=== PATIENT | male | born 1935 | race Caucasian/White ===

== ENCOUNTER → 2017-11-01 08:18 | Outpatient (CLI) | payer MEDICARE, SELFPAY ==
[2017-11-01 12:03] LABS: Absolute Lymphocyte Count 1.66 X10^3/ul (0.83-4.51); Absolute Neutrophil Count 2.8 X10^3/uL (2.0-7.7); Basophil# 0.02 X10^3/uL; Basophil% 0.4 % (0-1); Eosinophil# 0.24 X10^3/uL; Eosinophils% 4.5 % (0-5); Hematocrit 40.2 % (40-54); Hemoglobin 12.5 g/dl (13.0-16.5); Lymphocyte # 1.66 X10^3/ul (4.0); Lymphocyte % 31.1 % (19-41); Mean Corp Hgb Conc 31.1 g/gl (32-36); Mean Corpuscular Hgb 30.3 pg (27.0-32.0); Mean Corpuscular Volume 97.6 fL (80-94); Mean Platelet Vol. 11.2 fl (6.2-12.0); Monocyte% 11.2 % (0-10); Neutrophil # 2.82 X10^3/uL (2.7-7.7); Neutrophil % 52.8 % (47-70); POSITIVE COUNT NO; POSITIVE DIFFERENTIAL NO; POSITIVE MORPHOLOGY NO; Platelet Count 136 K/mm3 (150-450); RBC Distribution Width CV 14.9 % (11.6-14.6); RBC Distribution Width SD 53.1 fl (35.1-43.9); Red Blood Count 4.12 M/mm3 (4.6-6.2); White Blood Count 5.3 K/mm3 (4.4-11.0)
[2017-11-01 12:19] LABS: ALB/GLOB Ratio 0.7 RATIO (0.9-2.4); AST(SGOT) 31 U/L (15-37); Alanine Aminotransfer ALT/SGPT 31 U/L (16-61); Albumin, Serum 3.2 g/dL (3.2-5.0); Alkaline Phosphatase 87 U/L (45-117); Anion Gap 5 (5-15); BUN 14 mg/dL (7-18); BUN/Creat Ratio 17.1 RATIO (10-20); Calcium,Total 8.9 mg/dL (8.5-10.1); Chloride 104 mmol/L (98-107); Cholesterol 137 mg/dL (200); Creatinine, Serum 0.82 mg/dL (0.70-1.30); EST Glomerular Filtration Rate 96 mL/min (>60); Est Glom Filt Rate - Afr Amer 116 mL/min (>60); Globulin 4.6 g/dL (2.2-4.2); Glucose 109 mg/dL (74-106); High Density Lipoprotein 54 mg/dL; Protein, Total 7.8 g/dL (6.4-8.2); Rheumatoid Factor < 10.0 IU/mL (<15); Sodium Level 141 mmol/L (136-145); T4 Free Direct 1.14 ng/dL (0.76-1.46); Thyroid Stim Hormone (TSH) 2.28 uIU/mL (0.358-3.74); Triglycerides 107 mg/dL; Very Low Density Lipoprotein 21 mg/dL (5-40)
[2017-11-03 09:54] LABS: CCP IgG Antibodies 70 units (0-19)
== END ==
PROVIDERS: Family Provider Family Medicine; PCP Family Medicine; Visit Provider Family Medicine
DX: I10 Essential (primary) hypertension (principal); K74.3 Primary biliary cirrhosis; E78.5 Hyperlipidemia, unspecified; M06.4 Inflammatory polyarthropathy
CPT/HCPCS: 36415; 80053; 80061; 84439; 84443; 85025; 86200; 86431

== ENCOUNTER → 2017-11-16 14:04 | Outpatient (CLI) | payer MEDICARE, SELFPAY ==
--- NOTE | 2017-11-16 14:13 | RAD_ITS ---
STUDY: X-RAY - RIGHT HAND REASON FOR EXAM: Male, 82 years old. SOME PAIN IN HANDS. HX OF RA. TECHNIQUE: 3 view(s) of the hand. COMPARISON: None. FINDINGS: Normal radiocarpal articulation. Normal distal radioulnar joint. Normal visualized carpal bones. Normal carpal articulations Normal carpometacarpal articulation of the thumb. Normal second through fifth carpometacarpal joints. Normal metacarpi. Normal metacarpophalangeal joint of the thumb. Normal interphalangeal joint of the thumb. Normal proximal and distal phalanges of the thumb. Normal metacarpophalangeal joints of the second through fifth fingers. There is diffuse articular joint space narrowing of the proximal and distal interphalangeal joints of the second through fifth fingers, but without erosive changes or periarticular soft tissue swelling. Normal phalanges of the second through fifth fingers. The soft tissue structures are unremarkable. RAD/Hand Min 3 Views IMPRESSION: There is diffuse articular joint space narrowing of the proximal and distal interphalangeal joints of the second through fifth fingers, but without erosive changes or periarticular soft tissue swelling. Electronically Signed: Josh Vaughn MD at 17:32 EST , Service support ,
--- NOTE | 2017-11-16 14:13 | RAD_ITS ---
STUDY: X-RAY - LEFT HAND REASON FOR EXAM: Male, 82 years old. Pain in joints of both hands. Hx of RA. TECHNIQUE: 3 view(s) of the hand. COMPARISON: None. FINDINGS: Normal radiocarpal articulation. Normal distal radioulnar joint. Normal visualized carpal bones. Normal carpal articulations Normal carpometacarpal articulation of the thumb. Normal second through fifth carpometacarpal joints. Normal metacarpi. There is degenerative arthrosis of the metacarpophalangeal (MCP) joints. Normal interphalangeal joint of the thumb. Normal proximal and distal phalanges of the thumb. Normal metacarpophalangeal joints of the second through fifth fingers. There is diffuse articular joint space narrowing of the proximal and distal interphalangeal joints of the second through fifth fingers, but without erosive changes or periarticular soft tissue swelling. Normal phalanges of the second through fifth fingers. The soft tissue structures are unremarkable. RAD/Hand Min 3 Views IMPRESSION: Degenerative joint disease of the hand, as described above. Electronically Signed: Josh Vaughn MD at 17:32 EST , Service support ,
--- NOTE | 2017-11-16 14:17 | RAD_ITS ---
STUDY: X-RAY - PELVIS REASON FOR EXAM: Male, 82 years old. SOME PAIN IN HIPS. HX OF RA. TECHNIQUE: One view of the pelvis was obtained. COMPARISON: None. FINDINGS: There is a non-specific bowel gas pattern. Normal visualized soft tissue structures. Normal bilateral iliac wings, sacroiliac joints and visualized sacrum. Normal visualized bilateral superior and inferior pubic rami. Normal pubic symphysis. Normal ischial tuberosities. Normal visualized right femoral head. There is osteoarthritic spur formation of the right acetabular rim. There is mild articular joint space narrowing of the right hip. Normal visualized left femoral head. There is osteoarthritic spur formation of the left acetabular rim. There is mild articular joint space narrowing of the left hip. RAD/Pelvis 1 or 2 Views IMPRESSION: Degenerative findings of the hips. Electronically Signed: Josh Vaughn MD at 17:26 EST , Service support ,
--- NOTE | 2017-11-16 14:19 | RAD_ITS ---
STUDY: X-RAY CHEST REASON FOR EXAM: Male, 82 years old. SOME PAIN IN HIPS. HX OF RA. TECHNIQUE: Frontal and lateral view of the chest. COMPARISON: None. FINDINGS: The lungs are clear and expanded. There is no demonstrated pleural abnormality. Normal size heart. Normal mediastinum and tiara. Normal visualized pulmonary arteries. Normal visualized aortic arch and descending thoracic aorta. There are diffuse degenerative changes of the visualized thoracic spine. Normal visualized ribs, clavicles, and shoulders. There is no demonstrated abnormality of the visualized soft tissue structures of the upper abdomen. RAD/Chest PA and Lateral IMPRESSION: There are no acute findings in the chest. Electronically Signed: Josh Vaughn MD at 17:26 EST , Service support ,
[2017-11-16 15:54] LABS: Absolute Lymphocyte Count 2.04 X10^3/ul (0.83-4.51); Absolute Neutrophil Count 3.6 X10^3/uL (2.0-7.7); Basophil# 0.03 X10^3/uL; Basophil% 0.4 % (0-1); Eosinophil# 0.33 X10^3/uL; Eosinophils% 4.9 % (0-5); Hematocrit 40.5 % (40-54); Hemoglobin 12.8 g/dl (13.0-16.5); Lymphocyte # 2.04 X10^3/ul (4.0); Lymphocyte % 30.5 % (19-41); Mean Corp Hgb Conc 31.6 g/gl (32-36); Mean Corpuscular Hgb 30.7 pg (27.0-32.0); Mean Corpuscular Volume 97.1 fL (80-94); Mean Platelet Vol. 11.3 fl (6.2-12.0); Monocyte# 0.68 X10^3/uL; Monocyte% 10.2 % (0-10); Neutrophil # 3.59 X10^3/uL (2.7-7.7); Neutrophil % 53.9 % (47-70); Platelet Count 158 K/mm3 (150-450); RBC Distribution Width SD 53.4 fl (35.1-43.9); Red Blood Count 4.17 M/mm3 (4.6-6.2); White Blood Count 6.7 K/mm3 (4.4-11.0)
[2017-11-16 15:58] LABS: POSITIVE COUNT NO; POSITIVE DIFFERENTIAL NO; POSITIVE MORPHOLOGY NO
[2017-11-16 16:15] LABS: ALB/GLOB Ratio 0.8 RATIO (0.9-2.4); AST(SGOT) 30 U/L (15-37); Alanine Aminotransfer ALT/SGPT 28 U/L (16-61); Albumin, Serum 3.7 g/dL (3.2-5.0); Alkaline Phosphatase 98 U/L (45-117); Anion Gap 5 (5-15); BUN 15 mg/dL (7-18); BUN/Creat Ratio 18.6 RATIO (10-20); CRP < 2.90 mg/L (0.0-3.0); Chloride 101 mmol/L (98-107); Creatinine, Serum 0.81 mg/dL (0.70-1.30); EST Glomerular Filtration Rate 98 mL/min (>60); Erythrocyte Sedimentation Rate 17 mm/hr (0-20); Est Glom Filt Rate - Afr Amer 118 mL/min (>60); Globulin 4.5 g/dL (2.2-4.2); Glucose 87 mg/dL (74-106); Potassium 4.3 mmol/L (3.5-5.1); Protein, Total 8.2 g/dL (6.4-8.2); Sodium Level 137 mmol/L (136-145)
[2017-11-24 14:08] LABS: QNTFERON TB Ag Minus Nil Value < 0 IU/mL (.); QNTFERON TB Ag Value 0.07 IU/mL (.); QNTFERON TB Mitogen Value > 10.00 IU/mL (.); QNTFERON TB Nil Value 0.19 IU/mL (.)
[2017-11-24 14:13] LABS: HEPATITIS B SURFACE AG Negative (Negative); HLA B27 Negative (.); Hep B Surface Antibodies Reactive (.); Hep C Antibodies <0.1 s/co ratio (0.0-0.9); QNTIFERON TB Gold Negative (Negative)
== END ==
PROVIDERS: Family Provider Family Medicine; PCP Family Medicine; Visit Provider Internal Medicine Rheumatology
DX: L40.59 Other psoriatic arthropathy (principal); L40.8 Other psoriasis; K21.9 Gastro-esophageal reflux disease without esophagitis; H40.9 Unspecified glaucoma; K74.3 Primary biliary cirrhosis; I25.10 Atherosclerotic heart disease of native coronary artery without angina pectoris; E78.5 Hyperlipidemia, unspecified; N40.1 Benign prostatic hyperplasia with lower urinary tract symptoms
CPT/HCPCS: 36415; 71046; 72170; 73130; 80053; 81374; 85025; 85652; 86140; 86480; 86706; 86803; 87340

== ENCOUNTER → 2018-02-06 13:19 | Outpatient (CLI) | payer MEDICARE, SELFPAY ==
[2018-02-06 14:25] LABS: ALB/GLOB Ratio 0.8 RATIO (0.9-2.4); AST(SGOT) 25 U/L (15-37); Alanine Aminotransfer ALT/SGPT 21 U/L (16-61); Albumin, Serum 3.3 g/dL (3.2-5.0); Alkaline Phosphatase 92 U/L (45-117); Anion Gap 6 (5-15); BUN 15 mg/dL (7-18); BUN/Creat Ratio 17.1 RATIO (10-20); Calcium,Total 9.2 mg/dL (8.5-10.1); Chloride 103 mmol/L (98-107); Creatinine, Serum 0.88 mg/dL (0.70-1.30); EST Glomerular Filtration Rate 89 mL/min (>60); Est Glom Filt Rate - Afr Amer 108 mL/min (>60); Globulin 4.2 g/dL (2.2-4.2); Glucose 102 mg/dL (74-106); Potassium 4.2 mmol/L (3.5-5.1); Protein, Total 7.5 g/dL (6.4-8.2); Sodium Level 141 mmol/L (136-145)
== END ==
PROVIDERS: Family Provider Family Medicine; PCP Family Medicine; Visit Provider Internal Medicine Rheumatology
DX: L40.59 Other psoriatic arthropathy (principal); L40.9 Psoriasis, unspecified; L40.8 Other psoriasis; K21.9 Gastro-esophageal reflux disease without esophagitis; H40.9 Unspecified glaucoma; K74.3 Primary biliary cirrhosis; I25.10 Atherosclerotic heart disease of native coronary artery without angina pectoris; E78.5 Hyperlipidemia, unspecified; N40.1 Benign prostatic hyperplasia with lower urinary tract symptoms
CPT/HCPCS: 36415; 80053

== ENCOUNTER → 2018-07-21 14:48 | Outpatient (CLI) | payer MEDICARE, SELFPAY ==
[2018-07-21 16:15] LABS: Absolute Lymphocyte Count 2.14 X10^3/ul (0.83-4.51); Absolute Neutrophil Count 2.9 X10^3/uL (2.0-7.7); Basophil# 0.01 X10^3/uL; Basophil% 0.2 % (0-1); Eosinophil# 0.24 X10^3/uL; Eosinophils% 4.1 % (0-5); Hematocrit 40.5 % (40-54); Hemoglobin 12.8 g/dl (13.0-16.5); Lymphocyte # 2.14 X10^3/ul (4.0); Lymphocyte % 36.2 % (19-41); Mean Corp Hgb Conc 31.6 g/gl (32-36); Mean Corpuscular Hgb 31.8 pg (27.0-32.0); Mean Corpuscular Volume 100.5 fL (80-94); Mean Platelet Vol. 11.3 fl (6.2-12.0); Monocyte# 0.65 X10^3/uL; Neutrophil # 2.87 X10^3/uL (2.7-7.7); Neutrophil % 48.5 % (47-70); Platelet Count 117 K/mm3 (150-450); RBC Distribution Width CV 14.7 % (11.6-14.6); RBC Distribution Width SD 52.9 fl (35.1-43.9); Red Blood Count 4.03 M/mm3 (4.6-6.2); White Blood Count 5.9 K/mm3 (4.4-11.0)
[2018-07-21 16:17] LABS: POSITIVE COUNT NO; POSITIVE DIFFERENTIAL NO; POSITIVE MORPHOLOGY NO
[2018-07-21 16:38] LABS: ALB/GLOB Ratio 0.8 RATIO (0.9-2.4); AST(SGOT) 27 U/L (15-37); Alanine Aminotransfer ALT/SGPT 30 U/L (16-61); Albumin, Serum 3.3 g/dL (3.2-5.0); Alkaline Phosphatase 85 U/L (45-117); Anion Gap 6 (5-15); BUN 15 mg/dL (7-18); BUN/Creat Ratio 16.2 RATIO (10-20); Calcium,Total 8.8 mg/dL (8.5-10.1); Chloride 104 mmol/L (98-107); Creatinine, Serum 0.93 mg/dL (0.70-1.30); EST Glomerular Filtration Rate 83 mL/min (>60); Est Glom Filt Rate - Afr Amer 101 mL/min (>60); Globulin 4.3 g/dL (2.2-4.2); Glucose 77 mg/dL (74-106); Potassium 4.4 mmol/L (3.5-5.1); Protein, Total 7.6 g/dL (6.4-8.2); Sodium Level 142 mmol/L (136-145); Thyroid Stim Hormone (TSH) 1.69 uIU/mL (0.358-3.74)
== END ==
PROVIDERS: Family Provider Family Medicine; PCP Family Medicine; Visit Provider Family Medicine
DX: K74.3 Primary biliary cirrhosis (principal); I10 Essential (primary) hypertension; E78.5 Hyperlipidemia, unspecified
CPT/HCPCS: 36415; 80053; 84443; 85025

== ENCOUNTER → 2019-04-16 11:00 | Outpatient (CLI) | payer MEDICARE, SELFPAY ==
[2019-04-16 12:26] LABS: Absolute Lymphocyte Count 1.83 X10^3/uL (0.83-4.51); Basophil# 0.03 X10^3/uL; Basophil% 0.5 % (0-1); Eosinophil# 0.25 X10^3/uL; Eosinophils% 4.3 % (0-5); Hematocrit 41.7 % (40-54); Hemoglobin 13.6 g/dL (13.0-16.5); Lymphocyte # 1.83 X10^3/ul (4.0); Lymphocyte % 31.6 % (19-41); Mean Corp Hgb Conc 32.6 g/dL (32-36); Mean Corpuscular Hgb 31.9 pg (27.0-32.0); Mean Corpuscular Volume 97.7 fL (80-94); Mean Platelet Vol. 10.9 fl (6.2-12.0); Monocyte# 0.66 X10^3/uL; Monocyte% 11.4 % (0-10); NRBC Flagged by Analyzer 0 % (0-5); Neutrophil # 3.01 X10^3/uL (2.7-7.7); Platelet Count 135 K/mm3 (150-450); RBC Distribution Width CV 13.9 % (11.6-14.6); Red Blood Count 4.27 M/mm3 (4.6-6.2); White Blood Count 5.8 K/mm3 (4.4-11.0)
[2019-04-16 12:54] LABS: ALB/GLOB Ratio 0.8 RATIO (0.9-2.4); AST(SGOT) 29 U/L (15-37); Alanine Aminotransfer ALT/SGPT 25 U/L (16-61); Albumin, Serum 3.4 g/dL (3.2-5.0); Alkaline Phosphatase 89 U/L (45-117); Anion Gap 9 (5-15); BUN 16 mg/dL (7-18); BUN/Creat Ratio 20.3 RATIO (10-20); Calcium,Total 9.1 mg/dL (8.5-10.1); Chloride 104 mmol/L (98-107); Creatinine, Serum 0.79 mg/dL (0.70-1.30); EST Glomerular Filtration Rate 100 mL/min (>60); Est Glom Filt Rate - Afr Amer 121 mL/min (>60); Globulin 4.3 g/dL (2.2-4.2); Glucose 88 mg/dL (74-106); Potassium 4.1 mmol/L (3.5-5.1); Protein, Total 7.7 g/dL (6.4-8.2); Sodium Level 142 mmol/L (136-145)
[2019-04-16 12:55] LABS: Erythrocyte Sedimentation Rate 55 mm/hr (0-20)
== END ==
PROVIDERS: Family Provider Family Medicine; PCP Family Medicine; Visit Provider Family Medicine
DX: E78.5 Hyperlipidemia, unspecified (principal); M06.9 Rheumatoid arthritis, unspecified; D69.6 Thrombocytopenia, unspecified; K74.3 Primary biliary cirrhosis
CPT/HCPCS: 36415; 80053; 84439; 84443; 85025; 85652

== ENCOUNTER 2019-06-02 16:11 | Inpatient (IN) | payer MEDICARE, SELFPAY ==
[2019-06-02] VITALS (9 sets, daily range): BP systolic 127–170; BP diastolic 60–77; PULSE 44–62; RESP 14–16; TEMP 36.5–36.6; O2SAT 95–99; BMI 33.0; BMI 32.0
--- NOTE | 2019-06-02 16:26 | EKG12_ITS ---
Test Reason : CP Blood Pressure : / mmHG Vent. Rate : 045 BPM Atrial Rate : 045 BPM P-R Int : 202 ms QRS Dur : 084 ms QT Int : 458 ms P-R-T Axes : 050 009 071 degrees QTc Int : 396 ms Sinus bradycardia Otherwise normal ECG Confirmed by VICTOR MANUEL FREDERICK, GORDON ([id number]), publications editor DENISE MONTESINOS ([id number]) on 06/05/2019 11:50:38 AM Referred By: CHI Confirmed By:GUILLERMO RUSH MD
--- NOTE | 2019-06-02 16:30 | RAD_ITS ---
STUDY: X-RAY CHEST REASON FOR EXAM: Male, 84 years old. Chest pain TECHNIQUE: Single AP portable view of the chest. COMPARISON: Prior study of November 16, 2017 FINDINGS: night monitor leads are present. The lungs are clear and expanded. There is no demonstrated pleural abnormality. Normal size heart. Normal mediastinum and tiara. Normal visualized pulmonary arteries. There are calcified plaques of the aortic arch. Normal visualized thoracic spine. Normal visualized ribs, clavicles, and shoulders. There is no demonstrated abnormality of the visualized soft tissue structures of the upper abdomen. RAD/Chest 1 View (Portable) IMPRESSION: Calcified plaques of the aortic arch. No acute cardiopulmonary disease process is seen. Electronically Signed: Rahul Bailey MD at 17:05 EDT , Service support ,
[2019-06-02 16:48] LABS: Absolute Lymphocyte Count 2.37 X10^3/uL (0.83-4.51); Absolute Neutrophil Count 2.9 X10^3/uL (2.0-7.7); Basophil# 0.03 X10^3/uL; Basophil% 0.5 % (0-1); Eosinophils% 4.8 % (0-5); Hematocrit 41.7 % (40-54); Hemoglobin 13.2 g/dL (13.0-16.5); Lymphocyte # 2.37 X10^3/ul (4.0); Lymphocyte % 37.7 % (19-41); Mean Corp Hgb Conc 31.7 g/dL (32-36); Mean Corpuscular Hgb 31.7 pg (27.0-32.0); Monocyte# 0.64 X10^3/uL; Monocyte% 10.2 % (0-10); NRBC Flagged by Analyzer 0 % (0-5); Neutrophil # 2.93 X10^3/uL (2.7-7.7); Neutrophil % 46.6 % (47-70); Platelet Count 135 K/mm3 (150-450); RBC Distribution Width CV 13.8 % (11.6-14.6); RBC Distribution Width SD 50.4 fl (35.1-43.9); Red Blood Count 4.17 M/mm3 (4.6-6.2); White Blood Count 6.3 K/mm3 (4.4-11.0)
[2019-06-02] MEDS: Aspirin 81 MG TAB.CHEW 324 MG PO (16:51)
[2019-06-02 17:05] LABS: Anion Gap 0 (5-15); BUN 16 mg/dL (7-18); BUN/Creat Ratio 18.9 RATIO (10-20); Calcium,Total 9.2 mg/dL (8.5-10.1); Chloride 105 mmol/L (98-107); Creatinine, Serum 0.85 mg/dL (0.70-1.30); EST Glomerular Filtration Rate 92 mL/min (>60); Est Glom Filt Rate - Afr Amer 112 mL/min (>60); Estimated Creatinine Clearance 73.54 ml/min; Glucose 88 mg/dL (74-106); Potassium 4.2 mmol/L (3.5-5.1); Sodium Level 139 mmol/L (136-145)
--- NOTE | 2019-06-02 17:19 | ED.DCSUM_ITS ---
- ER Visit Summary Date of Service: 06/02/19 Chief Complaint: Dyspnea History of Present Illness: The patient is a 84 M history of CAD with [address] in 2009 and one earlier this year. No history of CAD and hypertension. Patient states that since he is had exertional dyspnea and nausea. No chest pain. States he is on a treadmill on accelerated heart rate and dyspneic also diaphoresis. He denies any fever or chills. No hemoptysis. No leg swelling. Physical Examination: Older male no acute distress vital signs stable afebrile. Heart rate 49 and next around his baseline. HEENT exam unremarkable. Neck nontender no JVD. Lungs clear to auscultation bilaterally. Heart regular rhythm rate about 50 no murmur. Chest were nontender. Abdomen soft nontender. Normal bowel sounds no peritoneal signs. Moving all 4 extremities. Calves nontender without edema or cords. Equal symmetrical radial pulses. Neurologically is awake and alert with no focal motor deficits. Test Results: Chest x-ray portable one view shows no acute abnormality read both by myself the radiologist. EKG sinus bradycardia rate of 45 with no acute signs of SD or ischemia. CBC unremarkable white count of 6 and hemoglobin 13. Chemistries unremarkable normal creatinine and gap. Troponin is slightly abnormal at 0.135. Emergency Department Course and Treatment: Patient treated with p.o. aspirin. On repeat exam at 1717 p.m. he is unchanged. Remains pain-free. He and I and his discussed all this test results and plan for admission. Treatment Plan: Hospitalist on page for admission. Disposition: Admission Impression: Acute exertional dyspnea Abnormal troponin History of CAD with 3 cardiac stents This note was generated with [employer] dictation software. It may contain incorrect words, spelling, and punctuation that were not noted in review of the chart prior to signing ED Disposition - Plan for ED Patient: Referrals: Manuel Logan MD [Primary Care Provider] -
--- NOTE | 2019-06-02 17:46 | NURSING ---
89 WAN EXERTIONAL DYSPNEA, ABN TROP, CAD
--- NOTE | 2019-06-02 17:59 | PCM.HP.STD ---
Problem List (1) Anginal equivalent Status: Acute (2) Nonrheumatic aortic valve stenosis Status: Chronic (3) Essential hypertension Status: Chronic (4) Atherosclerosis of coronary artery of [place] heart without angina pectoris Status: Chronic Comment: 2.75 x 15 mm Promus to mid LAD, 3.0 x 12 mm Promus to proximal LAD 08/14/10; 2.5 x 8 mm Xience Alpine FIDEL to mid LAD 11/15/16 (5) Presence of stent in coronary artery Status: Chronic Comment: 2.75 x 15 mm Promus to mid LAD, 3.0 x 12 mm Promus to proximal LAD 08/14/10; 2.5 x 8 mm Xience [place]pine FIDEL to mid LAD 11/15/16 (6) Primary biliary cirrhosis Status: Chronic (7) Cholelithiasis without obstruction Status: Chronic (8) Hyperlipidemia Status: Chronic History of Present Illness Date of Admission: 06/02/19 Chief Complaint: Dyspnea on exertion The patient is a 84 year old M with history of coronary artery disease status post 3 stent, last one in 2016 came to ED with dyspnea on exertion since . He had similar presentation of dyspnea on exertion during previous episodes of [place] where he required stenting. Last , patient was on treadmill and felt dyspnea and nausea and diaphoresis. Since then he gets shortness of breath on exertion and climbing stairs. Denies any chest pressure chest pain but he never had during previous [place] episodes. In ED, EKG was done and reported a sinus bradycardia at 45 bpm. NE interval 202 ms. Previous EKG in October 2016 reported a sinus bradycardia with sinus arrhythmia at [address]-T changes suggestive of ischemia. First troponin is elevated 0.135. [] Past Medical History Past Medical History (Chronic Problems): Chronic Problems (Last Updated 05/25/19 @ 09:58 by Gini Estrada) Nonrheumatic aortic valve stenosis (Chronic) Essential hypertension (Chronic) Atherosclerosis of coronary artery of [place] heart without angina pectoris (Chronic) 2.75 x 15 mm Promus to mid LAD, 3.0 x 12 mm Promus to proximal LAD 08/14/10; 2.5 x 8 mm Xience Alpine FIDEL to mid LAD 11/15/16 Presence of stent in coronary artery (Chronic) 2.75 x 15 mm Promus to mid LAD, 3.0 x 12 mm Promus to proximal LAD 08/14/10; 2.5 x 8 mm Xience Alpine FIDEL to mid LAD 11/15/16 Primary biliary cirrhosis (Chronic) Cholelithiasis without obstruction (Chronic) Hyperlipidemia (Chronic) Medical History: Medical History (Last Updated 05/25/19 @ 09:58 by Gini Estrada) Nonrheumatic aortic valve stenosis (Chronic) I35.0 Essential hypertension (Chronic) I10 Atherosclerosis of coronary artery of [place] heart without angina pectoris (Chronic) I25.10 2.75 x 15 mm Promus to mid LAD, 3.0 x 12 mm Promus to proximal LAD 08/14/10; 2.5 x 8 mm Xience Alpine FIDEL to mid LAD 11/15/16 Primary biliary cirrhosis (Chronic) K74.3 Cholelithiasis without obstruction (Chronic) K80.20 Hyperlipidemia (Chronic) E78.5 Asthma J45.909 BPH (benign prostatic hyperplasia) N40.0 Bradycardia R00.1 Glaucoma H40.9 Osteoarthritis M19.90 Psoriasis L40.9 Thrombocytopenia D69.6 Allergies Penicillins Allergy (Verified 06/02/19 16:21) Rash Home Medications: Ambulatory Orders Medication Instructions Recorded Aspirin E.C. [Ecotrin] 81 mg PO DAILY@0800 12/06/16 Ezetimibe [Zetia] 10 mg PO DAILY 12/06/16 Ursodiol [Huey] 500 mg PO BID 12/06/16 albuterol sulfate HFA 90 2 puff INHALATION Q4H PRN g 05/25/19 mcg/actuation aerosol inhaler atorvastatin 20 mg tablet 20 mg PO QHS 05/25/19 baclofen 10 mg tablet 10 mg PO TID PRN 05/25/19 finasteride 5 mg tablet 5 mg PO DAILY 05/25/19 lisinopril 2.5 mg tablet 2.5 mg PO DAILY tab 05/25/19 multivitamin tablet 1 tab PO DAILY 05/25/19 nitroglycerin 0.4 mg sublingual 0.4 mg SUBLINGUAL Q5-15M PRN 05/25/19 tablet Brimonidine Tartrate [Alphagan P] 1 drp EACH EYE DAILY PRN 06/02/19 Cetirizine HCl [Zyrtec] 10 mg PO 06/02/19 Clopidogrel Bisulfate [Clopidogrel] 1 tab PO DAILY 06/02/19 Magnesium Hydroxide [Milk of 500 mg PO QHS 06/02/19 Magnesia] Netarsudil Mesylate [Rhopressa] 1 drp EACH EYE DAILY PRN 06/02/19 Travoprost 0.004% [Travatan-Z 1 drp EACH EYE DAILY 06/02/19 0.004% Eye Drop] Surgical History: Surgical History (Last Updated 05/25/19 @ 09:58 by Gini Estrada) Presence of stent in coronary artery (Chronic) Z95.5 2.75 x 15 mm Promus to mid LAD, 3.0 x 12 mm Promus to proximal LAD 08/14/10; 2.5 x 8 mm Xience Alpine FIDEL to mid LAD 11/15/16 History of appendectomy Z90.49 History of cataract extraction Z98.49 History of partial colectomy Z90.49 Surgical History: appendectomy, colectomy - 12 section of colon removed. , tonsillectomy - as infant/child, - - calcification of kidney and gall stones. Smoking Status: Never smoker - *Family History Paternal Family History: Family History (Last Updated 05/25/19 @ 09:42 by Gini Etsrada) Father Hypertension Grandmother Hypertension Review of Systems Constitutional: Denies: Chills, Fever, Weight Change HEENT: Denies: Head Aches, Sinus Congestion, Sinus Drainage Cardiovascular: Reports: Light Headedness. Denies: Chest Pain, Chest Pressure, Chest Tightness, Palpitations Respiratory: Reports: Shortness of breath upon exertion. Denies: Cough, Shortness of breath at rest, Sputum production Gastrointestinal: Denies: Abdominal Pain, Nausea, Vomiting Genitourinary: Denies: Dysuria Musculoskeletal: Denies: Joint Pain, Joint Tenderness Skin: Denies: Rash, Wounds Neurological: Denies: Numbness, Tingling, Focal weakness Psychiatric: Denies: Anxiety, Depression, Homicidal Ideations, Suicidal Ideations Hematologic/ Lymphatic: Denies: Easy Bruising, Easy Bleeding VTE Information - Inpt Only VTE Present on Admission: No VTE Mechan Device Prophylaxis: None VTE Pharm Prophylaxis ordered?: Yes Patient Problems: Active and Suspected Problems (Last Updated 05/25/19 @ 09:58 by Gini Estrada) Anginal equivalent (Acute) - Physical Exam General: Alert, Oriented x3, Cooperative HEENT: Atraumatic, PERRLA, EOMI, Normocephalic Neck: Supple, No JVD, Negative Carotid Bruits Lungs: Clear to auscultation, Normal air movement, No rhonchi, No wheeze, No rales Cardiovascular: Regular rate, Regular Rhythm, Normal S1, Normal S2, No murmurs Abdomen: Bowel Sounds Present, Soft, Non Tender, Non-Distended Extremities: Capillary Refill Less than 3 Seconds, Edema - Subtle 1+ ankle edema. Skin: No rashes, No breakdown Musculoskeletal: No Tenderness to Palpation of Joints or Extremities, Arthritic Changes Neurological: Cranial nerves II-XII grossly intact, Deep Tendon Reflexes 2+/4 and Symmetrical, Neuro grossly intact, Motor Exam 5/5 strength throughout Psych/Mental Status: Normal Affect, Appropriate Vital Signs Temp Pulse Resp BP Pulse Ox 97.7 F L 48 L 16 155/75 H 98 06/02/19 16:13 06/02/19 17:36 06/02/19 17:36 06/02/19 17:36 06/02/19 17:36 Oxygen Delivery Method Room Air Weight: 244 lb 0.827 oz Body Mass Index (BMI) 33.0 Laboratory Tests Past 24 Hrs 06/02/19 06/02/19 16:20 16:20 WBC 6.3 RBC 4.17 L Hgb 13.2 Hct 41.7 MCV 100.0 H MCH 31.7 MCHC 31.7 L RDW Std Deviation 50.4 H RDW Coeff of Angelia 13.8 Plt Count 135 L MPV 11.0 Immature Gran % (Auto) 0.200 Neut % (Auto) 46.6 L Lymph % (Auto) 37.7 [place] % (Auto) 10.2 H Eos % (Auto) 4.8 Baso % (Auto) 0.5 Absolute Neuts (auto) 2.9 Absolute Lymphs (auto) 2.37 Nucleated RBC % 0 Sodium 139 Potassium 4.2 Chloride 105 Carbon Dioxide 34.0 H Anion Gap 0 L BUN 16 Creatinine 0.85 Estim Creat Clear Calc 73.54 Est GFR (MDRD) Af Amer 112 Est GFR (MDRD) Non-Af 92 BUN/Creatinine Ratio 18.9 Glucose 88 Calcium 9.2 Troponin I 0.135 H Assessment/Plan All Active Problems (Last Updated 05/25/19 @ 09:58 by Gini Estrada) Anginal equivalent (Acute) The patient is a 84 year old M with history of coronary artery disease status post 3 stent, last one in 2016 came to ED with dyspnea on exertion since . He had similar presentation of dyspnea on exertion during previous episodes of [place] where he required stenting. Last , patient was on treadmill and felt dyspnea and nausea and diaphoresis. Since then he gets shortness of breath on exertion and climbing stairs. Denies any chest pressure chest pain but he never had during previous [place] episodes. In ED, EKG was done and reported a sinus bradycardia at 45 bpm. NE interval 202 ms. Previous EKG in October 2016 reported a sinus bradycardia with sinus arrhythmia at [address]-T changes suggestive of ischemia. First troponin is elevated 0.135. 1. Angina equivalent; most probably non-STEMI with history of coronary artery status post stents: In view of previous history of similar episodes, it seems patient has non-STEMI. Cycle cardiac enzymes. Patient's data support specialist Dr. [place] who did PCI in [facility]. We will consult him. Continue aspirin and Plavix. Started on Lovenox 1 mg/kg body weight twice daily. Patient has a history of coronary artery disease status post 3 stents, 2 stents in 2009 and 2016. Patient heart rate in 40s therefore does not qualify for beta-marilee. On lisinopril. Echo is ordered. 2. Valvular heart disease with mild MR, mild aortic stenosis mild to moderate AI with chronic heart failure with preserved EF: Patient had echo in July 2017 reported as EF 55% with segmental wall dysfunction. Left atrium mildly enlarged. Right atrium mildly enlarged. Normal RV size and systolic function. Mild MR. 1-2+ TR, RVSP is 28 mmHg. Mild aortic stenosis with mild to moderate AI. 3. Hypertension and dyslipidemia. Blood pressure is elevated, 160/60mmHg. Increase lisinopril to 5 mg daily. 4. Primary biliary cirrhosis with cholelithiasis, chronic without obstruction: Patient does not have abdominal pain. On Huey 500 mg twice daily DVT prophylaxis: On Lovenox therapeutic dose. Laboratory Results 06/02/19 16:20: WBC 6.3, RBC 4.17 L, Hgb 13.2, Hct 41.7, MCV 100.0 H, MCH 31.7, MCHC 31.7 L, RDW Std Deviation 50.4 H, RDW Coeff of Angelia 13.8, Plt Count 135 L, MPV 11.0, Immature Gran % (Auto) 0.200, Neut % (Auto) 46.6 L, Lymph % (Auto) 37.7, [place] % (Auto) 10.2 H, Eos % (Auto) 4.8, Baso % (Auto) 0.5, Absolute Neuts (auto) 2.9, Absolute Lymphs (auto) 2.37, Nucleated RBC % 0 06/02/19 16:20: Sodium 139, Potassium 4.2, Chloride 105, Carbon Dioxide 34.0 H, Anion Gap 0 L, BUN 16, Creatinine 0.85, Estim Creat Clear Calc 73.54, Est GFR (MDRD) Af Amer 112, Est GFR (MDRD) Non-Af 92, BUN/Creatinine Ratio 18.9, Glucose 88, Calcium 9.2, Troponin I 0.135 H Clinical Impression(s) from Imaging Studies Chest X-Ray 06/02/19 16:30 IMPRESSION: Calcified plaques of the aortic arch. No acute cardiopulmonary disease process is seen. Code Visit Inpatient E&M: 49160 Init Hosp L3
--- NOTE | 2019-06-02 18:21 | EKG12_ITS ---
Test Reason : DYSRHYTHMIA Blood Pressure : / mmHG Vent. Rate : 045 BPM Atrial Rate : 045 BPM P-R Int : 204 ms QRS Dur : 080 ms QT Int : 460 ms P-R-T Axes : 056 -08 057 degrees QTc Int : 397 ms Sinus bradycardia Otherwise normal ECG When compared with ECG of 02-JUN-2019 16:10, MANUAL COMPARISON REQUIRED, DATA IS UNCONFIRMED Confirmed by NATALIA FREDERICK, JOE ([id number]), script editor DENISE MONTESINOS ([id number]) on 06/05/2019 12:23:22 PM Referred By: WAN Confirmed By:JOE FISHER MD
[2019-06-02] MEDS: Clopidogrel Bisulfate 300 MG Tablet PO (18:32)
[2019-06-02 18:38] LABS: Magnesium 2.2 mg/dL (1.6-2.6)
[2019-06-02 18:41] LABS: AST(SGOT) 25 U/L (15-37); Alanine Aminotransfer ALT/SGPT 23 U/L (16-61); Albumin, Serum 3.3 g/dL (3.2-5.0); Alkaline Phosphatase 86 U/L (45-117); Bilirubin, Direct 0.14 mg/dL (0.00-0.30); Globulin 4.4 g/dL (2.2-4.2); Protein, Total 7.7 g/dL (6.4-8.2)
[2019-06-02] MEDS: 0.9% Normal Saline 1,000 ML 75 ML IV (18:53)
[2019-06-02] MEDS: Enoxaparin 100 MG/ML Syringe SC (18:54)
[2019-06-02 19:16] LABS: BNP,B-Type NATRIURETIC PEPTIDE 90.6 pg/mL (0-100)
[2019-06-02] MEDS: BRIMONIDINE TARTRATE 5 ML DROPS 1 ML OP (21:36)
[2019-06-02] MEDS: Atorvastatin Calcium 20 MG Tablet PO (21:37)
[2019-06-02] MEDS: Lisinopril 5 MG Tablet PO (21:37)
[2019-06-03] VITALS (9 sets, daily range): BP systolic 115–143; BP diastolic 60–88; PULSE 40–53; RESP 16–18; TEMP 36.4–36.7; O2SAT 96–98
--- NOTE | 2019-06-03 05:55 | ECHOD_ITS ---
Version 2 Reason For Study: NSTEMI Procedure This was a 2D Doppler, Color Flow transthoracic echocardiogram. Exam performed portable in patient room. Left Ventricle Normal size and thickness. The estimated ejection fraction is 60 %. Normal diastology for age. No regional wall motion abnormalities noted. Right Ventricle Normal RV size. Normal systolic function. Atria The left atrium is mildly enlarged. The right atrium is mildly enlarged. No doppler evidence for ASD. Mitral Valve There is mild mitral annular calcification. There is no mitral valve stenosis. Mild (1+) mitral valve insufficiency. Tricuspid Valve There is no tricuspid stenosis. Mild tricuspid valve insufficiency. Pulmonary artery systolic pressure is 30 mmHg. Aortic Valve Moderate diffuse aortic valve thickening. Mild aortic stenosis. Mild-Moderate (1-2+) aortic valve insufficiency. Pulmonic Valve There is no pulmonic valvular stenosis. No pulmonic valve insufficiency. Great Vessels Normal aortic root. Pericardium/Pleural No pericardial effusion. MMode/2D Measurements & Calculations LVIDd: 4.5 cm IVSd: 1.1 cm LVOT diam: 2.2 cm LVIDs: 2.6 cm LVPWd: 1.2 cm LVOT area: 3.9 cm2 FS: 42.1 % LAV(MOD-bp): 76.6 ml LVAd ap4: 28.2 cm2 SV(MOD-sp4): 47.9 ml LAV(MOD-bp) Indexed: 33.6 ml/m2 EDV(MOD-sp4): 83.9 ml LAV(MOD-sp2): 88.1 ml EDV(sp4-el): 85.0 ml LAV(MOD-sp4): 64.3 ml LVAs ap4: 15.7 cm2 ESV(MOD-sp4): 35.9 ml ESV(sp4-el): 32.7 ml EF(MOD-sp4): 57.2 % EF(sp4-el): 61.5 % SV(sp4-el): 52.3 ml Aortic Valve Planimetry: 1.6 cm2 LA A4 area: 23.7 cm2 RA A4 area: 18.8 cm2 Time Measurements MV dec time: 0.35 sec Doppler Measurements & Calculations MV E max frantz: 73.8 cm/sec Lat Peak E' Frantz: 8.8 cm/sec Med Peak E' Frantz: 5.5 cm/sec MV A max frantz: 87.8 cm/sec E/E' lat: 8.4 E/E' med: 13.4 MV E/A: 0.84 MV V2 max: 86.3 cm/sec MV P1/2t max frantz: 70.7 cm/sec Ao V2 max: 257.9 cm/sec MV max P.0 mmHg MV P1/2t: 127.7 msec Ao max P.6 mmHg MV V2 mean: 42.5 cm/sec Ao V2 mean: 164.3 cm/sec MV mean P.85 mmHg MV dec slope: 162.3 cm/sec2 Ao mean P.4 mmHg MV V2 VTI: 34.7 cm MVA(P1/2t): 1.7 cm2 Ao V2 VTI: 59.3 cm MVA(VTI): 3.3 cm2 SHRUTHI(I,D): 1.9 cm2 SHRUTHI(V,D): 1.5 cm2 AI max frantz: 378.3 cm/sec LV V1 max: 102.4 cm/sec SV(LVOT): 113.1 ml AI max P.3 mmHg LV V1 max P.2 mmHg LV V1 mean P.4 mmHg AI dec slope: 130.5 cm/sec2 LV V1 mean: 73.4 cm/sec AI P1/2t: 849.3 msec LV V1 VTI: 29.0 cm PA V2 max: 85.7 cm/sec TR max frantz: 251.9 cm/sec TR max P.4 mmHg Interpretation Summary The estimated ejection fraction is 60 %. The left atrium is mildly enlarged. The right atrium is mildly enlarged. Mild (1+) mitral valve insufficiency. Mild aortic stenosis. Mild-Moderate (1-2+) aortic valve insufficiency. Normal diastology for age. Ordering Physician: Jeffrey Berkowitz Referring Physician: Manuel Logan Performed By: Roberto Cadena RCS
[2019-06-03 07:01] LABS: Cholesterol 114 mg/dL (200); High Density Lipoprotein 43 mg/dL; Thyroid Stim Hormone (TSH) 2.49 uIU/mL (0.358-3.74); Triglycerides 131 mg/dL; Very Low Density Lipoprotein 26 mg/dL (5-40)
[2019-06-03] MEDS: BRIMONIDINE TARTRATE 5 ML DROPS 1 ML OP ×2 (09:35→21:06)
[2019-06-03] MEDS: Multivitamins,Therapeutic Tablet 1 TABLET PO ×2 (09:36→18:17)
[2019-06-03] MEDS: Clopidogrel Bisulfate 75 MG Tablet PO (09:36)
[2019-06-03] MEDS: Ezetimibe 10 MG Tablet PO (09:36)
[2019-06-03] MEDS: Finasteride 5 MG Tablet PO (09:36)
[2019-06-03] MEDS: Ursodiol 250 MG Tablet 500 MG PO ×2 (09:36→18:17)
[2019-06-03] MEDS: Aspirin E.C. 81 MG Tablet PO (09:36)
[2019-06-03] MEDS: Enoxaparin 100 MG/ML Syringe SC ×2 (09:36→21:06)
--- NOTE | 2019-06-03 11:48 | PN_ITS ---
Patient Problems: Active and Suspected Problems (Last Updated 05/25/19 @ 09:58 by Gini Estrada) Anginal equivalent (Acute) Subjective: Patient seen and examined. he was admitted with a complaint of shortness of breath with exertion, which had been going on for ~ 2 days prior to admission. He described it as similar to the SOB he got when he got is CT. He had associated naueas and diaphoresis. EKG done on admission showed sinus bradycardia with HR of 45bpm. Initial troponin is 0.135. He is being managed for NSTEMI Patient has no complaints this morning. SOB hasnt recurred, because he has not been moving around much. Review of systems is otherwise negative. Labs and vitals reviewed. Hew has remained bradycardic, with HR going as low as 40. Vitals/I&O's: Vital Signs Temp Pulse Resp BP Pulse Ox 98.1 F 53 L 17 115/62 96 06/03/19 09:27 06/03/19 09:27 06/03/19 09:27 06/03/19 09:27 06/03/19 09:27 Oxygen Delivery Method Room Air Weight: 235 lb 14.314 oz Body Mass Index (BMI) 32.0 Intake and Output for Last 24 Hours 06/01/19 06/02/19 06/03/19 23:59 23:59 23:59 Intake Total 577.5 / 577.5 822.5 / 822.5 Output Total 450 / 450 600 / 600 Balance 127.5 / 127.5 222.5 / 222.5 General: Alert, Oriented x3, Cooperative, No apparent distress HEENT: Atraumatic, PERRLA, EOMI, Normocephalic Oral: No Gingival or Mucosal Lesions/ Ulcerations Neck: Supple Lungs: Clear to auscultation, Normal air movement, No rhonchi, No wheeze, No rales Cardiovascular: Normal S1, Normal S2, No murmurs, Bradycardic Abdomen: Bowel Sounds Present, Soft, Non Tender, Non-Distended, No Hepato- splenomegaly Extremities: No clubbing, No cyanosis, No edema, Capillary Refill Less than 3 Seconds Skin: No rashes, No breakdown Musculoskeletal: No Tenderness to Palpation of Joints or Extremities Lymphatic: No Cervical, Supraclavicular, or Inguinal Adenopathy Neurological: Cranial nerves II-XII grossly intact, Neuro grossly intact, Motor Exam 5/5 strength throughout Psych/Mental Status: Normal Affect, Appropriate, Alert and oriented to time, place, person, mood and affect Laboratory Results 06/02/19 16:20: WBC 6.3, RBC 4.17 L, Hgb 13.2, Hct 41.7, MCV 100.0 H, MCH 31.7, MCHC 31.7 L, RDW Std Deviation 50.4 H, RDW Coeff of Angelia 13.8, Plt Count 135 L, MPV 11.0, Immature Gran % (Auto) 0.200, Neut % (Auto) 46.6 L, Lymph % (Auto) 37.7, [place] % (Auto) 10.2 H, Eos % (Auto) 4.8, Baso % (Auto) 0.5, Absolute Neuts (auto) 2.9, Absolute Lymphs (auto) 2.37, Nucleated RBC % 0 06/02/19 16:20: Sodium 139, Potassium 4.2, Chloride 105, Carbon Dioxide 34.0 H, Anion Gap 0 L, BUN 16, Creatinine 0.85, Estim Creat Clear Calc 73.54, Est GFR (MDRD) Af Amer 112, Est GFR (MDRD) Non-Af 92, BUN/Creatinine Ratio 18.9, Glucose 88, Calcium 9.2, Troponin I 0.135 H 06/02/19 16:20: Total Bilirubin 0.40, Direct Bilirubin 0.14, AST 25, ALT 23, Alkaline Phosphatase 86, Total Protein 7.7, Albumin 3.3, Globulin 4.4 H 06/02/19 16:20: B-Natriuretic Peptide 90.6 06/02/19 16:20: Magnesium 2.2 06/02/19 19:30: Troponin I 0.139 H 06/02/19 22:12: Troponin I 0.132 H 06/03/19 05:25: Triglycerides 131, Cholesterol 114, LDL Cholesterol 45, VLDL Cholesterol 26, HDL Cholesterol 43, TSH 2.49 Diagnostic Data Chest X-Ray 06/02/19 16:30 IMPRESSION: Calcified plaques of the aortic arch. No acute cardiopulmonary disease process is seen. Electronically Signed: Rahul Bailey MD at 17:05 EDT , Service support , Current Medications Acetaminophen (Tylenol) 650 mg PO Q6H PRN PRN PRN Reason: Mild pain 1-3/Temp > 100.7 F Albuterol Sulfate (Ventolin Aerosols) 2.5 mg INHALATION Q2H PRN PRN PRN Reason: SOB/Wheezing Aspirin (Ecotrin) 81 mg PO DAILY@0800 [facility] Last Admin: 06/03/19 09:36 Dose: 81 mg Documented by: Atorvastatin Calcium (Lipitor) 20 mg PO QHS [facility] Last Admin: 06/02/19 21:37 Dose: 20 mg Documented by: Brimonidine Tartrate (Alphagan P) 1 ml OP BID [facility] Last Admin: 06/03/19 09:35 Dose: 1 ml Documented by: Clopidogrel Bisulfate (Plavix) 75 mg PO DAILY [facility] Last Admin: 06/03/19 09:36 Dose: 75 mg Documented by: Dextrose (D50w Syringe) 0 gm IV X1 PRN; Protocol PRN Reason: Hypoglycemia Ezetimibe (Zetia) 10 mg PO DAILY [facility] Last Admin: 06/03/19 09:36 Dose: 10 mg Documented by: Enoxaparin Sodium (Lovenox) 100 mg SC Q12 [facility] Last Admin: 06/03/19 09:36 Dose: 100 mg Documented by: Finasteride (Proscar) 5 mg PO DAILY [facility] Last Admin: 06/03/19 09:36 Dose: 5 mg Documented by: Glucagon () 1 mg IM .X1 PRN PRN Reason: Hypoglycemia Lisinopril (Zestril) 5 mg PO QHS [facility] Last Admin: 06/02/19 21:37 Dose: 5 mg Documented by: Loratadine (Claritin) 10 mg PO DAILY PRN PRN Magnesium Oxide (Magnesium Oxide) 500 mg PO QHS [facility] Last Admin: 06/02/19 21:35 Dose: Not Given Documented by: Melatonin (Melatonin) 3 mg PO QHS PRN PRN PRN Reason: INSOMNIA Morphine Sulfate () 2 mg IV Q3H PRN PRN PRN Reason: Severe Pain (7-10/10) Multivitamins (Multivitamin) 1 tablet PO BIDCM [facility] Last Admin: 06/03/19 09:36 Dose: 1 tablet Documented by: Nitroglycerin (Nitrostat) 0.4 mg SUBLINGUAL Q5M PRN PRN Reason: CARDIAC/CHEST PAIN Ondansetron HCl (Zofran) 4 mg IV Q8H PRN PRN PRN Reason: NAUSEA/VOMITING Oxycodone HCl (Oxyir) 5 mg PO Q4H PRN PRN PRN Reason: Moderate Pain (4-6/10) Senna/Docusate Sodium (Senokot-S, Alexandra-Colace) 2 tablet PO BID PRN PRN PRN Reason: Constipation Sodium Chloride () 10 - 40 ml IV UD PRN PRN Reason: SALINE FLUSH Travoprost (Travatan-Z 0.004% Eye Drop) 1 drop EACH EYE QHS [facility] Last Admin: 06/02/19 21:36 Dose: 1 drop Documented by: [facility] Last Admin: 06/03/19 09:36 Dose: 500 mg Documented by: Medical Necessity - Tobacco Use Smoking Status: Never smoker Assessment/Plan All Active Problems (Last Updated 05/25/19 @ 09:58 by Gini Estrada) Anginal equivalent (Acute) 1. NSTEMI * Initial troponin was 0.135. Troponin subsequently peaked at 0.139 and came down to 0.132. * EKG shows sinus bradycardia which does not appear to be new. * N.p.o. aspirin and Plavix and therapeutic Lovenox. * No beta-marilee given on account of heart rate in the 40s. * 2D echo ordered and is pending. Cardiology consulted. Await recs. * 2. CAD total of 3 stents put on with the last one being in 2017. On aspirin, Plavix, lisinopril and statin. Not on beta-marilee on account of bradycardia. 3. HFpEF: * not in exacerbation * no record of 2D echo in EMR; stress test done in 08/05 showed EF of ~ 64% * BNP was only 90.6 * will monitor * 4. Hypertension: on lisinopril 5. 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 DVT prophylaxis: on therapeutic lovenox Code Visit Inpatient E&M: 56351 [facility] Hosp L3
[2019-06-03] MEDS: Senna/Docusate Sodium 1 Tablet 2 TABLET PO (15:45)
--- NOTE | 2019-06-03 17:13 | CON.PCM_ITS ---
Problem List (1) Anginal equivalent Status: Acute Reason for Consult Date of Consultation: 06/03/19 History of Present Illness: The patient is a 84 year old M with history of coronary artery disease status post 3 stent, last one in 2016 came to ED with dyspnea on exertion since . He had similar presentation of dyspnea on exertion during previous episodes of SD where he required stenting. Last , patient was on treadmill and felt dyspnea and nausea and diaphoresis. Since then he gets shortness of breath on exertion and climbing stairs. Denies any chest pressure chest pain but he never had during previous SD episodes. In ED, EKG was done and reported a sinus bradycardia at 45 bpm. OR interval 202 ms. Previous EKG in October 2016 reported a sinus bradycardia with sinus arrhythmia at [address]-T changes suggestive of ischemia. Troponin is mildly elevated. Review of systems: All systems reviewed. All else is negative except that in the HPI Past Medical History Allergies/Adverse Reactions: Allergies Penicillins Allergy (Verified 06/02/19 16:21) Rash Home Medications: Ambulatory Orders Medication Instructions Recorded Aspirin E.C. [Ecotrin] 81 mg PO DAILY@0800 12/06/16 Ezetimibe [Zetia] 10 mg PO DAILY 12/06/16 Ursodiol [Huey] 500 mg PO BIDCM 12/06/16 albuterol sulfate HFA 90 2 puff INHALATION Q4H PRN g 05/25/19 mcg/actuation aerosol inhaler atorvastatin 20 mg tablet 20 mg PO QHS 05/25/19 baclofen 10 mg tablet 10 mg PO TID PRN 05/25/19 finasteride 5 mg tablet 5 mg PO DAILY 05/25/19 lisinopril 2.5 mg tablet 2.5 mg PO QHS tab 05/25/19 multivitamin tablet 1 tab PO BIDCM 05/25/19 nitroglycerin 0.4 mg sublingual 0.4 mg SUBLINGUAL Q5-15M PRN 05/25/19 tablet Brimonidine Tartrate [Alphagan P] 1 drp EACH EYE BID 06/02/19 Cetirizine HCl [Zyrtec] 10 mg PO DAILY 06/02/19 Clopidogrel Bisulfate [Clopidogrel] 1 tab PO DAILY 06/02/19 Magnesium Hydroxide [Milk of 500 mg PO QHS 06/02/19 Magnesia] Netarsudil Mesylate [Rhopressa] 1 drp EACH EYE DAILY PRN 06/02/19 Travoprost 0.004% [Travatan-Z 1 drp EACH EYE QHS 06/02/19 0.004% Eye Drop] Past Medical History (Chronic Problems): Chronic Problems (Last Updated 05/25/19 @ 09:58 by Gini Estrada) Nonrheumatic aortic valve stenosis (Chronic) Essential hypertension (Chronic) Atherosclerosis of coronary artery of [place] heart without angina pectoris (Chronic) 2.75 x 15 mm Promus to mid LAD, 3.0 x 12 mm Promus to proximal LAD 08/14/10; 2.5 x 8 mm Xience Alpine FIDEL to mid LAD 11/15/16 Presence of stent in coronary artery (Chronic) 2.75 x 15 mm Promus to mid LAD, 3.0 x 12 mm Promus to proximal LAD 08/14/10; 2.5 x 8 mm Xience Alpine FIDEL to mid LAD 11/15/16 Primary biliary cirrhosis (Chronic) Cholelithiasis without obstruction (Chronic) Hyperlipidemia (Chronic) Surgical History: appendectomy, colectomy - 12 section of colon removed. , tonsillectomy - as /child, - - calcification of kidney and gall stones. - *Family History Paternal Family History: Family History (Last Updated 05/25/19 @ 09:42 by Gini Estrada) Father Hypertension Grandmother Hypertension Smoking Status: Never smoker Objective: Vital Signs Temp Pulse Resp BP Pulse Ox 97.5 F L 43 L 16 130/60 H 98 06/03/19 15:27 06/03/19 16:05 06/03/19 15:27 06/03/19 15:27 06/03/19 15:27 Oxygen Delivery Method Room Air Weight: 235 lb 14.314 oz Body Mass Index (BMI) 32.0 Intake and Output for Last 24 Hours 06/01/19 06/02/19 06/03/19 23:59 23:59 23:59 Intake Total 577.5 / 577.5 1302.5 / 1302.5 Output Total 450 / 450 600 / 600 Balance 127.5 / 127.5 702.5 / 702.5 General: Awake, Alert, Oriented x 3 HEENT: Atraumatic Oral: Moist Mucosa Neck: Supple Lungs: Clear to auscultation Cardiovascular: Regular Rhythm Abdomen: Soft Extremities: No edema Skin: No Rashes Psych/Mental Status: Appropriate 06/02/19 16:20: Total Bilirubin 0.40, Direct Bilirubin 0.14 06/02/19 16:20: B-Natriuretic Peptide 90.6 06/02/19 16:20: Magnesium 2.2 06/02/19 19:30: Troponin I 0.139 H 06/02/19 22:12: Troponin I 0.132 H 06/03/19 05:25: Triglycerides 131, Cholesterol 114, LDL Cholesterol 45, VLDL Cholesterol 26, HDL Cholesterol 43 Rhythm: EKG: ECHO: Stress Test: Cardiac Cath: PCI: CT Surgery: Holter monitor: EPS: PPM: CXR: Chest CT Scan: Assessment/Plan 1. Shortness of breath: Symptoms are similar to what patient felt prior to prior PCIs. His cardiac enzymes have gone up a little bit. Treatment options discussed with the patient in detail. We will proceed with coronary angiography. Risks and benefits discussed with patient and his . Agree with dual antiplatelet therapy and heparinization at this time. Patient's presentation would be consistent with a non-STEMI.
[2019-06-03] MEDS: Atorvastatin Calcium 20 MG Tablet PO (21:06)
[2019-06-03] MEDS: Lisinopril 5 MG Tablet PO (21:06)
[2019-06-04] VITALS (14 sets, daily range): BP systolic 113–144; BP diastolic 46–65; PULSE 43–62; RESP 16–18; TEMP 36.4–36.6; O2SAT 96–100
--- NOTE | 2019-06-04 05:00 | EKG12_ITS ---
Test Reason : AM EKG Blood Pressure : / mmHG Vent. Rate : 046 BPM Atrial Rate : 046 BPM P-R Int : 214 ms QRS Dur : 080 ms QT Int : 482 ms P-R-T Axes : 068 -07 058 degrees QTc Int : 421 ms Sinus bradycardia with 1st degree A-V block Otherwise normal ECG When compared with ECG of 02-JUN-2019 18:39, MANUAL COMPARISON REQUIRED, DATA IS UNCONFIRMED Confirmed by NATALIA FREDERICK, JOE ([id number]), photography editor DENISE MONTESINOS ([id number]) on 06/05/2019 12:14:32 PM Referred By: PHIL Confirmed By:JOE FISHER MD
[2019-06-04] MEDS: Clopidogrel Bisulfate 75 MG Tablet PO (05:06)
[2019-06-04] MEDS: Aspirin E.C. 81 MG Tablet PO (05:07)
[2019-06-04 05:33] LABS: International Normalized Ratio 1.1; Prothrombin Time (Protime)PT. 13.8 SECONDS (11.7-14.9)
[2019-06-04 05:36] LABS: Anion Gap 5 (5-15); BUN 16 mg/dL (7-18); BUN/Creat Ratio 19.6 RATIO (10-20); Calcium,Total 9.1 mg/dL (8.5-10.1); Chloride 105 mmol/L (98-107); Creatinine, Serum 0.82 mg/dL (0.70-1.30); EST Glomerular Filtration Rate 96 mL/min (>60); Est Glom Filt Rate - Afr Amer 116 mL/min (>60); Estimated Creatinine Clearance 76.23 ml/min; Glucose 94 mg/dL (74-106); Sodium Level 142 mmol/L (136-145)
[2019-06-04 06:07] LABS: Absolute Lymphocyte Count 2.12 X10^3/uL (0.83-4.51); Basophil# 0.03 X10^3/uL; Basophil% 0.5 % (0-1); Eosinophil# 0.24 X10^3/uL; Eosinophils% 3.9 % (0-5); Hematocrit 39.2 % (40-54); Hemoglobin 12.8 g/dL (13.0-16.5); Lymphocyte # 2.12 X10^3/ul (4.0); Lymphocyte % 34.5 % (19-41); Mean Corp Hgb Conc 32.7 g/dL (32-36); Mean Corpuscular Hgb 31.8 pg (27.0-32.0); Mean Corpuscular Volume 97.5 fL (80-94); Mean Platelet Vol. 10.2 fl (6.2-12.0); Monocyte# 0.76 X10^3/uL; Monocyte% 12.4 % (0-10); NRBC Flagged by Analyzer 0 % (0-5); Neutrophil # 2.97 X10^3/uL (2.7-7.7); Neutrophil % 48.4 % (47-70); Platelet Count 125 K/mm3 (150-450); RBC Distribution Width CV 13.5 % (11.6-14.6); Red Blood Count 4.02 M/mm3 (4.6-6.2); White Blood Count 6.1 K/mm3 (4.4-11.0)
[2019-06-04] MEDS: 0.9% NaCl Peripheral Flush Adult/Peds IV (06:46)
--- NOTE | 2019-06-04 09:47 | CASEMGMT ---
According to the [facility] website, the following are in-network tertiary facilities: [facility], [place], [facility], and [facility]. Joseph MUNIZ CM
[2019-06-04] MEDS: Multivitamins,Therapeutic Tablet 1 TABLET PO (10:24)
[2019-06-04] MEDS: Finasteride 5 MG Tablet PO (10:25)
[2019-06-04] MEDS: Ezetimibe 10 MG Tablet PO (10:25)
[2019-06-04] MEDS: Ursodiol 250 MG Tablet 500 MG PO (10:25)
[2019-06-04] MEDS: BRIMONIDINE TARTRATE 5 ML DROPS 1 ML OP (10:27)
[2019-06-04] MEDS: 0.9% Normal Saline 1,000 ML 60 ML IV (10:32)
--- NOTE | 2019-06-04 12:11 | PCM.PN.CARD ---
Subjectve: No significant overnight events. Objective: Vital Signs Temp Pulse Resp BP Pulse Ox 97.9 F 46 L 16 127/62 H 99 06/04/19 11:45 06/04/19 11:45 06/04/19 11:45 06/04/19 11:45 06/04/19 11:45 Oxygen Delivery Method Room Air Weight: 235 lb 14.314 oz Body Mass Index (BMI) 32.0 Intake and Output for Last 24 Hours 06/02/19 06/03/19 06/04/19 23:59 23:59 23:59 Intake Total 577.5 / 577.5 2182.5 / 2182.5 100 / 100 Output Total 450 / 450 1500 / 1500 650 / 650 Balance 127.5 / 127.5 682.5 / 682.5 -550 / -550 General: Awake, Alert, Oriented x 3 HEENT: Atraumatic Oral: Moist Mucosa Neck: Supple Lungs: Clear to auscultation Cardiovascular: Normal S1, Normal S2 Abdomen: Soft Extremities: No edema Skin: No Rashes Psych/Mental Status: Appropriate 06/04/19 05:05: WBC 6.1, RBC 4.02 L, Hgb 12.8 L, Hct 39.2 L, MCV 97.5 H, MCH 31.8, MCHC 32.7, Plt Count 125 L, MPV 10.2, Immature Gran % (Auto) 0.300, Neut % (Auto) 48.4, Lymph % (Auto) 34.5, [place] % (Auto) 12.4 H, Eos % (Auto) 3.9, Baso % (Auto) 0.5, Absolute Neuts (auto) 3.0, Nucleated RBC % 0 06/04/19 05:05: Sodium 142, Potassium 4.0, Chloride 105, Carbon Dioxide 32.0, Anion Gap 5, BUN 16, Creatinine 0.82, Est GFR (MDRD) Af Amer 116, Est GFR (MDRD) Non-Af 96, BUN/Creatinine Ratio 19.6, Glucose 94, Calcium 9.1 06/04/19 05:05: PT 13.8, INR 1.1 Rhythm: EKG: ECHO: Stress Test: Cardiac Cath: PCI: CT Surgery: Holter monitor: EPS: PPM: CXR: Chest CT Scan: Medical Necessity - Tobacco Use Smoking Status: Never smoker Assessment/Plan 1. Shortness of breath: Coronary angiography was unremarkable. Left heart cath showed normal EDP and LVEF was within normal limits. No significant aortic stenosis or mitral regurgitation either. 2D echo is pending. His heart rate has been low for a long time. It will be reasonable to check his heart rate with ambulation to see if it goes up to see if there is chronotropic incompetence. If his heart rate goes up and his 2D echo is unremarkable, then he can be discharged home. If he continues to have shortness of breath on exertion then we may have to consider pulmonary work-up as an outpatient.
--- NOTE | 2019-06-04 13:52 | DCINST_ITS ---
- Discharge Diagnoses Current Active Problems: Current Active and Chronic Problems (Last Updated 05/25/19 @ 09:58 by Gini Estrada) Anginal equivalent (Acute) You will use the following diet at home:: Cardiac Your food should be the consistency of: Regular Your liquids should be the consistency of: Regular/Thin Discharge Activity: Return to Normal Activity, No Restrictions Call your doctor if you observe: Fever of 101 or Higher, Shortness of breath, Dizziness, Fainting spells, Swelling in the ankles, Chest pain, Increased palpitations (irregular heartbeat) Allergies/Adverse Reactions: Allergies Penicillins Allergy (Verified 06/02/19 16:21) Rash Medications to take at Discharge Aspirin E.C. [Ecotrin] 81 mg PO DAILY@0800 12/06/16 Ezetimibe [Zetia] 10 mg PO DAILY 12/06/16 Ursodiol [Huey] 500 mg PO BIDCM 12/06/16 albuterol sulfate HFA 90 mcg/actuation aerosol inhaler 2 puff INHALATION Q4H PRN g 05/25/19 atorvastatin 20 mg tablet 20 mg PO QHS 05/25/19 baclofen 10 mg tablet 10 mg PO TID PRN 05/25/19 finasteride 5 mg tablet 5 mg PO DAILY 05/25/19 lisinopril 2.5 mg tablet 2.5 mg PO QHS tab 05/25/19 multivitamin tablet 1 tab PO BIDCM 05/25/19 nitroglycerin 0.4 mg sublingual tablet 0.4 mg SUBLINGUAL Q5-15M PRN 05/25/19 Brimonidine Tartrate [Alphagan P] 1 drp EACH EYE BID 06/02/19 Cetirizine HCl [Zyrtec] 10 mg PO DAILY 06/02/19 Clopidogrel Bisulfate [Clopidogrel] 1 tab PO DAILY 06/02/19 Magnesium Hydroxide [Milk of Magnesia] 500 mg PO QHS 06/02/19 Netarsudil Mesylate [Rhopressa] 1 drp EACH EYE DAILY PRN 06/02/19 Travoprost 0.004% [Travatan-Z 0.004% Eye Drop] 1 drp EACH EYE QHS 06/02/19 Primary Care Physician: Manuel Logan MD [Primary Care Provider] - Please follow up with your Primary Care Physician in: 3-5 days Test Results: Test results from this visit will be discussed in further detail at your follow- up appointment, if applicable.
--- NOTE | 2019-06-04 14:09 | PCM.DC.SUM ---
Discharge Date and Diagnosis - Problem List Patient Problems: Active and Suspected Problems (Last Updated 05/25/19 @ 09:58 by Gini No) Anginal equivalent (Acute) Date of Admission: 06/02/19 Date of Discharge: 06/04/19 - Primary Discharge Diagnosis Active and Suspected Problems (Last Updated 05/25/19 @ 09:58 by Gini Nolt) Anginal equivalent (Acute) - Secondary Discharge Diagnosis Chronic Problems (Last Updated 05/25/19 @ 09:58 by Gini No) Nonrheumatic aortic valve stenosis (Chronic) Essential hypertension (Chronic) Atherosclerosis of coronary artery of [place] heart without angina pectoris (Chronic) 2.75 x 15 mm Promus to mid LAD, 3.0 x 12 mm Promus to proximal LAD 08/14/10; 2.5 x 8 mm Xience Alpine FIDEL to mid LAD 11/15/16 Presence of stent in coronary artery (Chronic) 2.75 x 15 mm Promus to mid LAD, 3.0 x 12 mm Promus to proximal LAD 08/14/10; 2.5 x 8 mm Xience Alpine FIDEL to mid LAD 11/15/16 Primary biliary cirrhosis (Chronic) Cholelithiasis without obstruction (Chronic) Hyperlipidemia (Chronic) Hospital Course and Treatment Imaging Results: CXR: IMPRESSION: Calcified plaques of the aortic arch. No acute cardiopulmonary disease process is seen. Echo: Interpretation Summary The estimated ejection fraction is 60 %. The left atrium is mildly enlarged. The right atrium is mildly enlarged. Mild (1+) mitral valve insufficiency. Mild aortic stenosis. Mild-Moderate (1-2+) aortic valve insufficiency. Normal diastology for age. Cardiac Cath: No significant stenosis and no need for stenting. Preserved EF. Consults: Cardiology Operations: None Procedures: 2-D Echocardiogram, Cardiac catheterization Summary of Care Provided: Per HPI: The patient is a 84 year old M with history of coronary artery disease status post 3 stent, last one in 2017 came to ED with dyspnea on exertion since . He had similar presentation of dyspnea on exertion during previous episodes of MA where he required stenting. Last , patient was on treadmill and felt dyspnea and nausea and diaphoresis. Since then he gets shortness of breath on exertion and climbing stairs. Denies any chest pressure chest pain but he never had during previous MA episodes. In ED, EKG was done and reported a sinus bradycardia at 45 bpm. GA interval 202 ms. Previous EKG in October 2016 reported a sinus bradycardia with sinus arrhythmia at [address]-T changes suggestive of ischemia. First troponin is elevated 0.135. Hospital Course: 1. NSTEMI/CAD status post 3 stents/diastolic CHF not currently in exacerbation/HTN/HLD-84 year old M presented with shortness of breath which is however present with his previous MIs necessitating stents in 2017. Initial troponin on admission was 0.135 which peaked 0.139. He underwent a cardiac cath today which was negative for any obstruction and no intervention was necessary. Echocardiogram which was unremarkable per cardiology. Because he has been having a slow heart rate cardiology 1 to be sure that he could respond with activity and therefore they had nursing staff walked the patient in the unit today. His heart rate did climb and therefore cardiology felt that he was safe for discharge home. He denies any significant shortness of breath at this time and no chest pain. I discussed with him the risks and benefits of going home and he would like to go home today. Will send him home with no changes to his medications and he will need to follow-up as an outpatient with his primary care physician as well as cardiology. 2. His other medical diagnoses were evaluated and his home medications were continued where appropriate Patient Problems: Active and Suspected Problems (Last Updated 05/25/19 @ 09:58 by Gini Estrada) Anginal equivalent (Acute) - Physical Exam General: Alert, Oriented x3, Cooperative, No apparent distress HEENT: Atraumatic, PERRLA, EOMI, Normocephalic Oral: Moist Mucosa Neck: Supple, No JVD Lungs: Clear to auscultation, Normal air movement, No rhonchi, No wheeze, No rales Cardiovascular: Regular rate, Regular Rhythm, Normal S1, Normal S2, No murmurs Abdomen: Soft, Non Tender, Non-Distended, No Hepato-splenomegaly Extremities: No edema, Capillary Refill Less than 3 Seconds Skin: No rashes, No breakdown Neurological: Neuro grossly intact, Sensory exam intact to light touch and pain Psych/Mental Status: Normal Affect, Appropriate Vital Signs Temp Pulse Resp BP Pulse Ox 97.8 F 45 L 16 113/46 L 98 06/04/19 13:07 06/04/19 13:07 06/04/19 13:07 06/04/19 13:07 06/04/19 13:07 Oxygen Delivery Method Room Air Weight: 235 lb 14.314 oz Body Mass Index (BMI) 32.0 Intake and Output for Last 24 Hours 06/02/19 06/03/19 06/04/19 23:59 23:59 23:59 Intake Total 577.5 / 577.5 2182.5 / 2182.5 100 / 100 Output Total 450 / 450 1500 / 1500 650 / 650 Balance 127.5 / 127.5 682.5 / 682.5 -550 / -550 Laboratory Tests Past 24 Hrs 06/04/19 06/04/19 06/04/19 05:05 05:05 05:05 WBC 6.1 RBC 4.02 L Hgb 12.8 L Hct 39.2 L MCV 97.5 H MCH 31.8 MCHC 32.7 RDW Std Deviation 49.0 H RDW Coeff of Angelia 13.5 Plt Count 125 L MPV 10.2 Immature Gran % (Auto) 0.300 Neut % (Auto) 48.4 Lymph % (Auto) 34.5 [place] % (Auto) 12.4 H Eos % (Auto) 3.9 Baso % (Auto) 0.5 Absolute Neuts (auto) 3.0 Absolute Lymphs (auto) 2.12 Nucleated RBC % 0 PT 13.8 INR 1.1 Sodium 142 Potassium 4.0 Chloride 105 Carbon Dioxide 32.0 Anion Gap 5 BUN 16 Creatinine 0.82 Estim Creat Clear Calc 76.23 Est GFR (MDRD) Af Amer 116 Est GFR (MDRD) Non-Af 96 BUN/Creatinine Ratio 19.6 Glucose 94 Calcium 9.1 Discharge Activity: Return to Normal Activity, No Restrictions Call your doctor if you observe: Fever of 101 or Higher, Shortness of breath, Dizziness, Fainting spells, Swelling in the ankles, Chest pain, Increased palpitations (irregular heartbeat) Home Medications: Medications to take at Discharge Aspirin E.C. [Ecotrin] 81 mg PO DAILY@0800 12/06/16 Ezetimibe [Zetia] 10 mg PO DAILY 12/06/16 Ursodiol [Huey] 500 mg PO BIDCM 12/06/16 albuterol sulfate HFA 90 mcg/actuation aerosol inhaler 2 puff INHALATION Q4H PRN g 05/25/19 atorvastatin 20 mg tablet 20 mg PO QHS 05/25/19 baclofen 10 mg tablet 10 mg PO TID PRN 05/25/19 finasteride 5 mg tablet 5 mg PO DAILY 05/25/19 lisinopril 2.5 mg tablet 2.5 mg PO QHS tab 05/25/19 multivitamin tablet 1 tab PO BIDCM 05/25/19 nitroglycerin 0.4 mg sublingual tablet 0.4 mg SUBLINGUAL Q5-15M PRN 05/25/19 Brimonidine Tartrate [Alphagan P] 1 drp EACH EYE BID 06/02/19 Cetirizine HCl [Zyrtec] 10 mg PO DAILY 06/02/19 Clopidogrel Bisulfate [Clopidogrel] 1 tab PO DAILY 06/02/19 Magnesium Hydroxide [Milk of Magnesia] 500 mg PO QHS 06/02/19 Netarsudil Mesylate [Rhopressa] 1 drp EACH EYE DAILY PRN 06/02/19 Travoprost 0.004% [Travatan-Z 0.004% Eye Drop] 1 drp EACH EYE QHS 06/02/19 Primary Care Physician: Manuel Logan MD [Primary Care Provider] - Please follow up with your Primary Care Physician in: 3-5 days Please Follow Up With: Manuel Logan MD Disposition: Home Minutes spent on discharge:: 35 Patient Condition:: Stable Medical Necessity - Tobacco Use Smoking Status: Never smoker Meaningful Use Info Meaningful Use Diagnoses (Choose all that apply): None applicable Code Visit Inpatient E&M: 04994 Disch Hosp
--- NOTE | 2019-06-04 14:24 | CASEMGMT ---
Case Management Progress Note: Unable to complete Initial Assessment as patient is currently being Discharged at this time. Per primary nurse no concerns or issues with discharge. Leigha Vega RNCM
--- NOTE | 2019-06-04 14:25 | CASEMGMT ---
Patient has a Healthcare LW and Healthcare POA in his e-chart. Documents were printed and placed in his chart. Malka NOONAN
--- NOTE | 2019-06-05 15:17 | CASEMGMT ---
CRISTY DIALLO Discharge F/U Phone Call LACE: Magdalena Strata: 3 Discharge date: 06/04/19 Call date: 06/05/19 Call time: [id number] Duration: 3 minutes Admission dx: NSTEMI Pt states has been doing 'really well' since discharge and states 'had a good nights sleep.' Pt states even took a small walk today. Pt states no questions regarding discharge instructions or medications at this time. Pt does state concerns with the fact that 'his doctor' didn't see him in the hospital and that 'some other doctor' saw him. Pt states 'I can foresee a lot of problems with that.' Pt states no further questions/concerns/needs at this time. SStaten CRISTY DIALLO
--- NOTE | 2019-06-14 09:58 | CL.D_ITS ---
Patient Name: ARNULFO RUST Study Date: 06/04/2019 Performing: Tristan Montana MD Ht: 72 inches 183 cm : 1935 Wt: 236.2 lbs 107 kg Age: 84 Gender: male BSA: 2.29 PROCEDURE(S) PERFORMED BL38-UUL/COR/LV CLINICAL PROFILE AND INDICATIONS Indications: ACS <= 24 hrs Heart Failure: None Stress/Imaging Stress/Image Study Performed: No CAD Presentations: Non-STEMI. Symptom onset Date/Time: 06/01/19 Time Not Available CONCLUSIONS No significant obstructive stenoses. Patent prior stents. Preserved EF. No significant or MR RECOMMENDATIONS DESCRIPTION OF PROCEDURE The patient arrived to the procedure lab. The risks and benefits of the procedure as well as a full d escription of our services here and current unavailability of surgical backup were fully explained to the patient and/or their significant other prior to the catheterization. The Timeout was completed, verifying the correct patient and procedure. The patient's procedural site was prepped and draped in the usual fashion. Local anesthetic was given subcutaneously to right radial region with Lidocaine 2% . Using a modified Seldinger technique, arterial access was obtained via the right radial artery, a 6 Fr sheath was inserted. Left Coronary Artery selective angiography was performed in multiple views u sing a 5 Fr. JL3.5 catheter. Left Ventriculography was performed in ABDULLAHI projection using a 5 Fr. JR 4 . LV to AO pullback pressures were then recorded. Right Coronary Artery selective angiography was the n performed in multiple views using a 5 Fr. JR 4 catheter.The arterial sheath was pulled and a TR Band was applied for hemostasis CORONARY ANGIOGRAPHY DOMINANCE: Right Dominant LEFT HEART ASSESSMENT Left Ventricular Ejection Fraction: by LV Gram 65 % Normal LV wall motion LEFT MAIN: Mild luminal irregularities LEFT ANTERIOR DESCENDING ARTERY: Mild luminal irregularities PROX LAD: Previously placed stent is patent MID LAD: Previously placed stent is patent DIAGONAL 1: Ostial - 60 % Stenosis. This is a small vessel that is jailed by the stent in the pLAD CIRCUMFLEX ARTERY: Mild luminal irregularities RIGHT CORONARY ARTERY: Mild luminal irregularities VALVE FINDINGS: No Aortic Valve Stenosis No Mitral Insufficency COMPLICATIONS No Complications PROCEDURE MEDICATIONS Fentanyl 50 mcg IV Versed 1 mg IV Oxygen: 2 L/min via nasal cannula Heparin given IA 06/04/2019 09:40:26 Verapamil 2.5mg, Ntg 100mcgs, 3000 units of Heparin given IA 06/04/2019 09:40:26 SUMMARY OF HEMODYNAMIC DATA Time AIR REST ECG 09:20:35 AO 108/50 (72) SA 09:42:53 LV 124/-1, 11 09:51:41 LV 125/-5, 13 09:51:50 LV 131/-2, 14 09:52:44 LVp 123/4, 15 09:52:56 AOp 118/54 (83) 09:53:01 Signed By Tristan Montana MD On 06/04/2019 10:23:48 AM Tristan Montana MD
== END 2019-06-04 15:13 | disposition home or self-care (01) | DRG 287 ==
LOC: ED 16:34 → PCU 17:53
PROVIDERS: Specialist; Student in an Organized Health Care Education/Training Program; Admitting Provider Internal Medicine; Emergency Provider Emergency Medicine; Family Provider Family Medicine; PCP Family Medicine; Visit Provider Family Medicine
DX: I25.118 Atherosclerotic heart disease of native coronary artery with other forms of angina pectoris (principal); I50.32 Chronic diastolic (congestive) heart failure; I11.0 Hypertensive heart disease with heart failure; I35.0 Nonrheumatic aortic (valve) stenosis; I25.2 Old myocardial infarction; K74.3 Primary biliary cirrhosis; E78.5 Hyperlipidemia, unspecified; K80.20 Calculus of gallbladder without cholecystitis without obstruction; Z95.5 Presence of coronary angioplasty implant and graft; Z79.82 Long term (current) use of aspirin; Z79.02 Long term (current) use of antithrombotics/antiplatelets; Z79.899 Other long term (current) drug therapy
CPT/HCPCS: 36415; 71045; 80048; 80061; 80076; 83735; 83880; 84443; 84484; 85025; 85610; 93005; 93306; 93458; 99152; 99153; 99285; J7030; Q9957; A4216; C1769; C1894; Q9967

== ENCOUNTER → 2019-10-10 15:27 | Outpatient (CLI) | payer MEDICARE, SELFPAY ==
[2019-08-29 14:10] VITALS: BMI 32.4
[2019-10-10 17:10] LABS: Absolute Lymphocyte Count 2.14 X10^3/uL (0.83-4.51); Absolute Neutrophil Count 3.5 X10^3/uL (2.0-7.7); Basophil# 0.03 X10^3/uL; Basophil% 0.4 % (0-1); Eosinophils% 4.4 % (0-5); Hematocrit 40.4 % (40-54); Hemoglobin 12.9 g/dL (13.0-16.5); Lymphocyte # 2.14 X10^3/ul (4.0); Lymphocyte % 31.5 % (19-41); Mean Corp Hgb Conc 31.9 g/dL (32-36); Mean Corpuscular Hgb 31.6 pg (27.0-32.0); Mean Platelet Vol. 11.5 fl (6.2-12.0); Monocyte# 0.77 X10^3/uL; Monocyte% 11.3 % (0-10); NRBC Flagged by Analyzer 0 % (0-5); Neutrophil # 3.54 X10^3/uL (2.7-7.7); Neutrophil % 52.3 % (47-70); Platelet Count 130 K/mm3 (150-450); RBC Distribution Width CV 13.9 % (11.6-14.6); RBC Distribution Width SD 50.6 fl (35.1-43.9); Red Blood Count 4.08 M/mm3 (4.6-6.2); White Blood Count 6.8 K/mm3 (4.4-11.0)
[2019-10-10 17:25] LABS: ALB/GLOB Ratio 0.7 RATIO (0.9-2.4); AST(SGOT) 26 U/L (15-37); Alanine Aminotransfer ALT/SGPT 29 U/L (16-61); Albumin, Serum 3.2 g/dL (3.2-5.0); Alkaline Phosphatase 84 U/L (45-117); Anion Gap 1 (5-15); BUN 18 mg/dL (7-18); BUN/Creat Ratio 20.1 RATIO (10-20); Calcium,Total 9.1 mg/dL (8.5-10.1); Chloride 105 mmol/L (98-107); Creatinine, Serum 0.89 mg/dL (0.70-1.30); EST Glomerular Filtration Rate 86 mL/min (>60); Est Glom Filt Rate - Afr Amer 105 mL/min (>60); Globulin 4.4 g/dL (2.2-4.2); Glucose 101 mg/dL (74-106); Potassium 4.1 mmol/L (3.5-5.1); Protein, Total 7.6 g/dL (6.4-8.2); Sodium Level 140 mmol/L (136-145); T4 Free Direct 0.89 ng/dL (0.76-1.46); Thyroid Stim Hormone (TSH) 1.81 uIU/mL (0.358-3.74)
== END ==
PROVIDERS: PCP Family Medicine; Visit Provider Family Medicine
DX: I10 Essential (primary) hypertension (principal); D69.6 Thrombocytopenia, unspecified; K74.3 Primary biliary cirrhosis
CPT/HCPCS: 36415; 80053; 84439; 84443; 85025

== ENCOUNTER → 2019-10-15 10:21 | Outpatient (CLI) | payer MEDICARE, SELFPAY ==
[2019-08-29 14:10] VITALS: BMI 32.4
--- NOTE | 2019-10-15 10:25 | RAD_ITS ---
STUDY: X-RAY - RIGHT FOOT CLINICAL: Male, 84 years old. Arch pain for several months, getting worse TECHNIQUE: 3 view(s) of the foot. COMPARISON: None. FINDINGS: There is a small plantar aspect calcaneal spur. There are mild degenerative changes of the talonavicular joint. Normal metatarsi. Normal metatarsophalangeal joint of the great toe. Normal tibial and fibular sesamoid bones. Normal interphalangeal joint of the great toe. Normal phalanges of the great toe. Normal second through fifth metatarsophalangeal joints. Normal interphalangeal joints and phalanges of the lesser toes. The soft tissue structures are unremarkable. RAD/Foot min 3 Views IMPRESSION: Small plantar aspect calcaneal spur. Mild degenerative changes of the talonavicular joint. Electronically Signed: Rahul Bailey MD at 22:12 EST , Service support ,
== END ==
PROVIDERS: PCP Family Medicine; Referring Provider Family Medicine; Visit Provider Family Medicine
DX: M79.671 Pain in right foot (principal)
CPT/HCPCS: 73630

== ENCOUNTER → 2019-11-28 10:26 | Outpatient (CLI) | payer MEDICARE, SELFPAY ==
[2019-08-29 14:10] VITALS: BMI 32.4
--- NOTE | 2019-11-28 10:31 | RAD_ITS ---
STUDY: X-RAY - LEFT ANKLE REASON FOR EXAM: Male, 84 years old. FALL X 2 DAYS. PT WAS SENT TO ORTHO DR FROM RADIOLOGY TECHNIQUE: 3 view(s) of the ankle. COMPARISON: None. FINDINGS: Acute nondisplaced oblique fracture the distal left fibula the level tibial plafond with surrounding soft tissue swelling. Normal medial and lateral malleoli. Normal tibiotalar articulation and ankle mortise. Normal visualized talus and calcaneus. The visualized subtalar, talonavicular, calcaneocuboid and tarsal articulations are normal. RAD/Ankle min 3 Views IMPRESSION: Acute nondisplaced oblique fracture of the distal left fibula the level of the tibial plafond with surrounding soft tissue swelling. Electronically Signed: Jag Haque MD at 14:44 EDT Tel , Service support ,
== END ==
PROVIDERS: PCP Family Medicine; Referring Provider Family Medicine; Visit Provider Family Medicine
DX: M25.572 Pain in left ankle and joints of left foot (principal)
CPT/HCPCS: 73610

== ENCOUNTER → 2020-01-08 11:18 | Outpatient (CLI) | payer MEDICARE, SELFPAY ==
[2019-12-24 08:42] VITALS: BMI 32.4
--- NOTE | 2020-01-08 11:19 | RAD_ITS ---
STUDY: X-RAY - LEFT ANKLE REASON FOR EXAM: Male, 84 years old. Left ankle pain/fx TECHNIQUE: 3 view(s) of the ankle. COMPARISON: Comparison is made with prior examination dated November 28, 2019. FINDINGS: Healing fracture of the distal left fibula. The alignment is maintained. Normal tibiotalar articulation and ankle mortise. Normal visualized talus and calcaneus. The visualized subtalar, talonavicular, calcaneocuboid and tarsal articulations are normal. Mild degree of soft tissue swelling. RAD/Ankle min 3 Views IMPRESSION: Healing oblique fracture of the distal fibula. The alignment is maintained. Mild overlying soft tissue swelling. Electronically Signed: Charbel Aguayo, at 15:16 EDT , Service support ,
== END ==
PROVIDERS: PCP Family Medicine; Referring Provider Orthopaedic Surgery; Visit Provider Orthopaedic Surgery
DX: S82.839A Other fracture of upper and lower end of unspecified fibula, initial encounter for closed fracture (principal)
CPT/HCPCS: 73610

== ENCOUNTER → 2020-04-28 11:45 | Outpatient (CLI) | payer MEDICARE, SELFPAY ==
[2020-01-28 13:40] VITALS: BMI 32.4
[2020-04-28 14:50] LABS: Absolute Lymphocyte Count 1.94 X10^3/uL (0.83-4.51); Absolute Neutrophil Count 3.1 X10^3/uL (2.0-7.7); Basophil# 0.03 X10^3/uL; Basophil% 0.5 % (0-1); Eosinophil# 0.24 X10^3/uL; Hematocrit 41.3 % (40-54); Lymphocyte # 1.94 X10^3/ul (4.0); Lymphocyte % 32.2 % (19-41); Mean Corp Hgb Conc 31.5 g/dL (32-36); Mean Corpuscular Hgb 31.4 pg (27.0-32.0); Mean Corpuscular Volume 99.8 fL (80-94); Mean Platelet Vol. 10.9 fl (6.2-12.0); Monocyte% 11.6 % (0-10); NRBC Flagged by Analyzer 0 % (0-5); Neutrophil # 3.11 X10^3/uL (2.7-7.7); Neutrophil % 51.5 % (47-70); Platelet Count 154 K/mm3 (150-450); RBC Distribution Width CV 14.1 % (11.6-14.6); RBC Distribution Width SD 51.6 fl (35.1-43.9); Red Blood Count 4.14 M/mm3 (4.6-6.2)
[2020-04-28 15:14] LABS: ALB/GLOB Ratio 0.7 RATIO (0.9-2.4); AST(SGOT) 27 U/L (15-37); Alanine Aminotransfer ALT/SGPT 27 U/L (16-61); Albumin, Serum 3.4 g/dL (3.2-5.0); Alkaline Phosphatase 91 U/L (45-117); Anion Gap 6 (5-15); BUN 14 mg/dL (7-18); BUN/Creat Ratio 16.8 RATIO (10-20); Chloride 101 mmol/L (98-107); Creatinine, Serum 0.83 mg/dL (0.70-1.30); EST Glomerular Filtration Rate 94 mL/min (>60); Est Glom Filt Rate - Afr Amer 114 mL/min (>60); Ferritin 73 ng/mL (26-388); Globulin 4.7 g/dL (2.2-4.2); Glucose 96 mg/dL (74-106); Iron 89 ug/dL (65-175); Potassium 4.2 mmol/L (3.5-5.1); Protein, Total 8.1 g/dL (6.4-8.2); Sodium Level 139 mmol/L (136-145)
== END ==
PROVIDERS: PCP Family Medicine; Visit Provider Family Medicine
DX: D69.6 Thrombocytopenia, unspecified (principal); K74.3 Primary biliary cirrhosis; E78.5 Hyperlipidemia, unspecified
CPT/HCPCS: 36415; 80053; 82728; 83540; 85025

== ENCOUNTER 2020-06-06 17:28 | Inpatient (IN) | payer MEDICARE, SELFPAY ==
[2020-01-28 13:40] VITALS: BMI 32.4
[2020-06-06 17:40] VITALS: BP 150/76; PULSE 63; RESP 18; TEMP 36; O2SAT 99; BMI 32.5
--- NOTE | 2020-06-06 18:31 | RAD_ITS ---
STUDY: X-RAY - LEFT WRIST REASON FOR EXAM: Male, 85 years old. FALL, LEFT WRIST PAIN TECHNIQUE: 3 view(s) of the wrist were obtained. COMPARISON: None. FINDINGS: Significant demineralization of the bony structures. A mildly displaced fractures present on the dorsal surface of the triquetrum. No additional visualized acute fractures. Moderate soft tissue swelling is present. Normal radiocarpal articulation. Normal distal radioulnar articulation. Normal carpal bones. Normal carpal articulations. Normal carpometacarpal articulation of the thumb. Normal second through fifth carpometacarpal articulations. RAD/Wrist min 3 Views IMPRESSION: Acute displaced chip fracture on the dorsal surface of the triquetrum Electronically Signed: Luis Paul MD at 19:05 EDT , Service support ,
--- NOTE | 2020-06-06 18:32 | RAD_ITS ---
STUDY: X-RAY - RIGHT WRIST REASON FOR EXAM: Male, 85 years old. FALL, RIGHT WRIST PAIN TECHNIQUE: 3 view(s) of the wrist were obtained. COMPARISON: None. FINDINGS: Small slightly displaced vertical fracture through the posterior/dorsal aspect of the right triquetral bone is seen on the lateral view. Mild to moderate overlying soft tissue swelling is present. No additional acute fractures are present. The bony structures are demineralized. Normal visualized distal radius and ulna. Normal radiocarpal articulation. Normal distal radioulnar articulation. Normal carpal articulations. RAD/Wrist min 3 Views IMPRESSION: 1. Small slightly displaced vertical fracture through the posterior/dorsal aspect of the right triquetral bone is seen on the lateral view. Electronically Signed: Luis Paul MD at 19:37 EDT , Service support ,
--- NOTE | 2020-06-06 18:40 | RAD_ITS ---
STUDY: X-RAY - LEFT KNEE REASON FOR EXAM: Male, 85 years old. FALL, LEFT KNEE PAIN TECHNIQUE: 4 view(s) of the knee. COMPARISON: None. FINDINGS: An acute nondisplaced vertical fracture is present in the lateral patellar facet near the midline. There is demineralization of the visualized distal femur. There is demineralization of the tibia and fibula. Normal proximal tibiofibular articulation. There is mild degenerative arthrosis of the medial femorotibial compartment. Normal lateral femorotibial compartment. There is moderate degenerative arthrosis of the patellofemoral articulation. There is a large volume joint effusion. Mild soft tissue swelling is present. RAD/Knee 3 Views IMPRESSION: 1. Acute nondisplaced fracture of the lateral patellar facet and large joint effusion. Electronically Signed: Luis Paul MD at 19:03 EDT , Service support ,
--- NOTE | 2020-06-06 19:18 | CT_ITS ---
HISTORY: FELL THIS AM NOW HAVING BALANCE ISSUES, NOSE ABRASIONS TECHNIQUE: Helically acquired images were obtained of the facial bones without intravenous contrast. A radiation dose optimization technique was used for this scan. COMPARISON: None FINDINGS: # of images incl. paperwork: [phone] Small amounts of fluid within the left maxillary sinus and a few ethmoid air cells. Mastoid air cells are free of disease.. Mastoid air cells are free of disease. There is an abrupt angulation within the left side of the nasal bone. This may represent an acute fracture. Orbits and globes are normal. Visualized portions of the upper cervical spine are normal. Soft tissue swelling is present possibly over the nasal bridge. CT/Sinus/Facial Bone IMPRESSION: Possible left-sided nasal bone acute fracture. Individualized dose optimization techniques were used for this CT. at 2029 Reported and signed by: Emmanuel Mitchell MD Electronically Signed: Emmanuel Mitchell MD at 20:28 EDT Tel , Service support ,
--- NOTE | 2020-06-06 19:18 | CT_ITS ---
HISTORY: FELL THIS AM NOW HAVING BALANCE ISSUES, NOSE ABRASIONS Technique:CT Head or Brain W/O Contrast Injection Number of Images including paperwork:258 Comparison: None available. Findings: CT images of the head were obtained without contrast. Periventricular deep and subcortical white matter disease is present. Several ethmoid air cells are opacified. A tiny amount of fluid is present within the inferior aspect of the left maxillary sinus and the left sphenoid sinus.. The brain is atrophic. Calcific ASCVD involves intracranial arteries. No acute intracranial edema or hemorrhage. No acute abnormality of orbits. Middle ear cavities and mastoid air cells are well aerated. Skull is normal. CT/Brain/Head without Contrast IMPRESSION: No acute intracranial abnormality. Chronic changes as above. ASPECT 10. Individualized dose optimization techniques were used for this CT. at 2027 Reported and signed by: Emmanuel Mitchell MD Electronically Signed: Emmanuel Mitchell MD at 20:26 EDT Tel , Service support ,
--- NOTE | 2020-06-06 19:19 | CT_ITS ---
HISTORY: FELL THIS AM NOW HAVING BALANCE ISSUES, NOSE ABRASIONS TECHNIQUE: Helically acquired images were obtained of the cervical spine without contrast. 2D reformatted images were reviewed. A radiation dose optimization technique was used for this scan. COMPARISON: None FINDINGS: # of images incl. paperwork: [phone] Vertebral body height is fairly well-preserved. Some arthritis is present at the anterior arch of C1 odontoid articulation with sclerosis and osteophytes Degenerative malalignment is present. Disc degenerative malalignment is due to degenerative disc disease. Degenerative disc disease is greatest at theC5-C6 and C6-C7 levels. This disease is manifested by loss of disc height, endplate sclerosis, and anterior and posterior enthesophytes. Facets are well aligned with arthropathy. Calcific plaque within bilateral carotid bulbs Prevertebral and paraspinal soft tissues are normal. No bones are fractured. Visualized portions of the mastoid air cells are free of disease. CT/Spine Cervical without Contras IMPRESSION: Multilevel degenerative disc disease without acute fracture or traumatic subluxation. Individualized dose optimization techniques were used for this CT. at 2034 Reported and signed by: Emmanuel Mitchell MD Electronically Signed: Emmanuel Mitchell MD at 20:33 EDT Tel , Service support ,
[2020-06-06] MEDS: Diphth,Pertuss(Acell),Tet Vac 0.5 ML Vial IM (19:51)
[2020-06-06 20:32] LABS: Absolute Lymphocyte Count 1.69 X10^3/uL (0.83-4.51); Absolute Neutrophil Count 5.7 X10^3/uL (2.0-7.7); Basophil# 0.02 X10^3/uL; Basophil% 0.2 % (0-1); Eosinophil# 0.11 X10^3/uL; Eosinophils% 1.3 % (0-5); Hematocrit 40.3 % (40-54); Hemoglobin 12.9 g/dL (13.0-16.5); Lymphocyte # 1.69 X10^3/ul (4.0); Mean Corpuscular Hgb 31.2 pg (27.0-32.0); Mean Corpuscular Volume 97.6 fL (80-94); Mean Platelet Vol. 10.4 fl (6.2-12.0); Monocyte# 0.94 X10^3/uL; Monocyte% 11.1 % (0-10); NRBC Flagged by Analyzer 0 % (0-5); Neutrophil # 5.68 X10^3/uL (2.7-7.7); Neutrophil % 67.2 % (47-70); Platelet Count 148 K/mm3 (150-450); RBC Distribution Width CV 13.7 % (11.6-14.6); RBC Distribution Width SD 49.2 fl (35.1-43.9); Red Blood Count 4.13 M/mm3 (4.6-6.2); White Blood Count 8.5 K/mm3 (4.4-11.0)
[2020-06-06 20:55] LABS: Anion Gap 6 (5-15); BUN 16 mg/dL (7-18); Calcium,Total 9.2 mg/dL (8.5-10.1); Chloride 103 mmol/L (98-107); Creatinine, Serum 0.84 mg/dL (0.70-1.30); EST Glomerular Filtration Rate 92 mL/min (>60); Est Glom Filt Rate - Afr Amer 112 mL/min (>60); Estimated Creatinine Clearance 73.13 ml/min; Glucose 97 mg/dL (74-106); Potassium 4.3 mmol/L (3.5-5.1); Sodium Level 138 mmol/L (136-145)
--- NOTE | 2020-06-06 21:10 | PCM.HP.STD ---
Problem List (1) Fall Status: Acute (2) Multiple fractures Status: Acute (3) Nonrheumatic aortic valve stenosis Status: Chronic (4) Essential hypertension Status: Chronic (5) Atherosclerosis of coronary artery of [place] heart without angina pectoris Status: Chronic Qualifiers: Coronary Disease-Associated Artery/Lesion type: [place] artery Qualified Code(s): I25.10 - Atherosclerotic heart disease of [place] coronary artery without angina pectoris Comment: 2.75 x 15 mm Promus to mid LAD, 3.0 x 12 mm Promus to proximal LAD 08/14/10; 2.5 x 8 mm Xience Alpine FIDEL to mid LAD 11/15/16 (6) Presence of stent in coronary artery Status: Chronic Comment: 2.75 x 15 mm Promus to mid LAD, 3.0 x 12 mm Promus to proximal LAD 08/14/10; 2.5 x 8 mm Xience Alpine FIDEL to mid LAD 11/15/16 (7) Primary biliary cirrhosis Status: Chronic (8) 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 At baseline patient has balance issues. She uses a cane to walk. He thinks that he had a mechanical fall. He landed on his face with his fall. He sustained injury at his face. He had bilateral wrist pain. Also he sustained injury on his left knee. X-ray showed bilateral wrist fractures. Knee x-ray showed a fracture of left patella facet and large joint effusion. Emergency department doctor reported discussing the case with orthopedic surgeon who recommended left knee immobilizer and weightbearing as tolerated. Also splint to bilateral wrist was recommended. Past Medical History Past Medical History (Chronic Problems): Chronic Problems (Last Reviewed 06/07/20 @ 04:[address] Jeff Giron MD) Nonrheumatic aortic valve stenosis (Chronic) Essential hypertension (Chronic) Atherosclerosis of coronary artery of [place] heart without angina pectoris (Chronic) 2.75 x 15 mm Promus to mid LAD, 3.0 x 12 mm Promus to proximal LAD 08/14/10; 2.5 x 8 mm Xience Alpine FIDEL to mid LAD 11/15/16 Presence of stent in coronary artery (Chronic) 2.75 x 15 mm Promus to mid LAD, 3.0 x 12 mm Promus to proximal LAD 08/14/10; 2.5 x 8 mm Xience Alpine FIDEL to mid LAD 11/15/16 Primary biliary cirrhosis (Chronic) Cholelithiasis without obstruction (Chronic) Hyperlipidemia (Chronic) Medical History: Medical History (Last Reviewed 06/07/20 @ 04:[address] Jeff Giron MD) Nonrheumatic aortic valve stenosis (Chronic) I35.0 Essential hypertension (Chronic) I10 Atherosclerosis of coronary artery of [place] heart without angina pectoris (Chronic) I25.10 2.75 x 15 mm Promus to mid LAD, 3.0 x 12 mm Promus to proximal LAD 08/14/10; 2.5 x 8 mm Xience Alpine FIDEL to mid LAD 11/15/16 Primary biliary cirrhosis (Chronic) K74.3 Cholelithiasis without obstruction (Chronic) K80.20 Hyperlipidemia (Chronic) E78.5 Asthma J45.909 BPH (benign prostatic hyperplasia) N40.0 Bradycardia R00.1 Glaucoma H40.9 Osteoarthritis M19.90 Psoriasis L40.9 Thrombocytopenia D69.6 Allergies metoprolol [From Lopressor] Allergy (Intermediate, Verified 06/06/20 17:42) Shortness of breath Penicillins Allergy (Verified 06/06/20 17:42) Rash Home Medications: Ambulatory Orders Medication Instructions Recorded Aspirin E.C. [Ecotrin] 81 mg PO DAILY@0800 12/06/16 Ursodiol [Huey] 500 mg PO BIDCM 12/06/16 albuterol sulfate 90 mcg/actuation 2 puff INHALATION Q4H PRN g 05/25/19 aerosol inhaler baclofen 10 mg tablet 10 mg PO TID PRN 05/25/19 finasteride 5 mg tablet 5 mg PO DAILY 05/25/19 multivitamin 1 tab PO BIDCM 05/25/19 nitroglycerin 0.4 mg sublingual 0.4 mg SUBLINGUAL Q5-15M PRN 05/25/19 tablet Brimonidine Tartrate [Alphagan P] 1 drp EACH EYE BID 06/02/19 Travoprost 0.004% [Travatan-Z 1 drp EACH EYE QHS 06/02/19 0.004% Eye Drop] magnesium oxide 500 mg tablet 1,500 mg PO QHS tab 06/27/19 cetirizine 10 mg capsule 10 mg PO DAILY PRN 08/29/19 ezetimibe 10 mg tablet 10 mg PO DAILY #90 tab 09/03/19 atorvastatin 20 mg tablet 20 mg PO QHS #90 tab 10/23/19 clopidogrel 75 mg tablet 75 mg PO DAILY #90 tab 10/23/19 lisinopril 2.5 mg tablet 2.5 mg PO QHS #90 tab 11/06/19 clobetasol 0.05 % scalp solution 1 applic TOPICAL DAILY PRN 01/28/20 Netarsudil Mesylate [Rhopressa] 1 drp OP DAILY 06/06/20 Surgical History: Surgical History (Last Reviewed 06/07/20 @ 04:[address] Jeff Giron MD) Presence of stent in coronary artery (Chronic) Z95.5 2.75 x 15 mm Promus to mid LAD, 3.0 x 12 mm Promus to proximal LAD 08/14/10; 2.5 x 8 mm Xience Alpine FIDEL to mid LAD 11/15/16 History of appendectomy Z90.49 History of cataract extraction Z98.49 History of partial colectomy Onset Date: ~2003 Z90.49 Surgical History: appendectomy, colectomy - 12 section of colon removed. , tonsillectomy - as infant/child, - - calcification of kidney and gall stones. Smoking Status: Never smoker - *Family History Maternal Family History: Family History (Last Reviewed 06/07/20 @ 04:[address] Jeff Giron MD) Father Hypertension Grandmother Hypertension Review of Systems Constitutional: Denies: Chills, Fever, Weight Change HEENT: Denies: Head Aches, Sinus Congestion, Sinus Drainage Cardiovascular: Denies: Chest Pain, Palpitations Respiratory: Denies: Cough, Shortness of breath at rest, Sputum production Gastrointestinal: Denies: Abdominal Pain, Nausea, Vomiting Genitourinary: Denies: Dysuria Musculoskeletal: Reports: Joint Pain - Bilateral wrists, Joint Tenderness - Bilateral wrist Skin: Reports: - - Abrasions to face.. Denies: Rash, Wounds Neurological: Denies: Numbness, Tingling, Focal weakness Psychiatric: Denies: Anxiety, Depression, Homicidal Ideations, Suicidal Ideations Hematologic/ Lymphatic: Denies: Easy Bruising, Easy Bleeding VTE Information - Inpt Only VTE Present on Admission: No VTE Mechan Device Prophylaxis: SCD's VTE Pharm Prophylaxis ordered?: No Patient Problems: Active and Suspected Problems (Last Reviewed 06/07/20 @ 04:[address] Jeff Giron MD) Fall (Acute) Multiple fractures (Acute) - Physical Exam Vitals/I&O's: Vital Signs Temp Pulse Resp BP Pulse Ox 96.8 F L 63 18 150/76 H 99 06/06/20 17:40 06/06/20 17:40 06/06/20 17:40 06/06/20 17:40 06/06/20 17:40 Oxygen Delivery Method Room Air Weight: 108.862 kg Body Mass Index (BMI) 32.5 General: Alert, Oriented x3, Cooperative HEENT: PERRLA, EOMI, Normocephalic, - - abrasions to nasal bridge and philtrum Neck: Supple, No JVD, Negative Carotid Bruits Lungs: Rhonchi, Wheezes Cardiovascular: Regular rate, Regular Rhythm, Normal S1, Normal S2, No murmurs Abdomen: Bowel Sounds Present, Soft, Non Tender Extremities: Capillary Refill Less than 3 Seconds, Edema - Left knee; bilateral wrists., Tenderness - Bilateral wrists Skin: - - Ecchymosis to left knee and abrasions to face. Musculoskeletal: Tenderness - Bilateral wrists Neurological: Cranial nerves II-XII grossly intact Psych/Mental Status: Normal Affect, Appropriate Laboratory Results 06/06/20 20:15: WBC 8.5, RBC 4.13 L, Hgb 12.9 L, Hct 40.3, MCV 97.6 H, MCH 31.2, MCHC 32.0, RDW Std Deviation 49.2 H, RDW Coeff of Angelia 13.7, Plt Count 148 L, MPV 10.4, Immature Gran % (Auto) 0.200, Neut % (Auto) 67.2, Lymph % (Auto) 20.0, [place] % (Auto) 11.1 H, Eos % (Auto) 1.3, Baso % (Auto) 0.2, Absolute Neuts (auto) 5.7, Absolute Lymphs (auto) 1.69, Nucleated RBC % 0 06/06/20 20:15: Sodium 138, Potassium 4.3, Chloride 103, Carbon Dioxide 29.0, Anion Gap 6, BUN 16, Creatinine 0.84, Estim Creat Clear Calc 73.13, Est GFR (MDRD) Af Amer 112, Est GFR (MDRD) Non-Af 92, BUN/Creatinine Ratio 19.0, Glucose 97, Calcium 9.2 Assessment/Plan All Active Problems (Last Reviewed 06/07/20 @ 04:[address] Jeff Giron MD) Fall (Acute) Multiple fractures (Acute) The patient is a 85 year old M with a significant history of asthma; hyperlipidemia; primary biliary cirrhosis who presents emergency department with a fall; and found to have bilateral wrist fracture; left patella fracture and fracture of nasal bone. Fall/acute nondisplaced fracture of left patella facet and large joint effusion; left-sided nasal bone acute fracture/bilateral triquetral wrist fracture. PT and OT to work with patient for balance training and strengthening. Patient to have bilateral wrist splint and left knees splint at emergency department PRN oxycodone for pain. Bowel protocol and antiemetics in place. Received diphtheria/tetanus/Acellular Pertussis immunization at the emergency department. Hold aspirin and Plavix for now. Check vitamin D and vitamin B12 level. Weightbearing as tolerated on left lower extremity per orthopedic recommendations. CAD status post stent: Of note patient had his first stent in 2009; and in 2016 he had 2 more stents. Dual antiplatelet therapy held secondary to acute fractures. Consider resuming when appropriate. DVT prophylaxis SCD. OBSV E&M: 62081 Initial observation care L3
[2020-06-06] MEDS: fentaNYL 100 MCG/2 ML Ampul 50 MCG IV (21:58)
--- NOTE | 2020-06-06 21:58 | ED.DCSUM_ITS ---
- ER Visit Summary Date of Service: 06/06/20 Chief Complaint: Fall History of Present Illness: The patient is a 85 M presenting after fall. Patient had a mechanical fall earlier today while walking. He states he tripped on his cane. He fell onto his left knee and both wrists. He hit his face. He denies loss of consciousness. He is on Plavix. He does have balance issues chronically. He tried to use a walker at home and was unable to do this secondary to his wrist pain. Denies other complaints. Physical Examination: Vitals are stable. Patient is afebrile. Alert no acute distress. HEENT exam abrasion to nose and under nose. No septal hematoma. Midface is stable. Neck is nontender Lungs are clear and equal bilaterally. Heart is regular rate and rhythm. Abdomen is soft nontender nondistended. Extremities bilateral diffuse wrist tenderness with painful range of motion. Normal pulses. Left anterior knee tenderness with effusion. Extensor mechanism intact. Normal distal pulses. Skin is warm and dry. No focal neurologic deficit. Remainder of exam is unremarkable. Emergency Department Course and Treatment: Left x-ray shows acute displaced chip fracture on the dorsal surface of the triquetrum. Right wrist x-ray shows small slightly displaced vertical fracture through the posterior/dorsal aspect of the right triquetral bone is seen on the lateral view. Left knee x-ray shows acute nondisplaced fracture of the lateral patellar facet and large joint effusion. CT head shows no acute intracranial abnormality. CT C-spine shows multilevel degenerative disc disease without acute fracture or traumatic subluxation. CT facial bones shows possible left-sided nasal bone acute fracture. CBC, chemistries unremarkable. Patient was given fentanyl IV for pain. Discussed with . She recommends bilateral Velcro wrist splint, knee immobilizer, weightbearing as tolerated. Patient may follow-up as an outpatient with orthopedics. There is concern for patient's ability to go home because he is unable to ambulate. Discussed with the hospitalist for observation. Disposition: Observation Impression: Status post mechanical fall, bilateral triquetrum fracture, left patella fracture, left sided nasal bone fracture This note was generated with [employer] dictation software. It may contain incorrect words, spelling, and punctuation that were not noted in review of the chart prior to signing ED Disposition - Plan for ED Patient: Referrals: Manuel Logan MD [Primary Care Provider] -
[2020-06-06 22:01] VITALS: BP 156/66; PULSE 61; RESP 16; TEMP 36.9; O2SAT 99
[2020-06-06 23:07] VITALS: BP 147/59; PULSE 58; RESP 18; TEMP 36.4; O2SAT 99
[2020-06-06 23:08] VITALS: BMI 31.6
[2020-06-06 23:12] VITALS: BMI 31.7
[2020-06-06] MEDS: Acetaminophen 325 MG Tablet 650 MG PO (23:48)
[2020-06-07] VITALS (7 sets, daily range): BP systolic 81–154; BP diastolic 43–72; PULSE 43–61; RESP 16–20; TEMP 36.3–36.9; O2SAT 95–100
[2020-06-07] MEDS: 0.9% Saline Lock 10 ML Syringe IV ×2 (00:09→20:42)
[2020-06-07] MEDS: oxyCODONE 5 MG Tablet PO (04:00)
--- NOTE | 2020-06-07 05:37 | PCM.PN.BLA ---
Progress Note Nurse reports systolic blood pressure in both arms of 87 and diastolic blood pressure in both arms in the 40s. Checked with machine and confirmed manually. Will give 1000 mL's normal saline bolus in 2 hours. CBC is pending. Of note echocardiogram on 06/04/2019 showed ejection fraction of 60% and normal diastolic function for age. Also a cardiac cath on 06/14/2019 showed only mild irregularity of vessels and a small vessel jailed by the stent at the [facility]. STROKE Vital Signs/Narrative: Vital Signs Temp Pulse Resp BP BP Pulse Ox 06/07/20 05:13 97.3 F L 44 L 18 81/47 L 81/43 L 95
[2020-06-07] MEDS: 0.9% Normal Saline 1,000 ML 500 ML IV (05:46)
[2020-06-07] MEDS: Ondansetron 4 MG/2 ML Vial IV (05:46)
[2020-06-07 07:14] LABS: Absolute Lymphocyte Count 1.02 X10^3/uL (0.83-4.51); Absolute Neutrophil Count 4.3 X10^3/uL (2.0-7.7); Basophil# 0.01 X10^3/uL; Basophil% 0.2 % (0-1); Eosinophil# 0.06 X10^3/uL; Hematocrit 35.9 % (40-54); Hemoglobin 11.7 g/dL (13.0-16.5); Lymphocyte # 1.02 X10^3/ul (4.0); Lymphocyte % 16.2 % (19-41); Mean Corp Hgb Conc 32.6 g/dL (32-36); Mean Corpuscular Hgb 31.5 pg (27.0-32.0); Mean Corpuscular Volume 96.5 fL (80-94); Mean Platelet Vol. 10.6 fl (6.2-12.0); Monocyte# 0.87 X10^3/uL; Monocyte% 13.8 % (0-10); NRBC Flagged by Analyzer 0 % (0-5); Neutrophil # 4.31 X10^3/uL (2.7-7.7); Neutrophil % 68.3 % (47-70); Platelet Count 133 K/mm3 (150-450); RBC Distribution Width CV 13.6 % (11.6-14.6); RBC Distribution Width SD 48.7 fl (35.1-43.9); Red Blood Count 3.72 M/mm3 (4.6-6.2); White Blood Count 6.3 K/mm3 (4.4-11.0)
[2020-06-07] MEDS: Acetaminophen 325 MG Tablet 650 MG PO ×3 (07:23→20:29)
[2020-06-07 07:37] LABS: Anion Gap 5 (5-15); BUN 14 mg/dL (7-18); BUN/Creat Ratio 20.1 RATIO (10-20); Calcium,Total 8.7 mg/dL (8.5-10.1); Chloride 101 mmol/L (98-107); EST Glomerular Filtration Rate 115 mL/min (>60); Est Glom Filt Rate - Afr Amer 139 mL/min (>60); Estimated Creatinine Clearance 61.43 ml/min; Glucose 101 mg/dL (74-106); Potassium 3.8 mmol/L (3.5-5.1); Sodium Level 135 mmol/L (136-145)
--- NOTE | 2020-06-07 08:13 | CASEMGMT ---
LW/POA forms both in summary tab of echart, pt's Marlene is listed as medical POA. HODA Olivares
[2020-06-07] MEDS: Ursodiol 250 MG Tablet 500 MG PO ×2 (08:50→16:16)
[2020-06-07] MEDS: BRIMONIDINE 0.15% 5 ML Bottle 1 DRP EACH EYE ×2 (08:50→20:31)
[2020-06-07] MEDS: Multivitamins,Therapeutic Tablet 1 TABLET PO ×2 (08:50→16:16)
[2020-06-07] MEDS: Finasteride 5 MG Tablet PO (08:52)
[2020-06-07] MEDS: Ezetimibe 10 MG Tablet PO (08:53)
--- NOTE | 2020-06-07 11:08 | CASEMGMT ---
RN CM Note: Introduced role of CM to patient and . Updated that status was changed from Observation to Inpatient status. Patient was concerned that hospital stay would not be paid. Explained that billing will be sent to insurance and would be paid according to his policy. No further questions. Patient mentioned going to [facility] or Inpatient Rehab. Updated that PT/OT evaluations would be done and social work lecturer would be in to speak with patient re: discharge needs. Madhu GUO updated. Aneta WISEN RN ACM
[2020-06-07] MEDS: oxyCODONE 5 MG Tablet 10 MG PO (11:10)
--- NOTE | 2020-06-07 12:45 | PCM.PN.HOSP ---
<Zana Bo - Last Filed: 06/07/20 12:45> Patient Problems: Active and Suspected Problems (Last Reviewed 06/07/20 @ 04:[address] Jeff Giron MD) Fall (Acute) Multiple fractures (Acute) Reason for Visit: fall and multiple fractures Subjective: Pain well controlled. no LH/dizziness. No active bleeding. No numbness or tingling in the affected extremities. Balance has been poor since prior right ankle fx repair. Vitals/I&O's: Vital Signs Temp Pulse Resp BP Pulse Ox 98.1 F 61 16 100/50 L 97 06/07/20 08:37 06/07/20 08:41 06/07/20 08:37 06/07/20 08:37 06/07/20 08:37 Oxygen Delivery Method Room Air Weight: 233 lb 7.512 oz Body Mass Index (BMI) 31.6 Intake and Output for Last 24 Hours 06/05/20 06/06/20 06/07/20 23:59 23:59 23:59 Intake Total 1500 / 1500 Output Total 600 / 600 Balance 900 / 900 General: Alert, Oriented x3, Cooperative HEENT: Atraumatic, PERRLA, EOMI, Normocephalic, - - dried blood BL nares. bruising around nose Neck: Supple, No JVD, Negative Carotid Bruits Lungs: Clear to auscultation, Normal air movement Cardiovascular: Regular rate, No murmurs Abdomen: Bowel Sounds Present, Soft, Non Tender Extremities: No edema, Capillary Refill Less than 3 Seconds Skin: No rashes, No breakdown Musculoskeletal: No Tenderness to Palpation of Joints or Extremities, - - BL hand swelling/bruising. ROM intact. Splints in place BL wrists. Knee immobilizer in place. Neurological: Cranial nerves II-XII grossly intact Psych/Mental Status: Normal Affect, Appropriate, Alert and oriented to time, place, person, mood and affect Laboratory Results 06/06/20 20:15: WBC 8.5, RBC 4.13 L, Hgb 12.9 L, Hct 40.3, MCV 97.6 H, MCH 31.2, MCHC 32.0, RDW Std Deviation 49.2 H, RDW Coeff of Angelia 13.7, Plt Count 148 L, MPV 10.4, Immature Gran % (Auto) 0.200, Neut % (Auto) 67.2, Lymph % (Auto) 20.0, [place] % (Auto) 11.1 H, Eos % (Auto) 1.3, Baso % (Auto) 0.2, Absolute Neuts (auto) 5.7, Absolute Lymphs (auto) 1.69, Nucleated RBC % 0 06/06/20 20:15: Sodium 138, Potassium 4.3, Chloride 103, Carbon Dioxide 29.0, Anion Gap 6, BUN 16, Creatinine 0.84, Estim Creat Clear Calc 73.13, Est GFR (MDRD) Af Amer 112, Est GFR (MDRD) Non-Af 92, BUN/Creatinine Ratio 19.0, Glucose 97, Calcium 9.2 06/07/20 06:40: Vitamin B12 Pending, Vitamin D 25-Hydroxy Pending 06/07/20 06:40: WBC 6.3, RBC 3.72 L, Hgb 11.7 L, Hct 35.9 L, MCV 96.5 H, MCH 31.5, MCHC 32.6, RDW Std Deviation 48.7 H, RDW Coeff of Angelia 13.6, Plt Count 133 L, MPV 10.6, Immature Gran % (Auto) 0.500, Neut % (Auto) 68.3, Lymph % (Auto) 16.2 L, [place] % (Auto) 13.8 H, Eos % (Auto) 1.0, Baso % (Auto) 0.2, Absolute Neuts (auto) 4.3, Absolute Lymphs (auto) 1.02, Nucleated RBC % 0 06/07/20 06:40: Sodium 135 L, Potassium 3.8, Chloride 101, Carbon Dioxide 29.0, Anion Gap 5, BUN 14, Creatinine 0.70, Estim Creat Clear Calc 61.43, Est GFR (MDRD) Af Amer 139, Est GFR (MDRD) Non-Af 115, BUN/Creatinine Ratio 20.1 H, Glucose 101, Calcium 8.7 Current Medications Acetaminophen (Tylenol) 650 mg PO Q6H PRN PRN PRN Reason: Pain Score 1-10/Temp > 100.7 F Last Admin: 06/07/20 07:23 Dose: 650 mg Documented by: Albuterol Sulfate (Ventolin Aerosols) 2.5 mg INHALATION Q2H PRN PRN PRN Reason: SOB/WHEEZING Atorvastatin Calcium (Lipitor) 20 mg PO QHS [facility] Baclofen (Lioresal) 10 mg PO TID PRN PRN PRN Reason: muscle spasms Brimonidine Tartrate (Alphagan P 0.15%) 1 drop EACH EYE BID [facility] Last Admin: 06/07/20 08:50 Dose: 1 drop Documented by: Ezetimibe (Zetia) 10 mg PO DAILY [facility] Last Admin: 06/07/20 08:53 Dose: 10 mg Documented by: Finasteride (Proscar) 5 mg PO DAILY [facility] Last Admin: 06/07/20 08:52 Dose: 5 mg Documented by: Latanoprost (Xalatan Opthalmic) 1 drop EACH EYE QHS [facility] Loratadine (Claritin) 10 mg PO DAILY PRN PRN PRN Reason: allergies Magnesium Chloride (Mag64) 320 mg PO QHS [facility]) [facility] Last Admin: 06/07/20 08:50 Dose: 1 tablet Documented by: Ondansetron HCl (Zofran) 4 mg IV Q8H PRN PRN PRN Reason: NAUSEA/VOMITING Last Admin: 06/07/20 05:46 Dose: 4 mg Documented by: Oxycodone HCl (Oxyir) 5 mg PO Q6H PRN PRN PRN Reason: Pain Score 4-5/10 Last Admin: 06/07/20 04:00 Dose: 5 mg Documented by: Oxycodone HCl (Oxyir) 10 mg PO Q6H PRN PRN PRN Reason: Pain Score 6-10/10 Last Admin: 06/07/20 11:10 Dose: 10 mg Documented by: Senna/Docusate Sodium (Senokot-S, Alexandra-Colace) 2 tablet PO BID PRN PRN PRN Reason: Constipation Sodium Chloride () 10 - 40 ml IV UD PRN PRN Reason: SALINE FLUSH Last Admin: 06/07/20 00:09 Dose: 10 ml Documented by: [facility]odiol (Huey) [facility] Last Admin: 06/07/20 08:50 Dose: 500 mg Documented by: Medical Necessity - Tobacco Use Smoking Status: Never smoker Assessment/Plan All Active Problems (Last Reviewed 06/07/20 @ 04:[address] Jeff Giron MD) Fall (Acute) Multiple fractures (Acute) 1. Fall, mechanical - multiple fractures - patella, BL wrists, nasal. continue current care. follow up o/p with ortho - Previously had left ankle surgery with Dr. Locke. VitD and b12 pending. PTOT evals. 2. CAD - prior stents. plavix held for nose bleed. plan to resume tomorrow. 3. HTN - low this AM, improved with IVF bolus. will trend. Hold baclofen 4. HLD - statin 5. Chronic back pain 2/2 DDD - hold baclofen with low bp. pt states he rarely uses this. DVT ppx: SCDs DC planning: PTOT evals. This patient was seen by Zana Bo PA-C under the supervision of Dr. Laguna <Miguelito Laguna F - Last Filed: 06/07/20 15:55> Vitals/I&O's: Vital Signs Temp Pulse Resp BP Pulse Ox 97.8 F 51 L 18 130/64 H 100 06/07/20 13:37 06/07/20 13:37 06/07/20 13:37 06/07/20 13:37 06/07/20 13:37 Oxygen Delivery Method Room Air Weight: 233 lb 7.512 oz Body Mass Index (BMI) 31.6 Intake and Output for Last 24 Hours 06/05/20 06/06/20 06/07/20 23:59 23:59 23:59 Intake Total 1500 / 1500 Output Total 600 / 600 Balance 900 / 900 Laboratory Results 06/06/20 20:15: WBC 8.5, RBC 4.13 L, Hgb 12.9 L, Hct 40.3, MCV 97.6 H, MCH 31.2, MCHC 32.0, RDW Std Deviation 49.2 H, RDW Coeff of Angelia 13.7, Plt Count 148 L, MPV 10.4, Immature Gran % (Auto) 0.200, Neut % (Auto) 67.2, Lymph % (Auto) 20.0, [place] % (Auto) 11.1 H, Eos % (Auto) 1.3, Baso % (Auto) 0.2, Absolute Neuts (auto) 5.7, Absolute Lymphs (auto) 1.69, Nucleated RBC % 0 06/06/20 20:15: Sodium 138, Potassium 4.3, Chloride 103, Carbon Dioxide 29.0, Anion Gap 6, BUN 16, Creatinine 0.84, Estim Creat Clear Calc 73.13, Est GFR (MDRD) Af Amer 112, Est GFR (MDRD) Non-Af 92, BUN/Creatinine Ratio 19.0, Glucose 97, Calcium 9.2 06/07/20 06:40: Vitamin B12 Pending, Vitamin D 25-Hydroxy Pending 06/07/20 06:40: WBC 6.3, RBC 3.72 L, Hgb 11.7 L, Hct 35.9 L, MCV 96.5 H, MCH 31.5, MCHC 32.6, RDW Std Deviation 48.7 H, RDW Coeff of Angelia 13.6, Plt Count 133 L, MPV 10.6, Immature Gran % (Auto) 0.500, Neut % (Auto) 68.3, Lymph % (Auto) 16.2 L, [place] % (Auto) 13.8 H, Eos % (Auto) 1.0, Baso % (Auto) 0.2, Absolute Neuts (auto) 4.3, Absolute Lymphs (auto) 1.02, Nucleated RBC % 0 06/07/20 06:40: Sodium 135 L, Potassium 3.8, Chloride 101, Carbon Dioxide 29.0, Anion Gap 5, BUN 14, Creatinine 0.70, Estim Creat Clear Calc 61.43, Est GFR (MDRD) Af Amer 139, Est GFR (MDRD) Non-Af 115, BUN/Creatinine Ratio 20.1 H, Glucose 101, Calcium 8.7 Current Medications Acetaminophen (Tylenol) 650 mg PO Q6H PRN PRN PRN Reason: Pain Score 1-10/Temp > 100.7 F Last Admin: 06/07/20 13:34 Dose: 650 mg Documented by: Albuterol Sulfate (Ventolin Aerosols) 2.5 mg INHALATION Q2H PRN PRN PRN Reason: SOB/WHEEZING Atorvastatin Calcium (Lipitor) 20 mg PO QHS [facility] Brimonidine Tartrate (Alphagan P 0.15%) 1 drop EACH EYE BID [facility] Last Admin: 06/07/20 08:50 Dose: 1 drop Documented by: Ezetimibe (Zetia) 10 mg PO DAILY [facility] Last Admin: 06/07/20 08:53 Dose: 10 mg Documented by: Finasteride (Proscar) 5 mg PO DAILY [facility] Last Admin: 06/07/20 08:52 Dose: 5 mg Documented by: Latanoprost (Xalatan Opthalmic) 1 drop EACH EYE QHS [facility] Loratadine (Claritin) 10 mg PO DAILY PRN PRN PRN Reason: allergies Magnesium Chloride (Mag64) 320 mg PO QHS [facility] Multivitamins ([facility]itamin) [facility] Last Admin: 06/07/20 08:50 Dose: 1 tablet Documented by: Ondansetron HCl (Zofran) 4 mg IV Q8H PRN PRN PRN Reason: NAUSEA/VOMITING Last Admin: 06/07/20 05:46 Dose: 4 mg Documented by: Oxycodone HCl (Oxyir) 5 mg PO Q6H PRN PRN PRN Reason: Pain Score 4-5/10 Last Admin: 06/07/20 04:00 Dose: 5 mg Documented by: Oxycodone HCl (Oxyir) 10 mg PO Q6H PRN PRN PRN Reason: Pain Score 6-10/10 Last Admin: 06/07/20 11:10 Dose: 10 mg Documented by: Senna/Docusate Sodium (Senokot-S, Alexandra-Colace) 2 tablet PO BID PRN PRN PRN Reason: Constipation Sodium Chloride () 10 - 40 ml IV UD PRN PRN Reason: SALINE FLUSH Last Admin: 06/07/20 00:09 Dose: 10 ml Documented by: Ursodiol (Huey) [facility] Last Admin: 06/07/20 08:50 Dose: 500 mg Documented by: STROKE Vital Signs/Narrative: Vital Signs Temp Pulse Resp BP Pulse Ox 06/07/20 13:37 97.8 F 51 L 18 130/64 H 100 Addendum: Dr. Laguna I personally examined the patient and reviewed the chart. I agree with the above. 85-year-old male presenting to the hospital after a mechanical fall. It sounds like he was walking with his cane when he tripped and fell forward onto his knees. He looks like his hands were extended out to break his fall and he has bilateral triquetral fractures as well as a patellar fracture all of which are nondisplaced. This was discussed with orthopedic surgery who felt that these were nonoperative. He is currently in a knee brace as well as bilateral wrist braces. Because of this he will need to have placement in nursing home facility for rehab. He denies any lightheadedness or dizziness or any arrhythmia that caused the fall. Inpatient E&M: 52727 Subs Hosp L2
--- NOTE | 2020-06-07 13:37 | CASEMGMT ---
SW met w/pt and in room in regard to prior level of care, discharge plan. PCP: Dr. Manuel Logan Specialists: [facility] Insurance: [employer] Pharmacy: [facility] in [place] LNOK: Pt lives with in one story home Prior level of care: Pt independent with most ADL's, does use a cane and states has balance issues. Pt's drives, cooks, cleans. Pt organizes his own medication. DME: Pt broke his ankle in November and has wheelchair, rollator, raise toilet seat, shower seat, cane HHC: Pt had [facility] after his ankle surgery. He has also utilized [facility]. Plan: SW reviewed options w/pt and and provided list of nursing homes with star ratings that take pt's insurance, as well as inpt rehab. Pt would like to go to inpt rehab or TCU. Pt states if insurance will not cover rehab he may even consider private paying. BRANT explained will make referrals and BRANT will follow up on Tuesday. BRANT spoke w/Jane in rehab and let her know pt would like to go to rehab, we can look at precert Tuesday. BRANT asked Jane to follow up w/BRANT on Tuesday. BRANT left Vane in TCU a message and let her know we are looking at rehab for this pt, if insurance won't cover, possibly TCU, and to follow up Tuesday. Plan: Rehab vs TCU pending precert and bed availability. HODA Olivares
[2020-06-07] MEDS: Atorvastatin Calcium 20 MG Tablet PO (20:30)
[2020-06-07] MEDS: Senna/Docusate Sodium 1 Tablet 2 TABLET PO (20:30)
[2020-06-07] MEDS: Latanoprost 0.005% 1 Bottle 1 DRP EACH EYE (20:31)
[2020-06-08] VITALS (7 sets, daily range): BP systolic 121–150; BP diastolic 64–75; PULSE 54–70; RESP 16–20; TEMP 36.6–37.1; O2SAT 95–99
[2020-06-08] MEDS: Acetaminophen 325 MG Tablet 650 MG PO ×3 (02:41→23:22)
[2020-06-08] MEDS: Albuterol 2.5 MG/3 ML VIAL.NEB. INHALATION (03:11)
[2020-06-08 04:53] LABS: Hematocrit 36.9 % (40-54); Mean Corp Hgb Conc 32.5 g/dL (32-36); Mean Corpuscular Hgb 31.5 pg (27.0-32.0); Mean Corpuscular Volume 96.9 fL (80-94); Mean Platelet Vol. 10.6 fl (6.2-12.0); Platelet Count 125 K/mm3 (150-450); RBC Distribution Width CV 13.9 % (11.6-14.6); RBC Distribution Width SD 49.4 fl (35.1-43.9); Red Blood Count 3.81 M/mm3 (4.6-6.2); White Blood Count 7.6 K/mm3 (4.4-11.0)
[2020-06-08] MEDS: Ursodiol 250 MG Tablet 500 MG PO ×2 (08:08→16:36)
[2020-06-08] MEDS: Multivitamins,Therapeutic Tablet 1 TABLET PO ×2 (08:08→16:36)
[2020-06-08] MEDS: BRIMONIDINE 0.15% 5 ML Bottle 1 DRP EACH EYE ×2 (09:25→20:44)
[2020-06-08] MEDS: Finasteride 5 MG Tablet PO (09:26)
[2020-06-08] MEDS: Ezetimibe 10 MG Tablet PO (09:27)
--- NOTE | 2020-06-08 10:48 | PCM.PN.HOSP ---
<Zana Bo - Last Filed: 06/08/20 10:48> Patient Problems: Active and Suspected Problems (Last Reviewed 06/07/20 @ 04:[address] Jeff Giron MD) Fall (Acute) Multiple fractures (Acute) Reason for Visit: fall, fractures Subjective: Pain and swelling improved BL wrists. tolerating weight bearing on knee. No further bleeding since admission. Vitals/I&O's: Vital Signs Temp Pulse Resp BP Pulse Ox 97.9 F 58 L 16 139/71 H 96 06/08/20 07:56 06/08/20 07:56 06/08/20 07:56 06/08/20 07:56 06/08/20 07:56 Oxygen Delivery Method Room Air Weight: 233 lb 7.512 oz Body Mass Index (BMI) 31.6 Intake and Output for Last 24 Hours 06/06/20 06/07/20 06/08/20 23:59 23:59 23:59 Intake Total 1500 / 2300 800 / 800 Output Total 1450 / 2350 900 / 900 Balance 50 / -50 -100 / -100 General: Alert, Oriented x3, Cooperative HEENT: Atraumatic, PERRLA, EOMI, Normocephalic Neck: Supple, No JVD, Negative Carotid Bruits Lungs: Clear to auscultation, Normal air movement Cardiovascular: Regular rate, No murmurs Abdomen: Bowel Sounds Present, Soft, Non Tender Extremities: No edema, Capillary Refill Less than 3 Seconds Skin: No rashes, No breakdown Musculoskeletal: No Tenderness to Palpation of Joints or Extremities Neurological: Cranial nerves II-XII grossly intact Psych/Mental Status: Normal Affect, Appropriate, Alert and oriented to time, place, person, mood and affect Laboratory Results 06/08/20 04:10: WBC 7.6, RBC 3.81 L, Hgb 12.0 L, Hct 36.9 L, MCV 96.9 H, MCH 31.5, MCHC 32.5, RDW Std Deviation 49.4 H, RDW Coeff of Angelia 13.9, Plt Count 125 L, MPV 10.6 Current Medications Acetaminophen (Tylenol) 650 mg PO Q6H PRN PRN PRN Reason: Pain Score 1-10/Temp > 100.7 F Last Admin: 06/08/20 09:30 Dose: 650 mg Documented by: Albuterol Sulfate (Ventolin Aerosols) 2.5 mg INHALATION Q2H PRN PRN PRN Reason: SOB/WHEEZING Last Admin: 06/08/20 03:11 Dose: 2.5 mg Documented by: Atorvastatin Calcium (Lipitor) 20 mg PO QHS [facility] Last Admin: 06/07/20 20:30 Dose: 20 mg Documented by: Brimonidine Tartrate (Alphagan P 0.15%) 1 drop EACH EYE BID [facility] Last Admin: 06/08/20 09:25 Dose: 1 drop Documented by: Ezetimibe (Zetia) 10 mg PO DAILY [facility] Last Admin: 06/08/20 09:27 Dose: 10 mg Documented by: Finasteride (Proscar) 5 mg PO DAILY [facility] Last Admin: 06/08/20 09:26 Dose: 5 mg Documented by: Latanoprost (Xalatan Opthalmic) 1 drop EACH EYE QHS [facility] Last Admin: 06/07/20 20:31 Dose: 1 drop Documented by: Lisinopril (Zestril) 2.5 mg PO DAILY [facility] Loratadine (Claritin) 10 mg PO DAILY PRN PRN PRN Reason: allergies Magn[facility] (Mag[facility]) [facility] Last Admin: 06/07/20 21:00 Dose: Not Given Documented by: Multivit[facility]itamin) [address] [facility] Last Admin: 06/08/20 08:08 Dose: 1 tablet Documented by: Ondansetron HCl (Zofran) 4 mg IV Q8H PRN PRN PRN Reason: NAUSEA/VOMITING Last Admin: 06/07/20 05:46 Dose: 4 mg Documented by: Oxycodone HCl (Oxyir) 5 mg PO Q6H PRN PRN PRN Reason: Pain Score 4-5/10 Last Admin: 06/07/20 04:00 Dose: 5 mg Documented by: Oxycodone HCl (Oxyir) 10 mg PO Q6H PRN PRN PRN Reason: Pain Score 6-10/10 Last Admin: 06/07/20 11:10 Dose: 10 mg Documented by: Senna/Docusate Sodium (Senokot-S, Alexandra-Colace) 2 tablet PO BID PRN PRN PRN Reason: Constipation Last Admin: 06/07/20 20:30 Dose: 2 tablet Documented by: Sodium Chloride () 10 - 40 ml IV UD PRN PRN Reason: SALINE FLUSH Last Admin: 06/07/20 20:42 Dose: 10 ml Documented by: Ursodiol (Huey) 500 mg PO BIDCM [facility] Last Admin: 06/08/20 08:08 Dose: 500 mg Documented by: STROKE Vital Signs/Narrative: Vital Signs Temp Pulse Resp BP Pulse Ox 06/08/20 07:56 97.9 F 58 L 16 139/71 H 96 Medical Necessity - Tobacco Use Smoking Status: Never smoker Assessment/Plan All Active Problems (Last Reviewed 06/07/20 @ 04:[address] Jeff Giron MD) Fall (Acute) Multiple fractures (Acute) 1. Fall, mechanical - multiple fractures - patella, BL wrists, nasal. continue current care. follow up o/p with ortho - Previously had left ankle surgery with Dr. Locke. VitD and b12 pending. PTOT evals. Doing well with improved pain and tolerance of weight bearing. 2. CAD - prior stents. plavix held for nose bleed. plan to resume tomorrow. 3. HTN - no further hypotension, resume lisinopril today. 4. HLD - statin 5. Chronic back pain 2/2 DDD - hold baclofen with low bp. pt states he rarely uses this. 6. Thrombocytopenia - will hold plavix 1 more day and trend platelets. DVT ppx: SCDs DC planning: Inpatient rehab possibly tomorrow. This patient was seen by Zana Bo PA-C under the supervision of Dr. Laguna <Miguelito Laguna F - Last Filed: 06/08/20 13:15> Vitals/I&O's: Vital Signs Temp Pulse Resp BP Pulse Ox 97.9 F 58 L 16 139/71 H 96 06/08/20 07:56 06/08/20 07:56 06/08/20 07:56 06/08/20 07:56 06/08/20 07:56 Oxygen Delivery Method Room Air Weight: 233 lb 7.512 oz Body Mass Index (BMI) 31.6 Intake and Output for Last 24 Hours 06/06/20 06/07/20 06/08/20 23:59 23:59 23:59 Intake Total 1500 / 2300 800 / 800 Output Total 1450 / 2350 900 / 900 Balance 50 / -50 -100 / -100 Laboratory Results 06/08/20 04:10: WBC 7.6, RBC 3.81 L, Hgb 12.0 L, Hct 36.9 L, MCV 96.9 H, MCH 31.5, MCHC 32.5, RDW Std Deviation 49.4 H, RDW Coeff of Angelia 13.9, Plt Count 125 L, MPV 10.6 Current Medications Acetaminophen (Tylenol) 650 mg PO Q6H PRN PRN PRN Reason: Pain Score 1-10/Temp > 100.7 F Last Admin: 06/08/20 09:30 Dose: 650 mg Documented by: Albuterol Sulfate (Ventolin Aerosols) 2.5 mg INHALATION Q2H PRN PRN PRN Reason: SOB/WHEEZING Last Admin: 06/08/20 03:11 Dose: 2.5 mg Documented by: Atorvastatin Calcium (Lipitor) 20 mg PO QHS [facility] Last Admin: 06/07/20 20:30 Dose: 20 mg Documented by: Brimonidine Tartrate (Alphagan P 0.15%) 1 drop EACH EYE BID [facility] Last Admin: 06/08/20 09:25 Dose: 1 drop Documented by: Ezetimibe (Zetia) 10 mg PO DAILY [facility] Last Admin: 06/08/20 09:27 Dose: 10 mg Documented by: Finasteride (Proscar) 5 mg PO DAILY [facility] Last Admin: 06/08/20 09:26 Dose: 5 mg Documented by: Latanoprost (Xalatan Opthalmic) 1 drop EACH EYE QHS [facility] Last Admin: 06/07/20 20:31 Dose: 1 drop Documented by: Lisinopril (Zestril) 2.5 mg PO DAILY@2200 [facility] Loratadine (Claritin) 10 mg PO DAILY PRN PRN PRN Reason: allergies Magnesium Chloride (Mag64) [facility] Last Admin: 06/07/20 21:00 Dose: Not Given Documented by: Multivitamins ([facility]ivitamin) [address] [facility] Last Admin: 06/08/20 08:08 Dose: 1 tablet Documented by: Ondansetron HCl (Zofran) 4 mg IV Q8H PRN PRN PRN Reason: NAUSEA/VOMITING Last Admin: 06/07/20 05:46 Dose: 4 mg Documented by: Oxycodone HCl (Oxyir) 5 mg PO Q6H PRN PRN PRN Reason: Pain Score 4-5/10 Last Admin: 06/07/20 04:00 Dose: 5 mg Documented by: Oxycodone HCl (Oxyir) 10 mg PO Q6H PRN PRN PRN Reason: Pain Score 6-10/10 Last Admin: 06/07/20 11:10 Dose: 10 mg Documented by: Senna/Docusate Sodium (Senokot-S, Alexandra-Colace) 2 tablet PO BID PRN PRN PRN Reason: Constipation Last Admin: 06/07/20 20:30 Dose: 2 tablet Documented by: Sodium Chloride () 10 - 40 ml IV UD PRN PRN Reason: SALINE FLUSH Last Admin: 06/07/20 20:42 Dose: 10 ml Documented by: Ursodiol (Huey) 500 mg PO BIDCM [facility] Last Admin: 06/08/20 08:08 Dose: 500 mg Documented by: Addendum: Dr. Laguna I personally examined the patient and reviewed the chart. I agree with the above. 85-year-old male presenting to the hospital after a mechanical fall. It sounds like he was walking with his cane when he tripped and fell forward onto his knees. He looks like his hands were extended out to break his fall and he has bilateral triquetral fractures as well as a patellar fracture all of which are nondisplaced. This was discussed with orthopedic surgery who felt that these were nonoperative. He is currently in a knee brace as well as bilateral wrist braces. Because of this he will need to have placement in detention facility for [facility]hab. He denies any lightheadedness or dizziness or any arrhythmia that caused the fall. 06/08/2020: Doing well today, knee pain and left wrist pain are better. He still has little bit of swelling on the right hand basis that even the pain is better today. His bleeding has stopped therefore can plan to restart his antiplatelet medication prior to discharge. He does have thrombocytopenia which does appear to be chronic, will continue to monitor. Inpatient E&M: 75802 Subs Hosp L2
[2020-06-08] MEDS: 0.9% Saline Lock 10 ML Syringe IV (20:44)
[2020-06-08] MEDS: Latanoprost 0.005% 1 Bottle 1 DRP EACH EYE (20:45)
[2020-06-08] MEDS: Atorvastatin Calcium 20 MG Tablet PO (20:45)
[2020-06-08] MEDS: Lisinopril 2.5 MG Tablet PO (20:45)
[2020-06-09 05:15] VITALS: BP 136/75; PULSE 57; RESP 18; TEMP 36.1; O2SAT 98
[2020-06-09 05:52] LABS: Absolute Lymphocyte Count 2.09 X10^3/uL (0.83-4.51); Absolute Neutrophil Count 3.8 X10^3/uL (2.0-7.7); Basophil# 0.03 X10^3/uL; Basophil% 0.4 % (0-1); Eosinophil# 0.29 X10^3/uL; Hematocrit 37.2 % (40-54); Hemoglobin 11.9 g/dL (13.0-16.5); Lymphocyte # 2.09 X10^3/ul (4.0); Mean Corpuscular Hgb 31.4 pg (27.0-32.0); Mean Corpuscular Volume 98.2 fL (80-94); Mean Platelet Vol. 10.9 fl (6.2-12.0); Monocyte% 13.9 % (0-10); NRBC Flagged by Analyzer 0 % (0-5); Neutrophil # 3.78 X10^3/uL (2.7-7.7); Neutrophil % 52.4 % (47-70); Platelet Count 128 K/mm3 (150-450); RBC Distribution Width CV 13.9 % (11.6-14.6); RBC Distribution Width SD 50.6 fl (35.1-43.9); Red Blood Count 3.79 M/mm3 (4.6-6.2); White Blood Count 7.2 K/mm3 (4.4-11.0)
[2020-06-09 08:04] LABS: Vitamin B12 476 pg/mL (211-911); Vitamin D,25 Hydroxy 51.3 ng/mL
--- NOTE | 2020-06-09 09:19 | CASEMGMT ---
Social Work Note Pt is interested in [facility]. SW spoke with Tesha in [facility]. Tesha will submit for pre-cert. Plan: [facility] pending pre-cert Delaney Chambers AIRLINE STEWARDESS, SOFTWARE APPLICATIONS ENGINEER
[2020-06-09 11:12] VITALS: BP 142/66; PULSE 62; RESP 18; TEMP 36.7; O2SAT 100
[2020-06-09] MEDS: Ursodiol 250 MG Tablet 500 MG PO ×2 (11:14→15:52)
[2020-06-09] MEDS: Multivitamins,Therapeutic Tablet 1 TABLET PO ×2 (11:14→15:52)
[2020-06-09] MEDS: Ezetimibe 10 MG Tablet PO (11:15)
[2020-06-09] MEDS: BRIMONIDINE 0.15% 5 ML Bottle 1 DRP EACH EYE (11:15)
[2020-06-09] MEDS: Finasteride 5 MG Tablet PO (11:16)
[2020-06-09] MEDS: Clopidogrel Bisulfate 75 MG Tablet PO (11:18)
--- NOTE | 2020-06-09 11:51 | CASEMGMT ---
Addendum entered by Delaney Chambers 06/09/20 14:08: SW received message from Tesha in [facility] stating pre-cert is still pending. Original Note: Social Work Note SW in to speak with pt and pt's Marlene present in room. SW updated pt and Marlene that plan is [facility] pending pre-cert. SW explained pre-cert process. Pt and Marlene state understanding. Plan: [facility] pending pre-cert Delaney Chambers TRAVEL MONEY ADVISOR, SUPERVISOR CELL OPERATION
--- NOTE | 2020-06-09 12:09 | CASEMGMT ---
CRISTY CM in to review JAMES form with patient. JAMES form explained to patient and patient voiced understanding. Patient signed JAMES form. Original form filed in chart and copy provided to patient. Patient voiced no further questions or concerns at this time.
--- NOTE | 2020-06-09 12:42 | PCM.PN.HOSP ---
<Zana Bo - Last Filed: 06/09/20 12:42> Patient Problems: Active and Suspected Problems (Last Reviewed 06/07/20 @ 04:[address] Jeff Giron MD) Fall (Acute) Multiple fractures (Acute) Reason for Visit: Fall, fractures Subjective: Swelling and pain continues to improve. pt ambulating. no fever/chills. No bleeding. No cough/sob. No nausea/vomiting/diarrhea. Vitals/I&O's: Vital Signs Temp Pulse Resp BP Pulse Ox 98.0 F 62 18 142/66 H 100 06/09/20 11:12 06/09/20 11:12 06/09/20 11:12 06/09/20 11:12 06/09/20 11:12 Oxygen Delivery Method Room Air Weight: 233 lb 7.512 oz Body Mass Index (BMI) 31.6 Intake and Output for Last 24 Hours 06/07/20 06/08/20 06/09/20 23:59 23:59 23:59 Intake Total 1500 / 2300 1850 / 1850 1100 / 1100 Output Total 1450 / 2350 1125 / 1125 400 / 400 Balance 50 / -50 725 / 725 700 / 700 General: Alert, Oriented x3, Cooperative HEENT: Atraumatic, PERRLA, EOMI, Normocephalic Neck: Supple, No JVD, Negative Carotid Bruits Lungs: Clear to auscultation, Normal air movement Cardiovascular: Regular rate, No murmurs Abdomen: Bowel Sounds Present, Soft, Non Tender Extremities: No edema, Capillary Refill Less than 3 Seconds Skin: No rashes, No breakdown Musculoskeletal: No Tenderness to Palpation of Joints or Extremities Neurological: Cranial nerves II-XII grossly intact Psych/Mental Status: Normal Affect, Appropriate, Alert and oriented to time, place, person, mood and affect Laboratory Results 06/07/20 06:40: Vitamin B12 476, Vitamin D 25-Hydroxy 51.3 06/09/20 05:32: WBC 7.2, RBC 3.79 L, Hgb 11.9 L, Hct 37.2 L, MCV 98.2 H, MCH 31.4, MCHC 32.0, RDW Std Deviation 50.6 H, RDW Coeff of Angelia 13.9, Plt Count 128 L, MPV 10.9, Immature Gran % (Auto) 0.300, Neut % (Auto) 52.4, Lymph % (Auto) 29.0, Coos % (Auto) 13.9 H, Eos % (Auto) 4.0, Baso % (Auto) 0.4, Absolute Neuts (auto) 3.8, Absolute Lymphs (auto) 2.09, Nucleated RBC % 0 Current Medications Acetaminophen (Tylenol) 650 mg PO Q6H PRN PRN PRN Reason: Pain Score 1-10/Temp > 100.7 F Last Admin: 06/08/20 23:22 Dose: 650 mg Documented by: Albuterol Sulfate (Ventolin Aerosols) 2.5 mg INHALATION Q2H PRN PRN PRN Reason: SOB/WHEEZING Last Admin: 06/08/20 03:11 Dose: 2.5 mg Documented by: Atorvastatin Calcium (Lipitor) 20 mg PO QHS [facility] Last Admin: 06/08/20 20:45 Dose: 20 mg Documented by: Brimonidine Tartrate (Alphagan P 0.15%) 1 drop EACH EYE BID [facility] Last Admin: 06/09/20 11:15 Dose: 1 drop Documented by: Clopidogrel Bisulfate (Plavix) 75 mg PO DAILY [facility] Last Admin: 06/09/20 11:18 Dose: 75 mg Documented by: Ezetimibe (Zetia) 10 mg PO DAILY [facility] Last Admin: 06/09/20 11:15 Dose: 10 mg Documented by: Finasteride (Proscar) 5 mg PO DAILY [facility] Last Admin: 06/09/20 11:16 Dose: 5 mg Documented by: Latanoprost (Xalatan Opthalmic) 1 drop EACH EYE QHS [facility] Last Admin: 06/08/20 20:45 Dose: 1 drop Documented by: Lisinopril (Zestril) 2.5 mg PO DAILY@2200 [facility] Last Admin: 06/08/20 20:45 Dose: 2.5 mg Documented by: Loratadine (Claritin) 10 mg PO DAILY PRN PRN PRN Reason: allergies Magnesium Chloride (Mag64) 320 mg PO QHS [facility] Last Admin: 06/08/20 19:42 Dose: Not Given Documented by: Multivitamins (Multivitamin) 1 tablet [facility] Last Admin: 06/09/20 11:14 Dose: 1 tablet Documented by: Ondansetron HCl (Zofran) 4 mg IV Q8H PRN PRN PRN Reason: NAUSEA/VOMITING Last Admin: 06/07/20 05:46 Dose: 4 mg Documented by: Oxycodone HCl (Oxyir) 5 mg PO Q6H PRN PRN PRN Reason: Pain Score 4-5/10 Last Admin: 06/07/20 04:00 Dose: 5 mg Documented by: Oxycodone HCl (Oxyir) 10 mg PO Q6H PRN PRN PRN Reason: Pain Score 6-10/10 Last Admin: 06/07/20 11:10 Dose: 10 mg Documented by: Senna/Docusate Sodium (Senokot-S, Alexandra-Colace) 2 tablet PO BID PRN PRN PRN Reason: Constipation Last Admin: 06/07/20 20:30 Dose: 2 tablet Documented by: Sodium Chloride () 10 - 40 ml IV UD PRN PRN Reason: SALINE FLUSH Last Admin: 06/08/20 20:44 Dose: 10 ml Documented by: Ursodiol (Huey) 500 mg PO BIDCM JOSE Last Admin: 06/09/20 11:14 Dose: 500 mg Documented by: STROKE Vital Signs/Narrative: Vital Signs Temp Pulse Resp BP Pulse Ox 06/09/20 11:12 98.0 F 62 18 142/66 H 100 Medical Necessity - Tobacco Use Smoking Status: Never smoker Assessment/Plan All Active Problems (Last Reviewed 06/07/20 @ 04:[address] Jeff Giron MD) Fall (Acute) Multiple fractures (Acute) 1. Fall, mechanical - multiple fractures - patella, BL wrists, nasal. continue current care. follow up o/p with ortho - Previously had left ankle surgery with Dr. Locke. VitD and b12 pending. PTOT evals. Doing well with improved pain and tolerance of weight bearing. SNF vs Acute Rehab 2. CAD - prior stents. plavix resumed. 3. HTN - no further hypotension, resume lisinopril today. 4. HLD - statin 5. Chronic back pain 2/2 DDD - stable 6. Thrombocytopenia - stable DVT ppx: SCDs DC planning: waiting for pre cert This patient was seen by Zana Bo PA-C under the supervision of Jeffrey Foley - Last Filed: 06/09/20 13:58> Reason for Visit: Multiple fracture after fall Subjective: Patient has bruising and swelling in both wrist. Left knee on immobilizer. Pain is well controlled. Patient fell on his face at home. He usually walks on a walker at home. Objective: Physical exam General: Alert, Oriented x3, Cooperative HEENT: PERRLA, EOMI, Normocephalic. Patient has bruise on the nose. Oral: No Gingival or Mucosal Lesions/ Ulcerations Neck: Supple, No JVD, Negative Carotid Bruits Lungs: Air entry diminished in bilateral lung bases. No crepitation/rhonchi Cardiovascular: Regular rate, Regular Rhythm, Normal S1, Normal S2, No murmurs Abdomen: Bowel Sounds Present, Soft, Non Tender, Non-Distended : No renal angle tenderness. No suprapubic tenderness. Extremities: No edema, Capillary Refill Less than 3 Seconds Skin: No rashes, No breakdown Musculoskeletal: Left knee immobilizer. Both restarted on the splint. Gait instability. Neurological: Cranial nerves II-XII grossly intact, Deep Tendon Reflexes 2+/4 and Symmetrical, Neuro grossly intact Psych/Mental Status: Normal Affect, Appropriate. Vitals/I&O's: Vital Signs Temp Pulse Resp BP Pulse Ox 98.0 F 62 18 142/66 H 100 06/09/20 11:12 06/09/20 11:12 06/09/20 11:12 06/09/20 11:12 06/09/20 11:12 Oxygen Delivery Method Room Air Weight: 233 lb 7.512 oz Body Mass Index (BMI) 31.6 Intake and Output for Last 24 Hours 06/07/20 06/08/20 06/09/20 23:59 23:59 23:59 Intake Total 1500 / 2300 1850 / 1850 1100 / 1100 Output Total 1450 / 2350 1125 / 1125 400 / 400 Balance 50 / -50 725 / 725 700 / 700 Laboratory Results 06/07/20 06:40: Vitamin B12 476, Vitamin D 25-Hydroxy 51.3 06/09/20 05:32: WBC 7.2, RBC 3.79 L, Hgb 11.9 L, Hct 37.2 L, MCV 98.2 H, MCH 31.4, MCHC 32.0, RDW Std Deviation 50.6 H, RDW Coeff of Angelia 13.9, Plt Count 128 L, MPV 10.9, Immature Gran % (Auto) 0.300, Neut % (Auto) 52.4, Lymph % (Auto) 29.0, Coos % (Auto) 13.9 H, Eos % (Auto) 4.0, Baso % (Auto) 0.4, Absolute Neuts (auto) 3.8, Absolute Lymphs (auto) 2.09, Nucleated RBC % 0 Current Medications Acetaminophen (Tylenol) 650 mg PO Q6H PRN PRN PRN Reason: Pain Score 1-10/Temp > 100.7 F Last Admin: 06/08/20 23:22 Dose: 650 mg Documented by: Albuterol Sulfate (Ventolin Aerosols) 2.5 mg INHALATION Q2H PRN PRN PRN Reason: SOB/WHEEZING Last Admin: 06/08/20 03:11 Dose: 2.5 mg Documented by: Atorvastatin Calcium (Lipitor) 20 mg PO QHS [facility] Last Admin: 06/08/20 20:45 Dose: 20 mg Documented by: Brimonidine Tartrate (Alphagan P 0.15%) 1 drop EACH EYE BID [facility] Last Admin: 06/09/20 11:15 Dose: 1 drop Documented by: Clopidogrel Bisulfate (Plavix) 75 mg PO DAILY [facility] Last Admin: 06/09/20 11:18 Dose: 75 mg Documented by: Ezetimibe (Zetia) 10 mg PO DAILY [facility] Last Admin: 06/09/20 11:15 Dose: 10 mg Documented by: Finasteride (Proscar) 5 mg PO DAILY [facility] Last Admin: 06/09/20 11:16 Dose: 5 mg Documented by: Latanoprost (Xalatan Opthalmic) 1 drop EACH EYE QHS [facility] Last Admin: 06/08/20 20:45 Dose: 1 drop Documented by: Lisinopril (Zestril) 2.5 mg PO DAILY@2200 [facility] Last Admin: 06/08/20 20:45 Dose: 2.5 mg Documented by: Loratadine (Claritin) 10 mg PO DAILY PRN PRN PRN Reason: allergies Magnesium Chloride (Mag64) 320 mg PO QHS [facility] Last Admin: 06/08/20 19:42 Dose: Not Given Documented by: Multivitamins (Multivitamin) 1 tablet [facility] Last Admin: 06/09/20 11:14 Dose: 1 tablet Documented by: Ondansetron HCl (Zofran) 4 mg IV Q8H PRN PRN PRN Reason: NAUSEA/VOMITING Last Admin: 06/07/20 05:46 Dose: 4 mg Documented by: Oxycodone HCl (Oxyir) 5 mg PO Q6H PRN PRN PRN Reason: Pain Score 4-5/10 Last Admin: 06/07/20 04:00 Dose: 5 mg Documented by: Oxycodone HCl (Oxyir) 10 mg PO Q6H PRN PRN PRN Reason: Pain Score 6-10/10 Last Admin: 06/07/20 11:10 Dose: 10 mg Documented by: Senna/Docusate Sodium (Senokot-S, Alexandra-Colace) 2 tablet PO BID PRN PRN PRN Reason: Constipation Last Admin: 06/07/20 20:30 Dose: 2 tablet Documented by: Sodium Chloride () 10 - 40 ml IV UD PRN PRN Reason: SALINE FLUSH Last Admin: 06/08/20 20:44 Dose: 10 ml Documented by: Ursodiol (Huey) 500 mg [facility] Last Admin: 06/09/20 11:14 Dose: 500 mg Documented by: STROKE Vital Signs/Narrative: Vital Signs Temp Pulse Resp BP Pulse Ox 06/09/20 11:12 98.0 F 62 18 142/66 H 100 Assessment/Plan This patient was seen in conjunction with Zana LUEVANO. I have independently interviewed and examined the patient and reviewed pertinent history, examination findings, laboratory and plan of management. I have reviewed the note and agree with the documented findings with the few additional points. In brief, patient is admitted for mechanical fall with multiple fractures most likely pathological, clinically osteoporosis in nature. He has fracture of patella, bilateral wrists, nasal bone and currently left knee is on immobilizer. Bilateral wrist splint. Patient is following with orthopedics. Patient had left ankle surgery Dr. Carrero. Vitamin D 51. B12 176. Calcium 8.7. Serum phosphorus ordered. On calcium carbonate supplement dose. 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 Other comorbidities as mentioned above including coronary artery status post stents, hypertension, dyslipidemia and chronic back pain. Patient also has history of chronic primary biliary cholangitis with thrombocytopenia, platelet count 1 28,000 and stable. I have discussed my assessment with Zana LUEVANO and orders have been reviewed. Inpatient E&M: 21326 Subs Hosp L2
--- NOTE | 2020-06-09 14:52 | CASEMGMT ---
Social Work Note BRANT received call from [facility] in [facility] stating pt has been approved and can admit today. SW updated physician. SW in to speak with pt. SW updated pt on approval for [facility] and discharge to [facility] today. Pt states understanding. SW offered to call pt's Marlene to update, pt states Marlene is at an appointment with pt's step daughter and she should not be disturbed. Pt states he will update his . Plan: [facility] today Delaney Chambers SPEECH COACH, APPRENTICE
--- NOTE | 2020-06-09 15:15 | DCINST_ITS ---
- Discharge Diagnoses Current Active Problems: Current Active and Chronic Problems (Last Reviewed 06/07/20 @ 04:[address] Jeff Giron MD) Fall (Acute) Multiple fractures (Acute) You will use the following diet at home:: Cardiac Your food should be the consistency of: Regular Your liquids should be the consistency of: Regular/Thin Discharge Activity: Return to Normal Activity Allergies/Adverse Reactions: Allergies metoprolol [From Lopressor] Allergy (Intermediate, Verified 06/06/20 17:42) Shortness of breath Penicillins Allergy (Verified 06/06/20 17:42) Rash Medications to take at Discharge Aspirin E.C. [Ecotrin] 81 mg PO DAILY@0800 12/06/16 Ursodiol [Huey] 500 mg PO BIDCM 12/06/16 albuterol sulfate 90 mcg/actuation aerosol inhaler 2 puff INHALATION Q4H PRN g 05/25/19 finasteride 5 mg tablet 5 mg PO DAILY 05/25/19 multivitamin 1 tab PO BIDCM 05/25/19 nitroglycerin 0.4 mg sublingual tablet 0.4 mg SUBLINGUAL Q5-15M PRN 05/25/19 Brimonidine Tartrate [Alphagan P] 1 drp EACH EYE BID 06/02/19 Travoprost 0.004% [Travatan-Z 0.004% Eye Drop] 1 drp EACH EYE QHS 06/02/19 magnesium oxide 500 mg tablet 1,500 mg PO QHS tab 06/27/19 cetirizine 10 mg capsule 10 mg PO DAILY PRN 08/29/19 ezetimibe 10 mg tablet 10 mg PO DAILY #90 tab 09/03/19 atorvastatin 20 mg tablet 20 mg PO QHS #90 tab 10/23/19 clopidogrel 75 mg tablet 75 mg PO DAILY #90 tab 10/23/19 lisinopril 2.5 mg tablet 2.5 mg PO QHS #90 tab 11/06/19 Netarsudil Mesylate [Rhopressa] 1 drp OP DAILY 06/06/20 Acetaminophen [Tylenol Tablet] 650 mg PO Q6H PRN PRN tab 06/09/20 Calcium Carb/Vitamin D [Os-Steve 500MG + D] 1 tab PO BIDCM tab 06/09/20 Oxycodone [Oxyir] 5 mg PO Q6H PRN PRN 3 Days #12 tab 06/09/20 Senna/Docusate Sodium [Senokot-S] 2 tab PO BID PRN PRN tab 06/09/20 Primary Care Physician: Manuel Logan MD [Primary Care Provider] - Please follow up with your Primary Care Physician in: 2 weeks Test Results: Test results from this visit will be discussed in further detail at your follow- up appointment, if applicable. Please Follow Up With: Jeff Carrero DO When: 2 weeks Proposed Discharge Date: 06/09/20
--- NOTE | 2020-06-09 15:16 | PCM.DC.SUM ---
<Zana Bo - Last Filed: 06/09/20 15:16> Discharge Date and Diagnosis - Problem List Patient Problems: Active and Suspected Problems (Last Reviewed 06/07/20 @ 04:[address] Jeff Giron MD) Fall (Acute) Multiple fractures (Acute) Date of Admission: 06/06/20 Date of Discharge: 06/09/20 - Primary Discharge Diagnosis Acute Problems: Active Problems (Last Reviewed 06/07/20 @ 04:[address] Jeff Giron MD) Mechanical fall with fractures to the nose, left patella, BL wrists Mild thrombocytopenia CAD prior stent - Secondary Discharge Diagnosis Chronic Problems: Chronic Problems (Last Reviewed 06/07/20 @ 04:[address] Jeff Giron MD) Nonrheumatic aortic valve stenosis (Chronic) Essential hypertension (Chronic) Atherosclerosis of coronary artery of [place] heart without angina pectoris (Chronic) 2.75 x 15 mm Promus to mid LAD, 3.0 x 12 mm Promus to proximal LAD 08/14/10; 2.5 x 8 mm Xience Alpine FIDEL to mid LAD 11/15/16 Presence of stent in coronary artery (Chronic) 2.75 x 15 mm Promus to mid LAD, 3.0 x 12 mm Promus to proximal LAD 08/14/10; 2.5 x 8 mm Xience Alpine FIDEL to mid LAD 11/15/16 Primary biliary cirrhosis (Chronic) Cholelithiasis without obstruction (Chronic) Hyperlipidemia (Chronic) Hospital Course and Treatment Imaging Results: IMAGING: RAD/Wrist min 3 Views IMPRESSION: Acute displaced chip fracture on the dorsal surface of the triquetrum RAD/Wrist min 3 Views IMPRESSION: 1. Small slightly displaced vertical fracture through the posterior/dorsal aspect of the right triquetral bone is seen on the lateral view. RAD/Knee 3 Views IMPRESSION: 1. Acute nondisplaced fracture of the lateral patellar facet and large joint effusion. CT/Brain/Head without Contrast IMPRESSION: No acute intracranial abnormality. Chronic changes as above. ASPECT 10. Individualized dose optimization techniques were used for this CT. CT/Sinus/Facial Bone IMPRESSION: Possible left-sided nasal bone acute fracture. Individualized dose optimization techniques were used for this CT. CT/Spine Cervical without Contras IMPRESSION: Multilevel degenerative disc disease without acute fracture or traumatic subluxation. Individualized dose optimization techniques were used for this CT. Operations: None Procedures: None Summary of Care Provided: Hospital Course: The patient is a 85 year old M with pmhx as above who presented to the ER with a fall and multiple injuries. He was found to have fractures of the nose, left patella, and BL wrists. The patient had poor balance at home since undergoing a left ankle surgery. His orthopedic surgeon is Dr. Moreau. Ortho was contacted by the ER who recommended splinting the wrists and left knee immobilizer with weightbearing as tolerated. Nasal bleeding was controlled. The patient was admitted to the med surg unit. Aspirin and Plavix were held due to bleeding and mildly low platelets. Platelets stabilized and he was restarted on aspirin and plavix. He had transient low BP the first night, IV fluids were bolused, and his home baclofen was stopped and lisinopril was temporarily held. Later, lisinopril was resumed with no hypotension. Vit b12 and VIt D levels were normal. Pain and swelling was well controlled during this stay. He does require ongoing therapy and was accepted at the rehab unit. He was discharged there in stable condition. He should follow up with ortho in 2 weeks, and have routine follow up with his PCP in 2 weeks. This patient was seen by Zana Bo PA-C under the supervision of Dr. Berkowitz. [] Patient Problems: Active and Suspected Problems (Last Reviewed 06/07/20 @ 04:[address] Jeff Giron MD) Fall (Acute) Multiple fractures (Acute) - Physical Exam Vitals/I&O's: Vital Signs Temp Pulse Resp BP Pulse Ox 98.0 F 62 18 142/66 H 100 06/09/20 11:12 06/09/20 11:12 06/09/20 11:12 06/09/20 11:12 06/09/20 11:12 Oxygen Delivery Method Room Air Weight: 233 lb 7.512 oz Body Mass Index (BMI) 31.6 Intake and Output for Last 24 Hours 06/07/20 06/08/20 06/09/20 23:59 23:59 23:59 Intake Total 1500 / 2300 1850 / 1850 1100 / 1100 Output Total 1450 / 2350 1125 / 1125 400 / 400 Balance 50 / -50 725 / 725 700 / 700 General: Alert, Oriented x3, Cooperative HEENT: Atraumatic, PERRLA, EOMI, Normocephalic, - - nose without active bleeding Neck: Supple, No JVD, Negative Carotid Bruits Lungs: Clear to auscultation, Normal air movement Cardiovascular: Regular rate, No murmurs Abdomen: Bowel Sounds Present, Soft, Non Tender Extremities: No edema, Capillary Refill Less than 3 Seconds Skin: No rashes, No breakdown Musculoskeletal: No Tenderness to Palpation of Joints or Extremities, - - BL UE wrist and hand swelling is present however significantly improved. PMS intact. BL wrist splints in place. Left knee immobilizer in place Neurological: Cranial nerves II-XII grossly intact Psych/Mental Status: Normal Affect, Appropriate, Alert and oriented to time, place, person, mood and affect Laboratory Results 06/07/20 06:40: Vitamin B12 476, Vitamin D 25-Hydroxy 51.3 06/09/20 05:32: WBC 7.2, RBC 3.79 L, Hgb 11.9 L, Hct 37.2 L, MCV 98.2 H, MCH 31.4, MCHC 32.0, RDW Std Deviation 50.6 H, RDW Coeff of Angelia 13.9, Plt Count 128 L, MPV 10.9, Immature Gran % (Auto) 0.300, Neut % (Auto) 52.4, Lymph % (Auto) 29.0, [place] % (Auto) 13.9 H, Eos % (Auto) 4.0, Baso % (Auto) 0.4, Absolute Neuts (auto) 3.8, Absolute Lymphs (auto) 2.09, Nucleated RBC % 0 06/09/20 05:32: Phosphorus Pending Current Medications Acetaminophen (Tylenol) 650 mg PO Q6H PRN PRN PRN Reason: Pain Score 1-10/Temp > 100.7 F Last Admin: 06/08/20 23:22 Dose: 650 mg Documented by: Albuterol Sulfate (Ventolin Aerosols) 2.5 mg INHALATION Q2H PRN PRN PRN Reason: SOB/WHEEZING Last Admin: 06/08/20 03:11 Dose: 2.5 mg Documented by: Atorvastatin Calcium (Lipitor) 20 mg PO QHS [facility] Last Admin: 06/08/20 20:45 Dose: 20 mg Documented by: Brimonidine Tartrate (Alphagan P 0.15%) 1 drop EACH EYE BID [facility] Last Admin: 06/09/20 11:15 Dose: 1 drop Documented by: Calcium/Vitamin D (Os-Steve 500mg + D) [facility] Clopidogrel Bisulfate (Plavix) 75 mg PO DAILY [facility] Last Admin: 06/09/20 11:18 Dose: 75 mg Documented by: Ezetimibe (Zetia) 10 mg PO DAILY [facility] Last Admin: 06/09/20 11:15 Dose: 10 mg Documented by: Finasteride (Proscar) 5 mg PO DAILY [facility] Last Admin: 06/09/20 11:16 Dose: 5 mg Documented by: Latanoprost (Xalatan Opthalmic) 1 drop EACH EYE QHS [facility] Last Admin: 06/08/20 20:45 Dose: 1 drop Documented by: Lisinopril (Zestril) 2.5 mg PO DAILY@2200 [facility] Last Admin: 06/08/20 20:45 Dose: 2.5 mg Documented by: Loratadine (Claritin) 10 mg PO DAILY PRN PRN PRN Reason: allergies Magnesium Chloride (Mag64) 320 mg PO QHS [facility] Last Admin: 06/08/20 19:42 Dose: Not Given Documented by: Multivitamins (Multivitamin) 1 [facility] Last Admin: 06/09/20 11:14 Dose: 1 tablet Documented by: Ondansetron HCl (Zofran) 4 mg IV Q8H PRN PRN PRN Reason: NAUSEA/VOMITING Last Admin: 06/07/20 05:46 Dose: 4 mg Documented by: Oxycodone HCl (Oxyir) 5 mg PO Q6H PRN PRN PRN Reason: Pain Score 4-5/10 Last Admin: 06/07/20 04:00 Dose: 5 mg Documented by: Oxycodone HCl (Oxyir) 10 mg PO Q6H PRN PRN PRN Reason: Pain Score 6-10/10 Last Admin: 06/07/20 11:10 Dose: 10 mg Documented by: Senna/Docusate Sodium (Senokot-S, Alexandra-Colace) 2 tablet PO BID PRN PRN PRN Reason: Constipation Last Admin: 06/07/20 20:30 Dose: 2 tablet Documented by: Sodium Chloride () 10 - 40 ml IV UD PRN PRN Reason: SALINE FLUSH Last Admin: 06/08/20 20:44 Dose: 10 ml Documented by: Ursodiol (Huey) 500 mg PO BIDCM [facility] Last Admin: 06/09/20 11:14 Dose: 500 mg Documented by: Discharge Diet: Low fat/ Low Cholesterol, 2000 mg Sodium Diet Discharge Activity: Return to Normal Activity Home Medications: Medications to take at Discharge Aspirin E.C. [Ecotrin] 81 mg PO DAILY@0800 12/06/16 Ursodiol [Huey] 500 mg PO BIDCM 12/06/16 albuterol sulfate 90 mcg/actuation aerosol inhaler 2 puff INHALATION Q4H PRN g 05/25/19 finasteride 5 mg tablet 5 mg PO DAILY 05/25/19 multivitamin 1 tab PO BIDCM 05/25/19 nitroglycerin 0.4 mg sublingual tablet 0.4 mg SUBLINGUAL Q5-15M PRN 05/25/19 Brimonidine Tartrate [Alphagan P] 1 drp EACH EYE BID 06/02/19 Travoprost 0.004% [Travatan-Z 0.004% Eye Drop] 1 drp EACH EYE QHS 06/02/19 magnesium oxide 500 mg tablet 1,500 mg PO QHS tab 06/27/19 cetirizine 10 mg capsule 10 mg PO DAILY PRN 08/29/19 ezetimibe 10 mg tablet 10 mg PO DAILY #90 tab 09/03/19 atorvastatin 20 mg tablet 20 mg PO QHS #90 tab 10/23/19 clopidogrel 75 mg tablet 75 mg PO DAILY #90 tab 10/23/19 lisinopril 2.5 mg tablet 2.5 mg PO QHS #90 tab 11/06/19 Netarsudil Mesylate [Rhopressa] 1 drp OP DAILY 06/06/20 Acetaminophen [Tylenol Tablet] 650 mg PO Q6H PRN PRN tab 06/09/20 Calcium Carb/Vitamin D [Os-Steve 500MG + D] 1 tab PO BIDCM tab 06/09/20 Oxycodone [Oxyir] 5 mg PO Q6H PRN PRN 3 Days #12 tab 06/09/20 Senna/Docusate Sodium [Senokot-S] 2 tab PO BID PRN PRN tab 06/09/20 Primary Care Physician: Manuel Logan MD [Primary Care Provider] - Please follow up with your Primary Care Physician in: 2 weeks Please Follow Up With: Jeff Carrero DO When: 2 weeks Disposition: Inpt Rehab Unit/Facility Minutes spent on discharge:: 35 Patient Condition:: Stable Medical Necessity - Tobacco Use Smoking Status: Never smoker Meaningful Use Info Meaningful Use Diagnoses (Choose all that apply): None applicable <Jeffrey Berkowitz - Last Filed: 06/09/20 15:46> Discharge Date and Diagnosis - Primary Discharge Diagnosis Acute Problems: Active Problems (Last Reviewed 06/07/20 @ 04:[address] Jeff Giron MD) Fall (Acute) Multiple fractures (Acute) - Secondary Discharge Diagnosis Chronic Problems: Chronic Problems (Last Reviewed 06/07/20 @ 04:[address] Jeff Giron MD) Nonrheumatic aortic valve stenosis (Chronic) Essential hypertension (Chronic) Atherosclerosis of coronary artery of [place] heart without angina pectoris (Chronic) 2.75 x 15 mm Promus to mid LAD, 3.0 x 12 mm Promus to proximal LAD 08/14/10; 2.5 x 8 mm Xience Alpine FIDEL to mid LAD 11/15/16 Presence of stent in coronary artery (Chronic) 2.75 x 15 mm Promus to mid LAD, 3.0 x 12 mm Promus to proximal LAD 08/14/10; 2.5 x 8 mm Xience Alpine FIDEL to mid LAD 11/15/16 Primary biliary cirrhosis (Chronic) Cholelithiasis without obstruction (Chronic) Hyperlipidemia (Chronic) Hospital Course and Treatment Summary of Care Provided: This patient was seen in conjunction with Zana LUEVANO. I have independently interviewed and examined the patient and reviewed pertinent history, examination findings, laboratory and plan of management. I have reviewed the note and agree with the documented findings with the few additional points. In brief, patient is admitted for mechanical fall with multiple fractures most likely pathological, clinically osteoporosis in nature. He has fracture of patella, bilateral wrists, nasal bone and currently left knee is on immobilizer. Bilateral wrist splint. Patient is following with orthopedics. Patient had left ankle surgery Dr. Carrero. Vitamin D 51. B12 176. Calcium 8.7. Serum phosphorus is pending. On calcium carbonate supplement dose. 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 Patient will need discussion to consider bisphosphonate. Estimated creatinine clearance 61 mils per minute. Other comorbidities as mentioned above including coronary artery status post stents, hypertension, dyslipidemia and chronic back pain. Patient also has history of chronic primary biliary cholangitis with thrombocytopenia, platelet count 128,000 and stable. I have discussed my assessment with Zana LUEVANO and orders have been reviewed. [] Objective: Patient was seen and examined. Physical exam finding on the progress note. - Physical Exam Vitals/I&O's: Vital Signs Temp Pulse Resp BP Pulse Ox 98.0 F 62 18 142/66 H 100 06/09/20 11:12 06/09/20 11:12 06/09/20 11:12 06/09/20 11:12 06/09/20 11:12 Oxygen Delivery Method Room Air Weight: 233 lb 7.512 oz Body Mass Index (BMI) 31.6 Intake and Output for Last 24 Hours 06/07/20 06/08/20 06/09/20 23:59 23:59 23:59 Intake Total 1500 / 2300 1850 / 1850 1100 / 1100 Output Total 1450 / 2350 1125 / 1125 400 / 400 Balance 50 / -50 725 / 725 700 / 700 Laboratory Results 06/07/20 06:40: Vitamin B12 476, Vitamin D 25-Hydroxy 51.3 06/09/20 05:32: WBC 7.2, RBC 3.79 L, Hgb 11.9 L, Hct 37.2 L, MCV 98.2 H, MCH 31.4, MCHC 32.0, RDW Std Deviation 50.6 H, RDW Coeff of Angelia 13.9, Plt Count 128 L, MPV 10.9, Immature Gran % (Auto) 0.300, Neut % (Auto) 52.4, Lymph % (Auto) 29.0, [place] % (Auto) 13.9 H, Eos % (Auto) 4.0, Baso % (Auto) 0.4, Absolute Neuts (auto) 3.8, Absolute Lymphs (auto) 2.09, Nucleated RBC % 0 06/09/20 05:32: Phosphorus Pending Current Medications Acetaminophen (Tylenol) 650 mg PO Q6H PRN PRN PRN Reason: Pain Score 1-10/Temp > 100.7 F Last Admin: 06/08/20 23:22 Dose: 650 mg Documented by: Albuterol Sulfate (Ventolin Aerosols) 2.5 mg INHALATION Q2H PRN PRN PRN Reason: SOB/WHEEZING Last Admin: 06/08/20 03:11 Dose: 2.5 mg Documented by: Atorvastatin Calcium (Lipitor) 20 mg PO QHS [facility] Last Admin: 06/08/20 20:45 Dose: 20 mg Documented by: Brimonidine Tartrate (Alphagan P 0.15%) 1 drop EACH EYE BID [facility] Last Admin: 06/09/20 11:15 Dose: 1 drop Documented by: Calcium/Vitamin D (Os-Steve 500mg + D) [facility] Clopidogrel Bisulfate (Plavix) 75 mg PO DAILY [facility] Last Admin: 06/09/20 11:18 Dose: 75 mg Documented by: Ezetimibe (Zetia) 10 mg PO DAILY [facility] Last Admin: 06/09/20 11:15 Dose: 10 mg Documented by: Finasteride (Proscar) 5 mg PO DAILY [facility] Last Admin: 06/09/20 11:16 Dose: 5 mg Documented by: Latanoprost (Xalatan Opthalmic) 1 drop EACH EYE QHS [facility] Last Admin: 06/08/20 20:45 Dose: 1 drop Documented by: Lisinopril (Zestril) 2.5 mg PO DAILY@2200 [facility] Last Admin: 06/08/20 20:45 Dose: 2.5 mg Documented by: Loratadine (Claritin) 10 mg PO DAILY PRN PRN PRN Reason: allergies Magnesium Chloride (Mag64) 320 mg PO QHS [facility] Last Admin: 06/08/20 19:42 Dose: Not Given Documented by: Multivitamins (Multivitamin) 1 tablet [facility] Last Admin: 06/09/20 11:14 Dose: 1 tablet Documented by: Ondansetron HCl (Zofran) 4 mg IV Q8H PRN PRN PRN Reason: NAUSEA/VOMITING Last Admin: 06/07/20 05:46 Dose: 4 mg Documented by: Oxycodone HCl (Oxyir) 5 mg PO Q6H PRN PRN PRN Reason: Pain Score 4-5/10 Last Admin: 06/07/20 04:00 Dose: 5 mg Documented by: Oxycodone HCl (Oxyir) 10 mg PO Q6H PRN PRN PRN Reason: Pain Score 6-10/10 Last Admin: 06/07/20 11:10 Dose: 10 mg Documented by: Senna/Docusate Sodium (Senokot-S, Alexandra-Colace) 2 tablet PO BID PRN PRN PRN Reason: Constipation Last Admin: 06/07/20 20:30 Dose: 2 tablet Documented by: Sodium Chloride () 10 - 40 ml IV UD PRN PRN Reason: SALINE FLUSH Last Admin: 06/08/20 20:44 Dose: 10 ml Documented by: Ursodiol (Huey) 500 mg [facility] Last Admin: 06/09/20 11:14 Dose: 500 mg Documented by: Inpatient E&M: [id number] [facility]
[2020-06-09 15:47] VITALS: BP 154/78; PULSE 52; RESP 18; TEMP 36.5; O2SAT 98
[2020-06-09 15:49] LABS: Phosphorus 3.1 mg/dL (2.5-4.9)
[2020-06-09] MEDS: Acetaminophen 325 MG Tablet 650 MG PO (15:50)
[2020-06-09] MEDS: Calcium Carb/Vitamin D 1 TABLET Tablet PO (15:51)
== END 2020-06-09 17:34 | DRG 563 ==
LOC: ED 19:42 → MS3 22:10
PROVIDERS: Physician Assistant; Admitting Provider Hospitalist; Emergency Provider Emergency Medicine; PCP Family Medicine; Visit Provider Internal Medicine
DX: S82.002A Unspecified fracture of left patella, initial encounter for closed fracture (principal); S02.2XXA Fracture of nasal bones, initial encounter for closed fracture; S00.91XA Abrasion of unspecified part of head, initial encounter; S62.112A Displaced fracture of triquetrum [cuneiform] bone, left wrist, initial encounter for closed fracture; S62.111A Displaced fracture of triquetrum [cuneiform] bone, right wrist, initial encounter for closed fracture; W01.0XXA Fall on same level from slipping, tripping and stumbling without subsequent striking against object, initial encounter; Y93.01 Activity, walking, marching and hiking; Y92.9 Unspecified place or not applicable; Z23 Encounter for immunization; I10 Essential (primary) hypertension; I25.10 Atherosclerotic heart disease of native coronary artery without angina pectoris; E78.5 Hyperlipidemia, unspecified; K74.3 Primary biliary cirrhosis; J45.909 Unspecified asthma, uncomplicated; N40.0 Benign prostatic hyperplasia without lower urinary tract symptoms; M19.90 Unspecified osteoarthritis, unspecified site; H40.9 Unspecified glaucoma; L40.9 Psoriasis, unspecified; D69.6 Thrombocytopenia, unspecified; G89.29 Other chronic pain
CPT/HCPCS: 36415; 70450; 70486; 72125; 73110; 73562; 80048; 82306; 82607; 84100; 85025; 85027; 90471; 90715; 94640; 97116; 97162; 97165; 97530; 97535; 99285; J7030; A4216; J2405

== ENCOUNTER 2020-06-09 18:30 | Inpatient (IN) | payer MEDICARE, SELFPAY ==
[2020-06-09 18:50] VITALS: BP 119/68; PULSE 63; RESP 18; TEMP 36.8; O2SAT 97; BMI 32.5; BMI 32.6
[2020-06-09] MEDS: BRIMONIDINE 0.15% 5 ML Bottle 1 DRP EACH EYE (20:40)
[2020-06-09] MEDS: Magnesium Chloride 64 MG Delay Rel.Tablet 320 MG PO (20:41)
[2020-06-09] MEDS: Latanoprost 0.005% 1 Bottle 1 DRP EACH EYE (20:41)
[2020-06-09] MEDS: Atorvastatin Calcium 20 MG Tablet PO (20:41)
[2020-06-09] MEDS: Lisinopril 2.5 MG Tablet PO (20:42)
[2020-06-09] MEDS: Acetaminophen 325 MG Tablet 650 MG PO (20:47)
[2020-06-09 20:59] VITALS: BP 127/65; PULSE 63; RESP 18; TEMP 36.6; O2SAT 96
[2020-06-10 05:40] VITALS: RESP 16; O2SAT 96
[2020-06-10 07:13] VITALS: O2SAT 93
[2020-06-10] MEDS: oxyCODONE 5 MG Tablet PO ×3 (07:44→21:09)
[2020-06-10] MEDS: Multivitamins,Therapeutic Tablet 1 TABLET PO ×2 (07:47→17:03)
[2020-06-10] MEDS: Aspirin E.C. 81 MG Tablet PO (07:47)
[2020-06-10] MEDS: Calcium Carb/Vitamin D 1 TABLET Tablet PO ×2 (07:47→17:03)
[2020-06-10] MEDS: Ursodiol 250 MG Tablet 500 MG PO ×2 (07:48→17:03)
[2020-06-10] MEDS: Finasteride 5 MG Tablet PO (07:49)
[2020-06-10] MEDS: Clopidogrel Bisulfate 75 MG Tablet PO (07:49)
[2020-06-10] MEDS: Ezetimibe 10 MG Tablet PO (07:50)
[2020-06-10] MEDS: BRIMONIDINE 0.15% 5 ML Bottle 1 DRP EACH EYE ×2 (07:50→20:58)
--- NOTE | 2020-06-10 09:28 | HP.PCM_ITS ---
Problem List (1) Thrombocytopenia Status: Chronic Comment: Since 2011 (2) Hyponatremia Status: Acute (3) Macrocytic anemia Status: Chronic (4) Degenerative disc disease, cervical Status: Chronic Comment: Worst at C5-6 and C6-7. (5) Fall Status: Acute Qualifiers: Encounter type: subsequent encounter Qualified Code(s): W19.XXXD - Unspecified fall, subsequent encounter (6) Multiple fractures Status: Acute Comment: Bilateral wrists, left patella and nasal bone (7) Nonrheumatic aortic valve stenosis Status: Chronic (8) Essential hypertension Status: Chronic (9) Atherosclerosis of coronary artery of [place] heart without angina pectoris Status: Chronic Qualifiers: Coronary Disease-Associated Artery/Lesion type: [place] artery Qualified Code(s): I25.10 - Atherosclerotic heart disease of [place] coronary artery without angina pectoris Comment: 2.75 x 15 mm Promus to mid LAD, 3.0 x 12 mm Promus to proximal LAD 08/14/10; 2.5 x 8 mm Xience Alpine FIDEL to mid LAD 11/15/16 (10) Presence of stent in coronary artery Status: Chronic Comment: 2.75 x 15 mm Promus to mid LAD, 3.0 x 12 mm Promus to proximal LAD 08/14/10; 2.5 x 8 mm Xience Alpine FIDEL to mid LAD 11/15/16 (11) Primary biliary cirrhosis Status: Chronic (12) Cholelithiasis without obstruction Status: Chronic (13) Hyperlipidemia Status: Chronic Qualifiers: Hyperlipidemia type: unspecified Qualified Code(s): E78.5 - Hyperlipidemia, unspecified (14) Physical debility Status: Acute Comment: Due to recent fall with multiple fractures including nasal bone, left patella and bilateral wrist fractures. (15) Psoriasis Status: Chronic (16) Glaucoma Status: Chronic History of Present Illness Date of Admission: 06/09/20 Chief Complaint: Debility secondary to recent fall resulting in multiple fractures including the nose, left patella and bilateral wrists. The patient is a 85 year old M with a past medical history of hyperli pidemia, hypertension, primary biliary cirrhosis with recent alkaline phosphatase within normal limits, glaucoma, coronary artery disease, PTCA with drug-eluting stent to the mid LAD and proximal LAD, mild biatrial enlargement, cholelithiasis and nonrheumatic aortic valve stenosis (but cath in May showed no AV stenosis) who presented to the emergency department at [facility] on 06/06/2020 after a fall. He has chronic problems with maintaining balance. The fall resulted in fracture of the nasal bone, bilateral wrists, left patellar facet fx and a large Left knee effusion. He was admitted to the hospital for observation and was seen by PT and OT. Recommendation for transfer to acute inpt rehab was made. He was admitted to the rehab floor at [facility] on 06/09/20 for 3 hours of therapy daily to restore at or near his prior level of function. Past Medical History Past Medical History (Chronic Problems): Chronic Problems (Last Reviewed 06/07/20 @ 04:[address] Jeff Giron MD) Thrombocytopenia (Chronic) Since 2011 Macrocytic anemia (Chronic) Degenerative disc disease, cervical (Chronic) Worst at C5-6 and C6-7. Psoriasis (Chronic) Glaucoma (Chronic) Nonrheumatic aortic valve stenosis (Chronic) Essential hypertension (Chronic) Atherosclerosis of coronary artery of [place] heart without angina pectoris (Chronic) 2.75 x 15 mm Promus to mid LAD, 3.0 x 12 mm Promus to proximal LAD 08/14/10; 2.5 x 8 mm Xience Alpine FIDEL to mid LAD 11/15/16 Presence of stent in coronary artery (Chronic) 2.75 x 15 mm Promus to mid LAD, 3.0 x 12 mm Promus to proximal LAD 08/14/10; 2.5 x 8 mm Xience Alpine FIDEL to mid LAD 11/15/16 Primary biliary cirrhosis (Chronic) Cholelithiasis without obstruction (Chronic) Hyperlipidemia (Chronic) Medical History: Medical History (Last Reviewed 06/11/20 @ 15:[address] Keira Ponce DO) Nonrheumatic aortic valve stenosis (Chronic) I35.0 Essential hypertension (Chronic) I10 Atherosclerosis of coronary artery of [place] heart without angina pectoris (Chronic) I25.10 2.75 x 15 mm Promus to mid LAD, 3.0 x 12 mm Promus to proximal LAD 08/14/10; 2.5 x 8 mm Xience Alpine FIDEL to mid LAD 11/15/16 Primary biliary cirrhosis (Chronic) K74.3 Cholelithiasis without obstruction (Chronic) K80.20 Hyperlipidemia (Chronic) E78.5 Asthma J45.909 BPH (benign prostatic hyperplasia) N40.0 Bradycardia R00.1 Glaucoma H40.9 Osteoarthritis M19.90 Psoriasis L40.9 Thrombocytopenia D69.6 Allergies metoprolol [From Lopressor] Allergy (Intermediate, Verified 06/06/20 17:42) Shortness of breath Penicillins Allergy (Verified 06/06/20 17:42) Rash Home Medications: Ambulatory Orders Medication Instructions Recorded Aspirin E.C. [Ecotrin] 81 mg PO DAILY@0800 12/06/16 Ursodiol [Huey] 500 mg PO BIDCM 12/06/16 albuterol sulfate 90 mcg/actuation 2 puff INHALATION Q4H PRN g 05/25/19 aerosol inhaler finasteride 5 mg tablet 5 mg PO DAILY 05/25/19 multivitamin 1 tab PO BIDCM 05/25/19 nitroglycerin 0.4 mg sublingual 0.4 mg SUBLINGUAL Q5-15M PRN 05/25/19 tablet Brimonidine Tartrate [Alphagan P] 1 drp EACH EYE BID 06/02/19 Travoprost 0.004% [Travatan-Z 1 drp EACH EYE QHS 06/02/19 0.004% Eye Drop] magnesium oxide 500 mg tablet 1,500 mg PO QHS tab 06/27/19 cetirizine 10 mg capsule 10 mg PO DAILY PRN 08/29/19 ezetimibe 10 mg tablet 10 mg PO DAILY #90 tab 09/03/19 atorvastatin 20 mg tablet 20 mg PO QHS #90 tab 10/23/19 clopidogrel 75 mg tablet 75 mg PO DAILY #90 tab 10/23/19 lisinopril 2.5 mg tablet 2.5 mg PO QHS #90 tab 11/06/19 Netarsudil Mesylate [Rhopressa] 1 drp OP DAILY 06/06/20 Acetaminophen [Tylenol Tablet] 650 mg PO Q6H PRN PRN tab 06/09/20 Calcium Carb/Vitamin D [Os-Steve 1 tab PO BIDCM 06/09/20 500MG + D] Oxycodone [Oxyir] 5 mg PO Q6H PRN PRN 3 Days #12 tab 06/09/20 Senna/Docusate Sodium [Senokot-S] 2 tab PO BID PRN PRN tab 06/09/20 Surgical History: Surgical History (Last Reviewed 06/11/20 @ 15:[address] Keira Ponce DO) Presence of stent in coronary artery (Chronic) Z95.5 2.75 x 15 mm Promus to mid LAD, 3.0 x 12 mm Promus to proximal LAD 08/14/10; 2.5 x 8 mm Xience Alpine FIDEL to mid LAD 11/15/16 History of appendectomy Z90.49 History of cataract extraction Z98.49 History of partial colectomy Onset Date: ~2003 Z90.49 Surgical History: appendectomy, colectomy - 12 section of colon removed. , tonsillectomy - as /child, - - calcification of kidney and gall stones. Psychiatric History: No pertinent psych hx Lives: Spouse/ Significant Other Smoking Status: Never smoker Tobacco Use: Non-smoker Alcohol: Rare Drugs: None - *Family History Maternal Family History: Family History (Last Reviewed 06/07/20 @ 04:[address] Jeff Giron MD) Father Hypertension Grandmother Hypertension History Items: No pertinent history Review of Systems Constitutional: Denies: Anorexia, Chills, Fever, Weight Change Eyes: Denies: Vision Change HEENT: Denies: Difficulty Hearing, Difficulty Swallowing, Head Aches, Nasal Congestion, Sinus Congestion, Sinus Drainage, Sore Throat Cardiovascular: Reports: Light Headedness - usually when he is getting out of bed in the AM, Syncope - he is unsure if he passed out the day he fell. He was outside and went face first and traumatized himself.....I suspect he may have had syncope but, he broke both wrists so may be he did not pass out and he was trying to break his fall. Denies: Chest Pain, Chest Pressure, Chest Tightness, Edema, Orthopnea, Palpitations Respiratory: Denies: Cough, Shortness of Breath, Shortness of breath at rest, Shortness of breath upon exertion, Sputum production, Wheezing Gastrointestinal: Denies: Abdominal Pain, Constipation, Diarrhea, Nausea, Vomiting Genitourinary: Denies: Dysuria, Incontinence Musculoskeletal: Reports: Back Pain - off and on - he has a herniated disc that occasionally acts up, Joint Pain - R knee, left knee and both wrists Skin: Reports: Wounds - multiple abrasions of the face and bruising of both kness. Denies: Jaundice, Lesions, Rash Neurological: Denies: Focal weakness, Numbness, Tingling, Tremor, Seizures Psychiatric: Denies: Anxiety, Depression, Homicidal Ideations, Suicidal Ideations Hematologic/ Lymphatic: Denies: Easy Bruising, Easy Bleeding, Hx of blood clot VTE Information - Inpt Only VTE Present on Admission: No VTE Mechan Device Prophylaxis: Knee High ALANNA Hose VTE Pharm Prophylaxis ordered?: Yes Patient Problems: Active and Suspected Problems (Last Reviewed 06/07/20 @ 04:[address] Jeff Giron MD) Hyponatremia (Acute) Physical debility (Acute) Due to recent fall with multiple fractures including nasal bone, left patella and bilateral wrist fractures. - Physical Exam Vitals/I&O's: Vital Signs Temp Pulse Resp BP Pulse Ox 97.9 F 63 16 127/65 H 93 06/09/20 20:59 06/09/20 20:59 06/10/20 05:40 06/09/20 20:59 06/10/20 07:13 Oxygen Delivery Method Room Air Weight: 240 lb 4.862 oz Body Mass Index (BMI) 32.5 Intake and Output for Last 24 Hours 06/08/20 06/09/20 06/10/20 23:59 23:59 23:59 Intake Total 480 / 480 Output Total 650 / 650 Balance -170 / -170 General: Alert, Oriented x3, Cooperative, No apparent distress, Well developed, Well nourished HEENT: PERRLA, EOMI, Normocephalic, - - He has multiple abrasions over his nose and face secondary to recent fall Oral: No Gingival or Mucosal Lesions/ Ulcerations, Dry Mucosa Neck: Supple, No JVD, No Nodes, Trachea Midline Lungs: Clear to auscultation, No rhonchi, No wheeze, No rales Cardiovascular: Regular rate, Regular Rhythm, Normal S1, Normal S2, No murmurs, No Ectopic Activity, No rub noted, No Gallop Abdomen: Bowel Sounds Present, Soft, Non Tender, Non-Distended Extremities: No clubbing, No cyanosis, No Calf Tenderness, Edema - Left knee greater than right knee, Tenderness - Both knees are painful and so are both wrists. Skin: No rashes, No breakdown Musculoskeletal: No Muscle Wasting, Arthritic Changes Neurological: Cranial nerves II-XII grossly intact, Neuro grossly intact Psych/Mental Status: Normal Affect, Appropriate Current Medications Acetaminophen (Tylenol) 650 mg PO Q6H PRN PRN PRN Reason: Pain Score 1-10/Temp > 100.7 F Last Admin: 06/09/20 20:47 Dose: 650 mg Documented by: Albuterol Sulfate (Proventil Hfa) 2 puff IH Q4H PRN PRN PRN Reason: Asthma Aspirin (Ecotrin) 81 mg PO DAILY@0800 [facility] Last Admin: 06/10/20 07:47 Dose: 81 mg Documented by: Atorvastatin Calcium (Lipitor) 20 mg PO QHS [facility] Last Admin: 06/09/20 20:41 Dose: 20 mg Documented by: Bisacodyl (Dulcolax) 10 mg RECTAL .PRN X 1 PRN PRN Reason: Constipation Brimonidine Tartrate (Alphagan P 0.15%) 1 drop EACH EYE BID [facility] Last Admin: 06/10/20 07:50 Dose: 1 drop Documented by: Calcium/Vitamin D (Os-Steve 500mg + D) [facility] Last Admin: 06/10/20 07:47 Dose: 1 tablet Documented by: Clopidogrel Bisulfate (Plavix) 75 mg PO DAILY [facility] Last Admin: 06/10/20 07:49 Dose: 75 mg Documented by: Ezetimibe (Zetia) 10 mg PO DAILY [facility] Last Admin: 06/10/20 07:50 Dose: 10 mg Documented by: Finasteride (Proscar) 5 mg PO DAILY [facility] Last Admin: 06/10/20 07:49 Dose: 5 mg Documented by: Latanoprost (Xalatan Opthalmic) 1 drop EACH EYE QHS [facility] Last Admin: 06/09/20 20:41 Dose: 1 drop Documented by: Lisinopril (Zestril) 2.5 mg PO QHS [facility] Last Admin: 06/09/20 20:42 Dose: 2.5 mg Documented by: Loratadine (Claritin) 10 mg PO DAILY PRN PRN PRN Reason: ALLERGIES Magnesium Chloride (Mag64) 320 mg PO QHS [facility] Last Admin: 06/09/20 20:41 Dose: 320 mg Documented by: Magnesium Hydroxide (Milk Of Magnesia) 30 ml PO .PRN X 1 PRN PRN Reason: Constipation Multivitamins (Multivitamin) [facility] Last Admin: 06/10/20 07:47 Dose: 1 tablet Documented by: Nitroglycerin (Nitrostat) 0.4 mg SUBLINGUAL Q5M PRN PRN Reason: CARDIAC/CHEST PAIN Oxycodone HCl (Oxyir) 5 mg PO Q6H PRN PRN PRN Reason: Pain Score 6-10/10 Last Admin: 06/10/20 07:44 Dose: 5 mg Documented by: Senna/Docusate Sodium (Senokot-S, Alexandra-Colace) 2 tablet PO BID PRN PRN PRN Reason: Constipation Ursodiol (Huey) [facility] Last Admin: 06/10/20 07:48 Dose: 500 mg Documented by: Assessment/Plan All Active Problems (Last Reviewed 06/07/20 @ 04:[address] Jeff Giron MD) Fall (Acute) Multiple fractures (Acute) Hyponatremia (Acute) Physical debility (Acute) Impressions 1. Debility secondary to a recent fall causing bilateral wrist fractures, left patellar fracture and a fracture of the left nasal bone 2. Questionable history of aortic valve stenosis. Echocardiogram on 06/03/2019 was read as mild aortic stenosis however a cardiac catheterization in May 2019 showed no aortic stenosis. He does have mild biatrial enlargement. 3. Hypertension 4. Anemia dating back to 2012 5. Coronary artery disease with history of PTCA to the proximal LAD in July 2010 and to the mid LAD in October 2016 6. Primary biliary cirrhosis 7. Cholelithiasis 8. Hyperlipidemia 9. Obesity 10. psoriatic and/or rheumatoid arthritis - he is not sure. He follows with Dr. Akbar 11. Frequent thrombocytopenia of unknown etiology PLAN PT for gait stability OT for ADL's Analgesics as needed Bowel protocol Fall precautions Assess for Anxiety/Depression GI prophylaxis -he has no history of peptic ulcer disease and has no nausea, vomiting, epigastric pain. No GI prophylaxis at this time DVT prophylaxis-he is ambulatory. ALANNA hylton for now - can not r/o a hemorrhagic effusion of the Left knee Follow up with orthopedics following DC from IP Rehab AM lab including CMP, CBC, Mag and Phos orthostatic VS in the AM Inpatient E&M: 21005 Init Hosp L2
--- NOTE | 2020-06-10 09:29 | REHABEVAL_ITS ---
Admission Information Primary Diagnosis:: Debility secondary to a recent mechanical fall resulting in multiple fractures including the nose, left patella and bilateral wrists. Status Changes from Prescreening?: No changes Identified Actual Problem List:: Falls, Pain, ALteration in Cmfrt, Mobility Impaired, Alteration-Leisure Activ. Potential Problem List:: DVT, Bleeding, Infection, UTI, Aspiration, Falls, Skin Integrity, Depression Risk of Complications DVT: ALANNA Hose Bleeding: Monitor Lab Values, Nursing to Teach Precautions for anti-coagulation therapy., Wound, if applicable, to be assessed every shift., Stroke patients assessed for lethargy or change in status. Infection: Clinical Staff to Monitor for S/S of infection:, S/S of infection include fever, redness, warmth, etc. Urinary Tract Infection: Monitor for frequency, burning, discomfort, or incontinence., Nursing will obtain urine sample for urinalysis and C&S when ordered. Aspiration: Clinical staff will monitor for coughing, drooling, congestion., Speech will evaluate swallowing and dsyphasia., Nursing will monitor patient swallowing during meals. Falls: Patient will be evaluated for Fall Precautions, Patient will be placed on Fall Precautions as indicated per protocol. Skin Breakdown: Nursing will assess skin daily using assessment tool., Nursing will place on Skin Breakdown Precautions as indicated. Pain: Clinical staff will assess patient's pain level per protocol., Medications will be given, if needed, and the pain level reassessed., Other methods: Massage, distraction, decrease stimulus, etc. used PRN. Plan of Care Patient requires physician specializing in physical medicine and rehab oversight to provide close medical supervision of rehab issues including: Pain Management, Sleep Problems, Bowel and Bladder, Medical and co-morbidity Management, DVT prophylaxis, Rehabilitation Leadership, Coordination of treatment team Patient needs Physical Therapy: For a minimum of 1 hour, At least 5 out of 7 da ys Patient needs Physical Therapy to improve:: Mobility, Mobility, Mobility, Strengthening, Transfers, Stretching, ROM, Endurance, Stairs, Gait, Balance Patient needs Occupational Therapy: For a minimum of 1 hour, At least 5 out of 7 days Patient needs Occupational Therapy to improve ADL's incl.: Eating, Grooming, Bathing, Dressing, Toileting, Toilet transfers, Community Reintegration, Higher functioning activities, Household tasks, Adaptive Equipment, Splinting, Other activities as determined Patient requires 24/7 Rehabilitation Nursing for: Pain Issues, Identifying and preventing risk factors, Monitoring and reporting current medical conditions, Assisting with ambulation, transfer, and all ADL's, Teaching patients about disease process and medications, Family teaching, Providing safe environment, Bowel and Bladder Issues, Skin integrity, Medication Management Patient needs Recruiter Manager/ Case Management for: Discharge Planning, Arranging Home Equipment or Services, Family Interventions Patient needs Dietary and Nutrition Services for: Adequate Nutrition, Nutritional Supplements, Nutritional Education Goals Patient will remain: free from falls, or injury at time of discharge. Patient will perform bed mobility at: MOD I level of assist. Patient will complete transfers from bed to chair at: MOD I level of assist. Patient will ambulate: 100 feet, with MOD I assist, with LRD Patient will complete upper body dressing at: MOD I level of assist. Patient will complete lower body dressing at: MOD I level of assist. Patient will complete toileting at: MOD I level of assist. Patient will perform bathing at: MOD I level of assist. Patient will complete grooming at: MOD I level of assist. Patient will complete home management skills at: MOD I level of assist. Patient will achieve: 12 stairs, at MOD I assist Patient will have pain level of: of 3 or less Patient's skin will: remain intact, free from infection. Patient will receive: adequate nutrition. Discharge Planning Pt Prognosis for Sig. Practical Improv. w/in Reasonable Time: Good Estimated Length of stay (days): 10 Anticipated D/C Destination: Home with Outpt Therapy Was Preadmission Assessment Accurate?: Yes
[2020-06-10 10:00] VITALS: BP 113/59; PULSE 67; RESP 18; TEMP 36.6; O2SAT 94
--- NOTE | 2020-06-10 11:50 | CASEMGMT ---
Social Work Met with patient for initial assessment. Explained insurance information at length. Explained insurance update process, that they can provide one day notice and each time an update is submitted, it is a 50/50 chance to get approval or DC date issued. Explained IDT advocates for pt for continued stay if required and SW assists pt and with discharge plans. Explained discharge planning begins upon admission. Pt explained he hopes we tell the insurance he has two broken wrists and a broken femur. Explained the insurance receives all of his clinical information so they are provided with his dx list and levels of assistance. Explained the insurance requires the pt to continue making significant progress and meeting RU level of need to continue with approval. Thus, the pt and insurance may have different views on when the pt should be discharged. Pt inquired about appeal rights. Explained appeal rights. The pt may file an immediate appeal at the time of the DC date, the pt contacts the insurance company to explain the need for continued stay, and the insurance does not have a time frame on when they need to provide their determination. Explained the pt would be liable to pay out of pocket the daily rate until the determination is made, if that exceeds the LCD, and if the pt does not win the appeal. If the pt wins the appeal, the insurance covers the cost. Pt understood. Pt inquired about having an trial attorney file an appeal and get involved with insurance continuing to cover the stay. Reiterated the pt completes the initial appeal, but he has a right to seek trial attorney assistance if needed. Explained Team day/time/process. Pt inquired about having an advocate present because the hospital pays salary, even though he knows SW is supposed to be his advocate, but he wants to make sure we (RU staff) is not a bureaucracy and are fair to him. Validated pt's concerns, but assured pt, even though [facility] does pay salary, SW is held to ethics, a licensure, and the role to be pt's advocate and ensure he is receiving fair care. Explained all of RU staff collaborate as a Team and work to provide good, fair care to the pt. Encouraged pt to notify SW if he feels that is not happening for SW to assist. Pt replied, I appreciate that, and you promising me you will advocate and provide fair care to me. SW explained there was no promise, because SW does not make 'promises', but reiterated, SW's role and ethical standards. Pt retracted promise but appreciated explanation and support. Will continue to follow. Dorcas Velazquez, LITHOGRAPHIC PROOFER APPRENTICE [facility]
[2020-06-10] MEDS: Acetaminophen 325 MG Tablet 650 MG PO (12:04)
[2020-06-10] MEDS: Magnesium Chloride 64 MG Delay Rel.Tablet 320 MG PO (20:59)
[2020-06-10] MEDS: Lisinopril 2.5 MG Tablet PO (20:59)
[2020-06-10] MEDS: Latanoprost 0.005% 1 Bottle 1 DRP EACH EYE (20:59)
[2020-06-10] MEDS: Atorvastatin Calcium 20 MG Tablet PO (20:59)
[2020-06-10] MEDS: Senna/Docusate Sodium 1 Tablet 2 TABLET PO (21:01)
[2020-06-10 22:00] VITALS: BP 117/63; PULSE 55; RESP 16; TEMP 36.9; O2SAT 98
[2020-06-11] MEDS: Acetaminophen 325 MG Tablet 650 MG PO ×3 (02:03→20:14)
[2020-06-11 05:07] VITALS: BP 136/63; BP 141/70; BP 92/52; PULSE 59; PULSE 62; PULSE 73
[2020-06-11 05:44] LABS: Absolute Lymphocyte Count 2.49 X10^3/uL (0.83-4.51); Absolute Neutrophil Count 4.5 X10^3/uL (2.0-7.7); Basophil# 0.04 X10^3/uL; Basophil% 0.5 % (0-1); Eosinophil# 0.25 X10^3/uL; Eosinophils% 3.1 % (0-5); Hemoglobin 12.4 g/dL (13.0-16.5); Lymphocyte # 2.49 X10^3/ul (4.0); Lymphocyte % 30.6 % (19-41); Mean Corp Hgb Conc 32.6 g/dL (32-36); Mean Platelet Vol. 10.1 fl (6.2-12.0); NRBC Flagged by Analyzer 0 % (0-5); Neutrophil # 4.45 X10^3/uL (2.7-7.7); Neutrophil % 54.6 % (47-70); Platelet Count 165 K/mm3 (150-450); RBC Distribution Width CV 13.6 % (11.6-14.6); RBC Distribution Width SD 48.1 fl (35.1-43.9); White Blood Count 8.2 K/mm3 (4.4-11.0)
[2020-06-11 06:09] LABS: ALB/GLOB Ratio 0.6 RATIO (0.9-2.4); AST(SGOT) 28 U/L (15-37); Alanine Aminotransfer ALT/SGPT 26 U/L (16-61); Albumin, Serum 2.9 g/dL (3.2-5.0); Alkaline Phosphatase 87 U/L (45-117); Anion Gap 4 (5-15); BUN 17 mg/dL (7-18); BUN/Creat Ratio 22.2 RATIO (10-20); Calcium,Total 9.7 mg/dL (8.5-10.1); Chloride 103 mmol/L (98-107); Creatinine, Serum 0.77 mg/dL (0.70-1.30); EST Glomerular Filtration Rate 103 mL/min (>60); Est Glom Filt Rate - Afr Amer 125 mL/min (>60); Estimated Creatinine Clearance 61.43 ml/min; Globulin 4.7 g/dL (2.2-4.2); Glucose 100 mg/dL (74-106); Magnesium 2.1 mg/dL (1.6-2.6); Phosphorus 4.2 mg/dL (2.5-4.9); Potassium 4.1 mmol/L (3.5-5.1); Protein, Total 7.6 g/dL (6.4-8.2); Sodium Level 136 mmol/L (136-145)
[2020-06-11] MEDS: oxyCODONE 5 MG Tablet PO ×2 (08:27→15:59)
[2020-06-11] MEDS: Ursodiol 250 MG Tablet 500 MG PO ×2 (08:28→17:33)
[2020-06-11] MEDS: Clopidogrel Bisulfate 75 MG Tablet PO (08:28)
[2020-06-11] MEDS: Aspirin E.C. 81 MG Tablet PO (08:28)
[2020-06-11] MEDS: Calcium Carb/Vitamin D 1 TABLET Tablet PO ×2 (08:28→17:33)
[2020-06-11] MEDS: Multivitamins,Therapeutic Tablet 1 TABLET PO ×2 (08:28→17:33)
[2020-06-11] MEDS: Ezetimibe 10 MG Tablet PO (08:29)
[2020-06-11] MEDS: Finasteride 5 MG Tablet PO (08:29)
[2020-06-11] MEDS: BRIMONIDINE 0.15% 5 ML Bottle 1 DRP EACH EYE ×2 (08:30→20:06)
[2020-06-11 09:52] VITALS: BP 125/65; PULSE 54; RESP 16; TEMP 36.4; O2SAT 94
--- NOTE | 2020-06-11 14:13 | PCM.PN.BLA ---
Progress Note Afebrile Orthostatic vital signs were positive for orthostatic hypotension today. The pulse rate went from 59-73 when going from lying to standing and the blood pressure was 136/63 lying and 92/52 standing. He is maintaining appropriate oxygen saturation on room air. Good oral intake Lab today shows a hemoglobin of 12.4 with a high MCV at 95 and an elevated RDW standard deviation. Platelets are within normal limits. White blood cell count is normal. Sodium is 136 and the potassium is 4.1. BUN is 17 with a creatinine of 0.77 and a BUN/creatinine ratio of 22.2. LFTs are within normal limits. Albumin is low at 2.9. Globulin is high at 4.7. Anion gap is low at 4. Calcium corrected for hypoalbuminemia is 10.8 which is high. TSH was normal in September 2019. B12 was normal on 06/07/2020 and so was the folate. Looking back at old lab the hemoglobin has been low more often than not since May 2013. His biggest complaint today is pain in the right knee. He tells me that he had Synvisc approximately 20 years ago and this helped a lot. He has not had this in approximately 18 years. He also tells me that he has had cortisone injection in the past and that really did not help. The R patella is ballotable. There is no erythema of the right knee. The right knee is not warm to touch. He has pain with attempts to flex the knee joint. There is fullness in the right popliteal fossa. There is some bruising over the R knee. I did not appreciate any crepitus. Impressions 1. Debility secondary to recent fall resulting in fracture of the left nasal bone, bilateral wrists and left patella. Unclear why he fell. 2. Orthostatic hypotension which may be the etiology of his fall 3. Right knee pain 4. Hypercalcemia 5. Chronic anemia since 2012 with increased calcium and demineralized bone on plain Xrays of the wrists - on no calcium or vitamin D supplements - etiology? 6. thrombocytopenia - chronic but normal today? serum and urine protein electrophoresis PTH needs a DEXA post [place] to assess for bone loss Xrays of the R knee to r/o fracture Hold Lisinopril and recheck orthostatic VS in the AM He would like a referral to a adult education professional at [place]. He has been diagnosed with psoriatic arthritis and RA by Dr. Akbar - not on any meds Inpatient E&M: 42187 Subs Hosp L2
--- NOTE | 2020-06-11 15:05 | RAD_ITS ---
STUDY: X-RAY - RIGHT KNEE REASON FOR EXAM: Male, 85 years old. right knee pain after fall TECHNIQUE: 3 view(s) of the knee. COMPARISON: None. FINDINGS: Small crescentic focus of calcium at the proximal and lateral aspect of the medial femoral condyle is likely related to capsular calcification or perhaps calcification of the adjacent ligament. Normal visualized distal femur. Normal visualized proximal tibia and fibula. Normal proximal tibiofibular articulation. There is no demonstrated fracture. Normal medial femorotibial compartment. Normal lateral femorotibial compartment. Normal patellofemoral articulation. There is a soft tissue prominence in the suprapatellar region suggesting a small volume joint effusion. There are atherosclerotic calcifications. RAD/Knee 3 Views IMPRESSION: 1. Small joint effusion. Capsular or ligamentous calcification adjacent to the medial femoral condyle. Electronically Signed: Luis Paul MD at 16:59 EDT , Service support ,
[2020-06-11 15:35] LABS: Immature Platelet Fraction 8.5 % (1.0-7.9); Platelet Count 151 K/mm3 (150-450); RET-HE 33.1 pg (30-35); Reticulocyte Count 1.45 % (0.5-1.5)
[2020-06-11 15:39] LABS: Uric Acid 3.6 mg/dL (3.5-7.2)
[2020-06-11] MEDS: Arthritis Pain Compound 60 CLICK TUBE TOPICAL (19:55)
[2020-06-11 20:00] VITALS: BP 115/59; PULSE 58; RESP 16; TEMP 36.4; O2SAT 95
[2020-06-11] MEDS: Atorvastatin Calcium 20 MG Tablet PO (20:14)
[2020-06-11] MEDS: Magnesium Chloride 64 MG Delay Rel.Tablet 320 MG PO (20:14)
[2020-06-11] MEDS: Senna/Docusate Sodium 1 Tablet 2 TABLET PO (20:15)
[2020-06-11] MEDS: Latanoprost 0.005% 1 Bottle 1 DRP EACH EYE (20:21)
[2020-06-12] MEDS: oxyCODONE 5 MG Tablet PO ×2 (01:08→07:36)
--- NOTE | 2020-06-12 04:48 | NURSING ---
Reviewed and agree with THREADING MACHINE OPERATOR documentation and charting
[2020-06-12] MEDS: Enoxaparin 40 MG/0.4 ML Syringe SC (05:55)
[2020-06-12 06:34] VITALS: O2SAT 95
[2020-06-12] MEDS: BRIMONIDINE 0.15% 5 ML Bottle 1 DRP EACH EYE ×2 (07:37→20:09)
[2020-06-12] MEDS: Aspirin E.C. 81 MG Tablet PO (07:44)
[2020-06-12] MEDS: Multivitamins,Therapeutic Tablet 1 TABLET PO ×2 (07:44→16:45)
[2020-06-12] MEDS: Calcium Carb/Vitamin D 1 TABLET Tablet PO (07:44)
[2020-06-12] MEDS: Ursodiol 250 MG Tablet 500 MG PO ×2 (07:50→16:45)
[2020-06-12] MEDS: Finasteride 5 MG Tablet PO (07:51)
[2020-06-12] MEDS: Clopidogrel Bisulfate 75 MG Tablet PO (07:51)
[2020-06-12] MEDS: Ezetimibe 10 MG Tablet PO (07:52)
[2020-06-12 08:31] LABS: PTHIN 36.5 pg/mL (18.4-80.1)
[2020-06-12 09:31] VITALS: BP 116/60; PULSE 54; RESP 18; TEMP 37; O2SAT 96
--- NOTE | 2020-06-12 11:02 | CASEMGMT ---
Social Work IDT met with patient and for Team meeting. Discussed patient's progress in therapy. Pt is mid-max for sit to stands, ambulating 200ft with FWW at CGA, backing up 3 steps. Pt is wearing left knee immobilizer, and right knee tends to buckle. Pt is max for bathing, min for UE dressing, tot al for LE dressing, max for toileting tasks, CGA for toilet tx. Encouraging fluids and doing orthostatic PS, physician is adjusting meds. Pt is getting knee injection today on right side to assist with pain relief. Explained [employer] insurance with NRD 06/16, approved 06/18 and pt must continue to make progress. The goal is for pt to return home with at [facility]. Will ReTeam next week. Will continue to follow. SARAN Moreau BRACELET AND BROOCH MAKER
[2020-06-12] MEDS: Triamcinolone Acetonide 40 MG/ML Vial IM (15:12)
--- NOTE | 2020-06-12 15:22 | PCM.PN.BLA ---
Progress Note Hehas been afebrile since admission. XRAY of the right knee did not show any significant OA......he does have some calcification of the medial capsule vs the medial collateral ligament. Has decreased ROM with pain with flexion. There is no erythema and no increased warmth to touch. there is mild bruising over the patella and he likely fell on the R knee as well as the left. The right knee was cleansed with chlorhexidine and allowed to dry. The skin was locally infiltrated with 1% lidocaine. Using sterile technique 40 mg of Kenalog and 3 cc of lidocaine was injected into the right knee with no complication anterior inferior approach while he was in a seated with his legs dangling at 90 degrees. Al tolerated the procedure well. Upon re-examining the R knee he was better able to flex the knee with no knee pain. Inpatient E&M: 80131 Subs Hosp L1 Procedures: Other Procedure - See Report - R knee injection with Steroid and Lidocaine
[2020-06-12 19:24] VITALS: BP 119/60; PULSE 68; RESP 16; TEMP 36.9; O2SAT 95
[2020-06-12] MEDS: Magnesium Hydroxide 30 ML UDC PO (19:40)
[2020-06-12] MEDS: Magnesium Chloride 64 MG Delay Rel.Tablet 320 MG PO (20:11)
[2020-06-12] MEDS: Atorvastatin Calcium 20 MG Tablet PO (20:12)
[2020-06-12] MEDS: Latanoprost 0.005% 1 Bottle 1 DRP EACH EYE (20:13)
[2020-06-12 22:00] VITALS: PULSE 71; RESP 17
[2020-06-13 05:44] VITALS: BP 120/66; BP 128/65; BP 131/75; PULSE 58; PULSE 66
[2020-06-13] MEDS: Multivitamins,Therapeutic Tablet 1 TABLET PO ×2 (08:57→17:47)
[2020-06-13] MEDS: Ezetimibe 10 MG Tablet PO (08:57)
[2020-06-13] MEDS: Clopidogrel Bisulfate 75 MG Tablet PO (08:57)
[2020-06-13] MEDS: BRIMONIDINE 0.15% 5 ML Bottle 1 DRP EACH EYE ×2 (08:58→21:04)
[2020-06-13] MEDS: Aspirin E.C. 81 MG Tablet PO (08:59)
[2020-06-13] MEDS: Finasteride 5 MG Tablet PO (08:59)
[2020-06-13] MEDS: Ursodiol 250 MG Tablet 500 MG PO ×2 (09:00→17:47)
[2020-06-13 09:16] VITALS: BP 128/65; PULSE 58; RESP 16; TEMP 36.8; O2SAT 93
[2020-06-13 19:53] VITALS: BP 120/65; PULSE 51; RESP 16; TEMP 36.4; O2SAT 97
[2020-06-13] MEDS: Latanoprost 0.005% 1 Bottle 1 DRP EACH EYE (21:02)
[2020-06-13] MEDS: Atorvastatin Calcium 20 MG Tablet PO (21:03)
[2020-06-13] MEDS: Magnesium Chloride 64 MG Delay Rel.Tablet 320 MG PO (21:03)
[2020-06-13] MEDS: Arthritis Pain Compound 60 CLICK TUBE TOPICAL (21:03)
[2020-06-14 05:14] VITALS: BP 103/61; BP 125/71; BP 130/78; PULSE 55; PULSE 56; PULSE 66
[2020-06-14] MEDS: BRIMONIDINE 0.15% 5 ML Bottle 1 DRP EACH EYE ×2 (07:52→20:57)
[2020-06-14] MEDS: Ursodiol 250 MG Tablet 500 MG PO ×2 (07:53→16:16)
[2020-06-14] MEDS: Aspirin E.C. 81 MG Tablet PO (07:54)
[2020-06-14] MEDS: Ezetimibe 10 MG Tablet PO (07:54)
[2020-06-14] MEDS: Multivitamins,Therapeutic Tablet 1 TABLET PO ×2 (07:55→16:16)
[2020-06-14] MEDS: Clopidogrel Bisulfate 75 MG Tablet PO (07:55)
[2020-06-14] MEDS: Finasteride 5 MG Tablet PO (07:56)
[2020-06-14 10:00] VITALS: BP 128/73; PULSE 53; RESP 16; TEMP 36.7; O2SAT 96
[2020-06-14 19:30] VITALS: BP 112/56; PULSE 50; RESP 18; TEMP 36.5; O2SAT 96
[2020-06-14] MEDS: Latanoprost 0.005% 1 Bottle 1 DRP EACH EYE (20:53)
[2020-06-14] MEDS: Atorvastatin Calcium 20 MG Tablet PO (20:56)
[2020-06-14] MEDS: Magnesium Chloride 64 MG Delay Rel.Tablet 320 MG PO (20:56)
[2020-06-14 22:00] VITALS: PULSE 56; RESP 16
[2020-06-15] MEDS: Senna/Docusate Sodium 1 Tablet 2 TABLET PO (05:48)
[2020-06-15] MEDS: BRIMONIDINE 0.15% 5 ML Bottle 1 DRP EACH EYE ×2 (08:09→21:15)
[2020-06-15] MEDS: Clopidogrel Bisulfate 75 MG Tablet PO (08:10)
[2020-06-15] MEDS: Ezetimibe 10 MG Tablet PO (08:10)
[2020-06-15] MEDS: Multivitamins,Therapeutic Tablet 1 TABLET PO ×2 (08:10→15:48)
[2020-06-15] MEDS: Ursodiol 250 MG Tablet 500 MG PO ×2 (08:10→15:48)
[2020-06-15] MEDS: Finasteride 5 MG Tablet PO (08:11)
[2020-06-15] MEDS: Aspirin E.C. 81 MG Tablet PO (08:11)
[2020-06-15 10:00] VITALS: BP 145/76; PULSE 56; RESP 16; TEMP 36.6; O2SAT 97
--- NOTE | 2020-06-15 11:06 | PCA ---
this manager inspection took pt for a walk then he did the new step and he's a arm exercises and returned to his room
--- NOTE | 2020-06-15 17:34 | NURSING ---
Mod assist x1 for patient to get from seated to standing position. Once up, he is a SBA. Patient needs mod assist for pulling pants up and down. Total assist for charlse care and after toileting needs.
[2020-06-15 18:55] VITALS: BP 132/66; PULSE 61; RESP 18; TEMP 36.4; O2SAT 96
[2020-06-15] MEDS: Latanoprost 0.005% 1 Bottle 1 DRP EACH EYE (21:17)
[2020-06-15] MEDS: Atorvastatin Calcium 20 MG Tablet PO (21:18)
[2020-06-15] MEDS: Magnesium Chloride 64 MG Delay Rel.Tablet 320 MG PO (21:18)
[2020-06-15 22:00] VITALS: RESP 16
[2020-06-16] MEDS: Aspirin E.C. 81 MG Tablet PO (07:57)
[2020-06-16] MEDS: Multivitamins,Therapeutic Tablet 1 TABLET PO ×2 (07:57→16:03)
[2020-06-16] MEDS: Ursodiol 250 MG Tablet 500 MG PO ×2 (07:57→16:03)
[2020-06-16] MEDS: Finasteride 5 MG Tablet PO (07:58)
[2020-06-16] MEDS: Clopidogrel Bisulfate 75 MG Tablet PO (07:58)
[2020-06-16] MEDS: Ezetimibe 10 MG Tablet PO (07:58)
[2020-06-16] MEDS: BRIMONIDINE 0.15% 5 ML Bottle 1 DRP EACH EYE ×2 (07:58→21:26)
[2020-06-16 08:33] VITALS: BP 139/67; PULSE 60; RESP 17; TEMP 36.8; O2SAT 95
--- NOTE | 2020-06-16 10:53 | PCM.PN.BLA ---
Progress Note Afebrile VSS Maintaining appropriate oxygen saturation on RA Oral intake is good Discussed with nursing - no problems that need addressed Reviewed the PT/OT notes - still requiring max assist with toileting but min assist with toilet transfer. Medication list reviewed. SPE and UPE are negative for an M spike Denies any pain in the R knee. Some pain in the left knee with ambulation - has been refusing the arthritic cream at times because he tells me the knee does not hurt. Using an AE for assistance in LB dressing and donning and doffing socks and shoes at S level. Has difficulty with the left foot due to the brace. Still needing assistance with hygiene post BM. Has stood for 9 min with no LOB and no UE support. Alert and oriented X3, NAD, sitting in the recliner at the bedside Lungs - CTA HRRR abd - soft and NT good ROM of the R knee with no complaint of pain some swelling of the Left knee.....no significant ankle edema Intact sensation in the fingers........has stiffness in the wrists Impressions 1. Debility due to a fall/Syncope? BL wrist fractures and Left patellar fx 2. R knee pain - no significant OA on XRAY. Much better after a steroid injection 3. orthostatic hypotension - etiology of the fall? OR is the fall due to multisensory deficit? 4. thrombocytopenia - resolved 5. Anemia - etiology? no M spike. Check a hemoccult stool Continue therapy Encouraged him to use the arthritic cream TID so he is not uncomfortable with therapy Recheck orthostatic in the AM STROKE Vital Signs/Narrative: Vital Signs Temp Pulse Resp BP Pulse Ox 06/16/20 08:33 98.2 F 60 17 139/67 H 95 Inpatient E&M: 16540 Subs Hosp L2
[2020-06-16 16:08] LABS: PROEL- A/G Ratio 0.7 (0.7-1.7); PROEL- Albumin 3.1 g/dL (2.9-4.4); PROEL- Alpha-1 Globulin 0.4 g/dL (0.0-0.4); PROEL- Gamma Globulin 1.8 g/dL (0.4-1.8); PROEL- Globulin, Total 4.2 g/dL (2.2-3.9); PROEL- TOTAL PROTEIN 7.3 g/dL (6.0-8.5); PROELU- Albumin, Urine 32.2 % (.); PROELU- Alpha-2-Globulin,Ur 18.5 % (.); PROELU- Beta Globulin, Ur 28.1 % (.); PROELU- Gamma Globulin, Ur 17.3 % (.); Total Protein, Ur 15.3 mg/dL (Not Estab.)
[2020-06-16 19:24] VITALS: BP 123/70; PULSE 59; RESP 16; TEMP 37; O2SAT 97
[2020-06-16] MEDS: Senna/Docusate Sodium 1 Tablet 2 TABLET PO (21:26)
[2020-06-16] MEDS: Arthritis Pain Compound 60 CLICK TUBE TOPICAL (21:27)
[2020-06-16] MEDS: Magnesium Chloride 64 MG Delay Rel.Tablet 320 MG PO (21:28)
[2020-06-16] MEDS: Atorvastatin Calcium 20 MG Tablet PO (21:28)
[2020-06-16] MEDS: Latanoprost 0.005% 1 Bottle 1 DRP EACH EYE (21:28)
[2020-06-16 22:00] VITALS: RESP 17
[2020-06-17] MEDS: Senna/Docusate Sodium 1 Tablet 2 TABLET PO (04:37)
--- NOTE | 2020-06-17 04:45 | PCA ---
this QUAHOGGER collected stool sample on patient at 04:34 a.m. Tube system down so brew house supervisor Mali came at 5:15 to transport to lab
[2020-06-17 06:30] VITALS: BP 116/70; BP 122/67; BP 123/70; PULSE 51; PULSE 57; PULSE 73
[2020-06-17] MEDS: BRIMONIDINE 0.15% 5 ML Bottle 1 DRP EACH EYE ×2 (08:20→20:59)
[2020-06-17] MEDS: Finasteride 5 MG Tablet PO (08:21)
[2020-06-17] MEDS: Clopidogrel Bisulfate 75 MG Tablet PO (08:21)
[2020-06-17] MEDS: Ursodiol 250 MG Tablet 500 MG PO ×2 (08:21→17:26)
[2020-06-17] MEDS: Ezetimibe 10 MG Tablet PO (08:21)
[2020-06-17] MEDS: Arthritis Pain Compound 60 CLICK TUBE TOPICAL (08:21)
[2020-06-17] MEDS: Aspirin E.C. 81 MG Tablet PO (08:21)
[2020-06-17] MEDS: Multivitamins,Therapeutic Tablet 1 TABLET PO ×2 (08:21→17:26)
[2020-06-17 08:50] VITALS: BP 122/67; PULSE 57; RESP 16; TEMP 36.6; O2SAT 97
[2020-06-17 10:33] VITALS: BP 116/70; BP 122/67; BP 123/70; PULSE 51; PULSE 57; PULSE 73
--- NOTE | 2020-06-17 14:20 | PN_ITS ---
Progress Note Orthostatic vital signs are negative today and the patient denies lightheadedness. He denies any pain at the current time. Vital signs are stable. Denies abdominal pain. He does tell me that he had 12 inches of his colon removed in the past secondary to a dysplastic polyp. His last colonoscopy was 4 years ago and there were no polyps at that time. Hemoccult stool sent yesterday was positive. Ferritin was recently 73 in April. TSH was normal in September or 2019 Alert, oriented x3, sitting in the recliner at the bedside. Pleasant, a ppropriate, appears in no acute distress. Mucous membranes are moist Lungs - CTA HRRR no edema of the R knee today and he denies pain....has not had Oxycodone since 06/12/20 No calf pain on the left.....He was on the NuStep today Impressions 1. debility due to recent fall resulting in BL wrist fractures and fx of the left patella 2. bradycardia - normal TSH in September. Not on a beta marilee. Alphagan P can cause bradycardia but in < 1% of patients. 3. Orthostatic hypotension - resolved with discontinuation of Lisinopril 4. Heme + stool 5. hx of colon CA/dysplastic polyp Check the HR after exertion and the BP...if it does not increase then get a EKG. Orthostatics in the AM Check iron studies and a folate level. B12 was normal in April. STROKE Vital Signs/Narrative: Vital Signs Pulse Pulse Pulse BP BP BP 06/17/20 10:33 57 L 51 L 73 122/67 H 123/70 H 116/70
[2020-06-17] MEDS: Atorvastatin Calcium 20 MG Tablet PO (20:59)
[2020-06-17] MEDS: Magnesium Chloride 64 MG Delay Rel.Tablet 320 MG PO (20:59)
[2020-06-17 21:00] VITALS: BP 122/65; PULSE 51; RESP 16; RESP 18; TEMP 36.8; O2SAT 96
[2020-06-17] MEDS: Latanoprost 0.005% 1 Bottle 1 DRP EACH EYE (21:04)
--- NOTE | 2020-06-18 01:28 | NURSING ---
reviewed and agree with charting
[2020-06-18] MEDS: Loratadine 10 MG Tablet PO (05:06)
[2020-06-18 07:30] VITALS: BP 134/73; PULSE 50; RESP 16; TEMP 37; O2SAT 95
[2020-06-18] MEDS: Ezetimibe 10 MG Tablet PO (08:25)
[2020-06-18] MEDS: Ursodiol 250 MG Tablet 500 MG PO ×2 (08:25→18:00)
[2020-06-18] MEDS: Aspirin E.C. 81 MG Tablet PO (08:25)
[2020-06-18] MEDS: Clopidogrel Bisulfate 75 MG Tablet PO (08:25)
[2020-06-18] MEDS: Multivitamins,Therapeutic Tablet 1 TABLET PO ×2 (08:25→18:00)
[2020-06-18] MEDS: Finasteride 5 MG Tablet PO (08:25)
[2020-06-18] MEDS: BRIMONIDINE 0.15% 5 ML Bottle 1 DRP EACH EYE ×2 (08:25→19:51)
[2020-06-18] MEDS: Arthritis Pain Compound 60 CLICK TUBE TOPICAL ×2 (08:26→19:50)
[2020-06-18] MEDS: Acetaminophen 325 MG Tablet 650 MG PO ×2 (08:26→19:51)
[2020-06-18 08:54] VITALS: PULSE 50
[2020-06-18 11:17] LABS: Iron 29 ug/dL (65-175); Iron Binding Capacity,Total 272 ug/dL (250-450); PERCENT IRON SATURATION 10.7 % (15.0-55.0)
[2020-06-18 12:50] VITALS: BP 140/72; PULSE 68
[2020-06-18 19:45] VITALS: BP 103/53; PULSE 56; RESP 18; TEMP 36.7; O2SAT 97
[2020-06-18] MEDS: Magnesium Chloride 64 MG Delay Rel.Tablet 320 MG PO (19:51)
[2020-06-18] MEDS: Atorvastatin Calcium 20 MG Tablet PO (19:51)
[2020-06-18] MEDS: Latanoprost 0.005% 1 Bottle 1 DRP EACH EYE (19:52)
[2020-06-18] MEDS: Senna/Docusate Sodium 1 Tablet 2 TABLET PO (19:58)
--- NOTE | 2020-06-19 00:54 | NURSING ---
pt noted to have nasal congestion and deepening of voice and intermittent dry hacking type cough . pt asking to use ventolin MDI x's 2 this hs. pt reports that his throat is scratchy but denied it being sore. pt has been afebrile . rn made aware. pt took prn claritin yesterday am. pt reports that his asthma is acting up
[2020-06-19] MEDS: Acetaminophen 325 MG Tablet 650 MG PO ×2 (06:01→21:44)
[2020-06-19] MEDS: Loratadine 10 MG Tablet PO (06:01)
[2020-06-19] MEDS: BRIMONIDINE 0.15% 5 ML Bottle 1 DRP EACH EYE ×2 (07:47→21:36)
[2020-06-19] MEDS: Aspirin E.C. 81 MG Tablet PO (07:48)
[2020-06-19] MEDS: Arthritis Pain Compound 60 CLICK TUBE TOPICAL ×2 (07:48→21:38)
[2020-06-19] MEDS: Ursodiol 250 MG Tablet 500 MG PO ×2 (07:48→17:11)
[2020-06-19] MEDS: Multivitamins,Therapeutic Tablet 1 TABLET PO ×2 (07:48→17:11)
[2020-06-19] MEDS: Ezetimibe 10 MG Tablet PO (07:49)
[2020-06-19] MEDS: Clopidogrel Bisulfate 75 MG Tablet PO (07:49)
[2020-06-19] MEDS: Finasteride 5 MG Tablet PO (07:49)
[2020-06-19 08:43] VITALS: BP 145/75; PULSE 57; RESP 18; TEMP 36.8; O2SAT 97
--- NOTE | 2020-06-19 13:03 | CASEMGMT ---
Social Work IDT met with patient and for Team meeting. Discussed patient's progress in therapy. Pt is min-CGA for transfers from lower surfaces, but SBA for higher surfaces. Pt is ambulating 250 ft on multiple surfaces with FWW at SBA, completing steps backwards at CGA, min for shower tx, mod for bathing, set up for UE dressing, mod for LE dressing. can assist with LE care at home. Pt and IDT requesting at another week to continue to improve and have a safe DC to home. PT would like [facility] then transition to OP therapy. Explained [employer] NRD 06/23 and continued stay is not guaranteed. Will continue to follow. Dorcas Velazquez, PHYSICIAN GYNECOLOGIST PRISON CLASSIFICATION COUNSELOR
--- NOTE | 2020-06-19 14:12 | PCM.PN.BLA ---
Progress Note Anival was seen on team rounds today. His was present for rounds and her questions were answered. Afebrile Vital signs stable Maintaining appropriate oxygen saturation on room air Good oral intake No problems reported by nursing Reviewed PT/OT notes Lab was personally reviewed. The iron studies are consistent with iron deficiency. Ferritin is 73 with an low serum iron at 29 and a low iron saturation at 10.7. Folate is normal. L denies pain in his right knee today. He has not had any narcotics since 06/12/2020. He is taking as needed Tylenol for pain control. Alert, oriented x3, sitting in the recliner at the bedside, no apparent distress Lungs-clear to auscultation Heart-regular rate and rhythm Abdomen-soft, nontender, nondistended Some edema of the left knee but no left ankle edema and the edema in the right knee has decreased since the steroid injection. Impressions 1. Debility secondary to fall/syncope?. 2. Left patella fracture and bilateral wrist fractures. No surgical intervention required 3. Orthostatic hypotension-much improved with discontinuation of lisinopril. Anival denies lightheadedness now. 4. Right knee strain secondary to fall-pain markedly improved after a Kenalog injection 5. Anemia-secondary to iron deficiency 6. Hemoccult positive stool in a patient with a history of dysplastic or malignant polyp. He is status post partial colectomy. He says tht the last time he saw his hollow core door frame assembler he was told he would no longer need colonoscopies but, He now has heme + stools and iron deficiency anemia and I feel he should have endoscopy. Supplement iron He has no nausea and no epigastric pain. No need for a PPI or H2 marilee at this time. recheck the HGB in 1 week. Inpatient E&M: 91261 Subs Hosp L2
[2020-06-19 16:08] LABS: Folate, RBC (Hct) Test 42.7 % (37.5-51.0)
[2020-06-19 17:40] LABS: Folates, RBC Test 1042 ng/mL (>498)
[2020-06-19] MEDS: Magnesium Chloride 64 MG Delay Rel.Tablet 320 MG PO (21:37)
[2020-06-19] MEDS: Senna/Docusate Sodium 1 Tablet 2 TABLET PO (21:37)
[2020-06-19] MEDS: Atorvastatin Calcium 20 MG Tablet PO (21:37)
[2020-06-19] MEDS: Latanoprost 0.005% 1 Bottle 1 DRP EACH EYE (21:38)
[2020-06-19 22:00] VITALS: BP 129/68; PULSE 67; RESP 18; TEMP 36.6; O2SAT 97
[2020-06-20] MEDS: Acetaminophen 325 MG Tablet 650 MG PO ×3 (06:55→21:46)
[2020-06-20 07:37] VITALS: BP 147/50; PULSE 65; RESP 18; TEMP 36.4; O2SAT 95
[2020-06-20] MEDS: BRIMONIDINE 0.15% 5 ML Bottle 1 DRP EACH EYE ×2 (07:42→21:44)
[2020-06-20] MEDS: Ursodiol 250 MG Tablet 500 MG PO ×2 (07:43→17:21)
[2020-06-20] MEDS: Finasteride 5 MG Tablet PO (07:43)
[2020-06-20] MEDS: Multivitamins,Therapeutic Tablet 1 TABLET PO ×2 (07:44→17:21)
[2020-06-20] MEDS: Clopidogrel Bisulfate 75 MG Tablet PO (07:44)
[2020-06-20] MEDS: Ezetimibe 10 MG Tablet PO (07:45)
[2020-06-20] MEDS: Aspirin E.C. 81 MG Tablet PO (07:46)
[2020-06-20] MEDS: Arthritis Pain Compound 60 CLICK TUBE TOPICAL ×2 (07:50→21:45)
[2020-06-20] MEDS: Magnesium Chloride 64 MG Delay Rel.Tablet 320 MG PO (21:45)
[2020-06-20] MEDS: Atorvastatin Calcium 20 MG Tablet PO (21:45)
[2020-06-20] MEDS: Latanoprost 0.005% 1 Bottle 1 DRP EACH EYE (21:46)
[2020-06-20] MEDS: Senna/Docusate Sodium 1 Tablet 2 TABLET PO (21:47)
[2020-06-20 22:00] VITALS: BP 127/72; PULSE 55; RESP 17; TEMP 36.8; O2SAT 98
[2020-06-21] MEDS: Acetaminophen 325 MG Tablet 650 MG PO ×3 (05:25→22:34)
[2020-06-21] MEDS: Loratadine 10 MG Tablet PO (07:41)
[2020-06-21] MEDS: Aspirin E.C. 81 MG Tablet PO (07:41)
[2020-06-21] MEDS: Multivitamins,Therapeutic Tablet 1 TABLET PO ×2 (07:42→16:19)
[2020-06-21] MEDS: Ursodiol 250 MG Tablet 500 MG PO ×2 (07:42→16:18)
[2020-06-21] MEDS: Arthritis Pain Compound 60 CLICK TUBE TOPICAL ×2 (07:42→20:42)
[2020-06-21] MEDS: Clopidogrel Bisulfate 75 MG Tablet PO (07:43)
[2020-06-21] MEDS: Finasteride 5 MG Tablet PO (07:43)
[2020-06-21] MEDS: BRIMONIDINE 0.15% 5 ML Bottle 1 DRP EACH EYE ×2 (07:43→20:41)
[2020-06-21] MEDS: Ezetimibe 10 MG Tablet PO (07:44)
[2020-06-21 09:01] VITALS: BP 121/80; PULSE 60; RESP 18; TEMP 36.8; O2SAT 97
[2020-06-21 19:35] VITALS: BP 135/66; PULSE 50; RESP 17; TEMP 36.9; O2SAT 97
[2020-06-21] MEDS: Atorvastatin Calcium 20 MG Tablet PO (20:42)
[2020-06-21] MEDS: Magnesium Chloride 64 MG Delay Rel.Tablet 320 MG PO (20:42)
[2020-06-21] MEDS: Latanoprost 0.005% 1 Bottle 1 DRP EACH EYE (20:43)
[2020-06-21] MEDS: Senna/Docusate Sodium 1 Tablet 2 TABLET PO (20:43)
[2020-06-22] MEDS: Loratadine 10 MG Tablet PO ×2 (05:33→09:56)
[2020-06-22] MEDS: Acetaminophen 325 MG Tablet 650 MG PO ×3 (05:33→21:51)
[2020-06-22] MEDS: Multivitamins,Therapeutic Tablet 1 TABLET PO ×2 (09:52→16:01)
[2020-06-22] MEDS: Ezetimibe 10 MG Tablet PO (09:53)
[2020-06-22] MEDS: Finasteride 5 MG Tablet PO (09:53)
[2020-06-22] MEDS: Aspirin E.C. 81 MG Tablet PO (09:53)
[2020-06-22] MEDS: Clopidogrel Bisulfate 75 MG Tablet PO (09:53)
[2020-06-22] MEDS: Ursodiol 250 MG Tablet 500 MG PO ×2 (09:56→16:01)
[2020-06-22] MEDS: Arthritis Pain Compound 60 CLICK TUBE TOPICAL ×2 (09:58→21:50)
[2020-06-22] MEDS: BRIMONIDINE 0.15% 5 ML Bottle 1 DRP EACH EYE ×2 (09:59→21:49)
[2020-06-22 10:00] VITALS: BP 119/68; PULSE 68; RESP 18; TEMP 36.4; O2SAT 95
--- NOTE | 2020-06-22 10:44 | NURSING ---
Pt ambulated to room and rode NuStep x15 minutes, pt ambulated hallways x1 lap with FWW standby assist. tolerated well.
--- NOTE | 2020-06-22 21:50 | NURSING ---
pt given education and demonstration on the use of a spacer with inhaler use. pt taught that at times all the medication does not enter the lungs and the spacer holds medication until it is all inhaled unlike when puff is administered straight into the mouth. pt does return demonstration and performs task alone with admin of inhaler at . pt states that he felt as though he got more of the medicine in his lungs with the use of the spacer. pt states and shows proper knowledge and demonstration of spacer use. will continue education of spacer as needed.
[2020-06-22] MEDS: Magnesium Chloride 64 MG Delay Rel.Tablet 320 MG PO (21:51)
[2020-06-22] MEDS: Latanoprost 0.005% 1 Bottle 1 DRP EACH EYE (21:51)
[2020-06-22] MEDS: Senna/Docusate Sodium 1 Tablet 2 TABLET PO (21:51)
[2020-06-22] MEDS: Atorvastatin Calcium 20 MG Tablet PO (21:51)
[2020-06-22 22:00] VITALS: BP 131/66; PULSE 53; RESP 18; TEMP 36.6; O2SAT 96
[2020-06-23] MEDS: Acetaminophen 325 MG Tablet 650 MG PO ×2 (05:42→22:05)
[2020-06-23] MEDS: Loratadine 10 MG Tablet PO (05:43)
[2020-06-23 07:00] VITALS: BP 139/73; PULSE 53; RESP 17; TEMP 36.4; O2SAT 96
[2020-06-23] MEDS: Ezetimibe 10 MG Tablet PO (08:02)
[2020-06-23] MEDS: Finasteride 5 MG Tablet PO (08:02)
[2020-06-23] MEDS: Multivitamins,Therapeutic Tablet 1 TABLET PO ×2 (08:02→17:53)
[2020-06-23] MEDS: Ursodiol 250 MG Tablet 500 MG PO ×2 (08:02→17:53)
[2020-06-23] MEDS: Aspirin E.C. 81 MG Tablet PO (08:02)
[2020-06-23] MEDS: Arthritis Pain Compound 60 CLICK TUBE TOPICAL ×2 (08:02→22:04)
[2020-06-23] MEDS: Clopidogrel Bisulfate 75 MG Tablet PO (08:02)
[2020-06-23] MEDS: BRIMONIDINE 0.15% 5 ML Bottle 1 DRP EACH EYE ×2 (08:03→22:03)
[2020-06-23] MEDS: Senna/Docusate Sodium 1 Tablet 2 TABLET PO (08:08)
--- NOTE | 2020-06-23 19:23 | PCM.PN.BLA ---
Progress Note Afebrile VSS Maintaining appropriate oxygen saturation on RA Oral intake is good Discussed with nursing - no problems that need addressed Reviewed the PT/OT/ST notes Medication list reviewed. Al states that he is doing well. His pain is adequately controlled with Tylenol and the arthritis compounded cream twice daily. He denies nausea/vomiting/epigastric pain/diarrhea. He has no history of peptic ulcer disease. He denies lightheadedness. Alert, Appropriate Mucous membranes are moist Lungs-clear to auscultation Heart-regular rate and rhythm, no gallop Abdomen-soft, nontender, nondistended, normal bowel sounds present No ankle edema No rashes and no skin breakdown No calf pain Impressions 1. iron deficiency anemia with heme + stool. Iron supplementation ordered. I also ordered a H2 marilee since he is on both ASA and Plavix. I am still concerned about recurrent colon CA.....he is going to get in contact with the corporate compliance officer that was seeing him while he had the colon resection and ask if he feels he needs endoscopy. 2. BL wrist fractures and fracture of the left patella 3. Thrombocytopenia-resolved 4. Hypomagnesemia CBC, BMP and magnesium in the a.m. Supplement iron and recheck the iron studies in 6 weeks. Ferritin is WNL but, Al has at least 2 autoimmune diseases that cause inflammation and ferritin is an acute phase reactant that increases with inflammation. The iron saturation is only 10% and this is low. Serum iron is also low Inpatient E&M: 11070 Subs Hosp L2
[2020-06-23 19:52] VITALS: BP 113/59; PULSE 64; RESP 18; TEMP 36.6; O2SAT 97
[2020-06-23] MEDS: Magnesium Chloride 64 MG Delay Rel.Tablet 320 MG PO (22:04)
[2020-06-23] MEDS: Atorvastatin Calcium 20 MG Tablet PO (22:04)
[2020-06-23] MEDS: Latanoprost 0.005% 1 Bottle 1 DRP EACH EYE (22:05)
[2020-06-24] MEDS: Acetaminophen 325 MG Tablet 650 MG PO (05:14)
[2020-06-24] MEDS: Loratadine 10 MG Tablet PO (05:15)
[2020-06-24] MEDS: Aspirin E.C. 81 MG Tablet PO (08:42)
[2020-06-24] MEDS: Ursodiol 250 MG Tablet 500 MG PO ×2 (08:43→18:01)
[2020-06-24] MEDS: Multivitamins,Therapeutic Tablet 1 TABLET PO ×2 (08:43→18:01)
[2020-06-24] MEDS: Arthritis Pain Compound 60 CLICK TUBE TOPICAL ×2 (08:45→22:14)
[2020-06-24] MEDS: BRIMONIDINE 0.15% 5 ML Bottle 1 DRP EACH EYE ×2 (08:46→22:15)
[2020-06-24] MEDS: Clopidogrel Bisulfate 75 MG Tablet PO (08:46)
[2020-06-24] MEDS: Ezetimibe 10 MG Tablet PO (08:47)
[2020-06-24] MEDS: Finasteride 5 MG Tablet PO (08:47)
[2020-06-24 09:06] VITALS: BP 116/68; PULSE 50; RESP 18; TEMP 36.3; O2SAT 99
[2020-06-24] MEDS: Sodium Ferric Gluconat 250 MG in 0.9% Normal Saline 250 ML 135 MG IV (11:41)
[2020-06-24] MEDS: 0.9% Saline Lock 10 ML Syringe IV (11:50)
[2020-06-24] MEDS: Ferrous Sulfate 325 MG Tablet PO (11:51)
[2020-06-24 21:05] VITALS: BP 111/68; PULSE 49; RESP 18; TEMP 36.3; O2SAT 98
[2020-06-24] MEDS: Magnesium Chloride 64 MG Delay Rel.Tablet 320 MG PO (22:13)
[2020-06-24] MEDS: Latanoprost 0.005% 1 Bottle 1 DRP EACH EYE (22:14)
[2020-06-24] MEDS: Atorvastatin Calcium 20 MG Tablet PO (22:14)
[2020-06-25] MEDS: Acetaminophen 325 MG Tablet 650 MG PO (05:05)
--- NOTE | 2020-06-25 05:08 | NURSING ---
Tylenol prn provided for neck pain of 2/10 to premedicate for therapy, per pt request.
[2020-06-25 05:40] LABS: Mean Corp Hgb Conc 31.6 g/dL (32-36); Mean Corpuscular Hgb 31.2 pg (27.0-32.0); Mean Corpuscular Volume 98.7 fL (80-94); Mean Platelet Vol. 9.5 fl (6.2-12.0); Platelet Count 195 K/mm3 (150-450); RBC Distribution Width CV 13.6 % (11.6-14.6); RBC Distribution Width SD 49.8 fl (35.1-43.9); Red Blood Count 3.85 M/mm3 (4.6-6.2); White Blood Count 6.4 K/mm3 (4.4-11.0)
[2020-06-25 05:49] LABS: International Normalized Ratio 1.1; Prothrombin Time (Protime)PT. 13.2 SECONDS (11.7-14.9)
[2020-06-25 05:53] LABS: Anion Gap 2 (5-15); BUN 16 mg/dL (7-18); BUN/Creat Ratio 22.7 RATIO (10-20); Calcium,Total 8.8 mg/dL (8.5-10.1); Chloride 102 mmol/L (98-107); Creatinine, Serum 0.71 mg/dL (0.70-1.30); EST Glomerular Filtration Rate 113 mL/min (>60); Est Glom Filt Rate - Afr Amer 137 mL/min (>60); Estimated Creatinine Clearance 61.43 ml/min; Glucose 98 mg/dL (74-106); Magnesium 2.3 mg/dL (1.6-2.6); Potassium 4.2 mmol/L (3.5-5.1); Sodium Level 135 mmol/L (136-145)
[2020-06-25] MEDS: Arthritis Pain Compound 60 CLICK TUBE TOPICAL ×2 (08:07→20:52)
[2020-06-25] MEDS: Multivitamins,Therapeutic Tablet 1 TABLET PO ×2 (08:08→18:46)
[2020-06-25] MEDS: Aspirin E.C. 81 MG Tablet PO (08:08)
[2020-06-25] MEDS: Ursodiol 250 MG Tablet 500 MG PO ×2 (08:08→18:46)
[2020-06-25] MEDS: BRIMONIDINE 0.15% 5 ML Bottle 1 DRP EACH EYE ×2 (08:08→20:48)
[2020-06-25] MEDS: Famotidine 20 MG Tablet 40 MG PO (08:09)
[2020-06-25] MEDS: Ezetimibe 10 MG Tablet PO (08:09)
[2020-06-25] MEDS: Clopidogrel Bisulfate 75 MG Tablet PO (08:09)
[2020-06-25] MEDS: Finasteride 5 MG Tablet PO (08:09)
[2020-06-25 09:23] VITALS: BP 112/60; PULSE 52; RESP 18; TEMP 36.5; O2SAT 98
[2020-06-25 09:51] VITALS: O2SAT 98
--- NOTE | 2020-06-25 10:35 | PCM.PN.BLA ---
Progress Note Afebrile Heart rate has ranged from 49-64 over the past 3 days. TSH and T4 were both within normal limits in September 2019. It may be the medication for glaucoma that is causing bradycardia. He is asymptomatic and the HR does increase with exertion so it is not currently a problem. Maintaining appropriate oxygen saturation on room air Excellent oral intake No problems per nursing Patient was approved for another week in acute rehab. All lab was personally reviewed. Hemoglobin is 12 today and the WBC and platelet counts are within normal limits. PT is normal. Sodium is mildly decreased at 135 and potassium is 4.2. BUN is 16 with a creatinine of 0.71 which is stable. Magnesium is normal at 2.3 Tolerated 200 mg of iron sucrose intravenously yesterday with no side effect. Pain is well controlled. He is improving in therapy and he would like to go home on Tuesday. Alert, pleasant, appropriate Lungs-clear to auscultation with good air exchange Heart-regular with bradycardia, no gallop Abdomen-soft, nontender, nondistended, bowel sounds heard No significant ankle edema No calf tenderness No rashes and no skin breakdown Impressions 1. Physical debility secondary to recent left patella fracture and bilateral wrist fractures due to a fall, possibly secondary to orthostatic hypotension 2. Orthostatic hypotension-resolved with discontinuation of lisinopril 3. Glaucoma-I suspect it is 1 of his eye drops that is causing the bradycardia 4. Sinus bradycardia 5. 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 BPH-no urine retention on Proscar 5 mg daily Al talk to his route delivery service driver who would like us to send him copies of labs and a discharge summary. Al has already scheduled an appointment to be seen. STROKE Vital Signs/Narrative: Vital Signs Temp Pulse Resp BP Pulse Ox 06/25/20 09:51 98 06/25/20 09:23 97.7 F L 52 L 18 112/60 98 Inpatient E&M: 59359 Subs Hosp L2
[2020-06-25] MEDS: Sodium Ferric Gluconat 250 MG in 0.9% Normal Saline 250 ML 135 MG IV (11:07)
[2020-06-25] MEDS: Ferrous Sulfate 325 MG Tablet PO (11:13)
[2020-06-25] MEDS: Senna/Docusate Sodium 1 Tablet 2 TABLET PO (20:48)
[2020-06-25] MEDS: Magnesium Chloride 64 MG Delay Rel.Tablet 320 MG PO (20:48)
[2020-06-25] MEDS: INHALER, ASSIST DEVICES 1 EACH SPACER INHALATION (20:49)
[2020-06-25] MEDS: Latanoprost 0.005% 1 Bottle 1 DRP EACH EYE (20:49)
[2020-06-25] MEDS: Atorvastatin Calcium 20 MG Tablet PO (20:49)
[2020-06-25 20:56] VITALS: BP 109/68; PULSE 60; RESP 16; TEMP 36.6; O2SAT 96
[2020-06-26] MEDS: BRIMONIDINE 0.15% 5 ML Bottle 1 DRP EACH EYE ×2 (08:35→21:37)
[2020-06-26] MEDS: Multivitamins,Therapeutic Tablet 1 TABLET PO ×2 (08:35→16:24)
[2020-06-26] MEDS: Ursodiol 250 MG Tablet 500 MG PO ×2 (08:35→16:24)
[2020-06-26] MEDS: Aspirin E.C. 81 MG Tablet PO (08:35)
[2020-06-26] MEDS: Finasteride 5 MG Tablet PO (08:36)
[2020-06-26] MEDS: Famotidine 20 MG Tablet 40 MG PO (08:36)
[2020-06-26] MEDS: Ezetimibe 10 MG Tablet PO (08:36)
[2020-06-26] MEDS: Clopidogrel Bisulfate 75 MG Tablet PO (08:36)
[2020-06-26] MEDS: Arthritis Pain Compound 60 CLICK TUBE TOPICAL ×2 (08:36→21:37)
[2020-06-26 09:36] VITALS: BP 126/65; PULSE 53; RESP 16; TEMP 35.9; O2SAT 98
--- NOTE | 2020-06-26 11:56 | PCM.PN.BLA ---
Progress Note Anival was seen on team rounds today and his Marlene was present for rounds. Afebrile VSS Maintaining appropriate oxygen saturation on RA Oral intake is good Discussed with nursing - no problems that need addressed Reviewed the PT/OT notes -he is doing well and after discussion with the therapists we will feel he is ready for discharge. He would like to be discharged on Tuesday so that he can attend a birthday democrat. He feels good about going home and feels he is ready. Medication list reviewed. Denies nausea, vomiting, epigastric pain, diarrhea, constipation, chest pain, shortness of breath, pruritus. Alert, no apparent distress Mucous membranes are moist with no mucosal lesions Lungs-clear to auscultation Heart-mild bradycardia with a normal rhythm. No murmurs, no gallop, no rub. Abdomen-soft, nondistended, nontender to palpation, normal bowel sounds No peripheral edema No calf tenderness No rashes, abrasions are healing on his knees Impressions 1. Debility secondary to a recent fall resulting in bilateral wrist fractures, left patella fracture and fracture of the left nasal bone 2. Orthostatic hypotension-resolved with discontinuation of lisinopril 3. Right knee pain secondary to a fall. X-ray negative for fracture. Resolved with an injection of Kenalog. 4. Chronic anemia 5. Iron deficiency 6. Psoriasis Continue therapy Plan discharge for 06/29/2020 We will follow-up with Dr. Carrero, Dr. Manuel Logan and continue iron supplement and vitamin C Pain is controlled with arthritis pain cream and Acetaminophen. STROKE Vital Signs/Narrative: Vital Signs Temp Pulse Resp BP Pulse Ox 06/26/20 09:36 96.7 F L 53 L 16 126/65 H 98 Inpatient E&M: 48347 Subs Hosp L2
[2020-06-26] MEDS: Ferrous Sulfate 325 MG Tablet PO (12:14)
--- NOTE | 2020-06-26 13:56 | CASEMGMT ---
Social Work IDT met with patient and for Team meeting. Discussed patient's progress in therapy. Pt is SBA for transfers, ambulating 300ft FWW SBA, practice mechanics of steps at CGA, supervised for UE dressing, needs help with brace, mod for bathing, min for LE dressing, mod for toileting. is able to assist at home. Pt requesting to DC 06/29 - IDT agreeable. PT requesting [facility]. Referral made for PT/OT/SN. No DME needs. Plan: DC home with 06/29 with [facility] PT/OT/SN Dorcas Velazquez, MARBLE POLISHER HAND SCORER HELPER
--- NOTE | 2020-06-26 14:23 | NURSING ---
iv discontinued at this time. IV iron completed and pt states positional discomfort of iv. iv post site intact. no s/sx of infection noted. pt tolerated well.
[2020-06-26 21:31] VITALS: BP 119/67; PULSE 56; RESP 18; TEMP 37.2; O2SAT 97
[2020-06-26] MEDS: INHALER, ASSIST DEVICES 1 EACH SPACER INHALATION (21:36)
[2020-06-26] MEDS: Latanoprost 0.005% 1 Bottle 1 DRP EACH EYE (21:36)
[2020-06-26] MEDS: Atorvastatin Calcium 20 MG Tablet PO (21:37)
[2020-06-26] MEDS: Magnesium Chloride 64 MG Delay Rel.Tablet 320 MG PO (21:38)
[2020-06-27] MEDS: INHALER, ASSIST DEVICES 1 EACH SPACER INHALATION ×2 (05:05→21:00)
[2020-06-27] MEDS: BRIMONIDINE 0.15% 5 ML Bottle 1 DRP EACH EYE ×2 (08:12→21:00)
[2020-06-27] MEDS: Ursodiol 250 MG Tablet 500 MG PO ×2 (08:12→17:35)
[2020-06-27] MEDS: Aspirin E.C. 81 MG Tablet PO (08:12)
[2020-06-27] MEDS: Multivitamins,Therapeutic Tablet 1 TABLET PO ×2 (08:12→17:35)
[2020-06-27] MEDS: Ezetimibe 10 MG Tablet PO (08:13)
[2020-06-27] MEDS: Arthritis Pain Compound 60 CLICK TUBE TOPICAL ×2 (08:13→20:59)
[2020-06-27] MEDS: Famotidine 20 MG Tablet 40 MG PO (08:13)
[2020-06-27] MEDS: Finasteride 5 MG Tablet PO (08:13)
[2020-06-27] MEDS: Clopidogrel Bisulfate 75 MG Tablet PO (08:13)
[2020-06-27 09:35] VITALS: BP 129/73; PULSE 54; RESP 18; TEMP 36.4; O2SAT 95
[2020-06-27] MEDS: Ascorbic Acid 500 MG Tablet PO (11:30)
[2020-06-27] MEDS: Ferrous Sulfate 325 MG Tablet PO (11:30)
[2020-06-27 19:05] VITALS: BP 124/66; PULSE 56; RESP 16; TEMP 37.2; O2SAT 97
[2020-06-27] MEDS: Magnesium Chloride 64 MG Delay Rel.Tablet 320 MG PO (21:00)
[2020-06-27] MEDS: Latanoprost 0.005% 1 Bottle 1 DRP EACH EYE (21:01)
[2020-06-27] MEDS: Atorvastatin Calcium 20 MG Tablet PO (21:01)
[2020-06-28 07:14] VITALS: BP 124/73; PULSE 50; RESP 16; TEMP 36.4; O2SAT 95
[2020-06-28] MEDS: Arthritis Pain Compound 60 CLICK TUBE TOPICAL ×2 (07:54→20:12)
[2020-06-28] MEDS: Ursodiol 250 MG Tablet 500 MG PO ×2 (07:55→17:06)
[2020-06-28] MEDS: Clopidogrel Bisulfate 75 MG Tablet PO (07:55)
[2020-06-28] MEDS: Multivitamins,Therapeutic Tablet 1 TABLET PO ×2 (07:55→17:05)
[2020-06-28] MEDS: Aspirin E.C. 81 MG Tablet PO (07:55)
[2020-06-28] MEDS: Famotidine 20 MG Tablet 40 MG PO (07:55)
[2020-06-28] MEDS: BRIMONIDINE 0.15% 5 ML Bottle 1 DRP EACH EYE ×2 (07:56→20:09)
[2020-06-28] MEDS: Ezetimibe 10 MG Tablet PO (07:56)
[2020-06-28] MEDS: Finasteride 5 MG Tablet PO (07:56)
[2020-06-28] MEDS: Ascorbic Acid 500 MG Tablet PO (11:02)
[2020-06-28] MEDS: Ferrous Sulfate 325 MG Tablet PO (11:03)
[2020-06-28 19:57] VITALS: BP 131/63; PULSE 60; RESP 16; TEMP 36.6; O2SAT 96
[2020-06-28] MEDS: Latanoprost 0.005% 1 Bottle 1 DRP EACH EYE (20:09)
[2020-06-28] MEDS: Atorvastatin Calcium 20 MG Tablet PO (20:10)
[2020-06-28] MEDS: Magnesium Chloride 64 MG Delay Rel.Tablet 320 MG PO (20:10)
[2020-06-29] MEDS: BRIMONIDINE 0.15% 5 ML Bottle 1 DRP EACH EYE (08:38)
[2020-06-29] MEDS: Multivitamins,Therapeutic Tablet 1 TABLET PO (08:41)
[2020-06-29] MEDS: Ursodiol 250 MG Tablet 500 MG PO (08:41)
[2020-06-29] MEDS: Aspirin E.C. 81 MG Tablet PO (08:41)
[2020-06-29] MEDS: Finasteride 5 MG Tablet PO (08:42)
[2020-06-29] MEDS: Clopidogrel Bisulfate 75 MG Tablet PO (08:42)
[2020-06-29 08:43] VITALS: BP 126/82; PULSE 60; RESP 18; TEMP 36.4; O2SAT 97
[2020-06-29] MEDS: Famotidine 20 MG Tablet 40 MG PO (08:43)
[2020-06-29] MEDS: Ezetimibe 10 MG Tablet PO (08:43)
[2020-06-29] MEDS: Acetaminophen 325 MG Tablet 650 MG PO (08:48)
[2020-06-29] MEDS: Arthritis Pain Compound 60 CLICK TUBE TOPICAL (08:58)
--- NOTE | 2020-06-29 11:58 | PCM.DC ---
- Discharge Diagnoses Current Active Problems: Current Active and Chronic Problems (Last Reviewed 06/11/20 @ 15:[address] Keira Ponce, DO) Thrombocytopenia (Chronic) Since 2012 Hyponatremia (Acute) Macrocytic anemia (Chronic) Degenerative disc disease, cervical (Chronic) Worst at C5-6 and C6-7. Physical debility (Acute) Due to recent fall with multiple fractures including nasal bone, left patella and bilateral wrist fractures. Psoriasis (Chronic) Glaucoma (Chronic) You will use the following diet at home:: Cardiac - Low-fat, low-salt Your food should be the consistency of: Regular Your liquids should be the consistency of: Regular/Thin Discharge Activity: May Not Shower - Use a shower chair, Use Walker Weight Bearing Status: Full weight bearing Keep extremity elevated above heart level: Left Leg Call your doctor if you observe: Fever of 101 or Higher, Inability to urinate, Inability to have a bowel movement, Shortness of breath, Dizziness, Fainting spells, Swelling in the ankles, Chest pain, Calf discomfort, Uncontrolled pain Instructions: Bone Density Study, What Is Osteoporosis?, ED Anemia Iron Deficiency Additional Instructions: 1. The lightheadedness and falls may be due to a drop in your BP when you go from lying down to sitting and then 2 standing. This is called orthostatic hypotension and it has resolved with the discontinuation of the Lisinopril. You BP is good without the Lisinopril. 2. I think you should have a bone density study in the near future if you have not already had one. This estimates the density of the bone and helps determine if you have bone loss and if you need to be on more than a vitamin D supplement to build the bone back up. The calcium and the vitamin D in the hospital were both normal BUT, we are heading into winter and you need sunlight to provide you with the vitamin D necessary to absorb calcium from the GI tract into your blood stream so it can be used to build bone. You should take about 1,000mg a day. 3. You are iron deficient and we gave yopu 600 mg of IV iron in the hospital and you are going home on an iron supplement and Vitamin C.......iron needs acid to be absorbed from the GI tract and you are on a medication to suppress acid in the stomache because you have blood in the stool and it may be due to chronic irritation of the lining of the stomach from the Aspirin and the Plavix.......this is not uncommon. The Vitamin C helps the iron be absorbed from the GI tract into the blood so it can be used to make new red blood cells. 4. Your heart reate is a little slow and this is due to one of the eye drops you take for glaucoma. It increases with exercise appropriately. 5. It has been a pleasure getting to know you and Marlene. Good luck to you going forward. If you have any questions after you leave the rehab unit please do not hesitate to call me at [phone] (office) or [phone] (cell). Allergies/Adverse Reactions: Allergies metoprolol [From Lopressor] Allergy (Intermediate, Verified 06/06/20 17:42) Shortness of breath Penicillins Allergy (Verified 06/06/20 17:42) Rash Medications to take at Discharge Aspirin E.C. [Ecotrin] 81 mg PO DAILY@0800 12/06/16 Ursodiol [Huey] 500 mg PO BIDCM 12/06/16 albuterol sulfate 90 mcg/actuation aerosol inhaler 2 puff INHALATION Q4H PRN g 05/25/19 finasteride 5 mg tablet 5 mg PO DAILY 05/25/19 multivitamin 1 tab PO BIDCM 05/25/19 nitroglycerin 0.4 mg sublingual tablet 0.4 mg SUBLINGUAL Q5-15M PRN 05/25/19 Brimonidine Tartrate [Alphagan P] 1 drp EACH EYE BID 06/02/19 Travoprost 0.004% [Travatan-Z 0.004% Eye Drop] 1 drp EACH EYE QHS 06/02/19 magnesium oxide 500 mg tablet 1,500 mg PO QHS tab 06/27/19 cetirizine 10 mg capsule 10 mg PO DAILY PRN 08/29/19 ezetimibe 10 mg tablet 10 mg PO DAILY #90 tab 09/03/19 atorvastatin 20 mg tablet 20 mg PO QHS #90 tab 10/23/19 clopidogrel 75 mg tablet 75 mg PO DAILY #90 tab 10/23/19 Netarsudil Mesylate [Rhopressa] 1 drp OP DAILY 06/06/20 Acetaminophen [Tylenol Tablet] 650 mg PO Q6H PRN PRN tab 06/09/20 Calcium Carb/Vitamin D [Os-Steve 500MG + D] 1 tab PO BIDCM 06/09/20 Senna/Docusate Sodium [Senokot-S] 2 tab PO BID PRN PRN tab 06/09/20 Arthritis Pain Compound 0 click TOPICAL BID #60 gm 06/29/20 Ascorbic Acid [Vitamin C] 500 mg PO DAILY@1200 tablet 06/29/20 Famotidine [Pepcid] 40 mg PO DAILY #30 tab 06/29/20 Ferrous Sulfate 325 mg PO DAILY@1200 #90 tab 06/29/20 The following prescriptions were given: Arthritis Pain Compound 0 click TOPICAL BID #60 gm Prescription Printed Ferrous Sulfate 325 mg PO DAILY@1200 #90 tab [facility]: [facility] Famotidine [Pepcid] 40 mg PO DAILY #30 tab [facility]: [facility] Primary Care Physician: Manuel Logan MD [Primary Care Provider] - Test Results: Test results from this visit will be discussed in further detail at your follow-up appointment, if applicable. Please Follow Up With: Dr Ivory When: Tuesday Please Follow Up With: Manuel Logan MD When: 2 weeks Please Follow Up With: Dr. Grant When: has appt Proposed Discharge Date: 06/29/20
[2020-06-29] MEDS: Ascorbic Acid 500 MG Tablet PO (12:17)
[2020-06-29] MEDS: Ferrous Sulfate 325 MG Tablet PO (12:17)
--- NOTE | 2020-06-29 12:21 | PCM.DC.SUM ---
Discharge Date and Diagnosis - Problem List Patient Problems: Active and Suspected Problems (Last Reviewed 06/11/20 @ 15:[address] Keira Ponce DO) Heme + stool (Acute) Orthostatic hypotension (Acute) Iron deficiency anemia (Acute) Hyponatremia (Acute) Physical debility (Acute) Due to recent fall with multiple fractures including nasal bone, left patella and bilateral wrist fractures. Date of Admission: 06/09/20 Date of Discharge: 06/29/20 - Primary Discharge Diagnosis Acute Problems: Active Problems (Last Reviewed 06/11/20 @ 15:[address] Keira Ponce DO) Physical debility (Acute) Due to recent fall with multiple fractures including nasal bone, left patella and bilateral wrist fractures. Orthostatic hypotension (Acute) - resolved with the discontinuation of Lisinopril Heme + stool (Acute) Iron deficiency anemia (Acute) Hyponatremia (Acute) - mild - Secondary Discharge Diagnosis Chronic Problems: Chronic Problems (Last Reviewed 06/11/20 @ 15:[address] Keira Ponce DO) History of colon polyps (Chronic) History of colon resection (Chronic) for dysplastic polyp? Sinus bradycardia (Chronic) -due to eye drops for glaucoma Thrombocytopenia (Chronic) - intermittent Since 2011 Degenerative disc disease, cervical (Chronic) Worst at C5-6 and C6-7. Psoriasis (Chronic) Glaucoma (Chronic) Nonrheumatic aortic valve stenosis (Chronic) Essential hypertension (Chronic) Atherosclerosis of coronary artery of [place] heart without angina pectoris (Chronic) 2.75 x 15 mm Promus to mid LAD, 3.0 x 12 mm Promus to proximal LAD 08/14/10; 2.5 x 8 mm Xience Alpine FIDEL to mid LAD 11/15/16 Presence of stent in coronary artery (Chronic) 2.75 x 15 mm Promus to mid LAD, 3.0 x 12 mm Promus to proximal LAD 08/14/10; 2.5 x 8 mm Xience Alpine FIDEL to mid LAD 11/15/16 Primary biliary cirrhosis (Chronic) Cholelithiasis without obstruction (Chronic) Hyperlipidemia (Chronic) Hospital Course and Treatment Imaging Results: Clinical Impression(s) from Imaging Studies Knee X-Ray 06/11/20 15:05 IMPRESSION: 1. Small joint effusion. Capsular or ligamentous calcification adjacent to the medial femoral condyle. Electronically Signed: Luis Paul MD at 16:59 EDT , Service support , Laboratory Last Values WBC 6.4 K/mm3 (4.4-11.0) 06/25/20 05:30 RBC 3.85 M/mm3 (4.6-6.2) L 06/25/20 05:30 Hgb 12.0 g/dL (13.0-16.5) L 06/25/20 05:30 Hct 38.0 % (40-54) L 06/25/20 05:30 MCV 98.7 fL (80-94) H 06/25/20 05:30 MCH 31.2 pg (27.0-32.0) 06/25/20 05:30 MCHC 31.6 g/dL (32-36) L 06/25/20 05:30 RDW Std Deviation 49.8 fl (35.1-43.9) H 06/25/20 05:30 RDW Coeff of Angelia 13.6 % (11.6-14.6) 06/25/20 05:30 Plt Count 195 K/mm3 (150-450) 06/25/20 05:30 MPV 9.5 fl (6.2-12.0) 06/25/20 05:30 Immature Gran % (Auto) 0.200 % (0.0-0.9) 06/11/20 05:33 Neut % (Auto) 54.6 % (47-70) 06/11/20 05:33 Lymph % (Auto) 30.6 % (19-41) 06/11/20 05:33 [place] % (Auto) 11.0 % (0-10) H 06/11/20 05:33 Eos % (Auto) 3.1 % (0-5) 06/11/20 05:33 Baso % (Auto) 0.5 % (0-1) 06/11/20 05:33 Absolute Neuts (auto) 4.5 X10^3/uL (2.0-7.7) 06/11/20 05:33 Absolute Lymphs (auto) 2.49 X10^3/uL (0.83-4.51) 06/11/20 05:33 Nucleated RBC % 0 % (0-5) 06/11/20 05:33 Immature Plt Fraction 8.5 % (1.0-7.9) H 06/11/20 05:33 Retic Count 1.45 % (0.5-1.5) 06/11/20 05:33 Immature Retic Fraction 10.30 % (3.00-15.90) 06/11/20 05:33 Retic Hgb Equivalent 33.1 pg (30-35) 06/11/20 05:33 PT 13.2 SECONDS (11.7-14.9) 06/25/20 05:30 INR 1.1 06/25/20 05:30 Sodium 135 mmol/L (136-145) L 06/25/20 05:30 Potassium 4.2 mmol/L (3.5-5.1) 06/25/20 05:30 Chloride 102 mmol/L (98-107) 06/25/20 05:30 Carbon Dioxide 31.0 mmol/L (21.0-32.0) 06/25/20 05:30 Anion Gap 2 (5-15) L 06/25/20 05:30 BUN 16 mg/dL (7-18) 06/25/20 05:30 Creatinine 0.71 mg/dL (0.70-1.30) 06/25/20 05:30 Estim Creat Clear Calc 61.43 ml/min 06/25/20 05:30 Est GFR (MDRD) Af Amer 137 mL/min (>60) 06/25/20 05:30 Est GFR (MDRD) Non-Af 113 mL/min (>60) 06/25/20 05:30 BUN/Creatinine Ratio 22.7 RATIO (-20) H 06/25/20 05:30 Glucose 98 mg/dL (74-106) 06/25/20 05:30 Uric Acid 3.6 mg/dL (3.5-7.2) 06/11/20 05:33 Calcium 8.8 mg/dL (8.5-10.1) 06/25/20 05:30 Phosphorus 4.2 mg/dL (2.5-4.9) 06/11/20 05:33 Magnesium 2.3 mg/dL (1.6-2.6) 06/25/20 05:30 Iron 29 ug/dL (65-175) L 06/18/20 10:35 TIBC 272 ug/dL (250-450) 06/18/20 10:35 Iron Saturation 10.7 % (15.0-55.0) L 06/18/20 10:35 Total Bilirubin 0.80 mg/dL (0.20-1.00) 06/11/20 05:33 AST 28 U/L (15-37) 06/11/20 05:33 ALT 26 U/L (16-61) 06/11/20 05:33 Alkaline Phosphatase 87 U/L (45-117) 06/11/20 05:33 Total Protein 7.6 g/dL (6.4-8.2) 06/11/20 05:33 Total Protein (PEP) 7.3 g/dL (6.0-8.5) 06/12/20 10:24 Albumin 2.9 g/dL (3.2-5.0) L 06/11/20 05:33 Albumin (PEP) 3.1 g/dL (2.9-4.4) 06/12/20 10:24 Globulin 4.7 g/dL (2.2-4.2) H 06/11/20 05:33 Globulin (PEP) 4.2 g/dL (2.2-3.9) H 06/12/20 10:24 Albumin/Globulin Ratio 0.6 RATIO (0.9-2.4) L 06/11/20 05:33 Albumin/Globulin (PEP) 0.7 (0.7-1.7) 06/12/20 10:24 Sfugr-6-Emkzenrju 0.4 g/dL (0.0-0.4) 06/12/20 10:24 Xtmwh-7-Mtmoduesh 1.0 g/dL (0.4-1.0) 06/12/20 10:24 Beta Globulins 1.0 g/dL (0.7-1.3) 06/12/20 10:24 Gamma Globulins 1.8 g/dL (0.4-1.8) 06/12/20 10:24 M-Venu g/dL 06/12/20 10:24 PEP Note Comment (.) 06/12/20 10:24 PEP Interpretation Comment (.) 06/12/20 10:24 RBC Folate Hemolysate 445.0 ng/mL (Not Estab.) 06/18/20 10:35 RBC Folate 1042 ng/mL (>498) 06/18/20 10:35 Hematocrit 42.7 % (37.5-51.0) 06/18/20 10:35 PTH Intact 36.5 pg/mL (18.4-80.1) 06/11/20 05:33 Urine Total Protein 15.3 mg/dL (Not Estab.) 06/12/20 10:24 Urine Albumin 32.2 % (.) 06/12/20 10:24 U Mcajt-0-Czdnthgf 4.0 % (.) 06/12/20 10:24 U Zvgpq-2-Wwdqplrw 18.5 % (.) 06/12/20 10:24 U Beta Globulin 28.1 % (.) 06/12/20 10:24 U Gamma Globulin 17.3 % (.) 06/12/20 10:24 U PEP M-Venu % 06/12/20 10:24 Microbiology 06/17/20 04:34 Stool Stool Occult Blood (HANNA) - Final Occult Blood Positive none Operations: None Procedures: - - R knee joint injection on 06/12/20 with 40 mg of Kenalog and 1% Lidocaine Summary of Care Provided: Anival Carey is an 85 year old M with a past medical history of hyperlipidemia, hypertension, primary biliary cirrhosis with recent alkaline phosphatase within normal limits, glaucoma, coronary artery disease, PTCA with drug-eluting stent to the mid LAD and proximal LAD, mild biatrial enlargement, cholelithiasis and nonrheumatic aortic valve stenosis (but cath in May showed no AV stenosis) who presented to the emergency department at [facility] on 06/06/2020 after a fall. He has chronic problems with maintaining balance and feels lightheaded at times. The fall resulted in fracture of the nasal bone, bilateral wrists, left patellar facet fx and a large Left knee effusion. He was admitted to the hospital for observation and was seen by PT and OT. Recommendation for transfer to acute inpt rehab was made. He was admitted to the rehab floor at [facility] on 06/09/20 for 3 hours of therapy daily to restore at or near his prior level of function. Shortly after admission to the inpt unit he developed R knee pain with swelling of the suprapatellar bursa. There was no erythema or increased warmth to touch. There was a small abrasion and some bruising due to the recent fall. Xray of the R showed a small joint effusion and capsular or ligamentous calcification adjacent to the medial femoral condyle. On 06/12/20 I injected the R knee with 40 mg of Kenalog and 1% Lidocaine. The right knee pain resolved and did not recur for the duration of his stay in rehab. Review of labs over the past few years showed a persistent low grade anemia since May. MCV is always mildly increased. B12 was within normal limits at 476 and the RBC folate was 1042. TSH was normal within the past year and so was the free T4. Serum protein electrophoresis did not show an M spike. Serum iron was low at 29 and the TIBC was 272. Iron saturation was low at 10.7% and the ferritin was 73 ( I think this is actually increased due to the acute inflammation due to fractures and R knee pain and inflammation). Hemoccult stool was positive. He has a hx of a partial colon resection because of dysplastic polyp? He had a colonoscopy 3 years prior to presenting to the rehab unit and it was unremarkable. He is chronically on ASA and Plavix and may have GI blood loss due to gastric irritation. He was started on an H2 marilee. He denied Nausea and epigastric pain. He received a total of 600 mg of Iron while in the rehab unit and he was discharged on 500 mg Vitamin C and 325 mg of Ferrous sulfate daily. He is going to follow up with Dr. Grant (gastroenterology) post [place]. The HGB remained stable while in rehab. He was bradycardic for much of his stay in rehab and this is likely due to the eyedrops he takes for Glaucoma. The HR does increase appropriately with exercise. Initially he was feeling lightheaded at times with standing and ambulation. Orthostatic VS's were + for orthostatic hypotension and Lisinopril was discontinued. Orthostatic hypotension resolve on follow up orthostatic VS's. He had no more complaints of lightheadedness and the BP remained WNL. He did very well in therapy and prior to discharge he ambulated 330 feet on various surfaces with a wheeled walker. He had good debra and fair posture's of balance. He was able to a send/descend 2 steps at contact-guard assist so that he can enter his house. He needed minimal assistance with bathing and lower body dressing. He required moderate assistance with toileting....primarily for posterior hygiene. Pain was well controlled with as needed acetaminophen and arthritis compounded cream twice daily to painful areas. Anival was discharged home on 06/29/2020 in stable condition. Vital signs at the time of discharge were heart rate 60, blood pressure 126/82, respiratory rate 18 and he was 97% saturated on room air. He will follow-up with Dr. Carrero, Dr. Grant and Dr. Logan. He will have therapy with [facility] post [place]. Alert, oriented x3, pleasant, sitting in the recliner at the bedside in no apparent distress Mucous membranes are moist. No mucosal lesions. Lungs-clear to auscultation with good air exchange Heart-regular rhythm with heart rate of 60 bpm. No gallop and no rub. No murmurs. Abdomen-soft, nontender, nondistended, bowel sounds present, no guarding with palpation No calf tenderness, no ankle edema. No rashes, abrasion on the right knee is healing. No focal neurologic deficits Normal affect, good mood, pleasant This note was generated with Nov[employer] dictation software. It may contain incorrect words, spelling, and punctuation that were not noted in checking the note before signing. [] Patient Problems: Active and Suspected Problems (Last Reviewed 06/11/20 @ 15:[address] Keira Ponce, DO) Heme + stool (Acute) Orthostatic hypotension (Acute) Iron deficiency anemia (Acute) Hyponatremia (Acute) Physical debility (Acute) Due to recent fall with multiple fractures including nasal bone, left patella and bilateral wrist fractures. - Physical Exam Vitals/I&O's: Vital Signs Temp Pulse Resp BP Pulse Ox 97.6 F L 60 18 126/82 H 97 06/29/20 08:43 06/29/20 08:43 06/29/20 08:43 06/29/20 08:43 06/29/20 08:43 Oxygen Flow Rate (L/min) 96 Oxygen Delivery Method Room Air Weight: 229 lb 11.547 oz Body Mass Index (BMI) 32.5 Orthostatic Vital Signs Start: 06/11/20 05:07 Freq: Status: Active Protocol: Activity Type Activity Date Activity User E-Sign Co-Sign Detail Recorded Client Recorded Date Recorded By Document 06/17/20 10:33 [id number] 06/17/20 10:34 06/17/20 10:33 Orthostatic Vitals Lying -Blood Pressure (90/60-120/80 mm Hg) 122/67 H -Extremity Use Right Arm -Pulse Rate (60-100 beats/min) 57 L Sitting -Blood Pressure (90/60-120/80 mm Hg) 123/70 H -Extremity Use Right Arm -Pulse Rate (60-100 beats/min) 51 L Standing -Blood Pressure (90/60-120/80 mm Hg) 116/70 -Extremity Use Right Arm -Pulse Rate (60-100 beats/min) 73 Intake and Output for Last 24 Hours 06/27/20 06/28/20 06/29/20 23:59 23:59 23:59 Intake Total 1600 / 1600 1440 / 1440 Output Total 1150 / 1150 750 / 750 750 / 750 Balance 450 / 450 690 / 690 -750 / -750 Current Medications Acetaminophen (Tylenol) 650 mg PO Q6H PRN PRN PRN Reason: Pain Score 1-10/Temp > 100.7 F Last Admin: 06/29/20 08:48 Dose: 650 mg Documented by: Albuterol Sulfate (Proventil Hfa) 2 puff IH Q4H PRN PRN PRN Reason: Asthma Last Admin: 06/29/20 05:24 Dose: 2 puff Documented by: Ascorbic Acid (Vitamin C) 500 mg PO DAILY@1200 [facility] Last Admin: 06/29/20 12:17 Dose: 500 mg Documented by: Aspirin (Ecotrin) 81 mg PO DAILY@0800 [facility] Last Admin: 06/29/20 08:41 Dose: 81 mg Documented by: Atorvastatin Calcium (Lipitor) 20 mg PO QHS [facility] Last Admin: 06/28/20 20:10 Dose: 20 mg Documented by: Bisacodyl (Dulcolax) 10 mg RECTAL .PRN X 1 PRN PRN Reason: Constipation Brimonidine Tartrate (Alphagan P 0.15%) 1 drop EACH EYE BID [facility] Last Admin: 06/29/20 08:38 Dose: 1 drop Documented by: Clopidogrel Bisulfate (Plavix) 75 mg PO DAILY [facility] Last Admin: 06/29/20 08:42 Dose: 75 mg Documented by: Compound Med (Arthritis Pain Compound) 0 click TOPICAL BID [facility]; Protocol Last Admin: 06/29/20 08:58 Dose: 2 click Documented by: Ezetimibe (Zetia) 10 mg PO DAILY [facility] Last Admin: 06/29/20 08:43 Dose: 10 mg Documented by: Famotidine (Pepcid) 40 mg PO DAILY [facility] Last Admin: 06/29/20 08:43 Dose: 40 mg Documented by: Ferrous Sulfate (Ferrous Sulfate) 325 mg PO DAILY@1200 [facility] Last Admin: 06/29/20 12:17 Dose: 325 mg Documented by: Finasteride (Proscar) 5 mg PO DAILY [facility] Last Admin: 06/29/20 08:42 Dose: 5 mg Documented by: Latanoprost (Xalatan Opthalmic) 1 drop EACH EYE QHS [facility] Last Admin: 06/28/20 20:09 Dose: 1 drop Documented by: Loratadine (Claritin) 10 mg PO DAILY PRN PRN PRN Reason: ALLERGIES Last Admin: 06/24/20 05:15 Dose: 10 mg Documented by: Magnesium Chloride (Mag64) 320 mg PO QHS [facility] Last Admin: 06/28/20 20:10 Dose: 320 mg Documented by: Magnesium Hydroxide (Milk Of Magnesia) 30 ml PO .PRN X 1 PRN PRN Reason: Constipation Last Admin: 06/12/20 19:40 Dose: 30 ml Documented by: Miscellaneous Information (Pocket Chamber) 1 each INHALATION Q4H PRN PRN PRN Reason: ASTHMA Last Admin: 06/27/20 21:00 Dose: 1 each Documented by: [facility]it[facility] ([facility]itamin) [facility] Last Admin: 06/29/20 08:41 Dose: 1 tablet Documented by: Nitroglycerin (Nitrostat) 0.4 mg SUBLINGUAL Q5M PRN PRN Reason: CARDIAC/CHEST PAIN Oxycodone HCl (Oxyir) 5 mg PO Q6H PRN PRN PRN Reason: Pain Score 6-10/10 Last Admin: 06/12/20 07:36 Dose: 5 mg Documented by: Senna/Docusate Sodium (Senokot-S, Alexandra-Colace) 2 tablet PO BID PRN PRN PRN Reason: Constipation Last Admin: 06/25/20 20:48 Dose: 2 tablet Documented by: Sodium Chloride () 10 - 40 ml IV UD PRN PRN Reason: SALINE FLUSH Last Admin: 06/24/20 11:50 Dose: 10 ml Documented by: Ursodiol (Huey) [facility] Last Admin: 06/29/20 08:41 Dose: 500 mg Documented by: Discharge Activity: May Not Shower - Use a shower chair, Use Walker Weight Bearing Status: Full weight bearing Keep extremity elevated above heart level: Left Leg Call your doctor if you observe: Fever of 101 or Higher, Inability to urinate, Inability to have a bowel movement, Shortness of breath, Dizziness, Fainting spells, Swelling in the ankles, Chest pain, Calf discomfort, Uncontrolled pain Home Medications: Medications to take at Discharge Aspirin E.C. [Ecotrin] 81 mg PO DAILY@0800 12/06/16 Ursodiol [Huey] 500 mg PO BIDCM 12/06/16 albuterol sulfate 90 mcg/actuation aerosol inhaler 2 puff INHALATION Q4H PRN g 05/25/19 finasteride 5 mg tablet 5 mg PO DAILY 05/25/19 multivitamin 1 tab PO BIDCM 05/25/19 nitroglycerin 0.4 mg sublingual tablet 0.4 mg SUBLINGUAL Q5-15M PRN 05/25/19 Brimonidine Tartrate [Alphagan P] 1 drp EACH EYE BID 06/02/19 Travoprost 0.004% [Travatan-Z 0.004% Eye Drop] 1 drp EACH EYE QHS 06/02/19 magnesium oxide 500 mg tablet 1,500 mg PO QHS tab 06/27/19 cetirizine 10 mg capsule 10 mg PO DAILY PRN 08/29/19 ezetimibe 10 mg tablet 10 mg PO DAILY #90 tab 09/03/19 atorvastatin 20 mg tablet 20 mg PO QHS #90 tab 10/23/19 clopidogrel 75 mg tablet 75 mg PO DAILY #90 tab 10/23/19 Netarsudil Mesylate [Rhopressa] 1 drp OP DAILY 06/06/20 Acetaminophen [Tylenol Tablet] 650 mg PO Q6H PRN PRN tab 06/09/20 Calcium Carb/Vitamin D [Os-Steve 500MG + D] 1 tab PO BIDCM 06/09/20 Senna/Docusate Sodium [Senokot-S] 2 tab PO BID PRN PRN tab 06/09/20 Arthritis Pain Compound 0 click TOPICAL BID #60 gm 06/29/20 Ascorbic Acid [Vitamin C] 500 mg PO DAILY@1200 tab 06/29/20 Famotidine [Pepcid] 40 mg PO DAILY #30 tab 06/29/20 Ferrous Sulfate 325 mg PO DAILY@1200 #90 tab 06/29/20 Following Prescriptions Were Given to Patient: Arthritis Pain Compound 0 click TOPICAL BID #60 gm Prescription Printed Ferrous Sulfate 325 mg PO DAILY@1200 #90 tab Transmission Status: Received by [facility] Famotidine [Pepcid] 40 mg PO DAILY #30 tab Transmission Status: Received by [facility] Primary Care Physician: Manuel Logan MD [Primary Care Provider] - Please Follow Up With: Dr Ivory When: Tuesday Please Follow Up With: Manuel Logan MD When: 2 weeks Please Follow Up With: Dr. Grant When: has appt Patient Instructions: Bone Density Study, What Is Osteoporosis?, ED Anemia Iron Deficiency Disposition: Home with Home Health - [facility] Minutes spent on discharge:: 35 Patient Condition:: Good Medical Necessity - Tobacco Use Smoking Status: Never smoker Tobacco Use: Non-smoker Meaningful Use Info Meaningful Use Diagnoses (Choose all that apply): None applicable Inpatient E&M: 95209 Disch Hosp
[2020-06-29 13:20] VITALS: BP 126/82; PULSE 60; RESP 18; TEMP 36.4; O2SAT 97
--- NOTE | 2020-06-29 13:20 | NURSING ---
Discharge to home. Patient requested for this nurse to cancel his Dr. Ayers appt staff made due to he already has a GI
== END 2020-06-29 13:20 | disposition home health service (06) | DRG 561 ==
PROVIDERS: Admitting Provider Internal Medicine; PCP Family Medicine; Visit Provider Internal Medicine
DX: S02.2XXD Fracture of nasal bones, subsequent encounter for fracture with routine healing (principal); S82.002D Unspecified fracture of left patella, subsequent encounter for closed fracture with routine healing; S62.102D Fracture of unspecified carpal bone, left wrist, subsequent encounter for fracture with routine healing; S62.101D Fracture of unspecified carpal bone, right wrist, subsequent encounter for fracture with routine healing; S86.911D Strain of unspecified muscle(s) and tendon(s) at lower leg level, right leg, subsequent encounter; W19.XXXD Unspecified fall, subsequent encounter; M50.322 Other cervical disc degeneration at C5-C6 level; M50.323 Other cervical disc degeneration at C6-C7 level; I10 Essential (primary) hypertension; I25.10 Atherosclerotic heart disease of native coronary artery without angina pectoris; E78.5 Hyperlipidemia, unspecified; K74.3 Primary biliary cirrhosis; Z95.5 Presence of coronary angioplasty implant and graft; H40.9 Unspecified glaucoma; J45.909 Unspecified asthma, uncomplicated; N40.0 Benign prostatic hyperplasia without lower urinary tract symptoms; M19.90 Unspecified osteoarthritis, unspecified site; M06.9 Rheumatoid arthritis, unspecified; E66.9 Obesity, unspecified; Z68.31 Body mass index [BMI] 31.0-31.9, adult; D69.6 Thrombocytopenia, unspecified; L40.50 Arthropathic psoriasis, unspecified; I95.1 Orthostatic hypotension; D50.9 Iron deficiency anemia, unspecified
CPT/HCPCS: 36415; 73562; 80048; 80053; 82274; 82747; 83540; 83550; 83735; 83970; 84100; 84165; 84166; 84550; 85014; 85025; 85027; 85045; 85610; 97110; 97116; 97162; 97166; 97530; 97535; 97802; 99251; J7050; A4216; G0463; J2916

== ENCOUNTER → 2020-10-29 15:25 | Outpatient (CLI) | payer MEDICARE, SELFPAY ==
[2020-08-06 14:32] VITALS: BMI 31.6
[2020-10-29 16:08] LABS: Absolute Lymphocyte Count 2.04 X10^3/uL (0.83-4.51); Absolute Neutrophil Count 3.2 X10^3/uL (2.0-7.7); Basophil# 0.03 X10^3/uL; Basophil% 0.5 % (0-1); Eosinophil# 0.22 X10^3/uL; Eosinophils% 3.5 % (0-5); Hematocrit 42.3 % (40-54); Hemoglobin 13.4 g/dL (13.0-16.5); Lymphocyte # 2.04 X10^3/ul (4.0); Lymphocyte % 32.5 % (19-41); Mean Corp Hgb Conc 31.7 g/dL (32-36); Mean Corpuscular Hgb 31.3 pg (27.0-32.0); Mean Corpuscular Volume 98.8 fL (80-94); Mean Platelet Vol. 10.8 fl (6.2-12.0); Monocyte# 0.73 X10^3/uL; Monocyte% 11.6 % (0-10); NRBC Flagged by Analyzer 0 % (0-5); Neutrophil # 3.24 X10^3/uL (2.7-7.7); Neutrophil % 51.6 % (47-70); Platelet Count 138 K/mm3 (150-450); RBC Distribution Width CV 13.5 % (11.6-14.6); RBC Distribution Width SD 49.5 fl (35.1-43.9); Red Blood Count 4.28 M/mm3 (4.6-6.2); White Blood Count 6.3 K/mm3 (4.4-11.0)
[2020-10-29 16:46] LABS: ALB/GLOB Ratio 0.7 RATIO (0.9-2.4); AST(SGOT) 28 U/L (15-37); Alanine Aminotransfer ALT/SGPT 27 U/L (16-61); Albumin, Serum 3.3 g/dL (3.2-5.0); Alkaline Phosphatase 106 U/L (45-117); Anion Gap 1 (5-15); BUN 18 mg/dL (7-18); BUN/Creat Ratio 23.1 RATIO (10-20); Calcium,Total 9.5 mg/dL (8.5-10.1); Chloride 102 mmol/L (98-107); Creatinine, Serum 0.78 mg/dL (0.70-1.30); EST Glomerular Filtration Rate 101 mL/min (>60); Est Glom Filt Rate - Afr Amer 122 mL/min (>60); Globulin 4.6 g/dL (2.2-4.2); Glucose 89 mg/dL (74-106); Potassium 4.4 mmol/L (3.5-5.1); Protein, Total 7.9 g/dL (6.4-8.2); Sodium Level 139 mmol/L (136-145)
[2020-10-29 17:19] LABS: Vitamin B12 730 pg/mL (211-911)
== END ==
PROVIDERS: PCP Internal Medicine; Referring Provider Internal Medicine; Visit Provider Internal Medicine
DX: D64.9 Anemia, unspecified (principal); I10 Essential (primary) hypertension; E53.8 Deficiency of other specified B group vitamins
CPT/HCPCS: 36415; 80053; 82607; 85025

== ENCOUNTER → 2020-11-14 15:08 | Outpatient (CLI) | payer MEDICARE, SELFPAY ==
[2020-08-06 14:32] VITALS: BMI 31.6
[2020-11-14 17:28] LABS: Cholesterol 139 mg/dL (200); High Density Lipoprotein 55 mg/dL; T4 Free Direct 1.04 ng/dL (0.76-1.46); Thyroid Stim Hormone (TSH) 1.33 uIU/mL (0.358-3.74); Triglycerides 96 mg/dL; Very Low Density Lipoprotein 19 mg/dL (5-40)
== END ==
PROVIDERS: PCP Internal Medicine; Referring Provider Internal Medicine; Visit Provider Internal Medicine
DX: E78.5 Hyperlipidemia, unspecified (principal); R25.1 Tremor, unspecified
CPT/HCPCS: 36415; 80061; 84439; 84443

== ENCOUNTER → 2020-11-19 10:34 | Outpatient (CLI) | payer MEDICARE, SELFPAY ==
[2020-11-19 09:24] VITALS: BMI 32.0
== END ==
PROVIDERS: PCP Internal Medicine; Referring Provider Physician Assistant Medical; Visit Provider Physician Assistant Medical
DX: I10 Essential (primary) hypertension (principal); I35.0 Nonrheumatic aortic (valve) stenosis; E78.5 Hyperlipidemia, unspecified; R00.1 Bradycardia, unspecified
CPT/HCPCS: 93225; 93226

== ENCOUNTER → 2021-02-12 15:45 | Outpatient (CLI) | payer MEDICARE, SELFPAY ==
[2021-02-12 15:22] VITALS: BMI 32.0
[2021-02-12 16:37] LABS: Absolute Lymphocyte Count 2.04 X10^3/uL (0.83-4.51); Absolute Neutrophil Count 2.9 X10^3/uL (2.0-7.7); Basophil# 0.02 X10^3/uL; Basophil% 0.3 % (0-1); Eosinophil# 0.28 X10^3/uL; Eosinophils% 4.7 % (0-5); Hematocrit 40.2 % (40-54); Hemoglobin 12.7 g/dL (13.0-16.5); Lymphocyte # 2.04 X10^3/ul (0.83-4.51); Lymphocyte % 34.3 % (19-41); Mean Corp Hgb Conc 31.6 g/dL (32-36); Mean Corpuscular Hgb 31.4 pg (27.0-32.0); Mean Corpuscular Volume 99.5 fL (80-94); Mean Platelet Vol. 11.1 fl (6.2-12.0); Monocyte# 0.71 X10^3/uL; Monocyte% 11.9 % (0-10); NRBC Flagged by Analyzer 0 % (0-5); Neutrophil # 2.89 X10^3/uL (2.7-7.7); Neutrophil % 48.6 % (47-70); Platelet Count 130 K/mm3 (150-450); RBC Distribution Width CV 13.9 % (11.6-14.6); RBC Distribution Width SD 51.3 fl (35.1-43.9); Red Blood Count 4.04 M/mm3 (4.6-6.2)
[2021-02-12 17:29] LABS: ALB/GLOB Ratio 0.8 RATIO (0.9-2.4); AST(SGOT) 32 U/L (15-37); Alanine Aminotransfer ALT/SGPT 25 U/L (16-61); Albumin, Serum 3.3 g/dL (3.2-5.0); Alkaline Phosphatase 95 U/L (45-117); Anion Gap 2 (5-15); BUN 15 mg/dL (7-18); BUN/Creat Ratio 18.8 RATIO (10-20); Calcium,Total 9.2 mg/dL (8.5-10.1); Chloride 102 mmol/L (98-107); EST Glomerular Filtration Rate 98 mL/min (>60); Est Glom Filt Rate - Afr Amer 119 mL/min (>60); Globulin 4.4 g/dL (2.2-4.2); Glucose 107 mg/dL (74-106); Potassium 3.8 mmol/L (3.5-5.1); Protein, Total 7.7 g/dL (6.4-8.2); Sodium Level 139 mmol/L (136-145)
== END ==
PROVIDERS: PCP Internal Medicine; Visit Provider Internal Medicine
DX: E78.5 Hyperlipidemia, unspecified (principal); I10 Essential (primary) hypertension
CPT/HCPCS: 36415; 80053; 85025

== ENCOUNTER 2021-04-13 15:30 | Outpatient (RCR) | payer MEDICARE, SELFPAY ==
[2020-11-19 09:24] VITALS: BMI 32.0
--- NOTE | 2020-12-31 13:56 | HP.PTEVAL ---
Patient's Visit Information ARNULFO RUST is a 85 year old M referred to Physical Therapy by Dr. Julia Arceo DO with a diagnosis of Balance and Gait Disturbance. Date of Evaluation: 12/31/20 Physical Therapist: Ila Ross DPT - Visit Plan Frequency: 3x /Week Duration: 3 Weeks Plan: Balance Assessment. Focus on LE and core strength/stabilization, proprioception, ambulation with a cane and functional mobility. - Subjective Was coming to [facility] 3x a week which stopped in Oct due to COVID- in November broke his December fell and then did therapy at home. Was using his cane and back to all of his normal stuff the summer. June he was walking in [facility] and he fell facefirst for no reason. Busted both left knee, both wrist and his face. Then had therapy in the 4th floor for 3 weeks at the hospital then he went home. He had 2-3 weeks in home therapy- Oct was doing his own thing faithfully then his back started to bother him with a ruptured disc- was down for 2-3 weeks and stopped exercising. MD sent for testing- [facility]- has had a heart monitor and they have cleared him for therapy. He struggles with depth perception. Single story home- with 2 steps to enter- with a railing and a cane. Is using a walker in the house- attempted the cane but did not feel confident. Does have some dizziness with movement. Lives with - but does not drive. Fully I with all ADL's- has bars in the bathroom. No falls since the big one in June. Has arthritis which bothers him intermittently. Has had injections in both knees. Goals: feeling safe with his cane. PMHx/Meds: no change since saw Cardioloist- in notes - Objective Posture: FH, RS- can correct but does not maintain. Gait: antalgic- FWW- step through gait pattern, slow debra. Stairs: asc/desc 8 non reip with 1 HR asc and 2 HR desc. ROM: WFL. Strength: Core: fair, Left: Hip: 4/5 throughout, Knee: 4+/5, Ankle: 4+/5 Right: Hip: 4+/5, Knee: 5/5, Ankle: 5/5. Flex: HS: severe, Gastroc: severe. Balance: Eyes closed 30 sec: SBA for safety, Tandem stance: requires UE to obtain position- 3 sec then LOB, SLS: 3 sec then LOB. Special Tests: TU.37, 10 sit to financial solutions advisor 30 seconds - Balance Scores Functional Gait Assessment Score: 11 % Disability: 63.3400 - Goals Goal 1:: Patient will be I with HEP and progression Goal Time Frame: 4-6 Weeks Goal 2:: Patient will ambulate >300 feet with a normalized gait pattern with LRD Goal Time Frame: 4-6 Weeks Goal 3:: Patient will asc/desc 8 recip with 1 HR. Goal Time Frame: 4-6 Weeks Goal 4:: Patient will improve his FGA by 2 points Goal Time Frame: 4-6 Weeks Goal 5:: Patient will demo 5/5 in LE where deficit Goal Time Frame: 4-6 Weeks - Rehabilitation Potential Physical Therapy Diagnosis: Patient presents with hypomobility-he has decreased strength, flex, propioception and muscular endurance leading to abnormal gait and increased ability to perform ADL's. Rehabilitation Potential: Good - Anticipated Interventions Patient/Client Instruction: Educate patient on: Benefits of Fitness Program Therapeutic Exercise to Include: Strength training, Endurance training, Balance training, Coordination, Agility training, Body mechanics, Postural training, Flexibilty training, Gait and locomotor training, Neuromotor development, Dynamic Lumbar Stabilization, Scapular Strength/Stabilization For the Purpose of:: To improve muscle performance and motor function Functional Training to Include: ADL Training, Gait training Thank you for the opportunity to evaluate your patient. For Medicare and Medicare HMO plans, please review the plan of care and approve it. It will need to be FAXED BACK to us at [phone] for Medicare purposes. For Medicare only, by signing this I certify the plan of care. Please let me know if there are questions or concerns regarding this plan of care. Physician Signature: Date:
--- NOTE | 2021-01-07 14:36 | HP.PTCOM_ITS ---
PT Communication Note 01/07/[address] Julia Arceo, DO , Thank you for the referral of Jessee to [facility] for balance assessment. I have enclosed a copy of the results for your review. In summation, he scored low on the visual portion of the Sensory Organization test consistent with glaucoma. He scored low on the posterior musculature in the motor control Test. he scored low on the forward weight shifting excursiona dn control in the Limits of stability test. With these results in mind I plan to see add to his original plan of care for barakat weight hsifting exercises to [facility] with his functional balance. please do not hesitate to call if there are questions about his garcia of care. Sincerely, Antonio Ahmadi, PADMAT, OCS, CSCS Contact Information
--- NOTE | 2021-01-26 14:41 | HP.PTREVAL ---
Dr. Julia Arceo, DO, It has been my pleasure to treat ARNULFO RUST over the last 11 visits for Balance and Gait Disturbance. Please see the progress note below for an update on the physical therapy plan of care! Subjective: Patient reports that he is now not using a cane in the house- only the cane for stairs. Still using a walker outside on uneven surfaces- store was able to use a cane. No falls since the big one- he sometimes feels that he leans when he is shaving but that is getting better. He feels that his strength is also improving- easier to get out of the chair. Objective/Function: Posture: FH, RS- can correct but does not maintain. Gait: slightly antlagic- no AD- good debra Stairs: asc/desc 8 recip with 1 HR ROM: WFL. Strength: Core: fair, Left: Hip: 4+/5 throughout, Knee: 5/5, Ankle: 4+/5 Right: Hip: 5/5, Knee: 5/5, Ankle: 5/5. Flex: HS: severe, Gastroc: severe. Balance: Esee FGA Special Tests: TU.10, 12 sit to industrial designer 30 seconds Plan Plan: 01/26/2021: Propioception, Uneven Surfaces, confidence with gait and balance- Gym program. FW weight shifting exercises. Focus on LE and core strength/stabilization, proprioception, ambulation with a cane and functional mobility. Goals Goal 1:: Patient will be I with HEP and progression Goal Time Frame: 4-6 Weeks Goal Progress: Progressing Goal 2:: Patient will ambulate >300 feet with a normalized gait pattern with LRD Goal Time Frame: 4-6 Weeks Goal Progress: Progressing Goal 3:: Patient will asc/desc 8 recip with 1 HR. Goal Time Frame: 4-6 Weeks Goal Progress: Progressing Goal 4:: Patient will improve his FGA by 2 points Goal Time Frame: 4-6 Weeks Goal Progress: Progressing Goal 5:: Patient will demo 5/5 in LE where deficit Goal Time Frame: 4-6 Weeks Goal Progress: Progressing Anticipated Interventions Patient/Client Instruction: Educate patient on: Benefits of Fitness Program Therapeutic Exercise to Include: Strength training, Endurance training, Balance training, Coordination, Agility training, Body mechanics, Postural training, Flexibilty training, Gait and locomotor training, Neuromotor development, Dynamic Lumbar Stabilization, Scapular Strength/Stabilization For the Purpose of:: To improve muscle performance and motor function Functional Training to Include: ADL Training, Gait training Please do not hesitate to contact me at [phone] by phone or if you have questions or concerns regarding this new plan of care! Sincerely, PADMA CookT
--- NOTE | 2021-03-02 14:32 | HP.PTREVAL ---
Dr. Julia Arceo, DO, It has been my pleasure to treat ARNULFO RUST over the last 21 visits for Balance and Gait Disturbance. Please see the progress note below for an update on the physical therapy plan of care! Subjective: Patient reports that he does not feel stable on uneven surfaces. 2 major falls in 2019 and in June- he feels that he is unstable. He feels that getting out of the chair has improved and he is able to do more endurance based exercises. He is able to do more side to side activities but still struggles to go backwards. Objective/Function: Posture: FH, RS- can correct but does not maintain. Gait: slightly antlagic- no AD- good debra Stairs: asc/desc 8 recip with 1 HR ROM: WFL. Strength: Core: fair, Left: Hip: 4+/5 throughout, Knee: 5/5, Ankle: 4+/5 Right: Hip: 5/5, Knee: 5/5, Ankle: 5/5. Flex: HS: severe, Gastroc: severe. Balance: See FGA Special Tests: TU.79, 13 sit to continuous pickling line pickler 30 seconds with UE and no foam- 10 sit to stands in 30 seconds no UE A and no foam. Plan Plan: 03/02/2021: 60 min next session to focus on pt comfort level with all exercises independently. Then down to 3x a week for 3 weeks for balance only- Ideas: outside on the grass, obstacle course. Goals Goal 1:: Patient will be I with HEP and progression Goal Time Frame: 4-6 Weeks Goal Progress: Progressing Goal 2:: Patient will ambulate >300 feet with a normalized gait pattern with LRD Goal Time Frame: 4-6 Weeks Goal Progress: Progressing Goal 3:: Patient will asc/desc 8 recip with 1 HR. Goal Time Frame: 4-6 Weeks Goal Progress: Progressing Goal 4:: Patient will improve his FGA by 2 points Goal Time Frame: 4-6 Weeks Goal Progress: Progressing Goal 5:: Patient will demo 5/5 in LE where deficit Goal Time Frame: 4-6 Weeks Goal Progress: Progressing Anticipated Interventions Patient/Client Instruction: Educate patient on: Benefits of Fitness Program Therapeutic Exercise to Include: Strength training, Endurance training, Balance training, Coordination, Agility training, Body mechanics, Postural training, Flexibilty training, Gait and locomotor training, Neuromotor development, Dynamic Lumbar Stabilization, Scapular Strength/Stabilization For the Purpose of:: To improve muscle performance and motor function Functional Training to Include: ADL Training, Gait training Please do not hesitate to contact me at [phone] by phone or if you have questions or concerns regarding this new plan of care! Sincerely, PADMA CookT
--- NOTE | 2021-04-13 16:00 | HP.PTDCSUM ---
It has been my pleasure to treat ARNULFO RUST referred by Dr. Julia Arceo DO, with the diagnosis of Balance and Gait Disturbance for a total of 32 visit(s). Discharge Date: Please see the following information for a summary of their discharge status. Subjective: He reports that he is disappointed in his balance- he knows that some of its vision. Just cane when in community and no AD at home- uses a cane out in the yard. % Improvement: 40 Objective/Function: See balance testing Goal 1:: Patient will be I with HEP and progression Goal Progress: Goal Met Goal 2:: Patient will ambulate >300 feet with a normalized gait pattern with LRD Goal Progress: Goal Met Goal 3:: Patient will asc/desc 8 recip with 1 HR. Goal Progress: Goal Met Goal 4:: Patient will improve his FGA by 2 points Goal Progress: Goal Met Goal 5:: Patient will demo 5/5 in LE where deficit Goal Progress: Progressing Plan: 04/13/2021: Discharge to home exercise program through [facility]. If there are questions or concerns regarding this patient's physical therapy, please feel free to call me at [phone]. Thank you for the referral of this patient. Sincerely, Ila Ross, PADMAT Balance/Gait/Functional tests - Balance/Special Test Scores Functional Gait Assessment Score: 26 % Disability: 13.3400
== END 2021-04-13 19:00 | disposition home or self-care (01) ==
LOC: PT 15:30
PROVIDERS: PCP Internal Medicine; Referring Provider Psychiatry & Neurology Clinical Neurophysiology; Visit Provider Psychiatry & Neurology Clinical Neurophysiology
DX: R26.9 Unspecified abnormalities of gait and mobility (principal)
CPT/HCPCS: 97110; 97116; 97162; 97164; 97750

== ENCOUNTER → 2021-05-14 15:36 | Outpatient (CLI) | payer MEDICARE, SELFPAY ==
[2021-05-14 17:02] LABS: Absolute Lymphocyte Count 2.62 X10^3/uL (0.83-4.51); Absolute Neutrophil Count 3.3 X10^3/uL (2.0-7.7); Basophil# 0.03 X10^3/uL; Basophil% 0.4 % (0-1); Eosinophil# 0.25 X10^3/uL; Eosinophils% 3.5 % (0-5); Hematocrit 42.4 % (40-54); Hemoglobin 13.4 g/dL (13.0-16.5); Lymphocyte # 2.62 X10^3/ul (0.83-4.51); Lymphocyte % 37.1 % (19-41); Mean Corp Hgb Conc 31.6 g/dL (32-36); Mean Corpuscular Hgb 31.5 pg (27.0-32.0); Mean Corpuscular Volume 99.8 fL (80-94); Monocyte# 0.86 X10^3/uL; Monocyte% 12.2 % (0-10); NRBC Flagged by Analyzer 0 % (0-5); Neutrophil # 3.29 X10^3/uL (2.7-7.7); Neutrophil % 46.5 % (47-70); Platelet Count 144 K/mm3 (150-450); RBC Distribution Width CV 13.7 % (11.6-14.6); RBC Distribution Width SD 49.9 fl (35.1-43.9); Red Blood Count 4.25 M/mm3 (4.6-6.2); White Blood Count 7.1 K/mm3 (4.4-11.0)
[2021-05-14 17:12] LABS: ALB/GLOB Ratio 0.8 RATIO (0.9-2.4); AST(SGOT) 37 U/L (15-37); Alanine Aminotransfer ALT/SGPT 35 U/L (16-61); Albumin, Serum 3.5 g/dL (3.2-5.0); Alkaline Phosphatase 87 U/L (45-117); Anion Gap 3 (5-15); BUN 13 mg/dL (7-18); BUN/Creat Ratio 17.5 RATIO (10-20); Calcium,Total 9.5 mg/dL (8.5-10.1); Chloride 101 mmol/L (98-107); Creatinine, Serum 0.74 mg/dL (0.70-1.30); EST Glomerular Filtration Rate 107 mL/min (>60); Est Glom Filt Rate - Afr Amer 129 mL/min (>60); Globulin 4.5 g/dL (2.2-4.2); Glucose 106 mg/dL (74-106); Potassium 4.3 mmol/L (3.5-5.1); Sodium Level 138 mmol/L (136-145)
== END ==
PROVIDERS: PCP Internal Medicine; Referring Provider Internal Medicine; Visit Provider Internal Medicine
DX: E78.5 Hyperlipidemia, unspecified (principal); I10 Essential (primary) hypertension
CPT/HCPCS: 36415; 80053; 85025

== ENCOUNTER 2021-07-23 09:07 | Inpatient (IN) | payer MEDICARE, SELFPAY ==
[2021-07-23] VITALS (13 sets, daily range): BP systolic 115–165; BP diastolic 64–80; PULSE 47–68; RESP 12–20; TEMP 36.4–36.6; O2SAT 95–99; BMI 33.1; BMI 31.7
--- NOTE | 2021-07-23 09:29 | EKG12_ITS ---
Test Reason : CHEST PAIN Blood Pressure : / mmHG Vent. Rate : 045 BPM Atrial Rate : 045 BPM P-R Int : 202 ms QRS Dur : 082 ms QT Int : 472 ms P-R-T Axes : 096 -18 078 degrees QTc Int : 408 ms Sinus bradycardia with Premature supraventricular complexes Otherwise normal ECG Confirmed by VICTOR MANUEL FREDERICK, GORDON ([id number]), tape editor AN KWON ([id number]) on 07/27/2021 10:13:12 A M Referred By: ZBIGNIEW Confirmed By:GUILLERMO RUSH MD
--- NOTE | 2021-07-23 09:31 | EDS_ITS ---
HPI History of Present Illness Chief Complaint: Chest Pain Onset/Context/Timing Onset: Weeks (1) Timing: Intermittent Quality: Positive for - (Dyspnea. No chest discomfort.) Current Severity: Gone Maximum Severity: Moderate Worsened By: Exertion Relieved By: NTG Associated Symptoms: Positive for Nausea (This a.m.) and Cough; Negative for Vomiting, Diaphoresis, Fever, Lightheadedness and Palpitations Narrative Narrative: Patient presenting with dyspnea that has been present for the past week, waxes and wanes, more with exertion, worse this morning. Has been wheezing off and on the entire time and has a history of asthma. He has had a minor cough and that last week as well. He has had no chest discomfort. He is concerned that this could be cardiac because he had stents placed in 2009 and again in 2017, and with both of these episodes he had no chest discomfort and dyspnea only. He has been vaccinated against Covid and denies any fevers or chills lately or contact with anyone that he knows of with COVID-19. He denies any leg pain or swelling. He denies any arm or jaw or neck or back discomfort with this this morning. He got up and was breathing worse so he did a albuterol treatment that did not help, then he took a nitroglycerin which did help and now he feels back to normal and relatively well. He had some diarrhea recently but he has diarrhea chronically off-and-on due to taking laxatives. He states it is no different. He took his medications this morning including aspirin. Patient states his normal resting heart rate is in the 40s. He thought his apple watch detected A. fib a day or 2 ago, however when he checked again his heart rate was below 50 and the watch cannot detect rhythm when the rate is that slow. [facility] Medical History Anginal equivalent Asthma Atherosclerosis of coronary artery of [place] heart without angina pectoris BPH (benign prostatic hyperplasia) Bradycardia Cholelithiasis without obstruction Closed vertical fracture of left patella Degenerative disc disease, cervical Essential hypertension Fall Fracture of triquetrum of left wrist Fracture of triquetrum of right wrist Glaucoma Glaucoma Heme + stool History of colon polyps History of pneumonia History of skin cancer Hyperlipidemia Hypertension Hyponatremia Iron deficiency anemia Liver disease Memory impairment Multiple fractures Nonrheumatic aortic valve stenosis Orthostatic hypotension Osteoarthritis Physical debility Primary biliary cirrhosis Psoriasis Psoriasis Rheumatoid arthritis Right foot pain Seasonal allergies Sinus bradycardia Thrombocytopenia Thrombocytopenia Home Medications aspirin 81 mg PO DAILY@0800 12/06/16 [History Last Taken 06/06/20] albuterol sulfate 90 mcg/actuation aerosol inhaler 2 puff INHALATION Q4H PRN g 05/25/19 [History Last Taken 06/06/20] brimonidine 1 drp EACH EYE BID 06/02/19 [History Last Taken 06/06/20] travoprost 1 drp EACH EYE QHS 06/02/19 [History Last Taken 06/06/20] acetaminophen 650 mg PO Q6H PRN PRN tab 06/09/20 [Rx Last Taken Unknown] baclofen 10 mg tablet 10 mg PO TID PRN 07/24/20 [History Last Taken Unknown] multivitamin 1 cap PO DAILY 07/24/20 [History Last Taken Unknown] magnesium oxide 500 mg tablet 1,500 mg PO QHS tab 08/05/20 [History Last Taken Unknown] famotidine 20 mg tablet 20 mg PO DAILY #90 tab 08/06/20 [Rx Last Taken Unknown] ezetimibe 10 mg tablet 10 mg PO DAILY #90 tab 09/29/20 [Rx Last Taken Unknown] cetirizine 10 mg capsule 10 mg PO DAILY 11/19/20 [History Last Taken Unknown] cholecalciferol (vitamin D3) 50 mcg (2,000 unit) tablet 50 mcg PO DAILY 11/19/20 [History Last Taken Unknown] cyanocobalamin (vitamin B-12) 1,000 mcg capsule 1,000 mcg PO DAILY 11/19/20 [History Last Taken Unknown] finasteride 5 mg tablet 5 mg PO DAILY tab 11/19/20 [History Last Taken Unknown] ursodiol 250 mg tablet 500 mg PO BIDCM 11/19/20 [History Last Taken Unknown] Arthritis Compound TOPICAL PRN 02/03/21 [History Last Taken Unknown] methylcellulose (with sugar) oral powder 1 tbsp PO DAILY PRN 02/03/21 [History Last Taken Unknown] netarsudil 0.02 % eye drops 1 drp OPHTHALMIC (EYE) DAILY 02/03/21 [History Last Taken Unknown] nitroglycerin 0.4 mg sublingual tablet 0.4 mg SUBLINGUAL Q5-15M PRN #25 tab 02/24/21 [Rx Last Taken Unknown] clobetasol 0.05 % topical cream 1 applic TOPICAL DAILY PRN #60 g 05/14/21 [Rx Last Taken Unknown] atorvastatin 20 mg tablet 20 mg PO QHS #90 tab 07/21/21 [Rx Last Taken Unknown] ferrous sulfate 325 mg PO QODAY 07/23/21 [History Last Taken Unknown] Allergy/AdvReac Type Severity Reaction Status Date / Time metoprolol [From Lopressor] Allergy Intermediate Shortness Verified 07/23/21 09:08 of breath Penicillins Allergy Rash Verified 07/23/21 09:08 Family History Father Hypertension Grandmother Hypertension Other Alcoholism Liver disease Surgical History History of appendectomy History of cataract extraction History of colon resection History of partial colectomy (~2003) Presence of stent in coronary artery Social History Smoking Status: Never smoker alcohol intake: current alcohol intake frequency: holidays/special occasions only substance use type: does not use caffeine: No what type of physical activity do you participate in: weight training ROS ROS ED Constitutional Constitutional ED: Denies body ache(s), chills or fever(s) Eyes Eyes: Denies change in vision or diplopia ENT ENT ED: Denies loss taste/smell, rhinorrhea or sore throat Cardiovascular Cardiovascular: Denies chest pain or palpitations Respiratory/Chest Respiratory/Chest: Reports cough and dyspnea Gastrointestinal Gastrointestinal: Reports diarrhea and nausea; Denies abdominal pain or vomiting Genitourinary Genitourinary ED: Denies dysuria or hematuria Musculoskeletal Musculoskeletal: Denies back pain or neck pain Integumentary Denies abscess or rash Neurologic Neurologic: Denies headache(s), paresthesias or weakness Psychiatric Psychiatric: Denies anxiety or suicidal thoughts EXAM Physical Exam Const Vital Signs: 07/23/21 09:08 07/23/21 09:11 07/23/21 09:41 Temperature 97.6 F L Temperature Source Oral Pulse Rate 49 L Respiratory Rate 16 Respiratory Effort Normal Non-Labored Respiratory Pattern Normal Blood Pressure 165/64 H Blood Pressure Mean 97 Pulse Ox 99 97 Oxygen Delivery Method Room Air Room Air 07/23/21 10:28 07/23/21 10:33 07/23/21 10:41 Temperature Temperature Source Pulse Rate 48 L 52 L 54 L Respiratory Rate 20 H 18 Respiratory Effort Respiratory Pattern Blood Pressure 158/75 H 155/68 H Blood Pressure Mean 102 Pulse Ox 96 Oxygen Delivery Method Room Air 07/23/21 11:07 Temperature Temperature Source Pulse Rate 47 L Respiratory Rate 13 Respiratory Effort Respiratory Pattern Blood Pressure 134/80 H Blood Pressure Mean 98 Pulse Ox 98 Oxygen Delivery Method Room Air Positive well nourished and well developed General Appearance ED: well developed and NAD HEENT Reports moist mucous membranes normocephalic and atraumatic Eyes PERRL and EOMs intact bilaterally Neck full ROM and supple Resp normal respiratory effort and clear to auscultation bilaterally Effort and Inspection: able to speak in complete sentences Cardio regular rate, regular rhythm and no JVD Rate: bradycardia Heart Sounds: murmur systolic III/ crescendo other (R 2nd ICS) GI non-tender and non-distended Auscultation: normoactive bowel sounds Palpation: soft Back/Spine no CVA tenderness General Back: other FROM Extremity normal to inspection and no calf tenderness General Extremety ED: Negative for edema, pulses abnormal or tenderness General Extremity: Negative for edema or pulses abnormal Neuro oriented x3, CN's II-XII intact bilaterally and no sensory deficits noted Sensorium / Orientation: awake and alert Motor Exam: strength 5/5 throughout Skin no rashes or lesions noted and no wounds Heart Score History: Slightly/Non-Suspicious ECG: Normal Age: >/= 65 years Risk Factors: >/= 3 Risk Factors or History of CAD Troponin: >1 - <3 Normal Limit Score: 5 MDM MDM MDM Narrative Medical decision making narrative: Patient is feeling better without symptoms currently, his work-up shows an elevated troponin in context of normal renal function and a normal bradycardic EKG. Discussed with cardiology and gave him some extra aspirin as well as nitroglycerin paste on his chest. They agreed with admission requested heparin, and states the plan is to cath either later today or early tomorrow. Discussed with hospitalist. Lab Data Attestation: I reviewed the patient's lab results. Labs: Laboratory Results - last 24 hr 07/23/21 07/23/21 09:38 09:38 WBC 6.0 RBC 4.07 L Hgb 12.8 L Hct 39.7 L MCV 97.5 H MCH 31.4 MCHC 32.2 RDW Std Deviation 50.1 H RDW Coeff of Angelia 13.9 Plt Count 126 L MPV 10.6 Immature Gran % (Auto) 0.200 Neut % (Auto) 56.4 Lymph % (Auto) 28.4 [place] % (Auto) 11.0 H Eos % (Auto) 3.3 Baso % (Auto) 0.7 Absolute Neuts (auto) 3.4 Absolute Lymphs (auto) 1.70 Nucleated RBC % 0 Sodium 140 Potassium 4.2 Chloride 102 Carbon Dioxide 33.0 H Anion Gap 5 BUN 14 Creatinine 0.76 Estim Creat Clear Calc 60.36 Est GFR (MDRD) Af Amer 126 Est GFR (MDRD) Non-Af 104 BUN/Creatinine Ratio 18.5 Glucose 105 Calcium 9.4 Troponin I High Sens 340 H* Radiography Diagnostic Testing: Clinical Impression(s) from Imaging Studies Chest X-Ray 07/23/21 10:15 IMPRESSION: Mild increased linear markings at the lung bases suggestive of linear atelectasis and/or scarring. Electronically Signed: Charbel Aguayo MD at 10:37 EDT , Service support , Rhythm Strip Rhythm Strip: Sinus bradycardia Rate: 51 Ectopy: PAC(s) EKG Initial EKG: Attestation: I personally reviewed and interpreted this EKG as follows: Interpretation: No Acute Injury Pattern and Sinus Bradycardia Comments: PAC otherwise normal EKG Prior EKG tracings: available for review Prior: Unchanged Discharge Plan Dx/Rx/DC Orders Clinical Impression: Unstable angina, Nonrheumatic aortic valve stenosis, CAD (coronary artery disease) Disposition Disposition: Acute Care Hospital [facility]
[2021-07-23 09:51] LABS: Absolute Neutrophil Count 3.4 X10^3/uL (2.0-7.7); Basophil# 0.04 X10^3/uL; Basophil% 0.7 % (0-1); Eosinophils% 3.3 % (0-5); Hematocrit 39.7 % (40-54); Hemoglobin 12.8 g/dL (13.0-16.5); Lymphocyte % 28.4 % (19-41); Mean Corp Hgb Conc 32.2 g/dL (32-36); Mean Corpuscular Hgb 31.4 pg (27.0-32.0); Mean Corpuscular Volume 97.5 fL (80-94); Mean Platelet Vol. 10.6 fl (6.2-12.0); Monocyte# 0.66 X10^3/uL; NRBC Flagged by Analyzer 0 % (0-5); Neutrophil # 3.37 X10^3/uL (2.7-7.7); Neutrophil % 56.4 % (47-70); Platelet Count 126 K/mm3 (150-450); RBC Distribution Width CV 13.9 % (11.6-14.6); RBC Distribution Width SD 50.1 fl (35.1-43.9); Red Blood Count 4.07 M/mm3 (4.6-6.2)
[2021-07-23 10:13] LABS: Anion Gap 5 (5-15); BUN 14 mg/dL (7-18); BUN/Creat Ratio 18.5 RATIO (10-20); Calcium,Total 9.4 mg/dL (8.5-10.1); Chloride 102 mmol/L (98-107); Creatinine, Serum 0.76 mg/dL (0.70-1.30); EST Glomerular Filtration Rate 104 mL/min (>60); Est Glom Filt Rate - Afr Amer 126 mL/min (>60); Estimated Creatinine Clearance 60.36 ml/min; Glucose 105 mg/dL (74-106); Potassium 4.2 mmol/L (3.5-5.1); Sodium Level 140 mmol/L (136-145); Troponin-I HS 340 pg/mL (3.0-78.0)
--- NOTE | 2021-07-23 10:15 | RAD_ITS ---
STUDY: X-RAY CHEST REASON FOR EXAM: Male, 86 years old. Dyspnea TECHNIQUE: PA and lateral views of the chest. COMPARISON: Comparison is made with prior examination dated 06/02/2019. FINDINGS: EKG electrodes are seen. Minimal increased markings at the lung bases suggestive of mild basilar atelectasis and/or linear scarring. There is no demonstrated pleural abnormality. Normal size heart. Normal mediastinum and tiara. Normal visualized pulmonary arteries. There is atherosclerotic calcification of the aortic arch with tortuosity. Normal visualized thoracic spine. Normal visualized ribs, clavicles, and shoulders. There is no demonstrated abnormality of the visualized soft tissue structures of the upper abdomen. RAD/Chest PA and Lateral IMPRESSION: Mild increased linear markings at the lung bases suggestive of linear atelectasis and/or scarring. Electronically Signed: Charbel Aguayo MD at 10:37 EDT , Service support ,
[2021-07-23] MEDS: Nitroglycerin Oint 1 INCH PACKET 0.5 INCH TD (10:41)
[2021-07-23] MEDS: Aspirin 81 MG TAB.CHEW 162 MG PO (10:44)
--- NOTE | 2021-07-23 11:12 | NURSING ---
DR BLAS FOR DR PEÑA
--- NOTE | 2021-07-23 11:15 | NURSING ---
PCU WAN UNSTABLE ANGINA
--- NOTE | 2021-07-23 11:36 | CASEMGMT ---
According to the [facility] website, the following are in-network tertiary facilities: [facility], [place], [facility], [facility], [facility], and . Joseph MUNIZ CM
--- NOTE | 2021-07-23 12:15 | PCM.HP.STD ---
HPI - General General Date of Admission: 07/23/21 HPI Narrative ARNULFO RUST, is a 86 M with history of coronary artery disease status post stents, nonrheumatic aortic valve stenosis came to ED for shortness of breath. Patient has shortness of breath on and off more with exertion for last 1 week. Patient has history of asthma and thought may be from asthma. As it did not get better he came to ER. In ED, twelve-lead EKG shows sinus bradycardia with PACs, ventricular rate 45 bpm. QTc 400 ms. He has chronic sinus bradycardia with previous EKG in May 2019 also showed bradycardia. Patient follows Dr. Correia last seen in the office in January 2021. Patient last stent was in 2016 and first 2 stents in 2009. Denies chest pain or discomfort or tightness. He denies dizziness or palpitation or passing out. First troponin is elevated. Patient is started on baby aspirin, heparin drip with bolus and ER physician talked to senior grants officer. He is admitted in PCU. [facility] Medical History Anginal equivalent Asthma Atherosclerosis of coronary artery of [place] heart without angina pectoris BPH (benign prostatic hyperplasia) Bradycardia Cholelithiasis without obstruction Closed vertical fracture of left patella Degenerative disc disease, cervical Essential hypertension Fall Fracture of triquetrum of left wrist Fracture of triquetrum of right wrist Glaucoma Glaucoma Heme + stool History of colon polyps History of pneumonia History of skin cancer Hyperlipidemia Hypertension Hyponatremia Iron deficiency anemia Liver disease Memory impairment Multiple fractures Nonrheumatic aortic valve stenosis Orthostatic hypotension Osteoarthritis Physical debility Primary biliary cirrhosis Psoriasis Psoriasis Rheumatoid arthritis Right foot pain Seasonal allergies Sinus bradycardia Thrombocytopenia Thrombocytopenia Home Medications aspirin 81 mg PO DAILY@0800 12/06/16 [History Last Taken 06/06/20] albuterol sulfate 90 mcg/actuation aerosol inhaler 2 puff INHALATION Q4H PRN g 05/25/19 [History Last Taken 06/06/20] brimonidine 1 drp EACH EYE BID 06/02/19 [History Last Taken 06/06/20] travoprost 1 drp EACH EYE QHS 06/02/19 [History Last Taken 06/06/20] acetaminophen 650 mg PO Q6H PRN PRN tab 06/09/20 [Rx Last Taken Unknown] baclofen 10 mg tablet 10 mg PO TID PRN 07/24/20 [History Last Taken Unknown] multivitamin 1 cap PO DAILY 07/24/20 [History Last Taken Unknown] magnesium oxide 500 mg tablet 1,500 mg PO QHS tab 08/05/20 [History Last Taken Unknown] famotidine 20 mg tablet 20 mg PO DAILY #90 tab 08/06/20 [Rx Last Taken Unknown] ezetimibe 10 mg tablet 10 mg PO DAILY #90 tab 09/29/20 [Rx Last Taken Unknown] cetirizine 10 mg capsule 10 mg PO DAILY 11/19/20 [History Last Taken Unknown] cholecalciferol (vitamin D3) 50 mcg (2,000 unit) tablet 50 mcg PO DAILY 11/19/20 [History Last Taken Unknown] cyanocobalamin (vitamin B-12) 1,000 mcg capsule 1,000 mcg PO DAILY 11/19/20 [History Last Taken Unknown] finasteride 5 mg tablet 5 mg PO DAILY tab 11/19/20 [History Last Taken Unknown] ursodiol 250 mg tablet 500 mg PO BIDCM 11/19/20 [History Last Taken Unknown] Arthritis Compound TOPICAL PRN 02/03/21 [History Last Taken Unknown] methylcellulose (with sugar) oral powder 1 tbsp PO DAILY PRN 02/03/21 [History Last Taken Unknown] netarsudil 0.02 % eye drops 1 drp OPHTHALMIC (EYE) DAILY 02/03/21 [History Last Taken Unknown] nitroglycerin 0.4 mg sublingual tablet 0.4 mg SUBLINGUAL Q5-15M PRN #25 tab 02/24/21 [Rx Last Taken Unknown] clobetasol 0.05 % topical cream 1 applic TOPICAL DAILY PRN #60 g 05/14/21 [Rx Last Taken Unknown] atorvastatin 20 mg tablet 20 mg PO QHS #90 tab 07/21/21 [Rx Last Taken Unknown] ferrous sulfate 325 mg PO QODAY 07/23/21 [History Last Taken Unknown] Allergy/AdvReac Type Severity Reaction Status Date / Time metoprolol [From Lopressor] Allergy Intermediate Shortness Verified 07/23/21 09:08 of breath Penicillins Allergy Rash Verified 07/23/21 09:08 Family History Father Hypertension Grandmother Hypertension Other Alcoholism Liver disease Surgical History History of appendectomy History of cataract extraction History of colon resection History of partial colectomy (~2003) Presence of stent in coronary artery Social History Smoking Status: Never smoker alcohol intake: current alcohol intake frequency: holidays/special occasions only substance use type: does not use caffeine: No what type of physical activity do you participate in: weight training ROS ROS Narrative Constitutional: Reports fatigue and weakness, arthritis. Had fall in the past. HEENT: Reports systems reviewed and no addt'l complaints, except as documented Respiratory/Chest: As described in HPI. Gastrointestinal: Primary biliary cholangitis. On [place]. Denies coffee ground emesis, hematemesis or vomiting Genitourinary: Denies burning urination or new urinary tract symptoms Musculoskeletal: Reports joint pain and limited range of motion Neurologic: Denies seizure-like activity skin: No ulcer. No rash Endocrinology: Reports systems reviewed and no addt'l complaints, except as documented Hematologic/Lymphatic: Reports systems reviewed and no addt'l complaints, except as documented Rest 12 ROS are negative except as mentioned in HPI Vital Signs Vital Signs Vital Signs: 07/23/21 09:08 07/23/21 09:11 07/23/21 09:41 Temperature 97.6 F L Temperature Source Oral Pulse Rate 49 L Respiratory Rate 16 Respiratory Effort Normal Non-Labored Respiratory Pattern Normal Blood Pressure 165/64 H Blood Pressure Mean 97 Pulse Ox 99 97 Oxygen Delivery Method Room Air Room Air 07/23/21 10:28 07/23/21 10:33 07/23/21 10:41 Temperature Temperature Source Pulse Rate 48 L 52 L 54 L Respiratory Rate 20 H 18 Respiratory Effort Respiratory Pattern Blood Pressure 158/75 H 155/68 H Blood Pressure Mean 102 Pulse Ox 96 Oxygen Delivery Method Room Air 07/23/21 11:07 07/23/21 11:46 Temperature 97.9 F Temperature Source Temporal Pulse Rate 47 L 49 L Respiratory Rate 13 12 Respiratory Effort Respiratory Pattern Blood Pressure 134/80 H 142/75 H Blood Pressure Mean 98 97 Pulse Ox 98 97 Oxygen Delivery Method Room Air Room Air Weight Weight: 244 lb 4.355 oz Body Mass Index (BMI) 33.1 Physical Exam Narrative General: Alert, Oriented x3, Cooperative HEENT: Atraumatic, PERRLA, EOMI, Normocephalic Oral: No Gingival or Mucosal Lesions/ Ulcerations Neck: Supple, No JVD, Negative Carotid Bruits Lungs: Air entry diminished in bilateral lung bases. No crepitation/rhonchi Cardiovascular: sinus bradycardia normal S1, Normal S2, faint grade 2/6 right second ICS ejection systolic murmur. Abdomen: Bowel Sounds Present, Soft, Non Tender, Non-Distended : No renal angle tenderness. No suprapubic tenderness. Extremities: No edema, Capillary Refill Less than 3 Seconds Skin: No rashes, No breakdown Musculoskeletal: No Tenderness to Palpation of Joints or Extremities Neurological: Cranial nerves II-XII grossly intact, DTR 2+/4 and Symmetrical, Neuro grossly intact Psych/Mental Status: Normal Affect, Appropriate. Results Lab / Micro Data Result Diagrams: 07/23/21 09:38 07/23/21 09:38 Labs: Laboratory Results - last 24 hr 07/23/21 09:38: WBC 6.0, RBC 4.07 L, Hgb 12.8 L, Hct 39.7 L, MCV 97.5 H, MCH 31.4, MCHC 32.2, RDW Std Deviation 50.1 H, RDW Coeff of Angelia 13.9, Plt Count 126 L, MPV 10.6, Immature Gran % (Auto) 0.200, Neut % (Auto) 56.4, Lymph % (Auto) 28.4, [place] % (Auto) 11.0 H, Eos % (Auto) 3.3, Baso % (Auto) 0.7, Absolute Neuts (auto) 3.4, Absolute Lymphs (auto) 1.70, Nucleated RBC % 0 07/23/21 09:38: Sodium 140, Potassium 4.2, Chloride 102, Carbon Dioxide 33.0 H, Anion Gap 5, BUN 14, Creatinine 0.76, Estim Creat Clear Calc 60.36, Est GFR (MDRD) Af Amer 126, Est GFR (MDRD) Non-Af 104, BUN/Creatinine Ratio 18.5, Glucose 105, Calcium 9.4, Troponin I High Sens 340 H* Micro: Microbiology 07/23/21 09:51 Nasal Secretion SARS-CoV-2 Antigen (Rapid) - Final Rhythm Strip Rhythm Strip: Sinus bradycardia Rate: 51 Ectopy: PAC(s) Radiology Impression Chest X-Ray 07/23/21 10:15 IMPRESSION: Mild increased linear markings at the lung bases suggestive of linear atelectasis and/or scarring. Electronically Signed: Charbel Aguayo MD at 10:37 EDT , Service support , Assessment & Plan Assessment/Plan (1) NSTEMI, initial episode of care: PLAN: 1. Non-STEMI with history of coronary artery status post stents: Patient is being admitted in PCU. Started on baby aspirin and heparin drip. Serial isolated troponin and repeat EKG. Storeroom Supervisor Dr. Montana is been consulted. Patient might need cath probably tomorrow. Patient last creatinine May 2019 shows D1 ostial 60%, proximal, mid LAD previous stent patent. Well findings reported no aortic valve stenosis or mitral insufficiency. Patient has mild thrombocytopenia watch 2. Hypertension: Lisinopril regimen. 4. Dyslipidemia on atorvastatin estimated. 5. Chronic back pain secondary to degenerative disc disease, history of fall: Patient had fall in May 2020 and had multiple fractures including patella, bilateral wrist nasal bone and was admitted here and then transferred to acute rehab. 6. Primary biliary cholangitis with mild thrombocytopenia -on ursodiol. 6. Patient has multiple other comorbidities which include psoriasis/rheumatoid arthritis, BPH, asthma glaucoma: Home medication reconciliation done Living will/advanced directive/end of life care: Patient does have living will or advanced directive. After discussion of benefits/risks procedures involved with full code, DNR CC arrest and DNR CC, the patient opted for DNR-CC Arrest with no intubation Patient does not want artificial life support including intubation, tube feed, ventilator and/chest compression, central venous catheter, vasopressor and DC shock if needed Total time spent in [id number] encounter in discussion of advanced directive 16 minutes. Charges/Coding Visit Charges Inpatient E&M: 51397 Disch Hosp
[2021-07-23] MEDS: Heparin Injection (Vial) 5,000 UNIT/ML VIAL 4000 UNIT IV (12:33)
[2021-07-23] MEDS: HEPARIN/D5w 25,000 UNITS 25,000 UNITS/250 ML IV.SOLN. 8 UNITS IV (12:45)
[2021-07-23 12:46] LABS: Partial Thromboplast Time 29.8 Seconds (24.1-36.2)
[2021-07-23 13:11] LABS: Magnesium 2.4 mg/dL (1.6-2.6)
--- NOTE | 2021-07-23 14:04 | ECHOD_ITS ---
Reason For Study: CAD/ASHD Procedure This was a 2D Doppler, Color Flow transthoracic echocardiogram. Exam performed portable in patient room. Left Ventricle Normal LV size. The estimated ejection fraction is 55 %. Unable to assess diastolic dysfunction. No regional wall motion abnormalities noted. Right Ventricle Normal RV size. Normal systolic function. Atria The left atrium is mildly enlarged. The right atrium is mildly enlarged. No doppler evidence for ASD. Mitral Valve There is no mitral valve stenosis. Trivial mitral valve insufficiency. Tricuspid Valve There is no tricuspid stenosis. Trivial tricuspid valve insufficiency. Pulmonary artery systolic pressure is 40 mmHg. Aortic Valve Moderate diffuse aortic valve thickening. Mild aortic stenosis. Mild (1+) aortic valve insufficiency. Pulmonic Valve There is no pulmonic valvular stenosis. No pulmonic valve insufficiency. Great Vessels Normal aortic root. Pericardium/Pleural No pericardial effusion. MMode/2D Measurements & Calculations LVIDd: 5.1 cm IVSd: 1.0 cm LVOT diam: 2.0 cm LVIDs: 3.5 cm LVPWd: 1.0 cm LVOT area: 3.1 cm2 RVDd: 4.1 cm FS: 30.5 % Ao root diam: 3.6 cm LAV(MOD-bp): 87.6 ml LVAd ap4: 38.5 cm2 LAV(MOD-bp) Indexed: 37.8 ml/m2 LVLd ap4: 8.2 cm LAV(MOD-sp2): 80.4 ml EDV(MOD-sp4): 145.6 ml LAV(MOD-sp4): 80.3 ml EDV(sp4-el): 153.8 ml LVAs ap4: 21.9 cm2 LVLs ap4: 7.1 cm ESV(MOD-sp4): 56.8 ml ESV(sp4-el): 57.7 ml EF(MOD-sp4): 61.0 % EF(sp4-el): 62.5 % SV(MOD-sp4): 88.8 ml SV(sp4-el): 96.2 ml LA A4 area: 24.7 cm2 LA dimension(2D): 4.0 cm RA A4 area: 21.8 cm2 Time Measurements MV dec time: 0.43 sec Doppler Measurements & Calculations MV E max frantz: 65.7 cm/sec Lat Peak E' Frantz: 9.1 cm/sec Med Peak E' Frantz: 5.3 cm/sec MV A max frantz: 84.6 cm/sec E/E' lat: 7.3 E/E' med: 12.3 MV E/A: 0.78 Ao V2 max: 271.6 cm/sec AI max frantz: 405.3 cm/sec LV V1 max: 116.2 cm/sec Ao max P.5 mmHg AI max P.7 mmHg LV V1 max P.4 mmHg Ao V2 mean: 184.6 cm/sec LV V1 mean P.6 mmHg Ao mean P.5 mmHg AI dec slope: 166.3 cm/sec2 LV V1 mean: 73.5 cm/sec Ao V2 VTI: 67.3 cm AI P1/2t: 714.1 msec LV V1 VTI: 29.8 cm SHRUTHI(I,D): 1.4 cm2 SHRUTHI(V,D): 1.3 cm2 SV(LVOT): 93.8 ml PA V2 max: 87.4 cm/sec TR max frantz: 307.7 cm/sec TR max P.9 mmHg ECHO/Echo Complete Interpretation Summary The estimated ejection fraction is 55 %. Unable to assess diastolic dysfunction. The left atrium is mildly enlarged. The right atrium is mildly enlarged. Trivial mitral valve insufficiency. Moderate diffuse aortic valve thickening. Mild aortic stenosis. Mild (1+) aortic valve insufficiency. Ordering Physician: Woody Montana Referring Physician: UMM WARD Performed By: Allyn Martinez RDCS
[2021-07-23 14:35] LABS: Troponin-I HS 365 pg/mL (3.0-78.0)
--- NOTE | 2021-07-23 14:39 | PCM.CONS.C ---
Assessment & Plan Assessment/Plan (1) Shortness of breath: PLAN: Will give 1 dose of Lasix to see if this helps. Agree with cycling cardiac enzymes. If troponin goes up then we will proceed with coronary angiography. If the troponin comes down then we will consider a stress test. It will be reasonable to check a 2D echo as well. Agree with IV heparin at this time. (2) NSTEMI, initial episode of care: PLAN: Agree with IV heparin. If troponin is trending down then we will consider stress testing. If the troponin goes up then we will proceed with coronary angiography. HPI Consult Data Date of Consult: 07/23/21 HPI Narrative HPI Narrative: ARNULFO RUST, is a 86 M who presents with shortness of breath. Patient has history of CAD status post PCI in the past. Prior to PCI in the past, he has had shortness of breath rather than chest pain. He last had a heart cath in 2019 when he had presented with similar symptoms. At that time he did not have any significant stenoses. His stents were widely patent. This time patient's troponin is around 300. He does have orthopnea. Patient does have history of mild aortic stenosis and was supposed to get a 2D echo today as an outpatient. Review of systems: All systems reviewed. All else is negative except that in the HPI. [facility] Medical History Anginal equivalent Asthma Atherosclerosis of coronary artery of [place] heart without angina pectoris BPH (benign prostatic hyperplasia) Bradycardia Cholelithiasis without obstruction Closed vertical fracture of left patella Degenerative disc disease, cervical Essential hypertension Fall Fracture of triquetrum of left wrist Fracture of triquetrum of right wrist Glaucoma Glaucoma Heme + stool History of colon polyps History of pneumonia History of skin cancer Hyperlipidemia Hypertension Hyponatremia Iron deficiency anemia Liver disease Memory impairment Multiple fractures Nonrheumatic aortic valve stenosis Orthostatic hypotension Osteoarthritis Physical debility Primary biliary cirrhosis Psoriasis Psoriasis Rheumatoid arthritis Right foot pain Seasonal allergies Sinus bradycardia Thrombocytopenia Thrombocytopenia Home Medications aspirin 81 mg PO DAILY@0800 12/06/16 [History Last Taken 06/06/20] albuterol sulfate 90 mcg/actuation aerosol inhaler 2 puff INHALATION Q4H PRN g 05/25/19 [History Last Taken 06/06/20] brimonidine 1 drp EACH EYE BID 06/02/19 [History Last Taken 06/06/20] travoprost 1 drp EACH EYE QHS 06/02/19 [History Last Taken 06/06/20] acetaminophen 650 mg PO Q6H PRN PRN tab 06/09/20 [Rx Last Taken Unknown] baclofen 10 mg tablet 10 mg PO TID PRN 07/24/20 [History Last Taken Unknown] multivitamin 1 cap PO DAILY 07/24/20 [History Last Taken Unknown] magnesium oxide 500 mg tablet 1,500 mg PO QHS tab 08/05/20 [History Last Taken Unknown] famotidine 20 mg tablet 20 mg PO DAILY #90 tab 08/06/20 [Rx Last Taken Unknown] ezetimibe 10 mg tablet 10 mg PO DAILY #90 tab 09/29/20 [Rx Last Taken Unknown] cetirizine 10 mg capsule 10 mg PO DAILY 11/19/20 [History Last Taken Unknown] cholecalciferol (vitamin D3) 50 mcg (2,000 unit) tablet 50 mcg PO DAILY 11/19/20 [History Last Taken Unknown] cyanocobalamin (vitamin B-12) 1,000 mcg capsule 1,000 mcg PO DAILY 11/19/20 [History Last Taken Unknown] finasteride 5 mg tablet 5 mg PO DAILY tab 11/19/20 [History Last Taken Unknown] ursodiol 250 mg tablet 500 mg PO BIDCM 11/19/20 [History Last Taken Unknown] Arthritis Compound TOPICAL PRN 02/03/21 [History Last Taken Unknown] methylcellulose (with sugar) oral powder 1 tbsp PO DAILY PRN 02/03/21 [History Last Taken Unknown] netarsudil 0.02 % eye drops 1 drp OPHTHALMIC (EYE) DAILY 02/03/21 [History Last Taken Unknown] nitroglycerin 0.4 mg sublingual tablet 0.4 mg SUBLINGUAL Q5-15M PRN #25 tab 02/24/21 [Rx Last Taken Unknown] clobetasol 0.05 % topical cream 1 applic TOPICAL DAILY PRN #60 g 05/14/21 [Rx Last Taken Unknown] atorvastatin 20 mg tablet 20 mg PO QHS #90 tab 07/21/21 [Rx Last Taken Unknown] ferrous sulfate 325 mg PO QODAY 07/23/21 [History Last Taken Unknown] Allergy/AdvReac Type Severity Reaction Status Date / Time metoprolol [From Lopressor] Allergy Intermediate Shortness Verified 07/23/21 09:08 of breath Penicillins Allergy Rash Verified 07/23/21 09:08 Family History Father Hypertension Grandmother Hypertension Other Alcoholism Liver disease Surgical History History of appendectomy History of cataract extraction History of colon resection History of partial colectomy (~2003) Presence of stent in coronary artery Social History Smoking Status: Never smoker alcohol intake: current alcohol intake frequency: holidays/special occasions only substance use type: does not use caffeine: No what type of physical activity do you participate in: weight training Physical Exam Const alert and oriented x3 Orientation / Consciousness: awake HEENT normocephalic Chest inspection of chest normal Resp Auscultation: crackles bilateral base Cardio regular rate Extremity no pedal edema Skin no rashes or lesions noted Neuro oriented x3 Psych mental status grossly normal Risk Stratification Risk Stratification Applicable: No Charges/Coding Visit Charges Inpatient E&M: 74642 Init Hosp L2 Objective Data Vital Signs: Vital Signs Temp Pulse Resp BP Pulse Ox 97.7 F L 52 L 16 160/73 H 99 07/23/21 14:19 07/23/21 14:19 07/23/21 14:19 07/23/21 14:19 07/23/21 14:19 Oxygen Delivery Method Room Air Weight: 234 lb Body Mass Index (BMI) 31.7 Lab / Micro Data Result Diagrams: 07/23/21 09:38 07/23/21 09:38 Labs: Laboratory Results - last 24 hr 07/23/21 09:38: WBC 6.0, RBC 4.07 L, Hgb 12.8 L, Hct 39.7 L, MCV 97.5 H, MCH 31.4, MCHC 32.2, RDW Std Deviation 50.1 H, RDW Coeff of Angelia 13.9, Plt Count 126 L, MPV 10.6, Immature Gran % (Auto) 0.200, Neut % (Auto) 56.4, Lymph % (Auto) 28.4, [place] % (Auto) 11.0 H, Eos % (Auto) 3.3, Baso % (Auto) 0.7, Absolute Neuts (auto) 3.4, Absolute Lymphs (auto) 1.70, Nucleated RBC % 0 07/23/21 09:38: Sodium 140, Potassium 4.2, Chloride 102, Carbon Dioxide 33.0 H, Anion Gap 5, BUN 14, Creatinine 0.76, Estim Creat Clear Calc 60.36, Est GFR (MDRD) Af Amer 126, Est GFR (MDRD) Non-Af 104, BUN/Creatinine Ratio 18.5, Glucose 105, Calcium 9.4, Troponin I High Sens 340 H* 07/23/21 09:38: Magnesium 2.4 07/23/21 12:20: PT 13.0, INR 1.0, APTT 29.8 07/23/21 13:50: Troponin I High Sens 365 H* Micro: Microbiology 07/23/21 09:51 Nasal Secretion SARS-CoV-2 Antigen (Rapid) - Final Rhythm Strip Rhythm Strip: Sinus bradycardia Rate: 51 Ectopy: PAC(s) Cardiology Labs/Tests 07/23/21 09:38: WBC 6.0, RBC 4.07 L, Hgb 12.8 L, Hct 39.7 L, MCV 97.5 H, MCH 31.4, MCHC 32.2, Plt Count 126 L, MPV 10.6, Immature Gran % (Auto) 0.200, Neut % (Auto) 56.4, Lymph % (Auto) 28.4, [place] % (Auto) 11.0 H, Eos % (Auto) 3.3, Baso % (Auto) 0.7, Absolute Neuts (auto) 3.4, Nucleated RBC % 0 07/23/21 09:38: Sodium 140, Potassium 4.2, Chloride 102, Carbon Dioxide 33.0 H, Anion Gap 5, BUN 14, Creatinine 0.76, Est GFR (MDRD) Af Amer 126, Est GFR (MDRD) Non-Af 104, BUN/Creatinine Ratio 18.5, Glucose 105, Calcium 9.4 07/23/21 09:38: Magnesium 2.4 07/23/21 12:20: PT 13.0, INR 1.0, APTT 29.8 Rhythm: EKG: ECHO: Stress Test: Cardiac Cath: PCI: CT Surgery: Holter monitor: EPS: PPM: CXR: Chest CT Scan: Radiography Diagnostic Testing: Radiology Impression Chest X-Ray 07/23/21 10:15 IMPRESSION: Mild increased linear markings at the lung bases suggestive of linear atelectasis and/or scarring. Electronically Signed: Charbel Aguayo MD at 10:37 EDT , Service support ,
[2021-07-23 16:50] LABS: Troponin-I HS 318 pg/mL (3.0-78.0)
[2021-07-23] MEDS: Furosemide 40 MG/4 ML Vial IV (16:50)
--- NOTE | 2021-07-23 17:02 | PCS.PANDOC ---
PANDEMIC DOCUMENTATION INITIATED: Date: 05/04/2021 Time: 190
[2021-07-23] MEDS: Ursodiol 250 MG Tablet 500 MG PO (17:41)
[2021-07-23 18:53] LABS: Partial Thromboplast Time 58.3 Seconds (24.1-36.2)
[2021-07-23] MEDS: Atorvastatin Calcium 20 MG Tablet PO (21:07)
[2021-07-23] MEDS: BRIMONIDINE TARTRATE 5 ML DROPS 1 ML OPHTHALMIC (21:25)
[2021-07-24] VITALS (7 sets, daily range): BP systolic 121–139; BP diastolic 71–83; PULSE 39–57; RESP 16–17; TEMP 36.6–36.7; O2SAT 94–98
[2021-07-24] MEDS: MELATONIN 3 MG TABLET PO (00:38)
[2021-07-24 00:42] LABS: Partial Thromboplast Time 55.2 Seconds (24.1-36.2)
--- NOTE | 2021-07-24 06:00 | EKG12_ITS ---
Test Reason : AM EKG Blood Pressure : / mmHG Vent. Rate : 049 BPM Atrial Rate : 049 BPM P-R Int : 216 ms QRS Dur : 084 ms QT Int : 498 ms P-R-T Axes : 042 -08 055 degrees QTc Int : 449 ms Sinus bradycardia with 1st degree A-V block with Premature atrial complexes Otherwise normal ECG Confirmed by JOMAR FREDERICK, HALEY ([id number]), manager editorial AN KWON ([id number]) on 07/27/2021 11:15:48 AM Referred By: WAN Confirmed By:HALEY HADLEY MD
[2021-07-24] MEDS: Aspirin E.C. 81 MG Tablet PO (06:01)
[2021-07-24] MEDS: 0.9% Saline Lock 10 ML Syringe IV (06:02)
[2021-07-24 07:01] LABS: Absolute Lymphocyte Count 2.03 X10^3/uL (0.83-4.51); Absolute Neutrophil Count 2.9 X10^3/uL (2.0-7.7); Basophil# 0.03 X10^3/uL; Basophil% 0.5 % (0-1); Eosinophils% 5.1 % (0-5); Hematocrit 39.8 % (40-54); Hemoglobin 13.2 g/dL (13.0-16.5); Lymphocyte # 2.03 X10^3/ul (0.83-4.51); Lymphocyte % 34.2 % (19-41); Mean Corp Hgb Conc 33.2 g/dL (32-36); Mean Corpuscular Hgb 31.7 pg (27.0-32.0); Mean Corpuscular Volume 95.4 fL (80-94); Mean Platelet Vol. 10.9 fl (6.2-12.0); Monocyte# 0.68 X10^3/uL; Monocyte% 11.5 % (0-10); NRBC Flagged by Analyzer 0 % (0-5); Neutrophil # 2.88 X10^3/uL (2.7-7.7); Neutrophil % 48.5 % (47-70); Platelet Count 127 K/mm3 (150-450); RBC Distribution Width SD 49.1 fl (35.1-43.9); Red Blood Count 4.17 M/mm3 (4.6-6.2); White Blood Count 5.9 K/mm3 (4.4-11.0)
[2021-07-24 07:10] LABS: Partial Thromboplast Time 48.7 Seconds (24.1-36.2)
[2021-07-24 07:42] LABS: Anion Gap 7 (5-15); BUN 15 mg/dL (7-18); BUN/Creat Ratio 20.2 RATIO (10-20); Calcium,Total 9.4 mg/dL (8.5-10.1); Chloride 101 mmol/L (98-107); Cholesterol 120 mg/dL (200); Creatinine, Serum 0.74 mg/dL (0.70-1.30); EST Glomerular Filtration Rate 107 mL/min (>60); Est Glom Filt Rate - Afr Amer 129 mL/min (>60); Estimated Creatinine Clearance 60.36 ml/min; Glucose 99 mg/dL (74-106); High Density Lipoprotein 53 mg/dL; Potassium 3.8 mmol/L (3.5-5.1); Sodium Level 137 mmol/L (136-145); Thyroid Stim Hormone (TSH) 1.92 uIU/mL (0.358-3.74); Triglycerides 100 mg/dL; Very Low Density Lipoprotein 20 mg/dL (5-40)
[2021-07-24] MEDS: BRIMONIDINE TARTRATE 5 ML DROPS 1 ML OPHTHALMIC (10:19)
[2021-07-24] MEDS: Famotidine 20 MG Tablet PO (10:19)
[2021-07-24] MEDS: Multivitamins,Therapeutic Tablet 1 TABLET PO (10:19)
[2021-07-24] MEDS: Loratadine 10 MG Tablet PO (10:19)
[2021-07-24] MEDS: Ursodiol 250 MG Tablet 500 MG PO (10:19)
[2021-07-24] MEDS: Ezetimibe 10 MG Tablet PO (10:20)
[2021-07-24] MEDS: Cholecalciferol (VIT D3) 25 MCG TABLET (1,000 UNITS) 50 MCG PO (10:20)
[2021-07-24] MEDS: NETARSUDIL MESYLATE 1 DRP OPHTHALMIC (10:20)
[2021-07-24] MEDS: Finasteride 5 MG Tablet PO (10:20)
[2021-07-24] MEDS: Cyanocobalamin 500 MCG Tablet 1000 MCG PO (10:20)
--- NOTE | 2021-07-24 10:45 | CASEMGMT ---
CRISTY DIALLO assessment: Face to Face with patient for initial transition planning/care coordination assessment. CRISTY DIALLO introduced self and role at [facility], pt voices understanding and consents to assessment. Pt is sitting up in chair in no distress on room air. Pt is A/Ox4 and answers all questions appropriately. Pt's at bedside during assessment. Care providers, pharmacy, and demographics verified. Presentation: Pt c/o chest pressure/SOB since this am Admitting dx: NSTEMI PCP: Shelbi Specialists: Nan cardio; lebron Carrero Preferred Pharmacy: [facility] Insurance: [employer] Prescription Benefit: [employer] Living Will/HPOA: Pt has LW/HPOA and is aware that they are on file at [facility]. Pt's , Marlene Carey, is HPOA. LNOK: Marlene Carey, Living Arrangements: Pt lives with with in 1 story home and states no concerns at home. Pt is independent with ADL's. Transportation: Pt states drives and states no transportation concerns. DME/HHC: Pt has the following DME: cane, BSC, walker x2, grab bars, and tub bench. Pt states no need for any further DME. Pt states has has [facility] HHC and OP in the past. Pt states has also been to TCU in the past. Pt states no concerns with going home at time of discharge. Pt is retired. Pt states does not smoke cigarettes but does occasionally drink ETOH. Pt voices no further concerns/needs. CM to follow for any further discharge planning/needs. Advised pt to ask for CM if any further questions/concerns/needs arise, voices understanding. Pt Goal: Home Plan[place] CRISTY DIALLO
--- NOTE | 2021-07-24 11:09 | PCM.DC ---
Discharge Instructions Diet Discharge Diet: Low fat / Low cholesterol and 2000 mg Sodium Diet Activity Discharge Activity: Return to Normal Activity and May Not Drive Dressing / Incision Call your doctor if you observe: Fever of 101 or Higher, Coldness, Increased Pain, Numbness or Tingling, Change in Color, Inability to urinate, Inability to have a bowel movement, Shortness of breath, Dizziness, Fainting spells, Swelling in the ankles, Chest pain, Prolonged hiccupping, Increased palpitations (irregular heartbeat), Calf discomfort and Uncontrolled pain Follow Up Care Test Results: Test results from this visit will be discussed in further detail at your follow-up appointment, if applicable. Discharge Plan Admission Admit Date/Time: 07/23/21 11:12 Primary Reason for Your Visit: Exertional dyspnea Attending Provider: Jeffrey Berkowitz Primary Care Provider: Addi Mario Consulting Providers: Woody Montana Discharge Orders/Prescriptions Prescriptions: Continued albuterol sulfate [Ventolin HFA] 90 mcg/actuation HFA aerosol inhaler 2 puff INHALATION Q4H PRN (Reason: Asthma) RF: 0 magnesium oxide [Tobin] 500 mg tablet 1,500 mg PO QHS RF: 0 famotidine 20 mg tablet 20 mg PO DAILY Qty: 90 RF: 3 baclofen 10 mg tablet 10 mg PO TID PRN (Reason: Pain) RF: 0 multivitamin capsule 1 cap PO DAILY RF: 0 Citrucel (sucrose) Powder 1 tbsp PO DAILY PRN (Reason: Constipation) RF: 0 Arthritis Compound TOPICAL PRN (Reason: Pain) RF: 0 finasteride 5 mg tablet 5 mg PO DAILY RF: 0 cyanocobalamin (vitamin B-12) 1,000 mcg capsule 1,000 mcg PO DAILY RF: 0 cholecalciferol (vitamin D3) 50 mcg (2,000 unit) tablet 50 mcg PO DAILY RF: 0 clobetasol 0.05 % cream 1 applic TOPICAL DAILY PRN (Reason: rash) Qty: 60 RF: 2 aspirin 81 MG tablet 81 mg PO DAILY@0800 RF: 0 ursodiol 250 mg tablet 500 mg PO BIDCM RF: 0 travoprost 1 DROP bottle 1 drp EACH EYE QHS RF: 0 brimonidine 5 ML drops 1 drp EACH EYE BID RF: 0 cetirizine 10 mg capsule 10 mg PO DAILY RF: 0 acetaminophen 325 MG tablet 650 mg PO Q6H PRN PRN (Reason: Pain Score 1-10/Temp > 100.7 F) RF: 0 netarsudil 0.02 % drops 1 drp ophthalmic (eye) DAILY RF: 0 ferrous sulfate 325 mg (65 mg iron) tablet 325 mg PO QODAY RF: 0 ezetimibe 10 mg tablet 10 mg PO DAILY Qty: 90 RF: 3 nitroglycerin 0.4 mg tablet, sublingual 0.4 mg SUBLINGUAL Q5-15M PRN (Reason: chest pain) Qty: 25 RF: 3 atorvastatin 20 mg tablet 20 mg PO QHS Qty: 90 RF: 3 Referrals / Follow Up: Quentin Beltran DO [STAFF PHYSICIAN] - Within 1 Month (For exertional dyspnea and basilar crepitation possibility of interstitial lung disease, outpatient PFT) Addi Mario MD [Primary Care Provider] - Within 2 Weeks Woody Montana MD [STAFF PHYSICIAN] - Within 1 Month (Coronary artery disease, mild aortic stenosis) Disposition Disposition (needs filled in before D/C Order can be placed): Home, Self Care
--- NOTE | 2021-07-24 13:21 | PCM.DC.SUM ---
Providers Date of Admission: 07/23/21 Primary Care Physician: Dr. Umm Ward MD Consultations 07/23/21 12:36 Consult: Cardiology Routine Consulting Provider: Woody Montana Reason for Consult: NSTEMI EMERGENT Consult: No MD Notified: Yes Date Notified: 07/23/21 Time Notified: 11:37 Method of Notification: Verbal Reason For Visit: NSTEMI Diagnosis Discharge Diagnosis (1) Shortness of breath: Status: Acute Code(s): R06.02 - Shortness of breath (2) NSTEMI, initial episode of care: Status: Acute Code(s): I21.4 - Non-ST elevation (NSTEMI) myocardial infarction Medications at Discharge Home Medications aspirin 81 mg PO DAILY@0800 12/06/16 albuterol sulfate 90 mcg/actuation aerosol inhaler 2 puff INHALATION Q4H PRN g 05/25/19 brimonidine 1 drp EACH EYE BID 06/02/19 travoprost 1 drp EACH EYE QHS 06/02/19 acetaminophen 650 mg PO Q6H PRN PRN tab 06/09/20 baclofen 10 mg tablet 10 mg PO TID PRN 07/24/20 multivitamin 1 cap PO DAILY 07/24/20 magnesium oxide 500 mg tablet 1,500 mg PO QHS tab 08/05/20 famotidine 20 mg tablet 20 mg PO DAILY #90 tab 08/06/20 ezetimibe 10 mg tablet 10 mg PO DAILY #90 tab 09/29/20 cetirizine 10 mg capsule 10 mg PO DAILY 11/19/20 cholecalciferol (vitamin D3) 50 mcg (2,000 unit) tablet 50 mcg PO DAILY 11/19/20 cyanocobalamin (vitamin B-12) 1,000 mcg capsule 1,000 mcg PO DAILY 11/19/20 finasteride 5 mg tablet 5 mg PO DAILY tab 11/19/20 ursodiol 250 mg tablet 500 mg PO BIDCM 11/19/20 Arthritis Compound TOPICAL PRN 02/03/21 methylcellulose (with sugar) oral powder 1 tbsp PO DAILY PRN 02/03/21 netarsudil 0.02 % eye drops 1 drp OPHTHALMIC (EYE) DAILY 02/03/21 nitroglycerin 0.4 mg sublingual tablet 0.4 mg SUBLINGUAL Q5-15M PRN #25 tab 02/24/21 clobetasol 0.05 % topical cream 1 applic TOPICAL DAILY PRN #60 g 05/14/21 atorvastatin 20 mg tablet 20 mg PO QHS #90 tab 07/21/21 ferrous sulfate 325 mg PO QODAY 07/23/21 Hospital Course Summary of Care Provided Hospital Course: This 86-year-old gentleman with history of coronary artery status post stents, aortic valve stenosis and mild AI is being admitted for exertional dyspnea on and off for last 1 week. Patient denies any chest pain/pressure or tightness. Patient admitted in PCU. Serial isolated troponins shows elevation but trending down. Subsequently, cardiac stress and 2D echo was done. 2D echo shows preserved EF with mild aortic stenosis and AI. Stress test did not show any acute stress-induced ischemia. Community Association Manager felt mild basal crepitation and Lasix did not make any difference. He does not have active/acute cardiac reason for exertional dyspnea therefore wanted pulmonary evaluation as an outpatient with PFT. Subsequently, after discussion with freight engineer, referral was made to Dr. Beltran. His home medications continued. His cardiac cath from last time was reviewed by sterile technician did not show any significant arrhythmia and borderline stenosis. Discharge diagnosis: Elevated high-sensitivity troponin but no cardiac cause found. Probably type II UT, demand ischemia He other comorbidities hypertension, dyslipidemia, primary biliary cholangitis, mild thrombocytopenia are well controlled. Discharge medication reconciliation done. Discharge follow-up instructions completed. Discharge process discussed with the patient and all questions were answered to patient's satisfaction. Total time spent, exact 35 minutes on discharge meds reconciliation, examination, coordination of care with nurses and ancillary staff, review of imaging and blood test and discussion with the patient on follow-up instructions Physical Exam Narrative General: Alert, Oriented x3, Cooperative HEENT: Atraumatic, PERRLA, EOMI, Normocephalic Oral: No Gingival or Mucosal Lesions/ Ulcerations Neck: Supple, No JVD, Negative Carotid Bruits Lungs: Air entry diminished in bilateral lung bases. No crepitation/rhonchi Cardiovascular: sinus bradycardia normal S1, Normal S2, faint grade 2/6 right second ICS ejection systolic and diastolic murmur. Abdomen: Bowel Sounds Present, Soft, Non Tender, Non-Distended : No renal angle tenderness. No suprapubic tenderness. Extremities: No edema, Capillary Refill Less than 3 Seconds Skin: No rashes, No breakdown Musculoskeletal: No Tenderness to Palpation of Joints or Extremities Neurological: Cranial nerves II-XII grossly intact, DTR 2+/4 and Symmetrical, Neuro grossly intact Psych/Mental Status: Normal Affect, Appropriate. Weight / BMI Weight Weight: 234 lb Body Mass Index (BMI) 31.7 ABG / Lab / Microbiology Data Result Diagrams: 07/24/21 05:48 07/24/21 05:48 Laboratory: Laboratory Results - last 24 hr 07/23/21 13:50: Troponin I High Sens 365 H* 07/23/21 15:35: Troponin I High Sens 318 H* 07/23/21 18:37: APTT 58.3 H 07/24/21 00:25: APTT 55.2 H 07/24/21 05:48: WBC 5.9, RBC 4.17 L, Hgb 13.2, Hct 39.8 L, MCV 95.4 H, MCH 31.7, MCHC 33.2, RDW Std Deviation 49.1 H, RDW Coeff of Angelia 14.0, Plt Count 127 L, MPV 10.9, Immature Gran % (Auto) 0.200, Neut % (Auto) 48.5, Lymph % (Auto) 34.2, [place] % (Auto) 11.5 H, Eos % (Auto) 5.1 H, Baso % (Auto) 0.5, Absolute Neuts (auto) 2.9, Absolute Lymphs (auto) 2.03, Nucleated RBC % 0 07/24/21 05:48: Sodium 137, Potassium 3.8, Chloride 101, Carbon Dioxide 29.0, Anion Gap 7, BUN 15, Creatinine 0.74, Estim Creat Clear Calc 60.36, Est GFR (MDRD) Af Amer 129, Est GFR (MDRD) Non-Af 107, BUN/Creatinine Ratio 20.2 H, Glucose 99, Calcium 9.4, Triglycerides 100, Cholesterol 120, LDL Cholesterol 47, VLDL Cholesterol 20, HDL Cholesterol 53, TSH 1.92 07/24/21 05:48: APTT 48.7 H Microbiology: Microbiology 07/23/21 09:51 Nasal Secretion SARS-CoV-2 Antigen (Rapid) - Final Radiography Diagnostic Testing: Radiology Impression Echocardiogram 07/23/21 14:04 Interpretation Summary The estimated ejection fraction is 55 %. Unable to assess diastolic dysfunction. The left atrium is mildly enlarged. The right atrium is mildly enlarged. Trivial mitral valve insufficiency. Moderate diffuse aortic valve thickening. Mild aortic stenosis. Mild (1+) aortic valve insufficiency. Ordering Physician: Woody Montana Referring Physician: UMM WARD Performed By: Allyn Martinez RDCS D/C Instructions Discharge Diet: Low fat / Low cholesterol and 2000 mg Sodium Diet Call your doctor if you observe: Fever of 101 or Higher, Coldness, Increased Pain, Numbness or Tingling, Change in Color, Inability to urinate, Inability to have a bowel movement, Shortness of breath, Dizziness, Fainting spells, Swelling in the ankles, Chest pain, Prolonged hiccupping, Increased palpitations (irregular heartbeat), Calf discomfort and Uncontrolled pain Meaningful Use Info Meaningful Use Diagnoses (Choose all that apply): None applicable Discharge Plan Admission Admit Date/Time: 07/23/21 11:12 Primary Reason for Your Visit: Exertional dyspnea Attending Provider: Jeffrey Berkowitz Primary Care Provider: Umm Ward Consulting Providers: Woody Montana Discharge Orders/Prescriptions Prescriptions: Continued albuterol sulfate [Ventolin HFA] 90 mcg/actuation HFA aerosol inhaler 2 puff INHALATION Q4H PRN (Reason: Asthma) RF: 0 magnesium oxide [Tobin] 500 mg tablet 1,500 mg PO QHS RF: 0 famotidine 20 mg tablet 20 mg PO DAILY Qty: 90 RF: 3 baclofen 10 mg tablet 10 mg PO TID PRN (Reason: Pain) RF: 0 multivitamin capsule 1 cap PO DAILY RF: 0 Citrucel (sucrose) Powder 1 tbsp PO DAILY PRN (Reason: Constipation) RF: 0 Arthritis Compound TOPICAL PRN (Reason: Pain) RF: 0 finasteride 5 mg tablet 5 mg PO DAILY RF: 0 cyanocobalamin (vitamin B-12) 1,000 mcg capsule 1,000 mcg PO DAILY RF: 0 cholecalciferol (vitamin D3) 50 mcg (2,000 unit) tablet 50 mcg PO DAILY RF: 0 clobetasol 0.05 % cream 1 applic TOPICAL DAILY PRN (Reason: rash) Qty: 60 RF: 2 aspirin 81 MG tablet 81 mg PO DAILY@0800 RF: 0 ursodiol 250 mg tablet 500 mg PO BIDCM RF: 0 travoprost 1 DROP bottle 1 drp EACH EYE QHS RF: 0 brimonidine 5 ML drops 1 drp EACH EYE BID RF: 0 cetirizine 10 mg capsule 10 mg PO DAILY RF: 0 acetaminophen 325 MG tablet 650 mg PO Q6H PRN PRN (Reason: Pain Score 1-10/Temp > 100.7 F) RF: 0 netarsudil 0.02 % drops 1 drp ophthalmic (eye) DAILY RF: 0 ferrous sulfate 325 mg (65 mg iron) tablet 325 mg PO QODAY RF: 0 ezetimibe 10 mg tablet 10 mg PO DAILY Qty: 90 RF: 3 nitroglycerin 0.4 mg tablet, sublingual 0.4 mg SUBLINGUAL Q5-15M PRN (Reason: chest pain) Qty: 25 RF: 3 atorvastatin 20 mg tablet 20 mg PO QHS Qty: 90 RF: 3 Referrals / Follow Up: Quentin Beltran DO [STAFF PHYSICIAN] - 09/23/21 2:15 pm (For exertional dyspnea and basilar crepitation possibility of interstitial lung disease, outpatient PFT. This is the soonest available apt. ) Umm Ward MD [Primary Care Provider] - Within 2 Weeks Woody Montana MD [STAFF PHYSICIAN] - 08/18/21 1:45 pm (Coronary artery disease, mild aortic stenosis) Disposition Disposition (needs filled in before D/C Order can be placed): Home, Self Care Charges/Coding Visit Charges Inpatient E&M: 00479 Disch Hosp
--- NOTE | 2021-07-24 13:30 | PN.CARD_ITS ---
Subjective Subjective Patient is doing well. He has been walking around the hallways without significant dyspnea. He feels the Lasix really did not make a big difference in his symptoms. Objective Data Vital Signs: Vital Signs Temp Pulse Resp BP Pulse Ox 97.8 F 57 L 16 133/83 H 94 07/24/21 10:52 07/24/21 10:52 07/24/21 10:52 07/24/21 10:52 07/24/21 10:52 Oxygen Delivery Method Room Air Weight: 234 lb Body Mass Index (BMI) 31.7 Intake & Output: Intake and Output for Last 24 Hours 07/22/21 07/23/21 07/24/21 23:59 23:59 23:59 Intake Total 480 / 800 578.27 / 578.27 Output Total 1025 / 1025 Balance 480 / 800 -446.73 / -446.73 Lab / Micro Data Result Diagrams: 07/24/21 05:48 07/24/21 05:48 Labs: Laboratory Results - last 24 hr 07/23/21 13:50: Troponin I High Sens 365 H* 07/23/21 15:35: Troponin I High Sens 318 H* 07/23/21 18:37: APTT 58.3 H 07/24/21 00:25: APTT 55.2 H 07/24/21 05:48: WBC 5.9, RBC 4.17 L, Hgb 13.2, Hct 39.8 L, MCV 95.4 H, MCH 31.7, MCHC 33.2, RDW Std Deviation 49.1 H, RDW Coeff of Angelia 14.0, Plt Count 127 L, MPV 10.9, Immature Gran % (Auto) 0.200, Neut % (Auto) 48.5, Lymph % (Auto) 34.2, [place] % (Auto) 11.5 H, Eos % (Auto) 5.1 H, Baso % (Auto) 0.5, Absolute Neuts (auto) 2.9, Absolute Lymphs (auto) 2.03, Nucleated RBC % 0 07/24/21 05:48: Sodium 137, Potassium 3.8, Chloride 101, Carbon Dioxide 29.0, Anion Gap 7, BUN 15, Creatinine 0.74, Estim Creat Clear Calc 60.36, Est GFR (MDRD) Af Amer 129, Est GFR (MDRD) Non-Af 107, BUN/Creatinine Ratio 20.2 H, Glucose 99, Calcium 9.4, Triglycerides 100, Cholesterol 120, LDL Cholesterol 47, VLDL Cholesterol 20, HDL Cholesterol 53, TSH 1.92 07/24/21 05:48: APTT 48.7 H Micro: Microbiology 07/23/21 09:51 Nasal Secretion SARS-CoV-2 Antigen (Rapid) - Final Rhythm Strip Rhythm Strip: Sinus bradycardia Rate: 51 Ectopy: PAC(s) Cardiology Labs/Tests 07/23/21 18:37: APTT 58.3 H 07/24/21 00:25: APTT 55.2 H 07/24/21 05:48: WBC 5.9, RBC 4.17 L, Hgb 13.2, Hct 39.8 L, MCV 95.4 H, MCH 31.7, MCHC 33.2, Plt Count 127 L, MPV 10.9, Immature Gran % (Auto) 0.200, Neut % (Auto) 48.5, Lymph % (Auto) 34.2, [place] % (Auto) 11.5 H, Eos % (Auto) 5.1 H, Baso % (Auto) 0.5, Absolute Neuts (auto) 2.9, Nucleated RBC % 0 07/24/21 05:48: Sodium 137, Potassium 3.8, Chloride 101, Carbon Dioxide 29.0, Anion Gap 7, BUN 15, Creatinine 0.74, Est GFR (MDRD) Af Amer 129, Est GFR (MDRD) Non-Af 107, BUN/Creatinine Ratio 20.2 H, Glucose 99, Calcium 9.4, Triglycerides 100, Cholesterol 120, LDL Cholesterol 47, VLDL Cholesterol 20, HDL Cholesterol 53 07/24/21 05:48: APTT 48.7 H Rhythm: EKG: ECHO: Stress Test: Cardiac Cath: PCI: CT Surgery: Holter monitor: EPS: PPM: CXR: Chest CT Scan: Radiography Diagnostic Testing: Radiology Impression Echocardiogram 07/23/21 14:04 Interpretation Summary The estimated ejection fraction is 55 %. Unable to assess diastolic dysfunction. The left atrium is mildly enlarged. The right atrium is mildly enlarged. Trivial mitral valve insufficiency. Moderate diffuse aortic valve thickening. Mild aortic stenosis. Mild (1+) aortic valve insufficiency. Ordering Physician: Woody Montana Referring Physician: UMM WARD Performed By: Allyn Martinez RDCS Physical Exam Const alert and oriented x3 Orientation / Consciousness: awake HEENT normocephalic Eyes no scleral icterus Resp Auscultation: crackles bilateral base Cardio regular rate Extremity no pedal edema Skin no rashes or lesions noted Psych mental status grossly normal Assessment & Plan Assessment/Plan (1) Shortness of breath: PLAN: Patient's stress test was unremarkable. 2D echo showed preserved EF and mild aortic stenosis. Shortness of breath does not seem to have a clear cardiac etiology at this time. His angiogram from last time was reviewed and showed no significant or even borderline stenoses. Patient can be discharged from a cardiac standpoint with possible outpatient referral to pulmonary servi chel. He can follow-up with me as an outpatient. Charges/Coding Visit Charges Inpatient E&M: 17887 Subs Hosp L2
--- NOTE | 2021-07-24 13:34 | STRESSREP_ITS ---
Stress Test Report Date: 07/24/2021 Procedure: Pharmacologic stress nuclear imaging study Indications: Shortness of breath Consent: Per the patient Procedure: The patient underwent pharmacologic (Regadenoson) evaluation with a peak heart rate of 86 beats per minute (63%predicted maximal heart rate) and a peak blood pressure of 132/88 mmHg. The baseline ECG demonstrated sinus rhythm with PACs and PVCs. EKG during lexiscan infusion revealed no significant ischemic changes. EKG post infusion revealed no significant ischemic changes [There were no cardiac dysrhythmias pretest, during pharmacologic infusion, or recovery]. [There was no complaint of chest discomfort during pharmacologic infusion or recovery]. The examination was discontinued secondary to completion of protocol. Impression: 1. Lexiscan stress test test is negative for Lexiscan infusion induced EKG changes of ischemia. 2. Lexiscan stress test test is negative for Lexiscan infusion induced chest pain. 3. Results of the nuclear portion of the test is as below Myocardial perfusion imaging study: Technique: The patient was injected with 14.1 millicuries of technetium 99m Cardiolite and subsequently rest SPECT Cardiolite nuclear imaging was obtained in the horizontal long, vertical long, and short axis views. The patient underwent pharmacologic [Regadenoson 0.4mg] evaluation. Please see above for details. The patient was injected with 44.4 millicuries of technetium 99m Cardiolite and subsequently stress SPECT Cardiolite nuclear imaging was obtained in the horizontal long, vertical long, and short axis views. A gated Cardiolite study at peak stress was obtained. Interpretation: Rest and stress SPECT Cardiolite nuclear imaging status post realignment, normalization, and attenuation correction demonstrate overall normal myocardial radioisotope uptake. There is no evidence of significant ischemia or infarction. Gated images reveal no significant regional wall motion abnormalities. The reported LVEF is 65%. Impression: 1. There is no evidence of significant ischemia or infarction. 2. Estimated ejection fraction is 65%. This note was generated with [employer] software. It may contain incorrect words, spelling, and punctuation that were not noted in checking the note before signing.
--- NOTE | 2021-07-24 14:18 | PHA.DC.MR ---
Pharmacy Service has performed discharge medication reconciliation for this patient. The patient's discharge medication list was reviewed for discrepancies and discrepancies were resolved. Home Medications aspirin 81 mg PO DAILY@0800 12/06/16 albuterol sulfate 90 mcg/actuation aerosol inhaler 2 puff INHALATION Q4H PRN g 05/25/19 brimonidine 1 drp EACH EYE BID 06/02/19 travoprost 1 drp EACH EYE QHS 06/02/19 acetaminophen 650 mg PO Q6H PRN PRN tab 06/09/20 baclofen 10 mg tablet 10 mg PO TID PRN 07/24/20 multivitamin 1 cap PO DAILY 07/24/20 magnesium oxide 500 mg tablet 1,500 mg PO QHS tab 08/05/20 famotidine 20 mg tablet 20 mg PO DAILY #90 tab 08/06/20 ezetimibe 10 mg tablet 10 mg PO DAILY #90 tab 09/29/20 cetirizine 10 mg capsule 10 mg PO DAILY 11/19/20 cholecalciferol (vitamin D3) 50 mcg (2,000 unit) tablet 50 mcg PO DAILY 11/19/20 cyanocobalamin (vitamin B-12) 1,000 mcg capsule 1,000 mcg PO DAILY 11/19/20 finasteride 5 mg tablet 5 mg PO DAILY tab 11/19/20 ursodiol 250 mg tablet 500 mg PO BIDCM 11/19/20 Arthritis Compound TOPICAL PRN 02/03/21 methylcellulose (with sugar) oral powder 1 tbsp PO DAILY PRN 02/03/21 netarsudil 0.02 % eye drops 1 drp OPHTHALMIC (EYE) DAILY 02/03/21 nitroglycerin 0.4 mg sublingual tablet 0.4 mg SUBLINGUAL Q5-15M PRN #25 tab 02/24/21 clobetasol 0.05 % topical cream 1 applic TOPICAL DAILY PRN #60 g 05/14/21 atorvastatin 20 mg tablet 20 mg PO QHS #90 tab 07/21/21 ferrous sulfate 325 mg PO QODAY 07/23/21
--- NOTE | 2021-07-24 14:32 | NURSING ---
Read and reviewed SN documentation. Reviewed plan of care with SN
== END 2021-07-24 15:16 | disposition home or self-care (01) | DRG 282 ==
LOC: ED 11:23 → PCU 11:33
PROVIDERS: Specialist; Admitting Provider Internal Medicine; Emergency Provider Emergency Medicine; PCP Internal Medicine; Visit Provider Internal Medicine
DX: I21.A1 Myocardial infarction type 2 (principal); J45.909 Unspecified asthma, uncomplicated; I25.10 Atherosclerotic heart disease of native coronary artery without angina pectoris; N40.0 Benign prostatic hyperplasia without lower urinary tract symptoms; I10 Essential (primary) hypertension; E78.5 Hyperlipidemia, unspecified; D50.9 Iron deficiency anemia, unspecified; M06.9 Rheumatoid arthritis, unspecified; L40.9 Psoriasis, unspecified; D69.6 Thrombocytopenia, unspecified; M50.30 Other cervical disc degeneration, unspecified cervical region; I35.0 Nonrheumatic aortic (valve) stenosis; M19.90 Unspecified osteoarthritis, unspecified site; K74.3 Primary biliary cirrhosis; Z79.899 Other long term (current) drug therapy; Z79.82 Long term (current) use of aspirin
CPT/HCPCS: 36415; 71046; 78452; 80048; 80061; 83735; 84443; 84484; 85025; 85610; 85730; 87426; 93005; 93017; 93306; 99251; 99285; A9500; A4216; G0463; J1940; J2785

== ENCOUNTER → 2021-08-17 12:51 | Outpatient (CLI) | payer MEDICARE, SELFPAY ==
--- NOTE | 2021-08-17 16:47 | PFTCOMP_ITS ---
COMPLETE PULMONARY FUNCTION TEST INTERPRETATION Brief HPI: Patient is an 86 year old male, currently under the care of Dr. Montana, who presents to [facility] for complete pulmonary function tests secondary to diagnosis of dyspnea. Respiratory therapist reports good effort and reproducible results. Interpretation: Forced expiration spirometry shows a mild large airways obstructive ventilatory defect with an FEV1 of 70% predicted. There is a significant bronchodilator response in FVC by strict ATS criteria. Spirograms are of good quality and plateau slowly, indicating slowly emptying areas of the lungs. The respiratory flow volume loop shows decreased expiratory flow rates at all lung volumes consistent with airway obstruction. Lung volumes by body plethysmography show a decreased total lung capacity at 4.44 L, 66% predicted. All other lung volumes are reduced symmetrically. Diffusion capacity by carbon monoxide is normal at 75% predicted. The airway resistance is elevated. No previous pulmonary function tests were available for review. Impression: Partially reversible mild mixed ventilatory defect with relatively preserved diffusion capacity
== END ==
PROVIDERS: PCP Internal Medicine; Referring Provider Specialist; Visit Provider Specialist
DX: R06.02 Shortness of breath (principal)
CPT/HCPCS: 94060; 94726; 94729

== ENCOUNTER 2021-12-03 15:11 | Outpatient (CLI) | payer MEDICARE, SELFPAY ==
[2021-12-03 16:22] LABS: Absolute Lymphocyte Count 2.18 X10^3/uL (0.83-4.51); Absolute Neutrophil Count 5.7 X10^3/uL (2.0-7.7); Basophil# 0.04 X10^3/uL; Basophil% 0.4 % (0-1); Eosinophil# 0.08 X10^3/uL; Eosinophils% 0.9 % (0-5); Hematocrit 44.5 % (40-54); Hemoglobin 14.7 g/dL (13.0-16.5); Lymphocyte # 2.18 X10^3/ul (0.83-4.51); Lymphocyte % 24.2 % (19-41); Mean Corpuscular Hgb 31.8 pg (27.0-32.0); Mean Corpuscular Volume 96.3 fL (80-94); Monocyte% 11.1 % (0-10); NRBC Flagged by Analyzer 0 % (0-5); Neutrophil # 5.67 X10^3/uL (2.7-7.7); Platelet Count 168 K/mm3 (150-450); RBC Distribution Width CV 14.1 % (11.6-14.6); RBC Distribution Width SD 49.6 fl (35.1-43.9); Red Blood Count 4.62 M/mm3 (4.6-6.2)
[2021-12-03 17:05] LABS: Anion Gap 2 (5-15); BUN 21 mg/dL (7-18); BUN/Creat Ratio 21.2 RATIO (10-20); Calcium,Total 9.4 mg/dL (8.5-10.1); Chloride 104 mmol/L (98-107); Creatinine, Serum 0.99 mg/dL (0.70-1.30); EST Glomerular Filtration Rate 76 mL/min (>60); Est Glom Filt Rate - Afr Amer 92 mL/min (>60); Glucose 100 mg/dL (74-106); Magnesium 2.4 mg/dL (1.6-2.6); Potassium 4.6 mmol/L (3.5-5.1); Sodium Level 139 mmol/L (136-145)
== END 2021-12-03 23:59 | disposition home or self-care (01) ==
LOC: LAB 15:12
PROVIDERS: PCP Internal Medicine; Visit Provider Physician Assistant Medical
DX: I48.91 Unspecified atrial fibrillation (principal); E78.5 Hyperlipidemia, unspecified
CPT/HCPCS: 36415; 80048; 83735; 84443; 85025

== ENCOUNTER 2021-12-11 12:26 | Outpatient (CLI) | payer MEDICARE, SELFPAY | END 2021-12-11 23:59 | disposition home or self-care (01) | LOC: PSN 12:26 | PROVIDERS: PCP Internal Medicine; Referring Provider Physician Assistant Medical; Visit Provider Physician Assistant Medical | DX: I48.91 Unspecified atrial fibrillation (principal) | CPT/HCPCS: 93225; 93226 ==

== ENCOUNTER → 2022-08-04 | Outpatient (CLI) | payer MEDICARE, SELFPAY ==
[2022-08-04 16:27] LABS: Absolute Neutrophil Count 3.8 X10^3/uL (2.0-7.7); Basophil# 0.04 X10^3/uL; Basophil% 0.6 % (0-1); Eosinophil# 0.25 X10^3/uL; Eosinophils% 3.6 % (0-5); Hematocrit 40.9 % (40-54); Hemoglobin 12.8 g/dL (13.0-16.5); Lymphocyte % 30.3 % (19-41); Mean Corp Hgb Conc 31.3 g/dL (32-36); Mean Corpuscular Hgb 31.3 pg (27.0-32.0); Mean Platelet Vol. 11.4 fl (6.2-12.0); Monocyte# 0.74 X10^3/uL; Monocyte% 10.7 % (0-10); NRBC Flagged by Analyzer 0 % (0-5); Neutrophil # 3.79 X10^3/uL (2.7-7.7); Neutrophil % 54.5 % (47-70); Platelet Count 135 K/mm3 (150-450); RBC Distribution Width CV 14.2 % (11.6-14.6); RBC Distribution Width SD 52.4 fl (35.1-43.9); Red Blood Count 4.09 M/mm3 (4.6-6.2); White Blood Count 6.9 K/mm3 (4.4-11.0)
[2022-08-04 16:55] LABS: ALB/GLOB Ratio 0.7 RATIO (0.9-2.4); AST(SGOT) 33 U/L (15-37); Alanine Aminotransfer ALT/SGPT 25 U/L (16-61); Albumin, Serum 3.1 g/dL (3.2-5.0); Alkaline Phosphatase 73 U/L (45-117); Anion Gap 3 (5-15); BUN 14 mg/dL (7-18); BUN/Creat Ratio 18.2 RATIO (10-20); Calcium,Total 8.9 mg/dL (8.5-10.1); Chloride 104 mmol/L (98-107); Cholesterol 116 mg/dL (200); Creatinine, Serum 0.77 mg/dL (0.70-1.30); EST Glomerular Filtration Rate 102 mL/min (>60); Est Glom Filt Rate - Afr Amer 123 mL/min (>60); Globulin 4.3 g/dL (2.2-4.2); Glucose 89 mg/dL (74-106); High Density Lipoprotein 50 mg/dL; Potassium 4.5 mmol/L (3.5-5.1); Protein, Total 7.4 g/dL (6.4-8.2); Sodium Level 139 mmol/L (136-145); Triglycerides 106 mg/dL; Very Low Density Lipoprotein 21 mg/dL (5-40)
== END | disposition home or self-care (01) ==
PROVIDERS: PCP Internal Medicine; Visit Provider Internal Medicine
DX: I10 Essential (primary) hypertension (principal)
CPT/HCPCS: 36415; 80053; 80061; 85025

== ENCOUNTER 2022-08-24 06:04 | Emergency (ER) | payer MEDICARE, SELFPAY ==
[2022-08-24 06:05] VITALS: BP 153/79; PULSE 67; RESP 18; TEMP 36; O2SAT 98
[2022-08-24 06:09] VITALS: BP 153/79; PULSE 67; RESP 16; TEMP 36; O2SAT 98; BMI 32.8
--- NOTE | 2022-08-24 06:35 | EX.ED.DYSGE1 ---
HPI History of Present Illness Chief Complaint: GI Bleed Informant: patient and spouse/S.O. Narrative Narrative: Brought in by EMS from home for evaluation. Working at 2 AM he used the restroom he states he spit out noted quarter size clot. Denies any emesis. Denies coughing. Denies dyspnea. He is on aspirin history of coronary disease. He is also on Eliquis for history of paroxysmal atrial fibrillation. Denies any dental or tongue trauma. He has daily bowel movements with assistance of medications. Denies any black or tarry stools. Denies abdominal pain. Denies history of similar. Prior similar symptoms: No PFSH PFSH Medical History Anemia Aortic stenosis Asthma Atherosclerosis of coronary artery of [place] heart without angina pectoris BPH (benign prostatic hyperplasia) Cholelithiasis without obstruction Closed vertical fracture of left patella Degenerative disc disease, cervical Dermatitis Essential hypertension Fracture of triquetrum of left wrist Fracture of triquetrum of right wrist Glaucoma History of colon polyps History of pneumonia History of skin cancer Hyperlipidemia Hyponatremia Iron deficiency anemia Left facial swelling Liver disease Memory impairment Multiple fractures New onset atrial fibrillation Nonrheumatic aortic valve stenosis Orthostatic hypotension Osteoarthritis Primary biliary cirrhosis Psoriasis Rheumatoid arthritis Seasonal allergies Sinus bradycardia Thrombocytopenia Vitamin D deficiency Home Medications aspirin 81 mg tablet,delayed release 81 mg PO DAILY@0800 heart [facility] [place] 12/06/16 [History Last Taken 06/06/20] brimonidine 0.1 % eye drops 1 drp EACH EYE BID glaucoma 06/02/19 [History Last Taken 06/06/20] travoprost 0.004 % eye drops 1 drp EACH EYE QHS glaucoma 06/02/19 [History Last Taken 06/06/20] acetaminophen 325 mg tablet 650 mg PO Q6H PRN PRN Pain Score 1-10/Temp > 100.7 F 06/09/20 [Rx Last Taken Unknown] baclofen 10 mg tablet 10 mg PO TID PRN Pain 07/24/20 [History Last Taken Unknown] multivitamin 1 cap PO DAILY 07/24/20 [History Last Taken Unknown] magnesium oxide 500 mg tablet (Tobin) 1,500 mg PO QHS 08/05/20 [History Last Taken Unknown] cetirizine 10 mg capsule 10 mg PO DAILY allergy 11/19/20 [History Last Taken Unknown] cholecalciferol (vitamin D3) 50 mcg (2,000 unit) tablet 50 mcg PO DAILY 11/19/20 [History Last Taken Unknown] cyanocobalamin (vitamin B-12) 1,000 mcg capsule 1,000 mcg PO DAILY 11/19/20 [History Last Taken Unknown] finasteride 5 mg tablet 5 mg PO DAILY 11/19/20 [History Last Taken Unknown] methylcellulose (with sugar) oral powder (Citrucel (sucrose) oral powder) 1 tbsp PO DAILY PRN Constipation 02/03/21 [History Last Taken Unknown] netarsudil 0.02 % eye drops 1 drp ophthalmic (eye) DAILY glaucoma 02/03/21 [History Last Taken Unknown] clobetasol 0.05 % topical cream 1 applic topical DAILY PRN rash #60 grams 05/14/21 [Rx Last Taken Unknown] albuterol sulfate 90 mcg/actuation aerosol inhaler (Ventolin HFA) 2 puff inhalation Q4H PRN Asthma #8.5 grams 08/06/21 [Rx Last Taken Unknown] ezetimibe 10 mg tablet 10 mg PO DAILY heart health #90 tabs 09/22/21 [Rx Last Taken Unknown] Disability Placard #1 ea 12/01/21 [Rx Last Taken Unknown] apixaban 5 mg tablet (Eliquis) 5 mg PO BID #60 tabs 12/03/21 [Rx Last Taken Unknown] Arthritis Compound 1 click topical DAILY PRN Pain #60 CLICKS 02/08/22 [Rx Last Taken Unknown] ferrous sulfate 325 mg (65 mg iron) tablet 325 mg PO QODAY #90 tabs 06/28/22 [Rx Last Taken Unknown] atorvastatin 20 mg tablet 20 mg PO QHS cholesterol #90 tabs 07/19/22 [Rx Last Taken Unknown] nitroglycerin 0.4 mg sublingual tablet 0.4 mg sublingual Q5-15M PRN chest pain #25 tabs 07/28/22 [Rx Last Taken Unknown] budesonide-formoterol HFA 160 mcg-4.5 mcg/actuation aerosol inhaler (Symbicort) 2 puff inhalation DAILY 08/04/22 [History Last Taken Unknown] famotidine 20 mg tablet 20 mg PO DAILY #90 tabs 08/09/22 [Rx Last Taken Unknown] ursodiol 500 mg tablet 500 mg PO BIDCM liver disease #180 tabs 08/09/22 [Rx Last Taken Unknown] Allergy/AdvReac Type Severity Reaction Status Date / Time metoprolol [From Lopressor] Allergy Intermediate Shortness Verified 08/04/22 14:02 of breath Penicillins Allergy Rash Verified 08/04/22 14:02 Family History Father Hypertension Grandmother Hypertension Other Alcoholism Liver disease Surgical History History of appendectomy History of cataract extraction History of colon resection History of partial colectomy (~2003) Presence of stent in coronary artery Social History Smoking Status: Never smoker alcohol intake: current alcohol intake frequency: holidays/special occasions only substance use type: does not use caffeine: No what type of physical activity do you participate in: weight training ROS ROS ED Constitutional Constitutional ED: Denies chills, fever(s) or sweats Eyes Eyes: Denies change in vision ENT ENT ED: Reports other Details: Blood from mouth. ; Denies dysphagia or sore throat Cardiovascular Cardiovascular: Denies chest pain, leg edema, palpitations or racing heartbeat Respiratory/Chest Respiratory/Chest: Denies cough, dyspnea or dyspnea on exertion Gastrointestinal Gastrointestinal: Denies abdominal pain, diarrhea, nausea or vomiting Genitourinary Genitourinary ED: Denies dysuria, hematuria or urinary frequency Musculoskeletal Musculoskeletal: Denies back pain, extremity pain or neck pain Integumentary Denies rash or wounds Neurologic Neurologic: Denies headache(s), paresthesias or weakness EXAM Physical Exam Const Vital Signs: 08/24/22 06:09 08/24/22 06:05 08/24/22 08:12 Temperature 96.8 F L 96.8 F L Temperature Source Temporal Temporal Pulse Rate 67 67 56 L Respiratory Rate 16 18 16 Blood Pressure 153/79 H 153/79 H 154/70 H Blood Pressure Mean 103 103 Pulse Ox 98 98 97 Oxygen Delivery Method Room Air Room Air Positive well nourished and well developed General Appearance ED: well developed and NAD HEENT Reports moist mucous membranes HEENT Narrative: Examination noted blood clot along the gumline right lower. Clots were removed, noted slight bleeding from the gumline of the right lower molars. There is no tongue laceration. No trauma noted. normocephalic and atraumatic Eyes PERRL, EOMs intact bilaterally and conjunctivae normal General Eye ED: Yes normal appearance of both eyes Neck no lymphadenopathy and supple General: Negative for tenderness Chest Wall Chest: Negative for tenderness Resp normal respiratory effort and normal air movement Effort and Inspection: symmetric chest movement; Negative for respiratory distress Cardio regular rate, regular rhythm and no murmurs Peripheral Pulses: pulses 2+ throughout GI normal to inspection, nondistended, normoactive bowel sounds and non-tender Palpation: Negative for guarding or rebound tenderness present Back/Spine no CVA tenderness and no thoracic nor lumbar tenderness Extremity normal to inspection General Extremety ED: Negative for edema or tenderness General Extremity: Negative for edema Neuro oriented x3 and no sensory deficits noted Sensorium / Orientation: awake and alert Skin no rashes or lesions noted and no wounds MDM MDM MDM Narrative Medical decision making narrative: Patient noted to have right lower outer gingival bleeding. There is no ulcers or tears. Patient on baby aspirin and Eliquis. I did check labs platelets 115, he has had previously low platelets 112 in the past. Coagulation studies were normal. 0708: 3 cc topical TXA placed on the gauze placed topically on his gumline. He is monitored. 0725: TXA gauze removed, there is no current active bleeding. Will monitor. Patient no recurrent bleeding. Patient was due to see Dr. Cool for follow-up being transitioned from Dr. [place]. Last stent was in 2017. I discussed with Dr. Cool agrees can hold aspirin and Eliquis until the weekend before restarting. He will use a soft toothbrush avoiding the right lower area. Discussed return precautions. All questions were answered. Lab Data Labs: Laboratory Results - last 24 hr 08/24/22 08/24/22 08/24/22 06:50 06:50 06:50 WBC 6.0 RBC 4.00 L Hgb 12.5 L Hct 39.1 L MCV 97.8 H MCH 31.3 MCHC 32.0 RDW Std Deviation 51.5 H RDW Coeff of Angelia 14.2 Plt Count 115 L MPV 10.4 Immature Gran % (Auto) 0.200 Neut % (Auto) 54.8 Lymph % (Auto) 27.5 Collier % (Auto) 13.4 H Eos % (Auto) 3.8 Baso % (Auto) 0.3 Absolute Neuts (auto) 3.3 Absolute Lymphs (auto) 1.66 Nucleated RBC % 0 PT 14.0 INR 1.1 APTT 31.1 Sodium 140 Potassium 4.0 Chloride 107 Carbon Dioxide 31.0 Anion Gap 2 L BUN 15 Creatinine 0.70 Estim Creat Clear Calc 59.28 Est GFR (MDRD) Af Amer 137 Est GFR (MDRD) Non-Af 113 BUN/Creatinine Ratio 21.3 H Glucose 103 Calcium 9.2 Discharge Plan Triage Chief Complaint: GI Bleed ED Provider: Rolan Peña Dx/Rx/DC Orders Clinical Impression: Gingival bleeding, Thrombocytopenia, Paroxysmal A-fib, CAD (coronary artery disease) Instructions: Thrombocytopenia Prescriptions: No Action magnesium oxide [Tobin] 500 mg tablet 1,500 mg PO QHS baclofen 10 mg tablet 10 mg PO TID PRN (Reason: Pain) multivitamin capsule 1 cap PO DAILY Citrucel (sucrose) Powder 1 tbsp PO DAILY PRN (Reason: Constipation) finasteride 5 mg tablet 5 mg PO DAILY Label Comments: take 1 tablet by mouth once daily cyanocobalamin (vitamin B-12) 1,000 mcg capsule 1,000 mcg PO DAILY cholecalciferol (vitamin D3) 50 mcg (2,000 unit) tablet 50 mcg PO DAILY clobetasol 0.05 % cream 1 applic TOPICAL DAILY PRN (Reason: rash) Qty: 60 2RF Eliquis 5 mg tablet 5 mg PO BID Qty: 60 11RF budesonide-formoterol [Symbicort] 160-4.5 mcg/actuation HFA aerosol inhaler 2 puff inhalation DAILY Rx Instructions: administer with spacer, rinse mouth after each use aspirin 81 MG tablet 81 mg PO DAILY@0800 travoprost 1 DROP bottle 1 drp EACH EYE QHS brimonidine 5 ML drops 1 drp EACH EYE BID cetirizine 10 mg capsule 10 mg PO DAILY acetaminophen 325 MG tablet 650 mg PO Q6H PRN PRN (Reason: Pain Score 1-10/Temp > 100.7 F) 0RF netarsudil 0.02 % drops 1 drp ophthalmic (eye) DAILY albuterol sulfate [Ventolin HFA] 90 mcg/actuation HFA aerosol inhaler 2 puff INHALATION Q4H PRN (Reason: Asthma) Qty: 8.5 2RF ezetimibe 10 mg tablet 10 mg PO DAILY Qty: 90 3RF (DME) Disability Placard See Rx Instructions .Route .MEDSUPPLY Qty: 1 0RF Rx Instructions: Expires 12/01/2026 Arthritis Compound 1 click TOPICAL DAILY PRN (Reason: Pain) Qty: 60 1RF Rx Instructions: Diclofenac 3%, Lidocaine 3%, Baclofen 2% 1 click=o.25g 1 click topical daily 60 click tube ferrous sulfate 325 mg (65 mg iron) tablet 325 mg PO QODAY Qty: 90 2RF atorvastatin 20 mg tablet 20 mg PO QHS Qty: 90 3RF nitroglycerin 0.4 mg tablet, sublingual 0.4 mg SUBLINGUAL Q5-15M PRN (Reason: chest pain) Qty: 25 3RF ursodiol 500 mg tablet 500 mg PO BIDCM Qty: 180 3RF famotidine 20 mg tablet 20 mg PO DAILY Qty: 90 3RF Primary Care Provider: Addi Mario Referrals: Addi Mario MD [Primary Care Provider] - 3-5 Days Activity Restrictions/Additional Instructions: Right lower gingival bleeding controlled with TXA. Platelets 115. Discussed with cardiology may hold your baby aspirin and Eliquis. soft foods. Soft toothbrush avoid brushing the right lower teeth area at this time. Follow-up with your doctors. Return if any worsening symptoms. Disposition Disposition: Home, Self Care Discharge Date/Time: 08/24/22 08:14
[2022-08-24 07:00] LABS: Absolute Lymphocyte Count 1.66 X10^3/uL (0.83-4.51); Absolute Neutrophil Count 3.3 X10^3/uL (2.0-7.7); Basophil# 0.02 X10^3/uL; Basophil% 0.3 % (0-1); Eosinophil# 0.23 X10^3/uL; Eosinophils% 3.8 % (0-5); Hematocrit 39.1 % (40-54); Hemoglobin 12.5 g/dL (13.0-16.5); Lymphocyte # 1.66 X10^3/ul (0.83-4.51); Lymphocyte % 27.5 % (19-41); Mean Corpuscular Hgb 31.3 pg (27.0-32.0); Mean Corpuscular Volume 97.8 fL (80-94); Mean Platelet Vol. 10.4 fl (6.2-12.0); Monocyte# 0.81 X10^3/uL; Monocyte% 13.4 % (0-10); NRBC Flagged by Analyzer 0 % (0-5); Neutrophil % 54.8 % (47-70); Platelet Count 115 K/mm3 (150-450); RBC Distribution Width CV 14.2 % (11.6-14.6); RBC Distribution Width SD 51.5 fl (35.1-43.9)
[2022-08-24 07:07] LABS: International Normalized Ratio 1.1
[2022-08-24 07:08] LABS: Partial Thromboplast Time 31.1 Seconds (24.1-36.2)
[2022-08-24 07:09] LABS: Anion Gap 2 (5-15); BUN 15 mg/dL (7-18); BUN/Creat Ratio 21.3 RATIO (10-20); Calcium,Total 9.2 mg/dL (8.5-10.1); Chloride 107 mmol/L (98-107); EST Glomerular Filtration Rate 113 mL/min (>60); Est Glom Filt Rate - Afr Amer 137 mL/min (>60); Estimated Creatinine Clearance 59.28 ml/min; Glucose 103 mg/dL (74-106); Sodium Level 140 mmol/L (136-145)
[2022-08-24] MEDS: TRANEXAMIC ACID 1,000 MG/10 ML ML OPERA.SITE (07:10)
--- NOTE | 2022-08-24 07:31 | NURSING ---
dr mcdonald in and packing removed and still area that oozing a bit so repacked and will recheck again in a bit
[2022-08-24 08:12] VITALS: BP 154/70; PULSE 56; RESP 16; O2SAT 97
--- NOTE | 2022-08-24 08:13 | ED.RN ---
no further bleeding. dc instructions given. aware to hold blood thinners till sat and to return if bleeds again. no questions voiced.
== END 2022-08-24 08:14 | disposition home or self-care (01) ==
PROVIDERS: Emergency Provider Emergency Medicine; PCP Internal Medicine; Visit Provider Emergency Medicine
DX: K06.8 Other specified disorders of gingiva and edentulous alveolar ridge (principal); I48.0 Paroxysmal atrial fibrillation; D69.6 Thrombocytopenia, unspecified; I25.10 Atherosclerotic heart disease of native coronary artery without angina pectoris; E78.5 Hyperlipidemia, unspecified; I10 Essential (primary) hypertension; Z79.01 Long term (current) use of anticoagulants
CPT/HCPCS: 80048; 85025; 85610; 85730; 99284; A4216

== ENCOUNTER → 2022-09-04 | Outpatient (CLI) | payer MEDICARE, SELFPAY ==
[2022-09-04 12:42] LABS: Absolute Lymphocyte Count 1.91 X10^3/uL (0.83-4.51); Absolute Neutrophil Count 3.1 X10^3/uL (2.0-7.7); Basophil# 0.03 X10^3/uL; Basophil% 0.5 % (0-1); Eosinophils% 3.3 % (0-5); Hematocrit 40.7 % (40-54); Hemoglobin 12.5 g/dL (13.0-16.5); Lymphocyte # 1.91 X10^3/ul (0.83-4.51); Lymphocyte % 31.9 % (19-41); Mean Corp Hgb Conc 30.7 g/dL (32-36); Mean Corpuscular Hgb 30.6 pg (27.0-32.0); Mean Corpuscular Volume 99.8 fL (80-94); Mean Platelet Vol. 11.1 fl (6.2-12.0); Monocyte# 0.71 X10^3/uL; Monocyte% 11.9 % (0-10); NRBC Flagged by Analyzer 0 % (0-5); Neutrophil # 3.12 X10^3/uL (2.7-7.7); Neutrophil % 52.2 % (47-70); Platelet Count 146 K/mm3 (150-450); RBC Distribution Width CV 14.2 % (11.6-14.6); RBC Distribution Width SD 52.1 fl (35.1-43.9); Red Blood Count 4.08 M/mm3 (4.6-6.2)
== END | disposition home or self-care (01) ==
LOC: LAB 10:46
PROVIDERS: PCP Internal Medicine; Visit Provider Internal Medicine
DX: D64.9 Anemia, unspecified (principal)
CPT/HCPCS: 36415; 82746; 85025

== ENCOUNTER → 2022-09-08 | Outpatient (CLI) | payer MEDICARE, SELFPAY | END | disposition home or self-care (01) | LOC: LABSPEC 14:25 | PROVIDERS: PCP Internal Medicine; Referring Provider Internal Medicine; Visit Provider Internal Medicine | DX: D64.9 Anemia, unspecified (principal) | CPT/HCPCS: 82274 ==

== ENCOUNTER → 2022-10-14 | Outpatient (CLI) | payer MEDICARE, SELFPAY ==
--- NOTE | 2022-10-14 13:41 | ECHOD_ITS ---
Reason For Study: Murmur Procedure This was a 2D Doppler, Color Flow transthoracic echocardiogram. Exam performed in department. Left Ventricle Normal LV size. Left ventricular systolic function is normal. The estimated ejection fraction is 60 %. Stage 2 diastolic dysfunction. No regional wall motion abnormalities noted. Right Ventricle Normal RV size. Normal systolic function. Atria The left atrium is moderately enlarged. The right atrium is mildly enlarged. Mitral Valve Mild diffuse mitral valve thickening. Mild (1+) eccentric mitral valve insufficiency. Tricuspid Valve Normal tricuspid valve. Mild to moderate (1-2+) tricuspid valve insufficiency. Pulmonary artery systolic pressure is 37 mmHg. Aortic Valve Trisinus/trileaflet aortic valve. Moderate focal aortic valve calcification. Peak aortic valve gradient 34 mmHg. Mean aortic valve gradient 19 mmHg. Mild (1+) aortic valve insufficiency. Pulmonic Valve Normal pulmonic valve. Great Vessels Mildly dilated aortic root. Pericardium/Pleural No pericardial effusion. MMode/2D Measurements & Calculations LVIDd: 5.1 cm IVSd: 1.3 cm LVOT diam: 2.0 cm LVIDs: 3.2 cm LVPWd: 1.1 cm LVOT area: 3.3 cm2 RVDd: 3.9 cm FS: 37.5 % Ao root diam: 3.8 cm LAV(MOD-bp): 107.6 ml Aortic Valve Planimetry: 0.90 cm2 LA dimension: 4.6 cm LAV(MOD-bp) Indexed: 47.2 ml/m2 LAV(MOD-sp2): 102.4 ml LAV(MOD-sp4): 96.9 ml LA A4 area: 29.4 cm2 RA A4 area: 22.2 cm2 Time Measurements MV dec time: 0.29 sec Doppler Measurements & Calculations MV E max frantz: 81.4 cm/sec Lat Peak E' Frantz: 7.9 cm/sec Med Peak E' Frantz: 5.1 cm/sec MV A max frantz: 76.1 cm/sec E/E' lat: 10.3 E/E' med: 15.9 MV E/A: 1.1 MV V2 max: 91.9 cm/sec MV P1/2t max frantz: 91.1 cm/sec Ao V2 max: 291.9 cm/sec MV max P.4 mmHg MV P1/2t: 100.0 msec Ao max P.1 mmHg MV V2 mean: 54.9 cm/sec MV dec slope: 266.8 cm/sec2 Ao V2 mean: 203.5 cm/sec MV mean P.4 mmHg Ao mean P.9 mmHg MV V2 VTI: 32.8 cm MVA(P1/2t): 2.2 cm2 Ao V2 VTI: 70.6 cm MVA(VTI): 2.3 cm2 AV (velocity ratio): 0.33 SHRUTHI(I,D): 1.1 cm2 SHRUTHI(V,D): 0.93 cm2 AI max frantz: 384.9 cm/sec LV V1 max: 83.4 cm/sec MR max frantz: 571.3 cm/sec AI max P.3 mmHg LV V1 max P.8 mmHg MR max P.6 mmHg LV V1 mean P.7 mmHg AI dec slope: 167.1 cm/sec2 LV V1 mean: 61.3 cm/sec AI P1/2t: 674.7 msec LV V1 VTI: 23.4 cm SV(LVOT): 76.5 ml PA V2 max: 101.4 cm/sec TR max frantz: 303.5 cm/sec PA V2 mean: 67.6 cm/sec TR max P.9 mmHg ECHO/Echo Complete Interpretation Summary Normal LV size. Left ventricular systolic function is normal. The estimated ejection fraction is 60 %. Stage 2 diastolic dysfunction. Moderate focal aortic valve calcification. Mean aortic valve gradient 19 mmHg. Mild (1+) aortic valve insufficiency. Ordering Physician: John Cool Referring Physician: Addi Mario Performed By: Roberto Cadena RCS
== END | disposition home or self-care (01) ==
LOC: CVS 13:40
PROVIDERS: PCP Internal Medicine; Referring Provider Internal Medicine Cardiovascular Disease; Visit Provider Internal Medicine Cardiovascular Disease
DX: I95.1 Orthostatic hypotension (principal); R01.1 Cardiac murmur, unspecified
CPT/HCPCS: 93306

== ENCOUNTER 2023-01-22 10:04 | Emergency (ER) | payer MEDICARE, SELFPAY ==
[2023-01-22 10:04] VITALS: BP 141/66; PULSE 57; RESP 18; TEMP 36.4; O2SAT 97; BMI 31.6
--- NOTE | 2023-01-22 10:19 | EDS_ITS ---
HPI History of Present Illness Chief Complaint: Upper Extremity Injury Detail of Chief Complaint: Right wrist pain Informant: patient Onset/Context/Timing Onset: Yesterday Current Severity: Mild Maximum Severity: Moderate Narrative Narrative: Patient presents secondary to right wrist pain. He states yesterday he was lifting the ice been out of his freezer to sit on the counter. He had sudden sharp pain along the ulnar aspect of his right wrist. There was no fall or direct trauma. Patient does have history of a right triquetral fracture that did not require surgery. This fracture was approximately 3 years ago. He is left-hand dominant. No paresthesias. [facility] Medical History Advanced directives, counseling/discussion Anemia Anginal equivalent Aortic stenosis Asthma Atherosclerosis of coronary artery of [place] heart without angina pectoris BPH (benign prostatic hyperplasia) Bradycardia Cholelithiasis without obstruction Closed vertical fracture of left patella Degenerative disc disease, cervical Dermatitis Dizziness Essential hypertension Fall Fracture of triquetrum of left wrist Fracture of triquetrum of right wrist Glaucoma History of colon polyps History of pneumonia History of skin cancer Hyperlipidemia Hyponatremia Iron deficiency anemia Left facial swelling Liver disease Memory impairment Multiple fractures New onset atrial fibrillation Nonrheumatic aortic valve stenosis Obesity Orthostatic hypotension Osteoarthritis Physical debility Primary biliary cirrhosis Psoriasis Restrictive airway disease Rheumatoid arthritis Right foot pain Seasonal allergies Sinus bradycardia Thrombocytopenia Vitamin D deficiency Home Medications aspirin 81 mg tablet,delayed release 81 mg PO DAILY@0800 heart [facility] 12/06/16 [History Last Taken 06/06/20] travoprost 0.004 % eye drops 1 drp EACH EYE QHS glaucoma 06/02/19 [History Last Taken 06/06/20] acetaminophen 325 mg tablet 650 mg PO Q6H PRN PRN Pain Score 1-10/Temp > 100.7 F 06/09/20 [Rx Last Taken Unknown] multivitamin 1 cap PO DAILY 07/24/20 [History Last Taken Unknown] magnesium oxide 500 mg tablet (Tobin) 1,500 mg PO QHS 08/05/20 [History Last Taken Unknown] cholecalciferol (vitamin D3) 50 mcg (2,000 unit) tablet 50 mcg PO DAILY 11/19/20 [History Last Taken Unknown] cyanocobalamin (vitamin B-12) 1,000 mcg capsule 1,000 mcg PO DAILY 11/19/20 [History Last Taken Unknown] finasteride 5 mg tablet 5 mg PO DAILY 11/19/20 [History Last Taken Unknown] methylcellulose (with sugar) oral powder (Citrucel (sucrose) oral powder) 1 tbsp PO DAILY PRN Constipation 02/03/21 [History Last Taken Unknown] netarsudil 0.02 % eye drops 1 drp ophthalmic (eye) DAILY glaucoma 02/03/21 [History Last Taken Unknown] clobetasol 0.05 % topical cream 1 applic topical DAILY PRN rash #60 grams 05/14/21 [Rx Last Taken Unknown] albuterol sulfate 90 mcg/actuation aerosol inhaler (Ventolin HFA) 2 puff inhalation Q4H PRN Asthma #8.5 grams 08/06/21 [Rx Last Taken Unknown] Disability Placard #1 ea 12/01/21 [Rx Last Taken Unknown] Arthritis Compound 1 click topical DAILY PRN Pain #60 CLICKS 02/08/22 [Rx Last Taken Unknown] ferrous sulfate 325 mg (65 mg iron) tablet 325 mg PO QODAY #90 tabs 06/28/22 [Rx Last Taken Unknown] atorvastatin 20 mg tablet 20 mg PO QHS cholesterol #90 tabs 07/19/22 [Rx Last Taken Unknown] nitroglycerin 0.4 mg sublingual tablet 0.4 mg sublingual Q5-15M PRN chest pain #25 tabs 07/28/22 [Rx Last Taken Unknown] budesonide-formoterol HFA 160 mcg-4.5 mcg/actuation aerosol inhaler (Symbicort) 2 puff inhalation DAILY 08/04/22 [History Last Taken Unknown] famotidine 20 mg tablet 20 mg PO DAILY #90 tabs 08/09/22 [Rx Last Taken Unknown] ursodiol 500 mg tablet 500 mg PO BIDCM liver disease #180 tabs 08/09/22 [Rx Last Taken Unknown] ezetimibe 10 mg tablet 10 mg PO DAILY heart health #90 tabs 09/15/22 [Rx Last Taken Unknown] cetirizine 10 mg capsule 10 mg PO DAILY PRN allergy 10/05/22 [History Last Taken Unknown] apixaban 5 mg tablet (Eliquis) 5 mg PO BID #60 tabs 12/08/22 [Rx Last Taken Unknown] dorzolamide 2 % eye drops 1 drp ophthalmic (eye) 12/29/22 [History Last Taken Unknown] erythromycin 5 mg/gram (0.5 %) eye ointment gm ophthalmic (eye) 12/29/22 [History Last Taken Unknown] rocklan EACH EYE 12/29/22 [History Last Taken Unknown] Allergy/AdvReac Type Severity Reaction Status Date / Time metoprolol [From Lopressor] Allergy Intermediate Shortness Verified 01/22/23 10:06 of breath Penicillins Allergy Rash Verified 01/22/23 10:06 Family History Father Hypertension Grandmother Hypertension Other Alcoholism Liver disease Surgical History History of appendectomy History of cataract extraction History of colon resection History of partial colectomy (~2003) Presence of stent in coronary artery Social History Smoking Status: Never smoker alcohol intake: current alcohol intake frequency: holidays/special occasions only substance use type: does not use caffeine: No what type of physical activity do you participate in: weight training ROS ROS ED Constitutional Constitutional ED: Denies chills or fever(s) Eyes Eyes: Denies change in vision ENT ENT ED: Denies rhinorrhea or sore throat Cardiovascular Cardiovascular: Denies chest pain Respiratory/Chest Respiratory/Chest: Denies cough or dyspnea Gastrointestinal Gastrointestinal: Denies abdominal pain, nausea or vomiting Musculoskeletal Musculoskeletal: Reports extremity pain; Denies back pain Integumentary Denies Abrasions or rash Neurologic Neurologic: Denies headache(s), paresthesias or weakness Psychiatric Psychiatric: Denies anxiety or depression Allergic/Immunologic Allergic/Immunologic ED: Denies lip swelling or urticaria EXAM Physical Exam Const Vital Signs: 01/22/23 10:04 Temperature 97.6 F L Temperature Source Temporal Pulse Rate 57 L Respiratory Rate 18 Blood Pressure 141/66 H Blood Pressure Mean 91 Pulse Ox 97 Oxygen Delivery Method Room Air Positive well nourished and well developed General Appearance ED: well developed HEENT Reports normocephalic and head/scalp atraumatic Eyes PERRL and EOMs intact bilaterally Neck supple Chest Wall inspection of chest normal and palpation of chest normal Resp normal respiratory effort and clear to auscultation bilaterally Cardio regular rate and regular rhythm GI Palpation: soft Back/Spine no CVA tenderness Extremity Extremity Narrative: Mild edema and tenderness noted along the ulnar aspect of the right wrist. Good cap refill distally with normal sensation and tight hand grasp. No pain at the elbow. Neuro oriented x3 and no sensory deficits noted Sensorium / Orientation: alert Motor Exam: strength 5/5 throughout Psych mental status grossly normal Skin no rashes or lesions noted MDM MDM MDM Narrative Medical decision making narrative: Right wrist x-rays obtained to evaluate for fracture. Treatment and Re-Evaluation Narrative: Right wrist x-rays from interpretation reveal no evidence of fracture. Patient be placed in a cock up wrist splint. He will follow-up orthopedics if not improving. Return instructions given. Discharge Plan Triage Chief Complaint: Upper Extremity Injury ED Provider: Julia Bishop Dx/Rx/DC Orders Clinical Impression: Right wrist sprain Instructions: ED Wrist Sprain Prescriptions: No Action magnesium oxide [Tobin] 500 mg tablet 1,500 mg PO QHS multivitamin capsule 1 cap PO DAILY Citrucel (sucrose) Powder 1 tbsp PO DAILY PRN (Reason: Constipation) finasteride 5 mg tablet 5 mg PO DAILY Label Comments: take 1 tablet by mouth once daily cyanocobalamin (vitamin B-12) 1,000 mcg capsule 1,000 mcg PO DAILY cholecalciferol (vitamin D3) 50 mcg (2,000 unit) tablet 50 mcg PO DAILY clobetasol 0.05 % cream 1 applic TOPICAL DAILY PRN (Reason: rash) Qty: 60 2RF budesonide-formoterol [Symbicort] 160-4.5 mcg/actuation HFA aerosol inhaler 2 puff inhalation DAILY Rx Instructions: administer with spacer, rinse mouth after each use dorzolamide 2 % drops 1 drp ophthalmic (eye) Label Comments: instill 1 drop into both eyes twice a day rocklan EACH EYE erythromycin 5 mg/gram (0.5 %) ointment ophthalmic (eye) aspirin 81 MG tablet 81 mg PO DAILY@0800 travoprost 1 DROP bottle 1 drp EACH EYE QHS cetirizine 10 mg capsule 10 mg PO DAILY PRN (Reason: allergy) acetaminophen 325 MG tablet 650 mg PO Q6H PRN PRN (Reason: Pain Score 1-10/Temp > 100.7 F) 0RF netarsudil 0.02 % drops 1 drp ophthalmic (eye) DAILY albuterol sulfate [Ventolin HFA] 90 mcg/actuation HFA aerosol inhaler 2 puff INHALATION Q4H PRN (Reason: Asthma) Qty: 8.5 2RF (DME) Disability Placard See Rx Instructions .Route .MEDSUPPLY Qty: 1 0RF Rx Instructions: Expires 12/01/2026 Arthritis Compound 1 click TOPICAL DAILY PRN (Reason: Pain) Qty: 60 1RF Rx Instructions: Diclofenac 3%, Lidocaine 3%, Baclofen 2% 1 click=o.25g 1 click topical daily 60 click tube ferrous sulfate 325 mg (65 mg iron) tablet 325 mg PO QODAY Qty: 90 2RF atorvastatin 20 mg tablet 20 mg PO QHS Qty: 90 3RF nitroglycerin 0.4 mg tablet, sublingual 0.4 mg SUBLINGUAL Q5-15M PRN (Reason: chest pain) Qty: 25 3RF ursodiol 500 mg tablet 500 mg PO BIDCM Qty: 180 3RF famotidine 20 mg tablet 20 mg PO DAILY Qty: 90 3RF ezetimibe 10 mg tablet 10 mg PO DAILY Qty: 90 3RF Eliquis 5 mg tablet 5 mg PO BID Qty: 60 11RF Primary Care Provider: Addi Mario Referrals: Addi Mario MD [Primary Care Provider] - Jeff Carrero DO [Med Staff - Active Staff] - 1 Week if not improving Disposition Disposition: Home, Self Care
--- NOTE | 2023-01-22 10:19 | RAD_ITS ---
INDICATION: injury EXAMINATION/TECHNIQUE: X-RAY - RIGHT XR Wrist Min 3 Views 3 VIEWS COMPARISON: July 14, 2020 FINDINGS: SOFT TISSUES: No soft tissue swelling or gas. No radiopaque foreign body. BONES/JOINTS: The bones are diffusely demineralized. No acute fracture or subluxation.. Normal alignment. There are degenerative changes of the radiocarpal and first CMC joint. No sclerotic or destructive changes observed. RAD/Wrist min 3 Views IMPRESSION: Degenerative changes. Electronically Signed: Magdalena Borden MD at 10:41 EDT ,
== END 2023-01-22 10:50 | disposition home or self-care (01) ==
PROVIDERS: Emergency Provider Emergency Medicine; PCP Internal Medicine; Visit Provider Emergency Medicine
DX: S63.91XA Sprain of unspecified part of right wrist and hand, initial encounter (principal); I25.10 Atherosclerotic heart disease of native coronary artery without angina pectoris; Z95.5 Presence of coronary angioplasty implant and graft; X58.XXXA Exposure to other specified factors, initial encounter
CPT/HCPCS: 73110; 99283

== ENCOUNTER 2023-03-12 12:17 | Emergency (ER) | payer MEDICARE, SELFPAY ==
[2023-03-12 12:20] VITALS: BP 169/67; PULSE 56; RESP 19; TEMP 36; O2SAT 98; BMI 31.9
--- NOTE | 2023-03-12 12:33 | EKG12_ITS ---
Test Reason : PALP Blood Pressure : / mmHG Vent. Rate : 054 BPM Atrial Rate : 000 BPM P-R Int : 000 ms QRS Dur : 074 ms QT Int : 456 ms P-R-T Axes : 000 -23 043 degrees QTc Int : 432 ms Normal sinus rhythm Abnormal ECG Confirmed by NATALIA FREDERICK, JOE ([id number]), purchasing expeditor AN KWON ([id number]) on 03/14/2023 12:59:03 PM Referred By: BB Confirmed By:JOE FISHER MD
[2023-03-12 12:47] LABS: Absolute Lymphocyte Count 2.23 X10^3/uL (0.83-4.51); Absolute Neutrophil Count 3.6 X10^3/uL (2.0-7.7); Basophil# 0.04 X10^3/uL; Basophil% 0.6 % (0-1); Eosinophil# 0.22 X10^3/uL; Eosinophils% 3.2 % (0-5); Hematocrit 37.6 % (40-54); Hemoglobin 11.9 g/dL (13.0-16.5); Lymphocyte # 2.23 X10^3/ul (0.83-4.51); Lymphocyte % 32.4 % (19-41); Mean Corp Hgb Conc 31.6 g/dL (32-36); Mean Corpuscular Hgb 30.8 pg (27.0-32.0); Mean Corpuscular Volume 97.4 fL (80-94); Monocyte% 11.6 % (0-10); NRBC Flagged by Analyzer 0 % (0-5); Neutrophil # 3.58 X10^3/uL (2.7-7.7); Neutrophil % 51.9 % (47-70); Platelet Count 141 K/mm3 (150-450); RBC Distribution Width CV 15.1 % (11.6-14.6); RBC Distribution Width SD 54.1 fl (35.1-43.9); Red Blood Count 3.86 M/mm3 (4.6-6.2); White Blood Count 6.9 K/mm3 (4.4-11.0)
[2023-03-12 13:04] LABS: Anion Gap 3 (5-15); BUN 15 mg/dL (7-18); BUN/Creat Ratio 21.5 RATIO (10-20); Calcium,Total 9.6 mg/dL (8.5-10.1); Chloride 104 mmol/L (98-107); EST Glomerular Filtration Rate 114 mL/min (>60); Est Glom Filt Rate - Afr Amer 138 mL/min (>60); Glucose 88 mg/dL (74-106); Potassium 4.1 mmol/L (3.5-5.1); Sodium Level 137 mmol/L (136-145); Troponin-I HS 451 pg/mL (3.0-78.0)
[2023-03-12 13:14] VITALS: BP 125/65; PULSE 52; RESP 18; O2SAT 97
--- NOTE | 2023-03-12 13:27 | EDS_ITS ---
HPI History of Present Illness Chief Complaint: Palpitations Informant: patient Narrative Narrative: Patient states he has a history of paroxysmal atrial fibrillation as well as hypertension, he is on Eliquis. He has been feeling fine lately and today he felt a little nauseated and his Apple Watch told him he was in atrial fibrillation, so he comes right to the emergency department. He denies any chest discomfort, dyspnea, lightheadedness, palpitations. At this time he is asymptomatic. [facility] Medical History Advanced directives, counseling/discussion Anemia Anginal equivalent Aortic stenosis Asthma Atherosclerosis of coronary artery of [place] heart without angina pectoris BPH (benign prostatic hyperplasia) Bradycardia Cholelithiasis without obstruction Closed vertical fracture of left patella Degenerative disc disease, cervical Dermatitis Dizziness Essential hypertension Extensor tenosynovitis of right wrist Fall Fracture of triquetrum of left wrist Fracture of triquetrum of right wrist Glaucoma History of colon polyps History of pneumonia History of skin cancer Hyperlipidemia Hyponatremia Iron deficiency anemia Left facial swelling Liver disease Memory impairment Multiple fractures New onset atrial fibrillation Nonrheumatic aortic valve stenosis Obesity Orthostatic hypotension Osteoarthritis Physical debility Primary biliary cirrhosis Psoriasis Restrictive airway disease Rheumatoid arthritis Right foot pain Seasonal allergies Sinus bradycardia Thrombocytopenia Vitamin D deficiency Home Medications aspirin 81 mg tablet,delayed release 81 mg PO DAILY@0800 heart health 12/06/16 [History Last Taken 06/06/20] travoprost 0.004 % eye drops 1 drp EACH EYE QHS glaucoma 06/02/19 [History Last Taken 06/06/20] acetaminophen 325 mg tablet 650 mg PO Q6H PRN PRN Pain Score 1-10/Temp > 100.7 F 06/09/20 [Rx Last Taken Unknown] multivitamin 1 cap PO DAILY 07/24/20 [History Last Taken Unknown] magnesium oxide 500 mg tablet (Tobin) 1,500 mg PO QHS 08/05/20 [History Last Taken Unknown] cholecalciferol (vitamin D3) 50 mcg (2,000 unit) tablet 50 mcg PO DAILY 11/19/20 [History Last Taken Unknown] cyanocobalamin (vitamin B-12) 1,000 mcg capsule 1,000 mcg PO DAILY 11/19/20 [History Last Taken Unknown] finasteride 5 mg tablet 5 mg PO DAILY 11/19/20 [History Last Taken Unknown] methylcellulose (with sugar) oral powder (Citrucel (sucrose) oral powder) 1 tbsp PO DAILY PRN Constipation 02/03/21 [History Last Taken Unknown] netarsudil 0.02 % eye drops 1 drp ophthalmic (eye) DAILY glaucoma 02/03/21 [History Last Taken Unknown] clobetasol 0.05 % topical cream 1 applic topical DAILY PRN rash #60 grams 05/14/21 [Rx Last Taken Unknown] albuterol sulfate 90 mcg/actuation aerosol inhaler (Ventolin HFA) 2 puff inhalation Q4H PRN Asthma #8.5 grams 08/06/21 [Rx Last Taken Unknown] Disability Placard #1 ea 12/01/21 [Rx Last Taken Unknown] Arthritis Compound 1 click topical DAILY PRN Pain #60 CLICKS 02/08/22 [Rx Last Taken Unknown] ferrous sulfate 325 mg (65 mg iron) tablet 325 mg PO QODAY #90 tabs 06/28/22 [Rx Last Taken Unknown] atorvastatin 20 mg tablet 20 mg PO QHS cholesterol #90 tabs 07/19/22 [Rx Last Taken Unknown] nitroglycerin 0.4 mg sublingual tablet 0.4 mg sublingual Q5-15M PRN chest pain #25 tabs 07/28/22 [Rx Last Taken Unknown] budesonide-formoterol HFA 160 mcg-4.5 mcg/actuation aerosol inhaler (Symbicort) 2 puff inhalation DAILY 08/04/22 [History Last Taken Unknown] famotidine 20 mg tablet 20 mg PO DAILY #90 tabs 08/09/22 [Rx Last Taken Unknown] ursodiol 500 mg tablet 500 mg PO BIDCM liver disease #180 tabs 08/09/22 [Rx Last Taken Unknown] ezetimibe 10 mg tablet 10 mg PO DAILY heart health #90 tabs 09/15/22 [Rx Last Taken Unknown] cetirizine 10 mg capsule 10 mg PO DAILY PRN allergy 10/05/22 [History Last Taken Unknown] apixaban 5 mg tablet (Eliquis) 5 mg PO BID #60 tabs 12/08/22 [Rx Last Taken Unknown] dorzolamide 2 % eye drops 1 drp ophthalmic (eye) 12/29/22 [History Last Taken Unknown] erythromycin 5 mg/gram (0.5 %) eye ointment gm ophthalmic (eye) 12/29/22 [History Last Taken Unknown] rocklan EACH EYE 12/29/22 [History Last Taken Unknown] prednisone 5 mg tablets in a dose pack 5 mg PO DIRECTED right wrist extensor tenosyno #21 tabs 01/24/23 [Rx Last Taken Unknown] Allergy/AdvReac Type Severity Reaction Status Date / Time metoprolol [From Lopressor] Allergy Intermediate Shortness Verified 03/12/23 12:23 of breath Penicillins Allergy Rash Verified 03/12/23 12:23 Family History Father Hypertension Grandmother Hypertension Other Alcoholism Liver disease Surgical History History of appendectomy History of cataract extraction History of colon resection History of partial colectomy (~2003) Presence of stent in coronary artery Social History Smoking Status: Never smoker alcohol intake: current alcohol intake frequency: holidays/special occasions only substance use type: does not use caffeine: No what type of physical activity do you participate in: weight training ROS ROS ED Constitutional Constitutional ED: Denies chills or fever(s) Eyes Eyes: Denies change in vision or diplopia ENT ENT ED: Denies rhinorrhea or sore throat Cardiovascular Cardiovascular: Denies chest pain or palpitations Respiratory/Chest Respiratory/Chest: Denies cough or dyspnea Gastrointestinal Gastrointestinal: Reports nausea; Denies abdominal pain, diarrhea or vomiting Genitourinary Genitourinary ED: Denies dysuria or hematuria Musculoskeletal Musculoskeletal: Denies back pain or neck pain Integumentary Denies abscess or rash Neurologic Neurologic: Denies headache(s), paresthesias or weakness Psychiatric Psychiatric: Denies anxiety or suicidal thoughts EXAM Physical Exam Const Vital Signs: 03/12/23 12:20 03/12/23 12:24 03/12/23 13:14 Temperature 96.8 F L Temperature Source Temporal Pulse Rate 56 L 52 L Respiratory Rate 19 H 18 Respiratory Effort Normal Non-Labored Respiratory Pattern Normal Blood Pressure 169/67 H 125/65 H Blood Pressure Mean 101 85 Pulse Ox 98 97 Oxygen Delivery Method Room Air Room Air 03/12/23 13:57 Temperature Temperature Source Pulse Rate 44 L Respiratory Rate 23 H Respiratory Effort Respiratory Pattern Blood Pressure 121/66 H Blood Pressure Mean 84 Pulse Ox 98 Oxygen Delivery Method Room Air Positive well nourished and well developed General Appearance ED: well developed and NAD HEENT Reports moist mucous membranes normocephalic and atraumatic Eyes PERRL and EOMs intact bilaterally Neck full ROM, supple and no JVD Chest Wall inspection of chest normal and palpation of chest normal Resp normal respiratory effort and clear to auscultation bilaterally Cardio regular rate and regular rhythm Rate: Negative for tachycardic Heart Sounds: murmur systolic II/ crescendo-decrescendo left sternal border GI non-tender and non-distended Auscultation: normoactive bowel sounds Palpation: soft Back/Spine no CVA tenderness General Back: other FROM Extremity normal to inspection General Extremety ED: Negative for edema, pulses abnormal or tenderness General Extremity: Negative for edema or pulses abnormal Neuro oriented x3, CN's II-XII intact bilaterally and no sensory deficits noted Sensorium / Orientation: awake and alert Motor Exam: strength 5/5 throughout Skin no rashes or lesions noted and no wounds MDM MDM MDM Narrative Medical decision making narrative: I reviewed some old records, it seemed that he had an episode of atrial fibrillation that was verified and then after that he had a Holter monitor without any episodes of A-fib, and it does not sound like he is in atrial fibrillation very often. He did not have any chest discomfort or dyspnea, however he is 88 years old and so I sent for a troponin, which is elevated however it seems that he has had old troponin levels that are always abnormal. I am at a very low suspicion after looking at his EKG for acute coronary syndrome; it looks normal with a sinus rhythm. He is asymptomatic. We will repeat troponin in a couple hours. The rest of his tests are unremarkable. Repeat troponin came back at 407, down from 451. This is consistent with the lack of an acute coronary event. The rest of his troponins have been similarly elevated in the past when they were measured. He had a couple of episodes of relative bradycardia in the 40s with which he is asymptomatic. Looking at his list of medications he is on nothing for his blood pressure and no AV [place] blockers. The cardiology clinic notes did not say anything about him being bradycardic, just that his hypertension was not severe. 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 History & Record Review Additional record(s) reviewed:: Prior outpatient record and Prior labs Lab Data Attestation: I reviewed the patient's lab results. Labs: Laboratory Results - last 24 hr 03/12/23 03/12/23 03/12/23 12:04 12:04 14:04 WBC 6.9 RBC 3.86 L Hgb 11.9 L Hct 37.6 L MCV 97.4 H MCH 30.8 MCHC 31.6 L RDW Std Deviation 54.1 H RDW Coeff of Angelia 15.1 H Plt Count 141 L MPV 11.0 Immature Gran % (Auto) 0.300 Neut % (Auto) 51.9 Lymph % (Auto) 32.4 [place] % (Auto) 11.6 H Eos % (Auto) 3.2 Baso % (Auto) 0.6 Absolute Neuts (auto) 3.6 Absolute Lymphs (auto) 2.23 Nucleated RBC % 0 Sodium 137 Potassium 4.1 Chloride 104 Carbon Dioxide 30.0 Anion Gap 3 L BUN 15 Creatinine 0.70 Estim Creat Clear Calc 58.20 Est GFR (MDRD) Af Amer 138 Est GFR (MDRD) Non-Af 114 BUN/Creatinine Ratio 21.5 H Glucose 88 Calcium 9.6 Troponin I High Sens 451 H* 407 H* Rhythm Strip Rhythm Strip: Sinus Rhythm Rate: 55 Ectopy: None EKG Initial EKG: Attestation: I personally reviewed and interpreted this EKG as follows: Interpretation: Sinus Rhythm and No Acute Injury Pattern Prior EKG tracings: available for review Prior: Unchanged Discharge Plan Triage Chief Complaint: Palpitations ED Provider: Javier Ferrera Dx/Rx/DC Orders Clinical Impression: Paroxysmal atrial fibrillation Instructions: AFib Dc Prescriptions: No Action magnesium oxide [Tobin] 500 mg tablet 1,500 mg PO QHS multivitamin capsule 1 cap PO DAILY Citrucel (sucrose) Powder 1 tbsp PO DAILY PRN (Reason: Constipation) finasteride 5 mg tablet 5 mg PO DAILY Label Comments: take 1 tablet by mouth once daily cyanocobalamin (vitamin B-12) 1,000 mcg capsule 1,000 mcg PO DAILY cholecalciferol (vitamin D3) 50 mcg (2,000 unit) tablet 50 mcg PO DAILY clobetasol 0.05 % cream 1 applic TOPICAL DAILY PRN (Reason: rash) Qty: 60 2RF budesonide-formoterol [Symbicort] 160-4.5 mcg/actuation HFA aerosol inhaler 2 puff inhalation DAILY Rx Instructions: administer with spacer, rinse mouth after each use dorzolamide 2 % drops 1 drp ophthalmic (eye) Label Comments: instill 1 drop into both eyes twice a day rocklan EACH EYE erythromycin 5 mg/gram (0.5 %) ointment ophthalmic (eye) prednisone 5 mg tablets,dose pack 5 mg PO DIRECTED MDD per dose instructions Qty: 21 0RF Rx Instructions: see taper instructions aspirin 81 MG tablet 81 mg PO DAILY@0800 travoprost 1 DROP bottle 1 drp EACH EYE QHS cetirizine 10 mg capsule 10 mg PO DAILY PRN (Reason: allergy) acetaminophen 325 MG tablet 650 mg PO Q6H PRN PRN (Reason: Pain Score 1-10/Temp > 100.7 F) 0RF netarsudil 0.02 % drops 1 drp ophthalmic (eye) DAILY albuterol sulfate [Ventolin HFA] 90 mcg/actuation HFA aerosol inhaler 2 puff INHALATION Q4H PRN (Reason: Asthma) Qty: 8.5 2RF (DME) Disability Placard See Rx Instructions .Route .MEDSUPPLY Qty: 1 0RF Rx Instructions: Expires 12/01/2026 Arthritis Compound 1 click TOPICAL DAILY PRN (Reason: Pain) Qty: 60 1RF Rx Instructions: Diclofenac 3%, Lidocaine 3%, Baclofen 2% 1 click=o.25g 1 click topical daily 60 click tube ferrous sulfate 325 mg (65 mg iron) tablet 325 mg PO QODAY Qty: 90 2RF atorvastatin 20 mg tablet 20 mg PO QHS Qty: 90 3RF nitroglycerin 0.4 mg tablet, sublingual 0.4 mg SUBLINGUAL Q5-15M PRN (Reason: chest pain) Qty: 25 3RF ursodiol 500 mg tablet 500 mg PO BIDCM Qty: 180 3RF famotidine 20 mg tablet 20 mg PO DAILY Qty: 90 3RF ezetimibe 10 mg tablet 10 mg PO DAILY Qty: 90 3RF Eliquis 5 mg tablet 5 mg PO BID Qty: 60 11RF Primary Care Provider: Addi Mario Referrals: John Cool MD [Med Staff - Active Staff] - 5-7 Days Addi Mario MD [Primary Care Provider] - Disposition Disposition: Home, Self Care
[2023-03-12 13:57] VITALS: BP 121/66; PULSE 44; RESP 23; O2SAT 98
[2023-03-12 14:29] LABS: Troponin-I HS 407 pg/mL (3.0-78.0)
[2023-03-12 14:56] VITALS: BP 131/82; PULSE 50; RESP 14; O2SAT 99
== END 2023-03-12 14:57 | disposition home or self-care (01) ==
PROVIDERS: Emergency Provider Emergency Medicine; PCP Internal Medicine; Visit Provider Emergency Medicine
DX: I48.0 Paroxysmal atrial fibrillation (principal); I25.10 Atherosclerotic heart disease of native coronary artery without angina pectoris; M50.30 Other cervical disc degeneration, unspecified cervical region; Z79.01 Long term (current) use of anticoagulants
CPT/HCPCS: 80048; 84484; 85025; 93005; 99285; A4216

== ENCOUNTER 2023-03-21 19:53 | Emergency (ER) | payer MEDICARE, SELFPAY ==
[2023-03-21 19:55] VITALS: BP 167/65; PULSE 54; RESP 18; TEMP 36.6; O2SAT 97; BMI 31.6
--- NOTE | 2023-03-21 22:43 | EDS_ITS ---
HPI History of Present Illness Chief Complaint: Nosebleed [facility] Medical History Advanced directives, counseling/discussion Anemia Anginal equivalent Aortic stenosis Asthma Atherosclerosis of coronary artery of [place] heart without angina pectoris BPH (benign prostatic hyperplasia) Bradycardia Cholelithiasis without obstruction Closed vertical fracture of left patella Degenerative disc disease, cervical Dermatitis Dizziness Essential hypertension Extensor tenosynovitis of right wrist Fall Fracture of triquetrum of left wrist Fracture of triquetrum of right wrist Glaucoma History of colon polyps History of pneumonia History of skin cancer Hyperlipidemia Hyponatremia Iron deficiency anemia Left facial swelling Liver disease Memory impairment Multiple fractures New onset atrial fibrillation Nonrheumatic aortic valve stenosis Obesity Orthostatic hypotension Osteoarthritis Physical debility Primary biliary cirrhosis Psoriasis Restrictive airway disease Rheumatoid arthritis Right foot pain Seasonal allergies Sinus bradycardia Thrombocytopenia Vitamin D deficiency Home Medications aspirin 81 mg tablet,delayed release 81 mg PO DAILY@0800 [facility] 12/06/16 [History Last Taken 06/06/20] travoprost 0.004 % eye drops 1 drp EACH EYE QHS glaucoma 06/02/19 [History Last Taken 06/06/20] acetaminophen 325 mg tablet 650 mg (2 x 325 mg) PO Q6H PRN PRN Pain Score 1-10 /Temp > 100.7 F 06/09/20 [Rx Last Taken Unknown] multivitamin 1 cap PO DAILY 07/24/20 [History Last Taken Unknown] magnesium oxide 500 mg tablet (Tobin) 1,500 mg PO QHS 08/05/20 [History Last Taken Unknown] cholecalciferol (vitamin D3) 50 mcg (2,000 unit) tablet 50 mcg PO DAILY 11/19/20 [History Last Taken Unknown] cyanocobalamin (vitamin B-12) 1,000 mcg capsule 1,000 mcg PO DAILY 11/19/20 [His tory Last Taken Unknown] finasteride 5 mg tablet 5 mg PO DAILY 11/19/20 [History Last Taken Unknown] methylcellulose (with sugar) oral powder (Citrucel (sucrose) oral powder) 1 tbsp PO DAILY PRN Constipation 02/03/21 [History Last Taken Unknown] netarsudil 0.02 % eye drops 1 drp ophthalmic (eye) DAILY glaucoma 02/03/21 [History Last Taken Unknown] clobetasol 0.05 % topical cream 1 applic topical DAILY PRN rash #60 grams 05/14/21 [Rx Last Taken Unknown] albuterol sulfate 90 mcg/actuation aerosol inhaler (Ventolin HFA) 2 puff inhalation Q4H PRN Asthma #8.5 grams 08/06/21 [Rx Last Taken Unknown] Disability Placard #1 ea 12/01/21 [Rx Last Taken Unknown] Arthritis Compound 1 click topical DAILY PRN Pain #60 CLICKS 02/08/22 [Rx Last Taken Unknown] ferrous sulfate 325 mg (65 mg iron) tablet 325 mg PO QODAY #90 tabs 06/28/22 [Rx Last Taken Unknown] atorvastatin 20 mg tablet 20 mg PO QHS cholesterol #90 tabs 07/19/22 [Rx Last Taken Unknown] nitroglycerin 0.4 mg sublingual tablet 0.4 mg sublingual Q5-15M PRN chest pain #25 tabs 07/28/22 [Rx Last Taken Unknown] budesonide-formoterol HFA 160 mcg-4.5 mcg/actuation aerosol inhaler (Symbicort) 2 puff inhalation DAILY 08/04/22 [History Last Taken Unknown] famotidine 20 mg tablet 20 mg PO DAILY #90 tabs 08/09/22 [Rx Last Taken Unknown] ursodiol 500 mg tablet 500 mg PO BIDCM liver disease #180 tabs 08/09/22 [Rx Last Taken Unknown] ezetimibe 10 mg tablet 10 mg PO DAILY heart health #90 tabs 09/15/22 [Rx Last Taken Unknown] cetirizine 10 mg capsule 10 mg PO DAILY PRN allergy 10/05/22 [History Last Taken Unknown] apixaban 5 mg tablet (Eliquis) 5 mg PO BID #60 tabs 12/08/22 [Rx Last Taken Unknown] dorzolamide 2 % eye drops 1 drp ophthalmic (eye) 12/29/22 [History Last Taken Unknown] erythromycin 5 mg/gram (0.5 %) eye ointment gm ophthalmic (eye) 12/29/22 [History Last Taken Unknown] rocklan EACH EYE 12/29/22 [History Last Taken Unknown] prednisone 5 mg tablets in a dose pack 5 mg PO DIRECTED right wrist extensor tenosyno #21 tabs 01/24/23 [Rx Last Taken Unknown] Allergy/AdvReac Type Severity Reaction Status Date / Time metoprolol [From Lopressor] Allergy Intermediate Shortness Verified 03/21/23 20: 01 of breath Penicillins Allergy Rash Verified 03/21/23 20:01 Family History Father Hypertension Grandmother Hypertension Other Alcoholism Liver disease Surgical History History of appendectomy History of cataract extraction History of colon resection History of partial colectomy (~2003) Presence of stent in coronary artery Social History Smoking Status: Never smoker alcohol intake: current alcohol intake frequency: holidays/special occasions only substance use type: does not use caffeine: No what type of physical activity do you participate in: weight training EXAM Physical Exam Const Vital Signs: 03/21/23 19:55 Temperature 98 F Temperature Source Temporal Pulse Rate 54 L Respiratory Rate 18 Blood Pressure 167/65 H Blood Pressure Mean 99 Pulse Ox 97 Oxygen Delivery Method Room Air [facility] [place] Narrative Medical decision making narrative: HISTORY OF PRESENT ILLNESS: 88-year-old male here with nosebleeding on Eliquis. States began earlier today then stopped and started again just before arrival. REVIEW OF SYSTEMS: Pertinent positives: Epistaxis Pertinent negatives: Chest pain, shortness of breath, lightheadedness or syncope PHYSICAL EXAM: Nursing triage notes reviewed, Vital signs reviewed Constitutional: please see mdm HENT: MMM, bleeding noted from right nares Eyes: Pupils equal round and reactive to light, Extraocular muscles intact Neck: No stridor, no JVD, full neck ROM Lungs: Clear to auscultation, No wheezing or rales. No increased work of breathing, no conversational dyspnea, no accessory muscle use, no nasal flaring. No respiratory distress noted Heart: Regular rate and rhythm, No murmurs, No rubs and No gallops, 2+ distal pulses (radial, femoral, posterior tibial) in all extremities Skin: No rash or lesions noted, no pallor noted MEDICAL DECISION MAKING: Chief Complaint: Epistaxis MDM Narrative: Patient was hemodynamically stable, afebrile, nontoxic-appearing. Active epistaxis from right nares. Epistaxis algorithm initiated. Initially told patient hold pressure for 10 minutes. After holding pressure extract the patient to blow his nose and applied topical vasoconstrictors. This led to cessation of bleeding. He is hemostatic. Did not require Rhino Rocket or other nasal tamponade. Gave strict return precautions follow-up instructions The patient and/or family, caregivers express understanding. The patient and/or family, caregivers agrees with the plan. Total critical care time today provided was at least 0 minutes. This excludes separately billable procedures. Critical care time (if documented) is secondary to the patient having high probability of clinically significant/life threatening deterioration in the patient's condition which required my urgent intervention. Shared decision making: I will have a discussion with the patient and or visitors regarding risk/benefits of further testing or admission. They will be made aware of of the risk/benefits inherent in this decision they will be given the opportunity to voice understanding. Discharge Plan Triage Chief Complaint: Nosebleed ED Provider: [place] Pepper Dx/Rx/DC Orders Clinical Impression: Epistaxis Instructions: ED Epistaxis (Adult) Prescriptions: No Action magnesium oxide [Tobin] 500 mg tablet 1,500 mg PO QHS multivitamin capsule 1 cap PO DAILY Citrucel (sucrose) Powder 1 tbsp PO DAILY PRN (Reason: Constipation) finasteride 5 mg tablet 5 mg PO DAILY Patient Comments: take 1 tablet by mouth once daily cyanocobalamin (vitamin B-12) 1,000 mcg capsule 1,000 mcg PO DAILY cholecalciferol (vitamin D3) 50 mcg (2,000 unit) tablet 50 mcg PO DAILY clobetasol 0.05 % cream 1 applic TOPICAL DAILY PRN (Reason: rash) Qty: 60 2RF budesonide-formoterol [Symbicort] 160-4.5 mcg/actuation HFA aerosol inhaler 2 puff inhalation DAILY Rx Instructions: administer with spacer, rinse mouth after each use dorzolamide 2 % drops 1 drp ophthalmic (eye) Patient Comments: instill 1 drop into both eyes twice a day rocklan EACH EYE erythromycin 5 mg/gram (0.5 %) ointment ophthalmic (eye) prednisone 5 mg tablets,dose pack 5 mg PO DIRECTED MDD per dose instructions Qty: 21 0RF Rx Instructions: see taper instructions aspirin 81 MG tablet 81 mg PO DAILY@0800 travoprost 1 DROP bottle 1 drp EACH EYE QHS cetirizine 10 mg capsule 10 mg PO DAILY PRN (Reason: allergy) acetaminophen 325 MG tablet 650 mg PO Q6H PRN PRN (Reason: Pain Score 1-10/Temp > 100.7 F) 0RF netarsudil 0.02 % drops 1 drp ophthalmic (eye) DAILY albuterol sulfate [Ventolin HFA] 90 mcg/actuation HFA aerosol inhaler 2 puff INHALATION Q4H PRN (Reason: Asthma) Qty: 8.5 2RF (DME) Disability Placard See Rx Instructions .Route .MEDSUPPLY Qty: 1 0RF Rx Instructions: Expires 12/01/2026 Arthritis Compound 1 click TOPICAL DAILY PRN (Reason: Pain) Qty: 60 1RF Rx Instructions: Diclofenac 3%, Lidocaine 3%, Baclofen 2% 1 click=o.25g 1 click topical daily 60 click tube ferrous sulfate 325 mg (65 mg iron) tablet 325 mg PO QODAY Qty: 90 2RF atorvastatin 20 mg tablet 20 mg PO QHS Qty: 90 3RF nitroglycerin 0.4 mg tablet, sublingual 0.4 mg SUBLINGUAL Q5-15M PRN (Reason: chest pain) Qty: 25 3RF ursodiol 500 mg tablet 500 mg PO BIDCM Qty: 180 3RF famotidine 20 mg tablet 20 mg PO DAILY Qty: 90 3RF ezetimibe 10 mg tablet 10 mg PO DAILY Qty: 90 3RF Eliquis 5 mg tablet 5 mg PO BID Qty: 60 11RF Primary Care Provider: Addi Mario Referrals: Addi Mario MD [Primary Care Provider] - Activity Restrictions/Additional Instructions: Thank you for trusting us with your care today! Please follow the nosebleeding algorithm. If you develop nosebleeding please hold firm pressure at the very tip or soft part of your nose. Please do this for 10 to 15 minutes. If this does not stop bleeding blow your nose vigorously. This will remove any clots or blood that will block medicine from taking effect. At this time apply a generous amount of Afrin to your nose to stop bleeding. If this does not relieve your bleeding please return to the emergency department immediately. Please return to the emergency department if your symptoms change or worsen. Please follow with your primary care physician for further outpatient evaluation and management. Disposition Disposition: Home, Self Care
[2023-03-21] MEDS: Oxymetazoline 0.05% 1 SPRAY SPRAY.BTL NASAL (23:05)
[2023-03-21 23:06] VITALS: RESP 16
[2023-03-21] MEDS: Lidocaine/Epi/Tetracaine 50 ML 1 APPLIC TOPICAL (23:06)
== END 2023-03-21 23:07 | disposition home or self-care (01) ==
PROVIDERS: Emergency Provider Emergency Medicine; PCP Internal Medicine; Visit Provider Emergency Medicine
DX: R04.0 Epistaxis (principal); I25.10 Atherosclerotic heart disease of native coronary artery without angina pectoris; Z79.01 Long term (current) use of anticoagulants
CPT/HCPCS: 99283

== ENCOUNTER → 2023-03-23 | Outpatient (CLI) | payer MEDICARE, SELFPAY ==
[2023-03-23 15:26] LABS: Absolute Lymphocyte Count 1.86 X10^3/uL (0.83-4.51); Absolute Neutrophil Count 3.6 X10^3/uL (2.0-7.7); Basophil# 0.04 X10^3/uL; Basophil% 0.6 % (0-1); Eosinophil# 0.16 X10^3/uL; Eosinophils% 2.5 % (0-5); Hematocrit 37.7 % (40-54); Hemoglobin 11.7 g/dL (13.0-16.5); Lymphocyte # 1.86 X10^3/ul (0.83-4.51); Lymphocyte % 29.1 % (19-41); Mean Corpuscular Hgb 30.6 pg (27.0-32.0); Mean Corpuscular Volume 98.7 fL (80-94); Mean Platelet Vol. 11.5 fl (6.2-12.0); Monocyte# 0.73 X10^3/uL; Monocyte% 11.4 % (0-10); NRBC Flagged by Analyzer 0 % (0-5); Neutrophil # 3.59 X10^3/uL (2.7-7.7); Neutrophil % 56.1 % (47-70); Platelet Count 148 K/mm3 (150-450); RBC Distribution Width SD 54.5 fl (35.1-43.9); Red Blood Count 3.82 M/mm3 (4.6-6.2); White Blood Count 6.4 K/mm3 (4.4-11.0)
[2023-03-23 15:32] LABS: International Normalized Ratio 1.1; Prothrombin Time (Protime)PT. 14.5 SECONDS (11.7-14.9)
[2023-03-23 15:33] LABS: Partial Thromboplast Time 33.5 Seconds (24.1-36.2)
[2023-03-23 15:46] LABS: Vitamin B12 623 pg/mL (211-911)
[2023-03-23 16:26] LABS: AST(SGOT) 31 U/L (15-37); Alanine Aminotransfer ALT/SGPT 21 U/L (16-61); Albumin, Serum 3.1 g/dL (3.2-5.0); Alkaline Phosphatase 85 U/L (45-117); Bilirubin, Direct 0.13 mg/dL (0.00-0.30); Globulin 4.4 g/dL (2.2-4.2); Protein, Total 7.5 g/dL (6.4-8.2)
== END | disposition home or self-care (01) ==
LOC: BIMLAB 13:52
PROVIDERS: PCP Internal Medicine; Referring Provider Internal Medicine; Visit Provider Internal Medicine
DX: D69.6 Thrombocytopenia, unspecified (principal); I10 Essential (primary) hypertension; R04.0 Epistaxis
CPT/HCPCS: 36415; 80076; 82607; 85025; 85610; 85730

== ENCOUNTER 2023-03-25 11:25 | Emergency (ER) | payer MEDICARE, SELFPAY ==
[2023-03-25 11:28] VITALS: BP 172/67; PULSE 62; RESP 16; TEMP 36.8; O2SAT 98; BMI 31.4
--- NOTE | 2023-03-25 12:08 | EDS_ITS ---
HPI History of Present Illness Chief Complaint: Nosebleed Detail of Chief Complaint: Nosebleed Informant: patient and spouse/S.O. Narrative Narrative: Patient presents to the emergency department with complaint of a nosebleed that started around 9 AM. Patient states that it came on spontaneously while he was eating. He states is from the right side of the nose. Patient held pressure but does not seem to stop the bleeding. He is on Eliquis for history of A-fib. Patient was seen in the emergency department 5 days ago for the same complaint and after he had hemostatic agents placed in the nose the bleeding stopped and he did not require any type of tampon. He had been doing relatively well until this morning. [facility] Medical History (Updated 03/25/23 @ 13:[address] Tremayne aMrie DO) Advanced directives, counseling/discussion Anemia Anginal equivalent Aortic stenosis Asthma Atherosclerosis of coronary artery of [place] heart without angina pectoris BPH (benign prostatic hyperplasia) Bradycardia Cholelithiasis without obstruction Closed vertical fracture of left patella Degenerative disc disease, cervical Dermatitis Dizziness Essential hypertension Extensor tenosynovitis of right wrist Fall Fracture of triquetrum of left wrist Fracture of triquetrum of right wrist Glaucoma History of colon polyps History of pneumonia History of skin cancer Hyperlipidemia Hyponatremia Iron deficiency anemia Left facial swelling Liver disease Memory impairment Multiple fractures New onset atrial fibrillation Nonrheumatic aortic valve stenosis Obesity Orthostatic hypotension Osteoarthritis Physical debility Primary biliary cirrhosis Psoriasis Restrictive airway disease Rheumatoid arthritis Right foot pain Seasonal allergies Sinus bradycardia Thrombocytopenia Vitamin D deficiency Home Medications aspirin 81 mg tablet,delayed release 81 mg PO DAILY@0800 heart health 12/06/16 [History Last Taken 06/06/20] travoprost 0.004 % eye drops 1 drp EACH EYE QHS glaucoma 06/02/19 [History Last Taken 06/06/20] acetaminophen 325 mg tablet 650 mg (2 x 325 mg) PO Q6H PRN PRN Pain Score 1- 10/Temp > 100.7 F 06/09/20 [Rx Last Taken Unknown] multivitamin 1 cap PO DAILY 07/24/20 [History Last Taken Unknown] magnesium oxide 500 mg tablet (Tobin) 1,500 mg PO QHS 08/05/20 [History Last Taken Unknown] cholecalciferol (vitamin D3) 50 mcg (2,000 unit) tablet 50 mcg PO DAILY 11/19/20 [History Last Taken Unknown] cyanocobalamin (vitamin B-12) 1,000 mcg capsule 1,000 mcg PO DAILY 11/19/20 [History Last Taken Unknown] finasteride 5 mg tablet 5 mg PO DAILY 11/19/20 [History Last Taken Unknown] methylcellulose (with sugar) oral powder (Citrucel (sucrose) oral powder) 1 tbsp PO DAILY PRN Constipation 02/03/21 [History Last Taken Unknown] netarsudil 0.02 % eye drops 1 drp ophthalmic (eye) DAILY glaucoma 02/03/21 [History Last Taken Unknown] albuterol sulfate 90 mcg/actuation aerosol inhaler (Ventolin HFA) 2 puff inhalation Q4H PRN Asthma #8.5 grams 08/06/21 [Rx Last Taken Unknown] Disability Placard #1 ea 12/01/21 [Rx Last Taken Unknown] Arthritis Compound 1 click topical DAILY PRN Pain #60 CLICKS 02/08/22 [Rx Last Taken Unknown] ferrous sulfate 325 mg (65 mg iron) tablet 325 mg PO QODAY #90 tabs 06/28/22 [Rx Last Taken Unknown] atorvastatin 20 mg tablet 20 mg PO QHS cholesterol #90 tabs 07/19/22 [Rx Last Taken Unknown] nitroglycerin 0.4 mg sublingual tablet 0.4 mg sublingual Q5-15M PRN chest pain #25 tabs 07/28/22 [Rx Last Taken Unknown] budesonide-formoterol HFA 160 mcg-4.5 mcg/actuation aerosol inhaler (Symbicort) 2 puff inhalation DAILY 08/04/22 [History Last Taken Unknown] famotidine 20 mg tablet 20 mg PO DAILY #90 tabs 08/09/22 [Rx Last Taken Unknown] ursodiol 500 mg tablet 500 mg PO BIDCM liver disease #180 tabs 08/09/22 [Rx Last Taken Unknown] ezetimibe 10 mg tablet 10 mg PO DAILY heart health #90 tabs 09/15/22 [Rx Last Taken Unknown] cetirizine 10 mg capsule 10 mg PO DAILY PRN allergy 10/05/22 [History Last Taken Unknown] apixaban 5 mg tablet (Eliquis) 5 mg PO BID #60 tabs 12/08/22 [Rx Last Taken Unknown] dorzolamide 2 % eye drops 1 drp ophthalmic (eye) 12/29/22 [History Last Taken Unknown] erythromycin 5 mg/gram (0.5 %) eye ointment gm ophthalmic (eye) 12/29/22 [History Last Taken Unknown] rocklan EACH EYE 12/29/22 [History Last Taken Unknown] prednisone 5 mg tablets in a dose pack 5 mg PO DIRECTED right wrist extensor tenosyno #21 tabs 01/24/23 [Rx Last Taken Unknown] clobetasol 0.05 % topical cream 1 applic topical DAILY PRN rash #60 grams 03/24/23 [Rx Last Taken Unknown] Allergy/AdvReac Type Severity Reaction Status Date / Time metoprolol [From Lopressor] Allergy Intermediate Shortness Verified 03/24/23 16:33 of breath Penicillins Allergy Rash Verified 03/24/23 16:33 Family History Father Hypertension Grandmother Hypertension Other Alcoholism Liver disease Surgical History History of appendectomy History of cataract extraction History of colon resection History of partial colectomy (~2003) Presence of stent in coronary artery Social History Smoking Status: Never smoker alcohol intake: current alcohol intake frequency: holidays/special occasions only substance use type: does not use caffeine: No what type of physical activity do you participate in: weight training ROS ROS ED Review of Systems ROS Unobtainable: other Constitutional Constitutional ED: Reports lethargy; Denies chills, fever(s), sweats or weight loss Eyes Eyes: Denies blurry vision, change in vision or diplopia ENT ENT ED: Reports other Details: Nosebleed ; Denies rhinorrhea or sore throat Cardiovascular Cardiovascular: Denies chest pain, orthopnea or racing heartbeat Respiratory/Chest Respiratory/Chest: Denies cough, dyspnea, dyspnea on exertion, orthopnea or sputum Gastrointestinal Gastrointestinal: Denies abdominal pain, diarrhea, nausea or vomiting Genitourinary Genitourinary ED: Denies dysuria, hematuria or urinary frequency Musculoskeletal Musculoskeletal: Denies arthralgias, back pain, myalgias or neck pain Integumentary Denies abscess, Abrasions or rash Neurologic Neurologic: Denies headache(s) or weakness Psychiatric Psychiatric: Denies anxiety, depression or suicidal thoughts Endocrine Endocrinology: Denies polydipsia, polyphagia or polyuria Hematologic/Lymphatic Hematologic/Lymphatic: Denies easy bleeding, easy bruising or lymphadenopathy Allergic/Immunologic Allergic/Immunologic ED: Denies mouth swelling, tongue swelling or urticaria EXAM Physical Exam Const Vital Signs: 03/25/23 11:28 03/25/23 13:24 Temperature 98.2 F Temperature Source Oral Pulse Rate 62 Respiratory Rate 16 18 Blood Pressure 172/67 H Blood Pressure Mean 102 Pulse Ox 98 Oxygen Delivery Method Room Air Positive well nourished and well developed General Appearance ED: well developed and NAD HEENT Reports TM's clear and moist mucous membranes HEENT Narrative: Patient presents with a right-sided nosebleed. I did have him blow his nose from the right side a large clot was expressed. I am unable to visualize the source of the bleeding. normocephalic and atraumatic; Negative for trauma or tenderness Tympanic Membrane ED: Yes TM's clear Eyes PERRL and EOMs intact bilaterally General Eye ED: Negative for pale conjunctiva or scleral icterus Neck no lymphadenopathy, supple and no JVD General: Negative for tenderness Chest Wall inspection of chest normal and palpation of chest normal Chest: Negative for tenderness Resp normal respiratory effort and clear to auscultation bilaterally Effort and Inspection: Negative for respiratory distress or pain with movement Auscultation: Negative for rhonchi, wheezes or diminished lung sounds Cardio regular rate, regular rhythm, S1 normal heart sound, S2 normal heart sound and no murmurs Peripheral Pulses: pulses 2+ throughout GI normal to inspection, nondistended, normoactive bowel sounds, soft to palpation, non-tender, non-distended and no masses Back/Spine no CVA tenderness and no thoracic nor lumbar tenderness Extremity normal to inspection General Extremety ED: Negative for edema General Extremity: Negative for edema Neuro oriented x3, CN's II-XII intact bilaterally, no sensory deficits noted and gait normal Sensorium / Orientation: awake, alert, oriented to person, oriented to place and oriented to time Motor Exam: strength 5/5 throughout and strength abnormal Psych mental status grossly normal Skin no rashes or lesions noted and no wounds MDM MDM MDM Narrative Medical decision making narrative: After blowing his nose and expressing clot. I was able to place a cotton ball that was dipped in Minerva solution into the right nasal vault. We will observe him for 20 minutes and then reevaluate. Patient reevaluated after the cottonball was removed from the nose and there was no further bleeding. I am unable to visualize where the source of the bleeding was. Patient was observed in the department and then was ambulated and he had no further bleeding. At this point will refer to ENT for follow-up. Advised to return if constant pressure for 20 minutes does not stop the bleeding should the bleeding resume. Discharge Plan Triage Chief Complaint: Nosebleed ED Provider: Tremayne Marie Dx/Rx/DC Orders Clinical Impression: Epistaxis Instructions: ED Epistaxis (Adult) Prescriptions: No Action magnesium oxide [Tobin] 500 mg tablet 1,500 mg PO QHS multivitamin capsule 1 cap PO DAILY Citrucel (sucrose) Powder 1 tbsp PO DAILY PRN (Reason: Constipation) finasteride 5 mg tablet 5 mg PO DAILY Patient Comments: take 1 tablet by mouth once daily cyanocobalamin (vitamin B-12) 1,000 mcg capsule 1,000 mcg PO DAILY cholecalciferol (vitamin D3) 50 mcg (2,000 unit) tablet 50 mcg PO DAILY budesonide-formoterol [Symbicort] 160-4.5 mcg/actuation HFA aerosol inhaler 2 puff inhalation DAILY Rx Instructions: administer with spacer, rinse mouth after each use dorzolamide 2 % drops 1 drp ophthalmic (eye) Patient Comments: instill 1 drop into both eyes twice a day rocklan EACH EYE erythromycin 5 mg/gram (0.5 %) ointment ophthalmic (eye) prednisone 5 mg tablets,dose pack 5 mg PO DIRECTED MDD per dose instructions Qty: 21 0RF Rx Instructions: see taper instructions clobetasol 0.05 % cream 1 applic TOPICAL DAILY PRN (Reason: rash) Qty: 60 2RF aspirin 81 MG tablet 81 mg PO DAILY@0800 travoprost 1 DROP bottle 1 drp EACH EYE QHS cetirizine 10 mg capsule 10 mg PO DAILY PRN (Reason: allergy) acetaminophen 325 MG tablet 650 mg PO Q6H PRN PRN (Reason: Pain Score 1-10/Temp > 100.7 F) 0RF netarsudil 0.02 % drops 1 drp ophthalmic (eye) DAILY albuterol sulfate [Ventolin HFA] 90 mcg/actuation HFA aerosol inhaler 2 puff INHALATION Q4H PRN (Reason: Asthma) Qty: 8.5 2RF (DME) Disability Placard See Rx Instructions .Route .MEDSUPPLY Qty: 1 0RF Rx Instructions: Expires 12/01/2026 Arthritis Compound 1 click TOPICAL DAILY PRN (Reason: Pain) Qty: 60 1RF Rx Instructions: Diclofenac 3%, Lidocaine 3%, Baclofen 2% 1 click=o.25g 1 click topical daily 60 click tube ferrous sulfate 325 mg (65 mg iron) tablet 325 mg PO QODAY Qty: 90 2RF atorvastatin 20 mg tablet 20 mg PO QHS Qty: 90 3RF nitroglycerin 0.4 mg tablet, sublingual 0.4 mg SUBLINGUAL Q5-15M PRN (Reason: chest pain) Qty: 25 3RF ursodiol 500 mg tablet 500 mg PO BIDCM Qty: 180 3RF famotidine 20 mg tablet 20 mg PO DAILY Qty: 90 3RF ezetimibe 10 mg tablet 10 mg PO DAILY Qty: 90 3RF Eliquis 5 mg tablet 5 mg PO BID Qty: 60 11RF Primary Care Provider: Addi Mario Referrals: Addi Mraio MD [Primary Care Provider] - Arian Rainey MD [Med Staff - Active Staff] - 3-5 Days Disposition Disposition: Home, Self Care Discharge Date/Time: 03/25/23 13:24
[2023-03-25] MEDS: Mixture 30 ML Bottle 5 ML TOPICAL (12:16)
[2023-03-25 13:24] VITALS: RESP 18
== END 2023-03-25 13:24 | disposition home or self-care (01) ==
PROVIDERS: Emergency Provider Emergency Medicine; PCP Internal Medicine; Visit Provider Emergency Medicine
DX: R04.0 Epistaxis (principal); I48.91 Unspecified atrial fibrillation; I25.10 Atherosclerotic heart disease of native coronary artery without angina pectoris; Z79.01 Long term (current) use of anticoagulants
CPT/HCPCS: 30901; 99284

== ENCOUNTER 2023-04-22 20:16 | Emergency (ER) | payer MEDICARE, SELFPAY ==
[2023-04-22 20:18] VITALS: BP 146/90; PULSE 83; RESP 18; TEMP 37; O2SAT 96; BMI 31.5
--- NOTE | 2023-04-22 20:42 | EX.ED.DYSGE1 ---
HPI <BASSEM Soria - Last Filed: 04/22/23 22:01> History of Present Illness Chief Complaint: Cough Narrative Narrative: Patient presenting today with a dry cough, chills, and overall just not feeling well that he has had for the past 2 days. He took a rapid COVID test at home today but is unsure if it was positive or negative as he has a hard time reading the test. He reports a history of asthma. He denies any shortness of breath, chest pain, abdominal pain, nausea, and vomiting. PFSH <BASSEM Soria - Last Filed: 04/22/23 22:01> [facility] Medical History Advanced directives, counseling/discussion Anemia Anginal equivalent Aortic stenosis Asthma Atherosclerosis of coronary artery of [place] heart without angina pectoris BPH (benign prostatic hyperplasia) Bradycardia Cholelithiasis without obstruction Closed vertical fracture of left patella Degenerative disc disease, cervical Dermatitis Dizziness Essential hypertension Extensor tenosynovitis of right wrist Fall Fracture of triquetrum of left wrist Fracture of triquetrum of right wrist Glaucoma History of colon polyps History of pneumonia History of skin cancer Hyperlipidemia Hyponatremia Iron deficiency anemia Left facial swelling Liver disease Memory impairment Multiple fractures New onset atrial fibrillation Nonrheumatic aortic valve stenosis Obesity Orthostatic hypotension Osteoarthritis Physical debility Primary biliary cirrhosis Psoriasis Restrictive airway disease Rheumatoid arthritis Right foot pain Seasonal allergies Sinus bradycardia Thrombocytopenia Vitamin D deficiency Home Medications aspirin 81 mg tablet,delayed release 81 mg PO DAILY@0800 heart health 12/06/16 [History Last Taken 06/06/20] travoprost 0.004 % eye drops 1 drp EACH EYE QHS glaucoma 06/02/19 [History Last Taken 06/06/20] acetaminophen 325 mg tablet 650 mg (2 x 325 mg) PO Q6H PRN PRN Pain Score 1-10/Temp > 100.7 F 06/09/20 [Rx Last Taken Unknown] multivitamin 1 cap PO DAILY 07/24/20 [History Last Taken Unknown] magnesium oxide 500 mg tablet (Tobin) 1,500 mg PO QHS 08/05/20 [History Last Taken Unknown] cholecalciferol (vitamin D3) 50 mcg (2,000 unit) tablet 50 mcg PO DAILY 11/19/20 [History Last Taken Unknown] cyanocobalamin (vitamin B-12) 1,000 mcg capsule 1,000 mcg PO DAILY 11/19/20 [History Last Taken Unknown] finasteride 5 mg tablet 5 mg PO DAILY 11/19/20 [History Last Taken Unknown] methylcellulose (with sugar) oral powder (Citrucel (sucrose) oral powder) 1 tbsp PO DAILY PRN Constipation 02/03/21 [History Last Taken Unknown] netarsudil 0.02 % eye drops 1 drp ophthalmic (eye) DAILY glaucoma 02/03/21 [History Last Taken Unknown] albuterol sulfate 90 mcg/actuation aerosol inhaler (Ventolin HFA) 2 puff inhalation Q4H PRN Asthma #8.5 grams 08/06/21 [Rx Last Taken Unknown] Disability Placard #1 ea 12/01/21 [Rx Last Taken Unknown] Arthritis Compound 1 click topical DAILY PRN Pain #60 CLICKS 02/08/22 [Rx Last Taken Unknown] ferrous sulfate 325 mg (65 mg iron) tablet 325 mg PO QODAY #90 tabs 06/28/22 [Rx Last Taken Unknown] atorvastatin 20 mg tablet 20 mg PO QHS cholesterol #90 tabs 07/19/22 [Rx Last Taken Unknown] nitroglycerin 0.4 mg sublingual tablet 0.4 mg sublingual Q5-15M PRN chest pain #25 tabs 07/28/22 [Rx Last Taken Unknown] budesonide-formoterol HFA 160 mcg-4.5 mcg/actuation aerosol inhaler (Symbicort) 2 puff inhalation DAILY 08/04/22 [History Last Taken Unknown] famotidine 20 mg tablet 20 mg PO DAILY #90 tabs 08/09/22 [Rx Last Taken Unknown] ursodiol 500 mg tablet 500 mg PO BIDCM liver disease #180 tabs 08/09/22 [Rx Last Taken Unknown] ezetimibe 10 mg tablet 10 mg PO DAILY heart health #90 tabs 09/15/22 [Rx Last Taken Unknown] cetirizine 10 mg capsule 10 mg PO DAILY PRN allergy 10/05/22 [History Last Taken Unknown] apixaban 5 mg tablet (Eliquis) 5 mg PO BID #60 tabs 12/08/22 [Rx Last Taken Unknown] dorzolamide 2 % eye drops 1 drp ophthalmic (eye) 12/29/22 [History Last Taken Unknown] erythromycin 5 mg/gram (0.5 %) eye ointment gm ophthalmic (eye) 12/29/22 [History Last Taken Unknown] rocklan EACH EYE 12/29/22 [History Last Taken Unknown] prednisone 5 mg tablets in a dose pack 5 mg PO DIRECTED right wrist extensor tenosyno #21 tabs 01/24/23 [Rx Last Taken Unknown] clobetasol 0.05 % topical cream 1 applic topical DAILY PRN rash #60 grams 03/24/23 [Rx Last Taken Unknown] Allergy/AdvReac Type Severity Reaction Status Date / Time metoprolol [From Lopressor] Allergy Intermediate Shortness Verified 04/22/23 20:21 of breath Penicillins Allergy Rash Verified 04/22/23 20:21 Family History Father Hypertension Grandmother Hypertension Other Alcoholism Liver disease Surgical History History of appendectomy History of cataract extraction History of colon resection History of partial colectomy (~2003) Presence of stent in coronary artery Social History Smoking Status: Never smoker alcohol intake: current alcohol intake frequency: holidays/special occasions only substance use type: does not use caffeine: No what type of physical activity do you participate in: weight training ROS <BASSEM Soria - Last Filed: 04/22/23 22:01> ROS ED Constitutional Constitutional ED: Denies chills or fever(s) Cardiovascular Cardiovascular: Denies chest pain or palpitations Respiratory/Chest Respiratory/Chest: Reports cough; Denies dyspnea, dyspnea on exertion, tachypnea or wheezing Gastrointestinal Gastrointestinal: Denies abdominal pain, nausea or vomiting Genitourinary Genitourinary ED: Denies dysuria, hematuria or urinary urgency Musculoskeletal Musculoskeletal: Denies arthralgias or myalgias Integumentary Denies abscess, Abrasions or rash Neurologic Neurologic: Denies confusion, dizziness or paresthesias EXAM <BASSEM Soria - Last Filed: 04/22/23 22:01> Physical Exam Const Vital Signs: 04/22/23 20:18 04/22/23 20:55 Temperature 98.6 F Temperature Source Temporal Pulse Rate 83 Respiratory Rate 18 Respiratory Effort Non-Labored Blood Pressure 146/90 H Blood Pressure Mean 108 Pulse Ox 96 Oxygen Delivery Method Room Air Positive well nourished, well developed and no apparent distress General Appearance ED: well developed HEENT Reports normocephalic and head/scalp atraumatic Mouth ED: Yes moist mucous membranes normal Eyes PERRL and EOMs intact bilaterally Neck full ROM and supple Chest Wall inspection of chest normal Resp normal respiratory effort and clear to auscultation bilaterally Resp Narrative: Crackles at the lung bases bilaterally. Cardio regular rate and regular rhythm GI soft to palpation, non-tender, non-distended and no masses Back/Spine normal ROM and normal to inspection Extremity normal to inspection and full ROM Neuro oriented x3, CN's II-XII intact bilaterally, moves all extremities, no focal motor deficits and no sensory deficits noted Sensorium / Orientation: awake and alert Psych mental status grossly normal and thought process normal Skin no rashes or lesions noted and no wounds <Dr. Heber Miranda MD - Last Filed: 04/22/23 22:17> Physical Exam Const Vital Signs: 04/22/23 20:18 04/22/23 20:55 Temperature 98.6 F Temperature Source Temporal Pulse Rate 83 Respiratory Rate 18 Respiratory Effort Non-Labored Blood Pressure 146/90 H Blood Pressure Mean 108 Pulse Ox 96 Oxygen Delivery Method Room Air [facility] <BASSEM Soria - Last Filed: 04/22/23 22:01> [facility] Narrative Medical decision making narrative: Patient presenting today due to a dry cough, chills, just not feeling well for the past 2 days. He is well-appearing and in no acute distress, vitals are unremarkable. He does not feel short of breath, he is not experiencing any chest pain. He was sent in by his PCP with concerns that he could have COVID as he took a COVID test earlier but was unable to interpret the result and was not sure if it was positive or not. He has a history of asthma but overall his lungs sound clear aside from slight crackles at the bases. He took a breathing treatment prior to arriving and does not feel that he needs one at this time. Chest x-ray will be obtained to rule out infiltrate and rapid COVID and flu will be obtained. Radiography X-Ray: Read by ED Physician and Read by Radiologist Diagnostic Testing: Clinical Impression(s) from Imaging Studies Chest X-Ray 04/22/23 21:08 IMPRESSION: Mild basilar atelectasis. Electronically Signed: Mehran DO Zechariah at 21:22 EDT , <Dr. Heber Miranda MD - Last Filed: 04/22/23 22:17> [facility] Narrative Medical decision making narrative: Patient presenting today due to a dry cough, chills, just not feeling well for the past 2 days. He is well-appearing and in no acute distress, vitals are unremarkable. He does not feel short of breath, he is not experiencing any chest pain. He was sent in by his PCP with concerns that he could have COVID as he took a COVID test earlier but was unable to interpret the result and was not sure if it was positive or not. He has a history of asthma but overall his lungs sound clear aside from slight crackles at the bases. He took a breathing treatment prior to arriving and does not feel that he needs one at this time. Chest x-ray will be obtained to rule out infiltrate and rapid COVID and flu will be obtained. Patient's COVID was positive. We talked about the option of Paxlovid and the risks and benefits. He prefers not to start at this time and I think that is reasonable. I explained that he does have 5 days from onset of symptoms. If he has further symptoms or gets worse he is welcome to return here or contact his physician about treatment. Radiography Diagnostic Testing: Clinical Impression(s) from Imaging Studies Chest X-Ray 04/22/23 21:08 IMPRESSION: Mild basilar atelectasis. Electronically Signed: Mehrantaylor Apple DO at 21:22 EDT , Treatment and Re-Evaluation :: I have personally performed a face to face assessment of the patient and have reviewed the RADHA Note. I performed a substantive portion of the visit including all aspects of the following. My villalobos findings include: History: Patient presents with cough. He states he coughs intermittently all the time due to asthma. For the last 2 days he has been coughing a little bit more. He had subjective fevers yesterday but none since. He has no productivity. He has wheezed a couple times and used his rescue inhaler. No chest pain. No hemoptysis. No nausea vomiting. No leg pain or swelling. Exam: Patient awake alert. Looks very comfortable in bed. Carries on normal conversation. HEENT is normal. Mucous membranes are moist. No swelling or exudates. Neck shows no JVD or stridor. Lungs actually sound good. There may be a few dry crackles on his first few breaths but they clear after deep breath. No wheezing. No rhonchi. No coughing even when I have him take a deep breath. Heart is regular. He does have a 2 out of 6 to 3 out of 6 systolic murmur but he states this is chronic. His abdomen is benign. He has no notable peripheral edema tenderness or asymmetry. Medical Decision Making: Patient was mostly concerned about COVID. COVID and flu testing is going to be done. We will do chest x-ray also. Discharge Plan Triage Chief Complaint: Cough ED Midlevel Provider: Marisol Crum ED Provider: Heber Miranda Dx/Rx/DC Orders Clinical Impression: COVID-19, History of asthma, Cough Instructions: Coronavirus Disease 2019 (COVID-19): Caring for Yourself or Others Prescriptions: No Action magnesium oxide [Tobin] 500 mg tablet 1,500 mg PO QHS multivitamin capsule 1 cap PO DAILY Citrucel (sucrose) Powder 1 tbsp PO DAILY PRN (Reason: Constipation) finasteride 5 mg tablet 5 mg PO DAILY Patient Comments: take 1 tablet by mouth once daily cyanocobalamin (vitamin B-12) 1,000 mcg capsule 1,000 mcg PO DAILY cholecalciferol (vitamin D3) 50 mcg (2,000 unit) tablet 50 mcg PO DAILY budesonide-formoterol [Symbicort] 160-4.5 mcg/actuation HFA aerosol inhaler 2 puff inhalation DAILY Rx Instructions: administer with spacer, rinse mouth after each use dorzolamide 2 % drops 1 drp ophthalmic (eye) Patient Comments: instill 1 drop into both eyes twice a day crescencio EACH EYE erythromycin 5 mg/gram (0.5 %) ointment ophthalmic (eye) prednisone 5 mg tablets,dose pack 5 mg PO DIRECTED MDD per dose instructions Qty: 21 0RF Rx Instructions: see taper instructions clobetasol 0.05 % cream 1 applic TOPICAL DAILY PRN (Reason: rash) Qty: 60 2RF aspirin 81 MG tablet 81 mg PO DAILY@0800 travoprost 1 DROP bottle 1 drp EACH EYE QHS cetirizine 10 mg capsule 10 mg PO DAILY PRN (Reason: allergy) acetaminophen 325 MG tablet 650 mg PO Q6H PRN PRN (Reason: Pain Score 1-10/Temp > 100.7 F) 0RF netarsudil 0.02 % drops 1 drp ophthalmic (eye) DAILY albuterol sulfate [Ventolin HFA] 90 mcg/actuation HFA aerosol inhaler 2 puff INHALATION Q4H PRN (Reason: Asthma) Qty: 8.5 2RF (DME) Disability Placard See Rx Instructions .Route .MEDSUPPLY Qty: 1 0RF Rx Instructions: Expires 12/01/2026 Arthritis Compound 1 click TOPICAL DAILY PRN (Reason: Pain) Qty: 60 1RF Rx Instructions: Diclofenac 3%, Lidocaine 3%, Baclofen 2% 1 click=o.25g 1 click topical daily 60 click tube ferrous sulfate 325 mg (65 mg iron) tablet 325 mg PO QODAY Qty: 90 2RF atorvastatin 20 mg tablet 20 mg PO QHS Qty: 90 3RF nitroglycerin 0.4 mg tablet, sublingual 0.4 mg SUBLINGUAL Q5-15M PRN (Reason: chest pain) Qty: 25 3RF ursodiol 500 mg tablet 500 mg PO BIDCM Qty: 180 3RF famotidine 20 mg tablet 20 mg PO DAILY Qty: 90 3RF ezetimibe 10 mg tablet 10 mg PO DAILY Qty: 90 3RF Eliquis 5 mg tablet 5 mg PO BID Qty: 60 11RF Primary Care Provider: Addi Mario Referrals: Addi Mario MD [Primary Care Provider] - 1-2 Days if not improving Disposition Disposition: Home, Self Care
--- NOTE | 2023-04-22 21:08 | RAD_ITS ---
INDICATION: cough EXAMINATION/TECHNIQUE: X-RAY - XR Chest 2 Views COMPARISON: FINDINGS: LINES/DEVICES: None. LUNGS: No consolidation, edema or effusion. Mild basilar atelectasis. No pneumothorax. MEDIASTINUM AND CARDIOVASCULAR STRUCTURES: Cardiac silhouette not enlarged. Central airways and mediastinal contour are unremarkable. BONES AND SOFT TISSUES: Unremarkable. RAD/Chest PA and Lateral IMPRESSION: Mild basilar atelectasis. Electronically Signed: Mehran Apple DO at 21:22 EDT Reading Location ID and State: [facility] / [place] Tel [phone], Service support ,
[2023-04-22 22:20] VITALS: BP 145/76; PULSE 83; RESP 14; O2SAT 97
== END 2023-04-22 22:36 | disposition home or self-care (01) ==
PROVIDERS: Emergency Provider Emergency Medicine; PCP Internal Medicine; Visit Provider Emergency Medicine
DX: U07.1 COVID-19 (principal); M06.9 Rheumatoid arthritis, unspecified; I48.91 Unspecified atrial fibrillation; I10 Essential (primary) hypertension; I25.10 Atherosclerotic heart disease of native coronary artery without angina pectoris; E78.5 Hyperlipidemia, unspecified; J45.909 Unspecified asthma, uncomplicated; N40.0 Benign prostatic hyperplasia without lower urinary tract symptoms; Z79.82 Long term (current) use of aspirin; Z79.899 Other long term (current) drug therapy; Z79.01 Long term (current) use of anticoagulants
CPT/HCPCS: 71046; 87428; 99282

== ENCOUNTER → 2023-04-30 | Outpatient (CLI) | payer MEDICARE, SELFPAY ==
--- NOTE | 2023-04-30 11:39 | RAD_ITS ---
STUDY: X-RAY CHEST REASON FOR EXAM: Male, 88 years old. Shortness of breath, cough TECHNIQUE: PA and lateral views of the chest. COMPARISON: 04/22/2023 FINDINGS: The lungs are clear and expanded. There is no demonstrated pleural abnormality. Normal size heart. Normal mediastinum and tiara. Normal visualized pulmonary arteries. Normal visualized aortic arch and descending thoracic aorta. Normal visualized thoracic spine. Normal visualized ribs, clavicles, and shoulders. There is no demonstrated abnormality of the visualized soft tissue structures of the upper abdomen. RAD/Chest PA and Lateral IMPRESSION: Normal x-ray examination of the chest. Electronically Signed: Jag Haque MD at 12:01 EDT ,
== END | disposition home or self-care (01) ==
LOC: RAD 11:36
PROVIDERS: PCP Internal Medicine; Visit Provider Internal Medicine
DX: U07.1 COVID-19 (principal); R05.9 Cough, unspecified
CPT/HCPCS: 71046

== ENCOUNTER 2023-06-23 11:21 | Emergency (ER) | payer MEDICARE, SELFPAY ==
[2023-06-23 11:22] VITALS: BP 164/70; PULSE 63; RESP 14; TEMP 36.8; O2SAT 100; BMI 30.6
--- NOTE | 2023-06-23 11:43 | EDS_ITS ---
HPI History of Present Illness Chief Complaint: Male Pain/Injury [facility] Medical History Advanced directives, counseling/discussion Anemia Anginal equivalent Aortic stenosis Asthma Atherosclerosis of coronary artery of [place] heart without angina pectoris BPH (benign prostatic hyperplasia) Bradycardia Cholelithiasis without obstruction Closed vertical fracture of left patella Degenerative disc disease, cervical Dermatitis Dizziness Essential hypertension Extensor tenosynovitis of right wrist Fall Fracture of triquetrum of left wrist Fracture of triquetrum of right wrist Glaucoma History of colon polyps History of pneumonia History of skin cancer Hyperlipidemia Hyponatremia Iron deficiency anemia Left facial swelling Liver disease Memory impairment Multiple fractures New onset atrial fibrillation Nonrheumatic aortic valve stenosis Obesity Orthostatic hypotension Osteoarthritis Physical debility Primary biliary cirrhosis Psoriasis Restrictive airway disease Rheumatoid arthritis Right foot pain Seasonal allergies Sinus bradycardia Thrombocytopenia Vitamin D deficiency Home Medications aspirin 81 mg tablet,delayed release 81 mg PO DAILY@0800 [facility] health 12/06/16 [History Last Taken 06/06/20] travoprost 0.004 % eye drops 1 drp EACH EYE QHS glaucoma 06/02/19 [History Last Taken 06/06/20] acetaminophen 325 mg tablet 650 mg (2 x 325 mg) PO Q6H PRN PRN Pain Score 1- 10/Temp > 100.7 F 06/09/20 [Rx Last Taken Unknown] multivitamin 1 cap PO DAILY 07/24/20 [History Last Taken Unknown] magnesium oxide 500 mg tablet (Tobin) 1,500 mg PO QHS 08/05/20 [History Last Taken Unknown] cholecalciferol (vitamin D3) 50 mcg (2,000 unit) tablet 50 mcg PO DAILY 11/19/20 [History Last Taken Unknown] cyanocobalamin (vitamin B-12) 1,000 mcg capsule 1,000 mcg PO DAILY 11/19/20 [History Last Taken Unknown] finasteride 5 mg tablet 5 mg PO DAILY 11/19/20 [History Last Taken Unknown] methylcellulose (with sugar) oral powder (Citrucel (sucrose) oral powder) 1 tbsp PO DAILY PRN Constipation 02/03/21 [History Last Taken Unknown] netarsudil 0.02 % eye drops 1 drp ophthalmic (eye) DAILY glaucoma 02/03/21 [History Last Taken Unknown] Disability Placard #1 ea 12/01/21 [Rx Last Taken Unknown] Arthritis Compound 1 click topical DAILY PRN Pain #60 CLICKS 02/08/22 [Rx Last Taken Unknown] ferrous sulfate 325 mg (65 mg iron) tablet 325 mg PO QODAY #90 tabs 06/28/22 [Rx Last Taken Unknown] atorvastatin 20 mg tablet 20 mg PO QHS cholesterol #90 tabs 07/19/22 [Rx Last Taken Unknown] nitroglycerin 0.4 mg sublingual tablet 0.4 mg sublingual Q5-15M PRN chest pain #25 tabs 07/28/22 [Rx Last Taken Unknown] famotidine 20 mg tablet 20 mg PO DAILY #90 tabs 08/09/22 [Rx Last Taken Unknown] ursodiol 500 mg tablet 500 mg PO BIDCM liver disease #180 tabs 08/09/22 [Rx Last Taken Unknown] ezetimibe 10 mg tablet 10 mg PO DAILY heart health #90 tabs 09/15/22 [Rx Last Taken Unknown] cetirizine 10 mg capsule 10 mg PO DAILY PRN allergy 10/05/22 [History Last Taken Unknown] apixaban 5 mg tablet (Eliquis) 5 mg PO BID #60 tabs 12/08/22 [Rx Last Taken Unknown] dorzolamide 2 % eye drops 1 drp ophthalmic (eye) 12/29/22 [History Last Taken Unknown] erythromycin 5 mg/gram (0.5 %) eye ointment gm ophthalmic (eye) 12/29/22 [History Last Taken Unknown] rocklan EACH EYE 12/29/22 [History Last Taken Unknown] prednisone 5 mg tablets in a dose pack 5 mg PO DIRECTED right wrist extensor tenosyno #21 tabs 01/24/23 [Rx Last Taken Unknown] clobetasol 0.05 % topical cream 1 applic topical DAILY PRN rash #60 grams 03/24/23 [Rx Last Taken Unknown] albuterol sulfate 90 mcg/actuation aerosol inhaler (Ventolin HFA) 2 puff inhalation Q4H PRN Asthma #8.5 grams 04/28/23 [Rx Last Taken Unknown] nebulizer and compressor (Portable Nebulizer System) #1 ea 04/30/23 [Rx Last Taken Unknown] budesonide-formoterol HFA 160 mcg-4.5 mcg/actuation aerosol inhaler (Symbicort) 2 puff inhalation DAILY #3 ea 05/02/23 [Rx Last Taken Unknown] albuterol sulfate 2.5 mg/3 mL (0.083 %) solution for nebulization 2.5 mg (3 mL) inhalation Q4H PRN shortness of breath or wheezing #90 ea 06/08/23 [Rx Last Taken Unknown] Allergy/AdvReac Type Severity Reaction Status Date / Time metoprolol [From Lopressor] Allergy Intermediate Shortness Verified 04/28/23 14:08 of breath Penicillins Allergy Rash Verified 04/28/23 14:08 Family History Father Hypertension Grandmother Hypertension Other Alcoholism Liver disease Surgical History History of appendectomy History of cataract extraction History of colon resection History of partial colectomy (~2003) Presence of stent in coronary artery Social History Smoking Status: Never smoker alcohol intake: current alcohol intake frequency: holidays/special occasions only substance use type: does not use caffeine: No what type of physical activity do you participate in: weight training EXAM Physical Exam Const Vital Signs: 06/23/23 11:22 Temperature 98.3 F Temperature Source Temporal Pulse Rate 63 Respiratory Rate 14 Blood Pressure 164/70 H Blood Pressure Mean 101 Pulse Ox 100 Oxygen Delivery Method Room Air MDM MDM MDM Narrative Medical decision making narrative: HISTORY OF PRESENT ILLNESS: 88-year-old male here for hole. States he has bleeding. Denies any pain or injury. He further states he has been wearing adult diapers which chief his groin and scrotal area. States he is use Desitin for barrier cream states this morning his noted bleeding in his adult underwear she looked down and thought she saw a hole in his scrotum. They came to the ED for further evaluation. REVIEW OF SYSTEMS: Pertinent positives: Scrotal pain, bleeding Pertinent negatives: Difficulty urinating PHYSICAL EXAM: Nursing triage notes reviewed, Vital signs reviewed Constitutional: please see mdm Lungs: Clear to auscultation, No wheezing or rales. No increased work of breathing, no conversational dyspnea, no accessory muscle use, no nasal flaring. No respiratory distress noted Heart: Regular rate and rhythm, No murmurs, No rubs and No gallops, 2+ distal pulses (radial, femoral, posterior tibial) in all extremities Abdomen: Soft, there is no tenderness, rigidity, rebound or guarding, no obvious peritoneal signs, no palpable pulsatile abdominal masses, no auscultated abdominal bruit : Irritation and skin abrasion noted to left scrotum. No obvious hole or other laceration or other abnormality requires intervention at this time. Extremities: No edema Skin: Erythema, likely contact dermatitis versus local friction abrasion. No active bleeding noted. MEDICAL DECISION MAKING: Chief Complaint: Scrotal abnormality External records reviewed: Last ED visit in April 2023 for COVID-19 Factors affecting care: Liver disease, primary biliary cirrhosis, hyperlipidemia hypertension, Social determinants of health: elderly History obtained from others: none Consults: none MDM Narrative: Patient was hemodynamically stable, afebrile, nontoxic-appearing. Exam with irritation/scrotal abrasion no obvious hole or laceration. No indication for repair at this time. Recommended the patient keep the area clean stop using barrier cream for 1 to 2 days to ascertain if there is any component of contact dermatitis. If this does not develop he was instructed to begin use barrier cream. Instructed to try to not irritate the area with adult diapers. The patient and/or family, caregivers express understanding. The patient and/or family, caregivers agrees with the plan. Shared decision making: I will have a discussion with the patient and or visitors regarding risk/benefits of further testing or admission. They will be made aware of of the risk/benefits inherent in this decision they will be given the opportunity to voice understanding. Total critical care time today provided was at least 0 minutes. This excludes separately billable procedures. Critical care time (if documented) is secondary to the patient having high probability of clinically significant/life th reatening deterioration in the patient's condition which required my urgent intervention. Impression: 1. Scrotal abrasion 2. History of anticoagulation use Dispo: Discharge Discharge Plan Triage Chief Complaint: Male Pain/Injury ED Provider: [place] Dx/Rx/DC Orders Prescriptions: No Action magnesium oxide [Tobin] 500 mg tablet 1,500 mg PO QHS multivitamin capsule 1 cap PO DAILY Citrucel (sucrose) Powder 1 tbsp PO DAILY PRN (Reason: Constipation) finasteride 5 mg tablet 5 mg PO DAILY Patient Comments: take 1 tablet by mouth once daily cyanocobalamin (vitamin B-12) 1,000 mcg capsule 1,000 mcg PO DAILY cholecalciferol (vitamin D3) 50 mcg (2,000 unit) tablet 50 mcg PO DAILY dorzolamide 2 % drops 1 drp ophthalmic (eye) Patient Comments: instill 1 drop into both eyes twice a day rocklan EACH EYE erythromycin 5 mg/gram (0.5 %) ointment ophthalmic (eye) prednisone 5 mg tablets,dose pack 5 mg PO DIRECTED MDD per dose instructions Qty: 21 0RF Rx Instructions: see taper instructions clobetasol 0.05 % cream 1 applic TOPICAL DAILY PRN (Reason: rash) Qty: 60 2RF albuterol sulfate [Ventolin HFA] 90 mcg/actuation HFA aerosol inhaler 2 puff INHALATION Q4H PRN (Reason: Asthma) Qty: 8.5 2RF aspirin 81 MG tablet 81 mg PO DAILY@0800 travoprost 1 DROP bottle 1 drp EACH EYE QHS cetirizine 10 mg capsule 10 mg PO DAILY PRN (Reason: allergy) acetaminophen 325 MG tablet 650 mg PO Q6H PRN PRN (Reason: Pain Score 1-10/Temp > 100.7 F) 0RF netarsudil 0.02 % drops 1 drp ophthalmic (eye) DAILY (DME) Disability Placard See Rx Instructions .Route .MEDSUPPLY Qty: 1 0RF Rx Instructions: Expires 12/01/2026 Arthritis Compound 1 click TOPICAL DAILY PRN (Reason: Pain) Qty: 60 1RF Rx Instructions: Diclofenac 3%, Lidocaine 3%, Baclofen 2% 1 click=o.25g 1 click topical daily 60 click tube ferrous sulfate 325 mg (65 mg iron) tablet 325 mg PO QODAY Qty: 90 2RF atorvastatin 20 mg tablet 20 mg PO QHS Qty: 90 3RF nitroglycerin 0.4 mg tablet, sublingual 0.4 mg SUBLINGUAL Q5-15M PRN (Reason: chest pain) Qty: 25 3RF ursodiol 500 mg tablet 500 mg PO BIDCM Qty: 180 3RF famotidine 20 mg tablet 20 mg PO DAILY Qty: 90 3RF ezetimibe 10 mg tablet 10 mg PO DAILY Qty: 90 3RF Eliquis 5 mg tablet 5 mg PO BID Qty: 60 11RF (DME) nebulizer and compressor [Portable Nebulizer System] Device See Rx Instructions .Route Qty: 1 0RF Rx Instructions: As directed budesonide-formoterol [Symbicort] 160-4.5 mcg/actuation HFA aerosol inhaler 2 puff inhalation DAILY Qty: 3 3RF Rx Instructions: administer with spacer, rinse mouth after each use albuterol sulfate 2.5 mg /3 mL (0.083 %) solution for nebulization 2.5 mg inhalation Q4H PRN (Reason: shortness of breath or wheezing) Qty: 90 4RF Primary Care Provider: Addi Mario Referrals: Addi Mario MD [Primary Care Provider] -
== END 2023-06-23 12:27 | disposition home or self-care (01) ==
LOC: ED 12:18
PROVIDERS: Emergency Provider Emergency Medicine; PCP Internal Medicine; Visit Provider Emergency Medicine
DX: S30.813A Abrasion of scrotum and testes, initial encounter (principal); K74.3 Primary biliary cirrhosis; I25.10 Atherosclerotic heart disease of native coronary artery without angina pectoris; Z95.5 Presence of coronary angioplasty implant and graft; X58.XXXA Exposure to other specified factors, initial encounter
CPT/HCPCS: 99282

== ENCOUNTER → 2023-08-15 | Outpatient (CLI) | payer MEDICARE, SELFPAY ==
[2023-08-15 16:27] LABS: Absolute Lymphocyte Count 1.89 X10^3/uL (0.83-4.51); Absolute Neutrophil Count 4.6 X10^3/uL (2.0-7.7); Basophil# 0.03 X10^3/uL; Basophil% 0.4 % (0-1); Eosinophil# 0.11 X10^3/uL; Eosinophils% 1.5 % (0-5); Hematocrit 39.1 % (40-54); Hemoglobin 12.1 g/dL (13.0-16.5); Lymphocyte # 1.89 X10^3/ul (0.83-4.51); Lymphocyte % 25.5 % (19-41); Mean Corp Hgb Conc 30.9 g/dL (32-36); Mean Corpuscular Hgb 30.6 pg (27.0-32.0); Mean Corpuscular Volume 98.7 fL (80-94); Monocyte# 0.76 X10^3/uL; Monocyte% 10.3 % (0-10); NRBC Flagged by Analyzer 0 % (0-5); Neutrophil # 4.59 X10^3/uL (2.7-7.7); Platelet Count 158 K/mm3 (150-450); RBC Distribution Width CV 15.8 % (11.6-14.6); RBC Distribution Width SD 57.6 fl (35.1-43.9); Red Blood Count 3.96 M/mm3 (4.6-6.2); White Blood Count 7.4 K/mm3 (4.4-11.0)
[2023-08-15 16:39] LABS: ALB/GLOB Ratio 0.7 RATIO (0.9-2.4); AST(SGOT) 27 U/L (15-37); Alanine Aminotransfer ALT/SGPT 24 U/L (16-61); Alkaline Phosphatase 80 U/L (45-117); Anion Gap 4 (5-15); BUN 13 mg/dL (7-18); BUN/Creat Ratio 15.1 RATIO (10-20); Chloride 104 mmol/L (98-107); Creatinine, Serum 0.86 mg/dL (0.70-1.30); EST Glomerular Filtration Rate 90 mL/min (>60); Est Glom Filt Rate - Afr Amer 108 mL/min (>60); Globulin 4.4 g/dL (2.2-4.2); Glucose 107 mg/dL (74-106); Potassium 4.4 mmol/L (3.5-5.1); Protein, Total 7.4 g/dL (6.4-8.2); Sodium Level 141 mmol/L (136-145)
== END | disposition home or self-care (01) ==
LOC: BIMLAB 15:09
PROVIDERS: PCP Internal Medicine; Visit Provider Internal Medicine
DX: I10 Essential (primary) hypertension (principal)
CPT/HCPCS: 36415; 80053; 85025

== ENCOUNTER → 2023-10-17 | Outpatient (CLI) | payer MEDICARE, SELFPAY ==
--- OUTSIDE RECORDS SUMMARY | 2023-10-17 09:40 | XMS RPT_ITS | CCD ---
Author Name Unknown Address [facility] [address] [place] [address] Organization [facility] Care Team Providers Care Lead Generation Specialist Name Role Phone Nan FREDERICK, Nagapradeep Unavailable Desmond FREDERICK, Ziyad Chang Primary Care Provider PHOEBE TEJEDA Attending Unavailable ZIYAD LOGAN Primary Care Unavailable SHAWN SHEA Attending Unavailable ZIYAD LOGAN Primary Care Unavailable SHAWN SHEA Attending Unavailable ZIYAD LOGAN Primary Care Unavailable Allergies Allergy Classification Reported Allergen(s) Allergy Type Date of Onset Reaction(s) Facility (5 sources) amLODIPine; 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: [AMLODIPINE] Drug Allergy 6 Other: See Comments [facility] (5 sources) atorvastatin; 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: [ATORVASTATIN CALCIUM] Drug Allergy 1 Intolerance [facility] (5 sources) Mold Extract; 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: [MOLD] Drug Allergy 7 [facility] (5 sources) Penicillins; 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: [PENICILLINS] Drug Intolerance 0 Hives [facility] Work Phone: (4 sources) long haired dogs and cats [Other] Propensity to adverse reactions 7 [facility] (1 source) Adrenergic Beta-Antagonist s; 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: [BETA-BLOCKERS (BETA-ADRENERGI C BLOCKING AGTS)] Propensity to adverse reactions to drug (disorder) 0 [facility] (1 source) OTHER; 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: [OTHER] Propensity to adverse reactions (disorder) 7 [facility] Medications Current Medications Medication Drug Class(es) Dates Sig (Normalized) Sig (Original) benoxinate hydrochloride 4 mg/ml / fluorescein sodium 2.5 mg/ml ophthalmic solution (1 source) Diagnostic Dye Start: 07-04-2023 End: 07-05-2023 fluorescein-benoxin ate 0.25-0.4 % 1 Drop (FLURESS) proparacaine hydrochloride 5 mg/ml ophthalmic solution (1 source) Local Anesthetic Start: 07-04-2023 End: 07-05-2023 proparacaine 0.5 % 1 Drop (ALCAINE) Completed/Discontinued Medications Medication Drug Class(es) Dates Sig (Normalized) Sig (Original) [id number] 200 actuat albuterol 0.09 mg/actuat metered dose inhaler (4 sources) beta2-Adrenergic Agonist Start: 11-12-2016 take 2 puff(s) by inhalation every four hours as needed for wheezing albuterol HFA (PROAIR HFA) 90 mcg/actuation inhaler Inhale 2 Puffs as instructed every 4 hours as needed for Wheezing/Shortnes s of Breath. 1 g 3 11/12/2016 Active Problems Active Problems Problem Classification Problem Date Documented Da te Episodic/Chronic Asthma (4 sources) Asthma; 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: [Unspecified asthma, uncomplicated] Onset: 11-21-2006 11-02-2016 Chronic Coronary atherosclerosis and other heart disease (4 sources) Coronary atherosclerosis; 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: [Atherosclerotic heart disease of [place] coronary artery without angina pectoris] Onset: 08-25-2012 11-22-2016 Chronic Deficiency and other anemia (4 sources) Iron deficiency anemia due to blood loss; 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: [Iron deficiency anemia secondary to blood loss (chronic)] Onset: 12-23-2015 12-23-2015 Chronic Disorders of lipid metabolism (4 sources) Mixed hyperlipidemia; 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: [Mixed hyperlipidemia] Onset: 11-21-2006 08-26-2015 Chronic Essential hypertension (4 sources) Essential hypertension; 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: [Essential (primary) hypertension] Onset: 11-21-2006 11-22-2016 Chronic Glaucoma (7 sources) Glaucoma; 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: [Unspecified glaucoma] Onset: 01-28-2010 11-02-2016 Chronic Hyperplasia of prostate (4 sources) Benign prostatic hypertrophy with outflow obstruction; 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: [Benign prostatic hyperplasia with lower urinary tract symptoms] Onset: 11-21-2006 11-02-2016 Chronic Inflammation; infection of eye (except that caused by tuberculosis or sexually transmitteddisease) (2 sources) Squamous blepharitis right eye, upper and lower eyelids; 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: [Squamous blepharitis left eye, upper and lower eyelids] Onset: 09-06-2023 Episodic Osteoarthritis (4 sources) Degenerative joint disease involving multiple joints; 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: [Polyosteoarthritis , unspecified] Onset: 11-21-2006 11-21-2006 Chronic Other eye disorders (1 source) Bilateral eye band keratopathy; 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, bilateral] 06-01-2023 Episodic Other eye disorders (1 source) Conjunctival hemorrhage, left eye; 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: [Subconjunctival hemorrhage of left eye] Onset: 09-06-2023 Episodic Other eye disorders (1 source) Band keratopathy, bilateral; 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, bilateral] Onset: 09-06-2023 Episodic Other gastrointestinal disorders (4 sources) Chronic idiopathic constipation; 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: [Chronic idiopathic constipation] Onset: 11-02-2016 11-02-2016 Chronic Other inflammatory condition of skin (4 sources) Rosacea; 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: [Rosacea, unspecified] Onset: 06-14-2008 08-30-2008 Chronic Other liver diseases (4 sources) Primary biliary cholangitis; 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] Onset: 10-27-2010 11-02-2016 Chronic Retinal detachments; defects; vascular occlusion; and retinopathy (2 sources) Epiretinal membrane of left eye; 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: [Puckering of macula, left eye] Onset: 09-06-2023 06-01-2023 Chronic Past or Other Problems Problem Classification Problem Date Documented Da te Episodic/Chronic Allergic reactions (4 sources) Contact dermatitis; 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: [Unspecified contact dermatitis, unspecified cause] Onset: 06-14-2008 11-02-2016 Episodic Cardiac dysrhythmias (4 sources) Bradycardia; 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: [Bradycardia, unspecified] Onset: 08-25-2012 11-22-2016 Episodic Conditions associated with dizziness or vertigo (4 sources) Dizziness and giddiness; 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: [Dizziness and giddiness] Onset: 06-10-2008 06-10-2008 Episodic Other and unspecified benign neoplasm (4 sources) Dysplasia of colon; 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: [Polyp of colon] Onset: 11-21-2006 11-02-2016 Episodic Other inflammatory condition of skin (4 sources) Seborrheic dermatitis; 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: [Other seborrheic dermatitis] Onset: 06-14-2008 08-30-2008 Episodic Spondylosis; intervertebral disc disorders; other back problems (4 sources) Chronic low back pain; 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: [Lumbago with sciatica, unspecified side] Onset: 12-23-2015 12-23-2015 Episodic Results Test Name Value Interpretation Reference Range Facil ity Encounters Encounter Date Encounter Type Care Provider Facility Start: 09-06-2023 End: 09-07-2023 ambulatory PHOEBE TEJEDA Facility:[facility] Start: 09-02-2023 Telephone encounter Shawn Shea MD Work Phone: Ophthalmology Start: 07-04-2023 End: 07-04-2023 ambulatory SHAWN SHEA Facility:[facility] Start: 07-04-2023 End: 07-04-2023 Patient encounter procedure Shawn Shea MD Work Phone: Ophthalmology Procedures Date Procedure Procedure Detail Performing Clinician Start: 07-04-2023 Visual field xm uni/ bi w/interp extended exam Shawn Shea MD Work Phone: Start: 06-01-2023 Computerized ophthal jacoby imaging optic nerve Shawn Shea MD Work Phone: Plan of Treatment Date Care Activity Detail Author Start: 06-06-2030 Urine microalbumin profile DTaP,Tdap,Td Vaccine (2 - Td or Tdap) [facility] Start: 06-15-2024 End: 11-22-2024 PACHYMETRY OU (BOTH EYES) PACHYMETRY OU (BOTH EYES) OPHT Imaging Routine Primary open angle glaucoma (POAG) of both eyes, severe stage Expected: 06/15/2024, Expires: 11/22/2024 [facility] Work Phone: Immunizations Immunization Date Immunization Notes Care Provider Fa dayty 05-25-2022 influenza virus vacc ine, unspecified formulation Shawn Shea MD Work Phone: [facility] 07-28-2019 zoster vaccine recombinant Tristan Montana MD Work Phone: [facility] 07-13-2016 influenza, high dose seasonal, preservative-free Tristan Montana MD Work Phone: [facility] 06-10-2015 influenza, high dose seasonal, preservative-free Tristan Montana MD Work Phone: [facility] 09-27-2014 pneumococcal conjuga te vaccine, 13 valent Tristan Montana MD Work Phone: [facility] 07-24-2014 influenza, seasonal, injectable Tristan Montana MD Work Phone: [facility] 06-13-2013 influenza virus vacc ine, unspecified formulation Tristan Montana MD Work Phone: [facility] 06-13-2012 influenza virus vacc ine, unspecified formulation Tristan Montana MD Work Phone: [facility] 07-21-2010 zoster vaccine, live Maria Guadalupe Montana MD Work Phone: [facility] 08-23-2007 pneumococcal polysaccharide vaccine, 23 valent Tristan Montana MD Work Phone: [facility] 05-24-2007 tetanus and diphther ia toxoids, adsorbed, preservative free, for adult use (2 Lf of tetanus toxoid and 2 Lf of diphtheria toxoid) Tristan Montana MD Work Phone: [facility] 09-19-2001 pneumococcal polysaccharide vaccine, 23 valent Tristan Montana MD Work Phone: [facility] Payers Date Payer Category Payer Unknown PRIMETIME PRIMET BESSIE HMO POS [id number] 2014-Present [phone] [address] [place] [address] [facility] [employer] [id number] 2014 Unknown [id number] Social History Date Type Detail Facility Start: 11-02-2016 Tobacco smoking stat [facility] Never smoked tobacco [facility] Work Phone: Start: 11-02-2016 Tobacco use and exposure Smokeless tobacco non-user [facility] Work Phone: Start: 11-22-2016 End: 07-04-2023 Alcohol intake Current drinker of alcohol (finding) [facility] Start: 11-02-2016 Alcohol Comment rare [facility] Start: 1935 Sex Assigned At Not on file [facility] Start: 06-01-2023 End: 07-04-2023 History of Social function [facility] Start: 06-01-2023 End: 07-04-2023 Tobacco use panel [facility] National Score (1-100), lower number is lower risk 67 [facility] Clinical Notes 12-23-2015 to 09-06-2023 Telephone Encounter - Xenia Guillen - 09/02/2023 4:45 PM ESTTelephone Encounter - Xenia Guillen - 09/02/2023 2:59 PM ESTTelephone Encounter - Xenia Guillen - 09/02/2023 2:18 PM EST Note Date & Type Note Facility 09-06-2023 Note HNO ID: [id number] Author: Phoebe Tejeda OD Service: ? Author Type: POULTRY EVISCERATOR Type: Progress Notes Filed: 09/06/2023 9:14 AM Note Text: 1. Subconjunctival hemorrhage of left eye Educated pt on self-resolving condition which can be worsening on Eliquis Recommend artificial tears as needed for comfort 2. Squamous blepharitis of upper and lower eyelids of both eyes Recommend warm compresses and lid scrubs daily as well as gel nightly and artificial tears daily 3. Primary open angle glaucoma (POAG) of both eyes, severe stage 4. Epiretinal membrane (ERM) of left eye 5. Band keratopathy, bilateral Continue follow-up with Dr. Shea as scheduled Follow-up with me as needed Phoebe Tejeda, OD September 06, 2023 9:12 AM [facility] 09-02-2023 Miscellaneous Notes Email from Shawn Mcguire Melissa Subconjunctival hemorrhage is benign. It s a bruise in the whites of the eye. If no vision change, it s ok. Can use refresh artificial tears for irritation Called pt and passed on messaged He will keep his appt with Dr. Tejeda Spoke to pt again, explained about appt with Dr. Tejeda. Asked about new symptoms, eye feels a bit irritated, and light sensitivity is only when he was outside in the sunlight not in the house. He was concerned about waiting until Tuesdays, but he did not want to drive to main campus. Explained he could go to [facility] or Emergency Room if he felt he needed to . Pt called back with new symptoms, eye is irritated and sensitive to the light outside. Spoke with Zaida, second floor appt desk found appt in [place] for him on 09-06. Images from the original note were not included. Pt photo Left eye, appears to have blood in in coming from the pupil going down. Has not affected vision. No pain. Had slight headache last night. No other symptoms Fv 11-07-23 Assessment & Plan Shawn Shea MD filed at 07/04/2023 2:28 PM Status: Signed New from [place] Tmax: <22; Pachy: -, - Lasers and Surgeries: OD: CEIOL OS: 11/2022 Selected laser trabeculoplasty (SLT) Selected laser trabeculoplasty (SLT) previous yrs CEIOL Ocular Medication Intol and Non-efficacy: Bradycardia = BB Now on alphagan 2/2, rocklatan 09/19 -HVF 06/2023 OD [place] OS sparing sup arc -OCT 05/2023 OD diffuse thinning, av 53 OS diffuse thinning, av 54 # Primary open angle glaucoma (POAG) severe both eyes - low/mid teens both eyes on 3 agents both eyes - baseline visual field today with severe loss - goal low teens - follow 4 months, intraocular pressure # Pseudophakia both eyes - stable # Epiretinal membrane left eye - per outside records # band K both eyes - stable documented in this encounter [facility] 07-04-2023 Note HNO ID: [id number] Author: Shawn Shea MD Service: ? Author Type: Physician Type: Progress Notes Filed: 07/04/2023 2:28 PM Note Text: New from Tmax: <22; Pachy: -, - Lasers and Surgeries: OD: CEIOL OS: 11/2022 Selected laser trabeculoplasty (SLT) Selected laser trabeculoplasty (SLT) previous yrs CEIOL Ocular Medication Intol and Non-efficacy: Bradycardia = BB Now on alphagan 2/2, rocklatan 1/ -HVF 06/2023 OD [place] OS sparing sup arc -OCT 05/2023 OD diffuse thinning, av 53 OS diffuse thinning, av 54 # Primary open angle glaucoma (POAG) severe both eyes - low/mid teens both eyes on 3 agents both eyes - baseline visual field today with severe loss - goal low teens - follow 4 months, intraocular pressure # Pseudophakia both eyes - stable # Epiretinal membrane left eye - per outside records # band K both eyes - stable I have confirmed and edited as necessary the relevant ophthalmic history, ROS, and the neuro exam findings as obtained by others. I have seen and examined Jessee Oquendodudley. I have discussed the case and the management of this patient's care with the Resident/Fellow, if applicable. I also have reviewed and agree with the assessment and plan as stated above and agree with all of its relevant components. Shawn Shea MD [facility] 07-04-2023 History of Presen t illness Narrative New from Tmax: <22; Pachy: -, - Lasers and Surgeries: OD: CEIOL OS: 11/2022 Selected laser trabeculoplasty (SLT) Selected laser trabeculoplasty (SLT) previous yrs CEIOL Ocular Medication Intol and Non-efficacy: Bradycardia = BB Now on alphagan 2/2, rocklatan 1/1 -HVF 06/2023 OD [place] OS sparing sup arc -OCT 05/2023 OD diffuse thinning, av 53 OS diffuse thinning, av 54 # Primary open angle glaucoma (POAG) severe both eyes - low/mid teens both eyes on 3 agents both eyes - baseline visual field today with severe loss - goal low teens - follow 4 months, intraocular pressure # Pseudophakia both eyes - stable # Epiretinal membrane left eye - per outside records # band K both eyes - stable I have confirmed and edited as necessary the relevant ophthalmic history, ROS, and the neuro exam findings as obtained by others. I have seen and examined Jesseelori Rust. I have discussed the case and the management of this patient's care with the Resident/Fellow, if applicable. I also have reviewed and agree with the assessment and plan as stated above and agree with all of its relevant components. Shawn Shea MD documented in this encounter [facility] 06-01-2023 Note HNO ID: [id number] Author: Shawn Shea MD Service: ? Author Type: Physician Type: Progress Notes Filed: 06/01/2023 2:22 PM Note Text: New from [place] Tmax: <22; Pachy: -, - Lasers and Surgeries: OD: CEIOL OS: 11/2022 Selected laser trabeculoplasty (SLT) Selected laser trabeculoplasty (SLT) previous yrs CEIOL Ocular Medication Intol and Non-efficacy: Bradycardia = BB Now on alphagan 2/2, rocklatan 09/19 -HVF - OD OS -OCT 05/2023 OD diffuse thinning, av 53 OS diffuse thinning, av 54 # Primary open angle glaucoma (POAG) severe both eyes - low/mid teens both eyes on 3 agents both eyes - baseline OCT retinal nerve fiber layer today - follow 1 month, baseline visual field to establish intraocular pressure goal, pachy # Pseudophakia both eyes - stable # Epiretinal membrane left eye - per outside records # band K both eyes - stable I have confirmed and edited as necessary the relevant ophthalmic history, ROS, and the neuro exam findings as obtained by others. I have seen and examined Jessee Elza Azradudley. I have discussed the case and the management of this patient's care with the Resident/Fellow, if applicable. I also have reviewed and agree with the assessment and plan as stated above and agree with all of its relevant components. Shawn Shea MD [facility] 06-01-2023 History of Presen t illness Narrative New from [place] Tmax: <22; Pachy: -, - Lasers and Surgeries: OD: CEIOL OS: 11/2022 Selected laser trabeculoplasty (SLT) Selected laser trabeculoplasty (SLT) previous yrs CEIOL Ocular Medication Intol and Non-efficacy: Bradycardia = BB Now on alphagan 2/2, rocklatan 09/19 -HVF - OD OS -OCT 05/2023 OD diffuse thinning, av 53 OS diffuse thinning, av 54 # Primary open angle glaucoma (POAG) severe both eyes - low/mid teens both eyes on 3 agents both eyes - baseline OCT retinal nerve fiber layer today - follow 1 month, baseline visual field to establish intraocular pressure goal, pachy # Pseudophakia both eyes - stable # Epiretinal membrane left eye - per outside records # band K both eyes - stable I have confirmed and edited as necessary the relevant ophthalmic history, ROS, and the neuro exam findings as obtained by others. I have seen and examined Jessee Rust. I have discussed the case and the management of this patient's care with the Resident/Fellow, if applicable. I also have reviewed and agree with the assessment and plan as stated above and agree with all of its relevant components. Sahwn Shea MD documented in this encounter [facility] documented as of this encounter (statuses as of 07/12/2022) [facility]04-[facility]2016 History of Past illness Narrative* Problem Noted Date Diagnosed Date Resolved Date Gastrointestinal hemorrhage 12/23/2015 11/02/2016 DDD (degenerative disc disease), cervical 06/13/2013 11/02/2016 S/P coronary artery stent placement 01/07/2013 11/02/2016 ASHD (arteriosclerotic heart disease) 08/26/2010 11/02/2016 Plantar fascial fibromatosis 04/11/2009 11/02/2016 Calculus of gallbladder with out mention of cholecystitis or obstruction 12/10/2008 11/02/2016 Calculus of kidney 12/10/2008 7 LIVER NODULE 12/10/2008 11/02/2016 Overview: CT November 2008 Other seborrheic keratosis 10/18/2008 0 11/02/2016 Other atopic dermatitis and related conditions 06/14/2008 11/02/2016 Other chronic dermatitis due to solar radiation 06/14/2008 11/02/2016 Flushing 06/14/2008 11/02/2016 Other and unspecified capillary diseases 06/14/2008 11/02/2016 Seborrheic dermatitis, unspecified 06/14/2008 11/02/2016 HYPERGLYCEMIA 06/07/2008 11/02/2016 Cervicalgia 04/13/2007 11/02/2016 Abnormality of gait 02/21/2007 11/02/19 17 OVERWEIGHT 11/21/2006 11/02/2016 Biliary cirrhosis 11/21/2006 08/26/2010 Overview: Dr. Vo Cough 11/21/2006 12/16/2015 Elevated prostate specific antigen (PSA) 11/21/2006 11/02/2016 Overview: Follows with Dr. Maurice SNORING 11/21/2006 06/22/2016 PULMONARY NODULE 11/21/2006 11/02/2016 Overview: Dr. Denzel Powell, Pulmonary. Personal history of colonic polyps 11/21/2006 11/02/2016 Overview: Colonoscopy 06/11/10 Repeat in 2[address] Dr. Lai Grant MD. Hx rt colon resection for large villous adenoma w/high grade dysplagia. 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 11/02/2016 Calculus of gallbladder with out mention of cholecystitis or obstruction 12/10/2008 11/02/2016 Calculus of kidney 12/10/2008 7 LIVER NODULE 12/10/2008 11/02/2016 Overview: CT November 2008 Other seborrheic keratosis 10/18/2008 0 11/02/2016 Other atopic dermatitis and related conditions 06/14/2008 11/02/2016 Other chronic dermatitis due to solar radiation 06/14/2008 11/02/2016 Flushing 06/14/2008 11/02/2016 Other and unspecified capillary diseases 06/14/2008 11/02/2016 Seborrheic dermatitis, unspecified 06/14/2008 11/02/2016 HYPERGLYCEMIA 06/07/2008 11/02/2016 Cervicalgia 04/13/2007 11/02/2016 Abnormality of gait 02/21/2007 11/02/19 17 OVERWEIGHT 11/21/2006 11/02/2016 Biliary cirrhosis 11/21/2006 08/26/2010 Overview: Dr. Vo Cough 11/21/2006 12/16/2015 Elevated prostate specific antigen (PSA) 11/21/2006 11/02/2016 Overview: Follows with Dr. Maurice SNORING 11/21/2006 06/22/2016 PULMONARY NODULE 11/21/2006 11/02/2016 Overview: Dr. Denzel Powell, Pulmonary. Personal history of colonic polyps 11/21/2006 11/02/2016 Overview: Colonoscopy 06/11/10 Repeat in 2[address] Dr[address] Lai Grant MD. Hx rt colon resection for large villous adenoma w/high grade dysplagia. 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 11/02/2016 Calculus of gallbladder with out mention of cholecystitis or obstruction 12/10/2008 11/02/2016 Calculus of kidney 12/10/2008 7 LIVER NODULE 12/10/2008 11/02/2016 Overview: CT November 2008 Other seborrheic keratosis 10/18/2008 0 11/02/2016 Other atopic dermatitis and related conditions 06/14/2008 11/02/2016 Other chronic dermatitis due to solar radiation 06/14/2008 11/02/2016 Flushing 06/14/2008 11/02/2016 Other and unspecified capillary diseases 06/14/2008 11/02/2016 Seborrheic dermatitis, unspecified 06/14/2008 11/02/2016 HYPERGLYCEMIA 06/07/2008 11/02/2016 Cervicalgia 04/13/2007 11/02/2016 Abnormality of gait 02/21/2007 11/02/19 17 OVERWEIGHT 11/21/2006 11/02/2016 Biliary cirrhosis 11/21/2006 08/26/2010 Overview: Dr. Vo Cough 11/21/2006 12/16/2015 Elevated prostate specific antigen (PSA) 11/21/2006 11/02/2016 Overview: Follows with Dr. Maurice SNORING 11/21/2006 06/22/2016 PULMONARY NODULE 11/21/2006 11/02/2016 Overview: Dr. Denzel Powell, Pulmonary. Personal history of colonic polyps 11/21/2006 11/02/2016 Overview: Colonoscopy 06/11/10 Repeat [place] [address] Lai Grant MD. Hx rt colon resection for large villous adenoma w/high grade dysplagia. Other psoriasis 11/21/2006 11/02/2016 documented as of this encounter (statuses as of 09/03/2023) [facility] Primary open angle glaucoma (POAG) of both eyes, severe stage- Primary Epiretinal membrane (ERM) of left eye Band keratopathy, bilateral [facility] Primary open angle glaucoma (POAG) of both eyes, severe stage documented in this encounter [facility] Advance Directives No Advanced Directives Records FoundDocuments on File Type Date Recorded Patient Foreign Collection Clerk Expl anation Advance Directive(s) 01/15/2016 12:48 PM Summary Purpose Family History No Family History Records Found Additional Source Comments Source Comments (unrecognize d section and content) In the event this informatio n is protected by the Federal Confidentiality of Alcohol and Drug Abuse Patient Records regulations: The Federal rules restrict any use of the information to criminally investigate or prosecute any alcohol or drug abuse patient.[facility] the event this information is protected by the Federal Confidentiality of Alcohol and Drug Abuse Patient Records regulations: The Federal rules restrict any use of the information to criminally investigate or prosecute any alcohol or drug abuse patient.[facility] the event this information is protected by the Federal Confidentiality of Alcohol and Drug Abuse Patient Records regulations: The Federal rules restrict any use of the information to criminally investigate or prosecute any alcohol or drug abuse patient.[facility] the event this information is protected by the Federal Confidentiality of Alcohol and Drug Abuse Patient Records regulations: The Federal rules restrict any use of the information to criminally investigate or prosecute any alcohol or drug abuse patient.[facility] Reason for Visit (unrecogniz ed section and content) Reason Comments New Reason Comments Primary Open Angle Glaucoma Follow Up Care Teams (unrecognized sec tion and content) Lead Generation Specialist Relationship Specialty Start Date End Date Ziyad Logan MD [address] [place], [place] [id number] PCP - General Family Medicine 12/08/18 Tristan Montana MD Specialty Rn Transitional Care Cardiology 07/15/16 Lead Generation Specialist Relationship Specialty Start Date End Date Ziyad Logan MD [address] [place], [place] [id number] PCP - General Family Medicine 12/08/18 Tristan Montana MD Specialty Rn Transitional Care Cardiology 07/15/16 Lead Generation Specialist Relationship Specialty Start Date End Date Ziyad Logan MD [address] [place] [address] PCP - General Family Medicine 12/08/18 Tristan Montana MD Specialty Rn Transitional Care Cardiology 07/15/16 (unrecognized sect ion and content) No Status Records Found INFORMATION SOURCE (unrecogn ized section and content) FOR RECORDS PERTAINING TO PATIENTS WHO ARE OR HAVE BEEN ENROLLED IN A CHEMICAL DEPENDENCY/SUBSTANCEABUSE PROGRAM, SOME INFORMATION MAY BE OMITTED. This clinical summary was aggregated from multiple sources. Caution should be exercised in using it in the provision of clinical care. This summary normalizes information from multiple sources, and as a consequence, information in this document may materially change the coding, format and clinical context of patient data. In addition, data may be omitted in some cases. CLINICAL DECISIONS SHOULD BE BASED ON THE PRIMARY CLINICAL RECORDS. [facility] [employer] [facility]. provides no warranty or guarantee of the accuracy or completeness of information in this document.
== END | disposition home or self-care (01) ==
LOC: PSN 09:05
PROVIDERS: PCP Internal Medicine; Referring Provider Internal Medicine Cardiovascular Disease; Visit Provider Internal Medicine Cardiovascular Disease
DX: R00.1 Bradycardia, unspecified (principal)
CPT/HCPCS: 93225; 93226

== ENCOUNTER 2023-12-02 12:27 | Inpatient (IN) | payer MEDICARE, SELFPAY ==
[2023-12-02] VITALS (7 sets, daily range): BP systolic 98–133; BP diastolic 54–83; PULSE 60–92; RESP 18–26; TEMP 36.2–39.5; O2SAT 92–95; BMI 31.7; BMI 31.2
--- NOTE | 2023-12-02 13:11 | EX.ED.DYSGE1 ---
HPI History of Present Illness Chief Complaint: Flank Pain Informant: patient Onset/Context/Timing Onset: Yesterday Context: Gradual Onset Timing: Continuous Quality: Aching, and tightness Location: Low back and chest Worsened by: Nothing Relieved by: Tylenol, nitroglycerin Narrative Narrative: Patient presents with back pain and chest pain that began yesterday. Patient describes the pain is aching in his low back. Patient describes his chest pain as a tight band around his chest. Patient states he took nitroglycerin which seemed to help with his chest pain. Patient states he also took Tylenol which helped with his back pain. Patient states nothing makes his pain worse. Patient admits to some chills. Patient admits to some cough and shortness of breath. Patient denies any nausea or vomiting. Patient denies any bowel or bladder changes. Patient denies any saddle anesthesia. [facility] Medical History Advanced directives, counseling/discussion Anemia Anginal equivalent Aortic stenosis Asthma Atherosclerosis of coronary artery of [place] heart without angina pectoris BPH (benign prostatic hyperplasia) Bradycardia Cholelithiasis without obstruction Closed vertical fracture of left patella Degenerative disc disease, cervical Dermatitis Dizziness Essential hypertension Extensor tenosynovitis of right wrist Fall Fracture of triquetrum of left wrist Fracture of triquetrum of right wrist Glaucoma History of colon polyps History of pneumonia History of skin cancer Hyperlipidemia Hyponatremia Iron deficiency anemia Left facial swelling Liver disease Memory impairment Multiple fractures New onset atrial fibrillation Nonrheumatic aortic valve stenosis Obesity Orthostatic hypotension Osteoarthritis Paroxysmal atrial fibrillation Physical debility Primary biliary cirrhosis Psoriasis Restrictive airway disease Rheumatoid arthritis Right foot pain Seasonal allergies Sinus bradycardia Thrombocytopenia Vitamin D deficiency Home Medications aspirin 81 mg tablet,delayed release 81 mg PO DAILY@0800 [facility] 12/06/16 [History Last Taken 12/02/23] travoprost 0.004 % eye drops 1 drp EACH EYE QHS glaucoma 06/02/19 [History Last Taken 06/06/20] magnesium oxide (Tobin) 1,500 mg PO QHS 08/05/20 [History Last Taken 12/01/23] cholecalciferol (vitamin D3) 50 mcg (2,000 unit) tablet 50 mcg PO DAILY 11/19/20 [History Last Taken 12/01/23] cyanocobalamin (vitamin B-12) 1,000 mcg capsule 1,000 mcg PO DAILY 11/19/20 [History Last Taken 12/01/23] Disability Placard #1 ea 12/01/21 [Rx Last Taken Unknown] Arthritis Compound 1 click topical DAILY PRN Pain #60 CLICKS 02/08/22 [Rx Last Taken Unknown] cetirizine 10 mg capsule 10 mg PO DAILY PRN allergy 10/05/22 [History Last Taken 12/01/23] apixaban 5 mg tablet (Eliquis) 5 mg PO BID #60 tabs 12/08/22 [Rx Last Taken 12/02/23] albuterol sulfate 90 mcg/actuation aerosol inhaler (Ventolin HFA) 2 puff inhalation Q4H PRN Asthma #8.5 grams 04/28/23 [Rx Last Taken Unknown] nebulizer and compressor (Portable Nebulizer System) #1 ea 04/30/23 [Rx Last Taken Unknown] guaifenesin 1,200 mg tablet, extended release 12 hr 1,200 mg PO Q12H #60 tabs 06/29/23 [Rx Last Taken 12/02/23] atorvastatin 20 mg tablet 20 mg PO QHS cholesterol #90 tabs 07/07/23 [Rx Last Taken 12/01/23] ursodiol 500 mg tablet See Rx Instructions .Route .COMPLEX #180 tabs 08/03/23 [Rx Last Taken 12/02/23] famotidine 20 mg tablet 20 mg PO DAILY #90 tabs 08/10/23 [Rx Last Taken 12/02/23] brimonidine 0.1 % eye drops 1 drp ophthalmic (eye) DAILY 08/15/23 [History Last Taken 12/02/23] budesonide-formoterol HFA 160 mcg-4.5 mcg/actuation aerosol inhaler (Symbicort) 2 puff inhalation BID 08/15/23 [History Last Taken 12/02/23] finasteride 5 mg tablet 5 mg PO DAILY #90 tabs 08/18/23 [Rx Last Taken 12/02/23] ezetimibe 10 mg tablet 10 mg PO DAILY heart health #90 tabs 09/15/23 [Rx Last Taken 12/02/23] nitroglycerin 0.4 mg sublingual tablet 0.4 mg sublingual Q5-15M PRN chest pain #25 tabs 09/15/23 [Rx Last Taken Unknown] ferrous sulfate 325 mg (65 mg iron) tablet 325 mg PO QODAY #90 tabs 11/23/23 [Rx Last Taken 12/01/23] uuxlnldl-zao-iiaoi acid 0.4 mg-lycopene 300 mcg-lutein 250 mcg tablet (Centrum Silver) 1 tab PO DAILY 12/02/23 [History Last Taken 12/01/23] netarsudil 0.02 %-latanoprost 0.005 % eye drops (Rocklatan) 1 drp ophthalmic (eye) QHS 12/02/23 [History Last Taken 12/02/23] Allergy/AdvReac Type Severity Reaction Status Date / Time metoprolol [From Lopressor] Allergy Intermediate Shortness Verified 10/20/23 09:49 of breath Penicillins Allergy Rash Verified 10/20/23 09:49 Family History Father Hypertension Grandmother Hypertension Other Alcoholism Liver disease Surgical History History of appendectomy History of cataract extraction History of colon resection History of partial colectomy (~2003) Presence of stent in coronary artery Social History Smoking Status: Never smoker alcohol intake: current alcohol intake frequency: holidays/special occasions only substance use type: does not use caffeine: No what type of physical activity do you participate in: weight training ROS ROS ED Constitutional Constitutional ED: Reports chills; Denies fever(s) Eyes Eyes: Denies blurry vision or change in vision ENT ENT ED: Denies rhinorrhea or sore throat Cardiovascular Cardiovascular: Reports chest pain; Denies palpitations Respiratory/Chest Respiratory/Chest: Reports cough and dyspnea Gastrointestinal Gastrointestinal: Reports constipation; Denies nausea or vomiting Genitourinary Genitourinary ED: Denies dysuria or hematuria Musculoskeletal Musculoskeletal: Reports back pain; Denies neck pain Integumentary Reports rash; Denies abscess Neurologic Neurologic: Denies headache(s) or weakness Allergic/Immunologic Allergic/Immunologic ED: Denies mouth swelling or urticaria EXAM Physical Exam Const Vital Signs: 12/02/23 12:31 Temperature 97.2 F L Temperature Source Temporal Pulse Rate 60 Respiratory Rate 18 Blood Pressure 133/83 H Blood Pressure Mean 99 Pulse Ox 92 Oxygen Delivery Method Room Air Positive well nourished, well developed and obese General Appearance ED: well developed and NAD Nutritional Appearance: obese HEENT Reports moist mucous membranes Neck supple and no JVD Chest Wall inspection of chest normal and palpation of chest normal Resp normal respiratory effort Auscultation: diminished lung sounds Cardio regular rate and regular rhythm GI non-tender and non-distended Palpation: soft Back/Spine no CVA tenderness Neuro oriented x3, CN's II-XII intact bilaterally and no sensory deficits noted Sensorium / Orientation: alert Motor Exam: strength 5/5 throughout Psych mental status grossly normal MDM MDM MDM Narrative Medical decision making narrative: Differential diagnosis includes cardiac dysrhythmia, cardiac ischemia, pneumonia, pneumothorax, sepsis, viral infection, urinary tract infection, and lumbosacral strain. EKG will be obtained to assess for cardiac dysrhythmia and cardiac ischemia. Chest x-ray will be obtained to assess for pneumonia and pneumothorax. Troponin will be obtained to assess for leukocytosis and anemia. Basic metabolic profile will be obtained to assess for electrolyte abnormality and renal function. PT with INR and PTT will be obtained to assess for coagulopathy. Lactate will be obtained to assess for sepsis. Urinalysis will be obtained to assess for urinary tract infection. COVID-19, influenza, and RSV will be obtained to assess for viral infection. Urine culture will be obtained to assess for urinary tract infection. Blood cultures will be obtained to assess for sepsis. Lab Data Attestation: I reviewed the patient's lab results. Lab results narrative: CBC was reviewed. White blood cell count was normal at 8.9. Hemoglobin was slightly low at 12.3 and hematocrit is 39.3. Platelets were slightly low at 125. These are consistent with prior results. PT with INR and PTT were reviewed. Pro time was slightly elevated at 15.1. INR is 1.2. PTT was normal at 34.4. Basic metabolic profile was reviewed. Sodium was slightly low at 134. Glucose was slightly elevated at 134. Remainder is within normal limits. High-sensitivity troponin was reviewed and was elevated at 912. Serum lactate was reviewed and was slightly elevated at 2.1. Arterial blood gas was reviewed. pH was 7.48, bicarb was 24.6, CO2 was 26, pCO2 was 33.1 and pO2 was 62. Oxygen saturation 93% on room air. COVID-19 PCR was reviewed and was negative. Influenza PCR was reviewed and was negative for influenza A and influenza B. RSV PCR was reviewed and was negative. Urinalysis was reviewed. Leukocyte esterase was 100. There were 10-25 white blood cells and 1+ bacteria. Radiography Chest X-Ray - ED: Left Infiltrate Diagnostic Testing: CT scan of the brain was obtained. There is no acute intracranial abnormality. This was interpreted by the radiologist and was also independently reviewed by myself. Portable chest x-ray was obtained. There is 1 view. On my independent interpretation, there is some vascular congestion with increased markings in the left midlung and left lower lobe. Bony thorax is normal. There is mild cardiomegaly noted. Radiologist also interpreted the x-ray and agrees. EKG Initial EKG: Attestation: I personally reviewed and interpreted this EKG as follows: Interpretation: Atrial Fibrillation (95) Comments: EKG was obtained. On my independent interpretation, it shows atrial fibrillation with a rate of 95. QRS interval was normal at 76. QTc interval was normal at 452 ms. [place] was borderline left axis deviation at -25. There are no acute ST or T wave changes noted. Prior EKG tracings: available for review Prior: Unchanged Management Discussion w/another healthcare provider: Hospitalist and Bass [employer] Winder Treatment and Re-Evaluation :: On reevaluation, patient was acting more confused and was not making sense when he was talking. Patient's temperature was noted to be 103.1. Patient was given Tylenol. Because of this, arterial blood gas was added to assess for hypercarbia. CT scan of the brain was obtained to assess for stroke and intracranial bleeding. Patient was given a dose of Tylenol. Patient was started on heparin. Patient was also started on Rocephin and Zithromax. Case was discussed with the hospitalist. Will admit the patient to PCU. Case was also discussed with Dr. Simmons from cardiology. He had no further recommendations. Critical Care Time Critical Care Time: Yes Critical care time (excluding procedures): 30-74 minutes (36), Including time spent:, Discussing w/Patient &/or Family/Certified Endoscopy Technician, Discussing w/Consultants, Arranging Admission or Transfer and Performing Direct Patient Care at Bedside Discharge Plan Triage Chief Complaint: Flank Pain ED Provider: Antonio James Dx/Rx/DC Orders Clinical Impression: Non-STEMI (non-ST elevated myocardial infarction), Urinary tract infection, Sepsis Prescriptions: No Action magnesium oxide [Tobin] 500 mg tablet 1,500 mg PO QHS cyanocobalamin (vitamin B-12) 1,000 mcg capsule 1,000 mcg PO DAILY cholecalciferol (vitamin D3) 50 mcg (2,000 unit) tablet 50 mcg PO DAILY guaifenesin 1,200 mg tablet extended release 12hr 1,200 mg PO Q12H Qty: 60 6RF budesonide-formoterol [Symbicort] 160-4.5 mcg/actuation HFA aerosol inhaler 2 puff inhalation BID Rx Instructions: administer with spacer, rinse mouth after each use brimonidine 0.1 % drops 1 drp ophthalmic (eye) DAILY Rx Instructions: instill 1 drop into both eyes twice a day albuterol sulfate [Ventolin HFA] 90 mcg/actuation HFA aerosol inhaler 2 puff INHALATION Q4H PRN (Reason: Asthma) Qty: 8.5 2RF aspirin 81 MG tablet 81 mg PO DAILY@0800 travoprost 1 DROP bottle 1 drp EACH EYE QHS cetirizine 10 mg capsule 10 mg PO DAILY PRN (Reason: allergy) Centrum Silver 0.4 mg-300 mcg- 250 mcg tablet 1 tab PO DAILY Rocklatan 0.02-0.005 % drops 1 drp ophthalmic (eye) QHS Rx Instructions: INSTILL 1 DROP INTO EACH EYE AT BEDTIME (DME) Disability Placard See Rx Instructions .Route .MEDSUPPLY Qty: 1 0RF Rx Instructions: Expires 12/01/2026 Arthritis Compound 1 click TOPICAL DAILY PRN (Reason: Pain) Qty: 60 1RF Rx Instructions: Diclofenac 3%, Lidocaine 3%, Baclofen 2% 1 click=o.25g 1 click topical daily 60 click tube Eliquis 5 mg tablet 5 mg PO BID Qty: 60 11RF (DME) nebulizer and compressor [Portable Nebulizer System] Device See Rx Instructions .Route Qty: 1 0RF Rx Instructions: As directed atorvastatin 20 mg tablet 20 mg PO QHS Qty: 90 3RF ursodiol 500 mg tablet See Rx Instructions .ROUTE .COMPLEX Qty: 180 3RF Dose Instruction: take 1 tablet by mouth twice a day with meals FOR LIVER DISEASE Rx Instructions: take 1 tablet by mouth twice a day with meals FOR LIVER DISEASE famotidine 20 mg tablet 20 mg PO DAILY Qty: 90 3RF finasteride 5 mg tablet 5 mg PO DAILY Qty: 90 3RF nitroglycerin 0.4 mg tablet, sublingual 0.4 mg SUBLINGUAL Q5-15M PRN (Reason: chest pain) Qty: 25 3RF ezetimibe 10 mg tablet 10 mg PO DAILY Qty: 90 3RF ferrous sulfate 325 mg (65 mg iron) tablet 325 mg PO QODAY Qty: 90 2RF Primary Care Provider: Addi Mario Referrals: Addi Mario MD [Primary Care Provider] - Disposition Disposition: Acute Care Hospital [facility]
--- NOTE | 2023-12-02 13:25 | RAD_ITS ---
STUDY: X-RAY CHEST REASON FOR EXAM: Male, 88 years old. Chest pain . Right lower back pain. TECHNIQUE: Single AP portable view of the chest. COMPARISON: Comparison is made with prior study April 30, 2023. FINDINGS: EKG electrodes are seen. Mild increased markings in the left midlung and left lower lobe. This is superimposed on mild degree of vascular congestion. There is no demonstrated pleural abnormality. There is mild cardiac enlargement. Normal mediastinum and tiara. Normal visualized pulmonary arteries. There is atherosclerotic calcification of the aortic arch with tortuosity. Normal visualized thoracic spine. Normal visualized ribs, clavicles, and shoulders. There is no demonstrated abnormality of the visualized soft tissue structures of the upper abdomen. RAD/Chest 1 View (Portable) IMPRESSION: Mild degree of vascular congestion with mild increased markings in the left midlung and left lower lobe. Electronically Signed: Charbel Aguayo MD at 14:20 EDT ,
[2023-12-02 13:54] LABS: Absolute Lymphocyte Count 1.02 X10^3/uL (0.83-4.51); Absolute Neutrophil Count 7.4 X10^3/uL (2.0-7.7); Basophil# 0.02 X10^3/uL; Basophil% 0.2 % (0-1); Eosinophil# 0.04 X10^3/uL; Eosinophils% 0.5 % (0-5); Hematocrit 39.3 % (40-54); Hemoglobin 12.3 g/dL (13.0-16.5); Lymphocyte # 1.02 X10^3/ul (0.83-4.51); Lymphocyte % 11.5 % (19-41); Mean Corp Hgb Conc 31.3 g/dL (32-36); Mean Corpuscular Hgb 29.8 pg (27.0-32.0); Mean Corpuscular Volume 95.2 fL (80-94); Mean Platelet Vol. 11.4 fl (6.2-12.0); Monocyte# 0.36 X10^3/uL; Monocyte% 4.1 % (0-10); NRBC Flagged by Analyzer 0 % (0-5); Neutrophil # 7.38 X10^3/uL (2.7-7.7); Neutrophil % 83.1 % (47-70); Platelet Count 125 K/mm3 (150-450); RBC Distribution Width SD 52.5 fl (35.1-43.9); Red Blood Count 4.13 M/mm3 (4.6-6.2); White Blood Count 8.9 K/mm3 (4.4-11.0)
[2023-12-02 14:04] LABS: International Normalized Ratio 1.2; Prothrombin Time (Protime)PT. 15.1 SECONDS (11.7-14.9)
[2023-12-02 14:05] LABS: Partial Thromboplast Time 34.4 Seconds (24.1-36.2)
[2023-12-02 14:17] LABS: Anion Gap 5 (5-15); BUN 15 mg/dL (7-18); BUN/Creat Ratio 14.2 RATIO (10-20); Calcium,Total 9.6 mg/dL (8.5-10.1); Chloride 100 mmol/L (98-107); Creatinine, Serum 1.06 mg/dL (0.70-1.30); EST Glomerular Filtration Rate 70 mL/min (>60); Est Glom Filt Rate - Afr Amer 85 mL/min (>60); Estimated Creatinine Clearance 63.01 ml/min; Glucose 134 mg/dL (74-106); Lactic Acid 2.1 mmol/L (0.4-1.9); Potassium 3.8 mmol/L (3.5-5.1); Sodium Level 134 mmol/L (136-145); Troponin-I HS (w/2H Reflex) 912 pg/mL (3.0-78.0)
[2023-12-02 14:42] LABS: Mucous, Urine 0 SEEN /hpf (<or=2+); Squamous Epithelial Cells - UA 0 SEEN /hpf (0-5)
--- NOTE | 2023-12-02 14:42 | CT_ITS ---
STUDY: CT BRAIN WITHOUT CONTRAST REASON FOR EXAM: Male, 88 years old. Altered mental status RADIATION DOSAGE (If Supplied By Facility): CTDIvol = ( 44.99 ) mGy, DLP = ( 829.85 ) mGycm TECHNIQUE: Transaxial CT imaging of the brain was performed without administration of intravenous contrast material. Individualized dose optimization techniques were used for this CT. COMPARISON: Comparison is made with prior study dated June 06, 2020. FINDINGS: Normal soft tissue structures. Normal calvarium. There is mild cerebral atrophy with widening of the extra-axial spaces and ventricular dilatation. There are areas of decreased attenuation within the white matter tracts of the supratentorial brain, consistent with microvascular disease changes. Normal basal ganglia and thalami. Normal brainstem. Normal cerebellum. There is no intracranial hemorrhage. There are no findings of an acute ischemic infarction. Atherosclerotic calcification of the cavernous portions of the internal carotid arteries bilaterally. Normal visualized paranasal sinuses. CT/Brain/Head without Contrast IMPRESSION: Chronic involutional changes of the brain. Electronically Signed: Charbel Aguayo MD at 15:48 EDT ,
--- NOTE | 2023-12-02 14:43 | ED.RN ---
patient was placed on commode with no issues. A few minutes later pt. called out for help, Herlinda MUNIZ went to help pt. off commode and he was very confused, seeing things that were not there. He was not re-directable and needed 3 people to assist him off the commode. Pt. temp was 103.1 as charted. Pt. continues to be confused and hallucinating. Dr. James notified.
[2023-12-02 14:49] LABS: Color, Urine Yellow (Yellow); Glucose, Dipstick Normal (Normal); Ketone-Dipstick Negative (Negative); Leukocyte Esterase-Dipstick 100 /ul (Negative); Nitrite-Dipstick Negative (Negative); Occult Blood-Urine 50 /ul (Negative); Protein-Dipstick 15 mg/dl (Negative); Urine Bilirubin Dipstick Negative (Negative); Urine Clarity Sl. Cloudy (Clear); Urine Urobilinogen Normal (Normal)
[2023-12-02] MEDS: Acetaminophen 500 MG Tablet 1000 MG PO (14:53)
[2023-12-02 15:03] LABS: Bacteria 1+ /hpf (None Seen); Red Blood Cells-Urine 0-5 SEEN /hpf (0-5)
[2023-12-02 15:04] LABS: White Blood Cells 10-25 SEEN /hpf (0-5)
[2023-12-02 15:08] LABS: Allen Test Positive; Base Excess 1 mmol/L (-2 to +2); Bicarbonate 24.6 mmol/L (22-26); Blood Gas Specimen Type ART; Mode Not entered; O2 Delivery Device Room Air; PO2 62 mmHG (75-100); SITE R Radial; SO2 93 % (95-99); Total Carbon Dioxide 26 mmol/L; pCO2 33.1 mmHg (35-45); pH 7.48 (7.35-7.45)
[2023-12-02 15:42] LABS: Reflex Troponin-HS? (from REC) Y
[2023-12-02] MEDS: HEPARIN/D5w 25,000 UNITS 25,000 UNITS/250 ML IV.SOLN. 10 UNITS CONT INF (15:57)
[2023-12-02] MEDS: Ceftriaxone 2 GM in 0.9% Normal Saline (50mL MB+) 50 ML IV (15:57)
[2023-12-02] MEDS: Heparin Injection (Vial) 5,000 UNIT/ML VIAL 4000 UNIT IV (15:57)
[2023-12-02] MEDS: Azithromycin 500 MG in Dextrose 5%-Water (250mL Bag) 250 ML 250 MG IV (16:35)
[2023-12-02 17:06] LABS: Troponin-I HS 829 pg/mL (3.0-78.0)
--- NOTE | 2023-12-02 17:41 | PCM.HP.STD ---
HPI - General General Date of Admission: 12/02/23 HPI Narrative ARNULFO RUST, is a 88 M who presents to the hospital with right-sided flank pain. He is a bit confused as he thinks it is 1922 but he knows where he is and his age. He was also related to the ED physician or not to myself that he was having back pain as well as chest pain that started yesterday. In the ER he was found to have a troponin of 900 with a nonischemic EKG. Chest x-ray demonstrated the possible infiltrate and UA was consistent with a UTI she was also started on antibiotics as well as a heparin drip. He denies significant shortness of breath but states that he does have a little bit of a cough. Lactic acid on admission was elevated 2.1 though he does not have a leukocytosis but he did spike a temperature to 103.1 so cultures are also currently pending. The ED physician did notify cardiology about his potential non-STEMI. [facility] Medical History (Updated 12/02/23 @ 17:40 by Saumya Presley) Advanced directives, counseling/discussion Anemia Anginal equivalent Aortic stenosis Asthma Atherosclerosis of coronary artery of [place] heart without angina pectoris Atrial fibrillation BPH (benign prostatic hyperplasia) Bradycardia Cholelithiasis without obstruction Closed vertical fracture of left patella Degenerative disc disease, cervical Dermatitis Dizziness Essential hypertension Extensor tenosynovitis of right wrist Fall Fracture of triquetrum of left wrist Fracture of triquetrum of right wrist Glaucoma History of colon polyps History of pneumonia History of skin cancer Hyperlipidemia Hypertension Hyponatremia Iron deficiency anemia Left facial swelling Liver disease Memory impairment Migraines Multiple fractures New onset atrial fibrillation Non-smoker Nonrheumatic aortic valve stenosis Obesity Orthostatic hypotension Osteoarthritis Paroxysmal atrial fibrillation Physical debility Primary biliary cirrhosis Psoriasis Restrictive airway disease Rheumatoid arthritis Rheumatoid arthritis Right foot pain Seasonal allergies Sinus bradycardia Thrombocytopenia Vitamin D deficiency Home Medications aspirin 81 mg tablet,delayed release 81 mg PO DAILY@0800 heart health 12/06/16 [History Last Taken 12/02/23] travoprost 0.004 % eye drops 1 drp EACH EYE QHS glaucoma 06/02/19 [History Last Taken 06/06/20] magnesium oxide (Tobin) 1,500 mg PO QHS 08/05/20 [History Last Taken 12/01/23] cholecalciferol (vitamin D3) 50 mcg (2,000 unit) tablet 50 mcg PO DAILY 11/19/20 [History Last Taken 12/01/23] cyanocobalamin (vitamin B-12) 1,000 mcg capsule 1,000 mcg PO DAILY 11/19/20 [History Last Taken 12/01/23] Disability Placard #1 ea 12/01/21 [Rx Last Taken Unknown] Arthritis Compound 1 click topical DAILY PRN Pain #60 CLICKS 02/08/22 [Rx Last Taken Unknown] cetirizine 10 mg capsule 10 mg PO DAILY PRN allergy 10/05/22 [History Last Taken 12/01/23] apixaban 5 mg tablet (Eliquis) 5 mg PO BID #60 tabs 12/08/22 [Rx Last Taken 12/02/23] albuterol sulfate 90 mcg/actuation aerosol inhaler (Ventolin HFA) 2 puff inhalation Q4H PRN Asthma #8.5 grams 04/28/23 [Rx Last Taken Unknown] nebulizer and compressor (Portable Nebulizer System) #1 ea 04/30/23 [Rx Last Taken Unknown] guaifenesin 1,200 mg tablet, extended release 12 hr 1,200 mg PO Q12H #60 tabs 06/29/23 [Rx Last Taken 12/02/23] atorvastatin 20 mg tablet 20 mg PO QHS cholesterol #90 tabs 07/07/23 [Rx Last Taken 12/01/23] ursodiol 500 mg tablet See Rx Instructions .Route .COMPLEX #180 tabs 08/03/23 [Rx Last Taken 12/02/23] famotidine 20 mg tablet 20 mg PO DAILY #90 tabs 08/10/23 [Rx Last Taken 12/02/23] brimonidine 0.1 % eye drops 1 drp ophthalmic (eye) DAILY 08/15/23 [History Last Taken 12/02/23] budesonide-formoterol HFA 160 mcg-4.5 mcg/actuation aerosol inhaler (Symbicort) 2 puff inhalation BID 08/15/23 [History Last Taken 12/02/23] finasteride 5 mg tablet 5 mg PO DAILY #90 tabs 08/18/23 [Rx Last Taken 12/02/23] ezetimibe 10 mg tablet 10 mg PO DAILY heart health #90 tabs 09/15/23 [Rx Last Taken 12/02/23] nitroglycerin 0.4 mg sublingual tablet 0.4 mg sublingual Q5-15M PRN chest pain #25 tabs 09/15/23 [Rx Last Taken Unknown] ferrous sulfate 325 mg (65 mg iron) tablet 325 mg PO QODAY #90 tabs 11/23/23 [Rx Last Taken 12/01/23] ueerwjwl-pio-jekmd acid 0.4 mg-lycopene 300 mcg-lutein 250 mcg tablet (Centrum Silver) 1 tab PO DAILY 12/02/23 [History Last Taken 12/01/23] netarsudil 0.02 %-latanoprost 0.005 % eye drops (Rocklatan) 1 drp ophthalmic (eye) QHS 12/02/23 [History Last Taken 12/02/23] Allergy/AdvReac Type Severity Reaction Status Date / Time metoprolol [From Lopressor] Allergy Intermediate Shortness Verified 10/20/23 09:49 of breath Penicillins Allergy Rash Verified 10/20/23 09:49 Family History Father Hypertension Grandmother Hypertension Other Alcoholism Liver disease Surgical History (Updated 12/02/23 @ 17:40 by Saumya Presley) History of appendectomy History of cataract extraction History of colon resection History of coronary artery stent placement History of partial colectomy (~2003) Presence of stent in coronary artery Social History Smoking Status: Never smoker alcohol intake: current alcohol intake frequency: holidays/special occasions only substance use type: does not use caffeine: No what type of physical activity do you participate in: weight training ROS Constitutional Constitutional: Denies chills, fatigue, fever(s) or malaise Eyes Eyes: Denies blurry vision ENT HEENT: Denies headache(s) or nasal discharge Cardiovascular Cardiovascular: Reports chest pain; Denies dyspnea on exertion or syncope Respiratory/Chest Respiratory/Chest: Reports cough; Denies shortness of breath at rest or shortness of breath with exertion Gastrointestinal Gastrointestinal: Denies constipation, diarrhea, nausea or vomiting Genitourinary Genitourinary: Reports other Details: Flank pain ; Denies dysuria Neurologic Neurologic: Denies focal weakness, numbness or tremor(s) Psychiatric Psychiatric: Denies anxiety or depression Vital Signs Vital Signs Vital Signs: 12/02/23 12:31 12/02/23 13:37 12/02/23 13:37 Temperature 97.2 F L Temperature Source Temporal Pulse Rate 60 Respiratory Rate 18 Respiratory Effort Short of Breath Respiratory Pattern Tachypnea Blood Pressure 133/83 H Blood Pressure Mean 99 Blood Pressure Source Blood Pressure Position Blood Pressure Location Pulse Ox 92 Oxygen Delivery Method Room Air Room Air 12/02/23 14:29 12/02/23 16:00 12/02/23 16:45 Temperature 103.1 F H 99.1 F Temperature Source Oral Pulse Rate 83 90 Respiratory Rate 22 H 26 H Respiratory Effort Respiratory Pattern Blood Pressure 132/62 H 129/65 H Blood Pressure Mean 85 86 Blood Pressure Source Blood Pressure Position Blood Pressure Location Pulse Ox 95 94 Oxygen Delivery Method Room Air 12/02/23 17:11 Temperature 99.8 F H Temperature Source Oral Pulse Rate 92 Respiratory Rate 18 Respiratory Effort Respiratory Pattern Blood Pressure 115/62 Blood Pressure Mean 79 Blood Pressure Source Monitor Blood Pressure Position Semi-Fowlers Blood Pressure Location Left Arm Pulse Ox 93 Oxygen Delivery Method Room Air Weight Weight: 230 lb 6.129 oz Body Mass Index (BMI) 31.2 Physical Exam Narrative General: Alert, Oriented x2, Cooperative, No apparent distress HEENT: Atraumatic, PERRLA, EOMI, Normocephalic Oral: Moist Mucosa Neck: Supple, No JVD Lungs: Diminished, Normal air movement, No rhonchi, No wheeze, No rales Cardiovascular: Regular rate, Regular Rhythm, Normal S1, Normal S2, murmurs Abdomen: Soft, Non Tender, Non-Distended, No Hepato-splenomegaly Extremities: edema, Capillary Refill Less than 3 Seconds Skin: No rashes, No breakdown Musculoskeletal: No Tenderness to Palpation of Joints or Extremities Neurological: No focal neurological deficits, Motor Exam 5/5 strength throughout, Sensory exam intact to light touch and pain Psych/Mental Status: Normal Affect, Appropriate Results Lab / Micro Data 12/02/23 12:35 12/02/23 12:53 Labs: Laboratory Results - last 24 hr 12/02/23 12:35: WBC 8.9, RBC 4.13 L, Hgb 12.3 L, Hct 39.3 L, MCV 95.2 H, MCH 29.8, MCHC 31.3 L, RDW Std Deviation 52.5 H, RDW Coeff of Angelia 15.0 H, Plt Count 125 L, MPV 11.4, Immature Gran % (Auto) 0.600, Neut % (Auto) 83.1 H, Lymph % (Auto) 11.5 L, Schley % (Auto) 4.1, Eos % (Auto) 0.5, Baso % (Auto) 0.2, Absolute Neuts (auto) 7.4, Absolute Lymphs (auto) 1.02, Nucleated RBC % 0, PT Cancelled, INR Cancelled, APTT Cancelled 12/02/23 12:53: PT 15.1 H, INR 1.2, APTT 34.4, Sodium 134 L, Potassium 3.8, Chloride 100, Carbon Dioxide 29.0, Anion Gap 5, BUN 15, Creatinine 1.06, Estim Creat Clear Calc 63.01, Est GFR (MDRD) Af Amer 85, Est GFR (MDRD) Non-Af 70, BUN/Creatinine Ratio 14.2, Glucose 134 H, Lactic Acid 2.1 H*, Calcium 9.6, Troponin I High Sens 912 H* 12/02/23 14:36: Urine Color Yellow, Urine Clarity Sl. Cloudy, Urine pH 7.0, Ur Specific [place] 1.010, Urine Protein 15 H, Urine Glucose (UA) Normal, Urine Ketones Negative, Urine Occult Blood 50 H, Urine Nitrite Negative, Urine Bilirubin Negative, Urine Urobilinogen Normal, Ur Leukocyte Esterase 100 H, Urine RBC 0-5 SEEN, Urine WBC 10-25 SEEN, Ur Squamous Epith Cells 0 SEEN, Urine Bacteria 1+, Urine Mucus 0 SEEN 12/02/23 16:17: Troponin I High Sens 829 H* Micro: Microbiology 12/02/23 13:30 Mucosa - Nose SARS-CoV-2, Influenza & RSV (PCR) - Final ABG Data ABG results: ABG 12/02/23 15:04 Specimen Type ART Sample Site R Radial pH 7.48 H Bicarbonate Actual 24.6 Total CO2 26 Base Excess 1 O2 Saturation 93 L O2 % 21.0 ABG pCO2 33.1 L ABG pO2 62 L Bj Test Positive O2 Delivery Device Room Air Vent Mode Not entered Imaging Radiology Impression Chest X-Ray 12/02/23 13:25 IMPRESSION: Mild degree of vascular congestion with mild increased markings in the left midlung and left lower lobe. Electronically Signed: Charbel Aguayo MD at 14:20 EDT , Brain CT 12/02/23 14:42 IMPRESSION: Chronic involutional changes of the brain. Electronically Signed: Charbel Aguayo MD at 15:48 EDT , Assessment & Plan Assessment/Plan (1) Non-STEMI (non-ST elevated myocardial infarction): (2) Urinary tract infection: PLAN: Plan 1. Non-STEMI/A-fib/aortic stenosis/CAD status post stent/HLD ? Will hold his Eliquis and transition to heparin drip ? Will consult cardiology ? Initial troponin was over 900 will obtain serial troponins, EKG was nonischemic ? Continue with aspirin and Lipitor and Zetia 2. UTI with possible pneumonia with metabolic encephalopathy ? Not septic ? Urine cultures are pending ? Continue with Rocephin and azithromycin 3. GERD ? Stable ? Continue with his home medications 4. Iron deficiency anemia ? Stable ? Continue with his iron supplement 5. BPH ? Stable ? Continue with his home medications 6. Glaucoma ? Stable ? Continue with his home eyedrops DVT: Heparin drip 75 minutes was spent on direct patient care, including documentation as well as chart review and collaboration with colleagues Charges/Coding Visit Charges Inpatient E&M: 42864 Init Hosp L3
[2023-12-02 17:42] LABS: Reflex Lactate? Y
[2023-12-02 18:42] LABS: Lactic Acid 2.3 mmol/L (0.4-1.9)
[2023-12-02] MEDS: Albuterol 2.5 MG/3 ML VIAL.NEB. INHALATION (20:45)
[2023-12-02] MEDS: Budesonide Respules 0.5 MG/2 ML AMPUL.NEB. INHALATION (20:45)
[2023-12-02] MEDS: Atorvastatin Calcium 20 MG Tablet PO (21:46)
[2023-12-02] MEDS: 0.9% Saline Lock 10 ML Syringe IV (21:46)
[2023-12-02 22:28] LABS: Partial Thromboplast Time 120.2 Seconds (24.1-36.2)
[2023-12-03] VITALS (10 sets, daily range): BP systolic 99–127; BP diastolic 51–70; PULSE 60–79; RESP 16–18; TEMP 36.6–36.8; O2SAT 95–99
[2023-12-03] MEDS: 0.9% Saline Lock 10 ML Syringe IV ×4 (00:03→19:55)
--- NOTE | 2023-12-03 01:41 | NURSING ---
pulled two eyedrops from locked up meds, x1 Brimonidine and x1 Rocklatan made charge nurse aware. Taped med bag and locked up again. Both meds NF, sent to pharmacy to get verified.
[2023-12-03] MEDS: BRIMONIDINE TARTRATE 5 ML DROPS 1 ML OPHTHALMIC ×3 (02:05→21:53)
[2023-12-03] MEDS: NETARSUDIL MESYLAT/LATANOPROST 2.5 ML DROPS 1 ML EACH EYE ×2 (02:07→21:53)
[2023-12-03] MEDS: Piperacil/Tazobactam 3.375 GM in 0.9% Normal Saline (50mL MB+) 50 ML IV ×3 (05:13→21:51)
[2023-12-03 06:33] LABS: Absolute Lymphocyte Count 1.76 X10^3/uL (0.83-4.51); Absolute Neutrophil Count 19.7 X10^3/uL (2.0-7.7); Basophil# 0.09 X10^3/uL; Basophil% 0.4 % (0-1); Eosinophil# 0.18 X10^3/uL; Eosinophils% 0.7 % (0-5); Hematocrit 32.4 % (40-54); Hemoglobin 10.5 g/dL (13.0-16.5); Lymphocyte # 1.76 X10^3/ul (0.83-4.51); Lymphocyte % 7.3 % (19-41); Mean Corp Hgb Conc 32.4 g/dL (32-36); Mean Corpuscular Hgb 30.2 pg (27.0-32.0); Mean Corpuscular Volume 93.1 fL (80-94); Mean Platelet Vol. 11.7 fl (6.2-12.0); Monocyte# 1.79 X10^3/uL; Monocyte% 7.4 % (0-10); NRBC Flagged by Analyzer 0 % (0-5); Neutrophil # 19.69 X10^3/uL (2.7-7.7); Neutrophil % 81.4 % (47-70); POSITIVE COUNT YES; POSITIVE DIFFERENTIAL YES; POSITIVE MORPHOLOGY YES; Platelet Count 86 K/mm3 (150-450); RBC Distribution Width CV 15.4 % (11.6-14.6); RBC Distribution Width SD 52.5 fl (35.1-43.9); Red Blood Count 3.48 M/mm3 (4.6-6.2); White Blood Count 24.2 K/mm3 (4.4-11.0)
[2023-12-03 06:38] LABS: Differential Indicated SCAN CRITERIA MET
[2023-12-03 07:06] LABS: Anion Gap 7 (5-15); BUN 23 mg/dL (7-18); BUN/Creat Ratio 14.8 RATIO (10-20); Calcium,Total 8.5 mg/dL (8.5-10.1); Chloride 100 mmol/L (98-107); Creatinine, Serum 1.55 mg/dL (0.70-1.30); EST Glomerular Filtration Rate 45 mL/min (>60); Est Glom Filt Rate - Afr Amer 55 mL/min (>60); Estimated Creatinine Clearance 42.75 ml/min; Glucose 122 mg/dL (74-106); Sodium Level 133 mmol/L (136-145)
[2023-12-03 07:49] LABS: Differential Comment SCANNED
[2023-12-03] MEDS: Albuterol 2.5 MG/3 ML VIAL.NEB. INHALATION ×2 (08:05→20:09)
[2023-12-03] MEDS: Budesonide Respules 0.5 MG/2 ML AMPUL.NEB. INHALATION ×2 (08:05→20:09)
[2023-12-03] MEDS: Nystatin Powder 15gm Bottle 1 APPLIC TOPICAL ×2 (09:46→21:52)
--- NOTE | 2023-12-03 10:35 | CASEMGMT ---
CRISTY DIALLO Face to Face with patient for initial transition planning/care coordination assessment. RN CM introduced self and role at [facility]. Patient lying in bed, alert and oriented. Patient willing to participate in assessment and is able to answer all questions appropriately. Care providers, pharmacy, and demographics verified. PCP: Shel[facility] Specialists: [facility] Preferred Pharmacy: [facility] Insurance: [employer] Prescription Benefit: yes Living Will/HPOA: yes, Marlene Carey LNOK: , son Living Arrangements: Patient lives with in a single story home with 2 steps and railing to enter the home. Patient states he is independent at home. Transportation: DME/HHC: Patient has shower chair, raised toilet, cane, grab bars, and walker at home. Patient has had [facility] HHC in the past. Patient wishes to discharge home, denies need for home health at this time. Will monitor progress with therapy. Patient states he has no further needs or concerns at this time. CM to follow for discharge planning needs that may arise. Disposition Plan: Patient to discharge home with family support and follow-up plans in place. Will monitor progress with therapy for HHC. Delaney SHER, RN, CM
--- NOTE | 2023-12-03 10:46 | PCM.CONS.C ---
Assessment & Plan Assessment/Plan (1) Non-STEMI (non-ST elevated myocardial infarction): PLAN: Continue aspirin. Patient received about 24 hours of anticoagulation with heparin. DC in view of the drop in platelet count. No beta-blockers in view of borderline blood pressure. Check echocardiogram. Troponin elevation type I versus type II. Ideally coronary angiography would be indicated. However will monitor platelet counts and his kidney function. If these do not resolve or get worse, then will suggest a Lexiscan stress Myoview to assess burden of ischemia first. (2) CAD (coronary artery disease): PLAN: History of stent to the mid LAD. See #1 above. (3) Sepsis: PLAN: Underlying UTI and possible pneumonia. On antibiotics. Follow as per internal medicine. (4) Aortic stenosis: QUALIFIERS: Cardiac valve disease etiology: nonrheumatic Qualified Code(s): I35.0 - Nonrheumatic aortic (valve) stenosis PLAN: Check echocardiogram. (5) Primary biliary cirrhosis: PLAN: As per internal medicine/GI. (6) Hyperlipidemia: QUALIFIERS: Hyperlipidemia type: unspecified Qualified Code(s): E78.5 - Hyperlipidemia, unspecified PLAN: On atorvastatin. (7) Thrombocytopenia: PLAN: Patient has history of chronic thrombocytopenia. Likely secondary to his hepatic disease. However marked drop in platelet count noted from yesterday. Monitor. Consider hematology consult. (8) Paroxysmal atrial fibrillation: PLAN: Sinus rhythm here in the hospital. Was on apixaban at home. (9) Acute kidney injury: PLAN: Creatinine increased from 1.06 yesterday to 1.55 today. Monitor. Consider nephrology consult. HPI Consult Data Date of Consult: 12/03/23 HPI Narrative Reason for Consultation: NSTEMI HPI Narrative: This gentleman has past medical history of significant for coronary artery disease status post stents to his mid LAD. He also has history of mild aortic stenosis, liver disease and hypertension. Patient is a rather poor historian. This morning he has only been complaining of left groin pain. According to him, he came to the hospital because of lower back pain. He complains of chronic shortness of breath with exertion. He thinks that the night before presentation to the hospital, his shortness of breath may have been slightly worse. Denies any chest pains. No orthopnea. No ankle edema. Patient was noted to have UTI and possible pneumonia on investigations in the emergency room. His troponins were also noted to be elevated. FOR[facility]LY [facility] Medical History (Updated 12/03/23 @ 10:[address] Vanessa Simmons MD) Advanced directives, counseling/discussion Anemia Anginal equivalent Aortic stenosis Asthma Atherosclerosis of coronary artery of [place] heart without angina pectoris Atrial fibrillation BPH (benign prostatic hyperplasia) Bradycardia Cholelithiasis without obstruction Closed vertical fracture of left patella Degenerative disc disease, cervical Dermatitis Dizziness Essential hypertension Extensor tenosynovitis of right wrist Fall Fracture of triquetrum of left wrist Fracture of triquetrum of right wrist Glaucoma History of colon polyps History of pneumonia History of skin cancer Hyperlipidemia Hypertension Hyponatremia Iron deficiency anemia Left facial swelling Liver disease Memory impairment Migraines Multiple fractures New onset atrial fibrillation Non-smoker Nonrheumatic aortic valve stenosis Obesity Orthostatic hypotension Osteoarthritis Paroxysmal atrial fibrillation Physical debility Primary biliary cirrhosis Psoriasis Restrictive airway disease Rheumatoid arthritis Rheumatoid arthritis Right foot pain Seasonal allergies Sinus bradycardia Thrombocytopenia Vitamin D deficiency Home Medications aspirin 81 mg tablet,delayed release 81 mg PO DAILY@0800 [facility] 12/06/16 [History Last Taken 12/02/23] travoprost 0.004 % eye drops 1 drp EACH EYE QHS glaucoma 06/02/19 [History Last Taken 06/06/20] magnesium oxide (Tobin) 1,500 mg PO QHS 08/05/20 [History Last Taken 12/01/23] cholecalciferol (vitamin D3) 50 mcg (2,000 unit) tablet 50 mcg PO DAILY 11/19/20 [History Last Taken 12/01/23] cyanocobalamin (vitamin B-12) 1,000 mcg capsule 1,000 mcg PO DAILY 11/19/20 [History Last Taken 12/01/23] Disability Placard #1 ea 12/01/21 [Rx Last Taken Unknown] Arthritis Compound 1 click topical DAILY PRN Pain #60 CLICKS 02/08/22 [Rx Last Taken Unknown] cetirizine 10 mg capsule 10 mg PO DAILY PRN allergy 10/05/22 [History Last Taken 12/01/23] apixaban 5 mg tablet (Eliquis) 5 mg PO BID #60 tabs 12/08/22 [Rx Last Taken 12/02/23] albuterol sulfate 90 mcg/actuation aerosol inhaler (Ventolin HFA) 2 puff inhalation Q4H PRN Asthma #8.5 grams 04/28/23 [Rx Last Taken Unknown] nebulizer and compressor (Portable Nebulizer System) #1 ea 04/30/23 [Rx Last Taken Unknown] guaifenesin 1,200 mg tablet, extended release 12 hr 1,200 mg PO Q12H #60 tabs 06/29/23 [Rx Last Taken 12/02/23] atorvastatin 20 mg tablet 20 mg PO QHS cholesterol #90 tabs 07/07/23 [Rx Last Taken 12/01/23] ursodiol 500 mg tablet See Rx Instructions .Route .COMPLEX #180 tabs 08/03/23 [Rx Last Taken 12/02/23] famotidine 20 mg tablet 20 mg PO DAILY #90 tabs 08/10/23 [Rx Last Taken 12/02/23] brimonidine 0.1 % eye drops 1 drp ophthalmic (eye) DAILY 08/15/23 [History Last Taken 12/02/23] budesonide-formoterol HFA 160 mcg-4.5 mcg/actuation aerosol inhaler (Symbicort) 2 puff inhalation BID 08/15/23 [History Last Taken 12/02/23] finasteride 5 mg tablet 5 mg PO DAILY #90 tabs 08/18/23 [Rx Last Taken 12/02/23] ezetimibe 10 mg tablet 10 mg PO DAILY heart health #90 tabs 09/15/23 [Rx Last Taken 12/02/23] nitroglycerin 0.4 mg sublingual tablet 0.4 mg sublingual Q5-15M PRN chest pain #25 tabs 09/15/23 [Rx Last Taken Unknown] ferrous sulfate 325 mg (65 mg iron) tablet 325 mg PO QODAY #90 tabs 11/23/23 [Rx Last Taken 12/01/23] bgoqinnw-ezj-mrhpu acid 0.4 mg-lycopene 300 mcg-lutein 250 mcg tablet (Centrum Silver) 1 tab PO DAILY 12/02/23 [History Last Taken 12/01/23] netarsudil 0.02 %-latanoprost 0.005 % eye drops (Rocklatan) 1 drp ophthalmic (eye) QHS 12/02/23 [History Last Taken 12/02/23] Allergy/AdvReac Type Severity Reaction Status Date / Time metoprolol [From Lopressor] Allergy Intermediate Shortness Verified 10/20/23 09:49 of breath Penicillins Allergy Rash Verified 10/20/23 09:49 Family History Father Hypertension Grandmother Hypertension Other Alcoholism Liver disease Surgical History (Updated 12/02/23 @ 17:40 by Saumya Presley) History of appendectomy History of cataract extraction History of colon resection History of coronary artery stent placement History of partial colectomy (~2003) Presence of stent in coronary artery Social History Smoking Status: Never smoker alcohol intake: current alcohol intake frequency: holidays/special occasions only substance use type: does not use caffeine: No what type of physical activity do you participate in: weight training Physical Exam Narrative Comfortable. Lying flat in the bed. No apparent distress. Heart sounds 1 and 2 noted. 3/6 systolic murmur at base and 2/6 systolic murmur at apex. Chest clear to auscultation bilaterally. Alert oriented. No ankle edema. Risk Stratification Risk Stratification Applicable: No Objective Data Vital Signs: Vital Signs Temp Pulse Resp BP Pulse Ox O2 Del Method 98.0 F 60 18 103/62 99 Room Air 12/03/23 08:16 12/03/23 08:16 12/03/23 08:16 12/03/23 08:16 12/03/23 08:16 12/03/23 08:23 Oxygen Delivery Method Room Air Weight: 230 lb 6.129 oz Body Mass Index (BMI) 31.2 Intake & Output: Intake and Output for Last 24 Hours 12/01/23 12/02/23 12/03/23 23:59 23:59 23:59 Intake Total 731 / 731 47.02 / 47.02 Output Total 125 / 125 Balance 606 / 606 47.02 / 47.02 Lab / Micro Data 12/03/23 06:15 12/03/23 06:15 Labs: Laboratory Results - last 24 hr 12/02/23 12:35: WBC 8.9, RBC 4.13 L, Hgb 12.3 L, Hct 39.3 L, MCV 95.2 H, MCH 29.8, MCHC 31.3 L, RDW Std Deviation 52.5 H, RDW Coeff of Angelia 15.0 H, Plt Count 125 L, MPV 11.4, Immature Gran % (Auto) 0.600, Neut % (Auto) 83.1 H, Lymph % (Auto) 11.5 L, [place] % (Auto) 4.1, Eos % (Auto) 0.5, Baso % (Auto) 0.2, Absolute Neuts (auto) 7.4, Absolute Lymphs (auto) 1.02, Nucleated RBC % 0, PT Cancelled, INR Cancelled, APTT Cancelled 12/02/23 12:53: PT 15.1 H, INR 1.2, APTT 34.4, Sodium 134 L, Potassium 3.8, Chloride 100, Carbon Dioxide 29.0, Anion Gap 5, BUN 15, Creatinine 1.06, Estim Creat Clear Calc 63.01, Est GFR (MDRD) Af Amer 85, Est GFR (MDRD) Non-Af 70, BUN/Creatinine Ratio 14.2, Glucose 134 H, Lactic Acid 2.1 H*, Calcium 9.6, Troponin I High Sens 912 H* 12/02/23 14:36: Urine Color Yellow, Urine Clarity Sl. Cloudy, Urine pH 7.0, Ur Specific [place] 1.010, Urine Protein 15 H, Urine Glucose (UA) Normal, Urine Ketones Negative, Urine Occult Blood 50 H, Urine Nitrite Negative, Urine Bilirubin Negative, Urine Urobilinogen Normal, Ur Leukocyte Esterase 100 H, Urine RBC 0-5 SEEN, Urine WBC 10-25 SEEN, Ur Squamous Epith Cells 0 SEEN, Urine Bacteria 1+, Urine Mucus 0 SEEN 12/02/23 16:17: Troponin I High Sens 829 H* 12/02/23 18:00: Lactic Acid 2.3 H* 12/02/23 22:03: APTT 120.2 H* 12/03/23 06:15: WBC 24.2 H, RBC 3.48 L, Hgb 10.5 L, Hct 32.4 L, MCV 93.1, MCH 30.2, MCHC 32.4, RDW Std Deviation 52.5 H, RDW Coeff of Angelia 15.4 H, Plt Count 86 L, MPV 11.7, Immature Gran % (Auto) 2.800 H, Neut % (Auto) 81.4 H, Lymph % (Auto) 7.3 L, [place] % (Auto) 7.4, Eos % (Auto) 0.7, Baso % (Auto) 0.4, Absolute Neuts (auto) 19.7 H, Absolute Lymphs (auto) 1.76, Nucleated RBC % 0, Differential Comment SCANNED, Diff Path Review January, APTT 71.0 H, Sodium 133 L, Potassium 4.0, Chloride 100, Carbon Dioxide 26.0, Anion Gap 7, BUN 23 H, Creatinine 1.55 H, Estim Creat Clear Calc 42.75, Est GFR (MDRD) Af Amer 55 L, Est GFR (MDRD) Non-Af 45 L, BUN/Creatinine Ratio 14.8, Glucose 122 H, Calcium 8.5 Micro: Microbiology 12/02/23 13:30 Blood Culture (Wb) - Anticubital Right Blood Culture - Preliminary 12/02/23 13:20 Blood Culture (Wb) - Anticubital Right Blood Culture - Preliminary 12/02/23 13:30 Mucosa - Nose SARS-CoV-2, Influenza & RSV (PCR) - Final ABG Data ABG results: ABG 12/02/23 15:04 Specimen Type ART Sample Site R Radial pH 7.48 H Bicarbonate Actual 24.6 Total CO2 26 Base Excess 1 O2 Saturation 93 L O2 % 21.0 ABG pCO2 33.1 L ABG pO2 62 L Bj Test Positive O2 Delivery Device Room Air Vent Mode Not entered Cardiology Labs/Tests 12/02/23 12:35: WBC 8.9, RBC 4.13 L, Hgb 12.3 L, Hct 39.3 L, MCV 95.2 H, MCH 29.8, MCHC 31.3 L, Plt Count 125 L, MPV 11.4, Immature Gran % (Auto) 0.600, Neut % (Auto) 83.1 H, Lymph % (Auto) 11.5 L, [place] % (Auto) 4.1, Eos % (Auto) 0.5, Baso % (Auto) 0.2, Absolute Neuts (auto) 7.4, Nucleated RBC % 0, PT Cancelled, INR Cancelled, APTT Cancelled 12/02/23 12:53: PT 15.1 H, INR 1.2, APTT 34.4, Sodium 134 L, Potassium 3.8, Chloride 100, Carbon Dioxide 29.0, Anion Gap 5, BUN 15, Creatinine 1.06, Est GFR (MDRD) Af Amer 85, Est GFR (MDRD) Non-Af 70, BUN/Creatinine Ratio 14.2, Glucose 134 H, Lactic Acid 2.1 H*, Calcium 9.6 12/02/23 14:36: Urine Color Yellow, Urine Clarity Sl. Cloudy, Urine pH 7.0, Ur Specific [place] 1.010, Urine Protein 15 H, Urine Glucose (UA) Normal, Urine Ketones Negative, Urine Occult Blood 50 H, Urine Nitrite Negative, Urine Bilirubin Negative, Urine Urobilinogen Normal, Ur Leukocyte Esterase 100 H, Urine RBC 0-5 SEEN, Urine WBC 10-25 SEEN 12/02/23 15:04: pH 7.48 H, Bicarbonate Actual 24.6, Base Excess 1, O2 Saturation 93 L, ABG pCO2 33.1 L, ABG pO2 62 L, Bj Test Positive 12/02/23 18:00: Lactic Acid 2.3 H* 12/02/23 22:03: APTT 120.2 H* 12/03/23 06:15: WBC 24.2 H, RBC 3.48 L, Hgb 10.5 L, Hct 32.4 L, MCV 93.1, MCH 30.2, MCHC 32.4, Plt Count 86 L, MPV 11.7, Immature Gran % (Auto) 2.800 H, Neut % (Auto) 81.4 H, Lymph % (Auto) 7.3 L, [place] % (Auto) 7.4, Eos % (Auto) 0.7, Baso % (Auto) 0.4, Absolute Neuts (auto) 19.7 H, Nucleated RBC % 0, APTT 71.0 H, Sodium 133 L, Potassium 4.0, Chloride 100, Carbon Dioxide 26.0, Anion Gap 7, BUN 23 H, Creatinine 1.55 H, Est GFR (MDRD) Af Amer 55 L, Est GFR (MDRD) Non-Af 45 L, BUN/Creatinine Ratio 14.8, Glucose 122 H, Calcium 8.5 Rhythm: On telemetry, patient is noted to have predominantly sinus rhythm with frequent PVCs. EKG: Undetermined rhythm secondary to baseline artifact. ECHO: Stress Test: Cardiac Cath: PCI: CT Surgery: Holter monitor: EPS: PPM: CXR: Chest CT Scan: Radiography Diagnostic Testing: Radiology Impression Chest X-Ray 12/02/23 13:25 IMPRESSION: Mild degree of vascular congestion with mild increased markings in the left midlung and left lower lobe. Electronically Signed: Charbel Aguayo MD at 14:20 EDT , Brain CT 12/02/23 14:42 IMPRESSION: Chronic involutional changes of the brain. Electronically Signed: Charbel Aguayo MD at 15:48 EDT ,
[2023-12-03] MEDS: Azithromycin 500 MG in Dextrose 5%-Water (250mL Bag) 250 ML 250 MG IV (10:54)
[2023-12-03] MEDS: Aspirin E.C. 81 MG Tablet PO (10:56)
[2023-12-03] MEDS: Ferrous Sulfate 325 MG Tablet PO (10:56)
[2023-12-03] MEDS: Ezetimibe 10 MG Tablet PO (10:57)
[2023-12-03] MEDS: Famotidine 20 MG Tablet PO (10:57)
[2023-12-03] MEDS: Finasteride 5 MG Tablet PO (10:57)
--- NOTE | 2023-12-03 11:01 | ECHOD_ITS ---
Reason For Study: CAD/ASHD Procedure This was a 2D Doppler, Color Flow transthoracic echocardiogram. Exam performed portable in patient room. Left Ventricle Normal LV size. Mild concentric left ventricular hypertrophy. Posterior hypokinesis. Estimated ejection fraction 45%. Stage II diastolic dysfunction. Right Ventricle Normal right ventricle. Atria The left atrium is severely enlarged. The right atrium is moderately enlarged. Mitral Valve Moderate mitral annular calcification. Moderate (2+) posteriorly directed mitral valve insufficiency. Tricuspid Valve Moderate (2+) eccentric tricuspid valve insufficiency. Right ventricular systolic pressure estimated to be 60 mmHg. Aortic Valve Moderate diffuse aortic valve calcification. Mild aortic stenosis. Mild-Moderate (1-2+) aortic valve insufficiency. Pulmonic Valve The pulmonic valve is not well visualized. Great Vessels Mild to moderately dilated aortic root. Pericardium/Pleural No pericardial effusion. MMode/2D Measurements & Calculations LVIDd: 5.4 cm IVSd: 1.4 cm LVOT diam: 1.9 cm LVIDs: 4.6 cm LVPWd: 1.3 cm LVOT area: 2.7 cm2 RVDd: 4.4 cm FS: 14.5 % Ao root diam: 4.0 cm LAV(MOD-bp): 93.9 ml LVAd ap4: 39.1 cm2 LAV(MOD-bp) Indexed: 41.5 ml/m2 LVLd ap4: 9.0 cm LAV(MOD-sp2): 105.3 ml EDV(MOD-sp4): 140.2 ml LAV(MOD-sp4): 78.2 ml EDV(sp4-el): 145.0 ml LVAs ap4: 27.4 cm2 LVLs ap4: 7.6 cm ESV(MOD-sp4): 80.7 ml ESV(sp4-el): 83.7 ml EF(MOD-sp4): 42.4 % EF(sp4-el): 42.3 % SV(MOD-sp4): 59.5 ml SV(sp4-el): 61.2 ml LA A4 area: 25.4 cm2 LA dimension(2D): 4.7 cm RA A4 area: 30.4 cm2 TAPSE: 2.3 cm Time Measurements MV dec time: 0.10 sec Doppler Measurements & Calculations MV E max frantz: 95.8 cm/sec Lat Peak E' Frantz: 9.2 cm/sec Med Peak E' Frantz: 6.6 cm/sec MV A max frantz: 73.2 cm/sec E/E' lat: 10.5 E/E' med: 14.4 MV E/A: 1.3 MV V2 max: 113.9 cm/sec Ao V2 max: 263.5 cm/sec MV max P.2 mmHg MV dec slope: 978.5 cm/sec2 Ao max P.8 mmHg MV V2 mean: 73.3 cm/sec Ao V2 mean: 186.1 cm/sec MV mean P.4 mmHg Ao mean P.0 mmHg MV V2 VTI: 25.7 cm Ao V2 VTI: 55.7 cm PA V2 max: 76.6 cm/sec TR max frantz: 335.1 cm/sec PA V2 mean: 57.3 cm/sec TR max P.9 mmHg ECHO/Echo Complete Interpretation Summary Mild concentric left ventricular hypertrophy. Posterior hypokinesis. Estimated ejection fraction 45%. Stage II diastolic dysf unction. The left atrium is severely enlarged. Moderate mitral annular calcification. Moderate (2+) posteriorly directed mitral valve insufficiency. Moderate (2+) eccentric tricuspid valve insufficiency. Right ventricular systol ic pressure estimated to be 60 mmHg. Moderate diffuse aortic valve calcification. Mild aortic stenosis. Mild-Moderat e (1-2+) aortic valve insufficiency. Mild to moderately dilated aortic root. Ordering Physician: Vanessa Simmons Referring Physician: Addi Mario Performed By: Gale Tarango RCS
[2023-12-03] MEDS: Acetaminophen 325 MG Tablet 650 MG PO (14:49)
--- NOTE | 2023-12-03 15:55 | RAD_ITS ---
EXAM: XR LEFT FEMUR, 2 VIEWS CLINICAL INDICATION: Left groin/upper leg pain TECHNIQUE: Frontal and lateral views of the left femur. COMPARISON: No relevant prior studies available. FINDINGS: BONES/JOINTS: Unremarkable. No acute fracture. No subluxation. Normal alignment. Preservation of the joint space. No sclerotic or destructive changes observed. SOFT TISSUES: Unremarkable. No soft tissue swelling or gas. No radiopaque foreign body. RAD/Femur Min 2 Views IMPRESSION: Negative left femur x-rays. Electronically Signed: Al Platt MD at 16:56 EDT ,
--- NOTE | 2023-12-03 16:23 | PN_ITS ---
Subjective Subjective Patient seen and examined. He complained of pain in his left groin area. He is being managed for nonstemi. HE denied any chest pain, but admit to shortness of breath. Review of systems is otherwise negative. Objective Data Objective Data Vital Signs: Vital Signs Temp Pulse Resp BP Pulse Ox O2 Del Method 98.0 F 79 18 111/51 L 97 Room Air 12/03/23 14:16 12/03/23 14:16 12/03/23 14:16 12/03/23 14:16 12/03/23 14:16 12/03/23 14:50 Oxygen Delivery Method Room Air Weight: 230 lb 6.129 oz Body Mass Index (BMI) 31.2 Intake & Output: Intake and Output for Last 24 Hours 12/01/23 12/02/23 12/03/23 23:59 23:59 23:59 Intake Total 731 / 731 394.58 / 394.58 Output Total 125 / 125 1 / 1 Balance 606 / 606 393.58 / 393.58 Lab / Micro Data 12/03/23 06:15 12/03/23 06:15 Labs: Laboratory Results - last 24 hr 12/02/23 16:17: Troponin I High Sens 829 H* 12/02/23 18:00: Lactic Acid 2.3 H* 12/02/23 22:03: APTT 120.2 H* 12/03/23 06:15: WBC 24.2 H, RBC 3.48 L, Hgb 10.5 L, Hct 32.4 L, MCV 93.1, MCH 30.2, MCHC 32.4, RDW Std Deviation 52.5 H, RDW Coeff of Angelia 15.4 H, Plt Count 86 L, MPV 11.7, Immature Gran % (Auto) 2.800 H, Neut % (Auto) 81.4 H, Lymph % (Auto) 7.3 L, [place] % (Auto) 7.4, Eos % (Auto) 0.7, Baso % (Auto) 0.4, Absolute Neuts (auto) 19.7 H, Absolute Lymphs (auto) 1.76, Nucleated RBC % 0, Differential Comment SCANNED, Diff Path Review January, APTT 71.0 H, Sodium 133 L, Potassium 4.0, Chloride 100, Carbon Dioxide 26.0, Anion Gap 7, BUN 23 H, Creatinine 1.55 H, Estim Creat Clear Calc 42.75, Est GFR (MDRD) Af Amer 55 L, Est GFR (MDRD) Non-Af 45 L, BUN/Creatinine Ratio 14.8, Glucose 122 H, Calcium 8.5 Micro: Microbiology 12/02/23 14:36 Urine, Clean Catch Urine Culture - Preliminary 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 12/02/23 13:30 Blood Culture (Wb) - Anticubital Right Blood Culture - Preliminary 12/02/23 13:20 Blood Culture (Wb) - Anticubital Right Blood Culture - Preliminary 12/02/23 13:30 Mucosa - Nose SARS-CoV-2, Influenza & RSV (PCR) - Final Physical Exam Const alert, oriented x3 and no apparent distress Constitutional Narrative: on BIPAP, frail General Appearance: cooperative HEENT normocephalic, head/scalp atraumatic, moist oral mucous membranes and oropharynx normal Eyes PERRL and EOMs intact bilaterally Neck no lymphadenopathy Lymph Lymphatic: no lymphadenopathy noted and no lymphedema noted Resp Resp Narrative: diminished breath sounds basally, few crackles. on room air. Cardio regular rate, regular rhythm, S1 normal heart sound, S2 normal heart sound and no murmurs GI normal to inspection, nondistended, normoactive bowel sounds, soft to palpation, non-tender and non-distended Extremity normal capillary refill, no clubbing, cyanosis or edema and no calf tenderness Extremity Narrative: mild tenderness in left groin area Neuro CN's II-XII intact bilaterally, no focal motor deficits, no sensory deficits noted and deep tendon reflexes 2+ bilaterally Motor Exam: strength 5/5 throughout and general weakness Psych Appearance: appropriate Assessment & Plan Assessment/Plan (1) Acute kidney injury: (2) Paroxysmal atrial fibrillation: (3) Sepsis: (4) Non-STEMI (non-ST elevated myocardial infarction): PLAN: Plan #Nonstemi * on heparin drip * cardiology consulted * troponins elevated * on aspirin, lipitor and zetia. * wbc is 24.2 * #Acute encephalopathy due to UTI and probable pneumonia * on IV rocephin and azithromycin * get urine cultures * #[place]: Creatinine is 1.55 with a baseline of around 0.7. Will hydrate with IV fluids and trend. 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 #Iron deficiency anemia: on oral iron supplementation #BPH: on flomax #Glaucoma: on eye drops DVT prophylaxis: Currently on heparin drip Charges/Coding Visit Charges Inpatient E&M: 46447 Subs Hosp L3
[2023-12-03] MEDS: Ursodiol 250 MG Tablet 500 MG PO (17:29)
[2023-12-03] MEDS: oxyCODONE 5 MG Tablet PO (19:54)
[2023-12-03] MEDS: Atorvastatin Calcium 20 MG Tablet PO (21:53)
[2023-12-04] VITALS (8 sets, daily range): BP systolic 101–125; BP diastolic 67–80; PULSE 67–89; RESP 16–20; TEMP 36.6; O2SAT 94–95; BMI 31.1
[2023-12-04] MEDS: Acetaminophen 325 MG Tablet 650 MG PO ×3 (02:06→16:12)
[2023-12-04] MEDS: Piperacil/Tazobactam 3.375 GM in 0.9% Normal Saline (50mL MB+) 50 ML IV ×3 (05:21→21:44)
[2023-12-04] MEDS: Albuterol 2.5 MG/3 ML VIAL.NEB. INHALATION ×3 (07:39→19:20)
[2023-12-04] MEDS: Budesonide Respules 0.5 MG/2 ML AMPUL.NEB. INHALATION ×2 (07:39→19:21)
[2023-12-04] MEDS: Aspirin E.C. 81 MG Tablet PO (09:13)
[2023-12-04] MEDS: Ezetimibe 10 MG Tablet PO (09:13)
[2023-12-04] MEDS: Famotidine 20 MG Tablet PO (09:13)
[2023-12-04] MEDS: Ursodiol 250 MG Tablet 500 MG PO ×2 (09:13→16:08)
[2023-12-04] MEDS: Finasteride 5 MG Tablet PO (09:13)
[2023-12-04] MEDS: Nystatin Powder 15gm Bottle 1 APPLIC TOPICAL ×2 (09:14→21:44)
[2023-12-04] MEDS: BRIMONIDINE TARTRATE 5 ML DROPS 1 ML OPHTHALMIC ×2 (09:14→21:44)
[2023-12-04 09:30] LABS: Absolute Lymphocyte Count 1.67 X10^3/uL (0.83-4.51); Basophil# 0.05 X10^3/uL; Basophil% 0.3 % (0-1); Eosinophil# 0.01 X10^3/uL; Eosinophils% 0.1 % (0-5); Hematocrit 32.5 % (40-54); Hemoglobin 10.5 g/dL (13.0-16.5); Lymphocyte # 1.67 X10^3/ul (0.83-4.51); Lymphocyte % 8.8 % (19-41); Mean Corp Hgb Conc 32.3 g/dL (32-36); Mean Corpuscular Hgb 29.9 pg (27.0-32.0); Mean Corpuscular Volume 92.6 fL (80-94); Mean Platelet Vol. 12.2 fl (6.2-12.0); Monocyte% 8.4 % (0-10); NRBC Flagged by Analyzer 0 % (0-5); Neutrophil # 15.03 X10^3/uL (2.7-7.7); Neutrophil % 78.9 % (47-70); POSITIVE COUNT YES; POSITIVE DIFFERENTIAL YES; POSITIVE MORPHOLOGY YES; Platelet Count 78 K/mm3 (150-450); RBC Distribution Width CV 15.3 % (11.6-14.6); RBC Distribution Width SD 52.8 fl (35.1-43.9); Red Blood Count 3.51 M/mm3 (4.6-6.2)
[2023-12-04 09:41] LABS: Anion Gap 6 (5-15); BUN 26 mg/dL (7-18); BUN/Creat Ratio 15.8 RATIO (10-20); Calcium,Total 8.7 mg/dL (8.5-10.1); Chloride 100 mmol/L (98-107); Creatinine, Serum 1.65 mg/dL (0.70-1.30); EST Glomerular Filtration Rate 42 mL/min (>60); Est Glom Filt Rate - Afr Amer 51 mL/min (>60); Estimated Creatinine Clearance 40.11 ml/min; Glucose 120 mg/dL (74-106); Potassium 4.1 mmol/L (3.5-5.1); Sodium Level 131 mmol/L (136-145)
[2023-12-04 09:56] LABS: Differential Indicated SCAN CRITERIA MET
[2023-12-04] MEDS: Azithromycin 500 MG in Dextrose 5%-Water (250mL Bag) 250 ML 250 MG IV (10:17)
--- NOTE | 2023-12-04 12:26 | PCM.PN.CARD ---
Subjective Subjective Feels better. No complaints. Objective Data Vital Signs: Vital Signs Temp Pulse Resp BP Pulse Ox O2 Del Method 97.9 F 76 16 101/68 95 Room Air 12/04/23 09:07 12/04/23 09:07 12/04/23 09:07 12/04/23 09:07 12/04/23 09:07 12/04/23 09:07 Oxygen Delivery Method Room Air Weight: 229 lb 11.547 oz Body Mass Index (BMI) 31.1 Intake & Output: Intake and Output for Last 24 Hours 12/02/23 12/03/23 12/04/23 23:59 23:59 23:59 Intake Total 731 / 731 1185.62 / 1665.62 835 / 835 Output Total 125 / 125 1 / 976 1275 / 1275 Balance 606 / 606 1184.62 / 689.62 -440 / -440 Lab / Micro Data 12/04/23 08:56 12/04/23 08:56 Labs: Laboratory Results - last 24 hr 12/04/23 08:56: WBC 19.0 H, RBC 3.51 L, Hgb 10.5 L, Hct 32.5 L, MCV 92.6, MCH 29.9, MCHC 32.3, RDW Std Deviation 52.8 H, RDW Coeff of Angelia 15.3 H, Plt Count 78 L, MPV 12.2 H, Immature Gran % (Auto) 3.500 H, Neut % (Auto) 78.9 H, Lymph % (Auto) 8.8 L, [place] % (Auto) 8.4, Eos % (Auto) 0.1, Baso % (Auto) 0.3, Absolute Neuts (auto) 15.0 H, Absolute Lymphs (auto) 1.67, Nucleated RBC % 0, Sodium 131 L, Potassium 4.1, Chloride 100, Carbon Dioxide 25.0, Anion Gap 6, BUN 26 H, Creatinine 1.65 H, Estim Creat Clear Calc 40.11, Est GFR (MDRD) Af Amer 51 L, Est GFR (MDRD) Non-Af 42 L, BUN/Creatinine Ratio 15.8, Glucose 120 H, Calcium 8.7 Micro: Microbiology 12/02/23 14:36 Urine, Clean Catch Urine Culture - Final Escherichia coli Cardiology Labs/Tests 12/04/23 08:56: WBC 19.0 H, RBC 3.51 L, Hgb 10.5 L, Hct 32.5 L, MCV 92.6, MCH 29.9, MCHC 32.3, Plt Count 78 L, MPV 12.2 H, Immature Gran % (Auto) 3.500 H, Neut % (Auto) 78.9 H, Lymph % (Auto) 8.8 L, [place] % (Auto) 8.4, Eos % (Auto) 0.1, Baso % (Auto) 0.3, Absolute Neuts (auto) 15.0 H, Nucleated RBC % 0, Sodium 131 L, Potassium 4.1, Chloride 100, Carbon Dioxide 25.0, Anion Gap 6, BUN 26 H, Creatinine 1.65 H, Est GFR (MDRD) Af Amer 51 L, Est GFR (MDRD) Non-Af 42 L, BUN/Creatinine Ratio 15.8, Glucose 120 H, Calcium 8.7 Rhythm: EKG: ECHO: Stress Test: Cardiac Cath: PCI: CT Surgery: Holter monitor: EPS: PPM: CXR: Chest CT Scan: Radiography Diagnostic Testing: Radiology Impression Femur X-Ray 12/03/23 15:55 IMPRESSION: Negative left femur x-rays. Electronically Signed: Al Platt MD at 16:56 EDT , Physical Exam Narrative Comfortable. Lying flat in the bed. No apparent distress. Heart sounds 1 and 2 noted. 3/6 systolic murmur at base and 2/6 systolic murmur at apex. Chest clear to auscultation bilaterally. Alert oriented. No ankle edema. Assessment & Plan Assessment/Plan (1) Non-STEMI (non-ST elevated myocardial infarction): PLAN: Continue aspirin. Patient received about 24 hours of anticoagulation with heparin. DC in view of the drop in platelet count. No beta-blockers in view of borderline blood pressure. Check echocardiogram. Troponin elevation likely type II. Ideally would recommend coronary angiography however will postpone in view of trend of decreasing platelets and increasing creatinine. Recommend nephrology and hematology consult (2) CAD (coronary artery disease): PLAN: History of stent to the mid LAD. See #1 above. (3) Sepsis: PLAN: Underlying UTI and possible pneumonia. On antibiotics. Follow as per internal medicine. (4) Aortic stenosis: QUALIFIERS: Cardiac valve disease etiology: nonrheumatic Qualified Code(s): I35.0 - Nonrheumatic aortic (valve) stenosis PLAN: Check echocardiogram. (5) Primary biliary cirrhosis: PLAN: As per internal medicine/GI. (6) Hyperlipidemia: QUALIFIERS: Hyperlipidemia type: unspecified Qualified Code(s): E78.5 - Hyperlipidemia, unspecified PLAN: On atorvastatin. (7) Thrombocytopenia: PLAN: Patient has history of chronic thrombocytopenia. Likely secondary to his hepatic disease. However marked drop in platelet count noted from yesterday. Monitor. Consider hematology consult. (8) Paroxysmal atrial fibrillation: PLAN: Sinus rhythm here in the hospital. Was on apixaban at home. (9) Acute kidney injury: PLAN: Creatinine increased from 1.06 yesterday to 1.55 today. Monitor. Consider nephrology consult.
--- NOTE | 2023-12-04 12:54 | PN_ITS ---
Subjective Subjective Patient seen and examined. He complains of some pain in his left upper thigh area. He said the pain had improved though he was able to flex his left leg at the hip much better. Cardiology on board. He has remained hemodynamically stable. Objective Data Objective Data Vital Signs: Vital Signs Temp Pulse Resp BP Pulse Ox O2 Del Method 97.9 F 76 16 101/68 95 Room Air 12/04/23 09:07 12/04/23 09:07 12/04/23 09:07 12/04/23 09:07 12/04/23 09:07 12/04/23 09:07 Oxygen Delivery Method Room Air Weight: 229 lb 11.547 oz Body Mass Index (BMI) 31.1 Intake & Output: Intake and Output for Last 24 Hours 12/02/23 12/03/23 12/04/23 23:59 23:59 23:59 Intake Total 731 / 731 1185.62 / 1665.62 835 / 835 Output Total 125 / 125 1 / 976 1275 / 1275 Balance 606 / 606 1184.62 / 689.62 -440 / -440 Lab / Micro Data 12/04/23 08:56 12/04/23 08:56 Labs: Laboratory Results - last 24 hr 12/04/23 08:56: WBC 19.0 H, RBC 3.51 L, Hgb 10.5 L, Hct 32.5 L, MCV 92.6, MCH 29.9, MCHC 32.3, RDW Std Deviation 52.8 H, RDW Coeff of Angelia 15.3 H, Plt Count 78 L, MPV 12.2 H, Immature Gran % (Auto) 3.500 H, Neut % (Auto) 78.9 H, Lymph % (Auto) 8.8 L, [place] % (Auto) 8.4, Eos % (Auto) 0.1, Baso % (Auto) 0.3, Absolute Neuts (auto) 15.0 H, Absolute Lymphs (auto) 1.67, Nucleated RBC % 0, Sodium 131 L, Potassium 4.1, Chloride 100, Carbon Dioxide 25.0, Anion Gap 6, BUN 26 H, Creatinine 1.65 H, Estim Creat Clear Calc 40.11, Est GFR (MDRD) Af Amer 51 L, Est GFR (MDRD) Non-Af 42 L, BUN/Creatinine Ratio 15.8, Glucose 120 H, Calcium 8.7 Micro: Microbiology 12/02/23 14:36 Urine, Clean Catch Urine Culture - Final Escherichia coli 12/02/23 13:30 Blood Culture (Wb) - Anticubital Right Blood Culture - Preliminary 12/02/23 13:20 Blood Culture (Wb) - Anticubital Right Blood Culture - Preliminary 12/02/23 13:30 Mucosa - Nose SARS-CoV-2, Influenza & RSV (PCR) - Final Radiography Diagnostic Testing: Radiology Impression Femur X-Ray 12/03/23 15:55 IMPRESSION: Negative left femur x-rays. Electronically Signed: Al Platt MD at 16:56 EDT , Physical Exam Const alert, oriented x3 and no apparent distress General Appearance: cooperative HEENT normocephalic, head/scalp atraumatic, moist oral mucous membranes and oropharynx normal Eyes PERRL and EOMs intact bilaterally Neck no lymphadenopathy Lymph Lymphatic: no lymphadenopathy noted and no lymphedema noted Resp Resp Narrative: diminished breath sounds basally, few crackles. on room air. Cardio regular rate, regular rhythm, S1 normal heart sound, S2 normal heart sound and no murmurs GI normal to inspection, nondistended, normoactive bowel sounds, soft to palpation, non-tender and non-distended Extremity normal capillary refill, no clubbing, cyanosis or edema and no calf tenderness Extremity Narrative: mild tenderness in left groin area General Extremity: no tenderness to palpation of joints or extremities Skin General Skin Exam: no breakdown Neuro CN's II-XII intact bilaterally, no focal motor deficits, no sensory deficits noted and deep tendon reflexes 2+ bilaterally Motor Exam: strength 5/5 throughout and general weakness Psych Appearance: appropriate Assessment & Plan Assessment/Plan (1) Acute kidney injury: (2) Paroxysmal atrial fibrillation: (3) Sepsis: (4) Non-STEMI (non-ST elevated myocardial infarction): PLAN: Plan #Nonstemi * on heparin drip * cardiology on board. * troponins elevated * on aspirin, lipitor and zetia. * heparin drip discontinued due to thrombocytopenia * #Acute encephalopathy due to UTI and probable pneumonia * on IV rocephin and azithromycin * get urine cultures * wbc is down to 19 from 24 * Urine cultures grew E. coli * #Thrombocytopenia * has chronic thrombocytopenia * wbc is down to 78 from 86; was 125 on admission. * on hepariin drip * platelets have dropped significantly * Heparin drip discontinued. * #FRANKLIN: Creatinine is up to 1.65 from 1.55 yesterday. Has a baseline of 0.7. Will hydrate with IV fluids and trend. If it continues to trend upwards will consult nephrology. 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 Heparin drip discontinued due to thrombocytopenia. Charges/Coding Visit Charges Inpatient E&M: 70146 Subs Hosp L3
[2023-12-04] MEDS: 0.9% Normal Saline (1000mL) 1,000 ML 100 ML IV ×2 (14:11→23:55)
[2023-12-04] MEDS: Atorvastatin Calcium 20 MG Tablet PO (21:44)
[2023-12-04] MEDS: NETARSUDIL MESYLAT/LATANOPROST 2.5 ML DROPS 1 ML EACH EYE (21:45)
[2023-12-05] VITALS (17 sets, daily range): BP systolic 116–144; BP diastolic 56–87; PULSE 65–96; RESP 14–18; TEMP 36.5–36.8; O2SAT 92–99; BMI 31.4
[2023-12-05] MEDS: Acetaminophen 325 MG Tablet 650 MG PO ×2 (04:02→21:50)
[2023-12-05] MEDS: Piperacil/Tazobactam 3.375 GM in 0.9% Normal Saline (50mL MB+) 50 ML IV ×3 (05:09→21:50)
[2023-12-05] MEDS: Budesonide Respules 0.5 MG/2 ML AMPUL.NEB. INHALATION ×2 (07:19→20:41)
[2023-12-05] MEDS: Albuterol 2.5 MG/3 ML VIAL.NEB. INHALATION ×2 (07:21→20:42)
[2023-12-05 08:35] LABS: Absolute Lymphocyte Count 1.89 X10^3/uL (0.83-4.51); Absolute Neutrophil Count 8.9 X10^3/uL (2.0-7.7); Basophil# 0.04 X10^3/uL; Basophil% 0.3 % (0-1); Eosinophils% 0.8 % (0-5); Hematocrit 29.8 % (40-54); Hemoglobin 9.7 g/dL (13.0-16.5); Lymphocyte # 1.89 X10^3/ul (0.83-4.51); Lymphocyte % 15.2 % (19-41); Mean Corp Hgb Conc 32.6 g/dL (32-36); Mean Corpuscular Hgb 30.5 pg (27.0-32.0); Mean Corpuscular Volume 93.7 fL (80-94); Monocyte# 1.44 X10^3/uL; Monocyte% 11.6 % (0-10); NRBC Flagged by Analyzer 0 % (0-5); Neutrophil # 8.88 X10^3/uL (2.7-7.7); Neutrophil % 71.3 % (47-70); POSITIVE COUNT YES; Platelet Count 78 K/mm3 (150-450); RBC Distribution Width CV 15.4 % (11.6-14.6); RBC Distribution Width SD 53.1 fl (35.1-43.9); Red Blood Count 3.18 M/mm3 (4.6-6.2); White Blood Count 12.5 K/mm3 (4.4-11.0)
[2023-12-05 08:51] LABS: Anion Gap 4 (5-15); BUN 28 mg/dL (7-18); BUN/Creat Ratio 18.3 RATIO (10-20); Calcium,Total 8.6 mg/dL (8.5-10.1); Chloride 109 mmol/L (98-107); Creatinine, Serum 1.53 mg/dL (0.70-1.30); EST Glomerular Filtration Rate 46 mL/min (>60); Est Glom Filt Rate - Afr Amer 56 mL/min (>60); Estimated Creatinine Clearance 43.47 ml/min; Glucose 103 mg/dL (74-106); Potassium 3.9 mmol/L (3.5-5.1); Sodium Level 139 mmol/L (136-145)
[2023-12-05] MEDS: Azithromycin 500 MG in Dextrose 5%-Water (250mL Bag) 250 ML 250 MG IV (09:30)
[2023-12-05] MEDS: Ezetimibe 10 MG Tablet PO (09:31)
[2023-12-05] MEDS: Aspirin E.C. 81 MG Tablet PO (09:31)
[2023-12-05] MEDS: Famotidine 20 MG Tablet PO (09:31)
[2023-12-05] MEDS: Ferrous Sulfate 325 MG Tablet PO (09:31)
[2023-12-05] MEDS: Nystatin Powder 15gm Bottle 1 APPLIC TOPICAL ×2 (09:31→21:50)
[2023-12-05] MEDS: Ursodiol 250 MG Tablet 500 MG PO ×2 (09:32→17:18)
[2023-12-05] MEDS: BRIMONIDINE TARTRATE 5 ML DROPS 1 ML OPHTHALMIC ×2 (09:32→21:50)
--- NOTE | 2023-12-05 10:09 | PCM.PN.BLA ---
Progress Note Platelet count stable. Creatinine also stable. Recommend coronary angiography with possible revascularization. Risks benefits and alternatives explained to the patient. He understand these and wishes to proceed.
[2023-12-05] MEDS: Finasteride 5 MG Tablet PO (10:27)
--- NOTE | 2023-12-05 11:59 | CASEMGMT ---
Addendum entered by Malka Kwon 12/05/23 15:06: SW made a referral to [facility]CU and they can take patient. SW will notify patient and his . Malka LIM Original Note: Therapy is recommending shelter facility for patient. SW met with patient and his . Introduced self and role at [facility]. SW asked about discharge plan. Patient said he wants to talk with therapy and the doctor as he needs to know why his leg hurts. Patient said he is not ready to be discharged. SW explained to patient that he may not be ready for discharge, but the discharge planning process still needs discussed. Patient said he has been to rehab here at [facility] and if he has to go somewhere he would prefer to go there. SW asked if he meant TCU and patient's said he wants the Rehab Unit. SW explained in order to get into Rehab there are certain diagnoses one must have to qualify for the Rehab Unit. SW explained he does not have a qualifying diagnosis. SW explained there is also the TCU that does rehab. Patient stated he would want to stay at [facility] for her rehab and TCU would be fine. SW did provide patient with a list of shelter facility providers including quality and resource use data and consistent with patient?s preferred geographic region, medical needs, and insurance network were provided from the [facility] [facility]. Patient also expressed concern with his leg pain and that he cannot go anywhere until the figure out what is wrong with his leg. SW let them know SW will continue to follow along and assist with d/c planning. Malka LIM
--- NOTE | 2023-12-05 12:20 | NURSING ---
@ bedside ,ready for cardiac per DR Simmons
--- NOTE | 2023-12-05 13:19 | PN_ITS ---
Subjective Subjective Patient seen and examined today. He had no active disease. Pain in his left leg had improved markedly. Replaced. Otherwise negative. He has remained hemodynamically stable. His platelets have been dropping so heparin drip was discontinued yesterday. Platelets today are 78. He is status EBUS yesterday and has not declined any further. Objective Data Objective Data Vital Signs: Vital Signs Temp Pulse Resp BP Pulse Ox O2 Del Method 98.1 F 96 18 121/82 H 92 Room Air 12/05/23 12:08 12/05/23 12:08 12/05/23 12:08 12/05/23 12:08 12/05/23 12:08 12/05/23 12:08 Oxygen Delivery Method Room Air Weight: 232 lb 2.348 oz Body Mass Index (BMI) 31.4 Intake & Output: Intake and Output for Last 24 Hours 12/03/23 12/04/23 12/05/23 23:59 23:59 23:59 Intake Total 1185.62 / 1665.62 2858.33 / 2858.33 455 / 455 Output Total 3125 / 3125 1100 / 1100 Balance 1184.62 / 689.62 -266.67 / -266.67 -645 / -645 Lab / Micro Data 12/05/23 08:13 12/05/23 08:13 Labs: Laboratory Results - last 24 hr 12/05/23 08:13: WBC 12.5 H, RBC 3.18 L, Hgb 9.7 L, Hct 29.8 L, MCV 93.7, MCH 30.5, MCHC 32.6, RDW Std Deviation 53.1 H, RDW Coeff of Angelia 15.4 H, Plt Count 78 L, MPV 12.0, Immature Gran % (Auto) 0.800, Neut % (Auto) 71.3 H, Lymph % (Auto) 15.2 L, [place] % (Auto) 11.6 H, Eos % (Auto) 0.8, Baso % (Auto) 0.3, Absolute Neuts (auto) 8.9 H, Absolute Lymphs (auto) 1.89, Nucleated RBC % 0, Sodium 139, Potassium 3.9, Chloride 109 H, Carbon Dioxide 26.0, Anion Gap 4 L, BUN 28 H, Creatinine 1.53 H, Estim Creat Clear Calc 43.47, Est GFR (MDRD) Af Amer 56 L, Est GFR (MDRD) Non-Af 46 L, BUN/Creatinine Ratio 18.3, Glucose 103, Calcium 8.6 Micro: Microbiology 12/02/23 13:30 Blood Culture (Wb) - Anticubital Right Blood Culture - Final 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 12/02/23 13:20 Blood Culture (Wb) - Anticubital Right Blood Culture - Final Escherichia coli 12/02/23 14:36 Urine, Clean Catch Urine Culture - Final Escherichia coli 12/02/23 13:30 Mucosa - Nose SARS-CoV-2, Influenza & RSV (PCR) - Final Physical Exam Const alert, oriented x3 and no apparent distress Constitutional Narrative: General Appearance: cooperative HEENT normocephalic, head/scalp atraumatic, moist oral mucous membranes and oropharynx normal Eyes PERRL and EOMs intact bilaterally Neck no lymphadenopathy Lymph Lymphatic: no lymphadenopathy noted and no lymphedema noted Resp Resp Narrative: diminished breath sounds basally, few crackles. on room air. Cardio regular rate, regular rhythm, S1 normal heart sound, S2 normal heart sound and no murmurs GI normal to inspection, nondistended, normoactive bowel sounds, soft to palpation, non-tender and non-distended Extremity normal capillary refill, no clubbing, cyanosis or edema and no calf tenderness Extremity Narrative: mild tenderness in left groin area General Extremity: no tenderness to palpation of joints or extremities Skin General Skin Exam: no breakdown Neuro CN's II-XII intact bilaterally, no focal motor deficits, no sensory deficits noted and deep tendon reflexes 2+ bilaterally Motor Exam: strength 5/5 throughout and general weakness Psych thought process normal, cooperative and affect normal Appearance: appropriate Assessment & Plan Assessment/Plan (1) Acute kidney injury: (2) Paroxysmal atrial fibrillation: (3) Sepsis: (4) Non-STEMI (non-ST elevated myocardial infarction): PLAN: Plan #Nonstemi * cardiology on board. * troponins elevated * on aspirin, lipitor and zetia. * heparin drip discontinued due to thrombocytopenia * #Acute encephalopathy due to UTI and probable pneumonia * on IV rocephin and azithromycin * get urine cultures * wbc is down to 12.5 today, continues to trend downwards. * Urine cultures grew E. coli * #Thrombocytopenia * has chronic thrombocytopenia * wbc is down to 78 from 86; was 125 on admission. * platelets didnt drop any further overnight and is 78 today. * platelets have dropped significantly * Heparin drip discontinued. * #FRANKLIN: * Creatinine today is 1.53. Trending down slowly. * Baseline creatinine 0.7. Will continue to hydrate gently. 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 Heparin drip discontinued due to thrombocytopenia. Charges/Coding Visit Charges Inpatient E&M: 75750 Subs Hosp L2
[2023-12-05] MEDS: 0.9% Normal Saline (1000mL) 1,000 ML 125 ML IV ×2 (14:48→21:56)
[2023-12-05] MEDS: NETARSUDIL MESYLAT/LATANOPROST 2.5 ML DROPS 1 ML EACH EYE (21:50)
[2023-12-05] MEDS: Atorvastatin Calcium 20 MG Tablet PO (21:50)
[2023-12-06] VITALS (7 sets, daily range): BP systolic 126–140; BP diastolic 68–70; PULSE 60–92; RESP 16–20; TEMP 36.3–37; O2SAT 95–98; BMI 31.4
[2023-12-06] MEDS: Piperacil/Tazobactam 3.375 GM in 0.9% Normal Saline (50mL MB+) 50 ML IV ×3 (05:57→21:59)
[2023-12-06] MEDS: Acetaminophen 325 MG Tablet 650 MG PO (06:00)
[2023-12-06 06:38] LABS: Absolute Lymphocyte Count 1.72 X10^3/uL (0.83-4.51); Absolute Neutrophil Count 7.1 X10^3/uL (2.0-7.7); Basophil# 0.03 X10^3/uL; Basophil% 0.3 % (0-1); Eosinophil# 0.22 X10^3/uL; Eosinophils% 2.1 % (0-5); Hematocrit 30.3 % (40-54); Hemoglobin 9.7 g/dL (13.0-16.5); Lymphocyte # 1.72 X10^3/ul (0.83-4.51); Lymphocyte % 16.5 % (19-41); Mean Corpuscular Hgb 30.1 pg (27.0-32.0); Mean Corpuscular Volume 94.1 fL (80-94); Mean Platelet Vol. 11.5 fl (6.2-12.0); Monocyte% 12.5 % (0-10); NRBC Flagged by Analyzer 0 % (0-5); Neutrophil # 7.07 X10^3/uL (2.7-7.7); POSITIVE COUNT YES; Platelet Count 95 K/mm3 (150-450); RBC Distribution Width CV 15.7 % (11.6-14.6); RBC Distribution Width SD 54.4 fl (35.1-43.9); Red Blood Count 3.22 M/mm3 (4.6-6.2); White Blood Count 10.4 K/mm3 (4.4-11.0)
[2023-12-06 07:03] LABS: Anion Gap 4 (5-15); BUN 25 mg/dL (7-18); BUN/Creat Ratio 17.5 RATIO (10-20); Calcium,Total 8.7 mg/dL (8.5-10.1); Chloride 109 mmol/L (98-107); Creatinine, Serum 1.43 mg/dL (0.70-1.30); EST Glomerular Filtration Rate 50 mL/min (>60); Est Glom Filt Rate - Afr Amer 60 mL/min (>60); Estimated Creatinine Clearance 46.51 ml/min; Glucose 96 mg/dL (74-106); Potassium 4.2 mmol/L (3.5-5.1); Sodium Level 139 mmol/L (136-145)
[2023-12-06] MEDS: Budesonide Respules 0.5 MG/2 ML AMPUL.NEB. INHALATION ×2 (07:05→19:05)
[2023-12-06] MEDS: Albuterol 2.5 MG/3 ML VIAL.NEB. INHALATION ×3 (07:05→19:05)
[2023-12-06] MEDS: Ezetimibe 10 MG Tablet PO (08:54)
[2023-12-06] MEDS: Aspirin E.C. 81 MG Tablet PO (08:54)
[2023-12-06] MEDS: Famotidine 20 MG Tablet PO (08:54)
[2023-12-06] MEDS: Ursodiol 250 MG Tablet 500 MG PO ×2 (08:54→16:23)
[2023-12-06] MEDS: Finasteride 5 MG Tablet PO (08:55)
[2023-12-06] MEDS: BRIMONIDINE TARTRATE 5 ML DROPS 1 ML OPHTHALMIC ×2 (08:55→21:56)
[2023-12-06] MEDS: Nystatin Powder 15gm Bottle 1 APPLIC TOPICAL ×2 (08:55→21:58)
[2023-12-06] MEDS: Furosemide 40 MG Tablet PO (09:00)
--- NOTE | 2023-12-06 09:34 | CASEMGMT ---
BRANT met with patient and he confirmed he would like to go to [facility]. BRANT let patient know that TCU can take him once his insurance approves him. Patient thanked BRANT for letting him know. BRANT asked Meagan to start the pre-cert for patient. Plan: d/c to [facility] pending insurance approval. Malka LIM
[2023-12-06] MEDS: Azithromycin 500 MG in Dextrose 5%-Water (250mL Bag) 250 ML 250 MG IV (09:50)
--- NOTE | 2023-12-06 11:58 | US_ITS ---
PROCEDURE: RENAL ULTRASOUND - COMPLETE REASON FOR EXAM: Male, 88 years old. Possible kidney stone or hydronephrosis TECHNIQUE: Ultrasound evaluation of the bilateral kidneys was performed with real-time ultrasonography and static grayscale imaging. COMPARISON: None. FINDINGS: RIGHT KIDNEY: Normal location of the right kidney which is normal in size. The right kidney measures 12.6 x 6.4 x 7 cm. There is a normal cortex of the right kidney. The renal cortex measures 1.6 cm. There is no right renal mass or cyst. There are no right renal calculi. There is moderate hydronephrosis of the right kidney. DISTAL RIGHT URETER: There is non-visualization of the distal right ureter. There is no demonstrated right ureterovesical junction calculus. There is no demonstrated right ureteral jet. LEFT KIDNEY: Normal location of the left kidney which is normal in size. The left kidney measures 11 x 5.4 x 6.3 cm. There is a normal cortex of the left kidney. The renal cortex measures 1.3 cm. There is no left renal mass or cyst. There are no left renal calculi. There is no left hydronephrosis. DISTAL LEFT URETER: There is non-visualization of the distal left ureter. There is no demonstrated left ureterovesical junction calculus. There is a visualized left ureteral jet. BLADDER: The bladder is not well distended and has a prevoid volume of 66 cc. US/Kidney and Bladder IMPRESSION: Moderate right hydronephrosis. CT scan of the abdomen pelvis might be further value to rule out distal ureteral obstruction or stone. Electronically Signed: Pepito Cantor MD at 15:00 EDT ,
--- NOTE | 2023-12-06 12:13 | PN.CARD_ITS ---
Subjective Subjective Denies any complaints today. Sitting up in chair. Objective Data Vital Signs: Vital Signs Temp Pulse Resp BP Pulse Ox O2 Del Method O2 Flow Rate 97.3 F L 92 18 140/68 H 98 Room Air 3 12/06/23 09:30 12/06/23 09:30 12/06/23 09:30 12/06/23 09:30 12/06/23 09:30 12/06/23 09:30 12/05/23 20:07 Oxygen Flow Rate (L/min) 3 Oxygen Delivery Method Room Air Weight: 232 lb 2.348 oz Body Mass Index (BMI) 31.4 Intake & Output: Intake and Output for Last 24 Hours 12/04/23 12/05/23 12/06/23 23:59 23:59 23:59 Intake Total 2858.33 / 2858.33 2675.84 / 2675.84 100 / 100 Output Total 3125 / 3125 1100 / 1475 925 / 925 Balance -266.67 / -266.67 1575.84 / 1200.84 -825 / -825 Lab / Micro Data 12/06/23 06:05 12/06/23 06:05 Labs: Laboratory Results - last 24 hr 12/06/23 06:05: WBC 10.4, RBC 3.22 L, Hgb 9.7 L, Hct 30.3 L, MCV 94.1 H, MCH 30.1, MCHC 32.0, RDW Std Deviation 54.4 H, RDW Coeff of Angelia 15.7 H, Plt Count 95 L, MPV 11.5, Immature Gran % (Auto) 0.600, Neut % (Auto) 68.0, Lymph % (Auto) 16.5 L, [place] % (Auto) 12.5 H, Eos % (Auto) 2.1, Baso % (Auto) 0.3, Absolute Neuts (auto) 7.1, Absolute Lymphs (auto) 1.72, Nucleated RBC % 0, Sodium 139, Potassium 4.2, Chloride 109 H, Carbon Dioxide 26.0, Anion Gap 4 L, BUN 25 H, Creatinine 1.43 H, Estim Creat Clear Calc 46.51, Est GFR (MDRD) Af Amer 60, Est GFR (MDRD) Non-Af 50 L, BUN/Creatinine Ratio 17.5, Glucose 96, Calcium 8.7 Cardiology Labs/Tests 12/06/23 06:05: WBC 10.4, RBC 3.22 L, Hgb 9.7 L, Hct 30.3 L, MCV 94.1 H, MCH 30.1, MCHC 32.0, Plt Count 95 L, MPV 11.5, Immature Gran % (Auto) 0.600, Neut % (Auto) 68.0, Lymph % (Auto) 16.5 L, [place] % (Auto) 12.5 H, Eos % (Auto) 2.1, Baso % (Auto) 0.3, Absolute Neuts (auto) 7.1, Nucleated RBC % 0, Sodium 139, Potassium 4.2, Chloride 109 H, Carbon Dioxide 26.0, Anion Gap 4 L, BUN 25 H, Creatinine 1.43 H, Est GFR (MDRD) Af Amer 60, Est GFR (MDRD) Non-Af 50 L, BUN/Creatinine Ratio 17.5, Glucose 96, Calcium 8.7 Rhythm: EKG: ECHO: Stress Test: Cardiac Cath: PCI: CT Surgery: Holter monitor: EPS: PPM: CXR: Chest CT Scan: Radiography Diagnostic Testing: Radiology Impression Echocardiogram 12/03/23 11:01 Interpretation Summary Mild concentric left ventricular hypertrophy. Posterior hypokinesis. Estimated ejection fraction 45%. Stage II diastolic dysfunction. The left atrium is severely enlarged. Moderate mitral annular calcification. Moderate (2+) posteriorly directed mitral valve insufficiency. Moderate (2+) eccentric tricuspid valve insufficiency. Right ventricular s ystolic pressure estimated to be 60 mmHg. Moderate diffuse aortic valve calcification. Mild aortic stenosis. Mild-Moderate (1-2+) aortic valve insufficiency. Mild to moderately dilated aortic root. Ordering Physician: Vanessa Simmons Referring Physician: Addi Mario Performed By: Gale Tarango RCS Physical Exam Narrative Comfortable. No apparent distress. Heart sounds 1 and 2 noted. 3/6 systolic murmur at base and 2/6 systolic murmur at apex. Chest clear to auscultation bilaterally. Alert oriented. No ankle edema. Assessment & Plan Assessment/Plan (1) Non-STEMI (non-ST elevated myocardial infarction): PLAN: Status post coronary angiography. No flow-limiting lesions noted. Troponin elevation likely type II. (2) CAD (coronary artery disease): PLAN: History of stent to the mid LAD. See #1 above. (3) Sepsis: PLAN: Underlying UTI and possible pneumonia. On antibiotics. Follow as per internal medicine. (4) Aortic stenosis: QUALIFIERS: Cardiac valve disease etiology: nonrheumatic Qualified Code(s): I35.0 - Nonrheumatic aortic (valve) stenosis PLAN: Mild aortic valve stenosis on echocardiogram. Periodic echo and clinical surveillance. (5) Mitral regurgitation: PLAN: Periodic echo and clinical surveillance. (6) Cardiomyopathy: PLAN: LVEF 45%. Nonischemic. Recommend repeat echo in 2 months. Start low- dose beta-blockers. Angiotensin receptor blockers when creatinine stable. (7) Paroxysmal atrial fibrillation: PLAN: Sinus rhythm here in the hospital. Was on apixaban at home. Resume. (8) Primary biliary cirrhosis: PLAN: As per internal medicine/GI. (9) Hyperlipidemia: QUALIFIERS: Hyperlipidemia type: unspecified Qualified Code(s): E78.5 - Hyperlipidemia, unspecified PLAN: On atorvastatin. (10) Thrombocytopenia: PLAN: Patient has history of chronic thrombocytopenia. Likely secondary to his hepatic disease. Platelet count mildly improved. Up to 95,000 today. (11) Acute kidney injury: PLAN: Monitor. Creatinine mildly improved from yesterday.
--- NOTE | 2023-12-06 12:33 | CASEMGMT ---
Addendum entered by Malka Kwon 12/06/23 14:52: SW also notified patient and his that patient was approved for TCU. Plan: d/c to [facility] under skilled level of care. Malka LIM Original Note: Insurance approved patient to go to [facility]. BRANT notified physician. Malka LIM
[2023-12-06 14:04] LABS: Pathologist Review Reviewed
--- NOTE | 2023-12-06 14:26 | CL.D_ITS ---
Patient Name: ARNULFO URST Study Date: 12/05/2023 Performing: Vanessa Simmons MD Ht: 72 inches 182.88 cm : 1935 Wt: 232.15 lbs 105.3 kg Age: 88 Gender: male BSA: 2.27 PROCEDURE(S) PERFORMED DC02-(55076)[facility] CLINICAL PROFILE AND INDICATIONS Indications: ACS > 24 hrs Heart Failure: None Angina Classification Anginal Classification w/in 2 Weeks: No symptoms CAD Presentations: Non-STEMI. Symptom onset Date/Time: Time Not Available CONCLUSIONS 50% Mid LAD 40% Prox RCA; 50% ostial RPDA RECOMMENDATIONS Medical therapy DESCRIPTION OF PROCEDURE The patient arrived to the procedure lab. The risks and benefits of the procedure as well as a full description of our services here and current unavailability of surgical backup were fully explained to the patient and/or their significant other prior to the catheterization. The Timeout was completed, verifying the correct patient and procedure. The patient's procedural site was prepped and draped in the usual fashion. Local anesthetic was given subcutaneously to right radial region with Lidocaine 2%. Using a modified Seldinger technique, and ultrasound guidance,arterial access was obtained via the right radial artery, a 6Fr sheath was inserted. Left Coronary Artery selective angiography was performed in multiple views using a 5 Fr. 4.0 [place] catheter. Right Coronary Artery selective angiography was then performed in multiple views using a 5 Fr. 4.0 [place] catheter.The arterial sheath was pulled and a TR Band was applied for hemostasis, 12cc of air CORONARY ANGIOGRAPHY DOMINANCE: Right Dominant LEFT MAIN: Angiographically normal LEFT ANTERIOR DESCENDING ARTERY: LAD: Tubular 50% Mid lesion in LAD In-Stent Restenosis 20% Proximal lesion in LAD RIGHT CORONARY ARTERY: RCA: Tubular 40% Proximal lesion in RCA Luminal Irregularities 10% Mid lesion in RCA RT PDA: Tubular 50% Ostial lesion in RT PDA COMPLICATIONS No Complications PROCEDURE MEDICATIONS Versed 1 mg IV Fentanyl 50 mcg IV Versed 1 mg IV Oxygen: 2 L/min via nasal cannula Heparin given IA 12/05/2023 13:59:50 Verapamil 2.5mg, Ntg 200mcgs, 2000 units of Heparin given IA 12/05/2023 13:59:50 SUMMARY OF HEMODYNAMIC DATA Time AIR REST ECG 13:42:22 AO 142/80 (103) SA 14:01:51 Signed By Vanessa Simmons MD On 12/05/2023 14:15:18 Vanessa Simmons MD
--- NOTE | 2023-12-06 15:29 | PN_ITS ---
Subjective Subjective Patient seen and examined. He felt well and had no active complaints. Review of systems otherwise negative. Creatinine is 1.43 and is still not trended downwards. Blood cultures growing E. coli. His white cell count has trended down. He had cardiac cath yesterday which showed mild CAD with recommendation for medical management. Objective Data Objective Data Vital Signs: Vital Signs Temp Pulse Resp BP Pulse Ox O2 Del Method O2 Flow Rate 97.3 F L 78 18 140/68 H 98 Room Air 3 12/06/23 09:30 12/06/23 13:43 12/06/23 13:43 12/06/23 09:30 12/06/23 09:30 12/06/23 09:30 12/05/23 20:07 Oxygen Flow Rate (L/min) 3 Oxygen Delivery Method Room Air Weight: 232 lb 2.348 oz Body Mass Index (BMI) 31.4 Intake & Output: Intake and Output for Last 24 Hours 12/04/23 12/05/23 12/06/23 23:59 23:59 23:59 Intake Total 2858.33 / 2858.33 2675.84 / 2675.84 1155 / 1155 Output Total 3125 / 3125 1100 / 1475 925 / 925 Balance -266.67 / -266.67 1575.84 / 1200.84 230 / 230 Lab / Micro Data 12/06/23 06:05 12/06/23 06:05 Labs: Laboratory Results - last 24 hr 12/03/23 06:15: Diff Path Review Reviewed 12/06/23 06:05: WBC 10.4, RBC 3.22 L, Hgb 9.7 L, Hct 30.3 L, MCV 94.1 H, MCH 30.1, MCHC 32.0, RDW Std Deviation 54.4 H, RDW Coeff of Angelia 15.7 H, Plt Count 95 L, MPV 11.5, Immature Gran % (Auto) 0.600, Neut % (Auto) 68.0, Lymph % (Auto) 16.5 L, [place] % (Auto) 12.5 H, Eos % (Auto) 2.1, Baso % (Auto) 0.3, Absolute Neuts (auto) 7.1, Absolute Lymphs (auto) 1.72, Nucleated RBC % 0, Sodium 139, Potassium 4.2, Chloride 109 H, Carbon Dioxide 26.0, Anion Gap 4 L, BUN 25 H, Creatinine 1.43 H, Estim Creat Clear Calc 46.51, Est GFR (MDRD) Af Amer 60, Est GFR (MDRD) Non-Af 50 L, BUN/Creatinine Ratio 17.5, Glucose 96, Calcium 8.7 Micro: Microbiology 12/02/23 13:30 Blood Culture (Wb) - Anticubital Right Blood Culture - Final GNR lactose carbon printer 12/02/23 13:20 Blood Culture (Wb) - Anticubital Right Blood Culture - Final Escherichia coli 12/02/23 14:36 Urine, Clean Catch Urine Culture - Final Escherichia coli 12/02/23 13:30 Mucosa - Nose SARS-CoV-2, Influenza & RSV (PCR) - Final Radiography Diagnostic Testing: Radiology Impression Renal Ultrasound 12/06/23 11:58 IMPRESSION: Moderate right hydronephrosis. CT scan of the abdomen pelvis might be further value to rule out distal ureteral obstruction or stone. Electronically Signed: Pepito Cantor MD at 15:00 EDT , Physical Exam Const alert, oriented x3, no apparent distress and well nourished Constitutional Narrative: General Appearance: cooperative and well developed HEENT normocephalic, head/scalp atraumatic, moist oral mucous membranes and oropharynx normal Eyes PERRL and EOMs intact bilaterally Neck no lymphadenopathy Lymph Lymphatic: no lymphadenopathy noted and no lymphedema noted Resp Resp Narrative: diminished breath sounds basally, few crackles. on room air. Cardio regular rate, regular rhythm, S1 normal heart sound, S2 normal heart sound and no murmurs GI normal to inspection, nondistended, normoactive bowel sounds, soft to palpation, non-tender and non-distended Extremity normal capillary refill, no clubbing, cyanosis or edema and no calf tenderness General Extremity: no tenderness to palpation of joints or extremities Skin General Skin Exam: no breakdown Neuro CN's II-XII intact bilaterally, no focal motor deficits, no sensory deficits noted and deep tendon reflexes 2+ bilaterally Motor Exam: strength 5/5 throughout and general weakness Psych thought process normal, cooperative and affect normal Appearance: appropriate Assessment & Plan Assessment/Plan (1) Acute kidney injury: (2) Paroxysmal atrial fibrillation: (3) Sepsis: (4) Non-STEMI (non-ST elevated myocardial infarction): PLAN: Plan #Nonstemi * cardiology on board. * troponins elevated * on aspirin, lipitor and zetia. 2D echo showed mild concentric left ventricular hypertrophy with posterior hypokinesis and EF of 45% with stage II diastolic dysfunction and severely enlarged left atrium. 2+ mitral valve and tricuspid valve insufficiency and right ventricular stock pressure of 60 mmHg. Mild aortic stenosis. * heparin drip discontinued due to thrombocytopenia * Had cardiac cath which showed mild cardiac disease with plan for medical management. On aspirin and statin. Also on Eliquis. On carvedilol. * * #Acute encephalopathy due to UTI and probable pneumonia * on IV rocephin and azithromycin * get urine cultures * Urine cultures grew E. coli * Blood culture growing E. coli. Currently on IV ceftriaxone. White cell count trended down to 10. Plan is for a total 10-day course of treatment. * #Thrombocytopenia * has chronic thrombocytopenia * Platelets are trending up in a 95 today. Was 78 yesterday. Will continue monitoring. * #Paroxysmal A-fib: On carvedilol. Has been in sinus rhythm since admission. On Eliquis. #FRANKLIN: * Creatinine today is 21.43. Creatinine is not improving. * In light of E. coli bacteremia, this was discussed with ID. Renal ultrasound obtained. This discussion showed right-sided hydronephrosis * Will get a CT of the abdomen and pelvis without contrast to see if there is a kidney stone that is causing the obstruction. 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 Disposition: For DC to TCU once he is medically stable. Charges/Coding Visit Charges Inpatient E&M: 41181 Subs Hosp L2
--- NOTE | 2023-12-06 15:29 | CT_ITS ---
We are attempting to reach an attending provider to discuss findings. An addendum with communication details will be sent when the communication is complete. STUDY: CT ABDOMEN AND PELVIS WITHOUT CONTRAST REASON FOR EXAM: Male, 88 years old. kidney stone RADIATION DOSAGE (If Supplied By Facility): CTDIvol = ( 20.78 ) mGy, DLP = ( 1189.00 ) mGycm TECHNIQUE: Transaxial images were obtained from the dome of the diaphragm to the symphysis pubis without oral contrast, and without intravenous contrast. Sagittal and coronal images were reconstructed. Individualized dose optimization techniques were used for this CT. COMPARISON: Renal ultrasound from today. Abdominal ultrasound December 26, 2015. FINDINGS: Left lower lobe infiltrate and small effusion. Calcific coronary artery disease and aortic valve disease. Cardiomegaly. 18 mm simple cyst right lobe of the liver. Liver appears somewhat nodular. Gallstones noted. Normal spleen. Normal pancreas. Normal bilateral adrenal glands. Moderate right hydronephrosis due to a 9 mm stone at the ureteral pelvic junction. Increased density within the right renal pelvis. For Normal left kidney. Normal visualized stomach. Multiple air-fluid levels noted in the small bowel. Air-fluid levels noted throughout the colon. Right hemicolectomy. Calcified plaque along the aorta and its branches. Normal inferior vena cava. Normal retroperitoneum. Bladder is decompressed. Bilateral fat-containing inguinal hernias. Increased density measuring 2.7 cm and fullness left iliac muscle. Fat-containing periumbilical hernia. Normal osseous structures. CT/Abdomen/Pelvis without Cont IMPRESSION: Left lower lobe infiltrate and effusions. Cholelithiasis. Moderate right hydronephrosis due to a 9 mm UPJ stone. Ileus. Possible left pelvic sidewall retroperitoneal hematoma. Other incidental findings as above. Electronically Signed: Arian Stokes MD at 19:20 EDT ,
--- NOTE | 2023-12-06 15:45 | CASEMGMT ---
SW let patient know he will not be leaving today. Malka Kwon PATENT PROSECUTION ATTORNEY RAPHAEL
--- NOTE | 2023-12-06 20:06 | PN.HOSP_ITS ---
Hospitalist Note CT A/P w/ left lower lobe infiltrate and effusions, cholelithiasis, moderate right hydronephrosis due to a 9 mm UPJ stone, ileus, possible small left pelvic sidewall retroperitoneal hematoma. Reviewed imaging with radiology and they note that if there is a small hematoma is very small and subtle but cannot absolutely rule it out and they recommended potentially reimaging at a later date. Given these findings will request consultation with urology. Discussed and reviewed these imaging findings with cardiology as patient just had a cardiac catheterization today and they are amenable to holding his aspirin and Eliquis therapy. Patient is already on antibiotic therapy at this time in regards to left lower lobe infiltrate. Patient CBC will be trended and patient may require a future CT imaging to reassess that region again. If hemoglobin drops or any concerns arise low threshold to involve solutions delivery consultant.
[2023-12-06 21:10] LABS: Hemoglobin 9.7 g/dL (13.0-16.5)
--- NOTE | 2023-12-06 21:18 | CON.PCM.UR_ITS ---
Assessment & Plan Assessment/Plan (1) Ureteral calculi: PLAN: Right ureteral calculi. NPO plan for cysto right stent tomorrow. HPI Consult Data Date of Consult: 12/06/23 HPI Narrative Reason for Consultation: Right kidney stone HPI Narrative: ARNULFO RUST, is a 88 M who presents to hospital with heart problems, had cardiac cath done, Ct scan post demonstrates a 9mm Right UPJ stone with obstruction. pt. is o/w stable. [facility] Medical History Advanced directives, counseling/discussion Anemia Anginal equivalent Aortic stenosis Asthma Atherosclerosis of coronary artery of [place] heart without angina pectoris Atrial fibrillation BPH (benign prostatic hyperplasia) Bradycardia Cholelithiasis without obstruction Closed vertical fracture of left patella Degenerative disc disease, cervical Dermatitis Dizziness Essential hypertension Extensor tenosynovitis of right wrist Fall Fracture of triquetrum of left wrist Fracture of triquetrum of right wrist Glaucoma History of colon polyps History of pneumonia History of skin cancer Hyperlipidemia Hypertension Hyponatremia Iron deficiency anemia Left facial swelling Liver disease Memory impairment Migraines Multiple fractures New onset atrial fibrillation Non-smoker Nonrheumatic aortic valve stenosis Obesity Orthostatic hypotension Osteoarthritis Paroxysmal atrial fibrillation Physical debility Primary biliary cirrhosis Psoriasis Restrictive airway disease Rheumatoid arthritis Rheumatoid arthritis Right foot pain Seasonal allergies Sinus bradycardia Thrombocytopenia Vitamin D deficiency Home Medications aspirin 81 mg tablet,delayed release 81 mg PO DAILY@0800 heart health 12/06/16 [History Last Taken 12/02/23] travoprost 0.004 % eye drops 1 drp EACH EYE QHS glaucoma 06/02/19 [History Last Taken 06/06/20] magnesium oxide (Tobin) 1,500 mg PO QHS 08/05/20 [History Last Taken 12/01/23] cholecalciferol (vitamin D3) 50 mcg (2,000 unit) tablet 50 mcg PO DAILY 11/19/20 [History Last Taken 12/01/23] cyanocobalamin (vitamin B-12) 1,000 mcg capsule 1,000 mcg PO DAILY 11/19/20 [History Last Taken 12/01/23] Disability Placard #1 ea 12/01/21 [Rx Last Taken Unknown] Arthritis Compound 1 click topical DAILY PRN Pain #60 CLICKS 02/08/22 [Rx Last Taken Unknown] cetirizine 10 mg capsule 10 mg PO DAILY PRN allergy 10/05/22 [History Last Taken 12/01/23] apixaban 5 mg tablet (Eliquis) 5 mg PO BID #60 tabs 12/08/22 [Rx Last Taken 12/02/23] albuterol sulfate 90 mcg/actuation aerosol inhaler (Ventolin HFA) 2 puff inhalation Q4H PRN Asthma #8.5 grams 04/28/23 [Rx Last Taken Unknown] nebulizer and compressor (Portable Nebulizer System) #1 ea 04/30/23 [Rx Last Taken Unknown] guaifenesin 1,200 mg tablet, extended release 12 hr 1,200 mg PO Q12H #60 tabs 06/29/23 [Rx Last Taken 12/02/23] atorvastatin 20 mg tablet 20 mg PO QHS cholesterol #90 tabs 07/07/23 [Rx Last Taken 12/01/23] ursodiol 500 mg tablet See Rx Instructions .Route .COMPLEX #180 tabs 08/03/23 [Rx Last Taken 12/02/23] famotidine 20 mg tablet 20 mg PO DAILY #90 tabs 08/10/23 [Rx Last Taken 12/02/23] brimonidine 0.1 % eye drops 1 drp ophthalmic (eye) DAILY 08/15/23 [History Last Taken 12/02/23] budesonide-formoterol HFA 160 mcg-4.5 mcg/actuation aerosol inhaler (Symbicort) 2 puff inhalation BID 08/15/23 [History Last Taken 12/02/23] finasteride 5 mg tablet 5 mg PO DAILY #90 tabs 08/18/23 [Rx Last Taken 12/02/23] ezetimibe 10 mg tablet 10 mg PO DAILY heart health #90 tabs 09/15/23 [Rx Last Taken 12/02/23] nitroglycerin 0.4 mg sublingual tablet 0.4 mg sublingual Q5-15M PRN chest pain #25 tabs 09/15/23 [Rx Last Taken Unknown] ferrous sulfate 325 mg (65 mg iron) tablet 325 mg PO QODAY #90 tabs 11/23/23 [Rx Last Taken 12/01/23] ezpaqeri-lga-gomau acid 0.4 mg-lycopene 300 mcg-lutein 250 mcg tablet (Centrum Silver) 1 tab PO DAILY 12/02/23 [History Last Taken 12/01/23] netarsudil 0.02 %-latanoprost 0.005 % eye drops (Rocklatan) 1 drp ophthalmic (eye) QHS 12/02/23 [History Last Taken 12/02/23] Allergy/AdvReac Type Severity Reaction Status Date / Time metoprolol [From Lopressor] Allergy Intermediate Shortness Verified 10/20/23 09:49 of breath Penicillins Allergy Rash Verified 10/20/23 09:49 Family History Father Hypertension Grandmother Hypertension Other Alcoholism Liver disease Surgical History History of appendectomy History of cataract extraction History of colon resection History of coronary artery stent placement History of partial colectomy (~2003) Presence of stent in coronary artery Social History Smoking Status: Never smoker alcohol intake: current alcohol intake frequency: holidays/special occasions only substance use type: does not use caffeine: No what type of physical activity do you participate in: weight training Physical Exam Const alert and oriented x3 General Appearance: cooperative HEENT normocephalic, head/scalp atraumatic, EAC's normal and TM's normal bilaterally Eyes PERRL and EOMs intact bilaterally Pupil: sluggish Neck no lymphadenopathy, supple and no JVD General: trachea midline Lymph Lymphatic: no lymphadenopathy noted, lymphedema and lymphadenopathy Resp normal respiratory effort, normal air movement and clear to auscultation bilaterally Cardio regular rate, regular rhythm and peripheral pulses 2+ throughout GI soft to palpation, non-tender and non-distended Extremity normal capillary refill and no clubbing, cyanosis or edema General Extremity: no tenderness to palpation of joints or extremities Skin no rashes or lesions noted General Skin Exam: turgor normal Lesions: no lesions Rashes: no rashes Neuro CN's II-XII intact bilaterally Speech: speech normal Motor Exam: strength 5/5 throughout; Negative for general weakness Psych thought process normal, cooperative and affect normal Appearance: appropriate Medical Records Data Attestation: I reviewed the patient's medical records Lab / Micro Data 12/06/23 20:38 12/06/23 06:05 Labs: Laboratory Results - last 24 hr 12/03/23 06:15: Diff Path Review Reviewed 12/06/23 06:05: WBC 10.4, RBC 3.22 L, Hgb 9.7 L, Hct 30.3 L, MCV 94.1 H, MCH 30.1, MCHC 32.0, RDW Std Deviation 54.4 H, RDW Coeff of Angelia 15.7 H, Plt Count 95 L, MPV 11.5, Immature Gran % (Auto) 0.600, Neut % (Auto) 68.0, Lymph % (Auto) 16.5 L, [place] % (Auto) 12.5 H, Eos % (Auto) 2.1, Baso % (Auto) 0.3, Absolute N euts (auto) 7.1, Absolute Lymphs (auto) 1.72, Nucleated RBC % 0, Sodium 139, Potassium 4.2, Chloride 109 H, Carbon Dioxide 26.0, Anion Gap 4 L, BUN 25 H, Creatinine 1.43 H, Estim Creat Clear Calc 46.51, Est GFR (MDRD) Af Amer 60, Est GFR (MDRD) Non-Af 50 L, BUN/Creatinine Ratio 17.5, Glucose 96, Calcium 8.7 12/06/23 20:38: Hgb 9.7 L Imaging Radiology Impression Renal Ultrasound 12/06/23 11:58 IMPRESSION: Moderate right hydronephrosis. CT scan of the abdomen pelvis might be further value to rule out distal ureteral obstruction or stone. Electronically Signed: Pepito Cantor MD at 15:00 EDT , Abdomen/Pelvis CT 12/06/23 15:29 IMPRESSION: Left lower lobe infiltrate and effusions. Cholelithiasis. Moderate right hydronephrosis due to a 9 mm UPJ stone. Ileus. Possible left pelvic sidewall retroperitoneal hematoma. Other incidental findings as above. Electronically Signed: Arian Stokes MD at 19:20 EDT , ADDENDUM: 12/06/232008 IMPRESSION: Left lower lobe infiltrate and effusions. Cholelithiasis. Moderate right hydronephrosis due to a 9 mm UPJ stone. Ileus. Possible left pelvic sidewall retroperitoneal hematoma. Other incidental findings as above. N.B. : The above Results were Read Back by Arian Stokes MD to Sally Zelaya MD, and understanding confirmed on 12/06/2023 20:02:30 (ET). Electronically Signed: Arian Stokes MD at 19:20 EDT ,
[2023-12-06] MEDS: Atorvastatin Calcium 20 MG Tablet PO (21:57)
[2023-12-06] MEDS: Carvedilol 3.125 MG TABLET PO (21:57)
[2023-12-06] MEDS: NETARSUDIL MESYLAT/LATANOPROST 2.5 ML DROPS 1 ML EACH EYE (21:58)
[2023-12-07] VITALS (13 sets, daily range): BP systolic 113–143; BP diastolic 58–83; PULSE 60–80; RESP 15–20; TEMP 36.2–36.8; O2SAT 94–100; BMI 31.1
[2023-12-07] MEDS: Acetaminophen 325 MG Tablet 650 MG PO (00:05)
--- NOTE | 2023-12-07 05:55 | EKG12_ITS ---
Test Reason : AM EKG Blood Pressure : / mmHG Vent. Rate : 073 BPM Atrial Rate : 073 BPM P-R Int : 250 ms QRS Dur : 090 ms QT Int : 402 ms P-R-T Axes : 091 -23 066 degrees QTc Int : 442 ms Sinus rhythm with 1st degree A-V block with Premature supraventricular complexes and with occasional Premature ventricular complexes Minimal voltage criteria for LVH, may be normal variant ( R in aVL ) Borderline ECG When compared with ECG of 02-DEC-2023 13:29, Previous ECG has undetermined rhythm, needs review Confirmed by Dash Schmidt ([id number]), online editor AN KWON ([id number]) on 12/08/2023 11:09:41 AM Referred By: LEIF Confirmed By:Dash Schmidt
[2023-12-07] MEDS: Piperacil/Tazobactam 3.375 GM in 0.9% Normal Saline (50mL MB+) 50 ML IV ×2 (06:16→17:23)
[2023-12-07 07:09] LABS: Absolute Lymphocyte Count 1.72 X10^3/uL (0.83-4.51); Absolute Neutrophil Count 5.5 X10^3/uL (2.0-7.7); Basophil# 0.03 X10^3/uL; Basophil% 0.3 % (0-1); Eosinophil# 0.25 X10^3/uL; Eosinophils% 2.7 % (0-5); Hematocrit 29.4 % (40-54); Hemoglobin 9.5 g/dL (13.0-16.5); Lymphocyte # 1.72 X10^3/ul (0.83-4.51); Lymphocyte % 18.8 % (19-41); Mean Corp Hgb Conc 32.3 g/dL (32-36); Mean Corpuscular Hgb 30.3 pg (27.0-32.0); Mean Corpuscular Volume 93.6 fL (80-94); Mean Platelet Vol. 11.5 fl (6.2-12.0); Monocyte# 1.57 X10^3/uL; Monocyte% 17.2 % (0-10); NRBC Flagged by Analyzer 0 % (0-5); Neutrophil # 5.54 X10^3/uL (2.7-7.7); Neutrophil % 60.6 % (47-70); POSITIVE DIFFERENTIAL YES; Platelet Count 116 K/mm3 (150-450); RBC Distribution Width CV 15.3 % (11.6-14.6); RBC Distribution Width SD 52.3 fl (35.1-43.9); Red Blood Count 3.14 M/mm3 (4.6-6.2); White Blood Count 9.2 K/mm3 (4.4-11.0)
[2023-12-07 07:13] LABS: Differential Indicated SCAN CRITERIA MET
[2023-12-07] MEDS: Albuterol 2.5 MG/3 ML VIAL.NEB. INHALATION ×3 (07:20→20:16)
[2023-12-07] MEDS: Budesonide Respules 0.5 MG/2 ML AMPUL.NEB. INHALATION ×2 (07:20→20:17)
[2023-12-07 08:00] LABS: Differential Comment SCANNED
[2023-12-07] MEDS: Carvedilol 3.125 MG TABLET PO ×2 (08:17→12:46)
[2023-12-07] MEDS: Famotidine 20 MG Tablet PO (08:17)
[2023-12-07 08:53] LABS: Anion Gap 7 (5-15); BUN 25 mg/dL (7-18); BUN/Creat Ratio 16.1 RATIO (10-20); Calcium,Total 8.6 mg/dL (8.5-10.1); Chloride 106 mmol/L (98-107); Creatinine, Serum 1.55 mg/dL (0.70-1.30); EST Glomerular Filtration Rate 45 mL/min (>60); Est Glom Filt Rate - Afr Amer 55 mL/min (>60); Estimated Creatinine Clearance 42.74 ml/min; Glucose 89 mg/dL (74-106); Potassium 3.7 mmol/L (3.5-5.1); Sodium Level 138 mmol/L (136-145)
--- NOTE | 2023-12-07 09:38 | CASEMGMT ---
BRANT notified Meagan in TCU that patient will not be coming today, but hopefully tomorrow. Meagan will communicate with insurance. Malka Kwon CRA OFFICER RAPHAEL
[2023-12-07] MEDS: BRIMONIDINE TARTRATE 5 ML DROPS 1 ML OPHTHALMIC ×2 (11:00→23:19)
--- NOTE | 2023-12-07 11:50 | PCM.PN.BLA ---
Progress Note Notified that the patient had a run of nonsustained ventricular tachycardia. Patient asymptomatic. Check electrolytes and magnesium. Increase carvedilol to 6.25 mg twice daily.
--- NOTE | 2023-12-07 12:38 | PN_ITS ---
Subjective Subjective Patient seen and examined. He had no active complaints. He denied any abdominal pain, nausea, vomiting, fever or chills. Review of systems is otherwise negative. CT of the abdomen and pelvis done yesterday o/a of persistently elevated Cr showed a right obstructive kidney stone. Objective Data Objective Data Vital Signs: Vital Signs Temp Pulse Resp BP Pulse Ox O2 Del Method O2 Flow Rate 98.2 F 77 16 134/83 H 99 Room Air 3 12/07/23 08:10 12/07/23 08:10 12/07/23 08:10 12/07/23 08:10 12/07/23 08:10 12/07/23 08:10 12/05/23 20:07 Oxygen Flow Rate (L/min) 3 Oxygen Delivery Method Room Air Weight: 230 lb 2.601 oz Body Mass Index (BMI) 31.1 Intake & Output: Intake and Output for Last 24 Hours 12/05/23 12/06/23 12/07/23 23:59 23:59 23:59 Intake Total 2675.84 / 2675.84 2405 / 2405 100 / 100 Output Total 1100 / 1475 2225 / 2225 850 / 850 Balance 1575.84 / 1200.84 180 / 180 -750 / -750 Lab / Micro Data 12/07/23 05:45 12/07/23 05:45 Labs: Laboratory Results - last 24 hr 12/03/23 06:15: Diff Path Review Reviewed 12/06/23 20:38: Hgb 9.7 L 12/07/23 05:45: WBC 9.2, RBC 3.14 L, Hgb 9.5 L, Hct 29.4 L, MCV 93.6, MCH 30.3, MCHC 32.3, RDW Std Deviation 52.3 H, RDW Coeff of Angelia 15.3 H, Plt Count 116 L, MPV 11.5, Immature Gran % (Auto) 0.400, Neut % (Auto) 60.6, Lymph % (Auto) 18.8 L, [place] % (Auto) 17.2 H, Eos % (Auto) 2.7, Baso % (Auto) 0.3, Absolute Neuts ( auto) 5.5, Absolute Lymphs (auto) 1.72, Nucleated RBC % 0, Differential Comment SCANNED, Sodium 138, Potassium 3.7, Chloride 106, Carbon Dioxide 25.0, Anion Gap 7, BUN 25 H, Creatinine 1.55 H, Estim Creat Clear Calc 42.74, Est GFR (MDRD) Af Amer 55 L, Est GFR (MDRD) Non-Af 45 L, BUN/Creatinine Ratio 16.1, Glucose 89, Calcium 8.6, Magnesium 2.0 Micro: Microbiology 12/02/23 13:30 Blood Culture (Wb) - Anticubital Right Blood Culture - Final GNR lactose sergeant of corrections 12/02/23 13:20 Blood Culture (Wb) - Anticubital Right Blood Culture - Final Escherichia coli 12/02/23 14:36 Urine, Clean Catch Urine Culture - Final Escherichia coli 12/02/23 13:30 Mucosa - Nose SARS-CoV-2, Influenza & RSV (PCR) - Final Radiography Diagnostic Testing: Radiology Impression Renal Ultrasound 12/06/23 11:58 IMPRESSION: Moderate right hydronephrosis. CT scan of the abdomen pelvis might be further value to rule out distal ureteral obstruction or stone. Electronically Signed: Pepito Cantor MD at 15:00 EDT , Abdomen/Pelvis CT 12/06/23 15:29 IMPRESSION: Left lower lobe infiltrate and effusions. Cholelithiasis. Moderate right hydronephrosis due to a 9 mm UPJ stone. Ileus. Possible left pelvic sidewall retroperitoneal hematoma. Other incidental findings as above. Electronically Signed: Arian Stokes MD at 19:20 EDT , ADDENDUM: 12/06/232008 IMPRESSION: Left lower lobe infiltrate and effusions. Cholelithiasis. Moderate right hydronephrosis due to a 9 mm UPJ stone. Ileus. Possible left pelvic sidewall retroperitoneal hematoma. Other incidental findings as above. N.B. : The above Results were Read Back by Arian Stokes MD to Sally Zelaya MD, and understanding confirmed on 12/06/2023 20:02:30 (ET). Electronically Signed: Arian Stokes MD at 19:20 EDT , Physical Exam Const alert, oriented x3, no apparent distress and well nourished Constitutional Narrative: General Appearance: cooperative and well developed HEENT normocephalic, head/scalp atraumatic, moist oral mucous membranes and oropharynx normal Eyes PERRL and EOMs intact bilaterally Neck no lymphadenopathy Lymph Lymphatic: no lymphadenopathy noted and no lymphedema noted Resp Resp Narrative: diminished breath sounds basally, few crackles. on room air. Cardio regular rate, regular rhythm, S1 normal heart sound, S2 normal heart sound and no murmurs GI normal to inspection, nondistended, normoactive bowel sounds, soft to palpation, non-tender and non-distended Extremity normal capillary refill, no clubbing, cyanosis or edema and no calf tenderness Extremity Narrative: mild tenderness in left groin area General Extremity: no tenderness to palpation of joints or extremities Skin General Skin Exam: no breakdown Neuro CN's II-XII intact bilaterally, no focal motor deficits, no sensory deficits noted and deep tendon reflexes 2+ bilaterally Motor Exam: strength 5/5 throughout and general weakness Psych thought process normal, cooperative and affect normal Appearance: appropriate Assessment & Plan Assessment/Plan (1) Acute kidney injury: (2) Paroxysmal atrial fibrillation: (3) Sepsis: (4) Non-STEMI (non-ST elevated myocardial infarction): PLAN: Plan #Non-stemi * cardiology on board. * troponins elevated * on aspirin, lipitor and zetia. 2D echo showed mild concentric left ventricular hypertrophy with posterior hypokinesis and EF of 45% with stage II diastolic dysfunction and severely enlarged left atrium. 2+ mitral valve and tricuspid valve insufficiency and right ventricular stock pressure of 60 mmHg. Mild aortic stenosis. * Had cardiac cath which showed mild cardiac disease with plan for medical management. On aspirin and statin. Also on Eliquis. On carvedilol. * * #Acute encephalopathy due to UTI and probable pneumonia * on IV rocephin and azithromycin * Urine cultures grew E. coli * Blood culture growing E. coli. Currently on IV ceftriaxone. White cell count trended down to 10. Plan is for a total 10-day course of treatment. * #Right obstructive infected kidney stone * Cr remains elevated and is 1.53 today * Renal USG done showed right obstructive kidney stone * CT abdomen and pelvis showed moderate right hydronephrosis due 9mm ureteropelvic junction stone * urology consulted; for cystoscopy and stent insertion today * #Thrombocytopenia * has chronic thrombocytopenia * is improving, up to 116 today. * #Paroxysmal A-fib: On carvedilol. Has been in sinus rhythm since admission. Eliquis on hold due to retroperitoneal hematoma #FRANKLIN: * Creatinine today is 1.55. Creatinine is not improving. * In light of E. coli bacteremia, this was discussed with ID. Renal ultrasound obtained. This discussion showed right-sided hydronephrosis * CT abdomen/pelvis as above * will likely improve once she has cystoscopy. * #Possible left pelvic sidewall retroperitoneal hematoma * eliquis held. Hb is stable. 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 Charges/Coding Visit Charges Inpatient E&M: 47139 Subs Hosp L2
[2023-12-07] MEDS: Lactated Ringers 1,000 ML 15 ML IV (14:50)
--- NOTE | 2023-12-07 16:17 | PCM.OPRPT ---
Report of Operation Date of Procedure: 12/07/23 Pre-Operative Diagnosis: Obstructing right kidney stone with infection Post-Operative Diagnosis: The same Surgery/Procedure Performed:: Cystoscopy right retrograde pyelogram and right stent placement Description of Surgical Findings:: Patient was taken back to the operating room after induction of general anesthesia, the patient was placed in dorsolithotomy position. The urethra and genitals were prepped and draped in usual sterile fashion. Using a 21 [place] rigid cystourethroscope the entire length of the urethra was normal then went into the bladder. Identified the trigone the left and right ureteral orifice. I then cannulated the right ureteral orifice and advanced a wire up into the kidney. I then backloaded a 5 [place] open ended catheter over the wire and injected contrast to delineate the anatomy. After the retrograde was performed I then used fluoroscopic images and guidance to advanced a wire up into the kidney and over the 0.038 glidewire I advanced a 6 [place] by 26 cm double pigtail stent. I then pulled the 0.038 Glidewire off and the stent coiled in the kidney bladder good position. The bladder was then drained. We confirmed the position of the stent by fluoroscopy. Patient anesthetic was reversed and was taken back to the PACU in good condition. Surgeon: Darien Lee Type of Anesthesia: General Drains: stent right Admit VTE Documentation VTE Present on Admission: No VTE Mechan Device Prophylaxis: SCD's VTE Pharm Prophylaxis ordered?: No
[2023-12-07] MEDS: Furosemide 40 MG Tablet PO (17:22)
[2023-12-07] MEDS: Finasteride 5 MG Tablet PO (17:22)
[2023-12-07] MEDS: Ezetimibe 10 MG Tablet PO (17:22)
[2023-12-07] MEDS: Ursodiol 250 MG Tablet 500 MG PO (17:23)
[2023-12-07] MEDS: 0.9% Saline Lock 10 ML Syringe IV ×2 (20:06→23:17)
[2023-12-07] MEDS: Atorvastatin Calcium 20 MG Tablet PO (23:18)
[2023-12-07] MEDS: Nystatin Powder 15gm Bottle 1 APPLIC TOPICAL (23:19)
[2023-12-07] MEDS: NETARSUDIL MESYLAT/LATANOPROST 2.5 ML DROPS 1 ML EACH EYE (23:19)
[2023-12-07] MEDS: Carvedilol 6.25 MG Tablet PO (23:20)
[2023-12-08] MEDS: Piperacil/Tazobactam 3.375 GM in 0.9% Normal Saline (50mL MB+) 50 ML IV ×2 (00:49→06:42)
[2023-12-08 02:28] VITALS: BMI 31.0
[2023-12-08 04:36] VITALS: BP 107/54; PULSE 63; RESP 18; TEMP 36.6; O2SAT 94
[2023-12-08 06:12] LABS: Absolute Lymphocyte Count 1.74 X10^3/uL (0.83-4.51); Absolute Neutrophil Count 5.7 X10^3/uL (2.0-7.7); Basophil# 0.03 X10^3/uL; Basophil% 0.3 % (0-1); Eosinophil# 0.15 X10^3/uL; Eosinophils% 1.7 % (0-5); Hematocrit 29.8 % (40-54); Hemoglobin 9.7 g/dL (13.0-16.5); Lymphocyte # 1.74 X10^3/ul (0.83-4.51); Lymphocyte % 19.1 % (19-41); Mean Corp Hgb Conc 32.6 g/dL (32-36); Mean Corpuscular Hgb 30.4 pg (27.0-32.0); Mean Corpuscular Volume 93.4 fL (80-94); Mean Platelet Vol. 10.4 fl (6.2-12.0); Monocyte# 1.36 X10^3/uL; NRBC Flagged by Analyzer 0 % (0-5); Neutrophil # 5.74 X10^3/uL (2.7-7.7); Neutrophil % 63.1 % (47-70); POSITIVE MORPHOLOGY YES; Platelet Count 134 K/mm3 (150-450); RBC Distribution Width CV 15.2 % (11.6-14.6); RBC Distribution Width SD 52.7 fl (35.1-43.9); Red Blood Count 3.19 M/mm3 (4.6-6.2); White Blood Count 9.1 K/mm3 (4.4-11.0)
[2023-12-08 06:35] LABS: Anion Gap 6 (5-15); BUN 25 mg/dL (7-18); BUN/Creat Ratio 19.2 RATIO (10-20); Calcium,Total 8.7 mg/dL (8.5-10.1); Chloride 104 mmol/L (98-107); EST Glomerular Filtration Rate 56 mL/min (>60); Est Glom Filt Rate - Afr Amer 67 mL/min (>60); Estimated Creatinine Clearance 50.84 ml/min; Glucose 114 mg/dL (74-106); Potassium 3.7 mmol/L (3.5-5.1); Sodium Level 138 mmol/L (136-145)
[2023-12-08 06:36] LABS: Differential Indicated SCAN CRITERIA MET
[2023-12-08 07:22] LABS: Atypical Lymphocyte RARE %
[2023-12-08] MEDS: Albuterol 2.5 MG/3 ML VIAL.NEB. INHALATION (07:40)
[2023-12-08 07:41] VITALS: PULSE 77; RESP 20; O2SAT 97
[2023-12-08] MEDS: Budesonide Respules 0.5 MG/2 ML AMPUL.NEB. INHALATION (07:41)
[2023-12-08 09:30] VITALS: BP 119/80; PULSE 68; RESP 16; TEMP 36.5; O2SAT 96
[2023-12-08] MEDS: BRIMONIDINE TARTRATE 5 ML DROPS 1 ML OPHTHALMIC (09:46)
[2023-12-08] MEDS: Aspirin 81 MG TAB.CHEW PO (09:46)
[2023-12-08] MEDS: Ursodiol 250 MG Tablet 500 MG PO (09:46)
[2023-12-08] MEDS: Furosemide 40 MG Tablet PO (09:47)
[2023-12-08] MEDS: Ezetimibe 10 MG Tablet PO (09:47)
[2023-12-08] MEDS: Nystatin Powder 15gm Bottle 1 APPLIC TOPICAL (09:47)
[2023-12-08] MEDS: Famotidine 20 MG Tablet PO (09:47)
[2023-12-08] MEDS: Carvedilol 6.25 MG Tablet PO (09:47)
--- NOTE | 2023-12-08 10:46 | TREXTCAR_ITS ---
Diet Diet Order/Speech Therapy: 12/07/23 16:19 Diet: Regular - General Is pt able to select menu?: Yes Routine Orders/Code Status Enema Type: Fleetz Enema Frequency: Daily PRN Suppository Type: Dulcolax 10mg Suppository Frequency: Daily PRN O2 Frequency: PRN Keep PO Greater than or Equal to (%): 90 Wound(s) right radial: Wound Type: Puncture Therapies Weight Bearing: Weight bearing as tolerated Physical Therapy: Eval and Treat Occupational Therapy: Eval and Treat Problem/Diagnosis (1) Acute kidney injury: Status: Acute Code(s): N17.9 - Acute kidney failure, unspecified (2) Paroxysmal atrial fibrillation: Status: Acute Code(s): I48.0 - Paroxysmal atrial fibrillation (3) Sepsis: Status: Acute Code(s): A41.9 - Sepsis, unspecified organism (4) Non-STEMI (non-ST elevated myocardial infarction): Status: Acute Code(s): I21.4 - Non-ST elevation (NSTEMI) myocardial infarction Plan #Non-stemi * cardiology on board. * troponins elevated * on aspirin, lipitor and zetia. 2D echo showed mild concentric left ventricular hypertrophy with posterior hypokinesis and EF of 45% with stage II diastolic dysfunction and severely enlarged left atrium. 2+ mitral valve and tricuspid valve insufficiency and right ventricular stock pressure of 60 mmHg. Mild aortic stenosis. * Had cardiac cath which showed mild cardiac disease with plan for medical management. On aspirin and statin. Also on Eliquis. On carvedilol. * * #Acute encephalopathy due to UTI and probable pneumonia * on IV rocephin and azithromycin * Urine cultures grew E. coli * Blood culture growing E. coli. Currently on IV ceftriaxone. White cell count trended down to 10. Plan is for a total 10-day course of treatment. * #Right obstructive infected kidney stone * Cr remains elevated and is 1.53 today * Renal USG done showed right obstructive kidney stone * CT abdomen and pelvis showed moderate right hydronephrosis due 9mm ureteropelvic junction stone * urology consulted; for cystoscopy and stent insertion today * #Thrombocytopenia * has chronic thrombocytopenia * is improving, up to 116 today. * #Paroxysmal A-fib: On carvedilol. Has been in sinus rhythm since admission. Eliquis on hold due to retroperitoneal hematoma #FRANKLIN: * Creatinine today is 1.55. Creatinine is not improving. * In light of E. coli bacteremia, this was discussed with ID. Renal ultrasound obtained. This discussion showed right-sided hydronephrosis * CT abdomen/pelvis as above * will likely improve once she has cystoscopy. * #Possible left pelvic sidewall retroperitoneal hematoma * eliquis held. Hb is stable. 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 Allergies/Procedures Done in Hospital Allergies metoprolol [From Lopressor] Allergy (Intermediate, Verified 10/20/23 09:49) Shortness of breath Penicillins Allergy (Verified 10/20/23 09:49) Rash Procedures: 2-D Echocardiogram and Cardiac catheterization Type of Care/Length of Stay Estimated LOS: Convalescent Care Less Than 30 days Type of Care Needed: Skilled Rehab Potential: Fair Prognosis: Fair Additional Orders/Day of Discharge Day of Discharge: 12/08/23 Dietary and Speech Recommendations Dietitian Recommendations/Changes: Continue cardiac diet as ordered. ONS as needed if PO fails at meals. Discharge Plan Admission Admit Date/Time: 12/02/23 16:40 Primary Reason for Your Visit: nonstemi Attending Provider: Klaudia Gonzales Primary Care Provider: Addi Mario Consulting Providers: Vanessa Simmons; Miguelito Laguna Juan Miguel Instructions Patient Instructions: First Aid: Heart Attacks, Heart Attack Dc Discharge Orders/Prescriptions Prescriptions: New cefdinir 300 mg capsule 300 mg PO BID Qty: 10 0RF Continued magnesium oxide [Tobin] 500 mg tablet 1,500 mg PO QHS cyanocobalamin (vitamin B-12) 1,000 mcg capsule 1,000 mcg PO DAILY cholecalciferol (vitamin D3) 50 mcg (2,000 unit) tablet 50 mcg PO DAILY guaifenesin 1,200 mg tablet extended release 12hr 1,200 mg PO Q12H Qty: 60 6RF budesonide-formoterol [Symbicort] 160-4.5 mcg/actuation HFA aerosol inhaler 2 puff inhalation BID Rx Instructions: administer with spacer, rinse mouth after each use brimonidine 0.1 % drops 1 drp ophthalmic (eye) DAILY Rx Instructions: instill 1 drop into both eyes twice a day albuterol sulfate [Ventolin HFA] 90 mcg/actuation HFA aerosol inhaler 2 puff INHALATION Q4H PRN (Reason: Asthma) Qty: 8.5 2RF aspirin 81 MG tablet 81 mg PO DAILY@0800 travoprost 1 DROP bottle 1 drp EACH EYE QHS cetirizine 10 mg capsule 10 mg PO DAILY PRN (Reason: allergy) Centrum Silver 0.4 mg-300 mcg- 250 mcg tablet 1 tab PO DAILY Rocklatan 0.02-0.005 % drops 1 drp ophthalmic (eye) QHS Rx Instructions: INSTILL 1 DROP INTO EACH EYE AT BEDTIME (DME) Disability Placard See Rx Instructions .Route .MEDSUPPLY Qty: 1 0RF Rx Instructions: Expires 12/01/2026 Arthritis Compound 1 click TOPICAL DAILY PRN (Reason: Pain) Qty: 60 1RF Rx Instructions: Diclofenac 3%, Lidocaine 3%, Baclofen 2% 1 click=o.25g 1 click topical daily 60 click tube (DME) nebulizer and compressor [Portable Nebulizer System] Device See Rx Instructions .Route Qty: 1 0RF Rx Instructions: As directed atorvastatin 20 mg tablet 20 mg PO QHS Qty: 90 3RF ursodiol 500 mg tablet See Rx Instructions .ROUTE .COMPLEX Qty: 180 3RF Dose Instruction: take 1 tablet by mouth twice a day with meals FOR LIVER DISEASE Rx Instructions: take 1 tablet by mouth twice a day with meals FOR LIVER DISEASE famotidine 20 mg tablet 20 mg PO DAILY Qty: 90 3RF finasteride 5 mg tablet 5 mg PO DAILY Qty: 90 3RF nitroglycerin 0.4 mg tablet, sublingual 0.4 mg SUBLINGUAL Q5-15M PRN (Reason: chest pain) Qty: 25 3RF ezetimibe 10 mg tablet 10 mg PO DAILY Qty: 90 3RF ferrous sulfate 325 mg (65 mg iron) tablet 325 mg PO QODAY Qty: 90 2RF Discontinued Eliquis 5 mg tablet 5 mg PO BID Qty: 60 11RF Referrals / Follow Up: Vanessa Simmons MD [Med Staff - Active Staff] - Within 2 Weeks Addi Mario MD [Primary Care Provider] - Within 1 Week Darien Lee MD [Med Staff - Active Staff] - Within 1 Week Disposition Disposition (needs filled in before D/C Order can be placed): [facility]
--- NOTE | 2023-12-08 10:48 | PCM.DC.SUM ---
Providers Date of Admission: 12/02/23 Date of Discharge: 12/08/23 Primary Care Physician: Dr. Addi Mario MD Consultations 12/02/23 17:06 Consult: Cardiology Routine Consulting Provider: Vanessa Simmons Reason for Consult: NSTEMI EMERGENT Consult: No Notified: Yes Date Notified: 12/02/23 Time Notified: 16:45 Method of Notification: ED Physician Initiated 12/06/23 19:59 Consult: Urology Routine Consulting Provider: Darien Lee Reason for Consult: moderate right hydronephrosis due to a 9 mm UPJ stone EMERGENT Consult: No Notified: Yes Date Notified: 12/06/23 Time Notified: 19:59 Method of Notification: Text Reason For Visit: NSTEMI W UTI AND PNEUMONIA Diagnosis Discharge Diagnosis (1) Acute kidney injury: Status: Acute Code(s): N17.9 - Acute kidney failure, unspecified (2) Paroxysmal atrial fibrillation: Status: Acute Code(s): I48.0 - Paroxysmal atrial fibrillation (3) Sepsis: Status: Acute Code(s): A41.9 - Sepsis, unspecified organism (4) Non-STEMI (non-ST elevated myocardial infarction): Status: Acute Code(s): I21.4 - Non-ST elevation (NSTEMI) myocardial infarction Plan #Non-stemi cardiology on board. troponins elevated on aspirin, lipitor and zetia. 2D echo showed mild concentric left ventricular hypertrophy with posterior hypokinesis and EF of 45% with stage II diastolic dysfunction and severely enlarged left atrium. 2+ mitral valve and tricuspid valve insufficiency and right ventricular stock pressure of 60 mmHg. Mild aortic stenosis. Had cardiac cath which showed mild cardiac disease with plan for medical management. On aspirin and statin. Also on Eliquis. On carvedilol. #Acute encephalopathy due to UTI and probable pneumonia on IV rocephin and azithromycin Urine cultures grew E. coli Blood culture growing E. coli. Currently on IV ceftriaxone. White cell count trended down to 10. Plan is for a total 10-day course of treatment. #Right obstructive infected kidney stone Cr remains elevated and is 1.53 today Renal USG done showed right obstructive kidney stone CT abdomen and pelvis showed moderate right hydronephrosis due 9mm ureteropelvic junction stone urology consulted; for cystoscopy and stent insertion today #Thrombocytopenia has chronic thrombocytopenia is improving, up to 116 today. #Paroxysmal A-fib: On carvedilol. Has been in sinus rhythm since admission. Eliquis on hold due to retroperitoneal hematoma #FRANKLIN: Creatinine today is 1.55. Creatinine is not improving. In light of E. coli bacteremia, this was discussed with ID. Renal ultrasound obtained. This discussion showed right-sided hydronephrosis CT abdomen/pelvis as above will likely improve once she has cystoscopy. #Possible left pelvic sidewall retroperitoneal hematoma eliquis held. Hb is stable. 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 Medications at Discharge Home Medications aspirin 81 mg tablet,delayed release 81 mg PO DAILY@0800 heart health 12/06/16 travoprost 0.004 % eye drops 1 drp EACH EYE QHS glaucoma 06/02/19 magnesium oxide (Tobin) 1,500 mg PO QHS Supplement 08/05/20 cholecalciferol (vitamin D3) 50 mcg (2,000 unit) tablet 50 mcg PO DAILY Supplement 11/19/20 cyanocobalamin (vitamin B-12) 1,000 mcg capsule 1,000 mcg PO DAILY Supplement 11/19/20 Disability Placard #1 ea 12/01/21 Arthritis Compound 1 click topical DAILY PRN Pain #60 CLICKS 02/08/22 cetirizine 10 mg capsule 10 mg PO DAILY PRN allergy 10/05/22 albuterol sulfate 90 mcg/actuation aerosol inhaler (Ventolin HFA) 2 puff inhalation Q4H PRN Asthma #8.5 grams 04/28/23 nebulizer and compressor (Portable Nebulizer System) #1 ea 04/30/23 guaifenesin 1,200 mg tablet, extended release 12 hr 1,200 mg PO Q12H Mucus #60 tabs 06/29/23 atorvastatin 20 mg tablet 20 mg PO QHS cholesterol #90 tabs 07/07/23 ursodiol 500 mg tablet See Rx Instructions .Route .COMPLEX Liver #180 tabs 08/03/23 famotidine 20 mg tablet 20 mg PO DAILY GERD #90 tabs 08/10/23 brimonidine 0.1 % eye drops 1 drp ophthalmic (eye) DAILY Eye drops 08/15/23 budesonide-formoterol HFA 160 mcg-4.5 mcg/actuation aerosol inhaler (Symbicort) 2 puff inhalation BID Asthma 08/15/23 finasteride 5 mg tablet 5 mg PO DAILY BPH #90 tabs 08/18/23 ezetimibe 10 mg tablet 10 mg PO DAILY heart health #90 tabs 09/15/23 nitroglycerin 0.4 mg sublingual tablet 0.4 mg sublingual Q5-15M PRN chest pain #25 tabs 09/15/23 ferrous sulfate 325 mg (65 mg iron) tablet 325 mg PO QODAY Supplement #90 tabs 11/23/23 tnxvqpxd-elq-vsofi acid 0.4 mg-lycopene 300 mcg-lutein 250 mcg tablet (Centrum Silver) 1 tab PO DAILY supplement 12/02/23 netarsudil 0.02 %-latanoprost 0.005 % eye drops (Rocklatan) 1 drp ophthalmic (eye) QHS Eye drops 12/02/23 carvedilol 6.25 mg tablet 6.25 mg PO BID BP #60 tabs 12/08/23 cefdinir 300 mg capsule 300 mg PO BID Antibiotic #10 caps 12/08/23 furosemide 40 mg tablet 40 mg PO DAILY Fluid retention #30 tabs 12/08/23 potassium chloride 10 mEq capsule,extended release 10 meq PO DAILY supplement #30 caps 12/08/23 Hospital Course Operations None and - Procedures 2-D Echocardiogram, Cardiac catheterization and - (cystoscopy with right ureteral stent placement) Summary of Care Provided Minutes Spent on Discharge: 45 Hospital Course: Patient is an 88-year-old male with a past medical history as outlined was admitted through the ED on 12/02/2023 with a complaint of right-sided flank pain. He said it started the day before admission. He also had associated chest pain which had also started the day before admission. In the ED troponins were elevated at 900 and he had an EKG which did not show any acute ST changes. Chest x-ray showed possible infiltrate and urinalysis showed evidence of UTI. He was therefore started on heparin drip and started on IV ceftriaxone. He was admitted and managed for non-STEMI as well as UTI. Creatinine was also elevated so he was managed for FRANKLIN. Cardiology was consulted. He was placed on aspirin and Lipitor also. 2D echo done showed EF of 45% with stage II diastolic dysfunction and mild concentric left ventricular hypertrophy with posterior hypokinesis. WBC was elevated and trended downwards. Urine cultures grew E. coli. Hospital course was complicated by thrombocytopenia which trended down some more. Platelets are 125 on admission due to chronic thrombocytopenia. Trended down to a moises 70 to 80s during this admission so heparin drip was discontinued. His creatinine also trended up to a peak of 1.65. He was hydrated with IV fluids. 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 Plan was therefore for anxiety management. Patient's blood cultures came back positive for E. coli. CT of the abdomen and pelvis done showed that he did have a right proximal ureteropelvic stone which was 9 mm in diameter and causing an obstructive hydronephrosis. Urology was therefore consulted and patient had cystoscopy with right ureteral stent placement on 12/07/2023. His creatinine subsequently trended down to normal levels. Of note, patient's hospital course was also complicated by this persistent pain he had in his left groin area. CT of the abdomen and pelvis done also showed a small left retroperitoneal hematoma. His Eliquis was therefore discontinued. Patient was counseled that he was at increased risk of a stroke in light of his A-fib since Eliquis had been discontinued. This was discussed with cardiology. Patient was counseled that he needed to follow-up with his PCP and cardiology within 1 to 2 weeks for decision to be made about resumption of Eliquis. Patient was skilled as needing senior care facility. He was therefore discharged to senior care facility on 12/09/2023. He was discharged in a weeks course of p.o. cefdinir based on the E. coli that was cultured in his urine and blood being pansensitive. He is to follow-up with urology within 1 to 2 weeks for lithotripsy. Patient was seen and examined prior to discharge. He had no active complaints and had an uneventful night. Review of systems otherwise negative. Labs and vitals reviewed. Home medication reviewed and reconciled. Physical Exam Const alert, oriented x3, no apparent distress and well nourished Constitutional Narrative: General Appearance: cooperative, comfortable, well kempt and well developed HEENT normocephalic, head/scalp atraumatic, hearing grossly normal bilaterally, moist oral mucous membranes and oropharynx normal Mouth: oral and palatal mucosa normal Eyes PERRL, EOMs intact bilaterally and conjunctivae normal Neck no lymphadenopathy and supple Lymph Lymphatic: no lymphadenopathy noted and no lymphedema noted Resp Resp Narrative: diminished breath sounds basally, few crackles. on room air. Cardio regular rate, regular rhythm, S1 normal heart sound, S2 normal heart sound and no murmurs GI normal to inspection, nondistended, normoactive bowel sounds, soft to palpation, non-tender and non-distended Extremity normal capillary refill, no clubbing, cyanosis or edema and no calf tenderness Extremity Narrative: mild tenderness in left groin area General Extremity: no tenderness to palpation of joints or extremities Skin no rashes or lesions noted General Skin Exam: no breakdown Neuro oriented x3, CN's II-XII intact bilaterally, moves all extremities, no focal motor deficits, no sensory deficits noted and deep tendon reflexes 2+ bilaterally Sensorium / Orientation: awake and alert Motor Exam: strength 5/5 throughout and general weakness Psych thought process normal, cooperative and affect normal Appearance: appropriate Weight / BMI Weight Weight: 229 lb 0.964 oz Body Mass Index (BMI) 31.0 ABG / Lab / Microbiology Data 12/08/23 06:00 12/08/23 06:00 Laboratory: Laboratory Results - last 24 hr 12/07/23 05:45: Magnesium 2.0 12/08/23 06:00: WBC 9.1, RBC 3.19 L, Hgb 9.7 L, Hct 29.8 L, MCV 93.4, MCH 30.4, MCHC 32.6, RDW Std Deviation 52.7 H, RDW Coeff of Angelia 15.2 H, Plt Count 134 L, MPV 10.4, Immature Gran % (Auto) 0.800, Neut % (Auto) 63.1, Lymph % (Auto) 19.1, [place] % (Auto) 15.0 H, Eos % (Auto) 1.7, Baso % (Auto) 0.3, Absolute Neuts (auto) 5.7, Absolute Lymphs (auto) 1.74, Nucleated RBC % 0, Atypical Lymphocytes RARE, Sodium 138, Potassium 3.7, Chloride 104, Carbon Dioxide 28.0, Anion Gap 6, BUN 25 H, Creatinine 1.30, Estim Creat Clear Calc 50.84, Est GFR (MDRD) Af Amer 67, Est GFR (MDRD) Non-Af 56 L, BUN/Creatinine Ratio 19.2, Glucose 114 H, Calcium 8.7 Microbiology: Microbiology 12/02/23 13:30 Blood Culture (Wb) - Anticubital Right Blood Culture - Final GNR lactose chartered financial analyst 12/02/23 13:20 Blood Culture (Wb) - Anticubital Right Blood Culture - Final Escherichia coli 12/02/23 14:36 Urine, Clean Catch Urine Culture - Final Escherichia coli 12/02/23 13:30 Mucosa - Nose SARS-CoV-2, Influenza & RSV (PCR) - Final D/C Instructions Discharge Diet: Low fat / Low cholesterol Discharge Activity: Return to Normal Activity Weight Bearing Status: Weight bearing as tolerated Call your doctor if you observe: Fever of 101 or Higher, Shortness of breath, Dizziness, Swelling in the ankles and Chest pain Meaningful Use Info Meaningful Use Diagnoses (Choose all that apply): AMI AMI/Post PCI/Angioplasty Aspirin given w/in 24hrs of arrival?: Yes ASA at discharge?: Yes Antiplatelet Therapy at Discharge:: Yes Statins at discharge?: Yes Johnny/ARB at discharge?: Yes Beta Jayden at discharge?: Yes Done w/ Acute [place] measure.: Yes Documented LVEF (%): 45 Discharge Plan Admission Admit Date/Time: 12/02/23 16:40 Primary Reason for Your Visit: nonstemi Attending Provider: Klaudia Gonzales Primary Care Provider: Addi Mario Consulting Providers: Vanessa Simmons; Miguelito Laguna; Darien Lee Instructions Patient Instructions: First Aid: Heart Attacks, Heart Attack Dc Discharge Orders/Prescriptions Prescriptions: New cefdinir 300 mg capsule 300 mg PO BID Qty: 10 0RF furosemide 40 mg Tablet 40 mg PO DAILY Qty: 30 2RF carvedilol 6.25 mg Tablet 6.25 mg PO BID Qty: 60 2RF potassium chloride 10 mEq capsule, extended release 10 meq PO DAILY Qty: 30 2RF Continued magnesium oxide [Tobin] 500 mg tablet 1,500 mg PO QHS cyanocobalamin (vitamin B-12) 1,000 mcg capsule 1,000 mcg PO DAILY cholecalciferol (vitamin D3) 50 mcg (2,000 unit) tablet 50 mcg PO DAILY guaifenesin 1,200 mg tablet extended release 12hr 1,200 mg PO Q12H Qty: 60 6RF budesonide-formoterol [Symbicort] 160-4.5 mcg/actuation HFA aerosol inhaler 2 puff inhalation BID Rx Instructions: administer with spacer, rinse mouth after each use brimonidine 0.1 % drops 1 drp ophthalmic (eye) DAILY Rx Instructions: instill 1 drop into both eyes twice a day albuterol sulfate [Ventolin HFA] 90 mcg/actuation HFA aerosol inhaler 2 puff INHALATION Q4H PRN (Reason: Asthma) Qty: 8.5 2RF aspirin 81 MG tablet 81 mg PO DAILY@0800 travoprost 1 DROP bottle 1 drp EACH EYE QHS cetirizine 10 mg capsule 10 mg PO DAILY PRN (Reason: allergy) Centrum Silver 0.4 mg-300 mcg- 250 mcg tablet 1 tab PO DAILY Rocklatan 0.02-0.005 % drops 1 drp ophthalmic (eye) QHS Rx Instructions: INSTILL 1 DROP INTO EACH EYE AT BEDTIME (DME) Disability Placard See Rx Instructions .Route .MEDSUPPLY Qty: 1 0RF Rx Instructions: Expires 12/01/2026 Arthritis Compound 1 click TOPICAL DAILY PRN (Reason: Pain) Qty: 60 1RF Rx Instructions: Diclofenac 3%, Lidocaine 3%, Baclofen 2% 1 click=o.25g 1 click topical daily 60 click tube (DME) nebulizer and compressor [Portable Nebulizer System] Device See Rx Instructions .Route Qty: 1 0RF Rx Instructions: As directed atorvastatin 20 mg tablet 20 mg PO QHS Qty: 90 3RF ursodiol 500 mg tablet See Rx Instructions .ROUTE .COMPLEX Qty: 180 3RF Dose Instruction: take 1 tablet by mouth twice a day with meals FOR LIVER DISEASE Rx Instructions: take 1 tablet by mouth twice a day with meals FOR LIVER DISEASE famotidine 20 mg tablet 20 mg PO DAILY Qty: 90 3RF finasteride 5 mg tablet 5 mg PO DAILY Qty: 90 3RF nitroglycerin 0.4 mg tablet, sublingual 0.4 mg SUBLINGUAL Q5-15M PRN (Reason: chest pain) Qty: 25 3RF ezetimibe 10 mg tablet 10 mg PO DAILY Qty: 90 3RF ferrous sulfate 325 mg (65 mg iron) tablet 325 mg PO QODAY Qty: 90 2RF Discontinued Eliquis 5 mg tablet 5 mg PO BID Qty: 60 11RF Referrals / Follow Up: Vanessa iSmmons MD [Med Staff - Active Staff] - Within 2 Weeks Addi Mario MD [Primary Care Provider] - Within 1 Week Darien Lee MD [Med Staff - Active Staff] - Within 1 Week Disposition Disposition (needs filled in before D/C Order can be placed): [facility] Charges/Coding Visit Charges Inpatient E&M: 88228 Disch Hosp >30min
[2023-12-08] MEDS: Finasteride 5 MG Tablet PO (11:00)
--- NOTE | 2023-12-08 11:02 | PHA.DC.MR.R ---
Pharmacy [place] Med Reconciliation Pharmacy Service has performed discharge medication reconciliation for this patient upon transfer to TCU The patient's discharge medication list was reviewed for discrepancies and discrepancies were resolved. Medications at Discharge Home Medications aspirin 81 mg tablet,delayed release 81 mg PO DAILY@0800 heart health 12/06/16 travoprost 0.004 % eye drops 1 drp EACH EYE QHS glaucoma 06/02/19 magnesium oxide (Tobin) 1,500 mg PO QHS 08/05/20 cholecalciferol (vitamin D3) 50 mcg (2,000 unit) tablet 50 mcg PO DAILY 11/19/20 cyanocobalamin (vitamin B-12) 1,000 mcg capsule 1,000 mcg PO DAILY 11/19/20 Disability Placard #1 ea 12/01/21 Arthritis Compound 1 click topical DAILY PRN Pain #60 CLICKS 02/08/22 cetirizine 10 mg capsule 10 mg PO DAILY PRN allergy 10/05/22 albuterol sulfate 90 mcg/actuation aerosol inhaler (Ventolin HFA) 2 puff inhalation Q4H PRN Asthma #8.5 grams 04/28/23 nebulizer and compressor (Portable Nebulizer System) #1 ea 04/30/23 guaifenesin 1,200 mg tablet, extended release 12 hr 1,200 mg PO Q12H #60 tabs 06/29/23 atorvastatin 20 mg tablet 20 mg PO QHS cholesterol #90 tabs 07/07/23 ursodiol 500 mg tablet See Rx Instructions .Route .COMPLEX #180 tabs 08/03/23 famotidine 20 mg tablet 20 mg PO DAILY #90 tabs 08/10/23 brimonidine 0.1 % eye drops 1 drp ophthalmic (eye) DAILY 08/15/23 budesonide-formoterol HFA 160 mcg-4.5 mcg/actuation aerosol inhaler (Symbicort) 2 puff inhalation BID 08/15/23 finasteride 5 mg tablet 5 mg PO DAILY #90 tabs 08/18/23 ezetimibe 10 mg tablet 10 mg PO DAILY heart health #90 tabs 09/15/23 nitroglycerin 0.4 mg sublingual tablet 0.4 mg sublingual Q5-15M PRN chest pain #25 tabs 09/15/23 ferrous sulfate 325 mg (65 mg iron) tablet 325 mg PO QODAY #90 tabs 11/23/23 knyngnth-zyz-avqra acid 0.4 mg-lycopene 300 mcg-lutein 250 mcg tablet (Centrum Silver) 1 tab PO DAILY 12/02/23 netarsudil 0.02 %-latanoprost 0.005 % eye drops (Rocklatan) 1 drp ophthalmic (eye) QHS 12/02/23 cefdinir 300 mg capsule 300 mg PO BID #10 caps 12/08/23
--- NOTE | 2023-12-08 11:59 | NURSING ---
1159 Report called to nurse Molina on TCU. Pt will be going to room17.
== END 2023-12-08 12:39 | disposition skilled nursing facility (03) | DRG 264 ==
LOC: ED 16:23 → PCU 17:04
PROVIDERS: Family Medicine; Internal Medicine Cardiovascular Disease; Urology; Admitting Provider Family Medicine; Emergency Provider Emergency Medicine; PCP Internal Medicine; Visit Provider Student in an Organized Health Care Education/Training Program
PROC: 0T768DZ Dilation of Right Ureter with Intraluminal Device, Via Natural or Artificial Opening Endoscopic (ICD-10-PCS; CPT 52332; principal; 2023-12-07 07:50)
DX: I21.4 Non-ST elevation (NSTEMI) myocardial infarction (principal); G93.41 Metabolic encephalopathy; K68.3 Retroperitoneal hematoma; J18.9 Pneumonia, unspecified organism; I42.8 Other cardiomyopathies; I47.20 Ventricular tachycardia, unspecified; N17.9 Acute kidney failure, unspecified; N13.6 Pyonephrosis; D69.6 Thrombocytopenia, unspecified; K74.3 Primary biliary cirrhosis; I48.0 Paroxysmal atrial fibrillation; I10 Essential (primary) hypertension; D50.9 Iron deficiency anemia, unspecified; I08.3 Combined rheumatic disorders of mitral, aortic and tricuspid valves; K21.9 Gastro-esophageal reflux disease without esophagitis; E78.5 Hyperlipidemia, unspecified; I25.10 Atherosclerotic heart disease of native coronary artery without angina pectoris; B96.20 Unspecified Escherichia coli [E. coli] as the cause of diseases classified elsewhere; N40.0 Benign prostatic hyperplasia without lower urinary tract symptoms; Z95.5 Presence of coronary angioplasty implant and graft; Z79.01 Long term (current) use of anticoagulants; Z79.51 Long term (current) use of inhaled steroids; Z79.899 Other long term (current) drug therapy
CPT/HCPCS: 36415; 36600; 70450; 71045; 73552; 74176; 76000; 76770; 80048; 81001; 82803; 83605; 83735; 84484; 85018; 85025; 85610; 85730; 87040; 87077; 87086; 87088; 87186; 87631; 93005; 93306; 93454; 94640; 97163; 97166; 97530; 97535; 99152; 99153; 99285; J7030; J7120; Q9967; A4216; C1769; C1894; C2617; J2405

== ENCOUNTER 2023-12-08 13:05 | Inpatient (IN) | payer MEDICARE, SELFPAY ==
[2023-12-08 14:01] VITALS: BP 105/57; PULSE 60; RESP 16; TEMP 36.1; O2SAT 96
[2023-12-08 14:22] VITALS: BMI 30.1
--- NOTE | 2023-12-08 17:30 | PCM.HP.STD ---
HPI - General General Date of Admission: 12/08/23 Date of Service: 12/08/23 Chief Complaint: Here for rehabilitation. HPI Narrative 12/02/2023 ARNULFO RUST, is a 88 Male who presents to [facility] ED with flank pain. Back pain, chest pain for 2 days, aching low back. Chest pain tight band around chest, NTG helpful. Tylenol helped back pain. Cough, chills, SOB. WBC 8.9, Hemoglobin 12.3, Platelet 125. Troponin 912, Lactate 2.1. covid/flu/rsv negative. UA c/w UTI, Chest X-ray left infiltrate, CT brain negative. Heparin drip, consult Cardiology for NSTEMI. Rocephin IV for UTI. Rocephin/Zithromax for pneumonia. 12/02/2023 Admit to [facility]. Hold Eliquis, continue Heparin drip, consult Cardiology, serial troponins, continue Aspirin, statin for NSTEMI. Rocephin/Zithromax IV for UTI/Pneumonia, urine culture pending. 12/03/2023 Echo mild concentric LVH. EF 45%. Stage 2 diastolic dysfunction. RVSP 60mm HG. 12/03/2023 Left groin pain, IV fluids for FRANKLIN, Creatinine 1.55, Baseline 0.7. 12/04/2023 Left upper thigh pain, but improved. Stop Heparin drip 2/2 low platelets. Urine culture growing E. Coli, continue Rocephin IV. Continue Rocephin/Zithromax IV for pneumonia. Creatinine 1.65, continue IV fluids, consider Nephrology consult. 12/05/2023 WBC improved to 12.5, Platelets 78. Creatinine improved to 1.53. 12/05/2023 Cardiac catheterization showed mild CAD, recommend medical management. NSTEMI 2/2 Type 2 demand ischemia. 12/06/2023 Creatinine 1.43. Blood cultures growing E. Coli, plan Rocephin IV for 10 days. Renal ultrasound shows right hydronephrosis. 12/06/2023 Dr. Lee consulted right UPJ 9mm stone. CT A/P showed LLL infiltrate, cholelithiasis, moderate right hydronephrosis, right 9mm UPJ stone, ileus, left retroperitoneal hematoma. 12/07/2023 No complaints. WBC 10. Rocephin IV for E. Coli UTI. 12/07/2023 Dr. Lee performed cystoscopy right retrograde pyelogram, right stent placement. 12/08/2023 Admit to TCU with debility, here for rehabilitation, strengthening, prior to discharge home with . [facility] Medical History (Updated 12/08/23 @ 17:[address] Arsenio Mcgregor MD) Advanced directives, counseling/discussion Anemia Anginal equivalent Aortic stenosis Asthma Atherosclerosis of coronary artery of [place] heart without angina pectoris Atrial fibrillation BPH (benign prostatic hyperplasia) Bradycardia Cholelithiasis without obstruction Closed vertical fracture of left patella Degenerative disc disease, cervical Dermatitis Dizziness Essential hypertension Extensor tenosynovitis of right wrist Fall Fracture of triquetrum of left wrist Fracture of triquetrum of right wrist Glaucoma History of colon polyps History of pneumonia History of skin cancer Hyperlipidemia Hypertension Hyponatremia Iron deficiency anemia Left facial swelling Liver disease Memory impairment Migraines Multiple fractures New onset atrial fibrillation Non-smoker Nonrheumatic aortic valve stenosis Obesity Orthostatic hypotension Osteoarthritis Paroxysmal atrial fibrillation Physical debility Primary biliary cirrhosis Psoriasis Restrictive airway disease Rheumatoid arthritis Rheumatoid arthritis Right foot pain Seasonal allergies Sinus bradycardia Thrombocytopenia Vitamin D deficiency Home Medications aspirin 81 mg tablet,delayed release 81 mg PO DAILY@0800 [facility] 12/06/16 [History Last Taken 12/02/23] travoprost 0.004 % eye drops 1 drp EACH EYE QHS glaucoma 06/02/19 [History Last Taken 06/06/20] magnesium oxide (Tobin) 1,500 mg PO QHS Supplement 08/05/20 [History Last Taken 12/01/23] cholecalciferol (vitamin D3) 50 mcg (2,000 unit) tablet 50 mcg PO DAILY Supplement 11/19/20 [History Last Taken 12/01/23] cyanocobalamin (vitamin B-12) 1,000 mcg capsule 1,000 mcg PO DAILY Supplement 11/19/20 [History Last Taken 12/01/23] Disability Placard #1 ea 12/01/21 [Rx Last Taken Unknown] Arthritis Compound 1 click topical DAILY PRN Pain #60 CLICKS 02/08/22 [Rx Last Taken Unknown] cetirizine 10 mg capsule 10 mg PO DAILY PRN allergy 10/05/22 [History Last Taken 12/01/23] albuterol sulfate 90 mcg/actuation aerosol inhaler (Ventolin HFA) 2 puff inhalation Q4H PRN Asthma #8.5 grams 04/28/23 [Rx Last Taken Unknown] nebulizer and compressor (Portable Nebulizer System) #1 ea 04/30/23 [Rx Last Taken Unknown] guaifenesin 1,200 mg tablet, extended release 12 hr 1,200 mg PO Q12H Mucus #60 tabs 06/29/23 [Rx Last Taken 12/02/23] atorvastatin 20 mg tablet 20 mg PO QHS cholesterol #90 tabs 07/07/23 [Rx Last Taken 12/01/23] ursodiol 500 mg tablet See Rx Instructions .Route .COMPLEX Liver #180 tabs 08/03/23 [Rx Last Taken 12/02/23] famotidine 20 mg tablet 20 mg PO DAILY GERD #90 tabs 08/10/23 [Rx Last Taken 12/02/23] brimonidine 0.1 % eye drops 1 drp ophthalmic (eye) DAILY Eye drops 08/15/23 [History Last Taken 12/08/23] budesonide-formoterol HFA 160 mcg-4.5 mcg/actuation aerosol inhaler (Symbicort) 2 puff inhalation BID Asthma 08/15/23 [History Last Taken 12/02/23] finasteride 5 mg tablet 5 mg PO DAILY BPH #90 tabs 08/18/23 [Rx Last Taken 12/02/23] ezetimibe 10 mg tablet 10 mg PO DAILY heart health #90 tabs 09/15/23 [Rx Last Taken 12/02/23] nitroglycerin 0.4 mg sublingual tablet 0.4 mg sublingual Q5-15M PRN chest pain #25 tabs 09/15/23 [Rx Last Taken Unknown] ferrous sulfate 325 mg (65 mg iron) tablet 325 mg PO QODAY Supplement #90 tabs 11/23/23 [Rx Last Taken 12/01/23] nzoutrju-pma-pwyvv acid 0.4 mg-lycopene 300 mcg-lutein 250 mcg tablet (Centrum Silver) 1 tab PO DAILY supplement 12/02/23 [History Last Taken 12/01/23] netarsudil 0.02 %-latanoprost 0.005 % eye drops (Rocklatan) 1 drp ophthalmic (eye) QHS Eye drops 12/02/23 [History Last Taken 12/02/23] carvedilol 6.25 mg tablet 6.25 mg PO BID BP #60 tabs 12/08/23 [Rx Last Taken Unknown] cefdinir 300 mg capsule 300 mg PO BID Antibiotic #10 caps 12/08/23 [Rx Last Taken Unknown] furosemide 40 mg tablet 40 mg PO DAILY Fluid retention #30 tabs 12/08/23 [Rx Last Taken Unknown] potassium chloride 10 mEq capsule,extended release 10 meq PO DAILY supplement #30 caps 12/08/23 [Rx Last Taken Unknown] Allergy/AdvReac Type Severity Reaction Status Date / Time metoprolol [From Lopressor] Allergy Intermediate Shortness Verified 10/20/23 09:49 of breath Penicillins Allergy Rash Verified 10/20/23 09:49 Family History Father Hypertension Grandmother Hypertension Other Alcoholism Liver disease Surgical History History of appendectomy History of cataract extraction History of colon resection History of coronary artery stent placement History of partial colectomy (~2003) Presence of stent in coronary artery Social History (Updated 12/08/23 @ 17:[address] Arsenio Mcgregor MD) household members: spouse Smoking Status: Never smoker alcohol intake: current alcohol intake frequency: holidays/special occasions only substance use type: does not use caffeine: No what type of physical activity do you participate in: weight training ROS Constitutional Constitutional: Denies chills, fever(s) or weight gain ENT HEENT: Denies headache(s), nasal congestion or nasal discharge Cardiovascular Cardiovascular: Denies chest pain or palpitations Respiratory/Chest Respiratory/Chest: Denies cough, excessive phlegm production or shortness of breath with exertion Gastrointestinal Gastrointestinal: Denies abdominal pain, nausea or vomiting Genitourinary Genitourinary: Denies dysuria Musculoskeletal Musculoskeletal: Denies joint pain or joint swelling Integumentary Integumentary: Denies rash or wounds Neurologic Neurologic: Denies focal weakness, numbness or tingling Psychiatric Psychiatric: Denies anxiety, auditory hallucinations, depression, homicidal ideation or suicidal ideation Vital Signs Vital Signs Vital Signs: 12/08/23 14:01 12/08/23 15:50 Temperature 96.9 F L Temperature Source Temporal Pulse Rate 60 Pulse Rhythm Irregular Pulse Strength Normal (2+) Respiratory Rate 16 Respiratory Effort Normal Non-Labored Respiratory Depth Normal Respiratory Pattern Normal Blood Pressure 105/57 L Blood Pressure Mean 73 Blood Pressure Source Monitor Blood Pressure Position Sitting Blood Pressure Location Right Arm Pulse Ox 96 Oxygen Delivery Method Room Air Room Air Weight Weight: 100.698 kg Body Mass Index (BMI) 30.1 Physical Exam Const alert General Appearance: cooperative HEENT normocephalic Eyes PERRL and EOMs intact bilaterally Neck supple, no JVD and no carotid bruits Resp normal respiratory effort, normal air movement and clear to auscultation bilaterally Cardio regular rate and regular rhythm GI normal to inspection, nondistended, normoactive bowel sounds, non-tender and non-distended Extremity normal capillary refill General Extremity: Negative for edema Skin no rashes or lesions noted General Skin Exam: no breakdown Psych affect normal Appearance: appropriate Assessment & Plan Assessment/Plan (1) Debility: (2) Non-STEMI (non-ST elevated myocardial infarction): (3) Encephalopathy: (4) Urinary tract infection: (5) Pneumonia: (6) Right ureteral stone: (7) Atrial fibrillation: (8) Glaucoma: (9) Allergic rhinitis: (10) Asthma: QUALIFIERS: Asthma complication type: uncomplicated Asthma persistence: unspecified Asthma severity: unspecified severity Qualified Code(s): J45.909 - Unspecified asthma, uncomplicated (11) Hyperlipidemia: QUALIFIERS: Hyperlipidemia type: unspecified Qualified Code(s): E78.5 - Hyperlipidemia, unspecified (12) GERD (gastroesophageal reflux disease): (13) BPH (benign prostatic hyperplasia): (14) Primary biliary cirrhosis: (15) CAD (coronary artery disease): PLAN: Plan 88 year old male with below past medical history hospitalized for UTI, pneumonia, encephalopathy, complicated by NSTEMI, FRANKLIN, right ureteral stone, s/p right ureteral stent, admitted to TCU with debility, here for rehabilitation, strengthening, prior to discharge home with . Debility - PT/OT. Pain - Tylenol 1000mg q6 prn pain (1-10), Arthritis cream topical daily prn. Bowel - senna/colace 1 tablet bid, Magnesium citrate 300ml po x 1 dose, Dulcolax 10mg pr daily prn. Adult immunization - Administer pneumonia vaccine, covid vaccine, flu vaccine as appropriate. DVT prophylaxis - Monitor. Asthma - Fluticasone/salmeterol 232-14 1 puff bid, Albuterol 2 puffs q4h prn. Coronary artery disease - Carvedilol 6.25mg bidcm, Aspirin 81mg daily, NTG 0.4mg sc q5m prn. Hyperlipidemia - Atorvastatin 20mg qhs. Cold sores lips - Bacitracin ointment topical bid. Glaucoma - Brimonidine 1gtt ou bid, Latanoprost 0.005% 1gtt ou qhs, Rocklatan 1gtt ou qhs. E. Coli UTI - Cefdinir 300mg bid thru 12/13/2023. Vitamin D deficiency - D3 50mcg daily. Vitamin B12 deficiency - B12 1000mcg daily. Hyperlipidemia - Zetia 10mg daily. GERD - Famotidine 20mg daily. Iron deficiency anemia - Ferrous sulfate 325mg every other day. BPH - Finasteride 5mg daily. Edema - Furosemide 40mg daily. Congestion - Mucinex 1200mg bid. Allergic rhinitis - Loratadine 10mg daily prn. Hypomagnesemia - Magnesium chloride 128mg qhs. Nutrition - MVI daily. Hypokalemia - KCL 10meq daily. Primary biliary cirrhosis - Ursodiol 500mg bidcm.
[2023-12-08] MEDS: Magnesium Citrate 300 ML PO (18:11)
[2023-12-08] MEDS: Ursodiol 250 MG Tablet 500 MG PO (18:11)
[2023-12-08 18:15] VITALS: BP 97/62; PULSE 74
[2023-12-08] MEDS: Fluticasone/Salmeterol 232-14 Inhaler 1 PUFF INHALATION (22:19)
[2023-12-08] MEDS: BRIMONIDINE TARTRATE OPHTHALMIC (22:20)
[2023-12-08] MEDS: NETARSUDIL MESYLAT/LATANOPROST 2.5 ML DROPS 1 ML EACH EYE (22:23)
[2023-12-08] MEDS: BACITRACIN 15 GM Tube 1 APPLIC TOPICAL (22:24)
[2023-12-08] MEDS: Cefdinir 300 MG Capsule PO (22:25)
[2023-12-08] MEDS: Magnesium Chloride 64 MG Delay Rel.Tablet 128 MG PO (22:26)
[2023-12-08] MEDS: guaiFENesin 1,200 MG Tablet 1200 MG PO (22:26)
[2023-12-08] MEDS: Atorvastatin Calcium 20 MG Tablet PO (22:27)
[2023-12-09] MEDS: Acetaminophen 500 MG Tablet 1000 MG PO (03:11)
[2023-12-09 05:57] LABS: Absolute Lymphocyte Count 2.49 X10^3/uL (0.83-4.51); Absolute Neutrophil Count 5.9 X10^3/uL (2.0-7.7); Basophil# 0.03 X10^3/uL; Basophil% 0.3 % (0-1); Eosinophil# 0.21 X10^3/uL; Hematocrit 28.5 % (40-54); Hemoglobin 9.2 g/dL (13.0-16.5); Lymphocyte # 2.49 X10^3/ul (0.83-4.51); Mean Corp Hgb Conc 32.3 g/dL (32-36); Mean Corpuscular Hgb 30.4 pg (27.0-32.0); Mean Corpuscular Volume 94.1 fL (80-94); Mean Platelet Vol. 10.1 fl (6.2-12.0); Monocyte# 1.64 X10^3/uL; Monocyte% 15.8 % (0-10); NRBC Flagged by Analyzer 0 % (0-5); Neutrophil # 5.92 X10^3/uL (2.7-7.7); Neutrophil % 57.1 % (47-70); POSITIVE DIFFERENTIAL YES; POSITIVE MORPHOLOGY YES; Platelet Count 158 K/mm3 (150-450); RBC Distribution Width CV 15.4 % (11.6-14.6); RBC Distribution Width SD 53.1 fl (35.1-43.9); Red Blood Count 3.03 M/mm3 (4.6-6.2); White Blood Count 10.4 K/mm3 (4.4-11.0)
[2023-12-09 06:12] LABS: Differential Indicated SCAN CRITERIA MET
[2023-12-09 06:36] LABS: Anion Gap 4 (5-15); BUN 28 mg/dL (7-18); BUN/Creat Ratio 22.4 RATIO (10-20); Calcium,Total 8.8 mg/dL (8.5-10.1); Chloride 103 mmol/L (98-107); Creatinine, Serum 1.25 mg/dL (0.70-1.30); EST Glomerular Filtration Rate 58 mL/min (>60); Est Glom Filt Rate - Afr Amer 70 mL/min (>60); Glucose 112 mg/dL (74-106); Potassium 3.5 mmol/L (3.5-5.1); Sodium Level 138 mmol/L (136-145)
[2023-12-09 06:45] LABS: Differential Comment SCANNED
[2023-12-09 08:00] VITALS: BP 122/60
[2023-12-09] MEDS: Multivitamins,Ther W-Minerals Tablet 1 TABLET PO (09:48)
[2023-12-09] MEDS: Aspirin E.C. 81 MG Tablet PO (09:48)
[2023-12-09] MEDS: Carvedilol 6.25 MG Tablet PO ×2 (09:48→17:12)
[2023-12-09] MEDS: Ursodiol 250 MG Tablet 500 MG PO ×2 (09:49→17:12)
[2023-12-09] MEDS: Fluticasone/Salmeterol 232-14 Inhaler 1 PUFF INHALATION ×2 (09:50→21:36)
[2023-12-09] MEDS: BRIMONIDINE TARTRATE OPHTHALMIC ×2 (09:50→21:37)
[2023-12-09] MEDS: BACITRACIN 15 GM Tube 1 APPLIC TOPICAL ×2 (09:50→21:36)
[2023-12-09] MEDS: Potassium Chloride Oral Tablet 10 MEQ PO (09:51)
[2023-12-09] MEDS: Furosemide 40 MG Tablet PO (09:51)
[2023-12-09] MEDS: guaiFENesin 1,200 MG Tablet 1200 MG PO ×2 (09:52→21:36)
[2023-12-09] MEDS: Cefdinir 300 MG Capsule PO ×2 (09:52→21:35)
[2023-12-09] MEDS: Famotidine 20 MG Tablet PO (09:52)
[2023-12-09] MEDS: Finasteride 5 MG Tablet PO (09:53)
[2023-12-09] MEDS: Senna/Docusate Sodium 1 Tablet PO ×2 (09:53→21:35)
[2023-12-09] MEDS: Tuberculin,Purif.prot.deriv. 50 TU/ML Vial 0.1 ML ID (09:54)
[2023-12-09] MEDS: Cyanocobalamin 500 MCG Tablet 1000 MCG PO (09:55)
[2023-12-09] MEDS: Ezetimibe 10 MG Tablet PO (09:55)
[2023-12-09] MEDS: Cholecalciferol (VIT D3) 25 MCG TABLET (1,000 UNITS) 50 MCG PO (09:55)
--- NOTE | 2023-12-09 11:35 | PCM.PN.DRR ---
TCU RX Drug Regimen Review Subjective/Objective Subjective/Objective: Subjective: 88 YOM admitted to TCU 12/08/23 s/p hospitalization for encephalopathy/UTI/pneumonia. Hospitalization was complicated by NSTEMI. Patient admitted to TCU for strengthening and rehabilitation prior to discharge home where he resides with his . Objective: Allergies metoprolol [From Lopressor] Allergy (Intermediate, Verified 10/20/23 09:49) Shortness of breath Penicillins Allergy (Verified 10/20/23 09:49) Rash Current Medications Generic Name Dose Route Start Last Admin Trade Name Freq PRN Reason Stop Dose Admin Acetaminophen 1,000 mg 12/08/23 18:01 12/09/23 03:11 Acetaminophen 500 Mg Tablet PO 1,000 mg Q6H PRN PRN Administration Pain Score 1-10 Albuterol Sulfate 2 puff 12/08/23 13:57 Albuterol Sulfate 8 Gm Inhaler (60 Puffs) INHALATION Q4H PRN Asthma Aspirin 81 mg 12/09/23 08:00 12/09/23 09:48 Aspirin E.C. 81 Mg Tablet PO 81 mg DAILY@0800 JOSE Administration Atorvastatin Calcium 20 mg 12/08/23 22:00 12/08/23 22:27 Atorvastatin Calcium 20 Mg Tablet PO 20 mg QHS JOSE Administration Bacitracin 1 applic 12/08/23 22:00 12/09/23 09:50 Bacitracin 15 Gm Tube TOPICAL 1 applic BID [facility] Administration Protocol Bisacodyl 10 mg 12/08/23 14:01 Bisacodyl 10 Mg Suppository RC DAILY PRN constipation Brimonidine Tartrate 1 ml 12/08/23 22:00 12/09/23 09:50 Brimonidine Tartrate 15 Ml Drops OPHTHALMIC 1 ml BID JOSE Administration Carvedilol 6.25 mg 12/08/23 17:00 12/09/23 09:48 Carvedilol 6.25 Mg Tablet PO 6.25 mg BIDCM [facility] Administration Protocol Cefdinir 300 mg 12/08/23 22:00 12/09/23 09:52 Cefdinir 300 Mg Capsule PO 12/13/23 10:01 300 mg BID JOSE Administration Cholecalciferol 50 mcg 12/09/23 10:00 12/09/23 09:55 Cholecalciferol (Vit D3) 25 Mcg Tablet (1,000 Units) PO 50 mcg DAILY JOSE Administration Compound Med 1 click 12/08/23 14:05 Arthritis Pain Compound 60 Click Tube TOPICAL DAILY PRN Pain Cyanocobalamin 1,000 mcg 12/09/23 10:00 12/09/23 09:55 Cyanocobalamin 500 Mcg Tablet PO 1,000 mcg DAILY JOSE Administration Ezetimibe 10 mg 12/09/23 10:00 12/09/23 09:55 Ezetimibe 10 Mg Tablet PO 10 mg DAILY JOSE Administration Famotidine 20 mg 12/09/23 10:00 12/09/23 09:52 Famotidine 20 Mg Tablet PO 20 mg DAILY JOSE Administration Ferrous Sulfate 325 mg 12/10/23 10:00 Ferrous Sulfate 325 Mg Tablet PO QODAY [facility] Finasteride 5 mg 12/09/23 10:00 12/09/23 09:53 Finasteride 5 Mg Tablet PO 5 mg DAILY JOSE Administration Furosemide 40 mg 12/09/23 10:00 12/09/23 09:51 Furosemide 40 Mg Tablet PO 40 mg DAILY JOSE Administration Protocol Guaifenesin 1,200 mg 12/08/23 22:00 12/09/23 09:52 Guaifenesin 1,200 Mg Tablet PO 1,200 mg 1000,2200 JOSE Administration Loratadine 10 mg 12/08/23 13:45 Loratadine 10 Mg Tablet PO DAILY PRN allergy Magnesium Chloride 128 mg 12/08/23 22:00 12/08/23 22:26 Magnesium Chloride 64 Mg Delay Rel.Tablet PO 128 mg QHS JOSE Administration Magnesium Citrate 300 ml 12/08/23 18:00 12/08/23 18:11 Magnesium Citrate 300 Ml PO 300 ml X1 JOSE Administration Multivitamins/Minerals 1 tablet 12/09/23 08:00 12/09/23 09:48 Multivitamins,Ther W-Minerals Tablet PO 1 tablet DAILYCM JOSE Administration Nitroglycerin 0.4 mg 12/08/23 14:04 Nitroglycerin (Inpatient Use) 0.4 Mg Tab.Subl SL Q5M PRN CARDIAC/CHEST PAIN Potassium Chloride 10 meq 12/09/23 10:00 12/09/23 09:51 Potassium Chloride Oral Tablet 10 Meq PO 10 meq DAILY JOSE Administration Fluticasone/Salmeterol 1 puff 12/08/23 22:00 12/09/23 09:50 Fluticasone/Salmeterol 232-14 Inhaler INHALATION 1 puff BID JOSE Administration Senna/Docusate Sodium 1 tablet 12/08/23 22:00 12/09/23 09:53 Senna/Docusate Sodium 1 Tablet PO 1 tablet BID JOSE Administration Sodium Chloride 10 - 40 ml 12/08/23 14:07 0.9% Saline Lock 10 Ml Syringe IV UD PRN SALINE FLUSH Tuberculin PPD 0.1 ml 12/16/23 10:00 Tuberculin,Purif.Prot.Deriv. 50 Tu/Ml Vial ID 12/16/23 10:01 X1 ONE Ursodiol 500 mg 12/08/23 17:00 12/09/23 09:49 Ursodiol 250 Mg Tablet PO 500 mg BIDCM JOSE Administration Problem List (Updated 12/08/23 @ 17:[address] Arsenio Mcgregor MD) Primary biliary cirrhosis (Acute) BPH (benign prostatic hyperplasia) (Acute) GERD (gastroesophageal reflux disease) (Acute) Allergic rhinitis (Acute) Atrial fibrillation (Acute) Right ureteral stone (Acute) Pneumonia (Acute) Encephalopathy (Acute) Debility (Acute) Non-STEMI (non-ST elevated myocardial infarction) (Acute) Urinary tract infection (Acute) Glaucoma (Chronic) Asthma (Chronic) Hyperlipidemia (Chronic) Vital Signs Temp Pulse Resp BP Pulse Ox O2 Del Method 96.9 F L 74 16 97/62 96 Room Air 12/08/23 14:01 12/08/23 18:15 12/08/23 14:01 12/08/23 18:15 12/08/23 14:01 12/09/23 10:00 Oxygen Delivery Method Room Air Weight: 100.698 kg Body Mass Index (BMI) 30.1 Sodium 138 mmol/L (136-145) 12/09/23 05:34 Potassium 3.5 mmol/L (3.5-5.1) 12/09/23 05:34 Chloride 103 mmol/L (98-107) 12/09/23 05:34 Carbon Dioxide 31.0 mmol/L (21.0-32.0) 12/09/23 05:34 Anion Gap 4 (5-15) L 12/09/23 05:34 BUN 28 mg/dL (7-18) H 12/09/23 05:34 Creatinine 1.25 mg/dL (0.70-1.30) 12/09/23 05:34 Est GFR (MDRD) Af Amer 70 mL/min (>60) 12/09/23 05:34 Est GFR (MDRD) Non-Af 58 mL/min (>60) L 12/09/23 05:34 BUN/Creatinine Ratio 22.4 RATIO (10-20) H 12/09/23 05:34 Glucose 112 mg/dL (74-106) H 12/09/23 05:34 Assessment/Plan: 1. Pain: Tylenol 1000mg PO Q6h PRN Pain 1-10, Arthritis cream topically Daily PRN. Please continue to monitor for increased/decreased S/S pain, PRN medication usage, local redness/skin irritation with topical cream use. - The patient had used 1 dose of PRN Tylenol since admission for pain rated 1/10. Pain reassessment rated 0/10. Patient's pain appears managed at this time. 2.UTI: Cefdinir 300mg PO BID thru 12/13/23. Please continue to monitor for resolution of infection, microbiology data as clinically indicated, renal function (CrCl 52 mL/min on 12/08). 3. CAD/ HLD/CHF: Aspirin 81mg PO Daily, Lipitor 20mg PO QHS, Coreg 6.25mg PO BID, Zetia 10mg PO Daily, Lasix 40mg PO Daily, KCl 10mEq PO Daily, Nitrostat Q5m PRN. Please continue to monitor BP (last 97/62), pulse (last 74), lipid panel annually or sooner if clinically indicated (last labs WNL, from 07/2022), S/S bleeding/bruising, potassium level (last 3.5 on 12/08), I/O. 4. Asthma: Albuterol inhaler 2 puff Q4h PRN, Airduo 1 puff BID. Please continue to monitor respiratory rate (last 16/min) HR ( last74 BPM), S/S thrush with inhaled corticosteroid use. 5. GERD: Pepcid 20mg PO Daily. Please continue to monitor CrCl (last 52mL/min), S/S GERD flare-ups. may also encourage non-pharmacologic treatments to help minimize GERD exacerbations, as well. 6. Primary Biliary Cirrhosis: Ursodiol 500mg PO BIDCM. Please continue to monitor for heartburn, nausea/vomiting. 7. BPH: Finasteride 5mg PO Daily. Please continue to monitor BP, urinary retention. 8. Allergic Rhinitis/ Congestion: Loratadine 10mg PO Daily PRN, Mucinex 1200mg PO BID. Please continue to monitor PRn medication usage, medication effectiveness. 9. Cold Sore: Bacitracin Ointment topically BID. Please continue to monitor for resolution of infection. 10. Glaucoma: Brimonidine 1gtt OU BID, Netarsudil 1gtt OU QHS. Please continue to monitor for progression of disease, eye irritation/redness, follow-up with ophthalmology as clinically indicated. 11. General Wellness: Vitamin D 50mcg PO Daily, Vitamin B12 1000mcg PO Daily, Ferrous sulfate 325mg PO Q48h, Magnesium Chloride 128mg PO QHS, MVI 1 tab PO Daily. 12. Bowel: Senna/Docusate 1 tab PO BID, Dulcolax 10mg MA Daily PRN, Magnesium Citrate 300mL PO x1. Please continue to monitor for increased/decreased constipation and/or diarrhea. - Patient had a bowel movement today per EMR review. Assessment/Plan for indications treated with psychotropic medications: The patient is not currently being maintained on psychotropic medications at time of TCU medlist review. Medical chart and medication regimen reviewed. The following medication irregularities or issues were identified: 1. Patient has not had a lipid panel done since 07/2022 per [facility] EMR review. If clinically indicated, please consider obtaining a lipid panel if clinically indicated, thank you. Date Date of Note:: 12/09/23
--- NOTE | 2023-12-09 12:13 | CASEMGMT ---
Social Work Met with pt. to complete initial assessment. Introduced self and role. Verified patient contacts. Educated to [facility] insurance with next review date is 12/15/23 and explained continued stay is not guaranteed with each review. Pt stated he remembers how the insurance work as he had a rehab stay before. Patient confirmed code status as full code and expressed that his and family understand his wishes. Pt. stated he recently gave copies of advanced directives to hospital. Patient's goal is to return home with . His only concerns are setting up medications and handling finances. This worker updated ST on these concerns and ST will address. SW will continue to follow for DC planning. SILVINA Clarke
[2023-12-09 14:43] VITALS: BP 101/60; PULSE 62; RESP 18; TEMP 36.4; O2SAT 98
[2023-12-09] MEDS: NETARSUDIL MESYLAT/LATANOPROST 2.5 ML DROPS 1 ML EACH EYE (21:33)
[2023-12-09] MEDS: Atorvastatin Calcium 20 MG Tablet PO (21:35)
[2023-12-09] MEDS: Magnesium Chloride 64 MG Delay Rel.Tablet 128 MG PO (21:35)
[2023-12-10 07:07] LABS: Hematocrit 29.8 % (40-54); Hemoglobin 9.6 g/dL (13.0-16.5)
[2023-12-10] MEDS: Carvedilol 6.25 MG Tablet PO ×2 (09:10→16:25)
[2023-12-10] MEDS: Multivitamins,Ther W-Minerals Tablet 1 TABLET PO (09:11)
[2023-12-10] MEDS: BACITRACIN 15 GM Tube 1 APPLIC TOPICAL ×2 (09:11→21:43)
[2023-12-10] MEDS: BRIMONIDINE TARTRATE OPHTHALMIC ×2 (09:11→21:43)
[2023-12-10] MEDS: Ursodiol 250 MG Tablet 500 MG PO ×2 (09:11→16:25)
[2023-12-10] MEDS: Aspirin E.C. 81 MG Tablet PO (09:11)
[2023-12-10] MEDS: Fluticasone/Salmeterol 232-14 Inhaler 1 PUFF INHALATION ×2 (09:12→21:44)
[2023-12-10] MEDS: Ferrous Sulfate 325 MG Tablet PO (09:12)
[2023-12-10] MEDS: Cefdinir 300 MG Capsule PO ×2 (09:13→21:44)
[2023-12-10] MEDS: Potassium Chloride Oral Tablet 10 MEQ PO (09:13)
[2023-12-10] MEDS: Famotidine 20 MG Tablet PO (09:13)
[2023-12-10] MEDS: Furosemide 40 MG Tablet PO (09:13)
[2023-12-10] MEDS: guaiFENesin 1,200 MG Tablet 1200 MG PO ×2 (09:13→21:45)
[2023-12-10] MEDS: Senna/Docusate Sodium 1 Tablet PO ×2 (09:14→21:46)
[2023-12-10] MEDS: Finasteride 5 MG Tablet PO (09:14)
[2023-12-10] MEDS: Cholecalciferol (VIT D3) 25 MCG TABLET (1,000 UNITS) 50 MCG PO (09:14)
[2023-12-10] MEDS: Ezetimibe 10 MG Tablet PO (09:14)
[2023-12-10] MEDS: Cyanocobalamin 500 MCG Tablet 1000 MCG PO (09:14)
--- NOTE | 2023-12-10 12:21 | NURSING ---
UA and culture ordered d/t pt c/o urinary frequency and burning. dr marrero notified
[2023-12-10 13:32] LABS: Color, Urine Yellow (Yellow); Glucose, Dipstick Normal (Normal); Ketone-Dipstick Negative (Negative); Leukocyte Esterase-Dipstick 500 /ul (Negative); Nitrite-Dipstick Negative (Negative); Occult Blood-Urine 250 /ul (Negative); Protein-Dipstick 30 mg/dl (Negative); Urine Bilirubin Dipstick Negative (Negative); Urine Clarity Sl. Cloudy (Clear); Urine Urobilinogen Normal (Normal)
[2023-12-10 13:41] LABS: Bacteria 1+ /hpf (None Seen); Hyaline Cast 0-5 SEEN /lpf (0-5); Mucous, Urine 1+ /hpf (<or=2+); Red Blood Cells-Urine 25-50 SEEN /hpf (0-5); Squamous Epithelial Cells - UA 0-5 SEEN /hpf (0-5); White Blood Cells 50-100 SEEN /hpf (0-5)
[2023-12-10 14:51] VITALS: BP 102/55; PULSE 70; RESP 25; TEMP 36.4; O2SAT 96
[2023-12-10] MEDS: NETARSUDIL MESYLAT/LATANOPROST 2.5 ML DROPS 1 ML EACH EYE (21:43)
[2023-12-10] MEDS: Atorvastatin Calcium 20 MG Tablet PO (21:45)
[2023-12-10] MEDS: Magnesium Chloride 64 MG Delay Rel.Tablet 128 MG PO (21:46)
[2023-12-10] MEDS: Acetaminophen 500 MG Tablet 1000 MG PO (21:50)
--- NOTE | 2023-12-11 05:58 | NURSING ---
4oz of warmed prune juice w/ one pad of butter given per pt request for c/o constipation.
[2023-12-11 08:02] VITALS: BP 112/56; PULSE 60; RESP 17; TEMP 37; O2SAT 98
[2023-12-11] MEDS: Ursodiol 250 MG Tablet 500 MG PO ×2 (08:05→17:22)
[2023-12-11] MEDS: Aspirin E.C. 81 MG Tablet PO (08:05)
[2023-12-11] MEDS: Carvedilol 6.25 MG Tablet PO ×2 (08:05→17:22)
[2023-12-11] MEDS: Multivitamins,Ther W-Minerals Tablet 1 TABLET PO (08:06)
[2023-12-11] MEDS: guaiFENesin 1,200 MG Tablet 1200 MG PO ×2 (08:07→20:44)
[2023-12-11] MEDS: Cefdinir 300 MG Capsule PO ×2 (08:07→20:43)
[2023-12-11] MEDS: Ezetimibe 10 MG Tablet PO (08:08)
[2023-12-11] MEDS: Cholecalciferol (VIT D3) 25 MCG TABLET (1,000 UNITS) 50 MCG PO (08:08)
[2023-12-11] MEDS: Senna/Docusate Sodium 1 Tablet PO (08:08)
[2023-12-11] MEDS: Cyanocobalamin 500 MCG Tablet 1000 MCG PO (08:08)
[2023-12-11] MEDS: Finasteride 5 MG Tablet PO (08:08)
[2023-12-11] MEDS: Famotidine 20 MG Tablet PO (08:09)
[2023-12-11] MEDS: Furosemide 40 MG Tablet PO (08:09)
[2023-12-11] MEDS: Potassium Chloride Oral Tablet 10 MEQ PO (08:09)
[2023-12-11] MEDS: Fluticasone/Salmeterol 232-14 Inhaler 1 PUFF INHALATION ×2 (08:10→20:37)
[2023-12-11] MEDS: BACITRACIN 15 GM Tube 1 APPLIC TOPICAL ×2 (08:10→20:37)
[2023-12-11] MEDS: BRIMONIDINE TARTRATE OPHTHALMIC ×2 (08:10→20:38)
[2023-12-11] MEDS: NETARSUDIL MESYLAT/LATANOPROST 2.5 ML DROPS 1 ML EACH EYE (20:39)
[2023-12-11] MEDS: Senna/Docusate Sodium 1 Tablet 2 TABLET PO (20:43)
[2023-12-11] MEDS: Magnesium Chloride 64 MG Delay Rel.Tablet 128 MG PO (20:44)
[2023-12-11] MEDS: Atorvastatin Calcium 20 MG Tablet PO (20:44)
[2023-12-12] MEDS: Acetaminophen 500 MG Tablet 1000 MG PO ×2 (01:34→22:36)
[2023-12-12 06:03] VITALS: RESP 16
[2023-12-12 09:43] VITALS: BP 107/57; PULSE 78; RESP 16; TEMP 36.7; O2SAT 96
[2023-12-12] MEDS: Cyanocobalamin 500 MCG Tablet 1000 MCG PO (09:47)
[2023-12-12] MEDS: Senna/Docusate Sodium 1 Tablet 2 TABLET PO (09:47)
[2023-12-12] MEDS: Aspirin E.C. 81 MG Tablet PO (09:48)
[2023-12-12] MEDS: Furosemide 40 MG Tablet PO (09:48)
[2023-12-12] MEDS: Finasteride 5 MG Tablet PO (09:48)
[2023-12-12] MEDS: Cefdinir 300 MG Capsule PO ×2 (09:48→22:38)
[2023-12-12] MEDS: Cholecalciferol (VIT D3) 25 MCG TABLET (1,000 UNITS) 50 MCG PO (09:48)
[2023-12-12] MEDS: Famotidine 20 MG Tablet PO (09:48)
[2023-12-12] MEDS: Carvedilol 6.25 MG Tablet PO ×2 (09:48→17:58)
[2023-12-12] MEDS: Ursodiol 250 MG Tablet 500 MG PO ×2 (09:48→17:58)
[2023-12-12] MEDS: Ferrous Sulfate 325 MG Tablet PO (09:48)
[2023-12-12] MEDS: Multivitamins,Ther W-Minerals Tablet 1 TABLET PO (09:48)
[2023-12-12] MEDS: Fluticasone/Salmeterol 232-14 Inhaler 1 PUFF INHALATION ×2 (09:49→22:35)
[2023-12-12] MEDS: BACITRACIN 15 GM Tube 1 APPLIC TOPICAL ×2 (09:49→22:35)
[2023-12-12] MEDS: BRIMONIDINE TARTRATE OPHTHALMIC ×2 (09:49→22:32)
[2023-12-12] MEDS: Ezetimibe 10 MG Tablet PO (09:49)
[2023-12-12] MEDS: Petrolatum 33% Tube 1 APPLIC TOPICAL ×2 (09:52→22:37)
[2023-12-12] MEDS: Potassium Chloride Oral Tablet 10 MEQ PO (10:43)
--- NOTE | 2023-12-12 11:30 | NURSING ---
Chrome Tanner Note; Activity Asset: Dinorah Hooks prefers to be called' FABIANO. Al is independent in his choice of daily activities. He stated he has glaucoma and its hard for him to read papers so he uses his phone or tablet. He worked for the [employer] for over 30 years. His senior pharmacy technician will visits along with his family and he welcomes visits from out engineering program manager and therapy dog. Staff will remind him of weekly activities and respect his right to say no.
[2023-12-12 17:59] VITALS: BP 115/66; PULSE 62
--- NOTE | 2023-12-12 18:16 | NURSING ---
dr marrero aware of urine cx results, no new orders, below infection level.
--- NOTE | 2023-12-12 18:19 | NURSING ---
pt requesting mucinex be dc'd, states he is not congested and refused. dr marrero updated, med dc'd
[2023-12-12] MEDS: NETARSUDIL MESYLAT/LATANOPROST 2.5 ML DROPS 1 ML EACH EYE (22:36)
[2023-12-12] MEDS: Magnesium Chloride 64 MG Delay Rel.Tablet 128 MG PO (22:36)
[2023-12-12] MEDS: Atorvastatin Calcium 20 MG Tablet PO (22:38)
[2023-12-13 03:23] VITALS: TEMP 36.4
--- NOTE | 2023-12-13 03:24 | NURSING ---
Pt calls requesting Tylenol. Verbalizes concerns w/ pain possibly to the kidney. Pt places his hand just have his rt buttock and that the pain is achy. In no acute distress. Would like his temp checked- 97.5, temporal. Denies any dysuria. Unable to observe the color of his urine d/t visual impairment. Staff denies any hematuria. This nurse informed pt the kidney lies behind the lower ribcage. Pt expresses relief. Next dose of Tylenol is not due for more than an hour. Pt verbalizes understanding. Will continue to monitor.
[2023-12-13] MEDS: Acetaminophen 500 MG Tablet 1000 MG PO ×2 (05:05→21:16)
[2023-12-13 09:17] VITALS: BMI 30.4
[2023-12-13 10:41] VITALS: BP 112/55; PULSE 67; RESP 18; TEMP 36.2; O2SAT 97
[2023-12-13] MEDS: Multivitamins,Ther W-Minerals Tablet 1 TABLET PO (10:43)
[2023-12-13] MEDS: Aspirin E.C. 81 MG Tablet PO (10:43)
[2023-12-13] MEDS: Carvedilol 6.25 MG Tablet PO ×2 (10:43→17:52)
[2023-12-13] MEDS: Ursodiol 250 MG Tablet 500 MG PO ×2 (10:44→17:52)
[2023-12-13] MEDS: Potassium Chloride Oral Tablet 10 MEQ PO (10:44)
[2023-12-13] MEDS: Cefdinir 300 MG Capsule PO (10:44)
[2023-12-13] MEDS: Famotidine 20 MG Tablet PO (10:44)
[2023-12-13] MEDS: Furosemide 40 MG Tablet PO (10:44)
[2023-12-13] MEDS: Cyanocobalamin 500 MCG Tablet 1000 MCG PO (10:45)
[2023-12-13] MEDS: Finasteride 5 MG Tablet PO (10:45)
[2023-12-13] MEDS: Cholecalciferol (VIT D3) 25 MCG TABLET (1,000 UNITS) 50 MCG PO (10:45)
[2023-12-13] MEDS: Senna/Docusate Sodium 1 Tablet 2 TABLET PO (10:45)
[2023-12-13] MEDS: Ezetimibe 10 MG Tablet PO (10:46)
[2023-12-13] MEDS: COVID VAC 23-24(12UP)(ANDU)/PF 50 MCG/0.5 ML SYRINGE IM (10:50)
[2023-12-13] MEDS: BRIMONIDINE TARTRATE OPHTHALMIC ×2 (10:52→21:11)
[2023-12-13] MEDS: Petrolatum 33% Tube 1 APPLIC TOPICAL ×2 (10:52→21:12)
[2023-12-13] MEDS: Fluticasone/Salmeterol 232-14 Inhaler 1 PUFF INHALATION ×2 (10:53→21:09)
--- NOTE | 2023-12-13 16:11 | CASEMGMT ---
Social Work SW met with patient at bedside to complete BIM and PHQ-2 for MDS assessment. Patient complete BIM () and PHQ-2 (0/0). RAPHAEL Galeas
[2023-12-13 17:56] VITALS: BP 114/65; PULSE 61
[2023-12-13] MEDS: NETARSUDIL MESYLAT/LATANOPROST 2.5 ML DROPS 1 ML EACH EYE (21:11)
[2023-12-13] MEDS: Atorvastatin Calcium 20 MG Tablet PO (21:12)
[2023-12-13] MEDS: Magnesium Chloride 64 MG Delay Rel.Tablet 128 MG PO (21:12)
[2023-12-14] MEDS: Acetaminophen 500 MG Tablet 1000 MG PO ×2 (03:57→22:34)
[2023-12-14 04:04] VITALS: RESP 16
[2023-12-14] MEDS: Aspirin E.C. 81 MG Tablet PO (09:22)
[2023-12-14] MEDS: Carvedilol 6.25 MG Tablet PO ×2 (09:22→17:45)
[2023-12-14] MEDS: Potassium Chloride Oral Tablet 10 MEQ PO (09:23)
[2023-12-14] MEDS: Ferrous Sulfate 325 MG Tablet PO (09:23)
[2023-12-14] MEDS: Multivitamins,Ther W-Minerals Tablet 1 TABLET PO (09:23)
[2023-12-14] MEDS: Ursodiol 250 MG Tablet 500 MG PO ×2 (09:23→17:45)
[2023-12-14] MEDS: Cholecalciferol (VIT D3) 25 MCG TABLET (1,000 UNITS) 50 MCG PO (09:24)
[2023-12-14] MEDS: Furosemide 40 MG Tablet PO (09:24)
[2023-12-14] MEDS: Ezetimibe 10 MG Tablet PO (09:24)
[2023-12-14] MEDS: Cyanocobalamin 500 MCG Tablet 1000 MCG PO (09:24)
[2023-12-14] MEDS: Famotidine 20 MG Tablet PO (09:24)
[2023-12-14] MEDS: Finasteride 5 MG Tablet PO (09:24)
[2023-12-14] MEDS: BRIMONIDINE TARTRATE OPHTHALMIC ×2 (09:25→22:34)
[2023-12-14] MEDS: Fluticasone/Salmeterol 232-14 Inhaler 1 PUFF INHALATION ×2 (09:25→22:33)
[2023-12-14] MEDS: Petrolatum 33% Tube 1 APPLIC TOPICAL ×2 (09:32→22:35)
[2023-12-14] MEDS: Senna/Docusate Sodium 1 Tablet 2 TABLET PO (13:57)
[2023-12-14 16:00] VITALS: BP 99/50; PULSE 61; RESP 17; TEMP 37.4; O2SAT 97
[2023-12-14] MEDS: NETARSUDIL MESYLAT/LATANOPROST 2.5 ML DROPS 1 ML EACH EYE (22:34)
[2023-12-14] MEDS: Atorvastatin Calcium 20 MG Tablet PO (22:35)
[2023-12-14] MEDS: Magnesium Chloride 64 MG Delay Rel.Tablet 128 MG PO (22:35)
[2023-12-15] MEDS: Acetaminophen 500 MG Tablet 1000 MG PO ×3 (05:04→23:18)
[2023-12-15 06:32] VITALS: RESP 16
[2023-12-15] MEDS: Carvedilol 6.25 MG Tablet PO ×2 (09:02→18:31)
[2023-12-15] MEDS: Ursodiol 250 MG Tablet 500 MG PO ×2 (09:02→18:31)
[2023-12-15] MEDS: Multivitamins,Ther W-Minerals Tablet 1 TABLET PO (09:02)
[2023-12-15] MEDS: Aspirin E.C. 81 MG Tablet PO (09:02)
[2023-12-15] MEDS: Furosemide 40 MG Tablet PO (09:03)
[2023-12-15] MEDS: Potassium Chloride Oral Tablet 10 MEQ PO (09:03)
[2023-12-15] MEDS: BRIMONIDINE TARTRATE OPHTHALMIC ×2 (09:03→23:15)
[2023-12-15] MEDS: Famotidine 20 MG Tablet PO (09:03)
[2023-12-15] MEDS: Fluticasone/Salmeterol 232-14 Inhaler 1 PUFF INHALATION ×2 (09:03→23:19)
[2023-12-15] MEDS: Cyanocobalamin 500 MCG Tablet 1000 MCG PO (09:04)
[2023-12-15] MEDS: Finasteride 5 MG Tablet PO (09:04)
[2023-12-15] MEDS: Ezetimibe 10 MG Tablet PO (09:04)
[2023-12-15] MEDS: Cholecalciferol (VIT D3) 25 MCG TABLET (1,000 UNITS) 50 MCG PO (09:04)
[2023-12-15 14:54] VITALS: BP 98/49; PULSE 64; RESP 16; TEMP 35.8; O2SAT 97
[2023-12-15] MEDS: Petrolatum 33% Tube 1 APPLIC TOPICAL (23:16)
[2023-12-15] MEDS: NETARSUDIL MESYLAT/LATANOPROST 2.5 ML DROPS 1 ML EACH EYE (23:19)
[2023-12-15] MEDS: Magnesium Chloride 64 MG Delay Rel.Tablet 128 MG PO (23:19)
[2023-12-15] MEDS: Atorvastatin Calcium 20 MG Tablet PO (23:20)
[2023-12-16 05:47] LABS: Absolute Lymphocyte Count 1.97 X10^3/uL (0.83-4.51); Absolute Neutrophil Count 3.2 X10^3/uL (2.0-7.7); Basophil# 0.05 X10^3/uL; Basophil% 0.8 % (0-1); Eosinophil# 0.45 X10^3/uL; Eosinophils% 6.8 % (0-5); Hematocrit 29.2 % (40-54); Hemoglobin 9.2 g/dL (13.0-16.5); Lymphocyte # 1.97 X10^3/ul (0.83-4.51); Lymphocyte % 29.6 % (19-41); Mean Corp Hgb Conc 31.5 g/dL (32-36); Mean Corpuscular Hgb 30.3 pg (27.0-32.0); Mean Corpuscular Volume 96.1 fL (80-94); Mean Platelet Vol. 9.4 fl (6.2-12.0); Monocyte# 0.91 X10^3/uL; Monocyte% 13.7 % (0-10); NRBC Flagged by Analyzer 0 % (0-5); Neutrophil # 3.24 X10^3/uL (2.7-7.7); Neutrophil % 48.6 % (47-70); Platelet Count 240 K/mm3 (150-450); RBC Distribution Width CV 15.6 % (11.6-14.6); RBC Distribution Width SD 54.5 fl (35.1-43.9); Red Blood Count 3.04 M/mm3 (4.6-6.2); White Blood Count 6.7 K/mm3 (4.4-11.0)
[2023-12-16 07:01] LABS: Anion Gap 3 (5-15); BUN 27 mg/dL (7-18); BUN/Creat Ratio 25.7 RATIO (10-20); Calcium,Total 8.5 mg/dL (8.5-10.1); Chloride 105 mmol/L (98-107); Creatinine, Serum 1.05 mg/dL (0.70-1.30); EST Glomerular Filtration Rate 71 mL/min (>60); Est Glom Filt Rate - Afr Amer 86 mL/min (>60); Estimated Creatinine Clearance 62.38 ml/min; Glucose 94 mg/dL (74-106); Potassium 4.1 mmol/L (3.5-5.1); Sodium Level 137 mmol/L (136-145)
--- NOTE | 2023-12-16 08:54 | NURSING ---
Wildland Fire [employer] Specialist Note; MDS for 12/15/2023 Complete
[2023-12-16 10:00] VITALS: RESP 16
[2023-12-16 10:37] VITALS: BP 108/55; PULSE 68; RESP 16; TEMP 36.4; O2SAT 98
[2023-12-16] MEDS: Carvedilol 6.25 MG Tablet PO ×2 (10:39→18:01)
[2023-12-16] MEDS: Multivitamins,Ther W-Minerals Tablet 1 TABLET PO (10:40)
[2023-12-16] MEDS: Ursodiol 250 MG Tablet 500 MG PO ×2 (10:40→18:00)
[2023-12-16] MEDS: Aspirin E.C. 81 MG Tablet PO (10:40)
[2023-12-16] MEDS: BRIMONIDINE TARTRATE OPHTHALMIC ×2 (10:41→21:24)
[2023-12-16] MEDS: Petrolatum 33% Tube 1 APPLIC TOPICAL ×2 (10:41→21:23)
[2023-12-16] MEDS: Famotidine 20 MG Tablet PO (10:42)
[2023-12-16] MEDS: Potassium Chloride Oral Tablet 10 MEQ PO (10:42)
[2023-12-16] MEDS: Ferrous Sulfate 325 MG Tablet PO (10:42)
[2023-12-16] MEDS: Furosemide 40 MG Tablet PO (10:42)
[2023-12-16] MEDS: Finasteride 5 MG Tablet PO (10:42)
[2023-12-16] MEDS: Cyanocobalamin 500 MCG Tablet 1000 MCG PO (10:43)
[2023-12-16] MEDS: Cholecalciferol (VIT D3) 25 MCG TABLET (1,000 UNITS) 50 MCG PO (10:43)
[2023-12-16] MEDS: Fluticasone/Salmeterol 232-14 Inhaler 1 PUFF INHALATION ×2 (10:44→21:23)
[2023-12-16] MEDS: Ezetimibe 10 MG Tablet PO (10:44)
[2023-12-16] MEDS: Senna/Docusate Sodium 1 Tablet 2 TABLET PO (10:44)
[2023-12-16] MEDS: Tuberculin,Purif.prot.deriv. 50 TU/ML Vial 0.1 ML ID (10:49)
[2023-12-16] MEDS: Acetaminophen 500 MG Tablet 1000 MG PO ×2 (10:49→18:00)
[2023-12-16 18:16] VITALS: BP 105/62; PULSE 55
[2023-12-16] MEDS: Magnesium Chloride 64 MG Delay Rel.Tablet 128 MG PO (21:21)
[2023-12-16] MEDS: Arthritis Pain Compound 60 CLICK TUBE TOPICAL (21:21)
[2023-12-16] MEDS: Atorvastatin Calcium 20 MG Tablet PO (21:23)
[2023-12-16] MEDS: NETARSUDIL MESYLAT/LATANOPROST 2.5 ML DROPS 1 ML EACH EYE (21:24)
[2023-12-17] MEDS: Acetaminophen 500 MG Tablet 1000 MG PO ×2 (04:13→17:48)
[2023-12-17] MEDS: BRIMONIDINE TARTRATE OPHTHALMIC ×2 (08:36→21:27)
[2023-12-17] MEDS: Ursodiol 250 MG Tablet 500 MG PO ×2 (08:38→17:48)
[2023-12-17] MEDS: Ezetimibe 10 MG Tablet PO (08:38)
[2023-12-17] MEDS: Senna/Docusate Sodium 1 Tablet 2 TABLET PO (08:38)
[2023-12-17] MEDS: Cyanocobalamin 500 MCG Tablet 1000 MCG PO (08:38)
[2023-12-17] MEDS: Finasteride 5 MG Tablet PO (08:39)
[2023-12-17] MEDS: Potassium Chloride Oral Tablet 10 MEQ PO (08:39)
[2023-12-17] MEDS: Famotidine 20 MG Tablet PO (08:39)
[2023-12-17] MEDS: Cholecalciferol (VIT D3) 25 MCG TABLET (1,000 UNITS) 50 MCG PO (08:39)
[2023-12-17] MEDS: Carvedilol 6.25 MG Tablet PO ×2 (08:39→17:48)
[2023-12-17] MEDS: Aspirin E.C. 81 MG Tablet PO (08:39)
[2023-12-17] MEDS: Furosemide 40 MG Tablet PO (08:39)
[2023-12-17] MEDS: Multivitamins,Ther W-Minerals Tablet 1 TABLET PO (08:39)
[2023-12-17] MEDS: Petrolatum 33% Tube 1 APPLIC TOPICAL ×2 (08:40→21:33)
[2023-12-17] MEDS: Fluticasone/Salmeterol 232-14 Inhaler 1 PUFF INHALATION ×2 (08:40→21:27)
[2023-12-17] MEDS: Arthritis Pain Compound 60 CLICK TUBE TOPICAL ×2 (08:43→21:31)
[2023-12-17 08:45] VITALS: BP 112/55; PULSE 67
[2023-12-17 13:55] VITALS: BP 98/52; PULSE 52; RESP 16; TEMP 36.4; O2SAT 98
[2023-12-17 17:50] VITALS: BP 119/70; PULSE 60
[2023-12-17 21:20] VITALS: PULSE 58; RESP 16; O2SAT 97
[2023-12-17] MEDS: NETARSUDIL MESYLAT/LATANOPROST 2.5 ML DROPS 1 ML EACH EYE (21:25)
[2023-12-17] MEDS: Atorvastatin Calcium 20 MG Tablet PO (21:27)
[2023-12-17] MEDS: Magnesium Chloride 64 MG Delay Rel.Tablet 128 MG PO (21:27)
[2023-12-18] MEDS: Acetaminophen 500 MG Tablet 1000 MG PO ×3 (00:29→17:41)
[2023-12-18 09:24] VITALS: BP 99/50; PULSE 58; RESP 16; TEMP 36.2; O2SAT 96
[2023-12-18] MEDS: BRIMONIDINE TARTRATE OPHTHALMIC ×2 (09:30→21:15)
[2023-12-18] MEDS: Fluticasone/Salmeterol 232-14 Inhaler 1 PUFF INHALATION ×2 (09:30→21:07)
[2023-12-18] MEDS: Aspirin E.C. 81 MG Tablet PO (09:31)
[2023-12-18] MEDS: Furosemide 40 MG Tablet PO (09:31)
[2023-12-18] MEDS: Ezetimibe 10 MG Tablet PO (09:31)
[2023-12-18] MEDS: Cholecalciferol (VIT D3) 25 MCG TABLET (1,000 UNITS) 50 MCG PO (09:31)
[2023-12-18] MEDS: Potassium Chloride Oral Tablet 10 MEQ PO (09:31)
[2023-12-18] MEDS: Famotidine 20 MG Tablet PO (09:31)
[2023-12-18] MEDS: Multivitamins,Ther W-Minerals Tablet 1 TABLET PO (09:31)
[2023-12-18] MEDS: Carvedilol 6.25 MG Tablet PO ×2 (09:31→17:42)
[2023-12-18] MEDS: Ferrous Sulfate 325 MG Tablet PO (09:32)
[2023-12-18] MEDS: Finasteride 5 MG Tablet PO (09:32)
[2023-12-18] MEDS: Petrolatum 33% Tube 1 APPLIC TOPICAL ×2 (09:32→21:12)
[2023-12-18] MEDS: Ursodiol 250 MG Tablet 500 MG PO ×2 (09:32→17:41)
[2023-12-18] MEDS: Senna/Docusate Sodium 1 Tablet 2 TABLET PO (09:32)
[2023-12-18] MEDS: Cyanocobalamin 500 MCG Tablet 1000 MCG PO (09:33)
[2023-12-18 11:16] VITALS: PULSE 59; RESP 16; O2SAT 95
--- NOTE | 2023-12-18 13:35 | NURSING ---
dr mcgregor made aware of de alcholizer reporting pt c/o LT knee pain, This nurse ambulated pt around whole unit in [place] with no c/o pain. no new order, continue to monitor. notify Dr Mcgregor if pt unable to ambulate halls.
[2023-12-18 17:43] VITALS: BP 113/64; PULSE 55
[2023-12-18] MEDS: NETARSUDIL MESYLAT/LATANOPROST 2.5 ML DROPS 1 ML EACH EYE (21:06)
[2023-12-18] MEDS: Atorvastatin Calcium 20 MG Tablet PO (21:07)
[2023-12-18] MEDS: Magnesium Chloride 64 MG Delay Rel.Tablet 128 MG PO (21:07)
[2023-12-19] MEDS: Acetaminophen 500 MG Tablet 1000 MG PO ×3 (00:09→23:44)
[2023-12-19 09:26] VITALS: BP 115/49; PULSE 58; RESP 16; TEMP 36.2; O2SAT 96
[2023-12-19] MEDS: Aspirin E.C. 81 MG Tablet PO (09:27)
[2023-12-19] MEDS: Potassium Chloride Oral Tablet 10 MEQ PO (09:28)
[2023-12-19] MEDS: Carvedilol 6.25 MG Tablet PO ×2 (09:28→17:41)
[2023-12-19] MEDS: Multivitamins,Ther W-Minerals Tablet 1 TABLET PO (09:28)
[2023-12-19] MEDS: Ursodiol 250 MG Tablet 500 MG PO ×2 (09:28→17:41)
[2023-12-19] MEDS: Famotidine 20 MG Tablet PO (09:28)
[2023-12-19] MEDS: Cyanocobalamin 500 MCG Tablet 1000 MCG PO (09:28)
[2023-12-19] MEDS: Furosemide 40 MG Tablet PO (09:28)
[2023-12-19] MEDS: Fluticasone/Salmeterol 232-14 Inhaler 1 PUFF INHALATION ×2 (09:29→21:30)
[2023-12-19] MEDS: Ezetimibe 10 MG Tablet PO (09:29)
[2023-12-19] MEDS: Cholecalciferol (VIT D3) 25 MCG TABLET (1,000 UNITS) 50 MCG PO (09:29)
[2023-12-19] MEDS: Finasteride 5 MG Tablet PO (09:29)
[2023-12-19] MEDS: Petrolatum 33% Tube 1 APPLIC TOPICAL ×2 (09:30→21:31)
[2023-12-19] MEDS: BRIMONIDINE TARTRATE OPHTHALMIC ×2 (09:30→21:30)
--- NOTE | 2023-12-19 10:41 | NURSING ---
Addendum entered by Francheska Bull 12/19/23 11:36: Pt returned to unit from Dr. Jesus segura, orders to keep NPO on Tuesday for procedure. Original Note: pt off unit via WC to Dr Jesus segura at this time, at side
--- NOTE | 2023-12-19 11:49 | NURSING ---
pt returned from appt with orders for NPO after MN 12/21/23 laser procedure to break up stones
[2023-12-19 17:45] VITALS: BP 126/58; PULSE 56
[2023-12-19 21:30] VITALS: RESP 16
[2023-12-19] MEDS: NETARSUDIL MESYLAT/LATANOPROST 2.5 ML DROPS 1 ML EACH EYE (21:30)
[2023-12-19] MEDS: Atorvastatin Calcium 20 MG Tablet PO (21:31)
[2023-12-19] MEDS: Magnesium Chloride 64 MG Delay Rel.Tablet 128 MG PO (21:31)
[2023-12-20] MEDS: Acetaminophen 500 MG Tablet 1000 MG PO ×2 (05:47→18:53)
[2023-12-20] MEDS: Fluticasone/Salmeterol 232-14 Inhaler 1 PUFF INHALATION ×2 (08:43→21:38)
[2023-12-20] MEDS: Finasteride 5 MG Tablet PO (08:43)
[2023-12-20] MEDS: Ezetimibe 10 MG Tablet PO (08:43)
[2023-12-20] MEDS: Cholecalciferol (VIT D3) 25 MCG TABLET (1,000 UNITS) 50 MCG PO (08:43)
[2023-12-20] MEDS: Furosemide 40 MG Tablet PO (08:43)
[2023-12-20] MEDS: Cyanocobalamin 500 MCG Tablet 1000 MCG PO (08:43)
[2023-12-20] MEDS: Ursodiol 250 MG Tablet 500 MG PO ×2 (08:43→17:16)
[2023-12-20] MEDS: Potassium Chloride Oral Tablet 10 MEQ PO (08:44)
[2023-12-20] MEDS: Famotidine 20 MG Tablet PO (08:44)
[2023-12-20] MEDS: Ferrous Sulfate 325 MG Tablet PO (08:44)
[2023-12-20] MEDS: Senna/Docusate Sodium 1 Tablet 2 TABLET PO (08:44)
[2023-12-20] MEDS: Multivitamins,Ther W-Minerals Tablet 1 TABLET PO (08:44)
[2023-12-20] MEDS: Carvedilol 6.25 MG Tablet PO ×2 (08:45→17:16)
[2023-12-20] MEDS: Petrolatum 33% Tube 1 APPLIC TOPICAL ×2 (08:45→21:40)
[2023-12-20] MEDS: BRIMONIDINE TARTRATE OPHTHALMIC ×2 (08:45→21:39)
[2023-12-20 08:53] VITALS: BP 106/57; PULSE 64
--- NOTE | 2023-12-20 11:00 | CASEMGMT ---
Social Work SW met with patient and , Marlene at bedside to provide resources and assess for needs. Patient expressed concerns for returning home with managing medication at home due to glaucoma. SW discussed personal care options. SW provided patient with information for personal care. Patient inquired about [employer] [facility] services. SW informed patient that little information is known about all the services provided by [employer] [facility], but SW will return with further details, if needed. SW discussed patient goals for discharge. Patient informed SW that his goals were to transition to Inpatient Rehab, but if he is unable to go to [facility], he would like home health care. The patient informed SW that he went to [facility] in 2019 and transitioned home with home health post acute. SW discussed potential barrier to transition to [facility]. SW discussed home health care history with the patient. The patient and informed SW that he had [facility] in the past. Patient preference is for [facility] to be arranged, should patient return home with home health care services. Patient is open to recommendations for SN/PT/OT services. Patient has upcoming surgery for 12/21/23. SW to follow for continued care planning. RAPHAEL Galeas
[2023-12-20 12:45] VITALS: BMI 30.3
[2023-12-20 13:26] VITALS: BP 108/56; PULSE 52; RESP 17; TEMP 36.2; O2SAT 96
[2023-12-20 17:17] VITALS: BP 111/56; PULSE 62
[2023-12-20] MEDS: Arthritis Pain Compound 60 CLICK TUBE TOPICAL ×2 (18:54→21:39)
[2023-12-20] MEDS: NETARSUDIL MESYLAT/LATANOPROST 2.5 ML DROPS 1 ML EACH EYE (21:39)
[2023-12-20] MEDS: Atorvastatin Calcium 20 MG Tablet PO (21:40)
[2023-12-20] MEDS: Magnesium Chloride 64 MG Delay Rel.Tablet 128 MG PO (21:40)
[2023-12-20 21:45] VITALS: RESP 16
[2023-12-21] MEDS: Famotidine 20 MG Tablet PO (10:07)
[2023-12-21] MEDS: Carvedilol 6.25 MG Tablet PO ×2 (10:07→16:41)
[2023-12-21] MEDS: Fluticasone/Salmeterol 232-14 Inhaler 1 PUFF INHALATION ×2 (10:07→20:52)
--- NOTE | 2023-12-21 11:34 | MDS.RN ---
Information for the mds was obtained from review of the clinical record, interview of resident, staff, and direct observation of resident's care.
--- NOTE | 2023-12-21 13:45 | NURSING ---
Pt off unit for Ureostocopy
--- NOTE | 2023-12-21 16:34 | NURSING ---
Report called from OR and pt is ready to come back to PCU per report Kidney stone and Stent was removed. No other new orders at this time.
[2023-12-21] MEDS: Ursodiol 250 MG Tablet 500 MG PO (16:41)
[2023-12-21 16:46] VITALS: BP 146/55; PULSE 60; RESP 18; TEMP 36.3; O2SAT 90
--- NOTE | 2023-12-21 16:48 | NURSING ---
Pt Brought back to TCU from OR.
[2023-12-21 20:18] VITALS: PULSE 74; RESP 16; O2SAT 94
[2023-12-21] MEDS: Ciprofloxacin 500 MG Tablet PO (20:52)
[2023-12-21] MEDS: Acetaminophen 500 MG Tablet 1000 MG PO (20:52)
[2023-12-21] MEDS: NETARSUDIL MESYLAT/LATANOPROST 2.5 ML DROPS 1 ML EACH EYE (20:52)
[2023-12-21] MEDS: Atorvastatin Calcium 20 MG Tablet PO (20:53)
[2023-12-21] MEDS: Magnesium Chloride 64 MG Delay Rel.Tablet 128 MG PO (20:53)
[2023-12-21] MEDS: BRIMONIDINE TARTRATE OPHTHALMIC (20:53)
[2023-12-21] MEDS: Petrolatum 33% Tube 1 APPLIC TOPICAL (20:54)
--- NOTE | 2023-12-21 21:05 | NURSING ---
Assisted patient with urinal, voided small amount of urine. Continues to pass blood, no clots noted. States it chandra a little, but tolerable. Will continue to monitor.
[2023-12-22 09:15] VITALS: BP 117/59; PULSE 59; RESP 16; TEMP 36.4; O2SAT 91
[2023-12-22] MEDS: Finasteride 5 MG Tablet PO (09:48)
[2023-12-22] MEDS: Aspirin E.C. 81 MG Tablet PO (09:48)
[2023-12-22] MEDS: Ursodiol 250 MG Tablet 500 MG PO ×2 (09:48→17:30)
[2023-12-22] MEDS: Carvedilol 6.25 MG Tablet PO ×2 (09:48→17:30)
[2023-12-22] MEDS: Cholecalciferol (VIT D3) 25 MCG TABLET (1,000 UNITS) 50 MCG PO (09:48)
[2023-12-22] MEDS: Multivitamins,Ther W-Minerals Tablet 1 TABLET PO (09:49)
[2023-12-22] MEDS: Ferrous Sulfate 325 MG Tablet PO (09:49)
[2023-12-22] MEDS: Ciprofloxacin 500 MG Tablet PO ×2 (09:49→21:03)
[2023-12-22] MEDS: Furosemide 40 MG Tablet PO (09:49)
[2023-12-22] MEDS: Potassium Chloride Oral Tablet 10 MEQ PO (09:49)
[2023-12-22] MEDS: Famotidine 20 MG Tablet PO (09:49)
[2023-12-22] MEDS: Cyanocobalamin 500 MCG Tablet 1000 MCG PO (09:49)
[2023-12-22] MEDS: Ezetimibe 10 MG Tablet PO (09:49)
[2023-12-22] MEDS: BRIMONIDINE TARTRATE OPHTHALMIC ×2 (09:50→21:03)
[2023-12-22] MEDS: Senna/Docusate Sodium 1 Tablet 2 TABLET PO ×2 (09:50→21:03)
[2023-12-22] MEDS: Fluticasone/Salmeterol 232-14 Inhaler 1 PUFF INHALATION ×2 (09:50→21:04)
[2023-12-22] MEDS: Petrolatum 33% Tube 1 APPLIC TOPICAL ×2 (09:51→21:12)
[2023-12-22 10:00] VITALS: O2SAT 91
--- NOTE | 2023-12-22 11:51 | CASEMGMT ---
Social Work SW met with patient at bedside to notify of insurance [employer] continued coverage for skilled services; NRD 12/28. Patient provided verbal understanding for continued stay. Patient informed SW that he wants [facility] services post acute stay. SW will continue to follow to assist with discharge planning. RAPHAEL Galeas
[2023-12-22] MEDS: Arthritis Pain Compound 60 CLICK TUBE TOPICAL (21:02)
[2023-12-22] MEDS: Acetaminophen 500 MG Tablet 1000 MG PO (21:02)
[2023-12-22] MEDS: Magnesium Chloride 64 MG Delay Rel.Tablet 128 MG PO (21:03)
[2023-12-22] MEDS: NETARSUDIL MESYLAT/LATANOPROST 2.5 ML DROPS 1 ML EACH EYE (21:03)
[2023-12-22] MEDS: Atorvastatin Calcium 20 MG Tablet PO (21:03)
[2023-12-23 06:00] LABS: Absolute Neutrophil Count 4.9 X10^3/uL (2.0-7.7); Basophil# 0.04 X10^3/uL; Basophil% 0.5 % (0-1); Eosinophil# 0.16 X10^3/uL; Hematocrit 32.1 % (40-54); Lymphocyte % 18.8 % (19-41); Mean Corp Hgb Conc 31.2 g/dL (32-36); Mean Corpuscular Hgb 29.7 pg (27.0-32.0); Mean Corpuscular Volume 95.3 fL (80-94); Mean Platelet Vol. 9.8 fl (6.2-12.0); Monocyte# 1.34 X10^3/uL; Monocyte% 16.8 % (0-10); NRBC Flagged by Analyzer 0 % (0-5); Neutrophil # 4.92 X10^3/uL (2.7-7.7); Neutrophil % 61.5 % (47-70); Platelet Count 188 K/mm3 (150-450); RBC Distribution Width CV 15.6 % (11.6-14.6); RBC Distribution Width SD 54.6 fl (35.1-43.9); Red Blood Count 3.37 M/mm3 (4.6-6.2)
[2023-12-23 06:42] LABS: Anion Gap 3 (5-15); BUN 29 mg/dL (7-18); BUN/Creat Ratio 26.4 RATIO (10-20); Chloride 103 mmol/L (98-107); EST Glomerular Filtration Rate 67 mL/min (>60); Est Glom Filt Rate - Afr Amer 82 mL/min (>60); Estimated Creatinine Clearance 59.39 ml/min; Glucose 102 mg/dL (74-106); Sodium Level 136 mmol/L (136-145)
[2023-12-23] MEDS: Finasteride 5 MG Tablet PO (09:36)
[2023-12-23] MEDS: Furosemide 40 MG Tablet PO (09:36)
[2023-12-23] MEDS: Potassium Chloride Oral Tablet 10 MEQ PO (09:36)
[2023-12-23] MEDS: Ezetimibe 10 MG Tablet PO (09:36)
[2023-12-23] MEDS: Famotidine 20 MG Tablet PO (09:36)
[2023-12-23] MEDS: Ciprofloxacin 500 MG Tablet PO ×2 (09:37→20:58)
[2023-12-23] MEDS: Carvedilol 6.25 MG Tablet PO (09:37)
[2023-12-23] MEDS: Aspirin E.C. 81 MG Tablet PO (09:37)
[2023-12-23] MEDS: Ursodiol 250 MG Tablet 500 MG PO ×2 (09:37→17:25)
[2023-12-23] MEDS: Cholecalciferol (VIT D3) 25 MCG TABLET (1,000 UNITS) 50 MCG PO (09:37)
[2023-12-23] MEDS: Cyanocobalamin 500 MCG Tablet 1000 MCG PO (09:37)
[2023-12-23] MEDS: Senna/Docusate Sodium 1 Tablet 2 TABLET PO ×2 (09:37→20:57)
[2023-12-23] MEDS: Fluticasone/Salmeterol 232-14 Inhaler 1 PUFF INHALATION ×2 (09:37→20:56)
[2023-12-23] MEDS: Multivitamins,Ther W-Minerals Tablet 1 TABLET PO (09:37)
[2023-12-23] MEDS: BRIMONIDINE TARTRATE OPHTHALMIC ×2 (09:38→20:56)
[2023-12-23] MEDS: Petrolatum 33% Tube 1 APPLIC TOPICAL ×2 (09:43→20:55)
[2023-12-23 16:00] VITALS: BP 96/56; PULSE 69; RESP 16; TEMP 37.3; O2SAT 97
[2023-12-23 16:12] VITALS: TEMP 37.2
[2023-12-23 17:28] VITALS: BP 95/59; PULSE 63
[2023-12-23] MEDS: Bisacodyl 10 MG Suppository RC (18:43)
[2023-12-23 19:35] VITALS: RESP 16
[2023-12-23] MEDS: Acetaminophen 500 MG Tablet 1000 MG PO (20:55)
[2023-12-23] MEDS: NETARSUDIL MESYLAT/LATANOPROST 2.5 ML DROPS 1 ML EACH EYE (20:56)
[2023-12-23] MEDS: Magnesium Chloride 64 MG Delay Rel.Tablet 128 MG PO (20:58)
[2023-12-23] MEDS: Atorvastatin Calcium 20 MG Tablet PO (20:59)
[2023-12-23 21:08] VITALS: BP 107/54; PULSE 60
[2023-12-24 06:59] VITALS: RESP 16
[2023-12-24 10:01] VITALS: BP 114/63; PULSE 64; RESP 17; TEMP 37.1; O2SAT 97
[2023-12-24] MEDS: Carvedilol 6.25 MG Tablet PO (10:04)
[2023-12-24] MEDS: Aspirin E.C. 81 MG Tablet PO (10:05)
[2023-12-24] MEDS: Multivitamins,Ther W-Minerals Tablet 1 TABLET PO (10:05)
[2023-12-24] MEDS: Ursodiol 250 MG Tablet 500 MG PO ×2 (10:05→18:28)
[2023-12-24] MEDS: Menthol/Lanolin/Calamine/Znox 113 GM Tube 1 APPLIC TOPICAL ×2 (10:06→22:51)
[2023-12-24] MEDS: Ciprofloxacin 500 MG Tablet PO ×2 (10:06→22:51)
[2023-12-24] MEDS: BRIMONIDINE TARTRATE OPHTHALMIC ×2 (10:06→22:41)
[2023-12-24] MEDS: Petrolatum 33% Tube 1 APPLIC TOPICAL ×2 (10:07→22:50)
[2023-12-24] MEDS: Fluticasone/Salmeterol 232-14 Inhaler 1 PUFF INHALATION ×2 (10:07→22:42)
[2023-12-24] MEDS: Ferrous Sulfate 325 MG Tablet PO (10:07)
[2023-12-24] MEDS: Finasteride 5 MG Tablet PO (10:08)
[2023-12-24] MEDS: Famotidine 20 MG Tablet PO (10:08)
[2023-12-24] MEDS: Potassium Chloride Oral Tablet 10 MEQ PO (10:08)
[2023-12-24] MEDS: Furosemide 40 MG Tablet PO (10:08)
[2023-12-24] MEDS: Polyethylene Glycol 3350 17 GM PACKET PO (10:08)
[2023-12-24] MEDS: Senna/Docusate Sodium 1 Tablet 2 TABLET PO ×2 (10:09→22:49)
[2023-12-24] MEDS: Cyanocobalamin 500 MCG Tablet 1000 MCG PO (10:09)
[2023-12-24] MEDS: Cholecalciferol (VIT D3) 25 MCG TABLET (1,000 UNITS) 50 MCG PO (10:09)
[2023-12-24] MEDS: Ezetimibe 10 MG Tablet PO (10:10)
--- NOTE | 2023-12-24 10:35 | NURSING ---
Patient's LBM documented as 4/2. Patient given prune juice, suppository, and senna. All ineffective. Patient requesting Magnesium Citrate. Call placed to Dr. Mcgregor. New order obtained for Magnesium Citrate 300mL PO daily PRN.
[2023-12-24] MEDS: Magnesium Citrate 300 ML PO (11:23)
[2023-12-24 18:27] VITALS: BP 99/50; PULSE 75
[2023-12-24] MEDS: NETARSUDIL MESYLAT/LATANOPROST 2.5 ML DROPS EACH EYE (22:41)
[2023-12-24] MEDS: Magnesium Chloride 64 MG Delay Rel.Tablet 128 MG PO (22:49)
[2023-12-24] MEDS: Atorvastatin Calcium 20 MG Tablet PO (22:50)
[2023-12-24] MEDS: Acetaminophen 500 MG Tablet 1000 MG PO (22:50)
[2023-12-24 23:00] VITALS: BP 102/53; BP 119/50; PULSE 59; PULSE 64
--- NOTE | 2023-12-24 23:00 | NURSING ---
Resident is hesitant to take Senna-S this evening after positive results from Mag Citrate. Educated on desired effects of Senna-S as he is concerned that his bowels will move during the night. Informed resident that Senna-S is not meant to act as a harsh stimulant and likely will not pass stool during the night. Strongly encouraged taking Senna-S d/t long-term use of OTC laxatives at home for the past 10 years. He verbalizes understanding and took Senna-S as prescribed.
[2023-12-25 10:18] VITALS: BP 103/57; PULSE 61; RESP 17; TEMP 36.9; O2SAT 97
[2023-12-25] MEDS: Carvedilol 6.25 MG Tablet PO ×2 (10:21→17:34)
[2023-12-25] MEDS: Fluticasone/Salmeterol 232-14 Inhaler 1 PUFF INHALATION ×2 (10:21→23:05)
[2023-12-25] MEDS: Ursodiol 250 MG Tablet 500 MG PO ×2 (10:21→17:34)
[2023-12-25] MEDS: Multivitamins,Ther W-Minerals Tablet 1 TABLET PO (10:21)
[2023-12-25] MEDS: Aspirin E.C. 81 MG Tablet PO (10:21)
[2023-12-25] MEDS: Ciprofloxacin 500 MG Tablet PO ×2 (10:22→23:07)
[2023-12-25] MEDS: Potassium Chloride Oral Tablet 10 MEQ PO (10:22)
[2023-12-25] MEDS: Furosemide 40 MG Tablet PO (10:23)
[2023-12-25] MEDS: Famotidine 20 MG Tablet PO (10:23)
[2023-12-25] MEDS: Petrolatum 33% Tube 1 APPLIC TOPICAL ×2 (10:25→23:07)
[2023-12-25] MEDS: BRIMONIDINE TARTRATE OPHTHALMIC ×2 (10:25→23:05)
[2023-12-25] MEDS: Menthol/Lanolin/Calamine/Znox 113 GM Tube 1 APPLIC TOPICAL ×2 (10:25→23:08)
[2023-12-25] MEDS: Cholecalciferol (VIT D3) 25 MCG TABLET (1,000 UNITS) 50 MCG PO (10:26)
[2023-12-25] MEDS: Cyanocobalamin 500 MCG Tablet 1000 MCG PO (10:26)
[2023-12-25] MEDS: Finasteride 5 MG Tablet PO (10:26)
[2023-12-25] MEDS: Ezetimibe 10 MG Tablet PO (10:27)
[2023-12-25 17:29] VITALS: BP 128/68; PULSE 65
[2023-12-25] MEDS: NETARSUDIL MESYLAT/LATANOPROST 2.5 ML DROPS EACH EYE (23:05)
[2023-12-25] MEDS: Atorvastatin Calcium 20 MG Tablet PO (23:05)
[2023-12-25] MEDS: Acetaminophen 500 MG Tablet 1000 MG PO (23:06)
--- NOTE | 2023-12-25 23:15 | NURSING ---
Resident declines Magnesium and Senna-S tablets this hs. Notes he will resume taking them tomorrow as he reports continuing to pass stool since Mag Citrate was administered on 12/23. He thinks this may be due to the dose of Magnesium tablets and Senna-S the night prior. Educated resident on the desired effects of Senna-S and Magnesium tablets which take the place of the laxative he has been taking at home for the past 10 years. Informed resident the stool he has been passing is likely residual from the dose of Mag Citrate on 12/23. Further education needed. Will continue to monitor.
[2023-12-26] MEDS: Senna/Docusate Sodium 1 Tablet 2 TABLET PO ×2 (10:11→20:48)
[2023-12-26] MEDS: Cyanocobalamin 500 MCG Tablet 1000 MCG PO (10:11)
[2023-12-26] MEDS: Cholecalciferol (VIT D3) 25 MCG TABLET (1,000 UNITS) 50 MCG PO (10:12)
[2023-12-26] MEDS: Famotidine 20 MG Tablet PO (10:12)
[2023-12-26] MEDS: Multivitamins,Ther W-Minerals Tablet 1 TABLET PO (10:12)
[2023-12-26] MEDS: Carvedilol 6.25 MG Tablet PO ×2 (10:12→16:53)
[2023-12-26] MEDS: Potassium Chloride Oral Tablet 10 MEQ PO (10:12)
[2023-12-26] MEDS: Ciprofloxacin 500 MG Tablet PO ×2 (10:12→20:47)
[2023-12-26] MEDS: Aspirin E.C. 81 MG Tablet PO (10:12)
[2023-12-26] MEDS: Ezetimibe 10 MG Tablet PO (10:12)
[2023-12-26] MEDS: Ursodiol 250 MG Tablet 500 MG PO ×2 (10:12→16:53)
[2023-12-26] MEDS: Furosemide 40 MG Tablet PO (10:12)
[2023-12-26] MEDS: Polyethylene Glycol 3350 17 GM PACKET PO (10:13)
[2023-12-26] MEDS: BRIMONIDINE TARTRATE OPHTHALMIC ×2 (10:13→20:47)
[2023-12-26] MEDS: Fluticasone/Salmeterol 232-14 Inhaler 1 PUFF INHALATION ×2 (10:13→20:45)
[2023-12-26] MEDS: Finasteride 5 MG Tablet PO (10:14)
[2023-12-26] MEDS: Ferrous Sulfate 325 MG Tablet PO (10:14)
[2023-12-26] MEDS: Petrolatum 33% Tube 1 APPLIC TOPICAL ×2 (10:18→21:16)
[2023-12-26] MEDS: Menthol/Lanolin/Calamine/Znox 113 GM Tube 1 APPLIC TOPICAL ×2 (10:22→21:20)
[2023-12-26 14:11] VITALS: BP 117/62; PULSE 66; RESP 14; TEMP 36.2; O2SAT 98
[2023-12-26] MEDS: NETARSUDIL MESYLAT/LATANOPROST 2.5 ML DROPS EACH EYE (20:46)
[2023-12-26] MEDS: Atorvastatin Calcium 20 MG Tablet PO (20:47)
[2023-12-26] MEDS: Arthritis Pain Compound 60 CLICK TUBE TOPICAL (20:47)
[2023-12-26] MEDS: Magnesium Chloride 64 MG Delay Rel.Tablet 128 MG PO (20:48)
[2023-12-26] MEDS: Acetaminophen 500 MG Tablet 1000 MG PO (21:13)
[2023-12-27] MEDS: Acetaminophen 500 MG Tablet 1000 MG PO ×2 (06:25→22:26)
[2023-12-27] MEDS: Carvedilol 6.25 MG Tablet PO ×2 (09:53→17:26)
[2023-12-27] MEDS: Ursodiol 250 MG Tablet 500 MG PO ×2 (09:53→17:26)
[2023-12-27] MEDS: Potassium Chloride Oral Tablet 10 MEQ PO (09:54)
[2023-12-27] MEDS: Ciprofloxacin 500 MG Tablet PO ×2 (09:54→22:27)
[2023-12-27] MEDS: Multivitamins,Ther W-Minerals Tablet 1 TABLET PO (09:54)
[2023-12-27] MEDS: Aspirin E.C. 81 MG Tablet PO (09:54)
[2023-12-27] MEDS: Cyanocobalamin 500 MCG Tablet 1000 MCG PO (09:54)
[2023-12-27] MEDS: Senna/Docusate Sodium 1 Tablet 2 TABLET PO ×2 (09:54→22:27)
[2023-12-27] MEDS: Ezetimibe 10 MG Tablet PO (09:54)
[2023-12-27] MEDS: Cholecalciferol (VIT D3) 25 MCG TABLET (1,000 UNITS) 50 MCG PO (09:54)
[2023-12-27] MEDS: Furosemide 40 MG Tablet PO (09:54)
[2023-12-27] MEDS: Famotidine 20 MG Tablet PO (09:54)
[2023-12-27] MEDS: BRIMONIDINE TARTRATE OPHTHALMIC ×2 (09:55→22:28)
[2023-12-27] MEDS: Fluticasone/Salmeterol 232-14 Inhaler 1 PUFF INHALATION ×2 (09:55→22:28)
[2023-12-27] MEDS: Petrolatum 33% Tube 1 APPLIC TOPICAL ×2 (09:55→22:27)
[2023-12-27] MEDS: Polyethylene Glycol 3350 17 GM PACKET PO (09:55)
[2023-12-27] MEDS: Finasteride 5 MG Tablet PO (09:55)
[2023-12-27 10:02] VITALS: BP 127/68; PULSE 66
--- NOTE | 2023-12-27 10:45 | NURSING ---
Pt returned from appt at [facility]. No new orders.
[2023-12-27 13:00] VITALS: BMI 29.7
[2023-12-27] MEDS: Menthol/Lanolin/Calamine/Znox 113 GM Tube 1 APPLIC TOPICAL ×2 (13:13→22:30)
[2023-12-27 16:00] VITALS: BP 125/69; PULSE 66; RESP 12; TEMP 36.1; O2SAT 98
[2023-12-27] MEDS: Magnesium Chloride 64 MG Delay Rel.Tablet 128 MG PO (22:27)
[2023-12-27] MEDS: NETARSUDIL MESYLAT/LATANOPROST 2.5 ML DROPS EACH EYE (22:28)
[2023-12-27] MEDS: Atorvastatin Calcium 20 MG Tablet PO (22:29)
[2023-12-27 22:30] VITALS: RESP 16
[2023-12-28] MEDS: Aspirin E.C. 81 MG Tablet PO (08:03)
[2023-12-28] MEDS: Ciprofloxacin 500 MG Tablet PO ×2 (08:03→22:23)
[2023-12-28] MEDS: Multivitamins,Ther W-Minerals Tablet 1 TABLET PO (08:03)
[2023-12-28] MEDS: Ursodiol 250 MG Tablet 500 MG PO ×2 (08:03→17:02)
[2023-12-28] MEDS: Potassium Chloride Oral Tablet 10 MEQ PO (08:03)
[2023-12-28] MEDS: Ferrous Sulfate 325 MG Tablet PO (08:03)
[2023-12-28] MEDS: Carvedilol 6.25 MG Tablet PO ×2 (08:03→17:02)
[2023-12-28] MEDS: Cyanocobalamin 500 MCG Tablet 1000 MCG PO (08:04)
[2023-12-28] MEDS: Polyethylene Glycol 3350 17 GM PACKET PO (08:04)
[2023-12-28] MEDS: Cholecalciferol (VIT D3) 25 MCG TABLET (1,000 UNITS) 50 MCG PO (08:04)
[2023-12-28] MEDS: Finasteride 5 MG Tablet PO (08:04)
[2023-12-28] MEDS: Furosemide 40 MG Tablet PO (08:04)
[2023-12-28] MEDS: Famotidine 20 MG Tablet PO (08:04)
[2023-12-28] MEDS: Senna/Docusate Sodium 1 Tablet 2 TABLET PO ×2 (08:04→22:23)
[2023-12-28] MEDS: Ezetimibe 10 MG Tablet PO (08:05)
[2023-12-28] MEDS: Fluticasone/Salmeterol 232-14 Inhaler 1 PUFF INHALATION ×2 (08:07→22:21)
[2023-12-28] MEDS: Magnesium Citrate 300 ML PO (08:07)
[2023-12-28] MEDS: Menthol/Lanolin/Calamine/Znox 113 GM Tube 1 APPLIC TOPICAL ×2 (08:17→22:24)
[2023-12-28] MEDS: BRIMONIDINE TARTRATE OPHTHALMIC ×2 (08:18→22:17)
[2023-12-28] MEDS: Petrolatum 33% Tube 1 APPLIC TOPICAL ×2 (08:19→22:23)
[2023-12-28 16:00] VITALS: BP 107/56; PULSE 60; RESP 14; TEMP 36.2; O2SAT 97
[2023-12-28 22:15] VITALS: RESP 16
[2023-12-28] MEDS: NETARSUDIL MESYLAT/LATANOPROST 2.5 ML DROPS EACH EYE (22:18)
[2023-12-28] MEDS: Acetaminophen 500 MG Tablet 1000 MG PO (22:21)
[2023-12-28] MEDS: Atorvastatin Calcium 20 MG Tablet PO (22:22)
[2023-12-28] MEDS: Magnesium Chloride 64 MG Delay Rel.Tablet 128 MG PO (22:22)
[2023-12-29 06:15] VITALS: RESP 16
[2023-12-29 09:32] VITALS: BP 123/58; PULSE 57; RESP 16; TEMP 36; O2SAT 99
[2023-12-29] MEDS: Ursodiol 250 MG Tablet 500 MG PO ×2 (09:33→16:37)
[2023-12-29] MEDS: Ciprofloxacin 500 MG Tablet PO ×2 (09:33→21:16)
[2023-12-29] MEDS: Famotidine 20 MG Tablet PO (09:33)
[2023-12-29] MEDS: Cholecalciferol (VIT D3) 25 MCG TABLET (1,000 UNITS) 50 MCG PO (09:33)
[2023-12-29] MEDS: Senna/Docusate Sodium 1 Tablet 2 TABLET PO ×2 (09:33→21:15)
[2023-12-29] MEDS: Ezetimibe 10 MG Tablet PO (09:33)
[2023-12-29] MEDS: Furosemide 40 MG Tablet PO (09:34)
[2023-12-29] MEDS: Aspirin E.C. 81 MG Tablet PO (09:34)
[2023-12-29] MEDS: Cyanocobalamin 500 MCG Tablet 1000 MCG PO (09:34)
[2023-12-29] MEDS: Multivitamins,Ther W-Minerals Tablet 1 TABLET PO (09:34)
[2023-12-29] MEDS: Finasteride 5 MG Tablet PO (09:34)
[2023-12-29] MEDS: Carvedilol 6.25 MG Tablet PO ×2 (09:34→16:37)
[2023-12-29] MEDS: Potassium Chloride Oral Tablet 10 MEQ PO (09:34)
[2023-12-29] MEDS: BRIMONIDINE TARTRATE OPHTHALMIC ×2 (09:35→21:15)
[2023-12-29] MEDS: Menthol/Lanolin/Calamine/Znox 113 GM Tube 1 APPLIC TOPICAL ×2 (09:35→21:40)
[2023-12-29] MEDS: Petrolatum 33% Tube 1 APPLIC TOPICAL ×2 (09:35→21:28)
[2023-12-29] MEDS: Fluticasone/Salmeterol 232-14 Inhaler 1 PUFF INHALATION ×2 (09:35→21:15)
--- NOTE | 2023-12-29 16:09 | CASEMGMT ---
Social Work SW met with patient and at bedside to notify of insurance coverage. Patient [employer] has extended skilled services; NRD 01/04. SW inquired about patient feelings regarding progress with therapy and potential discharge. Patient informed SW that he is feeling good with therapy. Patient is aware that potential discharge is nearing. Patient anticipates discharge home with [facility] RN/PT/OT services. Patient and are appreciative of quality of care provided at TCU. Patient informed SW that his goal is to be the physically best he can be with therapy. SW discussed potential discharge home with home health pending insurance review of progress. Discharge: Home with [facility] SN/PT/OT RAPHAEL Galeas
[2023-12-29] MEDS: Albuterol Sulfate 8 gm Inhaler (60 puffs) 2 PUFF INHALATION (16:37)
[2023-12-29 16:38] VITALS: BP 102/53; PULSE 52
[2023-12-29] MEDS: NETARSUDIL MESYLAT/LATANOPROST 2.5 ML DROPS EACH EYE (21:15)
[2023-12-29] MEDS: Atorvastatin Calcium 20 MG Tablet PO (21:16)
[2023-12-29] MEDS: Acetaminophen 500 MG Tablet 1000 MG PO (21:21)
[2023-12-29] MEDS: Magnesium Chloride 64 MG Delay Rel.Tablet 128 MG PO (21:21)
[2023-12-30] MEDS: Acetaminophen 500 MG Tablet 1000 MG PO ×2 (03:56→22:57)
[2023-12-30 06:01] LABS: Absolute Lymphocyte Count 2.79 X10^3/uL (0.83-4.51); Absolute Neutrophil Count 3.6 X10^3/uL (2.0-7.7); Basophil# 0.07 X10^3/uL; Basophil% 0.9 % (0-1); Eosinophil# 0.43 X10^3/uL; Eosinophils% 5.4 % (0-5); Hematocrit 31.8 % (40-54); Hemoglobin 9.8 g/dL (13.0-16.5); Lymphocyte # 2.79 X10^3/ul (0.83-4.51); Mean Corp Hgb Conc 30.8 g/dL (32-36); Mean Corpuscular Hgb 29.7 pg (27.0-32.0); Mean Corpuscular Volume 96.4 fL (80-94); Mean Platelet Vol. 9.7 fl (6.2-12.0); Monocyte# 1.08 X10^3/uL; Monocyte% 13.6 % (0-10); NRBC Flagged by Analyzer 0 % (0-5); Neutrophil # 3.55 X10^3/uL (2.7-7.7); Neutrophil % 44.5 % (47-70); Platelet Count 183 K/mm3 (150-450); RBC Distribution Width CV 15.6 % (11.6-14.6); RBC Distribution Width SD 55.5 fl (35.1-43.9)
[2023-12-30 06:28] LABS: Anion Gap 0 (5-15); BUN 24 mg/dL (7-18); Calcium,Total 9.2 mg/dL (8.5-10.1); Chloride 105 mmol/L (98-107); Creatinine, Serum 1.26 mg/dL (0.70-1.30); EST Glomerular Filtration Rate 58 mL/min (>60); Est Glom Filt Rate - Afr Amer 70 mL/min (>60); Estimated Creatinine Clearance 51.48 ml/min; Glucose 103 mg/dL (74-106); Potassium 4.2 mmol/L (3.5-5.1); Sodium Level 138 mmol/L (136-145)
[2023-12-30] MEDS: Aspirin E.C. 81 MG Tablet PO (09:15)
[2023-12-30] MEDS: Ursodiol 250 MG Tablet 500 MG PO ×2 (09:15→17:26)
[2023-12-30] MEDS: Multivitamins,Ther W-Minerals Tablet 1 TABLET PO (09:15)
[2023-12-30] MEDS: BRIMONIDINE TARTRATE OPHTHALMIC ×2 (09:15→23:02)
[2023-12-30] MEDS: Carvedilol 6.25 MG Tablet PO ×2 (09:15→17:26)
[2023-12-30] MEDS: Furosemide 40 MG Tablet PO (09:16)
[2023-12-30] MEDS: Ferrous Sulfate 325 MG Tablet PO (09:16)
[2023-12-30] MEDS: Ciprofloxacin 500 MG Tablet PO ×2 (09:16→23:00)
[2023-12-30] MEDS: Potassium Chloride Oral Tablet 10 MEQ PO (09:16)
[2023-12-30] MEDS: Famotidine 20 MG Tablet PO (09:17)
[2023-12-30] MEDS: Finasteride 5 MG Tablet PO (09:17)
[2023-12-30] MEDS: Senna/Docusate Sodium 1 Tablet 2 TABLET PO ×2 (09:18→23:06)
[2023-12-30] MEDS: Cyanocobalamin 500 MCG Tablet 1000 MCG PO (09:18)
[2023-12-30] MEDS: Cholecalciferol (VIT D3) 25 MCG TABLET (1,000 UNITS) 50 MCG PO (09:18)
[2023-12-30] MEDS: Ezetimibe 10 MG Tablet PO (09:19)
[2023-12-30] MEDS: Fluticasone/Salmeterol 232-14 Inhaler 1 PUFF INHALATION ×2 (09:21→23:01)
[2023-12-30] MEDS: Petrolatum 33% Tube 1 APPLIC TOPICAL ×2 (09:21→23:09)
[2023-12-30] MEDS: Menthol/Lanolin/Calamine/Znox 113 GM Tube 1 APPLIC TOPICAL ×2 (09:23→23:07)
--- NOTE | 2023-12-30 10:13 | CASEMGMT ---
Social Work SW received notification from nursing staff that the patient is requesting to discharge prior to next review date of [employer] insurance 01/04. SW met with patient at bedside to inquire about request to discharge. Patient confirmed with SW that he would like to discharge home with preferred home health care provider, [facility] RN/PT/OT. Patient denied any need for DME at this time. Patient informed SW that he would like to discharge over the weekend. SW discussed date of discharge. Patient would like to discharge 01/01/2024. Patient informed SW that he is changing pharmacies and would like prescriptions sent to pharmacy of choice. SW informed patient to notify RN of his pharmacy choice. Patient will coordinate with his and insurance to obtain new pharmacy. Patient is requesting review of medication at discharge. BRANT notified Physician, Dr. Mcgregor of discharge request. SW provided patient with [employer] Medicare Rights. Patient provided verbal understanding and provide signature for important medicare letter. Patient was provided a copy of [employer] letter. [facility] contacted [facility] and spoke with Music Store Manager, Herlinda who confirmed SOC on 01/02/2024 for home health care services. Discharge: [facility] RN/PT/OT RAPHAEL Galeas
[2023-12-30 11:18] VITALS: BP 104/52; PULSE 54; RESP 16; TEMP 36.2; O2SAT 97
--- NOTE | 2023-12-30 13:45 | DS.PCM_ITS ---
Providers Date of Admission: 12/08/23 Primary Care Physician: Dr. Addi Mario MD Reason For Visit: N STEMI WITH UTI & PNEUMONIA Diagnosis Discharge Diagnosis (1) Debility: Status: Acute Code(s): R53.81 - Other malaise (2) Non-STEMI (non-ST elevated myocardial infarction): Status: Inactive Code(s): I21.4 - Non-ST elevation (NSTEMI) myocardial infarction (3) Encephalopathy: Status: Acute Code(s): G93.40 - Encephalopathy, unspecified (4) Urinary tract infection: Status: Resolved Code(s): N39.0 - Urinary tract infection, site not specified (5) Pneumonia: Status: Acute Code(s): J18.9 - Pneumonia, unspecified organism (6) Right ureteral stone: Status: Acute Code(s): N20.1 - Calculus of ureter (7) Atrial fibrillation: Status: Acute Code(s): I48.91 - Unspecified atrial fibrillation (8) Glaucoma: Status: Chronic Code(s): H40.9 - Unspecified glaucoma (9) Allergic rhinitis: Status: Acute Code(s): J30.9 - Allergic rhinitis, unspecified (10) Asthma: Status: Chronic Code(s): J45.909 - Unspecified asthma, uncomplicated Qualifiers: Asthma severity: unspecified severity Asthma persistence: unspecified Asthma complication type: uncomplicated Qualified Code(s): J45.909 - Unspecified asthma, uncomplicated (11) Hyperlipidemia: Status: Inactive Code(s): E78.5 - Hyperlipidemia, unspecified Qualifiers: Hyperlipidemia type: unspecified Qualified Code(s): E78.5 - Hyperlipidemia, unspecified (12) GERD (gastroesophageal reflux disease): Status: Acute Code(s): K21.9 - Gastro-esophageal reflux disease without esophagitis (13) BPH (benign prostatic hyperplasia): Status: Acute Code(s): N40.0 - Benign prostatic hyperplasia without lower urinary tract symptoms (14) Primary biliary cirrhosis: Status: Acute Code(s): K74.3 - Primary biliary cirrhosis (15) CAD (coronary artery disease): Status: Inactive Code(s): I25.10 - Atherosclerotic heart disease of craig coronary artery without angina pectoris Plan 88 year old male with below past medical history hospitalized for UTI, pneumonia, encephalopathy, complicated by NSTEMI, FRANKLIN, right ureteral stone, s/p right ureteral stent, admitted to TCU with debility, here for rehabilitation, strengthening, prior to discharge home with . * Debility - PT/OT. * Pain - Tylenol 1000mg q6 prn pain (1-10), Arthritis cream topical daily prn. * Bowel - senna/colace 1 tablet bid, Magnesium citrate 300ml po x 1 dose, Dulcolax 10mg pr daily prn. * Adult immunization - Administer pneumonia vaccine, covid vaccine, flu vaccine as appropriate. * DVT prophylaxis - Monitor. * Asthma - Fluticasone/salmeterol 232-14 1 puff bid, Albuterol 2 puffs q4h prn. * Coronary artery disease - Carvedilol 6.25mg bidcm, Aspirin 81mg daily, NTG 0.4mg sc q5m prn. * Hyperlipidemia - Atorvastatin 20mg qhs. * Cold sores lips - Bacitracin ointment topical bid. * Glaucoma - Brimonidine 1gtt ou bid, Latanoprost 0.005% 1gtt ou qhs, Rocklatan 1gtt ou qhs. * E. Coli UTI - Cefdinir 300mg bid thru 12/13/2023. * Vitamin D deficiency - D3 50mcg daily. * Vitamin B12 deficiency - B12 1000mcg daily. * Hyperlipidemia - Zetia 10mg daily. * GERD - Famotidine 20mg daily. * Iron deficiency anemia - Ferrous sulfate 325mg every other day. * BPH - Finasteride 5mg daily. * Edema - Furosemide 40mg daily. * Congestion - Mucinex 1200mg bid. * Allergic rhinitis - Loratadine 10mg daily prn. * Hypomagnesemia - Magnesium chloride 128mg qhs. * Nutrition - MVI daily. * Hypokalemia - KCL 10meq daily. * Primary biliary cirrhosis - Ursodiol 500mg bidcm. Medications at Discharge Home Medications aspirin 81 mg tablet,delayed release 81 mg PO DAILY@0800 [facility] 12/06/16 travoprost 0.004 % eye drops 1 drp EACH EYE QHS glaucoma 06/02/19 magnesium oxide (Tobin) 1,500 mg PO QHS Supplement 08/05/20 cholecalciferol (vitamin D3) 50 mcg (2,000 unit) tablet 50 mcg PO DAILY Supplement 11/19/20 cyanocobalamin (vitamin B-12) 1,000 mcg capsule 1,000 mcg PO DAILY Supplement 11/19/20 Disability Placard #1 ea 12/01/21 Arthritis Compound 1 click topical DAILY PRN Pain #60 CLICKS 02/08/22 albuterol sulfate 90 mcg/actuation aerosol inhaler (Ventolin HFA) 2 puff inhalation Q4H PRN Asthma #8.5 grams 04/28/23 nebulizer and compressor (Portable Nebulizer System) #1 ea 04/30/23 atorvastatin 20 mg tablet 20 mg PO QHS cholesterol #90 tabs 07/07/23 famotidine 20 mg tablet 20 mg PO DAILY GERD #90 tabs 08/10/23 brimonidine 0.1 % eye drops 1 drp ophthalmic (eye) DAILY Eye drops 08/15/23 budesonide-formoterol HFA 160 mcg-4.5 mcg/actuation aerosol inhaler (Symbicort) 2 puff inhalation BID Asthma 08/15/23 finasteride 5 mg tablet 5 mg PO DAILY BPH #90 tabs 08/18/23 ezetimibe 10 mg tablet 10 mg PO DAILY heart health #90 tabs 09/15/23 nitroglycerin 0.4 mg sublingual tablet 0.4 mg sublingual Q5-15M PRN chest pain #25 tabs 09/15/23 ferrous sulfate 325 mg (65 mg iron) tablet 325 mg PO QODAY Supplement #90 tabs 11/23/23 rwvwckrn-fii-tqege acid 0.4 mg-lycopene 300 mcg-lutein 250 mcg tablet (Centrum Silver) 1 tab PO DAILY supplement 12/02/23 netarsudil 0.02 %-latanoprost 0.005 % eye drops (Rocklatan) 1 drp ophthalmic (eye) QHS Eye drops 12/02/23 acetaminophen 500 mg tablet 1,000 mg (2 x 500 mg) PO Q6H PRN PRN Pain Score 1-10 #0 tabs 12/30/23 carvedilol 6.25 mg tablet 6.25 mg PO BIDCM 30 days #60 tabs 12/30/23 furosemide 40 mg tablet 40 mg PO DAILY 30 days #30 tabs 12/30/23 potassium chloride 10 mEq tablet,extended release(part/cryst) 10 meq PO DAILY 30 days #30 tabs 12/30/23 ursodiol 250 mg tablet 500 mg (2 x 250 mg) PO BIDCM #0 tabs 12/30/23 Hospital Course Operations - (See below.) Procedures None Summary of Care Provided Minutes Spent on Discharge: 35 Hospital Course: 88 year old male with below past medical history hospitalized for UTI, pneumonia, encephalopathy, complicated by NSTEMI, FRANKLIN, right ureteral stone, s/p right ureteral stent, admitted to TCU with debility, here for rehabilitation, strengthening, prior to discharge home with . 12/21/2023 Dr. Lee Surgery/Procedure Performed:: Cystoscopy, right ureteroscopy laser lithotripsy of stone and removal of stent Discharge home with 01/01/2024, [facility] PT/OT/RN. Physical Exam Const alert General Appearance: cooperative HEENT normocephalic Eyes PERRL and EOMs intact bilaterally Neck supple, no JVD and no carotid bruits Resp normal respiratory effort, normal air movement and clear to auscultation bilaterally Cardio regular rate and regular rhythm GI normal to inspection, nondistended, normoactive bowel sounds, non-tender and non-distended Extremity normal capillary refill General Extremity: Negative for edema Skin no rashes or lesions noted General Skin Exam: no breakdown Psych affect normal Appearance: appropriate Weight / BMI Weight Weight: 99.836 kg Body Mass Index (BMI) 29.7 ABG / Lab / Microbiology Data 12/30/23 05:39 12/30/23 05:39 Laboratory: Laboratory Results - last 24 hr 12/30/23 05:39: WBC 8.0, RBC 3.30 L, Hgb 9.8 L, Hct 31.8 L, MCV 96.4 H, MCH 29.7, MCHC 30.8 L, RDW Std Deviation 55.5 H, RDW Coeff of Angelia 15.6 H, Plt Count 183, MPV 9.7, Immature Gran % (Auto) 0.600, Neut % (Auto) 44.5 L, Lymph % (Auto) 35.0, [place] % (Auto) 13.6 H, Eos % (Auto) 5.4 H, Baso % (Auto) 0.9, Absolute Neuts (auto) 3.6, Absolute Lymphs (auto) 2.79, Nucleated RBC % 0, Sodium 138, Potassium 4.2, Chloride 105, Carbon Dioxide 33.0 H, Anion Gap 0 L, BUN 24 H, Creatinine 1.26, Estim Creat Clear Calc 51.48, Est GFR (MDRD) Af Amer 70, Est GFR (MDRD) Non-Af 58 L, BUN/Creatinine Ratio 19.0, Glucose 103, Calcium 9.2 Microbiology: Microbiology 12/10/23 13:22 Urine, Midstream Urine Culture - Final Presumptive C albicans Gram negative savannah D/C Instructions Discharge Diet: No restrictions Discharge Activity: Return to Normal Activity, May Shower and Use Walker Weight Bearing Status: Weight bearing as tolerated Call your doctor if you observe: Fever of 101 or Higher, Inability to urinate, Inability to have a bowel movement, Shortness of breath, Dizziness, Fainting spells, Swelling in the ankles, Chest pain and Uncontrolled pain Additional Instructions: Discharge home with 01/01/2024, [facility] PT/OT/RN. Please Follow Up With: Darien Lee MD When: As scheduled. Meaningful Use Info Meaningful Use Diagnoses (Choose all that apply): None applicable Discharge Plan Admission Admit Date/Time: 12/08/23 13:05 Primary Reason for Your Visit: Debility. Attending Provider: Arsenio Mcgregor Chi Primary Care Provider: Addi Mario Instructions Additional Instructions / Restrictions: Discharge home with 01/01/2024, [facility] PT/OT/RN. Discharge Orders/Prescriptions Prescriptions: New furosemide 40 mg Tablet 40 mg PO DAILY 30 Days Qty: 30 0RF carvedilol 6.25 mg Tablet 6.25 mg PO BIDCM 30 Days Qty: 60 0RF acetaminophen 500 mg Tablet 1,000 mg PO Q6H PRN PRN (Reason: Pain Score 1-10) Qty: 0 0RF potassium chloride 10 mEq Tablet,Er Particles/Crystals 10 meq PO DAILY 30 Days Qty: 30 0RF ursodiol 250 mg Tablet 500 mg PO BIDCM Qty: 0 0RF Continued magnesium oxide [Tobin] 500 mg tablet 1,500 mg PO QHS cyanocobalamin (vitamin B-12) 1,000 mcg capsule 1,000 mcg PO DAILY cholecalciferol (vitamin D3) 50 mcg (2,000 unit) tablet 50 mcg PO DAILY budesonide-formoterol [Symbicort] 160-4.5 mcg/actuation HFA aerosol inhaler 2 puff inhalation BID Rx Instructions: administer with spacer, rinse mouth after each use brimonidine 0.1 % drops 1 drp ophthalmic (eye) DAILY Rx Instructions: instill 1 drop into both eyes twice a day albuterol sulfate [Ventolin HFA] 90 mcg/actuation HFA aerosol inhaler 2 puff INHALATION Q4H PRN (Reason: Asthma) Qty: 8.5 2RF aspirin 81 MG tablet 81 mg PO DAILY@0800 travoprost 1 DROP bottle 1 drp EACH EYE QHS Centrum Silver 0.4 mg-300 mcg- 250 mcg tablet 1 tab PO DAILY Rocklatan 0.02-0.005 % drops 1 drp ophthalmic (eye) QHS Rx Instructions: INSTILL 1 DROP INTO EACH EYE AT BEDTIME Arthritis Compound 1 click TOPICAL DAILY PRN (Reason: Pain) Qty: 60 1RF Rx Instructions: Diclofenac 3%, Lidocaine 3%, Baclofen 2% 1 click=o.25g 1 click topical daily 60 click tube atorvastatin 20 mg tablet 20 mg PO QHS Qty: 90 3RF famotidine 20 mg tablet 20 mg PO DAILY Qty: 90 3RF finasteride 5 mg tablet 5 mg PO DAILY Qty: 90 3RF nitroglycerin 0.4 mg tablet, sublingual 0.4 mg SUBLINGUAL Q5-15M PRN (Reason: chest pain) Qty: 25 3RF ezetimibe 10 mg tablet 10 mg PO DAILY Qty: 90 3RF ferrous sulfate 325 mg (65 mg iron) tablet 325 mg PO QODAY Qty: 90 2RF Discontinued guaifenesin 1,200 mg tablet extended release 12hr 1,200 mg PO Q12H Qty: 60 6RF loratadine [Claritin] 10 mg tablet 10 mg PO DAILY furosemide 40 mg Tablet 40 mg PO DAILY Qty: 30 2RF carvedilol 6.25 mg Tablet 6.25 mg PO BID Qty: 60 2RF potassium chloride 10 mEq capsule, extended release 10 meq PO DAILY Qty: 30 2RF ciprofloxacin HCl [Cipro] 500 mg tablet 500 mg PO BID Qty: 10 0RF ursodiol 500 mg tablet See Rx Instructions .ROUTE .COMPLEX Qty: 180 3RF Dose Instruction: take 1 tablet by mouth twice a day with meals FOR LIVER DISEASE Rx Instructions: take 1 tablet by mouth twice a day with meals FOR LIVER DISEASE No Action (DME) Disability Placard See Rx Instructions .Route .MEDSUPPLY Qty: 1 0RF Rx Instructions: Expires 12/01/2026 (DME) nebulizer and compressor [Portable Nebulizer System] Device See Rx Instructions .Route Qty: 1 0RF Rx Instructions: As directed Referrals / Follow Up: Addi Mario MD [Primary Care Provider] - 01/04/24 10:00 am Disposition Disposition (needs filled in before D/C Order can be placed): Home Health Service
--- NOTE | 2023-12-30 14:16 | CASEMGMT ---
Social Work SW met with patient and completed DC MDS interviews. BIMS PHQ2 0/2 Pt stated he feels ready to go home and is looking forward to it. Dannielle CUENCAW
[2023-12-30 22:00] VITALS: PULSE 57; RESP 16; O2SAT 97
[2023-12-30] MEDS: NETARSUDIL MESYLAT/LATANOPROST 2.5 ML DROPS EACH EYE (22:58)
[2023-12-30] MEDS: Magnesium Chloride 64 MG Delay Rel.Tablet 128 MG PO (23:00)
[2023-12-30] MEDS: Atorvastatin Calcium 20 MG Tablet PO (23:01)
[2023-12-31 08:00] VITALS: PULSE 59; RESP 18; O2SAT 96
[2023-12-31] MEDS: BRIMONIDINE TARTRATE OPHTHALMIC ×2 (10:16→20:34)
[2023-12-31] MEDS: Ursodiol 250 MG Tablet 500 MG PO ×2 (10:17→17:01)
[2023-12-31] MEDS: Carvedilol 6.25 MG Tablet PO ×2 (10:18→17:01)
[2023-12-31] MEDS: Aspirin E.C. 81 MG Tablet PO (10:18)
[2023-12-31] MEDS: Multivitamins,Ther W-Minerals Tablet 1 TABLET PO (10:18)
[2023-12-31] MEDS: Ciprofloxacin 500 MG Tablet PO ×2 (10:18→20:37)
[2023-12-31] MEDS: Potassium Chloride Oral Tablet 10 MEQ PO (10:19)
[2023-12-31] MEDS: Furosemide 40 MG Tablet PO (10:19)
[2023-12-31] MEDS: Famotidine 20 MG Tablet PO (10:20)
[2023-12-31] MEDS: Senna/Docusate Sodium 1 Tablet 2 TABLET PO ×2 (10:20→20:35)
[2023-12-31] MEDS: Cyanocobalamin 500 MCG Tablet 1000 MCG PO (10:21)
[2023-12-31] MEDS: Cholecalciferol (VIT D3) 25 MCG TABLET (1,000 UNITS) 50 MCG PO (10:21)
[2023-12-31] MEDS: Ezetimibe 10 MG Tablet PO (10:22)
[2023-12-31] MEDS: Finasteride 5 MG Tablet PO (10:25)
[2023-12-31] MEDS: Menthol/Lanolin/Calamine/Znox 113 GM Tube 1 APPLIC TOPICAL ×2 (10:25→20:35)
[2023-12-31] MEDS: Fluticasone/Salmeterol 232-14 Inhaler 1 PUFF INHALATION ×2 (10:26→20:34)
[2023-12-31] MEDS: Petrolatum 33% Tube 1 APPLIC TOPICAL ×2 (10:27→20:37)
[2023-12-31 15:15] VITALS: BP 105/51; PULSE 55; RESP 18; TEMP 36.1; O2SAT 98
[2023-12-31] MEDS: Acetaminophen 500 MG Tablet 1000 MG PO (20:33)
[2023-12-31] MEDS: Atorvastatin Calcium 20 MG Tablet PO (20:34)
[2023-12-31] MEDS: Magnesium Chloride 64 MG Delay Rel.Tablet 128 MG PO (20:34)
[2023-12-31] MEDS: NETARSUDIL MESYLAT/LATANOPROST 2.5 ML DROPS EACH EYE (20:34)
[2024-01-01] MEDS: Acetaminophen 500 MG Tablet 1000 MG PO (03:15)
[2024-01-01 04:55] VITALS: PULSE 61; RESP 16; O2SAT 98
[2024-01-01 09:53] VITALS: BP 103/52; PULSE 60; RESP 17; TEMP 36.4; O2SAT 98
[2024-01-01] MEDS: Carvedilol 6.25 MG Tablet PO (09:56)
[2024-01-01] MEDS: BRIMONIDINE TARTRATE OPHTHALMIC (09:57)
[2024-01-01] MEDS: Multivitamins,Ther W-Minerals Tablet 1 TABLET PO (09:57)
[2024-01-01] MEDS: Aspirin E.C. 81 MG Tablet PO (09:57)
[2024-01-01] MEDS: Ursodiol 250 MG Tablet 500 MG PO (09:57)
[2024-01-01] MEDS: Menthol/Lanolin/Calamine/Znox 113 GM Tube 1 APPLIC TOPICAL (09:58)
[2024-01-01] MEDS: Fluticasone/Salmeterol 232-14 Inhaler 1 PUFF INHALATION (09:58)
[2024-01-01] MEDS: Petrolatum 33% Tube 1 APPLIC TOPICAL (09:58)
[2024-01-01] MEDS: Potassium Chloride Oral Tablet 10 MEQ PO (09:59)
[2024-01-01] MEDS: Famotidine 20 MG Tablet PO (09:59)
[2024-01-01] MEDS: Furosemide 40 MG Tablet PO (09:59)
[2024-01-01] MEDS: Senna/Docusate Sodium 1 Tablet 2 TABLET PO (10:00)
[2024-01-01] MEDS: Cyanocobalamin 500 MCG Tablet 1000 MCG PO (10:00)
[2024-01-01] MEDS: Finasteride 5 MG Tablet PO (10:00)
[2024-01-01] MEDS: Cholecalciferol (VIT D3) 25 MCG TABLET (1,000 UNITS) 50 MCG PO (10:01)
[2024-01-01] MEDS: Ezetimibe 10 MG Tablet PO (10:01)
[2024-01-01] MEDS: Ferrous Sulfate 325 MG Tablet PO (10:04)
== END 2024-01-01 10:35 | disposition home health service (06) | DRG 193 ==
PROVIDERS: Admitting Provider Family Medicine Geriatric Medicine; PCP Internal Medicine; Visit Provider Family Medicine Geriatric Medicine
DX: J18.9 Pneumonia, unspecified organism (principal); I21.4 Non-ST elevation (NSTEMI) myocardial infarction; G93.40 Encephalopathy, unspecified; N39.0 Urinary tract infection, site not specified; N20.1 Calculus of ureter; K74.3 Primary biliary cirrhosis; I48.0 Paroxysmal atrial fibrillation; M06.9 Rheumatoid arthritis, unspecified; D50.9 Iron deficiency anemia, unspecified; J45.909 Unspecified asthma, uncomplicated; E53.8 Deficiency of other specified B group vitamins; K21.9 Gastro-esophageal reflux disease without esophagitis; I25.10 Atherosclerotic heart disease of native coronary artery without angina pectoris; E78.5 Hyperlipidemia, unspecified; E55.9 Vitamin D deficiency, unspecified; E87.6 Hypokalemia; Z95.5 Presence of coronary angioplasty implant and graft; N40.0 Benign prostatic hyperplasia without lower urinary tract symptoms; H40.9 Unspecified glaucoma; B96.20 Unspecified Escherichia coli [E. coli] as the cause of diseases classified elsewhere; Z79.82 Long term (current) use of aspirin; Z79.899 Other long term (current) drug therapy; Z23 Encounter for immunization
CPT/HCPCS: 36415; 80048; 81001; 85014; 85018; 85025; 87086; 87088; 90480; 92507; 92523; 97110; 97112; 97116; 97129; 97130; 97162; 97166; 97530; 97535; 91322

== ENCOUNTER → 2023-12-21 | Day surgery (SDC) | payer MEDICARE, SELFPAY ==
[2023-12-21 14:26] VITALS: BP 128/69; PULSE 54; RESP 16; TEMP 36.5; O2SAT 98; BMI 31.7
[2023-12-21] MEDS: Lactated Ringers 1,000 ML 15 ML IV (14:45)
[2023-12-21] MEDS: Cefazolin 2 GM in 0.9% Normal Saline (100mL Bag) 100 ML IV (15:00)
--- NOTE | 2023-12-21 15:08 | DCINST_ITS ---
Discharge Instructions Diet Discharge Diet: No restrictions Activity Discharge Activity: Return to Normal Activity and May Not Drive (while taking narcotic pain medications.) Dressing / Incision Call your doctor if you observe: Fever of 101 or Higher Follow Up Care Please Follow Up With: Darien Lee MD When: Call [phone] for an appointment Test Results: Test results from this visit will be discussed in further detail at your follow- up appointment, if applicable. Discharge Plan Admission Primary Reason for Your Visit: laser right stone Attending Provider: Darien Lee Primary Care Provider: Addi Mario Discharge Orders/Prescriptions Prescriptions: New ciprofloxacin HCl [Cipro] 500 mg tablet 500 mg PO BID Qty: 10 0RF Continued magnesium oxide [Tobin] 500 mg tablet 1,500 mg PO QHS cyanocobalamin (vitamin B-12) 1,000 mcg capsule 1,000 mcg PO DAILY cholecalciferol (vitamin D3) 50 mcg (2,000 unit) tablet 50 mcg PO DAILY guaifenesin 1,200 mg tablet extended release 12hr 1,200 mg PO Q12H Qty: 60 6RF budesonide-formoterol [Symbicort] 160-4.5 mcg/actuation HFA aerosol inhaler 2 puff inhalation BID Rx Instructions: administer with spacer, rinse mouth after each use brimonidine 0.1 % drops 1 drp ophthalmic (eye) DAILY Rx Instructions: instill 1 drop into both eyes twice a day albuterol sulfate [Ventolin HFA] 90 mcg/actuation HFA aerosol inhaler 2 puff INHALATION Q4H PRN (Reason: Asthma) Qty: 8.5 2RF aspirin 81 MG tablet 81 mg PO DAILY@0800 travoprost 1 DROP bottle 1 drp EACH EYE QHS cetirizine 10 mg capsule 10 mg PO DAILY PRN (Reason: allergy) Centrum Silver 0.4 mg-300 mcg- 250 mcg tablet 1 tab PO DAILY Rocklatan 0.02-0.005 % drops 1 drp ophthalmic (eye) QHS Rx Instructions: INSTILL 1 DROP INTO EACH EYE AT BEDTIME furosemide 40 mg Tablet 40 mg PO DAILY Qty: 30 2RF carvedilol 6.25 mg Tablet 6.25 mg PO BID Qty: 60 2RF potassium chloride 10 mEq capsule, extended release 10 meq PO DAILY Qty: 30 2RF (DME) Disability Placard See Rx Instructions .Route .MEDSUPPLY Qty: 1 0RF Rx Instructions: Expires 12/01/2026 Arthritis Compound 1 click TOPICAL DAILY PRN (Reason: Pain) Qty: 60 1RF Rx Instructions: Diclofenac 3%, Lidocaine 3%, Baclofen 2% 1 click=o.25g 1 click topical daily 60 click tube (DME) nebulizer and compressor [Portable Nebulizer System] Device See Rx Instructions .Route Qty: 1 0RF Rx Instructions: As directed atorvastatin 20 mg tablet 20 mg PO QHS Qty: 90 3RF ursodiol 500 mg tablet See Rx Instructions .ROUTE .COMPLEX Qty: 180 3RF Dose Instruction: take 1 tablet by mouth twice a day with meals FOR LIVER DISEASE Rx Instructions: take 1 tablet by mouth twice a day with meals FOR LIVER DISEASE famotidine 20 mg tablet 20 mg PO DAILY Qty: 90 3RF finasteride 5 mg tablet 5 mg PO DAILY Qty: 90 3RF nitroglycerin 0.4 mg tablet, sublingual 0.4 mg SUBLINGUAL Q5-15M PRN (Reason: chest pain) Qty: 25 3RF ezetimibe 10 mg tablet 10 mg PO DAILY Qty: 90 3RF ferrous sulfate 325 mg (65 mg iron) tablet 325 mg PO QODAY Qty: 90 2RF Referrals / Follow Up: Addi Mario MD [Primary Care Provider] - Darien Lee MD [Med Staff - Active Staff] - Disposition Disposition (needs filled in before D/C Order can be placed): Home, Self Care
--- NOTE | 2023-12-21 15:08 | PCM.HP.STD ---
HPI - General General Date of Service: 12/21/23 Chief Complaint: Right kidney stone HPI Narrative ARNULFO RUST, is a 88 M who presents for laser of her right kidney stone and removal of stent [facility] Medical History Advanced directives, counseling/discussion Anemia Anginal equivalent Aortic stenosis Asthma Atherosclerosis of coronary artery of [place] heart without angina pectoris Atrial fibrillation BPH (benign prostatic hyperplasia) Bradycardia Cardiomyopathy Cholelithiasis without obstruction Closed vertical fracture of left patella Degenerative disc disease, cervical Dermatitis Dizziness Essential hypertension Extensor tenosynovitis of right wrist Fall Fracture of triquetrum of left wrist Fracture of triquetrum of right wrist Glaucoma History of colon polyps History of pneumonia History of skin cancer Hyperlipidemia Hypertension Hyponatremia Iron deficiency anemia Left facial swelling Liver disease Memory impairment Migraines Mitral regurgitation Multiple fractures New onset atrial fibrillation Non-smoker Non-STEMI (non-ST elevated myocardial infarction) Nonrheumatic aortic valve stenosis Obesity Orthostatic hypotension Osteoarthritis Paroxysmal atrial fibrillation Physical debility Primary biliary cirrhosis Psoriasis Restrictive airway disease Rheumatoid arthritis Rheumatoid arthritis Right foot pain Seasonal allergies Sepsis Sinus bradycardia Thrombocytopenia Ureteral calculi Vitamin D deficiency Home Medications aspirin 81 mg tablet,delayed release 81 mg PO DAILY@0800 heart [facility] 12/06/16 [History Last Taken 12/19/23] travoprost 0.004 % eye drops 1 drp EACH EYE QHS glaucoma 06/02/19 [History Last Taken 06/06/20] magnesium oxide (Tobin) 1,500 mg PO QHS Supplement 08/05/20 [History Last Taken 12/01/23] cholecalciferol (vitamin D3) 50 mcg (2,000 unit) tablet 50 mcg PO DAILY Supplement 11/19/20 [History Last Taken 12/01/23] cyanocobalamin (vitamin B-12) 1,000 mcg capsule 1,000 mcg PO DAILY Supplement 11/19/20 [History Last Taken 12/01/23] Disability Placard #1 ea 12/01/21 [Rx Last Taken Unknown] Arthritis Compound 1 click topical DAILY PRN Pain #60 CLICKS 02/08/22 [Rx Last Taken Unknown] cetirizine 10 mg capsule 10 mg PO DAILY PRN allergy 10/05/22 [History Last Taken 12/01/23] albuterol sulfate 90 mcg/actuation aerosol inhaler (Ventolin HFA) 2 puff inhalation Q4H PRN Asthma #8.5 grams 08/10/23 [Rx Last Taken Unknown] nebulizer and compressor (Portable Nebulizer System) #1 ea 04/30/23 [Rx Last Taken Unknown] guaifenesin 1,200 mg tablet, extended release 12 hr 1,200 mg PO Q12H Mucus #60 tabs 06/29/23 [Rx Last Taken 12/02/23] atorvastatin 20 mg tablet 20 mg PO QHS cholesterol #90 tabs 07/07/23 [Rx Last Taken 12/01/23] ursodiol 500 mg tablet See Rx Instructions .Route .COMPLEX Liver #180 tabs 08/03/23 [Rx Last Taken 12/02/23] famotidine 20 mg tablet 20 mg PO DAILY GERD #90 tabs 08/10/23 [Rx Last Taken 12/02/23] brimonidine 0.1 % eye drops 1 drp ophthalmic (eye) DAILY Eye drops 08/15/23 [History Last Taken 12/08/23] budesonide-formoterol HFA 160 mcg-4.5 mcg/actuation aerosol inhaler (Symbicort) 2 puff inhalation BID Asthma 08/15/23 [History Last Taken 12/02/23] finasteride 5 mg tablet 5 mg PO DAILY BPH #90 tabs 08/18/23 [Rx Last Taken 12/02/23] ezetimibe 10 mg tablet 10 mg PO DAILY heart health #90 tabs 09/15/23 [Rx Last Taken 12/02/23] nitroglycerin 0.4 mg sublingual tablet 0.4 mg sublingual Q5-15M PRN chest pain #25 tabs 09/15/23 [Rx Last Taken Unknown] ferrous sulfate 325 mg (65 mg iron) tablet 325 mg PO QODAY Supplement #90 tabs 11/23/23 [Rx Last Taken 12/01/23] fnqmoxtn-yys-iukeu acid 0.4 mg-lycopene 300 mcg-lutein 250 mcg tablet (Centrum Silver) 1 tab PO DAILY supplement 12/02/23 [History Last Taken 12/01/23] netarsudil 0.02 %-latanoprost 0.005 % eye drops (Rocklatan) 1 drp ophthalmic (eye) QHS Eye drops 12/02/23 [History Last Taken 12/02/23] carvedilol 6.25 mg tablet 6.25 mg PO BID BP #60 tabs 12/08/23 [Rx Last Taken Unknown] furosemide 40 mg tablet 40 mg PO DAILY Fluid retention #30 tabs 12/08/23 [Rx Last Taken Unknown] potassium chloride 10 mEq capsule,extended release 10 meq PO DAILY supplement #30 caps 12/08/23 [Rx Last Taken Unknown] ciprofloxacin HCl 500 mg tablet (Cipro) 500 mg PO BID #10 tabs 12/21/23 [Rx Last Taken Unknown] Allergy/AdvReac Type Severity Reaction Status Date / Time metoprolol [From Lopressor] Allergy Intermediate Shortness Verified 12/21/23 14:25 of breath Penicillins Allergy Rash Verified 12/21/23 14:25 Family History Father Hypertension Grandmother Hypertension Other Alcoholism Liver disease Surgical History History of appendectomy History of cataract extraction History of colon resection History of coronary artery stent placement History of partial colectomy (~2003) Presence of stent in coronary artery Social History (Updated 12/08/23 @ 17:[address] Arsenio Mcgregor MD) household members: spouse Smoking Status: Never smoker alcohol intake: current alcohol intake frequency: holidays/special occasions only substance use type: does not use caffeine: No what type of physical activity do you participate in: weight training Vital Signs Vital Signs Vital Signs: 12/21/23 14:26 12/21/23 14:26 Temperature 97.7 F L Temperature Source Temporal Pulse Rate 54 L Respiratory Rate 16 Respiratory Pattern Normal Blood Pressure 128/69 H Blood Pressure Mean 88 Blood Pressure Source Monitor Blood Pressure Position Semi-Fowlers Blood Pressure Location Left Arm Pulse Ox 98 Oxygen Delivery Method Room Air Weight Weight: 106.141 kg Body Mass Index (BMI) 31.7
--- NOTE | 2023-12-21 15:44 | PCM.OPRPT ---
Report of Operation Date of Procedure: 12/21/23 Pre-Operative Diagnosis: Right ureteral calculi Post-Operative Diagnosis: The same Surgery/Procedure Performed:: Cystoscopy, right ureteroscopy laser lithotripsy of stone and removal of stent Description of Surgical Findings:: Patient takeback to the operating room at a smooth duction of general anesthesia he was placed in dorsolithotomy position within the bladder with a 21 Vietnamese rigid cystourethroscope grabbed the existing stent pulled out the meatus put a wire through the stent up into the right kidney and coiled in the kidney then went over the wire with the flexible ureteroscope was able to get up in the kidney and then I encountered the stone in the lower pole of the right kidney I then performed laser lithotripsy and lasered the stone little tiny pieces using a 270 ?m laser fiber the stone was lasered completely and the small pieces should all pass on their own with time, they worked my way down the ureter there is no obstruction along the course of the ureter remove the cyst flexible cystoscope drain the bladder patient anesthetic was reversed and asked see him back in the office in about 6 weeks for checkup no stent was placed. Surgeon: Darien Lee Type of Anesthesia: General Drains: none Admit VTE Documentation VTE Present on Admission: No VTE Mechan Device Prophylaxis: SCD's VTE Pharm Prophylaxis ordered?: No
[2023-12-21 15:55] VITALS: BP 128/69; BP 144/65; PULSE 63; RESP 16; TEMP 35.9; O2SAT 97
[2023-12-21 16:00] VITALS: BP 128/69; BP 136/84; PULSE 63; RESP 16; O2SAT 95
[2023-12-21 16:05] VITALS: BP 128/69; BP 144/66; PULSE 59; RESP 16; TEMP 36.1; O2SAT 97
[2023-12-21 16:10] VITALS: BP 128/69; BP 148/60; PULSE 62; RESP 16; TEMP 36.1; O2SAT 97
== END | disposition home or self-care (01) ==
PROVIDERS: PCP Internal Medicine; Referring Provider Internal Medicine; Visit Provider Urology
PROC: 0TJ98ZZ Inspection of Ureter, Via Natural or Artificial Opening Endoscopic (ICD-10-PCS; CPT 52352; principal; 2023-12-21 14:55)
DX: N20.2 Calculus of kidney with calculus of ureter (principal); I48.0 Paroxysmal atrial fibrillation; I25.10 Atherosclerotic heart disease of native coronary artery without angina pectoris; I25.2 Old myocardial infarction; J45.909 Unspecified asthma, uncomplicated; N40.0 Benign prostatic hyperplasia without lower urinary tract symptoms; I10 Essential (primary) hypertension; I35.0 Nonrheumatic aortic (valve) stenosis; Z79.51 Long term (current) use of inhaled steroids; Z79.82 Long term (current) use of aspirin; Z79.899 Other long term (current) drug therapy; Z95.5 Presence of coronary angioplasty implant and graft
CPT/HCPCS: 52353; 00910; 76000; J7120; C1769; J2405

== ENCOUNTER → 2024-02-15 | Outpatient (CLI) | payer MEDICARE, SELFPAY ==
[2024-02-15 16:37] LABS: Absolute Lymphocyte Count 2.22 X10^3/uL (0.83-4.51); Absolute Neutrophil Count 4.7 X10^3/uL (2.0-7.7); Basophil# 0.04 X10^3/uL; Basophil% 0.5 % (0-1); Eosinophil# 0.17 X10^3/uL; Eosinophils% 2.1 % (0-5); Hematocrit 37.6 % (40-54); Hemoglobin 11.4 g/dL (13.0-16.5); Lymphocyte # 2.22 X10^3/ul (0.83-4.51); Lymphocyte % 27.3 % (19-41); Mean Corp Hgb Conc 30.3 g/dL (32-36); Mean Corpuscular Hgb 29.7 pg (27.0-32.0); Mean Corpuscular Volume 97.9 fL (80-94); Mean Platelet Vol. 11.5 fl (6.2-12.0); Monocyte# 0.95 X10^3/uL; Monocyte% 11.7 % (0-10); NRBC Flagged by Analyzer 0 % (0-5); Neutrophil # 4.74 X10^3/uL (2.7-7.7); Neutrophil % 58.3 % (47-70); Platelet Count 144 K/mm3 (150-450); RBC Distribution Width CV 16.5 % (11.6-14.6); RBC Distribution Width SD 59.7 fl (35.1-43.9); Red Blood Count 3.84 M/mm3 (4.6-6.2); White Blood Count 8.1 K/mm3 (4.4-11.0)
[2024-02-15 16:50] LABS: ALB/GLOB Ratio 0.6 RATIO (0.9-2.4); AST(SGOT) 32 U/L (15-37); Alanine Aminotransfer ALT/SGPT 27 U/L (16-61); Albumin, Serum 3.1 g/dL (3.2-5.0); Alkaline Phosphatase 80 U/L (45-117); Anion Gap 2 (5-15); BUN 17 mg/dL (7-18); BUN/Creat Ratio 16.2 RATIO (10-20); Calcium,Total 9.4 mg/dL (8.5-10.1); Chloride 104 mmol/L (98-107); Cholesterol 131 mg/dL (200); Creatinine, Serum 1.05 mg/dL (0.70-1.30); EST Glomerular Filtration Rate 71 mL/min (>60); Est Glom Filt Rate - Afr Amer 86 mL/min (>60); Globulin 4.9 g/dL (2.2-4.2); Glucose 100 mg/dL (74-106); High Density Lipoprotein 46 mg/dL; Potassium 4.1 mmol/L (3.5-5.1); Sodium Level 138 mmol/L (136-145); Triglycerides 98 mg/dL; Very Low Density Lipoprotein 20 mg/dL (5-40)
== END | disposition home or self-care (01) ==
LOC: BIMLAB 14:25
PROVIDERS: PCP Internal Medicine; Visit Provider Internal Medicine
DX: I10 Essential (primary) hypertension (principal); E78.5 Hyperlipidemia, unspecified
CPT/HCPCS: 36415; 80053; 80061; 85025

== ENCOUNTER → 2024-02-29 | Outpatient (CLI) | payer MEDICARE, SELFPAY ==
--- NOTE | 2024-02-29 13:56 | ECHOL_ITS ---
Reason For Study: AORTIC STENOSIS Procedure This was a limited 2D transthoracic echocardiogram. Myocardial strain analysis was performed in this exam to aid in the assessment of cardiac function. Exam performed in department. Left Ventricle Normal LV size. Mild concentric left ventricular hypertrophy. Left ventricular systolic function is normal. The left ventricular ejection fraction is 55 %. No regional wall motion abnormalities noted. Right Ventricle Normal RV size. Normal systolic function. Atria The left atrium is mildly enlarged. Normal right atrium. Mitral Valve Mild (1+) mitral valve insufficiency. Tricuspid Valve Normal tricuspid valve. Mild (1+) tricuspid valve insufficiency. Pulmonary artery systolic pressure is 38 mmHg. Aortic Valve Trisinus/trileaflet aortic valve. Moderate focal aortic valve calcification. Peak aortic valve gradient 36 mmHg. Mean aortic valve gradient 19 mmHg. Mild aortic stenosis. Mild (1+) aortic valve insufficiency. Pulmonic Valve Normal pulmonic valve. Great Vessels Calcified aortic root. The pulmonary artery is normal size. Normal inferior vena cava. Pericardium/Pleural No pericardial effusion. MMode/2D Measurements & Calculations LVIDd: 5.3 cm IVSd: 1.2 cm LVOT diam: 2.0 cm LVIDs: 3.2 cm LVPWd: 1.2 cm LVOT area: 3.3 cm2 FS: 40.2 % Ao root diam: 3.7 cm LAV(MOD-bp): 95.7 ml LVAd ap4: 32.8 cm2 LAV(MOD-bp) Indexed: 43.7 ml/m2 LVLd ap4: 8.1 cm LAV(MOD-sp2): 109.1 ml EDV(MOD-sp4): 107.7 ml LAV(MOD-sp4): 77.8 ml EDV(sp4-el): 112.4 ml LVAs ap4: 21.2 cm2 LVLs ap4: 7.1 cm ESV(MOD-sp4): 53.3 ml ESV(sp4-el): 53.9 ml EF(MOD-sp4): 50.5 % EF(sp4-el): 52.0 % LVAd ap2: 31.6 cm2 SV(MOD-sp4): 54.4 ml SV(MOD-sp2): 51.3 ml LVLd ap2: 9.3 cm EDV(MOD-sp2): 92.4 ml EDV(sp2-el): 91.5 ml LVAs ap2: 18.4 cm2 LVLs ap2: 7.6 cm ESV(MOD-sp2): 41.1 ml ESV(sp2-el): 37.9 ml EF(MOD-sp2): 55.5 % SV(sp4-el): 58.4 ml LA dimension(2D): 4.6 cm LA A4 area: 24.7 cm2 RA A4 area: 15.1 cm2 Doppler Measurements & Calculations Ao V2 max: 299.7 cm/sec AI max nick: 339.3 cm/sec LV V1 max: 152.1 cm/sec Ao max P.1 mmHg AI max P.1 mmHg LV V1 max P.2 mmHg Ao V2 mean: 207.1 cm/sec LV V1 mean P.7 mmHg Ao mean P.1 mmHg AI dec slope: 103.7 cm/sec2 LV V1 mean: 113.7 cm/sec Ao V2 VTI: 71.1 cm AI P1/2t: 958.1 msec LV V1 VTI: 37.2 cm AV (velocity ratio): 0.52 SHRUTHI(I,D): 1.7 cm2 SHRUTHI(V,D): 1.7 cm2 SV(LVOT): 122.4 ml TR max nick: 291.9 cm/sec TR max P.1 mmHg ECHO/Echo, Limited Study Interpretation Summary Normal LV size. Left ventricular systolic function is normal. Moderate focal aortic valve calcification. Mild (1+) aortic valve insufficiency. The left ventricular ejection fraction is 55 %. Mean aortic valve gradient 19 mmHg. Mild aortic stenosis. Ordering Physician: Moreno Power Referring Physician: Addi Mario Performed By: Meghann Lynne RDCS and Student
== END | disposition home or self-care (01) ==
LOC: CVS 13:55
PROVIDERS: PCP Internal Medicine; Referring Provider Nurse Practitioner Family; Visit Provider Nurse Practitioner Family
DX: I35.0 Nonrheumatic aortic (valve) stenosis (principal); I50.9 Heart failure, unspecified; I48.0 Paroxysmal atrial fibrillation; I25.10 Atherosclerotic heart disease of native coronary artery without angina pectoris; Z95.5 Presence of coronary angioplasty implant and graft
CPT/HCPCS: 93308

== ENCOUNTER → 2024-04-17 | Outpatient (CLI) | payer MEDICARE, SELFPAY ==
[2024-04-17 15:19] LABS: Hematocrit 35.9 % (40-54); Hemoglobin 11.4 g/dL (13.0-16.5); Mean Corp Hgb Conc 31.8 g/dL (32-36); Mean Corpuscular Volume 97.6 fL (80-94); Mean Platelet Vol. 11.7 fl (6.2-12.0); Platelet Count 138 K/mm3 (150-450); RBC Distribution Width CV 14.4 % (11.6-14.6); RBC Distribution Width SD 51.3 fl (35.1-43.9); Red Blood Count 3.68 M/mm3 (4.6-6.2)
[2024-04-17 15:30] LABS: Anion Gap 3 (5-15); BUN 16 mg/dL (7-18); BUN/Creat Ratio 16.4 RATIO (10-20); Calcium,Total 9.3 mg/dL (8.5-10.1); Chloride 101 mmol/L (98-107); Creatinine, Serum 0.98 mg/dL (0.70-1.30); EST Glomerular Filtration Rate 77 mL/min (>60); Est Glom Filt Rate - Afr Amer 94 mL/min (>60); Glucose 92 mg/dL (74-106); Potassium 3.8 mmol/L (3.5-5.1); Sodium Level 138 mmol/L (136-145)
== END | disposition home or self-care (01) ==
LOC: BIMLAB 11:51
PROVIDERS: PCP Internal Medicine; Visit Provider Internal Medicine Cardiovascular Disease
DX: I48.0 Paroxysmal atrial fibrillation (principal); Z79.01 Long term (current) use of anticoagulants
CPT/HCPCS: 36415; 80048; 85027

== ENCOUNTER → 2024-04-21 | Outpatient (CLI) | payer MEDICARE, SELFPAY ==
[2024-04-21 10:38] LABS: Mucous, Urine 0 SEEN /hpf (<or=2+); Red Blood Cells-Urine 0 SEEN /hpf (0-5); Squamous Epithelial Cells - UA 0 SEEN /hpf (0-5)
[2024-04-21 11:19] LABS: Color, Urine Yellow (Yellow); Glucose, Dipstick Normal (Normal); Ketone-Dipstick Negative (Negative); Leukocyte Esterase-Dipstick 25 /ul (Negative); Nitrite-Dipstick Negative (Negative); Occult Blood-Urine Negative /ul (Negative); Protein-Dipstick Negative (Negative); Urine Bilirubin Dipstick Negative (Negative); Urine Clarity Clear (Clear); Urine Urobilinogen Normal (Normal); Urine pH 6.5 (5.0 - 8.0)
[2024-04-21 11:37] LABS: Bacteria 1+ /hpf (None Seen); White Blood Cells 10-25 SEEN /hpf (0-5)
== END | disposition home or self-care (01) ==
LOC: LAB 10:33
PROVIDERS: PCP Internal Medicine; Referring Provider Physician Assistant Medical; Visit Provider Physician Assistant Medical
DX: D64.9 Anemia, unspecified (principal)
CPT/HCPCS: 81001; 82274

== ENCOUNTER → 2024-04-24 | Outpatient (CLI) | payer MEDICARE, SELFPAY | END | disposition home or self-care (01) | LOC: PSN 12:59 | PROVIDERS: PCP Internal Medicine; Referring Provider Nurse Practitioner Acute Care; Visit Provider Nurse Practitioner Acute Care | DX: R06.02 Shortness of breath (principal) | CPT/HCPCS: 94060; 94726; 94729 ==

== ENCOUNTER → 2024-04-26 | Outpatient (CLI) | payer MEDICARE, SELFPAY ==
[2024-04-26 13:45] VITALS: PULSE 59; PULSE 63; PULSE 69; PULSE 70; PULSE 74; PULSE 81; O2SAT 90; O2SAT 92; O2SAT 93; O2SAT 97; O2SAT 98
--- NOTE | 2024-04-30 06:54 | PCM.PSN.6M ---
PSN 6 Minute Walk Test 6 Minute Walk Test 6 Minute Walk Test: 6 Minute Walk Test PSN:6-Minute Walk Test Start: 04/26/24 14:05 Freq: Status: Active Protocol: [id number].[id number] Document 04/26/24 13:45 EW (Rec: 04/26/24 14:19 EW [id number]) 6 Minute Walk Test Date Performed 04/26/24 Time Performed 13:45 Height 6 ft Weight: 213 lb Weight in Pounds 213.[address]: Ailin Sharma PHARMACY RESIDENT Assistive device used: Walker Pre-test Oxygen Delivery Method Room Air Pulse Ox (%) 98 Pulse Rate (60-100 beats/min) 59 L Dyspnea Darling Scale (0-10) 0 Exertion Darling Scale (6-20) 8 1st minute Oxygen Delivery Method Room Air Pulse Ox (%) 97 Pulse Rate (60-100 beats/min) 63 2nd minute Oxygen Delivery Method Room Air Pulse Ox (%) 92 Pulse Rate (60-100 beats/min) 74 3rd minute Oxygen Delivery Method Room Air Pulse Ox (%) 92 Pulse Rate (60-100 beats/min) 70 4th minute Oxygen Delivery Method Room Air Pulse Ox (%) 90 Pulse Rate (60-100 beats/min) 74 5th minute Oxygen Delivery Method Room Air Pulse Ox (%) 93 Pulse Rate (60-100 beats/min) 74 6th minute Oxygen Delivery Method Room Air Pulse Ox (%) 93 Pulse Rate (60-100 beats/min) 81 Post-test Oxygen Delivery Method Room Air Pulse Ox (%) 97 Pulse Rate (60-100 beats/min) 69 Dyspnea Darling Scale (0-10) 1 Exertion Darling Scale (6-20) 10 Full Laps Walked 16 Partial Lap, Number of Tiles Walked 0 Total Distance Walked (ft) 944 Interpretation Interpretation: The patient ambulated 944 feet over the course of 6 minutes beginning on room air with use of a walker. Pretesting oxygen saturation was noted to be 98% on room air. With ambulation, the moises oxygen saturation was 90%. 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 Recommendations Recommendations: There is no indication for the use of supplemental oxygen at this time. However, close interval follow-up is recommended, given the degree of oxygen desaturation noted during the study.
== END | disposition home or self-care (01) ==
PROVIDERS: PCP Internal Medicine; Referring Provider Nurse Practitioner Acute Care; Visit Provider Nurse Practitioner Acute Care
DX: R06.02 Shortness of breath (principal)
CPT/HCPCS: 94618

== ENCOUNTER → 2024-05-16 | Outpatient (CLI) | payer MEDICARE, SELFPAY ==
[2024-05-16 15:22] LABS: Absolute Lymphocyte Count 2.52 X10^3/uL (0.83-4.51); Absolute Neutrophil Count 3.6 X10^3/uL (2.0-7.7); Basophil# 0.03 X10^3/uL; Basophil% 0.4 % (0-1); Eosinophil# 0.28 X10^3/uL; Eosinophils% 3.8 % (0-5); Hematocrit 36.4 % (40-54); Hemoglobin 11.4 g/dL (13.0-16.5); Lymphocyte # 2.52 X10^3/ul (0.83-4.51); Lymphocyte % 34.2 % (19-41); Mean Corp Hgb Conc 31.3 g/dL (32-36); Mean Corpuscular Hgb 30.7 pg (27.0-32.0); Mean Corpuscular Volume 98.1 fL (80-94); Mean Platelet Vol. 11.6 fl (6.2-12.0); Monocyte% 12.2 % (0-10); NRBC Flagged by Analyzer 0 % (0-5); Neutrophil # 3.61 X10^3/uL (2.7-7.7); Neutrophil % 49.1 % (47-70); Platelet Count 145 K/mm3 (150-450); RBC Distribution Width CV 14.1 % (11.6-14.6); RBC Distribution Width SD 50.7 fl (35.1-43.9); Red Blood Count 3.71 M/mm3 (4.6-6.2); White Blood Count 7.4 K/mm3 (4.4-11.0)
== END | disposition home or self-care (01) ==
LOC: BIMLAB 13:49
PROVIDERS: PCP Internal Medicine; Referring Provider Internal Medicine; Visit Provider Internal Medicine
DX: R19.5 Other fecal abnormalities (principal)
CPT/HCPCS: 36415; 85025

== ENCOUNTER → 2024-08-15 | Outpatient (CLI) | payer MEDICARE, SELFPAY ==
[2024-08-15 16:48] LABS: Absolute Lymphocyte Count 1.84 X10^3/uL (0.83-4.51); Absolute Neutrophil Count 3.2 X10^3/uL (2.0-7.7); Basophil# 0.04 X10^3/uL; Basophil% 0.7 % (0-1); Eosinophil# 0.19 X10^3/uL; Eosinophils% 3.2 % (0-5); Hematocrit 38.7 % (40-54); Hemoglobin 12.5 g/dL (13.0-16.5); Lymphocyte # 1.84 X10^3/ul (0.83-4.51); Lymphocyte % 31.2 % (19-41); Mean Corp Hgb Conc 32.3 g/dL (32-36); Mean Corpuscular Hgb 31.7 pg (27.0-32.0); Mean Corpuscular Volume 98.2 fL (80-94); Mean Platelet Vol. 11.3 fl (6.2-12.0); Monocyte# 0.62 X10^3/uL; Monocyte% 10.5 % (0-10); NRBC Flagged by Analyzer 0 % (0-5); Neutrophil # 3.19 X10^3/uL (2.7-7.7); Neutrophil % 54.1 % (47-70); Platelet Count 129 K/mm3 (150-450); RBC Distribution Width CV 14.6 % (11.6-14.6); RBC Distribution Width SD 53.1 fl (35.1-43.9); Red Blood Count 3.94 M/mm3 (4.6-6.2); White Blood Count 5.9 K/mm3 (4.4-11.0)
[2024-08-15 16:51] LABS: Vitamin B12 992 pg/mL (211-911)
[2024-08-15 16:59] LABS: ALB/GLOB Ratio 0.7 RATIO (0.9-2.4); AST(SGOT) 27 U/L (15-37); Alanine Aminotransfer ALT/SGPT 21 U/L (16-61); Albumin, Serum 3.3 g/dL (3.2-5.0); Alkaline Phosphatase 91 U/L (45-117); Anion Gap 5 (5-15); BUN 16 mg/dL (7-18); BUN/Creat Ratio 15.4 RATIO (10-20); Calcium,Total 9.6 mg/dL (8.5-10.1); Chloride 104 mmol/L (98-107); Creatinine, Serum 1.04 mg/dL (0.70-1.30); EST Glomerular Filtration Rate 72 mL/min (>60); Est Glom Filt Rate - Afr Amer 87 mL/min (>60); Globulin 4.7 g/dL (2.2-4.2); Glucose 108 mg/dL (74-106); Potassium 3.9 mmol/L (3.5-5.1); Sodium Level 140 mmol/L (136-145)
== END | disposition home or self-care (01) ==
LOC: BIMLAB 14:57
PROVIDERS: PCP Internal Medicine; Referring Provider Internal Medicine; Visit Provider Internal Medicine
DX: E78.5 Hyperlipidemia, unspecified (principal); I10 Essential (primary) hypertension
CPT/HCPCS: 36415; 80053; 82607; 85025

== ENCOUNTER → 2024-11-15 | Outpatient (CLI) | payer MEDICARE, SELFPAY ==
[2024-11-15 16:48] LABS: Absolute Lymphocyte Count 2.07 X10^3/uL (0.83-4.51); Absolute Neutrophil Count 4.5 X10^3/uL (2.0-7.7); Basophil# 0.04 X10^3/uL; Basophil% 0.5 % (0-1); Eosinophil# 0.17 X10^3/uL; Eosinophils% 2.2 % (0-5); Hematocrit 38.2 % (40-54); Hemoglobin 12.1 g/dL (13.0-16.5); Lymphocyte # 2.07 X10^3/ul (0.83-4.51); Lymphocyte % 27.1 % (19-41); Mean Corp Hgb Conc 31.7 g/dL (32-36); Mean Corpuscular Hgb 31.5 pg (27.0-32.0); Mean Corpuscular Volume 99.5 fL (80-94); Mean Platelet Vol. 11.3 fl (6.2-12.0); Monocyte# 0.85 X10^3/uL; Monocyte% 11.1 % (0-10); NRBC Flagged by Analyzer 0 % (0-5); Neutrophil # 4.47 X10^3/uL (2.7-7.7); Neutrophil % 58.7 % (47-70); Platelet Count 142 K/mm3 (150-450); RBC Distribution Width CV 14.4 % (11.6-14.6); RBC Distribution Width SD 52.8 fl (35.1-43.9); Red Blood Count 3.84 M/mm3 (4.6-6.2); White Blood Count 7.6 K/mm3 (4.4-11.0)
[2024-11-15 18:46] LABS: Anion Gap 8 (5-15); BUN 17 mg/dL (4-19); BUN/Creat Ratio 19.3 RATIO (10-20); Calcium 9.6 mg/dL (7.6-11.0); Carbon Dioxide 28.4 mmol/L (22.0-29.0); Chloride 102 mmol/L (96-108); Cholesterol 126 mg/dL (<=200); Creatinine, Serum 0.86 mg/dL (0.70-1.20); EST Glomerular Filtration Rate 84 (>60); Ferritin 71 ng/mL (37-417); Glucose 87 mg/dL (70-99); High Density Lipoprotein 52 mg/dL; Low Density Lipoprotein Calc. 55 mg/dL; Potassium 4.4 mmol/L (3.3-5.1); Sodium Level 139 mmol/L (133-145); Triglycerides 91 mg/dL; Very Low Density Lipoprotein 18 mg/dL (5-40)
[2024-11-15 19:46] LABS: Iron 50 ug/dL (65-175)
[2024-11-15 20:11] LABS: Iron Binding Capacity,Total 289 ug/dL (250-450)
== END | disposition home or self-care (01) ==
LOC: BIMLAB 15:37
PROVIDERS: PCP Internal Medicine; Referring Provider Internal Medicine; Visit Provider Internal Medicine
DX: D64.9 Anemia, unspecified (principal); E78.5 Hyperlipidemia, unspecified
CPT/HCPCS: 36415; 80048; 80061; 82728; 83540; 83550; 85025

== ENCOUNTER → 2024-12-27 | Outpatient (CLI) | payer MEDICARE, SELFPAY ==
[2024-12-27 16:11] LABS: Vitamin B12 512 pg/mL (180-914)
[2024-12-29 08:08] LABS: Rubeola IgG Ab > 300.0 AU/mL (Immune >16.4)
== END | disposition home or self-care (01) ==
LOC: BIMLAB 11:49
PROVIDERS: PCP Internal Medicine; Referring Provider Internal Medicine; Visit Provider Internal Medicine
DX: Z01.84 Encounter for antibody response examination (principal); D64.9 Anemia, unspecified
CPT/HCPCS: 82607; 86765

== ENCOUNTER → 2025-01-02 | Outpatient (CLI) | payer MEDICARE, SELFPAY ==
--- NOTE | 2025-01-02 16:17 | SP.MBSS_ITS ---
Modified Barium Swallow Patient Information Study Date: 01/02/25 Study Time: 13:00 Direct Billable Minutes: 73 Total Minutes procedure & reportin Diagnosis: Dysphagia R13.10 Referring Physician: Addi Mario Reason for Referral: Assess swallow function, assess risk for aspiration, and determine recommendations for least restrictive diet textures and dysphagia interventions. Medical History: PMH: Sore throat, Exposure to COVID-19 virus, Swallowing disorder, CHF, RA, HTN, A fib, Sepsis, Non-STEMI, Migraines, Restrictive airway disease, Asthma, Memory impairment, History of pneumonia, Orthostatic hypotension, Physical debility, HLD (See EMR for full PMH). The patient reports swallowing difficulty characterized by feeling as if he can't swallow. This issue began ~2-3 months ago. He reports his swallowing difficulty is very episodic, and it has not occurred for the past 3 weeks once he began taking smaller bites. His PCP referred him for MBSS to further assess swallowing difficulty. Current Diet Ordered: Regular textures / Thin liquids Dentition: Natural Teeth Mental Status: Impaired (Hx of memory impairment, did not impact participation in this exam) Respiratory Status: Oxygenating on Room Air Penetration-Aspiration Scale Penetration-Aspiration Scale: OBJECTIVE ASSESSMENT OF SWALLOW FUNCTION (QUANTITATIVE ? PER TRIAL): PENETRATION / ASPIRATION SCALE (TOLLIVER): 1 = does not enter airway 2 = enters airway/above vocal folds/ejected 3 = enters airway/above vocal folds/not ejected 4 = enters airway/contacts vocal folds/ejected 5 = enters airway/contacts vocal folds/not ejected 6 = enters airway/below vocal folds/ejected 7 = enters airway/below vocal folds/not ejected despite effort 8 = enters airway/below vocal folds/no effort VIDEOFLOROSCOPIC SCALE SCORE (TOLLIVER): Grade I = aspiration of material that has penetrated into the laryngeal vestibule, intact cough reflex Grade II = aspiration < 10 % of the bolus, intact cough reflex Grade III = aspiration of < 10 % of the bolus, reduced cough reflex or aspiration of > 10 % of the bolus, intact cough reflex Grade IV = aspiration of > 10 % of the bolus, reduced cough reflex Penetration-Aspiration Scale Score Thin Liquid via teaspoon: Result: 1= does not enter airway Thin Liquid via teaspoon Trial 2: Result: 1= does not enter airway Thin Liquid via large single sip: cup: Result: 1= does not enter airway [place] Thick Liquid via large single sip: cup: Result: 1= does not enter airway Thin Liquid via sequential sips: cup: Result: 1= does not enter airway Comment: Esophageal screen - Retention in the lower esophagus w/ minimal retrograde flow. Pudding via teaspoon: Result: 1= does not enter airway Comment: Esophageal screen - Retention in the lower esophagus w/ min retrograde flow to the middle esophagus. Thin Liquid via sequential sips:straw: Result: 1= does not enter airway Comment: Esophageal screen - Liquid barium wash mostly cleared barium through the esophagus. Minimal retention of liquid barium in the lower esophagus after the swallow. 1/2 Cookie: Result: 1= does not enter airway Comment: Esophageal screen - Retention in the lower esophagus w/ retrograde flow to the middle esophagus. Thin Liquid via single sip: straw: Result: 1= does not enter airway Comment: Esophageal screen - Liquid wash fully cleared cookie retention. Mild retention of liquid in lower esophagus. Oral Phase Labial Seal: No Labial Escape Tongue Control During Bolus Hold: Escape to lateral buccal cavity/floor of mouth (large sips) Bolus Preparation/Mastication: Timely and efficient chewing and mashing Bolus Transport/Lingual Motion: Delayed initiation of tongue motion Oral Residue: Trace residue lining oral structures Pharyngeal Phase Initiation of Pharyngeal Swallow: Bolus head in pyriforms Soft Palate Elevation: Trace column of contrast/air between soft palate and pharyngeal wall Laryngeal Elevation: Comp. Superior move thyroid cart w/comp. apprx arytenoid cart-epig pet Anterior Hyoid Excursion: Partial anterior movement Epiglottic Movement: Complete inversion Laryngeal Vestibule Closure at Height of Swallow: Complete; no air/contrast in laryngeal vestibule Pharyngeal Stripping Wave: Present - complete Pharyngoesophageal Segment Opening: Parital distension and partial duration; parital obstruction of flow Tongue Base Retraction: Narrow column of contrast between tongue base & post. pharyngeal wall Pharyngeal Residue: Trace residue within or on pharyngeal structures Esophageal Phase Esophageal Clearance: Esophageal retention w/ retrograde flow below pharyngoesophageal seg. Diagnosis/Impression Diagnosis: Mild pharyngoesohageal dysphagia R13.14 Impression: The oral phase is grossly WNL. Mild pharyngeal deficits, including... -Mild delay in swallow onset. -Mildly decreased TB retraction notable w/ certain liquid trials; however, complete pharyngeal stripping wave and only trace pharyngeal residue. -Mildly decreased anterior hyoid excursion; however, complete laryngeal elevation. No laryngeal penetration or aspiration. Mild esophageal deficits, including... -Retention of pudding and cookie in the middle esophagus w/ retrograde flow to the middle esophagus. Liquid wash was effective in clearing esophageal ret ention. -Trace retention of barium in UES. Recommendations Diet: Regular Textures and Thin Liquids Compensatory Strategies: Small Bites, Small Sips, Alternate bites/solids and sips/liquids (Take a sip after each bite), Sitting upright and Remain sitting upright for 30 minutes after PO intake Recommend Repeat Modified Barium Swallow: No Need for Skilled Speech Therapy Services: No Recommended Referrals: GI Consult (consider GI consult due to esophageal retention w/ retrograde flow) Education Completed: 1. Described result of evaluation. Status Active ST Patient: Active Contact Information [facility] Speech Therapy:: Jodee Miller M.A. CCC-EQUIPMENT COORDINATOR? Speech-Language Pathologist?? [facility] [address] [place] [address]? [email or web address]?? [phone]
== END | disposition home or self-care (01) ==
LOC: RAD 12:48
PROVIDERS: PCP Internal Medicine; Referring Provider Internal Medicine; Visit Provider Internal Medicine
DX: R13.10 Dysphagia, unspecified (principal)
CPT/HCPCS: 74230; 92611

== ENCOUNTER → 2025-02-14 | Outpatient (CLI) | payer MEDICARE, SELFPAY ==
[2025-02-14 17:04] LABS: Absolute Neutrophil Count 4.7 X10^3/uL (2.0-7.7); Basophil# 0.04 X10^3/uL; Basophil% 0.5 % (0-1); Eosinophil# 0.21 X10^3/uL; Eosinophils% 2.6 % (0-5); Hematocrit 37.3 % (40-54); Lymphocyte % 28.6 % (19-41); Mean Corp Hgb Conc 32.2 g/dL (32-36); Mean Corpuscular Hgb 31.4 pg (27.0-32.0); Mean Corpuscular Volume 97.6 fL (80-94); Mean Platelet Vol. 11.5 fl (6.2-12.0); Monocyte# 0.78 X10^3/uL; Monocyte% 9.7 % (0-10); NRBC Flagged by Analyzer 0 % (0-5); Neutrophil # 4.69 X10^3/uL (2.7-7.7); Neutrophil % 58.5 % (47-70); Platelet Count 153 K/mm3 (150-450); RBC Distribution Width CV 15.4 % (11.6-14.6); RBC Distribution Width SD 54.5 fl (35.1-43.9); Red Blood Count 3.82 M/mm3 (4.6-6.2)
[2025-02-14 17:15] LABS: AST(SGOT) 28 U/L (<=37); Alanine Aminotransfer ALT/SGPT 17 U/L (<=46); Albumin, Serum 3.9 g/dL (3.4-4.8); Alkaline Phosphatase 88 U/L (40-129); Anion Gap 10 (5-15); BUN 21 mg/dL (4-19); BUN/Creat Ratio 23.1 RATIO (10-20); Calcium,Total 9.8 mg/dL (7.6-11.0); Carbon Dioxide 27.8 mmol/L (21.0-32.0); Chloride 101 mmol/L (98-108); Creatinine, Serum 0.93 mg/dL (0.70-1.20); EST Glomerular Filtration Rate 80 (>60); Glucose 94 mg/dL (70-99); Magnesium 2.1 mg/dL (1.5-2.2); Protein, Total 7.8 g/dL (5.9-8.4); Sodium Level 138 mmol/L (133-145); Total Bilirubin 0.37 mg/dL (0.00-1.30)
[2025-02-15 09:14] LABS: Vitamin B12 425 pg/mL (180-914)
== END | disposition home or self-care (01) ==
LOC: BIMLAB 14:50
PROVIDERS: PCP Internal Medicine; Referring Provider Internal Medicine; Visit Provider Internal Medicine
DX: I48.0 Paroxysmal atrial fibrillation (principal); K21.9 Gastro-esophageal reflux disease without esophagitis
CPT/HCPCS: 36415; 80053; 82607; 83735; 84439; 84443; 85025

== ENCOUNTER → 2025-03-05 | Outpatient (CLI) | payer MEDICARE, SELFPAY | END | disposition home or self-care (01) | LOC: PSN 10:50 | PROVIDERS: PCP Internal Medicine; Referring Provider Nurse Practitioner Gerontology; Visit Provider Nurse Practitioner Gerontology | DX: I48.0 Paroxysmal atrial fibrillation (principal) | CPT/HCPCS: 93225; 93226 ==

== ENCOUNTER → 2025-03-07 | Outpatient (CLI) | payer MEDICARE, SELFPAY ==
[2025-03-07 16:30] LABS: Pro- Brain NATRIURETIC PEPTIDE 3513 pg/mL (<=1800)
[2025-03-07 16:31] LABS: Anion Gap 11 (5-15); BUN 17 mg/dL (4-19); BUN/Creat Ratio 18.4 RATIO (10-20); Calcium,Total 9.3 mg/dL (7.6-11.0); Carbon Dioxide 26.9 mmol/L (21.0-32.0); Chloride 103 mmol/L (98-108); Creatinine, Serum 0.94 mg/dL (0.70-1.20); EST Glomerular Filtration Rate 78 (>60); Glucose 79 mg/dL (70-99); Potassium 4.9 mmol/L (3.3-5.1); Sodium Level 140 mmol/L (133-145)
== END | disposition home or self-care (01) ==
LOC: LAB 13:34
PROVIDERS: PCP Internal Medicine; Referring Provider Nurse Practitioner Gerontology; Visit Provider Nurse Practitioner Gerontology
DX: R06.02 Shortness of breath (principal); R60.0 Localized edema
CPT/HCPCS: 36415; 80048; 83880

== ENCOUNTER 2025-03-10 16:05 | Emergency (ER) | payer MEDICARE, SELFPAY ==
[2025-03-10 16:06] VITALS: BP 128/76; PULSE 62; RESP 16; TEMP 36.2; O2SAT 99
--- NOTE | 2025-03-10 16:22 | EDS_ITS ---
HPI <BASSME Soria - Last Filed: 03/10/25 16:54> History of Present Illness Chief Complaint: Lower Extremity Injury Narrative Narrative: Patient resenting today with pain to his right foot after he was practicing balancing exercises Tuesday. He was standing on 1 foot while moving the opposite foot [id number]. He is not of the exact mechanism of injury but reports that after performing these exercises he started to have pain in the right foot. He is able to ambulate but it is painful. He denies any other injury. [facility] <BASSEM Soria - Last Filed: 03/10/25 16:54> [facility] Medical History Bradycardia Immunity status testing Sore throat Exposure to COVID-19 virus Swallowing disorder Perianal dermatitis CHF (congestive heart failure) Ureteral calculi Cardiomyopathy Mitral regurgitation Rheumatoid arthritis Non-smoker Hypertension Atrial fibrillation Migraines Sepsis Non-STEMI (non-ST elevated myocardial infarction) Paroxysmal atrial fibrillation Extensor tenosynovitis of right wrist Advanced directives, counseling/discussion Anemia Left facial swelling Aortic stenosis New onset atrial fibrillation Vitamin D deficiency Obesity Restrictive airway disease Asthma Dermatitis Memory impairment Right foot pain Dizziness History of skin cancer Liver disease History of pneumonia Rheumatoid arthritis Seasonal allergies Fracture of triquetrum of right wrist Fracture of triquetrum of left wrist Closed vertical fracture of left patella History of colon polyps Orthostatic hypotension Iron deficiency anemia Sinus bradycardia Glaucoma Physical debility Degenerative disc disease, cervical Hyponatremia Thrombocytopenia Multiple fractures Fall Anginal equivalent Nonrheumatic aortic valve stenosis Psoriasis Osteoarthritis BPH (benign prostatic hyperplasia) Essential hypertension Atherosclerosis of coronary artery of [place] 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 Instructions: Nosebleeds. cholecalciferol (vitamin D3) 50 50 mcg PO DAILY Supple ment 11/19/20 12/01/23 History mcg (2,000 unit) tablet Disability Placard #1 ea 12/01/21 Unknown Rx Arthritis Compound 1 click topical DAILY PRN Pa in #60 02/08/22 Unknown Rx CLICKS albuterol sulfate 90 mcg/actuation 2 puff inhalation Q 4H PRN Asthma 04/28/23 Unknown Rx aerosol inhaler (Ventolin HFA) #8.5 grams nebulizer and compressor (Portable #1 ea 04/30/23 Unkn own Rx Nebulizer System) [id number]-[id number] acid 0.4 1 tab PO DAILY supplement 12/02/23 12/01/23 History mg-lycopene 300 mcg-lutein 250 mcg tablet (Centrum Silver) netarsudil 0.02 %-latanoprost 1 drp ophthalmic (eye) Q HS Eye 12/02/23 12/02/23 History 0.005 % eye drops (Rocklatan) drops acetaminophen 500 mg tablet 1,000 mg (2 x 500 mg) PO Q 6H PRN 12/30/23 Unknown Rx PRN Pain Score 1-10 #0 tabs albuterol sulfate 2.5 mg/3 mL 2.5 mg (3 mL) inhalation Q4-6H PRN 01/04/24 Unknown Rx (0.083 %) solution for nebulization shortness of breat h or wheezing #90 mL hydrocortisone 2.5 % topical cream 1 applic NC BID-QID PRN 01/04/24 Unknown Rx with perineal applicator hemorrhoids #30 grams cetirizine 10 mg tablet 10 mg PO DAILY PRN 01/23/24 Unknown History sennosides 8.6 mg-docusate sodium 1 tab-cap PO QHS 03/12 Unknown History 50 mg tablet (Senokot-S) nitroglycerin 0.4 mg sublingual 0.4 mg sublingual Q5-1 5M PRN chest 05/01/24 Unknown Rx tablet pain #25 tabs finasteride 5 mg tablet 5 mg PO DAILY BPH #90 tabs 1 11/07/23 Unknown Rx famotidine 20 mg tablet 20 mg PO DAILY GERD #90 tabs 09/10/24 Unknown Rx atorvastatin 20 mg tablet 20 mg PO QHS cholesterol #90 tabs 10/22/24 Unknown Rx furosemide 20 mg tablet 20 mg PO QDAY #90 tabs 11/15 Unknown Rx potassium chloride 10 mEq 10 meq PO QDAY With Lasix #9 0 tabs 11/15/24 Unknown Rx tablet,extended release(part/cryst) brinzolamide 1 %-brimonidine 0.2 % 1 drp ophthalmic (e ye) 12/14/24 Unknown History eye drops,suspension (Simbrinza) budesonide-formoterol HFA 160 2 puff inhalation BID As thma #1 ea 12/14/24 Unknown Rx mcg-4.5 mcg/actuation aerosol inhaler (Symbicort) ferrous sulfate 325 mg (65 mg 325 mg PO QODAY Suppleme nt #90 tabs 02/05/25 Unknown Rx iron) tablet ursodiol 500 mg tablet 500 mg PO BID #180 tabs 01/18 06/13 Unknown Rx apixaban 5 mg tablet (Eliquis) 5 mg PO BID #60 tabs Unknown Rx Allergy/AdvReac Type Severity Reaction Status Date / Time metoprolol (From Lopressor) Allergy Intermediate Shortness Verified 03/10/25 16:06 of breath bee venom protein (honey Allergy Mild Swelling Verified 03/10/25 16:06 bee) (bee sting) Penicillins Allergy Rash Verified 03/10/25 16:06 Family History Father Hypertension Grandmother Hypertension Other Alcoholism Liver disease Surgical History History of coronary artery stent placement History of colon resection History of cataract extraction Presence of stent in coronary artery History of appendectomy History of partial colectomy (~2003) Social History household members: spouse Smoking Status: Never smoker alcohol intake: current alcohol intake frequency: holidays/special occasions only substance use type: does not use caffeine: No what type of physical activity do you participate in: weight training ROS <BASSEM Soria - Last Filed: 03/10/25 16:54> ROS ED Constitutional Constitutional ED: Denies chills or fever(s) Cardiovascular Cardiovascular: Denies chest pain Respiratory/Chest Respiratory/Chest: Denies dyspnea Gastrointestinal Gastrointestinal: Denies abdominal pain, nausea or vomiting Musculoskeletal Musculoskeletal: Reports arthralgias Integumentary Denies Abrasions Neurologic Neurologic: Denies paresthesias EXAM <BASSEM Soria - Last Filed: 03/10/25 16:54> Physical Exam Const Vital Signs: 03/10/25 16:06 03/10/25 17:13 Temperature 97.2 F L 97.9 F Temperature Source Temporal Pulse Rate 62 63 Respiratory Rate 16 16 Blood Pressure 128/76 H 128/76 H Blood Pressure Mean 93 93 Pulse Ox 99 97 Oxygen Delivery Method Room Air Positive well nourished, well developed and no apparent distress General Appearance ED: well developed HEENT Reports normocephalic and head/scalp atraumatic Mouth ED: Yes moist mucous membranes normal Eyes PERRL and EOMs intact bilaterally Neck full ROM and supple Chest Wall inspection of chest normal Resp normal respiratory effort and clear to auscultation bilaterally Cardio regular rate and regular rhythm GI soft to palpation, non-tender, non-distended and no masses Back/Spine normal ROM and normal to inspection Extremity normal to inspection and full ROM Extremity Narrative: Pain to palpation to the base of the fifth metatarsal, no overlying bruising. There is edema to the right foot in comparison with the left. No pain to the right lateral or medial malleolus, no proximal fibular tenderness. Right DP pulse 2+, good cap refill, sensation intact. Neuro moves all extremities, no focal motor deficits and no sensory deficits noted Sensorium / Orientation: awake and alert Psych mental status grossly normal and thought process normal Skin no rashes or lesions noted and no wounds <Dr. Rolan Peña DO - Last Filed: 03/10/25 17:19> Physical Exam Const Vital Signs: 03/10/25 16:06 03/10/25 17:13 Temperature 97.2 F L 97.9 F Temperature Source Temporal Pulse Rate 62 63 Respiratory Rate 16 16 Blood Pressure 128/76 H 128/76 H Blood Pressure Mean 93 93 Pulse Ox 99 97 Oxygen Delivery Method Room Air [facility] <BASSEM Soria - Last Filed: 03/10/25 16:54> [facility] Narrative Medical decision making narrative: Patient presenting today with right foot pain and swelling that has been ongoing since Tuesday after he was performing 1 leg balancing exercises Tuesday. He has point tenderness to the base of the fifth metatarsal, x-ray of the foot will be obtained to assess for fracture. He is otherwise neurovascularly intact, no signs of infection on exam. I did offer analgesia and he declined. X-ray is negative for fracture, he has diffuse osteopenia and soft tissue swelling. He will be given a postop shoe. Recommended he follow-up with his PCP in 1 week if no improvement of his pain. RICE instructions discussed. He will be discharged home in stable condition. Radiography Diagnostic Testing: Clinical Impression(s) from Imaging Studies Foot X-Ray 03/10/25 16:25 IMPRESSION: Mild diffuse osteopenia. Scattered moderate degenerative changes predominantly about the intertarsal joint spaces. No acute fracture or dislocations. No radiographic foreign body. No acute soft tissue abnormalities. Minimal diffuse soft tissue swelling. Consider dedicated ankle radiograph if there is concern for ankle pathology. Reading Location: [id number] <Dr. Rolan Peña, DO - Last Filed: 03/10/25 17:19> MDM Radiography Diagnostic Testing: Clinical Impression(s) from Imaging Studies Foot X-Ray 03/10/25 16:25 IMPRESSION: Mild diffuse osteopenia. Scattered moderate degenerative changes predominantly about the intertarsal joint spaces. No acute fracture or dislocations. No radiographic foreign body. No acute soft tissue abnormalities. Minimal diffuse soft tissue swelling. Consider dedicated ankle radiograph if there is concern for ankle pathology. Reading Location: [facility] Treatment and Re-Evaluation Narrative: Attending note: I have personally performed a face to face assessment of the patient and have reviewed the RADHA note. I personally made/approved the management plan and take responsibility for the patient management. I performed a substantive portion of the visit including all aspects of the following. My villalobos findings include: Pain right foot after doing balance exercises 2 days ago. He is done this before. No direct falls or injuries. Using Tylenol. No other injuries. Exam tenderness proximal fifth base of right foot. No deformity skin intact. Forced inversion of the foot did not worsen the pain. Three-view x-ray right foot interpreted myself and read by radiology negative for fractures p atient placed in a postop shoe. He will continue Tylenol. He will avoid. His balance exercise at this time until symptoms improved. All questions were answered. Discharge Plan Triage Chief Complaint: Lower Extremity Injury ED Midlevel Provider: Marisol Crum ED Provider: Roaln Peña Dx/Rx/DC Orders Clinical Impression: Right foot pain, Injury of foot, right Instructions: ED RICE Prescriptions: No Action cholecalciferol (vitamin D3) 50 mcg (2,000 unit) tablet 50 mcg PO DAILY albuterol sulfate [Ventolin HFA] 90 mcg/actuation HFA aerosol inhaler 2 puff INHALATION Q4H PRN (Reason: Asthma) Qty: 8.5 2RF cetirizine 10 mg tablet 10 mg PO DAILY PRN sennosides-docusate sodium [Senokot-S] 8.6-50 mg tablet 1 tab-cap PO QHS albuterol sulfate 2.5 mg /3 mL (0.083 %) solution for nebulization 2.5 mg inhalation Q4-6H PRN (Reason: shortness of breath or wheezing) Qty: 90 3RF hydrocortisone 2.5 % cream with perineal applicator 1 applic NC BID-QID PRN (Reason: hemorrhoids) Qty: 30 1RF Simbrinza 1-0.2 % drops,suspension 1 drp ophthalmic (eye) budesonide-formoterol [Symbicort] 160-4.5 mcg/actuation HFA aerosol inhaler 2 puff inhalation BID Qty: 1 11RF Rx Instructions: administer with spacer, rinse mouth after each use furosemide 20 mg tablet 20 mg PO QDAY Qty: 90 3RF potassium chloride 10 mEq tablet,ER particles/crystals 10 meq PO QDAY Qty: 90 3RF ursodiol 500 mg tablet 500 mg PO BID Qty: 180 1RF aspirin 81 MG tablet 81 mg PO DAILY@0800 Centrum Silver 0.4 mg-300 mcg- 250 mcg tablet 1 tab PO DAILY Rocklatan 0.02-0.005 % drops 1 drp ophthalmic (eye) QHS Rx Instructions: INSTILL 1 DROP INTO EACH EYE AT BEDTIME acetaminophen 500 mg Tablet 1,000 mg PO Q6H PRN PRN (Reason: Pain Score 1-10) Qty: 0 0RF (DME) Disability Placard See Rx Instructions .Route .MEDSUPPLY Qty: 1 0RF Rx Instructions: Expires 12/01/2026 Arthritis Compound 1 click TOPICAL DAILY PRN (Reason: Pain) Qty: 60 1RF Rx Instructions: Diclofenac 3%, Lidocaine 3%, Baclofen 2% 1 click=o.25g 1 click topical daily 60 click tube (DME) nebulizer and compressor [Portable Nebulizer System] Device See Rx Instructions .Route Qty: 1 0RF Rx Instructions: As directed nitroglycerin 0.4 mg tablet, sublingual 0.4 mg SUBLINGUAL Q5-15M PRN (Reason: chest pain) Qty: 25 3RF finasteride 5 mg tablet 5 mg PO DAILY Qty: 90 3RF famotidine 20 mg tablet 20 mg PO DAILY Qty: 90 3RF atorvastatin 20 mg tablet 20 mg PO QHS Qty: 90 3RF ferrous sulfate 325 mg (65 mg iron) tablet 325 mg PO QODAY Qty: 90 2RF Eliquis 5 mg tablet 5 mg PO BID Qty: 60 11RF Primary Care Provider: Addi Mario Referrals: Addi Mario MD [Primary Care Provider] - 1 Week Activity Restrictions/Additional Instructions: Follow-up with your PCP in 1 week if no improvement of your pain, ice the area, elevate to help with swelling, return for any other concerns. Take Tylenol as needed for your pain. Print Language: Yoruba Disposition Disposition: Home, Self Care
[2025-03-10 16:23] VITALS: BMI 30.9
--- NOTE | 2025-03-10 16:25 | RAD_ITS ---
PROCEDURE: FOOT MIN 3 VIEWS 03/10/2025 REASON FOR EXAM: PAIN TECHNIQUE: FOOT MIN 3 VIEWS COMPARISON: 10/15/2019 RAD/Foot min 3 Views IMPRESSION: Mild diffuse osteopenia. Scattered moderate degenerative changes predominantly about the intertarsal joint spaces. No acute fracture or dislocations. No radiographic foreign body. No acute sof t tissue abnormalities. Minimal diffuse soft tissue swelling. Consider dedicated ankle radiograph if there is concern for ankle pathology. Reading Location: [id number]
--- OUTSIDE RECORDS SUMMARY | 2025-03-10 16:54 | XMS RPT_ITS | CCD ---
Author Organization [facility] Care Team Providers Care Machine Folder Name Role Phone Dr. Addi Mario Primary Care Provider [phone] Dr. Woody Montana Referring Provider [phone] Dr. Woody Montana Other Provider Dr. Valentín Krause Attending Provider Dr. Addi Mario Referring Provider [phone] Dr. Woody Montana Attending Provider [phone] Dr. Quentin Beltran Attending Provider [phone] Dr. Addi Mario Attending Provider [phone] Zachary WOODARD, HUAN Parisi Attending Provider Dr. Jeff Carrero Attending Provider Dr. John Cool Attending Provider Csa LUEVANO, [place] Ava Daniels Attending Provider Dr. Addi Mario Primary Care Provider [phone] Tristan Montana MD Unavailable Manuel Logan MD Primary Care Provider Dr. Addi Mario Primary Care Provider [phone] Dr. Addi Mario Referring Provider [phone] Dr. Quentin Beltran Attending Provider [phone] Dr. Addi Mario Attending Provider [phone] Dr. Addi Mario Primary Care Provider [phone] Dr. Addi Mario Referring Provider [phone] BASSEM Mireles Attending Provider Unavail le Dr. John Cool Attending Provider Dr. Addi Mario Primary Care Provider [phone] Dr. Addi Mario Referring Provider [phone] Dr. John Cool Attending Provider [phone] Zachary CULINARY INTERNSHIP, CULINARY INTERNSHIP-C Ailin Attending Provider [phone] Dr. Addi Mario Attending Provider [phone] Shelbi, Dr. Fontana Primary Care Provider [phone] Shelbi, Dr. Fontana Referring Provider [phone] MD Manuel Gardner Attending Provider [phone] BASSEM Mederos Attending Provider Dr. Addi Mario Primary Care Provider [phone] Dr. Addi Mario Referring Provider [phone] Dr. Addi Mario Attending Provider [phone] Nan FREDERICK, Nagapradeep Unavailable Manuel Logan MD Primary Care Provider Nan FREDERICK, Nagapradeep Unavailable Dr. Addi Mario Primary Care Provider [phone] Dr. Addi Mario Attending Provider [phone] Dr. Addi Mario Referring Provider [phone] Dr. Dash Schmidt Attending Provider Dr. Antonio James Emergency Provider Dr. Miguelito Laguna Admit Provider Dr. Miguelito Laguna Attending Provider Dr. Miguelito Laguna Other Provider Troy, Dr. Mendez Other Provider Troy, Dr. Mendez Attending Provider Koram, Dr. Klaudia Perry Other Provider Koryael, Dr. Klaudia Perry Attending Provider Jesus, Dr. Darien Akhtar Other Provider Dr. Addi Mario Primary Care Provider Dr. Addi Mario Referring Provider Tono WOODARD, CULINARY INTERNSHIP-Elza Rhodes Attending Provider Desmond FREDERICK, Manuel Chang Primary Care Provider [phone] Shelbi FREDERICK, Dr. Fontana Primary Care Provider Shelbi FREDERICK, Dr. Fontana Referring Provider [phone] Souleymane Curiel Attending Provider Shelbi FREDERICK, Dr. Fontana Attending Provider [phone] Ava Mederos Attending Provider Shelbi FREDERICK, Dr. Fontana Primary Care Provider Shelbi FREDERICK, Dr. Fontana Referring Provider [phone] Shelbi FREDERICK, Dr. Fontana Attending Provider [phone] Ailin Hernandez Attending Provider SHAWN SHEA Attending Unavailable MANUEL LOGAN Primary Care Unavailable MANUEL LOGAN Primary Care Unavailable SHAWN SHEA Attending Unavailable MANUEL LOGAN Primary Care Unavailable SHAWN SHEA Attending Unavailable MANUEL LOGAN Primary Care Unavailable PRIYA SALEH Attending Unavailable MANUEL LOGAN Primary Care Unavailable SHAWN SHEA Attending Unavailable Gretchen Fisher Attending Provider Addi Mario Referring Unavailable Oleghe, Efewongbe Attending Unavailable Oleghe, Efewongbe Primary Care Unavailable Ava Mederos Attending Unavail able Ava Mederos Referring Unavail able Oleghe, Efewongbe Primary Care Unavailable Oleghe, Efewongbe Referring Unavailable Oleghe, Efewongbe Attending Unavailable Oleghe, Efewongbe Primary Care Unavailable Dash Schmidt Attending Unavailable Oleghe, Efewongbe Primary Care Unavailable Oleghe, Efewongbe Attending Unavailable Oleghe, Efewongbe Referring Unavailable Oleghe, Efewongbe Primary Care Unavailable Oleghe, Efewongbe Referring Unavailable Oleghe, Efewongbe Primary Care Unavailable Ava Mederos Attending Unavail able Ailin Sharma NP Attending Unavailable Oleghe, Efewongbe Referring Unavailable Oleghe, Efewongbe Primary Care Unavailable Oleghe, Efewongbe Referring Unavailable Ava Mederos Attending Unavail able Oleghe, Efewongbe Primary Care Unavailable Oleghe, Efewongbe Attending Unavailable Oleghe, Efewongbe Referring Unavailable Oleghe, Efewongbe Primary Care Unavailable Oleghe, Efewongbe Referring Unavailable Oleghe, Efewongbe Attending Unavailable Oleghe, Efewongbe Primary Care Unavailable Zachary CULINARY INTERNSHIPAilin Referring Unavailable Ailin Sharma NP Attending Unavailable Oleghe, Efewongbe Primary Care Unavailable Oleghe, Efewongbe Attending Unavailable Oleghe, Efewongbe Referring Unavailable Oleghe, Efewongbe Primary Care Unavailable Rolan Peña Attending Unavailable Oleghe, Efewongbe Primary Care Unavailable Gretchen Nguyen Attending Unavailable Gretchen Nguyen Referring Unavailable Oleghe, Efewongbe Primary Care Unavailable Oleghe, Efewongbe Attending Unavailable Oleghe, Efewongbe Referring Unavailable Oleghe, Efewongbe Primary Care Unavailable Oleghe, Efewongbe Referring Unavailable Oleghe, Efewongbe Attending Unavailable Oleghe, Efewongbe Primary Care Unavailable Oleghe, Efewongbe Referring Unavailable Gretchen Nguyen Attending Unavailable Oleghe, Efewongbe Primary Care Unavailable Gretchen Nguyen Attending Unavailable Gretchen Nguyen Referring Unavailable Oleghe, Efewongbe Primary Care Unavailable Zachary CULINARY INTERNSHIP, Ailin Referring Unavailable Zachary CULINARY INTERNSHIP, Ailin Attending Unavailable Oleghe, Efewongbe Primary Care Unavailable Oleghe, Efewongbe Referring Unavailable Oleghe, Efewongbe Attending Unavailable Oleghe, Efewongbe Primary Care Unavailable Oleghe, Efewongbe Referring Unavailable Oleghe, Efewongbe Attending Unavailable Oleghe, Efewongbe Primary Care Unavailable Oleghe, Efewongbe Primary Care Unavailable Oleghe, Efewongbe Attending Unavailable Oleghe, Efewongbe Referring Unavailable Oleghe, Efewongbe Referring Unavailable Oleghe, Efewongbe Primary Care Unavailable Zachary CULINARY INTERNSHIP, Ailin Attending Unavailable Souleymane Curiel Attending Unavailable Oleghe, Efewongbe Referring Unavailable Oleghe, Efewongbe Primary Care Unavailable Quentin Beltran Attending Unavailable Quentin Beltran Attending Unavailable Quentin Beltran Attending Unavailable Zachary CULINARY INTERNSHIP, Ailin Referring Unavailable Zachary CULINARY INTERNSHIP, Ailin Consulting Unavailable Oleghe, Efewongbe Primary Care Unavailable Zachary CULINARY INTERNSHIP, Ailin Attending Unavailable Oleghe, Efewongbe Referring Unavailable Oleghe, Efewongbe Primary Care Unavailable Allergies Allergy Classification Reported Allergen(s) Allergy Type Date of Onset Reaction(s) Facility amLODIPine (1 source) amLODIPine Drug Allergy 6 Other: See Comments [facility] HMG-CoA Reductase Inhibitors (statins) (1 source) atorvastatin Drug Allergy 1 Intolerance [facility] Metoprolol (1 source) Metoprolol Drug Allergy 4 Unknown [facility] Mold Extract (1 source) Mold Extract Drug Allergy 7 [facility] Penicillins (antibiotic) (1 source) Penicillins Drug Allergy 0 [facility] Work Phone: (20 sources) Metoprolol; 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: [METOPROLOL] Drug Allergy 2 Unknown [facility] (20 sources) Penicillins; 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: [PENICILLINS] Allergy to substance 0 [facility] Work Phone: (16 sources) amLODIPine; 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: [AMLODIPINE] Drug Allergy 6 Other: See Comments [facility] (16 sources) atorvastatin; 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: [ATORVASTATIN CALCIUM] Drug Allergy 1 Intolerance [facility] (16 sources) Mold Extract; 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: [MOLD] Drug Allergy 7 [facility] (16 sources) long haired dogs and cats [Other] Propensity to adverse reactions 7 [facility] (13 sources) beta-Blocking agent; 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: [BETA-BLOCKERS (BETA-ADRENERGIC BLOCKING AGTS)] Drug Allergy 0 Other: See Comments, Shortness of Breath [facility] (6 sources) bee venom protein (honey bee) Allergy to substance 5 Swelling [facility] (1 source) OTHER; 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: [OTHER] Propensity to adverse reactions (disorder) 7 [facility] (1 source) Metoprolol Drug Allergy 5 [facility] (1 source) bee venom protein (honey bee) Drug allergy (disorder) 5 [facility] Medications Current Medications Medication Drug Class(es) Dates Sig (Normalized) Sig (Original) acetaminophen 500 mg oral tablet (20 sources) Start: 12-30-2023 take 2 tablets by mouth every six hours as needed for pain Acetaminophen 500 mg Tablet Active 1000 mg PO EVERY 6 HOURS NEEDED as needed for Pain Score 1-10 0 December 30, 2023 12:00am Start: 12-30-2023 take 1000 mg by mout h every six hours as needed Acetaminophen Active 1000 MG PO EVERY 6 HOURS NEEDED 0 December 30, 2023 12:00am Start: 06-09-2020 End: 12-02-2023 Acetaminophen 325 MG tablet Discontinued 650 mg PO EVERY 6 HOURS NEEDED as needed for Pain Score 1-10/Temp > 100.7 F June 09, 2020 12:00am December 02, 2023 3:06pm Start: 06-09-2020 End: 12-02-2023 take 650 mg by mouth every six hours as needed Acetaminophen Discontinued 650 MG PO EVERY 6 HOURS NEEDED June 09, 2020 12:00am December 02, 2023 3:06pm Albuterol Sulfate 2.5 mg /3 mL (0.083 %) solution for nebulization (6 sources) Start: 01-04-2024 take 2.5 mg by inhalation every four to six hours as needed for wheezing Albuterol Sulfate 2.5 mg /3 mL (0.083 %) solution for nebulization Active 2.5 mg INHALATION EVERY 4-6 HOURS as needed for shortness of breath or wheezing 90 January 04, 2024 12:00am Arthritis Compound (20 sources) Start: 02-08-2022 Arthritis Comp ound Active 1 NMA TOPICAL DAILY as needed for Pain 60 February 08, 2022 2:15pm Diclofenac 3%, Lidocaine 3%, Baclofen 2% 1 click=o.25g 1 click topical daily 60 click tube Start: 02-08-2022 Arthritis Comp ound Active 1 CLICK TOPICAL DAILY 60 February 08, 2022 2:15pm Diclofenac 3%, Lidocaine 3%, Baclofen 2% 1 click=o.25g 1 click topical daily 60 click tube Start: 02-08-2022 Arthritis Comp ound Active 1 CLICK TOPICAL DAILY 60 February 08, 2022 1:15pm Diclofenac 3%, Lidocaine 3%, Baclofen 2% 1 click=o.25g 1 click topical daily 60 click tube Start: 02-03-2021 End: 02-08-2022 Arthritis Compound Discontin ued TOPICAL as needed for Pain February 03, 2021 2:04pm February 08, 2022 2:16pm Diclofenac 3%, Lidocaine 3%, Baclofen 2% 1 click=o.25g 1 click topical daily 60 click tube Start: 02-03-2021 End: 02-08-2022 Arthritis Compound Discontin ued TOPICAL February 03, 2021 2:04pm February 08, 2022 2:16pm Diclofenac 3%, Lidocaine 3%, Baclofen 2% 1 click=o.25g 1 click topical daily 60 click tube Start: 02-03-2021 End: 02-08-2022 Arthritis Compound Discontin ued TOPICAL February 03, 2021 1:04pm February 08, 2022 1:16pm Diclofenac 3%, Lidocaine 3%, Baclofen 2% 1 click=o.25g 1 click topical daily 60 click tube Start: 02-03-2021 Arthritis Comp ound Active TOPICAL February 03, 2021 2:04pm Diclofenac 3%, Lidocaine 3%, Baclofen 2% 1 click=o.25g 1 click topical daily 60 click tube Start: 08-06-2020 End: 02-03-2021 Arthritis Compound Discontin ued TOPICAL August 06, 2020 5:32pm February 03, 2021 2:04pm Diclofenac 3%, Lidocaine 3%, Baclofen 2% 1 click=o.25g 1 click topical daily 60 click tube Start: 08-06-2020 End: 02-03-2021 Arthritis Compound Discontin ued TOPICAL August 06, 2020 1:00am February 03, 2021 2:04pm Diclofenac 3%, Lidocaine 3%, Baclofen 2% 1 click=o.25g 1 click topical daily 60 click tube Start: 08-06-2020 End: 02-03-2021 Arthritis Compound Discontin ued TOPICAL August 06, 2020 12:00am February 03, 2021 1:04pm Diclofenac 3%, Lidocaine 3%, Baclofen 2% 1 click=o.25g 1 click topical daily 60 click tube aspirin 81 mg delayed release oral tablet (20 sources) Platelet Aggregation Inhibitor, Nonsteroidal Anti-inflammatory Drug Start: 12-06-2016 take 1 tablet by mouth once daily Aspirin 81 MG tablet Active 81 mg PO DAILY@0800 December 06, 2016 12:00am Start: 11-21-2006 ASPIRIN 81 MG TAB Take one(1) tablet daily. 0 11/21/2006 Active Comment on above: Take one(1) tablet d aily. benoxinate hydrochloride 4 mg/ml / fluorescein sodium 3 mg/ml ophthalmic solution (8 sources) Diagnostic Dye Start: 01-14-2025 End: 01-15-2025 fluorescein-benoxi bruce 0.3-0.4 % 1 drop (FLURESS) Start: 11-26-2024 End: 11-27-2024 fluorescein-benoxinate 0.3-0 .4 % 1 Drop (FLURESS) Start: 11-26-2024 End: 11-27-2024 1 Drop, BOTH EYES, DIRECT ED, Starting on Tue11/26/24 at 1330, Until Tue11/27/24 at 0129, Administer for applanation tonometry. In the event of a Fluress shortage, administer 1 drop of Christel-Fluor into both eyes as directed for applanation tonometry., OPHT CLINIC MED ORDERS Start: 07-30-2024 End: 07-31-2024 fluorescein-benoxinate 0.3-0 .4 % 1 Drop (FLURESS) Start: 07-30-2024 End: 07-31-2024 1 Drop, BOTH EYES, DIRECT ED, Starting on Tue07/30/24 at 1330, Until Tue07/31/24 at 0129, Administer for applanation tonometry. In the event of a Fluress shortage, administer Christel-Fluor 1 drop into both eyes as directed for applanation tonometry, OPHT CLINIC MED ORDERS Start: 03-12-2024 End: 03-13-2024 fluorescein-benoxinate 0.3-0 .4 % 1 Drop (FLURESS) Start: 11-07-2023 End: 11-08-2023 fluorescein-benoxinate 0.3-0 .4 % 1 Drop (FLURESS) Start: 07-04-2023 End: 07-05-2023 fluorescein-benoxinate 0.25- 0.4 % 1 Drop (FLURESS) brimonidine tartrate 2 mg/ml / brinzolamide 10 mg/ml ophthalmic suspension (8 sources) Carbonic Anhydrase Inhibitor, alpha-Adrenergic Agonist Start: 12-14-2024 Brinzolamide-Brimonidine (Simbrinza) 1-0.2 % drops,suspension Active 1 NMA OPHTHALMIC December 14, 2024 12:00am Start: 11-26-2024 take 1 drop(s) into the eye(s) twice daily brinzolamide-brimonidine (SIMBRINZA) 1%-0.2 % Ophth Susp Use 1 Drop in both eyes two times a day. 30 mL 5 11/26/2024 Active Budesonide-Formoterol (20 sources) Corticosteroid, beta2-Adrenergic Agonist Start: 12-14-2024 Budesonide-Formoterol (Symbicort) 160-4.5 mcg/actuation HFA aerosol inhaler Active 2 NMA INHALATION TWICE A DAY December 14, 2024 1:44pm administer with spacer, rinse mouth after each use Start: 08-02-2024 End: 12-14-2024 Budesonide-Formoterol (Symbi trish) 160-4.5 mcg/actuation HFA aerosol inhaler Discontinued 2 NMA INHALATION TWICE A DAY August 02, 2024 3:13pm December 14, 2024 1:45pm administer with spacer, rinse mouth after each use Start: 08-02-2024 Budesonide-For moterol (Symbicort) 160-4.5 mcg/actuation HFA aerosol inhaler Active 2 NMA INHALATION TWICE A DAY 1 August 02, 2024 3:13pm administer with spacer, rinse mouth after each use Start: 05-29-2024 End: 08-02-2024 Budesonide-Formoterol (Symbi trish) 160-4.5 mcg/actuation HFA aerosol inhaler Discontinued 2 NMA INHALATION TWICE A DAY 1 May 29, 2024 3:49pm August 02, 2024 3:14pm administer with spacer, rinse mouth after each use Start: 05-29-2024 End: 05-29-2024 Budesonide-Formoterol (Symbi trish) 160-4.5 mcg/actuation HFA aerosol inhaler Discontinued 2 NMA INHALATION TWICE A DAY 1 May 29, 2024 10:31am May 29, 2024 3:49pm administer with spacer, rinse mouth after each use Start: 08-15-2023 End: 05-29-2024 Budesonide-Formoterol (Symbi trish) 160-4.5 mcg/actuation HFA aerosol inhaler Discontinued 2 NMA INHALATION TWICE A DAY August 15, 2023 3:45pm May 29, 2024 10:32am administer with spacer, rinse mouth after each use Start: 08-15-2023 take 1 puff(s) by mo uth twice daily Budesonide-Formoterol (Symbicort) 160-4. 5 mcg/actuation HFA aerosol inhaler Active 2 PUFF INHALATION TWICE A DAY August 15, 2023 3:45pm administer with spacer, rinse mouth after each use Start: 05-02-2023 End: 08-15-2023 Budesonide-Formoterol (Symbi trish) 160-4.5 mcg/actuation HFA aerosol inhaler Discontinued 2 NMA INHALATION DAILY 3 May 02, 2023 5:56pm August 15, 2023 3:47pm administer with spacer, rinse mouth after each use Start: 05-02-2023 End: 08-15-2023 take 1 puff(s) by mouth once daily Budesonide-Formoterol (Symbicort) 160-4. 5 mcg/actuation HFA aerosol inhaler Discontinued 2 PUFF INHALATION DAILY 3 May 02, 2023 5:56pm November 27th, 2023 3:47pm administer with spacer, rinse mouth after each use Start: 05-02-2023 take 1 puff(s) by mo [facility] once daily Budesonide-Formoterol (Symbicort) 160-4. 5 mcg/actuation HFA aerosol inhaler Active 2 PUFF INHALATION DAILY May 02, 2023 5:56pm administer with spacer, rinse mouth after each use Start: 08-04-2022 End: 05-02-2023 Budesonide-Formoterol (Symbi trish) 160-4.5 mcg/actuation HFA aerosol inhaler Discontinued 2 NMA INHALATION DAILY August 04, 2022 3:03pm May 02, 2023 5:56pm administer with spacer, rinse mouth after each use Start: 08-04-2022 End: 05-02-2023 take 1 puff(s) by mouth once daily Budesonide-Formoterol (Symbicort) 160-4. 5 mcg/actuation HFA aerosol inhaler Discontinued 2 PUFF INHALATION DAILY August 04, 2022 3:03pm May 02, 2023 5:56pm administer with spacer, rinse mouth after each use Start: 08-04-2022 take 1 puff(s) by [facility] once daily Budesonide-Formoterol (Symbicort) 160-4. 5 mcg/actuation HFA aerosol inhaler Active 2 PUFF INHALATION DAILY August 04, 2022 3:03pm administer with spacer, rinse mouth after each use Start: 08-04-2022 take 1 puff(s) by [facility] once daily Budesonide-Formoterol (Symbicort) 160-4. 5 mcg/actuation HFA aerosol inhaler Active 2 PUFF INHALATION DAILY August 04, 2022 2:03pm administer with spacer, rinse mouth after each use Start: 03-26-2022 End: 08-04-2022 Budesonide-Formoterol (Symbi trish) 160-4.5 mcg/actuation HFA aerosol inhaler Discontinued 2 NMA INHALATION TWICE A DAY March 26, 2022 8:23am August 04, 2022 3:03pm administer with spacer, rinse mouth after each use Start: 03-26-2022 End: 08-04-2022 take 1 puff(s) by mouth twice daily Budesonide-Formoterol (Symbicort) 160-4. 5 mcg/actuation HFA aerosol inhaler Discontinued 2 PUFF INHALATION TWICE A DAY 1 March 26, 2022 8:23am August 04, 2022 3:03pm administer with spacer, rinse mouth after each use Start: 03-26-2022 End: 08-04-2022 take 1 puff(s) by mouth twice daily Budesonide-Formoterol (Symbicort) 160-4. 5 mcg/actuation HFA aerosol inhaler Discontinued 2 PUFF INHALATION TWICE A DAY 1 March 26, 2022 7:23am August 04, 2022 2:03pm administer with spacer, rinse mouth after each use Start: 11-25-2021 take 1 puff(s) by [facility] twice daily Budesonide-Formoterol (Symbicort) 160-4. 5 mcg/actuation HFA aerosol inhaler Active 2 PUFF INHALATION TWICE A DAY November 25, 2021 9:47am administer with spacer, rinse mouth after each use Start: 11-25-2021 End: 03-26-2022 Budesonide-Formoterol (Symbi trish) 160-4.5 mcg/actuation HFA aerosol inhaler Discontinued 2 NMA INHALATION TWICE A DAY 1 November 25, 2021 1:00am March 26, 2022 8:23am administer with spacer, rinse mouth after each use Start: 11-25-2021 End: 03-26-2022 take 1 puff(s) by mouth twice daily Budesonide-Formoterol (Symbicort) 160-4. 5 mcg/actuation HFA aerosol inhaler Discontinued 2 PUFF INHALATION TWICE A DAY 1 November 25, 2021 1:00am March 26, 2022 8:23am administer with spacer, rinse mouth after each use Start: 11-25-2021 End: 03-26-2022 take 1 puff(s) by mouth twice daily Budesonide-Formoterol (Symbicort) 160-4. 5 mcg/actuation HFA aerosol inhaler Discontinued 2 PUFF INHALATION TWICE A DAY November 25, 2021 12:00am March 26, 2022 7:23am administer with spacer, rinse mouth after each use Start: 11-23-2021 End: 11-25-2021 take 1 puff(s) by mouth twice daily Budesonide-Formoterol (Symbicort) 160-4. 5 mcg/actuation HFA aerosol inhaler Discontinued 2 PUFF INHALATION TWICE A DAY 1 November 23, 2021 5:20pm November 25, 2021 9:47am administer with spacer, rinse mouth after each use Start: 11-23-2021 End: 11-25-2021 Budesonide-Formoterol (Symbi trish) 160-4.5 mcg/actuation HFA aerosol inhaler Discontinued 2 NMA INHALATION TWICE A DAY 1 November 23, 2021 1:00am November 25, 2021 9:47am administer with spacer, rinse mouth after each use Start: 11-23-2021 End: 11-25-2021 take 1 puff(s) by mouth twice daily Budesonide-Formoterol (Symbicort) 160-4. 5 mcg/actuation HFA aerosol inhaler Discontinued 2 PUFF INHALATION TWICE A DAY 1 November 23, 2021 1:00am November 25, 2021 9:47am administer with spacer, rinse mouth after each use Start: 11-23-2021 End: 11-25-2021 take 1 puff(s) by mouth twice daily Budesonide-Formoterol (Symbicort) 160-4. 5 mcg/actuation HFA aerosol inhaler Discontinued 2 PUFF INHALATION TWICE A DAY November 23, 2021 12:00am November 25, 2021 8:47am administer with spacer, rinse mouth after each use take 2 puff(s) by mo ut once daily budesonide-formoterol (SYMBICORT) 160-4. 5 mcg/actuation inhaler inhale 2 puffs by mouth once daily Active take 2 puff(s) by mo uth once daily budesonide-formoterol (SYMBICORT) 160-4. 5 mcg/actuation inhaler inhale 2 puffs by mouth once daily 0 Active Comment on above: inhale 2 puffs by mo uth once daily cholecalciferol 0.05 mg oral tablet (20 sources) Vitamin D Start: 11-20-19 take 1 tablet by mouth once daily Cholecalciferol (Vitamin D3) 50 mcg (2,000 unit) tablet Active 50 ug PO DAILY November 19, 2020 1:00am Disability Placard (20 sources) Start: 12-02-19 Disability Placard Active 0 .Route .MEDSUPPLY December 01, 2021 11:10am Expires 12/01/2026 Start: 12-01-2021 Disability Alirio card Active 0 .Route .MEDSUPPLY December 01, 2021 12:00am Expires 12/01/2026 Start: 12-01-2021 Disability Alirio card Active 0 .Route .MEDSUPPLY November 30, 2021 11:00pm Expires 12/01/2026 docusate sodium 50 mg / sennosides, alf 8.6 mg oral tablet (20 sources) Start: 01-23-2024 Sennosides-Doc usate Sodium (Senokot-S) 8.6-50 mg tablet Active 1 NMA PO AT BEDTIME January 23, 2024 12:00am Start: 06-09-2020 End: 08-05-2020 Sennosides-Docusate Sodium 1 TABLET tablet Discontinued 2 {tbl} PO TWICE DAILY NEEDED as needed for Constipation June 09, 2020 12:00am August 05, 2020 3:27pm Start: 06-09-2020 End: 08-05-2020 take 2 tablets by mouth twice daily as needed Sennosides-Docusate Sodium Discontinued 2 TABLET PO TWICE DAILY NEEDED June 09, 2020 12:00am August 05, 2020 3:27pm furosemide 20 mg oral tablet (20 sources) Loop Diuretic Start: 10-23-2024 End: 11-15-2024 take 1 tablet by mouth once daily Furosemide 20 mg tablet Active 20 mg PO daily November 15, 2024 4:31pm Start: 12-08-2023 End: 10-23-2024 take 1 tablet by mouth once daily Furosemide 40 mg tablet Discontinued 40 mg PO daily August 28, 2024 1:53pm October 23, 2024 3:31pm hydrocortisone 25 mg/ml topical cream (20 sources) Corticosteroid Start: 01-04-2024 Hydrocortisone 2.5 % cream with perineal applicator Active 1 NMA RC 2 to 4 times per day as needed for hemorrhoids January 04, 2024 12:00am Start: 10-16-2013 hydrocortisone 2.5 % cream Apply 1 application to affected area twice daily. 80 g 5 10/16/2013 Active Comment on above: Apply 1 application to affected area twice daily. ibuprofen 200 mg oral tablet (16 sources) Nonsteroidal Anti-inflammatory Drug Start: take 1 tablet by mouth twice daily for pain ibuprofen (MOTRIN) 200 mg tablet Indications: Chronic midline low back pain with sciatica, sciatica laterality unspecified Take 1 tablet by mouth twice daily. For back pain. 11/02/2016 Active Comment on above: Take 1 tablet by paula twice daily. For back pain. latanoprost 0.05 mg/ml / netarsudil 0.2 mg/ml ophthalmic solution (20 sources) Prostaglandin Analog, Rho Kinase Inhibitor Start: Netarsudil-Latanopr ost (Rocklatan) 0.02-0.005 % drops Active 1 NMA OPHTHALMIC AT BEDTIME December 02, 2023 12:00am INSTILL 1 DROP INTO EACH EYE AT BEDTIME Start: 12-02-2023 Netarsudil-Lat anoprost (Rocklatan) 0.02-0.005 % drops Active 1 DRP OPHTHALMIC AT BEDTIME December 02, 2023 12:00am INSTILL 1 DROP INTO EACH EYE AT BEDTIME Start: 11-07-2023 End: 07-30-2024 take 1 drop(s) into the eye(s) once daily at bedtime ROCKLATAN 0.02-0.005 % ophthalmic solution Use 1 Drop in both eyes daily at bedtime. 5 mL 11 07/30/2024 Active Start: 05-24-2023 End: 11-07-2023 take 1 drop(s) into the eye(s) once daily ROCKLATAN 0.02-0.005 % ophthalmic solution instill 1 drop into both eyes once daily 0 05/24/2023 11/07/2023 Discontinued Comment on above: instill 1 drop into both eyes once daily Use 1 Drop in both e yes daily at bedtime. loteprednol etabonate (EYSUVIS) 0.25 % drps (14 sources) loteprednol etab amrit (EYSUVIS) 0.25 % drps Use 1 Drop in eyes as needed. Active loteprednol etab amrit (EYSUVIS) 0.25 % drps Use 1 Drop in eyes as needed. 0 Active Comment on above: Use 1 Drop in eyes a s needed. Methylcellulose (20 sources) Start: 02-03-2021 Methylcellulose (With Sugar) (Citrucel (Sucrose)) powder Active 1 tbsp PO DAILY February 03, 2021 1:56pm Start: 02-03-2021 End: 12-02-2023 Methylcellulose (With Sugar) (Citrucel (Sucrose)) powder Discontinued 1 tbsp PO DAILY as needed for Constipation February 03, 2021 12:00am December 02, 2023 3:07pm Start: 02-03-2021 End: 12-02-2023 Methylcellulose (With Sugar) (Citrucel (Sucrose)) powder Discontinued 1 tbsp PO DAILY February 03, 2021 12:00am December 02, 2023 3:07pm Start: 02-03-2021 Methylcellulos e (With Sugar) (Citrucel (Sucrose)) powder Active 1 tbsp PO DAILY February 03, 2021 12:00am Start: 02-03-2021 Methylcellulos e (With Sugar) (Citrucel (Sucrose)) powder Active 1 tbsp PO DAILY February 02, 2021 11:00pm mometasone furoate 1 mg/ml topical cream (16 sources) Corticosteroid Start: 06-13-2013 mometasone (ELOCON) 0.1 % cream Indications: Other psoriasis APPLY TO AFFECTED AREA(S) PSORIASIS ON ELBOWS AND EARS QDAY TO BID PRN AND THEN TAPER OFF ABLE. AVOID FACE, EYES, EYELIDS, AND DEEP FOLD AREAS. 30 g 1 06/13/2013 Active Comment on above: APPLY TO AFFECTED AR EA(S) PSORIASIS ON ELBOWS AND EARS QDAY TO BID PRN AND THEN TAPER OFF ABLE. AVOID FACE, EYES, EYELIDS, AND DEEP FOLD AREAS. Unmmgjel-Rkv-Si-L ycopen-Lutein (Centrum Silver) 0.4 mg-300 mcg- 250 mcg tablet (10 sources) Start: 12-02-2023 take 1 tablet by mouth once daily Jaeynjco-Hkv-Rt-Ly copen-Lutein (Centrum Silver) 0.4 mg-300 mcg- 250 mcg tablet Active 1 {tbl} PO DAILY December 02, 2023 12:00am Start: 12-02-2023 take 1 tablet by paula th once daily Ervgbuln-Pbt-Sk-Lycopen-Lutein (Centrum Silver) 0.4 mg-300 mcg- 250 mcg tablet Active 1 TABLET PO DAILY December 02, 2023 12:00am Multivitamin preparation (20 sources) Start: 07-24-2020 take 1 capsule by mouth once daily multivitamin Active 1 CAP PO DAILY July 24, 2020 11:48am Start: 07-24-2020 End: 12-02-2023 take 1 capsule by mouth once daily multivitamin Discontinued 1 CAP PO DAILY July 24, 2020 1:00am December 02, 2023 3:08pm Start: 07-24-2020 take 1 capsule by mo [facility] once daily multivitamin Active 1 CAP PO DAILY July 24, 2020 1:00am Start: 07-24-2020 take 1 capsule by mo [facility] once daily multivitamin Active 1 CAP PO DAILY July 24, 2020 12:00am Start: 05-25-2019 End: 07-14-2020 take 1 tablet by mouth twice daily at mealtime Multivitamin Discontinued 1 TABLET PO TWICE DAILY WITH MEALS May 25, 2019 9:39am July 14, 2020 1:19pm Start: 05-25-2019 End: 07-14-2020 take 1 tablet by mouth twice daily at mealtime Multivitamin Discontinued 1 TABLET PO TWICE DAILY WITH MEALS May 25, 2019 12:00am July 14, 2020 1:19pm Start: 05-25-2019 End: 07-14-2020 take 1 tablet by mouth twice daily at mealtime Multivitamin Discontinued 1 TABLET PO TWICE DAILY WITH MEALS May 24, 2019 11:00pm July 14, 2020 12:19pm Nebulizer And Compressor (Portable Nebulizer System) device (20 sources) Start: 04-30-2023 Nebulizer And Compressor (Portable Nebulizer System) device Active 0 .Route 1 April 30, 2023 5:24pm As directed Start: 04-30-2023 End: 04-30-2023 Nebulizer And Compressor (Po rtable Nebulizer System) device Discontinued 0 .Route 1 April 30, 2023 12:00am April 30, 2023 5:24pm As directed pediatric multivitamin plus minerals with iron chewable (FLINTSTONES COMPLETE, IRON,) chewable tablet (16 sources) Start: 12-16-2015 take 1 tablet by mouth twice daily pediatric multivitamin plus minerals with iron chewable (FLINTSTONES COMPLETE, IRON,) chewable tablet Take 1 tablet by mouth twice daily. 12/16/2015 Active Start: 12-16-2015 take 1 tablet by paula twice daily pediatric multivitamin plus minerals with iron chewable (FLINTSTONES COMPLETE, IRON,) chewable tablet Take 1 tablet by mouth twice daily. 0 12/16/2015 Active Comment on above: Take 1 tablet by paula twice daily. phenylephrine hydrochloride 25 mg/ml ophthalmic solution (3 sources) alpha-1 Adrenergic Agonist Start: 11-26-2024 End: 11-27-2024 PHENYLephrine 2.5 % 1 Drop (AK-DILATE, PEPE-SYNEPHRINE) Start: 11-26-2024 End: 11-27-2024 1 Drop, BOTH EYES, DIRECT ED, Starting on Tue11/26/24 at 1330, Until Tue11/27/24 at 0129, Administer for dilation PROTECT FROM LIGHT, OPHT CLINIC MED ORDERS Start: 03-12-2024 End: 03-13-2024 PHENYLephrine 2.5 % 1 Drop ( AK-DILATE, PEPE-SYNEPHRINE) pimecrolimus 10 mg/ml topical cream (16 sources) Calcineurin Inhibitor Immunosuppressant Start: 05-31-2016 pimecrolimus (ELIDEL) 1 % cream Indications: Seborrheic dermatitis, unspecified , Other psoriasis , Other atopic dermatitis and related conditions Apply to affected areas of dermatitis and/or psoriasis rash on eyelids or central face twice daily until clear as tolerated. Taper as able when clear 15 g 1 05/31/2016 Active Comment on above: Apply to affected ar eas of dermatitis and/or psoriasis rash on eyelids or central face twice daily until clear as tolerated. Taper as able when clear proparacaine hydrochloride 5 mg/ml ophthalmic solution (5 sources) Local Anesthetic Start: 01-14-2025 End: 01-15-2025 proparacaine 0.5 % 1 drop (ALCAINE) Start: 07-30-2024 End: 07-31-2024 proparacaine 0.5 % 1 Drop (A LCAINE) Start: 07-30-2024 End: 07-31-2024 1 Drop, BOTH EYES, DIRECT ED, Starting on Tue07/30/24 at 1330, Until Tue07/31/24 at 0129, Administer for pneumo tonometry, tonopen tonometry, or pachymetry. In the event of a proparacaine shortage, administer tetracaine 0.5% ophthalmic drops 1 drop in both eyes as directed for pneumo tonometry, tonopen tonometry, or pachymetry, OPHT CLINIC MED ORDERS Start: 03-12-2024 End: 03-13-2024 proparacaine 0.5 % 1 Drop (A LCAINE) Start: 07-04-2023 End: 07-05-2023 proparacaine 0.5 % 1 Drop (A LCAINE) propylene glycol/peg 400 (SY STANE FREE, PF, OPHTHALMIC) (14 sources) propylene glycol /peg 400 (SYSTANE FREE, PF, OPHTHALMIC) Use 1 Drop in eyes as needed. Active propylene glycol /peg 400 (SYSTANE FREE, PF, OPHTHALMIC) Use 1 Drop in eyes as needed. 0 Active Comment on above: Use 1 Drop in eyes a s needed. tropicamide 10 mg/ml ophthalmic solution (3 sources) Anticholinergic Start: 11-26-2024 End: 11-27-2024 tropicamide 1 % 1 Drop (MYDRIACYL) Start: 11-26-2024 End: 11-27-2024 1 Drop, BOTH EYES, DIRECT ED, Starting on Tue11/26/24 at 1330, Until Tue11/27/24 at 0129, Administer for dilation, OPHT CLINIC MED ORDERS Start: 03-12-2024 End: 03-13-2024 tropicamide 1 % 1 Drop (MYDR IACYL) ursodiol 500 mg oral tablet (20 sources) Bile Acid Start: 12-14-2024 End: 02-14-2025 take 1 tablet by mouth twice daily Ursodiol 500 mg tablet Active 500 mg PO TWICE A DAY 180 February 14, 2025 4:35pm Start: 12-30-2023 End: 12-14-2024 take 1 tablet by mouth twice daily at mealtime Ursodiol 250 mg tablet Discontinued 500 mg PO TWICE DAILY WITH MEALS 360 90 September 14, 2024 1:06pm December 14, 2024 1:36pm Start: 12-30-2023 take 500 mg by mouth twice daily at mealtime Ursodiol Active 500 MG PO TWICE DAILY WITH MEALS 0 December 30, 2023 12:00am Start: 12-01-2021 End: 12-30-2023 take 1 tablet by mouth twice daily at mealtime Ursodiol 500 mg tablet Discontinued 0 .ROUTE .COMPLEX 180 August 03, 2023 4:55pm December 30, 2023 1:51pm take 1 tablet by mouth twice a day with meals FOR LIVER DISEASE Start: 01-27-2017 take 2 tablets [address] [facility] twice daily ursodiol (DANNIELLE) 250 mg tablet Take 2 tablets by mouth twice daily. 120 tablet 2 01/27/2017 Active Start: 12-06-2016 End: 12-01-2021 take 1 tablet by mouth twice daily at mealtime Ursodiol 250 mg tablet Discontinued 500 mg PO TWICE DAILY WITH MEALS August 25, 2021 4:20pm December 01, 2021 11:32am Start: 12-06-2016 End: 12-01-2021 take 500 mg by mouth twice daily at mealtime Ursodiol Discontinued 500 MG PO TWICE DAILY WITH MEALS August 25, 2021 4:20pm December 01, 2021 11:32am Comment on above: Take [address] [facility] twice daily. Completed/Discontinued Medications Medication Drug Class(es) Dates Sig (Normalized) Sig (Original) albuterol 0.83 mg/ml inhalation solution (20 sources) beta2-Adrenergic Agonist Start: 06-08-2023 End: 08-15-2023 take 2.5 mg by inhalation every four hours as needed for wheezing Albuterol Sulfate 2.5 mg /3 mL (0.083 %) solution for nebulization Discontinued 2.5 mg INHALATION Q4H as needed for shortness of breath or wheezing June 08, 2023 10:30am August 15, 2023 3:45pm Start: 04-30-2023 End: 06-08-2023 take 2.5 mg by inhalation every four hours as needed for wheezing Albuterol Sulfate 2.5 mg/0.5 mL solution for nebulization Discontinued 2.5 mg INHALATION Q4H as needed for shortness of breath or wheezing June 06, 2023 10:36pm June 08, 2023 10:31am Start: 08-06-2021 take 1 puff(s) by in halation every four hours Albuterol Sulfate (Ventolin Hfa) 90 mcg/actuation HFA aerosol inhaler Active 2 PUFF INHALATION Q4H 8.5 August 06, 2021 9:09am Start: 05-25-2019 End: 04-28-2023 Albuterol Sulfate (Ventolin Hfa) 90 mcg/actuation HFA aerosol inhaler Discontinued 2 NMA INHALATION Q4H as needed for Asthma 8.5 August 06, 2021 9:09am April 28, 2023 4:30pm Start: 05-25-2019 End: 04-28-2023 take 1 puff(s) by inhalation every four hours Albuterol Sulfate (Ventolin Hfa) 90 mcg/actuation HFA aerosol inhaler Discontinued 2 PUFF INHALATION Q4H 8.5 August 06, 2021 9:09am April 28, 2023 4:30pm Start: 11-12-2016 take 2 puff(s) by in halation every four hours as needed for wheezing albuterol HFA (PROAIR HFA) 90 mcg/actuation inhaler Inhale 2 Puffs as instructed every 4 hours as needed for Wheezing/Shortness of Breath. 1 g 3 11/12/2016 Active Comment on above: Inhale 2 Puffs as in structed every 4 hours as needed for Wheezing/Shortness of Breath. apixaban 5 mg oral tablet (20 sources) Factor Xa Inhibitor Start: 12-04-19 End: 12-08-19 take 1 tablet by mouth twice daily Apixaban (Eliquis) 5 mg tablet Discontinued 5 mg PO TWICE A DAY 60 December 08, 2022 3:29pm December 08, 2023 9:58am Comment on above: Take 1 tablet by paula th two times a day. Arthritis Pain Compound (15 sources) Start: 06-29-20 End: 07-14-20 Arthritis Pain Compound Discontinued 0 CLICK TOPICAL TWICE A DAY 60 June 29, 2020 11:51am July 14, 2020 1:17pm Start: 06-29-2020 End: 07-14-2020 Arthritis Pain Compound Disc ontinued 0 CLICK TOPICAL TWICE A DAY 60 June 29, 2020 12:00am July 14, 2020 1:17pm Start: 06-29-2020 End: 07-14-2020 Arthritis Pain Compound Disc ontinued 0 CLICK TOPICAL TWICE A DAY 60 June 28, 2020 11:00pm July 14, 2020 12:17pm Arthritis Pain Compound 60 CLICK Gm (6 sources) Start: 06-29-2020 End: 07-14-2020 Arthritis Pain Compound 60 CLICK Gm Discontinued 0 NMA TOPICAL TWICE A DAY 60 June 29, 2020 12:00am July 14, 2020 1:17pm Please contact the information source for Protocol details. ascorbic acid 500 mg oral tablet (20 sources) Vitamin C Start: 06-29-2020 End: 08-05-2020 take 1 tablet by mouth once daily Ascorbic Acid (Vitamin C) 500 MG tablet Discontinued 500 mg PO DAILY@1200 June 29, 2020 12:00am August 05, 2020 3:27pm Take this is the Ferrous Sulfate every day to increase iron absortion atorvastatin 20 mg oral tablet (20 sources) HMG-CoA Reductase Inhibitor Start: 05-25-2019 End: 10-22-2024 take 1 tablet by mouth at bedtime Atorvastatin 20 mg tablet Discontinued 20 mg PO AT BEDTIME 90 May 02, 2024 5:20pm October 22, 2024 3:27pm Start: 11-22-2016 End: 05-25-2019 Atorvastatin 40 MG tablet Di scontinued 40 mg PO December 06, 2016 12:00am May 25, 2019 9:34am Comment on above: Take 1 tablet by paula th daily at bedtime. For cholesterol. baclofen 10 mg oral tablet (20 sources) gamma-Aminobutyric Acid-ergic Agonist Start: 7 End: 3 take 1 tablet by mouth three times daily as needed for pain Baclofen 10 mg tablet Discontinued 10 mg PO THREE TIMES A DAY as needed for Pain July 24, 2020 1:00am December 29, 2022 2:14pm Comment on above: Take 1 tablet by paula th three times daily as needed (muscle spasms). brimonidine tartrate 1 mg/ml ophthalmic solution (20 sources) alpha-Adrenergic Agonist Start: 4 End: 5 take 0.1 drop(s) into the eye(s) three times daily brimonidine (ALPHAGAN P) 0.1 % drop Use 1 Drop in both eyes three times a day. 30 mL 07/30/2024 01/14/2025 Discontinued (Course of therapy completed) Start: 08-15-2023 End: 12-14-2024 take 1 drop(s) into the eye(s) twice daily Brimonidine 0.1 % drops Discontinued 1 NMA OPHTHALMIC DAILY August 15, 2023 1:00am December 14, 2024 1:36pm instill 1 drop into both eyes twice a day Start: 08-15-2023 take 1 drop(s) into the eye(s) twice daily Brimonidine Active 1 DRP OPHTHALMIC DAILY August 15, 2023 1:00am instill 1 drop into both eyes twice a day Start: 06-02-2019 End: 12-29-2022 Brimonidine 5 ML drops Disco ntinued 1 NMA EACH EYE TWICE A DAY June 02, 2019 12:00am December 29, 2022 2:14pm Start: 12-06-2016 End: 05-25-2019 Brimonidine 1 DROP bottle Discontinued 1 NMA OPHTHALMIC THREE TIMES A DAY December 06, 2016 12:00am May 25, 2019 9:34am Start: 12-06-2016 End: 05-25-2019 Brimonidine Discontinued 1 D RP OPHTHALMIC THREE TIMES A DAY December 06, 2016 12:00am May 25, 2019 9:34am Start: 10-17-2012 End: 07-30-2024 take 0.1 drop(s) into the eye(s) twice daily brimonidine (ALPHAGAN P) 0.1 % drop Use 1 Drop in both eyes two times a day. 30 mL 11 03/10/2024 07/30/2024 Discontinued Start: 10-17-2012 take 0.1 drop(s) int o the eye(s) twice daily brimonidine (ALPHAGAN P) 0.1 % Drop Use 1 Drop in both eyes twice daily. 0 10/17/2012 Active Comment on above: Use 1 Drop in both e yes twice daily. Use 1 Drop in both e yes two times a day. calcium carbonate 1250 mg / cholecalciferol 200 unt oral tablet (20 sources) Vitamin D Start: 06-09-2020 End: 08-05-2020 Calcium Carbonate-Vitamin D3 1 TABLET tablet Discontinued 1 {tbl} PO TWICE DAILY WITH MEALS June 09, 2020 6:50pm August 05, 2020 3:27pm Start: 06-09-2020 End: 08-05-2020 take 1 tablet by mouth twice daily at mealtime Calcium Carbonate-Vitamin D3 Discontinued 1 TABLET PO TWICE DAILY WITH MEALS June 09, 2020 6:50pm August 05, 2020 3:27pm carvedilol 3.125 mg oral tablet (20 sources) alpha-Adrenergic Jayden, beta-Adrenergic Jayden Start: 04-20-2024 End: 06-14-2024 Carvedilol 3.125 mg tablet Discontinued 3.125 mg PO .COMPLEX 180 April 20, 2024 12:00am June 14, 2024 1:13pm 3.125 mg orally twice daily: this is a dose decrease. 6.25 mg tablets too difficult for pt to cut in half.; must administer with a meal/food Start: 04-19-2024 End: 04-20-2024 take 3.125 mg by mouth twice daily at mealtime Carvedilol 6.25 mg tablet Discontinued 3.125 mg PO TWICE DAILY WITH MEALS 180 April 19, 2024 2:12pm April 20, 2024 9:40am Start: 01-22-2024 take 4 tablets by mo [facility] twice daily at mealtime carvedilol (COREG) 6.25 mg tablet Take 25 mg by mouth two times a day with meals. 01/22/2024 Active Start: 12-08-2023 End: 04-19-2024 take 1 tablet by mouth twice daily at mealtime Carvedilol 6.25 mg tablet Discontinued 6.25 mg PO TWICE DAILY WITH MEALS 180 January 09, 2024 5:03pm January 23, 2024 2:12pm cefdinir 300 mg oral capsule (9 sources) Cephalosporin Antibacterial Start: 12-08-2023 End: 12-20-2023 take 1 capsule by mouth twice daily Cefdinir 300 mg capsule Discontinued 300 mg PO TWICE A DAY December 08, 2023 12:00am December 20, 2023 10:51am cetirizine hydrochloride 10 mg oral capsule (20 sources) Histamine-1 Receptor Antagonist Start: 06-02-2019 End: 12-27-2023 take 1 capsule by mouth once daily as needed Cetirizine 10 mg capsule Discontinued 10 mg PO DAILY as needed for allergy October 05, 2022 2:17pm December 27, 2023 8:58am Start: 01-19-2013 [facility] Cetirizine 10 mg tablet Active 10 mg PO DAILY as needed January 23, 2024 12:00am Comment on above: Take 1 tablet by paula once daily. ciprofloxacin 500 mg oral tablet (8 sources) Quinolone Antimicrobial Start: 12-21-19 End: 12-30-19 take 1 tablet by mouth twice daily Ciprofloxacin Hcl (Cipro) 500 mg tablet Discontinued 500 mg PO TWICE A DAY 10 December 21, 2023 12:00am December 30, 2023 1:51pm Citrulline (20 sources) Start: 08-05-20 End: 02-04-20 Citrulline Discontinued EACH PO August 05, 2020 3:22pm February 03, 2021 2:04pm Start: 08-05-2020 End: 02-03-2021 Citrulline powder Discontinu ed NMA PO August 05, 2020 1:00am February 03, 2021 2:04pm Start: 08-05-2020 End: 02-03-2021 Citrulline Discontinued EACH PO August 05, 2020 1:00am February 03, 2021 2:04pm Start: 08-05-2020 End: 02-03-2021 Citrulline Discontinued EACH PO August 05, 2020 12:00am February 03, 2021 1:04pm clobetasol propionate 0.5 mg/ml topical cream (20 sources) Corticosteroid Start: 03-24-2023 End: 12-02-2023 Clobetasol 0.05 % cream Discontinued 1 NMA TOPICAL DAILY as needed for rash 60 March 24, 2023 5:07pm December 02, 2023 3:07pm Start: 03-24-2023 clobetasol (TE MOVATE) 0.05 % cream apply 1 APPLICATION topically once daily if needed for rash 03/24/2023 Active Start: 05-14-2021 End: 03-24-2023 Clobetasol 0.05 % cream Disc ontinued 1 NMA TOPICAL DAILY as needed for rash 60 May 14, 2021 4:25pm March 24, 2023 5:07pm Start: 07-24-2020 End: 12-02-2023 Clobetasol 0.05 % cream Disc ontinued 1 NMA TOPICAL DAILY as needed July 24, 2020 1:00am May 14, 2021 4:25pm Start: 01-28-2020 End: 06-09-2020 Clobetasol 0.05 % solution D iscontinued 1 NMA TOPICAL DAILY as needed for Dry Skin January 28, 2020 12:00am June 09, 2020 3:13pm Comment on above: apply 1 APPLICATION topically once daily if needed for rash clopidogrel 75 mg oral tablet (20 sources) [id number] Platelet Inhibitor Start: 06-02-2019 End: 10-23-2019 Clopidogrel 75 MG tablet Discontinued 1 {tbl} PO DAILY June 02, 2019 12:00am October 23, 2019 2:49pm Start: 06-02-2019 End: 08-05-2020 take 1 tablet by mouth once daily Clopidogrel 75 mg tablet Discontinued 75 mg PO DAILY October 23, 2019 2:49pm August 05, 2020 3:54pm dorzolamide 20 mg/ml ophthalmic solution (15 sources) Carbonic Anhydrase Inhibitor Start: 12-29-2022 End: 08-15-2023 Dorzolamide 2 % drops Discontinued 1 NMA OPHTHALMIC December 29, 2022 12:00am August 15, 2023 3:46pm Start: 12-29-2022 End: 08-15-2023 Dorzolamide Discontinued 1 D RP OPHTHALMIC December 29, 2022 12:00am August 15, 2023 3:46pm erythromycin 0.005 mg/mg ophthalmic ointment (20 sources) Macrolide, Macrolide Antimicrobial Start: 12-29-2022 End: 12-02-2023 Erythromycin 5 mg/gram (0.5 %) ointment Discontinued NMA OPHTHALMIC December 29, 2022 12:00am December 02, 2023 3:09pm Start: 12-29-2022 End: 12-02-2023 Erythromycin Discontinued G OPHTHALMIC December 29, 2022 12:00am December 02, 2023 3:09pm End: 07-30-2024 apply 5 mg into the eye(s) at bedtime erythromycin (ROMYCIN) 5 mg/gram (0.5 %) ophthalmic ointment apply A SMALL AMOUNT into right eye at bedtime 07/30/2024 Discontinued (Course of therapy completed) Comment on above: apply A SMALL AMOUNT into right eye at bedtime ezetimibe 10 mg oral tablet (20 sources) Dietary Cholesterol Absorption Inhibitor Start: End: take 1 tablet by mouth once daily Ezetimibe 10 mg tablet Discontinued 10 mg PO DAILY September 15, 2023 5:17pm August 15, 2024 5:12pm Comment on above: TAKE ONE TABLET BY M OUTH EVERY DAY famotidine 20 mg oral tablet (20 sources) Histamine-2 Receptor Antagonist Start: 0 End: 4 take 1 tablet by mouth once daily Famotidine 20 mg tablet Discontinued 20 mg PO DAILY August 10, 2023 1:52pm September 10, 2024 1:02pm Start: 06-29-2020 End: 08-06-2020 take 2 tablets by mouth once daily Famotidine 20 MG tablet Discontinued 40 mg PO DAILY June 29, 2020 12:00am August 06, 2020 3:57pm Start: 06-29-2020 End: 08-06-2020 take 40 mg by mouth once daily Famotidine Discontinued 40 MG PO DAILY June 29, 2020 12:00am August 06, 2020 3:57pm Comment on above: Take 1 tablet by paula th once daily. ferrous sulfate 325 mg oral tablet (20 sources) Start: 07-23-2021 End: 02-05-2025 take 1 tablet by mouth every other day Ferrous Sulfate 325 mg (65 mg iron) tablet Discontinued 325 mg PO EVERY OTHER DAY March 12, 2024 12:29pm February 05, 2025 8:44pm Start: 06-29-2020 End: 07-23-2021 take 1 tablet by mouth once daily Ferrous Sulfate 325 mg (65 mg iron) tablet Discontinued 325 mg PO DAILY@1200 May 06, 2021 8:09am July 23, 2021 10:28am ferrous sulfate 325 mg (65 mg iron) tablet Take 1 tablet by mouth every 48 hours. Active Comment on above: Take 1 tablet by paula th every 48 hours. finasteride 5 mg oral tablet (20 sources) 5-alpha Reductase Inhibitor Start: End: take 1 tablet by mouth once daily Finasteride 5 mg tablet Discontinued 5 mg PO DAILY August 18, 2023 5:34pm September 06, 2024 2:47pm Comment on above: Take one(1) tablet d aily. Fluad Quad (65yr up)(PF) 60 mcg (15 mcg x 4)/0.5mL IM syringe (flu vac (2 sources) Start: End: Fluad Quad (65yr up)(PF) 60 mcg (15 mcg x 4)/0.5mL IM syringe (flu vac Discontinued 60 MCG IM ONCE 0.5 June 23, 2021 11:30am June 23, 2021 12:04pm 120 actuat formoterol fumarate 0.005 mg/actuat / mometasone furoate 0.2 mg/actuat metered dose inhaler (20 sources) Corticosteroid, beta2-Adrenergic Agonist Start: 2 End: 2 Mometasone-Formoterol (Dulera) 200-5 mcg/actuation HFA aerosol inhaler Discontinued 2 NMA INHALATION TWICE A DAY September 23, 2021 1:00am November 23, 2021 5:21pm Start: 09-23-2021 End: 11-23-2021 take 1 puff(s) by inhalation twice daily Mometasone-Formoterol (Dulera) 200-5 mcg/actuation HFA aerosol inhaler Discontinued 2 PUFF INHALATION TWICE A DAY September 23, 2021 1:00am November 23, 2021 5:21pm 12 hr guaiFENesin 1200 mg extended release oral tablet (10 sources) Start: 06-29-2023 End: 12-30-2023 take 1 tablet by mouth every twelve hours Guaifenesin 1,200 mg tablet extended release 12hr Discontinued 1200 mg PO Q12H 60 June 29, 2023 12:00am December 30, 2023 1:53pm Start: 06-29-2023 End: 12-30-2023 take 1200 mg by mouth every twelve hours Guaifenesin Discontinued 1200 MG PO Q12H 60 June 29, 2023 12:00am December 30, 2023 1:53pm lisinopril 2.5 mg oral tablet (20 sources) Angiotensin Converting Enzyme Inhibitor Start: 11-22-2016 End: 06-29-2020 take 1 tablet by mouth at bedtime Lisinopril 2.5 mg tablet Discontinued 2.5 mg PO AT BEDTIME 90 November 06, 2019 3:53pm June 29, 2020 11:56am Comment on above: Take 1 tablet by paula once daily. Take 2.5 mg by mouth once daily. loratadine 10 mg oral tablet (8 sources) Start: 12-27-2023 End: 12-30-2023 take 1 tablet by mouth once daily Loratadine (Claritin) 10 mg tablet Discontinued 10 mg PO DAILY December 27, 2023 12:00am December 30, 2023 1:51pm magnesium hydroxide 80 mg/ml oral suspension (20 sources) Start: 06-02-2019 End: 06-27-2019 take 500 mg by mouth at bedtime Magnesium Hydroxide 400 MG/5 ML suspension Discontinued 500 mg PO AT BEDTIME June 02, 2019 12:00am June 27, 2019 1:29pm Start: 12-06-2016 End: 05-25-2019 take 1 mL by mouth once daily as needed for constipation Magnesium Hydroxide 30 ML suspension Discontinued 30 mL PO DAILY NEEDED as needed for Constipation December 06, 2016 12:00am May 25, 2019 9:39am Start: 12-06-2016 End: 05-25-2019 take 1 mL by mouth once daily as needed Magnesium Hydroxide Discontinued 30 ML PO DAILY NEEDED December 06, 2016 12:00am May 25, 2019 9:39am Start: 11-02-2016 Magnesium Hydr oxide ([employer] MILK OF MAGNESIA) 311 mg chew Indications: Chronic idiopathic constipation 2-4 tablets at bedtime for constipation. 0 11/02/2016 Active Comment on above: 2-[address] for constipation. magnesium oxide 500 mg oral tablet (20 sources) Start: 08-05-2020 End: 01-23-2024 Magnesium Oxide (Cornejo) 500 mg tablet Discontinued 1500 mg PO AT BEDTIME August 05, 2020 1:00am January 23, 2024 1:36pm Start: 06-27-2019 End: 07-14-2020 Magnesium Oxide (Cornejo) 5 00 mg tablet Discontinued 1500 mg PO AT BEDTIME June 27, 2019 12:00am July 14, 2020 1:19pm Multivitamin capsule (6 sources) Start: 07-24-2020 End: 12-02-2023 Multivitamin capsule Discontinued 1 NMA PO DAILY July 24, 2020 1:00am December 02, 2023 3:08pm Multivitamin tablet (6 sources) Start: 05-25-2019 End: 07-14-2020 Multivitamin tablet Discontinued 1 {tbl} PO TWICE DAILY WITH MEALS May 25, 2019 12:00am July 14, 2020 1:19pm netarsudil 0.2 mg/ml ophthalmic solution (20 sources) Rho Kinase Inhibitor Start: 06-06-2020 End: 08-15-2023 take 0.02 drop(s) into the eye(s) once daily Netarsudil 0.02 % drops Discontinued 1 NMA OPHTHALMIC DAILY February 03, 2021 2:00pm August 15, 2023 3:46pm Start: 06-02-2019 End: 08-29-2019 take 2.5 mL into the eye(s) once daily as needed Netarsudil 2.5 ML drops Discontinued 1 NMA EACH EYE DAILY NEEDED June 02, 2019 12:00am August 29, 2019 3:16pm Nirmatrelvir-Ritonavir (Paxlovid) 300 mg (150 mg x 2)-100 mg tablets,dose pack (5 sources) Start: 11-30-2024 End: 12-14-2024 Nirmatrelvir-Ritonavir (Paxlovid) 300 mg (150 mg x 2)-100 mg tablets,dose pack Discontinued 0 PO .COMPLEX November 30, 2024 12:00am December 14, 2024 1:38pm take TWO 150 mg tablets of nirmatrelvir with ONE 100 mg tablet of ritonavir twice daily for 5 days PO nitroglycerin 0.4 mg sublingual tablet (20 sources) Nitrate Vasodilator Start: 11-12-2016 End: 05-01-2024 Nitroglycerin 0.4 mg tablet, sublingual Discontinued 0.4 mg SL every 5 to 15 minutes as needed for chest pain September 15, 2023 12:29pm May 01, 2024 2:57pm Comment on above: Dissolve 1 tablet un liv the tongue every 5 minutes as needed for Chest Pain (Max of 3 tabs.). nystatin [id number] unt/ml / triamcinolone acetonide 1 mg/ml topical cream (20 sources) Polyene Antifungal, Corticosteroid Start: 07-30-2021 End: 03-01-2022 Nystatin-Triamcinolone 100,000-0.1 unit/g-% cream Discontinued 1 NMA TOPICAL TWICE A DAY July 30, 2021 1:00am March 01, 2022 2:09pm Start: 07-30-2021 End: 03-01-2022 Nystatin-Triamcinolone Disco ntinued 1 APPLIC TOPICAL TWICE A DAY 60 July 30, 2021 1:00am March 01, 2022 2:09pm omeprazole 20 mg delayed release oral tablet (20 sources) Proton Pump Inhibitor Start: 12-06-2016 End: 05-25-2019 Omeprazole 20 MG tablet,delayed release (DR/EC) Discontinued 20 mg PO December 06, 2016 12:00am May 25, 2019 9:40am Start: 11-22-2016 take 1 capsule by mo [facility] once daily before breakfast omeprazole (PRILOSEC) 20 mg capsule Indications: Atherosclerosis of [place] coronary artery of [place] heart without angina pectoris Take 20 mg by mouth daily before breakfast. 1/2 hr before meal. 30 capsule 11/22/2016 Active Comment on above: Take 1 capsule by mo [facility] daily before breakfast. 1/2 hr before meal. Take 20 mg by mouth daily before breakfast. 1/2 hr before meal. oxyCODONE hydrochloride 5 mg oral tablet (20 sources) Opioid Agonist Start: 0 End: 0 take 1 tablet by mouth every six hours as needed for pain Oxycodone 5 MG tablet Discontinued 5 mg PO EVERY 6 HOURS NEEDED as needed for Pain Score 6-10/10 12 June 29, 2020 June 11, 2020 12:00am June 29, 2020 11:55am Start: 06-29-2020 End: 06-29-2020 take 1 tablet by mouth every six hours as needed for pain Oxycodone 5 MG tablet Discontinued 5 mg PO EVERY 6 HOURS NEEDED as needed for Pain Score 6-10/10 12 June 29, 2020 June 11, 2020 12:00am June 29, 2020 11:55am Start: 06-29-2020 End: 06-29-2020 take 1 tablet by mouth every six hours as needed for pain Oxycodone 5 MG tablet Discontinued 5 mg PO EVERY 6 HOURS NEEDED as needed for Pain Score 6-10/10 12 June 29, 2020 June 11, 2020 12:00am June 29, 2020 11:55am Start: 06-29-2020 End: 06-29-2020 take 1 tablet by mouth every six hours as needed for pain Oxycodone 5 MG tablet Discontinued 5 mg PO EVERY 6 HOURS NEEDED as needed for Pain Score 6-10/10 12 June 29, 2020 June 11, 2020 12:00am June 29, 2020 11:55am Start: 06-29-2020 End: 06-29-2020 take 1 tablet by mouth every six hours as needed for pain Oxycodone 5 MG tablet Discontinued 5 mg PO EVERY 6 HOURS NEEDED as needed for Pain Score 6-10/10 12 June 29, 2020 June 11, 2020 12:00June 29, 2020 11:55am Start: 06-29-2020 End: 06-29-2020 take 1 tablet by mouth every six hours as needed for pain Oxycodone 5 MG tablet Discontinued 5 mg PO EVERY 6 HOURS NEEDED as needed for Pain Score 6-10/10 12 June 29, 2020 June 11, 2020 12:00am June 29, 2020 11:55am Start: 06-29-2020 End: 06-29-2020 take 5 mg by mouth every six hours as needed Oxycodone Discontinued 5 MG PO EVERY 6 HOURS NEEDED 08 21June 29, 2020 June 29, 2020 11:55am Start: 06-29-2020 End: 06-29-2020 take 5 mg by mouth every six hours as needed Oxycodone Discontinued 5 MG PO EVERY 6 HOURS NEEDED 08 21June 29, 2020 June 29, 2020 11:55am Start: 06-29-2020 End: 06-29-2020 take 5 mg by mouth every six hours as needed Oxycodone Discontinued 5 MG PO EVERY 6 HOURS NEEDED 08 21June 29, 2020 June 29, 2020 11:55am Start: 06-29-2020 End: 06-29-2020 take 5 mg by mouth every six hours as needed Oxycodone Discontinued 5 MG PO EVERY 6 HOURS NEEDED 08 21June 29, 2020 June 29, 2020 11:55am Start: 06-29-2020 End: 06-29-2020 take 5 mg by mouth every six hours as needed Oxycodone Discontinued 5 MG PO EVERY 6 HOURS NEEDED 08 21June 29, 2020 June 29, 2020 11:55am Start: 06-29-2020 End: 06-29-2020 take 5 mg by mouth every six hours as needed Oxycodone Discontinued 5 MG PO EVERY 6 HOURS NEEDED 08 21June 29, 2020 June 29, 2020 11:55am Start: 06-29-2020 End: 06-29-2020 take 5 mg by mouth every six hours as needed Oxycodone Discontinued 5 MG PO EVERY 6 HOURS NEEDED 08 21June 29, 2020 June 29, 2020 11:55am Start: 06-29-2020 End: 06-29-2020 take 5 mg by mouth every six hours as needed Oxycodone Discontinued 5 MG PO EVERY 6 HOURS NEEDED 08 21June 29, 2020 June 29, 2020 11:55am Start: 06-29-2020 End: 06-29-2020 take 5 mg by mouth every six hours as needed Oxycodone Discontinued 5 MG PO EVERY 6 HOURS NEEDED 12 June 29, 2020 June 29, 2020 11:55am Start: 06-29-2020 End: 06-29-2020 take 5 mg by mouth every six hours as needed Oxycodone Discontinued 5 MG PO EVERY 6 HOURS NEEDED 08 21June 29, 2020 June 29, 2020 10:55am Start: 06-29-2020 End: 06-29-2020 take 5 mg by mouth every six hours as needed Oxycodone Discontinued 5 MG PO EVERY 6 HOURS NEEDED 08 21June 29, 2020 June 29, 2020 10:55am Start: 06-29-2020 End: 06-29-2020 take 5 mg by mouth every six hours as needed Oxycodone Discontinued 5 MG PO EVERY 6 HOURS NEEDED 08 21June 29, 2020 June 29, 2020 10:55am Start: 06-29-2020 End: 06-29-2020 take 5 mg by mouth every six hours as needed Oxycodone Discontinued 5 MG PO EVERY 6 HOURS NEEDED 08 21June 29, 2020 June 29, 2020 10:55am Start: 06-09-2020 End: 06-29-2020 take 5 mg by mouth every six hours as needed Oxycodone Discontinued 5 MG PO EVERY 6 HOURS NEEDED 08 21June 09, 2020 3:13pm June 29, 2020 11:55am Pediatric Multivitamin No.76 (15 sources) Start: 12-06-2016 End: 05-25-2019 Pediatric Multivitamin No.76 Discontinued December 06, 2016 1:12pm May 25, 2019 9:39am Start: 12-06-2016 End: 05-25-2019 Pediatric Multivitamin No.76 Discontinued December 06, 2016 12:00am May 25, 2019 9:39am Start: 12-06-2016 End: 05-25-2019 Pediatric Multivitamin No.76 Discontinued December 05, 2016 11:00pm May 25, 2019 8:39am Pediatric Multivitamin No.76 1 EACH tablet,chewable (6 sources) Start: 12-06-2016 End: 05-25-2019 Pediatric Multivitamin No.76 1 EACH tablet,chewable Discontinued December 06, 2016 12:00am May 25, 2019 9:39am polymyxin b [id number] unt/ml / trimethoprim 1 mg/ml ophthalmic solution (11 sources) Dihydrofolate Reductase Inhibitor Antibacterial, Polymyxin-class Antibacterial Start: 08-09-2024 End: 08-16-2024 Polymyxin B Sulf-Trimethoprim 10,000 unit- 1 mg/mL drops Discontinued 1 NMA OPHTHALMIC THREE TIMES A DAY 10 August 09, 2024 1:00am August 15, 2024 1:00am August 16, 2024 1:09am while awake; do not exceed 6 doses in 24 hours microencapsulated potassium chloride 10 meq extended release oral tablet (20 sources) Start: 12-30-2023 End: 11-15-2024 take 1 tablet by mouth once daily Potassium Chloride 10 mEq tablet,ER particles/crystals Discontinued 10 meq PO daily August 28, 2024 1:53pm November 15, 2024 4:33pm Start: 12-08-2023 End: 12-30-2023 take 1 capsule by mouth once daily Potassium Chloride 10 mEq capsule, extended release Discontinued 10 meq PO DAILY December 08, 2023 12:00am December 30, 2023 1:53pm predniSONE 10 mg oral tablet (20 sources) Start: 06-29-2023 End: 12-30-2024 Prednisone 10 mg tablet Discontinued 10 mg PO daily 17 09December 18, 2024 12:00am December 29, 2024 12:00am December 30, 2024 12:05am take 4 tabs for three days, then 3 tabs for three days, then 2 tabs for three days, then 1 tab for 3 days Start: 01-24-2023 End: 06-29-2023 Prednisone 5 mg tablets,dose pack Discontinued 5 mg PO As Directed January 24, 2023 12:00am June 29, 2023 1:07pm see taper instructions Comment on above: take 4 tablets by mo [facility] daily for 3 days then 3 daily for 3 days ... (REFER TO PRESCRIPTION NOTES). rocklan (15 sources) Start: 12-29-2022 End: 08-15-2023 rocklan Discontinued EACH EYE December 29, 2022 12:00am August 15, 2023 3:46pm Start: 12-29-2022 rocklan Active EACH EYE December 29, 2022 12:00am ticagrelor 90 mg oral tablet (20 sources) Start: 11-22-2016 End: 05-25-2019 take 1 tablet by mouth twice daily Ticagrelor 90 MG tablet Discontinued 90 mg PO TWICE A DAY December 06, 2016 12:00am May 25, 2019 9:41am Comment on above: Take 1 tablet by paula twice daily. Take 90 mg by mouth two times a day. travoprost 0.04 mg/ml ophthalmic solution (20 sources) Prostaglandin Analog Start: 01-28-2010 End: 01-23-2024 Travoprost 1 DROP bottle Discontinued 1 NMA EACH EYE AT BEDTIME June 02, 2019 12:00am January 23, 2024 1:36pm Comment on above: Use one (1) drop eac h eye one (1) time daily. triamcinolone acetonide 40 mg/ml injectable suspension (2 sources) Corticosteroid Start: 11-30-2021 End: 11-30-2021 Kenalog (triamcinolone acetonide) 40 mg/mL suspension for injection Discontinued 80 MG INTRAARTIC ONCE 2 November 30, 2021 1:43pm November 30, 2021 2:44pm vitamin b12 1 mg oral capsule (20 sources) Vitamin B12 Start: 11-19-2020 End: 08-15-2024 take 1 capsule by mouth once daily Cyanocobalamin (Vitamin B-12) 1,000 mcg capsule Discontinued 1000 ug PO DAILY November 19, 2020 1:00am August 15, 2024 5:12pm Problems Active Problems Problem Classification Problem Date Documented Da te Episodic/Chronic Acute and unspecified renal failure (12 sources) Acute renal failure syndrome; 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: [Acute kidney failure, unspecified] 12-03-2023 Episodic Acute myocardial infarction (20 sources) Myocardial infarction; 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: [Non-ST elevation (NSTEMI) myocardial infarction] 08-01-2021 Chronic Administrative/social admission (19 sources) Patient encounter status; 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: [Other specified counseling] 12-29-2022 Episodic Allergic reactions (20 sources) Inflammatory dermatosis; 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: [Dermatitis, unspecified] Onset: 8 Resolved: 7 11-02-2016 Episodic Asthma (20 sources) Asthma; 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: [Unspecified asthma, uncomplicated] Onset: 7 Chronic Biliary tract disease (20 sources) Cholelithiasis without obstruction; 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: [Calculus of gallbladder without cholecystitis without obstruction] Onset: 9 Resolved: 7 06-02-2019 Episodic Calculus of urinary tract (20 sources) Ureteric stone; 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: [Calculus of ureter] Onset: 9 Resolved: 7 12-06-2023 Episodic Cardiac dysrhythmias (20 sources) Atrial fibrillation; 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: [Unspecified atrial fibrillation] Onset: 5 Chronic Cardiac dysrhythmias (20 sources) Sinus bradycardia; 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: [Bradycardia, unspecified] Onset: 2 Episodic Chronic obstructive pulmonary disease and bronchiectasis (1 source) Chronic obstructive pulmonary disease, unspecified; 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: [Chronic obstructive pulmonary disease, unspecified] Onset: 4 Chronic Coagulation and hemorrhagic disorders (20 sources) Platelet count below reference range; 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: [Thrombocytopenia, unspecified] 08-05-2020 Chronic Conditions associated with dizziness or vertigo (20 sources) Dizziness; 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: [Dizziness and giddiness] Onset: 8 Episodic Congestive heart failure; nonhypertensive (18 sources) Congestive heart failure; 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: [Heart failure, unspecified] 01-23-2024 Chronic Coronary atherosclerosis and other heart disease (20 sources) Coronary atherosclerosis; 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: [Atherosclerotic heart disease of [place] coronary artery without angina pectoris] Onset: 0 Resolved: 7 Chronic Comment on above: 2.75 x 15 mm Promus to mid LAD, 3.0 x 12 mm Promus to proximal LAD 08/14/10; 2.5 x 8 mm Xience Alpine FIDEL to mid LAD 11/15/16The patient's previous angina was a profound dyspnea on exertion. He denies any recurrence of the symptoms and is adamant that it is not consistent with the shortness of breath he is experiencing now which started with his COVID infection. Coronary atherosclerosis and other heart disease (20 sources) Stented coronary artery; 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: [Presence of coronary angioplasty implant and graft] Episodic Comment on above: 2.75 x 15 mm Promus to mid LAD, 3.0 x 12 mm Promus to proximal LAD 08/14/10; 2.5 x 8 mm Xience Alpine FIDEL to mid LAD 11/15/16 Deficiency and other anemia (16 sources) Iron deficiency anemia due to blood loss; 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: [Iron deficiency anemia secondary to blood loss (chronic)] Onset: 6 12-23-2015 Chronic Deficiency and other anemia (20 sources) Iron deficiency anemia; 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: [Iron deficiency anemia, unspecified] 09-27-2022 Episodic Deficiency and other anemia (2 sources) Iron deficiency anemia, unspecified; 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: [Iron deficiency anemia, unspecified] Episodic Deficiency and other anemia (20 sources) Anemia; 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: [Anemia, unspecified] 09-27-2022 Episodic Disorders of lipid metabolism (20 sources) Hyperlipidemia; 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: [Hyperlipidemia, unspecified] Onset: Chronic Disorders of teeth and jaw (18 sources) Bleeding gums; 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: [Other specified disorders of gingiva and edentulous alveolar ridge] 09-01-2022 Episodic E Codes: Fall (20 sources) Fall; 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: [Unspecified fall, initial encounter] 09-27-2022 Episodic Esophageal disorders (12 sources) Gastroesophageal reflux disease; 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: [Gastro-esophageal reflux disease without esophagitis] Onset: 5 12-08-2023 Chronic Essential hypertension (20 sources) Essential hypertension; 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: [Essential (primary) hypertension] Onset: 7 Chronic Fluid and electrolyte disorders (20 sources) Hyponatremia; 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: [Hypo-osmolality and hyponatremia] 09-27-2022 Episodic Fracture of lower limb (20 sources) Closed fracture patella, vertical ; 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: [Displaced longitudinal fracture of left patella, initial encounter for closed fracture] 09-27-2022 Episodic Fracture of upper limb (20 sources) Fracture of triquetral bone of wrist; 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: [Displaced fracture of triquetrum [cuneiform] bone, left wrist, initial encounter for closed fracture] 09-27-2022 Episodic Fracture of upper limb (20 sources) Fracture of triquetral bone of wrist; 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: [Displaced fracture of triquetrum [cuneiform] bone, right wrist, initial encounter for closed fracture] 09-27-2022 Episodic Glaucoma (20 sources) Glaucoma; 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: [Unspecified glaucoma] Onset: 0 11-02-2016 Chronic Heart valve disorders (20 sources) Aortic valve stenosis; 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: [Nonrheumatic aortic (valve) stenosis] 09-27-2022 Chronic Hyperplasia of prostate (20 sources) Benign prostatic hyperplasia; 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: [Benign prostatic hyperplasia without lower urinary tract symptoms] Onset: Chronic Immunizations and screening for infectious disease (10 sources) Contact with or exposure to other viral diseases; 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: [Exposure to COVID-19 virus] 11-30-2024 Episodic Inflammation; infection of eye (except that caused by tuberculosis or sexually transmitteddisease) (9 sources) Blepharitis; 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: [Squamous blepharitis right eye, upper and lower eyelids] 08-14-2024 Episodic Malaise and fatigue (20 sources) Asthenia; 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: [Other malaise] Episodic Nutritional deficiencies (20 sources) Vitamin D deficiency; 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: [Vitamin D deficiency, unspecified] Chronic Osteoarthritis (20 sources) Osteoarthritis; 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: [Unspecified osteoarthritis, unspecified site] Onset: 7 11-21-2006 Chronic Other aftercare (10 sources) 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; 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] 10-20-2023 Episodic Other and unspecified benign neoplasm (20 sources) History of polyp of colon; 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: [Personal history of colonic polyps] Onset: 7 Resolved: 7 09-27-2022 Episodic Other circulatory disease (20 sources) Orthostatic hypotension; 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: [Orthostatic hypotension] 09-27-2022 Episodic Other connective tissue disease (20 sources) Foot pain; 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: [Pain in right foot] 09-27-2022 Episodic Other connective tissue disease (14 sources) Extensor tenosynovitis of wrist; 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: [Other synovitis and tenosynovitis, right forearm] 01-24-2023 Episodic Other connective tissue disease (4 sources) Other synovitis and tenosynovitis, right forearm; 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: [Other tenosynovitis of hand and wrist] 01-24-2023 Episodic Other eye disorders (2 sources) Bilateral eye band keratopathy; 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, bilateral] 06-01-2023 Episodic Other eye disorders (1 source) Bilateral red eyes; 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: [Other specified disorders of eye and adnexa] 08-14-2024 Episodic Other gastrointestinal disorders (16 sources) Chronic idiopathic constipation; 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: [Chronic idiopathic constipation] Onset: 7 11-02-2016 Chronic Other gastrointestinal disorders (20 sources) Occult blood in stools; 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: [Other fecal abnormalities] 12-23-2021 Episodic Other gastrointestinal disorders (12 sources) Dysphagia; 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: [Dysphagia, unspecified] 11-15-2024 Episodic Other gastrointestinal disorders (1 source) Dysphagia, unspecified; 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: [Dysphagia, unspecified] Onset: Episodic Other inflammatory condition of skin (20 sources) Psoriasis; 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: [Psoriasis, unspecified] Onset: 7 Resolved: 7 09-27-2022 Chronic Other inflammatory condition of skin (16 sources) Rosacea; 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: [Rosacea, unspecified] Onset: 8 08-30-2008 Chronic Other inflammatory condition of skin (2 sources) Psoriasis, unspecified; 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: [Other psoriasis] 03-24-2023 Chronic Other injuries and conditions due to external causes (20 sources) Fracture of bone; 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: [Unspecified multiple injuries, initial encounter] 09-27-2022 Episodic Comment on above: Bilateral wrists, le ft patella and nasal bone Other liver diseases (20 sources) Disease of liver; 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: [Liver disease, unspecified] Onset: 9 Resolved: 7 07-24-2020 Chronic Other liver diseases (20 sources) Primary biliary cholangitis; 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] Onset: 1 11-02-2016 Chronic Other lower respiratory disease (20 sources) Dyspnea; 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: [Shortness of breath] 12-23-2021 Episodic Other lower respiratory disease (20 sources) H/O: pneumonia; 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: [Personal history of pneumonia (recurrent)] 08-05-2020 Episodic Other lower respiratory disease (20 sources) Restrictive lung disease; 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: [Other disorders of lung] 09-27-2022 Episodic Other lower respiratory disease (4 sources) Other disorders of lung; 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: [Other diseases of lung, not elsewhere classified] Episodic Other lower respiratory disease (12 sources) H/O: asthma; 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: [Personal history of other diseases of the respiratory system] 04-22-2023 Episodic Other lower respiratory disease (20 sources) Cough; 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: [Cough] Onset: 7 Resolved: 6 04-22-2023 Episodic Other nervous system disorders (8 sources) Disorder of brain; 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: [Encephalopathy, unspecified] 12-08-2023 Chronic Other nervous system disorders (2 sources) Encephalopathy, unspecified; 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: [Encephalopathy, unspecified] 12-08-2023 Chronic Other non-epithelial cancer of skin (20 sources) History of malignant neoplasm of skin; 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: [Personal history of other malignant neoplasm of skin] 09-27-2022 Episodic Other nutritional; endocrine; and metabolic disorders (20 sources) Obesity; 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: [Obesity, unspecified] Onset: 7 Resolved: 7 09-27-2022 Chronic Other nutritional; endocrine; and metabolic disorders (4 sources) Obesity, unspecified; 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: [Obesity, unspecified] Chronic Other skin disorders (19 sources) Facial swelling ; 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: [Localized swelling, mass and lump, head] 09-27-2022 Episodic Other upper respiratory disease (20 sources) Seasonal allergy; 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: [Other seasonal allergic rhinitis] 09-27-2022 Chronic Other upper respiratory disease (8 sources) Allergic rhinitis; 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: [Allergic rhinitis, unspecified] 12-08-2023 Chronic Other upper respiratory disease (2 sources) Allergic rhinitis, unspecified; 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: [Allergic rhinitis, cause unspecified] 12-08-2023 Chronic Other upper respiratory disease (20 sources) Bleeding from nose; 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: [Epistaxis] 03-21-2023 Episodic Other upper respiratory infections (11 sources) Sore throat symptom; 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: [Acute pharyngitis, unspecified] Onset: 5 11-30-2024 Episodic Alexandra-; endo-; and myocarditis; cardiomyopathy (except that caused by tuberculosis or sexually transmitted disease) (10 sources) Cardiomyopathy; 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: [Cardiomyopathy, unspecified] 12-06-2023 Chronic Pneumonia (except that caused by tuberculosis or sexually transmitted disease) (10 sources) Pneumonia; 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: [Pneumonia, unspecified organism] 12-08-2023 Episodic Residual codes; unclassified (20 sources) History of colectomy; 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: [Acquired absence of other specified parts of digestive tract] 09-27-2022 Episodic Residual codes; unclassified (20 sources) Memory impairment; 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: [Other amnesia] 05-14-2021 Episodic Residual codes; unclassified (10 sources) Other amnesia; 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: [Memory loss] Episodic Retinal detachments; defects; vascular occlusion; and retinopathy (2 sources) Epiretinal membrane of left eye; 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: [Puckering of macula, left eye] 06-01-2023 Chronic Rheumatoid arthritis and related disease (20 sources) Rheumatoid arthritis; 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: [Rheumatoid arthritis, unspecified] 09-27-2022 Chronic Septicemia (except in labor) (12 sources) Sepsis; 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: [Sepsis, unspecified organism] 12-02-2023 Episodic Spondylosis; intervertebral disc disorders; other back problems (20 sources) Degeneration of cervical intervertebral disc; 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: [Other cervical disc degeneration, unspecified cervical region] Onset: 3 Resolved: 7 09-27-2022 Chronic Comment on above: Worst at C5-6 and C6 -7. Sprains and strains (15 sources) Sprain of wrist; 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: [Unspecified sprain of right wrist, initial encounter] 01-22-2023 Episodic Unclassified (1 source) Contact with and (suspected) exposure to COVID-19; 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: [Contact with and (suspected) exposure to COVID-19] Onset: Urinary tract infections (16 sources) Urinary tract infectious disease; 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: [Urinary tract infection, site not specified] 12-02-2023 Episodic Viral infection (17 sources) Disease caused by 2019-nCoV; 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: [COVID-19] 04-22-2023 Episodic Comment on above: Continue management per the primary service. The patient reports he still has some shortness of breath but it is nothing like the shortness of breath/dyspnea on exertion he experienced with his cardiac event in 2017. Viral infection (1 source) COVID-19; 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: [COVID-19] Onset: 5 Past or Other Problems Problem Classification Problem Date Documented Da te Episodic/Chronic Allergic reactions (11 sources) Atopic dermatitis; 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: [Other atopic dermatitis] Onset: 8 Resolved: 7 11-02-2016 Chronic Deficiency and other anemia (1 source) Anemia, unspecified; 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: [Anemia, unspecified] Onset: 5 Episodic Gastrointestinal hemorrhage (11 sources) Gastrointestinal hemorrhage; 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: [Gastrointestinal hemorrhage, unspecified] Onset: 6 Resolved: 7 11-02-2016 Episodic Other and unspecified benign neoplasm (16 sources) Dysplasia of colon; 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: [Polyp of colon] Onset: 7 11-02-2016 Episodic Other circulatory disease (11 sources) Disorder of capillaries; 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: [Disease of capillaries, unspecified] Onset: 8 Resolved: 7 11-02-2016 Episodic Other connective tissue disease (11 sources) Plantar fascial fibromatosis; 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: [Plantar fascial fibromatosis] Onset: 9 Resolved: 7 11-02-2016 Episodic Other gastrointestinal disorders (1 source) Other fecal abnormalities; 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: [Other fecal abnormalities] Onset: 4 Episodic Other inflammatory condition of skin (20 sources) Seborrheic dermatitis; 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: [Other seborrheic dermatitis] Onset: 8 Resolved: 7 08-30-2008 Episodic Other liver diseases (11 sources) Biliary cirrhosis; 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: [Biliary cirrhosis, unspecified] Onset: 7 Resolved: 0 08-26-2010 Chronic Other lower respiratory disease (11 sources) Finding of respiration; 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: [Other forms of dyspnea] Onset: 7 Resolved: 6 06-22-2016 Episodic Other lower respiratory disease (2 sources) Shortness of breath; 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: [Shortness of breath] Onset: 4 Episodic Other nervous system disorders (11 sources) Abnormal gait; 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: [Unspecified abnormalities of gait and mobility] Onset: 7 Resolved: 7 11-02-2016 Episodic Other screening for suspected conditions (not mental disorders or infectious disease) (20 sources) Raised prostate specific antigen; 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: [Elevated prostate specific antigen [PSA]] Onset: 7 Resolved: 7 11-02-2016 Episodic Other skin disorders (11 sources) Finding of region of thorax; 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: [Localized swelling, mass and lump, trunk] Onset: 7 Resolved: 7 11-02-2016 Episodic Other skin disorders (11 sources) Seborrheic keratosis; 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: [Other seborrheic keratosis] Onset: 9 Resolved: 7 11-02-2016 Episodic Residual codes; unclassified (11 sources) Flushing; 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: [Flushing] Onset: 8 Resolved: 7 11-02-2016 Episodic Spondylosis; intervertebral disc disorders; other back problems (20 sources) Chronic low back pain; 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: [Lumbago with sciatica, unspecified side] Onset: 7 Resolved: 7 12-23-2015 Episodic Results Test Name Value Interpretation Reference Range Facility Basic Metabolic Profile (BMP )on 03-07-2025 BUN/CRE 18.4 RATIO Normal 10-20 [facility] Comment on above: Performed By: #### L 500.2500, L503.7505 #### [facility] [address] [place], [address] Calcium [Mass/Vol] 9.3 mg/dL Normal 7.6-11.0 [facility] Comment on above: Performed By: #### L 500.2500, L503.7505 #### [facility] [address] [place], [address] Chloride [Moles/Vol] 103 mmol/L Normal 98-108 [facility] Comment on above: Performed By: #### L 500.2500, L503.7505 #### [facility] [address] [place], [address] CO2 [Moles/Vol] 26.9 mmol/L Normal 21.0-32.0 [facility] Comment on above: Performed By: #### L 500.2500, L503.7505 #### [facility] [address] [place], [address] Creatinine [Mass/Vol] 0.94 mg/dL Normal 0.70-1.20 [facility] Comment on above: Performed By: #### L 500.2500, L503.7505 #### [facility] [address] [place], [address] GAP 11 Normal 5-15 [facility] Comment on above: Performed By: #### L 500.2500, L503.7505 #### [facility] [address] [place], [address] GFR/1.73 sq M.predicted among non-blacks MDRD (S/P/Bld) [Vol rate/Area] 78 mL/min/{1.73_m2} Normal >60 [facility] Comment on above: Result Comment: mL/m in/1.73m2 CKD-EPI Creatinine Equation (2020) Performed By: #### L 500.2500, L503.7505 #### [facility] [address] [place], [address] Glucose [Mass/Vol] 79 mg/dL Normal 70-99 [facility] Comment on above: Performed By: #### L 500.2500, L503.7505 #### [facility] [address] [place], [address] Potassium [Moles/Vol] 4.9 mmol/L Normal 3.3-5.1 [facility] Comment on above: Result Comment: Hemo lysis present, Results??could be affected. ?? Performed By: #### L 500.2500, L503.7505 #### [facility] [address] [place], [address] Sodium [Moles/Vol] 140 mmol/L Normal 133-145 [facility] Comment on above: Performed By: #### L 500.2500, L503.7505 #### [facility] [address] [place], [address] Urea nitrogen [Mass/Vol] 17 mg/dL Normal 4-19 [facility] Comment on above: Performed By: #### L 500.2500, L503.7505 #### [facility] [address] [place], [address] L503.7505on 03-07-2025 Natriuretic peptide B (Bld) [Mass/Vol] 3513 pg/mL High <=1800 [facility] Comment on above: Result Comment: Hear t Failure Unlikely: < 300 pg/mL Heart Failure Likely < 50 Years: > 450 pg/mL 50-75 Years: > 900 pg/mL >75 Years: > 1800 pg/mL Performed By: #### L 500.2500, L503.7505 #### [facility] [address] [place], [address] Cardiology Visit Reporton Cardiology Visit Report [facility] [address] [place], [place] [address] OFFICE VISIT Date of Service: 02/19/25 MR#: [id number] Acct: [id number] Name: JESSEE RUST Rep #: [id number] 2 : 1935 Provider: HUAN ramsay Age/Sex: 89/M Location: [facility] Status: Signed HPI HPI History of Present Illness Details: Jessee Rust is an 89-year-old gentleman who presents for follow-up cardiovascular evaluation. He is a gentleman with a history of coronary artery disease with stenting to his LAD in 2009 and 2016, hypertension, hyperlipidemia, aortic stenosis which is mild to moderate, and atrial fibrillation which was diagnosed in November 2021. He also has a history of primary biliary cirrhosis. He had a Holter monitor in November 2021 did not demonstrate any evidence of atrial fibrillation. Stress test in July 2021 demonstrated no evidence of ischemia. 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 He had heart catheterization on 12/06/2023 that showed mid LAD 50% stenosis, proximal RCA 40% stenosis, and ostial RPDA at 50% stenosis. Medical therapy was recommended. Echocardiogram showed an ejection fraction of 45%. During hospitalization he was also treated for encephalopathy due to UTI and probable pneumonia, thrombocytopenia, and acute kidney injury. Repeat echo in 02/2024 demonstrated an improved EF of 55%. He states that he has been in atrial fibrillation for about 2 weeks. He does monitor this with his apple watch. He has been taking Aspirin 81mg daily since November of 2023. From a cardiac standpoint, the patient is doing well. He denies any palpitations, chest pain, pressure or heaviness. He denies SOB, Orthopnea, and PND. He does not have bleeding issues; no blood in urine, stool, or nosebleeds. He does acknowledge a decrease in energy level. He denies myalgias, or claudication. He does not have edema, or sudden weight gain. He denies lightheadedness, dizziness, syncopal or near syncopal episodes, and headaches. Intake Vital Signs 02/14/25 14:27 02/19/25 06:29 Height 6 ft 6 ft Weight: 222 lb BMI 30.1 BP 156/80 H Blood Pressure Location Lt brachial Position Sitting Respiration 18 Pulse 78 Pulse Source Monitor Pulse Oximetry (%) 98 Intake Visit Reasons: Back in a-fib, see clinical notes [employer] Attorney Required: No Is patient in pain?: No Allergies metoprolol (From Lopressor) Allergy (Intermediate, Verified 02/19/25 14:30) Shortness of breath bee venom protein (honey bee) (bee sting) Allergy (Mild, Verified 02/19/25 14:30) Swelling Penicillins Allergy (Verified 02/19/25 14:30) Rash Medications ???Medication ???Instructions ???Recorded ???Confirmed ???Type aspirin 81 mg tablet,delayed 81 mg PO DAILY@0800 heart health 0 12/06/16 02/19/25 History release cholecalciferol (vitamin D3) 50 50 mcg PO DAILY Supplement 1 02/19/25 History mcg (2,000 unit) tablet Disability Placard #1 ea 12/01/21 02/19/25 Rx Arthritis Compound 1 click topical DAILY PRN Pain #60 02/08/22 02/19/25 Rx CLICKS albuterol sulfate 90 mcg/actuation 2 puff inhalation Q4H PRN Asthma 04/28/23 02/19/25 Rx aerosol inhaler (Ventolin HFA) #8.5 grams nebulizer and compressor (Portable #1 ea 04/30/23 02/19/25 Rx Nebulizer System) khyavtim-aof-yczio acid 0.4 1 tab PO DAILY supplement 12/02/23 02/19/25 History mg-lycopene 300 mcg-lutein 250 mcg tablet (Centrum Silver) netarsudil 0.02 %-latanoprost 1 drp ophthalmic (eye) QHS Eye 02/19/25 History 0.005 % eye drops (Rocklatan) drops acetaminophen 500 mg tablet 1,000 mg (2 x 500 mg) PO Q6H PRN 0 12/30/23 02/19/25 Rx PRN Pain Score 1-10 #0 tabs albuterol sulfate 2.5 mg/3 mL 2.5 mg (3 mL) inhalation Q4-6H PRN 01/04/24 02/19/25 Rx (0.083 %) solution for nebulization shortness of breath or wheezing #90 mL hydrocortisone 2.5 % topical cream 1 applic [place] BID-QID PRN 01/04/24 02/19/25 Rx with perineal applicator hemorrhoids #30 grams cetirizine 10 mg tablet 10 mg PO DAILY PRN 01/23/24 History sennosides 8.6 mg-docusate sodium 1 tab-cap PO QHS 01/23/24 5 History 50 mg tablet (Senokot-S) nitroglycerin 0.4 mg sublingual 0.4 mg sublingual Q5-15M PRN chest 05/01/24 02/19/25 Rx tablet pain #25 tabs finasteride 5 mg tablet 5 mg PO DAILY BPH #90 tabs 4 02/19/25 Rx famotidine 20 mg tablet 20 mg PO DAILY GERD #90 tabs 09/1002/19/25 Rx atorvastatin 20 mg tablet 20 mg PO QHS cholesterol #90 tabs 10/22/24 02/19/25 Rx furosemide 20 mg tablet 20 mg PO QDAY #90 tabs 11/15/24 Rx potassium chloride 10 mEq 10 meq PO QDAY With Lasix #90 tabs 11/15/24 02/19/25 Rx tablet,extended release(part/cryst) brinzolamide 1 %-brimonidine 0.2 % (more content not included)... Normal [facility] Vitamin B12on 02-15-2025 Cobalamin (Vitamin B12) [Mass/Vol] 425 pg/mL Normal 180-914 [facility] Comment on above: Performed By: #### L 503.0106 #### [facility] [address] [place], [address] Absolute lymphocyte countOrd ered By: Addi Mario on 02-14-2025 Lymphocytes Auto (Unsp spec) [#/Vol] 2.30 10*3/uL 0.83-4.51 [facility] Absolute neutrophil countOrd ered By: Addi Mario on 02-14-2025 Neutrophils (Bld) [#/Vol] 4.7 10*3/uL 2.0-7.7 [facility] Anion gap in Serum or Plasma Ordered By: Addi Mario on 02-14-2025 Anion gap [Moles/Vol] 10 mmol/L 5-15 [facility] Automated lymphocyte count a s percentage of total leukocytesOrdered By: Addi Mario on 02-14-2025 Lymphocytes/100 WBC Auto (Unsp spec) 28.6 % 19-41 [facility] BUN/creatinine ratioOrdered By: Addi Mario on 02-14-2025 Urea nitrogen/Creatinine [Mass ratio] 23.1 mg/mg High 10-20 [facility] Basophil percentageOrdered B y: Addi Mario on 02-14-2025 Basophils/100 WBC (Bld) 0.5 % 0-1 [facility] Bilirubin, totalOrdered By: Addi Gerubina on 02-14-2025 Bilirubin [Mass/Vol] 0.37 mg/dL 0.00-1.30 [facility] CBC W/Diff, Automatedon 01-18 Absolute Lymph 2.30 X10 3/uL Normal 0.83-4.51 [facility] Comment on above: Performed By: #### L 501.9520, L506.0400, L500.4050, L100.0100, L501.5200 ####[facility] [address] [place], [address] Absolute Neut 4.7 X10 3/uL Normal 2.0-7.7 [facility] Comment on above: Performed By: #### L 501.9520, L506.0400, L500.4050, L100.0100, L501.5200 ####[facility] [address] [place], [address] Basophils/100 WBC (Bld) 0.5 % Normal 0-1 [facility] Comment on above: Performed By: #### L 501.9520, L506.0400, L500.4050, L100.0100, L501.5200 ####[facility] [address] [place], [address] Eosinophils/100 WBC (Bld) 2.6 % Normal 0-5 [facility] Comment on above: Performed By: #### L 501.9520, L506.0400, L500.4050, L100.0100, L501.5200 ####[facility] [address] [place], [address] Erythrocyte distribution width (RBC) [Ratio] 15.4 % High 11.6-14.6 [facility] Comment on above: Performed By: #### L 501.9520, L506.0400, L500.4050, L100.0100, L501.5200 ####[facility] [address] [place], [address] Hematocrit (Bld) [Volume fraction] 37.3 % Low 40-54 [facility] Comment on above: Performed By: #### L 501.9520, L506.0400, L500.4050, L100.0100, L501.5200 ####[facility] [address] [place], [address] Hemoglobin (Bld) [Mass/Vol] 12.0 g/dL Low 13.0-16.5 [facility] Comment on above: Performed By: #### L 501.9520, L506.0400, L500.4050, L100.0100, L501.5200 ####[facility] [address] [place], [address] IG% 0.100 Normal 0.0-0.9 [facility] Comment on above: Result Comment: IG% - Immature Granulocytes (promyelocytes, myelocytes and metamyelocytes) > 1% indicates that a LEFT SHIFT is Present. Performed By: #### L 501.9520, L506.0400, L500.4050, L100.0100, L501.5200 ####[facility] [address] [place], [address] Lymphocytes/100 WBC (Bld) 28.6 % Normal 19-41 [facility] Comment on above: Performed By: #### L 501.9520, L506.0400, L500.4050, L100.0100, L501.5200 ####[facility] [address] [place], [address] MCH (RBC) [Entitic mass] 31.4 pg Normal 27.0-32.0 [facility] Comment on above: Performed By: #### L 501.9520, L506.0400, L500.4050, L100.0100, L501.5200 ####[facility] [address] [place], [address] MCHC (RBC) [Mass/Vol] 32.2 g/dL Normal 32-36 [facility] Comment on above: Performed By: #### L 501.9520, L506.0400, L500.4050, L100.0100, L501.5200 ####[facility] [address] [place], [address] MCV (RBC) [Entitic vol] 97.6 fL High 80-94 [facility] Comment on above: Performed By: #### L 501.9520, L506.0400, L500.4050, L100.0100, L501.5200 ####[facility] [address] [place], [address] Monocytes/100 WBC (Bld) 9.7 % Normal 0-10 [facility] Comment on above: Performed By: #### L 501.9520, L506.0400, L500.4050, L100.0100, L501.5200 ####[facility] [address] [place], [address] Neutrophils/100 WBC (Bld) 58.5 % Normal 47-70 [facility] Comment on above: Performed By: #### L 501.9520, L506.0400, L500.4050, L100.0100, L501.5200 ####[facility] [address] [place], [address] Nucleated RBC (Bld) [#/Vol] 0 10*3/uL Normal 0-5 [facility] Comment on above: Performed By: #### L 501.9520, L506.0400, L500.4050, L100.0100, L501.5200 ####[facility] [address] [place], [address] Platelet mean volume (Bld) [Entitic vol] 11.5 fL Normal 6.2-12.0 [facility] Comment on above: Performed By: #### L 501.9520, L506.0400, L500.4050, L100.0100, L501.5200 ####[facility] [address] [place], [address] Platelets (Bld) [#/Vol] 153 10*3/uL Normal 150-450 [facility] Comment on above: Performed By: #### L 501.9520, L506.0400, L500.4050, L100.0100, L501.5200 ####[facility] [address] [place], [address] RBC (Bld) [#/Vol] 3.82 10*6/uL Low 4.6-6.2 [facility] Comment on above: Performed By: #### L 501.9520, L506.0400, L500.4050, L100.0100, L501.5200 ####[facility] [address] [place], [address] RDW SD 54.5 fl High 35.1-43.9 [facility] Comment on above: Performed By: #### L 501.9520, L506.0400, L500.4050, L100.0100, L501.5200 ####[facility] [address] [place], [address] WBC (Bld) [#/Vol] 8.0 10*3/uL Normal 4.4-11.0 [facility] Comment on above: Performed By: #### L 501.9520, L506.0400, L500.4050, L100.0100, L501.5200 ####[facility] [address] [place], [address] Carbon dioxide, total [Moles /volume] in Central venous bloodOrdered By: Addi Mario on 02-14-2025 CO2 [Moles/Vol] 27.8 mmol/L 21.0-32.0 [facility] Chloride assayOrdered By: Aleah Mario on 02-14-2025 Chloride [Moles/Vol] 101 mmol/L 98-108 [facility] Comprehensive Metabolic Prof ilon 02-14-2025 Albumin [Mass/Vol] 3.9 g/dL Normal 3.4-4.8 [facility] Comment on above: Performed By: #### L 501.9520, L506.0400, L500.4050, L100.0100, L501.5200 ####[facility] [address] [place], [address] Albumin/Globulin [Mass ratio] 1.0 {ratio} Normal 0.9-2.4 [facility] Comment on above: Performed By: #### L 501.9520, L506.0400, L500.4050, L100.0100, L501.5200 ####[facility] [address] [place], [address] ALK PHOS 88 U/L Normal 40-129 [facility] Comment on above: Performed By: #### L 501.9520, L506.0400, L500.4050, L100.0100, L501.5200 ####[facility] [address] [place], [address] ALT [Catalytic activity/Vol] 17 U/L Normal <=46 [facility] Comment on above: Performed By: #### L 501.9520, L506.0400, L500.4050, L100.0100, L501.5200 ####[facility] [address] [place], [address] AST [Catalytic activity/Vol] 28 U/L Normal <=37 [facility] Comment on above: Performed By: #### L 501.9520, L506.0400, L500.4050, L100.0100, L501.5200 ####[facility] [address] [place], [address] Bilirubin [Mass/Vol] 0.37 mg/dL Normal 0.00-1.30 [facility] Comment on above: Performed By: #### L 501.9520, L506.0400, L500.4050, L100.0100, L501.5200 ####[facility] [address] [place], [address] BUN/CRE 23.1 RATIO High 10-20 [facility] Comment on above: Performed By: #### L 501.9520, L506.0400, L500.4050, L100.0100, L501.5200 ####[facility] [address] [place], [address] Calcium [Mass/Vol] 9.8 mg/dL Normal 7.6-11.0 [facility] Comment on above: Performed By: #### L 501.9520, L506.0400, L500.4050, L100.0100, L501.5200 ####[facility] [address] [place], [address] Chloride [Moles/Vol] 101 mmol/L Normal 98-108 [facility] Comment on above: Performed By: #### L 501.9520, L506.0400, L500.4050, L100.0100, L501.5200 ####[facility] [address] [place], [address] CO2 [Moles/Vol] 27.8 mmol/L Normal 21.0-32.0 [facility] Comment on above: Performed By: #### L 501.9520, L506.0400, L500.4050, L100.0100, L501.5200 ####[facility] [address] [place], [address] Creatinine [Mass/Vol] 0.93 mg/dL Normal 0.70-1.20 [facility] Comment on above: Performed By: #### L 501.9520, L506.0400, L500.4050, L100.0100, L501.5200 ####[facility] [address] [place], [address] GAP 10 Normal 5-15 [facility] Comment on above: Performed By: #### L 501.9520, L506.0400, L500.4050, L100.0100, L501.5200 ####[facility] [address] [place], [address] GFR/1.73 sq M.predicted among non-blacks MDRD (S/P/Bld) [Vol rate/Area] 80 mL/min/{1.73_m2} Normal >60 [facility] Comment on above: Result Comment: mL/m in/1.73m2 CKD-EPI Creatinine Equation (2020) Performed By: #### L 501.9520, L506.0400, L500.4050, L100.0100, L501.5200 ####[facility] [address] [place], [address] Globulin (S) [Mass/Vol] 4.0 g/dL Normal 2.2-4.2 [facility] Comment on above: Performed By: #### L 501.9520, L506.0400, L500.4050, L100.0100, L501.5200 ####[facility] [address] [place], [address] Glucose [Mass/Vol] 94 mg/dL Normal 70-99 [facility] Comment on above: Performed By: #### L 501.9520, L506.0400, L500.4050, L100.0100, L501.5200 ####[facility] [address] [place], [address] Potassium [Moles/Vol] 4.0 mmol/L Normal 3.3-5.1 [facility] Comment on above: Performed By: #### L 501.9520, L506.0400, L500.4050, L100.0100, L501.5200 ####[facility] [address] [place], [address] Sodium [Moles/Vol] 138 mmol/L Normal 133-145 [facility] Comment on above: Performed By: #### L 501.9520, L506.0400, L500.4050, L100.0100, L501.5200 ####[facility] [address] [place], [address] T PROT 7.8 g/dL Normal 5.9-8.4 [facility] Comment on above: Performed By: #### L 501.9520, L506.0400, L500.4050, L100.0100, L501.5200 ####[facility] [address] [place], [address] Urea nitrogen [Mass/Vol] 21 mg/dL High 4-19 [facility] Comment on above: Performed By: #### L 501.9520, L506.0400, L500.4050, L100.0100, L501.5200 ####[facility] [address] [place], [address] Eosinophil percentageOrdered By: Addi Mario on 02-14-2025 Eosinophils/100 WBC (Bld) 2.6 % 0-5 [facility] Erythrocyte distribution wid th ratioOrdered By: Addi Mario on 02-14-2025 Erythrocyte distribution width (RBC) [Ratio] 15.4 % High 11.6-14.6 [facility] Erythrocyte distribution wid th standard deviationOrdered By: Arlethrileylilli Mario on 02-14-2025 Erythrocyte distribution width (RBC) [Ratio] 54.5 fl High 35.1-43.9 [facility] Glomerular filtration rate ( GFR) estimation/1.73 sq m using serum, plasma, or whole bOrdered By: Addi Mario on 02-14-2025 GFR/1.73 sq M.predicted among non-blacks MDRD (S/P/Bld) [Vol rate/Area] 80 mL/min/{1.73_m2} >60 [facility] Comment on above: mL/min/1.73m2 CKD-EP I Creatinine Equation (2020) Hematocrit Auto (Bld) [Volum e fraction]Ordered By: Addi Mario on 02-14-2025 Hematocrit (Bld) [Volume fraction] 37.3 % Low 40-54 [facility] Hemoglobin measurementOrdere d By: Addi Mario on 02-14-2025 Hemoglobin (Bld) [Mass/Vol] 12.0 g/dL Low 13.0-16.5 [facility] Immature granulocytes/100 WB C Auto (Bld)Ordered By: Addi Mario on 02-14-2025 Immature granulocytes/100 WBC (Bld) 0.100 % 0.0-0.9 [facility] Comment on above: IG% - Immature Granu locytes (promyelocytes, myelocytes and metamyelocytes) > 1% indicates that a LEFT SHIFT is Present. Internal Medicine Office Vis gayla 02-14-2025 Internal Medicine Office Visit [facility] [place], [place] [address] OFFICE VISIT Date of Service: 02/14/25 MR#: [id number] Acct: [id number] Name: JESSEE RUST Rep #: [id number] : 1935 Provider: Dr. Addi alvarado MD Age/Sex: 89/M Location: [facility] [place] Status: Signed Intake Vital Signs 11/15/24 15:09 12/14/24 08:21 02/14/25 14:27 Height 6 ft 6 ft 6 ft Weight: 219 lb 222 lb BMI 29.7 30.1 BP 147/74 H 124/78 H Blood Pressure Location Rt brachial Lt brachial Position Sitting Sitting Respiration 20 H 16 Pulse 59 L 60 Pulse Source Monitor Monitor Temp 96.7 F L 98 F Temp Source Temporal Pulse Oximetry (%) 98 96 Oxygen Delivery Method room air room air Intake Visit Reasons: 3 M FU Chief Complaint: Follow-up chronic conditions [employer] Attorney Required: No Is patient in pain?: No Allergies metoprolol (From Lopressor) Allergy (Intermediate, Verified 02/14/25 14:10) Shortness of breath bee venom protein (honey bee) (bee sting) Allergy (Mild, Verified 02/14/25 14:10) Swelling Penicillins Allergy (Verified 02/14/25 14:10) Rash Medications ???Medication ???Instructions ???Recorded ???Confirmed ???Type aspirin 81 mg tablet,delayed 81 mg PO DAILY@0800 heart health 0 12/06/16 02/14/25 History release cholecalciferol (vitamin D3) 50 50 mcg PO DAILY Supplement 1 02/14/25 History mcg (2,000 unit) tablet Disability Placard #1 ea 12/01/21 02/14/25 Rx Arthritis Compound 1 click topical DAILY PRN Pain #60 02/08/22 02/14/25 Rx CLICKS albuterol sulfate 90 mcg/actuation 2 puff inhalation Q4H PRN Asthma 04/28/23 02/14/25 Rx aerosol inhaler (Ventolin HFA) #8.5 grams nebulizer and compressor (Portable #1 ea 04/30/23 02/14/25 Rx Nebulizer System) biizatec-ctm-ecgnx acid 0.4 1 tab PO DAILY supplement 12/02/23 02/14/25 History mg-lycopene 300 mcg-lutein 250 mcg tablet (Centrum Silver) netarsudil 0.02 %-latanoprost 1 drp ophthalmic (eye) QHS Eye 02/14/25 History 0.005 % eye drops (Rocklatan) drops acetaminophen 500 mg tablet 1,000 mg (2 x 500 mg) PO Q6H PRN 0 12/30/23 02/14/25 Rx PRN Pain Score 1-10 #0 tabs albuterol sulfate 2.5 mg/3 mL 2.5 mg (3 mL) inhalation Q4-6H PRN 01/04/24 02/14/25 Rx (0.083 %) solution for nebulization shortness of breath or wheezing #90 mL hydrocortisone 2.5 % topical cream 1 applic NJ BID-QID PRN 01/04/24 02/14/25 Rx with perineal applicator hemorrhoids #30 grams cetirizine 10 mg tablet 10 mg PO DAILY PRN 01/23/24 History sennosides 8.6 mg-docusate sodium 1 tab-cap PO QHS 01/23/24 5 History 50 mg tablet (Senokot-S) nitroglycerin 0.4 mg sublingual 0.4 mg sublingual Q5-15M PRN chest 05/01/24 02/14/25 Rx tablet pain #25 tabs finasteride 5 mg tablet 5 mg PO DAILY BPH #90 tabs 4 02/14/25 Rx famotidine 20 mg tablet 20 mg PO DAILY GERD #90 tabs 09/1002/14/25 Rx atorvastatin 20 mg tablet 20 mg PO QHS cholesterol #90 tabs 10/22/24 02/14/25 Rx furosemide 20 mg tablet 20 mg PO QDAY #90 tabs 11/15/24 Rx potassium chloride 10 mEq 10 meq PO QDAY With Lasix #90 tabs 11/15/24 02/14/25 Rx tablet,extended release(part/cryst) brinzolamide 1 %-brimonidine 0.2 % 1 drp ophthalmic (eye) 12/14/24 02/14/25 History eye drops,suspension (Simbrinza) budesonide-formoter ol HFA 160 2 puff inhalation BID Asthma #1 ea 12/14/24 02/14/25 Rx mcg-4.5 mcg/actuation aerosol inhaler (Symbicort) ferrous sulfate 325 mg (65 mg 325 mg PO QODAY Supplement #90 tab s 02/05/25 02/14/25 Rx iron) tablet ursodiol 500 mg tablet 500 mg PO BID #180 tabs 02/14/25 0 02/14/25 Rx Have you fallen in the past year?: No [facility] History Immunity status testing Sore throat Exposure to COVID-19 virus Swallowing disorder Perianal dermatitis CHF (congestive heart failure) Ureteral calculi Cardiomyopathy Mitral regurgitation Rheumatoid arthritis Non-smoker Hypertension Atrial fibrillation Migraines Sepsis Non-STEMI (non-ST elevated myocardial infarction) Paroxysmal atrial fibrillation Extensor tenosynovitis of right wrist Advanced directives, counseling/discussi on Anemia Left facial swelling Aortic stenosis New onset atrial fibrillation Vitamin D deficiency Obesity Restrictive airway disease Asthma Dermatitis Memory impairment Right foot pain Dizziness History of skin cancer Liver disease History of pneumonia Rheumatoid arthritis Seasonal allergies Fracture of triquetrum of right wrist Fracture of triquetrum of left wrist Closed vertical fracture of left patella History of colon polyps Orthostatic hypotension Iron deficiency anemia Sinus bradycardia Glaucoma Physical debility (more content not included)... Normal [facility] Laboratory - Chemistry and C hemistry - challengeOrdered By: Addi Mario on 02-14-2025 AST [Catalytic activity/Vol] 28 U/L <38 [facility] MCV (mean corpuscular volume ) determinationOrdered By: Addi Mario on 02-14-2025 MCV (RBC) [Entitic vol] 97.6 fL High 80-94 [facility] Magnesiumon 02-14-2025 Magnesium [Mass/Vol] 2.1 mg/dL Normal 1.5-2.2 [facility] Comment on above: Performed By: #### L 501.9520, L506.0400, L500.4050, L100.0100, L501.5200 ####[facility] [id number] [place], [place], [id number] Magnesium measurement (mass/ volume)Ordered By: Addi Mario on 02-14-2025 Magnesium (Unsp spec) [Mass/Vol] 2.1 mg/dL 1.5-2.2 [facility] Mean corpuscular hemoglobin (MCH) determinationOrdered By: Addi Mario on 02-14-2025 MCH (RBC) [Entitic mass] 31.4 pg 27.0-32.0 [facility] Mean corpuscular hemoglobin concentration (MCHC) determinationOrdered By: Addi Mario on 02-14-2025 MCHC (RBC) [Mass/Vol] 32.2 g/dL 32-36 [facility] Mean platelet volume determi nationOrdered By: Addi Mario on 02-14-2025 Platelet mean volume (Bld) [Entitic vol] 11.5 fL 6.2-12.0 [facility] Monocyte percentageOrdered B y: Addi Mario on 02-14-2025 Monocytes/100 WBC (Bld) 9.7 % 0-10 [facility] Neutrophil percentageOrdered By: Addi Mario on 02-14-2025 Neutrophils/100 WBC (Bld) 58.5 % 47-70 [facility] Nucleated red blood cell per centageOrdered By: Addi Mario on 02-14-2025 Nucleated RBC/100 WBC (Bld) [Ratio] 0 % 0-5 [facility] Platelet countOrdered By: Aleah Mario on 02-14-2025 Platelets (Bld) [#/Vol] 153 10*3/uL 150-450 [facility] Potassium measurement (mass/ volume)Ordered By: Addi Mario on 02-14-2025 Potassium (Unsp spec) [Mass/Vol] 4.0 mmol/L 3.3-5.1 [facility] RBC Auto (Bld) [#/Vol]Ordere d By: Addi Mario on 02-14-2025 RBC (Bld) [#/Vol] 3.82 10*6/uL Low 4.6-6.2 [facility] Serum creatinine measurement (mass/volume)Ordered By: Addi Mario on 02-14-2025 Creatinine [Mass/Vol] 0.93 mg/dL 0.70-1.20 [facility] Serum globulin measurementOr dered By: Addi Mario on 02-14-2025 Globulin (S) [Mass/Vol] 4.0 g/dL 2.2-4.2 [facility] Serum glucose measurement (m ass/volume)Ordered By: Addi Mario on 02-14-2025 Glucose [Mass/Vol] 94 mg/dL 70-99 [facility] Serum or plasma alanine castellano otransferase (ALT) measurementOrdered By: Addi Mario on 02-14-2025 ALT [Catalytic activity/Vol] 17 U/L <47 [facility] Serum or plasma albumin tay urement (mass/volume)Ordered By: Aleahzackerykajal Joorubina on 02-14-2025 Albumin [Mass/Vol] 3.9 g/dL 3.4-4.8 [facility] Serum or plasma albumin/glob ulin mass ratioOrdered By: Addi Gecarissamaria del carmen on 02-14-2025 Albumin/Globulin [Mass ratio] 1.0 {ratio} 0.9-2.4 [facility] Serum or plasma alkaline lyndsey sphatase measurementOrdered By: josh Gecarissamaria del carmen on 02-14-2025 ALP [Catalytic activity/Vol] 88 U/L 40-129 [facility] Serum or plasma calcium tay urement (mass/volume)Ordered By: Aleahjosh Gerubina on 02-14-2025 Calcium [Mass/Vol] 9.8 mg/dL 7.6-11.0 [facility] Serum or plasma urea nitroge n measurement (mass/volume)Ordered By: Addi Gecarissamaria del carmen on 02-14-2025 Urea nitrogen [Mass/Vol] 21 mg/dL High 4-19 [facility] Sodium levelOrdered By: Arleth rdz Joorubina on 02-14-2025 Sodium [Moles/Vol] 138 mmol/L 133-145 [facility] T4 Free Directon 02-14-2025 T4 FREE DIRECT 1.10 ng/dL Normal 0.76-1.46 [facility] Comment on above: Performed By: #### L 501.9520, L506.0400, L500.4050, L100.0100, L501.5200 ####[facility] [id number] [place], [address] T4 freeOrdered By: Addi Mario on 02-14-2025 Free T4 [Mass/Vol] 1.10 ng/dL 0.76-1.46 [facility] TSH DL <= 0.005 mIU/L QnOrde red By: Addi Mario on 02-14-2025 TSH Qn 2.190 uIU/mL 0.300-4.200 [facility] Thyroid Stim Hormone (TSH)on 02-14-2025 TSH 2.190 uIU/mL Normal 0.300-4.200 [facility] Comment on above: Performed By: #### L 501.9520, L506.0400, L500.4050, L100.0100, L501.5200 ####[facility] [address] [place], [address] Total proteinOrdered By: Sonny latialilli Mario on 02-14-2025 Protein [Mass/Vol] 7.8 g/dL 5.9-8.4 [facility] Vitamin B12 ser/plasOrdered By: Arlethrileylilli Mario on 02-14-2025 Cobalamin (Vitamin B12) [Mass/Vol] 425 pg/mL 180-914 [facility] White blood cell (WBC) count Ordered By: Arlethrileylilli Mario on 02-14-2025 WBC (Bld) [#/Vol] 8.0 10*3/uL 4.4-11.0 [facility] Modified Barium Swallow Stud yon 01-02-2025 Modified Barium Swallow Study [facility] Speech Pathology [address] [place] [address] Modified Barium Swallow Study MR#: [id number] Acct: [id number] Name: JESSEE RUST Rep #: [id number] : 1935 89 From: Jodee Miller M.A. [facility] [employer] OFFICER Modified Barium Swallow Patient Information Study Date: 01/02/25 Study Time: 13:00 Direct Billable Minutes: 73 Total Minutes procedure reportin Diagnosis: Dysphagia R13.10 Referring Physician: Addi Mario Reason for Referral: Assess swallow function, assess risk for aspiration, and determine recommendations for least restrictive diet textures and dysphagia interventions. Medical History: PMH: Sore throat, Exposure to COVID-19 virus, Swallowing disorder, CHF, RA, HTN, A fib, Sepsis, Non- STEMI, Migraines, Restrictive airway disease, Asthma, Memory impairment, History of pneumonia, Orthostatic hypotension, Physical debility, HLD (See EMR for full PMH). The patient reports swallowing difficulty characterized by feeling as if he can't swallow. This issue began 2-3 months ago. He reports his swallowing difficulty is very episodic, and it has not occurred for the past 3 weeks once he began taking smaller bites. His PCP referred him for MBSS to further assess swallowing difficulty. Current Diet Ordered: Regular textures / Thin liquids Dentition: Natural Teeth Mental Status: Impaired (Hx of memory impairment, did not impact participation in this exam) Respiratory Status: Oxygenating on Room Air Penetration-Aspirat ion Scale Penetration-Aspirat ion Scale: OBJECTIVE ASSESSMENT OF SWALLOW FUNCTION (QUANTITATIVE ??? PER TRIAL): PENETRATION / ASPIRATION SCALE (VILLALOBOS): 1 = does not enter airway 2 = enters airway/above vocal folds/ejected 3 = enters airway/above vocal folds/not ejected 4 = enters airway/contacts vocal folds/ejected 5 = enters airway/contacts vocal folds/not ejected 6 = enters airway/below vocal folds/ejected 7 = enters airway/below vocal folds/not ejected despite effort 8 = enters airway/below vocal folds/no effort VIDEOFLOROSCOPIC SCALE SCORE (VILLALOBOS): Grade I = aspiration of material that has penetrated into the laryngeal vestibule, intact cough reflex Grade II = aspiration < 10 % of the bolus, intact cough reflex Grade III = aspiration of < 10 % of the bolus, reduced cough reflex or aspiration of > 10 % of the bolus, intact cough reflex Grade IV = aspiration of > 10 % of the bolus, reduced cough reflex Penetration-Aspirat ion Scale Score Thin Liquid via teaspoon: Result: 1= does not enter airway Thin Liquid via teaspoon Trial 2: Result: 1= does not enter airway Thin Liquid via large single sip: cup: Result: 1= does not enter airway [place] Thick Liquid via large single sip: cup: Result: 1= does not enter airway Thin Liquid via sequential sips: cup: Result: 1= does not enter airway Comment: Esophageal screen - Retention in the lower esophagus w/ minimal retrograde flow. Pudding via teaspoon: Result: 1= does not enter airway Comment: Esophageal screen - Retention in the lower esophagus w/ min retrograde flow to the middle esophagus. Thin Liquid via sequential sips:straw: Result: 1= does not enter airway Comment: Esophageal screen - Liquid barium wash mostly cleared barium through the esophagus. Minimal retention of liquid barium in the lower esophagus after the swallow. 1/2 Cookie: Result: 1= does not enter airway Comment: Esophageal screen - Retention in the lower esophagus w/ retrograde flow to the middle esophagus. Thin Liquid via single sip: straw: Result: 1= does not enter airway Comment: Esophageal screen - Liquid wash fully cleared cookie retention. Mild retention of liquid in lower esophagus. Oral Phase Labial Seal: No Labial Escape Tongue Control During Bolus Hold: Escape to lateral buccal cavity/floor of mouth (large sips) Bolus Preparation/Mastica tion: Timely and efficient chewing and mashing Bolus Transport/Lingual Motion: Delayed initiation of tongue motion Oral Residue: Trace residue lining oral structures Pharyngeal Phase Initiation of Pharyngeal Swallow: Bolus head in pyriforms Soft Palate Elevation: Trace column of contrast/air between soft palate and pharyngeal wall Laryngeal Elevation: Comp. Superior move thyroid cart w/comp. apprx arytenoid cart-epig pet Anterior Hyoid Excursion: Partial anterior movement Epiglottic Movement: Complete inversion Laryngeal Vestibule Closure at Height of Swallow: Complete; no air/contrast in laryngeal vestibule Pharyngeal Stripping Wave: Present - complete Pharyngoesophageal Segment Opening: Parital distension and partial duration; parital obstruction of flow Tongue Base Retraction: Narrow column of contrast between tongue base post. pharyngeal wall Pharyngeal Residue: Trace residue within or on pharyngeal structures Esophageal Phase Esophageal Clearance: Esophageal retention w/ retrograde flow below phary (more content not included)... Normal [facility] Rubeola IgG Abon 12-29-2024 RUBEOLA Ab, IgG > 300.0 Normal Immune >16.4 [facility] Comment on above: Result Comment: Nega tive <13.5 Equivocal 13.5 - 16.4 Positive >16.4 Presence of antibodies to Rubeola is presumptive evidence of immunity except when acute infection is suspected. Performed at: - [facility] [id number] Property Master: Herber Lindquist PhD, Phone: [phone] Performed By: #### L 3102.7844, L503.0106 #### [facility] [address] [place], [address] MeV IgG IA Qn (S)Ordered By: Addi Mario on 12-27-2024 Rubeola (Measles) IgG Antibody > 300.0 AU/mL Immune >16.4 [facility] Comment on above: Negative <13.5 Equiv ocal 13.5 - 16.4 Positive >16.4Presence of antibodies to Rubeola is presumptive evidenceof immunity except when acute infection is suspected.Performed at: [facility] [id number] Director: Herber Lindquist PhD, Phone: [phone] Serum measles virus IgG anti body assay by immunoassay (units/volume)Ordered By: Addi Mario on 12-27-2024 MeV IgG IA Qn (S) > 300.0 AU/mL Immune >16.4 [facility] Comment on above: Negative <13.5 Equiv ocal 13.5 - 16.4 Positive >16.4Presence of antibodies to Rubeola is presumptive evidenceof immunity except when acute infection is suspected.Performed at: [facility] [id number] Director: Herber Lindquist PhD, Phone: [phone] Vitamin B12on 12-27-2024 Cobalamin (Vitamin B12) [Mass/Vol] 512 pg/mL Normal 180-914 [facility] Comment on above: Performed By: #### L 3100.3300, L503.0106 #### [facility] [address] [place], [place], [address] Vitamin B12 ser/plasOrdered By: Addi Mario on 12-27-2024 Cobalamin (Vitamin B12) [Mass/Vol] 512 pg/mL 180-914 [facility] Pulmonary Visit Reporton Pulmonary Visit Report [facility] [address] [place], [place] [address] OFFICE VISIT Date of Service: 12/14/24 MR#: [id number] Acct: [id number] Name: JESSEE RSUT Rep #: [id number] : 1935 Provider: HUAN Sharma Age/Sex: 89/M Location: [facility] [place].PMW Status: Signed Assessment and Plan Assessment and Plan (1) Asthma: Status: Chronic Qualifiers: Asthma severity: unspecified severity Asthma persistence: unspecified Asthma complication type: uncomplicated Qualified Code(s): J45.909 - Unspecified asthma, uncomplicated Plan: Stable, he displays no signs of exacerbation of asthma today. He had some rhonchi that cleared with cough. He does not feel it is necessary for prednisone today however, given that he was just diagnosed with COVID 2 weeks ago, if symptoms do not continue to improve he can contact our office and I would place him on a short course of prednisone. No change in maintenance medications, symptomatically controlled with the use of Symbicort and cetirizine. No additional testing at this time. Contact the office with any signs of new or worsening symptoms. Follow-up in 6 months. (2) CHF (congestive heart failure): Status: Chronic Qualifiers: Heart failure type: systolic Heart failure chronicity: chronic Qualified Code(s): I50.22 - Chronic systolic (congestive) heart failure Plan: Complicates exam, plan, care and prognosis. Medications: Refilled budesonide-formoter ol 160-4.5 mcg/actuation (Symbicort) administer with spacer, rinse mouth after each use 2 puffs inhalation BID 1 ea 11RF Asthma Plan Details Follow Up: 6 Months HPI 6 M FU Chief Complaint: Routine follow-up HPI Comments Details: This patient presents to the office today to discuss test results. He is ambulatory with use of a wheeled walker. He is currently on room air. He has not recently been seen in the ED or urgent care for any respiratory illness. He was diagnosed with COVID 2 weeks ago by his PCP. He was treated with Paxlovid. He was not treated with antibiotics or steroids. He is a lifelong never smoker. He is compliant with Symbicort 2 puffs twice daily. He does report rinsing his mouth out thoroughly after each use. He denies any medication side effect such as sore throat or thrush. He is compliant with cetirizine daily. He uses the antihistamine spring through fall. He has occasionally utilized his nebulizer for cough. He denies any shortness of breath. He reports a moist sounding cough, but denies any sputum production or hemoptysis. He has occasional wheezing and chest tightness but denies any chest pain or palpitations. He has not had any fever, chills or body aches. Intake Vital Signs 06/14/24 08:21 12/14/24 08:21 Height 6 ft 6 ft Weight: 219 lb BMI 29.7 BP 147/74 H Blood Pressure Location Rt brachial Position Sitting Respiration 20 H Pulse 59 L Pulse Source Monitor Temp 96.7 F L Temperature Source Temporal Artery Pulse Oximetry (%) 98 Oxygen Delivery Method room air Intake Visit Reasons: 6 M Trust And Estates Attorney Required: No Accompanied by: Self Allergies metoprolol (From Lopressor) Allergy (Intermediate, Verified 12/14/24 13:31) Shortness of breath bee venom protein (honey bee) (bee sting) Allergy (Mild, Verified 12/14/24 13:31) Swelling Penicillins Allergy (Verified 12/14/24 13:31) Rash Medications ???Medication ???Instructions ???Recorded ???Confirmed ???Type aspirin 81 mg tablet,delayed 81 mg PO DAILY@0800 heart health 0 12/06/16 12/14/24 History release cholecalciferol (vitamin D3) 50 50 mcg PO DAILY Supplement 1 12/14/24 History mcg (2,000 unit) tablet Disability Placard #1 ea 12/01/21 11/15/24 Rx Arthritis Compound 1 click topical DAILY PRN Pain #60 02/08/22 12/14/24 Rx CLICKS albuterol sulfate 90 mcg/actuation 2 puff inhalation Q4H PRN Asthma 04/28/23 12/14/24 Rx aerosol inhaler (Ventolin HFA) #8.5 grams nebulizer and compressor (Portable #1 ea 04/30/23 11/15/24 Rx Nebulizer System) dzkrszwg-eis-ggozl acid 0.4 1 tab PO DAILY supplement 12/02/23 12/14/24 History mg-lycopene 300 mcg-lutein 250 mcg tablet (Centrum Silver) netarsudil 0.02 %-latanoprost 1 drp ophthalmic (eye) QHS Eye 12/14/24 History 0.005 % eye drops (Rocklatan) drops acetaminophen 500 mg tablet 1,000 mg (2 x 500 mg) PO Q6H PRN 0 12/30/23 12/14/24 Rx PRN Pain Score 1-10 #0 tabs albuterol sulfate 2.5 mg/3 mL 2.5 mg (3 mL) inhalation Q4-6H PRN 01/04/24 12/14/24 Rx (0.083 %) solution for nebulization shortness of breath or wheezing #90 mL hydrocortisone 2.5 % topical cream 1 applic NJ BID-QID PRN 01/04/24 12/14/24 Rx with perineal applicator hemorrhoids #30 grams cetirizine 10 mg tablet 10 mg PO DAILY PRN (more content not included)... Normal [facility] No Panel InformationOrdered By: Addi Mario on 11-30-2024 POC SARS CoV-2 Antigen Positive [facility] Office Visit Reporton 2024 Office Visit Report [facility] [address] [place] [address] OFFICE VISIT Date of Service: 11/30/24 MR#: [id number] Acct: [id number] Patient: JESSEE RUST Rep #: [id number] : 1935 Provider: VANNESSA NURSE Age/Sex: 89/M Location: [facility] [place] RUE Status: Signed Intake Vital Signs 11/15/24 15:09 Height 6 ft Weight: 219 lb BMI 29.7 BP 130/60 H Blood Pressure Location Lt brachial Position Sitting Respiration 18 Pulse 60 Pulse Source Monitor Temp 96.8 F L Temp Source Temporal Pulse Oximetry (%) 99 Oxygen Delivery Method room air Intake Visit Reasons: covid test Chief Complaint: covid test Allergies metoprolol (From Lopressor) Allergy (Intermediate, Verified 11/15/24 15:06) Shortness of breath bee venom protein (honey bee) (bee sting) Allergy (Mild, Verified 11/15/24 15:06) Swelling Penicillins Allergy (Verified 11/15/24 15:06) Rash Have you fallen in the past year?: No Results POC SARS AG POC SARS AG Positive Last Edit by Erendira Restrepo LPN on 11/30/24 13:52 Assessment and Plan Assessment and Plan (1) Exposure to COVID-19 virus: Status: Acute (2) Sore throat: Status: Acute Orders: Orders POC Rapid SARS Antigen Today U07.1 - COVID-19 Clinical Quality Measures Falls Risk Screening/Assistive Devices Have you fallen in the past year?: No 11/30/24 1411 Date Addi Mario MD Cosigner Signature: Date (if applicable) CC: Normal [facility] 11-27-2024 CNPN Telephone (OPHTMN) ---- JESSEE RUST ([id number]) 1935 M Date Time Provider Department 11/27/24 ALEXIS GREEN During your visit today, we recorded the following information about you: Alexis Green MD 11/27/2024 9:48 PM Signed Received page that patient had called. Spoke to them on the phone at 9:43 PM. Patient has a history of POAG. JUAN with Dr. Shea 11/26/24 where Brimonidine was switched to simbrinza Patient reports significant burning when he applied the simbrinza for ~ 7 minutes. Discussed burning may improve overtime. Advised to try putting drops in the fridge so they are chilled prior to application and also lubricating eyes 10 minutes prior to applying the drops. Discussed if he cannot tolerate the burning after a few days to call Dr. Shea's office to discuss alternative measures Alexis Green MD Ophthalmology Resident Allergies As of Date: 11/27/2024 Noted Allergy Reaction BETA-BLOCKERS (BETA-ADRENERGIC BL*01/28/2020 14 - Other: See Comments 12 - Shortness of Breath AMLODIPINE 12/16/2015 14 - Other: See Comments Comments: fatigue,lightheaded LIPITOR (ATORVASTATIN CALCIUM) 02/08/2011 5 - Intolerance Comments: pvc, enzyme elevation long haired dogs and cats [Other] 11/21/2006 METOPROLOL 11/07/2023 16 - Unknown MOLD 11/21/2006 PENICILLINS 07/01/1970 4 - Hives Comments: Had hives in the 70's Date Reviewed: 11/26/2024 Reviewed by: Adela Jarquin OA - Fully Assessed Prescriptions as of 11/27/2024 - brinzolamide-brimon idine (SIMBRINZA) 1%-0.2 % Ophth Susp Use 1 Drop in both eyes two times a day. - trimethoprim-polymy skip (POLYTRIM) 10,000 unit- 1 mg/mL ophthalmic solution - brimonidine (ALPHAGAN P) 0.1 % drop Use 1 Drop in both eyes three times a day. - ROCKLATAN 0.02-0.005 % ophthalmic solution Use 1 Drop in both eyes daily at bedtime. - furosemide (LASIX) 40 mg tablet Take 1 tablet by mouth every afternoon. - carvedilol (COREG) 6.25 mg tablet Take 25 mg by mouth two times a day with meals. - potassium chloride ER (KLOR-CON M10) 10 mEq tablet Take 10 mEq by mouth once daily. - predniSONE (DELTASONE) 10 mg tablet take 4 tablets by mouth daily for 3 days then 3 daily for 3 days ... (REFER TO PRESCRIPTION NOTES). - ferrous sulfate 325 mg (65 mg iron) tablet Take 1 tablet by mouth every 48 hours. - famotidine (PEPCID) 20 mg tablet Take 1 tablet by mouth once daily. - apixaban (ELIQUIS) 5 mg tab(s) Take 1 tablet by mouth two times a day. - budesonide-formoter ol (SYMBICORT) 160-4.5 mcg/actuation inhaler inhale 2 puffs by mouth once daily - clobetasol (TEMOVATE) 0.05 % cream apply 1 APPLICATION topically once daily if needed for rash - loteprednol etabonate (EYSUVIS) 0.25 % drps Use 1 Drop in eyes as needed. - propylene glycol/peg 400 (SYSTANE FREE, PF, OPHTHALMIC) Use 1 Drop in eyes as needed. - ursodiol (DANNIELLE) 250 mg tablet Take 2 tablets by mouth twice daily. - ezetimibe (ZETIA) 10 mg tablet TAKE ONE TABLET BY MOUTH EVERY DAY - atorvastatin (LIPITOR) 40 mg tablet Take 1 tablet by mouth daily at bedtime. For cholesterol. - ticagrelor (BRILINTA) 90 mg tablet Take 90 mg by mouth two times a day. - lisinopril 2.5 mg tablet Take 2.5 mg by mouth once daily. - omeprazole (PRILOSEC) 20 mg capsule Take 20 mg by mouth daily before breakfast. 1/2 hr before meal. - nitroglycerin sublingual (NITROQUICK) 0.4 mg SL tablet Dissolve 1 tablet under the tongue every 5 minutes as needed for Chest Pain (Max of 3 tabs.). - albuterol HFA (PROAIR HFA) 90 mcg/actuation inhaler Inhale 2 Puffs as instructed every 4 hours as needed for Wheezing/Shortness of Breath. - baclofen (LIORESAL) 10 mg tablet Take 1 tablet by mouth three times daily as needed (muscle spasms). - ibuprofen (MOTRIN) 200 mg tablet Take 1 tablet by mouth twice daily. For back pain. - Magnesium Hydroxide (CORNEJO MILK OF MAGNESIA) 311 mg chew 2-4 tablets at bedtime for constipation. - pimecrolimus (ELIDEL) 1 % cream Apply to affected areas of dermatitis and/or psoriasis rash on eyelids or central face twice daily until clear as tolerated. Taper as able when clear - pediatric multivitamin plus minerals with iron chewable (FLINTSTONES COMPLETE, IRON,) chewable tablet Take 1 tablet by mouth twice daily. - hydrocortisone 2.5 % cream Apply 1 application to affected area twice daily. - mometasone (ELOCON) 0.1 % cream APPLY TO AFFECTED AREA(S) PSORIASIS ON ELBOWS AND EARS QDAY TO BID PRN AND THEN TAPER OFF ABLE. AVOID FACE, EYES, EYELIDS, AND DEEP FOLD AREAS. - cetirizine (ZYRTEC) 10 mg tablet Take 1 tablet by mouth once daily. - FINASTERIDE 5 MG TAB Take one(1) tablet daily. - ASPIRIN 81 MG TAB Take one(1) tablet daily. Problem List As Of Date 11/27/2024 Noted Resolved Mixed hyperlipidemia [E78.2] 11/21/2006 Essential hypertension [I10] 11/21/2006 OVERWEIGHT [E66.9] (more content not included)... Normal [facility] OCT OPTIC NERVE CIRRUS OU (B OTH EYES)on 11-26-2024 [facility] Radiology Study observation (narrative) [facility] Absolute lymphocyte countOrd ered By: Addi Mario on 11-15-2024 Lymphocytes Auto (Unsp spec) [#/Vol] 2.07 10*3/uL 0.83-4.51 [facility] Absolute neutrophil countOrd ered By: zackeryrileylilli Mario on 11-15-2024 Neutrophils (Bld) [#/Vol] 4.5 10*3/uL 2.0-7.7 [facility] Automated lymphocyte count a s percentage of total leukocytesOrdered By: Addi Maroi on 11-15-2024 Lymphocytes/100 WBC Auto (Unsp spec) 27.1 % - [facility] BUN/creatinine ratioOrdered By: Addi Mario on 11-15-2024 Urea nitrogen/Creatinine [Mass ratio] 19.3 mg/mg - [facility] Basic Metabolic Profile (BMP )on 11-15-2024 Anion gap [Moles/Vol] 8 mmol/L Normal - [facility] Comment on above: Performed By: #### L 503.6550, L503.6150, L500.4100, L503.6075, L100.0100, L500.2500 ####[facility] [address] [place], [address] BUN/CRE 19.3 RATIO Normal - [facility] Comment on above: Performed By: #### L 503.6550, L503.6150, L500.4100, L503.6075, L100.0100, L500.2500 ####[facility] [address] [place], [address] Calcium [Mass/Vol] 9.6 mg/dL Normal 7.6-11.0 [facility] Comment on above: Performed By: #### L 503.6550, L503.6150, L500.4100, L503.6075, L100.0100, L500.2500 ####[facility] [address] [place], [address] Chloride [Moles/Vol] 102 mmol/L Normal 96-108 [facility] Comment on above: Performed By: #### L 503.6550, L503.6150, L500.4100, L503.6075, L100.0100, L500.2500 ####[facility] [address] [place], [address] CO2 [Moles/Vol] 28.4 mmol/L Normal 22.0-29.0 [facility] Comment on above: Performed By: #### L 503.6550, L503.6150, L500.4100, L503.6075, L100.0100, L500.2500 ####[facility] [address] [place], [address] Creatinine [Mass/Vol] 0.86 mg/dL Normal 0.70-1.20 [facility] Comment on above: Performed By: #### L 503.6550, L503.6150, L500.4100, L503.6075, L100.0100, L500.2500 ####[facility] [address] [place], [address] GFR/1.73 sq M.predicted among non-blacks MDRD (S/P/Bld) [Vol rate/Area] 84 mL/min/{1.73_m2} Normal >60 [facility] Comment on above: Result Comment: mL/m in/1.73m2 CKD-EPI Creatinine Equation (2020) Performed By: #### L 503.6550, L503.6150, L500.4100, L503.6075, L100.0100, L500.2500 ####[facility] [address] [place], [address] Glucose [Mass/Vol] 87 mg/dL Normal 70-99 [facility] Comment on above: Performed By: #### L 503.6550, L503.6150, L500.4100, L503.6075, L100.0100, L500.2500 ####[facility] [address] [place], [address] Potassium [Moles/Vol] 4.4 mmol/L Normal 3.3-5.1 [facility] Comment on above: Performed By: #### L 503.6550, L503.6150, L500.4100, L503.6075, L100.0100, L500.2500 ####[facility] [address] [place], [address] Sodium [Moles/Vol] 139 mmol/L Normal 133-145 [facility] Comment on above: Performed By: #### L 503.6550, L503.6150, L500.4100, L503.6075, L100.0100, L500.2500 ####[facility] [address] [place], [address] Urea nitrogen [Mass/Vol] 17 mg/dL Normal 4-19 [facility] Comment on above: Performed By: #### L 503.6550, L503.6150, L500.4100, L503.6075, L100.0100, L500.2500 ####[facility] [address] [place], [address] Basophil percentageOrdered B y: Addi Mario on 11-15-2024 Basophils/100 WBC (Bld) 0.5 % 0-1 [facility] CBC W/Diff, Automatedon 10-21 Absolute Lymph 2.07 X10 3/uL Normal 0.83-4.51 [facility] Comment on above: Performed By: #### L 503.6550, L503.6150, L500.4100, L503.6075, L100.0100, L500.2500 ####[facility] [address] [place], [address] Absolute Neut 4.5 X10 3/uL Normal 2.0-7.7 [facility] Comment on above: Performed By: #### L 503.6550, L503.6150, L500.4100, L503.6075, L100.0100, L500.2500 ####[facility] [address] [place], [address] Basophils/100 WBC (Bld) 0.5 % Normal 0-1 [facility] Comment on above: Performed By: #### L 503.6550, L503.6150, L500.4100, L503.6075, L100.0100, L500.2500 ####[facility] [address] [place], [address] Eosinophils/100 WBC (Bld) 2.2 % Normal 0-5 [facility] Comment on above: Performed By: #### L 503.6550, L503.6150, L500.4100, L503.6075, L100.0100, L500.2500 ####[facility] [address] [place], [address] Erythrocyte distribution width (RBC) [Ratio] 14.4 % Normal 11.6-14.6 [facility] Comment on above: Performed By: #### L 503.6550, L503.6150, L500.4100, L503.6075, L100.0100, L500.2500 ####[facility] [address] [place], [address] Hematocrit (Bld) [Volume fraction] 38.2 % Low 40-54 [facility] Comment on above: Performed By: #### L 503.6550, L503.6150, L500.4100, L503.6075, L100.0100, L500.2500 ####[facility] [address] [place], [address] Hemoglobin (Bld) [Mass/Vol] 12.1 g/dL Low 13.0-16.5 [facility] Comment on above: Performed By: #### L 503.6550, L503.6150, L500.4100, L503.6075, L100.0100, L500.2500 ####[facility] [address] [place], [address] IG% 0.400 Normal 0.0-0.9 [facility] Comment on above: Result Comment: IG% - Immature Granulocytes (promyelocytes, myelocytes and metamyelocytes) > 1% indicates that a LEFT SHIFT is Present. Performed By: #### L 503.6550, L503.6150, L500.4100, L503.6075, L100.0100, L500.2500 ####[facility] [address] [place], [address] Lymphocytes/100 WBC (Bld) 27.1 % Normal 19-41 [facility] Comment on above: Performed By: #### L 503.6550, L503.6150, L500.4100, L503.6075, L100.0100, L500.2500 ####[facility] [address] [place], [address] MCH (RBC) [Entitic mass] 31.5 pg Normal 27.0-32.0 [facility] Comment on above: Performed By: #### L 503.6550, L503.6150, L500.4100, L503.6075, L100.0100, L500.2500 ####[facility] [address] [place], [address] MCHC (RBC) [Mass/Vol] 31.7 g/dL Low 32-36 [facility] Comment on above: Performed By: #### L 503.6550, L503.6150, L500.4100, L503.6075, L100.0100, L500.2500 ####[facility] [address] [place], [address] MCV (RBC) [Entitic vol] 99.5 fL High 80-94 [facility] Comment on above: Performed By: #### L 503.6550, L503.6150, L500.4100, L503.6075, L100.0100, L500.2500 ####[facility] [address] [place], [address] Monocytes/100 WBC (Bld) 11.1 % High 0-10 [facility] Comment on above: Performed By: #### L 503.6550, L503.6150, L500.4100, L503.6075, L100.0100, L500.2500 ####[facility] [address] [place], [address] Neutrophils/100 WBC (Bld) 58.7 % Normal 47-70 [facility] Comment on above: Performed By: #### L 503.6550, L503.6150, L500.4100, L503.6075, L100.0100, L500.2500 ####[facility] [address] [place], [address] Nucleated RBC (Bld) [#/Vol] 0 10*3/uL Normal 0-5 [facility] Comment on above: Performed By: #### L 503.6550, L503.6150, L500.4100, L503.6075, L100.0100, L500.2500 ####[facility] [address] [place], [address] Platelet mean volume (Bld) [Entitic vol] 11.3 fL Normal 6.2-12.0 [facility] Comment on above: Performed By: #### L 503.6550, L503.6150, L500.4100, L503.6075, L100.0100, L500.2500 ####[facility] [address] [place], [address] Platelets (Bld) [#/Vol] 142 10*3/uL Low 150-450 [facility] Comment on above: Performed By: #### L 503.6550, L503.6150, L500.4100, L503.6075, L100.0100, L500.2500 ####[facility] [address] [place], [address] RBC (Bld) [#/Vol] 3.84 10*6/uL Low 4.6-6.2 [facility] Comment on above: Performed By: #### L 503.6550, L503.6150, L500.4100, L503.6075, L100.0100, L500.2500 ####[facility] [address] [place], [address] RDW SD 52.8 fl High 35.1-43.9 [facility] Comment on above: Performed By: #### L 503.6550, L503.6150, L500.4100, L503.6075, L100.0100, L500.2500 ####[facility] [address] [place], [address] WBC (Bld) [#/Vol] 7.6 10*3/uL Normal 4.4-11.0 [facility] Comment on above: Performed By: #### L 503.6550, L503.6150, L500.4100, L503.6075, L100.0100, L500.2500 ####[facility] [address] [place], [address] Calculated total iron bindin g capacityOrdered By: Addi Mario on 11-15-2024 Total Iron Binding Capacity 289 ug/dL 250-450 [facility] Calculated very low density lipoprotein (VLDL) cholesterol measurementOrdered By: Addi Mario on 11-15-2024 Calculated very low density lipoprotein (VLDL) cholesterol measurement 18 mg/dL 5-40 [facility] VLDL Cholesterol 18 mg/dL 5-40 [facility] Carbon dioxide measurementOr dered By: Addi Mario on 11-15-2024 CO2 [Moles/Vol] 28.4 mmol/L 22.0-29.0 [facility] Chloride measurementOrdered By: Addi Mario on 11-15-2024 Chloride [Moles/Vol] 102 mmol/L 96-108 [facility] Eosinophil percentageOrdered By: Addi Mario on 11-15-2024 Eosinophils/100 WBC (Bld) 2.2 % 0-5 [facility] Erythrocyte distribution wid th ratioOrdered By: zackeryrileylilli Mario on 11-15-2024 Erythrocyte distribution width (RBC) [Ratio] 14.4 % 11.6-14.6 [facility] Erythrocyte distribution wid th standard deviationOrdered By: Addi Mario on 11-15-2024 Erythrocyte distribution width (RBC) [Entitic vol] 52.8 fL High 35.1-43.9 [facility] Erythrocyte distribution width (RBC) [Ratio] 52.8 fl High 35.1-43.9 [facility] Ferritinon 11-15-2024 Ferritin [Mass/Vol] 71 ng/mL Normal 37-417 [facility] Comment on above: Performed By: #### L 503.6550, L503.6150, L500.4100, L503.6075, L100.0100, L500.2500 ####[facility] [address] [place], [place], [address] GFR/1.73 sq M.predicted radha g non-blacks MDRD (S/P/Bld) [Vol rate/Area]Ordered By: Addi Mario on 11-15-2024 Estimated GFR (MDRD) Non-Af Amer 84 >60 [facility] Comment on above: mL/min/1.73m2 CKD-EP I Creatinine Equation (2020) Glomerular filtration rate ( GFR) estimation/1.73 sq m using serum, plasma, or whole bOrdered By: Addi Maroi on 11-15-2024 GFR/1.73 sq M.predicted among non-blacks MDRD (S/P/Bld) [Vol rate/Area] 84 mL/min/{1.73_m2} >60 [facility] Comment on above: mL/min/1.73m2 CKD-EP I Creatinine Equation (2020) Hematocrit Auto (Bld) [Volum e fraction]Ordered By: Addi Mario on 11-15-2024 Hematocrit (Bld) [Volume fraction] 38.2 % Low 40-54 [facility] Hemoglobin measurementOrdere d By: Addi Mario on 11-15-2024 Hemoglobin (Bld) [Mass/Vol] 12.1 g/dL Low 13.0-16.5 [facility] Immature granulocytes/100 WB C Auto (Bld)Ordered By: Addi Mario on 11-15-2024 Immature granulocytes/100 WBC (Bld) 0.400 % 0.0-0.9 [facility] Comment on above: IG% - Immature Granu locytes (promyelocytes, myelocytes and metamyelocytes) > 1% indicates that a LEFT SHIFT is Present. Internal Medicine Office Vis gayla 11-15-2024 Internal Medicine Office Visit [facility] [place], [place] [address] OFFICE VISIT Date of Service: 11/15/24 MR#: [id number] Acct: [id number] Name: JESSEE RUST Rep #: [id number] : 1935 Provider: Dr. Addi alvarado MD Age/Sex: 89/M Location: [facility] [place].[facility] Status: Signed Intake Vital Signs 08/15/24 14:31 10/23/24 13:58 11/15/24 15:09 Height 6 ft 6 ft 6 ft Weight: 219 lb BMI 29.7 BP 130/60 H Blood Pressure Location Lt brachial Position Sitting Respiration 18 Pulse 60 Pulse Source Monitor Temp 96.8 F L Temp Source Temporal Pulse Oximetry (%) 99 Oxygen Delivery Method room air Intake Visit Reasons: 3 M FU Chief Complaint: 3 M FU Is patient in pain?: No Allergies metoprolol (From Lopressor) Allergy (Intermediate, Verified 11/15/24 15:06) Shortness of breath bee venom protein (honey bee) (bee sting) Allergy (Mild, Verified 11/15/24 15:06) Swelling Penicillins Allergy (Verified 11/15/24 15:06) Rash Medications ???Medication ???Instructions ???Recorded ???Confirmed ???Type aspirin 81 mg tablet,delayed 81 mg PO DAILY@0800 heart health 0 12/06/16 11/15/24 History release cholecalciferol (vitamin D3) 50 50 mcg PO DAILY Supplement 1 11/15/24 History mcg (2,000 unit) tablet Disability Placard #1 ea 12/01/21 11/15/24 Rx Arthritis Compound 1 click topical DAILY PRN Pain #60 02/08/22 08/15/24 Rx CLICKS albuterol sulfate 90 mcg/actuation 2 puff inhalation Q4H PRN Asthma 04/28/23 08/15/24 Rx aerosol inhaler (Ventolin HFA) #8.5 grams nebulizer and compressor (Portable #1 ea 04/30/23 11/15/24 Rx Nebulizer System) brimonidine 0.1 % eye drops 1 drp ophthalmic (eye) DAILY Eye 1 10/15/22 11/15/24 History drops vmikecdl-irl-yrclu acid 0.4 1 tab PO DAILY supplement 12/02/23 11/15/24 History mg-lycopene 300 mcg-lutein 250 mcg tablet (Centrum Silver) netarsudil 0.02 %-latanoprost 1 drp ophthalmic (eye) QHS Eye 11/15/24 History 0.005 % eye drops (Rocklatan) drops acetaminophen 500 mg tablet 1,000 mg (2 x 500 mg) PO Q6H PRN 0 12/30/23 08/15/24 Rx PRN Pain Score 1-10 #0 tabs albuterol sulfate 2.5 mg/3 mL 2.5 mg (3 mL) inhalation Q4-6H PRN 01/04/24 08/15/24 Rx (0.083 %) solution for nebulization shortness of breath or wheezing #90 mL hydrocortisone 2.5 % topical cream 1 applic [place] BID-QID PRN 01/04/24 11/15/24 Rx with perineal applicator hemorrhoids #30 grams cetirizine 10 mg tablet 10 mg PO DAILY PRN 01/23/24 History sennosides 8.6 mg-docusate sodium 1 tab-cap PO QHS 01/23/24 5 History 50 mg tablet (Senokot-S) ferrous sulfate 325 mg (65 mg 325 mg PO QODAY Supplement #90 tab s 03/12/24 11/15/24 Rx iron) tablet nitroglycerin 0.4 mg sublingual 0.4 mg sublingual Q5-15M PRN chest 05/01/24 11/15/24 Rx tablet pain #25 tabs budesonide-formoter ol HFA 160 2 puff inhalation BID Asthma #1 ea 08/02/24 11/15/24 Rx mcg-4.5 mcg/actuation aerosol inhaler (Symbicort) finasteride 5 mg tablet 5 mg PO DAILY BPH #90 tabs 09/06/ 4 11/15/24 Rx famotidine 20 mg tablet 20 mg PO DAILY GERD #90 tabs 09/1011/15/24 Rx ursodiol 250 mg tablet 500 mg (2 x 250 mg) PO BIDCM 3 11/15/24 Rx months #360 tabs atorvastatin 20 mg tablet 20 mg PO QHS cholesterol #90 tabs 10/22/24 Rx furosemide 20 mg tablet 20 mg PO QDAY #90 tabs 11/15/24 Rx potassium chloride 10 mEq 10 meq PO QDAY With Lasix #90 tabs 11/15/24 11/15/24 Rx tablet,extended release(part/cryst) Have you fallen in the past year?: No Nurse's Note: pt has c/o of issues with swallowing. [facility] Medical History (Updated 11/15/24 @ 15:[address] Addi Mario MD) Swallowing disorder Perianal dermatitis CHF (congestive heart failure) Ureteral calculi Cardiomyopathy Mitral regurgitation Rheumatoid arthritis Non-smoker Hypertension Atrial fibrillation Migraines Sepsis Non-STEMI (non-ST elevated myocardial infarction) Paroxysmal atrial fibrillation Extensor tenosynovitis of right wrist Advanced directives, counseling/discussi on Anemia Left facial swelling Aortic stenosis New onset atrial fibrillation Vitamin D deficiency Obesity Restrictive airway disease Asthma Dermatitis Memory impairment Right foot pain Dizziness History of skin cancer Liver disease History of pneumonia Rheumatoid arthritis Seasonal allergies Fracture of triquetrum of right wrist Fracture of triquetrum of left wrist Closed vertical fracture of left patella History of colon polyps Orthostatic hypotension Iron deficiency anemia Sinus bradycardia Glaucoma Physical debility Degenerative disc disease, cervical Hyponatremia Thrombocytopenia Multiple fractures Fall Anginal equivalent Bradycardia Nonrheumati (more content not included)... Normal [facility] Ironon 11-15-2024 Iron [Mass/Vol] 50 ug/dL Low 65-175 [facility] Comment on above: Performed By: #### L 503.6550, L503.6150, L500.4100, L503.6075, L100.0100, L500.2500 ####[facility] [address] [place], [address] Iron (Unsp spec) [Mass/Mass] Ordered By: Addi Mario on 11-15-2024 Iron [Mass/Vol] 50 ug/dL Low 65-175 [facility] Iron Binding Capacity,Totalo n 11-15-2024 TIBC 289 ug/dL Normal 250-450 [facility] Comment on above: Performed By: #### L 503.6550, L503.6150, L500.4100, L503.6075, L100.0100, L500.2500 ####[facility] [address] [place], [address] Iron measurement (mass/mass) Ordered By: Addi Mario on 11-15-2024 Iron (Unsp spec) [Mass/Mass] 50 ug/dL Low 65-175 [facility] LDL calc ser/plasOrdered By: Addi Mario on 11-15-2024 Cholesterol in LDL [Mass/Vol] 55 mg/dL [facility] Comment on above: Vyhrvimhac=735-898 m g/dL & Higher Bhpw=781 mg/dL or greater LDL Cholesterol, Calculated 55 mg/dL [facility] Comment on above: Eumniploxo=308-522 m g/dL & Higher Wucm=083 mg/dL or greater Lipid Profileon 11-15-2024 CHOL:HDL 2.40 Normal [facility] Comment on above: Performed By: #### L 503.6550, L503.6150, L500.4100, L503.6075, L100.0100, L500.2500 ####[facility] [address] [place], [address] Cholesterol [Mass/Vol] 126 mg/dL Normal <=200 [facility] Comment on above: Result Comment: Chol esterol level, Desirable <200 mg/dL Borderline high cholesterol 200-239 mg/dL High cholesterol >=240 mg/dL Recommendations of the NCEP Adult Treatment Panel for the following risk-cutoff thresholds for the [place] population. Performed By: #### L 503.6550, L503.6150, L500.4100, L503.6075, L100.0100, L500.2500 ####[facility] [address] [place], [address] Cholesterol in HDL [Mass/Vol] 52 mg/dL Normal [facility] Comment on above: Result Comment: Dede onal Cholesterol Education Program (NCEP) guidelines: <40 mg/dL: Low HDL-cholesterol (major risk factor for CHD) >= 60 mg/dL: High HDL-cholesterol (negative risk factor for CHD) HDL-cholesterol is affected by a number of factors, e.g. smoking, exercise, hormones, sex and age. Performed By: #### L 503.6550, L503.6150, L500.4100, L503.6075, L100.0100, L500.2500 ####[facility] [address] [place], [address] Cholesterol in LDL [Mass/Vol] 55 mg/dL Normal [facility] Comment on above: Result Comment: Bord mgqpad=582-341 mg/dL Higher Vkce=486 mg/dL or greater Performed By: #### L 503.6550, L503.6150, L500.4100, L503.6075, L100.0100, L500.2500 ####[facility] [address] [place], [address] Cholesterol in VLDL [Mass/Vol] 18 mg/dL Normal 5-40 [facility] Comment on above: Performed By: #### L 503.6550, L503.6150, L500.4100, L503.6075, L100.0100, L500.2500 ####[facility] [address] [place], [address] Triglyceride [Mass/Vol] 91 mg/dL Normal [facility] Comment on above: Result Comment: The drugs N-Acetylcysteine and Metamizole may falsely depress this assay. Normal range: <150 mg/dL Borderline High: 150-199 mg/dL High: 200-499 mg/dL Very High: >500 mg/dL Performed By: #### L 503.6550, L503.6150, L500.4100, L503.6075, L100.0100, L500.2500 ####[facility] [address] [place], [place], [id number](242) Lymphocytes Auto (Unsp spec) [#/Vol]Ordered By: Addi Mario on 11-15-2024 Lymphocytes (Bld) [#/Vol] 2.07 10*3/uL 0.83-4.5 1 [facility] Lymphocytes/100 WBC Auto (Un sp spec)Ordered By: Addi Mario on 11-15-2024 Lymphocytes/100 WBC (Bld) 27.1 % 19-41 [facility] MCV (mean corpuscular volume ) determinationOrdered By: Addi Mario on 11-15-2024 MCV (RBC) [Entitic vol] 99.5 fL High 80-94 [facility] Mean corpuscular hemoglobin (MCH) determinationOrdered By: Addi Mario on 11-15-2024 MCH (RBC) [Entitic mass] 31.5 pg 27.0-32.0 [facility] Mean corpuscular hemoglobin concentration (MCHC) determinationOrdered By: Addi Mario on 11-15-2024 MCHC (RBC) [Mass/Vol] 31.7 g/dL Low 32-36 [facility] Mean platelet volume determi nationOrdered By: Addi Mario on 11-15-2024 Platelet mean volume (Bld) [Entitic vol] 11.3 fL 6.2-12.0 [facility] Monocyte percentageOrdered B y: Addi Mario on 11-15-2024 Monocytes/100 WBC (Bld) 11.1 % High 0-10 [facility] Neutrophil percentageOrdered By: Addi Mario on 11-15-2024 Neutrophils/100 WBC (Bld) 58.7 % 47-70 [facility] Nucleated red blood cell per centageOrdered By: Addi Mario on 11-15-2024 Nucleated RBC/100 WBC (Bld) [Ratio] 0 % 0-5 [facility] Platelet countOrdered By: Aleah Mario on 11-15-2024 Platelets (Bld) [#/Vol] 142 10*3/uL Low 150-450 [facility] RBC Auto (Bld) [#/Vol]Ordere d By: Addi Mario on 11-15-2024 RBC (Bld) [#/Vol] 3.84 10*6/uL Low 4.6-6.2 [facility] Screening total cholesterol/ high density lipoprotein (HDL) cholesterol ratioOrdered By: Addi Mario on 11-15-2024 Cholesterol.total/Cholest austin in HDL [Mass ratio] 2.40 {ratio} [facility] Serum creatinine measurement (mass/volume)Ordered By: Addi Mario on 11-15-2024 Creatinine [Mass/Vol] 0.86 mg/dL 0.70-1.20 [facility] Serum glucose measurement (m ass/volume)Ordered By: Addi Mario on 11-15-2024 Glucose [Mass/Vol] 87 mg/dL 70-99 [facility] Serum or plasma anion gap de termination (moles/volume)Ordered By: Addi Mario on 11-15-2024 Anion gap [Moles/Vol] 8 mmol/L 5-15 [facility] Serum or plasma calcium tay urement (mass/volume)Ordered By: Addi Mario on 11-15-2024 Calcium [Mass/Vol] 9.6 mg/dL 7.6-11.0 [facility] Serum or plasma cholesterol in HDL measurement (mass/volume)Ordered By: Addi Mario on 11-15-2024 Cholesterol in HDL [Mass/Vol] 52 mg/dL >40 [facility] Comment on above: National Cholesterol Education Program (NCEP) guidelines:<40 mg/dL: Low HDL-cholesterol (major risk factor for CHD)>= 60 mg/dL: High HDL-cholesterol (negative risk factor for CHD)HDL-cholesterol is affected by a number of factors, e.g. smoking, exercise, hormones, sex and age. Serum or plasma cholesterol measurement (mass/volume)Ordered By: Addi Mario on 11-15-2024 Cholesterol [Mass/Vol] 126 mg/dL <201 [facility] Comment on above: Cholesterol level, D esirable <200 mg/dLBorderline high cholesterol 200-239 mg/dLHigh cholesterol >=240 mg/dLRecommendations of the NCEP Adult Treatment Panel for the following risk-cutoff thresholds for the [place] population. Serum or plasma ferritin precious surement (mass/volume)Ordered By: Addi Mario on 11-15-2024 Ferritin [Mass/Vol] 71 ng/mL 37-417 [facility] Serum or plasma potassium me asurementOrdered By: Addi Mario on 11-15-2024 Potassium [Moles/Vol] 4.4 mmol/L 3.3-5.1 [facility] Serum or plasma sodium measu rement (moles/volume)Ordered By: Addi Mario 11-15-2024 Sodium [Moles/Vol] 139 mmol/L 133-145 [facility] Serum or plasma urea nitroge n measurement (mass/volume)Ordered By: Addi Mario 11-15-2024 Urea nitrogen [Mass/Vol] 17 mg/dL 4-19 [facility] Triglycerides measurementOrd ered By: Addi Mario on 11-15-2024 Triglyceride [Mass/Vol] 91 mg/dL <199 [facility] Comment on above: The drugs N-Acetylcy steine and Metamizole may falsely depress this assay. Normal range: <150 mg/dLBorderline High: 150-199 mg/dLHigh: 200-499 mg/dLVery High: >500 mg/dL White blood cell (WBC) count Ordered By: Addi Mario on 11-15-2024 WBC (Bld) [#/Vol] 7.6 10*3/uL 4.4-11.0 [facility] Cardiology Visit Reporton Cardiology Visit Report [facility] [address] [place] [address] OFFICE VISIT Date of Service: 10/23/24 MR#: [id number] Acct: [id number] Name: JESSEE RUST Rep #: [id number] 1 : 1935 Provider: BASSEM Murcia Age/Sex: 89/M Location: [facility] Status: Signed HPI HPI History of Present Illness Details: Jessee Rust is an 89-year-old gentleman who presents for follow-up cardiovascular evaluation. He is a gentleman with a history of coronary artery disease with stenting to his LAD in 2009 and 2016, hypertension, hyperlipidemia, aortic stenosis which is mild to moderate, and atrial fibrillation which was diagnosed in November 2021. He also has a history of primary biliary cirrhosis. He had a Holter monitor in November 2021 did not demonstrate any evidence of atrial fibrillation. Stress test in July 2021 demonstrated no evidence of ischemia. 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 He had heart catheterization on 12/06/2023 that showed mid LAD 50% stenosis, proximal RCA 40% stenosis, and ostial RPDA at 50% stenosis. Medical therapy was recommended. Echocardiogram showed an ejection fraction of 45%. During hospitalization he was also treated for encephalopathy due to UTI and probable pneumonia, thrombocytopenia, and acute kidney injury. Repeat echo in 02/2024 demonstrated an improved EF of 55%. He does not have any swelling and wonders if he can decrease the amount of lasix that he is on. He does not have any chest pain or worsening SOB. He does sometimes have positional dizziness. He is not aware of his AFib but his monitor tells him he has it occasionally. Intake Vital Signs 04/19/24 13:21 08/15/24 14:31 10/23/24 13:58 Height 6 ft 6 ft 6 ft Weight: 218 lb BMI 29.5 BP 140/77 H Blood Pressure Location Lt brachial Position Sitting Respiration 18 Pulse 67 Pulse Source Monitor Pulse Oximetry (%) 99 Intake Visit Reasons: 6 M FU [employer] Attorney Required: No Is patient in pain?: No Allergies metoprolol (From Lopressor) Allergy (Intermediate, Verified 10/23/24 13:58) Shortness of breath bee venom protein (honey bee) (bee sting) Allergy (Mild, Verified 10/23/24 13:58) Swelling Penicillins Allergy (Verified 10/23/24 13:58) Rash Medications ???Medication ???Instructions ???Recorded ???Confirmed ???Type aspirin 81 mg tablet,delayed 81 mg PO DAILY@0800 heart health 0 12/06/16 10/23/24 History release cholecalciferol (vitamin D3) 50 50 mcg PO DAILY Supplement 1 10/23/24 History mcg (2,000 unit) tablet Disability Placard #1 ea 12/01/21 08/15/24 Rx Arthritis Compound 1 click topical DAILY PRN Pain #60 02/08/22 08/15/24 Rx CLICKS albuterol sulfate 90 mcg/actuation 2 puff inhalation Q4H PRN Asthma 04/28/23 08/15/24 Rx aerosol inhaler (Ventolin HFA) #8.5 grams nebulizer and compressor (Portable #1 ea 04/30/23 08/15/24 Rx Nebulizer System) brimonidine 0.1 % eye drops 1 drp ophthalmic (eye) DAILY Eye 1 10/15/22 10/23/24 History drops bzccovfo-sjk-tnkgz acid 0.4 1 tab PO DAILY supplement 12/02/23 10/23/24 History mg-lycopene 300 mcg-lutein 250 mcg tablet (Centrum Silver) netarsudil 0.02 %-latanoprost 1 drp ophthalmic (eye) QHS Eye 10/23/24 History 0.005 % eye drops (Rocklatan) drops acetaminophen 500 mg tablet 1,000 mg (2 x 500 mg) PO Q6H PRN 0 12/30/23 08/15/24 Rx PRN Pain Score 1-10 #0 tabs albuterol sulfate 2.5 mg/3 mL 2.5 mg (3 mL) inhalation Q4-6H PRN 01/04/24 08/15/24 Rx (0.083 %) solution for nebulization shortness of breath or wheezing #90 mL hydrocortisone 2.5 % topical cream 1 applic [place] BID-QID PRN 01/04/24 10/23/24 Rx with perineal applicator hemorrhoids #30 grams cetirizine 10 mg tablet 10 mg PO DAILY PRN 01/23/24 History sennosides 8.6 mg-docusate sodium 1 tab-cap PO QHS 01/23/24 5 History 50 mg tablet (Senokot-S) ferrous sulfate 325 mg (65 mg 325 mg PO QODAY Supplement #90 tab s 03/12/24 10/23/24 Rx iron) tablet nitroglycerin 0.4 mg sublingual 0.4 mg sublingual Q5-15M PRN chest 05/01/24 10/23/24 Rx tablet pain #25 tabs budesonide-formoter ol HFA 160 2 puff inhalation BID Asthma #1 ea 08/02/24 10/23/24 Rx mcg-4.5 mcg/actuation aerosol inhaler (Symbicort) potassium chloride 10 mEq 10 meq PO QDAY With Lasix #90 tabs 08/28/24 10/23/24 Rx tablet,extended release(part/cryst) finasteride 5 mg tablet 5 mg PO DAILY BPH #90 tabs 4 10/23/24 Rx famotidine 20 mg tablet 20 mg PO DAILY GERD #90 tabs 09/1010/23/24 Rx ursodiol 250 mg tablet 500 mg (2 x 250 mg) PO BIDCM 3 10/23/24 Rx months #360 tabs atorvastatin 20 mg tablet 20 mg PO QHS cholesterol #90 tabs 10/22/24 Rx furosemid (more content not included)... Normal [facility] CNPNon 10-03-2024 CNPN Telephone (OPHTMN) ---- EDGARJESSEE Buckner ([id number]) 1935 M Date Time Provider Department 10/03/24 SHAWN SHEA OPHTMN During your visit today, we recorded the following information about you: Leesa Stratton 10/03/2024 2:21 PM Signed patient reporting that he has not been taking his alphagan since 08/12, he was on the med for 2 days and then developed OU conjunctivitis, he took medicine for that but never went back on the alphagan what should he do at this point? [phone] he was offered an appt on 10/08 at [place] but he declined Shawn Shea MD filed at 07/30/2024 2:11 PM Status: Signed New from [place] Tmax: <22; Pachy: -, - Lasers and Surgeries: OD:CEIOL OS:11/2022 Selected laser trabeculoplasty (SLT) Selected laser trabeculoplasty (SLT) previous yrs CEIOL Ocular Medication Intol and Non-efficacy: Bradycardia = BB Now on alphagan 2/2, rocklatan 09/19 Next on alphagan /3, rocklatan 09/19 -HVF 07/2024 false negatives off OD [place], possible worse but only one baseline to compare to OS sparing sup arc, possible worse but only one baseline to compare to -OCT 02/2024 OD diffuse thinning, av 53 OS diffuse thinning, av 54 # Primary open angle glaucoma (POAG) severe both eyes - low/mid teens both eyes on 3 agents both eyes - visual field with possible progression but only one prior to compare to and intraocular pressure is consistently low teens now - goal <= 14 both eyes - make alphagan three times a day both eyes - follow 4 months, dilate, OCT retinal nerve fiber layer - Discussed continuation of drop usage to control chronic glaucoma # Pseudophakia both eyes - stable # [...] stated above and agree with all of it Leesa Stratton 10/03/2024 3:10 PM Signed spoke to pt Shawn Shea MD You; Farhat Herrera MD16 minutes ago (2:52 PM) Restart alphagan three times a day both eyes Allergies As of Date: 10/03/2024 Noted Allergy Reaction BETA-BLOCKERS (BETA-ADRENERGIC BL*01/28/2020 14 - Other: See Comments 12 - Shortness of Breath AMLODIPINE 12/16/2015 14 - Other: See Comments Comments: fatigue,lightheaded LIPITOR (ATORVASTATIN CALCIUM) 02/08/2011 5 - Intolerance Comments: pvc, enzyme elevation long haired dogs and cats [Other] 11/21/2006 METOPROLOL 11/07/2023 16 - Unknown MOLD 11/21/2006 PENICILLINS 07/01/1970 4 - Hives Comments: Had hives in the 70's Date Reviewed: 08/14/2024 Reviewed by: Priya Saleh, OD - Fully Assessed Reason for Visit: follow up from 07/2025 [Other] Prescriptions as of 10/03/2024 - trimethoprim-polymy skip (POLYTRIM) 10,000 unit- 1 mg/mL ophthalmic solution - brimonidine (ALPHAGAN P) 0.1 % drop Use 1 Drop in both eyes three times a day. - ROCKLATAN 0.02-0.005 % ophthalmic solution Use 1 Drop in both eyes daily at bedtime. - furosemide (LASIX) 40 mg tablet Take 1 tablet by mouth every afternoon. - carvedilol (COREG) 6.25 mg tablet Take 25 mg by mouth two times a day with meals. - potassium chloride ER (KLOR-CON M10) 10 mEq tablet Take 10 mEq by mouth once daily. - predniSONE (DELTASONE) 10 mg tablet take 4 tablets by mouth daily for 3 days then 3 daily for 3 days ... (REFER TO PRESCRIPTION NOTES). - ferrous sulfate 325 mg (65 mg iron) tablet Take 1 tablet by mouth every 48 hours. - famotidine (PEPCID) 20 mg tablet Take 1 tablet by mouth once daily. - apixaban (ELIQUIS) 5 mg tab(s) Take 1 tablet by mouth two times a day. - budesonide-formoter ol (SYMBICORT) 160-4.5 mcg/actuation inhaler inhale 2 puffs by mouth once daily - clobetasol (TEMOVATE) 0.05 % cream apply 1 APPLICATION topically once daily if needed for rash - loteprednol etabonate (EYSUVIS) 0.25 % drps Use 1 Drop in eyes as needed. - propylene glycol/peg 400 (SYSTANE FREE, PF, OPHTHALMIC) Use 1 Drop in eyes as needed. - ursodiol (DANNIELLE) 250 mg tablet Take 2 tablets by mouth twice daily. - ezetimibe (ZETIA) 10 mg tablet TAKE ONE TABLET BY MOUTH EVERY DAY - atorvastatin (LIPITOR) 40 mg tablet Take 1 tablet by mouth daily at bedtime. For cholesterol. - ticagrelor (BRILINTA) 90 mg tablet Take 90 mg by mouth two times a day. - lisinopril 2.5 mg tablet Take 2.5 mg by mouth once daily. - omeprazole (PRILOSEC) 20 mg capsule Take 20 mg by mouth daily before breakfast. 1/2 hr before meal. - nitroglycerin sublingual (NITROQUICK) 0.4 mg SL tablet Dissolve 1 tablet under the tongue every 5 minutes as needed for Chest Pain (Max of 3 ta (more content not included)... Normal [facility] Absolute neutrophil countOrd ered By: Addi Mario on 08-15-2024 Neutrophils (Bld) [#/Vol] 3.2 10*3/uL 2.0-7.7 [facility] Albumin to globulin ratioOrd ered By: Addi Mario on 08-15-2024 Albumin/Globulin [Mass ratio] 0.7 {ratio} Low 0.9-2.4 [facility] Basophil percentageOrdered B y: Addi Mario on 08-15-2024 Basophils/100 WBC (Bld) 0.7 % 0-1 [facility] Bilirubin, totalOrdered By: Addi Mario on 08-15-2024 Bilirubin [Mass/Vol] 0.50 mg/dL 0.20-1.00 [facility] Comment on above: For patients on eltr ombopag therapy, use of [place] TBIL is not recommended. Blood urea nitrogen (BUN)/cr eatinine ratioOrdered By: Addi Mario on 08-15-2024 Urea nitrogen/Creatinine [Mass ratio] 15.4 mg/mg 10- [facility] CBC W/Diff, Automatedon 07-21 Absolute Lymph 1.84 X10 3/uL Normal 0.83-4.51 [facility] Comment on above: Performed By: #### L 503.0105, L100.0100, L500.4050 ####[facility] [address] [place], [address] Absolute Neut 3.2 X10 3/uL Normal 2.0-7.7 [facility] Comment on above: Performed By: #### L 503.0105, L100.0100, L500.4050 ####[facility] [address] [place], [address] Basophils/100 WBC (Bld) 0.7 % Normal 0-1 [facility] Comment on above: Performed By: #### L 503.0105, L100.0100, L500.4050 ####[facility] [address] [place], [address] Eosinophils/100 WBC (Bld) 3.2 % Normal 0-5 [facility] Comment on above: Performed By: #### L 503.0105, L100.0100, L500.4050 ####[facility] [address] [place], [address] Erythrocyte distribution width (RBC) [Ratio] 14.6 % Normal 11.6-14.6 [facility] Comment on above: Performed By: #### L 503.0105, L100.0100, L500.4050 ####[facility] [address] [place], [address] Hematocrit (Bld) [Volume fraction] 38.7 % Low 40-54 [facility] Comment on above: Performed By: #### L 503.0105, L100.0100, L500.4050 ####[facility] [address] [place], [address] Hemoglobin (Bld) [Mass/Vol] 12.5 g/dL Low 13.0-16.5 [facility] Comment on above: Performed By: #### L 503.0105, L100.0100, L500.4050 ####[facility] [address] [place], [address] IG% 0.300 Normal 0.0-0.9 [facility] Comment on above: Result Comment: IG% - Immature Granulocytes (promyelocytes, myelocytes and metamyelocytes) > 1% indicates that a LEFT SHIFT is Present. Performed By: #### L 503.0105, L100.0100, L500.4050 ####[facility] [address] [place], [address] Lymphocytes/100 WBC (Bld) 31.2 % Normal 19-41 [facility] Comment on above: Performed By: #### L 503.0105, L100.0100, L500.4050 ####[facility] [address] [place], [address] MCH (RBC) [Entitic mass] 31.7 pg Normal 27.0-32.0 [facility] Comment on above: Performed By: #### L 503.0105, L100.0100, L500.4050 ####[facility] [address] [place], [address] MCHC (RBC) [Mass/Vol] 32.3 g/dL Normal 32-36 [facility] Comment on above: Performed By: #### L 503.0105, L100.0100, L500.4050 ####[facility] [address] [place], [address] MCV (RBC) [Entitic vol] 98.2 fL High 80-94 [facility] Comment on above: Performed By: #### L 503.0105, L100.0100, L500.4050 ####[facility] [address] [place], [address] Monocytes/100 WBC (Bld) 10.5 % High 0-10 [facility] Comment on above: Performed By: #### L 503.0105, L100.0100, L500.4050 ####[facility] [address] [place], [address] Neutrophils/100 WBC (Bld) 54.1 % Normal 47-70 [facility] Comment on above: Performed By: #### L 503.0105, L100.0100, L500.4050 ####[facility] [address] [place], [address] Nucleated RBC (Bld) [#/Vol] 0 10*3/uL Normal 0-5 [facility] Comment on above: Performed By: #### L 503.0105, L100.0100, L500.4050 ####[facility] [address] [place], [address] Platelet mean volume (Bld) [Entitic vol] 11.3 fL Normal 6.2-12.0 [facility] Comment on above: Performed By: #### L 503.0105, L100.0100, L500.4050 ####[facility] [address] [place], [address] Platelets (Bld) [#/Vol] 129 10*3/uL Low 150-450 [facility] Comment on above: Performed By: #### L 503.0105, L100.0100, L500.4050 ####[facility] [address] [place], [address] RBC (Bld) [#/Vol] 3.94 10*6/uL Low 4.6-6.2 [facility] Comment on above: Performed By: #### L 503.0105, L100.0100, L500.4050 ####[facility] [address] [place], [address] RDW SD 53.1 fl High 35.1-43.9 [facility] Comment on above: Performed By: #### L 503.0105, L100.0100, L500.4050 ####[facility] [address] [place], [address] WBC (Bld) [#/Vol] 5.9 10*3/uL Normal 4.4-11.0 [facility] Comment on above: Performed By: #### L 503.0105, L100.0100, L500.4050 ####[facility] [address] [place], [address] Carbon dioxide measurementOr dered By: Addi Mario on 08-15-2024 CO2 [Moles/Vol] 31.0 mmol/L 21.0-32.0 [facility] Chloride measurementOrdered By: Addi Mario on 08-15-2024 Chloride [Moles/Vol] 104 mmol/L 98-107 [facility] Comprehensive Metabolic Prof ilon 08-15-2024 Albumin [Mass/Vol] 3.3 g/dL Normal 3.2-5.0 [facility] Comment on above: Performed By: #### L 503.0105, L100.0100, L500.4050 ####[facility] [address] [place], [address] Albumin/Globulin [Mass ratio] 0.7 {ratio} Low 0.9-2.4 [facility] Comment on above: Performed By: #### L 503.0105, L100.0100, L500.4050 ####[facility] [address] [place], [address] ALK P 91 U/L Normal 45-117 [facility] Comment on above: Performed By: #### L 503.0105, L100.0100, L500.4050 ####[facility] [address] [place], [address] ALT [Catalytic activity/Vol] 21 U/L Normal 16-61 [facility] Comment on above: Performed By: #### L 503.0105, L100.0100, L500.4050 ####[facility] [address] [place], [address] AST [Catalytic activity/Vol] 27 U/L Normal 15-37 [facility] Comment on above: Performed By: #### L 503.0105, L100.0100, L500.4050 ####[facility] [address] [place], [address] Bilirubin [Mass/Vol] 0.50 mg/dL Normal 0.20-1.00 [facility] Comment on above: Result Comment: For patients on eltrombopag therapy, use of [place] TBIL is not recommended. Performed By: #### L 503.0105, L100.0100, L500.4050 ####[facility] [address] [place], [address] BUN/CRE 15.4 RATIO Normal 10-20 [facility] Comment on above: Performed By: #### L 503.0105, L100.0100, L500.4050 ####[facility] [address] [place], [address] CA,Total 9.6 mg/dL Normal 8.5-10.1 [facility] Comment on above: Performed By: #### L 503.0105, L100.0100, L500.4050 ####[facility] [address] [place], [address] Chloride [Moles/Vol] 104 mmol/L Normal 98-107 [facility] Comment on above: Performed By: #### L 503.0105, L100.0100, L500.4050 ####[facility] [address] [place], [address] CO2 [Moles/Vol] 31.0 mmol/L Normal 21.0-32.0 [facility] Comment on above: Performed By: #### L 503.0105, L100.0100, L500.4050 ####[facility] [address] [place], [address] Creatinine [Mass/Vol] 1.04 mg/dL Normal 0.70-1.30 [facility] Comment on above: Result Comment: The validity of the calculated GFR GFRAA in patients over 70 years has not been determined. Clinical correlation is essential. Performed By: #### L 503.0105, L100.0100, L500.4050 ####[facility] [address] [place], [address] EST GFR - AA 87 mL/min Normal >60 [facility] Comment on above: Result Comment: Afri can [place] GFR Calc Performed By: #### L 503.0105, L100.0100, L500.4050 ####[facility] [address] [place], [address] GAP 5 Normal 5-15 [facility] Comment on above: Performed By: #### L 503.0105, L100.0100, L500.4050 ####[facility] [address] [place], [address] GFR/1.73 sq M.predicted among non-blacks MDRD (S/P/Bld) [Vol rate/Area] 72 mL/min/{1.73_m2} Normal >60 [facility] Comment on above: Result Comment: Non- GFR Calc Performed By: #### L 503.0105, L100.0100, L500.4050 ####[facility] [address] [place], [address] Globulin (S) [Mass/Vol] 4.7 g/dL High 2.2-4.2 [facility] Comment on above: Performed By: #### L 503.0105, L100.0100, L500.4050 ####[facility] [address] [place], [address] Glucose [Mass/Vol] 108 mg/dL High 74-106 [facility] Comment on above: Result Comment: Fast ing Glucose result from 100 to 125 mg/dL suggests IMPAIRED HOMEOSTASIS per A.D.A. criteria. Performed By: #### L 503.0105, L100.0100, L500.4050 ####[facility] [address] [place], [address] Potassium [Moles/Vol] 3.9 mmol/L Normal 3.5-5.1 [facility] Comment on above: Performed By: #### L 503.0105, L100.0100, L500.4050 ####[facility] [address] [place], [address] Sodium [Moles/Vol] 140 mmol/L Normal 136-145 [facility] Comment on above: Performed By: #### L 503.0105, L100.0100, L500.4050 ####[facility] [address] [place], [address] T PROT 8.0 g/dL Normal 6.4-8.2 [facility] Comment on above: Performed By: #### L 503.0105, L100.0100, L500.4050 ####[facility] [address] [place], [address] Urea nitrogen [Mass/Vol] 16 mg/dL Normal 7-18 [facility] Comment on above: Performed By: #### L 503.0105, L100.0100, L500.4050 ####[facility] [address] [place], [address] Eosinophil percentageOrdered By: Addi Mario on 08-15-2024 Eosinophils/100 WBC (Bld) 3.2 % 0-5 [facility] Erythrocyte distribution wid th ratioOrdered By: zackeryjimlilli Mario on 08-15-2024 Erythrocyte distribution width (RBC) [Ratio] 14.6 % 11.6-14.6 [facility] Erythrocyte distribution wid th standard deviationOrdered By: Addi Mario on 08-15-2024 Erythrocyte distribution width (RBC) [Entitic vol] 53.1 fL High 35.1-43.9 [facility] Estimated glomerular filtrat ion rate (GFR) AmericanOrdered By: Addi Mario on 08-15-2024 Estimated GFR (MDRD) Amer 87 mL/min >60 [facility] Comment on above: GFR Calc Glomerular filtration rate ( GFR) estimationOrdered By: Addi Mario on 08-15-2024 Estimated GFR (MDRD) Non-Af Amer 72 mL/min >60 [facility] Comment on above: Non- GFR Calc Glucose measurementOrdered B y: Aleahzackeryjimlilli Mario on 08-15-2024 Glucose [Mass/Vol] 108 mg/dL High 74-106 [facility] Comment on above: Fasting Glucose resu lt from 100 to 125 mg/dL suggests IMPAIRED HOMEOSTASIS per A.D.A. criteria. Hematocrit Auto (Bld) [Volum e fraction]Ordered By: Addi Mario on 08-15-2024 Hematocrit (Bld) [Volume fraction] 38.7 % Low 40-54 [facility] Hemoglobin measurementOrdere d By: Addi Mario on 08-15-2024 Hemoglobin (Bld) [Mass/Vol] 12.5 g/dL Low 13.0-16.5 [facility] Immature granulocytes/100 WB C Auto (Bld)Ordered By: Addi Mario on 08-15-2024 Immature granulocytes/100 WBC (Bld) 0.300 % 0.0-0.9 [facility] Comment on above: IG% - Immature Granu locytes (promyelocytes, myelocytes and metamyelocytes) > 1% indicates that a LEFT SHIFT is Present. Internal Medicine Office Vis [place] 08-15-2024 Internal Medicine Office Visit [facility] [address] [place] [address] [place] [address] OFFICE VISIT Date of Service: 08/15/24 MR#: [id number] Acct: [id number] Name: JESSEE RUST Rep #: [id number] : 1935 Provider: Dr. Addi alvarado MD Age/Sex: 89/M Location: [facility] [place] Status: Signed Intake Vital Signs 05/16/24 13:23 08/09/24 13:23 08/15/24 14:31 Height 6 ft 6 ft 6 ft Weight: 219 lb BMI 29.7 BP 120/78 Blood Pressure Location Lt brachial Position Sitting Respiration 14 Pulse 66 Pulse Source Monitor Temp 97.3 F L Temp Source Temporal Pulse Oximetry (%) 98 Oxygen Delivery Method room air Intake Visit Reasons: 3 M FU Chief Complaint: Follow-up chronic conditions [employer] Est[employer] Attorney Required: No Is patient in pain?: No Allergies metoprolol (From Lopressor) Allergy (Intermediate, Verified 08/15/24 14:23) Shortness of breath bee venom protein (honey bee) (bee sting) Allergy (Mild, Verified 08/15/24 14:23) Swelling Penicillins Allergy (Verified 08/15/24 14:23) Rash Medications ???Medication ???Instructions ???Recorded ???Confirmed ???Type aspirin 81 mg tablet,delayed 81 mg PO DAILY@0800 heart health 12/06/16 08/15/24 History release cholecalciferol (vitamin D3) 50 50 mcg PO DAILY Supplement 11/19/20 08/15/24 History mcg (2,000 unit) tablet Disability Placard #1 ea 12/01/21 08/15/24 Rx Arthritis Compound 1 click topical DAILY PRN Pain #60 02/08/22 08/15/24 Rx CLICKS albuterol sulfate 90 mcg/actuation 2 puff inhalation Q4H PRN Asthma 04/28/23 08/15/24 Rx aerosol inhaler (Ventolin HFA) #8.5 grams nebulizer and compressor (Portable #1 ea 04/30/23 08/15/24 Rx Nebulizer System) famotidine 20 mg tablet 20 mg PO DAILY GERD #90 tabs 08/10/23 08/15/24 Rx brimonidine 0.1 % eye drops 1 drp ophthalmic (eye) DAILY Eye 08/15/23 08/15/24 History drops finasteride 5 mg tablet 5 mg PO DAILY BPH #90 tabs 08/18/23 08/15/24 Rx xdvchthm-lcf-kunwj acid 0.4 1 tab PO DAILY supplement 12/02/23 08/15/24 History mg-lycopene 300 mcg-lutein 250 mcg tablet (Centrum Silver) netarsudil 0.02 %-latanoprost 1 drp ophthalmic (eye) QHS Eye 12/02/23 08/15/24 History 0.005 % eye drops (Rocklatan) drops acetaminophen 500 mg tablet 1,000 mg (2 x 500 mg) PO Q6H PRN 12/30/23 08/15/24 Rx PRN Pain Score 1-10 #0 tabs albuterol sulfate 2.5 mg/3 mL 2.5 mg (3 mL) inhalation Q4-6H PRN 01/04/24 08/15/24 Rx (0.083 %) solution for nebulization shortness of breath or wheezing #90 mL hydrocortisone 2.5 % topical cream 1 applic [place] BID-QID PRN 01/04/24 08/15/24 Rx with perineal applicator hemorrhoids #30 grams cetirizine 10 mg tablet 10 mg PO DAILY PRN 01/23/24 08/15/24 History sennosides 8.6 mg-docusate sodium 1 tab-cap PO QHS 01/23/24 08/15/24 History 50 mg tablet (Senokot-S) ferrous sulfate 325 mg (65 mg 325 mg PO QODAY Supplement #90 tabs 03/12/24 08/15/24 Rx iron) tablet ursodiol 250 mg tablet 500 mg (2 x 250 mg) PO BIDCM 3 03/19/24 08/15/24 Rx months #360 tabs nitroglycerin 0.4 mg sublingual 0.4 mg sublingual Q5-15M PRN chest 05/01/24 08/15/24 Rx tablet pain #25 tabs atorvastatin 20 mg tablet 20 mg PO QHS cholesterol #90 tabs 05/02/24 08/15/24 Rx furosemide 40 mg tablet 40 mg PO QDAY edema #90 tabs 05/29/24 08/15/24 Rx potassium chloride 10 mEq 10 meq PO QDAY PRN With Lasix 3 05/29/24 08/15/24 Rx tablet,extended release(part/cryst) months #90 tabs budesonide-formoter ol HFA 160 2 puff inhalation BID Asthma #1 ea 08/02/24 08/15/24 Rx mcg-4.5 mcg/actuation aerosol inhaler (Symbicort) polymyxin B sulfate 10,000 1 drp ophthalmic (eye) TID 7 days 08/09/24 08/15/24 Rx unit-trimethoprim 1 mg/mL eye drops #10 mL Have you fallen in the past year?: No [facility] Medical History Perianal dermatitis CHF (congestive heart failure) Ureteral calculi Cardiomyopathy Mitral regurgitation Rheumatoid arthritis Non-smoker Hypertension Atrial fibrillation Migraines Sepsis Non-STEMI (non-ST elevated myocardial infarction) Paroxysmal atrial fibrillation Extensor tenosynovitis of right wrist Advanced directives, counseling/discussi on Anemia Left facial swelling Aortic stenosis New onset atrial fibrillation Vitamin D deficiency Obesity Restrictive airway disease Asthma Dermatitis Memory impairment Right foot pain Dizziness History of skin cancer Liver disease History of pneumonia Rheumatoid arthritis Seasonal allergies Fracture of triquetrum of right wrist Fracture of triquetrum of left wrist Closed vertical fracture of left patella History of colon polyps Orthostatic hypotension Iron deficiency anemia Sinus bradycardia Glaucoma Physical debility Degenerative disc disease, cervical Hyponatremia Thrombocytope (more content not included)... Normal [facility] Laboratory - Chemistry and C hemistry - challengeOrdered By: Addi Mario on 08-15-2024 AST [Catalytic activity/Vol] 27 U/L 15-37 [facility] Lymphocytes Auto (Unsp spec) [#/Vol]Ordered By: Addi Mario on 08-15-2024 Lymphocytes (Bld) [#/Vol] 1.84 10*3/uL 0.83-4.5 1 [facility] Lymphocytes/100 WBC Auto (Un sp spec)Ordered By: Addi Mario on 08-15-2024 Lymphocytes/100 WBC (Bld) 31.2 % 19-41 [facility] MCV (mean corpuscular volume ) determinationOrdered By: Addi Mario on 08-15-2024 MCV (RBC) [Entitic vol] 98.2 fL High 80-94 [facility] Mean corpuscular hemoglobin (MCH) determinationOrdered By: Addi Mario on 08-15-2024 MCH (RBC) [Entitic mass] 31.7 pg 27.0-32.0 [facility] Mean corpuscular hemoglobin concentration (MCHC) determinationOrdered By: Addi Mario on 08-15-2024 MCHC (RBC) [Mass/Vol] 32.3 g/dL 32-36 [facility] Mean platelet volume determi nationOrdered By: Addi Mario on 08-15-2024 Platelet mean volume (Bld) [Entitic vol] 11.3 fL 6.2-12.0 [facility] Monocyte percentageOrdered B y: Addi Mario on 08-15-2024 Monocytes/100 WBC (Bld) 10.5 % High 0-10 [facility] Neutrophil percentageOrdered By: Addi Amese on 08-15-2024 Neutrophils/100 WBC (Bld) 54.1 % 47-70 [facility] Nucleated red blood cell per centageOrdered By: Addi Mario on 08-15-2024 Nucleated RBC/100 WBC (Bld) [Ratio] 0 % 0-5 [facility] Platelet countOrdered By: Aleah Mario on 08-15-2024 Platelets (Bld) [#/Vol] 129 10*3/uL Low 150-450 [facility] Potassium measurementOrdered By: Addi Mario on 08-15-2024 Potassium [Moles/Vol] 3.9 mmol/L 3.5-5.1 [facility] RBC Auto (Bld) [#/Vol]Ordere d By: Addi Mario on 08-15-2024 RBC (Bld) [#/Vol] 3.94 10*6/uL Low 4.6-6.2 [facility] Serum anion gap measurementO rdered By: Addi Mario on 08-15-2024 Anion gap [Moles/Vol] 5 mmol/L 5-15 [facility] Serum globulin measurementOr dered By: Addi Mario on 08-15-2024 Globulin (S) [Mass/Vol] 4.7 g/dL High 2.2-4.2 [facility] Serum or plasma alanine castellano otransferase (ALT) measurementOrdered By: Addi Mario on 08-15-2024 ALT [Catalytic activity/Vol] 21 U/L 16-61 [facility] Serum or plasma albumin tay urement (mass/volume)Ordered By: Addi Mario on 08-15-2024 Albumin [Mass/Vol] 3.3 g/dL 3.2-5.0 [facility] Serum or plasma alkaline lyndsey sphatase measurementOrdered By: Addi Mario on 08-15-2024 ALP [Catalytic activity/Vol] 91 U/L 45-117 [facility] Serum or plasma calcium tay urement (mass/volume)Ordered By: Addi Mario on 08-15-2024 Calcium [Mass/Vol] 9.6 mg/dL 8.5-10.1 [facility] Serum or plasma creatinine m easurement (mass/volume)Ordered By: Addi Mario on 08-15-2024 Creatinine [Mass/Vol] 1.04 mg/dL 0.70-1.30 [facility] Comment on above: The validity of the calculated GFR & GFRAA in patients over 70 years has not been determined. Clinical correlation is essential. Serum or plasma urea nitroge n measurement (mass/volume)Ordered By: Addi Mario on 08-15-2024 Urea nitrogen [Mass/Vol] 16 mg/dL 7-18 [facility] Sodium levelOrdered By: Arleth Mario on 08-15-2024 Sodium [Moles/Vol] 140 mmol/L 136-145 [facility] Total proteinOrdered By: Sonny Mario on 08-15-2024 Protein [Mass/Vol] 8.0 g/dL 6.4-8.2 [facility] Vitamin B12on 08-15-2024 Cobalamin (Vitamin B12) [Mass/Vol] 992 pg/mL High 211-911 [facility] Comment on above: Performed By: #### L 503.0105, L100.0100, L500.4050 ####[facility] [address] [place], [place], [id number] Vitamin B12 measurementOrder ed By: Addi Mario on 08-15-2024 Cobalamin (Vitamin B12) [Mass/Vol] 992 pg/mL High 211-911 [facility] White blood cell (WBC) count Ordered By: Addi Mario on 08-15-2024 WBC (Bld) [#/Vol] 5.9 10*3/uL 4.4-11.0 [facility] Urgent Care Visit Reporton 1 10-09-2023 Urgent Care Visit Report [facility] [address], [address] [place], [place] [address] OFFICE VISIT Date of Service: 08/09/24 MR#: [id number] Acct: [id number] Name: JESSEE RUST Rep #: [id number] : 1935 Provider: BASSEM Loera Age/Sex: 89/M Location: [facility] [place].[facility] Status: Signed Intake Vital Signs 06/14/24 08:21 08/09/24 13:05 08/09/24 13:23 Height 6 ft 6 ft 6 ft Weight: 217 lb 217 lb BMI 29.4 29.4 BP 144/68 H 134/64 H Blood Pressure Location Lt brachial Rt brachial Position Sitting Sitting Respiration 18 18 Pulse 61 52 L Pulse Source Monitor Monitor Temp 97.6 F L 97.6 F L Temp Source Oral Pulse Oximetry (%) 95 92 Oxygen Delivery Method room air room air Intake Visit Reasons: CONCERN FOR PINKEYE Chief Complaint: Concern for pink eye [employer] Attorney Required: No Accompanied by: Is patient in pain?: No Allergies metoprolol (From Lopressor) Allergy (Intermediate, Verified 08/09/24 13:25) Shortness of breath bee venom protein (honey bee) (bee sting) Allergy (Mild, Verified 08/09/24 13:25) Swelling Penicillins Allergy (Verified 08/09/24 13:25) Rash Medications ???Medication ???Instructions ???Recorded ???Confirmed ???Type aspirin 81 mg tablet,delayed 81 mg PO DAILY@0800 heart health 12/06/16 08/09/24 History release cholecalciferol (vitamin D3) 50 50 mcg PO DAILY Supplement 11/19/20 08/09/24 History mcg (2,000 unit) tablet cyanocobalamin (vitamin B-12) 1,000 mcg PO DAILY Supplement 11/19/20 08/09/24 History 1,000 mcg capsule Disability Placard #1 ea 12/01/21 08/09/24 Rx Arthritis Compound 1 click topical DAILY PRN Pain #60 02/08/22 08/09/24 Rx CLICKS albuterol sulfate 90 mcg/actuation 2 puff inhalation Q4H PRN Asthma 04/28/23 08/09/24 Rx aerosol inhaler (Ventolin HFA) #8.5 grams nebulizer and compressor (Portable #1 ea 04/30/23 08/09/24 Rx Nebulizer System) famotidine 20 mg tablet 20 mg PO DAILY GERD #90 tabs 08/10/23 08/09/24 Rx brimonidine 0.1 % eye drops 1 drp ophthalmic (eye) DAILY Eye 08/15/23 08/09/24 History drops finasteride 5 mg tablet 5 mg PO DAILY BPH #90 tabs 08/18/23 08/09/24 Rx ezetimibe 10 mg tablet 10 mg PO DAILY heart health #90 09/15/23 08/09/24 Rx tabs viphhdmd-pas-wlahm acid 0.4 1 tab PO DAILY supplement 12/02/23 08/09/24 History mg-lycopene 300 mcg-lutein 250 mcg tablet (Centrum Silver) netarsudil 0.02 %-latanoprost 1 drp ophthalmic (eye) QHS Eye 12/02/23 08/09/24 History 0.005 % eye drops (Rocklatan) drops acetaminophen 500 mg tablet 1,000 mg (2 x 500 mg) PO Q6H PRN 12/30/23 08/09/24 Rx PRN Pain Score 1-10 #0 tabs albuterol sulfate 2.5 mg/3 mL 2.5 mg (3 mL) inhalation Q4-6H PRN 01/04/24 08/09/24 Rx (0.083 %) solution for nebulization shortness of breath or wheezing #90 mL hydrocortisone 2.5 % topical cream 1 applic NJ BID-QID PRN 01/04/24 08/09/24 Rx with perineal applicator hemorrhoids #30 grams cetirizine 10 mg tablet 10 mg PO DAILY PRN 01/23/24 08/09/24 History sennosides 8.6 mg-docusate sodium 1 tab-cap PO QHS 01/23/24 08/09/24 History 50 mg tablet (Senokot-S) ferrous sulfate 325 mg (65 mg 325 mg PO QODAY Supplement #90 tabs 03/12/24 08/09/24 Rx iron) tablet ursodiol 250 mg tablet 500 mg (2 x 250 mg) PO BIDCM 3 03/19/24 08/09/24 Rx months #360 tabs nitroglycerin 0.4 mg sublingual 0.4 mg sublingual Q5-15M PRN chest 05/01/24 08/09/24 Rx tablet pain #25 tabs atorvastatin 20 mg tablet 20 mg PO QHS cholesterol #90 tabs 05/02/24 08/09/24 Rx furosemide 40 mg tablet 40 mg PO QDAY edema #90 tabs 05/29/24 08/09/24 Rx potassium chloride 10 mEq 10 meq PO QDAY PRN With Lasix 3 05/29/24 08/09/24 Rx tablet,extended release(part/cryst) months #90 tabs budesonide-formoter ol HFA 160 2 puff inhalation BID Asthma #1 ea 08/02/24 08/09/24 Rx mcg-4.5 mcg/actuation aerosol inhaler (Symbicort) polymyxin B sulfate 10,000 1 drp ophthalmic (eye) TID 7 days 08/09/24 08/09/24 Rx unit-trimethoprim 1 mg/mL eye drops #10 mL Have you fallen in the past year?: No Nurse's Note: Watery,itchy eyes x 3 days along with drainage from eyes. Having to apply warm compresses to alleviate crusting. [facility] Medical History Perianal dermatitis CHF (congestive heart failure) Ureteral calculi Cardiomyopathy Mitral regurgitation Rheumatoid arthritis Non-smoker Hypertension Atrial fibrillation Migraines Sepsis Non-STEMI (non-ST elevated myocardial infarction) Paroxysmal atrial fibrillation Extensor tenosynovitis of right wrist Advanced directives, counseling/discussi on Anemia Left facial swelling Aortic stenosis New onset atrial fibrillation Vitamin D deficiency Obesity Restrictive airway disease Asthma Dermatitis Memory impairment Right foot sahhram (more content not included)... Normal [facility] VISUAL FIELD 24-2 OU (BOTH E YES)on 07-30-2024 [facility] Radiology Study observation (narrative) Erma mace [facility] Pulmonary Visit Reporton Pulmonary Visit Report [facility] Pulmonary Medicine of [address] [place] [address] OFFICE VISIT Date of Service: 06/14/24 MR#: [id number] Acct: [id number] Name: JESSEE RUST Rep #: [id number] 2 : 1935 Provider: HUAN Sharma Age/Sex: 89/M Location: [facility] [place].[facility] Status: Signed Assessment and Plan Assessment and Plan (1) Asthma: Status: Chronic Qualifiers: Asthma complication type: uncomplicated Asthma persistence: unspecified Asthma severity: unspecified severity Qualified Code(s): J45.909 - Unspecified asthma, uncomplicated Plan: Stable, he displays no signs of exacerbation of asthma today. No change in maintenance medications, symptomatically controlled with the use of Symbicort and cetirizine. No additional testing at this time. Contact the office with any signs of new or worsening symptoms. Follow-up in 6 months. Influenza vaccination provided today. (2) CHF (congestive heart failure): Status: Chronic Qualifiers: Heart failure chronicity: chronic Heart failure type: systolic Qualified Code(s): I50.22 - Chronic systolic (congestive) heart failure Plan: Complicates exam, plan, care and prognosis. Orders: Orders Influenza Immunization Today I10 - Essential (primary) hypertension, J44.9 - Chronic obstructive pulmonary disease, unspecified HPI 3 M FU Chief Complaint: Test results HPI Comments Details: This patient presents to the office today to discuss test results. He is ambulatory with use of a wheeled walker. He is currently on room air. He is also accompanied today by his . He has not recently been seen in the ED or urgent care for any respiratory illness. He has not required any antibiotics or steroids for any breathing problems. He is compliant with Symbicort 2 puffs twice daily. He does report rinsing his mouth out thoroughly after each use. He denies any medication side effect such as sore throat or thrush. He is compliant with cetirizine daily. He has occasionally utilized his nebulizer for cough. The patient reports his breathing is doing better, shortness of breath is not as bothersome. He denies any cough, sputum production or hemoptysis. He has occasional wheezing and chest tightness but denies any chest pain or palpitations. He has not had any fever, chills or body aches. Test results personally reviewed with patient: Pulmonary function test completed on April 24, 2024. Impression is mild restrictive ventilatory impairment with symmetric reduction in diffusing capacity. Walking oximetry completed on April 26, 2024. The patient was able to ambulate total of 944 feet over the course of 6 minutes. He did not desaturate and does not currently require any supplemental oxygen. Intake Vital Signs 03/13/24 08:39 05/16/24 13:23 06/14/24 08:21 Height 6 ft 6 ft 6 ft Weight: 216 lb 4 oz 217 lb BMI 29.3 29.4 BP 138/72 H 144/68 H Blood Pressure Location Lt brachial Lt brachial Position Sitting Sitting Respiration 16 18 Pulse 60 61 Pulse Source Monitor Monitor Temp 97.2 F L 97.6 F L Temperature Source Temporal Artery Pulse Oximetry (%) 97 95 Oxygen Delivery Method room air room air Intake Visit Reasons: 3 M FU Chief Complaint: 3m f/u DME Vendor: NA Accompanied by: Self Allergies metoprolol (From Lopressor) Allergy (Intermediate, Verified 06/14/24 13:11) Shortness of breath bee venom protein (honey bee) (bee sting) Allergy (Mild, Verified 06/14/24 13:11) Swelling Penicillins Allergy (Verified 06/14/24 13:11) Rash Medications ???Medication ???Instructions ???Recorded ???Confirmed ???Type aspirin 81 mg tablet,delayed 81 mg PO DAILY@0800 heart health 12/06/16 06/14/24 History release cholecalciferol (vitamin D3) 50 50 mcg PO DAILY Supplement 11/19/20 06/14/24 History mcg (2,000 unit) tablet cyanocobalamin (vitamin B-12) 1,000 mcg PO DAILY Supplement 11/19/20 06/14/24 History 1,000 mcg capsule Disability Placard #1 ea 12/01/21 06/14/24 Rx Arthritis Compound 1 click topical DAILY PRN Pain #60 02/08/22 06/14/24 Rx CLICKS albuterol sulfate 90 mcg/actuation 2 puff inhalation Q4H PRN Asthma 04/28/23 06/14/24 Rx aerosol inhaler (Ventolin HFA) #8.5 grams nebulizer and compressor (Portable #1 ea 04/30/23 06/14/24 Rx Nebulizer System) famotidine 20 mg tablet 20 mg PO DAILY GERD #90 tabs 08/10/23 06/14/24 Rx brimonidine 0.1 % eye drops 1 drp ophthalmic (eye) DAILY Eye 08/15/23 06/14/24 History drops finasteride 5 mg tablet 5 mg PO DAILY BPH #90 tabs 08/18/23 06/14/24 Rx ezetimibe 10 mg tablet 10 mg PO DAILY heart health #90 09/15/23 06/14/24 Rx tabs aogyykov-qbg-yzggt acid 0.4 1 tab PO DAILY supplement 12/02/23 06/14/24 History mg-lycopene 300 mcg-lutein 250 mcg tablet (Centrum Silver) netarsudil 0.02 %-la (more content not included)... Normal [facility] CBC W/Diff, Automatedon 08- Absolute Lymph 2.52 X10 3/uL Normal 0.83-4.51 [facility] Comment on above: Performed By: #### L 100.0100 ####[facility] [address] [place], [address] Absolute Neut 3.6 X10 3/uL Normal 2.0-7.7 [facility] Comment on above: Performed By: #### L 100.0100 ####[facility] [address] [place], [address] Basophils/100 WBC (Bld) 0.4 % Normal 0-1 [facility] Comment on above: Performed By: #### L 100.0100 ####[facility] [address] [place], [address] Eosinophils/100 WBC (Bld) 3.8 % Normal 0-5 [facility] Comment on above: Performed By: #### L 100.0100 ####[facility] [address] [place], [address] Erythrocyte distribution width (RBC) [Ratio] 14.1 % Normal 11.6-14.6 [facility] Comment on above: Performed By: #### L 100.0100 ####[facility] [address] [place], [address] Hematocrit (Bld) [Volume fraction] 36.4 % Low 40-54 [facility] Comment on above: Performed By: #### L 100.0100 ####[facility] [address] [place], [address] Hemoglobin (Bld) [Mass/Vol] 11.4 g/dL Low 13.0-16.5 [facility] Comment on above: Performed By: #### L 100.0100 ####[facility] [address] [place], [address] IG% 0.300 Normal 0.0-0.9 [facility] Comment on above: Result Comment: IG% - Immature Granulocytes (promyelocytes, myelocytes and metamyelocytes) > 1% indicates that a LEFT SHIFT is Present. Performed By: #### L 100.0100 ####[facility] [address] [place], [address] Lymphocytes/100 WBC (Bld) 34.2 % Normal 19-41 [facility] Comment on above: Performed By: #### L 100.0100 ####[facility] [address] [place], [address] MCH (RBC) [Entitic mass] 30.7 pg Normal 27.0-32.0 [facility] Comment on above: Performed By: #### L 100.0100 ####[facility] [address] [place], [address] MCHC (RBC) [Mass/Vol] 31.3 g/dL Low 32-36 [facility] Comment on above: Performed By: #### L 100.0100 ####[facility] [address] [place], [address] MCV (RBC) [Entitic vol] 98.1 fL High 80-94 [facility] Comment on above: Performed By: #### L 100.0100 ####[facility] [address] [place], [address] Monocytes/100 WBC (Bld) 12.2 % High 0-10 [facility] Comment on above: Performed By: #### L 100.0100 ####[facility] [address] [place], [address] Neutrophils/100 WBC (Bld) 49.1 % Normal 47-70 [facility] Comment on above: Performed By: #### L 100.0100 ####[facility] [address] [place], [address] Nucleated RBC (Bld) [#/Vol] 0 10*3/uL Normal 0-5 [facility] Comment on above: Performed By: #### L 100.0100 ####[facility] [address] [place], [address] Platelet mean volume (Bld) [Entitic vol] 11.6 fL Normal 6.2-12.0 [facility] Comment on above: Performed By: #### L 100.0100 ####[facility] [address] [place], [address] Platelets (Bld) [#/Vol] 145 10*3/uL Low 150-450 [facility] Comment on above: Performed By: #### L 100.0100 ####[facility] [address] [place], [address] RBC (Bld) [#/Vol] 3.71 10*6/uL Low 4.6-6.2 [facility] Comment on above: Performed By: #### L 100.0100 ####[facility] [address] [place], [address] RDW SD 50.7 fl High 35.1-43.9 [facility] Comment on above: Performed By: #### L 100.0100 ####[facility] [address] [place], [address] WBC (Bld) [#/Vol] 7.4 10*3/uL Normal 4.4-11.0 [facility] Comment on above: Performed By: #### L 100.0100 ####[facility] [address] [place], [address] Internal Medicine Office Vis gayla 05-16-2024 Internal Medicine Office Visit [facility] [place] [address] OFFICE VISIT Date of Service: 05/16/24 MR#: [id number] Acct: [id number] Name: EDGARJESSEE Buckner CLAIR Rep #: [id number] 1 : 1935 Provider: Dr. Addi alvarado MD Age/Sex: 89/M Location: [facility] [place].[facility] Status: Signed Intake Vital Signs 02/15/24 14:03 04/26/24 13:45 05/16/24 13:23 Height 6 ft 6 ft 6 ft Weight: 216 lb 4 oz BMI 29.3 BP 138/72 H Blood Pressure Location Lt brachial Position Sitting Respiration 16 Pulse 60 Pulse Source Monitor Temp 97.2 F L Temp Source Temporal Pulse Oximetry (%) 97 Oxygen Delivery Method room air Intake Visit Reasons: 3 m fu Chief Complaint: 3m f/u [employer] Attorney Required: No Accompanied by: Is patient in pain?: No Allergies metoprolol (From Lopressor) Allergy (Intermediate, Verified 05/16/24 13:19) Shortness of breath Penicillins Allergy (Verified 05/16/24 13:19) Rash Medications ???Medication ???Instructions ???Recorded ???Confirmed ???Type aspirin 81 mg tablet,delayed 81 mg PO DAILY@0800 heart health 12/06/16 05/16/24 History release cholecalciferol (vitamin D3) 50 50 mcg PO DAILY Supplement 11/19/20 05/16/24 History mcg (2,000 unit) tablet cyanocobalamin (vitamin B-12) 1,000 mcg PO DAILY Supplement 11/19/20 05/16/24 History 1,000 mcg capsule Disability Placard #1 ea 12/01/21 05/16/24 Rx Arthritis Compound 1 click topical DAILY PRN Pain #60 02/08/22 05/16/24 Rx CLICKS albuterol sulfate 90 mcg/actuation 2 puff inhalation Q4H PRN Asthma 04/28/23 05/16/24 Rx aerosol inhaler (Ventolin HFA) #8.5 grams nebulizer and compressor (Portable #1 ea 04/30/23 05/16/24 Rx Nebulizer System) famotidine 20 mg tablet 20 mg PO DAILY GERD #90 tabs 08/10/23 05/16/24 Rx brimonidine 0.1 % eye drops 1 drp ophthalmic (eye) DAILY Eye 08/15/23 05/16/24 History drops budesonide-formoter ol HFA 160 2 puff inhalation BID Asthma 08/15/23 05/16/24 History mcg-4.5 mcg/actuation aerosol inhaler (Symbicort) finasteride 5 mg tablet 5 mg PO DAILY BPH #90 tabs 08/18/23 05/16/24 Rx ezetimibe 10 mg tablet 10 mg PO DAILY heart health #90 09/15/23 05/16/24 Rx tabs txzfdnqh-rez-teeou acid 0.4 1 tab PO DAILY supplement 12/02/23 05/16/24 History mg-lycopene 300 mcg-lutein 250 mcg tablet (Centrum Silver) netarsudil 0.02 %-latanoprost 1 drp ophthalmic (eye) QHS Eye 12/02/23 05/16/24 History 0.005 % eye drops (Rocklatan) drops acetaminophen 500 mg tablet 1,000 mg (2 x 500 mg) PO Q6H PRN 12/30/23 05/16/24 Rx PRN Pain Score 1-10 #0 tabs albuterol sulfate 2.5 mg/3 mL 2.5 mg (3 mL) inhalation Q4-6H PRN 01/04/24 05/16/24 Rx (0.083 %) solution for nebulization shortness of breath or wheezing #90 mL hydrocortisone 2.5 % topical cream 1 applic NJ BID-QID PRN 01/04/24 05/16/24 Rx with perineal applicator hemorrhoids #30 grams cetirizine 10 mg tablet 10 mg PO DAILY PRN 01/23/24 05/16/24 History sennosides 8.6 mg-docusate sodium 1 tab-cap PO QHS 01/23/24 05/16/24 History 50 mg tablet (Senokot-S) furosemide 40 mg tablet 40 mg PO QDAY edema #90 tabs 02/15/24 05/16/24 Rx potassium chloride 10 mEq 10 meq PO QDAY PRN With Lasix 3 02/15/24 05/16/24 Rx tablet,extended release(part/cryst) months #90 tabs ferrous sulfate 325 mg (65 mg 325 mg PO QODAY Supplement #90 tabs 03/12/24 05/16/24 Rx iron) tablet ursodiol 250 mg tablet 500 mg (2 x 250 mg) PO BIDCM 3 03/19/24 05/16/24 Rx months #360 tabs carvedilol 3.125 mg tablet 3.125 mg PO .COMPLEX #180 tabs 04/20/24 05/16/24 Rx nitroglycerin 0.4 mg sublingual 0.4 mg sublingual Q5-15M PRN chest 05/01/24 05/16/24 Rx tablet pain #25 tabs atorvastatin 20 mg tablet 20 mg PO QHS cholesterol #90 tabs 05/02/24 05/16/24 Rx Have you fallen in the past year?: No PFSH Medical History Perianal dermatitis CHF (congestive heart failure) Ureteral calculi Cardiomyopathy Mitral regurgitation Rheumatoid arthritis Non-smoker Hypertension Atrial fibrillation Migraines Sepsis Non-STEMI (non-ST elevated myocardial infarction) Paroxysmal atrial fibrillation Extensor tenosynovitis of right wrist Advanced directives, counseling/discussi on Anemia Left facial swelling Aortic stenosis New onset atrial fibrillation Vitamin D deficiency Obesity Restrictive airway disease Asthma Dermatitis Memory impairment Right foot pain Dizziness History of skin cancer Liver disease History of pneumonia Rheumatoid arthritis Seasonal allergies Fracture of triquetrum of right wrist Fracture of triquetrum of left wrist Closed vertical fracture of left patella History of colon polyps Orthostatic hypotension Iron deficiency anemia Sinus bradycardia Glaucoma Physical debility Degenerative di (more content not included)... Normal [facility] 05-15-2024 [facility] Telephone ([facility]) ---- JESSEE RUST ([id number]) 1935 M Date Time Provider Department 05/15/24 SHAWN SHEA OPHN During your visit today, we recorded the following information about you: Joe Andrey Mikaela 05/15/2024 10:15 AM Signed He's calling as about 4:45 this morning everything he was seeing was green, like a green filter in his vision. He did go back to sleep and his vision returned to normal, but he was told to let you know if anything changed. His vision is a slight bit blurry this morning. Shawn Shea MD filed at 03/12/2024 2:50 PM Status: Signed New from [place] Tmax: <22; Pachy: -, - Lasers and Surgeries: OD:CEIOL OS:11/2022 Selected laser trabeculoplasty (SLT) Selected laser trabeculoplasty (SLT) previous yrs CEIOL Ocular Medication Intol and Non-efficacy: Bradycardia = BB Now on alphagan 2/2, rocklatan 09/19 -HVF 06/2023 OD [place] OS sparing sup arc -OCT 02/2024 OD diffuse thinning, av 53 OS diffuse thinning, av 54 # Primary open angle glaucoma (POAG) severe both eyes - low/mid teens both eyes on 3 agents both eyes - OCT retinal nerve fiber layer stable - goal <= 14 both eyes - follow 6 months, visual field # Pseudophakia both eyes - stable # Epiretinal membrane left eye - per outside records # band K both eyes - stable Allergies As of Date: 05/15/2024 Noted Allergy Reaction BETA-BLOCKERS (BETA-ADRENERGIC BL*01/28/2020 14 - Other: See Comments 12 - Shortness of Breath AMLODIPINE 12/16/2015 14 - Other: See Comments Comments: fatigue,lightheaded LIPITOR (ATORVASTATIN CALCIUM) 02/08/2011 5 - Intolerance Comments: pvc, enzyme elevation long haired dogs and cats [Other] 11/21/2006 METOPROLOL 11/07/2023 16 - Unknown MOLD 11/21/2006 PENICILLINS 07/01/1970 4 - Hives Comments: Had hives in the 70's Date Reviewed: 03/12/2024 Reviewed by: Jacquie Keller, OA - Fully Assessed Reason for Visit: Follow Up [171] Prescriptions as of 05/15/2024 - furosemide (LASIX) 40 mg tablet Take 1 tablet by mouth every afternoon. - carvedilol (COREG) 6.25 mg tablet Take 25 mg by mouth two times a day with meals. - potassium chloride ER (KLOR-CON M10) 10 mEq tablet Take 10 mEq by mouth once daily. - brimonidine (ALPHAGAN P) 0.1 % drop Use 1 Drop in both eyes two times a day. - ROCKLATAN 0.02-0.005 % ophthalmic solution Use 1 Drop in both eyes daily at bedtime. - predniSONE (DELTASONE) 10 mg tablet take 4 tablets by mouth daily for 3 days then 3 daily for 3 days ... (REFER TO PRESCRIPTION NOTES). - ferrous sulfate 325 mg (65 mg iron) tablet Take 1 tablet by mouth every 48 hours. - famotidine (PEPCID) 20 mg tablet Take 1 tablet by mouth once daily. - erythromycin (ROMYCIN) 5 mg/gram (0.5 %) ophthalmic ointment apply A SMALL AMOUNT into right eye at bedtime - apixaban (ELIQUIS) 5 mg tab(s) Take 1 tablet by mouth two times a day. - budesonide-formoter ol (SYMBICORT) 160-4.5 mcg/actuation inhaler inhale 2 puffs by mouth once daily - clobetasol (TEMOVATE) 0.05 % cream apply 1 APPLICATION topically once daily if needed for rash - loteprednol etabonate (EYSUVIS) 0.25 % drps Use 1 Drop in eyes as needed. - propylene glycol/peg 400 (SYSTANE FREE, PF, OPHTHALMIC) Use 1 Drop in eyes as needed. - ursodiol (DANNIELLE) 250 mg tablet Take 2 tablets by mouth twice daily. - ezetimibe (ZETIA) 10 mg tablet TAKE ONE TABLET BY MOUTH EVERY DAY - atorvastatin (LIPITOR) 40 mg tablet Take 1 tablet by mouth daily at bedtime. For cholesterol. - ticagrelor (BRILINTA) 90 mg tablet Take 90 mg by mouth two times a day. - lisinopril 2.5 mg tablet Take 2.5 mg by mouth once daily. - omeprazole (PRILOSEC) 20 mg capsule Take 20 mg by mouth daily before breakfast. 1/2 hr before meal. - nitroglycerin sublingual (NITROQUICK) 0.4 mg SL tablet Dissolve 1 tablet under the tongue every 5 minutes as needed for Chest Pain (Max of 3 tabs.). - albuterol HFA (PROAIR HFA) 90 mcg/actuation inhaler Inhale 2 Puffs as instructed every 4 hours as needed for Wheezing/Shortness of Breath. - baclofen (LIORESAL) 10 mg tablet Take 1 tablet by mouth three times daily as needed (muscle spasms). - ibuprofen (MOTRIN) 200 mg tablet Take 1 tablet by mouth twice daily. For back pain. - Magnesium Hydroxide (CORNEJO MILK OF MAGNESIA) 311 mg chew 2-4 tablets at bedtime for constipation. - pimecrolimus (ELIDEL) 1 % cream Apply to affected areas of dermatitis and/or psoriasis rash on eyelids or central face twice daily until clear as tolerated. Taper as able when clear - pediatric multivitamin plus minerals with iron chewable (FLINTSTONES COMPLETE, IRON,) chewable tablet Take 1 tablet by mouth twice daily. - hydrocortisone 2.5 % cream Apply 1 application to affected area twice daily. - mometasone (ELOCON) 0.1 % cream APPLY TO AFFECTED AREA(S) PSORIASIS ON ELBOWS (more content not included)... Normal [facility] 6 Minute Walk Teston 024 6 Minute Walk Test y [facility] [address] [place] [address] MR#: [id number] Acct: [id number] Name: JESSEE RUST Rep #: [id number] : 1935 89 From: Quentin Beltran DO Referring Dr: Ailin Sharma [employer]-C Status: REG CLI Location: PSN Date: Sex: M C PSN 6 Minute Walk Test 6 Minute Walk Test 6 Minute Walk Test: 6 Minute Walk Test PSN:6-Minute Walk Test Start: 04/26/24 14:05 Freq: Status: Active Protocol: [id number].[id number] Document 04/26/24 13:45 EW (Rec: 04/26/24 14:19 EW [id number]) 6 Minute Walk Test Date Performed 04/26/24 Time Performed 13:45 Height 6 ft Weight: 213 lb Weight in Pounds 213.[address]: Ailin Sharma NP Assistive device used: Walker Pre-test Oxygen Delivery Method Room Air Pulse Ox (%) 98 Pulse Rate (60-100 beats/min) 59 L Dyspnea Darling Scale (0-10) 0 Exertion Darling Scale (6-20) 8 1st minute Oxygen Delivery Method Room Air Pulse Ox (%) 97 Pulse Rate (60-100 beats/min) 63 2nd minute Oxygen Delivery Method Room Air Pulse Ox (%) 92 Pulse Rate (60-100 beats/min) 74 3rd minute Oxygen Delivery Method Room Air Pulse Ox (%) 92 Pulse Rate (60-100 beats/min) 70 4th minute Oxygen Delivery Method Room Air Pulse Ox (%) 90 Pulse Rate (60-100 beats/min) 74 5th minute Oxygen Delivery Method Room Air Pulse Ox (%) 93 Pulse Rate (60-100 beats/min) 74 6th minute Oxygen Delivery Method Room Air Pulse Ox (%) 93 Pulse Rate (60-100 beats/min) 81 Post-test Oxygen Delivery Method Room Air Pulse Ox (%) 97 Pulse Rate (60-100 beats/min) 69 Dyspnea Darling Scale (0-10) 1 Exertion Darling Scale (6-20) 10 Full Laps Walked 16 Partial Lap, Number of Tiles Walked 0 Total Distance Walked (ft) 944 Interpretation Interpretation: The patient ambulated 944 feet over the course of 6 minutes beginning on room air with use of a walker. Pretesting oxygen saturation was noted to be 98% on room air. With ambulation, the moises oxygen saturation was 90%. 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 Recommendations Recommendations: There is no indication for the use of supplemental oxygen at this time. However, close interval follow-up is recommended, given the degree of oxygen desaturation noted during the study. 04/30/24653 Date Quentin Beltran DO CC: Date Dictated: 04/30/24653 Date Transcribed: 04/30/24653 Bakery Worker Conveyor Line: Dr. Quentin Beltran, Signed Normal [facility] Stool Occult Blood iFOBon STOB Positive Normal [facility] Comment on above: Performed By: #### M 100.7900, L400.0001 ####[facility] [address] [place], [place], [id number] Urinalysis, Completeon 04-21 BACTERIA 1+ /hpf Normal None Seen [facility] Comment on above: Order Comment: COLLE CTOR TO SPECIFY Performed By: #### M 100.7900, L400.0001 ####[facility] [address] [place], [place], [id number] WBC 10-25 SEEN Normal 0-5 [facility] Comment on above: Order Comment: COLLE CTOR TO SPECIFY Performed By: #### M 100.7900, L400.0001 ####[facility] [address] [place], [address] EPI,SQUAMOUS 0 SEEN Normal 0-5 [facility] Comment on above: Order Comment: [facility] TO SPECIFY Performed By: #### M 100.7900, L400.0001 ####[facility] [address] [place], [address] Mucus Ql (Urine sed) 0 SEEN Normal [facility] Comment on above: Order Comment: [facility] TO SPECIFY Performed By: #### M 100.7900, L400.0001 ####[facility] [address] [place], [address] RBC 0 SEEN Normal 0-5 [facility] Comment on above: Order Comment: [facility] CT[facility] TO SPECIFY Performed By: #### M 100.7900, L400.0001 ####[facility] [address] [place], [address] 12 Lead EKG performed by [facility] on 04-19-2024 12 Lead EKG performed by [facility] [address] 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 ABNORMAL Electronically signed on 04/23/2024 at 10:[address] Dash Kelley Software Version 8610 04/23/24 1052 Date Ava LUEVANO CC: Dr. Addi Mario MD Date Dictated: 04/19/24 1331 Date Transcribed: 04/19/241330 Bakery Worker Conveyor Line: BRYANNA Signed Normal [facility] Cardiology Visit Reporton Cardiology Visit Report [facility] [address] [place] [address]. [address] [place] [address] OFFICE VISIT Date of Service: 04/19/24 MR#: [id number] Acct: [id number] Name: JESSEE RUST Rep #: [id number] : 1935 Provider: BASSEM Murcia Age/Sex: 89/M Location: [facility] Status: Signed HPI HPI History of Present Illness Details: eJssee Rust is an 89-year-old gentleman who presents for follow-up cardiovascular evaluation. He is a gentleman with a history of coronary artery disease with stenting to his LAD in 2009 and 2016, hypertension, hyperlipidemia, aortic stenosis which is mild to moderate, and atrial fibrillation which was diagnosed in November 2021. He also has a history of primary biliary cirrhosis. He had a Holter monitor in November 2021 did not demonstrate any evidence of atrial fibrillation. Stress test in July 2021 demonstrated no evidence of ischemia. 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 He had heart catheterization on 12/06/2023 that showed mid LAD 50% stenosis, proximal RCA 40% stenosis, and ostial RPDA at 50% stenosis. Medical therapy was recommended. Echocardiogram showed an ejection fraction of 45%. During hospitalization he was also treated for encephalopathy due to UTI and probable pneumonia, thrombocytopenia, and acute kidney injury. Repeat echo in 02/2024 demonstrated an improved EF of 55%. Pt has been concerned about his low HR readings. He is not lightheaded/dizzy. He does not feel any palpitations. He does not have chest pain/heaviness. He does not have any worsening SOB. He is able to walk with his walker without problems. He has questions on his eliquis. His eliquis was stopped during his hospital stay, this was stopped d/t blood in his urine and his anemia. He is now on an ASA and does worry about the risk of a stroke. Intake Vital Signs 10/20/23 09:59 03/13/24 08:39 04/19/24 13:21 Height 6 ft 6 ft 6 ft Weight: 216 lb 218 lb BMI 29.2 29.5 BP 120/70 138/74 H Blood Pressure Location Lt brachial Lt brachial Position Sitting Sitting Respiration 16 16 Pulse 58 L 49 L Pulse Source Monitor Monitor Temp 97.2 F L Temperature Source Temporal Artery Pulse Oximetry (%) 99 100 Oxygen Delivery Method room air room air Intake Visit Reasons: 6 M FU Accompanied by: Is patient in pain?: No Allergies metoprolol (From Lopressor) Allergy (Intermediate, Verified 04/19/24 13:25) Shortness of breath Penicillins Allergy (Verified 04/19/24 13:25) Rash Medications ???Medication ???Instructions ???Recorded ???Confirmed ???Type aspirin 81 mg tablet,delayed 81 mg PO DAILY@0800 heart health 12/06/16 04/19/24 History release cholecalciferol (vitamin D3) 50 50 mcg PO DAILY Supplement 11/19/20 04/19/24 History mcg (2,000 unit) tablet cyanocobalamin (vitamin B-12) 1,000 mcg PO DAILY Supplement 11/19/20 04/19/24 History 1,000 mcg capsule Disability Placard #1 ea 12/01/21 03/13/24 Rx Arthritis Compound 1 click topical DAILY PRN Pain #60 02/08/22 04/19/24 Rx CLICKS albuterol sulfate 90 mcg/actuation 2 puff inhalation Q4H PRN Asthma 04/28/23 04/19/24 Rx aerosol inhaler (Ventolin HFA) #8.5 grams nebulizer and compressor (Portable #1 ea 04/30/23 03/13/24 Rx Nebulizer System) atorvastatin 20 mg tablet 20 mg PO QHS cholesterol #90 tabs 07/07/23 04/19/24 Rx famotidine 20 mg tablet 20 mg PO DAILY GERD #90 tabs 08/10/23 04/19/24 Rx brimonidine 0.1 % eye drops 1 drp ophthalmic (eye) DAILY Eye 08/15/23 04/19/24 History drops budesonide-formoter ol HFA 160 2 puff inhalation BID Asthma 08/15/23 04/19/24 History mcg-4.5 mcg/actuation aerosol inhaler (Symbicort) finasteride 5 mg tablet 5 mg PO DAILY BPH #90 tabs 08/18/23 04/19/24 Rx ezetimibe 10 mg tablet 10 mg PO DAILY heart health #90 09/15/23 04/19/24 Rx tabs nitroglycerin 0.4 mg sublingual 0.4 mg sublingual Q5-15M PRN chest 09/15/23 04/19/24 Rx tablet pain #25 tabs bpsicbar-daj-oebvu acid 0.4 1 tab PO DAILY supplement 12/02/23 04/19/24 History mg-lycopene 300 mcg-lutein 250 mcg tablet (Centrum Silver) netarsudil 0.02 %-latanoprost 1 drp ophthalmic (eye) QHS Eye 12/02/23 04/19/24 History 0.005 % eye drops (Rocklatan) drops acetaminophen 500 mg tablet 1,000 mg (2 x 500 mg) PO Q6H PRN 12/30/23 04/19/24 Rx PRN Pain Score 1-10 #0 tabs albuterol sulfate 2.5 mg/3 mL 2.5 mg (3 mL) inhalation Q4-6H PRN 01/04/24 04/19/24 Rx (0.083 %) solution for nebulization shortness of breath or wheezing #90 mL hydrocortisone 2.5 % topical cream 1 applic [place] BID-QID PRN 01/04/24 04/19/24 Rx with perineal applicator hemorrhoids #30 grams cetirizine 10 mg tablet 10 mg PO DAILY PRN 01/23/24 04/19/24 History sennosides 8.6 mg-docusate sodium 1 tab-cap PO QHS (more content not included)... Normal [facility] Basic Metabolic Profile (BMP )on 04-17-2024 BUN/CRE 16.4 RATIO Normal 10-20 [facility] Comment on above: Performed By: #### L 100.0500, L500.2500 ####[facility] [address] [place], [address] CA,Total 9.3 mg/dL Normal 8.5-10.1 [facility] Comment on above: Performed By: #### L 100.0500, L500.2500 ####[facility] [address] [place], [address] Chloride [Moles/Vol] 101 mmol/L Normal 98-107 [facility] Comment on above: Performed By: #### L 100.0500, L500.2500 ####[facility] [address] [place], [address] CO2 [Moles/Vol] 34.0 mmol/L High 21.0-32.0 [facility] Comment on above: Performed By: #### L 100.0500, L500.2500 ####[facility] [address] [place], [address] Creatinine [Mass/Vol] 0.98 mg/dL Normal 0.70-1.30 [facility] Comment on above: Result Comment: The validity of the calculated GFR GFRAA in patients over 70 years has not been determined. Clinical correlation is essential. Performed By: #### L 100.0500, L500.2500 ####[facility] [address] [place], [address] EST GFR - AA 94 mL/min Normal >60 [facility] Comment on above: Result Comment: Afri can Bahamian GFR Calc Performed By: #### L 100.0500, L500.2500 ####[facility] [address] [place], [address] GAP 3 Low 5-15 [facility] Comment on above: Performed By: #### L 100.0500, L500.2500 ####[facility] [address] [place], [address] GFR/1.73 sq M.predicted among non-blacks MDRD (S/P/Bld) [Vol rate/Area] 77 mL/min/{1.73_m2} Normal >60 [facility] Comment on above: Result Comment: Non- GFR Calc Performed By: #### L 100.0500, L500.2500 ####[facility] [address] [place], [address] Glucose [Mass/Vol] 92 mg/dL Normal 74-106 [facility] Comment on above: Performed By: #### L 100.0500, L500.2500 ####[facility] [address] [place], [address] Potassium [Moles/Vol] 3.8 mmol/L Normal 3.5-5.1 [facility] Comment on above: Performed By: #### L 100.0500, L500.2500 ####[facility] [address] [place], [address] Sodium [Moles/Vol] 138 mmol/L Normal 136-145 [facility] Comment on above: Performed By: #### L 100.0500, L500.2500 ####[facility] [address] [place], [address] Urea nitrogen [Mass/Vol] 16 mg/dL Normal 7-18 [facility] Comment on above: Performed By: #### L 100.0500, L500.2500 ####[facility] [address] [place], [address] CBC-Complete Blood Cnt No Di ffon 04-17-2024 Erythrocyte distribution width (RBC) [Ratio] 14.4 % Normal 11.6-14.6 [facility] Comment on above: Performed By: #### L 100.0500, L500.2500 ####[facility] [address] [place], [address] Hematocrit (Bld) [Volume fraction] 35.9 % Low 40-54 [facility] Comment on above: Performed By: #### L 100.0500, L500.2500 ####[facility] [address] [place], [address] Hemoglobin (Bld) [Mass/Vol] 11.4 g/dL Low 13.0-16.5 [facility] Comment on above: Performed By: #### L 100.0500, L500.2500 ####[facility] [address] [place], [address] MCH (RBC) [Entitic mass] 31.0 pg Normal 27.0-32.0 [facility] Comment on above: Performed By: #### L 100.0500, L500.2500 ####[facility] [address] [place], [address] MCHC (RBC) [Mass/Vol] 31.8 g/dL Low 32-36 [facility] Comment on above: Performed By: #### L 100.0500, L500.2500 ####[facility] [address] [place], [address] MCV (RBC) [Entitic vol] 97.6 fL High 80-94 [facility] Comment on above: Performed By: #### L 100.0500, L500.2500 ####[facility] [address] [place], [address] Platelet mean volume (Bld) [Entitic vol] 11.7 fL Normal 6.2-12.0 [facility] Comment on above: Performed By: #### L 100.0500, L500.2500 ####[facility] [address] [place], [address] Platelets (Bld) [#/Vol] 138 10*3/uL Low 150-450 [facility] Comment on above: Performed By: #### L 100.0500, L500.2500 ####[facility] [address] [place], [address] RBC (Bld) [#/Vol] 3.68 10*6/uL Low 4.6-6.2 [facility] Comment on above: Performed By: #### L 100.0500, L500.2500 ####[facility] [address] [place], [address] RDW SD 51.3 fl High 35.1-43.9 [facility] Comment on above: Performed By: #### L 100.0500, L500.2500 ####[facility] [address] [place], [address] WBC (Bld) [#/Vol] 7.0 10*3/uL Normal 4.4-11.0 [facility] Comment on above: Performed By: #### L 100.0500, L500.2500 ####[facility] [address] [place], [address] [facility] Tele[facility] ([facility]) ---- JESSEE RUST ([id number]) 1935 M Date Time Provider Department 03/14/24 LUCINA FRIEDMAN [facility] During your visit today, we recorded the following information about you: Lucina Friedman LSW 03/14/2024 1:45 PM Signed signal worker helper received a consult order from Dr. Shea who is referring the patient to the [facility] for low vision services. signal worker helper called the patient and discussed the referral and sight center services. Patient states that the sight center is too far from [place], [place] and has requested SW to send him vision resources. signal worker helper and patient discussed use of I-Phone and I-Pad vision accessibility for improved reading and using AI Kamala for additional assistance with reading information. Patient is very comfortable using assistive technology and prefers to the methods he is currently using for visual adaptations. Discussed at length [employer] YouTube videos for tech learning and other information from various websites that would be helpful for the patient. SW provided education and information about the Independent Living Program through [employer] [place] [facility]) and that SW can help the patient with the application and connection to an [facility] counselor who could provide low vision assessment and adaptive visual aids from an in-home visit. Patient would like the information sent and will think about it and get back to this SW. signal worker helper to email vision resources. Patient will reach out to SW as needed. Contact information provided. Allergies As of Date: 03/14/2024 Noted Allergy Reaction BETA-BLOCKERS (BETA-ADRENERGIC BL*01/28/2020 14 - Other: See Comments 12 - Shortness of Breath AMLODIPINE 12/16/2015 14 - Other: See Comments Comments: fatigue,lightheaded LIPITOR (ATORVASTATIN CALCIUM) 02/08/2011 5 - Intolerance Comments: pvc, enzyme elevation long haired dogs and cats [Other] 11/21/2006 METOPROLOL 11/07/2023 16 - Unknown MOLD 11/21/2006 PENICILLINS 07/01/1970 4 - Hives Comments: Had hives in the 70's Date Reviewed: 03/12/2024 Reviewed by: Jacquie Keller, OA - Fully Assessed Reason for Visit: Consult to [facility] [Other] Visit Diagnosis:Primary open angle glaucoma (POAG) of both eyes, severe stage [H40.1133] Order(s):CONSULT TO [employer] [facility] WORK [[id number]] Order #: [id number]: 1 Prescriptions as of 03/14/2024 - furosemide (LASIX) 40 mg tablet Take 1 tablet by mouth every afternoon. - carvedilol (COREG) 6.25 mg tablet Take 25 mg by mouth two times a day with meals. - potassium chloride ER (KLOR-CON M10) 10 mEq tablet Take 10 mEq by mouth once daily. - brimonidine (ALPHAGAN P) 0.1 % drop Use 1 Drop in both eyes two times a day. - ROCKLATAN 0.02-0.005 % ophthalmic solution Use 1 Drop in both eyes daily at bedtime. - predniSONE (DELTASONE) 10 mg tablet take 4 tablets by mouth daily for 3 days then 3 daily for 3 days ... (REFER TO PRESCRIPTION NOTES). - ferrous sulfate 325 mg (65 mg iron) tablet Take 1 tablet by mouth every 48 hours. - famotidine (PEPCID) 20 mg tablet Take 1 tablet by mouth once daily. - erythromycin (ROMYCIN) 5 mg/gram (0.5 %) ophthalmic ointment apply A SMALL AMOUNT into right eye at bedtime - apixaban (ELIQUIS) 5 mg tab(s) Take 1 tablet by mouth two times a day. - budesonide-formoter ol (SYMBICORT) 160-4.5 mcg/actuation inhaler inhale 2 puffs by mouth once daily - clobetasol (TEMOVATE) 0.05 % cream apply 1 APPLICATION topically once daily if needed for rash - loteprednol etabonate (EYSUVIS) 0.25 % drps Use 1 Drop in eyes as needed. - propylene glycol/peg 400 (SYSTANE FREE, PF, OPHTHALMIC) Use 1 Drop in eyes as needed. - ursodiol (DANNIELLE) 250 mg tablet Take 2 tablets by mouth twice daily. - ezetimibe (ZETIA) 10 mg tablet TAKE ONE TABLET BY MOUTH EVERY DAY - atorvastatin (LIPITOR) 40 mg tablet Take 1 tablet by mouth daily at bedtime. For cholesterol. - ticagrelor (BRILINTA) 90 mg tablet Take 90 mg by mouth two times a day. - lisinopril 2.5 mg tablet Take 2.5 mg by mouth once daily. - omeprazole (PRILOSEC) 20 mg capsule Take 20 mg by mouth daily before breakfast. 1/2 hr before meal. - nitroglycerin sublingual (NITROQUICK) 0.4 mg SL tablet Dissolve 1 tablet under the tongue every 5 minutes as needed for Chest Pain (Max of 3 tabs.). - albuterol HFA (PROAIR HFA) 90 mcg/actuation inhaler Inhale 2 Puffs as instructed every 4 hours as needed for Wheezing/Shortness of Breath. - baclofen (LIORESAL) 10 mg tablet Take 1 tablet by mouth three times daily as needed (muscle spasms). - ibuprofen (MOTRIN) 200 mg tablet Take 1 tablet by mouth twice daily. For back pain. - Magnesium Hydroxide (CORNEJO MILK OF MAGNESIA) 311 mg chew 2-4 tablets at bedtime for constipation. - pimecrolimus (ELIDEL) 1 % cream Apply to affected a (more content not included)... Normal [facility] CONSULT TO KEVIN JIMY Arias 03-14-2024 Patient declined sight center. Requested vision resources. Thank you. [facility] Pulmonary Visit Reporton Pulmonary Visit Report [facility]monary Medicine of [address] [place] [address] OFFICE VISIT Date of Service: 03/13/24 MR#: [id number] Acct: [id number] Name: JESSEE RUST Rep #: [id number] : 1935 Provider: HUAN Sharma Age/Sex: 89/M Location: [facility] Status: Signed Assessment and Plan Assessment and Plan (1) Asthma: Status: Chronic Qualifiers: Asthma complication type: uncomplicated Asthma persistence: unspecified Asthma severity: unspecified severity Qualified Code(s): J45.909 - Unspecified asthma, uncomplicated Plan: The patient reports disease progression, symptomatically he is feeling more short of breath. He is concerned that after having COVID in fall 2022 and recently having pneumonia that his pulmonary status has worsened. I suggested utilizing nebulizer more frequently to loosen lamp he has been having trouble with. I suggested trying Singulair, the patient was opposed to adding any additional pills. I also suggested possibly utilizing a nasal steroid, the patient would rather not add any additional medications. He would like to reevaluate his baseline pulmonary function. Given the recent pulmonary illnesses it would be helpful to reevaluate his pulmonary function status. (2) Shortness of breath: Status: Acute Plan: He also has complaints of shortness of breath on exertion, which should be evaluated for exertional hypoxia. I explained to the patient that if they apply supplemental oxygen during the testing that I will be ordering oxygen to be utilized with any ambulation. Follow-up in the office after test results are available for review. (3) CHF (congestive heart failure): Status: Chronic Qualifiers: Heart failure type: systolic Heart failure chronicity: chronic Qualified Code(s): I50.22 - Chronic systolic (congestive) heart failure Plan: Complicates exam, plan, care and prognosis. May be contributing to the patient's shortness of breath. I explained to the patient if we are able to identify exertional hypoxia that treating it with supplemental oxygen may have positive impact on his heart failure. He conveys understanding and is agreeable with testing. Orders: Orders Pulmonary Function Test (Comp) Today R06.02 - Shortness of breath Simple Pulmonary Exercise Test Today R06.02 - Shortness of breath Plan Details Follow Up: 3 Months ([facility]) HPI 6 M FU Chief Complaint: Shortness of breath HPI Comments Details: This patient presents to the office today for routine follow-up of his asthma. He is ambulatory with use of a wheeled walker. He is currently on room air. He is also accompanied today by his . The patient was hospitalized in December for UTI and pneumonia. He has not recently required any additional antibiotics or steroids. He is compliant with Symbicort 2 puffs twice daily. He does report rinsing his mouth out thoroughly after each use. He denies any medication side effect such as sore throat or thrush. He is compliant with cetirizine daily. He has occasionally utilized his nebulizer for cough. The patient does have shortness of breath on exertion and is exerted easily. He reports that he believes his shortness of breath is progressing. He has a cough that is productive of clear-colored sputum. Sometimes it is difficult to expectorate. He has occasional wheezing and chest tightness but denies any chest pain or palpitations. He has not had any fever, chills or body aches. He does report needing to utilize albuterol sometimes in the middle of the night. He also reports that the land production seems to be more prevalent at night. Intake Vital Signs 06/29/23 06:44 08/15/23 14:47 12/08/23 16:18 02/15/24 14:03 03/13/24 08:39 Height 6 ft 6 ft 6 ft 6 ft 6 ft Weight: 216 lb BMI 29.2 BP 120/70 Blood Pressure Location Lt brachial Position Sitting Respiration 16 Pulse 58 L Pulse Source Monitor Temp 97.2 F L Temperature Source Temporal Artery Pulse Oximetry (%) 99 Oxygen Delivery Method room air Intake Visit Reasons: 6 M FU Chief Complaint: 6m f/u [employer] Required: No DME Vendor: N/A Accompanied by: Is patient in pain?: No Allergies metoprolol (From Lopressor) Allergy (Intermediate, Verified 03/13/24 14:47) Shortness of breath Penicillins Allergy (Verified 03/13/24 14:47) Rash Medications ???Medication ???Instructions ???Recorded ???Confirmed ???Type aspirin 81 mg tablet,delayed 81 mg PO DAILY@0800 heart health 12/06/16 03/13/24 History release cholecalciferol (vitamin D3) 50 50 mcg PO DAILY Supplement 11/19/20 03/13/24 History mcg (2,000 unit) tablet cyanocobalamin (vitamin B-12) 1,000 mcg PO DAILY Supplement 11/19/20 03/13/24 History 1,000 mcg capsule Disability Placard #1 ea 12/01/21 03/13/24 Rx (more content not included)... Normal [facility] OCT OPTIC NERVE CIRRUS OU (B OTH EYES)on 03-12-2024 [facility] Radiology Study observation (narrative) [facility] Absolute lymphocyte countOrd ered By: Arsenio Mcgregor on 12-30-2023 Lymphocytes Auto (Unsp spec) [#/Vol] 2.79 10*3/uL 0.83-4.51 [facility] Automated lymphocyte count a s percentage of total leukocytesOrdered By: Arsenio Mcgregor on 12-30-2023 Lymphocytes/100 WBC Auto (Unsp spec) 35.0 % 19-41 [facility] Basophil percentageOrdered B y: Arsenio Mcgregor on 12-30-2023 Basophils/100 WBC (Bld) 0.9 % 0-1 [facility] Chloride [Moles/Vol] 105 mmol/L 98-107 [facility] Eosinophils/100 WBC (Bld) 5.4 % 0-5 [facility] Glucose [Mass/Vol] 103 mg/dL 74-106 [facility] Comment on above: Fasting Glucose resu lt from 100 to 125 mg/dL suggests IMPAIRED HOMEOSTASIS per A.D.A. criteria. Hemoglobin (Bld) [Mass/Vol] 9.8 g/dL 13.0-16.5 [facility] Monocytes/100 WBC (Bld) 13.6 % 0-10 [facility] Neutrophils (Bld) [#/Vol] 3.6 10*3/uL 2.0-7.7 [facility] Neutrophils/100 WBC (Bld) 44.5 % 47-70 [facility] Potassium [Moles/Vol] 4.2 mmol/L 3.5-5.1 [facility] Sodium [Moles/Vol] 138 mmol/L 136-145 [facility] WBC (Bld) [#/Vol] 8.0 10*3/uL 4.4-11.0 [facility] Determination of erythrocyte mean corpuscular volume (MCV)Ordered By: Arsenio Mcgregor on 12-30-2023 MCV (RBC) [Entitic vol] 96.4 fL 80-94 [facility] Erythrocyte distribution wid th ratioOrdered By: Arsenio Mcgregor 12-30-2023 Erythrocyte distribution width (RBC) [Ratio] 15.6 % 11.6-14.6 [facility] Erythrocyte distribution wid th standard deviationOrdered By: Arsenio Mcgregor 12-30-2023 Erythrocyte distribution width (RBC) [Entitic vol] 55.5 fL 35.1-43.9 [facility] Hematocrit Auto (Bld) [Volum e fraction]Ordered By: Arsenio Mcgregor 12-30-2023 Hematocrit (Bld) [Volume fraction] 31.8 % 40-54 [facility] Immature granulocytes/100 WB C Auto (Bld)Ordered By: Arsenio Mcgregor on 12-30-2023 Immature granulocytes/100 WBC (Bld) 0.600 % 0.0-0.9 [facility] Comment on above: IG% - Immature Granu locytes (promyelocytes, myelocytes and metamyelocytes) > 1% indicates that a LEFT SHIFT is Present. Laboratory - Chemistry and C hemistry - challengeOrdered By: Arsenio Mcgregor 12-30-2023 CO2 [Moles/Vol] 33.0 mmol/L 21.0-32.0 [facility] Urea nitrogen/Creatinine [Mass ratio] 19.0 mg/mg 10-20 [facility] Laboratory - Hematology and Cell countsOrdered By: Arsenio Mcgregor on 12-30-2023 MCH (RBC) [Entitic mass] 29.7 pg 27.0-32.0 [facility] MCHC (RBC) [Mass/Vol] 30.8 g/dL 32-36 [facility] Nucleated RBC/100 WBC (Bld) [Ratio] 0 % 0-5 [facility] Platelet mean volume (Bld) [Entitic vol] 9.7 fL 6.2-12.0 [facility] Platelets (Bld) [#/Vol] 183 10*3/uL 150-450 [facility] No Panel InformationOrdered By: Arsenio Mcgregor on 12-30-2023 Estimated Creatinine Clearance Calc 51.48 ml/min [facility] Estimated GFR (MDRD) Amer 70 mL/min >60 [facility] Comment on above: GFR Calc Estimated GFR (MDRD) Non-Af Amer 58 mL/min >60 [facility] Comment on above: Non- GFR Calc RBC Auto (Bld) [#/Vol]Ordere d By: Arsenio Mcgregor on 12-30-2023 RBC (Bld) [#/Vol] 3.30 10*6/uL 4.6-6.2 [facility] Serum or plasma calcium tay urement (mass/volume)Ordered By: Arsenio Mcgregor on 12-30-2023 Calcium [Mass/Vol] 9.2 mg/dL 8.5-10.1 [facility] Serum or plasma creatinine m easurement (mass/volume)Ordered By: Arsenio Mcgregor on 12-30-2023 Creatinine [Mass/Vol] 1.26 mg/dL 0.70-1.30 [facility] Comment on above: The validity of the calculated GFR & GFRAA in patients over 70 years has not been determined. Clinical correlation is essential. Serum or plasma urea nitroge n measurement (mass/volume)Ordered By: Arsenio Mcgregor on 12-30-2023 Urea nitrogen [Mass/Vol] 24 mg/dL 7-18 [facility] Thin prep Papanicolaou smear with manual screeningOrdered By: Arsenio Mcgregor 12-30-2023 Thin prep Papanicolaou smear with manual screening 0 5-15 [facility] Absolute lymphocyte countOrd ered By: Arsenio Mcgregor on 12-23-2023 Lymphocytes Auto (Unsp spec) [#/Vol] 1.50 10*3/uL 0.83-4.51 [facility] Automated lymphocyte count a s percentage of total leukocytesOrdered By: Arsenio Mcgregor on 12-23-2023 Lymphocytes/100 WBC Auto (Unsp spec) 18.8 % 19-41 [facility] Basophil percentageOrdered B y: Arsenio Mcgregor on 12-23-2023 Basophils/100 WBC (Bld) 0.5 % 0-1 [facility] Chloride [Moles/Vol] 103 mmol/L 98-107 [facility] Eosinophils/100 WBC (Bld) 2.0 % 0-5 [facility] Glucose [Mass/Vol] 102 mg/dL 74-106 [facility] Comment on above: Fasting Glucose resu lt from 100 to 125 mg/dL suggests IMPAIRED HOMEOSTASIS per A.D.A. criteria. Hemoglobin (Bld) [Mass/Vol] 10.0 g/dL 13.0-16.5 [facility] Monocytes/100 WBC (Bld) 16.8 % 0-10 [facility] Neutrophils (Bld) [#/Vol] 4.9 10*3/uL 2.0-7.7 [facility] Neutrophils/100 WBC (Bld) 61.5 % 47-70 [facility] Potassium [Moles/Vol] 4.0 mmol/L 3.5-5.1 [facility] Sodium [Moles/Vol] 136 mmol/L 136-145 [facility] WBC (Bld) [#/Vol] 8.0 10*3/uL 4.4-11.0 [facility] Determination of erythrocyte mean corpuscular volume (MCV)Ordered By: Arsenio Mcgregor on 12-23-2023 MCV (RBC) [Entitic vol] 95.3 fL 80-94 [facility] Erythrocyte distribution wid th ratioOrdered By: Arsenio Mcgregor on 12-23-2023 Erythrocyte distribution width (RBC) [Ratio] 15.6 % 11.6-14.6 [facility] Erythrocyte distribution wid th standard deviationOrdered By: Arsenio Mcgregor on 12-23-2023 Erythrocyte distribution width (RBC) [Entitic vol] 54.6 fL 35.1-43.9 [facility] Hematocrit Auto (Bld) [Volum e fraction]Ordered By: Arsenio Mcgregor on 12-23-2023 Hematocrit (Bld) [Volume fraction] 32.1 % 40-54 [facility] Immature granulocytes/100 WB C Auto (Bld)Ordered By: Arsenio Mcgregor on 12-23-2023 Immature granulocytes/100 WBC (Bld) 0.400 % 0.0-0.9 [facility] Comment on above: IG% - Immature Granu locytes (promyelocytes, myelocytes and metamyelocytes) > 1% indicates that a LEFT SHIFT is Present. Laboratory - Chemistry and C hemistry - challengeOrdered By: Arsenio Mcgregor on 12-23-2023 CO2 [Moles/Vol] 30.0 mmol/L 21.0-32.0 [facility] Urea nitrogen/Creatinine [Mass ratio] 26.4 mg/mg 10-20 [facility] Laboratory - Hematology and Cell countsOrdered By: Arsenio Mcgregor on 12-23-2023 MCH (RBC) [Entitic mass] 29.7 pg 27.0-32.0 [facility] MCHC (RBC) [Mass/Vol] 31.2 g/dL 32-36 [facility] Nucleated RBC/100 WBC (Bld) [Ratio] 0 % 0-5 [facility] Platelet mean volume (Bld) [Entitic vol] 9.8 fL 6.2-12.0 [facility] Platelets (Bld) [#/Vol] 188 10*3/uL 150-450 [facility] No Panel InformationOrdered By: Arsenio Mcgregor on 12-23-2023 Estimated Creatinine Clearance Calc 59.39 ml/min [facility] Estimated GFR (MDRD) Amer 82 mL/min >60 [facility] Comment on above: GFR Calc Estimated GFR (MDRD) Non-Af Amer 67 mL/min >60 [facility] Comment on above: Non- GFR Calc RBC Auto (Bld) [#/Vol]Ordere d By: Arsenio Mcgregor on 12-23-2023 RBC (Bld) [#/Vol] 3.37 10*6/uL 4.6-6.2 [facility] Serum or plasma calcium tay urement (mass/volume)Ordered By: Arsenio Mcgregor on 12-23-2023 Calcium [Mass/Vol] 9.0 mg/dL 8.5-10.1 [facility] Serum or plasma creatinine m easurement (mass/volume)Ordered By: Arsenio Mcgregor on 12-23-2023 Creatinine [Mass/Vol] 1.10 mg/dL 0.70-1.30 [facility] Comment on above: The validity of the calculated GFR & GFRAA in patients over 70 years has not been determined. Clinical correlation is essential. Serum or plasma urea nitroge n measurement (mass/volume)Ordered By: Arsenio Mcgregor on 12-23-2023 Urea nitrogen [Mass/Vol] 29 mg/dL 7-18 [facility] Thin prep Papanicolaou smear with manual screeningOrdered By: Arsenio Mcgregor on 12-23-2023 Thin prep Papanicolaou smear with manual screening 3 5-15 [facility] Basophil percentageOrdered B y: Arsenio Mcgregor on 12-10-2023 Basophil percentage 50-100 SEEN /hpf 0-5 [facility] Bilirubin Test strip Ql (U)O rdered By: Arsenio Mcgregor on 12-10-2023 Bilirubin Ql (U) Negative Negative [facility] Culture, urineOrdered By: Izaiah Mcgregor on 12-10-2023 Bacteria identified Cx Nom (U) Presumptive C albicans [facility] Bacteria identified Cx Nom (U) Negative [facility] Hyaline casts LM.LPF (Urine sed) [#/Area]Ordered By: Arsenio Mcgregor on 12-10-2023 Hyaline casts (Urine sed) [#/Area] 0 /[LPF] 0-5 [facility] Ketones Test strip Ql (U)Ord ered By: Arsenio Mcgregor on 12-10-2023 Ketones Ql (U) Negative Negative [facility] Mucus LM Ql (Urine sed)Order ed By: Arsenio Mcgregor on 12-10-2023 Mucus Ql (Urine sed) 1+ /hpf [facility] Nitrite Test strip Ql (U)Ord ered By: Arsenio Mcgregor on 12-10-2023 Nitrite Ql (U) Negative Negative [facility] No Panel InformationOrdered By: Arsenio Mcgregor on 12-10-2023 Urine RBC 25-50 SEEN /hpf 0-5 [facility] Protein Test strip Ql (U)Ord ered By: Arsenio Mcgregor on 12-10-2023 Protein Ql (U) 30 mg/dl Negative [facility] Squamous epithelial cells de tection in urine sediment by light microscopyOrdered By: Arsenio Mcgregor on 12-10-2023 Epithelial cells.squamous LM Ql (Urine sed) 0-5 SEEN /hpf 0-5 [facility] Urine blood detectionOrdered By: Arsenio Mcgregor on 12-10-2023 RBC Ql (U) 250 /ul Negative [facility] Urine clarityOrdered By: Arsenio Mcgregor on 12-10-2023 Clarity (U) Sl. Cloudy Clear [facility] Urine color determinationOrd ered By: Arsenio Mcgregor on 12-10-2023 Color (U) Yellow Yellow [facility] Urine glucose detectionOrder ed By: Arsenio Mcgregor on 12-10-2023 Glucose Ql (U) Normal mg/dl Normal [facility] Urine leukocyte esterase det ection by dipstickOrdered By: Arsenio Mcgregor on 12-10-2023 Leukocyte esterase Test strip Ql (U) 500 /ul Negative [facility] Urine pHOrdered By: Arsenio Mcgregor on 12-10-2023 pH (U) 6.0 [pH] 5.0 - 8.0 [facility] Urine sediment bacteria coun t by microscopy (number/high power field)Ordered By: Arsenio Mcgregor on 12-10-2023 Bacteria LM.HPF (Urine sed) [#/Area] 1 /[HPF] None Seen [facility] Urine specific gravity measu rementOrdered By: Arsenio Mcgregor on 12-10-2023 Specific gravity (U) [Rel density] 1.010 1.002-1.030 [facility] Urine urobilinogen measureme ntOrdered By: Arsenio Mcgregor on 12-10-2023 Urobilinogen Ql (U) Normal mg/dl Normal [facility] Blood manual differential co mment interpretation (narrative result)Ordered By: Arsenio Mcgregor on 12-09-2023 Manual differential comment Theodore (Bld) [Interp] SCANNED [facility] Comment on above: MONOCYTOSIS PRESENT Absolute lymphocyte countOrd ered By: Klaudia Gonzales on 12-08-2023 Lymphocytes Auto (Unsp spec) [#/Vol] 1.74 10*3/uL 0.83-4.51 [facility] Automated lymphocyte count a s percentage of total leukocytesOrdered By: Klaudia Janet on 12-08-2023 Lymphocytes/100 WBC Auto (Unsp spec) 19.1 % 19-41 [facility] Basophil percentageOrdered B y: Klaudia Wuyael on 12-08-2023 Basophils/100 WBC (Bld) 0.3 % 0-1 [facility] Chloride [Moles/Vol] 104 mmol/L 98-107 [facility] Eosinophils/100 WBC (Bld) 1.7 % 0-5 [facility] Glucose [Mass/Vol] 114 mg/dL 74-106 [facility] Comment on above: Fasting Glucose resu lt from 100 to 125 mg/dL suggests IMPAIRED HOMEOSTASIS per A.D.A. criteria. Hemoglobin (Bld) [Mass/Vol] 9.7 g/dL 13.0-16.5 [facility] Monocytes/100 WBC (Bld) 15.0 % 0-10 [facility] Neutrophils (Bld) [#/Vol] 5.7 10*3/uL 2.0-7.7 [facility] Neutrophils/100 WBC (Bld) 63.1 % 47-70 [facility] Potassium [Moles/Vol] 3.7 mmol/L 3.5-5.1 [facility] Sodium [Moles/Vol] 138 mmol/L 136-145 [facility] WBC (Bld) [#/Vol] 9.1 10*3/uL 4.4-11.0 [facility] Determination of erythrocyte mean corpuscular volume (MCV)Ordered By: Klaudia Gonzales on 12-08-2023 MCV (RBC) [Entitic vol] 93.4 fL 80-94 [facility] Erythrocyte distribution wid th ratioOrdered By: Klaudia Gonzales on 12-08-2023 Erythrocyte distribution width (RBC) [Ratio] 15.2 % 11.6-14.6 [facility] Erythrocyte distribution wid th standard deviationOrdered By: Klaudia Gonzales on 12-08-2023 Erythrocyte distribution width (RBC) [Entitic vol] 52.7 fL 35.1-43.9 [facility] Hematocrit Auto (Bld) [Volum e fraction]Ordered By: Klaudia Gonzales on 12-08-2023 Hematocrit (Bld) [Volume fraction] 29.8 % 40-54 [facility] Immature granulocytes/100 WB C Auto (Bld)Ordered By: Klaudia Gonzales on 12-08-2023 Immature granulocytes/100 WBC (Bld) 0.800 % 0.0-0.9 [facility] Comment on above: IG% - Immature Granu locytes (promyelocytes, myelocytes and metamyelocytes) > 1% indicates that a LEFT SHIFT is Present. Laboratory - Chemistry and C hemistry - challengeOrdered By: Klaudia Gonzales on 12-08-2023 CO2 [Moles/Vol] 28.0 mmol/L 21.0-32.0 [facility] Urea nitrogen/Creatinine [Mass ratio] 19.2 mg/mg 10-20 [facility] Laboratory - Hematology and Cell countsOrdered By: Klaudia Gonzales on 12-08-2023 MCH (RBC) [Entitic mass] 30.4 pg 27.0-32.0 [facility] MCHC (RBC) [Mass/Vol] 32.6 g/dL 32-36 [facility] Nucleated RBC/100 WBC (Bld) [Ratio] 0 % 0-5 [facility] Platelet mean volume (Bld) [Entitic vol] 10.4 fL 6.2-12.0 [facility] Platelets (Bld) [#/Vol] 134 10*3/uL 150-450 [facility] No Panel InformationOrdered By: Klaudia Gonzales on 12-08-2023 Atypical Lymphocytes RARE % [facility] Estimated Creatinine Clearance Calc 50.84 ml/min [facility] Estimated GFR (MDRD) Amer 67 mL/min >60 [facility] Comment on above: GFR Calc Estimated GFR (MDRD) Non-Af Amer 56 mL/min >60 [facility] Comment on above: Non- GFR Calc RBC Auto (Bld) [#/Vol]Ordere d By: Klaudia Gonzales on 12-08-2023 RBC (Bld) [#/Vol] 3.19 10*6/uL 4.6-6.2 [facility] Serum or plasma calcium tay urement (mass/volume)Ordered By: Klaudia Gonzales on 12-08-2023 Calcium [Mass/Vol] 8.7 mg/dL 8.5-10.1 [facility] Serum or plasma creatinine m easurement (mass/volume)Ordered By: Klaudia Gonzales on 12-08-2023 Creatinine [Mass/Vol] 1.30 mg/dL 0.70-1.30 [facility] Comment on above: The validity of the calculated GFR & GFRAA in patients over 70 years has not been determined. Clinical correlation is essential. Serum or plasma urea nitroge n measurement (mass/volume)Ordered By: Klaudia Gonzales on 12-08-2023 Urea nitrogen [Mass/Vol] 25 mg/dL 7-18 [facility] Thin prep Papanicolaou smear with manual screeningOrdered By: Klaudia Gonzales on 12-08-2023 Thin prep Papanicolaou smear with manual screening 6 5-15 [facility] Blood manual differential co mment interpretation (narrative result)Ordered By: Klaudia Gonzales on 12-07-2023 Manual differential comment Theodore (Bld) [Interp] SCANNED [facility] Laboratory - Chemistry and C hemistry - challengeOrdered By: Vanessa Simmons on 12-07-2023 Magnesium [Mass/Vol] 2.0 mg/dL 1.6-2.6 [facility] Activated partial thrombopla stin time (aPTT) in platelet poor plasma by coagulation aOrdered By: Miguelito Laguna on 12-03-2023 aPTT Coag (PPP) [Time] 71.0 s 24.1-36.2 [facility] Review by pathologistOrdered By: Miguelito Laguna on 12-03-2023 Pathologist review Theodore (Unsp spec) [Interp] Reviewed [facility] Comment on above: Previous reported re sult: Jeri rojas Edited by: NORA on 12/06/23:1403Neutrophilic leukocytosis with left shift.Normocytic anemia.Mild Thrombocytopenia.Clinical correlation necessary.Marcelo Perez M.D. 12/06/23 AMENDED REPORT 12/06/23 1403 PATH REV previously reported as: Jeri rojas Absolute lymphocyte countOrd ered By: Antonio James on 12-02-2023 Lymphocytes Auto (Unsp spec) [#/Vol] 1.02 10*3/uL 0.83-4.51 [facility] Activated partial thrombopla stin time (aPTT) in platelet poor plasma by coagulation aOrdered By: Antonio James on 12-02-2023 aPTT Coag (PPP) [Time] 34.4 s 24.1-36.2 [facility] Assessment of wrist artery p atency prior to arterial punctureOrdered By: Antonio James on 12-02-2023 Arterial patency Wrist artery --pre arterial puncture Positive [facility] Automated lymphocyte count a s percentage of total leukocytesOrdered By: Antonio James on 12-02-2023 Lymphocytes/100 WBC Auto (Unsp spec) 11.5 % 19-41 [facility] Base excessOrdered By: Antonio James on 12-02-2023 Base excess Calc (BldV) [Moles/Vol] 1 mmol/L -2-2 [facility] Basophil percentageOrdered B y: Antonio James on 12-02-2023 Lactate [Moles/Vol] 2.3 mmol/L 0.4-2.0 [facility] Comment on above: Critical Result(s) C alled at: 18:41:24 12/02/2023 by: Ev Meneses. Results read back by same. Basophil percentage 26 mmol/L [facility] Basophils/100 WBC (Bld) 93 % 95-99 [facility] Basophil percentage 10-25 SEEN /hpf 0-5 [facility] Chloride [Moles/Vol] 100 mmol/L 98-107 [facility] Glucose [Mass/Vol] 134 mg/dL 74-106 [facility] Comment on above: Fasting Glucose resu lt greater than or equal to 126 mg/dL suggests DIABETES MELLITUS per A.D.A. criteria. Lactate [Moles/Vol] 2.1 mmol/L 0.4-2.0 [facility] Comment on above: Critical Result(s) C alled at: 14:16:35 12/02/2023 by: Lili Ricardo. Results read back by same. Potassium [Moles/Vol] 3.8 mmol/L 3.5-5.1 [facility] Sodium [Moles/Vol] 134 mmol/L 136-145 [facility] Basophils/100 WBC (Bld) 0.2 % 0-1 [facility] Eosinophils/100 WBC (Bld) 0.5 % 0-5 [facility] Hemoglobin (Bld) [Mass/Vol] 12.3 g/dL 13.0-16.5 [facility] Monocytes/100 WBC (Bld) 4.1 % 0-10 [facility] Neutrophils (Bld) [#/Vol] 7.4 10*3/uL 2.0-7.7 [facility] Neutrophils/100 WBC (Bld) 83.1 % 47-70 [facility] WBC (Bld) [#/Vol] 8.9 10*3/uL 4.4-11.0 [facility] Bilirubin Test strip Ql (U)O rdered By: Antonio James on 12-02-2023 Bilirubin Ql (U) Negative Negative [facility] Culture, urineOrdered By: Jus James on 12-02-2023 Bacteria identified Cx Nom (U) Escherichia coli [facility] Determination of erythrocyte mean corpuscular volume (MCV)Ordered By: Antonio James on 12-02-2023 MCV (RBC) [Entitic vol] 95.2 fL 80-94 [facility] Erythrocyte distribution wid th ratioOrdered By: Antonio James on 12-02-2023 Erythrocyte distribution width (RBC) [Ratio] 15.0 % 11.6-14.6 [facility] Erythrocyte distribution wid th standard deviationOrdered By: Antonio James on 12-02-2023 Erythrocyte distribution width (RBC) [Entitic vol] 52.5 fL 35.1-43.9 [facility] Hematocrit Auto (Bld) [Volum e fraction]Ordered By: Antonio James on 12-02-2023 Hematocrit (Bld) [Volume fraction] 39.3 % 40-54 [facility] Immature granulocytes/100 WB C Auto (Bld)Ordered By: Antonio James on 12-02-2023 Immature granulocytes/100 WBC (Bld) 0.600 % 0.0-0.9 [facility] Comment on above: IG% - Immature Granu locytes (promyelocytes, myelocytes and metamyelocytes) > 1% indicates that a LEFT SHIFT is Present. Ketones Test strip Ql (U)Ord ered By: Antonio James on 12-02-2023 Ketones Ql (U) Negative Negative [facility] Laboratory - Chemistry and C hemistry - challengeOrdered By: Antonio James on 12-02-2023 CO2 [Moles/Vol] 29.0 mmol/L 21.0-32.0 [facility] Urea nitrogen/Creatinine [Mass ratio] 14.2 mg/mg 10-20 [facility] Laboratory - CoagulationOrde red By: Antonio James on 12-02-2023 INR Coag (Bld) [Relative time] 1.2 {INR} [facility] PT Coag (PPP) [Time] 15.1 s 11.7-14.9 [facility] Laboratory - Hematology and Cell countsOrdered By: Antonio James on 12-02-2023 MCH (RBC) [Entitic mass] 29.8 pg 27.0-32.0 [facility] MCHC (RBC) [Mass/Vol] 31.3 g/dL 32-36 [facility] Nucleated RBC/100 WBC (Bld) [Ratio] 0 % 0-5 [facility] Platelet mean volume (Bld) [Entitic vol] 11.4 fL 6.2-12.0 [facility] Platelets (Bld) [#/Vol] 125 10*3/uL 150-450 [facility] Laboratory - Microbiology an d Antimicrobial susceptibilityOrdered By: Antonio James on 12-02-2023 Bacteria identified Cx Nom (Bld) 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 [facility] SARS-CoV-2 (COVID-19) RNA ANA+probe Ql (Unsp spec) [facility] Measurement, pHOrdered By: Maria Del Carmen James on 12-02-2023 pH (Unsp spec) 7.48 [pH] 7.35-7.45 [facility] Mucus LM Ql (Urine sed)Order ed By: Antonio James on 12-02-2023 Mucus Ql (Urine sed) 0 SEEN /hpf [facility] Nitrite Test strip Ql (U)Ord ered By: Antonio James on 12-02-2023 Nitrite Ql (U) Negative Negative [facility] No Panel InformationOrdered By: Antonio James on 12-02-2023 Troponin I High Sensitivity 829 pg/mL 3.0-78.0 [facility] Comment on above: Critical Result(s) C alled at: 17:02:54 12/02/2023 by: Ev Zaidi to [facility]. Results read back by same. Please Note: New Test Units and Gender Specific Reference Ranges. For more information see Policy Stat Procedure [place] High Sensitivity Troponin (TNIH) and attachments. Arterial Blood Partial Pressure CO2 33.1 mmHg 35-45 [facility] Arterial Blood Partial Pressure O2 62 mmHG 75-100 [facility] Blood Gas Bicarbonate Actual 24.6 mmol/L 22-26 [facility] Blood Gas Oxygen Percent 21.0 [facility] Blood Gas Sample Site R Radial [facility] Blood Gas Specimen Type ART [facility] Blood Gas Vent Mode Not entered [facility] Oxygen Delivery Device Room Air [facility] Urine RBC 0-5 SEEN /hpf 0-5 [facility] Estimated Creatinine Clearance Calc 63.01 ml/min [facility] Estimated GFR (MDRD) Amer 85 mL/min >60 [facility] Comment on above: GFR Calc Estimated GFR (MDRD) Non-Af Amer 70 mL/min >60 [facility] Comment on above: Non- GFR Calc Protein Test strip Ql (U)Ord ered By: Antonio James on 12-02-2023 Protein Ql (U) 15 mg/dl Negative [facility] RBC Auto (Bld) [#/Vol]Ordere d By: Antonio James on 12-02-2023 RBC (Bld) [#/Vol] 4.13 10*6/uL 4.6-6.2 [facility] Serum or plasma calcium tay urement (mass/volume)Ordered By: Antonio James on 12-02-2023 Calcium [Mass/Vol] 9.6 mg/dL 8.5-10.1 [facility] Serum or plasma cardiac trop onin I panel by high sensitivity methodOrdered By: Antonio James on 12-02-2023 Tropinin I.cardiac panel High sensitivity method 912 pg/mL 3.0-78.0 [facility] Comment on above: Critical Result(s) C alled at: 14:16:35 12/02/2023 by: Lili ravi [facility]. Results read back by same. Please Note: New Test Units and Gender Specific Reference Ranges. For more information see Policy Stat Procedure [place] High Sensitivity Troponin (TNIH) and attachments. Serum or plasma creatinine m easurement (mass/volume)Ordered By: Antonio James on 12-02-2023 Creatinine [Mass/Vol] 1.06 mg/dL 0.70-1.30 [facility] Comment on above: The validity of the calculated GFR & GFRAA in patients over 70 years has not been determined. Clinical correlation is essential. Serum or plasma urea nitroge n measurement (mass/volume)Ordered By: Antonio James on 12-02-2023 Urea nitrogen [Mass/Vol] 15 mg/dL 7-18 [facility] Squamous epithelial cells de tection in urine sediment by light microscopyOrdered By: Antonio James on 12-02-2023 Epithelial cells.squamous LM Ql (Urine sed) 0 SEEN /hpf 0-5 [facility] Thin prep Papanicolaou smear with manual screeningOrdered By: Antonio James on 12-02-2023 Thin prep Papanicolaou smear with manual screening 5 5-15 [facility] Urine blood detectionOrdered By: Antonio James on 12-02-2023 RBC Ql (U) 50 /ul Negative [facility] Urine clarityOrdered By: Anastacia James on 12-02-2023 Clarity (U) Sl. Cloudy Clear [facility] Urine color determinationOrd ered By: Antonio James on 12-02-2023 Color (U) Yellow Yellow [facility] Urine glucose detectionOrder ed By: Antonio James on 12-02-2023 Glucose Ql (U) Normal mg/dl Normal [facility] Urine leukocyte esterase det ection by dipstickOrdered By: Antonio James on 12-02-2023 Leukocyte esterase Test strip Ql (U) 100 /ul Negative [facility] Urine pHOrdered By: Antonio blackburn on 12-02-2023 pH (U) 7.0 [pH] 5.0 - 8.0 [facility] Urine sediment bacteria coun t by microscopy (number/high power field)Ordered By: Antonio James on 12-02-2023 Bacteria LM.HPF (Urine sed) [#/Area] 1 /[HPF] None Seen [facility] Urine specific gravity measu rementOrdered By: Antonio James on 12-02-2023 Specific gravity (U) [Rel density] 1.010 1.002-1.030 [facility] Urine urobilinogen measureme ntOrdered By: Antonio James on 12-02-2023 Urobilinogen Ql (U) Normal mg/dl Normal [facility] Absolute lymphocyte countOrd ered By: zackeryrileylilli Mario on 08-15-2023 Lymphocytes Auto (Unsp spec) [#/Vol] 1.89 10*3/uL 0.83-4.51 [facility] Basophil percentageOrdered B y: Addi Mario on 08-15-2023 Basophils/100 WBC (Bld) 0.4 % 0-1 [facility] Bilirubin [Mass/Vol] 0.40 mg/dL 0.20-1.00 [facility] Comment on above: For patients on eltr ombopag therapy, use of Dimension [place] TBIL is not recommended. Chloride [Moles/Vol] 104 mmol/L 98-107 [facility] Eosinophils/100 WBC (Bld) 1.5 % 0-5 [facility] Glucose [Mass/Vol] 107 mg/dL 74-106 [facility] Comment on above: Fasting Glucose resu lt from 100 to 125 mg/dL suggests IMPAIRED HOMEOSTASIS per A.D.A. criteria. Neutrophils (Bld) [#/Vol] 4.6 10*3/uL 2.0-7.7 [facility] Neutrophils/100 WBC (Bld) 62.0 % 47-70 [facility] Potassium [Moles/Vol] 4.4 mmol/L 3.5-5.1 [facility] Protein [Mass/Vol] 7.4 g/dL 6.4-8.2 [facility] Sodium [Moles/Vol] 141 mmol/L 136-145 [facility] WBC (Bld) [#/Vol] 7.4 10*3/uL 4.4-11.0 [facility] Blood erythrocytes count (nu mber/volume)Ordered By: Addi Mario on 08-15-2023 RBC (Bld) [#/Vol] 3.96 10*6/uL 4.6-6.2 [facility] Blood hemoglobin measurement (mass/volume)Ordered By: Addi Mario on 08-15-2023 Hemoglobin (Bld) [Mass/Vol] 12.1 g/dL 13.0-16.5 [facility] Blood lymphocytes/100 leukoc ytesOrdered By: zackeryrileylilli Mario on 08-15-2023 Lymphocytes/100 WBC (Bld) 25.5 % 19-41 [facility] Blood monocytes/100 leukocyt esOrdered By: zackeryrileylilli Mario on 08-15-2023 Monocytes/100 WBC (Bld) 10.3 % 0-10 [facility] Blood platelet mean volumeOr dered By: Addi Mario on 08-15-2023 Platelet mean volume (Bld) [Entitic vol] 11.0 fL 6.2-12.0 [facility] Determination of erythrocyte mean corpuscular volume (MCV)Ordered By: Addi Mario on 08-15-2023 MCV (RBC) [Entitic vol] 98.7 fL 80-94 [facility] Hematocrit Auto (Bld) [Volum e fraction]Ordered By: Addi Mario on 08-15-2023 Hematocrit (Bld) [Volume fraction] 39.1 % 40-54 [facility] Laboratory - Chemistry and C hemistry - challengeOrdered By: Addi Mario on 08-15-2023 ALP [Catalytic activity/Vol] 80 U/L 45-117 [facility] ALT [Catalytic activity/Vol] 24 U/L 16-61 [facility] CO2 [Moles/Vol] 33.0 mmol/L 21.0-32.0 [facility] Globulin (S) [Mass/Vol] 4.4 g/dL 2.2-4.2 [facility] Urea nitrogen/Creatinine [Mass ratio] 15.1 mg/mg 10-20 [facility] Laboratory - Hematology and Cell countsOrdered By: Addi Mario on 08-15-2023 Erythrocyte distribution width (RBC) [Entitic vol] 57.6 fL 35.1-43.9 [facility] Erythrocyte distribution width (RBC) [Ratio] 15.8 % 11.6-14.6 [facility] Immature granulocytes/100 WBC (Bld) 0.300 % 0.0-0.9 [facility] Comment on above: IG% - Immature Granu locytes (promyelocytes, myelocytes and metamyelocytes) > 1% indicates that a LEFT SHIFT is Present. MCH (RBC) [Entitic mass] 30.6 pg 27.0-32.0 [facility] Nucleated RBC/100 WBC (Bld) [Ratio] 0 % 0-5 [facility] MCHC Auto (RBC) [Mass/Vol]Or dered By: Addi Mario on 08-15-2023 MCHC (RBC) [Mass/Vol] 30.9 g/dL 32-36 [facility] No Panel InformationOrdered By: Addi Mario on 08-15-2023 Estimated GFR (MDRD) Amer 108 mL/min >60 [facility] Comment on above: GFR Calc Estimated GFR (MDRD) Non-Af Amer 90 mL/min >60 [facility] Comment on above: Non- GFR Calc Platelets bldOrdered By: Sonny Mario on 08-15-2023 Platelets (Bld) [#/Vol] 158 10*3/uL 150-450 [facility] Serum or plasma albumin tay urement (mass/volume)Ordered By: Addi Mario on 08-15-2023 Albumin [Mass/Vol] 3.0 g/dL 3.2-5.0 [facility] Serum or plasma albumin/glob ulin mass ratioOrdered By: Addi Mario on 08-15-2023 Albumin/Globulin [Mass ratio] 0.7 {ratio} 0.9-2.4 [facility] Serum or plasma calcium tay urement (mass/volume)Ordered By: Addi Mario on 08-15-2023 Calcium [Mass/Vol] 9.0 mg/dL 8.5-10.1 [facility] Serum or plasma creatinine m easurement (mass/volume)Ordered By: Addi Mario on 08-15-2023 Creatinine [Mass/Vol] 0.86 mg/dL 0.70-1.30 [facility] Comment on above: The validity of the calculated GFR & GFRAA in patients over 70 years has not been determined. Clinical correlation is essential. Serum or plasma urea nitroge n measurement (mass/volume)Ordered By: Addi Mario on 08-15-2023 Urea nitrogen [Mass/Vol] 13 mg/dL 7-18 [facility] Thin prep Papanicolaou smear with manual screeningOrdered By: Addi Mario on 08-15-2023 Thin prep Papanicolaou smear with manual screening 27 U/L 15-37 [facility] Thin prep Papanicolaou smear with manual screening 4 5-15 [facility] Influenza virus A and B and SARS-CoV-2 (COVID-19) Ag panel - Upper respiratory specimOrdered By: Marisol Crum on 04-22-2023 SARS-CoV-2 & FLU Antigen (Rapid) SARS-CoV-2 (COVID 19) [facility] Absolute lymphocyte countOrd ered By: Addi Mario on 03-23-2023 Lymphocytes Auto (Unsp spec) [#/Vol] 1.86 10*3/uL 0.83-4.51 [facility] Basophil percentageOrdered B y: Addi Mario on 03-23-2023 Basophils/100 WBC (Bld) 0.6 % 0-1 [facility] Bilirubin [Mass/Vol] 0.40 mg/dL 0.20-1.00 [facility] Comment on above: For patients on eltr ombopag therapy, use of Dimension [place] TBIL is not recommended. Eosinophils/100 WBC (Bld) 2.5 % 0-5 [facility] Neutrophils (Bld) [#/Vol] 3.6 10*3/uL 2.0-7.7 [facility] Neutrophils/100 WBC (Bld) 56.1 % 47-70 [facility] Protein [Mass/Vol] 7.5 g/dL 6.4-8.2 [facility] WBC (Bld) [#/Vol] 6.4 10*3/uL 4.4-11.0 [facility] Blood erythrocytes count (nu mber/volume)Ordered By: Addi Mario on 03-23-2023 RBC (Bld) [#/Vol] 3.82 10*6/uL 4.6-6.2 [facility] Blood hemoglobin measurement (mass/volume)Ordered By: Addi Mario on 03-23-2023 Hemoglobin (Bld) [Mass/Vol] 11.7 g/dL 13.0-16.5 [facility] Blood lymphocytes/100 leukoc ytesOrdered By: Addi Mario on 03-23-2023 Lymphocytes/100 WBC (Bld) 29.1 % 19-41 [facility] Blood monocytes/100 leukocyt esOrdered By: Addi Mario on 03-23-2023 Monocytes/100 WBC (Bld) 11.4 % 0-10 [facility] Blood platelet mean volumeOr dered By: Addi Mario on 03-23-2023 Platelet mean volume (Bld) [Entitic vol] 11.5 fL 6.2-12.0 [facility] Determination of erythrocyte mean corpuscular volume (MCV)Ordered By: Addi Mario on 03-23-2023 MCV (RBC) [Entitic vol] 98.7 fL 80-94 [facility] Direct bilirubinOrdered By: Addi Mario on 03-23-2023 Bilirubin.direct [Mass/Vol] 0.13 mg/dL 0.00-0.30 [facility] Hematocrit Auto (Bld) [Volum e fraction]Ordered By: Addi Mario on 03-23-2023 Hematocrit (Bld) [Volume fraction] 37.7 % 40-54 [facility] INR in Blood by Coagulation assayOrdered By: Addi Mario on 03-23-2023 INR Coag (Bld) [Relative time] 1.1 {INR} [facility] Laboratory - Chemistry and C hemistry - challengeOrdered By: Addi Mario on 03-23-2023 ALP [Catalytic activity/Vol] 85 U/L 45-117 [facility] ALT [Catalytic activity/Vol] 21 U/L 16-61 [facility] Cobalamin (Vitamin B12) [Mass/Vol] 623 pg/mL 211-911 [facility] Globulin (S) [Mass/Vol] 4.4 g/dL 2.2-4.2 [facility] Laboratory - CoagulationOrde red By: Addi Mario on 03-23-2023 aPTT Coag (Bld) [Time] 33.5 s 24.1-36.2 [facility] PT Coag (PPP) [Time] 14.5 s 11.7-14.9 [facility] Laboratory - Hematology and Cell countsOrdered By: Addi Mario on 03-23-2023 Erythrocyte distribution width (RBC) [Entitic vol] 54.5 fL 35.1-43.9 [facility] Erythrocyte distribution width (RBC) [Ratio] 15.0 % 11.6-14.6 [facility] Immature granulocytes/100 WBC (Bld) 0.300 % 0.0-0.9 [facility] Comment on above: IG% - Immature Granu locytes (promyelocytes, myelocytes and metamyelocytes) > 1% indicates that a LEFT SHIFT is Present. MCH (RBC) [Entitic mass] 30.6 pg 27.0-32.0 [facility] Nucleated RBC/100 WBC (Bld) [Ratio] 0 % 0-5 [facility] MCHC Auto (RBC) [Mass/Vol]Or dered By: Addi Mario on 03-23-2023 MCHC (RBC) [Mass/Vol] 31.0 g/dL 32-36 [facility] Platelets bldOrdered By: Sonny Mario on 03-23-2023 Platelets (Bld) [#/Vol] 148 10*3/uL 150-450 [facility] Serum or plasma albumin tay urement (mass/volume)Ordered By: Addi Mario on 03-23-2023 Albumin [Mass/Vol] 3.1 g/dL 3.2-5.0 [facility] Thin prep Papanicolaou smear with manual screeningOrdered By: Addi Mario on 03-23-2023 Thin prep Papanicolaou smear with manual screening 31 U/L 15-37 [facility] Absolute lymphocyte countOrd ered By: Dr. Ferrera on 03-12-2023 Lymphocytes Auto (Unsp spec) [#/Vol] 2.23 10*3/uL 0.83-4.51 [facility] Basophil percentageOrdered B y: Dr. Ferrera on 03-12-2023 Basophils/100 WBC (Bld) 0.6 % 0-1 [facility] Chloride [Moles/Vol] 104 mmol/L 98-107 [facility] Eosinophils/100 WBC (Bld) 3.2 % 0-5 [facility] Glucose [Mass/Vol] 88 mg/dL 74-106 [facility] Neutrophils (Bld) [#/Vol] 3.6 10*3/uL 2.0-7.7 [facility] Neutrophils/100 WBC (Bld) 51.9 % 47-70 [facility] Potassium [Moles/Vol] 4.1 mmol/L 3.5-5.1 [facility] Sodium [Moles/Vol] 137 mmol/L 136-145 [facility] WBC (Bld) [#/Vol] 6.9 10*3/uL 4.4-11.0 [facility] Blood erythrocytes count (nu mber/volume)Ordered By: Dr. Ferrera on 03-12-2023 RBC (Bld) [#/Vol] 3.86 10*6/uL 4.6-6.2 [facility] Blood hemoglobin measurement (mass/volume)Ordered By: Dr. Ferrera on 03-12-2023 Hemoglobin (Bld) [Mass/Vol] 11.9 g/dL 13.0-16.5 [facility] Blood lymphocytes/100 leukoc ytesOrdered By: Dr. Ferrera on 03-12-2023 Lymphocytes/100 WBC (Bld) 32.4 % 19-41 [facility] Blood monocytes/100 leukocyt esOrdered By: Dr. Ferrera on 03-12-2023 Monocytes/100 WBC (Bld) 11.6 % 0-10 [facility] Blood platelet mean volumeOr dered By: Dr. Ferrera on 03-12-2023 Platelet mean volume (Bld) [Entitic vol] 11.0 fL 6.2-12.0 [facility] Determination of erythrocyte mean corpuscular volume (MCV)Ordered By: Dr. Ferrera on 03-12-2023 MCV (RBC) [Entitic vol] 97.4 fL 80-94 [facility] Hematocrit Auto (Bld) [Volum e fraction]Ordered By: Dr. Ferrera on 03-12-2023 Hematocrit (Bld) [Volume fraction] 37.6 % 40-54 [facility] Laboratory - Chemistry and C hemistry - challengeOrdered By: Dr. Ferrera on 03-12-2023 CO2 [Moles/Vol] 30.0 mmol/L 21.0-32.0 [facility] Urea nitrogen/Creatinine [Mass ratio] 21.5 mg/mg 10-20 [facility] Laboratory - Hematology and Cell countsOrdered By: Dr. Ferrera on 03-12-2023 Erythrocyte distribution width (RBC) [Entitic vol] 54.1 fL 35.1-43.9 [facility] Erythrocyte distribution width (RBC) [Ratio] 15.1 % 11.6-14.6 [facility] Immature granulocytes/100 WBC (Bld) 0.300 % 0.0-0.9 [facility] Comment on above: IG% - Immature Granu locytes (promyelocytes, myelocytes and metamyelocytes) > 1% indicates that a LEFT SHIFT is Present. MCH (RBC) [Entitic mass] 30.8 pg 27.0-32.0 [facility] Nucleated RBC/100 WBC (Bld) [Ratio] 0 % 0-5 [facility] MCHC Auto (RBC) [Mass/Vol]Or dered By: Dr. Ferrera on 03-12-2023 MCHC (RBC) [Mass/Vol] 31.6 g/dL 32-36 [facility] No Panel InformationOrdered By: Dr. Ferrera on 03-12-2023 Troponin I High Sensitivity 407 pg/mL 3.0-78.0 [facility] Comment on above: Critical Result(s) C alled at: 14:27:56 03/12/2023 by: Lili Tom to [facility]. Results read back by same. Please Note: New Test Units and Gender Specific Reference Ranges. For more information see Policy Stat Procedure [place] High Sensitivity Troponin (TNIH) and attachments. Estimated Creatinine Clearance Calc 58.20 ml/min [facility] Estimated GFR (MDRD) Amer 138 mL/min >60 [facility] Comment on above: GFR Calc Estimated GFR (MDRD) Non-Af Amer 114 mL/min >60 [facility] Comment on above: Non- GFR Calc Platelets bldOrdered By: Dr. Ferrera on 03-12-2023 Platelets (Bld) [#/Vol] 141 10*3/uL 150-450 [facility] Serum or plasma calcium tay urement (mass/volume)Ordered By: Dr. Ferrera on 03-12-2023 Calcium [Mass/Vol] 9.6 mg/dL 8.5-10.1 [facility] Serum or plasma creatinine m easurement (mass/volume)Ordered By: Dr. Ferrera on 03-12-2023 Creatinine [Mass/Vol] 0.70 mg/dL 0.70-1.30 [facility] Comment on above: The validity of the calculated GFR & GFRAA in patients over 70 years has not been determined. Clinical correlation is essential. Serum or plasma urea nitroge n measurement (mass/volume)Ordered By: Dr. Ferrera on 03-12-2023 Urea nitrogen [Mass/Vol] 15 mg/dL 7-18 [facility] Thin prep Papanicolaou smear with manual screeningOrdered By: Dr. Ferrera on 03-12-2023 Thin prep Papanicolaou smear with manual screening 3 5-15 [facility] Stool gastrointestinal hemog lobin detection by immunologic methodOrdered By: Dr. Mario on 09-08-2022 Lower GI hemoglobin IA Ql (Stl) [facility] Absolute lymphocyte countOrd ered By: Dr. Mario on 09-04-2022 Lymphocytes Auto (Unsp spec) [#/Vol] 1.91 10*3/uL 0.83-4.51 [facility] Basophil percentageOrdered B y: Dr. Mario on 09-04-2022 Basophils/100 WBC (Bld) 0.5 % 0-1 [facility] Eosinophils/100 WBC (Bld) 3.3 % 0-5 [facility] Neutrophils (Bld) [#/Vol] 3.1 10*3/uL 2.0-7.7 [facility] Neutrophils/100 WBC (Bld) 52.2 % 47-70 [facility] WBC (Bld) [#/Vol] 6.0 10*3/uL 4.4-11.0 [facility] Blood erythrocytes count (nu mber/volume)Ordered By: Dr. Mario on 09-04-2022 RBC (Bld) [#/Vol] 4.08 10*6/uL 4.6-6.2 [facility] Blood hemoglobin measurement (mass/volume)Ordered By: Dr. Mario on 09-04-2022 Hemoglobin (Bld) [Mass/Vol] 12.5 g/dL 13.0-16.5 [facility] Blood lymphocytes/100 leukoc ytesOrdered By: Dr. Mario on 09-04-2022 Lymphocytes/100 WBC (Bld) 31.9 % 19-41 [facility] Blood monocytes/100 leukocyt esOrdered By: Dr. Mario on 09-04-2022 Monocytes/100 WBC (Bld) 11.9 % 0-10 [facility] Blood platelet mean volumeOr dered By: Dr. Mario on 09-04-2022 Platelet mean volume (Bld) [Entitic vol] 11.1 fL 6.2-12.0 [facility] Determination of erythrocyte mean corpuscular volume (MCV)Ordered By: Dr. Mario on 09-04-2022 MCV (RBC) [Entitic vol] 99.8 fL 80-94 [facility] Hematocrit Auto (Bld) [Volum e fraction]Ordered By: Dr. Mario on 09-04-2022 Hematocrit (Bld) [Volume fraction] 40.7 % 40-54 [facility] Laboratory - Hematology and Cell countsOrdered By: Dr. Mario on 09-04-2022 Erythrocyte distribution width (RBC) [Entitic vol] 52.1 fL 35.1-43.9 [facility] Erythrocyte distribution width (RBC) [Ratio] 14.2 % 11.6-14.6 [facility] Immature granulocytes/100 WBC (Bld) 0.200 % 0.0-0.9 [facility] Comment on above: IG% - Immature Granu locytes (promyelocytes, myelocytes and metamyelocytes) > 1% indicates that a LEFT SHIFT is Present. MCH (RBC) [Entitic mass] 30.6 pg 27.0-32.0 [facility] Nucleated RBC/100 WBC (Bld) [Ratio] 0 % 0-5 [facility] MCHC Auto (RBC) [Mass/Vol]Or dered By: Dr. Mario on 09-04-2022 MCHC (RBC) [Mass/Vol] 30.7 g/dL 32-36 [facility] Platelets bldOrdered By: Dr. Mario on 09-04-2022 Platelets (Bld) [#/Vol] 146 10*3/uL 150-450 [facility] Serum or plasma folate measu rement (mass/volume)Ordered By: Dr. Mario on 09-04-2022 Folate [Mass/Vol] 77.60 ng/mL 3.1-55.4 [facility] Absolute lymphocyte countOrd ered By: Dr. Peña on 08-24-2022 Lymphocytes Auto (Unsp spec) [#/Vol] 1.66 10*3/uL 0.83-4.51 [facility] Basophil percentageOrdered B y: Dr. Peña on 08-24-2022 Basophils/100 WBC (Bld) 0.3 % 0-1 [facility] Chloride [Moles/Vol] 107 mmol/L 98-107 [facility] Eosinophils/100 WBC (Bld) 3.8 % 0-5 [facility] Glucose [Mass/Vol] 103 mg/dL 74-106 [facility] Comment on above: Fasting Glucose resu lt from 100 to 125 mg/dL suggests IMPAIRED HOMEOSTASIS per A.D.A. criteria. Neutrophils (Bld) [#/Vol] 3.3 10*3/uL 2.0-7.7 [facility] Neutrophils/100 WBC (Bld) 54.8 % 47-70 [facility] Potassium [Moles/Vol] 4.0 mmol/L 3.5-5.1 [facility] Sodium [Moles/Vol] 140 mmol/L 136-145 [facility] WBC (Bld) [#/Vol] 6.0 10*3/uL 4.4-11.0 [facility] Blood erythrocytes count (nu mber/volume)Ordered By: Dr. Peña on 08-24-2022 RBC (Bld) [#/Vol] 4.00 10*6/uL 4.6-6.2 [facility] Blood hemoglobin measurement (mass/volume)Ordered By: Dr. Peña on 08-24-2022 Hemoglobin (Bld) [Mass/Vol] 12.5 g/dL 13.0-16.5 [facility] Blood lymphocytes/100 leukoc ytesOrdered By: Dr. Peña on 08-24-2022 Lymphocytes/100 WBC (Bld) 27.5 % 19-41 [facility] Blood monocytes/100 leukocyt esOrdered By: Dr. Peña on 08-24-2022 Monocytes/100 WBC (Bld) 13.4 % 0-10 [facility] Blood platelet mean volumeOr dered By: Dr. Peña on 08-24-2022 Platelet mean volume (Bld) [Entitic vol] 10.4 fL 6.2-12.0 [facility] Determination of erythrocyte mean corpuscular volume (MCV)Ordered By: Dr. Peña on 08-24-2022 MCV (RBC) [Entitic vol] 97.8 fL 80-94 [facility] Hematocrit Auto (Bld) [Volum e fraction]Ordered By: Dr. Peña on 08-24-2022 Hematocrit (Bld) [Volume fraction] 39.1 % 40-54 [facility] INR in Blood by Coagulation assayOrdered By: Dr. Peña on 08-24-2022 INR Coag (Bld) [Relative time] 1.1 {INR} [facility] Laboratory - Chemistry and C hemistry - challengeOrdered By: Dr. Peña on 08-24-2022 CO2 [Moles/Vol] 31.0 mmol/L 21.0-32.0 [facility] Urea nitrogen/Creatinine [Mass ratio] 21.3 mg/mg 10-20 [facility] - CoagulationOrde red By: Dr. Peña on 08-24-2022 aPTT Coag (Bld) [Time] 31.1 s 24.1-36.2 [facility] PT Coag (PPP) [Time] 14.0 s 11.7-14.9 [facility] Laboratory - Hematology and Cell countsOrdered By: Dr. Peña on 08-24-2022 Erythrocyte distribution width (RBC) [Entitic vol] 51.5 fL 35.1-43.9 [facility] Erythrocyte distribution width (RBC) [Ratio] 14.2 % 11.6-14.6 [facility] Immature granulocytes/100 WBC (Bld) 0.200 % 0.0-0.9 [facility] Comment on above: IG% - Immature Granu locytes (promyelocytes, myelocytes and metamyelocytes) > 1% indicates that a LEFT SHIFT is Present. MCH (RBC) [Entitic mass] 31.3 pg 27.0-32.0 [facility] Nucleated RBC/100 WBC (Bld) [Ratio] 0 % 0-5 [facility] MCHC Auto (RBC) [Mass/Vol]Or dered By: Dr. Peña on 08-24-2022 MCHC (RBC) [Mass/Vol] 32.0 g/dL 32-36 [facility] No Panel InformationOrdered By: Dr. Peña on 08-24-2022 Estimated Creatinine Clearance Calc 59.28 ml/min [facility] Estimated GFR (MDRD) Amer 137 mL/min >60 [facility] Comment on above: GFR Calc Estimated GFR (MDRD) Non-Af Amer 113 mL/min >60 [facility] Comment on above: Non- GFR Calc Platelets bldOrdered By: Dr. Peña on 08-24-2022 Platelets (Bld) [#/Vol] 115 10*3/uL 150-450 [facility] Serum or plasma calcium tay urement (mass/volume)Ordered By: Dr. Peña on 08-24-2022 Calcium [Mass/Vol] 9.2 mg/dL 8.5-10.1 [facility] Serum or plasma creatinine m easurement (mass/volume)Ordered By: Dr. Peña on 08-24-2022 Creatinine [Mass/Vol] 0.70 mg/dL 0.70-1.30 [facility] Comment on above: The validity of the calculated GFR & GFRAA in patients over 70 years has not been determined. Clinical correlation is essential. Serum or plasma urea nitroge n measurement (mass/volume)Ordered By: Dr. Peña on 08-24-2022 Urea nitrogen [Mass/Vol] 15 mg/dL 7-18 [facility] Thin prep Papanicolaou smear with manual screeningOrdered By: Dr. Peña on 08-24-2022 Thin prep Papanicolaou smear with manual screening 2 5-15 [facility] Absolute lymphocyte countOrd ered By: Dr. Mario on 08-04-2022 Lymphocytes Auto (Unsp spec) [#/Vol] 2.10 10*3/uL 0.83-4.51 [facility] Basophil percentageOrdered B y: Dr. Mario on 08-04-2022 Basophils/100 WBC (Bld) 0.6 % 0-1 [facility] Bilirubin [Mass/Vol] 0.40 mg/dL 0.20-1.00 [facility] Comment on above: For patients on eltr ombopag therapy, use of [place] TBIL is not recommended. Chloride [Moles/Vol] 104 mmol/L 98-107 [facility] Cholesterol [Mass/Vol] 116 mg/dL <200 [facility] Comment on above: <200 mg/dL Desirable 200-240 mg/dL Borderline >240 mg/dL High Risk Eosinophils/100 WBC (Bld) 3.6 % 0-5 [facility] Glucose [Mass/Vol] 89 mg/dL 74-106 [facility] Neutrophils (Bld) [#/Vol] 3.8 10*3/uL 2.0-7.7 [facility] Neutrophils/100 WBC (Bld) 54.5 % 47-70 [facility] Potassium [Moles/Vol] 4.5 mmol/L 3.5-5.1 [facility] Comment on above: Moderate Hemolysis, Result may be falsely increased. Protein [Mass/Vol] 7.4 g/dL 6.4-8.2 [facility] Sodium [Moles/Vol] 139 mmol/L 136-145 [facility] Triglyceride [Mass/Vol] 106 mg/dL <199 [facility] Comment on above: The drugs N-Acetylcy steine and Metamizole may falsely depress this assay.Serum Triglycerides Reference Interval Normal <150 mg/dL Borderline high 150 - 199 mg/dL High 200 - 499 mg/dL Very High > or = 500 mg/dL WBC (Bld) [#/Vol] 6.9 10*3/uL 4.4-11.0 [facility] Blood erythrocytes count (nu mber/volume)Ordered By: Dr. Mario on 08-04-2022 RBC (Bld) [#/Vol] 4.09 10*6/uL 4.6-6.2 [facility] Blood hemoglobin measurement (mass/volume)Ordered By: Dr. Mario on 08-04-2022 Hemoglobin (Bld) [Mass/Vol] 12.8 g/dL 13.0-16.5 [facility] Blood lymphocytes/100 leukoc ytesOrdered By: Dr. Mario on 08-04-2022 Lymphocytes/100 WBC (Bld) 30.3 % 19-41 [facility] Blood monocytes/100 leukocyt esOrdered By: Dr. Mario on 08-04-2022 Monocytes/100 WBC (Bld) 10.7 % 0-10 [facility] Blood platelet mean volumeOr dered By: Dr. Mario on 08-04-2022 Platelet mean volume (Bld) [Entitic vol] 11.4 fL 6.2-12.0 [facility] Determination of erythrocyte mean corpuscular volume (MCV)Ordered By: Dr. Mario on 08-04-2022 MCV (RBC) [Entitic vol] 100.0 fL 80-94 [facility] Hematocrit Auto (Bld) [Volum e fraction]Ordered By: Dr. Mario on 08-04-2022 Hematocrit (Bld) [Volume fraction] 40.9 % 40-54 [facility] - Chemistry and C hemistry - challengeOrdered By: Dr. Mario on 08-04-2022 ALP [Catalytic activity/Vol] 73 U/L 45-117 [facility] ALT [Catalytic activity/Vol] 25 U/L 16-61 [facility] CO2 [Moles/Vol] 32.0 mmol/L 21.0-32.0 [facility] Globulin (S) [Mass/Vol] 4.3 g/dL 2.2-4.2 [facility] Urea nitrogen/Creatinine [Mass ratio] 18.2 mg/mg 10-20 [facility] - Hematology and Cell countsOrdered By: Dr. Mario on 08-04-2022 Erythrocyte distribution width (RBC) [Entitic vol] 52.4 fL 35.1-43.9 [facility] Erythrocyte distribution width (RBC) [Ratio] 14.2 % 11.6-14.6 [facility] Immature granulocytes/100 WBC (Bld) 0.300 % 0.0-0.9 [facility] Comment on above: IG% - Immature Granu locytes (promyelocytes, myelocytes and metamyelocytes) > 1% indicates that a LEFT SHIFT is Present. MCH (RBC) [Entitic mass] 31.3 pg 27.0-32.0 [facility] Nucleated RBC/100 WBC (Bld) [Ratio] 0 % 0-5 [facility] MCHC Auto (RBC) [Mass/Vol]Or dered By: Dr. Mario on 08-04-2022 MCHC (RBC) [Mass/Vol] 31.3 g/dL 32-36 [facility] No Panel InformationOrdered By: Dr. Mario on 08-04-2022 Estimated GFR (MDRD) Amer 123 mL/min >60 [facility] Comment on above: GFR Calc Estimated GFR (MDRD) Non-Af Amer 102 mL/min >60 [facility] Comment on above: Non- GFR Calc Platelets bldOrdered By: Dr. Mario on 08-04-2022 Platelets (Bld) [#/Vol] 135 10*3/uL 150-450 [facility] Serum or plasma albumin tay urement (mass/volume)Ordered By: Dr. Mario on 08-04-2022 Albumin [Mass/Vol] 3.1 g/dL 3.2-5.0 [facility] Serum or plasma albumin/glob ulin mass ratioOrdered By: Dr. Mario on 08-04-2022 Albumin/Globulin [Mass ratio] 0.7 {ratio} 0.9-2.4 [facility] Serum or plasma calcium tay urement (mass/volume)Ordered By: Dr. Mario on 08-04-2022 Calcium [Mass/Vol] 8.9 mg/dL 8.5-10.1 [facility] Serum or plasma cholesterol in HDL measurement (mass/volume)Ordered By: Dr. Mario on 08-04-2022 Cholesterol in HDL [Mass/Vol] 50 mg/dL >40 [facility] Comment on above: The drugs N-Acetylcy steine and Metamizole may falsely depress this assay. Reference Range HDL <40 mg/dL Low HDL Cholesterol HDL >or= 60 mg/dL High HDL Cholesterol Serum or plasma cholesterol in VLDL measurement (mass/volume)Ordered By: Dr. Mario on 08-04-2022 Cholesterol in VLDL [Mass/Vol] 21 mg/dL 5-40 [facility] Serum or plasma creatinine m easurement (mass/volume)Ordered By: Dr. Mario on 08-04-2022 Creatinine [Mass/Vol] 0.77 mg/dL 0.70-1.30 [facility] Comment on above: The validity of the calculated GFR & GFRAA in patients over 70 years has not been determined. Clinical correlation is essential. Serum or plasma low density lipoprotein (LDL) cholesterol measurement (mass/volume)Ordered By: Dr. Mario on 08-04-2022 Cholesterol in LDL [Mass/Vol] 45 mg/dL 0-130 [facility] Serum or plasma urea nitroge n measurement (mass/volume)Ordered By: Dr. Mario on 08-04-2022 Urea nitrogen [Mass/Vol] 14 mg/dL 7-18 [facility] Thin prep Papanicolaou smear with manual screeningOrdered By: Dr. Mario on 08-04-2022 Thin prep Papanicolaou smear with manual screening 33 U/L 15-37 [facility] Comment on above: Moderate Hemolysis, Result may be falsely increased. Thin prep Papanicolaou smear with manual screening 3 5-15 [facility] Absolute lymphocyte counton 12-03-2021 Lymphocytes Auto (Unsp spec) [#/Vol] 2.18 10*3/uL 0.83-4.51 [facility] Work Phone: Basophil percentageon 2021 Basophils/100 WBC (Bld) 0.4 % 0-1 [facility] Work Phone: Chloride [Moles/Vol] 104 mmol/L 98-107 [facility] Work Phone: Eosinophils/100 WBC (Bld) 0.9 % 0-5 [facility] Work Phone: Glucose [Mass/Vol] 100 mg/dL 74-106 [facility] Work Phone: Comment on above: Fasting Glucose resu lt from 100 to 125 mg/dL suggests IMPAIRED HOMEOSTASIS per A.D.A. criteria. Neutrophils (Bld) [#/Vol] 5.7 10*3/uL 2.0-7.7 [facility] Work Phone: Neutrophils/100 WBC (Bld) 63.0 % 47-70 [facility] Work Phone: Potassium [Moles/Vol] 4.6 mmol/L 3.5-5.1 [facility] Work [facility]: Sodium [Moles/Vol] 139 mmol/L 136-145 [facility] Work Phone: WBC (Bld) [#/Vol] 9.0 10*3/uL 4.4-11.0 [facility] Work Phone: Blood erythrocytes count (nu mber/volume)on 12-03-2021 RBC (Bld) [#/Vol] 4.62 10*6/uL 4.6-6.2 [facility] Work Phone: Blood hemoglobin measurement (mass/volume)on 12-03-2021 Hemoglobin (Bld) [Mass/Vol] 14.7 g/dL 13.0-16.5 [facility] Work Phone: [phone] Blood lymphocytes/100 leukoc yteson 12-03-2021 Lymphocytes/100 WBC (Bld) 24.2 % 19-41 [facility] Work Phone: [phone] Blood monocytes/100 leukocyt eson 12-03-2021 Monocytes/100 WBC (Bld) 11.1 % 0-10 [facility] Work Phone: Blood platelet mean volumeon 12-03-2021 Platelet mean volume (Bld) [Entitic vol] 11.0 fL 6.2-12.0 [facility] Work Phone: Determination of erythrocyte mean corpuscular volume (MCV)on 12-03-2021 MCV (RBC) [Entitic vol] 96.3 fL 80-94 [facility] Work Phone: Hematocrit Auto (Bld) [Volum e fraction]on 12-03-2021 Hematocrit (Bld) [Volume fraction] 44.5 % 40-54 [facility] Work Phone: Laboratory - Chemistry and C hemistry - challengeon 12-03-2021 CO2 [Moles/Vol] 33.0 mmol/L 21.0-32.0 [facility] Work Phone: Magnesium [Mass/Vol] 2.4 mg/dL 1.6-2.6 [facility] Work Phone: Urea nitrogen/Creatinine [Mass ratio] 21.2 mg/mg 10-20 [facility] Work Phone: Laboratory - Hematology and Cell countson 12-03-2021 Erythrocyte distribution width (RBC) [Entitic vol] 49.6 fL 35.1-43.9 [facility] Work Phone: Erythrocyte distribution width (RBC) [Ratio] 14.1 % 11.6-14.6 [facility] Work Phone: Immature granulocytes/100 WBC (Bld) 0.400 % 0.0-0.9 [facility] Work Phone: Comment on above: IG% - Immature Granu locytes (promyelocytes, myelocytes and metamyelocytes) > 1% indicates that a LEFT SHIFT is Present. MCH (RBC) [Entitic mass] 31.8 pg 27.0-32.0 [facility] Work Phone: Nucleated RBC/100 WBC (Bld) [Ratio] 0 % 0-5 [facility] Work Phone: MCHC Auto (RBC) [Mass/Vol]on 12-03-2021 MCHC (RBC) [Mass/Vol] 33.0 g/dL 32-36 [facility] Work Phone: No Panel Informationon 12-03 Estimated GFR (MDRD) Amer 92 mL/min >60 [facility] Work Phone: Comment on above: GFR Calc Estimated GFR (MDRD) Non-Af Amer 76 mL/min >60 [facility] Work Phone: Comment on above: Non- GFR Calc Thyroid Stimulating Hormone (TSH) 2.10 uIU/mL 0.358-3.74 [facility] Work Phone: Platelets bldon 12-03-2021 Platelets (Bld) [#/Vol] 168 10*3/uL 150-450 [facility] Work Phone: Serum or plasma calcium tay urement (mass/volume)on 12-03-2021 Calcium [Mass/Vol] 9.4 mg/dL 8.5-10.1 [facility] Work Phone: Serum or plasma creatinine m easurement (mass/volume)on 12-03-2021 Creatinine [Mass/Vol] 0.99 mg/dL 0.70-1.30 [facility] Work Phone: Comment on above: The validity of the calculated GFR & GFRAA in patients over 70 years has not been determined. Clinical correlation is essential. Serum or plasma urea nitroge n measurement (mass/volume)on 12-03-2021 Urea nitrogen [Mass/Vol] 21 mg/dL 7-18 [facility] Work Phone: Thin prep Papanicolaou smear with manual screeningon 12-03-2021 Thin prep Papanicolaou smear with manual screening 2 5-15 [facility] Work Phone: No Panel Information [facility] Stool gastrointestinal hemog lobin detection by immunologic method Lower GI hemoglobin IA Ql (Stl) [facility] Work Phone: Vital Signs Date Time Vital Sign Value Performing Clinician Jake contreras 02-19-2025 06:29-0400 Body height 182.[address] Addi Mario MD Work Phone: [facility] 02-19-2025 06:29-0400 Body mass index (BMI) [Ratio] 30.1 kg/m2 Dr. Addi Mario MD Work Phone: [facility] 02-19-2025 06:29-0400 Body weight 100.[address] Addi Mario MD Work Phone: [facility] 02-19-2025 06:29-0400 Diastolic blood pressure 80 mm[Hg] Dr. Addi Mario MD Work Phone: [facility] 02-19-2025 06:29-0400 Heart rate 78 /min Dr. Addi Mario MD Work Phone: [facility] 02-19-2025 06:29-0400 Respiratory rate 18 /min Dr. Addi Mario MD Work Phone: [facility] 02-19-2025 06:29-0400 SaO2% (BldA) [Mass fraction] 98 % Dr. Addi Mario MD Work Phone: [facility] 02-19-2025 06:29-0400 Systolic blood pressure 156 mm[Hg] Dr. Addi Mario MD Work Phone: [facility] 02-14-2025 14:27-0400 Body height 182.[address] Addi Mario MD Work Phone: [facility] 02-14-2025 14:27-0400 Body mass index (BMI) [Ratio] 30.1 kg/m2 Dr. Addi Mario MD Work Phone: [facility] 02-14-2025 14:27-0400 Body temperature 98 [degF] Dr. Addi Mario MD Work Phone: [facility] 02-14-2025 14:27-0400 Body weight 100.[address] Addi Mario MD Work Phone: [facility] 02-14-2025 14:27-0400 Diastolic blood pressure 78 mm[Hg] Dr. Addi Mario MD Work Phone: [facility] 02-14-2025 14:27-0400 Heart rate 60 /min Dr. Addi Mario MD Work Phone: [facility] 02-14-2025 14:27-0400 Respiratory rate 16 /min Dr. Addi Mario MD Work Phone: [facility] 02-14-2025 14:27-0400 SaO2% (BldA) [Mass fraction] 96 % Dr. Addi Mario MD Work Phone: [facility] 02-14-2025 14:27-0400 Systolic blood pressure 124 mm[Hg] Dr. Addi Mario MD Work Phone: [facility] 12-14-2024 08:21-0400 Body mass index (BMI) [Ratio] 29.7 kg/m2 Dr. Addi Mario MD Work Phone: [facility] 12-14-2024 08:21-0400 Body temperature 96.7 [degF] Dr. Addi Mario MD Work Phone: [facility] 12-14-2024 08:21-0400 Body weight 99.[address] Addi Mario MD Work Phone: [facility] 12-14-2024 08:21-0400 Diastolic blood pressure 74 mm[Hg] Dr. Addi Mario MD Work Phone: [facility] 12-14-2024 08:21-0400 Heart rate 59 /min Dr. Addi Mario MD Work Phone: [facility] 12-14-2024 08:21-0400 Respiratory rate 20 /min Dr. Addi Mario MD Work Phone: [facility] 12-14-2024 08:21-0400 SaO2% (BldA) [Mass fraction] 98 % Dr. Addi Mario MD Work Phone: [facility] 12-14-2024 08:21-0400 Systolic blood pressure 147 mm[Hg] Dr. Addi Mario MD Work Phone: [facility] 11-15-2024 15:09-0500 Body height 182.[address] Addi Mario MD Work Phone: [facility] 11-15-2024 15:09-0500 Body mass index (BMI) [Ratio] 29.7 kg/m2 Dr. Addi Mario MD Work Phone: [facility] 11-15-2024 15:09-0500 Body temperature 96.8 [degF] Dr. Addi Mario MD Work Phone: [facility] 11-15-2024 15:09-0500 Body weight 99.[address] Addi Mario MD Work Phone: [facility] 11-15-2024 15:09-0500 Diastolic blood pressure 60 mm[Hg] Dr. Addi Mario MD Work Phone: [facility] 11-15-2024 15:09-0500 Heart rate 60 /min Dr. Addi Mario MD Work Phone: [facility] 11-15-2024 15:09-0500 Respiratory rate 18 /min Dr. Addi Mario MD Work Phone: [facility] 11-15-2024 15:09-0500 SaO2% (BldA) [Mass fraction] 99 % Dr. Addi Mario MD Work Phone: [facility] 11-15-2024 15:09-0500 Systolic blood pressure 130 mm[Hg] Dr. Addi Mario MD Work Phone: [facility] 10-23-2024 13:58-0500 Body mass index (BMI) [Ratio] 29.5 kg/m2 Dr. Addi Mario MD Work Phone: [facility] 10-23-2024 13:58-0500 Body weight 98.[address] Addi Mario MD Work Phone: [facility] 10-23-2024 13:58-0500 Diastolic blood pressure 77 mm[Hg] Dr. Addi Mario MD Work Phone: [facility] 10-23-2024 13:58-0500 Heart rate 67 /min Dr. Addi Mario MD Work Phone: [facility] 10-23-2024 13:58-0500 Respiratory rate 18 /min Dr. Addi Mario MD Work Phone: [facility] 10-23-2024 13:58-0500 SaO2% (BldA) [Mass fraction] 99 % Dr. Addi Mario MD Work Phone: [facility] 10-23-2024 13:58-0500 Systolic blood pressure 140 mm[Hg] Dr. Addi Mario MD Work Phone: [facility] 08-15-2024 14:31-0500 Body mass index (BMI) [Ratio] 29.7 kg/m2 Dr. Addi Mario MD Work Phone: [facility] 08-15-2024 14:31-0500 Body temperature 97.3 [degF] Dr. Addi Mario MD Work Phone: [facility] 08-15-2024 14:31-0500 Body weight 99.[address] Addi Mario MD Work Phone: [facility] 08-15-2024 14:31-0500 Diastolic blood pressure 78 mm[Hg] Dr. Addi Mario MD Work Phone: [facility] 08-15-2024 14:31-0500 Heart rate 66 /min Dr. Addi Mario MD Work Phone: [facility] 08-15-2024 14:31-0500 Respiratory rate 14 /min Dr. Addi Mario MD Work Phone: [facility] 08-15-2024 14:31-0500 SaO2% (BldA) [Mass fraction] 98 % Dr. Addi Mario MD Work Phone: [facility] 08-15-2024 14:31-0500 Systolic blood pressure 120 mm[Hg] Dr. Addi Mario MD Work Phone: [facility] 08-09-2024 13:23-0500 Body mass index (BMI) [Ratio] 29.4 kg/m2 Dr. Addi Mario MD Work Phone: [facility] 08-09-2024 13:23-0500 Body temperature 97.6 [degF] Dr. Addi Mario MD Work Phone: [facility] 08-09-2024 13:23-0500 Body weight 98.[address] Addi Mario MD Work Phone: [facility] 08-09-2024 13:23-0500 Diastolic blood pressure 64 mm[Hg] Dr. Addi Mario MD Work Phone: [facility] 08-09-2024 13:23-0500 Heart rate 52 /min Dr. Addi Mario MD Work Phone: [facility] 08-09-2024 13:23-0500 Respiratory rate 18 /min Dr. Addi Mario MD Work Phone: [facility] 08-09-2024 13:23-0500 SaO2% (BldA) [Mass fraction] 92 % Dr. Addi Mario MD Work Phone: [facility] 08-09-2024 13:23-0500 Systolic blood pressure 134 mm[Hg] Dr. Addi Mario MD Work Phone: [facility] 01-01-2024 09:53-0400 Body temperature 97.6 [degF] Dr. Addi Mario Work Phone: [facility] 01-01-2024 09:53-0400 Diastolic blood pressure 52 mm[Hg] Dr. Addi Mario Work Phone: [facility] 01-01-2024 09:53-0400 Heart rate 60 /min Dr. Addi Mario Work Phone: [facility] 01-01-2024 09:53-0400 Respiratory rate 17 /min Dr. Addi Mario Work Phone: [facility] 01-01-2024 09:53-0400 SaO2% (BldA) [Mass fraction] 98 % Dr. Addi Mario Work Phone: [facility] 01-01-2024 09:53-0400 Systolic blood pressure 103 mm[Hg] Dr. Addi Mario Work Phone: [facility] 12-28-2023 15:54-0400 Body height 182.[address] Addi Mario Work Phone: [facility] 12-28-2023 15:54-0400 Body weight 99.[address] Addi Mario Work Phone: [facility] 12-27-2023 13:00-0400 Body mass index (BMI) [Ratio] 29.7 kg/m2 Dr. Addi Mario Work Phone: [facility] 12-27-2023 10:02-0400 Diastolic blood pressure 68 mm[Hg] Dr. Addi Mario Work Phone: [facility] 12-27-2023 10:02-0400 Heart rate 66 /min Dr. Addi Mario Work Phone: [facility] 12-27-2023 10:02-0400 Systolic blood pressure 127 mm[Hg] Dr. Addi Mario Work Phone: [facility] 12-27-2023 08:54-0400 Body height 182.[address] Addi Mario Work Phone: [facility] 12-27-2023 08:54-0400 Body mass index (BMI) [Ratio] 29.8 kg/m2 Dr. Addi Mario Work Phone: [facility] 12-27-2023 08:54-0400 Body weight 99.[address] Addi Mario Work Phone: [facility] 12-27-2023 08:54-0400 Diastolic blood pressure 75 mm[Hg] Dr. Addi Mario Work Phone: [facility] 12-27-2023 08:54-0400 Heart rate 65 /min Dr. Addi Mario Work Phone: [facility] 12-27-2023 08:54-0400 Respiratory rate 18 /min Dr. Addi Mario Work Phone: [facility] 12-27-2023 08:54-0400 Systolic blood pressure 129 mm[Hg] Dr. Addi Mario Work Phone: [facility] 12-26-2023 14:11-0400 Body temperature 97.1 [degF] Dr. Addi Mario Work Phone: [facility] 12-26-2023 14:11-0400 Respiratory rate 14 /min Dr. Addi Mario Work Phone: [facility] 12-26-2023 14:11-0400 SaO2% (BldA) [Mass fraction] 98 % Dr. Addi Mario Work Phone: [facility] 12-21-2023 16:10-0400 Body temperature 97 [degF] Dr. Addi Mario Work Phone: [facility] 12-21-2023 16:10-0400 Diastolic blood pressure 60 mm[Hg] Dr. Addi Mario Work Phone: [facility] 12-21-2023 16:10-0400 Heart rate 62 /min Dr. Addi Mario Work Phone: [facility] 12-21-2023 16:10-0400 Respiratory rate 16 /min Dr. Addi Mario Work Phone: [facility] 12-21-2023 16:10-0400 SaO2% (BldA) [Mass fraction] 97 % Dr. Addi Mario Work Phone: [facility] 12-21-2023 16:10-0400 Systolic blood pressure 148 mm[Hg] Dr. Addi Mario Work Phone: [facility] 12-21-2023 15:39-0400 Body weight 101.[address] Addi Mario Work Phone: [facility] 12-21-2023 14:26-0400 Body mass index (BMI) [Ratio] 31.7 kg/m2 Dr. Addi Mario Work Phone: [facility] 12-21-2023 14:26-0400 Body weight 106.[address] Addi Mario Work Phone: [facility] 12-20-2023 12:45-0400 Body mass index (BMI) [Ratio] 30.3 kg/m2 Dr. Addi Mario Work Phone: [facility] 12-08-2023 09:30-0400 Body temperature 97.7 [degF] Dr. Addi Mario Work Phone: [facility] 12-08-2023 09:30-0400 Diastolic blood pressure 80 mm[Hg] Dr. Addi Mario Work Phone: [facility] 12-08-2023 09:30-0400 Heart rate 68 /min Dr. Addi Mario Work Phone: [facility] 12-08-2023 09:30-0400 Respiratory rate 16 /min Dr. Addi Mario Work Phone: [facility] 12-08-2023 09:30-0400 SaO2% (BldA) [Mass fraction] 96 % Dr. Addi Mario Work Phone: [facility] 12-08-2023 09:30-0400 Systolic blood pressure 119 mm[Hg] Dr. Addi Mario Work Phone: [facility] 12-08-2023 02:28-0400 Body mass index (BMI) [Ratio] 31 kg/m2 Dr. Addi Mario Work Phone: [facility] 12-08-2023 02:28-0400 Body weight 103.[address] Addi Mario Work Phone: [facility] 12-07-2023 08:20-0400 Body height 182.[address] Addi Mario Work Phone: [facility] 12-05-2023 20:07-0400 Inhaled oxygen flow rate 3 L/min Dr. dAdi Mario Work Phone: [facility] 12-02-2023 16:45-0400 Body temperature 99.1 [degF] Dr. Addi Mario Work Phone: [facility] 12-02-2023 16:45-0400 Diastolic blood pressure 65 mm[Hg] Dr. Addi Mario Work Phone: [facility] 12-02-2023 16:45-0400 Heart rate 90 /min Dr. Addi Mario Work Phone: [facility] 12-02-2023 16:45-0400 Respiratory rate 26 /min Dr. Addi Mario Work Phone: [facility] 12-02-2023 16:45-0400 SaO2% (BldA) [Mass fraction] 94 % Dr. Addi Mario Work Phone: [facility] 12-02-2023 16:45-0400 Systolic blood pressure 129 mm[Hg] Dr. Addi Mario Work Phone: [facility] 12-02-2023 12:31-0400 Body height 182.[address] Addi Mario Work Phone: [facility] 12-02-2023 12:31-0400 Body mass index (BMI) [Ratio] 31.7 kg/m2 Dr. Addi Mario Work Phone: [facility] 12-02-2023 12:31-0400 Body weight 106.[address] Addi Mario Work Phone: [facility] 10-20-2023 09:47-0500 Body mass index (BMI) [Ratio] 31.3 kg/m2 Dr. Addi Mario Work Phone: [facility] 10-20-2023 09:47-0500 Body weight 104.[address] Addi Mario Work Phone: [facility] 10-20-2023 09:47-0500 Diastolic blood pressure 72 mm[Hg] Dr. Addi Mario Work Phone: [facility] 10-20-2023 09:47-0500 Heart rate 66 /min Dr. Addi Mario Work Phone: [facility] 10-20-2023 09:47-0500 Respiratory rate 18 /min Dr. Addi Mario Work Phone: [facility] 10-20-2023 09:47-0500 Systolic blood pressure 131 mm[Hg] Dr. Addi Mario Work Phone: [facility] 08-15-2023 14:47-0500 Body mass index (BMI) [Ratio] 31.4 kg/m2 Dr. Addi Mario Work Phone: [facility] 08-15-2023 14:47-0500 Body temperature 97.5 [degF] Dr. Addi Mario Work Phone: [facility] 08-15-2023 14:47-0500 Body weight [address] Addi Mario Work Phone: [facility] 08-15-2023 14:47-0500 Diastolic blood pressure 76 mm[Hg] Dr. Addi Mario Work Phone: [facility] 08-15-2023 14:47-0500 Heart rate 61 /min Dr. Addi Mario Work Phone: [facility] 08-15-2023 14:47-0500 Respiratory rate 18 /min Dr. Addi Mario Work Phone: [facility] 08-15-2023 14:47-0500 SaO2% (BldA) [Mass fraction] 99 % Dr. Addi Mario Work Phone: [facility] 08-15-2023 14:47-0500 Systolic blood pressure 128 mm[Hg] Dr. Addi Mario Work Phone: [facility] 04-28-2023 14:10-0400 Body height 182.[address] Addi Mario Work Phone: [facility] 04-28-2023 14:10-0400 Body mass index (BMI) [Ratio] 31.6 kg/m2 Dr. Addi Mario Work Phone: [facility] 04-28-2023 14:10-0400 Body temperature 97.4 [degF] Dr. Addi Mario Work Phone: [facility] 04-28-2023 14:10-0400 Body weight 105.[address] Addi Mario Work Phone: [facility] 04-28-2023 14:10-0400 Diastolic blood pressure 78 mm[Hg] Dr. Addi Mario Work Phone: [facility] 04-28-2023 14:10-0400 Heart rate 68 /min Dr. Addi Mario Work Phone: [facility] 04-28-2023 14:10-0400 Respiratory rate 18 /min Dr. Addi Mario Work Phone: [facility] 04-28-2023 14:10-0400 SaO2% (BldA) [Mass fraction] 94 % Dr. Addi Mario Work Phone: [facility] 04-28-2023 14:10-0400 Systolic blood pressure 132 mm[Hg] Dr. Addi Mario Work Phone: [facility] 04-22-2023 22:20-0400 Diastolic blood pressure 76 mm[Hg] Dr. Addi Mario Work Phone: [facility] 04-22-2023 22:20-0400 Heart rate 83 /min Dr. Addi Mario Work Phone: [facility] 04-22-2023 22:20-0400 Respiratory rate 14 /min Dr. Addi Mario Work Phone: [facility] 04-22-2023 22:20-0400 SaO2% (BldA) [Mass fraction] 97 % Dr. Addi Mario Work Phone: [facility] 04-22-2023 22:20-0400 Systolic blood pressure 145 mm[Hg] Dr. Addi Mario Work Phone: [facility] 04-22-2023 20:18-0400 Body height 182.[address] Addi Mario Work Phone: [facility] 04-22-2023 20:18-0400 Body mass index (BMI) [Ratio] 31.5 kg/m2 Dr. Addi Mario Work Phone: [facility] 04-22-2023 20:18-0400 Body temperature 98.6 [degF] Dr. Addi Mario Work Phone: [facility] 04-22-2023 20:18-0400 Body weight 105.[address] Addi Mario Work Phone: [facility] 04-12-2023 14:02-0400 Body mass index (BMI) [Ratio] 31.7 kg/m2 Dr. Addi Mario Work Phone: [facility] 04-12-2023 14:02-0400 Body weight 106.[address] Addi Mario Work Phone: [facility] 04-12-2023 14:02-0400 Diastolic blood pressure 75 mm[Hg] Dr. Addi Mario Work Phone: [facility] 04-12-2023 14:02-0400 Heart rate 64 /min Dr. Addi Mario Work Phone: [facility] 04-12-2023 14:02-0400 Respiratory rate 20 /min Dr. Addi Mario Work Phone: [facility] 04-12-2023 14:02-0400 SaO2% (BldA) [Mass fraction] 99 % Dr. Addi Mario Work Phone: [facility] 04-12-2023 14:02-0400 Systolic blood pressure 140 mm[Hg] Dr. Addi Mario Work Phone: [facility] 03-25-2023 13:24-0400 Respiratory rate 18 /min Dr. Addi Mario Work Phone: [facility] 03-25-2023 11:28-0400 Body mass index (BMI) [Ratio] 31.4 kg/m2 Dr. Addi Mario Work Phone: [facility] 03-25-2023 11:28-0400 Body temperature 98.2 [degF] Dr. Addi Mario Work Phone: [facility] 03-25-2023 11:28-0400 Body weight 105.[address] Addi Mario Work Phone: [facility] 03-25-2023 11:28-0400 Diastolic blood pressure 67 mm[Hg] Dr. Addi Mario Work Phone: [facility] 03-25-2023 11:28-0400 Heart rate 62 /min Dr. Addi Mario Work Phone: [facility] 03-25-2023 11:28-0400 SaO2% (BldA) [Mass fraction] 98 % Dr. Addi Mario Work Phone: [facility] 03-25-2023 11:28-0400 Systolic blood pressure 172 mm[Hg] Dr. Addi Mario Work Phone: [facility] 03-24-2023 16:41-0400 Body mass index (BMI) [Ratio] 31.7 kg/m2 Dr. Addi Mario Work Phone: [facility] 03-24-2023 16:41-0400 Body temperature 97.9 [degF] Dr. Addi Mario Work Phone: [facility] 03-24-2023 16:41-0400 Body weight 106.[address] Addi Mario Work Phone: [facility] 03-24-2023 16:41-0400 Diastolic blood pressure 84 mm[Hg] Dr. Addi Mario Work Phone: [facility] 03-24-2023 16:41-0400 Heart rate 62 /min Dr. Addi Mario Work Phone: [facility] 03-24-2023 16:41-0400 Respiratory rate 16 /min Dr. Addi Mario Work Phone: [facility] 03-24-2023 16:41-0400 SaO2% (BldA) [Mass fraction] 98 % Dr. Addi Mario Work Phone: [facility] 03-24-2023 16:41-0400 Systolic blood pressure 120 mm[Hg] Dr. Addi Mario Work Phone: [facility] 03-21-2023 23:06-0400 Respiratory rate 16 /min Dr. Addi Mario Work Phone: [facility] 03-21-2023 19:55-0400 Body height 182.[address] Addi Mario Work Phone: [facility] 03-21-2023 19:55-0400 Body mass index (BMI) [Ratio] 31.6 kg/m2 Dr. Addi Mario Work Phone: [facility] 03-21-2023 19:55-0400 Body temperature 98 [degF] Dr. dAdi Mario Work Phone: [facility] 03-21-2023 19:55-0400 Body weight 105.[address] Addi Mario Work Phone: [facility] 03-21-2023 19:55-0400 Diastolic blood pressure 65 mm[Hg] Dr. Addi Mario Work Phone: [facility] 03-21-2023 19:55-0400 Heart rate 54 /min Dr. Addi Mario Work Phone: [facility] 03-21-2023 19:55-0400 SaO2% (BldA) [Mass fraction] 97 % Dr. Addi Mario Work Phone: [facility] 03-21-2023 19:55-0400 Systolic blood pressure 167 mm[Hg] Dr. Addi Mario Work Phone: [facility] 03-12-2023 14:56-0400 Diastolic blood pressure 82 mm[Hg] Dr. Addi Mario Work Phone: [facility] 03-12-2023 14:56-0400 Heart rate 50 /min Dr. Addi Mario Work Phone: [facility] 03-12-2023 14:56-0400 Respiratory rate 14 /min Dr. Addi Mario Work Phone: [facility] 03-12-2023 14:56-0400 SaO2% (BldA) [Mass fraction] 99 % Dr. Addi Mario Work Phone: [facility] 03-12-2023 14:56-0400 Systolic blood pressure 131 mm[Hg] Dr. Addi Mario Work Phone: [facility] 03-12-2023 12:20-0400 Body height 182.[address] Addi Mario Work Phone: [facility] 03-12-2023 12:20-0400 Body mass index (BMI) [Ratio] 31.9 kg/m2 Dr. Addi Mario Work Phone: [facility] 03-12-2023 12:20-0400 Body temperature 96.8 [degF] Dr. Addi Mario Work Phone: [facility] 03-12-2023 12:20-0400 Body weight 106.[address] Addi Mario Work Phone: [facility] 01-22-2023 10:04-0400 Body height 182.[address] Addi Mario Work Phone: [facility] 01-22-2023 10:04-0400 Body mass index (BMI) [Ratio] 31.6 kg/m2 Dr. Addi Mario Work Phone: [facility] 01-22-2023 10:04-0400 Body temperature 97.6 [degF] Dr. Addi Mario Work Phone: [facility] 01-22-2023 10:04-0400 Body weight 105.[address] Addi Mario Work Phone: [facility] 01-22-2023 10:04-0400 Diastolic blood pressure 66 mm[Hg] Dr. Addi Mario Work Phone: [facility] 01-22-2023 10:04-0400 Heart rate 57 /min Dr. Addi Mario Work Phone: [facility] 01-22-2023 10:04-0400 Respiratory rate 18 /min Dr. Addi Mario Work Phone: [facility] 01-22-2023 10:04-0400 SaO2% (BldA) [Mass fraction] 97 % Dr. Addi Mario Work Phone: [facility] 01-22-2023 10:04-0400 Systolic blood pressure 141 mm[Hg] Dr. Addi Mario Work Phone: [facility] 12-29-2022 14:18-0400 Body mass index (BMI) [Ratio] 31.7 kg/m2 Dr. Addi Mario Work Phone: [facility] 12-29-2022 14:18-0400 Body temperature 97.9 [degF] Dr. Addi Mario Work Phone: [facility] 12-29-2022 14:18-0400 Body weight 106.[address] Addi Mario Work Phone: [facility] 12-29-2022 14:18-0400 Diastolic blood pressure 70 mm[Hg] Dr. Addi Mario Work Phone: [facility] 12-29-2022 14:18-0400 Heart rate 57 /min Dr. Addi Mario Work Phone: [facility] 12-29-2022 14:18-0400 Respiratory rate 12 /min Dr. Addi Mario Work Phone: [facility] 12-29-2022 14:18-0400 SaO2% (BldA) [Mass fraction] 97 % Dr. Addi Mario Work Phone: [facility] 12-29-2022 14:18-0400 Systolic blood pressure 138 mm[Hg] Dr. Addi Mario Work Phone: [facility] 11-03-2022 08:14-0500 Body mass index (BMI) [Ratio] 31.1 kg/m2 Dr. Addi Mario Work Phone: [facility] 11-03-2022 08:14-0500 Body temperature 97.2 [degF] Dr. Addi Mario Work Phone: [facility] 11-03-2022 08:14-0500 Body weight 104.[address] Adid Mario Work Phone: [facility] 11-03-2022 08:14-0500 Diastolic blood pressure 80 mm[Hg] Dr. Addi Mario Work Phone: [facility] 11-03-2022 08:14-0500 Heart rate 64 /min Dr. Addi Mario Work Phone: [facility] 11-03-2022 08:14-0500 Respiratory rate 18 /min Dr. Addi Mario Work Phone: [facility] 11-03-2022 08:14-0500 SaO2% (BldA) [Mass fraction] 97 % Dr. Addi Mario Work Phone: [facility] 11-03-2022 08:14-0500 Systolic blood pressure 157 mm[Hg] Dr. Addi Mario Work Phone: [facility] 10-05-2022 13:09-0500 Body height 182.[address] Addi Mario Work Phone: [facility] 10-05-2022 13:09-0500 Body mass index (BMI) [Ratio] 31.8 kg/m2 Dr. Addi Mario Work Phone: [facility] 10-05-2022 13:09-0500 Body weight 106.[address] Addi Mario Work Phone: [facility] 10-05-2022 13:09-0500 Diastolic blood pressure 80 mm[Hg] Dr. Addi Mario Work Phone: [facility] 10-05-2022 13:09-0500 Heart rate 56 /min Dr. Addi Mario Work Phone: [facility] 10-05-2022 13:09-0500 Respiratory rate 16 /min Dr. Addi Mario Work Phone: [facility] 10-05-2022 13:09-0500 Systolic blood pressure 153 mm[Hg] Dr. Addi Mario Work Phone: [facility] 09-08-2022 12:09-0500 Diastolic blood pressure 66 mm[Hg] Dr. Addi Mario Work Phone: [facility] 09-08-2022 12:09-0500 Heart rate 54 /min Dr. Addi Maroi Work Phone: [facility] 09-08-2022 12:09-0500 Systolic blood pressure 116 mm[Hg] Dr. Addi Mario Work Phone: [facility] 08-27-2022 15:25-0500 Diastolic blood pressure 74 mm[Hg] Dr. Addi Mario Work Phone: [facility] 08-27-2022 15:25-0500 Systolic blood pressure 142 mm[Hg] Dr. Addi Mario Work Phone: [facility] 08-27-2022 15:04-0500 Body height 182.[address] Addi Mario Work Phone: [facility] Work Phone: 08-27-2022 15:04-0500 Body mass index (BMI) [Ratio] 32.3 kg/m2 Dr. Addi Mario Work Phone: [facility] 08-27-2022 15:04-0500 Body temperature 96.3 [degF] Dr. Addi Mario Work Phone: [facility] 08-27-2022 15:04-0500 Body weight 107.[address] Addi Mario Work Phone: [facility] 08-27-2022 15:04-0500 Heart rate 55 /min Dr. Addi Mario Work Phone: [facility] 08-27-2022 15:04-0500 Respiratory rate 16 /min Dr. Addi Mario Work Phone: [facility] 08-27-2022 15:04-0500 SaO2% (BldA) [Mass fraction] 99 % Dr. Addi Mario Work Phone: [facility] 08-24-2022 08:12-0500 Diastolic blood pressure 70 mm[Hg] Dr. Addi Mario Work Phone: [facility] 08-24-2022 08:12-0500 Heart rate 56 /min Dr. Addi Mario Work Phone: [facility] 08-24-2022 08:12-0500 Respiratory rate 16 /min Dr. Addi Mario Work Phone: [facility] 08-24-2022 08:12-0500 SaO2% (BldA) [Mass fraction] 97 % Dr. Addi Mario Work Phone: [facility] 08-24-2022 08:12-0500 Systolic blood pressure 154 mm[Hg] Dr. Addi Mario Work Phone: [facility] 08-24-2022 06:09-0500 Body height 182.[address] Addi Mario Work Phone: [facility] Work Phone: 08-24-2022 06:09-0500 Body mass index (BMI) [Ratio] 32.8 kg/m2 Dr. Addi Mario Work Phone: [facility] 08-24-2022 06:09-0500 Body temperature 96.8 [degF] Dr. Addi Mario Work Phone: [facility] 08-24-2022 06:09-0500 Body weight 109.[address] Addi Mario Work Phone: [facility] 08-04-2022 14:02-0500 Body height 182.[address] Addi Mario Work Phone: [facility] Work Phone: 08-04-2022 14:02-0500 Body mass index (BMI) [Ratio] 32.3 kg/m2 Dr. Addi Mario Work Phone: [facility] 08-04-2022 14:02-0500 Body temperature 97.2 [degF] Dr. Addi Mario Work Phone: [facility] 08-04-2022 14:02-0500 Body weight 107.[address] Addi Mario Work Phone: [facility] 08-04-2022 14:02-0500 Diastolic blood pressure 78 mm[Hg] Dr. Addi Mario Work Phone: [facility] 08-04-2022 14:02-0500 Heart rate 52 /min Dr. Addi Mario Work Phone: [facility] 08-04-2022 14:02-0500 Respiratory rate 16 /min Dr. Addi Mario Work Phone: [facility] 08-04-2022 14:02-0500 SaO2% (BldA) [Mass fraction] 99 % Dr. Addi Mario Work Phone: [facility] 08-04-2022 14:02-0500 Systolic blood pressure 130 mm[Hg] Dr. Addi Mario Work Phone: [facility] 05-06-2022 11:43-0400 Body mass index (BMI) [Ratio] 32.4 kg/m2 Dr. Addi Mario Work Phone: [facility] Work Phone: 05-06-2022 11:43-0400 Body temperature 98.4 [degF] Dr. Addi Mario Work Phone: [facility] Work Phone: 05-06-2022 11:43-0400 Body weight 108.[address] Addi Mario Work Phone: [facility] Work Phone: 05-06-2022 11:43-0400 Diastolic blood pressure 72 mm[Hg] Dr. Addi Mario Work Phone: [facility] Work Phone: 05-06-2022 11:43-0400 Heart rate 61 /min Dr. Addi Mario Work Phone: [facility] Work Phone: 05-06-2022 11:43-0400 Respiratory rate 16 /min Dr. Addi Mario Work Phone: [facility] Work Phone: 05-06-2022 11:43-0400 SaO2% (BldA) [Mass fraction] 98 % Dr. Addi Mario Work Phone: [facility] Work Phone: 05-06-2022 11:43-0400 Systolic blood pressure 145 mm[Hg] Dr. Addi Mario Work Phone: [facility] Work Phone: 12-03-2021 14:07-0400 Body height 182.[address] Addi Mario Work Phone: [facility] Work Phone: 12-03-2021 14:07-0400 Body mass index (BMI) [Ratio] 32.3 kg/m2 Dr. Addi Mario Work Phone: [facility] Work Phone: 12-03-2021 14:07-0400 Body temperature 97.5 [degF] Dr. Addi Mario Work Phone: [facility] Work Phone: 12-03-2021 14:07-0400 Body weight 107.[address] Addi Mario Work Phone: [facility] Work Phone: 12-03-2021 14:07-0400 Diastolic blood pressure 82 mm[Hg] Dr. Addi Mario Work Phone: [facility] Work Phone: 12-03-2021 14:07-0400 Heart rate 73 /min Dr. Addi Mario Work Phone: [facility] Work Phone: 12-03-2021 14:07-0400 Respiratory rate 20 /min Dr. Addi Mario Work Phone: [facility] Work Phone: 12-03-2021 14:07-0400 SaO2% (BldA) [Mass fraction] 97 % Dr. Addi Mario Work Phone: [facility] Work Phone: 12-03-2021 14:07-0400 Systolic blood pressure 132 mm[Hg] Dr. Addi Mario Work Phone: [facility] Work Phone: 11-12-2021 11:46-0500 Body mass index (BMI) [Ratio] 32.8 kg/m2 Dr. Addi Mario Work Phone: [facility] Work Phone: 11-12-2021 11:46-0500 Body temperature 97.5 [degF] Dr. Addi Mario Work Phone: [facility] Work Phone: 11-12-2021 11:46-0500 Body weight 109.[address] Addi Mario Work Phone: [facility] Work Phone: 11-12-2021 11:46-0500 Diastolic blood pressure 68 mm[Hg] Dr. Addi Mario Work Phone: [facility] Work Phone: 11-12-2021 11:46-0500 Heart rate 47 /min Dr. Addi Mario Work Phone: [facility] Work Phone: 11-12-2021 11:46-0500 Respiratory rate 16 /min Dr. Addi Mario Work Phone: [facility] Work Phone: 11-12-2021 11:46-0500 SaO2% (BldA) [Mass fraction] 98 % Dr. Addi Mario Work Phone: [facility] Work Phone: 11-12-2021 11:46-0500 Systolic blood pressure 150 mm[Hg] Dr. Addi Mario Work Phone: [facility] Work Phone: 11-11-2021 14:41-0500 Diastolic blood pressure 92 mm[Hg] Dr. Addi Mario Work Phone: [facility] Work Phone: 11-11-2021 14:41-0500 Systolic blood pressure 182 mm[Hg] Dr. Addi Mario Work Phone: [facility] Work Phone: 10-15-2021 13:09-0500 Body mass index (BMI) [Ratio] 32.9 kg/m2 Dr. Addi Mario Work Phone: [facility] Work Phone: 10-15-2021 13:09-0500 Body temperature 97.7 [degF] Dr. Addi Mario Work Phone: [facility] Work Phone: 10-15-2021 13:09-0500 Body weight 110.[address] Addi Mario Work Phone: [facility] Work Phone: 10-15-2021 13:09-0500 Diastolic blood pressure 70 mm[Hg] Dr. Addi Mario Work Phone: [facility] Work Phone: 10-15-2021 13:09-0500 Heart rate 66 /min Dr. Addi Mario Work Phone: [facility] Work Phone: 10-15-2021 13:09-0500 Respiratory rate 16 /min Dr. Addi Mario Work Phone: [facility] Work Phone: 10-15-2021 13:09-0500 SaO2% (BldA) [Mass fraction] 97 % Dr. Addi Mario Work Phone: [facility] Work Phone: 10-15-2021 13:09-0500 Systolic blood pressure 142 mm[Hg] Dr. Addi Mario Work Phone: [facility] Work Phone: 09-23-2021 13:16-0500 Body mass index (BMI) [Ratio] 32.8 kg/m2 Dr. Addi Mario Work Phone: [facility] Work Phone: 09-23-2021 13:16-0500 Body temperature 95.7 [degF] Dr. Addi Mario Work Phone: [facility] Work Phone: 09-23-2021 13:16-0500 Body weight 109.[address] Addi Mario Work Phone: [facility] Work Phone: 09-23-2021 13:16-0500 Diastolic blood pressure 70 mm[Hg] Dr. Addi Mario Work Phone: [facility] Work Phone: 09-23-2021 13:16-0500 Heart rate 57 /min Dr. Addi Mario Work Phone: [facility] Work Phone: 09-23-2021 13:16-0500 Respiratory rate 16 /min Dr. Addi Mario Work Phone: [facility] Work Phone: 09-23-2021 13:16-0500 SaO2% (BldA) [Mass fraction] 96 % Dr. Addi Mario Work Phone: [facility] Work Phone: 09-23-2021 13:16-0500 Systolic blood pressure 166 mm[Hg] Dr. Addi Mario Work Phone: [facility] Work Phone: 08-18-2021 13:02-0500 Body mass index (BMI) [Ratio] 32.9 kg/m2 Dr. Addi Mario Work Phone: [facility] Work Phone: 08-18-2021 13:02-0500 Body weight 110.[address] Addi Mario Work Phone: [facility] Work Phone: 08-18-2021 13:02-0500 Diastolic blood pressure 69 mm[Hg] Dr. Addi Mario Work Phone: [facility] Work Phone: 08-18-2021 13:02-0500 Heart rate 47 /min Dr. Addi Mario Work Phone: [facility] Work Phone: 08-18-2021 13:02-0500 Respiratory rate 14 /min Dr. Addi Mario Work Phone: [facility] Work Phone: 08-18-2021 13:02-0500 Systolic blood pressure 127 mm[Hg] Dr. Addi Mario Work Phone: [facility] Work Phone: Encounters Encounter Date Encounter Type Care Provider Facility Start: 03-10-2025 ambulatory Rolan Peña Facility:[facility] Start: 03-07-2025 ambulatory Gretchen Nguyen Facility: [facility] Start: 03-05-2025 ambulatory Gretchen Nguyen Facility: [facility] Start: 02-19-2025 End: 02-19-2025 Patient encounter procedure Gretchen Nguyen [employer] Work Phone: Start: 02-19-2025 End: 02-19-[address] Addi Mario MD Work Phone: [facility] Work Phone: Start: 02-14-2025 End: 02-14-[address] Addi Mario MD -[facility] Work Phone: Start: 02-14-2025 End: 02-14-[address] Addi Mario MD Work Phone: [facility] Work Phone: Start: 02-14-2025 End: 02-14-2025 ambulatory Addi Mario Facility:[facility] Start: 01-14-2025 End: 01-14-2025 Patient encounter procedure Shawn Shea MD Work Phone: Ophthalmology Comment on above: 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, severe stage (Primary Dx) Start: 01-14-2025 End: 01-14-2025 ambulatory SHAWN SHEA Facility:[facility] Start: 01-02-2025 End: 01-02-[address] Addi Mario MD Work Phone: [facility] Work Phone: Start: 01-02-2025 End: 01-02-[address] Addi Mario MD -Radiology, [facility] Work Phone: Start: 01-02-2025 End: 01-02-2025 ambulatory [facility] Facility:[facility] Start: 12-31-2024 Encounter for antibo dy response examination Addi Mario [facility] Start: 12-27-2024 End: 12-27-[address] Addi Mario MD Work Phone: [facility] Work Phone: Start: 12-27-2024 End: 12-27-[address] Addi Mario MD -Laboratory, [place] Start: 12-27-2024 End: 12-27-2024 ambulatory josh Mario Facility:[facility] Start: 12-19-[address] Addi Mario MD Work Phone: [facility] Start: 12-14-2024 End: 12-14-2024 Patient encounter procedure Ailin Sharma NP- -[facility] Work Phone: Start: 12-14-2024 End: 12-14-2024 ambulatory Ailin Sharma NP Facility:[facility] Start: 11-30-2024 End: 11-30-2024 ambulatory Addi Mario Facility:[facility] Start: 11-30-2024 End: 11-30-[address] Addi Mario MD -[facility] Work Phone: Start: 11-27-2024 End: 11-27-2024 Telephone encounter Alexis Green MD Work Phone: Ophthalmology Start: 11-26-2024 End: 11-26-2024 ambulatory MANUEL LOGAN Facility:[facility] Start: 11-26-2024 End: 11-26-2024 Patient encounter procedure Shawn Shea MD Work Phone: Ophthalmology Comment on above: 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, severe stage Start: 11-15-2024 End: 11-15-[address] Addi Mario MD -[facility] Work Phone: Start: 11-15-2024 End: 11-15-[address] Addi Mario MD Work Phone: [facility] Work Phone: Start: 11-15-2024 End: 11-15-2024 ambulatory [facility] Facility:[facility] Start: 10-23-2024 End: 10-23-2024 Patient encounter procedure Ava Cardozo [facility] Work Phone: Start: 10-23-2024 End: 10-23-20[facility] Start: 10-03-2024 End: 10-03-2024 Telephone encounter Shawn Shea MD Work Phone: Ophthalmology Comment on above: follow up from 08/08 25 Start: 08-15-2024 End: 08-15-[address] Addi [facility] MD [facility] Work Phone: Start: 08-15-2024 End: 08-15-2024 [facility] Start: 08-14-2024 End: 08-15-2024 ambulatory MANUEL ANGEL LOGAN Facility:[facility] Start: 08-14-2024 End: 08-14-2024 Patient encounter procedure Priya Saleh OD Work Phone: Ophthalmology Comment on above: Redness of both eyes (Primary Dx); Primary open angle glaucoma (POAG) of both eyes, severe stage; Squamous blepharitis of upper and lower eyelids of both eyes; Epiretinal membrane (ERM) of left eye; Band keratopathy, bilateral Start: 08-09-2024 End: 08-09-2024 Patient encounter procedure Souleymane LUEVANO [facility] Work Phone: Start: 08-09-2024 End: 08-09-2024 ambulatory Souleymane LUEVANO Facility:[facility] Start: 07-30-2024 End: 07-30-2024 ambulatory MANUEL LOGAN Facility:[facility] Start: 07-30-2024 End: 07-30-2024 Patient encounter procedure Shawn Shea MD Work Phone: Ophthalmology Comment on above: 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, severe stage Start: 06-14-2024 End: 06-14-2024 ambulatory Efewongbe Oleghe Facility:[facility] Start: 05-16-2024 End: 05-16-2024 ambulatory Efewongbe Oleghe Facility:[facility] Start: 05-16-2024 End: 05-16-2024 [facility] Start: 05-15-2024 End: 05-15-2024 Telephone encounter Shawn Shea MD Work Phone: Ophthalmology Comment on above: Follow Up Start: 04-30-2024 ambulatory Quentin Beltran Facility:[facility] Start: 04-26-2024 End: 04-26-2024 ambulatory Ailin Sharma [employer] Facility:[facility] Start: 04-24-2024 End: 04-24-2024 ambulatory Ailin Sharma [employer] Facility:[facility] Start: 04-21-2024 End: 04-21-2024 ambulatory Ava LUEVANO Facility:[facility] Start: 04-19-2024 End: 04-19-2024 ambulatory Efewongbe Oleghe Facility:[facility] Start: 04-17-2024 End: 04-17-2024 ambulatory Dash Schmidt Facility:[facility] Start: 03-14-2024 Telephone encounter Lucina Wall Ophthalmology Comment on above: Consult to [facility] Start: 03-13-2024 End: 03-13-2024 ambulatory Ailin Sharma [employer] Facility:[facility] Start: 03-12-2024 End: 03-12-2024 ambulatory MANUEL LOGAN Facility:[facility] Start: 03-12-2024 End: 03-12-2024 Patient encounter procedure Shawn Shea MD Work Phone: Ophthalmology Comment on above: 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, severe stage Start: 03-10-2024 Refill Alexis panchal MD Work Phone: Ophthalmology Comment on above: Refill Request Start: 01-02-2024 Telephone encounter Shawn Shea MD Work Phone: Ophthalmology Comment on above: Medication Problem Start: 12-27-2023 End: 12-27-[address] Addi Mario Work Phone: [facility] Work Phone: Start: 12-21-2023 End: 12-21-2023 Admission to same day surgery center Dr. Addi Mario Work Phone: [facility] Start: 12-21-2023 End: 12-21-[address] Addi Mario Work Phone: [facility] Work Phone: Start: 12-08-2023 End: 01-01-2024 Evaluation and management of inpatient Dr. Addi Mario Work Phone: [facility]-Transitional Care Unit Start: 12-08-2023 Non-patient / Non-visit Dr. Addi Mario Work Phone: [facility] Work Phone: Start: 12-07-2023 Non-patient / Non-visit Dr. Addi Mario Work Phone: [facility] Work Phone: Start: 12-06-2023 Non-patient / Non-visit Dr. Addi Mario Work Phone: [facility] Work Phone: Start: 12-06-2023 Non-patient / Non-visit Dr. Addi Mario Work Phone: [facility] Start: 12-05-2023 Non-patient / Non-visit Dr. Addi Mario Work Phone: [facility] Work Phone: Start: 12-05-2023 Non-patient / Non-visit Dr. Addi Mario Work Phone: [facility] Start: 12-04-2023 Non-patient / Non-visit Dr. Addi Mario Work Phone: [facility] Work Phone: Start: 12-03-2023 Non-patient / Non-visit Dr. Addi Mario Work Phone: [facility] Work Phone: Start: 12-03-2023 Non-patient / Non-visit Dr. Addi Mario Work Phone: [facility] Start: 12-02-2023 Non-patient / Non-visit Dr. Addi Mario Work Phone: [facility] Work Phone: Start: 12-02-2023 End: 12-08-2023 Evaluation and management of inpatient Dr. Addi Mario Work Phone: [facility]-Progressive Care Unit Work Phone: Start: 11-07-2023 End: 11-07-2023 Patient encounter procedure Shawn Shea MD Work Phone: Ophthalmology Comment on above: 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, severe stage (Primary Dx) Start: 10-20-2023 End: 10-20-[address] Addi Mario Work Phone: [facility] Work Phone: Start: 10-17-2023 End: 10-17-[address] Addi Mario Work Phone: [facility]-Pulmonary Services/Neurology Work Phone: Start: 09-02-2023 Telephone encounter Shawn Shea MD Work Phone: Ophthalmology Start: 08-15-2023 End: 08-15-[address] Addi Mario Work Phone: [facility] Work Phone: Start: 07-04-2023 End: 07-04-2023 Patient encounter procedure Shawn Shea MD Work Phone: Ophthalmology Comment on above: 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, severe stage Start: 06-01-2023 End: 06-01-2023 Patient encounter procedure Shawn Shea MD Work Phone: Ophthalmology Comment on above: 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, severe stage (Primary Dx); Epiretinal membrane (ERM) of left eye; Band keratopathy, bilateral Start: 04-30-2023 End: 04-30-[address] Addi Mario Work Phone: [facility] Work Phone: Start: 04-30-2023 End: 04-30-[address] Addi Mario Work Phone: [facility]-Radiology, [facility] Work Phone: Start: 04-28-2023 End: 04-28-[address] Addi Mario Work Phone: [facility] Work Phone: Start: 04-22-2023 End: 04-22-2023 Emergency department patient [facility] Start: 04-12-2023 End: 04-12-[address] Addi Mario Work Phone: [facility] Work Phone: Start: 03-25-2023 End: 03-25-2023 Emergency department patient [facility] Dr. Addi Mario [facility] Start: 03-24-2023 End: 03-24-[address] Addi Mario Work Phone: [facility] Work Phone: Start: 03-23-2023 End: 03-23-[address] Addi Mario Work Phone: [facility] [place] Start: 03-21-2023 End: 03-21-2023 Emergency department patient visit Dr. Addi Mario Work Phone: [facility]-Emergency Department Work Phone: Start: 03-12-2023 End: 03-12-2023 Emergency department patient visit Dr. Addi Mario Work Phone: [facility]-Emergency Department Start: 01-24-2023 End: 01-24-[address] Addi Mario Work Phone: [facility] Start: 01-22-2023 End: 01-22-2023 Emergency department patient visit Dr. Addi Mario Work Phone: [facility]-Emergency Department Start: 12-29-2022 End: 12-29-[address] Addi Mario Work Phone: [facility] Start: 11-03-2022 End: 11-03-[address] Add[facility] Mario [facility] Start: 10-14-2022 Non-patient / Non-visit Dr. Addi Mario Work Phone: [facility] Start: 10-14-2022 End: 10-14-[address] Addi Mario Work Phone: [facility] Work Phone: Start: 10-14-2022 End: 10-14-[address] Addi Mario Work Phone: [facility]-Cardiovascular Services Start: 10-05-2022 End: 10-05-[address] Addi Mario Work Phone: [facility] Start: 09-08-2022 End: 09-08-[address] Addi Mario Work Phone: [facility]-Laboratory, Specimen Start: 09-08-2022 End: 09-08-[address] Addi Mario Work Phone: [facility] Start: 09-04-2022 End: 09-04-[address] Addi Mario Work Phone: [facility] Work Phone: Start: 09-04-2022 End: 09-04-[address] Addi Mario Work Phone: [facility]-Laboratory Start: 08-27-2022 End: 08-27-[address] Addi Mario Work Phone: [facility] Start: 08-24-2022 End: 08-24-2022 Emergency department patient visit Dr. Addi Mario Work Phone: [facility]-Emergency Department Start: 08-04-2022 End: 08-04-[address] Addi Mario Work Phone: [facility] Work Phone: Start: 08-04-2022 End: 08-04-[address] Addi Mario Work Phone: [facility]-Laboratory Start: 08-04-2022 End: 08-04-[address] Addi Mario Work Phone: [facility] Start: 07-10-2022 Refill Tristan rodriguez MD Work Phone: [facility] Comment on above: Refill Request Start: 05-06-2022 End: 05-06-[address] Add[facility] Mario [facility] Start: 12-11-2021 End: 12-11-[address] Addi Mario Work Phone: [facility]-Pulmonary Services/Neurology Start: 12-03-2021 End: 12-03-[address] Addi Mario Work Phone: [facility]-Laboratory Start: 12-03-2021 End: 12-03-[address] Addi Mario Work Phone: [facility] Start: 11-30-2021 End: 11-30-[address] Addi Mario Work Phone: [facility] Start: 11-12-2021 End: 11-12-[address] Add[facility] Mario [facility] Start: 11-11-2021 End: 11-11-[address] Addi Mario Work Phone: [facility] Start: 10-15-2021 End: 10-15-[address] Addi Mario Work Phone: [facility] Start: 09-23-2021 End: 09-23-[address] Addi Mraio [facility] Start: 08-18-2021 End: 08-18-[address] Addi Mario Work Phone: [facility] Start: 08-17-2021 Non-patient / Non-visit Dr. Addi Mario Work Phone: [facility] Start: 08-17-[address] Addi Mario Work Phone: [facility]-Cardiovascular Services Start: 12-22-2014 Patient encounter procedure Tristan Montana MD Work Phone: [facility] Procedures Date Procedure Procedure Detail Performing Clinician Start: 01-02-[address] Thiago Mario MD Work Phone: Start: 11-26-2024 Computerized ophthal jacoby imaging optic nerve Shawn Shea MD Work Phone: Start: 11-15-2024 Total iron binding capacity measurement Dr. Addi Mario MD Work Phone: Start: 07-30-2024 Visual field xm uni/ bi w/interp extended exam Shawn Shea MD Work Phone: Start: 03-14-2024 CONSULT TO [facility]IAL WORK Shawn Shea MD Work Phone: Start: 03-12-2024 Computerized ophthal jacoby imaging optic nerve Shawn Shea MD Work Phone: Start: 12-21-2023 Fluoroscopic guidance D r. Efewongbe Oleghe Work Phone: Start: 12-10-[address] Josias Mario Work Phone: Start: 12-07-2023 Fluoroscopic guidance Ashia Mario Work Phone: Start: 12-07-2023 Insertion of stent i nto ureter Dr. Addi Mario Work Phone: Start: 12-06-2023 CT of abdomen and pe lvis without contrast Dr. Addi Mario Work Phone: Start: 12-06-[address] Aleah Mario Work Phone: Start: 12-03-2023 Plain X-ray of femur Dr Luke Mario Work Phone: Start: 12-02-2023 CT of head without contrast Dr. Addi Mario Work Phone: Start: 12-02-2023 Bacteria identified in Blood by Culture Dr. Addi Mario Work Phone: Start: 12-02-2023 SARS-CoV-2, Influenz a & RSV (PCR) Dr. Addi Mario Work Phone: Start: 12-02-[address] Josias Mario Work Phone: Start: 12-02-2023 Plain chest X-ray Dr. Maria Del Carmen Mario Work Phone: Start: 07-04-2023 Visual field xm uni/ bi w/interp extended exam Shawn Shea MD Work Phone: Start: 06-01-2023 Computerized ophthal jacoby imaging optic nerve Shawn Shea MD Work Phone: Start: 04-30-2023 Plain chest X-ray Dr. Maria Del Carmen Mario Work Phone: Start: 04-22-2023 Plain chest X-ray Dr. Maria Del Carmen Mario Work Phone: Start: 04-22-2023 SARS-CoV-2 & FLU Ant igen (Rapid) Dr. Addi Mario Work Phone: Start: 01-22-2023 Plain x-ray of wrist Dr Luke Mario Work Phone: Start: 11-30-2021 Radiologic examinati on of knee Dr. Addi Mario Work Phone: Start: 01-07-2013 End: 11-02-2016 History of placement of stent for coronary artery disease S/P coronary artery stent placement Shawn Shea MD Work Phone: Measurement of occul t blood in stool specimen using immunoassay Dr. Addi Mario Work Phone: Measurement of occul t blood in stool specimen using immunoassay Dr. Addi Mario Work Phone: Plan of Treatment Date Care Activity Detail Author Start: 06-06-2030 Urine microalbumin profile DTaP,Tdap,Td Vaccine (2 - Td or Tdap) [facility] Start: 01-29-2026 End: 07-08-2026 OCT OPTIC NERVE CIRRUS OU (BOTH EYES) OCT OPTIC NERVE CIRRUS OU (BOTH EYES) [facility] Routine Primary open angle glaucoma (POAG) of both eyes, severe stage Expected: 01/29/2026, Expires: 07/08/2026 [facility] Work Phone: Comment on above: Expected: 01/29/2026, Expires: 6 Start: 12-11-2025 End: 05-20-2026 OCT OPTIC NERVE CIRRUS OU (BOTH EYES) OCT OPTIC NERVE CIRRUS OU (BOTH EYES) [facility] Routine Primary open angle glaucoma (POAG) of both eyes, severe stage Expected: 12/11/2025, Expires: 05/20/2026 [facility] Work Phone: Comment on above: Expected: 12/11/2025, Expires: Start: 08-14-2025 End: 01-21-2026 OCT OPTIC NERVE CIRRUS OU (BOTH EYES) OCT OPTIC NERVE CIRRUS OU (BOTH EYES) [facility] Routine Primary open angle glaucoma (POAG) of both eyes, severe stage Expected: 08/14/2025, Expires: 01/21/2026 [facility] Work Phone: Comment on above: Expected: 08/14/2025, Expires: 6 Start: 06-03-2025 End: 06-03-2025 Patient encounter procedure Ophthalmology Comment on above: Return in about 6 months (around 05/29/20) for OCT OU. Start: 03-27-2025 End: 09-03-2025 VISUAL FIELD 24-2 OU (BOTH EYES) VISUAL FIELD 24-2 OU (BOTH EYES) [facility] Routine Primary open angle glaucoma (POAG) of both eyes, severe stage Expected: 03/27/2025, Expires: 09/03/2025 [facility] Work Phone: Comment on above: Expected: 03/27/2025, Expires: 5 Start: 02-19-2025 Evaluation of diagnostic study results [facility] Start: 02-14-2025 CBC W Auto Differential panel - Blood [facility] Start: 02-14-2025 Comprehensive metabolic 2000 panel - Serum or Plasma [facility] Start: 02-14-2025 Magnesium measurement [facility] Start: 02-14-2025 T4 free measurement [facility] Start: 02-14-2025 Thyroid stimulating hormone measurement [facility] Start: 12-23-2024 Covid-19 Vaccine ( season) Covid-19 Vaccine ( season) [facility] Start: 11-26-2024 End: 11-26-2024 Patient encounter procedure 11/26/2024 2:00 PM EDT Office Visit [facility] [address] [place] [address] Shawn Shea MD [address] [place] [address] Return in about 4 months (around 11/27/2024) for OCT OU. Ophthalmology Comment on above: Return in about 4 months (around 11/28/19 25) for OCT OU. Start: 11-21-2024 End: 04-30-2025 OCT OPTIC NERVE CIRRUS OU (BOTH EYES) OCT OPTIC NERVE CIRRUS OU (BOTH EYES) [facility] Imaging Routine Primary open angle glaucoma (POAG) of both eyes, severe stage Expected: 11/21/2024, Expires: 04/30/2025 [facility] Work Phone: Comment on above: Expected: 11/21/2024, Expires: Start: 09-24-2024 End: 09-24-2024 Patient encounter procedure 09/24/2024 1:30 PM EST Office Visit [facility] [address] [place] [address] Shawn Shea MD [address] [place], [place] [id number] Return in about 6 months (around 09/11/2024) for VF . Ophthalmology Comment on above: Return in about 6 months (around 024) for VF . Start: 09-19-2024 Advance Directive Discussion Advance Directive Discussion [facility] Start: 07-30-2024 End: 07-30-2024 Patient encounter procedure 07/30/2024 2:00 PM EST Office Visit [facility] [address] [place] [address] Shawn Shea MD [address] [place], [place] [id number] Return in about 6 months (around 05/07/2024) for OCT OU. Ophthalmology Comment on above: Return in about 6 months (around 05/07/20 24) for OCT OU. Start: 06-15-2024 End: 11-22-2024 PACHYMETRY OU (BOTH EYES) PACHYMETRY OU (BOTH EYES) [facility] Imaging Routine Primary open angle glaucoma (POAG) of both eyes, severe stage Expected: 06/15/2024, Expires: 11/22/2024 [facility] Work Phone: Comment on above: Expected: 06/15/2024, Expires: Start: 06-15-2024 End: 11-22-2024 VISUAL FIELD 24-2 OU (BOTH EYES) VISUAL FIELD 24-2 OU (BOTH EYES) [facility] Routine Primary open angle glaucoma (POAG) of both eyes, severe stage Expected: 06/15/2024, Expires: 11/22/2024 [facility] Work Phone: Comment on above: Expected: 06/15/2024, Expires: Start: 05-20-2024 Influenza vaccination Influenza Vaccine (#1) [facility] Start: 05-07-2024 End: 05-07-2024 Patient encounter procedure 05/07/2024 2:00 PM EDT Office Visit [facility] [id number] [place] [address] Shawn Shea MD [address] [place] [id number] Return in about 6 months (around 05/07/2024) for OCT OU. Ophthalmology Comment on above: Return in about 6 months (around 05/07/20) for OCT OU. Start: 03-12-2024 End: 03-12-2024 Patient encounter procedure 03/12/2024 1:45 PM EDT Office Visit [facility] [address] [place] [address] Shawn Shea MD [address] [facility] [place] [address] date 03/12 Ophthalmology Comment on above: date 03/12 Start: 01-01-2024 Patient discharge [facility] Start: 12-30-2023 Blood chemistry [facility] Start: 12-22-2023 Referral to service [facility] Start: 12-21-2023 Patient discharge [facility] Start: 12-21-2023 Ambulation without limitation [facility] Start: 12-21-2023 Medication education [facility] Start: 12-21-2023 Taking patient vital signs [facility] Start: 12-21-2023 [facility] Start: 12-21-2023 Anes transurethral w/urethrocystoscopy nos ANESTH BLADDER SURGERY [facility] Start: 12-21-2023 Cysto w/ureteroscopy w/lithotripsy CYSTOURETERO W/LITHOTRIPSY [facility] Start: 12-15-2023 Speech therapy management [facility] Start: 12-15-2023 Speech therapy assessment [facility] Start: 12-09-2023 Development of care plan [facility] Start: 12-09-2023 Developing a treatment plan [facility] Start: 12-09-2023 [facility] Start: 12-08-2023 Verification routine [facility] Start: 12-08-2023 Following clinical pathway protocol [facility] Start: 12-08-2023 Admission procedure [facility] Start: 12-08-2023 Measuring intake and output [facility] Start: 12-08-2023 Patient referral to dietitian [facility] Start: 12-08-2023 Referral to occupational therapist [facility] Start: 12-08-2023 Referral to service [facility] Start: 12-08-2023 Vital signs measurements [facility] Start: 12-08-2023 [facility] Start: 12-08-2023 Patient discharge [facility] Start: 12-06-2023 Consultation [facility] Start: 12-06-2023 Patient referral [facility] Work Phone: Start: 12-05-2023 Notification of physician [facility] Start: 12-05-2023 Patient education [facility] Start: 12-05-2023 Provision of activity privileges [facility] Start: 12-05-2023 Pulse taking [facility] Start: 12-05-2023 Taking patient vital signs [facility] Start: 12-05-2023 Wound care [facility] Start: 12-05-2023 [facility] Start: 12-04-2023 Application of intermittent pneumatic compression device [facility] Start: 12-03-2023 Referral to occupational therapist [facility] Start: 12-03-2023 Referral to service [facility] Start: 12-03-2023 Inhalation therapy procedure [facility] Start: 12-02-2023 Following clinical pathway protocol [facility] Start: 12-02-2023 Ambulation without limitation [facility] Start: 12-02-2023 Assessment of risk of venous thromboembolism [facility] Start: 12-02-2023 Insertion of catheter into peripheral vein [facility] Start: 12-02-2023 Measuring intake and output [facility] Start: 12-02-2023 Providing care according to standard [facility] Start: 12-02-2023 Referral to relocation specialist [facility] Start: 12-02-2023 Referral to service [facility] Start: 12-02-2023 [facility] Start: 12-02-2023 Admission procedure [facility] Start: 12-02-2023 Hospital admission, emergency, from emergency room, medical nature [facility] Start: 12-02-2023 Troponin I measurement [facility] Start: 12-02-2023 [facility] Start: 12-02-2023 Bacteria identified in Blood by Culture Blood Culture [facility] Start: 12-02-2023 Bacteria identified in Urine by Culture [facility] Start: 12-02-2023 End: 12-02-2023 Blood culture [facility] Start: 12-02-2023 [facility] Start: 11-29-2023 Covid-19 Vaccine ( season) Covid-19 Vaccine () [facility] Start: 09-19-2023 Advance Directive Discussion Advance Directive Discussion [facility] Start: 09-19-2023 Behavioral Health Screening Behavioral Health Screening [facility] Start: 09-19-2023 Depression Assessment Depression Assessment [facility] Start: 05-20-2023 Covid-19 Vaccine ( season) Covid-19 Vaccine () [facility] Start: 05-20-2023 Influenza vaccination Influenza Vaccine (#1) [facility] Start: 04-22-2023 [facility] Start: 03-25-2023 Control nasal hemorrhage anterior simple CONTROL OF NOSEBLEED [facility] Start: 10-17-2022 Covid-19 Vaccine (6 - Moderna series) Covid-19 Vaccine (6 - Moderna series) [facility] Start: 09-19-2022 Advance Directive Discussion Advance Directive Discussion [facility] Start: 09-19-2022 Depression Assessment Depression Assessment [facility] Start: 05-20-2022 Influenza vaccination INFLUENZA (#1) [facility] Start: 09-19-2021 ADVANCE DIRECTIVE DISCUSSION ADVANCE DIRECTIVE DISCUSSION [facility] Start: 09-19-2021 DEPRESSION ASSESSMENT DEPRESSION ASSESSMENT [facility] Start: 09-22-2019 SHINGRIX VACCINE (3 of 3) SHINGRIX VACCINE (3 of 3) [facility] Start: 03-11-2019 DIABETES SCREEN DIABETES SCREEN [facility] Start: 03-11-2019 Diabetes Screening Diabetes Screening [facility] Start: 11-09-2017 Hepatitis B surface antibody level LDL Cholesterol [facility] Start: 05-25-2007 Urine microalbumin profile [facility] Start: 1997 Hepatitis B Vaccine (1 of 3 - Risk 3-dose series) Hepatitis B Vaccine (1 of 3 - Risk 3-dose series) [facility] Start: 02-21-1956 Hepatitis A Vaccine (1 of 2 - Risk 2-dose series) Hepatitis A Vaccine (1 of 2 - Risk 2-dose series) [facility] Start: 1955 Anxiety Screening Anxiety Screening [facility] Start: 1955 Depression Screening Depression Screening [facility] Start: 1955 Spirometry Spirometry [facility] Start: 1937 COVID-19 VACCINE (#1) COVID-19 VACCINE (#1) [facility] Alanine aminotransfe rase [Enzymatic activity/volume] in Serum or Plasma [facility] Albumin [Mass/volume ] in Serum or Plasma [facility] Alkaline phosphatase [Enzymatic activity/volume] in Serum or Plasma [facility] Ambulatory ECG [facility] Anion gap in Serum o r Plasma [facility] Anion gap measurement [facility] Bilirubin, total measurement [facility] Blood chemistry [facility] BUN/Creatinine ratio [facility] BUN/Creatinine ratio [facility] Calcium [Mass/volume ] in Serum or Plasma [facility] Calcium [Mass/volume ] in Serum or Plasma [facility] Carbon dioxide, tota l [Moles/volume] in Central venous blood [facility] Carbon dioxide, tota l [Moles/volume] in Serum or Plasma [facility] CBC W Auto Different ial panel - Blood [facility] Work Phone: Chloride [Moles/volu me] in Serum or Plasma [facility] Complete blood count [facility] Creatinine [Mass/vol ume] in Serum or Plasma [facility] Creatinine [Moles/vo lume] in Serum or Plasma [facility] Erythrocyte mean corpuscular volume determination [facility] Erythrocyte mean corpuscular volume determination [facility] Folate [Mass/volume] in Serum or Plasma [facility] Work Phone: Glucose [Mass/volume ] in Serum or Plasma [facility] Glucose [Mass/volume ] in Serum or Plasma [facility] Hematocrit [Volume Fraction] of Blood [facility] Hematocrit [Volume Fraction] of Blood [facility] Hemoglobin [Mass/vol ume] in Blood [facility] Hemoglobin [Mass/vol ume] in Blood [facility] Leukocytes [#/volume ] in Blood [facility] Leukocytes [#/volume ] in Blood [facility] Mean corpuscular hemoglobin concentration determination [facility] Mean corpuscular hemoglobin concentration determination [facility] Mean corpuscular hemoglobin determination [facility] Mean corpuscular hemoglobin determination [facility] Measurement of renal function [facility] Measurement of renal function [facility] Neutrophil count [facility] Neutrophil count [facility] Neutrophil percent differential count [facility] Neutrophil percent differential count [facility] Patient Education [facility] Work Phone: Patient referral [facility] Work Phone: Platelets [#/volume] in Blood [facility] Platelets [#/volume] in Blood [facility] Potassium [Moles/vol ume] in Serum or Plasma [facility] Potassium measurement [facility] Red blood cell count [facility] Red blood cell count [facility] Red cell distributio n width determination [facility] Red cell distributio n width determination [facility] Serum chloride measurement [facility] Sodium [Moles/volume ] in Serum or Plasma [facility] Sodium measurement [facility] Total protein measurement [facility] Urea nitrogen [Mass/volume] in Serum or Plasma [facility] Urea nitrogen [Mass/volume] in Serum or Plasma [facility] [employer] [facility] Vitamin B12 measurement [facility] Work Phone: Vitamin B12 measurement [facility] Immunizations Immunization Date Immunization Notes Care Provider Fa cili 06-14-2024 Seasonal trivalent influenza vaccine, adjuvanted, preservative free Dr. Addi Mario MD Work Phone: [facility] 12-13-2023 Covid (Spikevax) Dr. Audrey Mario Work Phone: [facility] 07-31-2023 Covid (Spikevax) Dr. Audrey Mario Work Phone: [facility] 07-31-2023 Pneumococcal Vaccine PCV20 (Prevnar 20) Dr. Addi Mario Work Phone: [facility] 06-26-2023 influenza, injectabl e, quadrivalent, preservative free Dr. Addi Mario Work Phone: [facility] 06-26-2023 influenza virus vaccine, unspecified formulation Shawn Shea MD Work Phone: [facility] 05-25-2022 influenza virus vaccine, unspecified formulation Shawn Shea MD Work Phone: [facility] 07-26-2021 Covid (Moderna) Dr. Lacho Mario Work Phone: [facility] 06-23-[address] Addi Mario Work Phone: [facility] 11-26-2020 Covid (Moderna) Dr. Lacho Mario Work Phone: [facility] 10-24-2020 Covid (Moderna) Dr. Lacho Mario Work Phone: [facility] 06-06-2020 tetanus toxoid, redu korin diphtheria toxoid, and acellular pertussis vaccine, adsorbed Dr. Addi Mario Work Phone: [facility] 05-27-[address] Addi Mario Work Phone: [facility] 07-28-2019 zoster vaccine recombinant Tristan Montana MD Work Phone: [facility] 07-13-2016 influenza, high dose seasonal, preservative-free Tristan Montana MD Work Phone: [facility] 06-10-2015 influenza, high dose seasonal, preservative-free Tristan Montana MD Work Phone: [facility] 09-27-2014 pneumococcal conjuga te vaccine, 13 valent Tristan Montana MD Work Phone: [facility] 07-24-2014 influenza, seasonal, injectable Tristan Montana MD Work Phone: [facility] 06-13-2013 influenza virus vaccine, unspecified formulation Tristan Montana MD Work Phone: [facility] 06-13-2012 influenza virus vaccine, unspecified formulation Tristan Montana MD Work Phone: [facility] 07-21-2010 zoster vaccine, live Maria Guadalupe Montana MD Work Phone: [facility] 08-23-2007 pneumococcal polysaccharide vaccine, 23 valent Tristan Montana MD Work Phone: [facility] 05-24-2007 tetanus and diphther ia toxoids, adsorbed, preservative free, for adult use (2 Lf of tetanus toxoid and 2 Lf of diphtheria toxoid) Tristan Montana MD Work Phone: [facility] 09-19-2001 pneumococcal polysaccharide vaccine, 23 valjuan Montana MD Work Phone: [facility] Payers Date Payer Category Payer Self-pay [id number] 2014 Medicare (Managed Care) PRIMETIM E [id number] 2014 Unknown PRIMETIME PRIMET ZACH HMO POS [id number] 2014-Present [phone] [place] [id number] HMO [id number] 2014 Unknown [id number] Unknown [id number]. 2.462 Unknown [id number] 2.840.1.664170.3.579. 2.462 Unknown [id number] 2.16840.1.211480.3.579. 2.462 Unknown [id number] 2.16840.1.580122.3.579. 2.462 Unknown [id number] 2.16.840.1.249781.3.579. 2.462 Unknown [id number] 2.16840.1.592877.3.579. 2.462 Unknown [id number] 2.16840.1.247943.3.579. 2.462 Unknown [id number] 2.16840.1.189137.3.579. 2.462 Unknown [id number] 2.840.1.152888.3.579. 2.462 Unknown [id number] 2.840.1.518984.3.579. 2.462 Unknown [id number] 2.840.1.278966.3.579. 2.462 Unknown [id number] 2.840.1.397407.3.579. 2.462 Unknown [id number] 2.840.1.634757.3.579. 2.462 Unknown [id number] 2.840.1.394051.3.579. 2.462 Unknown [id number] 2.840.1.066515.3.579. 2.462 Unknown [id number] 2.840.1.725678.3.579. 2.462 Unknown [id number] 2.840.1.993481.3.579. 2.462 Unknown [id number] 2.840.1.588972.3.579. 2.462 Unknown [id number] 2.840.1.082049.3.579. 2.462 Unknown [id number] 2.840.1.992029.3.579. 2.462 Unknown [id number] 2.840.1.717481.3.579. 2.462 Unknown [id number] 2.840.1.564779.3.579. 2.462 Unknown [id number] .840.1.782008.3.579. 2.462 Unknown [id number] 2.840.1.506829.3.579. 2.462 Unknown [id number] 2.840.1.662861.3.579. 2.462 Unknown [id number] 2.840.1.202624.3.579. 2.462 Unknown [id number] 2.840.1.620226.3.579. 2.462 Unknown [id number] 2.16.840.1.263813.3.579. 2.462 Social History Date Type Detail Facility Start: 12-03-2021 End: 12-27-2023 Tobacco smoking status NHIS Unknown if ever smoked [facility] Start: 02-12-2021 None [facility] Start: 06-11-2020 Spouse/ Signif icant Other [facility] Start: 02-12-2021 Non-smoker [facility] Start: 1935 Sex Assigned At Male [facility] Start: 11-02-2016 End: 08-09-2024 Tobacco smoking status NHIS Never smoked tobacco [facility] Work Phone: Start: 11-02-2016 Tobacco use and exposure Smokeless tobacco non-user [facility] Work Phone: Start: 11-22-2016 End: 01-14-2025 Alcohol intake Current drinker of alcohol (finding) [facility] Start: 11-02-2016 Alcohol Comment rare [facility] Start: 1935 Sex Assigned At Not on file [facility] Start: 06-01-2023 End: 05-07-2024 History of Social function [facility] Start: 06-01-2023 End: 05-07-2024 Tobacco use panel [facility] National Score (1-100), lower number is lower risk 67 [facility] Start: 11-29-2024 End: 01-07-2025 Sex Male (finding) [facility] Medical Equipment Procedure Code Equipment Code Equipment Origin al Text Equipment Identifier Dates Cystoscopy, with retrograde pyelogram and ureteral stent insertion STENT,URETERAL PIGTAIL [id number] FDA Start: 12-07-2023 Cystoscopy, with retrograde pyelogram and ureteral stent insertion STENT,URETERAL PIGTAIL [id number] FDA Start: 12-07-2023 Cystoscopy, with retrograde pyelogram and ureteral stent insertion STENT,URETERAL PIGTAIL [id number] FDA Start: 12-07-2023 Cystoscopy, with retrograde pyelogram and ureteral stent insertion STENT,URETERAL PIGTAIL [id number] FDA Start: 12-07-2023 Cystoscopy, with retrograde pyelogram and ureteral stent insertion STENT,URETERAL PIGTAIL [id number] FDA Start: 12-07-2023 Cystoscopy, with retrograde pyelogram and ureteral stent insertion STENT,URETERAL PIGTAIL [id number] FDA Start: 12-07-2023 Cystoscopy, with retrograde pyelogram and ureteral stent insertion STENT,URETERAL PIGTAIL [id number] FDA Start: 12-07-2023 Cystoscopy, with retrograde pyelogram and ureteral stent insertion STENT,URETERAL PIGTAIL [id number] FDA Start: 12-07-2023 Cystoscopy, with retrograde pyelogram and ureteral stent insertion STENT,URETERAL PIGTAIL [id number] FDA Start: 12-07-2023 Goals Date Patient Goal Desired Activity /State Functional Status Date Assessment Result Facility 01-01-2024 Functional status Ambulates [facility] Work Phone: 12-27-2023 Functional status Chair [facility] Work Phone: 12-08-2023 Functional status Ambulates [facility] Work Phone: 04-22-2015 Are you deaf, or do you have serious difficulty hearing No 04/22/2015 11:41 AM VIDALT Jason Grossman LPN No [facility] 04-22-2015 Are you blind, or do you have serious difficulty seeing, even when wearing glasses No 04/22/2015 11:41 AM Jason Tyson LPN No [facility] 04-22-2015 Do you have serious difficulty walking or climbing stairs No 04/22/2015 11:41 AM Jason Tyson LPN No [facility] 04-22-2015 Do you have difficul ty dressing or bathing No 04/22/2015 11:41 AM Jason Tyson LPN No [facility] 04-22-2015 Because of a physica l, mental, or emotional condition, do you have difficulty doing errands alone such as visiting a physician's office or shopping No 04/22/2015 11:41 AM Jason Tyson LPN No [facility] Mental Status Date Assessment Result Facility 01-01-2024 Cognitive function Voice/Name;Touch/Shaki ng [facility] Work Phone: 12-26-2023 Cognitive function Voice/Name;Touch/Dulce Maria stoddard [facility] Work Phone: 12-22-2023 Cognitive function Appropriate;Cooperativ e [facility] Work Phone: 12-21-2023 Cognitive function Voice/Name [facility] Work Phone: 12-08-2023 Cognitive function Voice/Name [facility] Work Phone: 12-02-2023 Cognitive function Level Of Cons ciousness Awake;Alert;Appropriate;Fol lows Commands [facility] Work Phone: 03-12-2023 Cognitive function Level Of Cons ciousness Awake;Alert;Appropriate;Fol lows Commands [facility] Work Phone: 04-22-2015 Because of a physica l, mental, or emotional condition, do you have serious difficulty concentrating, remembering, or making decisions No 04/22/2015 11:41 AM EDT Jason Grossman LPN No [facility] Clinical Notes 12-23-2015 to 01-14-2025 Patient InstructionsShawn Shea MD - 01/14/2025 2:30 PM EDTTelephone Encounter - Alexis Green MD - 11/27/2024 9:43 PM EDTTelephone Encounter - Alexis Green MD - 11/27/2024 9:43 PM EDT Note Date & Type Note Facility 01-14-2025 Instructions Shawn Shea MD - 01/14/2025 3:00 PM EDT You will be dilated on your next visit. This will likely make your vision blurry for several hours, and you should strongly consider bringing a cattle driver. documented in this encounter [facility] 01-14-2025 History of Presen t illness Narrative New from [place] Tmax: <22; Pachy: -, - Lasers and Surgeries: OD: CEIOL OS: 11/2022 Selected laser trabeculoplasty (SLT) Selected laser trabeculoplasty (SLT) previous yrs CEIOL Ocular Medication Intol and Non-efficacy: Bradycardia = BB Now on simbrinza 2/2, rocklatan 09/19 -HVF 07/2024 false negatives off OD [place], possible worse but only one baseline to compare to OS sparing sup arc, possible worse but only one baseline to compare to -OCT 11/2024 OD diffuse thinning OS diffuse thinning, possible progression inferior bundle # Primary open angle glaucoma (POAG) severe both eyes - low/mid teens both eyes on 3 agents both eyes - visual field with possible progression but only one prior to compare to and intraocular pressure is consistently low teens now - goal <= 14 both eyes - possible progression left eye OCT retinal nerve fiber layer - switch brim to simbrinza both eyes -> continue - use nannodropper to minimize side effect - follow 6 months, visual acuity, intraocular pressure, dilate, repeat OCT retinal nerve fiber layer Explained the importance of continuing daily glaucoma medication use # Pseudophakia both eyes - stable # [...] agree with all of its relevant components. documented in this encounter [facility] 01-14-2025 Note HNO ID: [id number] Author: SHAWN SHEA MD Service: ? Author Type: Physician Type: Progress Notes Filed: 01/14/2025 15:00 Note Text: New from [place] Tmax: <22; Pachy: -, - Lasers and Surgeries: OD: CEIOL OS: 11/2022 Selected laser trabeculoplasty (SLT) Selected laser trabeculoplasty (SLT) previous yrs CEIOL Ocular Medication Intol and Non-efficacy: Bradycardia = BB Now on simbrinza 2/2, rocklatan 09/19 -HVF 07/2024 false negatives off OD central island, possible worse but only one baseline to compare to OS sparing sup arc, possible worse but only one baseline to compare to -OCT 11/2024 OD diffuse thinning OS diffuse thinning, possible progression inferior bundle # Primary open angle glaucoma (POAG) severe both eyes - low/mid teens both eyes on 3 agents both eyes - visual field with possible progression but only one prior to compare to and intraocular pressure is consistently low teens now - goal <= 14 both eyes - possible progression left eye OCT retinal nerve fiber layer - switch brim to simbrinza both eyes -> continue - use nannodropper to minimize side effect - follow 6 months, visual acuity, intraocular pressure, dilate, repeat OCT retinal nerve fiber layer Explained the importance of continuing daily glaucoma medication use # Pseudophakia both eyes - stable # [...] agree with all of its relevant components. [facility] 01-03-2025 Procedure note [facility] 11-27-2024 Telephone encounter Note Received page that patient had called. Spoke to them on the phone at 9:43 PM. Patient has a history of POAG. JUAN with Dr. Shea 11/26/24 where Brimonidine was switched to simbrinza Patient reports significant burning when he applied the simbrinza for ~ 7 minutes. Discussed burning may improve overtime. Advised to try putting drops in the fridge so they are chilled prior to application and also lubricating eyes 10 minutes prior to applying the drops. Discussed if he cannot tolerate the burning after a few days to call Dr. Shea's office to discuss alternative measures Alexis Green MD Ophthalmology Resident [facility] Work Phone: 11-27-2024 Miscellaneous Notes Received page that patient had called. Spoke to them on the phone at 9:43 PM. Patient has a history of POAG. JUAN with Dr. Shea 11/26/24 where Brimonidine was switched to simbrinza Patient reports significant burning when he applied the simbrinza for ~ 7 minutes. Discussed burning may improve overtime. Advised to try putting drops in the fridge so they are chilled prior to application and also lubricating eyes 10 minutes prior to applying the drops. Discussed if he cannot tolerate the burning after a few days to call Dr. Shea's office to discuss alternative measures Alexis Green MD Ophthalmology Resident documented in this encounter [facility] 11-26-2024 Instructions Shawn Shea MD - 11/26/2024 2:03 PM EDT You will be dilated on your next visit. This will likely make your vision blurry for several hours, and you should strongly consider bringing a cattle driver. Medication Eye # times daily Rocklatan (white cap) BOTH 1x daily (bedtime) Simbrinza (light green cap) BOTH 2x daily *please remember to wait at least 3 minutes between different drops in the same eye. 11/26/24 documented in this encounter [facility] 11-26-2024 Note Date of Procedure 11/26/2024. [facility] Director Information Blood Bank Laboratory Professional: JOSÉ MANUEL. Start time: 1:44 PM. Stop time: 1:50 PM. NFL Interpretation Right Eye Diffuse loss. Left Eye Diffuse loss. Interval Change Right Eye Stable. Left Eye Worse. [facility] 11-26-2024 Note HNO ID: [id number] Author: SHAWN SHEA MD Service: ? Author Type: Physician Type: Progress Notes Filed: 01/07/2025 12:24 Note Text: New from [place] Tmax: <22; Pachy: -, - Lasers and Surgeries: OD: CEIOL OS: 11/2022 Selected laser trabeculoplasty (SLT) Selected laser trabeculoplasty (SLT) previous yrs CEIOL Ocular Medication Intol and Non-efficacy: Bradycardia = BB Now on alphagan 3, rocklatan 09/19 Next on simbrinza 2/2, rocklatan 09/19 -HVF 07/2024 false negatives off OD central island, possible worse but only one baseline to compare to OS sparing sup arc, possible worse but only one baseline to compare to -OCT 11/2024 OD diffuse thinning OS diffuse thinning, possible progression inferior bundle # Primary open angle glaucoma (POAG) severe both eyes - low/mid teens both eyes on 3 agents both eyes - visual field with possible progression but only one prior to compare to and intraocular pressure is consistently low teens now - goal <= 14 both eyes - possible progression left eye OCT retinal nerve fiber layer - switch brim to simbrinza both eyes - follow 5 months, visual acuity, intraocular pressure, dilate, repeat OCT retinal nerve fiber layer - Discussed continuation of drop usage to control chronic glaucoma # Pseudophakia both eyes - stable # Epiretinal membrane left eye - per outside records # band K both eyes - stable I have confirmed and edited as necessary the relevant ophthalmic history, ROS, and the neuro exam findings as obtained by others. I have seen and examined Jessee Bertrand Cherry. I have discussed the case and the management of this patient's care with the Resident/Fellow, if applicable. I also have reviewed and agree with the assessment and plan as stated above and agree with all of its relevant components. [facility] 11-26-2024 History of Present illness Narrative New from [place] Tmax: <22; Pachy: -, - Lasers and Surgeries: OD: CEIOL OS: 11/2022 Selected laser trabeculoplasty (SLT) Selected laser trabeculoplasty (SLT) previous yrs CEIOL Ocular Medication Intol and Non-efficacy: Bradycardia = BB Now on alphagan 3, rocklatan 09/19 Next on simbrinza 2/2, rocklatan 09/19 -HVF 07/2024 false negatives off OD central [place], possible worse but only one baseline to compare to OS sparing sup arc, possible worse but only one baseline to compare to -OCT 11/2024 OD diffuse thinning OS diffuse thinning, possible progression inferior bundle # Primary open angle glaucoma (POAG) severe both eyes - low/mid teens both eyes on 3 agents both eyes - visual field with possible progression but only one prior to compare to and intraocular pressure is consistently low teens now - goal <= 14 both eyes - possible progression left eye OCT retinal nerve fiber layer - switch brim to simbrinza base down both eyes - follow 5 months, visual acuity, intraocular pressure, dilate, repeat OCT retinal nerve fiber layer - Discussed continuation of drop usage to control chronic glaucoma # Pseudophakia both eyes - stable # Epiretinal membrane left eye - per outside records # band K both eyes - stable I have confirmed and edited as necessary the relevant ophthalmic history, ROS, and the neuro exam findings as obtained by others. I have seen and examined Jessee Elza Rust. I have discussed the case and the management of this patient's care with the Resident/Fellow, if applicable. I also have reviewed and agree with the assessment and plan as stated above and agree with all of its relevant components. documented in this encounter [facility] 10-23-2024 Evaluation note Diagnosis Onset Date Resolution Anemia chronic October 23, 2024 1:53pm Aortic stenosis chronic October 23, 2024 1:53pm Atherosclerosis of coronary artery of [place] heart without angina pectoris chronic October 23 1:53pm CHF (congestive heart failure) chronic October 23 1:53pm Hyperlipidemia chronic October 232024 1:53pm Paroxysmal atrial fibrillation October 23 1:53pm Sinus bradycardia chronic Februar 2024 1:53pm Swallowing disorder acute Febru saman 2024 3:01pm Anemia chronic November 15, 2024 3:01pm Asthma chronic November 15, 2024 3:01pm Essential hypertension chronic Fe bruary 2024 3:01pm Hyperlipidemia chronic October 212024 3:01pm Exposure to COVID-19 virus acute November 30, 2024 1:36pm Sore throat acute November 30, 2 025 1:36pm Asthma chronic December 14 1:29pm CHF (congestive heart failure) chronic December 14, 2024 1:29pm [facility] Work Phone: 1(139) 474-791002-04-2025 Evaluation note* Diagnosis Onset Date Resolution Status Admit Date Anemia chronic October 23, 2024 1:53pm Aortic stenosis chronic October 23, 2024 1:53pm Atherosclerosis of coronary artery of [place] heart without angina pectoris October 23 1:53pm CHF (congestive heart failure) chron ic October 23, 2024 1:53pm Hyperlipidemia chronic October 232024 1:53pm Paroxysmal atrial fibrillation chron ic October 23, 2024 1:53pm Sinus bradycardia chronic ua2024 1:53pm Swallowing disorder acute Febru 2024 3:01pm Anemia chronic November 15, 2024 3:01pm Asthma chronic November 15, 2024 3:01pm Essential hypertension chronic Fe bruary 2024 3:01pm Hyperlipidemia chronic October 212024 3:01pm Exposure to COVID-19 virus acute November 30, 2024 1:36pm Sore throat acute November 30, 2 1:36pm Asthma chronic December 14 1:29pm CHF (congestive heart failure) chron December 14, 2024 1:29pm Asthma chronic February 14, 2025 2:05pm Atrial fibrillation chronic January 182024 2:05pm Debility chronic February 14, 2025 2:05pm Essential hypertension chronic 2024 2:05pm Hyperlipidemia chronic February 14, 2025 2:05pm [facility] Work Phone: 1(528) 339-478202-04-2025 Evaluation note* Diagnosis Onset Date Resolution Status Admit Date Anemia chronic October 23, 2024 1:53pm Aortic stenosis chronic October 23, 2024 1:53pm Atherosclerosis of coronary artery of [place] heart without angina pectoris October 23 1:53pm CHF (congestive heart failure) chron ic October 23, 2024 1:53pm Hyperlipidemia chronic October 232024 1:53pm Paroxysmal atrial fibrillation chron ic October 23, 2024 1:53pm Sinus bradycardia chronic ua2024 1:53pm Swallowing disorder acute Febru 2024 3:01pm Anemia chronic November 15, 2024 3:01pm Asthma chronic November 15, 2024 3:01pm Essential hypertension chronic Fe bruary 2024 3:01pm Hyperlipidemia chronic October 212024 3:01pm Exposure to COVID-19 virus acute November 30, 2024 1:36pm Sore throat acute November 30, 2 025 1:36pm Asthma chronic December 14 1:29pm CHF (congestive heart failure) chron ic December 14, 2024 1:29pm Asthma chronic February 14, 2025 2:05pm Atrial fibrillation chronic January 182024 2:05pm Debility chronic February 14, 2025 2:05pm Essential hypertension chronic Ma y 2024 2:05pm Hyperlipidemia chronic February 14, 2025 2:05pm Anemia chronic February 19, 2025 2:15pm Aortic stenosis chronic February 19, 2025 2:15pm Atherosclerosis of coronary artery of [place] heart without angina pectoris chronic February 19, 2025 2 :15pm CHF (congestive heart failure) chron ic February 19, 2025 2:15pm Hyperlipidemia chronic February 19, 2025 2:15pm Paroxysmal atrial fibrillation chron ic February 19, 2025 2:15pm Sinus bradycardia chronic February 2:15pm [facility] Work Phone: 1(490) 800-173201-15-2025 Telephone encounter Note* Telephone Encounter - Leesa Stratton - 10/03/2024 3:10 PM EST Images from the original note were not included. spoke to pt Shawn Shea MD You; Farhat Herrera MD16 minutes ago (2:52 PM) Restart alphagan three times a day both eyes [facility] Work Phone: 1(385) 794-269301-15-2025 Miscellaneous Notes* Telephone Encounter - Leesa Stratton - 10/03/2024 3:10 PM EST Images from the original note were not included. spoke to pt Shawn Shea MD You; Farhat Herrera MD16 minutes ago (2:52 PM) Restart alphagan three times a day both eyes * Telephone Encounter - Leesa Stratton - 10/03/2024 2:19 PM EST patient reporting that he has not been taking his alphagan since 08/12, he was on the med for 2 days and then developed OU conjunctivitis, he took medicine for that but never went back on the alphagan what should he do at this point? [phone] he was offered an appt on 10/08 at [place] but he declined Shawn Shea MD filed at 07/30/2024 2:11 PM Status: Signed New from [place] Tmax: <22; Pachy: -, - Lasers and Surgeries: OD:CEIOL OS:11/2022 Selected laser trabeculoplasty (SLT) Selected laser trabeculoplasty (SLT) previous yrs CEIOL Ocular Medication Intol and Non-efficacy: Bradycardia = BB Now on alphagan 10/21, rocklatan 09/19 Next on alphagan 11/19, rocklatan 09/19 -HVF 07/2024 false negatives off [place], possible worse but only one baseline to compare to OS sparing sup arc, possible worse but only one baseline to compare to -OCT 02/2024 OD diffuse thinning, av 53 OS diffuse thinning, av 54 # Primary open angle glaucoma (POAG) severe both eyes - low/mid teens both eyes on 3 agents both eyes - visual field with possible progression but only one prior to compare to and intraocular pressure is consistently low teens now - goal <= 14 both eyes - make alphagan three times a day both eyes - follow 4 months, dilate, OCT retinal nerve fiber layer - Discussed continuation of drop usage to control chronic glaucoma # Pseudophakia both eyes - stable # [...] and plan as stated above and agree withall of it [facility] Tele[facility] encounter Note * Telephone Encounter - Leesa Stratton - 10/03/2024 2:19 PM EST patient reporting that he has not been taking his alphagan since 08/12, he was on the med for 2 days and then developed OU conjunctivitis, he took medicine for that but never went back on the alphagan what should he do at this point? [phone] he was offered an appt on 10/08 at [place] but he declined Shawn Shea MD filed at 07/30/2024 2:11 PM Status: Signed New from [place] Tmax: <22; Pachy: -, - Lasers and Surgeries: OD:CEIOL OS:11/2022 Selected laser trabeculoplasty (SLT) Selected laser trabeculoplasty (SLT) previous yrs CEIOL Ocular Medication Intol and Non-efficacy: Bradycardia = BB Now on alphagan 10/21, rocklatan 09/19 Next on alphagan 11/19, rocklatan 09/19 -HVF 07/2024 false negatives off [place], possible worse but only one baseline to compare to OS sparing sup arc, possible worse but only one baseline to compare to -OCT 02/2024 OD diffuse thinning, av 53 OS diffuse thinning, av 54 # Primary open angle glaucoma (POAG) severe both eyes - low/mid teens both eyes on 3 agents both eyes - visual field with possible progression but only one prior to compare to and intraocular pressure is consistently low teens now - goal <= 14 both eyes - make alphagan three times a day both eyes - follow 4 months, dilate, OCT retinal nerve fiber layer - Discussed continuation of drop usage to control chronic glaucoma # Pseudophakia both eyes - stable # [...] and plan as stated above and agree withall of it [facility]11-26-2024 NoteHNO ID: [id number] Author: PRIYA SALEH OD Service: ? Author Type: PHARMACY INTAKE COORDINATOR Type: Progress Notes Filed: 08/14/2024 10:07 Note Text: 1. Redness of both eyes Viral vs allergic conjunctivitis Possible brimonidine sensitivity but did improve with Polytrim per patient Per Dr. Shea recommendations, recommend Systane PF prior to glaucoma drop insertion Also recommended Systane gel nightly in boh eyes 2. Primary open angle glaucoma (POAG) of both eyes, severe stage Continue Brimonidine 3x daily and Rocklatan nightly in both eyes Continue follow-up with Dr. Shea as scheduled 3. Squamous blepharitis of upper and lower eyelids of both eyes Recommend warm compresses 4. Epiretinal membrane (ERM) of left eye Not assessed today- per outside records 5. Band keratopathy, bilateral Stable Follow-up with me as needed or as scheduled with Dr. Monse Saleh, CHRISTY August 14, 2024 10:03 [facility]11-26-2024 History of Present illness Narrative* Priya Saleh, OD - 08/14/2024 10:03 AM EST 1. Redness of both eyes Viral vs allergic conjunctivitis Possible brimonidine sensitivity but did improve with Polytrim per patient Per Dr. Shea recommendations, recommend Systane PF prior to glaucoma drop insertion Also recommended Systane gel nightly in boh eyes 2. Primary open angle glaucoma (POAG) of both eyes, severe stage Continue Brimonidine 3x daily and Rocklatan nightly in both eyes Continue follow-up with Dr. Shea as scheduled 3. Squamous blepharitis of upper and lower eyelids of both eyes Recommend warm compresses 4. Epiretinal membrane (ERM) of left eye Not assessed today- per outside records 5. Band keratopathy, bilateral Stable Follow-up with me as needed or as scheduled with Dr. Monse Saleh, CHRISTY August 14, 2024 10:03 AM [facility] Instructions* Patient Instructions* Priya Saleh, OD - 08/14/2024 9:22 AM EST Use PF Systane 5 minutes before each dose of Brimonidine Use Systane, Refresh or Blink gel nightly before bed in both eyes Use warm compresses daily [facility] Evaluation note* Diagnosis Onset Date Resolution Status Admit Date Bilateral conjunctivitis acute August 09, 2024 1:15pm Bilateral conjunctivitis acute August 15, 2024 2:19pm Anemia chronic August 15, 2024 2:19pm Essential hypertension chronic No vember 2023 2:19pm GERD (gastroesophageal reflu x disease) chronic August 15, 2:19pm Hyperlipidemia chronic July 212023 2:19pm Vitamin D deficiency chronic Nove mber 2023 2:19pm Anemia chronic October 23, 2024 1:53pm Aortic stenosis chronic October 23, 2024 1:53pm Atherosclerosis of coronary artery of [place] heart without angina pectoris chronic October 23 1:53pm CHF (congestive heart failure) chron ic October 23, 2024 1:53pm Hyperlipidemia chronic October 232024 1:53pm Paroxysmal atrial fibrillation chron ic October 23, 2024 1:53pm Sinus bradycardia chronic ua2024 1:53pm Swallowing disorder acute Febru saman 2024 3:01pm Anemia chronic November 15, 2024 3:01pm Asthma chronic November 15, 2024 3:01pm Essential hypertension chronic Fe bruary 2024 3:01pm Hyperlipidemia chronic October 212024 3:01pm [facility] Work Phone: 1(494) 527-554211-11-2024 Instructions* Patient Instructions* Shanw Shea MD - 07/30/2024 2:10 PM EST You will be dilated on your next visit. This will likely make your vision blurry for several hours, and you should strongly consider bringing a cattle driver. documented in [facility]11[facility] NoteDate of Procedure 07/30/2024. Reliability Right Eye Poor. Left Eye Poor. Interpretation Right Eye Arcuate defect, Altitudinal defect, Central defect. Left Eye Arcuate defect, Altitudinal defect, Central defect.[id number] NoteHNO ID: [id number] Author: SHAWN SHEA MD Service: ? Author Type: Physician Type: Progress Notes Filed: 07/30/2024 14:11 Note Text: New from [place] Tmax: <22; Pachy: -, - Lasers and Surgeries: OD: CEIOL OS: 11/2022 Selected laser trabeculoplasty (SLT) Selected laser trabeculoplasty (SLT) previous yrs CEIOL Ocular Medication Intol and Non-efficacy: Bradycardia = BB Now on alphagan 2/2, rocklatan 09/19 Next on alphagan 3/3, rocklatan 09/19 -HVF 07/2024 false negatives off [place], possible worse but only one baseline to compare to OS sparing sup arc, possible worse but only one baseline to compare to -OCT 02/2024 OD diffuse thinning, av 53 OS diffuse thinning, av 54 # Primary open angle glaucoma (POAG) severe both eyes - low/mid teens both eyes on 3 agents both eyes - visual field with possible progression but only one prior to compare to and intraocular pressure is consistently low teens now - goal <= 14 both eyes - make alphagan three times a day both eyes - follow 4 months, dilate, OCT retinal nerve fiber layer - Discussed continuation of drop usage to control chronic glaucoma # Pseudophakia both eyes - stable # Epiretinal membrane left eye - per outside records # band K both eyes - stable I have confirmed and edited as necessary the relevant ophthalmic history, ROS, and the neuro exam findings as obtained by others. I have seen and examined Jessee Ruts. I have discussed the case and the management of this patient's care with the Resident/Fellow, if applicable. I also have reviewed and agree with the assessment and plan as stated above and agree with all of its relevant components.[facility]11-11-2024 History of Present illness Narrative* Shawn Shea MD - 07/30/2024 2:05 PM EST New from [place] Tmax: <22; Pachy: -, - Lasers and Surgeries: OD: CEIOL OS: 11/2022 Selected laser trabeculoplasty (SLT) Selected laser trabeculoplasty (SLT) previous yrs CEIOL Ocular Medication Intol and Non-efficacy: Bradycardia = BB Now on alphagan 2/2, rocklatan 09/19 Next on alphagan 3/3, rocklatan 09/19 -HVF 07/2024 false negatives off [place], possible worse but only one baseline to compare to OS sparing sup arc, possible worse but only one baseline to compare to -OCT 02/2024 OD diffuse thinning, av 53 OS diffuse thinning, av 54 # Primary open angle glaucoma (POAG) severe both eyes - low/mid teens both eyes on 3 agents both eyes - visual field with possible progression but only one prior to compare to and intraocular pressure is consistently low teens now - goal <= 14 both eyes - make alphagan three times a day both eyes - follow 4 months, dilate, OCT retinal nerve fiber layer - Discussed continuation of drop usage to control chronic glaucoma # Pseudophakia both eyes - stable # [...] and plan as stated above and agree withall of its relevant components. [facility] in [facility] encounter[facility]08-[facility] Telephone encounter Note * Telephone Encounter - Joe Andrey Mikaela - 05/15/2024 10:14 AM EDT He's calling as about 4:45 this morning everything he was seeing was green, like a green filter in his vision. He did go back to sleep and his vision returned to normal, but he was told to let you know if anything changed. His vision is a slight bit blurry this morning. Shawn Shea MD filed at 03/12/2024 2:50 PM Status: Signed New from [place] Tmax: <22; Pachy: -, - Lasers and Surgeries: OD:CEIOL OS:11/2022 Selected laser trabeculoplasty (SLT) Selected laser trabeculoplasty (SLT) previous yrs CEIOL Ocular Medication Intol and Non-efficacy: Bradycardia = BB Now on alphagan 2/2, rocklatan / -HVF 06/2023 OD [place] OS sparing sup arc -OCT 02/2024 OD diffuse thinning, av 53 OS diffuse thinning, av 54 # Primary open angle glaucoma (POAG) severe both eyes - low/mid teens both eyes on 3 agents both eyes - OCT retinal nerve fiber layer stable - goal <= 14 both eyes - follow 6 months, visual field # Pseudophakia both eyes - stable # Epiretinal membrane left eye - per outside records # band K both eyes - stable [facility]08-27-[facility] Miscellaneous Notes* Telephone Encounter - Mikaela Tillman - 05/15/2024 10:14 AM EDT He's calling as about 4:45 this morning everything he was seeing was green, like a green filter in his vision. He did go back to sleep and his vision returned to normal, but he was told to let you know if anything changed. His vision is a slight bit blurry this morning. Shawn Shea MD filed at 03/12/2024 2:50 PM Status: Signed New from [place] Tmax: <22; Pachy: -, - Lasers and Surgeries: OD:CEIOL OS:11/2022 Selected laser trabeculoplasty (SLT) Selected laser trabeculoplasty (SLT) previous yrs CEIOL Ocular Medication Intol and Non-efficacy: Bradycardia = BB Now on alphagan 2/2, rocklatan 09/19 -HVF 06/2023 [place] OS sparing sup arc -OCT 02/2024 OD diffuse thinning, av 53 OS diffuse thinning, av 54 # Primary open angle glaucoma (POAG) severe both eyes - low/mid teens both eyes on 3 agents both eyes - OCT retinal nerve fiber layer stable - goal <= 14 both eyes - follow 6 months, visual field # Pseudophakia both eyes - stable # Epiretinal membrane left eye - per outside records # band K both eyes - stable documented in [facility] encounterM[facility]06-[facility] Telephone encounter Note * Telephone Encounter - Lucina Friedman LSW - 03/14/2024 1:38 PM EDT signal worker helper received a consult order from Dr. Shea who is referring the patient to the [facility] for low vision services. signal worker helper called the patient and discussed the referral and sight center services. Patient states that the sight center is too far from [place], [place] and has requested SW to send him vision resources. signal worker helper and patient discussed use of I-Phone and I-Pad vision accessibility for improved reading and using AI Kamala for additional assistance with reading information. Patient is very comfortable using assistive technology and prefers to the methods he is currently using for visual adaptations. Discussed at length [employer] videos for [employer] and other informationfrom various websites that would be helpful for the patient. SW provided education and information about the Independent Living Program through [employer] [facility] [place] and that SW can help the patient with the application and connection to an [facility] counselor who could provide low vision assessment and adaptive visual aids from an in-home visit. Patient would like the information sent and will think about it and get back to this SW. signal worker helper to email vision resources. Patient will reach out to as needed. Contact information provided. [facility]06-[facility] Miscellaneous Notes* Telephone Encounter - Lucina Friedman LSW - 03/14/2024 1:38 PM EDT signal worker helper received a consult order from Dr. Shea who is referring the patient to the [facility] for low vision services. signal worker helper called the patient and discussed the referral and sight center services. Patient states that the sight center is too far from [place], [place] and has requested SW to send him vision resources. signal worker helper and patient discussed use of I-Phone and I-Pad vision accessibility for improved reading and using AI Kamala for additional assistance with reading information. Patient is very comfortable using assistive technology and prefers to the methods he is currently using for visual adaptations. Discussed at length [employer] YouTube videos for [employer] learning and other informationfrom various websites that would be helpful for the patient. SW provided education and information about the Independent Living Program through [employer] [facility] [place] ([facility]) and that SW can help the patient with the application and connection to an O[facility] counselor who could provide low vision assessment and adaptive visual aids from an in-home visit. Patient would like the information sent and will think about it and get back to this SW. signal worker helper to email vision resources. Patient will reach out to as needed. Contact information provided. documented in this encounterM[facility]06-24-2024 Note* Addendum Note - Shawn Shea MD - 03/12/2024 2:52 PM EDTAddended by: SHAWN SHEA on: 03/12/2024 02:52 PM Modules accepted: Orders [facility]06-24-2024 Miscellaneous Notes* Addendum Note - Shawn Shea MD - 03/12/2024 2:52 PM EDTAddended by: SHAWN SHEA on: 03/12/2024 02:52 PM Modules accepted: Orders documented in this encounterM[facility]06-24-2024 NoteDate of Procedure 03/12/2024. Craft Center Director Information Blood Bank Laboratory Professional: Start time: 2:37 PM. Stop time: 2:37 PM. NFL Interpretation Right Eye Diffuse loss. Left Eye Diffuse loss. Interval Change Right Eye Stable. Left Eye Stable.[id number] History of Present illness Narrative* Shawn Shea MD - 03/12/2024 1:45 PM EDT New from [place] Tmax: <22; Pachy: -, - Lasers and Surgeries: OD: CEIOL OS: 11/2022 Selected laser trabeculoplasty (SLT) Selected laser trabeculoplasty (SLT) previous yrs CEIOL Ocular Medication Intol and Non-efficacy: Bradycardia = BB Now on alphagan 2/2, rocklatan / -HVF 06/2023 OD [place] OS sparing sup arc -OCT 02/2024 OD diffuse thinning, av 53 OS diffuse thinning, av 54 # Primary open angle glaucoma (POAG) severe both eyes - low/mid teens both eyes on 3 agents both eyes - OCT retinal nerve fiber layer stable - goal <= 14 both eyes - follow 6 months, visual field # Pseudophakia both eyes - stable # [...] and plan as stated above and agree withall of its relevant components. documented in this encounterM[facility]06-24-2024 NoteHNO ID: [id number] Author: SHAWN SHEA MD Service: ? Author Type: Physician Type: Progress Notes Filed: 03/12/2024 14:50 Note Text: New from [place] Tmax: <22; Pachy: -, - Lasers and Surgeries: OD: CEIOL OS: 11/2022 Selected laser trabeculoplasty (SLT) Selected laser trabeculoplasty (SLT) previous yrs CEIOL Ocular Medication Intol and Non-efficacy: Bradycardia = BB Now on alphagan 2/2, rocklatan 09/19 -HVF 06/2023 [place] OS sparing sup arc -OCT 02/2024 OD diffuse thinning, av 53 OS diffuse thinning, av 54 # Primary open angle glaucoma (POAG) severe both eyes - low/mid teens both eyes on 3 agents both eyes - OCT retinal nerve fiber layer stable - goal <= 14 both eyes - follow 6 months, visual field # Pseudophakia both eyes - stable # [...] and agree with all of its relevant components.[facility] Tele[facility] encounter Note* Telephone Encounter - Alexis Green MD - 03/10/2024 11:21 AM EDT Received page that patient had called. Spoke to them on the phone at 11:24 AM. Patient has a history of POAG follows with Dr. Shea Patient requesting med refills sent to [facility]. Refills sent Alexis Green MD Ophthalmology Resident [facility]06-22-2024 Miscellaneous Notes* Telephone Encounter - Alexis Green MD - 03/10/2024 11:21 AM EDT Received page that patient had called. Spoke to them on the phone at 11:24 AM. Patient has a history of POAG follows with Dr. Shea Patient requesting med refills sent to [facility] on [facility]. Refills sent Alexis Green MD Ophthalmology Resident documented in this encounterM[facility]04-25-2024 Miscellaneous Notes* Telephone Encounter - Malu Elias COA - 01/12/2024 3:37 PM EDT Spoke with Marta from [place] and advised her the drops are not duplicates and the patient does need to use both drops. * Telephone Encounter - Tania Beckett - 01/02/2024 12:26 PM EDT Marta from [facility] calling to let Dr. Shea that when she reconciled the patient's eye drops the computer showed them has duplicates. They are the brimonidine 0.01% drop and ROCKLATAN 0.02-0.005% ophthalmic solution. She believes they are the same. She can be reached at [phone]. [facility] * Telephone Encounter - Malu Elias COA - 01/12/2024 3:37 PM EDT Spoke with Marta from [place] and advised her the drops are not duplicates and the patient does need to use both drops. [facility]04-15-2024 Telephone encounter Note* Telephone Encounter - Tania Beckett - 01/02/2024 12:26 PM EDT Marta from [facility] calling to let Dr. Shea that when she reconciled the patient's eye drops the computer showed them has duplicates. They are the brimonidine 0.01% drop and ROCKLATAN 0.02-0.005% ophthalmic solution. She believes they are the same. She can be reached at [phone]. [facility]04-12-2024 Discharge summary Author Arsenio Mcgregor [facility] December 30, 2023 1:55pm Note Date/Time December 30, 2023 1:4 6pm [facility] Medical Records Department [address] [place] [address] Discharge Summary 12/30/23 1345 MR#: [id number] Acct: [id number] Name: JESSEE RUST Rep #:[id number] : 1935 88 From: Arsenio Mcgregor MD PCP: Dr. Addi Mario MD Status:A DM IN Location: [facility]17-1 Providers Date of Admission: 12/08/23 Primary Care Physician: Dr. Addi Mario MD Reason For Visit: N STEMI WITH UTI & PNEUMONIA Diagnosis Discharge Diagnosis (1) Debility: Status: Acute Code(s): R53.81 - Other malaise (2) Non-STEMI (non-ST elevated myocardial infarction): Status: Inactive Code(s): I21.4 - Non-ST elevation (NSTEMI) myocardial infarction (3) Encephalopathy: Status: Acute Code(s): G93.40 - Encephalopathy, unspecified (4) Urinary tract infection: Status: Resolved Code(s): N39.0 - Urinary tract infection, site not specified (5) Pneumonia: Status: Acute Code(s): J18.9 - Pneumonia, unspecified organism (6) Right ureteral stone: Status: Acute Code(s): N20.1 - Calculus of ureter (7) Atrial fibrillation: Status: Acute Code(s): I48.91 - Unspecified atrial fibrillation (8) Glaucoma: Status: Chronic Code(s): H40.9 - Unspecified glaucoma (9) Allergic rhinitis: Status: Acute Code(s): J30.9 - Allergic rhinitis, unspecified (10) Asthma: Status: Chronic Code(s): J45.909 - Unspecified asthma, uncomplicated Qualifiers: Asthma severity: unspecified severity Asthma persistence: unspecified Asthma complication type: uncomplicated Qualified Code(s): J45.909 - Unspecified asthma, uncomplicated (11) Hyperlipidemia: Status: Inactive Code(s): E78.5 - Hyperlipidemia, unspecified Qualifiers: Hyperlipidemia type: unspecified Qualified Code(s): E78.5 - Hyperlipidemia, unspecified (12) GERD (gastroesophageal reflux disease): Status: Acute Code(s): K21.9 - Gastro-esophageal reflux disease without esophagitis (13) BPH (benign prostatic hyperplasia): Status: Acute Code(s): N40.0 - Benign prostatic hyperplasia without lower urinary tract symptoms (14) Primary biliary cirrhosis: Status: Acute Code(s): K74.3 - Primary biliary cirrhosis (15) CAD (coronary artery disease): Status: Inactive Code(s): I25.10 - Atherosclerotic heart disease of [place] coronary artery without angina pectoris Plan 88 year old male with below past medical history hospitalized for UTI, pneumonia, encephalopathy, complicated by NSTEMI, FRANKLIN, right ureteral stone, s/pright ureteral stent, admitted to TCU with debility, here for rehabilitation, strengthening, prior to discharge home with . * Debility - PT/OT. * Pain - Tylenol 1000mg q6 prn pain (1-10), Arthritis cream topical daily prn. * Bowel - senna/colace 1 tablet bid, Magnesium citrate 300ml po x 1 dose, Dulco lax 10mg pr daily prn. * Adult immunization - Administer pneumonia vaccine, covid vaccine, flu vaccine as appropriate. * DVT prophylaxis - Monitor. * Asthma - Fluticasone/salmeterol 232-14 1 puff bid, Albuterol 2 puffs q4h prn. * Coronary artery disease - Carvedilol 6.25mg bidcm, Aspirin 81mg daily, NTG 0.4mg sc q5m prn. * Hyperlipidemia - Atorvastatin 20mg qhs. * Cold sores lips - Bacitracin ointment topical bid. * Glaucoma - Brimonidine 1gtt ou bid, Latanoprost 0.005% 1gtt ou qhs, Rocklatan 1gtt ou qhs. * E. Coli UTI - Cefdinir 300mg bid thru 12/13/2023. * Vitamin D deficiency - D3 50mcg daily. * Vitamin B12 deficiency - B12 1000mcg daily. * Hyperlipidemia - Zetia 10mg daily. * GERD - Famotidine 20mg daily. * Iron deficiency anemia - Ferrous sulfate 325mg every other day. * BPH - Finasteride 5mg daily. * Edema - Furosemide 40mg daily. * Congestion - Mucinex 1200mg bid. * Allergic rhinitis - Loratadine 10mg daily prn. * Hypomagnesemia - Magnesium chloride 128mg qhs. * Nutrition - MVI daily. * Hypokalemia - KCL 10meq daily. * Primary biliary cirrhosis - Ursodiol 500mg bidcm. Medications at Discharge Home Medications aspirin 81 mg tablet,delayed release 81 mg PO DAILY@0800 [facility] 12/06/16 travoprost 0.004 % eye drops 1 drp EACH EYE QHS glaucoma 06/02/19 magnesium oxide (Cornejo) 1,500 mg PO QHS Supplement 08/05/20 cholecalciferol (vitamin D3) 50 mcg (2,000 unit) tablet 50 mcg PO DAILY Supplement 11/19/20 cyanocobalamin (vitamin B-12) 1,000 mcg capsule 1,000 mcg PO DAILY Supplement 11/19/20 Disability Placard #1 ea 12/01/21 Arthritis Compound 1 click topical DAILY PRN Pain #60 CLICKS 02/08/22 albuterol sulfate 90 mcg/actuation aerosol inhaler (Ventolin HFA) 2 puff inhalation Q4H PRN Asthma #8.5 grams 04/28/23 nebulizer and compressor (Portable Nebulizer System) #1 ea 04/30/23 atorvastatin 20 mg tablet 20 mg PO QHS cholesterol #90 tabs 07/07/23 famotidine 20 mg tablet 20 mg PO DAILY GERD #90 tabs 08/10/23 brimonidine 0.1 % eye drops 1 drp ophthalmic (eye) DAILY Eye drops 08/15/23 budesonide-formoterol HFA 160 mcg-4.5 mcg/actuation aerosol inhaler (Symbicort) 2 puff inhalation BID Asthma 08/15/23 finasteride 5 mg tablet 5 mg PO DAILY BPH #90 tabs 08/18/23 ezetimibe 10 mg tablet 10 mg PO DAILY heart health #90 tabs 09/15/23 nitroglycerin 0.4 mg sublingual tablet 0.4 mg sublingual Q5-15M PRN chest pain #25 tabs 09/15/23 ferrous sulfate 325 mg (65 mg iron) tablet 325 mg PO QODAY Supplement #90 tabs 11/23/23 qnmoguct-pcr-ibhjs acid 0.4 mg-lycopene 300 mcg-lutein 250 mcg tablet (Centrum Silver) 1 tab PO DAILY supplement 12/02/23 netarsudil 0.02 %-latanoprost 0.005 % eye drops (Rocklatan) 1 drp ophthalmic (eye) QHS Eye drops 12/02/23 acetaminophen 500 mg tablet 1,000 mg (2 x 500 mg) PO Q6H PRN PRN Pain Score 1- 10#0 tabs 12/30/23 carvedilol 6.25 mg tablet 6.25 mg PO BIDCM 30 days #60 tabs 12/30/23 furosemide 40 mg tablet 40 mg PO DAILY 30 days #30 tabs 12/30/23 potassium chloride 10 mEq tablet,extended release(part/cryst) 10 meq PO DAILY 30days #30 tabs 12/30/23 ursodiol 250 mg tablet 500 mg (2 x 250 mg) PO BIDCM #0 tabs 12/30/23 Hospital Course Operations - (See below.) Procedures None Summary of Care Provided Minutes Spent on Discharge: 35 Hospital Course: 88 year old male with below past medical history hospitalized for UTI, pneumonia, encephalopathy, complicated by NSTEMI, FRANKLIN, right ureteral stone, s/pright ureteral stent, admitted to TCU with debility, here for rehabilitation, strengthening, prior to discharge home with . 12/21/2023 Dr. eLe Surgery/Procedure Performed:: Cystoscopy, right ureteroscopylaser lithotripsy of stone and removal of stent Discharge home with 01/01/2024, [facility] PT/OT/RN. Physical Exam Const alert General Appearance: cooperative HEENT normocephalic Eyes PERRL and EOMs intact bilaterally Neck supple, no JVD and no carotid bruits Resp normal respiratory effort, normal air movement and clear to auscultation bilaterally Cardio regular rate and regular rhythm GI normal to inspection, nondistended, normoactive bowel sounds, non-tender and non-distended Extremity normal capillary refill General Extremity: Negative for edema Skin no rashes or lesions noted General Skin Exam: no breakdown Psych affect normal Appearance: appropriate Weight / BMI Weight Weight: 99.836 kg Body Mass Index (BMI) 29.7 ABG / Lab / Microbiology Data 12/30/23 05:39 12/30/23 05:39 Laboratory: Laboratory Results - last 24 hr 12/30/23 05:39: WBC 8.0, RBC 3.30 L, Hgb 9.8 L, Hct 31.8 L, MCV 96.4 H, MCH 29.7, MCHC 30.8 L, RDW Std Deviation 55.5 H, RDW Coeff of Angelia 15.6 H, Plt Count 183, MPV 9.7, Immature Gran % (Auto) 0.600, Neut % (Auto) 44.5 L, Lymph % (Auto)35.0, Hooker % (Auto) 13.6 H, Eos % (Auto) 5.4 H, Baso % (Auto) 0.9, Absolute Neuts (auto) 3.6, Absolute Lymphs (auto) 2.79, Nucleated RBC % 0, Sodium 138, Potassium 4.2, Chloride 105, Carbon Dioxide 33.0 H, Anion Gap 0 L, BUN 24 H, Creatinine 1.26, Estim Creat Clear Calc 51.48, Est GFR (MDRD) Af Amer 70, Est GFR (MDRD) Non-Af 58 L, BUN/Creatinine Ratio 19.0, Glucose 103, Calcium 9.2 Microbiology: Microbiology 12/10/23 13:22 Urine, Midstream Urine Culture - Final Presumptive C albicans Gram negative savannah D/C Instructions Discharge Diet: No restrictions Discharge Activity: Return to Normal Activity, May Shower and Use Walker Weight Bearing Status: Weight bearing as tolerated Call your doctor if you observe: Fever of 101 or Higher, Inability to urinate, Inability to have a bowel movement, Shortness of breath, Dizziness, Fainting spells, Swelling in the ankles, Chest pain and Uncontrolled pain Additional Instructions: Discharge home with 01/01/2024, [facility] PT/OT/RN. Please Follow Up With: Darien Lee MD When: As scheduled. Meaningful Use Info Meaningful Use Diagnoses (Choose all that apply): None applicable Discharge Plan Admission Admit Date/Time: 12/08/23 13:05 Primary Reason for Your Visit: Debility. Attending Provider: Arsenio Mcgregor Chi Primary Care Provider: Addi Mario Instructions Additional Instructions / Restrictions: Discharge home with 01/01/2024, [facility] PT/OT/RN. Discharge Orders/Prescriptions Prescriptions: New furosemide 40 mg Tablet 40 mg PO DAILY 30 Days Qty: 30 0RF carvedilol 6.25 mg Tablet 6.25 mg PO BIDCM 30 Days Qty: 60 0RF acetaminophen 500 mg Tablet 1,000 mg PO Q6H PRN PRN (Reason: Pain Score 1-10) Qty: 0 0RF potassium chloride 10 mEq Tablet,Er Particles/Crystals 10 meq PO DAILY 30 Days Qty: 30 0RF ursodiol 250 mg Tablet 500 mg PO BIDCM Qty: 0 0RF Continued magnesium oxide [Cornejo] 500 mg tablet 1,500 mg PO QHS cyanocobalamin (vitamin B-12) 1,000 mcg capsule 1,000 mcg PO DAILY cholecalciferol (vitamin D3) 50 mcg (2,000 unit) tablet 50 mcg PO DAILY budesonide-formoterol [Symbicort] 160-4.5 mcg/actuation HFA aerosol inhaler 2 puff inhalation BID Rx Instructions: administer with spacer, rinse mouth after each use brimonidine 0.1 % drops 1 drp ophthalmic (eye) DAILY Rx Instructions: instill 1 drop into both eyes twice a day albuterol sulfate [Ventolin HFA] 90 mcg/actuation HFA aerosol inhaler 2 puff INHALATION Q4H PRN (Reason: Asthma) Qty: 8.5 2RF aspirin 81 MG tablet 81 mg PO DAILY@0800 travoprost 1 DROP bottle 1 drp EACH EYE QHS Centrum Silver 0.4 mg-300 mcg- 250 mcg tablet 1 tab PO DAILY Rocklatan 0.02-0.005 % drops 1 drp ophthalmic (eye) QHS Rx Instructions: INSTILL 1 DROP INTO EACH EYE AT BEDTIME Arthritis Compound 1 click TOPICAL DAILY PRN (Reason: Pain) Qty: 60 1RF Rx Instructions: Diclofenac 3%, Lidocaine 3%, Baclofen 2% 1 click=o.25g 1 click topical daily 60 click tube atorvastatin 20 mg tablet 20 mg PO QHS Qty: 90 3RF famotidine 20 mg tablet 20 mg PO DAILY Qty: 90 3RF finasteride 5 mg tablet 5 mg PO DAILY Qty: 90 3RF nitroglycerin 0.4 mg tablet, sublingual 0.4 mg SUBLINGUAL Q5-15M PRN (Reason: chest pain) Qty: 25 3RF ezetimibe 10 mg tablet 10 mg PO DAILY Qty: 90 3RF ferrous sulfate 325 mg (65 mg iron) tablet 325 mg PO QODAY Qty: 90 2RF Discontinued guaifenesin 1,200 mg tablet extended release 12hr 1,200 mg PO Q12H Qty: 60 6RF loratadine [Claritin] 10 mg tablet 10 mg PO DAILY furosemide 40 mg Tablet 40 mg PO DAILY Qty: 30 2RF carvedilol 6.25 mg Tablet 6.25 mg PO BID Qty: 60 2RF potassium chloride 10 mEq capsule, extended release 10 meq PO DAILY Qty: 30 2RF ciprofloxacin HCl [Cipro] 500 mg tablet 500 mg PO BID Qty: 10 0RF ursodiol 500 mg tablet See Rx Instructions .ROUTE .COMPLEX Qty: 180 3RF Dose Instruction: take 1 tablet by mouth twice a day with meals FOR LIVER DISEASE Rx Instructions: take 1 tablet by mouth twice a day with meals FOR LIVER DISEASE No Action (DME) Disability Placard See Rx Instructions .Route .MEDSUPPLY Qty: 1 0RF Rx Instructions: Expires 12/01/2026 (DME) nebulizer and compressor [Portable Nebulizer System] Device See Rx Instructions .Route Qty: 1 0RF Rx Instructions: As directed Referrals / Follow Up: Addi Mario MD [Primary Care Provider] - 01/04/24 10:00 am Disposition Disposition (needs filled in before D/C Order can be placed): Home Health Service 12/30/23 [id number] <Electronically signed by Arsenio Mcgregor MD> Cosigner Signature (if applicable): CC: Dr. Addi Mario MD; Dr. Arsenio Mcgregor MD~ Signed [facility] Work Phone: 1(566) 634-138704-03-2024 Discharge summary Author Darien Lee [facility] December 21, 2023 3:08pm Note Date/Time December 21, 2023 3:08 pm [facility] Medical Records Department [address] [place] [address] Instructions for Home/Discharge Instructions 12/21/23 1508 MR#: [id number] Acct: [id number] Name: JESSEE RUST Rep #:[id number] : 1935 88 From: Darien Lee MD PCP: Dr. Addi Mario MD Status:R [facility] Discharge Instructions Diet Discharge Diet: No restrictions Activity Discharge Activity: Return to Normal Activity and May Not Drive (while taking narcotic pain medications.) Dressing / Incision Call your doctor if you observe: Fever of 101 or Higher Follow Up Care Please Follow Up With: Darien Lee MD When: Call [phone] for an appointment Test Results: Test results from this visit will be discussed in further detail at your follow- up appointment, if applicable. Discharge Plan Admission Primary Reason for Your Visit: laser right stone Attending Provider: Darien Lee Primary Care Provider: Addi Mario Discharge Orders/Prescriptions Prescriptions: New ciprofloxacin HCl [Cipro] 500 mg tablet 500 mg PO BID Qty: 10 0RF Continued magnesium oxide [Cornejo] 500 mg tablet 1,500 mg PO QHS cyanocobalamin (vitamin B-12) 1,000 mcg capsule 1,000 mcg PO DAILY cholecalciferol (vitamin D3) 50 mcg (2,000 unit) tablet 50 mcg PO DAILY guaifenesin 1,200 mg tablet extended release 12hr 1,200 mg PO Q12H Qty: 60 6RF budesonide-formoterol [Symbicort] 160-4.5 mcg/actuation HFA aerosol inhaler 2 puff inhalation BID Rx Instructions: administer with spacer, rinse mouth after each use brimonidine 0.1 % drops 1 drp ophthalmic (eye) DAILY Rx Instructions: instill 1 drop into both eyes twice a day albuterol sulfate [Ventolin HFA] 90 mcg/actuation HFA aerosol inhaler 2 puff INHALATION Q4H PRN (Reason: Asthma) Qty: 8.5 2RF aspirin 81 MG tablet 81 mg PO DAILY@0800 travoprost 1 DROP bottle 1 drp EACH EYE QHS cetirizine 10 mg capsule 10 mg PO DAILY PRN (Reason: allergy) Centrum Silver 0.4 mg-300 mcg- 250 mcg tablet 1 tab PO DAILY Rocklatan 0.02-0.005 % drops 1 drp ophthalmic (eye) QHS Rx Instructions: INSTILL 1 DROP INTO EACH EYE AT BEDTIME furosemide 40 mg Tablet 40 mg PO DAILY Qty: 30 2RF carvedilol 6.25 mg Tablet 6.25 mg PO BID Qty: 60 2RF potassium chloride 10 mEq capsule, extended release 10 meq PO DAILY Qty: 30 2RF (DME) Disability Placard See Rx Instructions .Route .MEDSUPPLY Qty: 1 0RF Rx Instructions: Expires 12/01/2026 Arthritis Compound 1 click TOPICAL DAILY PRN (Reason: Pain) Qty: 60 1RF Rx Instructions: Diclofenac 3%, Lidocaine 3%, Baclofen 2% 1 click=o.25g 1 click topical daily 60 click tube (DME) nebulizer and compressor [Portable Nebulizer System] Device See Rx Instructions .Route Qty: 1 0RF Rx Instructions: As directed atorvastatin 20 mg tablet 20 mg PO QHS Qty: 90 3RF ursodiol 500 mg tablet See Rx Instructions .ROUTE .COMPLEX Qty: 180 3RF Dose Instruction: take 1 tablet by mouth twice a day with meals FOR LIVER DISEASE Rx Instructions: take 1 tablet by mouth twice a day with meals FOR LIVER DISEASE famotidine 20 mg tablet 20 mg PO DAILY Qty: 90 3RF finasteride 5 mg tablet 5 mg PO DAILY Qty: 90 3RF nitroglycerin 0.4 mg tablet, sublingual 0.4 mg SUBLINGUAL Q5-15M PRN (Reason: chest pain) Qty: 25 3RF ezetimibe 10 mg tablet 10 mg PO DAILY Qty: 90 3RF ferrous sulfate 325 mg (65 mg iron) tablet 325 mg PO QODAY Qty: 90 2RF Referrals / Follow Up: Addi Mario MD [Primary Care Provider] - Darien Lee MD [Med Staff - Active Staff] - Disposition Disposition (needs filled in before D/C Order can be placed): Home, Self Care 12/21/23 1508<Electronically signed by Darien Lee MD>Darien Lee MD CC: Dr. Addi Mario MD ~ Signed [facility] Work Phone: 1(416) 737-318104-03-2024 History and physical note Author Darien Lee [facility] December 21, 2023 3:08pm Note Date/Time December 21, 2023 3:08 pm [facility] Medical Records Department [address] [place] [address] History & Physical Exam 12/21/23 1508 MR#: [id number] Acct: [id number] Name: JESSEE RUST Rep #:[id number] : 1935 88 From: Darien Lee MD PCP: Dr. Addi Mario MD Status:R [facility] Location: [facility] HPI - General General Date of Service: 12/21/23 Chief Complaint: Right kidney stone HPI Narrative JESSEE RUST, is a 88 M who presents for laser of her right kidney stone and removal of stent [facility] Medical History Advanced directives, counseling/discussion Anemia Anginal equivalent Aortic stenosis Asthma Atherosclerosis of coronary artery of [place] heart without angina pectoris Atrial fibrillation BPH (benign prostatic hyperplasia) Bradycardia Cardiomyopathy Cholelithiasis without obstruction Closed vertical fracture of left patella Degenerative disc disease, cervical Dermatitis Dizziness Essential hypertension Extensor tenosynovitis of right wrist Fall Fracture of triquetrum of left wrist Fracture of triquetrum of right wrist Glaucoma History of colon polyps History of pneumonia History of skin cancer Hyperlipidemia Hypertension Hyponatremia Iron deficiency anemia Left facial swelling Liver disease Memory impairment Migraines Mitral regurgitation Multiple fractures New onset atrial fibrillation Non-smoker Non-STEMI (non-ST elevated myocardial infarction) Nonrheumatic aortic valve stenosis Obesity Orthostatic hypotension Osteoarthritis Paroxysmal atrial fibrillation Physical debility Primary biliary cirrhosis Psoriasis Restrictive airway disease Rheumatoid arthritis Rheumatoid arthritis Right foot pain Seasonal allergies Sepsis Sinus bradycardia Thrombocytopenia Ureteral calculi Vitamin D deficiency Home Medications aspirin 81 mg tablet,delayed release 81 mg PO DAILY@0800 [facility] 12/06/16 [History Last Taken 12/19/23] travoprost 0.004 % eye drops 1 drp EACH EYE QHS glaucoma 06/02/19 [History Last Taken 06/06/20] magnesium oxide (Cornejo) 1,500 mg PO QHS Supplement 08/05/20 [History Last Taken 12/01/23] cholecalciferol (vitamin D3) 50 mcg (2,000 unit) tablet 50 mcg PO DAILY Supplement 11/19/20 [History Last Taken 12/01/23] cyanocobalamin (vitamin B-12) 1,000 mcg capsule 1,000 mcg PO DAILY Supplement 11/19/20 [History Last Taken 12/01/23] Disability Placard #1 ea 12/01/21 [Rx Last Taken Unknown] Arthritis Compound 1 click topical DAILY PRN Pain #60 CLICKS 02/08/22 [Rx Last Taken Unknown] cetirizine 10 mg capsule 10 mg PO DAILY PRN allergy 10/05/22 [History Last Taken 12/01/23] albuterol sulfate 90 mcg/actuation aerosol inhaler (Ventolin HFA) 2 puff inhalation Q4H PRN Asthma #8.5 grams 04/28/23 [Rx Last Taken Unknown] nebulizer and compressor (Portable Nebulizer System) #1 ea 04/30/23 [Rx Last Taken Unknown] guaifenesin 1,200 mg tablet, extended release 12 hr 1,200 mg PO Q12H Mucus #60 tabs 06/29/23 [Rx Last Taken 12/02/23] atorvastatin 20 mg tablet 20 mg PO QHS cholesterol #90 tabs 07/07/23 [Rx Last Taken 12/01/23] ursodiol 500 mg tablet See Rx Instructions .Route .COMPLEX Liver #180 tabs 08/03/23 [Rx Last Taken 12/02/23] famotidine 20 mg tablet 20 mg PO DAILY GERD #90 tabs 08/10/23 [Rx Last Taken 12/02/23] brimonidine 0.1 % eye drops 1 drp ophthalmic (eye) DAILY Eye drops 08/15/23 [History Last Taken 12/08/23] budesonide-formoterol HFA 160 mcg-4.5 mcg/actuation aerosol inhaler (Symbicort) 2 puff inhalation BID Asthma 08/15/23 [History Last Taken 12/02/23] finasteride 5 mg tablet 5 mg PO DAILY BPH #90 tabs 08/18/23 [Rx Last Taken 12/02/23] ezetimibe 10 mg tablet 10 mg PO DAILY heart health #90 tabs 09/15/23 [Rx Last Taken 12/02/23] nitroglycerin 0.4 mg sublingual tablet 0.4 mg sublingual Q5-15M PRN chest pain #25 tabs 09/15/23 [Rx Last Taken Unknown] ferrous sulfate 325 mg (65 mg iron) tablet 325 mg PO QODAY Supplement #90 tabs 11/23/23 [Rx Last Taken 12/01/23] jlbejlhy-rvn-zytch acid 0.4 mg-lycopene 300 mcg-lutein 250 mcg tablet (Centrum Silver) 1 tab PO DAILY supplement 12/02/23 [History Last Taken 12/01/23] netarsudil 0.02 %-latanoprost 0.005 % eye drops (Conwaylatan) 1 drp ophthalmic (eye) QHS Eye drops 12/02/23 [History Last Taken 12/02/23] carvedilol 6.25 mg tablet 6.25 mg PO BID BP #60 tabs 12/08/23 [Rx Last Taken Unknown] furosemide 40 mg tablet 40 mg PO DAILY Fluid retention #30 tabs 12/08/23 [Rx Last Taken Unknown] potassium chloride 10 mEq capsule,extended release 10 meq PO DAILY supplement #30 caps 12/08/23 [Rx Last Taken Unknown] ciprofloxacin HCl 500 mg tablet (Cipro) 500 mg PO BID #10 tabs 12/21/23 [Rx Last Taken Unknown] Allergy/AdvReac Type Severity Reaction Status Date / Time metoprolol [From Lopressor] Allergy Intermediate Shortness Verified 12/21/23 14:25 of breath Penicillins Allergy Rash Verified 12/21/23 14:25 Family History Father Hypertension Grandmother Hypertension Other Alcoholism Liver disease Surgical History History of appendectomy History of cataract extraction History of colon resection History of coronary artery stent placement History of partial colectomy (~2003) Presence of stent in coronary artery Social History (Updated 12/08/23 @ 17:[address] Arsenio Mcgregor MD) household members: spouse Smoking Status: Never smoker alcohol intake: current alcohol intake frequency: holidays/special occasions only substance use type: does not use caffeine: No what type of physical activity do you participate in: weight training Vital Signs Vital Signs Vital Signs: 12/21/23 14:26 12/21/23 14:26 Temperature 97.7 F L Temperature Source Temporal Pulse Rate 54 L Respiratory Rate 16 Respiratory Pattern Normal Blood Pressure 128/69 H Blood Pressure Mean 88 Blood Pressure Source Monitor Blood Pressure Position Semi-Fowlers Blood Pressure Location Left Arm Pulse Ox 98 Oxygen Delivery Method Room Air Weight Weight: 106.141 kg Body Mass Index (BMI) 31.7 12/21/23 1508 <Electronically signed by Darien Lee MD> Cosigner Signature (if applicable): CC: Dr. Addi Mario MD; Dr. Darien Lee MD~ Signed [facility] Work Phone: 1(158) 190-946904-03-2024 Procedure [facility] 12-09-2023 Progress [facility] December 09, 2023 12:05pm Note Date/Time December 09, 2023 11: 47am [facility] Medical Records Department [address] [place] [address] Progress Note - Pharmacy 12/09/23 1135 MR#: [id number] Acct: [id number] Name: JESSEE RUST Rep #:[id number] : 1935 88 From: Salome Childers PCP: Dr. Addi Mario MD Status:A DM IN Location: TCU [facility] TCU RX Drug Regimen Review Subjective/Objective Subjective/Objective: Subjective: 88 YOM admitted to TCU 12/08/23 s/p hospitalization for encephalopathy/UTI/pneumonia. Hospitalization was complicated by NSTEMI. Patientadmitted to TCU for strengthening and rehabilitation prior to discharge home where he resides with his . Objective: Allergies metoprolol [From Lopressor] Allergy (Intermediate, Verified 10/20/23 09:49) Shortness of breath Penicillins Allergy (Verified 10/20/23 09:49) Rash Current Medications Generic Name Dose Route Start Last Admin Trade Name Freq PRN Reason Stop Dose Admin Acetaminophen 1,000 mg 12/08/23 18:01 12/09/23 03:11 Acetaminophen 500 Mg Tablet PO 1,000 mg Q6H PRN PRN Administration Pain Score 1-10 Albuterol Sulfate 2 puff 12/08/23 13:57 Albuterol Sulfate 8 Gm Inhaler (60 Puffs) INHALATION Q4H PRN Asthma Aspirin 81 mg 12/09/23 08:00 12/09/23 09:48 Aspirin E.C. 81 Mg Tablet PO 81 mg DAILY@0800 JOSE Administration Atorvastatin Calcium 20 mg 12/08/23 22:00 12/08/23 22:27 Atorvastatin Calcium 20 Mg Tablet PO 20 mg QHS JOSE Administration Bacitracin 1 applic 12/08/23 22:00 12/09/23 09:50 Bacitracin 15 Gm Tube TOPICAL 1 applic BID JOSE Administration Protocol Bisacodyl 10 mg 12/08/23 14:01 Bisacodyl 10 Mg Suppository RC DAILY PRN constipation Brimonidine Tartrate 1 ml 12/08/23 22:00 12/09/23 09:50 Brimonidine Tartrate 15 Ml Drops OPHTHALMIC 1 ml BID JOSE Administration Carvedilol 6.25 mg 12/08/23 17:00 12/09/23 09:48 Carvedilol 6.25 Mg Tablet PO 6.25 mg BIDCM JOSE Administration Protocol Cefdinir 300 mg 12/08/23 22:00 12/09/23 09:52 Cefdinir 300 Mg Capsule PO 12/13/23 10:01 300 mg BID JOSE Administration Cholecalciferol 50 mcg 12/09/23 10:00 12/09/23 09:55 Cholecalciferol (Vit D3) 25 Mcg Tablet (1,000 Units) PO 50 mcg DAILY JOSE Administration Compound Med 1 click 12/08/23 14:05 Arthritis Pain Compound 60 Click Tube TOPICAL DAILY PRN Pain Cyanocobalamin 1,000 mcg 12/09/23 10:00 12/09/23 09:55 Cyanocobalamin 500 Mcg Tablet PO 1,000 mcg DAILY JOSE Administration Ezetimibe 10 mg 12/09/23 10:00 12/09/23 09:55 Ezetimibe 10 Mg Tablet PO 10 mg DAILY [facility] Administration Famotidine 20 mg 12/09/23 10:00 12/09/23 09:52 Famotidine 20 Mg Tablet PO 20 mg DAILY [facility] Administration Ferrous Sulfate 325 mg 12/10/23 10:00 Ferrous Sulfate 325 Mg Tablet PO QODAY [facility] Finasteride 5 mg 12/09/23 10:00 12/09/23 09:53 Finasteride 5 Mg Tablet PO 5 mg DAILY [facility] Administration Furosemide 40 mg 12/09/23 10:00 12/09/23 09:51 Furosemide 40 Mg Tablet PO 40 mg DAILY [facility] Administration Protocol Guaifenesin 1,200 mg 12/08/23 22:00 12/09/23 09:52 Guaifenesin 1,200 Mg Tablet PO 1,200 mg 1000,2200 [facility] Administration Loratadine 10 mg 12/08/23 13:45 Loratadine 10 Mg Tablet PO DAILY PRN allergy Magnesium Chloride 128 mg 12/08/23 22:00 12/08/23 22:26 Magnesium Chloride 64 Mg Delay Rel.Tablet PO 128 mg QHS JOSE Administration Magnesium Citrate 300 ml 12/08/23 18:00 12/08/23 18:11 Magnesium Citrate 300 Ml PO 300 ml X1 [facility] Administration Multivitamins/Minerals 1 tablet 12/09/23 08:00 12/09/23 09:48 Multivitamins,Ther W-Minerals Tablet PO 1 tablet DAILYCM [facility] Administration Nitroglycerin 0.4 mg 12/08/23 14:04 Nitroglycerin (Inpatient Use) 0.4 Mg Tab.Subl SL Q5M PRN CARDIAC/CHEST PAIN Potassium Chloride 10 meq 12/09/23 10:00 12/09/23 09:51 Potassium Chloride Oral Tablet 10 Meq PO 10 meq DAILY JOSE Administration Fluticasone/Salmeterol 1 puff 12/08/23 22:00 12/09/23 09:50 Fluticasone/Salmeterol 232-14 Inhaler INHALATION 1 puff BID JOSE Administration Senna/Docusate Sodium 1 tablet 12/08/23 22:00 12/09/23 09:53 Senna/Docusate Sodium 1 Tablet PO 1 tablet BID JOSE Administration Sodium Chloride 10 - 40 ml 12/08/23 14:07 0.9% Saline Lock 10 Ml Syringe IV UD PRN SALINE FLUSH Tuberculin PPD 0.1 ml 12/16/23 10:00 Tuberculin,Purif.Prot.Deriv. 50 Tu/Ml Vial ID 12/16/23 10:01 X1 ONE Ursodiol 500 mg 12/08/23 17:00 12/09/23 09:49 Ursodiol 250 Mg Tablet PO 500 mg BIDCM JOSE Administration Problem List (Updated 12/08/23 @ 17:[address] Arsenio Mcgregor MD) Primary biliary cirrhosis (Acute) BPH (benign prostatic hyperplasia) (Acute) GERD (gastroesophageal reflux disease) (Acute) Allergic rhinitis (Acute) Atrial fibrillation (Acute) Right ureteral stone (Acute) Pneumonia (Acute) Encephalopathy (Acute) Debility (Acute) Non-STEMI (non-ST elevated myocardial infarction) (Acute) Urinary tract infection (Acute) Glaucoma (Chronic) Asthma (Chronic) Hyperlipidemia (Chronic) Vital Signs Temp Pulse Resp BP Pulse Ox O2 Del Method 96.9 F L 74 16 97/62 96 Room Air 12/08/23 14:01 12/08/23 18:15 12/08/23 14:01 12/08/23 18:15 12/08/23 14:01 12/09/23 10:00 Oxygen Delivery Method Room Air Weight: 100.698 kg Body Mass Index (BMI) 30.1 Sodium 138 mmol/L (136-145) 12/09/23 05:34 Potassium 3.5 mmol/L (3.5-5.1) 12/09/23 05:34 Chloride 103 mmol/L (98-107) 12/09/23 05:34 Carbon Dioxide 31.0 mmol/L (21.0-32.0) 12/09/23 05:34 Anion Gap 4 (5-15) L 12/09/23 05:34 BUN 28 mg/dL (7-18) H 12/09/23 05:34 Creatinine 1.25 mg/dL (0.70-1.30) 12/09/23 05:34 Est GFR (MDRD) Af Amer 70 mL/min (>60) 12/09/23 05:34 Est GFR (MDRD) Non-Af 58 mL/min (>60) L 12/09/23 05:34 BUN/Creatinine Ratio 22.4 RATIO (10-20) H 12/09/23 05:34 Glucose 112 mg/dL (74-106) H 12/09/23 05:34 Assessment/Plan: 1. Pain: Tylenol 1000mg PO Q6h PRN Pain 1-10, Arthritis cream topically Daily PRN. Please continue to monitor for increased/decreased S/S pain, PRN medicationusage, local redness/skin irritation with topical cream use. - The patient had used 1 dose of PRN Tylenol since admission for pain rated 1/10. Pain reassessment rated 0/10. Patient's pain appears managed at this time. 2.UTI: Cefdinir 300mg PO BID thru 12/13/23. Please continue to monitor for resolution of infection, microbiology data as clinically indicated, renal function (CrCl 52 mL/min on 12/08). 3. CAD/ HLD/CHF: Aspirin 81mg PO Daily, Lipitor 20mg PO QHS, Coreg 6.25mg PO BID, Zetia 10mg PO Daily, Lasix 40mg PO Daily, KCl 10mEq PO Daily, Nitrostat Q5mPRN. Please continue to monitor BP (last 97/62), pulse (last 74), lipid panel annually or sooner if clinically indicated (last labs WNL, from 07/2022), S/S bleeding/bruising, potassium level (last 3.5 on 12/08), I/O. 4. Asthma: Albuterol inhaler 2 puff Q4h PRN, Airduo 1 puff BID. Please continue to monitor respiratory rate (last 16/min) HR ( last74 BPM), S/S thrush with inhaled corticosteroid use. 5. GERD: Pepcid 20mg PO Daily. Please continue to monitor CrCl (last 52mL/min), S/S GERD flare-ups. may also encourage non-pharmacologic treatments to help minimize GERD exacerbations, as well. 6. Primary Biliary Cirrhosis: Ursodiol 500mg PO BIDCM. Please continue to monitor for heartburn, nausea/vomiting. 7. BPH: Finasteride 5mg PO Daily. Please continue to monitor BP, urinary retention. 8. Allergic Rhinitis/ Congestion: Loratadine 10mg PO Daily PRN, Mucinex 1200mg PO BID. Please continue to monitor PRn medication usage, medication effectiveness. 9. Cold Sore: Bacitracin Ointment topically BID. Please continue to monitor for resolution of infection. 10. Glaucoma: Brimonidine 1gtt OU BID, Netarsudil 1gtt OU QHS. Please continue to monitor for progression of disease, eye irritation/redness, follow-up with ophthalmology as clinically indicated. 11. General Wellness: Vitamin D 50mcg PO Daily, Vitamin B12 1000mcg PO Daily, Ferrous sulfate 325mg PO Q48h, Magnesium Chloride 128mg PO QHS, MVI 1 tab PO Daily. 12. Bowel: Senna/Docusate 1 tab PO BID, Dulcolax 10mg [place] Daily PRN, Magnesium Citrate 300mL PO x1. Please continue to monitor for increased/decreased constipation and/or diarrhea. - Patient had a bowel movement today per EMR review. Assessment/Plan for indications treated with psychotropic medications: The patient is not currently being maintained on psychotropic medications at time of TCU medlist review. Medical chart and medication regimen reviewed. The following medication irregularities or issues were identified: 1. Patient has not had a lipid panel done since 07/2022 per [employer] EMR review.If clinically indicated, please consider obtaining a lipid panel if clinically indicated, thank you. Date Date of Note:: 12/09/23 12/09/23 1205 <Electronically signed by Salome Childers> Salome Childers Cosigner Signature (if applicable): CC: ~ Signed [facility] Work Phone: 1(651) 163-123903-21-2024 History and physical note Author Arsenio Mcgregor [facility] December 08, 2023 6:00pm Note Date/Time December 08, 2023 5:3 9pm [facility] Medical Records Department [address] [place] [address] History & Physical Exam 12/08/23 1730 MR#: [id number] Acct: [id number] Name: JESSEE RUST Rep #:[id number] : 1935 88 From: Arsenio Mcgregor MD PCP: Dr. Addi Mario MD Status:A DM IN Location: [facility] [id number] HPI - General General Date of Admission: 12/08/23 Date of Service: 12/08/23 Chief Complaint: Here for rehabilitation. HPI Narrative 12/02/2023 JESSEE RUST, is a 88 Male who presents to [facility] ED with flank pain. Back pain, chest pain for 2 days, aching low back. Chest pain tight band around chest, NTG helpful. Tylenol helped back pain. Cough, chills, SOB. WBC 8.9, Hemoglobin 12.3, Platelet 125. Troponin 912, Lactate 2.1. covid/flu/rsv negative. UA c/w UTI, Chest X-ray left infiltrate, CT brain negative. Heparin drip, consult Cardiology for NSTEMI. Rocephin IV for UTI. Rocephin/Zithromax for pneumonia. 12/02/2023 Admit to [facility]. Hold Eliquis, continue Heparin drip, consult Cardiology, serial troponins, continue Aspirin, statin for NSTEMI. Rocephin/Zithromax IV for UTI/Pneumonia, urine culture pending. 12/03/2023 Echo mild concentric LVH. EF 45%. Stage 2 diastolic dysfunction. RVSP 60mm HG. 12/03/2023 Left groin pain, IV fluids for FRANKLIN, Creatinine 1.55, Baseline 0.7. 12/04/2023 Left upper thigh pain, but improved. Stop Heparin drip 2/2 low platelets. Urine culture growing E. Coli, continue Rocephin IV. Continue Rocephin/Zithromax IV for pneumonia. Creatinine 1.65, continue IV fluids, consider Nephrology consult. 12/05/2023 WBC improved to 12.5, Platelets 78. Creatinine improved to 1.53. 12/05/2023 Cardiac catheterization showed mild CAD, recommend medical management. NSTEMI 2/2 Type 2 demand ischemia. 12/06/2023 Creatinine 1.43. Blood cultures growing E. Coli, plan Rocephin IV for 10 days. Renal ultrasound shows right hydronephrosis. 12/06/2023 Dr. Lee consulted right UPJ 9mm stone. CT A/P showed LLL infiltrate, cholelithiasis, moderate right hydronephrosis, right 9mm UPJ stone, ileus, left retroperitoneal hematoma. 12/07/2023 No complaints. WBC 10. Rocephin IV for E. Coli UTI. 12/07/2023 Dr. Lee performed cystoscopy right retrograde pyelogram, right stent placement. 12/08/2023 Admit to TCU with debility, here for rehabilitation, strengthening, prior to discharge home with . [facility] Medical History (Updated 12/08/23 @ 17:[address] Arsenio Mcgregor MD) Advanced directives, counseling/discussion Anemia Anginal equivalent Aortic stenosis Asthma Atherosclerosis of coronary artery of [place] heart without angina pectoris Atrial fibrillation BPH (benign prostatic hyperplasia) Bradycardia Cholelithiasis without obstruction Closed vertical fracture of left patella Degenerative disc disease, cervical Dermatitis Dizziness Essential hypertension Extensor tenosynovitis of right wrist Fall Fracture of triquetrum of left wrist Fracture of triquetrum of right wrist Glaucoma History of colon polyps History of pneumonia History of skin cancer Hyperlipidemia Hypertension Hyponatremia Iron deficiency anemia Left facial swelling Liver disease Memory impairment Migraines Multiple fractures New onset atrial fibrillation Non-smoker Nonrheumatic aortic valve stenosis Obesity Orthostatic hypotension Osteoarthritis Paroxysmal atrial fibrillation Physical debility Primary biliary cirrhosis Psoriasis Restrictive airway disease Rheumatoid arthritis Rheumatoid arthritis Right foot pain Seasonal allergies Sinus bradycardia Thrombocytopenia Vitamin D deficiency Home Medications aspirin 81 mg tablet,delayed release 81 mg PO DAILY@0800 heart health 12/06/16 [History Last Taken 12/02/23] travoprost 0.004 % eye drops 1 drp EACH EYE QHS glaucoma 06/02/19 [History Last Taken 06/06/20] magnesium oxide (Cornejo) 1,500 mg PO QHS Supplement 08/05/20 [History Last Taken 12/01/23] cholecalciferol (vitamin D3) 50 mcg (2,000 unit) tablet 50 mcg PO DAILY Supplement 11/19/20 [History Last Taken 12/01/23] cyanocobalamin (vitamin B-12) 1,000 mcg capsule 1,000 mcg PO DAILY Supplement 11/19/20 [History Last Taken 12/01/23] Disability Placard #1 ea 12/01/21 [Rx Last Taken Unknown] Arthritis Compound 1 click topical DAILY PRN Pain #60 CLICKS 05/23/22 [Rx Last Taken Unknown] cetirizine 10 mg capsule 10 mg PO DAILY PRN allergy 10/05/22 [History Last Taken 12/01/23] albuterol sulfate 90 mcg/actuation aerosol inhaler (Ventolin HFA) 2 puff inhalation Q4H PRN Asthma #8.5 grams 04/28/23 [Rx Last Taken Unknown] nebulizer and compressor (Portable Nebulizer System) #1 ea 04/30/23 [Rx Last Taken Unknown] guaifenesin 1,200 mg tablet, extended release 12 hr 1,200 mg PO Q12H Mucus #60 tabs 06/29/23 [Rx Last Taken 12/02/23] atorvastatin 20 mg tablet 20 mg PO QHS cholesterol #90 tabs 07/07/23 [Rx Last Taken 12/01/23] ursodiol 500 mg tablet See Rx Instructions .Route .COMPLEX Liver #180 tabs 08/03/23 [Rx Last Taken 12/02/23] famotidine 20 mg tablet 20 mg PO DAILY GERD #90 tabs 08/10/23 [Rx Last Taken 12/02/23] brimonidine 0.1 % eye drops 1 drp ophthalmic (eye) DAILY Eye drops 08/15/23 [History Last Taken 12/08/23] budesonide-formoterol HFA 160 mcg-4.5 mcg/actuation aerosol inhaler (Symbicort) 2 puff inhalation BID Asthma 08/15/23 [History Last Taken 12/02/23] finasteride 5 mg tablet 5 mg PO DAILY BPH #90 tabs 08/18/23 [Rx Last Taken 12/02/23] ezetimibe 10 mg tablet 10 mg PO DAILY heart health #90 tabs 09/15/23 [Rx Last Taken 12/02/23] nitroglycerin 0.4 mg sublingual tablet 0.4 mg sublingual Q5-15M PRN chest pain #25 tabs 09/15/23 [Rx Last Taken Unknown] ferrous sulfate 325 mg (65 mg iron) tablet 325 mg PO QODAY Supplement #90 tabs 11/23/23 [Rx Last Taken 12/01/23] wbdhghuk-izl-vpsfa acid 0.4 mg-lycopene 300 mcg-lutein 250 mcg tablet (Centrum Silver) 1 tab PO DAILY supplement 12/02/23 [History Last Taken 12/01/23] netarsudil 0.02 %-latanoprost 0.005 % eye drops (Rocklatan) 1 drp ophthalmic (eye) QHS Eye drops 12/02/23 [History Last Taken 12/02/23] carvedilol 6.25 mg tablet 6.25 mg PO BID BP #60 tabs 12/08/23 [Rx Last Taken Unknown] cefdinir 300 mg capsule 300 mg PO BID Antibiotic #10 caps 12/08/23 [Rx Last Taken Unknown] furosemide 40 mg tablet 40 mg PO DAILY Fluid retention #30 tabs 12/08/23 [Rx Last Taken Unknown] potassium chloride 10 mEq capsule,extended release 10 meq PO DAILY supplement #30 caps 12/08/23 [Rx Last Taken Unknown] Allergy/AdvReac Type Severity Reaction Status Date / Time metoprolol [From Lopressor] Allergy Intermediate Shortness Verified 10/20/23 09:49 of breath Penicillins Allergy Rash Verified 10/20/23 09:49 Family History Father Hypertension Grandmother Hypertension Other Alcoholism Liver disease Surgical History History of appendectomy History of cataract extraction History of colon resection History of coronary artery stent placement History of partial colectomy (~2003) Presence of stent in coronary artery Social History (Updated 12/08/23 @ 17:[address] Arsenio Mcgregor MD) household members: spouse Smoking Status: Never smoker alcohol intake: current alcohol intake frequency: holidays/special occasions only substance use type: does not use caffeine: No what type of physical activity do you participate in: weight training ROS Constitutional Constitutional: Denies chills, fever(s) or weight gain ENT HEENT: Denies headache(s), nasal congestion or nasal discharge Cardiovascular Cardiovascular: Denies chest pain or palpitations Respiratory/Chest Respiratory/Chest: Denies cough, excessive phlegm production or shortness of breath with exertion Gastrointestinal Gastrointestinal: Denies abdominal pain, nausea or vomiting Genitourinary Genitourinary: Denies dysuria Musculoskeletal Musculoskeletal: Denies joint pain or joint swelling Integumentary Integumentary: Denies rash or wounds Neurologic Neurologic: Denies focal weakness, numbness or tingling Psychiatric Psychiatric: Denies anxiety, auditory hallucinations, depression, homicidal ideation or suicidal ideation Vital Signs Vital Signs Vital Signs: 12/08/23 14:01 12/08/23 15:50 Temperature 96.9 F L Temperature Source Temporal Pulse Rate 60 Pulse Rhythm Irregular Pulse Strength Normal (2+) Respiratory Rate 16 Respiratory Effort Normal Non-Labored Respiratory Depth Normal Respiratory Pattern Normal Blood Pressure 105/57 L Blood Pressure Mean 73 Blood Pressure Source Monitor Blood Pressure Position Sitting Blood Pressure Location Right Arm Pulse Ox 96 Oxygen Delivery Method Room Air Room Air Weight Weight: 100.698 kg Body Mass Index (BMI) 30.1 Physical Exam Const alert General Appearance: cooperative HEENT normocephalic Eyes PERRL and EOMs intact bilaterally Neck supple, no JVD and no carotid bruits Resp normal respiratory effort, normal air movement and clear to auscultation bilaterally Cardio regular rate and regular rhythm GI normal to inspection, nondistended, normoactive bowel sounds, non-tender and non-distended Extremity normal capillary refill General Extremity: Negative for edema Skin no rashes or lesions noted General Skin Exam: no breakdown Psych affect normal Appearance: appropriate Assessment & Plan Assessment/Plan (1) Debility: (2) Non-STEMI (non-ST elevated myocardial infarction): (3) Encephalopathy: (4) Urinary tract infection: (5) Pneumonia: (6) Right ureteral stone: (7) Atrial fibrillation: (8) Glaucoma: (9) Allergic rhinitis: (10) Asthma: QUALIFIERS: Asthma complication type: uncomplicated Asthma persistence: unspecified Asthma severity: unspecified severity Qualified Code(s): J45.909 - Unspecified asthma, uncomplicated (11) Hyperlipidemia: QUALIFIERS: Hyperlipidemia type: unspecified Qualified Code(s): E78.5 - Hyperlipidemia, unspecified (12) GERD (gastroesophageal reflux disease): (13) BPH (benign prostatic hyperplasia): (14) Primary biliary cirrhosis: (15) CAD (coronary artery disease): PLAN: Plan 88 year old male with below past medical history hospitalized for UTI, pneumonia, encephalopathy, complicated by NSTEMI, FRANKLIN, right ureteral stone, s/pright ureteral stent, admitted to TCU with debility, here for rehabilitation, strengthening, prior to discharge home with . * Debility - PT/OT. * Pain - Tylenol 1000mg q6 prn pain (1-10), Arthritis cream topical daily prn. * Bowel - senna/colace 1 tablet bid, Magnesium citrate 300ml po x 1 dose, Dulcolax 10mg pr daily prn. * Adult immunization - Administer pneumonia vaccine, covid vaccine, flu vaccine as appropriate. * DVT prophylaxis - Monitor. * Asthma - Fluticasone/salmeterol 232-14 1 puff bid, Albuterol 2 puffs q4h prn. * Coronary artery disease - Carvedilol 6.25mg bidcm, Aspirin 81mg daily, NTG 0.4mg sc q5m prn. * Hyperlipidemia - Atorvastatin 20mg qhs. * Cold sores lips - Bacitracin ointment topical bid. * Glaucoma - Brimonidine 1gtt ou bid, Latanoprost 0.005% 1gtt ou qhs, Rocklatan 1gtt ou qhs. * E. Coli UTI - Cefdinir 300mg bid thru 12/13/2023. * Vitamin D deficiency - D3 50mcg daily. * Vitamin B12 deficiency - B12 1000mcg daily. * Hyperlipidemia - Zetia 10mg daily. * GERD - Famotidine 20mg daily. * Iron deficiency anemia - Ferrous sulfate 325mg every other day. * BPH - Finasteride 5mg daily. * Edema - Furosemide 40mg daily. * Congestion - Mucinex 1200mg bid. * Allergic rhinitis - Loratadine 10mg daily prn. * Hypomagnesemia - Magnesium chloride 128mg qhs. * Nutrition - MVI daily. * Hypokalemia - KCL 10meq daily. * Primary biliary cirrhosis - Ursodiol 500mg bidcm. 12/08/23 1800 <Electronically signed by Arsenio Mcgregor MD> Cosigner Signature (if applicable): CC: Dr. Addi Mario MD; Dr. Arsenio Mcgregor MD~ Signed [facility] Work Phone: 1(241) 932-326103-20-2024 Progress note Author Klaudia [facility] December 07, 2023 4:28pm Note Date/Time December 07, 2023 12: 40pm [facility] Medical Records Department [address] [place] [id number] Progress Note 12/07/23 1238 MR#: [id number] Acct: [id number] Name: JESSEE RUST Rep #:[id number] : 1935 88 From: Klaudia Gonzales MD PCP: Dr. Addi Mario MD Status:A DM IN Location: [place] [address] Subjective Subjective Patient seen and examined. He had no active complaints. He denied any abdominal pain, nausea, vomiting, fever or chills. Review of systems is otherwise negative. CT of the abdomen and pelvis done yesterday o/a of persistently elevated Cr showed a right obstructive kidney stone. Objective Data Objective Data Vital Signs: Vital Signs Temp Pulse Resp BP Pulse Ox O2 Del Method O2 Flow Rate 98.2 F 77 16 134/83 H 99 Room Air 3 12/07/23 08:10 12/07/23 08:10 12/07/23 08:10 12/07/23 08:10 12/07/23 08:10 12/07/23 08:10 12/05/23 20:07 Oxygen Flow Rate (L/min) 3 Oxygen Delivery Method Room Air Weight: 230 lb 2.601 oz Body Mass Index (BMI) 31.1 Intake & Output: Intake and Output for Last 24 Hours 12/05/23 12/06/23 12/07/23 23:59 23:59 23:59 Intake Total 2675.84 / 2675.84 2405 / 2405 100 / 100 Output Total 1100 / 1475 2225 / 2225 850 / 850 Balance 1575.84 / 1200.84 180 / 180 -750 / -750 Lab / Micro Data 12/07/23 05:45 12/07/23 05:45 Labs: Laboratory Results - last 24 hr 12/03/23 06:15: Diff Path Review Reviewed 12/06/23 20:38: Hgb 9.7 L 12/07/23 05:45: WBC 9.2, RBC 3.14 L, Hgb 9.5 L, Hct 29.4 L, MCV 93.6, MCH 30.3, MCHC 32.3, RDW Std Deviation 52.3 H, RDW Coeff of Angelia 15.3 H, Plt Count 116 L, MPV 11.5, Immature Gran % (Auto) 0.400, Neut % (Auto) 60.6, Lymph % (Auto) 18.8 L, Hooker % (Auto) 17.2 H, Eos % (Auto) 2.7, Baso % (Auto) 0.3, Absolute Neuts (auto) 5.5, Absolute Lymphs (auto) 1.72, Nucleated RBC % 0, Differential CommentSCANNED, Sodium 138, Potassium 3.7, Chloride 106, Carbon Dioxide 25.0, Anion Gap7, BUN 25 H, Creatinine 1.55 H, Estim Creat Clear Calc 42.74, Est GFR (MDRD) Af Amer 55 L, Est GFR (MDRD) Non-Af 45 L, BUN/Creatinine Ratio 16.1, Glucose 89, Calcium 8.6, Magnesium 2.0 Micro: Microbiology 12/02/23 13:30 Blood Culture (Wb) - Anticubital Right Blood Culture - Final 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 12/02/23 13:20 Blood Culture (Wb) - Anticubital Right Blood Culture - Final Escherichia coli 12/02/23 14:36 Urine, Clean Catch Urine Culture - Final Escherichia coli 12/02/23 13:30 Mucosa - Nose SARS-CoV-2, Influenza & RSV (PCR) - Final Radiography Diagnostic Testing: Radiology Impression Renal Ultrasound 12/06/23 11:58 IMPRESSION: Moderate right hydronephrosis. CT scan of the abdomen pelvis might be further value to rule out distal ureteral obstruction or stone. Electronically Signed: Pepito Cantor MD at 15:00 EDT , Abdomen/Pelvis CT 12/06/23 15:29 IMPRESSION: Left lower lobe infiltrate and effusions. Cholelithiasis. Moderate right hydronephrosis due to a 9 mm UPJ stone. Ileus. Possible left pelvic sidewall retroperitoneal hematoma. Other incidental findings as above. Electronically Signed: Arian Stokes MD at 19:20 EDT , ADDENDUM: 12/06/232008 IMPRESSION: Left lower lobe infiltrate and effusions. Cholelithiasis. Moderate right hydronephrosis due to a 9 mm UPJ stone. Ileus. Possible left pelvic sidewall retroperitoneal hematoma. Other incidental findings as above. N.B. : The above Results were Read Back by Arian Stokes MD to Sally Zelaya MD, and understanding confirmed on 12/06/2023 20:02:30 (ET). Electronically Signed: Arian Stokes MD at 19:20 EDT , Physical Exam Const alert, oriented x3, no apparent distress and well nourished Constitutional Narrative: General Appearance: cooperative and well developed HEENT normocephalic, head/scalp atraumatic, moist oral mucous membranes and oropharynxnormal Eyes PERRL and EOMs intact bilaterally Neck no lymphadenopathy Lymph Lymphatic: no lymphadenopathy noted and no lymphedema noted Resp Resp Narrative: diminished breath sounds basally, few crackles. on room air. Cardio regular rate, regular rhythm, S1 normal heart sound, S2 normal heart sound and no murmurs GI normal to inspection, nondistended, normoactive bowel sounds, soft to palpation,non-tender and non-distended Extremity normal capillary refill, no clubbing, cyanosis or edema and no calf tenderness Extremity Narrative: mild tenderness in left groin area General Extremity: no tenderness to palpation of joints or extremities Skin General Skin Exam: no breakdown Neuro CN's II-XII intact bilaterally, no focal motor deficits, no sensory deficits noted and deep tendon reflexes 2+ bilaterally Motor Exam: strength 5/5 throughout and general weakness Psych thought process normal, cooperative and affect normal Appearance: appropriate Assessment & Plan Assessment/Plan (1) Acute kidney injury: (2) Paroxysmal atrial fibrillation: (3) Sepsis: (4) Non-STEMI (non-ST elevated myocardial infarction): PLAN: Plan #Non-stemi * cardiology on board. * troponins elevated * on aspirin, lipitor and zetia. 2D echo showed mild concentric left ventricular hypertrophy with posterior hypokinesis and EF of 45% with stage II diastolic dysfunction and severely enlarged left atrium. 2+ mitral valve and tricuspid valve insufficiency and right ventricular stock pressure of 60 mmHg. Mild aortic stenosis. * Had cardiac cath which showed mild cardiac disease with plan for medical management. On aspirin and statin. Also on Eliquis. On carvedilol. * * #Acute encephalopathy due to UTI and probable pneumonia * on IV rocephin and azithromycin * Urine cultures grew E. coli * Blood culture growing E. coli. Currently on IV ceftriaxone. White cell count trended down to 10. Plan is for a total 10-day course of treatment. * #Right obstructive infected kidney stone * Cr remains elevated and is 1.53 today * Renal USG done showed right obstructive kidney stone * CT abdomen and pelvis showed moderate right hydronephrosis due 9mm ureteropelvic junction stone * urology consulted; for cystoscopy and stent insertion today * #Thrombocytopenia * has chronic thrombocytopenia * is improving, up to 116 today. * #Paroxysmal A-fib: On carvedilol. Has been in sinus rhythm since admission. Eliquis on hold due to retroperitoneal hematoma #FRANKLIN: * Creatinine today is 1.55. Creatinine is not improving. * In light of E. coli bacteremia, this was discussed with ID. Renal ultrasound obtained. This discussion showed right-sided hydronephrosis * CT abdomen/pelvis as above * will likely improve once she has cystoscopy. * #Possible left pelvic sidewall retroperitoneal hematoma * eliquis held. Hb is stable. 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 Charges/Coding Visit Charges Inpatient E&M: 46160 Subs Hosp L2 12/07/23 1651 <Electronically signed by Klaudia Gonzales MD> Klaudia Gonzales MD Cosigner Signature (if applicable): CC: ~ Signed [facility] Work Phone: 1(771) 315-858903-20-2024 Procedure [facility] 12-07-2023 Progress note Author Vanessa Simmons [facility] December 07, 2023 11:50am Note Date/Time December 07, 2023 11: 50am [facility] Medical Records Department [address] [place] [address] [place] [address] Progress Note 12/07/23 1150 MR#: [id number] Acct: [id number] Name: JESSEE RUST Rep #:[id number] : 1935 88 From: Vanessa Simmons MD PCP: Dr. Addi Mario MD Status:A DM IN Location: [place] [address] Progress Note Notified that the patient had a run of nonsustained ventricular tachycardia. Patient asymptomatic. Check electrolytes and magnesium. Increase carvedilol to 6.25 mg twice daily. 12/07/23 1150 <Electronically signed by Vanessa Simmons MD> Vanessa Simmons MD Cosigner Signature (if applicable): CC: ~ Signed [facility] Work Phone: [phone]) 444-253203-19-2024 Consult note Author Darien Lee [facility] December 06, 2023 9:22pm Note Date/Time December 06, 2023 9:[address] [facility] Medical Records Department [address] [place] [address] Consultation - Urology 12/06/232117 MR#: [id number] Acct: [id number] Name: JESSEE RUST Rep #:[id number] : 1935 88 From: Darien Lee MD PCP: Dr. Addi Mario MD Status:A DM IN Location: [place] [address] Assessment & Plan Assessment/Plan (1) Ureteral calculi: PLAN: Right ureteral calculi. NPO plan for cysto right stent tomorrow. HPI Consult Data Date of Consult: 12/06/23 HPI Narrative Reason for Consultation: Right kidney stone HPI Narrative: JESSEE RUST is a 88 M who presents to hospital with heart problems, had cardiac cath done, Ct scan post demonstrates a 9mm Right UPJ stone with obstruction. pt. is o/w stable. [facility] Medical History Advanced directives, counseling/discussion Anemia Anginal equivalent Aortic stenosis Asthma Atherosclerosis of coronary artery of [place] heart without angina pectoris Atrial fibrillation BPH (benign prostatic hyperplasia) Bradycardia Cholelithiasis without obstruction Closed vertical fracture of left patella Degenerative disc disease, cervical Dermatitis Dizziness Essential hypertension Extensor tenosynovitis of right wrist Fall Fracture of triquetrum of left wrist Fracture of triquetrum of right wrist Glaucoma History of colon polyps History of pneumonia History of skin cancer Hyperlipidemia Hypertension Hyponatremia Iron deficiency anemia Left facial swelling Liver disease Memory impairment Migraines Multiple fractures New onset atrial fibrillation Non-smoker Nonrheumatic aortic valve stenosis Obesity Orthostatic hypotension Osteoarthritis Paroxysmal atrial fibrillation Physical debility Primary biliary cirrhosis Psoriasis Restrictive airway disease Rheumatoid arthritis Rheumatoid arthritis Right foot pain Seasonal allergies Sinus bradycardia Thrombocytopenia Vitamin D deficiency Home Medications aspirin 81 mg tablet,delayed release 81 mg PO DAILY@0800 heart health 12/06/16 [History Last Taken 12/02/23] travoprost 0.004 % eye drops 1 drp EACH EYE QHS glaucoma 06/02/19 [History Last Taken 06/06/20] magnesium oxide (Cornejo) 1,500 mg PO QHS 08/05/20 [History Last Taken 12/01/23] cholecalciferol (vitamin D3) 50 mcg (2,000 unit) tablet 50 mcg PO DAILY 11/19/20[History Last Taken 12/01/23] cyanocobalamin (vitamin B-12) 1,000 mcg capsule 1,000 mcg PO DAILY 11/19/20 [History Last Taken 12/01/23] Disability Placard #1 ea 12/01/21 [Rx Last Taken Unknown] Arthritis Compound 1 click topical DAILY PRN Pain #60 CLICKS 02/08/22 [Rx Last Taken Unknown] cetirizine 10 mg capsule 10 mg PO DAILY PRN allergy 10/05/22 [History Last Taken 12/01/23] apixaban 5 mg tablet (Eliquis) 5 mg PO BID #60 tabs 12/08/22 [Rx Last Taken 12/02/23] albuterol sulfate 90 mcg/actuation aerosol inhaler (Ventolin HFA) 2 puff inhalation Q4H PRN Asthma #8.5 grams 04/28/23 [Rx Last Taken Unknown] nebulizer and compressor (Portable Nebulizer System) #1 ea 04/30/23 [Rx Last Taken Unknown] guaifenesin 1,200 mg tablet, extended release 12 hr 1,200 mg PO Q12H #60 tabs 06/29/23 [Rx Last Taken 12/02/23] atorvastatin 20 mg tablet 20 mg PO QHS cholesterol #90 tabs 07/07/23 [Rx Last Taken 12/01/23] ursodiol 500 mg tablet See Rx Instructions .Route .COMPLEX #180 tabs 08/03/23 [Rx Last Taken 12/02/23] famotidine 20 mg tablet 20 mg PO DAILY #90 tabs 08/10/23 [Rx Last Taken 12/02/23] brimonidine 0.1 % eye drops 1 drp ophthalmic (eye) DAILY 08/15/23 [History Last Taken 12/02/23] budesonide-formoterol HFA 160 mcg-4.5 mcg/actuation aerosol inhaler (Symbicort) 2 puff inhalation BID 08/15/23 [History Last Taken 12/02/23] finasteride 5 mg tablet 5 mg PO DAILY #90 tabs 08/18/23 [Rx Last Taken 12/02/23] ezetimibe 10 mg tablet 10 mg PO DAILY heart health #90 tabs 09/15/23 [Rx Last Taken 12/02/23] nitroglycerin 0.4 mg sublingual tablet 0.4 mg sublingual Q5-15M PRN chest pain #25 tabs 09/15/23 [Rx Last Taken Unknown] ferrous sulfate 325 mg (65 mg iron) tablet 325 mg PO QODAY #90 tabs 11/23/23 [Rx Last Taken 12/01/23] yvcovwdw-vma-vyunz acid 0.4 mg-lycopene 300 mcg-lutein 250 mcg tablet (Centrum Silver) 1 tab PO DAILY 12/02/23 [History Last Taken 12/01/23] netarsudil 0.02 %-latanoprost 0.005 % eye drops (Rocklatan) 1 drp ophthalmic (eye) QHS 12/02/23 [History Last Taken 12/02/23] Allergy/AdvReac Type Severity Reaction Status Date / Time metoprolol [From Lopressor] Allergy Intermediate Shortness Verified 10/20/23 09:49 of breath Penicillins Allergy Rash Verified 10/20/23 09:49 Family History Father Hypertension Grandmother Hypertension Other Alcoholism Liver disease Surgical History History of appendectomy History of cataract extraction History of colon resection History of coronary artery stent placement History of partial colectomy (~2003) Presence of stent in coronary artery Social History Smoking Status: Never smoker alcohol intake: current alcohol intake frequency: holidays/special occasions only substance use type: does not use caffeine: No what type of physical activity do you participate in: weight training Physical Exam Const alert and oriented x3 General Appearance: cooperative HEENT normocephalic, head/scalp atraumatic, EAC's normal and TM's normal bilaterally Eyes PERRL and EOMs intact bilaterally Pupil: sluggish Neck no lymphadenopathy, supple and no JVD General: trachea midline Lymph Lymphatic: no lymphadenopathy noted, lymphedema and lymphadenopathy Resp normal respiratory effort, normal air movement and clear to auscultation bilaterally Cardio regular rate, regular rhythm and peripheral pulses 2+ throughout GI soft to palpation, non-tender and non-distended Extremity normal capillary refill and no clubbing, cyanosis or edema General Extremity: no tenderness to palpation of joints or extremities Skin no rashes or lesions noted General Skin Exam: turgor normal Lesions: no lesions Rashes: no rashes Neuro CN's II-XII intact bilaterally Speech: speech normal Motor Exam: strength 5/5 throughout; Negative for general weakness Psych thought process normal, cooperative and affect normal Appearance: appropriate Medical Records Data Attestation: I reviewed the patient's medical records Lab / Micro Data 12/06/23 20:38 12/06/23 06:05 Labs: Laboratory Results - last 24 hr 12/03/23 06:15: Diff Path Review Reviewed 12/06/23 06:05: WBC 10.4, RBC 3.22 L, Hgb 9.7 L, Hct 30.3 L, MCV 94.1 H, MCH 30.1, MCHC 32.0, RDW Std Deviation 54.4 H, RDW Coeff of Angelia 15.7 H, Plt Count 95L, MPV 11.5, Immature Gran % (Auto) 0.600, Neut % (Auto) 68.0, Lymph % (Auto) 16.5 L, Hooker % (Auto) 12.5 H, Eos % (Auto) 2.1, Baso % (Auto) 0.3, Absolute Neuts (auto) 7.1, Absolute Lymphs (auto) 1.72, Nucleated RBC % 0, Sodium 139, Potassium 4.2, Chloride 109 H, Carbon Dioxide 26.0, Anion Gap 4 L, BUN 25 H, Creatinine 1.43 H, Estim Creat Clear Calc 46.51, Est GFR (MDRD) Af Amer 60, Est GFR (MDRD) Non-Af 50 L, BUN/Creatinine Ratio 17.5, Glucose 96, Calcium 8.7 12/06/23 20:38: Hgb 9.7 L Imaging Radiology Impression Renal Ultrasound 12/06/23 11:58 IMPRESSION: Moderate right hydronephrosis. CT scan of the abdomen pelvis might be further value to rule out distal ureteral obstruction or stone. Electronically Signed: Pepito Cantor MD at 15:00 EDT , Abdomen/Pelvis CT 12/06/23 15:29 IMPRESSION: Left lower lobe infiltrate and effusions. Cholelithiasis. Moderate right hydronephrosis due to a 9 mm UPJ stone. Ileus. Possible left pelvic sidewall retroperitoneal hematoma. Other incidental findings as above. Electronically Signed: Arian Stokes MD at 19:20 EDT , ADDENDUM: 12/06/232008 IMPRESSION: Left lower lobe infiltrate and effusions. Cholelithiasis. Moderate right hydronephrosis due to a 9 mm UPJ stone. Ileus. Possible left pelvic sidewall retroperitoneal hematoma. Other incidental findings as above. N.B. : The above Results were Read Back by Arian Stokes MD to Sally Zelaya MD, and understanding confirmed on 12/06/2023 20:02:30 (ET). Electronically Signed: Arian Stokes MD at 19:20 EDT , 12/06/232121 <Electronically signed by Darien Lee MD> Cosigner Signature (if applicable): CC: Dr. Vanessa Simmons MD; Dr. Addi Mario MD; Dr. Darien Lee MD;Dr. Miguelito Laguna MD~ Signed [facility] Work Phone: [phone]) [phone] Progress note Author Sally Zelaya [facility] December 06, 2023 8:07pm Note Date/Time December 06, 2023 8:[address] [facility] Medical Records Department [address] [place] [address] Progress Note - Hospitalist 12/06/232005 MR#: [id number] Acct: [id number] Name: JESSEE RUST Rep #:[id number] : 1935 88 From: Sally Zelaya MD PCP: Dr. Addi Mario MD Status:A DM IN Location: [place] [address] A/P w/ left lower lobe infiltrate and effusions, cholelithiasis, moderate right hydronephrosis due to a 9 mm UPJ stone, ileus, possible small left pelvic sidewall retroperitoneal hematoma. Reviewed imaging with radiology and they note that if there is a small hematoma is very small and subtle but cannot absolutely rule it out and they recommended potentially reimaging at a later date. Given these findings will request consultation with urology. Discussed and reviewed these imaging findings with cardiology as patient just had a cardiac catheterization today and they are amenable to holding his aspirin and Eliquis therapy. Patient is already on antibiotic therapy at this time in regards to left lower lobe infiltrate. Patient CBC will be trended and patient may requirea future CT imaging to reassess that region again. If hemoglobin drops or any concerns arise low threshold to involve customer service sales consultant. 12/06/232006 <Electronically signed by Sally Zelaya MD> Cosigner Signature (if applicable): CC: ~ Signed [facility] Work Phone: [phone]) 934-684103-19-2024 Progress note Author Klaudia Janet [facility] December 06, 2023 3:37pm Note Date/Time December 06, 2023 3:[address] [facility] Medical Records Department [address] [place] [address] Progress Note 12/06/23 1529 MR#: [id number] Acct: [id number] Name: JESSEE RUST Rep #:[id number] : 1935 88 From: Klaudia Gonzales MD PCP: Dr. Adid Mario MD Status:A DM IN Location: [place] [address] Subjective Subjective Patient seen and examined. He felt well and had no active complaints. Review of systems otherwise negative. Creatinine is 1.43 and is still not trended downwards. Blood cultures growing E. coli. His white cell count has trended down. He had cardiac cath yesterday which showed mild CAD with recommendation for medical management. Objective Data Objective Data Vital Signs: Vital Signs Temp Pulse Resp BP Pulse Ox O2 Del Method O2 Flow Rate 97.3 F L 78 18 140/68 H 98 Room Air 3 12/06/23 09:30 12/06/23 13:43 12/06/23 13:43 12/06/23 09:30 12/06/23 09:30 12/06/23 09:30 12/05/23 20:07 Oxygen Flow Rate (L/min) 3 Oxygen Delivery Method Room Air Weight: 232 lb 2.348 oz Body Mass Index (BMI) 31.4 Intake & Output: Intake and Output for Last 24 Hours 12/04/23 12/05/23 12/06/23 23:59 23:59 23:59 Intake Total 2858.33 / 2858.33 2675.84 / 2675.84 1155 / 1155 Output Total 3125 / 3125 1100 / 1475 925 / 925 Balance -266.67 / -266.67 1575.84 / 1200.84 230 / 230 Lab / Micro Data 12/06/23 06:05 12/06/23 06:05 Labs: Laboratory Results - last 24 hr 12/03/23 06:15: Diff Path Review Reviewed 12/06/23 06:05: WBC 10.4, RBC 3.22 L, Hgb 9.7 L, Hct 30.3 L, MCV 94.1 H, MCH 30.1, MCHC 32.0, RDW Std Deviation 54.4 H, RDW Coeff of Angelia 15.7 H, Plt Count 95L, MPV 11.5, Immature Gran % (Auto) 0.600, Neut % (Auto) 68.0, Lymph % (Auto) 16.5 L, Hooker % (Auto) 12.5 H, Eos % (Auto) 2.1, Baso % (Auto) 0.3, Absolute Neuts (auto) 7.1, Absolute Lymphs (auto) 1.72, Nucleated RBC % 0, Sodium 139, Potassium 4.2, Chloride 109 H, Carbon Dioxide 26.0, Anion Gap 4 L, BUN 25 H, Creatinine 1.43 H, Estim Creat Clear Calc 46.51, Est GFR (MDRD) Af Amer 60, Est GFR (MDRD) Non-Af 50 L, BUN/Creatinine Ratio 17.5, Glucose 96, Calcium 8.7 Micro: Microbiology 12/02/23 13:30 Blood Culture (Wb) - Anticubital Right Blood Culture - Final 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 12/02/23 13:20 Blood Culture (Wb) - Anticubital Right Blood Culture - Final Escherichia coli 12/02/23 14:36 Urine, Clean Catch Urine Culture - Final Escherichia coli 12/02/23 13:30 Mucosa - Nose SARS-CoV-2, Influenza & RSV (PCR) - Final Radiography Diagnostic Testing: Radiology Impression Renal Ultrasound 12/06/23 11:58 IMPRESSION: Moderate right hydronephrosis. CT scan of the abdomen pelvis might be further value to rule out distal ureteral obstruction or stone. Electronically Signed: Pepito Cantor MD at 15:00 EDT , Physical Exam Const alert, oriented x3, no apparent distress and well nourished Constitutional Narrative: General Appearance: cooperative and well developed HEENT normocephalic, head/scalp atraumatic, moist oral mucous membranes and oropharynxnormal Eyes PERRL and EOMs intact bilaterally Neck no lymphadenopathy Lymph Lymphatic: no lymphadenopathy noted and no lymphedema noted Resp Resp Narrative: diminished breath sounds basally, few crackles. on room air. Cardio regular rate, regular rhythm, S1 normal heart sound, S2 normal heart sound and no murmurs GI normal to inspection, nondistended, normoactive bowel sounds, soft to palpation,non-tender and non-distended Extremity normal capillary refill, no clubbing, cyanosis or edema and no calf tenderness General Extremity: no tenderness to palpation of joints or extremities Skin General Skin Exam: no breakdown Neuro CN's II-XII intact bilaterally, no focal motor deficits, no sensory deficits noted and deep tendon reflexes 2+ bilaterally Motor Exam: strength 5/5 throughout and general weakness Psych thought process normal, cooperative and affect normal Appearance: appropriate Assessment & Plan Assessment/Plan (1) Acute kidney injury: (2) Paroxysmal atrial fibrillation: (3) Sepsis: (4) Non-STEMI (non-ST elevated myocardial infarction): PLAN: Plan #Nonstemi * cardiology on board. * troponins elevated * on aspirin, lipitor and zetia. 2D echo showed mild concentric left ventricular hypertrophy with posterior hypokinesis and EF of 45% with stage II diastolic dysfunction and severely enlarged left atrium. 2+ mitral valve and tricuspid valve insufficiency and right ventricular stock pressure of 60 mmHg. Mild aortic stenosis. * heparin drip discontinued due to thrombocytopenia * Had cardiac cath which showed mild cardiac disease with plan for medical management. On aspirin and statin. Also on Eliquis. On carvedilol. * * #Acute encephalopathy due to UTI and probable pneumonia * on IV rocephin and azithromycin * get urine cultures * Urine cultures grew E. coli * Blood culture growing E. coli. Currently on IV ceftriaxone. White cell count trended down to 10. Plan is for a total 10-day course of treatment. * #Thrombocytopenia * has chronic thrombocytopenia * Platelets are trending up in a 95 today. Was 78 yesterday. Will continue monitoring. * #Paroxysmal A-fib: On carvedilol. Has been in sinus rhythm since admission. OnEliquis. #FRANKLIN: * Creatinine today is 21.43. Creatinine is not improving. * In light of E. coli bacteremia, this was discussed with ID. Renal ultrasound obtained. This discussion showed right-sided hydronephrosis * Will get a CT of the abdomen and pelvis without contrast to see if there is a kidney stone that is causing the obstruction. 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 Disposition: For DC to TCU once he is medically stable. Charges/Coding Visit Charges Inpatient E&M: 88002 Subs Hosp L2 12/06/23 1537 <Electronically signed by Klaudia Gonzales MD> Klaudia Gonzales MD Cosigner Signature (if applicable): CC: ~ Signed [facility] Work Phone: [phone]) 394-640503-19-2024 Progress note Author Vanessa Simmons [facility] December 06, 2023 12:18pm Note Date/Time December 06, 2023 12: 18pm [facility] Medical Records Department [address] [place] [address] Progress Note - Cardiology 12/06/23 1213 MR#: [id number] Acct: [id number] Name: JESSEE RUST Rep #:[id number] : 1935 88 From: Vanessa Simmons MD PCP: Dr. Addi Mario MD Status:A DM IN Location: [place] [address] Subjective Subjective Denies any complaints today. Sitting up in chair. Objective Data Vital Signs: Vital Signs Temp Pulse Resp BP Pulse Ox O2 Del Method O2 Flow Rate 97.3 F L 92 18 140/68 H 98 Room Air 3 12/06/23 09:30 12/06/23 09:30 12/06/23 09:30 12/06/23 09:30 12/06/23 09:30 12/06/23 09:30 12/05/23 20:07 Oxygen Flow Rate (L/min) 3 Oxygen Delivery Method Room Air Weight: 232 lb 2.348 oz Body Mass Index (BMI) 31.4 Intake & Output: Intake and Output for Last 24 Hours 12/04/23 12/05/23 12/06/23 23:59 23:59 23:59 Intake Total 2858.33 / 2858.33 2675.84 / 2675.84 100 / 100 Output Total 3125 / 3125 1100 / 1475 925 / 925 Balance -266.67 / -266.67 1575.84 / 1200.84 -825 / -825 Lab / Micro Data 12/06/23 06:05 12/06/23 06:05 Labs: Laboratory Results - last 24 hr 12/06/23 06:05: WBC 10.4, RBC 3.22 L, Hgb 9.7 L, Hct 30.3 L, MCV 94.1 H, MCH 30.1, MCHC 32.0, RDW Std Deviation 54.4 H, RDW Coeff of Angelia 15.7 H, Plt Count 95L, MPV 11.5, Immature Gran % (Auto) 0.600, Neut % (Auto) 68.0, Lymph % (Auto) 16.5 L, Hooker % (Auto) 12.5 H, Eos % (Auto) 2.1, Baso % (Auto) 0.3, Absolute Neuts (auto) 7.1, Absolute Lymphs (auto) 1.72, Nucleated RBC % 0, Sodium 139, Potassium 4.2, Chloride 109 H, Carbon Dioxide 26.0, Anion Gap 4 L, BUN 25 H, Creatinine 1.43 H, Estim Creat Clear Calc 46.51, Est GFR (MDRD) Af Amer 60, Est GFR (MDRD) Non-Af 50 L, BUN/Creatinine Ratio 17.5, Glucose 96, Calcium 8.7 Cardiology Labs/Tests 12/06/23 06:05: WBC 10.4, RBC 3.22 L, Hgb 9.7 L, Hct 30.3 L, MCV 94.1 H, MCH 30.1, MCHC 32.0, Plt Count 95 L, MPV 11.5, Immature Gran % (Auto) 0.600, Neut % (Auto) 68.0, Lymph % (Auto) 16.5 L, Hooker % (Auto) 12.5 H, Eos % (Auto) 2.1, Baso% (Auto) 0.3, Absolute Neuts (auto) 7.1, Nucleated RBC % 0, Sodium 139, Potassium 4.2, Chloride 109 H, Carbon Dioxide 26.0, Anion Gap 4 L, BUN 25 H, Creatinine 1.43 H, Est GFR (MDRD) Af Amer 60, Est GFR (MDRD) Non-Af 50 L, BUN/Creatinine Ratio 17.5, Glucose 96, Calcium 8.7 Rhythm: EKG: ECHO: Stress Test: Cardiac Cath: PCI: CT Surgery: Holter monitor: EPS: PPM: CXR: Chest CT Scan: Radiography Diagnostic Testing: Radiology Impression Echocardiogram 12/03/23 11:01 Interpretation Summary Mild concentric left ventricular hypertrophy. Posterior hypokinesis. Estimated ejection fraction 45%. Stage II diastolic dysfunction. The left atrium is severely enlarged. Moderate mitral annular calcification. Moderate (2+) posteriorly directed mitral valve insufficiency. Moderate (2+) eccentric tricuspid valve insufficiency. Right ventricular systolic pressure estimated to be 60 mmHg. Moderate diffuse aortic valve calcification. Mild aortic stenosis. Mild-Moderate(1-2+) aortic valve insufficiency. Mild to moderately dilated aortic root. Ordering Physician: Vanessa Simmons Referring Physician: Addi Mario Performed By: Gale Tarango RCS Physical Exam Narrative Comfortable. No apparent distress. Heart sounds 1 and 2 noted. 3/6 systolic murmur at base and 2/6 systolic murmur at apex. Chest clear to auscultation bilaterally. Alert oriented. No ankle edema. Assessment & Plan Assessment/Plan (1) Non-STEMI (non-ST elevated myocardial infarction): PLAN: Status post coronary angiography. No flow-limiting lesions noted. Troponin elevation likely type II. (2) CAD (coronary artery disease): PLAN: History of stent to the mid LAD. See #1 above. (3) Sepsis: PLAN: Underlying UTI and possible pneumonia. On antibiotics. Follow as per internal medicine. (4) Aortic stenosis: QUALIFIERS: Cardiac valve disease etiology: nonrheumatic Qualified Code(s): I35.0 - Nonrheumatic aortic (valve) stenosis PLAN: Mild aortic valve stenosis on echocardiogram. Periodic echo and clinical surveillance. (5) Mitral regurgitation: PLAN: Periodic echo and clinical surveillance. (6) Cardiomyopathy: PLAN: LVEF 45%. Nonischemic. Recommend repeat echo in 2 months. Start low-dose beta-blockers. Angiotensin receptor blockers when creatinine stable. (7) Paroxysmal atrial fibrillation: PLAN: Sinus rhythm here in the hospital. Was on apixaban at home. Resume. (8) Primary biliary cirrhosis: PLAN: As per internal medicine/GI. (9) Hyperlipidemia: QUALIFIERS: Hyperlipidemia type: unspecified Qualified Code(s): E78.5 - Hyperlipidemia, unspecified PLAN: On atorvastatin. (10) Thrombocytopenia: PLAN: Patient has history of chronic thrombocytopenia. Likely secondary to his hepatic disease. Platelet count mildly improved. Up to 95,000 today. (11) Acute kidney injury: PLAN: Monitor. Creatinine mildly improved from yesterday. 12/06/23 1218 <Electronically signed by Vanessa Simmons MD> Cosigner Signature (if applicable): CC: ~ Signed [facility] Work Phone: [phone] Progress note Author Klaudia Gonzales [facility] December 05, 2023 3:53pm Note Date/Time December 05, 2023 1:3 6pm [facility] Medical Records Department [address] [place] [address] Progress Note 12/05/23 1319 MR#: [id number] Acct: [id number] Name: JESSEE RUST Rep #:[id number] : 1935 88 From: Klaudia Gonzales MD PCP: Dr. Addi Mario MD Status:A DM IN Location: [place] [address] Subjective Subjective Patient seen and examined today. He had no active disease. Pain in his left leg had improved markedly. Replaced. Otherwise negative. He has remained hemodynamically stable. His platelets have been dropping so heparin drip was discontinued yesterday. Platelets today are 78. He is status EBUS yesterday and has not declined any further. Objective Data Objective Data Vital Signs: Vital Signs Temp Pulse Resp BP Pulse Ox O2 Del Method 98.1 F 96 18 121/82 H 92 Room Air 12/05/23 12:08 12/05/23 12:08 12/05/23 12:08 12/05/23 12:08 12/05/23 12:08 12/05/23 12:08 Oxygen Delivery Method Room Air Weight: 232 lb 2.348 oz Body Mass Index (BMI) 31.4 Intake & Output: Intake and Output for Last 24 Hours 12/03/23 12/04/23 12/05/23 23:59 23:59 23:59 Intake Total 1185.62 / 1665.62 2858.33 / 2858.33 455 / 455 Output Total 3125 / 3125 1100 / 1100 Balance 1184.62 / 689.62 -266.67 / -266.67 -645 / -645 Lab / Micro Data 12/05/23 08:13 12/05/23 08:13 Labs: Laboratory Results - last 24 hr 12/05/23 08:13: WBC 12.5 H, RBC 3.18 L, Hgb 9.7 L, Hct 29.8 L, MCV 93.7, MCH 30.5, MCHC 32.6, RDW Std Deviation 53.1 H, RDW Coeff of Angelia 15.4 H, Plt Count 78L, MPV 12.0, Immature Gran % (Auto) 0.800, Neut % (Auto) 71.3 H, Lymph % (Auto) 15.2 L, Hooker % (Auto) 11.6 H, Eos % (Auto) 0.8, Baso % (Auto) 0.3, Absolute Neuts (auto) 8.9 H, Absolute Lymphs (auto) 1.89, Nucleated RBC % 0, Sodium 139, Potassium 3.9, Chloride 109 H, Carbon Dioxide 26.0, Anion Gap 4 L, BUN 28 H, Creatinine 1.53 H, Estim Creat Clear Calc 43.47, Est GFR (MDRD) Af Amer 56 L, Est GFR (MDRD) Non-Af 46 L, BUN/Creatinine Ratio 18.3, Glucose 103, Calcium 8.6 Micro: Microbiology 12/02/23 13:30 Blood Culture (Wb) - Anticubital Right Blood Culture - Final 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 12/02/23 13:20 Blood Culture (Wb) - Anticubital Right Blood Culture - Final Escherichia coli 12/02/23 14:36 Urine, Clean Catch Urine Culture - Final Escherichia coli 12/02/23 13:30 Mucosa - Nose SARS-CoV-2, Influenza & RSV (PCR) - Final Physical Exam Const alert, oriented x3 and no apparent distress Constitutional Narrative: General Appearance: cooperative HEENT normocephalic, head/scalp atraumatic, moist oral mucous membranes and oropharynxnormal Eyes PERRL and EOMs intact bilaterally Neck no lymphadenopathy Lymph Lymphatic: no lymphadenopathy noted and no lymphedema noted Resp Resp Narrative: diminished breath sounds basally, few crackles. on room air. Cardio regular rate, regular rhythm, S1 normal heart sound, S2 normal heart sound and no murmurs GI normal to inspection, nondistended, normoactive bowel sounds, soft to palpation,non-tender and non-distended Extremity normal capillary refill, no clubbing, cyanosis or edema and no calf tenderness Extremity Narrative: mild tenderness in left groin area General Extremity: no tenderness to palpation of joints or extremities Skin General Skin Exam: no breakdown Neuro CN's II-XII intact bilaterally, no focal motor deficits, no sensory deficits noted and deep tendon reflexes 2+ bilaterally Motor Exam: strength 5/5 throughout and general weakness Psych thought process normal, cooperative and affect normal Appearance: appropriate Assessment & Plan Assessment/Plan (1) Acute kidney injury: (2) Paroxysmal atrial fibrillation: (3) Sepsis: (4) Non-STEMI (non-ST elevated myocardial infarction): PLAN: Plan #Nonstemi * cardiology on board. * troponins elevated * on aspirin, lipitor and zetia. * heparin drip discontinued due to thrombocytopenia * #Acute encephalopathy due to UTI and probable pneumonia * on IV rocephin and azithromycin * get urine cultures * wbc is down to 12.5 today, continues to trend downwards. * Urine cultures grew E. coli * #Thrombocytopenia * has chronic thrombocytopenia * wbc is down to 78 from 86; was 125 on admission. * platelets didnt drop any further overnight and is 78 today. * platelets have dropped significantly * Heparin drip discontinued. * #FRANKLIN: * Creatinine today is 1.53. Trending down slowly. * Baseline creatinine 0.7. Will continue to hydrate gently. 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 Heparin drip discontinued due to thrombocytopenia. Charges/Coding Visit Charges Inpatient E&M: 80129 Subs Hosp L2 12/05/23 7034 <Electronically signed by Klaudia Gonzales MD> Klaudia Gonzales MD Cosigner Signature (if applicable): CC: ~ Signed [facility] Work Phone: [phone] Progress note Author Vanessa Simmons [facility] December 05, 2023 10:09am Note Date/Time December 05, 2023 10: 09am [facility] Medical Records Department [address] [place] [address] Progress Note 12/05/23 1009 MR#: [id number] Acct: [id number] Name: JESSEE RUST Rep #:[id number] : 1935 88 From: Vanessa Simmons MD PCP: Dr. Addi Mario MD Status:A DM IN Location: [place] [address] Progress Note Platelet count stable. Creatinine also stable. Recommend coronary angiography with possible revascularization. Risks benefits and alternatives explained to the patient. He understand these and wishes to proceed. 12/05/23 1009 <Electronically signed by Vanessa Simmons MD> Vanessa Simmons MD Cosigner Signature (if applicable): CC: ~ Signed [facility] Work Phone: [phone] Progress note Author Klaudia [facility] December 04, 2023 1:16pm Note Date/Time December 04, 2023 12: 55pm [facility] Medical Records Department [address] [place] [address] Progress Note 12/04/23 1254 MR#: [id number] Acct: [id number] Name: JESSEE RUST Rep #:[id number] : 1935 88 From: Klaudia Gonzales MD PCP: Dr. Addi Mario MD Status:A DM IN Location: [place] [address] Subjective Subjective Patient seen and examined. He complains of some pain in his left upper thigh area. He said the pain had improved though he was able to flex his left leg at the hip much better. Cardiology on board. He has remained hemodynamically stable. Objective Data Objective Data Vital Signs: Vital Signs Temp Pulse Resp BP Pulse Ox O2 Del Method 97.9 F 76 16 101/68 95 Room Air 12/04/23 09:07 12/04/23 09:07 12/04/23 09:07 12/04/23 09:07 12/04/23 09:07 12/04/23 09:07 Oxygen Delivery Method Room Air Weight: 229 lb 11.547 oz Body Mass Index (BMI) 31.1 Intake & Output: Intake and Output for Last 24 Hours 12/02/23 12/03/23 12/04/23 23:59 23:59 23:59 Intake Total 731 / 731 1185.62 / 1665.62 835 / 835 Output Total 125 / 125 1 / 976 1275 / 1275 Balance 606 / 606 1184.62 / 689.62 -440 / -440 Lab / Micro Data 12/04/23 08:56 12/04/23 08:56 Labs: Laboratory Results - last 24 hr 12/04/23 08:56: WBC 19.0 H, RBC 3.51 L, Hgb 10.5 L, Hct 32.5 L, MCV 92.6, MCH 29.9, MCHC 32.3, RDW Std Deviation 52.8 H, RDW Coeff of Angelia 15.3 H, Plt Count 78L, MPV 12.2 H, Immature Gran % (Auto) 3.500 H, Neut % (Auto) 78.9 H, Lymph % (Auto) 8.8 L, Hooker % (Auto) 8.4, Eos % (Auto) 0.1, Baso % (Auto) 0.3, Absolute Neuts (auto) 15.0 H, Absolute Lymphs (auto) 1.67, Nucleated RBC % 0, Sodium 131 L, Potassium 4.1, Chloride 100, Carbon Dioxide 25.0, Anion Gap 6, BUN 26 H, Creatinine 1.65 H, Estim Creat Clear Calc 40.11, Est GFR (MDRD) Af Amer 51 L, Est GFR (MDRD) Non-Af 42 L, BUN/Creatinine Ratio 15.8, Glucose 120 H, Calcium 8.7 Micro: Microbiology 12/02/23 14:36 Urine, Clean Catch Urine Culture - Final Escherichia coli 12/02/23 13:30 Blood Culture (Wb) - Anticubital Right Blood Culture - Preliminary 12/02/23 13:20 Blood Culture (Wb) - Anticubital Right Blood Culture - Preliminary 12/02/23 13:30 Mucosa - Nose SARS-CoV-2, Influenza & RSV (PCR) - Final Radiography Diagnostic Testing: Radiology Impression Femur X-Ray 12/03/23 15:55 IMPRESSION: Negative left femur x-rays. Electronically Signed: Al Platt MD at 16:56 EDT , Physical Exam Const alert, oriented x3 and no apparent distress General Appearance: cooperative HEENT normocephalic, head/scalp atraumatic, moist oral mucous membranes and oropharynxnormal Eyes PERRL and EOMs intact bilaterally Neck no lymphadenopathy Lymph Lymphatic: no lymphadenopathy noted and no lymphedema noted Resp Resp Narrative: diminished breath sounds basally, few crackles. on room air. Cardio regular rate, regular rhythm, S1 normal heart sound, S2 normal heart sound and no murmurs GI normal to inspection, nondistended, normoactive bowel sounds, soft to palpation,non-tender and non-distended Extremity normal capillary refill, no clubbing, cyanosis or edema and no calf tenderness Extremity Narrative: mild tenderness in left groin area General Extremity: no tenderness to palpation of joints or extremities Skin General Skin Exam: no breakdown Neuro CN's II-XII intact bilaterally, no focal motor deficits, no sensory deficits noted and deep tendon reflexes 2+ bilaterally Motor Exam: strength 5/5 throughout and general weakness Psych Appearance: appropriate Assessment & Plan Assessment/Plan (1) Acute kidney injury: (2) Paroxysmal atrial fibrillation: (3) Sepsis: (4) Non-STEMI (non-ST elevated myocardial infarction): PLAN: Plan #Nonstemi * on heparin drip * cardiology on board. * troponins elevated * on aspirin, lipitor and zetia. * heparin drip discontinued due to thrombocytopenia * #Acute encephalopathy due to UTI and probable pneumonia * on IV rocephin and azithromycin * get urine cultures * wbc is down to 19 from 24 * Urine cultures grew E. coli * #Thrombocytopenia * has chronic thrombocytopenia * wbc is down to 78 from 86; was 125 on admission. * on hepariin drip * platelets have dropped significantly * Heparin drip discontinued. * #FRANKLIN: Creatinine is up to 1.65 from 1.55 yesterday. Has a baseline of 0.7. Willhydrate with IV fluids and trend. If it continues to trend upwards will consultnephrology. 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 Heparin drip discontinued due to thrombocytopenia. Charges/Coding Visit Charges Inpatient E&M: 36186 Subs Hosp L3 12/04/23 1316 <Electronically signed by Klaudia Gonzales MD> Klaudia Gonzales MD Cosigner Signature (if applicable): CC: ~ Signed [facility] Work Phone: [phone] Progress note Author Vanessa Simmons [facility] December 04, 2023 12:28pm Note Date/Time December 04, 2023 12: 28pm [facility] Medical Records Department [address] [place] [address] Progress Note - Cardiology 12/04/23 1226 MR#: [id number] Acct: [id number] Name: JESSEE RUST Rep #:[id number] : 1935 88 From: Vanessa Simmons MD PCP: Dr. Addi Mario MD Status:A DM IN Location: [place] [address] Subjective Subjective Feels better. No complaints. Objective Data Vital Signs: Vital Signs Temp Pulse Resp BP Pulse Ox O2 Del Method 97.9 F 76 16 101/68 95 Room Air 12/04/23 09:07 12/04/23 09:07 12/04/23 09:07 12/04/23 09:07 12/04/23 09:07 12/04/23 09:07 Oxygen Delivery Method Room Air Weight: 229 lb 11.547 oz Body Mass Index (BMI) 31.1 Intake & Output: Intake and Output for Last 24 Hours 12/02/23 12/03/23 12/04/23 23:59 23:59 23:59 Intake Total 731 / 731 1185.62 / 1665.62 835 / 835 Output Total 125 / 125 1 / 976 1275 / 1275 Balance 606 / 606 1184.62 / 689.62 -440 / -440 Lab / Micro Data 12/04/23 08:56 12/04/23 08:56 Labs: Laboratory Results - last 24 hr 12/04/23 08:56: WBC 19.0 H, RBC 3.51 L, Hgb 10.5 L, Hct 32.5 L, MCV 92.6, MCH 29.9, MCHC 32.3, RDW Std Deviation 52.8 H, RDW Coeff of Nagelia 15.3 H, Plt Count 78L, MPV 12.2 H, Immature Gran % (Auto) 3.500 H, Neut % (Auto) 78.9 H, Lymph % (Auto) 8.8 L, Hooker % (Auto) 8.4, Eos % (Auto) 0.1, Baso % (Auto) 0.3, Absolute Neuts (auto) 15.0 H, Absolute Lymphs (auto) 1.67, Nucleated RBC % 0, Sodium 131 L, Potassium 4.1, Chloride 100, Carbon Dioxide 25.0, Anion Gap 6, BUN 26 H, Creatinine 1.65 H, Estim Creat Clear Calc 40.11, Est GFR (MDRD) Af Amer 51 L, Est GFR (MDRD) Non-Af 42 L, BUN/Creatinine Ratio 15.8, Glucose 120 H, Calcium 8.7 Micro: Microbiology 12/02/23 14:36 Urine, Clean Catch Urine Culture - Final Escherichia coli Cardiology Labs/Tests 12/04/23 08:56: WBC 19.0 H, RBC 3.51 L, Hgb 10.5 L, Hct 32.5 L, MCV 92.6, MCH 29.9, MCHC 32.3, Plt Count 78 L, MPV 12.2 H, Immature Gran % (Auto) 3.500 H, Neut % (Auto) 78.9 H, Lymph % (Auto) 8.8 L, Hooker % (Auto) 8.4, Eos % (Auto) 0.1,Baso % (Auto) 0.3, Absolute Neuts (auto) 15.0 H, Nucleated RBC % 0, Sodium 131 L, Potassium 4.1, Chloride 100, Carbon Dioxide 25.0, Anion Gap 6, BUN 26 H, Creatinine 1.65 H, Est GFR (MDRD) Af Amer 51 L, Est GFR (MDRD) Non-Af 42 L, BUN/Creatinine Ratio 15.8, Glucose 120 H, Calcium 8.7 Rhythm: EKG: ECHO: Stress Test: Cardiac Cath: PCI: CT Surgery: Holter monitor: EPS: PPM: CXR: Chest CT Scan: Radiography Diagnostic Testing: Radiology Impression Femur X-Ray 12/03/23 15:55 IMPRESSION: Negative left femur x-rays. Electronically Signed: Al Platt MD at 16:56 EDT Reading Location ID and State: [facility] / [place] Tel , Service support , Physical Exam Narrative Comfortable. Lying flat in the bed. No apparent distress. Heart sounds 1 and 2 noted. 3/6 systolic murmur at base and 2/6 systolic murmur at apex. Chest clear to auscultation bilaterally. Alert oriented. No ankle edema. Assessment & Plan Assessment/Plan (1) Non-STEMI (non-ST elevated myocardial infarction): PLAN: Continue aspirin. Patient received about 24 hours of anticoagulation withheparin. DC in view of the drop in platelet count. No beta-blockers in view ofborderline blood pressure. Check echocardiogram. Troponin elevation likely type II. Ideally would recommend coronary angiographyhowever will postpone in view of trend of decreasing platelets and increasing creatinine. Recommend nephrology and hematology consult (2) CAD (coronary artery disease): PLAN: History of stent to the mid LAD. See #1 above. (3) Sepsis: PLAN: Underlying UTI and possible pneumonia. On antibiotics. Follow as per internal medicine. (4) Aortic stenosis: QUALIFIERS: Cardiac valve disease etiology: nonrheumatic Qualified Code(s): I35.0 - Nonrheumatic aortic (valve) stenosis PLAN: Check echocardiogram. (5) Primary biliary cirrhosis: PLAN: As per internal medicine/GI. (6) Hyperlipidemia: QUALIFIERS: Hyperlipidemia type: unspecified Qualified Code(s): E78.5 - Hyperlipidemia, unspecified PLAN: On atorvastatin. (7) Thrombocytopenia: PLAN: Patient has history of chronic thrombocytopenia. Likely secondary to his hepatic disease. However marked drop in platelet count noted from yesterday. Monitor. Consider hematology consult. (8) Paroxysmal atrial fibrillation: PLAN: Sinus rhythm here in the hospital. Was on apixaban at home. (9) Acute kidney injury: PLAN: Creatinine increased from 1.06 yesterday to 1.55 today. Monitor. Consider nephrology consult. 12/04/23 1228 <Electronically signed by Vanessa Simmons MD> Cosigner Signature (if applicable): CC: ~ Signed [facility] Work Phone: [phone] Progress note Author Klaudia Gonzales [facility] December 03, 2023 4:37pm Note Date/Time December 03, 2023 4:3 7pm [facility] Medical Records Department [address] [place] [address] Progress Note 12/03/23 1623 MR#: [id number] Acct: [id number] Name: JESSEE RUST Rep #:[id number] : 1935 88 From: Klaudia Gonzales MD PCP: Dr. Addi Mario MD Status:A DM IN Location: [place] [address] Subjective Subjective Patient seen and examined. He complained of pain in his left groin area. He is being managed for nonstemi. HE denied any chest pain, but admit to shortness of breath. Review of systems is otherwise negative. Objective Data Objective Data Vital Signs: Vital Signs Temp Pulse Resp BP Pulse Ox O2 Del Method 98.0 F 79 18 111/51 L 97 Room Air 12/03/23 14:16 12/03/23 14:16 12/03/23 14:16 12/03/23 14:16 12/03/23 14:16 12/03/23 14:50 Oxygen Delivery Method Room Air Weight: 230 lb 6.129 oz Body Mass Index (BMI) 31.2 Intake & Output: Intake and Output for Last 24 Hours 12/01/23 12/02/23 12/03/23 23:59 23:59 23:59 Intake Total 731 / 731 394.58 / 394.58 Output Total 125 / 125 Balance 606 / 606 393.58 / 393.58 Lab / Micro Data 12/03/23 06:15 12/03/23 06:15 Labs: Laboratory Results - last 24 hr 12/02/23 16:17: Troponin I High Sens 829 H* 12/02/23 18:00: Lactic Acid 2.3 H* 12/02/23 22:03: APTT 120.2 H* 12/03/23 06:15: WBC 24.2 H, RBC 3.48 L, Hgb 10.5 L, Hct 32.4 L, MCV 93.1, MCH 30.2, MCHC 32.4, RDW Std Deviation 52.5 H, RDW Coeff of Angelia 15.4 H, Plt Count 86L, MPV 11.7, Immature Gran % (Auto) 2.800 H, Neut % (Auto) 81.4 H, Lymph % (Auto) 7.3 L, Hooker % (Auto) 7.4, Eos % (Auto) 0.7, Baso % (Auto) 0.4, Absolute Neuts (auto) 19.7 H, Absolute Lymphs (auto) 1.76, Nucleated RBC % 0, Differential Comment SCANNED, Diff Path Review January, APTT 71.0 H, Sodium 133L, Potassium 4.0, Chloride 100, Carbon Dioxide 26.0, Anion Gap 7, BUN 23 H, Creatinine 1.55 H, Estim Creat Clear Calc 42.75, Est GFR (MDRD) Af Amer 55 L, Est GFR (MDRD) Non-Af 45 L, BUN/Creatinine Ratio 14.8, Glucose 122 H, Calcium 8.5 Micro: Microbiology 12/02/23 14:36 Urine, Clean Catch Urine Culture - Preliminary 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 12/02/23 13:30 Blood Culture (Wb) - Anticubital Right Blood Culture - Preliminary 12/02/23 13:20 Blood Culture (Wb) - Anticubital Right Blood Culture - Preliminary 12/02/23 13:30 Mucosa - Nose SARS-CoV-2, Influenza & RSV (PCR) - Final Physical Exam Const alert, oriented x3 and no apparent distress Constitutional Narrative: on BIPAP, frail General Appearance: cooperative HEENT normocephalic, head/scalp atraumatic, moist oral mucous membranes and oropharynxnormal Eyes PERRL and EOMs intact bilaterally Neck no lymphadenopathy Lymph Lymphatic: no lymphadenopathy noted and no lymphedema noted Resp Resp Narrative: diminished breath sounds basally, few crackles. on room air. Cardio regular rate, regular rhythm, S1 normal heart sound, S2 normal heart sound and no murmurs GI normal to inspection, nondistended, normoactive bowel sounds, soft to palpation,non-tender and non-distended Extremity normal capillary refill, no clubbing, cyanosis or edema and no calf tenderness Extremity Narrative: mild tenderness in left groin area Neuro CN's II-XII intact bilaterally, no focal motor deficits, no sensory deficits noted and deep tendon reflexes 2+ bilaterally Motor Exam: strength 5/5 throughout and general weakness Psych Appearance: appropriate Assessment & Plan Assessment/Plan (1) Acute kidney injury: (2) Paroxysmal atrial fibrillation: (3) Sepsis: (4) Non-STEMI (non-ST elevated myocardial infarction): PLAN: Plan #Nonstemi * on heparin drip * cardiology consulted * troponins elevated * on aspirin, lipitor and zetia. * wbc is 24.2 * #Acute encephalopathy due to UTI and probable pneumonia * on IV rocephin and azithromycin * get urine cultures * #FRANKLIN: Creatinine is 1.55 with a baseline of around 0.7. Will hydrate with IV fluids and trend. 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 #Iron deficiency anemia: on oral iron supplementation #BPH: on flomax #Glaucoma: on eye drops DVT prophylaxis: Currently on heparin drip Charges/Coding Visit Charges Inpatient E&M: 25422 Subs Hosp L3 12/03/23 1637 <Electronically signed by Klaudia Gonzales MD> Klaudia Gonzales MD Cosigner Signature (if applicable): CC: ~ Signed [facility] Work Phone: [phone] Consult note Author Vanessa Simmons [facility] December 03, 2023 11:01am Note Date/Time December 03, 2023 10: 47am [facility] Medical Records Department [address] [place] [address] Consultation - Cardiology 12/03/23 1046 MR#: [id number] Acct: [id number] Name: JESSEE RUST Rep #:[id number] : 1935 88 From: Vanessa Simmons MD PCP: Dr. Addi Mario MD Status:A DM IN Location: [place] [address] Assessment & Plan Assessment/Plan (1) Non-STEMI (non-ST elevated myocardial infarction): PLAN: Continue aspirin. Patient received about 24 hours of anticoagulation withheparin. DC in view of the drop in platelet count. No beta-blockers in view ofborderline blood pressure. Check echocardiogram. Troponin elevation type I versus type II. Ideally coronary angiography would beindicated. However will monitor platelet counts and his kidney function. If these do not resolve or get worse, then will suggest a Lexiscan stress Myoview to assess burden of ischemia first. (2) CAD (coronary artery disease): PLAN: History of stent to the mid LAD. See #1 above. (3) Sepsis: PLAN: Underlying UTI and possible pneumonia. On antibiotics. Follow as per internal medicine. (4) Aortic stenosis: QUALIFIERS: Cardiac valve disease etiology: nonrheumatic Qualified Code(s): I35.0 - Nonrheumatic aortic (valve) stenosis PLAN: Check echocardiogram. (5) Primary biliary cirrhosis: PLAN: As per internal medicine/GI. (6) Hyperlipidemia: QUALIFIERS: Hyperlipidemia type: unspecified Qualified Code(s): E78.5 - Hyperlipidemia, unspecified PLAN: On atorvastatin. (7) Thrombocytopenia: PLAN: Patient has history of chronic thrombocytopenia. Likely secondary to his hepatic disease. However marked drop in platelet count noted from yesterday. Monitor. Consider hematology consult. (8) Paroxysmal atrial fibrillation: PLAN: Sinus rhythm here in the hospital. Was on apixaban at home. (9) Acute kidney injury: PLAN: Creatinine increased from 1.06 yesterday to 1.55 today. Monitor. Consider nephrology consult. HPI Consult Data Date of Consult: 12/03/23 HPI Narrative Reason for Consultation: NSTEMI HPI Narrative: This gentleman has past medical history of significant for coronary artery disease status post stents to his mid LAD. He also has history of mild aortic stenosis, liver disease and hypertension. Patient is a rather poor historian. This morning he has only been complaining of left groin pain. According to him, he came to the hospital because of lower back pain. He complains of chronic shortness of breath with exertion. He thinks that the night before presentation to the hospital, his shortness of breath may have been slightly worse. Denies any chest pains. No orthopnea. No ankle edema. Patient was noted to have UTI and possible pneumonia on investigations in the emergency room. His troponins were also noted to be elevated. [facility] Medical History (Updated 12/03/23 @ 10:[address] Vanessa Simmons MD) Advanced directives, counseling/discussion Anemia Anginal equivalent Aortic stenosis Asthma Atherosclerosis of coronary artery of [place] heart without angina pectoris Atrial fibrillation BPH (benign prostatic hyperplasia) Bradycardia Cholelithiasis without obstruction Closed vertical fracture of left patella Degenerative disc disease, cervical Dermatitis Dizziness Essential hypertension Extensor tenosynovitis of right wrist Fall Fracture of triquetrum of left wrist Fracture of triquetrum of right wrist Glaucoma History of colon polyps History of pneumonia History of skin cancer Hyperlipidemia Hypertension Hyponatremia Iron deficiency anemia Left facial swelling Liver disease Memory impairment Migraines Multiple fractures New onset atrial fibrillation Non-smoker Nonrheumatic aortic valve stenosis Obesity Orthostatic hypotension Osteoarthritis Paroxysmal atrial fibrillation Physical debility Primary biliary cirrhosis Psoriasis Restrictive airway disease Rheumatoid arthritis Rheumatoid arthritis Right foot pain Seasonal allergies Sinus bradycardia Thrombocytopenia Vitamin D deficiency Home Medications aspirin 81 mg tablet,delayed release 81 mg PO DAILY@0800 [facility] 12/06/16 [History Last Taken 12/02/23] travoprost 0.004 % eye drops 1 drp EACH EYE QHS glaucoma 06/02/19 [History Last Taken 06/06/20] magnesium oxide (Cornejo) 1,500 mg PO QHS 08/05/20 [History Last Taken 12/01/23] cholecalciferol (vitamin D3) 50 mcg (2,000 unit) tablet 50 mcg PO DAILY 11/19/20[History Last Taken 12/01/23] cyanocobalamin (vitamin B-12) 1,000 mcg capsule 1,000 mcg PO DAILY 11/19/20 [History Last Taken 12/01/23] Disability Placard #1 ea 12/01/21 [Rx Last Taken Unknown] Arthritis Compound 1 click topical DAILY PRN Pain #60 CLICKS 02/08/22 [Rx Last Taken Unknown] cetirizine 10 mg capsule 10 mg PO DAILY PRN allergy 10/05/22 [History Last Taken 12/01/23] apixaban 5 mg tablet (Eliquis) 5 mg PO BID #60 tabs 12/08/22 [Rx Last Taken 12/02/23] albuterol sulfate 90 mcg/actuation aerosol inhaler (Ventolin HFA) 2 puff inhalation Q4H PRN Asthma #8.5 grams 04/28/23 [Rx Last Taken Unknown] nebulizer and compressor (Portable Nebulizer System) #1 ea 04/30/23 [Rx Last Taken Unknown] guaifenesin 1,200 mg tablet, extended release 12 hr 1,200 mg PO Q12H #60 tabs 06/29/23 [Rx Last Taken 12/02/23] atorvastatin 20 mg tablet 20 mg PO QHS cholesterol #90 tabs 07/07/23 [Rx Last Taken 12/01/23] ursodiol 500 mg tablet See Rx Instructions .Route .COMPLEX #180 tabs 08/03/23 [Rx Last Taken 12/02/23] famotidine 20 mg tablet 20 mg PO DAILY #90 tabs 08/10/23 [Rx Last Taken 12/02/23] brimonidine 0.1 % eye drops 1 drp ophthalmic (eye) DAILY 08/15/23 [History Last Taken 12/02/23] budesonide-formoterol HFA 160 mcg-4.5 mcg/actuation aerosol inhaler (Symbicort) 2 puff inhalation BID 08/15/23 [History Last Taken 12/02/23] finasteride 5 mg tablet 5 mg PO DAILY #90 tabs 08/18/23 [Rx Last Taken 12/02/23] ezetimibe 10 mg tablet 10 mg PO DAILY heart health #90 tabs 09/15/23 [Rx Last Taken 12/02/23] nitroglycerin 0.4 mg sublingual tablet 0.4 mg sublingual Q5-15M PRN chest pain #25 tabs 09/15/23 [Rx Last Taken Unknown] ferrous sulfate 325 mg (65 mg iron) tablet 325 mg PO QODAY #90 tabs 11/23/23 [Rx Last Taken 12/01/23] zontrmyb-hdx-dmuzj acid 0.4 mg-lycopene 300 mcg-lutein 250 mcg tablet (Centrum Silver) 1 tab PO DAILY 12/02/23 [History Last Taken 12/01/23] netarsudil 0.02 %-latanoprost 0.005 % eye drops (Rocklatan) 1 drp ophthalmic (eye) QHS 12/02/23 [History Last Taken 12/02/23] Allergy/AdvReac Type Severity Reaction Status Date / Time metoprolol [From Lopressor] Allergy Intermediate Shortness Verified 10/20/23 09:49 of breath Penicillins Allergy Rash Verified 10/20/23 09:49 Family History Father Hypertension Grandmother Hypertension Other Alcoholism Liver disease Surgical History (Updated 12/02/23 @ 17:40 by Saumya Presley) History of appendectomy History of cataract extraction History of colon resection History of coronary artery stent placement History of partial colectomy (~2003) Presence of stent in coronary artery Social History Smoking Status: Never smoker alcohol intake: current alcohol intake frequency: holidays/special occasions only substance use type: does not use caffeine: No what type of physical activity do you participate in: weight training Physical Exam Narrative Comfortable. Lying flat in the bed. No apparent distress. Heart sounds 1 and 2 noted. 3/6 systolic murmur at base and 2/6 systolic murmur at apex. Chest clear to auscultation bilaterally. Alert oriented. No ankle edema. Risk Stratification Risk Stratification Applicable: No Objective Data Vital Signs: Vital Signs Temp Pulse Resp BP Pulse Ox O2 Del Method 98.0 F 60 18 103/62 99 Room Air 12/03/23 08:16 12/03/23 08:16 12/03/23 08:16 12/03/23 08:16 12/03/23 08:16 12/03/23 08:23 Oxygen Delivery Method Room Air Weight: 230 lb 6.129 oz Body Mass Index (BMI) 31.2 Intake & Output: Intake and Output for Last 24 Hours 12/01/23 12/02/23 12/03/23 23:59 23:59 23:59 Intake Total 731 / 731 47.02 / 47.02 Output Total 125 / 125 Balance 606 / 606 47.02 / 47.02 Lab / Micro Data 12/03/23 06:15 12/03/23 06:15 Labs: Laboratory Results - last 24 hr 12/02/23 12:35: WBC 8.9, RBC 4.13 L, Hgb 12.3 L, Hct 39.3 L, MCV 95.2 H, MCH 29.8, MCHC 31.3 L, RDW Std Deviation 52.5 H, RDW Coeff of Angelia 15.0 H, Plt Count 125 L, MPV 11.4, Immature Gran % (Auto) 0.600, Neut % (Auto) 83.1 H, Lymph % (Auto) 11.5 L, Hooker % (Auto) 4.1, Eos % (Auto) 0.5, Baso % (Auto) 0.2, Absolute Neuts (auto) 7.4, Absolute Lymphs (auto) 1.02, Nucleated RBC % 0, PT Cancelled, INR Cancelled, APTT Cancelled 12/02/23 12:53: PT 15.1 H, INR 1.2, APTT 34.4, Sodium 134 L, Potassium 3.8, Chloride 100, Carbon Dioxide 29.0, Anion Gap 5, BUN 15, Creatinine 1.06, Estim Creat Clear Calc 63.01, Est GFR (MDRD) Af Amer 85, Est GFR (MDRD) Non-Af 70, BUN/Creatinine Ratio 14.2, Glucose 134 H, Lactic Acid 2.1 H*, Calcium 9.6, Troponin I High Sens 912 H* 12/02/23 14:36: Urine Color Yellow, Urine Clarity Sl. Cloudy, Urine pH 7.0, Ur Specific Henning 1.010, Urine Protein 15 H, Urine Glucose (UA) Normal, Urine Ketones Negative, Urine Occult Blood 50 H, Urine Nitrite Negative, Urine BilirubinNegative, Urine Urobilinogen Normal, Ur Leukocyte Esterase 100 H, Urine RBC 0-5 SEEN, Urine WBC 10-25 SEEN, Ur Squamous Epith Cells 0 SEEN, Urine Bacteria 1+, Urine Mucus 0 SEEN 12/02/23 16:17: Troponin I High Sens 829 H* 12/02/23 18:00: Lactic Acid 2.3 H* 12/02/23 22:03: APTT 120.2 H* 12/03/23 06:15: WBC 24.2 H, RBC 3.48 L, Hgb 10.5 L, Hct 32.4 L, MCV 93.1, MCH 30.2, MCHC 32.4, RDW Std Deviation 52.5 H, RDW Coeff of Angelia 15.4 H, Plt Count 86L, MPV 11.7, Immature Gran % (Auto) 2.800 H, Neut % (Auto) 81.4 H, Lymph % (Auto) 7.3 L, Hooker % (Auto) 7.4, Eos % (Auto) 0.7, Baso % (Auto) 0.4, Absolute Neuts (auto) 19.7 H, Absolute Lymphs (auto) 1.76, Nucleated RBC % 0, Differential Comment SCANNED, Diff Path Review January, APTT 71.0 H, Sodium 133L, Potassium 4.0, Chloride 100, Carbon Dioxide 26.0, Anion Gap 7, BUN 23 H, Creatinine 1.55 H, Estim Creat Clear Calc 42.75, Est GFR (MDRD) Af Amer 55 L, Est GFR (MDRD) Non-Af 45 L, BUN/Creatinine Ratio 14.8, Glucose 122 H, Calcium 8.5 Micro: Microbiology 12/02/23 13:30 Blood Culture (Wb) - Anticubital Right Blood Culture - Preliminary 12/02/23 13:20 Blood Culture (Wb) - Anticubital Right Blood Culture - Preliminary 12/02/23 13:30 Mucosa - Nose SARS-CoV-2, Influenza & RSV (PCR) - Final ABG Data ABG results: ABG 12/02/23 15:04 Specimen Type ART Sample Site R Radial pH 7.48 H Bicarbonate Actual 24.6 Total CO2 26 Base Excess 1 O2 Saturation 93 L O2 % 21.0 ABG pCO2 33.1 L ABG pO2 62 L Bj Test Positive O2 Delivery Device Room Air Vent Mode Not entered Cardiology Labs/Tests 12/02/23 12:35: WBC 8.9, RBC 4.13 L, Hgb 12.3 L, Hct 39.3 L, MCV 95.2 H, MCH 29.8, MCHC 31.3 L, Plt Count 125 L, MPV 11.4, Immature Gran % (Auto) 0.600, Neut% (Auto) 83.1 H, Lymph % (Auto) 11.5 L, Hooker % (Auto) 4.1, Eos % (Auto) 0.5, Baso % (Auto) 0.2, Absolute Neuts (auto) 7.4, Nucleated RBC % 0, PT Cancelled, INR Cancelled, APTT Cancelled 12/02/23 12:53: PT 15.1 H, INR 1.2, APTT 34.4, Sodium 134 L, Potassium 3.8, Chloride 100, Carbon Dioxide 29.0, Anion Gap 5, BUN 15, Creatinine 1.06, Est GFR(MDRD) Af Amer 85, Est GFR (MDRD) Non-Af 70, BUN/Creatinine Ratio 14.2, Glucose 134 H, Lactic Acid 2.1 H*, Calcium 9.6 12/02/23 14:36: Urine Color Yellow, Urine Clarity Sl. Cloudy, Urine pH 7.0, Ur Specific Henning 1.010, Urine Protein 15 H, Urine Glucose (UA) Normal, Urine Ketones Negative, Urine Occult Blood 50 H, Urine Nitrite Negative, Urine Bilirubin Negative, Urine Urobilinogen Normal, Ur Leukocyte Esterase 100 H, Urine RBC 0-5 SEEN, Urine WBC 10-25 SEEN 12/02/23 15:04: pH 7.48 H, Bicarbonate Actual 24.6, Base Excess 1, O2 [id number] L, ABG pCO2 33.1 L, ABG pO2 62 L, Bj Test Positive 12/02/23 18:00: Lactic Acid 2.3 H* 12/02/23 22:03: APTT 120.2 H* 12/03/23 06:15: WBC 24.2 H, RBC 3.48 L, Hgb 10.5 L, Hct 32.4 L, MCV 93.1, MCH 30.2, MCHC 32.4, Plt Count 86 L, MPV 11.7, Immature Gran % (Auto) 2.800 H, Neut % (Auto) 81.4 H, Lymph % (Auto) 7.3 L, Hooker % (Auto) 7.4, Eos % (Auto) 0.7, Baso% (Auto) 0.4, Absolute Neuts (auto) 19.7 H, Nucleated RBC % 0, APTT 71.0 H, Sodium 133 L, Potassium 4.0, Chloride 100, Carbon Dioxide 26.0, Anion Gap 7, BUN23 H, Creatinine 1.55 H, Est GFR (MDRD) Af Amer 55 L, Est GFR (MDRD) Non-Af 45 L, BUN/Creatinine Ratio 14.8, Glucose 122 H, Calcium 8.5 Rhythm: On telemetry, patient is noted to have predominantly sinus rhythm with frequent PVCs. EKG: Undetermined rhythm secondary to baseline artifact. ECHO: Stress Test: Cardiac Cath: PCI: CT Surgery: Holter monitor: EPS: PPM: CXR: Chest CT Scan: Radiography Diagnostic Testing: Radiology Impression Chest X-Ray 12/02/23 13:25 IMPRESSION: Mild degree of vascular congestion with mild increased markings in the left midlung and left lower lobe. Electronically Signed: Charbel Aguayo MD at 14:20 EDT , Brain CT 12/02/23 14:42 IMPRESSION: Chronic involutional changes of the brain. Electronically Signed: Charbel Aguayo MD at 15:48 EDT , 12/03/23 1101 <Electronically signed by Vanessa Simmons MD> Cosigner Signature (if applicable): CC: Dr. Vanessa Simmons MD; Dr. Addi Mario MD; Dr. Miguelito Laguna MD~ Signed [facility] Work Phone: [phone]) 767-535403-15-2024 History and physical note Author Miguelito Laguna [facility] December 02, 2023 6:15pm Note Date/Time December 02, 2023 5:4 5pm [facility] Medical Records Department [address] [facility] [place] [address] H&P Exam - Hospitalist 12/02/23 1741 MR#: [id number] Acct: [id number] Name: JESSEE RUST Rep #:[id number] : 1935 88 From: Miguelito gan MD PCP: Dr. Addi Mario MD Status:A DM IN Location: [address] HPI - General General Date of Admission: 12/02/23 HPI Narrative JESSEE RUST, is a 88 M who presents to the hospital with right-sided flank pain. He is a bit confused as he thinks it is 1921 but he knows where he is andhis age. He was also related to the ED physician or not to myself that he was having back pain as well as chest pain that started yesterday. In the ER he wasfound to have a troponin of 900 with a nonischemic EKG. Chest x-ray demonstrated the possible infiltrate and UA was consistent with a UTI she was also started on antibiotics as well as a heparin drip. He denies significant shortness of breath but states that he does have a little bit of a cough. Lactic acid on admission was elevated 2.1 though he does not have a leukocytosisbut he did spike a temperature to 103.1 so cultures are also currently pending. The ED physician did notify cardiology about his potential non-STEMI. [facility] Medical History (Updated 12/02/23 @ 17:40 by Saumya Presley) Advanced directives, counseling/discussion Anemia Anginal equivalent Aortic stenosis Asthma Atherosclerosis of coronary artery of [place] heart without angina pectoris Atrial fibrillation BPH (benign prostatic hyperplasia) Bradycardia Cholelithiasis without obstruction Closed vertical fracture of left patella Degenerative disc disease, cervical Dermatitis Dizziness Essential hypertension Extensor tenosynovitis of right wrist Fall Fracture of triquetrum of left wrist Fracture of triquetrum of right wrist Glaucoma History of colon polyps History of pneumonia History of skin cancer Hyperlipidemia Hypertension Hyponatremia Iron deficiency anemia Left facial swelling Liver disease Memory impairment Migraines Multiple fractures New onset atrial fibrillation Non-smoker Nonrheumatic aortic valve stenosis Obesity Orthostatic hypotension Osteoarthritis Paroxysmal atrial fibrillation Physical debility Primary biliary cirrhosis Psoriasis Restrictive airway disease Rheumatoid arthritis Rheumatoid arthritis Right foot pain Seasonal allergies Sinus bradycardia Thrombocytopenia Vitamin D deficiency Home Medications aspirin 81 mg tablet,delayed release 81 mg PO DAILY@0800 [facility] 12/06/16 [History Last Taken 12/02/23] travoprost 0.004 % eye drops 1 drp EACH EYE QHS glaucoma 06/02/19 [History Last Taken 06/06/20] magnesium oxide (Cornejo) 1,500 mg PO QHS 08/05/20 [History Last Taken 12/01/23] cholecalciferol (vitamin D3) 50 mcg (2,000 unit) tablet 50 mcg PO DAILY 11/19/20[History Last Taken 12/01/23] cyanocobalamin (vitamin B-12) 1,000 mcg capsule 1,000 mcg PO DAILY 11/19/20 [History Last Taken 12/01/23] Disability Placard #1 ea 12/01/21 [Rx Last Taken Unknown] Arthritis Compound 1 click topical DAILY PRN Pain #60 CLICKS 02/08/22 [Rx Last Taken Unknown] cetirizine 10 mg capsule 10 mg PO DAILY PRN allergy 10/05/22 [History Last Taken 12/01/23] apixaban 5 mg tablet (Eliquis) 5 mg PO BID #60 tabs 12/08/22 [Rx Last Taken 12/02/23] albuterol sulfate 90 mcg/actuation aerosol inhaler (Ventolin HFA) 2 puff inhalation Q4H PRN Asthma #8.5 grams 04/28/23 [Rx Last Taken Unknown] nebulizer and compressor (Portable Nebulizer System) #1 ea 04/30/23 [Rx Last Taken Unknown] guaifenesin 1,200 mg tablet, extended release 12 hr 1,200 mg PO Q12H #60 tabs 06/29/23 [Rx Last Taken 12/02/23] atorvastatin 20 mg tablet 20 mg PO QHS cholesterol #90 tabs 07/07/23 [Rx Last Taken 12/01/23] ursodiol 500 mg tablet See Rx Instructions .Route .COMPLEX #180 tabs 08/03/23 [Rx Last Taken 12/02/23] famotidine 20 mg tablet 20 mg PO DAILY #90 tabs 08/10/23 [Rx Last Taken 12/02/23] brimonidine 0.1 % eye drops 1 drp ophthalmic (eye) DAILY 08/15/23 [History Last Taken 12/02/23] budesonide-formoterol HFA 160 mcg-4.5 mcg/actuation aerosol inhaler (Symbicort) 2 puff inhalation BID 08/15/23 [History Last Taken 12/02/23] finasteride 5 mg tablet 5 mg PO DAILY #90 tabs 08/18/23 [Rx Last Taken 12/02/23] ezetimibe 10 mg tablet 10 mg PO DAILY heart health #90 tabs 09/15/23 [Rx Last Taken 12/02/23] nitroglycerin 0.4 mg sublingual tablet 0.4 mg sublingual Q5-15M PRN chest pain #25 tabs 09/15/23 [Rx Last Taken Unknown] ferrous sulfate 325 mg (65 mg iron) tablet 325 mg PO QODAY #90 tabs 11/23/23 [Rx Last Taken 12/01/23] ukvvlqzz-jao-pifhk acid 0.4 mg-lycopene 300 mcg-lutein 250 mcg tablet (Centrum Silver) 1 tab PO DAILY 12/02/23 [History Last Taken 12/01/23] netarsudil 0.02 %-latanoprost 0.005 % eye drops (Rocklatan) 1 drp ophthalmic (eye) QHS 12/02/23 [History Last Taken 12/02/23] Allergy/AdvReac Type Severity Reaction Status Date / Time metoprolol [From Lopressor] Allergy Intermediate Shortness Verified 10/20/23 09:49 of breath Penicillins Allergy Rash Verified 10/20/23 09:49 Family History Father Hypertension Grandmother Hypertension Other Alcoholism Liver disease Surgical History (Updated 12/02/23 @ 17:40 by Saumya Presley) History of appendectomy History of cataract extraction History of colon resection History of coronary artery stent placement History of partial colectomy (~2003) Presence of stent in coronary artery Social History Smoking Status: Never smoker alcohol intake: current alcohol intake frequency: holidays/special occasions only substance use type: does not use caffeine: No what type of physical activity do you participate in: weight training ROS Constitutional Constitutional: Denies chills, fatigue, fever(s) or malaise Eyes Eyes: Denies blurry vision ENT HEENT: Denies headache(s) or nasal discharge Cardiovascular Cardiovascular: Reports chest pain; Denies dyspnea on exertion or syncope Respiratory/Chest Respiratory/Chest: Reports cough; Denies shortness of breath at rest or shortness of breath with exertion Gastrointestinal Gastrointestinal: Denies constipation, diarrhea, nausea or vomiting Genitourinary Genitourinary: Reports other Details: Flank pain ; Denies dysuria Neurologic Neurologic: Denies focal weakness, numbness or tremor(s) Psychiatric Psychiatric: Denies anxiety or depression Vital Signs Vital Signs Vital Signs: 12/02/23 12:31 12/02/23 13:37 12/02/23 13:37 Temperature 97.2 F L Temperature Source Temporal Pulse Rate 60 Respiratory Rate 18 Respiratory Effort Short of Breath Respiratory Pattern Tachypnea Blood Pressure 133/83 H Blood Pressure Mean 99 Blood Pressure Source Blood Pressure Position Blood Pressure Location Pulse Ox 92 Oxygen Delivery Method Room Air Room Air 12/02/23 14:29 12/02/23 16:00 12/02/23 16:45 Temperature 103.1 F H 99.1 F Temperature Source Oral Pulse Rate 83 90 Respiratory Rate 22 H 26 H Respiratory Effort Respiratory Pattern Blood Pressure 132/62 H 129/65 H Blood Pressure Mean 85 86 Blood Pressure Source Blood Pressure Position Blood Pressure Location Pulse Ox 95 94 Oxygen Delivery Method Room Air 12/02/23 17:11 Temperature 99.8 F H Temperature Source Oral Pulse Rate 92 Respiratory Rate 18 Respiratory Effort Respiratory Pattern Blood Pressure 115/62 Blood Pressure Mean 79 Blood Pressure Source Monitor Blood Pressure Position Semi-Fowlers Blood Pressure Location Left Arm Pulse Ox 93 Oxygen Delivery Method Room Air Weight Weight: 230 lb 6.129 oz Body Mass Index (BMI) 31.2 Physical Exam Narrative General: Alert, Oriented x2, Cooperative, No apparent distress HEENT: Atraumatic, PERRLA, EOMI, Normocephalic Oral: Moist Mucosa Neck: Supple, No JVD Lungs: Diminished, Normal air movement, No rhonchi, No wheeze, No rales Cardiovascular: Regular rate, Regular Rhythm, Normal S1, Normal S2, murmurs Abdomen: Soft, Non Tender, Non-Distended, No Hepato-splenomegaly Extremities: edema, Capillary Refill Less than 3 Seconds Skin: No rashes, No breakdown Musculoskeletal: No Tenderness to Palpation of Joints or Extremities Neurological: No focal neurological deficits, Motor Exam 5/5 strength throughout, Sensory exam intact to light touch and pain Psych/Mental Status: Normal Affect, Appropriate Results Lab / Micro Data 12/02/23 12:35 12/02/23 12:53 Labs: Laboratory Results - last 24 hr 12/02/23 12:35: WBC 8.9, RBC 4.13 L, Hgb 12.3 L, Hct 39.3 L, MCV 95.2 H, MCH 29.8, MCHC 31.3 L, RDW Std Deviation 52.5 H, RDW Coeff of Angelia 15.0 H, Plt Count 125 L, MPV 11.4, Immature Gran % (Auto) 0.600, Neut % (Auto) 83.1 H, Lymph % (Auto) 11.5 L, Hooker % (Auto) 4.1, Eos % (Auto) 0.5, Baso % (Auto) 0.2, Absolute Neuts (auto) 7.4, Absolute Lymphs (auto) 1.02, Nucleated RBC % 0, PT Cancelled, INR Cancelled, APTT Cancelled 12/02/23 12:53: PT 15.1 H, INR 1.2, APTT 34.4, Sodium 134 L, Potassium 3.8, Chloride 100, Carbon Dioxide 29.0, Anion Gap 5, BUN 15, Creatinine 1.06, Estim Creat Clear Calc 63.01, Est GFR (MDRD) Af Amer 85, Est GFR (MDRD) Non-Af 70, BUN/Creatinine Ratio 14.2, Glucose 134 H, Lactic Acid 2.1 H*, Calcium 9.6, Troponin I High Sens 912 H* 12/02/23 14:36: Urine Color Yellow, Urine Clarity Sl. Cloudy, Urine pH 7.0, Ur Specific Henning 1.010, Urine Protein 15 H, Urine Glucose (UA) Normal, Urine Ketones Negative, Urine Occult Blood 50 H, Urine Nitrite Negative, Urine Bilirubin Negative, Urine Urobilinogen Normal, Ur Leukocyte Esterase 100 H, Urine RBC 0-5 SEEN, Urine WBC 10-25 SEEN, Ur Squamous Epith Cells 0 SEEN, Urine Bacteria 1+, Urine Mucus 0 SEEN 12/02/23 16:17: Troponin I High Sens 829 H* Micro: Microbiology 12/02/23 13:30 Mucosa - Nose SARS-CoV-2, Influenza & RSV (PCR) - Final ABG Data ABG results: ABG 12/02/23 15:04 Specimen Type ART Sample Site R Radial pH 7.48 H Bicarbonate Actual 24.6 Total CO2 26 Base Excess 1 O2 Saturation 93 L O2 % 21.0 ABG pCO2 33.1 L ABG pO2 62 L Bj Test Positive O2 Delivery Device Room Air Vent Mode Not entered Imaging Radiology Impression Chest X-Ray 12/02/23 13:25 IMPRESSION: Mild degree of vascular congestion with mild increased markings in the left midlung and left lower lobe. Electronically Signed: Charbel Aguayo MD at 14:20 EDT , Brain CT 12/02/23 14:42 IMPRESSION: Chronic involutional changes of the brain. Electronically Signed: Charbel Aguayo MD at 15:48 EDT Reading Location ID and State: [address] [place] [address] , Service support , Assessment & Plan Assessment/Plan (1) Non-STEMI (non-ST elevated myocardial infarction): (2) Urinary tract infection: PLAN: Plan 1. Non-STEMI/A-fib/aortic stenosis/CAD status post stent/HLD ? Will hold his Eliquis and transition to heparin drip ? Will consult cardiology ? Initial troponin was over 900 will obtain serial troponins, EKG was nonischemic ? Continue with aspirin and Lipitor and Zetia 2. UTI with possible pneumonia with metabolic encephalopathy ? Not septic ? Urine cultures are pending ? Continue with Rocephin and azithromycin 3. GERD ? Stable ? Continue with his home medications 4. Iron deficiency anemia ? Stable ? Continue with his iron supplement 5. BPH ? Stable ? Continue with his home medications 6. Glaucoma ? Stable ? Continue with his home eyedrops DVT: Heparin drip 75 minutes was spent on direct patient care, including documentation as well as chart review and collaboration with colleagues Charges/Coding Visit Charges Inpatient E&M: 31182 Init Hosp L3 12/02/231814 <Electronically signed by Miguelito Laguna MD> Cosigner Signature (if applicable): CC: Dr. Addi Mario MD; Dr. Miguelito Laguna MD~ Signed [facility] Work Phone: [phone]) [phone] Discharge summary Author Antonio James [facility] December 02, 2023 5:58pm Note Date/Time December 02, 2023 1:1 2pm [facility] Medical Records Department [address] [place] [address] Emergency Department Summary 12/02/23 MR#: [id number] Acct: [id number] Name: JESSEE RUST Rep #:[id number] : 1935 88 From: Antonio Taylor PCP: Dr. Addi Mario MD Status:A DM IN Location: [address] History of Present Illness Chief Complaint: Flank Pain Informant: patient Onset/Context/Timing Onset: Yesterday Context: Gradual Onset Timing: Continuous Quality: Aching, and tightness Location: Low back and chest Worsened by: Nothing Relieved by: Tylenol, nitroglycerin Narrative Narrative: Patient presents with back pain and chest pain that began yesterday. Patient describes the pain is aching in his low back. Patient describes his chest pain as a tight band around his chest. Patient states he took nitroglycerin which seemed to help with his chest pain. Patient states he also took Tylenol which helped with his back pain. Patient states nothing makes his pain worse. Patient admits to some chills. Patient admits to some cough and shortness of breath. Patient denies any nausea or vomiting. Patient denies any bowel or bladder changes. Patient denies any saddle anesthesia. [facility] Medical History Advanced directives, counseling/discussion Anemia Anginal equivalent Aortic stenosis Asthma Atherosclerosis of coronary artery of [place] heart without angina pectoris BPH (benign prostatic hyperplasia) Bradycardia Cholelithiasis without obstruction Closed vertical fracture of left patella Degenerative disc disease, cervical Dermatitis Dizziness Essential hypertension Extensor tenosynovitis of right wrist Fall Fracture of triquetrum of left wrist Fracture of triquetrum of right wrist Glaucoma History of colon polyps History of pneumonia History of skin cancer Hyperlipidemia Hyponatremia Iron deficiency anemia Left facial swelling Liver disease Memory impairment Multiple fractures New onset atrial fibrillation Nonrheumatic aortic valve stenosis Obesity Orthostatic hypotension Osteoarthritis Paroxysmal atrial fibrillation Physical debility Primary biliary cirrhosis Psoriasis Restrictive airway disease Rheumatoid arthritis Right foot pain Seasonal allergies Sinus bradycardia Thrombocytopenia Vitamin D deficiency Home Medications aspirin 81 mg tablet,delayed release 81 mg PO DAILY@0800 [facility] 12/06/16 [History Last Taken 12/02/23] travoprost 0.004 % eye drops 1 drp EACH EYE QHS glaucoma 06/02/19 [History Last Taken 06/06/20] magnesium oxide (Cornejo) 1,500 mg PO QHS 08/05/20 [History Last Taken 12/01/23] cholecalciferol (vitamin D3) 50 mcg (2,000 unit) tablet 50 mcg PO DAILY 11/19/20[History Last Taken 12/01/23] cyanocobalamin (vitamin B-12) 1,000 mcg capsule 1,000 mcg PO DAILY 11/19/20 [History Last Taken 12/01/23] Disability Placard #1 ea 12/01/21 [Rx Last Taken Unknown] Arthritis Compound 1 click topical DAILY PRN Pain #60 CLICKS 02/08/22 [Rx Last Taken Unknown] cetirizine 10 mg capsule 10 mg PO DAILY PRN allergy 10/05/22 [History Last Taken 12/01/23] apixaban 5 mg tablet (Eliquis) 5 mg PO BID #60 tabs 12/08/22 [Rx Last Taken 12/02/23] albuterol sulfate 90 mcg/actuation aerosol inhaler (Ventolin HFA) 2 puff inhalation Q4H PRN Asthma #8.5 grams 04/28/23 [Rx Last Taken Unknown] nebulizer and compressor (Portable Nebulizer System) #1 ea 04/30/23 [Rx Last Taken Unknown] guaifenesin 1,200 mg tablet, extended release 12 hr 1,200 mg PO Q12H #60 tabs 06/29/23 [Rx Last Taken 12/02/23] atorvastatin 20 mg tablet 20 mg PO QHS cholesterol #90 tabs 07/07/23 [Rx Last Taken 12/01/23] ursodiol 500 mg tablet See Rx Instructions .Route .COMPLEX #180 tabs 08/03/23 [Rx Last Taken 12/02/23] famotidine 20 mg tablet 20 mg PO DAILY #90 tabs 08/10/23 [Rx Last Taken 12/02/23] brimonidine 0.1 % eye drops 1 drp ophthalmic (eye) DAILY 08/15/23 [History Last Taken 12/02/23] budesonide-formoterol HFA 160 mcg-4.5 mcg/actuation aerosol inhaler (Symbicort) 2 puff inhalation BID 08/15/23 [History Last Taken 12/02/23] finasteride 5 mg tablet 5 mg PO DAILY #90 tabs 08/18/23 [Rx Last Taken 12/02/23] ezetimibe 10 mg tablet 10 mg PO DAILY heart health #90 tabs 09/15/23 [Rx Last Taken 12/02/23] nitroglycerin 0.4 mg sublingual tablet 0.4 mg sublingual Q5-15M PRN chest pain #25 tabs 09/15/23 [Rx Last Taken Unknown] ferrous sulfate 325 mg (65 mg iron) tablet 325 mg PO QODAY #90 tabs 11/23/23 [Rx Last Taken 12/01/23] bqrveldc-bzm-uptwr acid 0.4 mg-lycopene 300 mcg-lutein 250 mcg tablet (Centrum Silver) 1 tab PO DAILY 12/02/23 [History Last Taken 12/01/23] netarsudil 0.02 %-latanoprost 0.005 % eye drops (Rocklatan) 1 drp ophthalmic (eye) QHS 12/02/23 [History Last Taken 12/02/23] Allergy/AdvReac Type Severity Reaction Status Date / Time metoprolol [From Lopressor] Allergy Intermediate Shortness Verified 10/20/23 09:49 of breath Penicillins Allergy Rash Verified 10/20/23 09:49 Family History Father Hypertension Grandmother Hypertension Other Alcoholism Liver disease Surgical History History of appendectomy History of cataract extraction History of colon resection History of partial colectomy (~2003) Presence of stent in coronary artery Social History Smoking Status: Never smoker alcohol intake: current alcohol intake frequency: holidays/special occasions only substance use type: does not use caffeine: No what type of physical activity do you participate in: weight training ROS ROS ED Constitutional Constitutional ED: Reports chills; Denies fever(s) Eyes Eyes: Denies blurry vision or change in vision ENT ENT ED: Denies rhinorrhea or sore throat Cardiovascular Cardiovascular: Reports chest pain; Denies palpitations Respiratory/Chest Respiratory/Chest: Reports cough and dyspnea Gastrointestinal Gastrointestinal: Reports constipation; Denies nausea or vomiting Genitourinary Genitourinary ED: Denies dysuria or hematuria Musculoskeletal Musculoskeletal: Reports back pain; Denies neck pain Integumentary Reports rash; Denies abscess Neurologic Neurologic: Denies headache(s) or weakness Allergic/Immunologic Allergic/Immunologic ED: Denies mouth swelling or urticaria EXAM Physical Exam Const Vital Signs: 12/02/23 12:31 Temperature 97.2 F L Temperature Source Temporal Pulse Rate 60 Respiratory Rate 18 Blood Pressure 133/83 H Blood Pressure Mean 99 Pulse Ox 92 Oxygen Delivery Method Room Air Positive well nourished, well developed and obese General Appearance ED: well developed and NAD Nutritional Appearance: obese HEENT Reports moist mucous membranes Neck supple and no JVD Chest Wall inspection of chest normal and palpation of chest normal Resp normal respiratory effort Auscultation: diminished lung sounds Cardio regular rate and regular rhythm GI non-tender and non-distended Palpation: soft Back/Spine no CVA tenderness Neuro oriented x3, CN's II-XII intact bilaterally and no sensory deficits noted Sensorium / Orientation: alert Motor Exam: strength 5/5 throughout Psych mental status grossly normal MDM MDM MDM Narrative Medical decision making narrative: Differential diagnosis includes cardiac dysrhythmia, cardiac ischemia, pneumonia, pneumothorax, sepsis, viral infection, urinary tract infection, and lumbosacral strain. EKG will be obtained to assess for cardiac dysrhythmia and cardiac ischemia. Chest x-ray will be obtained to assess for pneumonia and pneumothorax. Troponin will be obtained to assess for leukocytosis and anemia. Basic metabolic profile will be obtained to assess for electrolyte abnormality and renal function. PT with INR and PTT will be obtained to assess for coagulopathy. Lactate will be obtained to assess for sepsis. Urinalysis will be obtained to assess for urinary tract infection. COVID-19, influenza, and RSVwill be obtained to assess for viral infection. Urine culture will be obtained to assess for urinary tract infection. Blood cultures will be obtained to assess for sepsis. Lab Data Attestation: I reviewed the patient's lab results. Lab results narrative: CBC was reviewed. White blood cell count was normal at 8.9. Hemoglobin was slightly low at 12.3 and hematocrit is 39.3. Platelets were slightly low at 125. These are consistent with prior results. PT with INR and PTT were reviewed. Pro time was slightly elevated at 15.1. INR is 1.2. PTT was normal at 34.4. Basic metabolic profile was reviewed. Sodium was slightly low at 134. Glucose was slightly elevated at 134. Remainder is within normal limits. High-sensitivity troponin was reviewed and was elevated at 912. Serum lactate was reviewed and was slightly elevated at 2.1. Arterial blood gas was reviewed. pH was 7.48, bicarb was 24.6, CO2 was 26, pCO2 was 33.1 and pO2 was 62. Oxygensaturation 93% on room air. COVID-19 PCR was reviewed and was negative. Influenza PCR was reviewed and was negative for influenza A and influenza B. RSV PCR was reviewed and was negative. Urinalysis was reviewed. Leukocyte esterase was 100. There were 10-25 white blood cells and 1+ bacteria. Radiography Chest X-Ray - ED: Left Infiltrate Diagnostic Testing: CT scan of the brain was obtained. There is no acute intracranial abnormality. This was interpreted by the radiologist and was also independently reviewed by myself. Portable chest x-ray was obtained. There is 1 view. On my independent interpretation, there is some vascular congestion with increased markings in the left midlung and left lower lobe. Bony thorax is normal. There is mild cardiomegalynoted. Radiologist also interpreted the x-ray and agrees. EKG Initial EKG: Attestation: I personally reviewed and interpreted this EKG as follows: Interpretation: Atrial Fibrillation (95) Comments: EKG was obtained. On my independent interpretation, it shows atrial fibrillation with a rate of 95. QRS interval was normal at 76. QTc interval was normal at 452 ms. Hardy was borderline left axis deviation at -25. There are no acute ST or T wave changes noted. Prior EKG tracings: available for review Prior: Unchanged Management Discussion w/another healthcare provider: Hospitalist and Avionic Technician Treatment and Re-Evaluation :: On reevaluation, patient was acting more confused and was not making sense when he was talking. Patient's temperature was noted to be 103.1. Patient was givenTylenol. Because of this, arterial blood gas was added to assess for hypercarbia. CT scan of the brain was obtained to assess for stroke and intracranial bleeding. Patient was given a dose of Tylenol. Patient was started on heparin. Patient was also started on Rocephin and Zithromax. Case was discussed with the hospitalist. Will admit the patient to PCU. Case was also discussed with Dr. Simmons from cardiology. He had no further recommendations. Critical Care Time Critical Care Time: Yes Critical care time (excluding procedures): 30-74 minutes (36), Including time spent:, Discussing w/Patient &/or Family/Water Registrar, Discussing w/Consultants, Arranging Admission or Transfer and Performing Direct Patient Care at Bedside Discharge Plan Triage Chief Complaint: Flank Pain ED Provider: Antonio James Dx/Rx/DC Orders Clinical Impression: Non-STEMI (non-ST elevated myocardial infarction), Urinary tract infection, Sepsis Prescriptions: No Action magnesium oxide [Cornejo] 500 mg tablet 1,500 mg PO QHS cyanocobalamin (vitamin B-12) 1,000 mcg capsule 1,000 mcg PO DAILY cholecalciferol (vitamin D3) 50 mcg (2,000 unit) tablet 50 mcg PO DAILY guaifenesin 1,200 mg tablet extended release 12hr 1,200 mg PO Q12H Qty: 60 6RF budesonide-formoterol [Symbicort] 160-4.5 mcg/actuation HFA aerosol inhaler 2 puff inhalation BID Rx Instructions: administer with spacer, rinse mouth after each use brimonidine 0.1 % drops 1 drp ophthalmic (eye) DAILY Rx Instructions: instill 1 drop into both eyes twice a day albuterol sulfate [Ventolin HFA] 90 mcg/actuation HFA aerosol inhaler 2 puff INHALATION Q4H PRN (Reason: Asthma) Qty: 8.5 2RF aspirin 81 MG tablet 81 mg PO DAILY@0800 travoprost 1 DROP bottle 1 drp EACH EYE QHS cetirizine 10 mg capsule 10 mg PO DAILY PRN (Reason: allergy) Centrum Silver 0.4 mg-300 mcg- 250 mcg tablet 1 tab PO DAILY Rocklatan 0.02-0.005 % drops 1 drp ophthalmic (eye) QHS Rx Instructions: INSTILL 1 DROP INTO EACH EYE AT BEDTIME (DME) Disability Placard See Rx Instructions .Route .MEDSUPPLY Qty: 1 0RF Rx Instructions: Expires 12/01/2026 Arthritis Compound 1 click TOPICAL DAILY PRN (Reason: Pain) Qty: 60 1RF Rx Instructions: Diclofenac 3%, Lidocaine 3%, Baclofen 2% 1 click=o.25g 1 click topical daily 60 click tube Eliquis 5 mg tablet 5 mg PO BID Qty: 60 11RF (DME) nebulizer and compressor [Portable Nebulizer System] Device See Rx Instructions .Route Qty: 1 0RF Rx Instructions: As directed atorvastatin 20 mg tablet 20 mg PO QHS Qty: 90 3RF ursodiol 500 mg tablet See Rx Instructions .ROUTE .COMPLEX Qty: 180 3RF Dose Instruction: take 1 tablet by mouth twice a day with meals FOR LIVER DISEASE Rx Instructions: take 1 tablet by mouth twice a day with meals FOR LIVER DISEASE famotidine 20 mg tablet 20 mg PO DAILY Qty: 90 3RF finasteride 5 mg tablet 5 mg PO DAILY Qty: 90 3RF nitroglycerin 0.4 mg tablet, sublingual 0.4 mg SUBLINGUAL Q5-15M PRN (Reason: chest pain) Qty: 25 3RF ezetimibe 10 mg tablet 10 mg PO DAILY Qty: 90 3RF ferrous sulfate 325 mg (65 mg iron) tablet 325 mg PO QODAY Qty: 90 2RF Primary Care Provider: Addi Mario Referrals: Addi Maroi MD [Primary Care Provider] - Disposition Disposition: Acute Care Hospital [facility] What to do if you have Problems For any increased pain, shortness of breath, bleeding, nausea or vomiting, chestpain, or any unexpected problems, contact your Primary Care Provider. Call [facility] ([phone]) or report to the closest Emergency Room. Call 911 if necessary. 12/02/23 1480 <Electronically signed by Antonio James DO> Cosigner Signature (if applicable): CC: Dr. Addi Mario MD ~ Signed [facility] Work Phone: 1(687) 968-543202-19-2024 Miscellaneous Notes* Addendum Note - Shawn Shea MD - 11/07/2023 3:03 PM ESTAddended by: SHAWN SHEA on: 11/07/2023 03:03 PM Modules accepted: [facility] Instructions* Patient Instructions* Shawn Shea MD - 11/07/2023 2:56 PM EST You will be dilated on your next visit. This will likely make your vision blurry for several hours, and you should strongly consider bringing a cattle driver. documented [facility]02-[facility] History of Present illness Narrative* Shawn Shea MD - 11/07/2023 2:52 PM EST New from [place] Tmax: <22; Pachy: -, - Lasers and [...] agents both eyes - baseline visual field with severe loss - goal <= 14 both eyes - follow 6 months, dilate, OCT retinal nerve fiber layer # Pseudophakia both eyes - stable # [...] and plan as stated above and agree withall of its relevant components. Shawn Shea MD documented [facility]12-15-2023 Miscellaneous Notes* Telephone Encounter - Xenia Guillen - 09/02/2023 4:45 PM EST Email from Shawn Mcguire Melissa Subconjunctival hemorrhage is benign. It s a bruise in the whites of the eye. If no vision change, it s ok. Can use refresh artificial tears for irritation Called pt and passed on messaged He will keep his appt with Dr. Saleh * Telephone Encounter - Xenia Guillen - 09/02/2023 2:59 PM EST Spoke to pt again, explained about appt with Dr. Saleh. Asked about new symptoms, eye feels a bit irritated, and light sensitivity is only when he was outside in the sunlight not in the house. He was concerned about waiting until Tuesdays, but he did not want to drive to main campus. Explained he could go to [facility] or Emergency Room if he felt he needed to . * Telephone Encounter - Xenia Guillen - 09/02/2023 2:18 PM EST Pt called back with new symptoms, eye is irritated and sensitive to the light outside. Spoke with Zaida, second floor appt desk found appt in [place] for him on 09-06. * Telephone Encounter - Xenia Guillen - 09/02/2023 10:43 AM EST Images from the original note were not included. Pt photo * Telephone Encounter - Xenia Guillen - 09/02/2023 9:12 AM EST Left eye, appears to have blood in in coming from the pupil going down. Has not affected vision. Nopain. Had slight headache last night. No other symptoms Fv 11-07-23 Assessment & Plan Shawn Shea MD filed at 07/04/2023 2:28 PM Status: Signed New from [place] Tmax: <22; Pachy: -, - Lasers and Surgeries: OD: CEIOL OS: 11/2022 Selected laser trabeculoplasty (SLT) Selected laser trabeculoplasty (SLT) previous yrs CEIOL Ocular Medication Intol and Non-efficacy: Bradycardia = BB Now on alphagan 2/2, rocklatan / -HVF 06/2023 OD [place] OS sparing [...] both eyes - stable documented [facility]10[facility] History of Present illness Narrative* Shawn Shea MD - 07/04/2023 3:45 PM EDT New from [place] Tmax: <22; Pachy: -, - Lasers and [...] and plan as stated above and agree withall of its relevant components. Shawn Shea MD documented [facility]09-13-[facility] History of Present illness Narrative* Shawn Shea MD - 06/01/2023 1:35 PM EDT New from Tmax: <22; Pachy: -, - Lasers and Surgeries: OD: CEIOL OS: 11/2022 Selected laser trabeculoplasty (SLT) Selected laser trabeculoplasty (SLT) previous yrs CEIOL Ocular Medication Intol and Non-efficacy: Bradycardia = BB Now on alphagan 2/2, rocklatan 1/ -HVF - OD OS -OCT 05/2023 OD [...] and plan as stated above and agree withall of its relevant components. Shawn Shea MD documented in [facility] encounterM[facility]08-04-2023 Discharge summary [facility] April 22, 2023 10:17pm Note Date/Time April 22, 2023 8:[address] [facility] Medical Records Department [address] [place] [address] Emergency Department Summary 04/22/23 MR#: [id number] Acct: [id number] Name: JESSEE RUST Rep #:[id number] : 1935 88 From: Marisol LUEVANO PCP: Dr. Addi Mario MD Status:R ER Location: ED HPI <BASSEM Soria - Last Filed: 04/22/23 22:01> History of Present Illness Chief Complaint: Cough Narrative Narrative: Patient presenting today with a dry cough, chills, and overall just not feeling well that he has had for the past 2 days. He took a rapid COVID test at home today but is unsure if it was positive or negative as he has a hard time readingthe test. He reports a history of asthma. He denies any shortness of breath, chest pain, abdominal pain, nausea, and vomiting. [facility] <BASSEM Soria - Last Filed: 04/22/23 22:01> [facility] Medical History Advanced directives, counseling/discussion Anemia Anginal equivalent Aortic stenosis Asthma Atherosclerosis of coronary artery of [place] heart without angina pectoris BPH (benign prostatic hyperplasia) Bradycardia Cholelithiasis without obstruction Closed vertical fracture of left patella Degenerative disc disease, cervical Dermatitis Dizziness Essential hypertension Extensor tenosynovitis of right wrist Fall Fracture of triquetrum of left wrist Fracture of triquetrum of right wrist Glaucoma History of colon polyps History of pneumonia History of skin cancer Hyperlipidemia Hyponatremia Iron deficiency anemia Left facial swelling Liver disease Memory impairment Multiple fractures New onset atrial fibrillation Nonrheumatic aortic valve stenosis Obesity Orthostatic hypotension Osteoarthritis Physical debility Primary biliary cirrhosis Psoriasis Restrictive airway disease Rheumatoid arthritis Right foot pain Seasonal allergies Sinus bradycardia Thrombocytopenia Vitamin D deficiency Home Medications aspirin 81 mg tablet,delayed release 81 mg PO DAILY@0800 heart health 12/06/16 [History Last Taken 06/06/20] travoprost 0.004 % eye drops 1 drp EACH EYE QHS glaucoma 06/02/19 [History Last Taken 06/06/20] acetaminophen 325 mg tablet 650 mg (2 x 325 mg) PO Q6H PRN PRN Pain Score 1- 10/Temp > 100.7 F 06/09/20 [Rx Last Taken Unknown] multivitamin 1 cap PO DAILY 07/24/20 [History Last Taken Unknown] magnesium oxide 500 mg tablet (Cornejo) 1,500 mg PO QHS 08/05/20 [History Last Taken Unknown] cholecalciferol (vitamin D3) 50 mcg (2,000 unit) tablet 50 mcg PO DAILY 11/19/20[History Last Taken Unknown] cyanocobalamin (vitamin B-12) 1,000 mcg capsule 1,000 mcg PO DAILY 11/19/20 [History Last Taken Unknown] finasteride 5 mg tablet 5 mg PO DAILY 11/19/20 [History Last Taken Unknown] methylcellulose (with sugar) oral powder (Citrucel (sucrose) oral powder) 1 tbspPO DAILY PRN Constipation 02/03/21 [History Last Taken Unknown] netarsudil 0.02 % eye drops 1 drp ophthalmic (eye) DAILY glaucoma 02/03/21 [History Last Taken Unknown] albuterol sulfate 90 mcg/actuation aerosol inhaler (Ventolin HFA) 2 puff inhalation Q4H PRN Asthma #8.5 grams 08/06/21 [Rx Last Taken Unknown] Disability Placard #1 ea 12/01/21 [Rx Last Taken Unknown] Arthritis Compound 1 click topical DAILY PRN Pain #60 CLICKS 02/08/22 [Rx Last Taken Unknown] ferrous sulfate 325 mg (65 mg iron) tablet 325 mg PO QODAY #90 tabs 06/28/22 [Rx Last Taken Unknown] atorvastatin 20 mg tablet 20 mg PO QHS cholesterol #90 tabs 07/19/22 [Rx Last Taken Unknown] nitroglycerin 0.4 mg sublingual tablet 0.4 mg sublingual Q5-15M PRN chest pain #25 tabs 07/28/22 [Rx Last Taken Unknown] budesonide-formoterol HFA 160 mcg-4.5 mcg/actuation aerosol inhaler (Symbicort) 2 puff inhalation DAILY 08/04/22 [History Last Taken Unknown] famotidine 20 mg tablet 20 mg PO DAILY #90 tabs 08/09/22 [Rx Last Taken Unknown] ursodiol 500 mg tablet 500 mg PO BIDCM liver disease #180 tabs 08/09/22 [Rx Last Taken Unknown] ezetimibe 10 mg tablet 10 mg PO DAILY heart health #90 tabs 09/15/22 [Rx Last Taken Unknown] cetirizine 10 mg capsule 10 mg PO DAILY PRN allergy 10/05/22 [History Last Taken Unknown] apixaban 5 mg tablet (Eliquis) 5 mg PO BID #60 tabs 12/08/22 [Rx Last Taken Unknown] dorzolamide 2 % eye drops 1 drp ophthalmic (eye) 12/29/22 [History Last Taken Unknown] erythromycin 5 mg/gram (0.5 %) eye ointment gm ophthalmic (eye) 12/29/22 [History Last Taken Unknown] rocklan EACH EYE 12/29/22 [History Last Taken Unknown] prednisone 5 mg tablets in a dose pack 5 mg PO DIRECTED right wrist extensor tenosyno #21 tabs 01/24/23 [Rx Last Taken Unknown] clobetasol 0.05 % topical cream 1 applic topical DAILY PRN rash #60 grams 03/24/23 [Rx Last Taken Unknown] Allergy/AdvReac Type Severity Reaction Status Date / Time metoprolol [From Lopressor] Allergy Intermediate Shortness Verified 04/22/23 20:21 of breath Penicillins Allergy Rash Verified 04/22/23 20:21 Family History Father Hypertension Grandmother Hypertension Other Alcoholism Liver disease Surgical History History of appendectomy History of cataract extraction History of colon resection History of partial colectomy (~2003) Presence of stent in coronary artery Social History Smoking Status: Never smoker alcohol intake: current alcohol intake frequency: holidays/special occasions only substance use type: does not use caffeine: No what type of physical activity do you participate in: weight training ROS <BASSEM Soria - Last Filed: 04/22/23 22:01> ROS ED Constitutional Constitutional ED: Denies chills or fever(s) Cardiovascular Cardiovascular: Denies chest pain or palpitations Respiratory/Chest Respiratory/Chest: Reports cough; Denies dyspnea, dyspnea on exertion, tachypneaor wheezing Gastrointestinal Gastrointestinal: Denies abdominal pain, nausea or vomiting Genitourinary Genitourinary ED: Denies dysuria, hematuria or urinary urgency Musculoskeletal Musculoskeletal: Denies arthralgias or myalgias Integumentary Denies abscess, Abrasions or rash Neurologic Neurologic: Denies confusion, dizziness or paresthesias EXAM <BASSEM Soria - Last Filed: 04/22/23 22:01> Physical Exam Const Vital Signs: 04/22/23 20:18 04/22/23 20:55 Temperature 98.6 F Temperature Source Temporal Pulse Rate 83 Respiratory Rate 18 Respiratory Effort Non-Labored Blood Pressure 146/90 H Blood Pressure Mean 108 Pulse Ox 96 Oxygen Delivery Method Room Air Positive well nourished, well developed and no apparent distress General Appearance ED: well developed HEENT Reports normocephalic and head/scalp atraumatic Mouth ED: Yes moist mucous membranes normal Eyes PERRL and EOMs intact bilaterally Neck full ROM and supple Chest Wall inspection of chest normal Resp normal respiratory effort and clear to auscultation bilaterally Resp Narrative: Crackles at the lung bases bilaterally. Cardio regular rate and regular rhythm GI soft to palpation, non-tender, non-distended and no masses Back/Spine normal ROM and normal to inspection Extremity normal to inspection and full ROM Neuro oriented x3, CN's II-XII intact bilaterally, moves all extremities, no focal motor deficits and no sensory deficits noted Sensorium / Orientation: awake and alert Psych mental status grossly normal and thought process normal Skin no rashes or lesions noted and no wounds <Dr. Heber Miranda MD - Last Filed: 04/22/23 22:17> Physical Exam Const Vital Signs: 04/22/23 20:18 04/22/23 20:55 Temperature 98.6 F Temperature Source Temporal Pulse Rate 83 Respiratory Rate 18 Respiratory Effort Non-Labored Blood Pressure 146/90 H Blood Pressure Mean 108 Pulse Ox 96 Oxygen Delivery Method Room Air MDM <BASSEM Soria - Last Filed: 04/22/23 22:01> [facility] Narrative Medical decision making narrative: Patient presenting today due to a dry cough, chills, just not feeling well for the past 2 days. He is well-appearing and in no acute distress, vitals are unremarkable. He does not feel short of breath, he is not experiencing any chest pain. He was sent in by his PCP with concerns that he could have COVID darya took a COVID test earlier but was unable to interpret the result and was not sure if it was positive or not. He has a history of asthma but overall his lungs sound clear aside from slight crackles at the bases. He took a breathing treatment prior to arriving and does not feel that he needs one at this time. Chest x-ray will be obtained to rule out infiltrate and rapid COVID and flu willbe obtained. Radiography X-Ray: Read by ED Physician and Read by Radiologist Diagnostic Testing: Clinical Impression(s) from Imaging Studies Chest X-Ray 04/22/23 21:08 IMPRESSION: Mild basilar atelectasis. Electronically Signed: Mehran Apple DO at 21:22 EDT Reading Location ID and State: [facility] / [place] Tel [phone], Service support , <Dr. Heber Miranda MD - Last Filed: 04/22/23 22:17> [facility] Narrative Medical decision making narrative: Patient presenting today due to a dry cough, chills, just not feeling well for the past 2 days. He is well-appearing and in no acute distress, vitals are unremarkable. He does not feel short of breath, he is not experiencing any chest pain. He was sent in by his PCP with concerns that he could have COVID darya took a COVID test earlier but was unable to interpret the result and was not sure if it was positive or not. He has a history of asthma but overall his lungs sound clear aside from slight crackles at the bases. He took a breathing treatment prior to arriving and does not feel that he needs one at this time. Chest x-ray will be obtained to rule out infiltrate and rapid COVID and flu willbe obtained. Patient's COVID was positive. We talked about the option of Paxlovid and the risks and benefits. He prefers not to start at this time and I think that is reasonable. I explained that he does have 5 days from onset of symptoms. If hehas further symptoms or gets worse he is welcome to return here or contact his physician about treatment. Radiography Diagnostic Testing: Clinical Impression(s) from Imaging Studies Chest X-Ray 04/22/23 21:08 IMPRESSION: Mild basilar atelectasis. Electronically Signed: Mehran Apple DO at 21:22 EDT Reading Location ID and State: [facility] / [place] Tel [phone], Service support , Treatment and Re-Evaluation :: I have personally performed a face to face assessment of the patient and have reviewed the RADHA Note. I performed a substantive portion of the visit including all aspects of the following. My villalobos findings include: History: Patient presents with cough. He states he coughs intermittently all the time due to asthma. For the last 2 days he has been coughing a little bit more. He had subjective fevers yesterday but none since. He has no productivity. He has wheezed a couple times and used his rescue inhaler. No chest pain. No hemoptysis. No nausea vomiting. No leg pain or swelling. Exam: Patient awake alert. Looks very comfortable in bed. Carries on normal conversation. HEENT is normal. Mucous membranes are moist. No swelling or exudates. Neck shows no JVD or stridor. Lungs actually sound good. There may be a few dry crackles on his first few breaths but they clear after deep breath. No wheezing. No rhonchi. No coughing even when I have him take a deep breath. Heart is regular. He does have a 2 out of 6 to 3 out of 6 systolic murmur but he states this is chronic. His abdomen is benign. He has no notable peripheraledema tenderness or asymmetry. Medical Decision Making: Patient was mostly concerned about COVID. COVID and flu testing is going to be done. We will do chest x-ray also. Discharge Plan Triage Chief Complaint: Cough ED Midlevel Provider: Marisol Crum ED Provider: Heber Miranda Dx/Rx/DC Orders Clinical Impression: COVID-19, History of asthma, Cough Instructions: Coronavirus Disease 2019 (COVID-19): Caring for Yourself or Others Prescriptions: No Action magnesium oxide [Cornejo] 500 mg tablet 1,500 mg PO QHS multivitamin capsule 1 cap PO DAILY Citrucel (sucrose) Powder 1 tbsp PO DAILY PRN (Reason: Constipation) finasteride 5 mg tablet 5 mg PO DAILY Patient Comments: take 1 tablet by mouth once daily cyanocobalamin (vitamin B-12) 1,000 mcg capsule 1,000 mcg PO DAILY cholecalciferol (vitamin D3) 50 mcg (2,000 unit) tablet 50 mcg PO DAILY budesonide-formoterol [Symbicort] 160-4.5 mcg/actuation HFA aerosol inhaler 2 puff inhalation DAILY Rx Instructions: administer with spacer, rinse mouth after each use dorzolamide 2 % drops 1 drp ophthalmic (eye) Patient Comments: instill 1 drop into both eyes twice a day rocklan EACH EYE erythromycin 5 mg/gram (0.5 %) ointment ophthalmic (eye) prednisone 5 mg tablets,dose pack 5 mg PO DIRECTED MDD per dose instructions Qty: 21 0RF Rx Instructions: see taper instructions clobetasol 0.05 % cream 1 applic TOPICAL DAILY PRN (Reason: rash) Qty: 60 2RF aspirin 81 MG tablet 81 mg PO DAILY@0800 travoprost 1 DROP bottle 1 drp EACH EYE QHS cetirizine 10 mg capsule 10 mg PO DAILY PRN (Reason: allergy) acetaminophen 325 MG tablet 650 mg PO Q6H PRN PRN (Reason: Pain Score 1-10/Temp > 100.7 F) 0RF netarsudil 0.02 % drops 1 drp ophthalmic (eye) DAILY albuterol sulfate [Ventolin HFA] 90 mcg/actuation HFA aerosol inhaler 2 puff INHALATION Q4H PRN (Reason: Asthma) Qty: 8.5 2RF (DME) Disability Placard See Rx Instructions .Route .MEDSUPPLY Qty: 1 0RF Rx Instructions: Expires 12/01/2026 Arthritis Compound 1 click TOPICAL DAILY PRN (Reason: Pain) Qty: 60 1RF Rx Instructions: Diclofenac 3%, Lidocaine 3%, Baclofen 2% 1 click=o.25g 1 click topical daily 60 click tube ferrous sulfate 325 mg (65 mg iron) tablet 325 mg PO QODAY Qty: 90 2RF atorvastatin 20 mg tablet 20 mg PO QHS Qty: 90 3RF nitroglycerin 0.4 mg tablet, sublingual 0.4 mg SUBLINGUAL Q5-15M PRN (Reason: chest pain) Qty: 25 3RF ursodiol 500 mg tablet 500 mg PO BIDCM Qty: 180 3RF famotidine 20 mg tablet 20 mg PO DAILY Qty: 90 3RF ezetimibe 10 mg tablet 10 mg PO DAILY Qty: 90 3RF Eliquis 5 mg tablet 5 mg PO BID Qty: 60 11RF Primary Care Provider: Addi Mario Referrals: Addi Mario MD [Primary Care Provider] - 1-2 Days if not improving Disposition Disposition: Home, Self Care What to do if you have Problems For any increased pain, shortness of breath, bleeding, nausea or vomiting, chestpain, or any unexpected problems, contact your Primary Care Provider. Call [facility] ([phone]) or report to the closest Emergency Room. Call 911 if necessary. 04/22/232200 <Electronically signed by Marisol LUEVANO> Cosigner Signature (if applicable): 04/22/232216 <Electronically signed by Heber Miranda MD> CC: Dr. Addi Mario MD ~ Signed [facility] Work Phone: 1(419) 728-158207-03-2023 Discharge summary Author Washington Evgeny [facility] March 21, 2023 10:46pm Note Date/Time March 21, 2023 10:44 pm [facility] Medical Records Department [address] [place] [address] [place] [address] Emergency Department Summary 03/21/23 MR#: [id number] Acct: [id number] Name: JESSEE RUST Rep #:[id number] : 1935 88 From: Washington Taylor PCP: Dr. Addi Mario MD Status:R EG ER Location: ED HPI History of Present Illness Chief Complaint: Nosebleed [facility] Medical History Advanced directives, counseling/discussion Anemia Anginal equivalent Aortic stenosis Asthma Atherosclerosis of coronary artery of [place] heart without angina pectoris BPH (benign prostatic hyperplasia) Bradycardia Cholelithiasis without obstruction Closed vertical fracture of left patella Degenerative disc disease, cervical Dermatitis Dizziness Essential hypertension Extensor tenosynovitis of right wrist Fall Fracture of triquetrum of left wrist Fracture of triquetrum of right wrist Glaucoma History of colon polyps History of pneumonia History of skin cancer Hyperlipidemia Hyponatremia Iron deficiency anemia Left facial swelling Liver disease Memory impairment Multiple fractures New onset atrial fibrillation Nonrheumatic aortic valve stenosis Obesity Orthostatic hypotension Osteoarthritis Physical debility Primary biliary cirrhosis Psoriasis Restrictive airway disease Rheumatoid arthritis Right foot pain Seasonal allergies Sinus bradycardia Thrombocytopenia Vitamin D deficiency Home Medications aspirin 81 mg tablet,delayed release 81 mg PO DAILY@0800 heart health 12/06/16 [History Last Taken 06/06/20] travoprost 0.004 % eye drops 1 drp EACH EYE QHS glaucoma 06/02/19 [History Last Taken 06/06/20] acetaminophen 325 mg tablet 650 mg (2 x 325 mg) PO Q6H PRN PRN Pain Score 1- 10/Temp > 100.7 F 06/09/20 [Rx Last Taken Unknown] multivitamin 1 cap PO DAILY 07/24/20 [History Last Taken Unknown] magnesium oxide 500 mg tablet (Cornejo) 1,500 mg PO QHS 08/05/20 [History Last Taken Unknown] cholecalciferol (vitamin D3) 50 mcg (2,000 unit) tablet 50 mcg PO DAILY 11/19/20[History Last Taken Unknown] cyanocobalamin (vitamin B-12) 1,000 mcg capsule 1,000 mcg PO DAILY 11/19/20 [History Last Taken Unknown] finasteride 5 mg tablet 5 mg PO DAILY 11/19/20 [History Last Taken Unknown] methylcellulose (with sugar) oral powder (Citrucel (sucrose) oral powder) 1 tbspPO DAILY PRN Constipation 02/03/21 [History Last Taken Unknown] netarsudil 0.02 % eye drops 1 drp ophthalmic (eye) DAILY glaucoma 02/03/21 [History Last Taken Unknown] clobetasol 0.05 % topical cream 1 applic topical DAILY PRN rash #60 grams 05/14/21 [Rx Last Taken Unknown] albuterol sulfate 90 mcg/actuation aerosol inhaler (Ventolin HFA) 2 puff inhalation Q4H PRN Asthma #8.5 grams 08/06/21 [Rx Last Taken Unknown] Disability Placard #1 ea 12/01/21 [Rx Last Taken Unknown] Arthritis Compound 1 click topical DAILY PRN Pain #60 CLICKS 02/08/22 [Rx Last Taken Unknown] ferrous sulfate 325 mg (65 mg iron) tablet 325 mg PO QODAY #90 tabs 06/28/22 [Rx Last Taken Unknown] atorvastatin 20 mg tablet 20 mg PO QHS cholesterol #90 tabs 07/19/22 [Rx Last Taken Unknown] nitroglycerin 0.4 mg sublingual tablet 0.4 mg sublingual Q5-15M PRN chest pain #25 tabs 07/28/22 [Rx Last Taken Unknown] budesonide-formoterol HFA 160 mcg-4.5 mcg/actuation aerosol inhaler (Symbicort) 2 puff inhalation DAILY 08/04/22 [History Last Taken Unknown] famotidine 20 mg tablet 20 mg PO DAILY #90 tabs 08/09/22 [Rx Last Taken Unknown] ursodiol 500 mg tablet 500 mg PO BIDCM liver disease #180 tabs 08/09/22 [Rx Last Taken Unknown] ezetimibe 10 mg tablet 10 mg PO DAILY heart health #90 tabs 09/15/22 [Rx Last Taken Unknown] cetirizine 10 mg capsule 10 mg PO DAILY PRN allergy 10/05/22 [History Last Taken Unknown] apixaban 5 mg tablet (Eliquis) 5 mg PO BID #60 tabs 12/08/22 [Rx Last Taken Unknown] dorzolamide 2 % eye drops 1 drp ophthalmic (eye) 12/29/22 [History Last Taken Unknown] erythromycin 5 mg/gram (0.5 %) eye ointment gm ophthalmic (eye) 12/29/22 [History Last Taken Unknown] rocklan EACH EYE 12/29/22 [History Last Taken Unknown] prednisone 5 mg tablets in a dose pack 5 mg PO DIRECTED right wrist extensor tenosyno #21 tabs 01/24/23 [Rx Last Taken Unknown] Allergy/AdvReac Type Severity Reaction Status Date / Time metoprolol [From Lopressor] Allergy Intermediate Shortness Verified 03/21/23 20:01 of breath Penicillins Allergy Rash Verified 03/21/23 20:01 Family History Father Hypertension Grandmother Hypertension Other Alcoholism Liver disease Surgical History History of appendectomy History of cataract extraction History of colon resection History of partial colectomy (~2003) Presence of stent in coronary artery Social History Smoking Status: Never smoker alcohol intake: current alcohol intake frequency: holidays/special occasions only substance use type: does not use caffeine: No what type of physical activity do you participate in: weight training EXAM Physical Exam Const Vital Signs: 03/21/23 19:55 Temperature 98 F Temperature Source Temporal Pulse Rate 54 L Respiratory Rate 18 Blood Pressure 167/65 H Blood Pressure Mean 99 Pulse Ox 97 Oxygen Delivery Method Room Air [facility] Narrative Medical decision making narrative: HISTORY OF PRESENT ILLNESS: 88-year-old male here with nosebleeding on Eliquis. States began earlier today then stopped and started again just before arrival. REVIEW OF SYSTEMS: Pertinent positives: Epistaxis Pertinent negatives: Chest pain, shortness of breath, lightheadedness or syncope PHYSICAL EXAM: Nursing triage notes reviewed, Vital signs reviewed Constitutional: please see mdm HENT: MMM, bleeding noted from right nares Eyes: Pupils equal round and reactive to light, Extraocular muscles intact Neck: No stridor, no JVD, full neck ROM Lungs: Clear to auscultation, No wheezing or rales. No increased work of breathing, no conversational dyspnea, no accessory muscle use, no nasal flaring. No respiratory distress noted Heart: Regular rate and rhythm, No murmurs, No rubs and No gallops, 2+ distal pulses (radial, femoral, posterior tibial) in all extremities Skin: No rash or lesions noted, no pallor noted MEDICAL DECISION MAKING: Chief Complaint: Epistaxis MDM Narrative: Patient was hemodynamically stable, afebrile, nontoxic-appearing. Active epistaxis from right nares. Epistaxis algorithm initiated. Initially told patient hold pressure for 10 minutes. After holding pressure extract the patient to blow his nose and applied topical vasoconstrictors. This led to cessation of bleeding. He is hemostatic. Did not require Rhino Rocket or othernasal tamponade. Gave strict return precautions follow-up instructions The patient and/or family, caregivers express understanding. The patient and/orfamily, caregivers agrees with the plan. Total critical care time today provided was at least 0 minutes. This excludes separately billable procedures. Critical care time (if documented) is secondary to the patient having high probability of clinically significant/life threatening deterioration in the patient's condition which required my urgent intervention. Shared decision making: I will have a discussion with the patient and or visitors regarding risk/benefits of further testing or admission. They will be made aware of of the risk/benefits inherent in this decision they will be given the opportunity to voice understanding. Discharge Plan Triage Chief Complaint: Nosebleed ED Provider: Washington Pepper Dx/Rx/DC Orders Clinical Impression: Epistaxis Instructions: ED Epistaxis (Adult) Prescriptions: No Action magnesium oxide [Cornejo] 500 mg tablet 1,500 mg PO QHS multivitamin capsule 1 cap PO DAILY Citrucel (sucrose) Powder 1 tbsp PO DAILY PRN (Reason: Constipation) finasteride 5 mg tablet 5 mg PO DAILY Patient Comments: take 1 tablet by mouth once daily cyanocobalamin (vitamin B-12) 1,000 mcg capsule 1,000 mcg PO DAILY cholecalciferol (vitamin D3) 50 mcg (2,000 unit) tablet 50 mcg PO DAILY clobetasol 0.05 % cream 1 applic TOPICAL DAILY PRN (Reason: rash) Qty: 60 2RF budesonide-formoterol [Symbicort] 160-4.5 mcg/actuation HFA aerosol inhaler 2 puff inhalation DAILY Rx Instructions: administer with spacer, rinse mouth after each use dorzolamide 2 % drops 1 drp ophthalmic (eye) Patient Comments: instill 1 drop into both eyes twice a day rocklan EACH EYE erythromycin 5 mg/gram (0.5 %) ointment ophthalmic (eye) prednisone 5 mg tablets,dose pack 5 mg PO DIRECTED MDD per dose instructions Qty: 21 0RF Rx Instructions: see taper instructions aspirin 81 MG tablet 81 mg PO DAILY@0800 travoprost 1 DROP bottle 1 drp EACH EYE QHS cetirizine 10 mg capsule 10 mg PO DAILY PRN (Reason: allergy) acetaminophen 325 MG tablet 650 mg PO Q6H PRN PRN (Reason: Pain Score 1-10/Temp > 100.7 F) 0RF netarsudil 0.02 % drops 1 drp ophthalmic (eye) DAILY albuterol sulfate [Ventolin HFA] 90 mcg/actuation HFA aerosol inhaler 2 puff INHALATION Q4H PRN (Reason: Asthma) Qty: 8.5 2RF (DME) Disability Placard See Rx Instructions .Route .MEDSUPPLY Qty: 1 0RF Rx Instructions: Expires 12/01/2026 Arthritis Compound 1 click TOPICAL DAILY PRN (Reason: Pain) Qty: 60 1RF Rx Instructions: Diclofenac 3%, Lidocaine 3%, Baclofen 2% 1 click=o.25g 1 click topical daily 60 click tube ferrous sulfate 325 mg (65 mg iron) tablet 325 mg PO QODAY Qty: 90 2RF atorvastatin 20 mg tablet 20 mg PO QHS Qty: 90 3RF nitroglycerin 0.4 mg tablet, sublingual 0.4 mg SUBLINGUAL Q5-15M PRN (Reason: chest pain) Qty: 25 3RF ursodiol 500 mg tablet 500 mg PO BIDCM Qty: 180 3RF famotidine 20 mg tablet 20 mg PO DAILY Qty: 90 3RF ezetimibe 10 mg tablet 10 mg PO DAILY Qty: 90 3RF Eliquis 5 mg tablet 5 mg PO BID Qty: 60 11RF Primary Care Provider: Addi Mario Referrals: Addi Mario MD [Primary Care Provider] - Activity Restrictions/Additional Instructions: Thank you for trusting us with your care today! Please follow the nosebleeding algorithm. If you develop nosebleeding please hold firm pressure at the very tip or soft part of your nose. Please do this for 10 to 15 minutes. If this does not stop bleeding blow your nose vigorously. This will remove any clots or blood that will block medicine from taking effect. At this time apply a generous amount of Afrin to your nose to stop bleeding. If this does not relieve your bleeding please return to the emergencydepartment immediately. Please return to the emergency department if your symptoms change or worsen. Please follow with your primary care physician for further outpatient evaluationand management. Disposition Disposition: Home, Self Care What to do if you have Problems For any increased pain, shortness of breath, bleeding, nausea or vomiting, chestpain, or any unexpected problems, contact your Primary Care Provider. Call [facility] ([phone]) or report to the closest Emergency Room. Call 911 if necessary. 03/21/23 6819 <Electronically signed by Washington Pepper DO> Cosigner Signature (if applicable): CC: Dr. Addi Mario MD ~ Signed [facility] Work Phone: 1([phone]) 476-861907-03-2023 Hospital Discharge instructions Additional Instructions Thank you for trusting us with your care today! Please follow the nosebleeding algorithm. If you develop nosebleeding please hold firm pressure at the very tip or soft part of your nose. Please do this for 10 to 15 minutes. If this does not stop bleeding blow your nose vigorously. This will remove any clots or blood that will block medicine from taking effect. At this time apply a generous amount of Afrin to your nose to stop bleeding. If this does not relieve your bleeding please return to the emergency department immediately. Please return to the emergency department if your symptoms change or worsen. Please follow with your primary care physician for further outpatient evaluation and management.[facility] Work Phone: [phone]) 341-440006-24-[address] Ferrera [facility] March 12, 2023 2:45pm Note Date/Time March 12, 2023 1:29 pm [facility] Medical Records Department [address] [place] [address] Emergency Department Summary 03/12/23 MR#: [id number] Acct: [id number] Name: JESSEE RUST Rep #:[id number] : 1935 88 From: Javier Ferrera MD PCP: Dr. Addi Mario MD Status:R EG ER Location: ED HPI History of Present Illness Chief Complaint: Palpitations Informant: patient Narrative Narrative: Patient states he has a history of paroxysmal atrial fibrillation as well as hypertension, he is on Eliquis. He has been feeling fine lately and today he felt a little nauseated and his Apple Watch told him he was in atrial fibrillation, so he comes right to the emergency department. He denies any chest discomfort, dyspnea, lightheadedness, palpitations. At this time he is asymptomatic. [facility] Medical History Advanced directives, counseling/discussion Anemia Anginal equivalent Aortic stenosis Asthma Atherosclerosis of coronary artery of [place] heart without angina pectoris BPH (benign prostatic hyperplasia) Bradycardia Cholelithiasis without obstruction Closed vertical fracture of left patella Degenerative disc disease, cervical Dermatitis Dizziness Essential hypertension Extensor tenosynovitis of right wrist Fall Fracture of triquetrum of left wrist Fracture of triquetrum of right wrist Glaucoma History of colon polyps History of pneumonia History of skin cancer Hyperlipidemia Hyponatremia Iron deficiency anemia Left facial swelling Liver disease Memory impairment Multiple fractures New onset atrial fibrillation Nonrheumatic aortic valve stenosis Obesity Orthostatic hypotension Osteoarthritis Physical debility Primary biliary cirrhosis Psoriasis Restrictive airway disease Rheumatoid arthritis Right foot pain Seasonal allergies Sinus bradycardia Thrombocytopenia Vitamin D deficiency Home Medications aspirin 81 mg tablet,delayed release 81 mg PO DAILY@0800 heart health 12/06/16 [History Last Taken 06/06/20] travoprost 0.004 % eye drops 1 drp EACH EYE QHS glaucoma 06/02/19 [History Last Taken 06/06/20] acetaminophen 325 mg tablet 650 mg PO Q6H PRN PRN Pain Score 1-10/Temp > 100.7 F006/09/20 [Rx Last Taken Unknown] multivitamin 1 cap PO DAILY 07/24/20 [History Last Taken Unknown] magnesium oxide 500 mg tablet (Cornejo) 1,500 mg PO QHS 08/05/20 [History Last Taken Unknown] cholecalciferol (vitamin D3) 50 mcg (2,000 unit) tablet 50 mcg PO DAILY 11/19/20[History Last Taken Unknown] cyanocobalamin (vitamin B-12) 1,000 mcg capsule 1,000 mcg PO DAILY 11/19/20 [History Last Taken Unknown] finasteride 5 mg tablet 5 mg PO DAILY 11/19/20 [History Last Taken Unknown] methylcellulose (with sugar) oral powder (Citrucel (sucrose) oral powder) 1 tbspPO DAILY PRN Constipation 02/03/21 [History Last Taken Unknown] netarsudil 0.02 % eye drops 1 drp ophthalmic (eye) DAILY glaucoma 02/03/21 [History Last Taken Unknown] clobetasol 0.05 % topical cream 1 applic topical DAILY PRN rash #60 grams 05/14/21 [Rx Last Taken Unknown] albuterol sulfate 90 mcg/actuation aerosol inhaler (Ventolin HFA) 2 puff inhalation Q4H PRN Asthma #8.5 grams 08/06/21 [Rx Last Taken Unknown] Disability Placard #1 ea 12/01/21 [Rx Last Taken Unknown] Arthritis Compound 1 click topical DAILY PRN Pain #60 CLICKS 02/08/22 [Rx Last Taken Unknown] ferrous sulfate 325 mg (65 mg iron) tablet 325 mg PO QODAY #90 tabs 06/28/22 [Rx Last Taken Unknown] atorvastatin 20 mg tablet 20 mg PO QHS cholesterol #90 tabs 07/19/22 [Rx Last Taken Unknown] nitroglycerin 0.4 mg sublingual tablet 0.4 mg sublingual Q5-15M PRN chest pain #25 tabs 07/28/22 [Rx Last Taken Unknown] budesonide-formoterol HFA 160 mcg-4.5 mcg/actuation aerosol inhaler (Symbicort) 2 puff inhalation DAILY 08/04/22 [History Last Taken Unknown] famotidine 20 mg tablet 20 mg PO DAILY #90 tabs 08/09/22 [Rx Last Taken Unknown] ursodiol 500 mg tablet 500 mg PO BIDCM liver disease #180 tabs 08/09/22 [Rx Last Taken Unknown] ezetimibe 10 mg tablet 10 mg PO DAILY heart health #90 tabs 09/15/22 [Rx Last Taken Unknown] cetirizine 10 mg capsule 10 mg PO DAILY PRN allergy 10/05/22 [History Last Taken Unknown] apixaban 5 mg tablet (Eliquis) 5 mg PO BID #60 tabs 12/08/22 [Rx Last Taken Unknown] dorzolamide 2 % eye drops 1 drp ophthalmic (eye) 12/29/22 [History Last Taken Unknown] erythromycin 5 mg/gram (0.5 %) eye ointment gm ophthalmic (eye) 12/29/22 [History Last Taken Unknown] rocklan EACH EYE 12/29/22 [History Last Taken Unknown] prednisone 5 mg tablets in a dose pack 5 mg PO DIRECTED right wrist extensor tenosyno #21 tabs 01/24/23 [Rx Last Taken Unknown] Allergy/AdvReac Type Severity Reaction Status Date / Time metoprolol [From Lopressor] Allergy Intermediate Shortness Verified 03/12/23 12:23 of breath Penicillins Allergy Rash Verified 03/12/23 12:23 Family History Father Hypertension Grandmother Hypertension Other Alcoholism Liver disease Surgical History History of appendectomy History of cataract extraction History of colon resection History of partial colectomy (~2003) Presence of stent in coronary artery Social History Smoking Status: Never smoker alcohol intake: current alcohol intake frequency: holidays/special occasions only substance use type: does not use caffeine: No what type of physical activity do you participate in: weight training ROS ROS ED Constitutional Constitutional ED: Denies chills or fever(s) Eyes Eyes: Denies change in vision or diplopia ENT ENT ED: Denies rhinorrhea or sore throat Cardiovascular Cardiovascular: Denies chest pain or palpitations Respiratory/Chest Respiratory/Chest: Denies cough or dyspnea Gastrointestinal Gastrointestinal: Reports nausea; Denies abdominal pain, diarrhea or vomiting Genitourinary Genitourinary ED: Denies dysuria or hematuria Musculoskeletal Musculoskeletal: Denies back pain or neck pain Integumentary Denies abscess or rash Neurologic Neurologic: Denies headache(s), paresthesias or weakness Psychiatric Psychiatric: Denies anxiety or suicidal thoughts EXAM Physical Exam Const Vital Signs: 03/12/23 12:20 03/12/23 12:24 03/12/23 13:14 Temperature 96.8 F L Temperature Source Temporal Pulse Rate 56 L 52 L Respiratory Rate 19 H 18 Respiratory Effort Normal Non-Labored Respiratory Pattern Normal Blood Pressure 169/67 H 125/65 H Blood Pressure Mean 101 85 Pulse Ox 98 97 Oxygen Delivery Method Room Air Room Air 03/12/23 13:57 Temperature Temperature Source Pulse Rate 44 L Respiratory Rate 23 H Respiratory Effort Respiratory Pattern Blood Pressure 121/66 H Blood Pressure Mean 84 Pulse Ox 98 Oxygen Delivery Method Room Air Positive well nourished and well developed General Appearance ED: well developed and NAD HEENT Reports moist mucous membranes normocephalic and atraumatic Eyes PERRL and EOMs intact bilaterally Neck full ROM, supple and no JVD Chest Wall inspection of chest normal and palpation of chest normal Resp normal respiratory effort and clear to auscultation bilaterally Cardio regular rate and regular rhythm Rate: Negative for tachycardic Heart Sounds: murmur systolic II/ crescendo-decrescendo left sternal border GI non-tender and non-distended Auscultation: normoactive bowel sounds Palpation: soft Back/Spine no CVA tenderness General Back: other FROM Extremity normal to inspection General Extremety ED: Negative for edema, pulses abnormal or tenderness General Extremity: Negative for edema or pulses abnormal Neuro oriented x3, CN's II-XII intact bilaterally and no sensory deficits noted Sensorium / Orientation: awake and alert Motor Exam: strength 5/5 throughout Skin no rashes or lesions noted and no wounds MDM MDM MDM Narrative Medical decision making narrative: I reviewed some old records, it seemed that he had an episode of atrial fibrillation that was verified and then after that he had a Holter monitor without any episodes of A-fib, and it does not sound like he is in atrial fibrillation very often. He did not have any chest discomfort or dyspnea, however he is 88 years old and so I sent for a troponin, which is elevated however it seems that he has had old troponin levels that are always abnormal. I am at a very low suspicion after looking at his EKG for acute coronary syndrome; it looks normal with a sinus rhythm. He is asymptomatic. We will repeat troponin in a couple hours. The rest of his tests are unremarkable. Repeat troponin came back at 407, down from 451. This is consistent with the lack of an acute coronary event. The rest of his troponins have been similarly elevated in the past when they were measured. He had a couple of episodes of relative bradycardia in the 40s with which he is asymptomatic. Looking at his list of medications he is on nothing for his blood pressure and no AV t[place] blockers. The cardiology clinic notes did not say anything about him being bradycardic, just that his hypertension was not severe. I advised close outpatient follow-up with his relocation specialist after the weekend he is comfortable with that plan we discussed reasons to return. History & Record Review Additional record(s) reviewed:: Prior outpatient record and Prior labs Lab Data Attestation: I reviewed the patient's lab results. Labs: Laboratory Results - last 24 hr 03/12/23 03/12/23 03/12/23 12:04 12:04 14:04 WBC 6.9 RBC 3.86 L Hgb 11.9 L Hct 37.6 L MCV 97.4 H MCH 30.8 MCHC 31.6 L RDW Std Deviation 54.1 H RDW Coeff of Angelia 15.1 H Plt Count 141 L MPV 11.0 Immature Gran % (Auto) 0.300 Neut % (Auto) 51.9 Lymph % (Auto) 32.4 Hooker % (Auto) 11.6 H Eos % (Auto) 3.2 Baso % (Auto) 0.6 Absolute Neuts (auto) 3.6 Absolute Lymphs (auto) 2.23 Nucleated RBC % 0 Sodium 137 Potassium 4.1 Chloride 104 Carbon Dioxide 30.0 Anion Gap 3 L BUN 15 Creatinine 0.70 Estim Creat Clear Calc 58.20 Est GFR (MDRD) Af Amer 138 Est GFR (MDRD) Non-Af 114 BUN/Creatinine Ratio 21.5 H Glucose 88 Calcium 9.6 Troponin I High Sens 451 H* 407 H* Rhythm Strip Rhythm Strip: Sinus Rhythm Rate: 55 Ectopy: None EKG Initial EKG: Attestation: I personally reviewed and interpreted this EKG as follows: Interpretation: Sinus Rhythm and No Acute Injury Pattern Prior EKG tracings: available for review Prior: Unchanged Discharge Plan Triage Chief Complaint: Palpitations ED Provider: Javier Ferrera Dx/Rx/DC Orders Clinical Impression: Paroxysmal atrial fibrillation Instructions: AFib Dc Prescriptions: No Action magnesium oxide [Cornejo] 500 mg tablet 1,500 mg PO QHS multivitamin capsule 1 cap PO DAILY Citrucel (sucrose) Powder 1 tbsp PO DAILY PRN (Reason: Constipation) finasteride 5 mg tablet 5 mg PO DAILY Label Comments: take 1 tablet by mouth once daily cyanocobalamin (vitamin B-12) 1,000 mcg capsule 1,000 mcg PO DAILY cholecalciferol (vitamin D3) 50 mcg (2,000 unit) tablet 50 mcg PO DAILY clobetasol 0.05 % cream 1 applic TOPICAL DAILY PRN (Reason: rash) Qty: 60 2RF budesonide-formoterol [Symbicort] 160-4.5 mcg/actuation HFA aerosol inhaler 2 puff inhalation DAILY Rx Instructions: administer with spacer, rinse mouth after each use dorzolamide 2 % drops 1 drp ophthalmic (eye) Label Comments: instill 1 drop into both eyes twice a day rocklan EACH EYE erythromycin 5 mg/gram (0.5 %) ointment ophthalmic (eye) prednisone 5 mg tablets,dose pack 5 mg PO DIRECTED MDD per dose instructions Qty: 21 0RF Rx Instructions: see taper instructions aspirin 81 MG tablet 81 mg PO DAILY@0800 travoprost 1 DROP bottle 1 drp EACH EYE QHS cetirizine 10 mg capsule 10 mg PO DAILY PRN (Reason: allergy) acetaminophen 325 MG tablet 650 mg PO Q6H PRN PRN (Reason: Pain Score 1-10/Temp > 100.7 F) 0RF netarsudil 0.02 % drops 1 drp ophthalmic (eye) DAILY albuterol sulfate [Ventolin HFA] 90 mcg/actuation HFA aerosol inhaler 2 puff INHALATION Q4H PRN (Reason: Asthma) Qty: 8.5 2RF (DME) Disability Placard See Rx Instructions .Route .MEDSUPPLY Qty: 1 0RF Rx Instructions: Expires 12/01/2026 Arthritis Compound 1 click TOPICAL DAILY PRN (Reason: Pain) Qty: 60 1RF Rx Instructions: Diclofenac 3%, Lidocaine 3%, Baclofen 2% 1 click=o.25g 1 click topical daily 60 click tube ferrous sulfate 325 mg (65 mg iron) tablet 325 mg PO QODAY Qty: 90 2RF atorvastatin 20 mg tablet 20 mg PO QHS Qty: 90 3RF nitroglycerin 0.4 mg tablet, sublingual 0.4 mg SUBLINGUAL Q5-15M PRN (Reason: chest pain) Qty: 25 3RF ursodiol 500 mg tablet 500 mg PO BIDCM Qty: 180 3RF famotidine 20 mg tablet 20 mg PO DAILY Qty: 90 3RF ezetimibe 10 mg tablet 10 mg PO DAILY Qty: 90 3RF Eliquis 5 mg tablet 5 mg PO BID Qty: 60 11RF Primary Care Provider: Addi Mario Referrals: John Cool MD [Med Staff - Active Staff] - 5-7 Days Addi Mario MD [Primary Care Provider] - Disposition Disposition: Home, Self Care What to do if you have Problems For any increased pain, shortness of breath, bleeding, nausea or vomiting, chestpain, or any unexpected problems, contact your Primary Care Provider. Call [facility] ([phone]) or report to the closest Emergency Room. Call 911 if necessary. 03/12/23 8169 <Electronically signed by Javier Ferrera MD> Cosigner Signature (if applicable): CC: Dr. John Cool MD; Dr. 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 Calculus of gallbladder with out mention of cholecystitis or obstruction 12/10/2008 11/02/2016 Calculus of kidney 12/10/2008 11/02/2016 LIVER NODULE 12/10/2008 11/02/2016 Overview: CT November 2008 Other seborrheic keratosis 10/18/200811/02 Other atopic dermatitis and related conditions 0 06/14/2008 11/02/2016 Other chronic dermatitis due to solar radiation 06/14/2008 11/02/2016 Flushing 06/14/2008 11/02/2016 Other and unspecified capillary diseases 008 11/02/2016 Seborrheic dermatitis, unspecified 06/14/2008 11/02/2016 HYPERGLYCEMIA 06/07/2008 11/02/2016 Cervicalgia 04/13/2007 11/02/2016 Abnormality of gait 02/21/2007 11/02/2016 OVERWEIGHT 11/21/2006 11/02/2016 Biliary cirrhosis 11/21/2006 08/26/2010 Overview: Dr. Vo Cough 11/21/2006 12/16/2015 Elevated prostate specific antigen (PSA) 007 11/02/2016 Overview: Follows with Dr. Maurice SNORING 11/21/2006 06/22/2016 PULMONARY NODULE 11/21/2006 11/02/2016 Overview: Dr. Denzel Powell, Pulmonary. Personal history of colonic polyps 11/21/2006 11/02/2016 Overview: Colonoscopy 06/11/[address] Lai Grant MD. Hx rt colon resection for large villous adenoma w/high grade dysplagia. Other psoriasis 11/21/2006 11/02/2016 documented as of this encounter (statuses as of 07/12/2022) [facility]04-[facility]2016 History of Past illness Narrative* Problem [...] of this encounter (statuses as of 06/01/2023) [facility] History of Past illness Narrative* Problem [...] of this encounter (statuses as of 07/05/2023) [facility] History of Past illness Narrative* Problem [...] of this encounter (statuses as of 09/03/2023) [facility] History of Past illness Narrative* Problem [...] as of this encounter (statuses as of 11/07/2023) [facility] December 08, 2023 11:03am Note Date/Time December 08, 2023 11: 03am [facility] Medical Records Department [address] [place] [address] Counseling Note - Pharmacy 12/08/23 1102 MR#: [id number] Acct: [id number] Name: JESSEE RUST Rep #:[id number] : 1935 88 From: Salome Childers PCP: Dr. Addi Mario MD Status:A DM IN Y Location: [place] [id number] Pharmacy DC Med Reconciliation Pharmacy Service has performed discharge medication reconciliation for this patient upon transfer to TCU The patient's discharge medication list was reviewed for discrepancies and discrepancies were resolved. Medications at Discharge Home Medications aspirin 81 mg tablet,delayed release 81 mg PO DAILY@0800 heart health 12/06/16 travoprost 0.004 % eye drops 1 drp EACH EYE QHS glaucoma 06/02/19 magnesium oxide (Cornejo) 1,500 mg PO QHS 08/05/20 cholecalciferol (vitamin D3) 50 mcg (2,000 unit) tablet 50 mcg PO DAILY 11/19/20 cyanocobalamin (vitamin B-12) 1,000 mcg capsule 1,000 mcg PO DAILY 11/19/20 Disability Placard #1 ea 12/01/21 Arthritis Compound 1 click topical DAILY PRN Pain #60 CLICKS 02/08/22 cetirizine 10 mg capsule 10 mg PO DAILY PRN allergy 10/05/22 albuterol sulfate 90 mcg/actuation aerosol inhaler (Ventolin HFA) 2 puff inhalation Q4H PRN Asthma #8.5 grams 04/28/23 nebulizer and compressor (Portable Nebulizer System) #1 ea 04/30/23 guaifenesin 1,200 mg tablet, extended release 12 hr 1,200 mg PO Q12H #60 tabs 06/29/23 atorvastatin 20 mg tablet 20 mg PO QHS cholesterol #90 tabs 07/07/23 ursodiol 500 mg tablet See Rx Instructions .Route .COMPLEX #180 tabs 08/03/23 famotidine 20 mg tablet 20 mg PO DAILY #90 tabs 08/10/23 brimonidine 0.1 % eye drops 1 drp ophthalmic (eye) DAILY 08/15/23 budesonide-formoterol HFA 160 mcg-4.5 mcg/actuation aerosol inhaler (Symbicort) 2 puff inhalation BID 08/15/23 finasteride 5 mg tablet 5 mg PO DAILY #90 tabs 08/18/23 ezetimibe 10 mg tablet 10 mg PO DAILY heart health #90 tabs 09/15/23 nitroglycerin 0.4 mg sublingual tablet 0.4 mg sublingual Q5-15M PRN chest pain #25 tabs 09/15/23 ferrous sulfate 325 mg (65 mg iron) tablet 325 mg PO QODAY #90 tabs 11/23/23 qwkwdkoo-eck-jejzc acid 0.4 mg-lycopene 300 mcg-lutein 250 mcg tablet (Centrum Silver) 1 tab PO DAILY 12/02/23 netarsudil 0.02 %-latanoprost 0.005 % eye drops (Rocklatan) 1 drp ophthalmic (eye) QHS 12/02/23 cefdinir 300 mg capsule 300 mg PO BID #10 caps 12/08/23 12/08/23 1103 <Electronically signed by Salome Childers > Date _ Salome Childers Cosigner Signature (if applicable): Date CC: ~ Signed [facility] Work Phone: Discharge summary Author Klaudia [facility] December 08, 2023 10:47am Note Date/Time December 08, 2023 10: 47am [facility] Medical Records Department [address] [place] [address] Transfer to [facility] MR#: [id number] Acct: [id number] Name: JESSEE RUST Rep #:[id number] : 1935 88 From: Klaudia Gonzales MD PCP: Dr. Addi Mario MD Status:A DM IN Certification of patient admission REQUIRED AT TIME OF ADMISSION. I CERTIFY THAT POST-HOSPITAL ECF SERVICES ARE REQUIRED TO BE GIVEN ON AN IN-PATIENT BASIS BECAUSE OF THE ABOVE NAMED PATIENT'S NEED FOR SHELTER CARE ON A CONTINUING BASIS FOR THE CONDITION(S) FOR WHICH HE/SHE WAS RECEIVING IN-PATIENT HOSPITAL SERVICES PRIOR TO HIS/HER TRANSFER TO [facility]. 12/08/23 1047<Electronically signed by Klaudia Gonzales MD> Diet Diet Order/Speech Therapy: 12/07/23 16:19 Diet: Regular - General Is pt able to select menu?: Yes Routine Orders/Code Status Enema Type: Fleetz Enema Frequency: Daily PRN Suppository Type: Dulcolax 10mg Suppository Frequency: Daily PRN O2 Frequency: PRN Keep PO Greater than or Equal to (%): 90 Wound(s) right radial: Wound Type: Puncture Therapies Weight Bearing: Weight bearing as tolerated Physical Therapy: Eval and Treat Occupational Therapy: Eval and Treat Problem/Diagnosis (1) Acute kidney injury: Status: Acute Code(s): N17.9 - Acute kidney failure, unspecified (2) Paroxysmal atrial fibrillation: Status: Acute Code(s): I48.0 - Paroxysmal atrial fibrillation (3) Sepsis: Status: Acute Code(s): A41.9 - Sepsis, unspecified organism (4) Non-STEMI (non-ST elevated myocardial infarction): Status: Acute Code(s): I21.4 - Non-ST elevation (NSTEMI) myocardial infarction Plan #Non-stemi * cardiology on board. * troponins elevated * on aspirin, lipitor and zetia. 2D echo showed mild concentric left ventricular hypertrophy with posterior hypokinesis and EF of 45% with stage II diastolic dysfunction and severely enlarged left atrium. 2+ mitral valve and tricuspid valve insufficiency and right ventricular stock pressure of 60 mmHg. Mild aortic stenosis. * Had cardiac cath which showed mild cardiac disease with plan for medical management. On aspirin and statin. Also on Eliquis. On carvedilol. * * #Acute encephalopathy due to UTI and probable pneumonia * on IV rocephin and azithromycin * Urine cultures grew E. coli * Blood culture growing E. coli. Currently on IV ceftriaxone. White cell count trended down to 10. Plan is for a total 10-day course of treatment. * #Right obstructive infected kidney stone * Cr remains elevated and is 1.53 today * Renal USG done showed right obstructive kidney stone * CT abdomen and pelvis showed moderate right hydronephrosis due 9mm ureteropelvic junction stone * urology consulted; for cystoscopy and stent insertion today * #Thrombocytopenia * has chronic thrombocytopenia * is improving, up to 116 today. * #Paroxysmal A-fib: On carvedilol. Has been in sinus rhythm since admission. Eliquis on hold due to retroperitoneal hematoma #FRANKLIN: * Creatinine today is 1.55. Creatinine is not improving. * In light of E. coli bacteremia, this was discussed with ID. Renal ultrasound obtained. This discussion showed right-sided hydronephrosis * CT abdomen/pelvis as above * will likely improve once she has cystoscopy. * #Possible left pelvic sidewall retroperitoneal hematoma * eliquis held. Hb is stable. 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 Allergies/Procedures Done in Hospital Allergies metoprolol [From Lopressor] Allergy (Intermediate, Verified 10/20/23 09:49) Shortness of breath Penicillins Allergy (Verified 10/20/23 09:49) Rash Procedures: 2-D Echocardiogram and Cardiac catheterization Type of Care/Length of Stay Estimated LOS: Convalescent Care Less Than 30 days Type of Care Needed: Skilled Rehab Potential: Fair Prognosis: Fair Additional Orders/Day of Discharge Day of Discharge: 12/08/23 Dietary and Speech Recommendations Dietitian Recommendations/Changes: Continue cardiac diet as ordered. ONS as needed if PO fails at meals. Discharge Plan Admission Admit Date/Time: 12/02/23 16:40 Primary Reason for Your Visit: nonstemi Attending Provider: Klaudia Gonzales Primary Care Provider: Addi Mario Consulting Providers: Vanessa Simmons; Miguelito Laguna; Darien Lee Instructions Patient Instructions: First Aid: Heart Attacks, Heart Attack Dc Discharge Orders/Prescriptions Prescriptions: New cefdinir 300 mg capsule 300 mg PO BID Qty: 10 0RF Continued magnesium oxide [Cornejo] 500 mg tablet 1,500 mg PO QHS cyanocobalamin (vitamin B-12) 1,000 mcg capsule 1,000 mcg PO DAILY cholecalciferol (vitamin D3) 50 mcg (2,000 unit) tablet 50 mcg PO DAILY guaifenesin 1,200 mg tablet extended release 12hr 1,200 mg PO Q12H Qty: 60 6RF budesonide-formoterol [Symbicort] 160-4.5 mcg/actuation HFA aerosol inhaler 2 puff inhalation BID Rx Instructions: administer with spacer, rinse mouth after each use brimonidine 0.1 % drops 1 drp ophthalmic (eye) DAILY Rx Instructions: instill 1 drop into both eyes twice a day albuterol sulfate [Ventolin HFA] 90 mcg/actuation HFA aerosol inhaler 2 puff INHALATION Q4H PRN (Reason: Asthma) Qty: 8.5 2RF aspirin 81 MG tablet 81 mg PO DAILY@0800 travoprost 1 DROP bottle 1 drp EACH EYE QHS cetirizine 10 mg capsule 10 mg PO DAILY PRN (Reason: allergy) Centrum Silver 0.4 mg-300 mcg- 250 mcg tablet 1 tab PO DAILY Rocklatan 0.02-0.005 % drops 1 drp ophthalmic (eye) QHS Rx Instructions: INSTILL 1 DROP INTO EACH EYE AT BEDTIME (DME) Disability Placard See Rx Instructions .Route .MEDSUPPLY Qty: 1 0RF Rx Instructions: Expires 12/01/2026 Arthritis Compound 1 click TOPICAL DAILY PRN (Reason: Pain) Qty: 60 1RF Rx Instructions: Diclofenac 3%, Lidocaine 3%, Baclofen 2% 1 click=o.25g 1 click topical daily 60 click tube (DME) nebulizer and compressor [Portable Nebulizer System] Device See Rx Instructions .Route Qty: 1 0RF Rx Instructions: As directed atorvastatin 20 mg tablet 20 mg PO QHS Qty: 90 3RF ursodiol 500 mg tablet See Rx Instructions .ROUTE .COMPLEX Qty: 180 3RF Dose Instruction: take 1 tablet by mouth twice a day with meals FOR LIVER DISEASE Rx Instructions: take 1 tablet by mouth twice a day with meals FOR LIVER DISEASE famotidine 20 mg tablet 20 mg PO DAILY Qty: 90 3RF finasteride 5 mg tablet 5 mg PO DAILY Qty: 90 3RF nitroglycerin 0.4 mg tablet, sublingual 0.4 mg SUBLINGUAL Q5-15M PRN (Reason: chest pain) Qty: 25 3RF ezetimibe 10 mg tablet 10 mg PO DAILY Qty: 90 3RF ferrous sulfate 325 mg (65 mg iron) tablet 325 mg PO QODAY Qty: 90 2RF Discontinued Eliquis 5 mg tablet 5 mg PO BID Qty: 60 11RF Referrals / Follow Up: Vanessa Simmons MD [Med Staff - Active Staff] - Within 2 Weeks Addi Mario MD [Primary Care Provider] - Within 1 Week Darien Lee MD [Med Staff - Active Staff] - Within 1 Week Disposition Disposition (needs filled in before D/C Order can be placed): [facility] 12/08/23 1047 <Electronically signed by Klaudia Gonzales MD> Cosigner Signature (if applicable): CC: Dr. Vanessa Simmons MD; Dr. Addi Mario MD; Dr. Darien Lee MD;Dr. Miguelito Laguna MD ~ [facility] Work Phone: Evaluation note* Diagnosis Onset Date Resolution Status Atherosclerosis of coronary artery of [place] heart without angina pectoris chronic Bradycardia chronic Presence of stent in coronary artery chronic Obesity acute Restrictive airway disease a cute Asthma chronic Vitamin D deficiency acute Asthma chronic BPH (benign prostatic hyperplasia) chronic Dizziness chronic Essential hypertension chron ic Iron deficiency anemia chron ic Asthma chronic New onset atrial fibrillation acute Atherosclerosis of coronary artery of [place] heart without angina pectoris chronic Hyperlipidemia [facility] Work Phone: Evaluation note* Diagnosis Onset Date Resolution Status Obesity acute Restrictive airway disease a cute Asthma chronic BPH (benign prostatic hyperplasia) chronic Essential hypertension chron ic Hyperlipidemia chronic Memory impairment chronic Physical debility chronic [facility] Work Phone: Evaluation note* Diagnosis Onset Date Resolution Status BPH (benign prostatic hyperplasia) chronic Essential hypertension chron ic Hyperlipidemia chronic Memory impairment chronic Physical debility chronic Hypertension chronic [facility] Work Phone: Evaluation note* Diagnosis Onset Date Resolution Status Essential hypertension chron ic Hyperlipidemia chronic Memory impairment chronic Aortic stenosis chronic Atherosclerosis of coronary artery of [place] heart without angina pectoris chronic Essential hypertension chron ic Hyperlipidemia chronic New onset atrial fibrillation chronic [facility] Work Phone: Evaluation note* Diagnosis Onset Date Resolution Status Aortic stenosis chronic Atherosclerosis of coronary artery of [place] heart without angina pectoris chronic Essential hypertension chron ic Hyperlipidemia chronic New onset atrial fibrillation chronic Asthma chronic Advanced directives, counseling/discussion acute Essential hypertension chron ic Glaucoma chronic Hyperlipidemia chronic Memory impairment chronic [facility] Work Phone: Evaluation note* Diagnosis Onset Date Resolution Status Advanced directives, counseling/discussion acute Essential hypertension chron ic Glaucoma chronic Hyperlipidemia chronic Memory impairment chronic Extensor tenosynovitis of right wrist acute [facility] Work Phone: Evaluation note* Diagnosis Onset Date Resolution Status Advanced directives, counseling/discussion acute Essential hypertension chron ic Glaucoma chronic Hyperlipidemia chronic Memory impairment chronic Extensor tenosynovitis of right wrist acute Essential hypertension chron ic Glaucoma chronic Psoriasis chronic Thrombocytopenia chronic Aortic stenosis chronic Atherosclerosis of coronary artery of [place] heart without angina pectoris chronic Essential hypertension chron ic Hyperlipidemia chronic New onset atrial fibrillation [facility] Work Phone: Evaluation note* Diagnosis Onset Date Resolution Status Extensor tenosynovitis of right wrist acute Essential hypertension chron ic Glaucoma chronic Psoriasis chronic Thrombocytopenia chronic Aortic stenosis chronic Atherosclerosis of coronary artery of [place] heart without angina pectoris chronic Essential hypertension chron ic Hyperlipidemia chronic New onset atrial fibrillation chronic COVID-19 acute Asthma chronic Essential hypertension chron ic Hyperlipidemia [facility] Work Phone: Evaluation note* Diagnosis Primary open angle glaucoma (POAG) of both eyes, severe stage- Primary Epiretinal membrane (ERM) of left eye Band keratopathy, bilateral [facility] Primary open angle glaucoma (POAG) of both eyes, severe stage [facility] Primary open angle glaucoma (POAG) of both eyes, severe stage- Primary [facility] Diagnosis Onset Date Resolution Status Asthma chronic Essential hypertension chron ic Hyperlipidemia chronic Memory impairment chronic COVID-19 acute Aortic stenosis chronic Atherosclerosis of coronary artery of [place] heart without angina pectoris chronic Hyperlipidemia chronic Sinus bradycardia chronic Non-STEMI (non-ST elevated myocardial infarction) acute Sepsis acute Urinary tract infection acut e [facility] Work Phone: Evaluation note* Diagnosis Onset Date Resolution Status Asthma chronic Essential hypertension chron ic Hyperlipidemia chronic Memory impairment chronic COVID-19 acute Paroxysmal atrial fibrillation acute Aortic stenosis chronic Atherosclerosis of coronary artery of [place] heart without angina pectoris chronic Hyperlipidemia chronic Sinus bradycardia chronic Acute kidney injury acute Cardiomyopathy acute Mitral regurgitation acute Non-STEMI (non-ST elevated myocardial infarction) acute Paroxysmal atrial fibrillation acute Sepsis acute Ureteral calculi acute Urinary tract infection acut e Aortic stenosis chronic Hyperlipidemia chronic Primary biliary cirrhosis ch ronic Thrombocytopenia chronic [facility] Work Phone: Evaluation note* Diagnosis Onset Date Resolution Status COVID-19 acute Aortic stenosis chronic Atherosclerosis of coronary artery of [place] heart without angina pectoris chronic Paroxysmal atrial fibrillation chronic Sinus bradycardia chronic Aortic stenosis chronic Paroxysmal atrial fibrillation chronic Acute kidney injury resolved Urinary tract infection reso lved Allergic rhinitis acute Atrial fibrillation acute BPH (benign prostatic hyperplasia) acute Debility acute Encephalopathy acute GERD (gastroesophageal reflux disease) acute Pneumonia acute Primary biliary cirrhosis [place] Right ureteral stone acute Asthma chronic Glaucoma chronic Urinary tract infection reso lved Aortic stenosis chronic Atherosclerosis of coronary artery of [place] heart without angina pectoris chronic Paroxysmal atrial fibrillation chronic Sinus bradycardia chronic [facility] Work Phone: Evaluation note* Diagnosis Primary open angle glaucoma (POAG) of both eyes, severe stage [facility] Primary open angle glaucoma (POAG) of both eyes, severe stage [facility] Diagnosis Redness of both eyes- Primary Primary open angle glaucoma (POAG) of both eyes, 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 Epiretinal membrane (ERM) of left eye Band keratopathy, bilateral [facility] Additional Instructions Right lower gingival bleeding controlled with TXA. Platelets 115. Discussed with cardiology may hold your baby aspirin and Eliquis. soft foods. Soft toothbrush avoid brushing the right lower teeth area at this time. Follow-up with your doctors. Return if any worsening symptoms.[facility] Work Phone: Reason for referral (narrative)No reason for referral information availableWMercy Memorial Hospital Work Phone: Chief Complaint and Reason for Visit Chief Complaint AORTIC STENOSIS/SOB AORTIC STENOSIS/SOB 6 MO F/U (NN PT) Hospital FU 2 M FU BP CK, BROUGHT CUFF 6 wk FU LEFT KNEE xray NN PT ? new onset atrial fib per MMM/L.[place]en[place] E ORDERS Reason for Visit Atherosclerosis of c oronary artery of [place] heart without angina pectoris Bradycardia Presence of stent in coronary artery Obesity Restrictive airway disease Asthma Vitamin D deficiency Asthma BPH (benign prostatic hyperplasia) Dizziness Essential hypertension Iron deficiency anemia Asthma New onset atrial fibrillation Atherosclerosis of coronary artery of [place] heart without angina pectoris Hyperlipidemia Chief Complaint 6 MO F/U (NN PT) Hospital FU 2 M FU BP CK, BROUGHT CUFF 6 wk FU LEFT KNEE xray NN PT ? new onset atrial fib per MMM/L.[place] E ORDERS NEW ONSET ATRIAL FIBRILLATION Reason for Visit Atherosclerosis of c oronary artery of [place] heart without angina pectoris Bradycardia Presence of stent in coronary artery Obesity Restrictive airway disease Asthma Vitamin D deficiency Asthma BPH (benign prostatic hyperplasia) Dizziness Essential hypertension Iron deficiency anemia Asthma New onset atrial fibrillation Atherosclerosis of coronary artery of [place] heart without angina pectoris Hyperlipidemia Chief Complaint 6 M FU 5 M FU E ORDER Reason for Visit Obesity Restrictive airway disease Asthma BPH (benign prostatic hyperplasia) Essential hypertension Hyperlipidemia Memory impairment Physical debility Chief Complaint 6 M FU 5 M FU E ORDER gi Reason for Visit Obesity Restrictive airway disease Asthma BPH (benign prostatic hyperplasia) Essential hypertension Hyperlipidemia Memory impairment Physical debility Chief Complaint 5 M FU E ORDER gi [facility] ER FU EORDERS BP CHECK Reason for Visit BPH (benign prostati c hyperplasia) Essential hypertension Hyperlipidemia Memory impairment Physical debility Hypertension Chief Complaint 5 M FU E ORDER gi [facility] ER FU EORDERS BP CHECK 9 M FU (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 Reason for Visit Essential hypertensi on Hyperlipidemia Memory impairment Aortic stenosis Atherosclerosis of coronary artery of [place] heart without angina pectoris Essential hypertension Hyperlipidemia New onset atrial fibrillation Chief Complaint 9 M FU (NN PT 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 FIB Reason for Visit Advanced directives, counseling/discussion Essential hypertension Glaucoma Hyperlipidemia Memory impairment Extensor tenosynovitis of right wrist Chief Complaint 5 M FU RT WRIST RIGHT WRIST A. FIB NOSEBLEED Reason for Visit Advanced directives, counseling/discussion Essential hypertension Glaucoma Hyperlipidemia Memory impairment Extensor tenosynovitis of right wrist Chief Complaint 5 M FU RT WRIST RIGHT WRIST A. FIB NOSEBLEED [facility] FU nosebleed 6 M FU COUGH Reason for Visit Advanced directives, counseling/discussion Essential hypertension Glaucoma Hyperlipidemia Memory impairment Extensor tenosynovitis of right wrist Essential hypertension Glaucoma Psoriasis Thrombocytopenia Aortic stenosis Atherosclerosis of coronary artery of [place] heart without angina pectoris Essential hypertension Hyperlipidemia New onset atrial fibrillation Chief Complaint RT WRIST RIGHT WRIST A. FIB NOSEBLEED [facility] FU nosebleed 6 M FU COUGH ACUTE [facility] FU - COVID DAY 7 CHEST XRAY Reason for Visit Extensor tenosynovit is of right wrist Essential hypertension Glaucoma Psoriasis Thrombocytopenia Aortic stenosis Atherosclerosis of coronary artery of [place] heart without angina pectoris Essential hypertension Hyperlipidemia New onset atrial fibrillation COVID-19 Asthma Essential hypertension Hyperlipidemia Chief Complaint 5 M FU Bradycardia, unspecified FU PER [facility] SEE CLINICAL NOTE NSTEMI, UTI, SEPSIS Reason for Visit Asthma Essential hypertension Hyperlipidemia Memory impairment COVID-19 Aortic stenosis Atherosclerosis of coronary artery of [place] heart without angina pectoris Hyperlipidemia Sinus bradycardia Non-STEMI (non-ST elevated myocardial infarction) Sepsis Urinary tract infection Chief Complaint 5 M FU Bradycardia, unspecified FU PER MH SEE CLINICAL NOTE NSTEMI W UTI AND PNEUMONIA NSTEMI, UTI, SEPSIS NSTEMI, UTI, SEPSIS NSTEMI, UTI, SEPSIS NSTEMI, UTI, SEPSIS NSTEMI, UTI, SEPSIS NSTEMI, UTI, SEPSIS NSTEMI, UTI, SEPSIS NSTEMI W UTI AND PNEUMONIA NSTEMI W UTI AND PNEUMONIA NSTEMI W UTI AND PNEUMONIA NSTEMI W UTI AND PNEUMONIA Reason for Visit Asthma Essential hypertension Hyperlipidemia Memory impairment COVID-19 Paroxysmal atrial fibrillation Aortic stenosis Atherosclerosis of coronary artery of [place] heart without angina pectoris Hyperlipidemia Sinus bradycardia Acute kidney injury Cardiomyopathy Mitral regurgitation Non-STEMI (non-ST elevated myocardial infarction) Paroxysmal atrial fibrillation Sepsis Ureteral calculi Urinary tract infection Aortic stenosis Hyperlipidemia Primary biliary cirrhosis Thrombocytopenia Chief Complaint Bradycardia, unspeci fied FU PER MH SEE CLINICAL NOTE NSTEMI W UTI AND PNEUMONIA NSTEMI, UTI, SEPSIS NSTEMI, UTI, SEPSIS NSTEMI, UTI, SEPSIS NSTEMI, UTI, SEPSIS NSTEMI, UTI, SEPSIS NSTEMI, UTI, SEPSIS NSTEMI, UTI, SEPSIS NSTEMI W UTI AND PNEUMONIA NSTEMI W UTI AND PNEUMONIA NSTEMI W UTI AND PNEUMONIA NSTEMI W UTI AND PNEUMONIA N STEMI WITH UTI & PNEUMONIA S/P [facility] 12/11 Reason for Visit COVID-19 Aortic stenosis Atherosclerosis of coronary artery of [place] heart without angina pectoris Paroxysmal atrial fibrillation Sinus bradycardia Aortic stenosis Paroxysmal atrial fibrillation Acute kidney injury Urinary tract infection Allergic rhinitis Atrial fibrillation BPH (benign prostatic hyperplasia) Debility Encephalopathy GERD (gastroesophageal reflux disease) Pneumonia Primary biliary cirrhosis Right ureteral stone Asthma Glaucoma Urinary tract infection Aortic stenosis Atherosclerosis of coronary artery of [place] heart without angina pectoris Paroxysmal atrial fibrillation Sinus bradycardia Chief Complaint Admit Date CONCERN FOR SUSANNAHEYE August 09, 2024 1:15pm 3 M FU August 15, 2024 2:19pm 6 M FU October 23, 2024 1 :53pm 3 M FU November 15, 2024 3:01pm Reason for Visit Admit Date Bilateral conjunctivitis August 09, 2024 1:15pm Bilateral conjunctivitis August 15, 2024 2:19pm Anemia August 15, 2024 2:19pm Essential hypertension August 15 2:19pm GERD (gastroesophageal reflux disease) N ovember 2023 2:19pm Hyperlipidemia August 15, 2024 2:19pm Vitamin D deficiency August 15, 2024 2:19pm Anemia October 23, 2024 1 :53pm Aortic stenosis October 23, 2024 1 :53pm Atherosclerosis of coronary artery of [place] heart without angina pectoris October 23, 2024 1:53pm CHF (congestive heart failure) October 23, 2024 1:53pm Hyperlipidemia October 23, 2024 1 :53pm Paroxysmal atrial fibrillation October 23, 2024 1:53pm Sinus bradycardia October 23, 2024 1 :53pm Swallowing disorder November 15, 2024 3:01pm Anemia November 15, 2024 3:01pm Asthma November 15, 2024 3:01pm Essential hypertension November 15 3:01pm Hyperlipidemia November 15, 2024 3:01pm Chief Complaint Admit Date 6 M FU October 23, 2024 1 :53pm 3 M FU November 15, 2024 3:01pm covid test November 30, 2024 1:3 6pm 6 M FU December 14, 2024 1:2 9pm Reason for Visit Admit Date Anemia October 23, 2024 1 :53pm Aortic stenosis October 23, 2024 1 :53pm Atherosclerosis of coronary artery of [place] heart without angina pectoris October 23, 2024 1:53pm CHF (congestive heart failure) October 23, 2024 1:53pm Hyperlipidemia October 23, 2024 1 :53pm Paroxysmal atrial fibrillation October 23, 2024 1:53pm Sinus bradycardia October 23, 2024 1 :53pm Swallowing disorder November 15, 2024 3:01pm Anemia November 15, 2024 3:01pm Asthma November 15, 2024 3:01pm Essential hypertension November 15 3:01pm Hyperlipidemia November 15, 2024 3:01pm Exposure to COVID-19 virus November 30, 2 025 1:36pm Sore throat November 30, 2024 1:3 6pm Asthma December 14, 2024 1:2 9pm CHF (congestive heart failure) November 1:29pm Chief Complaint Admit Date 6 M FU October 23, 2024 1 :53pm 3 M FU November 15, 2024 3:01pm covid test November 30, 2024 1:3 6pm 6 M FU December 14, 2024 1:2 9pm SWALLOWING CONCERNS January 02, 2025 12: 43pm Chief Complaint Admit Date 6 M FU October 23, 2024 1 :53pm 3 M FU November 15, 2024 3:01pm covid test November 30, 2024 1:3 6pm 6 M FU December 14, 2024 1:2 9pm SWALLOWING CONCERNS January 02, 2025 12: 43pm 3 M FU February 14, 2025 2:05p m Reason for Visit Admit Date Anemia October 23, 2024 1 :53pm Aortic stenosis October 23, 2024 1 :53pm Atherosclerosis of coronary artery of [place] heart without angina pectoris October 23, 2024 1:53pm CHF (congestive heart failure) October 23, 2024 1:53pm Hyperlipidemia October 23, 2024 1 :53pm Paroxysmal atrial fibrillation October 23, 2024 1:53pm Sinus bradycardia October 23, 2024 1 :53pm Swallowing disorder November 15, 2024 3:01pm Anemia November 15, 2024 3:01pm Asthma November 15, 2024 3:01pm Essential hypertension November 15 3:01pm Hyperlipidemia November 15, 2024 3:01pm Exposure to COVID-19 virus November 30, 2 025 1:36pm Sore throat November 30, 2024 1:3 6pm Asthma December 14, 2024 1:2 9pm CHF (congestive heart failure) November 1:29pm Asthma February 14, 2025 2:05p m Atrial fibrillation February 14, 2025 2:05p m Debility February 14, 2025 2:05p m Essential hypertension February 14, 2025 2: 05pm Hyperlipidemia February 14, 2025 2:05p m Chief Complaint Admit Date 6 M FU October 23, 2024 1 :53pm 3 M FU November 15, 2024 3:01pm covid test November 30, 2024 1:3 6pm 6 M FU December 14, 2024 1:2 9pm SWALLOWING CONCERNS January 02, 2025 12: 43pm 3 M FU February 14, 2025 2:05p m Back in a-fib, see clinical notes Devyn more 2024 2:15pm Reason for Visit Admit Date Anemia October 23, 2024 1 :53pm Aortic stenosis October 23, 2024 1 :53pm Atherosclerosis of coronary artery of [place] heart without angina pectoris October 23, 2024 1:53pm CHF (congestive heart failure) October 23, 2024 1:53pm Hyperlipidemia October 23, 2024 1 :53pm Paroxysmal atrial fibrillation October 23, 2024 1:53pm Sinus bradycardia October 23, 2024 1 :53pm Swallowing disorder November 15, 2024 3:01pm Anemia November 15, 2024 3:01pm Asthma November 15, 2024 3:01pm Essential hypertension November 15 3:01pm Hyperlipidemia November 15, 2024 3:01pm Exposure to COVID-19 virus November 30, 2 025 1:36pm Sore throat November 30, 2024 1:3 6pm Asthma December 14, 2024 1:2 9pm CHF (congestive heart failure) November 1:29pm Asthma February 14, 2025 2:05p m Atrial fibrillation February 14, 2025 2:05p m Debility February 14, 2025 2:05p m Essential hypertension February 14, 2025 2: 05pm Hyperlipidemia February 14, 2025 2:05p m Anemia February 19, 2025 2:15p m Aortic stenosis February 19, 2025 2:15p m Atherosclerosis of coronary artery of [place] heart without angina pectoris February 19, 2025 2:15pm CHF (congestive heart failure) February 19, 2025 2:15pm Hyperlipidemia February 19, 2025 2:15p m Paroxysmal atrial fibrillation February 19, 2025 2:15pm Sinus bradycardia February 19, 2025 2:15p m Family History No Family History Records Found Relationship Condition Age at Onset Recorded Date/T zach Not Specified Disorder of liver Unknown Alcoholism Unknown father Hypertension Unknown grandmother Hypertension Unknown Advance Directives No Advanced Directives Records Found Advance Directive Response Recorded Date/ Time Living Will Yes July 23 2:06pm Power of Assembly Cleaner Yes July 23, 2021 2:06pm Documents on File Type Date Recorded Patient Cd Technician Expl anation Advance Directive(s) 01/15/2016 12:48 PM Advance Directive Response Recorded Date/ Time Living Will Yes July 23 1:06pm Power of Assembly Cleaner Yes July 23, 2021 1:06pm Advance Directive Response Recorded Date/ Time Name of Medical Power of Assembly Cleaner SHAWNEESara RUST August 24, 2022 6:11am Living Will Yes August 24 6:11am Power of Assembly Cleaner Yes August 24, 2022 6:11am Advance Directive Response Recorded Date/ Time Name of Medical Power of Assembly Cleaner SHAWNEE EDGART January 22, 2023 10:29am Living Will Yes January 22, 2023 10 :29am Power of Assembly Cleaner Yes January 22, 2023 10:29am Advance Directive Response Recorded Date/ Time Name of Medical Power of Assembly Cleaner SHAWNEE EDGART January 22, 2023 10:29am Name of Medical Power of Assembly Cleaner SHAWNEE EDGART- ; AAKASH RUST- SON March 12, 2023 12:24pm Living Will Yes March 12, 2023 12:24pm Power of Assembly Cleaner Yes March 12 12:24pm Advance Directive Response Recorded Date/ Time Name of Medical Power of Assembly Cleaner SHANWEE LEIST January 22, 2023 10:29am Name of Medical Power of Assembly Cleaner SHAWNEE EDGART- ; AAKASH RUST- SON March 12, 2023 12:24pm Name of Medical Power of Assembly Cleaner shawnee leist March 21, 2023 7:58pm Living Will Yes March 21, 2023 7 :58pm Power of Assembly Cleaner Yes March 21, 2023 7:58pm Advance Directive Response Recorded Date/ Time Name of Medical Power of Assembly Cleaner SHAWNEE EDGART January 22, 2023 10:29am Name of Medical Power of Assembly Cleaner SHAWNEE EDGART- ; AAKASH RUST- SON March 12, 2023 12:24pm Name of Medical Power of Assembly Cleaner present March 25, 2023 11:31am Name of Medical Power of Assembly Cleaner --SHAWNEE April 22, 2023 8:23pm Living Will Yes April 22, 2023 8:23pm Power of Assembly Cleaner Yes April 22 8:23pm Name of Medical Power of Assembly Cleaner shawnee rust March 21, 2023 7:58pm Advance Directive Response Recorded Date/ Time Name of Medical Power of Assembly Cleaner SHAWNEE RUST December 02, 2023 1:37pm Living Will Yes December 02, 2023 1:37pm Power of Assembly Cleaner Yes December 01 1:37pm Advance Directive Response Recorded Date/ Time Name of Medical Power of Assembly Cleaner SHAWNEE RUST December 02, 2023 5:24pm Living Will Yes December 02, 2023 5:24pm Power of Assembly Cleaner Yes December 01 5:24pm Advance Directive Response Recorded Date/ Time Name of Medical Power of Assembly Cleaner SHAWNEE RUTS December 02, 2023 5:24pm Name of Medical Power of Assembly Cleaner Shawnee Rust, spouse December 09, 2023 12:01pm Name of Medical Power of Assembly Cleaner ON FILE December 20, 2023 10:35am Living Will Yes December 20, 2023 10:35am Power of Assembly Cleaner Yes December 19 10:35am Documents on File Type Date Recorded Patient Cd Technician Expl anation Advance Directive(s) 01/15/2016 12:48 PM Advance Directive Response Recorded Date/ Time Living Will Yes December 20, 2023 10:35am Power of Assembly Cleaner Yes December 19 10:35am Advance Directive Response Recorded Date/ Time Living Will Yes December 20, 2023 10:35am Do you have a Healthcare Power of Assembly Cleaner? 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 Diagnoses Primary open angle glaucoma (POAG) of both eyes, severe stage Procedures CONSULT TO [facility] Shawn Shea MD [address] [place] [address] [facility] [address] [place] [address] Referral ID Status Reason Start Date Expiration Date Visits Requested Visits Authorized [id number] Ref Not Required PCP Requested Referral 03/12/2024 03/12/2025 1 1 Summary Purpose Additional Source Comments Goals (unrecognized section and content) Goals may be documented in a n alternate sectionGoals may be documented in an alternate sectionGoals may be documented in an alternate sectionGoals may be documented in an alternate sectionGoals may be documented in an alternate sectionGoals may be documented in an alternate sectionGoals may be documented in an alternate sectionGoals may be documented in an alternate sectionGoals may be documented in an alternate sectionGoals may be documented in an alternate sectionGoals may be documented in an alternate sectionGoals may be documented in an alternate sectionGoals may be documented in an alternate sectionGoals may be documented in an alternate sectionGoals may be documented in an alternate sectionGoals may be documented in an alternate sectionGoals may be documented in an alternate sectionGoals may be documented in an alternate section Source Comments (unrecognize d section and content) In the event this informatio n is protected by the Federal Confidentiality of Alcohol and Drug Abuse Patient Records regulations: The Federal rules restrict any use of the information to criminally investigate or prosecute any alcohol or drug abuse patient.[facility] the event this information is protected by the Federal Confidentiality of Alcohol and Drug Abuse Patient Records regulations: The Federal rules restrict any use of the information to criminally investigate or prosecute any alcohol or drug abuse patient.[facility] the event this information is protected by the Federal Confidentiality of Alcohol and Drug Abuse Patient Records regulations: The Federal rules restrict any use of the information to criminally investigate or prosecute any alcohol or drug abuse patient.[facility] the event this information is protected by the Federal Confidentiality of Alcohol and Drug Abuse Patient Records regulations: The Federal rules restrict any use of the information to criminally investigate or prosecute any alcohol or drug abuse patient.[facility] the event this information is protected by the Federal Confidentiality of Alcohol and Drug Abuse Patient Records regulations: The Federal rules restrict any use of the information to criminally investigate or prosecute any alcohol or drug abuse patient.[facility] the event this information is protected by the Federal Confidentiality of Alcohol and Drug Abuse Patient Records regulations: The Federal rules restrict any use of the information to criminally investigate or prosecute any alcohol or drug abuse patient.[facility] the event this information is protected by the Federal Confidentiality of Alcohol and Drug Abuse Patient Records regulations: The Federal rules restrict any use of the information to criminally investigate or prosecute any alcohol or drug abuse patient.[facility] the event this information is protected by the Federal Confidentiality of Alcohol and Drug Abuse Patient Records regulations: The Federal rules restrict any use of the information to criminally investigate or prosecute any alcohol or drug abuse patient.[facility] the event this information is protected by the Federal Confidentiality of Alcohol and Drug Abuse Patient Records regulations: The Federal rules restrict any use of the information to criminally investigate or prosecute any alcohol or drug abuse patient.[facility] the event this information is protected by the Federal Confidentiality of Alcohol and Drug Abuse Patient Records regulations: The Federal rules restrict any use of the information to criminally investigate or prosecute any alcohol or drug abuse patient.[facility] the event this information is protected by the Federal Confidentiality of Alcohol and Drug Abuse Patient Records regulations: The Federal rules restrict any use of the information to criminally investigate or prosecute any alcohol or drug abuse patient.[facility] the event this information is protected by the Federal Confidentiality of Alcohol and Drug Abuse Patient Records regulations: The Federal rules restrict any use of the information to criminally investigate or prosecute any alcohol or drug abuse patient.[facility] the event this information is protected by the Federal Confidentiality of Alcohol and Drug Abuse Patient Records regulations: The Federal rules restrict any use of the information to criminally investigate or prosecute any alcohol or drug abuse patient.[facility] the event this information is protected by the Federal Confidentiality of Alcohol and Drug Abuse Patient Records regulations: The Federal rules restrict any use of the information to criminally investigate or prosecute any alcohol or drug abuse patient.[facility] the event this information is protected by the Federal Confidentiality of Alcohol and Drug Abuse Patient Records regulations: The Federal rules restrict any use of the information to criminally investigate or prosecute any alcohol or drug abuse patient.[facility] the event this information is protected by the Federal Confidentiality of Alcohol and Drug Abuse Patient Records regulations: The Federal rules restrict any use of the information to criminally investigate or prosecute any alcohol or drug abuse patient.[facility] Reason for Visit (unrecogniz ed section and content) Reason Comments Refill Request Reason Comments New Reason Comments Primary Open Angle Glaucoma Follow Up Reason Comments Medication Problem Reason Onset Date Comments Refill Request 03/10/2024 Reason Comments Primary Open Angle Glaucoma Follow Up Reason Comments Consult to [facility] Social Work Reason Comments Follow Up Reason Comments Primary Open Angle Glaucoma FOLLOW UP Pseudophakia Follow Up Reason Comments Conjunctivitis Evaluation Reason Comments follow up from 07/2025 Reason Comments Primary Open Angle Glaucoma Follow Up Se radha stage ou Pseudophakia Care Teams (unrecognized sec tion and content) Machine Folder Relationship Specialty Start Date End Date Manuel Logan MD [address] [place] [address] PCP - General Family Medicine 12/08/18 Tristan Montana MD Specialty Avionic Technician Cardiology 07/15/16 Team Status: Active Member Role Status Dates Dr. Manuel Logan MD Family Provider Active Dr. Addi Mario MD Primary Care Provider Active Team Status: Inactive Member Role Status Dates Dr. Addi Mario MD Primary Care P rovider, Attending Provider, Referring Provider Active Team Status: Inactive Member Role Status Dates Dr. Addi Mario MD Primary Care Provider, Refer ring Provider Active BASSEM Og Attending Provider Active Team Status: Inactive Member Role Status Dates Dr. Addi Mario MD Primary Care Provider, Refer ring Provider Active Dr. John Cool MD Attending Provider Active Team Status: Active Member Role Status Dates Dr. Addi Mario MD Primary Care Provider Active Dr. John Cool MD Attending Provider Active Team Status: Inactive Member Role Status Dates Dr. Addi Mario MD Primary Care Provider, Atten ding Provider Active Team Status: Inactive Member Role Status Dates Dr. Addi Mario MD Primary Care Provider Active Dr. Rolan Peña DO Attending Provider, Emergency Provide r Active Team Status: Inactive Member Role Status Dates Dr. Addi Mario MD Primary Care Provider Active Dr. John Cool MD Attending Provider, Referring Pro vider Active Team Status: Inactive Member Role Status Dates Dr. Addi Mario MD Primary Care Provider, Refer ring Provider Active Ailin Sharma [employer], C[employer]IN[employer]-C Attending Provider Active Team Status: Inactive Member Role Status Dates Dr. Addi Mario MD Primary Care Provider Active Dr. Julia Bishop MD Emergency Provider Active Team Status: Inactive Member Role Status Dates Dr. Addi Mario MD Primary Care Provider, Refer ring Provider Active Manuel Gardner MD Attending Provider Active Team Status: Inactive Member Role Status Dates Dr. Addi Mario MD Primary Care Provider Active Dr. Julia Bishop MD Attending Provider, Emergency Provider Active Team Status: Inactive Member Role Status Dates Dr. Addi Mario MD Primary Care Provider Active Dr. Javier Ferrera MD Emergency Provider Active Team Status: Inactive Member Role Status Dates Dr. Addi Mario MD Primary Care Provider Active Dr. Javier Ferrera MD Attending Provider, Emergency Provider Active Team Status: Inactive Member Role Status Dates Dr. Addi Mario MD Primary Care Provider Active Dr. Washington Pepper DO Emergency Provider Active Team Status: Inactive Member Role Status Dates Dr. Addi Mario MD Primary Care Provider, Refer ring Provider Active Ava Cardozo PA, PA Attending Provider Active Team Status: Inactive Member Role Status Dates Dr. Addi Mario MD Primary Care Provider Active Dr. Tremayne Marie DO Attending Provider, Emergency Pro vider Active Team Status: Inactive Member Role Status Dates Dr. Addi Mario MD Primary Care Provider Active Dr. Heber Miranda MD Emergency Provider Active Team Status: Inactive Member Role Status Dates Dr. Addi Mario MD Primary Care Provider Active Dr. Washington Pepper DO Attending Provider, Emergency P rovider Active Team Status: Inactive Member Role Status Dates Dr. Addi Mario MD Primary Care Provider Active Dr. Heber Miranda MD Attending Provider, Emergency Provider Active Machine Folder Relationship Specialty Start Date End Date Manuel Logan MD [address] [place], [place] [id number] PCP - General Family Medicine 12/08/18 Tristan Montana MD Specialty Avionic Technician Cardiology 07/15/16 Machine Folder Relationship Specialty Start Date End Date Manuel Logan MD [address] [place], [place] [id number] PCP - General Family Medicine 12/08/18 Tristan Montana MD Specialty Avionic Technician Cardiology 07/15/16 Machine Folder Relationship Specialty Start Date End Date Manuel Logan MD [address] [place] [address] PCP - General Family Medicine 12/08/18 Tristan Montana MD Specialty Avionic Technician Cardiology 07/15/16 Machine Folder Relationship Specialty Start Date End Date Manuel Logan MD [address] [place] [address] PCP - General Family Medicine 12/08/18 Tristan Montana MD Specialty Avionic Technician Cardiology 07/15/16 Team Status: Inactive Member Role Status Dates Dr. Addi Mario MD Primary Care Provider, Refer ring Provider Active Dr. Dash Schmidt MD Attending Provider Active Team Status: Inactive Member Role Status Dates Dr. Addi Mario MD Primary Care Provider Active Dr. Dash Schmidt MD Attending Provider, Referring Provider Active Team Status: Active Member Role Status Dates Dr. Addi Mario MD Primary Care Provider Active Dr. Antonio James , DO Emergency Provider Active Dr. Miguelito Laguna MD Admit Provider, Attending Provider Active Team Status: Active Member Role Status Dates Dr. Addi Mario MD Primary Care Provider Active Dr. Antonio James , DO Emergency Provider Active Dr. Miguelito Laguna MD Admit Provi liv, Attending Provider, Other Provider Active Dr. Vanessa Simmons MD Other Provider Active Team Status: Active Member Role Status Dates Dr. Addi Mario MD Primary Care Provider Active Dr. Antonio James , DO Emergency Provider Active Dr. Miguelito Laguna MD Admit Provider, Other Pro vider Active Dr. Vanessa Simmons MD Attending Provider, Other Provid er Active Dr. Klaudia Gonzales MD Other Provider Active Team Status: Active Member Role Status Dates Dr. Addi Mario MD Primary Care Provider Active Dr. Antonio James , DO Emergency Provider Active Dr. Miguelito Laguna MD Admit Provider, Other Pro vider Active Dr. Vanessa Simmons MD Other Provider Active Dr. Klaudia Gonzales MD Attending Provider, Other Prov ider Active Team Status: Active Member Role Status Dates Dr. Addi Mario MD Primary Care Provider Active Dr. Vanessa Simmons MD Attending Provider Active Team Status: Active Member Role Status Dates Dr. Addi Mario MD Primary Care Provider Active Dr. Antonio James , DO Emergency Provider Active Dr. Miguelito Laguna MD Admit Provider, Other Pro vider Active Dr. Vanessa Simmons MD Attending Provider, Other Provid er Active Dr. Klaudia Gonzales MD Other Provider Active Dr. Darien Lee MD Other Provider Active Team Status: Active Member Role Status Dates Dr. Addi Mario MD Primary Care Provider Active Dr. Antonio James , DO Emergency Provider Active Dr. Miguelito Laguna MD Admit Provider, Other Pro vider Active Dr. Vanessa Simmons MD Other Provider Active Dr. Klaudia Gonzales MD Attending Provider, Other Prov ider Active Dr. Darien Lee MD Other Provider Active Team Status: Inactive Member Role Status Dates Dr. Addi Mario MD Primary Care Provider Active Dr. Antonio James , DO Emergency Provider Active Dr. Miguelito Laguna MD Admit Provider, Other Pro vider Active Dr. Vanessa Simmons MD Other Provider Active Dr. Klaudia Gonzales MD Attending Provider Active Dr. Darien Lee MD Other Provider Active Team Status: Inactive Member Role Status Dates Dr. Addi Mario MD Primary Care Provider, Refer ring Provider Active Moreno Power [employer], C[employer]INARY INTERNSH[employer]-C Attending Provider Active Team Status: Active Member Role Status Dates Dr. Addi Mario MD Primary Care Provider Active Dr. Arsenio Mcgregor MD Admit Provider, Attending Provid er Active Team Status: Inactive Member Role Status Dates Dr. Addi Mario MD Primary Care Provider, Refer ring Provider Active Dr. Darien Lee MD Attending Provider Active Team Status: Inactive Member Role Status Dates Dr. Addi Mario MD Primary Care Provider Active Dr. Arsenio Mcgregor MD Admit Provider, Attending Provid er Active Machine Folder Relationship Specialty Start Date End Date Manuel Logan MD [address] [place] [address] PCP - General Family Medicine 12/08/18 Tristan Montana MD Specialty Avionic Technician Cardiology 07/15/16 Machine Folder Relationship Specialty Start Date End Date Manuel Logan MD [address] [place] [address] PCP - General Family Medicine 12/08/18 Tristan Montana MD Specialty Avionic Technician Cardiology 07/15/16 Machine Folder Relationship Specialty Start Date End Date Manuel Logan MD [address] [place] [address] PCP - General Family Medicine 12/08/18 Tristan Montana MD Specialty Avionic Technician Cardiology 07/15/16 Machine Folder Relationship Specialty Start Date End Date Manuel Logan MD [address] [place] [address] PCP - General Family Medicine 12/08/18 Tristan Montana MD Specialty Avionic Technician Cardiology 07/15/16 Machine Folder Relationship Specialty Start Date End Date Manuel Logan MD [address] [place] [address] PCP - General Family Medicine 12/08/18 Tristan Montana MD Specialty Avionic Technician Cardiology 07/15/16 Machine Folder Relationship Specialty Start Date End Date Manuel Logan MD [address] [place], [place] [id number] PCP - General Family Medicine 12/08/18 Tristan Montana MD Specialty Avionic Technician Cardiology 07/15/16 Machine Folder Relationship Specialty Start Date End Date Manuel Logan MD [address] [place], [place] [id number] PCP - General Family Medicine 12/08/18 Tristan Montana MD Specialty Avionic Technician Cardiology 07/15/16 Machine Folder Relationship Specialty Start Date End Date Manuel Logan MD [address] [address] PCP - General Family Medicine 12/08/18 Tristan Montana MD Specialty Avionic Technician Cardiology 07/15/16 Team Status: Active Member Role Status Dates Dr. Addi Mario MD Primary Care Provider Active Team Status: Inactive Member Role Status Dates Dr. Addi Mario MD Primary Care Provider Active Start: August 09, 2024 End: August 09, 2024 Dr. Addi Mario MD Referring Provider Active Start: August 09, 2024 End: August 09, 2024 Souleyamne LUEVANO PA Attending Provider Active Sta rt: August 09, 2024 End: August 09, 2024 Team Status: Inactive Member Role Status Dates Dr. Addi Mario MD Primary Care Provider Active Start: August 15, 2024 End: August 15, 2024 Dr. Addi Mario MD Attending Provider Active Start: August 15, 2024 End: August 15, 2024 Dr. Addi Mario MD Referring Provider Active Start: August 15, 2024 End: August 15, 2024 Team Status: Inactive Member Role Status Dates Dr. Addi Mario MD Primary Care Provider Active Start: October 23, 2024 End: October 23, 2024 Dr. Addi Mario MD Referring Provider Active Start: October 23, 2024 End: October 23, 2024 Ava LUEVANO PA Attending Provider Active Start: October 23, 2024 End: October 23, 2024 Team Status: Inactive Member Role Status Dates Dr. Addi Mario MD Primary Care Provider Active Start: November 15, 2024 End: November 15, 2024 Dr. Addi Mario MD Attending Provider Active Start: November 15, 2024 End: November 15, 2024 Dr. Addi Mario MD Referring Provider Active Start: November 15, 2024 End: November 15, 2024 Team Status: Inactive Member Role Status Dates Dr. Addi Mario MD Primary Care Provider Active Start: November 30, 2024 End: November 30, 2024 Dr. Addi Mario MD Attending Provider Active Start: November 30, 2024 End: November 30, 2024 Dr. Addi Mario MD Referring Provider Active Start: November 30, 2024 End: November 30, 2024 Team Status: Inactive Member Role Status Dates Dr. Addi Mario MD Primary Care Provider Active Start: December 14, 2024 End: December 14, 2024 Dr. Addi Mario MD Referring Provider Active Start: December 14, 2024 End: December 14, 2024 Ailin Sharma [employer], CULINARY [employer]NSHIP-C Attending Provider Active Start: December 14, 2024 End: December 14, 2024 Team Status: Inactive Member Role Status Dates Dr. Addi Mario MD Primary Care Provider Active Start: December 27, 2024 End: December 27, 2024 Dr. Addi Mario MD Attending Provider Active Start: December 27, 2024 End: December 27, 2024 Dr. Addi Mario MD Referring Provider Active Start: December 27, 2024 End: December 27, 2024 Team Status: Inactive Member Role Status Dates Dr. Addi Mario MD Primary Care Provider Active Start: January 02, 2025 End: January 02, 2025 Dr. Addi Mario MD Attending Provider Active Start: January 02, 2025 End: January 02, 2025 Dr. Addi Mario MD Referring Provider Active Start: January 02, 2025 End: January 02, 2025 Team Status: Inactive Member Role Status Dates Dr. Addi Mario MD Primary Care Provider Active Start: February 14, 2025 End: February 14, 2025 Dr. Addi Mario MD Attending Provider Active Start: February 14, 2025 End: February 14, 2025 Dr. Addi Mario MD Referring Provider Active Start: February 14, 2025 End: February 14, 2025 Team Status: Active Member Role Status Dates Dr. Addi Mario MD Primary Care Provider Active Start: February 14, 2025 Dr. Addi Mario MD Attending Provider Active Start: February 14, 2025 Dr. Addi Mario MD Referring Provider Active Start: February 14, 2025 Team Status: Inactive Member Role Status Dates Dr. Addi Mario MD Primary Care Provider Active Start: February 19, 2025 End: February 19, 2025 Dr. Addi Mario MD Referring Provider Active Start: February 19, 2025 End: February 19, 2025 Gretchen Nguyen [employer]IP, CULINARY [employer]NSHIP-C Attending Provider Active Start: February 19, 2025 End: February 19, 2025 (unrecognized sect ion and content) No Status Records FoundNo Status Records Found INFORMATION SOURCE (unrecogn ized section and content) DATE CREATED AUTHOR 01/24/2025 [facility] DATE CREATED AUTHOR AUTHOR'S BHARAT KENYON 03/10/2025 [facility] FOR RECORDS PERTAINING TO PATIENTS WHO ARE [...] BE BASED ON THE PRIMARY CLINICAL RECORDS. [employer] [facility]. provides no warranty or guarantee of the accuracy or completeness of information in this document.
[2025-03-10 17:13] VITALS: BP 128/76; PULSE 63; RESP 16; TEMP 36.6; O2SAT 97
== END 2025-03-10 17:42 | disposition home or self-care (01) ==
PROVIDERS: Emergency Provider Emergency Medicine; PCP Internal Medicine; Visit Provider Emergency Medicine
DX: S99.921A Unspecified injury of right foot, initial encounter (principal); I11.0 Hypertensive heart disease with heart failure; I50.9 Heart failure, unspecified; I25.10 Atherosclerotic heart disease of native coronary artery without angina pectoris; I25.2 Old myocardial infarction; X58.XXXA Exposure to other specified factors, initial encounter; Z95.5 Presence of coronary angioplasty implant and graft
CPT/HCPCS: 73630; 99283

== ENCOUNTER → 2025-03-14 | Outpatient (CLI) | payer MEDICARE, SELFPAY ==
[2025-03-14 15:50] LABS: BUN 18 mg/dL (4-19); BUN/Creat Ratio 17.6 RATIO (10-20); Calcium,Total 9.4 mg/dL (7.6-11.0); Carbon Dioxide 27.3 mmol/L (21.0-32.0); Chloride 100 mmol/L (98-108); EST Glomerular Filtration Rate 72 (>60); Glucose 98 mg/dL (70-99); Potassium 4.3 mmol/L (3.3-5.1); Sodium Level 139 mmol/L (133-145)
[2025-03-14 15:51] LABS: Anion Gap 12 (5-15)
== END | disposition home or self-care (01) ==
PROVIDERS: PCP Internal Medicine; Referring Provider Nurse Practitioner Gerontology; Visit Provider Nurse Practitioner Gerontology
DX: R06.02 Shortness of breath (principal)
CPT/HCPCS: 36415; 80048

== ENCOUNTER 2025-03-17 05:40 | Emergency (ER) | payer MEDICARE, SELFPAY ==
[2025-03-17 05:41] VITALS: BP 141/68; PULSE 62; RESP 18; TEMP 36.5; O2SAT 100; BMI 30.6
--- NOTE | 2025-03-17 06:29 | EDS_ITS ---
HPI History of Present Illness Chief Complaint: Nosebleed Informant: patient Narrative Narrative: Patient is an 89-year-old male with history of chronic atrial fibrillation on Eliquis. He states he has been having intermittent and recurrent right-sided nosebleeds for the past 3 weeks. He states he was seen by ENT and underwent a cautery procedure roughly a week ago as well. He states that there has been no recent trauma and he denies sick symptoms with nasal congestion and recurrent nose blowing. However he is continue to have intermittent bleeds. He states he was bleeding last night but was able to get under control. However he awoke this morning around 4 AM and had bleeding out of the right nostril that would not resolve with pressure and secondary to this he presents for evaluation. [facility] Medical History Bradycardia Immunity status testing Sore throat Exposure to COVID-19 virus Swallowing disorder Perianal dermatitis CHF (congestive heart failure) Ureteral calculi Cardiomyopathy Mitral regurgitation Rheumatoid arthritis Non-smoker Hypertension Atrial fibrillation Migraines Sepsis Non-STEMI (non-ST elevated myocardial infarction) Paroxysmal atrial fibrillation Extensor tenosynovitis of right wrist Advanced directives, counseling/discussion Anemia Left facial swelling Aortic stenosis New onset atrial fibrillation Vitamin D deficiency Obesity Restrictive airway disease Asthma Dermatitis Memory impairment Right foot pain Dizziness History of skin cancer Liver disease History of pneumonia Rheumatoid arthritis Seasonal allergies Fracture of triquetrum of right wrist Fracture of triquetrum of left wrist Closed vertical fracture of left patella History of colon polyps Orthostatic hypotension Iron deficiency anemia Sinus bradycardia Glaucoma Physical debility Degenerative disc disease, cervical Hyponatremia Thrombocytopenia Multiple fractures Fall Anginal equivalent Nonrheumatic aortic valve stenosis Psoriasis Osteoarthritis BPH (benign prostatic hyperplasia) Essential hypertension Atherosclerosis of coronary 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 Instructions: Nosebleeds. cholecalciferol (vitamin D3) 50 50 mcg PO DAILY Supple ment 11/19/20 12/01/23 History mcg (2,000 unit) tablet Disability Placard #1 ea 12/01/21 Unknown Rx Arthritis Compound 1 click topical DAILY PRN Pa in #60 02/08/22 Unknown Rx CLICKS albuterol sulfate 90 mcg/actuation 2 puff inhalation Q 4H PRN Asthma 04/28/23 Unknown Rx aerosol inhaler (Ventolin HFA) #8.5 grams nebulizer and compressor (Portable #1 ea 04/30/23 Unkn own Rx Nebulizer System) cexmizfx-ehz-vqcjc acid 0.4 1 tab PO DAILY supplement 12/02/23 12/01/23 History mg-lycopene 300 mcg-lutein 250 mcg tablet (Centrum Silver) netarsudil 0.02 %-latanoprost 1 drp ophthalmic (eye) Q HS Eye 12/02/23 12/02/23 History 0.005 % eye drops (Rocklatan) drops acetaminophen 500 mg tablet 1,000 mg (2 x 500 mg) PO Q 6H PRN 12/30/23 Unknown Rx PRN Pain Score 1-10 #0 tabs albuterol sulfate 2.5 mg/3 mL 2.5 mg (3 mL) inhalation Q4-6H PRN 01/04/24 Unknown Rx (0.083 %) solution for nebulization shortness of breat h or wheezing #90 mL cetirizine 10 mg tablet 10 mg PO DAILY PRN 01/23/24 Unknown History sennosides 8.6 mg-docusate sodium 1 tab-cap PO QHS 03/12 Unknown History 50 mg tablet (Senokot-S) nitroglycerin 0.4 mg sublingual 0.4 mg sublingual Q5-1 5M PRN chest 05/01/24 Unknown Rx tablet pain #25 tabs finasteride 5 mg tablet 5 mg PO DAILY BPH #90 tabs 1 11/07/23 Unknown Rx famotidine 20 mg tablet 20 mg PO DAILY GERD #90 tabs 09/10/24 Unknown Rx atorvastatin 20 mg tablet 20 mg PO QHS cholesterol #90 tabs 10/22/24 Unknown Rx potassium chloride 10 mEq 10 meq PO QDAY With Lasix #9 0 tabs 11/15/24 Unknown Rx tablet,extended release(part/cryst) brinzolamide 1 %-brimonidine 0.2 % 1 drp ophthalmic (e ye) DAILY 12/14/24 Unknown History eye drops,suspension (Simbrinza) budesonide-formoterol HFA 160 2 puff inhalation BID As thma #1 ea 12/14/24 Unknown Rx mcg-4.5 mcg/actuation aerosol inhaler (Symbicort) ferrous sulfate 325 mg (65 mg 325 mg PO QODAY Suppleme nt #90 tabs 02/05/25 Unknown Rx iron) tablet ursodiol 500 mg tablet 500 mg PO BID #180 tabs 01/18 06/13 Unknown Rx apixaban 5 mg tablet (Eliquis) 5 mg PO BID #60 tabs Unknown Rx furosemide 40 mg tablet 40 mg PO DAILY 03/17/25 Unkn own History Allergy/AdvReac Type Severity Reaction Status Date / Time metoprolol (From Lopressor) Allergy Intermediate Shortness Verified 03/17/25 05:41 of breath bee venom protein (honey Allergy Mild Swelling Verified 03/17/25 05:41 bee) (bee sting) Penicillins Allergy Rash Verified 03/17/25 05:41 Family History Father Hypertension Grandmother Hypertension Other Alcoholism Liver disease Surgical History History of coronary artery stent placement History of colon resection History of cataract extraction Presence of stent in coronary artery History of appendectomy History of partial colectomy (~2003) Social History household members: spouse Smoking Status: Never smoker alcohol intake: current alcohol intake frequency: holidays/special occasions only substance use type: does not use caffeine: No what type of physical activity do you participate in: weight training ROS ROS ED Constitutional Constitutional ED: Denies chills or fever(s) Eyes Eyes: Denies change in vision ENT ENT ED: Reports other Details: Positive nosebleed Cardiovascular Cardiovascular: Denies chest pain or racing heartbeat Respiratory/Chest Respiratory/Chest: Denies cough or dyspnea Gastrointestinal Gastrointestinal: Denies abdominal pain, diarrhea, nausea or vomiting Genitourinary Genitourinary ED: Denies dysuria Musculoskeletal Musculoskeletal: Denies myalgias Integumentary Denies rash Neurologic Neurologic: Denies headache(s) Hematologic/Lymphatic Hematologic/Lymphatic: Reports easy bleeding and easy bruising EXAM Physical Exam Const Vital Signs: 03/17/25 05:41 Temperature 97.7 F L Temperature Source Oral Pulse Rate 62 Respiratory Rate 18 Blood Pressure 141/68 H Blood Pressure Mean 92 Pulse Ox 100 Oxygen Delivery Method Room Air Positive well nourished and well developed General Appearance ED: well developed; Negative for pallor HEENT HEENT Narrative: There is a clot in the right nostril with dark red nonpulsatile blood consistent with anterior epistaxis No overflow bleeding noted in the left nostril No active bleeding the posterior pharynx No airway edema or compromise Eyes PERRL and EOMs intact bilaterally General Eye ED: Negative for pale conjunctiva or scleral icterus Neck supple Resp normal respiratory effort Resp Narrative: Breath sounds are diminished throughout with faint expiratory wheeze in the bilateral lower lobes consistent with history of asthma but no signs of respiratory distress Cardio Rate: bradycardia and other Other Details: Irregularly irregular rhythm with bradycardic rate consistent with history of chronic atrial fibrillation There is a grade 5 out of 6 holosystolic murmur as well. Extremity normal to inspection Neuro oriented x3, CN's II-XII intact bilaterally and no sensory deficits noted Sensorium / Orientation: alert Psych mental status grossly normal Skin no rashes or lesions noted General Skin Exam: Negative for jaundice or pallor MDM MDM MDM Narrative Medical decision making narrative: Patient arrived to the ER with stable vitals. He has had a recurrent nosebleeds mainly out of the right nostril over the past 3 weeks and has already seen ENT and underwent a cauterization procedure. Despite this he continues to have intermittent bleeds. Today's exam is consistent with anterior epistaxis as there is dark red nonpulsatile bleeding from the right nostril. He does not have findings to suggest a posterior nosebleed from the sphenopalatine artery. As his vitals are stable and this is been a intermittent issue over the past few weeks I do not feel the need for laboratory testing as his physical exam does not suggest acute blood loss anemia. Because of his recurrent symptoms and the fact he is on a blood thinner I did elect to perform packing with a 5.5cm rapid Rhino. After the right nostril was packed with the rapid Rhino it was inflated to 4 cc of air. The patient was then watched for 20 to 30 minutes in the ER. He did not have any overflow bleeding into the left nostril nor did he had any bleeding into the posterior pharynx indicating there was hemostasis of the anterior epistaxis. He was advised to hold his Eliquis for the next 3 days secondary to his nosebleed and was not directed he needs to follow-up with ENT once again to discuss further treatment options. However at this time his vitals are stable and there is no sign of persistent bleeding he is otherwise safe for discharge History & Record Review Discussion w/independent historian: Patient Discharge Plan Triage Chief Complaint: Nosebleed ED Provider: Hai Rand Dx/Rx/DC Orders Clinical Impression: Acute anterior epistaxis, Essential hypertension, Hyperlipidemia, Chronic atrial fibrillation, Current use of intermediate anticoagulation Instructions: ED Epistaxis (Adult) Prescriptions: No Action cholecalciferol (vitamin D3) 50 mcg (2,000 unit) tablet 50 mcg PO DAILY albuterol sulfate [Ventolin HFA] 90 mcg/actuation HFA aerosol inhaler 2 puff INHALATION Q4H PRN (Reason: Asthma) Qty: 8.5 2RF cetirizine 10 mg tablet 10 mg PO DAILY PRN sennosides-docusate sodium [Senokot-S] 8.6-50 mg tablet 1 tab-cap PO QHS albuterol sulfate 2.5 mg /3 mL (0.083 %) solution for nebulization 2.5 mg inhalation Q4-6H PRN (Reason: shortness of breath or wheezing) Qty: 90 3RF Simbrinza 1-0.2 % drops,suspension 1 drp ophthalmic (eye) DAILY budesonide-formoterol [Symbicort] 160-4.5 mcg/actuation HFA aerosol inhaler 2 puff inhalation BID Qty: 1 11RF Rx Instructions: administer with spacer, rinse mouth after each use potassium chloride 10 mEq tablet,ER particles/crystals 10 meq PO QDAY Qty: 90 3RF ursodiol 500 mg tablet 500 mg PO BID Qty: 180 1RF aspirin 81 MG tablet 81 mg PO DAILY@0800 Centrum Silver 0.4 mg-300 mcg- 250 mcg tablet 1 tab PO DAILY Rocklatan 0.02-0.005 % drops 1 drp ophthalmic (eye) QHS Rx Instructions: INSTILL 1 DROP INTO EACH EYE AT BEDTIME acetaminophen 500 mg Tablet 1,000 mg PO Q6H PRN PRN (Reason: Pain Score 1-10) Qty: 0 0RF furosemide 40 mg tablet 40 mg PO DAILY (DME) Disability Placard See Rx Instructions .Route .MEDSUPPLY Qty: 1 0RF Rx Instructions: Expires 12/01/2026 Arthritis Compound 1 click TOPICAL DAILY PRN (Reason: Pain) Qty: 60 1RF Rx Instructions: Diclofenac 3%, Lidocaine 3%, Baclofen 2% 1 click=o.25g 1 click topical daily 60 click tube (DME) nebulizer and compressor [Portable Nebulizer System] Device See Rx Instructions .Route Qty: 1 0RF Rx Instructions: As directed nitroglycerin 0.4 mg tablet, sublingual 0.4 mg SUBLINGUAL Q5-15M PRN (Reason: chest pain) Qty: 25 3RF finasteride 5 mg tablet 5 mg PO DAILY Qty: 90 3RF famotidine 20 mg tablet 20 mg PO DAILY Qty: 90 3RF atorvastatin 20 mg tablet 20 mg PO QHS Qty: 90 3RF ferrous sulfate 325 mg (65 mg iron) tablet 325 mg PO QODAY Qty: 90 2RF Eliquis 5 mg tablet 5 mg PO BID Qty: 60 11RF Primary Care Provider: Addi Mario Referrals: Addi Mario MD [Primary Care Provider] - Arian Rainey MD [Med Staff - Active Staff] - (Anterior epistaxis on Eliquis) Activity Restrictions/Additional Instructions: Please hold your Eliquis for the next 3 days. Follow-up with Dr. Rainey/ENT for repeat evaluation and do not remove your packing until you are evaluated by him. Return to the ER should you have any further concerns Print Language: Malay Disposition Disposition: Home, Self Care
--- OUTSIDE RECORDS SUMMARY | 2025-03-17 06:31 | XMS RPT_ITS | CCD ---
Author Organization [facility] Care Team Providers [facility] [place] Intern Name Role Phone Dr. Addi Mario Primary Care Provider [phone] Dr. Woody Montana Referring Provider [phone] Dr. Woody Montana Other Provider Dr. Valentín Krause Attending Provider Dr. Addi Mario Referring Provider [phone] Dr. Woody Montana Attending Provider [phone] Dr. Quentin Beltran Attending Provider [phone] Dr. Addi Mario Attending Provider [phone] Zachary WOODARD, HUAN Parisi Attending Provider Dr. Jeff Carrero Attending Provider Dr. John Cool Attending Provider Cas LUEVANO, [place] Ava Daniels Attending Provider Dr. Addi Mario Primary Care Provider [phone] Tristan Montana MD Unavailable Manuel Logan MD Primary Care Provider [phone] Dr. Addi Mario Primary Care Provider [phone] Dr. Addi Mario Referring Provider [phone] Dr. Quentin Beltran Attending Provider [phone] Dr. Addi Mario Attending Provider [phone] Dr. Addi Mario Primary Care Provider [phone] Dr. Addi Mario Referring Provider [phone] BASSEM Mireles Attending Provider Unavail le Dr. John Cool Attending Provider Dr. Addi Mario Primary Care Provider [phone] Dr. Addi Mario Referring Provider [phone] Dr. John Cool Attending Provider [phone] Zachary PREVENTIVE MEDICINE PHYSICIAN, PREVENTIVE MEDICINE PHYSICIAN-C Ailin Attending Provider Dr. Addi Mario Attending Provider [phone] Shelbi, Dr. Fontana Primary Care Provider [phone] Shelbi, Dr. Fontana Referring Provider [phone] MD Manuel Gardner Attending Provider [phone] BASSEM Mederos Attending Provider Dr. Addi Mario Primary Care Provider [phone] Dr. Addi Mario Referring Provider [phone] Dr. Addi Mario Attending Provider [phone] Nan FREDERICK, Nagapradeep Unavailable Manuel Logan MD Primary Care Provider [phone] Nan FREDERICK, Nagapradeep Unavailable Dr. Addi Mario [...] Dr. Addi Mario Referring Provider Tono WOODARD, PREVENTIVE MEDICINE PHYSICIAN-C Moreno Rhodes Attending Provider Desmond FREDERICK, Manuel Chnag Primary Care Provider [phone] Shelbi FREDERICK, Dr. Fontana Primary Care Provider Shelbi FREDERICK, Dr. Fontana Referring Provider [phone] Souleymane Curiel Attending Provider Shelbi FREDERICK, Dr. Fontana Attending Provider [phone] Ava Mederos Attending Provider [phone] Shelbi FREDERICK, Dr. Fontana Primary Care Provider Shelbi FREDERICK, Dr. Fontana Referring Provider [phone] Shelbi FREDERICK, Dr. Fontana Attending Provider [phone] Ailin Hernandez Attending Provider SHAWN SHEA Attending Unavailable MANUEL LOGAN Primary Care Unavailable MANUEL LOGAN Primary Care Unavailable SHAWN SHEA Attending Unavailable MANUEL LOGAN Primary Care Unavailable SHAWN SHEA Attending Unavailable MANUEL LOGAN Primary Care Unavailable PRIYA SALEH Attending Unavailable MANUEL LOGAN Primary Care Unavailable SHAWN SHEA Attending Unavailable Gretchen Fisher Attending Provider [phone] Shelbi FREDERICK, Dr. Fontana Primary Care Provider Dr. Addi Mario MD Referring Provider Gretchen Fisher Referring Provider [phone] Dr. Rolan Peña DO Emergency Provider [phone] Woody Montana Attending Unavailabl e Patrick WOODARD, Gretchen Referring Unavailable Oleghe, Efewongbe Primary Care Unavailable Oleghe, Efewongbe Referring Unavailable Oleghe, Efewongbe Attending Unavailable Oleghe, Efewongbe Primary Care Unavailable Oleghe, Efewongbe Attending Unavailable Oleghe, Efewongbe Referring Unavailable Oleghe, Efewongbe Primary Care Unavailable Oleghe, Efewongbe Referring Unavailable Oleghe, Efewongbe Primary Care Unavailable Ava Mederos Attending Unavail able Zachary WOODARD, Ailin Attending Unavailable Ailin Sharma NP Referring Unavailable Oleghe, Efewongbe Primary Care Unavailable Oleghe, Efewongbe Attending Unavailable Oleghe, Efewongbe Referring Unavailable Oleghe, Efewongbe Primary Care Unavailable Patrick WOODARD, Gretchen Attending Unavailable Patrick WOODARD, Gretchen Referring Unavailable Oleghe, Efewongbe Primary Care Unavailable Patrick WOODARD, Gretchen Referring Unavailable Patrick WOODARD, Gretchen Attending Unavailable Oleghe, Efewongbe Primary Care Unavailable Oleghe, Efewongbe Referring Unavailable Oleghe, Efewongbe Attending Unavailable Oleghe, Efewongbe Primary Care Unavailable Oleghe, Efewongbe Referring Unavailable Oleghe, Efewongbe Primary Care Unavailable Oleghe, Efewongbe Attending Unavailable Oleghe, Efewongbe Attending Unavailable Oleghe, Efewongbe Referring Unavailable Oleghe, Efewongbe Primary Care Unavailable Oleghe, Efewongbe Referring Unavailable Ava Mederos Attending Unavail able Oleghe, Efewongbe Primary Care Unavailable Ailin Sharma NP Attending Unavailable Oleghe, Efewongbe Referring Unavailable Oleghe, Efewongbe Primary Care Unavailable Patrick WOODARD, Gretchen Attending Unavailable Patrick WOODARD, Gretchen Referring Unavailable Oleghe, Efewongbe Primary Care Unavailable Rolan Peña Attending Unavailable Oleghe, Efewongbe Primary Care Unavailable Oleghe, Efewongbe Referring Unavailable Oleghe, Efewongbe Attending Unavailable Oleghe, Efewongbe Primary Care Unavailable Oleghe, Efewongbe Referring Unavailable Oleghe, Efewongbe Primary Care Unavailable Oleghe, Efewongbe Attending Unavailable Ailin Sharma NP Referring Unavailable Quentin Beltran Attending Unavailable Ailin Sharma NP Consulting Unavailable Oleghe, Efewongbe Primary Care Unavailable Quentin Beltran Attending Unavailable Oleghe, Efewongbe Referring Unavailable Oleghe, Efewongbe Primary Care Unavailable Zachary WOODARD, Ailin Attending Unavailable Souleymane Curiel Attending Unavailable Oleghe, Efewongbe Referring Unavailable Oleghe, Efewongbe Primary Care Unavailable Oleghe, Efewongbe Attending Unavailable Oleghe, Efewongbe Referring Unavailable Oleghe, Efewongbe Primary Care Unavailable Ailin Sharma NP Referring Unavailable Zachary PREVENTIVE MEDICINE PHYSICIAN, Ailin Attending Unavailable Oleghe, Efewongbe Primary Care Unavailable Oleghe, Efewongbe Referring Unavailable Oleghe, Efewongbe Attending Unavailable Oleghe, Efewongbe Primary Care Unavailable Oleghe, Efewongbe Referring Unavailable Gretchen Nguyen NP Attending Unavailable Oleghe, Efewongbe Primary Care Unavailable Oleghe, Efewongbe Referring Unavailable Oleghe, Efewongbe Attending Unavailable Oleghe, Efewongbe Primary Care Unavailable Quentin Beltran Attending Unavailable Dash Schmidt Attending Unavailable Oleghe, Efewongbe Primary Care Unavailable Ava Mederos Attending Unavail able Ava Mederos Referring Unavail able Oleghe, Efewongbe Primary Care Unavailable Allergies Allergy Classification Reported Allergen(s) Allergy Type Date of Onset Reaction(s) Facility amLODIPine (1 source) amLODIPine Drug Allergy 6 Other: See Comments [facility] HMG-CoA Reductase Inhibitors (statins) (1 source) atorvastatin Drug Allergy 1 Intolerance [facility] Metoprolol (1 source) Metoprolol Drug Allergy 4 Unknown [facility] Mold Extract (1 source) Mold Extract Drug Allergy 7 [facility] Penicillins (antibiotic) (1 source) Penicillins Drug Allergy 0 Hives [facility] Work Phone: (20 sources) Metoprolol; 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: [METOPROLOL] Drug Allergy 2 Unknown [facility] (20 sources) Penicillins; 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: [PENICILLINS] Allergy to substance 0 Hives [facility] Work Phone: (16 sources) amLODIPine; 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: [AMLODIPINE] Drug Allergy 6 Other: See Comments [facility] (16 sources) atorvastatin; 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: [ATORVASTATIN CALCIUM] Drug Allergy 1 Intolerance [facility] (16 sources) Mold Extract; 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: [MOLD] Drug Allergy 7 [facility] (16 sources) long haired dogs and cats [Other] Propensity to adverse reactions 7 [facility] (13 sources) beta-Blocking agent; 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: [BETA-BLOCKERS (BETA-ADRENERGIC BLOCKING AGTS)] Drug Allergy 0 Other: See Comments, Shortness of Breath [facility] (8 sources) bee venom protein (honey bee) Allergy to substance 5 Swelling [facility] (1 source) OTHER; 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: [OTHER] Propensity to adverse reactions (disorder) 7 [facility] [place] [facility] (1 source) Metoprolol Drug Allergy 5 [facility] (1 source) bee venom protein (honey bee) Drug allergy (disorder) 5 [facility] Repository Medications Current Medications Medication Drug Class(es) [...] /3 mL (0.083 %) solution for nebulization (8 sources) Start: 01-04-2024 take 2.5 mg by inhalation every four to six hours as needed for wheezing Albuterol Sulfate 2.5 mg /3 mL (0.083 %) solution for nebulization Active 2.5 mg INHALATION EVERY 4-6 HOURS as needed for shortness of breath or wheezing 90 January 04, 2024 12:00am apixaban 5 mg oral tablet (20 sources) Factor Xa Inhibitor Start: 2025 take 1 tablet by mouth twice daily Apixaban (Eliquis) 5 mg tablet Active 5 mg PO TWICE A DAY 60 2025 12:00am Start: 12-03-2021 End: 12-08-2023 take 1 tablet by mouth twice daily Apixaban (Eliquis) 5 mg tablet Discontinued 5 mg PO TWICE A DAY 60 December 08, 2022 3:29pm December 08, 2023 9:58am Comment on above: Take 1 tablet by paula two times a day. Arthritis Compound (20 sources) Start: 02-08-2022 Arthritis Compound Active 1 NMA TOPICAL DAILY as needed [...] mg PO DAILY@0800 December 06, 2016 12:00am On Hold: Nosebleeds. Start: 11-21-2006 ASPIRIN 81 MG TAB Take [...] the event of a Fluress shortage, administer [place]-Fluor 1 drop into both eyes as directed for applanation tonometry, [facility] MED ORDERS Start: 03-12-2024 End: 03-13-2024 fluorescein-benoxinate 0.3-0 .4 % 1 Drop (FLURESS) Start: 11-07-2023 End: 11-08-2023 fluorescein-benoxinate 0.3-0 .4 % 1 Drop (FLURESS) Start: 07-04-2023 End: 07-05-2023 fluorescein-benoxinate 0.25- 0.4 % 1 Drop (FLURESS) brimonidine tartrate 2 mg/ml / brinzolamide 10 mg/ml ophthalmic suspension (10 sources) Carbonic Anhydrase Inhibitor, alpha-Adrenergic Agonist Start: [...] A DAY 1 August 02, 2024 3:13pm December 14, 2024 [...] Discontinued 2 NMA INHALATION TWICE A DAY May 29, 2024 3:49pm August 02, 2024 3:14pm administer with spacer, rinse mouth after each use Start: 05-29-2024 End: 05-29-2024 Budesonide-Formoterol (Symbi trish) 160-4.5 mcg/actuation HFA aerosol inhaler Discontinued 2 NMA INHALATION TWICE A DAY May 29, 2024 10:31am May 29, 2024 3:49pm administer with spacer, rinse mouth after each use Start: 08-15-2023 End: 05-29-2024 Budesonide-Formoterol (Symbi trish) 160-4.5 mcg/actuation HFA aerosol inhaler Discontinued 2 NMA INHALATION TWICE A DAY August 15, 2023 3:45pm May 29, 2024 10:32am administer with spacer, rinse mouth after each use Start: 08-15-2023 take 1 puff(s) by mo [facility] twice daily Budesonide-Formoterol (Symbicort) 160-4. 5 mcg/actuation [...] use Start: 05-02-2023 take 1 puff(s) by [facility] once daily Budesonide-Formoterol (Symbicort) 160-4. 5 mcg/actuation [...] use Start: 08-04-2022 take 1 puff(s) by [facility] once daily Budesonide-Formoterol (Symbicort) 160-4. 5 mcg/actuation HFA aerosol inhaler Active 2 PUFF INHALATION DAILY August 04, 2022 3:03pm administer with spacer, rinse mouth after each use Start: 08-04-2022 take 1 puff(s) by [facility] once daily Budesonide-Formoterol (Symbicort) 160-4. 5 mcg/actuation [...] Discontinued 2 PUFF INHALATION TWICE A DAY March 26, 2022 8:23am August 04, 2022 3:03pm administer with spacer, rinse mouth after each use Start: 03-26-2022 End: 08-04-2022 take 1 puff(s) by mouth twice daily Budesonide-Formoterol (Symbicort) 160-4. 5 mcg/actuation HFA aerosol inhaler Discontinued 2 PUFF INHALATION TWICE A DAY March 26, 2022 7:23am August 04, 2022 2:03pm administer with spacer, rinse mouth after each use Start: 11-25-2021 take 1 puff(s) by [facility] twice daily Budesonide-Formoterol (Symbicort) 160-4. 5 mcg/actuation [...] INHALATION TWICE A DAY November 25, 2021 1:00am March 26, 2022 [...] INHALATION TWICE A DAY November 23, 2021 5:20pm November 25, 2021 9:47am administer with spacer, rinse mouth after each use Start: 11-23-2021 End: 11-25-2021 Budesonide-Formoterol (Symbi trish) 160-4.5 mcg/actuation HFA aerosol inhaler Discontinued 2 NMA INHALATION TWICE A DAY November 23, 2021 1:00am November 25, 2021 9:47am administer with spacer, rinse mouth after each use Start: 11-23-2021 End: 11-25-2021 take 1 puff(s) by mouth twice daily Budesonide-Formoterol (Symbicort) 160-4. 5 mcg/actuation HFA aerosol inhaler Discontinued 2 PUFF INHALATION TWICE A DAY November 23, 2021 1:00am November 25, 2021 9:47am administer with spacer, rinse mouth after each use Start: 11-23-2021 End: 11-25-2021 take 1 puff(s) by mouth twice daily Budesonide-Formoterol (Symbicort) 160-4. 5 mcg/actuation HFA aerosol inhaler Discontinued 2 PUFF INHALATION TWICE A DAY November 23, 2021 12:00am November 25, 2021 8:47am administer with spacer, rinse mouth after each use take 2 puff(s) by mo [facility] once daily budesonide-formoterol (SYMBICORT) 160-4. 5 mcg/actuation inhaler inhale 2 puffs by mouth once daily Active take 2 puff(s) by mo ut once daily budesonide-formoterol (SYMBICORT) 160-4. 5 mcg/actuation inhaler inhale 2 puffs by mouth once daily 0 Active Comment on above: inhale 2 puffs by ne ut once daily cholecalciferol 0.05 mg oral tablet [...] 12/01/2026 docusate sodium 50 mg / sennosides, group home 8.6 mg oral tablet (20 sources) Start: [...] Comment on above: Take 1 tablet by [facility] twice daily. For back pain. latanoprost 0.05 [...] FACE, EYES, EYELIDS, AND DEEP FOLD AREAS. Bibtydet-Hdw-Tr-L ycopen-Lutein (Centrum Silver) 0.4 mg-300 mcg- 250 mcg tablet (12 sources) Start: 12-02-2023 take 1 tablet by mouth once daily Hcntlfty-Ghw-Kj-Ly copen-Lutein (Centrum Silver) 0.4 mg-300 mcg- 250 mcg tablet Active 1 {tbl} PO DAILY December 02, 2023 12:00am Start: 12-02-2023 take 1 tablet by paula once daily Pqlzlwkb-Xri-Mq-Lycopen-Lutein (Centrum Silver) 0.4 mg-300 mcg- 250 mcg [...] Start: 07-24-2020 take 1 capsule by mo [facility] once daily multivitamin Active 1 CAP PO DAILY July 24, 2020 1:00am Start: 07-24-2020 take 1 capsule by mo uth once daily multivitamin Active 1 CAP PO [...] Start: 12-16-2015 take 1 tablet by paula th twice daily pediatric multivitamin plus minerals with iron chewable (FLINTSTONES COMPLETE, IRON,) chewable tablet Take 1 tablet by mouth twice daily. 0 12/16/2015 Active Comment on above: Take 1 tablet by paula th twice daily. phenylephrine hydrochloride 25 mg/ml ophthalmic [...] DISEASE Start: 01-27-2017 take 2 tablets by mo ut twice daily ursodiol (DANNIELLE) 250 mg tablet Take 2 tablets by mouth twice daily. 120 tablet 2 01/27/2017 Active Start: 12-06-2016 End: 12-01-2021 take 1 tablet by mouth twice daily at mealtime Ursodiol 250 mg tablet Discontinued 500 mg PO TWICE DAILY WITH MEALS 180 August 25, 2021 4:20pm December 01, 2021 11:32am Start: 12-06-2016 End: 12-01-2021 take 500 mg by mouth twice daily at mealtime Ursodiol Discontinued 500 MG PO TWICE DAILY WITH MEALS 180 August 25, 2021 4:20pm December 01, 2021 11:32am Comment on above: Take 2 tablets by mo uth twice daily. Completed/Discontinued Medications Medication Drug Class(es) [...] hours as needed for Wheezing/Shortness of Breath. Arthritis Pain Compound (15 sources) Start: 06-29-2020 End: 07-14-2020 Arthritis Pain Compound Discontinued 0 CLICK TOPICAL [...] 12:17pm Arthritis Pain Compound 60 CLICK Gm (8 sources) Start: 06-29-2020 End: 07-14-2020 Arthritis Pain [...] ophthalmic solution (20 sources) alpha-Adrenergic Agonist Start: End: take 0.1 drop(s) into the eye(s) three [...] eyes two times a day. 30 mL 03/10/2024 07/30/2024 Discontinued Start: 10-17-2012 take 0.1 [...] 9:40am Start: 01-22-2024 take 4 tablets by [facility] twice daily at mealtime carvedilol (COREG) 6.25 mg tablet Take 25 mg by mouth two times a day with meals. 01/22/2024 Active Start: 12-08-2023 End: 04-19-2024 take 1 tablet by mouth twice daily at mealtime Carvedilol 6.25 mg tablet Discontinued 6.25 mg PO TWICE DAILY WITH MEALS 180 January 09, 2024 5:03pm January 23, 2024 2:12pm cefdinir 300 mg oral capsule (11 sources) Cephalosporin Antibacterial Start: 12-08-2023 End: 12-20-2023 [...] 8:58am Start: 01-19-2013 take 1 tablet by paula once daily as needed Cetirizine 10 mg tablet Active 10 mg PO DAILY as needed January 23, 2024 12:00am Comment on above: Take 1 tablet by paula once daily. ciprofloxacin 500 mg oral tablet (10 sources) Quinolone Antimicrobial Start: 12-21-19 End: 12-30-19 take 1 tablet by mouth twice daily Ciprofloxacin Hcl (Cipro) 500 mg tablet Discontinued 500 mg PO TWICE A DAY December 21, 2023 12:00am December 30, 2023 [...] 2020 3:54pm dorzolamide 20 mg/ml ophthalmic solution (17 sources) Carbonic Anhydrase Inhibitor Start: 12-29-2022 End: [...] (20 sources) Dietary Cholesterol Absorption Inhibitor Start: 7 End: 4 take 1 tablet by mouth once daily Ezetimibe 10 mg tablet Discontinued 10 mg PO DAILY September 15, 2023 5:17pm August 15, 2024 5:12pm Comment on above: TAKE ONE TABLET BY M OUT EVERY DAY famotidine 20 mg oral tablet [...] Take 1 tablet by paula once daily. ferrous sulfate 325 mg oral [...] iron) tablet Discontinued 325 mg PO DAILY@1200 90 May 06, 2021 8:09am July 23, 2021 10:28am ferrous sulfate 325 mg (65 mg iron) tablet Take 1 tablet by mouth every 48 hours. Active Comment on above: Take 1 tablet by paula every 48 hours. finasteride 5 mg oral tablet (20 sources) 5-alpha Reductase Inhibitor Start: 9 End: 4 take 1 tablet by mouth once daily Finasteride 5 mg tablet Discontinued 5 mg PO DAILY 90 August 18, 2023 5:34pm September 06, 2024 [...] guaiFENesin 1200 mg extended release oral tablet (12 sources) Start: 06-29-2023 End: 12-30-2023 take 1 [...] tablet Discontinued 2.5 mg PO AT BEDTIME November 06, 2019 3:53pm June 29, 2020 11:56am Comment on above: Take 1 tablet by paula th once daily. Take 2.5 mg by mouth once daily. loratadine 10 mg oral tablet (10 sources) Start: 12-27-2023 End: 12-30-2023 take 1 [...] 2019 9:39am Start: 11-02-2016 Magnesium Hydr oxide (CORNEJO MILK OF MAGNESIA) 311 mg chew Indications: Chronic idiopathic constipation 2-4 tablets at bedtime for constipation. 0 11/02/2016 Active Comment on above: 2-4 tablets at bedti me for constipation. magnesium oxide 500 mg oral tablet (20 sources) Start: 08-05-2020 End: 01-23-2024 Magnesium Oxide (Cornejo) 500 mg tablet Discontinued 1500 mg PO AT BEDTIME August 05, 2020 1:00am January 23, 2024 1:36pm Start: 06-27-2019 End: 07-14-2020 Magnesium Oxide (Cornejo) 5 00 mg tablet Discontinued 1500 mg PO AT BEDTIME June 27, 2019 12:00am July 14, 2020 1:19pm Multivitamin capsule (8 sources) Start: 07-24-2020 End: 12-02-2023 Multivitamin capsule Discontinued 1 NMA PO DAILY July 24, 2020 1:00am December 02, 2023 3:08pm Multivitamin tablet (8 sources) Start: 05-25-2019 End: 07-14-2020 Multivitamin tablet [...] (150 mg x 2)-100 mg tablets,dose pack (7 sources) Start: 11-30-2024 End: 12-14-2024 Nirmatrelvir-Ritonavir (Paxlovid) [...] Chest Pain (Max of 3 tabs.). nystatin 500038 unt/ml / triamcinolone acetonide 1 mg/ml topical cream (20 sources) Polyene Antifungal, Corticosteroid Start: 07-30-2021 End: 03-01-2022 Nystatin-Triamcinolone 100,000-0.1 unit/g-% cream Discontinued 1 NMA TOPICAL TWICE A DAY 60 July 30, [...] Start: 11-22-2016 take 1 capsule by mo uth once daily before breakfast omeprazole (PRILOSEC) 20 mg capsule Indications: Atherosclerosis of [place] coronary artery of [place] heart without angina pectoris Take 20 mg by mouth daily before breakfast. 1/2 hr before meal. 30 capsule 11/22/2016 Active Comment on above: Take 1 capsule by mo uth daily before breakfast. 1/2 hr before meal. [...] as needed for Pain Score 6-10/10 12 3 June 29, 2020 June 11, 2020 12:00am [...] 12 June 29, 2020 June 29, 2020 10:55am Start: 06-29-2020 End: 06-29-2020 take 5 mg by mouth every six hours as needed Oxycodone Discontinued 5 MG PO EVERY 6 HOURS NEEDED 12 June 29, 2020 June 29, 2020 10:55am Start: [...] 12 June 29, 2020 June 29, 2020 10:55am Start: [...] 8:39am Pediatric Multivitamin No.76 1 EACH tablet,chewable (8 sources) Start: 12-06-2016 End: 05-25-2019 Pediatric Multivitamin No.76 1 EACH tablet,chewable Discontinued December 06, 2016 12:00am May 25, 2019 9:39am polymyxin b 32416 unt/ml / trimethoprim 1 mg/ml ophthalmic solution (13 sources) Dihydrofolate Reductase Inhibitor Antibacterial, Polymyxin-class Antibacterial [...] on above: take 4 tablets by mo [facility] daily for 3 days then 3 daily for 3 days ... (REFER TO PRESCRIPTION NOTES). crescencio (17 sources) Start: 12-29-2022 End: 08-15-2023 rocklan Discontinued [...] te Episodic/Chronic Acute and unspecified renal failure (14 sources) Acute renal failure syndrome; 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: [Acute kidney failure, unspecified] 12-03-2023 Episodic Acute myocardial infarction (20 sources) Myocardial infarction; 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: [Non-ST elevation (NSTEMI) myocardial infarction] 08-01-2021 Chronic Administrative/social admission (20 sources) Patient encounter status; 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: [Other specified [...] Onset: 8 Episodic Congestive heart failure; nonhypertensive (20 sources) Congestive heart failure; 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: [Heart failure, unspecified] 01-23-2024 Chronic Coronary atherosclerosis and other heart disease (20 sources) Coronary atherosclerosis; 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: [Atherosclerotic heart disease of [place] coronary artery without angina pectoris] Onset: 0 [...] (20 sources) Hyperlipidemia; 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: [Hyperlipidemia, unspecified] Onset: 7 Chronic Disorders of teeth and jaw (20 sources) Bleeding gums; 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: [Other specified disorders of gingiva and edentulous alveolar ridge] 09-01-2022 Episodic E Codes: Fall (20 sources) Fall; 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: [Unspecified fall, initial encounter] 09-27-2022 Episodic Esophageal disorders (14 sources) Gastroesophageal reflux disease; 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: [Gastro-esophageal reflux [...] hyperplasia without lower urinary tract symptoms] Onset: 7 Chronic Immunizations and screening for infectious disease (14 sources) Contact with or exposure to other viral diseases; 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: [Exposure to COVID-19 virus] 11-30-2024 Episodic Inflammation; infection of eye (except that caused by tuberculosis or sexually transmitteddisease) (11 sources) Blepharitis; 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: [Squamous blepharitis right eye, upper and lower eyelids] 08-14-2024 Episodic Malaise and fatigue (20 sources) Asthenia; 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: [Other malaise] Episodic Nutritional deficiencies (20 sources) Vitamin D deficiency; 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: [Vitamin D deficiency, unspecified] Chronic Osteoarthritis (20 sources) Osteoarthritis; 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: [Unspecified osteoarthritis, unspecified site] Onset: 7 11-21-2006 Chronic Other aftercare (12 sources) 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; 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: [detention (current) use of anticoagulants] 10-20-2023 Episodic Other aftercare (2 sources) Long-term current use of diuretic; 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: [Encounter for therapeutic drug level monitoring] 03-07-2025 Episodic Other and unspecified benign neoplasm (20 sources) History of polyp of colon; 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: [Personal history of colonic polyps] Onset: 7 Resolved: 7 09-27-2022 Episodic Other circulatory disease (20 sources) Orthostatic hypotension; 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: [Orthostatic hypotension] 09-27-2022 Episodic Other connective tissue disease (20 sources) Foot pain; 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: [Pain in right foot] 09-27-2022 Episodic Other connective tissue disease (16 sources) Extensor tenosynovitis of wrist; 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: [Other synovitis and tenosynovitis, right forearm] 01-24-2023 Episodic Other connective tissue disease (4 sources) Other synovitis and tenosynovitis, right forearm; 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: [Other tenosynovitis of hand and wrist] 01-24-2023 Episodic Other connective tissue disease (1 source) Pain in right foot; 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: [Pain in right foot] Onset: Episodic Other eye disorders (2 sources) Bilateral [...] fecal abnormalities] 12-23-2021 Episodic Other gastrointestinal disorders (16 sources) Dysphagia; 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: [Dysphagia, unspecified] 11-15-2024 Episodic [...] le ft patella and nasal bone Other injuries and conditions due to external causes (2 sources) Injury of right foot; 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: [Unspecified injury of right foot, initial encounter] 03-10-2025 Episodic Other liver diseases (20 sources) Disease of [...] elsewhere classified] Episodic Other lower respiratory disease (14 sources) H/O: asthma; 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: [Personal history of other diseases of the respiratory system] 04-22-2023 Episodic Other lower respiratory disease (20 sources) Cough; 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: [Cough] Onset: 7 Resolved: 6 04-22-2023 Episodic Other lower respiratory disease (2 sources) Shortness of breath; 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: [Shortness of breath] Onset: Episodic Other nervous system disorders (10 sources) Disorder of brain; 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: [Encephalopathy, unspecified] [...] 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: [Obesity, unspecified] Chronic Other skin disorders (20 sources) Facial swelling ; 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: [Localized swelling, mass and lump, head] 09-27-2022 Episodic Other upper respiratory disease (20 sources) Seasonal allergy; 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: [Other seasonal allergic rhinitis] 09-27-2022 Chronic Other upper respiratory disease (10 sources) Allergic rhinitis; 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: [Allergic rhinitis, unspecified] 12-08-2023 Chronic Other upper respiratory disease (2 sources) Allergic rhinitis, unspecified; 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: [Allergic rhinitis, cause unspecified] 12-08-2023 Chronic Other upper respiratory disease (20 sources) Bleeding from nose; 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: [Epistaxis] 03-21-2023 Episodic Alexandra-; endo-; and myocarditis; cardiomyopathy (except that caused by tuberculosis or sexually transmitted disease) (12 sources) Cardiomyopathy; 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: [Cardiomyopathy, unspecified] 12-06-2023 Chronic Pneumonia (except that caused by tuberculosis or sexually transmitted disease) (12 sources) Pneumonia; 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: [Pneumonia, unspecified organism] 12-08-2023 Episodic Residual codes; unclassified (20 sources) History of colectomy; 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: [Acquired absence of other specified parts of digestive tract] 09-27-2022 Episodic Residual codes; unclassified (20 sources) Memory impairment; 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: [Other amnesia] 05-14-2021 Episodic Residual codes; unclassified (10 sources) Other amnesia; 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: [Memory loss] Episodic Residual codes; unclassified (2 sources) Edema of lower leg ; 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: [Localized edema] 03-07-2025 Episodic Retinal detachments; defects; vascular occlusion; and retinopathy (2 sources) Epiretinal membrane of left eye; 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: [Puckering of macula, left eye] 06-01-2023 Chronic Rheumatoid arthritis and related disease (20 sources) Rheumatoid arthritis; 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: [Rheumatoid arthritis, unspecified] 09-27-2022 Chronic Septicemia (except in labor) (14 sources) Sepsis; 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: [Sepsis, unspecified organism] 12-02-2023 Episodic Spondylosis; intervertebral disc disorders; other back problems (20 sources) Degeneration of cervical intervertebral disc; 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: [Other cervical disc degeneration, unspecified cervical region] Onset: 3 Resolved: 7 09-27-2022 Chronic Comment on above: Worst at C5-6 and C6 -7. Sprains and strains (17 sources) Sprain of wrist; 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: [Unspecified sprain of right wrist, initial encounter] 01-22-2023 Episodic Unclassified (1 source) Contact with and (suspected) exposure to COVID-19; 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: [Contact with and (suspected) exposure to COVID-19] Onset: Urinary tract infections (18 sources) Urinary tract infectious disease; 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: [Urinary tract infection, site not specified] 12-02-2023 Episodic Viral infection (19 sources) Disease caused by 2019-nCoV; 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: [COVID-19] [...] Onset: 7 Resolved: 6 06-22-2016 Episodic Other nervous system disorders (11 sources) [...] keratosis] Onset: 9 Resolved: 7 11-02-2016 Episodic Other upper respiratory infections (15 sources) Sore throat symptom; 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: [Acute pharyngitis, unspecified] Onset: 5 11-30-2024 Episodic Residual codes; unclassified (11 sources) Flushing; 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: [Flushing] Onset: 8 Resolved: 7 11-02-2016 Episodic Spondylosis; intervertebral disc disorders; other back problems (20 sources) Chronic low back pain; 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: [Lumbago with sciatica, unspecified side] Onset: 7 Resolved: 7 12-23-2015 Episodic Results Test Name Value Interpretation Reference Range Facility Basic Metabolic Profile (BMP )on 03-14-2025 GAP 12 Normal 5-15 [facility] Comment on above: Performed By: #### L 500.2500 #### [facility] [address] [place], [address] BUN/CRE 17.6 RATIO Normal 10-20 [facility] Comment on above: Performed By: #### L 500.2500 #### [facility] [address] [place], [address] Calcium [Mass/Vol] 9.4 mg/dL Normal 7.6-11.0 [facility] Comment on above: Performed By: #### L 500.2500 #### [facility] [address] [place], [address] Chloride [Moles/Vol] 100 mmol/L Normal 98-108 [facility] Comment on above: Performed By: #### L 500.2500 #### [facility] [address] [place], [address] CO2 [Moles/Vol] 27.3 mmol/L Normal 21.0-32.0 [facility] Comment on above: Performed By: #### L 500.2500 #### [facility] [address] [place], [address] Creatinine [Mass/Vol] 1.00 mg/dL Normal 0.70-1.20 [facility] Comment on above: Performed By: #### L 500.2500 #### [facility] [address] [place], [address] GFR/1.73 sq M.predicted among non-blacks MDRD (S/P/Bld) [Vol rate/Area] 72 mL/min/{1.73_m2} Normal >60 [facility] Comment on above: Result Comment: mL/m in/1.73m2 CKD-EPI Creatinine Equation (2020) Performed By: #### L 500.2500 #### [facility] [address] [place], [address] Glucose [Mass/Vol] 98 mg/dL Normal 70-99 [facility] Comment on above: Performed By: #### L 500.2500 #### [facility] [address] [place], [address] Potassium [Moles/Vol] 4.3 mmol/L Normal 3.3-5.1 [facility] Comment on above: Performed By: #### L 500.2500 #### [facility] [address] [place], [address] Sodium [Moles/Vol] 139 mmol/L Normal 133-145 [facility] Comment on above: Performed By: #### L 500.2500 #### [facility] [address] [place], [address] Urea nitrogen [Mass/Vol] 18 mg/dL Normal 4-19 [facility] Comment on above: Performed By: #### L 500.2500 #### [facility] [address] [place], [address] Emergency Department Summary on 03-10-2025 Emergency Department Summary [facility] Medical Records Department [address] [place] [address] Emergency Department Summary 03/10/25 MR#: [id number] Acct: [id number] Name: JESSEE RUST Rep #: [id number] : 1935 89 From: Marisol LUEVANO PCP: Dr. Addi Mario MD Status:REG ER Location: ED HPI History of Present Illness Chief Complaint: Lower Extremity Injury Narrative Narrative: Patient resenting today with pain to his right foot after he was practicing balancing exercises Tuesday. He was standing on 1 foot while moving the opposite foot tlcb-lln-htenr. He is not of the exact mechanism of injury but reports that after performing these exercises he started to have pain in the right foot. He is able to ambulate but it is painful. He denies any other injury. 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 Instructions: Nosebleeds. cholecalciferol (vitamin D3) 50 50 mcg PO DAILY Supplement 1 12/01/23 History mcg (2,000 unit) tablet Disability Placard #1 ea 12/01/21 Unknown Rx Arthritis Compound 1 click topical DAILY PRN Pain #60 02/08/22 Unknown Rx CLICKS albuterol sulfate 90 mcg/actuation 2 puff inhalation Q4H PRN Asthma 04/28/23 Unknown Rx aerosol inhaler (Ventolin HFA) #8.5 grams nebulizer and compressor (Portable #1 ea 04/30/23 Unknown Rx Nebulizer System) pjukhlax-sjo-dpudj acid 0.4 1 tab PO DAILY supplement 12/02/23 12/01/23 History mg-lycopene 300 mcg-lutein 250 mcg tablet (Centrum Silver) netarsudil 0.02 %-latanoprost 1 drp ophthalmic (eye) QHS Eye 12/02/23 History 0.005 % eye drops (Rocklatan) drops acetaminophen 500 mg tablet 1,000 mg (2 x 500 mg) PO Q6H PRN 0 12/30/23 Unknown Rx PRN Pain Score 1-10 #0 tabs albuterol sulfate 2.5 mg/3 mL 2.5 mg (3 mL) inhalation Q4-6H PRN 01/04/24 Unknown Rx (0.083 %) solution for nebulization shortness of breath or wheezing #90 mL hydrocortisone 2.5 % topical cream 1 applic CO BID-QID PRN 01/04/24 Unknown Rx with perineal applicator hemorrhoids #30 grams cetirizine 10 mg tablet 10 mg PO DAILY PRN 01/23/24 Unknow n History sennosides 8.6 mg-docusate sodium 1 tab-cap PO QHS 01/23/24 Unknown History 50 mg tablet (Senokot-S) nitroglycerin 0.4 mg sublingual 0.4 mg sublingual Q5-15M PRN chest 05/01/24 Unknown Rx tablet pain #25 tabs finasteride 5 mg tablet 5 mg PO DAILY BPH #90 tabs 4 Unknown Rx famotidine 20 mg tablet 20 mg PO DAILY GERD #90 tabs 09/10 Unknown Rx atorvastatin 20 mg tablet 20 mg PO QHS cholesterol #90 tabs 10/22/24 Unknown Rx furosemide 20 mg tablet 20 mg PO QDAY #90 tabs 11/15/24 Un known Rx potassium chloride 10 mEq 10 meq PO QDAY With Lasix #90 tabs 11/15/24 Unknown Rx tablet,extended release(part/cryst) brinzolamide 1 %-brimonidine 0.2 % 1 drp ophthalmic (eye) 12/14/24 Unknown History eye drops,suspension (Simbrinza) budesonide-formoter ol HFA 160 2 puff inhalation BID Asthma #1 ea 12/14/24 Unknown Rx mcg-4.5 mcg/actuation aerosol inhaler (Symbicort) ferrous sulfate 325 mg (65 mg 325 mg PO QODAY Supplement #90 tab s 02/05/25 Unknown Rx iron) tablet u (more content not included)... Normal [facility] Foot min 3 Viewson Foot min 3 Views [facility] Imaging Services [address] [place] [id number] Foot min 3 Views MR#: [id number] Acct: [id number] Name: JESSEE RUST Rep #: [id number] : 1935 M 89 From: Vicki Ang PCP: Dr. Addi Mario MD Status: PRE ER Study: Foot min 3 Views Date of Exam: 03/10/25 Exam# [id number] Ordering Dr: Marisol Crum PROCEDURE: FOOT MIN 3 VIEWS 03/10/2025 REASON FOR EXAM: PAIN TECHNIQUE: FOOT MIN 3 VIEWS COMPARISON: 10/15/2019 RAD/Foot min 3 Views IMPRESSION: Mild diffuse osteopenia. Scattered moderate degenerative changes predominantly about the intertarsal joint spaces. No acute fracture or dislocations. No radiographic foreign body. No acute soft tissue abnormalities. Minimal diffuse soft tissue swelling. Consider dedicated ankle radiograph if there is concern for ankle pathology. Reading Location: [id number] CC: Dr. Addi Mario MD; BASSEM Soria Head Sampler: Signed Normal [facility] Anion gap in Serum or Plasma Ordered By: Gretchen Nguyen on 03-07-2025 Anion gap [Moles/Vol] 11 mmol/L 01-31 [facility] BUN/creatinine ratioOrdered By: Gretchen Nguyen on 03-07-2025 Urea nitrogen/Creatinine [Mass ratio] 18.4 mg/mg 07-08 [facility] Basic Metabolic Profile (BMP )on 03-07-2025 BUN/CRE 18.4 RATIO Normal 07-08 [facility] Comment on above: Performed By: #### L 500.2500, L503.7505 #### [facility] [address] [place], [address] Calcium [Mass/Vol] 9.3 mg/dL Normal 7.6-11.0 [facility] Comment on above: Performed By: #### L 500.2500, L503.7505 #### [facility] [address] [place], [address] Chloride [Moles/Vol] 103 mmol/L Normal 98-108 [facility] Comment on above: Performed By: #### L 500.2500, L503.7505 #### [facility] [address] [place], [address] CO2 [Moles/Vol] 26.9 mmol/L Normal 21.0-32.0 [facility] Comment on above: Performed By: #### L 500.2500, L503.7505 #### [facility] [address] [place], [address] Creatinine [Mass/Vol] 0.94 mg/dL Normal 0.70-1.20 [facility] Comment on above: Performed By: #### L 500.2500, L503.7505 #### [facility] [address] [place], [address] GAP 11 Normal 01-31 [facility] Comment on above: Performed By: #### L 500.2500, L503.7505 #### [facility] [address] [place], [address] GFR/1.73 sq M.predicted among non-blacks MDRD (S/P/Bld) [Vol rate/Area] 78 mL/min/{1.73_m2} Normal >60 [facility] Comment on above: Result Comment: mL/m in/1.73m2 CKD-EPI Creatinine Equation (2020) Performed By: #### L 500.2500, L503.7505 #### [facility] [address] [place], [address] Glucose [Mass/Vol] 79 mg/dL Normal 70-99 [facility] Comment on above: Performed By: #### L 500.2500, L503.7505 #### [facility] [address] [place], [address] Potassium [Moles/Vol] 4.9 mmol/L Normal 3.3-5.1 [facility] Comment on above: Result Comment: Hemo lysis present, Results??could be affected. ?? Performed By: #### L 500.2500, L503.7505 #### [facility] [address] [place], [address] Sodium [Moles/Vol] 140 mmol/L Normal 133-145 [facility] Comment on above: Performed By: #### L 500.2500, L503.7505 #### [facility] [address] [place], [address] Urea nitrogen [Mass/Vol] 17 mg/dL Normal 4-19 [facility] Comment on above: Performed By: #### L 500.2500, L503.7505 #### [facility] [address] [place], [address] Carbon dioxide, total [Moles /volume] in Central venous bloodOrdered By: Gretchen Nguyen on 03-07-2025 CO2 [Moles/Vol] 26.9 mmol/L 21.0-32.0 [facility] Chloride assayOrdered By: Oli Nguyen on 03-07-2025 Chloride [Moles/Vol] 103 mmol/L 98-108 [facility] Glomerular filtration rate ( GFR) estimation/1.73 sq m using serum, plasma, or whole bOrdered By: Gretchen Nguyen on 03-07-2025 GFR/1.73 sq M.predicted among non-blacks MDRD (S/P/Bld) [Vol rate/Area] 78 mL/min/{1.73_m2} >60 [facility] Comment on above: mL/min/1.73m2 CKD-EP I Creatinine Equation (2020) L503.7505on 03-07-2025 Natriuretic peptide B (Bld) [Mass/Vol] 3513 pg/mL High <=1800 [facility] Comment on above: Result Comment: Hear t Failure Unlikely: < 300 pg/mL Heart Failure Likely < 50 Years: > 450 pg/mL 50-75 Years: > 900 pg/mL >75 Years: > 1800 pg/mL Performed By: #### L 500.2500, L503.7505 #### [facility] [address] [place], [address] Natriuretic peptide.B prohor khloe N-Terminal [Mass/volume] in Serum or PlasmaOrdered By: Gretchen Nguyen on 03-07-2025 Natriuretic peptide.B prohormone N-Terminal [Mass/Vol] 3513 pg/mL High <1800 [facility] Comment on above: Heart Failure Unlike ly: < 300 pg/mLHeart Failure Likely< 50 Years: > 450 pg/mL50-75 Years: > 900 pg/mL>75 Years: > 1800 pg/mL Potassium measurement (mass/ volume)Ordered By: Gretchen Nguyen on 03-07-2025 Potassium (Unsp spec) [Mass/Vol] 4.9 mmol/L 3.3-5.1 [facility] Comment on above: Hemolysis present, R esults could be affected. Serum creatinine measurement (mass/volume)Ordered By: Gretchen Nguyen on 03-07-2025 Creatinine [Mass/Vol] 0.94 mg/dL 0.70-1.20 [facility] Serum glucose measurement (m ass/volume)Ordered By: Gretchen Nguyen on 03-07-2025 Glucose [Mass/Vol] 79 mg/dL 70-99 [facility] Serum or plasma calcium tay urement (mass/volume)Ordered By: Gretchen Nguyen on 03-07-2025 Calcium [Mass/Vol] 9.3 mg/dL 7.6-11.0 [facility] Serum or plasma urea nitroge n measurement (mass/volume)Ordered By: Gretchen Nguyen on 03-07-2025 Urea nitrogen [Mass/Vol] 17 mg/dL 4-19 [facility] Sodium levelOrdered By: Shagufta Nguyen on 03-07-2025 Sodium [Moles/Vol] 140 mmol/L 133-145 [facility] Cardiology Visit Reporton Cardiology Visit Report [facility] [address] [place] [address] OFFICE VISIT Date of Service: 02/19/25 MR#: [id number] Acct: [id number] Name: JESSEE RUST Rep #: [id number] : 1935 Provider: HUAN Kaminski rts Age/Sex: 89/M Location: [facility] Status: Signed HPI HPI History of Present [...] evidence of ischemia. He was evaluated at [facility] in November 2023 for non-ST myocardial infarction. 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 Normal [facility] Vitamin B12on 02-15-2025 Cobalamin (Vitamin B12) [Mass/Vol] 425 pg/mL Normal 180-914 [facility] Comment on above: Performed By: #### L 503.0106 #### [facility] [address] [place], [address] Absolute lymphocyte countOrd ered By: Addi Mario on 02-14-2025 Lymphocytes Auto (Unsp spec) [#/Vol] 2.30 10*3/uL 0.83-4.51 [facility] Absolute neutrophil countOrd ered By: zackeryracelandlilli Mario on 02-14-2025 Neutrophils (Bld) [#/Vol] 4.7 10*3/uL 2.0-7.7 [facility] Anion gap in Serum or Plasma Ordered By: zackeryracelandlilli Mario on 02-14-2025 Anion gap [Moles/Vol] 10 mmol/L 5-15 [facility] Automated lymphocyte count a s percentage of total leukocytesOrdered By: Addi Mario on 02-14-2025 Lymphocytes/100 WBC Auto (Unsp spec) 28.6 % 19-41 [facility] BUN/creatinine ratioOrdered By: zackeryracelandlilli Mario on 02-14-2025 Urea nitrogen/Creatinine [Mass ratio] 23.1 mg/mg High 10-20 [facility] Basophil percentageOrdered B y: Addi Mario on 02-14-2025 Basophils/100 WBC (Bld) 0.5 % 0-1 [facility] Bilirubin, totalOrdered By: Addi Mario on 02-14-2025 Bilirubin [Mass/Vol] 0.37 mg/dL 0.00-1.30 [facility] CBC W/Diff, Automatedon 01-18 Absolute Lymph 2.30 X10 3/uL Normal 0.83-4.51 [facility] Comment on above: Performed By: #### L 501.9520, L506.0400, L500.4050, L100.0100, L501.5200 ####[facility] [address] [place], [address] Absolute Neut 4.7 X10 3/uL Normal 2.0-7.7 [facility] Comment on above: Performed By: #### L 501.9520, L506.0400, L500.4050, L100.0100, L501.5200 ####[facility] [address] [place], [address] Basophils/100 WBC (Bld) 0.5 % Normal 0-1 [facility] Comment on above: Performed By: #### L 501.9520, L506.0400, L500.4050, L100.0100, L501.5200 ####[facility] [address] [place], [address] Eosinophils/100 WBC (Bld) 2.6 % Normal 0-5 [facility] Comment on above: Performed By: #### L 501.9520, L506.0400, L500.4050, L100.0100, L501.5200 ####[facility] [address] [place], [address] Erythrocyte distribution width (RBC) [Ratio] 15.4 % High 11.6-14.6 [facility] Comment on above: Performed By: #### L 501.9520, L506.0400, L500.4050, L100.0100, L501.5200 ####[facility] [address] [place], [address] Hematocrit (Bld) [Volume fraction] 37.3 % Low 40-54 [facility] Comment on above: Performed By: #### L 501.9520, L506.0400, L500.4050, L100.0100, L501.5200 ####[facility] [address] [place], [address] Hemoglobin (Bld) [Mass/Vol] 12.0 g/dL Low 13.0-16.5 [facility] Comment on above: Performed By: #### L 501.9520, L506.0400, L500.4050, L100.0100, L501.5200 ####[facility] [address] [place], [address] IG% 0.100 Normal 0.0-0.9 [facility] Comment on above: Result Comment: IG% - Immature Granulocytes (promyelocytes, myelocytes and metamyelocytes) > 1% indicates that a LEFT SHIFT is Present. Performed By: #### L 501.9520, L506.0400, L500.4050, L100.0100, L501.5200 ####[facility] [address] [place], [address] Lymphocytes/100 WBC (Bld) 28.6 % Normal 19-41 [facility] Comment on above: Performed By: #### L 501.9520, L506.0400, L500.4050, L100.0100, L501.5200 ####[facility] [address] [place], [address] MCH (RBC) [Entitic mass] 31.4 pg Normal 27.0-32.0 [facility] Comment on above: Performed By: #### L 501.9520, L506.0400, L500.4050, L100.0100, L501.5200 ####[facility] [address] [place], [address] MCHC (RBC) [Mass/Vol] 32.2 g/dL Normal 32-36 [facility] Comment on above: Performed By: #### L 501.9520, L506.0400, L500.4050, L100.0100, L501.5200 ####[facility] [address] [place], [address] MCV (RBC) [Entitic vol] 97.6 fL High 80-94 [facility] Comment on above: Performed By: #### L 501.9520, L506.0400, L500.4050, L100.0100, L501.5200 ####[facility] [address] [place], [address] Monocytes/100 WBC (Bld) 9.7 % Normal 0-10 [facility] Comment on above: Performed By: #### L 501.9520, L506.0400, L500.4050, L100.0100, L501.5200 ####[facility] [address] [place], [address] Neutrophils/100 WBC (Bld) 58.5 % Normal 47-70 [facility] Comment on above: Performed By: #### L 501.9520, L506.0400, L500.4050, L100.0100, L501.5200 ####[facility] [address] [place], [address] Nucleated RBC (Bld) [#/Vol] 0 10*3/uL Normal 0-5 [facility] Comment on above: Performed By: #### L 501.9520, L506.0400, L500.4050, L100.0100, L501.5200 ####[facility] [address] [place], [address] Platelet mean volume (Bld) [Entitic vol] 11.5 fL Normal 6.2-12.0 [facility] Comment on above: Performed By: #### L 501.9520, L506.0400, L500.4050, L100.0100, L501.5200 ####[facility] [address] [place], [address] Platelets (Bld) [#/Vol] 153 10*3/uL Normal 150-450 [facility] Comment on above: Performed By: #### L 501.9520, L506.0400, L500.4050, L100.0100, L501.5200 ####[facility] [address] [place], [address] RBC (Bld) [#/Vol] 3.82 10*6/uL Low 4.6-6.2 [facility] Comment on above: Performed By: #### L 501.9520, L506.0400, L500.4050, L100.0100, L501.5200 ####[facility] [address] [place], [address] RDW SD 54.5 fl High 35.1-43.9 [facility] Comment on above: Performed By: #### L 501.9520, L506.0400, L500.4050, L100.0100, L501.5200 ####[facility] [address] [place], [address] WBC (Bld) [#/Vol] 8.0 10*3/uL Normal 4.4-11.0 [facility] Comment on above: Performed By: #### L 501.9520, L506.0400, L500.4050, L100.0100, L501.5200 ####[facility] [address] [place], [address] Carbon dioxide, total [Moles /volume] in Central venous bloodOrdered By: Addi Mario on 02-14-2025 CO2 [Moles/Vol] 27.8 mmol/L 21.0-32.0 [facility] Chloride assayOrdered By: Aleah Mario on 02-14-2025 Chloride [Moles/Vol] 101 mmol/L 98-108 [facility] Comprehensive Metabolic Prof ilon 02-14-2025 Albumin [Mass/Vol] 3.9 g/dL Normal 3.4-4.8 [facility] Comment on above: Performed By: #### L 501.9520, L506.0400, L500.4050, L100.0100, L501.5200 ####[facility] [address] [place], [address] Albumin/Globulin [Mass ratio] 1.0 {ratio} Normal 0.9-2.4 [facility] Comment on above: Performed By: #### L 501.9520, L506.0400, L500.4050, L100.0100, L501.5200 ####[facility] [address] [place], [address] ALK PHOS 88 U/L Normal 40-129 [facility] Comment on above: Performed By: #### L 501.9520, L506.0400, L500.4050, L100.0100, L501.5200 ####[facility] [address] [place], [address] ALT [Catalytic activity/Vol] 17 U/L Normal <=46 [facility] Comment on above: Performed By: #### L 501.9520, L506.0400, L500.4050, L100.0100, L501.5200 ####[facility] [address] [place], [address] AST [Catalytic activity/Vol] 28 U/L Normal <=37 [facility] Comment on above: Performed By: #### L 501.9520, L506.0400, L500.4050, L100.0100, L501.5200 ####[facility] [address] [place], [address] Bilirubin [Mass/Vol] 0.37 mg/dL Normal 0.00-1.30 [facility] Comment on above: Performed By: #### L 501.9520, L506.0400, L500.4050, L100.0100, L501.5200 ####[facility] [address] [place], [address] BUN/CRE 23.1 RATIO High 10-20 [facility] Comment on above: Performed By: #### L 501.9520, L506.0400, L500.4050, L100.0100, L501.5200 ####[facility] [address] [place], [address] Calcium [Mass/Vol] 9.8 mg/dL Normal 7.6-11.0 [facility] Comment on above: Performed By: #### L 501.9520, L506.0400, L500.4050, L100.0100, L501.5200 ####[facility] [address] [place], [address] Chloride [Moles/Vol] 101 mmol/L Normal 98-108 [facility] Comment on above: Performed By: #### L 501.9520, L506.0400, L500.4050, L100.0100, L501.5200 ####[facility] [address] [place], [address] CO2 [Moles/Vol] 27.8 mmol/L Normal 21.0-32.0 [facility] Comment on above: Performed By: #### L 501.9520, L506.0400, L500.4050, L100.0100, L501.5200 ####[facility] [address] [place], [address] Creatinine [Mass/Vol] 0.93 mg/dL Normal 0.70-1.20 [facility] Comment on above: Performed By: #### L 501.9520, L506.0400, L500.4050, L100.0100, L501.5200 ####[facility] [address] [place], [address] GAP 10 Normal 5-15 [facility] Comment on above: Performed By: #### L 501.9520, L506.0400, L500.4050, L100.0100, L501.5200 ####[facility] [address] [place], [address] GFR/1.73 sq M.predicted among non-blacks MDRD (S/P/Bld) [Vol rate/Area] 80 mL/min/{1.73_m2} Normal >60 [facility] Comment on above: Result Comment: mL/m in/1.73m2 CKD-EPI Creatinine Equation (2020) Performed By: #### L 501.9520, L506.0400, L500.4050, L100.0100, L501.5200 ####[facility] [address] [place], [address] Globulin (S) [Mass/Vol] 4.0 g/dL Normal 2.2-4.2 [facility] Comment on above: Performed By: #### L 501.9520, L506.0400, L500.4050, L100.0100, L501.5200 ####[facility] [address] [place], [address] Glucose [Mass/Vol] 94 mg/dL Normal 70-99 [facility] Comment on above: Performed By: #### L 501.9520, L506.0400, L500.4050, L100.0100, L501.5200 ####[facility] [address] [place], [address] Potassium [Moles/Vol] 4.0 mmol/L Normal 3.3-5.1 [facility] Comment on above: Performed By: #### L 501.9520, L506.0400, L500.4050, L100.0100, L501.5200 ####[facility] [address] [place], [address] Sodium [Moles/Vol] 138 mmol/L Normal 133-145 [facility] Comment on above: Performed By: #### L 501.9520, L506.0400, L500.4050, L100.0100, L501.5200 ####[facility] [address] [place], [address] T PROT 7.8 g/dL Normal 5.9-8.4 [facility] Comment on above: Performed By: #### L 501.9520, L506.0400, L500.4050, L100.0100, L501.5200 ####[facility] [address] [place], [address] Urea nitrogen [Mass/Vol] 21 mg/dL High 4-19 [facility] Comment on above: Performed By: #### L 501.9520, L506.0400, L500.4050, L100.0100, L501.5200 ####[facility] [address] [place], [address] Eosinophil percentageOrdered By: Addi Mario on 02-14-2025 Eosinophils/100 WBC (Bld) 2.6 % 0-5 [facility] Erythrocyte distribution wid th ratioOrdered By: Addi Mario on 02-14-2025 Erythrocyte distribution width (RBC) [Ratio] 15.4 % High 11.6-14.6 [facility] Erythrocyte distribution wid th standard deviationOrdered By: Addi Mario on 02-14-2025 Erythrocyte distribution width (RBC) [Ratio] 54.5 fl High 35.1-43.9 [facility] Glomerular filtration rate ( GFR) estimation/1.73 sq m using serum, plasma, or whole bOrdered By: Addi Mario on 02-14-2025 GFR/1.73 sq M.predicted among non-blacks MDRD (S/P/Bld) [Vol rate/Area] 80 mL/min/{1.73_m2} >60 [facility] Comment on above: mL/min/1.73m2 CKD-EP I Creatinine Equation (2020) Hematocrit Auto (Bld) [Volum e fraction]Ordered By: Addi Mario on 02-14-2025 Hematocrit (Bld) [Volume fraction] 37.3 % Low 40-54 [facility] Hemoglobin measurementOrdere d By: Addi Mario on 02-14-2025 Hemoglobin (Bld) [Mass/Vol] 12.0 g/dL Low 13.0-16.5 [facility] Immature granulocytes/100 WB C Auto (Bld)Ordered By: Addi Mario on 02-14-2025 Immature granulocytes/100 WBC (Bld) 0.100 % 0.0-0.9 [facility] Comment on above: IG% - Immature Granu locytes (promyelocytes, myelocytes and metamyelocytes) > 1% indicates that a LEFT SHIFT is Present. Internal Medicine Office Vis [place] 02-14-2025 Internal Medicine Office Visit [facility] [address] [place] [address] [place] [address] OFFICE VISIT Date of Service: 02/14/25 MR#: [id number] Acct: [id number] Name: JESSEE RUST Rep #: [id number] : 1935 Provider: Dr. 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 Normal [facility] Laboratory - Chemistry and C hemistry - challengeOrdered By: Addi Mario on 02-14-2025 AST [Catalytic activity/Vol] 28 U/L <38 [facility] MCV (mean corpuscular volume ) determinationOrdered By: Addi Mario on 02-14-2025 MCV (RBC) [Entitic vol] 97.6 fL High 80-94 [facility] Magnesiumon 02-14-2025 Magnesium [Mass/Vol] 2.1 mg/dL Normal 1.5-2.2 [facility] Comment on above: Performed By: #### L 501.9520, L506.0400, L500.4050, L100.0100, L501.5200 ####[facility] [address] [place], [address] Magnesium measurement (mass/ volume)Ordered By: Addi Mario on 02-14-2025 Magnesium (Unsp spec) [Mass/Vol] 2.1 mg/dL 1.5-2.2 [facility] Mean corpuscular hemoglobin (MCH) determinationOrdered By: Addi Mario on 02-14-2025 MCH (RBC) [Entitic mass] 31.4 pg 27.0-32.0 [facility] Mean corpuscular hemoglobin concentration (MCHC) determinationOrdered By: Addi Mario on 02-14-2025 MCHC (RBC) [Mass/Vol] 32.2 g/dL 32-36 [facility] Mean platelet volume determi nationOrdered By: Addi Mario on 02-14-2025 Platelet mean volume (Bld) [Entitic vol] 11.5 fL 6.2-12.0 [facility] Monocyte percentageOrdered B y: Addi Mario on 02-14-2025 Monocytes/100 WBC (Bld) 9.7 % 0-10 [facility] Neutrophil percentageOrdered By: Addi Mario on 02-14-2025 Neutrophils/100 WBC (Bld) 58.5 % 47-70 [facility] Nucleated red blood cell per centageOrdered By: Addi Mario on 02-14-2025 Nucleated RBC/100 WBC (Bld) [Ratio] 0 % 0-5 [facility] Platelet countOrdered By: Aleah Mario on 02-14-2025 Platelets (Bld) [#/Vol] 153 10*3/uL 150-450 [facility] Potassium measurement (mass/ volume)Ordered By: Addi Mario on 02-14-2025 Potassium (Unsp spec) [Mass/Vol] 4.0 mmol/L 3.3-5.1 [facility] RBC Auto (Bld) [#/Vol]Ordere d By: Addi Mario on 02-14-2025 RBC (Bld) [#/Vol] 3.82 10*6/uL Low 4.6-6.2 [facility] Serum creatinine measurement (mass/volume)Ordered By: Addi Mario on 02-14-2025 Creatinine [Mass/Vol] 0.93 mg/dL 0.70-1.20 [facility] Serum globulin measurementOr dered By: Addi Mario on 02-14-2025 Globulin (S) [Mass/Vol] 4.0 g/dL 2.2-4.2 [facility] Serum glucose measurement (m ass/volume)Ordered By: Addi Mario on 02-14-2025 Glucose [Mass/Vol] 94 mg/dL 70-99 [facility] Serum or plasma alanine castellano otransferase (ALT) measurementOrdered By: Addi Mario on 02-14-2025 ALT [Catalytic activity/Vol] 17 U/L <47 [facility] Serum or plasma albumin tay urement (mass/volume)Ordered By: Addi Mario on 02-14-2025 Albumin [Mass/Vol] 3.9 g/dL 3.4-4.8 [facility] Serum or plasma albumin/glob ulin mass ratioOrdered By: Addi Mario on 02-14-2025 Albumin/Globulin [Mass ratio] 1.0 {ratio} 0.9-2.4 [facility] Serum or plasma alkaline lyndsey sphatase measurementOrdered By: Addi Olerubina on 02-14-2025 ALP [Catalytic activity/Vol] 88 U/L 40-129 [facility] Serum or plasma calcium tay urement (mass/volume)Ordered By: Addi Joorubina on 02-14-2025 Calcium [Mass/Vol] 9.8 mg/dL 7.6-11.0 [facility] Serum or plasma urea nitroge n measurement (mass/volume)Ordered By: Addi Joorubina on 02-14-2025 Urea nitrogen [Mass/Vol] 21 mg/dL High 4-19 [facility] Sodium levelOrdered By: Arleth Mario on 02-14-2025 Sodium [Moles/Vol] 138 mmol/L 133-145 [facility] T4 Free Directon 02-14-2025 T4 FREE DIRECT 1.10 ng/dL Normal 0.76-1.46 [facility] Comment on above: Performed By: #### L 501.9520, L506.0400, L500.4050, L100.0100, L501.5200 ####[facility] [address] [place], [place], [id number] T4 freeOrdered By: Aleahzackerykajal Joocarissamaria del carmen on 02-14-2025 Free T4 [Mass/Vol] 1.10 ng/dL 0.76-1.46 [facility] TSH DL <= 0.005 mIU/L QnOrde red By: Aleahzackeryjimlilli Gecarissamaria del carmen on 02-14-2025 TSH Qn 2.190 uIU/mL 0.300-4.200 [facility] Thyroid Stim Hormone (TSH)on 02-14-2025 TSH 2.190 uIU/mL Normal 0.300-4.200 [facility] Comment on above: Performed By: #### L 501.9520, L506.0400, L500.4050, L100.0100, L501.5200 ####[facility] [address] [place], [place], [address] Total proteinOrdered By: Sonny spence Joocarissamaria del carmen on 02-14-2025 Protein [Mass/Vol] 7.8 g/dL 5.9-8.4 [facility] Vitamin B12 ser/plasOrdered By: Addi Mario on 02-14-2025 Cobalamin (Vitamin B12) [Mass/Vol] 425 pg/mL 180-914 [facility] White blood cell (WBC) count Ordered By: Addi Mario on 02-14-2025 WBC (Bld) [#/Vol] 8.0 10*3/uL 4.4-11.0 [facility] Modified Barium Swallow Stud yon 01-02-2025 Modified Barium Swallow Study [facility] Speech Pathology [address] [place] [address] Modified Barium Swallow Study MR#: [id number] Acct: [id number] Name: JESSEE RUST Rep #: [id number] : 1935 89 From: Jodee Miller M.A., [facility] Modified Barium Swallow Patient Information Study Date: [...] cup: Result: 1= does not enter airway [place] Thick Liquid via large single sip: cup: [...] below phary (more content not included)... Normal [facility] Rubeola IgG Abon 12-29-2024 RUBEOLA Ab, IgG > 300.0 Normal Immune >16.4 [facility] Comment on above: Result Comment: Nega tive <13.5 Equivocal 13.5 - 16.4 Positive >16.4 Presence of antibodies to Rubeola is presumptive evidence of immunity except when acute infection is suspected. Performed at: [address] [id number] Rug Measurer: Herber Lindquist PhD, Phone: [phone] Performed By: #### L 3100.3300, L503.0106 #### [facility] Laboratory [address] [place], [address] MeV IgG IA Qn (S)Ordered By: Addi Mario on 12-27-2024 Rubeola (Measles) IgG Antibody > 300.0 AU/mL Immune >16.4 [facility] Comment on above: Negative <13.5 Equiv ocal 13.5 - 16.4 Positive >16.4Presence of antibodies to Rubeola is presumptive evidenceof immunity except when acute infection is suspected.Performed at: [facility] [employer] [id number] Director: Herber Lindquist PhD, Phone: [phone] Serum measles virus IgG anti body assay by immunoassay (units/volume)Ordered By: Addi Mario on 12-27-2024 MeV IgG IA Qn (S) > 300.0 AU/mL Immune >16.4 [facility] Comment on above: Negative <13.5 Equiv ocal 13.5 - 16.4 Positive >16.4Presence of antibodies to Rubeola is presumptive evidenceof immunity except when acute infection is suspected.Performed at: - [facility] [id number] Director: Herber Lindquist PhD, Phone: [phone] Vitamin B12on 12-27-2024 Cobalamin (Vitamin B12) [Mass/Vol] 512 pg/mL Normal 180-914 [facility] Comment on above: Performed By: #### L 3100.3300, L503.0106 #### [facility] Laboratory [address] [place], [place], [address] Vitamin B12 ser/plasOrdered By: Addi Mario on 12-27-2024 Cobalamin (Vitamin B12) [Mass/Vol] 512 pg/mL 180-914 [facility] Pulmonary Visit Reporton Pulmonary Visit Report [facility] [place] 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 Normal [facility] No Panel InformationOrdered By: Efewongbe Oleghe on 11-30-2024 POC SARS CoV-2 Antigen Positive [facility] Office Visit Reporton 2024 Office Visit Report [facility] [address] OFFICE VISIT Date of Service: 11/30/24 MR#: [id number] Acct: [id number] Patient: JESSEE RUST Rep #: [id number] : 1935 Provider: VANNESSA NURSE Age/Sex: 89/M Location: [facility] Status: Signed Intake Vital Signs 11/15/24 15:09 [...] past year?: No 11/30/24 1411 Date Addi Denise Signature: Date (if applicable) CC: [facility] 11-27-2024 CNPN Telephone (OPHTMN) ---- JESSEE RUST ([id number]) 1935 M Date Time Provider Department 11/27/24 [facility] During your visit today, we recorded [...] 70's Date Reviewed: 11/26/2024 Reviewed by: Adela Jarquin, OA - Fully Assessed Prescriptions as of [...] OVERWEIGHT [E66.9] (more content not included)... Normal [facility] OCT OPTIC NERVE CIRRUS OU (B OTH EYES)on 11-26-2024 [facility] Radiology Study observation (narrative) [facility] Absolute lymphocyte countOrd ered By: Addi Mario on 11-15-2024 Lymphocytes Auto (Unsp spec) [#/Vol] 2.07 10*3/uL 0.83-4.51 [facility] Absolute neutrophil countOrd ered By: Addi Mario on 11-15-2024 Neutrophils (Bld) [#/Vol] 4.5 10*3/uL 2.0-7.7 [facility] Automated lymphocyte count a s percentage of total leukocytesOrdered By: Addi Mario on 11-15-2024 Lymphocytes/100 WBC Auto (Unsp spec) 27.1 % 19-41 [facility] BUN/creatinine ratioOrdered By: Addi Mario on 11-15-2024 Urea nitrogen/Creatinine [Mass ratio] 19.3 mg/mg 10-20 [facility] Basic Metabolic Profile (BMP )on 11-15-2024 Anion gap [Moles/Vol] 8 mmol/L Normal 5-15 [facility] Comment on above: Performed By: #### L 503.6550, L503.6150, L500.4100, L503.6075, L100.0100, L500.2500 ####[facility] [address] [place], [address] BUN/CRE 19.3 RATIO Normal 10-20 [facility] Comment on above: Performed By: #### L 503.6550, L503.6150, L500.4100, L503.6075, L100.0100, L500.2500 ####[facility] [address] [place], [address] Calcium [Mass/Vol] 9.6 mg/dL Normal 7.6-11.0 [facility] Comment on above: Performed By: #### L 503.6550, L503.6150, L500.4100, L503.6075, L100.0100, L500.2500 ####[facility] [address] [place], [address] Chloride [Moles/Vol] 102 mmol/L Normal 96-108 [facility] Comment on above: Performed By: #### L 503.6550, L503.6150, L500.4100, L503.6075, L100.0100, L500.2500 ####[facility] [address] [place], [address] CO2 [Moles/Vol] 28.4 mmol/L Normal 22.0-29.0 [facility] Comment on above: Performed By: #### L 503.6550, L503.6150, L500.4100, L503.6075, L100.0100, L500.2500 ####[facility] [address] [place], [address] Creatinine [Mass/Vol] 0.86 mg/dL Normal 0.70-1.20 [facility] Comment on above: Performed By: #### L 503.6550, L503.6150, L500.4100, L503.6075, L100.0100, L500.2500 ####[facility] [address] [place], [address] GFR/1.73 sq M.predicted among non-blacks MDRD (S/P/Bld) [Vol rate/Area] 84 mL/min/{1.73_m2} Normal >60 [facility] Comment on above: Result Comment: mL/m in/1.73m2 CKD-EPI Creatinine Equation (2020) Performed By: #### L 503.6550, L503.6150, L500.4100, L503.6075, L100.0100, L500.2500 ####[facility] [address] [place], [address] Glucose [Mass/Vol] 87 mg/dL Normal 70-99 [facility] Comment on above: Performed By: #### L 503.6550, L503.6150, L500.4100, L503.6075, L100.0100, L500.2500 ####[facility] [address] [place], [address] Potassium [Moles/Vol] 4.4 mmol/L Normal 3.3-5.1 [facility] Comment on above: Performed By: #### L 503.6550, L503.6150, L500.4100, L503.6075, L100.0100, L500.2500 ####[facility] [address] [place], [address] Sodium [Moles/Vol] 139 mmol/L Normal 133-145 [facility] Comment on above: Performed By: #### L 503.6550, L503.6150, L500.4100, L503.6075, L100.0100, L500.2500 ####[facility] [address] [place], [address] Urea nitrogen [Mass/Vol] 17 mg/dL Normal 4-19 [facility] Comment on above: Performed By: #### L 503.6550, L503.6150, L500.4100, L503.6075, L100.0100, L500.2500 ####[facility] [address] [place], [address] Basophil percentageOrdered B y: Addi Mario on 11-15-2024 Basophils/100 WBC (Bld) 0.5 % 0-1 [facility] CBC W/Diff, Automatedon 10-21 Absolute Lymph 2.07 X10 3/uL Normal 0.83-4.51 [facility] Comment on above: Performed By: #### L 503.6550, L503.6150, L500.4100, L503.6075, L100.0100, L500.2500 #### [facility] Laboratory [address] [place], [address] Absolute Neut 4.5 X10 3/uL Normal 2.0-7.7 [facility] Comment on above: Performed By: #### L 503.6550, L503.6150, L500.4100, L503.6075, L100.0100, L500.2500 #### [facility] [address] [place], [address] Basophils/100 WBC (Bld) 0.5 % Normal 0-1 [facility] Comment on above: Performed By: #### L 503.6550, L503.6150, L500.4100, L503.6075, L100.0100, L500.2500 #### [facility] [address] [place], [address] Eosinophils/100 WBC (Bld) 2.2 % Normal 0-5 [facility] Comment on above: Performed By: #### L 503.6550, L503.6150, L500.4100, L503.6075, L100.0100, L500.2500 #### [facility] [address] [place], [address] Erythrocyte distribution width (RBC) [Ratio] 14.4 % Normal 11.6-14.6 [facility] Comment on above: Performed By: #### L 503.6550, L503.6150, L500.4100, L503.6075, L100.0100, L500.2500 #### [facility] [address] [place], [address] Hematocrit (Bld) [Volume fraction] 38.2 % Low 40-54 [facility] Comment on above: Performed By: #### L 503.6550, L503.6150, L500.4100, L503.6075, L100.0100, L500.2500 #### [facility] [address] [place], [address] Hemoglobin (Bld) [Mass/Vol] 12.1 g/dL Low 13.0-16.5 [facility] [facility] Comment on above: Performed By: #### L 503.6550, L503.6150, L500.4100, L503.6075, L100.0100, L500.2500 #### [facility] [address] [place], [address] IG% 0.400 Normal 0.0-0.9 [facility] Comment on above: Result Comment: IG% - Immature Granulocytes (promyelocytes, myelocytes and metamyelocytes) > 1% indicates that a LEFT SHIFT is Present. Performed By: #### L 503.6550, L503.6150, L500.4100, L503.6075, L100.0100, L500.2500 #### [facility] [address] [place], [address] Lymphocytes/100 WBC (Bld) 27.1 % Normal 19-41 [facility] Comment on above: Performed By: #### L 503.6550, L503.6150, L500.4100, L503.6075, L100.0100, L500.2500 #### [facility] [address] [place], [address] MCH (RBC) [Entitic mass] 31.5 pg Normal 27.0-32.0 [facility] Comment on above: Performed By: #### L 503.6550, L503.6150, L500.4100, L503.6075, L100.0100, L500.2500 #### [facility] [address] [place], [address] MCHC (RBC) [Mass/Vol] 31.7 g/dL Low 32-36 [facility] Comment on above: Performed By: #### L 503.6550, L503.6150, L500.4100, L503.6075, L100.0100, L500.2500 #### [facility] [address] [place], [address] MCV (RBC) [Entitic vol] 99.5 fL High 80-94 [facility] Comment on above: Performed By: #### L 503.6550, L503.6150, L500.4100, L503.6075, L100.0100, L500.2500 #### [facility] [address] [place], [address] Monocytes/100 WBC (Bld) 11.1 % High 0-10 [facility] Comment on above: Performed By: #### L 503.6550, L503.6150, L500.4100, L503.6075, L100.0100, L500.2500 #### [facility] [address] [place], [address] Neutrophils/100 WBC (Bld) 58.7 % Normal 47-70 [facility] Comment on above: Performed By: #### L 503.6550, L503.6150, L500.4100, L503.6075, L100.0100, L500.2500 #### [facility] [address] [place], [address] Nucleated RBC (Bld) [#/Vol] 0 10*3/uL Normal 0-5 [facility] Comment on above: Performed By: #### L 503.6550, L503.6150, L500.4100, L503.6075, L100.0100, L500.2500 #### [facility] [address] [place], [address] Platelet mean volume (Bld) [Entitic vol] 11.3 fL Normal 6.2-12.0 [facility] Comment on above: Performed By: #### L 503.6550, L503.6150, L500.4100, L503.6075, L100.0100, L500.2500 #### [facility] [address] [place], [address] Platelets (Bld) [#/Vol] 142 10*3/uL Low 150-450 [facility] Comment on above: Performed By: #### L 503.6550, L503.6150, L500.4100, L503.6075, L100.0100, L500.2500 #### [facility] [address] [place], [address] RBC (Bld) [#/Vol] 3.84 10*6/uL Low 4.6-6.2 [facility] Comment on above: Performed By: #### L 503.6550, L503.6150, L500.4100, L503.6075, L100.0100, L500.2500 #### [facility] [address] [place], [address] RDW SD 52.8 fl High 35.1-43.9 [facility] Comment on above: Performed By: #### L 503.6550, L503.6150, L500.4100, L503.6075, L100.0100, L500.2500 #### [facility] [address] [place], [address] WBC (Bld) [#/Vol] 7.6 10*3/uL Normal 4.4-11.0 [facility] Comment on above: Performed By: #### L 503.6550, L503.6150, L500.4100, L503.6075, L100.0100, L500.2500 #### [facility] [address] [place], [place], [id number] Calculated total iron bindin g capacityOrdered By: Addi Mario on 11-15-2024 Total Iron Binding Capacity 289 ug/dL 250-450 [facility] Calculated very low density lipoprotein (VLDL) cholesterol measurementOrdered By: Addi Mario on 11-15-2024 Calculated very low density lipoprotein (VLDL) cholesterol measurement 18 mg/dL 5-40 [facility] VLDL Cholesterol 18 mg/dL -40 [facility] Carbon dioxide measurementOr dered By: Addi Mario on 11-15-2024 CO2 [Moles/Vol] 28.4 mmol/L 22.0-29.0 [facility] Chloride measurementOrdered By: Addi Mario on 11-15-2024 Chloride [Moles/Vol] 102 mmol/L 96-108 [facility] Eosinophil percentageOrdered By: josh Mario on 11-15-2024 Eosinophils/100 WBC (Bld) 2.2 % 0-5 [facility] Erythrocyte distribution wid th ratioOrdered By: [facility] Mario on 11-15-2024 Erythrocyte distribution width (RBC) [Ratio] 14.4 % 11.6-14.6 [facility] Erythrocyte distribution wid th standard deviationOrdered By: zackeryracelandlilli Gecarissamaria del carmen on 11-15-2024 Erythrocyte distribution width (RBC) [Entitic vol] 52.8 fL High 35.1-43.9 [facility] Erythrocyte distribution width (RBC) [Ratio] 52.8 fl High 35.1-43.9 [facility] Ferritinon 11-15-2024 Ferritin [Mass/Vol] 71 ng/mL Normal 37-417 [facility] Comment on above: Performed By: #### L 503.6550, L503.6150, L500.4100, L503.6075, L100.0100, L500.2500 ####[facility] [address] [place], [address] GFR/1.73 sq M.predicted radha g non-blacks MDRD (S/P/Bld) [Vol rate/Area]Ordered By: Addi Mario on 11-15-2024 Estimated GFR (MDRD) Non-Af Amer 84 >60 [facility] Comment on above: mL/min/1.73m2 CKD-EP I Creatinine Equation (2020) Glomerular filtration rate ( GFR) estimation/1.73 sq m using serum, plasma, or whole bOrdered By: Addi Mario on 11-15-2024 GFR/1.73 sq M.predicted among non-blacks MDRD (S/P/Bld) [Vol rate/Area] 84 mL/min/{1.73_m2} >60 [facility] Comment on above: mL/min/1.73m2 CKD-EP I Creatinine Equation (2020) Hematocrit Auto (Bld) [Volum e fraction]Ordered By: Addi Mario on 11-15-2024 Hematocrit (Bld) [Volume fraction] 38.2 % Low 40-54 [facility] Hemoglobin measurementOrdere d By: Addi Mario on 11-15-2024 Hemoglobin (Bld) [Mass/Vol] 12.1 g/dL Low 13.0-16.5 [facility] Immature granulocytes/100 WB C Auto (Bld)Ordered By: Addi Mario on 11-15-2024 Immature granulocytes/100 WBC (Bld) 0.400 % 0.0-0.9 [facility] Comment on above: IG% - Immature Granu locytes (promyelocytes, myelocytes and metamyelocytes) > 1% indicates that a LEFT SHIFT is Present. Internal Medicine Office Vis it[place] 11-15-2024 Internal Medicine Office Visit [facility] [address] [place] [address] [place] [address] OFFICE VISIT Date of Service: 11/15/24 MR#: [id number] Acct: [id number] Name: JESSEE RUST Rep #: [id number] : 1935 Provider: Dr. Addi alvarado MD Age/Sex: 89/M Location: [facility] Status: Signed Intake Vital Signs 08/15/24 14:31 [...] DAILY Eye 1 10/15/22 11/15/24 History drops qwgmcmwl-sri-bwede acid 0.4 1 tab PO DAILY supplement [...] hydrocortisone 2.5 % topical cream 1 applic CO BID-QID PRN 01/04/24 11/15/24 Rx with perineal [...] pt has c/o of issues with swallowing. [facility] Medical History (Updated 11/15/24 @ 15:32 by [...] Bradycardia Nonrheumati (more content not included)... Normal [facility] Ironon 11-15-2024 Iron [Mass/Vol] 50 ug/dL Low 65-175 [facility] Comment on above: Performed By: #### L 503.6550, L503.6150, L500.4100, L503.6075, L100.0100, L500.2500 ####[facility] [address] [place], [address] Iron (Unsp spec) [Mass/Mass] Ordered By: Addi Mario on 11-15-2024 Iron [Mass/Vol] 50 ug/dL Low 65-175 [facility] Iron Binding Capacity,Totalo n 11-15-2024 TIBC 289 ug/dL Normal 250-450 [facility] Comment on above: Performed By: #### L 503.6550, L503.6150, L500.4100, L503.6075, L100.0100, L500.2500 ####[facility] [address] [place], [place], [phone]) Iron measurement (mass/mass) Ordered By: Addi Mario on 11-15-2024 Iron (Unsp spec) [Mass/Mass] 50 ug/dL Low 65-175 [facility] LDL calc ser/plasOrdered By: Addi Mario on 11-15-2024 Cholesterol in LDL [Mass/Vol] 55 mg/dL [facility] Comment on above: Imahpssyrc=698-585 m g/dL & Higher Funv=124 mg/dL or greater LDL Cholesterol, Calculated 55 mg/dL [facility] Comment on above: Sshoagxpdw=135-016 m g/dL & Higher Vdib=988 mg/dL or greater Lipid Profileon 11-15-2024 CHOL:HDL 2.40 Normal [facility] Comment on above: Performed By: #### L 503.6550, L503.6150, L500.4100, L503.6075, L100.0100, L500.2500 ####[facility] [address] [place], [address] Cholesterol [Mass/Vol] 126 mg/dL Normal <=200 [facility] Comment on above: Result Comment: Chol esterol level, Desirable <200 mg/dL Borderline high cholesterol 200-239 mg/dL High cholesterol >=240 mg/dL Recommendations of the NCEP Adult Treatment Panel for the following risk-cutoff thresholds for the [place] population. Performed By: #### L 503.6550, L503.6150, L500.4100, L503.6075, L100.0100, L500.2500 ####[facility] [address] [place], [address] Cholesterol in HDL [Mass/Vol] 52 mg/dL Normal [facility] Comment on above: Result Comment: Dede onal Cholesterol Education Program (NCEP) guidelines: <40 mg/dL: Low HDL-cholesterol (major risk factor for CHD) >= 60 mg/dL: High HDL-cholesterol (negative risk factor for CHD) HDL-cholesterol is affected by a number of factors, e.g. smoking, exercise, hormones, sex and age. Performed By: #### L 503.6550, L503.6150, L500.4100, L503.6075, L100.0100, L500.2500 ####[facility] [address] [place], [address] Cholesterol in LDL [Mass/Vol] 55 mg/dL Normal [facility] Comment on above: Result Comment: Bord fqazrp=442-634 mg/dL Higher Nwdb=726 mg/dL or greater Performed By: #### L 503.6550, L503.6150, L500.4100, L503.6075, L100.0100, L500.2500 ####[facility] [address] [place], [address] Cholesterol in VLDL [Mass/Vol] 18 mg/dL Normal 5-40 [facility] Comment on above: Performed By: #### L 503.6550, L503.6150, L500.4100, L503.6075, L100.0100, L500.2500 ####[facility] [address] [place], [address] Triglyceride [Mass/Vol] 91 mg/dL Normal [facility] Comment on above: Result Comment: The drugs N-Acetylcysteine and Metamizole may falsely depress this assay. Normal range: <150 mg/dL Borderline High: 150-199 mg/dL High: 200-499 mg/dL Very High: >500 mg/dL Performed By: #### L 503.6550, L503.6150, L500.4100, L503.6075, L100.0100, L500.2500 ####[facility] [address] [place], [place], [id number] Lymphocytes Auto (Unsp spec) [#/Vol]Ordered By: Addi Mario on 11-15-2024 Lymphocytes (Bld) [#/Vol] 2.07 10*3/uL 0.83-4.5 1 [facility] Lymphocytes/100 WBC Auto (Un sp spec)Ordered By: Addi Mario on 11-15-2024 Lymphocytes/100 WBC (Bld) 27.1 % 19-41 [facility] MCV (mean corpuscular volume ) determinationOrdered By: Addi Mario on 11-15-2024 MCV (RBC) [Entitic vol] 99.5 fL High 80-94 [facility] Mean corpuscular hemoglobin (MCH) determinationOrdered By: Addi Mario on 11-15-2024 MCH (RBC) [Entitic mass] 31.5 pg 27.0-32.0 [facility] Mean corpuscular hemoglobin concentration (MCHC) determinationOrdered By: Addi Mario on 11-15-2024 MCHC (RBC) [Mass/Vol] 31.7 g/dL Low 32-36 [facility] Mean platelet volume determi nationOrdered By: Addi Mario on 11-15-2024 Platelet mean volume (Bld) [Entitic vol] 11.3 fL 6.2-12.0 [facility] Monocyte percentageOrdered B y: Addi Mario on 11-15-2024 Monocytes/100 WBC (Bld) 11.1 % High 0-10 [facility] Neutrophil percentageOrdered By: Addi Mario on 11-15-2024 Neutrophils/100 WBC (Bld) 58.7 % 47-70 [facility] Nucleated red blood cell per centageOrdered By: Addi Mario on 11-15-2024 Nucleated RBC/100 WBC (Bld) [Ratio] 0 % 0-5 [facility] Platelet countOrdered By: Aleah Mario on 11-15-2024 Platelets (Bld) [#/Vol] 142 10*3/uL Low 150-450 [facility] RBC Auto (Bld) [#/Vol]Ordere d By: Addi Mario on 11-15-2024 RBC (Bld) [#/Vol] 3.84 10*6/uL Low 4.6-6.2 [facility] Screening total cholesterol/ high density lipoprotein (HDL) cholesterol ratioOrdered By: Addi Mario on 11-15-2024 Cholesterol.total/Cholest aust[place] in HDL [Mass ratio] 2.40 {ratio} [facility] Serum creatinine measurement (mass/volume)Ordered By: Addi Mario on 11-15-2024 Creatinine [Mass/Vol] 0.86 mg/dL 0.70-1.20 [facility] Serum glucose measurement (m ass/volume)Ordered By: Addi Mario on 11-15-2024 Glucose [Mass/Vol] 87 mg/dL 70-99 [facility] Serum or plasma anion gap de termination (moles/volume)Ordered By: Addi Mario on 11-15-2024 Anion gap [Moles/Vol] 8 mmol/L 5-15 [facility] Serum or plasma calcium tay urement (mass/volume)Ordered By: Addi Mario on 11-15-2024 Calcium [Mass/Vol] 9.6 mg/dL 7.6-11.0 [facility] Serum or plasma cholesterol in HDL measurement (mass/volume)Ordered By: Addi Mario on 11-15-2024 Cholesterol in HDL [Mass/Vol] 52 mg/dL >40 [facility] Comment on above: National Cholesterol Education Program (NCEP) guidelines:<40 mg/dL: Low HDL-cholesterol (major risk factor for CHD)>= 60 mg/dL: High HDL-cholesterol (negative risk factor for CHD)HDL-cholesterol is affected by a number of factors, e.g. smoking, exercise, hormones, sex and age. Serum or plasma cholesterol measurement (mass/volume)Ordered By: Addi Mario on 11-15-2024 Cholesterol [Mass/Vol] 126 mg/dL <201 [facility] Comment on above: Cholesterol level, D esirable <200 mg/dLBorderline high cholesterol 200-239 mg/dLHigh cholesterol >=240 mg/dLRecommendations of the NCEP Adult Treatment Panel for the following risk-cutoff thresholds for the [place] population. Serum or plasma ferritin precious surement (mass/volume)Ordered By: Addi Mario on 11-15-2024 Ferritin [Mass/Vol] 71 ng/mL 37-417 [facility] Serum or plasma potassium me asurementOrdered By: Addi Mario on 11-15-2024 Potassium [Moles/Vol] 4.4 mmol/L 3.3-5.1 [facility] Serum or plasma sodium measu rement (moles/volume)Ordered By: Addi Mario on 11-15-2024 Sodium [Moles/Vol] 139 mmol/L 133-145 [facility] Serum or plasma urea nitroge n measurement (mass/volume)Ordered By: Addi Mario on 11-15-2024 Urea nitrogen [Mass/Vol] 17 mg/dL 4-19 [facility] Triglycerides measurementOrd ered By: Addi Mario on 11-15-2024 Triglyceride [Mass/Vol] 91 mg/dL <199 [facility] Comment on above: The drugs N-Acetylcy steine and Metamizole may falsely depress this assay. Normal range: <150 mg/dLBorderline High: 150-199 mg/dLHigh: 200-499 mg/dLVery High: >500 mg/dL White blood cell (WBC) count Ordered By: Addi Mario on 11-15-2024 WBC (Bld) [#/Vol] 7.6 10*3/uL 4.4-11.0 [facility] Cardiology Visit Reporton Cardiology Visit Report [facility] [address] [place] [address] OFFICE VISIT Date of Service: 10/23/24 MR#: [id number] Acct: [id number] Name: JESSEE RUST Rep #: [id number] : 1935 Provider: BASSEM Murcia Age/Sex: 89/M Location: [facility] Status: Signed HPI HPI History of Present [...] evidence of ischemia. He was evaluated at [facility] in November 2023 for non-ST myocardial infarction. 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 [facility] 10-03-2024 [facility] Telephone (OPHTMN) ---- JESSEE RUST ([id number]) 1935 M Date Time Provider Department 10/03/24 [...] what should he do at this point? [phone] he was offered an appt on 10/08 at [place] but he declined Shawn Shea MD filed at 07/30/2024 2:11 PM Status: Signed New from [place] Tmax: <22; Pachy: -, - Lasers and Surgeries: OD:CEIOL OS:11/2022 Selected laser trabeculoplasty (SLT) Selected laser trabeculoplasty (SLT) previous yrs CEIOL Ocular Medication Intol and Non-efficacy: Bradycardia = BB Now on alphagan /, rocklatan 09/19 Next on alphagan 11/19, rocklatan [...] - Hives Comments: Had hives in the 70s Date Reviewed: 08/14/2024 Reviewed by: Priya Saleh OD - Fully Assessed Reason for Visit: [...] 3 ta (more content not included)... Normal [facility] Absolute neutrophil countOrd ered By: Addi Mario on 08-15-2024 Neutrophils (Bld) [#/Vol] 3.2 10*3/uL 2.0-7.7 [facility] Albumin to globulin ratioOrd ered By: Addi Mario on 08-15-2024 Albumin/Globulin [Mass ratio] 0.7 {ratio} Low 0.9-2.4 [facility] Basophil percentageOrdered B y: Addi Mario on 08-15-2024 Basophils/100 WBC (Bld) 0.7 % 0-1 [facility] Bilirubin, totalOrdered By: Addi Mario on 08-15-2024 Bilirubin [Mass/Vol] 0.50 mg/dL 0.20-1.00 [facility] Comment on above: For patients on eltr ombopag therapy, use of Dimension [place] TBIL is not recommended. Blood urea nitrogen (BUN)/cr eatinine ratioOrdered By: Addi Mario on 08-15-2024 Urea nitrogen/Creatinine [Mass ratio] 15.4 mg/mg 10-20 [facility] CBC W/Diff, Automatedon 11-2 Absolute Lymph 1.84 X10 3/uL Normal 0.83-4.51 [facility] Comment on above: Performed By: #### L 503.0105, L100.0100, L500.4050 ####[facility] [address] [place], [address] Absolute Neut 3.2 X10 3/uL Normal 2.0-7.7 [facility] Comment on above: Performed By: #### L 503.0105, L100.0100, L500.4050 ####[facility] [address] [place], [address] Basophils/100 WBC (Bld) 0.7 % Normal 0-1 [facility] Comment on above: Performed By: #### L 503.0105, L100.0100, L500.4050 ####[facility] [address] [place], [address] Eosinophils/100 WBC (Bld) 3.2 % Normal 0-5 [facility] Comment on above: Performed By: #### L 503.0105, L100.0100, L500.4050 ####[facility] [address] [place], [address] Erythrocyte distribution width (RBC) [Ratio] 14.6 % Normal 11.6-14.6 [facility] Comment on above: Performed By: #### L 503.0105, L100.0100, L500.4050 ####[facility] [address] [place], [address] Hematocrit (Bld) [Volume fraction] 38.7 % Low 40-54 [facility] Comment on above: Performed By: #### L 503.0105, L100.0100, L500.4050 ####[facility] [address] [place], [address] Hemoglobin (Bld) [Mass/Vol] 12.5 g/dL Low 13.0-16.5 [facility] Comment on above: Performed By: #### L 503.0105, L100.0100, L500.4050 ####[facility] [address] [place], [address] IG% 0.300 Normal 0.0-0.9 [facility] Comment on above: Result Comment: IG% - Immature Granulocytes (promyelocytes, myelocytes and metamyelocytes) > 1% indicates that a LEFT SHIFT is Present. Performed By: #### L 503.0105, L100.0100, L500.4050 ####[facility] [address] [place], [address] Lymphocytes/100 WBC (Bld) 31.2 % Normal 19-41 [facility] Comment on above: Performed By: #### L 503.0105, L100.0100, L500.4050 ####[facility] [address] [place], [address] MCH (RBC) [Entitic mass] 31.7 pg Normal 27.0-32.0 [facility] Comment on above: Performed By: #### L 503.0105, L100.0100, L500.4050 ####[facility] [address] [place], [address] MCHC (RBC) [Mass/Vol] 32.3 g/dL Normal 32-36 [facility] Comment on above: Performed By: #### L 503.0105, L100.0100, L500.4050 ####[facility] [address] [place], [address] MCV (RBC) [Entitic vol] 98.2 fL High 80-94 [facility] Comment on above: Performed By: #### L 503.0105, L100.0100, L500.4050 ####[facility] [address] [place], [address] Monocytes/100 WBC (Bld) 10.5 % High 0-10 [facility] Comment on above: Performed By: #### L 503.0105, L100.0100, L500.4050 ####[facility] [address] [place], [address] Neutrophils/100 WBC (Bld) 54.1 % Normal 47-70 [facility] Comment on above: Performed By: #### L 503.0105, L100.0100, L500.4050 ####[facility] [address] [place], [address] Nucleated RBC (Bld) [#/Vol] 0 10*3/uL Normal 0-5 [facility] Comment on above: Performed By: #### L 503.0105, L100.0100, L500.4050 ####[facility] [address] [place], [address] Platelet mean volume (Bld) [Entitic vol] 11.3 fL Normal 6.2-12.0 [facility] Comment on above: Performed By: #### L 503.0105, L100.0100, L500.4050 ####[facility] [address] [place], [address] Platelets (Bld) [#/Vol] 129 10*3/uL Low 150-450 [facility] Comment on above: Performed By: #### L 503.0105, L100.0100, L500.4050 ####[facility] [address] [place], [address] RBC (Bld) [#/Vol] 3.94 10*6/uL Low 4.6-6.2 [facility] Comment on above: Performed By: #### L 503.0105, L100.0100, L500.4050 ####[facility] [address] [place], [address] RDW SD 53.1 fl High 35.1-43.9 [facility] Comment on above: Performed By: #### L 503.0105, L100.0100, L500.4050 ####[facility] [address] [place], [address] WBC (Bld) [#/Vol] 5.9 10*3/uL Normal 4.4-11.0 [facility] Comment on above: Performed By: #### L 503.0105, L100.0100, L500.4050 ####[facility] [address] [place], [address] Carbon dioxide measurementOr dered By: Addi Mario on 08-15-2024 CO2 [Moles/Vol] 31.0 mmol/L 21.0-32.0 [facility] Chloride measurementOrdered By: Addi Mario on 08-15-2024 Chloride [Moles/Vol] 104 mmol/L 98-107 [facility] Comprehensive Metabolic Prof ilon 08-15-2024 Albumin [Mass/Vol] 3.3 g/dL Normal 3.2-5.0 [facility] Comment on above: Performed By: #### L 503.0105, L100.0100, L500.4050 ####[facility] [address] [place], [address] Albumin/Globulin [Mass ratio] 0.7 {ratio} Low 0.9-2.4 [facility] Comment on above: Performed By: #### L 503.0105, L100.0100, L500.4050 ####[facility] [address] [place], [address] ALK P 91 U/L Normal 45-117 [facility] Comment on above: Performed By: #### L 503.0105, L100.0100, L500.4050 ####[facility] [address] [place], [address] ALT [Catalytic activity/Vol] 21 U/L Normal 16-61 [facility] Comment on above: Performed By: #### L 503.0105, L100.0100, L500.4050 ####[facility] [address] [place], [address] AST [Catalytic activity/Vol] 27 U/L Normal 15-37 [facility] Comment on above: Performed By: #### L 503.0105, L100.0100, L500.4050 ####[facility] [address] [place], [address] Bilirubin [Mass/Vol] 0.50 mg/dL Normal 0.20-1.00 [facility] Comment on above: Result Comment: For patients on eltrombopag therapy, use of Dimension [place] TBIL is not recommended. Performed By: #### L 503.0105, L100.0100, L500.4050 ####[facility] [address] [place], [address] BUN/CRE 15.4 RATIO Normal 10-20 [facility] Comment on above: Performed By: #### L 503.0105, L100.0100, L500.4050 ####[facility] [address] [place], [address] CA,Total 9.6 mg/dL Normal 8.5-10.1 [facility] Comment on above: Performed By: #### L 503.0105, L100.0100, L500.4050 ####[facility] [address] [place], [address] Chloride [Moles/Vol] 104 mmol/L Normal 98-107 [facility] Comment on above: Performed By: #### L 503.0105, L100.0100, L500.4050 ####[facility] [address] [place], [address] CO2 [Moles/Vol] 31.0 mmol/L Normal 21.0-32.0 [facility] Comment on above: Performed By: #### L 503.0105, L100.0100, L500.4050 ####[facility] [address] [place], [address] Creatinine [Mass/Vol] 1.04 mg/dL Normal 0.70-1.30 [facility] Comment on above: Result Comment: The validity of the calculated GFR GFRAA in patients over 70 years has not been determined. Clinical correlation is essential. Performed By: #### L 503.0105, L100.0100, L500.4050 ####[facility] [address] [place], [address] EST GFR - AA 87 mL/min Normal >60 [facility] Comment on above: Result Comment: Afri can [facility] GFR Calc Performed By: #### L 503.0105, L100.0100, L500.4050 ####[facility] [address] [place], [address] GAP 5 Normal 5-15 [facility] Comment on above: Performed By: #### L 503.0105, L100.0100, L500.4050 ####[facility] [address] [place], [address] GFR/1.73 sq M.predicted among non-blacks MDRD (S/P/Bld) [Vol rate/Area] 72 mL/min/{1.73_m2} Normal >60 [facility] Comment on above: Result Comment: Non- GFR Calc Performed By: #### L 503.0105, L100.0100, L500.4050 ####[facility] [address] [place], [address] Globulin (S) [Mass/Vol] 4.7 g/dL High 2.2-4.2 [facility] Comment on above: Performed By: #### L 503.0105, L100.0100, L500.4050 ####[facility] [address] [place], [address] Glucose [Mass/Vol] 108 mg/dL High 74-106 [facility] Comment on above: Result Comment: Fast ing Glucose result from 100 to 125 mg/dL suggests IMPAIRED HOMEOSTASIS per A.D.A. criteria. Performed By: #### L 503.0105, L100.0100, L500.4050 ####[facility] [address] [place], [address] Potassium [Moles/Vol] 3.9 mmol/L Normal 3.5-5.1 [facility] Comment on above: Performed By: #### L 503.0105, L100.0100, L500.4050 ####[facility] [address] [place], [address] Sodium [Moles/Vol] 140 mmol/L Normal 136-145 [facility] Comment on above: Performed By: #### L 503.0105, L100.0100, L500.4050 ####[facility] [address] [place], [address] T PROT 8.0 g/dL Normal 6.4-8.2 [facility] Comment on above: Performed By: #### L 503.0105, L100.0100, L500.4050 ####[facility] [address] [place], [address] Urea nitrogen [Mass/Vol] 16 mg/dL Normal 7-18 [facility] Comment on above: Performed By: #### L 503.0105, L100.0100, L500.4050 ####[facility] [address] [place], [address] Eosinophil percentageOrdered By: Efjosh Mario on 08-15-2024 Eosinophils/100 WBC (Bld) 3.2 % 0-5 [facility] Erythrocyte distribution wid th ratioOrdered By: Addi Amesmaria del carmen on 08-15-2024 Erythrocyte distribution width (RBC) [Ratio] 14.6 % 11.6-14.6 [facility] Erythrocyte distribution wid th standard deviationOrdered By: billylilli Gecarissamaria del carmen on 08-15-2024 Erythrocyte distribution width (RBC) [Entitic vol] 53.1 fL High 35.1-43.9 [facility] Estimated glomerular filtrat ion rate (GFR) AmericanOrdered By: Aleahjosh Mario on 08-15-2024 Estimated GFR (MDRD) Amer 87 mL/min >60 [facility] Comment on above: GFR Calc Glomerular filtration rate ( GFR) estimationOrdered By: Addi Mario on 08-15-2024 Estimated GFR (MDRD) Non-Af Amer 72 mL/min >60 [facility] Comment on above: Non- GFR Calc Glucose measurementOrdered B y: Addi Joocarissamaria del carmen on 08-15-2024 Glucose [Mass/Vol] 108 mg/dL High 74-106 [facility] Comment on above: Fasting Glucose resu lt from 100 to 125 mg/dL suggests IMPAIRED HOMEOSTASIS per A.D.A. criteria. Hematocrit Auto (Bld) [Volum e fraction]Ordered By: Addi Mario on 08-15-2024 Hematocrit (Bld) [Volume fraction] 38.7 % Low 40-54 [facility] Hemoglobin measurementOrdere d By: Audreylilli Gecarissamaria del carmen on 08-15-2024 Hemoglobin (Bld) [Mass/Vol] 12.5 g/dL Low 13.0-16.5 [facility] Immature granulocytes/100 WB C Auto (Bld)Ordered By: Aleahjosh Mario on 08-15-2024 Immature granulocytes/100 WBC (Bld) 0.300 % 0.0-0.9 [facility] Comment on above: IG% - Immature Granu locytes (promyelocytes, myelocytes and metamyelocytes) > 1% indicates that a LEFT SHIFT is Present. Internal Medicine Office Vis iton 08-15-2024 Internal Medicine Office Visit [facility] [address] [place] [address] [place] [address] OFFICE VISIT Date of Service: 08/15/24 MR#: [id number] Acct: [id number] Name: JESSEE RUST Rep #: [id number] : 1935 Provider: Dr. 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 Normal [facility] Laboratory - Chemistry and C hemistry - challengeOrdered By: Addi Mario on 08-15-2024 AST [Catalytic activity/Vol] 27 U/L 15-37 [facility] Lymphocytes Auto (Unsp spec) [#/Vol]Ordered By: Addi Mario on 08-15-2024 Lymphocytes (Bld) [#/Vol] 1.84 10*3/uL 0.83-4.5 1 [facility] Lymphocytes/100 WBC Auto (Un sp spec)Ordered By: Addi Mario on 08-15-2024 Lymphocytes/100 WBC (Bld) 31.2 % 19-41 [facility] MCV (mean corpuscular volume ) determinationOrdered By: Addi Mario on 08-15-2024 MCV (RBC) [Entitic vol] 98.2 fL High 80-94 [facility] Mean corpuscular hemoglobin (MCH) determinationOrdered By: Efzackeryongbe Huie on 08-15-2024 MCH (RBC) [Entitic mass] 31.7 pg 27.0-32.0 [facility] Mean corpuscular hemoglobin concentration (MCHC) determinationOrdered By: Addi Mario on 08-15-2024 MCHC (RBC) [Mass/Vol] 32.3 g/dL 32-36 [facility] Mean platelet volume determi nationOrdered By: Addi Mario on 08-15-2024 Platelet mean volume (Bld) [Entitic vol] 11.3 fL 6.2-12.0 [facility] Monocyte percentageOrdered B y: Addi Mario on 08-15-2024 Monocytes/100 WBC (Bld) 10.5 % High 0-10 [facility] Neutrophil percentageOrdered By: Efjosh Mario on 08-15-2024 Neutrophils/100 WBC (Bld) 54.1 % 47-70 [facility] Nucleated red blood cell per centageOrdered By: Addi Mario on 08-15-2024 Nucleated RBC/100 WBC (Bld) [Ratio] 0 % 0-5 [facility] Platelet countOrdered By: Aleah Mario on 08-15-2024 Platelets (Bld) [#/Vol] 129 10*3/uL Low 150-450 [facility] Potassium measurementOrdered By: Addi Mario on 08-15-2024 Potassium [Moles/Vol] 3.9 mmol/L 3.5-5.1 [facility] RBC Auto (Bld) [#/Vol]Ordere d By: Addi Mario on 08-15-2024 RBC (Bld) [#/Vol] 3.94 10*6/uL Low 4.6-6.2 [facility] Serum anion gap measurementO rdered By: Addi Mario on 08-15-2024 Anion gap [Moles/Vol] 5 mmol/L 5-15 [facility] Serum globulin measurementOr dered By: Addi Mario on 08-15-2024 Globulin (S) [Mass/Vol] 4.7 g/dL High 2.2-4.2 [facility] Serum or plasma alanine castellano otransferase (ALT) measurementOrdered By: Addi Mario on 08-15-2024 ALT [Catalytic activity/Vol] 21 U/L 16-61 [facility] Serum or plasma albumin tay urement (mass/volume)Ordered By: Addi Mario on 08-15-2024 Albumin [Mass/Vol] 3.3 g/dL 3.2-5.0 [facility] Serum or plasma alkaline lyndsey sphatase measurementOrdered By: Addi Mario on 08-15-2024 ALP [Catalytic activity/Vol] 91 U/L 45-117 [facility] Serum or plasma calcium tay urement (mass/volume)Ordered By: Addi Mario on 08-15-2024 Calcium [Mass/Vol] 9.6 mg/dL 8.5-10.1 [facility] Serum or plasma creatinine m easurement (mass/volume)Ordered By: Addi Mario on 08-15-2024 Creatinine [Mass/Vol] 1.04 mg/dL 0.70-1.30 [facility] Comment on above: The validity of the calculated GFR & GFRAA in patients over 70 years has not been determined. Clinical correlation is essential. Serum or plasma urea nitroge n measurement (mass/volume)Ordered By: Addi Mario on 08-15-2024 Urea nitrogen [Mass/Vol] 16 mg/dL 7-18 [facility] Sodium levelOrdered By: Arleth Mario on 08-15-2024 Sodium [Moles/Vol] 140 mmol/L 136-145 [facility] Total proteinOrdered By: Sonny Mario on 08-15-2024 Protein [Mass/Vol] 8.0 g/dL 6.4-8.2 [facility] Vitamin B12on 08-15-2024 Cobalamin (Vitamin B12) [Mass/Vol] 992 pg/mL High 211916 [facility] Comment on above: Performed By: #### L 503.0105, L100.0100, L500.4050 ####[facility] [address] [place], [address] Vitamin B12 measurementOrder ed By: Addi Mario on 08-15-2024 Cobalamin (Vitamin B12) [Mass/Vol] 992 pg/mL High 211-911 [facility] White blood cell (WBC) count Ordered By: Addi Mario on 08-15-2024 WBC (Bld) [#/Vol] 5.9 10*3/uL 4.4-11.0 [facility] Urgent Care Visit Reporton 1 10-09-2023 Urgent Care Visit Report [facility] 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 [facility] Medical History Perianal dermatitis CHF (congestive heart failure) Ureteral calculi Cardiomyopathy Mitral regurgitation Rheumatoid arthritis Non-smoker Hypertension Atrial fibrillation Migraines Sepsis Non-STEMI (non-ST elevated myocardial infarction) Paroxysmal atrial fibrillation Extensor tenosynovitis of right wrist Advanced directives, counseling/discussi on Anemia Left facial swelling Aortic stenosis New onset atrial fibrillation Vitamin D deficiency Obesity Restrictive airway disease Asthma Dermatitis Memory impairment Right foot shahram (more content not included)... Normal [facility] VISUAL FIELD 24-2 OU (BOTH E YES)on 07-30-2024 [facility] Radiology Study observation (narrative) [facility] Pulmonary Visit Reporton Pulmonary Visit Report [facility] [place] [address] [place] [address] OFFICE VISIT Date of Service: 06/14/24 MR#: [id number] Acct: [id number] Name: JESSEE RUST Rep #: [id number] : 1935 Provider: HUAN Sharma Age/Sex: 89/M Location: [facility] Status: Signed Assessment and Plan Assessment and [...] heart health #90 09/15/23 06/14/24 Rx tabs ovigzrip-tef-dvfuz acid 0.4 1 tab PO DAILY supplement 12/02/23 06/14/24 History mg-lycopene 300 mcg-lutein 250 mcg tablet (Centrum Silver) netarsudil 0.02 %-la (more content not included)... Normal [facility] CBC W/Diff, Automatedon 08 Absolute Lymph 2.52 X10 3/uL Normal 0.83-4.51 [facility] Comment on above: Performed By: #### L 100.0100 ####[facility] [address] [place], [address] Absolute Neut 3.6 X10 3/uL Normal 2.0-7.7 [facility] Comment on above: Performed By: #### L 100.0100 ####[facility] [address] [place], [address] Basophils/100 WBC (Bld) 0.4 % Normal 0-1 [facility] Comment on above: Performed By: #### L 100.0100 ####[facility] [address] [place], [address] Eosinophils/100 WBC (Bld) 3.8 % Normal 0-5 [facility] Comment on above: Performed By: #### L 100.0100 ####[facility] [address] [place], [address] Erythrocyte distribution width (RBC) [Ratio] 14.1 % Normal 11.6-14.6 [facility] Comment on above: Performed By: #### L 100.0100 ####[facility] [address] [place], [address] Hematocrit (Bld) [Volume fraction] 36.4 % Low 40-54 [facility] Comment on above: Performed By: #### L 100.0100 ####[facility] [address] [place], [address] Hemoglobin (Bld) [Mass/Vol] 11.4 g/dL Low 13.0-16.5 [facility] Comment on above: Performed By: #### L 100.0100 ####[facility] [address] [place], [address] IG% 0.300 Normal 0.0-0.9 [facility] Comment on above: Result Comment: IG% - Immature Granulocytes (promyelocytes, myelocytes and metamyelocytes) > 1% indicates that a LEFT SHIFT is Present. Performed By: #### L 100.0100 ####[facility] [address] [place], [address] Lymphocytes/100 WBC (Bld) 34.2 % Normal 19-41 [facility] Comment on above: Performed By: #### L 100.0100 ####[facility] [address] [place], [address] MCH (RBC) [Entitic mass] 30.7 pg Normal 27.0-32.0 [facility] Comment on above: Performed By: #### L 100.0100 ####[facility] [address] [place], [address] MCHC (RBC) [Mass/Vol] 31.3 g/dL Low 32-36 [facility] Comment on above: Performed By: #### L 100.0100 ####[facility] [address] [place], [address] MCV (RBC) [Entitic vol] 98.1 fL High 80-94 [facility] Comment on above: Performed By: #### L 100.0100 ####[facility] [address] [place], [address] Monocytes/100 WBC (Bld) 12.2 % High 0-10 [facility] Comment on above: Performed By: #### L 100.0100 ####[facility] [address] [place], [address] Neutrophils/100 WBC (Bld) 49.1 % Normal 47-70 [facility] Comment on above: Performed By: #### L 100.0100 ####[facility] [address] [place], [address] Nucleated RBC (Bld) [#/Vol] 0 10*3/uL Normal 0-5 [facility] Comment on above: Performed By: #### L 100.0100 ####[facility] [address] [place], [address] Platelet mean volume (Bld) [Entitic vol] 11.6 fL Normal 6.2-12.0 [facility] Comment on above: Performed By: #### L 100.0100 ####[facility] [address] [place], [address] Platelets (Bld) [#/Vol] 145 10*3/uL Low 150-450 [facility] Comment on above: Performed By: #### L 100.0100 ####[facility] [address] [place], [address] RBC (Bld) [#/Vol] 3.71 10*6/uL Low 4.6-6.2 [facility] Comment on above: Performed By: #### L 100.0100 ####[facility] [address] [place], [address] RDW SD 50.7 fl High 35.1-43.9 [facility] Comment on above: Performed By: #### L 100.0100 ####[facility] [address] [place], [address] WBC (Bld) [#/Vol] 7.4 10*3/uL Normal 4.4-11.0 [facility] Comment on above: Performed By: #### L 100.0100 ####[facility] [address] [place], [address] Internal Medicine Office Vis ito 05-16-2024 Internal Medicine Office Visit [facility] [address] [place], [place] [address] OFFICE VISIT Date of Service: 05/16/24 MR#: [id number] Acct: [id number] Name: JESSEE RUST Rep #: [id number] : 1935 Provider: Dr. 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 Normal [facility] 05-15-2024 [facility] Telephone (OPHTMN) ---- JESSEE RUST ([id number]) 1935 M Date Time Provider Department 05/15/24 [facility] During your visit today, we recorded the following information about you: Mikaela Tillman 05/15/2024 10:15 AM Signed He's calling as [...] 03/12/2024 2:50 PM Status: Signed New from [place] Tmax: <22; Pachy: -, - Lasers and [...] 70's Date Reviewed: 03/12/2024 Reviewed by: Jacquie Keller OA - Fully Assessed Reason for Visit: [...] ON ELBOWS (more content not included)... Normal [facility] 6 Minute Walk Teston 08-12-2 024 6 Minute Walk Test y [facility] [address] [place] [address] MR#: [id number] Acct: [id number] Name: JESSEE RUST Rep #: [id number] : 1935 89 From: Quentin Beltran DO Referring Dr: Ailin Sharma NP PREVENTIVE MEDICINE PHYSICIAN-C Status: REG CLI Location: PSN Date: Sex: M C PSN 6 Minute Walk Test 6 Minute Walk Test 6 Minute Walk Test: 6 Minute Walk Test PSN:6-Minute Walk Test Start: 04/26/24 14:05 Freq: Status: Active Protocol: RESP.6MINW Document 04/26/24 13:45 EW (Rec: 04/26/24 14:19 EW [id number]) 6 Minute Walk Test Date Performed 04/26/24 [...] 98% on room air. With ambulation, the moiess oxygen saturation was 90%. 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 Recommendations Recommendations: There is no indication for the use of supplemental oxygen at this time. However, close interval follow-up is recommended, given the degree of oxygen desaturation noted during the study. 04/30/24653 Date Quentin Beltran DO CC: Date Dictated: 04/30/24653 Date Transcribed: 04/30/24653 Head Sampler: Dr. Quentin Beltran, Signed Normal [facility] Stool Occult Blood iFOBon STOB Positive Normal [facility] Comment on above: Performed By: #### M 100.7900, L400.0001 ####[facility] [address] [place], [address] Urinalysis, Completeon 04-21 BACTERIA 1+ /hpf Normal None Seen [facility] Comment on above: Order Comment: EBONY CTOR TO SPECIFY Performed By: #### M 100.7900, L400.0001 ####[facility] [address] [place], [address] WBC 10-25 SEEN Normal 0-5 [facility] Comment on above: Order Comment: EBONY CTOR TO SPECIFY Performed By: #### M 100.7900, L400.0001 ####[facility] [address] [place], [address] EPI,SQUAMOUS 0 SEEN Normal 0-5 [facility] Comment on above: Order Comment: EBONY CTOR TO SPECIFY Performed By: #### M 100.7900, L400.0001 ####[facility] [address] [place], [address] Mucus Ql (Urine sed) 0 SEEN Normal [facility] Comment on above: Order Comment: COLLE CTOR TO SPECIFY Performed By: #### M 100.7900, L400.0001 ####[facility] [address] [place], [address] RBC 0 SEEN Normal 0-5 [facility] Comment on above: Order Comment: COLLE CTOR TO SPECIFY Performed By: #### M 100.7900, L400.0001 ####[facility] [address] [place], [address] 12 Lead EKG performed by [facility] on 04-19-2024 12 Lead EKG performed by [facility] [address] 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 ABNORMAL Electronically signed on 04/23/2024 at 10:[address] Dash Kelley Software Version [id number] 04/23/24 1052 Date Ava LUEVANO CC: Dr. Addi Mario MD Date Dictated: 04/19/241330 Date Transcribed: 08/01/24 1331 Head Sampler: BRYANNA Signed Normal [facility] Cardiology Visit Reporton Cardiology Visit Report [facility] [address] [place], [place] [address] OFFICE VISIT Date of Service: 04/19/24 MR#: [id number] Acct: [id number] Name: JESSEE RUST Rep #: [id number] 2 : 1935 Provider: BASSEM Murcia Age/Sex: 89/M Location: [facility] Status: Signed HPI HPI History of Present [...] evidence of ischemia. He was evaluated at [facility] in November 2023 for non-ST myocardial infarction. [...] 09/15/23 04/19/24 Rx tablet pain #25 tabs [id number] acid 0.4 1 tab PO DAILY supplement [...] hydrocortisone 2.5 % topical cream 1 applic CO BID-QID PRN 01/04/24 04/19/24 Rx with perineal applicator hemorrhoids #30 grams cetirizine 10 mg tablet 10 mg PO DAILY PRN 01/23/24 04/19/24 History sennosides 8.6 mg-docusate sodium 1 tab-cap PO QHS (more content not included)... Normal [facility] Basic Metabolic Profile (BMP )on 04-17-2024 BUN/CRE 16.4 RATIO Normal 10-20 [facility] Comment on above: Performed By: #### L 100.0500, L500.2500 ####[facility] [address] [place], [place], [id number] CA,Total 9.3 mg/dL Normal 8.5-10.1 [facility] Comment on above: Performed By: #### L 100.0500, L500.2500 ####[facility] [address] [place], [address] Chloride [Moles/Vol] 101 mmol/L Normal 98-107 [facility] Comment on above: Performed By: #### L 100.0500, L500.2500 ####[facility] [address] [place], [address] CO2 [Moles/Vol] 34.0 mmol/L High 21.0-32.0 [facility] Comment on above: Performed By: #### L 100.0500, L500.2500 ####[facility] [address] [place], [address] Creatinine [Mass/Vol] 0.98 mg/dL Normal 0.70-1.30 [facility] Comment on above: Result Comment: The validity of the calculated GFR GFRAA in patients over 70 years has not been determined. Clinical correlation is essential. Performed By: #### L 100.0500, L500.2500 ####[facility] [address] [place], [address] EST GFR - AA 94 mL/min Normal >60 [facility] Comment on above: Result Comment: Afri can [facility] GFR Calc Performed By: #### L 100.0500, L500.2500 ####[facility] [address] [place], [address] GAP 3 Low 5-15 [facility] Comment on above: Performed By: #### L 100.0500, L500.2500 ####[facility] [address] [place], [address] GFR/1.73 sq M.predicted among non-blacks MDRD (S/P/Bld) [Vol rate/Area] 77 mL/min/{1.73_m2} Normal >60 [facility] Comment on above: Result Comment: Non- GFR Calc Performed By: #### L 100.0500, L500.2500 ####[facility] [address] [place], [address] Glucose [Mass/Vol] 92 mg/dL Normal 74-106 [facility] Comment on above: Performed By: #### L 100.0500, L500.2500 ####[facility] [address] [place], [address] Potassium [Moles/Vol] 3.8 mmol/L Normal 3.5-5.1 [facility] Comment on above: Performed By: #### L 100.0500, L500.2500 ####[facility] [address] [place], [address] Sodium [Moles/Vol] 138 mmol/L Normal 136-145 [facility] Comment on above: Performed By: #### L 100.0500, L500.2500 ####[facility] [address] [place], [address] Urea nitrogen [Mass/Vol] 16 mg/dL Normal 7-18 [facility] Comment on above: Performed By: #### L 100.0500, L500.2500 ####[facility] [address] [place], [address] CBC-Complete Blood Cnt No Di ffon 04-17-2024 Erythrocyte distribution width (RBC) [Ratio] 14.4 % Normal 11.6-14.6 [facility] Comment on above: Performed By: #### L 100.0500, L500.2500 ####[facility] [address] [place], [address] Hematocrit (Bld) [Volume fraction] 35.9 % Low 40-54 [facility] Comment on above: Performed By: #### L 100.0500, L500.2500 ####[facility] [address] [place], [address] Hemoglobin (Bld) [Mass/Vol] 11.4 g/dL Low 13.0-16.5 [facility] Comment on above: Performed By: #### L 100.0500, L500.2500 ####[facility] [address] [place], [address] MCH (RBC) [Entitic mass] 31.0 pg Normal 27.0-32.0 [facility] Comment on above: Performed By: #### L 100.0500, L500.2500 ####[facility] [address] [place], [address] MCHC (RBC) [Mass/Vol] 31.8 g/dL Low 32-36 [facility] Comment on above: Performed By: #### L 100.0500, L500.2500 ####[facility] [address] [place], [address] MCV (RBC) [Entitic vol] 97.6 fL High 80-94 [facility] Comment on above: Performed By: #### L 100.0500, L500.2500 ####[facility] [address] [place], [address] Platelet mean volume (Bld) [Entitic vol] 11.7 fL Normal 6.2-12.0 [facility] Comment on above: Performed By: #### L 100.0500, L500.2500 ####[facility] [address] [place], [address] Platelets (Bld) [#/Vol] 138 10*3/uL Low 150-450 [facility] Comment on above: Performed By: #### L 100.0500, L500.2500 ####[facility] [address] [place], [address] RBC (Bld) [#/Vol] 3.68 10*6/uL Low 4.6-6.2 [facility] Comment on above: Performed By: #### L 100.0500, L500.2500 ####[facility] [address] [place], [address] RDW SD 51.3 fl High 35.1-43.9 [facility] Comment on above: Performed By: #### L 100.0500, L500.2500 ####[facility] [address] [place], [address] WBC (Bld) [#/Vol] 7.0 10*3/uL Normal 4.4-11.0 [facility] Comment on above: Performed By: #### L 100.0500, L500.2500 ####[facility] [address] [place], [address] CNPNon 03-14-2024 CNPN Telephone (OPHTMN) ---- JESSEE RUST ([id number]) 1935 M Date Time Provider Department 03/14/24 LUCINA FRIEDMAN OPHDominga During your visit today, we recorded the following information about you: Lucina Friedman, LUMBER YARD WORKER 03/14/2024 1:45 PM Signed bench worker hollow handle received a consult order from Dr. Shea who is referring the patient to the [facility] for low vision services. bench worker hollow handle called the patient and discussed the referral and sight center services. Patient states that the sight center is too far from [place], [place] and has requested to send him vision resources. bench worker hollow handle and patient discussed use of I-Phone and I-Pad vision accessibility for improved reading and using [employer] for additional assistance with reading information. Patient is very comfortable using assistive technology and prefers to the methods he is currently using for visual adaptations. Discussed at length [employer] videos for tech learning and other information [...] it and get back to this SW. bench worker hollow handle to email vision resources. Patient will reach out to as needed. Contact information provided. 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 Normal [facility] CONSULT TO KEVIN Arias 03-14-2024 Patient declined sight center. Requested vision resources. Thank you. [facility] OCT OPTIC NERVE CIRRUS OU (B OTH EYES)on 03-12-2024 [facility] Radiology Study observation (narrative) [facility] Absolute lymphocyte countOrd ered By: Arsenio Mcgregor on 12-30-2023 Lymphocytes Auto (Unsp spec) [#/Vol] 2.79 10*3/uL 0.83-4.51 [facility] Automated lymphocyte count a s percentage of total leukocytesOrdered By: Arsenio Mcgregor on 12-30-2023 Lymphocytes/100 WBC Auto (Unsp spec) 35.0 % 19-41 [facility] Basophil percentageOrdered B y: Arsenio Mcgregor on 12-30-2023 Basophils/100 WBC (Bld) 0.9 % 0-1 [facility] Chloride [Moles/Vol] 105 mmol/L 98-107 [facility] Eosinophils/100 WBC (Bld) 5.4 % 0-5 [facility] Glucose [Mass/Vol] 103 mg/dL 74-106 [facility] Comment on above: Fasting Glucose resu lt from 100 to 125 mg/dL suggests IMPAIRED HOMEOSTASIS per A.D.A. criteria. Hemoglobin (Bld) [Mass/Vol] 9.8 g/dL 13.0-16.5 [facility] Monocytes/100 WBC (Bld) 13.6 % 0-10 [facility] Neutrophils (Bld) [#/Vol] 3.6 10*3/uL 2.0-7.7 [facility] Neutrophils/100 WBC (Bld) 44.5 % 47-70 [facility] Potassium [Moles/Vol] 4.2 mmol/L 3.5-5.1 [facility] Sodium [Moles/Vol] 138 mmol/L 136-145 [facility] WBC (Bld) [#/Vol] 8.0 10*3/uL 4.4-11.0 [facility] Determination of erythrocyte mean corpuscular volume (MCV)Ordered By: Arsenio Mcgregor on 12-30-2023 MCV (RBC) [Entitic vol] 96.4 fL 80-94 [facility] Erythrocyte distribution wid th ratioOrdered By: Arsenio Mcgregor on 12-30-2023 Erythrocyte distribution width (RBC) [Ratio] 15.6 % 11.6-14.6 [facility] Erythrocyte distribution wid th standard deviationOrdered By: Arsenio Mcgregor on 12-30-2023 Erythrocyte distribution width (RBC) [Entitic vol] 55.5 fL 35.1-43.9 [facility] Hematocrit Auto (Bld) [Volum e fraction]Ordered By: Arsenio Mcgregor on 12-30-2023 Hematocrit (Bld) [Volume fraction] 31.8 % 40-54 [facility] Immature granulocytes/100 WB C Auto (Bld)Ordered By: Arsenio Mcgregor on 12-30-2023 Immature granulocytes/100 WBC (Bld) 0.600 % 0.0-0.9 [facility] Comment on above: IG% - Immature Granu locytes (promyelocytes, myelocytes and metamyelocytes) > 1% indicates that a LEFT SHIFT is Present. Laboratory - Chemistry and C hemistry - challengeOrdered By: Arsenio Mcgregor on 12-30-2023 CO2 [Moles/Vol] 33.0 mmol/L 21.0-32.0 [facility] Urea nitrogen/Creatinine [Mass ratio] 19.0 mg/mg 10-20 [facility] Laboratory - Hematology and Cell countsOrdered By: Arsenio Mcgregor 12-30-2023 MCH (RBC) [Entitic mass] 29.7 pg 27.0-32.0 [facility] MCHC (RBC) [Mass/Vol] 30.8 g/dL 32-36 [facility] Nucleated RBC/100 WBC (Bld) [Ratio] 0 % 0-5 [facility] Platelet mean volume (Bld) [Entitic vol] 9.7 fL 6.2-12.0 [facility] Platelets (Bld) [#/Vol] 183 10*3/uL 150-450 [facility] No Panel InformationOrdered By: Arsenio Mcgregor on 12-30-2023 Estimated Creatinine Clearance Calc 51.48 ml/min [facility] Estimated GFR (MDRD) Amer 70 mL/min >60 [facility] Comment on above: GFR Calc Estimated GFR (MDRD) Non-Af Amer 58 mL/min >60 [facility] Comment on above: Non- GFR Calc RBC Auto (Bld) [#/Vol]Ordere d By: Arsenio Mcgregor on 12-30-2023 RBC (Bld) [#/Vol] 3.30 10*6/uL 4.6-6.2 [facility] Serum or plasma calcium tay urement (mass/volume)Ordered By: Arsenio Mcgregor on 12-30-2023 Calcium [Mass/Vol] 9.2 mg/dL 8.5-10.1 [facility] Serum or plasma creatinine m easurement (mass/volume)Ordered By: Arsenio Mcgregor on 12-30-2023 Creatinine [Mass/Vol] 1.26 mg/dL 0.70-1.30 [facility] Comment on above: The validity of the calculated GFR & GFRAA in patients over 70 years has not been determined. Clinical correlation is essential. Serum or plasma urea nitroge n measurement (mass/volume)Ordered By: Arsenio Mcgregor on 12-30-2023 Urea nitrogen [Mass/Vol] 24 mg/dL 7-18 [facility] Thin prep Papanicolaou smear with manual screeningOrdered By: Arsenio Mcgregor on 12-30-2023 Thin prep Papanicolaou smear with manual screening 0 5-15 [facility] Absolute lymphocyte countOrd ered By: Arsenio Mcgregor on 12-23-2023 Lymphocytes Auto (Unsp spec) [#/Vol] 1.50 10*3/uL 0.83-4.51 [facility] Automated lymphocyte count a s percentage of total leukocytesOrdered By: Arsenio Mcgregor on 12-23-2023 Lymphocytes/100 WBC Auto (Unsp spec) 18.8 % 19-41 [facility] Basophil percentageOrdered B y: Arsenio Mcgregor on 12-23-2023 Basophils/100 WBC (Bld) 0.5 % 0-1 [facility] Chloride [Moles/Vol] 103 mmol/L 98-107 [facility] Eosinophils/100 WBC (Bld) 2.0 % 0-5 [facility] Glucose [Mass/Vol] 102 mg/dL 74-106 [facility] Comment on above: Fasting Glucose resu lt from 100 to 125 mg/dL suggests IMPAIRED HOMEOSTASIS per A.D.A. criteria. Hemoglobin (Bld) [Mass/Vol] 10.0 g/dL 13.0-16.5 [facility] Monocytes/100 WBC (Bld) 16.8 % 0-10 [facility] Neutrophils (Bld) [#/Vol] 4.9 10*3/uL 2.0-7.7 [facility] Neutrophils/100 WBC (Bld) 61.5 % 47-70 [facility] Potassium [Moles/Vol] 4.0 mmol/L 3.5-5.1 [facility] Sodium [Moles/Vol] 136 mmol/L 136-145 [facility] WBC (Bld) [#/Vol] 8.0 10*3/uL 4.4-11.0 [facility] Determination of erythrocyte mean corpuscular volume (MCV)Ordered By: Arsenio Mcgregor on 12-23-2023 MCV (RBC) [Entitic vol] 95.3 fL 80-94 [facility] Erythrocyte distribution wid th ratioOrdered By: Arsenio Mcgregor on 12-23-2023 Erythrocyte distribution width (RBC) [Ratio] 15.6 % 11.6-14.6 [facility] Erythrocyte distribution wid th standard deviationOrdered By: Arsenio Mcgregor 12-23-2023 Erythrocyte distribution width (RBC) [Entitic vol] 54.6 fL 35.1-43.9 [facility] Hematocrit Auto (Bld) [Volum e fraction]Ordered By: Arsenio Mcgregor on 12-23-2023 Hematocrit (Bld) [Volume fraction] 32.1 % 40-54 [facility] Immature granulocytes/100 WB C Auto (Bld)Ordered By: Arsenio Mcgregor 12-23-2023 Immature granulocytes/100 WBC (Bld) 0.400 % 0.0-0.9 [facility] Comment on above: IG% - Immature Granu locytes (promyelocytes, myelocytes and metamyelocytes) > 1% indicates that a LEFT SHIFT is Present. Laboratory - Chemistry and C hemistry - challengeOrdered By: Arsenio Mcgregor 12-23-2023 CO2 [Moles/Vol] 30.0 mmol/L 21.0-32.0 [facility] Urea nitrogen/Creatinine [Mass ratio] 26.4 mg/mg 10-20 [facility] Laboratory - Hematology and Cell countsOrdered By: Arsenio Mcgregor 12-23-2023 MCH (RBC) [Entitic mass] 29.7 pg 27.0-32.0 [facility] MCHC (RBC) [Mass/Vol] 31.2 g/dL 32-36 [facility] Nucleated RBC/100 WBC (Bld) [Ratio] 0 % 0-5 [facility] Platelet mean volume (Bld) [Entitic vol] 9.8 fL 6.2-12.0 [facility] Platelets (Bld) [#/Vol] 188 10*3/uL 150-450 [facility] No Panel InformationOrdered By: Arsenio Mcgregor on 12-23-2023 Estimated Creatinine Clearance Calc 59.39 ml/min [facility] Estimated GFR (MDRD) Amer 82 mL/min >60 [facility] Comment on above: GFR Calc Estimated GFR (MDRD) Non-Af Amer 67 mL/min >60 [facility] Comment on above: Non- GFR Calc RBC Auto (Bld) [#/Vol]Ordere d By: Arsenio Mcgregor on 12-23-2023 RBC (Bld) [#/Vol] 3.37 10*6/uL 4.6-6.2 [facility] Serum or plasma calcium tay urement (mass/volume)Ordered By: Arsenio Mcgregor on 12-23-2023 Calcium [Mass/Vol] 9.0 mg/dL 8.5-10.1 [facility] Serum or plasma creatinine m easurement (mass/volume)Ordered By: Arsenio Mcgregor on 12-23-2023 Creatinine [Mass/Vol] 1.10 mg/dL 0.70-1.30 [facility] Comment on above: The validity of the calculated GFR & GFRAA in patients over 70 years has not been determined. Clinical correlation is essential. Serum or plasma urea nitroge n measurement (mass/volume)Ordered By: Arsenio Mcgregor on 12-23-2023 Urea nitrogen [Mass/Vol] 29 mg/dL 7-18 [facility] Thin prep Papanicolaou smear with manual screeningOrdered By: Arsenio Mcgregor on 12-23-2023 Thin prep Papanicolaou smear with manual screening 3 5-15 [facility] Basophil percentageOrdered B y: Arsenio Mcgregor on 12-10-2023 Basophil percentage 50-100 SEEN /hpf 0-5 [facility] Bilirubin Test strip Ql (U)O rdered By: Arsenio Mcgregor on 12-10-2023 Bilirubin Ql (U) Negative Negative [facility] Culture, urineOrdered By: Izaiah Mcgregor on 12-10-2023 Bacteria identified Cx Nom (U) Presumptive C albicans [facility] Bacteria identified Cx Nom (U) Negative [facility] Hyaline casts LM.LPF (Urine sed) [#/Area]Ordered By: Arsenio Mcgregor on 12-10-2023 Hyaline casts (Urine sed) [#/Area] 0 /[LPF] 0-5 [facility] Ketones Test strip Ql (U)Ord ered By: Arsenio Mcgregor on 12-10-2023 Ketones Ql (U) Negative Negative [facility] Mucus LM Ql (Urine sed)Order ed By: Arsenio Mcgregor on 12-10-2023 Mucus Ql (Urine sed) 1+ /hpf [facility] Nitrite Test strip Ql (U)Ord ered By: Arsenio Mcgregor on 12-10-2023 Nitrite Ql (U) Negative Negative [facility] No Panel InformationOrdered By: Arsenio Mcgregor on 12-10-2023 Urine RBC 25-50 SEEN /hpf 0-5 [facility] Protein Test strip Ql (U)Ord ered By: Arsenio Mcgregor on 12-10-2023 Protein Ql (U) 30 mg/dl Negative [facility] Squamous epithelial cells de tection in urine sediment by light microscopyOrdered By: Arsenio Mcgregor on 12-10-2023 Epithelial cells.squamous LM Ql (Urine sed) 0-5 SEEN /hpf 0-5 [facility] Urine blood detectionOrdered By: Arsenio Mcgregor on 12-10-2023 RBC Ql (U) 250 /ul Negative [facility] Urine clarityOrdered By: Arsenio Mcgregor on 12-10-2023 Clarity (U) Sl. Cloudy Clear [facility] Urine color determinationOrd ered By: Arsenio Mcgregor on 12-10-2023 Color (U) Yellow Yellow [facility] Urine glucose detectionOrder ed By: Arsenio Mcgregor on 12-10-2023 Glucose Ql (U) Normal mg/dl Normal [facility] Urine leukocyte esterase det ection by dipstickOrdered By: Arsenio Mcgregor on 12-10-2023 Leukocyte esterase Test strip Ql (U) 500 /ul Negative [facility] Urine pHOrdered By: Arsenio Mcgregor on 12-10-2023 pH (U) 6.0 [pH] 5.0 - 8.0 [facility] Urine sediment bacteria coun t by microscopy (number/high power field)Ordered By: Arsenio Mcgregor on 12-10-2023 Bacteria LM.HPF (Urine sed) [#/Area] 1 /[HPF] None Seen [facility] Urine specific gravity measu rementOrdered By: Arsenio Mcgregor on 12-10-2023 Specific gravity (U) [Rel density] 1.010 1.002-1.030 [facility] Urine urobilinogen measureme ntOrdered By: Arsenio Mcgregor on 12-10-2023 Urobilinogen Ql (U) Normal mg/dl Normal [facility] Blood manual differential co mment interpretation (narrative result)Ordered By: Arsenio Mcgregor on 12-09-2023 Manual differential comment Theodore (Bld) [Interp] SCANNED [facility] Comment on above: MONOCYTOSIS PRESENT Absolute lymphocyte countOrd ered By: Klaudia Gonzales on 12-08-2023 Lymphocytes Auto (Unsp spec) [#/Vol] 1.74 10*3/uL 0.83-4.51 [facility] Automated lymphocyte count a s percentage of total leukocytesOrdered By: Klaudia Gonzales on 12-08-2023 Lymphocytes/100 WBC Auto (Unsp spec) 19.1 % 19-41 [facility] Basophil percentageOrdered B y: Klaudia Gonzales on 12-08-2023 Basophils/100 WBC (Bld) 0.3 % 0-1 [facility] Chloride [Moles/Vol] 104 mmol/L 98-107 [facility] Eosinophils/100 WBC (Bld) 1.7 % 0-5 [facility] Glucose [Mass/Vol] 114 mg/dL 74-106 [facility] Comment on above: Fasting Glucose resu lt from 100 to 125 mg/dL suggests IMPAIRED HOMEOSTASIS per A.D.A. criteria. Hemoglobin (Bld) [Mass/Vol] 9.7 g/dL 13.0-16.5 [facility] Monocytes/100 WBC (Bld) 15.0 % 0-10 [facility] Neutrophils (Bld) [#/Vol] 5.7 10*3/uL 2.0-7.7 [facility] Neutrophils/100 WBC (Bld) 63.1 % 47-70 [facility] Potassium [Moles/Vol] 3.7 mmol/L 3.5-5.1 [facility] Sodium [Moles/Vol] 138 mmol/L 136-145 [facility] WBC (Bld) [#/Vol] 9.1 10*3/uL 4.4-11.0 [facility] Determination of erythrocyte mean corpuscular volume (MCV)Ordered By: Klaudia Gonzales on 12-08-2023 MCV (RBC) [Entitic vol] 93.4 fL 80-94 [facility] Erythrocyte distribution wid th ratioOrdered By: Klaudia Gonzales on 12-08-2023 Erythrocyte distribution width (RBC) [Ratio] 15.2 % 11.6-14.6 [facility] Erythrocyte distribution wid th standard deviationOrdered By: Klaudia Gonzales on 12-08-2023 Erythrocyte distribution width (RBC) [Entitic vol] 52.7 fL 35.1-43.9 [facility] Hematocrit Auto (Bld) [Volum e fraction]Ordered By: Klaudiasara Gonzales on 12-08-2023 Hematocrit (Bld) [Volume fraction] 29.8 % 40-54 [facility] Immature granulocytes/100 WB C Auto (Bld)Ordered By: Klaudiasara Gonzales on 12-08-2023 Immature granulocytes/100 WBC (Bld) 0.800 % 0.0-0.9 [facility] Comment on above: IG% - Immature Granu locytes (promyelocytes, myelocytes and metamyelocytes) > 1% indicates that a LEFT SHIFT is Present. Laboratory - Chemistry and C hemistry - challengeOrdered By: Klaudia Gonzales on 12-08-2023 CO2 [Moles/Vol] 28.0 mmol/L 21.0-32.0 [facility] Urea nitrogen/Creatinine [Mass ratio] 19.2 mg/mg 10-20 [facility] Laboratory - Hematology and Cell countsOrdered By: Klaudia Gonzales on 12-08-2023 MCH (RBC) [Entitic mass] 30.4 pg 27.0-32.0 [facility] MCHC (RBC) [Mass/Vol] 32.6 g/dL 32-36 [facility] Nucleated RBC/100 WBC (Bld) [Ratio] 0 % 0-5 [facility] Platelet mean volume (Bld) [Entitic vol] 10.4 fL 6.2-12.0 [facility] Platelets (Bld) [#/Vol] 134 10*3/uL 150-450 [facility] No Panel InformationOrdered By: Klaudia Gonzales on 12-08-2023 Atypical Lymphocytes RARE % [facility] Estimated Creatinine Clearance Calc 50.84 ml/min [facility] Estimated GFR (MDRD) Amer 67 mL/min >60 [facility] Comment on above: GFR Calc Estimated GFR (MDRD) Non-Af Amer 56 mL/min >60 [facility] Comment on above: Non- GFR Calc RBC Auto (Bld) [#/Vol]Ordere d By: Klaudia Gonzales on 12-08-2023 RBC (Bld) [#/Vol] 3.19 10*6/uL 4.6-6.2 [facility] Serum or plasma calcium tay urement (mass/volume)Ordered By: Klaudia Gonzales on 12-08-2023 Calcium [Mass/Vol] 8.7 mg/dL 8.5-10.1 [facility] Serum or plasma creatinine m easurement (mass/volume)Ordered By: Klaudia Gonzales on 12-08-2023 Creatinine [Mass/Vol] 1.30 mg/dL 0.70-1.30 [facility] Comment on above: The validity of the calculated GFR & GFRAA in patients over 70 years has not been determined. Clinical correlation is essential. Serum or plasma urea nitroge n measurement (mass/volume)Ordered By: Klaudia Gonzales on 12-08-2023 Urea nitrogen [Mass/Vol] 25 mg/dL 7-18 [facility] Thin prep Papanicolaou smear with manual screeningOrdered By: Klaudia Gonzales on 12-08-2023 Thin prep Papanicolaou smear with manual screening 6 5-15 [facility] Blood manual differential co mment interpretation (narrative result)Ordered By: Klaudia Gonzales on 12-07-2023 Manual differential comment Theodore (Bld) [Interp] SCANNED [facility] Laboratory - Chemistry and C hemistry - challengeOrdered By: Vanessa Simmons on 12-07-2023 Magnesium [Mass/Vol] 2.0 mg/dL 1.6-2.6 [facility] Activated partial thrombopla stin time (aPTT) in platelet poor plasma by coagulation aOrdered By: Miguelito Laguna on 12-03-2023 aPTT Coag (PPP) [Time] 71.0 s 24.1-36.2 [facility] Review by pathologistOrdered By: Miguelito Laguna on 12-03-2023 Pathologist review Theodore (Unsp spec) [Interp] Reviewed [facility] Comment on above: Previous reported re sult: Jeri rojas Edited by: NORA on 12/06/23:1403Neutrophilic leukocytosis with left shift.Normocytic anemia.Mild Thrombocytopenia.Clinical correlation necessary.Marcelo Perez M.D. 12/06/23 AMENDED REPORT 12/06/23 1403 PATH REV previously reported as: Jeri rojas Absolute lymphocyte countOrd ered By: Antonio James on 12-02-2023 Lymphocytes Auto (Unsp spec) [#/Vol] 1.02 10*3/uL 0.83-4.51 [facility] Activated partial thrombopla stin time (aPTT) in platelet poor plasma by coagulation aOrdered By: Antonio James on 12-02-2023 aPTT Coag (PPP) [Time] 34.4 s 24.1-36.2 [facility] Assessment of wrist artery p atency prior to arterial punctureOrdered By: Antonio James on 12-02-2023 Arterial patency Wrist artery --pre arterial puncture Positive [facility] Automated lymphocyte count a s percentage of total leukocytesOrdered By: Antonio James on 12-02-2023 Lymphocytes/100 WBC Auto (Unsp spec) 11.5 % -41 [facility] Base excessOrdered By: Antonio James on 12-02-2023 Base excess Calc (BldV) [Moles/Vol] 1 mmol/L -2-2 [facility] Basophil percentageOrdered B y: Antonio James on 12-02-2023 Lactate [Moles/Vol] 2.3 mmol/L 0.4-2.0 [facility] Comment on above: Critical Result(s) C alled at: 18:41:24 12/02/2023 by: Ev Matthews. Results read back by same. Basophil percentage 26 mmol/L [facility] Basophils/100 WBC (Bld) 93 % 95-99 [facility] Basophil percentage 10-25 SEEN /hpf 0-5 [facility] Chloride [Moles/Vol] 100 mmol/L 98-107 [facility] Glucose [Mass/Vol] 134 mg/dL 74-106 [facility] Comment on above: Fasting Glucose resu lt greater than or equal to 126 mg/dL suggests DIABETES MELLITUS per A.D.A. criteria. Lactate [Moles/Vol] 2.1 mmol/L 0.4-2.0 [facility] Comment on above: Critical Result(s) C alled at: 14:16:35 12/02/2023 by: Lili Ricardo. Results read back by same. Potassium [Moles/Vol] 3.8 mmol/L 3.5-5.1 [facility] Sodium [Moles/Vol] 134 mmol/L 136-145 [facility] Basophils/100 WBC (Bld) 0.2 % 0-1 [facility] Eosinophils/100 WBC (Bld) 0.5 % 0-5 [facility] Hemoglobin (Bld) [Mass/Vol] 12.3 g/dL 13.0-16.5 [facility] Monocytes/100 WBC (Bld) 4.1 % 0-10 [facility] Neutrophils (Bld) [#/Vol] 7.4 10*3/uL 2.0-7.7 [facility] Neutrophils/100 WBC (Bld) 83.1 % 47-70 [facility] WBC (Bld) [#/Vol] 8.9 10*3/uL 4.4-11.0 [facility] Bilirubin Test strip Ql (U)O rdered By: Antonio James on 12-02-2023 Bilirubin Ql (U) Negative Negative [facility] Culture, urineOrdered By: Jus James on 12-02-2023 Bacteria identified Cx Nom (U) Escherichia coli [facility] Determination of erythrocyte mean corpuscular volume (MCV)Ordered By: Antonio James on 12-02-2023 MCV (RBC) [Entitic vol] 95.2 fL 80-94 [facility] Erythrocyte distribution wid th ratioOrdered By: Antonio James on 12-02-2023 Erythrocyte distribution width (RBC) [Ratio] 15.0 % 11.6-14.6 [facility] Erythrocyte distribution wid th standard deviationOrdered By: Antonio James on 12-02-2023 Erythrocyte distribution width (RBC) [Entitic vol] 52.5 fL 35.1-43.9 [facility] Hematocrit Auto (Bld) [Volum e fraction]Ordered By: Antonio James on 12-02-2023 Hematocrit (Bld) [Volume fraction] 39.3 % 40-54 [facility] Immature granulocytes/100 WB C Auto (Bld)Ordered By: Antonio James on 12-02-2023 Immature granulocytes/100 WBC (Bld) 0.600 % 0.0-0.9 [facility] Comment on above: IG% - Immature Granu locytes (promyelocytes, myelocytes and metamyelocytes) > 1% indicates that a LEFT SHIFT is Present. Ketones Test strip Ql (U)Ord ered By: Antonio James on 12-02-2023 Ketones Ql (U) Negative Negative [facility] Laboratory - Chemistry and C hemistry - challengeOrdered By: Antonio James on 12-02-2023 CO2 [Moles/Vol] 29.0 mmol/L 21.0-32.0 [facility] Urea nitrogen/Creatinine [Mass ratio] 14.2 mg/mg 10-20 [facility] Laboratory - CoagulationOrde red By: Antonio James on 12-02-2023 INR Coag (Bld) [Relative time] 1.2 {INR} [facility] PT Coag (PPP) [Time] 15.1 s 11.7-14.9 [facility] Laboratory - Hematology and Cell countsOrdered By: Antonio James on 12-02-2023 MCH (RBC) [Entitic mass] 29.8 pg 27.0-32.0 [facility] MCHC (RBC) [Mass/Vol] 31.3 g/dL 32-36 [facility] Nucleated RBC/100 WBC (Bld) [Ratio] 0 % 0-5 [facility] Platelet mean volume (Bld) [Entitic vol] 11.4 fL 6.2-12.0 [facility] Platelets (Bld) [#/Vol] 125 10*3/uL 150-450 [facility] Laboratory - Microbiology an d Antimicrobial susceptibilityOrdered By: Antonio James on 12-02-2023 Bacteria identified Cx Nom (Bld) GNR lactose head sampler [facility] SARS-CoV-2 (COVID-19) RNA ANA+probe Ql (Unsp spec) [facility] Measurement, pHOrdered By: Maria Del Carmen James on 12-02-2023 pH (Unsp spec) 7.48 [pH] 7.35-7.45 [facility] Mucus LM Ql (Urine sed)Order ed By: Antonio James on 12-02-2023 Mucus Ql (Urine sed) 0 SEEN /hpf [facility] Nitrite Test strip Ql (U)Ord ered By: Antonio James on 12-02-2023 Nitrite Ql (U) Negative Negative [facility] No Panel InformationOrdered By: Antonio James on 12-02-2023 Troponin I High Sensitivity 829 pg/mL 3.0-78.0 [facility] Comment on above: Critical Result(s) C alled at: 17:02:54 12/02/2023 by: Ev Zaidi to [facility]. Results read back by same. Please Note: New Test Units and Gender Specific Reference Ranges. For more information see Policy Stat Procedure [place] High Sensitivity Troponin (TNIH) and attachments. Arterial Blood Partial Pressure CO2 33.1 mmHg 35-45 [facility] Arterial Blood Partial Pressure O2 62 mmHG 75-100 [facility] Blood Gas Bicarbonate Actual 24.6 mmol/L 22-26 [facility] Blood Gas Oxygen Percent 21.0 [facility] Blood Gas Sample Site R Radial [facility] Blood Gas Specimen Type ART [facility] Blood Gas Vent Mode Not entered [facility] Oxygen Delivery Device Room Air [facility] Urine RBC 0-5 SEEN /hpf 0-5 [facility] Estimated Creatinine Clearance Calc 63.01 ml/min [facility] Estimated GFR (MDRD) Amer 85 mL/min >60 [facility] Comment on above: GFR Calc Estimated GFR (MDRD) Non-Af Amer 70 mL/min >60 [facility] Comment on above: Non- GFR Calc Protein Test strip Ql (U)Ord ered By: Antonio James on 12-02-2023 Protein Ql (U) 15 mg/dl Negative [facility] RBC Auto (Bld) [#/Vol]Ordere d By: Antonio James on 12-02-2023 RBC (Bld) [#/Vol] 4.13 10*6/uL 4.6-6.2 [facility] Serum or plasma calcium tay urement (mass/volume)Ordered By: Antonio James on 12-02-2023 Calcium [Mass/Vol] 9.6 mg/dL 8.5-10.1 [facility] Serum or plasma cardiac trop onin I panel by high sensitivity methodOrdered By: Antonio James on 12-02-2023 Tropinin I.cardiac panel High sensitivity method 912 pg/mL 3.0-78.0 [facility] Comment on above: Critical Result(s) C alled at: 14:16:35 12/02/2023 by: Lili Ricardo. Results read back by same. Please Note: New Test Units and Gender Specific Reference Ranges. For more information see Policy Stat Procedure [place] High Sensitivity Troponin (TNIH) and attachments. Serum or plasma creatinine m easurement (mass/volume)Ordered By: Antonio James on 12-02-2023 Creatinine [Mass/Vol] 1.06 mg/dL 0.70-1.30 [facility] Comment on above: The validity of the calculated GFR & GFRAA in patients over 70 years has not been determined. Clinical correlation is essential. Serum or plasma urea nitroge n measurement (mass/volume)Ordered By: Antonio James on 12-02-2023 Urea nitrogen [Mass/Vol] 15 mg/dL 7-18 [facility] Squamous epithelial cells de tection in urine sediment by light microscopyOrdered By: Antonio James on 12-02-2023 Epithelial cells.squamous LM Ql (Urine sed) 0 SEEN /hpf 0-5 [facility] Thin prep Papanicolaou smear with manual screeningOrdered By: Antonio James on 12-02-2023 Thin prep Papanicolaou smear with manual screening 5 5-15 [facility] Urine blood detectionOrdered By: Antonio James on 12-02-2023 RBC Ql (U) 50 /ul Negative [facility] Urine clarityOrdered By: Anastacia James on 12-02-2023 Clarity (U) Sl. Cloudy Clear [facility] Urine color determinationOrd ered By: Antonio James on 12-02-2023 Color (U) Yellow Yellow [facility] Urine glucose detectionOrder ed By: Antonio James on 12-02-2023 Glucose Ql (U) Normal mg/dl Normal [facility] Urine leukocyte esterase det ection by dipstickOrdered By: Antonio James on 12-02-2023 Leukocyte esterase Test strip Ql (U) 100 /ul Negative [facility] Urine pHOrdered By: Antonio blackburn on 12-02-2023 pH (U) 7.0 [pH] 5.0 - 8.0 [facility] Urine sediment bacteria coun t by microscopy (number/high power field)Ordered By: Antonio James on 12-02-2023 Bacteria LM.HPF (Urine sed) [#/Area] 1 /[HPF] None Seen [facility] Urine specific gravity measu rementOrdered By: Antonio James on 12-02-2023 Specific gravity (U) [Rel density] 1.010 1.002-1.030 [facility] Urine urobilinogen measureme ntOrdered By: Antonio James on 12-02-2023 Urobilinogen Ql (U) Normal mg/dl Normal [facility] Absolute lymphocyte countOrd ered By: Addi Mario on 08-15-2023 Lymphocytes Auto (Unsp spec) [#/Vol] 1.89 10*3/uL 0.83-4.51 [facility] Basophil percentageOrdered B y: Addi Mario on 08-15-2023 Basophils/100 WBC (Bld) 0.4 % 0-1 [facility] Bilirubin [Mass/Vol] 0.40 mg/dL 0.20-1.00 [facility] Comment on above: For patients on eltr ombopag therapy, use of Dimension [place] TBIL is not recommended. Chloride [Moles/Vol] 104 mmol/L 98-107 [facility] Eosinophils/100 WBC (Bld) 1.5 % 0-5 [facility] Glucose [Mass/Vol] 107 mg/dL 74-106 [facility] Comment on above: Fasting Glucose resu lt from 100 to 125 mg/dL suggests IMPAIRED HOMEOSTASIS per A.D.A. criteria. Neutrophils (Bld) [#/Vol] 4.6 10*3/uL 2.0-7.7 [facility] Neutrophils/100 WBC (Bld) 62.0 % 47-70 [facility] Potassium [Moles/Vol] 4.4 mmol/L 3.5-5.1 [facility] Protein [Mass/Vol] 7.4 g/dL 6.4-8.2 [facility] Sodium [Moles/Vol] 141 mmol/L 136-145 [facility] WBC (Bld) [#/Vol] 7.4 10*3/uL 4.4-11.0 [facility] Blood erythrocytes count (nu mber/volume)Ordered By: Addi Mario on 08-15-2023 RBC (Bld) [#/Vol] 3.96 10*6/uL 4.6-6.2 [facility] Blood hemoglobin measurement (mass/volume)Ordered By: Addi Mario on 08-15-2023 Hemoglobin (Bld) [Mass/Vol] 12.1 g/dL 13.0-16.5 [facility] Blood lymphocytes/100 leukoc ytesOrdered By: Addi Mario on 08-15-2023 Lymphocytes/100 WBC (Bld) 25.5 % 19-41 [facility] Blood monocytes/100 leukocyt esOrdered By: Addi Mario on 08-15-2023 Monocytes/100 WBC (Bld) 10.3 % 0-10 [facility] Blood platelet mean volumeOr dered By: Addi Mario on 08-15-2023 Platelet mean volume (Bld) [Entitic vol] 11.0 fL 6.2-12.0 [facility] Determination of erythrocyte mean corpuscular volume (MCV)Ordered By: Addi Mario on 08-15-2023 MCV (RBC) [Entitic vol] 98.7 fL 80-94 [facility] Hematocrit Auto (Bld) [Volum e fraction]Ordered By: [facility] Joomaria del carmen on 08-15-2023 Hematocrit (Bld) [Volume fraction] 39.1 % 40-54 [facility] Laboratory - Chemistry and C hemistry - challengeOrdered By: [facility] Gemaria del carmen on 08-15-2023 ALP [Catalytic activity/Vol] 80 U/L 45-117 [facility] ALT [Catalytic activity/Vol] 24 U/L 16-61 [facility] CO2 [Moles/Vol] 33.0 mmol/L 21.0-32.0 [facility] Globulin (S) [Mass/Vol] 4.4 g/dL 2.2-4.2 [facility] Urea nitrogen/Creatinine [Mass ratio] 15.1 mg/mg 10-20 [facility] Laboratory - Hematology and Cell countsOrdered By: [facility] on 08-15-2023 Erythrocyte distribution width (RBC) [Entitic vol] 57.6 fL 35.1-43.9 [facility] Erythrocyte distribution width (RBC) [Ratio] 15.8 % 11.6-14.6 [facility] Immature granulocytes/100 WBC (Bld) 0.300 % 0.0-0.9 [facility] Comment on above: IG% - Immature Granu locytes (promyelocytes, myelocytes and metamyelocytes) > 1% indicates that a LEFT SHIFT is Present. MCH (RBC) [Entitic mass] 30.6 pg 27.0-32.0 [facility] Nucleated RBC/100 WBC (Bld) [Ratio] 0 % 0-5 [facility] MCHC Auto (RBC) [Mass/Vol]Or dered By: zackeryracelandillli Mario on 08-15-2023 MCHC (RBC) [Mass/Vol] 30.9 g/dL 32-36 [facility] No Panel InformationOrdered By: [facility] on 08-15-2023 Estimated GFR (MDRD) Amer 108 mL/min >60 [facility] Comment on above: GFR Calc Estimated GFR (MDRD) Non-Af Amer 90 mL/min >60 [facility] Comment on above: Non- GFR Calc Platelets bldOrdered By: Sonny Mario on 08-15-2023 Platelets (Bld) [#/Vol] 158 10*3/uL 150-450 [facility] Serum or plasma albumin tay urement (mass/volume)Ordered By: Addi Mario on 08-15-2023 Albumin [Mass/Vol] 3.0 g/dL 3.2-5.0 [facility] Serum or plasma albumin/glob ulin mass ratioOrdered By: Addi Mario on 08-15-2023 Albumin/Globulin [Mass ratio] 0.7 {ratio} 0.9-2.4 [facility] Serum or plasma calcium aty urement (mass/volume)Ordered By: Addi Mario on 08-15-2023 Calcium [Mass/Vol] 9.0 mg/dL 8.5-10.1 [facility] Serum or plasma creatinine m easurement (mass/volume)Ordered By: Addi Mario on 08-15-2023 Creatinine [Mass/Vol] 0.86 mg/dL 0.70-1.30 [facility] Comment on above: The validity of the calculated GFR & GFRAA in patients over 70 years has not been determined. Clinical correlation is essential. Serum or plasma urea nitroge n measurement (mass/volume)Ordered By: Addi Mario on 08-15-2023 Urea nitrogen [Mass/Vol] 13 mg/dL 7-18 [facility] Thin prep Papanicolaou smear with manual screeningOrdered By: Addi Mario on 08-15-2023 Thin prep Papanicolaou smear with manual screening 27 U/L 15-37 [facility] Thin prep Papanicolaou smear with manual screening 4 5-15 [facility] Influenza virus A and B and SARS-CoV-2 (COVID-19) Ag panel - Upper respiratory specimOrdered By: Marisol Crum on 04-22-2023 SARS-CoV-2 & FLU Antigen (Rapid) SARS-CoV-2 (COVID 19) [facility] Absolute lymphocyte countOrd ered By: Addi Mario on 03-23-2023 Lymphocytes Auto (Unsp spec) [#/Vol] 1.86 10*3/uL 0.83-4.51 [facility] Basophil percentageOrdered B y: Addi Mario on 03-23-2023 Basophils/100 WBC (Bld) 0.6 % 0-1 [facility] Bilirubin [Mass/Vol] 0.40 mg/dL 0.20-1.00 [facility] Comment on above: For patients on eltr ombopag therapy, use of Dimension [place] TBIL is not recommended. Eosinophils/100 WBC (Bld) 2.5 % 0-5 [facility] Neutrophils (Bld) [#/Vol] 3.6 10*3/uL 2.0-7.7 [facility] Neutrophils/100 WBC (Bld) 56.1 % 47-70 [facility] Protein [Mass/Vol] 7.5 g/dL 6.4-8.2 [facility] WBC (Bld) [#/Vol] 6.4 10*3/uL 4.4-11.0 [facility] Blood erythrocytes count (nu mber/volume)Ordered By: Addi Mario on 03-23-2023 RBC (Bld) [#/Vol] 3.82 10*6/uL 4.6-6.2 [facility] Blood hemoglobin measurement (mass/volume)Ordered By: Addi Mario on 03-23-2023 Hemoglobin (Bld) [Mass/Vol] 11.7 g/dL 13.0-16.5 [facility] Blood lymphocytes/100 leukoc ytesOrdered By: Addi Mario on 03-23-2023 Lymphocytes/100 WBC (Bld) 29.1 % 19-41 [facility] Blood monocytes/100 leukocyt esOrdered By: Addi Mario on 03-23-2023 Monocytes/100 WBC (Bld) 11.4 % 0-10 [facility] Blood platelet mean volumeOr dered By: Addi Mario on 03-23-2023 Platelet mean volume (Bld) [Entitic vol] 11.5 fL 6.2-12.0 [facility] Determination of erythrocyte mean corpuscular volume (MCV)Ordered By: Addi Mario on 03-23-2023 MCV (RBC) [Entitic vol] 98.7 fL 80-94 [facility] Direct bilirubinOrdered By: [facility] on 03-23-2023 Bilirubin.direct [Mass/Vol] 0.13 mg/dL 0.00-0.30 [facility] Hematocrit Auto (Bld) [Volum e fraction]Ordered By: zackeryracelandlilli Mario on 03-23-2023 Hematocrit (Bld) [Volume fraction] 37.7 % 40-54 [facility] INR in Blood by Coagulation assayOrdered By: Addi Mario on 03-23-2023 INR Coag (Bld) [Relative time] 1.1 {INR} [facility] Laboratory - Chemistry and C hemistry - challengeOrdered By: Addi Mairo on 03-23-2023 ALP [Catalytic activity/Vol] 85 U/L 45-117 [facility] ALT [Catalytic activity/Vol] 21 U/L 16-61 [facility] Cobalamin (Vitamin B12) [Mass/Vol] 623 pg/mL 211-911 [facility] Globulin (S) [Mass/Vol] 4.4 g/dL 2.2-4.2 [facility] Laboratory - CoagulationOrde red By: Addi Mario on 03-23-2023 aPTT Coag (Bld) [Time] 33.5 s 24.1-36.2 [facility] PT Coag (PPP) [Time] 14.5 s 11.7-14.9 [facility] Laboratory - Hematology and Cell countsOrdered By: Addi Mario on 03-23-2023 Erythrocyte distribution width (RBC) [Entitic vol] 54.5 fL 35.1-43.9 [facility] Erythrocyte distribution width (RBC) [Ratio] 15.0 % 11.6-14.6 [facility] Immature granulocytes/100 WBC (Bld) 0.300 % 0.0-0.9 [facility] Comment on above: IG% - Immature Granu locytes (promyelocytes, myelocytes and metamyelocytes) > 1% indicates that a LEFT SHIFT is Present. MCH (RBC) [Entitic mass] 30.6 pg 27.0-32.0 [facility] Nucleated RBC/100 WBC (Bld) [Ratio] 0 % 0-5 [facility] MCHC Auto (RBC) [Mass/Vol]Or dered By: Addi Mario on 03-23-2023 MCHC (RBC) [Mass/Vol] 31.0 g/dL 32-36 [facility] Platelets bldOrdered By: Sonny Mario on 03-23-2023 Platelets (Bld) [#/Vol] 148 10*3/uL 150-450 [facility] Serum or plasma albumin tay urement (mass/volume)Ordered By: Arlethracelandlilli Mario on 03-23-2023 Albumin [Mass/Vol] 3.1 g/dL 3.2-5.0 [facility] Thin prep Papanicolaou smear with manual screeningOrdered By: Addi Mario on 03-23-2023 Thin prep Papanicolaou smear with manual screening 31 U/L 15-37 [facility] Absolute lymphocyte countOrd ered By: Dr. Ferrera on 03-12-2023 Lymphocytes Auto (Unsp spec) [#/Vol] 2.23 10*3/uL 0.83-4.51 [facility] Basophil percentageOrdered B y: Dr. Ferrera on 03-12-2023 Basophils/100 WBC (Bld) 0.6 % 0-1 [facility] Chloride [Moles/Vol] 104 mmol/L 98-107 [facility] Eosinophils/100 WBC (Bld) 3.2 % 0-5 [facility] Glucose [Mass/Vol] 88 mg/dL 74-106 [facility] Neutrophils (Bld) [#/Vol] 3.6 10*3/uL 2.0-7.7 [facility] Neutrophils/100 WBC (Bld) 51.9 % 47-70 [facility] Potassium [Moles/Vol] 4.1 mmol/L 3.5-5.1 [facility] Sodium [Moles/Vol] 137 mmol/L 136-145 [facility] WBC (Bld) [#/Vol] 6.9 10*3/uL 4.4-11.0 [facility] Blood erythrocytes count (nu mber/volume)Ordered By: Dr. Ferrera on 03-12-2023 RBC (Bld) [#/Vol] 3.86 10*6/uL 4.6-6.2 [facility] Blood hemoglobin measurement (mass/volume)Ordered By: Dr. Ferrera on 03-12-2023 Hemoglobin (Bld) [Mass/Vol] 11.9 g/dL 13.0-16.5 [facility] Blood lymphocytes/100 leukoc ytesOrdered By: Dr. Ferrera on 03-12-2023 Lymphocytes/100 WBC (Bld) 32.4 % 19-41 [facility] Blood monocytes/100 leukocyt esOrdered By: Dr. Ferrera on 03-12-2023 Monocytes/100 WBC (Bld) 11.6 % 0-10 [facility] Blood platelet mean volumeOr dered By: Dr. Ferrera on 03-12-2023 Platelet mean volume (Bld) [Entitic vol] 11.0 fL 6.2-12.0 [facility] Determination of erythrocyte mean corpuscular volume (MCV)Ordered By: Dr. Ferrera on 03-12-2023 MCV (RBC) [Entitic vol] 97.4 fL 80-94 [facility] Hematocrit Auto (Bld) [Volum e fraction]Ordered By: Dr. Ferrera on 03-12-2023 Hematocrit (Bld) [Volume fraction] 37.6 % 40-54 [facility] Laboratory - Chemistry and C hemistry - challengeOrdered By: Dr. Ferrera on 03-12-2023 CO2 [Moles/Vol] 30.0 mmol/L 21.0-32.0 [facility] Urea nitrogen/Creatinine [Mass ratio] 21.5 mg/mg 10-20 [facility] Laboratory - Hematology and Cell countsOrdered By: Dr. Ferrera on 03-12-2023 Erythrocyte distribution width (RBC) [Entitic vol] 54.1 fL 35.1-43.9 [facility] Erythrocyte distribution width (RBC) [Ratio] 15.1 % 11.6-14.6 [facility] Immature granulocytes/100 WBC (Bld) 0.300 % 0.0-0.9 [facility] Comment on above: IG% - Immature Granu locytes (promyelocytes, myelocytes and metamyelocytes) > 1% indicates that a LEFT SHIFT is Present. MCH (RBC) [Entitic mass] 30.8 pg 27.0-32.0 [facility] Nucleated RBC/100 WBC (Bld) [Ratio] 0 % 0-5 [facility] MCHC Auto (RBC) [Mass/Vol]Or dered By: Dr. Ferrera on 03-12-2023 MCHC (RBC) [Mass/Vol] 31.6 g/dL 32-36 [facility] No Panel InformationOrdered By: Dr. Ferrera on 03-12-2023 Troponin I High Sensitivity 407 pg/mL 3.0-78.0 [facility] Comment on above: Critical Result(s) C alled at: 14:27:56 03/12/2023 by: Lili Tom to Asim. Results read back by same. Please Note: New Test Units and Gender Specific Reference Ranges. For more information see Policy Stat Procedure [place] High Sensitivity Troponin (TNIH) and attachments. Estimated Creatinine Clearance Calc 58.20 ml/min [facility] Estimated GFR (MDRD) Amer 138 mL/min >60 [facility] Comment on above: GFR Calc Estimated GFR (MDRD) Non-Af Amer 114 mL/min >60 [facility] Comment on above: Non- GFR Calc Platelets bldOrdered By: Dr. Ferrera on 03-12-2023 Platelets (Bld) [#/Vol] 141 10*3/uL 150-450 [facility] Serum or plasma calcium tay urement (mass/volume)Ordered By: Dr. Ferrera on 03-12-2023 Calcium [Mass/Vol] 9.6 mg/dL 8.5-10.1 [facility] Serum or plasma creatinine m easurement (mass/volume)Ordered By: Dr. Ferrera on 03-12-2023 Creatinine [Mass/Vol] 0.70 mg/dL 0.70-1.30 [facility] Comment on above: The validity of the calculated GFR & GFRAA in patients over 70 years has not been determined. Clinical correlation is essential. Serum or plasma urea nitroge n measurement (mass/volume)Ordered By: Dr. Ferrera on 03-12-2023 Urea nitrogen [Mass/Vol] 15 mg/dL 7-18 [facility] Thin prep Papanicolaou smear with manual screeningOrdered By: Dr. Ferrera on 03-12-2023 Thin prep Papanicolaou smear with manual screening 3 5-15 [facility] Stool gastrointestinal hemog lobin detection by immunologic methodOrdered By: Dr. Mario on 09-08-2022 Lower GI hemoglobin IA Ql (Stl) [facility] Absolute lymphocyte countOrd ered By: Dr. Mario on 09-04-2022 Lymphocytes Auto (Unsp spec) [#/Vol] 1.91 10*3/uL 0.83-4.51 [facility] Basophil percentageOrdered B y: Dr. Mario on 09-04-2022 Basophils/100 WBC (Bld) 0.5 % 0-1 [facility] Eosinophils/100 WBC (Bld) 3.3 % 0-5 [facility] Neutrophils (Bld) [#/Vol] 3.1 10*3/uL 2.0-7.7 [facility] Neutrophils/100 WBC (Bld) 52.2 % 47-70 [facility] WBC (Bld) [#/Vol] 6.0 10*3/uL 4.4-11.0 [facility] Blood erythrocytes count (nu mber/volume)Ordered By: Dr. Mario on 09-04-2022 RBC (Bld) [#/Vol] 4.08 10*6/uL 4.6-6.2 [facility] Blood hemoglobin measurement (mass/volume)Ordered By: Dr. Mario on 09-04-2022 Hemoglobin (Bld) [Mass/Vol] 12.5 g/dL 13.0-16.5 [facility] Blood lymphocytes/100 leukoc ytesOrdered By: Dr. Mario on 09-04-2022 Lymphocytes/100 WBC (Bld) 31.9 % 19-41 [facility] Blood monocytes/100 leukocyt esOrdered By: Dr. Mario on 09-04-2022 Monocytes/100 WBC (Bld) 11.9 % 0-10 [facility] Blood platelet mean volumeOr dered By: Dr. Mario on 09-04-2022 Platelet mean volume (Bld) [Entitic vol] 11.1 fL 6.2-12.0 [facility] Determination of erythrocyte mean corpuscular volume (MCV)Ordered By: Dr. Mario on 09-04-2022 MCV (RBC) [Entitic vol] 99.8 fL 80-94 [facility] Hematocrit Auto (Bld) [Volum e fraction]Ordered By: Dr. Mario on 09-04-2022 Hematocrit (Bld) [Volume fraction] 40.7 % 40-54 [facility] Laboratory - Hematology and Cell countsOrdered By: Dr. Mario on 09-04-2022 Erythrocyte distribution width (RBC) [Entitic vol] 52.1 fL 35.1-43.9 [facility] Erythrocyte distribution width (RBC) [Ratio] 14.2 % 11.6-14.6 [facility] Immature granulocytes/100 WBC (Bld) 0.200 % 0.0-0.9 [facility] Comment on above: IG% - Immature Granu locytes (promyelocytes, myelocytes and metamyelocytes) > 1% indicates that a LEFT SHIFT is Present. MCH (RBC) [Entitic mass] 30.6 pg 27.0-32.0 [facility] Nucleated RBC/100 WBC (Bld) [Ratio] 0 % 0-5 [facility] MCHC Auto (RBC) [Mass/Vol]Or dered By: Dr. Mario on 09-04-2022 MCHC (RBC) [Mass/Vol] 30.7 g/dL 32-36 [facility] Platelets bldOrdered By: Dr. Mario on 09-04-2022 Platelets (Bld) [#/Vol] 146 10*3/uL 150-450 [facility] Serum or plasma folate measu rement (mass/volume)Ordered By: Dr. Mario on 09-04-2022 Folate [Mass/Vol] 77.60 ng/mL 3.1-55.4 [facility] Absolute lymphocyte countOrd ered By: Dr. Peña on 08-24-2022 Lymphocytes Auto (Unsp spec) [#/Vol] 1.66 10*3/uL 0.83-4.51 [facility] Basophil percentageOrdered B y: Dr. Peña on 08-24-2022 Basophils/100 WBC (Bld) 0.3 % 0-1 [facility] Chloride [Moles/Vol] 107 mmol/L 98-107 [facility] Eosinophils/100 WBC (Bld) 3.8 % 0-5 [facility] Glucose [Mass/Vol] 103 mg/dL 74-106 [facility] Comment on above: Fasting Glucose resu lt from 100 to 125 mg/dL suggests IMPAIRED HOMEOSTASIS per A.D.A. criteria. Neutrophils (Bld) [#/Vol] 3.3 10*3/uL 2.0-7.7 [facility] Neutrophils/100 WBC (Bld) 54.8 % 47-70 [facility] Potassium [Moles/Vol] 4.0 mmol/L 3.5-5.1 [facility] Sodium [Moles/Vol] 140 mmol/L 136-145 [facility] WBC (Bld) [#/Vol] 6.0 10*3/uL 4.4-11.0 [facility] Blood erythrocytes count (nu mber/volume)Ordered By: Dr. Peña on 08-24-2022 RBC (Bld) [#/Vol] 4.00 10*6/uL 4.6-6.2 [facility] Blood hemoglobin measurement (mass/volume)Ordered By: Dr. Peña on 08-24-2022 Hemoglobin (Bld) [Mass/Vol] 12.5 g/dL 13.0-16.5 [facility] Blood lymphocytes/100 leukoc ytesOrdered By: Dr. Peña on 08-24-2022 Lymphocytes/100 WBC (Bld) 27.5 % 19-41 [facility] Blood monocytes/100 leukocyt esOrdered By: Dr. Peña on 08-24-2022 Monocytes/100 WBC (Bld) 13.4 % 0-10 [facility] Blood platelet mean volumeOr dered By: Dr. Peña on 08-24-2022 Platelet mean volume (Bld) [Entitic vol] 10.4 fL 6.2-12.0 [facility] Determination of erythrocyte mean corpuscular volume (MCV)Ordered By: Dr. Peña on 08-24-2022 MCV (RBC) [Entitic vol] 97.8 fL 80-94 [facility] Hematocrit Auto (Bld) [Volum e fraction]Ordered By: Dr. Peña on 08-24-2022 Hematocrit (Bld) [Volume fraction] 39.1 % 40-54 [facility] INR in Blood by Coagulation assayOrdered By: Dr. Peña on 08-24-2022 INR Coag (Bld) [Relative time] 1.1 {INR} [facility] Laboratory - Chemistry and C hemistry - challengeOrdered By: Dr. Peña on 08-24-2022 CO2 [Moles/Vol] 31.0 mmol/L 21.0-32.0 [facility] Urea nitrogen/Creatinine [Mass ratio] 21.3 mg/mg 10-20 [facility] Laboratory - CoagulationOrde red By: Dr. Peña on 08-24-2022 aPTT Coag (Bld) [Time] 31.1 s 24.1-36.2 [facility] PT Coag (PPP) [Time] 14.0 s 11.7-14.9 [facility] Laboratory - Hematology and Cell countsOrdered By: Dr. Peña on 08-24-2022 Erythrocyte distribution width (RBC) [Entitic vol] 51.5 fL 35.1-43.9 [facility] Erythrocyte distribution width (RBC) [Ratio] 14.2 % 11.6-14.6 [facility] Immature granulocytes/100 WBC (Bld) 0.200 % 0.0-0.9 [facility] Comment on above: IG% - Immature Granu locytes (promyelocytes, myelocytes and metamyelocytes) > 1% indicates that a LEFT SHIFT is Present. MCH (RBC) [Entitic mass] 31.3 pg 27.0-32.0 [facility] Nucleated RBC/100 WBC (Bld) [Ratio] 0 % 0-5 [facility] MCHC Auto (RBC) [Mass/Vol]Or dered By: Dr. Peña on 08-24-2022 MCHC (RBC) [Mass/Vol] 32.0 g/dL 32-36 [facility] No Panel InformationOrdered By: Dr. Peña on 08-24-2022 Estimated Creatinine Clearance Calc 59.28 ml/min [facility] Estimated GFR (MDRD) Amer 137 mL/min >60 [facility] Comment on above: GFR Calc Estimated GFR (MDRD) Non-Af Amer 113 mL/min >60 [facility] Comment on above: Non- GFR Calc Platelets bldOrdered By: Dr. Peña on 08-24-2022 Platelets (Bld) [#/Vol] 115 10*3/uL 150-450 [facility] Serum or plasma calcium tay urement (mass/volume)Ordered By: Dr. Peña on 08-24-2022 Calcium [Mass/Vol] 9.2 mg/dL 8.5-10.1 [facility] Serum or plasma creatinine m easurement (mass/volume)Ordered By: Dr. Peña on 08-24-2022 Creatinine [Mass/Vol] 0.70 mg/dL 0.70-1.30 [facility] Comment on above: The validity of the calculated GFR & GFRAA in patients over 70 years has not been determined. Clinical correlation is essential. Serum or plasma urea nitroge n measurement (mass/volume)Ordered By: Dr. Peña on 08-24-2022 Urea nitrogen [Mass/Vol] 15 mg/dL 7-18 [facility] Thin prep Papanicolaou smear with manual screeningOrdered By: Dr. Peña on 08-24-2022 Thin prep Papanicolaou smear with manual screening 2 5-15 [facility] Absolute lymphocyte countOrd ered By: Dr. Mario on 08-04-2022 Lymphocytes Auto (Unsp spec) [#/Vol] 2.10 10*3/uL 0.83-4.51 [facility] Basophil percentageOrdered B y: Dr. Mario on 08-04-2022 Basophils/100 WBC (Bld) 0.6 % 0-1 [facility] Bilirubin [Mass/Vol] 0.40 mg/dL 0.20-1.00 [facility] Comment on above: For patients on eltr ombopag therapy, use of Dimension [place] TBIL is not recommended. Chloride [Moles/Vol] 104 mmol/L 98-107 [facility] Cholesterol [Mass/Vol] 116 mg/dL <200 [facility] Comment on above: <200 mg/dL Desirable 200-240 mg/dL Borderline >240 mg/dL High Risk Eosinophils/100 WBC (Bld) 3.6 % 0-5 [facility] Glucose [Mass/Vol] 89 mg/dL 74-106 [facility] Neutrophils (Bld) [#/Vol] 3.8 10*3/uL 2.0-7.7 [facility] Neutrophils/100 WBC (Bld) 54.5 % 47-70 [facility] Potassium [Moles/Vol] 4.5 mmol/L 3.5-5.1 [facility] Comment on above: Moderate Hemolysis, Result may be falsely increased. Protein [Mass/Vol] 7.4 g/dL 6.4-8.2 [facility] Sodium [Moles/Vol] 139 mmol/L 136-145 [facility] Triglyceride [Mass/Vol] 106 mg/dL <199 [facility] Comment on above: The drugs N-Acetylcy steine and Metamizole may falsely depress this assay.Serum Triglycerides Reference Interval Normal <150 mg/dL Borderline high 150 - 199 mg/dL High 200 - 499 mg/dL Very High > or = 500 mg/dL WBC (Bld) [#/Vol] 6.9 10*3/uL 4.4-11.0 [facility] Blood erythrocytes count (nu mber/volume)Ordered By: Dr. Mario on 08-04-2022 RBC (Bld) [#/Vol] 4.09 10*6/uL 4.6-6.2 [facility] Blood hemoglobin measurement (mass/volume)Ordered By: Dr. Mario on 08-04-2022 Hemoglobin (Bld) [Mass/Vol] 12.8 g/dL 13.0-16.5 [facility] Blood lymphocytes/100 leukoc ytesOrdered By: Dr. Mario on 08-04-2022 Lymphocytes/100 WBC (Bld) 30.3 % 19-41 [facility] Blood monocytes/100 leukocyt esOrdered By: Dr. Mario on 08-04-2022 Monocytes/100 WBC (Bld) 10.7 % 0-10 [facility] Blood platelet mean volumeOr dered By: Dr. Mario on 08-04-2022 Platelet mean volume (Bld) [Entitic vol] 11.4 fL 6.2-12.0 [facility] Determination of erythrocyte mean corpuscular volume (MCV)Ordered By: Dr. Mario on 08-04-2022 MCV (RBC) [Entitic vol] 100.0 fL 80-94 [facility] Hematocrit Auto (Bld) [Volum e fraction]Ordered By: Dr. Mario on 08-04-2022 Hematocrit (Bld) [Volume fraction] 40.9 % 40-54 [facility] Laboratory - Chemistry and C hemistry - challengeOrdered By: Dr. Mario on 08-04-2022 ALP [Catalytic activity/Vol] 73 U/L 45-117 [facility] ALT [Catalytic activity/Vol] 25 U/L 16-61 [facility] CO2 [Moles/Vol] 32.0 mmol/L 21.0-32.0 [facility] Globulin (S) [Mass/Vol] 4.3 g/dL 2.2-4.2 [facility] Urea nitrogen/Creatinine [Mass ratio] 18.2 mg/mg 10-20 [facility] Laboratory - Hematology and Cell countsOrdered By: Dr. Mario on 08-04-2022 Erythrocyte distribution width (RBC) [Entitic vol] 52.4 fL 35.1-43.9 [facility] Erythrocyte distribution width (RBC) [Ratio] 14.2 % 11.6-14.6 [facility] Immature granulocytes/100 WBC (Bld) 0.300 % 0.0-0.9 [facility] Comment on above: IG% - Immature Granu locytes (promyelocytes, myelocytes and metamyelocytes) > 1% indicates that a LEFT SHIFT is Present. MCH (RBC) [Entitic mass] 31.3 pg 27.0-32.0 [facility] Nucleated RBC/100 WBC (Bld) [Ratio] 0 % 0-5 [facility] MCHC Auto (RBC) [Mass/Vol]Or dered By: Dr. Mario on 08-04-2022 MCHC (RBC) [Mass/Vol] 31.3 g/dL 32-36 [facility] No Panel InformationOrdered By: Dr. Mario on 08-04-2022 Estimated GFR (MDRD) Amer 123 mL/min >60 [facility] Comment on above: GFR Calc Estimated GFR (MDRD) Non-Af Amer 102 mL/min >60 [facility] Comment on above: Non- GFR Calc Platelets bldOrdered By: Dr. Mario on 08-04-2022 Platelets (Bld) [#/Vol] 135 10*3/uL 150-450 [facility] Serum or plasma albumin tay urement (mass/volume)Ordered By: Dr. Mario on 08-04-2022 Albumin [Mass/Vol] 3.1 g/dL 3.2-5.0 [facility] Serum or plasma albumin/glob ulin mass ratioOrdered By: Dr. Mario on 08-04-2022 Albumin/Globulin [Mass ratio] 0.7 {ratio} 0.9-2.4 [facility] Serum or plasma calcium tay urement (mass/volume)Ordered By: Dr. Mario on 08-04-2022 Calcium [Mass/Vol] 8.9 mg/dL 8.5-10.1 [facility] Serum or plasma cholesterol in HDL measurement (mass/volume)Ordered By: Dr. Mario on 08-04-2022 Cholesterol in HDL [Mass/Vol] 50 mg/dL >40 [facility] Comment on above: The drugs N-Acetylcy steine and Metamizole may falsely depress this assay. Reference Range HDL <40 mg/dL Low HDL Cholesterol HDL >or= 60 mg/dL High HDL Cholesterol Serum or plasma cholesterol in VLDL measurement (mass/volume)Ordered By: Dr. Mario on 08-04-2022 Cholesterol in VLDL [Mass/Vol] 21 mg/dL 5-40 [facility] Serum or plasma creatinine m easurement (mass/volume)Ordered By: Dr. Mario on 08-04-2022 Creatinine [Mass/Vol] 0.77 mg/dL 0.70-1.30 [facility] Comment on above: The validity of the calculated GFR & GFRAA in patients over 70 years has not been determined. Clinical correlation is essential. Serum or plasma low density lipoprotein (LDL) cholesterol measurement (mass/volume)Ordered By: Dr. Mario on 08-04-2022 Cholesterol in LDL [Mass/Vol] 45 mg/dL 0-130 [facility] Serum or plasma urea nitroge n measurement (mass/volume)Ordered By: Dr. Mario on 08-04-2022 Urea nitrogen [Mass/Vol] 14 mg/dL 7-18 [facility] Thin prep Papanicolaou smear with manual screeningOrdered By: Dr. Mario on 08-04-2022 Thin prep Papanicolaou smear with manual screening 33 U/L 15-37 [facility] Comment on above: Moderate Hemolysis, Result may be falsely increased. Thin prep Papanicolaou smear with manual screening 3 5-15 [facility] Absolute lymphocyte counton 12-03-2021 Lymphocytes Auto (Unsp spec) [#/Vol] 2.18 10*3/uL 0.83-4.51 [facility] Work Phone: Basophil percentageon 2021 Basophils/100 WBC (Bld) 0.4 % 0-1 [facility] Work Phone: [phone] Chloride [Moles/Vol] 104 mmol/L 98-107 [facility] Work Phone: [phone] Eosinophils/100 WBC (Bld) 0.9 % 0-5 [facility] Work Phone: [phone] Glucose [Mass/Vol] 100 mg/dL 74-106 [facility] Work Phone: Comment on above: Fasting Glucose resu lt from 100 to 125 mg/dL suggests IMPAIRED HOMEOSTASIS per A.D.A. criteria. Neutrophils (Bld) [#/Vol] 5.7 10*3/uL 2.0-7.7 [facility] Work Phone: Neutrophils/100 WBC (Bld) 63.0 % 47-70 [facility] Work Phone: [phone] Potassium [Moles/Vol] 4.6 mmol/L 3.5-5.1 [facility] Work Phone: Sodium [Moles/Vol] 139 mmol/L 136-145 [facility] Work Phone: WBC (Bld) [#/Vol] 9.0 10*3/uL 4.4-11.0 [facility] Work Phone: Blood erythrocytes count (nu mber/volume)on 12-03-2021 RBC (Bld) [#/Vol] 4.62 10*6/uL 4.6-6.2 [facility]: Blood hemoglobin measurement (mass/volume)on 12-03-2021 Hemoglobin (Bld) [Mass/Vol] 14.7 g/dL 13.0-16.5 [facility] Work Phone: Blood lymphocytes/100 leukoc yteson 12-03-2021 Lymphocytes/100 WBC (Bld) 24.2 % 19-41 [facility] Work Phone: Blood monocytes/100 leukocyt eson 12-03-2021 Monocytes/100 WBC (Bld) 11.1 % 0-10 [facility] Work Phone: Blood platelet mean volumeon 12-03-2021 Platelet mean volume (Bld) [Entitic vol] 11.0 fL 6.2-12.0 [facility] Work Phone: Determination of erythrocyte mean corpuscular volume (MCV)on 12-03-2021 MCV (RBC) [Entitic vol] 96.3 fL 80-94 [facility] Work Phone: Hematocrit Auto (Bld) [Volum e fraction]on 12-03-2021 Hematocrit (Bld) [Volume fraction] 44.5 % 40-54 [facility] Work Phone: Laboratory - Chemistry and C hemistry - challengeon 12-03-2021 CO2 [Moles/Vol] 33.0 mmol/L 21.0-32.0 [facility] Work Phone: Magnesium [Mass/Vol] 2.4 mg/dL 1.6-2.6 [facility] Work Phone: Urea nitrogen/Creatinine [Mass ratio] 21.2 mg/mg 10-20 [facility] Work Phone: Laboratory - Hematology and Cell countson 12-03-2021 Erythrocyte distribution width (RBC) [Entitic vol] 49.6 fL 35.1-43.9 [facility] Work Phone: Erythrocyte distribution width (RBC) [Ratio] 14.1 % 11.6-14.6 [facility] Work Phone: Immature granulocytes/100 WBC (Bld) 0.400 % 0.0-0.9 [facility] Work Phone: Comment on above: IG% - Immature Granu locytes (promyelocytes, myelocytes and metamyelocytes) > 1% indicates that a LEFT SHIFT is Present. MCH (RBC) [Entitic mass] 31.8 pg 27.0-32.0 [facility] Work Phone: Nucleated RBC/100 WBC (Bld) [Ratio] 0 % 0-5 [facility] Work Phone: MCHC Auto (RBC) [Mass/Vol]on 12-03-2021 MCHC (RBC) [Mass/Vol] 33.0 g/dL 32-36 [facility] Work Phone: No Panel Informationon 12-03 Estimated GFR (MDRD) Amer 92 mL/min >60 [facility] Work Phone: Comment on above: GFR Calc Estimated GFR (MDRD) Non-Af Amer 76 mL/min >60 [facility] Work Phone: Comment on above: Non- GFR Calc Thyroid Stimulating Hormone (TSH) 2.10 uIU/mL 0.358-3.74 [facility] Work Phone: Platelets bldon 12-03-2021 Platelets (Bld) [#/Vol] 168 10*3/uL 150-450 [facility] Work Phone: Serum or plasma calcium tay urement (mass/volume)on 12-03-2021 Calcium [Mass/Vol] 9.4 mg/dL 8.5-10.1 [facility] Work Phone: Serum or plasma creatinine m easurement (mass/volume)on 12-03-2021 Creatinine [Mass/Vol] 0.99 mg/dL 0.70-1.30 [facility] Work Phone: Comment on above: The validity of the calculated GFR & GFRAA in patients over 70 years has not been determined. Clinical correlation is essential. Serum or plasma urea nitroge n measurement (mass/volume)on 12-03-2021 Urea nitrogen [Mass/Vol] 21 mg/dL 7-18 [facility] Work Phone: Thin prep Papanicolaou smear with manual screeningon 12-03-2021 Thin prep Papanicolaou smear with manual screening 2 5-15 [facility] Work Phone: No Panel Information [facility] Stool gastrointestinal hemog lobin detection by immunologic method Lower GI hemoglobin IA Ql (Stl) [facility] Work Phone: Vital Signs Date Time Vital Sign Value Performing Clinician Jake contreras 03-10-2025 17:13-0400 Body temperature 97.9 [degF] Dr. Addi Mario MD Work Phone: [facility] 03-10-2025 17:13-0400 Diastolic blood pressure 76 mm[Hg] Dr. Addi Mario MD Work Phone: [facility] 03-10-2025 17:13-0400 Heart rate 63 /min Dr. Addi Mario MD Work Phone: [facility] 03-10-2025 17:13-0400 Respiratory rate 16 /min Dr. Addi Mario MD Work Phone: [facility] 03-10-2025 17:13-0400 SaO2% (BldA) [Mass fraction] 97 % Dr. Addi Mario MD Work Phone: [facility] 03-10-2025 17:13-0400 Systolic blood pressure 128 mm[Hg] Dr. Addi Mario MD Work Phone: [facility] 03-10-2025 16:23-0400 Body mass index (BMI) [Ratio] 30.9 kg/m2 Dr. Addi Mario MD Work Phone: [facility] 03-10-2025 16:23-0400 Body weight 103.[address] Addi Mario MD Work Phone: [facility] 03-10-2025 16:06-0400 Body height 182.[address] Addi Mario MD Work Phone: [facility] 02-19-2025 06:29-0400 Body height 182.[address] Addi Mario MD Work Phone: [facility] 02-19-2025 06:29-0400 Body mass index (BMI) [Ratio] 30.1 kg/m2 Dr. Addi Mario MD Work Phone: [facility] 02-19-2025 06:29-0400 Body weight 100.[address] Addi Mario MD Work Phone: [facility] 02-19-2025 06:29-0400 Diastolic blood pressure 80 mm[Hg] Dr. Addi Mario MD Work Phone: [facility] 02-19-2025 06:29-0400 Heart rate 78 /min Dr. Addi Mario MD Work Phone: [facility] 02-19-2025 06:29-0400 Respiratory rate 18 /min Dr. Addi Mario MD Work Phone: [facility] 02-19-2025 06:29-0400 SaO2% (BldA) [Mass fraction] 98 % Dr. Addi Mario MD Work Phone: [facility] 02-19-2025 06:29-0400 Systolic blood pressure 156 mm[Hg] Dr. Addi Mario MD Work Phone: [facility] 02-14-2025 14:27-0400 Body height 182.[address] Addi Mario MD Work Phone: [facility] 02-14-2025 14:27-0400 Body mass index (BMI) [Ratio] 30.1 kg/m2 Dr. Addi Mario MD Work Phone: [facility] 02-14-2025 14:27-0400 Body temperature 98 [degF] Dr. Addi Mario MD Work Phone: [facility] 02-14-2025 14:27-0400 Body weight 100.[address] Addi Mario MD Work Phone: [facility] 02-14-2025 14:27-0400 Diastolic blood pressure 78 mm[Hg] Dr. Addi Mario MD Work Phone: [facility] 02-14-2025 14:27-0400 Heart rate 60 /min Dr. Addi Mario MD Work Phone: [facility] 02-14-2025 14:27-0400 Respiratory rate 16 /min Dr. Addi Mario MD Work Phone: [facility] 02-14-2025 14:27-0400 SaO2% (BldA) [Mass fraction] 96 % Dr. Addi Mario MD Work Phone: [facility] 02-14-2025 14:27-0400 Systolic blood pressure 124 mm[Hg] Dr. Addi Mario MD Work Phone: [facility] 12-14-2024 08:21-0400 Body mass index (BMI) [Ratio] 29.7 kg/m2 Dr. Addi Mario MD Work Phone: [facility] 12-14-2024 08:21-0400 Body temperature 96.7 [degF] Dr. Addi Mario MD Work Phone: [facility] 12-14-2024 08:21-0400 Body weight 99.[address] Addi Mario MD Work Phone: [facility] 12-14-2024 08:21-0400 Diastolic blood pressure 74 mm[Hg] Dr. Addi Mario MD Work Phone: [facility] 12-14-2024 08:21-0400 Heart rate 59 /min Dr. Addi Mario MD Work Phone: [facility] 12-14-2024 08:21-0400 Respiratory rate 20 /min Dr. Addi Mario MD Work Phone: [facility] 12-14-2024 08:21-0400 SaO2% (BldA) [Mass fraction] 98 % Dr. Addi Mario MD Work Phone: [facility] 12-14-2024 08:21-0400 Systolic blood pressure 147 mm[Hg] Dr. Addi aMrio MD Work Phone: [facility] 11-15-2024 15:09-0500 Body height 182.[address] Addi Mario MD Work Phone: [facility] 11-15-2024 15:09-0500 Body mass index (BMI) [Ratio] 29.7 kg/m2 Dr. Addi Mario MD Work Phone: [facility] 11-15-2024 15:09-0500 Body temperature 96.8 [degF] Dr. Addi Mario MD Work Phone: [facility] 11-15-2024 15:09-0500 Body weight 99.[address] Addi Mario MD Work Phone: [facility] 11-15-2024 15:09-0500 Diastolic blood pressure 60 mm[Hg] Dr. Addi Mario MD Work Phone: [facility] 11-15-2024 15:09-0500 Heart rate 60 /min Dr. Addi Mario MD Work Phone: [facility] 11-15-2024 15:09-0500 Respiratory rate 18 /min Dr. Addi Mario MD Work Phone: [facility] 11-15-2024 15:09-0500 SaO2% (BldA) [Mass fraction] 99 % Dr. Addi Mario MD Work Phone: [facility] 11-15-2024 15:09-0500 Systolic blood pressure 130 mm[Hg] Dr. Addi Mario MD Work Phone: [facility] 10-23-2024 13:58-0500 Body mass index (BMI) [Ratio] 29.5 kg/m2 Dr. Addi Mario MD Work Phone: [facility] 10-23-2024 13:58-0500 Body weight 98.[address] Addi Mario MD Work Phone: [facility] 10-23-2024 13:58-0500 Diastolic blood pressure 77 mm[Hg] Dr. Addi Mario MD Work Phone: [facility] 10-23-2024 13:58-0500 Heart rate 67 /min Dr. Addi Mario MD Work Phone: [facility] 10-23-2024 13:58-0500 Respiratory rate 18 /min Dr. Addi Mario MD Work Phone: [facility] 10-23-2024 13:58-0500 SaO2% (BldA) [Mass fraction] 99 % Dr. Addi Mario MD Work Phone: [facility] 10-23-2024 13:58-0500 Systolic blood pressure 140 mm[Hg] Dr. Addi Mario MD Work Phone: [facility] 08-15-2024 14:31-0500 Body mass index (BMI) [Ratio] 29.7 kg/m2 Dr. Addi Mario MD Work Phone: [facility] 08-15-2024 14:31-0500 Body temperature 97.3 [degF] Dr. Addi Mario MD Work Phone: [facility] 08-15-2024 14:31-0500 Body weight 99.[address] Addi Mario MD Work Phone: [facility] 08-15-2024 14:31-0500 Diastolic blood pressure 78 mm[Hg] Dr. Addi Mario MD Work Phone: [facility] 08-15-2024 14:31-0500 Heart rate 66 /min Dr. Addi Mario MD Work Phone: [facility] 08-15-2024 14:31-0500 Respiratory rate 14 /min Dr. Addi Mario MD Work Phone: [facility] 08-15-2024 14:31-0500 SaO2% (BldA) [Mass fraction] 98 % Dr. Addi Mario MD Work Phone: [facility] 08-15-2024 14:31-0500 Systolic blood pressure 120 mm[Hg] Dr. Addi Mario MD Work Phone: [facility] 08-09-2024 13:23-0500 Body mass index (BMI) [Ratio] 29.4 kg/m2 Dr. Addi Mario MD Work Phone: [facility] 08-09-2024 13:23-0500 Body temperature 97.6 [degF] Dr. Addi Mario MD Work Phone: [facility] 08-09-2024 13:23-0500 Body weight 98.[address] Addi Mario MD Work Phone: [facility] 08-09-2024 13:23-0500 Diastolic blood pressure 64 mm[Hg] Dr. Addi Mario MD Work Phone: [facility] 08-09-2024 13:23-0500 Heart rate 52 /min Dr. Addi Mario MD Work Phone: [facility] 08-09-2024 13:23-0500 Respiratory rate 18 /min Dr. Addi Mario MD Work Phone: [facility] 08-09-2024 13:23-0500 SaO2% (BldA) [Mass fraction] 92 % Dr. Addi Mario MD Work Phone: [facility] 08-09-2024 13:23-0500 Systolic blood pressure 134 mm[Hg] Dr. Addi Mario MD Work Phone: [facility] 01-01-2024 09:53-0400 Body temperature 97.6 [degF] Dr. Addi Mario Work Phone: [facility] 01-01-2024 09:53-0400 Diastolic blood pressure 52 mm[Hg] Dr. Addi Mario Work Phone: [facility] 01-01-2024 09:53-0400 Heart rate 60 /min Dr. Addi Mario Work Phone: [facility] 01-01-2024 09:53-0400 Respiratory rate 17 /min Dr. Addi Mario Work Phone: [facility] 01-01-2024 09:53-0400 SaO2% (BldA) [Mass fraction] 98 % Dr. Addi Mario Work Phone: [facility] 01-01-2024 09:53-0400 Systolic blood pressure 103 mm[Hg] Dr. Addi Mario Work Phone: [facility] 12-28-2023 15:54-0400 Body height 182.[address] Addi Mario Work Phone: [facility] 12-28-2023 15:54-0400 Body weight 99.[address] Addi Mario Work Phone: [facility] 12-27-2023 13:00-0400 Body mass index (BMI) [Ratio] 29.7 kg/m2 Dr. Addi Mario Work Phone: [facility] 12-27-2023 10:02-0400 Diastolic blood pressure 68 mm[Hg] Dr. Addi Mario Work Phone: [facility] 12-27-2023 10:02-0400 Heart rate 66 /min Dr. Addi Mario Work Phone: [facility] 12-27-2023 10:02-0400 Systolic blood pressure 127 mm[Hg] Dr. Addi Mario Work Phone: [facility] 12-27-2023 08:54-0400 Body height 182.[address] Addi Mario Work Phone: [facility] 12-27-2023 08:54-0400 Body mass index (BMI) [Ratio] 29.8 kg/m2 Dr. Addi Mario Work Phone: [facility] 12-27-2023 08:54-0400 Body weight 99.[address] Addi Mario Work Phone: [facility] 12-27-2023 08:54-0400 Diastolic blood pressure 75 mm[Hg] Dr. Addi Mario Work Phone: [facility] 12-27-2023 08:54-0400 Heart rate 65 /min Dr. Addi Mario Work Phone: [facility] 12-27-2023 08:54-0400 Respiratory rate 18 /min Dr. Addi Mario Work Phone: [facility] 12-27-2023 08:54-0400 Systolic blood pressure 129 mm[Hg] Dr. Addi Mario Work Phone: [facility] 12-26-2023 14:11-0400 Body temperature 97.1 [degF] Dr. Addi Mario Work Phone: [facility] 12-26-2023 14:11-0400 Respiratory rate 14 /min Dr. Addi Mario Work Phone: [facility] 12-26-2023 14:11-0400 SaO2% (BldA) [Mass fraction] 98 % Dr. Addi Mario Work Phone: [facility] 12-21-2023 16:10-0400 Body temperature 97 [degF] Dr. Addi Mario Work Phone: [facility] 12-21-2023 16:10-0400 Diastolic blood pressure 60 mm[Hg] Dr. Addi Mario Work Phone: [facility] 12-21-2023 16:10-0400 Heart rate 62 /min Dr. Addi Mario Work Phone: [facility] 12-21-2023 16:10-0400 Respiratory rate 16 /min Dr. Addi Mario Work Phone: [facility] 12-21-2023 16:10-0400 SaO2% (BldA) [Mass fraction] 97 % Dr. Addi Mario Work Phone: [facility] 12-21-2023 16:10-0400 Systolic blood pressure 148 mm[Hg] Dr. Addi Mario Work Phone: [facility] 12-21-2023 15:39-0400 Body weight 101.[address] Addi Mario Work Phone: [facility] 12-21-2023 14:26-0400 Body mass index (BMI) [Ratio] 31.7 kg/m2 Dr. Addi Mario Work Phone: [facility] 12-21-2023 14:26-0400 Body weight 106.[address] Addi Mario Work Phone: [facility] 12-20-2023 12:45-0400 Body mass index (BMI) [Ratio] 30.3 kg/m2 Dr. Addi Mario Work Phone: [facility] 12-08-2023 09:30-0400 Body temperature 97.7 [degF] Dr. Addi Mario Work Phone: [facility] 12-08-2023 09:30-0400 Diastolic blood pressure 80 mm[Hg] Dr. Addi Mario Work Phone: [facility] 12-08-2023 09:30-0400 Heart rate 68 /min Dr. Addi Mario Work Phone: [facility] 12-08-2023 09:30-0400 Respiratory rate 16 /min Dr. Addi Mario Work Phone: [facility] 12-08-2023 09:30-0400 SaO2% (BldA) [Mass fraction] 96 % Dr. Addi Mario Work Phone: [facility] 12-08-2023 09:30-0400 Systolic blood pressure 119 mm[Hg] Dr. Addi Mario Work Phone: [facility] 12-08-2023 02:28-0400 Body mass index (BMI) [Ratio] 31 kg/m2 Dr. Addi Mario Work Phone: [facility] 12-08-2023 02:28-0400 Body weight 103.[address] Addi Mario Work Phone: [facility] 12-07-2023 08:20-0400 Body height 182.[address] Addi Mario Work Phone: [facility] 12-05-2023 20:07-0400 Inhaled oxygen flow rate 3 L/min Dr. Addi Mario Work Phone: [facility] 12-02-2023 16:45-0400 Body temperature 99.1 [degF] Dr. Addi Mario Work Phone: [facility] 12-02-2023 16:45-0400 Diastolic blood pressure 65 mm[Hg] Dr. Addi Mario Work Phone: [facility] 12-02-2023 16:45-0400 Heart rate 90 /min Dr. Addi Mario Work Phone: [facility] 12-02-2023 16:45-0400 Respiratory rate 26 /min Dr. Addi Mario Work Phone: [facility] 12-02-2023 16:45-0400 SaO2% (BldA) [Mass fraction] 94 % Dr. Addi Mario Work Phone: [facility] 12-02-2023 16:45-0400 Systolic blood pressure 129 mm[Hg] Dr. Addi Mario Work Phone: [facility] 12-02-2023 12:31-0400 Body height 182.[address] Addi Mario Work Phone: [facility] 12-02-2023 12:31-0400 Body mass index (BMI) [Ratio] 31.7 kg/m2 Dr. Addi Mario Work Phone: [facility] 12-02-2023 12:31-0400 Body weight 106.[address] Addi Mario Work Phone: [facility] 10-20-2023 09:47-0500 Body mass index (BMI) [Ratio] 31.3 kg/m2 Dr. Addi Mario Work Phone: [facility] 10-20-2023 09:47-0500 Body weight 104.[address] Addi Mario Work Phone: [facility] 10-20-2023 09:47-0500 Diastolic blood pressure 72 mm[Hg] Dr. Addi Mario Work Phone: [facility] 10-20-2023 09:47-0500 Heart rate 66 /min Dr. Addi Mario Work Phone: [facility] 10-20-2023 09:47-0500 Respiratory rate 18 /min Dr. Addi Mario Work Phone: [facility] 10-20-2023 09:47-0500 Systolic blood pressure 131 mm[Hg] Dr. Addi Mario Work Phone: [facility] 08-15-2023 14:47-0500 Body mass index (BMI) [Ratio] 31.4 kg/m2 Dr. Addi Mario Work Phone: [facility] 08-15-2023 14:47-0500 Body temperature 97.5 [degF] Dr. Addi Mario Work Phone: [facility] 08-15-2023 14:47-0500 Body weight [address] Addi Mario Work Phone: [facility] 08-15-2023 14:47-0500 Diastolic blood pressure 76 mm[Hg] Dr. Addi Mario Work Phone: [facility] 08-15-2023 14:47-0500 Heart rate 61 /min Dr. Addi Mario Work Phone: [facility] 08-15-2023 14:47-0500 Respiratory rate 18 /min Dr. Addi Mario Work Phone: [facility] 08-15-2023 14:47-0500 SaO2% (BldA) [Mass fraction] 99 % Dr. Addi Mario Work Phone: [facility] 08-15-2023 14:47-0500 Systolic blood pressure 128 mm[Hg] Dr. Addi Mario Work Phone: [facility] 04-28-2023 14:10-0400 Body height 182.[address] Addi Mario Work Phone: [facility] 04-28-2023 14:10-0400 Body mass index (BMI) [Ratio] 31.6 kg/m2 Dr. Addi Mario Work Phone: [facility] 04-28-2023 14:10-0400 Body temperature 97.4 [degF] Dr. Addi Mario Work Phone: [facility] 04-28-2023 14:10-0400 Body weight 105.[address] Addi Mario Work Phone: [facility] 04-28-2023 14:10-0400 Diastolic blood pressure 78 mm[Hg] Dr. Addi Mario Work Phone: [facility] 04-28-2023 14:10-0400 Heart rate 68 /min Dr. Addi Mario Work Phone: [facility] 04-28-2023 14:10-0400 Respiratory rate 18 /min Dr. Addi Mario Work Phone: [facility] 04-28-2023 14:10-0400 SaO2% (BldA) [Mass fraction] 94 % Dr. Addi Mario Work Phone: [facility] 04-28-2023 14:10-0400 Systolic blood pressure 132 mm[Hg] Dr. Addi Mario Work Phone: [facility] 04-22-2023 22:20-0400 Diastolic blood pressure 76 mm[Hg] Dr. Addi Mario Work Phone: [facility] 04-22-2023 22:20-0400 Heart rate 83 /min Dr. Addi Mario Work Phone: [facility] 04-22-2023 22:20-0400 Respiratory rate 14 /min Dr. Addi Mario Work Phone: [facility] 04-22-2023 22:20-0400 SaO2% (BldA) [Mass fraction] 97 % Dr. Addi Mario Work Phone: [facility] 04-22-2023 22:20-0400 Systolic blood pressure 145 mm[Hg] Dr. Addi Mario Work Phone: [facility] 04-22-2023 20:18-0400 Body height 182.[address] Addi Mario Work Phone: [facility] 04-22-2023 20:18-0400 Body mass index (BMI) [Ratio] 31.5 kg/m2 Dr. Addi Mario Work Phone: [facility] 04-22-2023 20:18-0400 Body temperature 98.6 [degF] Dr. Addi Mario Work Phone: [facility] 04-22-2023 20:18-0400 Body weight 105.[address] Addi Mario Work Phone: [facility] 04-12-2023 14:02-0400 Body mass index (BMI) [Ratio] 31.7 kg/m2 Dr. Addi Mario Work Phone: [facility] 04-12-2023 14:02-0400 Body weight 106.[address] Addi Mario Work Phone: [facility] 04-12-2023 14:02-0400 Diastolic blood pressure 75 mm[Hg] Dr. Addi Mario Work Phone: [facility] 04-12-2023 14:02-0400 Heart rate 64 /min Dr. Addi Mario Work Phone: [facility] 04-12-2023 14:02-0400 Respiratory rate 20 /min Dr. Addi Mario Work Phone: [facility] 04-12-2023 14:02-0400 SaO2% (BldA) [Mass fraction] 99 % Dr. Addi Mario Work Phone: [facility] 04-12-2023 14:02-0400 Systolic blood pressure 140 mm[Hg] Dr. Addi Mario Work Phone: [facility] 03-25-2023 13:24-0400 Respiratory rate 18 /min Dr. Addi Mario Work Phone: [facility] 03-25-2023 11:28-0400 Body mass index (BMI) [Ratio] 31.4 kg/m2 Dr. Addi Mario Work Phone: [facility] 03-25-2023 11:28-0400 Body temperature 98.2 [degF] Dr. Addi Mario Work Phone: [facility] 03-25-2023 11:28-0400 Body weight 105.[address] Addi Mario Work Phone: [facility] 03-25-2023 11:28-0400 Diastolic blood pressure 67 mm[Hg] Dr. Addi Mario Work Phone: [facility] 03-25-2023 11:28-0400 Heart rate 62 /min Dr. Addi Mario Work Phone: [facility] 03-25-2023 11:28-0400 SaO2% (BldA) [Mass fraction] 98 % Dr. Addi Mario Work Phone: [facility] 03-25-2023 11:28-0400 Systolic blood pressure 172 mm[Hg] Dr. Addi Mario Work Phone: [facility] 03-24-2023 16:41-0400 Body mass index (BMI) [Ratio] 31.7 kg/m2 Dr. Addi Mario Work Phone: [facility] 03-24-2023 16:41-0400 Body temperature 97.9 [degF] Dr. Addi Mario Work Phone: [facility] 03-24-2023 16:41-0400 Body weight 106.[address] Addi Mario Work Phone: [facility] 03-24-2023 16:41-0400 Diastolic blood pressure 84 mm[Hg] Dr. Addi Mario Work Phone: [facility] 03-24-2023 16:41-0400 Heart rate 62 /min Dr. Addi Mario Work Phone: [facility] 03-24-2023 16:41-0400 Respiratory rate 16 /min Dr. Addi Mario Work Phone: [facility] 03-24-2023 16:41-0400 SaO2% (BldA) [Mass fraction] 98 % Dr. Addi Mario Work Phone: [facility] 03-24-2023 16:41-0400 Systolic blood pressure 120 mm[Hg] Dr. Addi Mario Work Phone: [facility] 03-21-2023 23:06-0400 Respiratory rate 16 /min Dr. Addi Mario Work Phone: [facility] 03-21-2023 19:55-0400 Body height 182.[address] Addi Mario Work Phone: [facility] 03-21-2023 19:55-0400 Body mass index (BMI) [Ratio] 31.6 kg/m2 Dr. Addi Mario Work Phone: [facility] 03-21-2023 19:55-0400 Body temperature 98 [degF] Dr. Addi Mario Work Phone: [facility] 03-21-2023 19:55-0400 Body weight 105.[address] Addi Mario Work Phone: [facility] 03-21-2023 19:55-0400 Diastolic blood pressure 65 mm[Hg] Dr. Addi Mario Work Phone: [facility] 03-21-2023 19:55-0400 Heart rate 54 /min Dr. Addi Mario Work Phone: [facility] 03-21-2023 19:55-0400 SaO2% (BldA) [Mass fraction] 97 % Dr. Addi Mario Work Phone: [facility] 03-21-2023 19:55-0400 Systolic blood pressure 167 mm[Hg] Dr. Addi Mario Work Phone: [facility] 03-12-2023 14:56-0400 Diastolic blood pressure 82 mm[Hg] Dr. Addi Mario Work Phone: [facility] 03-12-2023 14:56-0400 Heart rate 50 /min Dr. Addi Mario Work Phone: [facility] 03-12-2023 14:56-0400 Respiratory rate 14 /min Dr. Addi Mario Work Phone: [facility] 03-12-2023 14:56-0400 SaO2% (BldA) [Mass fraction] 99 % Dr. Addi Mario Work Phone: [facility] 03-12-2023 14:56-0400 Systolic blood pressure 131 mm[Hg] Dr. Addi Mario Work Phone: [facility] 03-12-2023 12:20-0400 Body height 182.[address] Addi Mario Work Phone: [facility] 03-12-2023 12:20-0400 Body mass index (BMI) [Ratio] 31.9 kg/m2 Dr. Addi Mario Work Phone: [facility] 03-12-2023 12:20-0400 Body temperature 96.8 [degF] Dr. Addi Mario Work Phone: [facility] 03-12-2023 12:20-0400 Body weight 106.[address] Addi Mario Work Phone: [facility] 01-22-2023 10:04-0400 Body height 182.[address] Addi Mario Work Phone: [facility] 01-22-2023 10:04-0400 Body mass index (BMI) [Ratio] 31.6 kg/m2 Dr. Addi Mario Work Phone: [facility] 01-22-2023 10:04-0400 Body temperature 97.6 [degF] Dr. Addi Mario Work Phone: [facility] 01-22-2023 10:04-0400 Body weight 105.[address] Addi Mario Work Phone: [facility] 01-22-2023 10:04-0400 Diastolic blood pressure 66 mm[Hg] Dr. Addi Mario Work Phone: [facility] 01-22-2023 10:04-0400 Heart rate 57 /min Dr. Addi Mario Work Phone: [facility] 01-22-2023 10:04-0400 Respiratory rate 18 /min Dr. Addi Mario Work Phone: [facility] 01-22-2023 10:04-0400 SaO2% (BldA) [Mass fraction] 97 % Dr. Addi Mario Work Phone: [facility] 01-22-2023 10:04-0400 Systolic blood pressure 141 mm[Hg] Dr. Addi Mario Work Phone: [facility] 12-29-2022 14:18-0400 Body mass index (BMI) [Ratio] 31.7 kg/m2 Dr. Addi Mario Work Phone: [facility] 12-29-2022 14:18-0400 Body temperature 97.9 [degF] Dr. Addi Mario Work Phone: [facility] 12-29-2022 14:18-0400 Body weight 106.[address] Addi Mario Work Phone: [facility] 12-29-2022 14:18-0400 Diastolic blood pressure 70 mm[Hg] Dr. Addi Mario Work Phone: [facility] 12-29-2022 14:18-0400 Heart rate 57 /min Dr. Addi Mario Work Phone: [facility] 12-29-2022 14:18-0400 Respiratory rate 12 /min Dr. Addi Mario Work Phone: [facility] 12-29-2022 14:18-0400 SaO2% (BldA) [Mass fraction] 97 % Dr. Addi Mario Work Phone: [facility] 12-29-2022 14:18-0400 Systolic blood pressure 138 mm[Hg] Dr. Addi Mario Work Phone: [facility] 11-03-2022 08:14-0500 Body mass index (BMI) [Ratio] 31.1 kg/m2 Dr. Addi Mario Work Phone: [facility] 11-03-2022 08:14-0500 Body temperature 97.2 [degF] Dr. Addi Mario Work Phone: [facility] 11-03-2022 08:14-0500 Body weight 104.[address] Addi Mario Work Phone: [facility] 11-03-2022 08:14-0500 Diastolic blood pressure 80 mm[Hg] Dr. Addi Mario Work Phone: [facility] 11-03-2022 08:14-0500 Heart rate 64 /min Dr. Addi Mario Work Phone: [facility] 11-03-2022 08:14-0500 Respiratory rate 18 /min Dr. Addi Mario Work Phone: [facility] 11-03-2022 08:14-0500 SaO2% (BldA) [Mass fraction] 97 % Dr. Addi Mario Work Phone: [facility] 11-03-2022 08:14-0500 Systolic blood pressure 157 mm[Hg] Dr. Addi Mario Work Phone: [facility] 10-05-2022 13:09-0500 Body height 182.[address] Addi Mario Work Phone: [facility] 10-05-2022 13:09-0500 Body mass index (BMI) [Ratio] 31.8 kg/m2 Dr. Addi Mario Work Phone: [facility] 10-05-2022 13:09-0500 Body weight 106.[address] Addi Mario Work Phone: [facility] 10-05-2022 13:09-0500 Diastolic blood pressure 80 mm[Hg] Dr. Addi Mario Work Phone: [facility] 10-05-2022 13:09-0500 Heart rate 56 /min Dr. Addi Mario Work Phone: [facility] 10-05-2022 13:09-0500 Respiratory rate 16 /min Dr. Addi Mario Work Phone: [facility] 10-05-2022 13:09-0500 Systolic blood pressure 153 mm[Hg] Dr. Addi Mario Work Phone: [facility] 09-08-2022 12:09-0500 Diastolic blood pressure 66 mm[Hg] Dr. Addi Mario Work Phone: [facility] 09-08-2022 12:09-0500 Heart rate 54 /min Dr. Addi Mario Work Phone: [facility] 09-08-2022 12:09-0500 Systolic blood pressure 116 mm[Hg] Dr. Addi Mario Work Phone: [facility] 08-27-2022 15:25-0500 Diastolic blood pressure 74 mm[Hg] Dr. Addi Mario Work Phone: [facility] 08-27-2022 15:25-0500 Systolic blood pressure 142 mm[Hg] Dr. Addi Mario Work Phone: [facility] 08-27-2022 15:04-0500 Body height 182.[address] Addi Mario Work Phone: [facility] Work Phone: 08-27-2022 15:04-0500 Body mass index (BMI) [Ratio] 32.3 kg/m2 Dr. Addi Mario Work Phone: [facility] 08-27-2022 15:04-0500 Body temperature 96.3 [degF] Dr. Addi Mario Work Phone: [facility] 08-27-2022 15:04-0500 Body weight 107.[address] Addi Mario Work Phone: [facility] 08-27-2022 15:04-0500 Heart rate 55 /min Dr. Addi Mario Work Phone: [facility] 08-27-2022 15:04-0500 Respiratory rate 16 /min Dr. Addi Mario Work Phone: [facility] 08-27-2022 15:04-0500 SaO2% (BldA) [Mass fraction] 99 % Dr. Addi Mario Work Phone: [facility] 08-24-2022 08:12-0500 Diastolic blood pressure 70 mm[Hg] Dr. Addi Mario Work Phone: [facility] 08-24-2022 08:12-0500 Heart rate 56 /min Dr. Addi Mario Work Phone: [facility] 08-24-2022 08:12-0500 Respiratory rate 16 /min Dr. Addi Mario Work Phone: [facility] 08-24-2022 08:12-0500 SaO2% (BldA) [Mass fraction] 97 % Dr. Addi Mario Work Phone: [facility] 08-24-2022 08:12-0500 Systolic blood pressure 154 mm[Hg] Dr. Addi Mario Work Phone: [facility] 08-24-2022 06:09-0500 Body height 182.[address] Addi Mario Work Phone: [facility] Work Phone: 08-24-2022 06:09-0500 Body mass index (BMI) [Ratio] 32.8 kg/m2 Dr. Addi Mario Work Phone: [facility] 08-24-2022 06:09-0500 Body temperature 96.8 [degF] Dr. Addi Mario Work Phone: [facility] 08-24-2022 06:09-0500 Body weight 109.[address] Addi Mario Work Phone: [facility] 08-04-2022 14:02-0500 Body height 182.[address] Addi Mario Work Phone: [facility] Work Phone: 08-04-2022 14:02-0500 Body mass index (BMI) [Ratio] 32.3 kg/m2 Dr. Addi Mario Work Phone: [facility] 08-04-2022 14:02-0500 Body temperature 97.2 [degF] Dr. Addi Mario Work Phone: [facility] 08-04-2022 14:02-0500 Body weight 107.[address] Addi Mario Work Phone: [facility] 08-04-2022 14:02-0500 Diastolic blood pressure 78 mm[Hg] Dr. Addi Mario Work Phone: [facility] 08-04-2022 14:02-0500 Heart rate 52 /min Dr. Addi Mario Work Phone: [facility] 08-04-2022 14:02-0500 Respiratory rate 16 /min Dr. Addi Mario Work Phone: [facility] 08-04-2022 14:02-0500 SaO2% (BldA) [Mass fraction] 99 % Dr. Addi Mario Work Phone: [facility] 08-04-2022 14:02-0500 Systolic blood pressure 130 mm[Hg] Dr. Addi Mario Work Phone: [facility] 05-06-2022 11:43-0400 Body mass index (BMI) [Ratio] 32.4 kg/m2 Dr. Addi Mario Work Phone: [facility] Work Phone: 05-06-2022 11:43-0400 Body temperature 98.4 [degF] Dr. Addi Mario Work Phone: [facility] Work Phone: 05-06-2022 11:43-0400 Body weight 108.[address] Addi Mario Work Phone: [facility] Work Phone: 05-06-2022 11:43-0400 Diastolic blood pressure 72 mm[Hg] Dr. Addi Mario Work Phone: [facility] Work Phone: 05-06-2022 11:43-0400 Heart rate 61 /min Dr. Addi Mario Work Phone: [facility] Work Phone: 05-06-2022 11:43-0400 Respiratory rate 16 /min Dr. Addi Mario Work Phone: [facility] Work Phone: 05-06-2022 11:43-0400 SaO2% (BldA) [Mass fraction] 98 % Dr. Addi Mario Work Phone: [facility] Work Phone: 05-06-2022 11:43-0400 Systolic blood pressure 145 mm[Hg] Dr. Addi Mario Work Phone: [facility] Work Phone: 12-03-2021 14:07-0400 Body height 182.[address] dAdi Mario Work Phone: [facility] Work Phone: 12-03-2021 14:07-0400 Body mass index (BMI) [Ratio] 32.3 kg/m2 Dr. Addi Mario Work Phone: [facility] Work Phone: 12-03-2021 14:07-0400 Body temperature 97.5 [degF] Dr. Addi Mario Work Phone: [facility] Work Phone: 12-03-2021 14:07-0400 Body weight 107.[address] Addi Mario Work Phone: [facility] Work Phone: 12-03-2021 14:07-0400 Diastolic blood pressure 82 mm[Hg] Dr. Addi Mario Work Phone: [facility] Work Phone: 12-03-2021 14:07-0400 Heart rate 73 /min Dr. Addi Mario Work Phone: [facility] Work Phone: 12-03-2021 14:07-0400 Respiratory rate 20 /min Dr. Addi Mario Work Phone: [facility] Work Phone: 12-03-2021 14:07-0400 SaO2% (BldA) [Mass fraction] 97 % Dr. Addi Mario Work Phone: [facility] Work Phone: 12-03-2021 14:07-0400 Systolic blood pressure 132 mm[Hg] Dr. Addi Mario Work Phone: [facility] Work Phone: 11-12-2021 11:46-0500 Body mass index (BMI) [Ratio] 32.8 kg/m2 Dr. Addi Mario Work Phone: [facility] Work Phone: 11-12-2021 11:46-0500 Body temperature 97.5 [degF] Dr. Addi Mario Work Phone: [facility] Work Phone: 11-12-2021 11:46-0500 Body weight 109.[address] Addi Mario Work Phone: [facility] Work Phone: 11-12-2021 11:46-0500 Diastolic blood pressure 68 mm[Hg] Dr. Addi Mario Work Phone: [facility] Work Phone: 11-12-2021 11:46-0500 Heart rate 47 /min Dr. Addi Mario Work Phone: [facility] Work Phone: 11-12-2021 11:46-0500 Respiratory rate 16 /min Dr. Addi Mario Work Phone: [facility] Work Phone: 11-12-2021 11:46-0500 SaO2% (BldA) [Mass fraction] 98 % Dr. Addi Mario Work Phone: [facility] Work Phone: 11-12-2021 11:46-0500 Systolic blood pressure 150 mm[Hg] Dr. Addi Mario Work Phone: [facility] Work Phone: 11-11-2021 14:41-0500 Diastolic blood pressure 92 mm[Hg] Dr. Addi Mario Work Phone: [facility] Work Phone: 11-11-2021 14:41-0500 Systolic blood pressure 182 mm[Hg] Dr. Addi Mario Work Phone: [facility] Work Phone: 10-15-2021 13:09-0500 Body mass index (BMI) [Ratio] 32.9 kg/m2 Dr. Addi Mario Work Phone: [facility] Work Phone: 10-15-2021 13:09-0500 Body temperature 97.7 [degF] Dr. Addi Mario Work Phone: [facility] Work Phone: 10-15-2021 13:09-0500 Body weight 110.[address] Addi Mario Work Phone: [facility] Work Phone: 10-15-2021 13:09-0500 Diastolic blood pressure 70 mm[Hg] Dr. Addi Mario Work Phone: [facility] Work Phone: 10-15-2021 13:09-0500 Heart rate 66 /min Dr. Addi Mario Work Phone: [facility] Work Phone: 10-15-2021 13:09-0500 Respiratory rate 16 /min Dr. Addi Mario Work Phone: [facility] Work Phone: 10-15-2021 13:09-0500 SaO2% (BldA) [Mass fraction] 97 % Dr. Addi Mario Work Phone: [facility] Work Phone: 10-15-2021 13:09-0500 Systolic blood pressure 142 mm[Hg] Dr. Addi Mario Work Phone: [facility] Work Phone: 09-23-2021 13:16-0500 Body mass index (BMI) [Ratio] 32.8 kg/m2 Dr. Addi Mario Work Phone: [facility] Work Phone: 09-23-2021 13:16-0500 Body temperature 95.7 [degF] Dr. Addi Mario Work Phone: [facility] Work Phone: 09-23-2021 13:16-0500 Body weight 109.[address] Addi Mario Work Phone: [facility] Work Phone: 09-23-2021 13:16-0500 Diastolic blood pressure 70 mm[Hg] Dr. Addi Mario Work Phone: [facility] Work Phone: 09-23-2021 13:16-0500 Heart rate 57 /min Dr. Addi Mario Work Phone: [facility] Work Phone: 09-23-2021 13:16-0500 Respiratory rate 16 /min Dr. Addi Mario Work Phone: [facility] Work Phone: 09-23-2021 13:16-0500 SaO2% (BldA) [Mass fraction] 96 % Dr. Addi Mario Work Phone: [facility] Work Phone: 09-23-2021 13:16-0500 Systolic blood pressure 166 mm[Hg] Dr. Addi Mario Work Phone: [facility] Work Phone: 08-18-2021 13:02-0500 Body mass index (BMI) [Ratio] 32.9 kg/m2 Dr. Addi Mario Work Phone: [facility] Work Phone: 08-18-2021 13:02-0500 Body weight 110.[address] Addi Mario Work Phone: [facility] Work Phone: 08-18-2021 13:02-0500 Diastolic blood pressure 69 mm[Hg] Dr. Addi Mario Work Phone: [facility] Work Phone: 08-18-2021 13:02-0500 Heart rate 47 /min Dr. Addi Mario Work Phone: [facility] Work Phone: 08-18-2021 13:02-0500 Respiratory rate 14 /min Dr. Addi Mario Work Phone: [facility] Work Phone: 08-18-2021 13:02-0500 Systolic blood pressure 127 mm[Hg] Dr. Addi Mario Work Phone: [facility] Work Phone: Encounters Encounter Date Encounter Type Care Provider Facility Start: 03-14-2025 ambulatory Gretchen Nguyen NP Facili ty:[facility] Start: 03-10-2025 End: 03-10-2025 Emergency department patient visit Dr. Addi Mario MD Work Phone: -Emergency Department Work Phone: Start: 03-07-2025 End: 03-07-[address] Addi Mario MD Work Phone: [facility] Work Phone: Start: 03-07-2025 End: 03-07-2025 Patient encounter procedure Gretchen Nguyen PREVENTIVE MEDICINE PHYSICIAN-C -Laboratory Work Phone: Start: 03-07-2025 End: 03-07-2025 ambulatory Gretchen Nguyen NP Facility:[facility] Start: 03-05-2025 Patient encounter procedure Gretchen Nguyen PREVENTIVE MEDICINE PHYSICIAN-C -Pulmonary Services/Neurology Work Phone: Start: 03-05-2025 ambulatory Guillermoaprluis alberto [place] [facility] cility:[facility] Start: 02-19-2025 End: 02-19-2025 Patient encounter procedure Gretchen PRESSLEY -[facility] Work Phone: Start: 02-19-2025 End: 02-19-[address] Addi Mario MD Work Phone: [facility] Work Phone: Start: 02-14-2025 End: 02-14-[address] Addi Mario MD -[place] Work Phone: Start: 02-14-2025 End: 02-14-[address] Addi Mario MD Work Phone: [facility] Work Phone: Start: 02-14-2025 End: 02-14-2025 ambulatory [facility] Facility:[facility] Start: 01-14-2025 End: 01-14-2025 Patient encounter procedure Shawn Shea MD Work Phone: Ophthalmology Comment on above: 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, severe stage (Primary Dx) Start: 01-14-2025 End: 01-14-2025 ambulatory SHAWN SHEA Facility:[facility] Start: 01-02-2025 End: 01-02-[address] Addi Mario MD Work Phone: [facility] Work Phone: Start: 01-02-2025 End: 01-02-[address] Addi Mario MD -Radiology, [facility] Work Phone: Start: 01-02-2025 End: 01-02-2025 ambulatory [facility] Facility:[facility] Start: 12-31-2024 Encounter for antibo dy response examination [facility] Start: 12-27-2024 End: 12-27-[address] Addi Mario MD Work Phone: [facility] Work Phone: Start: 12-27-2024 End: 12-27-[address] Addi Mario MD -Laboratory, [facility] Start: 12-27-2024 End: 12-27-2024 ambulatory Addi Mario Facility:[facility] Start: 12-19-[address] Addi Mario MD Work Phone: [facility] Start: 12-14-2024 End: 12-14-2024 Patient encounter procedure Ailin Sharma NP- -[place] [facility] Work Phone: Start: 12-14-2024 End: 12-14-2024 ambulatory Ailin Sharma NP Facility:[facility] Start: 11-30-2024 End: 11-30-2024 ambulatory Addi Mario Facility:[facility] Start: 11-30-2024 End: 11-30-[address] Addi Mario MD -[facility] Work Phone: Start: 11-27-2024 End: 11-27-2024 Telephone encounter Alexis Green MD Work Phone: Ophthalmology Start: 11-26-2024 End: 11-26-2024 ambulatory [facility] Facility:[facility] Start: 11-26-2024 End: 11-26-2024 Patient encounter procedure Shawn Shea MD Work Phone: Ophthalmology Comment on above: 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, severe stage Start: 11-15-2024 End: 11-15-[address] Addi Mario MD -[facility] Work Phone: Start: 11-15-2024 End: 11-15-[address] Addi Mario MD Work Phone: [facility] Work Phone: Start: 11-15-2024 End: 11-15-2024 ambulatory Addi Mario Facility:[facility] Start: 10-23-2024 End: 10-23-2024 Patient encounter procedure Ava LUEVANO -[facility] Work Phone: Start: 10-23-2024 End: 10-23-2024 ambulatory Addi Mario Facility:[facility] Start: 10-03-2024 End: 10-03-2024 Telephone encounter Shawn Shea MD Work Phone: Ophthalmology Comment on above: follow up from 08/08 25 Start: 08-15-2024 End: 08-15-[address] Addi Mario MD -[facility] Work Phone: Start: 08-15-2024 End: 08-15-2024 ambulatory Arlethjimlilil Joocarissamaria del carmen Facility:[facility] Start: 08-14-2024 End: 08-15-2024 ambulatory MANUEL LOGAN Facility:[facility] Start: 08-14-2024 End: 08-14-2024 Patient encounter procedure Priya Saleh OD Work Phone: Ophthalmology Comment on above: Redness of both eyes (Primary Dx); Primary open angle glaucoma (POAG) of both eyes, severe stage; Squamous blepharitis of upper and lower eyelids of both eyes; Epiretinal membrane (ERM) of left eye; Band keratopathy, bilateral Start: 08-09-2024 End: 08-09-2024 Patient encounter procedure Souleymane LUEVANO -[facility] Work Phone: Start: 08-09-2024 End: 08-09-2024 ambulatory Souleymane LUEVANO Facility:[facility] Start: 07-30-2024 End: 07-30-2024 ambulatory MANUEL LOGAN Facility:[facility] Start: 07-30-2024 End: 07-30-2024 Patient encounter procedure Shawn Shea MD Work Phone: Ophthalmology Comment on above: 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, severe stage Start: 06-14-2024 End: 06-14-2024 ambulatory Addi Mario Facility:[facility] Start: 05-16-2024 End: 05-16-2024 ambulatory [facility] Facility:[facility] Start: 05-16-2024 End: 05-16-2024 [facility] Facility[facility] Start: 05-15-2024 End: 05-15-2024 Telephone encounter Shawn Shea MD Work Phone: Ophthalmology Comment on above: Follow Up Start: 04-30-2024 ambulatory Ailin Sharma PREVENTIVE MEDICINE PHYSICIAN Fac ility:[facility] Start: 04-26-2024 End: 04-26-2024 ambulatory Ailin Sharma PREVENTIVE MEDICINE PHYSICIAN Facility:[facility] Start: 04-24-2024 End: 04-24-2024 ambulatory Ailin Sharma PREVENTIVE MEDICINE PHYSICIAN Facility:[facility] Start: 04-21-2024 End: 04-21-2024 ambulatory Ava LUEVANO Facility:[facility] Start: 04-19-2024 End: 04-19-2024 ambulatory [facility] Facility:[facility] Start: 04-17-2024 End: 04-17-2024 ambulatory Dash Schmidt Facility:[facility] Start: 03-14-2024 Telephone encounter Lucina CUENCA W Ophthalmology Comment on above: Consult to [facility] Start: 03-12-2024 End: 03-12-2024 ambulatory MANUEL LOGAN Facility:[facility] Start: 03-12-2024 End: 03-12-2024 Patient encounter procedure Shawn Shea MD Work Phone: Ophthalmology Comment on above: 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 Addi Mario Work Phone: [facility] Work Phone: Start: 12-21-2023 End: 12-21-2023 Admission to same day surgery center Dr. Addi Mario Work Phone: [facility]-Surgical Day Care Start: 12-21-2023 End: 12-21-[address] Addi Mario Work Phone: [facility] Work Phone: Start: 12-08-2023 End: 01-01-2024 Evaluation and management of inpatient Dr. Addi Mario Work Phone: [facility]-Transitional Care Unit Start: 12-08-2023 Non-patient / Non-visit Dr. Addi Mario Work Phone: [facility] Physicians Work Phone: Start: 12-07-2023 Non-patient / Non-visit Dr. Addi Mario Work Phone: [facility] Work Phone: Start: 12-06-2023 Non-patient / Non-visit Dr. Addi Mario Work Phone: [facility] Work Phone: Start: 12-06-2023 Non-patient / Non-visit Dr. Addi Mario Work Phone: [facility] Start: 12-05-2023 Non-patient / Non-visit Dr. Addi Mario Work Phone: [facility] Work Phone: Start: 12-05-2023 Non-patient / Non-visit Dr. Addi Mario Work Phone: [facility] Start: 12-04-2023 Non-patient / Non-visit Dr. Addi Mario Work Phone: [facility] Work Phone: Start: 12-03-2023 Non-patient / Non-visit Dr. Addi Mario Work Phone: [facility] Work Phone: Start: 12-03-2023 Non-patient / Non-visit Dr. Addi Mario Work Phone: [facility] Start: 12-02-2023 Non-patient / Non-visit Dr. Addi Mario Work Phone: [facility] Work Phone: Start: 12-02-2023 End: 12-08-2023 Evaluation and management of inpatient Dr. 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 Addi Mario Work Phone: [facility] Work Phone: Start: 10-17-2023 End: 10-17-[address] Addi Mario Work Phone: [facility]-Pulmonary Services/Neurology Work Phone: Start: 09-02-2023 Telephone encounter Shawn Shea MD Work Phone: Ophthalmology Start: 08-15-2023 End: 08-15-[address] Addi Mario Work Phone: [facility] Internal Medicine Work Phone: Start: 07-04-2023 End: [...] 04-30-[address] Addi Mario Work Phone: [facility] Work Phone: Start: 04-30-2023 End: 04-30-[address] Addi Mario Work Phone: [facility], [facility] Work Phone: Start: 04-28-2023 End: 04-28-[address] Addi Mario Work Phone: [facility] Internal Medicine Work Phone: Start: 04-22-2023 End: 04-22-2023 Emergency department [facility] Start: 04-12-2023 End: 04-12-[address] Addi Mario Work Phone: [facility] Work Phone: Start: 03-25-2023 End: 03-25-2023 Emergency department patient [facility] Start: 03-24-2023 End: 03-24-[address] Addi Mario Work Phone: [facility] Internal Medicine Work Phone: Start: 03-23-2023 End: 03-23-[address] Addi Mario Work Phone: [facility]-Laboratory, [facility] Start: 03-21-2023 End: 03-21-2023 Emergency department patient visit Dr. Addi Mario Work Phone: [facility]-Emergency Department Work Phone: Start: 03-12-2023 End: 03-12-2023 Emergency department patient visit Dr. Addi Mario Work Phone: [facility]-Emergency Department Start: 01-24-2023 End: 01-24-[address] Addi Mario Work Phone: [facility] Start: 01-22-2023 End: 01-22-2023 Emergency department patient visit Dr. Addi Mario Work Phone: [facility]-Emergency Department Start: 12-29-2022 End: 12-29-[address] Addi Mario Work Phone: [facility] Internal Medicine Start: 11-03-2022 End: 11-03-[address] [facility] Start: 10-14-2022 Non-patient / Non-visit Dr. Addi Mario Work Phone: [facility] Start: 10-14-2022 End: 10-14-[address] Addi Mario Work Phone: [facility] Work Phone: Start: 10-14-2022 End: 10-14-[address] [facility] Start: 10-05-2022 End: 10-05-[address] Addi Mario Work Phone: [facility] Start: 09-08-2022 End: 09-08-[address] [facility] Start: 09-08-2022 End: 09-08-[address] Addi Mario Work Phone: [facility] Internal Medicine Start: 09-04-2022 End: 09-04-[address] Addi Mario Work Phone: [facility] Work Phone: Start: 09-04-2022 End: 09-04-[address] [facility] Start: 08-27-2022 End: 08-27-[address] Addi Mario Work Phone: [facility] Internal Medicine Start: 08-24-2022 End: 08-24-2022 Emergency department patient visit Dr. Addi Mario Work Phone: [facility]-Emergency Department Start: 08-04-2022 End: 08-04-[address] Addi Mario Work Phone: [facility] Work Phone: Start: 08-04-2022 End: 08-04-[address] [facility] Start: 08-04-2022 End: 08-04-[address] Addi Mario Work Phone: [facility] Internal Medicine Start: 07-10-2022 Ivanna rodriguez MD Work Phone: [facility] Cardiology Comment on above: Refill Request Start: 05-06-2022 End: 05-06-[address] Add[facility] Start: 12-11-2021 End: 12-11-2021 Patient encounter procedure Dr. Addi Mario Work Phone: [facility]-Pulmonary Services/Neurology Start: 12-03-2021 End: 12-03-[address] Addi Mario Work Phone: [facility]-Laboratory Start: 12-03-2021 End: 12-03-[address] Addi Mario Work Phone: [facility] Start: 11-30-2021 End: 11-30-[address] Addi Mario Work Phone: [facility] Start: 11-12-2021 End: 11-12-[address] [facility] Start: 11-11-2021 End: 11-11-[address] Addi Mario Work Phone: [facility] Internal Medicine Start: 10-15-2021 End: 10-15-[address] Addi Mario Work Phone: [facility] Internal Medicine Start: 09-23-2021 End: 09-23-[address] Add[facility] Start: 08-18-2021 End: 08-18-[address] Addi Mario Work Phone: [facility] Start: 08-17-2021 Non-patient / Non-visit Dr. Addi Mario Work Phone: [facility] Start: 08-17-[address] Addi Mario Work Phone: [facility]-Cardiovascular Services Start: 12-22-2014 Patient encounter procedure Tristan Montana MD Work Phone: [facility] Procedures Date Procedure Procedure Detail Performing Clinician Start: 03-10-2025 X-ray of foot, three or more views Dr. Addi Mario MD Work Phone: Start: 01-02-[address] Thiago Mario MD Work Phone: Start: 11-26-2024 Computerized ophthal jacoby imaging optic nerve Shawn Shea MD Work Phone: Start: 11-15-2024 Total iron binding capacity measurement Dr. Addi Mario MD Work Phone: Start: 07-30-2024 Visual field xm uni/ bi w/interp extended exam Shawn Shea MD Work Phone: Start: 03-14-2024 CONSULT TO [facility] [employer] [facility] Shawn Shea MD Work Phone: Start: 03-12-2024 Computerized ophthal jacoby imaging optic nerve Shawn Shea MD Work Phone: Start: 12-21-2023 Fluoroscopic guidance Ashia Mario Work Phone: Start: 12-10-[address] [...] DTaP,Tdap,Td Vaccine (2 - Td or Tdap) [facility] Start: 01-29-2026 End: 07-08-2026 OCT OPTIC NERVE CIRRUS OU (BOTH EYES) OCT OPTIC NERVE CIRRUS OU (BOTH EYES) [facility] Routine Primary open angle glaucoma (POAG) of both eyes, severe stage Expected: 01/29/2026, Expires: 07/08/2026 [facility] Work Phone: Comment on above: Expected: 01/29/2026, Expires: 6 Start: 12-11-2025 End: 05-20-2026 OCT OPTIC NERVE CIRRUS OU (BOTH EYES) OCT OPTIC NERVE CIRRUS OU (BOTH EYES) [facility] Imaging Routine Primary open angle glaucoma (POAG) of both eyes, severe stage Expected: 12/11/2025, Expires: 05/20/2026 [facility] Work Phone: Comment on above: Expected: 12/11/2025, Expires: 6 Start: 08-14-2025 End: 01-21-2026 OCT OPTIC NERVE CIRRUS OU (BOTH EYES) OCT OPTIC NERVE CIRRUS OU (BOTH EYES) [facility] Routine Primary open angle glaucoma (POAG) of both eyes, severe stage Expected: 08/14/2025, Expires: 01/21/2026 [facility] Work Phone: Comment on above: Expected: [...] eyes, severe stage Expected: 03/27/2025, Expires: 09/03/2025 [facility] Work Phone: Comment on above: Expected: 03/27/2025, Expires: Start: 03-10-2025 [facility] Start: 02-19-2025 Evaluation of diagnostic study results [facility] Start: 02-14-2025 CBC W Auto Differential panel - Blood [facility] Start: 02-14-2025 Comprehensive metabolic 2000 panel - Serum or Plasma [facility] Start: 02-14-2025 Magnesium measurement [facility] Start: 02-14-2025 T4 free measurement [facility] Start: 02-14-2025 Thyroid stimulating hormone measurement [facility] Start: 12-23-2024 Covid-19 Vaccine ( season) Covid-19 Vaccine () [facility] Start: 11-26-2024 End: 11-26-2024 Patient encounter procedure 11/26/2024 2:00 PM EDT Office Visit [facility] [address] [place] [address] Shawn Shea MD [address] [place] [address] Return in about 4 months (around 11/27/2024) for OCT OU. Ophthalmology Comment on above: Return in about 4 months (around 11/28/19) for OCT OU. Start: 11-21-2024 End: 04-30-2025 OCT OPTIC NERVE CIRRUS OU (BOTH EYES) OCT OPTIC NERVE CIRRUS OU (BOTH EYES) [facility] Imaging Routine Primary open angle glaucoma (POAG) of both eyes, severe stage Expected: 11/21/2024, Expires: 04/30/2025 [facility] Work Phone: Comment on above: Expected: 11/21/2024, Expires: Start: 09-24-2024 End: 09-24-2024 Patient encounter procedure 09/24/2024 1:30 PM EST Office Visit [facility] [address] [place] [address] Shawn Shea MD [address] [place] [address] Return in about 6 months (around 09/11/2024) for VF . Ophthalmology Comment on above: Return in about 6 months (around 024) for VF . Start: 09-19-2024 Advance Directive Discussion Advance Directive Discussion [facility] Start: 07-30-2024 End: 07-30-2024 Patient encounter procedure 07/30/2024 2:00 PM EST Office Visit [facility] [address] [place] [address] Shawn Shea MD [address] [place] [address] Return in about 6 months (around 05/07/2024) for OCT OU. Ophthalmology Comment on above: Return in about 6 months (around 05/07/20) for OCT OU. Start: 06-15-2024 End: 11-22-2024 PACHYMETRY OU (BOTH EYES) PACHYMETRY OU (BOTH EYES) [facility] Routine Primary open angle glaucoma (POAG) of both eyes, severe stage Expected: 06/15/2024, Expires: 11/22/2024 [facility] Work Phone: Comment on above: Expected: 06/15/2024, Expires: Start: 06-15-2024 End: 11-22-2024 VISUAL FIELD 24-2 OU (BOTH EYES) VISUAL FIELD 24-2 OU (BOTH EYES) [facility] Routine Primary open angle glaucoma (POAG) of both eyes, severe stage Expected: 06/15/2024, Expires: 11/22/2024 [facility] Work Phone: Comment on above: Expected: 06/15/2024, Expires: Start: 05-20-2024 Influenza vaccination Influenza Vaccine (#1) [facility] Start: 05-07-2024 End: 05-07-2024 Patient encounter procedure 05/07/2024 2:00 PM EDT Office Visit [facility] [address] [place] [address] Shawn Shea MD [address] [place] [address] Return in about 6 months (around 05/07/2024) for OCT OU. Ophthalmology Comment on above: Return in about 6 months (around 05/07/20) for OCT OU. Start: 03-12-2024 End: 03-12-2024 Patient encounter procedure 03/12/2024 1:45 PM EDT Office Visit [facility] [address] [place] [address] Shawn Shea MD [address] [place] [address] date 03/12 Ophthalmology Comment on above: date 03/12 Start: 01-01-2024 Patient discharge [facility] Start: 12-30-2023 Blood chemistry [facility] Start: 12-22-2023 Referral to service [facility] Start: 12-21-2023 Patient discharge [facility] Start: 12-21-2023 Ambulation without limitation [facility] Start: 12-21-2023 Medication education [facility] Start: 12-21-2023 Taking patient vital signs [facility] Start: 12-21-2023 [facility] Start: 12-21-2023 Anes transurethral w/urethrocystoscopy nos ANESTH BLADDER SURGERY [facility] Start: 12-21-2023 Cysto w/ureteroscopy w/lithotripsy CYSTOURETERO W/LITHOTRIPSY [facility] Start: 12-15-2023 Speech therapy management [facility] Start: 12-15-2023 Speech therapy assessment [facility] Start: 12-09-2023 Development of care plan [facility] Start: 12-09-2023 Developing a treatment plan [facility] Start: 12-09-2023 [facility] Start: 12-08-2023 Verification routine [facility] Start: 12-08-2023 Following clinical pathway protocol [facility] Start: 12-08-2023 Admission procedure [facility] Start: 12-08-2023 Measuring intake and output [facility] Start: 12-08-2023 Patient referral to dietitian [facility] Start: 12-08-2023 Referral to occupational therapist [facility] Start: 12-08-2023 Referral to service [facility] Start: 12-08-2023 Vital signs measurements [facility] Start: 12-08-2023 [facility] Start: 12-08-2023 Patient discharge [facility] Start: 12-06-2023 Consultation [facility] Start: 12-06-2023 Patient referral [facility] Work Phone: Start: 12-05-2023 Notification of physician [facility] Start: 12-05-2023 Patient education [facility] Start: 12-05-2023 Provision of activity privileges [facility] Start: 12-05-2023 Pulse taking [facility] Start: 12-05-2023 Taking patient vital signs [facility] Start: 12-05-2023 Wound care [facility] Start: 12-05-2023 [facility] Start: 12-04-2023 Application of intermittent pneumatic compression device [facility] Start: 12-03-2023 Referral to occupational therapist [facility] Start: 12-03-2023 Referral to service [facility] Start: 12-03-2023 Inhalation therapy procedure [facility] Start: 12-02-2023 Following clinical pathway protocol [facility] Start: 12-02-2023 Ambulation without limitation [facility] Start: 12-02-2023 Assessment of risk of venous thromboembolism [facility] Start: 12-02-2023 Insertion of catheter into peripheral vein [facility] Start: 12-02-2023 Measuring intake and output [facility] Start: 12-02-2023 Providing care according to standard [facility] Start: 12-02-2023 Referral to police specialist [facility] Start: 12-02-2023 Referral to service [facility] Start: 12-02-2023 [facility] Start: 12-02-2023 Admission procedure [facility] Start: 12-02-2023 Hospital admission, emergency, from emergency room, medical nature [facility] Start: 12-02-2023 Troponin I measurement [facility] Start: 12-02-2023 [facility] Start: 12-02-2023 Bacteria identified in Blood by Culture Blood Culture [facility] Start: 12-02-2023 Bacteria identified in Urine by Culture [facility] Start: 12-02-2023 End: 12-02-2023 Blood culture [facility] Start: 12-02-2023 [facility] Start: 11-29-2023 Covid-19 Vaccine ( season) Covid-19 Vaccine () [facility] Start: 09-19-2023 Advance Directive Discussion Advance Directive Discussion [facility] Start: 09-19-2023 Behavioral Health Screening Behavioral Health Screening [facility] Start: 09-19-2023 Depression Assessment Depression Assessment [facility] Start: 05-20-2023 Covid-19 Vaccine ( season) Covid-19 Vaccine () [facility] Start: 05-20-2023 Influenza vaccination Influenza Vaccine (#1) [facility] Start: 04-22-2023 [facility] Start: 03-25-2023 Control nasal hemorrhage anterior simple CONTROL OF NOSEBLEED [facility] Start: 10-17-2022 Covid-19 Vaccine (6 - Moderna series) Covid-19 Vaccine (6 - Moderna series) [facility] Start: 09-19-2022 Advance Directive Discussion Advance Directive Discussion [facility] Start: 09-19-2022 Depression Assessment Depression Assessment [facility] Start: 05-20-2022 Influenza vaccination INFLUENZA (#1) [facility] Start: 09-19-2021 ADVANCE DIRECTIVE DISCUSSION ADVANCE DIRECTIVE DISCUSSION [facility] Start: 09-19-2021 DEPRESSION ASSESSMENT DEPRESSION ASSESSMENT [facility] Start: 09-22-2019 SHINGRIX VACCINE (3 of 3) SHINGRIX VACCINE (3 of 3) [facility] Start: 03-11-2019 DIABETES SCREEN DIABETES SCREEN [facility] Start: 03-11-2019 Diabetes Screening Diabetes Screening [facility] Start: 11-09-2017 Hepatitis B surface antibody level LDL Cholesterol [facility] Start: 05-25-2007 Urine microalbumin profile [facility] Start: 1997 Hepatitis B Vaccine (1 of 3 - Risk 3-dose series) Hepatitis B Vaccine (1 of 3 - Risk 3-dose series) [facility] Start: 02-21-1956 Hepatitis A Vaccine (1 of 2 - Risk 2-dose series) Hepatitis A Vaccine (1 of 2 - Risk 2-dose series) [facility] Start: 1955 Anxiety Screening Anxiety Screening [facility] Start: 1955 Depression Screening Depression Screening [facility] Start: 1955 Spirometry Spirometry [facility] Start: 1937 COVID-19 VACCINE (#1) COVID-19 VACCINE (#1) [facility] Alanine aminotransfe rase [Enzymatic activity/volume] in Serum or Plasma [facility] Albumin [Mass/volume ] in Serum or Plasma [facility] Alkaline phosphatase [Enzymatic activity/volume] in Serum or Plasma [facility] Ambulatory ECG [facility] Anion gap in Serum o r Plasma [facility] Anion gap measurement [facility] Bilirubin, total measurement [facility] Blood chemistry [facility] BUN/Creatinine ratio [facility] BUN/Creatinine ratio [facility] Calcium [Mass/volume ] in Serum or Plasma [facility] Calcium [Mass/volume ] in Serum or Plasma [facility] Carbon dioxide, tota l [Moles/volume] in Central venous blood [facility] Carbon dioxide, tota l [Moles/volume] in Serum or Plasma [facility] CBC W Auto Different ial panel - Blood [facility] Work Phone: Chloride [Moles/volu me] in Serum or Plasma [facility] Complete blood count [facility] Creatinine [Mass/vol ume] in Serum or Plasma [facility] Creatinine [Moles/vo lume] in Serum or Plasma [facility] Erythrocyte mean corpuscular volume determination [facility] Erythrocyte mean corpuscular volume determination [facility] Folate [Mass/volume] in Serum or Plasma [facility] Work Phone: Glucose [Mass/volume ] in Serum or Plasma [facility] Glucose [Mass/volume ] in Serum or Plasma [facility] Hematocrit [Volume Fraction] of Blood [facility] Hematocrit [Volume Fraction] of Blood [facility] Hemoglobin [Mass/vol ume] in Blood [facility] Hemoglobin [Mass/vol ume] in Blood [facility] Leukocytes [#/volume ] in Blood [facility] Leukocytes [#/volume ] in Blood [facility] Mean corpuscular hemoglobin concentration determination [facility] Mean corpuscular hemoglobin concentration determination [facility] Mean corpuscular hemoglobin determination [facility] Mean corpuscular hemoglobin determination [facility] Measurement of renal function [facility] Measurement of renal function [facility] Neutrophil count [facility] Neutrophil count [facility] Neutrophil percent differential count [facility] Neutrophil percent differential count [facility] Patient Education [facility] Work Phone: Patient referral [facility] Work Phone: Platelets [#/volume] in Blood [facility] Platelets [#/volume] in Blood [facility] Potassium [Moles/vol ume] in Serum or Plasma [facility] Potassium measurement [facility] Red blood cell count [facility] Red blood cell count [facility] Red cell distributio n width determination [facility] Red cell distributio n width determination [facility] Serum chloride measurement [facility] Sodium [Moles/volume ] in Serum or Plasma [facility] Sodium measurement [facility] Total protein measurement [facility] Urea nitrogen [Mass/volume] in Serum or Plasma [facility] Urea nitrogen [Mass/volume] in Serum or Plasma [facility] Vitamin B12 measurement [facility] Work Phone: Vitamin B12 measurement [facility] Immunizations Immunization Date Immunization Notes Care Provider [facility] 06-14-2024 Seasonal trivalent influenza vaccine, adjuvanted, preservative free Dr. Addi Mario MD Work Phone: [facility] 12-13-2023 Covid (Spikevax) Dr. Audrey Mario Work Phone: [facility] 07-31-2023 Covid (Spikevax) Dr. Audrey Mario Work Phone: [facility] 07-31-2023 Pneumococcal Vaccine PCV20 (Prevnar 20) Dr. Addi Mario Work Phone: [facility] 06-26-2023 influenza, injectabl e, quadrivalent, preservative free Dr. Addi Mario Work Phone: [facility] 06-26-2023 influenza virus vaccine, unspecified formulation Shawn Shea MD Work Phone: [facility] 05-25-2022 influenza virus vaccine, unspecified formulation Shawn Shea MD Work Phone: [facility] 07-26-2021 Covid (Moderna) Dr. Lacho Mario Work Phone: [facility] 06-23-[address] Addi Mario Work Phone: [facility] 11-26-2020 Covid (Moderna) Dr. Lacho Mario Work Phone: [facility] 10-24-2020 Covid (Moderna) Dr. Lacho Mario Work Phone: [facility] 06-06-2020 tetanus toxoid, redu korin diphtheria toxoid, and acellular pertussis vaccine, adsorbed Dr. Addi Mario Work Phone: [facility] 05-27-[address] Addi Mario Work Phone: [facility] 07-28-2019 zoster vaccine recombinant Tristan Montana MD Work Phone: [facility] 07-13-2016 influenza, high dose seasonal, preservative-free Tristan Montana MD Work Phone: [facility] 06-10-2015 influenza, high dose seasonal, preservative-free Tristan Montana MD Work Phone: [facility] 09-27-2014 pneumococcal conjuga te vaccine, 13 valent Tristan Montana MD Work Phone: [facility] 07-24-2014 influenza, seasonal, injectable Tristan Montana MD Work Phone: [facility] 06-13-2013 influenza virus vaccine, unspecified formulation Tristan Montana MD Work Phone: [facility] 06-13-2012 influenza virus vaccine, unspecified formulation Tristan Montana MD Work Phone: [facility] 07-21-2010 zoster vaccine, live Maria Guadalupe Montana MD Work Phone: [facility] 08-23-2007 pneumococcal polysaccharide vaccine, 23 valent Tristan Montana MD Work Phone: [facility] 05-24-2007 tetanus and diphther ia toxoids, adsorbed, preservative free, for adult use (2 Lf of tetanus toxoid and 2 Lf of diphtheria toxoid) Tristan Montana MD Work Phone: [facility] 09-19-2001 pneumococcal polysaccharide vaccine, 23 valent Tristan Montana MD Work Phone: [facility] Payers Date Payer Category Payer Self-pay [id number] 2014 Medicare (Managed Care) PRIMETIM E [id number] 2014 Unknown PRIMETIME PRIMET ZACH HMO POS [id number] 2014-Present [phone] [address] [place] [address] HMO [id number] 2014 Unknown [id number] Unknown [id number] 2.16840.1.294937.3.579. 2.462 Unknown [id number] 2.16840.1.645549.3.579. 2.462 Unknown [id number] 2.16840.1.693242.3.579. 2.462 Unknown [id number] 2.16840.1.530588.3.579. 2.462 Unknown [id number] 2.16840.1.398460.3.579. 2.462 Unknown [id number] 2.16840.1.095819.3.579. 2.462 Unknown [id number] 2.16840.1.486217.3.579. 2.462 Unknown [id number] 2.16840.1.975771.3.579. 2.462 Unknown [id number] 2.16840.1.084410.3.579. 2.462 Unknown [id number] 2.16840.1.906435.3.579. 2.462 Unknown [id number] 2.16840.1.978421.3.579. 2.462 Unknown [id number] 2.16840.1.913081.3.579. 2.462 Unknown [id number] 2.16.840.1.263021.3.579. 2.462 Unknown [id number] 2.16.840.1.799030.3.579. 2.462 Unknown [id number] 2.16.840.1.202751.3.579. 2.462 Unknown [id number] 2.16.840.1.807329.3.579. 2.462 Unknown [id number] 2.16840.1.207698.3.579. 2.462 Unknown [id number] 2.16840.1.182257.3.579. 2.462 Unknown [id number] 2.16840.1.070734.3.579. 2.462 Unknown [id number] 2.16840.1.286044.3.579. 2.462 Unknown [id number] 2.840.1.198281.3.579. 2.462 Unknown [id number] 2.16840.1.823205.3.579. 2.462 Unknown [id number] 2.16840.1.158020.3.579. 2.462 Unknown [id number] 2.16840.1.395615.3.579. 2.462 Unknown [id number] 2.16840.1.438466.3.579. 2.462 Unknown [id number] 2.840.1.419395.3.579. 2.462 Unknown [id number] 2.840.1.473226.3.579. 2.462 Unknown [id number] 2.840.1.364511.3.579. 2.462 Unknown [id number] 2.840.1.353049.3.579. 2.462 Social History Date Type Detail Facility Start: 12-03-2021 End: 12-27-2023 Tobacco smoking status WAIS Unknown if ever smoked [facility] Start: 02-12-2021 None [facility] Start: 06-11-2020 Spouse/ Signif icant Other [facility] Start: 02-12-2021 Non-smoker [facility] Start: 1935 Sex Assigned At Male W [facility] Start: 11-02-2016 End: 03-10-2025 Tobacco smoking status NHIS Never smoked tobacco [facility] Work Phone: Start: 11-02-2016 Tobacco use and exposure Smokeless tobacco non-user [facility] Work Phone: Start: 11-22-2016 End: 01-14-2025 Alcohol intake Current drinker of alcohol (finding) [facility] Start: 11-02-2016 [facility] Start: 1935 Sex Assigned At Not on file [facility] Start: 06-01-2023 End: 05-07-2024 History of Social function [facility] Start: 06-01-2023 End: 05-07-2024 Tobacco use panel [facility] National Score (1-100), lower number is lower risk 67 [facility] Start: 11-29-2024 End: 01-07-2025 Sex Male (finding) [facility] Medical Equipment Procedure Code Equipment Code Equipment [...] Assessment Result Facility 01-01-2024 Functional status Ambulates [facility] Work Phone: 12-27-2023 Functional status Chair [facility] Work Phone: 12-08-2023 Functional status [facility] Work Phone: 04-22-2015 Are you deaf, or do you have serious difficulty hearing No 04/22/2015 11:41 AM Jason Tyson LPN [facility] 04-22-2015 Are you blind, or do you have serious difficulty seeing, even when wearing glasses No 04/22/2015 11:41 AM Jason Tyson LPN [facility] 04-22-2015 Do you have serious difficulty walking or climbing stairs No 04/22/2015 11:41 AM Jason Tyson LPN No [facility] 04-22-2015 Do you have difficul ty dressing or bathing No 04/22/2015 11:41 AM Jason Tyson LPN [facility] 04-22-2015 Because of a physica l, mental, or emotional condition, do you have difficulty doing errands alone such as visiting a physician's office or shopping No 04/22/2015 11:41 AM Jason Tyson LPN [facility] Mental Status Date Assessment Result Facility 01-01-2024 Cognitive function Voice/Name;Touch/Sharadames stoddard [facility] Work Phone: 12-26-2023 Cognitive function Voice/Name;Touch/Dulce Maria stoddard [facility] Work Phone: 12-22-2023 Cognitive function Appropriate;Coopernatividadtravis maria del carmen [facility] Work Phone: 12-21-2023 Cognitive function Voice/Name [facility] Work Phone: 12-08-2023 Cognitive function Voice/Name [facility] Work Phone: 12-02-2023 Cognitive function Level Of Cons ciousness Awake;Alert;Appropriate;Fol lows Commands [facility] Work Phone: 03-12-2023 Cognitive function Level Of Cons ciousness Awake;Alert;Appropriate;Fol lows Commands [facility] Work Phone: 04-22-2015 Because of a physica l, mental, or emotional condition, do you have serious difficulty concentrating, remembering, or making decisions No 04/22/2015 11:41 AM EDT Jason Grossman LPN No [facility] Clinical Notes 12-23-2015 to 03-10-2025 Note Date & Type Note Facility 03-10-2025 Discharge summary [facility] 03-10-2025 Radiology Diagnostic study note [facility] Imaging Services [address], [place] [address] Foot min 3 Views MR#: [id number] Acct: [id number] Name: JESSEE RUST Rep #: [id number] : 1935 M 89 From: Melody Younger MD PCP: Dr. Addi Mario MD Status: P RE ER Study:Foot min 3 Views Date of Exam: Exam# [id number] Ordering Dr: Marisol Meza PROCEDURE: FOOT MIN 3 VIEWS 03/10/2025 REASON FOR EXAM: PAIN TECHNIQUE: FOOT MIN 3 VIEWS COMPARISON: 10/15/2019 RAD/Foot min 3 Views IMPRESSION: Mild diffuse osteopenia. Scattered moderate degenerative changes predominantly about the intertarsal joint spaces. No acute fracture or dislocations. No radiographic foreign body. No acute softtissue abnormalities. Minimal diffuse soft tissue swelling. Consider dedicated ankle radiograph if there is concern for ankle pathology. Reading Location: [id number] CC: Dr. Addi Mario MD; BASSEM Soria ~ Head Sampler: Signed [facility] 03-10-2025 Discharge summary Note Date/Time March 10, 2025 5:19pm [facility] Medical Records Department [address] [place] [address] Emergency Department Summary 03/10/25 MR#: [id number] Acct: [id number] Name: JESSEE RUST Rep #:[id number] : 1935 89 From: Marisol LUEVANO PCP: Dr. Addi Mario MD Status:R EG ER Location: ED HPI <BASSEM Soria - Last Filed: 03/10/25 16:54> History of Present Illness Chief Complaint: Lower Extremity Injury Narrative Narrative: Patient resenting today with pain to his right foot after he was practicing balancing exercises Tuesday. He was standing on 1 foot while moving the oppositefoot [id number]. He is not of the exact mechanism of injury but reports that after performing these exercises he started to have pain in the right foot. He is able to ambulate but it is painful. He denies any other injury. [facility] <BASSEM Soria - Last Filed: 03/10/25 16:54> [facility] Medical History Bradycardia Immunity status testing Sore throat Exposure to COVID-19 virus Swallowing disorder Perianal dermatitis CHF (congestive heart failure) Ureteral calculi Cardiomyopathy Mitral regurgitation Rheumatoid arthritis Non-smoker Hypertension Atrial fibrillation Migraines Sepsis Non-STEMI (non-ST elevated myocardial infarction) Paroxysmal atrial fibrillation Extensor tenosynovitis of right wrist Advanced directives, counseling/discussion Anemia Left facial swelling Aortic stenosis New [...] Hyponatremia Thrombocytopenia Multiple fractures Fall Anginal equivalent Nonrheumatic aortic valve stenosis Psoriasis Osteoarthritis BPH (benign prostatic hyperplasia) Essential hypertension Atherosclerosis of coronary artery of [place] heart without angina pectoris Primary biliary cirrhosis Cholelithiasis without obstruction Hyperlipidemia Home Medications ?Medication ?Instructions ?Recorded ?Last Taken ?Type aspirin 81 mg tablet,delayed 81 mg PO DAILY@0800 [employer] 12/06/16 12/19/23 History release Held on 03/07/25. Instructions: Nosebleeds. cholecalciferol (vitamin D3) 50 50 mcg PO DAILY Supple ment 11/19/20 12/01/23 History mcg (2,000 unit) tablet Disability Placard #1 ea 12/01/21 Unknown Rx Arthritis Compound 1 click topical DAILY PRN Pa in #60 02/08/22 Unknown Rx CLICKS albuterol sulfate 90 mcg/actuation 2 puff inhalation Q 4H PRN Asthma 04/28/23 Unknown Rx aerosol inhaler (Ventolin HFA) #8.5 grams nebulizer and compressor (Portable #1 ea 04/30/23 Unkn own Rx Nebulizer System) kuhfytga-vfi-rtlis acid 0.4 1 tab PO DAILY supplement 12/02/23 12/01/23 History mg-lycopene 300 mcg-lutein 250 mcg tablet (Centrum Silver) netarsudil 0.02 %-latanoprost 1 drp ophthalmic (eye) Q HS Eye 12/02/23 12/02/23 History 0.005 % eye drops (Rocklatan) drops acetaminophen 500 mg tablet 1,000 mg (2 x 500 mg) PO Q 6H PRN 12/30/23 Unknown Rx PRN Pain Score 1-10 #0 tabs albuterol sulfate 2.5 mg/3 mL 2.5 mg (3 mL) inhalation Q4-6H PRN 01/04/24 Unknown Rx (0.083 %) solution for nebulization shortness of breat h or wheezing #90 mL hydrocortisone 2.5 % topical cream 1 applic CO BID-QID PRN 01/04/24 Unknown Rx with perineal applicator hemorrhoids #30 grams cetirizine 10 mg tablet 10 mg PO DAILY PRN 01/23/24 Unknown History sennosides 8.6 mg-docusate sodium 1 tab-cap PO QHS 03/12 Unknown History 50 mg tablet (Senokot-S) nitroglycerin 0.4 mg sublingual 0.4 mg sublingual Q5-1 5M PRN chest 05/01/24 Unknown Rx tablet pain #25 tabs finasteride 5 mg tablet 5 mg PO DAILY BPH #90 tabs 1 11/07/23 Unknown Rx famotidine 20 mg tablet 20 mg PO DAILY GERD #90 tabs 09/10/24 Unknown Rx atorvastatin 20 mg tablet 20 mg PO QHS cholesterol #90 tabs 10/22/24 Unknown Rx furosemide 20 mg tablet 20 mg PO QDAY #90 tabs 11/15 Unknown Rx potassium chloride 10 mEq 10 meq PO QDAY With Lasix #9 0 tabs 11/15/24 Unknown Rx tablet,extended release(part/cryst) brinzolamide 1 %-brimonidine 0.2 % 1 drp ophthalmic (e ye) 12/14/24 Unknown History eye drops,suspension (Simbrinza) budesonide-formoterol HFA 160 2 puff inhalation BID As thma #1 ea 12/14/24 Unknown Rx mcg-4.5 mcg/actuation aerosol inhaler (Symbicort) ferrous sulfate 325 mg (65 mg 325 mg PO QODAY Suppleme nt #90 tabs 02/05/25 Unknown Rx iron) tablet ursodiol 500 mg tablet 500 mg PO BID #180 tabs 01/18 06/13 Unknown Rx apixaban 5 mg tablet (Eliquis) 5 mg PO BID #60 tabs Unknown Rx Allergy/AdvReac Type Severity Reaction Status Date / Time metoprolol (From Lopressor) Allergy Intermediate Shortness Verified 03/10/25 16:06 of breath bee venom protein (honey Allergy Mild Swelling Verified 03/10/25 16:06 bee) (bee sting) Penicillins Allergy Rash Verified 03/10/25 16:06 Family History Father Hypertension Grandmother Hypertension Other Alcoholism Liver disease Surgical History History of coronary artery stent placement History of colon resection History of cataract extraction Presence of stent in coronary artery History of appendectomy History of partial colectomy (~2003) Social History household members: spouse Smoking Status: Never smoker alcohol intake: current alcohol intake frequency: holidays/special occasions only substance use type: does not use caffeine: No what type of physical activity do you participate in: weight training ROS <BASSEM Soria - Last Filed: 03/10/25 16:54> ROS ED Constitutional Constitutional ED: Denies chills or fever(s) Cardiovascular Cardiovascular: Denies chest pain Respiratory/Chest Respiratory/Chest: Denies dyspnea Gastrointestinal Gastrointestinal: Denies abdominal pain, nausea or vomiting Musculoskeletal Musculoskeletal: Reports arthralgias Integumentary Denies Abrasions Neurologic Neurologic: Denies paresthesias EXAM <BASSEM Soria - Last Filed: 03/10/25 16:54> Physical Exam Const Vital Signs: 03/10/25 16:06 03/10/25 17:13 Temperature 97.2 F L 97.9 F Temperature Source Temporal Pulse Rate 62 63 Respiratory Rate 16 16 Blood Pressure 128/76 H 128/76 H Blood Pressure Mean 93 93 Pulse Ox 99 97 Oxygen Delivery Method Room Air Positive well [...] Extremity normal to inspection and full ROM Extremity Narrative: Pain to palpation to the base of the fifth metatarsal, no overlying bruising. There is edema to the right foot in comparison with the left. No pain to the right lateral or medial malleolus, no proximal fibular tenderness. Right DP pulse 2+, good cap refill, sensation intact. Neuro moves all extremities, no focal motor deficits and no sensory deficits noted Sensorium / Orientation: awake and alert Psych mental status grossly normal and thought process normal Skin no rashes or lesions noted and no wounds <Dr. Rolan Peña DO - Last Filed: 03/10/25 17:19> Physical Exam Const Vital Signs: 03/10/25 16:06 03/10/25 17:13 Temperature 97.2 F L 97.9 F Temperature Source Temporal Pulse Rate 62 63 Respiratory Rate 16 16 Blood Pressure 128/76 H 128/76 H Blood Pressure Mean 93 93 Pulse Ox 99 97 Oxygen Delivery Method Room Air [facility] <BASSEM Soria - Last Filed: 03/10/25 16:54> [facility] Narrative Medical decision making narrative: Patient presenting today with right foot pain and swelling that has been ongoingsince Tuesday after he was performing 1 leg balancing exercises Tuesday. He has point tenderness to the base of the fifth metatarsal, x-ray of the foot will be obtained to assess for fracture. He is otherwise neurovascularly intact, no signs of infection on exam. I did offer analgesia and he declined. X-ray is negative for fracture, he has diffuse osteopenia and soft tissue swelling. He will be given a postop shoe. Recommended he follow-up with his PCP in 1 week ifno improvement of his pain. RICE instructions discussed. He will be dischargedhome in stable condition. Radiography Diagnostic Testing: Clinical Impression(s) from Imaging Studies Foot X-Ray 03/10/25 16:25 IMPRESSION: Mild diffuse osteopenia. Scattered moderate degenerative changes predominantly about the intertarsal joint spaces. No acute fracture or dislocations. No radiographic foreign body. No acute softtissue abnormalities. Minimal diffuse soft tissue swelling. Consider dedicated ankle radiograph if there is concern for ankle pathology. Reading Location: [facility] <Dr. Rolan Peña DO - Last Filed: 03/10/25 17:19> [facility] Radiography Diagnostic Testing: Clinical Impression(s) from Imaging Studies Foot X-Ray 03/10/25 16:25 IMPRESSION: Mild diffuse osteopenia. Scattered moderate degenerative changes predominantly about the intertarsal joint spaces. No acute fracture or dislocations. No radiographic foreign body. No acute softtissue abnormalities. Minimal diffuse soft tissue swelling. Consider dedicated ankle radiograph if there is concern for ankle pathology. Reading Location: [facility] Treatment and Re-Evaluation Narrative: Attending note: I have personally performed a face to face assessment of the patient and have reviewed the RADHA note. I personally made/approved the management plan and take responsibility for the patient management. I performeda substantive portion of the visit including all aspects of the following. My villalobos findings include: Pain right foot after doing balance exercises 2 days ago. He is done this before. No direct falls or injuries. Using Tylenol. No other injuries. Exam tenderness proximal fifth base of right foot. No deformity skinintact. Forced inversion of the foot did not worsen the pain. Three-view x-rayright foot interpreted myself and read by radiology negative for fractures patient placed in a postop shoe. He will continue Tylenol. He will avoid. Hisbalance exercise at this time until symptoms improved. All questions were answered. Discharge Plan Triage Chief Complaint: Lower Extremity Injury ED Midlevel Provider: Marisol Crum ED Provider: Rolan Peña Dx/Rx/DC Orders Clinical Impression: Right foot pain, Injury of foot, right Instructions: ED RICE Prescriptions: No Action cholecalciferol (vitamin D3) 50 mcg (2,000 unit) tablet 50 mcg PO DAILY albuterol sulfate [Ventolin HFA] 90 mcg/actuation HFA aerosol inhaler 2 puff INHALATION Q4H PRN (Reason: Asthma) Qty: 8.5 2RF cetirizine 10 mg tablet 10 mg PO DAILY PRN sennosides-docusate sodium [Senokot-S] 8.6-50 mg tablet 1 tab-cap PO QHS albuterol sulfate 2.5 mg /3 mL (0.083 %) solution for nebulization 2.5 mg inhalation Q4-6H PRN (Reason: shortness of breath or wheezing) Qty: 903RF hydrocortisone 2.5 % cream with perineal applicator 1 applic CO BID-QID PRN (Reason: hemorrhoids) Qty: 30 1RF Simbrinza 1-0.2 % drops,suspension 1 drp ophthalmic (eye) budesonide-formoterol [Symbicort] 160-4.5 mcg/actuation HFA aerosol inhaler 2 puff inhalation BID Qty: 1 11RF Rx Instructions: administer with spacer, rinse mouth after each use furosemide 20 mg tablet 20 mg PO QDAY Qty: 90 3RF potassium chloride 10 mEq tablet,ER particles/crystals 10 meq PO QDAY Qty: 90 3RF ursodiol 500 mg tablet 500 mg PO BID Qty: 180 1RF aspirin 81 MG tablet 81 mg PO DAILY@0800 Centrum Silver 0.4 mg-300 mcg- 250 mcg tablet 1 tab PO DAILY Rocklatan 0.02-0.005 % drops 1 drp ophthalmic (eye) QHS Rx Instructions: INSTILL 1 DROP INTO EACH EYE AT BEDTIME acetaminophen 500 mg Tablet 1,000 mg PO Q6H PRN PRN (Reason: Pain Score 1-10) Qty: 0 0RF (DME) Disability Placard See Rx Instructions .Route .MEDSUPPLY Qty: 1 0RF Rx Instructions: Expires 12/01/2026 Arthritis Compound 1 click TOPICAL DAILY PRN (Reason: Pain) Qty: 60 1RF Rx Instructions: Diclofenac 3%, Lidocaine 3%, Baclofen 2% 1 click=o.25g 1 click topical daily 60 click tube (DME) nebulizer and compressor [Portable Nebulizer System] Device See Rx Instructions .Route Qty: 1 0RF Rx Instructions: As directed nitroglycerin 0.4 mg tablet, sublingual 0.4 mg SUBLINGUAL Q5-15M PRN (Reason: chest pain) Qty: 25 3RF finasteride 5 mg tablet 5 mg PO DAILY Qty: 90 3RF famotidine 20 mg tablet 20 mg PO DAILY Qty: 90 3RF atorvastatin 20 mg tablet 20 mg PO QHS Qty: 90 3RF ferrous sulfate 325 mg (65 mg iron) tablet 325 mg PO QODAY Qty: 90 2RF Eliquis 5 mg tablet 5 mg PO BID Qty: 60 11RF Primary Care Provider: Addi Mario Referrals: Addi Mario MD [Primary Care Provider] - 1 Week Activity Restrictions/Additional Instructions: Follow-up with your PCP in 1 week if no improvement of your pain, ice the area, elevate to help with swelling, return for any other concerns. Take Tylenol as needed for your pain. Print Language: Citizen Of [place] Disposition Disposition: Home, Self Care What to do if you have Problems For any increased pain, shortness of breath, bleeding, nausea or vomiting, chestpain, or any unexpected problems, contact your Primary Care Provider. Call [facility] ([phone]) or report to the closest Emergency Room. Call 911 if necessary. 03/10/25 1654 <Electronically signed by Marisol LUEVANO> Cosigner Signature (if applicable): 03/10/25 1719 <Electronically signed by Rolan Rubio> CC: Dr. Addi Mario MD ~ Signed [facility] Work Phone: [phone]) 453-920404-28-2025 Instructions* Patient Instructions* Shawn Shea MD - 01/14/2025 3:00 PM EDT You will be dilated on your next visit. This will likely make your vision blurry for several hours, and you should strongly consider bringing a local driver. [facility] History of Present illness Narrative* Shawn Shea MD - 01/14/2025 2:30 PM EDT New from [place] Tmax: <22; Pachy: -, - Lasers and Surgeries: OD: CEIOL OS: 11/2022 Selected laser trabeculoplasty (SLT) Selected laser trabeculoplasty (SLT) previous yrs CEIOL Ocular Medication Intol and Non-efficacy: Bradycardia = BB Now on simbrinza /, rocklatan 09/19 -HVF 07/2024 false negatives off [...] of its relevant components. documented in this encounterBellevue [facility]04-28-2025 NoteHNO ID: [id number] Author: SHAWN SHEA MD Service: ? Author Type: Physician Type: Progress Notes Filed: 01/14/2025 15:00 Note Text: New from [facility] Tmax: <22; Pachy: -, - Lasers and Surgeries: OD: CEIOL OS: 11/2022 Selected laser trabeculoplasty (SLT) Selected laser trabeculoplasty (SLT) previous yrs CEIOL Ocular Medication Intol and Non-efficacy: Bradycardia = BB Now on simbrinza /, rocklatan 09/19 -HVF 07/2024 false negatives off [...] and agree with all of its relevant components.[facility]04-17-2025 Procedure note [facility] Speech Pathology [address] [place] [address] Modified Barium Swallow Study MR#: [id number] Acct: [id number] Name: JESSEE RUST Rep #:[id number] : 1935 89 From: Jodee Samayoa, [facility]-ASSOCIATE FACULTY Modified Barium Swallow Patient Information Study Date: 01/02/25 Study Time: 13:00 Direct Billable Minutes: 73 Total Minutes procedure & reportin Diagnosis: Dysphagia R13.10 Referring Physician: Addi Mario Reason for Referral: Assess swallow function, assess risk for aspiration, and determine recommendations for least restrictive diet textures and dysphagia interventions. Medical History: PMH: Sore throat, Exposure to COVID-19 virus, Swallowing disorder, CHF, RA, HTN,A fib, Sepsis, Non-STEMI, Migraines, Restrictive airway disease, Asthma, Memory impairment, History of pneumonia, Orthostatic hypotension, Physical debility, HLD (See EMR for full PMH). The patient reports swallowing difficulty characterized by feeling as if he can't swallow. This issue began ~2-3 months ago. He reports his swallowing difficulty [...] exam) Respiratory Status: Oxygenating on Room Air Penetration-Aspiration Scale Penetration-Aspiration Scale: OBJECTIVE ASSESSMENT OF SWALLOW FUNCTION (QUANTITATIVE ? PER TRIAL): PENETRATION / ASPIRATION SCALE (VILLALOBOS): [...] % of the bolus, reduced cough reflex Penetration-Aspiration Scale Score Thin Liquid via teaspoon: Result: 1= does not enter airway Thin Liquid via teaspoon Trial 2: Result: 1= does not enter airway Thin Liquid via large single sip: cup: Result: 1= does not enter airway [place] Thick Liquid via large single sip: cup: [...] Hold: Escape to lateral buccal cavity/floor of mouth(large sips) Bolus Preparation/Mastication: Timely and efficient chewing and mashing Bolus [...] Parital distension and partial duration; parital obstruction offlow Tongue Base Retraction: Narrow column of contrast between tongue base & post. pharyngeal wall Pharyngeal Residue: Trace residue within or on pharyngeal structures Esophageal Phase Esophageal Clearance: Esophageal retention w/ retrograde flow below pharyngoesophageal seg. Diagnosis/Impression Diagnosis: Mild pharyngoesohageal dysphagia R13.14 Impression: The oral phase is grossly WNL. Mild pharyngeal deficits, including... -Mild delay in swallow onset. -Mildly decreased TB retraction notable w/ certain liquid trials; however, complete pharyngeal stripping wave and only trace pharyngeal residue. -Mildly decreased anterior hyoid excursion; however, complete laryngeal elevation. No laryngeal penetration or aspiration. Mild esophageal deficits, including... -Retention of pudding and cookie in the middle esophagus w/ retrograde flow to the middle esophagus. Liquid wash was effective in clearing esophageal retention. -Trace retention of barium in UES. Recommendations Diet: Regular Textures and Thin Liquids Compensatory Strategies: Small Bites, Small Sips, Alternate bites/solids and sips/liquids (Take a sip after each bite), Sitting upright and Remain sitting upright for 30 minutes after PO intake Recommend Repeat Modified Barium Swallow: No Need for Skilled Speech Therapy Services: No Recommended Referrals: GI Consult (consider GI consult due to esophageal retention w/ retrograde flow) Education Completed: 1. Described result of evaluation. Status Active ST Patient: Active Contact Information [facility] Speech Therapy:: Jodee Miller M.A. CCC-ASSOCIATE FACULTY? Speech-Language Pathologist?? [facility] [address] [place] [address]? [email or web address]?? [phone] 01/03/25 08Xiang Smart CCC-ASSOCIATE FACULTY> Date/Time Jodee Miller M.A., CCC-ASSOCIATE FACULTY Co-Signature Required for all Medicare patients Date/Time Co-Signature CC: ~ [facility]03-11-2025 Telephone encounter Note* Telephone Encounter - Alexis Green MD - 11/27/2024 9:43 PM EDT Received page that patient had called. [...] alternative measures Alexis Green MD Ophthalmology Resident [facility] Work Phone: [phone] Miscellaneous Notes* Telephone Encounter - Alexis Green MD - 11/27/2024 9:43 PM EDT Received page that patient had called. [...] Green MD Ophthalmology Resident documented in this encounterBellevue Hospital03-10-2025 Instructions* Patient Instructions* Shawn Shea MD - 11/26/2024 2:03 PM EDT You will be dilated on your next visit. This will likely make your vision blurry for several hours, and you should strongly consider bringing a local driver. Medication Eye # times daily Rocklatan (white cap) BOTH 1x daily (bedtime) Simbrinza (light green cap) BOTH 2x daily *please remember to wait at least 3 minutes between different drops in the same eye. 11/26/24 documented in this encounterBellevue Hospital03-10-2025 NoteDate of Procedure 11/26/2024. Construction Representative Information Client Portfolio Manager: JOSÉ MANUEL. Start time: 1:44 PM. Stop time: 1:50 PM. NFL Interpretation Right Eye Diffuse loss. Left Eye Diffuse loss. Interval Change Right Eye Stable. Left Eye Worse.[id number] NoteHNO ID: [id number] Author: SHAWN SHEA MD Service: ? Author Type: Physician Type: Progress Notes Filed: 01/07/2025 12:24 Note Text: New from [facility] Tmax: <22; Pachy: -, - Lasers and Surgeries: OD: CEIOL OS: 11/2022 Selected laser trabeculoplasty (SLT) Selected laser trabeculoplasty (SLT) previous yrs CEIOL Ocular Medication Intol and Non-efficacy: Bradycardia = BB Now on alphagan 11/19, rocklatan 09/19 Next on simbrinza /, rocklatan 09/19 -HVF 07/2024 false negatives off [...] and agree with all of its relevant components.[facility]03-10-2025 History of Present illness Narrative* Shawn Shea MD - 11/26/2024 1:58 PM EDT New from [place] Tmax: <22; Pachy: -, - Lasers and Surgeries: OD: CEIOL OS: 11/2022 Selected laser trabeculoplasty (SLT) Selected laser trabeculoplasty (SLT) previous yrs CEIOL Ocular Medication Intol and Non-efficacy: Bradycardia = BB Now on alphagan 11/19, rocklatan 09/19 Next on simbrinza 10/21, rocklatan 09/19 -HVF 07/2024 false negatives off [...] of its relevant components. documented in this encounterBellevue Hospital02-27-2025 Evaluation note* Diagnosis Onset Date Resolution Status Admit Date Swallowing disorder acute Febru saman 2024 3:01pm Anemia chronic November 15, 2024 3:01pm Asthma chronic November 15, 2024 3:01pm Essential hypertension chronic Fe bruary 2024 3:01pm Hyperlipidemia chronic October 212024 3:01pm Exposure to COVID-19 virus acute November 30, 2024 1:36pm Sore throat acute November 30, 2 025 1:36pm Asthma chronic December 14 1:29pm CHF (congestive heart failure) [facility] December 14, 2024 1:29pm Asthma chronic February 14, 2025 2:05pm Atrial fibrillation chronic January 182024 2:05pm Debility chronic February 14, 2025 2:05pm Essential hypertension chronic 2024 2:05pm Hyperlipidemia chronic February 14, 2025 2:05pm Anemia chronic February 19, 2025 2:15pm Aortic stenosis February 19, 2025 2:15pm Atherosclerosis of coronary artery of [place] heart without angina pectoris February 19, 2025 2 :15pm CHF (congestive heart failure) [facility] February 19, 2025 2:15pm Hyperlipidemia chronic February 19, 2025 2:15pm Paroxysmal atrial fibrillation [facility] February 19, 2025 2:15pm Sinus bradycardia chronic February 2:15pm [facility] Work Phone: 1(175) 253-900202-04-2025 Evaluation note* Diagnosis Onset Date Resolution Status Admit Date Anemia chronic October 23, 2024 1:53pm Aortic stenosis chronic October 23, 2024 1:53pm Atherosclerosis of coronary artery of [place] heart without angina pectoris October 23 1:53pm CHF (congestive heart failure) [facility] October 23, 2024 1:53pm Hyperlipidemia chronic October 232024 1:53pm Paroxysmal atrial fibrillation [facility] October 23, 2024 1:53pm Sinus bradycardia chronic 2024 1:53pm Swallowing disorder acute Febru saman2024 3:01pm Anemia chronic November 15, 2024 3:01pm Asthma chronic November 15, 2024 3:01pm Essential hypertension chronic Fe bruary 2024 3:01pm Hyperlipidemia chronic October 212024 3:01pm Exposure to COVID-19 virus acute November 30, 2024 1:36pm Sore throat acute November 30, 2 025 1:36pm Asthma chronic December 14 1:29pm CHF (congestive heart failure) [facility] December 14, 2024 1:29pm [facility] Work Phone: 1(880) 582-495302-04-2025 Evaluation note* Diagnosis Onset Date Resolution Status Admit Date Anemia chronic October 23, 2024 1:53pm Aortic stenosis chronic October 23, 2024 1:53pm Atherosclerosis of coronary artery of [place] heart without angina pectoris October 23 1:53pm CHF (congestive heart failure) chron October 23, 2024 1:53pm Hyperlipidemia chronic October 232024 1:53pm Paroxysmal atrial fibrillation chron October 23, 2024 1:53pm Sinus bradycardia chronic 2024 1:53pm Swallowing disorder acute Febru 2024 3:01pm Anemia chronic November 15, 2024 3:01pm Asthma chronic November 15, 2024 3:01pm Essential hypertension chronic Fe bruary 2024 3:01pm Hyperlipidemia chronic October 212024 3:01pm Exposure to COVID-19 virus acute November 30, 2024 1:36pm Sore throat acute November 30, 2 025 1:36pm Asthma chronic December 14 1:29pm CHF (congestive heart failure) [facility] December 14, 2024 1:29pm Asthma chronic February 14, 2025 2:05pm Atrial fibrillation chronic January 182024 2:05pm Debility chronic February 14, 2025 2:05pm Essential hypertension chronic 2024 2:05pm Hyperlipidemia chronic February 14, 2025 2:05pm [facility] Work Phone: 1(368) 674-389402-04-2025 Evaluation note* Diagnosis Onset Date Resolution Status Admit Date Anemia chronic October 23, 2024 1:53pm Aortic stenosis chronic October 23, 2024 1:53pm Atherosclerosis of coronary artery of [place] heart without angina pectoris October 23 1:53pm CHF (congestive heart failure) chron ic October 23, 2024 1:53pm Hyperlipidemia chronic October 232024 1:53pm Paroxysmal atrial fibrillation chron October 23, 2024 1:53pm Sinus bradycardia chronic [...] 2025 2:15pm Atherosclerosis of coronary artery of [place] heart without angina pectoris chronic February 19, 2025 2 :15pm CHF (congestive heart failure) chron ic February 19, 2025 2:15pm Hyperlipidemia chronic February 19, 2025 2:15pm Paroxysmal atrial fibrillation chron ic February 19, 2025 2:15pm Sinus bradycardia chronic February 2:15pm [facility] Work Phone: 1(300) 423-893501-15-2025 Telephone encounter Note* Telephone Encounter - Leesa Stratton - 10/03/2024 3:10 PM EST Images from the original note were not included. spoke to pt Shawn Shea MD You; Farhat Herrera MD16 minutes ago (2:52 PM) Restart alphagan three times a day both eyes [facility] Work Phone: 1(146) 948-401601-15-2025 Miscellaneous Notes* Telephone Encounter - Leesa Stratton - 10/03/2024 3:10 PM EST Images from the original note were not included. spoke to pt Shawn Shea MD You; Farhat Herrera MD16 minutes ago (2:52 PM) Restart alphagan three times a day both eyes * Telephone Encounter - JohnathonLeesa Chen - 10/03/2024 2:19 PM EST patient reporting that he has not been taking his alphagan since 08/12, he was on the med for 2 days and then developed OU conjunctivitis, he took medicine for that but never went back on the alphagan what should he do at this point? [phone] he was offered an appt on 10/08 at [facility] but he declined Shawn Shea MD filed at 07/30/2024 2:11 PM Status: Signed New from [facility] Tmax: <22; Pachy: -, - Lasers and [...] agree withall of it documented in [facility] encounterBelle[facility]01-15-2025 Telephone encounter Note * Telephone Encounter - Leesa Stratton - 10/03/2024 2:19 PM EST patient reporting that he has not been taking his alphagan since 08/12, he was on the med for 2 days and then developed OU conjunctivitis, he took medicine for that but never went back on the alphagan what should he do at this point? [phone] he was offered an appt on 10/08 at [facility] but he declined Shawn Shea MD filed at 07/30/2024 2:11 PM Status: Signed New from [facility] Tmax: [...] stated above and agree withall of it [facility]11-26-2024 NoteHNO ID: [id number] Author: PRIYA SALEH OD Service: ? Author Type: PIPELINE OPERATOR Type: Progress Notes Filed: 08/14/2024 10:07 Note [...] Monse Saleh, CHRISTY August 14, 2024 10:03 [facility]11-26-2024 History of Present illness Narrative* Priya [...] 14, 2024 10:03 AM documented in this encounterBellevue Hospital11-26-2024 Instructions* Patient Instructions* Priya Saleh, OD - 08/14/2024 9:22 AM EST Use PF Systane 5 minutes before each dose of Brimonidine Use Systane, Refresh or Blink gel nightly before bed in both eyes Use warm compresses daily documented in this encounterBellevue Hospital11-21-2024 Evaluation note* Diagnosis Onset Date Resolution Status Admit Date Bilateral conjunctivitis acute August 09, 2024 1:15pm Bilateral conjunctivitis acute August 15, 2024 2:19pm Anemia chronic August 15, 2024 2:19pm Essential hypertension chronic No vember 2023 2:19pm GERD (gastroesophageal reflu x disease) chronic August 15, 024 2:19pm Hyperlipidemia chronic July 212023 2:19pm Vitamin D deficiency chronic Nove mber 2023 2:19pm Anemia chronic October 23, 2024 1:53pm Aortic stenosis chronic October 23, 2024 1:53pm Atherosclerosis of coronary artery of [place] heart without angina pectoris chronic October 23 1:53pm CHF (congestive heart failure) chron October 23, 2024 1:53pm Hyperlipidemia chronic October 232024 1:53pm Paroxysmal atrial fibrillation chron October 23, 2024 1:53pm Sinus bradycardia chronic 2024 1:53pm Swallowing disorder acute Febru saman 2024 3:01pm Anemia chronic November 15, 2024 3:01pm Asthma chronic November 15, 2024 3:01pm Essential hypertension chronic Fe bruary 2024 3:01pm Hyperlipidemia chronic October 212024 3:01pm [facility] Work Phone: 1(734) 767-918111-11-2024 Instructions* Patient Instructions* Shawn Shea MD - 07/30/2024 2:10 PM EST You will be dilated on your next visit. This will likely make your vision blurry for several hours, and you should strongly consider bringing a local driver. documented in this encounterBellevue Hospital11-11-2024 NoteDate of Procedure 07/30/2024. Reliability Right Eye Poor. Left Eye Poor. Interpretation Right Eye Arcuate defect, Altitudinal defect, Central defect. Left Eye Arcuate defect, Altitudinal defect, Central defect.[id number] NoteHNO ID: [id number] Author: SHAWN SHEA MD Service: ? Author Type: Physician Type: Progress Notes Filed: 07/30/2024 14:11 Note Text: New from [facility] Tmax: <22; Pachy: -, - Lasers and [...] and agree with all of its relevant components.[facility]11-11-2024 History of Present illness Narrative* Shawn Shea MD - 07/30/2024 2:05 PM EST New from [facility] Tmax: <22; Pachy: -, - Lasers and [...] of its relevant components. documented in this encounterBellevue Hospital08-27-2024 Telephone encounter Note * Telephone Encounter - Mikaela Tillman - 05/15/2024 10:14 AM EDT He's calling as about 4:45 this morning everything he was seeing was green, like a green filter in his vision. He did go back to sleep and his vision returned to normal, but he was told to let you know if anything changed. His vision is a slight bit blurry this morning. Shawn Seha MD filed at 03/12/2024 2:50 PM Status: [...] # band K both eyes - stable [facility]08-27-2024 Miscellaneous Notes* Telephone Encounter - Mikaela [...] both eyes - stable documented in this encounterBellevue Hospital06-26-2024 Telephone encounter Note * Telephone Encounter - Lucina Friedman LSW - 03/14/2024 1:38 PM EDT bench worker hollow handle received a consult order from Dr. Shea who is referring the patient to the [facility] for low vision services. bench worker hollow handle called the patient and discussed the referral and sight center services. Patient states that the sight center is too far from [place], [place] and has requested SW to send him vision resources. bench worker hollow handle and patient discussed use of I-Phone and I-Pad vision accessibility for improved reading and using AI Kamala for additional assistance with reading information. Patient is very comfortable using assistive technology and prefers to the methods he is currently using for visual adaptations. Discussed at length [employer] ChangeAgain.Me videos for SportyBird and other informationfrom various websites that would [...] it and get back to this SW. bench worker hollow handle to email vision resources. Patient will reach out to SW as needed. Contact information provided. [facility]06-26-2024 Miscellaneous Notes* Telephone Encounter - Lucina Friedman LSW - 03/14/2024 1:38 PM EDT bench worker hollow handle received a consult order from Dr. Shea who is referring the patient to the [facility] for low vision services. bench worker hollow handle called the patient and discussed the referral and sight center services. Patient states that the sight center is too far from [place], [place] and has requested SW to send him vision resources. bench worker hollow handle and patient discussed use of I-Phone and I-Pad vision accessibility for improved reading and using AI Kamala for additional assistance with reading information. Patient is very comfortable using assistive technology and prefers to the methods he is currently using for visual adaptations. Discussed at length [employer] YouTube videos for tech learning and other informationfrom various websites that [...] it and get back to this SW. bench worker hollow handle to email vision resources. Patient will reach out to as needed. Contact information provided. documented in this encounterBellevue Hospital06-24-2024 Note* Addendum Note - Shawn Shea MD - 03/12/2024 2:52 PM EDTAddended by: SHAWN SHEA on: 03/12/2024 02:52 PM Modules accepted: Orders [facility]06-24-2024 Miscellaneous Notes* Addendum Note - Shawn Shea MD - 03/12/2024 2:52 PM EDTAddended by: SHAWN SHEA on: 03/12/2024 02:52 PM Modules accepted: Orders documented in this encounterBellevue Hospital06-24-2024 NoteDate of Procedure 03/12/2024. Construction Representative Information Client Portfolio Manager: Start time: 2:37 PM. Stop time: 2:37 PM. NFL Interpretation Right Eye Diffuse loss. Left Eye Diffuse loss. Interval Change Right Eye Stable. Left Eye Stable.[id number] History of Present illness Narrative* Shawn Shea MD - 03/12/2024 1:45 PM EDT New from [facility] Tmax: <22; Pachy: -, - Lasers and [...] of its relevant components. documented in this encounterBellevue Hospital06-24-2024 NoteHNO ID: [id number] Author: SHAWN SHEA MD Service: ? Author [...] and agree with all of its relevant components.[facility]06-22-2024 Telephone encounter Note* Telephone Encounter - Alexis Green MD - 03/10/2024 11:21 AM EDT Received page that patient had called. Spoke to them on the phone at 11:24 AM. Patient has a history of POAG follows with Dr. Shea Patient requesting med refills sent to new pharmacy [facility]. Refills sent Alexis Green MD Ophthalmology Resident [facility]06-22-2024 Miscellaneous Notes* Telephone Encounter - Alexis Green MD - 03/10/2024 11:21 AM EDT Received page that patient had called. Spoke to them on the phone at 11:24 AM. Patient has a history of POAG follows with Dr. Shea Patient requesting med refills sent to new [facility]. Refills sent Alexis Green MD Ophthalmology Resident documented in this encounterBellevue Hospital04-25-2024 Miscellaneous Notes* Telephone Encounter - Malu Elias COA - 01/12/2024 3:37 PM EDT Spoke with Marta from [facility] and advised her the drops are not duplicates and the patient does need to use both drops. * Telephone Encounter - Tania Beckett - 01/02/2024 12:26 PM EDT Marta antunez [facility] [place] calling to let Dr. Shea that when she reconciled the patient's eye drops the computer showed them has duplicates. They are the brimonidine 0.01% drop and ROCKLATAN 0.02-0.005% ophthalmic solution. She believes they are the same. She can be reached at [phone]. documented in this encounterBellevue Hospital04-25-2024 Telephone encounter Note * Telephone Encounter - Malu Elias COA - 01/12/2024 3:37 PM EDT Spoke with Marta from [facility] and advised her the drops are not duplicates and the patient does need to use both drops. [facility]04-15-2024 Telephone encounter Note* Telephone Encounter - Tania Beckett - 01/02/2024 12:26 PM EDT Marta from [facility] calling to let Dr. Shea that when she reconciled the patient's eye drops the computer showed them has duplicates. They are the brimonidine 0.01% drop and ROCKLATAN 0.02-0.005% ophthalmic solution. She believes they are the same. She can be reached at [phone]. [facility]04-12-2024 Discharge summary Author Arsenio Mcgregor [facility] December 30, 2023 1:55pm Note Date/Time December 30, 2023 1:4 6pm [facility] Medical Records Department [address] [place] [address] Discharge Summary 12/30/23 1345 MR#: [id number] Acct: [id number] Name: JESSEE RUST Rep #:[id number] : 1935 88 From: Arsenio Mcgregor MD PCP: Dr. Addi Mario MD Status:A DM IN Location: [facility] TCU17-1 Providers Date of Admission: 12/08/23 Primary [...] Code(s): I25.10 - Atherosclerotic heart disease of [place] coronary artery without angina pectoris Plan 86 [...] mg tablet,delayed release 81 mg PO DAILY@0800 [facility] 12/06/16 travoprost 0.004 % eye drops [...] mg PO QODAY Supplement #90 tabs 11/23/23 orrzysod-ywx-wcpqt acid 0.4 mg-lycopene 300 mcg-lutein 250 mcg [...] to discharge home with . 12/21/2023 Dr. Lee Surgery/Procedure Performed:: Cystoscopy, right ureteroscopylaser lithotripsy of stone and removal of stent Discharge home with 01/01/2024, [facility] PT/OT/RN. Physical Exam Const alert General Appearance: [...] % (Auto) 44.5 L, Lymph % (Auto)35.0, Vilas % (Auto) 13.6 H, Eos % (Auto) [...] pain Additional Instructions: Discharge home with 01/01/2024, [facility] PT/OT/RN. Please Follow Up With: Darien Lee MD When: As scheduled. Meaningful Use Info Meaningful Use Diagnoses (Choose all that apply): None applicable Discharge Plan Admission Admit Date/Time: 12/08/23 13:05 Primary Reason for Your Visit: Debility. Attending Provider: Arsenio Mcgregor Chi Primary Care Provider: Addi Mario Instructions Additional Instructions / Restrictions: Discharge home with 01/01/2024, [facility] PT/OT/RN. Discharge Orders/Prescriptions Prescriptions: New furosemide 40 [...] can be placed): Home Health Service 12/30/23 7650 <Electronically signed by Arsenio Mcgregor MD> Cosigner Signature (if applicable): CC: Dr. Addi Mario MD; Dr. Arsenio Mcgregor MD~ Signed [facility] Work Phone: 1(207) 998-293104-03-2024 Discharge summary Author Darien Lee [facility] December 21, 2023 3:08pm Note Date/Time December 21, 2023 3:08 pm [facility] Medical Records Department [address] [place] [address] Instructions for Home/Discharge Instructions 12/21/23 1508 MR#: [id number] Acct: [id number] Name: JESSEE RUST Rep #:[id number] : 1935 88 From: Darien Lee MD PCP: Dr. Addi Mario MD Status:R [facility] Discharge Instructions Diet Discharge Diet: No restrictions Activity Discharge Activity: Return to Normal Activity and May Not Drive (while taking narcotic pain medications.) Dressing / Incision Call your doctor if you observe: Fever of 101 or Higher Follow Up Care Please Follow Up With: Darien Lee MD When: Call [phone] for an appointment Test Results: Test results [...] CC: Dr. Addi Mario MD ~ Signed [facility] Work Phone: 1(396) 589-593304-03-2024 History and physical note Author Darien Jesus [facility] December 21, 2023 3:08pm Note Date/Time December 21, 2023 3:08 pm [facility] Medical Records Department [address] [place] [address] History & Physical Exam 12/21/23 1508 MR#: [id number] Acct: [id number] Name: JESSEE RUST Rep #:[id number] : 1935 88 From: Darien Lee MD PCP: Dr. Addi Mario MD Status:R [facility] Location[place] [facility] - General General Date of Service: 12/21/23 Chief Complaint: Right kidney stone HPI Narrative JESSEE RUST, is a 88 M who presents for laser of her right kidney stone and removal of stent [facility] Medical History Advanced directives, counseling/discussion Anemia Anginal equivalent Aortic stenosis Asthma Atherosclerosis of coronary artery of [place] heart without angina pectoris Atrial fibrillation BPH [...] #90 tabs 11/23/23 [Rx Last Taken 12/01/23] rladaxvw-qkp-lqnbf acid 0.4 mg-lycopene 300 mcg-lutein 250 mcg [...] Mario MD; Dr. Darien Lee MD~ Signed [facility] Work Phone: 1(678) 481-965604-03-2024 Procedure [facility] 12-09-2023 Progress note Author Salome Childers [facility] December 09, 2023 12:05pm Note Date/Time December 09, 2023 11: 47am [facility] Medical Records Department [address] [place] [address] Progress Note - Pharmacy 12/09/23 1135 MR#: [id number] Acct: [id number] Name: JESSEE RUST Rep #:[id number] : 1935 88 From: Salome Childers PCP: Dr. Addi Mario MD Status:A DM IN Location: [facility] [place] [address] TCU RX Drug Regimen Review Subjective/Objective Subjective/Objective: [...] 10 Mg Tablet PO 10 mg DAILY [facility] Administration Famotidine 20 mg 12/09/23 10:00 12/09/23 09:52 Famotidine 20 Mg Tablet PO 20 mg DAILY [facility] Administration Ferrous Sulfate 325 mg 12/10/23 10:00 Ferrous Sulfate 325 Mg Tablet PO QODAY [facility] Finasteride 5 mg 12/09/23 10:00 12/09/23 09:53 Finasteride 5 Mg Tablet PO 5 mg DAILY [facility] Administration Furosemide 40 mg 12/09/23 10:00 12/09/23 09:51 Furosemide 40 Mg Tablet PO 40 mg DAILY [facility] Administration Protocol Guaifenesin 1,200 mg 12/08/23 22:00 12/09/23 09:52 Guaifenesin 1,200 Mg Tablet PO 1,200 mg 1000,2200 [facility] Administration Loratadine 10 mg 12/08/23 13:45 Loratadine 10 Mg Tablet PO DAILY PRN allergy Magnesium Chloride 128 mg 12/08/23 22:00 12/08/23 22:26 Magnesium Chloride 64 Mg Delay Rel.Tablet PO 128 mg QHS JOSE Administration Magnesium Citrate 300 ml 12/08/23 18:00 12/08/23 18:11 Magnesium Citrate 300 Ml PO 300 ml X1 [facility] Administration Multivitamins/Minerals 1 tablet 12/09/23 08:00 12/09/23 09:48 Multivitamins,Ther W-Minerals Tablet PO 1 tablet DAILYCM [facility] Administration Nitroglycerin 0.4 mg 12/08/23 [...] 12/09/23 05:34 Anion Gap 4 (5-15) L 03/22/24 05:34 BUN 28 mg/dL (7-18) H 12/09/23 [...] Senna/Docusate 1 tab PO BID, Dulcolax 10mg CO Daily PRN, Magnesium Citrate 300mL PO x1. [...] a lipid panel done since 07/2022 per [facility] EMR review.If clinically indicated, please consider obtaining a lipid panel if clinically indicated, thank you. Date Date of Note:: 12/09/23 12/09/23 1205 <Electronically signed by Salome Childers> Salome Denise Signature (if applicable): CC: ~ Signed [facility] Work Phone: 1(353) 651-667403-21-2024 History and physical note Author Arsenio Mcgregor [facility] December 08, 2023 6:00pm Note Date/Time December 08, 2023 5:3 9pm [facility] Medical Records Department [address] [place] [address] History & Physical Exam 12/08/23 1730 MR#: [id number] Acct: [id number] Name: JESSEE RUST Rep #:[id number] : 1935 88 From: Arsenio Mcgregor MD PCP: Dr. Addi Mario MD Status:A DM IN Location: [facility]CU17-1 HPI - General General Date of Admission: 12/08/23 Date of Service: 12/08/23 Chief Complaint: Here for rehabilitation. HPI Narrative 12/02/2023 JESSEE RUST, is a 88 Male who presents to [facility] ED with flank pain. Back pain, chest [...] UTI. Rocephin/Zithromax for pneumonia. 12/02/2023 Admit to [facility]. Hold Eliquis, continue Heparin drip, consult Cardiology, [...] strengthening, prior to discharge home with . [facility] Medical History (Updated 12/08/23 @ 17:[address] Arsenio Mcgregor MD) Advanced directives, counseling/discussion Anemia Anginal equivalent Aortic stenosis Asthma Atherosclerosis of coronary artery of [place] heart without angina pectoris Atrial fibrillation BPH [...] #90 tabs 11/23/23 [Rx Last Taken 12/01/23] fhxqanwy-hwf-oradt acid 0.4 mg-lycopene 300 mcg-lutein 250 mcg [...] Mario MD; Dr. Arsenio Mcgregor MD~ Signed [facility] Work Phone: 1(799) 223-628203-20-2024 Progress [facility] 07, 2023 4:28pm Note Date/Time December 07, 2023 12: 40pm [facility] Medical Records Department [address] [place] [address] Progress Note 12/07/23 1238 MR#: [id number] Acct: [id number] Name: JESSEE RUST Rep #:[id number] : 1935 88 From: Klaudia Gonzales MD PCP: Dr. Addi Mario MD Status:A DM IN Location: [place] [address] Subjective Subjective Patient seen and examined. He [...] (Auto) 60.6, Lymph % (Auto) 18.8 L, Vilas % (Auto) 17.2 H, Eos % (Auto) [...] Right Blood Culture - Final GNR lactose head sampler 12/02/23 13:20 Blood Culture (Wb) - Anticubital [...] medically stable. Charges/Coding Visit Charges Inpatient E&M: 71111 Subs Hosp L2 12/07/23 1628 <Electronically signed by Klaudia Gonzales MD> Klaudia Gonzales MD Cosigner Signature (if applicable): CC: ~ Signed [facility] Work Phone: 1(922) 831-658803-20-2024 Procedure [facility] 12-07-2023 Progress note Author Vanessa Simmons [facility] December 07, 2023 11:50am Note Date/Time December 07, 2023 11: 50am [facility] Medical Records Department [address] [place] [address] [place] [address] Progress Note 12/07/23 1150 MR#: [id number] Acct: [id number] Name: JESSEE RUST Rep #:[id number] : 1935 88 From: Vanessa Simmons MD PCP: Dr. Addi Mario MD Status:A DM IN Location: [place] [address] Progress Note Notified that the patient had a run of nonsustained ventricular tachycardia. Patient asymptomatic. Check electrolytes and magnesium. Increase carvedilol to 6.25 mg twice daily. 12/07/23 1150 <Electronically signed by Vanessa Simmons MD> Vanessa Simmons MD Cosigner Signature (if applicable): CC: ~ Signed [facility] Work Phone: 1(739) 963-102303-19-2024 Consult note Author Darien Lee [facility] December 06, 2023 9:22pm Note Date/Time December 06, 2023 9:2 0pm [facility] Medical Records Department [address] [place] [address] Consultation - Urology 12/06/232117 MR#: [id number] Acct: [id number] Name: JESSEE RUST Rep #:[id number] : 1935 88 From: Darien Lee MD PCP: Dr. Addi Mario MD Status:A DM IN Location: [place] [address] Assessment & Plan Assessment/Plan (1) Ureteral calculi: PLAN: Right ureteral calculi. NPO plan for cysto right stent tomorrow. HPI Consult Data Date of Consult: 12/06/23 HPI Narrative Reason for Consultation: Right kidney stone HPI Narrative: JESSEE RUST, is a 88 M who presents to hospital with heart problems, had cardiac cath done, Ct scan post demonstrates a 9mm Right UPJ stone with obstruction. pt. is o/w stable. [facility] Medical History Advanced directives, counseling/discussion Anemia Anginal equivalent Aortic stenosis Asthma Atherosclerosis of coronary artery of [place] heart without angina pectoris Atrial fibrillation BPH [...] mg tablet,delayed release 81 mg PO DAILY@0800 [facility] 12/06/16 [History Last Taken 12/02/23] travoprost [...] #90 tabs 11/23/23 [Rx Last Taken 12/01/23] pxjdomqi-tzt-jozsu acid 0.4 mg-lycopene 300 mcg-lutein 250 mcg [...] (Auto) 68.0, Lymph % (Auto) 16.5 L, Vilas % (Auto) 12.5 H, Eos % (Auto) [...] Darien Lee MD;Dr. Miguelito Laguna MD~ Signed [facility] Work Phone: 1([phone]) 657-551503-19-2024 Progress note Author Sally Zelaya [facility] December 06, 2023 8:07pm Note Date/Time December 06, 2023 8:0 7pm [facility] Medical Records Department [address] [place] [address] Progress Note - Hospitalist 12/06/232005 MR#: [id number] Acct: [id number] Name: JESSEE RUST Rep #:[id number] : 1935 88 From: Sally Zelaya MD PCP: Dr. Addi Mario MD Status:A DM IN Location: [place] [address] A/P w/ left lower [...] any concerns arise low threshold to involve jewelry consultant. 12/06/232006 <Electronically signed by Sally Zelaya MD> Cosigner Signature (if applicable): CC: ~ Signed [facility] Work Phone: [phone]) 108-771503-19-2024 Progress note Author Klaudia Wuyael [facility] December 06, 2023 3:37pm Note Date/Time December 06, 2023 3:3 7pm [facility] Medical Records Department [address] [place] [address] Progress Note 12/06/23 1529 MR#: [id number] Acct: [id number] Name: JESSEE RUST Rep #:[id number] : 1935 88 From: Klaudia Gonzales MD PCP: Dr. Addi Mario MD Status:A DM IN Location: [place] [address] Subjective Subjective Patient seen and examined. He [...] (Auto) 68.0, Lymph % (Auto) 16.5 L, Vilas % (Auto) 12.5 H, Eos % (Auto) [...] Right Blood Culture - Final GNR lactose head sampler 12/02/23 13:20 Blood Culture (Wb) - Anticubital [...] medically stable. Charges/Coding Visit Charges Inpatient E&M: 09662 Subs Hosp L2 12/06/23 1537 <Electronically signed by Klaudia Gonzales MD> Klaudia Gonzales MD Cosigner Signature (if applicable): CC: ~ Signed [facility] Work Phone: 1([phone]) 346-471203-19-2024 Progress note Author Vanessa Simmons [facility] December 06, 2023 12:18pm Note Date/Time December 06, 2023 12: 18pm [facility] Medical Records Department [address] [place] [address] Progress Note - Cardiology 12/06/23 1213 MR#: [id number] Acct: [id number] Name: JESSEE RUST Rep #:[id number] : 1935 88 From: Vanessa Simmons MD PCP: Dr. Addi Mario MD Status:A DM IN Location: [place] [address] Subjective Subjective Denies any complaints today. Sitting [...] (Auto) 68.0, Lymph % (Auto) 16.5 L, Vilas % (Auto) 12.5 H, Eos % (Auto) [...] (Auto) 68.0, Lymph % (Auto) 16.5 L, Vilas % (Auto) 12.5 H, Eos % (Auto) [...] Cosigner Signature (if applicable): CC: ~ Signed [facility] Work Phone: 1(580) 533-503603-18-2024 Progress note Author [facility]ia [facility] December 05, 2023 3:53pm Note Date/Time December 05, 2023 1:3 6pm [facility] Medical Records Department [address] [place] [address] Progress Note 12/05/23 1319 MR#: [id number] Acct: [id number] Name: JESSEE RUST Rep #:[id number] : 1935 88 From: Klaudia Gonzales MD PCP: Dr. Addi Mario MD Status:A DM IN Location: [place] [address] Subjective Subjective Patient seen and examined today. [...] 71.3 H, Lymph % (Auto) 15.2 L, Vilas % (Auto) 11.6 H, Eos % (Auto) [...] Right Blood Culture - Final GNR lactose head sampler 12/02/23 13:20 Blood Culture (Wb) - Anticubital [...] to thrombocytopenia. Charges/Coding Visit Charges Inpatient E&M: 76950 Subs Hosp L2 12/05/23 3091 <Electronically signed by Klaudia Gonzales MD> Klaudia Gonzales MD Cosigner Signature (if applicable): CC: ~ Signed [facility] Work Phone: [phone] Progress note Author Vanessa Troy [facility] December 05, 2023 10:09am Note Date/Time December 05, 2023 10: 09am [facility] Medical Records Department [address] [place] [address] Progress Note 12/05/23 1009 MR#: [id number] Acct: [id number] Name: JESSEE RUST Rep #:[id number] : 1935 88 From: Vanessa Simmons MD PCP: Dr. Addi Mario MD Status:A DM IN Location: [place] [address] Progress Note Platelet count stable. Creatinine also stable. Recommend coronary angiography with possible revascularization. Risks benefits and alternatives explained to the patient. He understand these and wishes to proceed. 12/05/23 1009 <Electronically signed by Vanessa Simmons MD> Vanessa Simmons MD Cosigner Signature (if applicable): CC: ~ Signed [facility] Work Phone: [phone] Progress note Author Klaudia [facility] December 04, 2023 1:16pm Note Date/Time December 04, 2023 12: 55pm [facility] Medical Records Department [address] [place] [address] Progress Note 12/04/23 1254 MR#: [id number] Acct: [id number] Name: JESSEE RUST Rep #:[id number] : 1935 88 From: Klaudia Gonzales MD PCP: Dr. Addi Mario MD Status:A DM IN Location: [place] [address] Subjective Subjective Patient seen and examined. He [...] 78.9 H, Lymph % (Auto) 8.8 L, Vilas % (Auto) 8.4, Eos % (Auto) 0.1, [...] to thrombocytopenia. Charges/Coding Visit Charges Inpatient E&M: 78262 Subs Hosp L3 12/04/23 1316 <Electronically signed by Klaudia Gonzales MD> Klaudia Gonzales MD Cosigner Signature (if applicable): CC: ~ Signed [facility] Work Phone: [phone]) [phone] Progress note Author Vanessa Simmons [facility] December 04, 2023 12:28pm Note Date/Time December 04, 2023 12: 28pm [facility] Medical Records Department [address] [place] [address] Progress Note - Cardiology 12/04/23 1226 MR#: [id number] Acct: [id number] Name: JESSEE RUST Rep #:[id number] : 1935 88 From: Vanessa Simmons MD PCP: Dr. Addi Mario MD Status:A DM IN Location: [place] [address] Subjective Subjective Feels better. No complaints. Objective [...] 78.9 H, Lymph % (Auto) 8.8 L, Vilas % (Auto) 8.4, Eos % (Auto) 0.1, [...] 78.9 H, Lymph % (Auto) 8.8 L, Vilas % (Auto) 8.4, Eos % (Auto) 0.1,Baso [...] MD at 16:56 EDT , Physical Exam Narrative Comfortable. Lying flat [...] Cosigner Signature (if applicable): CC: ~ Signed [facility] Work Phone: [phone] 687-779003-16-2024 Progress note Author Klaudia Gonzales [facility] December 03, 2023 4:37pm Note Date/Time December 03, 2023 4:3 7pm [facility] Medical Records Department [address] [place] [address] Progress Note 12/03/23 1623 MR#: [id number] Acct: [id number] Name: JESSEE RUST Rep #:[id number] : 1935 88 From: Klaudia Gonzales MD PCP: Dr. Addi Mario MD Status:A DM IN Location: [place] [address] Subjective Subjective Patient seen and examined. He [...] 81.4 H, Lymph % (Auto) 7.3 L, Vilas % (Auto) 7.4, Eos % (Auto) 0.7, [...] Catch Urine Culture - Preliminary GNR lactose head sampler 12/02/23 13:30 Blood Culture (Wb) - Anticubital [...] heparin drip Charges/Coding Visit Charges Inpatient E&M: 70048 Subs Hosp L3 12/03/23 1637 <Electronically signed by Klaudia Gonzales MD> Klaudia Gonzales MD Cosigner Signature (if applicable): CC: ~ Signed [facility] Work Phone: [phone] 172-970503-16-2024 Consult note Author Vanessa Simmons [facility] December 03, 2023 11:01am Note Date/Time December 03, 2023 10: 47am [facility] Medical Records Department [address] [place] [address] Consultation - Cardiology 12/03/23 1046 MR#: [id number] Acct: [id number] Name: JESSEE RUST Rep #:[id number] : 1935 88 From: Vanessa Simmons MD PCP: Dr. Addi Mario MD Status:A DM IN Location: [place] [address] Assessment & Plan Assessment/Plan (1) Non-STEMI (non-ST [...] troponins were also noted to be elevated. [facility] Medical History (Updated 12/03/23 @ 10:[address] Vanessa Simmons MD) Advanced directives, counseling/discussion Anemia Anginal equivalent Aortic stenosis Asthma Atherosclerosis of coronary artery of [place] heart without angina pectoris Atrial fibrillation BPH [...] #90 tabs 11/23/23 [Rx Last Taken 12/01/23] aynfcsfp-ohw-rcbzr acid 0.4 mg-lycopene 300 mcg-lutein 250 mcg [...] 83.1 H, Lymph % (Auto) 11.5 L, Vilas % (Auto) 4.1, Eos % (Auto) 0.5, [...] Sl. Cloudy, Urine pH 7.0, Ur Specific Devers 1.010, Urine Protein 15 H, Urine Glucose [...] 81.4 H, Lymph % (Auto) 7.3 L, Vilas % (Auto) 7.4, Eos % (Auto) 0.7, [...] 83.1 H, Lymph % (Auto) 11.5 L, Vilas % (Auto) 4.1, Eos % (Auto) 0.5, [...] Sl. Cloudy, Urine pH 7.0, Ur Specific Devers 1.010, Urine Protein 15 H, Urine Glucose (UA) Normal, Urine Ketones Negative, Urine Occult Blood 50 H, Urine Nitrite Negative, Urine Bilirubin Negative, Urine Urobilinogen Normal, Ur Leukocyte Esterase 100 H, Urine RBC 0-5 SEEN, Urine WBC 10-25 SEEN 12/02/23 15:04: pH 7.48 H, Bicarbonate Actual 24.6, Base Excess 1, O2 Rdzmvsslnj06 L, ABG pCO2 33.1 L, ABG pO2 [...] 81.4 H, Lymph % (Auto) 7.3 L, Vilas % (Auto) 7.4, Eos % (Auto) 0.7, [...] Mario MD; Dr. Miguelito Laguna MD~ Signed [facility] Work Phone: [phone]) 885-757503-15-2024 History and physical note Author Miguelito Laguna [facility] December 02, 2023 6:15pm Note Date/Time December 02, 2023 5:4 5pm [facility] Medical Records Department [address] [place] [address] H&P Exam - Hospitalist 12/02/23 1741 MR#: [id number] Acct: [id number] Name: JESSEE RUST Rep #:[id number] : 1935 88 From: Miguelito gan MD PCP: Dr. Addi Mario MD Status:A DM IN Location: [place] [id number] 1 HPI - General General Date of [...] did notify cardiology about his potential non-STEMI. [facility] Medical History (Updated 12/02/23 @ 17:40 by Saumya Presley) Advanced directives, counseling/discussion Anemia Anginal equivalent Aortic stenosis Asthma Atherosclerosis of coronary artery of [place] heart without angina pectoris Atrial fibrillation BPH [...] tablet,delayed release 81 mg PO DAILY@0800 heart [facility] 12/06/16 [History Last Taken 12/02/23] travoprost [...] #90 tabs 11/23/23 [Rx Last Taken 12/01/23] bynyiumf-dvf-igscj acid 0.4 mg-lycopene 300 mcg-lutein 250 mcg [...] 83.1 H, Lymph % (Auto) 11.5 L, Vilas % (Auto) 4.1, Eos % (Auto) 0.5, [...] Sl. Cloudy, Urine pH 7.0, Ur Specific Devers 1.010, Urine Protein 15 H, Urine Glucose [...] 15:48 EDT Reading Location ID and State: [address] [place] [address] , Service support , Assessment & Plan [...] with colleagues Charges/Coding Visit Charges Inpatient E&M: 23363 Init Hosp L3 12/02/23 1815 <Electronically signed by Miguelito Laguna MD> Cosigner Signature (if applicable): CC: Dr. Addi Mario MD; Dr. Miguelito Laguna MD~ Signed [facility] Work Phone: [phone]) 541-931103-15-2024 Discharge summary Author Antonio James [facility] December 02, 2023 5:58pm Note Date/Time December 02, 2023 1:1 2pm [facility] Medical Records Department [address] [place] [address] Emergency Department Summary 12/02/23 MR#: [id number] Acct: [id number] Name: JESSEE RUST Rep #:[id number] : 1935 88 From: Antonio Taylor PCP: Dr. Addi Mario MD Status:A DM IN Location: [place] [address] HPI History of Present Illness Chief Complaint: Flank [...] bladder changes. Patient denies any saddle anesthesia. [facility] Medical History Advanced directives, counseling/discussion Anemia Anginal equivalent Aortic stenosis Asthma Atherosclerosis of coronary artery of [place] heart without angina pectoris BPH (benign prostatic [...] tablet,delayed release 81 mg PO DAILY@0800 heart [facility] 12/06/16 [History Last Taken 12/02/23] travoprost [...] #90 tabs 11/23/23 [Rx Last Taken 12/01/23] utdoqapl-dmu-ffdbb acid 0.4 mg-lycopene 300 mcg-lutein 250 mcg [...] QTc interval was normal at 452 ms. [place] was borderline left axis deviation at -25. There are no acute ST or T wave changes noted. 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 Call [facility] ([phone]) or report to the closest Emergency Room. Call 911 if necessary. 12/02/23 615 <Electronically signed by Antonio James DO> Cosigner Signature (if applicable): CC: Dr. Addi Mario MD ~ Signed [facility] Work Phone: [phone]) 317-366402-19-2024 Miscellaneous Notes* Addendum Note - Shawn Shea MD - 11/07/2023 3:03 PM ESTAddended by: SHAWN SHEA on: 11/07/2023 03:03 PM Modules accepted: [facility] Instructions* Patient Instructions* Shawn Shea MD - 11/07/2023 2:56 PM EST You will be dilated on your next visit. This will likely make your vision blurry for several hours, and you should strongly consider bringing a local driver. documented [facility]02-[facility] History of Present illness Narrative* Shawn Shea MD - 11/07/2023 2:52 PM EST New from [place] Tmax: <22; Pachy: -, [...] components. Shawn Shea MD documented in this encounterBelle[facility]12-15-2023 Miscellaneous Notes* Telephone Encounter - Xenia [...] second floor appt desk found appt in [place] for him on 09-06. * Telephone Encounter [...] 07/04/2023 2:28 PM Status: Signed New from [place] Tmax: <22; Pachy: -, - Lasers and [...] both eyes - stable documented in this encounterBelle[facility]10-16-2023 History of Present illness Narrative* Shawn Shea MD - 07/04/2023 3:45 PM EDT New from Tmax: <22; Pachy: [...] components. Shawn Shea MD documented in [facility] encounterB[facility]09-13-2023 History of Present illness Narrative* Shawn [...] components. Shawn Shea MD documented in this encounterB[facility]08-04-2023 Discharge summary [facility] April 22, 2023 10:17pm Note Date/Time April 22, 2023 8:4 7pm [facility] Medical Records Department [address] [place] [address] Emergency Department Summary 04/22/23 MR#: [id number] Acct: [id number] Name: JESSEE RUST Rep #:[id number] : [...] chest pain, abdominal pain, nausea, and vomiting. [facility] <BASSEM Soria - Last Filed: 04/22/23 22:01> [facility] Medical History Advanced directives, counseling/discussion Anemia Anginal equivalent Aortic stenosis Asthma Atherosclerosis of coronary artery of [place] heart without angina pectoris BPH (benign prostatic [...] <BASSEM Soria - Last Filed: 04/22/23 22:01> [facility] Narrative Medical decision making narrative: Patient presenting [...] 21:22 EDT Reading Location ID and State: [facility] / [place] Tel [phone], Service support , <Dr. Heber Miranda MD - Last Filed: 04/22/23 22:17> [facility] Narrative Medical decision making narrative: Patient presenting [...] 21:22 EDT Reading Location ID and State: [facility] / [place] Tel [phone], Service support , Treatment and Re-Evaluation :: [...] your Primary Care Provider. Call [facility] ([phone]) or report to the closest Emergency Room. Call 911 if necessary. 04/22/232200 <Electronically signed by Marisol LUEVANO> Cosigner Signature (if applicable): 04/22/232216 <Electronically signed by Heber Miranda MD> CC: Dr. Addi Mario MD ~ Signed [facility] Work Phone: 1(453) 425-857607-03-2023 Discharge summary Author Washington Pepper [facility] March 21, 2023 10:46pm Note Date/Time March 21, 2023 10:44 pm [facility] Medical Records Department [address] [place] [address] Emergency Department Summary 03/21/23 MR#: [id number] Acct: [id number] Name: JESSEE RUST Rep #:[id number] : 1935 88 From: Washington Taylor PCP: Dr. Addi Mario MD Status:R EG ER Location: ED HPI History of Present Illness Chief [facility]: [facility] Medical History Advanced directives, counseling/discussion Anemia Anginal equivalent Aortic stenosis Asthma Atherosclerosis of coronary artery of [place] heart without angina pectoris BPH (benign prostatic [...] Ox 97 Oxygen Delivery Method Room Air [facility] MDM Narrative Medical decision making narrative: HISTORY OF [...] your Primary Care Provider. Call [facility] ([phone]) or report to the closest Emergency Room. Call 911 if necessary. 03/21/232245 <Electronically signed by Washington Pepper DO> Cosigner Signature (if applicable): CC: Dr. Addi Mario MD ~ Signed [facility] Work Phone: [phone]) 846-217807-03-2023 Hospital Discharge instructions Additional Instructions Thank you [...] care physician for further outpatient evaluation and management.[facility] Work Phone: 1([phone]) 209-270006-24-[address] Ferrera [facility] March 12, 2023 2:45pm Note Date/Time March 12, 2023 1:29 pm [facility] Medical Records Department [address] [place] [address] Emergency Department Summary 03/12/23 MR#: [id number] Acct: [id number] Name: JESSEE RUST Rep #:[id number] : [...] palpitations. At this time he is asymptomatic. [facility] Medical History Advanced directives, counseling/discussion Anemia Anginal equivalent Aortic stenosis Asthma Atherosclerosis of coronary artery of [place] heart without angina pectoris BPH (benign prostatic [...] I advised close outpatient follow-up with his police specialist after the weekend he is comfortable [...] % (Auto) 51.9 Lymph % (Auto) 32.4 Vilas % (Auto) 11.6 H Eos % (Auto) [...] your Primary Care Provider. Call [facility] ([phone]) or report to the closest Emergency Room. Call 911 if necessary. 03/12/23 1441 <Electronically signed by Javier Ferrera MD> Cosigner Signature (if applicable): CC: Dr. John Cool MD; Dr. Addi Mario MD ~ Signed [facility] Work Phone: [phone]) 526-957904-05-2016 History of Past illness Narrative* Problem Noted [...] of this encounter (statuses as of 07/12/2022) [facility] of Past illness Narrative* Problem [...] 11/02/2016 Biliary cirrhosis 11/21/2006 08/26/2010 Overview: Dr. oV Cough 11/21/2006 12/16/2015 Elevated prostate specific antigen [...] of this encounter (statuses as of 06/01/2023) [facility] of Past illness Narrative* Problem [...] of this encounter (statuses as of 07/05/2023) [facility] of [facility] illness Narrative* Problem [...] of this encounter (statuses as of 09/03/2023) [facility] of [facility] illness Narrative* Problem [...] of this encounter (statuses as of 11/07/2023) [facility] Author Salome Childers [facility] December 08, 2023 11:03am Note Date/Time December 08, 2023 11: 03am [facility] Medical Records Department [address] [facility] [place] [address] Counseling Note - Pharmacy 12/08/23 1102 MR#: [id number] Acct: [id number] Name: JESSEE RUST Rep #:[id number] : 1935 88 From: Salome Childers PCP: Dr. Addi Mario MD Status:A DM IN Y Location: [facility] [id number] [place] [facility] Reconciliation Pharmacy Service has performed discharge [...] 325 mg PO QODAY #90 tabs 11/23/23 zagmtjhl-uvd-vtsja acid 0.4 mg-lycopene 300 mcg-lutein 250 mcg tablet (Centrum Silver) 1 tab PO DAILY 12/02/23 netarsudil 0.02 %-latanoprost 0.005 % eye drops (Rocklatan) 1 drp ophthalmic (eye) QHS 12/02/23 cefdinir 300 mg capsule 300 mg PO BID #10 caps 12/08/23 12/08/23 1103 <Electronically signed by Salome Childers > Date _ Salome Childers Cosigner Signature (if applicable): Date CC: ~ Signed [facility] Work Phone: Discharge summary Author [facility] December 08, 2023 10:47am Note Date/Time December 08, 2023 10: 47am [facility] Medical Records Department [address] [place] [address] Transfer to [facility] MR#: [id number] Acct: [id number] Name: JESSEE RUST Rep #:[id number] : 1935 88 From: Klaudia Gonzales MD PCP: Dr. Addi Mario MD Status:A DM IN Certification of patient admission REQUIRED AT TIME OF ADMISSION. I CERTIFY THAT POST-HOSPITAL ECF SERVICES ARE REQUIRED TO BE GIVEN ON AN IN-PATIENT BASIS BECAUSE OF THE ABOVE NAMED PATIENT'S NEED FOR [facility] CARE ON A CONTINUING BASIS FOR THE CONDITION(S) FOR WHICH HE/SHE WAS RECEIVING IN-PATIENT HOSPITAL SERVICES PRIOR TO HIS/HER TRANSFER TO THE F. 12/08/23 1047<Electronically signed by Klaudia Gonzales MD> [...] in before D/C Order can be placed): Detention Facility 12/08/23 1047 <Electronically signed by Klaudia Gonzales MD> Cosigner Signature (if applicable): CC: Dr. Vanessa Simmons MD; Dr. Addi Mario MD; Dr. Darien Lee MD;Dr. Miguelito Laguna MD ~ [facility] Work Phone: Evaluation note* Diagnosis Onset Date Resolution Status Atherosclerosis of coronary artery of [place] heart without angina pectoris chronic Bradycardia chronic Presence of stent in coronary artery chronic Obesity acute Restrictive airway disease a cute Asthma chronic Vitamin D deficiency acute Asthma chronic BPH (benign prostatic hyperplasia) chronic Dizziness chronic Essential hypertension chron ic Iron deficiency anemia chron ic Asthma chronic New onset atrial fibrillation acute Atherosclerosis of coronary artery of [place] heart without angina pectoris chronic Hyperlipidemia chronic [facility] Work Phone: Evaluation note* Diagnosis Onset Date Resolution Status Obesity acute Restrictive airway disease a cute Asthma chronic BPH (benign prostatic hyperplasia) chronic Essential hypertension chron ic Hyperlipidemia chronic Memory impairment chronic Physical debility chronic [facility] Work Phone: Evaluation note* Diagnosis Onset Date Resolution Status BPH (benign prostatic hyperplasia) chronic Essential hypertension chron ic Hyperlipidemia chronic Memory impairment chronic Physical debility chronic Hypertension chronic [facility] Work Phone: Evaluation note* Diagnosis Onset Date Resolution Status Essential hypertension chron ic Hyperlipidemia chronic Memory impairment chronic Aortic stenosis chronic Atherosclerosis of coronary artery of [place] heart without angina pectoris chronic Essential hypertension chron ic Hyperlipidemia chronic New onset atrial fibrillation chronic [facility] Work Phone: Evaluation note* Diagnosis Onset Date Resolution Status Aortic stenosis chronic Atherosclerosis of coronary artery of [place] heart without angina pectoris chronic Essential hypertension chron ic Hyperlipidemia chronic New onset atrial fibrillation chronic Asthma chronic Advanced directives, counseling/discussion acute Essential hypertension chron ic Glaucoma chronic Hyperlipidemia chronic Memory impairment chronic [facility] Work Phone: Evaluation note* Diagnosis Onset Date Resolution Status Advanced directives, counseling/discussion acute Essential hypertension chron ic Glaucoma chronic Hyperlipidemia chronic Memory impairment chronic Extensor tenosynovitis of right wrist acute [facility] Work Phone: Evaluation note* Diagnosis Onset Date Resolution Status Advanced directives, counseling/discussion acute Essential hypertension chron ic Glaucoma chronic Hyperlipidemia chronic Memory impairment chronic Extensor tenosynovitis of right wrist acute Essential hypertension chron ic Glaucoma chronic Psoriasis chronic Thrombocytopenia chronic Aortic stenosis chronic Atherosclerosis of coronary artery of [place] heart without angina pectoris chronic Essential hypertension chron ic Hyperlipidemia chronic New onset atrial fibrillation chronic [facility] Work Phone: Evaluation note* Diagnosis Onset Date Resolution Status Extensor tenosynovitis of right wrist acute Essential hypertension chron ic Glaucoma chronic Psoriasis chronic Thrombocytopenia chronic Aortic stenosis chronic Atherosclerosis of coronary artery of [place] heart without angina pectoris chronic Essential hypertension chron ic Hyperlipidemia chronic New onset atrial fibrillation chronic COVID-19 acute Asthma chronic Essential hypertension chron ic Hyperlipidemia [facility] Work Phone: Evaluation note* Diagnosis Primary open angle glaucoma (POAG) of both eyes, severe stage- Primary Epiretinal membrane (ERM) of left eye Band keratopathy, bilateral [facility] Primary open angle glaucoma (POAG) of both eyes, severe stage [facility] Primary open angle glaucoma (POAG) of both eyes, severe stage- Primary [facility] Diagnosis Onset Date Resolution Status Asthma chronic Essential hypertension chron ic Hyperlipidemia chronic Memory impairment chronic COVID-19 acute Aortic stenosis chronic Atherosclerosis of coronary artery of [place] heart without angina pectoris chronic Hyperlipidemia chronic Sinus bradycardia chronic Non-STEMI (non-ST elevated myocardial infarction) acute Sepsis acute Urinary tract infection acut e [facility] Work Phone: Evaluation note* Diagnosis Onset Date Resolution Status Asthma chronic Essential hypertension chron ic Hyperlipidemia chronic Memory impairment chronic COVID-19 acute Paroxysmal atrial fibrillation acute Aortic stenosis chronic Atherosclerosis of coronary artery of [place] heart without angina pectoris chronic Hyperlipidemia chronic Sinus bradycardia chronic Acute kidney injury acute Cardiomyopathy acute Mitral regurgitation acute Non-STEMI (non-ST elevated myocardial infarction) acute Paroxysmal atrial fibrillation acute Sepsis acute Ureteral calculi acute Urinary tract infection acut e Aortic stenosis chronic Hyperlipidemia chronic Primary biliary cirrhosis ch ronic Thrombocytopenia chronic [facility] Work Phone: Evaluation note* Diagnosis Onset Date Resolution Status COVID-19 acute Aortic stenosis chronic Atherosclerosis of coronary artery of [place] heart without angina pectoris chronic Paroxysmal atrial fibrillation chronic Sinus bradycardia chronic Aortic stenosis chronic Paroxysmal atrial fibrillation chronic Acute kidney injury resolved Urinary tract infection reso lved Allergic rhinitis acute Atrial fibrillation acute BPH (benign prostatic hyperplasia) acute Debility acute Encephalopathy acute GERD (gastroesophageal reflux disease) acute Pneumonia acute Primary biliary cirrhosis ac gem Right ureteral stone acute Asthma chronic Glaucoma chronic Urinary tract infection reso lved Aortic stenosis chronic Atherosclerosis of coronary artery of [place] heart without angina pectoris chronic Paroxysmal atrial fibrillation chronic Sinus bradycardia chronic [facility] Work Phone: Evaluation note* Diagnosis Primary open angle glaucoma (POAG) of both eyes, severe stage [facility] Diagnosis Primary open angle glaucoma (POAG) of both eyes, severe stage [facility] Diagnosis Redness of both eyes- Primary Primary open angle glaucoma (POAG) of both eyes, 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 Epiretinal membrane (ERM) of left eye Band keratopathy, bilateral [facility] Additional Instructions Right lower gingival bleeding controlled with TXA. Platelets 115. Discussed with cardiology may hold your baby aspirin and Eliquis. soft foods. Soft toothbrush avoid brushing the right lower teeth area at this time. Follow-up with your doctors. Return if any worsening symptoms.[facility] Work Phone: Hospital Discharge instructions Additional Instructions Follow-up with your PCP in 1 week if no improvement of your pain, ice the area, elevate to help with swelling, return for any other concerns. Take Tylenol as needed for your pain. [facility] Work Phone: Reason for referral (narrative)No reason for referral information availableWKettering [facility] Work Phone: Chief Complaint and Reason for Visit Chief Complaint AORTIC STENOSIS/SOB AORTIC STENOSIS/SOB 6 MO F/U (NN PT) Hospital FU 2 M FU BP CK, BROUGHT CUFF 6 wk FU LEFT KNEE xray NN PT ? new onset atrial fib per MMM/L.[place] E ORDERS Reason for Visit Atherosclerosis of c oronary artery of [place] heart without angina pectoris Bradycardia Presence of stent in coronary artery Obesity Restrictive airway disease Asthma Vitamin D deficiency Asthma BPH (benign prostatic hyperplasia) Dizziness Essential hypertension Iron deficiency anemia Asthma New onset atrial fibrillation Atherosclerosis of coronary artery of [place] heart without angina pectoris Hyperlipidemia Chief Complaint 6 MO F/U (NN PT) Hospital FU 2 M FU BP CK, BROUGHT CUFF 6 wk FU LEFT KNEE xray NN PT ? new onset atrial fib per MMM/L.[place] E ORDERS NEW ONSET ATRIAL FIBRILLATION Reason for Visit Atherosclerosis of c oronary artery of [place] heart without angina pectoris Bradycardia Presence of stent in coronary artery Obesity Restrictive airway disease Asthma Vitamin D deficiency Asthma BPH (benign prostatic hyperplasia) Dizziness Essential hypertension Iron deficiency anemia Asthma New onset atrial fibrillation Atherosclerosis of coronary artery of [place] heart without angina pectoris Hyperlipidemia Chief Complaint [...] Complaint 5 M FU E ORDER gi [facility] ER FU EORDERS BP CHECK Reason for Visit BPH (benign prostati c hyperplasia) Essential hypertension Hyperlipidemia Memory impairment Physical debility Hypertension Chief Complaint 5 M FU E ORDER gi [facility] ER FU EORDERS BP CHECK 9 M FU (NN PT 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 FIB NOSEBLEED [facility] FU nosebleed 6 M FU COUGH Reason for Visit Advanced directives, counseling/discussion Essential hypertension Glaucoma Hyperlipidemia Memory impairment Extensor tenosynovitis of right wrist Essential hypertension Glaucoma Psoriasis Thrombocytopenia Aortic stenosis Atherosclerosis of coronary artery of [place] heart without angina pectoris Essential hypertension Hyperlipidemia New onset atrial fibrillation Chief Complaint RT WRIST RIGHT WRIST A. FIB NOSEBLEED [facility] FU nosebleed 6 M FU COUGH ACUTE [facility] FU - COVID DAY 7 CHEST XRAY Reason for Visit Extensor tenosynovit is of right wrist Essential hypertension Glaucoma Psoriasis Thrombocytopenia Aortic stenosis Atherosclerosis of coronary artery of [place] heart without angina pectoris Essential hypertension Hyperlipidemia New onset atrial fibrillation COVID-19 Asthma Essential hypertension Hyperlipidemia Chief Complaint 5 M FU Bradycardia, unspecified FU PER [facility] SEE CLINICAL NOTE NSTEMI, UTI, SEPSIS Reason for Visit Asthma Essential hypertension Hyperlipidemia Memory impairment COVID-19 Aortic stenosis Atherosclerosis of coronary artery of [place] heart without angina pectoris Hyperlipidemia Sinus bradycardia [...] Aortic stenosis Atherosclerosis of coronary artery of [place] heart without angina pectoris Hyperlipidemia Sinus bradycardia [...] N STEMI WITH UTI & PNEUMONIA S/P [facility] 12/11 Reason for Visit COVID-19 Aortic stenosis Atherosclerosis of coronary artery of [place] heart without angina pectoris Paroxysmal atrial fibrillation Sinus bradycardia Aortic stenosis Paroxysmal atrial fibrillation Acute kidney injury Urinary tract infection Allergic rhinitis Atrial fibrillation BPH (benign prostatic hyperplasia) Debility Encephalopathy GERD (gastroesophageal reflux disease) Pneumonia Primary biliary cirrhosis Right ureteral stone Asthma Glaucoma Urinary tract infection Aortic stenosis Atherosclerosis of coronary artery of [place] heart without angina pectoris Paroxysmal atrial fibrillation Sinus bradycardia Chief Complaint Admit Date CONCERN FOR PINKEYE August 09, 2024 1:15pm 3 M FU [...] 1 :53pm Atherosclerosis of coronary artery of [place] heart without angina pectoris October 23, 2024 [...] 1 :53pm Atherosclerosis of coronary artery of [place] heart without angina pectoris October 23, 2024 [...] 1 :53pm Atherosclerosis of coronary artery of [place] heart without angina pectoris October 23, 2024 [...] Back in a-fib, see clinical notes Devyn Petit ne 2024 2:15pm Reason for Visit Admit Date Anemia October 23, 2024 1 :53pm Aortic stenosis October 23, 2024 1 :53pm Atherosclerosis of coronary artery of [place] heart without angina pectoris October 23, 2024 [...] 2:15p m Atherosclerosis of coronary artery of [place] heart without angina pectoris February 19, 2025 2:15pm CHF (congestive heart failure) February 19, 2025 2:15pm Hyperlipidemia February 19, 2025 2:15p m Paroxysmal atrial fibrillation February 19, 2025 2:15pm Sinus bradycardia February 19, 2025 2:15p m Chief Complaint Admit Date 3 M FU November 15, 2024 3:01pm covid test November 30, 2024 1:3 6pm 6 M FU December 14, 2024 1:2 9pm SWALLOWING CONCERNS January 02, 2025 12: 43pm 3 M FU February 14, 2025 2:05p m Back in a-fib, see clinical notes Devyn Petit ne 2024 2:15pm AFIB March 05, 2025 10:4 8am E-ORDER March 07, 2025 1:34 pm ANKLE March 10, 2025 4:05 pm Reason for Visit Admit Date Swallowing disorder November 15, 2024 3:01pm Anemia [...] 2:15p m Atherosclerosis of coronary artery of [place] heart without angina pectoris February 19, 2025 [...] Will Yes July 23 2:06pm Power of Grey Roll Worker Yes July 23, 2021 2:06pm Documents on File Type Date Recorded Patient Dependency Counselor Expl anation Advance Directive(s) 01/15/2016 12:48 PM Advance Directive Response Recorded Date/ Time Living Will Yes July 23 1:06pm Power of Grey Roll Worker Yes July 23, 2021 1:06pm Advance Directive Response Recorded Date/ Time Name of Medical Power of Grey Roll Worker SHAWNEE LEIST August 24, 2022 6:11am Living Will Yes August 24 6:11am Power of Grey Roll Worker Yes August 24, 2022 6:11am Advance Directive Response Recorded Date/ Time Name of Medical Power of Grey Roll Worker SHAWNEE EDGART January 22, 2023 10:29am Living Will Yes January 22, 2023 10 :29am Power of Grey Roll Worker Yes January 22, 2023 10:29am Advance Directive Response Recorded Date/ Time Name of Medical Power of Grey Roll Worker SHAWNEE EDGART January 22, 2023 10:29am Name of Medical Power of Grey Roll Worker SHAWNEE EDGART- ; AAKASH RUST- SON March 12, 2023 12:24pm Living Will Yes March 12, 2023 12:24pm Power of Grey Roll Worker Yes March 12 12:24pm Advance Directive Response Recorded Date/ Time Name of Medical Power of Grey Roll Worker SHAWNEE LEIST January 22, 2023 10:29am Name of Medical Power of Grey Roll Worker SHAWNEE LEIST- ; AAKASH RUST- SON March 12, 2023 12:24pm Name of Medical Power of Grey Roll Worker shawnee leist March 21, 2023 7:58pm Living Will Yes March 21, 2023 7 :58pm Power of Grey Roll Worker Yes March 21, 2023 7:58pm Advance Directive Response Recorded Date/ Time Name of Medical Power of Grey Roll Worker SHAWNEE LEIST January 22, 2023 10:29am Name of Medical Power of Grey Roll Worker SHAWNEE LEIST- ; AAKASH RUST- SON March 12, 2023 12:24pm Name of Medical Power of Grey Roll Worker present March 25, 2023 11:31am Name of Medical Power of Grey Roll Worker --SHAWNEE April 22, 2023 8:23pm Living Will Yes April 22, 2023 8:23pm Power of Grey Roll Worker Yes April 22 8:23pm Name of Medical Power of Grey Roll Worker shawnee leist March 21, 2023 7:58pm Advance Directive Response Recorded Date/ Time Name of Medical Power of Grey Roll Worker SHAWNEE RUST December 02, 2023 1:37pm Living Will Yes December 02, 2023 1:37pm Power of Grey Roll Worker Yes December 01 1:37pm Advance Directive Response Recorded Date/ Time Name of Medical Power of Grey Roll Worker SHAWNEE RUST December 02, 2023 5:24pm Living Will Yes December 02, 2023 5:24pm Power of Grey Roll Worker Yes December 01 5:24pm Advance Directive Response Recorded Date/ Time Name of Medical Power of Grey Roll Worker SHAWNEE RUST December 02, 2023 5:24pm Name of Medical Power of Grey Roll Worker Shawnee Rust, spouse December 09, 2023 12:01pm Name of Medical Power of Grey Roll Worker ON FILE December 20, 2023 10:35am Living Will Yes December 20, 2023 10:35am Power of Grey Roll Worker Yes December 19 10:35am Documents on File Type Date Recorded Patient Dependency Counselor Expl anation Advance Directive(s) 01/15/2016 12:48 PM Advance Directive Response Recorded Date/ Time Living Will Yes December 20, 2023 10:35am Power of Grey Roll Worker Yes December 19 10:35am Advance Directive Response Recorded Date/ Time Living Will Yes December 20, 2023 10:35am Do you have a Healthcare Power of Grey Roll Worker? Yes December 20, 2023 10:35am Advance Directive Response Recorded Date/ Time Living Will Yes December 20, 2023 10:35am Do you have a Healthcare Power of Grey Roll Worker? Yes December 20, 2023 10:35am Do you have a Healthcare Power of Grey Roll Worker? Yes March 10, 2025 4:22pm Name of Medical Power of Grey Roll Worker shawnee March 10, 2025 4:22pm Reason for Referral Specialty Diagnoses / Procedures Referred By Kit buckner Referred To Contact Joist Setter Diagnoses Primary open angle glaucoma (POAG) of both eyes, severe stage Procedures CONSULT TO [facility] Shawn Shea MD [address] [place] [address] [facility] [address] [place] [address] Referral ID Status Reason Start Date Expiration Date Visits Requested Visits Authorized [id number] Ref Not Required PCP Requested Referral 03/12/2024 [...] or prosecute any alcohol or drug abuse patient.[facility] the event this information is protected by the Federal Confidentiality of Alcohol and Drug Abuse Patient Records regulations: The Federal rules restrict any use of the information to criminally investigate or prosecute any alcohol or drug abuse patient.[facility] the event this information is protected by the Federal Confidentiality of Alcohol and Drug Abuse Patient Records regulations: The Federal rules restrict any use of the information to criminally investigate or prosecute any alcohol or drug abuse patient.[facility] the event this information is protected by the Federal Confidentiality of Alcohol and Drug Abuse Patient Records regulations: The Federal rules restrict any use of the information to criminally investigate or prosecute any alcohol or drug abuse patient.[facility] the event this information is protected by the Federal Confidentiality of Alcohol and Drug Abuse Patient Records regulations: The Federal rules restrict any use of the information to criminally investigate or prosecute any alcohol or drug abuse patient.[facility] the event this information is protected by the Federal Confidentiality of Alcohol and Drug Abuse Patient Records regulations: The Federal rules restrict any use of the information to criminally investigate or prosecute any alcohol or drug abuse patient.[facility] the event this information is protected by the Federal Confidentiality of Alcohol and Drug Abuse Patient Records regulations: The Federal rules restrict any use of the information to criminally investigate or prosecute any alcohol or drug abuse patient.[facility] the event this information is protected by the Federal Confidentiality of Alcohol and Drug Abuse Patient Records regulations: The Federal rules restrict any use of the information to criminally investigate or prosecute any alcohol or drug abuse patient.[facility] the event this information is protected by the Federal Confidentiality of Alcohol and Drug Abuse Patient Records regulations: The Federal rules restrict any use of the information to criminally investigate or prosecute any alcohol or drug abuse patient.[facility] the event this information is protected by the Federal Confidentiality of Alcohol and Drug Abuse Patient Records regulations: The Federal rules restrict any use of the information to criminally investigate or prosecute any alcohol or drug abuse patient.[facility] the event this information is protected by the Federal Confidentiality of Alcohol and Drug Abuse Patient Records regulations: The Federal rules restrict any use of the information to criminally investigate or prosecute any alcohol or drug abuse patient.[facility] the event this information is protected by the Federal Confidentiality of Alcohol and Drug Abuse Patient Records regulations: The Federal rules restrict any use of the information to criminally investigate or prosecute any alcohol or drug abuse patient.[facility] Hospital[facility] the event this information is protected by the Federal Confidentiality of Alcohol and Drug Abuse Patient Records regulations: The Federal rules restrict any use of the information to criminally investigate or prosecute any alcohol or drug abuse patient.[facility] the event this information is protected by the Federal Confidentiality of Alcohol and Drug Abuse Patient Records regulations: The Federal rules restrict any use of the information to criminally investigate or prosecute any alcohol or drug abuse patient.[facility] the event this information is protected by the Federal Confidentiality of Alcohol and Drug Abuse Patient Records regulations: The Federal rules restrict any use of the information to criminally investigate or prosecute any alcohol or drug abuse patient.[facility] the event this information is protected by the Federal Confidentiality of Alcohol and Drug Abuse Patient Records regulations: The Federal rules restrict any use of the information to criminally investigate or prosecute any alcohol or drug abuse patient.[facility] Reason for Visit (unrecogniz ed section and content) Reason Comments Refill Request Reason Comments New Reason Comments Primary Open Angle Glaucoma Follow Up Reason Comments Medication Problem Reason Onset Date Comments Refill Request 03/10/2024 Reason Comments Primary Open Angle Glaucoma Follow Up Reason Comments Consult to [facility] Reason Comments Follow Up Reason Comments Primary Open Angle Glaucoma FOLLOW UP Pseudophakia Follow Up Reason Comments Conjunctivitis Evaluation Reason Comments follow up from 07/2025 Reason Comments Primary Open Angle Glaucoma Follow Up Se radha stage ou Pseudophakia Care Teams (unrecognized sec tion and content) Spring Intern Relationship Specialty Start Date End Date Manuel Logan MD [address] [facility] [place] [address] PCP - General Family Medicine 12/08/18 Tristan Montana MD Specialty Office Machine Servicer Cardiology 07/15/16 Team Status: Active Member Role [...] MD Primary Care Provider Active Dr. Rolan Peañ DO Attending Provider, Emergency Provide r Active Team Status: Inactive Member Role Status Dates Dr. Addi Mario MD Primary Care Provider Active Dr. John Cool MD Attending Provider, Referring Pro vider Active Team Status: Inactive Member Role Status Dates Dr. Addi Mario MD Primary Care Provider, Refer ring Provider Active Ailin Sharma PREVENTIVE MEDICINE PHYSICIAN, PREVENTIVE MEDICINE PHYSICIAN-C Attending Provider Active Team Status: Inactive Member [...] Miranda MD Attending Provider, Emergency Provider Active Spring Intern Relationship Specialty Start Date End Date Manuel Logan MD [address] [place] [address] PCP - General Family Medicine 12/08/18 Tristan Montana MD Specialty Office Machine Servicer Cardiology 07/15/16 Spring Intern Relationship Specialty Start Date End Date Manuel Logan MD [address] [place] [address] PCP - General Family Medicine 12/08/18 Tristan Montana MD Specialty Office Machine Servicer Cardiology 07/15/16 Spring Intern Relationship Specialty Start Date End Date Manuel Logan MD [address] [place] [address] PCP - General Family Medicine 12/08/18 Tristan Montana MD Specialty Office Machine Servicer Cardiology 07/15/16 Spring Intern Relationship Specialty Start Date End Date Manuel Logan MD [address] [place] [address] PCP - General Family Medicine 12/08/18 Tristan Montana MD Specialty Office Machine Servicer Cardiology 07/15/16 Team Status: Inactive Member Role [...] Primary Care Provider Active Dr. Antonio James DO Emergency Provider Active Dr. Miguelito Laguna MD Admit Provider, Other Pro vider Active Dr. Vanessa Simmons MD Attending Provider, Other Provid er Active Dr. Klaudia Gonzales MD Other Provider Active Dr. Darien Lee MD Other Provider Active Team Status: Active Member Role Status Dates Dr. Addi Mario MD Primary Care Provider Active Dr. Antonio James DO Emergency Provider Active Dr. Miguelito Laguna MD Admit Provider, Other Pro vider Active Dr. Vanessa Simmons MD Other Provider Active Dr. Klaudia Gonzales MD Attending Provider, Other Prov ider Active Dr. Darien Lee MD Other Provider Active Team Status: Inactive Member Role Status Dates Dr. Addi Mario MD Primary Care Provider Active Dr. Antonio James DO Emergency Provider Active Dr. Miguelito Laguna MD Admit Provider, Other Pro vider Active Dr. Vanessa Simmons MD Other Provider Active Dr. Klaudia Gonzales MD Attending Provider Active Dr. Darien Lee MD Other Provider Active Team Status: Inactive Member Role Status Dates Dr. Addi Mario MD Primary Care Provider, Refer ring Provider Active [employer] PREVENTIVE MEDICINE PHYSICIAN, PREVENTIVE MEDICINE PHYSICIAN-C Attending Provider Active Team Status: Active Member [...] MD Admit Provider, Attending Provid er Active Spring Intern Relationship Specialty Start Date End Date Manuel Logan MD [address] [place], [place] [id number] PCP - General Family Medicine 12/08/18 Tristan Montana MD Specialty Office Machine Servicer Cardiology 07/15/16 Spring Intern Relationship Specialty Start Date End Date Manuel Logan MD [address] [place], [place] [id number] PCP - General Family Medicine 12/08/18 Tristan Montana MD Specialty Office Machine Servicer Cardiology 07/15/16 Spring Intern Relationship Specialty Start Date End Date Manuel Logan MD [address] [place], [place] [id number] PCP - General Family Medicine 12/08/18 Tristan Montana MD Specialty Office Machine Servicer Cardiology 07/15/16 Spring Intern Relationship Specialty Start Date End Date Manuel Logan MD [address] [place], [place] [id number] PCP - General Family Medicine 12/08/18 Tristan Montana MD Specialty Office Machine Servicer Cardiology 07/15/16 Spring Intern Relationship Specialty Start Date End Date Manuel Logan MD [address] [place] [address] PCP - General Family Medicine 12/08/18 Tristan Montana MD Specialty Office Machine Servicer Cardiology 07/15/16 Spring Intern Relationship Specialty Start Date End Date Manuel Logan MD [address] [place] [address] PCP - General Family Medicine 12/08/18 Tristan Montana MD Specialty Office Machine Servicer Cardiology 07/15/16 Spring Intern Relationship Specialty Start Date End Date Manuel Logan MD [address] [address] PCP - General Family Medicine 12/08/18 Tristan Montana MD Specialty Office Machine Servicer Cardiology 07/15/16 Spring Intern Relationship Specialty Start Date End Date Manuel Logan MD [address] [place] [address] PCP - General Family Medicine 12/08/18 Tristan Montana MD Specialty Office Machine Servicer Cardiology 07/15/16 Team Status: Active Member Role Status Dates Dr. Addi Mario MD Primary Care Provider Active Team Status: Inactive Member Role Status Dates Dr. dAdi Mario MD Primary Care Provider Active Start: August 09, 2024 End: August 09, 2024 Dr. Addi Mario MD Referring Provider Active Start: August 09, 2024 End: August 09, 2024 Souleymane LUEVANO PA Attending Provider Active Sta rt: [...] 2024 End: December 14, 2024 Ailin Sharma PREVENTIVE MEDICINE PHYSICIAN, PREVENTIVE MEDICINE PHYSICIAN-C Attending Provider Active Start: December 14, 2024 [...] Inactive Member Role Status Dates Dr. Addi aMrio MD Primary Care Provider Active Start: February [...] 2025 End: February 19, 2025 Gretchen Nguyen PREVENTIVE MEDICINE PHYSICIAN, PREVENTIVE MEDICINE PHYSICIAN-C Attending Provider Active Start: February 19, 2025 End: February 19, 2025 Team Status: Active Member Role Status Dates Dr. Addi Mario MD Primary Care Provider Active Start: March 05, 2025 Gretchen Nguyen PREVENTIVE MEDICINE PHYSICIAN, PREVENTIVE MEDICINE PHYSICIAN-C Attending Provider Active Start: March 05, 2025 Gretchen Nguyen NP, PREVENTIVE MEDICINE PHYSICIAN-C Referring Provider Active Start: March 05, 2025 Team Status: Active Member Role Status Dates Dr. Addi Mario MD Primary Care Provider Active Start: March 07, 2025 Gretchen Nguyen PREVENTIVE MEDICINE PHYSICIAN, PREVENTIVE MEDICINE PHYSICIAN-C Attending Provider Active Start: March 07, 2025 Gretchen Nguyen NP, PREVENTIVE MEDICINE PHYSICIAN-C Referring Provider Active Start: March 07, 2025 Team Status: Inactive Member Role Status Dates Dr. Addi Mario MD Primary Care Provider Active Start: March 10, 2025 End: March 10, 2025 Dr. Rolan Peña DO Emergency Provider Active Start : March 10, 2025 End: March 10, 2025 Team Status: Inactive Member Role Status Dates Dr. Addi Mario MD Primary Care Provider Active Start: March 07, 2025 End: March 07, 2025 Gretchen Nguyen NP, PREVENTIVE MEDICINE PHYSICIAN-C Attending Provider Active Start: March 07, 2025 End: March 07, 2025 Gretchen Nguyen NP, PREVENTIVE MEDICINE PHYSICIAN-C Referring Provider Active Start: March 07, 2025 End: March 07, 2025 (unrecognized sect ion and content) No Status Records FoundNo Status Records Found INFORMATION SOURCE (unrecogn ized section and content) DATE CREATED AUTHOR 01/24/2025 [facility] DATE CREATED AUTHOR AUTHOR'S BHARAT ATJOSÉ MIGUEL 03/16/2025 [facility] FOR RECORDS PERTAINING TO PATIENTS WHO ARE [...] BE BASED ON THE PRIMARY CLINICAL RECORDS. [facility] provides no warranty or guarantee of the accuracy or completeness of information in this document.
[2025-03-17 07:04] VITALS: BP 140/69; PULSE 56; RESP 16; TEMP 36.8; O2SAT 99
== END 2025-03-17 07:06 | disposition home or self-care (01) ==
PROVIDERS: Emergency Provider Emergency Medicine; PCP Internal Medicine; Visit Provider Emergency Medicine
DX: R04.0 Epistaxis (principal); I11.0 Hypertensive heart disease with heart failure; I50.9 Heart failure, unspecified; I48.20 Chronic atrial fibrillation, unspecified; I42.9 Cardiomyopathy, unspecified; I25.10 Atherosclerotic heart disease of native coronary artery without angina pectoris; E78.5 Hyperlipidemia, unspecified; I25.2 Old myocardial infarction; Z79.51 Long term (current) use of inhaled steroids; Z79.899 Other long term (current) drug therapy; Z79.01 Long term (current) use of anticoagulants; Z95.5 Presence of coronary angioplasty implant and graft
CPT/HCPCS: 30901; 99284

== ENCOUNTER 2025-03-17 13:52 | Emergency (ER) | payer MEDICARE, SELFPAY ==
[2025-03-17 13:53] VITALS: BP 149/82; PULSE 62; RESP 18; TEMP 36.8; O2SAT 100; BMI 29.5
--- OUTSIDE RECORDS SUMMARY | 2025-03-17 14:14 | XMS RPT_ITS | CCD ---
Author Organization [facility] Care Team Providers Care Ship'S Officer Name Role Phone Dr. Addi Mario Primary Care Provider [phone] Dr. Woody Montana Referring Provider [phone] Dr. Woody [place] Other Provider Dr. Valentín Krause Attending Provider Dr. Addi Mario Referring Provider [phone] Dr. Woody Montana Attending Provider [phone] Dr. Quentin Beltran Attending Provider Dr. Addi Mario Attending Provider [phone] Zachary DIRECTOR MEDICAL ECONOMICS, DIRECTOR MEDICAL ECONOMICS-Elza Parisi Attending Provider Dr. Jeff Carrero Attending Provider Dr. John Cool Attending Provider Cas LUEVANO, [place] Ava Daniels Attending Provider Dr. dAdi Mario Primary Care Provider [phone] Tristan Montana MD Unavailable Manuel Logan MD Primary Care Provider [phone] Dr. Addi Mario Primary Care Provider [phone] Dr. Addi Mario Referring Provider [phone] Dr. Quentin Beltran Attending Provider [phone] Dr. Addi Mario Attending Provider [phone] Dr. Addi Mario Primary Care Provider Dr. Addi Mario Referring Provider [phone] BASSEM Mireles Attending Provider Unavailab le Travon, Dr. Lopez Attending Provider [phone] Addi Mario Primary Care Provider [phone] Shelbi, Dr. Fontana Referring Provider [phone] Dr. John Cool Attending Provider [phone] Zachary DIRECTOR MEDICAL ECONOMICS, DIRECTOR MEDICAL ECONOMICS-C Ailin Attending Provider Shelbi, Dr. Fontana Attending Provider [phone] Shelbi, Dr. Fontana Primary Care Provider [phone] Shelbi, Dr. Fontana Referring Provider [phone] MD Manuel Gardner Attending Provider [phone] BASSEM Mederos Attending Provider Dr. Addi Mario Primary Care Provider [phone] Shelbi, Dr. Fontana Referring Provider [phone] Shelbi, Dr. Fontana Attending Provider [phone] Nan FREDERICK, Nagapradeep Unavailable Manuel Logan MD Primary Care Provider Nan FREDERICK, Nagapradeep Unavailable Dr. Addi Mario Primary Care Provider [phone] Shelbi, Dr. Fontana Attending Provider [phone] Dr. Addi Mario Referring Provider [phone] Dr. Dash Schmidt Attending Provider [phone] Dr. Antonio James Emergency Provider Dr. Miguelito Laguna Admit Provider Dr. Miguelito Laguna Attending Provider Dr. Miguelito Laguna Other Provider Troy, Dr. Mendez Other Provider Troy, Dr. Mendez Attending Provider Koryael, Dr. Klaudia Perry Other Provider Koryael, Dr. Klaudia Perry Attending Provider Jesus, Dr. Darien Akhtar Other Provider Dr. Addi Mario Primary Care Provider Dr. Addi Mario Referring Provider Tono WOODARD, DIRECTOR MEDICAL ECONOMICS-Elza Rhodes Attending Provider Desmond FREDERICK, Manuel Chang Primary Care Provider Shelbi FREDERICK, Dr. Fontana Primary Care Provider Shelbi FREDERICK, Dr. Fontana Referring Provider [phone] Souleymane Curiel Attending Provider Shelbi FREDERICK, Dr. Fontana Attending Provider [phone] Ava Mederos Attending Provider [phone] Shelbi FREDERICK, Dr. Fontana Primary Care Provider [...] SHEA Attending Unavailable Gretchen Fisher Attending Provider Shelbi FREDERICK, Dr. Fontana Primary Care Provider Shelbi FREDERICK, Dr. Fontana Referring Provider [phone] Patrick DIRECTOR MEDICAL ECONOMICS-C, Gretchen Referring Provider Mariana WILL, Dr. Gongora Emergency Provider Shelbi FREDERICK, Dr. Fontana Primary Care Provider Shelbi FREDERICK, Dr. Fontana Attending Provider [phone] Shelbi FREDERICK, Dr. Fontana Referring Provider [phone] Nan FREDERICK, Dr. Mckay Attending Provider Mariana WILL, Dr. oGngora Attending Provider Keyona WILL, Dr. Valles Emergency Provider [phone] Zachary WOODARD, Ailin Referring Unavailable Quentin Beltran Attending Unavailable Oleghe, Efewongbe Primary Care Unavailable Oleghe, Efewongbe Referring Unavailable Oleghe, Efewongbe Attending Unavailable Oleghe, Efewongbe Primary Care Unavailable Souleymane Curiel Attending Unavailable Oleghe, Efewongbe Referring Unavailable Oleghe, Efewongbe Primary Care Unavailable Oleghe, Efewongbe Referring Unavailable Oleghe, Efewongbe Primary Care Unavailable Oleghe, Efewongbe Attending Unavailable Zachary WOODARD, Ailin Attending Unavailable Patrick DIRECTOR MEDICAL ECONOMICS, Gretchen Attending Unavailable Patrick WOODARD, Gretchen Referring Unavailable Oleghe, Efewongbe Primary Care Unavailable Patrick DIRECTOR MEDICAL ECONOMICS, Gretchen Referring Unavailable Patrick DIRECTOR MEDICAL ECONOMICS, Gretchen Attending Unavailable Oleghe, Efewongbe Primary Care Unavailable Oleghe, Efewongbe Referring Unavailable Oleghe, Efewongbe Attending Unavailable Oleghe, Efewongbe Primary Care Unavailable Oleghe, Efewongbe Referring Unavailable Ava Cardozo Attending Unavailabl e Oleghe, Efewongbe Primary Care Unavailable Oleghe, Efewongbe Referring Unavailable Oleghe, Efewongbe Primary Care Unavailable Ava Cardozo Attending Unavailabl e Oleghe, Efewongbe Referring Unavailable Oleghe, Efewongbe Primary Care Unavailable Oleghe, Efewongbe Attending Unavailable Oleghe, Efewongbe Attending Unavailable Oleghe, Efewongbe Referring Unavailable Oleghe, Efewongbe Primary Care Unavailable Oleghe, Efewongbe Attending Unavailable Oleghe, Efewongbe Referring Unavailable Oleghe, Efewongbe Primary Care Unavailable Hai Rand Attending Unavailable Oleghe, Efewongbe Primary Care Unavailable Oleghe, Efewongbe Referring Unavailable Oleghe, Efewongbe Attending Unavailable Oleghe, Efewongbe Primary Care Unavailable Oleghe, Efewongbe Referring Unavailable Oleghe, Efewongbe Primary Care Unavailable Oleghe, Efewongbe Attending Unavailable Oleghe, Efewongbe Attending Unavailable Oleghe, Efewongbe Referring Unavailable Oleghe, Efewongbe Primary Care Unavailable Zachary DIRECTOR MEDICAL ECONOMICS, Ailin Referring Unavailable Quentin Beltran Attending Unavailable Oleghe, Efewongbe Primary Care Unavailable Oleghe, Efewongbe Referring Unavailable Gretchen Nguyen NP Attending Unavailable Oleghe, Efewongbe Primary Care Unavailable Oleghe, Efewongbe Referring Unavailable Oleghe, Efewongbe Attending Unavailable Oleghe, Efewongbe Primary Care Unavailable Oleghe, Efewongbe Referring Unavailable Oleghe, Efewongbe Primary Care Unavailable Zachary WOODARD, Ailin Attending Unavailable Zachary WOODARD, Ailin Attending Unavailable Patrick WOODARD, Gretchen Attending Unavailable Gretchen Nguyen NP Referring Unavailable Oleghe, Efewongbe Primary Care Unavailable Rolan Peña Attending Unavailable Oleghe, Efewongbe Primary Care Unavailable Zachary WOODARD, Ailin Attending Unavailable Oleghe, Efewongbe Referring Unavailable Oleghe, Efewongbe Primary Care Unavailable Oleghe, Efewongbe Referring Unavailable Oleghe, Efewongbe Attending Unavailable Oleghe, Efewongbe Primary Care Unavailable Woody Montana Attending UnavailGretchen Bustamante NP Referring Unavailable Oleghe, Efewongbe Primary Care Unavailable Zachary WOODARD, Ailin Referring Unavailable Quentin Beltran Attending Unavailable Oleghe, Efewongbe Primary Care Unavailable Ailin Sharma NP Consulting Unavailable Oleghe, Efewongbe Primary Care Unavailable Dash Schmidt Attending Unavailable Ava Cadrozo Attending UnavailAva Major Referring Unavailabl e Oleghe, Efewongbe Primary Care Unavailable Allergies Allergy Classification Reported Allergen(s) Allergy Type Date of Onset Reaction(s) Facility amLODIPine (1 source) amLODIPine Drug Allergy 6 Other: See Comments [facility] HMG-CoA Reductase Inhibitors (statins) (1 source) atorvastatin Drug Allergy 1 Intolerance [facility] Metoprolol (1 source) Metoprolol Drug Allergy 4 Unknown [facility] Mold Extract (1 source) Mold Extract Drug Allergy 7 [facility] Penicillins (antibiotic) (1 source) Penicillins Drug Allergy 0 [facility] Work Phone: (20 sources) Metoprolol; 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: [METOPROLOL] Drug Allergy 2 Unknown [facility] (20 sources) Penicillins; 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: [PENICILLINS] Allergy to substance 0 [facility] Work Phone: (16 sources) amLODIPine; 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: [AMLODIPINE] Drug Allergy 6 Other: See Comments [facility] (16 sources) atorvastatin; 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: [ATORVASTATIN CALCIUM] Drug Allergy 1 Intolerance [facility] (16 sources) Mold Extract; 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: [MOLD] Drug Allergy 7 [facility] (16 sources) long haired dogs and cats [Other] Propensity to adverse reactions 7 [facility] (13 sources) beta-Blocking agent; Translations: [BETA-BLOCKERS (BETA-ADRENERGIC BLOCKING AGTS)] Drug Allergy 0 Other: See Comments, Shortness of Breath [facility] (9 sources) bee venom protein (honey bee) Allergy to substance 5 Swelling [facility] (1 source) OTHER; Translations: [OTHER] Propensity to adverse reactions (disorder) 7 [facility] [place] [facility] (1 source) Metoprolol Drug Allergy 5 [facility] (1 source) bee venom protein (honey bee) Drug allergy (disorder) 5 [facility] Medications Current Medications Medication Drug Class(es) Dates Sig (Normalized) Sig (Original) acetaminophen 500 mg oral tablet (20 sources) Start: 12-30-2023 take 2 tablets by mouth every six hours as needed for pain Acetaminophen 500 mg Tablet Active 1000 mg PO EVERY 6 HOURS NEEDED as needed for Pain Score 1-10 0 0 December 30, 2023:00am Start: 12-30-2023 take 1000 mg by mout h every six hours as needed Acetaminophen Active 1000 MG PO EVERY 6 HOURS NEEDED 0 December 30, 2023 12:00am Start: 06-09-2020 End: 12-02-2023 Acetaminophen 325 MG tablet Discontinued 650 mg PO EVERY 6 HOURS NEEDED as needed for Pain Score 1-10/Temp > 100.7 F 0 June 09, 2020 12:00am December 02, 2023 3:06pm Start: 06-09-2020 End: 12-02-2023 take 650 mg by mouth every six hours as needed Acetaminophen Discontinued 650 MG PO EVERY 6 HOURS NEEDED June 09, 2020 12:00am December 02, 2023 3:06pm Albuterol Sulfate 2.5 mg /3 mL (0.083 %) solution for nebulization (9 sources) Start: 01-04-2024 take 2.5 mg by inhalation every four to six hours as needed for wheezing Albuterol Sulfate 2.5 mg /3 mL (0.083 %) solution for nebulization Active 2.5 mg INHALATION EVERY 4-6 HOURS as needed for shortness of breath or wheezing 90 January 04, 2024 12:00am Start: 01-04-2024 take 2.5 mg by inhal ation every four to six hours as needed [...] paula th two times a day. Arthritis Compound (20 sources) Start: 02-08-2022 Arthritis Compound Active 1 NMA TOPICAL DAILY as needed for Pain 60 1 February 08, 2022 2:15pm Diclofenac 3%, Lidocaine [...] Discontin ued TOPICAL as needed for Pain 0 February 03, 2021 2:04pm February 08, 2022 [...] End: 02-03-2021 Arthritis Compound Discontin ued TOPICAL 0 August 06, 2020 1:00am February 03, 2021 [...] mg PO DAILY@0800 December 06, 2016 12:00am heart [employer] On Hold: Nosebleeds. Start: 11-21-2006 ASPIRIN 81 [...] the event of a Fluress shortage, administer [place]-Fluor 1 drop into both eyes as directed for applanation tonometry, OPHT CLINIC MED ORDERS Start: 03-12-2024 End: 03-13-2024 fluorescein-benoxinate 0.3-0 .4 % 1 Drop (FLURESS) Start: 11-07-2023 End: 11-08-2023 fluorescein-benoxinate 0.3-0 .4 % 1 Drop (FLURESS) Start: 07-04-2023 End: 07-05-2023 fluorescein-benoxinate 0.25- 0.4 % 1 Drop (FLURESS) brimonidine tartrate 2 mg/ml / brinzolamide 10 mg/ml ophthalmic suspension (11 sources) Carbonic Anhydrase Inhibitor, alpha-Adrenergic Agonist Start: 12-14-2024 Brinzolamide-Brimonidine (Simbrinza) 1-0.2 % drops,suspension Active 1 NMA OPHTHALMIC DAILY December 14, 2024 12:00am Start: 12-14-2024 Brinzolamide-B rimonidine (Simbrinza) 1-0.2 % drops,suspension Active 1 NMA OPHTHALMIC December 14, 2024 12:00am Start: 11-26-2024 take 1 drop(s) into the eye(s) twice daily brinzolamide-brimonidine (SIMBRINZA) 1%- 0.2 % Ophth Susp Use 1 Drop in both eyes two times a day. 30 mL 5 11/26/2024 Active Budesonide-Formoterol (20 sources) Corticosteroid, beta2-Adrenergic Agonist Start: 12-14-2024 Budesonide-Formoterol (Symbicort) 160-4.5 mcg/actuation HFA aerosol inhaler Active 2 NMA INHALATION TWICE A DAY 1 December 14, 2024 1:44pm Asthma administer with spacer, rinse mouth after each use Start: 12-14-2024 Budesonide-For moterol (Symbicort) 160-4.5 mcg/actuation HFA aerosol inhaler Active 2 NMA INHALATION TWICE A DAY 1 December 14, 2024 1:44pm administer with spacer, rinse mouth after each use Start: 08-02-2024 End: 12-14-2024 Budesonide-Formoterol (Symbi trsih) 160-4.5 mcg/actuation HFA aerosol inhaler Discontinued 2 NMA INHALATION TWICE A DAY 1 August 02, 2024 3:13pm December 14, 2024 1:45pm Asthma administer with spacer, rinse mouth after each [...] 29, 2024 3:49pm August 02, 2024 3:14pm Asthma administer with spacer, rinse mouth after each [...] 29, 2024 10:31am May 29, 2024 3:49pm Asthma administer with spacer, rinse mouth after each [...] 15, 2023 3:45pm May 29, 2024 10:32am Asthma administer with spacer, rinse mouth after each use Start: 08-15-2023 End: 05-29-2024 Budesonide-Formoterol (Symbi trish) 160-4.5 mcg/actuation HFA aerosol inhaler Discontinued 2 NMA INHALATION TWICE A DAY August 15, 2023 3:45pm May 29, 2024 10:32am administer with spacer, rinse mouth after each use Start: 08-15-2023 take 1 puff(s) by [facility] twice daily Budesonide-Formoterol (Symbicort) 160-4. [...] aerosol inhaler Discontinued 2 NMA INHALATION DAILY May 02, 2023 5:56pm August 15, 2023 3:47pm administer with spacer, rinse mouth after each use Start: 05-02-2023 End: 08-15-2023 take 1 puff(s) by mouth once daily Budesonide-Formoterol (Symbicort) 160-4. 5 mcg/actuation HFA aerosol inhaler Discontinued 2 PUFF INHALATION DAILY May 02, 2023 5:56pm August 15, 2023 3:47pm administer with spacer, rinse mouth after each use Start: 05-02-2023 take 1 puff(s) by mo [facility] once daily Budesonide-Formoterol (Symbicort) 160-4. 5 mcg/actuation [...] use Start: 08-04-2022 take 1 puff(s) by mo uth once daily Budesonide-Formoterol (Symbicort) 160-4. 5 mcg/actuation HFA aerosol inhaler Active 2 PUFF INHALATION DAILY August 04, 2022 3:03pm administer with spacer, rinse mouth after each use Start: 08-04-2022 take 1 puff(s) by [facility] once daily Budesonide-Formoterol (Symbicort) 160-4. 5 mcg/actuation HFA aerosol inhaler Active 2 PUFF INHALATION DAILY August 04, 2022 2:03pm administer with spacer, rinse mouth after each use Start: 03-26-2022 End: 08-04-2022 Budesonide-Formoterol (Symbi trish) 160-4.5 mcg/actuation HFA aerosol inhaler Discontinued 2 NMA INHALATION TWICE A DAY 1 March 26, [...] use Start: 11-25-2021 take 1 puff(s) by [facility] twice daily Budesonide-Formoterol (Symbicort) 160-4. 5 mcg/actuation HFA aerosol inhaler Active 2 PUFF INHALATION TWICE A DAY November 25, 2021 9:47am administer with spacer, rinse mouth after each use Start: 11-25-2021 End: 03-26-2022 Budesonide-Formoterol (Symbi trish) 160-4.5 mcg/actuation HFA aerosol inhaler Discontinued 2 NMA INHALATION TWICE A DAY 1 3 November 25, 2021 1:00am March 26, 2022 [...] TWICE A DAY 1 November 25, 2021 12:00am March 26, 2022 [...] 2 NMA INHALATION TWICE A DAY 1 3 November 23, 2021 1:00am November 25, 2021 [...] each use take 2 puff(s) by mo uth once [...] tablet (20 sources) Vitamin D Start: 11-20-19 21 take 1 tablet by mouth once daily Cholecalciferol (Vitamin D3) 50 mcg (2,000 unit) tablet Active 50 ug PO DAILY November 19, 2020 1:00am Supplement Disability Placard (20 sources) Start: 12-02-19 22 Disability Placard Active 0 .Route .MEDSUPPLY 1 December 01, 2021 11:10am Expires 12/01/2026 Start: 12-01-2021 Disability Alirio card Active 0 .Route .MEDSUPPLY 1 0 December 01, 2021 12:00am chronic respiratory distress J96.10 Expires 12/01/2026 Start: 12-01-2021 Disability Alirio card Active 0 .Route .MEDSUPPLY 1 December 01, 2021 12:00am Expires 12/01/2026 Start: [...] TWICE DAILY NEEDED as needed for Constipation 0 June 09, 2020 12:00am August 05, 2020 3:27pm Start: 06-09-2020 End: 08-05-2020 take 2 tablets by mouth twice daily as needed Sennosides-Docusate Sodium Discontinued 2 TABLET PO TWICE DAILY NEEDED June 09, 2020 12:00am August 05, 2020 3:27pm furosemide 40 mg oral tablet (20 sources) Loop Diuretic Start: 03-17-2025 take 1 tablet by mouth once daily Furosemide 40 mg tablet Active 40 mg PO DAILY March 17, 2025 12:00am Start: 10-23-2024 End: 03-17-2025 take 1 tablet by mouth once daily Furosemide 20 mg tablet Discontinued 20 mg PO daily 90 3 November 15, 2024 4:31pm March 17, 2025 5:48am Start: 12-08-2023 End: 10-23-2024 take 1 tablet by mouth once daily Furosemide 40 mg tablet Discontinued 40 mg PO daily 90 3 August 28, 2024 1:53pm October 23, 2024 3:31pm edema ibuprofen 200 mg oral tablet (16 sources) Nonsteroidal Anti-inflammatory Drug Start: 11-02-2016 take 1 tablet by mouth twice daily [...] sources) Prostaglandin Analog, Rho Kinase Inhibitor Start: 12-02-2023 Netarsudil-Latano prost (Rocklatan) 0.02-0.005 % drops Active 1 NMA OPHTHALMIC AT BEDTIME December 02, 2023 12:00am Eye drops INSTILL 1 DROP INTO EACH EYE AT [...] FACE, EYES, EYELIDS, AND DEEP FOLD AREAS. Psgtueyu-Inj-Wc-L ycopen-Lutein (Centrum Silver) 0.4 mg-300 mcg- 250 mcg tablet (13 sources) Start: 12-02-2023 take 1 tablet by mouth once daily Nxewpapl-Nnn-Im-Ly copen-Lutein (Centrum Silver) 0.4 mg-300 mcg- 250 mcg tablet Active 1 {tbl} PO DAILY December 02, 2023 12:00am supplement Start: 12-02-2023 take 1 tablet by paula th once daily Kppwdlss-Cub-Ez-Lycopen-Lutein (Centrum Silver) 0.4 mg-300 mcg- 250 mcg tablet Active 1 {tbl} PO DAILY December 02, 2023 12:00am Start: 12-02-2023 take 1 tablet by paula th once daily Gtevlxrn-Frz-Wr-Lycopen-Lutein (Centrum Silver) 0.4 mg-300 mcg- 250 mcg [...] Nebulizer System) device Active 0 .Route 1 0 April 30, 2023 5:24pm Moderate persistent asthma Moderate persistent asthma, uncomplicated As directed Start: 04-30-2023 Nebulizer And Compressor (Portable Nebulizer System) device Active 0 .Route 1 April 30, 2023 5:24pm As directed Start: 04-30-2023 End: 04-30-2023 Nebulizer And Compressor (Po rtable Nebulizer System) device Discontinued 0 .Route 1 0 April 30, 2023 12:00am April 30, 2023 5:24pm Moderate persistent asthma Moderate persistent asthma, uncomplicated As directed Start: 04-30-2023 End: 04-30-2023 Nebulizer [...] February 14, 2025 4:35pm Start: 12-30-2023 End: 03-28-2025 take 1 tablet by mouth twice daily at mealtime Ursodiol 250 mg tablet Discontinued 500 mg PO TWICE DAILY WITH MEALS 360 90 1 September 14, 2024 1:06pm December 14, 2024 1:36pm Start: 12-30-2023 take 500 mg by mouth twice daily at mealtime Ursodiol Active 500 MG PO TWICE DAILY WITH MEALS 0 December 30, 2023 12:00am Start: 12-01-2021 End: 12-30-2023 take 1 tablet by mouth twice daily at mealtime Ursodiol 500 mg tablet Discontinued 0 .ROUTE .COMPLEX 180 3 August 03, 2023 4:55pm December 30, 2023 1:51pm Liver take 1 tablet by mouth twice a day with meals FOR LIVER DISEASE Start: 01-27-2017 take 2 tablets by mo uth twice daily ursodiol (DANNIELLE) 250 mg tablet Take 2 tablets by mouth twice daily. 120 tablet 2 01/27/2017 Active Start: 12-06-2016 End: 12-01-2021 take 1 tablet by mouth twice daily at mealtime Ursodiol 250 mg tablet Discontinued 500 mg PO TWICE DAILY WITH MEALS 180 1 August 25, 2021 4:20pm December 01, 2021 11:32am liver disease Start: 12-06-2016 End: 12-01-2021 take 500 mg by mouth twice daily at mealtime Ursodiol Discontinued 500 MG PO TWICE DAILY WITH MEALS 180 August 25, 2021 4:20pm December 01, 2021 11:32am Comment on above: Take 2 tablets by mo ut twice daily. Completed/Discontinued Medications Medication Drug Class(es) Dates Sig (Normalized) Sig (Original) albuterol 0.83 mg/ml inhalation solution (20 sources) beta2-Adrenergic Agonist Start: 06-08-2023 End: 08-15-2023 take 2.5 mg by inhalation every four hours as needed for wheezing Albuterol Sulfate 2.5 mg /3 mL (0.083 %) solution for nebulization Discontinued 2.5 mg INHALATION Q4H as needed for shortness of breath or wheezing 90 4 June 08, 2023 10:30am August 15, 2023 3:45pm Start: 04-30-2023 End: 06-08-2023 take 2.5 mg by inhalation every four hours as needed for wheezing Albuterol Sulfate 2.5 mg/0.5 mL solution for nebulization Discontinued 2.5 mg INHALATION Q4H as needed for shortness of breath or wheezing 30 4 June 06, 2023 10:36pm June 08, 2023 10:31am Start: 08-06-2021 take 1 puff(s) by in halation every four hours Albuterol Sulfate (Ventolin Hfa) 90 mcg/actuation HFA aerosol inhaler Active 2 PUFF INHALATION Q4H 8.5 August 06, 2021 9:09am Start: 05-25-2019 End: 04-28-2023 Albuterol Sulfate (Ventolin Hfa) 90 mcg/actuation HFA aerosol inhaler Discontinued 2 NMA INHALATION Q4H as needed for Asthma 8.5 2 August 06, 2021 9:09am April 28, 2023 [...] 12:17pm Arthritis Pain Compound 60 CLICK Gm (9 sources) Start: 06-29-2020 End: 07-14-2020 Arthritis Pain Compound 60 C LICK Gm Discontinued 0 NMA TOPICAL TWICE A DAY 60 0 June 29, 2020 12:00am July 14, 2020 1:17pm Please contact the information source for Protocol details. Start: 06-29-2020 End: 07-14-2020 Arthritis Pain Compound 60 C LICK Gm Discontinued 0 NMA TOPICAL TWICE A DAY 60 June 29, 2020 12:00am July 14, 2020 1:17pm Please contact the information source for Protocol details. ascorbic acid 500 mg oral tablet (20 sources) Vitamin C Start: 06-29-2020 End: 08-05-2020 take 1 tablet by mouth once daily Ascorbic Acid (Vitamin C) 500 MG tablet Discontinued 500 mg PO DAILY@1200 0 June 29, 2020 12:00am August 05, 2020 3:27pm Take this is the Ferrous Sulfate every day to increase iron absortion atorvastatin 20 mg oral tablet (20 sources) HMG-CoA Reductase Inhibitor Start: 05-25-2019 End: 10-22-2024 take 1 tablet by mouth at bedtime Atorvastatin 20 mg tablet Discontinued 20 mg PO AT BEDTIME 90 1 May 02, 2024 5:20pm October 22, 2024 3:27pm cholesterol Start: 11-22-2016 End: 05-25-2019 Atorvastatin 40 MG [...] eyes three times a day. 30 mL 11 07/30/2024 01/14/2025 Discontinued (Course of therapy completed) Start: 08-15-2023 End: 12-14-2024 take 1 drop(s) into the eye(s) twice daily Brimonidine 0.1 % drops Discontinued 1 NMA OPHTHALMIC DAILY August 15, 2023 1:00am December 14, 2024 1:36pm Eye drops instill 1 drop into both eyes twice a day Start: 08-15-2023 take 1 drop(s) into the eye(s) twice daily Brimonidine Active 1 DRP OPHTHALMIC DAILY August 15, 2023 1:00am instill 1 drop into both eyes twice a day Start: 06-02-2019 End: 12-29-2022 Brimonidine 5 ML drops Disco ntinued 1 NMA EACH EYE TWICE A DAY June 02, 2019 12:00am December 29, 2022 2:14pm glaucoma Start: 12-06-2016 End: 05-25-2019 Brimonidine 1 DROP [...] 09, 2020 6:50pm August 05, 2020 3:27pm supp Start: 06-09-2020 End: 08-05-2020 take 1 tablet by mouth twice daily at mealtime Calcium Carbonate-Vitamin D3 Discontinued 1 TABLET PO TWICE DAILY WITH MEALS June 09, 2020 6:50pm August 05, 2020 3:27pm carvedilol 3.125 mg oral tablet (20 sources) alpha-Adrenergic Jayden, beta-Adrenergic Jayden Start: 04-20-2024 End: 06-14-2024 Carvedilol 3.125 mg tablet Discontinued 3.125 mg PO .COMPLEX 180 3 April 20, 2024 12:00am June 14, 2024 1:13pm 3.125 mg orally twice daily: this is a dose decrease. 6.25 mg tablets too difficult for pt to cut in half.; must administer with a meal/food Start: 04-19-2024 End: 04-20-2024 take 3.125 mg by mouth twice daily at mealtime Carvedilol 6.25 mg tablet Discontinued 3.125 mg PO TWICE DAILY WITH MEALS 180 1 April 19, 2024 2:12pm April 20, 2024 9:40am Start: 01-22-2024 take 4 tablets by mo uth twice daily at mealtime carvedilol (COREG) 6.25 mg tablet Take 25 mg by mouth two times a day with meals. 01/22/2024 Active Start: 12-08-2023 End: 04-19-2024 take 1 tablet by mouth twice daily at mealtime Carvedilol 6.25 mg tablet Discontinued 6.25 mg PO TWICE DAILY WITH MEALS 180 1 January 09, 2024 5:03pm January 23, 2024 2:12pm cefdinir 300 mg oral capsule (12 sources) Cephalosporin Antibacterial Start: 12-08-2023 End: 12-20-2023 take 1 capsule by mouth twice daily Cefdinir 300 mg capsule Discontinued 300 mg PO TWICE A DAY 10 December 08, 2023 12:00am December 20, 2023 10:51am Antibiotic cetirizine hydrochloride 10 mg oral capsule (20 [...] once daily. ciprofloxacin 500 mg oral tablet (11 sources) Quinolone Antimicrobial Start: 12-21-19 End: 12-30-19 take 1 tablet by mouth twice daily Ciprofloxacin Hcl (Cipro) 500 mg tablet Discontinued 500 mg PO TWICE A DAY 10 0 December 21, 2023 12:00am December 30, 2023 [...] TOPICAL DAILY as needed for rash 60 2 March 24, 2023 5:07pm December 02, 2023 3:07pm Start: 03-24-2023 clobetasol (TE MOVATE) 0.05 % cream apply 1 APPLICATION topically once daily if needed for rash 03/24/2023 Active Start: 05-14-2021 End: 03-24-2023 Clobetasol 0.05 % cream Disc ontinued 1 NMA TOPICAL DAILY as needed for rash 60 2 May 14, 2021 4:25pm March 24, 2023 [...] 02, 2019 12:00am October 23, 2019 2:49pm blood thinner Start: 06-02-2019 End: 08-05-2020 take 1 tablet by mouth once daily Clopidogrel 75 mg tablet Discontinued 75 mg PO DAILY 90 3 October 23, 2019 2:49pm August 05, 2020 3:54pm blood thinner dorzolamide 20 mg/ml ophthalmic solution (18 sources) Carbonic Anhydrase Inhibitor Start: 12-29-2022 End: [...] mg tablet Discontinued 10 mg PO DAILY 90 3 September 15, 2023 5:17pm August 15, 2024 5:12pm heart health Comment on above: TAKE ONE TABLET BY M OUT EVERY DAY famotidine 20 mg oral tablet (20 sources) Histamine-2 Receptor Antagonist Start: 0 End: 4 take 1 tablet by mouth once daily Famotidine 20 mg tablet Discontinued 20 mg PO DAILY 90 August 10, 2023 1:52pm September 10, 2024 1:02pm GERD Start: 06-29-2020 End: 08-06-2020 take 2 tablets by mouth once daily Famotidine 20 MG tablet Discontinued 40 mg PO DAILY 30 June 29, 2020 12:00am August 06, 2020 [...] Discontinued 325 mg PO EVERY OTHER DAY 90 March 12, 2024 12:29pm February 05, 2025 8:44pm Supplement Start: 06-29-2020 End: 07-23-2021 take 1 tablet [...] tablet Discontinued 5 mg PO DAILY 90 3 August 18, 2023 5:34pm September 06, 2024 2:47pm BPH Comment on above: Take one(1) tablet d jumana. Fluad Quad (65yr up)(PF) 60 mcg (15 [...] Discontinued 2 NMA INHALATION TWICE A DAY 13 September 23, 2021 1:00am November 23, 2021 5:21pm Start: 09-23-2021 End: 11-23-2021 take 1 puff(s) by inhalation twice daily Mometasone-Formoterol (Dulera) 200-5 mcg/actuation HFA aerosol inhaler Discontinued 2 PUFF INHALATION TWICE A DAY 13 September 23, 2021 1:00am November 23, 2021 5:21pm 12 hr guaiFENesin 1200 mg extended release oral tablet (13 sources) Start: 06-29-2023 End: 12-30-2023 take 1 tablet by mouth every twelve hours Guaifenesin 1,200 mg tablet extended release 12hr Discontinued 1200 mg PO Q12H 60 June 29, 2023 12:00am December 30, 2023 1:53pm Mucus Start: 06-29-2023 End: 12-30-2023 take 1200 mg by mouth every twelve hours Guaifenesin Discontinued 1200 MG PO Q12H 60 June 29, 2023 12:00am December 30, 2023 1:53pm hydrocortisone 25 mg/ml topical cream (20 sources) Corticosteroid Start: 01-04-2024 End: 03-17-2025 Hydrocortisone 2.5 % cream with perineal applicator Discontinued 1 NMA RC 2 to 4 times per day as needed for hemorrhoids 30 1 January 04, 2024 12:00am March 17, 2025 5:48am Start: 10-16-2013 hydrocortisone 2.5 % cream Apply 1 application to affected area twice daily. 80 g 5 10/16/2013 Active Comment on above: Apply 1 application to affected area twice daily. lisinopril 2.5 mg oral tablet (20 sources) Angiotensin Converting Enzyme Inhibitor Start: 7 End: 0 take 1 tablet by mouth at bedtime Lisinopril 2.5 mg tablet Discontinued 2.5 mg PO AT BEDTIME 90 4 November 06, 2019 3:53pm June 29, 2020 11:56am blood pressure Comment on above: Take 1 tablet by paula th once daily. Take 2.5 mg by mouth once daily. loratadine 10 mg oral tablet (11 sources) Start: 4 End: 4 take 1 tablet by mouth once daily Loratadine (Claritin) 10 mg tablet Discontinued 10 mg PO DAILY December 27, 2023 12:00am December 30, 2023 1:51pm magnesium hydroxide 80 mg/ml oral suspension (20 sources) Start: 9 End: 9 take 500 mg by mouth at bedtime Magnesium Hydroxide 400 MG/5 ML suspension Discontinued 500 mg PO AT BEDTIME June 02, 2019 12:00am June 27, 2019 1:29pm constipation Start: 12-06-2016 End: 05-25-2019 take 1 mL [...] 05, 2020 1:00am January 23, 2024 1:36pm Supplement Start: 06-27-2019 End: 07-14-2020 Magnesium Oxide (Cornejo) 5 00 mg tablet Discontinued 1500 mg PO AT BEDTIME June 27, 2019 12:00am July 14, 2020 1:19pm stool softener Multivitamin capsule (9 sources) Start: 07-24-2020 End: 12-02-2023 Multivitamin capsule Discont inued 1 NMA PO DAILY July 24, 2020 1:00am December 02, 2023 3:08pm Multivitamin tablet (9 sources) Start: 05-25-2019 End: 07-14-2020 Multivitamin tablet Disconti nued 1 {tbl} PO TWICE DAILY WITH MEALS May 25, 2019 12:00am July 14, 2020 1:19pm multivitamin Start: 05-25-2019 End: 07-14-2020 Multivitamin tablet Disconti nued 1 {tbl} PO TWICE DAILY WITH MEALS May 25, 2019 12:00am July 14, 2020 1:19pm netarsudil 0.2 mg/ml ophthalmic solution (20 sources) Rho Kinase Inhibitor Start: 06-06-2020 End: 08-15-2023 take 0.02 drop(s) into the eye(s) once daily Netarsudil 0.02 % drops Discontinued 1 NMA OPHTHALMIC DAILY February 03, 2021 2:00pm August 15, 2023 3:46pm glaucoma Start: 06-02-2019 End: 08-29-2019 take 2.5 mL into the eye(s) once daily as needed Netarsudil 2.5 ML drops Discontinued 1 NMA EACH EYE DAILY NEEDED June 02, 2019 12:00am August 29, 2019 3:16pm glaucoma Nirmatrelvir-Ritonavir (Paxlovid) 300 mg (150 mg x 2)-100 mg tablets,dose pack (8 sources) Start: 11-30-2024 End: 12-14-2024 Nirmatrelvir-Ritonavir (Paxlovid) 300 mg (150 mg x 2)-100 mg tablets,dose pack Discontinued 0 PO .COMPLEX 30 0 November 30, 2024 12:00am December 14, 2024 1:38pm take TWO 150 mg tablets of nirmatrelvir with ONE 100 mg tablet of ritonavir twice daily for 5 days PO Start: 11-30-2024 End: 12-14-2024 Nirmatrelvir-Ritonavir (Paxl ovid) 300 mg (150 mg x 2)-100 mg tablets,dose pack Discontinued 0 PO .COMPLEX 30 November 30, 2024 12:00am December 14, 2024 1:38pm take TWO 150 mg tablets of nirmatrelvir with ONE 100 mg tablet of ritonavir twice daily for 5 days PO nitroglycerin 0.4 mg sublingual tablet (20 sources) Nitrate Vasodilator Start: 11-12-2016 End: 05-01-2024 Nitroglycerin 0.4 mg tablet, sublingual Discontinued 0.4 mg SL every 5 to 15 minutes as needed for chest pain 11 12September 15, 2023 12:29pm May 01, 2024 2:57pm Comment on above: Dissolve 1 tablet un liv the tongue every 5 minutes as needed for Chest Pain (Max of 3 tabs.). nystatin [id number] unt/ml / triamcinolone acetonide 1 mg/ml topical cream (20 sources) Polyene Antifungal, Corticosteroid Start: 07-30-2021 End: 03-01-2022 Nystatin-Triamcinolon e 100,000-0.1 unit/g-% cream Discontinued 1 NMA TOPICAL TWICE A DAY 60 1 July 30, 2021 1:00am March 01, 2022 2:09pm Start: 07-30-2021 End: 03-01-2022 Nystatin-Triamcinolone Disco ntinued 1 APPLIC TOPICAL TWICE A DAY July 30, 2021 1:00am March 01, 2022 2:09pm omeprazole 20 mg delayed release oral tablet (20 sources) Proton Pump Inhibitor Start: 12-06-2016 End: 05-25-2019 Omeprazole 20 MG tablet,delayed release (DR/EC) Discontinued 20 mg PO December 06, 2016 12:00am May 25, 2019 9:40am Start: 11-22-2016 take 1 capsule by mo ut once daily before breakfast omeprazole (PRILOSEC) 20 mg capsule Indications: Atherosclerosis of deering 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 Take 20 mg [...] 11, 2020 12:00am June 29, 2020 11:55am Multiple fractures Unspecified multiple injuries, initial encounter Start: 06-29-2020 End: 06-29-2020 take 1 tablet [...] MG PO EVERY 6 HOURS NEEDED 12 3 June 29, 2020 June 29, 2020 10:55am Start: 06-09-2020 End: 06-29-2020 take 5 mg by mouth every six hours as needed Oxycodone Discontinued 5 MG PO EVERY 6 HOURS NEEDED 12 3 June 09, 2020 3:13pm June 29, 2020 11:55am [...] 8:39am Pediatric Multivitamin No.76 1 EACH tablet,chewable (9 sources) Start: 12-06-2016 End: 05-25-2019 Pediatric Multivitamin No.76 1 EACH tablet,chewable Discontinued December 06, 2016 12:00am May 25, 2019 9:39am polymyxin b 47623 unt/ml / trimethoprim 1 mg/ml ophthalmic solution (14 sources) Dihydrofolate Reductase Inhibitor Antibacterial, Polymyxin-class Antibacterial Start: 08-09-2024 End: 08-16-2024 Polymyxin B Sulf-Trimethoprim 10,000 unit- 1 mg/mL drops Discontinued 1 NMA OPHTHALMIC THREE TIMES A DAY 10 7 0 August 09, 2024 1:00am August 15, 2024 1:00am August 16, 2024 1:09am while awake; do not exceed 6 doses in 24 hours microencapsulated potassium chloride 10 meq extended release oral tablet (20 sources) Start: 12-30-2023 End: 11-15-2024 take 1 tablet by mouth once daily Potassium Chloride 10 mEq tablet,ER particles/crystals Discontinued 10 meq PO daily 90 3 August 28, 2024 1:53pm November 15, 2024 4:33pm With Lasix Start: 12-08-2023 End: 12-30-2023 take 1 capsule by mouth once daily Potassium Chloride 10 mEq capsule, extended release Discontinued 10 meq PO DAILY 30 2 December 08, 2023 12:00am December 30, 2023 1:53pm supplement predniSONE 10 mg oral tablet (20 sources) Start: 06-29-2023 End: 12-30-2024 Prednisone 10 mg tablet Discontinued 10 mg PO daily 30 12 0 December 18, 2024 12:00am December 29, 2024 12:00am December 30, 2024 12:05am take 4 tabs for three days, then 3 tabs for three days, then 2 tabs for three days, then 1 tab for 3 days Start: 01-24-2023 End: 06-29-2023 Prednisone 5 mg tablets,dose pack Discontinued 5 mg PO As Directed 21 0 January 24, 2023 12:00am June 29, 2023 1:07pm Sprain of right wrist Extensor tenosynovitis of right wrist Unspecified sprain of right wrist, initial encounter Other synovitis and tenosynovitis, right forearm right wrist extensor tenosyno see taper instructions Comment on above: take 4 tablets by mo [facility] daily for 3 days then 3 daily for 3 days ... (REFER TO PRESCRIPTION NOTES). crescencio (18 sources) Start: 12-29-2022 End: 08-15-2023 rocklan Discontinued [...] 02, 2019 12:00am January 23, 2024 1:36pm glaucoma Comment on above: Use one (1) drop [...] 19, 2020 1:00am August 15, 2024 5:12pm Supplement Problems Active Problems Problem Classification Problem Date Documented Da te Episodic/Chronic Acute and unspecified renal failure (15 sources) Acute renal failure syndrome; Translations: [Acute [...] Coronary atherosclerosis; Translations: [Atherosclerotic heart disease of deering coronary artery without angina pectoris] Onset: 0 [...] fall, initial encounter] 09-27-2022 Episodic Esophageal disorders (15 sources) Gastroesophageal reflux disease; Translations: [Gastro-esophageal reflux [...] Chronic Immunizations and screening for infectious disease (16 sources) Contact with or exposure to other viral diseases; Translations: [Exposure to COVID-19 virus] 11-30-2024 Episodic Inflammation; infection of eye (except that caused by tuberculosis or sexually transmitteddisease) (12 sources) Blepharitis; Translations: [Squamous blepharitis right eye, upper and lower eyelids] 08-14-2024 Episodic Malaise and fatigue (20 sources) Asthenia; Translations: [Other malaise] Episodic Nutritional deficiencies (20 sources) Vitamin D deficiency; Translations: [Vitamin D deficiency, unspecified] Chronic Osteoarthritis (20 sources) Osteoarthritis; Translations: [Unspecified osteoarthritis, unspecified site] Onset: 7 11-21-2006 Chronic Other aftercare (13 sources) 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; Translations: [prison (current) use of anticoagulants] 10-20-2023 Episodic Other aftercare (3 sources) Long-term current use of diuretic; Translations: [Encounter for therapeutic drug level monitoring] 03-07-2025 Episodic Other aftercare (1 source) Long-term current use of anticoagulant; Translations: [long term care social worker (current) use of anticoagulants] 03-17-2025 Episodic Other and unspecified benign neoplasm (20 sources) History of polyp of colon; Translations: [Personal history of colonic polyps] Onset: 7 Resolved: 7 09-27-2022 Episodic Other circulatory disease (20 sources) Orthostatic hypotension; Translations: [Orthostatic hypotension] 09-27-2022 Episodic Other connective tissue disease (20 sources) Foot pain; Translations: [Pain in right foot] 09-27-2022 Episodic Other connective tissue disease (17 sources) Extensor tenosynovitis of wrist; Translations: [Other synovitis and tenosynovitis, right forearm] 01-24-2023 Episodic Other connective tissue disease (4 sources) Other synovitis and tenosynovitis, right forearm; Translations: [Other tenosynovitis of hand and wrist] 01-24-2023 Episodic Other connective tissue disease (1 source) Pain in right foot; Translations: [Pain in right foot] Onset: 5 Episodic Other eye disorders (2 sources) Bilateral [...] fecal abnormalities] 12-23-2021 Episodic Other gastrointestinal disorders (17 sources) Dysphagia; Translations: [Dysphagia, unspecified] 11-15-2024 Episodic Other gastrointestinal disorders (1 source) Dysphagia, unspecified; Translations: [Dysphagia, unspecified] Onset: 5 Episodic Other inflammatory condition of skin (20 [...] injuries and conditions due to external causes (3 sources) Injury of right foot; Translations: [Unspecified [...] elsewhere classified] Episodic Other lower respiratory disease (15 sources) H/O: asthma; Translations: [Personal history of other diseases of the respiratory system] 04-22-2023 Episodic Other lower respiratory disease (20 sources) Cough; Translations: [Cough] Onset: 7 Resolved: 6 04-22-2023 Episodic Other lower respiratory disease (2 sources) Shortness of breath; Translations: [Shortness of breath] Onset: 5 Episodic Other nervous system disorders (11 sources) Disorder of brain; Translations: [Encephalopathy, unspecified] [...] rhinitis] 09-27-2022 Chronic Other upper respiratory disease (11 sources) Allergic rhinitis; Translations: [Allergic rhinitis, unspecified] 12-08-2023 Chronic Other upper respiratory disease (2 sources) Allergic rhinitis, unspecified; Translations: [Allergic rhinitis, cause unspecified] 12-08-2023 Chronic Other upper respiratory disease (20 sources) Bleeding from nose; Translations: [Epistaxis] 03-21-2023 Episodic Other upper respiratory disease (1 source) Anterior epistaxis; Translations: [Epistaxis] 03-17-2025 Episodic Alexandra-; endo-; and myocarditis; cardiomyopathy (except that caused by tuberculosis or sexually transmitted disease) (13 sources) Cardiomyopathy; Translations: [Cardiomyopathy, unspecified] 12-06-2023 Chronic Pneumonia (except that caused by tuberculosis or sexually transmitted disease) (13 sources) Pneumonia; Translations: [Pneumonia, unspecified organism] 12-08-2023 Episodic Residual codes; unclassified (20 sources) History of colectomy; Translations: [Acquired absence of other specified parts of digestive tract] 09-27-2022 Episodic Residual codes; unclassified (20 sources) Memory impairment; Translations: [Other amnesia] 05-14-2021 Episodic Residual codes; unclassified (10 sources) Other amnesia; Translations: [Memory loss] Episodic Residual codes; unclassified (3 sources) Edema of lower leg ; Translations: [Localized edema] 03-07-2025 Episodic Retinal detachments; defects; vascular occlusion; and retinopathy (2 sources) Epiretinal membrane of left eye; Translations: [Puckering of macula, left eye] 06-01-2023 Chronic Rheumatoid arthritis and related disease (20 sources) Rheumatoid arthritis; Translations: [Rheumatoid arthritis, unspecified] 09-27-2022 Chronic Septicemia (except in labor) (15 sources) Sepsis; Translations: [Sepsis, unspecified organism] 12-02-2023 Episodic Spondylosis; intervertebral disc disorders; other back problems (20 sources) Degeneration of cervical intervertebral disc; Translations: [Other cervical disc degeneration, unspecified cervical region] Onset: 3 Resolved: 7 09-27-2022 Chronic Comment on above: Worst at C5-6 and C6 -7. Sprains and strains (18 sources) Sprain of wrist; Translations: [Unspecified sprain of right wrist, initial encounter] 01-22-2023 Episodic Unclassified (1 source) Anterior epistaxis on Eliquis Unclassified (1 source) Contact with and (suspected) exposure to COVID-19; Translations: [Contact with and (suspected) exposure to COVID-19] Onset: 5 Urinary tract infections (19 sources) Urinary tract infectious disease; Translations: [Urinary tract infection, site not specified] 12-02-2023 Episodic Viral infection (20 sources) Disease caused by 2019-nCoV; Translations: [COVID-19] [...] 7 11-02-2016 Episodic Other upper respiratory infections (17 sources) Sore throat symptom; Translations: [Acute pharyngitis, unspecified] Onset: 5 11-30-2024 Episodic Residual codes; unclassified (11 sources) Flushing; Translations: [Flushing] Onset: 8 Resolved: 7 11-02-2016 Episodic Spondylosis; intervertebral disc disorders; other back problems (20 sources) Chronic low back pain; Translations: [Lumbago with sciatica, unspecified side] Onset: 7 Resolved: 7 12-23-2015 Episodic Results Test Name Value Interpretation Reference Range Facility Emergency Department Summary on 03-17-2025 Emergency Department Summary [facility] Medical Records Department [address] [place] [address] Emergency Department Summary 03/17/25 MR#: [id number] Acct: [id number] Name: JESSEE RUST Rep #: [id number] : 1935 [id number] From: Hai Rand DO PCP: Dr. Addi Mario MD Status:REG ER Location: ED HPI History of Present Illness Chief Complaint: Nosebleed Informant: patient Narrative Narrative: Patient is an 89-year-old male with history of chronic atrial fibrillation on Eliquis. He states he has been having intermittent and recurrent right-sided nosebleeds for the past 3 weeks. He states he was seen by ENT and underwent a cautery procedure roughly a week ago as well. He states that there has been no recent trauma and he denies sick symptoms with nasal congestion and recurrent nose blowing. However he is continue to have intermittent bleeds. He states he was bleeding last night but was able to get under control. However he awoke this morning around 4 AM and had bleeding out of the right nostril that would not resolve with pressure and secondary to this he presents for evaluation. [facility] Medical History Bradycardia Immunity status testing Sore [...] Essential hypertension Atherosclerosis 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 Primary biliary cirrhosis Cholelithiasis without obstruction Hyperlipidemia Home Medications ???Medication ???Instructions ???Recorded ???Last Taken ???Type aspirin 81 mg tablet,delayed 81 mg PO DAILY@0800 [employer] 0 12/06/16 12/19/23 History release Held on [...] #1 ea 04/30/23 Unknown Rx Nebulizer System) apmbcaqv-qtg-vpqel acid 0.4 1 tab PO DAILY supplement [...] shortness of breath or wheezing #90 mL cetirizine 10 mg tablet 10 mg PO [...] QHS cholesterol #90 tabs 10/22/24 Unknown Rx potassium chloride 10 mEq 10 meq PO QDAY With Lasix #90 tabs 11/15/24 Unknown Rx tablet,extended release(part/cryst) brinzolamide 1 %-brimonidine 0.2 % 1 drp ophthalmic (eye) DAILY Unknown History eye drops,suspension (Simbrinza) budesonide-formoter ol HFA 160 2 puff inhalation BID Asthma #1 ea 12/14/24 Unknown Rx mcg-4.5 mcg/actuation aerosol inhaler (Symbi (more content not included)... Normal [facility] Anion gap in Serum or Plasma Ordered By: Gretchen Nguyen on 03-14-2025 Anion gap [Moles/Vol] 12 mmol/L 01-31 [facility] BUN/creatinine ratioOrdered By: Gretchen Nguyen on 03-14-2025 Urea nitrogen/Creatinine [Mass ratio] 17.6 mg/mg 07-08 [facility] Basic Metabolic Profile (BMP )on 03-14-2025 GAP 12 Normal 01-31 [facility] Comment on above: Performed By: #### L 500.2500 #### [facility] [address] [place], [place] [address], [address] BUN/CRE 17.6 RATIO Normal 07-08 [facility] Comment on above: Performed By: #### L 500.2500 #### [facility] [address] [place], [address] Calcium [Mass/Vol] 9.4 mg/dL Normal 7.6-11.0 [facility] Comment on above: Performed By: #### L 500.2500 #### [facility] [address] [place], [address] Chloride [Moles/Vol] 100 mmol/L Normal 98-108 [facility] Comment on above: Performed By: #### L 500.2500 #### [facility] [address] [place], [address] CO2 [Moles/Vol] 27.3 mmol/L Normal 21.0-32.0 [facility] Comment on above: Performed By: #### L [id number] #### [facility] [address] [place], [address] Creatinine [Mass/Vol] 1.00 mg/dL Normal 0.70-1.20 [facility] Comment on above: Performed By: #### L 500.2500 #### [facility] [address] [place], [address] GFR/1.73 sq M.predicted among non-blacks MDRD (S/P/Bld) [Vol rate/Area] 72 mL/min/{1.73_m2} Normal >60 [facility] Comment on above: Result Comment: mL/m in/1.73m2 CKD-EPI Creatinine Equation (2020) Performed By: #### L 500.2500 #### [facility] [address] [place], [address] Glucose [Mass/Vol] 98 mg/dL Normal 70-99 [facility] Comment on above: Performed By: #### L 500.2500 #### [facility] [address] [place], [address] Potassium [Moles/Vol] 4.3 mmol/L Normal 3.3-5.1 [facility] Comment on above: Performed By: #### L [id number] #### [facility] [address] [place], [address] Sodium [Moles/Vol] 139 mmol/L Normal 133-145 [facility] Comment on above: Performed By: #### L [id number] #### [facility] [address] [place], [address] Urea nitrogen [Mass/Vol] 18 mg/dL Normal 4-19 [facility] Comment on above: Performed By: #### L 500.2500 #### [facility] [address] [place], [address] Carbon dioxide, total [Moles /volume] in Central venous bloodOrdered By: Gretchen Nguyen on 03-14-2025 CO2 [Moles/Vol] 27.3 mmol/L 21.0-32.0 [facility] Chloride assayOrdered By: Oli Nguyen on 03-14-2025 Chloride [Moles/Vol] 100 mmol/L 98-108 [facility] Glomerular filtration rate ( GFR) estimation/1.73 sq m using serum, plasma, or whole bOrdered By: Gretchen Nguyen on 03-14-2025 GFR/1.73 sq M.predicted among non-blacks MDRD (S/P/Bld) [Vol rate/Area] 72 mL/min/{1.73_m2} >60 [facility] Comment on above: mL/min/1.73m2 CKD-EP I Creatinine Equation (2020) Potassium measurement (mass/ volume)Ordered By: Gretchen Nguyen on 03-14-2025 Potassium (Unsp spec) [Mass/Vol] 4.3 mmol/L 3.3-5.1 [facility] Serum creatinine measurement (mass/volume)Ordered By: Gretchen Nguyen on 03-14-2025 Creatinine [Mass/Vol] 1.00 mg/dL 0.70-1.20 [facility] Serum glucose measurement (m ass/volume)Ordered By: Gretchen Nguyen on 03-14-2025 Glucose [Mass/Vol] 98 mg/dL 70-99 [facility] Serum or plasma calcium tay urement (mass/volume)Ordered By: Gretchen Nguyen on 03-14-2025 Calcium [Mass/Vol] 9.4 mg/dL 7.6-11.0 [facility] Serum or plasma urea nitroge n measurement (mass/volume)Ordered By: Gretchen Nguyen on 03-14-2025 Urea nitrogen [Mass/Vol] 18 mg/dL 4-19 [facility] Sodium levelOrdered By: Shagufta Nguyen on 03-14-2025 Sodium [Moles/Vol] 139 mmol/L 133-145 [facility] Emergency Department Summary on 03-10-2025 Emergency Department Summary [facility] Medical Records Department [address] [place] [address] Emergency Department Summary 03/10/25 MR#: [id number] Acct: [id number] Name: JESSEE RUST Rep #: [id number] : 1935 89 From: Marisol LUEVANO PCP: Dr. Addi Mario MD Status:REG ER Location: ED HPI History of Present Illness Chief Complaint: Lower Extremity Injury Narrative Narrative: Patient resenting today with pain to his right foot after he was practicing balancing exercises Tuesday. He was standing on 1 foot while moving the opposite foot [id number]. He is not of the exact mechanism of injury but reports that after performing these exercises he started to have pain in the right foot. He is able to ambulate but it is painful. He denies any other injury. [facility] Medical History Bradycardia Immunity status testing Sore [...] Essential hypertension Atherosclerosis 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 Primary biliary cirrhosis [...] #1 ea 04/30/23 Unknown Rx Nebulizer System) vggguzbt-vzb-uufjk acid 0.4 1 tab PO DAILY supplement [...] hydrocortisone 2.5 % topical cream 1 applic HI BID-QID PRN 01/04/24 Unknown Rx with perineal [...] tablet u (more content not included)... Normal [facility] Foot min 3 Viewson Foot min 3 Views [facility] Imaging Services [address], [place] [address] Foot min 3 Views MR#: [id number] Acct: [id number] Name: JESSEE RUST Rep #: [id number] : 1935 M 89 From: Vicki Ang PCP: Dr. Addi Mario MD Status: PRE ER Study: Foot min 3 Views Date of Exam: 03/10/25 Exam# [id number] Ordering Dr: Marisol Crum PROCEDURE: FOOT MIN [...] is concern for ankle pathology. Reading Location: [id number] CC: Dr. 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, [address] Calcium [Mass/Vol] 9.3 mg/dL Normal 7.6-11.0 [facility] Comment on above: Performed By: #### L 500.2500, L503.7505 #### [facility] [address] [place], [address] Chloride [Moles/Vol] 103 mmol/L Normal 98-108 [facility] Comment on above: Performed By: #### L 500.2500, L503.7505 #### [facility] [address] [place], [address] CO2 [Moles/Vol] 26.9 mmol/L Normal 21.0-32.0 [facility] Comment on above: Performed By: #### L 500.2500, L503.7505 #### [facility] [address] [place], [address] Creatinine [Mass/Vol] 0.94 mg/dL Normal 0.70-1.20 [facility] Comment on above: Performed By: #### L 500.2500, L503.7505 #### [facility] [address] [place], [address] GAP 11 Normal 5-15 [facility] Comment on above: Performed By: #### L 500.2500, L503.7505 #### [facility] [address] [place], [address] GFR/1.73 sq M.predicted among non-blacks MDRD (S/P/Bld) [Vol rate/Area] 78 mL/min/{1.73_m2} Normal >60 [facility] Comment on above: Result Comment: mL/m in/1.73m2 CKD-EPI Creatinine Equation (2020) Performed By: #### L 500.2500, L503.7505 #### [facility] [address] [place], [address] Glucose [Mass/Vol] 79 mg/dL Normal 70-99 [facility] Comment on above: Performed By: #### L 500.2500, L503.7505 #### [facility] [address] [place], [address] Potassium [Moles/Vol] 4.9 mmol/L Normal 3.3-5.1 [facility] Comment on above: Result Comment: Hemo lysis present, Results??could be affected. ?? Performed By: #### L 500.2500, L503.7505 #### [facility] [address] [place], [address] Sodium [Moles/Vol] 140 mmol/L Normal 133-145 [facility] Comment on above: Performed By: #### L 500.2500, L503.7505 #### [facility] [address] [place], [address] Urea nitrogen [Mass/Vol] 17 mg/dL Normal - [facility] Comment on above: Performed By: #### L 500.2500, L503.4055 #### [facility] [address] [place], [place], [id number] Carbon dioxide, total [Moles /volume] in Central venous bloodOrdered By: Gretchen Nguyen on 03-07-2025 CO2 [Moles/Vol] 26.9 mmol/L 21.0-32.0 [facility] Chloride assayOrdered By: Oli Nguyen on 03-07-2025 Chloride [Moles/Vol] 103 mmol/L 98-108 [facility] Glomerular filtration rate ( GFR) estimation/1.73 sq m using serum, plasma, or whole bOrdered By: Gretchen Nguyen on 03-07-2025 GFR/1.73 sq M.predicted among non-blacks MDRD (S/P/Bld) [Vol rate/Area] 78 mL/min/{1.73_m2} >60 [facility] Comment on above: mL/min/1.73m2 CKD-EP I Creatinine Equation (2020) L503.7505on 03-07-2025 Natriuretic peptide B (Bld) [Mass/Vol] 3513 pg/mL High <=1800 [facility] Comment on above: Result Comment: Hear t Failure Unlikely: < 300 pg/mL Heart Failure Likely < 50 Years: > 450 pg/mL 50-75 Years: > 900 pg/mL >75 Years: > 1800 pg/mL Performed By: #### L 500.2500, L503.7505 #### [facility] [address] [place], [place], [id number] Natriuretic peptide.B prohor khloe N-Terminal [Mass/volume] in Serum or PlasmaOrdered By: Gretchen Nguyen on 03-07-2025 Natriuretic peptide.B prohormone N-Terminal [Mass/Vol] 3513 pg/mL High <1800 [facility] Comment on above: Heart Failure Unlike ly: < 300 pg/mLHeart Failure Likely< 50 Years: > 450 pg/mL50-75 Years: > 900 pg/mL>75 Years: > 1800 pg/mL Potassium measurement (mass/ volume)Ordered By: Gretchen Nguyen on 03-07-2025 Potassium (Unsp spec) [Mass/Vol] 4.9 mmol/L 3.3-5.1 [facility] Comment on above: Hemolysis present, R esults could be affected. Serum creatinine measurement (mass/volume)Ordered By: Gretchen Nguyen on 03-07-2025 Creatinine [Mass/Vol] 0.94 mg/dL 0.70-1.20 [facility] Serum glucose measurement (m ass/volume)Ordered By: Gretchen Nguyen on 03-07-2025 Glucose [Mass/Vol] 79 mg/dL 70-99 [facility] Serum or plasma calcium tay urement (mass/volume)Ordered By: Gretchen Nguyen on 03-07-2025 Calcium [Mass/Vol] 9.3 mg/dL 7.6-11.0 [facility] Serum or plasma urea nitroge n measurement (mass/volume)Ordered By: Gretchen Nguyen on 03-07-2025 Urea nitrogen [Mass/Vol] 17 mg/dL 4-19 [facility] Sodium levelOrdered By: Shagufta Nguyen on 03-07-2025 Sodium [Moles/Vol] 140 mmol/L 133-145 [facility] Cardiology Visit Reporton Cardiology Visit Report [facility] [address] [place], [place] [address] OFFICE VISIT Date of Service: 02/19/25 MR#: [id number] Acct: [id number] Name: JESSEE RUST Rep #: [id number] : 1935 Provider: HUAN ramsay Age/Sex: 89/M Location: [place] Status: Signed HPI HPI History of Present [...] evidence of ischemia. 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 Normal [facility] Vitamin B12on 02-15-2025 Cobalamin (Vitamin B12) [Mass/Vol] 425 pg/mL Normal 180-914 [facility] Comment on above: Performed By: #### L 503.0106 #### [facility] [address] [place], [address] Absolute lymphocyte countOrd ered By: Addi Mario on 02-14-2025 Lymphocytes Auto (Unsp spec) [#/Vol] 2.30 10*3/uL 0.83-4.51 [facility] Absolute neutrophil countOrd ered By: Addi Mario on 02-14-2025 Neutrophils (Bld) [#/Vol] 4.7 10*3/uL 2.0-7.7 [facility] Anion gap in Serum or Plasma Ordered By: Addi Mario on 02-14-2025 Anion gap [Moles/Vol] 10 mmol/L 5-15 [facility] Automated lymphocyte count a s percentage of total leukocytesOrdered By: Addi Mario on 02-14-2025 Lymphocytes/100 WBC Auto (Unsp spec) 28.6 % 19-41 [facility] BUN/creatinine ratioOrdered By: Addi Mario on 02-14-2025 Urea nitrogen/Creatinine [Mass ratio] 23.1 mg/mg High 10-20 [facility] Basophil percentageOrdered B y: Addi Mario on 02-14-2025 Basophils/100 WBC (Bld) 0.5 % 0-1 [facility] Bilirubin, totalOrdered By: Addi Mario on 02-14-2025 Bilirubin [Mass/Vol] 0.37 mg/dL 0.00-1.30 [facility] CBC W/Diff, Automatedon 01-18 Absolute Lymph 2.30 X10 3/uL Normal 0.83-4.51 [facility] Comment on above: Performed By: #### L 501.9520, L506.0400, L500.4050, L100.0100, L501.5200 ####[facility] [address] [place], [address] Absolute Neut 4.7 X10 3/uL Normal 2.0-7.7 [facility] Comment on above: Performed By: #### L 501.9520, L506.0400, L500.4050, L100.0100, L501.5200 ####[facility] [address] [place], [address] Basophils/100 WBC (Bld) 0.5 % Normal 0-1 [facility] Comment on above: Performed By: #### L 501.9520, L506.0400, L500.4050, L100.0100, L501.5200 ####[facility] [address] [place], [address] Eosinophils/100 WBC (Bld) 2.6 % Normal 0-5 [facility] Comment on above: Performed By: #### L 501.9520, L506.0400, L500.4050, L100.0100, L501.5200 ####[facility] [address] [place], [address] Erythrocyte distribution width (RBC) [Ratio] 15.4 % High 11.6-14.6 [facility] Comment on above: Performed By: #### L 501.9520, L506.0400, L500.4050, L100.0100, L501.5200 ####[facility] [address] [place], [address] Hematocrit (Bld) [Volume fraction] 37.3 % Low 40-54 [facility] Comment on above: Performed By: #### L 501.9520, L506.0400, L500.4050, L100.0100, L501.5200 ####[facility] [address] [place], [address] Hemoglobin (Bld) [Mass/Vol] 12.0 g/dL Low 13.0-16.5 [facility] Comment on above: Performed By: #### L 501.9520, L506.0400, L500.4050, L100.0100, L501.5200 ####[facility] [address] [place], [address] IG% 0.100 Normal 0.0-0.9 [facility] Comment on above: Result Comment: IG% - Immature Granulocytes (promyelocytes, myelocytes and metamyelocytes) > 1% indicates that a LEFT SHIFT is Present. Performed By: #### L 501.9520, L506.0400, L500.4050, L100.0100, L501.5200 ####[facility] [address] [place], [address] Lymphocytes/100 WBC (Bld) 28.6 % Normal 19-41 [facility] Comment on above: Performed By: #### L 501.9520, L506.0400, L500.4050, L100.0100, L501.5200 ####[facility] [address] [place], [address] MCH (RBC) [Entitic mass] 31.4 pg Normal 27.0-32.0 [facility] Comment on above: Performed By: #### L 501.9520, L506.0400, L500.4050, L100.0100, L501.5200 ####[facility] [address] [place], [address] MCHC (RBC) [Mass/Vol] 32.2 g/dL Normal 32-36 [facility] Comment on above: Performed By: #### L 501.9520, L506.0400, L500.4050, L100.0100, L501.5200 ####[facility] [address] [place], [address] MCV (RBC) [Entitic vol] 97.6 fL High 80-94 [facility] Comment on above: Performed By: #### L 501.9520, L506.0400, L500.4050, L100.0100, L501.5200 ####[facility] [address] [place], [address] Monocytes/100 WBC (Bld) 9.7 % Normal 0-10 [facility] Comment on above: Performed By: #### L 501.9520, L506.0400, L500.4050, L100.0100, L501.5200 ####[facility] [address] [place], [address] Neutrophils/100 WBC (Bld) 58.5 % Normal 47-70 [facility] Comment on above: Performed By: #### L 501.9520, L506.0400, L500.4050, L100.0100, L501.5200 ####[facility] [address] [place], [address] Nucleated RBC (Bld) [#/Vol] 0 10*3/uL Normal 0-5 [facility] Comment on above: Performed By: #### L 501.9520, L506.0400, L500.4050, L100.0100, L501.5200 ####[facility] [address] [place], [address] Platelet mean volume (Bld) [Entitic vol] 11.5 fL Normal 6.2-12.0 [facility] Comment on above: Performed By: #### L 501.9520, L506.0400, L500.4050, L100.0100, L501.5200 ####[facility] [address] [place], [address] Platelets (Bld) [#/Vol] 153 10*3/uL Normal 150-450 [facility] Comment on above: Performed By: #### L 501.9520, L506.0400, L500.4050, L100.0100, L501.5200 ####[facility] [address] [place], [address] RBC (Bld) [#/Vol] 3.82 10*6/uL Low 4.6-6.2 [facility] Comment on above: Performed By: #### L 501.9520, L506.0400, L500.4050, L100.0100, L501.5200 ####[facility] [address] [place], [address] RDW SD 54.5 fl High 35.1-43.9 [facility] Comment on above: Performed By: #### L 501.9520, L506.0400, L500.4050, L100.0100, L501.5200 ####[facility] [address] [place], [address] WBC (Bld) [#/Vol] 8.0 10*3/uL Normal 4.4-11.0 [facility] Comment on above: Performed By: #### L 501.9520, L506.0400, L500.4050, L100.0100, L501.5200 ####[facility] [address] [place], [address] Carbon dioxide, total [Moles /volume] in Central venous bloodOrdered By: Addi Mario on 02-14-2025 CO2 [Moles/Vol] 27.8 mmol/L 21.0-32.0 [facility] Chloride assayOrdered By: Aleah Mario on 02-14-2025 Chloride [Moles/Vol] 101 mmol/L 98-108 [facility] Comprehensive Metabolic Prof ilon 02-14-2025 Albumin [Mass/Vol] 3.9 g/dL Normal 3.4-4.8 [facility] Comment on above: Performed By: #### L 501.9520, L506.0400, L500.4050, L100.0100, L501.5200 ####[facility] [address] [place], [address] Albumin/Globulin [Mass ratio] 1.0 {ratio} Normal 0.9-2.4 [facility] Comment on above: Performed By: #### L 501.9520, L506.0400, L500.4050, L100.0100, L501.5200 ####[facility] [address] [place], [address] ALK PHOS 88 U/L Normal 40-129 [facility] Comment on above: Performed By: #### L 501.9520, L506.0400, L500.4050, L100.0100, L501.5200 ####[facility] [address] [place], [address] ALT [Catalytic activity/Vol] 17 U/L Normal <=46 [facility] Comment on above: Performed By: #### L 501.9520, L506.0400, L500.4050, L100.0100, L501.5200 ####[facility] [address] [place], [address] AST [Catalytic activity/Vol] 28 U/L Normal <=37 [facility] Comment on above: Performed By: #### L 501.9520, L506.0400, L500.4050, L100.0100, L501.5200 ####[facility] [address] [place], [address] Bilirubin [Mass/Vol] 0.37 mg/dL Normal 0.00-1.30 [facility] Comment on above: Performed By: #### L 501.9520, L506.0400, L500.4050, L100.0100, L501.5200 ####[facility] [address] [place], [address] BUN/CRE 23.1 RATIO High 10-20 [facility] Comment on above: Performed By: #### L 501.9520, L506.0400, L500.4050, L100.0100, L501.5200 ####[facility] [address] [place], [address] Calcium [Mass/Vol] 9.8 mg/dL Normal 7.6-11.0 [facility] Comment on above: Performed By: #### L 501.9520, L506.0400, L500.4050, L100.0100, L501.5200 ####[facility] [address] [place], [address] Chloride [Moles/Vol] 101 mmol/L Normal 98-108 [facility] Comment on above: Performed By: #### L 501.9520, L506.0400, L500.4050, L100.0100, L501.5200 ####[facility] [address] [place], [address] CO2 [Moles/Vol] 27.8 mmol/L Normal 21.0-32.0 [facility] Comment on above: Performed By: #### L 501.9520, L506.0400, L500.4050, L100.0100, L501.5200 ####[facility] [address] [place], [address] Creatinine [Mass/Vol] 0.93 mg/dL Normal 0.70-1.20 [facility] Comment on above: Performed By: #### L 501.9520, L506.0400, L500.4050, L100.0100, L501.5200 ####[facility] [address] [place], [address] GAP 10 Normal 5-15 [facility] Comment on above: Performed By: #### L 501.9520, L506.0400, L500.4050, L100.0100, L501.5200 ####[facility] [address] [place], [address] GFR/1.73 sq M.predicted among non-blacks MDRD (S/P/Bld) [Vol rate/Area] 80 mL/min/{1.73_m2} Normal >60 [facility] Comment on above: Result Comment: mL/m in/1.73m2 CKD-EPI Creatinine Equation (2020) Performed By: #### L 501.9520, L506.0400, L500.4050, L100.0100, L501.5200 ####[facility] [address] [place], [address] Globulin (S) [Mass/Vol] 4.0 g/dL Normal 2.2-4.2 [facility] Comment on above: Performed By: #### L 501.9520, L506.0400, L500.4050, L100.0100, L501.5200 ####[facility] [address] [place], [address] Glucose [Mass/Vol] 94 mg/dL Normal 70-99 [facility] Comment on above: Performed By: #### L 501.9520, L506.0400, L500.4050, L100.0100, L501.5200 ####[facility] [address] [place], [address] Potassium [Moles/Vol] 4.0 mmol/L Normal 3.3-5.1 [facility] Comment on above: Performed By: #### L 501.9520, L506.0400, L500.4050, L100.0100, L501.5200 ####[facility] [address] [place], [address] Sodium [Moles/Vol] 138 mmol/L Normal 133-145 [facility] Comment on above: Performed By: #### L 501.9520, L506.0400, L500.4050, L100.0100, L501.5200 ####[facility] [address] [place], [address] T PROT 7.8 g/dL Normal 5.9-8.4 [facility] Comment on above: Performed By: #### L 501.9520, L506.0400, L500.4050, L100.0100, L501.5200 ####[facility] [address] [place], [address] Urea nitrogen [Mass/Vol] 21 mg/dL High 4-19 [facility] Comment on above: Performed By: #### L 501.9520, L506.0400, L500.4050, L100.0100, L501.5200 ####[facility] [address] [place], [address] Eosinophil percentageOrdered By: Addi Mario on 02-14-2025 Eosinophils/100 WBC (Bld) 2.6 % 0-5 [facility] Erythrocyte distribution wid th ratioOrdered By: Addi Mario on 02-14-2025 Erythrocyte distribution width (RBC) [Ratio] 15.4 % High 11.6-14.6 [facility] Erythrocyte distribution wid th standard deviationOrdered By: Addi Mario on 02-14-2025 Erythrocyte distribution width (RBC) [Ratio] 54.5 fl High 35.1-43.9 [facility] Glomerular filtration rate ( GFR) estimation/1.73 sq m using serum, plasma, or whole bOrdered By: Addi Mario on 02-14-2025 GFR/1.73 sq M.predicted among non-blacks MDRD (S/P/Bld) [Vol rate/Area] 80 mL/min/{1.73_m2} >60 [facility] Comment on above: mL/min/1.73m2 CKD-EP I Creatinine Equation (2020) Hematocrit Auto (Bld) [Volum e fraction]Ordered By: Addi Mario on 02-14-2025 Hematocrit (Bld) [Volume fraction] 37.3 % Low 40-54 [facility] Hemoglobin measurementOrdere d By: Addi Mario on 02-14-2025 Hemoglobin (Bld) [Mass/Vol] 12.0 g/dL Low 13.0-16.5 [facility] Immature granulocytes/100 WB C Auto (Bld)Ordered By: Addi Mario on 02-14-2025 Immature granulocytes/100 WBC (Bld) 0.100 % 0.0-0.9 [facility] Comment on above: IG% - Immature Granu locytes (promyelocytes, myelocytes and metamyelocytes) > 1% indicates that a LEFT SHIFT is Present. Internal Medicine Office Vis gayla 02-14-2025 Internal Medicine Office Visit [facility], [id number] [place], [place] [address] OFFICE VISIT Date of Service: 02/14/25 MR#: [id number] Acct: [id number] Name: JESSEE RUST Rep #: [id number] : 1935 Provider: Dr. 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 Normal [facility] Laboratory - Chemistry and C hemistry - challengeOrdered By: Addi Mario on 02-14-2025 AST [Catalytic activity/Vol] 28 U/L <38 [facility] MCV (mean corpuscular volume ) determinationOrdered By: Addi Mario on 02-14-2025 MCV (RBC) [Entitic vol] 97.6 fL High 80-94 [facility] Magnesiumon 02-14-2025 Magnesium [Mass/Vol] 2.1 mg/dL Normal 1.5-2.2 [facility] Comment on above: Performed By: #### L 501.9520, L506.0400, L500.4050, L100.0100, L501.5200 ####[facility] [address] [place], [address] Magnesium measurement (mass/ volume)Ordered By: Addi Mario on 02-14-2025 Magnesium (Unsp spec) [Mass/Vol] 2.1 mg/dL 1.5-2.2 [facility] Mean corpuscular hemoglobin (MCH) determinationOrdered By: Addi Mario on 02-14-2025 MCH (RBC) [Entitic mass] 31.4 pg 27.0-32.0 [facility] Mean corpuscular hemoglobin concentration (MCHC) determinationOrdered By: Addi Mario on 02-14-2025 MCHC (RBC) [Mass/Vol] 32.2 g/dL 32-36 [facility] Mean platelet volume determi nationOrdered By: Addi Mario on 02-14-2025 Platelet mean volume (Bld) [Entitic vol] 11.5 fL 6.2-12.0 [facility] Monocyte percentageOrdered B y: Addi Mario on 02-14-2025 Monocytes/100 WBC (Bld) 9.7 % 0-10 [facility] Neutrophil percentageOrdered By: Addi Mario on 02-14-2025 Neutrophils/100 WBC (Bld) 58.5 % 47-70 [facility] Nucleated red blood cell per centageOrdered By: Addi Mario on 02-14-2025 Nucleated RBC/100 WBC (Bld) [Ratio] 0 % 0-5 [facility] Platelet countOrdered By: Aleah Mario on 02-14-2025 Platelets (Bld) [#/Vol] 153 10*3/uL 150-450 [facility] Potassium measurement (mass/ volume)Ordered By: Addi Mario on 02-14-2025 Potassium (Unsp spec) [Mass/Vol] 4.0 mmol/L 3.3-5.1 [facility] RBC Auto (Bld) [#/Vol]Ordere d By: Addi Mario on 02-14-2025 RBC (Bld) [#/Vol] 3.82 10*6/uL Low 4.6-6.2 [facility] Serum creatinine measurement (mass/volume)Ordered By: Addi Mario on 02-14-2025 Creatinine [Mass/Vol] 0.93 mg/dL 0.70-1.20 [facility] Serum globulin measurementOr dered By: Addi Mario on 02-14-2025 Globulin (S) [Mass/Vol] 4.0 g/dL 2.2-4.2 [facility] Serum glucose measurement (m ass/volume)Ordered By: Addi Mario on 02-14-2025 Glucose [Mass/Vol] 94 mg/dL 70-99 [facility] Serum or plasma alanine castellano otransferase (ALT) measurementOrdered By: Addi Mario on 02-14-2025 ALT [Catalytic activity/Vol] 17 U/L <47 [facility] Serum or plasma albumin tay urement (mass/volume)Ordered By: Addi Mario on 02-14-2025 Albumin [Mass/Vol] 3.9 g/dL 3.4-4.8 [facility] Serum or plasma albumin/glob ulin mass ratioOrdered By: Addi Mario on 02-14-2025 Albumin/Globulin [Mass ratio] 1.0 {ratio} 0.9-2.4 [facility] Serum or plasma alkaline lyndsey sphatase measurementOrdered By: josh Mario on 02-14-2025 ALP [Catalytic activity/Vol] 88 U/L 40-129 [facility] [facility] Serum or plasma calcium tay urement (mass/volume)Ordered By: Addi Mario on 02-14-2025 Calcium [Mass/Vol] 9.8 mg/dL 7.6-11.0 [facility] Serum or plasma urea nitroge n measurement (mass/volume)Ordered By: Addi Mario on 02-14-2025 Urea nitrogen [Mass/Vol] 21 mg/dL High 4-19 [facility] Sodium levelOrdered By: Arleth trevizolala Shelbi on 02-14-2025 Sodium [Moles/Vol] 138 mmol/L 133-145 [facility] T4 Free Directon 02-14-2025 T4 FREE DIRECT 1.10 ng/dL Normal 0.76-1.46 [facility] Comment on above: Performed By: #### L 501.9520, L506.0400, L500.4050, L100.0100, L501.5200 ####[facility] [address] [place], [address] T4 freeOrdered By: Addi Mario on 02-14-2025 Free T4 [Mass/Vol] 1.10 ng/dL 0.76-1.46 [facility] TSH DL <= 0.005 mIU/L QnOrde red By: Addi Mario on 02-14-2025 TSH Qn 2.190 uIU/mL 0.300-4.200 [facility] Thyroid Stim Hormone (TSH)on 02-14-2025 TSH 2.190 uIU/mL Normal 0.300-4.200 [facility] Comment on above: Performed By: #### L 501.9520, L506.0400, L500.4050, L100.0100, L501.5200 ####[facility] [address] [place], [address] Total proteinOrdered By: Sonny latialilli Mario on 02-14-2025 Protein [Mass/Vol] 7.8 g/dL 5.9-8.4 [facility] Vitamin B12 ser/plasOrdered By: [facility] Gemaria del carmen on 02-14-2025 Cobalamin (Vitamin B12) [Mass/Vol] 425 pg/mL 180-914 [facility] White blood cell (WBC) count Ordered By: [facility] Gemaria del carmen on 02-14-2025 WBC (Bld) [#/Vol] 8.0 10*3/uL 4.4-11.0 [facility] Modified Barium Swallow Stud yon 01-02-2025 Modified Barium Swallow Study [facility] Speech Pathology [address] [place] [address] Modified Barium Swallow Study MR#: [id number] Acct: [id number] Name: JESSEE RUST Rep #: [id number] : 1935 89 From: Jodee Miller M.A., [facility] Modified Barium Swallow Patient Information Study Date: [...] cup: Result: 1= does not enter airway [place] Thick Liquid via large single sip: cup: [...] below phary (more content not included)... Normal [facility] Rubeola IgG Abon 12-29-2024 RUBEOLA Ab, IgG > 300.0 Normal Immune >16.4 [facility] Comment on above: Result Comment: Nega tive <13.5 Equivocal 13.5 - 16.4 Positive >16.4 Presence of antibodies to Rubeola is presumptive evidence of immunity except when acute infection is suspected. Performed at: - [facility], [place], [place] [id number] [employer]: Herber Lindquist PhD, Phone: [phone] Performed By: #### L 4955.2293, L503.0106 ####[facility] [address] [place], [address] MeV IgG IA Qn (S)Ordered By: Addi Mario on 12-27-2024 Rubeola (Measles) IgG Antibody > 300.0 AU/mL Immune >16.4 [facility] Comment on above: Negative <13.5 Equiv ocal 13.5 - 16.4 Positive >16.4Presence of antibodies to Rubeola is presumptive evidenceof immunity except when acute infection is suspected.Performed at: [facility] [id number] [place], [place] [id number] Director: Herber Lindquist PhD, Phone: [phone] Serum measles virus IgG anti body assay by immunoassay (units/volume)Ordered By: Addi Mario on 12-27-2024 MeV IgG IA Qn (S) > 300.0 AU/mL Immune >16.4 [facility] Comment on above: Negative <13.5 Equiv ocal 13.5 - 16.4 Positive >16.4Presence of antibodies to Rubeola is presumptive evidenceof immunity except when acute infection is suspected.Performed at: [facility] [id number] [place], [place] [id number] Director: Herber Lindquist PhD, Phone: [phone] Vitamin B12on 12-27-2024 Cobalamin (Vitamin B12) [Mass/Vol] 512 pg/mL Normal 180-914 [facility] Comment on above: Performed By: #### L 3100.3300, L503.0106 ####[facility] [address] [facility] [place], [place], [address] Vitamin B12 ser/plasOrdered By: Addi Mario on 12-27-2024 Cobalamin (Vitamin B12) [Mass/Vol] 512 pg/mL 180-914 [facility] Pulmonary Visit Reporton Pulmonary Visit Report [facility] [place] [address] [place], [place] [address] OFFICE VISIT Date of Service: 12/14/24 MR#: [id number] Acct: [id number] Name: JESSEE RUST Rep #: [id number] : 1935 Provider: HUAN Sharma Age/Sex: 89/M [facility] Status: Signed Assessment and Plan Assessment and [...] room air Intake Visit Reasons: 6 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 Normal [facility] No Panel InformationOrdered By: Addi Mario on 11-30-2024 POC SARS CoV-2 Antigen Positive [facility] Office Visit Reporton 2024 Office Visit Report [facility] [address] [place] [address] OFFICE VISIT Date of Service: 11/30/24 MR#: [id number] Acct: [id number] Patient: JESSEE RUST Rep #: [id number] : 1935 Provider: VANNESSA NURSE Age/Sex: 89/M Location: [facility] Status: Signed Intake Vital Signs 11/15/24 [...] SARS AG Positive Last Edit by Erendira Resterpo LPN on 11/30/24 13:52 Assessment and Plan Assessment and Plan (1) Exposure to COVID-19 virus: Status: Acute (2) Sore throat: Status: Acute Orders: Orders POC Rapid SARS Antigen Today U07.1 - COVID-19 Clinical Quality Measures Falls Risk Screening/Assistive Devices Have you fallen in the past year?: No 11/30/24 1411 Date Addi Mario MD Cosigner Signature: Date (if applicable) CC: Normal [facility] 11-27-2024 CNPN Telephone (OPHTMN) ---- JESSEE RUST ([id number]) 1935 M Date Time Provider Department [facility] visit today, we recorded the [...] OVERWEIGHT [E66.9] (more content not included)... Normal [facility] OCT OPTIC NERVE CIRRUS OU (B OTH EYES)on 11-26-2024 [facility] Radiology Study observation (narrative) [facility] Absolute lymphocyte countOrd ered By: Addi Mario on 11-15-2024 Lymphocytes Auto (Unsp spec) [#/Vol] 2.07 10*3/uL 0.83-4.51 [facility] Absolute neutrophil countOrd ered By: zackeryhobbslilli Mario on 11-15-2024 Neutrophils (Bld) [#/Vol] 4.5 10*3/uL 2.0-7.7 [facility] Automated lymphocyte count a s percentage of total leukocytesOrdered By: Addi Mario on 11-15-2024 Lymphocytes/100 WBC Auto (Unsp spec) 27.1 % - [facility] BUN/creatinine ratioOrdered By: Addi Mario on 11-15-2024 Urea nitrogen/Creatinine [Mass ratio] 19.3 mg/mg - [facility] Basic Metabolic Profile (BMP )on 11-15-2024 Anion gap [Moles/Vol] 8 mmol/L Normal - [facility] Comment on above: Performed By: #### L 503.6550, L503.6150, L500.4100, L503.6075, L100.0100, L500.2500 #### [facility] [address] [place], [address] BUN/CRE 19.3 RATIO Normal - [facility] Comment on above: Performed By: #### L 503.6550, L503.6150, L500.4100, L503.6075, L100.0100, L500.2500 #### [facility] [address] [place], [address] Calcium [Mass/Vol] 9.6 mg/dL Normal 7.6-11.0 [facility] Comment on above: Performed By: #### L 503.6550, L503.6150, L500.4100, L503.6075, L100.0100, L500.2500 #### [facility] [address] [place], [address] Chloride [Moles/Vol] 102 mmol/L Normal 96-108 [facility] Comment on above: Performed By: #### L 503.6550, L503.6150, L500.4100, L503.6075, L100.0100, L500.2500 #### [facility] [address] [place], [address] CO2 [Moles/Vol] 28.4 mmol/L Normal 22.0-29.0 [facility] Comment on above: Performed By: #### L 503.6550, L503.6150, L500.4100, L503.6075, L100.0100, L500.2500 #### [facility] [address] [place], [address] Creatinine [Mass/Vol] 0.86 mg/dL Normal 0.70-1.20 [facility] Comment on above: Performed By: #### L 503.6550, L503.6150, L500.4100, L503.6075, L100.0100, L500.2500 #### [facility] [address] [place], [address] GFR/1.73 sq M.predicted among non-blacks MDRD (S/P/Bld) [Vol rate/Area] 84 mL/min/{1.73_m2} Normal >60 [facility] Comment on above: Result Comment: mL/m in/1.73m2 CKD-EPI Creatinine Equation (2020) Performed By: #### L 503.6550, L503.6150, L500.4100, L503.6075, L100.0100, L500.2500 #### [facility] [address] [place], [address] Glucose [Mass/Vol] 87 mg/dL Normal 70-99 [facility] Comment on above: Performed By: #### L 503.6550, L503.6150, L500.4100, L503.6075, L100.0100, L500.2500 #### [facility] [address] [place], [address] Potassium [Moles/Vol] 4.4 mmol/L Normal 3.3-5.1 [facility] Comment on above: Performed By: #### L 503.6550, L503.6150, L500.4100, L503.6075, L100.0100, L500.2500 #### [facility] [address] [place], [address] Sodium [Moles/Vol] 139 mmol/L Normal 133-145 [facility] Comment on above: Performed By: #### L 503.6550, L503.6150, L500.4100, L503.6075, L100.0100, L500.2500 #### [facility] [address] [place], [address] Urea nitrogen [Mass/Vol] 17 mg/dL Normal 4-19 [facility] Comment on above: Performed By: #### L 503.6550, L503.6150, L500.4100, L503.6075, L100.0100, L500.2500 #### [facility] [address] [place], [address] Basophil percentageOrdered B y: Audreylilli Shelbi on 11-15-2024 Basophils/100 WBC (Bld) 0.5 % 0-1 [facility] CBC W/Diff, Automatedon - Absolute Lymph 2.07 X10 3/uL Normal 0.83-4.51 [facility] Comment on above: Performed By: #### L 503.6550, L503.6150, L500.4100, L503.6075, L100.0100, L500.2500 #### [facility] [address] [place], [address] Absolute Neut 4.5 X10 3/uL Normal 2.0-7.7 [facility] Comment on above: Performed By: #### L 503.6550, L503.6150, L500.4100, L503.6075, L100.0100, L500.2500 #### [facility] [address] [place], [address] Basophils/100 WBC (Bld) 0.5 % Normal 0-1 [facility] Comment on above: Performed By: #### L 503.6550, L503.6150, L500.4100, L503.6075, L100.0100, L500.2500 #### [facility] [address] [place], [address] Eosinophils/100 WBC (Bld) 2.2 % Normal 0-5 [facility] Comment on above: Performed By: #### L 503.6550, L503.6150, L500.4100, L503.6075, L100.0100, L500.2500 #### [facility] [address] [place], [address] Erythrocyte distribution width (RBC) [Ratio] 14.4 % Normal 11.6-14.6 [facility] Comment on above: Performed By: #### L 503.6550, L503.6150, L500.4100, L503.6075, L100.0100, L500.2500 #### [facility] [address] [place], [address] Hematocrit (Bld) [Volume fraction] 38.2 % Low 40-54 [facility] Comment on above: Performed By: #### L 503.6550, L503.6150, L500.4100, L503.6075, L100.0100, L500.2500 #### [facility] [address] [place], [address] Hemoglobin (Bld) [Mass/Vol] 12.1 g/dL Low 13.0-16.5 [facility] Comment on above: Performed By: #### L 503.6550, L503.6150, L500.4100, L503.6075, L100.0100, L500.2500 #### [facility] [address] [place], [address] IG% 0.400 Normal 0.0-0.9 [facility] Comment on above: Result Comment: IG% - Immature Granulocytes (promyelocytes, myelocytes and metamyelocytes) > 1% indicates that a LEFT SHIFT is Present. Performed By: #### L 503.6550, L503.6150, L500.4100, L503.6075, L100.0100, L500.2500 #### [facility] [address] [place], [address] Lymphocytes/100 WBC (Bld) 27.1 % Normal 19-41 [facility] Comment on above: Performed By: #### L 503.6550, L503.6150, L500.4100, L503.6075, L100.0100, L500.2500 #### [facility] [address] [place], [address] MCH (RBC) [Entitic mass] 31.5 pg Normal 27.0-32.0 [facility] Comment on above: Performed By: #### L 503.6550, L503.6150, L500.4100, L503.6075, L100.0100, L500.2500 #### [facility] [address] [place], [address] MCHC (RBC) [Mass/Vol] 31.7 g/dL Low 32-36 [facility] Comment on above: Performed By: #### L 503.6550, L503.6150, L500.4100, L503.6075, L100.0100, L500.2500 #### [facility] [address] [place], [address] MCV (RBC) [Entitic vol] 99.5 fL High 80-94 [facility] Comment on above: Performed By: #### L 503.6550, L503.6150, L500.4100, L503.6075, L100.0100, L500.2500 #### [facility] [address] [place], [address] Monocytes/100 WBC (Bld) 11.1 % High 0-10 [facility] Comment on above: Performed By: #### L 503.6550, L503.6150, L500.4100, L503.6075, L100.0100, L500.2500 #### [facility] [address] [place], [address] Neutrophils/100 WBC (Bld) 58.7 % Normal 47-70 [facility] Comment on above: Performed By: #### L 503.6550, L503.6150, L500.4100, L503.6075, L100.0100, L500.2500 #### [facility] [address] [place], [address] Nucleated RBC (Bld) [#/Vol] 0 10*3/uL Normal 0-5 [facility] Comment on above: Performed By: #### L 503.6550, L503.6150, L500.4100, L503.6075, L100.0100, L500.2500 #### [facility] [address] [place], [address] Platelet mean volume (Bld) [Entitic vol] 11.3 fL Normal 6.2-12.0 [facility] Comment on above: Performed By: #### L 503.6550, L503.6150, L500.4100, L503.6075, L100.0100, L500.2500 #### [facility] [address] [place], [address] Platelets (Bld) [#/Vol] 142 10*3/uL Low 150-450 [facility] Comment on above: Performed By: #### L 503.6550, L503.6150, L500.4100, L503.6075, L100.0100, L500.2500 #### [facility] [address] [place], [address] RBC (Bld) [#/Vol] 3.84 10*6/uL Low 4.6-6.2 [facility] Comment on above: Performed By: #### L 503.6550, L503.6150, L500.4100, L503.6075, L100.0100, L500.2500 #### [facility] [address] [place], [address] RDW SD 52.8 fl High 35.1-43.9 [facility] Comment on above: Performed By: #### L 503.6550, L503.6150, L500.4100, L503.6075, L100.0100, L500.2500 #### [facility] [address] [place], [address] WBC (Bld) [#/Vol] 7.6 10*3/uL Normal 4.4-11.0 [facility] Comment on above: Performed By: #### L 503.6550, L503.6150, L500.4100, L503.6075, L100.0100, L500.2500 #### [facility] [address] [place], [address] Calculated total iron bindin g capacityOrdered By: Addi Mario on 02-27-2025 Total Iron Binding Capacity 289 ug/dL 250-450 [facility] Calculated very low density lipoprotein (VLDL) cholesterol measurementOrdered By: Addi Mario on 11-15-2024 Calculated very low density lipoprotein (VLDL) cholesterol measurement 18 mg/dL 5-40 [facility] VLDL Cholesterol 18 mg/dL 5-40 [facility] Carbon dioxide measurementOr dered By: Addi Mario on 11-15-2024 CO2 [Moles/Vol] 28.4 mmol/L 22.0-29.0 [facility] Chloride measurementOrdered By: Addi Mario on 11-15-2024 Chloride [Moles/Vol] 102 mmol/L 96-108 [facility] Eosinophil percentageOrdered By: Addi Mario on 11-15-2024 Eosinophils/100 WBC (Bld) 2.2 % 0-5 [facility] Erythrocyte distribution wid th ratioOrdered By: Addi Mario on 11-15-2024 Erythrocyte distribution width (RBC) [Ratio] 14.4 % 11.6-14.6 [facility] Erythrocyte distribution wid th standard deviationOrdered By: Addi Mario on 11-15-2024 Erythrocyte distribution width (RBC) [Entitic vol] 52.8 fL High 35.1-43.9 [facility] Erythrocyte distribution width (RBC) [Ratio] 52.8 fl High 35.1-43.9 [facility] Ferritinon 11-15-2024 Ferritin [Mass/Vol] 71 ng/mL Normal 37-417 [facility] Comment on above: Performed By: #### L 503.6550, L503.6150, L500.4100, L503.6075, L100.0100, L500.2500 ####[facility] [address] [place], [address] GFR/1.73 sq M.predicted radha g non-blacks MDRD (S/P/Bld) [Vol rate/Area]Ordered By: Addi Mario on 11-15-2024 Estimated GFR (MDRD) Non-Af Amer 84 >60 [facility] Comment on above: mL/min/1.73m2 CKD-EP I Creatinine Equation (2020) Glomerular filtration rate ( GFR) estimation/1.73 sq m using serum, plasma, or whole bOrdered By: Addi Mario on 11-15-2024 GFR/1.73 sq M.predicted among non-blacks MDRD (S/P/Bld) [Vol rate/Area] 84 mL/min/{1.73_m2} >60 [facility] Comment on above: mL/min/1.73m2 CKD-EP I Creatinine Equation (2020) Hematocrit Auto (Bld) [Volum e fraction]Ordered By: Addi Mario on 11-15-2024 Hematocrit (Bld) [Volume fraction] 38.2 % Low 40-54 [facility] Hemoglobin measurementOrdere d By: Addi Mario on 11-15-2024 Hemoglobin (Bld) [Mass/Vol] 12.1 g/dL Low 13.0-16.5 [facility] Immature granulocytes/100 WB C Auto (Bld)Ordered By: Addi Mario on 11-15-2024 Immature granulocytes/100 WBC (Bld) 0.400 % 0.0-0.9 [facility] Comment on above: IG% - Immature Granu locytes (promyelocytes, myelocytes and metamyelocytes) > 1% indicates that a LEFT SHIFT is Present. Internal Medicine Office Vis gayla 11-15-2024 Internal Medicine Office Visit [facility], [id number] [facility] [place], [place] [address] OFFICE VISIT Date of Service: 11/15/24 MR#: [id number] Acct: [id number] Name: JESSEE RUST Rep #: [id number] : 1935 Provider: Dr. Addi alvarado MD Age/Sex: 89/M Location: [place] Status: Signed Intake Vital Signs 08/15/24 14:31 [...] DAILY Eye 1 10/15/22 11/15/24 History drops konesflq-bvr-rnvte acid 0.4 1 tab PO DAILY supplement [...] hydrocortisone 2.5 % topical cream 1 applic HI BID-QID PRN 01/04/24 11/15/24 Rx with perineal [...] mg PO DAILY BPH #90 tabs 4 11/15/24 Rx famotidine 20 mg tablet [...] c/o of issues with swallowing. [facility] Medical History (Updated 11/15/24 @ 15:32 by [...] Bradycardia Nonrheumati (more content not included)... Normal [facility] Ironon 11-15-2024 Iron [Mass/Vol] 50 ug/dL Low 65-175 [facility] Comment on above: Performed By: #### L 503.6550, L503.6150, L500.4100, L503.6075, L100.0100, L500.2500 ####[facility] [address] [place], [address] Iron (Unsp spec) [Mass/Mass] Ordered By: Addi Mario on 11-15-2024 Iron [Mass/Vol] 50 ug/dL Low 65-175 [facility] Iron Binding Capacity,Totalo n 11-15-2024 TIBC 289 ug/dL Normal 250-450 [facility] Comment on above: Performed By: #### L 503.6550, L503.6150, L500.4100, L503.6075, L100.0100, L500.2500 ####[facility] [address] [place], [place], [id number] Iron measurement (mass/mass) Ordered By: Addi Mario on 11-15-2024 Iron (Unsp spec) [Mass/Mass] 50 ug/dL Low 65-175 [facility] LDL calc ser/plasOrdered By: Addi Mario on 11-15-2024 Cholesterol in LDL [Mass/Vol] 55 mg/dL [facility] Comment on above: Yuuwbhoyuq=234-801 m g/dL & Higher Iyuy=106 mg/dL or greater LDL Cholesterol, Calculated 55 mg/dL [facility] Comment on above: Kpjmcjcpuc=238-765 m g/dL & Higher Gwyo=245 mg/dL or greater Lipid Profileon 11-15-2024 CHOL:HDL 2.40 Normal [facility] Comment on above: Performed By: #### L 503.6550, L503.6150, L500.4100, L503.6075, L100.0100, L500.2500 #### [facility] [address] [place], [address] Cholesterol [Mass/Vol] 126 mg/dL Normal <=200 [facility] Comment on above: Result Comment: Chol esterol level, Desirable <200 mg/dL Borderline high cholesterol 200-239 mg/dL High cholesterol >=240 mg/dL Recommendations of the NCEP Adult Treatment Panel for the following risk-cutoff thresholds for the [place] population. Performed By: #### L 503.6550, L503.6150, L500.4100, L503.6075, L100.0100, L500.2500 #### [facility] [address] [place], [address] Cholesterol in HDL [Mass/Vol] 52 mg/dL Normal [facility] Comment on above: Result Comment: Dede onal Cholesterol Education Program (NCEP) guidelines: <40 mg/dL: Low HDL-cholesterol (major risk factor for CHD) >= 60 mg/dL: High HDL-cholesterol (negative risk factor for CHD) HDL-cholesterol is affected by a number of factors, e.g. smoking, exercise, hormones, sex and age. Performed By: #### L 503.6550, L503.6150, L500.4100, L503.6075, L100.0100, L500.2500 #### [facility] [address] [place], [address] Cholesterol in LDL [Mass/Vol] 55 mg/dL Normal [facility] Comment on above: Result Comment: Bord zighjp=200-822 mg/dL Higher Lknf=337 mg/dL or greater Performed By: #### L 503.6550, L503.6150, L500.4100, L503.6075, L100.0100, L500.2500 #### [facility] [address] [place], [address] Cholesterol in VLDL [Mass/Vol] 18 mg/dL Normal 5-40 [facility] Comment on above: Performed By: #### L 503.6550, L503.6150, L500.4100, L503.6075, L100.0100, L500.2500 #### [facility] [address] [place], [address] Triglyceride [Mass/Vol] 91 mg/dL Normal [facility] Comment on above: Result Comment: The drugs N-Acetylcysteine and Metamizole may falsely depress this assay. Normal range: <150 mg/dL Borderline High: 150-199 mg/dL High: 200-499 mg/dL Very High: >500 mg/dL Performed By: #### L 503.6550, L503.6150, L500.4100, L503.6075, L100.0100, L500.2500 #### [facility] [address] [place], [address] Lymphocytes Auto (Unsp spec) [#/Vol]Ordered By: Addi Mario on 11-15-2024 Lymphocytes (Bld) [#/Vol] 2.07 10*3/uL 0.83-4.5 1 [facility] Lymphocytes/100 WBC Auto (Un sp spec)Ordered By: Addi Mario on 11-15-2024 Lymphocytes/100 WBC (Bld) 27.1 % 19-41 [facility] MCV (mean corpuscular volume ) determinationOrdered By: Addi Mario on 11-15-2024 MCV (RBC) [Entitic vol] 99.5 fL High 80-94 [facility] Mean corpuscular hemoglobin (MCH) determinationOrdered By: Addi Mario on 11-15-2024 MCH (RBC) [Entitic mass] 31.5 pg 27.0-32.0 [facility] Mean corpuscular hemoglobin concentration (MCHC) determinationOrdered By: Addi Mario on 11-15-2024 MCHC (RBC) [Mass/Vol] 31.7 g/dL Low 32-36 [facility] Mean platelet volume determi nationOrdered By: Addi Mario on 11-15-2024 Platelet mean volume (Bld) [Entitic vol] 11.3 fL 6.2-12.0 [facility] Monocyte percentageOrdered B y: Addi Mario on 11-15-2024 Monocytes/100 WBC (Bld) 11.1 % High 0-10 [facility] Neutrophil percentageOrdered By: Addi Mario on 11-15-2024 Neutrophils/100 WBC (Bld) 58.7 % 47-70 [facility] Nucleated red blood cell per centageOrdered By: Addi Mario on 11-15-2024 Nucleated RBC/100 WBC (Bld) [Ratio] 0 % 0-5 [facility] Platelet countOrdered By: Aleah Mario on 11-15-2024 Platelets (Bld) [#/Vol] 142 10*3/uL Low 150-450 [facility] RBC Auto (Bld) [#/Vol]Ordere d By: Addi Mario on 11-15-2024 RBC (Bld) [#/Vol] 3.84 10*6/uL Low 4.6-6.2 [facility] Screening total cholesterol/ high density lipoprotein (HDL) cholesterol ratioOrdered By: Addi Mario on 11-15-2024 Cholesterol.total/Cholest austin in HDL [Mass ratio] 2.40 {ratio} [facility] Serum creatinine measurement (mass/volume)Ordered By: Addi Mario on 11-15-2024 Creatinine [Mass/Vol] 0.86 mg/dL 0.70-1.20 [facility] Serum glucose measurement (m ass/volume)Ordered By: Addi Mario on 11-15-2024 Glucose [Mass/Vol] 87 mg/dL 70-99 [facility] Serum or plasma anion gap de termination (moles/volume)Ordered By: Addi Mario on 11-15-2024 Anion gap [Moles/Vol] 8 mmol/L 5-15 [facility] Serum or plasma calcium tay urement (mass/volume)Ordered By: Addi Mario on 11-15-2024 Calcium [Mass/Vol] 9.6 mg/dL 7.6-11.0 [facility] Serum or plasma cholesterol in HDL measurement (mass/volume)Ordered By: Addi Mario on 11-15-2024 Cholesterol in HDL [Mass/Vol] 52 mg/dL >40 [facility] Comment on above: National Cholesterol Education Program (NCEP) guidelines:<40 mg/dL: Low HDL-cholesterol (major risk factor for CHD)>= 60 mg/dL: High HDL-cholesterol (negative risk factor for CHD)HDL-cholesterol is affected by a number of factors, e.g. smoking, exercise, hormones, sex and age. Serum or plasma cholesterol measurement (mass/volume)Ordered By: Addi Mario on 11-15-2024 Cholesterol [Mass/Vol] 126 mg/dL <201 [facility] Comment on above: Cholesterol level, D esirable <200 mg/dLBorderline high cholesterol 200-239 mg/dLHigh cholesterol >=240 mg/dLRecommendations of the NCEP Adult Treatment Panel for the following risk-cutoff thresholds for the [place] population. Serum or plasma ferritin precious surement (mass/volume)Ordered By: Addi Mario on 11-15-2024 Ferritin [Mass/Vol] 71 ng/mL 37-417 [facility] Serum or plasma potassium me asurementOrdered By: Addi Mario on 11-15-2024 Potassium [Moles/Vol] 4.4 mmol/L 3.3-5.1 [facility] Serum or plasma sodium measu rement (moles/volume)Ordered By: Addi Mario on 11-15-2024 Sodium [Moles/Vol] 139 mmol/L 133-145 [facility] Serum or plasma urea nitroge n measurement (mass/volume)Ordered By: Addi Mario on 11-15-2024 Urea nitrogen [Mass/Vol] 17 mg/dL 4-19 [facility] Triglycerides measurementOrd ered By: Arlethkajal Joocarissamaria del carmen on 11-15-2024 Triglyceride [Mass/Vol] 91 mg/dL <199 [facility] Comment on above: The drugs N-Acetylcy steine and Metamizole may falsely depress this assay. Normal range: <150 mg/dLBorderline High: 150-199 mg/dLHigh: 200-499 mg/dLVery High: >500 mg/dL White blood cell (WBC) count Ordered By: Addi Mario on 11-15-2024 WBC (Bld) [#/Vol] 7.6 10*3/uL 4.4-11.0 [facility] Cardiology Visit Reporton Cardiology Visit Report [facility] [address] [place] [address] OFFICE VISIT Date of Service: 10/23/24 MR#: [id number] Acct: [id number] Name: JESSEE RUST Rep #: [id number] 1 : 1935 Provider: BASSEM Murcia Age/Sex: 89/M Location: [place] Status: Signed HPI HPI History of Present [...] evidence of ischemia. 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 Normal [facility] CNPNon 10-03-2024 CNPN Telephone (OPHTMN) ---- JESSEE RUST ([id number]) 1935 M Date Time Provider Department 10/03/24 SHAWN SHEA OPHENDY During your visit today, we recorded the following information about you: Amy Leesa Dodge 10/03/2024 2:21 PM Signed patient reporting that he has not been taking his alphagan since 08/12, he was on the med for 2 days and then developed OU conjunctivitis, he took medicine for that but never went back on the alphagan what should he do at this point? [phone] he was offered an appt on 10/08 at [place] but he declined Shawn Shea MD filed at 07/30/2024 2:11 PM Status: Signed New from [place] Tmax: <22; Pachy: -, - Lasers and [...] 70's Date Reviewed: 08/14/2024 Reviewed by: Priya Saleh [...] 3 ta (more content not included)... Normal [facility] Absolute neutrophil countOrd ered By: Addi Mario on 08-15-2024 Neutrophils (Bld) [#/Vol] 3.2 10*3/uL 2.0-7.7 [facility] Albumin to globulin ratioOrd ered By: Addi Mario on 08-15-2024 Albumin/Globulin [Mass ratio] 0.7 {ratio} Low 0.9-2.4 [facility] Basophil percentageOrdered B y: Addi Mario on 08-15-2024 Basophils/100 WBC (Bld) 0.7 % 0-1 [facility] Bilirubin, totalOrdered By: Addi Mario on 08-15-2024 Bilirubin [Mass/Vol] 0.50 mg/dL 0.20-1.00 [facility] Comment on above: For patients on eltr ombopag therapy, use of Dimension [place] TBIL is not recommended. Blood urea nitrogen (BUN)/cr eatinine ratioOrdered By: Addi Mario on 08-15-2024 Urea nitrogen/Creatinine [Mass ratio] 15.4 mg/mg 10- [facility] CBC W/Diff, Automatedon 07-21 Absolute Lymph 1.84 X10 3/uL Normal 0.83-4.51 [facility] Comment on above: Performed By: #### L 503.0105, L100.0100, L500.4050 ####[facility] [address] [place], [address] Absolute Neut 3.2 X10 3/uL Normal 2.0-7.7 [facility] Comment on above: Performed By: #### L 503.0105, L100.0100, L500.4050 ####[facility] [address] [place], [address] Basophils/100 WBC (Bld) 0.7 % Normal 0-1 [facility] Comment on above: Performed By: #### L 503.0105, L100.0100, L500.4050 ####[facility] [address] [place], [address] Eosinophils/100 WBC (Bld) 3.2 % Normal 0-5 [facility] Comment on above: Performed By: #### L 503.0105, L100.0100, L500.4050 ####[facility] [address] [place], [address] Erythrocyte distribution width (RBC) [Ratio] 14.6 % Normal 11.6-14.6 [facility] Comment on above: Performed By: #### L 503.0105, L100.0100, L500.4050 ####[facility] [address] [place], [address] Hematocrit (Bld) [Volume fraction] 38.7 % Low 40-54 [facility] Comment on above: Performed By: #### L 503.0105, L100.0100, L500.4050 ####[facility] [address] [place], [address] Hemoglobin (Bld) [Mass/Vol] 12.5 g/dL Low 13.0-16.5 [facility] Comment on above: Performed By: #### L 503.0105, L100.0100, L500.4050 ####[facility] [address] [place], [address] IG% 0.300 Normal 0.0-0.9 [facility] Comment on above: Result Comment: IG% - Immature Granulocytes (promyelocytes, myelocytes and metamyelocytes) > 1% indicates that a LEFT SHIFT is Present. Performed By: #### L 503.0105, L100.0100, L500.4050 ####[facility] [address] [place], [address] Lymphocytes/100 WBC (Bld) 31.2 % Normal 19-41 [facility] Comment on above: Performed By: #### L 503.0105, L100.0100, L500.4050 ####[facility] [address] [place], [address] MCH (RBC) [Entitic mass] 31.7 pg Normal 27.0-32.0 [facility] Comment on above: Performed By: #### L 503.0105, L100.0100, L500.4050 ####[facility] [address] [place] [place], [address] MCHC (RBC) [Mass/Vol] 32.3 g/dL Normal 32-36 [facility] Comment on above: Performed By: #### L 503.0105, L100.0100, L500.4050 ####[facility] [address] [place], [address] MCV (RBC) [Entitic vol] 98.2 fL High 80-94 [facility] Comment on above: Performed By: #### L 503.0105, L100.0100, L500.4050 ####[facility] [address] [place], [address] Monocytes/100 WBC (Bld) 10.5 % High 0-10 [facility] Comment on above: Performed By: #### L 503.0105, L100.0100, L500.4050 ####[facility] [address] [place], [address] Neutrophils/100 WBC (Bld) 54.1 % Normal 47-70 [facility] Comment on above: Performed By: #### L 503.0105, L100.0100, L500.4050 ####[facility] [address] [place], [address] Nucleated RBC (Bld) [#/Vol] 0 10*3/uL Normal 0-5 [facility] Comment on above: Performed By: #### L 503.0105, L100.0100, L500.4050 ####[facility] [address] [place], [address] Platelet mean volume (Bld) [Entitic vol] 11.3 fL Normal 6.2-12.0 [facility] Comment on above: Performed By: #### L 503.0105, L100.0100, L500.4050 ####[facility] [address] [place], [address] Platelets (Bld) [#/Vol] 129 10*3/uL Low 150-450 [facility] Comment on above: Performed By: #### L 503.0105, L100.0100, L500.4050 ####[facility] [address] [place], [address] RBC (Bld) [#/Vol] 3.94 10*6/uL Low 4.6-6.2 [facility] Comment on above: Performed By: #### L 503.0105, L100.0100, L500.4050 ####[facility] [address] [place], [address] RDW SD 53.1 fl High 35.1-43.9 [facility] Comment on above: Performed By: #### L 503.0105, L100.0100, L500.4050 ####[facility] [address] [place], [address] WBC (Bld) [#/Vol] 5.9 10*3/uL Normal 4.4-11.0 [facility] Comment on above: Performed By: #### L 503.0105, L100.0100, L500.4050 ####[facility] [address] [place], [address] Carbon dioxide measurementOr dered By: Addi Mario on 08-15-2024 CO2 [Moles/Vol] 31.0 mmol/L 21.0-32.0 [facility] Chloride measurementOrdered By: Addi Mario on 08-15-2024 Chloride [Moles/Vol] 104 mmol/L 98-107 [facility] Comprehensive Metabolic Prof ilon 08-15-2024 Albumin [Mass/Vol] 3.3 g/dL Normal 3.2-5.0 [facility] Comment on above: Performed By: #### L 503.0105, L100.0100, L500.4050 ####[facility] [address] [place], [address] Albumin/Globulin [Mass ratio] 0.7 {ratio} Low 0.9-2.4 [facility] Comment on above: Performed By: #### L 503.0105, L100.0100, L500.4050 ####[facility] [address] [place], [address] ALK P 91 U/L Normal 45-117 [facility] Comment on above: Performed By: #### L 503.0105, L100.0100, L500.4050 ####[facility] [address] [place], [address] ALT [Catalytic activity/Vol] 21 U/L Normal 16-61 [facility] Comment on above: Performed By: #### L 503.0105, L100.0100, L500.4050 ####[facility] [address] [place] [place], [address] AST [Catalytic activity/Vol] 27 U/L Normal 15-37 [facility] Comment on above: Performed By: #### L 503.0105, L100.0100, L500.4050 ####[facility] [address] [place], [address] Bilirubin [Mass/Vol] 0.50 mg/dL Normal 0.20-1.00 [facility] Comment on above: Result Comment: For patients on eltrombopag therapy, use of Dimension [place] TBIL is not recommended. Performed By: #### L 503.0105, L100.0100, L500.4050 ####[facility] [address] [place], [address] BUN/CRE 15.4 RATIO Normal 10-20 [facility] Comment on above: Performed By: #### L 503.0105, L100.0100, L500.4050 ####[facility] [address] [place], [address] CA,Total 9.6 mg/dL Normal 8.5-10.1 [facility] Comment on above: Performed By: #### L 503.0105, L100.0100, L500.4050 ####[facility] [address] [place], [address] Chloride [Moles/Vol] 104 mmol/L Normal 98-107 [facility] Comment on above: Performed By: #### L 503.0105, L100.0100, L500.4050 ####[facility] [address] [place], [address] CO2 [Moles/Vol] 31.0 mmol/L Normal 21.0-32.0 [facility] Comment on above: Performed By: #### L 503.0105, L100.0100, L500.4050 ####[facility] [address] [place], [address] Creatinine [Mass/Vol] 1.04 mg/dL Normal 0.70-1.30 [facility] Comment on above: Result Comment: The validity of the calculated GFR GFRAA in patients over 70 years has not been determined. Clinical correlation is essential. Performed By: #### L 503.0105, L100.0100, L500.4050 ####[facility] [address] [place], [address] EST GFR - AA 87 mL/min Normal >60 [facility] Comment on above: Result Comment: Afri can [place]ymra[place] GFR Calc Performed By: #### L 503.0105, L100.0100, L500.4050 ####[facility] [address] [place], [address] GAP 5 Normal 5-15 [facility] Comment on above: Performed By: #### L 503.0105, L100.0100, L500.4050 ####[facility] [address] [place], [address] GFR/1.73 sq M.predicted among non-blacks MDRD (S/P/Bld) [Vol rate/Area] 72 mL/min/{1.73_m2} Normal >60 [facility] Comment on above: Result Comment: Non- GFR Calc Performed By: #### L 503.0105, L100.0100, L500.4050 ####[facility] [address] [place], [address] Globulin (S) [Mass/Vol] 4.7 g/dL High 2.2-4.2 [facility] Comment on above: Performed By: #### L 503.0105, L100.0100, L500.4050 ####[facility] [address] [place], [address] Glucose [Mass/Vol] 108 mg/dL High 74-106 [facility] Comment on above: Result Comment: Fast ing Glucose result from 100 to 125 mg/dL suggests IMPAIRED HOMEOSTASIS per A.D.A. criteria. Performed By: #### L 503.0105, L100.0100, L500.4050 ####[facility] [address] [place], [address] Potassium [Moles/Vol] 3.9 mmol/L Normal 3.5-5.1 [facility] Comment on above: Performed By: #### L 503.0105, L100.0100, L500.4050 ####[facility] [address] [place], [address] Sodium [Moles/Vol] 140 mmol/L Normal 136-145 [facility] Comment on above: Performed By: #### L 503.0105, L100.0100, L500.4050 ####[facility] [address] [place], [address] T PROT 8.0 g/dL Normal 6.4-8.2 [facility] Comment on above: Performed By: #### L 503.0105, L100.0100, L500.4050 ####[facility] [address] [place], [address] Urea nitrogen [Mass/Vol] 16 mg/dL Normal 7-18 [facility] Comment on above: Performed By: #### L 503.0105, L100.0100, L500.4050 ####[facility] [address] [place], [address] Eosinophil percentageOrdered By: Addi Mario on 08-15-2024 Eosinophils/100 WBC (Bld) 3.2 % 0-5 [facility] Erythrocyte distribution wid th ratioOrdered By: Aleahjosh Mario on 08-15-2024 Erythrocyte distribution width (RBC) [Ratio] 14.6 % 11.6-14.6 [facility] Erythrocyte distribution wid th standard deviationOrdered By: Addi Mario on 08-15-2024 Erythrocyte distribution width (RBC) [Entitic vol] 53.1 fL High 35.1-43.9 [facility] Estimated glomerular filtrat ion rate (GFR) AmericanOrdered By: Addi Mario on 08-15-2024 Estimated GFR (MDRD) Amer 87 mL/min >60 [facility] Comment on above: GFR Calc Glomerular filtration rate ( GFR) estimationOrdered By: Addi Mario on 08-15-2024 Estimated GFR (MDRD) Non-Af Amer 72 mL/min >60 [facility] Comment on above: Non- GFR Calc Glucose measurementOrdered B y: Addi Mario on 08-15-2024 Glucose [Mass/Vol] 108 mg/dL High 74-106 [facility] Comment on above: Fasting Glucose resu lt from 100 to 125 mg/dL suggests IMPAIRED HOMEOSTASIS per A.D.A. criteria. Hematocrit Auto (Bld) [Volum e fraction]Ordered By: Addi Mario on 08-15-2024 Hematocrit (Bld) [Volume fraction] 38.7 % Low 40-54 [facility] Hemoglobin measurementOrdere d By: Addi Mario on 08-15-2024 Hemoglobin (Bld) [Mass/Vol] 12.5 g/dL Low 13.0-16.5 [facility] Immature granulocytes/100 WB C Auto (Bld)Ordered By: Addi Mario on 08-15-2024 Immature granulocytes/100 WBC (Bld) 0.300 % 0.0-0.9 [facility] Comment on above: IG% - Immature Granu locytes (promyelocytes, myelocytes and metamyelocytes) > 1% indicates that a LEFT SHIFT is Present. Internal Medicine Office Vis [place] 08-15-2024 Internal Medicine Office Visit [facility] [address] [place] [address] [place] [address] OFFICE VISIT Date of Service: 08/15/24 MR#: [id number] Acct: [id number] Name: JESSEE RUST Rep #: [id number] 8 : 1935 Provider: Dr. Addi alvarado MD Age/Sex: 89/M Location: [facility] Status: Signed Intake Vital Signs 05/16/24 13:23 [...] M FU Chief Complaint: Follow-up chronic conditions Automotive Services Manager Required: No Is patient in pain?: No [...] DAILY BPH #90 tabs 08/18/23 08/15/24 Rx akliczqe-sgk-stscl acid 0.4 1 tab PO DAILY supplement [...] hydrocortisone 2.5 % topical cream 1 applic HI BID-QID PRN 01/04/24 08/15/24 Rx with perineal [...] Hyponatremia Thrombocytope (more content not included)... Normal [facility] Laboratory - Chemistry and C hemistry - challengeOrdered By: Addi Mario on 08-15-2024 AST [Catalytic activity/Vol] 27 U/L 15-37 [facility] Lymphocytes Auto (Unsp spec) [#/Vol]Ordered By: Addi Mario on 08-15-2024 Lymphocytes (Bld) [#/Vol] 1.84 10*3/uL 0.83-4.5 1 [facility] Lymphocytes/100 WBC Auto (Un sp spec)Ordered By: Addi Mario on 08-15-2024 Lymphocytes/100 WBC (Bld) 31.2 % 19-41 [facility] MCV (mean corpuscular volume ) determinationOrdered By: Addi Mario on 08-15-2024 MCV (RBC) [Entitic vol] 98.2 fL High 80-94 [facility] Mean corpuscular hemoglobin (MCH) determinationOrdered By: Addi Mario on 08-15-2024 MCH (RBC) [Entitic mass] 31.7 pg 27.0-32.0 [facility] Mean corpuscular hemoglobin concentration (MCHC) determinationOrdered By: Addi Mario on 08-15-2024 MCHC (RBC) [Mass/Vol] 32.3 g/dL 32-36 [facility] Mean platelet volume determi nationOrdered By: Addi Mario on 08-15-2024 Platelet mean volume (Bld) [Entitic vol] 11.3 fL 6.2-12.0 [facility] Monocyte percentageOrdered B y: Addi Mario on 08-15-2024 Monocytes/100 WBC (Bld) 10.5 % High 0-10 [facility] Neutrophil percentageOrdered By: Addi Mario on 08-15-2024 Neutrophils/100 WBC (Bld) 54.1 % 47-70 [facility] Nucleated red blood cell per centageOrdered By: Addi Mario on 08-15-2024 Nucleated RBC/100 WBC (Bld) [Ratio] 0 % 0-5 [facility] Platelet countOrdered By: Aleah Mario on 08-15-2024 Platelets (Bld) [#/Vol] 129 10*3/uL Low 150-450 [facility] Potassium measurementOrdered By: Addi Mario on 08-15-2024 Potassium [Moles/Vol] 3.9 mmol/L 3.5-5.1 [facility] RBC Auto (Bld) [#/Vol]Ordere d By: Addi Mario on 08-15-2024 RBC (Bld) [#/Vol] 3.94 10*6/uL Low 4.6-6.2 [facility] Serum anion gap measurementO rdered By: Addi Mario on 08-15-2024 Anion gap [Moles/Vol] 5 mmol/L 5-15 [facility] Serum globulin measurementOr dered By: Addi Mario on 08-15-2024 Globulin (S) [Mass/Vol] 4.7 g/dL High 2.2-4.2 [facility] Serum or plasma alanine castellano otransferase (ALT) measurementOrdered By: Addi Mario on 08-15-2024 ALT [Catalytic activity/Vol] 21 U/L 16-61 [facility] Serum or plasma albumin tay urement (mass/volume)Ordered By: Addi Mario on 08-15-2024 Albumin [Mass/Vol] 3.3 g/dL 3.2-5.0 [facility] Serum or plasma alkaline lyndsey sphatase measurementOrdered By: Addi Mario on 08-15-2024 ALP [Catalytic activity/Vol] 91 U/L 45-117 [facility] Serum or plasma calcium tay urement (mass/volume)Ordered By: Addi Mario on 08-15-2024 Calcium [Mass/Vol] 9.6 mg/dL 8.5-10.1 [facility] Serum or plasma creatinine m easurement (mass/volume)Ordered By: Addi Mario on 08-15-2024 Creatinine [Mass/Vol] 1.04 mg/dL 0.70-1.30 [facility] Comment on above: The validity of the calculated GFR & GFRAA in patients over 70 years has not been determined. Clinical correlation is essential. Serum or plasma urea nitroge n measurement (mass/volume)Ordered By: Addi Mario on 08-15-2024 Urea nitrogen [Mass/Vol] 16 mg/dL 7-18 [facility] Sodium levelOrdered By: Arleth Mario on 08-15-2024 Sodium [Moles/Vol] 140 mmol/L 136-145 [facility] Total proteinOrdered By: Sonny Mraio on 08-15-2024 Protein [Mass/Vol] 8.0 g/dL 6.4-8.2 [facility] Vitamin B12on 08-15-2024 Cobalamin (Vitamin B12) [Mass/Vol] 992 pg/mL High 211-911 [facility] Comment on above: Performed By: #### L 503.0105, L100.0100, L500.4050 ####[facility] [address] [place], [place], [address] Vitamin B12 measurementOrder ed By: Addi Mario on 08-15-2024 Cobalamin (Vitamin B12) [Mass/Vol] 992 pg/mL High 211-911 [facility] White blood cell (WBC) count Ordered By: Addi Mario on 08-15-2024 WBC (Bld) [#/Vol] 5.9 10*3/uL 4.4-11.0 [facility] Urgent Care Visit Reporton 1 10-09-2023 Urgent Care Visit Report [facility] [address], [address] [place], [place] [address] OFFICE VISIT Date of Service: 08/09/24 MR#: [id number] Acct: [id number] Name: JESSEE RUST Rep #: [id number] 8 : 1935 Provider: BASSEM Loera Age/Sex: 89/M Location: [place] Status: Signed Intake Vital Signs 06/14/24 08:21 [...] PINKEYE Chief Complaint: Concern for pink eye Automotive Services Manager Required: No Accompanied by: Is patient in [...] heart health #90 09/15/23 08/09/24 Rx tabs aqgrjukk-ugg-orehn acid 0.4 1 tab PO DAILY supplement [...] hydrocortisone 2.5 % topical cream 1 applic HI BID-QID PRN 01/04/24 08/09/24 Rx with perineal [...] warm compresses to alleviate crusting. [facility] Medical History Perianal dermatitis CHF (congestive heart [...] foot shahram (more content not included)... Normal [facility] VISUAL FIELD 24-2 OU (BOTH E YES)on 07-30-2024 [facility] Radiology Study observation (narrative) [facility] Pulmonary Visit Reporton Pulmonary Visit Report [facility] of [address] [place] [address] OFFICE VISIT Date of Service: 06/14/24 MR#: [id number] Acct: [id number] Name: JESSEE RUST Rep #: [id number] 2 : 1935 Provider: HUAN Sharma Age/Sex: 89/M [facility] Status: Signed Assessment and Plan Assessment and [...] heart health #90 09/15/23 06/14/24 Rx tabs omfxyjmv-trd-mxjqf acid 0.4 1 tab PO DAILY supplement 12/02/23 06/14/24 History mg-lycopene 300 mcg-lutein 250 mcg tablet (Centrum Silver) netarsudil 0.02 %-la (more content not included)... Normal [facility] CBC W/Diff, Automatedon 08- Absolute Lymph 2.52 X10 3/uL Normal 0.83-4.51 [facility] Comment on above: Performed By: #### L 100.0100 ####[facility] [facility] [address] [place], [address] Absolute Neut 3.6 X10 3/uL Normal 2.0-7.7 [facility] Comment on above: Performed By: #### L 100.0100 ####[facility] [address] [place], [address] Basophils/100 WBC (Bld) 0.4 % Normal 0-1 [facility] Comment on above: Performed By: #### L 100.0100 ####[facility] [address] [place], [address] Eosinophils/100 WBC (Bld) 3.8 % Normal 0-5 [facility] Comment on above: Performed By: #### L 100.0100 ####[facility] [address] [place], [address] Erythrocyte distribution width (RBC) [Ratio] 14.1 % Normal 11.6-14.6 [facility] Comment on above: Performed By: #### L 100.0100 ####[facility] [address] [place], [address] Hematocrit (Bld) [Volume fraction] 36.4 % Low 40-54 [facility] Comment on above: Performed By: #### L 100.0100 ####[facility] [address] [place], [address] Hemoglobin (Bld) [Mass/Vol] 11.4 g/dL Low 13.0-16.5 [facility] Comment on above: Performed By: #### L 100.0100 ####[facility] [address] [place], [address] IG% 0.300 Normal 0.0-0.9 [facility] Comment on above: Result Comment: IG% - Immature Granulocytes (promyelocytes, myelocytes and metamyelocytes) > 1% indicates that a LEFT SHIFT is Present. Performed By: #### L 100.0100 ####[facility] [address] [place], [address] Lymphocytes/100 WBC (Bld) 34.2 % Normal 19-41 [facility] Comment on above: Performed By: #### L 100.0100 ####[facility] [address] [place], [address] MCH (RBC) [Entitic mass] 30.7 pg Normal 27.0-32.0 [facility] Comment on above: Performed By: #### L 100.0100 ####[facility] [address] [place], [address] MCHC (RBC) [Mass/Vol] 31.3 g/dL Low 32-36 [facility] Comment on above: Performed By: #### L 100.0100 ####[facility] [address] [place], [address] MCV (RBC) [Entitic vol] 98.1 fL High 80-94 [facility] Comment on above: Performed By: #### L 100.0100 ####[facility] [address] [place], [address] Monocytes/100 WBC (Bld) 12.2 % High 0-10 [facility] Comment on above: Performed By: #### L 100.0100 ####[facility] [address] [place], [address] Neutrophils/100 WBC (Bld) 49.1 % Normal 47-70 [facility] Comment on above: Performed By: #### L 100.0100 ####[facility] [address] [place], [address] Nucleated RBC (Bld) [#/Vol] 0 10*3/uL Normal 0-5 [facility] Comment on above: Performed By: #### L 100.0100 ####[facility] [address] [place], [address] Platelet mean volume (Bld) [Entitic vol] 11.6 fL Normal 6.2-12.0 [facility] Comment on above: Performed By: #### L 100.0100 ####[facility] [address] [place], [address] Platelets (Bld) [#/Vol] 145 10*3/uL Low 150-450 [facility] Comment on above: Performed By: #### L 100.0100 ####[facility] [address] [place], [address] RBC (Bld) [#/Vol] 3.71 10*6/uL Low 4.6-6.2 [facility] Comment on above: Performed By: #### L 100.0100 ####[facility] [address] [place], [address] RDW SD 50.7 fl High 35.1-43.9 [facility] Comment on above: Performed By: #### L 100.0100 ####[facility] [address] [place], [address] WBC (Bld) [#/Vol] 7.4 10*3/uL Normal 4.4-11.0 [facility] Comment on above: Performed By: #### L 100.0100 ####[facility] [address] [place], [address] Internal Medicine Office Vis gayla 05-16-2024 Internal Medicine Office Visit [facility] [address] [place], [place] [address] OFFICE VISIT Date of Service: 05/16/24 MR#: [id number] Acct: [id number] Name: JESSEE RUST Rep #: [id number] : 1935 Provider: Dr. Addi alvarado MD Age/Sex: 89/M Location: [facility] Status: Signed Intake Vital Signs 02/15/24 14:03 [...] 3 m fu Chief Complaint: 3m f/u Automotive Services Manager Required: No Accompanied by: Is patient in [...] heart health #90 09/15/23 05/16/24 Rx tabs mabrdklb-wtu-zrrja acid 0.4 1 tab PO DAILY supplement [...] hydrocortisone 2.5 % topical cream 1 applic HI BID-QID PRN 01/04/24 05/16/24 Rx with perineal [...] Degenerative di (more content not included)... Normal [facility] 05-15-2024 [facility] Telephone (OPHT[facility]) ---- JESSEE RUST ([id number]) 1935 M Date Time Provider Department 05/15/24 [facility] During your visit today, we recorded the [...] ON ELBOWS (more content not included)... Normal [facility] 6 Minute Walk Teston 024 6 Minute Walk Test y [facility]/Neurology [address] [place] [address] MR#: [id number] Acct: [id number] Name: JESSEE RUST Rep #: [id number] : 1935 89 From: Quentin Beltran DO Referring Dr: Ailin Sharma NP DIRECTOR MEDICAL ECONOMICS-C Status: REG CLI Location: PSN Date: Sex: M C PSN 6 Minute Walk Test 6 Minute Walk Test 6 Minute Walk Test: 6 Minute Walk Test PSN:6-Minute Walk Test Start: 04/26/24 14:05 Freq: Status: Active Protocol: RESP.6MINW Document 04/26/24 13:45 EW (Rec: 04/26/24 14:19 EW [id number]) 6 Minute Walk Test Date Performed 04/26/24 [...] CC: Date Dictated: 04/30/24653 Date Transcribed: 04/30/24653 Insulating Machine Operator: Dr. Quentin Beltran, Signed Normal [facility] Stool Occult Blood iFOBon STOB Positive Normal [facility] Comment on above: Performed By: #### M 100.7900, L400.0001 ####[facility] [address] [place], [place], [address] Urinalysis, Completeon 04-21 BACTERIA 1+ /hpf Normal None Seen [facility] Comment on above: Order Comment: EBONY [place] TO SPECIFY Performed By: #### M 100.7900, L400.0001 ####[facility] [address] [place], [place], [address] WBC 10-25 SEEN Normal 0-5 [facility] Comment on above: Order Comment: COLLE CTOR TO SPECIFY Performed By: #### M 100.7900, L400.0001 ####[facility] [address] [place], [address] EPI,SQUAMOUS 0 SEEN Normal 0-5 [facility] Comment on above: Order Comment: COLLE CTOR TO SPECIFY Performed By: #### M 100.7900, L400.0001 ####[facility] [address] [place], [address] Mucus Ql (Urine sed) 0 SEEN Normal [facility] Comment on above: Order Comment: [facility] CTOR TO SPECIFY Performed By: #### M 100.7900, L400.0001 ####[facility] [address] [place], [address] RBC 0 SEEN Normal 0-5 [facility] Comment on above: Order Comment: [facility] CTOR TO SPECIFY Performed By: #### M 100.7900, L400.0001 ####[facility] [address] [place], [address] 12 Lead EKG performed by [facility] on 04-19-2024 12 Lead EKG performed by [facility] [address] 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 ABNORMAL Electronically signed on 04/23/2024 at 10:[address] Dash Kelley Software Version 8610 04/23/24 1052 Date Ava LUEVANO CC: Dr. Addi Mario MD Date Dictated: 04/19/24 1331 Date Transcribed: 04/19/241330 Insulating Machine Operator: BRYANNA Signed Normal [facility] Cardiology Visit Reporton Cardiology Visit Report [facility] [address] [place] [address] OFFICE VISIT Date of Service: 04/19/24 MR#: [id number] Acct: [id number] Name: JESSEE RUST Rep #: [id number] : 1935 Provider: BASSEM Murcia Age/Sex: [...] evidence of ischemia. He was evaluated at [facility] in November 2023 for non-ST [...] 09/15/23 04/19/24 Rx tablet pain #25 tabs jeiyqtag-ttp-vveym acid 0.4 1 tab PO DAILY supplement [...] hydrocortisone 2.5 % topical cream 1 applic HI BID-QID PRN 01/04/24 04/19/24 Rx with perineal applicator hemorrhoids #30 grams cetirizine 10 mg tablet 10 mg PO DAILY PRN 01/23/24 04/19/24 History sennosides 8.6 mg-docusate sodium 1 tab-cap PO QHS (more content not included)... Normal [facility] Basic Metabolic Profile (BMP )on 04-17-2024 BUN/CRE 16.4 RATIO Normal 10-20 [facility] Comment on above: Performed By: #### L 100.0500, L500.2500 ####[facility] [address] [place], [address] CA,Total 9.3 mg/dL Normal 8.5-10.1 [facility] Comment on above: Performed By: #### L 100.0500, L500.2500 ####[facility] [address] [place], [address] Chloride [Moles/Vol] 101 mmol/L Normal 98-107 [facility] Comment on above: Performed By: #### L 100.0500, L500.2500 ####[facility] [address] [place], [address] CO2 [Moles/Vol] 34.0 mmol/L High 21.0-32.0 [facility] Comment on above: Performed By: #### L 100.0500, L500.2500 ####[facility] [address] [place], [address] Creatinine [Mass/Vol] 0.98 mg/dL Normal 0.70-1.30 [facility] Comment on above: Result Comment: The validity of the calculated GFR GFRAA in patients over 70 years has not been determined. Clinical correlation is essential. Performed By: #### L 100.0500, L500.2500 ####[facility] [address] [place], [address] EST GFR - AA 94 mL/min Normal >60 [facility] Comment on above: Result Comment: Afri can Cymraes GFR Calc Performed By: #### L 100.0500, L500.2500 ####[facility] [address] [place], [address] GAP 3 Low 5-15 [facility] Comment on above: Performed By: #### L 100.0500, L500.2500 ####[facility] [address] [place], [address] GFR/1.73 sq M.predicted among non-blacks MDRD (S/P/Bld) [Vol rate/Area] 77 mL/min/{1.73_m2} Normal >60 [facility] Comment on above: Result Comment: Non- GFR Calc Performed By: #### L 100.0500, L500.2500 ####[facility] [address] [place], [address] Glucose [Mass/Vol] 92 mg/dL Normal 74-106 [facility] Comment on above: Performed By: #### L 100.0500, L500.2500 ####[facility] [address] [place], [address] Potassium [Moles/Vol] 3.8 mmol/L Normal 3.5-5.1 [facility] Comment on above: Performed By: #### L 100.0500, L500.2500 ####[facility] [address] [place], [address] Sodium [Moles/Vol] 138 mmol/L Normal 136-145 [facility] Comment on above: Performed By: #### L 100.0500, L500.2500 ####[facility] [address] [place], [address] Urea nitrogen [Mass/Vol] 16 mg/dL Normal 7-18 [facility] Comment on above: Performed By: #### L 100.0500, L500.2500 ####[facility] [address] [place], [address] CBC-Complete Blood Cnt No Di ffon 04-17-2024 Erythrocyte distribution width (RBC) [Ratio] 14.4 % Normal 11.6-14.6 [facility] Comment on above: Performed By: #### L 100.0500, L500.2500 ####[facility] [address] [place], [address] Hematocrit (Bld) [Volume fraction] 35.9 % Low 40-54 [facility] Comment on above: Performed By: #### L 100.0500, L500.2500 ####[facility] [address] [place], [address] Hemoglobin (Bld) [Mass/Vol] 11.4 g/dL Low 13.0-16.5 [facility] Comment on above: Performed By: #### L 100.0500, L500.2500 ####[facility] [address] [place], [address] MCH (RBC) [Entitic mass] 31.0 pg Normal 27.0-32.0 [facility] Comment on above: Performed By: #### L 100.0500, L500.2500 ####[facility] [address] [place], [address] MCHC (RBC) [Mass/Vol] 31.8 g/dL Low 32-36 [facility] Comment on above: Performed By: #### L 100.0500, L500.2500 ####[facility] [address] [place], [address] MCV (RBC) [Entitic vol] 97.6 fL High 80-94 [facility] Comment on above: Performed By: #### L 100.0500, L500.2500 ####[facility] [address] [place], [address] Platelet mean volume (Bld) [Entitic vol] 11.7 fL Normal 6.2-12.0 [facility] Comment on above: Performed By: #### L 100.0500, L500.2500 ####[facility] [address] [place], [address] Platelets (Bld) [#/Vol] 138 10*3/uL Low 150-450 [facility] Comment on above: Performed By: #### L 100.0500, L500.2500 ####[facility] [address] [place], [address] RBC (Bld) [#/Vol] 3.68 10*6/uL Low 4.6-6.2 [facility] Comment on above: Performed By: #### L 100.0500, L500.2500 ####[facility] [address] [place], [address] RDW SD 51.3 fl High 35.1-43.9 [facility] Comment on above: Performed By: #### L 100.0500, L500.2500 ####[facility] [address] [place], [address] WBC (Bld) [#/Vol] 7.0 10*3/uL Normal 4.4-11.0 [facility] Comment on above: Performed By: #### L 100.0500, L500.2500 ####[facility] [address] [place], [address] [facility] Telephone ([facility]) ---- JESSEE RUST ([id number]) 1935 M Date Time Provider Department 03/14/24 [facility] During your visit today, we recorded the following information about you: Lucina Friedman LSW 03/14/2024 1:45 PM Signed abatement worker received a consult order from Dr. Shea who is referring the patient to the [facility] for low vision services. abatement worker called the patient and discussed the referral and sight center services. Patient states that the sight center is too far from [place], [place] and has requested SW to send him vision resources. abatement worker and patient discussed use of I-Phone and I-Pad vision accessibility for improved reading and using [employer] for additional assistance with reading information. Patient is very comfortable using assistive technology and prefers to the methods he is currently using for visual adaptations. Discussed at length [facility] [employer] YouTube videos for tech [...] it and get back to this SW. abatement worker to email vision resources. 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 - ursodiol (DANNILELE) 250 mg tablet Take 2 tablets by [...] affected a (more content not included)... Normal [facility] CONSULT TO KEVIN Arias 03-14-2024 Patient declined sight center. Requested vision resources. Thank you. [facility] OCT OPTIC NERVE CIRRUS OU (B OTH EYES)on 03-12-2024 [facility] Radiology Study observation (narrative) [facility] Absolute lymphocyte countOrd ered By: Arsenio Mcgregor on 12-30-2023 Lymphocytes Auto (Unsp spec) [#/Vol] 2.79 10*3/uL 0.83-4.51 [facility] Automated lymphocyte count a s percentage of total leukocytesOrdered By: Arsenio Mcgregor on 12-30-2023 Lymphocytes/100 WBC Auto (Unsp spec) 35.0 % 19-41 [facility] Basophil percentageOrdered B y: Arsenio Mcgregor on 12-30-2023 Basophils/100 WBC (Bld) 0.9 % 0-1 [facility] Chloride [Moles/Vol] 105 mmol/L 98-107 [facility] Eosinophils/100 WBC (Bld) 5.4 % 0-5 [facility] Glucose [Mass/Vol] 103 mg/dL 74-106 [facility] Comment on above: Fasting Glucose resu lt from 100 to 125 mg/dL suggests IMPAIRED HOMEOSTASIS per A.D.A. criteria. Hemoglobin (Bld) [Mass/Vol] 9.8 g/dL 13.0-16.5 [facility] Monocytes/100 WBC (Bld) 13.6 % 0-10 [facility] Neutrophils (Bld) [#/Vol] 3.6 10*3/uL 2.0-7.7 [facility] Neutrophils/100 WBC (Bld) 44.5 % 47-70 [facility] Potassium [Moles/Vol] 4.2 mmol/L 3.5-5.1 [facility] Sodium [Moles/Vol] 138 mmol/L 136-145 [facility] WBC (Bld) [#/Vol] 8.0 10*3/uL 4.4-11.0 [facility] Determination of erythrocyte mean corpuscular volume (MCV)Ordered By: Arsenio Mcgregor on 12-30-2023 MCV (RBC) [Entitic vol] 96.4 fL 80-94 [facility] Erythrocyte distribution wid th ratioOrdered By: Arsenio Mcgregor on 12-30-2023 Erythrocyte distribution width (RBC) [Ratio] 15.6 % 11.6-14.6 [facility] Erythrocyte distribution wid th standard deviationOrdered By: Arsenio Mcgregor on 12-30-2023 Erythrocyte distribution width (RBC) [Entitic vol] 55.5 fL 35.1-43.9 [facility] Hematocrit Auto (Bld) [Volum e fraction]Ordered By: Arsenio Mcgregor 12-30-2023 Hematocrit (Bld) [Volume fraction] 31.8 % 40-54 [facility] Immature granulocytes/100 WB C Auto (Bld)Ordered By: Arsenio Mcgregor 12-30-2023 Immature granulocytes/100 WBC (Bld) 0.600 % 0.0-0.9 [facility] Comment on above: IG% - Immature Granu locytes (promyelocytes, myelocytes and metamyelocytes) > 1% indicates that a LEFT SHIFT is Present. Laboratory - Chemistry and C hemistry - challengeOrdered By: Arsenio Mcgregor 12-30-2023 CO2 [Moles/Vol] 33.0 mmol/L 21.0-32.0 [facility] Urea nitrogen/Creatinine [Mass ratio] 19.0 mg/mg 10-20 [facility] Laboratory - Hematology and Cell countsOrdered By: Arsenio Mcgregor 12-30-2023 MCH (RBC) [Entitic mass] 29.7 pg 27.0-32.0 [facility] MCHC (RBC) [Mass/Vol] 30.8 g/dL 32-36 [facility] Nucleated RBC/100 WBC (Bld) [Ratio] 0 % 0-5 [facility] Platelet mean volume (Bld) [Entitic vol] 9.7 fL 6.2-12.0 [facility] Platelets (Bld) [#/Vol] 183 10*3/uL 150-450 [facility] No Panel InformationOrdered By: Arsenio Mcgregor on 12-30-2023 Estimated Creatinine Clearance Calc 51.48 ml/min [facility] Estimated GFR (MDRD) Amer 70 mL/min >60 [facility] Comment on above: GFR Calc Estimated GFR (MDRD) Non-Af Amer 58 mL/min >60 [facility] Comment on above: Non- GFR Calc RBC Auto (Bld) [#/Vol]Ordere d By: Arsenio Mcgregor on 12-30-2023 RBC (Bld) [#/Vol] 3.30 10*6/uL 4.6-6.2 [facility] Serum or plasma calcium tay urement (mass/volume)Ordered By: Arsenio Mcgregor on 12-30-2023 Calcium [Mass/Vol] 9.2 mg/dL 8.5-10.1 [facility] Serum or plasma creatinine m easurement (mass/volume)Ordered By: Arsenio Mcgregor on 12-30-2023 Creatinine [Mass/Vol] 1.26 mg/dL 0.70-1.30 [facility] Comment on above: The validity of the calculated GFR & GFRAA in patients over 70 years has not been determined. Clinical correlation is essential. Serum or plasma urea nitroge n measurement (mass/volume)Ordered By: Arsenio Mcgregor on 12-30-2023 Urea nitrogen [Mass/Vol] 24 mg/dL 7-18 [facility] Thin prep Papanicolaou smear with manual screeningOrdered By: Arsenio Mcgregor 12-30-2023 Thin prep Papanicolaou smear with manual screening 0 5-15 [facility] Absolute lymphocyte countOrd ered By: Arsenio Mcgregor on 12-23-2023 Lymphocytes Auto (Unsp spec) [#/Vol] 1.50 10*3/uL 0.83-4.51 [facility] Automated lymphocyte count a s percentage of total leukocytesOrdered By: Arsenio Mcgregor on 12-23-2023 Lymphocytes/100 WBC Auto (Unsp spec) 18.8 % 19-41 [facility] Basophil percentageOrdered B y: Arsenio Mcgregor on 12-23-2023 Basophils/100 WBC (Bld) 0.5 % 0-1 [facility] Chloride [Moles/Vol] 103 mmol/L 98-107 [facility] Eosinophils/100 WBC (Bld) 2.0 % 0-5 [facility] Glucose [Mass/Vol] 102 mg/dL 74-106 [facility] Comment on above: Fasting Glucose resu lt from 100 to 125 mg/dL suggests IMPAIRED HOMEOSTASIS per A.D.A. criteria. Hemoglobin (Bld) [Mass/Vol] 10.0 g/dL 13.0-16.5 [facility] Monocytes/100 WBC (Bld) 16.8 % 0-10 [facility] Neutrophils (Bld) [#/Vol] 4.9 10*3/uL 2.0-7.7 [facility] Neutrophils/100 WBC (Bld) 61.5 % 47-70 [facility] Potassium [Moles/Vol] 4.0 mmol/L 3.5-5.1 [facility] Sodium [Moles/Vol] 136 mmol/L 136-145 [facility] WBC (Bld) [#/Vol] 8.0 10*3/uL 4.4-11.0 [facility] Determination of erythrocyte mean corpuscular volume (MCV)Ordered By: Arsenio Mcgregor on 12-23-2023 MCV (RBC) [Entitic vol] 95.3 fL 80-94 [facility] Erythrocyte distribution wid th ratioOrdered By: Arsenio Mcgregor on 12-23-2023 Erythrocyte distribution width (RBC) [Ratio] 15.6 % 11.6-14.6 [facility] Erythrocyte distribution wid th standard deviationOrdered By: Arsenio Mcgregor on 12-23-2023 Erythrocyte distribution width (RBC) [Entitic vol] 54.6 fL 35.1-43.9 [facility] Hematocrit Auto (Bld) [Volum e fraction]Ordered By: Arsenio Mcgregor on 12-23-2023 Hematocrit (Bld) [Volume fraction] 32.1 % 40-54 [facility] Immature granulocytes/100 WB C Auto (Bld)Ordered By: Arsenio Mcgregor on 12-23-2023 Immature granulocytes/100 WBC (Bld) 0.400 % 0.0-0.9 [facility] Comment on above: IG% - Immature Granu locytes (promyelocytes, myelocytes and metamyelocytes) > 1% indicates that a LEFT SHIFT is Present. Laboratory - Chemistry and C hemistry - challengeOrdered By: Arsenio Mcgregor on 12-23-2023 CO2 [Moles/Vol] 30.0 mmol/L 21.0-32.0 [facility] Urea nitrogen/Creatinine [Mass ratio] 26.4 mg/mg 10-20 [facility] Laboratory - Hematology and Cell countsOrdered By: Arsenio Mcgregor on 12-23-2023 MCH (RBC) [Entitic mass] 29.7 pg 27.0-32.0 [facility] MCHC (RBC) [Mass/Vol] 31.2 g/dL 32-36 [facility] Nucleated RBC/100 WBC (Bld) [Ratio] 0 % 0-5 [facility] Platelet mean volume (Bld) [Entitic vol] 9.8 fL 6.2-12.0 [facility] Platelets (Bld) [#/Vol] 188 10*3/uL 150-450 [facility] No Panel InformationOrdered By: Arsenio Mcgregor on 12-23-2023 Estimated Creatinine Clearance Calc 59.39 ml/min [facility] Estimated GFR (MDRD) Amer 82 mL/min >60 [facility] Comment on above: GFR Calc Estimated GFR (MDRD) Non-Af Amer 67 mL/min >60 [facility] Comment on above: Non- GFR Calc RBC Auto (Bld) [#/Vol]Ordere d By: Arsenio Mcgregor on 12-23-2023 RBC (Bld) [#/Vol] 3.37 10*6/uL 4.6-6.2 [facility] Serum or plasma calcium tay urement (mass/volume)Ordered By: Arsenio Mcgregor 12-23-2023 Calcium [Mass/Vol] 9.0 mg/dL 8.5-10.1 [facility] Serum or plasma creatinine m easurement (mass/volume)Ordered By: Arsenio Mcgregor on 12-23-2023 Creatinine [Mass/Vol] 1.10 mg/dL 0.70-1.30 [facility] Comment on above: The validity of the calculated GFR & GFRAA in patients over 70 years has not been determined. Clinical correlation is essential. Serum or plasma urea nitroge n measurement (mass/volume)Ordered By: Arsenio Mcgregor on 12-23-2023 Urea nitrogen [Mass/Vol] 29 mg/dL 7-18 [facility] Thin prep Papanicolaou smear with manual screeningOrdered By: Arsenio Mcgregor on 12-23-2023 Thin prep Papanicolaou smear with manual screening 3 5-15 [facility] Basophil percentageOrdered B y: Arsenio Mcgregor on 12-10-2023 Basophil percentage 50-100 SEEN /hpf 0-5 [facility] Bilirubin Test strip Ql (U)O rdered By: Arsenio Mcgregor on 12-10-2023 Bilirubin Ql (U) Negative Negative [facility] Culture, urineOrdered By: Izaiah Mcgregor on 12-10-2023 Bacteria identified Cx Nom (U) Presumptive C albicans [facility] Bacteria identified Cx Nom (U) Negative [facility] Hyaline casts LM.LPF (Urine sed) [#/Area]Ordered By: Arsenio Mcgregor on 12-10-2023 Hyaline casts (Urine sed) [#/Area] 0 /[LPF] 0-5 [facility] Ketones Test strip Ql (U)Ord ered By: Arsenio Mcgregor on 12-10-2023 Ketones Ql (U) Negative Negative [facility] Mucus LM Ql (Urine sed)Order ed By: Arsenio Mcgregor on 12-10-2023 Mucus Ql (Urine sed) 1+ /hpf [facility] Nitrite Test strip Ql (U)Ord ered By: Arsenio Mcgregor on 12-10-2023 Nitrite Ql (U) Negative Negative [facility] No Panel InformationOrdered By: Arsenio Mcgregor on 12-10-2023 Urine RBC 25-50 SEEN /hpf 0-5 [facility] Protein Test strip Ql (U)Ord ered By: Arsenio Mcgregor on 12-10-2023 Protein Ql (U) 30 mg/dl Negative [facility] Squamous epithelial cells de tection in urine sediment by light microscopyOrdered By: Arsenio Mcgregor on 12-10-2023 Epithelial cells.squamous LM Ql (Urine sed) 0-5 SEEN /hpf 0-5 [facility] Urine blood detectionOrdered By: Arsenio Mcgregor on 12-10-2023 RBC Ql (U) 250 /ul Negative [facility] Urine clarityOrdered By: Arsenio Mcgregor on 12-10-2023 Clarity (U) Sl. Cloudy Clear [facility] Urine color determinationOrd ered By: Arsenio Mcgregor on 12-10-2023 Color (U) Yellow Yellow [facility] Urine glucose detectionOrder ed By: Arsenio Mcgregor on 12-10-2023 Glucose Ql (U) Normal mg/dl Normal [facility] Urine leukocyte esterase det ection by dipstickOrdered By: Arsenio Mcgregor on 12-10-2023 Leukocyte esterase Test strip Ql (U) 500 /ul Negative [facility] Urine pHOrdered By: Arsenio Mcgregor on 12-10-2023 pH (U) 6.0 [pH] 5.0 - 8.0 [facility] Urine sediment bacteria coun t by microscopy (number/high power field)Ordered By: Arsenio Mcgregor on 12-10-2023 Bacteria LM.HPF (Urine sed) [#/Area] 1 /[HPF] None Seen [facility] Urine specific gravity measu rementOrdered By: Arsenio Mcgregor on 12-10-2023 Specific gravity (U) [Rel density] 1.010 1.002-1.030 [facility] Urine urobilinogen measureme ntOrdered By: Arsenio Mcgregor on 12-10-2023 Urobilinogen Ql (U) Normal mg/dl Normal [facility] Blood manual differential co mment interpretation (narrative result)Ordered By: Arsenio Mcgregor on 12-09-2023 Manual differential comment Theodore (Bld) [Interp] SCANNED [facility] Comment on above: MONOCYTOSIS PRESENT Absolute lymphocyte countOrd ered By: Klaudia Gonzales on 12-08-2023 Lymphocytes Auto (Unsp spec) [#/Vol] 1.74 10*3/uL 0.83-4.51 [facility] Automated lymphocyte count a s percentage of total leukocytesOrdered By: Klaudia Gonzales on 12-08-2023 Lymphocytes/100 WBC Auto (Unsp spec) 19.1 % 19-41 [facility] Basophil percentageOrdered B y: Klaudia Gonzales on 12-08-2023 Basophils/100 WBC (Bld) 0.3 % 0-1 [facility] Chloride [Moles/Vol] 104 mmol/L 98-107 [facility] Eosinophils/100 WBC (Bld) 1.7 % 0-5 [facility] Glucose [Mass/Vol] 114 mg/dL 74-106 [facility] Comment on above: Fasting Glucose resu lt from 100 to 125 mg/dL suggests IMPAIRED HOMEOSTASIS per A.D.A. criteria. Hemoglobin (Bld) [Mass/Vol] 9.7 g/dL 13.0-16.5 [facility] Monocytes/100 WBC (Bld) 15.0 % 0-10 [facility] Neutrophils (Bld) [#/Vol] 5.7 10*3/uL 2.0-7.7 [facility] Neutrophils/100 WBC (Bld) 63.1 % 47-70 [facility] Potassium [Moles/Vol] 3.7 mmol/L 3.5-5.1 [facility] Sodium [Moles/Vol] 138 mmol/L 136-145 [facility] WBC (Bld) [#/Vol] 9.1 10*3/uL 4.4-11.0 [facility] Determination of erythrocyte mean corpuscular volume (MCV)Ordered By: Klaudia Gonzales on 12-08-2023 MCV (RBC) [Entitic vol] 93.4 fL 80-94 [facility] Erythrocyte distribution wid th ratioOrdered By: Klaudiasara Gonzales on 12-08-2023 Erythrocyte distribution width (RBC) [Ratio] 15.2 % 11.6-14.6 [facility] Erythrocyte distribution wid th standard deviationOrdered By: [facility] 12-[facility]-2023 Erythrocyte distribution width (RBC) [Entitic vol] 52.7 fL 35.1-43.9 [facility] Hematocrit Auto (Bld) [Volum e fraction]Ordered By: [facility] Janet on 12-08-2023 Hematocrit (Bld) [Volume fraction] 29.8 % 40-54 [facility] Immature granulocytes/100 WB C Auto (Bld)Ordered By: Klaudia Gonzales on 12-08-2023 Immature granulocytes/100 WBC (Bld) 0.800 % 0.0-0.9 [facility] Comment on above: IG% - Immature Granu locytes (promyelocytes, myelocytes and metamyelocytes) > 1% indicates that a LEFT SHIFT is Present. Laboratory - Chemistry and C hemistry - challengeOrdered By: Klaudia Gonzales on 12-08-2023 CO2 [Moles/Vol] 28.0 mmol/L 21.0-32.0 [facility] Urea nitrogen/Creatinine [Mass ratio] 19.2 mg/mg 10-20 [facility] Laboratory - Hematology and Cell countsOrdered By: Klaudia Gonzales on 12-08-2023 MCH (RBC) [Entitic mass] 30.4 pg 27.0-32.0 [facility] MCHC (RBC) [Mass/Vol] 32.6 g/dL 32-36 [facility] Nucleated RBC/100 WBC (Bld) [Ratio] 0 % 0-5 [facility] Platelet mean volume (Bld) [Entitic vol] 10.4 fL 6.2-12.0 [facility] Platelets (Bld) [#/Vol] 134 10*3/uL 150-450 [facility] No Panel InformationOrdered By: Klaudia Gonzales on 12-08-2023 Atypical Lymphocytes RARE % [facility] Estimated Creatinine Clearance Calc 50.84 ml/min [facility] Estimated GFR (MDRD) Amer 67 mL/min >60 [facility] Comment on above: GFR Calc Estimated GFR (MDRD) Non-Af Amer 56 mL/min >60 [facility] Comment on above: Non- GFR Calc RBC Auto (Bld) [#/Vol]Ordere d By: Klaudia Gonzales on 12-08-2023 RBC (Bld) [#/Vol] 3.19 10*6/uL 4.6-6.2 [facility] Serum or plasma calcium tay urement (mass/volume)Ordered By: Klaudia Gonzales on 12-08-2023 Calcium [Mass/Vol] 8.7 mg/dL 8.5-10.1 [facility] Serum or plasma creatinine m easurement (mass/volume)Ordered By: Klaudia Gonzales on 12-08-2023 Creatinine [Mass/Vol] 1.30 mg/dL 0.70-1.30 [facility] Comment on above: The validity of the calculated GFR & GFRAA in patients over 70 years has not been determined. Clinical correlation is essential. Serum or plasma urea nitroge n measurement (mass/volume)Ordered By: Klaudia Gonzales on 12-08-2023 Urea nitrogen [Mass/Vol] 25 mg/dL 7-18 [facility] Thin prep Papanicolaou smear with manual screeningOrdered By: Klaudia Gonzales on 12-08-2023 Thin prep Papanicolaou smear with manual screening 6 5-15 [facility] Blood manual differential co mment interpretation (narrative result)Ordered By: Klaudia Gonzales on 12-07-2023 Manual differential comment Theodore (Bld) [Interp] SCANNED [facility] Laboratory - Chemistry and C hemistry - challengeOrdered By: Vanessa Simmons on 12-07-2023 Magnesium [Mass/Vol] 2.0 mg/dL 1.6-2.6 [facility] Activated partial thrombopla stin time (aPTT) in platelet poor plasma by coagulation aOrdered By: Miguelito Laguna on 12-03-2023 aPTT Coag (PPP) [Time] 71.0 s 24.1-36.2 [facility] Review by pathologistOrdered By: Miguelito Laguna on 12-03-2023 Pathologist review Theodore (Unsp spec) [Interp] Reviewed [facility] Comment on above: Previous reported re sult: Jeri rojas Edited by: NORA on 12/06/23:1403Neutrophilic leukocytosis with left shift.Normocytic anemia.Mild Thrombocytopenia.Clinical correlation necessary.Marcelo Perez M.D. 12/06/23 AMENDED REPORT 12/06/23 1403 PATH REV previously reported as: Jeri rojas Absolute lymphocyte countOrd ered By: Antonio James on 12-02-2023 Lymphocytes Auto (Unsp spec) [#/Vol] 1.02 10*3/uL 0.83-4.51 [facility] Activated partial thrombopla stin time (aPTT) in platelet poor plasma by coagulation aOrdered By: Antonio James on 12-02-2023 aPTT Coag (PPP) [Time] 34.4 s 24.1-36.2 [facility] Assessment of wrist artery p atency prior to arterial punctureOrdered By: Antonio James on 12-02-2023 Arterial patency Wrist artery --pre arterial puncture Positive [facility] Automated lymphocyte count a s percentage of total leukocytesOrdered By: Antonio Irmajanay on 12-02-2023 Lymphocytes/100 WBC Auto (Unsp spec) 11.5 % 19-41 [facility] Base excessOrdered By: Antonio Solisjanay on 12-02-2023 Base excess Calc (BldV) [Moles/Vol] 1 mmol/L -2-2 [facility] Basophil percentageOrdered B y: Antonio Irmajanay on 12-02-2023 Lactate [Moles/Vol] 2.3 mmol/L 0.4-2.0 [facility] Comment on above: Critical Result(s) C alled at: 18:41:24 12/02/2023 by: Ev Matthews. Results read back by same. Basophil percentage 26 mmol/L [facility] Basophils/100 WBC (Bld) 93 % 95-99 [facility] Basophil percentage 10-25 SEEN /hpf 0-5 [facility] Chloride [Moles/Vol] 100 mmol/L 98-107 [facility] Glucose [Mass/Vol] 134 mg/dL 74-106 [facility] Comment on above: Fasting Glucose resu lt greater than or equal to 126 mg/dL suggests DIABETES MELLITUS per A.D.A. criteria. Lactate [Moles/Vol] 2.1 mmol/L 0.4-2.0 [facility] Comment on above: Critical Result(s) C alled at: 14:16:35 12/02/2023 by: Lili Ricardo. Results read back by same. Potassium [Moles/Vol] 3.8 mmol/L 3.5-5.1 [facility] Sodium [Moles/Vol] 134 mmol/L 136-145 [facility] Basophils/100 WBC (Bld) 0.2 % 0-1 [facility] Eosinophils/100 WBC (Bld) 0.5 % 0-5 [facility] Hemoglobin (Bld) [Mass/Vol] 12.3 g/dL 13.0-16.5 [facility] Monocytes/100 WBC (Bld) 4.1 % 0-10 [facility] Neutrophils (Bld) [#/Vol] 7.4 10*3/uL 2.0-7.7 [facility] Neutrophils/100 WBC (Bld) 83.1 % 47-70 [facility] WBC (Bld) [#/Vol] 8.9 10*3/uL 4.4-11.0 [facility] Bilirubin Test strip Ql (U)O rdered By: Antonio James on 12-02-2023 Bilirubin Ql (U) Negative Negative [facility] Culture, urineOrdered By: Jus James on 12-02-2023 Bacteria identified Cx Nom (U) Escherichia coli [facility] Determination of erythrocyte mean corpuscular volume (MCV)Ordered By: Antonio James on 12-02-2023 MCV (RBC) [Entitic vol] 95.2 fL 80-94 [facility] Erythrocyte distribution wid th ratioOrdered By: Antonio Jaems on 12-02-2023 Erythrocyte distribution width (RBC) [Ratio] 15.0 % 11.6-14.6 [facility] Erythrocyte distribution wid th standard deviationOrdered By: Antonio James on 12-02-2023 Erythrocyte distribution width (RBC) [Entitic vol] 52.5 fL 35.1-43.9 [facility] Hematocrit Auto (Bld) [Volum e fraction]Ordered By: Antonio James on 12-02-2023 Hematocrit (Bld) [Volume fraction] 39.3 % 40-54 [facility] Immature granulocytes/100 WB C Auto (Bld)Ordered By: Antonio James on 12-02-2023 Immature granulocytes/100 WBC (Bld) 0.600 % 0.0-0.9 [facility] Comment on above: IG% - Immature Granu locytes (promyelocytes, myelocytes and metamyelocytes) > 1% indicates that a LEFT SHIFT is Present. Ketones Test strip Ql (U)Ord ered By: Antonio James on 12-02-2023 Ketones Ql (U) Negative Negative [facility] Laboratory - Chemistry and C hemistry - challengeOrdered By: Antonio James on 12-02-2023 CO2 [Moles/Vol] 29.0 mmol/L 21.0-32.0 [facility] Urea nitrogen/Creatinine [Mass ratio] 14.2 mg/mg 10-20 [facility] Laboratory - CoagulationOrde red By: Antonoi James on 12-02-2023 INR Coag (Bld) [Relative time] 1.2 {INR} [facility] PT Coag (PPP) [Time] 15.1 s 11.7-14.9 [facility] Laboratory - Hematology and Cell countsOrdered By: Antonio James on 12-02-2023 MCH (RBC) [Entitic mass] 29.8 pg 27.0-32.0 [facility] MCHC (RBC) [Mass/Vol] 31.3 g/dL 32-36 [facility] Nucleated RBC/100 WBC (Bld) [Ratio] 0 % 0-5 [facility] Platelet mean volume (Bld) [Entitic vol] 11.4 fL 6.2-12.0 [facility] Platelets (Bld) [#/Vol] 125 10*3/uL 150-450 [facility] Laboratory - Microbiology an d Antimicrobial susceptibilityOrdered By: Antonio James on 12-02-2023 Bacteria identified 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 [facility] SARS-CoV-2 (COVID-19) RNA ANA+probe Ql (Unsp spec) [facility] Measurement, pHOrdered By: Maria Del Carmen James on 12-02-2023 pH (Unsp spec) 7.48 [pH] 7.35-7.45 [facility] Mucus LM Ql (Urine sed)Order ed By: Antonio James on 12-02-2023 Mucus Ql (Urine sed) 0 SEEN /hpf [facility] Nitrite Test strip Ql (U)Ord ered By: Antonio James on 12-02-2023 Nitrite Ql (U) Negative Negative [facility] No Panel InformationOrdered By: Antonio James on 12-02-2023 Troponin I High Sensitivity 829 pg/mL 3.0-78.0 [facility] Comment on above: Critical Result(s) C alled at: 17:02:54 12/02/2023 by: Ev Zaidi to [facility]. Results read back by same. Please Note: New Test Units and Gender Specific Reference Ranges. For more information see Policy Stat Procedure [place] High Sensitivity Troponin (TNIH) and attachments. Arterial Blood Partial Pressure CO2 33.1 mmHg 35-45 [facility] Arterial Blood Partial Pressure O2 62 mmHG 75-100 [facility] Blood Gas Bicarbonate Actual 24.6 mmol/L 22-26 [facility] Blood Gas Oxygen Percent 21.0 [facility] Blood Gas Sample Site R Radial [facility] Blood Gas Specimen Type ART [facility] Blood Gas Vent Mode Not entered [facility] Oxygen Delivery Device Room Air [facility] Urine RBC 0-5 SEEN /hpf 0-5 [facility] Estimated Creatinine Clearance Calc 63.01 ml/min [facility] Estimated GFR (MDRD) Amer 85 mL/min >60 [facility] Comment on above: GFR Calc Estimated GFR (MDRD) Non-Af Amer 70 mL/min >60 [facility] Comment on above: Non- GFR Calc Protein Test strip Ql (U)Ord ered By: Antonio James on 12-02-2023 Protein Ql (U) 15 mg/dl Negative [facility] RBC Auto (Bld) [#/Vol]Ordere d By: Antonio James on 12-02-2023 RBC (Bld) [#/Vol] 4.13 10*6/uL 4.6-6.2 [facility] Serum or plasma calcium tay urement (mass/volume)Ordered By: Antonio James on 12-02-2023 Calcium [Mass/Vol] 9.6 mg/dL 8.5-10.1 [facility] Serum or plasma cardiac trop onin I panel by high sensitivity methodOrdered By: Antonio James on 12-02-2023 Tropinin I.cardiac panel High sensitivity method 912 pg/mL 3.0-78.0 [facility] Comment on above: Critical Result(s) C alled at: 14:16:35 12/02/2023 by: Lili Ricardo. Results read back by same. Please Note: New Test Units and Gender Specific Reference Ranges. For more information see Policy Stat Procedure [place] High Sensitivity Troponin (TNIH) and attachments. Serum or plasma creatinine m easurement (mass/volume)Ordered By: Antonio James on 12-02-2023 Creatinine [Mass/Vol] 1.06 mg/dL 0.70-1.30 [facility] Comment on above: The validity of the calculated GFR & GFRAA in patients over 70 years has not been determined. Clinical correlation is essential. Serum or plasma urea nitroge n measurement (mass/volume)Ordered By: Antonio James on 12-02-2023 Urea nitrogen [Mass/Vol] 15 mg/dL 7-18 [facility] Squamous epithelial cells de tection in urine sediment by light microscopyOrdered By: Antonio James on 12-02-2023 Epithelial cells.squamous LM Ql (Urine sed) 0 SEEN /hpf 0-5 [facility] Thin prep Papanicolaou smear with manual screeningOrdered By: Antonio James on 12-02-2023 Thin prep Papanicolaou smear with manual screening 5 5-15 [facility] Urine blood detectionOrdered By: Antonio James on 12-02-2023 RBC Ql (U) 50 /ul Negative [facility] Urine clarityOrdered By: Anastacia James on 12-02-2023 Clarity (U) Sl. Cloudy Clear [facility] Urine color determinationOrd ered By: Antonio James on 12-02-2023 Color (U) Yellow Yellow [facility] Urine glucose detectionOrder ed By: Antonio James on 12-02-2023 Glucose Ql (U) Normal mg/dl Normal [facility] Urine leukocyte esterase det ection by dipstickOrdered By: Antonio James on 12-02-2023 Leukocyte esterase Test strip Ql (U) 100 /ul Negative [facility] Urine pHOrdered By: Antonio blackburn on 12-02-2023 pH (U) 7.0 [pH] 5.0 - 8.0 [facility] Urine sediment bacteria coun t by microscopy (number/high power field)Ordered By: Antonio James on 12-02-2023 Bacteria LM.HPF (Urine sed) [#/Area] 1 /[HPF] None Seen [facility] Urine specific gravity measu rementOrdered By: Antonio James on 12-02-2023 Specific gravity (U) [Rel density] 1.010 1.002-1.030 [facility] Urine urobilinogen measureme ntOrdered By: Antonio James on 12-02-2023 Urobilinogen Ql (U) Normal mg/dl Normal [facility] Absolute lymphocyte countOrd ered By: Aleahzackerykajal Mario on 08-15-2023 Lymphocytes Auto (Unsp spec) [#/Vol] 1.89 10*3/uL 0.83-4.51 [facility] Basophil percentageOrdered B y: Addi Mario on 08-15-2023 Basophils/100 WBC (Bld) 0.4 % 0-1 [facility] Bilirubin [Mass/Vol] 0.40 mg/dL 0.20-1.00 [facility] Comment on above: For patients on eltr ombopag therapy, use of Dimension [place] TBIL is not recommended. Chloride [Moles/Vol] 104 mmol/L 98-107 [facility] Eosinophils/100 WBC (Bld) 1.5 % 0-5 [facility] Glucose [Mass/Vol] 107 mg/dL 74-106 [facility] Comment on above: Fasting Glucose resu lt from 100 to 125 mg/dL suggests IMPAIRED HOMEOSTASIS per A.D.A. criteria. Neutrophils (Bld) [#/Vol] 4.6 10*3/uL 2.0-7.7 [facility] Neutrophils/100 WBC (Bld) 62.0 % 47-70 [facility] Potassium [Moles/Vol] 4.4 mmol/L 3.5-5.1 [facility] Protein [Mass/Vol] 7.4 g/dL 6.4-8.2 [facility] Sodium [Moles/Vol] 141 mmol/L 136-145 [facility] WBC (Bld) [#/Vol] 7.4 10*3/uL 4.4-11.0 [facility] Blood erythrocytes count (nu mber/volume)Ordered By: Addi Mario on 08-15-2023 RBC (Bld) [#/Vol] 3.96 10*6/uL 4.6-6.2 [facility] Blood hemoglobin measurement (mass/volume)Ordered By: Addi Mario on 08-15-2023 Hemoglobin (Bld) [Mass/Vol] 12.1 g/dL 13.0-16.5 [facility] Blood lymphocytes/100 leukoc ytesOrdered By: Addi Mario on 08-15-2023 Lymphocytes/100 WBC (Bld) 25.5 % 19-41 [facility] Blood monocytes/100 leukocyt esOrdered By: [facility] on 08-15-2023 Monocytes/100 WBC (Bld) 10.3 % 0-10 [facility] Blood platelet mean volumeOr dered By: josh Mario on 08-15-2023 Platelet mean volume (Bld) [Entitic vol] 11.0 fL 6.2-12.0 [facility] Determination of erythrocyte mean corpuscular volume (MCV)Ordered By: zackeryhobbslilli Mario on 08-15-2023 MCV (RBC) [Entitic vol] 98.7 fL 80-94 [facility] Hematocrit Auto (Bld) [Volum e fraction]Ordered By: [facility] Gemaria del carmen on 08-15-2023 Hematocrit (Bld) [Volume fraction] 39.1 % 40-54 [facility] Laboratory - Chemistry and C hemistry - challengeOrdered By: josh Gemaria del carmen on 08-15-2023 ALP [Catalytic activity/Vol] 80 U/L 45-117 [facility] ALT [Catalytic activity/Vol] 24 U/L 16-61 [facility] CO2 [Moles/Vol] 33.0 mmol/L 21.0-32.0 [facility] Globulin (S) [Mass/Vol] 4.4 g/dL 2.2-4.2 [facility] Urea nitrogen/Creatinine [Mass ratio] 15.1 mg/mg 10-20 [facility] Laboratory - Hematology and Cell countsOrdered By: zackeryhobbslilli Gemaria del carmen on 08-15-2023 Erythrocyte distribution width (RBC) [Entitic vol] 57.6 fL 35.1-43.9 [facility] Erythrocyte distribution width (RBC) [Ratio] 15.8 % 11.6-14.6 [facility] Immature granulocytes/100 WBC (Bld) 0.300 % 0.0-0.9 [facility] Comment on above: IG% - Immature Granu locytes (promyelocytes, myelocytes and metamyelocytes) > 1% indicates that a LEFT SHIFT is Present. MCH (RBC) [Entitic mass] 30.6 pg 27.0-32.0 [facility] Nucleated RBC/100 WBC (Bld) [Ratio] 0 % 0-5 [facility] MCHC Auto (RBC) [Mass/Vol]Or dered By: Addi Mario on 08-15-2023 MCHC (RBC) [Mass/Vol] 30.9 g/dL 32-36 [facility] No Panel InformationOrdered By: Addi Mario on 08-15-2023 Estimated GFR (MDRD) Amer 108 mL/min >60 [facility] Comment on above: GFR Calc Estimated GFR (MDRD) Non-Af Amer 90 mL/min >60 [facility] Comment on above: Non- GFR Calc Platelets bldOrdered By: Sonny Mario on 08-15-2023 Platelets (Bld) [#/Vol] 158 10*3/uL 150-450 [facility] Serum or plasma albumin tay urement (mass/volume)Ordered By: Addi Mario on 08-15-2023 Albumin [Mass/Vol] 3.0 g/dL 3.2-5.0 [facility] Serum or plasma albumin/glob ulin mass ratioOrdered By: Addi Mario on 08-15-2023 Albumin/Globulin [Mass ratio] 0.7 {ratio} 0.9-2.4 [facility] Serum or plasma calcium tay urement (mass/volume)Ordered By: Addi Mario on 08-15-2023 Calcium [Mass/Vol] 9.0 mg/dL 8.5-10.1 [facility] Serum or plasma creatinine m easurement (mass/volume)Ordered By: Addi Mario on 08-15-2023 Creatinine [Mass/Vol] 0.86 mg/dL 0.70-1.30 [facility] Comment on above: The validity of the calculated GFR & GFRAA in patients over 70 years has not been determined. Clinical correlation is essential. Serum or plasma urea nitroge n measurement (mass/volume)Ordered By: Addi Mario on 08-15-2023 Urea nitrogen [Mass/Vol] 13 mg/dL 7-18 [facility] Thin prep Papanicolaou smear with manual screeningOrdered By: Addi Mario on 08-15-2023 Thin prep Papanicolaou smear with manual screening 27 U/L 15-37 [facility] Thin prep Papanicolaou smear with manual screening 4 5-15 [facility] Influenza virus A and B and SARS-CoV-2 (COVID-19) Ag panel - Upper respiratory specimOrdered By: Marisol Crum on 04-22-2023 SARS-CoV-2 & FLU Antigen (Rapid) SARS-CoV-2 (COVID 19) [facility] Absolute lymphocyte countOrd ered By: Addi Mario on 03-23-2023 Lymphocytes Auto (Unsp spec) [#/Vol] 1.86 10*3/uL 0.83-4.51 [facility] Basophil percentageOrdered B y: Addi Mario on 03-23-2023 Basophils/100 WBC (Bld) 0.6 % 0-1 [facility] Bilirubin [Mass/Vol] 0.40 mg/dL 0.20-1.00 [facility] Comment on above: For patients on eltr ombopag therapy, use of Dimension [place] TBIL is not recommended. Eosinophils/100 WBC (Bld) 2.5 % 0-5 [facility] Neutrophils (Bld) [#/Vol] 3.6 10*3/uL 2.0-7.7 [facility] Neutrophils/100 WBC (Bld) 56.1 % 47-70 [facility] Protein [Mass/Vol] 7.5 g/dL 6.4-8.2 [facility] WBC (Bld) [#/Vol] 6.4 10*3/uL 4.4-11.0 [facility] Blood erythrocytes count (nu mber/volume)Ordered By: Addi Mario on 03-23-2023 RBC (Bld) [#/Vol] 3.82 10*6/uL 4.6-6.2 [facility] Blood hemoglobin measurement (mass/volume)Ordered By: Addi Mario on 03-23-2023 Hemoglobin (Bld) [Mass/Vol] 11.7 g/dL 13.0-16.5 [facility] Blood lymphocytes/100 leukoc ytesOrdered By: Addi Mario on 03-23-2023 Lymphocytes/100 WBC (Bld) 29.1 % 19-41 [facility] Blood monocytes/100 leukocyt esOrdered By: Addi Mario on 03-23-2023 Monocytes/100 WBC (Bld) 11.4 % 0-10 [facility] Blood platelet mean volumeOr dered By: Addi Mario on 03-23-2023 Platelet mean volume (Bld) [Entitic vol] 11.5 fL 6.2-12.0 [facility] Determination of erythrocyte mean corpuscular volume (MCV)Ordered By: Addi Mario on 03-23-2023 MCV (RBC) [Entitic vol] 98.7 fL 80-94 [facility] Direct bilirubinOrdered By: Addi Mario on 03-23-2023 Bilirubin.direct [Mass/Vol] 0.13 mg/dL 0.00-0.30 [facility] Hematocrit Auto (Bld) [Volum e fraction]Ordered By: Addi Mario on 03-23-2023 Hematocrit (Bld) [Volume fraction] 37.7 % 40-54 [facility] INR in Blood by Coagulation assayOrdered By: Addi Mario on 03-23-2023 INR Coag (Bld) [Relative time] 1.1 {INR} [facility] Laboratory - Chemistry and C hemistry - challengeOrdered By: Addi Mario on 03-23-2023 ALP [Catalytic activity/Vol] 85 U/L 45-117 [facility] ALT [Catalytic activity/Vol] 21 U/L 16-61 [facility] Cobalamin (Vitamin B12) [Mass/Vol] 623 pg/mL 211-911 [facility] Globulin (S) [Mass/Vol] 4.4 g/dL 2.2-4.2 [facility] Laboratory - CoagulationOrde red By: Addi Mario on 03-23-2023 aPTT Coag (Bld) [Time] 33.5 s 24.1-36.2 [facility] PT Coag (PPP) [Time] 14.5 s 11.7-14.9 [facility] Laboratory - Hematology and Cell countsOrdered By: Addi Mario on 03-23-2023 Erythrocyte distribution width (RBC) [Entitic vol] 54.5 fL 35.1-43.9 [facility] Erythrocyte distribution width (RBC) [Ratio] 15.0 % 11.6-14.6 [facility] Immature granulocytes/100 WBC (Bld) 0.300 % 0.0-0.9 [facility] Comment on above: IG% - Immature Granu locytes (promyelocytes, myelocytes and metamyelocytes) > 1% indicates that a LEFT SHIFT is Present. MCH (RBC) [Entitic mass] 30.6 pg 27.0-32.0 [facility] Nucleated RBC/100 WBC (Bld) [Ratio] 0 % 0-5 [facility] MCHC Auto (RBC) [Mass/Vol]Or dered By: Addi Mario on 03-23-2023 MCHC (RBC) [Mass/Vol] 31.0 g/dL 32-36 [facility] Platelets bldOrdered By: Sonny Mario on 03-23-2023 Platelets (Bld) [#/Vol] 148 10*3/uL 150-450 [facility] Serum or plasma albumin tay urement (mass/volume)Ordered By: Addi Mario on 03-23-2023 Albumin [Mass/Vol] 3.1 g/dL 3.2-5.0 [facility] Thin prep Papanicolaou smear with manual screeningOrdered By: Addi Mario on 03-23-2023 Thin prep Papanicolaou smear with manual screening 31 U/L 15-37 [facility] Absolute lymphocyte countOrd ered By: Dr. Ferrera on 03-12-2023 Lymphocytes Auto (Unsp spec) [#/Vol] 2.23 10*3/uL 0.83-4.51 [facility] Basophil percentageOrdered B y: Dr. Ferrera on 03-12-2023 Basophils/100 WBC (Bld) 0.6 % 0-1 [facility] Chloride [Moles/Vol] 104 mmol/L 98-107 [facility] Eosinophils/100 WBC (Bld) 3.2 % 0-5 [facility] Glucose [Mass/Vol] 88 mg/dL 74-106 [facility] Neutrophils (Bld) [#/Vol] 3.6 10*3/uL 2.0-7.7 [facility] Neutrophils/100 WBC (Bld) 51.9 % 47-70 [facility] Potassium [Moles/Vol] 4.1 mmol/L 3.5-5.1 [facility] Sodium [Moles/Vol] 137 mmol/L 136-145 [facility] WBC (Bld) [#/Vol] 6.9 10*3/uL 4.4-11.0 [facility] Blood erythrocytes count (nu mber/volume)Ordered By: Dr. Ferrera on 03-12-2023 RBC (Bld) [#/Vol] 3.86 10*6/uL 4.6-6.2 [facility] Blood hemoglobin measurement (mass/volume)Ordered By: Dr. Ferrera on 03-12-2023 Hemoglobin (Bld) [Mass/Vol] 11.9 g/dL 13.0-16.5 [facility] Blood lymphocytes/100 leukoc ytesOrdered By: Dr. Ferrera on 03-12-2023 Lymphocytes/100 WBC (Bld) 32.4 % 19-41 [facility] Blood monocytes/100 leukocyt esOrdered By: Dr. Ferrera on 03-12-2023 Monocytes/100 WBC (Bld) 11.6 % 0-10 [facility] Blood platelet mean volumeOr dered By: Dr. Ferrera on 03-12-2023 Platelet mean volume (Bld) [Entitic vol] 11.0 fL 6.2-12.0 [facility] Determination of erythrocyte mean corpuscular volume (MCV)Ordered By: Dr. Ferrera on 03-12-2023 MCV (RBC) [Entitic vol] 97.4 fL 80-94 [facility] Hematocrit Auto (Bld) [Volum e fraction]Ordered By: Dr. Ferrera on 03-12-2023 Hematocrit (Bld) [Volume fraction] 37.6 % 40-54 [facility] Laboratory - Chemistry and C hemistry - challengeOrdered By: Dr. Ferrera on 03-12-2023 CO2 [Moles/Vol] 30.0 mmol/L 21.0-32.0 [facility] Urea nitrogen/Creatinine [Mass ratio] 21.5 mg/mg 10-20 [facility] Laboratory - Hematology and Cell countsOrdered By: Dr. Ferrera on 03-12-2023 Erythrocyte distribution width (RBC) [Entitic vol] 54.1 fL 35.1-43.9 [facility] Erythrocyte distribution width (RBC) [Ratio] 15.1 % 11.6-14.6 [facility] Immature granulocytes/100 WBC (Bld) 0.300 % 0.0-0.9 [facility] Comment on above: IG% - Immature Granu locytes (promyelocytes, myelocytes and metamyelocytes) > 1% indicates that a LEFT SHIFT is Present. MCH (RBC) [Entitic mass] 30.8 pg 27.0-32.0 [facility] Nucleated RBC/100 WBC (Bld) [Ratio] 0 % 0-5 [facility] MCHC Auto (RBC) [Mass/Vol]Or dered By: Dr. Ferrera on 03-12-2023 MCHC (RBC) [Mass/Vol] 31.6 g/dL 32-36 [facility] No Panel InformationOrdered By: Dr. Ferrera on 03-12-2023 Troponin I High Sensitivity 407 pg/mL 3.0-78.0 [facility] Comment on above: Critical Result(s) C alled at: 14:27:56 03/12/2023 by: Lili Tom to Asim. Results read back by same. Please Note: New Test Units and Gender Specific Reference Ranges. For more information see Policy Stat Procedure [place] High Sensitivity Troponin (TNIH) and attachments. Estimated Creatinine Clearance Calc 58.20 ml/min [facility] Estimated GFR (MDRD) Amer 138 mL/min >60 [facility] Comment on above: GFR Calc Estimated GFR (MDRD) Non-Af Amer 114 mL/min >60 [facility] Comment on above: Non- GFR Calc Platelets bldOrdered By: Dr. Ferrera on 03-12-2023 Platelets (Bld) [#/Vol] 141 10*3/uL 150-450 [facility] Serum or plasma calcium tay urement (mass/volume)Ordered By: Dr. Ferrera on 03-12-2023 Calcium [Mass/Vol] 9.6 mg/dL 8.5-10.1 [facility] Serum or plasma creatinine m easurement (mass/volume)Ordered By: Dr. Fererra on 03-12-2023 Creatinine [Mass/Vol] 0.70 mg/dL 0.70-1.30 [facility] Comment on above: The validity of the calculated GFR & GFRAA in patients over 70 years has not been determined. Clinical correlation is essential. Serum or plasma urea nitroge n measurement (mass/volume)Ordered By: Dr. Ferrera on 03-12-2023 Urea nitrogen [Mass/Vol] 15 mg/dL 7-18 [facility] Thin prep Papanicolaou smear with manual screeningOrdered By: Dr. Ferrera on 03-12-2023 Thin prep Papanicolaou smear with manual screening 3 5-15 [facility] Stool gastrointestinal hemog lobin detection by immunologic methodOrdered By: Dr. Mario on 09-08-2022 Lower GI hemoglobin IA Ql (Stl) [facility] Absolute lymphocyte countOrd ered By: Dr. Mario on 09-04-2022 Lymphocytes Auto (Unsp spec) [#/Vol] 1.91 10*3/uL 0.83-4.51 [facility] Basophil percentageOrdered B y: Dr. Mario on 09-04-2022 Basophils/100 WBC (Bld) 0.5 % 0-1 [facility] Eosinophils/100 WBC (Bld) 3.3 % 0-5 [facility] Neutrophils (Bld) [#/Vol] 3.1 10*3/uL 2.0-7.7 [facility] Neutrophils/100 WBC (Bld) 52.2 % 47-70 [facility] WBC (Bld) [#/Vol] 6.0 10*3/uL 4.4-11.0 [facility] Blood erythrocytes count (nu mber/volume)Ordered By: Dr. Mario on 09-04-2022 RBC (Bld) [#/Vol] 4.08 10*6/uL 4.6-6.2 [facility] Blood hemoglobin measurement (mass/volume)Ordered By: Dr. Mario on 09-04-2022 Hemoglobin (Bld) [Mass/Vol] 12.5 g/dL 13.0-16.5 [facility] Blood lymphocytes/100 leukoc ytesOrdered By: Dr. Mario on 09-04-2022 Lymphocytes/100 WBC (Bld) 31.9 % 19-41 [facility] Blood monocytes/100 leukocyt esOrdered By: Dr. Mario on 09-04-2022 Monocytes/100 WBC (Bld) 11.9 % 0-10 [facility] Blood platelet mean volumeOr dered By: Dr. Mario on 09-04-2022 Platelet mean volume (Bld) [Entitic vol] 11.1 fL 6.2-12.0 [facility] Determination of erythrocyte mean corpuscular volume (MCV)Ordered By: Dr. Mario on 09-04-2022 MCV (RBC) [Entitic vol] 99.8 fL 80-94 [facility] Hematocrit Auto (Bld) [Volum e fraction]Ordered By: Dr. Mario on 09-04-2022 Hematocrit (Bld) [Volume fraction] 40.7 % 40-54 [facility] Laboratory - Hematology and Cell countsOrdered By: Dr. Mario on 09-04-2022 Erythrocyte distribution width (RBC) [Entitic vol] 52.1 fL 35.1-43.9 [facility] Erythrocyte distribution width (RBC) [Ratio] 14.2 % 11.6-14.6 [facility] Immature granulocytes/100 WBC (Bld) 0.200 % 0.0-0.9 [facility] Comment on above: IG% - Immature Granu locytes (promyelocytes, myelocytes and metamyelocytes) > 1% indicates that a LEFT SHIFT is Present. MCH (RBC) [Entitic mass] 30.6 pg 27.0-32.0 [facility] Nucleated RBC/100 WBC (Bld) [Ratio] 0 % 0-5 [facility] MCHC Auto (RBC) [Mass/Vol]Or dered By: Dr. Mario on 09-04-2022 MCHC (RBC) [Mass/Vol] 30.7 g/dL 32-36 [facility] Platelets bldOrdered By: Dr. Mario on 09-04-2022 Platelets (Bld) [#/Vol] 146 10*3/uL 150-450 [facility] Serum or plasma folate measu rement (mass/volume)Ordered By: Dr. Mario on 09-04-2022 Folate [Mass/Vol] 77.60 ng/mL 3.1-55.4 [facility] Absolute lymphocyte countOrd ered By: Dr. Peña on 08-24-2022 Lymphocytes Auto (Unsp spec) [#/Vol] 1.66 10*3/uL 0.83-4.51 [facility] Basophil percentageOrdered B y: Dr. Peña on 08-24-2022 Basophils/100 WBC (Bld) 0.3 % 0-1 [facility] Chloride [Moles/Vol] 107 mmol/L 98-107 [facility] Eosinophils/100 WBC (Bld) 3.8 % 0-5 [facility] Glucose [Mass/Vol] 103 mg/dL 74-106 [facility] Comment on above: Fasting Glucose resu lt from 100 to 125 mg/dL suggests IMPAIRED HOMEOSTASIS per A.D.A. criteria. Neutrophils (Bld) [#/Vol] 3.3 10*3/uL 2.0-7.7 [facility] Neutrophils/100 WBC (Bld) 54.8 % 47-70 [facility] Potassium [Moles/Vol] 4.0 mmol/L 3.5-5.1 [facility] Sodium [Moles/Vol] 140 mmol/L 136-145 [facility] WBC (Bld) [#/Vol] 6.0 10*3/uL 4.4-11.0 [facility] Blood erythrocytes count (nu mber/volume)Ordered By: Dr. Peña on 08-24-2022 RBC (Bld) [#/Vol] 4.00 10*6/uL 4.6-6.2 [facility] Blood hemoglobin measurement (mass/volume)Ordered By: Dr. Peña on 08-24-2022 Hemoglobin (Bld) [Mass/Vol] 12.5 g/dL 13.0-16.5 [facility] Blood lymphocytes/100 leukoc ytesOrdered By: Dr. Peña on 08-24-2022 Lymphocytes/100 WBC (Bld) 27.5 % 19-41 [facility] Blood monocytes/100 leukocyt esOrdered By: Dr. Peña on 08-24-2022 Monocytes/100 WBC (Bld) 13.4 % 0-10 [facility] Blood platelet mean volumeOr dered By: Dr. Peña on 08-24-2022 Platelet mean volume (Bld) [Entitic vol] 10.4 fL 6.2-12.0 [facility] Determination of erythrocyte mean corpuscular volume (MCV)Ordered By: Dr. Peña on 08-24-2022 MCV (RBC) [Entitic vol] 97.8 fL 80-94 [facility] Hematocrit Auto (Bld) [Volum e fraction]Ordered By: Dr. Peña on 08-24-2022 Hematocrit (Bld) [Volume fraction] 39.1 % 40-54 [facility] INR in Blood by Coagulation assayOrdered By: Dr. Peña on 08-24-2022 INR Coag (Bld) [Relative time] 1.1 {INR} [facility] Laboratory - Chemistry and C hemistry - challengeOrdered By: Dr. Peña on 08-24-2022 CO2 [Moles/Vol] 31.0 mmol/L 21.0-32.0 [facility] Urea nitrogen/Creatinine [Mass ratio] 21.3 mg/mg 10-20 [facility] Laboratory - CoagulationOrde red By: Dr. Peña on 08-24-2022 aPTT Coag (Bld) [Time] 31.1 s 24.1-36.2 [facility] PT Coag (PPP) [Time] 14.0 s 11.7-14.9 [facility] Laboratory - Hematology and Cell countsOrdered By: Dr. Peña on 08-24-2022 Erythrocyte distribution width (RBC) [Entitic vol] 51.5 fL 35.1-43.9 [facility] Erythrocyte distribution width (RBC) [Ratio] 14.2 % 11.6-14.6 [facility] Immature granulocytes/100 WBC (Bld) 0.200 % 0.0-0.9 [facility] Comment on above: IG% - Immature Granu locytes (promyelocytes, myelocytes and metamyelocytes) > 1% indicates that a LEFT SHIFT is Present. MCH (RBC) [Entitic mass] 31.3 pg 27.0-32.0 [facility] Nucleated RBC/100 WBC (Bld) [Ratio] 0 % 0-5 [facility] MCHC Auto (RBC) [Mass/Vol]Or dered By: Dr. Peña on 08-24-2022 MCHC (RBC) [Mass/Vol] 32.0 g/dL 32-36 [facility] No Panel InformationOrdered By: Dr. Peña on 08-24-2022 Estimated Creatinine Clearance Calc 59.28 ml/min [facility] Estimated GFR (MDRD) Amer 137 mL/min >60 [facility] Comment on above: GFR Calc Estimated GFR (MDRD) Non-Af Amer 113 mL/min >60 [facility] Comment on above: Non- GFR Calc Platelets bldOrdered By: Dr. Peña on 08-24-2022 Platelets (Bld) [#/Vol] 115 10*3/uL 150-450 [facility] Serum or plasma calcium tay urement (mass/volume)Ordered By: Dr. Peña on 08-24-2022 Calcium [Mass/Vol] 9.2 mg/dL 8.5-10.1 [facility] Serum or plasma creatinine m easurement (mass/volume)Ordered By: Dr. Peña on 08-24-2022 Creatinine [Mass/Vol] 0.70 mg/dL 0.70-1.30 [facility] Comment on above: The validity of the calculated GFR & GFRAA in patients over 70 years has not been determined. Clinical correlation is essential. Serum or plasma urea nitroge n measurement (mass/volume)Ordered By: Dr. Peña on 08-24-2022 Urea nitrogen [Mass/Vol] 15 mg/dL 7-18 [facility] Thin prep Papanicolaou smear with manual screeningOrdered By: Dr. Peña on 08-24-2022 Thin prep Papanicolaou smear with manual screening 2 5-15 [facility] Absolute lymphocyte countOrd ered By: Dr. Mario on 08-04-2022 Lymphocytes Auto (Unsp spec) [#/Vol] 2.10 10*3/uL 0.83-4.51 [facility] Basophil percentageOrdered B y: Dr. Mario on 08-04-2022 Basophils/100 WBC (Bld) 0.6 % 0-1 [facility] Bilirubin [Mass/Vol] 0.40 mg/dL 0.20-1.00 [facility] Comment on above: For patients on eltr ombopag therapy, use of Dimension [place] TBIL is not recommended. Chloride [Moles/Vol] 104 mmol/L 98-107 [facility] Cholesterol [Mass/Vol] 116 mg/dL <200 [facility] Comment on above: <200 mg/dL Desirable 200-240 mg/dL Borderline >240 mg/dL High Risk Eosinophils/100 WBC (Bld) 3.6 % 0-5 [facility] Glucose [Mass/Vol] 89 mg/dL 74-106 [facility] Neutrophils (Bld) [#/Vol] 3.8 10*3/uL 2.0-7.7 [facility] Neutrophils/100 WBC (Bld) 54.5 % 47-70 [facility] Potassium [Moles/Vol] 4.5 mmol/L 3.5-5.1 [facility] Comment on above: Moderate Hemolysis, Result may be falsely increased. Protein [Mass/Vol] 7.4 g/dL 6.4-8.2 [facility] Sodium [Moles/Vol] 139 mmol/L 136-145 [facility] Triglyceride [Mass/Vol] 106 mg/dL <199 [facility] Comment on above: The drugs N-Acetylcy steine and Metamizole may falsely depress this assay.Serum Triglycerides Reference Interval Normal <150 mg/dL Borderline high 150 - 199 mg/dL High 200 - 499 mg/dL Very High > or = 500 mg/dL WBC (Bld) [#/Vol] 6.9 10*3/uL 4.4-11.0 [facility] Blood erythrocytes count (nu mber/volume)Ordered By: Dr. Mario on 08-04-2022 RBC (Bld) [#/Vol] 4.09 10*6/uL 4.6-6.2 [facility] Blood hemoglobin measurement (mass/volume)Ordered By: Dr. Mario on 08-04-2022 Hemoglobin (Bld) [Mass/Vol] 12.8 g/dL 13.0-16.5 [facility] Blood lymphocytes/100 leukoc ytesOrdered By: Dr. Mario on 08-04-2022 Lymphocytes/100 WBC (Bld) 30.3 % 19-41 [facility] Blood monocytes/100 leukocyt esOrdered By: Dr. Mario on 08-04-2022 Monocytes/100 WBC (Bld) 10.7 % 0-10 [facility] Blood platelet mean volumeOr dered By: Dr. Mario on 08-04-2022 Platelet mean volume (Bld) [Entitic vol] 11.4 fL 6.2-12.0 [facility] Determination of erythrocyte mean corpuscular volume (MCV)Ordered By: Dr. Mario on 08-04-2022 MCV (RBC) [Entitic vol] 100.0 fL 80-94 [facility] Hematocrit Auto (Bld) [Volum e fraction]Ordered By: Dr. Mario on 08-04-2022 Hematocrit (Bld) [Volume fraction] 40.9 % 40-54 [facility] Laboratory - Chemistry and C hemistry - challengeOrdered By: Dr. Mario on 08-04-2022 ALP [Catalytic activity/Vol] 73 U/L 45-117 [facility] ALT [Catalytic activity/Vol] 25 U/L 16-61 [facility] CO2 [Moles/Vol] 32.0 mmol/L 21.0-32.0 [facility] Globulin (S) [Mass/Vol] 4.3 g/dL 2.2-4.2 [facility] Urea nitrogen/Creatinine [Mass ratio] 18.2 mg/mg 10-20 [facility] Laboratory - Hematology and Cell countsOrdered By: Dr. Mario on 08-04-2022 Erythrocyte distribution width (RBC) [Entitic vol] 52.4 fL 35.1-43.9 [facility] Erythrocyte distribution width (RBC) [Ratio] 14.2 % 11.6-14.6 [facility] Immature granulocytes/100 WBC (Bld) 0.300 % 0.0-0.9 [facility] Comment on above: IG% - Immature Granu locytes (promyelocytes, myelocytes and metamyelocytes) > 1% indicates that a LEFT SHIFT is Present. MCH (RBC) [Entitic mass] 31.3 pg 27.0-32.0 [facility] Nucleated RBC/100 WBC (Bld) [Ratio] 0 % 0-5 [facility] MCHC Auto (RBC) [Mass/Vol]Or dered By: Dr. Mario on 08-04-2022 MCHC (RBC) [Mass/Vol] 31.3 g/dL 32-36 [facility] No Panel InformationOrdered By: Dr. Mario on 08-04-2022 Estimated GFR (MDRD) Amer 123 mL/min >60 [facility] Comment on above: GFR Calc Estimated GFR (MDRD) Non-Af Amer 102 mL/min >60 [facility] Comment on above: Non- GFR Calc Platelets bldOrdered By: Dr. Mario on 08-04-2022 Platelets (Bld) [#/Vol] 135 10*3/uL 150-450 [facility] Serum or plasma albumin tay urement (mass/volume)Ordered By: Dr. Mario on 08-04-2022 Albumin [Mass/Vol] 3.1 g/dL 3.2-5.0 [facility] Serum or plasma albumin/glob ulin mass ratioOrdered By: Dr. Mario on 08-04-2022 Albumin/Globulin [Mass ratio] 0.7 {ratio} 0.9-2.4 [facility] Serum or plasma calcium tay urement (mass/volume)Ordered By: Dr. Mario on 08-04-2022 Calcium [Mass/Vol] 8.9 mg/dL 8.5-10.1 [facility] Serum or plasma cholesterol in HDL measurement (mass/volume)Ordered By: Dr. Mario on 08-04-2022 Cholesterol in HDL [Mass/Vol] 50 mg/dL >40 [facility] Comment on above: The drugs N-Acetylcy steine and Metamizole may falsely depress this assay. Reference Range HDL <40 mg/dL Low HDL Cholesterol HDL >or= 60 mg/dL High HDL Cholesterol Serum or plasma cholesterol in VLDL measurement (mass/volume)Ordered By: Dr. Mario on 08-04-2022 Cholesterol in VLDL [Mass/Vol] 21 mg/dL 5-40 [facility] Serum or plasma creatinine m easurement (mass/volume)Ordered By: Dr. Mario on 08-04-2022 Creatinine [Mass/Vol] 0.77 mg/dL 0.70-1.30 [facility] Comment on above: The validity of the calculated GFR & GFRAA in patients over 70 years has not been determined. Clinical correlation is essential. Serum or plasma low density lipoprotein (LDL) cholesterol measurement (mass/volume)Ordered By: Dr. Mario on 08-04-2022 Cholesterol in LDL [Mass/Vol] 45 mg/dL 0-130 [facility] Serum or plasma urea nitroge n measurement (mass/volume)Ordered By: Dr. Mario on 08-04-2022 Urea nitrogen [Mass/Vol] 14 mg/dL 7-18 [facility] Thin prep Papanicolaou smear with manual screeningOrdered By: Dr. Mario on 08-04-2022 Thin prep Papanicolaou smear with manual screening 33 U/L 15-37 [facility] Comment on above: Moderate Hemolysis, Result may be falsely increased. Thin prep Papanicolaou smear with manual screening 3 5-15 [facility] Absolute lymphocyte counton 12-03-2021 Lymphocytes Auto (Unsp spec) [#/Vol] 2.18 10*3/uL 0.83-4.51 [facility] Work Phone: Basophil percentageon 2021 Basophils/100 WBC (Bld) 0.4 % 0-1 [facility] Work Phone: Chloride [Moles/Vol] 104 mmol/L 98-107 [facility] Work Phone: Eosinophils/100 WBC (Bld) 0.9 % 0-5 [facility] Work Phone: Glucose [Mass/Vol] 100 mg/dL 74-106 [facility] Work Phone: Comment on above: Fasting Glucose resu lt from 100 to 125 mg/dL suggests IMPAIRED HOMEOSTASIS per A.D.A. criteria. Neutrophils (Bld) [#/Vol] 5.7 10*3/uL 2.0-7.7 [facility] Work Phone: Neutrophils/100 WBC (Bld) 63.0 % 47-70 [facility] Work Phone: [phone] Potassium [Moles/Vol] 4.6 mmol/L 3.5-5.1 [facility] Work Phone: [phone] Sodium [Moles/Vol] 139 mmol/L 136-145 [facility] Work Phone: [phone] WBC (Bld) [#/Vol] 9.0 10*3/uL 4.4-11.0 [facility] Work Phone: Blood erythrocytes count (nu mber/volume)on 12-03-2021 RBC (Bld) [#/Vol] 4.62 10*6/uL 4.6-6.2 [facility]: Blood hemoglobin measurement (mass/volume)on 12-03-2021 Hemoglobin (Bld) [Mass/Vol] 14.7 g/dL 13.0-16.5 [facility] Work Phone: Blood lymphocytes/100 leukoc yteson 12-03-2021 Lymphocytes/100 WBC (Bld) 24.2 % 19-41 [facility] Work Phone: Blood monocytes/100 leukocyt eson 12-03-2021 Monocytes/100 WBC (Bld) 11.1 % 0-10 [facility] Work Phone: Blood platelet mean volumeon 12-03-2021 Platelet mean volume (Bld) [Entitic vol] 11.0 fL 6.2-12.0 [facility] Work Phone: Determination of erythrocyte mean corpuscular volume (MCV)on 12-03-2021 MCV (RBC) [Entitic vol] 96.3 fL 80-94 [facility] Work Phone: Hematocrit Auto (Bld) [Volum e fraction]on 12-03-2021 Hematocrit (Bld) [Volume fraction] 44.5 % 40-54 [facility] Work Phone: Laboratory - Chemistry and C hemistry - challengeon 12-03-2021 CO2 [Moles/Vol] 33.0 mmol/L 21.0-32.0 [facility] Work Phone: Magnesium [Mass/Vol] 2.4 mg/dL 1.6-2.6 [facility] Work Phone: Urea nitrogen/Creatinine [Mass ratio] 21.2 mg/mg 10-20 [facility] Work Phone: Laboratory - Hematology and Cell countson 12-03-2021 Erythrocyte distribution width (RBC) [Entitic vol] 49.6 fL 35.1-43.9 [facility] Work Phone: Erythrocyte distribution width (RBC) [Ratio] 14.1 % 11.6-14.6 [facility] Work Phone: Immature granulocytes/100 WBC (Bld) 0.400 % 0.0-0.9 [facility] Work Phone: Comment on above: IG% - Immature Granu locytes (promyelocytes, myelocytes and metamyelocytes) > 1% indicates that a LEFT SHIFT is Present. MCH (RBC) [Entitic mass] 31.8 pg 27.0-32.0 [facility] Work Phone: Nucleated RBC/100 WBC (Bld) [Ratio] 0 % 0-5 [facility] Work Phone: MCHC Auto (RBC) [Mass/Vol]on 12-03-2021 MCHC (RBC) [Mass/Vol] 33.0 g/dL 32-36 [facility] Work Phone: No Panel Informationon 12-03 Estimated GFR (MDRD) Amer 92 mL/min >60 [facility] Work Phone: Comment on above: GFR Calc Estimated GFR (MDRD) Non-Af Amer 76 mL/min >60 [facility] Work Phone: Comment on above: Non- GFR Calc Thyroid Stimulating Hormone (TSH) 2.10 uIU/mL 0.358-3.74 [facility] Work Phone: Platelets bldon 12-03-2021 Platelets (Bld) [#/Vol] 168 10*3/uL 150-450 [facility] Work Phone: Serum or plasma calcium tay urement (mass/volume)on 12-03-2021 Calcium [Mass/Vol] 9.4 mg/dL 8.5-10.1 [facility] Work Phone: Serum or plasma creatinine m easurement (mass/volume)on 12-03-2021 Creatinine [Mass/Vol] 0.99 mg/dL 0.70-1.30 [facility] Work Phone: Comment on above: The validity of the calculated GFR & GFRAA in patients over 70 years has not been determined. Clinical correlation is essential. Serum or plasma urea nitroge n measurement (mass/volume)on 12-03-2021 Urea nitrogen [Mass/Vol] 21 mg/dL 7-18 [facility] Work Phone: Thin prep Papanicolaou smear with manual screeningon 12-03-2021 Thin prep Papanicolaou smear with manual screening 2 5-15 [facility] Work Phone: No Panel Information [facility] Stool gastrointestinal hemog lobin detection by immunologic method Lower GI hemoglobin IA Ql (Stl) [facility] Work Phone: Vital Signs Date Time Vital Sign Value Performing Clinician Faci lity 03-17-2025 07:04-0400 Body temperature 98.2 [degF] Dr. Addi Mario MD Work Phone: [facility] 03-17-2025 07:04-0400 Diastolic blood pressure 69 mm[Hg] Dr. Addi Mario MD Work Phone: [facility] 03-17-2025 07:04-0400 Heart rate 56 /min Dr. Addi Mario MD Work Phone: [facility] 03-17-2025 07:04-0400 Respiratory rate 16 /min Dr. Addi Mario MD Work Phone: [facility] 03-17-2025 07:04-0400 SaO2% (BldA) [Mass fraction] 99 % Dr. Addi Mario MD Work Phone: [facility] 03-17-2025 07:04-0400 Systolic blood pressure 140 mm[Hg] Dr. Addi Mario MD Work Phone: [facility] 03-17-2025 05:41-0400 Body height 182.[address] Addi Mario MD Work Phone: [facility] 03-17-2025 05:41-0400 Body mass index (BMI) [Ratio] 30.6 kg/m2 Dr. Addi Mario MD Work Phone: [facility] 03-17-2025 05:41-0400 Body weight 102.[address] Addi Mario MD Work Phone: [facility] 03-10-2025 17:13-0400 Body temperature 97.9 [degF] Dr. Addi Mario MD Work Phone: [facility] 03-10-2025 17:13-0400 Diastolic blood pressure 76 mm[Hg] Dr. Addi Mario MD Work Phone: [facility] 03-10-2025 17:13-0400 Heart rate 63 /min Dr. Addi Mario MD Work Phone: [facility] 03-10-2025 17:13-0400 Respiratory rate 16 /min Dr. Addi Mario MD Work Phone: [facility] 03-10-2025 17:13-0400 SaO2% (BldA) [Mass fraction] 97 % Dr. Addi Mario MD Work Phone: [facility] 03-10-2025 17:13-0400 Systolic blood pressure 128 mm[Hg] Dr. Addi Mario MD Work Phone: [facility] 03-10-2025 16:23-0400 Body mass index (BMI) [Ratio] 30.9 kg/m2 Dr. Addi Mario MD Work Phone: [facility] 03-10-2025 16:23-0400 Body weight 103.[address] Addi Mario MD Work Phone: [facility] 03-10-2025 16:06-0400 Body height 182.[address] Addi Mario MD Work Phone: [facility] 02-19-2025 06:29-0400 Body height 182.[address] Addi Mario MD Work Phone: [facility] 02-19-2025 06:29-0400 Body mass index (BMI) [Ratio] 30.1 kg/m2 Dr. Addi Mario MD Work Phone: [facility] 02-19-2025 06:29-0400 Body weight 100.[address] Addi Mario MD Work Phone: [facility] 02-19-2025 06:29-0400 Diastolic blood pressure 80 mm[Hg] Dr. Addi Mario MD Work Phone: [facility] 02-19-2025 06:29-0400 Heart rate 78 /min Dr. Addi Mario MD Work Phone: [facility] 02-19-2025 06:29-0400 Respiratory rate 18 /min Dr. Addi Mario MD Work Phone: [facility] 02-19-2025 06:29-0400 SaO2% (BldA) [Mass fraction] 98 % Dr. Addi Mario MD Work Phone: [facility] 02-19-2025 06:29-0400 Systolic blood pressure 156 mm[Hg] Dr. Addi Mario MD Work Phone: [facility] 02-14-2025 14:27-0400 Body height 182.[address] Addi Mario MD Work Phone: [facility] 02-14-2025 14:27-0400 Body mass index (BMI) [Ratio] 30.1 kg/m2 Dr. Addi Mario MD Work Phone: [facility] 02-14-2025 14:27-0400 Body temperature 98 [degF] Dr. Addi Mario MD Work Phone: [facility] 02-14-2025 14:27-0400 Body weight 100.[address] Addi Mario MD Work Phone: [facility] 02-14-2025 14:27-0400 Diastolic blood pressure 78 mm[Hg] Dr. Addi Mario MD Work Phone: [facility] 02-14-2025 14:27-0400 Heart rate 60 /min Dr. Addi Mario MD Work Phone: [facility] 02-14-2025 14:27-0400 Respiratory rate 16 /min Dr. Addi Mario MD Work Phone: [facility] 02-14-2025 14:27-0400 SaO2% (BldA) [Mass fraction] 96 % Dr. Addi Mario MD Work Phone: [facility] 02-14-2025 14:27-0400 Systolic blood pressure 124 mm[Hg] Dr. Addi Mario MD Work Phone: [facility] 12-14-2024 08:21-0400 Body mass index (BMI) [Ratio] 29.7 kg/m2 Dr. Addi Mario MD Work Phone: [facility] 12-14-2024 08:21-0400 Body temperature 96.7 [degF] Dr. Addi Mario MD Work Phone: [facility] 12-14-2024 08:21-0400 Body weight 99.[address] Addi Mario MD Work Phone: [facility] 12-14-2024 08:21-0400 Diastolic blood pressure 74 mm[Hg] Dr. Addi Mario MD Work Phone: [facility] 12-14-2024 08:21-0400 Heart rate 59 /min Dr. Addi Mario MD Work Phone: [facility] 12-14-2024 08:21-0400 Respiratory rate 20 /min Dr. Addi Mario MD Work Phone: [facility] 12-14-2024 08:21-0400 SaO2% (BldA) [Mass fraction] 98 % Dr. Addi Mario MD Work Phone: [facility] 12-14-2024 08:21-0400 Systolic blood pressure 147 mm[Hg] Dr. Addi Mario MD Work Phone: [facility] 11-15-2024 15:09-0500 Body height 182.[address] Addi Mario MD Work Phone: [facility] 11-15-2024 15:09-0500 Body mass index (BMI) [Ratio] 29.7 kg/m2 Dr. Addi Mario MD Work Phone: [facility] 11-15-2024 15:09-0500 Body temperature 96.8 [degF] Dr. Addi Mario MD Work Phone: [facility] 11-15-2024 15:09-0500 Body weight 99.[address] Addi Mario MD Work Phone: [facility] 11-15-2024 15:09-0500 Diastolic blood pressure 60 mm[Hg] Dr. Addi Mario MD Work Phone: [facility] 11-15-2024 15:09-0500 Heart rate 60 /min Dr. Addi Mario MD Work Phone: [facility] 11-15-2024 15:09-0500 Respiratory rate 18 /min Dr. Addi Mario MD Work Phone: [facility] 11-15-2024 15:09-0500 SaO2% (BldA) [Mass fraction] 99 % Dr. Addi Mario MD Work Phone: [facility] 11-15-2024 15:09-0500 Systolic blood pressure 130 mm[Hg] Dr. Addi Mario MD Work Phone: [facility] 10-23-2024 13:58-0500 Body mass index (BMI) [Ratio] 29.5 kg/m2 Dr. Addi Mario MD Work Phone: [facility] 10-23-2024 13:58-0500 Body weight 98.[address] Addi Mario MD Work Phone: [facility] 10-23-2024 13:58-0500 Diastolic blood pressure 77 mm[Hg] Dr. Addi Mario MD Work Phone: [facility] 10-23-2024 13:58-0500 Heart rate 67 /min Dr. Addi Mario MD Work Phone: [facility] 10-23-2024 13:58-0500 Respiratory rate 18 /min Dr. Addi Mario MD Work Phone: [facility] 10-23-2024 13:58-0500 SaO2% (BldA) [Mass fraction] 99 % Dr. Addi Mario MD Work Phone: [facility] 10-23-2024 13:58-0500 Systolic blood pressure 140 mm[Hg] Dr. Addi Mario MD Work Phone: [facility] 08-15-2024 14:31-0500 Body mass index (BMI) [Ratio] 29.7 kg/m2 Dr. Addi Mario MD Work Phone: [facility] 08-15-2024 14:31-0500 Body temperature 97.3 [degF] Dr. Addi Mario MD Work Phone: [facility] 08-15-2024 14:31-0500 Body weight 99.[address] Addi Mario MD Work Phone: [facility] 08-15-2024 14:31-0500 Diastolic blood pressure 78 mm[Hg] Dr. Addi Mario MD Work Phone: [facility] 08-15-2024 14:31-0500 Heart rate 66 /min Dr. Addi Mario MD Work Phone: [facility] 08-15-2024 14:31-0500 Respiratory rate 14 /min Dr. Addi Mario MD Work Phone: [facility] 08-15-2024 14:31-0500 SaO2% (BldA) [Mass fraction] 98 % Dr. Addi Mario MD Work Phone: [facility] 08-15-2024 14:31-0500 Systolic blood pressure 120 mm[Hg] Dr. Addi Mario MD Work Phone: [facility] 08-09-2024 13:23-0500 Body mass index (BMI) [Ratio] 29.4 kg/m2 Dr. Addi Mario MD Work Phone: [facility] 08-09-2024 13:23-0500 Body temperature 97.6 [degF] Dr. Addi Mario MD Work Phone: [facility] 08-09-2024 13:23-0500 Body weight 98.[address] Addi Mario MD Work Phone: [facility] 08-09-2024 13:23-0500 Diastolic blood pressure 64 mm[Hg] Dr. Addi Mario MD Work Phone: [facility] 08-09-2024 13:23-0500 Heart rate 52 /min Dr. Addi Mario MD Work Phone: [facility] 08-09-2024 13:23-0500 Respiratory rate 18 /min Dr. Addi Mario MD Work Phone: [facility] 08-09-2024 13:23-0500 SaO2% (BldA) [Mass fraction] 92 % Dr. Addi Mario MD Work Phone: [facility] 08-09-2024 13:23-0500 Systolic blood pressure 134 mm[Hg] Dr. Addi Mario MD Work Phone: [facility] 01-01-2024 09:53-0400 Body temperature 97.6 [degF] Dr. Addi Mario Work Phone: [facility] 01-01-2024 09:53-0400 Diastolic blood pressure 52 mm[Hg] Dr. Addi Mario Work Phone: [facility] 01-01-2024 09:53-0400 Heart rate 60 /min Dr. Addi Mario Work Phone: [facility] 01-01-2024 09:53-0400 Respiratory rate 17 /min Dr. Addi Mario Work Phone: [facility] 01-01-2024 09:53-0400 SaO2% (BldA) [Mass fraction] 98 % Dr. Addi Mario Work Phone: [facility] 01-01-2024 09:53-0400 Systolic blood pressure 103 mm[Hg] Dr. Addi Mario Work Phone: [facility] 12-28-2023 15:54-0400 Body height 182.[address] Addi Mario Work Phone: [facility] 12-28-2023 15:54-0400 Body weight 99.[address] Addi Mario Work Phone: [facility] 12-27-2023 13:00-0400 Body mass index (BMI) [Ratio] 29.7 kg/m2 Dr. Addi Mario Work Phone: [facility] 12-27-2023 10:02-0400 Diastolic blood pressure 68 mm[Hg] Dr. Addi Mario Work Phone: [facility] 12-27-2023 10:02-0400 Heart rate 66 /min Dr. Addi Mario Work Phone: [facility] 12-27-2023 10:02-0400 Systolic blood pressure 127 mm[Hg] Dr. Addi Mario Work Phone: [facility] 12-27-2023 08:54-0400 Body height 182.[address] dAdi Mario Work Phone: [facility] 12-27-2023 08:54-0400 Body mass index (BMI) [Ratio] 29.8 kg/m2 Dr. Addi Mario Work Phone: [facility] 12-27-2023 08:54-0400 Body weight 99.[address] Addi Mario Work Phone: [facility] 12-27-2023 08:54-0400 Diastolic blood pressure 75 mm[Hg] Dr. Addi Mario Work Phone: [facility] 12-27-2023 08:54-0400 Heart rate 65 /min Dr. Addi Mario Work Phone: [facility] 12-27-2023 08:54-0400 Respiratory rate 18 /min Dr. Addi Mario Work Phone: [facility] 12-27-2023 08:54-0400 Systolic blood pressure 129 mm[Hg] Dr. Addi Mario Work Phone: [facility] 12-26-2023 14:11-0400 Body temperature 97.1 [degF] Dr. Addi Mario Work Phone: [facility] 12-26-2023 14:11-0400 Respiratory rate 14 /min Dr. Addi Mario Work Phone: [facility] 12-26-2023 14:11-0400 SaO2% (BldA) [Mass fraction] 98 % Dr. Addi Mario Work Phone: [facility] 12-21-2023 16:10-0400 Body temperature 97 [degF] Dr. Addi Mario Work Phone: [facility] 12-21-2023 16:10-0400 Diastolic blood pressure 60 mm[Hg] Dr. Addi Mario Work Phone: [facility] 12-21-2023 16:10-0400 Heart rate 62 /min Dr. Addi Maroi Work Phone: [facility] 12-21-2023 16:10-0400 Respiratory rate 16 /min Dr. Addi Mario Work Phone: [facility] 12-21-2023 16:10-0400 SaO2% (BldA) [Mass fraction] 97 % Dr. Addi Mario Work Phone: [facility] 12-21-2023 16:10-0400 Systolic blood pressure 148 mm[Hg] Dr. Addi Mario Work Phone: [facility] 12-21-2023 15:39-0400 Body weight 101.[address] Addi Mario Work Phone: [facility] 12-21-2023 14:26-0400 Body mass index (BMI) [Ratio] 31.7 kg/m2 Dr. Addi Mario Work Phone: [facility] 12-21-2023 14:26-0400 Body weight 106.[address] Addi Mario Work Phone: [facility] 12-20-2023 12:45-0400 Body mass index (BMI) [Ratio] 30.3 kg/m2 Dr. Addi Mario Work Phone: [facility] 12-08-2023 09:30-0400 Body temperature 97.7 [degF] Dr. Addi Mario Work Phone: [facility] 12-08-2023 09:30-0400 Diastolic blood pressure 80 mm[Hg] Dr. Addi Mario Work Phone: [facility] 12-08-2023 09:30-0400 Heart rate 68 /min Dr. Addi Mario Work Phone: [facility] 12-08-2023 09:30-0400 Respiratory rate 16 /min Dr. Addi Mario Work Phone: [facility] 12-08-2023 09:30-0400 SaO2% (BldA) [Mass fraction] 96 % Dr. Addi Mario Work Phone: [facility] 12-08-2023 09:30-0400 Systolic blood pressure 119 mm[Hg] Dr. Addi Mario Work Phone: [facility] 12-08-2023 02:28-0400 Body mass index (BMI) [Ratio] 31 kg/m2 Dr. Addi Mario Work Phone: [facility] 12-08-2023 02:28-0400 Body weight 103.[address] Addi Mario Work Phone: [facility] 12-07-2023 08:20-0400 Body height 182.[address] Addi Mario Work Phone: [facility] 12-05-2023 20:07-0400 Inhaled oxygen flow rate 3 L/min Dr. Addi Mario Work Phone: [facility] 12-02-2023 16:45-0400 Body temperature 99.1 [degF] Dr. Addi Mario Work Phone: [facility] 12-02-2023 16:45-0400 Diastolic blood pressure 65 mm[Hg] Dr. Addi Mario Work Phone: [facility] 12-02-2023 16:45-0400 Heart rate 90 /min Dr. Addi Mario Work Phone: [facility] 12-02-2023 16:45-0400 Respiratory rate 26 /min Dr. Addi Mario Work Phone: [facility] 12-02-2023 16:45-0400 SaO2% (BldA) [Mass fraction] 94 % Dr. Addi Mario Work Phone: [facility] 12-02-2023 16:45-0400 Systolic blood pressure 129 mm[Hg] Dr. Addi Mario Work Phone: [facility] 12-02-2023 12:31-0400 Body height 182.[address] Addi Mario Work Phone: [facility] 12-02-2023 12:31-0400 Body mass index (BMI) [Ratio] 31.7 kg/m2 Dr. Addi Mario Work Phone: [facility] 12-02-2023 12:31-0400 Body weight 106.[address] Addi Mario Work Phone: [facility] 10-20-2023 09:47-0500 Body mass index (BMI) [Ratio] 31.3 kg/m2 Dr. Addi Mario Work Phone: [facility] 10-20-2023 09:47-0500 Body weight 104.[address] Addi Mario Work Phone: [facility] 10-20-2023 09:47-0500 Diastolic blood pressure 72 mm[Hg] Dr. Addi Mario Work Phone: [facility] 10-20-2023 09:47-0500 Heart rate 66 /min Dr. Addi Mario Work Phone: [facility] 10-20-2023 09:47-0500 Respiratory rate 18 /min Dr. Addi Mario Work Phone: [facility] 10-20-2023 09:47-0500 Systolic blood pressure 131 mm[Hg] Dr. Addi Mario Work Phone: [facility] 08-15-2023 14:47-0500 Body mass index (BMI) [Ratio] 31.4 kg/m2 Dr. Addi Mario Work Phone: [facility] 08-15-2023 14:47-0500 Body temperature 97.5 [degF] Dr. Addi Mario Work Phone: [facility] 08-15-2023 14:47-0500 Body weight [address] Addi Mario Work Phone: [facility] 08-15-2023 14:47-0500 Diastolic blood pressure 76 mm[Hg] Dr. Addi Mario Work Phone: [facility] 08-15-2023 14:47-0500 Heart rate 61 /min Dr. Addi Mario Work Phone: [facility] 08-15-2023 14:47-0500 Respiratory rate 18 /min Dr. Addi Mario Work Phone: [facility] 08-15-2023 14:47-0500 SaO2% (BldA) [Mass fraction] 99 % Dr. Addi Mario Work Phone: [facility] 08-15-2023 14:47-0500 Systolic blood pressure 128 mm[Hg] Dr. Addi Mario Work Phone: [facility] 04-28-2023 14:10-0400 Body height 182.[address] Addi Mario Work Phone: [facility] 04-28-2023 14:10-0400 Body mass index (BMI) [Ratio] 31.6 kg/m2 Dr. Addi Mario Work Phone: [facility] 04-28-2023 14:10-0400 Body temperature 97.4 [degF] Dr. Addi Mario Work Phone: [facility] 04-28-2023 14:10-0400 Body weight 105.[address] Addi Mario Work Phone: [facility] 04-28-2023 14:10-0400 Diastolic blood pressure 78 mm[Hg] Dr. Addi Mario Work Phone: [facility] 04-28-2023 14:10-0400 Heart rate 68 /min Dr. Addi Mario Work Phone: [facility] 04-28-2023 14:10-0400 Respiratory rate 18 /min Dr. Addi Mario Work Phone: [facility] 04-28-2023 14:10-0400 SaO2% (BldA) [Mass fraction] 94 % Dr. Addi Mario Work Phone: [facility] 04-28-2023 14:10-0400 Systolic blood pressure 132 mm[Hg] Dr. Addi Mario Work Phone: [facility] 04-22-2023 22:20-0400 Diastolic blood pressure 76 mm[Hg] Dr. Addi Mario Work Phone: [facility] 04-22-2023 22:20-0400 Heart rate 83 /min Dr. Addi Mario Work Phone: [facility] 04-22-2023 22:20-0400 Respiratory rate 14 /min Dr. Addi Mario Work Phone: [facility] 04-22-2023 22:20-0400 SaO2% (BldA) [Mass fraction] 97 % Dr. Addi Mario Work Phone: [facility] 04-22-2023 22:20-0400 Systolic blood pressure 145 mm[Hg] Dr. Addi Mario Work Phone: [facility] 04-22-2023 20:18-0400 Body height 182.[address] Addi Mario Work Phone: [facility] 04-22-2023 20:18-0400 Body mass index (BMI) [Ratio] 31.5 kg/m2 Dr. Addi Mario Work Phone: [facility] 04-22-2023 20:18-0400 Body temperature 98.6 [degF] Dr. Addi Mario Work Phone: [facility] 04-22-2023 20:18-0400 Body weight 105.[address] Addi Mario Work Phone: [facility] 04-12-2023 14:02-0400 Body mass index (BMI) [Ratio] 31.7 kg/m2 Dr. Addi Mario Work Phone: [facility] 04-12-2023 14:02-0400 Body weight 106.[address] Addi Mario Work Phone: [facility] 04-12-2023 14:02-0400 Diastolic blood pressure 75 mm[Hg] Dr. Addi Mario Work Phone: [facility] 04-12-2023 14:02-0400 Heart rate 64 /min Dr. Addi Mario Work Phone: [facility] 04-12-2023 14:02-0400 Respiratory rate 20 /min Dr. Addi Mario Work Phone: [facility] 04-12-2023 14:02-0400 SaO2% (BldA) [Mass fraction] 99 % Dr. Addi Mario Work Phone: [facility] 04-12-2023 14:02-0400 Systolic blood pressure 140 mm[Hg] Dr. Addi Mario Work Phone: [facility] 03-25-2023 13:24-0400 Respiratory rate 18 /min Dr. Addi Mario Work Phone: [facility] 03-25-2023 11:28-0400 Body mass index (BMI) [Ratio] 31.4 kg/m2 Dr. Addi Mario Work Phone: [facility] 03-25-2023 11:28-0400 Body temperature 98.2 [degF] Dr. Addi Mario Work Phone: [facility] 03-25-2023 11:28-0400 Body weight 105.[address] Addi Mario Work Phone: [facility] 03-25-2023 11:28-0400 Diastolic blood pressure 67 mm[Hg] Dr. Addi Mario Work Phone: [facility] 03-25-2023 11:28-0400 Heart rate 62 /min Dr. Addi Mario Work Phone: [facility] 03-25-2023 11:28-0400 SaO2% (BldA) [Mass fraction] 98 % Dr. Addi Mario Work Phone: [facility] 03-25-2023 11:28-0400 Systolic blood pressure 172 mm[Hg] Dr. Addi Mario Work Phone: [facility] 03-24-2023 16:41-0400 Body mass index (BMI) [Ratio] 31.7 kg/m2 Dr. Addi Mario Work Phone: [facility] 03-24-2023 16:41-0400 Body temperature 97.9 [degF] Dr. Addi Mario Work Phone: [facility] 03-24-2023 16:41-0400 Body weight 106.[address] Addi Mario Work Phone: [facility] 03-24-2023 16:41-0400 Diastolic blood pressure 84 mm[Hg] Dr. Addi Mario Work Phone: [facility] 03-24-2023 16:41-0400 Heart rate 62 /min Dr. Addi Mario Work Phone: [facility] 03-24-2023 16:41-0400 Respiratory rate 16 /min Dr. Addi Mario Work Phone: [facility] 03-24-2023 16:41-0400 SaO2% (BldA) [Mass fraction] 98 % Dr. Addi Mario Work Phone: [facility] 03-24-2023 16:41-0400 Systolic blood pressure 120 mm[Hg] Dr. Addi Mario Work Phone: [facility] 03-21-2023 23:06-0400 Respiratory rate 16 /min Dr. Addi Mario Work Phone: [facility] 03-21-2023 19:55-0400 Body height 182.[address] Addi Mario Work Phone: [facility] 03-21-2023 19:55-0400 Body mass index (BMI) [Ratio] 31.6 kg/m2 Dr. Addi Mario Work Phone: [facility] 03-21-2023 19:55-0400 Body temperature 98 [degF] Dr. Addi Mario Work Phone: [facility] 03-21-2023 19:55-0400 Body weight 105.[address] Addi Mario Work Phone: [facility] 03-21-2023 19:55-0400 Diastolic blood pressure 65 mm[Hg] Dr. Addi Mario Work Phone: [facility] 03-21-2023 19:55-0400 Heart rate 54 /min Dr. Addi Mario Work Phone: [facility] 03-21-2023 19:55-0400 SaO2% (BldA) [Mass fraction] 97 % Dr. Addi Mario Work Phone: [facility] 03-21-2023 19:55-0400 Systolic blood pressure 167 mm[Hg] Dr. Addi Mario Work Phone: [facility] 03-12-2023 14:56-0400 Diastolic blood pressure 82 mm[Hg] Dr. Addi Mario Work Phone: [facility] 03-12-2023 14:56-0400 Heart rate 50 /min Dr. Addi Mario Work Phone: [facility] 03-12-2023 14:56-0400 Respiratory rate 14 /min Dr. Addi Mario Work Phone: [facility] 03-12-2023 14:56-0400 SaO2% (BldA) [Mass fraction] 99 % Dr. Addi Mario Work Phone: [facility] 03-12-2023 14:56-0400 Systolic blood pressure 131 mm[Hg] Dr. Addi Mario Work Phone: [facility] 03-12-2023 12:20-0400 Body height 182.[address] Addi Mario Work Phone: [facility] 03-12-2023 12:20-0400 Body mass index (BMI) [Ratio] 31.9 kg/m2 Dr. Addi Mario Work Phone: [facility] 03-12-2023 12:20-0400 Body temperature 96.8 [degF] Dr. Addi Mario Work Phone: [facility] 03-12-2023 12:20-0400 Body weight 106.[address] Addi Mario Work Phone: [facility] 01-22-2023 10:04-0400 Body height 182.[address] Addi Mario Work Phone: [facility] 01-22-2023 10:04-0400 Body mass index (BMI) [Ratio] 31.6 kg/m2 Dr. Addi Mario Work Phone: [facility] 01-22-2023 10:04-0400 Body temperature 97.6 [degF] Dr. Addi Mario Work Phone: [facility] 01-22-2023 10:04-0400 Body weight 105.[address] Addi Mario Work Phone: [facility] 01-22-2023 10:04-0400 Diastolic blood pressure 66 mm[Hg] Dr. Addi Mario Work Phone: [facility] 01-22-2023 10:04-0400 Heart rate 57 /min Dr. Addi Mario Work Phone: [facility] 01-22-2023 10:04-0400 Respiratory rate 18 /min Dr. Addi Mario Work Phone: [facility] 01-22-2023 10:04-0400 SaO2% (BldA) [Mass fraction] 97 % Dr. Addi Mario Work Phone: [facility] 01-22-2023 10:04-0400 Systolic blood pressure 141 mm[Hg] Dr. Addi Mario Work Phone: [facility] 12-29-2022 14:18-0400 Body mass index (BMI) [Ratio] 31.7 kg/m2 Dr. Addi Mario Work Phone: [facility] 12-29-2022 14:18-0400 Body temperature 97.9 [degF] Dr. Addi Mario Work Phone: [facility] 12-29-2022 14:18-0400 Body weight 106.[address] Addi Mario Work Phone: [facility] 12-29-2022 14:18-0400 Diastolic blood pressure 70 mm[Hg] Dr. Addi Mario Work Phone: [facility] 12-29-2022 14:18-0400 Heart rate 57 /min Dr. Addi Mario Work Phone: [facility] 12-29-2022 14:18-0400 Respiratory rate 12 /min Dr. Addi Mario Work Phone: [facility] 12-29-2022 14:18-0400 SaO2% (BldA) [Mass fraction] 97 % Dr. Addi Mario Work Phone: [facility] 12-29-2022 14:18-0400 Systolic blood pressure 138 mm[Hg] Dr. Addi Mario Work Phone: [facility] 11-03-2022 08:14-0500 Body mass index (BMI) [Ratio] 31.1 kg/m2 Dr. Addi Mario Work Phone: [facility] 11-03-2022 08:14-0500 Body temperature 97.2 [degF] Dr. Addi Mario Work Phone: [facility] 11-03-2022 08:14-0500 Body weight 104.[address] Addi Mario Work Phone: [facility] 11-03-2022 08:14-0500 Diastolic blood pressure 80 mm[Hg] Dr. Addi Mario Work Phone: [facility] 11-03-2022 08:14-0500 Heart rate 64 /min Dr. Addi Mario Work Phone: [facility] 11-03-2022 08:14-0500 Respiratory rate 18 /min Dr. Addi Mario Work Phone: [facility] 11-03-2022 08:14-0500 SaO2% (BldA) [Mass fraction] 97 % Dr. Addi Mario Work Phone: [facility] 11-03-2022 08:14-0500 Systolic blood pressure 157 mm[Hg] Dr. Addi Mario Work Phone: [facility] 10-05-2022 13:09-0500 Body height 182.[address] Addi Mario Work Phone: [facility] 10-05-2022 13:09-0500 Body mass index (BMI) [Ratio] 31.8 kg/m2 Dr. Addi Mario Work Phone: [facility] 10-05-2022 13:09-0500 Body weight 106.[address] Addi Mario Work Phone: [facility] 10-05-2022 13:09-0500 Diastolic blood pressure 80 mm[Hg] Dr. Addi Mario Work Phone: [facility] 10-05-2022 13:09-0500 Heart rate 56 /min Dr. Addi Mario Work Phone: [facility] 10-05-2022 13:09-0500 Respiratory rate 16 /min Dr. Addi Mario Work Phone: [facility] 10-05-2022 13:09-0500 Systolic blood pressure 153 mm[Hg] Dr. Addi Mario Work Phone: [facility] 09-08-2022 12:09-0500 Diastolic blood pressure 66 mm[Hg] Dr. Addi Mario Work Phone: [facility] 09-08-2022 12:09-0500 Heart rate 54 /min Dr. Addi Mario Work Phone: [facility] 09-08-2022 12:09-0500 Systolic blood pressure 116 mm[Hg] Dr. Addi Mario Work Phone: [facility] 08-27-2022 15:25-0500 Diastolic blood pressure 74 mm[Hg] Dr. Addi Mario Work Phone: [facility] 08-27-2022 15:25-0500 Systolic blood pressure 142 mm[Hg] Dr. Addi Mario Work Phone: [facility] 08-27-2022 15:04-0500 Body height 182.[address] Addi Mario Work Phone: [facility] Work Phone: 08-27-2022 15:04-0500 Body mass index (BMI) [Ratio] 32.3 kg/m2 Dr. Addi Mario Work Phone: [facility] 08-27-2022 15:04-0500 Body temperature 96.3 [degF] Dr. Addi Mario Work Phone: [facility] 08-27-2022 15:04-0500 Body weight 107.[address] Addi Mario Work Phone: [facility] 08-27-2022 15:04-0500 Heart rate 55 /min Dr. Addi Mario Work Phone: [facility] 08-27-2022 15:04-0500 Respiratory rate 16 /min Dr. Addi Mario Work Phone: [facility] 08-27-2022 15:04-0500 SaO2% (BldA) [Mass fraction] 99 % Dr. Addi Mario Work Phone: [facility] 08-24-2022 08:12-0500 Diastolic blood pressure 70 mm[Hg] Dr. Addi Mario Work Phone: [facility] 08-24-2022 08:12-0500 Heart rate 56 /min Dr. Addi Mario Work Phone: [facility] 08-24-2022 08:12-0500 Respiratory rate 16 /min Dr. Addi Mario Work Phone: [facility] 08-24-2022 08:12-0500 SaO2% (BldA) [Mass fraction] 97 % Dr. Addi Mario Work Phone: [facility] 08-24-2022 08:12-0500 Systolic blood pressure 154 mm[Hg] Dr. Addi Mario Work Phone: [facility] 08-24-2022 06:09-0500 Body height 182.[address] Addi Mario Work Phone: [facility] Work Phone: 08-24-2022 06:09-0500 Body mass index (BMI) [Ratio] 32.8 kg/m2 Dr. Addi Mario Work Phone: [facility] 08-24-2022 06:09-0500 Body temperature 96.8 [degF] Dr. Addi Mario Work Phone: [facility] 08-24-2022 06:09-0500 Body weight 109.[address] Addi Mario Work Phone: [facility] 08-04-2022 14:02-0500 Body height 182.[address] Addi Mario Work Phone: [facility] Work Phone: 08-04-2022 14:02-0500 Body mass index (BMI) [Ratio] 32.3 kg/m2 Dr. Addi Mario Work Phone: [facility] 08-04-2022 14:02-0500 Body temperature 97.2 [degF] Dr. Addi Mario Work Phone: [facility] 08-04-2022 14:02-0500 Body weight 107.[address] Addi Mario Work Phone: [facility] 08-04-2022 14:02-0500 Diastolic blood pressure 78 mm[Hg] Dr. Addi Mario Work Phone: [facility] 08-04-2022 14:02-0500 Heart rate 52 /min Dr. Addi Mario Work Phone: [facility] 08-04-2022 14:02-0500 Respiratory rate 16 /min Dr. Addi Mario Work Phone: [facility] 08-04-2022 14:02-0500 SaO2% (BldA) [Mass fraction] 99 % Dr. Addi Mario Work Phone: [facility] 08-04-2022 14:02-0500 Systolic blood pressure 130 mm[Hg] Dr. Addi Mario Work Phone: [facility] 05-06-2022 11:43-0400 Body mass index (BMI) [Ratio] 32.4 kg/m2 Dr. Addi Mario Work Phone: [facility] Work Phone: 05-06-2022 11:43-0400 Body temperature 98.4 [degF] Dr. Addi Mario Work Phone: [facility] Work Phone: 05-06-2022 11:43-0400 Body weight 108.[address] Addi Mario Work Phone: [facility] Work Phone: 05-06-2022 11:43-0400 Diastolic blood pressure 72 mm[Hg] Dr. Addi Mario Work Phone: [facility] Work Phone: 05-06-2022 11:43-0400 Heart rate 61 /min Dr. Addi Mario Work Phone: [facility] Work Phone: 05-06-2022 11:43-0400 Respiratory rate 16 /min Dr. Addi Mario Work Phone: [facility] Work Phone: 05-06-2022 11:43-0400 SaO2% (BldA) [Mass fraction] 98 % Dr. Addi Mario Work Phone: [facility] Work Phone: 05-06-2022 11:43-0400 Systolic blood pressure 145 mm[Hg] Dr. Addi Mario Work Phone: [facility] Work Phone: 12-03-2021 14:07-0400 Body height 182.[address] Addi Mario Work Phone: [facility] Work Phone: 12-03-2021 14:07-0400 Body mass index (BMI) [Ratio] 32.3 kg/m2 Dr. Addi Mario Work Phone: [facility] Work Phone: 12-03-2021 14:07-0400 Body temperature 97.5 [degF] Dr. Addi Mario Work Phone: [facility] Work Phone: 12-03-2021 14:07-0400 Body weight 107.[address] Addi Mario Work Phone: [facility] Work Phone: 12-03-2021 14:07-0400 Diastolic blood pressure 82 mm[Hg] Dr. Addi Mario Work Phone: [facility] Work Phone: 12-03-2021 14:07-0400 Heart rate 73 /min Dr. Addi Mario Work Phone: [facility] Work Phone: 12-03-2021 14:07-0400 Respiratory rate 20 /min Dr. Addi Mario Work Phone: [facility] Work Phone: 12-03-2021 14:07-0400 SaO2% (BldA) [Mass fraction] 97 % Dr. Addi Mario Work Phone: [facility] Work Phone: 12-03-2021 14:07-0400 Systolic blood pressure 132 mm[Hg] Dr. Addi Mario Work Phone: [facility] Work Phone: 11-12-2021 11:46-0500 Body mass index (BMI) [Ratio] 32.8 kg/m2 Dr. Addi Mario Work Phone: [facility] Work Phone: 11-12-2021 11:46-0500 Body temperature 97.5 [degF] Dr. Addi Mario Work Phone: [facility] Work Phone: 11-12-2021 11:46-0500 Body weight 109.[address] Addi Mario Work Phone: [facility] Work Phone: 11-12-2021 11:46-0500 Diastolic blood pressure 68 mm[Hg] Dr. Addi Mario Work Phone: [facility] Work Phone: 11-12-2021 11:46-0500 Heart rate 47 /min Dr. Addi Mario Work Phone: [facility] Work Phone: 11-12-2021 11:46-0500 Respiratory rate 16 /min Dr. Addi Mario Work Phone: [facility] Work Phone: 11-12-2021 11:46-0500 SaO2% (BldA) [Mass fraction] 98 % Dr. Addi Mario Work Phone: [facility] Work Phone: 11-12-2021 11:46-0500 Systolic blood pressure 150 mm[Hg] Dr. Addi Mario Work Phone: [facility] Work Phone: 11-11-2021 14:41-0500 Diastolic blood pressure 92 mm[Hg] Dr. Addi Mario Work Phone: [facility] Work Phone: 11-11-2021 14:41-0500 Systolic blood pressure 182 mm[Hg] Dr. Addi Mario Work Phone: [facility] Work Phone: 10-15-2021 13:09-0500 Body mass index (BMI) [Ratio] 32.9 kg/m2 Dr. Addi Mario Work Phone: [facility] Work Phone: 10-15-2021 13:09-0500 Body temperature 97.7 [degF] Dr. Addi Mario Work Phone: [facility] Work Phone: 10-15-2021 13:09-0500 Body weight 110.[address] Addi Mario Work Phone: [facility] Work Phone: 10-15-2021 13:09-0500 Diastolic blood pressure 70 mm[Hg] Dr. Addi Mario Work Phone: [facility] Work Phone: 10-15-2021 13:09-0500 Heart rate 66 /min Dr. Addi Mario Work Phone: [facility] Work Phone: 10-15-2021 13:09-0500 Respiratory rate 16 /min Dr. Addi Mario Work Phone: [facility] Work Phone: 10-15-2021 13:09-0500 SaO2% (BldA) [Mass fraction] 97 % Dr. Addi Mario Work Phone: [facility] Work Phone: 10-15-2021 13:09-0500 Systolic blood pressure 142 mm[Hg] Dr. Addi Mario Work Phone: [facility] Work Phone: 09-23-2021 13:16-0500 Body mass index (BMI) [Ratio] 32.8 kg/m2 Dr. Addi Mario Work Phone: [facility] Work Phone: 09-23-2021 13:16-0500 Body temperature 95.7 [degF] Dr. Addi Mario Work Phone: [facility] Work Phone: 09-23-2021 13:16-0500 Body weight 109.[address] Addi Mario Work Phone: [facility] Work Phone: 09-23-2021 13:16-0500 Diastolic blood pressure 70 mm[Hg] Dr. Addi Mario Work Phone: [facility] Work Phone: 09-23-2021 13:16-0500 Heart rate 57 /min Dr. Addi Mario Work Phone: [facility] Work Phone: 09-23-2021 13:16-0500 Respiratory rate 16 /min Dr. Addi Mario Work Phone: [facility] Work Phone: 09-23-2021 13:16-0500 SaO2% (BldA) [Mass fraction] 96 % Dr. Addi Mario Work Phone: [facility] Work Phone: 09-23-2021 13:16-0500 Systolic blood pressure 166 mm[Hg] Dr. Addi Mario Work Phone: [facility] Work Phone: 08-18-2021 13:02-0500 Body mass index (BMI) [Ratio] 32.9 kg/m2 Dr. Addi Mario Work Phone: [facility] Work Phone: 08-18-2021 13:02-0500 Body weight 110.[address] Addi Mario Work Phone: [facility] Work Phone: 08-18-2021 13:02-0500 Diastolic blood pressure 69 mm[Hg] Dr. Addi Mario Work Phone: [facility] Work Phone: 08-18-2021 13:02-0500 Heart rate 47 /min Dr. Addi Mario Work Phone: [facility] Work Phone: 08-18-2021 13:02-0500 Respiratory rate 14 /min Dr. Addi Mario Work Phone: [facility] Work Phone: 08-18-2021 13:02-0500 Systolic blood pressure 127 mm[Hg] Dr. Addi Mario Work Phone: [facility] Work Phone: Encounters Encounter Date Encounter Type Care Provider Facility Start: 03-17-2025 End: 03-17-2025 Emergency department patient visit Dr. Addi Mario MD Work Phone: -Emergency Department Work Phone: Start: 03-14-2025 Patient encounter procedure Gretchen Nguyen [employer]-C -Laboratory [place] Start: 03-14-2025 ambulatory Gretchen Nguyen DIRECTOR [employer]ICS Facili ty:[facility] Start: 03-10-2025 End: 03-10-2025 Emergency department patient visit Dr. Addi Mario MD Work Phone: -Emergency Department Work Phone: Start: 03-07-2025 End: 03-07-[address] Addi Mario MD Work Phone: [facility] Work Phone: Start: 03-07-2025 End: 03-07-2025 Patient encounter procedure Gretchen Nguyen [employer]-C -Laboratory Work Phone: Start: 03-07-2025 End: 03-07-2025 ambulatory Gretchen Nguyen NP Facility:[facility] Start: 03-05-2025 Non-patient / Non-visit Dr. Woody Montana MD -[facility] Work Phone: Start: 03-05-2025 Patient encounter procedure Gretchen Nguyen DIRECTOR [employer]-C -Pulmonary Services/Neurology Work Phone: Start: 03-05-2025 ambulatory Woody Bruno cility:[facility] Start: 02-19-2025 End: 02-19-2025 Patient encounter procedure Gretchen Nguyen DIRECTOR [employer]-C -[facility] Work Phone: Start: 02-19-2025 End: 02-19-[address] Addi Mario MD Work Phone: [facility] Work Phone: Start: 02-14-2025 End: 02-14-[address] Addi Mario MD -[facility] Work Phone: Start: 02-14-2025 End: 02-14-[address] 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 Addi Mario MD Work Phone: [facility] Work Phone: Start: 01-02-2025 End: 01-02-[address] Addi Mario MD -Radiology, [facility] Work Phone: Start: 01-02-2025 End: 01-02-2025 ambulatory [facility] Facility:[facility] Start: 12-31-2024 [facility] for antib[facility] dy [facility] Start: 12-27-2024 End: 12-27-[address] Addi Mario MD Work Phone: [facility] Work Phone: Start: 12-27-2024 End: 12-27-[address] Addi Mario MD -Laboratory, [place] Start: 12-27-2024 End: 12-27-[facility] Start: 12-19-[address] Addi Mario MD Work Phone: [facility] Start: 12-14-2024 End: 12-14-2024 Patient encounter procedure Ailin Sharma NP- -[facility] Work Phone: Start: 12-14-2024 End: 12-14-2024 ambulatory Ailin Sharma NP Facility:[facility] Start: 11-30-2024 End: 11-30-2024 ambulatory billy Shelbi Facility:[facility] Start: 11-30-2024 End: 11-30-[address] Addi Mario MD -[facility] Work Phone: Start: 11-27-2024 End: 11-27-2024 Telephone encounter Alexis Green MD Work Phone: Ophthalmology Start: 11-26-2024 End: 11-26-2024 ambulatory MANUEL LOGAN Facility:[facility] Start: 11-26-2024 End: 11-26-2024 Patient encounter procedure Shawn Shea MD Work Phone: Ophthalmology Comment on above: 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, severe stage Start: 11-15-2024 End: 11-15-[address] Addi Mario MD -[facility] Work Phone: Start: 11-15-2024 End: 11-15-[address] Addi Mario MD Work Phone: [facility] Work Phone: Start: 11-15-2024 End: 11-15-2024 ambulatory [facility] Facility:[facility] Start: 10-23-2024 End: 10-23-2024 Patient encounter procedure Ava Cardozo [place] -[facility] Work Phone: Start: 10-23-2024 End: 10-23-[facility] Start: 10-03-2024 End: 10-03-2024 Telephone encounter Shawn Shea MD Work Phone: Ophthalmology Comment on above: follow up from 08/08 25 Start: 08-15-2024 End: 08-15-[address] Addi Mario MD -[facility] Work Phone: Start: 08-15-2024 End: 08-15-2024 ambulatory [facility] Facility:[place] Start: 08-14-2024 End: 08-15-2024 ambulatory MANUEL LOGAN Facility:[facility] Start: 08-14-2024 End: 08-14-2024 Patient encounter [...] Start: 07-30-2024 End: 07-30-2024 ambulatory MANUEL LOGAN Facility:[facility] Start: 07-30-2024 End: 07-30-2024 Patient encounter procedure Shawn Shea MD Work Phone: Ophthalmology Comment on above: 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, severe stage Start: 06-14-2024 End: 06-14-2024 ambulatory Efewongbe Oleghe Facility:[facility] Start: 05-16-2024 End: 05-16-2024 ambulatory Efewongbe Oleghe Facility:[facility] Start: 05-16-2024 End: 05-16-2024 ambulatory Efewongbe Oleghe Facility:[facility] Start: 05-15-2024 End: 05-15-2024 Telephone encounter Shawn Shea MD Work Phone: Ophthalmology Comment on above: Follow Up Start: 04-30-2024 ambulatory Ailin Zachary DIRECT[employer]ICS Fac ility:[facility] Start: 04-26-2024 End: 04-26-2024 ambulatory Ailin Sharma [employer] Facility:[facility] Start: 04-24-2024 End: 04-24-2024 ambulatory Ailin Sharma [employer] Facility:[facility] Start: 04-21-2024 End: 04-21-2024 ambulatory Ava Cardozo Facility:[facility] Start: 04-19-2024 End: 04-19-2024 ambulatory Efewongbe Oleghe Facility:[facility] Start: 04-17-2024 End: 04-17-2024 ambulatory Efewongbe Oleghe Facility:[facility] Start: 03-14-2024 Telephone encounter Lucina Wall Ophthalmology Comment on above: Consult to [facility] Start: 03-12-2024 End: 03-12-2024 ambulatory MANUEL LOGAN Facility:[facility] Start: 03-12-2024 End: 03-12-2024 Patient encounter [...] Addi Mario Work Phone: [facility] Work Phone: Start: 12-21-2023 End: 12-21-2023 Admission to same day surgery center Dr. Addi Mario Work Phone: [facility] Start: 12-21-2023 End: 12-21-[address] Addi Mario Work Phone: [facility] Work Phone: Start: 12-08-2023 End: 01-01-2024 Evaluation and management of inpatient Dr. Addi Mario Work Phone: [facility]-Transitional Care Unit Start: 12-08-2023 Non-patient / Non-visit Dr. Addi Mario Work Phone: [facility] Work Phone: Start: 12-07-2023 Non-patient / Non-visit Dr. Addi Mario Work Phone: [facility] Work Phone: Start: 12-06-2023 Non-patient / Non-visit Dr. Addi Mario Work Phone: [facility] Work Phone: Start: 12-06-2023 Non-patient / Non-visit Dr. Addi Mario Work Phone: [facility] Start: 12-05-2023 Non-patient / Non-visit Dr. Addi Mario Work Phone: [facility] Work Phone: Start: 12-05-2023 Non-patient / Non-visit Dr. Addi Mario Work Phone: [facility] Start: 12-04-2023 Non-patient / Non-visit Dr. Addi Mario Work Phone: [facility] Work Phone: Start: 12-03-2023 Non-patient / Non-visit Dr. Addi Mario Work Phone: [facility] Work Phone: Start: 12-03-2023 Non-patient / Non-visit Dr. Addi Mario Work Phone: [facility] Start: 12-02-2023 Non-patient / Non-visit Dr. Addi Mario Work Phone: [facility] Work Phone: Start: 12-02-2023 End: 12-08-2023 Evaluation and management of inpatient Dr. 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 Addi Mario Work Phone: [facility] Work Phone: Start: 10-17-2023 End: 10-17-[address] Addi Mario Work Phone: [facility]-Pulmonary Services/Neurology Work Phone: Start: 09-02-2023 Telephone encounter Shawn Shea MD Work Phone: Ophthalmology Start: 08-15-2023 End: 08-15-[address] Addi Mario Work Phone: [facility] Work Phone: Start: 07-04-2023 End: [...] 04-30-[address] Addi Mario Work Phone: [facility] Work Phone: Start: 04-30-2023 End: 04-30-[address] Addi Mario Work Phone: [facility]-Radiology, [facility] Work Phone: Start: 04-28-2023 End: 04-28-[address] Addi Mario Work Phone: [facility] Work Phone: Start: 04-22-2023 End: 04-22-2023 Emergency department patient visit Dr. Addi Mario Work Phone: [facility]-Emergency Department Work Phone: Start: 04-12-2023 End: 04-12-[address] Addi Mario Work Phone: [facility] Work Phone: Start: 03-25-2023 End: 03-25-2023 Emergency department patient [facility] Add[facility] Start: 03-24-2023 End: 03-24-[address] Addi Mario Work Phone: [facility] Work Phone: Start: 03-23-2023 End: 03-23-[address] Addi Mario Work Phone: [facility] [place] Start: 03-21-2023 End: 03-21-2023 Emergency department patient visit Dr. Addi Mario [facility] Start: 03-12-2023 End: 03-12-2023 Emergency department patient visit Dr[facility] Addi Mario [facility] Start: 01-24-2023 End: 01-24-[address] Addi Mario Work Phone: [facility] Start: 01-22-2023 End: 01-22-2023 Emergency department patient visit Dr. Addi Mario Work Phone: [facility]Emergency Department Start: 12-29-2022 End: 12-29-[address] Addi Mario Work Phone: [facility] Internal Medicine Start: 11-03-2022 End: 11-03-[address] Addi Mario [facility] Start: 10-14-2022 Non-patient / Non-visit Dr. Addi Mario Work Phone: [facility] Start: 10-14-2022 End: 10-14-[address] Addi Mario Work Phone: [facility] Work Phone: Start: 10-14-2022 End: 10-14-[address] Addi Mario Work Phone: [facility]-Cardiovascular Services Start: 10-05-2022 End: 10-05-[address] Addi Mario Work Phone: [facility] Start: 09-08-2022 End: 09-08-[address] Addi Mario [facility] Start: 09-08-2022 End: 09-08-[address] Addi Mario Work Phone: [facility] Start: 09-04-2022 End: 09-04-[address] Addi Mario Work Phone: [facility] Work Phone: Start: 09-04-2022 End: 09-04-[address] Addi Mario Work Phone: [facility]-Laboratory Start: 08-27-2022 End: 08-27-[address] Addi Mario Work Phone: [facility] Start: 08-24-2022 End: 08-24-2022 Emergency department patient visit Dr. Addi Mario Work Phone: [facility]-Emergency Department Start: 08-04-2022 End: 08-04-[address] Addi Mario Work Phone: [facility] Work Phone: Start: 08-04-2022 End: 08-04-[address] Addi Mario Work Phone: [facility] Start: 08-04-2022 End: 08-04-[address] Addi Mario Work Phone: [facility] Internal Medicine Start: 07-10-2022 Refill Tristan rodriguez MD Work Phone: [facility] Cardiology Comment on above: Refill Request Start: 05-06-2022 End: 05-06-[address] Add[facility] Mario [facility] Start: 12-11-2021 End: 12-11-[address] Addi Mario Work Phone: [facility]Neurology Start: 12-03-2021 End: 12-03-[address] Addi Mario Work Phone: [facility] Start: 12-03-2021 End: 12-03-[address] Addi Mario Work Phone: [facility] Start: 11-30-2021 End: 11-30-[address] Addi Mario Work Phone: [facility] Orthopaedic [facility] Start: 11-12-2021 End: 11-12-[address] Addi Mario Work Phone: [facility] Start: 11-11-2021 End: 11-11-[address] Addi Mario Work Phone: [facility] Internal Medicine Start: 10-15-2021 End: 10-15-[address] Addi Mario Work Phone: [facility] Internal [facility] Start: 09-23-2021 End: 09-23-[address] Addi Mario [facility] Start: 08-18-2021 End: 08-18-[address] Addi Mario Work Phone: [facility] Start: 08-17-2021 Non-patient / Non-visit Dr. Addi Mario Work Phone: [facility] Start: 08-17-[address] Addi Mario Work Phone: [facility] Start: 12-22-2014 Patient encounter procedure Tristan Montana MD Work Phone: [facility] Procedures Date Procedure Procedure Detail Performing Clinician Start: 03-10-2025 X-ray of foot, three or more views Dr. Addi Mario MD Work Phone: Start: 01-02-[address] Thiago Mraio MD Work Phone: Start: 11-26-2024 Computerized ophthal jacoby imaging optic nerve Shawn Shea MD Work Phone: Start: 11-15-2024 Total iron binding capacity measurement Dr. Addi Mario MD Work Phone: Start: 07-30-2024 Visual field xm uni/ bi w/interp extended exam Shawn Shea MD Work Phone: Start: 03-14-2024 CONSULT TO [facility] Shawn Shea MD Work Phone: [...] and pe lvis without contrast Dr. Addi Maroi Work Phone: Start: 12-06-2023 US urinary tract [...] DTaP,Tdap,Td Vaccine (2 - Td or Tdap) [facility] Start: 01-29-2026 End: 07-08-2026 OCT OPTIC NERVE CIRRUS OU (BOTH EYES) OCT OPTIC NERVE CIRRUS OU (BOTH EYES) [facility] Imaging Routine Primary open angle glaucoma (POAG) of both eyes, severe stage Expected: 01/29/2026, Expires: 07/08/2026 [facility] Work Phone: Comment on above: Expected: 01/29/2026, Expires: Start: 12-11-2025 End: 05-20-2026 OCT OPTIC NERVE CIRRUS OU (BOTH EYES) OCT OPTIC NERVE CIRRUS OU (BOTH EYES) [facility] Imaging Routine Primary open angle glaucoma (POAG) of both eyes, severe stage Expected: 12/11/2025, Expires: 05/20/2026 [facility] Work Phone: Comment on above: Expected: 12/11/2025, Expires: Start: 08-14-2025 End: 01-21-2026 OCT OPTIC NERVE CIRRUS OU (BOTH EYES) OCT OPTIC NERVE CIRRUS OU (BOTH EYES) [facility] Imaging Routine Primary open angle glaucoma (POAG) of both eyes, severe stage Expected: 08/14/2025, Expires: 01/21/2026 [facility] Work Phone: Comment on above: Expected: 08/14/2025, Expires: Start: 06-03-2025 End: 06-03-2025 Patient encounter procedure Ophthalmology Comment on above: Return in about 6 months (around 05/29/20) for OCT OU. Start: 03-27-2025 End: 09-03-2025 VISUAL FIELD 24-2 OU (BOTH EYES) VISUAL FIELD 24-2 OU (BOTH EYES) [facility] Imaging Routine Primary open angle glaucoma (POAG) of both eyes, severe stage Expected: 03/27/2025, Expires: 09/03/2025 [facility] Work Phone: Comment on above: Expected: 03/27/2025, Expires: Start: 03-17-2025 [facility] Start: 03-10-2025 [facility] Start: 02-19-2025 Evaluation of diagnostic study results [facility] Start: 02-14-2025 CBC W Auto Differential panel - Blood [facility] Start: 02-14-2025 Comprehensive metabolic 2000 panel - Serum or Plasma [facility] Start: 02-14-2025 Magnesium measurement [facility] Start: 02-14-2025 T4 free measurement [facility] Start: 02-14-2025 Thyroid stimulating hormone measurement [facility] Start: 12-23-2024 Covid-19 Vaccine ( season) Covid-19 Vaccine () [facility] Start: 11-26-2024 End: 11-26-2024 Patient encounter procedure 11/26/2024 2:00 PM EDT Office Visit [facility] [id number] [id number] Shawn Shea MD [address] [place] [address] Return in about 4 months (around 11/27/2024) for OCT OU. Ophthalmology Comment on above: Return in about 4 months (around 11/28/19) for OCT OU. Start: 11-21-2024 End: 04-30-2025 OCT OPTIC NERVE CIRRUS OU (BOTH EYES) OCT OPTIC NERVE CIRRUS OU (BOTH EYES) [facility] Imaging Routine Primary open angle glaucoma (POAG) of both eyes, severe stage Expected: 11/21/2024, Expires: 04/30/2025 [facility] Work Phone: Comment on above: Expected: 11/21/2024, Expires: Start: 09-24-2024 End: 09-24-2024 Patient encounter procedure 09/24/2024 1:30 PM EST Office Visit [facility] [address] [id number] Shawn Shea MD [address] [place] [address] Return in about 6 months (around 09/11/2024) for VF . Ophthalmology Comment on above: Return in about 6 months (around 024) for VF . Start: 09-19-2024 Advance Directive Discussion Advance Directive Discussion [facility] Start: 07-30-2024 End: 07-30-2024 Patient encounter procedure 07/30/2024 2:00 PM EST Office Visit [facility] Ophthal[facility] [address] [place] [address] Shawn Shea MD [address] [place] [address] Return in about 6 months (around 05/07/2024) for OCT OU. Ophthalmology Comment on above: Return in about 6 months (around 05/07/20 24) for OCT OU. Start: 06-15-2024 End: 11-22-2024 PACHYMETRY OU (BOTH EYES) PACHYMETRY OU (BOTH EYES) [facility] Imaging Routine Primary open angle glaucoma (POAG) of both eyes, severe stage Expected: 06/15/2024, Expires: 11/22/2024 [facility] Work Phone: Comment on above: Expected: 06/15/2024, Expires: Start: 06-15-2024 End: 11-22-2024 VISUAL FIELD 24-2 OU (BOTH EYES) VISUAL FIELD 24-2 OU (BOTH EYES) [facility] Imaging Routine Primary open angle glaucoma (POAG) of both eyes, severe stage Expected: 06/15/2024, Expires: 11/22/2024 [facility] Work Phone: Comment on above: Expected: 06/15/2024, Expires: Start: 05-20-2024 Influenza vaccination Influenza Vaccine (#1) [facility] Start: 05-07-2024 End: 05-07-2024 Patient encounter procedure 05/07/2024 2:00 PM EDT Office Visit [facility] [address] [place] [address] Shawn Shea MD [address] [place] [address] Return in about 6 months (around 05/07/2024) for OCT OU. Ophthalmology Comment on above: Return in about 6 months (around 05/07/20) for OCT OU. Start: 03-12-2024 End: 03-12-2024 Patient encounter procedure 03/12/2024 1:45 PM EDT Office Visit [facility] [address] [place] [address] Shawn Shea MD [address] [place], [place] [id number] date 03/12 Ophthalmology Comment on above: date 03/12 Start: 01-01-2024 Patient discharge [facility] Start: 12-30-2023 Blood chemistry [facility] Start: 12-22-2023 Referral to service [facility] Start: 12-21-2023 Patient discharge [facility] Start: 12-21-2023 Ambulation without limitation [facility] Start: 12-21-2023 Medication education [facility] Start: 12-21-2023 Taking patient vital signs [facility] Start: 12-21-2023 [facility] Start: 12-21-2023 Anes transurethral w/urethrocystoscopy nos ANESTH BLADDER SURGERY [facility] Start: 12-21-2023 Cysto w/ureteroscopy w/lithotripsy CYSTOURETERO W/LITHOTRIPSY [facility] Start: 12-15-2023 Speech therapy management [facility] Start: 12-15-2023 Speech therapy assessment [facility] Start: 12-09-2023 Development of care plan [facility] Start: 12-09-2023 Developing a treatment plan [facility] Start: 12-09-2023 [facility] Start: 12-08-2023 Verification routine [facility] Start: 12-08-2023 Following clinical pathway protocol [facility] Start: 12-08-2023 Admission procedure [facility] Start: 12-08-2023 Measuring intake and output [facility] Start: 12-08-2023 Patient referral to dietitian [facility] Start: 12-08-2023 Referral to occupational therapist [facility] Start: 12-08-2023 Referral to service [facility] Start: 12-08-2023 Vital signs measurements [facility] Start: 12-08-2023 [facility] Start: 12-08-2023 Patient discharge [facility] Start: 12-06-2023 Consultation [facility] Start: 12-06-2023 Patient referral [facility] Work Phone: Start: 12-05-2023 Notification of physician [facility] Start: 12-05-2023 Patient education [facility] Start: 12-05-2023 Provision of activity privileges [facility] Start: 12-05-2023 Pulse taking [facility] Start: 12-05-2023 Taking patient vital signs [facility] Start: 12-05-2023 Wound care [facility] Start: 12-05-2023 [facility] Start: 12-04-2023 Application of intermittent pneumatic compression device [facility] Start: 12-03-2023 Referral to occupational therapist [facility] Start: 12-03-2023 Referral to service [facility] Start: 12-03-2023 Inhalation therapy procedure [facility] Start: 12-02-2023 Following clinical pathway protocol [facility] Start: 12-02-2023 Ambulation without limitation [facility] Start: 12-02-2023 Assessment of risk of venous thromboembolism [facility] Start: 12-02-2023 Insertion of catheter into peripheral vein [facility] Start: 12-02-2023 Measuring intake and output [facility] Start: 12-02-2023 Providing care according to standard [facility] Start: 12-02-2023 Referral to product introduction manager [facility] Start: 12-02-2023 Referral to service [facility] Start: 12-02-2023 [facility] Start: 12-02-2023 Admission procedure [facility] Start: 12-02-2023 Hospital admission, emergency, from emergency room, medical nature [facility] Start: 12-02-2023 Troponin I measurement [facility] Start: 12-02-2023 [facility] Start: 12-02-2023 Bacteria identified in Blood by Culture Blood Culture [facility] Start: 12-02-2023 Bacteria identified in Urine by Culture [facility] Start: 12-02-2023 End: 12-02-2023 Blood culture [facility] Start: 12-02-2023 [facility] Start: 11-29-2023 Covid-19 Vaccine () Covid-19 Vaccine () [facility] Start: 09-19-2023 Advance Directive Discussion Advance Directive Discussion [facility] Start: 09-19-2023 Behavioral Health Screening Behavioral Health Screening [facility] Start: 09-19-2023 Depression Assessment Depression Assessment [facility] Start: 05-20-2023 Covid-19 Vaccine ( season) Covid-19 Vaccine () [facility] Start: 05-20-2023 Influenza vaccination Influenza Vaccine (#1) [facility] Start: 04-22-2023 [facility] Start: 03-25-2023 Control nasal hemorrhage anterior simple CONTROL OF NOSEBLEED [facility] Start: 10-17-2022 Covid-19 Vaccine (6 - Moderna series) Covid-19 Vaccine (6 - Moderna series) [facility] Start: 09-19-2022 Advance Directive Discussion Advance Directive Discussion [facility] Start: 09-19-2022 Depression Assessment Depression Assessment [facility] Start: 05-20-2022 Influenza vaccination INFLUENZA (#1) [facility] Start: 09-19-2021 ADVANCE DIRECTIVE DISCUSSION ADVANCE DIRECTIVE DISCUSSION [facility] Start: 09-19-2021 DEPRESSION ASSESSMENT DEPRESSION ASSESSMENT [facility] Start: 09-22-2019 SHINGRIX VACCINE (3 of 3) SHINGRIX VACCINE (3 of 3) [facility] Start: 03-11-2019 DIABETES SCREEN DIABETES SCREEN [facility] Start: 03-11-2019 Diabetes Screening Diabetes Screening [facility] Start: 11-09-2017 Hepatitis B surface antibody level LDL Cholesterol [facility] Start: 05-25-2007 Urine microalbumin profile [facility] Start: 1997 Hepatitis B Vaccine (1 of 3 - Risk 3-dose series) Hepatitis B Vaccine (1 of 3 - Risk 3-dose series) [facility] Start: 02-21-1956 Hepatitis A Vaccine (1 of 2 - Risk 2-dose series) Hepatitis A Vaccine (1 of 2 - Risk 2-dose series) [facility] Start: 1955 Anxiety Screening Anxiety Screening [facility] Start: 1955 Depression Screening Depression Screening [facility] Start: 1955 Spirometry Spirometry [facility] Start: 1937 COVID-19 VACCINE (#1) COVID-19 VACCINE (#1) [facility] Alanine aminotransfe rase [Enzymatic activity/volume] in Serum or Plasma [facility] Albumin [Mass/volume ] in Serum or Plasma [facility] Alkaline phosphatase [Enzymatic activity/volume] in Serum or Plasma [facility] Ambulatory ECG [facility] Anion gap in Serum o r Plasma [facility] Anion gap measurement [facility] Bilirubin, total measurement [facility] Blood chemistry [facility] BUN/Creatinine ratio [facility] BUN/Creatinine ratio [facility] Calcium [Mass/volume ] in Serum or Plasma [facility] Calcium [Mass/volume ] in Serum or Plasma [facility] Carbon dioxide, tota l [Moles/volume] in Central venous blood [facility] Carbon dioxide, tota l [Moles/volume] in Serum or Plasma [facility] CBC W Auto Different ial panel - Blood [facility] Work Phone: Chloride [Moles/volu me] in Serum or Plasma [facility] Complete blood count [facility] Creatinine [Mass/vol ume] in Serum or Plasma [facility] Creatinine [Moles/vo lume] in Serum or Plasma [facility] Erythrocyte mean corpuscular volume determination [facility] Erythrocyte mean corpuscular volume determination [facility] Folate [Mass/volume] in Serum or Plasma [facility] Work Phone: Glucose [Mass/volume ] in Serum or Plasma [facility] Glucose [Mass/volume ] in Serum or Plasma [facility] Hematocrit [Volume Fraction] of Blood [facility] Hematocrit [Volume Fraction] of Blood [facility] Hemoglobin [Mass/vol ume] in Blood [facility] Hemoglobin [Mass/vol ume] in Blood [facility] Leukocytes [#/volume ] in Blood [facility] Leukocytes [#/volume ] in Blood [facility] Mean corpuscular hemoglobin concentration determination [facility] Mean corpuscular hemoglobin concentration determination [facility] Mean corpuscular hemoglobin determination [facility] Mean corpuscular hemoglobin determination [facility] Measurement of renal function [facility] Measurement of renal function [facility] Neutrophil count [facility] Neutrophil count [facility] Neutrophil percent differential count [facility] Neutrophil percent differential count [facility] Patient Education [facility] Work Phone: Patient referral [facility] Work Phone: Platelets [#/volume] in Blood [facility] Platelets [#/volume] in Blood [facility] Potassium [Moles/vol ume] in Serum or Plasma [facility] Potassium measurement [facility] Red blood cell count [facility] Red blood cell count [facility] Red cell distributio n width determination [facility] Red cell distributio n width determination [facility] Serum chloride measurement [facility] Sodium [Moles/volume ] in Serum or Plasma [facility] Sodium measurement [facility] Total protein measurement [facility] Urea nitrogen [Mass/volume] in Serum or Plasma [facility] Urea nitrogen [Mass/volume] in Serum or Plasma [facility] Vitamin B12 measurement [facility] Work Phone: Vitamin B12 measurement [facility] Immunizations Immunization Date Immunization Notes Care Provider [facility] 06-14-2024 Seasonal trivalent influenza vaccine, adjuvanted, preservative free Dr. Addi Mario MD Work Phone: [facility] 12-13-2023 Covid (Spikevax) Dr. Audrey Mario Work Phone: [facility] 07-31-2023 Covid (Spikevax) Dr. Audrey Mario Work Phone: [facility] 07-31-2023 Pneumococcal Vaccine PCV20 (Prevnar 20) Dr. Addi Mario Work Phone: [facility] 06-26-2023 influenza, injectabl e, quadrivalent, preservative free Dr. Addi Mario Work Phone: [facility] 06-26-2023 influenza virus vaccine, unspecified formulation Shawn Shea MD Work Phone: [facility] 05-25-2022 influenza virus vaccine, unspecified formulation Shawn Shea MD Work Phone: [facility] 07-26-2021 Covid (Moderna) Dr. Lacho Mario Work Phone: [facility] 06-23-[address] Addi Mario Work Phone: [facility] 11-26-2020 Covid (Moderna) Dr. Lacho Mario Work Phone: [facility] 10-24-2020 Covid (Moderna) Dr. Lacho Mario Work Phone: [facility] 06-06-2020 tetanus toxoid, redu korin diphtheria toxoid, and acellular pertussis vaccine, adsorbed Dr. Addi Mario Work Phone: [facility] 05-27-[address] Addi Mario Work Phone: [facility] 07-28-2019 zoster vaccine recombinant Tristan Montana MD Work Phone: [facility] 07-13-2016 influenza, high dose seasonal, preservative-free Tristan Montana MD Work Phone: [facility] 06-10-2015 influenza, high dose seasonal, preservative-free Tristan Montana MD Work Phone: [facility] 09-27-2014 pneumococcal conjuga te vaccine, 13 valent Tristan Montana MD Work Phone: [facility] 07-24-2014 influenza, seasonal, injectable Tristan Montana MD Work Phone: [facility] 06-13-2013 influenza virus vaccine, unspecified formulation Tristan Montana MD Work Phone: [facility] 06-13-2012 influenza virus vaccine, unspecified formulation Tristan Montana MD Work Phone: [facility] 07-21-2010 zoster vaccine, live Maria Guadalupe Montana MD Work Phone: [facility] 08-23-2007 pneumococcal polysaccharide vaccine, 23 valent Tristna Montana MD Work Phone: [facility] 05-24-2007 tetanus and diphther ia toxoids, adsorbed, preservative free, for adult use (2 Lf of tetanus toxoid and 2 Lf of diphtheria toxoid) Tristan Montana MD Work Phone: [facility] 09-19-2001 pneumococcal polysaccharide vaccine, 23 valent Tristan Montana MD Work Phone: [facility] Payers Date Payer Category Payer Self-pay [id number] 2014 Medicare (Managed Care) PRIMETIM E [id number] 2014 Unknown PRIMETIME PRIMET ZACH HMO POS [id number] 2014-Present [phone] [address] [place] [address] O [id number] 2014 Unknown [id number] Unknown [id number] 2.840.1.990666.3.579. 2.462 Unknown [id number] 2.840.1.892174.3.579. 2.462 Unknown [id number] 2.840.1.489623.3.579. 2.462 Unknown [id number] 2.16840.1.235572.3.579. 2.462 Unknown [id number] 2.16840.1.971423.3.579. 2.462 Unknown [id number] 2.840.1.786529.3.579. 2.462 Unknown [id number] 2.16.840.1.754463.3.579. 2.462 Unknown [id number] 2.16.840.1.136242.3.579. 2.462 Unknown [id number] 2.16.840.1.781642.3.579. 2.462 Unknown [id number] 2.16.840.1.598398.3.579. 2.462 Unknown [id number] 2.16.840.1.382702.3.579. 2.462 Unknown [id number] 2.16.840.1.482147.3.579. 2.462 Unknown [id number] 2.16840.1.657333.3.579. 2.462 Unknown [id number] 2.16840.1.218246.3.579. 2.462 Unknown [id number] 2.840.1.542254.3.579. 2.462 Unknown [id number] 2.16840.1.420842.3.579. 2.462 Unknown [id number] 2.840.1.171227.3.579. 2.462 Unknown [id number] 2.16840.1.466365.3.579. 2.462 Unknown [id number] 2.16840.1.718953.3.579. 2.462 Unknown [id number] 2.16.840.1.439929.3.579. 2.462 Unknown [id number] 2.16.840.1.671567.3.579. 2.462 Unknown [id number] 2.16.840.1.904457.3.579. 2.462 Unknown [id number] 2.16.840.1.266161.3.579. 2.462 Unknown [id number] 2.16.840.1.555109.3.579. 2.462 Unknown [id number] 2.16840.1.457176.3.579. 2.462 Unknown [id number] 2.16.840.1.151115.3.579. 2.462 Unknown [id number] 2.16.840.1.952503.3.579. 2.462 Unknown [id number] 2.16.840.1.079547.3.579. 2.462 Unknown [id number] 2.840.1.106857.3.579. 2.462 Unknown [id number] 2.16.840.1.999399.3.579. 2.462 Social History Date Type Detail Facility Start: 12-03-2021 End: 12-27-2023 Tobacco smoking status TNIS Unknown if ever smoked [facility] Start: 02-12-2021 None [facility] Start: 06-11-2020 Spouse/ Signif icant Other [facility] Start: 02-12-2021 Non-smoker [facility] Start: 1935 Sex Assigned At Male W [facility] Start: 11-02-2016 End: 03-17-2025 Tobacco smoking status NHIS Never smoked tobacco [facility] Work Phone: Start: 11-02-2016 Tobacco use and exposure Smokeless tobacco non-user [facility] Work Phone: Start: 11-22-2016 End: 01-14-2025 Alcohol intake Current drinker of alcohol (finding) [facility] Start: 11-02-2016 Alcohol Comment rare [place] [facility] Start: 1935 Sex Assigned At Not on file [facility] Start: 06-01-2023 End: 05-07-2024 History of Social function [facility] Start: 06-01-2023 End: 05-07-2024 Tobacco use panel [facility] National Score (1-100), lower number is lower risk 67 [facility] Start: 11-29-2024 End: 01-07-2025 Sex Male (finding) [facility] Medical Equipment Procedure Code Equipment [...] Assessment Result Facility 01-01-2024 Functional status Ambulates [facility] Work Phone: 12-27-2023 Functional status Chair [facility] Work Phone: 12-08-2023 Functional status Ambulates [facility] [facility]: 04-22-2015 Are you deaf, or do you have serious difficulty hearing No 04/22/2015 11:41 AM EDT Jason Grossman LPN No [facility] 04-22-2015 Are you blind, or do you have serious difficulty seeing, even when wearing glasses No 04/22/2015 11:41 AM EDT Jason Grossman LPN No [facility] 04-22-2015 Do you have serious difficulty walking or climbing stairs No 04/22/2015 11:41 AM EDT Jason Grossman LPN No [facility] 04-22-2015 Do you have difficul ty dressing or bathing No 04/22/2015 11:41 AM EDT Jason Grossman LPN No [facility] 04-22-2015 Because of a physica l, mental, or emotional condition, do you have difficulty doing errands alone such as visiting a physician's office or shopping No 04/22/2015 11:41 AM EDT Jason Grossman LPN No [facility] Mental Status Date Assessment Result Facility 01-01-2024 Cognitive function Voice/Name;Touch/[facility] Work Phone: 12-26-2023 [facility] function [facility] Work Phone: 12-22-2023 Cognitive function Appropriate;Cooperativ e [facility] Work Phone: 12-21-2023 Cognitive function Voice/Name [facility] Work Phone: 12-08-2023 Cognitive function Voice/Name [facility] Work Phone: 12-02-2023 Cognitive function Level Of Cons ciousness Awake;Alert;Appropriate;Fol lows [facility] Work Phone: 03-12-2023 Cognitive function Level Of Cons ciousness Awake;Alert;Appropriate;Fol lows [facility] Work Phone: 04-22-2015 Because of a physica l, mental, or emotional condition, do you have serious difficulty concentrating, remembering, or making decisions No 04/22/2015 11:41 AM Jason Tyson LPN No [facility] Clinical Notes 12-23-2015 to 03-17-2025 Note Date & Type Note Facility 03-17-2025 Discharge summary [facility] 03-10-2025 Discharge summary [facility] 03-10-2025 Radiology Diagnostic study note [facility] Imaging Services [address] [place] [address] Foot min 3 Views MR#: [id number] Acct: [id number] Name: JESSEE RUST Rep #: [id number] : 1935 M 89 From: Melody Younger MD PCP: Dr. Addi Mario MD Status: P RE ER Study:Foot min 3 Views Date of Exam: Exam# [id number] Ordering Dr: Marisol Meza PROCEDURE: FOOT MIN [...] is concern for ankle pathology. Reading Location: [id number] CC: Dr. Addi Mario MD; BASSEM Soria ~ Insulating Machine Operator: Signed [facility] 03-10-2025 Discharge summary Note Date/Time March 10, 2025 5:19pm [facility] Medical Records Department [address] [place] [address] Emergency Department Summary 03/10/25 MR#: [id number] Acct: [id number] Name: JESSEE RUST Rep #:[id number] : [...] on 1 foot while moving the oppositefoot kwui-nyf-lxdnx. He is not of the exact mechanism of injury but reports that after performing these exercises he started to have pain in the right foot. He is able to ambulate but it is painful. He denies any other injury. 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 [...] ea 04/30/23 Unkn own Rx Nebulizer System) kyuaidpy-xkg-uyfah acid 0.4 1 tab PO DAILY supplement [...] hydrocortisone 2.5 % topical cream 1 applic HI BID-QID PRN 01/04/24 Unknown Rx with perineal [...] 99 97 Oxygen Delivery Method Room Air [facility] <BASSEM Soria - Last Filed: 03/10/25 16:54> [facility] Narrative Medical decision making narrative: Patient presenting [...] is concern for ankle pathology. Reading Location: [facility] <Dr. Rolan Peña, DO - Last Filed: 03/10/25 17:19> MDM Radiography Diagnostic Testing: Clinical Impression(s) from Imaging Studies Foot X-Ray 03/10/25 16:25 IMPRESSION: Mild diffuse osteopenia. Scattered moderate degenerative changes predominantly about the intertarsal joint spaces. No acute fracture or dislocations. No radiographic foreign body. No acute softtissue abnormalities. Minimal diffuse soft tissue swelling. Consider dedicated ankle radiograph if there is concern for ankle pathology. Reading Location: [facility] Treatment and Re-Evaluation Narrative: Attending note: [...] % cream with perineal applicator 1 applic HI BID-QID PRN (Reason: hemorrhoids) Qty: 30 1RF [...] as needed for your pain. Print Language: Arabic Disposition Disposition: Home, Self Care What to do if you have Problems For any increased pain, shortness of breath, bleeding, nausea or vomiting, chestpain, or any unexpected problems, contact your Primary Care Provider. Call [facility] ([phone]) or report to the closest Emergency Room. Call 911 if necessary. 03/10/25 1654 <Electronically signed by Marisol LUEVANO> Cosigner Signature (if applicable): 03/10/25 9395 <Electronically signed by Rolan Rubio> CC: Dr. Addi Mario MD ~ Signed [facility] Work Phone: [phone] Instructions* Patient Instructions* Shawn Shea MD - 01/14/2025 3:00 PM EDT You will be dilated on your next visit. This will likely make your vision blurry for several hours, and you should strongly consider bringing a concrete mixer truck driver. documented in this encounterOhiohealth [facility] Medical Center04-28-2025 History of Present illness Narrative* Shawn Shea MD - 01/14/2025 2:30 PM EDT New from [place] Tmax: <22; Pachy: -, - Lasers and [...] of its relevant components. documented in this encounterOhiohealth Grant Medical Center04-28-2025 NoteHNO ID: [id number] Author: SHAWN SHEA MD Service: ? Author [...] and agree with all of its relevant components.[facility]04-17-2025 Procedure note [facility] Speech Pathology [address] [place] [address] Modified Barium Swallow Study MR#: [id number] Acct: [id number] Name: JESSEE RUST Rep #:[id number] : 1935 89 From: Jodee Samayoa [facility] Modified Barium Swallow Patient Information Study Date: [...] cup: Result: 1= does not enter airway [place] Thick Liquid via large single sip: cup: [...] Status Active ST Patient: Active Contact Information [facility] Speech Therapy:: Jodee Miller M.A. [employer]? Speech-Language Pathologist?? [facility] [address] [place] [address]? [email or web address]?? [phone] 01/03/25 08Xiang Smart [employer]> Date/Time Jodee Miller M.A. [employer] Co-Signature Required for all Medicare patients Date/Time Co-Signature CC: ~ [facility]03-14-2025 Evaluation note* Diagnosis Onset Date Resolution Status Admit Date Exposure to COVID-19 virus acute November 30, 2024 1:36pm Sore throat acute November 30 1:36pm Asthma chronic December 14 1:29pm CHF (congestive heart failure) chron December 14, 2024 1:29pm Asthma chronic February 14, 2025 2:05pm Atrial fibrillation chronic January 182024 2:05pm Debility chronic February 14, 2025 2:05pm Essential hypertension chronic Ma 2024 2:05pm Hyperlipidemia chronic February 14, 2025 2:05pm Anemia chronic February 19, 2025 2:15pm Aortic stenosis chronic February 19, 2025 2:15pm Atherosclerosis 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 chronic February 19, 2025 2 :15pm CHF (congestive heart failure) chron ic February 19, 2025 2:15pm Hyperlipidemia chronic February 19, 2025 2:15pm Paroxysmal atrial fibrillation chron February 19, 2025 2:15pm Sinus bradycardia chronic February 2:15pm [facility] Work Phone: [phone] 327-452503-11-2025 Telephone encounter Note* Telephone Encounter - Alexis [...] alternative measures Alexis Green MD Ophthalmology Resident [facility] Work Phone: [phone] Miscellaneous Notes* Telephone Encounter - Alexis Green [...] Green MD Ophthalmology Resident documented in this encounterOhiohealth Grant Medical Center03-10-2025 Instructions* Patient Instructions* Shawn Shea MD - 11/26/2024 2:03 PM EDT You will be dilated on your next visit. This will likely make your vision blurry for several hours, and you should strongly consider bringing a concrete mixer truck driver. Medication Eye # times daily Rocklatan (white cap) BOTH 1x daily (bedtime) Simbrinza (light green cap) BOTH 2x daily *please remember to wait at least 3 minutes between different drops in the same eye. 11/26/24 documented in this encounterOhiohealth Grant Medical Center03-10-2025 NoteDate of Procedure 11/26/2024. [employer] Bpm Developer Information Feed Elevator Worker: JOSÉ MANUEL. Start time: 1:44 PM. Stop time: 1:50 PM. NFL Interpretation Right Eye Diffuse loss. Left Eye Diffuse loss. Interval Change Right Eye Stable. Left Eye Worse.[id number] NoteHNO ID: [id number] Author: SHAWN SHEA MD Service: ? Author [...] and agree with all of its relevant components.[facility]03-10-2025 History of Present illness Narrative* Shawn Shea MD - 11/26/2024 1:58 PM EDT New from [place] Tmax: <22; Pachy: -, - Lasers and [...] of its relevant components. 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 February 19, 2025 2 :15pm CHF (congestive heart failure) [facility] February 19, 2025 2:15pm Hyperlipidemia chronic February 19, 2025 2:15pm Paroxysmal atrial fibrillation [facility] February 19, 2025 2:15pm Sinus bradycardia chronic February 2:15pm [facility] Work Phone: 1(897) 540-811302-04-2025 Evaluation note* Diagnosis Onset Date Resolution Status Admit Date Anemia chronic October 23, 2024 1:53pm Aortic stenosis chronic October 23, 2024 1:53pm Atherosclerosis 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 October 23 1:53pm CHF (congestive heart failure) [facility] October 23, 2024 1:53pm Hyperlipidemia chronic October 232024 1:53pm Paroxysmal atrial fibrillation [facility] October 23, 2024 1:53pm Sinus bradycardia chronic [...] December 14 1:29pm CHF (congestive heart failure) [facility] December 14, 2024 1:29pm [facility] Work Phone: 1([phone]) 845-996502-04-2025 Evaluation note* Diagnosis Onset Date Resolution Status Admit Date Anemia chronic October 23, 2024 1:53pm Aortic stenosis chronic October 23, 2024 1:53pm Atherosclerosis 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 October 23 1:53pm [...] 2:05pm Hyperlipidemia chronic February 14, 2025 2:05pm [facility] Work Phone: 1(167) 950-362302-04-2025 Evaluation note* Diagnosis Onset Date Resolution Status Admit Date Anemia chronic October 23, 2024 1:53pm Aortic stenosis chronic October 23, 2024 1:53pm 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 spoke to pt Shawn Shea MD You; Farhat Herrera MD16 minutes ago (2:52 PM) Restart alphagan three times a day both eyes [facility] Work Phone: 1(376) 555-467301-15-2025 Miscellaneous Notes* Telephone Encounter - Leesa Stratton [...] what should he do at this point? [phone] he was offered an appt on 10/08 at [place] but he declined Shawn Shea MD filed at 07/30/2024 2:11 PM Status: Signed New from [place] Tmax: <22; Pachy: -, - Lasers and [...] agree withall of it [place] [address]-15-2025 Telephone encounter Note * Telephone Encounter - Leesa Stratton - 10/03/2024 2:19 PM EST patient reporting that he has not been taking his alphagan since 08/12, he was on the med for 2 days and then developed OU conjunctivitis, he took medicine for that but never went back on the alphagan what should he do at this point? [phone] he was offered an appt on 10/08 at [place] but he declined Shawn Shea MD filed at 07/30/2024 2:11 PM Status: Signed New from [place] Tmax: <22; Pachy: -, - Lasers and [...] stated above and agree withall of it [facility]11-26-2024 NoteHNO ID: [id number] Author: PRIYA SALEH OD Service: ? Author Type: CORSET FITTER Type: Progress Notes Filed: 08/14/2024 10:07 Note [...] Monse Saleh, CHRISTY August 14, 2024 10:03 [facility]11-26-2024 History of Present illness Narrative* Priya [...] 14, 2024 10:03 AM documented in this encounterOhiohealth Grant Medical Center11-26-2024 Instructions* Patient Instructions* Priya Saleh, OD - 08/14/2024 9:22 AM EST Use PF Systane 5 minutes before each dose of Brimonidine Use Systane, Refresh or Blink gel nightly before bed in both eyes Use warm compresses daily documented in this encounterOhiohealth Grant Medical Center11-21-2024 Evaluation note* Diagnosis Onset Date Resolution Status [...] 2024 1:53pm Atherosclerosis 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 chronic October 23 1:53pm CHF (congestive heart failure) chron ic October 23, 2024 1:53pm Hyperlipidemia chronic October 232024 1:53pm Paroxysmal atrial fibrillation chron October 23, 2024 1:53pm Sinus bradycardia chronic 2024 1:53pm Swallowing disorder acute Febru saamn 2024 3:01pm Anemia chronic November 15, 2024 3:01pm Asthma chronic November 15, 2024 3:01pm Essential hypertension chronic Fe bruary 2024 3:01pm Hyperlipidemia chronic October 212024 3:01pm [facility] Work Phone: 1([phone]) 373-681211-11-2024 Instructions* Patient Instructions* Shawn Shea MD - 07/30/2024 2:10 PM EST You will be dilated on your next visit. This will likely make your vision blurry for several hours, and you should strongly consider bringing a concrete mixer truck driver. documented in this encounterOhiohealth Grant Medical Center11-11-2024 NoteDate of Procedure 07/30/2024. Reliability Right Eye Poor. Left Eye Poor. Interpretation Right Eye Arcuate defect, Altitudinal defect, Central defect. Left Eye Arcuate defect, Altitudinal defect, Central defect.[id number] NoteHNO ID: [id number] Author: SHAWN SHEA MD Service: ? Author Type: Physician Type: Progress Notes Filed: 07/30/2024 14:11 Note Text: New from [place] Tmax: <22; Pachy: -, - Lasers and [...] and agree with all of its relevant components.[facility]11-11-2024 History of Present illness Narrative* Shawn Shea MD - 07/30/2024 2:05 PM EST New from [place] Tmax: <22; Pachy: -, - Lasers and [...] of its relevant components. documented in this encounterOhiohealth Grant Medical Center08-27-2024 Telephone encounter Note * Telephone Encounter - [...] # band K both eyes - stable [facility]08-27-2024 Miscellaneous Notes* Telephone Encounter - Mikaela Tillman [...] 03/12/2024 2:50 PM Status: Signed New from [place] Tmax: <22; Pachy: -, - Lasers and [...] both eyes - stable documented in this encounterOhiohealth Grant Medical Center06-26-2024 Telephone encounter Note * Telephone Encounter - Lucina Friedman LSW - 03/14/2024 1:38 PM EDT abatement worker received a consult order from Dr. Shea who is referring the patient to the [facility] for low vision services. abatement worker called the patient and discussed the referral and sight center services. Patient states that the sight center is too far from [place], [place] and has requested SW to send him vision resources. abatement worker and patient discussed use of I-Phone and I-Pad vision accessibility for improved reading and using AI Kamala for additional assistance with reading information. Patient is very comfortable using assistive technology and prefers to the methods he is currently using for visual adaptations. Discussed at length [employer] videos for [email or web address] learning and other informationfrom various websites that [...] it and get back to this SW. abatement worker to email vision resources. Patient will reach out to as needed. Contact information provided. [facility]06-26-[facility] Miscellaneous Notes* Telephone Encounter - Lucina Friedman LSW - 03/14/2024 1:38 PM EDT abatement worker received a consult order from Dr. Shea who is referring the patient to the [facility] for low vision services. abatement worker called the patient and discussed the referral and sight center services. Patient states that the sight center is too far from [place] and has requested SW to send him vision resources. abatement worker and patient discussed use of I-Phone and I-Pad vision accessibility for improved reading and using AI Kamala for additional assistance with reading information. Patient is very comfortable using assistive technology and prefers to the methods he is currently using for visual adaptations. Discussed at length [employer] YouTube videos for [email or web address] learning and other informationfrom various websites that [...] it and get back to this SW. abatement worker to email vision resources. Patient will reach out to as needed. Contact information provided. documented in this encounterOhiohealth Grant Medical Center06-24-2024 Note* Addendum Note - Shawn Shea MD - 03/12/2024 2:52 PM EDTAddended by: SHAWN SHEA on: 03/12/2024 02:52 PM Modules accepted: Orders [facility]06-24-2024 Miscellaneous Notes* Addendum Note - Shawn Shea MD - 03/12/2024 2:52 PM EDTAddended by: SHAWN SHEA on: 03/12/2024 02:52 PM Modules accepted: Orders documented in this encounterOhiohealth Grant Medical Center06-24-2024 NoteDate of Procedure 03/12/2024. Oracle Bpm Developer Information Feed Elevator Worker: Start time: 2:37 PM. Stop time: 2:37 PM. NFL Interpretation Right Eye Diffuse loss. Left Eye Diffuse loss. Interval Change Right Eye Stable. Left Eye Stable.[id number] History of Present illness Narrative* Shawn Shea [...] of its relevant components. documented in this encounterOhiohealth Grant Medical Center06-24-2024 NoteHNO ID: [id number] Author: SHAWN SHEA MD Service: ? Author [...] and agree with all of its relevant components.[facility]06-22-2024 Telephone encounter Note* Telephone Encounter - Alexis Green MD - 03/10/2024 11:21 AM EDT Received page that patient had called. Spoke to them on the phone at 11:24 AM. Patient has a history of POAG follows with Dr. Shea Patient requesting med refills sent to new [facility] [address]. Refills sent Alexis Green MD Ophthalmology Resident [facility]06-22-2024 Miscellaneous Notes* Telephone Encounter - Alexis Green MD - 03/10/2024 11:21 AM EDT Received page that patient had called. Spoke to them on the phone at 11:24 AM. Patient has a history of POAG follows with Dr. Shea Patient requesting med refills sent to new [facility] [address]. Refills sent Alexis Green MD Ophthalmology Resident documented in this encounterOhiohealth Grant Medical Center04-25-2024 Miscellaneous Notes* Telephone Encounter - Malu Elias COA - 01/12/2024 3:37 PM EDT Spoke with Marta from [place] and advised her the drops are not duplicates and the patient does need to use both drops. * Telephone Encounter - Tania Beckett - 01/02/2024 12:26 PM EDT Marta from [facility] calling to let Dr. Shea that when she reconciled the patient's eye drops the computer showed them has duplicates. They are the brimonidine 0.01% drop and ROCKLATAN 0.02-0.005% ophthalmic solution. She believes they are the same. She can be reached at [phone]. documented in this encounterOhiohealth Grant Medical Center04-25-2024 Telephone encounter Note * Telephone Encounter - Malu Elias COA - 01/12/2024 3:37 PM EDT Spoke with Marta from [place] and advised her the drops are not duplicates and the patient does need to use both drops. [facility]04-15-2024 Telephone encounter Note* Telephone Encounter - Tania Beckett - 01/02/2024 12:26 PM EDT Marta from [facility] calling to let Dr. Shea that when she reconciled the patient's eye drops the computer showed them has duplicates. They are the brimonidine 0.01% drop and ROCKLATAN 0.02-0.005% ophthalmic solution. She believes they are the same. She can be reached at [phone]. [facility]04-12-2024 Discharge summary Author Arsenio Mcgregor [facility] December 30, 2023 1:55pm Note Date/Time December 30, 2023 1:4 6pm [facility] Medical Records Department [address] [place] [address] Discharge Summary 12/30/23 1345 MR#: [id number] Acct: [id number] Name: JESSEE RUST Rep #:[id number] : 1935 88 From: Arsenio Mcgregor MD PCP: Dr. Addi Mario MD Status:A DM IN Location: [place] [address] Providers Date of Admission: 12/08/23 Primary Care [...] Code(s): I25.10 - Atherosclerotic heart disease of deering coronary artery without angina pectoris Plan 86 [...] mg tablet,delayed release 81 mg PO DAILY@[facility] 12/06/16 travoprost 0.004 % eye drops 1 [...] mg PO QODAY Supplement #90 tabs 11/23/23 tmhtarkd-yyt-npvob acid 0.4 mg-lycopene 300 mcg-lutein 250 mcg [...] removal of stent Discharge home with 01/01/2024, [facility] PT/OT/RN. Physical Exam Const alert General [...] % (Auto) 44.5 L, Lymph % (Auto)35.0, [place] % (Auto) 13.6 H, Eos % (Auto) [...] pain Additional Instructions: Discharge home with 01/01/2024, [facility] PT/OT/RN. Please Follow Up With: Darien Lee MD When: As scheduled. Meaningful Use Info Meaningful Use Diagnoses (Choose all that apply): None applicable Discharge Plan Admission Admit Date/Time: 12/08/23 13:05 Primary Reason for Your Visit: Debility. Attending Provider: Arsenio Mcgregor Chi Primary Care Provider: Addi Mario Instructions Additional Instructions / Restrictions: Discharge home with 01/01/2024, [facility] PT/OT/RN. Discharge Orders/Prescriptions Prescriptions: New furosemide [...] can be placed): Home Health Service 12/30/23 2525 <Electronically signed by Arsenio Mcgregor MD> Cosigner Signature (if applicable): CC: Dr. Addi Mario MD; Dr. Arsenio cMgregor MD~ Signed [facility] Work Phone: 1(408) 592-976104-03-2024 Discharge summary Author Darien Lee [facility] December 21, 2023 3:08pm Note Date/Time December 21, 2023 3:08 pm [facility] Medical Records Department [address] [place] [address] Instructions for Home/Discharge Instructions 12/21/23 1508 MR#: [id number] Acct: [id number] Name: JESSEE RUST Rep #:[id number] : 1935 88 From: Darien Lee MD PCP: Dr. Addi Mario MD Status:R [facility] Discharge Instructions Diet Discharge Diet: No restrictions Activity Discharge Activity: Return to Normal Activity and May Not Drive (while taking narcotic pain medications.) Dressing / Incision Call your doctor if you observe: Fever of 101 or Higher Follow Up Care Please Follow Up With: Darien Lee MD When: Call [phone] for an appointment Test Results: Test results [...] CC: Dr. Addi Mario MD ~ Signed [facility] [facility] Work Phone: 1(370) 459-586804-03-2024 History and physical note Author [facility] December 21, 2023 3:08pm Note Date/Time December 21, 2023 3:08 pm [facility] Medical Records Department [address] [place] [address] History & Physical Exam 12/21/23 1508 MR#: [id number] Acct: [id number] Name: JESSEE RUST Rep #:[id number] : 1935 88 From: Darien Lee MD PCP: Dr. Adid Mario MD Status:R [facility] Location: [facility] [place] HPI - General General Date of Service: 12/21/23 Chief Complaint: Right kidney stone HPI Narrative JESSEE RUST, is a 88 M who presents for laser of her right kidney stone and removal of stent [facility] Medical History Advanced directives, counseling/discussion Anemia Anginal equivalent Aortic stenosis Asthma Atherosclerosis 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 Atrial fibrillation BPH [...] #90 tabs 11/23/23 [Rx Last Taken 12/01/23] wduzmuvu-nwi-dtfpu acid 0.4 mg-lycopene 300 mcg-lutein 250 mcg tablet (Centrum Silver) 1 tab PO DAILY supplement 12/02/23 [History Last Taken 12/01/23] netarsudil 0.02 %-latanoprost 0.005 % eye drops (Prestonlatan) 1 drp ophthalmic (eye) QHS Eye drops [...] (Cipro) 500 mg PO BID #10 tabs 04/03/24 [Rx Last Taken Unknown] Allergy/AdvReac Type Severity [...] Mario MD; Dr. Darien Lee MD~ Signed [facility] Work Phone: 1(156) 319-856904-03-2024 Procedure [facility] 12-09-2023 Progress note Author Salome Childers [facility] December 09, 2023 12:05pm Note Date/Time December 09, 2023 11: 47am [facility] Medical Records Department [address] [place] [address] Progress Note - Pharmacy 12/09/23 1135 MR#: [id number] Acct: [id number] Name: EDGARJESSEE Buckner CLAIR Rep #:[id number] : 1935 88 From: Salome Childres PCP: Dr. Addi Mario MD Status:A DM IN Location: TCU [facility]1 TCU RX Drug Regimen Review [...] 10 Mg Tablet PO 10 mg DAILY [facility] Administration Famotidine 20 mg 12/09/23 10:00 12/09/23 09:52 Famotidine 20 Mg Tablet PO 20 mg DAILY [facility] Administration Ferrous Sulfate 325 mg 12/10/23 10:00 Ferrous Sulfate 325 Mg Tablet PO QODAY [facility] Finasteride 5 mg 12/09/23 10:00 12/09/23 09:53 Finasteride 5 Mg Tablet PO 5 mg DAILY [facility] Administration Furosemide 40 mg 12/09/23 10:00 12/09/23 09:51 Furosemide 40 Mg Tablet PO 40 mg DAILY [facility] Administration Protocol Guaifenesin 1,200 mg 12/08/23 22:00 12/09/23 09:52 Guaifenesin 1,200 Mg Tablet PO 1,200 mg 1000,2200 [facility] Administration Loratadine 10 mg 12/08/23 13:45 Loratadine 10 Mg Tablet PO DAILY PRN allergy Magnesium Chloride 128 mg 12/08/23 22:00 12/08/23 22:26 Magnesium Chloride 64 Mg Delay Rel.Tablet PO 128 mg QHS JOSE Administration Magnesium Citrate 300 ml 12/08/23 18:00 12/08/23 18:11 Magnesium Citrate 300 Ml PO 300 ml X1 [facility] Administration Multivitamins/Minerals 1 tablet 12/09/23 08:00 12/09/23 09:48 Multivitamins,Ther W-Minerals Tablet PO 1 tablet DAILYCM [facility] Administration Nitroglycerin 0.4 mg 12/08/23 14:04 Nitroglycerin (Inpatient Use) 0.4 Mg Tab.Subl SL Q5M PRN CARDIAC/CHEST PAIN Potassium Chloride 10 meq 12/09/23 10:00 12/09/23 09:51 Potassium Chloride Oral Tablet 10 Meq PO 10 meq DAILY [facility] Administration Fluticasone/Salmeterol 1 puff 12/08/23 22:00 12/09/23 [...] Senna/Docusate 1 tab PO BID, Dulcolax 10mg HI Daily PRN, Magnesium Citrate 300mL PO x1. [...] a lipid panel done since 07/2022 per [employer] review.If clinically indicated, please consider obtaining a lipid panel if clinically indicated, thank you. Date Date of Note:: 12/09/23 12/09/23 1205 <Electronically signed by Salome Childers> Salome Childers Cosigner Signature (if applicable): CC: ~ [facility]igned [facility] Work Phone: 1([phone]) 956-187803-21-2024 History and physical note Author Arsenio Mcgregor [facility] December 08, 2023 6:00pm Note Date/Time December 08, 2023 5:3 9pm [facility] Medical Records Department [address] [place] [address] [place] [address] History & Physical Exam 12/08/23 1730 MR#: [id number] Acct: [id number] Name: JESSEE RUST Rep #:[id number] : 1935 88 From: Arsenio Mcgregor MD PCP: Dr. Addi Mario MD Status:A DM IN Location: U TCU17-1 HPI - General General Date of Admission: 12/08/23 Date of Service: 12/08/23 Chief Complaint: Here for rehabilitation. HPI Narrative 12/02/2023 JESSEE RUST, is a 88 Male who presents to [facility] ED with flank pain. Back pain, [...] UTI. Rocephin/Zithromax for pneumonia. 12/02/2023 Admit to [facility]. Hold Eliquis, continue Heparin drip, consult [...] to discharge home with . [facility] Medical History (Updated 12/08/23 @ 17:[address] Arsenio Mcgregor MD) Advanced directives, counseling/discussion Anemia Anginal equivalent Aortic stenosis Asthma Atherosclerosis 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 Atrial fibrillation BPH [...] #90 tabs 11/23/23 [Rx Last Taken 12/01/23] zdpfhkwr-vwo-zxpng acid 0.4 mg-lycopene 300 mcg-lutein 250 mcg [...] Mario MD; Dr. Arsenio Mcgregor MD~ Signed [facility] Work Phone: 1([phone]) 473-565803-20-2024 Progress note Author Klaudia [facility] December 07, 2023 4:28pm Note Date/Time December 07, 2023 12: 40pm [facility] Medical Records Department [address] [place] [address] Progress Note 12/07/23 1238 MR#: [id number] Acct: [id number] Name: JESSEE RUST Rep #:[id number] : 1935 88 From: Klaudia Gonzales MD PCP: Dr. Addi Mario MD Status:A DM IN Location: [place] [address] Subjective Subjective Patient seen and examined. He [...] (Auto) 60.6, Lymph % (Auto) 18.8 L, Florence % (Auto) 17.2 H, Eos % (Auto) [...] Right Blood Culture - Final GNR lactose framing carpenter 12/02/23 13:20 Blood Culture (Wb) - Anticubital [...] medically stable. Charges/Coding Visit Charges Inpatient E&M: 32793 Rust Hosp L2 12/07/23 2598 <Electronically signed by Klaudia Gonzales MD> Klaudia Gonzales MD Cosigner Signature (if applicable): CC: ~ Signed [facility] Work Phone: [phone]) 683-488703-20-2024 Procedure [facility] 12-07-2023 Progress note Author Vanessa Simmons [facility] December 07, 2023 11:50am Note Date/Time December 07, 2023 11: 50am [facility] Medical Records Department [address] [place] [address] [place] [address] Progress Note 12/07/23 1150 MR#: [id number] Acct: [id number] Name: JESSEE RUST Rep #:[id number] : 1935 88 From: Vanessa Simmons MD PCP: Dr. Addi Mario MD Status:A DM IN Location: [place] [address] Progress Note Notified that the patient had a run of nonsustained ventricular tachycardia. Patient asymptomatic. Check electrolytes and magnesium. Increase carvedilol to 6.25 mg twice daily. 12/07/23 1150 <Electronically signed by Vanessa Simmons MD> Vanessa Simmons MD Cosigner Signature (if applicable): CC: ~ Signed [facility] Work Phone: [phone]) 955-302603-19-2024 Consult note Author Darien Lee [facility] December 06, 2023 9:22pm Note Date/Time December 06, 2023 9:2 0pm [facility] Medical Records Department [address] [place] [address] Consultation - Urology 12/06/232117 MR#: [id number] Acct: [id number] Name: JESSEE RUST Rep #:[id number] : 1935 88 From: Darien Lee MD PCP: Dr. Addi Mario MD Status:A DM IN Location: [place] [address] Assessment & Plan Assessment/Plan (1) Ureteral calculi: [...] obstruction. pt. is o/w stable. [facility] Medical History Advanced directives, counseling/discussion Anemia Anginal equivalent Aortic stenosis Asthma Atherosclerosis 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 Atrial fibrillation BPH [...] #90 tabs 11/23/23 [Rx Last Taken 12/01/23] azdyrbqb-xof-nnoan acid 0.4 mg-lycopene 300 mcg-lutein 250 mcg [...] (Auto) 68.0, Lymph % (Auto) 16.5 L, Florence % (Auto) 12.5 H, Eos % (Auto) [...] Darien Lee MD;Dr. Miguelito [place] MD~ Signed [facility] Work Phone: [phone]) 792-363503-19-2024 Progress note Author Sally Zelaya [facility] December 06, 2023 8:07pm Note Date/Time December 06, 2023 8:0 7pm [facility] Medical Records Department [address] [place] [address] Progress Note - Hospitalist 12/06/232005 MR#: [id number] Acct: [id number] Name: JESSEE RUST Rep #:[id number] : 1935 88 From: Sally Zelaya MD PCP: Dr. Addi Mario MD Status:A DM IN Location: [place] [address] A/P w/ left lower [...] any concerns arise low threshold to involve security sales consultant. 12/06/232006 <Electronically signed by Sally Zelaya MD> Cosigner Signature (if applicable): CC: ~ Signed [facility] Work Phone: 1(309) 350-925903-19-2024 Progress note Author Klaudia Janet [facility] December 06, 2023 3:37pm Note Date/Time December 06, 2023 3:3 7pm [facility] Medical Records Department [address] [place] [address] Progress Note 12/06/23 1529 MR#: [id number] Acct: [id number] Name: JESSEE RUST Rep #:[id number] : 1935 88 From: Klaudia Gonzales MD PCP: Dr. Addi Mario MD Status:A DM IN Location: [place] [address] Subjective Subjective Patient seen and examined. He [...] (Auto) 68.0, Lymph % (Auto) 16.5 L, Florence % (Auto) 12.5 H, Eos % (Auto) [...] Right Blood Culture - Final GNR lactose framing carpenter 12/02/23 13:20 Blood Culture (Wb) - Anticubital [...] medically stable. Charges/Coding Visit Charges Inpatient E&M: 24705 Subs Hosp L2 12/06/23 1537 <Electronically signed by Klaudia Gonzales MD> Klaudia Gonzales MD Cosigner Signature (if applicable): CC: ~ Signed [facility] Work Phone: [phone]) 220-687903-19-2024 Progress note Author Vanessa Simmons [facility] December 06, 2023 12:18pm Note Date/Time December 06, 2023 12: 18pm [facility] Medical Records Department [address] [place] [address] Progress Note - Cardiology 12/06/23 1213 MR#: [id number] Acct: [id number] Name: JESSEE RUST Rep #:[id number] : 1935 88 From: Vanessa Simmons MD PCP: Dr. Addi Mario MD Status:A DM IN Location: [place] [address] Subjective Subjective Denies any complaints today. Sitting [...] (Auto) 68.0, Lymph % (Auto) 16.5 L, Florence % (Auto) 12.5 H, Eos % (Auto) [...] (Auto) 68.0, Lymph % (Auto) 16.5 L, [place] % (Auto) 12.5 H, Eos % (Auto) [...] Cosigner Signature (if applicable): CC: ~ Signed [facility] Work Phone: 1([phone]) 871-490703-18-2024 Progress note Author Klaudia Gonzales [facility] December 05, 2023 3:53pm Note Date/Time December 05, 2023 1:3 6pm [facility] Medical Records Department [address] [place] [address] Progress Note 12/05/23 1319 MR#: [id number] Acct: [id number] Name: JESSEE RUST Rep #:[id number] : 1935 88 From: Klaudia Gonzales MD PCP: Dr. Addi Mario MD Status:A DM IN Location: [place] [address] Subjective Subjective Patient seen and examined today. [...] 71.3 H, Lymph % (Auto) 15.2 L, Florence % (Auto) 11.6 H, Eos % (Auto) [...] Right Blood Culture - Final GNR lactose framing carpenter 12/02/23 13:20 Blood Culture (Wb) - Anticubital [...] to thrombocytopenia. Charges/Coding Visit Charges Inpatient E&M: 27595 Subs Hosp L2 12/05/23 0633 <Electronically signed by Klaudia Gonzales MD> Klaudia Gonzales MD Cosigner Signature (if applicable): CC: ~ Signed [facility] Work Phone: [phone] Progress note Author Vanessa Simmons [facility] December 05, 2023 10:09am Note Date/Time December 05, 2023 10: 09am [facility] Medical Records Department [address] [facility] [place] [address] Progress Note 12/05/23 1009 MR#: [id number] Acct: [id number] Name: JESSEE RUST Rep #:[id number] : 1935 88 From: Vanessa Simmons MD PCP: Dr. Addi Mario MD Status:A DM IN Location: [place] [address] Progress Note Platelet count stable. Creatinine also stable. Recommend coronary angiography with possible revascularization. Risks benefits and alternatives explained to the patient. He understand these and wishes to proceed. 12/05/23 1009 <Electronically signed by Vanessa Simmons MD> Vanessa Simmons MD Cosigner Signature (if applicable): CC: ~ Signed [facility] Work Phone: [phone] Progress note Author Klaudia [facility] December 04, 2023 1:16pm Note Date/Time December 04, 2023 12: 55pm [facility] Medical Records Department [address] [place] [address] Progress Note 12/04/23 1254 MR#: [id number] Acct: [id number] Name: JESSEE RUST Rep #:[id number] : 1935 88 From: Klaudia Gonzales MD PCP: Dr. Addi Mario MD Status:A DM IN Location: [place] [address] Subjective Subjective Patient seen and examined. He [...] 78.9 H, Lymph % (Auto) 8.8 L, Florence % (Auto) 8.4, Eos % (Auto) 0.1, [...] to thrombocytopenia. Charges/Coding Visit Charges Inpatient E&M: 02004 Subs Hosp L3 12/04/23 1316 <Electronically signed by Klaudia Gonzales MD> Klaudia Gonzales MD Cosigner Signature (if applicable): CC: ~ Signed [facility] Work Phone: [phone]) 263-405703-17-2024 Progress note Author Vanessa Simmons [facility] December 04, 2023 12:28pm Note Date/Time December 04, 2023 12: 28pm [facility] Medical Records Department [address] [place] [address] Progress Note - Cardiology 12/04/23 1226 MR#: [id number] Acct: [id number] Name: JESSEE RUST Rep #:[id number] : 1935 88 From: Vanessa Simmons MD PCP: Dr. Addi Mario MD Status:A DM IN Location: [place] [address] Subjective Subjective Feels better. No complaints. Objective [...] 78.9 H, Lymph % (Auto) 8.8 L, Florence % (Auto) 8.4, Eos % (Auto) 0.1, [...] 78.9 H, Lymph % (Auto) 8.8 L, Florence % (Auto) 8.4, Eos % (Auto) 0.1,Baso [...] 16:56 EDT Reading Location ID and State: [facility] / [place] Tel , Service support , Physical Exam [...] Cosigner Signature (if applicable): CC: ~ Signed [facility] Work Phone: [phone]) 523-260303-16-2024 Progress note Author Klaudia Gonzales [facility] December 03, 2023 4:37pm Note Date/Time December 03, 2023 4:3 7pm [facility] Medical Records Department [address] [place] [address] Progress Note 12/03/23 1623 MR#: [id number] Acct: [id number] Name: JESSEE RUST Rep #:[id number] : 1935 88 From: Klaudia Gonzales MD PCP: Dr. Addi Mario MD Status:A DM IN Location: [place] [address] Subjective Subjective Patient seen and examined. 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 12/02/23 13:30 Blood Culture (Wb) - Anticubital [...] heparin drip Charges/Coding Visit Charges Inpatient E&M: 80725 Subs Hosp L3 12/03/23 1637 <Electronically signed by Klaudia Gonzales MD> Klaudia Gonzales MD Cosigner Signature (if applicable): CC: ~ Signed [facility] Work Phone: [phone] 291-456703-16-2024 Consult note Author Vanessa Simmons [facility] December 03, 2023 11:01am Note Date/Time December 03, 2023 10: 47am [facility] Medical Records Department [address] [place] [address] Consultation - Cardiology 12/03/23 1046 MR#: [id number] Acct: [id number] Name: JESSEE RUST Rep #:[id number] : 1935 88 From: Vanessa Simmons MD PCP: Dr. Addi Mario MD Status:A DM IN Location: [place] [address] Assessment & Plan Assessment/Plan (1) Non-STEMI (non-ST [...] troponins were also noted to be elevated. PFSH Medical History (Updated 12/03/23 @ 10:[address] Vanessa Simmons MD) Advanced directives, counseling/discussion Anemia Anginal equivalent Aortic stenosis Asthma Atherosclerosis 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 Atrial fibrillation BPH [...] mg tablet,delayed release 81 mg PO DAILY@0800 [facility] 12/06/16 [History Last Taken 12/02/23] travoprost [...] #90 tabs 11/23/23 [Rx Last Taken 12/01/23] ncbenewa-pxh-rgwin acid 0.4 mg-lycopene 300 mcg-lutein 250 mcg [...] 83.1 H, Lymph % (Auto) 11.5 L, Florence % (Auto) 4.1, Eos % (Auto) 0.5, [...] Sl. Cloudy, Urine pH 7.0, Ur Specific Castella 1.010, Urine Protein 15 H, Urine Glucose [...] 81.4 H, Lymph % (Auto) 7.3 L, Florence % (Auto) 7.4, Eos % (Auto) 0.7, [...] 83.1 H, Lymph % (Auto) 11.5 L, [place] % (Auto) 4.1, Eos % (Auto) 0.5, [...] Sl. Cloudy, Urine pH 7.0, Ur Specific Castella 1.010, Urine Protein 15 H, Urine Glucose (UA) Normal, Urine Ketones Negative, Urine Occult Blood 50 H, Urine Nitrite Negative, Urine Bilirubin Negative, Urine Urobilinogen Normal, Ur Leukocyte Esterase 100 H, Urine RBC 0-5 SEEN, Urine WBC 10-25 SEEN 12/02/23 15:04: pH 7.48 H, Bicarbonate Actual 24.6, Base Excess 1, O2 Lvangkjtyd25 L, ABG pCO2 33.1 L, ABG pO2 [...] 81.4 H, Lymph % (Auto) 7.3 L, Florence % (Auto) 7.4, Eos % (Auto) 0.7, [...] Mario MD; Dr. Miguelito [place] MD~ [facility]igned [facility] Work Phone: [phone] History and physical note Author Miguelito [facility] December 02, 2023 6:15pm Note Date/Time December 02, 2023 5:4 5pm [facility] Medical Records Department [address] [facility] [place] [address] H&P Exam - Hospitalist 12/02/23 1741 MR#: [id number] Acct: [id number] Name: JESSEE RUST Rep #:[id number] : 1935 88 From: Miguelito gan MD PCP: Dr. Addi Mario MD Status:A DM IN Location: [place] [address] HPI - General General Date of Admission: [...] cardiology about his potential non-STEMI. [facility] Medical History (Updated 12/02/23 @ 17:40 by Saumya Presley) Advanced directives, counseling/discussion Anemia Anginal equivalent Aortic stenosis Asthma Atherosclerosis 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 Atrial fibrillation BPH [...] tablet,delayed release 81 mg PO DAILY@0800 [facility] 12/06/16 [History Last Taken 12/02/23] travoprost 0.004 [...] #90 tabs 11/23/23 [Rx Last Taken 12/01/23] bdwycqys-wcc-nljer acid 0.4 mg-lycopene 300 mcg-lutein 250 mcg [...] 83.1 H, Lymph % (Auto) 11.5 L, Florence % (Auto) 4.1, Eos % (Auto) 0.5, [...] Sl. Cloudy, Urine pH 7.0, Ur Specific Castella 1.010, Urine Protein 15 H, Urine Glucose [...] 15:48 EDT Reading Location ID and State: [facility] / [place] , Service support , Assessment & Plan [...] with colleagues Charges/Coding Visit Charges Inpatient E&M: 24870 Init Hosp L3 12/02/231814 <Electronically signed by Miguelito [place] MD> Cosigner Signature (if applicable): CC: Dr. Addi Mario MD; Dr. Miguelito [place] MD~ Signed [facility] Work Phone: [phone] Discharge summary Author Antonio James [facility] December 02, 2023 5:58pm Note Date/Time December 02, 2023 1:1 2pm [facility] Medical Records Department [address] [place] [address] Emergency Department Summary 12/02/23 MR#: [id number] Acct: [id number] Name: JESSEE RUST Rep #:[id number] : 1935 88 From: Antonio Taylor PCP: Dr. Addi Mario MD Status:A DM IN Location: [address] History of Present Illness Chief Complaint: [...] bladder changes. Patient denies any saddle anesthesia. [facility] Medical History Advanced directives, counseling/discussion Anemia Anginal equivalent Aortic stenosis Asthma Atherosclerosis 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 BPH (benign prostatic [...] tablet,delayed release 81 mg PO DAILY@0800 [facility] 12/06/16 [History Last Taken 12/02/23] travoprost 0.004 [...] #90 tabs 11/23/23 [Rx Last Taken 12/01/23] sumtrdfz-amc-tgsud acid 0.4 mg-lycopene 300 mcg-lutein 250 mcg [...] QTc interval was normal at 452 ms. Harrah was borderline left axis deviation at -25. There are no acute ST or T wave changes noted. Prior EKG tracings: available for review Prior: Unchanged Management Discussion w/another healthcare provider: Hospitalist and Brush Cutter Treatment and Re-Evaluation :: On reevaluation, patient [...] (36), Including time spent:, Discussing w/Patient &/or Family/Senior Procurement Manager, Discussing w/Consultants, Arranging Admission or Transfer and [...] Provider] - Disposition Disposition: Acute Care Hospital [facility] What to do if you have Problems For any increased pain, shortness of breath, bleeding, nausea or vomiting, chestpain, or any unexpected problems, contact your Primary Care Provider. Call [facility] ([phone]) or report to the closest Emergency Room. Call 911 if necessary. 12/02/23 3456 <Electronically signed by Antonio James DO> Cosigner Signature (if applicable): CC: Dr. Addi Mario MD ~ Signed [facility] Work Phone: 1(758) 133-401602-19-2024 Miscellaneous Notes* Addendum Note - Shawn Shea MD - 11/07/2023 3:03 PM ESTAddended by: SHAWN SHEA on: 11/07/2023 03:03 PM Modules accepted: Orders documented in this encounterOhio[facility]02-19-2024 Instructions* Patient Instructions* Shawn Shea MD - 11/07/2023 2:56 PM EST You will be dilated on your next visit. This will likely make your vision blurry for several hours, and you should strongly consider bringing a concrete mixer truck driver. documented in this encounterOhio[facility]02-19-2024 History of Present illness Narrative* Shawn Shea MD - 11/07/2023 2:52 PM EST New from [place] Tmax: <22; Pachy: -, - Lasers and [...] and agree withall of its relevant components. Sahwn Shea MD documented in this encounterOhio[facility]12-15-2023 Miscellaneous Notes* Telephone Encounter - Xenia Guillen [...] house. He was concerned about waiting until [place], but he did not want to drive to main campus. Explained he could go to [facility] or Emergency Room if he felt he needed to . * Telephone Encounter - Xenia Guillen - 09/02/2023 2:18 PM EST Pt called back with new symptoms, eye is irritated and sensitive to the light outside. Spoke with Zaida, second floor appt desk found appt in [place] for him on 09-06. * Telephone Encounter [...] 07/04/2023 2:28 PM Status: Signed New from [place] Tmax: <22; Pachy: -, - Lasers and [...] both eyes - stable documented in this encounterOhio[facility] Center10-16-2023 History of Present illness Narrative* Shawn Shea MD - 07/04/2023 3:45 PM EDT New from [place] Tmax: <22; Pachy: -, - Lasers and [...] components. Shawn Shea MD documented in this encounterOhio[facility] Center09-13-2023 History of Present illness Narrative* Shawn Shea [...] components. Shawn Shea MD documented in this encounterOhiohealth [facility] Center08-04-2023 Discharge [facility] 22, 2023 10:17pm Note Date/Time April 22, 2023 8:4 7pm [facility] Medical Records Department [address] [place] [address] Emergency Department Summary 04/22/23 MR#: [id number] Acct: [id number] Name: JESSEE RUST Rep #:[id number] : [...] abdominal pain, nausea, and vomiting. [facility] <BASSEM Soria - Last Filed: 04/22/23 22:01> [facility] Medical History Advanced directives, counseling/discussion Anemia Anginal equivalent Aortic stenosis Asthma Atherosclerosis 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 BPH (benign prostatic [...] <BASSEM Soria - Last Filed: 04/22/23 22:01> [facility] Narrative Medical decision making narrative: Patient presenting [...] 21:22 EDT Reading Location ID and State: [facility] / [place] Tel [phone], Service support , <Dr. Heber Miranda MD - Last Filed: 04/22/23 22:17> [facility] Narrative Medical decision making narrative: Patient presenting [...] 21:22 EDT Reading Location ID and State: [facility] / [place] Tel [phone], Service support , Treatment and Re-Evaluation :: [...] your Primary Care Provider. Call [facility] ([phone]) or report to the closest Emergency Room. Call 911 if necessary. 04/22/232200 <Electronically signed by Marisol LUEVANO> Cosigner Signature (if applicable): 04/22/232216 <Electronically signed by Heber Miranda MD> CC: Dr. Addi Mario MD ~ [facility] Work Phone: 1(932) 197-699007-03-2023 Discharge summary Author [place] [facility] March 21, 2023 10:46pm Note Date/Time March 21, 2023 10:44 pm [facility] Medical Records Department [address] [place] [address] [place] [address] Emergency Department Summary 03/21/23 MR#: [id number] Acct: [id number] Name: JESSEE RUST Rep #:[id number] : 1935 88 From: Washington Taylor PCP: Dr. Addi Mario MD Status:R EG ER Location: ED HPI History of Present Illness Chief Complaint: Nosebleed [facility] Medical History Advanced directives, counseling/discussion Anemia Anginal equivalent Aortic stenosis Asthma Atherosclerosis 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 BPH (benign prostatic [...] Ox 97 Oxygen Delivery Method Room Air [facility] MDM Narrative Medical decision making narrative: HISTORY [...] your Primary Care Provider. Call [facility] ([phone]) or report to the closest Emergency Room. Call 911 if necessary. 03/21/23 4164 <Electronically signed by Washington Pepper DO> Cosigner Signature (if applicable): CC: Dr. Addi Mario MD ~ [facility] Work Phone: [phone]) 148-249707-03-2023 Hospital Discharge instructions Additional Instructions Thank you [...] care physician for further outpatient evaluation and management.[facility] Work Phone: 1(460) 824-265306-24-[address] Ferrera [facility] March 12, 2023 2:45pm Note Date/Time March 12, 2023 1:29 pm [facility] Medical Records Department [address] [place] [address] Emergency Department Summary 03/12/23 MR#: [id number] Acct: [id number] Name: JESSEE RUST Rep #:[id number] : [...] palpitations. At this time he is asymptomatic. 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 Call [facility] ([phone]) or report to the closest Emergency Room. Call 911 if necessary. 03/12/23 7978 <Electronically signed by Javier Ferrera MD> Cosigner Signature (if applicable): CC: Dr. John Cool MD; Dr. Addi Mario MD ~ [facility]igned [facility] Work Phone: [phone] 960-102404-05-2016 History of Past illness Narrative* Problem Noted [...] of this encounter (statuses as of 07/12/2022) [facility] History of Past illness Narrative* Problem Noted [...] of this encounter (statuses as of 06/01/2023) [facility] History of Past illness Narrative* Problem Noted [...] of this encounter (statuses as of 07/05/2023) [facility] History of Past illness Narrative* Problem Noted [...] of this encounter (statuses as of 09/03/2023) [facility] History of Past illness Narrative* Problem Noted [...] of this encounter (statuses as of 11/07/2023) [facility] December 08, 2023 11:03am Note Date/Time December 08, 2023 11: 03am [facility] Medical Records Department [address] [place] [address] Counseling Note - Pharmacy 12/08/23 1102 MR#: [id number] Acct: [id number] Name: JESSEE RUST Rep #:[id number] : 1935 88 From: Salome Childers PCP: Dr. Addi Mario MD Status:A DM IN Y [facility] [place] [facility] Pharmacy Service has performed discharge [...] 325 mg PO QODAY #90 tabs 11/23/23 chpkxmur-xub-iqnfl acid 0.4 mg-lycopene 300 mcg-lutein 250 mcg tablet (Centrum Silver) 1 tab PO DAILY 12/02/23 netarsudil 0.02 %-latanoprost 0.005 % eye drops (Rocklatan) 1 drp ophthalmic (eye) QHS 12/02/23 cefdinir 300 mg capsule 300 mg PO BID #10 caps 12/08/23 12/08/23 1103 <Electronically signed by Salome Childers > Date _ Salome Childers Cosigner Signature (if applicable): Date CC: ~ [facility]igned [facility] Work Phone: Discharge summary Author Klaudia [facility] December 08, 2023 10:47am Note Date/Time December 08, 2023 10: 47am [facility] Medical Records Department [address] [place] [address] Transfer to [facility] MR#: [id number] Acct: [id number] Name: JESSEE RUST Rep #:[id number] : [...] SERVICES PRIOR TO HIS/HER TRANSFER TO [facility]. 12/08/23 1047<Electronically signed by Klaudia Gonzales MD> [...] in before D/C Order can be placed): [facility] 12/08/23 1047 <Electronically signed by Klaudia Gonzales MD> Cosigner Signature (if applicable): CC: Dr. Vanessa Simmons MD; Dr. Addi Mario MD; Dr. Darien Lee MD;Dr. Miguelito Laguna MD ~ [facility] Work Phone: Discharge summary Author Hai Rand [facility] Note Date/Time March 17, 2025 7:01 am [facility] Medical Records Department [address] [place] [address] Emergency Department Summary 03/17/25 MR#: [id number] Acct: [id number] Name: JESSEE RUST Rep #:[id number] : 1935 89 From: Hai Rand DO PCP: Dr. Addi Mario MD Status:R EG ER Location: ED HPI History of Present Illness Chief Complaint: Nosebleed Informant: patient Narrative Narrative: Patient is an 89-year-old male with history of chronic atrial fibrillation on Eliquis. He states he has been having intermittent and recurrent right-sided nosebleeds for the past 3 weeks. He states he was seen by ENT and underwent a cautery procedure roughly a week ago as well. He states that there has been no recent trauma and he denies sick symptoms with nasal congestion and recurrent nose blowing. However he is continue to have intermittent bleeds. He states hewas bleeding last night but was able to get under control. However he awoke this morning around 4 AM and had bleeding out of the right nostril that would not resolve with pressure and secondary to this he presents for evaluation. [facility] Medical History Bradycardia Immunity status testing Sore [...] Essential hypertension Atherosclerosis 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 Primary biliary cirrhosis Cholelithiasis without obstruction Hyperlipidemia Home Medications ?Medication ?Instructions ?Recorded ?Last Taken ?Type aspirin 81 mg tablet,delayed 81 mg PO DAILY@0800 [employer] 12/06/16 12/19/23 History release Held on 03/07/25. [...] ea 04/30/23 Unkn own Rx Nebulizer System) ckfqguwd-yqs-lchoy acid 0.4 1 tab PO DAILY supplement [...] of breat h or wheezing #90 mL cetirizine 10 mg tablet 10 mg PO [...] QHS cholesterol #90 tabs 10/22/24 Unknown Rx potassium chloride 10 mEq 10 meq PO QDAY With Lasix #9 0 tabs 11/15/24 Unknown Rx tablet,extended release(part/cryst) brinzolamide 1 %-brimonidine 0.2 % 1 drp ophthalmic (e ye) DAILY 12/14/24 Unknown History eye drops,suspension (Simbrinza) budesonide-formoterol [...] mg PO BID #60 tabs Unknown Rx furosemide 40 mg tablet 40 mg PO DAILY 03/17/25 Unkn own History Allergy/AdvReac Type Severity Reaction Status Date / Time metoprolol (From Lopressor) Allergy Intermediate Shortness Verified 03/17/25 05:41 of breath bee venom protein (honey Allergy Mild Swelling Verified 03/17/25 05:41 bee) (bee sting) Penicillins Allergy Rash Verified 03/17/25 05:41 Family History Father Hypertension Grandmother Hypertension Other [...] fever(s) Eyes Eyes: Denies change in vision ENT ENT ED: Reports other Details: Positive nosebleed Cardiovascular Cardiovascular: Denies chest pain or racing heartbeat Respiratory/Chest Respiratory/Chest: Denies cough or dyspnea Gastrointestinal Gastrointestinal: Denies abdominal pain, diarrhea, nausea or vomiting Genitourinary Genitourinary ED: Denies dysuria Musculoskeletal Musculoskeletal: Denies myalgias Integumentary Denies rash Neurologic Neurologic: Denies headache(s) Hematologic/Lymphatic Hematologic/Lymphatic: Reports easy bleeding and easy bruising EXAM Physical Exam Const Vital Signs: 03/17/25 05:41 Temperature 97.7 F L Temperature Source Oral Pulse Rate 62 Respiratory Rate 18 Blood Pressure 141/68 H Blood Pressure Mean 92 Pulse Ox 100 Oxygen Delivery Method Room Air Positive well nourished and well developed General Appearance ED: well developed; Negative for pallor HEENT HEENT Narrative: There is a clot in the right nostril with dark red nonpulsatile blood consistentwith anterior epistaxis No overflow bleeding noted in the left nostril No active bleeding the posterior pharynx No airway edema or compromise Eyes PERRL and EOMs intact bilaterally General Eye ED: Negative for pale conjunctiva or scleral icterus Neck supple Resp normal respiratory effort Resp Narrative: Breath sounds are diminished throughout with faint expiratory wheeze in the bilateral lower lobes consistent with history of asthma but no signs of respiratory distress Cardio Rate: bradycardia and other Other Details: Irregularly irregular rhythm with bradycardic rate consistent with history of chronic atrial fibrillation There is a grade 5 out of 6 holosystolic murmur as well. Extremity normal to inspection Neuro oriented x3, CN's II-XII intact bilaterally and no sensory deficits noted Sensorium / Orientation: alert Psych mental status grossly normal Skin no rashes or lesions noted General Skin Exam: Negative for jaundice or pallor MDM MDM MDM Narrative Medical decision making narrative: Patient arrived to the ER with stable vitals. He has had a recurrent nosebleedsmainly out of the right nostril over the past 3 weeks and has already seen ENT and underwent a cauterization procedure. Despite this he continues to have intermittent bleeds. Today's exam is consistent with anterior epistaxis as there is dark red nonpulsatile bleeding from the right nostril. He does not have findings to suggest a posterior nosebleed from the sphenopalatine artery. As his vitals are stable and this is been a intermittent issue over the past fewweeks I do not feel the need for laboratory testing as his physical exam does not suggest acute blood loss anemia. Because of his recurrent symptoms and the fact he is on a blood thinner I did elect to perform packing with a 5.5cm rapid Rhino. After the right nostril was packed with the rapid Rhino it was inflated to 4 cc of air. The patient was then watched for 20 to 30 minutes in the ER. He did not have any overflow bleeding into the left nostril nor did he had any bleeding into the posterior pharynx indicating there was hemostasis of the anterior epistaxis. He was advised to hold his Eliquis for the next 3 days secondary to his nosebleed and was not directed he needs to follow-up with ENT once again to discuss further treatment options. However at this time his vitals are stable and there is no sign of persistent bleeding he is otherwise safe for discharge History & Record Review Discussion w/independent historian: Patient Discharge Plan Triage Chief Complaint: Nosebleed ED Provider: Hai Rand Dx/Rx/DC Orders Clinical Impression: Acute anterior epistaxis, Essential hypertension, Hyperlipidemia, Chronic atrial fibrillation, Current use of penitentiary anticoagulation Instructions: ED Epistaxis (Adult) Prescriptions: No Action cholecalciferol (vitamin D3) 50 [...] shortness of breath or wheezing) Qty: 903RF Simbrinza 1-0.2 % drops,suspension 1 drp ophthalmic (eye) DAILY budesonide-formoterol [Symbicort] 160-4.5 mcg/actuation HFA aerosol inhaler 2 puff inhalation BID Qty: 1 11RF Rx Instructions: administer with spacer, rinse mouth after each use potassium chloride 10 mEq tablet,ER particles/crystals 10 [...] (Reason: Pain Score 1-10) Qty: 0 0RF furosemide 40 mg tablet 40 mg PO DAILY (DME) Disability Placard See Rx Instructions .Route [...] Addi Mario MD [Primary Care Provider] - Arian Rainey MD [Med Staff - Active Staff] - (Anterior epistaxis on Eliquis) Activity Restrictions/Additional Instructions: Please hold your Eliquis for the next 3 days. Follow-up with Dr. Rainey/ENT forrepeat evaluation and do not remove your packing until you are evaluated by him. Return to the ER should you have any further concerns Print Language: Arabic Disposition Disposition: Home, Self Care What to do if you have Problems For any increased pain, shortness of breath, bleeding, nausea or vomiting, chestpain, or any unexpected problems, contact your Primary Care Provider. Call [facility] ([phone]) or report to the closest Emergency Room. Call 911 if necessary. 03/17/25 0701 <Electronically signed by Hai Rand DO> Cosigner Signature (if applicable): CC: Dr. Addi Mario MD ~ [facility]igned [facility] Work Phone: Evaluation note* Diagnosis Onset Date Resolution Status Atherosclerosis 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 chronic Bradycardia chronic Presence of stent in coronary artery chronic Obesity acute Restrictive airway disease a cute Asthma chronic Vitamin D deficiency acute Asthma chronic BPH (benign prostatic hyperplasia) chronic Dizziness chronic Essential hypertension chron ic Iron deficiency anemia chron ic Asthma chronic New onset atrial fibrillation acute Atherosclerosis 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 chronic Hyperlipidemia [facility] Work Phone: Evaluation note* Diagnosis Onset Date Resolution Status Obesity acute Restrictive airway disease a cute Asthma chronic BPH (benign prostatic hyperplasia) chronic Essential hypertension chron ic Hyperlipidemia chronic Memory impairment chronic Physical debility [facility] Work Phone: Evaluation note* Diagnosis Onset Date Resolution Status BPH (benign prostatic hyperplasia) chronic Essential hypertension chron ic Hyperlipidemia chronic Memory impairment chronic Physical debility chronic Hypertension [facility] Work Phone: Evaluation note* Diagnosis Onset Date Resolution Status Essential hypertension chron ic Hyperlipidemia chronic Memory impairment chronic Aortic stenosis chronic Atherosclerosis 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 chronic Essential hypertension chron ic Hyperlipidemia chronic New onset atrial fibrillation chronic [facility] Work Phone: Evaluation note* Diagnosis Onset Date Resolution Status Aortic stenosis chronic Atherosclerosis 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 chronic Essential hypertension chron ic Hyperlipidemia chronic New onset atrial fibrillation chronic Asthma chronic Advanced directives, counseling/discussion acute Essential hypertension chron ic Glaucoma chronic Hyperlipidemia chronic Memory impairment chronic [facility] Work Phone: Evaluation note* Diagnosis Onset Date Resolution Status Advanced directives, counseling/discussion acute Essential hypertension chron ic Glaucoma chronic Hyperlipidemia chronic Memory impairment chronic Extensor tenosynovitis of right wrist acute [facility] Work Phone: Evaluation note* Diagnosis Onset Date Resolution Status Advanced directives, counseling/discussion acute Essential hypertension chron ic Glaucoma chronic Hyperlipidemia chronic Memory impairment chronic Extensor tenosynovitis of right wrist acute Essential hypertension chron ic Glaucoma chronic Psoriasis chronic Thrombocytopenia chronic Aortic stenosis chronic Atherosclerosis 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 chronic Essential hypertension chron ic Hyperlipidemia chronic New onset atrial fibrillation [facility] Work Phone: Evaluation note* Diagnosis Onset Date Resolution Status Extensor tenosynovitis of right wrist acute Essential hypertension chron ic Glaucoma chronic Psoriasis chronic Thrombocytopenia chronic Aortic stenosis chronic Atherosclerosis 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 chronic Essential hypertension chron ic Hyperlipidemia chronic New onset atrial fibrillation chronic COVID-19 acute Asthma chronic Essential hypertension chron ic Hyperlipidemia chronic [facility] Work Phone: Evaluation note* Diagnosis Primary open angle glaucoma (POAG) of both eyes, severe stage- Primary Epiretinal membrane (ERM) of left eye Band keratopathy, bilateral [facility] Primary open angle glaucoma (POAG) of both eyes, severe stage [facility] Primary open angle glaucoma (POAG) of both eyes, severe stage- Primary [facility] Diagnosis Onset Date Resolution Status Asthma chronic Essential hypertension chron ic Hyperlipidemia chronic Memory impairment chronic COVID-19 acute Aortic stenosis chronic Atherosclerosis 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 chronic Hyperlipidemia chronic Sinus bradycardia chronic Non-STEMI (non-ST elevated myocardial infarction) acute Sepsis acute Urinary tract infection acut e [facility] Work Phone: Evaluation note* Diagnosis Onset Date Resolution Status Asthma chronic Essential hypertension chron ic Hyperlipidemia chronic Memory impairment chronic COVID-19 acute Paroxysmal atrial fibrillation acute Aortic stenosis chronic Atherosclerosis 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 chronic Hyperlipidemia chronic Sinus bradycardia chronic Acute kidney injury acute Cardiomyopathy acute Mitral regurgitation acute Non-STEMI (non-ST elevated myocardial infarction) acute Paroxysmal atrial fibrillation acute Sepsis acute Ureteral calculi acute Urinary tract infection acut e Aortic stenosis chronic Hyperlipidemia chronic Primary biliary cirrhosis ch ronic Thrombocytopenia chronic [facility] Work Phone: Evaluation note* Diagnosis Onset Date Resolution Status COVID-19 acute Aortic stenosis chronic Atherosclerosis 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 chronic Paroxysmal atrial fibrillation chronic Sinus bradycardia chronic Aortic stenosis chronic Paroxysmal atrial fibrillation chronic Acute kidney injury resolved Urinary tract infection reso lved Allergic rhinitis acute Atrial fibrillation acute BPH (benign prostatic hyperplasia) acute Debility acute Encephalopathy acute GERD (gastroesophageal reflux disease) acute Pneumonia acute Primary biliary cirrhosis ac [place] Right ureteral stone acute Asthma chronic Glaucoma chronic Urinary tract infection reso lved Aortic stenosis chronic Atherosclerosis 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 chronic Paroxysmal atrial fibrillation chronic Sinus bradycardia chronic [facility] Work Phone: Evaluation note* Diagnosis Primary open angle glaucoma (POAG) of both eyes, severe stage [facility] Diagnosis Primary open angle glaucoma (POAG) of both eyes, severe stage [facility] Diagnosis Redness of both eyes- Primary Primary open angle glaucoma (POAG) of both eyes, 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 Platelets 115. Discussed with cardiology may hold your baby aspirin and Eliquis. soft foods. Soft toothbrush avoid brushing the right lower teeth area at this time. Follow-up with your doctors. Return if any worsening symptoms.[facility] Work Phone: Hospital Discharge instructions Additional Instructions Follow-up with your PCP in 1 week if no improvement of your pain, ice the area, elevate to help with swelling, return for any other concerns. Take Tylenol as needed for your pain. [facility] Work Phone: Hospital Discharge instructionsAdditional Instructions Please hold your Eliquis for the next 3 days. Follow-up with Dr. Rainey/ENT for repeat evaluation and do not remove your packing until you are evaluated by him. Return to the ER should you have any further concernsWOhio[facility] Work Phone: Reason for referral (narrative)No reason for referral information availableWOhioHealth [facility] Work Phone: Chief Complaint and Reason for Visit Chief Complaint AORTIC STENOSIS/SOB AORTIC STENOSIS/SOB 6 MO F/U (NN PT) Hospital FU 2 M FU BP CK, BROUGHT CUFF 6 wk FU LEFT KNEE xray NN PT ? new onset atrial fib per MMM/L.[place] E ORDERS Reason for Visit Atherosclerosis of c oronary artery of deering heart without angina pectoris Bradycardia Presence of stent in coronary artery Obesity Restrictive airway disease Asthma Vitamin D deficiency Asthma BPH (benign prostatic hyperplasia) Dizziness Essential hypertension Iron deficiency anemia Asthma New onset atrial fibrillation Atherosclerosis 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 Hyperlipidemia Chief Complaint 6 MO F/U (NN PT) Hospital FU 2 M FU BP CK, BROUGHT CUFF 6 wk FU LEFT KNEE xray NN PT ? new onset atrial fib per MMM/L.[place] E ORDERS NEW ONSET ATRIAL FIBRILLATION Reason for Visit Atherosclerosis of c oronary artery of deering heart without angina pectoris Bradycardia Presence of stent in coronary artery Obesity Restrictive airway disease Asthma Vitamin D deficiency Asthma BPH (benign prostatic hyperplasia) Dizziness Essential hypertension Iron deficiency anemia Asthma New onset atrial fibrillation Atherosclerosis 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 Hyperlipidemia Chief Complaint [...] Complaint 5 M FU E ORDER gi [facility] ER FU EORDERS BP CHECK Reason for Visit BPH (benign prostati c hyperplasia) Essential hypertension Hyperlipidemia Memory impairment Physical debility Hypertension Chief Complaint 5 M FU E ORDER gi [facility] ER FU EORDERS BP CHECK 9 M FU (NN PT SWITCHING TO TRACK LINER OPERATOR) MURMUR Reason for Visit Essential hypertensi on Hyperlipidemia Memory impairment Aortic stenosis Atherosclerosis 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 Essential hypertension Hyperlipidemia New onset atrial fibrillation Chief Complaint 9 M FU (NN PT SWITCH ING TO TRACK LINER OPERATOR) MURMUR 6 M FU 5 M FU RT WRIST Reason for Visit Aortic stenosis Atherosclerosis 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 Essential hypertension Hyperlipidemia [...] RT WRIST RIGHT WRIST A. FIB NOSEBLEED [facility] FU nosebleed 6 M FU COUGH Reason for Visit Advanced directives, counseling/discussion Essential hypertension Glaucoma Hyperlipidemia Memory impairment Extensor tenosynovitis of right wrist Essential hypertension Glaucoma Psoriasis Thrombocytopenia Aortic stenosis Atherosclerosis 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 Essential hypertension Hyperlipidemia New onset atrial fibrillation Chief Complaint RT WRIST RIGHT WRIST A. FIB NOSEBLEED [facility] FU nosebleed 6 M FU COUGH ACUTE [facility] FU - COVID DAY 7 CHEST XRAY Reason for Visit Extensor tenosynovit is of right wrist Essential hypertension Glaucoma Psoriasis Thrombocytopenia Aortic stenosis Atherosclerosis 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 Essential hypertension Hyperlipidemia New onset atrial fibrillation COVID-19 Asthma Essential hypertension Hyperlipidemia Chief Complaint 5 M FU Bradycardia, unspecified FU PER MH SEE CLINICAL NOTE NSTEMI, UTI, SEPSIS Reason for Visit Asthma Essential hypertension Hyperlipidemia Memory impairment COVID-19 Aortic stenosis Atherosclerosis 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 Hyperlipidemia Sinus bradycardia [...] Aortic stenosis Atherosclerosis 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 Hyperlipidemia Sinus bradycardia [...] N STEMI WITH UTI & PNEUMONIA S/P [facility] 12/11 Reason for Visit COVID-19 Aortic stenosis Atherosclerosis 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 Paroxysmal atrial fibrillation Sinus bradycardia Aortic stenosis Paroxysmal atrial fibrillation Acute kidney injury Urinary tract infection Allergic rhinitis Atrial fibrillation BPH (benign prostatic hyperplasia) Debility Encephalopathy GERD (gastroesophageal reflux disease) Pneumonia Primary biliary cirrhosis Right ureteral stone Asthma Glaucoma Urinary tract infection Aortic stenosis Atherosclerosis 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 Paroxysmal atrial fibrillation [...] 1 :53pm Atherosclerosis 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 October 23, 2024 [...] 1 :53pm Atherosclerosis 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 October 23, 2024 [...] 1 :53pm Atherosclerosis 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 October 23, 2024 [...] 1 :53pm Atherosclerosis 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 October 23, 2024 [...] 2:15p m Atherosclerosis 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 February 19, 2025 [...] 2:15p m Atherosclerosis 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 February 19, 2025 2:15pm CHF (congestive heart failure) February 19, 2025 2:15pm Hyperlipidemia February 19, 2025 2:15p m Paroxysmal atrial fibrillation February 19, 2025 2:15pm Sinus bradycardia February 19, 2025 2:15p m Chief Complaint Admit Date covid test November 30, 2024 1:3 6pm 6 M FU December 14, 2024 1:2 9pm SWALLOWING CONCERNS January 02, 2025 12: 43pm 3 M FU February 14, 2025 2:05p m Back in a-fib, see clinical notes Devyn Petit ne 2024 2:15pm AFIB March 05, 2025 10:4 8am Atrial fibrillation March 05, 2025 11:0 4am E-ORDER March 07, 2025 1:34 pm ANKLE March 10, 2025 4:05 pm nosebleed March 17, 2025 5:40 am Reason for Visit Admit Date Exposure to COVID-19 virus November 30, 2 [...] 2:15p m Atherosclerosis 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 February 19, 2025 [...] Will Yes July 23 2:06pm Power of Manager Scientific Yes July 23, 2021 2:06pm Documents on File Type Date Recorded Patient Facsimile Operator Expl anation Advance Directive(s) 01/15/2016 12:48 PM Advance Directive Response Recorded Date/ Time Living Will Yes July 23 1:06pm Power of Manager Scientific Yes July 23, 2021 1:06pm Advance Directive Response Recorded Date/ Time Name of Medical Power of Manager Scientific SHAWNEE RUST August 24, 2022 6:11am Living Will Yes August 24 6:11am Power of Manager Scientific Yes August 24, 2022 6:11am Advance Directive Response Recorded Date/ Time Name of Medical Power of Manager Scientific SHAWNEESara RUST January 22, 2023 10:29am Living Will Yes January 22, 2023 10 :29am Power of Manager Scientific Yes January 22, 2023 10:29am Advance Directive Response Recorded Date/ Time Name of Medical Power of Manager Scientific SHAWNEE RUST January 22, 2023 10:29am Name of Medical Power of Manager Scientific SHAWNEE RUST- ; AAKASH RUST- SON March 12, 2023 12:24pm Living Will Yes March 12, 2023 12:24pm Power of Manager Scientific Yes March 12 12:24pm Advance Directive Response Recorded Date/ Time Name of Medical Power of Manager Scientific SHAWNEE RUST January 22, 2023 10:29am Name of Medical Power of Manager Scientific SHAWNEESara RUST- ; AAKASH RUST- SON March 12, 2023 12:24pm Name of Medical Power of Manager Scientific shawnee rust March 21, 2023 7:58pm Living Will Yes March 21, 2023 7 :58pm Power of Manager Scientific Yes March 21, 2023 7:58pm Advance Directive Response Recorded Date/ Time Name of Medical Power of Manager Scientific SHAWNEE RUST January 22, 2023 10:29am Name of Medical Power of Manager Scientific SHAWNEE YOCASTA- ; AAKASH RUST- SON March 12, 2023 12:24pm Name of Medical Power of Manager Scientific present March 25, 2023 11:31am Name of Medical Power of Manager Scientific --SHAWNEE April 22, 2023 8:23pm Living Will Yes April 22, 2023 8:23pm Power of Manager Scientific Yes April 22 8:23pm Name of Medical Power of Manager Scientific shawnee rust March 21, 2023 7:58pm Advance Directive Response Recorded Date/ Time Name of Medical Power of Manager Scientific SHAWNEE RUST December 02, 2023 1:37pm Living Will Yes December 02, 2023 1:37pm Power of Manager Scientific Yes December 01 1:37pm Advance Directive Response Recorded Date/ Time Name of Medical Power of Manager Scientific SHAWNEE RUST December 02, 2023 5:24pm Living Will Yes December 02, 2023 5:24pm Power of Manager Scientific Yes December 01 5:24pm Advance Directive Response Recorded Date/ Time Name of Medical Power of Manager Scientific SHAWNEE RUST December 02, 2023 5:24pm Name of Medical Power of Manager Scientific Shawnee Rust, spouse December 09, 2023 12:01pm Name of Medical Power of Manager Scientific ON FILE December 20, 2023 10:35am Living Will Yes December 20, 2023 10:35am Power of Manager Scientific Yes December 19 10:35am Documents on File Type Date Recorded Patient Facsimile Operator Expl anation Advance Directive(s) 01/15/2016 12:48 PM Advance Directive Response Recorded Date/ Time Living Will Yes December 20, 2023 10:35am Power of Manager Scientific Yes December 19 10:35am Advance Directive Response Recorded Date/ Time Living Will Yes December 20, 2023 10:35am Do you have a Healthcare Power of Manager Scientific? Yes December 20, 2023 10:35am Advance Directive Response Recorded Date/ Time Living Will Yes December 20, 2023 10:35am Do you have a Healthcare Power of Manager Scientific? Yes December 20, 2023 10:35am Do you have a Healthcare Power of Manager Scientific? Yes March 10, 2025 4:22pm Name of Medical Power of Manager Scientific shawnee March 10, 2025 4:22pm Advance Directive Response Recorded Date/ Time Living Will Yes December 20, 2023 10:35am Do you have a Healthcare Power of Manager Scientific? Yes December 20, 2023 10:35am Do you have a Healthcare Power of Manager Scientific? Yes March 17, 2025 5:44am Do you have a Healthcare Power of Manager Scientific? Yes March 10, 2025 4:22pm Name of Medical Power of Manager Scientific shawnee March 10, 2025 4:22pm Reason for Referral Specialty Diagnoses / Procedures Referred By Kit buckner Referred To Contact Education Associate Diagnoses Primary open angle glaucoma (POAG) of both eyes, severe stage Procedures CONSULT TO [facility] Shawn Shea MD [address] [place] [address] [facility] [address] [place] [address] Referral ID Status Reason Start Date Expiration Date Visits Requested Visits Authorized [id number] Ref Not Required PCP Requested Referral 03/12/2024 [...] or prosecute any alcohol or drug abuse patient.[facility] the event this information is protected by the Federal Confidentiality of Alcohol and Drug Abuse Patient Records regulations: The Federal rules restrict any use of the information to criminally investigate or prosecute any alcohol or drug abuse patient.[facility] Center[facility] the event this information is protected by the Federal Confidentiality of Alcohol and Drug Abuse Patient Records regulations: The Federal rules restrict any use of the information to criminally investigate or prosecute any alcohol or drug abuse patient.[facility] Center[facility] the event this information is protected by the Federal Confidentiality of Alcohol and Drug Abuse Patient Records regulations: The Federal rules restrict any use of the information to criminally investigate or prosecute any alcohol or drug abuse patient.[facility] Center[facility] the event this information is protected by the Federal Confidentiality of Alcohol and Drug Abuse Patient Records regulations: The Federal rules restrict any use of the information to criminally investigate or prosecute any alcohol or drug abuse patient.[facility] Center[facility] the event this information is protected by the Federal Confidentiality of Alcohol and Drug Abuse Patient Records regulations: The Federal rules restrict any use of the information to criminally investigate or prosecute any alcohol or drug abuse patient.[facility] Center[facility] the event this information is protected by the Federal Confidentiality of Alcohol and Drug Abuse Patient Records regulations: The Federal rules restrict any use of the information to criminally investigate or prosecute any alcohol or drug abuse patient.[facility] Center[facility] the event this information is protected by the Federal Confidentiality of Alcohol and Drug Abuse Patient Records regulations: The Federal rules restrict any use of the information to criminally investigate or prosecute any alcohol or drug abuse patient.[facility] Center[facility] the event this information is protected by the Federal Confidentiality of Alcohol and Drug Abuse Patient Records regulations: The Federal rules restrict any use of the information to criminally investigate or prosecute any alcohol or drug abuse patient.[facility] CenterIn the event this information is protected by the Federal Confidentiality of Alcohol and Drug Abuse Patient Records regulations: The Federal rules restrict any use of the information to criminally investigate or prosecute any alcohol or drug abuse patient.[facility] Center[facility] the event this information is protected by the Federal Confidentiality of Alcohol and Drug Abuse Patient Records regulations: The Federal rules restrict any use of the information to criminally investigate or prosecute any alcohol or drug abuse patient.[facility] Center[facility] the event this information is protected by the Federal Confidentiality of Alcohol and Drug Abuse Patient Records regulations: The Federal rules restrict any use of the information to criminally investigate or prosecute any alcohol or drug abuse patient.[facility] CenterIn the event this information is protected by the Federal Confidentiality of Alcohol and Drug Abuse Patient Records regulations: The Federal rules restrict any use of the information to criminally investigate or prosecute any alcohol or drug abuse patient.[facility] CenterIn the event this information is protected by the Federal Confidentiality of Alcohol and Drug Abuse Patient Records regulations: The Federal rules restrict any use of the information to criminally investigate or prosecute any alcohol or drug abuse patient.[facility] CenterIn the event this information is protected by the Federal Confidentiality of Alcohol and Drug Abuse Patient Records regulations: The Federal rules restrict any use of the information to criminally investigate or prosecute any alcohol or drug abuse patient.[facility] CenterIn the event this information is protected by the Federal Confidentiality of Alcohol and Drug Abuse Patient Records regulations: The Federal rules restrict any use of the information to criminally investigate or prosecute any alcohol or drug abuse patient.[facility] Reason for Visit (unrecogniz ed section and content) Reason Comments Refill Request Reason Comments New Reason Comments Primary Open Angle Glaucoma Follow Up Reason Comments Medication Problem Reason Onset Date Comments Refill Request 03/10/2024 Reason Comments Primary Open Angle Glaucoma Follow Up Reason Comments Consult to Equipboard Reason Comments Follow Up Reason Comments Primary Open Angle Glaucoma FOLLOW UP Pseudophakia Follow Up Reason Comments Conjunctivitis Evaluation Reason Comments follow up from 07/2025 Reason Comments Primary Open Angle Glaucoma Follow Up Se radha stage ou Pseudophakia Care Teams (unrecognized sec tion and content) Ship'S Officer Relationship Specialty Start Date End Date Manuel Logan MD [address] [place] [address] PCP - General Family Medicine 12/08/18 Tristan Montana MD Specialty Brush Cutter Cardiology 07/15/16 Team Status: Active Member Role Status Dates Dr. Manuel Logan MD Family Provider Active Dr. Addi Mario MD Primary Care Provider Active Team Status: Inactive Member Role Status Dates Dr. Addi Mario MD Primary Care P yesica, Attending Provider, Referring Provider Active Team Status: [...] Status: Inactive Member Role Status Dates Dr. Adid Mario MD Primary Care Provider, Atten ding [...] Provider, Refer ring Provider Active Ailin Sharma DIRECTOR MEDICAL ECONOMICS, DIRECTOR MEDICAL ECONOMICS-C Attending Provider Active Team Status: Inactive Member Role Status Dates Dr. Addi Mario MD Primary Care Provider Active Dr. uJlia Bishop MD Emergency Provider Active Team Status: [...] Miranda MD Attending Provider, Emergency Provider Active Ship'S Officer Relationship Specialty Start Date End Date Manuel Logan MD [address] [place] [place] [address] PCP - General Family Medicine 12/08/18 Tristan Montana MD Specialty Brush Cutter Cardiology 07/15/16 Ship'S Officer Relationship Specialty Start Date End Date Manuel Logan MD [address] [place], [place] [id number] PCP - General Family Medicine 12/08/18 Tristan Montana MD Specialty Brush Cutter Cardiology 07/15/16 Ship'S Officer Relationship Specialty Start Date End Date Manuel Logan MD [address] [place] [address] PCP - General Family Medicine 12/08/18 Tristan Montana MD Specialty Brush Cutter Cardiology 07/15/16 Ship'S Officer Relationship Specialty Start Date End Date Manuel Logan MD [address] [place] [address] PCP - General Family Medicine 12/08/18 Tristan Montana MD Specialty Brush Cutter Cardiology 07/15/16 Team Status: Inactive Member Role [...] Provider, Refer ring Provider Active Moreno Power DIRECTOR MEDICAL ECONOMICS, DIRECTOR MEDICAL ECONOMICS-C Attending Provider Active Team Status: Active Member [...] MD Admit Provider, Attending Provid er Active Ship'S Officer Relationship Specialty Start Date End Date Manuel Logan MD [address] [place], [place] [id number] PCP - General Family Medicine 12/08/18 Tristan Montana MD Specialty Brush Cutter Cardiology 07/15/16 Ship'S Officer Relationship Specialty Start Date End Date Manuel Logan MD [address] [place], [place] [id number] PCP - General Family Medicine 12/08/18 Tristan Montana MD Specialty Brush Cutter Cardiology 07/15/16 Ship'S Officer Relationship Specialty Start Date End Date Manuel Logan MD [address] [place], [place] [address] PCP - General Family Medicine 12/08/18 Tristan Montana MD Specialty Brush Cutter Cardiology 07/15/16 Ship'S Officer Relationship Specialty Start Date End Date Manuel Logan MD [address] [place], [place] [id number] PCP - General Family Medicine 12/08/18 Tristan Montana MD Specialty Brush Cutter Cardiology 07/15/16 Ship'S Officer Relationship Specialty Start Date End Date Manuel Logan MD [address] [place] [address] PCP - General Family Medicine 12/08/18 Tristna Montana MD Specialty Brush Cutter Cardiology 07/15/16 Ship'S Officer Relationship Specialty Start Date End Date Manuel Logan MD [address] [place] [address] PCP - General Family Medicine 12/08/18 Tristan Montana MD Specialty Brush Cutter Cardiology 07/15/16 Ship'S Officer Relationship Specialty Start Date End Date Manuel Logan MD [address] [place], [place] [id number] PCP - General Family Medicine 12/08/18 Tristan Montana MD Specialty Brush Cutter Cardiology 07/15/16 Ship'S Officer Relationship Specialty Start Date End Date Manuel Logan MD [address] [place] [address] PCP - General Family Medicine 12/08/18 Tristan Montana MD Specialty Brush Cutter Cardiology 07/15/16 Team Status: Active Member Role Status Dates Dr. Addi Mario MD Primary Care Provider Active Team Status: Inactive Member Role Status Dates Dr. Addi Mario MD Primary Care Provider Active Start: August 09, 2024 End: August 09, 2024 Dr. Addi Mario MD Referring Provider Active Start: August 09, 2024 End: August 09, 2024 Souleymane LUEVANO, PA Attending Provider Active Sta rt: August [...] 23, 2024 End: October 23, 2024 Ava Cardozo PA, PA Attending Provider Active Start: October 23, [...] 2024 End: December 14, 2024 Ailin Sharma DIRECTOR MEDICAL ECONOMICS, DIRECTOR MEDICAL ECONOMICS-C Attending Provider Active Start: December 14, 2024 [...] 2025 End: February 19, 2025 Gretchen Nguyen DIRECTOR MEDICAL ECONOMICS, DIRECTOR MEDICAL ECONOMICS-C Attending Provider Active Start: February 19, 2025 End: February 19, 2025 Team Status: Active Member Role Status Dates Dr. Addi Mario MD Primary Care Provider Active Start: March 05, 2025 Gretchen Nguyen DIRECTOR MEDICAL ECONOMICS, DIRECTOR MEDICAL ECONOMICS-C Attending Provider Active Start: March 05, 2025 Gretchen Nguyen DIRECTOR MEDICAL ECONOMICS, DIRECTOR MEDICAL ECONOMICS-C Referring Provider Active Start: March 05, 2025 Team Status: Active Member Role Status Dates Dr. Addi Mario MD Primary Care Provider Active Start: March 07, 2025 Gretchen Nguyen DIRECTOR MEDICAL ECONOMICS, DIRECTOR MEDICAL ECONOMICS-C Attending Provider Active Start: March 07, 2025 Gretchen Nguyen DIRECTOR MEDICAL ECONOMICS, DIRECTOR MEDICAL ECONOMICS-C Referring Provider Active Start: March 07, 2025 [...] 2025 End: March 07, 2025 Gretchen Nguyen DIRECTOR MEDICAL ECONOMICS, DIRECTOR MEDICAL ECONOMICS-C Attending Provider Active Start: March 07, 2025 End: March 07, 2025 Gretchen Nguyen DIRECTOR MEDICAL ECONOMICS, DIRECTOR MEDICAL ECONOMICS-C Referring Provider Active Start: March 07, 2025 End: March 07, 2025 Team Status: Active Member Role/Relationship Status Dates Dr. Addi Mario MD Primary Care Provider Active Team Status: Inactive Member Role/Relationship Status Dates Dr. Addi Mario MD Primary Care Provider Active Start: November 30, 2024 End: November 30, 2024 Dr. Addi Mario MD Attending Provider Active Start: November 30, 2024 End: November 30, 2024 Dr. Addi Mario MD Referring Provider Active Start: November 30, 2024 End: November 30, 2024 Team Status: Inactive Member Role/Relationship Status Dates Dr. Addi Mario MD Primary Care Provider Active Start: December 14, 2024 End: December 14, 2024 Dr. Addi Mario MD Referring Provider Active Start: December 14, 2024 End: December 14, 2024 Ailin Sharma DIRECTOR MEDICAL ECONOMICS, DIRECTOR MEDICAL ECONOMICS-C Attending Provider Active Start: December 14, 2024 End: December 14, 2024 Team Status: Inactive Member Role/Relationship Status Dates Dr. Addi Mario MD Primary Care Provider Active Start: December 27, 2024 End: December 27, 2024 Dr. Addi Mario MD Attending Provider Active Start: December 27, 2024 End: December 27, 2024 Dr. Addi Mario MD Referring Provider Active Start: December 27, 2024 End: December 27, 2024 Team Status: Inactive Member Role/Relationship Status Dates Dr. Addi Mario MD Primary Care Provider Active Start: January 02, 2025 End: January 02, 2025 Dr. Addi Mario MD Attending Provider Active Start: January 02, 2025 End: January 02, 2025 Dr. Addi Mario MD Referring Provider Active Start: January 02, 2025 End: January 02, 2025 Team Status: Inactive Member Role/Relationship Status Dates Dr. Addi Mario MD Primary Care Provider Active Start: February 14, 2025 End: February 14, 2025 Dr. Addi Mario MD Attending Provider Active Start: February 14, 2025 End: February 14, 2025 Dr. Addi Mario MD Referring Provider Active Start: February 14, 2025 End: February 14, 2025 Team Status: Inactive Member Role/Relationship Status Dates Dr. Addi Mario MD Primary Care Provider Active Start: February 14, 2025 End: February 14, 2025 Dr. Addi Mario MD Attending Provider Active Start: February 14, 2025 End: February 14, 2025 Dr. Addi Mario MD Referring Provider Active Start: February 14, 2025 End: February 14, 2025 Team Status: Inactive Member Role/Relationship Status Dates Dr. Addi Mario MD Primary Care Provider Active Start: February 19, 2025 End: February 19, 2025 Dr. Addi Mario MD Referring Provider Active Start: February 19, 2025 End: February 19, 2025 Gretchen Nguyen DIRECTOR MEDICAL ECONOMICS, DIRECTOR MEDICAL ECONOMICS-C Attending Provider Active Start: February 19, 2025 End: February 19, 2025 Team Status: Active Member Role/Relationship Status Dates Dr. Addi Mario MD Primary Care Provider Active Start: March 05, 2025 Gretchen Nguyen DIRECTOR MEDICAL ECONOMICS, DIRECTOR MEDICAL ECONOMICS-C Attending Provider Active Start: March 05, 2025 Gretchen Nguyen DIRECTOR MEDICAL ECONOMICS, DIRECTOR MEDICAL ECONOMICS-C Referring Provider Active Start: March 05, 2025 Team Status: Active Member Role/Relationship Status Dates Dr. Addi Mario MD Primary Care Provider Active Start: March 05, 2025 Dr. Woody Montana MD Attending Provider Activ e Start: March 05, 2025 Gretchen Nguyen DIRECTOR MEDICAL ECONOMICS, DIRECTOR MEDICAL ECONOMICS-C Referring Provider Active Start: March 05, 2025 Team Status: Inactive Member Role/Relationship Status Dates Dr. Addi Mario MD Primary Care Provider Active Start: March 07, 2025 End: March 07, 2025 Gretchen Nguyen DIRECTOR MEDICAL ECONOMICS, DIRECTOR MEDICAL ECONOMICS-C Attending Provider Active Start: March 07, 2025 End: March 07, 2025 Gretchen Nguyen DIRECTOR MEDICAL ECONOMICS, DIRECTOR MEDICAL ECONOMICS-C Referring Provider Active Start: March 07, 2025 End: March 07, 2025 Team Status: Inactive Member Role/Relationship Status Dates Dr. Addi Mario MD Primary Care Provider Active Start: March 10, 2025 End: March 10, 2025 Dr. Rolan Peña DO Attending Provider Active Start : March 10, 2025 End: March 10, 2025 Dr. Rolan Peña DO Emergency Provider Active Start : March 10, 2025 End: March 10, 2025 Team Status: Active Member Role/Relationship Status Dates Dr. Addi Mario MD Primary Care Provider Active Start: March 14, 2025 Gretchen Nguyen DIRECTOR MEDICAL ECONOMICS, DIRECTOR MEDICAL ECONOMICS-C Attending Provider Active Start: March 14, 2025 Gretchen Nguyen DIRECTOR MEDICAL ECONOMICS, DIRECTOR MEDICAL ECONOMICS-C Referring Provider Active Start: March 14, 2025 Team Status: Inactive Member Role/Relationship Status Dates Dr. Addi Mario MD Primary Care Provider Active Start: March 17, 2025 End: March 17, 2025 Dr. Hai Rand DO Emergency Provider Active Start: March 17, 2025 End: March 17, 2025 (unrecognized sect ion and content) No Status Records FoundNo Status Records Found INFORMATION SOURCE (unrecogn ized section and content) DATE CREATED AUTHOR 01/24/2025 [facility] DATE CREATED AUTHOR AUTHOR'S ORGANIZ ATION 03/17/2025 [facility] FOR RECORDS PERTAINING TO PATIENTS WHO [...] BE BASED ON THE PRIMARY CLINICAL RECORDS. [employer] provides no warranty or guarantee of the accuracy or completeness of information in this document.
--- NOTE | 2025-03-17 14:21 | EX.ED.VIS.UR ---
HPI HPI - URI History of Present Illness Chief Complaint: Nosebleed Detail of Chief Complaint: Recurrent right-sided nosebleed. Informant: patient Onset/Context/Timing Onset: Today and Hours Context: Gradual Onset Timing: Intermittent Current Severity: Mild Maximum Severity: Mild Narrative Narrative: 89-year-old male history of A-fib on Eliquis. Over the last several weeks and prior history of recurrent nosebleeds. He has seen ENT office in the last 1 to 2 weeks. He had a cauterization procedure done. Last night earlier this morning he started having recurrent right-sided nosebleed. Came in the emergency department had an anterior nasal pack placed. It was doing well this afternoon he started having bleeding around the pack again. He denies any other complaints. Denies any nasal trauma. Prior similar symptoms: Yes Recent Illness/Hospitalization: No ROS ROS ED ROS Narrative Denies recent illness. Nosebleed. Constitutional Constitutional ED: Denies chills or fever(s) Eyes Eyes: Denies blurry vision ENT ENT ED: Denies ear pain Cardiovascular Cardiovascular: Denies chest pain Respiratory/Chest Respiratory/Chest: Denies cough or dyspnea Gastrointestinal Gastrointestinal: Denies abdominal pain Genitourinary Genitourinary ED: Denies dysuria Musculoskeletal Musculoskeletal: Denies arthralgias Integumentary Denies abscess Neurologic Neurologic: Denies headache(s) Psychiatric Psychiatric: Denies anxiety Endocrine Endocrinology: Denies cold intolerance Hematologic/Lymphatic Hematologic/Lymphatic: Reports easy bleeding; Denies lymphadenopathy Allergic/Immunologic Allergic/Immunologic ED: Denies mouth swelling, tongue swelling or urticaria [facility] Medical History Bradycardia Immunity status testing Sore throat Exposure to COVID-19 virus Swallowing disorder Perianal dermatitis CHF (congestive heart failure) Ureteral calculi Cardiomyopathy Mitral regurgitation Rheumatoid arthritis Non-smoker Hypertension Atrial fibrillation Migraines Sepsis Non-STEMI (non-ST elevated myocardial infarction) Paroxysmal atrial fibrillation Extensor tenosynovitis of right wrist Advanced directives, counseling/discussion Anemia Left facial swelling Aortic stenosis New onset atrial fibrillation Vitamin D deficiency Obesity Restrictive airway disease Asthma Dermatitis Memory impairment Right foot pain Dizziness History of skin cancer Liver disease History of pneumonia Rheumatoid arthritis Seasonal allergies Fracture of triquetrum of right wrist Fracture of triquetrum of left wrist Closed vertical fracture of left patella History of colon polyps Orthostatic hypotension Iron deficiency anemia Sinus bradycardia Glaucoma Physical debility Degenerative disc disease, cervical Hyponatremia Thrombocytopenia Multiple fractures Fall Anginal equivalent Nonrheumatic aortic valve stenosis Psoriasis Osteoarthritis BPH (benign prostatic hyperplasia) Essential hypertension Atherosclerosis of coronary 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 Instructions: Nosebleeds. cholecalciferol (vitamin D3) 50 50 mcg PO DAILY Supplement 11/19/20 12/01/23 History mcg (2,000 unit) tablet Disability Placard #1 ea 12/01/21 Unknown Rx Arthritis Compound 1 click topical DAILY PRN Pain #60 02/08/22 Unknown Rx CLICKS albuterol sulfate 90 mcg/actuation 2 puff inhalation Q4H PRN Asthma 04/28/23 Unknown Rx aerosol inhaler (Ventolin HFA) #8.5 grams nebulizer and compressor (Portable #1 ea 04/30/23 Unknown Rx Nebulizer System) [id number] acid 0.4 1 tab PO DAILY supplement 12/02/23 12/01/23 History mg-lycopene 300 mcg-lutein 250 mcg tablet (Centrum Silver) netarsudil 0.02 %-latanoprost 1 drp ophthalmic (eye) QHS Eye 12/02/23 12/02/23 History 0.005 % eye drops (Rocklatan) drops acetaminophen 500 mg tablet 1,000 mg (2 x 500 mg) PO Q6H PRN 12/30/23 Unknown Rx PRN Pain Score 1-10 #0 tabs albuterol sulfate 2.5 mg/3 mL 2.5 mg (3 mL) inhalation Q4-6H PRN 01/04/24 Unknown Rx (0.083 %) solution for nebulization shortness of breath or wheezing #90 mL cetirizine 10 mg tablet 10 mg PO DAILY PRN 01/23/24 Unknown History sennosides 8.6 mg-docusate sodium 1 tab-cap PO QHS 01/23/24 Unknown History 50 mg tablet (Senokot-S) nitroglycerin 0.4 mg sublingual 0.4 mg sublingual Q5-15M PRN chest 05/01/24 Unknown Rx tablet pain #25 tabs finasteride 5 mg tablet 5 mg PO DAILY BPH #90 tabs 09/06/24 Unknown Rx famotidine 20 mg tablet 20 mg PO DAILY GERD #90 tabs 09/10/24 Unknown Rx atorvastatin 20 mg tablet 20 mg PO QHS cholesterol #90 tabs 10/22/24 Unknown Rx potassium chloride 10 mEq 10 meq PO QDAY With Lasix #90 tabs 11/15/24 Unknown Rx tablet,extended release(part/cryst) brinzolamide 1 %-brimonidine 0.2 % 1 drp ophthalmic (eye) DAILY 12/14/24 Unknown History eye drops,suspension (Simbrinza) budesonide-formoterol HFA 160 2 puff inhalation BID Asthma #1 ea 12/14/24 Unknown Rx mcg-4.5 mcg/actuation aerosol inhaler (Symbicort) ferrous sulfate 325 mg (65 mg 325 mg PO QODAY Supplement #90 tabs 02/05/25 Unknown Rx iron) tablet ursodiol 500 mg tablet 500 mg PO BID #180 tabs 02/14/25 Unknown Rx apixaban 5 mg tablet (Eliquis) 5 mg PO BID #60 tabs 02/20/25 Unknown Rx cephalexin 500 mg capsule 500 mg PO Q12 5 days #10 CAPSULES 03/17/25 Unknown Rx furosemide 40 mg tablet 40 mg PO DAILY 03/17/25 Unknown History Allergy/AdvReac Type Severity Reaction Status Date / Time metoprolol (From Lopressor) Allergy Intermediate Shortness Verified 03/17/25 13:54 of breath bee venom protein (honey Allergy Mild Swelling Verified 03/17/25 13:54 bee) (bee sting) Penicillins Allergy Rash Verified 03/17/25 13:54 Family History Father Hypertension Grandmother Hypertension Other Alcoholism Liver disease Surgical History History of coronary artery stent placement History of colon resection History of cataract extraction Presence of stent in coronary artery History of appendectomy History of partial colectomy (~2003) Social History household members: spouse Smoking Status: Never smoker alcohol intake: current alcohol intake frequency: holidays/special occasions only substance use type: does not use caffeine: No what type of physical activity do you participate in: weight training EXAM Physical Exam Narrative Exam Narrative: 89-year-old male sitting upright in bed. Vital signs stable afebrile. No acute distress. at bedside. H EENT exam given reactive light. He has a anterior balloon nasal pack in his right naris. There is a small amount of blood dripping from his nose. Left naris is no active bleeding. Posterior pharynx is no blood. Moist membranes. Lungs clear to auscultation. Heart rate about 60. A-fib. 4/6 systolic ejection murmur. History of a murmur. Chest wall nontender. Abdomen soft nontender. Moving all 4 extremities. Nontender. Back nontender. Neurologically he is awake and alert. He is answering questions and following commands. Const Vital Signs: 03/17/25 13:53 Temperature 98.3 F Temperature Source Oral Pulse Rate 62 Respiratory Rate 18 Blood Pressure 149/82 H Blood Pressure Mean 104 Pulse Ox 100 Positive well nourished and well developed; Negative for cachectic or contractures General Appearance ED: well developed and NAD; Negative for cachectic, contractures, cyanotic, diaphoretic or pallor Nutritional Appearance: Negative for cachectic HEENT Reports moist mucous membranes normocephalic Throat: posterior oropharynx normal Eyes PERRL and EOMs intact bilaterally Neck no lymphadenopathy, supple, no meningeal signs and no JVD Resp normal respiratory effort and clear to auscultation bilaterally Cardio S1 normal heart sound and S2 normal heart sound; Negative for no murmurs Cardio Narrative: A-fib. Rate about 60. For her 6 systolic ejection murmur. Rate: Negative for regular rate Rhythm: abnormal rhythm; Negative for regular rhythm GI non-tender, non-distended and no masses Palpation: soft; Negative for tender, guarding or mass Back/Spine no CVA tenderness and normal ROM General Back: Negative for CVA tenderness Cervical Spine: Negative for cervical spine tenderness Thoracic Spine / Upper Back: Negative for thoracic spinal tenderness Lumbar Spine / Lower Back: Negative for lumbar spinal tenderness Sacrum: Negative for tenderness Extremity normal to inspection and full ROM General Extremety ED: Negative for tenderness Neuro oriented x3 and CN's II-XII intact bilaterally Sensorium / Orientation: alert, oriented to person, oriented to place and oriented to time; Negative for orientation impaired, lethargic or stuporous Motor Exam: strength 5/5 throughout Psych mental status grossly normal Attitude: No agitated Mood & Affect: Negative for depressed, anxious or tearful Skin General Skin Exam: Negative for jaundice or pallor Lesions: no lesions Rashes: no rashes MDM MDM MDM Narrative Medical decision making narrative: 89-year-old male history of A-fib on Eliquis with recurrence right-sided nosebleed. Was packed earlier today. I remove the packing. Placed Afrin and Brigid solution right side of his nose. Most likely repack it. He has had recent labs his blood counts and platelets were unremarkable at that time. Patient had an anterior nosebleed on the right. I remove the packing that was in. I let cottonball soaked with both Brigid solution and Afrin in both sides of his nose for about 15 minutes. Bleeding currently resolved. I placed a Merisel nasal tampon in the right side of his nose. Currently the bleeding stopped. He will be ambulated and discharged to home. Packing in for 3 to 5 days. Follow-up with ENT. Open placed on antibiotic while the packing is in. History & Record Review Discussion w/independent historian: Patient and Family Additional record(s) reviewed:: Prior inpatient record, Prior outpatient record, Prior ED visit and Prior labs Discharge Plan Triage Chief Complaint: Nosebleed ED Provider: Denzel Chau Dx/Rx/DC Orders Clinical Impression: Anterior epistaxis, Chronic anticoagulation, History of atrial fibrillation Instructions: ED Epistaxis (Adult) Prescriptions: New cephalexin 500 mg capsule 500 mg PO Q12 5 Days Qty: 10 0RF No Action cholecalciferol (vitamin D3) 50 mcg (2,000 unit) tablet 50 mcg PO DAILY albuterol sulfate [Ventolin HFA] 90 mcg/actuation HFA aerosol inhaler 2 puff INHALATION Q4H PRN (Reason: Asthma) Qty: 8.5 2RF cetirizine 10 mg tablet 10 mg PO DAILY PRN sennosides-docusate sodium [Senokot-S] 8.6-50 mg tablet 1 tab-cap PO QHS albuterol sulfate 2.5 mg /3 mL (0.083 %) solution for nebulization 2.5 mg inhalation Q4-6H PRN (Reason: shortness of breath or wheezing) Qty: 90 3RF Simbrinza 1-0.2 % drops,suspension 1 drp ophthalmic (eye) DAILY budesonide-formoterol [Symbicort] 160-4.5 mcg/actuation HFA aerosol inhaler 2 puff inhalation BID Qty: 1 11RF Rx Instructions: administer with spacer, rinse mouth after each use potassium chloride 10 mEq tablet,ER particles/crystals 10 meq PO QDAY Qty: 90 3RF ursodiol 500 mg tablet 500 mg PO BID Qty: 180 1RF aspirin 81 MG tablet 81 mg PO DAILY@0800 Centrum Silver 0.4 mg-300 mcg- 250 mcg tablet 1 tab PO DAILY Rocklatan 0.02-0.005 % drops 1 drp ophthalmic (eye) QHS Rx Instructions: INSTILL 1 DROP INTO EACH EYE AT BEDTIME acetaminophen 500 mg Tablet 1,000 mg PO Q6H PRN PRN (Reason: Pain Score 1-10) Qty: 0 0RF furosemide 40 mg tablet 40 mg PO DAILY (DME) Disability Placard See Rx Instructions .Route .MEDSUPPLY Qty: 1 0RF Rx Instructions: Expires 12/01/2026 Arthritis Compound 1 click TOPICAL DAILY PRN (Reason: Pain) Qty: 60 1RF Rx Instructions: Diclofenac 3%, Lidocaine 3%, Baclofen 2% 1 click=o.25g 1 click topical daily 60 click tube (DME) nebulizer and compressor [Portable Nebulizer System] Device See Rx Instructions .Route Qty: 1 0RF Rx Instructions: As directed nitroglycerin 0.4 mg tablet, sublingual 0.4 mg SUBLINGUAL Q5-15M PRN (Reason: chest pain) Qty: 25 3RF finasteride 5 mg tablet 5 mg PO DAILY Qty: 90 3RF famotidine 20 mg tablet 20 mg PO DAILY Qty: 90 3RF atorvastatin 20 mg tablet 20 mg PO QHS Qty: 90 3RF ferrous sulfate 325 mg (65 mg iron) tablet 325 mg PO QODAY Qty: 90 2RF Eliquis 5 mg tablet 5 mg PO BID Qty: 60 11RF Primary Care Provider: Addi Mario Referrals: Addi Mario MD [Primary Care Provider] - Arian Rainey MD [Med Staff - Active Staff] - As soon as possible Activity Restrictions/Additional Instructions: Hold your Eliquis. No aspirin at this time either. Call and follow-up with Dr. Arian Rainey for further evaluation. Packing can come out in 3 days. If rebleeds and unable to stop with 30 minutes of pinching your nose direct pressure return. Print Language: [place] Disposition Disposition: Home, Self Care
[2025-03-17] MEDS: Oxymetazoline 0.05% 1 SPRAY SPRAY.BTL 2 SPRAY NASAL (14:31)
[2025-03-17] MEDS: Mixture 30 ML Bottle TOPICAL (14:31)
--- NOTE | 2025-03-17 15:18 | ED.RN ---
pt. ambulated an entire loop around deparment. No bleeding noted, dr diamond notified
[2025-03-17 15:24] VITALS: BP 149/82; PULSE 62; RESP 18; TEMP 36.8; O2SAT 100
== END 2025-03-17 15:24 | disposition home or self-care (01) ==
PROVIDERS: Emergency Provider Emergency Medicine; PCP Internal Medicine; Visit Provider Emergency Medicine
DX: R04.0 Epistaxis (principal); I11.0 Hypertensive heart disease with heart failure; I50.9 Heart failure, unspecified; I48.91 Unspecified atrial fibrillation; I42.9 Cardiomyopathy, unspecified; I25.10 Atherosclerotic heart disease of native coronary artery without angina pectoris; I25.2 Old myocardial infarction; Z79.01 Long term (current) use of anticoagulants; Z95.5 Presence of coronary angioplasty implant and graft
CPT/HCPCS: 30901; 99282

== ENCOUNTER → 2025-04-02 | Outpatient (CLI) | payer MEDICARE, SELFPAY ==
--- NOTE | 2025-04-02 15:55 | ECHOD_ITS ---
Reason For Study Reason For Study: AFIB/FLUTTER Procedure This was a 2D Doppler, Color Flow transthoracic echocardiogram. Exam performed in department. Left Ventricle Normal LV size. Mild concentric left ventricular hypertrophy. The estimated ejection fraction is 55 %. At least stage I diastolic dysfunction. Right Ventricle Normal RV size. Normal systolic function. Atria There is moderate biatrial dilatation. Mitral Valve Moderate mitral annular calcification. Moderate (2+) mitral valve insufficiency. Tricuspid Valve Normal tricuspid valve. Moderate (2+) tricuspid valve insufficiency. Pulmonary artery systolic pressure is 45 mmHg. Aortic Valve Trisinus/trileaflet aortic valve. Moderate diffuse aortic valve calcification. Moderate aortic stenosis. Mild (1+) aortic valve insufficiency. Pulmonic Valve Normal pulmonic valve. Mild (1+) pulmonic valve insufficiency. Great Vessels Normal sized aortic root. MMode/2D Measurements & Calculations RVDd: 3.9 cm LVOT diam: 2.5 cm Ao root diam: 3.7 cm LVOT area: 5.0 cm2 LAV(MOD-bp): 135.4 ml LVAd ap4: 35.2 cm2 LVAd ap2: 34.4 cm2 LAV(MOD-bp) Indexed: 60.5 ml/m2 LVLd ap4: 8.2 cm LVLd ap2: 8.3 cm LAV(MOD-sp2): 126.2 ml EDV(MOD-sp4): 125.0 ml EDV(MOD-sp2): 120.5 ml LAV(MOD-sp4): 121.5 ml EDV(sp4-el): 128.4 ml EDV(sp2-el): 121.7 ml LVAs ap4: 20.7 cm2 LVAs ap2: 22.2 cm2 LVLs ap4: 6.7 cm LVLs ap2: 7.3 cm ESV(MOD-sp4): 54.4 ml ESV(MOD-sp2): 56.2 ml ESV(sp4-el): 54.4 ml ESV(sp2-el): 57.2 ml EF(MOD-sp4): 56.4 % EF(MOD-sp2): 53.4 % EF(sp4-el): 57.6 % SV(MOD-sp4): 70.5 ml SV(MOD-sp2): 64.3 ml SV(sp4-el): 74.0 ml SI(MOD-sp4): 31.5 ml/m2 SI(MOD-sp2): 28.7 ml/m2 LA A4 area: 33.3 cm2 LA dimension(2D): 5.4 cm RA A4 area: 28.4 cm2 TAPSE: 1.8 cm Doppler Measurements & Calculations MV E max nick: 130.6 cm/sec Ao V2 max: 364.5 cm/sec LV V1 max: 72.8 cm/sec Ao max P.5 mmHg LV V1 max P.1 mmHg Ao V2 mean: 261.6 cm/sec LV V1 mean P.2 mmHg Ao mean P.6 mmHg LV V1 mean: 51.9 cm/sec Ao V2 VTI: 77.6 cm LV V1 VTI: 16.2 cm AV (velocity ratio): 0.21 SHRUTHI(I,D): 1.0 cm2 SHRUTHI(V,D): 0.99 cm2 MR max nick: 578.7 cm/sec SV(LVOT): 80.6 ml PA V2 max: 82.0 cm/sec MR max P.0 mmHg PA V2 mean: 51.2 cm/sec MR mean nick: 466.6 cm/sec PA V2 VTI: 15.8 cm MR mean P.8 mmHg MR VTI: 198.4 cm TR max nick: 305.2 cm/sec TR max P.3 mmHg ECHO/Echo Complete Interpretation Summary Estimated LVEF 55%. Stage I diastolic dysfunction. Moderate mitral valve regurgitation. Moderate tricuspid valve regurgitation. RVSP estimated at 45 mmHg. Moderate aortic valve stenosis with mild regurgitation. Mean peak gradient 31 m mHg. Moderate biatrial dilatation. Ordering Physician: aDsh Schmidt Referring Physician: Addi Mario Performed By: Marlene Krause RDCS, RVT
== END | disposition home or self-care (01) ==
PROVIDERS: PCP Internal Medicine; Referring Provider Internal Medicine Cardiovascular Disease; Visit Provider Internal Medicine Cardiovascular Disease
DX: I48.20 Chronic atrial fibrillation, unspecified (principal)
CPT/HCPCS: 93306

== ENCOUNTER → 2025-05-08 | Outpatient (CLI) | payer MEDICARE, SELFPAY ==
[2025-05-08 12:24] LABS: Hematocrit 37.0 % (40-54); Hemoglobin 11.8 g/dL (13.0-16.5); Mean Corp Hgb Conc 31.9 g/dL (32-36); Mean Corpuscular Volume 96.4 fL (80-94); Mean Platelet Vol. 11.2 fl (6.2-12.0); Platelet Count 114 K/mm3 (150-450); RBC Distribution Width CV 15.2 % (11.6-14.6); RBC Distribution Width SD 54.4 fl (35.1-43.9); Red Blood Count 3.84 M/mm3 (4.6-6.2); White Blood Count 6.7 K/mm3 (4.4-11.0)
[2025-05-08 13:22] LABS: AST(SGOT) 23 U/L (<=37); Alanine Aminotransfer ALT/SGPT 11 U/L (<=46); Albumin, Serum 3.5 g/dL (3.4-4.8); Alkaline Phosphatase 74 U/L (40-129); Anion Gap 9 (5-15); BUN 17 mg/dL (4-19); BUN/Creat Ratio 16.2 RATIO (10-20); Calcium,Total 9.2 mg/dL (7.6-11.0); Carbon Dioxide 26.6 mmol/L (21.0-32.0); Chloride 104 mmol/L (98-108); Globulin 3.8 g/dL (2.2-4.2); Glucose 95 mg/dL (70-99); Potassium 4.3 mmol/L (3.3-5.1); Pro- Brain NATRIURETIC PEPTIDE 3073 pg/mL (<=1800)
== END | disposition home or self-care (01) ==
LOC: LAB 11:45
PROVIDERS: PCP Internal Medicine; Referring Provider Physician Assistant; Visit Provider Physician Assistant
DX: R00.1 Bradycardia, unspecified (principal); I50.9 Heart failure, unspecified
CPT/HCPCS: 36415; 80053; 83880; 84443; 85027

== ENCOUNTER 2025-05-20 12:41 | Emergency (ER) | payer MEDICARE, SELFPAY ==
[2025-05-20] VITALS (7 sets, daily range): BP systolic 122–167; BP diastolic 74–107; PULSE 49–87; RESP 16–20; TEMP 36.6–36.9; O2SAT 98–100; BMI 29.6
--- NOTE | 2025-05-20 12:44 | EKG12_ITS ---
Test Reason : Blood Pressure : */* mmHG Vent. Rate : 52 BPM Atrial Rate : * BPM P-R Int : * ms QRS Dur : 88 ms QT Int : 462 ms P-R-T Axes : * -33 42 degrees QTcB Int : 429 ms Atrial fibrillation with slow ventricular response Left axis deviation Abnormal ECG Confirmed by Dash Schmidt ([id number]), editor managing director AN KWON ([id number]) on 05/21/2025 10:58:50 AM Referred By: Confirmed By: Dash Schmidt
--- NOTE | 2025-05-20 12:44 | CT_ITS ---
PROCEDURE: STROKE BRAIN/HEAD WITHOUT CONT N/A REASON FOR EXAM: NEURO DEFICIT, ACUTE, STROKE SUSPECTED TECHNIQUE: Procedure Code: CTBR.ST Modality: CT Procedure: STROKE BRAIN/HEAD WITHOUT CONT Coronal and Sagittal reconstruction series were provided. One or more dose reduction techniques were used (e.g., Automated exposure control, adjustment of the mA and/or kV according to patient size, use of iterative reconstruction technique. RADIATION DOSE SUMMARY: CTDlvol: 45 mGy DLP: 846 mGycm COMPARISON: December 02, 2023 FINDINGS: Brain: There is no evidence of hemorrhage, acute ischemia or mass. No extra- axial fluid collection, midline shift or mass effect. Low-density is seen in the periventricular white matter and deep white matter of the frontal and parietal lobes. CSF Spaces: Mild generalized cerebral atrophy Sinuses/Mastoids: Clear Bones: No fracture CT/STROKE Brain/Head without Cont IMPRESSION: 1. No evidence of intracranial hemorrhage or acute ischemia. 2. Changes of chronic microvascular ischemia and volume loss. The findings and impression were called directly to Dr. Tanner at 12:58 PM EST Reading Location: [id number]
--- NOTE | 2025-05-20 12:44 | RAD_ITS ---
PROCEDURE: CHEST 1 VIEW 05/20/2025 REASON FOR EXAM: NEURO DEFICIT, ACUTE, STROKE SUSPECTED TECHNIQUE: Frontal view of the chest. COMPARISON: 12/02/2023 FINDINGS: Heart: Grossly similar mild cardiomegaly possibly exacerbated by portable technique and low lung volumes Mediastinum: Atherosclerosis. Mild central vascular prominence. Lungs/pleura: Grossly similar mild LEFT basilar airspace disease favorable for atelectasis/scarring. Mild hypoinflation. Similar trace to small LEFT [id number] pleural versus chronic pleural thickening. No sizeable pleural effusion or visible pneumothorax. Bones: Unremarkable. Lines and support devices: None. Other: None. RAD/Chest 1 View IMPRESSION: 1. Slight hypoinflation without convincing or visible acute cardiopulmonary fin dings 2. Additional description as above. Reading Location: [id number]
--- NOTE | 2025-05-20 12:55 | CT_ITS ---
PROCEDURE: STROKE CTA HEAD AND NECK W/CON 05/20/2025 REASON FOR EXAM: STROKE TECHNIQUE: Procedure Code: CTCTA.ST.HN Modality: CT Procedure: STROKE CTA HEAD AND NECK W/CON Multiplanar Sagittal and Coronal images were obtained. 3D post processing was performed CONTRAST: Isovue 370 VOLUME: 100 mL One or more dose reduction techniques were used (e.g., Automated exposure control, adjustment of the mA and/or kV according to patient size, use of iterative reconstruction technique). RADIATION DOSE SUMMARY: CTDlvol: 67 mGy DLP: 721 mGycm COMPARISON: Head CT of the same day FINDINGS: Aortic Arch: Mild atherosclerosis Brachiocephalic and Subclavians: Mild atherosclerotic plaque without significant stenosis. RIGHT Carotid: Right CCA: Minimal atherosclerotic plaque near the origin. Atherosclerotic plaque of the carotid bulb. Right ICA: Atherosclerotic plaque of the origin, and to a lesser extent of the cavernous and supraclinoid portions. Maximum stenosis (NASCET): Less than 50 % Right ECA: Unremarkable. LEFT Carotid: Left CCA: Minimal atherosclerotic plaque near the origin. Atherosclerotic plaque of the carotid bulb. Left ICA: Atherosclerotic plaque of the origin, and to a lesser extent the cavernous and supraclinoid portions. Maximum stenosis (NASCET): Less than 50 % Left ECA: Unremarkable Vertebrals: Right dominant RIGHT Vertebral: Atherosclerotic plaque of the origin. Is not flow-limiting. LEFT Vertebral: Small caliber of the V4 segment likely filling retrograde. Minimal amount of contrast in the V3 and V2 segments. No contrast seen in the V1 segment. Essentially shows high-grade thrombosis. Anatomy: Patent right posterior communicating artery. Aneurysm or avm: No intracranial aneurysms or large vascular malformations are identified. Anterior cerebral arteries: Unremarkable. Middle cerebral arteries: Unremarkable. Basilar artery: Unremarkable. Posterior cerebral arteries: Hypoplastic right P1 segment. Otherwise unremarkable. Other major branches of the posterior circulation: Unremarkable. Major venous structures: Unremarkable. Other findings: Neck: No lymphadenopathy. Lungs: Partially imaged pleural effusions. Bones: CT/STROKE CTA Head AND Neck W/Con IMPRESSION: 1. No evidence of large vessel occlusion at the MCAs. 2. 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 Minimal amount of retrograde filling. 3. Dominant right vertebral artery. Widely patent right vertebral and basilar artery. 4. Patent right posterior communicating artery. Reading Location: [id number]
--- NOTE | 2025-05-20 12:57 | EX.ED.DYSGE1 ---
HPI History of Present Illness Chief Complaint: Stroke Alert Narrative Narrative: Chief complaint and HPI: 89-year-old male with past medical history of CHF, atrial fibrillation on Eliquis, glaucoma, BPH, HLD presents for evaluation of strokelike symptoms. Patient arrived as a stroke alert. Patient states last known well was 2100 yesterday prior to falling asleep. He states he woke up today with right-sided facial droop and increased blurriness of the left eye. Patient states at baseline he has poor vision and depth perception secondary to his glaucoma. He states he has a home nurse that felt that he was slightly weaker on the right compared to the left however ever patient has not noticed this. He denies any headache, fever, chills, shortness of breath, chest pain abdominal pain, nausea, vomiting, difficulty speaking. Review of systems: See HPI Medications: As listed on the chart Allergies: As listed on the chart PFSH: Per chart Vital signs: As listed on the chart. Reviewed. Physical exam: Gen: A&O x3, NAD Head: Normocephalic, atraumatic Eyes: No sclera icterus, conjunctiva clear, PERRL, EOMI, no visual field deficit ENT: Moist mucous membranes, mild right sided facial droop Neck: Trachea midline, No JVD CV: Regular rate, irregular rhythm, no murmurs, no peripheral edema Resp: Lungs CTA BL, no w/r/c GI: Abd soft, non-distended, non-tender, no r/r/g Musc: Full ROM, no deformity, strength +5/5 in all extremities, no pronator drift, ataxia with [id number] testing bilaterally-patient states this is his baseline given his issues with depth perception, no ataxia with [id number] testing Skin: Warm, dry, intact Neuro: Alert, oriented, grossly intact, sensation intact, NIH 1 no dysarthria or aphasia Psych: Cooperative, appropriate mood and affect [facility] Medical History Bradycardia Immunity status testing Sore throat Exposure to COVID-19 virus Swallowing disorder Perianal dermatitis CHF (congestive heart failure) Ureteral calculi Cardiomyopathy Mitral regurgitation Rheumatoid arthritis Non-smoker Hypertension Atrial fibrillation Migraines Sepsis Non-STEMI (non-ST elevated myocardial infarction) Paroxysmal atrial fibrillation Extensor tenosynovitis of right wrist Advanced directives, counseling/discussion Anemia Left facial swelling Aortic stenosis New onset atrial fibrillation Vitamin D deficiency Obesity Restrictive airway disease Asthma Dermatitis Memory impairment Right foot pain Dizziness History of skin cancer Liver disease History of pneumonia Rheumatoid arthritis Seasonal allergies Fracture of triquetrum of right wrist Fracture of triquetrum of left wrist Closed vertical fracture of left patella History of colon polyps Orthostatic hypotension Iron deficiency anemia Sinus bradycardia Glaucoma Physical debility Degenerative disc disease, cervical Hyponatremia Thrombocytopenia Multiple fractures Fall Anginal equivalent Nonrheumatic aortic valve stenosis Psoriasis Osteoarthritis BPH (benign prostatic hyperplasia) Essential hypertension Atherosclerosis of coronary artery of [place] heart without angina pectoris Primary biliary cirrhosis Cholelithiasis without obstruction Hyperlipidemia Home Medications ?Medication ?Instructions ?Recorded ?Last Taken ?Type Disability Placard #1 ea 12/01/21 Unknown Rx albuterol sulfate 90 mcg/actuation 2 puff inhalation Q4H PRN Asthma 04/28/23 05/14/25 Rx aerosol inhaler (Ventolin HFA) #8.5 grams nebulizer and compressor (Portable #1 ea 04/30/23 Unknown Rx Nebulizer System) netarsudil 0.02 %-latanoprost 1 drp ophthalmic (eye) QHS Eye 12/02/23 05/19/25 History 0.005 % eye drops (Rocklatan) drops acetaminophen 500 mg tablet 1,000 mg (2 x 500 mg) PO Q6H PRN 12/30/23 Unknown Rx PRN Pain Score 1-10 #0 tabs sennosides 8.6 mg-docusate sodium 1 tab-cap PO DAILY 01/23/24 05/20/25 History 50 mg tablet (Senokot-S) nitroglycerin 0.4 mg sublingual 0.4 mg sublingual Q5-15M PRN chest 05/01/24 Unknown Rx tablet pain #25 tabs finasteride 5 mg tablet 5 mg PO DAILY BPH #90 tabs 09/06/24 Unknown Rx famotidine 20 mg tablet 20 mg PO DAILY GERD #90 tabs 09/10/24 Unknown Rx atorvastatin 20 mg tablet 20 mg PO QHS cholesterol #90 tabs 10/22/24 05/19/25 Rx potassium chloride 10 mEq 10 meq PO QDAY With Lasix #90 tabs 11/15/24 Unknown Rx tablet,extended release(part/cryst) brinzolamide 1 %-brimonidine 0.2 % 1 drp ophthalmic (eye) DAILY 12/14/24 05/20/25 History eye drops,suspension (Simbrinza) budesonide-formoterol HFA 160 2 puff inhalation BID Asthma #1 ea 12/14/24 05/20/25 Rx mcg-4.5 mcg/actuation aerosol inhaler (Symbicort) ursodiol 500 mg tablet 500 mg PO BID #180 tabs 02/14/25 05/20/25 Rx apixaban 5 mg tablet (Eliquis) 5 mg PO BID #60 tabs 03/26/25 05/20/25 Rx furosemide 40 mg tablet 40 mg PO DAILY 04/19/25 05/20/25 History baclofen 10 mg tablet 10 mg PO TID PRN muscle spasms #15 05/17/25 05/20/25 Rx tabs Allergy/AdvReac Type Severity Reaction Status Date / Time metoprolol (From Lopressor) Allergy Intermediate Shortness Verified 05/08/25 10:20 of breath bee venom protein (honey Allergy Mild Swelling Verified 05/08/25 10:20 bee) (bee sting) Penicillins Allergy Rash Verified 05/08/25 10:20 Family History Father Hypertension Grandmother Hypertension Other Alcoholism Liver disease Surgical History History of nasal cauterization History of coronary artery stent placement History of colon resection History of cataract extraction Presence of stent in coronary artery History of appendectomy History of partial colectomy (~2003) Social History household members: spouse Smoking Status: Never smoker alcohol intake: current alcohol intake frequency: holidays/special occasions only substance use type: does not use caffeine: No what type of physical activity do you participate in: weight training EXAM Physical Exam Const Vital Signs: 05/20/25 12:44 05/20/25 12:44 05/20/25 12:45 Temperature 98 F 98.5 F Temperature Source Oral Oral Pulse Rate 84 80 Respiratory Rate 20 H 18 Blood Pressure 167/86 H 164/93 H Blood Pressure Mean 113 116 Pulse Ox 98 100 Oxygen Delivery Method Room Air Room Air Room Air 05/20/25 13:11 05/20/25 13:30 05/20/25 14:00 Temperature Temperature Source Pulse Rate 54 L 57 L 49 L Respiratory Rate 16 16 Blood Pressure 133/94 H 122/87 H 149/74 H Blood Pressure Mean 107 98 99 Pulse Ox 100 100 Oxygen Delivery Method 05/20/25 15:00 Temperature Temperature Source Pulse Rate 54 L Respiratory Rate Blood Pressure 134/107 H Blood Pressure Mean 116 Pulse Ox Oxygen Delivery Method MDM MDM MDM Narrative Medical decision making narrative: 89-year-old male with past medical history of CHF, atrial fibrillation on Eliquis, glaucoma, BPH, HLD presents for evaluation of strokelike symptoms. Patient arrived as a stroke alert. Patient states last known well was 2100 yesterday prior to falling asleep. He states he woke up today with right-sided facial droop and increased blurriness of the left eye. Patient states at baseline he has poor vision and depth perception secondary to his glaucoma. He states he has a home nurse that felt that he was slightly weaker on the right compared to the left however patient has not noticed this. Patient's was called a stroke alert before arrival via EMS. NIH 1 secondary to right facial droop. Stroke alert continued and patient taken immediately to CT. Not a TNK candidate given last known normal 2100. Patient still in the LVO window. Differential diagnosis includes but is not limited to CVA, LVO, glaucoma, electrolyte abnormality. Once patient arrived back from CT. His is in the room. states that the patient's right-sided facial droop has been present for approximately 2 months. Patient now stating it has been present prior to today. He still endorses the worsening blurry vision of the left eye but denies neurological deficits otherwise. Given that this facial droop is not new, patient's NIH is 0. Given that NIH is 0 and that the only new deficit today is worsening left eye blurriness, stroke alert will be canceled. I did speak with the teleneurologist from [facility]. Dr. Hunt, he agrees on canceling the stroke. He did review the imaging. CT head without any acute intracranial abnormality. Chronic microvascular ischemia. CTA head and neck shows no LVO. High-grade stenosis and/thrombosis of a significant portion of the left vertebral artery mainly at the proximal portion. Minimal amount of retrograde filling. Dominant right vertebral artery. Widely patent right vertebral basilar artery. Patent right posterior commuting artery. Per Dr. Lux, medical management only. Recommend him continuing his Eliquis but increasing his atorvastatin to 40 mg daily instead of 20. Does not believe that patient needs any admission or further stroke workup. Stroke alert was canceled. CBC with mild leukocytosis 11.8, appears to be patient's baseline. He has baseline anemia and thrombocytopenia. INR 1.4. BMP unremarkable. Troponin 52 and 51. Patient not having any chest pain or shortness of breath. Delta troponin less than 6. No ischemic changes on EKG. Suspect this is his baseline. UA negative for UTI. Patient's visual acuity was tested. Patient has poor eyesight. Rate is 20/70. Left is 20/400, bilateral 20/200. Patient does not know his visual acuity however states that he is considered legally blind. I performed a thorough eye exam. No periorbital swelling or ecchymosis, no proptosis, no pain with extra ocular movements, EOMI intact, no lacerations, no sclera chemosis or injection, no foreign body, no teardrop pupil, no enophthalmos. Intraocular pressures were 14 bilaterally. Patient states that this is his baseline when he is on medication. States he is scheduled to see the eye doctor in a week. At this point in time, I suspect that patient's blurry vision in his left eye is likely secondary to progressive vision loss/glaucoma. Patient ambulated in the emergency department without difficulty. Patient stable to discharge home. Recommend calling the eye doctor tomorrow to be seen sooner in the office. Patient confirmed understanding of plan. Patient not driving. Patient stable to discharge home. Will increase his atorvastatin to the 40 mg recommended. Follow-up with vascular surgery for vertebral artery stenosis. He confirmed understanding. EKG: Interpreted by me/EM physician: EKG shows atrial fibrillation without any acute ischemic changes. Heart rate 52 Diagnostic: Interpreted by me/EM physician: Chest x-ray with mild cardiomegaly. No pneumothorax, pneumonia, large effusion. Radiology in agreement. Impression: 1. Acute on chronic blurry vision in the left eye 2. History of glaucoma and legally blind 2. 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 Lab Data Labs: Laboratory Results - last 24 hr 05/20/25 05/20/25 05/20/25 12:57 13:28 14:41 WBC 7.2 RBC 3.64 L Hgb 11.1 L Hct 34.8 L MCV 95.6 H MCH 30.5 MCHC 31.9 L RDW Std Deviation 55.1 H RDW Coeff of Angelia 15.7 H Plt Count 108 L MPV 11.2 Immature Gran % (Auto) 0.100 Neut % (Auto) 55.0 Lymph % (Auto) 31.9 [place] % (Auto) 11.2 H Eos % (Auto) 1.4 Baso % (Auto) 0.4 Absolute Neuts (auto) 4.0 Absolute Lymphs (auto) 2.30 Nucleated RBC % 0 PT 17.1 H INR 1.4 APTT 34.0 Sodium 136 Potassium 4.2 Chloride 103 Carbon Dioxide 25.3 Anion Gap 7 BUN 18 Creatinine 0.93 Estim Creat Clear Calc 66.91 Est GFR (MDRD) Non-Af 79 BUN/Creatinine Ratio 19.3 Glucose 93 Calcium 8.7 Troponin T High Sens 52 H Troponin T Hi Sens 2 Hr 51 H Urine Color Yellow Urine Clarity Clear Urine pH 6.0 Ur Specific [place] 1.010 Urine Protein 15 H Urine Glucose (UA) Normal Urine Ketones Negative Urine Occult Blood 25 H Urine Nitrite Negative Urine Bilirubin Negative Urine Urobilinogen Normal Ur Leukocyte Esterase 25 H Urine RBC 0 SEEN Urine WBC 0-5 SEEN Ur Squamous Epith Cells 0-5 SEEN Urine Bacteria 0 SEEN Urine Mucus 0 SEEN Radiography Diagnostic Testing: Clinical Impression(s) from Imaging Studies Brain CT 05/20/25 12:44 IMPRESSION: 1. No evidence of intracranial hemorrhage or acute ischemia. 2. Changes of chronic microvascular ischemia and volume loss. The findings and impression were called directly to Dr. Tanner at 12:58 PM EST Reading Location: [facility] Chest X-Ray 05/20/25 12:44 IMPRESSION: 1. Slight hypoinflation without convincing or visible acute cardiopulmonary findings 2. Additional description as above. Reading Location: [facility] Head/Neck CTA 05/20/25 12:55 IMPRESSION: 1. No evidence of large vessel occlusion at the MCAs. 2. High-grade stenosis/thrombosis of a significant portion of the left vertebral artery mainly at the proximal portion. Minimal amount of retrograde filling. 3. Dominant right vertebral artery. Widely patent right vertebral and basilar artery. 4. Patent right posterior communicating artery. Reading Location: [id number] Discharge Plan Triage Chief Complaint: Stroke Alert ED Provider: Roberto Tanner Dx/Rx/DC Orders Prescriptions: No Action albuterol sulfate [Ventolin HFA] 90 mcg/actuation HFA aerosol inhaler 2 puff INHALATION Q4H PRN (Reason: Asthma) Qty: 8.5 2RF sennosides-docusate sodium [Senokot-S] 8.6-50 mg tablet 1 tab-cap PO DAILY Simbrinza 1-0.2 % drops,suspension 1 drp ophthalmic (eye) DAILY budesonide-formoterol [Symbicort] 160-4.5 mcg/actuation HFA aerosol inhaler 2 puff inhalation BID Qty: 1 11RF Rx Instructions: administer with spacer, rinse mouth after each use potassium chloride 10 mEq tablet,ER particles/crystals 10 meq PO QDAY Qty: 90 3RF ursodiol 500 mg tablet 500 mg PO BID Qty: 180 1RF Rocklatan 0.02-0.005 % drops 1 drp ophthalmic (eye) QHS Rx Instructions: INSTILL 1 DROP INTO EACH EYE AT BEDTIME acetaminophen 500 mg Tablet 1,000 mg PO Q6H PRN PRN (Reason: Pain Score 1-10) Qty: 0 0RF furosemide 40 mg tablet 40 mg PO DAILY (DME) Disability Placard See Rx Instructions .Route .MEDSUPPLY Qty: 1 0RF Rx Instructions: Expires 12/01/2026 (DME) nebulizer and compressor [Portable Nebulizer System] Device See Rx Instructions .Route Qty: 1 0RF Rx Instructions: As directed nitroglycerin 0.4 mg tablet, sublingual 0.4 mg SUBLINGUAL Q5-15M PRN (Reason: chest pain) Qty: 25 3RF finasteride 5 mg tablet 5 mg PO DAILY Qty: 90 3RF famotidine 20 mg tablet 20 mg PO DAILY Qty: 90 3RF atorvastatin 20 mg tablet 20 mg PO QHS Qty: 90 3RF Eliquis 5 mg tablet 5 mg PO BID Qty: 60 11RF baclofen 10 mg tablet 10 mg PO TID PRN (Reason: muscle spasms) Qty: 15 1RF Primary Care Provider: Addi Mario Referrals: Addi Mario MD [Primary Care Provider] - Print Language: Macedonian
--- OUTSIDE RECORDS SUMMARY | 2025-05-20 12:59 | XMS RPT_ITS | CCD ---
Author Organization [facility] CliniSymn Care Team Providers Care Bevel Operator Name Role Phone Dr. Addi Mario Primary Care Provider [phone] Dr. Woody Montana Referring Provider [phone] Dr. Woody [place] Other Provider Dr. Valentín Krause Attending Provider Dr. Addi Mario Referring Provider [phone] Dr. Woody Montana Attending Provider [phone] Dr. Quentin Beltran Attending Provider [phone] Dr. Addi Mario Attending Provider [phone] Zachary ELECTRICAL ASSEMBLY TECHNICIAN, HUAN Parisi Attending Provider Dr. Jeff Carrero Attending Provider [phone] Dr. John Cool Attending Provider Cas LUEVANO, [place] Ava Daniels Attending Provider Dr. Addi Mario Primary Care Provider [phone] Tristan Montana MD Unavailable Manuel Logan MD Primary Care Provider [phone] Dr. Addi Mario Primary Care Provider [phone] Dr. Addi Mario Referring Provider [phone] Dr. Quentin Beltran Attending Provider [phone] Dr. Addi Mario Attending Provider [phone] Dr. Addi Mario Primary Care Provider [phone] Dr. Addi Mario Referring Provider [phone] BASSEM Mireles Attending Provider Unavail le Travon, Dr. Lopez Attending Provider Dr. Addi Mario Primary Care Provider [phone] Dr. Addi Mario Referring Provider [phone] Dr. John Cool Attending Provider Sharma ELECTRICAL ASSEMBLY TECHNICIAN, ELECTRICAL ASSEMBLY TECHNICIAN-C Ailin Attending Provider Dr. Addi Mario Attending Provider [phone] Dr. Addi Mario Primary Care Provider [phone] Shelbi, Dr. Fontana Referring Provider [phone] MD Manuel Gardner Attending Provider [phone] BASSEM Mederos Attending Provider Dr. Addi Mario Primary Care Provider [phone] Dr. Addi Mario Referring Provider [phone] Dr. Addi Mario Attending Provider [phone] Nan FREDERICK, Nagapradeep Unavailable Manuel Logan MD Primary Care Provider [phone] Nan FREDERICK, Nagapradeep Unavailable Dr. Addi Mario Primary Care Provider [phone] Dr. Addi Mario Attending Provider [phone] Dr. Addi Mario Referring Provider [phone] Dr. Odalis Schmidt Attending Provider Dr. Antonio James Emergency Provider Dr. Miguelito Laguna Admit Provider Dr. Miguelito Laguna Attending Provider Dr. Miguelito Laguna Other Provider Troy, Dr. Mendez Other Provider Troy, Dr. Mendez Attending Provider Koram, Dr. Klaudia Perry Other Provider Koryael, Dr. Klaudia Perry Attending Provider Jesus, Dr. Darien Akhtar Other Provider Dr. dAdi Mario Primary Care Provider Dr. Addi Mario Referring Provider Tono WOODARD, ELECTRICAL ASSEMBLY TECHNICIAN-C Moreno Rhodes Attending Provider Desmond FREDERICK, Manuel Chang Primary Care Provider Shelbi FREDERICK, Dr. Fontana Primary Care Provider Shelbi FREDERICK, Dr. Fontana Referring Provider [phone] Souleymane Curiel Attending Provider Shelbi FREDERICK, Dr. Fontana Attending Provider [phone] Ava Mederos Attending Provider [phone] Shelbi [...] FREDERICK, Dr. Fontana Referring Provider [phone] Patrick MATSONCGretchen Referring Provider [phone] Mariana WILL, Dr. Gongora Emergency Provider Shelbi FREDERICK, Dr. Fontana Primary Care Provider Shelbi FREDERICK, Dr. Fontana Attending Provider [phone] Shelbi FREDERICK, Dr. Fontana Referring Provider [phone] Nan FREDERICK, Dr. Mckay Attending Provider Mariana WILL, Dr. Gongora Attending Provider Keyona WILL, Dr. aVlles Emergency Provider Isac FREDERICK, Dr. Mahoney Emergency Provider Keyona WILL, Dr. Valles Attending Provider Isac FREDERICK, Dr. Mahoney Attending Provider Roxana FREDERICK, Dr. Bowling Attending Provider Shelbi FREDERICK, Dr. Fontana Primary Care Provider Shelbi FREDERICK, Dr. Fontana Referring Provider [phone] Shelbi FREDERICK, Dr. Fontana Attending Provider [phone] Dr. Odalis Schmidt MD Referring Provider Troy FREDERICK, Dr. Mendez Attending Provider [phone] Shelbi FREDERICK, Dr. Fontana Primary Care Provider Shelbi FREDERICK, Dr. Fontana Referring Provider [phone] Allison Verduzco Attending Provider [phone] Shelbi FREDERICK, Dr. Fontana Primary Care Provider Shelbi FREDERICK, Dr. Fontana Attending Provider [phone] Shelbi FREDERICK, Dr. Fontana Referring Provider [phone] Maurice Epstein Attending Provider CORINA NGUYEN Attending Unavailable OLEGHE, EFEWONGBE B Primary Care Unavailable ODALIS SCHMIDT Referring Unavail able Gretchen Nguyen CNP Unavailable [phone] Shelbi FREDERICK, Efewongbe B Primary Care Provider Odalis Schmidt Unavailable Maurice Epstein Referring Provider [phone] Oleghe, Efewongbe Primary Care Unavailable Gretchen Nguyen NP Referring Unavailable Woody Montana Attending Unavailabl e Oleghe, Efewongbe Referring Unavailable Oleghe, Efewongbe Primary Care Unavailable Ailin Sharma NP Attending Unavailable Oleghe, Efewongbe Referring Unavailable Souleymane Curiel Attending Unavailable Oleghe, Efewongbe Primary Care Unavailable Oleghe, Efewongbe Attending Unavailable Oleghe, Efewongbe Referring Unavailable Oleghe, Efewongbe Primary Care Unavailable Oleghe, Efewongbe Referring Unavailable Oleghe, Efewongbe Attending Unavailable Oleghe, Efewongbe Primary Care Unavailable Patrick WOODARD, Gretchen Attending Unavailable Gretchen Nguyen NP Referring Unavailable Oleghe, Efewongbe Primary Care Unavailable Vanessa Simmons Attending Unavailable Oleghe, Efewongbe Primary Care Unavailable Oleghe, Efewongbe Referring Unavailable Oleghe, Efewongbe Attending Unavailable Oleghe, Efewongbe Primary Care Unavailable Oleghe, Efewongbe Referring Unavailable Oleghe, Efewongbe Attending Unavailable Oleghe, Efewongbe Primary Care Unavailable Oleghe, Efewongbe Primary Care Unavailable Patrick WOODARD, Gretchen Referring Unavailable Patrick WOODARD, Gretchen Attending Unavailable Oleghe, Efewongbe Primary Care Unavailable Denzel Chau Attending Unavailable Oleghe, Efewongbe Primary Care Unavailable Rolan Peña Attending Unavailable Oleghe, Efewongbe Primary Care Unavailable Hai Rand Attending Unavailable Oleghe, Efewongbe Referring Unavailable Oleghe, Efewongbe Attending Unavailable Oleghe, Efewongbe Primary Care Unavailable Oleghe, Efewongbe Referring Unavailable Oleghe, Efewongbe Attending Unavailable Oleghe, Efewongbe Primary Care Unavailable Patrick WOODARD, Gretchen Referring Unavailable Patrick WOODARD, Gretchen Attending Unavailable Oleghe, Efewongbe Primary Care Unavailable Oleghe, Efewongbe Attending Unavailable Oleghe, Efewongbe Referring Unavailable Oleghe, Efewongbe Primary Care Unavailable Oleghe, Efewongbe Referring Unavailable Oleghe, Efewongbe Attending Unavailable Oleghe, Efewongbe Primary Care Unavailable Oleghe, Efewongbe Referring Unavailable Oleghe, Efewongbe Attending Unavailable Oleghe, Efewongbe Primary Care Unavailable Odalis Schmidt Referring Unavailable Odalis Schmidt Attending Unavailable Oleghe, Efewongbe Primary Care Unavailable Oleghe, Efewongbe Primary Care Unavailable Swati LUEVANO, Maurice Referring Unavailable Maurice Epstein Attending Unavailable Oleghe, Efewongbe Referring Unavailable Oleghe, Efewongbe Primary Care Unavailable Ailin Sharma NP Attending Unavailable Oleghe, Efewongbe Referring Unavailable Odalis Schmidt Attending Unavailable Oleghe, Efewongbe Primary Care Unavailable Oleghe, Efewongbe Referring Unavailable Allison Kang Attending Unavailable Oleghe, Efewongbe Primary Care Unavailable Oleghe, Efewongbe Referring Unavailable Oleghe, Efewongbe Primary Care Unavailable Maurice Epstein Attending Unavailable Oleghe, Efewongbe Referring Unavailable Oleghe, Efewongbe Primary Care Unavailable Ava Mederos Attending Unavail able Oleghe, Efewongbe Referring Unavailable Gretchen Nguyen NP Attending Unavailable Oleghe, Efewongbe Primary Care Unavailable Allergies Allergy Classification Reported Allergen(s) Allergy Type Date of Onset Reaction(s) Facility amLODIPine (1 source) amLODIPine Drug Allergy 6 Other: See Comments [facility] HMG-CoA Reductase Inhibitors (statins) (1 source) atorvastatin Drug Allergy 1 Intolerance [facility] Metoprolol (1 source) Metoprolol Drug Allergy 4 Unknown [facility] Mold Extract (1 source) Mold Extract Drug Allergy 7 [facility] Penicillins (antibiotic) (1 source) Penicillins Drug Allergy 0 Hives [facility] Work Phone: (20 sources) Metoprolol; Translations: [METOPROLOL] Drug Allergy 2 Unknown, Other: See Comments [facility] (20 sources) Penicillins; Translations: [PENICILLINS] Allergy to substance 0 Hives [facility] Work Phone: (18 sources) amLODIPine; Translations: [AMLODIPINE] Drug Allergy 6 Other: See Comments [facility] (18 sources) atorvastatin; Translations: [ATORVASTATIN CALCIUM] Drug Allergy 1 Intolerance [facility] (18 sources) Mold Extract; Translations: [MOLD] Drug Allergy 7 Other: See Comments [facility] (17 sources) long haired dogs and cats [Other] Propensity to adverse reactions 7 Other: See Comments [facility] (15 sources) beta-Blocking agent; Translations: [BETA-BLOCKERS (BETA-ADRENERGIC BLOCKING AGTS)] Drug Allergy 0 Other: See Comments, Shortness of Breath [facility] (16 sources) bee venom protein (honey bee) Allergy to substance 5 Swelling [facility] (2 sources) OTHER; Translations: [OTHER] Propensity to adverse reactions (disorder) 7 [facility] [place] [facility] (1 source) Metoprolol Drug Allergy 5 [facility] (1 source) bee venom protein (honey bee) Drug allergy (disorder) 5 [facility] Rep[facility] Medications Current Medications Medication Drug Class(es) Dates Sig (Normalized) Sig (Original) acetaminophen 500 mg oral tablet (20 sources) Start: 12-30-2023 take 2 tablets by mouth every six hours as needed for pain Acetaminophen 500 mg Tablet Active 1000 mg PO EVERY 6 HOURS NEEDED as needed for Pain Score 1-10 0 0 December 30, 2023 12:00am Start: 12-30-2023 [...] /3 mL (0.083 %) solution for nebulization (16 sources) Start: 01-04-2024 take 2.5 mg by [...] needed for shortness of breath or wheezing January 04, 2024 12:00am Arthritis Compound (20 [...] 1 click topical daily 60 click tube benoxinate hydrochloride 4 mg/ml / fluorescein sodium 3 mg/ml ophthalmic solution (8 sources) Diagnostic Dye Start: 01-14-2025 End: 01-15-2025 fluorescein-benoxinate 0.3-0.4 % 1 drop (FLURESS) Start: 11-26-2024 End: 11-27-2024 fluorescein-benoxinate 0.3-0 .4 % 1 Drop (FLURESS) Start: 11-26-2024 End: 11-27-2024 1 Drop, BOTH EYES, DIRECT ED, Starting on Tue11/26/24 at 1330, Until Tue11/27/24 at 0129, Administer for applanation tonometry. In the event of a Fluress shortage, administer 1 drop of Damascus-Fluor into both eyes as directed for applanation tonometry., OPHT [facility]IC MED ORDERS Start: 07-30-2024 End: 07-31-2024 fluorescein-benoxinate 0.3-0 .4 % 1 Drop (FLURESS) Start: 07-30-2024 End: 07-31-2024 1 Drop, BOTH EYES, DIRECT ED, Starting on Tue07/30/24 at 1330, Until Tue07/31/24 at 0129, Administer for applanation tonometry. In the event of a Fluress shortage, administer Damascus-Fluor 1 drop into both eyes as directed for applanation tonometry, [facility]IC MED ORDERS Start: 03-12-2024 End: 03-13-2024 fluorescein-benoxinate 0.3-0 .4 % 1 Drop (FLURESS) Start: 11-07-2023 End: 11-08-2023 fluorescein-benoxinate 0.3-0 .4 % 1 Drop (FLURESS) Start: 07-04-2023 End: 07-05-2023 fluorescein-benoxinate 0.25- 0.4 % 1 Drop (FLURESS) brimonidine tartrate 2 mg/ml / brinzolamide 10 mg/ml ophthalmic suspension (19 sources) Carbonic Anhydrase Inhibitor, alpha-Adrenergic Agonist Start: [...] NMA INHALATION TWICE A DAY 1 3 May 29, 2024 3:49pm August 02, 2024 [...] NMA INHALATION TWICE A DAY 1 3 May 29, 2024 10:31am May 29, 2024 [...] Start: 08-15-2023 take 1 puff(s) by [facility] daily Budesonide-Formoterol (Symbicort) 160-4. 5 mcg/actuation [...] use Start: 05-02-2023 take 1 puff(s) by [facility] once daily Budesonide-Formoterol (Symbicort) 160-4. 5 [...] use Start: 08-04-2022 take 1 puff(s) by [facility] once daily Budesonide-Formoterol (Symbicort) 160-4. 5 mcg/actuation HFA aerosol inhaler Active 2 PUFF INHALATION DAILY August 04, 2022 3:03pm administer with spacer, rinse mouth after each use Start: 08-04-2022 take 1 puff(s) by [facility] once daily Budesonide-Formoterol (Symbicort) 160-4. 5 [...] use Start: 11-25-2021 take 1 puff(s) by [facility] twice daily Budesonide-Formoterol (Symbicort) 160-4. 5 mcg/actuation HFA aerosol inhaler Active 2 PUFF INHALATION TWICE A DAY November 25, 2021 9:47am administer with spacer, rinse mouth after each use Start: 11-25-2021 End: 03-26-2022 Budesonide-Formoterol (Symbi trish) 160-4.5 mcg/actuation HFA aerosol inhaler Discontinued 2 NMA INHALATION TWICE A DAY 09 21November 25, 2021 1:00am March 26, 2022 8:23am administer with spacer, rinse mouth after each use Start: 11-25-2021 End: 03-26-2022 Budesonide-Formoterol (Symbi trish) 160-4.5 mcg/actuation HFA aerosol inhaler Discontinued 2 NMA INHALATION TWICE A DAY November 25, 2021 [...] TWICE A DAY 1 November 23, 2021 12:00am November 25, 2021 [...] Supplement Disability Placard (20 sources) Start: 12-02-19 Disability Placard Active 0 .Route .MEDSUPPLY 1 December 01, 2021 11:10am Expires 12/01/2026 Start: 12-01-2021 Disability Alirio card Active 0 .Route .MEDSUPPLY 1 0 December 01, 2021 12:00am chronic respiratory distress J96.10 Expires 12/01/2026 Start: 12-01-2021 Disability Alirio card Active 0 .Route .MEDSUPPLY 1 December 01, 2021 12:00am Expires 12/01/2026 Start: 12-01-2021 Disability Alirio card Active 0 .Route .MEDSUPPLY 1 November 30, 2021 11:00pm Expires 12/01/2026 docusate sodium 50 mg / sennosides, intermediate 8.6 mg oral tablet (20 sources) Start: [...] oral tablet (20 sources) Loop Diuretic Start: 04-19-2025 Furosemide 40 mg tablet Active 20 mg PO DAILY April 19, 2025 1:54pm Start: 10-23-2024 End: 03-17-2025 take 1 tablet by mouth once daily Furosemide 20 mg tablet Discontinued 20 mg PO daily 3 November 15, 2024 4:31pm March 17, 2025 5:48am Start: 12-08-2023 End: 05-14-2025 take 1 tablet by mouth once daily Furosemide 40 mg tablet Discontinued 40 mg PO daily 90 3 August 28, 2024 1:53pm October 23, 2024 3:31pm edema latanoprost 0.05 mg/ml / netarsudil 0.2 mg/ml ophthalmic solution (20 sources) Prostaglandin Analog, Rho Kinase Inhibitor Start: 12-02-[address] (Rocklatan) 0.02-0.005 % drops Active 1 NMA [...] in both e yes daily at bedtime. Methylcellulose (20 sources) Start: 02-03-2021 Methylcellulose (With [...] 11:00pm mometasone furoate 1 mg/ml topical cream (17 sources) Corticosteroid Start: 06-13-2013 mometasone (ELOCON) 0.1 [...] FACE, EYES, EYELIDS, AND DEEP FOLD AREAS. Ecqiusab-Gyk-Dg-L ycopen-Lutein (Centrum Silver) 0.4 mg-300 mcg- 250 mcg tablet (20 sources) Start: 12-02-2023 take 1 tablet by mouth once daily Byuxtdkq-Uvu-Qd-Ly copen-Lutein (Centrum Silver) 0.4 mg-300 mcg- 250 mcg tablet Active 1 {tbl} PO DAILY December 02, 2023 12:00am supplement Start: 12-02-2023 take 1 tablet by paula th once daily Axxjxrmz-Dni-Mq-Lycopen-Lutein (Centrum Silver) 0.4 mg-300 mcg- 250 mcg tablet Active 1 {tbl} PO DAILY December 02, 2023 12:00am Start: 12-02-2023 take 1 tablet by paula th once daily Blmhupyt-Muv-Ig-Lycopen-Lutein (Centrum Silver) 0.4 mg-300 mcg- 250 mcg [...] iron chewable (FLINTSTONES COMPLETE, IRON,) chewable tablet (17 sources) Start: 12-16-2015 take 1 tablet by [...] 2.5 % 1 Drop ( AK-DILATE, PEPE-SYNEPHRINE) proparacaine hydrochloride 5 mg/ml ophthalmic solution (5 [...] glycol/peg 400 (SY STANE FREE, PF, OPHTHALMIC) (15 sources) propylene glycol /peg 400 (SYSTANE FREE, [...] mouth twice daily Ursodiol 500 mg tablet Take 500 mg by mouth two times a day. 02/16/2025 Active Start: 12-30-2023 End: 12-14-2024 take 1 tablet [...] with meals FOR LIVER DISEASE Start: 01-27-2017 End: 05-14-2025 take 2 tablets by mouth twice daily ursodiol (DANNIELLE) 250 mg tablet Take 2 tablets by mouth twice daily. 120 tablet 2 01/27/2017 05/14/2025 Discontinued (Course of therapy completed) Start: 12-06-2016 End: 12-01-2021 take 1 tablet [...] on above: Take 2 tablets by [facility] twice daily. vitamin D3-vitamin K2 1,250-200 mcg cap (1 source) take 1 tablet by mouth once daily vitamin D3-vitamin K2 1,250-200 mcg cap Take 1 tablet by mouth once daily. Active Completed/Discontinued Medications Medication Drug Class(es) Dates Sig [...] sources) Factor Xa Inhibitor Start: 12-04-19 End: 05-14-20 take 1 tablet by mouth twice daily Apixaban (Eliquis) 5 mg tablet Discontinued 5 mg PO TWICE A DAY 60 2025 12:00am March 26, 2025 12:49pm Comment on above: Take 1 tablet by [...] 12:17pm Arthritis Pain Compound 60 CLICK Gm (16 sources) Start: 06-29-2020 End: 07-14-2020 Arthritis Pain [...] Sulfate every day to increase iron absortion aspirin 81 mg delayed release oral tablet (20 sources) Platelet Aggregation Inhibitor, Nonsteroidal Anti-inflammatory Drug Start: 12-06-2016 End: 04-19-2025 take 1 tablet by mouth once daily Aspirin 81 MG tablet Discontinued 81 mg PO DAILY@0800 December 06, 2016 12:00am April 19, 2025 1:53pm heart health On Hold: Nosebleeds. Start: 11-21-2006 End: 05-14-2025 ASPIRIN 81 MG TAB Take one(1 ) tablet daily. 0 11/21/2006 05/14/2025 Discontinued (Course of therapy completed) Comment on above: Take one(1) tablet d aily. atorvastatin 20 mg oral tablet (20 sources) HMG-CoA Reductase Inhibitor Start: 9 End: take 1 tablet by mouth at bedtime Atorvastatin 20 mg tablet Discontinued 20 mg PO AT BEDTIME 90 1 May 02, 2024 5:20pm October 22, 2024 3:27pm cholesterol Start: 11-22-2016 End: 05-14-2025 Atorvastatin 40 MG tablet Di scontinued 40 mg PO December 06, 2016 12:00am May 25, 2019 9:34am Comment on above: Take 1 tablet by paula th daily at bedtime. For cholesterol. baclofen 10 mg oral tablet (20 sources) gamma-Aminobutyric Acid-ergic Agonist Start: 7 End: take 1 tablet by mouth three times [...] 2:12pm April 20, 2024 9:40am Start: 01-22-2024 End: 05-13-2025 take 4 tablets by mouth twice daily at mealtime carvedilol (COREG) 6.25 mg tablet Take 25 mg by mouth two times a day with meals. 01/22/2024 05/13/2025 Discontinued (Course of therapy completed) Start: 12-08-2023 End: 04-19-2024 take 1 tablet by mouth twice daily at mealtime Carvedilol 6.25 mg tablet Discontinued 6.25 mg PO TWICE DAILY WITH MEALS 180 1 January 09, 2024 5:03pm January 23, 2024 2:12pm cefdinir 300 mg oral capsule (19 sources) Cephalosporin Antibacterial Start: 12-08-2023 End: 12-20-2023 take 1 capsule by mouth twice daily Cefdinir 300 mg capsule Discontinued 300 mg PO TWICE A DAY 10 December 08, 2023 12:00am December 20, 2023 10:51am Antibiotic cephalexin 500 mg oral capsule (7 sources) Cephalosporin Antibacterial Start: 03-17-2025 End: 04-19-2025 take 1 capsule by mouth every twelve hours Cephalexin 500 mg capsule Discontinued 500 mg PO EVERY 12 HOURS 10 5 0 March 17, 2025 12:00am April 19, 2025 1:53pm cetirizine hydrochloride 10 mg oral capsule (20 sources) Histamine-1 Receptor Antagonist Start: 06-02-2019 End: 12-27-2023 take 1 capsule by mouth once daily as needed Cetirizine 10 mg capsule Discontinued 10 mg PO DAILY as needed for allergy October 05, 2022 2:17pm December 27, 2023 8:58am Start: 01-19-2013 take 1 tablet by paula th once daily as needed Cetirizine 10 mg tablet Active 10 mg PO DAILY as needed January 23, 2024 12:00am Comment on above: Take 1 tablet by paula th once daily. ciprofloxacin 500 mg oral tablet (18 sources) Quinolone Antimicrobial Start: 12-21-19 End: 12-30-19 [...] blood thinner dorzolamide 20 mg/ml ophthalmic solution (20 sources) Carbonic Anhydrase Inhibitor Start: 12-29-2022 End: [...] Dietary Cholesterol Absorption Inhibitor Start: 7 End: 5 take 1 tablet by mouth once daily [...] tablet Discontinued 20 mg PO DAILY 90 3 August 10, 2023 1:52pm September 10, 2024 1:02pm GERD Start: 06-29-2020 End: 08-06-2020 take 2 tablets by mouth once daily Famotidine 20 MG tablet Discontinued 40 mg PO DAILY 30 0 June 29, 2020 12:00am August 06, 2020 [...] 325 mg PO EVERY OTHER DAY 90 2 March 12, 2024 12:29pm February 05, 2025 [...] sources) 5-alpha Reductase Inhibitor Start: 9 End: take 1 tablet by mouth once [...] 2 NMA INHALATION TWICE A DAY 13 3 September 23, 2021 1:00am November 23, 2021 5:21pm Start: 09-23-2021 End: 11-23-2021 take 1 puff(s) by inhalation twice daily Mometasone-Formoterol (Dulera) 200-5 mcg/actuation HFA aerosol inhaler Discontinued 2 PUFF INHALATION TWICE A DAY September 23, 2021 1:00am November 23, 2021 5:21pm 12 hr guaiFENesin 1200 mg extended release oral tablet (20 sources) Start: 06-29-2023 End: 12-30-2023 take 1 [...] per day as needed for hemorrhoids 30 January 04, 2024 12:00am March 17, 2025 5:48am Start: 10-16-2013 hydrocortisone 2.5 % cream Apply 1 application to affected area twice daily. 80 g 5 10/16/2013 Active Comment on above: Apply 1 application to affected area twice daily. ibuprofen 200 mg oral tablet (17 sources) Nonsteroidal Anti-inflammatory Drug Start: 7 End: 5 take 1 tablet by mouth twice daily for pain ibuprofen (MOTRIN) 200 mg tablet Indications: Chronic midline low back pain with sciatica, sciatica laterality unspecified Take 1 tablet by mouth twice daily. For back pain. 11/02/2016 05/14/2025 Discontinued (Course of therapy completed) Comment on above: Take 1 tablet by paula th twice daily. For back pain. lisinopril 2.5 mg oral tablet (20 sources) Angiotensin Converting Enzyme Inhibitor Start: 7 End: 5 take 1 tablet by mouth at bedtime Lisinopril 2.5 mg tablet Discontinued 2.5 mg PO AT BEDTIME 90 4 November 06, 2019 3:53pm June 29, 2020 11:56am blood pressure Comment on above: Take 1 tablet by paula once daily. Take 2.5 mg by mouth once daily. loratadine 10 mg oral tablet (18 sources) Start: 4 End: 4 take 1 tablet by mouth once daily Loratadine (Claritin) 10 mg tablet Discontinued 10 mg PO DAILY December 27, 2023 12:00am December 30, 2023 1:51pm loteprednol etabonate (EYSUVIS) 0.25 % drps (15 sources) End: loteprednol etabonate (EYSUVIS) 0.25 % drps Use 1 Drop in eyes as needed. 05/13/2025 Discontinued (Course of therapy completed) loteprednol etab amrit (EYSUVIS) 0.25 % drps Use 1 Drop in eyes as needed. Active loteprednol etab amrit (EYSUVIS) 0.25 % drps Use 1 Drop in eyes as needed. 0 Active Comment on above: Use 1 Drop in eyes a s needed. magnesium hydroxide 80 mg/ml oral suspension (20 [...] 12:00am May 25, 2019 9:39am Start: 11-02-2016 End: 05-14-2025 Magnesium Hydroxide (CARLTON S MILK OF MAGNESIA) 311 mg chew Indications: Chronic idiopathic constipation 2-4 tablets at bedtime for constipation. 0 11/02/2016 05/14/2025 Discontinued (Course of therapy completed) Comment on above: 2-4 tablets at bedti [...] 14, 2020 1:19pm stool softener Multivitamin capsule (16 sources) Start: 07-24-2020 End: 12-02-2023 Multivitamin capsule Discont inued 1 NMA PO DAILY July 24, 2020 1:00am December 02, 2023 3:08pm Multivitamin tablet (16 sources) Start: 05-25-2019 End: 07-14-2020 Multivitamin tablet [...] (150 mg x 2)-100 mg tablets,dose pack (15 sources) Start: 11-30-2024 End: 12-14-2024 Nirmatrelvir-Ritonavir (Paxlovid) [...] 15 minutes as needed for chest pain 25 3 September 15, 2023 12:29pm May 01, 2024 2:57pm Comment on above: Dissolve 1 tablet un liv the tongue every 5 minutes as needed for Chest Pain (Max of 3 tabs.). nystatin [id number] unt/ml / triamcinolone acetonide 1 mg/ml topical [...] 12:00am May 25, 2019 9:40am Start: 11-22-2016 End: 05-14-2025 take 1 capsule by mouth once daily before breakfast omeprazole (PRILOSEC) 20 mg capsule Indications: Atherosclerosis of [place] coronary 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 Take 20 mg by mouth daily before breakfast. 1/2 hr before meal. 30 capsule 11/22/2016 05/14/2025 Discontinued (Course of therapy completed) Comment on above: Take 1 capsule by mo [facility] daily before breakfast. 1/2 hr before meal. Take 20 mg by mouth daily before breakfast. 1/2 hr before meal. oxyCODONE hydrochloride 5 mg oral tablet (20 sources) Opioid Agonist Start: 0 End: take 1 tablet by mouth every six hours as needed for pain Oxycodone 5 MG tablet Discontinued 5 mg PO EVERY 6 HOURS NEEDED as needed for Pain Score 6-10/10 12 3 0 June 29, 2020 June 11, 2020 12:00am June 29, 2020 11:55am Multiple fractures Unspecified multiple injuries, initial encounter Start: 06-29-2020 End: 06-29-2020 take 1 tablet by mouth every six hours as needed for pain Oxycodone 5 MG tablet Discontinued 5 mg PO EVERY 6 HOURS NEEDED as needed for Pain Score 6-10/10 12 3 0 June 29, 2020 June 11, 2020 12:00am June 29, 2020 11:55am Multiple fractures Unspecified multiple injuries, initial encounter Start: 06-29-2020 End: 06-29-2020 take 1 tablet by mouth every six hours as needed for pain Oxycodone 5 MG tablet Discontinued 5 mg PO EVERY 6 HOURS NEEDED as needed for Pain Score 6-10/10 12 3 0 June 29, 2020 June 11, 2020 12:00am June 29, 2020 11:55am Multiple fractures Unspecified multiple injuries, initial encounter Start: 06-29-2020 End: 06-29-2020 take 1 tablet by mouth every six hours as needed for pain Oxycodone 5 MG tablet Discontinued 5 mg PO EVERY 6 HOURS NEEDED as needed for Pain Score 6-10/10 12 3 0 June 29, 2020 June 11, 2020 12:00am June 29, 2020 11:55am Multiple fractures Unspecified multiple injuries, initial encounter Start: 06-29-2020 End: 06-29-2020 take 1 tablet by mouth every six hours as needed for pain Oxycodone 5 MG tablet Discontinued 5 mg PO EVERY 6 HOURS NEEDED as needed for Pain Score 6-10/10 12 3 0 June 29, 2020 June 11, 2020 12:00am [...] PO EVERY 6 HOURS NEEDED 12 June 09, 2020 3:13pm June 29, 2020 [...] 8:39am Pediatric Multivitamin No.76 1 EACH tablet,chewable (16 sources) Start: 12-06-2016 End: 05-25-2019 Pediatric Multivitamin No.76 1 EACH tablet,chewable Discontinued December 06, 2016 12:00am May 25, 2019 9:39am pimecrolimus 10 mg/ml topical cream (17 sources) Calcineurin Inhibitor Immunosuppressant Start: 05-31-2016 End: 05-14-2025 pimecrolimus (ELIDEL) 1 % cream Indications: Seborrheic dermatitis, unspecified , Other psoriasis , Other atopic dermatitis and related conditions Apply to affected areas of dermatitis and/or psoriasis rash on eyelids or central face twice daily until clear as tolerated. Taper as able when clear 15 g 1 05/31/2016 05/14/2025 Discontinued Comment on above: Apply to affected ar eas of dermatitis and/or psoriasis rash on eyelids or central face twice daily until clear as tolerated. Taper as able when clear polymyxin b 11223 unt/ml / trimethoprim 1 mg/ml ophthalmic solution (20 sources) Dihydrofolate Reductase Inhibitor Antibacterial, Polymyxin-class Antibacterial Start: 08-09-2024 End: 05-14-2025 Polymyxin B Sulf-Trimethoprim 10,000 unit- 1 mg/mL [...] oral tablet (20 sources) Start: 06-29-2023 End: 05-13-2025 Prednisone 10 mg tablet Discontinued 10 mg [...] on above: take 4 tablets by mo uth daily for 3 days then 3 daily for 3 days ... (REFER TO PRESCRIPTION NOTES). crescencio (20 sources) Start: 12-29-2022 End: 08-15-2023 rocklan Discontinued EACH EYE December 29, 2022 12:00am August 15, 2023 3:46pm Start: 12-29-2022 rocklan Active EACH EYE December 29, 2022 12:00am ticagrelor 90 mg oral tablet (20 sources) Start: 11-22-2016 End: 05-14-2025 take 1 tablet by mouth twice daily Ticagrelor 90 MG tablet Discontinued 90 mg PO TWICE A DAY December 06, 2016 12:00am May 25, 2019 9:41am Comment on above: Take 1 tablet by paula th twice daily. Take 90 mg by mouth [...] te Episodic/Chronic Acute and unspecified renal failure (20 sources) Acute renal failure syndrome; Translations: [Acute kidney failure, unspecified] 12-03-2023 Episodic Acute myocardial infarction (20 sources) Myocardial infarction; Translations: [Non-ST elevation (NSTEMI) myocardial infarction] Onset: 5 08-01-2021 Chronic Administrative/social admission (20 sources) Patient encounter status; Translations: [Other specified counseling] 12-29-2022 Episodic Allergic reactions (20 sources) Inflammatory dermatosis; Translations: [Dermatitis, unspecified] Onset: Resolved: 7 11-02-2016 Episodic Asthma (20 sources) [...] count below reference range; Translations: [Thrombocytopenia, unspecified] Onset: 3 08-05-2020 Chronic Conditions associated with dizziness or vertigo (20 sources) Dizziness; Translations: [Dizziness and giddiness] Onset: 8 Episodic Congestive heart failure; nonhypertensive (20 sources) Congestive heart failure; Translations: [Heart failure, unspecified] Onset: 5 01-23-2024 Chronic Coronary atherosclerosis and other heart disease (20 sources) Coronary atherosclerosis; Translations: [Atherosclerotic heart disease of atka coronary artery without angina pectoris] Onset: 0 [...] [Presence of coronary angioplasty implant and graft] Onset: 5 Episodic Comment on above: 2.75 x 15 mm Promus to mid LAD, 3.0 x 12 mm Promus to proximal LAD 08/14/10; 2.5 x 8 mm Xience Alpine IFDEL to mid LAD 11/15/16 Deficiency and other anemia (17 sources) Iron deficiency anemia due to blood loss; Translations: [Iron deficiency anemia secondary to blood loss (chronic)] Onset: 6 12-23-2015 Chronic Deficiency and other anemia (20 sources) Iron deficiency anemia; Translations: [Iron deficiency anemia, unspecified] 09-27-2022 Episodic Deficiency and other anemia (2 sources) Iron deficiency anemia, unspecified; Translations: [Iron deficiency anemia, unspecified] Episodic Deficiency and other anemia (20 sources) Anemia; Translations: [Anemia, unspecified] Onset: 3 09-27-2022 Episodic Deficiency and other anemia (1 source) Anemia, unspecified; Translations: [Anemia, unspecified] Onset: 5 Episodic Disorders of lipid metabolism (20 sources) Hyperlipidemia; Translations: [Hyperlipidemia, unspecified] Onset: 7 Chronic Disorders of teeth and jaw (20 sources) Bleeding gums; Translations: [Other specified disorders of gingiva and edentulous alveolar ridge] 09-01-2022 Episodic E Codes: Fall (20 sources) Fall; Translations: [Unspecified fall, initial encounter] Onset: 5 09-27-2022 Episodic Esophageal disorders (20 sources) Gastroesophageal reflux disease; Translations: [Gastro-esophageal reflux [...] valve stenosis; Translations: [Nonrheumatic aortic (valve) stenosis] Onset: 5 09-27-2022 Chronic Hyperplasia of prostate (20 sources) Benign prostatic hyperplasia; Translations: [Benign prostatic hyperplasia without lower urinary tract symptoms] Onset: Chronic Immunizations and screening for infectious disease (20 sources) Contact with or exposure to other viral diseases; Translations: [Exposure to COVID-19 virus] 11-30-2024 Episodic Inflammation; infection of eye (except that caused by tuberculosis or sexually transmitteddisease) (19 sources) Blepharitis; Translations: [Squamous blepharitis right eye, upper and lower eyelids] 08-14-2024 Episodic Malaise and fatigue (20 sources) Asthenia; Translations: [Other malaise] Episodic Nonspecific chest pain (2 sources) Chest pain; Translations: [Chest pain, unspecified] 05-09-2025 Episodic Nutritional deficiencies (20 sources) Vitamin D deficiency; Translations: [Vitamin D deficiency, unspecified] Onset: Chronic Osteoarthritis (20 sources) Osteoarthritis; Translations: [Unspecified osteoarthritis, unspecified site] Onset: 7 11-21-2006 Chronic Other aftercare (20 sources) 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; Translations: [terminal supervisor (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) use of anticoagulants] 10-20-2023 Episodic Other aftercare (10 sources) Long-term current use of diuretic; Translations: [Encounter for therapeutic drug level monitoring] 03-07-2025 Episodic Other aftercare (19 sources) Long-term current use of anticoagulant; Translations: [prison (current) use of anticoagulants] 03-17-2025 Episodic Other and unspecified benign neoplasm (20 sources) History of polyp of colon; Translations: [Personal history of colonic polyps] Onset: 7 Resolved: 7 09-27-2022 Episodic Other circulatory disease (20 sources) Orthostatic hypotension; Translations: [Orthostatic hypotension] Onset: 3 09-27-2022 Episodic Other circulatory disease (7 sources) H/O: atrial fibrillation; Translations: [Personal history of other diseases of the circulatory system] 03-17-2025 Episodic Other connective tissue disease (20 sources) Foot pain; Translations: [Pain in right foot] 09-27-2022 Episodic Other connective tissue disease (20 sources) Extensor tenosynovitis of wrist; Translations: [Other [...] and adnexa] 08-14-2024 Episodic Other gastrointestinal disorders (17 sources) Chronic idiopathic constipation; Translations: [Chronic idiopathic constipation] Onset: 7 11-02-2016 Chronic Other gastrointestinal disorders (20 sources) Occult blood in stools; Translations: [Other fecal abnormalities] Onset: 5 12-23-2021 Episodic Other gastrointestinal disorders (20 sources) Dysphagia; Translations: [Dysphagia, unspecified] 11-15-2024 Episodic Other gastrointestinal disorders (1 source) Personal history of other diseases of the digestive system; Translations: [History of lower GI bleeding] Onset: 5 Episodic Other gastrointestinal disorders (2 sources) History of lower gastrointestinal bleed; Translations: [Personal history of other diseases of the digestive system] Onset: 5 05-13-2025 Episodic Other hereditary and degenerative nervous system conditions (1 source) Mild cognitive disorder ; Translations: [Mild cognitive impairment, so stated] Onset: 4 05-13-2025 Chronic Other inflammatory condition of skin (20 sources) Psoriasis; Translations: [Psoriasis, unspecified] Onset: 7 Resolved: 7 09-27-2022 Chronic Other inflammatory condition of skin (17 sources) Rosacea; Translations: [Rosacea, unspecified] Onset: 8 08-30-2008 Chronic Other inflammatory condition of skin (2 sources) Psoriasis, unspecified; Translations: [Other psoriasis] 03-24-2023 Chronic Other injuries and conditions due to external causes (20 sources) Fracture of bone; Translations: [Unspecified multiple injuries, initial encounter] 09-27-2022 Episodic Comment on above: Bilateral wrists, le ft patella and nasal bone Other injuries and conditions due to external causes (10 sources) Injury of right foot; Translations: [Unspecified injury of right foot, initial encounter] 03-10-2025 Episodic Other liver diseases (20 sources) Disease of liver; Translations: [Liver disease, unspecified] Onset: 9 Resolved: 7 07-24-2020 Chronic Other liver diseases (20 sources) Primary biliary cholangitis; 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] Onset: 1 11-02-2016 Chronic Other liver diseases (1 source) Primary biliary cirrhosis; 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 (HCC)] Onset: 7 Chronic Other lower respiratory disease (20 sources) Dyspnea; Translations: [Shortness of breath] Onset: 5 12-23-2021 Episodic Other lower respiratory disease (20 sources) H/O: pneumonia; Translations: [Personal history of pneumonia (recurrent)] 08-05-2020 Episodic Other lower respiratory disease (20 sources) Restrictive lung disease; Translations: [Other disorders of lung] Onset: 5 09-27-2022 Episodic Other lower respiratory disease (4 sources) Other disorders of lung; Translations: [Other diseases of lung, not elsewhere classified] Episodic Other lower respiratory disease (20 sources) H/O: asthma; Translations: [Personal history of other diseases of the respiratory system] 04-22-2023 Episodic Other lower respiratory disease (20 sources) Cough; Translations: [Cough] Onset: 7 Resolved: 6 04-22-2023 Episodic Other lower respiratory disease (1 source) Shortness of breath; Translations: [Shortness of breath] Onset: 5 Episodic Other nervous system disorders (18 sources) Disorder of brain; Translations: [Encephalopathy, unspecified] 12-08-2023 Chronic Other nervous system disorders (2 sources) Encephalopathy, unspecified; Translations: [Encephalopathy, unspecified] 12-08-2023 Chronic Other non-epithelial cancer of skin (20 sources) History of malignant neoplasm of skin; Translations: [Personal history of other malignant neoplasm of skin] Onset: 5 09-27-2022 Episodic Other nutritional; endocrine; and metabolic [...] Seasonal allergy; Translations: [Other seasonal allergic rhinitis] Onset: 5 09-27-2022 Chronic Other upper respiratory disease (18 sources) Allergic rhinitis; Translations: [Allergic rhinitis, unspecified] 12-08-2023 Chronic Other upper respiratory disease (2 sources) Allergic rhinitis, unspecified; Translations: [Allergic rhinitis, cause unspecified] 12-08-2023 Chronic Other upper respiratory disease (20 sources) Bleeding from nose; Translations: [Epistaxis] Onset: 3 03-21-2023 Episodic Other upper respiratory disease (15 sources) Anterior epistaxis; Translations: [Epistaxis] 03-17-2025 Episodic Other upper respiratory disease (2 sources) Epistaxis; Translations: [Epistaxis] Onset: 5 Episodic Alexandra-; endo-; and myocarditis; cardiomyopathy (except that caused by tuberculosis or sexually transmitted disease) (20 sources) Cardiomyopathy; Translations: [Cardiomyopathy, unspecified] 12-06-2023 Chronic Pneumonia (except that caused by tuberculosis or sexually transmitted disease) (20 sources) Pneumonia; Translations: [Pneumonia, unspecified organism] 12-08-2023 Episodic Residual codes; unclassified (20 sources) History of colectomy; Translations: [Acquired absence of other specified parts of digestive tract] Onset: 5 09-27-2022 Episodic Residual codes; unclassified (20 sources) Memory impairment; Translations: [Other amnesia] Onset: 5 05-14-2021 Episodic Residual codes; unclassified (10 sources) Other amnesia; Translations: [Memory loss] Episodic Residual codes; unclassified (12 sources) Edema of lower leg ; Translations: [Localized edema] 03-07-2025 Episodic Residual codes; unclassified (4 sources) Other specified personal risk factors, not elsewhere classified; Translations: [Other specified personal history presenting hazards to health] Onset: 5 05-13-2025 Episodic Residual codes; unclassified (2 sources) At risk of hemorrhage; Translations: [Other specified personal risk factors, not elsewhere classified] Onset: 5 05-13-2025 Episodic Retinal detachments; defects; vascular occlusion; and retinopathy (2 sources) Epiretinal membrane of left eye; Translations: [Puckering of macula, left eye] 06-01-2023 Chronic Rheumatoid arthritis and related disease (20 sources) Rheumatoid arthritis; Translations: [Rheumatoid arthritis, unspecified] 09-27-2022 Chronic Septicemia (except in labor) (20 sources) Sepsis; Translations: [Sepsis, unspecified organism] 12-02-2023 Episodic Spondylosis; intervertebral disc disorders; other back problems (20 sources) Degeneration of cervical intervertebral disc; Translations: [Other cervical disc degeneration, unspecified cervical region] Onset: 3 Resolved: 7 09-27-2022 Chronic Comment on above: Worst at C5-6 and C6 -7. Sprains and strains (20 sources) Sprain of wrist; Translations: [Unspecified sprain of right wrist, initial encounter] 01-22-2023 Episodic Unclassified (8 sources) Anterior epistaxis on Eliquis Unclassified (1 source) Chronic atrial fibrillation, unspecified; Translations: [Chronic atrial fibrillation, unspecified] Onset: Unclassified (1 source) Contact with and (suspected) exposure to COVID-19; Translations: [Contact with and (suspected) exposure to COVID-19] Onset: 5 Urinary tract infections (20 sources) Urinary tract infectious disease; Translations: [Urinary [...] Date Documented Da te Episodic/Chronic Allergic reactions (12 sources) Atopic dermatitis; Translations: [Other atopic dermatitis] Onset: 8 Resolved: 7 11-02-2016 Chronic Gastrointestinal hemorrhage (12 sources) Gastrointestinal hemorrhage; Translations: [Gastrointestinal hemorrhage, unspecified] Onset: 6 Resolved: 7 11-02-2016 Episodic Other and unspecified benign neoplasm (17 sources) Dysplasia of colon; Translations: [Polyp of colon] Onset: 7 11-02-2016 Episodic Other circulatory disease (12 sources) Disorder of capillaries; Translations: [Disease of capillaries, unspecified] Onset: 8 Resolved: 7 11-02-2016 Episodic Other connective tissue disease (12 sources) Plantar fascial fibromatosis; Translations: [Plantar fascial fibromatosis] Onset: 9 Resolved: 7 11-02-2016 Episodic Other gastrointestinal disorders (1 source) Dysphagia, unspecified; Translations: [Dysphagia, unspecified] Onset: 5 Episodic Other inflammatory condition of skin (20 sources) Seborrheic dermatitis; Translations: [Other seborrheic dermatitis] Onset: 8 Resolved: 7 08-30-2008 Episodic Other liver diseases (12 sources) Biliary cirrhosis; Translations: [Biliary cirrhosis, unspecified] Onset: 7 Resolved: 0 08-26-2010 Chronic Other lower respiratory disease (12 sources) Finding of respiration; Translations: [Other forms of dyspnea] Onset: 7 Resolved: 6 06-22-2016 Episodic Other nervous system disorders (12 sources) Abnormal gait; Translations: [Unspecified abnormalities of gait and mobility] Onset: 7 Resolved: 7 11-02-2016 Episodic Other screening for suspected conditions (not mental disorders or infectious disease) (20 sources) Raised prostate specific antigen; Translations: [Elevated prostate specific antigen [PSA]] Onset: 7 Resolved: 7 11-02-2016 Episodic Other skin disorders (12 sources) Finding of region of thorax; Translations: [Localized swelling, mass and lump, trunk] Onset: 7 Resolved: 7 11-02-2016 Episodic Other skin disorders (12 sources) Seborrheic keratosis; Translations: [Other seborrheic keratosis] Onset: 9 Resolved: 7 11-02-2016 Episodic Other upper respiratory infections (20 sources) Sore throat symptom; Translations: [Acute pharyngitis, unspecified] Onset: 5 11-30-2024 Episodic Residual codes; unclassified (12 sources) Flushing; Translations: [Flushing] Onset: 8 Resolved: 7 11-02-2016 Episodic Spondylosis; intervertebral disc disorders; other back problems (20 sources) Chronic low back pain; Translations: [Lumbago with sciatica, unspecified side] Onset: 7 Resolved: 7 12-23-2015 Episodic Results Test Name Value Interpretation Reference Range Facility [facility] 05-14-2025 CNOV Office Visit (AGCARDPOB) ---- JESSEE RUST ([id number]) 1935 M Date Time Provider Department 05/14/25 2:20 PM CORINA NGUYEN AGCARDPOB During your visit today, we recorded the following information about you: Pulse Blood pressure Weight 52/minute 161/84 101.5 kg Corina Nguyen MD 05/14/2025 5:30 PM Signed PRIMARY CARE PHYSICIAN: Addi Mario ([facility]) [address] [place] [address] REFERRING PHYSICIAN: Odalis Schmidt MD [address] [facility] [id number] Patient Care Team: Addi Mario MD as PCP - General (Internal Medicine) Gretchen Nguyen CNP as Nurse Practitioner (Internal Medicine) Odalis Schmidt as Specialty Oyster Washer (Cardiology) Recording using cheerapp software for draft documentation of the visit was discussed with the patient/authorized dermatology sales representative; all questions welcomed and answered. Patient/authorized dermatology sales representative agreed to proceed CHIEF COMPLAINT: Evaluation of arrhythmia HISTORY OF PRESENT ILLNESS: Mr. Rust is a 89 year old male who presents today for evaluation of management of atrial fibrillation and stroke risk. He is accompanied by his but also his son and daughter by telephone speaker phone. Patient Overview: Mr. Rust is referred for evaluation of atrial fibrillation by [facility]. The atrial fibrillation has been increasing in frequency and duration recently. He reports symptoms of fatigue, though he has a long-standing history of fatigue. He has also been found to have bradycardia. Records from [facility] indicate suspicion that the atrial fibrillation is not substantially symptomatic. There is concern about unfavorable risk to benefit for oral anticoagulation therapy. He was seen by Dr. Schmidt of [facility] on 03/21/2025. He has a complex cardiovascular history, including coronary artery disease with previous stenting of the LAD in 2009 and 2016. He had an NSTEMI in November 2023 and underwent cardiac catheterization that revealed no severe stenosis requiring intervention; he was treated medically. An echocardiogram at that time revealed mild left ventricular systolic dysfunction, LVEF 45%. In February 2025, the patient reported that his Apple Watch had identified atrial fibrillation. A 48-hour monitor was performed, and he was in atrial fibrillation 98% of the time, with PVCs about 4% burden. Medical records indicate the patient has no symptoms attributable to the atrial fibrillation, and the only way he knows he is in atrial fibrillation is by checking his Apple Watch. He has a history of primary biliary cirrhosis, GI bleeding, and nosebleeds. The more recent nosebleed required packing and electrocautery. He has been treated with Eliquis oral anticoagulation therapy for stroke prevention from the atrial fibrillation, but there seems to be unfavorable risks to benefit, given the bleeding. He has also been documented to have bradycardia down to 27 beats per minute, and there is concern that he also has sleep apnea. In addition to GI bleeding, he has chronic thrombocytopenia. Referral is made with the question of whether the patient should have treatment for the atrial fibrillation given the lack of symptoms and advanced age, and also whether he would be a candidate for Watchman left atrial appendage closure device. Noted in the medical records is sinus bradycardia, indicating some degree of sinus node dysfunction. Diagnostic Results: - Echocardiogram (04/02/2025): - Normal left ventricular size and systolic function - LVEF: 55% - Mild concentric LVH - Stage 1 diastolic dysfunction - Moderate biatrial dilation - Moderate mitral valve regurgitation - Moderate tricuspid valve regurgitation - Moderate aortic valve stenosis - 48-hour monitor (February 2025): - Atrial fibrillation: 98% of the time - PVCs: 4% burden Items for Follow-Up Today: - Evaluation of atrial fibrillation and its management - Consideration of Watchman left atrial appendage closure device candidacy The patient is an 89-year-old male with a history of CAD, status post LAD stenting in 2009 and 2016, NSTEMI in 11/2023, and primary biliary cirrhosis, presenting for evaluation of atrial fibrillation. The patient was referred by [facility] for evaluation of atrial fibrillation, which has been increasing in frequency and duration. He reports symptoms of fatigue, though he has a long-standing history of fatigue. He also experiences mild dyspnea when walking uphill. He denies palpitations, lightheadedness, or syncope. He has been found to have bradycardia, with heart rates documented as low as 27 bpm -- this was by his Apple Watch, so might have represented falsely low reading if he was having frequent PVCs at that time --- aka pulse deficit (more content not included)... Normal [facility] ECG B/O W INTERP (MED OFFICE )on 05-14-2025 Interpretation and review of laboratory results Abnormal [facility] Atrial fibrillation with controlled ventricular response, average 61 bpm; normal QRS duration 86 ms; QTc 446 ms [facility] Anion gap in Serum or Plasma Ordered By: Maurice Longoria on 05-08-2025 Anion gap [Moles/Vol] 9 mmol/L 01-31 [facility] BUN/creatinine ratioOrdered By: Maurice Longoria on 05-08-2025 Urea nitrogen/Creatinine [Mass ratio] 16.2 mg/mg 07-08 [facility] Bilirubin, totalOrdered By: Maurice Longoria on 05-08-2025 Bilirubin [Mass/Vol] 0.61 mg/dL 0.00-1.30 [facility] CBC-Complete Blood Cnt No Di ffon 05-08-2025 Erythrocyte distribution width (RBC) [Ratio] 15.2 % High 11.6-14.6 [facility] Comment on above: Performed By: #### L 503.7505, L501.9520, L100.0500, L500.4050 ####[facility] [id number] [place], [address] Hematocrit (Bld) [Volume fraction] 37.0 % Low 40-54 [facility] Comment on above: Performed By: #### L 503.7505, L501.9520, L100.0500, L500.4050 ####[facility] [address] [place], [address] Hemoglobin (Bld) [Mass/Vol] 11.8 g/dL Low 13.0-16.5 [facility] Comment on above: Performed By: #### L 503.7505, L501.9520, L100.0500, L500.4050 ####[facility] [address] [place], [address] MCH (RBC) [Entitic mass] 30.7 pg Normal 27.0-32.0 [facility] Comment on above: Performed By: #### L 503.7505, L501.9520, L100.0500, L500.4050 ####[facility] [address] [place], [address] MCHC (RBC) [Mass/Vol] 31.9 g/dL Low 32-36 [facility] Comment on above: Performed By: #### L 503.7505, L501.9520, L100.0500, L500.4050 ####[facility] [address] [place], [address] MCV (RBC) [Entitic vol] 96.4 fL High 80-94 [facility] Comment on above: Performed By: #### L 503.7505, L501.9520, L100.0500, L500.4050 ####[facility] [address] [place], [address] Platelet mean volume (Bld) [Entitic vol] 11.2 fL Normal 6.2-12.0 [facility] Comment on above: Performed By: #### L 503.7505, L501.9520, L100.0500, L500.4050 ####[facility] [address] [place], [address] Platelets (Bld) [#/Vol] 114 10*3/uL Low 150-450 [facility] Comment on above: Performed By: #### L 503.7505, L501.9520, L100.0500, L500.4050 ####[facility] [address] [place], [address] RBC (Bld) [#/Vol] 3.84 10*6/uL Low 4.6-6.2 [facility] Comment on above: Performed By: #### L 503.7505, L501.9520, L100.0500, L500.4050 ####[facility] [address] [place], [address] RDW SD 54.4 fl High 35.1-43.9 [facility] Comment on above: Performed By: #### L 503.7505, L501.9520, L100.0500, L500.4050 ####[facility] [address] [place], [address] WBC (Bld) [#/Vol] 6.7 10*3/uL Normal 4.4-11.0 [facility] Comment on above: Performed By: #### L 503.7505, L501.9520, L100.0500, L500.4050 ####[facility] [address] [place], [address] Carbon dioxide, total [Moles /volume] in Central venous bloodOrdered By: Maurice Longoria on 05-08-2025 CO2 [Moles/Vol] 26.6 mmol/L 21.0-32.0 [facility] Chloride assayOrdered By: Daniel Longoria on 05-08-2025 Chloride [Moles/Vol] 104 mmol/L 98-108 [facility] Comprehensive Metabolic Prof ilon 05-08-2025 Albumin [Mass/Vol] 3.5 g/dL Normal 3.4-4.8 [facility] Comment on above: Order Comment: PT DO ES NOT WANT STOOL SAMPLE Performed By: #### L 503.7505, L501.9520, L100.0500, L500.4050 ####[facility] [address] [place], [address] Albumin/Globulin [Mass ratio] 0.9 {ratio} Normal 0.9-2.4 [facility] Comment on above: Order Comment: PT DO ES NOT WANT STOOL SAMPLE Performed By: #### L 503.7505, L501.9520, L100.0500, L500.4050 ####[facility] [address] [place], [address] ALK PHOS 74 U/L Normal 40-129 [facility] Comment on above: Order Comment: PT DO ES NOT WANT STOOL SAMPLE Performed By: #### L 503.7505, L501.9520, L100.0500, L500.4050 ####[facility] [address] [place], [address] ALT [Catalytic activity/Vol] 11 U/L Normal <=46 [facility] Comment on above: Order Comment: PT DO ES NOT WANT STOOL SAMPLE Performed By: #### L 503.7505, L501.9520, L100.0500, L500.4050 ####[facility] [address] [place], [address] AST [Catalytic activity/Vol] 23 U/L Normal <=37 [facility] Comment on above: Order Comment: PT DO ES NOT WANT STOOL SAMPLE Performed By: #### L 503.7505, L501.9520, L100.0500, L500.4050 ####[facility] [address] [place], [address] Bilirubin [Mass/Vol] 0.61 mg/dL Normal 0.00-1.30 [facility] Comment on above: Order Comment: PT DO ES NOT WANT STOOL SAMPLE Performed By: #### L 503.7505, L501.9520, L100.0500, L500.4050 ####[facility] [address] [place], [address] BUN/CRE 16.2 RATIO Normal 10-20 [facility] Comment on above: Order Comment: PT DO ES NOT WANT STOOL SAMPLE Performed By: #### L 503.7505, L501.9520, L100.0500, L500.4050 ####[facility] [address] [place], [address] Calcium [Mass/Vol] 9.2 mg/dL Normal 7.6-11.0 [facility] Comment on above: Order Comment: PT DO ES NOT WANT STOOL SAMPLE Performed By: #### L 503.7505, L501.9520, L100.0500, L500.4050 ####[facility] [address] [place], [address] Chloride [Moles/Vol] 104 mmol/L Normal 98-108 [facility] Comment on above: Order Comment: PT DO ES NOT WANT STOOL SAMPLE Performed By: #### L 503.7505, L501.9520, L100.0500, L500.4050 ####[facility] [address] [place], [address] CO2 [Moles/Vol] 26.6 mmol/L Normal 21.0-32.0 [facility] Comment on above: Order Comment: PT DO ES NOT WANT STOOL SAMPLE Performed By: #### L 503.7505, L501.9520, L100.0500, L500.4050 ####[facility] [address] [place], [address] Creatinine [Mass/Vol] 1.02 mg/dL Normal 0.70-1.20 [facility] Comment on above: Order Comment: PT DO ES NOT WANT STOOL SAMPLE Performed By: #### L 503.7505, L501.9520, L100.0500, L500.4050 ####[facility] [address] [place], [address] GAP 9 Normal 5-15 [facility] Comment on above: Order Comment: PT DO ES NOT WANT STOOL SAMPLE Performed By: #### L 503.7505, L501.9520, L100.0500, L500.4050 ####[facility] [address] [place], [address] GFR/1.73 sq M.predicted among non-blacks MDRD (S/P/Bld) [Vol rate/Area] 71 mL/min/{1.73_m2} Normal >60 [facility] Comment on above: Order Comment: PT DO ES NOT WANT STOOL SAMPLE Result Comment: mL/m in/1.73m2 CKD-EPI Creatinine Equation (2020) Performed By: #### L 503.7505, L501.9520, L100.0500, L500.4050 ####[facility] [address] [place], [address] Globulin (S) [Mass/Vol] 3.8 g/dL Normal 2.2-4.2 [facility] Comment on above: Order Comment: PT DO ES NOT WANT STOOL SAMPLE Performed By: #### L 503.7505, L501.9520, L100.0500, L500.4050 ####[facility] [address] [place], [address] Glucose [Mass/Vol] 95 mg/dL Normal 70-99 [facility] Comment on above: Order Comment: PT DO ES NOT WANT STOOL SAMPLE Performed By: #### L 503.7505, L501.9520, L100.0500, L500.4050 ####[facility] [address] [place], [address] Potassium [Moles/Vol] 4.3 mmol/L Normal 3.3-5.1 [facility] Comment on above: Order Comment: PT DO ES NOT WANT STOOL SAMPLE Performed By: #### L 503.7505, L501.9520, L100.0500, L500.4050 ####[facility] [address] [place], [address] Sodium [Moles/Vol] 140 mmol/L Normal 133-145 [facility] Comment on above: Order Comment: PT DO ES NOT WANT STOOL SAMPLE Performed By: #### L 503.7505, L501.9520, L100.0500, L500.4050 ####[facility] [address] [place], [address] T PROT 7.4 g/dL Normal 5.9-8.4 [facility] Comment on above: Order Comment: PT DO ES NOT WANT STOOL SAMPLE Performed By: #### L 503.7505, L501.9520, L100.0500, L500.4050 ####[facility] [address] [place], [address] Urea nitrogen [Mass/Vol] 17 mg/dL Normal 4-19 [facility] Comment on above: Order Comment: PT DO ES NOT WANT STOOL SAMPLE Performed By: #### L 503.7505, L501.9520, L100.0500, L500.4050 ####[facility] [address] [place], [address] Erythrocyte distribution wid th ratioOrdered By: Maurice Longoria on 05-08-2025 Erythrocyte distribution width (RBC) [Ratio] 15.2 % High 11.6-14.6 [facility] Erythrocyte distribution wid th standard deviationOrdered By: Maurice Longoria on 05-08-2025 Erythrocyte distribution width (RBC) [Ratio] 54.4 fl High 35.1-43.9 [facility] Glomerular filtration rate ( GFR) estimation/1.73 sq m using serum, plasma, or whole bOrdered By: Maurice Longoria on 05-08-2025 GFR/1.73 sq M.predicted among non-blacks MDRD (S/P/Bld) [Vol rate/Area] 71 mL/min/{1.73_m2} >60 [facility] Comment on above: mL/min/1.73m2 CKD-EP I Creatinine Equation (2020) Hematocrit Auto (Bld) [Volum e fraction]Ordered By: Maurice Longoria on 05-08-2025 Hematocrit (Bld) [Volume fraction] 37.0 % Low 40-54 [facility] Hemoglobin measurementOrdere d By: Maurice Longoria on 05-08-2025 Hemoglobin (Bld) [Mass/Vol] 11.8 g/dL Low 13.0-16.5 [facility] Internal Medicine Office Vis gayla 05-08-2025 Internal Medicine Office Visit [facility] [address] [place] [address] [address] [place], [place] [address] OFFICE VISIT Date of Service: 05/08/25 MR#: [id number] Acct: [id number] Name: JESSEE RUST Rep #: [id number] : 1935 Provider: BASSEM Cristina Age/Sex: 89/M Location: [facility] Status: Signed Intake Vital Signs 04/19/25 13:54 05/08/25 10:21 Height 6 ft 6 ft Weight: 228 lb 220 lb BMI 30.9 29.8 BP 120/62 108/72 Blood Pressure Location Lt brachial Lt brachial Position Sitting Sitting Respiration 18 18 Pulse 63 42 L Pulse Source Monitor Auscultation Temp 98.2 F 96.3 F L Temp Source Temporal Temporal Pulse Oximetry (%) 94 95 Oxygen Delivery Method room air room air Intake Visit Reasons: Shortness of breath. Pain left side. Chills Chief Complaint: SOB [employer] Assistant Required: No Accompanied by: Self Is patient in pain?: No Allergies metoprolol (From Lopressor) Allergy (Intermediate, Verified 05/08/25 10:20) Shortness of breath bee venom protein (honey bee) (bee sting) Allergy (Mild, Verified 05/08/25 10:20) Swelling Penicillins Allergy (Verified 05/08/25 10:20) Rash Medications ???Medication ???Instructions ???Recorded ???Confirmed ???Type cholecalciferol (vitamin D3) 50 50 mcg PO DAILY Supplement 1 05/08/25 History mcg (2,000 unit) tablet Disability Placard #1 ea 12/01/21 05/08/25 Rx Arthritis Compound 1 click topical DAILY PRN Pain #60 02/08/22 05/08/25 Rx CLICKS albuterol sulfate 90 mcg/actuation 2 puff inhalation Q4H PRN Asthma 04/28/23 05/08/25 Rx aerosol inhaler (Ventolin HFA) #8.5 grams nebulizer and compressor (Portable #1 ea 04/30/23 05/08/25 Rx Nebulizer System) oqsfgixe-inm-hxuzo acid 0.4 1 tab PO DAILY supplement 12/02/23 05/08/25 History mg-lycopene 300 mcg-lutein 250 mcg tablet (Centrum Silver) netarsudil 0.02 %-latanoprost 1 drp ophthalmic (eye) QHS Eye 05/08/25 History 0.005 % eye drops (Rocklatan) drops acetaminophen 500 mg tablet 1,000 mg (2 x 500 mg) PO Q6H PRN 0 12/30/23 05/08/25 Rx PRN Pain Score 1-10 #0 tabs albuterol sulfate 2.5 mg/3 mL 2.5 mg (3 mL) inhalation Q4-6H PRN 01/04/24 05/08/25 Rx (0.083 %) solution for nebulization shortness of breath or wheezing #90 mL cetirizine 10 mg tablet 10 mg PO DAILY PRN 01/23/24 History sennosides 8.6 mg-docusate sodium 1 tab-cap PO QHS 01/23/24 5 History 50 mg tablet (Senokot-S) nitroglycerin 0.4 mg sublingual 0.4 mg sublingual Q5-15M PRN chest 05/01/24 05/08/25 Rx tablet pain #25 tabs finasteride 5 mg tablet 5 mg PO DAILY BPH #90 tabs 4 05/08/25 Rx famotidine 20 mg tablet 20 mg PO DAILY GERD #90 tabs 09/1005/08/25 Rx atorvastatin 20 mg tablet 20 mg PO QHS cholesterol #90 tabs 10/22/24 05/08/25 Rx potassium chloride 10 mEq 10 meq PO QDAY With Lasix #90 tabs 11/15/24 05/08/25 Rx tablet,extended release(part/cryst) brinzolamide 1 %-brimonidine 0.2 % 1 drp ophthalmic (eye) DAILY 05/08/25 History eye drops,suspension (Simbrinza) budesonide-formoter ol HFA 160 2 puff inhalation BID Asthma #1 ea 12/14/24 05/08/25 Rx mcg-4.5 mcg/actuation aerosol inhaler (Symbicort) ferrous sulfate 325 mg (65 mg 325 mg PO QODAY Supplement #90 tab s 02/05/25 05/08/25 Rx iron) tablet ursodiol 500 mg tablet 500 mg PO BID #180 tabs 02/14/25 0 05/08/25 Rx apixaban 5 mg tablet (Eliquis) 5 mg PO BID #60 tabs 03/26/2504/20 Rx furosemide 40 mg tablet 20 mg PO DAILY 04/19/25 05/08/25 H istory Have you fallen in the past year?: No Nurse's Note: middle of the night woke up with SOB chills pain in left side shaking dizzy this was night before last felt dizzy then in the morning and then woke up this morning with some dizziness as well but the other symptoms better does have AFIB PFSH Medical History Bradycardia Immunity status testing Sore [...] vertical fracture of left patella History of (more content not included)... Normal [facility] Laboratory - Chemistry and C hemistry - challengeOrdered By: Maurice Longoria on 05-08-2025 AST [Catalytic activity/Vol] 23 U/L <38 [facility] MCV (mean corpuscular volume ) determinationOrdered By: Maurice Longoria on 05-08-2025 MCV (RBC) [Entitic vol] 96.4 fL High 80-94 [facility] Mean corpuscular hemoglobin (MCH) determinationOrdered By: Maurice Longoria on 05-08-2025 MCH (RBC) [Entitic mass] 30.7 pg 27.0-32.0 [facility] Mean corpuscular hemoglobin concentration (MCHC) determinationOrdered By: Maurice Longoria on 05-08-2025 MCHC (RBC) [Mass/Vol] 31.9 g/dL Low 32-36 [facility] Mean platelet volume determi nationOrdered By: Maurice Longoria on 05-08-2025 Platelet mean volume (Bld) [Entitic vol] 11.2 fL 6.2-12.0 [facility] Natriuretic peptide.B prohor khloe N-Terminal [Mass/volume] in Serum or PlasmaOrdered By: Maurice Longoria on 05-08-2025 Natriuretic peptide.B prohormone N-Terminal [Mass/Vol] 3073 pg/mL High <1800 [facility] Comment on above: Heart Failure Unlike ly: < 300 pg/mLHeart Failure Likely< 50 Years: > 450 pg/mL50-75 Years: > 900 pg/mL>75 Years: > 1800 pg/mL Platelet countOrdered By: Daniel Longoria on 05-08-2025 Platelets (Bld) [#/Vol] 114 10*3/uL Low 150-450 [facility] Potassium measurement (mass/ volume)Ordered By: Maurice Longoria on 05-08-2025 Potassium (Unsp spec) [Mass/Vol] 4.3 mmol/L 3.3-5.1 [facility] Pro- Brain NATRIURETIC PEPTI Scotty 05-08-2025 Natriuretic peptide B (Bld) [Mass/Vol] 3073 pg/mL High <=1800 [facility] Comment on above: Order Comment: PT DO ES NOT WANT STOOL SAMPLE Result Comment: Hear t Failure Unlikely: < 300 pg/mL Heart Failure Likely < 50 Years: > 450 pg/mL 50-75 Years: > 900 pg/mL >75 Years: > 1800 pg/mL Performed By: #### L 503.7505, L501.9520, L100.0500, L500.4050 ####[facility] [address] [place], [place], [id number] RBC Auto (Bld) [#/Vol]Ordere d By: Maurice Longoria on 05-08-2025 RBC (Bld) [#/Vol] 3.84 10*6/uL Low 4.6-6.2 [facility] Serum creatinine measurement (mass/volume)Ordered By: Maurice Longoria on 05-08-2025 Creatinine [Mass/Vol] 1.02 mg/dL 0.70-1.20 [facility] Serum globulin measurementOr dered By: Maurice Longoria on 05-08-2025 Globulin (S) [Mass/Vol] 3.8 g/dL 2.2-4.2 [facility] Serum glucose measurement (m ass/volume)Ordered By: Maurice Longoria on 05-08-2025 Glucose [Mass/Vol] 95 mg/dL 70-99 [facility] Serum or plasma alanine castellano otransferase (ALT) measurementOrdered By: Maurice Longoria on 05-08-2025 ALT [Catalytic activity/Vol] 11 U/L <47 [facility] Serum or plasma albumin tay urement (mass/volume)Ordered By: Maurice Longoria on 05-08-2025 Albumin [Mass/Vol] 3.5 g/dL 3.4-4.8 [facility] Serum or plasma albumin/glob ulin mass ratioOrdered By: Maurice Longoria on 05-08-2025 Albumin/Globulin [Mass ratio] 0.9 {ratio} 0.9-2.4 [facility] Serum or plasma alkaline lyndsey sphatase measurementOrdered By: Maurice Longoria on 05-08-2025 ALP [Catalytic activity/Vol] 74 U/L 40-129 [facility] Serum or plasma calcium tay urement (mass/volume)Ordered By: Maurice Longoria on 05-08-2025 Calcium [Mass/Vol] 9.2 mg/dL 7.6-11.0 [facility] Serum or plasma urea nitroge n measurement (mass/volume)Ordered By: Maurice Longoria on 05-08-2025 Urea nitrogen [Mass/Vol] 17 mg/dL 4-19 [facility] Sodium levelOrdered By: Forrest Longoria on 05-08-2025 Sodium [Moles/Vol] 140 mmol/L 133-145 [facility] TSH DL <= 0.005 mIU/L QnOrde red By: Maurice Longoria on 05-08-2025 TSH Qn 2.530 uIU/mL 0.300-4.200 [facility] Thyroid Stim Hormone (TSH)on 05-08-2025 TSH 2.530 uIU/mL Normal 0.300-4.200 [facility] Comment on above: Order Comment: PT DO ES NOT WANT STOOL SAMPLE Performed By: #### L 503.7506, L501.6572, L100.0500, L500.1970 ####[facility] [address] [place], [address] Total proteinOrdered By: Tereso Longoria on 05-08-2025 Protein [Mass/Vol] 7.4 g/dL 5.9-8.4 [facility] White blood cell (WBC) count Ordered By: Maurice Longoria on 05-08-2025 WBC (Bld) [#/Vol] 6.7 10*3/uL 4.4-11.0 [facility] Internal Medicine Office Vis iton 04-19-2025 Internal Medicine Office Visit [facility] [address] [place] [address] [place] [address] OFFICE VISIT Date of Service: 04/19/25 MR#: [id number] Acct: [id number] Name: JESSEE RUST Rep #: [id number] : 1935 Provider: HUAN oconnor Age/Sex: 89/M Location: [facility] Status: Signed Intake Vital Signs 03/21/25 10:57 04/19/25 13:54 Height 6 ft 6 ft Weight: 225 lb 228 lb BMI 30.5 30.9 BP 158/77 H 120/62 Blood Pressure Location Lt brachial Lt brachial Position Sitting Sitting Respiration 18 18 Pulse 57 L 63 Pulse Source Monitor Monitor Temp 98.2 F Temp Source Temporal Pulse Oximetry (%) 94 94 Oxygen Delivery Method room air room air Intake Visit Reasons: [facility] FU Chief Complaint: [facility] FU Is patient in pain?: No Allergies metoprolol (From Lopressor) Allergy (Intermediate, Verified 04/19/25 13:49) Shortness of breath bee venom protein (honey bee) (bee sting) Allergy (Mild, Verified 04/19/25 13:49) Swelling Penicillins Allergy (Verified 04/19/25 13:49) Rash Medications ???Medication ???Instructions ???Recorded ???Confirmed ???Type cholecalciferol (vitamin D3) 50 50 mcg PO DAILY Supplement 1 04/19/25 History mcg (2,000 unit) tablet Disability Placard #1 ea 12/01/21 04/19/25 Rx Arthritis Compound 1 click topical DAILY PRN Pain #60 02/08/22 04/19/25 Rx CLICKS albuterol sulfate 90 mcg/actuation 2 puff inhalation Q4H PRN Asthma 04/28/23 04/19/25 Rx aerosol inhaler (Ventolin HFA) #8.5 grams nebulizer and compressor (Portable #1 ea 04/30/23 04/19/25 Rx Nebulizer System) fpsnrsvl-eqx-gnzrr acid 0.4 1 tab PO DAILY supplement 12/02/23 04/19/25 History mg-lycopene 300 mcg-lutein 250 mcg tablet (Centrum Silver) netarsudil 0.02 %-latanoprost 1 drp ophthalmic (eye) QHS Eye 04/19/25 History 0.005 % eye drops (Rocklatan) drops acetaminophen 500 mg tablet 1,000 mg (2 x 500 mg) PO Q6H PRN 0 12/30/23 04/19/25 Rx PRN Pain Score 1-10 #0 tabs albuterol sulfate 2.5 mg/3 mL 2.5 mg (3 mL) inhalation Q4-6H PRN 01/04/24 04/19/25 Rx (0.083 %) solution for nebulization shortness of breath or wheezing #90 mL cetirizine 10 mg tablet 10 mg PO DAILY PRN 01/23/24 History sennosides 8.6 mg-docusate sodium 1 tab-cap PO QHS 01/23/24 5 History 50 mg tablet (Senokot-S) nitroglycerin 0.4 mg sublingual 0.4 mg sublingual Q5-15M PRN chest 05/01/24 04/19/25 Rx tablet pain #25 tabs finasteride 5 mg tablet 5 mg PO DAILY BPH #90 tabs 4 04/19/25 Rx famotidine 20 mg tablet 20 mg PO DAILY GERD #90 tabs 09/1004/19/25 Rx atorvastatin 20 mg tablet 20 mg PO QHS cholesterol #90 tabs 10/22/24 04/19/25 Rx potassium chloride 10 mEq 10 meq PO QDAY With Lasix #90 tabs 11/15/24 04/19/25 Rx tablet,extended release(part/cryst) brinzolamide 1 %-brimonidine 0.2 % 1 drp ophthalmic (eye) DAILY 04/19/25 History eye drops,suspension (Simbrinza) budesonide-formoter ol HFA 160 2 puff inhalation BID Asthma #1 ea 12/14/24 04/19/25 Rx mcg-4.5 mcg/actuation aerosol inhaler (Symbicort) ferrous sulfate 325 mg (65 mg 325 mg PO QODAY Supplement #90 tab s 02/05/25 04/19/25 Rx iron) tablet ursodiol 500 mg tablet 500 mg PO BID #180 tabs 02/14/25 0 04/19/25 Rx apixaban 5 mg tablet (Eliquis) 5 mg PO BID #60 tabs 03/26/2510/13 Rx furosemide 40 mg tablet 20 mg PO DAILY 04/19/25 04/19/25 H istory Have you fallen in the past year?: No Nurse's Note: pt reports he was seen at [facility] the beginning of March for a nosebleed. [facility] Medical History Bradycardia Immunity status testing Sore [...] fractures Fall Anginal equivalent Nonrheumatic aortic valve sten (more content not included)... Normal [facility] Echocardiogram study reportO rdered By: Vanessa Simmons on 04-05-2025 Study report [facility] [address] [place] [address] Echo Complete 04/02/25 1602 MR#: [id number] Acct: [id number] Name: JESSEE RUST Rep #:[id number] : 1935 89 From: Vanessa Simmons MD Attending Dr: Dr. Odalis Schmidt MD Status: REG CLI Ordering Dr: Odalis Schmidt MD Date: 04/02/25 Location: [facility] Sex: M C Admitted: Reason For Study Reason For Study: AFIB/FLUTTER Procedure This was a 2D Doppler, Color Flow transthoracic echocardiogram. Exam performed in department. Left Ventricle Normal LV size. Mild concentric left ventricular hypertrophy. The estimated ejection fraction is 55 %. At least stage I diastolic dysfunction. Right Ventricle Normal RV size. Normal systolic function. Atria There is moderate biatrial dilatation. Mitral Valve Moderate mitral annular calcification. Moderate (2+) mitral valve insufficiency. Tricuspid Valve Normal tricuspid valve. Moderate (2+) tricuspid valve insufficiency. Pulmonary artery systolic pressure is 45 mmHg. Aortic Valve Trisinus/trileaflet aortic valve. Moderate diffuse aortic valve calcification. Moderate aortic stenosis. Mild (1+) aortic valve insufficiency. Pulmonic Valve Normal pulmonic valve. Mild (1+) pulmonic valve insufficiency. Great Vessels Normal sized aortic root. MMode/2D Measurements & Calculations RVDd: 3.9 cm LVOT diam: 2.5 cm Ao root diam: 3.7 cm LVOT area: 5.0 cm2 ____ LAV(MOD-bp): 135.4 ml LVAd ap4: 35.2 cm2 LVAd ap2: 34.4 cm2 LAV(MOD-bp) Indexed: 60.5 ml/m2 LVLd ap4: 8.2 cm LVLd ap2: 8.3 cm LAV(MOD-sp2): 126.2 ml EDV(MOD-sp4): 125.0 ml EDV(MOD-sp2): 120.5 ml LAV(MOD-sp4): 121.5 ml EDV(sp4-el): 128.4 ml EDV(sp2-el): 121.7 ml LVAs ap4: 20.7 cm2 LVAs ap2: 22.2 cm2 LVLs ap4: 6.7 cm LVLs ap2: 7.3 cm ESV(MOD-sp4): 54.4 ml ESV(MOD-sp2): 56.2 ml ESV(sp4-el): 54.4 ml ESV(sp2-el): 57.2 ml EF(MOD-sp4): 56.4 % EF(MOD-sp2): 53.4 % EF(sp4-el): 57.6 % SV(MOD-sp4): 70.5 ml SV(MOD-sp2): 64.3 ml SV(sp4-el): 74.0 ml SI(MOD-sp4): 31.5 ml/m2 SI(MOD-sp2): 28.7 ml/m2 ____ LA A4 area: 33.3 cm2 LA dimension(2D): 5.4 cm RA A4 area: 28.4 cm2 ____ TAPSE: 1.8 cm Doppler Measurements & Calculations MV E max nick: 130.6 cm/sec Ao V2 max: 364.5 cm/sec LV V1 max: 72.8 cm/sec Ao max P.5 mmHg LV V1 max P.1 mmHg Ao V2 mean: 261.6 cm/sec LV V1 mean P.2 mmHg Ao mean P.6 mmHg LV V1 mean: 51.9 cm/sec Ao V2 VTI: 77.6 cm LV V1 VTI: 16.2 cm AV (velocity ratio): 0.21 SHRUTHI(I,D): 1.0 cm2 SHRUTHI(V,D): 0.99 cm2 __ MR max nick: 578.7 cm/sec SV(LVOT): 80.6 ml PA V2 max: 82.0 cm/sec MR max P.0 mmHg PA V2 mean: 51.2 cm/sec MR mean nick: 466.6 cm/sec PA V2 VTI: 15.8 cm MR mean P.8 mmHg MR VTI: 198.4 cm ____ TR max nick: 305.2 cm/sec TR max P.3 mmHg ECHO/Echo Complete Interpretation Summary Estimated LVEF 55%. Stage I diastolic dysfunction. Moderate mitral valve regurgitation. Moderate tricuspid valve regurgitation. RVSP estimated at 45 mmHg. Moderate aortic valve stenosis with mild regurgitation. Mean peak gradient 31 mmHg. Moderate biatrial dilatation. __ Ordering Physician: Odalis Schmidt Referring Physician: Addi Mario Performed By: Shawnee Krause, RANDY, RVT 04/05/25 1037 Date _ Vanessa Simmons MD CC: Dr. Addi Mario MD; Dr. Odalis Schmidt MD ~ Date Dictated: 04/02/25 1602 Date Transcribed: 04/05/25 1037 Surgical Technology Instructor: Signed [facility] Work Phone: Echo Completeon 04-02-2025 Echo Complete [facility] [address] [place] [id number] Echo Complete 04/02/25 160 MR#: [id number] Acct: [id number] Name: JESSEE RUST Rep #: [id number] : 1935 89 From: Vanessa Simmons MD Attending Dr: Dr. Odalis Schmidt MD Status: RE G I Ordering Dr: Odalis Schmidt MD Date: 04/02/25 Location: [facility] Sex: M C Admitted: Reason For Study Reason For Study: AFIB/FLUTTER Procedure This was a 2D Doppler, Color Flow transthoracic echocardiogram. Exam performed in department. Left Ventricle Normal LV size. Mild concentric left ventricular hypertrophy. The estimated ejection fraction is 55 %. At least stage I diastolic dysfunction. Right Ventricle Normal RV size. Normal systolic function. Atria There is moderate biatrial dilatation. Mitral Valve Moderate mitral annular calcification. Moderate (2+) mitral valve insufficiency. Tricuspid Valve Normal tricuspid valve. Moderate (2+) tricuspid valve insufficiency. Pulmonary artery systolic pressure is 45 mmHg. Aortic Valve Trisinus/trileaflet aortic valve. Moderate diffuse aortic valve calcification. Moderate aortic stenosis. Mild (1+) aortic valve insufficiency. Pulmonic Valve Normal pulmonic valve. Mild (1+) pulmonic valve insufficiency. Great Vessels Normal sized aortic root. MMode/2D Measurements Calculations RVDd: 3.9 cm LVOT diam: 2.5 cm Ao root diam: 3.7 cm LVOT area: 5.0 cm2 __ LAV(MOD-bp): 135.4 ml LVAd ap4: 35.2 cm2 LVAd ap2: 34.4 cm2 LAV(MOD-bp) Indexed: 60.5 ml/m2 LVLd ap4: 8.2 cm LVLd ap2: 8.3 cm LAV(MOD-sp2): 126.2 ml EDV(MOD-sp4): 125.0 ml EDV(MOD-sp2): 120.5 ml LAV(MOD-sp4): 121.5 ml EDV(sp4-el): 128.4 ml EDV(sp2-el): 121.7 ml LVAs ap4: 20.7 cm2 LVAs ap2: 22.2 cm2 LVLs ap4: 6.7 cm LVLs ap2: 7.3 cm ESV(MOD-sp4): 54.4 ml ESV(MOD-sp2): 56.2 ml ESV(sp4-el): 54.4 ml ESV(sp2-el): 57.2 ml EF(MOD-sp4): 56.4 % EF(MOD-sp2): 53.4 % EF(sp4-el): 57.6 % __ SV(MOD-sp4): 70.5 ml SV(MOD-sp2): 64.3 ml SV(sp4-el): 74.0 ml SI(MOD-sp4): 31.5 ml/m2 SI(MOD-sp2): 28.7 ml/m2 __ LA A4 area: 33.3 cm2 LA dimension(2D): 5.4 cm RA A4 area: 28.4 cm2 __ TAPSE: 1.8 cm Doppler Measurements Calculations MV E max nick: 130.6 cm/sec Ao V2 max: 364.5 cm/sec LV V1 max: 72.8 cm/sec Ao max P.5 mmHg LV V1 max P.1 mmHg Ao V2 mean: 261.6 cm/sec LV V1 mean P.2 mmHg Ao mean P.6 mmHg LV V1 mean: 51.9 cm/sec Ao V2 VTI: 77.6 cm LV V1 VTI: 16.2 cm AV (velocity ratio): 0.21 SHRUTHI(I,D): 1.0 cm2 SHRUTHI(V,D): 0.99 cm2 __ MR max nick: 578.7 cm/sec SV(LVOT): 80.6 ml PA V2 max: 82.0 cm/sec MR max P.0 mmHg PA V2 mean: 51.2 cm/sec MR mean nick: 466.6 cm/sec PA V2 VTI: 15.8 cm MR mean P.8 mmHg MR VTI: 198.4 cm __ TR max nick: 305.2 cm/sec TR max P.3 mmHg ECHO/Echo Complete Interpretation Summary Estimated LVEF 55%. Stage I diastolic dysfunction. Moderate mitral valve regurgitation. Moderate tricuspid valve regurgitation. RVSP estimated at 45 mmHg. Moderate aortic valve stenosis with mild regurgitation. Mean peak gradient 31 mmHg. Moderate biatrial dilatation. __ Ordering Physician: Odalis Schmidt Referring Physician: Addi Mario Performed By: Shawnee Krause RDCS, RVT 04/05/25 1037 Date Vanessa Simmons MD CC: Dr. Adid Mario MD; Dr. Odalis Schmidt MD Date Dictated: 04/02/25 1602 Date Transcribed: 04/05/25 1037 Surgical Technology Instructor: Signed Normal [facility] Cardiology Visit Reporton Cardiology Visit Report [facility] [address] [place] [address] OFFICE VISIT Date of Service: 03/21/25 MR#: [id number] Acct: [id number] Name: JESSEE RUST Rep #: [id number] : 1935 Provider: Dr. Odalis franz MD Age/Sex: 89/M Location: [facility] Status: Signed HPI HPI History of Present Illness Details: Patient is a pleasant 89-year-old white male that comes in with his today for monitoring of his cardiovascular status. His son and daughter were on a conference call on the phone during the entire evaluation. The patient has a complex cardiovascular history. 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 He was recath in November 2023 when he came in with a non-STEMI. He had a 50% LAD stenosis proximal right coronary was 40% stenosis ostial right posterior descending artery was 50% stenosis. He was treated medically. His echocardiogram at that time showed an EF of 45% he did develop encephalopathy due to urinary tract infection and probable pneumonia he also has a history of thrombocytopenia and acute renal insufficiency. His renal function is subsequently completely recovered. His last echocardiogram done February 2024 showed normal LV size and LV systolic function there was moderate focal aortic valve calcification with 1+ aortic insufficiency and mild aortic stenosis. The mean gradient was 19 mmHg. The patient subsequently came to the office in early February 2025 reporting that his iWatch had identified him being in atrial fibrillation for about 2 weeks. A 48-hour monitor was performed and he was in atrial fibrillation 98% of the time. He did have about 4% PVCs but no tachycardia or runs. The patient has no symptoms from his atrial fibrillation the only way he knows he is in atrial fibs by his watch. The patient also has a history of heart failure with preserved ejection fraction he has been controlled by controlling his blood pressure and Lasix. Last BNP in early February was 3500 with normal being less than 1800 but the patient is in atrial fibrillation at this time. He denies any lower extremity edema he reports he is doing well from that perspective. The patient also has a history of primary biliary cirrhosis his last LFTs were within normal limits that was from February 14, 2025. He also has a history of GI bleeds and most recently nasal bleeding that required packing and cautery. The patient had been instituted on Eliquis when he was evaluated in early February 2025. He did have an episode of bradycardia down to 27 bpm and now his iWatch is telling him that he has sleep apnea. He has never been formally diagnosed. We are referring him to Dr. Ramy Machado at the [facility] for further evaluation for therapies for his atrial fibrillation. Intake Vital Signs 03/10/25 16:06 03/17/25 13:53 03/21/25 10:57 Height 6 ft 6 ft 6 ft Weight: 225 lb BMI 30.5 BP 158/77 H Blood Pressure Location Lt brachial Position Sitting Respiration 18 Pulse 57 L Pulse Source Monitor Pulse Oximetry (%) 94 Oxygen Delivery Method room air Intake Visit Reasons: See Note [employer] Assistant Required: No Accompanied by: Is patient in pain?: No Allergies metoprolol (From Lopressor) Allergy (Intermediate, Verified 03/21/25 10:57) Shortness of breath bee venom protein (honey bee) (bee sting) Allergy (Mild, Verified 03/21/25 10:57) Swelling Penicillins Allergy (Verified 03/21/25 10:57) Rash Medications ???Medication ???Instructions ???Recorded ???Confirmed ???Type aspirin 81 mg tablet,delayed 81 mg PO DAILY@0800 heart health 0 12/06/16 02/19/25 History release Held on 03/07/25. Instructions: Nosebleeds. cholecalciferol (vitamin D3) 50 50 mcg PO DAILY Supplement 1 03/21/25 History mcg (2,000 unit) tablet Disability Placard #1 ea 12/01/21 02/19/25 Rx Arthritis Compound 1 click topical DAILY PRN Pain #60 02/08/22 03/21/25 Rx CLICKS albuterol sulfate 90 mcg/actuation 2 puff inhalation Q4H PRN Asthma 04/28/23 03/21/25 Rx aerosol inhaler (Ventolin HFA) #8.5 grams nebulizer and compressor (Portable #1 ea 04/30/23 02/19/25 Rx Nebulizer System) voahopyd-rin-ojrfu acid 0.4 1 tab PO DAILY supplement 12/02/23 03/21/25 History mg-lycopene 300 mcg-lutein 250 mcg tablet (Centrum Silver) netarsudil 0.02 %-latanoprost 1 drp ophthalmic (eye) QHS Eye 03/21/25 History 0.005 % eye drops (Rocklatan) drops acetaminophen 500 mg tablet 1,000 mg (2 x 500 mg) PO Q6H PRN 0 12/30/23 03/21/25 Rx PRN Pain Score 1-10 #0 tabs albuterol sulfate 2.5 mg/3 mL 2.5 mg (3 mL) inhalation Q4-6H PRN 01/04/24 03/21/25 Rx (0.083 %) solution for nebulization shortness of breath or wheezing #90 mL cetirizine 10 mg tablet 10 mg PO DAILY PRN 01/23/24 His (more content not included)... Normal [facility] Emergency Department Summary on 03-17-2025 Emergency Department Summary [facility] Medical Records Department [address] [place] [address] Emergency Department Summary 03/17/25 MR#: [id number] Acct: [id number] Name: JESSEE RUST Rep #: [id number] : 1935 89 From: Denzel Chau MD PCP: Dr. Addi Mario MD Status:DEP ER Location: ED HPI HPI - URI History of Present Illness Chief Complaint: Nosebleed Detail of Chief Complaint: Recurrent right-sided nosebleed. Informant: patient Onset/Context/Timin g Onset: Today and Hours Context: Gradual Onset Timing: Intermittent Current Severity: Mild Maximum Severity: Mild Narrative Narrative: 89-year-old male history of A-fib on Eliquis. Over the last several weeks and prior history of recurrent nosebleeds. He has seen ENT office in the last 1 to 2 weeks. He had a cauterization procedure done. Last night earlier this morning he started having recurrent right-sided nosebleed. Came in the emergency department had an anterior nasal pack placed. It was doing well this afternoon he started having bleeding around the pack again. He denies any other complaints. Denies any nasal trauma. Prior similar symptoms: Yes Recent Illness/Hospitaliza tion: No ROS ROS ED ROS Narrative Denies recent illness. Nosebleed. Constitutional Constitutional ED: Denies chills or fever(s) Eyes Eyes: Denies blurry vision ENT ENT ED: Denies ear pain Cardiovascular Cardiovascular: Denies chest pain Respiratory/Chest Respiratory/Chest: Denies cough or dyspnea Gastrointestinal Gastrointestinal: Denies abdominal pain Genitourinary Genitourinary ED: Denies dysuria Musculoskeletal Musculoskeletal: Denies arthralgias Integumentary Denies abscess Neurologic Neurologic: Denies headache(s) Psychiatric Psychiatric: Denies anxiety Endocrine Endocrinology: Denies cold intolerance Hematologic/Lymphat ic Hematologic/Lymphat ic: Reports easy bleeding; Denies lymphadenopathy Allergic/Immunologi c Allergic/Immunologi c ED: Denies mouth swelling, tongue swelling or urticaria [facility] Medical History Bradycardia Immunity status testing Sore [...] Essential hypertension Atherosclerosis of coronary 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 Primary biliary cirrhosis [...] #1 ea 04/30/23 Unknown Rx Nebulizer System) jvtkrelv-buo-uoukw acid 0.4 1 tab PO DAILY supplement [...] shortness of breath or wheezing #90 mL cetirizin (more content not included)... Normal [facility] Emergency Department Summary [facility] Medical Records Department [address] [place] [address] Emergency Department Summary 03/17/25 MR#: [id number] Acct: [id number] Name: JESSEE RUST Rep #: [id number] : 1935 89 From: Hai Rand DO [...] secondary to this he presents for evaluation. [facility] Medical History Bradycardia Immunity status testing Sore [...] Essential hypertension Atherosclerosis of coronary 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 Primary biliary cirrhosis [...] #1 ea 04/30/23 Unknown Rx Nebulizer System) xxalhhpr-gii-ydrhl acid 0.4 1 tab PO DAILY supplement [...] inhaler (Symbi (more content not included)... Normal [facility] Anion gap in Serum or Plasma Ordered By: Gretchen Nguyen on 03-14-2025 Anion gap [Moles/Vol] 12 mmol/L 01-31 [facility] BUN/creatinine ratioOrdered By: Gretchen Nguyen on 03-14-2025 Urea nitrogen/Creatinine [Mass ratio] 17.6 mg/mg - [facility] Basic Metabolic Profile (BMP )on 03-14-2025 GAP 12 Normal - [facility] Comment on above: Performed By: #### L 500.2500 #### [facility] [address] [place], [address] BUN/CRE 17.6 RATIO Normal - [facility] Comment on above: Performed By: #### L 500.2500 #### [facility] [address] [place], [address] Calcium [Mass/Vol] 9.4 mg/dL Normal 7.6-11.0 [facility] Comment on above: Performed By: #### L 500.2500 #### [facility] [address] [place], [address] Chloride [Moles/Vol] 100 mmol/L Normal 98-108 [facility] Comment on above: Performed By: #### L 500.2500 #### [facility] [address] [place], [address] CO2 [Moles/Vol] 27.3 mmol/L Normal 21.0-32.0 [facility] Comment on above: Performed By: #### L 500.2500 #### [facility] [address] [place], [address] Creatinine [Mass/Vol] 1.00 mg/dL Normal 0.70-1.20 [facility] Comment on above: Performed By: #### L 500.2500 #### [facility] [address] [place], [address] GFR/1.73 sq M.predicted among non-blacks MDRD (S/P/Bld) [Vol rate/Area] 72 mL/min/{1.73_m2} Normal >60 [facility] Comment on above: Result Comment: mL/m in/1.73m2 CKD-EPI Creatinine Equation (2020) Performed By: #### L 500.2500 #### [facility] [address] [place], [address] Glucose [Mass/Vol] 98 mg/dL Normal 70-99 [facility] Comment on above: Performed By: #### L 500.2500 #### [facility] [address] [place], [address] Potassium [Moles/Vol] 4.3 mmol/L Normal 3.3-5.1 [facility] Comment on above: Performed By: #### L 500.2500 #### [facility] [address] [place], [address] Sodium [Moles/Vol] 139 mmol/L Normal 133-145 [facility] Comment on above: Performed By: #### L 500.2500 #### [facility] [address] [place], [address] Urea nitrogen [Mass/Vol] 18 mg/dL Normal 4-19 [facility] Comment on above: Performed By: #### L 500.2500 #### [facility] [address] [place], [address] Carbon dioxide, total [Moles /volume] in Central venous bloodOrdered By: Gretchen Nguyen on 03-14-2025 CO2 [Moles/Vol] 27.3 mmol/L 21.0-32.0 [facility] Chloride assayOrdered By: Oli Nguyen on 03-14-2025 Chloride [Moles/Vol] 100 mmol/L 98-108 [facility] Glomerular filtration rate ( GFR) estimation/1.73 sq m using serum, plasma, or whole bOrdered By: Gretchen Nguyen on 03-14-2025 GFR/1.73 sq M.predicted among non-blacks MDRD (S/P/Bld) [Vol rate/Area] 72 mL/min/{1.73_m2} >60 [facility] Comment on above: mL/min/1.73m2 CKD-EP I Creatinine Equation (2020) Potassium measurement (mass/ volume)Ordered By: Gretchen Nguyen on 03-14-2025 Potassium (Unsp spec) [Mass/Vol] 4.3 mmol/L 3.3-5.1 [facility] Serum creatinine measurement (mass/volume)Ordered By: Gretchen Nguyen on 03-14-2025 Creatinine [Mass/Vol] 1.00 mg/dL 0.70-1.20 [facility] Serum glucose measurement (m ass/volume)Ordered By: Gretchen Nguyen on 03-14-2025 Glucose [Mass/Vol] 98 mg/dL 70-99 [facility] Serum or plasma calcium tay urement (mass/volume)Ordered By: Gretchen Nugyen on 03-14-2025 Calcium [Mass/Vol] 9.4 mg/dL 7.6-11.0 [facility] Serum or plasma urea nitroge n measurement (mass/volume)Ordered By: Gretchen Nguyen on 03-14-2025 Urea nitrogen [Mass/Vol] 18 mg/dL 4-19 [facility] Sodium levelOrdered By: Shagufta Nguyen on 03-14-2025 Sodium [Moles/Vol] 139 mmol/L 133-145 [facility] Emergency Department Summary on 03-10-2025 Emergency Department Summary [facility] Medical Records Department [address] [place] [address] Emergency Department Summary 03/10/25 MR#: [id number] Acct: [id number] Name: JESSEE RUST Rep #: [id number] : 1935 89 From: Marisol LUEVANO PCP: Dr. Addi Mario MD Status:REG ER Location: ED HPI History of Present Illness Chief Complaint: Lower Extremity Injury Narrative Narrative: Patient resenting today with pain to his right foot after he was practicing balancing exercises Tuesday. He was standing on 1 foot while moving the opposite foot vldy-zof-[id number]. He is not of the exact mechanism of injury but reports that after performing these exercises he started to have pain in the right foot. He is able to ambulate but it is painful. He denies any other injury. [facility] Medical History Bradycardia Immunity status testing Sore [...] Essential hypertension Atherosclerosis of coronary 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 Primary biliary cirrhosis [...] #1 ea 04/30/23 Unknown Rx Nebulizer System) ugpgajja-osm-edqwj acid 0.4 1 tab PO DAILY supplement [...] hydrocortisone 2.5 % topical cream 1 applic [place] BID-QID PRN 01/04/24 Unknown Rx with perineal [...] tablet u (more content not included)... Normal [facility] Foot min 3 Viewson Foot min 3 Views [facility] Imaging Services [address] [place], [place] [id number] Foot min 3 Views MR#: [id number] Acct: [id number] Name: JESSEE RUST Rep #: [id number] : 1935 M 89 From: Vicki Ang PCP: Dr. Addi Mario MD Status: PRE ER Study: Foot min 3 Views Date of Exam: 03/10/25 Exam# [id number] Ordering Dr: Marisol Crum PROCEDURE: FOOT MIN [...] is concern for ankle pathology. Reading Location: [facility] CC: Dr. Addi Mario MD; BASSEM [employer] Instructor: Signed Normal [facility] Anion gap in Serum or Plasma Ordered By: Gretchen Nguyen on 03-07-2025 Anion gap [Moles/Vol] 11 mmol/L 01-31 [facility] BUN/creatinine ratioOrdered By: Gretchen Nguyen on 03-07-2025 Urea nitrogen/Creatinine [Mass ratio] 18.4 mg/mg - [facility] Basic Metabolic Profile (BMP )on 03-07-2025 BUN/CRE 18.4 RATIO Normal - [facility] Comment on above: Performed By: #### L 500.2500, L503.7505 #### [facility] [address] [place], [address] Calcium [Mass/Vol] 9.3 mg/dL Normal 7.6-11.0 [facility] Comment on above: Performed By: #### L 500.2500, L503.7505 #### [facility] [address] [place], [address] Chloride [Moles/Vol] 103 mmol/L Normal 98-108 [facility] Comment on above: Performed By: #### L 500.2500, L503.7505 #### [facility] [address] [place], [address] CO2 [Moles/Vol] 26.9 mmol/L Normal 21.0-32.0 [facility] Comment on above: Performed By: #### L 500.2500, L503.7505 #### [facility] [address], [address] Creatinine [Mass/Vol] 0.94 mg/dL Normal 0.70-1.20 [facility] Comment on above: Performed By: #### L 500.2500, L503.7505 #### [facility] [address] [place], [address] GAP 11 Normal 5-15 [facility] Comment on above: Performed By: #### L 500.2500, L503.7505 #### [facility] [address] [place], [address] GFR/1.73 sq M.predicted among non-blacks MDRD (S/P/Bld) [Vol rate/Area] 78 mL/min/{1.73_m2} Normal >60 [facility] Comment on above: Result Comment: mL/m in/1.73m2 CKD-EPI Creatinine Equation (2020) Performed By: #### L 500.2500, L503.7505 #### [facility] [address] [place], [address] Glucose [Mass/Vol] 79 mg/dL Normal 70-99 [facility] Comment on above: Performed By: #### L 500.2500, L503.7505 #### [facility] [address] [place], [address] Potassium [Moles/Vol] 4.9 mmol/L Normal 3.3-5.1 [facility] Comment on above: Result Comment: Hemo lysis present, Results??could be affected. ?? Performed By: #### L 500.2500, L503.7505 #### [facility] [address] [place], [address] Sodium [Moles/Vol] 140 mmol/L Normal 133-145 [facility] Comment on above: Performed By: #### L 500.2500, L503.7505 #### [facility] [address] [place], [address] Urea nitrogen [Mass/Vol] 17 mg/dL Normal 4-19 [facility] Comment on above: Performed By: #### L 500.2500, L503.7505 #### [facility] [address] [place], [address] Carbon dioxide, total [Moles /volume] in Central venous bloodOrdered By: Gretchen Nguyen on 03-07-2025 CO2 [Moles/Vol] 26.9 mmol/L 21.0-32.0 [facility] Chloride assayOrdered By: Oli Nguyen on 03-07-2025 Chloride [Moles/Vol] 103 mmol/L 98-108 [facility] Glomerular filtration rate ( GFR) estimation/1.73 sq m using serum, plasma, or whole bOrdered By: Gretchen Nguyen on 03-07-2025 GFR/1.73 sq M.predicted among non-blacks MDRD (S/P/Bld) [Vol rate/Area] 78 mL/min/{1.73_m2} >60 [facility] Comment on above: mL/min/1.73m2 CKD-EP I Creatinine Equation (2020) L503.7505on 03-07-2025 Natriuretic peptide B (Bld) [Mass/Vol] 3513 pg/mL High <=1800 [facility] Comment on above: Result Comment: Hear t Failure Unlikely: < 300 pg/mL Heart Failure Likely < 50 Years: > 450 pg/mL 50-75 Years: > 900 pg/mL >75 Years: > 1800 pg/mL Performed By: #### L 500.2500, L503.7505 #### [facility] [address] [place], [address] Natriuretic peptide.B prohor khloe N-Terminal [Mass/volume] in Serum or PlasmaOrdered By: Gretchen Nguyen on 03-07-2025 Natriuretic peptide.B prohormone N-Terminal [Mass/Vol] 3513 pg/mL High <1800 [facility] Comment on above: Heart Failure Unlike ly: < 300 pg/mLHeart Failure Likely< 50 Years: > 450 pg/mL50-75 Years: > 900 pg/mL>75 Years: > 1800 pg/mL Potassium measurement (mass/ volume)Ordered By: Gretchen Nguyen on 03-07-2025 Potassium (Unsp spec) [Mass/Vol] 4.9 mmol/L 3.3-5.1 [facility] Comment on above: Hemolysis present, R esults could be affected. Serum creatinine measurement (mass/volume)Ordered By: Gretchen Nguyen on 03-07-2025 Creatinine [Mass/Vol] 0.94 mg/dL 0.70-1.20 [facility] Serum glucose measurement (m ass/volume)Ordered By: Gretchen Nguyen on 03-07-2025 Glucose [Mass/Vol] 79 mg/dL 70-99 [facility] Serum or plasma calcium tay urement (mass/volume)Ordered By: Gretchen Nguyen on 03-07-2025 Calcium [Mass/Vol] 9.3 mg/dL 7.6-11.0 [facility] Serum or plasma urea nitroge n measurement (mass/volume)Ordered By: Gretchen Nguyen on 03-07-2025 Urea nitrogen [Mass/Vol] 17 mg/dL -19 [facility] Sodium levelOrdered By: Shagufta Nguyen on 03-07-2025 Sodium [Moles/Vol] 140 mmol/L 133-145 [facility] Cardiology Visit Reporton Cardiology Visit Report [facility] [address] [place] [address] OFFICE VISIT Date of Service: 02/19/25 MR#: [id number] Acct: [id number] Name: JESSEE RUST Rep #: [id number] : 1935 Provider: HUAN ramsay Age/Sex: 89/M Location: [facility] Status: Signed HPI HPI History of Present [...] evidence of ischemia. He was evaluated at [facility] in November 2023 for non-ST myocardial [...] Back in a-fib, see clinical notes L.L [employer] Assistant Required: No Is patient in pain?: No [...] #1 ea 04/30/23 02/19/25 Rx Nebulizer System) asjhtgxg-hki-iucek acid 0.4 1 tab PO DAILY supplement [...] hydrocortisone 2.5 % topical cream 1 applic [place] BID-QID PRN 01/04/24 02/19/25 Rx with perineal [...] 0.2 % (more content not included)... Normal [facility] Vitamin B12on 02-15-2025 Cobalamin (Vitamin B12) [Mass/Vol] 425 pg/mL Normal 180-914 [facility] Comment on above: Performed By: #### L 503.0106 #### [facility] [address] [address] [place], [address] Absolute lymphocyte countOrd ered By: Addi Mario on 02-14-2025 Lymphocytes Auto (Unsp spec) [#/Vol] 2.30 10*3/uL 0.83-4.51 [facility] Absolute neutrophil countOrd ered By: Addi Mario on 02-14-2025 Neutrophils (Bld) [#/Vol] 4.7 10*3/uL 2.0-7.7 [facility] [facility] Anion gap in Serum or Plasma Ordered By: Addi Mario on 02-14-2025 Anion gap [Moles/Vol] 10 mmol/L 5- [facility] Automated lymphocyte count a s percentage of total leukocytesOrdered By: Addi Mario on 02-14-2025 Lymphocytes/100 WBC Auto (Unsp spec) 28.6 % 19- [facility] BUN/creatinine ratioOrdered By: zackeryhardylilli Gecarissamaria del carmen on 02-14-2025 Urea nitrogen/Creatinine [Mass ratio] 23.1 mg/mg High 10-20 [facility] Basophil percentageOrdered B y: Aleahjosh Mario on 02-14-2025 Basophils/100 WBC (Bld) 0.5 % 0-1 [facility] Bilirubin, totalOrdered By: josh Mario on 02-14-2025 Bilirubin [Mass/Vol] 0.37 mg/dL 0.00-1.30 [facility] CBC W/Diff, Automatedon 01-18 Absolute Lymph 2.30 X10 3/uL Normal 0.83-4.51 [facility] Comment on above: Performed By: #### L 506.0400, L500.4050, L100.0100, L501.5200, L501.9520 ####[facility] [address] [place], [address] Absolute Neut 4.7 X10 3/uL Normal 2.0-7.7 [facility] Comment on above: Performed By: #### L 506.0400, L500.4050, L100.0100, L501.5200, L501.9520 ####[facility] [address] [place], [address] Basophils/100 WBC (Bld) 0.5 % Normal 0-1 [facility] Comment on above: Performed By: #### L 506.0400, L500.4050, L100.0100, L501.5200, L501.9520 ####[facility] [address] [place], [address] Eosinophils/100 WBC (Bld) 2.6 % Normal 0-5 [facility] Comment on above: Performed By: #### L 506.0400, L500.4050, L100.0100, L501.5200, L501.9520 ####[facility] [address] [place], [address] Erythrocyte distribution width (RBC) [Ratio] 15.4 % High 11.6-14.6 [facility] Comment on above: Performed By: #### L 506.0400, L500.4050, L100.0100, L501.5200, L501.9520 ####[facility] [address] [place], [address] Hematocrit (Bld) [Volume fraction] 37.3 % Low 40-54 [facility] Comment on above: Performed By: #### L 506.0400, L500.4050, L100.0100, L501.5200, L501.9520 ####[facility] [address] [place], [address] Hemoglobin (Bld) [Mass/Vol] 12.0 g/dL Low 13.0-16.5 [facility] Comment on above: Performed By: #### L 506.0400, L500.4050, L100.0100, L501.5200, L501.9520 ####[facility] [address] [place], [address] IG% 0.100 Normal 0.0-0.9 [facility] Comment on above: Result Comment: IG% - Immature Granulocytes (promyelocytes, myelocytes and metamyelocytes) > 1% indicates that a LEFT SHIFT is Present. Performed By: #### L 506.0400, L500.4050, L100.0100, L501.5200, L501.9520 ####[facility] [address] [place], [address] Lymphocytes/100 WBC (Bld) 28.6 % Normal 19-41 [facility] Comment on above: Performed By: #### L 506.0400, L500.4050, L100.0100, L501.5200, L501.9520 ####[facility] [address] [place], [address] MCH (RBC) [Entitic mass] 31.4 pg Normal 27.0-32.0 [facility] Comment on above: Performed By: #### L 506.0400, L500.4050, L100.0100, L501.5200, L501.9520 ####[facility] [address] [place], [address] MCHC (RBC) [Mass/Vol] 32.2 g/dL Normal 32-36 [facility] Comment on above: Performed By: #### L 506.0400, L500.4050, L100.0100, L501.5200, L501.9520 ####[facility] [address] [place], [address] MCV (RBC) [Entitic vol] 97.6 fL High 80-94 [facility] Comment on above: Performed By: #### L 506.0400, L500.4050, L100.0100, L501.5200, L501.9520 ####[facility] [address] [place], [address] Monocytes/100 WBC (Bld) 9.7 % Normal 0-10 [facility] Comment on above: Performed By: #### L 506.0400, L500.4050, L100.0100, L501.5200, L501.9520 ####[facility] [address] [place], [address] Neutrophils/100 WBC (Bld) 58.5 % Normal 47-70 [facility] Comment on above: Performed By: #### L 506.0400, L500.4050, L100.0100, L501.5200, L501.9520 ####[facility] [address] [place], [address] Nucleated RBC (Bld) [#/Vol] 0 10*3/uL Normal 0-5 [facility] Comment on above: Performed By: #### L 506.0400, L500.4050, L100.0100, L501.5200, L501.9520 ####[facility] [address] [place], [address] Platelet mean volume (Bld) [Entitic vol] 11.5 fL Normal 6.2-12.0 [facility] Comment on above: Performed By: #### L 506.0400, L500.4050, L100.0100, L501.5200, L501.9520 ####[facility] [address] [place], [address] Platelets (Bld) [#/Vol] 153 10*3/uL Normal 150-450 [facility] Comment on above: Performed By: #### L 506.0400, L500.4050, L100.0100, L501.5200, L501.9520 ####[facility] [address] [place], [address] RBC (Bld) [#/Vol] 3.82 10*6/uL Low 4.6-6.2 [facility] Comment on above: Performed By: #### L 506.0400, L500.4050, L100.0100, L501.5200, L501.9520 ####[facility] [address] [place], [address] RDW SD 54.5 fl High 35.1-43.9 [facility] Comment on above: Performed By: #### L 506.0400, L500.4050, L100.0100, L501.5200, L501.9520 ####[facility] [address] [place], [address] WBC (Bld) [#/Vol] 8.0 10*3/uL Normal 4.4-11.0 [facility] Comment on above: Performed By: #### L 506.0400, L500.4050, L100.0100, L501.5200, L501.9520 ####[facility] [address] [place], [address] Carbon dioxide, total [Moles /volume] in Central venous bloodOrdered By: Addi Mario on 02-14-2025 CO2 [Moles/Vol] 27.8 mmol/L 21.0-32.0 [facility] Chloride assayOrdered By: Aleah Mario on 02-14-2025 Chloride [Moles/Vol] 101 mmol/L 98-108 [facility] Comprehensive Metabolic Prof ilon 02-14-2025 Albumin [Mass/Vol] 3.9 g/dL Normal 3.4-4.8 [facility] Comment on above: Performed By: #### L 506.0400, L500.4050, L100.0100, L501.5200, L501.9520 ####[facility] [address] [place], [address] Albumin/Globulin [Mass ratio] 1.0 {ratio} Normal 0.9-2.4 [facility] Comment on above: Performed By: #### L 506.0400, L500.4050, L100.0100, L501.5200, L501.9520 ####[facility] [address] [place], [address] ALK PHOS 88 U/L Normal 40-129 [facility] Comment on above: Performed By: #### L 506.0400, L500.4050, L100.0100, L501.5200, L501.9520 ####[facility] [address] [place], [address] ALT [Catalytic activity/Vol] 17 U/L Normal <=46 [facility] Comment on above: Performed By: #### L 506.0400, L500.4050, L100.0100, L501.5200, L501.9520 ####[facility] [address] [place], [address] AST [Catalytic activity/Vol] 28 U/L Normal <=37 [facility] Comment on above: Performed By: #### L 506.0400, L500.4050, L100.0100, L501.5200, L501.9520 ####[facility] [address] [place], [address] Bilirubin [Mass/Vol] 0.37 mg/dL Normal 0.00-1.30 [facility] Comment on above: Performed By: #### L 506.0400, L500.4050, L100.0100, L501.5200, L501.9520 ####[facility] [address] [place], [address] BUN/CRE 23.1 RATIO High 10-20 [facility] Comment on above: Performed By: #### L 506.0400, L500.4050, L100.0100, L501.5200, L501.9520 ####[facility] [address] [place], [address] Calcium [Mass/Vol] 9.8 mg/dL Normal 7.6-11.0 [facility] Comment on above: Performed By: #### L 506.0400, L500.4050, L100.0100, L501.5200, L501.9520 ####[facility] [address] [place], [address] Chloride [Moles/Vol] 101 mmol/L Normal 98-108 [facility] Comment on above: Performed By: #### L 506.0400, L500.4050, L100.0100, L501.5200, L501.9520 ####[facility] [address] [place], [address] CO2 [Moles/Vol] 27.8 mmol/L Normal 21.0-32.0 [facility] Comment on above: Performed By: #### L 506.0400, L500.4050, L100.0100, L501.5200, L501.9520 ####[facility] [address] [place], [address] Creatinine [Mass/Vol] 0.93 mg/dL Normal 0.70-1.20 [facility] Comment on above: Performed By: #### L 506.0400, L500.4050, L100.0100, L501.5200, L501.9520 ####[facility] [address] [place], [address] GAP 10 Normal 5-15 [facility] Comment on above: Performed By: #### L 506.0400, L500.4050, L100.0100, L501.5200, L501.9520 ####[facility] [address] [place], [address] GFR/1.73 sq M.predicted among non-blacks MDRD (S/P/Bld) [Vol rate/Area] 80 mL/min/{1.73_m2} Normal >60 [facility] Comment on above: Result Comment: mL/m in/1.73m2 CKD-EPI Creatinine Equation (2020) Performed By: #### L 506.0400, L500.4050, L100.0100, L501.5200, L501.9520 ####[facility] [address] [place], [address] Globulin (S) [Mass/Vol] 4.0 g/dL Normal 2.2-4.2 [facility] Comment on above: Performed By: #### L 506.0400, L500.4050, L100.0100, L501.5200, L501.9520 ####[facility] [address] [place], [address] Glucose [Mass/Vol] 94 mg/dL Normal 70-99 [facility] Comment on above: Performed By: #### L 506.0400, L500.4050, L100.0100, L501.5200, L501.9520 ####[facility] [address] [place], [address] Potassium [Moles/Vol] 4.0 mmol/L Normal 3.3-5.1 [facility] Comment on above: Performed By: #### L 506.0400, L500.4050, L100.0100, L501.5200, L501.9520 ####[facility] [address] [place], [address] Sodium [Moles/Vol] 138 mmol/L Normal 133-145 [facility] Comment on above: Performed By: #### L 506.0400, L500.4050, L100.0100, L501.5200, L501.9520 ####[facility] [address] [place], [address] T PROT 7.8 g/dL Normal 5.9-8.4 [facility] Comment on above: Performed By: #### L 506.0400, L500.4050, L100.0100, L501.5200, L501.9520 ####[facility] [address] [place], [address] Urea nitrogen [Mass/Vol] 21 mg/dL High 4-19 [facility] Comment on above: Performed By: #### L 506.0400, L500.4050, L100.0100, L501.5200, L501.9520 ####[facility] [address] [place], [address] Eosinophil percentageOrdered By: Addi Mario on 02-14-2025 Eosinophils/100 WBC (Bld) 2.6 % 0-5 [facility] Erythrocyte distribution wid th ratioOrdered By: zackeryhardylilli Mario on 02-14-2025 Erythrocyte distribution width (RBC) [Ratio] 15.4 % High 11.6-14.6 [facility] Erythrocyte distribution wid th standard deviationOrdered By: [facility] Spaldinglilli Mario on 02-14-2025 Erythrocyte distribution width (RBC) [Ratio] 54.5 fl High 35.1-43.9 [facility] Glomerular filtration rate ( GFR) estimation/1.73 sq m using serum, plasma, or whole bOrdered By: [facility] Spaldinglilli Mario on 02-14-2025 GFR/1.73 sq M.predicted among non-blacks MDRD (S/P/Bld) [Vol rate/Area] 80 mL/min/{1.73_m2} >60 [facility] Comment on above: mL/min/1.73m2 CKD-EP I Creatinine Equation (2020) Hematocrit Auto (Bld) [Volum e fraction]Ordered By: Addi Mario on 02-14-2025 Hematocrit (Bld) [Volume fraction] 37.3 % Low 40-54 [facility] Hemoglobin measurementOrdere d By: Addi Mario on 02-14-2025 Hemoglobin (Bld) [Mass/Vol] 12.0 g/dL Low 13.0-16.5 [facility] Immature granulocytes/100 WB C Auto (Bld)Ordered By: josh Mario on 02-14-2025 Immature granulocytes/100 WBC (Bld) 0.100 % 0.0-0.9 [facility] Comment on above: IG% - Immature Granu locytes (promyelocytes, myelocytes and metamyelocytes) > 1% indicates that a LEFT SHIFT is Present. Internal Medicine Office Vis gayla 02-14-2025 Internal Medicine Office Visit [facility] [address] [place] [address] [place] [address] OFFICE VISIT Date of Service: 02/14/25 MR#: [id number] Acct: [id number] Name: JESSEE RUST Rep #: [id number] : 1935 Provider: Dr. Addi alvarado MD Age/Sex: 89/M Location: [facility] Status: Signed Intake Vital Signs 11/15/24 15:09 [...] M FU Chief Complaint: Follow-up chronic conditions [employer] Assistant Required: No Is patient in pain?: No [...] #1 ea 04/30/23 02/14/25 Rx Nebulizer System) iwgrlprp-jka-grphb acid 0.4 1 tab PO DAILY supplement [...] hydrocortisone 2.5 % topical cream 1 applic [place] BID-QID PRN 01/04/24 02/14/25 Rx with perineal [...] the past year?: No PFSH Medical History Immunity status testing Sore throat [...] Physical debility (more content not included)... Normal [facility] Laboratory - Chemistry and C hemistry - challengeOrdered By: Addi Mario on 02-14-2025 AST [Catalytic activity/Vol] 28 U/L <38 [facility] MCV (mean corpuscular volume ) determinationOrdered By: Addi Mario on 02-14-2025 MCV (RBC) [Entitic vol] 97.6 fL High 80-94 [facility] Magnesiumon 02-14-2025 Magnesium [Mass/Vol] 2.1 mg/dL Normal 1.5-2.2 [facility] Comment on above: Performed By: #### L 506.0400, L500.4050, L100.0100, L501.5200, L501.9520 ####[facility] [address] [place], [address] Magnesium measurement (mass/ volume)Ordered By: Addi Mario on 02-14-2025 Magnesium (Unsp spec) [Mass/Vol] 2.1 mg/dL 1.5-2.2 [facility] Mean corpuscular hemoglobin (MCH) determinationOrdered By: Addi Mario on 02-14-2025 MCH (RBC) [Entitic mass] 31.4 pg 27.0-32.0 [facility] Mean corpuscular hemoglobin concentration (MCHC) determinationOrdered By: Addi Mario on 02-14-2025 MCHC (RBC) [Mass/Vol] 32.2 g/dL 32-36 [facility] Mean platelet volume determi nationOrdered By: Addi Mario on 02-14-2025 Platelet mean volume (Bld) [Entitic vol] 11.5 fL 6.2-12.0 [facility] Monocyte percentageOrdered B y: Addi Mario on 02-14-2025 Monocytes/100 WBC (Bld) 9.7 % 0-10 [facility] Neutrophil percentageOrdered By: [facility] Mario on 02-14-2025 Neutrophils/100 WBC (Bld) 58.5 % 47-70 [facility] Nucleated red blood cell per centageOrdered By: Addi Mario on 02-14-2025 Nucleated RBC/100 WBC (Bld) [Ratio] 0 % 0-5 [facility] Platelet countOrdered By: Aleah billylilli Mario on 02-14-2025 Platelets (Bld) [#/Vol] 153 10*3/uL 150-450 [facility] Potassium measurement (mass/ volume)Ordered By: Addi Mario on 02-14-2025 Potassium (Unsp spec) [Mass/Vol] 4.0 mmol/L 3.3-5.1 [facility] RBC Auto (Bld) [#/Vol]Ordere d By: Addi Mario on 02-14-2025 RBC (Bld) [#/Vol] 3.82 10*6/uL Low 4.6-6.2 [facility] Serum creatinine measurement (mass/volume)Ordered By: Addi Mario on 02-14-2025 Creatinine [Mass/Vol] 0.93 mg/dL 0.70-1.20 [facility] Serum globulin measurementOr dered By: Addi Mario on 02-14-2025 Globulin (S) [Mass/Vol] 4.0 g/dL 2.2-4.2 [facility] Serum glucose measurement (m ass/volume)Ordered By: Addi Mario on 02-14-2025 Glucose [Mass/Vol] 94 mg/dL 70-99 [facility] Serum or plasma alanine castellano otransferase (ALT) measurementOrdered By: Addi Mario on 02-14-2025 ALT [Catalytic activity/Vol] 17 U/L <47 [facility] Serum or plasma albumin tay urement (mass/volume)Ordered By: Addi Mario on 02-14-2025 Albumin [Mass/Vol] 3.9 g/dL 3.4-4.8 [facility] Serum or plasma albumin/glob ulin mass ratioOrdered By: Addi Mario on 02-14-2025 Albumin/Globulin [Mass ratio] 1.0 {ratio} 0.9-2.4 [facility] Serum or plasma alkaline lyndsey sphatase measurementOrdered By: Addi Mario on 02-14-2025 ALP [Catalytic activity/Vol] 88 U/L 40-129 [facility] Serum or plasma calcium tay urement (mass/volume)Ordered By: Addi Mario on 02-14-2025 Calcium [Mass/Vol] 9.8 mg/dL 7.6-11.0 [facility] Serum or plasma urea nitroge n measurement (mass/volume)Ordered By: Addi Mario on 02-14-2025 Urea nitrogen [Mass/Vol] 21 mg/dL High 4-19 [facility] Sodium levelOrdered By: Arleth Mario on 02-14-2025 Sodium [Moles/Vol] 138 mmol/L 133-145 [facility] T4 Free Directon 02-14-2025 T4 FREE DIRECT 1.10 ng/dL Normal 0.76-1.46 [facility] Comment on above: Performed By: #### L 506.0400, L500.4050, L100.0100, L501.5200, L501.9520 ####[facility] [address] [place], [address] T4 freeOrdered By: Aleahzackeryjimlilli Mario on 02-14-2025 Free T4 [Mass/Vol] 1.10 ng/dL 0.76-1.46 [facility] TSH DL <= 0.005 mIU/L QnOrde red By: Addi Mario on 02-14-2025 TSH Qn 2.190 uIU/mL 0.300-4.200 [facility] Thyroid Stim Hormone (TSH)on 02-14-2025 TSH 2.190 uIU/mL Normal 0.300-4.200 [facility] Comment on above: Performed By: #### L 506.0400, L500.4050, L100.0100, L501.5200, L501.9520 ####[facility] [address] [place], [place], [id number] Total proteinOrdered By: Sonny spence Joocarissamaria del carmen on 02-14-2025 Protein [Mass/Vol] 7.8 g/dL 5.9-8.4 [facility] Vitamin B12 ser/plasOrdered By: Aleahzackeryjimlilli Gecarissamaria del carmen on 02-14-2025 Cobalamin (Vitamin B12) [Mass/Vol] 425 pg/mL 180-914 [facility] White blood cell (WBC) count Ordered By: Aleahzackeryjimlilli Gecarissamaria del carmen on 02-14-2025 WBC (Bld) [#/Vol] 8.0 10*3/uL 4.4-11.0 [facility] Modified Barium Swallow Stud yon 01-02-2025 Modified Barium Swallow Study [facility] Speech Pathology [address] [place] [address] Modified Barium Swallow Study MR#: [id number] Acct: [id number] Name: AZRADudleyJESSEE KATI Rep #: [id number] : 1935 89 From: Jodee Miller M.A., [facility] COORDINATOR Modified Barium Swallow Patient Information Study Date: [...] cup: Result: 1= does not enter airway Wilbur Thick Liquid via large single sip: cup: [...] below phary (more content not included)... Normal [facility] Rubeola IgG Abon 12-29-2024 RUBEOLA Ab, IgG > 300.0 Normal Immune >16.4 [facility] Comment on above: Result Comment: Nega tive <13.5 Equivocal 13.5 - 16.4 Positive >16.4 Presence of antibodies to Rubeola is presumptive evidence of immunity except when acute infection is suspected. Performed at: [facility] [address] [place], [place] [id number] Tobacco Drummer: Herber Lindquist PhD, Phone: [phone] Performed By: #### L 3100.3300, L503.0106 ####[facility] [address] [place], [place], [id number] MeV IgG IA Qn (S)Ordered By: Addi Mario on 12-27-2024 Rubeola (Measles) IgG Antibody > 300.0 AU/mL Immune >16.4 [facility] Comment on above: Negative <13.5 Equiv ocal 13.5 - 16.4 Positive >16.4Presence of antibodies to Rubeola is presumptive evidenceof immunity except when acute infection is suspected.Performed at: [place] [id number] [place], [place] [id number] Director: Herber Lindquist PhD, Phone: [phone] Serum measles virus IgG anti body assay by immunoassay (units/volume)Ordered By: Addi Mario on 12-27-2024 MeV IgG IA Qn (S) > 300.0 AU/mL Immune >16.4 [facility] Comment on above: Negative <13.5 Equiv ocal 13.5 - 16.4 Positive >16.4Presence of antibodies to Rubeola is presumptive evidenceof immunity except when acute infection is suspected.Performed at: [address] [id number] Director: Herber Lindquist PhD, Phone: [phone] Vitamin B12on 12-27-2024 Cobalamin (Vitamin B12) [Mass/Vol] 512 pg/mL Normal 180-914 [facility] Comment on above: Performed By: #### L 3100.3300, L503.0106 ####[facility] [address] [place], [address] Vitamin B12 ser/plasOrdered By: Addi Mario on 12-27-2024 Cobalamin (Vitamin B12) [Mass/Vol] 512 pg/mL 180-914 [facility] Pulmonary Visit Reporton Pulmonary Visit Report [facility] [address] [place] [address] OFFICE VISIT Date of Service: 12/14/24 MR#: [id number] Acct: [id number] Name: JESSEE RUST Rep #: [id number] : 1935 Provider: HUAN Sharma Age/Sex: 89/M Location: [facility] Status: Signed Assessment and Plan Assessment and [...] air Intake Visit Reasons: 6 M FU [employer] Assistant Required: No Accompanied by: Self Allergies metoprolol [...] #1 ea 04/30/23 11/15/24 Rx Nebulizer System) sramjrvx-ibq-mtvpu acid 0.4 1 tab PO DAILY supplement [...] hydrocortisone 2.5 % topical cream 1 applic [place] BID-QID PRN 01/04/24 12/14/24 Rx with perineal applicator hemorrhoids #30 grams cetirizine 10 mg tablet 10 mg PO DAILY PRN (more content not included)... Normal [facility] No Panel InformationOrdered By: Addi Mario on 11-30-2024 POC SARS CoV-2 Antigen Positive [facility] Office Visit Reporton 2024 Office Visit Report [facility] [address] [place] [address] OFFICE VISIT Date of Service: 11/30/24 MR#: [id number] Acct: [id number] Patient: JESSEE RUST Rep #: [id number] : 1935 Provider: VANNESSA NURSE Age/Sex: 89/M Location: [facility] Status: Signed Intake Vital Signs 11/15/24 15:09 [...] Addi Denise Signature: Date (if applicable) CC: [facility] 11-27-2024 [facility] Telephone (OPHTMN) ---- JESSEE RUST ([id number]) 1935 M Date Time Provider Department [facility] today, we recorded the [...] OVERWEIGHT [E66.9] (more content not included)... Normal [facility] OCT OPTIC NERVE CIRRUS OU (B OTH EYES)on 11-26-2024 [facility] Radiology Study observation (narrative) [facility] Absolute lymphocyte countOrd ered By: Addi Mario on 11-15-2024 Lymphocytes Auto (Unsp spec) [#/Vol] 2.07 10*3/uL 0.83-4.51 [facility] Absolute neutrophil countOrd ered By: Addi Mario on 11-15-2024 Neutrophils (Bld) [#/Vol] 4.5 10*3/uL 2.0-7.7 [facility] Automated lymphocyte count a s percentage of total leukocytesOrdered By: Addi Mario on 11-15-2024 Lymphocytes/100 WBC Auto (Unsp spec) 27.1 % 19-41 [facility] BUN/creatinine ratioOrdered By: Addi Mario on 11-15-2024 Urea nitrogen/Creatinine [Mass ratio] 19.3 mg/mg 10-20 [facility] Basic Metabolic Profile (BMP )on 11-15-2024 Anion gap [Moles/Vol] 8 mmol/L Normal 5-15 [facility] Comment on above: Performed By: #### L 503.6550, L503.6150, L500.4100, L503.6075, L100.0100, L500.2500 ####[facility] [address] [place], [address] BUN/CRE 19.3 RATIO Normal 10-20 [facility] Comment on above: Performed By: #### L 503.6550, L503.6150, L500.4100, L503.6075, L100.0100, L500.2500 ####[facility] [address] [place], [address] Calcium [Mass/Vol] 9.6 mg/dL Normal 7.6-11.0 [facility] Comment on above: Performed By: #### L 503.6550, L503.6150, L500.4100, L503.6075, L100.0100, L500.2500 ####[facility] [address] [place], [address] Chloride [Moles/Vol] 102 mmol/L Normal 96-108 [facility] Comment on above: Performed By: #### L 503.6550, L503.6150, L500.4100, L503.6075, L100.0100, L500.2500 ####[facility] [address] [place], [address] CO2 [Moles/Vol] 28.4 mmol/L Normal 22.0-29.0 [facility] Comment on above: Performed By: #### L 503.6550, L503.6150, L500.4100, L503.6075, L100.0100, L500.2500 ####[facility] [address] [place], [address] Creatinine [Mass/Vol] 0.86 mg/dL Normal 0.70-1.20 [facility] Comment on above: Performed By: #### L 503.6550, L503.6150, L500.4100, L503.6075, L100.0100, L500.2500 ####[facility] [address] [place], [address] GFR/1.73 sq M.predicted among non-blacks MDRD (S/P/Bld) [Vol rate/Area] 84 mL/min/{1.73_m2} Normal >60 [facility] Comment on above: Result Comment: mL/m in/1.73m2 CKD-EPI Creatinine Equation (2020) Performed By: #### L 503.6550, L503.6150, L500.4100, L503.6075, L100.0100, L500.2500 ####[facility] [address] [place], [address] Glucose [Mass/Vol] 87 mg/dL Normal 70-99 [facility] Comment on above: Performed By: #### L 503.6550, L503.6150, L500.4100, L503.6075, L100.0100, L500.2500 ####[facility] [address] [place], [address] Potassium [Moles/Vol] 4.4 mmol/L Normal 3.3-5.1 [facility] Comment on above: Performed By: #### L 503.6550, L503.6150, L500.4100, L503.6075, L100.0100, L500.2500 ####[facility] [address] [place], [address] Sodium [Moles/Vol] 139 mmol/L Normal 133-145 [facility] Comment on above: Performed By: #### L 503.6550, L503.6150, L500.4100, L503.6075, L100.0100, L500.2500 ####[facility] [address] [place], [address] Urea nitrogen [Mass/Vol] 17 mg/dL Normal 4-19 [facility] Comment on above: Performed By: #### L 503.6550, L503.6150, L500.4100, L503.6075, L100.0100, L500.2500 ####[facility] [address] [place], [address] Basophil percentageOrdered B y: Addi Mario on 11-15-2024 Basophils/100 WBC (Bld) 0.5 % 0-1 [facility] CBC W/Diff, Automatedon 10-21 Absolute Lymph 2.07 X10 3/uL Normal 0.83-4.51 [facility] Comment on above: Performed By: #### L 503.6550, L503.6150, L500.4100, L503.6075, L100.0100, L500.2500 #### [facility] [address] [place], [address] Absolute Neut 4.5 X10 3/uL Normal 2.0-7.7 [facility] Comment on above: Performed By: #### L 503.6550, L503.6150, L500.4100, L503.6075, L100.0100, L500.2500 #### [facility] [address] [place], [address] Basophils/100 WBC (Bld) 0.5 % Normal 0-1 [facility] Comment on above: Performed By: #### L 503.6550, L503.6150, L500.4100, L503.6075, L100.0100, L500.2500 #### [facility] [address] [place], [address] Eosinophils/100 WBC (Bld) 2.2 % Normal 0-5 [facility] Comment on above: Performed By: #### L 503.6550, L503.6150, L500.4100, L503.6075, L100.0100, L500.2500 #### [facility] [address] [place], [address] Erythrocyte distribution width (RBC) [Ratio] 14.4 % Normal 11.6-14.6 [facility] Comment on above: Performed By: #### L 503.6550, L503.6150, L500.4100, L503.6075, L100.0100, L500.2500 #### [facility] [address] [place], [address] Hematocrit (Bld) [Volume fraction] 38.2 % Low 40-54 [facility] Comment on above: Performed By: #### L 503.6550, L503.6150, L500.4100, L503.6075, L100.0100, L500.2500 #### [facility] [address] [facility] [place], [address] Hemoglobin (Bld) [Mass/Vol] 12.1 g/dL Low 13.0-16.5 [facility] Comment on above: Performed By: #### L 503.6550, L503.6150, L500.4100, L503.6075, L100.0100, L500.2500 #### [facility] [address] [place], [address] IG% 0.400 Normal 0.0-0.9 [facility] Comment on above: Result Comment: IG% - Immature Granulocytes (promyelocytes, myelocytes and metamyelocytes) > 1% indicates that a LEFT SHIFT is Present. Performed By: #### L 503.6550, L503.6150, L500.4100, L503.6075, L100.0100, L500.2500 #### [facility] [address] [place], [address] Lymphocytes/100 WBC (Bld) 27.1 % Normal 19-41 [facility] Comment on above: Performed By: #### L 503.6550, L503.6150, L500.4100, L503.6075, L100.0100, L500.2500 #### [facility] [address] [place], [address] MCH (RBC) [Entitic mass] 31.5 pg Normal 27.0-32.0 [facility] Comment on above: Performed By: #### L 503.6550, L503.6150, L500.4100, L503.6075, L100.0100, L500.2500 #### [facility] [address] [place], [address] MCHC (RBC) [Mass/Vol] 31.7 g/dL Low 32-36 [facility] Comment on above: Performed By: #### L 503.6550, L503.6150, L500.4100, L503.6075, L100.0100, L500.2500 #### [facility] [address] [place], [address] MCV (RBC) [Entitic vol] 99.5 fL High 80-94 [facility] Comment on above: Performed By: #### L 503.6550, L503.6150, L500.4100, L503.6075, L100.0100, L500.2500 #### [facility] [address] [place], [address] Monocytes/100 WBC (Bld) 11.1 % High 0-10 [facility] Comment on above: Performed By: #### L 503.6550, L503.6150, L500.4100, L503.6075, L100.0100, L500.2500 #### [facility] [address] [place], [address] Neutrophils/100 WBC (Bld) 58.7 % Normal 47-70 [facility] Comment on above: Performed By: #### L 503.6550, L503.6150, L500.4100, L503.6075, L100.0100, L500.2500 #### [facility] [address] [place], [address] Nucleated RBC (Bld) [#/Vol] 0 10*3/uL Normal 0-5 [facility] Comment on above: Performed By: #### L 503.6550, L503.6150, L500.4100, L503.6075, L100.0100, L500.2500 #### [facility] [address] [place], [address] Platelet mean volume (Bld) [Entitic vol] 11.3 fL Normal 6.2-12.0 [facility] Comment on above: Performed By: #### L 503.6550, L503.6150, L500.4100, L503.6075, L100.0100, L500.2500 #### [facility] [address] [place], [address] Platelets (Bld) [#/Vol] 142 10*3/uL Low 150-450 [facility] Comment on above: Performed By: #### L 503.6550, L503.6150, L500.4100, L503.6075, L100.0100, L500.2500 #### [facility] [address] [place], [address] RBC (Bld) [#/Vol] 3.84 10*6/uL Low 4.6-6.2 [facility] Comment on above: Performed By: #### L 503.6550, L503.6150, L500.4100, L503.6075, L100.0100, L500.2500 #### [facility] [address] [place], [address] RDW SD 52.8 fl High 35.1-43.9 [facility] Comment on above: Performed By: #### L 503.6550, L503.6150, L500.4100, L503.6075, L100.0100, L500.2500 #### [facility] [address] [place], [address] WBC (Bld) [#/Vol] 7.6 10*3/uL Normal 4.4-11.0 [facility] Comment on above: Performed By: #### L 503.6550, L503.6150, L500.4100, L503.6075, L100.0100, L500.2500 #### [facility] [address] [place], [address] Calculated total iron bindin g capacityOrdered By: Addi Mario on 11-15-2024 Total Iron Binding Capacity 289 ug/dL 250-450 [facility] Calculated very low density lipoprotein (VLDL) cholesterol measurementOrdered By: Addi Mario on 11-15-2024 Calculated very low density lipoprotein (VLDL) cholesterol measurement 18 mg/dL 5-40 [facility] VLDL Cholesterol 18 mg/dL 5-40 [facility] Carbon dioxide measurementOr dered By: Addi Mario on 11-15-2024 CO2 [Moles/Vol] 28.4 mmol/L 22.0-29.0 [facility] Chloride measurementOrdered By: Addi Mario on 11-15-2024 Chloride [Moles/Vol] 102 mmol/L 96-108 [facility] Eosinophil percentageOrdered By: Addi Mario on 11-15-2024 Eosinophils/100 WBC (Bld) 2.2 % 0-5 [facility] Erythrocyte distribution wid th ratioOrdered By: Addi Mario on 11-15-2024 Erythrocyte distribution width (RBC) [Ratio] 14.4 % 11.6-14.6 [facility] Erythrocyte distribution wid th standard deviationOrdered By: Addi Mario on 11-15-2024 Erythrocyte distribution width (RBC) [Entitic vol] 52.8 fL High 35.1-43.9 [facility] Erythrocyte distribution width (RBC) [Ratio] 52.8 fl High 35.1-43.9 [facility] Ferritinon 11-15-2024 Ferritin [Mass/Vol] 71 ng/mL Normal 37-417 [facility] Comment on above: Performed By: #### L 503.6550, L503.6150, L500.4100, L503.6075, L100.0100, L500.2500 ####[facility] [address] [place], [address] GFR/1.73 sq M.predicted radha g non-blacks MDRD (S/P/Bld) [Vol rate/Area]Ordered By: Addi Mario on 11-15-2024 Estimated GFR (MDRD) Non-Af Amer 84 >60 [facility] Comment on above: mL/min/1.73m2 CKD-EP I Creatinine Equation (2020) Glomerular filtration rate ( GFR) estimation/1.73 sq m using serum, plasma, or whole bOrdered By: Addi Mario on 11-15-2024 GFR/1.73 sq M.predicted among non-blacks MDRD (S/P/Bld) [Vol rate/Area] 84 mL/min/{1.73_m2} >60 [facility] Comment on above: mL/min/1.73m2 CKD-EP I Creatinine Equation (2020) Hematocrit Auto (Bld) [Volum e fraction]Ordered By: Addi Mario on 11-15-2024 Hematocrit (Bld) [Volume fraction] 38.2 % Low 40-54 [facility] Hemoglobin measurementOrdere d By: Addi Mario on 11-15-2024 Hemoglobin (Bld) [Mass/Vol] 12.1 g/dL Low 13.0-16.5 [facility] Immature granulocytes/100 WB C Auto (Bld)Ordered By: Addi Mario on 11-15-2024 Immature granulocytes/100 WBC (Bld) 0.400 % 0.0-0.9 [facility] Comment on above: IG% - Immature Granu locytes (promyelocytes, myelocytes and metamyelocytes) > 1% indicates that a LEFT SHIFT is Present. Internal Medicine Office Vis gayla 11-15-2024 Internal Medicine Office Visit [facility] [address] [place] [address] [place] [address] OFFICE VISIT Date of Service: 11/15/24 MR#: [id number] Acct: [id number] Name: JESSEE RUST Rep #: [id number] : 1935 Provider: Dr. Addi alvarado MD Age/Sex: 89/M Location: [facility] Status: Signed Intake Vital Signs 08/15/24 14:31 [...] DAILY Eye 1 10/15/22 11/15/24 History drops hlvonguz-aua-lomdr acid 0.4 1 tab PO DAILY supplement [...] hydrocortisone 2.5 % topical cream 1 applic [place] BID-QID PRN 01/04/24 11/15/24 Rx with perineal [...] pt has c/o of issues with swallowing. [facility] Medical History (Updated 11/15/24 @ 15:32 by [...] Bradycardia Nonrheumati (more content not included)... Normal [facility] Ironon 11-15-2024 Iron [Mass/Vol] 50 ug/dL Low 65-175 [facility] Comment on above: Performed By: #### L 503.6550, L503.6150, L500.4100, L503.6075, L100.0100, L500.2500 ####[facility] [address] [place], [place], [address] Iron (Unsp spec) [Mass/Mass] Ordered By: Addi Mario on 11-15-2024 Iron [Mass/Vol] 50 ug/dL Low 65-175 [facility] Iron Binding Capacity,Totalo n 11-15-2024 TIBC 289 ug/dL Normal 250-450 [facility] Comment on above: Performed By: #### L 503.6550, L503.6150, L500.4100, L503.6075, L100.0100, L500.2500 ####[facility] [address] [place], [address] Iron measurement (mass/mass) Ordered By: Addi Mario on 11-15-2024 Iron (Unsp spec) [Mass/Mass] 50 ug/dL Low 65-175 [facility] LDL calc ser/plasOrdered By: Addi Mario on 11-15-2024 Cholesterol in LDL [Mass/Vol] 55 mg/dL [facility] Comment on above: Hrxwklsnym=200-307 m g/dL & Higher Ihqj=321 mg/dL or greater LDL Cholesterol, Calculated 55 mg/dL [facility] Comment on above: Uhydltnpdt=540-223 m g/dL & Higher Vrre=256 mg/dL or greater Lipid Profileon 11-15-2024 CHOL:HDL 2.40 Normal [facility] Comment on above: Performed By: #### L 503.6550, L503.6150, L500.4100, L503.6075, L100.0100, L500.2500 ####[facility] [address] [place], [address] Cholesterol [Mass/Vol] 126 mg/dL Normal <=200 [facility] Comment on above: Result Comment: Chol esterol level, Desirable <200 mg/dL Borderline high cholesterol 200-239 mg/dL High cholesterol >=240 mg/dL Recommendations of the NCEP Adult Treatment Panel for the following risk-cutoff thresholds for the [place] population. Performed By: #### L 503.6550, L503.6150, L500.4100, L503.6075, L100.0100, L500.2500 ####[facility] [address] [place], [address] Cholesterol in HDL [Mass/Vol] 52 mg/dL Normal [facility] Comment on above: Result Comment: Dede onal Cholesterol Education Program (NCEP) guidelines: <40 mg/dL: Low HDL-cholesterol (major risk factor for CHD) >= 60 mg/dL: High HDL-cholesterol (negative risk factor for CHD) HDL-cholesterol is affected by a number of factors, e.g. smoking, exercise, hormones, sex and age. Performed By: #### L 503.6550, L503.6150, L500.4100, L503.6075, L100.0100, L500.2500 ####[facility] [address] [place], [address] Cholesterol in LDL [Mass/Vol] 55 mg/dL Normal [facility] Comment on above: Result Comment: Bord rloscw=317-352 mg/dL Higher Asdn=196 mg/dL or greater Performed By: #### L 503.6550, L503.6150, L500.4100, L503.6075, L100.0100, L500.2500 ####[facility] [address] [place], [address] Cholesterol in VLDL [Mass/Vol] 18 mg/dL Normal 5-40 [facility] Comment on above: Performed By: #### L 503.6550, L503.6150, L500.4100, L503.6075, L100.0100, L500.2500 ####[facility] [address] [place], [address] Triglyceride [Mass/Vol] 91 mg/dL Normal [facility] Comment on above: Result Comment: The drugs N-Acetylcysteine and Metamizole may falsely depress this assay. Normal range: <150 mg/dL Borderline High: 150-199 mg/dL High: 200-499 mg/dL Very High: >500 mg/dL Performed By: #### L 503.6550, L503.6150, L500.4100, L503.6075, L100.0100, L500.2500 ####[facility] [address] [place], [address] Lymphocytes Auto (Unsp spec) [#/Vol]Ordered By: Addi Mario on 11-15-2024 Lymphocytes (Bld) [#/Vol] 2.07 10*3/uL 0.83-4.5 1 [facility] Lymphocytes/100 WBC Auto (Un sp spec)Ordered By: Arlethjimlilil Gecarissamaria del carmen on 11-15-2024 Lymphocytes/100 WBC (Bld) 27.1 % 19-41 [facility] MCV (mean corpuscular volume ) determinationOrdered By: Addi Mario on 11-15-2024 MCV (RBC) [Entitic vol] 99.5 fL High 80-94 [facility] Mean corpuscular hemoglobin (MCH) determinationOrdered By: josh Mario on 11-15-2024 MCH (RBC) [Entitic mass] 31.5 pg 27.0-32.0 [facility] Mean corpuscular hemoglobin concentration (MCHC) determinationOrdered By: josh Mario on 11-15-2024 MCHC (RBC) [Mass/Vol] 31.7 g/dL Low 32-36 [facility] Mean platelet volume determi nationOrdered By: Addi Mario on 11-15-2024 Platelet mean volume (Bld) [Entitic vol] 11.3 fL 6.2-12.0 [facility] Monocyte percentageOrdered B y: Addi Gecarissamaria del carmen on 11-15-2024 Monocytes/100 WBC (Bld) 11.1 % High 0-10 [facility] Neutrophil percentageOrdered By: josh Mario on 11-15-2024 Neutrophils/100 WBC (Bld) 58.7 % 47-70 [facility] Nucleated red blood cell per centageOrdered By: Addi Mario on 11-15-2024 Nucleated RBC/100 WBC (Bld) [Ratio] 0 % 0-5 [facility] Platelet countOrdered By: Aleah zackerykajal Mario on 11-15-2024 Platelets (Bld) [#/Vol] 142 10*3/uL Low 150-450 [facility] RBC Auto (Bld) [#/Vol]Ordere d By: Addi Mario on 11-15-2024 RBC (Bld) [#/Vol] 3.84 10*6/uL Low 4.6-6.2 [facility] Screening total cholesterol/ high density lipoprotein (HDL) cholesterol ratioOrdered By: Addi Mario on 11-15-2024 Cholesterol.total/Cholest austin in HDL [Mass ratio] 2.40 {ratio} [facility] Serum creatinine measurement (mass/volume)Ordered By: Addi Mario on 11-15-2024 Creatinine [Mass/Vol] 0.86 mg/dL 0.70-1.20 [facility] Serum glucose measurement (m ass/volume)Ordered By: Addi Mario on 11-15-2024 Glucose [Mass/Vol] 87 mg/dL 70-99 [facility] Serum or plasma anion gap de termination (moles/volume)Ordered By: Addi Mario 11-15-2024 Anion gap [Moles/Vol] 8 mmol/L 5-15 [facility] Serum or plasma calcium tay urement (mass/volume)Ordered By: Addi Mario on 11-15-2024 Calcium [Mass/Vol] 9.6 mg/dL 7.6-11.0 [facility] Serum or plasma cholesterol in HDL measurement (mass/volume)Ordered By: Addi Mario 11-15-2024 Cholesterol in HDL [Mass/Vol] 52 mg/dL >40 [facility] Comment on above: National Cholesterol Education Program (NCEP) guidelines:<40 mg/dL: Low HDL-cholesterol (major risk factor for CHD)>= 60 mg/dL: High HDL-cholesterol (negative risk factor for CHD)HDL-cholesterol is affected by a number of factors, e.g. smoking, exercise, hormones, sex and age. Serum or plasma cholesterol measurement (mass/volume)Ordered By: Addi Mario on 11-15-2024 Cholesterol [Mass/Vol] 126 mg/dL <201 [facility] Comment on above: Cholesterol level, D esirable <200 mg/dLBorderline high cholesterol 200-239 mg/dLHigh cholesterol >=240 mg/dLRecommendations of the NCEP Adult Treatment Panel for the following risk-cutoff thresholds for the [place] population. Serum or plasma ferritin precious surement (mass/volume)Ordered By: Addi Mario on 11-15-2024 Ferritin [Mass/Vol] 71 ng/mL 37-417 [facility] Serum or plasma potassium me asurementOrdered By: Addi Mario on 11-15-2024 Potassium [Moles/Vol] 4.4 mmol/L 3.3-5.1 [facility] Serum or plasma sodium measu rement (moles/volume)Ordered By: Addi Mario on 11-15-2024 Sodium [Moles/Vol] 139 mmol/L 133-145 [facility] Serum or plasma urea nitroge n measurement (mass/volume)Ordered By: Addi Mario on 11-15-2024 Urea nitrogen [Mass/Vol] 17 mg/dL 4-19 [facility] Triglycerides measurementOrd ered By: Addi Mario on 11-15-2024 Triglyceride [Mass/Vol] 91 mg/dL <199 [facility] Comment on above: The drugs N-Acetylcy steine and Metamizole may falsely depress this assay. Normal range: <150 mg/dLBorderline High: 150-199 mg/dLHigh: 200-499 mg/dLVery High: >500 mg/dL White blood cell (WBC) count Ordered By: Addi Mario on 11-15-2024 WBC (Bld) [#/Vol] 7.6 10*3/uL 4.4-11.0 [facility] Cardiology Visit Reporton Cardiology Visit Report [facility] [address] [place] [address]. [address] [place], [place] [address] OFFICE VISIT Date of Service: 10/23/24 MR#: [id number] Acct: [id number] Name: JESSEE RUST Rep #: [id number] : 1935 Provider: BASSEM Murcia Age/Sex: 89/M Location: [facility] Status: Signed HPI HPI History of Present [...] evidence of ischemia. He was evaluated at [facility] in November 2023 for non-ST myocardial [...] 99 Intake Visit Reasons: 6 M FU [employer] Assistant Required: No Is patient in pain?: No [...] DAILY Eye 1 10/15/22 10/23/24 History drops vwivijrp-avu-gpitk acid 0.4 1 tab PO DAILY supplement [...] hydrocortisone 2.5 % topical cream 1 applic [place] BID-QID PRN 01/04/24 10/23/24 Rx with perineal [...] 10/22/24 Rx furosemid (more content not included)... [facility] 10-03-2024 [facility] Telephone (OPHTMN) ---- JESSEE RUST ([id number]) 1935 M Date Time Provider Department 10/03/24 [facility] During your visit today, we recorded the following information about you: Leesa Stratton 10/03/2024 2:21 PM Signed patient reporting that he has not been taking his alphagan since 08/12, he was on the med for 2 days and then developed OU conjunctivitis, he took medicine for that but never went back on the alphagan what should he do at this point? 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 Normal [facility] Absolute neutrophil countOrd ered By: Addi Mario on 08-15-2024 Neutrophils (Bld) [#/Vol] 3.2 10*3/uL 2.0-7.7 [facility] Albumin to globulin ratioOrd ered By: Addi Mario on 08-15-2024 Albumin/Globulin [Mass ratio] 0.7 {ratio} Low 0.9-2.4 [facility] Basophil percentageOrdered B y: Addi Mario on 08-15-2024 Basophils/100 WBC (Bld) 0.7 % 0-1 [facility] Bilirubin, totalOrdered By: josh Mario on 08-15-2024 Bilirubin [Mass/Vol] 0.50 mg/dL 0.20-1.00 [facility] Comment on above: For patients on eltr ombopag therapy, use of Dimension Medora TBIL is not recommended. Blood urea nitrogen (BUN)/cr eatinine ratioOrdered By: Addi Mario on 08-15-2024 Urea nitrogen/Creatinine [Mass ratio] 15.4 mg/mg 10-20 [facility] CBC W/Diff, Automatedon 07-21 Absolute Lymph 1.84 X10 3/uL Normal 0.83-4.51 [facility] Comment on above: Performed By: #### L 503.0105, L100.0100, L500.4050 ####[facility] [address] [place], [address] Absolute Neut 3.2 X10 3/uL Normal 2.0-7.7 [facility] Comment on above: Performed By: #### L 503.0105, L100.0100, L500.4050 ####[facility] [address] [place], [address] Basophils/100 WBC (Bld) 0.7 % Normal 0-1 [facility] Comment on above: Performed By: #### L 503.0105, L100.0100, L500.4050 ####[facility] [address] [place], [address] Eosinophils/100 WBC (Bld) 3.2 % Normal 0-5 [facility] Comment on above: Performed By: #### L 503.0105, L100.0100, L500.4050 ####[facility] [address] [place], [address] Erythrocyte distribution width (RBC) [Ratio] 14.6 % Normal 11.6-14.6 [facility] Comment on above: Performed By: #### L 503.0105, L100.0100, L500.4050 ####[facility] [address] [place], [address] Hematocrit (Bld) [Volume fraction] 38.7 % Low 40-54 [facility] Comment on above: Performed By: #### L 503.0105, L100.0100, L500.4050 ####[facility] [address] [place], [address] Hemoglobin (Bld) [Mass/Vol] 12.5 g/dL Low 13.0-16.5 [facility] Comment on above: Performed By: #### L 503.0105, L100.0100, L500.4050 ####[facility] [address] [place], [address] IG% 0.300 Normal 0.0-0.9 [facility] Comment on above: Result Comment: IG% - Immature Granulocytes (promyelocytes, myelocytes and metamyelocytes) > 1% indicates that a LEFT SHIFT is Present. Performed By: #### L 503.0105, L100.0100, L500.4050 ####[facility] [address] [place], [address] Lymphocytes/100 WBC (Bld) 31.2 % Normal 19-41 [facility] Comment on above: Performed By: #### L 503.0105, L100.0100, L500.4050 ####[facility] [address] [place], [place], [address] MCH (RBC) [Entitic mass] 31.7 pg Normal 27.0-32.0 [facility] Comment on above: Performed By: #### L 503.0105, L100.0100, L500.4050 ####[facility] [address] [place], [address] MCHC (RBC) [Mass/Vol] 32.3 g/dL Normal 32-36 [facility] Comment on above: Performed By: #### L 503.0105, L100.0100, L500.4050 ####[facility] [address] [place], [address] MCV (RBC) [Entitic vol] 98.2 fL High 80-94 [facility] Comment on above: Performed By: #### L 503.0105, L100.0100, L500.4050 ####[facility] [address] [place], [address] Monocytes/100 WBC (Bld) 10.5 % High 0-10 [facility] Comment on above: Performed By: #### L 503.0105, L100.0100, L500.4050 ####[facility] [address] [place], [address] Neutrophils/100 WBC (Bld) 54.1 % Normal 47-70 [facility] Comment on above: Performed By: #### L 503.0105, L100.0100, L500.4050 ####[facility] [address] [place], [address] Nucleated RBC (Bld) [#/Vol] 0 10*3/uL Normal 0-5 [facility] Comment on above: Performed By: #### L 503.0105, L100.0100, L500.4050 ####[facility] [address] [place], [address] Platelet mean volume (Bld) [Entitic vol] 11.3 fL Normal 6.2-12.0 [facility] Comment on above: Performed By: #### L 503.0105, L100.0100, L500.4050 ####[facility] [address] [place], [address] Platelets (Bld) [#/Vol] 129 10*3/uL Low 150-450 [facility] Comment on above: Performed By: #### L 503.0105, L100.0100, L500.4050 ####[facility] [address] [place], [address] RBC (Bld) [#/Vol] 3.94 10*6/uL Low 4.6-6.2 [facility] Comment on above: Performed By: #### L 503.0105, L100.0100, L500.4050 ####[facility] [address] [place], [address] RDW SD 53.1 fl High 35.1-43.9 [facility] Comment on above: Performed By: #### L 503.0105, L100.0100, L500.4050 ####[facility] [address] [place], [address] WBC (Bld) [#/Vol] 5.9 10*3/uL Normal 4.4-11.0 [facility] Comment on above: Performed By: #### L 503.0105, L100.0100, L500.4050 ####[facility] [address] [place], [address] Carbon dioxide measurementOr dered By: Efewongbe Oleghe on 08-15-2024 CO2 [Moles/Vol] 31.0 mmol/L 21.0-32.0 [facility] Chloride measurementOrdered By: Addi Mario on 08-15-2024 Chloride [Moles/Vol] 104 mmol/L 98-107 [facility] Comprehensive Metabolic Prof ilon 08-15-2024 Albumin [Mass/Vol] 3.3 g/dL Normal 3.2-5.0 [facility] Comment on above: Performed By: #### L 503.0105, L100.0100, L500.4050 ####[facility] [address] [place], [address] Albumin/Globulin [Mass ratio] 0.7 {ratio} Low 0.9-2.4 [facility] Comment on above: Performed By: #### L 503.0105, L100.0100, L500.4050 ####[facility] [address] [place], [address] ALK P 91 U/L Normal 45-117 [facility] Comment on above: Performed By: #### L 503.0105, L100.0100, L500.4050 ####[facility] [address] [place], [address] ALT [Catalytic activity/Vol] 21 U/L Normal 16-61 [facility] Comment on above: Performed By: #### L 503.0105, L100.0100, L500.4050 ####[facility] [address] [place], [address] AST [Catalytic activity/Vol] 27 U/L Normal 15-37 [facility] Comment on above: Performed By: #### L 503.0105, L100.0100, L500.4050 ####[facility] [address] [place], [address] Bilirubin [Mass/Vol] 0.50 mg/dL Normal 0.20-1.00 [facility] Comment on above: Result Comment: For patients on eltrombopag therapy, use of Dimension Medora TBIL is not recommended. Performed By: #### L 503.0105, L100.0100, L500.4050 ####[facility] [address] [place], [address] BUN/CRE 15.4 RATIO Normal 10-20 [facility] Comment on above: Performed By: #### L 503.0105, L100.0100, L500.4050 ####[facility] [address] [place], [address] CA,Total 9.6 mg/dL Normal 8.5-10.1 [facility] Comment on above: Performed By: #### L 503.0105, L100.0100, L500.4050 ####[facility] [address] [place], [address] Chloride [Moles/Vol] 104 mmol/L Normal 98-107 [facility] Comment on above: Performed By: #### L 503.0105, L100.0100, L500.4050 ####[facility] [address] [place], [address] CO2 [Moles/Vol] 31.0 mmol/L Normal 21.0-32.0 [facility] Comment on above: Performed By: #### L 503.0105, L100.0100, L500.4050 ####[facility] [address] [place], [address] Creatinine [Mass/Vol] 1.04 mg/dL Normal 0.70-1.30 [facility] Comment on above: Result Comment: The validity of the calculated GFR GFRAA in patients over 70 years has not been determined. Clinical correlation is essential. Performed By: #### L 503.0105, L100.0100, L500.4050 ####[facility] [address] [place], [address] EST GFR - AA 87 mL/min Normal >60 [facility] Comment on above: Result Comment: Afri can [place] GFR Calc Performed By: #### L 503.0105, L100.0100, L500.4050 ####[facility] [address] [place], [address] GAP 5 Normal 5-15 [facility] Comment on above: Performed By: #### L 503.0105, L100.0100, L500.4050 ####[facility] [address] [place], [address] GFR/1.73 sq M.predicted among non-blacks MDRD (S/P/Bld) [Vol rate/Area] 72 mL/min/{1.73_m2} Normal >60 [facility] Comment on above: Result Comment: Non- GFR Calc Performed By: #### L 503.0105, L100.0100, L500.4050 ####[facility] [address] [place], [address] Globulin (S) [Mass/Vol] 4.7 g/dL High 2.2-4.2 [facility] Comment on above: Performed By: #### L 503.0105, L100.0100, L500.4050 ####[facility] [address] [place], [address] Glucose [Mass/Vol] 108 mg/dL High 74-106 [facility] Comment on above: Result Comment: Fast ing Glucose result from 100 to 125 mg/dL suggests IMPAIRED HOMEOSTASIS per A.D.A. criteria. Performed By: #### L 503.0105, L100.0100, L500.4050 ####[facility] [address] [place], [address] Potassium [Moles/Vol] 3.9 mmol/L Normal 3.5-5.1 [facility] Comment on above: Performed By: #### L 503.0105, L100.0100, L500.4050 ####[facility] [address] [place], [address] Sodium [Moles/Vol] 140 mmol/L Normal 136-145 [facility] Comment on above: Performed By: #### L 503.0105, L100.0100, L500.4050 ####[facility] [address] [place], [address] T PROT 8.0 g/dL Normal 6.4-8.2 [facility] Comment on above: Performed By: #### L 503.0105, L100.0100, L500.4050 ####[facility] [address] [place], [address] Urea nitrogen [Mass/Vol] 16 mg/dL Normal 7-18 [facility] Comment on above: Performed By: #### L 503.0105, L100.0100, L500.4050 ####[facility] [address] [place], [address] Eosinophil percentageOrdered By: Addi Mario on 08-15-2024 Eosinophils/100 WBC (Bld) 3.2 % 0-5 [facility] Erythrocyte distribution wid th ratioOrdered By: Addi Mario on 08-15-2024 Erythrocyte distribution width (RBC) [Ratio] 14.6 % 11.6-14.6 [facility] Erythrocyte distribution wid th standard deviationOrdered By: Addi Mario on 08-15-2024 Erythrocyte distribution width (RBC) [Entitic vol] 53.1 fL High 35.1-43.9 [facility] Estimated glomerular filtrat ion rate (GFR) AmericanOrdered By: Addi Mario on 08-15-2024 Estimated GFR (MDRD) Amer 87 mL/min >60 [facility] Comment on above: GFR Calc Glomerular filtration rate ( GFR) estimationOrdered By: Aleahjosh Mario on 08-15-2024 Estimated GFR (MDRD) Non-Af Amer 72 mL/min >60 [facility] Comment on above: Non- GFR Calc Glucose measurementOrdered B y: Addi Mario on 08-15-2024 Glucose [Mass/Vol] 108 mg/dL High 74-106 [facility] Comment on above: Fasting Glucose resu lt from 100 to 125 mg/dL suggests IMPAIRED HOMEOSTASIS per A.D.A. criteria. Hematocrit Auto (Bld) [Volum e fraction]Ordered By: Aleahjosh Mario on 08-15-2024 Hematocrit (Bld) [Volume fraction] 38.7 % Low 40-54 [facility] Hemoglobin measurementOrdere d By: Addi Joorubina on 08-15-2024 Hemoglobin (Bld) [Mass/Vol] 12.5 g/dL Low 13.0-16.5 [facility] Immature granulocytes/100 WB C Auto (Bld)Ordered By: Aleahzackeryjimlilli Gecarissamaria del carmen on 08-15-2024 Immature granulocytes/100 WBC (Bld) 0.300 % 0.0-0.9 [facility] Comment on above: IG% - Immature Granu locytes (promyelocytes, myelocytes and metamyelocytes) > 1% indicates that a LEFT SHIFT is Present. Internal Medicine Office Vis itodominga 08-15-2024 Internal Medicine Office Visit [facility] [place], [place] [address] OFFICE VISIT Date of Service: 08/15/24 MR#: [id number] Acct: [id number] Name: JESSEE RUST Rep #: [id number] : 1935 Provider: Dr. Addi alvarado MD Age/Sex: 89/M Location: [facility] Status: Signed Intake Vital Signs 05/16/24 13:23 [...] M FU Chief Complaint: Follow-up chronic conditions [employer] Assistant Required: No Is patient in pain?: No [...] DAILY BPH #90 tabs 08/18/23 08/15/24 Rx qvupuedg-ggx-llolp acid 0.4 1 tab PO DAILY supplement [...] hydrocortisone 2.5 % topical cream 1 applic [place] BID-QID PRN 01/04/24 08/15/24 Rx with perineal [...] Hyponatremia Thrombocytope (more content not included)... Normal [facility] Laboratory - Chemistry and C hemistry - challengeOrdered By: Addi Mario on 08-15-2024 AST [Catalytic activity/Vol] 27 U/L 15-37 [facility] Lymphocytes Auto (Unsp spec) [#/Vol]Ordered By: Addi Mario on 08-15-2024 Lymphocytes (Bld) [#/Vol] 1.84 10*3/uL 0.83-4.5 1 [facility] Lymphocytes/100 WBC Auto (Un sp spec)Ordered By: Addi Mario on 08-15-2024 Lymphocytes/100 WBC (Bld) 31.2 % 19-41 [facility] MCV (mean corpuscular volume ) determinationOrdered By: Addi Mario on 08-15-2024 MCV (RBC) [Entitic vol] 98.2 fL High 80-94 [facility] Mean corpuscular hemoglobin (MCH) determinationOrdered By: Addi Mario on 08-15-2024 MCH (RBC) [Entitic mass] 31.7 pg 27.0-32.0 [facility] Mean corpuscular hemoglobin concentration (MCHC) determinationOrdered By: Addi Mario on 08-15-2024 MCHC (RBC) [Mass/Vol] 32.3 g/dL 32-36 [facility] Mean platelet volume determi nationOrdered By: Addi Mario on 08-15-2024 Platelet mean volume (Bld) [Entitic vol] 11.3 fL 6.2-12.0 [facility] Monocyte percentageOrdered B y: Addi Mario on 08-15-2024 Monocytes/100 WBC (Bld) 10.5 % High 0-10 [facility] Neutrophil percentageOrdered By: Addi Mario on 08-15-2024 Neutrophils/100 WBC (Bld) 54.1 % 47-70 [facility] Nucleated red blood cell per centageOrdered By: Addi Mario on 08-15-2024 Nucleated RBC/100 WBC (Bld) [Ratio] 0 % 0-5 [facility] Platelet countOrdered By: Aleah Mario on 08-15-2024 Platelets (Bld) [#/Vol] 129 10*3/uL Low 150-450 [facility] Potassium measurementOrdered By: Addi Mario on 08-15-2024 Potassium [Moles/Vol] 3.9 mmol/L 3.5-5.1 [facility] RBC Auto (Bld) [#/Vol]Ordere d By: Addi Mario on 08-15-2024 RBC (Bld) [#/Vol] 3.94 10*6/uL Low 4.6-6.2 [facility] Serum anion gap measurementO rdered By: Addi Mario on 08-15-2024 Anion gap [Moles/Vol] 5 mmol/L 5-15 [facility] Serum globulin measurementOr dered By: Addi Mario on 08-15-2024 Globulin (S) [Mass/Vol] 4.7 g/dL High 2.2-4.2 [facility] Serum or plasma alanine castellano otransferase (ALT) measurementOrdered By: Addi Mario on 08-15-2024 ALT [Catalytic activity/Vol] 21 U/L 16-61 [facility] Serum or plasma albumin tay urement (mass/volume)Ordered By: Addi Mario on 08-15-2024 Albumin [Mass/Vol] 3.3 g/dL 3.2-5.0 [facility] Serum or plasma alkaline lyndsey sphatase measurementOrdered By: Addi Mario on 08-15-2024 ALP [Catalytic activity/Vol] 91 U/L 45-117 [facility] Serum or plasma calcium tay urement (mass/volume)Ordered By: Aleahzackerykajal Joorubina on 08-15-2024 Calcium [Mass/Vol] 9.6 mg/dL 8.5-10.1 [facility] Serum or plasma creatinine m easurement (mass/volume)Ordered By: Aleahzackeryjimlilli Gerubina on 08-15-2024 Creatinine [Mass/Vol] 1.04 mg/dL 0.70-1.30 [facility] Comment on above: The validity of the calculated GFR & GFRAA in patients over 70 years has not been determined. Clinical correlation is essential. Serum or plasma urea nitroge n measurement (mass/volume)Ordered By: Aleahzackeryjimlilli Gerubina on 08-15-2024 Urea nitrogen [Mass/Vol] 16 mg/dL 7-18 [facility] Sodium levelOrdered By: Aleahzackery kajal Joorubina on 08-15-2024 Sodium [Moles/Vol] 140 mmol/L 136-145 [facility] Total proteinOrdered By: Sonny spence Joorubina on 08-15-2024 Protein [Mass/Vol] 8.0 g/dL 6.4-8.2 [facility] Vitamin B12on 08-15-2024 Cobalamin (Vitamin B12) [Mass/Vol] 992 pg/mL High 211-911 [facility] Comment on above: Performed By: #### L 503.0105, L100.0100, L500.4050 ####[facility] [address] [place], [address] Vitamin B12 measurementOrder ed By: Addi Joocarissamaria del carmen on 08-15-2024 Cobalamin (Vitamin B12) [Mass/Vol] 992 pg/mL High 211-911 [facility] White blood cell (WBC) count Ordered By: Addi Joorubina on 08-15-2024 WBC (Bld) [#/Vol] 5.9 10*3/uL 4.4-11.0 [facility] Urgent Care Visit Reporton 1 10-09-2023 Urgent Care Visit Report [facility] [address], [address] [place] [address] OFFICE VISIT Date of Service: 08/09/24 MR#: [id number] Acct: [id number] Name: JESSEE RUST Rep #: [id number] : 1935 Provider: BASSEM Loera Age/Sex: 89/M Location: [facility] Status: Signed Intake Vital Signs 06/14/24 08:21 [...] PINKEYE Chief Complaint: Concern for pink eye [employer] Assistant Required: No Accompanied by: Is patient in [...] heart health #90 09/15/23 08/09/24 Rx tabs kpjjrvjt-owz-cfack acid 0.4 1 tab PO DAILY supplement [...] hydrocortisone 2.5 % topical cream 1 applic [place] BID-QID PRN 01/04/24 08/09/24 Rx with perineal [...] to apply warm compresses to alleviate crusting. [facility] Medical History Perianal dermatitis CHF (congestive heart [...] foot shahram (more content not included)... Normal [facility] VISUAL FIELD 24-2 OU (BOTH E YES)on 07-30-2024 [facility] Radiology Study observation (narrative) [facility] Pulmonary Visit Reporton Pulmonary Visit Report [facility] [place] [address] [place], [place] [id number] OFFICE VISIT Date of Service: 06/14/24 MR#: [id number] Acct: [id number] Name: JESSEE RUST Rep #: [id number] : 1935 Provider: HUAN Sharma Age/Sex: 89/M Location: [facility] Status: Signed Assessment and Plan Assessment and [...] heart health #90 09/15/23 06/14/24 Rx tabs exktjecm-uzf-adzyk acid 0.4 1 tab PO DAILY supplement 12/02/23 06/14/24 History mg-lycopene 300 mcg-lutein 250 mcg tablet (Centrum Silver) netarsudil 0.02 %-la (more content not included)... Normal [facility] 05-15-2024 [facility] Telephone (OPHTMN) ---- JESSEE RUST ([id number]) 1935 M Date Time Provider Department 05/15/24 [facility] During your visit today, we [...] 03/12/2024 2:50 PM Status: Signed New from [facility] Tmax: <22; Pachy: -, - Lasers and [...] ON ELBOWS (more content not included)... [facility] Tele[facility] (OPHTMN) ---- JESSEE RUST ([id number]) 1935 M Date Time Provider Department 03/14/24 LUCINA FRIEDMAN OPHN During your visit today, we recorded the following information about you: Lucina Friedman, WATER SANDER 03/14/2024 1:45 PM Signed supply service worker received a consult order from Dr. Shea who is referring the patient to the [facility] for low vision services. supply service worker called the patient and discussed the referral and sight center services. Patient states that the sight center is too far from [place], [place] and has requested SW to send him vision resources. supply service worker and patient discussed use of I-Phone and I-Pad vision accessibility for improved reading and using [employer] for additional assistance with reading information. Patient is very comfortable using assistive technology and prefers to the methods he is currently using for visual adaptations. Discussed at length [employer] videos for tech learning and other information from various websites that would be helpful for the patient. SW provided education and information about the Independent Living Program through [employer] [place] [facility]) and that can help the patient with the application and connection to an OOD counselor who could provide low vision assessment and adaptive visual aids from an in-home visit. Patient would like the information sent and will think about it and get back to this SW. supply service worker to email vision resources. Patient will [...] Fully Assessed Reason for Visit: Consult to [facility] Social Work [Other] Visit Diagnosis:Primary open angle glaucoma (POAG) of both eyes, severe stage [H40.1133] Order(s):CONSULT TO [facility] [0974229] Order #: [id number]: 1 Prescriptions as of 03/14/2024 - furosemide [...] affected a (more content not included)... Normal [facility] CONSULT TO [facility] 03-14-2024 Patient declined sight center. Requested vision resources. Thank you. [facility] OCT OPTIC NERVE CIRRUS OU (B OTH EYES)on 03-12-2024 [facility] Radiology Study observation (narrative) [facility] Absolute lymphocyte countOrd ered By: Arsenio Mcgregor on 12-30-2023 Lymphocytes Auto (Unsp spec) [#/Vol] 2.79 10*3/uL 0.83-4.51 [facility] Automated lymphocyte count a s percentage of total leukocytesOrdered By: Arsenio Mcgregor on 12-30-2023 Lymphocytes/100 WBC Auto (Unsp spec) 35.0 % 19-41 [facility] Basophil percentageOrdered B y: Arsenio Mcgregor on 12-30-2023 Basophils/100 WBC (Bld) 0.9 % 0-1 [facility] Chloride [Moles/Vol] 105 mmol/L 98-107 [facility] Eosinophils/100 WBC (Bld) 5.4 % 0-5 [facility] Glucose [Mass/Vol] 103 mg/dL 74-106 [facility] Comment on above: Fasting Glucose resu lt from 100 to 125 mg/dL suggests IMPAIRED HOMEOSTASIS per A.D.A. criteria. Hemoglobin (Bld) [Mass/Vol] 9.8 g/dL 13.0-16.5 [facility] Monocytes/100 WBC (Bld) 13.6 % 0-10 [facility] Neutrophils (Bld) [#/Vol] 3.6 10*3/uL 2.0-7.7 [facility] Neutrophils/100 WBC (Bld) 44.5 % 47-70 [facility] Potassium [Moles/Vol] 4.2 mmol/L 3.5-5.1 [facility] Sodium [Moles/Vol] 138 mmol/L 136-145 [facility] WBC (Bld) [#/Vol] 8.0 10*3/uL 4.4-11.0 [facility] Determination of erythrocyte mean corpuscular volume (MCV)Ordered By: Arsenio Mcgregor on 12-30-2023 MCV (RBC) [Entitic vol] 96.4 fL 80-94 [facility] Erythrocyte distribution wid th ratioOrdered By: Arsenio Balbir on 12-30-2023 Erythrocyte distribution width (RBC) [Ratio] 15.6 % 11.6-14.6 [facility] Erythrocyte distribution wid th standard deviationOrdered By: Arsenio Mcgregor on 12-30-2023 Erythrocyte distribution width (RBC) [Entitic vol] 55.5 fL 35.1-43.9 [facility] Hematocrit Auto (Bld) [Volum e fraction]Ordered By: Arsenio Mcgregor on 12-30-2023 Hematocrit (Bld) [Volume fraction] 31.8 % 40-54 [facility] Immature granulocytes/100 WB C Auto (Bld)Ordered By: Arsenio Mcgregor on 12-30-2023 Immature granulocytes/100 WBC (Bld) 0.600 % 0.0-0.9 [facility] Comment on above: IG% - Immature Granu locytes (promyelocytes, myelocytes and metamyelocytes) > 1% indicates that a LEFT SHIFT is Present. Laboratory - Chemistry and C hemistry - challengeOrdered By: Arsenio Mcgregor on 12-30-2023 CO2 [Moles/Vol] 33.0 mmol/L 21.0-32.0 [facility] Urea nitrogen/Creatinine [Mass ratio] 19.0 mg/mg 10-20 [facility] Laboratory - Hematology and Cell countsOrdered By: Arsenio Mcgregor on 12-30-2023 MCH (RBC) [Entitic mass] 29.7 pg 27.0-32.0 [facility] MCHC (RBC) [Mass/Vol] 30.8 g/dL 32-36 [facility] Nucleated RBC/100 WBC (Bld) [Ratio] 0 % 0-5 [facility] Platelet mean volume (Bld) [Entitic vol] 9.7 fL 6.2-12.0 [facility] Platelets (Bld) [#/Vol] 183 10*3/uL 150-450 [facility] No Panel InformationOrdered By: Arsenio Mcgregor on 12-30-2023 Estimated Creatinine Clearance Calc 51.48 ml/min [facility] Estimated GFR (MDRD) Amer 70 mL/min >60 [facility] Comment on above: GFR Calc Estimated GFR (MDRD) Non-Af Amer 58 mL/min >60 [facility] Comment on above: Non- GFR Calc RBC Auto (Bld) [#/Vol]Ordere d By: Arsenio Mcgregor on 12-30-2023 RBC (Bld) [#/Vol] 3.30 10*6/uL 4.6-6.2 [facility] Serum or plasma calcium tay urement (mass/volume)Ordered By: Arsenio Mcgregor on 12-30-2023 Calcium [Mass/Vol] 9.2 mg/dL 8.5-10.1 [facility] Serum or plasma creatinine m easurement (mass/volume)Ordered By: Arsenio Mcgregor 12-30-2023 Creatinine [Mass/Vol] 1.26 mg/dL 0.70-1.30 [facility] Comment on above: The validity of the calculated GFR & GFRAA in patients over 70 years has not been determined. Clinical correlation is essential. Serum or plasma urea nitroge n measurement (mass/volume)Ordered By: Arsenio Mcgregor on 12-30-2023 Urea nitrogen [Mass/Vol] 24 mg/dL 7-18 [facility] Thin prep Papanicolaou smear with manual screeningOrdered By: Arsenio Mcgregor on 12-30-2023 Thin prep Papanicolaou smear with manual screening 0 5-15 [facility] Absolute lymphocyte countOrd ered By: Arsenio Mcgregor on 12-23-2023 Lymphocytes Auto (Unsp spec) [#/Vol] 1.50 10*3/uL 0.83-4.51 [facility] Automated lymphocyte count a s percentage of total leukocytesOrdered By: Arsenio Mcgregor on 12-23-2023 Lymphocytes/100 WBC Auto (Unsp spec) 18.8 % 19-41 [facility] Basophil percentageOrdered B y: Arsenio Mcgregor on 12-23-2023 Basophils/100 WBC (Bld) 0.5 % 0-1 [facility] Chloride [Moles/Vol] 103 mmol/L 98-107 [facility] Eosinophils/100 WBC (Bld) 2.0 % 0-5 [facility] Glucose [Mass/Vol] 102 mg/dL 74-106 [facility] Comment on above: Fasting Glucose resu lt from 100 to 125 mg/dL suggests IMPAIRED HOMEOSTASIS per A.D.A. criteria. Hemoglobin (Bld) [Mass/Vol] 10.0 g/dL 13.0-16.5 [facility] Monocytes/100 WBC (Bld) 16.8 % 0-10 [facility] Neutrophils (Bld) [#/Vol] 4.9 10*3/uL 2.0-7.7 [facility] Neutrophils/100 WBC (Bld) 61.5 % 47-70 [facility] Potassium [Moles/Vol] 4.0 mmol/L 3.5-5.1 [facility] Sodium [Moles/Vol] 136 mmol/L 136-145 [facility] WBC (Bld) [#/Vol] 8.0 10*3/uL 4.4-11.0 [facility] Determination of erythrocyte mean corpuscular volume (MCV)Ordered By: Arsenio Mcgregor on 12-23-2023 MCV (RBC) [Entitic vol] 95.3 fL 80-94 [facility] Erythrocyte distribution wid th ratioOrdered By: Arsenio Mcgregor on 12-23-2023 Erythrocyte distribution width (RBC) [Ratio] 15.6 % 11.6-14.6 [facility] Erythrocyte distribution wid th standard deviationOrdered By: Arsenio Mcgregor on 12-23-2023 Erythrocyte distribution width (RBC) [Entitic vol] 54.6 fL 35.1-43.9 [facility] Hematocrit Auto (Bld) [Volum e fraction]Ordered By: Arsenio Mcgregor on 12-23-2023 Hematocrit (Bld) [Volume fraction] 32.1 % 40-54 [facility] Immature granulocytes/100 WB C Auto (Bld)Ordered By: Arsenio Mcgregor on 12-23-2023 Immature granulocytes/100 WBC (Bld) 0.400 % 0.0-0.9 [facility] Comment on above: IG% - Immature Granu locytes (promyelocytes, myelocytes and metamyelocytes) > 1% indicates that a LEFT SHIFT is Present. Laboratory - Chemistry and C hemistry - challengeOrdered By: Arsenio Mcgregor 12-23-2023 CO2 [Moles/Vol] 30.0 mmol/L 21.0-32.0 [facility] Urea nitrogen/Creatinine [Mass ratio] 26.4 mg/mg 10-20 [facility] Laboratory - Hematology and Cell countsOrdered By: Arsenio Mcgregor 12-23-2023 MCH (RBC) [Entitic mass] 29.7 pg 27.0-32.0 [facility] MCHC (RBC) [Mass/Vol] 31.2 g/dL 32-36 [facility] Nucleated RBC/100 WBC (Bld) [Ratio] 0 % 0-5 [facility] Platelet mean volume (Bld) [Entitic vol] 9.8 fL 6.2-12.0 [facility] Platelets (Bld) [#/Vol] 188 10*3/uL 150-450 [facility] No Panel InformationOrdered By: Arsenio Mcgregor on 12-23-2023 Estimated Creatinine Clearance Calc 59.39 ml/min [facility] Estimated GFR (MDRD) Amer 82 mL/min >60 [facility] Comment on above: GFR Calc Estimated GFR (MDRD) Non-Af Amer 67 mL/min >60 [facility] Comment on above: Non- GFR Calc RBC Auto (Bld) [#/Vol]Ordere d By: Arsenio Mcgregor on 12-23-2023 RBC (Bld) [#/Vol] 3.37 10*6/uL 4.6-6.2 [facility] Serum or plasma calcium tay urement (mass/volume)Ordered By: Arsenio Mcgregor on 12-23-2023 Calcium [Mass/Vol] 9.0 mg/dL 8.5-10.1 [facility] Serum or plasma creatinine m easurement (mass/volume)Ordered By: Arsenio Mcgregor on 12-23-2023 Creatinine [Mass/Vol] 1.10 mg/dL 0.70-1.30 [facility] Comment on above: The validity of the calculated GFR & GFRAA in patients over 70 years has not been determined. Clinical correlation is essential. Serum or plasma urea nitroge n measurement (mass/volume)Ordered By: Arsenio Mcgregor on 12-23-2023 Urea nitrogen [Mass/Vol] 29 mg/dL 7-18 [facility] Thin prep Papanicolaou smear with manual screeningOrdered By: Arsenio Mcgregor on 12-23-2023 Thin prep Papanicolaou smear with manual screening 3 5-15 [facility] Basophil percentageOrdered B y: Arsenio Mcgregor on 12-10-2023 Basophil percentage 50-100 SEEN /hpf 0-5 [facility] Bilirubin Test strip Ql (U)O rdered By: Arsenio Mcgregor on 12-10-2023 Bilirubin Ql (U) Negative Negative [facility] Culture, urineOrdered By: Izaiah Mcgregor on 12-10-2023 Bacteria identified Cx Nom (U) Presumptive C albicans [facility] Bacteria identified Cx Nom (U) Negative [facility] Hyaline casts LM.LPF (Urine sed) [#/Area]Ordered By: Arsenio Mcgregor on 12-10-2023 Hyaline casts (Urine sed) [#/Area] 0 /[LPF] 0-5 [facility] Ketones Test strip Ql (U)Ord ered By: Arsenio Mcgregor on 12-10-2023 Ketones Ql (U) Negative Negative [facility] Mucus LM Ql (Urine sed)Order ed By: Arsenio Mcgregor on 12-10-2023 Mucus Ql (Urine sed) 1+ /hpf [facility] Nitrite Test strip Ql (U)Ord ered By: Arsenio Mcgregor on 12-10-2023 Nitrite Ql (U) Negative Negative [facility] No Panel InformationOrdered By: Arsenio Mcgregor on 12-10-2023 Urine RBC 25-50 SEEN /hpf 0-5 [facility] Protein Test strip Ql (U)Ord ered By: Arsenio Mcgregor on 12-10-2023 Protein Ql (U) 30 mg/dl Negative [facility] Squamous epithelial cells de tection in urine sediment by light microscopyOrdered By: Arsenio Mcgregor on 12-10-2023 Epithelial cells.squamous LM Ql (Urine sed) 0-5 SEEN /hpf 0-5 [facility] Urine blood detectionOrdered By: Arsenio Mcgregor on 12-10-2023 RBC Ql (U) 250 /ul Negative [facility] Urine clarityOrdered By: Arsenio Mcgregor on 12-10-2023 Clarity (U) Sl. Cloudy Clear [facility] Urine color determinationOrd ered By: Arsenio Mcgregor on 12-10-2023 Color (U) Yellow Yellow [facility] Urine glucose detectionOrder ed By: Arsenio Mcgregor on 12-10-2023 Glucose Ql (U) Normal mg/dl Normal [facility] Urine leukocyte esterase det ection by dipstickOrdered By: Arsenio Mcgregor on 12-10-2023 Leukocyte esterase Test strip Ql (U) 500 /ul Negative [facility] Urine pHOrdered By: Arsenio Mcgregor on 12-10-2023 pH (U) 6.0 [pH] 5.0 - 8.0 [facility] Urine sediment bacteria coun t by microscopy (number/high power field)Ordered By: Arsenio Mcgregor on 12-10-2023 Bacteria LM.HPF (Urine sed) [#/Area] 1 /[HPF] None Seen [facility] Urine specific gravity measu rementOrdered By: Arsenio Mcgregor on 12-10-2023 Specific gravity (U) [Rel density] 1.010 1.002-1.030 [facility] Urine urobilinogen measureme ntOrdered By: Arsenio Mcgregor on 12-10-2023 Urobilinogen Ql (U) Normal mg/dl Normal [facility] Blood manual differential co mment interpretation (narrative result)Ordered By: Arsenio Mcgregor on 12-09-2023 Manual differential comment Theodore (Bld) [Interp] SCANNED [facility] Comment on above: MONOCYTOSIS PRESENT Absolute lymphocyte countOrd ered By: Klaudia Gonzales on 12-08-2023 Lymphocytes Auto (Unsp spec) [#/Vol] 1.74 10*3/uL 0.83-4.51 [facility] Automated lymphocyte count a s percentage of total leukocytesOrdered By: Klaudia Gonzales on 12-08-2023 Lymphocytes/100 WBC Auto (Unsp spec) 19.1 % 19-41 [facility] Basophil percentageOrdered B y: Klaudia Gonzales on 12-08-2023 Basophils/100 WBC (Bld) 0.3 % 0-1 [facility] Chloride [Moles/Vol] 104 mmol/L 98-107 [facility] Eosinophils/100 WBC (Bld) 1.7 % 0-5 [facility] Glucose [Mass/Vol] 114 mg/dL 74-106 [facility] Comment on above: Fasting Glucose resu lt from 100 to 125 mg/dL suggests IMPAIRED HOMEOSTASIS per A.D.A. criteria. Hemoglobin (Bld) [Mass/Vol] 9.7 g/dL 13.0-16.5 [facility] Monocytes/100 WBC (Bld) 15.0 % 0-10 [facility] Neutrophils (Bld) [#/Vol] 5.7 10*3/uL 2.0-7.7 [facility] Neutrophils/100 WBC (Bld) 63.1 % 47-70 [facility] Potassium [Moles/Vol] 3.7 mmol/L 3.5-5.1 [facility] Sodium [Moles/Vol] 138 mmol/L 136-145 [facility] WBC (Bld) [#/Vol] 9.1 10*3/uL 4.4-11.0 [facility] Determination of erythrocyte mean corpuscular volume (MCV)Ordered By: Klaudia Gonzales on 12-08-2023 MCV (RBC) [Entitic vol] 93.4 fL 80-94 [facility] Erythrocyte distribution wid th ratioOrdered By: Klaudia Gonzales on 12-08-2023 Erythrocyte distribution width (RBC) [Ratio] 15.2 % 11.6-14.6 [facility] Erythrocyte distribution wid th standard deviationOrdered By: Klaudia Gonzales on 12-08-2023 Erythrocyte distribution width (RBC) [Entitic vol] 52.7 fL 35.1-43.9 [facility] Hematocrit Auto (Bld) [Volum e fraction]Ordered By: Klaudia Gonzales on 12-08-2023 Hematocrit (Bld) [Volume fraction] 29.8 % 40-54 [facility] Immature granulocytes/100 WB C Auto (Bld)Ordered By: Klaudia Gonzales on 12-08-2023 Immature granulocytes/100 WBC (Bld) 0.800 % 0.0-0.9 [facility] Comment on above: IG% - Immature Granu locytes (promyelocytes, myelocytes and metamyelocytes) > 1% indicates that a LEFT SHIFT is Present. Laboratory - Chemistry and C hemistry - challengeOrdered By: Klaudia Gonzales on 12-08-2023 CO2 [Moles/Vol] 28.0 mmol/L 21.0-32.0 [facility] Urea nitrogen/Creatinine [Mass ratio] 19.2 mg/mg 10-20 [facility] Laboratory - Hematology and Cell countsOrdered By: Klaudia Gonzales on 12-08-2023 MCH (RBC) [Entitic mass] 30.4 pg 27.0-32.0 [facility] MCHC (RBC) [Mass/Vol] 32.6 g/dL 32-36 [facility] Nucleated RBC/100 WBC (Bld) [Ratio] 0 % 0-5 [facility] Platelet mean volume (Bld) [Entitic vol] 10.4 fL 6.2-12.0 [facility] Platelets (Bld) [#/Vol] 134 10*3/uL 150-450 [facility] No Panel InformationOrdered By: Klaudia Gonzales on 12-08-2023 Atypical Lymphocytes RARE % [facility] Estimated Creatinine Clearance Calc 50.84 ml/min [facility] Estimated GFR (MDRD) Amer 67 mL/min >60 [facility] Comment on above: GFR Calc Estimated GFR (MDRD) Non-Af Amer 56 mL/min >60 [facility] Comment on above: Non- GFR Calc RBC Auto (Bld) [#/Vol]Ordere d By: Klaudia Gonzales on 12-08-2023 RBC (Bld) [#/Vol] 3.19 10*6/uL 4.6-6.2 [facility] Serum or plasma calcium tay urement (mass/volume)Ordered By: Klaudia Gonzales on 12-08-2023 Calcium [Mass/Vol] 8.7 mg/dL 8.5-10.1 [facility] Serum or plasma creatinine m easurement (mass/volume)Ordered By: Klaudia Gonzales on 12-08-2023 Creatinine [Mass/Vol] 1.30 mg/dL 0.70-1.30 [facility] Comment on above: The validity of the calculated GFR & GFRAA in patients over 70 years has not been determined. Clinical correlation is essential. Serum or plasma urea nitroge n measurement (mass/volume)Ordered By: Klaudia Gonzales on 12-08-2023 Urea nitrogen [Mass/Vol] 25 mg/dL 7-18 [facility] Thin prep Papanicolaou smear with manual screeningOrdered By: Klaudia Gonzales on 12-08-2023 Thin prep Papanicolaou smear with manual screening 6 5-15 [facility] Blood manual differential co mment interpretation (narrative result)Ordered By: Klaudia Gonzales on 12-07-2023 Manual differential comment Theodore (Bld) [Interp] SCANNED [facility] Laboratory - Chemistry and C hemistry - challengeOrdered By: Vanessa Simmons on 12-07-2023 Magnesium [Mass/Vol] 2.0 mg/dL 1.6-2.6 [facility] Activated partial thrombopla stin time (aPTT) in platelet poor plasma by coagulation aOrdered By: Miguelito Laguna on 12-03-2023 aPTT Coag (PPP) [Time] 71.0 s 24.1-36.2 [facility] Review by pathologistOrdered By: Miguelito Laguna on 12-03-2023 Pathologist review Theodore (Unsp spec) [Interp] Reviewed [facility] Comment on above: Previous reported re sult: January bob Edited by: NORA on 12/06/23:1403Neutrophilic leukocytosis with left shift.Normocytic anemia.Mild Thrombocytopenia.Clinical correlation necessary.Marcelo Perez M.D. 12/06/23 AMENDED REPORT 12/06/23 1403 PATH REV previously reported as: January Absolute lymphocyte countOrd ered By: Antonio James on 12-02-2023 Lymphocytes Auto (Unsp spec) [#/Vol] 1.02 10*3/uL 0.83-4.51 [facility] Activated partial thrombopla stin time (aPTT) in platelet poor plasma by coagulation aOrdered By: Antonio James on 12-02-2023 aPTT Coag (PPP) [Time] 34.4 s 24.1-36.2 [facility] Assessment of wrist artery p atency prior to arterial punctureOrdered By: Antonio James on 12-02-2023 Arterial patency Wrist artery --pre arterial puncture Positive [facility] Automated lymphocyte count a s percentage of total leukocytesOrdered By: Antonio James on 12-02-2023 Lymphocytes/100 WBC Auto (Unsp spec) 11.5 % 19-41 [facility] Base excessOrdered By: Antonio James on 12-02-2023 Base excess Calc (BldV) [Moles/Vol] 1 mmol/L -2-2 [facility] Basophil percentageOrdered B y: Antonio James on 12-02-2023 Lactate [Moles/Vol] 2.3 mmol/L 0.4-2.0 [facility] Comment on above: Critical Result(s) C alled at: 18:41:24 12/02/2023 by: Ev Zaidi to [place]. Results read back by same. Basophil percentage 26 mmol/L [facility] Basophils/100 WBC (Bld) 93 % 95-99 [facility] Basophil percentage 10-25 SEEN /hpf 0-5 [facility] Chloride [Moles/Vol] 100 mmol/L 98-107 [facility] Glucose [Mass/Vol] 134 mg/dL 74-106 [facility] Comment on above: Fasting Glucose resu lt greater than or equal to 126 mg/dL suggests DIABETES MELLITUS per A.D.A. criteria. Lactate [Moles/Vol] 2.1 mmol/L 0.4-2.0 [facility] Comment on above: Critical Result(s) C alled at: 14:16:35 12/02/2023 by: Lili Ricardo. Results read back by same. Potassium [Moles/Vol] 3.8 mmol/L 3.5-5.1 [facility] Sodium [Moles/Vol] 134 mmol/L 136-145 [facility] Basophils/100 WBC (Bld) 0.2 % 0-1 [facility] Eosinophils/100 WBC (Bld) 0.5 % 0-5 [facility] Hemoglobin (Bld) [Mass/Vol] 12.3 g/dL 13.0-16.5 [facility] Monocytes/100 WBC (Bld) 4.1 % 0-10 [facility] Neutrophils (Bld) [#/Vol] 7.4 10*3/uL 2.0-7.7 [facility] Neutrophils/100 WBC (Bld) 83.1 % 47-70 [facility] WBC (Bld) [#/Vol] 8.9 10*3/uL 4.4-11.0 [facility] Bilirubin Test strip Ql (U)O rdered By: Antonio James on 12-02-2023 Bilirubin Ql (U) Negative Negative [facility] Culture, urineOrdered By: Jus James on 12-02-2023 Bacteria identified Cx Nom (U) Escherichia coli [facility] Determination of erythrocyte mean corpuscular volume (MCV)Ordered By: Antonio James on 12-02-2023 MCV (RBC) [Entitic vol] 95.2 fL 80-94 [facility] Erythrocyte distribution wid th ratioOrdered By: Antonio James on 12-02-2023 Erythrocyte distribution width (RBC) [Ratio] 15.0 % 11.6-14.6 [facility] Erythrocyte distribution wid th standard deviationOrdered By: Antonio James on 12-02-2023 Erythrocyte distribution width (RBC) [Entitic vol] 52.5 fL 35.1-43.9 [facility] Hematocrit Auto (Bld) [Volum e fraction]Ordered By: Antonio James on 12-02-2023 Hematocrit (Bld) [Volume fraction] 39.3 % 40-54 [facility] Immature granulocytes/100 WB C Auto (Bld)Ordered By: Antonio James on 12-02-2023 Immature granulocytes/100 WBC (Bld) 0.600 % 0.0-0.9 [facility] Comment on above: IG% - Immature Granu locytes (promyelocytes, myelocytes and metamyelocytes) > 1% indicates that a LEFT SHIFT is Present. Ketones Test strip Ql (U)Ord ered By: Antonio James on 12-02-2023 Ketones Ql (U) Negative Negative [facility] Laboratory - Chemistry and C hemistry - challengeOrdered By: Antonio James on 12-02-2023 CO2 [Moles/Vol] 29.0 mmol/L 21.0-32.0 [facility] Urea nitrogen/Creatinine [Mass ratio] 14.2 mg/mg 10-20 [facility] Laboratory - CoagulationOrde red By: Antonio James on 12-02-2023 INR Coag (Bld) [Relative time] 1.2 {INR} [facility] PT Coag (PPP) [Time] 15.1 s 11.7-14.9 [facility] Laboratory - Hematology and Cell countsOrdered By: Antonio James on 12-02-2023 MCH (RBC) [Entitic mass] 29.8 pg 27.0-32.0 [facility] MCHC (RBC) [Mass/Vol] 31.3 g/dL 32-36 [facility] Nucleated RBC/100 WBC (Bld) [Ratio] 0 % 0-5 [facility] Platelet mean volume (Bld) [Entitic vol] 11.4 fL 6.2-12.0 [facility] Platelets (Bld) [#/Vol] 125 10*3/uL 150-450 [facility] Laboratory - Microbiology an d Antimicrobial susceptibilityOrdered By: Antonio James on 12-02-2023 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 [facility] SARS-CoV-2 (COVID-19) RNA ANA+probe Ql (Unsp spec) [facility] Measurement, pHOrdered By: Maria Del Carmen James on 12-02-2023 pH (Unsp spec) 7.48 [pH] 7.35-7.45 [facility] Mucus LM Ql (Urine sed)Order ed By: Antonio James on 12-02-2023 Mucus Ql (Urine sed) 0 SEEN /hpf [facility] Nitrite Test strip Ql (U)Ord ered By: Antonio James on 12-02-2023 Nitrite Ql (U) Negative Negative [facility] No Panel InformationOrdered By: Antonio James on 12-02-2023 Troponin I High Sensitivity 829 pg/mL 3.0-78.0 [facility] Comment on above: Critical Result(s) C alled at: 17:02:54 12/02/2023 by: Ev Zaidi to [facility]. Results read back by same. Please Note: New Test Units and Gender Specific Reference Ranges. For more information see Policy Stat Procedure [place] High Sensitivity Troponin (TNIH) and attachments. Arterial Blood Partial Pressure CO2 33.1 mmHg 35-45 [facility] Arterial Blood Partial Pressure O2 62 mmHG 75-100 [facility] Blood Gas Bicarbonate Actual 24.6 mmol/L 22-26 [facility] Blood Gas Oxygen Percent 21.0 [facility] Blood Gas Sample Site R Radial [facility] Blood Gas Specimen Type ART [facility] Blood Gas Vent Mode Not entered [facility] Oxygen Delivery Device Room Air [facility] Urine RBC 0-5 SEEN /hpf 0-5 [facility] Estimated Creatinine Clearance Calc 63.01 ml/min [facility] Estimated GFR (MDRD) Amer 85 mL/min >60 [facility] Comment on above: GFR Calc Estimated GFR (MDRD) Non-Af Amer 70 mL/min >60 [facility] Comment on above: Non- GFR Calc Protein Test strip Ql (U)Ord ered By: Antonio James on 12-02-2023 Protein Ql (U) 15 mg/dl Negative [facility] RBC Auto (Bld) [#/Vol]Ordere d By: Antonio James on 12-02-2023 RBC (Bld) [#/Vol] 4.13 10*6/uL 4.6-6.2 [facility] Serum or plasma calcium tay urement (mass/volume)Ordered By: Antonio James on 12-02-2023 Calcium [Mass/Vol] 9.6 mg/dL 8.5-10.1 [facility] Serum or plasma cardiac trop onin I panel by high sensitivity methodOrdered By: Antonio James on 12-02-2023 Tropinin I.cardiac panel High sensitivity method 912 pg/mL 3.0-78.0 [facility] Comment on above: Critical Result(s) C alled at: 14:16:35 12/02/2023 by: Lili Tom to [facility]. Results read back by same. Please Note: New Test Units and Gender Specific Reference Ranges. For more information see Policy Stat Procedure [place] High Sensitivity Troponin (TNIH) and attachments. Serum or plasma creatinine m easurement (mass/volume)Ordered By: Antonio James on 12-02-2023 Creatinine [Mass/Vol] 1.06 mg/dL 0.70-1.30 [facility] Comment on above: The validity of the calculated GFR & GFRAA in patients over 70 years has not been determined. Clinical correlation is essential. Serum or plasma urea nitroge n measurement (mass/volume)Ordered By: Antonio James on 12-02-2023 Urea nitrogen [Mass/Vol] 15 mg/dL 7-18 [facility] Squamous epithelial cells de tection in urine sediment by light microscopyOrdered By: Antonio James on 12-02-2023 Epithelial cells.squamous LM Ql (Urine sed) 0 SEEN /hpf 0-5 [facility] Thin prep Papanicolaou smear with manual screeningOrdered By: Antonio James on 12-02-2023 Thin prep Papanicolaou smear with manual screening 5 5-15 [facility] Urine blood detectionOrdered By: Antonio James on 12-02-2023 RBC Ql (U) 50 /ul Negative [facility] Urine clarityOrdered By: Anastacia James on 12-02-2023 Clarity (U) Sl. Cloudy Clear [facility] Urine color determinationOrd ered By: Antonio James on 12-02-2023 Color (U) Yellow Yellow [facility] Urine glucose detectionOrder ed By: Antonio James on 12-02-2023 Glucose Ql (U) Normal mg/dl Normal [facility] Urine leukocyte esterase det ection by dipstickOrdered By: Antonio James on 12-02-2023 Leukocyte esterase Test strip Ql (U) 100 /ul Negative [facility] Urine pHOrdered By: Antonio blackburn on 12-02-2023 pH (U) 7.0 [pH] 5.0 - 8.0 [facility] Urine sediment bacteria coun t by microscopy (number/high power field)Ordered By: Antonio James on 12-02-2023 Bacteria LM.HPF (Urine sed) [#/Area] 1 /[HPF] None Seen [facility] Urine specific gravity measu rementOrdered By: Antonio James on 12-02-2023 Specific gravity (U) [Rel density] 1.010 1.002-1.030 [facility] Urine urobilinogen measureme ntOrdered By: Antonio James on 12-02-2023 Urobilinogen Ql (U) Normal mg/dl Normal [facility] Absolute lymphocyte countOrd ered By: Addi Mario on 08-15-2023 Lymphocytes Auto (Unsp spec) [#/Vol] 1.89 10*3/uL 0.83-4.51 [facility] Basophil percentageOrdered B y: Addi Mario on 08-15-2023 Basophils/100 WBC (Bld) 0.4 % 0-1 [facility] Bilirubin [Mass/Vol] 0.40 mg/dL 0.20-1.00 [facility] Comment on above: For patients on eltr ombopag therapy, use of Dimension [place] TBIL is not recommended. Chloride [Moles/Vol] 104 mmol/L 98-107 [facility] Eosinophils/100 WBC (Bld) 1.5 % 0-5 [facility] Glucose [Mass/Vol] 107 mg/dL 74-106 [facility] Comment on above: Fasting Glucose resu lt from 100 to 125 mg/dL suggests IMPAIRED HOMEOSTASIS per A.D.A. criteria. Neutrophils (Bld) [#/Vol] 4.6 10*3/uL 2.0-7.7 [facility] Neutrophils/100 WBC (Bld) 62.0 % 47-70 [facility] Potassium [Moles/Vol] 4.4 mmol/L 3.5-5.1 [facility] Protein [Mass/Vol] 7.4 g/dL 6.4-8.2 [facility] Sodium [Moles/Vol] 141 mmol/L 136-145 [facility] WBC (Bld) [#/Vol] 7.4 10*3/uL 4.4-11.0 [facility] Blood erythrocytes count (nu mber/volume)Ordered By: Addi Mario on 08-15-2023 RBC (Bld) [#/Vol] 3.96 10*6/uL 4.6-6.2 [facility] Blood hemoglobin measurement (mass/volume)Ordered By: Addi Mario on 08-15-2023 Hemoglobin (Bld) [Mass/Vol] 12.1 g/dL 13.0-16.5 [facility] Blood lymphocytes/100 leukoc ytesOrdered By: Addi Mario on 08-15-2023 Lymphocytes/100 WBC (Bld) 25.5 % 19-41 [facility] Blood monocytes/100 leukocyt esOrdered By: josh Mario on 08-15-2023 Monocytes/100 WBC (Bld) 10.3 % 0-10 [facility] Blood platelet mean volumeOr dered By: Addi Mario on 08-15-2023 Platelet mean volume (Bld) [Entitic vol] 11.0 fL 6.2-12.0 [facility] Determination of erythrocyte mean corpuscular volume (MCV)Ordered By: Addi Mario on 08-15-2023 MCV (RBC) [Entitic vol] 98.7 fL 80-94 [facility] Hematocrit Auto (Bld) [Volum e fraction]Ordered By: Addi Mario on 08-15-2023 Hematocrit (Bld) [Volume fraction] 39.1 % 40-54 [facility] Laboratory - Chemistry and C hemistry - challengeOrdered By: Addi Mario on 08-15-2023 ALP [Catalytic activity/Vol] 80 U/L 45-117 [facility] ALT [Catalytic activity/Vol] 24 U/L 16-61 [facility] CO2 [Moles/Vol] 33.0 mmol/L 21.0-32.0 [facility] Globulin (S) [Mass/Vol] 4.4 g/dL 2.2-4.2 [facility] Urea nitrogen/Creatinine [Mass ratio] 15.1 mg/mg 10-20 [facility] Laboratory - Hematology and Cell countsOrdered By: Addi Mario on 08-15-2023 Erythrocyte distribution width (RBC) [Entitic vol] 57.6 fL 35.1-43.9 [facility] Erythrocyte distribution width (RBC) [Ratio] 15.8 % 11.6-14.6 [facility] Immature granulocytes/100 WBC (Bld) 0.300 % 0.0-0.9 [facility] Comment on above: IG% - Immature Granu locytes (promyelocytes, myelocytes and metamyelocytes) > 1% indicates that a LEFT SHIFT is Present. MCH (RBC) [Entitic mass] 30.6 pg 27.0-32.0 [facility] Nucleated RBC/100 WBC (Bld) [Ratio] 0 % 0-5 [facility] MCHC Auto (RBC) [Mass/Vol]Or dered By: Addi Mario on 08-15-2023 MCHC (RBC) [Mass/Vol] 30.9 g/dL 32-36 [facility] No Panel InformationOrdered By: Addi Mario on 08-15-2023 Estimated GFR (MDRD) Amer 108 mL/min >60 [facility] Comment on above: GFR Calc Estimated GFR (MDRD) Non-Af Amer 90 mL/min >60 [facility] Comment on above: Non- GFR Calc Platelets bldOrdered By: Sonny Mario on 08-15-2023 Platelets (Bld) [#/Vol] 158 10*3/uL 150-450 [facility] Serum or plasma albumin tay urement (mass/volume)Ordered By: Addi Mario on 08-15-2023 Albumin [Mass/Vol] 3.0 g/dL 3.2-5.0 [facility] Serum or plasma albumin/glob ulin mass ratioOrdered By: Addi Mario on 08-15-2023 Albumin/Globulin [Mass ratio] 0.7 {ratio} 0.9-2.4 [facility] Serum or plasma calcium tay urement (mass/volume)Ordered By: Addi Mario on 08-15-2023 Calcium [Mass/Vol] 9.0 mg/dL 8.5-10.1 [facility] Serum or plasma creatinine m easurement (mass/volume)Ordered By: Addi Mario on 08-15-2023 Creatinine [Mass/Vol] 0.86 mg/dL 0.70-1.30 [facility] Comment on above: The validity of the calculated GFR & GFRAA in patients over 70 years has not been determined. Clinical correlation is essential. Serum or plasma urea nitroge n measurement (mass/volume)Ordered By: Addi Mario on 08-15-2023 Urea nitrogen [Mass/Vol] 13 mg/dL 7-18 [facility] Thin prep Papanicolaou smear with manual screeningOrdered By: Addi Mario on 08-15-2023 Thin prep Papanicolaou smear with manual screening 27 U/L 15-37 [facility] Thin prep Papanicolaou smear with manual screening 4 5-15 [facility] Influenza virus A and B and SARS-CoV-2 (COVID-19) Ag panel - Upper respiratory specimOrdered By: Marisol Crum on 04-22-2023 SARS-CoV-2 & FLU Antigen (Rapid) SARS-CoV-2 (COVID 19) [facility] Absolute lymphocyte countOrd ered By: Addi Mario on 03-23-2023 Lymphocytes Auto (Unsp spec) [#/Vol] 1.86 10*3/uL 0.83-4.51 [facility] Basophil percentageOrdered B y: Addi Mario on 03-23-2023 Basophils/100 WBC (Bld) 0.6 % 0-1 [facility] Bilirubin [Mass/Vol] 0.40 mg/dL 0.20-1.00 [facility] Comment on above: For patients on eltr ombopag therapy, use of Dimension [place] TBIL is not recommended. Eosinophils/100 WBC (Bld) 2.5 % 0-5 [facility] Neutrophils (Bld) [#/Vol] 3.6 10*3/uL 2.0-7.7 [facility] Neutrophils/100 WBC (Bld) 56.1 % 47-70 [facility] Protein [Mass/Vol] 7.5 g/dL 6.4-8.2 [facility] WBC (Bld) [#/Vol] 6.4 10*3/uL 4.4-11.0 [facility] Blood erythrocytes count (nu mber/volume)Ordered By: Addi Mario on 03-23-2023 RBC (Bld) [#/Vol] 3.82 10*6/uL 4.6-6.2 [facility] Blood hemoglobin measurement (mass/volume)Ordered By: Addi Mario on 03-23-2023 Hemoglobin (Bld) [Mass/Vol] 11.7 g/dL 13.0-16.5 [facility] Blood lymphocytes/100 leukoc ytesOrdered By: Addi Mario on 03-23-2023 Lymphocytes/100 WBC (Bld) 29.1 % 19-41 [facility] Blood monocytes/100 leukocyt esOrdered By: Addi Mario on 03-23-2023 Monocytes/100 WBC (Bld) 11.4 % 0-10 [facility] Blood platelet mean volumeOr dered By: Addi Mario on 03-23-2023 Platelet mean volume (Bld) [Entitic vol] 11.5 fL 6.2-12.0 [facility] Determination of erythrocyte mean corpuscular volume (MCV)Ordered By: Addi Mario on 03-23-2023 MCV (RBC) [Entitic vol] 98.7 fL 80-94 [facility] Direct bilirubinOrdered By: Addi Mario on 03-23-2023 Bilirubin.direct [Mass/Vol] 0.13 mg/dL 0.00-0.30 [facility] Hematocrit Auto (Bld) [Volum e fraction]Ordered By: Addi Mario on 03-23-2023 Hematocrit (Bld) [Volume fraction] 37.7 % 40-54 [facility] INR in Blood by Coagulation assayOrdered By: Addi Mario on 03-23-2023 INR Coag (Bld) [Relative time] 1.1 {INR} [facility] Laboratory - Chemistry and C hemistry - challengeOrdered By: Addi Mario on 03-23-2023 ALP [Catalytic activity/Vol] 85 U/L 45-117 [facility] ALT [Catalytic activity/Vol] 21 U/L 16-61 [facility] Cobalamin (Vitamin B12) [Mass/Vol] 623 pg/mL 211-911 [facility] Globulin (S) [Mass/Vol] 4.4 g/dL 2.2-4.2 [facility] Laboratory - CoagulationOrde red By: Addi Mario on 03-23-2023 aPTT Coag (Bld) [Time] 33.5 s 24.1-36.2 [facility] PT Coag (PPP) [Time] 14.5 s 11.7-14.9 [facility] Laboratory - Hematology and Cell countsOrdered By: Addi Mario on 03-23-2023 Erythrocyte distribution width (RBC) [Entitic vol] 54.5 fL 35.1-43.9 [facility] Erythrocyte distribution width (RBC) [Ratio] 15.0 % 11.6-14.6 [facility] Immature granulocytes/100 WBC (Bld) 0.300 % 0.0-0.9 [facility] Comment on above: IG% - Immature Granu locytes (promyelocytes, myelocytes and metamyelocytes) > 1% indicates that a LEFT SHIFT is Present. MCH (RBC) [Entitic mass] 30.6 pg 27.0-32.0 [facility] Nucleated RBC/100 WBC (Bld) [Ratio] 0 % 0-5 [facility] MCHC Auto (RBC) [Mass/Vol]Or dered By: Addi Mario on 03-23-2023 MCHC (RBC) [Mass/Vol] 31.0 g/dL 32-36 [facility] Platelets bldOrdered By: Sonny Mario on 03-23-2023 Platelets (Bld) [#/Vol] 148 10*3/uL 150-450 [facility] Serum or plasma albumin tay urement (mass/volume)Ordered By: Addi Mario on 03-23-2023 Albumin [Mass/Vol] 3.1 g/dL 3.2-5.0 [facility] Thin prep Papanicolaou smear with manual screeningOrdered By: Addi Mario on 03-23-2023 Thin prep Papanicolaou smear with manual screening 31 U/L 15-37 [facility] Absolute lymphocyte countOrd ered By: Dr. Ferrera on 03-12-2023 Lymphocytes Auto (Unsp spec) [#/Vol] 2.23 10*3/uL 0.83-4.51 [facility] Basophil percentageOrdered B y: Dr. Ferrera on 03-12-2023 Basophils/100 WBC (Bld) 0.6 % 0-1 [facility] Chloride [Moles/Vol] 104 mmol/L 98-107 [facility] Eosinophils/100 WBC (Bld) 3.2 % 0-5 [facility] Glucose [Mass/Vol] 88 mg/dL 74-106 [facility] Neutrophils (Bld) [#/Vol] 3.6 10*3/uL 2.0-7.7 [facility] Neutrophils/100 WBC (Bld) 51.9 % 47-70 [facility] Potassium [Moles/Vol] 4.1 mmol/L 3.5-5.1 [facility] Sodium [Moles/Vol] 137 mmol/L 136-145 [facility] WBC (Bld) [#/Vol] 6.9 10*3/uL 4.4-11.0 [facility] Blood erythrocytes count (nu mber/volume)Ordered By: Dr. Ferrera on 03-12-2023 RBC (Bld) [#/Vol] 3.86 10*6/uL 4.6-6.2 [facility] Blood hemoglobin measurement (mass/volume)Ordered By: Dr. Ferrera on 03-12-2023 Hemoglobin (Bld) [Mass/Vol] 11.9 g/dL 13.0-16.5 [facility] Blood lymphocytes/100 leukoc ytesOrdered By: Dr. Ferrera on 06-24-2023 Lymphocytes/100 WBC (Bld) 32.4 % 19-41 [facility] Blood monocytes/100 leukocyt esOrdered By: Dr. Ferrera on 03-12-2023 Monocytes/100 WBC (Bld) 11.6 % 0-10 [facility] Blood platelet mean volumeOr dered By: Dr. Ferrera on 03-12-2023 Platelet mean volume (Bld) [Entitic vol] 11.0 fL 6.2-12.0 [facility] Determination of erythrocyte mean corpuscular volume (MCV)Ordered By: Dr. Ferrera on 03-12-2023 MCV (RBC) [Entitic vol] 97.4 fL 80-94 [facility] Hematocrit Auto (Bld) [Volum e fraction]Ordered By: Dr. Ferrera on 03-12-2023 Hematocrit (Bld) [Volume fraction] 37.6 % 40-54 [facility] Laboratory - Chemistry and C hemistry - challengeOrdered By: Dr. Ferrera on 03-12-2023 CO2 [Moles/Vol] 30.0 mmol/L 21.0-32.0 [facility] Urea nitrogen/Creatinine [Mass ratio] 21.5 mg/mg 10-20 [facility] Laboratory - Hematology and Cell countsOrdered By: Dr. Ferrera on 03-12-2023 Erythrocyte distribution width (RBC) [Entitic vol] 54.1 fL 35.1-43.9 [facility] Erythrocyte distribution width (RBC) [Ratio] 15.1 % 11.6-14.6 [facility] Immature granulocytes/100 WBC (Bld) 0.300 % 0.0-0.9 [facility] Comment on above: IG% - Immature Granu locytes (promyelocytes, myelocytes and metamyelocytes) > 1% indicates that a LEFT SHIFT is Present. MCH (RBC) [Entitic mass] 30.8 pg 27.0-32.0 [facility] Nucleated RBC/100 WBC (Bld) [Ratio] 0 % 0-5 [facility] MCHC Auto (RBC) [Mass/Vol]Or dered By: Dr. Ferrera on 03-12-2023 MCHC (RBC) [Mass/Vol] 31.6 g/dL 32-36 [facility] No Panel InformationOrdered By: Dr. Ferrera on 03-12-2023 Troponin I High Sensitivity 407 pg/mL 3.0-78.0 [facility] Comment on above: Critical Result(s) C alled at: 14:27:56 03/12/2023 by: Lili Dailey. Results read back by same. Please Note: New Test Units and Gender Specific Reference Ranges. For more information see Policy Stat Procedure [place] High Sensitivity Troponin (TNIH) and attachments. Estimated Creatinine Clearance Calc 58.20 ml/min [facility] Estimated GFR (MDRD) Amer 138 mL/min >60 [facility] Comment on above: GFR Calc Estimated GFR (MDRD) Non-Af Amer 114 mL/min >60 [facility] Comment on above: Non- GFR Calc Platelets bldOrdered By: Dr. Ferrera on 03-12-2023 Platelets (Bld) [#/Vol] 141 10*3/uL 150-450 [facility] Serum or plasma calcium tay urement (mass/volume)Ordered By: Dr. Ferrera on 03-12-2023 Calcium [Mass/Vol] 9.6 mg/dL 8.5-10.1 [facility] Serum or plasma creatinine m easurement (mass/volume)Ordered By: Dr. Ferrera on 03-12-2023 Creatinine [Mass/Vol] 0.70 mg/dL 0.70-1.30 [facility] Comment on above: The validity of the calculated GFR & GFRAA in patients over 70 years has not been determined. Clinical correlation is essential. Serum or plasma urea nitroge n measurement (mass/volume)Ordered By: Dr. Ferrera on 03-12-2023 Urea nitrogen [Mass/Vol] 15 mg/dL 7-18 [facility] Thin prep Papanicolaou smear with manual screeningOrdered By: Dr. Ferrera on 03-12-2023 Thin prep Papanicolaou smear with manual screening 3 5-15 [facility] Stool gastrointestinal hemog lobin detection by immunologic methodOrdered By: Dr. Mario on 09-08-2022 Lower GI hemoglobin IA Ql (Stl) [facility] Absolute lymphocyte countOrd ered By: Dr. Mario on 09-04-2022 Lymphocytes Auto (Unsp spec) [#/Vol] 1.91 10*3/uL 0.83-4.51 [facility] Basophil percentageOrdered B y: Dr. Mario on 09-04-2022 Basophils/100 WBC (Bld) 0.5 % 0-1 [facility] Eosinophils/100 WBC (Bld) 3.3 % 0-5 [facility] Neutrophils (Bld) [#/Vol] 3.1 10*3/uL 2.0-7.7 [facility] Neutrophils/100 WBC (Bld) 52.2 % 47-70 [facility] WBC (Bld) [#/Vol] 6.0 10*3/uL 4.4-11.0 [facility] Blood erythrocytes count (nu mber/volume)Ordered By: Dr. Mario on 09-04-2022 RBC (Bld) [#/Vol] 4.08 10*6/uL 4.6-6.2 [facility] Blood hemoglobin measurement (mass/volume)Ordered By: Dr. Mario on 09-04-2022 Hemoglobin (Bld) [Mass/Vol] 12.5 g/dL 13.0-16.5 [facility] Blood lymphocytes/100 leukoc ytesOrdered By: Dr. Mario on 09-04-2022 Lymphocytes/100 WBC (Bld) 31.9 % 19-41 [facility] Blood monocytes/100 leukocyt esOrdered By: Dr. Mario on 09-04-2022 Monocytes/100 WBC (Bld) 11.9 % 0-10 [facility] Blood platelet mean volumeOr dered By: Dr. Mario on 09-04-2022 Platelet mean volume (Bld) [Entitic vol] 11.1 fL 6.2-12.0 [facility] Determination of erythrocyte mean corpuscular volume (MCV)Ordered By: Dr. Mario on 09-04-2022 MCV (RBC) [Entitic vol] 99.8 fL 80-94 [facility] Hematocrit Auto (Bld) [Volum e fraction]Ordered By: Dr. Mario on 09-04-2022 Hematocrit (Bld) [Volume fraction] 40.7 % 40-54 [facility] Laboratory - Hematology and Cell countsOrdered By: Dr. Mario on 09-04-2022 Erythrocyte distribution width (RBC) [Entitic vol] 52.1 fL 35.1-43.9 [facility] Erythrocyte distribution width (RBC) [Ratio] 14.2 % 11.6-14.6 [facility] Immature granulocytes/100 WBC (Bld) 0.200 % 0.0-0.9 [facility] Comment on above: IG% - Immature Granu locytes (promyelocytes, myelocytes and metamyelocytes) > 1% indicates that a LEFT SHIFT is Present. MCH (RBC) [Entitic mass] 30.6 pg 27.0-32.0 [facility] Nucleated RBC/100 WBC (Bld) [Ratio] 0 % 0-5 [facility] MCHC Auto (RBC) [Mass/Vol]Or dered By: Dr. Mario on 09-04-2022 MCHC (RBC) [Mass/Vol] 30.7 g/dL 32-36 [facility] Platelets bldOrdered By: Dr. Mario on 09-04-2022 Platelets (Bld) [#/Vol] 146 10*3/uL 150-450 [facility] Serum or plasma folate measu rement (mass/volume)Ordered By: Dr. Mario on 09-04-2022 Folate [Mass/Vol] 77.60 ng/mL 3.1-55.4 [facility] Absolute lymphocyte countOrd ered By: Dr. Peña on 08-24-2022 Lymphocytes Auto (Unsp spec) [#/Vol] 1.66 10*3/uL 0.83-4.51 [facility] Basophil percentageOrdered B y: Dr. Peña on 08-24-2022 Basophils/100 WBC (Bld) 0.3 % 0-1 [facility] Chloride [Moles/Vol] 107 mmol/L 98-107 [facility] Eosinophils/100 WBC (Bld) 3.8 % 0-5 [facility] Glucose [Mass/Vol] 103 mg/dL 74-106 [facility] Comment on above: Fasting Glucose resu lt from 100 to 125 mg/dL suggests IMPAIRED HOMEOSTASIS per A.D.A. criteria. Neutrophils (Bld) [#/Vol] 3.3 10*3/uL 2.0-7.7 [facility] Neutrophils/100 WBC (Bld) 54.8 % 47-70 [facility] Potassium [Moles/Vol] 4.0 mmol/L 3.5-5.1 [facility] Sodium [Moles/Vol] 140 mmol/L 136-145 [facility] WBC (Bld) [#/Vol] 6.0 10*3/uL 4.4-11.0 [facility] Blood erythrocytes count (nu mber/volume)Ordered By: Dr. Peña on 08-24-2022 RBC (Bld) [#/Vol] 4.00 10*6/uL 4.6-6.2 [facility] Blood hemoglobin measurement (mass/volume)Ordered By: Dr. Peña on 08-24-2022 Hemoglobin (Bld) [Mass/Vol] 12.5 g/dL 13.0-16.5 [facility] Blood lymphocytes/100 leukoc ytesOrdered By: Dr. Peña on 08-24-2022 Lymphocytes/100 WBC (Bld) 27.5 % 19-41 [facility] Blood monocytes/100 leukocyt esOrdered By: Dr. Peña on 08-24-2022 Monocytes/100 WBC (Bld) 13.4 % 0-10 [facility] Blood platelet mean volumeOr dered By: Dr. Peña on 08-24-2022 Platelet mean volume (Bld) [Entitic vol] 10.4 fL 6.2-12.0 [facility] Determination of erythrocyte mean corpuscular volume (MCV)Ordered By: Dr. Peña on 08-24-2022 MCV (RBC) [Entitic vol] 97.8 fL 80-94 [facility] Hematocrit Auto (Bld) [Volum e fraction]Ordered By: Dr. Peña on 08-24-2022 Hematocrit (Bld) [Volume fraction] 39.1 % 40-54 [facility] INR in Blood by Coagulation assayOrdered By: Dr. Peña on 08-24-2022 INR Coag (Bld) [Relative time] 1.1 {INR} [facility] Laboratory - Chemistry and C hemistry - challengeOrdered By: Dr. Peña on 08-24-2022 CO2 [Moles/Vol] 31.0 mmol/L 21.0-32.0 [facility] Urea nitrogen/Creatinine [Mass ratio] 21.3 mg/mg 10-20 [facility] Laboratory - CoagulationOrde red By: Dr. Peña on 08-24-2022 aPTT Coag (Bld) [Time] 31.1 s 24.1-36.2 [facility] PT Coag (PPP) [Time] 14.0 s 11.7-14.9 [facility] Laboratory - Hematology and Cell countsOrdered By: Dr. Peña on 08-24-2022 Erythrocyte distribution width (RBC) [Entitic vol] 51.5 fL 35.1-43.9 [facility] Erythrocyte distribution width (RBC) [Ratio] 14.2 % 11.6-14.6 [facility] Immature granulocytes/100 WBC (Bld) 0.200 % 0.0-0.9 [facility] Comment on above: IG% - Immature Granu locytes (promyelocytes, myelocytes and metamyelocytes) > 1% indicates that a LEFT SHIFT is Present. MCH (RBC) [Entitic mass] 31.3 pg 27.0-32.0 [facility] Nucleated RBC/100 WBC (Bld) [Ratio] 0 % 0-5 [facility] MCHC Auto (RBC) [Mass/Vol]Or dered By: Dr. Peña on 08-24-2022 MCHC (RBC) [Mass/Vol] 32.0 g/dL 32-36 [facility] No Panel InformationOrdered By: Dr. Peña on 08-24-2022 Estimated Creatinine Clearance Calc 59.28 ml/min [facility] Estimated GFR (MDRD) Amer 137 mL/min >60 [facility] Comment on above: GFR Calc Estimated GFR (MDRD) Non-Af Amer 113 mL/min >60 [facility] Comment on above: Non- GFR Calc Platelets bldOrdered By: Dr. Peña on 08-24-2022 Platelets (Bld) [#/Vol] 115 10*3/uL 150-450 [facility] Serum or plasma calcium tay urement (mass/volume)Ordered By: Dr. Peña on 08-24-2022 Calcium [Mass/Vol] 9.2 mg/dL 8.5-10.1 [facility] Serum or plasma creatinine m easurement (mass/volume)Ordered By: Dr. Peña on 08-24-2022 Creatinine [Mass/Vol] 0.70 mg/dL 0.70-1.30 [facility] Comment on above: The validity of the calculated GFR & GFRAA in patients over 70 years has not been determined. Clinical correlation is essential. Serum or plasma urea nitroge n measurement (mass/volume)Ordered By: Dr. Peña on 08-24-2022 Urea nitrogen [Mass/Vol] 15 mg/dL 7-18 [facility] Thin prep Papanicolaou smear with manual screeningOrdered By: Dr. Peña on 08-24-2022 Thin prep Papanicolaou smear with manual screening 2 5-15 [facility] Absolute lymphocyte countOrd ered By: Dr. Mario on 08-04-2022 Lymphocytes Auto (Unsp spec) [#/Vol] 2.10 10*3/uL 0.83-4.51 [facility] Basophil percentageOrdered B y: Dr. Mario on 08-04-2022 Basophils/100 WBC (Bld) 0.6 % 0-1 [facility] Bilirubin [Mass/Vol] 0.40 mg/dL 0.20-1.00 [facility] Comment on above: For patients on eltr ombopag therapy, use of Dimension [place] TBIL is not recommended. Chloride [Moles/Vol] 104 mmol/L 98-107 [facility] Cholesterol [Mass/Vol] 116 mg/dL <200 [facility] Comment on above: <200 mg/dL Desirable 200-240 mg/dL Borderline >240 mg/dL High Risk Eosinophils/100 WBC (Bld) 3.6 % 0-5 [facility] Glucose [Mass/Vol] 89 mg/dL 74-106 [facility] Neutrophils (Bld) [#/Vol] 3.8 10*3/uL 2.0-7.7 [facility] Neutrophils/100 WBC (Bld) 54.5 % 47-70 [facility] Potassium [Moles/Vol] 4.5 mmol/L 3.5-5.1 [facility] Comment on above: Moderate Hemolysis, Result may be falsely increased. Protein [Mass/Vol] 7.4 g/dL 6.4-8.2 [facility] Sodium [Moles/Vol] 139 mmol/L 136-145 [facility] Triglyceride [Mass/Vol] 106 mg/dL <199 [facility] Comment on above: The drugs N-Acetylcy steine and Metamizole may falsely depress this assay.Serum Triglycerides Reference Interval Normal <150 mg/dL Borderline high 150 - 199 mg/dL High 200 - 499 mg/dL Very High > or = 500 mg/dL WBC (Bld) [#/Vol] 6.9 10*3/uL 4.4-11.0 [facility] Blood erythrocytes count (nu mber/volume)Ordered By: Dr. Mario on 08-04-2022 RBC (Bld) [#/Vol] 4.09 10*6/uL 4.6-6.2 [facility] Blood hemoglobin measurement (mass/volume)Ordered By: Dr. Mario on 08-04-2022 Hemoglobin (Bld) [Mass/Vol] 12.8 g/dL 13.0-16.5 [facility] Blood lymphocytes/100 leukoc ytesOrdered By: Dr. Mario on 08-04-2022 Lymphocytes/100 WBC (Bld) 30.3 % 19-41 [facility] Blood monocytes/100 leukocyt esOrdered By: Dr. Mario on 08-04-2022 Monocytes/100 WBC (Bld) 10.7 % 0-10 [facility] Blood platelet mean volumeOr dered By: Dr. Mario on 08-04-2022 Platelet mean volume (Bld) [Entitic vol] 11.4 fL 6.2-12.0 [facility] Determination of erythrocyte mean corpuscular volume (MCV)Ordered By: Dr. Mario on 08-04-2022 MCV (RBC) [Entitic vol] 100.0 fL 80-94 [facility] Hematocrit Auto (Bld) [Volum e fraction]Ordered By: Dr. Mario on 08-04-2022 Hematocrit (Bld) [Volume fraction] 40.9 % 40-54 [facility] Laboratory - Chemistry and C hemistry - challengeOrdered By: Dr. Mario on 08-04-2022 ALP [Catalytic activity/Vol] 73 U/L 45-117 [facility] ALT [Catalytic activity/Vol] 25 U/L 16-61 [facility] CO2 [Moles/Vol] 32.0 mmol/L 21.0-32.0 [facility] Globulin (S) [Mass/Vol] 4.3 g/dL 2.2-4.2 [facility] Urea nitrogen/Creatinine [Mass ratio] 18.2 mg/mg 10-20 [facility] Laboratory - Hematology and Cell countsOrdered By: Dr. Mario on 08-04-2022 Erythrocyte distribution width (RBC) [Entitic vol] 52.4 fL 35.1-43.9 [facility] Erythrocyte distribution width (RBC) [Ratio] 14.2 % 11.6-14.6 [facility] Immature granulocytes/100 WBC (Bld) 0.300 % 0.0-0.9 [facility] Comment on above: IG% - Immature Granu locytes (promyelocytes, myelocytes and metamyelocytes) > 1% indicates that a LEFT SHIFT is Present. MCH (RBC) [Entitic mass] 31.3 pg 27.0-32.0 [facility] Nucleated RBC/100 WBC (Bld) [Ratio] 0 % 0-5 [facility] MCHC Auto (RBC) [Mass/Vol]Or dered By: Dr. Mario on 08-04-2022 MCHC (RBC) [Mass/Vol] 31.3 g/dL 32-36 [facility] No Panel InformationOrdered By: Dr. Mario on 08-04-2022 Estimated GFR (MDRD) Amer 123 mL/min >60 [facility] Comment on above: GFR Calc Estimated GFR (MDRD) Non-Af Amer 102 mL/min >60 [facility] Comment on above: Non- GFR Calc Platelets bldOrdered By: Dr. Mario on 08-04-2022 Platelets (Bld) [#/Vol] 135 10*3/uL 150-450 [facility] Serum or plasma albumin tay urement (mass/volume)Ordered By: Dr. Mario on 08-04-2022 Albumin [Mass/Vol] 3.1 g/dL 3.2-5.0 [facility] Serum or plasma albumin/glob ulin mass ratioOrdered By: Dr. Mario on 08-04-2022 Albumin/Globulin [Mass ratio] 0.7 {ratio} 0.9-2.4 [facility] Serum or plasma calcium tay urement (mass/volume)Ordered By: Dr. Mario on 08-04-2022 Calcium [Mass/Vol] 8.9 mg/dL 8.5-10.1 [facility] Serum or plasma cholesterol in HDL measurement (mass/volume)Ordered By: Dr. Mario on 08-04-2022 Cholesterol in HDL [Mass/Vol] 50 mg/dL >40 [facility] Comment on above: The drugs N-Acetylcy steine and Metamizole may falsely depress this assay. Reference Range HDL <40 mg/dL Low HDL Cholesterol HDL >or= 60 mg/dL High HDL Cholesterol Serum or plasma cholesterol in VLDL measurement (mass/volume)Ordered By: Dr. Mario on 08-04-2022 Cholesterol in VLDL [Mass/Vol] 21 mg/dL 5-40 [facility] Serum or plasma creatinine m easurement (mass/volume)Ordered By: Dr. Mario on 08-04-2022 Creatinine [Mass/Vol] 0.77 mg/dL 0.70-1.30 [facility] Comment on above: The validity of the calculated GFR & GFRAA in patients over 70 years has not been determined. Clinical correlation is essential. Serum or plasma low density lipoprotein (LDL) cholesterol measurement (mass/volume)Ordered By: Dr. Mario on 08-04-2022 Cholesterol in LDL [Mass/Vol] 45 mg/dL 0-130 [facility] Serum or plasma urea nitroge n measurement (mass/volume)Ordered By: Dr. Mario on 08-04-2022 Urea nitrogen [Mass/Vol] 14 mg/dL 7-18 [facility] Thin prep Papanicolaou smear with manual screeningOrdered By: Dr. Mario on 08-04-2022 Thin prep Papanicolaou smear with manual screening 33 U/L 15-37 [facility] Comment on above: Moderate Hemolysis, Result may be falsely increased. Thin prep Papanicolaou smear with manual screening 3 5-15 [facility] Absolute lymphocyte counton 03-17-2022 Lymphocytes Auto (Unsp spec) [#/Vol] 2.18 10*3/uL 0.83-4.51 [facility] Work Phone: [phone] Basophil percentageon 2021 Basophils/100 WBC (Bld) 0.4 % 0-1 [facility] Work Phone: [phone] Chloride [Moles/Vol] 104 mmol/L 98-107 [facility] Work Phone: [phone] Eosinophils/100 WBC (Bld) 0.9 % 0-5 [facility] Work Phone: [phone] Glucose [Mass/Vol] 100 mg/dL 74-106 [facility] Work Phone: [phone] Comment on above: Fasting Glucose resu lt from 100 to 125 mg/dL suggests IMPAIRED HOMEOSTASIS per A.D.A. criteria. Neutrophils (Bld) [#/Vol] 5.7 10*3/uL 2.0-7.7 [facility] Work Phone: [phone] Neutrophils/100 WBC (Bld) 63.0 % 47-70 [facility] Work Phone: [phone] Potassium [Moles/Vol] 4.6 mmol/L 3.5-5.1 [facility] Work Phone: [phone] Sodium [Moles/Vol] 139 mmol/L 136-145 [facility] Work Phone: [phone] WBC (Bld) [#/Vol] 9.0 10*3/uL 4.4-11.0 [facility] Work Phone: [phone] Blood erythrocytes count (nu mber/volume)on 12-03-2021 RBC (Bld) [#/Vol] 4.62 10*6/uL 4.6-6.2 [facility] Work Phone: [phone] Blood hemoglobin measurement (mass/volume)on 12-03-2021 Hemoglobin (Bld) [Mass/Vol] 14.7 g/dL 13.0-16.5 [facility] Work Phone: [phone] Blood lymphocytes/100 leukoc yteson 12-03-2021 Lymphocytes/100 WBC (Bld) 24.2 % 19-41 [facility] Work Phone: Blood monocytes/100 leukocyt eson 12-03-2021 Monocytes/100 WBC (Bld) 11.1 % 0-10 [facility] Work Phone: Blood platelet mean volumeon 12-03-2021 Platelet mean volume (Bld) [Entitic vol] 11.0 fL 6.2-12.0 [facility] Work Phone: Determination of erythrocyte mean corpuscular volume (MCV)on 12-03-2021 MCV (RBC) [Entitic vol] 96.3 fL 80-94 [facility] Work Phone: Hematocrit Auto (Bld) [Volum e fraction]on 12-03-2021 Hematocrit (Bld) [Volume fraction] 44.5 % 40-54 [facility] Work Phone: Laboratory - Chemistry and C hemistry - challengeon 12-03-2021 CO2 [Moles/Vol] 33.0 mmol/L 21.0-32.0 [facility] Work Phone: Magnesium [Mass/Vol] 2.4 mg/dL 1.6-2.6 [facility] Work Phone: Urea nitrogen/Creatinine [Mass ratio] 21.2 mg/mg 10-20 [facility] Work Phone: Laboratory - Hematology and Cell countson 12-03-2021 Erythrocyte distribution width (RBC) [Entitic vol] 49.6 fL 35.1-43.9 [facility] Work Phone: Erythrocyte distribution width (RBC) [Ratio] 14.1 % 11.6-14.6 [facility] Work Phone: Immature granulocytes/100 WBC (Bld) 0.400 % 0.0-0.9 [facility] Work Phone: Comment on above: IG% - Immature Granu locytes (promyelocytes, myelocytes and metamyelocytes) > 1% indicates that a LEFT SHIFT is Present. MCH (RBC) [Entitic mass] 31.8 pg 27.0-32.0 [facility] Work Phone: Nucleated RBC/100 WBC (Bld) [Ratio] 0 % 0-5 [facility] Work Phone: MCHC Auto (RBC) [Mass/Vol]on 12-03-2021 MCHC (RBC) [Mass/Vol] 33.0 g/dL 32-36 [facility] Work Phone: No Panel Informationon 12-03 Estimated GFR (MDRD) Amer 92 mL/min >60 [facility] Work Phone: Comment on above: GFR Calc Estimated GFR (MDRD) Non-Af Amer 76 mL/min >60 [facility] Work Phone: Comment on above: Non- GFR Calc Thyroid Stimulating Hormone (TSH) 2.10 uIU/mL 0.358-3.74 [facility] Work Phone: Platelets bldon 12-03-2021 Platelets (Bld) [#/Vol] 168 10*3/uL 150-450 [facility] Work Phone: Serum or plasma calcium tay urement (mass/volume)on 12-03-2021 Calcium [Mass/Vol] 9.4 mg/dL 8.5-10.1 [facility] Work Phone: Serum or plasma creatinine m easurement (mass/volume)on 12-03-2021 Creatinine [Mass/Vol] 0.99 mg/dL 0.70-1.30 [facility] Work Phone: Comment on above: The validity of the calculated GFR & GFRAA in patients over 70 years has not been determined. Clinical correlation is essential. Serum or plasma urea nitroge n measurement (mass/volume)on 12-03-2021 Urea nitrogen [Mass/Vol] 21 mg/dL 7-18 [facility] Work Phone: Thin prep Papanicolaou smear with manual screeningon 12-03-2021 Thin prep Papanicolaou smear with manual screening 2 - [facility] Work Phone: No Panel Information [facility] Stool gastrointestinal hemog lobin detection by immunologic method Lower GI hemoglobin IA Ql (Stl) [facility] Work Phone: Vital Signs Date Time Vital Sign Value Performing Clinician Faci lity 05-14-2025 14:16-0400 Body mass index (BMI) [Ratio] 30.35 kg/m2 Corina Nguyen MD Work Phone: [facility] 05-14-2025 14:16-0400 Body weight 101.52 kg Corina Nguyen MD Work Phone: [facility] 05-14-2025 14:16-0400 Diastolic blood pressure 84 mm[Hg] Corina Nguyen MD Work Phone: [facility] 05-14-2025 14:16-0400 Heart rate 52 /min Corina Nguyen MD Work Phone: [facility] 05-14-2025 14:16-0400 SaO2% (BldA) [Mass fraction] 95 % Corina Nguyen MD Work Phone: [facility] 05-14-2025 14:16-0400 Systolic blood pressure 161 mm[Hg] Corina Nguyen MD Work Phone: [facility] 05-08-2025 10:21-0400 Body height 182.[address] Addi Mario MD Work Phone: [facility] 05-08-2025 10:21-0400 Body mass index (BMI) [Ratio] 29.8 kg/m2 Dr. Addi Mario MD Work Phone: [facility] 05-08-2025 10:21-0400 Body temperature 96.3 [degF] Dr. Addi Mario MD Work Phone: [facility] 05-08-2025 10:21-0400 Body weight 99.[address] Addi Mario MD Work Phone: [facility] 05-08-2025 10:21-0400 Diastolic blood pressure 72 mm[Hg] Dr. Addi Mario MD Work Phone: [facility] 05-08-2025 10:21-0400 Heart rate 42 /min Dr. Addi Mario MD Work Phone: [facility] 05-08-2025 10:21-0400 Respiratory rate 18 /min Dr. Addi Mario MD Work Phone: [facility] 05-08-2025 10:21-0400 SaO2% (BldA) [Mass fraction] 95 % Dr. Addi Mario MD Work Phone: [facility] 05-08-2025 10:21-0400 Systolic blood pressure 108 mm[Hg] Dr. Addi Mario MD Work Phone: [facility] 04-19-2025 13:54-0400 Body height 182.[address] Addi Mario MD Work Phone: [facility] 04-19-2025 13:54-0400 Body mass index (BMI) [Ratio] 30.9 kg/m2 Dr. Addi Mario MD Work Phone: [facility] 04-19-2025 13:54-0400 Body temperature 98.2 [degF] Dr. Addi Mario MD Work Phone: [facility] 04-19-2025 13:54-0400 Body weight 103.[address] Addi Mario MD Work Phone: [facility] 04-19-2025 13:54-0400 Diastolic blood pressure 62 mm[Hg] Dr. Addi Mario MD Work Phone: [facility] 04-19-2025 13:54-0400 Heart rate 63 /min Dr. Addi Mario MD Work Phone: [facility] 04-19-2025 13:54-0400 Respiratory rate 18 /min Dr. Addi Mario MD Work Phone: [facility] 04-19-2025 13:54-0400 SaO2% (BldA) [Mass fraction] 94 % Dr. Addi Mario MD Work Phone: [facility] 04-19-2025 13:54-0400 Systolic blood pressure 120 mm[Hg] Dr. Addi Mario MD Work Phone: [facility] 03-21-2025 10:57-0400 Body height 182.[address] Addi Mario MD Work Phone: [facility] 03-21-2025 10:57-0400 Body mass index (BMI) [Ratio] 30.5 kg/m2 Dr. Addi Mario MD Work Phone: [facility] 03-21-2025 10:57-0400 Body weight 102.[address] Addi Mario MD Work Phone: [facility] 03-21-2025 10:57-0400 Diastolic blood pressure 77 mm[Hg] Dr. Addi Mario MD Work Phone: [facility] 03-21-2025 10:57-0400 Heart rate 57 /min Dr. Addi Mario MD Work Phone: [facility] 03-21-2025 10:57-0400 Respiratory rate 18 /min Dr. Addi Mario MD Work Phone: [facility] 03-21-2025 10:57-0400 SaO2% (BldA) [Mass fraction] 94 % Dr. Addi Mario MD Work Phone: [facility] 03-21-2025 10:57-0400 Systolic blood pressure 158 mm[Hg] Dr. Addi Mario MD Work Phone: [facility] 03-17-2025 15:24-0400 Body temperature 98.3 [degF] Dr. Addi Mario MD Work Phone: [facility] 03-17-2025 15:24-0400 Diastolic blood pressure 82 mm[Hg] Dr. Addi Mario MD Work Phone: [facility] 03-17-2025 15:24-0400 Heart rate 62 /min Dr. Addi Mario MD Work Phone: [facility] 03-17-2025 15:24-0400 Respiratory rate 18 /min Dr. Addi Mario MD Work Phone: [facility] 03-17-2025 15:24-0400 SaO2% (BldA) [Mass fraction] 100 % Dr. Addi Mario MD Work Phone: [facility] 03-17-2025 15:24-0400 Systolic blood pressure 149 mm[Hg] Dr. Addi Mario MD Work Phone: [facility] 03-17-2025 13:53-0400 Body height 182.[address] Addi Mario MD Work Phone: [facility] 03-17-2025 13:53-0400 Body mass index (BMI) [Ratio] 29.5 kg/m2 Dr. Addi Mario MD Work Phone: [facility] 03-17-2025 13:53-0400 Body weight 98.[address] Addi Mario MD Work Phone: [facility] 03-17-2025 07:04-0400 Body temperature 98.2 [degF] Dr. Addi Mario MD Work Phone: [facility] 03-17-2025 07:04-0400 Diastolic blood pressure 69 mm[Hg] Dr. Addi Mario MD Work Phone: [facility] 03-17-2025 07:04-0400 Heart rate 56 /min Dr. Addi Mario MD Work Phone: [facility] 03-17-2025 07:04-0400 Respiratory rate 16 /min Dr. Addi Mario MD Work Phone: [facility] 03-17-2025 07:04-0400 SaO2% (BldA) [Mass fraction] 99 % Dr. Addi Mario MD Work Phone: [facility] 03-17-2025 07:04-0400 Systolic blood pressure 140 mm[Hg] Dr. Addi Mario MD Work Phone: [facility] 03-17-2025 05:41-0400 Body height 182.[address] Addi Mario MD Work Phone: [facility] 03-17-2025 05:41-0400 Body mass index (BMI) [Ratio] 30.6 kg/m2 Dr. Addi Mario MD Work Phone: [facility] 03-17-2025 05:41-0400 Body weight 102.[address] Addi Mario MD Work Phone: [facility] 03-10-2025 17:13-0400 Body temperature 97.9 [degF] Dr. Addi Mario MD Work Phone: [facility] 03-10-2025 17:13-0400 Diastolic blood pressure 76 mm[Hg] Dr. Addi Mario MD Work Phone: [facility] 03-10-2025 17:13-0400 Heart rate 63 /min Dr. Addi Mario MD Work Phone: [facility] 03-10-2025 17:13-0400 Respiratory rate 16 /min Dr. Addi Mario MD Work Phone: [facility] 03-10-2025 17:13-0400 SaO2% (BldA) [Mass fraction] 97 % Dr. Addi Mario MD Work Phone: [facility] 03-10-2025 17:13-0400 Systolic blood pressure 128 mm[Hg] Dr. Addi Mario MD Work Phone: [facility] 03-10-2025 16:23-0400 Body mass index (BMI) [Ratio] 30.9 kg/m2 Dr. Addi Mario MD Work Phone: [facility] 03-10-2025 16:23-0400 Body weight 103.[address] Addi Mario MD Work Phone: [facility] 03-10-2025 16:06-0400 Body height 182.[address] Addi Mario MD Work Phone: [facility] 02-19-2025 06:29-0400 Body height 182.[address] Addi Mario MD Work Phone: [facility] 02-19-2025 06:29-0400 Body mass index (BMI) [Ratio] 30.1 kg/m2 Dr. Addi Mario MD Work Phone: [facility] 02-19-2025 06:29-0400 Body weight 100.[address] Addi Mario MD Work Phone: [facility] 02-19-2025 06:29-0400 Diastolic blood pressure 80 mm[Hg] Dr. Addi Mario MD Work Phone: [facility] 02-19-2025 06:29-0400 Heart rate 78 /min Dr. Addi Mario MD Work Phone: [facility] 02-19-2025 06:29-0400 Respiratory rate 18 /min Dr. Addi Mario MD Work Phone: [facility] 02-19-2025 06:29-0400 SaO2% (BldA) [Mass fraction] 98 % Dr. Addi Mario MD Work Phone: [facility] 02-19-2025 06:29-0400 Systolic blood pressure 156 mm[Hg] Dr. Addi Mario MD Work Phone: [facility] 02-14-2025 14:27-0400 Body height 182.[address] Addi Mario MD Work Phone: [facility] 02-14-2025 14:27-0400 Body mass index (BMI) [Ratio] 30.1 kg/m2 Dr. Addi Mario MD Work Phone: [facility] 02-14-2025 14:27-0400 Body temperature 98 [degF] Dr. Addi Mario MD Work Phone: [facility] 02-14-2025 14:27-0400 Body weight 100.[address] Addi Mario MD Work Phone: [facility] 02-14-2025 14:27-0400 Diastolic blood pressure 78 mm[Hg] Dr. Addi Mario MD Work Phone: [facility] 02-14-2025 14:27-0400 Heart rate 60 /min Dr. Addi Mario MD Work Phone: [facility] 02-14-2025 14:27-0400 Respiratory rate 16 /min Dr. Addi Mario MD Work Phone: [facility] 02-14-2025 14:27-0400 SaO2% (BldA) [Mass fraction] 96 % Dr. Addi Mario MD Work Phone: [facility] 02-14-2025 14:27-0400 Systolic blood pressure 124 mm[Hg] Dr. Addi Mario MD Work Phone: [facility] 12-14-2024 08:21-0400 Body mass index (BMI) [Ratio] 29.7 kg/m2 Dr. Addi Mario MD Work Phone: [facility] 12-14-2024 08:21-0400 Body temperature 96.7 [degF] Dr. Addi Mario MD Work Phone: [facility] 12-14-2024 08:21-0400 Body weight 99.[address] Addi Mario MD Work Phone: [facility] 12-14-2024 08:21-0400 Diastolic blood pressure 74 mm[Hg] Dr. Addi Mario MD Work Phone: [facility] 12-14-2024 08:21-0400 Heart rate 59 /min Dr. Addi Mario MD Work Phone: [facility] 12-14-2024 08:21-0400 Respiratory rate 20 /min Dr. Addi Mario MD Work Phone: [facility] 12-14-2024 08:21-0400 SaO2% (BldA) [Mass fraction] 98 % Dr. Addi Mario MD Work Phone: [facility] 12-14-2024 08:21-0400 Systolic blood pressure 147 mm[Hg] Dr. Addi Mario MD Work Phone: [facility] 11-15-2024 15:09-0500 Body height 182.[address] Addi Mario MD Work Phone: [facility] 11-15-2024 15:09-0500 Body mass index (BMI) [Ratio] 29.7 kg/m2 Dr. Addi Mario MD Work Phone: [facility] 11-15-2024 15:09-0500 Body temperature 96.8 [degF] Dr. Addi Mario MD Work Phone: [facility] 11-15-2024 15:09-0500 Body weight 99.[address] Addi Mario MD Work Phone: [facility] 11-15-2024 15:09-0500 Diastolic blood pressure 60 mm[Hg] Dr. Addi Mario MD Work Phone: [facility] 11-15-2024 15:09-0500 Heart rate 60 /min Dr. Addi Mario MD Work Phone: [facility] 11-15-2024 15:09-0500 Respiratory rate 18 /min Dr. Addi Mario MD Work Phone: [facility] 11-15-2024 15:09-0500 SaO2% (BldA) [Mass fraction] 99 % Dr. Addi Mario MD Work Phone: [facility] 11-15-2024 15:09-0500 Systolic blood pressure 130 mm[Hg] Dr. Addi Mario MD Work Phone: [facility] 10-23-2024 13:58-0500 Body mass index (BMI) [Ratio] 29.5 kg/m2 Dr. Addi Mario MD Work Phone: [facility] 10-23-2024 13:58-0500 Body weight 98.[address] Addi Mario MD Work Phone: [facility] 10-23-2024 13:58-0500 Diastolic blood pressure 77 mm[Hg] Dr. Addi Mario MD Work Phone: [facility] 10-23-2024 13:58-0500 Heart rate 67 /min Dr. Addi Mario MD Work Phone: [facility] 10-23-2024 13:58-0500 Respiratory rate 18 /min Dr. dAdi Mario MD Work Phone: [facility] 10-23-2024 13:58-0500 SaO2% (BldA) [Mass fraction] 99 % Dr. Addi Mario MD Work Phone: [facility] 10-23-2024 13:58-0500 Systolic blood pressure 140 mm[Hg] Dr. Addi Mario MD Work Phone: [facility] 08-15-2024 14:31-0500 Body mass index (BMI) [Ratio] 29.7 kg/m2 Dr. Addi Mario MD Work Phone: [facility] 08-15-2024 14:31-0500 Body temperature 97.3 [degF] Dr. Addi Mario MD Work Phone: [facility] 08-15-2024 14:31-0500 Body weight 99.[address] Addi Mario MD Work Phone: [facility] 08-15-2024 14:31-0500 Diastolic blood pressure 78 mm[Hg] Dr. Addi Mario MD Work Phone: [facility] 08-15-2024 14:31-0500 Heart rate 66 /min Dr. Addi Mario MD Work Phone: [facility] 08-15-2024 14:31-0500 Respiratory rate 14 /min Dr. Addi Mario MD Work Phone: [facility] 08-15-2024 14:31-0500 SaO2% (BldA) [Mass fraction] 98 % Dr. Addi Mario MD Work Phone: [facility] 08-15-2024 14:31-0500 Systolic blood pressure 120 mm[Hg] Dr. Addi Mario MD Work Phone: [facility] 08-09-2024 13:23-0500 Body mass index (BMI) [Ratio] 29.4 kg/m2 Dr. Addi Mario MD Work Phone: [facility] 08-09-2024 13:23-0500 Body temperature 97.6 [degF] Dr. Addi Mario MD Work Phone: [facility] 08-09-2024 13:23-0500 Body weight 98.[address] Addi Mario MD Work Phone: [facility] 08-09-2024 13:23-0500 Diastolic blood pressure 64 mm[Hg] Dr. Addi Mario MD Work Phone: [facility] 08-09-2024 13:23-0500 Heart rate 52 /min Dr. Addi Mario MD Work Phone: [facility] 08-09-2024 13:23-0500 Respiratory rate 18 /min Dr. Addi Mario MD Work Phone: [facility] 08-09-2024 13:23-0500 SaO2% (BldA) [Mass fraction] 92 % Dr. Addi Mario MD Work Phone: [facility] 08-09-2024 13:23-0500 Systolic blood pressure 134 mm[Hg] Dr. Addi Mario MD Work Phone: [facility] 01-01-2024 09:53-0400 Body temperature 97.6 [degF] Dr. Addi Mario Work Phone: [facility] 01-01-2024 09:53-0400 Diastolic blood pressure 52 mm[Hg] Dr. Addi Mario Work Phone: [facility] 01-01-2024 09:53-0400 Heart rate 60 /min Dr. Addi Mario Work Phone: [facility] 01-01-2024 09:53-0400 Respiratory rate 17 /min Dr. Addi Mario Work Phone: [facility] 01-01-2024 09:53-0400 SaO2% (BldA) [Mass fraction] 98 % Dr. Addi Mario Work Phone: [facility] 01-01-2024 09:53-0400 Systolic blood pressure 103 mm[Hg] Dr. Addi Mario Work Phone: [facility] 12-28-2023 15:54-0400 Body height 182.[address] Addi Mario Work Phone: [facility] 12-28-2023 15:54-0400 Body weight 99.[address] Addi Mario Work Phone: [facility] 12-27-2023 13:00-0400 Body mass index (BMI) [Ratio] 29.7 kg/m2 Dr. Addi Mario Work Phone: [facility] 12-27-2023 10:02-0400 Diastolic blood pressure 68 mm[Hg] Dr. Addi Mario Work Phone: [facility] 12-27-2023 10:02-0400 Heart rate 66 /min Dr. Addi Mario Work Phone: [facility] 12-27-2023 10:02-0400 Systolic blood pressure 127 mm[Hg] Dr. Addi Mario Work Phone: [facility] 12-27-2023 08:54-0400 Body height 182.[address] Addi Mario Work Phone: [facility] 12-27-2023 08:54-0400 Body mass index (BMI) [Ratio] 29.8 kg/m2 Dr. Addi Mario Work Phone: [facility] 12-27-2023 08:54-0400 Body weight 99.[address] Addi Mario Work Phone: [facility] 12-27-2023 08:54-0400 Diastolic blood pressure 75 mm[Hg] Dr. Addi Mario Work Phone: [facility] 12-27-2023 08:54-0400 Heart rate 65 /min Dr. Addi Mario Work Phone: [facility] 12-27-2023 08:54-0400 Respiratory rate 18 /min Dr. Addi Mario Work Phone: [facility] 12-27-2023 08:54-0400 Systolic blood pressure 129 mm[Hg] Dr. Addi Mario Work Phone: [facility] 12-26-2023 14:11-0400 Body temperature 97.1 [degF] Dr. Addi Mario Work Phone: [facility] 12-26-2023 14:11-0400 Respiratory rate 14 /min Dr. Addi Mario Work Phone: [facility] 12-26-2023 14:11-0400 SaO2% (BldA) [Mass fraction] 98 % Dr. Addi Mario Work Phone: [facility] 12-21-2023 16:10-0400 Body temperature 97 [degF] Dr. Addi Mario Work Phone: [facility] 12-21-2023 16:10-0400 Diastolic blood pressure 60 mm[Hg] Dr. Addi aMrio Work Phone: [facility] 12-21-2023 16:10-0400 Heart rate 62 /min Dr. Addi Mario Work Phone: [facility] 12-21-2023 16:10-0400 Respiratory rate 16 /min Dr. Addi Mario Work Phone: [facility] 12-21-2023 16:10-0400 SaO2% (BldA) [Mass fraction] 97 % Dr. Addi Mario Work Phone: [facility] 12-21-2023 16:10-0400 Systolic blood pressure 148 mm[Hg] Dr. Addi Mario Work Phone: [facility] 12-21-2023 15:39-0400 Body weight 101.[address] Addi Mario Work Phone: [facility] 12-21-2023 14:26-0400 Body mass index (BMI) [Ratio] 31.7 kg/m2 Dr. Addi Mario Work Phone: [facility] 12-21-2023 14:26-0400 Body weight 106.[address] Addi Mario Work Phone: [facility] 12-20-2023 12:45-0400 Body mass index (BMI) [Ratio] 30.3 kg/m2 Dr. Addi Mario Work Phone: [facility] 12-08-2023 09:30-0400 Body temperature 97.7 [degF] Dr. Addi Mario Work Phone: [facility] 12-08-2023 09:30-0400 Diastolic blood pressure 80 mm[Hg] Dr. Addi Mario Work Phone: [facility] 12-08-2023 09:30-0400 Heart rate 68 /min Dr. Addi Mario Work Phone: [facility] 12-08-2023 09:30-0400 Respiratory rate 16 /min Dr. Addi Mario Work Phone: [facility] 12-08-2023 09:30-0400 SaO2% (BldA) [Mass fraction] 96 % Dr. Addi Mairo Work Phone: [facility] 12-08-2023 09:30-0400 Systolic blood pressure 119 mm[Hg] Dr. Addi Mario Work Phone: [facility] 12-08-2023 02:28-0400 Body mass index (BMI) [Ratio] 31 kg/m2 Dr. Addi Mario Work Phone: [facility] 12-08-2023 02:28-0400 Body weight 103.[address] Addi Mario Work Phone: [facility] 12-07-2023 08:20-0400 Body height 182.[address] Addi Mario Work Phone: [facility] 12-05-2023 20:07-0400 Inhaled oxygen flow rate 3 L/min Dr. Addi Mario Work Phone: [facility] 12-02-2023 16:45-0400 Body temperature 99.1 [degF] Dr. Addi Mario Work Phone: [facility] 12-02-2023 16:45-0400 Diastolic blood pressure 65 mm[Hg] Dr. Addi Mario Work Phone: [facility] 12-02-2023 16:45-0400 Heart rate 90 /min Dr. Addi Mario Work Phone: [facility] 12-02-2023 16:45-0400 Respiratory rate 26 /min Dr. Addi Mario Work Phone: [facility] 12-02-2023 16:45-0400 SaO2% (BldA) [Mass fraction] 94 % Dr. Addi Mario Work Phone: [facility] 12-02-2023 16:45-0400 Systolic blood pressure 129 mm[Hg] Dr. Addi Mario Work Phone: [facility] 12-02-2023 12:31-0400 Body height 182.[address] Addi Mario Work Phone: [facility] 12-02-2023 12:31-0400 Body mass index (BMI) [Ratio] 31.7 kg/m2 Dr. Addi Mario Work Phone: [facility] 12-02-2023 12:31-0400 Body weight 106.[address] Addi Mario Work Phone: [facility] 10-20-2023 09:47-0500 Body mass index (BMI) [Ratio] 31.3 kg/m2 Dr. Addi Mario Work Phone: [facility] 10-20-2023 09:47-0500 Body weight 104.[address] Addi Mario Work Phone: [facility] 10-20-2023 09:47-0500 Diastolic blood pressure 72 mm[Hg] Dr. Addi Mario Work Phone: [facility] 10-20-2023 09:47-0500 Heart rate 66 /min Dr. Addi Mario Work Phone: [facility] 10-20-2023 09:47-0500 Respiratory rate 18 /min Dr. Addi Mario Work Phone: [facility] 10-20-2023 09:47-0500 Systolic blood pressure 131 mm[Hg] Dr. Addi Mario Work Phone: [facility] 08-15-2023 14:47-0500 Body mass index (BMI) [Ratio] 31.4 kg/m2 Dr. Addi Mario Work Phone: [facility] 08-15-2023 14:47-0500 Body temperature 97.5 [degF] Dr. Addi Mario Work Phone: [facility] 08-15-2023 14:47-0500 Body weight [address] Addi Mario Work Phone: [facility] 08-15-2023 14:47-0500 Diastolic blood pressure 76 mm[Hg] Dr. Addi Mario Work Phone: [facility] 08-15-2023 14:47-0500 Heart rate 61 /min Dr. Addi Mario Work Phone: [facility] 08-15-2023 14:47-0500 Respiratory rate 18 /min Dr. Addi Mario Work Phone: [facility] 08-15-2023 14:47-0500 SaO2% (BldA) [Mass fraction] 99 % Dr. Addi Mario Work Phone: [facility] 08-15-2023 14:47-0500 Systolic blood pressure 128 mm[Hg] Dr. Addi Mario Work Phone: [facility] 04-28-2023 14:10-0400 Body height 182.[address] Addi Mario Work Phone: [facility] 04-28-2023 14:10-0400 Body mass index (BMI) [Ratio] 31.6 kg/m2 Dr. Addi Mario Work Phone: [facility] 04-28-2023 14:10-0400 Body temperature 97.4 [degF] Dr. Addi Mario Work Phone: [facility] 04-28-2023 14:10-0400 Body weight 105.[address] Addi Mario Work Phone: [facility] 04-28-2023 14:10-0400 Diastolic blood pressure 78 mm[Hg] Dr. Addi Mario Work Phone: [facility] 04-28-2023 14:10-0400 Heart rate 68 /min Dr. Addi Mario Work Phone: [facility] 04-28-2023 14:10-0400 Respiratory rate 18 /min Dr. Addi Mario Work Phone: [facility] 04-28-2023 14:10-0400 SaO2% (BldA) [Mass fraction] 94 % Dr. Addi Mario Work Phone: [facility] 04-28-2023 14:10-0400 Systolic blood pressure 132 mm[Hg] Dr. Addi Mario Work Phone: [facility] 04-22-2023 22:20-0400 Diastolic blood pressure 76 mm[Hg] Dr. Addi Mario Work Phone: [facility] 04-22-2023 22:20-0400 Heart rate 83 /min Dr. Addi Mario Work Phone: [facility] 04-22-2023 22:20-0400 Respiratory rate 14 /min Dr. Addi Mario Work Phone: [facility] 04-22-2023 22:20-0400 SaO2% (BldA) [Mass fraction] 97 % Dr. Addi Mario Work Phone: [facility] 04-22-2023 22:20-0400 Systolic blood pressure 145 mm[Hg] Dr. Addi Mario Work Phone: [facility] 04-22-2023 20:18-0400 Body height 182.[address] Addi Mario Work Phone: [facility] 04-22-2023 20:18-0400 Body mass index (BMI) [Ratio] 31.5 kg/m2 Dr. Addi Mario Work Phone: [facility] 04-22-2023 20:18-0400 Body temperature 98.6 [degF] Dr. Addi Mario Work Phone: [facility] 04-22-2023 20:18-0400 Body weight 105.[address] Addi Mario Work Phone: [facility] 04-12-2023 14:02-0400 Body mass index (BMI) [Ratio] 31.7 kg/m2 Dr. Addi Mario Work Phone: [facility] 04-12-2023 14:02-0400 Body weight 106.[address] Addi Mario Work Phone: [facility] 04-12-2023 14:02-0400 Diastolic blood pressure 75 mm[Hg] Dr. Addi Mario Work Phone: [facility] 04-12-2023 14:02-0400 Heart rate 64 /min Dr. Addi Mario Work Phone: [facility] 04-12-2023 14:02-0400 Respiratory rate 20 /min Dr. Addi Mario Work Phone: [facility] 04-12-2023 14:02-0400 SaO2% (BldA) [Mass fraction] 99 % Dr. Addi Mario Work Phone: [facility] 04-12-2023 14:02-0400 Systolic blood pressure 140 mm[Hg] Dr. Addi Mario Work Phone: [facility] 03-25-2023 13:24-0400 Respiratory rate 18 /min Dr. Addi Mario Work Phone: [facility] 03-25-2023 11:28-0400 Body mass index (BMI) [Ratio] 31.4 kg/m2 Dr. Addi Mario Work Phone: [facility] 03-25-2023 11:28-0400 Body temperature 98.2 [degF] Dr. Addi Mario Work Phone: [facility] 03-25-2023 11:28-0400 Body weight 105.[address] Addi Mario Work Phone: [facility] 03-25-2023 11:28-0400 Diastolic blood pressure 67 mm[Hg] Dr. Addi Mario Work Phone: [facility] 03-25-2023 11:28-0400 Heart rate 62 /min Dr. Addi Mario Work Phone: [facility] 03-25-2023 11:28-0400 SaO2% (BldA) [Mass fraction] 98 % Dr. Addi Mario Work Phone: [facility] 03-25-2023 11:28-0400 Systolic blood pressure 172 mm[Hg] Dr. Addi Mario Work Phone: [facility] 03-24-2023 16:41-0400 Body mass index (BMI) [Ratio] 31.7 kg/m2 Dr. Addi Mario Work Phone: [facility] 03-24-2023 16:41-0400 Body temperature 97.9 [degF] Dr. Addi Mario Work Phone: [facility] 03-24-2023 16:41-0400 Body weight 106.[address] Addi Mario Work Phone: [facility] 03-24-2023 16:41-0400 Diastolic blood pressure 84 mm[Hg] Dr. Addi Mario Work Phone: [facility] 03-24-2023 16:41-0400 Heart rate 62 /min Dr. Addi Mario Work Phone: [facility] 03-24-2023 16:41-0400 Respiratory rate 16 /min Dr. Addi Mario Work Phone: [facility] 03-24-2023 16:41-0400 SaO2% (BldA) [Mass fraction] 98 % Dr. Addi Mario Work Phone: [facility] 03-24-2023 16:41-0400 Systolic blood pressure 120 mm[Hg] Dr. Addi Mario Work Phone: [facility] 03-21-2023 23:06-0400 Respiratory rate 16 /min Dr. Addi Mario Work Phone: [facility] 03-21-2023 19:55-0400 Body height 182.[address] Addi Mario Work Phone: [facility] 03-21-2023 19:55-0400 Body mass index (BMI) [Ratio] 31.6 kg/m2 Dr. Addi Mairo Work Phone: [facility] 03-21-2023 19:55-0400 Body temperature 98 [degF] Dr. Addi Mario Work Phone: [facility] 03-21-2023 19:55-0400 Body weight 105.[address] Addi Mario Work Phone: [facility] 03-21-2023 19:55-0400 Diastolic blood pressure 65 mm[Hg] Dr. Addi Mario Work Phone: [facility] 03-21-2023 19:55-0400 Heart rate 54 /min Dr. Addi Mario Work Phone: [facility] 03-21-2023 19:55-0400 SaO2% (BldA) [Mass fraction] 97 % Dr. Addi Mario Work Phone: [facility] 03-21-2023 19:55-0400 Systolic blood pressure 167 mm[Hg] Dr. Addi Mario Work Phone: [facility] 03-12-2023 14:56-0400 Diastolic blood pressure 82 mm[Hg] Dr. Addi Mario Work Phone: [facility] 03-12-2023 14:56-0400 Heart rate 50 /min Dr. Addi Mario Work Phone: [facility] 03-12-2023 14:56-0400 Respiratory rate 14 /min Dr. Addi Mario Work Phone: [facility] 03-12-2023 14:56-0400 SaO2% (BldA) [Mass fraction] 99 % Dr. Addi Mario Work Phone: [facility] 03-12-2023 14:56-0400 Systolic blood pressure 131 mm[Hg] Dr. Addi Mario Work Phone: [facility] 03-12-2023 12:20-0400 Body height 182.[address] Addi Mario Work Phone: [facility] 03-12-2023 12:20-0400 Body mass index (BMI) [Ratio] 31.9 kg/m2 Dr. Addi Mario Work Phone: [facility] 03-12-2023 12:20-0400 Body temperature 96.8 [degF] Dr. Addi Mario Work Phone: [facility] 03-12-2023 12:20-0400 Body weight 106.[address] Addi Mario Work Phone: [facility] 01-22-2023 10:04-0400 Body height 182.[address] Addi Mario Work Phone: [facility] 01-22-2023 10:04-0400 Body mass index (BMI) [Ratio] 31.6 kg/m2 Dr. Addi Mario Work Phone: [facility] 01-22-2023 10:04-0400 Body temperature 97.6 [degF] Dr. Addi Mario Work Phone: [facility] 01-22-2023 10:04-0400 Body weight 105.[address] Addi Mario Work Phone: [facility] 01-22-2023 10:04-0400 Diastolic blood pressure 66 mm[Hg] Dr. Addi Mario Work Phone: [facility] 01-22-2023 10:04-0400 Heart rate 57 /min Dr. Addi Mario Work Phone: [facility] 01-22-2023 10:04-0400 Respiratory rate 18 /min Dr. Addi Mario Work Phone: [facility] 01-22-2023 10:04-0400 SaO2% (BldA) [Mass fraction] 97 % Dr. Addi Mario Work Phone: [facility] 01-22-2023 10:04-0400 Systolic blood pressure 141 mm[Hg] Dr. Addi Mario Work Phone: [facility] 12-29-2022 14:18-0400 Body mass index (BMI) [Ratio] 31.7 kg/m2 Dr. Addi Mario Work Phone: [facility] 12-29-2022 14:18-0400 Body temperature 97.9 [degF] Dr. Addi Mario Work Phone: [facility] 12-29-2022 14:18-0400 Body weight 106.[address] Addi Mario Work Phone: [facility] 12-29-2022 14:18-0400 Diastolic blood pressure 70 mm[Hg] Dr. Addi Mario Work Phone: [facility] 12-29-2022 14:18-0400 Heart rate 57 /min Dr. Addi Mario Work Phone: [facility] 12-29-2022 14:18-0400 Respiratory rate 12 /min Dr. Addi Mario Work Phone: [facility] 12-29-2022 14:18-0400 SaO2% (BldA) [Mass fraction] 97 % Dr. Addi Mario Work Phone: [facility] 12-29-2022 14:18-0400 Systolic blood pressure 138 mm[Hg] Dr. Addi Mario Work Phone: [facility] 11-03-2022 08:14-0500 Body mass index (BMI) [Ratio] 31.1 kg/m2 Dr. Addi Mario Work Phone: [facility] 11-03-2022 08:14-0500 Body temperature 97.2 [degF] Dr. Addi Mario Work Phone: [facility] 11-03-2022 08:14-0500 Body weight 104.[address] Addi Mario Work Phone: [facility] 11-03-2022 08:14-0500 Diastolic blood pressure 80 mm[Hg] Dr. Addi Mario Work Phone: [facility] 11-03-2022 08:14-0500 Heart rate 64 /min Dr. Addi Mario Work Phone: [facility] 11-03-2022 08:14-0500 Respiratory rate 18 /min Dr. Addi Mario Work Phone: [facility] 11-03-2022 08:14-0500 SaO2% (BldA) [Mass fraction] 97 % Dr. Addi Mario Work Phone: [facility] 11-03-2022 08:14-0500 Systolic blood pressure 157 mm[Hg] Dr. Addi Mario Work Phone: [facility] 10-05-2022 13:09-0500 Body height 182.[address] Addi Mario Work Phone: [facility] 10-05-2022 13:09-0500 Body mass index (BMI) [Ratio] 31.8 kg/m2 Dr. Addi Mario Work Phone: [facility] 10-05-2022 13:09-0500 Body weight 106.[address] Addi Mario Work Phone: [facility] 10-05-2022 13:09-0500 Diastolic blood pressure 80 mm[Hg] Dr. Addi Mario Work Phone: [facility] 10-05-2022 13:09-0500 Heart rate 56 /min Dr. Addi Mario Work Phone: [facility] 10-05-2022 13:09-0500 Respiratory rate 16 /min Dr. Addi Mario Work Phone: [facility] 10-05-2022 13:09-0500 Systolic blood pressure 153 mm[Hg] Dr. Addi Mario Work Phone: [facility] 09-08-2022 12:09-0500 Diastolic blood pressure 66 mm[Hg] Dr. Addi Mario Work Phone: [facility] 09-08-2022 12:09-0500 Heart rate 54 /min Dr. Addi Mario Work Phone: [facility] 09-08-2022 12:09-0500 Systolic blood pressure 116 mm[Hg] Dr. Addi Mario Work Phone: [facility] 08-27-2022 15:25-0500 Diastolic blood pressure 74 mm[Hg] Dr. dAdi Mario Work Phone: [facility] 08-27-2022 15:25-0500 Systolic blood pressure 142 mm[Hg] Dr. Addi Mario Work Phone: [facility] 08-27-2022 15:04-0500 Body height 182.[address] Addi Mario Work Phone: [facility] Work Phone: 08-27-2022 15:04-0500 Body mass index (BMI) [Ratio] 32.3 kg/m2 Dr. Addi Mario Work Phone: [facility] 08-27-2022 15:04-0500 Body temperature 96.3 [degF] Dr. Addi Mario Work Phone: [facility] 08-27-2022 15:04-0500 Body weight 107.[address] Addi Mario Work Phone: [facility] 08-27-2022 15:04-0500 Heart rate 55 /min Dr. Addi Mario Work Phone: [facility] 08-27-2022 15:04-0500 Respiratory rate 16 /min Dr. Addi Mario Work Phone: [facility] 08-27-2022 15:04-0500 SaO2% (BldA) [Mass fraction] 99 % Dr. Addi Mario Work Phone: [facility] 08-24-2022 08:12-0500 Diastolic blood pressure 70 mm[Hg] Dr. Addi Mario Work Phone: [facility] 08-24-2022 08:12-0500 Heart rate 56 /min Dr. Addi Mario Work Phone: [facility] 08-24-2022 08:12-0500 Respiratory rate 16 /min Dr. Addi Mario Work Phone: [facility] 08-24-2022 08:12-0500 SaO2% (BldA) [Mass fraction] 97 % Dr. Addi Mario Work Phone: [facility] 08-24-2022 08:12-0500 Systolic blood pressure 154 mm[Hg] Dr. Addi Mario Work Phone: [facility] 08-24-2022 06:09-0500 Body height 182.[address] Addi Mario Work Phone: [facility] Work Phone: 08-24-2022 06:09-0500 Body mass index (BMI) [Ratio] 32.8 kg/m2 Dr. Addi Mario Work Phone: [facility] 08-24-2022 06:09-0500 Body temperature 96.8 [degF] Dr. Addi Mario Work Phone: [facility] 08-24-2022 06:09-0500 Body weight 109.[address] Addi Mario Work Phone: [facility] 08-04-2022 14:02-0500 Body height 182.[address] Addi Mario Work Phone: [facility] Work Phone: 08-04-2022 14:02-0500 Body mass index (BMI) [Ratio] 32.3 kg/m2 Dr. Addi Mario Work Phone: [facility] 08-04-2022 14:02-0500 Body temperature 97.2 [degF] Dr. Addi Mario Work Phone: [facility] 08-04-2022 14:02-0500 Body weight 107.[address] Addi Mario Work Phone: [facility] 08-04-2022 14:02-0500 Diastolic blood pressure 78 mm[Hg] Dr. Addi Mario Work Phone: [facility] 08-04-2022 14:02-0500 Heart rate 52 /min Dr. Addi Mario Work Phone: [facility] 08-04-2022 14:02-0500 Respiratory rate 16 /min Dr. Addi Mario Work Phone: [facility] 08-04-2022 14:02-0500 SaO2% (BldA) [Mass fraction] 99 % Dr. Addi Mario Work Phone: [facility] 08-04-2022 14:02-0500 Systolic blood pressure 130 mm[Hg] Dr. Addi Mario Work Phone: [facility] 05-06-2022 11:43-0400 Body mass index (BMI) [Ratio] 32.4 kg/m2 Dr. Addi Mario Work Phone: [facility] Work Phone: 05-06-2022 11:43-0400 Body temperature 98.4 [degF] Dr. Addi Mario Work Phone: [facility] Work Phone: 05-06-2022 11:43-0400 Body weight 108.[address] Addi Mario Work Phone: [facility] Work Phone: 05-06-2022 11:43-0400 Diastolic blood pressure 72 mm[Hg] Dr. Addi Mario Work Phone: [facility] Work Phone: 05-06-2022 11:43-0400 Heart rate 61 /min Dr. Addi Mario Work Phone: [facility] Work Phone: 05-06-2022 11:43-0400 Respiratory rate 16 /min Dr. Addi Mario Work Phone: [facility] Work Phone: 05-06-2022 11:43-0400 SaO2% (BldA) [Mass fraction] 98 % Dr. Addi Mario Work Phone: [facility] Work Phone: 05-06-2022 11:43-0400 Systolic blood pressure 145 mm[Hg] Dr. Addi Mario Work Phone: [facility] Work Phone: 12-03-2021 14:07-0400 Body height 182.[address] Addi Mario Work Phone: [facility] Work Phone: 12-03-2021 14:07-0400 Body mass index (BMI) [Ratio] 32.3 kg/m2 Dr. Addi Mario Work Phone: [facility] Work Phone: 12-03-2021 14:07-0400 Body temperature 97.5 [degF] Dr. Addi Mario Work Phone: [facility] Work Phone: 12-03-2021 14:07-0400 Body weight 107.[address] Addi Mario Work Phone: [facility] Work Phone: 12-03-2021 14:07-0400 Diastolic blood pressure 82 mm[Hg] Dr. Addi Mario Work Phone: [facility] Work Phone: 12-03-2021 14:07-0400 Heart rate 73 /min Dr. Addi Mario Work Phone: [facility] Work Phone: 12-03-2021 14:07-0400 Respiratory rate 20 /min Dr. Addi Mario Work Phone: [facility] Work Phone: 12-03-2021 14:07-0400 SaO2% (BldA) [Mass fraction] 97 % Dr. Addi Mario Work Phone: [facility] Work Phone: 12-03-2021 14:07-0400 Systolic blood pressure 132 mm[Hg] Dr. Addi Mario Work Phone: [facility] Work Phone: 11-12-2021 11:46-0500 Body mass index (BMI) [Ratio] 32.8 kg/m2 Dr. Addi Mario Work Phone: [facility] Work Phone: 11-12-2021 11:46-0500 Body temperature 97.5 [degF] Dr. Addi Mario Work Phone: [facility] Work Phone: 11-12-2021 11:46-0500 Body weight 109.[address] Addi Mario Work Phone: [facility] Work Phone: 11-12-2021 11:46-0500 Diastolic blood pressure 68 mm[Hg] Dr. Addi Mario Work Phone: [facility] Work Phone: 11-12-2021 11:46-0500 Heart rate 47 /min Dr. Addi Mario Work Phone: [facility] Work Phone: 11-12-2021 11:46-0500 Respiratory rate 16 /min Dr. Addi Mario Work Phone: [facility] Work Phone: 11-12-2021 11:46-0500 SaO2% (BldA) [Mass fraction] 98 % Dr. Addi Mario Work Phone: [facility] Work Phone: 11-12-2021 11:46-0500 Systolic blood pressure 150 mm[Hg] Dr. Addi Mario Work Phone: [facility] Work Phone: 11-11-2021 14:41-0500 Diastolic blood pressure 92 mm[Hg] Dr. Addi Mario Work Phone: [facility] Work Phone: 11-11-2021 14:41-0500 Systolic blood pressure 182 mm[Hg] Dr. Addi Mario Work Phone: [facility] Work Phone: 10-15-2021 13:09-0500 Body mass index (BMI) [Ratio] 32.9 kg/m2 Dr. Addi Mario Work Phone: [facility] Work Phone: 10-15-2021 13:09-0500 Body temperature 97.7 [degF] Dr. Addi Mario Work Phone: [facility] Work Phone: 10-15-2021 13:09-0500 Body weight 110.[address] Addi Mario Work Phone: [facility] Work Phone: 10-15-2021 13:09-0500 Diastolic blood pressure 70 mm[Hg] Dr. Addi Mario Work Phone: [facility] Work Phone: 10-15-2021 13:09-0500 Heart rate 66 /min Dr. Addi Mario Work Phone: [facility] Work Phone: 10-15-2021 13:09-0500 Respiratory rate 16 /min Dr. Addi Mario Work Phone: [facility] Work Phone: 10-15-2021 13:09-0500 SaO2% (BldA) [Mass fraction] 97 % Dr. Addi Mario Work Phone: [facility] Work Phone: 10-15-2021 13:09-0500 Systolic blood pressure 142 mm[Hg] Dr. Addi Mario Work Phone: [facility] Work Phone: 09-23-2021 13:16-0500 Body mass index (BMI) [Ratio] 32.8 kg/m2 Dr. Addi Mario Work Phone: [facility] Work Phone: 09-23-2021 13:16-0500 Body temperature 95.7 [degF] Dr. Addi Mario Work Phone: [facility] Work Phone: 09-23-2021 13:16-0500 Body weight 109.[address] Addi Mario Work Phone: [facility] Work Phone: 09-23-2021 13:16-0500 Diastolic blood pressure 70 mm[Hg] Dr. Addi Mario Work Phone: [facility] Work Phone: 09-23-2021 13:16-0500 Heart rate 57 /min Dr. Addi Mario Work Phone: [facility] Work Phone: 09-23-2021 13:16-0500 Respiratory rate 16 /min Dr. Addi Mario Work Phone: [facility] Work Phone: 09-23-2021 13:16-0500 SaO2% (BldA) [Mass fraction] 96 % Dr. Addi Mario Work Phone: [facility] Work Phone: 09-23-2021 13:16-0500 Systolic blood pressure 166 mm[Hg] Dr. Addi Mario Work Phone: [facility] Work Phone: 08-18-2021 13:02-0500 Body mass index (BMI) [Ratio] 32.9 kg/m2 Dr. Addi Mario Work Phone: [facility] Work Phone: 08-18-2021 13:02-0500 Body weight 110.[address] Addi Mario Work Phone: [facility] Work Phone: 08-18-2021 13:02-0500 Diastolic blood pressure 69 mm[Hg] Dr. Addi Mario Work Phone: [facility] Work Phone: 08-18-2021 13:02-0500 Heart rate 47 /min Dr. Addi Mario Work Phone: [facility] Work Phone: 08-18-2021 13:02-0500 Respiratory rate 14 /min Dr. Addi Mario Work Phone: [facility] Work Phone: 08-18-2021 13:02-0500 Systolic blood pressure 127 mm[Hg] Dr. Addi Mario Work Phone: [facility] Work Phone: Encounters Encounter Date Encounter Type Care Provider Facility Start: 05-14-2025 End: 05-14-2025 Office outpatient new 45 minutes Corina Nguyen MD Work Phone: [facility] Cardiology [place] Comment on above: Paroxysmal atrial fi brillation (HCC) (Primary Dx); At risk for stroke; At risk for bleeding associated with anticoagulants; History of lower GI bleeding; Epistaxis; Bradycardia; Sinus node dysfunction (HCC); Sinus bradycardia; Atherosclerosis of [place] coronary 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; Presence of stent in coronary artery; Nonrheumatic aortic valve stenosis; Primary biliary cirrhosis (HCC); Moderate mitral valve regurgitation; Moderate tricuspid valve regurgitation Start: 05-14-2025 End: 05-14-2025 ambulatory CORINA NGUYEN Facility:[facility] Start: 05-08-2025 End: 05-08-[address] Addi Mario MD Work Phone: -Laboratory Start: 05-08-2025 End: 05-08-2025 Patient encounter procedure Maurice LUEVANO -Laboratory Work Phone: Start: 05-08-2025 End: 05-08-2025 Patient encounter procedure Maurice LUEVANO -[facility] Work Phone: Start: 05-08-2025 End: 05-08-[address] Addi Mario MD Work Phone: -[facility] Start: 05-08-2025 End: 05-08-2025 ambulatory Addi Mario Facility:[facility] Start: 04-19-2025 End: 04-19-2025 Patient encounter procedure Allison PRESSLEY -[facility] Work Phone: Start: 04-19-2025 End: 04-19-[address] Addi Mario MD Work Phone: -[facility] Start: 04-02-2025 Non-patient / Non-visit Dr. Vanessa jha MD -[facility] Start: 04-02-2025 End: 04-02-[address] Addi Mario MD Work Phone: -Cardiovascular Services Start: 04-02-2025 End: 04-02-[address] Odalis Schmidt MD -Cardiovascular Services Work Phone: Start: 04-02-2025 End: 04-02-2025 ambulatory Odalis Schmidt Facility:[facility] Start: 03-21-2025 End: 03-21-[address] Odalis Schmidt MD -[facility] Work Phone: Start: 03-21-2025 End: 03-21-[address] Addi Mario MD Work Phone: -[facility] Start: 03-17-2025 End: 03-17-2025 Emergency department patient visit Dr. Addi Mario MD Work Phone: -Emergency Department Work Phone: Start: 03-17-2025 End: 03-17-2025 Emergency department patient visit Dr. Addi Mario MD Work Phone: -Emergency Department Work Phone: Start: 03-14-2025 End: 03-14-[address] Addi Mario MD Work Phone: -Laboratory [facility] Start: 03-14-2025 End: 03-14-2025 Patient encounter procedure Gretchen Nguyen ELECT[employer]ICAL [employer]SEM[employer]Y TECHNICIAN-C -Laboratory [facility] Start: 03-14-2025 End: 03-14-2025 ambulatory Addi Mario Facility:[facility] Start: 03-10-2025 End: 03-10-2025 Emergency department patient visit Dr. Addi Mario MD Work Phone: -Emergency Department Work Phone: Start: 03-07-2025 End: 03-07-[address] Addi Mario MD Work Phone: [facility] Work Phone: Start: 03-07-2025 End: 03-07-2025 Patient encounter procedure Gretchen Nguyen ELECTRICAL ASSEMBLY TECHNICIAN-C -Laboratory Work Phone: Start: 03-07-2025 End: 03-07-2025 ambulatory Gretchen Nguyen ELECTRICAL ASSEMBLY TECHNICIAN Facility:[facility] Start: 03-05-2025 Non-patient / Non-visit Dr. Marcela Montana MD -[facility] Work Phone: Start: 03-05-2025 Patient encounter procedure Gretchen Nguyen ELECTRICAL ASSEMBLY TECHNICIAN-C -Pulmonary Services/Neurology Work Phone: Start: 03-05-2025 ambulatory Addi Hernandesi ty:[facility] Start: 02-19-2025 End: 02-19-2025 Patient encounter procedure Gretchen Nguyen NP-[facility] -[facility] Work Phone: Start: 02-19-2025 End: 02-19-[address] Addi Mario MD Work Phone: [facility] Work Phone: Start: 02-14-2025 End: 02-14-[address] Addi Mario MD -[facility] Work Phone: Start: 02-14-2025 End: 02-14-[address] 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 Addi Mario MD Work Phone: [facility] Work Phone: Start: 01-02-2025 End: 01-02-[address] Addi Mario MD -Radiology, [facility] Work Phone: Start: 01-02-2025 End: 01-02-2025 ambulatory [facility] Facility:[facility] Start: 12-31-2024 Encounter for antibo dy response examination [facility] Start: 12-27-2024 End: 12-27-[address] Addi Mario MD Work Phone: [facility] Work Phone: Start: 12-27-2024 End: 12-27-[address] Addi Mario MD -Laboratory, [place] Start: 12-27-2024 End: 12-27-2024 ambulatory [facility] Facility:[facility] Start: 12-19-[address] Addi Mario MD Work Phone: [facility] Start: 12-14-2024 End: 12-14-2024 Patient encounter procedure Ailin Sharma ELECTRICAL ASSEMBLY TECHNICIAN-C -[facility] Work Phone: Start: 12-14-2024 End: 12-14-2024 ambulatory [facility] Facility:[facility] Start: 11-30-2024 End: 11-30-2024 ambulatory [facility] Facility:[facility] Start: 11-30-2024 End: 11-30-2024 Patient encounter procedure Dr. Addi Mario MD -[facility] Work Phone: Start: 11-27-2024 End: 11-27-2024 Telephone encounter Alexis Green MD Work Phone: Ophthalmology Start: 11-26-2024 End: 11-26-[address] [facility] Facility:[facility] Start: 11-26-2024 End: 11-26-2024 Patient encounter procedure Shawn Shea MD Work Phone: Ophthalmology Comment on above: 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, severe stage Start: 11-15-2024 End: 11-15-[address] Addi Mario MD -[facility] Work Phone: Start: 11-15-2024 End: 11-15-[address] Addi Mario MD Work Phone: [facility] Work Phone: Start: 11-15-2024 End: 11-15-2024 ambulatory [facility] Facility:[facility] Start: 10-23-2024 End: 10-23-2024 Patient encounter procedure Ava Cardozo ME -[facility] Work Phone: Start: 10-23-2024 End: 10-23-2024 ambulatory Addi Mario Facility:[facility] Start: 10-03-2024 End: 10-03-2024 Telephone encounter Shawn Shea MD Work Phone: Ophthalmology Comment on above: follow up from 08/08 25 Start: 08-15-2024 End: 08-15-[address] Addi Mario MD -[facility] Work Phone: Start: 08-15-2024 End: 08-15-2024 ambulatory Addi Mario Facility:[facility] Start: 08-14-2024 End: 08-15-2024 ambulatory MANUEL LOGAN Facility:[facility] Start: 08-14-2024 End: 08-14-2024 Patient encounter procedure Priya Saleh OD Work Phone: Ophthalmology Comment on above: Redness of both eyes (Primary Dx); Primary open angle glaucoma (POAG) of both eyes, severe stage; Squamous blepharitis of upper and lower eyelids of both eyes; Epiretinal membrane (ERM) of left eye; Band keratopathy, bilateral Start: 08-09-2024 End: 08-09-2024 Patient encounter procedure Souleymane [facility] Work Phone: Start: 08-09-2024 End: 08-09-2024 ambulatory Addi Mario Facility:[facility] Start: 07-30-2024 End: 07-30-2024 ambulatory MANUEL LOGAN Facility:[facility] Start: 07-30-2024 End: 07-30-2024 Patient encounter procedure Shawn Shea MD Work Phone: Ophthalmology Comment on above: 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, severe stage Start: 06-14-2024 End: 06-14-2024 ambulatory Addi Mario Facility:[facility] Start: 05-15-2024 End: 05-15-2024 Telephone encounter Shawn Shea MD Work Phone: Ophthalmology Comment on above: Follow Up Start: 03-14-2024 Telephone encounter Lucina Friedman LS [facility] Op[facility]mology Comment on above: Consult to [facility] Start: 03-12-2024 End: 03-12-2024 ambulatory MANUEL LOGAN Facility:[facility] Start: 03-12-2024 End: 03-12-2024 Patient encounter procedure Shawn Shea MD Work Phone: Ophthalmology Comment on above: 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, severe stage Start: 03-10-2024 Refill Alexis Marvin panchal MD Work Phone: Ophthalmology Comment on above: Refill Request Start: 01-02-2024 Telephone encounter Shawn Shea MD Work Phone: Ophthalmology Comment on above: Medication Problem Start: 12-27-2023 End: 12-27-[address] Addi Mario Work Phone: [facility] Work Phone: Start: 12-21-2023 End: 12-21-2023 Admission to same day surgery center Dr. Addi Mario Work Phone: [facility] Start: 12-21-2023 End: 12-21-[address] Addi Mario Work Phone: [facility] Work Phone: Start: 12-08-2023 End: 01-01-2024 Evaluation and management of inpatient Dr. Addi Mario Work Phone: [facility]Transitional Care [facility] Start: 12-08-2023 Non-patient / Non-visit Dr. Aleah Mario Work Phone: [facility] Work Phone: Start: 12-07-2023 Non-patient / Non-visit Dr. Aleah Mario Work Phone: [facility] Work Phone: Start: 12-06-2023 Non-patient / Non-visit Dr. Aleah Mario Work Phone: [facility] Work Phone: Start: 12-06-2023 Non-patient / Non-visit Dr. Aleah Mario Work Phone: [facility] Start: 12-05-2023 Non-patient / Non-visit Dr. Aleah Mario Work Phone: [facility] Work Phone: Start: 12-05-2023 Non-patient / Non-visit Dr. Aleah Mario Work Phone: [facility] Start: 12-04-2023 Non-patient / Non-visit Dr. Aleah Mario Work Phone: [facility] Work Phone: Start: 12-03-2023 Non-patient / Non-visit Dr. Aleah Mario Work Phone: [facility] Work Phone: Start: 12-03-2023 Non-patient / Non-visit Dr. Aleah Mario Work Phone: [facility] Start: 12-02-2023 Non-patient / Non-visit Dr. Aleah Mario Work Phone: [facility] Work Phone: Start: 12-02-2023 End: 12-08-2023 Evaluation and management of inpatient Dr. 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 Addi Mario Work Phone: [facility] Work Phone: Start: 10-17-2023 End: 10-17-[address] Addi Mario Work Phone: [facility]-Pulmonary Services/Neurology Work Phone: Start: 09-02-2023 Telephone encounter Shawn Shea MD Work Phone: Ophthalmology Start: 08-15-2023 End: 08-15-[address] Addi Mario Work Phone: [facility] Internal Medicine Work Phone: Start: [...] 04-30-[address] Addi Mario Work Phone: [facility] Work Phone: Start: 04-30-2023 End: 04-30-[address] Addi Mario Work Phone: [facility]-Radiology, [facility] Work Phone: Start: 04-28-2023 End: 04-28-[address] Addi Mario Work Phone: [facility] Internal Medicine Work Phone: Start: 04-22-2023 End: 04-22-2023 Emergency department patient [facility] Start: 04-12-2023 End: 04-12-[address] Addi Mario Work Phone: [facility] Work Phone: Start: 03-25-2023 End: 03-25-2023 Emergency department patient [facility] Dr[facility] Add[facility] Start: 03-24-2023 End: 03-24-[address] Addi Mario Work Phone: [facility] Internal Medicine Work Phone: Start: 03-23-2023 End: 03-23-[address] Addi Mario Work Phone: [facility]-Laboratory, [place] Start: 03-21-2023 End: 03-21-2023 Emergency department patient visit Dr. Addi Mario Work Phone: [facility]Emergency Department Work Phone: Start: 03-12-2023 End: 03-12-2023 Emergency department patient visit Dr. Addi Mario Work Phone: [facility]-Emergency Department Start: 01-24-2023 End: 01-24-[address] Addi Mario Work Phone: [facility] Start: 01-22-2023 End: 01-22-2023 Emergency department patient visit Dr. Addi Mario Work Phone: [facility]-Emergency Department Start: 12-29-2022 End: 12-29-[address] Addi Mario Work Phone: [facility] Start: 11-03-2022 End: 11-03-[address] Add[facility] Mario [facility] Start: 10-14-2022 Non-patient / Non-visit Dr. Aleah Mario Work Phone: [facility] Start: 10-14-2022 End: 10-14-[address] Addi Mario Work Phone: [facility] Work Phone: Start: 10-14-2022 End: 10-14-[address] Addi Mario Work Phone: [facility]-Cardiovascular Services Start: 10-05-2022 End: 10-05-[address] Addi Mario Work Phone: [facility] Start: 09-08-2022 End: 09-08-[address] Addi Mario Work Phone: [facility]Laboratory, [place] Start: 09-08-2022 End: 09-08-[address] Addi Mario Work Phone: [facility] Start: 09-04-2022 End: 09-04-[address] Addi Mario Work Phone: [facility] Work Phone: Start: 09-04-2022 End: 09-04-[address] Addi Mario Work Phone: [facility]Labor[facility] Start: 08-27-2022 End: 08-27-[address] Addi Mario Work Phone: [facility] Start: 08-24-2022 End: 08-24-2022 Emergency department patient visit Dr. Addi Mario Work Phone: [facility]-Emergency Department Start: 08-04-2022 End: 08-04-[address] Addi Mario Work Phone: [facility] Work Phone: Start: 08-04-2022 End: 08-04-[address] Addi Mario Work Phone: [facility]Labor[facility] Start: 08-04-2022 End: 08-04-[address] Addi Mario Work Phone: [facility] Start: 07-10-2022 Refill Tristan rodriguez MD Work Phone: [facility] Cardiology Comment on above: Refill Request Start: 05-06-2022 End: 05-06-[address] Add[facility] Mario [facility] Start: 12-11-2021 End: 12-11-[address] Addi Mario Work Phone: [facility]-Pulmonary Services/Neurology Start: 12-03-2021 End: 12-03-[address] Addi Mario Work Phone: [facility]Labor[facility] Start: 12-03-2021 End: 12-03-[address] Addi Mario Work Phone: [facility] Start: 11-30-2021 End: 11-30-[address] Addi Mario Work Phone: [facility] Start: 11-12-2021 End: 11-12-[address] Add[facility] Mario [facility] Start: 11-11-2021 End: 11-11-[address] Addi Mario Work Phone: [facility] Start: 10-15-2021 End: 10-15-[address] Addi Mario Work Phone: [facility] Start: 09-23-2021 End: 09-23-[address] Addi Mario Work Phone: [facility] Start: 08-18-2021 End: 08-18-[address] Addi Mario Work Phone: [facility] Start: 08-17-2021 Non-patient / Non-visit Dr. Aleah Mario Work Phone: [facility] Start: 08-17-[address] Addi Mario Work Phone: [facility]-Cardiovascular Services Start: 12-22-2014 Patient encounter procedure Tristan Montana MD Work Phone: [facility] Procedures Date Procedure Procedure Detail Performing Clinician Start: 05-14-2025 Ecg routine ecg w/le ast 12 lds w/i&r Corina Nguyen MD Work Phone: Start: 03-10-2025 X-ray of foot, three or [...] MD Work Phone: Start: 03-14-2024 CONSULT TO [facility] [employer] [facility] Shawn Shea MD Work Phone: Start: [...] Plain chest X-ray Dr. Maria Del Carmen Maroi Work Phone: Start: 04-22-2023 Plain chest X-ray [...] DTaP,Tdap,Td Vaccine (2 - Td or Tdap) [facility] Start: 01-29-2026 End: 07-08-2026 OCT OPTIC NERVE CIRRUS OU (BOTH EYES) OCT OPTIC NERVE CIRRUS OU (BOTH EYES) [facility] Imaging Routine Primary open angle glaucoma (POAG) of both eyes, severe stage Expected: 01/29/2026, Expires: 07/08/2026 [facility] Work Phone: Comment on above: Expected: 01/29/2026, Expires: Start: 12-11-2025 End: 05-20-2026 OCT OPTIC NERVE CIRRUS OU (BOTH EYES) OCT OPTIC NERVE CIRRUS OU (BOTH EYES) [facility] Imaging Routine Primary open angle glaucoma (POAG) of both eyes, severe stage Expected: 12/11/2025, Expires: 05/20/2026 [facility] Work Phone: Comment on above: Expected: 12/11/2025, Expires: Start: 08-14-2025 End: 01-21-2026 OCT OPTIC NERVE CIRRUS OU (BOTH EYES) OCT OPTIC NERVE CIRRUS OU (BOTH EYES) [facility] Imaging Routine Primary open angle glaucoma (POAG) of both eyes, severe stage Expected: 08/14/2025, Expires: 01/21/2026 [facility] Work Phone: Comment on above: Expected: 08/14/2025, Expires: Start: 06-03-2025 End: 06-03-2025 Patient encounter procedure Ophthalmolog y Comment on above: Return in about 6 months (around 05/29/20 25) for OCT OU. Start: 05-20-2025 Influenza vaccination Influenza Vaccine (#1) [facility] Start: 03-27-2025 End: 09-03-2025 VISUAL FIELD 24-2 OU (BOTH EYES) VISUAL FIELD 24-2 OU (BOTH EYES) [facility] Imaging Routine Primary open angle glaucoma (POAG) of both eyes, severe stage Expected: 03/27/2025, Expires: 09/03/2025 [facility] Work Phone: Comment on above: Expected: 03/27/2025, Expires: Start: 03-21-2025 Evaluation of diagnostic study results [facility] Start: 03-17-2025 Control nasal hemorrhage anterior simple CONTROL OF NOSEBLEED [facility] Start: 03-17-2025 [facility] Start: 03-10-2025 [facility] Start: 02-19-2025 Evaluation of diagnostic study results [facility] Start: 02-14-2025 CBC W Auto Differential panel - Blood [facility] Start: 02-14-2025 Comprehensive metabolic 2000 panel - Serum or Plasma [facility] Start: 02-14-2025 Magnesium measurement [facility] Start: 02-14-2025 T4 free measurement [facility] Start: 02-14-2025 Thyroid stimulating hormone measurement [facility] Start: 12-23-2024 Covid-19 Vaccine ( season) Covid-19 Vaccine () [facility] Start: 11-26-2024 End: 11-26-2024 Patient encounter procedure 11/26/2024 2:00 PM EDT Office Visit [facility] [address] [place] [address] Shawn Shea MD [address] [place], [place] [id number] Return in about 4 months (around 11/27/2024) for OCT OU. Ophthalmology Comment on above: Return in about 4 months (around 11/28/19) for OCT OU. Start: 11-21-2024 End: 04-30-2025 OCT OPTIC NERVE CIRRUS OU (BOTH EYES) OCT OPTIC NERVE CIRRUS OU (BOTH EYES) [facility] Imaging Routine Primary open angle glaucoma (POAG) of both eyes, severe stage Expected: 11/21/2024, Expires: 04/30/2025 [facility] Work Phone: Comment on above: Expected: 11/21/2024, Expires: Start: 09-24-2024 End: 09-24-2024 Patient encounter procedure 09/24/2024 1:30 PM EST Office Visit [facility] [address] [place] [address] Shawn Shea MD [address] [place] [address] Return in about 6 months (around 09/11/2024) for VF . Ophthalmology Comment on above: Return in about 6 months (around 024) for VF . Start: 09-19-2024 Advance Directive Discussion Advance Directive Discussion [facility] Start: 09-19-2024 Medicare Advantage Annual Wellness Visit Medicare Advantage Annual Wellness Visit [facility] Start: 07-30-2024 End: 07-30-2024 Patient encounter procedure 07/30/2024 2:00 PM EST Office Visit [facility] [id number] [id number] Shawn Shea MD [address] [place] [address] Return in about 6 months (around 05/07/2024) for OCT OU. Ophthalmology Comment on above: Return in about 6 months (around 05/07/20 24) for OCT OU. Start: 06-15-2024 End: 11-22-2024 PACHYMETRY OU (BOTH EYES) PACHYMETRY OU (BOTH EYES) [facility] Imaging Routine Primary open angle glaucoma (POAG) of both eyes, severe stage Expected: 06/15/2024, Expires: 11/22/2024 [facility] Work Phone: Comment on above: Expected: 06/15/2024, Expires: Start: 06-15-2024 End: 11-22-2024 VISUAL FIELD 24-2 OU (BOTH EYES) VISUAL FIELD 24-2 OU (BOTH EYES) [facility] Imaging Routine Primary open angle glaucoma (POAG) of both eyes, severe stage Expected: 06/15/2024, Expires: 11/22/2024 [facility] Work Phone: Comment on above: Expected: 06/15/2024, Expires: Start: 05-20-2024 Influenza vaccination Influenza Vaccine (#1) [facility] Start: 05-07-2024 End: 05-07-2024 Patient encounter procedure 05/07/2024 2:00 PM EDT Office Visit [facility] [address] [place] [address] Shawn Shea MD [address] [place] [address] Return in about 6 months (around 05/07/2024) for OCT OU. Ophthalmology Comment on above: Return in about 6 months (around 05/07/20) for OCT OU. Start: 03-12-2024 End: 03-12-2024 Patient encounter procedure 03/12/2024 1:45 PM EDT Office Visit [facility] [address] [place] [address] Shawn Shea MD [address] [place] [address] date 03/12 Ophthalmology Comment on above: date 03/12 Start: 01-01-2024 Patient discharge [facility] Start: 12-30-2023 Blood chemistry [facility] Start: 12-22-2023 Referral to service [facility] Start: 12-21-2023 Patient discharge [facility] Start: 12-21-2023 Ambulation without limitation [facility] Start: 12-21-2023 Medication education [facility] Start: 12-21-2023 Taking patient vital signs [facility] Start: 12-21-2023 [facility] Start: 12-21-2023 Anes transurethral w/urethrocystoscopy nos ANESTH BLADDER SURGERY [facility] Start: 12-21-2023 Cysto w/ureteroscopy w/lithotripsy CYSTOURETERO W/LITHOTRIPSY [facility] Start: 12-15-2023 Speech therapy management [facility] Start: 12-15-2023 Speech therapy assessment [facility] Start: 12-09-2023 Development of care plan [facility] Start: 12-09-2023 Developing a treatment plan [facility] Start: 12-09-2023 [facility] Start: 12-08-2023 Verification routine [facility] Start: 12-08-2023 Following clinical pathway protocol [facility] Start: 12-08-2023 Admission procedure [facility] Start: 12-08-2023 Measuring intake and output [facility] Start: 12-08-2023 Patient referral to dietitian [facility] Start: 12-08-2023 Referral to occupational therapist [facility] Start: 12-08-2023 Referral to service [facility] Start: 12-08-2023 Vital signs measurements [facility] Start: 12-08-2023 [facility] Start: 12-08-2023 Patient discharge [facility] Start: 12-06-2023 Consultation [facility] Start: 12-06-2023 Patient referral [facility] Work Phone: Start: 12-05-2023 Notification of physician [facility] Start: 12-05-2023 Patient education [facility] Start: 12-05-2023 Provision of activity privileges [facility] Start: 12-05-2023 Pulse taking [facility] Start: 12-05-2023 Taking patient vital signs [facility] Start: 12-05-2023 Wound care [facility] Start: 12-05-2023 [facility] Start: 12-04-2023 Application of intermittent pneumatic compression device [facility] Start: 12-03-2023 Referral to occupational therapist [facility] Start: 12-03-2023 Referral to service [facility] Start: 12-03-2023 Inhalation therapy procedure [facility] Start: 12-02-2023 Following clinical pathway protocol [facility] Start: 12-02-2023 Ambulation without limitation [facility] Start: 12-02-2023 Assessment of risk of venous thromboembolism [facility] Start: 12-02-2023 Insertion of catheter into peripheral vein [facility] Start: 12-02-2023 Measuring intake and output [facility] Start: 12-02-2023 Providing care according to standard [facility] Start: 12-02-2023 Referral to health unit coordinator [facility] Start: 12-02-2023 Referral to service [facility] Start: 12-02-2023 [facility] Start: 12-02-2023 Admission procedure [facility] Start: 12-02-2023 Hospital admission, emergency, from emergency room, medical nature [facility] Start: 12-02-2023 Troponin I measurement [facility] Start: 12-02-2023 [facility] Start: 12-02-2023 Bacteria identified in Blood by Culture Blood Culture [facility] Start: 12-02-2023 Bacteria identified in Urine by Culture [facility] Start: 12-02-2023 End: 12-02-2023 Blood culture [facility] Start: 12-02-2023 [facility] Start: 11-29-2023 Covid-19 Vaccine ( season) Covid-19 Vaccine () [facility] Start: 09-19-2023 Advance Directive Discussion Advance Directive Discussion [facility] Start: 09-19-2023 Behavioral Health Screening Behavioral Health Screening [facility] Start: 09-19-2023 Depression Assessment Depression Assessment [facility] Start: 05-20-2023 Covid-19 Vaccine () Covid-19 Vaccine () [facility] Start: 05-20-2023 Influenza vaccination Influenza Vaccine (#1) [facility] Start: 04-22-2023 [facility] Start: 03-25-2023 Control nasal hemorrhage anterior simple CONTROL OF NOSEBLEED [facility] Start: 10-17-2022 Covid-19 Vaccine (6 - Moderna series) Covid-19 Vaccine (6 - Moderna series) [facility] Start: 09-19-2022 Advance Directive Discussion Advance Directive Discussion [facility] Start: 09-19-2022 Depression Assessment Depression Assessment [facility] Start: 05-20-2022 Influenza vaccination INFLUENZA (#1) [facility] Start: 09-19-2021 ADVANCE DIRECTIVE DISCUSSION ADVANCE DIRECTIVE DISCUSSION [facility] Start: 09-19-2021 DEPRESSION ASSESSMENT DEPRESSION ASSESSMENT [facility] Start: 09-22-2019 SHINGRIX VACCINE (3 of 3) SHINGRIX VACCINE (3 of 3) [facility] Start: 03-11-2019 DIABETES SCREEN DIABETES SCREEN [facility] Start: 03-11-2019 Diabetes Screening Diabetes Screening [facility] Start: 11-09-2017 Hepatitis B surface antibody level LDL Cholesterol [facility] Start: 05-25-2007 Urine microalbumin profile [facility] Start: 1997 Hepatitis B Vaccine (1 of 3 - Risk 3-dose series) Hepatitis B Vaccine (1 of 3 - Risk 3-dose series) [facility] Start: 02-21-1956 Hepatitis A Vaccine (1 of 2 - Risk 2-dose series) Hepatitis A Vaccine (1 of 2 - Risk 2-dose series) [facility] Start: 1955 Anxiety Screening Anxiety Screening [facility] Start: 1955 Depression Screening Depression Screening [facility] Start: 1955 Spirometry Spirometry [facility] Start: 1937 COVID-19 VACCINE (#1) COVID-19 VACCINE (#1) [facility] Alanine aminotransfe rase [Enzymatic activity/volume] in Serum or Plasma [facility] Albumin [Mass/volume ] in Serum or Plasma [facility] Alkaline phosphatase [Enzymatic activity/volume] in Serum or Plasma [facility] Ambulatory ECG [facility] Anion gap in Serum or Plasma [facility] Anion gap measurement [facility] Bilirubin, total measurement [facility] Blood chemistry [facility] BUN/Creatinine ratio [facility] BUN/Creatinine ratio [facility] [facility] Calcium [Mass/volume ] in Serum or Plasma [facility] Calcium [Mass/volume ] in Serum or Plasma [facility] Carbon dioxide, tota l [Moles/volume] in Central venous blood [facility] Carbon dioxide, tota l [Moles/volume] in Serum or Plasma [facility] CBC W Auto Different ial panel - Blood [facility] Work Phone: Chloride [Moles/volu me] in Serum or Plasma [facility] Complete blood count [facility] Complete blood count [facility] Comprehensive metabo lic 2000 panel - Serum or Plasma [facility] Creatinine [Mass/vol ume] in Serum or Plasma [facility] Creatinine [Moles/vo lume] in Serum or Plasma [facility] Electrocardiographic procedure [facility] Erythrocyte mean cor puscular volume determination [facility] Erythrocyte mean cor puscular volume determination [facility] Evaluation of diagno stic study results [facility] Folate [Mass/volume] in Serum or Plasma [facility] Work Phone: Glucose [Mass/volume ] in Serum or Plasma [facility] Glucose [Mass/volume ] in Serum or Plasma [facility] Hematocrit [Volume F raction] of Blood [facility] Hematocrit [Volume F raction] of Blood [facility] Hemoglobin [Mass/vol ume] in Blood [facility] Hemoglobin [Mass/vol ume] in Blood [facility] Leukocytes [#/volume ] in Blood [facility] Leukocytes [#/volume ] in Blood [facility] Mean corpuscular hem oglobin concentration determination [facility] Mean corpuscular hem oglobin concentration determination [facility] Mean corpuscular hem oglobin determination [facility] Mean corpuscular hem oglobin determination [facility] Measurement of renal function [facility] Measurement of renal function [facility] Natriuretic peptide. B prohormone N-Terminal [Mass/volume] in Serum or Plasma [facility] Neutrophil count [facility] Neutrophil count [facility] Neutrophil percent differential count [facility] Neutrophil percent differential count [facility] Patient Education [facility] Work Phone: Patient referral [facility] Work Phone: Platelets [#/volume] in Blood [facility] Platelets [#/volume] in Blood [facility] Potassium [Moles/vol ume] in Serum or Plasma [facility] Potassium measurement [facility] Red blood cell count [facility] Red blood cell count [facility] Red cell distributio n width determination [facility] Red cell distributio n width determination [facility] Serum chloride measurement [facility] Sodium [Moles/volume ] in Serum or Plasma [facility] Sodium measurement [facility] Thyroid stimulating hormone measurement [facility] Total protein measurement [facility] Troponin T.cardiac [Mass/volume] in Serum or Plasma by High sensitivity method [facility] Urea nitrogen [Mass/ volume] in Serum or Plasma [facility] Urea nitrogen [Mass/ volume] in Serum or Plasma [facility] US Heart [facility] Vitamin B12 measurement [facility] Work Phone: Vitamin B12 measurement [facility] Immunizations Immunization Date Immunization Notes Care Provider Kiana montoya 06-24-2024 Covid (Spikevax) Dr. Audrey Mario MD Work Phone: [facility] 06-14-2024 Seasonal trivalent influenza vaccine, adjuvanted, preservative free Dr. Addi Mario MD Work Phone: [facility] 06-14-2024 influenza virus vaccine, unspecified formulation Corina Nguyen MD Work Phone: [facility] 12-13-2023 Covid (Spikevax) Dr. Audrey Mario Work Phone: [facility] 07-31-2023 Covid (Spikevax) Dr. Audrey Mario Work Phone: [facility] 07-31-2023 Pneumococcal Vaccine PCV20 (Prevnar 20) Dr. Addi Mario Work Phone: [facility] 06-26-2023 influenza (aIIV4) vaccine, age 65+ yr, quadrivalent, PF (FLUAD QUAD) Corina Nguyen MD Work Phone: [facility] 06-26-2023 influenza, injectabl e, quadrivalent, preservative free Dr. Addi Mario Work Phone: [facility] 06-26-2023 RSV Adult Recombinan t (Arexvy) Dr. Addi Mario MD Work Phone: [facility] 06-26-2023 influenza virus vaccine, unspecified formulation Shawn Shea MD Work Phone: [facility] 06-17-2022 Covid Moderna Bivale nt Booster Dr. Addi Mario MD Work Phone: [facility] 05-25-2022 Influenza High-Dose Quadrivalent Dr. Addi Mario MD Work Phone: [facility] 05-25-2022 influenza virus vaccine, unspecified formulation Shawn Shea MD Work Phone: [facility] 01-06-2022 Covid (Moderna) Dr. Lacho Mario MD Work Phone: [facility] 07-26-2021 Covid (Moderna) Dr. Lacho Mario Work Phone: [facility] 06-23-[address] Addi Mario Work Phone: [facility] 06-23-2021 influenza, seasonal, injectable Corina Nguyen MD Work Phone: [facility] 06-23-2021 influenza, seasonal, injectable, preservative free Corina Nguyen MD Work Phone: [facility] 11-26-2020 Covid (Moderna) Dr. Lacho Mario Work Phone: [facility] 10-30-2020 Covid (Moderna) Dr. Lacho Mario MD Work Phone: [facility] 10-24-2020 Covid (Moderna) Dr. Lacho Mario Work Phone: [facility] 06-06-2020 tetanus toxoid, redu korin diphtheria toxoid, and acellular pertussis vaccine, adsorbed Dr. Addi Mario Work Phone: [facility] 05-27-[address] Addi Mario Work Phone: [facility] 05-27-2020 influenza, seasonal, injectable Corina Nguyen MD Work Phone: [facility] 05-27-2020 influenza, seasonal, injectable, preservative free Corina Nguyen MD Work Phone: [facility] 05-17-2020 influenza, high dose seasonal, preservative-free Dr. Addi Mario MD Work Phone: [facility] 07-28-2019 zoster vaccine recombinant Tristan Montana MD Work Phone: [facility] 07-09-2019 influenza, high dose seasonal, preservative-free Dr. Addi Mario MD Work Phone: [facility] 06-30-2018 influenza, high dose seasonal, preservative-free Dr. Addi Mario MD Work Phone: [facility] 06-29-2017 influenza, high dose seasonal, preservative-free Dr. Addi Mario MD Work Phone: [facility] 07-13-2016 influenza, high dose seasonal, preservative-free Tristan Montana MD Work Phone: [facility] 07-07-2016 influenza, injectabl e, quadrivalent, preservative free Dr. Addi Mario MD Work Phone: [facility] 07-07-2016 influenza, seasonal, injectable Corina Nguyen MD Work Phone: [facility] 06-10-2015 influenza, high dose seasonal, preservative-free Tristan Montana MD Work Phone: [facility] 09-27-2014 pneumococcal conjuga te vaccine, 13 valent Tristan Montaan MD Work Phone: [facility] 07-24-2014 influenza, injectabl e, quadrivalent, preservative free Dr. Addi Mario MD Work Phone: [facility] 07-24-2014 influenza, seasonal, injectable Tristan Montana MD Work Phone: [facility] 06-13-2013 influenza virus vaccine, unspecified formulation Tristan Montana MD Work Phone: [facility] 06-13-2012 influenza virus vaccine, unspecified formulation Tristan Montana MD Work Phone: [facility] 07-21-2010 zoster vaccine, live Maria Guadalupe Montana MD Work Phone: [facility] 06-30-2010 influenza virus vaccine, whole virus Corina Nguyen MD Work Phone: [facility] 06-30-2010 influenza, injectabl e, quadrivalent, preservative free Dr. Addi Mario MD Work Phone: [facility] 09-08-2009 novel [id number], preservative-free, injectable Dr. Addi Mario MD Work Phone: [facility] 06-13-2009 influenza virus vaccine, whole virus Corina Nguyen MD Work Phone: [facility] 06-13-2009 influenza, injectabl e, quadrivalent, preservative free Dr. Addi Mario MD Work Phone: [facility] 08-23-2007 pneumococcal polysaccharide vaccine, 23 valent Tristan Montana MD Work Phone: [facility] 05-24-2007 tetanus and diphther ia toxoids, adsorbed, preservative free, for adult use (2 Lf of tetanus toxoid and 2 Lf of diphtheria toxoid) Tristan Montana MD Work Phone: [facility] 09-19-2001 pneumococcal polysaccharide vaccine, 23 valjuan Montana MD Work Phone: [facility] Payers Date Payer Category Payer Self-pay [id number] 2014 Medicare (Managed Care) PRIMETIM E [id number] 2014 Unknown PRIMETIME PRIMET ZACH HMO POS [id number] 2014-Present [phone] [address] [place] [address] HMO [id number] 2014 Unknown [id number] Unknown [id number] [id number]. 2.462 Unknown [id number] 2.16.840.1.307965.3.579. 2.462 Unknown [id number] 2.16.840.1.893297.3.579. 2.462 Unknown [id number] 2.16.840.1.260168.3.579. 2.462 Unknown [id number] 2.16.840.1.561437.3.579. 2.462 Unknown [id number] 2.16.840.1.816550.3.579. 2.462 Unknown [id number] 2.16.840.1.347769.3.579. 2.462 Unknown [id number] 2.16.840.1.833930.3.579. 2.462 Unknown [id number] 2.16.840.1.672670.3.579. 2.462 Unknown [id number] 2.16.840.1.528774.3.579. 2.462 Unknown [id number] 2.16.840.1.213890.3.579. 2.462 Unknown [id number] 2.16.840.1.309597.3.579. 2.462 Unknown [id number] 2.16.840.1.347840.3.579. 2.462 Unknown [id number] 2.16.840.1.706016.3.579. 2.462 Unknown [id number] 2.16.840.1.575360.3.579. 2.462 Unknown [id number] 2.16.840.1.729770.3.579. 2.462 Unknown [id number] 2.16.840.1.757296.3.579. 2.462 Unknown [id number] 2.16.840.1.981356.3.579. 2.462 Unknown [id number] 2.16.840.1.616598.3.579. 2.462 Unknown [id number] 2.16.840.1.305438.3.579. 2.462 Unknown [id number] 2.16.840.1.619750.3.579. 2.462 Unknown [id number] 2.16.840.1.386541.3.579. 2.462 Unknown [id number] 2.16.840.1.220244.3.579. 2.462 Unknown [id number] 2.16.840.1.888987.3.579. 2.462 Unknown [id number] 2.16.840.1.462453.3.579. 2.462 Unknown [id number] 2.16.840.1.660549.3.579. 2.462 Unknown [id number] 2.16.840.1.300331.3.579. 2.462 Social History Date Type Detail Facility Start: 12-03-2021 End: 12-27-2023 Tobacco smoking status NHIS Unknown if ever smoked [facility] Start: 02-12-2021 None [facility] Start: 06-11-2020 Spouse/ Signif icant Other [facility] Start: 02-12-2021 Non-smoker [facility] Start: 1935 Sex Assigned At Male [facility] Start: 11-02-2016 End: 03-17-2025 Tobacco smoking status NHIS Never smoked tobacco [facility] Work Phone: Start: 11-02-2016 End: 05-14-2025 Tobacco use and exposure Smokeless tobacco non-user [facility] Work Phone: Start: 11-22-2016 End: 05-14-2025 Alcohol intake Current drinker of alcohol (finding) [facility] Start: 11-02-2016 Alcohol Comment rare [facility] Start: 1935 Sex Assigned At Not on file [facility] Start: 06-01-2023 End: 05-07-2024 History of Social function [facility] Start: 06-01-2023 End: 05-07-2024 Tobacco use panel [facility] Start: 08-20-2012 National Score (1-100), lower number is lower risk 67 [facility] Start: 11-29-2024 End: 01-07-2025 Sex Male (finding) [facility] Medical Equipment Procedure Code Equipment Code [...] Goals Date Patient Goal Desired Activity /State Personal health goal Functional Status Date Assessment Result Facility 01-01-2024 Functional status Ambulates [facility] Work Phone: 12-27-2023 Functional status Chair [facility] Work Phone: 12-08-2023 Functional status Ambulates [facility] Work Phone: 04-22-2015 Are you deaf, or do you have serious difficulty hearing No 04/22/2015 11:41 AM Jason Tyson LPN No [facility] 04-22-2015 Are you blind, or do you have serious difficulty seeing, even when wearing glasses No 04/22/2015 11:41 AM Jason Tyson LPN No [facility] 04-22-2015 Do you have serious difficulty walking or climbing stairs No 04/22/2015 11:41 AM Jason Tyson LPN No [facility] 04-22-2015 Do you have difficul ty dressing or bathing No 04/22/2015 11:41 AM EDT Jason Grossman LPN No [facility] 04-22-2015 Because of a physica l, mental, or emotional condition, do you have difficulty doing errands alone such as visiting a physician's office or shopping No 04/22/2015 11:41 AM EDT Jason Grossman LPN No [facility] Mental Status Date Assessment Result Facility 01-01-2024 Cognitive function Voice/Name;Touch/Shaki ng [facility] Work Phone: 12-26-2023 Cognitive function Voice/Name;Touch/Shaki ng [facility] Work Phone: 12-22-2023 Cognitive function Appropriate;Cooperativ e [facility] Work Phone: 12-21-2023 Cognitive function Voice/Name [facility] Work Phone: 12-08-2023 Cognitive function Voice/Name [facility] Work Phone: 12-02-2023 Cognitive function Level Of Cons ciousness Awake;Alert;Appropriate;Fol lows Commands [facility] Work Phone: 03-12-2023 Cognitive function Level Of Cons ciousness Awake;Alert;Appropriate;Fol lows Commands [facility] Work Phone: 04-22-2015 Because of a physica l, mental, or emotional condition, do you have serious difficulty concentrating, remembering, or making decisions No 04/22/2015 11:41 AM EDT Jason Grossman LPN No [facility] Clinical Notes 12-23-2015 to 05-14-2025 Patient InstructionsCorina Nguyen MD - 05/14/2025 2:20 PM EDT Note Date & Type Note Facility 05-14-2025 Instructions Corina Nguyen MD - 05/14/2025 3:31 PM EDT We discussed your atrial fibrillation (AFib) and management options: - Your AFib is asymptomatic, meaning you do not feel symptoms like palpitations or shortness of breath. Current guidelines recommend managing your AFib by controlling your heart rate and reducing your stroke risk. - You are currently taking Eliquis (5 mg twice daily) to prevent stroke. However, due to your history of significant nosebleeds, gastrointestinal bleeding, and chronic thrombocytopenia, there is concern about the long-term risks of continuing anticoagulation therapy. - We discussed the Watchman device as an alternative to Eliquis. This device is implanted in the heart to reduce stroke risk by sealing off the left atrial appendage, where clots often form in AFib. - The procedure is minimally invasive, similar to having a stent placed, and has a high success rate with low risk of complications. - If you decide to proceed, the next step would be a specialized CT scan at [facility] to assess the size and shape of your left atrial appendage. If transportation to [place] is a challenge, we can discuss alternatives, such as evaluating the appendage on the day of the procedure using transesophageal echocardiography (BOSSMAN). - After the procedure, you would need to take a short-term anticoagulant or antiplatelet regimen (e.g., Eliquis or Plavix with aspirin) for six weeks, followed by aspirin alone after six months. We discussed your bradycardia (slow heart rate): - You have had documented episodes of bradycardia, but you are not experiencing symptoms such as severe lightheadedness or fainting. At this time, a pacemaker is not necessary. - Your Apple Watch readings of low heart rates may be inaccurate due to premature ventricular contractions (PVCs), which can interfere with peripheral heart rate measurements. We discussed your next steps: - Please consider the Watchman device and discuss it with your family. If you decide to proceed, we will schedule the CT scan and the procedure at [facility]. - If you experience worsening symptoms, such as severe lightheadedness, fainting, or increased shortness of breath, please contact our office immediately. - Continue taking your current medications as prescribed: - Eliquis 5 mg twice daily for stroke prevention. - Atorvastatin 20 mg once daily. 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 - Finasteride 5 mg once daily. - Tylenol as needed for pain (avoid ibuprofen or Motrin). We will communicate with Dr. Schmidt and your primary care physician, Dr. Mario, to coordinate your care. If you have any questions or concerns, please reach out to our office. documented in this encounter [facility] 05-14-2025 History of Present illness Narrative PRIMARY CARE PHYSICIAN: Addi Mario ([facility]) [address] [place] [address] REFERRING PHYSICIAN: Odalis Schmidt MD [address] [facility] [address] Patient Care Team: Addi Mario MD as PCP - General (Internal Medicine) Gretchen Nguyen CNP as Nurse Practitioner (Internal Medicine) Odalis Schmidt as Specialty Oyster Washer (Cardiology) Recording using cheerapp software for draft documentation of the visit was discussed with the patient/authorized dermatology sales representative; all questions welcomed and answered. Patient/authorized dermatology sales representative agreed to proceed CHIEF COMPLAINT: Evaluation of arrhythmia HISTORY OF PRESENT ILLNESS: Mr. Rust is a 89 year old male who presents today for evaluation of management of atrial fibrillation and stroke risk. He is accompanied by his but also his son and daughter by telephone speaker phone. Patient Overview: Mr. Rust is referred for evaluation of atrial fibrillation by [facility]. The atrial fibrillation has been increasing in frequency and duration recently. He reports symptoms of fatigue, though he has a long-standing history of fatigue. He has also been found to have bradycardia. Records from [facility] indicate suspicion that the atrial fibrillation is not substantially symptomatic. There is concern about unfavorable risk to benefit for oral anticoagulation therapy. He was seen by Dr. Schmidt of [facility] on 03/21/2025. He has a complex cardiovascular history, including coronary artery disease with previous stenting of the LAD in 2009 and 2016. He had an NSTEMI in November 2023 and underwent cardiac catheterization that revealed no severe stenosis requiring intervention; he was treated medically. An echocardiogram at that time revealed mild left ventricular systolic dysfunction, LVEF 45%. In February 2025, the patient reported that his Apple Watch had identified atrial fibrillation. A 48-hour monitor was performed, and he was in atrial fibrillation 98% of the time, with PVCs about 4% burden. Medical records indicate the patient has no symptoms attributable to the atrial fibrillation, and the only way he knows he is in atrial fibrillation is by checking his Apple Watch. He has a history of primary biliary cirrhosis, GI bleeding, and nosebleeds. The more recent nosebleed required packing and electrocautery. He has been treated with Eliquis oral anticoagulation therapy for stroke prevention from the atrial fibrillation, but there seems to be unfavorable risks to benefit, given the bleeding. He has also been documented to have bradycardia down to 27 beats per minute, and there is concern that he also has sleep apnea. In addition to GI bleeding, he has chronic thrombocytopenia. Referral is made with the question of whether the patient should have treatment for the atrial fibrillation given the lack of symptoms and advanced age, and also whether he would be a candidate for Watchman left atrial appendage closure device. Noted in the medical records is sinus bradycardia, indicating some degree of sinus node dysfunction. Diagnostic Results: - Echocardiogram (04/02/2025): - Normal left ventricular size and systolic function - LVEF: 55% - Mild concentric LVH - Stage 1 diastolic dysfunction - Moderate biatrial dilation - Moderate mitral valve regurgitation - Moderate tricuspid valve regurgitation - Moderate aortic valve stenosis - 48-hour monitor (February 2025): - Atrial fibrillation: 98% of the time - PVCs: 4% burden Items for Follow-Up Today: - Evaluation of atrial fibrillation and its management - Consideration of Watchman left atrial appendage closure device candidacy The patient is an 89-year-old male with a history of CAD, status post LAD stenting in 2009 and 2016, NSTEMI in 11/2023, and primary biliary cirrhosis, presenting for evaluation of atrial fibrillation. The patient was referred by [facility] for evaluation of atrial fibrillation, which has been increasing in frequency and duration. He reports symptoms of fatigue, though he has a long-standing history of fatigue. He also experiences mild dyspnea when walking uphill. He denies palpitations, lightheadedness, or syncope. He has been found to have bradycardia, with heart rates documented as low as 27 bpm -- this was by his Apple Watch, so might have represented falsely low reading if he was having frequent PVCs at that time --- aka pulse deficit. There is concern for sleep apnea, but he has not yet undergone evaluation. In February 2025, his Apple Watch identified atrial fibrillation. A 48-hour monitor revealed atrial fibrillation 98% of the time and a PVC burden of 4%. Medical records indicate he has no symptoms attributable to the atrial fibrillation and is only aware of it by checking his Apple Watch. An echocardiogram on 04/02/2025 revealed normal left ventricular size and systolic function, LVEF 55%, mild concentric LVH, stage 1 diastolic dysfunction, moderate biatrial dilation, moderate mitral and tricuspid regurgitation, and moderate aortic stenosis. He has a history of GI bleeding (but not requiring blood transfusion) and epistaxis, with the most recent nosebleed requiring packing and electrocautery. He also has chronic thrombocytopenia. He has been treated with Eliquis for stroke prevention, but there is concern about the unfavorable [id number] ratio given his bleeding history. He has a complex cardiovascular history, including CAD with previous stenting of the LAD in 2009 and 2016. He experienced an NSTEMI in 11/2023 and underwent cardiac catheterization, which revealed no severe stenosis requiring intervention; he was treated medically. An echocardiogram at that time revealed mild left ventricular systolic dysfunction with an LVEF of 45%. He has a history of primary biliary cirrhosis and asthma. He underwent a colectomy in 2009 for a precancerous polyp and has a history of left knee arthroscopy in 2004. He denies any other recent surgeries. He reports that his blood pressure is typically lower at home than the reading of 161/84 mmHg taken today. He has a nurse who visits once a week. He has allergies to metoprolol, beta blockers, amlodipine, penicillin, mold, and long-haired dogs and cats. He currently takes atorvastatin 20 mg once daily, Eliquis 5 mg BID, finasteride 5 mg once daily, and ursodiol 500 mg BID. He only takes Tylenol as needed and avoids ibuprofen. I have confirmed and edited as necessary, the PFSH and ROS obtained by others. 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 Maurice. Bradycardia Calculus of gallbladder without mention of cholecystitis or obstruction 12/10/2008 Calculus of kidney 12/10/2008 Cardiomyopathy (HCC) Cervicalgia 04/13/2007 CHF (congestive heart failure) (HCC) Chronic midline low back pain with sciatica 12/23/2015 Coronary stent 08/26/2010 DDD (degenerative disc disease), cervical 06/13/2013 Dysplastic colon polyp 11/21/2006 Dr. Grant, Gastroenterology, [place]. Elevated prostate specific antigen (PSA) 11/21/[address] Maurice Gastrointestinal hemorrhage 12/23/2015 Glaucoma 01/28/2010 Dr. Cloud. History of lower GI bleeding 05/13/2025 History of nonmelanoma skin cancer 2017 SCC nose. Hypertension Iron deficiency anemia due to chronic blood loss 12/23/2015 Mitral regurgitation Mixed hyperlipidemia 11/21/2006 Non-STEMI (non-ST elevated myocardial infarction) (HCC) Nonrheumatic aortic (valve) stenosis Obesity Orthostatic hypotension Paroxysmal atrial fibrillation (HCC) Primary biliary cirrhosis (HCC) 10/27/2010 Dr. Grant, Gastroenterology, [place]. PULMONARY NODULE 11/21/2006 Dr. Denzel Powell, Pulmonary. 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 BXS TRURL ELECTROSURG RESCJ PROSTATE BLEED COMPLETE 10/2003 TURP SOCIAL HISTORY SOCIAL HISTORY[1] FAMILY HISTORY Problem Relation Age of Onset Stroke Father ALLERGIES: ALLERGIES Allergen Reactions Beta-Blockers (Beta* Shortness of Breath, Other: See Comments Amlodipine Other: See Comments fatigue,lightheaded Lipitor [Atorvastat* Intolerance pvc, enzyme elevation Long Haired Dogs An* Other: See Comments Metoprolol Other: See Comments Shortness of breath Mold Other: See Comments Penicillins Hives Had hives in the 70's MEDICATIONS: apixaban (ELIQUIS) 5 mg tab(s) Take 5 mg by mouth two times a day. vitamin D3-vitamin K2 1,250-200 mcg cap Take 1 tablet by mouth once daily. atorvastatin (LIPITOR) 20 mg tablet Take 20 mg by mouth once daily. Ursodiol 500 mg tablet Take 500 mg by mouth two times a day. brinzolamide-brimonidine (SIMBRINZA) 1%-0.2 % Ophth Susp Use 1 Drop in both eyes two times a day. ROCKLATAN 0.02-0.005 % ophthalmic solution Use 1 Drop in both eyes daily at bedtime. potassium chloride ER (KLOR-CON M10) 10 mEq tablet Take 10 mEq by mouth once daily. ferrous sulfate 325 mg (65 mg iron) tablet Take 1 tablet by mouth every 48 hours. famotidine (PEPCID) 20 mg tablet Take 1 tablet by mouth once daily. budesonide-formoterol (SYMBICORT) 160-4.5 mcg/actuation inhaler inhale 2 puffs by mouth once daily clobetasol (TEMOVATE) 0.05 % cream apply 1 APPLICATION topically once daily if needed for rash propylene glycol/peg 400 (SYSTANE FREE, PF, OPHTHALMIC) Use 1 Drop in eyes as needed. nitroglycerin sublingual (NITROQUICK) 0.4 mg SL tablet Dissolve 1 tablet under the tongue every 5 minutes as needed for Chest Pain (Max of 3 tabs.). albuterol HFA (PROAIR HFA) 90 mcg/actuation inhaler Inhale 2 Puffs as instructed every 4 hours as needed for Wheezing/Shortness of Breath. pediatric multivitamin plus minerals with iron chewable (FLINTSTONES COMPLETE, IRON,) chewable tablet Take 1 tablet by mouth twice daily. hydrocortisone 2.5 % cream Apply 1 application to affected area twice daily. mometasone (ELOCON) 0.1 % cream APPLY TO AFFECTED AREA(S) PSORIASIS ON ELBOWS AND EARS QDAY TO BID PRN AND THEN TAPER OFF ABLE. AVOID FACE, EYES, EYELIDS, AND DEEP FOLD AREAS. cetirizine (ZYRTEC) 10 mg tablet Take 1 tablet by mouth once daily. FINASTERIDE 5 MG TAB Take 5 mg by mouth once daily. REVIEW OF SYSTEMS: Review of Systems Constitutional: Positive for malaise/fatigue. Negative for chills and fever. HENT: Positive for nosebleeds. Respiratory: Positive for shortness of breath (exertional). Negative for cough, hemoptysis and sputum production. Cardiovascular: Negative for chest pain, palpitations, orthopnea and PND. Gastrointestinal: Negative for abdominal pain, blood in stool, melena, nausea and vomiting. Genitourinary: Negative for hematuria. Musculoskeletal: Negative for falls. Skin: Negative for rash. Neurological: Negative for dizziness, focal weakness, seizures and loss of consciousness. PHYSICAL EXAMINATION: BP 161/84 Pulse 52 Wt 223 lb 12.8 oz (101.5kg) SpO2 95% Physical Exam Vitals reviewed. Constitutional: General: He is not in acute distress. HENT: Head: Normocephalic and atraumatic. Cardiovascular: Rate and Rhythm: Normal rate. Rhythm irregularly irregular. Heart sounds: S1 normal and S2 normal. Murmur heard. Systolic murmur is present with a grade of 2/6. No friction rub. Pulmonary: Effort: Pulmonary effort is normal. No respiratory distress. Breath sounds: Normal breath sounds. No wheezing, rhonchi or rales. Musculoskeletal: Cervical back: Neck supple. Skin: General: Skin is warm and dry. Neurological: General: No focal deficit present. Mental Status: He is alert and oriented to person, place, and time. Psychiatric: Mood and Affect: Mood normal. Behavior: Behavior normal. Thought Content: Thought content normal. CARDIOVASCULAR MEDICINE TESTING: Electrocardiogram: Atrial fibrillation with controlled ventricular response, average 61 bpm; normal QRS duration 86 ms; QTc 446 ms I have personally reviewed the Electrocardiogram. 1. Paroxysmal atrial fibrillation (HCC) - ICD9: 427.31, ICD10: I48.0 (primary diagnosis) 2. At risk for stroke - ICD9: V15.89, ICD10: Z91.89 3. At risk for bleeding associated with anticoagulants - ICD9: V15.89, ICD10: Z91.89 4. History of lower GI bleeding - ICD9: V12.79, ICD10: Z87.19 5. Epistaxis - ICD9: 784.7, ICD10: R04.0 6. Bradycardia - ICD9: 427.89, ICD10: R00.1 7. Sinus node dysfunction (HCC) - ICD9: 427.81, ICD10: I49.5 8. Sinus bradycardia - ICD9: 427.89, ICD10: R00.1 9. Atherosclerosis of atka coronary 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 - ICD9: 414.01, ICD10: I25.10 10. Presence of stent in coronary artery - ICD9: V45.82, ICD10: Z95.5 11. Nonrheumatic aortic valve stenosis - ICD9: 424.1, ICD10: I35.0 12. Primary biliary cirrhosis (HCC) - ICD9: 571.6, ICD10: K74.3 13. Moderate mitral valve regurgitation - ICD9: 424.0, ICD10: I34.0 14. Moderate tricuspid valve regurgitation - ICD9: 397.0, ICD10: I07.1 CHADS2-Vasc Score Breakdown 5 Total Score 2 Age >= 75 years old 1 History of CHF 1 History of hypertension 1 History of vascular disease HAS-BLED score: 2 points (prior major bleeding, age > 65 years) MODIFIED HARSHAD SCORE: 2 = Slight disability: unable to carry out all previous activities but able to look after own affairs w/o assistance. IMPRESSION: 1. Paroxysmal atrial fibrillation (HCC) (I48.0) 2. At risk for stroke (Z91.89) 3. At risk for bleeding associated with anticoagulants (Z91.89) 4. History of lower GI bleeding (Z87.19) 5. Epistaxis (R04.0) 6. Bradycardia (R00.1) 7. Sinus node dysfunction (HCC) (I49.5) 8. Sinus bradycardia (R00.1) Atrial fibrillation is increasing in frequency and duration, with a 48-hour monitor showing 98% AFib burden and 4% PVCs. Patient is currently on Eliquis 5 mg BID for stroke prevention, but has a history of significant epistaxis and GI bleeding, raising concerns about the risk-benefit ratio of continued anticoagulation. Bradycardia has been documented as low as 27 bpm, although he reports this was measured by his Apple Watch so we need to consider that the measured rate by this device can result in falsely low readings during PVCs, the pulse deficit -- so might not truly represent that degree of bradycardia. There might be some degree of sinus node dysfunction however which would not be surprising in an elderly patient with atrial fibrillation and heart disease. - Discussed that atrial fibrillation catheter ablation is not indicated due to lack of bothersome symptoms and would not reduce stroke risk or prolong survival. - Discussed left atrial appendage closure such as Watchman device as an alternative to long-term anticoagulation; explained procedure, risks (including rare perforation, device dislodgement), and high success rate. I think from the procedure standpoint it would have very good risk:benefit --- similar to that of a coronary stent placement procedure. - Explained post-procedure anticoagulation/antiplatelet regimen: Eliquis plus low-dose aspirin or Plavix plus low-dose aspirin for 6 weeks, followed by Plavix and aspirin until 6 months, then low-dose aspirin alone. - Discussed need for pre-procedure CT scan to assess left atrial appendage anatomy, and 6-week post-procedure BOSSMAN to confirm device position and healing. The CT scan is important but could be deferred if he has severe issues with transportation. - Discussed that a pacemaker is not indicated at this time due to lack of severe symptoms attributable to bradycardia. - Provided educational materials and online resources regarding the Watchman device. - Patient to consider options and discuss with family; will notify if he wishes to proceed with Watchman procedure. - Will communicate with Dr. Schmidt and Dr. Mario regarding today's discussion and plan. 9. Atherosclerosis of atka coronary 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 (I25.10) 10. Presence of stent in coronary artery (Z95.5) History of CAD with LAD stenting in 2009 and 2016; NSTEMI in November 2023 treated medically after cath showed no severe stenosis. - Continue atorvastatin 20 mg daily. Management per Dr. Schmidt. 11. Primary biliary cirrhosis (HCC) (K74.3) Chronic condition managed with ursodiol 500 mg BID. - Continue ursodiol 500 mg BID. 12. Nonrheumatic aortic valve stenosis (I35.0) Moderate by echocardiogram recently. Managed by Dr. Schmidt 13. Moderate mitral valve regurgitation (I34.0) 14. Moderate tricuspid valve regurgitation (I07.1) Managed by Dr. Schmidt PLAN AND RECOMMENDATIONS: Considering Watchman left atrial appendage closure device as alternative to oral anticoagulation therapy. If Mr. Rust decides to proceed with Watchman device implant, which I suspect he will, then I will order the CT angiogram to evaluate the left atrial appendage morphology and dimensions --- this is a highly specialized CT angiogram that would need to be performed at [facility]. It is not critical to have the CT angiogram performed but can be very helpful for the planning of the procedure as well as excluding any issues that would not permit Watchman implant (such as the unlikely possibility of a left atrial appendage size or morphology that cannot be addressed with the Watchman device, or the presence of left atrial appendage thrombus). If due to transportation issues Mr. Rust cannot have the CT angiogram performed we could defer it and instead evaluate the left atrial appendage with the usual BOSSMAN that is performed at the time of the procedure. Also, if Mr. Rust decides to proceed with Watchman implant we would need a statement from Dr. Schmidt outlining the rationale for Watchman implant including the verbiage required by CMS/Medicare that includes documentation of the use of shared decision-making tool. From past experience, [facility] has a template of this verbiage or if no longer we can provide the template by email or facsimile. I had a detailed discussion with Mr. Rust and his , (and son and daughter by telephone speakerphone) regarding my evaluation and recommendations. After our discussion, Mr. Rust and his family members expressed understanding and I answered all questions to their apparent satisfaction.He will consider the option and get back to me sometime soon. INFORMED CONSENT (Watchman device implant) The risks, benefits and anticipated outcomes of the procedure, the risks and benefits of the alternatives to the procedure and the roles and tasks of the personnel to be involved were discussed with the patient. He will discuss with family and decide whether or not to proceed. Corina Nguyen MD 05/14/2025 Medical Decision Making: Problems: Moderate: New problem with uncertain prognosis Data: Unique source(s) for external note(s) reviewed: 3+ Unique test result(s) reviewed: 3+ Unique test(s) ordered: 1 Risk: Moderate: Moderate risk from testing/treatment, Drug management and Decision on minor surgery w/ risk factors Medical Decision Making Level: 4 - Moderate [1] Social History Tobacco Use Smoking status: Never Smokeless tobacco: Never Substance Use Topics Alcohol use: Yes Comment: rare Drug use: No documented in this encounter [facility] 05-14-2025 Note HNO ID: [id number] Author: CORINA NGUYEN MD Service: ? Author Type: Physician Type: Progress Notes Filed: 05/14/2025 17:30 Note Text: PRIMARY CARE PHYSICIAN: Addi Mario ([facility]) [address] [place] [address] REFERRING PHYSICIAN: Odalis Schmidt MD [address] [place] [address] Patient Care Team: Addi Mario MD as PCP - General (Internal Medicine) Gretchen Nguyen CNP as Nurse Practitioner (Internal Medicine) Odalis Schmidt as Specialty Oyster Washer (Cardiology) Recording using ambient [employer] software for draft documentation of the visit was discussed with the patient/authorized dermatology sales representative; all questions welcomed and answered. Patient/authorized dermatology sales representative agreed to proceed CHIEF COMPLAINT: Evaluation of arrhythmia HISTORY OF PRESENT ILLNESS: Mr. Rust is a 89 year old male who presents today for evaluation of management of atrial fibrillation and stroke risk. He is accompanied by his but also his son and daughter by telephone speaker phone. Patient Overview: Mr. Rust is referred for evaluation of atrial fibrillation by [facility]. The atrial fibrillation has been increasing in frequency and duration recently. He reports symptoms of fatigue, though he has a long-standing history of fatigue. He has also been found to have bradycardia. Records from [facility] indicate suspicion that the atrial fibrillation is not substantially symptomatic. There is concern about unfavorable risk to benefit for oral anticoagulation therapy. He was seen by Dr. Schmidt of [facility] on 03/21/2025. He has a complex cardiovascular history, including coronary artery disease with previous stenting of the LAD in 2009 and 2016. He had an NSTEMI in November 2023 and underwent cardiac catheterization that revealed no severe stenosis requiring intervention; he was treated medically. An echocardiogram at that time revealed mild left ventricular systolic dysfunction, LVEF 45%. In February 2025, the patient reported that his Apple Watch had identified atrial fibrillation. A 48-hour monitor was performed, and he was in atrial fibrillation 98% of the time, with PVCs about 4% burden. Medical records indicate the patient has no symptoms attributable to the atrial fibrillation, and the only way he knows he is in atrial fibrillation is by checking his Apple Watch. He has a history of primary biliary cirrhosis, GI bleeding, and nosebleeds. The more recent nosebleed required packing and electrocautery. He has been treated with Eliquis oral anticoagulation therapy for stroke prevention from the atrial fibrillation, but there seems to be unfavorable risks to benefit, given the bleeding. He has also been documented to have bradycardia down to 27 beats per minute, and there is concern that he also has sleep apnea. In addition to GI bleeding, he has chronic thrombocytopenia. Referral is made with the question of whether the patient should have treatment for the atrial fibrillation given the lack of symptoms and advanced age, and also whether he would be a candidate for Watchman left atrial appendage closure device. Noted in the medical records is sinus bradycardia, indicating some degree of sinus node dysfunction. Diagnostic Results: - Echocardiogram (04/02/2025): - Normal left ventricular size and systolic function - LVEF: 55% - Mild concentric LVH - Stage 1 diastolic dysfunction - Moderate biatrial dilation - Moderate mitral valve regurgitation - Moderate tricuspid valve regurgitation - Moderate aortic valve stenosis - 48-hour monitor (February 2025): - Atrial fibrillation: 98% of the time - PVCs: 4% burden Items for Follow-Up Today: - Evaluation of atrial fibrillation and its management - Consideration of Watchman left atrial appendage closure device candidacy The patient is an 89-year-old male with a history of CAD, status post LAD stenting in 2009 and 2016, NSTEMI in 11/2023, and primary biliary cirrhosis, presenting for evaluation of atrial fibrillation. The patient was referred by [facility] for evaluation of atrial fibrillation, which has been increasing in frequency and duration. He reports symptoms of fatigue, though he has a long-standing history of fatigue. He also experiences mild dyspnea when walking uphill. He denies palpitations, lightheadedness, or syncope. He has been found to have bradycardia, with heart rates documented as low as 27 bpm -- this was by his Apple Watch, so might have represented falsely low reading if he was having frequent PVCs at that time --- aka pulse deficit. There is concern for sleep apnea, but he has not yet undergone evaluation. In February 2025, his Apple Watch identified atrial fibrillation. A 48-hour monitor revealed atrial fibrillation 98% of the time and a PVC burden of 4%. Medical records indicate he has n (more content not included)... [facility] 03-17-2025 Discharge summary [facility] 03-10-2025 Discharge summary [facility] 03-10-2025 Radiology Diagnostic study note [facility] Imaging Services [address] [place] [address] [place] [address] Foot min 3 Views MR#: [id number] Acct: [id number] Name: JESSEE RUST Rep #: [id number] : 1935 M 89 From: Melody Younger MD PCP: Dr. Addi Mario MD Status: P RE ER Study:Foot min 3 Views Date of Exam: Exam# [id number] Ordering Dr: Marisol Meza PROCEDURE: FOOT MIN [...] is concern for ankle pathology. Reading Location: [facility] CC: Dr. Addi Mario MD; BASSEM Soria ~ Surgical Technology Instructor: Signed [facility] 03-10-2025 Discharge summary Note Date/Time March 10, 2025 5:19pm [facility] Medical Records Department [address] [place] [id number] Emergency Department Summary 03/10/25 MR#: [id number] Acct: [id number] Name: JESSEE RUST Rep #:[id number] : [...] on 1 foot while moving the oppositefoot [id number]. He is not of the exact mechanism of injury but reports that after performing these exercises he started to have pain in the right foot. He is able to ambulate but it is painful. He denies any other injury. [facility] <BASSEM Soria - Last Filed: 03/10/25 16:54> [facility] Medical History Bradycardia Immunity status testing Sore [...] Essential hypertension Atherosclerosis of coronary 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 Primary biliary cirrhosis Cholelithiasis without obstruction Hyperlipidemia Home Medications ?Medication ?Instructions ?Recorded ?Last Taken ?Type aspirin 81 mg tablet,delayed 81 mg PO DAILY@0800 Y'all 12/06/16 12/19/23 History release Held on 03/07/25. [...] ea 04/30/23 Unkn own Rx Nebulizer System) ywvgrhge-[id number] acid 0.4 1 tab PO DAILY supplement [...] hydrocortisone 2.5 % topical cream 1 applic [place] BID-QID PRN 01/04/24 Unknown Rx with perineal [...] 99 97 Oxygen Delivery Method Room Air MDM <BASSEM Soria - Last Filed: 03/10/25 16:54> [facility] Narrative Medical decision making narrative: Patient [...] is concern for ankle pathology. Reading Location: [facility] <Dr. Rolan Peña DO - Last Filed: 03/10/25 17:19> MDM [...] is concern for ankle pathology. Reading Location: [facility] Treatment and Re-Evaluation Narrative: Attending note: I [...] % cream with perineal applicator 1 applic [place] BID-QID PRN (Reason: hemorrhoids) Qty: 30 1RF [...] as needed for your pain. Print Language: Kosovan Disposition Disposition: Home, Self Care What to do if you have Problems For any increased pain, shortness of breath, bleeding, nausea or vomiting, chestpain, or any unexpected problems, contact your Primary Care Provider. Call [facility] ([phone]) or report to the closest Emergency Room. Call 911 if necessary. 03/10/25 1654 <Electronically signed by Marisol LUEVANO> Cosigner Signature (if applicable): 03/10/25 1719 <Electronically signed by Rolan Rubio> CC: Dr. Addi Mario MD ~ Signed [facility] Work Phone: 1(389) 458-370605-29-2025 Evaluation note* Diagnosis Onset Date Resolution Status Admit Date Asthma chronic February 14, 2025 2:05pm Atrial fibrillation chronic January 182024 2:05pm Debility chronic February 14, 2025 2:05pm Essential hypertension chronic Ma y 2024 2:05pm Hyperlipidemia chronic February 14, 2025 2:05pm Anemia chronic February 19, 2025 2:15pm Aortic stenosis chronic February 19, 2025 2:15pm Atherosclerosis of coronary 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 chronic February 19, 2025 2 :15pm CHF (congestive heart failure) chron ic February 19, 2025 2:15pm Hyperlipidemia chronic February 19, 2025 2:15pm Paroxysmal atrial fibrillation chron ic February 19, 2025 2:15pm Sinus bradycardia chronic February 2:15pm Bradycardia acute March 21 10:51am Aortic stenosis chronic March 21, 2025 10:51am Atherosclerosis of coronary 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 chronic March 21, 2025 1 0:51am Paroxysmal atrial fibrillation chron ic March 21, 2025 10:51am Chronic anticoagulation inactive J samara 2024 10:51am [facility] Work Phone: [phone]) 887-137905-29-2025 Evaluation note* Diagnosis Onset Date Resolution Status Admit Date Asthma chronic February 14, 2025 2:05pm Atrial fibrillation chronic January 182024 2:05pm Debility chronic February 14, 2025 2:05pm Essential hypertension chronic Ma y 2024 2:05pm Hyperlipidemia chronic February 14, 2025 2:05pm Anemia chronic February 19, 2025 2:15pm Aortic stenosis chronic February 19, 2025 2:15pm Atherosclerosis of coronary 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 chronic February 19, 2025 2 :15pm CHF (congestive heart failure) chron ic February 19, 2025 2:15pm Hyperlipidemia chronic February 19, 2025 2:15pm Paroxysmal atrial fibrillation chron ic February 19, 2025 2:15pm Sinus bradycardia chronic February 2:15pm Bradycardia acute March 21 10:51am Aortic stenosis chronic March 21, 2025 10:51am Atherosclerosis of coronary 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 chronic March 21, 2025 1 0:51am Paroxysmal atrial fibrillation chron ic March 21, 2025 10:51am Chronic anticoagulation inactive [facility] 2024 10:51am Lower leg edema acute April 1:44pm Right-sided nosebleed acute Apr 1:44pm [facility] Work Phone: 1([phone]) 128-917505-29-2025 Evaluation note* Diagnosis Onset Date Resolution Status Admit Date Asthma chronic February 14, 2025 2:05pm Atrial fibrillation chronic January 182024 2:05pm Debility chronic February 14, 2025 2:05pm Essential hypertension chronic Ma y 2024 2:05pm Hyperlipidemia chronic February 14, 2025 2:05pm Anemia chronic February 19, 2025 2:15pm Aortic stenosis chronic February 19, 2025 2:15pm Atherosclerosis of coronary 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 chronic February 19, 2025 2 :15pm CHF (congestive heart failure) chron ic February 19, 2025 2:15pm Hyperlipidemia chronic February 19, 2025 2:15pm Paroxysmal atrial fibrillation chron ic February 19, 2025 2:15pm Sinus bradycardia chronic February 2:15pm Bradycardia acute March 21 10:51am Aortic stenosis chronic March 21, 2025 10:51am Atherosclerosis of coronary 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 chronic March 21, 2025 1 0:51am Paroxysmal atrial fibrillation chron ic March 21, 2025 10:51am Chronic anticoagulation inactive J samara 2024 10:51am Lower leg edema acute April 1:44pm Right-sided nosebleed acute Apr ust 2024 1:44pm Bradycardia acute May 08, 2025 10:18am Chest pain acute May 08, 2 025 10:18am Light-headed feeling acute Augu st 2024 10:18am CHF (congestive heart failure) chron ic May 08, 2025 10:18am [facility] Work Phone: 1(471) 737-276904-28-2025 Instructions* Patient Instructions* Shawn Shea MD - 01/14/2025 3:00 PM EDT You will be dilated on your next visit. This will likely make your vision blurry for several hours, and you should strongly consider bringing a commercial driver. documented in this encounterBarney [facility]04-28-2025 History of Present illness Narrative* Shawn Shea MD - 01/14/2025 2:30 PM EDT New from [facility] Tmax: <22; Pachy: -, - Lasers and [...] of its relevant components. documented in this encounterBarney Children'S Medical Center04-28-2025 NoteHNO ID: [id number] Author: SHAWN SHEA MD Service: ? Author Type: Physician Type: Progress Notes Filed: 01/14/2025 15:00 Note Text: New from [facility] Tmax: <22; Pachy: -, - Lasers and [...] and agree with all of its relevant components.[facility]04-17-2025 Procedure note [facility] Speech Pathology [address] [place] [address] Modified Barium Swallow Study MR#: [id number] Acct: [id number] Name: JESSEE RUST Rep #:[id number] : 1935 89 From: Jodee Samayoa, [facility]-DIGITAL COORDINATOR Modified Barium Swallow Patient Information Study Date: [...] cup: Result: 1= does not enter airway Wilbur Thick Liquid via large single sip: cup: [...] Status Active ST Patient: Active Contact Information [facility] Speech Therapy:: Jodee Miller M.A. CCC-DIGITAL COORDINATOR? Speech-Language Pathologist?? [facility] [address] [place] [address]? [email or web address]?? [phone] 01/03/25 0823 ARMANI Smart-DIGITAL COORDINATOR> Date/Time Jodee Miller M.A., CCC-DIGITAL COORDINATOR Co-Signature Required for all Medicare patients Date/Time Co-Signature CC: ~ [facility]03-28-2025 Evaluation note* Diagnosis Onset Date Resolution Status Admit Date Asthma chronic December 14 1:29pm CHF (congestive [...] 2025 2:15pm Atherosclerosis of coronary 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 chronic February 19, 2025 2 :15pm CHF (congestive heart failure) chron ic February 19, 2025 2:15pm Hyperlipidemia chronic February 19, 2025 2:15pm Paroxysmal atrial fibrillation chron February 19, 2025 2:15pm Sinus bradycardia chronic February 2:15pm Bradycardia acute March 21 10:51am Aortic stenosis chronic March 21, 2025 10:51am Atherosclerosis of coronary 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 chronic March 21, 2025 1 0:51am Paroxysmal atrial fibrillation [facility] March 21, 2025 10:51am Chronic anticoagulation inactive J samara2024 10:51am [facility] Work Phone: 1(345) 902-157903-14-2025 Evaluation note* Diagnosis Onset Date Resolution Status [...] 2025 2:15pm Atherosclerosis of coronary 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 chronic February 19, 2025 2 :15pm CHF (congestive heart failure) chron ic February 19, 2025 2:15pm Hyperlipidemia chronic February 19, 2025 2:15pm Paroxysmal atrial fibrillation chron ic February 19, 2025 2:15pm Sinus bradycardia chronic February 2:15pm [facility] Work Phone: 1(960) 628-159703-11-2025 Telephone encounter Note* Telephone Encounter - Alexis [...] alternative measures Alexis Green MD Ophthalmology Resident [facility] Work Phone: [phone]) [phone] Miscellaneous Notes* Telephone Encounter - Alexis Green [...] Green MD Ophthalmology Resident documented in this encounterBarney Children'S Medical Center03-10-2025 Instructions* Patient Instructions* Shawn Shea MD - 11/26/2024 2:03 PM EDT You will be dilated on your next visit. This will likely make your vision blurry for several hours, and you should strongly consider bringing a commercial driver. Medication Eye # times daily Rocklatan (white cap) BOTH 1x daily (bedtime) Simbrinza (light green cap) BOTH 2x daily *please remember to wait at least 3 minutes between different drops in the same eye. 11/26/24 documented in this encounterBarney Children'S Medical Center03-10-2025 NoteDate of Procedure 11/26/2024. Anesthesiologist/Physician Information Newspaper Journalist: JOSÉ MANUEL. Start time: 1:44 PM. Stop time: 1:50 PM. NFL Interpretation Right Eye Diffuse loss. Left Eye Diffuse loss. Interval Change Right Eye Stable. Left Eye Worse.[id number] NoteHNO ID: [id number] Author: SHAWN SEHA MD Service: ? Author Type: Physician Type: Progress Notes Filed: 01/07/2025 12:24 Note Text: New from [facility] Tmax: <22; Pachy: -, - Lasers and Surgeries: OD: CEIOL OS: 11/2022 Selected laser trabeculoplasty (SLT) Selected laser trabeculoplasty (SLT) previous yrs CEIOL Ocular Medication Intol and Non-efficacy: Bradycardia = BB Now on alphagan 11/19, rocklatan 09/19 Next on simbrinza 2/2, rocklatan 1/ -HVF 07/2024 false negatives off OD central [...] and agree with all of its relevant components.[facility]03-10-2025 History of Present illness Narrative* Shawn Shea MD - 11/26/2024 1:58 PM EDT New from [facility] Tmax: <22; Pachy: -, - Lasers and [...] of its relevant components. documented in this encounterBarney Children'S Medical Center02-27-2025 Evaluation note* Diagnosis Onset Date Resolution Status Admit Date Swallowing disorder acute Febru saman 2024 3:01pm Anemia chronic November 15, 2024 3:01pm Asthma chronic November 15, 2024 3:01pm Essential hypertension chronic Fe bruary 2024 3:01pm Hyperlipidemia chronic October 212024 3:01pm Exposure to COVID-19 virus acute November 30, 2024 1:36pm Sore throat acute November 30, 1:36pm Asthma chronic December 14 1:29pm CHF [...] 2025 2:15pm Atherosclerosis of coronary 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 chronic February 19, 2025 2 :15pm CHF (congestive heart failure) chron ic February 19, 2025 2:15pm Hyperlipidemia chronic February 19, 2025 2:15pm Paroxysmal atrial fibrillation chron February 19, 2025 2:15pm Sinus bradycardia chronic February 2:15pm [facility] Work Phone: 1(282) 781-703002-04-2025 Evaluation note* Diagnosis Onset Date Resolution Status Admit Date Anemia chronic October 23, 2024 1:53pm Aortic stenosis chronic October 23, 2024 1:53pm Atherosclerosis of coronary 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 chronic October 23 1:53pm CHF (congestive heart failure) chron ic October 23, 2024 1:53pm Hyperlipidemia chronic October 232024 1:53pm Paroxysmal atrial fibrillation chron October 23, 2024 1:53pm Sinus bradycardia chronic 2024 1:53pm Swallowing disorder acute u 2024 3:01pm Anemia chronic November 15, 2024 3:01pm Asthma chronic November 15, 2024 3:01pm Essential hypertension chronic Fe 2024 3:01pm Hyperlipidemia chronic October 212024 3:01pm Exposure to COVID-19 virus acute November 30, 2024 1:36pm Sore throat acute November 30, 2 025 1:36pm Asthma chronic December 14 1:29pm CHF (congestive heart failure) [facility] December 14, 2024 1:29pm [facility] Work Phone: 1(258) 721-669002-04-2025 Evaluation note* Diagnosis Onset Date Resolution Status Admit Date Anemia chronic October 23, 2024 1:53pm Aortic stenosis chronic October 23, 2024 1:53pm Atherosclerosis of coronary 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 October 23 1:53pm CHF (congestive heart failure) chron October 23, 2024 1:53pm Hyperlipidemia chronic October 232024 1:53pm Paroxysmal atrial fibrillation chron October 23, 2024 1:53pm Sinus bradycardia chronic 2024 1:53pm Swallowing disorder acute 2024 3:01pm Anemia chronic November 15, 2024 3:01pm Asthma chronic November 15, 2024 3:01pm Essential hypertension chronic 2024 3:01pm Hyperlipidemia chronic October 212024 3:01pm Exposure to COVID-19 virus acute November 30, 2024 1:36pm Sore throat acute November 30, 2 025 1:36pm Asthma chronic December 14 1:29pm CHF (congestive heart failure) [facility] December 14, 2024 1:29pm Asthma chronic February 14, 2025 2:05pm Atrial fibrillation chronic January 182024 2:05pm Debility chronic February 14, 2025 2:05pm Essential hypertension chronic 2024 2:05pm Hyperlipidemia chronic February 14, 2025 2:05pm [facility] Work Phone: 1(160) 952-830602-04-2025 Evaluation note* Diagnosis Onset Date Resolution Status Admit Date Anemia chronic October 23, 2024 1:53pm Aortic stenosis chronic October 23, 2024 1:53pm Atherosclerosis of coronary 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 chronic October 23 [...] 2025 2:15pm Atherosclerosis of coronary 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 chronic February 19, 2025 2 :15pm CHF (congestive heart failure) chron ic February 19, 2025 2:15pm Hyperlipidemia chronic February 19, 2025 2:15pm Paroxysmal atrial fibrillation chron ic February 19, 2025 2:15pm Sinus bradycardia chronic February 2:15pm [facility] Work Phone: 1(122) 412-719001-15-2025 Telephone encounter Note* Telephone Encounter - Leesa Stratton - 10/03/2024 3:10 PM EST Images from the original note were not included. spoke to pt Shawn Shea MD You; Farhat Herrera MD16 minutes ago (2:52 PM) Restart alphagan three times a day both eyes [facility] Work Phone: 1(958) 220-128301-15-2025 Miscellaneous Notes* Telephone Encounter - Leesa Stratton [...] what should he do at this point? [phone] he was offered an appt on 10/08 at [facility] but he declined Shawn Shea MD filed at 07/30/2024 2:11 PM Status: Signed New from [facility] Tmax: <22; Pachy: -, - Lasers and [...] agree withall of it documented in this encounterBarney Children'S Medical Center01-15-2025 Telephone encounter Note * Telephone Encounter - Leesa Stratton - 10/03/2024 2:19 PM EST patient reporting that he has not been taking his alphagan since 08/12, he was on the med for 2 days and then developed OU conjunctivitis, he took medicine for that but never went back on the alphagan what should he do at this point? [phone] he was offered an appt on 10/08 at [facility] but he declined Shawn Shea MD filed at 07/30/2024 2:11 PM Status: Signed New from [facility] Tmax: <22; Pachy: -, - Lasers and [...] stated above and agree withall of it [facility]11-26-2024 NoteHNO ID: [id number] Author: PRIYA SALEH, CHRISTY Service: ? Author Type: MANAGER [employer] Type: Progress Notes Filed: 08/14/2024 10:07 Note [...] or as scheduled with Dr. Monse Saleh, OD August 14, 2024 10:03 [facility]11-26-2024 History of Present illness Narrative* Priya Saleh, [...] 14, 2024 10:03 AM documented in this encounterBarney Children'S Medical Center11-26-2024 Instructions* Patient Instructions* Priya Saleh, OD - 08/14/2024 9:22 AM EST Use PF Systane 5 minutes before each dose of Brimonidine Use Systane, Refresh or Blink gel nightly before bed in both eyes Use warm compresses daily documented in this encounterBarney Children'S Medical Center11-21-2024 Evaluation note* Diagnosis Onset Date Resolution Status Admit Date Bilateral conjunctivitis acute August 09, 2024 1:15pm Bilateral conjunctivitis acute August 15, 2024 2:19pm Anemia chronic August 15, 2024 2:19pm Essential hypertension chronic No vember 2023 2:19pm GERD (gastroesophageal reflu x disease) chronic August 15, 2 024 2:19pm Hyperlipidemia chronic July 212023 2:19pm Vitamin D deficiency chronic Nove er 2023 2:19pm Anemia chronic October 23, 2024 1:53pm Aortic stenosis chronic October 23, 2024 1:53pm Atherosclerosis of coronary 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 chronic October 23 1:53pm CHF (congestive heart failure) [facility] October 23, 2024 1:53pm Hyperlipidemia chronic October 232024 1:53pm Paroxysmal atrial fibrillation chron October 23, 2024 1:53pm Sinus bradycardia chronic ua y 2024 1:53pm Swallowing disorder acute Febru saman 2024 3:01pm Anemia chronic November 15, 2024 3:01pm Asthma chronic November 15, 2024 3:01pm Essential hypertension chronic Fe bruary 2024 3:01pm Hyperlipidemia chronic October 212024 3:01pm [facility] Work Phone: 1(692) 272-404911-11-2024 Instructions* Patient Instructions* Shawn Shea MD - 07/30/2024 2:10 PM EST You will be dilated on your next visit. This will likely make your vision blurry for several hours, and you should strongly consider bringing a commercial driver. documented in this encounterBarney Children'S Medical Center11-11-2024 NoteDate of Procedure 07/30/2024. Reliability Right Eye Poor. Left Eye Poor. Interpretation Right Eye Arcuate defect, Altitudinal defect, Central defect. Left Eye Arcuate defect, Altitudinal defect, Central defect.[id number] NoteHNO ID: [id number] Author: SHAWN SHEA MD Service: ? Author Type: Physician Type: Progress Notes Filed: 07/30/2024 14:11 Note Text: New from [facility] Tmax: <22; Pachy: -, - Lasers and [...] and agree with all of its relevant components.[facility]11-11-2024 History of Present illness Narrative* Shawn Shea MD - 07/30/2024 2:05 PM EST New from [facility] Tmax: <22; Pachy: -, - Lasers and [...] of its relevant components. documented in this encounterBarney Children'S Medical Center08-27-2024 Telephone encounter Note * Telephone Encounter - Joe MonroedeeptiMikaela - 05/15/2024 10:14 AM EDT He's calling [...] BB Now on alphagan /, rocklatan 09/19 -HVF 06/2023 OD [place] [...] # band K both eyes - stable [facility]08-27-2024 Miscellaneous Notes* Telephone Encounter - Joe Monroedeepti Mikaela - 05/15/2024 10:14 AM EDT He's [...] 03/12/2024 2:50 PM Status: Signed New from [facility] Tmax: <22; Pachy: -, - Lasers and [...] both eyes - stable documented in this encounterBarney Children'S Medical Center06-26-2024 Telephone encounter Note * Telephone Encounter - Lucina Friedman LSW - 03/14/2024 1:38 PM EDT supply service worker received a consult order from Dr. Shea who is referring the patient to the [facility] for low vision services. supply service worker called the patient and discussed the referral and sight center services. Patient states that the sight center is too far from [place], [place] and has requested to send him vision resources. supply service worker and patient discussed use of I-Phone and I-Pad vision accessibility for improved reading and using AI Kamala for additional assistance with reading information. Patient is very comfortable using assistive technology and prefers to the methods he is currently using for visual adaptations. Discussed at length [employer] videos for tech learning and other informationfrom various websites that would be helpful for the patient. BRANT provided education and information about the Independent Living Program through [employer] [place] ([facility]) and that can help the patient with the application and connection to an OOD counselor who could provide low vision assessment and adaptive visual aids from an in-home visit. Patient would like the information sent and will think about it and get back to this BRANT. supply service worker to email vision resources. Patient will reach out to SW as needed. Contact information provided. [facility]06-26-[facility]24 Miscellaneous Notes* Telephone Encounter - Lucina Friedman LSW - 03/14/2024 1:38 PM EDT supply service worker received a consult order from Dr. Shea who is referring the patient to the [facility] for low vision services. supply service worker called the patient and discussed the referral and sight center services. Patient states that the sight center is too far from [place], [place] and has requested SW to send him vision resources. supply service worker and patient discussed use of I-Phone and I-Pad vision accessibility for improved reading and using [employer] Kamala for additional assistance with reading information. Patient is very comfortable using assistive technology and prefers to the methods he is currently using for visual adaptations. Discussed at length [employer] videos for [employer] learning and other informationfrom various websites that [...] it and get back to this SW. supply service worker to email vision resources. Patient will reach out to as needed. Contact information provided. documented in this encounterBarney Children'S [facility] Center06-24-2024 Note* Addendum Note - Shawn Shea MD - 03/12/2024 2:52 PM EDTAddended by: SHAWN SHEA on: 03/12/2024 02:52 PM Modules accepted: Orders [facility]06-24-2024 Miscellaneous Notes* Addendum Note - Shawn Shea MD - 03/12/2024 2:52 PM EDTAddended by: SHAWN SHEA on: 03/12/2024 02:52 PM Modules accepted: Orders documented in this encounterBarney Children'S Medical Center06-24-2024 NoteDate of Procedure 03/12/2024. Anesthesiologist/Physician Information Newspaper Journalist: NOE. Start time: 2:37 PM. Stop time: 2:37 PM. NFL Interpretation Right Eye Diffuse loss. Left Eye Diffuse loss. Interval Change Right Eye Stable. 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 documented in this encounterBarney Children'S Medical Center06-24-2024 NoteHNO ID: [id number] Author: SHAWN SHEA MD Service: ? Author [...] and agree with all of its relevant components.[facility]06-22-2024 Telephone encounter Note* Telephone Encounter - Alexis Green MD - 03/10/2024 11:21 AM EDT Received page that patient had called. Spoke to them on the phone at 11:24 AM. Patient has a history of POAG follows with Dr. Shea Patient requesting med refills sent to [facility]. Refills sent Alexis Green MD Ophthalmology Resident [facility]06-22-2024 Miscellaneous Notes* Telephone Encounter - Alexis Green MD - 03/10/2024 11:21 AM EDT Received page that patient had called. Spoke to them on the phone at 11:24 AM. Patient has a history of POAG follows with Dr. Shea Patient requesting med refills sent to [facility] [employer] [facility]. Refills sent Alexis Green MD Ophthalmology Resident documented in this encounterBarney Children'S [facility] Center04-25-2024 Miscellaneous Notes* Telephone Encounter - Malu Elias COA - 01/12/2024 3:37 PM EDT Spoke with Marta from [facility] and advised her the drops are not duplicates and the patient does need to use both drops. * Telephone Encounter - Tania Beckett - 01/02/2024 12:26 PM EDT Marta from [facility] calling to let Dr. Shea that when she reconciled the patient's eye drops the computer showed them has duplicates. They are the brimonidine 0.01% drop and ROCKLATAN 0.02-0.005% ophthalmic solution. She believes they are the same. She can be reached at [phone]. documented in this encounterBarney Children'S Medical Center04-25-2024 Telephone encounter Note * Telephone Encounter - Malu Elias COA - 01/12/2024 3:37 PM EDT Spoke with Marta from [facility] and advised her the drops are not duplicates and the patient does need to use both drops. [facility]04-15-2024 Telephone encounter Note* Telephone Encounter - Tania Beckett - 01/02/2024 12:26 PM EDT Marat from [facility] calling to let Dr. Shea that when she reconciled the patient's eye drops the computer showed them has duplicates. They are the brimonidine 0.01% drop and ROCKLATAN 0.02-0.005% ophthalmic solution. She believes they are the same. She can be reached at [phone]. [facility]04-12-2024 Discharge summary Author Arsenio Mcgregor [facility] December 30, 2023 1:55pm Note Date/Time December 30, 2023 1:4 6pm [facility] Medical Records Department [address] [place] [address] Discharge Summary 12/30/23 1345 MR#: [id number] Acct: [id number] Name: JESSEE RUST Rep #:[id number] : 1935 88 From: Arsenio Mcgregor MD PCP: Dr. 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 Physical Exam Const alert General [...] / Lab / Microbiology Data 12/30/23 05:39 04/12/24 05:39 Laboratory: Laboratory Results - last 24 hr 12/30/23 05:39: WBC 8.0, RBC 3.30 L, Hgb 9.8 L, Hct 31.8 L, MCV 96.4 H, MCH 29.7, MCHC 30.8 L, RDW Std Deviation 55.5 H, RDW Coeff of Angelia 15.6 H, Plt Count 183, MPV 9.7, Immature Gran % (Auto) 0.600, Neut % (Auto) 44.5 L, Lymph % (Auto)35.0, Brule % (Auto) 13.6 H, Eos % (Auto) [...] pain Additional Instructions: Discharge home with 01/01/2024, [facility] PT/OT/RN. Please Follow Up With: Darien Lee MD When: As scheduled. Meaningful Use Info Meaningful Use Diagnoses (Choose all that apply): None applicable Discharge Plan Admission Admit Date/Time: 12/08/23 13:05 Primary Reason for Your Visit: Debility. Attending Provider: Arsenio Mcgregor Chi Primary Care Provider: Addi Mario Instructions Additional Instructions / Restrictions: Discharge home with 01/01/2024, [facility] PT/OT/RN. Discharge Orders/Prescriptions Prescriptions: New furosemide [...] can be placed): Home Health Service 12/30/23 3935 <Electronically signed by Arsenio Mcgregor MD> Cosigner Signature (if applicable): CC: Dr. Addi Mario MD; Dr. Arsenio Mcgregor MD~ Signed [facility] Work Phone: 1(807) 112-393104-03-2024 Discharge summary Author Darien Lee [facility] December 21, 2023 3:08pm Note Date/Time December 21, 2023 3:08 pm [facility] Medical Records Department [address] [place] [address] Instructions for Home/Discharge Instructions 12/21/23 1508 MR#: [id number] Acct: [id number] Name: YOCASTAJESSEE PEREZIR Rep #:[id number] : 1935 88 From: Darien Lee MD PCP: Dr. Addi Mario MD Status:R EG [facility] Discharge Instructions Diet Discharge Diet: No restrictions Activity Discharge Activity: Return to Normal Activity and May Not Drive (while taking narcotic pain medications.) Dressing / Incision Call your doctor if you observe: Fever of 101 or Higher Follow Up Care Please Follow Up With: Darien Lee MD When: Call [phone] for an appointment Test Results: Test results [...] CC: Dr. Addi Mario MD ~ Signed [facility] Work Phone: 1(615) 449-693204-03-2024 History and physical note Author Darien Lee [facility] December 21, 2023 3:08pm Note Date/Time December 21, 2023 3:08 pm [facility] Medical Records Department [address] [place] [id number] History & Physical Exam 12/21/23 1508 MR#: [id number] Acct: [id number] Name: JESSEE RUST Rep #:[id number] : 1935 88 From: Darien Lee MD PCP: Dr. 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 Darien Lee MD~ Signed [facility] Work Phone: 1(622) 597-523004-03-2024 Procedure [facility] 12-09-2023 Progress note Author Salome Childers [facility] December 09, 2023 12:05pm Note Date/Time December 09, 2023 11: 47am [facility] Medical Records Department [address] [facility] [place] [place] [address] Progress Note - Pharmacy 12/09/23 1135 MR#: [id number] Acct: [id number] Name: JESSEE RUST Rep #:[id number] : 1935 88 From: Salome Childers PCP: Dr. Addi Mario MD Status:A DM IN Location: TCU [place] [address] TCU RX Drug Regimen Review Subjective/Objective Subjective/Objective: [...] 15 Gm Tube TOPICAL 1 applic BID [facility] Administration Protocol Bisacodyl 10 mg 12/08/23 14:01 Bisacodyl 10 Mg Suppository RC DAILY PRN constipation Brimonidine Tartrate 1 ml 12/08/23 22:00 12/09/23 09:50 Brimonidine Tartrate 15 Ml Drops OPHTHALMIC 1 ml BID JOSE Administration Carvedilol 6.25 mg 12/08/23 17:00 12/09/23 09:48 Carvedilol 6.25 Mg Tablet PO 6.25 mg BIDCM [facility] Administration Protocol Cefdinir 300 mg 12/08/23 22:00 12/09/23 09:52 Cefdinir 300 Mg Capsule PO 12/13/23 10:01 300 mg BID [facility] Administration Cholecalciferol 50 mcg 12/09/23 10:00 12/09/23 09:55 Cholecalciferol (Vit D3) 25 Mcg Tablet (1,000 Units) PO 50 mcg DAILY [facility] Administration Compound Med 1 click 12/08/23 14:05 Arthritis Pain Compound 60 Click Tube TOPICAL DAILY PRN Pain Cyanocobalamin 1,000 mcg 12/09/23 10:00 12/09/23 09:55 Cyanocobalamin 500 Mcg Tablet PO 1,000 mcg DAILY [facility] Administration Ezetimibe 10 mg 12/09/23 10:00 12/09/23 09:55 Ezetimibe 10 Mg Tablet PO 10 mg DAILY [facility] Administration Famotidine 20 mg 12/09/23 10:00 12/09/23 09:52 Famotidine 20 Mg Tablet PO 20 mg DAILY [facility] Administration Ferrous Sulfate 325 mg 12/10/23 10:00 Ferrous Sulfate 325 Mg Tablet PO QODAY [facility] Finasteride 5 mg 12/09/23 10:00 12/09/23 09:53 Finasteride 5 Mg Tablet PO 5 mg DAILY [facility] Administration Furosemide 40 mg 12/09/23 10:00 12/09/23 09:51 Furosemide 40 Mg Tablet PO 40 mg DAILY [facility] Administration Protocol Guaifenesin 1,200 mg 12/08/23 22:00 12/09/23 09:52 Guaifenesin 1,200 Mg Tablet PO 1,200 mg 1000,2200 [facility] Administration Loratadine 10 mg 12/08/23 13:45 Loratadine 10 Mg Tablet PO DAILY PRN allergy Magnesium Chloride 128 mg 12/08/23 22:00 12/08/23 22:26 Magnesium Chloride 64 Mg Delay Rel.Tablet PO 128 mg QHS JOSE Administration Magnesium Citrate 300 ml 12/08/23 18:00 12/08/23 18:11 Magnesium Citrate 300 Ml PO 300 ml X1 JOSE Administration Multivitamins/Minerals 1 tablet 12/09/23 08:00 12/09/23 09:48 Multivitamins,Ther W-Minerals Tablet PO 1 tablet DAILYCM JOSE Administration Nitroglycerin 0.4 mg 12/08/23 14:04 Nitroglycerin [...] Senna/Docusate 1 tab PO BID, Dulcolax 10mg [place] Daily PRN, Magnesium Citrate 300mL PO x1. [...] a lipid panel done since 07/2022 per [employer] EMR review.If clinically indicated, please consider obtaining a lipid panel if clinically indicated, thank you. Date Date of Note:: 12/09/23 12/09/23 1205 <Electronically signed by Salome Childers> Salome Childers Cosigner Signature (if applicable): CC: ~ Signed [facility] Work Phone: 1(820) 181-396703-21-2024 History and physical note Author Arsenio Mcgregor [facility] December 08, 2023 6:00pm Note Date/Time December 08, 2023 5:3 9pm [facility] Medical Records Department [address] [place] [address] History & Physical Exam 12/08/23 1730 MR#: [id number] Acct: [id number] Name: JESSEE RUST Rep #:[id number] : 1935 88 From: Arsenio Mcgregor MD PCP: Dr. Addi Mario MD Status:A DM IN Location: [facility] [id number] HPI - General General Date of Admission: 12/08/23 Date of Service: 12/08/23 Chief Complaint: Here for rehabilitation. HPI Narrative 12/02/2023 JESSEE RUST, is a 88 Male who presents to [facility] ED with flank pain. Back [...] UTI. Rocephin/Zithromax for pneumonia. 12/02/2023 Admit to [facility]. Hold Eliquis, continue Heparin drip, [...] strengthening, prior to discharge home with . [facility] Medical History (Updated 12/08/23 @ 17:[address] 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 Arsenio Mcgregor MD~ Signed [facility] Work Phone: 1(797) 232-468703-20-2024 Progress note Author Klaudia Gonzales [facility] December 07, 2023 4:28pm Note Date/Time December 07, 2023 12: 40pm [facility] Medical Records Department [address] [place] [address] Progress Note 12/07/23 1238 MR#: [id number] Acct: [id number] Name: JESSEE RUST Rep #:[id number] : 1935 88 From: Klaudia Gonzales MD PCP: Dr. Addi Mario MD Status:A DM IN Location: [place] [address] Subjective Subjective Patient seen and examined. 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 Charges/Coding Visit Charges Inpatient E&M: 65859 Subs Hosp L2 12/07/23 1628 <Electronically signed by Klaudia Gonzales MD> Klaudia Gonzales MD Cosigner Signature (if applicable): CC: ~ Signed [facility] Work Phone: 1(403) 287-238803-20-2024 Procedure [facility] 12-07-2023 Progress note Author Vanessaleonardo Simmons [facility] December 07, 2023 11:50am Note Date/Time December 07, 2023 11: 50am [facility] Medical Records Department [address] [place] [address] Progress Note 12/07/23 1150 MR#: [id number] Acct: [id number] Name: YOCASTAJESSEE KATI Rep #:[id number] : 1935 88 From: Vanessa Simmons MD PCP: Dr. Addi Mario MD Status:A DM IN Location: [place] [address] Progress Note Notified that the patient had a run of nonsustained ventricular tachycardia. Patient asymptomatic. Check electrolytes and magnesium. Increase carvedilol to 6.25 mg twice daily. 12/07/23 1150 <Electronically signed by Vanessa Simmons MD> Vanessa Simmons MD Cosigner Signature (if applicable): CC: ~ Signed [facility] Work Phone: 1(101) 482-844103-19-2024 Consult note Author Darien Lee [facility] December 06, 2023 9:22pm Note Date/Time December 06, 2023 9:2 0pm [facility] Medical Records Department [address] [place] [address] Consultation - Urology 12/06/23 2118 MR#: [id number] Acct: [id number] Name: YOCASTAJESSEEARNULFO PARIKH Rep #:[id number] : 1935 88 From: Darien Lee MD PCP: Dr. Addi Mario MD Status:A DM IN Location: PCU [id number]- 1 Assessment & Plan Assessment/Plan (1) Ureteral calculi: [...] stone with obstruction. pt. is o/w stable. [facility] Medical History Advanced directives, counseling/discussion Anemia Anginal equivalent Aortic stenosis Asthma Atherosclerosis of coronary 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 Atrial fibrillation BPH [...] mg tablet,delayed release 81 mg PO DAILY@0800 [facility] 12/06/16 [History Last Taken 12/02/23] [...] #90 tabs 11/23/23 [Rx Last Taken 12/01/23] eoqkjebf-kyv-djdhh acid 0.4 mg-lycopene 300 mcg-lutein 250 mcg [...] (Auto) 68.0, Lymph % (Auto) 16.5 L, Brule % (Auto) 12.5 H, Eos % (Auto) [...] 19:20 EDT , 12/06/232121 <Electronically signed by Dairen Lee MD> Cosigner Signature (if applicable): CC: Dr. Vanessa Simmons MD; Dr. Addi Mario MD; Dr. Darien Lee MD;Dr. Miguelito Laguna MD~ Signed [facility] Work Phone: 1(751) 689-731203-19-2024 Progress note Author Sally [facility] December 06, 2023 8:07pm Note Date/Time December 06, 2023 8:0 7pm [facility] Medical Records Department [address] [place] [address] Progress Note - Hospitalist 12/06/232005 MR#: [id number] Acct: [id number] Name: JESSEE RUST Rep #:[id number] : 1935 88 From: Sally Zelaya MD PCP: Dr. Addi Mario MD Status:A DM IN Location: [facility] [id number]- [address] A/P w/ left lower [...] any concerns arise low threshold to involve sales and service consultant. 12/06/232006 <Electronically signed by Sally Zelaya MD> Cosigner Signature (if applicable): CC: ~ Signed [facility] Work Phone: 1(321) 835-776603-19-2024 Progress note Author [facility]udia [facility] December 06, 2023 3:37pm Note Date/Time December 06, 2023 3:3 7pm [facility] Medical Records Department [address] [place] [address] Progress Note 12/06/23 1529 MR#: [id number] Acct: [id number] Name: JESSEE RUST Rep #:[id number] : 1935 88 From: Klaudia Gonzales MD PCP: Dr. Addi Mario MD Status:A DM IN Location: [place] [address] Subjective Subjective Patient seen and examined. 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 Charges/Coding Visit Charges Inpatient E&M: 19631 Subs Hosp L2 12/06/23 1537 <Electronically signed by Klaudia Gonzales MD> Klaudia Gonzales MD Cosigner Signature (if applicable): CC: ~ Signed [facility] Work Phone: 1(388) 346-163003-19-2024 Progress note Author Vanessa Simmons [facility] December 06, 2023 12:18pm Note Date/Time December 06, 2023 12: 18pm [facility] Medical Records Department [address] [place] [address] Progress Note - Cardiology 12/06/23 1213 MR#: [id number] Acct: [id number] Name: JESSEE RUST Rep #:[id number] : 1935 88 From: Vanessa Simmons MD PCP: Dr. Addi Mario MD Status:A DM IN Location: [place] [address] Subjective Subjective Denies any complaints today. Sitting [...] (Auto) 68.0, Lymph % (Auto) 16.5 L, Brule % (Auto) 12.5 H, Eos % (Auto) [...] (Auto) 68.0, Lymph % (Auto) 16.5 L, Brule % (Auto) 12.5 H, Eos % (Auto) [...] Cosigner Signature (if applicable): CC: ~ Signed [facility] Work Phone: 1(306) 863-225003-18-2024 Progress note Author [facility] December 05, 2023 3:53pm Note Date/Time December 05, 2023 1:3 6pm [facility] Medical Records Department [address] [place] [address] Progress Note 12/05/23 1319 MR#: [id number] Acct: [id number] Name: JESSEE RUST Rep #:[id number] : 1935 88 From: Klaudia Gonzales MD PCP: Dr. Addi Mario MD Status:A DM IN Location: [place] [address]- Subjective Subjective Patient seen and examined today. 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 Charges/Coding Visit Charges Inpatient E&M: 63550 Subs Hosp L2 12/05/23 0893 <Electronically signed by Klaudia Gonzales MD> Klaudia Gonzales MD Cosigner Signature (if applicable): CC: ~ Signed [facility] Work Phone: 1(301) 144-924003-18-2024 Progress note Author Vanessa [facility] December 05, 2023 10:09am Note Date/Time December 05, 2023 10: 09am [facility] Medical Records Department [address] [place] [address] Progress Note 12/05/23 1009 MR#: [id number] Acct: [id number] Name: JESSEE RUST Rep #:[id number] : 1935 88 From: Vanessa Simmons MD PCP: Dr. Addi Mario MD Status:A DM IN Location: [place] [address] Progress Note Platelet count stable. Creatinine also stable. Recommend coronary angiography with possible revascularization. Risks benefits and alternatives explained to the patient. He understand these and wishes to proceed. 12/05/23 1009 <Electronically signed by Vanessa Simmons MD> Vanessa Simmons MD Cosigner Signature (if applicable): CC: ~ Signed [facility] Work Phone: 1(412) 538-950303-17-2024 Progress note Author Klaudia [facility] December 04, 2023 1:16pm Note Date/Time December 04, 2023 12: 55pm [facility] Medical Records Department [address] [place] [address] Progress Note 12/04/23 1254 MR#: [id number] Acct: [id number] Name: JESSEE RUST Rep #:[id number] : 1935 88 From: Klaudia Gonzales MD PCP: Dr. Addi Mario MD Status:A DM IN Location: [place] [address] Subjective Subjective Patient seen and examined. He [...] 78.9 H, Lymph % (Auto) 8.8 L, Brule % (Auto) 8.4, Eos % (Auto) 0.1, [...] to thrombocytopenia. Charges/Coding Visit Charges Inpatient E&M: 79946 Subs Hosp L3 12/04/23 1316 <Electronically signed by Klaudia Gonzales MD> Klaudia Gonzales MD Cosigner Signature (if applicable): CC: ~ Signed [facility] Work Phone: 1(250) [phone] Progress note Author Vanessa Simmons [facility] December 04, 2023 12:28pm Note Date/Time December 04, 2023 12: 28pm [facility] Medical Records Department [address] [place] [address] Progress Note - Cardiology 12/04/23 1226 MR#: [id number] Acct: [id number] Name: JESSEE RUST Rep #:[id number] : 1935 88 From: Vanessa Simmons MD PCP: Dr. Addi Mario MD Status:A DM IN Location: [place] [address] Subjective Subjective Feels better. No complaints. Objective [...] 835 Output Total 125 / 125 1 976 1275 / 1275 Balance 606 / [...] 78.9 H, Lymph % (Auto) 8.8 L, Brule % (Auto) 8.4, Eos % (Auto) 0.1, [...] 78.9 H, Lymph % (Auto) 8.8 L, Brule % (Auto) 8.4, Eos % (Auto) 0.1,Baso [...] Cosigner Signature (if applicable): CC: ~ Signed [facility] Work Phone: 1(873) 246-307903-16-2024 Progress note Author Klaudia [facility] December 03, 2023 4:37pm Note Date/Time December 03, 2023 4:3 7pm [facility] Medical Records Department [address] [place] [address] Progress Note 12/03/23 1623 MR#: [id number] Acct: [id number] Name: JESSEE RUST Rep #:[id number] : 1935 88 From: Klaudia Gonzales MD PCP: Dr. Addi Mario MD Status:A DM IN Location: [place] [address] Subjective Subjective Patient seen and examined. 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 12/02/23 13:30 Blood Culture (Wb) - Anticubital [...] heparin drip Charges/Coding Visit Charges Inpatient E&M: 47246 Subs Hosp L3 12/03/23 0954 <Electronically signed by Klaudia Gonzales MD> Klaudia Gonzales MD Cosigner Signature (if applicable): CC: ~ Signed [facility] Work Phone: [phone]) 555-395603-16-2024 Consult note Author Vanessa Simmons [facility] December 03, 2023 11:01am Note Date/Time December 03, 2023 10: 47am [facility] Medical Records Department [address] [place] [address] Consultation - Cardiology 12/03/23 1046 MR#: [id number] Acct: [id number] Name: JESSEE RUST Rep #:[id number] : 1935 88 From: Vanessa Simmons MD PCP: Dr. Addi Mario MD Status:A DM IN Location: [place] [address] Assessment & Plan Assessment/Plan (1) Non-STEMI (non-ST [...] troponins were also noted to be elevated. [facility] Medical History (Updated 12/03/23 @ 10:[address] Vanessa Simmons MD) Advanced directives, counseling/discussion Anemia Anginal equivalent Aortic stenosis Asthma Atherosclerosis of coronary 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 Atrial fibrillation BPH [...] mg tablet,delayed release 81 mg PO DAILY@0800 [facility] 12/06/16 [History Last Taken 12/02/23] [...] #90 tabs 11/23/23 [Rx Last Taken 12/01/23] fwpmfscr-giv-xyphv acid 0.4 mg-lycopene 300 mcg-lutein 250 mcg [...] 83.1 H, Lymph % (Auto) 11.5 L, Brule % (Auto) 4.1, Eos % (Auto) 0.5, [...] Sl. Cloudy, Urine pH 7.0, Ur Specific Huntly 1.010, Urine Protein 15 H, Urine Glucose [...] 81.4 H, Lymph % (Auto) 7.3 L, Brule % (Auto) 7.4, Eos % (Auto) 0.7, [...] 83.1 H, Lymph % (Auto) 11.5 L, Brule % (Auto) 4.1, Eos % (Auto) 0.5, [...] Sl. Cloudy, Urine pH 7.0, Ur Specific Huntly 1.010, Urine Protein 15 H, Urine Glucose (UA) Normal, Urine Ketones Negative, Urine Occult Blood 50 H, Urine Nitrite Negative, Urine Bilirubin Negative, Urine Urobilinogen Normal, Ur Leukocyte Esterase 100 H, Urine RBC 0-5 SEEN, Urine WBC 10-25 SEEN 12/02/23 15:04: pH 7.48 H, Bicarbonate Actual 24.6, Base Excess 1, O2 Rjcghnakco29 L, ABG pCO2 33.1 L, ABG pO2 [...] 81.4 H, Lymph % (Auto) 7.3 L, Brule % (Auto) 7.4, Eos % (Auto) 0.7, [...] Mario MD; Dr. Miguelito Laguna MD~ Signed [facility] Work Phone: 1(578) 977-208103-15-2024 History and physical note Author Miguelito Laguna [facility] December 02, 2023 6:15pm Note Date/Time December 02, 2023 5:4 5pm [facility] Medical Records Department [address] [place] [address] H&P Exam - Hospitalist 12/02/23 1741 MR#: [id number] Acct: [id number] Name: JESSEE RUST Rep #:[id number] : 1935 88 From: Miguelito gan MD PCP: Dr. Addi Mario MD Status:A DM IN Location: [place] [address] HPI - General General Date of Admission: [...] did notify cardiology about his potential non-STEMI. [facility] Medical History (Updated 12/02/23 @ 17:40 by Saumya Presley) Advanced directives, counseling/discussion Anemia Anginal equivalent Aortic stenosis Asthma Atherosclerosis of coronary 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 Atrial fibrillation BPH [...] tablet,delayed release 81 mg PO DAILY@0800 [facility] 12/06/16 [History Last Taken 12/02/23] travoprost 0.004 [...] #90 tabs 11/23/23 [Rx Last Taken 12/01/23] vtmygeqr-eky-gzchg acid 0.4 mg-lycopene 300 mcg-lutein 250 mcg [...] 83.1 H, Lymph % (Auto) 11.5 L, Brule % (Auto) 4.1, Eos % (Auto) 0.5, [...] Sl. Cloudy, Urine pH 7.0, Ur Specific Huntly 1.010, Urine Protein 15 H, Urine Glucose [...] Charbel Aguayo MD at 15:48 EDT , Assessment & Plan Assessment/Plan (1) Non-STEMI [...] with colleagues Charges/Coding Visit Charges Inpatient E&M: 06292 Init Hosp L3 12/02/231814 <Electronically signed by Miguelito Laguna MD> Cosigner Signature (if applicable): CC: Dr. Addi Mario MD; Dr. Miguelito Laguna MD~ Signed [facility] Work Phone: 1(315) 514-987703-15-2024 Discharge summary Author Antonio James [facility] December 02, 2023 5:58pm Note Date/Time December 02, 2023 1:1 2pm [facility] Medical Records Department [address] [place] [address] Emergency Department Summary 12/02/23 MR#: [id number] Acct: [id number] Name: JESSEE RUST Rep #:[id number] : 1935 88 From: Antonio Taylor PCP: Dr. Addi Mario MD Status:A DM IN Location: [address] History of Present Illness Chief Complaint: [...] bladder changes. Patient denies any saddle anesthesia. [facility] Medical History Advanced directives, counseling/discussion Anemia Anginal equivalent Aortic stenosis Asthma Atherosclerosis of coronary 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 BPH (benign prostatic [...] #90 tabs 11/23/23 [Rx Last Taken 12/01/23] fobxxntw-bhg-qglks acid 0.4 mg-lycopene 300 mcg-lutein 250 mcg [...] QTc interval was normal at 452 ms. [place] was borderline left axis deviation at -25. There are no acute ST or T wave changes noted. Prior EKG tracings: available for review Prior: Unchanged Management Discussion w/another healthcare provider: Hospitalist and Oyster Washer Treatment and Re-Evaluation :: On reevaluation, patient [...] (36), Including time spent:, Discussing w/Patient &/or Family/Bait Man, Discussing w/Consultants, Arranging Admission or Transfer and [...] DROP INTO EACH EYE AT BEDTIME (DME) Magda Brumfieldard See Rx Instructions .Route .MEDSUPPLY Qty: 1 [...] Provider] - Disposition Disposition: Acute Care Hospital [facility] What to do if you have Problems For any increased pain, shortness of breath, bleeding, nausea or vomiting, chestpain, or any unexpected problems, contact your Primary Care Provider. Call [facility] ([phone]) or report to the closest Emergency Room. Call 911 if necessary. 12/02/23 1758 <Electronically signed by Antonio James DO> Cosigner Signature (if applicable): CC: Dr. Addi Mario MD ~ Signed [facility] Work Phone: 1(488) 529-855302-19-2024 Miscellaneous Notes* Addendum Note - Shawn Shea MD - 11/07/2023 3:03 PM ESTAddended by: SHAWN SHEA on: 11/07/2023 03:03 PM Modules accepted: Orders documented in this encounterBarney [facility]02-19-20[facility] Instructions* Patient Instructions* Shawn Shea MD - 11/07/2023 2:56 PM EST You will be dilated on your next visit. This will likely make your vision blurry for several hours, and you should strongly consider bringing a commercial driver. documented in this encounterBarney [facility]02-19-2024 History of Present illness Narrative* Shawn Shea MD - 11/07/2023 2:52 PM EST New from [facility] Tmax: <22; Pachy: -, - Lasers and Surgeries: OD: CEIOL OS: 11/2022 Selected laser trabeculoplasty (SLT) Selected laser trabeculoplasty (SLT) previous yrs CEIOL Ocular Medication Intol and Non-efficacy: Bradycardia = BB Now on alphagan 10/21, rocklatan 09/19 -HVF 06/2023 OD [place] [...] components. Shawn Shea MD documented in this encounterBarney [facility] Center12-15-2023 Miscellaneous Notes* Telephone Encounter - [...] sensitive to the light outside. Spoke with Zaida second floor appt desk found appt in [facility] for him on 09-06. * Telephone Encounter [...] 07/04/2023 2:28 PM Status: Signed New from [facility] Tmax: <22; Pachy: -, - Lasers and [...] both eyes - stable documented in this encounterBarney [facility] Center10-16-2023 History of Present illness Narrative* Shawn Shea MD - 07/04/2023 3:45 PM EDT New from [facility] Tmax: <22; Pachy: -, - Lasers and [...] components. Shawn Shea MD documented in this encounterBarney [facility]09-13-2023 History of Present illness Narrative* Shawn Shea MD - 06/01/2023 1:35 PM EDT New from [facility] Tmax: <22; Pachy: -, - Lasers and Surgeries: OD: CEIOL OS: 11/2022 Selected laser trabeculoplasty (SLT) Selected laser trabeculoplasty (SLT) previous yrs CEIOL Ocular Medication Intol and Non-efficacy: Bradycardia = BB Now on alphagan 10/21, rocklatan 09/19 -HVF - OD OS -OCT [...] components. Shawn Shea MD documented in this encounterBarney [facility] Center08-04-2023 Discharge summary Author Heber Miranda [facility] April 22, 2023 10:17pm Note Date/Time April 22, 2023 8:4 7pm [facility] Medical Records Department [address] [place] [address] Emergency Department Summary 04/22/23 MR#: [id number] Acct: [id number] Name: JESSEE RUST Rep #:[id number] : [...] chest pain, abdominal pain, nausea, and vomiting. [facility] <BASSEM Soria - Last Filed: 04/22/23 22:01> [facility] Medical History Advanced directives, counseling/discussion Anemia Anginal equivalent Aortic stenosis Asthma Atherosclerosis of coronary 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 BPH (benign prostatic [...] <BASSEM Soria - Last Filed: 04/22/23 22:01> [facility] Narrative Medical decision making narrative: Patient [...] 21:08 IMPRESSION: Mild basilar atelectasis. Electronically Signed: Mehrantaylor Apple DO at 21:22 EDT , <Dr. Heber Miranda MD - Last Filed: 04/22/23 22:17> [facility] MDM Narrative Medical decision making narrative: Patient presenting [...] Signed: Mehran Apple DO at 21:22 EDT , Treatment and Re-Evaluation :: I have [...] drop into both eyes twice a day crescencio EACH EYE erythromycin 5 mg/gram (0.5 %) [...] your Primary Care Provider. Call [facility] ([phone]) or report to the closest Emergency Room. Call 911 if necessary. 04/22/232200 <Electronically signed by Marisol LUEVANO> Cosigner Signature (if applicable): 04/22/232216 <Electronically signed by Heber Miranda MD> CC: Dr. Addi Mario MD ~ Signed [facility] Work Phone: 1(237) 319-505007-03-2023 Discharge summary Author Washington Pepper [facility] March 21, 2023 10:46pm Note Date/Time March 21, 2023 10:44 pm [facility] Medical Records Department [address] [place] [address] Emergency Department Summary 03/21/23 MR#: [id number] Acct: [id number] Name: JESSEE RUST Rep #:[id number] : 1935 88 From: Washington Taylor PCP: Dr. Addi Mario MD Status:R EG ER Location: ED HPI History of Present Illness Chief Complaint: Nosebleed [facility] Medical History Advanced directives, counseling/discussion Anemia Anginal equivalent Aortic stenosis Asthma Atherosclerosis of coronary 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 BPH (benign prostatic [...] Ox 97 Oxygen Delivery Method Room Air MDM MDM MDM Narrative Medical decision making narrative: HISTORY [...] noted MEDICAL DECISION MAKING: Chief Complaint: Epistaxis [facility] Narrative: Patient was hemodynamically stable, afebrile, nontoxic-appearing. [...] your Primary Care Provider. Call [facility] ([phone]) or report to the closest Emergency Room. Call 911 if necessary. 03/21/239 <Electronically signed by Washington Pepper DO> Cosigner Signature (if applicable): CC: Dr. Addi Mario MD ~ Signed [facility] Work Phone: 1(475) 434-768107-03-2023 Hospital Discharge instructions Additional Instructions Thank you [...] care physician for further outpatient evaluation and management.[facility] Work Phone: 1(846) 108-385206-24-[address] Ferrera [facility] March 12, 2023 2:45pm Note Date/Time March 12, 2023 1:29 pm [facility] Medical Records Department [address] [place] [address] Emergency Department Summary 03/12/23 MR#: [id number] Acct: [id number] Name: JESSEE RUST Rep #:[id number] : [...] palpitations. At this time he is asymptomatic. [facility] Medical History Advanced directives, counseling/discussion Anemia Anginal equivalent Aortic stenosis Asthma Atherosclerosis of coronary 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 BPH (benign prostatic [...] I advised close outpatient follow-up with his health unit coordinator after the weekend he is comfortable with [...] % (Auto) 51.9 Lymph % (Auto) 32.4 Brule % (Auto) 11.6 H Eos % (Auto) [...] your Primary Care Provider. Call [facility] ([phone]) or report to the closest Emergency Room. Call 911 if necessary. 03/12/23 1445 <Electronically signed by Javier Ferrera MD> Cosigner Signature (if applicable): CC: Dr. John Cool MD; Dr. Addi Mario MD ~ Signed [facility] Work Phone: [phone]) 457-353004-05-2016 History of Past illness Narrative* Problem Noted [...] of this encounter (statuses as of 07/12/2022) [facility]04-05[facility]2016 History of Past illness Narrative* [...] of this encounter (statuses as of 06/01/2023) [facility] History of Past illness Narrative* [...] of this encounter (statuses as of 07/05/2023) [facility] History of Past illness Narrative* [...] of this encounter (statuses as of 09/03/2023) [facility] History of Past illness Narrative* [...] of this encounter (statuses as of 11/07/2023) [facility] Salome Childers [facility] December 08, 2023 11:03am Note Date/Time December 08, 2023 11: 03am [facility] Medical Records Department [address] [place] [address] Counseling Note - Pharmacy 12/08/23 1102 MR#: [id number] Acct: [id number] Name: JESSEE RUST Rep #:[id number] : 1935 88 From: Salome Childers PCP: Dr. Addi Mario MD Status:A DM IN Y Location: [place] [address] Pharmacy IN Med Reconciliation Pharmacy Service has performed discharge [...] 325 mg PO QODAY #90 tabs 11/23/23 fxltlbmx-rat-qusuv acid 0.4 mg-lycopene 300 mcg-lutein 250 mcg tablet (Centrum Silver) 1 tab PO DAILY 12/02/23 netarsudil 0.02 %-latanoprost 0.005 % eye drops (Rocklatan) 1 drp ophthalmic (eye) QHS 12/02/23 cefdinir 300 mg capsule 300 mg PO BID #10 caps 12/08/23 12/08/23 1103 <Electronically signed by Salome Childers > Date _ Salome Childers Cosigner Signature (if applicable): Date CC: ~ Signed [facility] Work Phone: Discharge summary [facility] 08, 2023 10:47am Note Date/Time December 08, 2023 10: 47am [facility] Medical Records Department [address] [place] [address] Transfer to Extended Care MR#: [id number] Acct: [id number] Name: JESSEE RUST Rep #:[id number] : 1935 88 From: Klaudia Gonzales MD PCP: Dr. Addi Mario MD Status:A DM IN Certification of patient admission REQUIRED AT TIME OF ADMISSION. I CERTIFY THAT POST-HOSPITAL ECF SERVICES ARE REQUIRED TO BE GIVEN ON AN IN-PATIENT BASIS BECAUSE OF THE ABOVE NAMED PATIENT'S NEED FOR CUSTODIAL CARE ON A CONTINUING BASIS FOR THE CONDITION(S) FOR WHICH HE/SHE WAS RECEIVING IN-PATIENT HOSPITAL SERVICES PRIOR TO HIS/HER TRANSFER TO THE ECF. 12/08/23 1047<Electronically signed by Klaudia Gonzales MD> [...] for Your Visit: nonstemi Attending Provider: Klaudia Gonzalse Primary Care Provider: Addi Mario Consulting Providers: Vanessa Simmons; Miguelito Laguna Juan Miguel Instructions Patient Instructions: First Aid: Heart Attacks, [...] in before D/C Order can be placed): [facility] 12/08/23 1047 <Electronically signed by Klaudia Gonzales MD> Cosigner Signature (if applicable): CC: Dr. Vanessa Simmons MD; Dr. Addi Mario MD; Dr. Darien Lee MD;Dr. Miguelito Laguna MD ~ [facility] Work Phone: Discharge summary Author [facility] Note Date/Time March 17, 2025 7:01 am [facility] Medical Records Department [address] [place] [address] Emergency Department Summary 03/17/25 MR#: [id number] Acct: [id number] Name: JESSEE RUST Rep #:[id number] : [...] secondary to this he presents for evaluation. [facility] Medical History Bradycardia Immunity status testing Sore [...] Essential hypertension Atherosclerosis of coronary 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 Primary biliary cirrhosis Cholelithiasis without obstruction Hyperlipidemia Home Medications ?Medication ?Instructions ?Recorded ?Last Taken ?Type aspirin 81 mg tablet,delayed 81 mg PO DAILY@0800 [facility] 12/06/16 12/19/23 History release Held on 03/07/25. [...] ea 04/30/23 Unkn own Rx Nebulizer System) uclzoscz-waw-gjsom acid 0.4 1 tab PO DAILY supplement [...] Hyperlipidemia, Chronic atrial fibrillation, Current use of usp anticoagulation Instructions: ED Epistaxis (Adult) Prescriptions: No [...] you have any further concerns Print Language: Kosovan Disposition Disposition: Home, Self Care What to do if you have Problems For any increased pain, shortness of breath, bleeding, nausea or vomiting, chestpain, or any unexpected problems, contact your Primary Care Provider. Call [facility] ([phone]) or report to the closest Emergency Room. Call 911 if necessary. 03/17/25 0701 <Electronically signed by Hai Rand DO> Cosigner Signature (if applicable): CC: Dr. Addi Mario MD ~ Signed [facility] Work Phone: Evaluation note* Diagnosis Onset Date Resolution Status Atherosclerosis of coronary 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 chronic Bradycardia chronic Presence of stent in coronary artery chronic Obesity acute Restrictive airway disease a cute Asthma chronic Vitamin D deficiency acute Asthma chronic BPH (benign prostatic hyperplasia) chronic Dizziness chronic Essential hypertension chron ic Iron deficiency anemia chron ic Asthma chronic New onset atrial fibrillation acute Atherosclerosis of coronary 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 chronic Hyperlipidemia chronic [facility] Work Phone: Evaluation note* Diagnosis Onset Date Resolution Status Obesity acute Restrictive airway disease a cute Asthma chronic BPH (benign prostatic hyperplasia) chronic Essential hypertension chron ic Hyperlipidemia chronic Memory impairment chronic Physical debility [facility] Work Phone: Evaluation note* Diagnosis Onset Date Resolution Status BPH (benign prostatic hyperplasia) chronic Essential hypertension chron ic Hyperlipidemia chronic Memory impairment chronic Physical debility chronic Hypertension [facility] Work Phone: Evaluation note* Diagnosis Onset Date Resolution Status Essential hypertension chron ic Hyperlipidemia chronic Memory impairment chronic Aortic stenosis chronic Atherosclerosis of coronary 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 chronic Essential hypertension chron ic Hyperlipidemia chronic New onset atrial fibrillation [facility] Work Phone: Evaluation note* Diagnosis Onset Date Resolution Status Aortic stenosis chronic Atherosclerosis of coronary 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 chronic Essential hypertension chron ic Hyperlipidemia chronic New onset atrial fibrillation chronic Asthma chronic Advanced directives, counseling/discussion acute Essential hypertension chron ic Glaucoma chronic Hyperlipidemia chronic Memory impairment [facility] Work Phone: Evaluation note* Diagnosis Onset Date Resolution Status Advanced directives, counseling/discussion acute Essential hypertension chron ic Glaucoma chronic Hyperlipidemia chronic Memory impairment chronic Extensor tenosynovitis of right wrist acute [facility] Work Phone: Evaluation note* Diagnosis Onset Date Resolution Status Advanced directives, counseling/discussion acute Essential hypertension chron ic Glaucoma chronic Hyperlipidemia chronic Memory impairment chronic Extensor tenosynovitis of right wrist acute Essential hypertension chron ic Glaucoma chronic Psoriasis chronic Thrombocytopenia chronic Aortic stenosis chronic Atherosclerosis of coronary 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 chronic Essential hypertension chron ic Hyperlipidemia chronic New onset atrial fibrillation chronic [facility] Work Phone: Evaluation note* Diagnosis Onset Date Resolution Status Extensor tenosynovitis of right wrist acute Essential hypertension chron ic Glaucoma chronic Psoriasis chronic Thrombocytopenia chronic Aortic stenosis chronic Atherosclerosis of coronary 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 chronic Essential hypertension chron ic Hyperlipidemia chronic New onset atrial fibrillation chronic COVID-19 acute Asthma chronic Essential hypertension chron ic Hyperlipidemia chronic [facility] Work Phone: Evaluation note* Diagnosis Primary open angle glaucoma (POAG) of both eyes, severe stage- Primary Epiretinal membrane (ERM) of left eye Band keratopathy, bilateral [facility] Diagnosis Primary open angle glaucoma (POAG) of both eyes, severe stage [facility] Diagnosis Primary open angle glaucoma (POAG) of both eyes, severe stage- Primary [facility] Diagnosis Onset Date Resolution Status Asthma chronic Essential hypertension chron ic Hyperlipidemia chronic Memory impairment chronic COVID-19 acute Aortic stenosis chronic Atherosclerosis of coronary 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 chronic Hyperlipidemia chronic Sinus bradycardia chronic Non-STEMI (non-ST elevated myocardial infarction) acute Sepsis acute Urinary tract infection acut e [facility] Work Phone: Evaluation note* Diagnosis Onset Date Resolution Status Asthma chronic Essential hypertension chron ic Hyperlipidemia chronic Memory impairment chronic COVID-19 acute Paroxysmal atrial fibrillation acute Aortic stenosis chronic Atherosclerosis of coronary 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 chronic Hyperlipidemia chronic Sinus bradycardia chronic Acute kidney injury acute Cardiomyopathy acute Mitral regurgitation acute Non-STEMI (non-ST elevated myocardial infarction) acute Paroxysmal atrial fibrillation acute Sepsis acute Ureteral calculi acute Urinary tract infection acut e Aortic stenosis chronic Hyperlipidemia chronic Primary biliary cirrhosis ch ronic Thrombocytopenia chronic [facility] Work Phone: Evaluation note* Diagnosis Onset Date Resolution Status COVID-19 acute Aortic stenosis chronic Atherosclerosis of coronary 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 chronic Paroxysmal atrial fibrillation chronic Sinus bradycardia chronic Aortic stenosis chronic Paroxysmal atrial fibrillation chronic Acute kidney injury resolved Urinary tract infection reso lved Allergic rhinitis acute Atrial fibrillation acute BPH (benign prostatic hyperplasia) acute Debility acute Encephalopathy acute GERD (gastroesophageal reflux disease) acute Pneumonia acute Primary biliary cirrhosis [place] Right ureteral stone acute Asthma chronic Glaucoma chronic Urinary tract infection reso lved Aortic stenosis chronic Atherosclerosis of coronary 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 chronic Paroxysmal atrial fibrillation chronic Sinus bradycardia chronic [facility] Work Phone: Evaluation note* Diagnosis Primary open angle glaucoma (POAG) of both eyes, severe stage [facility] Primary open angle glaucoma (POAG) of both eyes, severe stage [facility] Diagnosis Redness of both eyes- Primary Primary open angle glaucoma (POAG) of both eyes, 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 Epiretinal membrane (ERM) of left eye Band keratopathy, bilateral [facility] Diagnosis Paroxysmal atrial fibrillation (HCC)- Primary Atrial fibrillation At risk for stroke Other specified personal history presenting hazards to health At risk for bleeding associated with anticoagulants History of lower GI bleeding Personal history of other diseases of digestive system Epistaxis Bradycardia Other specified cardiac dysrhythmias Sinus node dysfunction (HCC) Sinoatrial node dysfunction Sinus bradycardia Other specified cardiac dysrhythmias Atherosclerosis of atka coronary 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 Presence of stent in coronary artery Postsurgical percutaneous transluminal coronary angioplasty status Nonrheumatic aortic valve stenosis Aortic valve disorders Primary biliary cirrhosis (HCC) Biliary cirrhosis Moderate mitral valve regurgitation Moderate tricuspid valve regurgitation [facility] Additional Instructions Right lower gingival bleeding controlled with TXA. Platelets 115. Discussed with cardiology may hold your baby aspirin and Eliquis. soft foods. Soft toothbrush avoid brushing the right lower teeth area at this time. Follow-up with your doctors. Return if any worsening symptoms.[facility] Work Phone: Hospital Discharge instructions Additional Instructions Follow-up with your PCP in 1 week if no improvement of your pain, ice the area, elevate to help with swelling, return for any other concerns. Take Tylenol as needed for your pain. [facility] Work Phone: Hospital Discharge instructionsAdditional Instructions Please hold your Eliquis for the next 3 days. Follow-up with Dr. Rainey/ENT for repeat evaluation and do not remove your packing until you are evaluated by him. Return to the ER should you have any further [facility] Work Phone: Hospital Discharge instructionsAdditional Instructions Hold your Eliquis. No aspirin at this time either. Call and follow-up with Dr. Arian Rainey for further evaluation. Packing can come out in 3 days. If rebleeds and unable to stop with 30 minutes of pinching your nose direct pressure return.[facility] Work Phone: Reason for referral (narrative)No reason for referral information availableWSCCI [facility] Work Phone: Chief Complaint and Reason for Visit Chief Complaint AORTIC STENOSIS/SOB AORTIC STENOSIS/SOB 6 MO F/U (NN PT) Hospital FU 2 M FU BP CK, BROUGHT CUFF 6 wk FU LEFT KNEE xray NN PT ? new onset atrial fib per MMM/L.[place] E ORDERS Reason for Visit Atherosclerosis of c oronary 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 Bradycardia Presence of stent in coronary artery Obesity Restrictive airway disease Asthma Vitamin D deficiency Asthma BPH (benign prostatic hyperplasia) Dizziness Essential hypertension Iron deficiency anemia Asthma New onset atrial fibrillation Atherosclerosis of coronary 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 Hyperlipidemia Chief Complaint 6 MO F/U (NN PT) Hospital FU 2 M FU BP CK, BROUGHT CUFF 6 wk FU LEFT KNEE xray NN PT ? 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 Hyperlipidemia Chief Complaint [...] Complaint 5 M FU E ORDER [facility] ER FU EORDERS BP CHECK Reason for Visit BPH (benign prostati c hyperplasia) Essential hypertension Hyperlipidemia Memory impairment Physical debility Hypertension Chief Complaint 5 M FU E ORDER gi [facility] ER FU EORDERS BP CHECK 9 M FU (NN PT SWITCHING TO JUNIOR BOOKKEEPER) MURMUR Reason for Visit Essential hypertensi on Hyperlipidemia Memory impairment Aortic stenosis Atherosclerosis of coronary 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 Essential hypertension Hyperlipidemia New onset atrial fibrillation Chief Complaint 9 M FU (NN PT SWITCH ING TO JUNIOR BOOKKEEPER) MURMUR 6 M FU 5 M FU RT WRIST Reason for Visit Aortic stenosis Atherosclerosis of coronary 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 FIB [facility]BLEED [facility] FU nosebleed 6 M FU COUGH Reason for Visit Advanced directives, counseling/discussion Essential hypertension Glaucoma Hyperlipidemia Memory impairment Extensor tenosynovitis of right wrist Essential hypertension Glaucoma Psoriasis Thrombocytopenia Aortic stenosis Atherosclerosis of coronary 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 Essential hypertension Hyperlipidemia New onset atrial fibrillation Chief Complaint RT WRIST RIGHT WRIST A. FIB [facility]BLEED [facility] FU nosebleed 6 M FU COUGH [facility] FU - COVID DAY 7 CHEST XRAY Reason for Visit Extensor tenosynovit is of right wrist Essential hypertension Glaucoma Psoriasis Thrombocytopenia Aortic stenosis Atherosclerosis of coronary 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 Essential hypertension Hyperlipidemia New onset atrial fibrillation COVID-19 Asthma Essential hypertension Hyperlipidemia Chief Complaint 5 M FU Bradycardia, unspecified FU PER MH SEE CLINICAL NOTE NSTEMI, UTI, SEPSIS Reason for Visit Asthma Essential hypertension Hyperlipidemia Memory impairment COVID-19 Aortic stenosis Atherosclerosis of coronary 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 Hyperlipidemia Sinus bradycardia [...] Aortic stenosis Atherosclerosis of coronary 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 Hyperlipidemia Sinus bradycardia [...] N STEMI WITH UTI & PNEUMONIA S/P [facility] 12/11 Reason for Visit COVID-19 Aortic stenosis Atherosclerosis of coronary 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 Paroxysmal atrial fibrillation Sinus bradycardia Aortic stenosis Paroxysmal atrial fibrillation Acute kidney injury Urinary tract infection Allergic rhinitis Atrial fibrillation BPH (benign prostatic hyperplasia) Debility Encephalopathy GERD (gastroesophageal reflux disease) Pneumonia Primary biliary cirrhosis Right ureteral stone Asthma Glaucoma Urinary tract infection Aortic stenosis Atherosclerosis of coronary 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 Paroxysmal atrial fibrillation [...] 1 :53pm Atherosclerosis of coronary 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 October 23, 2024 [...] 1 :53pm Atherosclerosis of coronary 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 October 23, 2024 [...] 1 :53pm Atherosclerosis of coronary 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 October 23, 2024 [...] 1 :53pm Atherosclerosis of coronary 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 October 23, 2024 [...] 2:15p m Atherosclerosis of coronary 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 February 19, 2025 [...] 2:15p m Atherosclerosis of coronary 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 February 19, 2025 [...] m Back in a-fib, see clinical notes eDvyn more 2024 2:15pm AFIB March 05, 2025 10:4 [...] 2:15p m Atherosclerosis of coronary 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 February 19, 2025 [...] see clinical notes Devyn more 2024 2:15pm AFIB March 05, 2025 10:4 8am Atrial fibrillation March 05, 2025 11:0 4am E-ORDER March 07, 2025 1:34 pm ANKLE March 10, 2025 4:05 pm nosebleed March 17, 2025 5:40 am NOSE BLEED March 17, 2025 1:52 pm Chief Complaint Admit Date covid test November 30, 2024 1:3 6pm 6 M FU December 14, 2024 1:2 9pm SWALLOWING CONCERNS January 02, 2025 12: 43pm 3 M FU February 14, 2025 2:05p m Back in a-fib, see clinical notes Devyn more 2024 2:15pm AFIB March 05, 2025 10:4 8am Atrial fibrillation March 05, 2025 11:0 4am E-ORDER March 07, 2025 1:34 pm ANKLE March 10, 2025 4:05 pm nosebleed March 17, 2025 5:40 am NOSE BLEED March 17, 2025 1:52 pm See Note March 21, 2025 10:51 am Chief Complaint Admit Date 6 M FU December 14, 2024 1:2 9pm SWALLOWING CONCERNS January 02, 2025 12: 43pm 3 M FU February 14, 2025 2:05p m Back in a-fib, see clinical notes Devyn more 2024 2:15pm AFIB March 05, 2025 10:4 8am Atrial fibrillation March 05, 2025 11:0 4am E-ORDER March 07, 2025 1:34 pm ANKLE March 10, 2025 4:05 pm nosebleed March 17, 2025 5:40 am NOSE BLEED March 17, 2025 1:52 pm See Note March 21, 2025 10:51 am ( TECH NEED MORE VIEW) April 02, 2025 3 :47pm Reason for Visit Admit Date Asthma December 14, 2024 1:2 9pm CHF (congestive heart failure) November 1:29pm Asthma February 14, 2025 2:05p m Atrial fibrillation February 14, 2025 2:05p m Debility February 14, 2025 2:05p m Essential hypertension February 14, 2025 2: 05pm Hyperlipidemia February 14, 2025 2:05p m Anemia February 19, 2025 2:15p m Aortic stenosis February 19, 2025 2:15p m Atherosclerosis of coronary 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 February 19, 2025 2:15pm CHF (congestive heart failure) February 19, 2025 2:15pm Hyperlipidemia February 19, 2025 2:15p m Paroxysmal atrial fibrillation February 19, 2025 2:15pm Sinus bradycardia February 19, 2025 2:15p m Bradycardia March 21, 2025 10:51 am Aortic stenosis March 21, 2025 10:51 am Atherosclerosis of coronary 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 March 21, 2025 10:51am Paroxysmal atrial fibrillation March 21, 2025 10:51am Chronic anticoagulation March 21, 2025 1 0:51am Chief Complaint Admit Date SWALLOWING CONCERNS January 02, 2025 12: 43pm 3 M FU February 14, 2025 2:05p m Back in a-fib, see clinical notes Devyn Petit ne 2024 2:15pm AFIB March 05, 2025 10:4 8am Atrial fibrillation March 05, 2025 11:0 4am E-ORDER March 07, 2025 1:34 pm ANKLE March 10, 2025 4:05 pm nosebleed March 17, 2025 5:40 am NOSE BLEED March 17, 2025 1:52 pm See Note March 21, 2025 10:51 am ( TECH NEED MORE VIEW) April 02, 2025 3 :47pm [facility] April 19, 2025 1:4 4pm Reason for Visit Admit Date Asthma February 14, 2025 2:05p m Atrial fibrillation February 14, 2025 2:05p m Debility February 14, 2025 2:05p m Essential hypertension February 14, 2025 2: 05pm Hyperlipidemia February 14, 2025 2:05p m Anemia February 19, 2025 2:15p m Aortic stenosis February 19, 2025 2:15p m Atherosclerosis of coronary 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 February 19, 2025 2:15pm CHF (congestive heart failure) February 19, 2025 2:15pm Hyperlipidemia February 19, 2025 2:15p m Paroxysmal atrial fibrillation February 19, 2025 2:15pm Sinus bradycardia February 19, 2025 2:15p m Bradycardia March 21, 2025 10:51 am Aortic stenosis March 21, 2025 10:51 am Atherosclerosis of coronary 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 March 21, 2025 10:51am Paroxysmal atrial fibrillation March 21, 2025 10:51am Chronic anticoagulation March 21, 2025 1 0:51am Chief Complaint Admit Date 3 M FU February 14, 2025 2:05p m Back in a-fib, see clinical notes Devyn Petit ne 2024 2:15pm AFIB March 05, 2025 10:4 8am Atrial fibrillation March 05, 2025 11:0 4am E-ORDER March 07, 2025 1:34 pm ANKLE March 10, 2025 4:05 pm nosebleed March 17, 2025 5:40 am NOSE BLEED March 17, 2025 1:52 pm See Note March 21, 2025 10:51 am ( TECH NEED MORE VIEW) April 02, 2025 3 :47pm [facility] FU April 19, 2025 1:4 4pm Shortness of breath. Pain left side. [facility] May 08, 2025 10:18am Reason for Visit Admit Date Asthma February 14, 2025 2:05p m Atrial fibrillation February 14, 2025 2:05p m Debility February 14, 2025 2:05p m Essential hypertension February 14, 2025 2: 05pm Hyperlipidemia February 14, 2025 2:05p m Anemia February 19, 2025 2:15p m Aortic stenosis February 19, 2025 2:15p m Atherosclerosis of coronary 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 February 19, 2025 2:15pm CHF (congestive heart failure) February 19, 2025 2:15pm Hyperlipidemia February 19, 2025 2:15p m Paroxysmal atrial fibrillation February 19, 2025 2:15pm Sinus bradycardia February 19, 2025 2:15p m Bradycardia March 21, 2025 10:51 am Aortic stenosis March 21, 2025 10:51 am Atherosclerosis of coronary 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 March 21, 2025 10:51am Paroxysmal atrial fibrillation March 21, 2025 10:51am Chronic anticoagulation March 21, 2025 1 0:51am Lower leg edema April 19, 2025 1:4 4pm Right-sided nosebleed April 19, 2025 1 :44pm Reason for Visit Admit Date Asthma February 14, 2025 2:05p m Atrial fibrillation February 14, 2025 2:05p m Debility February 14, 2025 2:05p m Essential hypertension February 14, 2025 2: 05pm Hyperlipidemia February 14, 2025 2:05p m Anemia February 19, 2025 2:15p m Aortic stenosis February 19, 2025 2:15p m Atherosclerosis of coronary 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 February 19, 2025 2:15pm CHF (congestive heart failure) February 19, 2025 2:15pm Hyperlipidemia February 19, 2025 2:15p m Paroxysmal atrial fibrillation February 19, 2025 2:15pm Sinus bradycardia February 19, 2025 2:15p m Bradycardia March 21, 2025 10:51 am Aortic stenosis March 21, 2025 10:51 am Atherosclerosis of coronary 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 March 21, 2025 10:51am Paroxysmal atrial fibrillation March 21, 2025 10:51am Chronic anticoagulation March 21, 2025 1 0:51am Lower leg edema April 19, 2025 1:4 4pm Right-sided nosebleed April 19, 2025 1 :44pm Bradycardia May 08, 2025 10 :18am Chest pain May 08, 2025 10 :18am Light-headed feeling May 08, 2025 1 0:18am CHF (congestive heart failure) May 082024 10:18am Family History No Family History Records Found Relationship Condition Age at Onset Recorded Date/T zach Not Specified Disorder of liver Unknown Alcoholism Unknown father Hypertension Unknown grandmother Hypertension Unknown Advance Directives No Advanced Directives Records Found Advance Directive Response Recorded Date/ Time Living Will Yes July 23 2:06pm Power of Grocery Shopper Yes July 23, 2021 2:06pm Documents on File Type Date Recorded Patient Software Test Analyst Expl anation Advance Directive(s) 01/15/2016 12:48 PM Advance Directive Response Recorded Date/ Time Living Will Yes July 23 1:06pm Power of Grocery Shopper Yes July 23, 2021 1:06pm Advance Directive Response Recorded Date/ Time Name of Medical Power of Grocery Shopper SHAWNEE OQUENDODudley August 24, 2022 6:11am Living Will Yes August 24 6:11am Power of Grocery Shopper Yes August 24, 2022 6:11am Advance Directive Response Recorded Date/ Time Name of Medical Power of Grocery Shopper SHAWNEE OQUENDODudley January 22, 2023 10:29am Living Will Yes January 22, 2023 10 :29am Power of Grocery Shopper Yes January 22, 2023 10:29am Advance Directive Response Recorded Date/ Time Name of Medical Power of Grocery Shopper SHAWNEE YOCASTA January 22, 2023 10:29am Name of Medical Power of Grocery Shopper SHAWNEE LEIST- ; AAKASH RUST- SON March 12, 2023 12:24pm Living Will Yes March 12, 2023 12:24pm Power of Grocery Shopper Yes March 12 12:24pm Advance Directive Response Recorded Date/ Time Name of Medical Power of Grocery Shopper SHAWNEE AZRAT January 22, 2023 10:29am Name of Medical Power of Grocery Shopper SHAWNEE AZRAT- ; AAKASH RUST- SON March 12, 2023 12:24pm Name of Medical Power of Grocery Shopper shawnee leist March 21, 2023 7:58pm Living Will Yes March 21, 2023 7 :58pm Power of Grocery Shopper Yes March 21, 2023 7:58pm Advance Directive Response Recorded Date/ Time Name of Medical Power of Grocery Shopper SHAWNEE LEIST January 22, 2023 10:29am Name of Medical Power of Grocery Shopper SHAWNEE AZRAT- ; AAKASH RUST- SON March 12, 2023 12:24pm Name of Medical Power of Grocery Shopper present March 25, 2023 11:31am Name of Medical Power of Grocery Shopper --SHAWNEE April 22, 2023 8:23pm Living Will Yes April 22, 2023 8:23pm Power of Grocery Shopper Yes April 22 8:23pm Name of Medical Power of Grocery Shopper shawnee azrat March 21, 2023 7:58pm Advance Directive Response Recorded Date/ Time Name of Medical Power of Grocery Shopper SHAWNEE LEIST December 02, 2023 1:37pm Living Will Yes December 02, 2023 1:37pm Power of Grocery Shopper Yes December 01 1:37pm Advance Directive Response Recorded Date/ Time Name of Medical Power of Grocery Shopper SHAWNEE LEIST December 02, 2023 5:24pm Living Will Yes December 02, 2023 5:24pm Power of Grocery Shopper Yes December 01 5:24pm Advance Directive Response Recorded Date/ Time Name of Medical Power of Grocery Shopper SHAWNEE LEIST December 02, 2023 5:24pm Name of Medical Power of Grocery Shopper Shawnee Azrat, spouse December 09, 2023 12:01pm Name of Medical Power of Grocery Shopper ON FILE December 20, 2023 10:35am Living Will Yes December 20, 2023 10:35am Power of Grocery Shopper Yes December 19 10:35am Documents on File Type Date Recorded Patient Software Test Analyst Expl anation Advance Directive(s) 01/15/2016 12:48 PM Advance Directive Response Recorded Date/ Time Living Will Yes December 20, 2023 10:35am Power of Grocery Shopper Yes December 19 10:35am Advance Directive Response Recorded Date/ Time Living Will Yes December 20, 2023 10:35am Do you have a Healthcare Power of Grocery Shopper? Yes December 20, 2023 10:35am Advance Directive Response Recorded Date/ Time Living Will Yes December 20, 2023 10:35am Do you have a Healthcare Power of Grocery Shopper? Yes December 20, 2023 10:35am Do you have a Healthcare Power of Grocery Shopper? Yes March 10, 2025 4:22pm Name of Medical Power of Grocery Shopper shawnee March 10, 2025 4:22pm Advance Directive Response Recorded Date/ Time Living Will Yes December 20, 2023 10:35am Do you have a Healthcare Power of Grocery Shopper? Yes December 20, 2023 10:35am Do you have a Healthcare Power of Grocery Shopper? Yes March 17, 2025 5:44am Do you have a Healthcare Power of Grocery Shopper? Yes March 10, 2025 4:22pm Name of Medical Power of Grocery Shopper shawnee March 10, 2025 4:22pm Advance Directive Response Recorded Date/ Time Living Will Yes December 20, 2023 10:35am Do you have a Healthcare Power of Grocery Shopper? Yes December 20, 2023 10:35am Do you have a Healthcare Power of Grocery Shopper? Yes March 17, 2025 5:44am Do you have a Healthcare Power of Grocery Shopper? Yes March 17, 2025 1:59pm Do you have a Healthcare Power of Grocery Shopper? Yes March 10, 2025 4:22pm Name of Medical Power of Grocery Shopper shawnee March 10, 2025 4:22pm Advance Directive Response Recorded Date/ Time Do you have a Healthcare Power of Grocery Shopper? Yes March 17, 2025 5:44am Do you have a Healthcare Power of Grocery Shopper? Yes March 17, 2025 1:59pm Do you have a Healthcare Power of Grocery Shopper? Yes March 10, 2025 4:22pm Name of Medical Power of Grocery Shopper shawnee March 10, 2025 4:22pm Reason for Referral Specialty Diagnoses / Procedures Referred By Kit buckner Referred To Contact Sales Facilitator Diagnoses Primary open angle glaucoma (POAG) of both eyes, severe stage Procedures CONSULT TO [facility] Shawn Shea MD [address] [place] [address] [facility] [address] [place] [address] Referral ID Status Reason Start Date Expiration Date Visits Requested Visits Authorized [id number] Ref Not Required PCP Requested Referral 03/12/2024 [...] or prosecute any alcohol or drug abuse patient.[facility] the event this information is protected by the Federal Confidentiality of Alcohol and Drug Abuse Patient Records regulations: The Federal rules restrict any use of the information to criminally investigate or prosecute any alcohol or drug abuse patient.[facility] the event this information is protected by the Federal Confidentiality of Alcohol and Drug Abuse Patient Records regulations: The Federal rules restrict any use of the information to criminally investigate or prosecute any alcohol or drug abuse patient.[facility] the event this information is protected by the Federal Confidentiality of Alcohol and Drug Abuse Patient Records regulations: The Federal rules restrict any use of the information to criminally investigate or prosecute any alcohol or drug abuse patient.[facility] the event this information is protected by the Federal Confidentiality of Alcohol and Drug Abuse Patient Records regulations: The Federal rules restrict any use of the information to criminally investigate or prosecute any alcohol or drug abuse patient.[facility] the event this information is protected by the Federal Confidentiality of Alcohol and Drug Abuse Patient Records regulations: The Federal rules restrict any use of the information to criminally investigate or prosecute any alcohol or drug abuse patient.[facility] Center[facility] the event this information is protected by the Federal Confidentiality of Alcohol and Drug Abuse Patient Records regulations: The Federal rules restrict any use of the information to criminally investigate or prosecute any alcohol or drug abuse patient.[facility] Center[facility] the event this information is protected by the Federal Confidentiality of Alcohol and Drug Abuse Patient Records regulations: The Federal rules restrict any use of the information to criminally investigate or prosecute any alcohol or drug abuse patient.[facility] Center[facility] the event this information is protected by the Federal Confidentiality of Alcohol and Drug Abuse Patient Records regulations: The Federal rules restrict any use of the information to criminally investigate or prosecute any alcohol or drug abuse patient.[facility] Center[facility] the event this information is protected by the Federal Confidentiality of Alcohol and Drug Abuse Patient Records regulations: The Federal rules restrict any use of the information to criminally investigate or prosecute any alcohol or drug abuse patient.[facility] CenterIn the event this information is protected by the Federal Confidentiality of Alcohol and Drug Abuse Patient Records regulations: The Federal rules restrict any use of the information to criminally investigate or prosecute any alcohol or drug abuse patient.[facility] CenterIn the event this information is protected by the Federal Confidentiality of Alcohol and Drug Abuse Patient Records regulations: The Federal rules restrict any use of the information to criminally investigate or prosecute any alcohol or drug abuse patient.[facility] CenterIn the event this information is protected by the Federal Confidentiality of Alcohol and Drug Abuse Patient Records regulations: The Federal rules restrict any use of the information to criminally investigate or prosecute any alcohol or drug abuse patient.[facility] CenterIn the event this information is protected by the Federal Confidentiality of Alcohol and Drug Abuse Patient Records regulations: The Federal rules restrict any use of the information to criminally investigate or prosecute any alcohol or drug abuse patient.[facility] CenterIn the event this information is protected by the Federal Confidentiality of Alcohol and Drug Abuse Patient Records regulations: The Federal rules restrict any use of the information to criminally investigate or prosecute any alcohol or drug abuse patient.[facility] CenterIn the event this information is protected by the Federal Confidentiality of Alcohol and Drug Abuse Patient Records regulations: The Federal rules restrict any use of the information to criminally investigate or prosecute any alcohol or drug abuse patient.[facility] CenterIn the event this information is protected by the Federal Confidentiality of Alcohol and Drug Abuse Patient Records regulations: The Federal rules restrict any use of the information to criminally investigate or prosecute any alcohol or drug abuse patient.[facility] Reason for Visit (unrecogniz ed section and content) Reason Comments Refill Request Reason Comments New Reason Comments Primary Open Angle Glaucoma Follow Up Reason Comments Medication Problem Reason Onset Date Comments Refill Request 03/10/2024 Reason Comments Primary Open Angle Glaucoma Follow Up Reason Comments Consult to [employer] Work Reason Comments Follow Up Reason Comments Primary Open Angle Glaucoma FOLLOW UP Pseudophakia Follow Up Reason Comments Conjunctivitis Evaluation Reason Comments follow up from 07/2025 Reason Comments Primary Open Angle Glaucoma Follow Up Se radha stage ou Pseudophakia Reason Comments CARD New Patient Consult Ref; [facility] Care Teams (unrecognized sec tion and content) Bevel Operator Relationship Specialty Start Date End Date Manuel Logan MD [address] [place] [address] PCP - General Family Medicine 12/08/18 Tristan Montana MD Specialty Oyster Washer Cardiology 07/15/16 Team Status: Active Member Role Status Dates Dr. Manuel Logan MD Family Provider Active Dr. Addi Mario MD Primary Care Provider Active Team Status: Inactive Member Role Status Dates Dr. Addi Mario MD Primary Care Kassandra robert, Attending Provider, Referring Provider Active Team Status: [...] Provider, Refer ring Provider Active Ailin Sharma ELECTRICAL ASSEMBLY TECHNICIAN, ELECTRICAL ASSEMBLY TECHNICIAN-C Attending Provider Active Team Status: Inactive Member [...] Washington Pepper DO Attending Provider, Emergency P rojovanni Active Team Status: Inactive Member Role Status Dates Dr. Addi Mario MD Primary Care Provider Active Dr. Heber Miranda MD Attending Provider, Emergency Provider Active Bevel Operator Relationship Specialty Start Date End Date Manuel Logan MD [address] [place], [place] [id number] PCP - General Family Medicine 12/08/18 Tristan Montana MD Specialty Oyster Washer Cardiology 07/15/16 Bevel Operator Relationship Specialty Start Date End Date Manuel Logan MD [address] [place], [place] [id number] PCP - General Family Medicine 12/08/18 Tristan Montana MD Specialty Oyster Washer Cardiology 07/15/16 Bevel Operator Relationship Specialty Start Date End Date Manuel Logan MD [address] [place] [address] PCP - General Family Medicine 12/08/18 Tristan Montana MD Specialty Oyster Washer Cardiology 07/15/16 Bevel Operator Relationship Specialty Start Date End Date Manuel Logan MD [address] [place] [address] PCP - General Family Medicine 12/08/18 Tristan Montana MD Specialty Oyster Washer Cardiology 07/15/16 Team Status: Inactive Member Role Status Dates Dr. Addi Mario MD Primary Care Provider, Refer ring Provider Active Dr. Odalis Schmidt MD Attending Provider Active Team Status: Inactive Member Role Status Dates Dr. Addi Mario MD Primary Care Provider Active Dr. Odalis Schmidt MD Attending Provider, Referring Provider Active [...] Care Provider Active Dr. Antonio James , Emergency Provider Active Dr. Miguelito Laguna MD Admit Provider, Other Pro vider Active Dr. Vanessa Simmons MD Other Provider Active Dr. Klaudia Gonzales MD Attending Provider Active Dr. Darien Lee MD Other Provider Active Team Status: Inactive Member Role Status Dates Dr. Addi Mario MD Primary Care Provider, Refer ring Provider Active Moreno Power ELECTRICAL ASSEMBLY TECHNICIAN, ELECTRICAL ASSEMBLY TECHNICIAN-C Attending Provider Active Team Status: Active Member [...] MD Admit Provider, Attending Provid er Active Bevel Operator Relationship Specialty Start Date End Date Manuel Logan MD [address] [facility] [address] PCP - General Family Medicine 12/08/18 Tristan Montana MD Specialty Oyster Washer Cardiology 07/15/16 Bevel Operator Relationship Specialty Start Date End Date Manuel Lgoan MD [address] [place] [address] PCP - General Family Medicine 12/08/18 Tristan Montana MD Specialty Oyster Washer Cardiology 07/15/16 Bevel Operator Relationship Specialty Start Date End Date Manuel Logan MD [address] [place] [address] PCP - General Family Medicine 12/08/18 Tristan Montana MD Specialty Oyster Washer Cardiology 07/15/16 Bevel Operator Relationship Specialty Start Date End Date Manuel Logan MD [address] [place] [address] PCP - General Family Medicine 12/08/18 Tristan Montana MD Specialty Oyster Washer Cardiology 07/15/16 Bevel Operator Relationship Specialty Start Date End Date Manuel Logan MD [address] [place] [address] PCP - General Family Medicine 12/08/18 Tristan Montana MD Specialty Oyster Washer Cardiology 07/15/16 Bevel Operator Relationship Specialty Start Date End Date Manuel Logan MD [address] [place] [address] PCP - General Family Medicine 12/08/18 Tristan Montana MD Specialty Oyster Washer Cardiology 07/15/16 Bevel Operator Relationship Specialty Start Date End Date Manuel Logan MD [address] [place] [address] PCP - General Family Medicine 12/08/18 Tristan Montana MD Specialty Oyster Washer Cardiology 07/15/16 Bevel Operator Relationship Specialty Start Date End Date Manuel Logan MD [address] [place] [address] PCP - General Family Medicine 12/08/18 Tristan Montana MD Specialty Oyster Washer Cardiology 07/15/16 Team Status: Active Member Role [...] 2024 End: December 14, 2024 Ailin Sharma ELECTRICAL ASSEMBLY TECHNICIAN, ELECTRICAL ASSEMBLY TECHNICIAN-C Attending Provider Active Start: December 14, 2024 [...] 2025 End: February 19, 2025 Gretchen Nguyen ELECTRICAL ASSEMBLY TECHNICIAN, ELECTRICAL ASSEMBLY TECHNICIAN-C Attending Provider Active Start: February 19, 2025 End: February 19, 2025 Team Status: Active Member Role Status Dates Dr. Addi Mario MD Primary Care Provider Active Start: March 05, 2025 Gretchen Nguyen ELECTRICAL ASSEMBLY TECHNICIAN, ELECTRICAL ASSEMBLY TECHNICIAN-C Attending Provider Active Start: March 05, 2025 Gretchen Nguyen ELECTRICAL ASSEMBLY TECHNICIAN, ELECTRICAL ASSEMBLY TECHNICIAN-C Referring Provider Active Start: March 05, 2025 Team Status: Active Member Role Status Dates Dr. Addi Mario MD Primary Care Provider Active Start: March 07, 2025 Gretchen Nguyen ELECTRICAL ASSEMBLY TECHNICIAN, ELECTRICAL ASSEMBLY TECHNICIAN-C Attending Provider Active Start: March 07, 2025 Gretchen Nguyen ELECTRICAL ASSEMBLY TECHNICIAN, ELECTRICAL ASSEMBLY TECHNICIAN-C Referring Provider Active Start: March 07, 2025 [...] 2025 End: March 07, 2025 Gretchen Nguyen ELECTRICAL ASSEMBLY TECHNICIAN, ELECTRICAL ASSEMBLY TECHNICIAN-C Attending Provider Active Start: March 07, 2025 End: March 07, 2025 Gretchen Nguyen ELECTRICAL ASSEMBLY TECHNICIAN, ELECTRICAL ASSEMBLY TECHNICIAN-C Referring Provider Active Start: March 07, 2025 [...] 2024 End: December 14, 2024 Ailin Sharma ELECTRICAL ASSEMBLY TECHNICIAN, ELECTRICAL ASSEMBLY TECHNICIAN-C Attending Provider Active Start: December 14, 2024 [...] 2025 End: February 19, 2025 Gretchen Nguyen ELECTRICAL ASSEMBLY TECHNICIAN, ELECTRICAL ASSEMBLY TECHNICIAN-C Attending Provider Active Start: February 19, 2025 End: February 19, 2025 Team Status: Active Member Role/Relationship Status Dates Dr. Addi Mario MD Primary Care Provider Active Start: March 05, 2025 Gretchen Nguyen ELECTRICAL ASSEMBLY TECHNICIAN, ELECTRICAL ASSEMBLY TECHNICIAN-C Attending Provider Active Start: March 05, 2025 Gretchen Nguyen ELECTRICAL ASSEMBLY TECHNICIAN, ELECTRICAL ASSEMBLY TECHNICIAN-C Referring Provider Active Start: March 05, 2025 Team Status: Active Member Role/Relationship Status Dates Dr. Addi Mario MD Primary Care Provider Active Start: March 05, 2025 Dr. Woody Montana MD Attending Provider Activ e Start: March 05, 2025 Gretchen Nguyen ELECTRICAL ASSEMBLY TECHNICIAN, ELECTRICAL ASSEMBLY TECHNICIAN-C Referring Provider Active Start: March 05, 2025 Team Status: Inactive Member Role/Relationship Status Dates Dr. Addi Mario MD Primary Care Provider Active Start: March 07, 2025 End: March 07, 2025 Gretchen Nguyen ELECTRICAL ASSEMBLY TECHNICIAN, ELECTRICAL ASSEMBLY TECHNICIAN-C Attending Provider Active Start: March 07, 2025 End: March 07, 2025 Gretchen Nguyen ELECTRICAL ASSEMBLY TECHNICIAN, ELECTRICAL ASSEMBLY TECHNICIAN-C Referring Provider Active Start: March 07, 2025 [...] Active Start: March 14, 2025 Gretchen Nguyen ELECTRICAL ASSEMBLY TECHNICIAN, ELECTRICAL ASSEMBLY TECHNICIAN-C Attending Provider Active Start: March 14, 2025 Gretchen Nguyen ELECTRICAL ASSEMBLY TECHNICIAN, ELECTRICAL ASSEMBLY TECHNICIAN-C Referring Provider Active Start: March 14, 2025 Team Status: Inactive Member Role/Relationship Status Dates Dr. Addi Mario MD Primary Care Provider Active Start: March 17, 2025 End: March 17, 2025 Dr. Hai Rand DO Emergency Provider Active Start: March 17, 2025 End: March 17, 2025 Team Status: Inactive Member Role/Relationship Status Dates Dr. Addi Mario MD Primary Care Provider Active Start: March 17, 2025 End: March 17, 2025 Dr. Denzel Chau MD Emergency Provider Active S tart: March 17, 2025 End: March 17, 2025 Team Status: Inactive Member Role/Relationship Status Dates Dr. Addi Mario MD Primary Care Provider Active Start: March 14, 2025 End: March 14, 2025 Gretchen Nguyen ELECTRICAL ASSEMBLY TECHNICIAN, ELECTRICAL ASSEMBLY TECHNICIAN-C Attending Provider Active Start: March 14, 2025 End: March 14, 2025 Gretchen Nguyen ELECTRICAL ASSEMBLY TECHNICIAN, ELECTRICAL ASSEMBLY TECHNICIAN-C Referring Provider Active Start: March 14, 2025 End: March 14, 2025 Team Status: Inactive Member Role/Relationship Status Dates Dr. Addi Mario MD Primary Care Provider Active Start: March 17, 2025 End: March 17, 2025 Dr. Hai Rand DO Attending Provider Active Start: March 17, 2025 End: March 17, 2025 Dr. Hai Rand DO Emergency Provider Active Start: March 17, 2025 End: March 17, 2025 Team Status: Inactive Member Role/Relationship Status Dates Dr. Addi Mario MD Primary Care Provider Active Start: March 17, 2025 End: March 17, 2025 Dr. Denzel Chau MD Attending Provider Active S tart: March 17, 2025 End: March 17, 2025 Dr. Denzel Chau MD Emergency Provider Active S tart: March 17, 2025 End: March 17, 2025 Team Status: Inactive Member Role/Relationship Status Dates Dr. Addi Mario MD Primary Care Provider Active Start: March 21, 2025 End: March 21, 2025 Dr. Addi Mario MD Referring Provider Active Start: March 21, 2025 End: March 21, 2025 Dr. Odalis Schmidt MD Attending Provider Active Start: March 21, 2025 End: March 21, 2025 Team Status: Inactive Member Role/Relationship Status Dates Dr. Addi Mario MD Primary Care Provider Active Start: December 14, 2024 End: December 14, 2024 Dr. Addi Mario MD Referring Provider Active Start: December 14, 2024 End: December 14, 2024 Ailin Sharma ELECTRICAL ASSEMBLY TECHNICIAN, ELECTRICAL ASSEMBLY TECHNICIAN-C Attending Provider Active Start: December 14, 2024 [...] 2025 End: February 19, 2025 Gretchen Nguyen ELECTRICAL ASSEMBLY TECHNICIAN, ELECTRICAL ASSEMBLY TECHNICIAN-C Attending Provider Active Start: February 19, 2025 End: February 19, 2025 Team Status: Active Member Role/Relationship Status Dates Dr. Addi Mario MD Primary Care Provider Active Start: March 05, 2025 Gretchen Nguyen ELECTRICAL ASSEMBLY TECHNICIAN, ELECTRICAL ASSEMBLY TECHNICIAN-C Attending Provider Active Start: March 05, 2025 Gretchen Nguyen ELECTRICAL ASSEMBLY TECHNICIAN, ELECTRICAL ASSEMBLY TECHNICIAN-C Referring Provider Active Start: March 05, 2025 Team Status: Active Member Role/Relationship Status Dates Dr. Addi Mario MD Primary Care Provider Active Start: March 05, 2025 Dr. Woody Montana MD Attending Provider Activ e Start: March 05, 2025 Gretchen Nguyen ELECTRICAL ASSEMBLY TECHNICIAN, ELECTRICAL ASSEMBLY TECHNICIAN-C Referring Provider Active Start: March 05, 2025 Team Status: Inactive Member Role/Relationship Status Dates Dr. Addi Mario MD Primary Care Provider Active Start: March 07, 2025 End: March 07, 2025 Gretchen Nguyen ELECTRICAL ASSEMBLY TECHNICIAN, ELECTRICAL ASSEMBLY TECHNICIAN-C Attending Provider Active Start: March 07, 2025 End: March 07, 2025 Gretchen Nguyen ELECTRICAL ASSEMBLY TECHNICIAN, ELECTRICAL ASSEMBLY TECHNICIAN-C Referring Provider Active Start: March 07, 2025 [...] March 10, 2025 Team Status: Inactive Member Role/Relationship Status Dates Dr. Addi Mario MD Primary Care Provider Active Start: March 14, 2025 End: March 14, 2025 Gretchen Nguyen ELECTRICAL ASSEMBLY TECHNICIAN, ELECTRICAL ASSEMBLY TECHNICIAN-C Attending Provider Active Start: March 14, 2025 End: March 14, 2025 Gretchen Nguyen ELECTRICAL ASSEMBLY TECHNICIAN, ELECTRICAL ASSEMBLY TECHNICIAN-C Referring Provider Active Start: March 14, 2025 End: March 14, 2025 Team Status: Inactive Member Role/Relationship Status Dates Dr. Addi Mario MD Primary Care Provider Active Start: March 17, 2025 End: March 17, 2025 Dr. Hai Rand DO Attending Provider Active Start: March 17, 2025 End: March 17, 2025 Dr. Hai Rand DO Emergency Provider Active Start: March 17, 2025 End: March 17, 2025 Team Status: Inactive Member Role/Relationship Status Dates Dr. Addi Mario MD Primary Care Provider Active Start: March 17, 2025 End: March 17, 2025 Dr. Denzel Chau MD Attending Provider Active S tart: March 17, 2025 End: March 17, 2025 Dr. Denzel Chau MD Emergency Provider Active S tart: March 17, 2025 End: March 17, 2025 Team Status: Inactive Member Role/Relationship Status Dates Dr. Addi Mario MD Primary Care Provider Active Start: March 21, 2025 End: March 21, 2025 Dr. Addi Mario MD Referring Provider Active Start: March 21, 2025 End: March 21, 2025 Dr. Odalis Schmidt MD Attending Provider Active Start: March 21, 2025 End: March 21, 2025 Team Status: Inactive Member Role/Relationship Status Dates Dr. Addi Mario MD Primary Care Provider Active Start: April 02, 2025 End: April 02, 2025 Dr. Odalis Schmidt MD Attending Provider Active Start: April 02, 2025 End: April 02, 2025 Dr. Odalis Schmidt MD Referring Provider Active Start: April 02, 2025 End: April 02, 2025 Team Status: Active Member Role/Relationship Status Dates Dr. Addi Mario MD Primary Care Provider Active Start: April 02, 2025 Dr. Vanessa Simmons MD Attending Provider Active Start: April 02, 2025 Team Status: Inactive Member Role/Relationship [...] 2025 End: February 19, 2025 Gretchen Nguyen ELECTRICAL ASSEMBLY TECHNICIAN, ELECTRICAL ASSEMBLY TECHNICIAN-C Attending Provider Active Start: February 19, 2025 End: February 19, 2025 Team Status: Active Member Role/Relationship Status Dates Dr. Addi Mario MD Primary Care Provider Active Start: March 05, 2025 Gretchen Nguyen ELECTRICAL ASSEMBLY TECHNICIAN, ELECTRICAL ASSEMBLY TECHNICIAN-C Attending Provider Active Start: March 05, 2025 Gretchen Nguyen ELECTRICAL ASSEMBLY TECHNICIAN, ELECTRICAL ASSEMBLY TECHNICIAN-C Referring Provider Active Start: March 05, 2025 Team Status: Active Member Role/Relationship Status Dates Dr. Addi Mario MD Primary Care Provider Active Start: March 05, 2025 Dr. Woody Montana MD Attending Provider Activ e Start: March 05, 2025 Gretchen Nguyen ELECTRICAL ASSEMBLY TECHNICIAN, ELECTRICAL ASSEMBLY TECHNICIAN-C Referring Provider Active Start: March 05, 2025 Team Status: Inactive Member Role/Relationship Status Dates Dr. Addi Mario MD Primary Care Provider Active Start: March 07, 2025 End: March 07, 2025 Gretchen Nguyen ELECTRICAL ASSEMBLY TECHNICIAN, ELECTRICAL ASSEMBLY TECHNICIAN-C Attending Provider Active Start: March 07, 2025 End: March 07, 2025 Gretchen Nguyen ELECTRICAL ASSEMBLY TECHNICIAN, ELECTRICAL ASSEMBLY TECHNICIAN-C Referring Provider Active Start: March 07, 2025 End: March 07, 2025 Team Status: Inactive Member Role/Relationship Status Dates Dr. Addi Mario MD Primary Care Provider Active Start: March 10, 2025 End: March 10, 2025 Dr. oRlan Peña DO Attending Provider Active Start : March 10, 2025 End: March 10, 2025 Dr. Rolan Peña DO Emergency Provider Active Start : March 10, 2025 End: March 10, 2025 Team Status: Inactive Member Role/Relationship Status Dates Dr. Addi Mario MD Primary Care Provider Active Start: March 14, 2025 End: March 14, 2025 Gretchen Nguyen ELECTRICAL ASSEMBLY TECHNICIAN, ELECTRICAL ASSEMBLY TECHNICIAN-C Attending Provider Active Start: March 14, 2025 End: March 14, 2025 Gretchen Nguyen ELECTRICAL ASSEMBLY TECHNICIAN, ELECTRICAL ASSEMBLY TECHNICIAN-C Referring Provider Active Start: March 14, 2025 End: March 14, 2025 Team Status: Inactive Member Role/Relationship Status Dates Dr. Addi Mario MD Primary Care Provider Active Start: March 17, 2025 End: March 17, 2025 Dr. Hai Rand DO Attending Provider Active Start: March 17, 2025 End: March 17, 2025 Dr. Hai Rand DO Emergency Provider Active Start: March 17, 2025 End: March 17, 2025 Team Status: Inactive Member Role/Relationship Status Dates Dr. Addi Mario MD Primary Care Provider Active Start: March 17, 2025 End: March 17, 2025 Dr. Denzel Chau MD Attending Provider Active S tart: March 17, 2025 End: March 17, 2025 Dr. Denzel Chau MD Emergency Provider Active S tart: March 17, 2025 End: March 17, 2025 Team Status: Inactive Member Role/Relationship Status Dates Dr. Addi Mario MD Primary Care Provider Active Start: March 21, 2025 End: March 21, 2025 Dr. Addi Mario MD Referring Provider Active Start: March 21, 2025 End: March 21, 2025 Dr. Odalis Schmidt MD Attending Provider Active Start: March 21, 2025 End: March 21, 2025 Team Status: Inactive Member Role/Relationship Status Dates Dr. Addi Mario MD Primary Care Provider Active Start: April 02, 2025 End: April 02, 2025 Dr. Odalis Schmidt MD Attending Provider Active Start: April 02, 2025 End: April 02, 2025 Dr. Odalis Schmidt MD Referring Provider Active Start: April 02, 2025 End: April 02, 2025 Team Status: Active Member Role/Relationship Status Dates Dr. Addi Mario MD Primary Care Provider Active Start: April 02, 2025 Dr. Vanessa Simmons MD Attending Provider Active Start: April 02, 2025 Team Status: Inactive Member Role/Relationship Status Dates Dr. Addi Mario MD Primary Care Provider Active Start: April 19, 2025 End: April 19, 2025 Dr. Addi Mario MD Referring Provider Active Start: April 19, 2025 End: April 19, 2025 HUAN Delgado Attending Provider Active Start: April 19, 2025 End: April 19, 2025 Team Status: Inactive Member Role/Relationship Status [...] 2025 End: February 19, 2025 Gretchen Nguyen ELECTRICAL ASSEMBLY TECHNICIAN, ELECTRICAL ASSEMBLY TECHNICIAN-C Attending Provider Active Start: February 19, 2025 End: February 19, 2025 Team Status: Active Member Role/Relationship Status Dates Dr. Addi Mario MD Primary Care Provider Active Start: March 05, 2025 Gretchen Nguyen ELECTRICAL ASSEMBLY TECHNICIAN, ELECTRICAL ASSEMBLY TECHNICIAN-C Attending Provider Active Start: March 05, 2025 Gretchen Nguyen ELECTRICAL ASSEMBLY TECHNICIAN, ELECTRICAL ASSEMBLY TECHNICIAN-C Referring Provider Active Start: March 05, 2025 Team Status: Active Member Role/Relationship Status Dates Dr. Addi Mario MD Primary Care Provider Active Start: March 05, 2025 Dr. Woody Montana MD Attending Provider Activ e Start: March 05, 2025 Gretchen Nguyen ELECTRICAL ASSEMBLY TECHNICIAN, ELECTRICAL ASSEMBLY TECHNICIAN-C Referring Provider Active Start: March 05, 2025 Team Status: Inactive Member Role/Relationship Status Dates Dr. Addi Mario MD Primary Care Provider Active Start: March 07, 2025 End: March 07, 2025 Gretchen Nguyen ELECTRICAL ASSEMBLY TECHNICIAN, ELECTRICAL ASSEMBLY TECHNICIAN-C Attending Provider Active Start: March 07, 2025 End: March 07, 2025 Gretchen Nguyen ELECTRICAL ASSEMBLY TECHNICIAN, ELECTRICAL ASSEMBLY TECHNICIAN-C Referring Provider Active Start: March 07, 2025 [...] March 10, 2025 Team Status: Inactive Member Role/Relationship Status Dates Dr. Addi Mario MD Primary Care Provider Active Start: March 14, 2025 End: March 14, 2025 Gretchen Nguyen ELECTRICAL ASSEMBLY TECHNICIAN, ELECTRICAL ASSEMBLY TECHNICIAN-C Attending Provider Active Start: March 14, 2025 End: March 14, 2025 Gretchen Nguyen ELECTRICAL ASSEMBLY TECHNICIAN, ELECTRICAL ASSEMBLY TECHNICIAN-C Referring Provider Active Start: March 14, 2025 End: March 14, 2025 Team Status: Inactive Member Role/Relationship Status Dates Dr. Addi Mario MD Primary Care Provider Active Start: March 17, 2025 End: March 17, 2025 Dr. Hai Rand DO Attending Provider Active Start: March 17, 2025 End: March 17, 2025 Dr. Hai Rand DO Emergency Provider Active Start: March 17, 2025 End: March 17, 2025 Team Status: Inactive Member Role/Relationship Status Dates Dr. Addi Mario MD Primary Care Provider Active Start: March 17, 2025 End: March 17, 2025 Dr. Denzel Chau MD Attending Provider Active S tart: March 17, 2025 End: March 17, 2025 Dr. Denzel Chau MD Emergency Provider Active S tart: March 17, 2025 End: March 17, 2025 Team Status: Inactive Member Role/Relationship Status Dates Dr. Addi Mario MD Primary Care Provider Active Start: March 21, 2025 End: March 21, 2025 Dr. Addi Mario MD Referring Provider Active Start: March 21, 2025 End: March 21, 2025 Dr. Odalis Schmidt MD Attending Provider Active Start: March 21, 2025 End: March 21, 2025 Team Status: Inactive Member Role/Relationship Status Dates Dr. Addi Mario MD Primary Care Provider Active Start: April 02, 2025 End: April 02, 2025 Dr. Odalis Schmidt MD Attending Provider Active Start: April 02, 2025 End: April 02, 2025 Dr. Odalis Schmidt MD Referring Provider Active Start: April 02, 2025 End: April 02, 2025 Team Status: Active Member Role/Relationship Status Dates Dr. Addi Mario MD Primary Care Provider Active Start: April 02, 2025 Dr. Vanessa Simmons MD Attending Provider Active Start: April 02, 2025 Team Status: Inactive Member Role/Relationship Status Dates Dr. Addi Mario MD Primary Care Provider Active Start: April 19, 2025 End: April 19, 2025 Dr. Addi Mario MD Referring Provider Active Start: April 19, 2025 End: April 19, 2025 DANO DelgadoC Attending Provider Active Start: April 19, 2025 End: April 19, 2025 Team Status: Inactive Member Role/Relationship Status Dates Dr. Addi Mario MD Primary Care Provider Active Start: May 08, 2025 End: May 08, 2025 Dr. Addi Mario MD Referring Provider Active Start: May 08, 2025 End: May 08, 2025 BASSEM Santana Attending Provider Active St art: May 08, 2025 End: May 08, 2025 Bevel Operator Relationship Specialty Start Date End Date Addi Mario MD [address] [place], [place] [id number] PCP - General Internal Medicine 05/13/25 Gretchen Nguyen CNP [address] [place], [place] [id number] Nurse Practitioner Internal Medicine 05/13/25 Odalis Schmidt [address] [place], [place] [id number] Specialty Oyster Washer Cardiology 05/13/25 Team Status: Inactive Member Role/Relationship Status Dates Dr. Addi Mario MD Primary Care Provider Active Start: May 08, 2025 End: May 08, 2025 BASSEM Santana Attending Provider Active St art: May 08, 2025 End: May 08, 2025 BASSEM Santana Referring Provider Active St art: May 08, 2025 End: May 08, 2025 (unrecognized sect ion and content) No Status Records FoundNo Status Records FoundNo Status Records Found INFORMATION SOURCE (unrecogn ized section and content) DATE CREATED AUTHOR 01/24/2025 [facility] DATE CREATED AUTHOR AUTHOR'S ORGANIZ ATION 05/15/2025 [facility] DATE CREATED AUTHOR AUTHOR'S ORGANIZ ATION 05/19/2025 [facility] FOR RECORDS PERTAINING TO PATIENTS WHO [...] BE BASED ON THE PRIMARY CLINICAL RECORDS. [employer] provides no warranty or guarantee of the accuracy or completeness of information in this document.
[2025-05-20 13:08] LABS: Hematocrit 34.8 % (40-54); Hemoglobin 11.1 g/dL (13.0-16.5); Immature Granulocytes Count 0.010 X10^3/uL (0.0-0.0); Mean Corp Hgb Conc 31.9 g/dL (32-36); Mean Corpuscular Volume 95.6 fL (80-94); Mean Platelet Vol. 11.2 fl (6.2-12.0); NRBC Flagged by Analyzer 0 % (0-5); Platelet Count 108 K/mm3 (150-450); RBC Distribution Width CV 15.7 % (11.6-14.6); RBC Distribution Width SD 55.1 fl (35.1-43.9); Red Blood Count 3.64 M/mm3 (4.6-6.2); White Blood Count 7.2 K/mm3 (4.4-11.0)
[2025-05-20] MEDS: Tetracaine 0.5% Ophthalmic Bottle 1 DRP OPHTHALMIC (13:10)
[2025-05-20 13:13] LABS: Prothrombin Time (Protime)PT. 17.1 SECONDS (11.7-14.9)
[2025-05-20 13:14] LABS: Partial Thromboplast Time 34.0 Seconds (24.1-36.2)
--- NOTE | 2025-05-20 13:21 | ED.RN ---
per dr. lozada, cancel stroke alert. Can cancel [facility]
[2025-05-20 13:31] LABS: Mucous, Urine 0 SEEN /hpf (<or=2+); Red Blood Cells-Urine 0 SEEN /hpf (0-5)
[2025-05-20 13:36] LABS: Anion Gap 7 (5-15); BUN 18 mg/dL (4-19); BUN/Creat Ratio 19.3 RATIO (10-20); Calcium,Total 8.7 mg/dL (7.6-11.0); Carbon Dioxide 25.3 mmol/L (21.0-32.0); Chloride 103 mmol/L (98-108); Estimated Creatinine Clearance 66.91 ml/min (50-250); Glucose 93 mg/dL (70-99); Potassium 4.2 mmol/L (3.3-5.1)
[2025-05-20 13:38] LABS: Color, Urine Yellow (Yellow); Glucose, Dipstick Normal (Normal); Ketone-Dipstick Negative (Negative); Leukocyte Esterase-Dipstick 25 /ul (Negative); Nitrite-Dipstick Negative (Negative); Occult Blood-Urine 25 /ul (Negative); Protein-Dipstick 15 mg/dl (Negative); Specific Gravity, Urine 1.010 (1.002-1.030); Urine Bilirubin Dipstick Negative (Negative)
[2025-05-20 13:43] LABS: Troponin T High Sensitivity 52 ng/L (<=22)
[2025-05-20 13:45] LABS: Squamous Epithelial Cells - UA 0-5 SEEN /hpf (0-5)
[2025-05-20 15:16] LABS: Troponin T High Sens 2 HR 51 ng/L (<=22)
--- NOTE | 2025-05-20 15:41 | ED.RN ---
pt ambulated well to and from the bathroom with walker well
== END 2025-05-20 16:00 | disposition home or self-care (01) ==
PROVIDERS: Emergency Provider Surgery; PCP Internal Medicine; Visit Provider Surgery
DX: H53.8 Other visual disturbances (principal); I11.0 Hypertensive heart disease with heart failure; I50.9 Heart failure, unspecified; I48.0 Paroxysmal atrial fibrillation; I42.9 Cardiomyopathy, unspecified; I65.02 Occlusion and stenosis of left vertebral artery; I25.10 Atherosclerotic heart disease of native coronary artery without angina pectoris; I25.2 Old myocardial infarction; Z79.51 Long term (current) use of inhaled steroids; Z79.899 Other long term (current) drug therapy; Z95.5 Presence of coronary angioplasty implant and graft
CPT/HCPCS: 70450; 70496; 70498; 71045; 80048; 81001; 84484; 85025; 85610; 85730; 93005; 99285; Q9967; A4216

== ENCOUNTER → 2025-06-04 | Outpatient (CLI) | payer MEDICARE, SELFPAY ==
--- NOTE | 2025-06-04 13:17 | EKG12_ITS ---
Test Reason : OP Blood Pressure : */* mmHG Vent. Rate : 62 BPM Atrial Rate : 100 BPM P-R Int : * ms QRS Dur : 86 ms QT Int : 434 ms P-R-T Axes : * -2 78 degrees QTcB Int : 440 ms Atrial fibrillation Septal infarct , age undetermined Abnormal ECG Confirmed by NATALIA FREDERICK, JOE ([id number]), health editor CAROLYNE STOKES ([id number]) on 06/05/2025 9:42:25 AM Referred By: Maurice Longoria Confirmed By: JOE FISHER MD
== END | disposition home or self-care (01) ==
LOC: PSN 13:17
PROVIDERS: PCP Internal Medicine; Referring Provider Physician Assistant; Visit Provider Physician Assistant
DX: R00.1 Bradycardia, unspecified (principal)
CPT/HCPCS: 93005

== ENCOUNTER → 2025-07-05 | Outpatient (CLI) | payer MEDICARE, SELFPAY ==
[2025-07-05 14:31] LABS: Hematocrit 36.6 % (40-54); Hemoglobin 11.6 g/dL (13.0-16.5); Immature Granulocytes Count 0.020 X10^3/uL (0.0-0.0); Mean Corp Hgb Conc 31.7 g/dL (32-36); Mean Corpuscular Volume 95.6 fL (80-94); Mean Platelet Vol. 11.1 fl (6.2-12.0); NRBC Flagged by Analyzer 0 % (0-5); Platelet Count 116 K/mm3 (150-450); RBC Distribution Width CV 16.5 % (11.6-14.6); RBC Distribution Width SD 57.8 fl (35.1-43.9); Red Blood Count 3.83 M/mm3 (4.6-6.2); White Blood Count 6.4 K/mm3 (4.4-11.0)
[2025-07-05 14:44] LABS: Prothrombin Time (Protime)PT. 16.1 SECONDS (11.7-14.9)
[2025-07-05 15:22] LABS: AST(SGOT) 25 U/L (<=37); Alanine Aminotransfer ALT/SGPT 12 U/L (<=46); Albumin, Serum 3.5 g/dL (3.4-4.8); Alkaline Phosphatase 74 U/L (40-129); Anion Gap 6 (5-15); BUN 21 mg/dL (4-19); BUN/Creat Ratio 24.7 RATIO (10-20); Bilirubin, Direct 0.30 mg/dL (0.00-0.30); CRP 3.85 mg/L (0.0-3.0); Calcium,Total 9.4 mg/dL (7.6-11.0); Carbon Dioxide 29.0 mmol/L (21.0-32.0); Chloride 103 mmol/L (98-108); Cholesterol 107 mg/dL (<=200); Globulin 3.9 g/dL (2.2-4.2); Glucose 95 mg/dL (70-99); Low Density Lipoprotein Calc. 42 mg/dL; Potassium 4.6 mmol/L (3.3-5.1); Triglycerides 67 mg/dL; Very Low Density Lipoprotein 13 mg/dL (5-40); Vitamin D,25 Hydroxy 44.7 ng/mL (30-100); cholesterol:hdl ratio screen 2.10
[2025-07-08 17:08] LABS: ANTINUCLEAR ANTIBODIES DIRECT Positive (Negative); Anti-Chromatin 0.4 AI (0.0-0.9); Anti-Jo <0.2 AI (0.0-0.9); Anti-dsDNA Ab 7 IU/mL (0-9); SJOGREN'S Anti-SS-A test > 8.0 AI (0.0-0.9); SJOGREN'S Anti-SS-B test < 0.2 AI (0.0-0.9)
== END | disposition home or self-care (01) ==
PROVIDERS: PCP Internal Medicine; Referring Provider Internal Medicine; Visit Provider Internal Medicine
DX: K74.3 Primary biliary cirrhosis (principal); J45.909 Unspecified asthma, uncomplicated; E55.9 Vitamin D deficiency, unspecified; E78.5 Hyperlipidemia, unspecified
CPT/HCPCS: 36415; 80053; 80061; 82248; 82306; 85025; 85610; 86038; 86140; 86225; 86235

== ENCOUNTER → 2025-08-30 | Outpatient (CLI) | payer MEDICARE, SELFPAY ==
--- OUTSIDE RECORDS SUMMARY | 2025-08-30 15:32 | XMS RPT_ITS | CCD ---
Author Organization [facility] CliniSymt Care Team Providers Care Therapy Administrative Assistant Name Role Phone Dr. Umm Mario Primary Care Provider [phone] Dr. Woody Montana Referring Provider [phone] Dr. Woody [place] Other Provider Dr. Valentín Krause Attending Provider Dr. Umm Mario Referring Provider [phone] Dr. Woody Montana Attending Provider [phone] Dr. Quentin Beltran Attending Provider [phone] Dr. Umm Mario Attending Provider [phone] Zachary CASTING MACHINE OPERATOR HELPER, HUAN Parisi Attending Provider Dr. Jeff Carrero Attending Provider [phone] Dr. John Cool Attending Provider Cas LUEVANO, [place] Ava Daniels Attending Provider Dr. Umm Mario Primary Care Provider [phone] Tristan Montana MD Unavailable Manuel Logan MD Primary Care Provider Dr. Umm Mario Primary Care Provider [phone] Dr. Umm Mario Referring Provider [phone] Dr. Quentin Beltran Attending Provider [phone] Dr. Umm Mario Attending Provider [phone] Dr. Umm Mario Primary Care Provider [phone] Dr. Umm Mario Referring Provider [phone] BASSEM Mireles Attending Provider Unavail le Travon, Dr. Lopez Attending Provider Dr. Umm Mario Primary Care Provider [phone] Dr. Umm Mario Referring Provider [phone] Dr. John Cool Attending Provider Sharma CASTING MACHINE OPERATOR HELPER, CASTING MACHINE OPERATOR HELPER-C Ailin Attending Provider Dr. Umm Mario Attending Provider [phone] Dr. Umm Mario Primary Care Provider [phone] Shelbi, Dr. Fontana Referring Provider [phone] MD Manuel Gardner Attending Provider [phone] BASSEM Mederos Attending Provider Dr. Umm Mario Primary Care Provider [phone] Dr. Umm Mario Referring Provider [phone] Dr. Umm Mario Attending Provider [phone] Nan FREDERICK, Nagapradeep Unavailable Manuel Logan MD Primary Care Provider Nan FREDERICK, Nagapradeep Unavailable Dr. Umm Mario Primary Care Provider [phone] Dr. Umm Mario Attending Provider [phone] Dr. Umm Mario Referring Provider [phone] Dr. Odalis Schmidt Attending Provider Dr. Antonio James Emergency Provider Dr. Miguelito Laguna Admit Provider Dr. Miguelito Laguna Attending Provider Dr. Miguelito Laguna Other Provider Troy, Dr. Mendez Other Provider Troy, Dr. Mendez Attending Provider Koram, Dr. Klaudia Perry Other Provider Koryael, Dr. Klaudia Perry Attending Provider Jesus, Dr. Darien Akhtar Other Provider Dr. Umm Mario Primary Care Provider Dr. Umm Mario Referring Provider Tono WOODARD, CASTING MACHINE OPERATOR HELPER-C Moreno Rhodes Attending Provider Manuel Logan MD Primary Care Provider Shelbi FREDERICK, Dr. Fontana Primary Care Provider Shelbi FREDERICK, Dr. Fontana Referring Provider [phone] Souleymane Curiel Attending Provider Shelbi FREDERICK, Dr. Fontana Attending Provider Ava Mederos Attending Provider Shelbi FREDERICK, Dr. Fontana Primary Care Provider Shelbi FREDERICK, Dr. Fontana Referring Provider [phone] Shelbi FREDERICK, Dr. Fontana Attending Provider [phone] Ailin Hernandez Attending Provider Gretchen Fisher Attending Provider Shelbi FREDERICK, Dr. Fontana Primary Care Provider Dr. Umm Mario MD Referring Provider [phone] Gretchen Fisher Referring Provider Dr. Rolan Peña DO Emergency Provider Shelbi FREDERICK, Dr. Fontana Primary Care Provider Shelbi FREDERICK, Dr. Fontana Attending Provider [phone] Shelbi FREDERICK, Dr. Fontana Referring Provider [phone] Nan FREDERICK, Dr. Mckay Attending Provider Mariana WILL, Dr. Gongora Attending Provider And DO, Dr. Valles Emergency Provider Isac FREDERICK, Dr. Mahoney Emergency Provider Andes DO, Dr. Valles Attending Provider Isac FREDERICK, Dr. Mahoney Attending Provider Roxana FREDERICK, Dr. Bowling Attending Provider Shelbi FREDERICK, Dr. Fontana Primary Care Provider Shelbi FREDERICK, Dr. Fontana Referring Provider [phone] Shelbi FREDERICK, Dr. Fontana Attending Provider [phone] Roxana FREDERICK, Dr. Bowling Referring Provider Troy FREDERICK, Dr. Mendez Attending Provider [phone] Shelbi FREDERICK, Dr. Fontana Primary Care Provider Shelbi FREDERICK, Dr. Fontana Referring Provider [phone] Jorge Luis CASTING MACHINE OPERATOR HELPER-C, Allison Attending Provider [phone] Shelbi FREDERICK, Dr. Fontana Primary Care Provider Shelbi FREDERICK, Dr. Fontana Attending Provider [phone] Shelbi FREDERICK, Dr. Fontana Referring Provider [phone] Maurice Epstein Attending Provider Gretchen Nguyen CNP Unavailable Umm Mario MD Primary Care Provider [phone] Odalis Schmidt Unavailable [phone] Maurice Epstein Referring Provider Shelbi FREDERICK, Dr. Fontana Primary Care Provider Shelbi FREDERICK, Dr. Fontana Attending Provider [phone] Shelbi FREDERICK, Dr. Fontana Referring Provider [phone] Gretchen Fisher Attending Provider [phone] Patrick CASTING MACHINE OPERATOR HELPER-C, Gretchen Referring Provider [phone] Nan FREDERICK, Dr. Mckay Attending Provider Mariana WILL, Dr. Gongora Attending Provider Mariana WILL, Dr. Gongora Emergency Provider Andosei WILL, Dr. Valles Attending Provider Andosei WILL, Dr. Valles Emergency Provider Isac FREDERICK, Dr. Mahoney Attending Provider Isac FREDERICK, Dr. Mahoney Emergency Provider [phone] Roxana FREDERICK, Dr. Bowling Attending Provider Roxana FREDERICK, Dr. Bowling Referring Provider Troy FREDERICK, Dr. Mendez Attending Provider Allison Verduzco Attending Provider [phone] Maurice Epstein Attending Provider [phone] Maurice Epstein Referring Provider [phone] VeronicaFlex WILL, Dr. Mejia Emergency Provider SHAWN SHEA Attending Unavailable MANUEL LOGAN Primary Care Unavailable PRIYA SALEH Attending Unavailable MANUEL LOGAN Primary Care Unavailable MANUEL LOGAN Primary Care Unavailable SHAWN SHEA Attending Unavailable SHELBI, EFEWONGBE B Primary Care Unavailable PRIYA SALEH Attending Unavailable SHAWN SHEA Attending Unavailable SHAWN SHEA Referring Unavailable SHELBI, EFEWONGBE B Primary Care Unavailable SHAWN SHEA Attending Unavailable MANUEL LOGAN Primary Care Unavailable Shelbi FREDERICK, Dr. Fontana Primary Care Physician Shelbi FREDERICK, Dr. Fontana Referring Provider [phone] Patrick WOODARD-CGretchen Attending Physician Nan FREDERICK, Dr. Mckay Attending Physician Mariana WILL, Dr. Gongora Attending Physician Mariana WILL, Dr. Gongora Emergency Department Physician And DO, Dr. Valles Attending Physician Keyona DO, Dr. Valles Emergency Department Physic wilda Isac FREDERICK, Dr. Mahoney Attending Physician Isac FREDERICK, Dr. Mahoney Emergency Department Physici an Roxana FREDERICK, Dr. Bowling Attending Physician Troy FREDERICK, Dr. Mendez Attending Physician Jorge Luis CASTING MACHINE OPERATOR HELPER-C, Allison Attending Physician Maurice Epstein Attending Physician [facility], Dr. Mejia Attending Physician [facility], Dr. Mejia Emergency Departmen t Physician Travon FREDERICK, Dr. Lopez Attending Physician Zachary WOODARD-CAilin Attending Physician Shelbi FREDERICK, Dr. Fontana Primary Care Physician Patrick WOODARD-CGretchen Attending Physician Shelbi FREDERICK, Dr. Fontana Referring Provider Livan FREDERICK, Dr. Alvarez Attending Physician Shelbi FREDERICK, Dr. Fontana Primary Care Physician Woo FREDERICK, Dr. Murphy Attending Physician Woo FREDERICK, Dr. Murphy Referring Provider Vanessa Simmons Attending Unavailable Oleghe, Efewongbe Primary Care Unavailable Oleghe, Efewongbe Referring Unavailable Oleghe, Efewongbe Primary Care Unavailable Oleghe, Efewongbe Attending Unavailable Oleghe, Efewongbe Referring Unavailable Oleghe, Efewongbe Primary Care Unavailable Oleghe, Efewongbe Attending Unavailable Patrick CASTING MACHINE OPERATOR HELPER, Gretchen Attending Unavailable Gretchen Nguyen NP Referring Unavailable Oleghe, Efewongbe Primary Care Unavailable Oleghe, Efewongbe Primary Care Unavailable Rolan Peña Attending Unavailable Hai Rand Attending Unavailable Oleghe, Efewongbe Primary Care Unavailable Souleymane Curiel Attending Unavailable Oleghe, Efewongbe Referring Unavailable Oleghe, Efewongbe Primary Care Unavailable Oleghe, Efewongbe Referring Unavailable Oleghe, Efewongbe Primary Care Unavailable Patrick WOODARD, Gretchen Attending Unavailable Antonio Licona Attending Unavailable Zachary CASTING MACHINE OPERATOR HELPER, Ailin Attending Unavailable Oleghe, Efewongbe Referring Unavailable Oleghe, Efewongbe Primary Care Unavailable Jeffrey Berkowitz Attending Unavailable Woo Jeffrey Referring Unavailable Oleghe, Efewongbe Primary Care Unavailable Patrick WOODARD, Gretchen Attending Unavailable Oleghe, Efewongbe Primary Care Unavailable Gretchen Nguyen NP Referring Unavailable Oleghe, Efewongbe Attending Unavailable Oleghe, Efewongbe Referring Unavailable Oleghe, Efewongbe Primary Care Unavailable Oleghe, Efewongbe Attending Unavailable Oleghe, Efewongbe Referring Unavailable Oleghe, Efewongbe Primary Care Unavailable Oleghe, Efewongbe Attending Unavailable Oleghe, Efewongbe Referring Unavailable Oleghe, Efewongbe Primary Care Unavailable Oleghe, Efewongbe Primary Care Unavailable Odalis Schmidt Attending Unavailable Odalis Schmidt Referring Unavailable Roberto Tanner Attending Unavailabl e Oleghe, Efewongbe Primary Care Unavailable Oleghe, Efewongbe Referring Unavailable Oleghe, Efewongbe Primary Care Unavailable Ava Cardozo Attending Unavailabl e Oleghe, Efewongbe Referring Unavailable Oleghe, Efewongbe Primary Care Unavailable Oleghe, Efewongbe Attending Unavailable Oleghe, Efewongbe Attending Unavailable Oleghe, Efewongbe Referring Unavailable Oleghe, Efewongbe Primary Care Unavailable Denzel Chau Attending Unavailable Oleghe, Efewongbe Primary Care Unavailable Maurice Epstein Attending Unavailable Maurice Epstein Referring Unavailable Oleghe, Efewongbe Primary Care Unavailable Maurice Epstein Attending Unavailable Maurice Epstein Referring Unavailable Oleghe, Efewongbe Primary Care Unavailable Oleghe, Efewongbe Referring Unavailable Maurice Epstein Attending Unavailable Oleghe, Efewongbe Primary Care Unavailable Oleghe, Efewongbe Referring Unavailable WayMaurice Thompson Attending Unavailable Oleghe, Efewongbe Primary Care Unavailable Oleghe, Efewongbe Referring Unavailable Oleghe, Efewongbe Primary Care Unavailable Oleghe, Efewongbe Attending Unavailable Oleghe, Efewongbe Referring Unavailable Oleghe, Efewongbe Primary Care Unavailable Ailin Sharma NP Attending Unavailable Oleghe, Efewongbe Attending Unavailable Oleghe, Efewongbe Referring Unavailable Oleghe, Efewongbe Primary Care Unavailable Oleghe, Efewongbe Referring Unavailable Oleghe, Efewongbe Primary Care Unavailable Odalis Schmidt Attending Unavailable Oleghe, Efewongbe Referring Unavailable Jeffrey Berkowitz Attending Unavailable Woody Montana Attending UnavailGretchen Bustamante NP Referring Unavailable Oleghe, Efewongbe Primary Care Unavailable Oleghe, Efewongbe Referring Unavailable Oleghe, Efewongbe Primary Care Unavailable Allison Kang Attending Unavailable Oleghe, Efewongbe Primary Care Unavailable Gretchen Nguyen NP Referring Unavailable Gretchen Nguyen NP Attending Unavailable Oleghe, Efewongbe Referring Unavailable Oleghe, Efewongbe Primary Care Unavailable Odalis Schmidt Attending Unavailable OLEGHE, EFEWONGBE B Primary Care Unavailable ODALIS SCHMIDT Referring Unavail able CORINA NGUYEN Attending Unavailable OLEGHE, EFEWONGBE B Primary Care Unavailable CORINA NGUYEN Referring Unavailable Allergies Allergy Classification Reported Allergen(s) Allergy Type Date of Onset Reaction(s) Facility amLODIPine (1 source) amLODIPine Drug Allergy 6 Other: See Comments [facility] HMG-CoA Reductase Inhibitors (statins) (1 source) atorvastatin Drug Allergy 1 Intolerance [facility] Metoprolol (1 source) Metoprolol Drug Allergy 4 Unknown [facility] Mold Extract (1 source) Mold Extract Drug Allergy 7 [facility] Penicillins (antibiotic) (1 source) Penicillins Drug Allergy 0 [facility] Work Phone: (20 sources) Metoprolol; Translations: [METOPROLOL] Drug Allergy 2 Unknown, Other: See Comments [facility] (20 sources) Penicillins; Translations: [PENICILLINS] Allergy to substance 0 [facility] Work Phone: (20 sources) amLODIPine; Translations: [AMLODIPINE] Drug Allergy 6 Other: See Comments [facility] (20 sources) atorvastatin; Translations: [ATORVASTATIN CALCIUM] Drug Allergy 1 Intolerance [facility] (20 sources) Mold Extract; Translations: [MOLD] Drug Allergy 7 Other: See Comments [facility] (20 sources) long haired dogs and cats [Other] Propensity to adverse reactions 7 Other: See Comments [facility] (18 sources) beta-Blocking agent; Translations: [BETA-BLOCKERS (BETA-ADRENERGIC BLOCKING AGTS)] Drug Allergy 0 Other: See Comments, Shortness of Breath [facility] (20 sources) bee venom protein (honey bee) Allergy to substance 5 Swelling [facility] (10 sources) Baclofen; Translations: [BACLOFEN] Drug Allergy 5 Mental Status Change [facility] (2 sources) OTHER; Translations: [OTHER] Propensity to adverse reactions (disorder) 7 [facility] Repository (1 source) Baclofen Drug Allergy 5 [facility] Repository (1 source) Metoprolol Drug Allergy 5 [facility] (1 source) bee venom protein (honey bee) Drug allergy (disorder) 5 [facility] Repository Medications Current Medications Medication Drug Class(es) Dates Sig (Normalized) Sig (Original) acetaminophen 500 mg oral tablet (20 sources) Start: 12-30-2023 Start: 12-30-2023 take 1000 mg by mout h every six hours as needed Acetaminophen Active 1000 MG PO EVERY 6 HOURS NEEDED 0 December 30, 2023 12:00am Start: 06-09-2020 End: 12-02-2023 Start: 06-09-2020 End: 12-02-2023 take 650 mg [...] daily 60 click tube Start: 08-06-2020 End: 05-18-2021 Arthritis Compound Discontin ued TOPICAL August 06, 2020 12:00am February 03, 2021 1:04pm Diclofenac 3%, Lidocaine 3%, Baclofen 2% 1 click=o.25g 1 click topical daily 60 click tube atorvastatin 40 mg oral tabl et (20 sources) HMG-CoA Reductase Inhibitor Start: 05-20-2025 End: 06-26-2025 Start: 05-25-2019 End: 05-20-2025 Start: 11-22-2016 End: 05-14-2025 Comment on above: Take 1 tablet by paula th daily at bedtime. For cholesterol. benoxinate hydrochloride 4 mg/ml / fluorescein sodium 3 mg/ml ophthalmic solution (10 sources) Diagnostic Dye Start: 05-27-2025 End: 05-27-2025 fluorescein-benox inate 0.3-0.4 % 1 drop (FLURESS) Start: 05-27-2025 End: 05-27-2025 1 drop, BOTH EYES, DIRECT ED, Starting on Tue05/27/25 at 1000, Until Tue05/27/25 at 2159, Administer for applanation tonometry. In the event of a Fluress shortage, administer 1 drop of Christel-Fluor into both eyes as directed for applanation tonometry., OPHT CLINIC MED ORDERS Start: 01-14-2025 End: 01-15-2025 fluorescein-benoxinate 0.3-0 .4 % 1 drop (FLURESS) Start: 11-26-2024 End: [...] the event of a Fluress shortage, administer [place]-Fluor 1 drop into both eyes as directed for applanation tonometry, OPHT CLINIC MED ORDERS Start: 03-12-2024 End: 03-13-2024 fluorescein-benoxinate 0.3-0 .4 % 1 Drop (FLURESS) Start: 11-07-2023 End: 11-08-2023 fluorescein-benoxinate 0.3-0 .4 % 1 Drop (FLURESS) Start: 07-04-2023 End: 07-05-2023 fluorescein-benoxinate 0.25- 0.4 % 1 Drop (FLURESS) brimonidine tartrate 2 mg/ml / brinzolamide 10 mg/ml ophthalmic suspension (20 sources) Carbonic Anhydrase Inhibitor, alpha-Adrenergic Agonist Start: 12-14-2024 Start: 12-14-2024 Brinzolamide-B rimonidine (Simbrinza) 1-0.2 % drops,suspension Active 1 NMA OPHTHALMIC DAILY December 14, 2024 12:00am Start: 11-26-2024 End: 05-27-2025 take 1 drop(s) into the eye(s) twice daily brinzolamide-brimonidine (SIMBRINZA) 1%- 0.2 % Ophth Susp Use 1 drop in both eyes two times a day. 30 mL 5 05/27/2025 Active Budesonide-Formoterol (20 sources) Corticosteroid, beta2-Adrenergic Agonist Start: 06-17-2025 Start: 12-14-2024 End: 06-17-2025 Start: 12-14-2024 Start: 12-14-2024 Budesonide-For moterol (Symbicort) 160-4.5 mcg/actuation HFA aerosol inhaler Active 2 NMA INHALATION TWICE A DAY 09 29December 14, 2024 1:44pm Asthma administer with spacer, rinse mouth after each use Start: 12-14-2024 Budesonide-For moterol (Symbicort) 160-4.5 mcg/actuation HFA aerosol inhaler Active 2 NMA INHALATION TWICE A DAY 1 December 14, 2024 1:44pm administer with spacer, rinse mouth after each use Start: 08-02-2024 End: 12-14-2024 Start: 08-02-2024 End: 12-14-2024 Budesonide-Formoterol (Symbi trish) 160-4.5 mcg/actuation HFA aerosol inhaler Discontinued 2 NMA INHALATION TWICE A DAY 1 3 August 02, 2024 3:13pm December 14, 2024 [...] after each use Start: 05-29-2024 End: 08-02-2024 Start: 05-29-2024 End: 08-02-2024 Budesonide-Formoterol (Symbi trish) [...] after each use Start: 05-29-2024 End: 05-29-2024 Start: 05-29-2024 End: 05-29-2024 Budesonide-Formoterol (Symbi trish) [...] after each use Start: 08-15-2023 End: 05-29-2024 Start: 08-15-2023 End: 05-29-2024 Budesonide-Formoterol (Symbi trish) [...] use Start: 08-15-2023 take 1 puff(s) by [facility] twice daily Budesonide-Formoterol (Symbicort) 160-4.5 mcg/actuation HFA aerosol inhaler Active 2 PUFF INHALATION TWICE A DAY August 15, 2023 3:45pm administer with spacer, rinse mouth after each use Start: 05-02-2023 End: 08-15-2023 Start: 05-02-2023 End: 08-15-2023 Budesonide-Formoterol (Symbi trish) 160-4.5 mcg/actuation HFA aerosol inhaler Discontinued 2 NMA INHALATION DAILY 3 3 May 02, 2023 5:56pm August 15, [...] puff(s) by mouth once daily Budesonide-Formoterol (Symbicort) 160-4.5 mcg/actuation HFA aerosol inhaler Discontinued 2 PUFF INHALATION DAILY May 02, 2023 5:56pm August 15, 2023 3:47pm administer with spacer, rinse mouth after each use Start: 05-02-2023 take 1 puff(s) by [facility] once daily Budesonide-Formoterol (Symbicort) 160-4.5 mcg/actuation HFA aerosol inhaler Active 2 PUFF INHALATION DAILY May 02, 2023 5:56pm administer with spacer, rinse mouth after each use Start: 08-04-2022 End: 05-02-2023 Start: 08-04-2022 End: 05-02-2023 Budesonide-Formoterol (Symbi trish) 160-4.5 mcg/actuation HFA aerosol inhaler Discontinued 2 NMA INHALATION DAILY August 04, 2022 3:03pm May 02, 2023 5:56pm administer with spacer, rinse mouth after each use Start: 08-04-2022 End: 05-02-2023 take 1 puff(s) by mouth once daily Budesonide-Formoterol (Symbicort) 160-4.5 mcg/actuation HFA aerosol inhaler Discontinued 2 PUFF INHALATION DAILY August 04, 2022 3:03pm May 02, 2023 5:56pm administer with spacer, rinse mouth after each use Start: 08-04-2022 take 1 puff(s) by [facility] once daily Budesonide-Formoterol (Symbicort) 160-4.5 mcg/actuation HFA aerosol inhaler Active 2 PUFF INHALATION DAILY August 04, 2022 3:03pm administer with spacer, rinse mouth after each use Start: 08-04-2022 take 1 puff(s) by [facility] once daily Budesonide-Formoterol (Symbicort) 160-4.5 mcg/actuation HFA aerosol inhaler Active 2 PUFF INHALATION DAILY August 04, 2022 2:03pm administer with spacer, rinse mouth after each use Start: 03-26-2022 End: 08-04-2022 Start: 03-26-2022 End: 08-04-2022 Budesonide-Formoterol (Symbi trish) [...] puff(s) by mouth twice daily Budesonide-Formoterol (Symbicort) 160-4.5 mcg/actuation HFA aerosol inhaler Discontinued 2 PUFF INHALATION TWICE A DAY March 26, 2022 8:23am August 04, 2022 3:03pm administer with spacer, rinse mouth after each use Start: 03-26-2022 End: 08-04-2022 take 1 puff(s) by mouth twice daily Budesonide-Formoterol (Symbicort) 160-4.5 mcg/actuation HFA aerosol inhaler Discontinued 2 PUFF INHALATION TWICE A DAY March 26, 2022 7:23am August 04, 2022 2:03pm administer with spacer, rinse mouth after each use Start: 11-25-2021 take 1 puff(s) by mo [facility] twice daily Budesonide-Formoterol (Symbicort) 160-4.5 mcg/actuation HFA aerosol inhaler Active 2 PUFF INHALATION TWICE A DAY November 25, 2021 9:47am administer with spacer, rinse mouth after each use Start: 11-25-2021 End: 03-26-2022 Start: 11-25-2021 End: 03-26-2022 Budesonide-Formoterol (Symbi trish) [...] puff(s) by mouth twice daily Budesonide-Formoterol (Symbicort) 160-4.5 mcg/actuation HFA aerosol inhaler Discontinued 2 PUFF INHALATION TWICE A DAY 1 November 25, 2021 1:00am March 26, 2022 8:23am administer with spacer, rinse mouth after each use Start: 11-25-2021 End: 03-26-2022 take 1 puff(s) by mouth twice daily Budesonide-Formoterol (Symbicort) 160-4.5 mcg/actuation HFA aerosol inhaler Discontinued 2 PUFF INHALATION TWICE A DAY November 25, 2021 12:00am March 26, 2022 7:23am administer with spacer, rinse mouth after each use Start: 11-23-2021 End: 11-25-2021 take 1 puff(s) by mouth twice daily Budesonide-Formoterol (Symbicort) 160-4.5 mcg/actuation HFA aerosol inhaler Discontinued 2 PUFF INHALATION TWICE A DAY November 23, 2021 5:20pm November 25, 2021 9:47am administer with spacer, rinse mouth after each use Start: 11-23-2021 End: 11-25-2021 Start: 11-23-2021 End: 11-25-2021 Budesonide-Formoterol (Symbi trish) [...] puff(s) by mouth twice daily Budesonide-Formoterol (Symbicort) 160-4.5 mcg/actuation HFA aerosol inhaler Discontinued 2 PUFF INHALATION TWICE A DAY 1 November 23, 2021 1:00am November 25, 2021 9:47am administer with spacer, rinse mouth after each use Start: 11-23-2021 End: 11-25-2021 take 1 puff(s) by mouth twice daily Budesonide-Formoterol (Symbicort) 160-4.5 mcg/actuation HFA aerosol inhaler Discontinued 2 PUFF INHALATION TWICE A DAY 1 November 23, 2021 12:00am November 25, 2021 8:47am administer with spacer, rinse mouth after each use take 2 puff(s) by mo [facility] once daily budesonide-formoterol (SYMBICORT) 160-4.5 mcg/actuation inhaler inhale 2 puffs by mouth once daily Active take 2 puff(s) by mo [facility] once daily budesonide-formoterol (SYMBICORT) 160-4.5 mcg/actuation inhaler inhale 2 puffs by mouth once daily 0 Active Comment on above: inhale 2 puffs by mo [facility] once daily Disability Placard (20 sources) Start: 12-01-2021 Disability Placard Active 0 .Route .MEDSUPPLY 1 December 01, 2021 11:10am Expires 12/01/2026 Start: 12-01-2021 Disability Alirio card Active 0 .Route .MEDSUPPLY 1 December 01, 2021 12:00am chronic respiratory distress J96.10 Expires 12/01/2026 Start: 12-01-2021 Disability Alirio card Active 0 .Route .MEDSUPPLY 1 December 01, 2021 12:00am Expires 12/01/2026 Start: 12-01-2021 Disability Alirio card Active 0 .Route .MEDSUPPLY 1 November 30, 2021 11:00pm Expires 12/01/2026 docusate sodium 50 mg / lluvia osides, group home 8.6 mg oral tablet (20 sources) Start: 01-23-2024 Start: 06-09-2020 End: 08-05-2020 Start: 06-09-2020 End: 08-05-2020 Sennosides-Docusate Sodium 1 [...] oral tablet (20 sources) Loop Diuretic Start: 06-26-2025 End: 06-26-2025 Start: 03-17-2025 End: 06-26-2025 Start: 10-23-2024 End: 03-17-2025 Start: 12-08-2023 End: 10-23-2024 Start: 12-08-2023 End: 05-14-2025 take 1 tablet by mouth once daily Furosemide 40 mg tablet Discontinued 40 mg PO daily 90 3 August 28, 2024 1:53pm October 23, 2024 3:31pm edema latanoprost 0.05 mg/ml / netarsudil 0.2 mg/ml ophthalmic solution (20 sources) Prostaglandin Analog, Rho Kinase Inhibitor Start: 12-02-2023 Start: 12-02-2023 Netarsudil-Lat anoprost (Rocklatan) 0.02-0.005 % drops Active 1 DRP OPHTHALMIC AT BEDTIME December 02, 2023 12:00am INSTILL 1 DROP INTO EACH EYE AT BEDTIME Start: 11-07-2023 End: 05-27-2025 take 1 drop(s) into the eye(s) once daily at bedtime ROCKLATAN 0.02-0.005 % ophthalmic solution Use 1 drop in both eyes daily at bedtime. 5 mL 11 05/27/2025 Active Start: 05-24-2023 End: 11-07-2023 take 1 [...] 11:00pm mometasone furoate 1 mg/ml topical cream (20 sources) Corticosteroid Start: 06-13-2013 mometasone (ELOCON) 0.1 [...] FACE, EYES, EYELIDS, AND DEEP FOLD AREAS. Ylippmvi-Hkk-Vp-L ycopen-Lutein (Centrum Silver) 0.4 mg-300 mcg- 250 mcg tablet (20 sources) Start: 12-02-2023 take 1 tablet by mouth once daily Iiemgqru-Ynf-Bq-Ly copen-Lutein (Centrum Silver) 0.4 mg-300 mcg- 250 mcg tablet Active 1 {tbl} PO DAILY December 02, 2023 12:00am supplement Start: 12-02-2023 take 1 tablet by paula once daily Fcbbhkla-Igp-Lp-Lycopen-Lutein (Centrum Silver) 0.4 mg-300 mcg- 250 mcg tablet Active 1 {tbl} PO DAILY December 02, 2023 12:00am Start: 12-02-2023 take 1 tablet by paula once daily Vdkxsmqt-Koj-Xh-Lycopen-Lutein (Centrum Silver) 0.4 mg-300 mcg- 250 mcg [...] Start: 07-24-2020 take 1 capsule by mo [facility] once daily multivitamin Active 1 CAP PO DAILY July 24, 2020 1:00am Start: 07-24-2020 take 1 capsule by mo [facility] once daily multivitamin Active 1 CAP PO [...] System) device Active 0 .Route 1 0 [place] 12th, 2023 5:24pm Moderate persistent asthma Moderate persistent [...] iron chewable (FLINTSTONES COMPLETE, IRON,) chewable tablet (20 sources) Start: 12-16-2015 take 1 tablet by [...] daily. phenylephrine hydrochloride 25 mg/ml ophthalmic solution (5 sources) alpha-1 Adrenergic Agonist Start: 05-27-2025 End: 05-27-2025 PHENYLephrine 2.5 % 1 drop (AK-DILATE, PEPE-SYNEPHRINE) Start: 05-27-2025 End: 05-27-2025 1 drop, BOTH EYES, DIRECT ED, Starting on Tue05/27/25 at 1000, Until Tue05/27/25 at 2159, Administer for dilation PROTECT FROM LIGHT, OPHT CLINIC MED ORDERS Start: 11-26-2024 End: 11-27-2024 PHENYLephrine 2.5 % 1 Drop ( AK-DILATE, PEPE-SYNEPHRINE) Start: 11-26-2024 End: 11-27-2024 1 Drop, BOTH EYES, DIRECT ED, Starting on Tue11/26/24 at 1330, Until Tue11/27/24 at 0129, Administer for dilation PROTECT FROM LIGHT, OPHT CLINIC MED ORDERS Start: 03-12-2024 End: 03-13-2024 PHENYLephrine 2.5 % 1 Drop ( AK-DILATE, PEPE-SYNEPHRINE) proparacaine hydrochloride 5 mg/ml ophthalmic solution (7 sources) Local Anesthetic Start: 05-27-2025 End: 05-27-2025 proparacaine 0.5 % 1 drop (ALCAINE) Start: 05-27-2025 End: 05-27-2025 1 drop, BOTH EYES, DIRECT ED, Starting on Tue05/27/25 at 1000, Until Tue05/27/25 at 2159, Administer for pneumo tonometry, tonopen tonometry, or pachymetry. In the event of a proparacaine shortage, administer 1 drop of tetracaine 0.5% ophthalmic drops into both eyes as directed for pneumo tonometry, tonopen tonometry, or pachymetry, OPHT CLINIC MED ORDERS Start: 01-14-2025 End: 01-15-2025 proparacaine 0.5 % 1 drop (A LCAINE) Start: 07-30-2024 End: 07-31-2024 proparacaine 0.5 % [...] glycol/peg 400 (SY STANE FREE, PF, OPHTHALMIC) (18 sources) propylene glycol /peg 400 (SYSTANE FREE, PF, OPHTHALMIC) Use 1 Drop in eyes as needed. Active propylene glycol /peg 400 (SYSTANE FREE, PF, OPHTHALMIC) Use 1 Drop in eyes as needed. 0 Active Comment on above: Use 1 Drop in eyes a s needed. tropicamide 10 mg/ml ophthalmic solution (5 sources) Anticholinergic Start: 05-27-2025 End: 05-27-2025 tropicamide 1 % 1 drop (MYDRIACYL) Start: 05-27-2025 End: 05-27-2025 1 drop, BOTH EYES, DIRECT ED, Starting on Tue05/27/25 at 1000, Until Tue05/27/25 at 2159, Administer for dilation, OPHT CLINIC MED ORDERS Start: 11-26-2024 End: 11-27-2024 tropicamide 1 % 1 Drop (MYDR IACYL) Start: 11-26-2024 End: 11-27-2024 1 Drop, BOTH EYES, DIRECT ED, Starting on Tue11/26/24 at 1330, Until Tue11/27/24 at 0129, Administer for dilation, OPHT CLINIC MED ORDERS Start: 03-12-2024 End: 03-13-2024 tropicamide 1 % 1 Drop (MYDR IACYL) vitamin D3-vitamin K2 1,250-200 mcg cap (4 sources) take 1 tablet by paula th once daily vitamin D3-vitamin K2 1,250-200 mcg cap Take 1 tablet by mouth once daily. Active Completed/Discontinued Medications Medication Drug Class(es) Dates Sig (Normalized) Sig (Original) albuterol 0.83 mg/ml inhalation solution (20 sources) beta2-Adrenergic Agonist Start: 01-04-2024 End: 05-20-2025 Start: 06-08-2023 End: 08-15-2023 Start: 06-08-2023 End: 08-15-2023 take 2.5 mg by inhalation every four hours as needed for wheezing Albuterol Sulfate 2.5 mg /3 mL (0.083 %) solution for nebulization Discontinued 2.5 mg INHALATION Q4H as needed for shortness of breath or wheezing 90 4 June 08, 2023 10:30am August 15, 2023 3:45pm Start: 04-30-2023 End: 06-08-2023 Start: 04-30-2023 End: 06-08-2023 take 2.5 mg [...] 06, 2021 9:09am Start: 05-25-2019 End: 04-28-2023 Start: 05-25-2019 End: 04-28-2023 Albuterol Sulfate (Ventolin [...] tablet (20 sources) Factor Xa Inhibitor Start: 12-03-2021 End: 06-26-2025 Comment on above: Take 1 tablet by paula th two times a day. Arthritis Pain Compound (15 sources) Start: 06-29-2020 [...] sources) Vitamin C Start: 06-29-2020 End: 08-05-2020 aspirin 81 mg delayed releas e oral tablet (20 sources) Platelet Aggregation Inhibitor, Nonsteroidal Anti-inflammatory Drug Start: 12-06-2016 End: 04-19-2025 Start: 11-21-2006 End: 05-14-2025 ASPIRIN 81 MG TAB Take one(1 ) tablet daily. 0 11/21/2006 05/14/2025 Discontinued (Course of therapy completed) Comment on above: Take one(1) tablet d aily. baclofen 10 mg oral tablet (20 sources) gamma-Aminobutyric Acid-ergic Agonist Start: 05-17-2025 End: 06-07-2025 Start: 11-02-2016 End: 05-14-2025 Comment on above: Take 1 tablet by paula three times daily as needed (muscle spasms). brimonidine tartrate 1 mg/ml ophthalmic solution (20 sources) alpha-Adrenergic Agonist Start: 08-15-2023 End: 01-14-2025 Start: 08-15-2023 End: 12-14-2024 take 1 drop(s) [...] twice a day Start: 06-02-2019 End: 12-29-2022 Start: 06-02-2019 End: 12-29-2022 Brimonidine 5 ML drops Disco ntinued 1 NMA EACH EYE TWICE A DAY June 02, 2019 12:00am December 29, 2022 2:14pm glaucoma Start: 12-06-2016 End: 05-25-2019 Start: 12-06-2016 End: 05-25-2019 Brimonidine 1 DROP [...] sources) Vitamin D Start: 06-09-2020 End: 08-05-2020 Start: 06-09-2020 End: 08-05-2020 Calcium Carbonate-Vitamin D3 [...] Jayden, beta-Adrenergic Jayden Start: 04-20-2024 End: 06-14-2024 Start: 12-08-2023 End: 05-13-2025 Start: 12-08-2023 End: 04-20-2024 Start: 12-08-2023 End: 04-19-2024 take 1 tablet by mouth twice daily at mealtime Carvedilol 6.25 mg tablet Discontinued 6.25 mg PO TWICE DAILY WITH MEALS 180 January 09, 2024 5:03pm January 23, 2024 2:12pm cefdinir 300 mg oral capsule (20 sources) Cephalosporin Antibacterial Start: 12-08-2023 End: 12-20-2023 cephalexin 500 mg oral capsu le (14 sources) Cephalosporin Antibacterial Start: 03-17-2025 End: 04-19-2025 cetirizine hydrochloride 10 mg oral capsule (20 sources) Histamine-1 Receptor Antagonist Start: 06-02-2019 End: 12-27-2023 Start: 01-19-2013 End: 05-20-2025 Comment on above: Take 1 tablet by paula th once daily. cholecalciferol 0.05 mg oral tablet (20 sources) Vitamin D Start: 11-19-2020 End: 05-20-2025 ciprofloxacin 500 mg oral tablet (20 sources) Quinolone Antimicrobial Start: 12-21-2023 End: 12-30-2023 Citrulline (20 sources) Start: 08-05-2020 End: 02-03-2021 Citrulline Discontinued EACH [...] topical cream (20 sources) Corticosteroid Start: 03-24-2023 clobetasol (TE MOVATE) 0.05 % cream apply 1 APPLICATION topically once daily if needed for rash 03/24/2023 Active Start: 07-24-2020 End: 12-02-2023 Start: 07-24-2020 End: 12-02-2023 Clobetasol 0.05 % cream Disc ontinued 1 NMA TOPICAL DAILY as needed for rash 60 2 March 24, 2023 5:07pm December 02, 2023 3:07pm Start: 07-24-2020 End: 12-02-2023 Clobetasol 0.05 % cream Disc ontinued 1 NMA TOPICAL DAILY as needed July 24, 2020 1:00am May 14, 2021 4:25pm Start: 01-28-2020 End: 06-09-2020 Comment on above: apply 1 APPLICATION topically once daily if needed for rash clopidogrel 75 mg oral table t (20 sources) P2Y12 Platelet Inhibitor Start: 06-02-2019 End: 08-05-2020 Start: 06-02-2019 End: 08-05-2020 take 1 tablet by mouth once daily Clopidogrel 75 mg tablet Discontinued 75 mg PO DAILY 90 3 October 23, 2019 2:49pm August 05, 2020 3:54pm blood thinner dorzolamide 20 mg/ml ophthal jacoby solution (20 sources) Carbonic Anhydrase Inhibitor Start: 12-29-2022 End: 08-15-2023 Start: 12-29-2022 End: 08-15-2023 Dorzolamide 2 % drops Discon tinued 1 NMA OPHTHALMIC December 29, 2022 12:00am August 15, 2023 3:46pm Start: 12-29-2022 End: 08-15-2023 Dorzolamide Discontinued 1 D RP OPHTHALMIC December 29, 2022 12:00am August 15, 2023 3:46pm erythromycin 0.005 mg/mg ophthalmic ointment (20 sources) Macrolide, Macrolide Antimicrobial Start: 12-29-2022 End: 12-02-2023 Start: 12-29-2022 End: 12-02-2023 Erythromycin Discontinued G [...] (20 sources) Dietary Cholesterol Absorption Inhibitor Start: 12-06-2016 End: 05-13-2025 Comment on above: TAKE ONE TABLET BY M OUT EVERY DAY famotidine 20 mg oral tablet (20 sources) Histamine-2 Receptor Antagonist Start: 06-29-2020 End: 09-10-2024 Start: 06-29-2020 End: 08-06-2020 take 2 tablets [...] 325 mg oral tablet (20 sources) Start: 06-29-2020 End: 05-20-2025 Start: 06-29-2020 End: 07-23-2021 take 1 tablet by mouth once daily Ferrous Sulfate 325 mg (65 mg iron) tablet Discontinued 325 mg PO DAILY@1200 90 1 May 06, 2021 8:09am July 23, 2021 10:28am ferrous sulfate 325 mg (65 mg iron) tablet Take 1 tablet by mouth every 48 hours. Active Comment on above: Take 1 tablet by paula th every 48 hours. finasteride 5 mg oral tablet (20 sources) 5-alpha Reductase Inhibitor Start: 01-01-2009 End: 09-06-2024 Comment on above: Take one(1) tablet d aily. Fluad Quad (65yr up)(PF) 60 mcg (15 mcg x 4)/0.5mL IM syringe (flu vac (2 sources) Start: 06-23-2021 End: 06-23-2021 Fluad Quad (65yr up)(PF) 60 mcg (15 mcg x 4)/0.5mL IM syringe (flu vac Discontinued 60 MCG IM ONCE 0.5 June 23, 2021 11:30am June 23, 2021 12:04pm 120 actuat formoterol fumarate 0.005 mg/actuat / mometasone furoate 0.2 mg/actuat metered dose inhaler (20 sources) Corticosteroid, beta2-Adrenergic Agonist Start: 09-23-2021 End: 11-23-2021 Start: 09-23-2021 End: 11-23-2021 Mometasone-Formoterol (Duler a) 200-5 mcg/actuation HFA aerosol inhaler Discontinued 2 NMA INHALATION TWICE A DAY 13 September 23, 2021 1:00am November 23, 2021 5:21pm Start: 09-23-2021 End: 11-23-2021 take 1 puff(s) by inhalation twice daily Mometasone-Formoterol (Dulera) 200-5 mcg/actuation HFA aerosol inhaler Discontinued 2 PUFF INHALATION TWICE A DAY 13 September 23, 2021 1:00am November 23, 2021 5:21pm 12 hr guaiFENesin 1200 mg ex tended release oral tablet (20 sources) Start: 06-29-2023 End: 12-30-2023 Start: 06-29-2023 End: 12-30-2023 take 1200 mg by mouth every twelve hours Guaifenesin Discontinued 1200 MG PO Q12H 60 June 29, 2023 12:00am December 30, 2023 1:53pm hydrocortisone 25 mg/ml topi cabrera cream (20 sources) Corticosteroid Start: 01-04-2024 End: 03-17-2025 Start: 10-16-2013 hydrocortisone 2.5 % cream Apply 1 application to affected area twice daily. 80 g 5 10/16/2013 Active Comment on above: Apply 1 application to affected area twice daily. ibuprofen 200 mg oral tablet (17 sources) Nonsteroidal Anti-inflammatory Drug Start: 7 End: take 1 tablet by mouth twice daily [...] Converting Enzyme Inhibitor Start: 7 End: 5 Comment on above: Take 1 tablet by paula th once daily. Take 2.5 mg by mouth once daily. loratadine 10 mg oral tablet (20 sources) Start: 4 End: 4 loteprednol etabonate (EYSUVIS) 0.25 % drps (15 sources) End: 5 loteprednol etabonate (EYSUVIS) 0.25 % drps Use [...] suspension (20 sources) Start: 06-02-2019 End: 06-27-2019 Start: 06-02-2019 End: 06-27-2019 take 500 mg by mouth at bedtime Magnesium Hydroxide 40 0 MG/5 ML suspension Discontinued 500 mg PO AT BEDTIME June 02, 2019 12:00am June 27, 2019 1:29pm constipation Start: 12-06-2016 End: 05-25-2019 Start: 12-06-2016 End: 05-25-2019 take 1 mL [...] Comment on above: 2-4 tablets at bedti ga for constipation. magnesium oxide 500 mg oral tablet (20 sources) Start: 08-05-2020 End: 01-23-2024 Start: 08-05-2020 End: 01-23-2024 Magnesium Oxide (Cornejo) 5 00 mg tablet Discontinued 1500 mg PO AT BEDTIME August 05, 2020 1:00am January 23, 2024 1:36pm Supplement Start: 06-27-2019 End: 07-14-2020 Start: 06-27-2019 End: 07-14-2020 Magnesium Oxide (Cornejo) [...] July 14, 2020 1:19pm netarsudil 0.2 mg/ml ophthal jacoby solution (20 sources) Rho Kinase Inhibitor Start: 06-06-2020 End: 08-15-2023 Start: 06-02-2019 End: 08-29-2019 Nirmatrelvir-Ritonavir (6 sources) Start: 11-30-2024 End: 12-14-2024 Nirmatrelvir-Ritonavir (Paxl ovid) [...] for 5 days PO nitroglycerin 0.4 mg subling ual tablet (20 sources) Nitrate Vasodilator Start: 11-12-2016 End: 05-01-2024 Comment on above: Dissolve 1 tablet un ilv the tongue every 5 minutes as needed for Chest Pain (Max of 3 tabs.). nystatin [id number] unt/ml / triamcinolone acetonide 1 mg/ml topical cream (20 sources) Polyene Antifungal, Corticosteroid Start: 07-30-2021 End: 03-01-2022 Start: 07-30-2021 End: 03-01-2022 Nystatin-Triamcinolone 100,0 00-0.1 unit/g-% cream Discontinued 1 NMA TOPICAL TWICE A DAY 60 1 July 30, 2021 1:00am March 01, 2022 2:09pm Start: 07-30-2021 End: 03-01-2022 Nystatin-Triamcinolone Disco ntinued 1 APPLIC TOPICAL TWICE A DAY 60 July 30, 2021 1:00am March 01, 2022 2:09pm omeprazole 20 mg delayed rel ease oral tablet (20 sources) Proton Pump Inhibitor Start: 12-06-2016 End: 05-25-2019 Start: 12-06-2016 End: 05-25-2019 Omeprazole 20 MG tablet,isabel yed release (/EC) Discontinued 20 mg PO December 06, 2016 12:00am May 25, 2019 9:40am Start: 11-22-2016 End: 05-14-2025 take 1 capsule by mouth once daily before breakfast omeprazole (PRILOSEC) 20 mg capsule Indications: Atherosclerosis of [place] coronary artery of [place] heart without angina pectoris Take 20 mg by mouth daily before breakfast. 1/2 hr before meal. 30 capsule 11/22/2016 05/14/2025 Discontinued (Course of therapy completed) Comment on above: Take 1 capsule by mo ut daily before breakfast. 1/2 hr before meal. Take 20 mg by mouth daily before breakfast. 1/2 hr before meal. oxyCODONE hydrochloride 5 mg oral tablet (20 sources) Opioid Agonist Start: 06-29-2020 End: 06-29-2020 Start: 06-29-2020 End: 06-29-2020 Start: 06-29-2020 End: 06-29-2020 Start: 06-29-2020 End: 06-29-2020 Start: 06-29-2020 End: 06-29-2020 Start: 06-29-2020 End: 06-29-2020 Start: 06-29-2020 End: 06-29-2020 Start: 06-29-2020 End: 06-29-2020 take 1 tablet [...] Taper as able when clear polymyxin b 84532 unt/ml / trimethoprim 1 mg/ml ophthalmic solution (20 sources) Dihydrofolate Reductase Inhibitor Antibacterial, Polymyxin-class Antibacterial Start: 08-09-2024 End: 05-14-2025 microencapsulated potassium chloride 10 meq extended release oral tablet (20 sources) Start: 12-30-2023 End: 11-15-2024 Start: 12-08-2023 End: 12-30-2023 predniSONE 10 mg oral tablet (20 sources) Start: 06-29-2023 End: 05-13-2025 Start: 01-24-2023 End: 06-29-2023 Start: 01-24-2023 End: 06-29-2023 Prednisone 5 mg tablets,dose pack Discontinued 5 mg PO As Directed 21 January 24, 2023 12:00am June 29, 2023 1:07pm Sprain of right wrist Extensor tenosynovitis of right wrist Unspecified sprain of right wrist, initial encounter Other synovitis and tenosynovitis, right forearm right wrist extensor tenosyno see taper instructions Comment on above: take 4 tablets by mo [facility] daily for 3 days then 3 daily for 3 days ... (REFER TO PRESCRIPTION NOTES). rocklan (20 sources) Start: 12-29-2022 End: 08-15-2023 rocklan Discontinued EACH EYE December 29, 2022 12:00am August 15, 2023 3:46pm Start: 12-29-2022 rocklan Active EACH EYE December 29, 2022 12:00am ticagrelor 90 mg oral tablet (20 sources) Start: 11-22-2016 End: 05-14-2025 Comment on above: Take 1 tablet by paula twice daily. Take 90 mg by mouth two times a day. travoprost 0.04 mg/ml ophthalmic solution (20 sources) Prostaglandin Analog Start: 01-28-2010 End: 01-23-2024 Comment on above: Use one (1) drop eac h eye one (1) time daily. triamcinolone acetonide 40 mg/ml injectable suspension (2 sources) Corticosteroid Start: 11-30-2021 End: 11-30-2021 Kenalog (triamcinolone acetonide) 40 mg/mL suspension for injection Discontinued 80 MG INTRAARTIC ONCE 2 November 30, 2021 1:43pm November 30, 2021 2:44pm ursodiol 500 mg oral tablet (20 sources) Bile Acid Start: 12-14-2024 End: 07-02-2025 Start: 12-30-2023 End: 12-14-2024 Start: 12-30-2023 take 500 mg by mouth twice daily at mealtime Ursodiol Active 500 MG PO TWICE DAILY WITH MEALS 0 December 30, 2023 12:00am Start: 12-01-2021 End: 12-30-2023 Start: 01-27-2017 End: 05-14-2025 take 2 tablets by mouth twice daily ursodiol (DANNIELLE) 250 mg tablet Take 2 tablets by mouth twice daily. 120 tablet 2 01/27/2017 05/14/2025 Discontinued (Course of therapy completed) Start: 12-06-2016 End: 12-01-2021 Start: 12-06-2016 End: 12-01-2021 take 500 mg by mouth twice daily at mealtime Ursodiol Discontinued 500 MG PO TWICE DAILY WITH MEALS 180 August 25, 2021 4:20pm December 01, 2021 11:32am Comment on above: Take 2 tablets by mo uth twice daily. vitamin b12 1 mg oral capsul e (20 sources) Vitamin B12 Start: 11-19-2020 End: 08-15-2024 (20 sources) Start: 02-05-2025 End: 05-20-2025 Start: 11-30-2024 End: 12-14-2024 Start: 03-12-2024 End: 02-05-2025 Start: 01-04-2024 End: 05-20-2025 Start: 12-02-2023 End: 05-20-2025 Start: 11-23-2023 End: 03-12-2024 Start: 06-29-2023 End: 12-30-2023 Start: 04-30-2023 Start: 04-30-2023 End: 04-30-2023 Start: 12-29-2022 End: 08-15-2023 Start: 02-08-2022 End: 05-20-2025 Start: 12-01-2021 Start: 02-03-2021 End: 02-08-2022 Start: 02-03-2021 End: 12-02-2023 Start: 08-06-2020 End: 02-03-2021 Start: 08-05-2020 End: 02-03-2021 Start: 07-24-2020 End: 12-02-2023 Start: 06-29-2020 End: 07-14-2020 Start: 05-25-2019 End: 07-14-2020 Start: 12-06-2016 End: 05-25-2019 Problems Active Problems Problem Classification Problem Date Documented Da te Episodic/Chronic Acute and unspecified renal failure (20 sources) Acute renal failure syndrome; Translations: [Acute kidney failure, unspecified] Onset: 5 12-03-2023 Episodic Acute myocardial infarction (20 sources) [...] obstruction] Onset: 9 Resolved: 7 06-02-2019 Episodic Blindness and vision defects (13 sources) Blurring of visual image; Translations: [Other visual disturbances] Onset: 5 05-20-2025 Episodic Calculus of urinary tract (20 sources) Ureteric stone; Translations: [Calculus of ureter] Onset: 9 Resolved: 7 12-06-2023 Episodic Cardiac dysrhythmias (20 sources) Atrial fibrillation; Translations: [Unspecified atrial fibrillation] Onset: 5 Chronic Cardiac dysrhythmias (20 sources) Sinus bradycardia; Translations: [Bradycardia, unspecified] Onset: 2 Episodic Coagulation and hemorrhagic disorders (20 sources) Platelet [...] Coronary atherosclerosis; Translations: [Atherosclerotic heart disease of [place] coronary artery without angina pectoris] Onset: 0 [...] mid LAD 11/15/16 Deficiency and other anemia (20 sources) Iron deficiency anemia due to blood [...] viral diseases; Translations: [Exposure to COVID-19 virus] Onset: 5 11-30-2024 Episodic Inflammation; infection of eye (except that caused by tuberculosis or sexually transmitteddisease) (20 sources) Blepharitis; Translations: [Squamous blepharitis right eye, upper and lower eyelids] Onset: 5 08-14-2024 Episodic Malaise and fatigue (20 sources) Asthenia; Translations: [Other malaise] Episodic Nonspecific chest pain (16 sources) Chest pain; Translations: [Chest pain, unspecified] 05-09-2025 Episodic Nutritional deficiencies (20 sources) Vitamin D deficiency; Translations: [Vitamin D deficiency, unspecified] Onset: Chronic Occlusion or stenosis of precerebral arteries (20 sources) Stenosis of left vertebral artery; Translations: [Occlusion and stenosis of left vertebral artery] Onset: 5 05-20-2025 Chronic Osteoarthritis (20 sources) Osteoarthritis; Translations: [Unspecified osteoarthritis, unspecified site] Onset: 7 11-21-2006 Chronic Other aftercare (20 sources) 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; Translations: [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] 10-20-2023 Episodic Other aftercare (17 sources) Long-term current use of diuretic; Translations: [Encounter for therapeutic drug level monitoring] 03-07-2025 Episodic Other aftercare (20 sources) Long-term current use of anticoagulant; 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: [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] Onset: 5 03-17-2025 Episodic Other aftercare (1 source) [facility] (current) use of anticoagulants; Translations: [[facility] current use of anticoagulant therapy] Onset: 5 Episodic Other and unspecified benign neoplasm (20 sources) History of polyp of colon; Translations: [Personal history of colonic polyps] Onset: 7 Resolved: 7 09-27-2022 Episodic Other circulatory disease (20 sources) Orthostatic hypotension; Translations: [Orthostatic hypotension] Onset: 3 09-27-2022 Episodic Other circulatory disease (16 sources) H/O: atrial fibrillation; Translations: [Personal history of other diseases of the circulatory system] Onset: 5 03-17-2025 Episodic Other connective tissue disease (20 sources) Foot pain; Translations: [Pain in right foot] 09-27-2022 Episodic Other connective tissue disease (20 sources) Extensor tenosynovitis of wrist; Translations: [Other synovitis and tenosynovitis, right forearm] 01-24-2023 Episodic Other connective tissue disease (4 sources) Other synovitis and tenosynovitis, right forearm; Translations: [Other tenosynovitis of hand and wrist] 01-24-2023 Episodic Other connective tissue disease (12 sources) Pain in right foot; Translations: [Pain in right foot] 09-27-2022 Episodic Other connective tissue disease (1 source) Facial weakness; Translations: [Facial weakness] Onset: Episodic Other eye disorders (2 sources) Bilateral eye band keratopathy; 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, bilateral] 06-01-2023 Episodic Other eye disorders (1 source) Bilateral red eyes; Translations: [Other specified disorders of eye and adnexa] 08-14-2024 Episodic Other gastrointestinal disorders (20 sources) Chronic idiopathic constipation; Translations: [Chronic idiopathic constipation] Onset: 7 11-02-2016 Chronic Other gastrointestinal disorders (20 sources) Occult blood in stools; Translations: [Other fecal abnormalities] Onset: 5 12-23-2021 Episodic Other gastrointestinal disorders (20 sources) Dysphagia; Translations: [Dysphagia, unspecified] Onset: 5 11-15-2024 Episodic Other gastrointestinal disorders (5 sources) History of lower gastrointestinal bleed; Translations: [Personal history of other diseases of the digestive system] Onset: 5 05-13-2025 Episodic Other gastrointestinal disorders (1 source) Personal history of other diseases of the digestive system; Translations: [History of lower GI bleeding] Onset: 5 Episodic Other hereditary and degenerative nervous system conditions (4 sources) Mild cognitive disorder ; Translations: [Mild cognitive impairment, so stated] Onset: 4 05-13-2025 Chronic Other inflammatory condition of skin (20 sources) Psoriasis; Translations: [Psoriasis, unspecified] Onset: 7 Resolved: 7 09-27-2022 Chronic Other inflammatory condition of skin (20 sources) Rosacea; Translations: [Rosacea, unspecified] Onset: 8 08-30-2008 Chronic Other inflammatory condition of skin (2 sources) Psoriasis, unspecified; Translations: [Other psoriasis] 03-24-2023 Chronic Other injuries and conditions due to external causes (20 sources) Fracture of bone; Translations: [Unspecified multiple injuries, initial encounter] Onset: 5 09-27-2022 Episodic Comment on above: Bilateral wrists, le ft patella and nasal bone Other injuries and conditions due to external causes (19 sources) Injury of right foot; Translations: [Unspecified injury of right foot, initial encounter] Onset: 5 03-10-2025 Episodic Other liver diseases (20 sources) Disease of liver; Translations: [Liver disease, unspecified] Onset: 9 Resolved: 7 07-24-2020 Chronic Other liver diseases (20 sources) Primary biliary cholangitis; 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] Onset: 1 11-02-2016 Chronic Other liver diseases (2 sources) Primary biliary cirrhosis; 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] Onset: 7 Chronic Other lower respiratory disease [...] Onset: 5 Episodic Other nervous system disorders (20 sources) Disorder of brain; Translations: [Encephalopathy, unspecified] Onset: 5 12-08-2023 Chronic Other nervous system disorders (2 [...] 5 09-27-2022 Chronic Other upper respiratory disease (20 sources) Allergic rhinitis; Translations: [Allergic rhinitis, unspecified] Onset: 5 12-08-2023 Chronic Other upper respiratory disease (2 sources) Allergic rhinitis, unspecified; Translations: [Allergic rhinitis, cause unspecified] 12-08-2023 Chronic Other upper respiratory disease (20 sources) Bleeding from nose; Translations: [Epistaxis] Onset: 3 03-21-2023 Episodic Other upper respiratory disease (20 sources) Anterior epistaxis; Translations: [Epistaxis] 03-17-2025 Episodic Other upper respiratory disease (2 sources) Epistaxis; Translations: [Epistaxis] Onset: 5 Episodic Alexandra-; endo-; and myocarditis; cardiomyopathy (except that caused by tuberculosis or sexually transmitted disease) (20 sources) Cardiomyopathy; Translations: [Cardiomyopathy, unspecified] Onset: 5 12-06-2023 Chronic Pneumonia (except that caused by tuberculosis or sexually transmitted disease) (20 sources) Pneumonia; Translations: [Pneumonia, unspecified organism] Onset: 5 12-08-2023 Episodic Residual codes; unclassified (20 sources) History of colectomy; Translations: [Acquired absence of other specified parts of digestive tract] Onset: 5 09-27-2022 Episodic Residual codes; unclassified (20 sources) Memory impairment; Translations: [Other amnesia] Onset: 5 05-14-2021 Episodic Residual codes; unclassified (10 sources) Other amnesia; Translations: [Memory loss] Episodic Residual codes; unclassified (20 sources) Edema of lower leg ; Translations: [Localized edema] Onset: 5 03-07-2025 Episodic Residual codes; unclassified (7 sources) Other specified personal risk factors, not elsewhere classified; Translations: [Other specified personal history presenting hazards to health] Onset: 5 05-13-2025 Episodic Residual codes; unclassified (5 sources) At risk of hemorrhage; Translations: [Other [...] (20 sources) Sepsis; Translations: [Sepsis, unspecified organism] Onset: 5 12-02-2023 Episodic Spondylosis; intervertebral disc disorders; other [...] unspecified; Translations: [Chronic atrial fibrillation, unspecified] Onset: 5 Unclassified (1 source) Contact with and (suspected) exposure to COVID-19; Translations: [Contact with and (suspected) exposure to COVID-19] Onset: 5 Urinary tract infections (20 sources) Urinary tract infectious disease; Translations: [Urinary tract infection, site not specified] Onset: 5 12-02-2023 Episodic Viral infection (20 sources) Disease [...] Date Documented Da te Episodic/Chronic Allergic reactions (15 sources) Atopic dermatitis; Translations: [Other atopic dermatitis] Onset: 8 Resolved: 7 11-02-2016 Chronic Gastrointestinal hemorrhage (15 sources) Gastrointestinal hemorrhage; Translations: [Gastrointestinal hemorrhage, unspecified] Onset: 6 Resolved: 7 11-02-2016 Episodic Other and unspecified benign neoplasm (20 sources) Dysplasia of colon; Translations: [Polyp of colon] Onset: 7 11-02-2016 Episodic Other circulatory disease (15 sources) Disorder of capillaries; Translations: [Disease of capillaries, unspecified] Onset: 8 Resolved: 7 11-02-2016 Episodic Other connective tissue disease (15 sources) Plantar fascial fibromatosis; Translations: [Plantar fascial fibromatosis] Onset: 9 Resolved: 7 11-02-2016 Episodic Other connective tissue disease (1 source) Pain in right foot; Translations: [Pain in right foot] Onset: 5 Episodic Other gastrointestinal disorders (1 source) Dysphagia, unspecified; Translations: [Dysphagia, unspecified] Onset: 5 Episodic Other inflammatory condition of skin (20 sources) Seborrheic dermatitis; Translations: [Other seborrheic dermatitis] Onset: 8 Resolved: 7 08-30-2008 Episodic Other liver diseases (15 sources) Biliary cirrhosis; Translations: [Biliary cirrhosis, unspecified] Onset: 7 Resolved: 0 08-26-2010 Chronic Other lower respiratory disease (15 sources) Finding of respiration; Translations: [Other forms of dyspnea] Onset: 7 Resolved: 6 06-22-2016 Episodic Other nervous system disorders (15 sources) Abnormal gait; Translations: [Unspecified abnormalities of gait and mobility] Onset: 7 Resolved: 7 11-02-2016 Episodic Other screening for suspected conditions (not mental disorders or infectious disease) (20 sources) Raised prostate specific antigen; Translations: [Elevated prostate specific antigen [PSA]] Onset: 7 Resolved: 7 11-02-2016 Episodic Other skin disorders (15 sources) Finding of region of thorax; Translations: [Localized swelling, mass and lump, trunk] Onset: 7 Resolved: 7 11-02-2016 Episodic Other skin disorders (15 sources) Seborrheic keratosis; Translations: [Other seborrheic keratosis] Onset: 9 Resolved: 7 11-02-2016 Episodic Other upper respiratory infections (20 sources) Sore throat symptom; Translations: [Acute pharyngitis, unspecified] Onset: 5 11-30-2024 Episodic Residual codes; unclassified (15 sources) Flushing; Translations: [Flushing] Onset: 8 Resolved: 7 11-02-2016 Episodic Spondylosis; intervertebral disc disorders; other back problems (20 sources) Chronic low back pain; Translations: [Lumbago with sciatica, unspecified side] Onset: 7 Resolved: 7 12-23-2015 Episodic Results Test Name Value Interpretation Reference Range Facility L3410.9994on 07-18-2025 [facility] Misc. 2 COMMENT Normal . [facility] Comment on above: Order Comment: [id number] 2PBC profile Result Comment: Test Ordered: [id number] Primary Biliary Cholangitis PrAnti-Nuclear Ab by IFA (RDL) Positive [A ] ESECF Reference Range: NegativeHomogeneous Pattern CASTING MACHINE OPERATOR HELPER NOLAB Reference Range: .Nucleolar Pattern CASTING MACHINE OPERATOR HELPER NOLAB Reference Range: .Speckled Pattern 1:40 [H ] ESECF Reference Range: <1:40Centromere Pattern CASTING MACHINE OPERATOR HELPER NOLAB Reference Range: .Spindle Apparatus Pattern CASTING MACHINE OPERATOR HELPER NOLAB Reference Range: .Nuclear Membrane Pattern CASTING MACHINE OPERATOR HELPER NOLAB Reference Range: .Midbody Pattern CASTING MACHINE OPERATOR HELPER NOLAB Reference Range: .Nuclear Dot Pattern CASTING MACHINE OPERATOR HELPER NOLAB Reference Range: .PCNA Pattern CASTING MACHINE OPERATOR HELPER NOLAB Reference Range: .Centriole Pattern CASTING MACHINE OPERATOR HELPER NOLAB Reference Range: .Note: Comment ESECF Reference Range: .JOHN performed by Indirect Fluorescent Antibody (IFA)Anti-Mitochondrial Ab by IFA 1:640 [H ] ESECF Reference Range: <1:20Anti-Mitochondrial M2 Ab (RDL) 187 [H ] Units ESECF Reference Range: <20 Negative: <20 Equivocal: 20 - 25 Positive: >61Hqib-DG-252 Ab (RDL) <20 Units ESECF Reference Range: <66Nisd-DX-811 Ab (RDL) <20 Units ESECF Reference Range: <20Anti-Smooth Muscle Ab by IFA 1:40 [H ] ESECF Reference Range: <1:20Performed at: [facility] - [facility] [address] [id number] Director: Venus Ruiz MD, Phone: [phone] at: [facility] [address] [id number] [place], [place] [id number] Director: Herber Lindquist PhD, Phone: [phone] Performed By: #### L 506.1001, L3410.9994, L501.6710, L3100.5450, L500.4050, L300.3900, L500.4100, L100.0100, L501.4700, L3410.9992 ####[facility] [address] [place], [place], [address] L3410.9992on 07-12-2025 [facility]. COMMENT Normal . [facility] Comment on above: Order Comment: [id number] 9Serum ELF test Result Comment: Test Ordered: [id number] Enhanced Liver Fibrosis (ELF)ELF(TM) Score 11.90 [H ] Reference Range: <9.80ELF(TM) Score Interpretation:Risk cut-offs to assess the likelihood of progressionto cirrhosis and liver-related clinical events within3.9 years following baseline ELF score (IQR: 14.0-22.4months)*: Lower risk < 9.80 Mid risk 9.80 - 11.29 Higher risk >11.29Note: The ELF(TM) Score is a unitless numerical value.*Glen SA, Prakash VW, Geremias T, et al. Selonsertibfor patients with bridging fibrosis or compensatedcirrhosis due to LUCAS: Results from randomized phaseIII STELLAR trials. J Hepatol. 2020 Mar;73(1):26-39.Performed at: [facility] [address] [id number] Director: Talha Stern MD, Phone: [phone] at: [address] [id number] Director: Herber Lindquist PhD, Phone: [phone] Performed By: #### L 506.1001, L3410.9994, L501.6710, L3100.5450, L500.4050, L300.3900, L500.4100, L100.0100, L501.4700, L3410.9992 ####[facility] [address] [place], [address] JOHN w/ Reflex Mult Confirmon 07-08-2025 JOHN,DIRECT Positive Abnormal Negative [facility] Comment on above: Performed By: #### L 506.1001, L3410.9994, L501.6710, L3100.5450, L500.4050, L300.3900, L500.4100, L100.0100, L501.4700, L3410.9992 ####[facility] [address] [place], [address] ANTI-DNA (DS)AB 7 IU/mL Normal 0-9 [facility] Comment on above: Result Comment: Nega tive <5 Equivocal 5 - 9 Positive >9 Performed By: #### L 506.1001, L3410.9994, L501.6710, L3100.5450, L500.4050, L300.3900, L500.4100, L100.0100, L501.4700, L3410.9992 ####[facility] [address] [place], [address] ANTI-SS-A > 8.0 High 0.0-0.9 [facility] Comment on above: Performed By: #### L 506.1001, L3410.9994, L501.6710, L3100.5450, L500.4050, L300.3900, L500.4100, L100.0100, L501.4700, L3410.9992 ####[facility] [address] [place], [address] ANTI-SS-B < 0.2 Normal 0.0-0.9 [facility] Comment on above: Performed By: #### L 506.1001, L3410.9994, L501.6710, L3100.5450, L500.4050, L300.3900, L500.4100, L100.0100, L501.4700, L3410.9992 ####[facility] [address] [facility] [place], [address] Absolute lymphocyte countOrd ered By: Jeffrey Berkowitz on 07-05-2025 Lymphocytes Auto (Unsp spec) [#/Vol] 1.60 10*3/uL 0.83-4.51 [facility] Anion gap in Serum or Plasma Ordered By: Jeffrey Berkowitz on 07-05-2025 Anion gap [Moles/Vol] 6 mmol/L 5-15 [facility] Automated lymphocyte count a s percentage of total leukocytesOrdered By: Jeffrey Berkowitz on 07-05-2025 Lymphocytes/100 WBC Auto (Unsp spec) 25.0 % 19-41 [facility] BUN/creatinine ratioOrdered By: Jeffrey Berkowitz on 07-05-2025 Urea nitrogen/Creatinine [Mass ratio] 24.7 mg/mg High 07-08 [facility] Basophil percentageOrdered B y: Jeffreyria Berkowitz on 07-05-2025 Basophils/100 WBC (Bld) 0.3 % 0-1 [facility] Bilirubin directOrdered By: Jeffrey Berkowitz on 07-05-2025 Bilirubin.direct [Mass/Vol] 0.30 mg/dL 0.00-0.30 [facility] Bilirubin, Directon 07-05-20 25 Bilirubin.direct [Mass/Vol] 0.30 mg/dL Normal 0.00-0.30 [facility] Comment on above: Performed By: #### L 506.1001, L3410.9994, L501.6710, L3100.5450, L500.4050, L300.3900, L500.4100, L100.0100, L501.4700, L3410.9992 ####[facility] [address] [place], [place], [phone]) Bilirubin, totalOrdered By: Jeffrey Berkowitz on 07-05-2025 Bilirubin [Mass/Vol] 0.67 mg/dL 0.00-1.30 [facility] CBC W/Diff, Automatedon 06-19 Absolute Lymph 1.60 X10 3/uL Normal 0.83-4.51 [facility] Comment on above: Performed By: #### L 506.1001, L3410.9994, L501.6710, L3100.5450, L500.4050, L300.3900, L500.4100, L100.0100, L501.4700, L3410.9992 ####[facility] [address] [place], [address] Absolute Neut 3.9 X10 3/uL Normal 2.0-7.7 [facility] Comment on above: Performed By: #### L 506.1001, L3410.9994, L501.6710, L3100.5450, L500.4050, L300.3900, L500.4100, L100.0100, L501.4700, L3410.9992 ####[facility] [address] [place], [address] Basophils/100 WBC (Bld) 0.3 % Normal 0-1 [facility] Comment on above: Performed By: #### L 506.1001, L3410.9994, L501.6710, L3100.5450, L500.4050, L300.3900, L500.4100, L100.0100, L501.4700, L3410.9992 ####[facility] [address] [facility] [address] [place], [place], [phone]) Eosinophils/100 WBC (Bld) 1.7 % Normal 0-5 [facility] Comment on above: Performed By: #### L 506.1001, L3410.9994, L501.6710, L3100.5450, L500.4050, L300.3900, L500.4100, L100.0100, L501.4700, L3410.9992 ####[facility] [address] [facility] [place], [address] Erythrocyte distribution width (RBC) [Ratio] 16.5 % High 11.6-14.6 [facility] Comment on above: Performed By: #### L 506.1001, L3410.9994, L501.6710, L3100.5450, L500.4050, L300.3900, L500.4100, L100.0100, L501.4700, L3410.9992 ####[facility] [address] [facility] [place], [address](464) Hematocrit (Bld) [Volume fraction] 36.6 % Low 40-54 [facility] Comment on above: Performed By: #### L 506.1001, L3410.9994, L501.6710, L3100.5450, L500.4050, L300.3900, L500.4100, L100.0100, L501.4700, L3410.9992 ####[facility] [address] [place], [address] Hemoglobin (Bld) [Mass/Vol] 11.6 g/dL Low 13.0-16.5 [facility] Comment on above: Performed By: #### L 506.1001, L3410.9994, L501.6710, L3100.5450, L500.4050, L300.3900, L500.4100, L100.0100, L501.4700, L3410.9992 ####[facility] [address] [place], [address] IG% 0.300 Normal 0.0-0.9 [facility] Comment on above: Result Comment: IG% - Immature Granulocytes (promyelocytes, myelocytes andmetamyelocytes) > 1% indicates that a LEFT SHIFT is Present. Performed By: #### L 506.1001, L3410.9994, L501.6710, L3100.5450, L500.4050, L300.3900, L500.4100, L100.0100, L501.4700, L3410.9992 ####[facility] [address] [place], [address] Lymphocytes/100 WBC (Bld) 25.0 % Normal 19-41 [facility] Comment on above: Performed By: #### L 506.1001, L3410.9994, L501.6710, L3100.5450, L500.4050, L300.3900, L500.4100, L100.0100, L501.4700, L3410.9992 ####[facility] [address] [place], [address] MCH (RBC) [Entitic mass] 30.3 pg Normal 27.0-32.0 [facility] Comment on above: Performed By: #### L 506.1001, L3410.9994, L501.6710, L3100.5450, L500.4050, L300.3900, L500.4100, L100.0100, L501.4700, L3410.9992 ####[facility] [address] [place], [address] MCHC (RBC) [Mass/Vol] 31.7 g/dL Low 32-36 [facility] Comment on above: Performed By: #### L 506.1001, L3410.9994, L501.6710, L3100.5450, L500.4050, L300.3900, L500.4100, L100.0100, L501.4700, L3410.9992 ####[facility] [address] [place], [place], [phone]) MCV (RBC) [Entitic vol] 95.6 fL High 80-94 [facility] Comment on above: Performed By: #### L 506.1001, L3410.9994, L501.6710, L3100.5450, L500.4050, L300.3900, L500.4100, L100.0100, L501.4700, L3410.9992 ####[facility] [address] [place], [place], [phone] Monocytes/100 WBC (Bld) 11.6 % High 0-10 [facility] Comment on above: Performed By: #### L 506.1001, L3410.9994, L501.6710, L3100.5450, L500.4050, L300.3900, L500.4100, L100.0100, L501.4700, L3410.9992 ####[facility] [address] [place], [address] Neutrophils/100 WBC (Bld) 61.1 % Normal 47-70 [facility] Comment on above: Performed By: #### L 506.1001, L3410.9994, L501.6710, L3100.5450, L500.4050, L300.3900, L500.4100, L100.0100, L501.4700, L3410.9992 ####[facility] [address] [place], [address] Nucleated RBC (Bld) [#/Vol] 0 10*3/uL Normal 0-5 [facility] Comment on above: Performed By: #### L 506.1001, L3410.9994, L501.6710, L3100.5450, L500.4050, L300.3900, L500.4100, L100.0100, L501.4700, L3410.9992 ####[facility] [address] [place], [place], [phone](907) Platelet mean volume (Bld) [Entitic vol] 11.1 fL Normal 6.2-12.0 [facility] Comment on above: Performed By: #### L 506.1001, L3410.9994, L501.6710, L3100.5450, L500.4050, L300.3900, L500.4100, L100.0100, L501.4700, L3410.9992 ####[facility] [address] [place], [place], [phone](576) Platelets (Bld) [#/Vol] 116 10*3/uL Low 150-450 [facility] Comment on above: Performed By: #### L 506.1001, L3410.9994, L501.6710, L3100.5450, L500.4050, L300.3900, L500.4100, L100.0100, L501.4700, L3410.9992 ####[facility] [address] [place], [address](957) RBC (Bld) [#/Vol] 3.83 10*6/uL Low 4.6-6.2 [facility] Comment on above: Performed By: #### L 506.1001, L3410.9994, L501.6710, L3100.5450, L500.4050, L300.3900, L500.4100, L100.0100, L501.4700, L3410.9992 ####[facility] [address] [place], [place], [phone] RDW SD 57.8 fl High 35.1-43.9 [facility] Comment on above: Performed By: #### L 506.1001, L3410.9994, L501.6710, L3100.5450, L500.4050, L300.3900, L500.4100, L100.0100, L501.4700, L3410.9992 ####[facility] [address] [facility] [address] [place], [place], [phone] WBC (Bld) [#/Vol] 6.4 10*3/uL Normal 4.4-11.0 [facility] Comment on above: Performed By: #### L 506.1001, L3410.9994, L501.6710, L3100.5450, L500.4050, L300.3900, L500.4100, L100.0100, L501.4700, L3410.9992 ####[facility] [address] [place], [place], [phone] CRPon 07-05-2025 C-REACTIVE PROT 3.85 mg/L High 0.0-3.0 [facility] Comment on above: Performed By: #### L 506.1001, L3410.9994, L501.6710, L3100.5450, L500.4050, L300.3900, L500.4100, L100.0100, L501.4700, L3410.9992 ####[facility] [address] [place], [place], [phone] Calculated very low density lipoprotein (VLDL) cholesterol measurementOrdered By: Jeffrey Berkowitz on 07-05-2025 Calculated very low density lipoprotein (VLDL) cholesterol measurement 13 mg/dL 5-40 [facility] Carbon dioxide, total [Moles /volume] in Central venous bloodOrdered By: Jeffrey Berkowitz on 07-05-2025 CO2 [Moles/Vol] 29.0 mmol/L 21.0-32.0 [facility] Cardiology Visit Reporton Cardiology Visit Report Normal [facility] Chloride assayOrdered By: Jono Berkowitz on 07-05-2025 Chloride [Moles/Vol] 103 mmol/L 98-108 [facility] Comprehensive Metabolic Prof ilon 07-05-2025 Albumin [Mass/Vol] 3.5 g/dL Normal 3.4-4.8 [facility] Comment on above: Performed By: #### L 506.1001, L3410.9994, L501.6710, L3100.5450, L500.4050, L300.3900, L500.4100, L100.0100, L501.4700, L3410.9992 ####[facility] [address] [place], [address] Albumin/Globulin [Mass ratio] 0.9 {ratio} Normal 0.9-2.4 [facility] Comment on above: Performed By: #### L 506.1001, L3410.9994, L501.6710, L3100.5450, L500.4050, L300.3900, L500.4100, L100.0100, L501.4700, L3410.9992 ####[facility] [address] [place], [address] ALK PHOS 74 U/L Normal 40-129 [facility] Comment on above: Performed By: #### L 506.1001, L3410.9994, L501.6710, L3100.5450, L500.4050, L300.3900, L500.4100, L100.0100, L501.4700, L3410.9992 ####[facility] [address] [facility] [address] [place], [place], [phone] ALT [Catalytic activity/Vol] 12 U/L Normal <=46 [facility] Comment on above: Performed By: #### L 506.1001, L3410.9994, L501.6710, L3100.5450, L500.4050, L300.3900, L500.4100, L100.0100, L501.4700, L3410.9992 ####[facility] [address] [facility] [place], [place], [phone] AST [Catalytic activity/Vol] 25 U/L Normal <=37 [facility] Comment on above: Performed By: #### L 506.1001, L3410.9994, L501.6710, L3100.5450, L500.4050, L300.3900, L500.4100, L100.0100, L501.4700, L3410.9992 ####[facility] [address] [facility] [place], [place], [phone] Bilirubin [Mass/Vol] 0.67 mg/dL Normal 0.00-1.30 [facility] Comment on above: Performed By: #### L 506.1001, L3410.9994, L501.6710, L3100.5450, L500.4050, L300.3900, L500.4100, L100.0100, L501.4700, L3410.9992 ####[facility] [address] [facility] [address] [place], [place], [phone] BUN/CRE 24.7 RATIO High 10-20 [facility] Comment on above: Performed By: #### L 506.1001, L3410.9994, L501.6710, L3100.5450, L500.4050, L300.3900, L500.4100, L100.0100, L501.4700, L3410.9992 ####[facility] [address] [place], [address] Calcium [Mass/Vol] 9.4 mg/dL Normal 7.6-11.0 [facility] Comment on above: Performed By: #### L 506.1001, L3410.9994, L501.6710, L3100.5450, L500.4050, L300.3900, L500.4100, L100.0100, L501.4700, L3410.9992 ####[facility] [address] [place], [place], [phone] Chloride [Moles/Vol] 103 mmol/L Normal 98-108 [facility] Comment on above: Performed By: #### L 506.1001, L3410.9994, L501.6710, L3100.5450, L500.4050, L300.3900, L500.4100, L100.0100, L501.4700, L3410.9992 ####[facility] [address] [place], [place], [phone] CO2 [Moles/Vol] 29.0 mmol/L Normal 21.0-32.0 [facility] Comment on above: Performed By: #### L 506.1001, L3410.9994, L501.6710, L3100.5450, L500.4050, L300.3900, L500.4100, L100.0100, L501.4700, L3410.9992 ####[facility] [address] [place], [place], [phone] Creatinine [Mass/Vol] 0.83 mg/dL Normal 0.70-1.20 [facility] Comment on above: Performed By: #### L 506.1001, L3410.9994, L501.6710, L3100.5450, L500.4050, L300.3900, L500.4100, L100.0100, L501.4700, L3410.9992 ####[facility] [address] [place], [place], [phone](343) GAP 6 Normal 5-15 [facility] Comment on above: Performed By: #### L 506.1001, L3410.9994, L501.6710, L3100.5450, L500.4050, L300.3900, L500.4100, L100.0100, L501.4700, L3410.9992 ####[facility] [address] [place], [address] GFR/1.73 sq M.predicted among non-blacks MDRD (S/P/Bld) [Vol rate/Area] 84 mL/min/{1.73_m2} Normal >60 [facility] Comment on above: Result Comment: mL/m in/1.73m2 CKD-EPI Creatinine Equation (2020) Performed By: #### L 506.1001, L3410.9994, L501.6710, L3100.5450, L500.4050, L300.3900, L500.4100, L100.0100, L501.4700, L3410.9992 ####[facility] [address] [place], [place], [phone](289) Globulin (S) [Mass/Vol] 3.9 g/dL Normal 2.2-4.2 [facility] Comment on above: Performed By: #### L 506.1001, L3410.9994, L501.6710, L3100.5450, L500.4050, L300.3900, L500.4100, L100.0100, L501.4700, L3410.9992 ####[facility] [address] [place], [address] Glucose [Mass/Vol] 95 mg/dL Normal 70-99 [facility] Comment on above: Performed By: #### L 506.1001, L3410.9994, L501.6710, L3100.5450, L500.4050, L300.3900, L500.4100, L100.0100, L501.4700, L3410.9992 ####[facility] [address] [place], [address] Potassium [Moles/Vol] 4.6 mmol/L Normal 3.3-5.1 [facility] Comment on above: Performed By: #### L 506.1001, L3410.9994, L501.6710, L3100.5450, L500.4050, L300.3900, L500.4100, L100.0100, L501.4700, L3410.9992 ####[facility] [address] [place], [address] Sodium [Moles/Vol] 138 mmol/L Normal 133-145 [facility] Comment on above: Performed By: #### L 506.1001, L3410.9994, L501.6710, L3100.5450, L500.4050, L300.3900, L500.4100, L100.0100, L501.4700, L3410.9992 ####[facility] [address] [place], [address] T PROT 7.5 g/dL Normal 5.9-8.4 [facility] Comment on above: Performed By: #### L 506.1001, L3410.9994, L501.6710, L3100.5450, L500.4050, L300.3900, L500.4100, L100.0100, L501.4700, L3410.9992 ####[facility] [address] [place], [address] Urea nitrogen [Mass/Vol] 21 mg/dL High 4-19 [facility] Comment on above: Performed By: #### L 506.1001, L3410.9994, L501.6710, L3100.5450, L500.4050, L300.3900, L500.4100, L100.0100, L501.4700, L3410.9992 ####[facility] [address] [place], [address] Eosinophil percentageOrdered By: Jeffrey Berkowitz on 07-05-2025 Eosinophils/100 WBC (Bld) 1.7 % 0-5 [facility] Erythrocyte distribution wid th ratioOrdered By: Jeffrey Berkowitz on 07-05-2025 Erythrocyte distribution width (RBC) [Ratio] 16.5 % High 11.6-14.6 [facility] Erythrocyte distribution wid th standard deviationOrdered By: Jeffrey Berkowitz on 07-05-2025 Erythrocyte distribution width (RBC) [Ratio] 57.8 fl High 35.1-43.9 [facility] Glomerular filtration rate ( GFR) estimation/1.73 sq m using serum, plasma, or whole bOrdered By: Jeffrey Berkowitz on 07-05-2025 GFR/1.73 sq M.predicted among non-blacks MDRD (S/P/Bld) [Vol rate/Area] 84 mL/min/{1.73_m2} >60 [facility] Hematocrit Auto (Bld) [Volum e fraction]Ordered By: Jeffrey Berkowitz on 07-05-2025 Hematocrit (Bld) [Volume fraction] 36.6 % Low 40-54 [facility] Hemoglobin measurementOrdere d By: Jeffrey Berkowitz on 07-05-2025 Hemoglobin (Bld) [Mass/Vol] 11.6 g/dL Low 13.0-16.5 [facility] Immature granulocytes/100 WB C Auto (Bld)Ordered By: Jeffrey Berkowitz on 07-05-2025 Immature granulocytes/100 WBC (Bld) 0.300 % 0.0-0.9 [facility] LDL calc ser/plasOrdered By: Jeffrey Berkowitz on 07-05-2025 Cholesterol in LDL [Mass/Vol] 42 mg/dL [facility] Lipid Profileon 07-05-2025 CHOL:HDL 2.10 Normal [facility] Comment on above: Performed By: #### L 506.1001, L3410.9994, L501.6710, L3100.5450, L500.4050, L300.3900, L500.4100, L100.0100, L501.4700, L3410.9992 ####[facility] [address] [place], [address] Cholesterol [Mass/Vol] 107 mg/dL Normal <=200 [facility] Comment on above: Result Comment: Chol esterol level, Desirable <200 mg/dLBorderline high cholesterol 200-239 mg/dLHigh cholesterol >=240 mg/dLRecommendations of the NCEP Adult Treatment Panel for thefollowing risk-cutoff thresholds for the [place] Americanpulation. Performed By: #### L 506.1001, L3410.9994, L501.6710, L3100.5450, L500.4050, L300.3900, L500.4100, L100.0100, L501.4700, L3410.9992 ####[facility] [address] [place], [place], [phone]) Cholesterol in HDL [Mass/Vol] 51 mg/dL Normal [facility] Comment on above: Result Comment: Dede onal Cholesterol Education Program (NCEP) guidelines:<40 mg/dL: Low HDL-cholesterol (major risk factor for CHD)>= 60 mg/dL: High HDL-cholesterol (negative risk factor forCHD)HDL-cholesterol is affected by a number of factors, e.g.smoking, exercise, hormones, sex and age. Performed By: #### L 506.1001, L3410.9994, L501.6710, L3100.5450, L500.4050, L300.3900, L500.4100, L100.0100, L501.4700, L3410.9992 ####[facility] [address] [place], [address] Cholesterol in LDL [Mass/Vol] 42 mg/dL Normal [facility] Comment on above: Result Comment: Bord aliegt=816-010 mg/dL Higher Bwvm=500 mg/dL or greaterSampson Equation 2020 for LDL-C Performed By: #### L 506.1001, L3410.9994, L501.6710, L3100.5450, L500.4050, L300.3900, L500.4100, L100.0100, L501.4700, L3410.9992 ####[facility] [address] [place], [address] Cholesterol in VLDL [Mass/Vol] 13 mg/dL Normal 5-40 [facility] Comment on above: Performed By: #### L 506.1001, L3410.9994, L501.6710, L3100.5450, L500.4050, L300.3900, L500.4100, L100.0100, L501.4700, L3410.9992 ####[facility] [address] [place], [address] Triglyceride [Mass/Vol] 67 mg/dL Normal [facility] Comment on above: Result Comment: The drugs N-Acetylcysteine and Metamizole may falselydepress this assay.Normal range: <150 mg/dLBorderline High: 150-199 mg/dLHigh: 200-499 mg/dLVery High: >500 mg/dL Performed By: #### L 506.1001, L3410.9994, L501.6710, L3100.5450, L500.4050, L300.3900, L500.4100, L100.0100, L501.4700, L3410.9992 ####[facility] [address] [place], [address] MCV (mean corpuscular volume ) determinationOrdered By: Jeffrey Berkowitz on 07-05-2025 MCV (RBC) [Entitic vol] 95.6 fL High 80-94 [facility] Mean corpuscular hemoglobin (MCH) determinationOrdered By: Jeffrey Berkowitz on 07-05-2025 MCH (RBC) [Entitic mass] 30.3 pg 27.0-32.0 [facility] Monocyte percentageOrdered B y: Jeffrey Berkowitz on 07-05-2025 Monocytes/100 WBC (Bld) 11.6 % High 0-10 [facility] Neutrophil percentageOrdered By: Jeffrey Berkowitz on 07-05-2025 Neutrophils/100 WBC (Bld) 61.1 % 47-70 [facility] No Panel InformationOrdered By: Jeffrey Berkowitz on 07-05-2025 25 U/L <38 [facility] Platelet countOrdered By: Jono Berkowitz on 07-05-2025 Platelets (Bld) [#/Vol] 116 10*3/uL Low 150-450 [facility] Potassium measurement (mass/ volume)Ordered By: Jeffrey Berkowitz on 07-05-2025 Potassium (Unsp spec) [Mass/Vol] 4.6 mmol/L 3.3-5.1 [facility] Prothrombin Time w/INRon INR Coag (PPP) [Relative time] 1.3 {INR} Normal [facility] Comment on above: Performed By: #### L 506.1001, L3410.9994, L501.6710, L3100.5450, L500.4050, L300.3900, L500.4100, L100.0100, L501.4700, L3410.9992 ####[facility] [address] [place], [address] PT Coag (PPP) [Time] 16.1 s High 11.7-14.9 [facility] Comment on above: Performed By: #### L 506.1001, L3410.9994, L501.6710, L3100.5450, L500.4050, L300.3900, L500.4100, L100.0100, L501.4700, L3410.9992 ####[facility] [address] [place], [place], [phone] Prothrombin timeOrdered By: Jeffrey Berkowitz on 07-05-2025 PT Coag (PPP) [Time] 16.1 s High 11.7-14.9 [facility] RBC Auto (Bld) [#/Vol]Ordere d By: Jeffrey Berkowitz on 07-05-2025 RBC (Bld) [#/Vol] 3.83 10*6/uL Low 4.6-6.2 [facility] Serum DNA double strand anti body assay (units/volume)Ordered By: Jeffrey Berkowitz on 07-05-2025 DNA double strand Ab Qn (S) 7 [IU]/mL 0-9 [facility] Serum Scl-70 antibody assay (units/volume)Ordered By: Jeffrey Berkowitz on 07-05-2025 SCL-70 extractable nuclear Ab Qn (S) 0.2 AI 0.0-0.9 [facility] Serum creatinine measurement (mass/volume)Ordered By: Jeffrey Berkowitz on 07-05-2025 Creatinine [Mass/Vol] 0.83 mg/dL 0.70-1.20 [facility] Serum globulin measurementOr dered By: Jeffrey Berkowitz on 07-05-2025 Globulin (S) [Mass/Vol] 3.9 g/dL 2.2-4.2 [facility] Serum glucose measurement (m ass/volume)Ordered By: Jeffrey Berkowitz on 07-05-2025 Glucose [Mass/Vol] 95 mg/dL 70-99 [facility] Serum or plasma C reactive p rotein measurement (mass/volume)Ordered By: Jeffrey Berkowitz on 07-05-2025 CRP [Mass/Vol] 3.85 mg/L High 0.0-3.0 [facility] Serum or plasma alanine castellano otransferase (ALT) measurementOrdered By: Jeffrey Berkowitz on 07-05-2025 ALT [Catalytic activity/Vol] 12 U/L <47 [facility] Serum or plasma albumin tay urement (mass/volume)Ordered By: Jeffrey Berkowitz on 07-05-2025 Albumin [Mass/Vol] 3.5 g/dL 3.4-4.8 [facility] Serum or plasma albumin/glob ulin mass ratioOrdered By: Jeffrey Berkowitz on 07-05-2025 Albumin/Globulin [Mass ratio] 0.9 {ratio} 0.9-2.4 [facility] Serum or plasma alkaline lyndsey sphatase measurementOrdered By: Jeffrey Berkowitz on 07-05-2025 ALP [Catalytic activity/Vol] 74 U/L 40-129 [facility] Serum or plasma calcium tay urement (mass/volume)Ordered By: Jeffrey Berkowitz on 07-05-2025 Calcium [Mass/Vol] 9.4 mg/dL 7.6-11.0 [facility] Serum or plasma cholesterol in HDL measurement (mass/volume)Ordered By: Jeffrey Berkowitz on 07-05-2025 Cholesterol in HDL [Mass/Vol] 51 mg/dL >40 [facility] Serum or plasma cholesterol measurement (mass/volume)Ordered By: Jeffrey Berkowitz on 07-05-2025 Cholesterol [Mass/Vol] 107 mg/dL <201 [facility] Serum or plasma urea nitroge n measurement (mass/volume)Ordered By: Jeffrey Berkowitz on 07-05-2025 Urea nitrogen [Mass/Vol] 21 mg/dL High 4-19 [facility] Sodium levelOrdered By: Tiffani Berkowitz on 07-05-2025 Sodium [Moles/Vol] 138 mmol/L 133-145 [facility] Total proteinOrdered By: Becky Berkowitz on 07-05-2025 Protein [Mass/Vol] 7.5 g/dL 5.9-8.4 [facility] Vitamin D,25 Hydroxyon 07-05 Vitamin D 25-OH 44.7 ng/mL Normal 30-100 [facility] Comment on above: Result Comment: Rain min D StatusDeficiency: <20 ng/mL (50nmol/L)Insufficiency: 20-30 ng/mL (50-75 nmol/L)Sufficiency: 30-100 ng/mL (75-250 nmol/L)Toxicity: >100 ng/mL (>250 nmol/L) Performed By: #### L 506.1001, L3410.9994, L501.6710, L3100.5450, L500.4050, L300.3900, L500.4100, L100.0100, L501.4700, L3410.9992 ####[facility] [address] [place], [address] White blood cell (WBC) count Ordered By: Jeffrey Berkowitz on 07-05-2025 WBC (Bld) [#/Vol] 6.4 10*3/uL 4.4-11.0 [facility] Gastroenterology Visit Repor ton 07-02-2025 Gastroenterology Visit Report Normal [facility] MR/BMS.BVSon 06-24-2025 MR/BMS.BVS Normal [facility] Pulmonary Visit Reporton Pulmonary Visit Report Normal [facility] Internal Medicine Office Vis iton 06-07-2025 Internal Medicine Office Visit Normal [facility] Electrocardiogram reportOrde red By: John Cool on 06-05-2025 EKG study [facility] Work Phone: 12 Lead EKGon 06-04-2025 12 Lead EKG Normal [facility] OCT OPTIC NERVE CIRRUS OU (B OTH EYES)on 05-27-2025 [facility] Radiology Study observation (narrative) [facility] JESSEE RUST ([id number]) 1935 M Date Time Provider Department 05/22/25 CORINA NGUYEN AGCARDHWLiana During your visit today, we recorded the following information about you: Joanne Lion LPN 05/22/2025 11:51 AM Signed Jessee Rust called regarding discussion had on 05/14/25 about a Watchmen , patient is agreeable to the placement. Thanks, Joanne Lion LPN May 22, 2025 11:51 AM Corina Nguyen MD 05/23/2025 4:36 PM Signed [facility] General Electrophysiology (EP) If we receive shared decision making documentation from Dr. Schmidt outlining the rationale for seeking alternative to oral anticoagulation therapy, including the CMS/Medicare required use of a shared decision making tool, then we can proceed. [facility] had a template for this in the past that they would use that contains the verbiage. I will send copy of this note to Dr. Schmidt. Corina Nguyen MD May 23, 2025 4:36 PM Marietta Bach RN 05/30/2025 1:42 PM Signed Shared decision making documentation from Dr Schmidt scanned into EPIC for your review. CRISTY James Robert A, MD 06/21/2025 8:48 PM Signed [facility] General Electrophysiology (EP) Order for CTA scan submitted. He needs to be told not to get the serum creatinine blood test until within a month of the CT scan. Procedure request for Watchman submitted. Corina Nguyen MD June 21, 2025 8:46 PM Corina Nguyen MD 06/21/2025 8:48 PM Signed Addended by: CORINA NGUYEN on: 06/21/2025 08:48 PM Modules accepted: Christofer Ballard 06/26/2025 11:19 AM Signed Spoke with pt. Informed that CT order is ready to be scheduled. Informed pt about getting blood work within a month of CT. Patient verbalized understanding. Transferred to Central Scheduling to set up CT. Christofer Osborne Allergies As of Date: 05/22/2025 Noted Allergy Reaction BETA-BLOCKERS (BETA-ADRENERGIC BL*01/28/2020 12 - Shortness of Breath 14 - Other: See Comments AMLODIPINE 12/16/2015 14 - Other: See Comments Comments: fatigue,lightheaded LIPITOR (ATORVASTATIN CALCIUM) 02/08/2011 5 - Intolerance Comments: pvc, enzyme elevation long haired dogs and cats [Other] 11/21/2006 14 - Other: See Comments METOPROLOL 11/07/2023 14 - Other: See Comments Comments: Shortness of breath MOLD 11/21/2006 14 - Other: See Comments PENICILLINS 07/01/1970 4 - Hives Comments: Had hives in the 70's Date Reviewed: 05/14/2025 Reviewed by: Corina Nguyen MD - Fully Assessed Primary Visit Diagnosis:Paroxysmal atrial fibrillation (HCC) [I48.0] Other Visit Diagnoses:At risk for stroke [Z91.89] At risk for bleeding associated with anticoagulants [Z91.89] equipment [employer] current use of anticoagulant therapy [Z79.01] Order(s):CTA CHEST (GATED) W IVCON [8618227] Order #: [id number] FUTURE CREATININE BLD [SQCRET] Order #: [id number] FUTURE SURGICAL REQUEST - ELECTIVE (04/2020) [5058715] Order #: [id number]: 1 Prescriptions as of 06/26/2025 - brinzolamide-brimonidin e (SIMBRINZA) 1%-0.2 % Ophth Susp Use 1 drop in both eyes two times a day. - ROCKLATAN 0.02-0.005 % ophthalmic solution Use 1 drop in both eyes daily at bedtime. - vitamin D3-vitamin K2 1,250-200 mcg cap Take 1 tablet by mouth once daily. - atorvastatin (LIPITOR) 20 mg tablet Take 20 mg by mouth once daily. - Ursodiol 500 mg tablet Take 500 mg by mouth two times a day. - potassium chloride ER (KLOR-CON M10) 10 mEq tablet Take 10 mEq by mouth once daily. - ferrous sulfate 325 mg (65 mg iron) tablet Take 1 tablet by mouth every 48 hours. - famotidine (PEPCID) 20 mg tablet Take 1 tablet by mouth once daily. - budesonide-formoterol (SYMBICORT) 160-4.5 mcg/actuation inhaler inhale 2 puffs by mouth once daily - clobetasol (TEMOVATE) 0.05 % cream apply 1 APPLICATION topically once daily if needed for rash - propylene glycol/peg 400 (SYSTANE FREE, PF, OPHTHALMIC) Use 1 Drop in eyes as needed. - nitroglycerin sublingual (NITROQUICK) 0.4 mg SL tablet Dissolve 1 tablet under the tongue every 5 minutes as needed for Chest Pain (Max of 3 tabs.). - albuterol HFA (PROAIR HFA) 90 mcg/actuation inhaler Inhale 2 Puffs as instructed every 4 hours as needed for Wheezing/Shortness of Breath. - pediatric multivitamin plus minerals with iron [...] daily. - FINASTERIDE 5 MG TAB Take 5 mg by mouth once daily. Problem List (more content not included)... Normal [facility] 12 Lead EKGon 05-20-2025 12 Lead EKG Normal [facility] Absolute lymphocyte countOrd ered By: Roberto Tanner on 05-20-2025 Lymphocytes Auto (Unsp spec) [#/Vol] 2.30 10*3/uL 0.83-4.51 [facility] Activated partial thrombopla stin time (aPTT) in platelet poor plasma by coagulation aOrdered By: Roberto Tanner on 05-20-2025 aPTT Coag (PPP) [Time] 34.0 s 24.1-36.2 [facility] Anion gap in Serum or Plasma Ordered By: Roberto Tanner on 05-20-2025 Anion gap [Moles/Vol] 7 mmol/L 5- [facility] Automated lymphocyte count a s percentage of total leukocytesOrdered By: Roberto Tanner on 05-20-2025 Lymphocytes/100 WBC Auto (Unsp spec) 31.9 % - [facility] BUN/creatinine ratioOrdered By: Roberto Tanner on 05-20-2025 Urea nitrogen/Creatinine [Mass ratio] 19.3 mg/mg 10- [facility] Basic Metabolic Profile (BMP )on 05-20-2025 BUN/CRE 19.3 RATIO Normal - [facility] Comment on above: Performed By: #### L 300.4310, L100.0100, L501.4021, L500.2500, L300.3900 ####[facility] [address] [place], [address] Calcium [Mass/Vol] 8.7 mg/dL Normal 7.6-11.0 [facility] Comment on above: Performed By: #### L 300.4310, L100.0100, L501.4021, L500.2500, L300.3900 ####[facility] [address] [place], [address] Chloride [Moles/Vol] 103 mmol/L Normal 98-108 [facility] Comment on above: Performed By: #### L 300.4310, L100.0100, L501.4021, L500.2500, L300.3900 ####[facility] [address] [place], [address] CO2 [Moles/Vol] 25.3 mmol/L Normal 21.0-32.0 [facility] Comment on above: Performed By: #### L 300.4310, L100.0100, L501.4021, L500.2500, L300.3900 ####[facility] [address] [place], [address] Creatinine [Mass/Vol] 0.93 mg/dL Normal 0.70-1.20 [facility] Comment on above: Performed By: #### L 300.4310, L100.0100, L501.4021, L500.2500, L300.3900 ####[facility] [address] [place], [address] ECRCL 66.91 ml/min Normal 50-250 [facility] Comment on above: Performed By: #### L 300.4310, L100.0100, L501.4021, L500.2500, L300.3900 ####[facility] [address] [place], [address] GAP 7 Normal 5-15 [facility] Comment on above: Performed By: #### L 300.4310, L100.0100, L501.4021, L500.2500, L300.3900 ####[facility] [address] [place], [address] GFR/1.73 sq M.predicted among non-blacks MDRD (S/P/Bld) [Vol rate/Area] 79 mL/min/{1.73_m2} Normal >60 [facility] Comment on above: Result Comment: mL/m in/1.73m2 CKD-EPI Creatinine Equation (2020) Performed By: #### L 300.4310, L100.0100, L501.4021, L500.2500, L300.3900 ####[facility] [address] [place], [address] Glucose [Mass/Vol] 93 mg/dL Normal 70-99 [facility] Comment on above: Performed By: #### L 300.4310, L100.0100, L501.4021, L500.2500, L300.3900 ####[facility] [address] [place], [address] Potassium [Moles/Vol] 4.2 mmol/L Normal 3.3-5.1 [facility] Comment on above: Performed By: #### L 300.4310, L100.0100, L501.4021, L500.2500, L300.3900 ####[facility] [address] [place], [address] Sodium [Moles/Vol] 136 mmol/L Normal 133-145 [facility] Comment on above: Performed By: #### L 300.4310, L100.0100, L501.4021, L500.2500, L300.3900 ####[facility] [address] [place], [address] Urea nitrogen [Mass/Vol] 18 mg/dL Normal 4-19 [facility] Comment on above: Performed By: #### L 300.4310, L100.0100, L501.4021, L500.2500, L300.3900 ####[facility] [address] [place], [address] Basophil percentageOrdered B y: Roberto Rojast on 05-20-2025 Basophils/100 WBC (Bld) 0.4 % 0-1 [facility] Bilirubin Test strip Ql (U)O rdered By: Roberto Rojast on 05-20-2025 Bilirubin Ql (U) Negative Negative [facility] CBC W/Diff, Automatedon Absolute Lymph 2.30 X10 3/uL Normal 0.83-4.51 [facility] Comment on above: Performed By: #### L 300.4310, L100.0100, L501.4021, L500.2500, L300.3900 ####[facility] [address] [place], [address] Absolute Neut 4.0 X10 3/uL Normal 2.0-7.7 [facility] Comment on above: Performed By: #### L 300.4310, L100.0100, L501.4021, L500.2500, L300.3900 ####[facility] [address] [place], [address] Basophils/100 WBC (Bld) 0.4 % Normal 0-1 [facility] Comment on above: Performed By: #### L 300.4310, L100.0100, L501.4021, L500.2500, L300.3900 ####[facility] [address] [place], [address] Eosinophils/100 WBC (Bld) 1.4 % Normal 0-5 [facility] Comment on above: Performed By: #### L 300.4310, L100.0100, L501.4021, L500.2500, L300.3900 ####[facility] [address] [place], [address] Erythrocyte distribution width (RBC) [Ratio] 15.7 % High 11.6-14.6 [facility] Comment on above: Performed By: #### L 300.4310, L100.0100, L501.4021, L500.2500, L300.3900 ####[facility] [address] [place], [address] Hematocrit (Bld) [Volume fraction] 34.8 % Low 40-54 [facility] Comment on above: Performed By: #### L 300.4310, L100.0100, L501.4021, L500.2500, L300.3900 ####[facility] [address] [place], [address] Hemoglobin (Bld) [Mass/Vol] 11.1 g/dL Low 13.0-16.5 [facility] Comment on above: Performed By: #### L 300.4310, L100.0100, L501.4021, L500.2500, L300.3900 ####[facility] [address] [place], [address] IG% 0.100 Normal 0.0-0.9 [facility] Comment on above: Result Comment: IG% - Immature Granulocytes (promyelocytes, myelocytes andmetamyelocytes) > 1% indicates that a LEFT SHIFT is Present. Performed By: #### L 300.4310, L100.0100, L501.4021, L500.2500, L300.3900 ####[facility] [address] [place], [address] Lymphocytes/100 WBC (Bld) 31.9 % Normal 19-41 [facility] Comment on above: Performed By: #### L 300.4310, L100.0100, L501.4021, L500.2500, L300.3900 ####[facility] [address] [place], [address] MCH (RBC) [Entitic mass] 30.5 pg Normal 27.0-32.0 [facility] Comment on above: Performed By: #### L 300.4310, L100.0100, L501.4021, L500.2500, L300.3900 ####[facility] [address] [place], [address] MCHC (RBC) [Mass/Vol] 31.9 g/dL Low 32-36 [facility] Comment on above: Performed By: #### L 300.4310, L100.0100, L501.4021, L500.2500, L300.3900 ####[facility] [address] [place], [address] MCV (RBC) [Entitic vol] 95.6 fL High 80-94 [facility] Comment on above: Performed By: #### L 300.4310, L100.0100, L501.4021, L500.2500, L300.3900 ####[facility] [address] [place], [address] Monocytes/100 WBC (Bld) 11.2 % High 0-10 [facility] Comment on above: Performed By: #### L 300.4310, L100.0100, L501.4021, L500.2500, L300.3900 ####[facility] [address] [place], [address] Neutrophils/100 WBC (Bld) 55.0 % Normal 47-70 [facility] Comment on above: Performed By: #### L 300.4310, L100.0100, L501.4021, L500.2500, L300.3900 ####[facility] [address] [place], [address] Nucleated RBC (Bld) [#/Vol] 0 10*3/uL Normal 0-5 [facility] Comment on above: Performed By: #### L 300.4310, L100.0100, L501.4021, L500.2500, L300.3900 ####[facility] [address] [place], [address] Platelet mean volume (Bld) [Entitic vol] 11.2 fL Normal 6.2-12.0 [facility] Comment on above: Performed By: #### L 300.4310, L100.0100, L501.4021, L500.2500, L300.3900 ####[facility] [address] [place], [address] Platelets (Bld) [#/Vol] 108 10*3/uL Low 150-450 [facility] Comment on above: Performed By: #### L 300.4310, L100.0100, L501.4021, L500.2500, L300.3900 ####[facility] [address] [place], [address] RBC (Bld) [#/Vol] 3.64 10*6/uL Low 4.6-6.2 [facility] Comment on above: Performed By: #### L 300.4310, L100.0100, L501.4021, L500.2500, L300.3900 ####[facility] [address] [place], [address] RDW SD 55.1 fl High 35.1-43.9 [facility] Comment on above: Performed By: #### L 300.4310, L100.0100, L501.4021, L500.2500, L300.3900 ####[facility] [address] [place], [address] WBC (Bld) [#/Vol] 7.2 10*3/uL Normal 4.4-11.0 [facility] Comment on above: Performed By: #### L 300.4310, L100.0100, L501.4021, L500.2500, L300.3900 ####[facility] [address] [place], [address] Carbon dioxide, total [Moles /volume] in Central venous bloodOrdered By: oRberto Tanner on 05-20-2025 CO2 [Moles/Vol] 25.3 mmol/L 21.0-32.0 [facility] Chest 1 Viewon 05-20-2025 Chest 1 View Normal [facility] Chloride assayOrdered By: Artur Tanner on 05-20-2025 Chloride [Moles/Vol] 103 mmol/L 98-108 [facility] Emergency Department Summary on 05-20-2025 Emergency Department Summary Normal [facility] Eosinophil percentageOrdered By: Roberto Tanner on 05-20-2025 Eosinophils/100 WBC (Bld) 1.4 % 0-5 [facility] Erythrocyte distribution wid th ratioOrdered By: Roberto Tanner on 05-20-2025 Erythrocyte distribution width (RBC) [Ratio] 15.7 % High 11.6-14.6 [facility] Erythrocyte distribution wid th standard deviationOrdered By: Roberto Mccord on 05-20-2025 Erythrocyte distribution width (RBC) [Ratio] 55.1 fl High 35.1-43.9 [facility] Glomerular filtration rate ( GFR) estimation/1.73 sq m using serum, plasma, or whole bOrdered By: Roberto Tanner on 05-20-2025 GFR/1.73 sq M.predicted among non-blacks MDRD (S/P/Bld) [Vol rate/Area] 79 mL/min/{1.73_m2} >60 [facility] Hematocrit Auto (Bld) [Volum e fraction]Ordered By: Roberto Tanner on 05-20-2025 Hematocrit (Bld) [Volume fraction] 34.8 % Low 40-54 [facility] Hemoglobin measurementOrdere d By: Roberto Tanner on 05-20-2025 Hemoglobin (Bld) [Mass/Vol] 11.1 g/dL Low 13.0-16.5 [facility] Immature granulocytes/100 WB C Auto (Bld)Ordered By: Roberto Flores on 05-20-2025 Immature granulocytes/100 WBC (Bld) 0.100 % 0.0-0.9 [facility] Ketones Test strip Ql (U)Ord ered By: [facility] on 05-20-2025 Ketones Ql (U) Negative Negative [facility] L501.4021on 05-20-2025 Trop T High Sen 52 ng/L High <=22 [facility] Comment on above: Result Comment: Crit ical Result(s) Called at 05/20/2025-13:42 by Garret??Results read back by same. Performed By: #### L 300.4310, L100.0100, L501.4021, L500.2500, L300.3900 ####[facility] [address] [place], [address] MCV (mean corpuscular volume ) determinationOrdered By: [facility] HospitalFlex on 05-20-2025 MCV (RBC) [Entitic vol] 95.6 fL High 80-94 [facility] Mean corpuscular hemoglobin (MCH) determinationOrdered By: [facility] RehabilitationmaikelAntoine on 05-20-2025 MCH (RBC) [Entitic mass] 30.5 pg 27.0-32.0 [facility] Monocyte percentageOrdered B y: Roberto Tanner on 05-20-2025 Monocytes/100 WBC (Bld) 11.2 % High 0-10 [facility] Mucus LM Ql (Urine sed)Order ed By: [facility] RehabilitationLatoya on 05-20-2025 Mucus Ql (Urine sed) 0 SEEN /hpf [facility] Neutrophil percentageOrdered By: [facility] RehabilitationmaikelReggieFlex on 05-20-2025 Neutrophils/100 WBC (Bld) 55.0 % 47-70 [facility] Nitrite Test strip Ql (U)Ord ered By: Robertoesmer Tanner on 05-20-2025 Nitrite Ql (U) Negative Negative [facility] Partial Thromboplast Timeon 05-20-2025 aPTT Coag (Bld) [Time] 34.0 s Normal 24.1-36.2 [facility] Comment on above: Performed By: #### L 300.4310, L100.0100, L501.4021, L500.2500, L300.3900 ####[facility] [address] [place], [address] Platelet countOrdered By: Artur Tanner on 05-20-2025 Platelets (Bld) [#/Vol] 108 10*3/uL Low 150-450 [facility] Potassium measurement (mass/ volume)Ordered By: Roberto Tanner on 05-20-2025 Potassium (Unsp spec) [Mass/Vol] 4.2 mmol/L 3.3-5.1 [facility] Protein Test strip Ql (U)Ord ered By: Roberto Tanner on 05-20-2025 Protein Ql (U) 15 mg/dl High Negative [facility] Prothrombin Time w/INRon INR Coag (PPP) [Relative time] 1.4 {INR} Normal [facility] Comment on above: Performed By: #### L 300.4310, L100.0100, L501.4021, L500.2500, L300.3900 ####[facility] [address] [place], [address] PT Coag (PPP) [Time] 17.1 s High 11.7-14.9 [facility] Comment on above: Performed By: #### L 300.4310, L100.0100, L501.4021, L500.2500, L300.3900 ####[facility] [address] [place], [address] Prothrombin timeOrdered By: Roberto Tanner on 05-20-2025 PT Coag (PPP) [Time] 17.1 s High 11.7-14.9 [facility] RBC Auto (Bld) [#/Vol]Ordere d By: Roberto Tanner on 05-20-2025 RBC (Bld) [#/Vol] 3.64 10*6/uL Low 4.6-6.2 [facility] STROKE Brain/Head without Co nton 05-20-2025 STROKE Brain/Head without Cont Normal [facility] STROKE CTA Head AND Neck W/C onon 05-20-2025 STROKE CTA Head AND Neck W/Con Normal [facility] Serum creatinine measurement (mass/volume)Ordered By: Roberto NjAntoine on 05-20-2025 Creatinine [Mass/Vol] 0.93 mg/dL 0.70-1.20 [facility] Serum glucose measurement (m ass/volume)Ordered By: Robertoesmer NjReggieFlex on 05-20-2025 Glucose [Mass/Vol] 93 mg/dL 70-99 [facility] Serum or plasma calcium tay urement (mass/volume)Ordered By: Roberto [facility] CenterReggie Mccord on 05-20-2025 Calcium [Mass/Vol] 8.7 mg/dL 7.6-11.0 [facility] Serum or plasma urea nitroge n measurement (mass/volume)Ordered By: [facility] RehabilitationmaikelReggieFlex on 05-20-2025 Urea nitrogen [Mass/Vol] 18 mg/dL 4-19 [facility] Sodium levelOrdered By: Macario GallagherFlex on 05-20-2025 Sodium [Moles/Vol] 136 mmol/L 133-145 [facility] Squamous epithelial cells de tection in urine sediment by light microscopyOrdered By: Roberto Latoya on 05-20-2025 Epithelial cells.squamous LM Ql (Urine sed) 0-5 SEEN /hpf 0-5 [facility] Troponin T HS 2 HRon 025 Trop T High Sen 51 ng/L High <=22 [facility] Comment on above: Performed By: #### L 499.0042 ####[facility] [address] [place], [address] Troponin T.cardiac [Mass/vol ume] in Serum or Plasma by High sensitivity methodOrdered By: Roberto Tanner on 05-20-2025 Troponin T.cardiac High sensitivity method [Mass/Vol] 51 ng/L High <22 [facility] Troponin T.cardiac High sensitivity method [Mass/Vol] 52 ng/L High <22 [facility] Urinalysis, Completeon 05-20 EPI,SQUAMOUS 0-5 SEEN Normal 0-5 [facility] Comment on above: Order Comment: EBONY CTOR TO SPECIFY Performed By: #### L 400.0001 ####[facility] [address] [place], [address] WBC 0-5 SEEN Normal 0-5 [facility] Comment on above: Order Comment: EBONY CTOR TO SPECIFY Performed By: #### L 400.0001 ####[facility] [address] [place], [address] BACTERIA 0 SEEN Normal None Seen [facility] Comment on above: Order Comment: EBONY CTOR TO SPECIFY Performed By: #### L 400.0001 ####[facility] [address] [place], [address] Mucus Ql (Urine sed) 0 SEEN Normal [facility] Comment on above: Order Comment: EBONY CTOR TO SPECIFY Performed By: #### L 400.0001 ####[facility] [address] [place], [address] RBC 0 SEEN Normal 0-5 [facility] Comment on above: Order Comment: EBONY CTOR TO SPECIFY Performed By: #### L 400.0001 ####[facility] [address] [place], [address] Urine clarityOrdered By: Dami Tanner on 05-20-2025 Clarity (U) Clear Clear [facility] Urine color determinationOrd ered By: Roberto Tanner on 05-20-2025 Color (U) Yellow Yellow [facility] Urine glucose detectionOrder ed By: Roberto Tanner on 05-20-2025 Glucose Ql (U) Normal mg/dl Normal [facility] Urine leukocyte esterase det ection by dipstickOrdered By: Roberto Tanner on 05-20-2025 Leukocyte esterase Test strip Ql (U) 25 /ul High Negative [facility] Urine pHOrdered By: Roberto Kleni on 05-20-2025 pH (U) 6.0 [pH] 5.0 - 8.0 [facility] Urine sediment bacteria coun t by microscopy (number/high power field)Ordered By: Roberto Tanner on 05-20-2025 Bacteria LM.HPF (Urine sed) [#/Area] 0 /[HPF] None Seen [facility] Urine specific gravity measu rementOrdered By: Roberto Tanner on 05-20-2025 Specific gravity (U) [Rel density] 1.010 1.002-1.030 [facility] Urine urobilinogen measureme ntOrdered By: Roberto Tanner on 05-20-2025 Urobilinogen Ql (U) Normal mg/dl Normal [facility] White blood cell (WBC) count Ordered By: Roberto Tanner on 05-20-2025 WBC (Bld) [#/Vol] 7.2 10*3/uL 4.4-11.0 [facility] White blood cell countOrdere d By: Roberto Tanner on 05-20-2025 White blood cell count 0-5 SEEN /hpf 0-5 [facility] CNOVon 05-14-2025 CNOV Office Visit (AGCARDPOB) JESSEE RUST ([id number]) 1935 Date Time Provider Department 05/14/25 2:20 PM CORINA NGUYEN AGCARDPOB During your visit today, we recorded the following information about you: Pulse Blood pressure Weight 52/minute 161/84 101.5 kg Corina Nguyen MD 05/14/2025 5:30 PM Signed PRIMARY CARE PHYSICIAN: Umm Mario ([facility]) [address] [place] [address] REFERRING PHYSICIAN: Odalis Schmidt MD [address] [facility] [address] Patient Care Team: Umm Mario MD as PCP - General (Internal Medicine) Gretchen Nguyen CNP as Nurse Practitioner (Internal Medicine) Odalis Schmidt as Specialty Tap And Die Maker Technician (Cardiology) Recording using [employer] software for draft documentation of the visit was discussed with the patient/authorized fraud representative; all questions welcomed and answered. Patient/authorized fraud representative agreed to proceed CHIEF COMPLAINT: Evaluation of arrhythmia HISTORY OF PRESENT ILLNESS: Mr. Rust is a 89 year old male who presents today for evaluation of management of atrial fibrillation and stroke risk. He is accompanied by his but also his son and daughter by telephone speaker phone. Patient Overview: Mr. Rust is referred for evaluation of atrial fibrillation by [facility]. The atrial fibrillation has been increasing in frequency and duration recently. He reports symptoms of fatigue, though he has a long-standing history of fatigue. He has also been found to have bradycardia. Records from [facility] indicate suspicion that the atrial fibrillation is not substantially symptomatic. There is concern about unfavorable risk to benefit for oral anticoagulation therapy. He was seen by Dr. Schmidt of [facility] on 03/21/2025. He has a complex cardiovascular [...] atrial fibrillation. The patient was referred by [facility] for evaluation of atrial fibrillation, [...] (more content not included)... Normal [facility] ECG B/O W INTERP (MED OFFICE )on 05-14-2025 Interpretation and review of laboratory results Abnormal [facility] Atrial fibrillation with controlled ventricular response, average 61 bpm; normal QRS duration 86 ms; QTc 446 ms [facility] Anion gap in Serum or Plasma Ordered By: Maurice Longoria on 05-08-2025 Anion gap [Moles/Vol] 9 mmol/L 01-31 [facility] BUN/creatinine ratioOrdered By: Maurice Longoria on 05-08-2025 Urea nitrogen/Creatinine [Mass ratio] 16.2 mg/mg 07-08 [facility] Bilirubin, totalOrdered By: Maurice Longoria on 05-08-2025 Bilirubin [Mass/Vol] 0.61 mg/dL 0.00-1.30 [facility] CBC-Complete Blood Cnt No Di ffon 05-08-2025 Erythrocyte distribution width (RBC) [Ratio] 15.2 % High 11.6-14.6 [facility] Comment on above: Performed By: #### L 501.9520, L100.0500, L500.4050, L503.7505 ####[facility] [address] [place], [address] Hematocrit (Bld) [Volume fraction] 37.0 % Low 40-54 [facility] Comment on above: Performed By: #### L 501.9520, L100.0500, L500.4050, L503.7505 ####[facility] [address] [place], [address] Hemoglobin (Bld) [Mass/Vol] 11.8 g/dL Low 13.0-16.5 [facility] Comment on above: Performed By: #### L 501.9520, L100.0500, L500.4050, L503.7505 ####[facility] [address] [place], [address] MCH (RBC) [Entitic mass] 30.7 pg Normal 27.0-32.0 [facility] Comment on above: Performed By: #### L 501.9520, L100.0500, L500.4050, L503.7505 ####[facility] [address] [place], [address] MCHC (RBC) [Mass/Vol] 31.9 g/dL Low 32-36 [facility] Comment on above: Performed By: #### L 501.9520, L100.0500, L500.4050, L503.7505 ####[facility] [address] [place], [address] MCV (RBC) [Entitic vol] 96.4 fL High 80-94 [facility] Comment on above: Performed By: #### L 501.9520, L100.0500, L500.4050, L503.7505 ####[facility] [address] [place], [address] Platelet mean volume (Bld) [Entitic vol] 11.2 fL Normal 6.2-12.0 [facility] Comment on above: Performed By: #### L 501.9520, L100.0500, L500.4050, L503.7505 ####[facility] [address] [place], [address] Platelets (Bld) [#/Vol] 114 10*3/uL Low 150-450 [facility] Comment on above: Performed By: #### L 501.9520, L100.0500, L500.4050, L503.7505 ####[facility] [address] [place], [address] RBC (Bld) [#/Vol] 3.84 10*6/uL Low 4.6-6.2 [facility] Comment on above: Performed By: #### L 501.9520, L100.0500, L500.4050, L503.7505 ####[facility] [address] [place], [address] RDW SD 54.4 fl High 35.1-43.9 [facility] Comment on above: Performed By: #### L 501.9520, L100.0500, L500.4050, L503.7505 ####[facility] [address] [place], [address] WBC (Bld) [#/Vol] 6.7 10*3/uL Normal 4.4-11.0 [facility] Comment on above: Performed By: #### L 501.9520, L100.0500, L500.4050, L503.7505 ####[facility] [address] [place], [address] Carbon dioxide, total [Moles /volume] in Central venous bloodOrdered By: Maurice Longoria on 05-08-2025 CO2 [Moles/Vol] 26.6 mmol/L 21.0-32.0 [facility] Chloride assayOrdered By: Daniel Longoria on 05-08-2025 Chloride [Moles/Vol] 104 mmol/L 98-108 [facility] Comprehensive Metabolic Prof ilon 05-08-2025 Albumin [Mass/Vol] 3.5 g/dL Normal 3.4-4.8 [facility] Comment on above: Order Comment: PT DO ES NOT WANT STOOL SAMPLE Performed By: #### L 501.9520, L100.0500, L500.4050, L503.7505 ####[facility] [address] [place], [address] Albumin/Globulin [Mass ratio] 0.9 {ratio} Normal 0.9-2.4 [facility] Comment on above: Order Comment: PT DO ES NOT WANT STOOL SAMPLE Performed By: #### L 501.9520, L100.0500, L500.4050, L503.7505 ####[facility] [address] [place], [address] ALK PHOS 74 U/L Normal 40-129 [facility] Comment on above: Order Comment: PT DO ES NOT WANT STOOL SAMPLE Performed By: #### L 501.9520, L100.0500, L500.4050, L503.7505 ####[facility] [address] [place], [address] ALT [Catalytic activity/Vol] 11 U/L Normal <=46 [facility] Comment on above: Order Comment: PT DO ES NOT WANT STOOL SAMPLE Performed By: #### L 501.9520, L100.0500, L500.4050, L503.7505 ####[facility] [address] [place], [address] AST [Catalytic activity/Vol] 23 U/L Normal <=37 [facility] Comment on above: Order Comment: PT DO ES NOT WANT STOOL SAMPLE Performed By: #### L 501.9520, L100.0500, L500.4050, L503.7505 ####[facility] [address] [place], [address] Bilirubin [Mass/Vol] 0.61 mg/dL Normal 0.00-1.30 [facility] Comment on above: Order Comment: PT DO ES NOT WANT STOOL SAMPLE Performed By: #### L 501.9520, L100.0500, L500.4050, L503.7505 ####[facility] [address] [place], [address] BUN/CRE 16.2 RATIO Normal 10-20 [facility] Comment on above: Order Comment: PT DO ES NOT WANT STOOL SAMPLE Performed By: #### L 501.9520, L100.0500, L500.4050, L503.7505 ####[facility] [address] [place], [address] Calcium [Mass/Vol] 9.2 mg/dL Normal 7.6-11.0 [facility] Comment on above: Order Comment: PT DO ES NOT WANT STOOL SAMPLE Performed By: #### L 501.9520, L100.0500, L500.4050, L503.7505 ####[facility] [address] [place], [address] Chloride [Moles/Vol] 104 mmol/L Normal 98-108 [facility] Comment on above: Order Comment: PT DO ES NOT WANT STOOL SAMPLE Performed By: #### L 501.9520, L100.0500, L500.4050, L503.7505 ####[facility] [address] [place], [address] CO2 [Moles/Vol] 26.6 mmol/L Normal 21.0-32.0 [facility] Comment on above: Order Comment: PT DO ES NOT WANT STOOL SAMPLE Performed By: #### L 501.9520, L100.0500, L500.4050, L503.7505 ####[facility] [address] [place], [address] Creatinine [Mass/Vol] 1.02 mg/dL Normal 0.70-1.20 [facility] Comment on above: Order Comment: PT DO ES NOT WANT STOOL SAMPLE Performed By: #### L 501.9520, L100.0500, L500.4050, L503.7505 ####[facility] [address] [place], [address] GAP 9 Normal 5-15 [facility] Comment on above: Order Comment: PT DO ES NOT WANT STOOL SAMPLE Performed By: #### L 501.9520, L100.0500, L500.4050, L503.7505 ####[facility] [address] [place], [address] GFR/1.73 sq M.predicted among non-blacks MDRD (S/P/Bld) [Vol rate/Area] 71 mL/min/{1.73_m2} Normal >60 [facility] Comment on above: Order Comment: PT DO ES NOT WANT STOOL SAMPLE Result Comment: mL/m in/1.73m2 CKD-EPI Creatinine Equation (2020) Performed By: #### L 501.9520, L100.0500, L500.4050, L503.7505 ####[facility] [address] [place], [address] Globulin (S) [Mass/Vol] 3.8 g/dL Normal 2.2-4.2 [facility] Comment on above: Order Comment: PT DO ES NOT WANT STOOL SAMPLE Performed By: #### L 501.9520, L100.0500, L500.4050, L503.7505 ####[facility] [address] [place], [address] Glucose [Mass/Vol] 95 mg/dL Normal 70-99 [facility] Comment on above: Order Comment: PT DO ES NOT WANT STOOL SAMPLE Performed By: #### L 501.9520, L100.0500, L500.4050, L503.7505 ####[facility] [address] [place], [address] Potassium [Moles/Vol] 4.3 mmol/L Normal 3.3-5.1 [facility] Comment on above: Order Comment: PT DO ES NOT WANT STOOL SAMPLE Performed By: #### L 501.9520, L100.0500, L500.4050, L503.7505 ####[facility] [address] [place], [address] Sodium [Moles/Vol] 140 mmol/L Normal 133-145 [facility] Comment on above: Order Comment: PT DO ES NOT WANT STOOL SAMPLE Performed By: #### L 501.9520, L100.0500, L500.4050, L503.7505 ####[facility] [address] [place], [address] T PROT 7.4 g/dL Normal 5.9-8.4 [facility] Comment on above: Order Comment: PT DO ES NOT WANT STOOL SAMPLE Performed By: #### L 501.9520, L100.0500, L500.4050, L503.7505 ####[facility] [address] [place], [place], [address] Urea nitrogen [Mass/Vol] 17 mg/dL Normal 4-19 [facility] Comment on above: Order Comment: PT DO ES NOT WANT STOOL SAMPLE Performed By: #### L 501.9520, L100.0500, L500.4050, L503.0094 ####[facility] [address] [place], [place], [address] Erythrocyte distribution wid th ratioOrdered By: Maurice Longoria on 05-08-2025 Erythrocyte distribution width (RBC) [Ratio] 15.2 % High 11.6-14.6 [facility] Erythrocyte distribution wid th standard deviationOrdered By: Maurice Longoria on 05-08-2025 Erythrocyte distribution width (RBC) [Ratio] 54.4 fl High 35.1-43.9 [facility] Glomerular filtration rate ( GFR) estimation/1.73 sq m using serum, plasma, or whole bOrdered By: Maurice Longoria on 05-08-2025 GFR/1.73 sq M.predicted among non-blacks MDRD (S/P/Bld) [Vol rate/Area] 71 mL/min/{1.73_m2} >60 [facility] Comment on above: mL/min/1.73m2 CKD-EP I Creatinine Equation (2020) Hematocrit Auto (Bld) [Volum e fraction]Ordered By: Maurice Longoria on 05-08-2025 Hematocrit (Bld) [Volume fraction] 37.0 % Low 40-54 [facility] Hemoglobin measurementOrdere d By: Maurice Longoria on 05-08-2025 Hemoglobin (Bld) [Mass/Vol] 11.8 g/dL Low 13.0-16.5 [facility] Internal Medicine Office Vis iton 05-08-2025 Internal Medicine Office Visit Normal [facility] Laboratory - Chemistry and C hemistry - challengeOrdered By: Maurice Longoria on 05-08-2025 AST [Catalytic activity/Vol] 23 U/L <38 [facility] MCV (mean corpuscular volume ) determinationOrdered By: Maurice Longoria on 05-08-2025 MCV (RBC) [Entitic vol] 96.4 fL High 80-94 [facility] Mean corpuscular hemoglobin (MCH) determinationOrdered By: Maurice Longoria on 05-08-2025 MCH (RBC) [Entitic mass] 30.7 pg 27.0-32.0 [facility] Mean corpuscular hemoglobin concentration (MCHC) determinationOrdered By: Maurice Longoria on 05-08-2025 MCHC (RBC) [Mass/Vol] 31.9 g/dL Low 32-36 [facility] Mean platelet volume determi nationOrdered By: Maurice Longoria on 05-08-2025 Platelet mean volume (Bld) [Entitic vol] 11.2 fL 6.2-12.0 [facility] Natriuretic peptide.B prohor khloe N-Terminal [Mass/volume] in Serum or PlasmaOrdered By: Maurice Longoria on 05-08-2025 Natriuretic peptide.B prohormone N-Terminal [Mass/Vol] 3073 pg/mL High <1800 [facility] [facility] Comment on above: Heart Failure Unlike ly: < 300 pg/mLHeart Failure Likely< 50 Years: > 450 pg/mL50-75 Years: > 900 pg/mL>75 Years: > 1800 pg/mL No Panel InformationOrdered By: Maurice Longoria on 05-08-2025 23 U/L <38 [facility] Platelet countOrdered By: Daniel Longoria on 05-08-2025 Platelets (Bld) [#/Vol] 114 10*3/uL Low 150-450 [facility] Potassium measurement (mass/ volume)Ordered By: Maurice Longoria on 05-08-2025 Potassium (Unsp spec) [Mass/Vol] 4.3 mmol/L 3.3-5.1 [facility] Pro- Brain NATRIURETIC PEPTI Scotty 05-08-2025 Natriuretic peptide B (Bld) [Mass/Vol] 3073 pg/mL High <=1800 [facility] Comment on above: Order Comment: PT DO ES NOT WANT STOOL SAMPLE Result Comment: Hear t Failure Unlikely: < 300 pg/mLHeart Failure Likely< 50 Years: > 450 pg/mL50-75 Years: > 900 pg/mL>75 Years: > 1800 pg/mL Performed By: #### L 501.9520, L100.0500, L500.4050, L503.7505 ####[facility] [address] [place], [address] RBC Auto (Bld) [#/Vol]Ordere d By: Maurice Longoria on 05-08-2025 RBC (Bld) [#/Vol] 3.84 10*6/uL Low 4.6-6.2 [facility] Serum creatinine measurement (mass/volume)Ordered By: Maurice Longoria on 05-08-2025 Creatinine [Mass/Vol] 1.02 mg/dL 0.70-1.20 [facility] Serum globulin measurementOr dered By: Maurice Longoria on 05-08-2025 Globulin (S) [Mass/Vol] 3.8 g/dL 2.2-4.2 [facility] Serum glucose measurement (m ass/volume)Ordered By: Maurice Longoria on 05-08-2025 Glucose [Mass/Vol] 95 mg/dL 70-99 [facility] Serum or plasma alanine castellano otransferase (ALT) measurementOrdered By: Maurice Longoria on 05-08-2025 ALT [Catalytic activity/Vol] 11 U/L <47 [facility] Serum or plasma albumin tay urement (mass/volume)Ordered By: Maurice Longoria on 05-08-2025 Albumin [Mass/Vol] 3.5 g/dL 3.4-4.8 [facility] Serum or plasma albumin/glob ulin mass ratioOrdered By: Maurice Longoria on 05-08-2025 Albumin/Globulin [Mass ratio] 0.9 {ratio} 0.9-2.4 [facility] Serum or plasma alkaline lyndsey sphatase measurementOrdered By: Maurice Longoria on 05-08-2025 ALP [Catalytic activity/Vol] 74 U/L 40-129 [facility] Serum or plasma calcium tay urement (mass/volume)Ordered By: Maurice Longoria on 05-08-2025 Calcium [Mass/Vol] 9.2 mg/dL 7.6-11.0 [facility] Serum or plasma urea nitroge n measurement (mass/volume)Ordered By: Maurice Longoria on 05-08-2025 Urea nitrogen [Mass/Vol] 17 mg/dL 4-19 [facility] Sodium levelOrdered By: Forrest Longoria on 05-08-2025 Sodium [Moles/Vol] 140 mmol/L 133-145 [facility] TSH DL <= 0.005 mIU/L QnOrde red By: Maurice Longoria on 05-08-2025 TSH Qn 2.530 uIU/mL 0.300-4.200 [facility] Thyroid Stim Hormone (TSH)on 05-08-2025 TSH 2.530 uIU/mL Normal 0.300-4.200 [facility] Comment on above: Order Comment: PT DO ES NOT WANT STOOL SAMPLE Performed By: #### L 501.9520, L100.0500, L500.4050, L503.7505 ####[facility] [address] [place], [address] Total proteinOrdered By: Tereso bijan Swati on 05-08-2025 Protein [Mass/Vol] 7.4 g/dL 5.9-8.4 [facility] White blood cell (WBC) count Ordered By: Maurice Wayt on 05-08-2025 WBC (Bld) [#/Vol] 6.7 10*3/uL 4.4-11.0 [facility] Internal Medicine Office Vis iton 04-19-2025 Internal Medicine Office Visit Normal [facility] Echocardiogram study reportO rdered By: Vanessa Simmons on 04-05-2025 Study report [facility] [address] [place] [address] Echo Complete 04/02/25 1602 MR#: [id number] Acct: [id number] Name: JESSEE RUST Rep #:[id number] : 1935 89 From: Vanessa Simmons MD Attending Dr: Dr. Odalis Schmidt MD Status: REG CLI Ordering Dr: Odalis Schmidt MD Date: 04/02/25 Location: CVS Sex: M C Admitted: Reason For Study [...] diam: 3.7 cm LVOT area: 5.0 cm2 LAV(MOD-bp): 135.4 ml LVAd ap4: 35.2 cm2 [...] ml SI(MOD-sp4): 31.5 ml/m2 SI(MOD-sp2): 28.7 ml/m2 LA A4 area: 33.3 cm2 LA dimension(2D): 5.4 cm RA A4 area: 28.4 cm2 TAPSE: 1.8 cm Doppler Measurements & Calculations [...] 0.21 SHRUTHI(I,D): 1.0 cm2 SHRUTHI(V,D): 0.99 cm2 MR max nick: 578.7 cm/sec SV(LVOT): 80.6 ml PA V2 max: 82.0 cm/sec MR max P.0 mmHg PA V2 mean: 51.2 cm/sec MR mean nick: 466.6 cm/sec PA V2 VTI: 15.8 cm MR mean P.8 mmHg MR VTI: 198.4 cm TR max nick: 305.2 cm/sec TR max P.3 mmHg ECHO/Echo Complete Interpretation Summary Estimated LVEF 55%. Stage I diastolic dysfunction. Moderate mitral valve regurgitation. Moderate tricuspid valve regurgitation. RVSP estimated at 45 mmHg. Moderate aortic valve stenosis with mild regurgitation. Mean peak gradient 31 mmHg. Moderate biatrial dilatation. Ordering Physician: Odalis Schmidt Referring Physician: Umm Mario Performed By: Shawnee Krause, RDCS, RVT 04/05/25 1037 Date _ Vanessa Simmons MD CC: Dr. Umm Mario MD; Dr. Odalis Schmidt MD ~ Date Dictated: 04/02/25 1602 Date Transcribed: 04/05/25 1037 Front Office Secretary: Signed [facility] Work Phone: Echo Completeon 04-02-2025 Echo Complete Normal [facility] Cardiology Visit Reporton Cardiology Visit Report Normal [facility] Emergency Department Summary on 03-17-2025 Emergency Department Summary Normal [facility] Emergency Department Summary Normal [facility] Anion gap in Serum or Plasma Ordered By: Gretchen Nguyen on 03-14-2025 Anion gap [Moles/Vol] 12 mmol/L 01-31 [facility] BUN/creatinine ratioOrdered By: Gretchen Nguyen on 03-14-2025 Urea nitrogen/Creatinine [Mass ratio] 17.6 mg/mg - [facility] Basic Metabolic Profile (BMP )on 03-14-2025 GAP 12 Normal 01-31 [facility] Comment on above: Performed By: #### L 500.2500 ####[facility] [address] [place], [place], [id number] BUN/CRE 17.6 RATIO Normal 07-08 [facility] Comment on above: Performed By: #### L 500.2500 ####[facility] [address] [place], [place], [id number] Calcium [Mass/Vol] 9.4 mg/dL Normal 7.6-11.0 [facility] Comment on above: Performed By: #### L 500.2500 ####[facility] [address] [place], [address] Chloride [Moles/Vol] 100 mmol/L Normal 98-108 [facility] Comment on above: Performed By: #### L 500.2500 ####[facility] [address] [place], [address] CO2 [Moles/Vol] 27.3 mmol/L Normal 21.0-32.0 [facility] Comment on above: Performed By: #### L 500.2500 ####[facility] [address] [place], [address] Creatinine [Mass/Vol] 1.00 mg/dL Normal 0.70-1.20 [facility] Comment on above: Performed By: #### L 500.2500 ####[facility] [address] [place], [address] GFR/1.73 sq M.predicted among non-blacks MDRD (S/P/Bld) [Vol rate/Area] 72 mL/min/{1.73_m2} Normal >60 [facility] Comment on above: Result Comment: mL/m in/1.73m2 CKD-EPI Creatinine Equation (2020) Performed By: #### L 500.2500 ####[facility] [address] [place], [address] Glucose [Mass/Vol] 98 mg/dL Normal 70-99 [facility] Comment on above: Performed By: #### L 500.2500 ####[facility] [address] [place], [address] Potassium [Moles/Vol] 4.3 mmol/L Normal 3.3-5.1 [facility] Comment on above: Performed By: #### L 500.2500 ####[facility] [address] [place], [address] Sodium [Moles/Vol] 139 mmol/L Normal 133-145 [facility] Comment on above: Performed By: #### L 500.2500 ####[facility] [address] [place], [place], [address] Urea nitrogen [Mass/Vol] 18 mg/dL Normal 4-19 [facility] Comment on above: Performed By: #### L 500.2500 ####[facility] [address] [place], [place], [address] Carbon dioxide, total [Moles /volume] in Central venous bloodOrdered By: Gretchen Nguyen on 03-14-2025 CO2 [Moles/Vol] 27.3 mmol/L 21.0-32.0 [facility] Chloride assayOrdered By: Oli Nguyen on 03-14-2025 Chloride [Moles/Vol] 100 mmol/L 98-108 [facility] Glomerular filtration rate ( GFR) estimation/1.73 sq m using serum, plasma, or whole bOrdered By: Gretchen Nguyen on 03-14-2025 GFR/1.73 sq M.predicted among non-blacks MDRD (S/P/Bld) [Vol rate/Area] 72 mL/min/{1.73_m2} >60 [facility] Comment on above: mL/min/1.73m2 CKD-EP I Creatinine Equation (2020) Potassium measurement (mass/ volume)Ordered By: Gretchen Nguyen on 03-14-2025 Potassium (Unsp spec) [Mass/Vol] 4.3 mmol/L 3.3-5.1 [facility] Serum creatinine measurement (mass/volume)Ordered By: Gretchen Nguyen on 03-14-2025 Creatinine [Mass/Vol] 1.00 mg/dL 0.70-1.20 [facility] Serum glucose measurement (m ass/volume)Ordered By: Gretchen Nguyen on 03-14-2025 Glucose [Mass/Vol] 98 mg/dL 70-99 [facility] Serum or plasma calcium tay urement (mass/volume)Ordered By: Gretchen Nguyen on 03-14-2025 Calcium [Mass/Vol] 9.4 mg/dL 7.6-11.0 [facility] Serum or plasma urea nitroge n measurement (mass/volume)Ordered By: Gretchen Nguyen on 03-14-2025 Urea nitrogen [Mass/Vol] 18 mg/dL 01-05 [facility] Sodium levelOrdered By: Shagufta Nguyen on 03-14-2025 Sodium [Moles/Vol] 139 mmol/L 133-145 [facility] Emergency Department Summary on 03-10-2025 Emergency Department Summary Normal [facility] Foot min 3 Viewson 5 Foot min 3 Views Normal [facility] Anion gap in Serum or Plasma Ordered By: Gretchen Nguyen on 03-07-2025 Anion gap [Moles/Vol] 11 mmol/L 01-31 [facility] BUN/creatinine ratioOrdered By: Gretchen Nguyen on 03-07-2025 Urea nitrogen/Creatinine [Mass ratio] 18.4 mg/mg 07-08 [facility] Basic Metabolic Profile (BMP )on 03-07-2025 BUN/CRE 18.4 RATIO Normal 07-08 [facility] Comment on above: Performed By: #### L 500.2500, L503.7505 ####[facility] [address] [place], [address] Calcium [Mass/Vol] 9.3 mg/dL Normal 7.6-11.0 [facility] Comment on above: Performed By: #### L 500.2500, L503.7505 ####[facility] [address] [place], [address] Chloride [Moles/Vol] 103 mmol/L Normal 98-108 [facility] Comment on above: Performed By: #### L 500.2500, L503.7505 ####[facility] [address] [place], [address] CO2 [Moles/Vol] 26.9 mmol/L Normal 21.0-32.0 [facility] Comment on above: Performed By: #### L 500.2500, L503.7505 ####[facility] [address] [place], [address] Creatinine [Mass/Vol] 0.94 mg/dL Normal 0.70-1.20 [facility] Comment on above: Performed By: #### L 500.2500, L503.7505 ####[facility] [address] [place], [address] GAP 11 Normal 5-15 [facility] Comment on above: Performed By: #### L 500.2500, L503.7505 ####[facility] [address] [place], [address] GFR/1.73 sq M.predicted among non-blacks MDRD (S/P/Bld) [Vol rate/Area] 78 mL/min/{1.73_m2} Normal >60 [facility] Comment on above: Result Comment: mL/m in/1.73m2 CKD-EPI Creatinine Equation (2020) Performed By: #### L 500.2500, L503.7505 ####[facility] [address] [place], [address] Glucose [Mass/Vol] 79 mg/dL Normal 70-99 [facility] Comment on above: Performed By: #### L 500.2500, L503.7505 ####[facility] [address] [place], [address] Potassium [Moles/Vol] 4.9 mmol/L Normal 3.3-5.1 [facility] Comment on above: Result Comment: Hemo lysis present, Results??could be affected.?? Performed By: #### L 500.2500, L503.7505 ####[facility] [address] [place], [address] Sodium [Moles/Vol] 140 mmol/L Normal 133-145 [facility] Comment on above: Performed By: #### L 500.2500, L503.7505 ####[facility] [address] [place], [address] Urea nitrogen [Mass/Vol] 17 mg/dL Normal 4-19 [facility] Comment on above: Performed By: #### L 500.2500, L503.7505 ####[facility] [address] [place], [place], [id number] Carbon dioxide, total [Moles /volume] in Central venous bloodOrdered By: Gretchen Nguyen on 03-07-2025 CO2 [Moles/Vol] 26.9 mmol/L 21.0-32.0 [facility] Chloride assayOrdered By: Oli Nguyen on 03-07-2025 Chloride [Moles/Vol] 103 mmol/L 98-108 [facility] Glomerular filtration rate ( GFR) estimation/1.73 sq m using serum, plasma, or whole bOrdered By: Gretchen Nguyen on 03-07-2025 GFR/1.73 sq M.predicted among non-blacks MDRD (S/P/Bld) [Vol rate/Area] 78 mL/min/{1.73_m2} >60 [facility] Comment on above: mL/min/1.73m2 CKD-EP I Creatinine Equation (2020) L503.7505on 03-07-2025 Natriuretic peptide B (Bld) [Mass/Vol] 3513 pg/mL High <=1800 [facility] Comment on above: Result Comment: Hear t Failure Unlikely: < 300 pg/mLHeart Failure Likely< 50 Years: > 450 pg/mL50-75 Years: > 900 pg/mL>75 Years: > 1800 pg/mL Performed By: #### L 500.2500, L503.7505 ####[facility] [address] [place], [place], [address] Natriuretic peptide.B prohor khloe N-Terminal [Mass/volume] in Serum or PlasmaOrdered By: Gretchen Nguyen on 03-07-2025 Natriuretic peptide.B prohormone N-Terminal [Mass/Vol] 3513 pg/mL High <1800 [facility] Comment on above: Heart Failure Unlike ly: < 300 pg/mLHeart Failure Likely< 50 Years: > 450 pg/mL50-75 Years: > 900 pg/mL>75 Years: > 1800 pg/mL Potassium measurement (mass/ volume)Ordered By: Gretchen Nguyen on 03-07-2025 Potassium (Unsp spec) [Mass/Vol] 4.9 mmol/L 3.3-5.1 [facility] Comment on above: Hemolysis present, R esults could be affected. Serum creatinine measurement (mass/volume)Ordered By: Gretchen Ngueyn on 03-07-2025 Creatinine [Mass/Vol] 0.94 mg/dL 0.70-1.20 [facility] Serum glucose measurement (m ass/volume)Ordered By: Gretchen Nguyen on 03-07-2025 Glucose [Mass/Vol] 79 mg/dL 70-99 [facility] Serum or plasma calcium tay urement (mass/volume)Ordered By: Gretchen Nguyen on 03-07-2025 Calcium [Mass/Vol] 9.3 mg/dL 7.6-11.0 [facility] Serum or plasma urea nitroge n measurement (mass/volume)Ordered By: Gretchen Nguyen on 03-07-2025 Urea nitrogen [Mass/Vol] 17 mg/dL 4-19 [facility] Sodium levelOrdered By: Shagufta Nguyen on 03-07-2025 Sodium [Moles/Vol] 140 mmol/L 133-145 [facility] Cardiology Visit Reporton Cardiology Visit Report Normal [facility] Vitamin B12on 02-15-2025 Cobalamin (Vitamin B12) [Mass/Vol] 425 pg/mL Normal 180-914 [facility] Comment on above: Performed By: #### L 503.0106 ####[facility] [address] [place], [address] Absolute lymphocyte countOrd ered By: Umm Mario on 02-14-2025 Lymphocytes Auto (Unsp spec) [#/Vol] 2.30 10*3/uL 0.83-4.51 [facility] Absolute neutrophil countOrd ered By: Umm Mario on 02-14-2025 Neutrophils (Bld) [#/Vol] 4.7 10*3/uL 2.0-7.7 [facility] Anion gap in Serum or Plasma Ordered By: Umm Mario on 02-14-2025 Anion gap [Moles/Vol] 10 mmol/L 5-15 [facility] Automated lymphocyte count a s percentage of total leukocytesOrdered By: Umm Mario on 02-14-2025 Lymphocytes/100 WBC Auto (Unsp spec) 28.6 % 19-41 [facility] BUN/creatinine ratioOrdered By: josh Mario on 02-14-2025 Urea nitrogen/Creatinine [Mass ratio] 23.1 mg/mg High 10-20 [facility] Basophil percentageOrdered B y: Umm Mario on 02-14-2025 Basophils/100 WBC (Bld) 0.5 % 0-1 [facility] Bilirubin, totalOrdered By: josh Mario on 02-14-2025 Bilirubin [Mass/Vol] 0.37 mg/dL 0.00-1.30 [facility] CBC W/Diff, Automatedon 01-18 Absolute Lymph 2.30 X10 3/uL Normal 0.83-4.51 [facility] Comment on above: Performed By: #### L 506.0400, L501.5200, L501.9520, L500.4050, L100.0100 ####[facility] [address] [place], [address] Absolute Neut 4.7 X10 3/uL Normal 2.0-7.7 [facility] Comment on above: Performed By: #### L 506.0400, L501.5200, L501.9520, L500.4050, L100.0100 ####[facility] [address] [place], [address] Basophils/100 WBC (Bld) 0.5 % Normal 0-1 [facility] Comment on above: Performed By: #### L 506.0400, L501.5200, L501.9520, L500.4050, L100.0100 ####[facility] [address] [place], [address] Eosinophils/100 WBC (Bld) 2.6 % Normal 0-5 [facility] Comment on above: Performed By: #### L 506.0400, L501.5200, L501.9520, L500.4050, L100.0100 ####[facility] [address] [place], [address] Erythrocyte distribution width (RBC) [Ratio] 15.4 % High 11.6-14.6 [facility] Comment on above: Performed By: #### L 506.0400, L501.5200, L501.9520, L500.4050, L100.0100 ####[facility] [address] [place], [address] Hematocrit (Bld) [Volume fraction] 37.3 % Low 40-54 [facility] Comment on above: Performed By: #### L 506.0400, L501.5200, L501.9520, L500.4050, L100.0100 ####[facility] [address] [place], [address] Hemoglobin (Bld) [Mass/Vol] 12.0 g/dL Low 13.0-16.5 [facility] Comment on above: Performed By: #### L 506.0400, L501.5200, L501.9520, L500.4050, L100.0100 ####[facility] [address] [place], [address] IG% 0.100 Normal 0.0-0.9 [facility] Comment on above: Result Comment: IG% - Immature Granulocytes (promyelocytes, myelocytes andmetamyelocytes) > 1% indicates that a LEFT SHIFT is Present. Performed By: #### L 506.0400, L501.5200, L501.9520, L500.4050, L100.0100 ####[facility] [address] [place], [address] Lymphocytes/100 WBC (Bld) 28.6 % Normal 19-41 [facility] Comment on above: Performed By: #### L 506.0400, L501.5200, L501.9520, L500.4050, L100.0100 ####[facility] [address] [place], [address] MCH (RBC) [Entitic mass] 31.4 pg Normal 27.0-32.0 [facility] Comment on above: Performed By: #### L 506.0400, L501.5200, L501.9520, L500.4050, L100.0100 ####[facility] [address] [place], [address] MCHC (RBC) [Mass/Vol] 32.2 g/dL Normal 32-36 [facility] Comment on above: Performed By: #### L 506.0400, L501.5200, L501.9520, L500.4050, L100.0100 ####[facility] [address] [place], [address] MCV (RBC) [Entitic vol] 97.6 fL High 80-94 [facility] Comment on above: Performed By: #### L 506.0400, L501.5200, L501.9520, L500.4050, L100.0100 ####[facility] [address] [place], [address] Monocytes/100 WBC (Bld) 9.7 % Normal 0-10 [facility] Comment on above: Performed By: #### L 506.0400, L501.5200, L501.9520, L500.4050, L100.0100 ####[facility] [address] [place], [address] Neutrophils/100 WBC (Bld) 58.5 % Normal 47-70 [facility] Comment on above: Performed By: #### L 506.0400, L501.5200, L501.9520, L500.4050, L100.0100 ####[facility] [address] [place], [address] Nucleated RBC (Bld) [#/Vol] 0 10*3/uL Normal 0-5 [facility] Comment on above: Performed By: #### L 506.0400, L501.5200, L501.9520, L500.4050, L100.0100 ####[facility] [address] [place], [address] Platelet mean volume (Bld) [Entitic vol] 11.5 fL Normal 6.2-12.0 [facility] Comment on above: Performed By: #### L 506.0400, L501.5200, L501.9520, L500.4050, L100.0100 ####[facility] [address] [place], [address] Platelets (Bld) [#/Vol] 153 10*3/uL Normal 150-450 [facility] Comment on above: Performed By: #### L 506.0400, L501.5200, L501.9520, L500.4050, L100.0100 ####[facility] [address] [place], [address] RBC (Bld) [#/Vol] 3.82 10*6/uL Low 4.6-6.2 [facility] Comment on above: Performed By: #### L 506.0400, L501.5200, L501.9520, L500.4050, L100.0100 ####[facility] [address] [place], [address] RDW SD 54.5 fl High 35.1-43.9 [facility] Comment on above: Performed By: #### L 506.0400, L501.5200, L501.9520, L500.4050, L100.0100 ####[facility] [address] [place], [address] WBC (Bld) [#/Vol] 8.0 10*3/uL Normal 4.4-11.0 [facility] Comment on above: Performed By: #### L 506.0400, L501.5200, L501.9520, L500.4050, L100.0100 ####[facility] [address] [place], [address] Carbon dioxide, total [Moles /volume] in Central venous bloodOrdered By: Umm Mario on 02-14-2025 CO2 [Moles/Vol] 27.8 mmol/L 21.0-32.0 [facility] Chloride assayOrdered By: Aleah Mario on 02-14-2025 Chloride [Moles/Vol] 101 mmol/L 98-108 [facility] Comprehensive Metabolic Prof ilon 02-14-2025 Albumin [Mass/Vol] 3.9 g/dL Normal 3.4-4.8 [facility] Comment on above: Performed By: #### L 506.0400, L501.5200, L501.9520, L500.4050, L100.0100 ####[facility] [address] [place], [address] Albumin/Globulin [Mass ratio] 1.0 {ratio} Normal 0.9-2.4 [facility] Comment on above: Performed By: #### L 506.0400, L501.5200, L501.9520, L500.4050, L100.0100 ####[facility] [address] [place], [address] ALK PHOS 88 U/L Normal 40-129 [facility] Comment on above: Performed By: #### L 506.0400, L501.5200, L501.9520, L500.4050, L100.0100 ####[facility] [address] [place], [address] ALT [Catalytic activity/Vol] 17 U/L Normal <=46 [facility] Comment on above: Performed By: #### L 506.0400, L501.5200, L501.9520, L500.4050, L100.0100 ####[facility] [address] [place], [address] AST [Catalytic activity/Vol] 28 U/L Normal <=37 [facility] Comment on above: Performed By: #### L 506.0400, L501.5200, L501.9520, L500.4050, L100.0100 ####[facility] [address] [place], [address] Bilirubin [Mass/Vol] 0.37 mg/dL Normal 0.00-1.30 [facility] Comment on above: Performed By: #### L 506.0400, L501.5200, L501.9520, L500.4050, L100.0100 ####[facility] [address] [place], [address] BUN/CRE 23.1 RATIO High 10-20 [facility] Comment on above: Performed By: #### L 506.0400, L501.5200, L501.9520, L500.4050, L100.0100 ####[facility] [address] [place], [address] Calcium [Mass/Vol] 9.8 mg/dL Normal 7.6-11.0 [facility] Comment on above: Performed By: #### L 506.0400, L501.5200, L501.9520, L500.4050, L100.0100 ####[facility] [address] [place], [address] Chloride [Moles/Vol] 101 mmol/L Normal 98-108 [facility] Comment on above: Performed By: #### L 506.0400, L501.5200, L501.9520, L500.4050, L100.0100 ####[facility] [address] [place], [address] CO2 [Moles/Vol] 27.8 mmol/L Normal 21.0-32.0 [facility] Comment on above: Performed By: #### L 506.0400, L501.5200, L501.9520, L500.4050, L100.0100 ####[facility] [address] [place], [address] Creatinine [Mass/Vol] 0.93 mg/dL Normal 0.70-1.20 [facility] Comment on above: Performed By: #### L 506.0400, L501.5200, L501.9520, L500.4050, L100.0100 ####[facility] [address] [place], [address] GAP 10 Normal 5-15 [facility] Comment on above: Performed By: #### L 506.0400, L501.5200, L501.9520, L500.4050, L100.0100 ####[facility] [address] [place], [address] GFR/1.73 sq M.predicted among non-blacks MDRD (S/P/Bld) [Vol rate/Area] 80 mL/min/{1.73_m2} Normal >60 [facility] Comment on above: Result Comment: mL/m in/1.73m2 CKD-EPI Creatinine Equation (2020) Performed By: #### L 506.0400, L501.5200, L501.9520, L500.4050, L100.0100 ####[facility] [address] [place], [address] Globulin (S) [Mass/Vol] 4.0 g/dL Normal 2.2-4.2 [facility] Comment on above: Performed By: #### L 506.0400, L501.5200, L501.9520, L500.4050, L100.0100 ####[facility] [address], [address] Glucose [Mass/Vol] 94 mg/dL Normal 70-99 [facility] Comment on above: Performed By: #### L 506.0400, L501.5200, L501.9520, L500.4050, L100.0100 ####[facility] [address] [place], [address] Potassium [Moles/Vol] 4.0 mmol/L Normal 3.3-5.1 [facility] Comment on above: Performed By: #### L 506.0400, L501.5200, L501.9520, L500.4050, L100.0100 ####[facility] [address] [place], [address] Sodium [Moles/Vol] 138 mmol/L Normal 133-145 [facility] Comment on above: Performed By: #### L 506.0400, L501.5200, L501.9520, L500.4050, L100.0100 ####[facility] [address] [place], [address] T PROT 7.8 g/dL Normal 5.9-8.4 [facility] Comment on above: Performed By: #### L 506.0400, L501.5200, L501.9520, L500.4050, L100.0100 ####[facility] [address] [place], [address] Urea nitrogen [Mass/Vol] 21 mg/dL High 4-19 [facility] Comment on above: Performed By: #### L 506.0400, L501.5200, L501.9520, L500.4050, L100.0100 ####[facility] [address] [place], [address] Eosinophil percentageOrdered By: Umm Mario on 02-14-2025 Eosinophils/100 WBC (Bld) 2.6 % 0-5 [facility] Erythrocyte distribution wid th ratioOrdered By: josh Mario on 02-14-2025 Erythrocyte distribution width (RBC) [Ratio] 15.4 % High 11.6-14.6 [facility] Erythrocyte distribution wid th standard deviationOrdered By: josh Mario on 02-14-2025 Erythrocyte distribution width (RBC) [Ratio] 54.5 fl High 35.1-43.9 [facility] Glomerular filtration rate ( GFR) estimation/1.73 sq m using serum, plasma, or whole bOrdered By: zackeryglencoelilli Mario on 02-14-2025 GFR/1.73 sq M.predicted among non-blacks MDRD (S/P/Bld) [Vol rate/Area] 80 mL/min/{1.73_m2} >60 [facility] Comment on above: mL/min/1.73m2 CKD-EP I Creatinine Equation (2020) Hematocrit Auto (Bld) [Volum e fraction]Ordered By: Umm Mario on 02-14-2025 Hematocrit (Bld) [Volume fraction] 37.3 % Low 40-54 [facility] Hemoglobin measurementOrdere d By: Umm Mario on 02-14-2025 Hemoglobin (Bld) [Mass/Vol] 12.0 g/dL Low 13.0-16.5 [facility] Immature granulocytes/100 WB C Auto (Bld)Ordered By: Umm Mario on 02-14-2025 Immature granulocytes/100 WBC (Bld) 0.100 % 0.0-0.9 [facility] Comment on above: IG% - Immature Granu locytes (promyelocytes, myelocytes and metamyelocytes) > 1% indicates that a LEFT SHIFT is Present. Internal Medicine Office Vis gayla 02-14-2025 Internal Medicine Office Visit Normal [facility] Laboratory - Chemistry and C hemistry - challengeOrdered By: Umm Mario on 02-14-2025 AST [Catalytic activity/Vol] 28 U/L <38 [facility] MCV (mean corpuscular volume ) determinationOrdered By: Umm Mario on 02-14-2025 MCV (RBC) [Entitic vol] 97.6 fL High 80-94 [facility] Magnesiumon 02-14-2025 Magnesium [Mass/Vol] 2.1 mg/dL Normal 1.5-2.2 [facility] Comment on above: Performed By: #### L 506.0400, L501.5200, L501.9520, L500.4050, L100.0100 ####[facility] [address] [place], [address] Magnesium measurement (mass/ volume)Ordered By: Umm Mario on 02-14-2025 Magnesium (Unsp spec) [Mass/Vol] 2.1 mg/dL 1.5-2.2 [facility] Mean corpuscular hemoglobin (MCH) determinationOrdered By: Umm Mario on 02-14-2025 MCH (RBC) [Entitic mass] 31.4 pg 27.0-32.0 [facility] Mean corpuscular hemoglobin concentration (MCHC) determinationOrdered By: Umm Mario on 02-14-2025 MCHC (RBC) [Mass/Vol] 32.2 g/dL 32-36 [facility] Mean platelet volume determi nationOrdered By: Umm Mario on 02-14-2025 Platelet mean volume (Bld) [Entitic vol] 11.5 fL 6.2-12.0 [facility] Monocyte percentageOrdered B y: Umm Mario on 02-14-2025 Monocytes/100 WBC (Bld) 9.7 % 0-10 [facility] Neutrophil percentageOrdered By: Umm Mario on 02-14-2025 Neutrophils/100 WBC (Bld) 58.5 % 47-70 [facility] No Panel InformationOrdered By: Umm Mario on 02-14-2025 28 U/L <38 [facility] Nucleated red blood cell per centageOrdered By: Umm Mario on 02-14-2025 Nucleated RBC/100 WBC (Bld) [Ratio] 0 % 0-5 [facility] Platelet countOrdered By: Aleah Mario on 02-14-2025 Platelets (Bld) [#/Vol] 153 10*3/uL 150-450 [facility] Potassium measurement (mass/ volume)Ordered By: Umm Mario on 02-14-2025 Potassium (Unsp spec) [Mass/Vol] 4.0 mmol/L 3.3-5.1 [facility] RBC Auto (Bld) [#/Vol]Ordere d By: Umm Mario on 02-14-2025 RBC (Bld) [#/Vol] 3.82 10*6/uL Low 4.6-6.2 [facility] Serum creatinine measurement (mass/volume)Ordered By: Umm Mario on 02-14-2025 Creatinine [Mass/Vol] 0.93 mg/dL 0.70-1.20 [facility] Serum globulin measurementOr dered By: Umm Mario on 02-14-2025 Globulin (S) [Mass/Vol] 4.0 g/dL 2.2-4.2 [facility] Serum glucose measurement (m ass/volume)Ordered By: Umm Mario on 02-14-2025 Glucose [Mass/Vol] 94 mg/dL 70-99 [facility] Serum or plasma alanine castellano otransferase (ALT) measurementOrdered By: Umm Mario on 02-14-2025 ALT [Catalytic activity/Vol] 17 U/L <47 [facility] Serum or plasma albumin tay urement (mass/volume)Ordered By: Umm Mario on 02-14-2025 Albumin [Mass/Vol] 3.9 g/dL 3.4-4.8 [facility] Serum or plasma albumin/glob ulin mass ratioOrdered By: Umm Mario on 02-14-2025 Albumin/Globulin [Mass ratio] 1.0 {ratio} 0.9-2.4 [facility] Serum or plasma alkaline lyndsey sphatase measurementOrdered By: Umm Mario on 02-14-2025 ALP [Catalytic activity/Vol] 88 U/L 40-129 [facility] Serum or plasma calcium tay urement (mass/volume)Ordered By: Umm Mario on 02-14-2025 Calcium [Mass/Vol] 9.8 mg/dL 7.6-11.0 [facility] Serum or plasma urea nitroge n measurement (mass/volume)Ordered By: Umm Mario on 02-14-2025 Urea nitrogen [Mass/Vol] 21 mg/dL High 4-19 [facility] Sodium levelOrdered By: Arleth Mario on 02-14-2025 Sodium [Moles/Vol] 138 mmol/L 133-145 [facility] T4 Free Directon 02-14-2025 T4 FREE DIRECT 1.10 ng/dL Normal 0.76-1.46 [facility] Comment on above: Performed By: #### L 506.0400, L501.5200, L501.9520, L500.4050, L100.0100 ####[facility] [address] [place], [place], [id number] T4 freeOrdered By: Umm Mario on 02-14-2025 Free T4 [Mass/Vol] 1.10 ng/dL 0.76-1.46 [facility] TSH DL <= 0.005 mIU/L QnOrde red By: Umm Mario on 02-14-2025 TSH Qn 2.190 uIU/mL 0.300-4.200 [facility] Thyroid Stim Hormone (TSH)on 02-14-2025 TSH 2.190 uIU/mL Normal 0.300-4.200 [facility] Comment on above: Performed By: #### L 506.0400, L501.5200, L501.9520, L500.4050, L100.0100 ####[facility] [address] [place], [place], [id number] Total proteinOrdered By: Sonny Mario on 02-14-2025 Protein [Mass/Vol] 7.8 g/dL 5.9-8.4 [facility] Vitamin B12 ser/plasOrdered By: Umm Mario on 02-14-2025 Cobalamin (Vitamin B12) [Mass/Vol] 425 pg/mL 180-914 [facility] White blood cell (WBC) count Ordered By: Umm Mario on 02-14-2025 WBC (Bld) [#/Vol] 8.0 10*3/uL 4.4-11.0 [facility] Modified Barium Swallow Stud yon 01-02-2025 Modified Barium Swallow Study Normal [facility] Rubeola IgG Abon 12-29-2024 RUBEOLA Ab, IgG > 300.0 Normal Immune >16.4 [facility] Comment on above: Result Comment: Nega tive <13.5 Equivocal 13.5 - 16.4 Positive >16.4Presence of antibodies to Rubeola is presumptive evidenceof immunity except when acute infection is suspected.Performed at: [facility] [address] [place] [id number] Director: Herber Lindquist PhD, Phone: [phone] Performed By: #### L 3100.3300, L503.0106 ####[facility] [address] [place], [address] MeV IgG IA Qn (S)Ordered By: Umm Mario on 12-27-2024 Rubeola (Measles) IgG Antibody > 300.0 AU/mL Immune >16.4 [facility] Comment on above: Negative <13.5 Equiv ocal 13.5 - 16.4 Positive >16.4Presence of antibodies to Rubeola is presumptive evidenceof immunity except when acute infection is suspected.Performed at: [facility] [address] [id number] Director: Herber Lindquist PhD, Phone: [phone] Serum measles virus IgG anti body assay by immunoassay (units/volume)Ordered By: Umm Mario on 12-27-2024 MeV IgG IA Qn (S) > 300.0 AU/mL Immune >16.4 [facility] Comment on above: Negative <13.5 Equiv ocal 13.5 - 16.4 Positive >16.4Presence of antibodies to Rubeola is presumptive evidenceof immunity except when acute infection is suspected.Performed at: - [facility] [id number] [place], [place] [id number] Director: Herber Lindquist PhD, Phone: [phone] Vitamin B12on 12-27-2024 Cobalamin (Vitamin B12) [Mass/Vol] 512 pg/mL Normal 180-914 [facility] Comment on above: Performed By: #### L 3100.3300, L503.0106 ####[facility] [address] [place], [place], [id number] Vitamin B12 ser/plasOrdered By: Umm Mario on 12-27-2024 Cobalamin (Vitamin B12) [Mass/Vol] 512 pg/mL 180-914 [facility] Pulmonary Visit Reporton Pulmonary Visit Report Normal [facility] No Panel InformationOrdered By: Umm Mario on 11-30-2024 POC SARS CoV-2 Antigen Positive [facility] Office Visit Reporton 2024 Office Visit Report Normal [facility] CNPNon 11-27-2024 CNPN Telephone (OPHTMN) JESSEE RUST ([id number]) 1935 M Date Time Provider Department 11/27/24 [facility] During your visit today, we recorded [...] Had hives in the 70s Date Reviewed: 11/26/2024 Reviewed by: Adela Jarquin, OA - Fully Assessed Prescriptions as of 11/27/2024 - brinzolamide-brimonidin e (SIMBRINZA) 1%-0.2 % Ophth Susp Use 1 Drop in both eyes two times a day. - trimethoprim-polymyxin (POLYTRIM) 10,000 unit- 1 mg/mL ophthalmic solution [...] by mouth two times a day. - budesonide-formoterol (SYMBICORT) 160-4.5 mcg/actuation inhaler inhale 2 [...] OVERWEIGHT [E66.9] (more content not included)... Normal [facility] OCT OPTIC NERVE CIRRUS OU (B OTH EYES)on 11-26-2024 [facility] Study observation (narrative) [facility] Absolute lymphocyte countOrd ered By: Umm Mario on 11-15-2024 Lymphocytes Auto (Unsp spec) [#/Vol] 2.07 10*3/uL 0.83-4.51 [facility] Absolute neutrophil countOrd ered By: josh Mario on 11-15-2024 Neutrophils (Bld) [#/Vol] 4.5 10*3/uL 2.0-7.7 [facility] Automated lymphocyte count a s percentage of total leukocytesOrdered By: Umm Mario on 11-15-2024 Lymphocytes/100 WBC Auto (Unsp spec) 27.1 % 19-41 [facility] BUN/creatinine ratioOrdered By: Umm Mario on 11-15-2024 Urea nitrogen/Creatinine [Mass ratio] 19.3 mg/mg 10-20 [facility] Basic Metabolic Profile (BMP )on 11-15-2024 Anion gap [Moles/Vol] 8 mmol/L Normal 5-15 [facility] Comment on above: Performed By: #### L 500.4100, L503.6075, L100.0100, L503.6550, L503.6150, L500.2500 ####[facility] [address] [place], [address] BUN/CRE 19.3 RATIO Normal 10-20 [facility] Comment on above: Performed By: #### L 500.4100, L503.6075, L100.0100, L503.6550, L503.6150, L500.2500 ####[facility] [address] [place], [address] Calcium [Mass/Vol] 9.6 mg/dL Normal 7.6-11.0 [facility] Comment on above: Performed By: #### L 500.4100, L503.6075, L100.0100, L503.6550, L503.6150, L500.2500 ####[facility] [address] [place], [address] Chloride [Moles/Vol] 102 mmol/L Normal 96-108 [facility] Comment on above: Performed By: #### L 500.4100, L503.6075, L100.0100, L503.6550, L503.6150, L500.2500 ####[facility] [address] [place], [address] CO2 [Moles/Vol] 28.4 mmol/L Normal 22.0-29.0 [facility] Comment on above: Performed By: #### L 500.4100, L503.6075, L100.0100, L503.6550, L503.6150, L500.2500 ####[facility] [address] [place], [address] Creatinine [Mass/Vol] 0.86 mg/dL Normal 0.70-1.20 [facility] Comment on above: Performed By: #### L 500.4100, L503.6075, L100.0100, L503.6550, L503.6150, L500.2500 ####[facility] [address] [place], [address] GFR/1.73 sq M.predicted among non-blacks MDRD (S/P/Bld) [Vol rate/Area] 84 mL/min/{1.73_m2} Normal >60 [facility] Comment on above: Result Comment: mL/m in/1.73m2 CKD-EPI Creatinine Equation (2020) Performed By: #### L 500.4100, L503.6075, L100.0100, L503.6550, L503.6150, L500.2500 ####[facility] [address] [place], [address] Glucose [Mass/Vol] 87 mg/dL Normal 70-99 [facility] Comment on above: Performed By: #### L 500.4100, L503.6075, L100.0100, L503.6550, L503.6150, L500.2500 ####[facility] [address] [place], [address] Potassium [Moles/Vol] 4.4 mmol/L Normal 3.3-5.1 [facility] Comment on above: Performed By: #### L 500.4100, L503.6075, L100.0100, L503.6550, L503.6150, L500.2500 ####[facility] [address] [place], [address] Sodium [Moles/Vol] 139 mmol/L Normal 133-145 [facility] Comment on above: Performed By: #### L 500.4100, L503.6075, L100.0100, L503.6550, L503.6150, L500.2500 ####[facility] [address] [place], [address] Urea nitrogen [Mass/Vol] 17 mg/dL Normal 4-19 [facility] Comment on above: Performed By: #### L 500.4100, L503.6075, L100.0100, L503.6550, L503.6150, L500.2500 ####[facility] [address] [place], [address] Basophil percentageOrdered B y: Umm Mario on 11-15-2024 Basophils/100 WBC (Bld) 0.5 % 0-1 [facility] CBC W/Diff, Automatedon 10-21 Absolute Lymph 2.07 X10 3/uL Normal 0.83-4.51 [facility] Comment on above: Performed By: #### L 500.4100, L503.6075, L100.0100, L503.6550, L503.6150, L500.2500 ####[facility] [address] [place], [address] Absolute Neut 4.5 X10 3/uL Normal 2.0-7.7 [facility] Comment on above: Performed By: #### L 500.4100, L503.6075, L100.0100, L503.6550, L503.6150, L500.2500 ####[facility] [address] [place], [address] Basophils/100 WBC (Bld) 0.5 % Normal 0-1 [facility] Comment on above: Performed By: #### L 500.4100, L503.6075, L100.0100, L503.6550, L503.6150, L500.2500 ####[facility] [address] [place], [address] Eosinophils/100 WBC (Bld) 2.2 % Normal 0-5 [facility] Comment on above: Performed By: #### L 500.4100, L503.6075, L100.0100, L503.6550, L503.6150, L500.2500 ####[facility] [address] [place], [address] Erythrocyte distribution width (RBC) [Ratio] 14.4 % Normal 11.6-14.6 [facility] Comment on above: Performed By: #### L 500.4100, L503.6075, L100.0100, L503.6550, L503.6150, L500.2500 ####[facility] [address] [place], [address] Hematocrit (Bld) [Volume fraction] 38.2 % Low 40-54 [facility] Comment on above: Performed By: #### L 500.4100, L503.6075, L100.0100, L503.6550, L503.6150, L500.2500 ####[facility] [address] [place], [address] Hemoglobin (Bld) [Mass/Vol] 12.1 g/dL Low 13.0-16.5 [facility] Comment on above: Performed By: #### L 500.4100, L503.6075, L100.0100, L503.6550, L503.6150, L500.2500 ####[facility] [address] [place], [address] IG% 0.400 Normal 0.0-0.9 [facility] Comment on above: Result Comment: IG% - Immature Granulocytes (promyelocytes, myelocytes andmetamyelocytes) > 1% indicates that a LEFT SHIFT is Present. Performed By: #### L 500.4100, L503.6075, L100.0100, L503.6550, L503.6150, L500.2500 ####[facility] [address] [place], [address] Lymphocytes/100 WBC (Bld) 27.1 % Normal 19-41 [facility] Comment on above: Performed By: #### L 500.4100, L503.6075, L100.0100, L503.6550, L503.6150, L500.2500 ####[facility] [address] [place], [address] MCH (RBC) [Entitic mass] 31.5 pg Normal 27.0-32.0 [facility] Comment on above: Performed By: #### L 500.4100, L503.6075, L100.0100, L503.6550, L503.6150, L500.2500 ####[facility] [address] [place], [address] MCHC (RBC) [Mass/Vol] 31.7 g/dL Low 32-36 [facility] Comment on above: Performed By: #### L 500.4100, L503.6075, L100.0100, L503.6550, L503.6150, L500.2500 ####[facility] [address] [place], [address] MCV (RBC) [Entitic vol] 99.5 fL High 80-94 [facility] Comment on above: Performed By: #### L 500.4100, L503.6075, L100.0100, L503.6550, L503.6150, L500.2500 ####[facility] [address] [place], [address] Monocytes/100 WBC (Bld) 11.1 % High 0-10 [facility] Comment on above: Performed By: #### L 500.4100, L503.6075, L100.0100, L503.6550, L503.6150, L500.2500 ####[facility] [address] [place], [address] Neutrophils/100 WBC (Bld) 58.7 % Normal 47-70 [facility] Comment on above: Performed By: #### L 500.4100, L503.6075, L100.0100, L503.6550, L503.6150, L500.2500 ####[facility] [address] [place], [address] Nucleated RBC (Bld) [#/Vol] 0 10*3/uL Normal 0-5 [facility] Comment on above: Performed By: #### L 500.4100, L503.6075, L100.0100, L503.6550, L503.6150, L500.2500 ####[facility] [address] [place], [address] Platelet mean volume (Bld) [Entitic vol] 11.3 fL Normal 6.2-12.0 [facility] Comment on above: Performed By: #### L 500.4100, L503.6075, L100.0100, L503.6550, L503.6150, L500.2500 ####[facility] [address] [place], [address] Platelets (Bld) [#/Vol] 142 10*3/uL Low 150-450 [facility] Comment on above: Performed By: #### L 500.4100, L503.6075, L100.0100, L503.6550, L503.6150, L500.2500 ####[facility] [address] [place], [address] RBC (Bld) [#/Vol] 3.84 10*6/uL Low 4.6-6.2 [facility] Comment on above: Performed By: #### L 500.4100, L503.6075, L100.0100, L503.6550, L503.6150, L500.2500 ####[facility] [address] [place], [address] RDW SD 52.8 fl High 35.1-43.9 [facility] Comment on above: Performed By: #### L 500.4100, L503.6075, L100.0100, L503.6550, L503.6150, L500.2500 ####[facility] [address] [place], [address] WBC (Bld) [#/Vol] 7.6 10*3/uL Normal 4.4-11.0 [facility] Comment on above: Performed By: #### L 500.4100, L503.6075, L100.0100, L503.6550, L503.6150, L500.2500 ####[facility] [address] [place], [address] Calculated total iron bindin g capacityOrdered By: Umm Mario on 11-15-2024 Total Iron Binding Capacity 289 ug/dL 250-450 [facility] Calculated very low density lipoprotein (VLDL) cholesterol measurementOrdered By: Umm Mario on 11-15-2024 Calculated very low density lipoprotein (VLDL) cholesterol measurement 18 mg/dL 5-40 [facility] VLDL Cholesterol 18 mg/dL 5-40 [facility] Carbon dioxide measurementOr dered By: zackeryglencoelilli Mario on 11-15-2024 CO2 [Moles/Vol] 28.4 mmol/L 22.0-29.0 [facility] Chloride measurementOrdered By: [facility] on 11-15-2024 Chloride [Moles/Vol] 102 mmol/L 96-108 [facility] Eosinophil percentageOrdered By: Arlethglencoelilli Mario on 11-15-2024 Eosinophils/100 WBC (Bld) 2.2 % 0-5 [facility] Erythrocyte distribution wid th ratioOrdered By: Umm Mario on 11-15-2024 Erythrocyte distribution width (RBC) [Ratio] 14.4 % 11.6-14.6 [facility] Erythrocyte distribution wid th standard deviationOrdered By: Arlethglencoelilli Mario on 11-15-2024 Erythrocyte distribution width (RBC) [Entitic vol] 52.8 fL High 35.1-43.9 [facility] Erythrocyte distribution width (RBC) [Ratio] 52.8 fl High 35.1-43.9 [facility] Ferritinon 11-15-2024 Ferritin [Mass/Vol] 71 ng/mL Normal 37-417 [facility] Comment on above: Performed By: #### L 500.4100, L503.6075, L100.0100, L503.6550, L503.6150, L500.2500 ####[facility] [address] [place], [address] GFR/1.73 sq M.predicted radha g non-blacks MDRD (S/P/Bld) [Vol rate/Area]Ordered By: Umm Mario on 11-15-2024 Estimated GFR (MDRD) Non-Af Amer 84 >60 [facility] Comment on above: mL/min/1.73m2 CKD-EP I Creatinine Equation (2020) Glomerular filtration rate ( GFR) estimation/1.73 sq m using serum, plasma, or whole bOrdered By: Umm Mario on 11-15-2024 GFR/1.73 sq M.predicted among non-blacks MDRD (S/P/Bld) [Vol rate/Area] 84 mL/min/{1.73_m2} >60 [facility] Comment on above: mL/min/1.73m2 CKD-EP I Creatinine Equation (2020) Hematocrit Auto (Bld) [Volum e fraction]Ordered By: Umm Mario on 11-15-2024 Hematocrit (Bld) [Volume fraction] 38.2 % Low 40-54 [facility] Hemoglobin measurementOrdere d By: Umm Mario on 11-15-2024 Hemoglobin (Bld) [Mass/Vol] 12.1 g/dL Low 13.0-16.5 [facility] Immature granulocytes/100 WB C Auto (Bld)Ordered By: Umm Mario on 11-15-2024 Immature granulocytes/100 WBC (Bld) 0.400 % 0.0-0.9 [facility] Comment on above: IG% - Immature Granu locytes (promyelocytes, myelocytes and metamyelocytes) > 1% indicates that a LEFT SHIFT is Present. Internal Medicine Office Vis iton 11-15-2024 Internal Medicine Office Visit Normal [facility] Ironon 11-15-2024 Iron [Mass/Vol] 50 ug/dL Low 65-175 [facility] Comment on above: Performed By: #### L 500.4100, L503.6075, L100.0100, L503.6550, L503.6150, L500.2500 ####[facility] [address] [place], [address] Iron (Unsp spec) [Mass/Mass] Ordered By: Umm Mario on 11-15-2024 Iron [Mass/Vol] 50 ug/dL Low 65-175 [facility] Iron Binding Capacity,Totalo n 11-15-2024 TIBC 289 ug/dL Normal 250-450 [facility] Comment on above: Performed By: #### L 500.4100, L503.6075, L100.0100, L503.6550, L503.6150, L500.2500 ####[facility] [address] [place], [place], [phone] Iron measurement (mass/mass) Ordered By: Umm Mario on 11-15-2024 Iron (Unsp spec) [Mass/Mass] 50 ug/dL Low 65-175 [facility] LDL calc ser/plasOrdered By: Umm Mario on 11-15-2024 Cholesterol in LDL [Mass/Vol] 55 mg/dL [facility] Comment on above: Htnqxegotu=114-323 m g/dL & Higher Jqil=247 mg/dL or greater LDL Cholesterol, Calculated 55 mg/dL [facility] Comment on above: Susoscving=163-767 m g/dL & Higher Yhlk=590 mg/dL or greater Lipid Profileon 11-15-2024 CHOL:HDL 2.40 Normal [facility] Comment on above: Performed By: #### L 500.4100, L503.6075, L100.0100, L503.6550, L503.6150, L500.2500 ####[facility] [address] [place], [place], [phone] Cholesterol [Mass/Vol] 126 mg/dL Normal <=200 [facility] Comment on above: Result Comment: Chol esterol level, Desirable <200 mg/dLBorderline high cholesterol 200-239 mg/dLHigh cholesterol >=240 mg/dLRecommendations of the NCEP Adult Treatment Panel for thefollowing risk-cutoff thresholds for the [place]. Performed By: #### L 500.4100, L503.6075, L100.0100, L503.6550, L503.6150, L500.2500 ####[facility] [address] [place], [address] Cholesterol in HDL [Mass/Vol] 52 mg/dL Normal [facility] Comment on above: Result Comment: Dede onal Cholesterol Education Program (NCEP) guidelines:<40 mg/dL: Low HDL-cholesterol (major risk factor for CHD)>= 60 mg/dL: High HDL-cholesterol (negative risk factor forCHD)HDL-cholesterol is affected by a number of factors, e.g.smoking, exercise, hormones, sex and age. Performed By: #### L 500.4100, L503.6075, L100.0100, L503.6550, L503.6150, L500.2500 ####[facility] [address] [place], [address] Cholesterol in LDL [Mass/Vol] 55 mg/dL Normal [facility] Comment on above: Result Comment: Bord hdwouf=241-104 mg/dL Higher Ggic=628 mg/dL or greater Performed By: #### L 500.4100, L503.6075, L100.0100, L503.6550, L503.6150, L500.2500 ####[facility] [address] [place], [address] Cholesterol in VLDL [Mass/Vol] 18 mg/dL Normal 5-40 [facility] Comment on above: Performed By: #### L 500.4100, L503.6075, L100.0100, L503.6550, L503.6150, L500.2500 ####[facility] [address] [place], [address] Triglyceride [Mass/Vol] 91 mg/dL Normal [facility] Comment on above: Result Comment: The drugs N-Acetylcysteine and Metamizole may falselydepress this assay.Normal range: <150 mg/dLBorderline High: 150-199 mg/dLHigh: 200-499 mg/dLVery High: >500 mg/dL Performed By: #### L 500.4100, L503.6075, L100.0100, L503.6550, L503.6150, L500.2500 ####[facility] [address] [place], [address] Lymphocytes Auto (Unsp spec) [#/Vol]Ordered By: Umm Mario on 11-15-2024 Lymphocytes (Bld) [#/Vol] 2.07 10*3/uL 0.83-4.51 [facility] Lymphocytes/100 WBC Auto (Un sp spec)Ordered By: Umm Mario on 11-15-2024 Lymphocytes/100 WBC (Bld) 27.1 % 19-41 [facility] MCV (mean corpuscular volume ) determinationOrdered By: Umm Mario on 11-15-2024 MCV (RBC) [Entitic vol] 99.5 fL High 80-94 [facility] Mean corpuscular hemoglobin (MCH) determinationOrdered By: Umm Mario on 11-15-2024 MCH (RBC) [Entitic mass] 31.5 pg 27.0-32.0 [facility] Mean corpuscular hemoglobin concentration (MCHC) determinationOrdered By: Umm Mario on 11-15-2024 MCHC (RBC) [Mass/Vol] 31.7 g/dL Low 32-36 [facility] Mean platelet volume determi nationOrdered By: Umm Mario on 11-15-2024 Platelet mean volume (Bld) [Entitic vol] 11.3 fL 6.2-12.0 [facility] Monocyte percentageOrdered B y: Umm Mario on 11-15-2024 Monocytes/100 WBC (Bld) 11.1 % High 0-10 [facility] Neutrophil percentageOrdered By: Umm Mario on 11-15-2024 Neutrophils/100 WBC (Bld) 58.7 % 47-70 [facility] Nucleated red blood cell per centageOrdered By: Arlethjimlilli Gecarissamaria del carmen on 11-15-2024 Nucleated RBC/100 WBC (Bld) [Ratio] 0 % 0-5 [facility] Platelet countOrdered By: Aleah billylilli Mario on 11-15-2024 Platelets (Bld) [#/Vol] 142 10*3/uL Low 150-450 [facility] RBC Auto (Bld) [#/Vol]Ordere d By: Aleahbillylilli Mario on 11-15-2024 RBC (Bld) [#/Vol] 3.84 10*6/uL Low 4.6-6.2 [facility] Screening total cholesterol/ high density lipoprotein (HDL) cholesterol ratioOrdered By: Umm Mario on 11-15-2024 Cholesterol.total/Choles terol in HDL [Mass ratio] 2.40 {ratio} [facility] Serum creatinine measurement (mass/volume)Ordered By: Umm Mario on 11-15-2024 Creatinine [Mass/Vol] 0.86 mg/dL 0.70-1.20 [facility] Serum glucose measurement (m ass/volume)Ordered By: Umm Mario on 11-15-2024 Glucose [Mass/Vol] 87 mg/dL 70-99 [facility] Serum or plasma anion gap de termination (moles/volume)Ordered By: Umm Mario on 11-15-2024 Anion gap [Moles/Vol] 8 mmol/L 5-15 [facility] Serum or plasma calcium tay urement (mass/volume)Ordered By: Umm Mario on 11-15-2024 Calcium [Mass/Vol] 9.6 mg/dL 7.6-11.0 [facility] Serum or plasma cholesterol in HDL measurement (mass/volume)Ordered By: Umm Mario on 11-15-2024 Cholesterol in HDL [Mass/Vol] 52 mg/dL >40 [facility] Comment on above: National Cholesterol Education Program (NCEP) guidelines:<40 mg/dL: Low HDL-cholesterol (major risk factor for CHD)>= 60 mg/dL: High HDL-cholesterol (negative risk factor for CHD)HDL-cholesterol is affected by a number of factors, e.g. smoking, exercise, hormones, sex and age. Serum or plasma cholesterol measurement (mass/volume)Ordered By: Umm Mario on 11-15-2024 Cholesterol [Mass/Vol] 126 mg/dL <201 [facility] Comment on above: Cholesterol level, D esirable <200 mg/dLBorderline high cholesterol 200-239 mg/dLHigh cholesterol >=240 mg/dLRecommendations of the NCEP Adult Treatment Panel for the following risk-cutoff thresholds for the [place] population. Serum or plasma ferritin precious surement (mass/volume)Ordered By: Umm Mario on 11-15-2024 Ferritin [Mass/Vol] 71 ng/mL 37-417 [facility] Serum or plasma potassium me asurementOrdered By: Umm Mario on 11-15-2024 Potassium [Moles/Vol] 4.4 mmol/L 3.3-5.1 [facility] Serum or plasma sodium measu rement (moles/volume)Ordered By: Umm Mario on 11-15-2024 Sodium [Moles/Vol] 139 mmol/L 133-145 [facility] Serum or plasma urea nitroge n measurement (mass/volume)Ordered By: Umm Mario on 11-15-2024 Urea nitrogen [Mass/Vol] 17 mg/dL 4-19 [facility] Triglycerides measurementOrd ered By: Umm Mario on 11-15-2024 Triglyceride [Mass/Vol] 91 mg/dL <199 [facility] Comment on above: The drugs N-Acetylcy steine and Metamizole may falsely depress this assay. Normal range: <150 mg/dLBorderline High: 150-199 mg/dLHigh: 200-499 mg/dLVery High: >500 mg/dL White blood cell (WBC) count Ordered By: Umm Mario on 11-15-2024 WBC (Bld) [#/Vol] 7.6 10*3/uL 4.4-11.0 [facility] Cardiology Visit Reporton Cardiology Visit Report Normal [facility] CNPRajani 10-03-2024 CNPN Telephone (OPHTMN) YOCASTAJESSEE ([id number]) 1935 M Date Time Provider Department 10/03/24 [...] what should he do at this point? [phone] he was offered an appt on 10/08 at [facility] but he declined Shawn Shea MD filed at 07/30/2024 2:11 PM Status: Signed New from [place] Tmax: <22; Pachy: -, - Lasers and [...] 07/2025 [Other] Prescriptions as of 10/03/2024 - trimethoprim-polymyxin (POLYTRIM) 10,000 unit- 1 mg/mL ophthalmic solution [...] by mouth two times a day. - budesonide-formoterol (SYMBICORT) 160-4.5 mcg/actuation inhaler inhale 2 [...] 3 ta (more content not included)... Normal [facility] Absolute neutrophil countOrd ered By: Umm Mario on 08-15-2024 Neutrophils (Bld) [#/Vol] 3.2 10*3/uL 2.0-7.7 [facility] Albumin to globulin ratioOrd ered By: Umm Mario on 08-15-2024 Albumin/Globulin [Mass ratio] 0.7 {ratio} Low 0.9-2.4 [facility] Basophil percentageOrdered B y: Umm Mario on 08-15-2024 Basophils/100 WBC (Bld) 0.7 % 0-1 [facility] Bilirubin, totalOrdered By: Umm Mario on 08-15-2024 Bilirubin [Mass/Vol] 0.50 mg/dL 0.20-1.00 [facility] Comment on above: For patients on eltr ombopag therapy, use of Dimension [place] TBIL is not recommended. Blood urea nitrogen (BUN)/cr eatinine ratioOrdered By: Umm Mario on 08-15-2024 Urea nitrogen/Creatinine [Mass ratio] 15.4 mg/mg 10- [facility] CBC W/Diff, Automatedon 07-21 Absolute Lymph 1.84 X10 3/uL Normal 0.83-4.51 [facility] Comment on above: Performed By: #### L 500.4050, L503.0105, L100.0100 ####[facility] [address] [place], [address] Absolute Neut 3.2 X10 3/uL Normal 2.0-7.7 [facility] Comment on above: Performed By: #### L 500.4050, L503.0105, L100.0100 ####[facility] [address] [place], [address] Basophils/100 WBC (Bld) 0.7 % Normal 0-1 [facility] Comment on above: Performed By: #### L 500.4050, L503.0105, L100.0100 ####[facility] [address] [place], [address] Eosinophils/100 WBC (Bld) 3.2 % Normal 0-5 [facility] Comment on above: Performed By: #### L 500.4050, L503.0105, L100.0100 ####[facility] [address] [place], [address] Erythrocyte distribution width (RBC) [Ratio] 14.6 % Normal 11.6-14.6 [facility] Comment on above: Performed By: #### L 500.4050, L503.0105, L100.0100 ####[facility] [address] [place], [address] Hematocrit (Bld) [Volume fraction] 38.7 % Low 40-54 [facility] Comment on above: Performed By: #### L 500.4050, L503.0105, L100.0100 ####[facility] [address] [place], [address] Hemoglobin (Bld) [Mass/Vol] 12.5 g/dL Low 13.0-16.5 [facility] Comment on above: Performed By: #### L 500.4050, L503.0105, L100.0100 ####[facility] [address] [place], [address] IG% 0.300 Normal 0.0-0.9 [facility] Comment on above: Result Comment: IG% - Immature Granulocytes (promyelocytes, myelocytes andmetamyelocytes) > 1% indicates that a LEFT SHIFT is Present. Performed By: #### L 500.4050, L503.0105, L100.0100 ####[facility] [address] [place], [address] Lymphocytes/100 WBC (Bld) 31.2 % Normal 19-41 [facility] Comment on above: Performed By: #### L 500.4050, L503.0105, L100.0100 ####[facility] [address] [place], [address] MCH (RBC) [Entitic mass] 31.7 pg Normal 27.0-32.0 [facility] Comment on above: Performed By: #### L 500.4050, L503.0105, L100.0100 ####[facility] [address] [place], [address] MCHC (RBC) [Mass/Vol] 32.3 g/dL Normal 32-36 [facility] Comment on above: Performed By: #### L 500.4050, L503.0105, L100.0100 ####[facility] [address] [place], [address] MCV (RBC) [Entitic vol] 98.2 fL High 80-94 [facility] Comment on above: Performed By: #### L 500.4050, L503.0105, L100.0100 ####[facility] [address] [place], [address] Monocytes/100 WBC (Bld) 10.5 % High 0-10 [facility] Comment on above: Performed By: #### L 500.4050, L503.0105, L100.0100 ####[facility] [address] [place], [address] Neutrophils/100 WBC (Bld) 54.1 % Normal 47-70 [facility] Comment on above: Performed By: #### L 500.4050, L503.0105, L100.0100 ####[facility] [address] [place], [address] Nucleated RBC (Bld) [#/Vol] 0 10*3/uL Normal 0-5 [facility] Comment on above: Performed By: #### L 500.4050, L503.0105, L100.0100 ####[facility] [address] [place], [address] Platelet mean volume (Bld) [Entitic vol] 11.3 fL Normal 6.2-12.0 [facility] Comment on above: Performed By: #### L 500.4050, L503.0105, L100.0100 ####[facility] [address] [place], [address] Platelets (Bld) [#/Vol] 129 10*3/uL Low 150-450 [facility] Comment on above: Performed By: #### L 500.4050, L503.0105, L100.0100 ####[facility] [address] [place], [address] RBC (Bld) [#/Vol] 3.94 10*6/uL Low 4.6-6.2 [facility] Comment on above: Performed By: #### L 500.4050, L503.0105, L100.0100 ####[facility] [address] [place], [address] RDW SD 53.1 fl High 35.1-43.9 [facility] Comment on above: Performed By: #### L 500.4050, L503.0105, L100.0100 ####[facility] [address] [place], [address] WBC (Bld) [#/Vol] 5.9 10*3/uL Normal 4.4-11.0 [facility] Comment on above: Performed By: #### L 500.4050, L503.0105, L100.0100 ####[facility] [address] [place], [address] Carbon dioxide measurementOr dered By: Umm Mario on 08-15-2024 CO2 [Moles/Vol] 31.0 mmol/L 21.0-32.0 [facility] Chloride measurementOrdered By: Umm Mario on 08-15-2024 Chloride [Moles/Vol] 104 mmol/L 98-107 [facility] Comprehensive Metabolic Prof ilon 08-15-2024 Albumin [Mass/Vol] 3.3 g/dL Normal 3.2-5.0 [facility] Comment on above: Performed By: #### L 500.4050, L503.0105, L100.0100 ####[facility] [address] [place], [address] Albumin/Globulin [Mass ratio] 0.7 {ratio} Low 0.9-2.4 [facility] Comment on above: Performed By: #### L 500.4050, L503.0105, L100.0100 ####[facility] [address] [place], [id number] ALK P 91 U/L Normal 45-117 [facility] Comment on above: Performed By: #### L 500.4050, L503.0105, L100.0100 ####[facility] [address] [place], [id number] ALT [Catalytic activity/Vol] 21 U/L Normal 16-61 [facility] Comment on above: Performed By: #### L 500.4050, L503.0105, L100.0100 ####[facility] [address] [place], [address] AST [Catalytic activity/Vol] 27 U/L Normal 15-37 [facility] Comment on above: Performed By: #### L 500.4050, L503.0105, L100.0100 ####[facility] [address] [place], [address] Bilirubin [Mass/Vol] 0.50 mg/dL Normal 0.20-1.00 [facility] Comment on above: Result Comment: For patients on eltrombopag therapy, use of Dimension [place] TBIL is not recommended. Performed By: #### L 500.4050, L503.0105, L100.0100 ####[facility] [address] [place], [address] BUN/CRE 15.4 RATIO Normal 10-20 [facility] Comment on above: Performed By: #### L 500.4050, L503.0105, L100.0100 ####[facility] [address] [place], [address] CA,Total 9.6 mg/dL Normal 8.5-10.1 [facility] Comment on above: Performed By: #### L 500.4050, L503.0105, L100.0100 ####[facility] [address] [place], [address] Chloride [Moles/Vol] 104 mmol/L Normal 98-107 [facility] Comment on above: Performed By: #### L 500.4050, L503.0105, L100.0100 ####[facility] [address] [place], [address] CO2 [Moles/Vol] 31.0 mmol/L Normal 21.0-32.0 [facility] Comment on above: Performed By: #### L 500.4050, L503.0105, L100.0100 ####[facility] [address] [place], [address] Creatinine [Mass/Vol] 1.04 mg/dL Normal 0.70-1.30 [facility] Comment on above: Result Comment: The validity of the calculated GFR GFRAA in patients over70 years has not been determined. Clinical correlation isessential. Performed By: #### L 500.4050, L503.0105, L100.0100 ####[facility] [address] [place], [address] EST GFR - AA 87 mL/min Normal >60 [facility] Comment on above: Result Comment: Afri can [place] GFR Calc Performed By: #### L 500.4050, L503.0105, L100.0100 ####[facility] [address] [place], [address] GAP 5 Normal 5-15 [facility] Comment on above: Performed By: #### L 500.4050, L503.0105, L100.0100 ####[facility] [address] [place], [address] GFR/1.73 sq M.predicted among non-blacks MDRD (S/P/Bld) [Vol rate/Area] 72 mL/min/{1.73_m2} Normal >60 [facility] Comment on above: Result Comment: Non- GFR Calc Performed By: #### L 500.4050, L503.0105, L100.0100 ####[facility] [address] [place], [address] Globulin (S) [Mass/Vol] 4.7 g/dL High 2.2-4.2 [facility] Comment on above: Performed By: #### L 500.4050, L503.0105, L100.0100 ####[facility] [address] [place], [address] Glucose [Mass/Vol] 108 mg/dL High 74-106 [facility] Comment on above: Result Comment: Fast ing Glucose result from 100 to 125 mg/dLsuggests IMPAIRED HOMEOSTASIS per A.D.A. criteria. Performed By: #### L 500.4050, L503.0105, L100.0100 ####[facility] [address] [place], [address] Potassium [Moles/Vol] 3.9 mmol/L Normal 3.5-5.1 [facility] Comment on above: Performed By: #### L 500.4050, L503.0105, L100.0100 ####[facility] [address] [place], [address] Sodium [Moles/Vol] 140 mmol/L Normal 136-145 [facility] Comment on above: Performed By: #### L 500.4050, L503.0105, L100.0100 ####[facility] [address] [place], [address] T PROT 8.0 g/dL Normal 6.4-8.2 [facility] Comment on above: Performed By: #### L 500.4050, L503.0105, L100.0100 ####[facility] [address] [place], [address] Urea nitrogen [Mass/Vol] 16 mg/dL Normal 7-18 [facility] Comment on above: Performed By: #### L 500.4050, L503.0105, L100.0100 ####[facility] [address] [place], [address] Eosinophil percentageOrdered By: Umm Mario on 08-15-2024 Eosinophils/100 WBC (Bld) 3.2 % 0-5 [facility] Erythrocyte distribution wid th ratioOrdered By: zackeryglencoelilli Mario on 08-15-2024 Erythrocyte distribution width (RBC) [Ratio] 14.6 % 11.6-14.6 [facility] Erythrocyte distribution wid th standard deviationOrdered By: zackeryglencoelilli Mario on 08-15-2024 Erythrocyte distribution width (RBC) [Entitic vol] 53.1 fL High 35.1-43.9 [facility] Estimated glomerular filtrat ion rate (GFR) AmericanOrdered By: Umm Mario on 08-15-2024 Estimated GFR (MDRD) Amer 87 mL/min >60 [facility] Comment on above: GFR Calc Glomerular filtration rate ( GFR) estimationOrdered By: Umm Mario on 08-15-2024 Estimated GFR (MDRD) Non-Af Amer 72 mL/min >60 [facility] Comment on above: Non- GFR Calc Glucose measurementOrdered B y: Umm Mario on 08-15-2024 Glucose [Mass/Vol] 108 mg/dL High 74-106 [facility] Comment on above: Fasting Glucose resu lt from 100 to 125 mg/dL suggests IMPAIRED HOMEOSTASIS per A.D.A. criteria. Hematocrit Auto (Bld) [Volum e fraction]Ordered By: Umm Mario on 08-15-2024 Hematocrit (Bld) [Volume fraction] 38.7 % Low 40-54 [facility] Hemoglobin measurementOrdere d By: Umm Mario on 08-15-2024 Hemoglobin (Bld) [Mass/Vol] 12.5 g/dL Low 13.0-16.5 [facility] Immature granulocytes/100 WB C Auto (Bld)Ordered By: Umm Mario on 08-15-2024 Immature granulocytes/100 WBC (Bld) 0.300 % 0.0-0.9 [facility] Comment on above: IG% - Immature Granu locytes (promyelocytes, myelocytes and metamyelocytes) > 1% indicates that a LEFT SHIFT is Present. Internal Medicine Office Vis iton 08-15-2024 Internal Medicine Office Visit Normal [facility] Laboratory - Chemistry and C hemistry - challengeOrdered By: Umm Mario on 08-15-2024 AST [Catalytic activity/Vol] 27 U/L 15-37 [facility] Lymphocytes Auto (Unsp spec) [#/Vol]Ordered By: Umm Mario on 08-15-2024 Lymphocytes (Bld) [#/Vol] 1.84 10*3/uL 0.83-4.51 [facility] Lymphocytes/100 WBC Auto (Un sp spec)Ordered By: Umm Mario on 08-15-2024 Lymphocytes/100 WBC (Bld) 31.2 % 19-41 [facility] MCV (mean corpuscular volume ) determinationOrdered By: Umm Mario on 08-15-2024 MCV (RBC) [Entitic vol] 98.2 fL High 80-94 [facility] Mean corpuscular hemoglobin (MCH) determinationOrdered By: Umm Mario on 08-15-2024 MCH (RBC) [Entitic mass] 31.7 pg 27.0-32.0 [facility] Mean corpuscular hemoglobin concentration (MCHC) determinationOrdered By: Umm Mario on 08-15-2024 MCHC (RBC) [Mass/Vol] 32.3 g/dL 32-36 [facility] Mean platelet volume determi nationOrdered By: Umm Mario on 08-15-2024 Platelet mean volume (Bld) [Entitic vol] 11.3 fL 6.2-12.0 [facility] Monocyte percentageOrdered B y: Umm Mario on 08-15-2024 Monocytes/100 WBC (Bld) 10.5 % High 0-10 [facility] Neutrophil percentageOrdered By: Umm Mario on 08-15-2024 Neutrophils/100 WBC (Bld) 54.1 % 47-70 [facility] Nucleated red blood cell per centageOrdered By: Umm Mario on 08-15-2024 Nucleated RBC/100 WBC (Bld) [Ratio] 0 % 0-5 [facility] Platelet countOrdered By: Aleah Mario on 08-15-2024 Platelets (Bld) [#/Vol] 129 10*3/uL Low 150-450 [facility] Potassium measurementOrdered By: Umm Mario on 08-15-2024 Potassium [Moles/Vol] 3.9 mmol/L 3.5-5.1 [facility] RBC Auto (Bld) [#/Vol]Ordere d By: Umm Mario on 08-15-2024 RBC (Bld) [#/Vol] 3.94 10*6/uL Low 4.6-6.2 [facility] Serum anion gap measurementO rdered By: Umm Mario on 08-15-2024 Anion gap [Moles/Vol] 5 mmol/L 5-15 [facility] Serum globulin measurementOr dered By: Umm Mario on 08-15-2024 Globulin (S) [Mass/Vol] 4.7 g/dL High 2.2-4.2 [facility] Serum or plasma alanine castellano otransferase (ALT) measurementOrdered By: Umm Mario on 08-15-2024 ALT [Catalytic activity/Vol] 21 U/L 16-61 [facility] Serum or plasma albumin tay urement (mass/volume)Ordered By: Umm Mario on 08-15-2024 Albumin [Mass/Vol] 3.3 g/dL 3.2-5.0 [facility] Serum or plasma alkaline lyndsey sphatase measurementOrdered By: Umm Mario on 08-15-2024 ALP [Catalytic activity/Vol] 91 U/L 45-117 [facility] Serum or plasma calcium tay urement (mass/volume)Ordered By: Umm Gecarissamaria del carmen on 08-15-2024 Calcium [Mass/Vol] 9.6 mg/dL 8.5-10.1 [facility] Serum or plasma creatinine m easurement (mass/volume)Ordered By: Umm Gecarissamaria del carmen on 08-15-2024 Creatinine [Mass/Vol] 1.04 mg/dL 0.70-1.30 [facility] Comment on above: The validity of the calculated GFR & GFRAA in patients over 70 years has not been determined. Clinical correlation is essential. Serum or plasma urea nitroge n measurement (mass/volume)Ordered By: Umm Gecarissamaria del carmen on 08-15-2024 Urea nitrogen [Mass/Vol] 16 mg/dL 7-18 [facility] Sodium levelOrdered By: Aleahzackery kajal Shelbi on 08-15-2024 Sodium [Moles/Vol] 140 mmol/L 136-145 [facility] Total proteinOrdered By: Sonny spence Joocarissamaria del carmen on 08-15-2024 Protein [Mass/Vol] 8.0 g/dL 6.4-8.2 [facility] Vitamin B12on 08-15-2024 Cobalamin (Vitamin B12) [Mass/Vol] 992 pg/mL High 211-911 [facility] Comment on above: Performed By: #### L [id number], L503.0105, L100.0100 ####[facility] [id number] [place], [address] Vitamin B12 measurementOrder ed By: Arlethjimlilli Mario on 08-15-2024 Cobalamin (Vitamin B12) [Mass/Vol] 992 pg/mL High 211-911 [facility] White blood cell (WBC) count Ordered By: Arlethjimlilli Gecarissamaria del carmen on 08-15-2024 WBC (Bld) [#/Vol] 5.9 10*3/uL 4.4-11.0 [facility] Urgent Care Visit Reporton 1 10-09-2023 Urgent Care Visit Report Normal [facility] VISUAL FIELD 24-2 OU (BOTH E YES)on 07-30-2024 [facility] Radiology Study observation (narrative) [facility] CONSULT TO KEVIN Arias 03-14-2024 Patient declined sig center. Requested vision resources. Thank you. [facility] OCT OPTIC NERVE CIRRUS OU (B OTH EYES)on 03-12-2024 [facility] Study observation (narrative) [facility] Absolute lymphocyte countOrd ered By: Arsenio Mcgregor on 12-30-2023 Lymphocytes Auto (Unsp spec) [#/Vol] 2.79 10*3/uL 0.83-4.51 [facility] Automated lymphocyte count a s percentage of total leukocytesOrdered By: Arsenio Mcgregor on 12-30-2023 Lymphocytes/100 WBC Auto (Unsp spec) 35.0 % 19-41 [facility] Basophil percentageOrdered B y: Arsenio Mcgregor on 12-30-2023 Basophils/100 WBC (Bld) 0.9 % 0-1 [facility] Chloride [Moles/Vol] 105 mmol/L 98-107 [facility] Eosinophils/100 WBC (Bld) 5.4 % 0-5 [facility] Glucose [Mass/Vol] 103 mg/dL 74-106 [facility] Comment on above: Fasting Glucose resu lt from 100 to 125 mg/dL suggests IMPAIRED HOMEOSTASIS per A.D.A. criteria. Hemoglobin (Bld) [Mass/Vol] 9.8 g/dL 13.0-16.5 [facility] Monocytes/100 WBC (Bld) 13.6 % 0-10 [facility] Neutrophils (Bld) [#/Vol] 3.6 10*3/uL 2.0-7.7 [facility] Neutrophils/100 WBC (Bld) 44.5 % 47-70 [facility] Potassium [Moles/Vol] 4.2 mmol/L 3.5-5.1 [facility] Sodium [Moles/Vol] 138 mmol/L 136-145 [facility] WBC (Bld) [#/Vol] 8.0 10*3/uL 4.4-11.0 [facility] Determination of erythrocyte mean corpuscular volume (MCV)Ordered By: Arsenio Mcgregor on 12-30-2023 MCV (RBC) [Entitic vol] 96.4 fL 80-94 [facility] Erythrocyte distribution wid th ratioOrdered By: Arsenio Mcgregor on 12-30-2023 Erythrocyte distribution width (RBC) [Ratio] 15.6 % 11.6-14.6 [facility] Erythrocyte distribution wid th standard deviationOrdered By: Arsenio Mcgregor on 12-30-2023 Erythrocyte distribution width (RBC) [Entitic vol] 55.5 fL 35.1-43.9 [facility] Hematocrit Auto (Bld) [Volum e fraction]Ordered By: Arsenio Mcgregor on 12-30-2023 Hematocrit (Bld) [Volume fraction] 31.8 % 40-54 [facility] Immature granulocytes/100 WB C Auto (Bld)Ordered By: Arsenio Mcgregor 12-30-2023 Immature granulocytes/100 WBC (Bld) 0.600 % 0.0-0.9 [facility] Comment on above: IG% - Immature Granu locytes (promyelocytes, myelocytes and metamyelocytes) > 1% indicates that a LEFT SHIFT is Present. Laboratory - Chemistry and C hemistry - challengeOrdered By: Arseino Mcgregor 12-30-2023 CO2 [Moles/Vol] 33.0 mmol/L 21.0-32.0 [facility] Urea nitrogen/Creatinine [Mass ratio] 19.0 mg/mg 10-20 [facility] Laboratory - Hematology and Cell countsOrdered By: Arsenio Mcgregor 12-30-2023 MCH (RBC) [Entitic mass] 29.7 pg 27.0-32.0 [facility] MCHC (RBC) [Mass/Vol] 30.8 g/dL 32-36 [facility] Nucleated RBC/100 WBC (Bld) [Ratio] 0 % 0-5 [facility] Platelet mean volume (Bld) [Entitic vol] 9.7 fL 6.2-12.0 [facility] Platelets (Bld) [#/Vol] 183 10*3/uL 150-450 [facility] No Panel InformationOrdered By: Arsenio Mcgregor on 12-30-2023 Estimated Creatinine Clearance Calc 51.48 ml/min [facility] Estimated GFR (MDRD) Amer 70 mL/min >60 [facility] Comment on above: GFR Calc Estimated GFR (MDRD) Non-Af Amer 58 mL/min >60 [facility] Comment on above: Non- GFR Calc RBC Auto (Bld) [#/Vol]Ordere d By: Arseino Mcgregor on 12-30-2023 RBC (Bld) [#/Vol] 3.30 10*6/uL 4.6-6.2 [facility] Serum or plasma calcium tay urement (mass/volume)Ordered By: Arsenio Mcgregor on 12-30-2023 Calcium [Mass/Vol] 9.2 mg/dL 8.5-10.1 [facility] Serum or plasma creatinine m easurement (mass/volume)Ordered By: Arsenio Mcgregor on 12-30-2023 Creatinine [Mass/Vol] 1.26 mg/dL 0.70-1.30 [facility] Comment on above: The validity of the calculated GFR & GFRAA in patients over 70 years has not been determined. Clinical correlation is essential. Serum or plasma urea nitroge n measurement (mass/volume)Ordered By: Arsneio Mcgregor on 12-30-2023 Urea nitrogen [Mass/Vol] 24 mg/dL 7-18 [facility] Thin prep Papanicolaou smear with manual screeningOrdered By: Arsenio Mcgregor on 12-30-2023 Thin prep Papanicolaou smear with manual screening 0 5-15 [facility] Absolute lymphocyte countOrd ered By: Arsenio Mcgregor on 12-23-2023 Lymphocytes Auto (Unsp spec) [#/Vol] 1.50 10*3/uL 0.83-4.51 [facility] Automated lymphocyte count a s percentage of total leukocytesOrdered By: Arsenio Mcgregor on 12-23-2023 Lymphocytes/100 WBC Auto (Unsp spec) 18.8 % 19-41 [facility] Basophil percentageOrdered B y: Arsenio Mcgregor on 12-23-2023 Basophils/100 WBC (Bld) 0.5 % 0-1 [facility] Chloride [Moles/Vol] 103 mmol/L 98-107 [facility] Eosinophils/100 WBC (Bld) 2.0 % 0-5 [facility] Glucose [Mass/Vol] 102 mg/dL 74-106 [facility] Comment on above: Fasting Glucose resu lt from 100 to 125 mg/dL suggests IMPAIRED HOMEOSTASIS per A.D.A. criteria. Hemoglobin (Bld) [Mass/Vol] 10.0 g/dL 13.0-16.5 [facility] Monocytes/100 WBC (Bld) 16.8 % 0-10 [facility] Neutrophils (Bld) [#/Vol] 4.9 10*3/uL 2.0-7.7 [facility] Neutrophils/100 WBC (Bld) 61.5 % 47-70 [facility] Potassium [Moles/Vol] 4.0 mmol/L 3.5-5.1 [facility] Sodium [Moles/Vol] 136 mmol/L 136-145 [facility] WBC (Bld) [#/Vol] 8.0 10*3/uL 4.4-11.0 [facility] Determination of erythrocyte mean corpuscular volume (MCV)Ordered By: Arsenio Mcgregor on 12-23-2023 MCV (RBC) [Entitic vol] 95.3 fL 80-94 [facility] Erythrocyte distribution wid th ratioOrdered By: [facility] Erythrocyte distribution width (RBC) [Ratio] 15.6 % 11.6-14.6 [facility] Erythrocyte distribution wid th standard deviationOrdered By: Arsenio Mcgregor 12-23-2023 Erythrocyte distribution width (RBC) [Entitic vol] 54.6 fL 35.1-43.9 [facility] Hematocrit Auto (Bld) [Volum e fraction]Ordered By: [facility] Balbir 12-23-2023 Hematocrit (Bld) [Volume fraction] 32.1 % 40-54 [facility] Immature granulocytes/100 WB C Auto (Bld)Ordered By: Arsenio Mcgregor 12-23-2023 Immature granulocytes/100 WBC (Bld) 0.400 % 0.0-0.9 [facility] Comment on above: IG% - Immature Granu locytes (promyelocytes, myelocytes and metamyelocytes) > 1% indicates that a LEFT SHIFT is Present. Laboratory - Chemistry and C hemistry - challengeOrdered By: Arsenio Mcgregor on 12-23-2023 CO2 [Moles/Vol] 30.0 mmol/L 21.0-32.0 [facility] Urea nitrogen/Creatinine [Mass ratio] 26.4 mg/mg 10-20 [facility] Laboratory - Hematology and Cell countsOrdered By: Arsenio Mcgregor on 12-23-2023 MCH (RBC) [Entitic mass] 29.7 pg 27.0-32.0 [facility] MCHC (RBC) [Mass/Vol] 31.2 g/dL 32-36 [facility] Nucleated RBC/100 WBC (Bld) [Ratio] 0 % 0-5 [facility] Platelet mean volume (Bld) [Entitic vol] 9.8 fL 6.2-12.0 [facility] Platelets (Bld) [#/Vol] 188 10*3/uL 150-450 [facility] No Panel InformationOrdered By: Arsenio Mcgregor on 12-23-2023 Estimated Creatinine Clearance Calc 59.39 ml/min [facility] Estimated GFR (MDRD) Amer 82 mL/min >60 [facility] Comment on above: GFR Calc Estimated GFR (MDRD) Non-Af Amer 67 mL/min >60 [facility] Comment on above: Non- GFR Calc RBC Auto (Bld) [#/Vol]Ordere d By: Arsenio Mcgregor on 12-23-2023 RBC (Bld) [#/Vol] 3.37 10*6/uL 4.6-6.2 [facility] Serum or plasma calcium tay urement (mass/volume)Ordered By: Arsenio Mcgregor on 12-23-2023 Calcium [Mass/Vol] 9.0 mg/dL 8.5-10.1 [facility] Serum or plasma creatinine m easurement (mass/volume)Ordered By: Arsenio Mcgregor on 12-23-2023 Creatinine [Mass/Vol] 1.10 mg/dL 0.70-1.30 [facility] Comment on above: The validity of the calculated GFR & GFRAA in patients over 70 years has not been determined. Clinical correlation is essential. Serum or plasma urea nitroge n measurement (mass/volume)Ordered By: Arsenio Mcgregor on 12-23-2023 Urea nitrogen [Mass/Vol] 29 mg/dL 7-18 [facility] Thin prep Papanicolaou smear with manual screeningOrdered By: Arsenio Mcgregor on 12-23-2023 Thin prep Papanicolaou smear with manual screening 3 5-15 [facility] Basophil percentageOrdered B y: Arsenio Mcgregor on 12-10-2023 Basophil percentage 50-100 SEEN /hpf 0-5 [facility] Bilirubin Test strip Ql (U)O rdered By: Arsenio Mcgregor on 12-10-2023 Bilirubin Ql (U) Negative Negative [facility] Culture, urineOrdered By: Izaiah Mcgregor on 12-10-2023 Bacteria identified Cx Nom (U) Presumptive C albicans [facility] Bacteria identified Cx Nom (U) Negative [facility] Hyaline casts LM.LPF (Urine sed) [#/Area]Ordered By: Arsenio Mcgregor on 12-10-2023 Hyaline casts (Urine sed) [#/Area] 0 /[LPF] 0-5 [facility] Ketones Test strip Ql (U)Ord ered By: Arsenio Mcgregor on 12-10-2023 Ketones Ql (U) Negative Negative [facility] Mucus LM Ql (Urine sed)Order ed By: Arsenio Mcgregor on 12-10-2023 Mucus Ql (Urine sed) 1+ /hpf [facility] Nitrite Test strip Ql (U)Ord ered By: Arsenio Mcgregor on 12-10-2023 Nitrite Ql (U) Negative Negative [facility] No Panel InformationOrdered By: Arsenio Mcgregor on 12-10-2023 Urine RBC 25-50 SEEN /hpf 0-5 [facility] Protein Test strip Ql (U)Ord ered By: Arsenio Mcgregor on 12-10-2023 Protein Ql (U) 30 mg/dl Negative [facility] Squamous epithelial cells de tection in urine sediment by light microscopyOrdered By: Arsenio Mcgregor on 12-10-2023 Epithelial cells.squamous LM Ql (Urine sed) 0-5 SEEN /hpf 0-5 [facility] Urine blood detectionOrdered By: Arsenio Mcgregor on 12-10-2023 RBC Ql (U) 250 /ul Negative [facility] Urine clarityOrdered By: Arsenio Mcgregor on 12-10-2023 Clarity (U) Sl. Cloudy Clear [facility] Urine color determinationOrd ered By: Arsenio Mcgregor on 12-10-2023 Color (U) Yellow Yellow [facility] Urine glucose detectionOrder ed By: Arsenio Mcgregor on 12-10-2023 Glucose Ql (U) Normal mg/dl Normal [facility] Urine leukocyte esterase det ection by dipstickOrdered By: Arsenio Mcgregor on 12-10-2023 Leukocyte esterase Test strip Ql (U) 500 /ul Negative [facility] Urine pHOrdered By: Arsenio Mcgregor on 12-10-2023 pH (U) 6.0 [pH] 5.0 - 8.0 [facility] Urine sediment bacteria coun t by microscopy (number/high power field)Ordered By: Arsenio Mcgregor on 12-10-2023 Bacteria LM.HPF (Urine sed) [#/Area] 1 /[HPF] None Seen [facility] Urine specific gravity measu rementOrdered By: Arsenio Mcgregor on 12-10-2023 Specific gravity (U) [Rel density] 1.010 1.002-1.030 [facility] Urine urobilinogen measureme ntOrdered By: Arsenio Mcgregor on 12-10-2023 Urobilinogen Ql (U) Normal mg/dl Normal [facility] Blood manual differential co mment interpretation (narrative result)Ordered By: Arsenio Mcgregor on 12-09-2023 Manual differential comment Theodore (Bld) [Interp] SCANNED [facility] Comment on above: MONOCYTOSIS PRESENT Absolute lymphocyte countOrd ered By: Klaudia Gonzales on 12-08-2023 Lymphocytes Auto (Unsp spec) [#/Vol] 1.74 10*3/uL 0.83-4.51 [facility] Automated lymphocyte count a s percentage of total leukocytesOrdered By: Klaudia Gonzales on 12-08-2023 Lymphocytes/100 WBC Auto (Unsp spec) 19.1 % 19-41 [facility] Basophil percentageOrdered B y: Klaudia Gonzales on 12-08-2023 Basophils/100 WBC (Bld) 0.3 % 0-1 [facility] Chloride [Moles/Vol] 104 mmol/L 98-107 [facility] Eosinophils/100 WBC (Bld) 1.7 % 0-5 [facility] Glucose [Mass/Vol] 114 mg/dL 74-106 [facility] Comment on above: Fasting Glucose resu lt from 100 to 125 mg/dL suggests IMPAIRED HOMEOSTASIS per A.D.A. criteria. Hemoglobin (Bld) [Mass/Vol] 9.7 g/dL 13.0-16.5 [facility] Monocytes/100 WBC (Bld) 15.0 % 0-10 [facility] Neutrophils (Bld) [#/Vol] 5.7 10*3/uL 2.0-7.7 [facility] Neutrophils/100 WBC (Bld) 63.1 % 47-70 [facility] Potassium [Moles/Vol] 3.7 mmol/L 3.5-5.1 [facility] Sodium [Moles/Vol] 138 mmol/L 136-145 [facility] WBC (Bld) [#/Vol] 9.1 10*3/uL 4.4-11.0 [facility] Determination of erythrocyte mean corpuscular volume (MCV)Ordered By: Klaudia Gonzales on 12-08-2023 MCV (RBC) [Entitic vol] 93.4 fL 80-94 [facility] Erythrocyte distribution wid th ratioOrdered By: Klaudia Gonzales on 12-08-2023 Erythrocyte distribution width (RBC) [Ratio] 15.2 % 11.6-14.6 [facility] Erythrocyte distribution wid th standard deviationOrdered By: Klaudia Gonzales on 12-08-2023 Erythrocyte distribution width (RBC) [Entitic vol] 52.7 fL 35.1-43.9 [facility] Hematocrit Auto (Bld) [Volum e fraction]Ordered By: Klaudia Gonzales on 12-08-2023 Hematocrit (Bld) [Volume fraction] 29.8 % 40-54 [facility] Immature granulocytes/100 WB C Auto (Bld)Ordered By: Klaudia Gonzales on 12-08-2023 Immature granulocytes/100 WBC (Bld) 0.800 % 0.0-0.9 [facility] Comment on above: IG% - Immature Granu locytes (promyelocytes, myelocytes and metamyelocytes) > 1% indicates that a LEFT SHIFT is Present. Laboratory - Chemistry and C hemistry - challengeOrdered By: Klaudia Gonzales on 12-08-2023 CO2 [Moles/Vol] 28.0 mmol/L 21.0-32.0 [facility] Urea nitrogen/Creatinine [Mass ratio] 19.2 mg/mg 10-20 [facility] Laboratory - Hematology and Cell countsOrdered By: Klaudia Gonzales on 12-08-2023 MCH (RBC) [Entitic mass] 30.4 pg 27.0-32.0 [facility] MCHC (RBC) [Mass/Vol] 32.6 g/dL 32-36 [facility] Nucleated RBC/100 WBC (Bld) [Ratio] 0 % 0-5 [facility] Platelet mean volume (Bld) [Entitic vol] 10.4 fL 6.2-12.0 [facility] Platelets (Bld) [#/Vol] 134 10*3/uL 150-450 [facility] No Panel InformationOrdered By: Klaudia Gonzales on 12-08-2023 Atypical Lymphocytes RARE % [facility] Estimated Creatinine Clearance Calc 50.84 ml/min [facility] Estimated GFR (MDRD) Amer 67 mL/min >60 [facility] Comment on above: GFR Calc Estimated GFR (MDRD) Non-Af Amer 56 mL/min >60 [facility] Comment on above: Non- GFR Calc RBC Auto (Bld) [#/Vol]Ordere d By: Klaudia Gonzales on 12-08-2023 RBC (Bld) [#/Vol] 3.19 10*6/uL 4.6-6.2 [facility] Serum or plasma calcium tay urement (mass/volume)Ordered By: Klaudia Gonzales on 12-08-2023 Calcium [Mass/Vol] 8.7 mg/dL 8.5-10.1 [facility] Serum or plasma creatinine m easurement (mass/volume)Ordered By: Klaudia Gonzales on 12-08-2023 Creatinine [Mass/Vol] 1.30 mg/dL 0.70-1.30 [facility] Comment on above: The validity of the calculated GFR & GFRAA in patients over 70 years has not been determined. Clinical correlation is essential. Serum or plasma urea nitroge n measurement (mass/volume)Ordered By: Klaudia Gonzales on 12-08-2023 Urea nitrogen [Mass/Vol] 25 mg/dL 7-18 [facility] Thin prep Papanicolaou smear with manual screeningOrdered By: Klaudia Gonzales on 12-08-2023 Thin prep Papanicolaou smear with manual screening 6 5-15 [facility] Blood manual differential co mment interpretation (narrative result)Ordered By: Klaudia Gonzales on 12-07-2023 Manual differential comment Theodore (Bld) [Interp] SCANNED [facility] Laboratory - Chemistry and C hemistry - challengeOrdered By: Vanessa Simmons on 12-07-2023 Magnesium [Mass/Vol] 2.0 mg/dL 1.6-2.6 [facility] Activated partial thrombopla stin time (aPTT) in platelet poor plasma by coagulation aOrdered By: Miguelito Laguna on 12-03-2023 aPTT Coag (PPP) [Time] 71.0 s 24.1-36.2 [facility] Review by pathologistOrdered By: Miguelito Laguna on 12-03-2023 Pathologist review Theodore (Unsp spec) [Interp] Reviewed [facility] Comment on above: Previous reported re sult: Jeri rojas Edited by: NORA on 12/06/23:1403Neutrophilic leukocytosis with left shift.Normocytic anemia.Mild Thrombocytopenia.Clinical correlation necessary.Marcelo Perez M.D. 12/06/23 AMENDED REPORT 12/06/23 1403 PATH REV previously reported as: Jeri rojas Absolute lymphocyte countOrd ered By: Antonio James on 12-02-2023 Lymphocytes Auto (Unsp spec) [#/Vol] 1.02 10*3/uL 0.83-4.51 [facility] Activated partial thrombopla stin time (aPTT) in platelet poor plasma by coagulation aOrdered By: Antonio James on 12-02-2023 aPTT Coag (PPP) [Time] 34.4 s 24.1-36.2 [facility] Assessment of wrist artery p atency prior to arterial punctureOrdered By: Antonio James on 12-02-2023 Arterial patency Wrist artery --pre arterial puncture Positive [facility] Automated lymphocyte count a s percentage of total leukocytesOrdered By: Antonio James on 12-02-2023 Lymphocytes/100 WBC Auto (Unsp spec) 11.5 % 19-41 [facility] Base excessOrdered By: Antonio James on 12-02-2023 Base excess Calc (BldV) [Moles/Vol] 1 mmol/L -2-2 [facility] Basophil percentageOrdered B y: Antonio James on 12-02-2023 Lactate [Moles/Vol] 2.3 mmol/L 0.4-2.0 [facility] Comment on above: Critical Result(s) C alled at: 18:41:24 12/02/2023 by: Ev Matthews. Results read back by same. Basophil percentage 26 mmol/L [facility] Basophils/100 WBC (Bld) 93 % 95-99 [facility] Basophil percentage 10-25 SEEN /hpf 0-5 [facility] Chloride [Moles/Vol] 100 mmol/L 98-107 [facility] Glucose [Mass/Vol] 134 mg/dL 74-106 [facility] Comment on above: Fasting Glucose resu lt greater than or equal to 126 mg/dL suggests DIABETES MELLITUS per A.D.A. criteria. Lactate [Moles/Vol] 2.1 mmol/L 0.4-2.0 [facility] Comment on above: Critical Result(s) C alled at: 14:16:35 12/02/2023 by: Lili Ricardo. Results read back by same. Potassium [Moles/Vol] 3.8 mmol/L 3.5-5.1 [facility] Sodium [Moles/Vol] 134 mmol/L 136-145 [facility] Basophils/100 WBC (Bld) 0.2 % 0-1 [facility] Eosinophils/100 WBC (Bld) 0.5 % 0-5 [facility] Hemoglobin (Bld) [Mass/Vol] 12.3 g/dL 13.0-16.5 [facility] Monocytes/100 WBC (Bld) 4.1 % 0-10 [facility] Neutrophils (Bld) [#/Vol] 7.4 10*3/uL 2.0-7.7 [facility] Neutrophils/100 WBC (Bld) 83.1 % 47-70 [facility] WBC (Bld) [#/Vol] 8.9 10*3/uL 4.4-11.0 [facility] Bilirubin Test strip Ql (U)O rdered By: Antonio James on 12-02-2023 Bilirubin Ql (U) Negative Negative [facility] Culture, urineOrdered By: Jus James on 12-02-2023 Bacteria identified Cx Nom (U) Escherichia coli [facility] Determination of erythrocyte mean corpuscular volume (MCV)Ordered By: Antonio James on 12-02-2023 MCV (RBC) [Entitic vol] 95.2 fL 80-94 [facility] Erythrocyte distribution wid th ratioOrdered By: Antonio James on 12-02-2023 Erythrocyte distribution width (RBC) [Ratio] 15.0 % 11.6-14.6 [facility] Erythrocyte distribution wid th standard deviationOrdered By: Antonio James on 12-02-2023 Erythrocyte distribution width (RBC) [Entitic vol] 52.5 fL 35.1-43.9 [facility] Hematocrit Auto (Bld) [Volum e fraction]Ordered By: Antonio James on 12-02-2023 Hematocrit (Bld) [Volume fraction] 39.3 % 40-54 [facility] Immature granulocytes/100 WB C Auto (Bld)Ordered By: Antonio James on 12-02-2023 Immature granulocytes/100 WBC (Bld) 0.600 % 0.0-0.9 [facility] Comment on above: IG% - Immature Granu locytes (promyelocytes, myelocytes and metamyelocytes) > 1% indicates that a LEFT SHIFT is Present. Ketones Test strip Ql (U)Ord ered By: Antonio James on 12-02-2023 Ketones Ql (U) Negative Negative [facility] Laboratory - Chemistry and C hemistry - challengeOrdered By: Antonio James on 12-02-2023 CO2 [Moles/Vol] 29.0 mmol/L 21.0-32.0 [facility] Urea nitrogen/Creatinine [Mass ratio] 14.2 mg/mg 10-20 [facility] Laboratory - CoagulationOrde red By: Antonio James on 12-02-2023 INR Coag (Bld) [Relative time] 1.2 {INR} [facility] PT Coag (PPP) [Time] 15.1 s 11.7-14.9 [facility] Laboratory - Hematology and Cell countsOrdered By: Antonio James on 12-02-2023 MCH (RBC) [Entitic mass] 29.8 pg 27.0-32.0 [facility] MCHC (RBC) [Mass/Vol] 31.3 g/dL 32-36 [facility] Nucleated RBC/100 WBC (Bld) [Ratio] 0 % 0-5 [facility] Platelet mean volume (Bld) [Entitic vol] 11.4 fL 6.2-12.0 [facility] Platelets (Bld) [#/Vol] 125 10*3/uL 150-450 [facility] Laboratory - Microbiology an d Antimicrobial susceptibilityOrdered By: Antonio James on 12-02-2023 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 [facility] SARS-CoV-2 (COVID-19) RNA ANA+probe Ql (Unsp spec) [facility] Measurement, pHOrdered By: Maria Del Carmen James on 12-02-2023 pH (Unsp spec) 7.48 [pH] 7.35-7.45 [facility] Mucus LM Ql (Urine sed)Order ed By: Antonio James on 12-02-2023 Mucus Ql (Urine sed) 0 SEEN /hpf [facility] Nitrite Test strip Ql (U)Ord ered By: Antonio James on 12-02-2023 Nitrite Ql (U) Negative Negative [facility] No Panel InformationOrdered By: Antonio James on 12-02-2023 Troponin I High Sensitivity 829 pg/mL 3.0-78.0 [facility] Comment on above: Critical Result(s) C alled at: 17:02:54 12/02/2023 by: Ev Zaidi to [facility]. Results read back by same. Please Note: New Test Units and Gender Specific Reference Ranges. For more information see Policy Stat Procedure [place] High Sensitivity Troponin (TNIH) and attachments. Arterial Blood Partial Pressure CO2 33.1 mmHg 35-45 [facility] Arterial Blood Partial Pressure O2 62 mmHG 75-100 [facility] Blood Gas Bicarbonate Actual 24.6 mmol/L 22-26 [facility] Blood Gas Oxygen Percent 21.0 [facility] Blood Gas Sample Site R Radial [facility] Blood Gas Specimen Type ART [facility] Blood Gas Vent Mode Not entered [facility] Oxygen Delivery Device Room Air [facility] Urine RBC 0-5 SEEN /hpf 0-5 [facility] Estimated Creatinine Clearance Calc 63.01 ml/min [facility] Estimated GFR (MDRD) Amer 85 mL/min >60 [facility] Comment on above: GFR Calc Estimated GFR (MDRD) Non-Af Amer 70 mL/min >60 [facility] Comment on above: Non- GFR Calc Protein Test strip Ql (U)Ord ered By: Antonio James on 12-02-2023 Protein Ql (U) 15 mg/dl Negative [facility] RBC Auto (Bld) [#/Vol]Ordere d By: Antonio James on 12-02-2023 RBC (Bld) [#/Vol] 4.13 10*6/uL 4.6-6.2 [facility] Serum or plasma calcium tay urement (mass/volume)Ordered By: Antonio James on 12-02-2023 Calcium [Mass/Vol] 9.6 mg/dL 8.5-10.1 [facility] Serum or plasma cardiac trop onin I panel by high sensitivity methodOrdered By: Antonio James on 12-02-2023 Tropinin I.cardiac panel High sensitivity method 912 pg/mL 3.0-78.0 [facility] Comment on above: Critical Result(s) C alled at: 14:16:35 12/02/2023 by: Lili ravi [facility]. Results read back by same. Please Note: New Test Units and Gender Specific Reference Ranges. For more information see Policy Stat Procedure [place] High Sensitivity Troponin (TNIH) and attachments. Serum or plasma creatinine m easurement (mass/volume)Ordered By: Antonio James on 12-02-2023 Creatinine [Mass/Vol] 1.06 mg/dL 0.70-1.30 [facility] Comment on above: The validity of the calculated GFR & GFRAA in patients over 70 years has not been determined. Clinical correlation is essential. Serum or plasma urea nitroge n measurement (mass/volume)Ordered By: Antonio James on 12-02-2023 Urea nitrogen [Mass/Vol] 15 mg/dL 7-18 [facility] Squamous epithelial cells de tection in urine sediment by light microscopyOrdered By: Antonio James on 12-02-2023 Epithelial cells.squamous LM Ql (Urine sed) 0 SEEN /hpf 0-5 [facility] Thin prep Papanicolaou smear with manual screeningOrdered By: Antonio James on 12-02-2023 Thin prep Papanicolaou smear with manual screening 5 5-15 [facility] Urine blood detectionOrdered By: Antonio James on 12-02-2023 RBC Ql (U) 50 /ul Negative [facility] Urine clarityOrdered By: Anastacia James on 12-02-2023 Clarity (U) Sl. Cloudy Clear [facility] Urine color determinationOrd ered By: Antonio James on 12-02-2023 Color (U) Yellow Yellow [facility] Urine glucose detectionOrder ed By: Antonio James on 12-02-2023 Glucose Ql (U) Normal mg/dl Normal [facility] Urine leukocyte esterase det ection by dipstickOrdered By: Antonio James on 12-02-2023 Leukocyte esterase Test strip Ql (U) 100 /ul Negative [facility] Urine pHOrdered By: Antonio blackburn on 12-02-2023 pH (U) 7.0 [pH] 5.0 - 8.0 [facility] Urine sediment bacteria coun t by microscopy (number/high power field)Ordered By: Antonio James on 12-02-2023 Bacteria LM.HPF (Urine sed) [#/Area] 1 /[HPF] None Seen [facility] Urine specific gravity measu rementOrdered By: Antonio James on 12-02-2023 Specific gravity (U) [Rel density] 1.010 1.002-1.030 [facility] Urine urobilinogen measureme ntOrdered By: Antonio James on 12-02-2023 Urobilinogen Ql (U) Normal mg/dl Normal [facility] Absolute lymphocyte countOrd ered By: Umm Mario on 08-15-2023 Lymphocytes Auto (Unsp spec) [#/Vol] 1.89 10*3/uL 0.83-4.51 [facility] Basophil percentageOrdered B y: Umm Mario on 08-15-2023 Basophils/100 WBC (Bld) 0.4 % 0-1 [facility] Bilirubin [Mass/Vol] 0.40 mg/dL 0.20-1.00 [facility] Comment on above: For patients on eltr ombopag therapy, use of Dimension [place] TBIL is not recommended. Chloride [Moles/Vol] 104 mmol/L 98-107 [facility] Eosinophils/100 WBC (Bld) 1.5 % 0-5 [facility] Glucose [Mass/Vol] 107 mg/dL 74-106 [facility] Comment on above: Fasting Glucose resu lt from 100 to 125 mg/dL suggests IMPAIRED HOMEOSTASIS per A.D.A. criteria. Neutrophils (Bld) [#/Vol] 4.6 10*3/uL 2.0-7.7 [facility] Neutrophils/100 WBC (Bld) 62.0 % 47-70 [facility] Potassium [Moles/Vol] 4.4 mmol/L 3.5-5.1 [facility] Protein [Mass/Vol] 7.4 g/dL 6.4-8.2 [facility] Sodium [Moles/Vol] 141 mmol/L 136-145 [facility] WBC (Bld) [#/Vol] 7.4 10*3/uL 4.4-11.0 [facility] Blood erythrocytes count (nu mber/volume)Ordered By: Umm Mario on 08-15-2023 RBC (Bld) [#/Vol] 3.96 10*6/uL 4.6-6.2 [facility] Blood hemoglobin measurement (mass/volume)Ordered By: Umm Mario on 08-15-2023 Hemoglobin (Bld) [Mass/Vol] 12.1 g/dL 13.0-16.5 [facility] Blood lymphocytes/100 leukoc ytesOrdered By: Umm Mario on 08-15-2023 Lymphocytes/100 WBC (Bld) 25.5 % 19-41 [facility] Blood monocytes/100 leukocyt esOrdered By: Umm Mario on 08-15-2023 Monocytes/100 WBC (Bld) 10.3 % 0-10 [facility] Blood platelet mean volumeOr dered By: zackeryglencoelilli Gecarissamaria del carmen on 08-15-2023 Platelet mean volume (Bld) [Entitic vol] 11.0 fL 6.2-12.0 [facility] Determination of erythrocyte mean corpuscular volume (MCV)Ordered By: zackeryglencoelilli Mario on 08-15-2023 MCV (RBC) [Entitic vol] 98.7 fL 80-94 [facility] Hematocrit Auto (Bld) [Volum e fraction]Ordered By: [facility] Joomaria del carmen on 08-15-2023 Hematocrit (Bld) [Volume fraction] 39.1 % 40-54 [facility] Laboratory - Chemistry and C hemistry - challengeOrdered By: [facility] on 08-15-2023 ALP [Catalytic activity/Vol] 80 U/L 45-117 [facility] ALT [Catalytic activity/Vol] 24 U/L 16-61 [facility] CO2 [Moles/Vol] 33.0 mmol/L 21.0-32.0 [facility] Globulin (S) [Mass/Vol] 4.4 g/dL 2.2-4.2 [facility] Urea nitrogen/Creatinine [Mass ratio] 15.1 mg/mg 10-20 [facility] Laboratory - Hematology and Cell countsOrdered By: [facility] Norwegian Streetmaria del carmen on 08-15-2023 Erythrocyte distribution width (RBC) [Entitic vol] 57.6 fL 35.1-43.9 [facility] Erythrocyte distribution width (RBC) [Ratio] 15.8 % 11.6-14.6 [facility] Immature granulocytes/100 WBC (Bld) 0.300 % 0.0-0.9 [facility] Comment on above: IG% - Immature Granu locytes (promyelocytes, myelocytes and metamyelocytes) > 1% indicates that a LEFT SHIFT is Present. MCH (RBC) [Entitic mass] 30.6 pg 27.0-32.0 [facility] Nucleated RBC/100 WBC (Bld) [Ratio] 0 % 0-5 [facility] MCHC Auto (RBC) [Mass/Vol]Or dered By: Umm Mario on 08-15-2023 MCHC (RBC) [Mass/Vol] 30.9 g/dL 32-36 [facility] No Panel InformationOrdered By: Umm Mario on 08-15-2023 Estimated GFR (MDRD) Amer 108 mL/min >60 [facility] Comment on above: GFR Calc Estimated GFR (MDRD) Non-Af Amer 90 mL/min >60 [facility] Comment on above: Non- GFR Calc Platelets bldOrdered By: Sonny Mario on 08-15-2023 Platelets (Bld) [#/Vol] 158 10*3/uL 150-450 [facility] Serum or plasma albumin tay urement (mass/volume)Ordered By: Umm Mario on 08-15-2023 Albumin [Mass/Vol] 3.0 g/dL 3.2-5.0 [facility] Serum or plasma albumin/glob ulin mass ratioOrdered By: Umm Mario on 08-15-2023 Albumin/Globulin [Mass ratio] 0.7 {ratio} 0.9-2.4 [facility] Serum or plasma calcium tay urement (mass/volume)Ordered By: Umm Mario on 08-15-2023 Calcium [Mass/Vol] 9.0 mg/dL 8.5-10.1 [facility] Serum or plasma creatinine m easurement (mass/volume)Ordered By: Umm Mario on 08-15-2023 Creatinine [Mass/Vol] 0.86 mg/dL 0.70-1.30 [facility] Comment on above: The validity of the calculated GFR & GFRAA in patients over 70 years has not been determined. Clinical correlation is essential. Serum or plasma urea nitroge n measurement (mass/volume)Ordered By: Umm Mario on 08-15-2023 Urea nitrogen [Mass/Vol] 13 mg/dL 7-18 [facility] Thin prep Papanicolaou smear with manual screeningOrdered By: Umm Mario on 08-15-2023 Thin prep Papanicolaou smear with manual screening 27 U/L 15-37 [facility] Thin prep Papanicolaou smear with manual screening 4 5-15 [facility] Influenza virus A and B and SARS-CoV-2 (COVID-19) Ag panel - Upper respiratory specimOrdered By: Marisol Crum on 04-22-2023 SARS-CoV-2 & FLU Antigen (Rapid) SARS-CoV-2 (COVID 19) [facility] Absolute lymphocyte countOrd ered By: Umm Mario on 03-23-2023 Lymphocytes Auto (Unsp spec) [#/Vol] 1.86 10*3/uL 0.83-4.51 [facility] Basophil percentageOrdered B y: Umm Mario on 03-23-2023 Basophils/100 WBC (Bld) 0.6 % 0-1 [facility] Bilirubin [Mass/Vol] 0.40 mg/dL 0.20-1.00 [facility] Comment on above: For patients on eltr ombopag therapy, use of Dimension [place] TBIL is not recommended. Eosinophils/100 WBC (Bld) 2.5 % 0-5 [facility] Neutrophils (Bld) [#/Vol] 3.6 10*3/uL 2.0-7.7 [facility] Neutrophils/100 WBC (Bld) 56.1 % 47-70 [facility] Protein [Mass/Vol] 7.5 g/dL 6.4-8.2 [facility] WBC (Bld) [#/Vol] 6.4 10*3/uL 4.4-11.0 [facility] Blood erythrocytes count (nu mber/volume)Ordered By: Umm Mario on 03-23-2023 RBC (Bld) [#/Vol] 3.82 10*6/uL 4.6-6.2 [facility] Blood hemoglobin measurement (mass/volume)Ordered By: Umm Mario on 03-23-2023 Hemoglobin (Bld) [Mass/Vol] 11.7 g/dL 13.0-16.5 [facility] Blood lymphocytes/100 leukoc ytesOrdered By: Umm Mario on 03-23-2023 Lymphocytes/100 WBC (Bld) 29.1 % 19-41 [facility] Blood monocytes/100 leukocyt esOrdered By: Umm Mario on 03-23-2023 Monocytes/100 WBC (Bld) 11.4 % 0-10 [facility] Blood platelet mean volumeOr dered By: Umm Mario on 03-23-2023 Platelet mean volume (Bld) [Entitic vol] 11.5 fL 6.2-12.0 [facility] Determination of erythrocyte mean corpuscular volume (MCV)Ordered By: Umm Mario on 03-23-2023 MCV (RBC) [Entitic vol] 98.7 fL 80-94 [facility] Direct bilirubinOrdered By: Umm Mario on 03-23-2023 Bilirubin.direct [Mass/Vol] 0.13 mg/dL 0.00-0.30 [facility] Hematocrit Auto (Bld) [Volum e fraction]Ordered By: Arlethglencoelilli Mario on 03-23-2023 Hematocrit (Bld) [Volume fraction] 37.7 % 40-54 [facility] INR in Blood by Coagulation assayOrdered By: Umm Mario on 03-23-2023 INR Coag (Bld) [Relative time] 1.1 {INR} [facility] Laboratory - Chemistry and C hemistry - challengeOrdered By: Umm Mario on 03-23-2023 ALP [Catalytic activity/Vol] 85 U/L 45-117 [facility] ALT [Catalytic activity/Vol] 21 U/L 16-61 [facility] Cobalamin (Vitamin B12) [Mass/Vol] 623 pg/mL 211-911 [facility] Globulin (S) [Mass/Vol] 4.4 g/dL 2.2-4.2 [facility] Laboratory - CoagulationOrde red By: Umm Mario on 03-23-2023 aPTT Coag (Bld) [Time] 33.5 s 24.1-36.2 [facility] PT Coag (PPP) [Time] 14.5 s 11.7-14.9 [facility] Laboratory - Hematology and Cell countsOrdered By: Umm Mario on 03-23-2023 Erythrocyte distribution width (RBC) [Entitic vol] 54.5 fL 35.1-43.9 [facility] Erythrocyte distribution width (RBC) [Ratio] 15.0 % 11.6-14.6 [facility] Immature granulocytes/100 WBC (Bld) 0.300 % 0.0-0.9 [facility] Comment on above: IG% - Immature Granu locytes (promyelocytes, myelocytes and metamyelocytes) > 1% indicates that a LEFT SHIFT is Present. MCH (RBC) [Entitic mass] 30.6 pg 27.0-32.0 [facility] Nucleated RBC/100 WBC (Bld) [Ratio] 0 % 0-5 [facility] MCHC Auto (RBC) [Mass/Vol]Or dered By: Umm Mario on 03-23-2023 MCHC (RBC) [Mass/Vol] 31.0 g/dL 32-36 [facility] Platelets bldOrdered By: Sonny Mario on 03-23-2023 Platelets (Bld) [#/Vol] 148 10*3/uL 150-450 [facility] Serum or plasma albumin tay urement (mass/volume)Ordered By: Umm Mario on 03-23-2023 Albumin [Mass/Vol] 3.1 g/dL 3.2-5.0 [facility] Thin prep Papanicolaou smear with manual screeningOrdered By: Umm Mario on 03-23-2023 Thin prep Papanicolaou smear with manual screening 31 U/L 15-37 [facility] Absolute lymphocyte countOrd ered By: Dr. Ferrera on 03-12-2023 Lymphocytes Auto (Unsp spec) [#/Vol] 2.23 10*3/uL 0.83-4.51 [facility] Basophil percentageOrdered B y: Dr. Ferrera on 03-12-2023 Basophils/100 WBC (Bld) 0.6 % 0-1 [facility] Chloride [Moles/Vol] 104 mmol/L 98-107 [facility] Eosinophils/100 WBC (Bld) 3.2 % 0-5 [facility] Glucose [Mass/Vol] 88 mg/dL 74-106 [facility] Neutrophils (Bld) [#/Vol] 3.6 10*3/uL 2.0-7.7 [facility] Neutrophils/100 WBC (Bld) 51.9 % 47-70 [facility] Potassium [Moles/Vol] 4.1 mmol/L 3.5-5.1 [facility] Sodium [Moles/Vol] 137 mmol/L 136-145 [facility] WBC (Bld) [#/Vol] 6.9 10*3/uL 4.4-11.0 [facility] Blood erythrocytes count (nu mber/volume)Ordered By: Dr. Ferrera on 03-12-2023 RBC (Bld) [#/Vol] 3.86 10*6/uL 4.6-6.2 [facility] Blood hemoglobin measurement (mass/volume)Ordered By: Dr. Ferrera on 03-12-2023 Hemoglobin (Bld) [Mass/Vol] 11.9 g/dL 13.0-16.5 [facility] Blood lymphocytes/100 leukoc ytesOrdered By: Dr. Ferrera on 03-12-2023 Lymphocytes/100 WBC (Bld) 32.4 % 19-41 [facility] Blood monocytes/100 leukocyt esOrdered By: Dr. Ferrera on 03-12-2023 Monocytes/100 WBC (Bld) 11.6 % 0-10 [facility] Blood platelet mean volumeOr dered By: Dr. Ferrera on 03-12-2023 Platelet mean volume (Bld) [Entitic vol] 11.0 fL 6.2-12.0 [facility] Determination of erythrocyte mean corpuscular volume (MCV)Ordered By: Dr. Ferrera on 03-12-2023 MCV (RBC) [Entitic vol] 97.4 fL 80-94 [facility] Hematocrit Auto (Bld) [Volum e fraction]Ordered By: Dr. Ferrera on 03-12-2023 Hematocrit (Bld) [Volume fraction] 37.6 % 40-54 [facility] Laboratory - Chemistry and C hemistry - challengeOrdered By: Dr. Ferrera on 03-12-2023 CO2 [Moles/Vol] 30.0 mmol/L 21.0-32.0 [facility] Urea nitrogen/Creatinine [Mass ratio] 21.5 mg/mg 10-20 [facility] Laboratory - Hematology and Cell countsOrdered By: Dr. Ferrera on 03-12-2023 Erythrocyte distribution width (RBC) [Entitic vol] 54.1 fL 35.1-43.9 [facility] Erythrocyte distribution width (RBC) [Ratio] 15.1 % 11.6-14.6 [facility] Immature granulocytes/100 WBC (Bld) 0.300 % 0.0-0.9 [facility] Comment on above: IG% - Immature Granu locytes (promyelocytes, myelocytes and metamyelocytes) > 1% indicates that a LEFT SHIFT is Present. MCH (RBC) [Entitic mass] 30.8 pg 27.0-32.0 [facility] Nucleated RBC/100 WBC (Bld) [Ratio] 0 % 0-5 [facility] MCHC Auto (RBC) [Mass/Vol]Or dered By: Dr. Ferrera on 03-12-2023 MCHC (RBC) [Mass/Vol] 31.6 g/dL 32-36 [facility] No Panel InformationOrdered By: Dr. Ferrera on 03-12-2023 Troponin I High Sensitivity 407 pg/mL 3.0-78.0 [facility] Comment on above: Critical Result(s) C alled at: 14:27:56 03/12/2023 by: Lili Dailey. Results read back by same. Please Note: New Test Units and Gender Specific Reference Ranges. For more information see Policy Stat Procedure [place] High Sensitivity Troponin (TNIH) and attachments. Estimated Creatinine Clearance Calc 58.20 ml/min [facility] Estimated GFR (MDRD) Amer 138 mL/min >60 [facility] Comment on above: GFR Calc Estimated GFR (MDRD) Non-Af Amer 114 mL/min >60 [facility] Comment on above: Non- GFR Calc Platelets bldOrdered By: Dr. Ferrera on 03-12-2023 Platelets (Bld) [#/Vol] 141 10*3/uL 150-450 [facility] Serum or plasma calcium tay urement (mass/volume)Ordered By: Dr. Ferrera on 03-12-2023 Calcium [Mass/Vol] 9.6 mg/dL 8.5-10.1 [facility] Serum or plasma creatinine m easurement (mass/volume)Ordered By: Dr. Ferrera on 03-12-2023 Creatinine [Mass/Vol] 0.70 mg/dL 0.70-1.30 [facility] Comment on above: The validity of the calculated GFR & GFRAA in patients over 70 years has not been determined. Clinical correlation is essential. Serum or plasma urea nitroge n measurement (mass/volume)Ordered By: Dr. Ferrera on 03-12-2023 Urea nitrogen [Mass/Vol] 15 mg/dL 7-18 [facility] Thin prep Papanicolaou smear with manual screeningOrdered By: Dr. Ferrera on 03-12-2023 Thin prep Papanicolaou smear with manual screening 3 5-15 [facility] Stool gastrointestinal hemog lobin detection by immunologic methodOrdered By: Dr. Mario on 09-08-2022 Lower GI hemoglobin IA Ql (Stl) [facility] Absolute lymphocyte countOrd ered By: Dr. Mario on 09-04-2022 Lymphocytes Auto (Unsp spec) [#/Vol] 1.91 10*3/uL 0.83-4.51 [facility] Basophil percentageOrdered B y: Dr. Mario on 09-04-2022 Basophils/100 WBC (Bld) 0.5 % 0-1 [facility] Eosinophils/100 WBC (Bld) 3.3 % 0-5 [facility] Neutrophils (Bld) [#/Vol] 3.1 10*3/uL 2.0-7.7 [facility] Neutrophils/100 WBC (Bld) 52.2 % 47-70 [facility] WBC (Bld) [#/Vol] 6.0 10*3/uL 4.4-11.0 [facility] Blood erythrocytes count (nu mber/volume)Ordered By: Dr. Mario on 09-04-2022 RBC (Bld) [#/Vol] 4.08 10*6/uL 4.6-6.2 [facility] Blood hemoglobin measurement (mass/volume)Ordered By: Dr. Mario on 09-04-2022 Hemoglobin (Bld) [Mass/Vol] 12.5 g/dL 13.0-16.5 [facility] Blood lymphocytes/100 leukoc ytesOrdered By: Dr. Mario on 09-04-2022 Lymphocytes/100 WBC (Bld) 31.9 % 19-41 [facility] Blood monocytes/100 leukocyt esOrdered By: Dr. Mario on 09-04-2022 Monocytes/100 WBC (Bld) 11.9 % 0-10 [facility] Blood platelet mean volumeOr dered By: Dr. Mario on 09-04-2022 Platelet mean volume (Bld) [Entitic vol] 11.1 fL 6.2-12.0 [facility] Determination of erythrocyte mean corpuscular volume (MCV)Ordered By: Dr. Mario on 09-04-2022 MCV (RBC) [Entitic vol] 99.8 fL 80-94 [facility] Hematocrit Auto (Bld) [Volum e fraction]Ordered By: Dr. Mario on 09-04-2022 Hematocrit (Bld) [Volume fraction] 40.7 % 40-54 [facility] Laboratory - Hematology and Cell countsOrdered By: Dr. Mario on 09-04-2022 Erythrocyte distribution width (RBC) [Entitic vol] 52.1 fL 35.1-43.9 [facility] Erythrocyte distribution width (RBC) [Ratio] 14.2 % 11.6-14.6 [facility] Immature granulocytes/100 WBC (Bld) 0.200 % 0.0-0.9 [facility] Comment on above: IG% - Immature Granu locytes (promyelocytes, myelocytes and metamyelocytes) > 1% indicates that a LEFT SHIFT is Present. MCH (RBC) [Entitic mass] 30.6 pg 27.0-32.0 [facility] Nucleated RBC/100 WBC (Bld) [Ratio] 0 % 0-5 [facility] MCHC Auto (RBC) [Mass/Vol]Or dered By: Dr. Mario on 09-04-2022 MCHC (RBC) [Mass/Vol] 30.7 g/dL 32-36 [facility] Platelets bldOrdered By: Dr. Mario on 09-04-2022 Platelets (Bld) [#/Vol] 146 10*3/uL 150-450 [facility] Serum or plasma folate measu rement (mass/volume)Ordered By: Dr. Mario on 09-04-2022 Folate [Mass/Vol] 77.60 ng/mL 3.1-55.4 [facility] Absolute lymphocyte countOrd ered By: Dr. Peña on 08-24-2022 Lymphocytes Auto (Unsp spec) [#/Vol] 1.66 10*3/uL 0.83-4.51 [facility] Basophil percentageOrdered B y: Dr. Peña on 08-24-2022 Basophils/100 WBC (Bld) 0.3 % 0-1 [facility] Chloride [Moles/Vol] 107 mmol/L 98-107 [facility] Eosinophils/100 WBC (Bld) 3.8 % 0-5 [facility] Glucose [Mass/Vol] 103 mg/dL 74-106 [facility] Comment on above: Fasting Glucose resu lt from 100 to 125 mg/dL suggests IMPAIRED HOMEOSTASIS per A.D.A. criteria. Neutrophils (Bld) [#/Vol] 3.3 10*3/uL 2.0-7.7 [facility] Neutrophils/100 WBC (Bld) 54.8 % 47-70 [facility] Potassium [Moles/Vol] 4.0 mmol/L 3.5-5.1 [facility] Sodium [Moles/Vol] 140 mmol/L 136-145 [facility] WBC (Bld) [#/Vol] 6.0 10*3/uL 4.4-11.0 [facility] Blood erythrocytes count (nu mber/volume)Ordered By: Dr. Peña on 08-24-2022 RBC (Bld) [#/Vol] 4.00 10*6/uL 4.6-6.2 [facility] Blood hemoglobin measurement (mass/volume)Ordered By: Dr. Peña on 08-24-2022 Hemoglobin (Bld) [Mass/Vol] 12.5 g/dL 13.0-16.5 [facility] Blood lymphocytes/100 leukoc ytesOrdered By: Dr. Peña on 08-24-2022 Lymphocytes/100 WBC (Bld) 27.5 % 19-41 [facility] Blood monocytes/100 leukocyt esOrdered By: Dr. Peña on 08-24-2022 Monocytes/100 WBC (Bld) 13.4 % 0-10 [facility] Blood platelet mean volumeOr dered By: Dr. Peña on 08-24-2022 Platelet mean volume (Bld) [Entitic vol] 10.4 fL 6.2-12.0 [facility] Determination of erythrocyte mean corpuscular volume (MCV)Ordered By: Dr. Peña on 08-24-2022 MCV (RBC) [Entitic vol] 97.8 fL 80-94 [facility] Hematocrit Auto (Bld) [Volum e fraction]Ordered By: Dr. Peña on 08-24-2022 Hematocrit (Bld) [Volume fraction] 39.1 % 40-54 [facility] INR in Blood by Coagulation assayOrdered By: Dr. Peña on 08-24-2022 INR Coag (Bld) [Relative time] 1.1 {INR} [facility] Laboratory - Chemistry and C hemistry - challengeOrdered By: Dr. Peña on 08-24-2022 CO2 [Moles/Vol] 31.0 mmol/L 21.0-32.0 [facility] Urea nitrogen/Creatinine [Mass ratio] 21.3 mg/mg 10-20 [facility] Laboratory - CoagulationOrde red By: Dr. Peña on 08-24-2022 aPTT Coag (Bld) [Time] 31.1 s 24.1-36.2 [facility] PT Coag (PPP) [Time] 14.0 s 11.7-14.9 [facility] Laboratory - Hematology and Cell countsOrdered By: Dr. Peña on 08-24-2022 Erythrocyte distribution width (RBC) [Entitic vol] 51.5 fL 35.1-43.9 [facility] Erythrocyte distribution width (RBC) [Ratio] 14.2 % 11.6-14.6 [facility] Immature granulocytes/100 WBC (Bld) 0.200 % 0.0-0.9 [facility] Comment on above: IG% - Immature Granu locytes (promyelocytes, myelocytes and metamyelocytes) > 1% indicates that a LEFT SHIFT is Present. MCH (RBC) [Entitic mass] 31.3 pg 27.0-32.0 [facility] Nucleated RBC/100 WBC (Bld) [Ratio] 0 % 0-5 [facility] MCHC Auto (RBC) [Mass/Vol]Or dered By: Dr. Peña on 08-24-2022 MCHC (RBC) [Mass/Vol] 32.0 g/dL 32-36 [facility] No Panel InformationOrdered By: Dr. Peña on 08-24-2022 Estimated Creatinine Clearance Calc 59.28 ml/min [facility] Estimated GFR (MDRD) Amer 137 mL/min >60 [facility] Comment on above: GFR Calc Estimated GFR (MDRD) Non-Af Amer 113 mL/min >60 [facility] Comment on above: Non- GFR Calc Platelets bldOrdered By: Dr. Peña on 08-24-2022 Platelets (Bld) [#/Vol] 115 10*3/uL 150-450 [facility] Serum or plasma calcium tay urement (mass/volume)Ordered By: Dr. Peña on 08-24-2022 Calcium [Mass/Vol] 9.2 mg/dL 8.5-10.1 [facility] Serum or plasma creatinine m easurement (mass/volume)Ordered By: Dr. Peña on 08-24-2022 Creatinine [Mass/Vol] 0.70 mg/dL 0.70-1.30 [facility] Comment on above: The validity of the calculated GFR & GFRAA in patients over 70 years has not been determined. Clinical correlation is essential. Serum or plasma urea nitroge n measurement (mass/volume)Ordered By: Dr. Peña on 08-24-2022 Urea nitrogen [Mass/Vol] 15 mg/dL 7-18 [facility] Thin prep Papanicolaou smear with manual screeningOrdered By: Dr. Peña on 08-24-2022 Thin prep Papanicolaou smear with manual screening 2 5-15 [facility] Absolute lymphocyte countOrd ered By: Dr. Mario on 08-04-2022 Lymphocytes Auto (Unsp spec) [#/Vol] 2.10 10*3/uL 0.83-4.51 [facility] Basophil percentageOrdered B y: Dr. Mario on 08-04-2022 Basophils/100 WBC (Bld) 0.6 % 0-1 [facility] Bilirubin [Mass/Vol] 0.40 mg/dL 0.20-1.00 [facility] Comment on above: For patients on eltr ombopag therapy, use of Dimension [place] TBIL is not recommended. Chloride [Moles/Vol] 104 mmol/L 98-107 [facility] Cholesterol [Mass/Vol] 116 mg/dL <200 [facility] Comment on above: <200 mg/dL Desirable 200-240 mg/dL Borderline >240 mg/dL High Risk Eosinophils/100 WBC (Bld) 3.6 % 0-5 [facility] Glucose [Mass/Vol] 89 mg/dL 74-106 [facility] Neutrophils (Bld) [#/Vol] 3.8 10*3/uL 2.0-7.7 [facility] Neutrophils/100 WBC (Bld) 54.5 % 47-70 [facility] Potassium [Moles/Vol] 4.5 mmol/L 3.5-5.1 [facility] Comment on above: Moderate Hemolysis, Result may be falsely increased. Protein [Mass/Vol] 7.4 g/dL 6.4-8.2 [facility] Sodium [Moles/Vol] 139 mmol/L 136-145 [facility] Triglyceride [Mass/Vol] 106 mg/dL <199 [facility] Comment on above: The drugs N-Acetylcy steine and Metamizole may falsely depress this assay.Serum Triglycerides Reference Interval Normal <150 mg/dL Borderline high 150 - 199 mg/dL High 200 - 499 mg/dL Very High > or = 500 mg/dL WBC (Bld) [#/Vol] 6.9 10*3/uL 4.4-11.0 [facility] Blood erythrocytes count (nu mber/volume)Ordered By: Dr. Mario on 08-04-2022 RBC (Bld) [#/Vol] 4.09 10*6/uL 4.6-6.2 [facility] Blood hemoglobin measurement (mass/volume)Ordered By: Dr. Mario on 08-04-2022 Hemoglobin (Bld) [Mass/Vol] 12.8 g/dL 13.0-16.5 [facility] Blood lymphocytes/100 leukoc ytesOrdered By: Dr. Mario on 08-04-2022 Lymphocytes/100 WBC (Bld) 30.3 % 19-41 [facility] Blood monocytes/100 leukocyt esOrdered By: Dr. Mario on 08-04-2022 Monocytes/100 WBC (Bld) 10.7 % 0-10 [facility] Blood platelet mean volumeOr dered By: Dr. Mario on 08-04-2022 Platelet mean volume (Bld) [Entitic vol] 11.4 fL 6.2-12.0 [facility] Determination of erythrocyte mean corpuscular volume (MCV)Ordered By: Dr. Mario on 08-04-2022 MCV (RBC) [Entitic vol] 100.0 fL 80-94 [facility] Hematocrit Auto (Bld) [Volum e fraction]Ordered By: Dr. Mario on 08-04-2022 Hematocrit (Bld) [Volume fraction] 40.9 % 40-54 [facility] Laboratory - Chemistry and C hemistry - challengeOrdered By: Dr. Mario on 08-04-2022 ALP [Catalytic activity/Vol] 73 U/L 45-117 [facility] ALT [Catalytic activity/Vol] 25 U/L 16-61 [facility] CO2 [Moles/Vol] 32.0 mmol/L 21.0-32.0 [facility] Globulin (S) [Mass/Vol] 4.3 g/dL 2.2-4.2 [facility] Urea nitrogen/Creatinine [Mass ratio] 18.2 mg/mg 10-20 [facility] Laboratory - Hematology and Cell countsOrdered By: Dr. Mario on 08-04-2022 Erythrocyte distribution width (RBC) [Entitic vol] 52.4 fL 35.1-43.9 [facility] Erythrocyte distribution width (RBC) [Ratio] 14.2 % 11.6-14.6 [facility] Immature granulocytes/100 WBC (Bld) 0.300 % 0.0-0.9 [facility] Comment on above: IG% - Immature Granu locytes (promyelocytes, myelocytes and metamyelocytes) > 1% indicates that a LEFT SHIFT is Present. MCH (RBC) [Entitic mass] 31.3 pg 27.0-32.0 [facility] Nucleated RBC/100 WBC (Bld) [Ratio] 0 % 0-5 [facility] MCHC Auto (RBC) [Mass/Vol]Or dered By: Dr. Mario on 08-04-2022 MCHC (RBC) [Mass/Vol] 31.3 g/dL 32-36 [facility] No Panel InformationOrdered By: Dr. Mario on 08-04-2022 Estimated GFR (MDRD) Amer 123 mL/min >60 [facility] Comment on above: GFR Calc Estimated GFR (MDRD) Non-Af Amer 102 mL/min >60 [facility] Comment on above: Non- GFR Calc Platelets bldOrdered By: Dr. Mario on 08-04-2022 Platelets (Bld) [#/Vol] 135 10*3/uL 150-450 [facility] Serum or plasma albumin tay urement (mass/volume)Ordered By: Dr. Mario on 08-04-2022 Albumin [Mass/Vol] 3.1 g/dL 3.2-5.0 [facility] Serum or plasma albumin/glob ulin mass ratioOrdered By: Dr. Mario on 08-04-2022 Albumin/Globulin [Mass ratio] 0.7 {ratio} 0.9-2.4 [facility] Serum or plasma calcium tay urement (mass/volume)Ordered By: Dr. Mario on 08-04-2022 Calcium [Mass/Vol] 8.9 mg/dL 8.5-10.1 [facility] Serum or plasma cholesterol in HDL measurement (mass/volume)Ordered By: Dr. Mario on 08-04-2022 Cholesterol in HDL [Mass/Vol] 50 mg/dL >40 [facility] Comment on above: The drugs N-Acetylcy steine and Metamizole may falsely depress this assay. Reference Range HDL <40 mg/dL Low HDL Cholesterol HDL >or= 60 mg/dL High HDL Cholesterol Serum or plasma cholesterol in VLDL measurement (mass/volume)Ordered By: Dr. Mario on 08-04-2022 Cholesterol in VLDL [Mass/Vol] 21 mg/dL 5-40 [facility] Serum or plasma creatinine m easurement (mass/volume)Ordered By: Dr. Mario on 08-04-2022 Creatinine [Mass/Vol] 0.77 mg/dL 0.70-1.30 [facility] Comment on above: The validity of the calculated GFR & GFRAA in patients over 70 years has not been determined. Clinical correlation is essential. Serum or plasma low density lipoprotein (LDL) cholesterol measurement (mass/volume)Ordered By: Dr. Mario on 08-04-2022 Cholesterol in LDL [Mass/Vol] 45 mg/dL 0-130 [facility] Serum or plasma urea nitroge n measurement (mass/volume)Ordered By: Dr. Mario on 08-04-2022 Urea nitrogen [Mass/Vol] 14 mg/dL 7-18 [facility] Thin prep Papanicolaou smear with manual screeningOrdered By: Dr. Mario on 08-04-2022 Thin prep Papanicolaou smear with manual screening 33 U/L 15-37 [facility] Comment on above: Moderate Hemolysis, Result may be falsely increased. Thin prep Papanicolaou smear with manual screening 3 5-15 [facility] Absolute lymphocyte counton 12-03-2021 Lymphocytes Auto (Unsp spec) [#/Vol] 2.18 10*3/uL 0.83-4.51 [facility] Work Phone: Basophil percentageon 2021 Basophils/100 WBC (Bld) 0.4 % 0-1 [facility] Work Phone: [phone] Chloride [Moles/Vol] 104 mmol/L 98-107 [facility] Work Phone: [phone] Eosinophils/100 WBC (Bld) 0.9 % 0-5 [facility] Work Phone: Glucose [Mass/Vol] 100 mg/dL 74-106 [facility] Work Phone: [phone] Comment on above: Fasting Glucose resu lt from 100 to 125 mg/dL suggests IMPAIRED HOMEOSTASIS per A.D.A. criteria. Neutrophils (Bld) [#/Vol] 5.7 10*3/uL 2.0-7.7 [facility] Work Phone: Neutrophils/100 WBC (Bld) 63.0 % 47-70 [facility] Work Phone: Potassium [Moles/Vol] 4.6 mmol/L 3.5-5.1 [facility] Work Phone: Sodium [Moles/Vol] 139 mmol/L 136-145 [facility] Work Phone: WBC (Bld) [#/Vol] 9.0 10*3/uL 4.4-11.0 [facility] Work Phone: Blood erythrocytes count (nu mber/volume)on 12-03-2021 RBC (Bld) [#/Vol] 4.62 10*6/uL 4.6-6.2 [facility] Work Phone: Blood hemoglobin measurement (mass/volume)on 12-03-2021 Hemoglobin (Bld) [Mass/Vol] 14.7 g/dL 13.0-16.5 [facility] Work Phone: Blood lymphocytes/100 leukoc yteson 12-03-2021 Lymphocytes/100 WBC (Bld) 24.2 % 19-41 [facility] Work Phone: Blood monocytes/100 leukocyt eson 12-03-2021 Monocytes/100 WBC (Bld) 11.1 % 0-10 [facility] Work Phone: Blood platelet mean volumeon 12-03-2021 Platelet mean volume (Bld) [Entitic vol] 11.0 fL 6.2-12.0 [facility] Work Phone: Determination of erythrocyte mean corpuscular volume (MCV)on 12-03-2021 MCV (RBC) [Entitic vol] 96.3 fL 80-94 [facility] Work Phone: Hematocrit Auto (Bld) [Volum e fraction]on 12-03-2021 Hematocrit (Bld) [Volume fraction] 44.5 % 40-54 [facility] Work Phone: Laboratory - Chemistry and C hemistry - challengeon 12-03-2021 CO2 [Moles/Vol] 33.0 mmol/L 21.0-32.0 [facility] Work Phone: Magnesium [Mass/Vol] 2.4 mg/dL 1.6-2.6 [facility] Work Phone: Urea nitrogen/Creatinine [Mass ratio] 21.2 mg/mg 10-20 [facility] Work Phone: Laboratory - Hematology and Cell countson 12-03-2021 Erythrocyte distribution width (RBC) [Entitic vol] 49.6 fL 35.1-43.9 [facility] Work Phone: Erythrocyte distribution width (RBC) [Ratio] 14.1 % 11.6-14.6 [facility] Work Phone: Immature granulocytes/100 WBC (Bld) 0.400 % 0.0-0.9 [facility] Work Phone: Comment on above: IG% - Immature Granu locytes (promyelocytes, myelocytes and metamyelocytes) > 1% indicates that a LEFT SHIFT is Present. MCH (RBC) [Entitic mass] 31.8 pg 27.0-32.0 [facility] Work Phone: Nucleated RBC/100 WBC (Bld) [Ratio] 0 % 0-5 [facility] Work Phone: MCHC Auto (RBC) [Mass/Vol]on 12-03-2021 MCHC (RBC) [Mass/Vol] 33.0 g/dL 32-36 [facility] Work Phone: No Panel Informationon 12-03 Estimated GFR (MDRD) Amer 92 mL/min >60 [facility] Work Phone: Comment on above: GFR Calc Estimated GFR (MDRD) Non-Af Amer 76 mL/min >60 [facility] Work Phone: Comment on above: Non- GFR Calc Thyroid Stimulating Hormone (TSH) 2.10 uIU/mL 0.358-3.74 [facility] Work Phone: Platelets bldon 12-03-2021 Platelets (Bld) [#/Vol] 168 10*3/uL 150-450 [facility] Work Phone: Serum or plasma calcium tay urement (mass/volume)on 12-03-2021 Calcium [Mass/Vol] 9.4 mg/dL 8.5-10.1 [facility] Work Phone: Serum or plasma creatinine m easurement (mass/volume)on 12-03-2021 Creatinine [Mass/Vol] 0.99 mg/dL 0.70-1.30 [facility] ster [facility] Work Phone: Comment on above: The validity of the calculated GFR & GFRAA in patients over 70 years has not been determined. Clinical correlation is essential. Serum or plasma urea nitroge n measurement (mass/volume)on 12-03-2021 Urea nitrogen [Mass/Vol] 21 mg/dL 7-18 [facility] Work Phone: Thin prep Papanicolaou smear with manual screeningon 12-03-2021 Thin prep Papanicolaou smear with manual screening 2 5-15 [facility] Work Phone: No Panel Information [facility] Stool gastrointestinal hemog lobin detection by immunologic method Lower GI hemoglobin IA Ql (Stl) [facility] Work Phone: Vital Signs Date Time Vital Sign Value Performing Clinician Jake contreras 07-05-2025 07:03-0400 Body height 182.[address] Umm Mario MD Work Phone: [facility] 07-05-2025 07:03-0400 Body mass index (BMI) [Ratio] 29.7 kg/m2 Dr. Umm Mario MD Work Phone: [facility] 07-05-2025 07:03-0400 Body weight 99.[address] Umm Mario MD Work Phone: [facility] 07-05-2025 07:03-0400 Diastolic blood pressure 81 mm[Hg] Dr. Umm Mario MD Work Phone: [facility] 07-05-2025 07:03-0400 Heart rate 59 /min Dr. Umm Mario MD Work Phone: [facility] 07-05-2025 07:03-0400 Respiratory rate 18 /min Dr. Umm Mario MD Work Phone: [facility] 07-05-2025 07:03-0400 SaO2% (BldA) [Mass fraction] 99 % Dr. Umm Mario MD Work Phone: [facility] 07-05-2025 07:03-0400 Systolic blood pressure 141 mm[Hg] Dr. Umm Mario MD Work Phone: [facility] 07-02-2025 14:02-0400 Body mass index (BMI) [Ratio] 29.8 kg/m2 Dr. Umm Mario MD Work Phone: [facility] 07-02-2025 14:02-0400 Body weight 99.[address] Umm Mario MD Work Phone: [facility] 07-02-2025 14:02-0400 Diastolic blood pressure 78 mm[Hg] Dr. Umm Mario MD Work Phone: [facility] 07-02-2025 14:02-0400 Heart rate 58 /min Dr. Umm Mario MD Work Phone: [facility] 07-02-2025 14:02-0400 SaO2% (BldA) [Mass fraction] 96 % Dr. Umm Mario MD Work Phone: [facility] 07-02-2025 14:02-0400 Systolic blood pressure 165 mm[Hg] Dr. Umm Mario MD Work Phone: [facility] 06-24-2025 14:50-0400 Body height 182.[address] Umm Mario MD Work Phone: [facility] 06-24-2025 14:50-0400 Body mass index (BMI) [Ratio] 29.8 kg/m2 Dr. Umm Mario MD Work Phone: [facility] 06-24-2025 14:50-0400 Body weight 99.[address] Umm Mario MD Work Phone: [facility] 06-24-2025 14:50-0400 Diastolic blood pressure 77 mm[Hg] Dr. Umm Mario MD Work Phone: [facility] 06-24-2025 14:50-0400 Heart rate 61 /min Dr. Umm Mario MD Work Phone: [facility] 06-24-2025 14:50-0400 SaO2% (BldA) [Mass fraction] 97 % Dr. Umm Mario MD Work Phone: [facility] 06-24-2025 14:50-0400 Systolic blood pressure 160 mm[Hg] Dr. Umm Mario MD Work Phone: [facility] 06-17-2025 08:36-0400 Body mass index (BMI) [Ratio] 29.7 kg/m2 Dr. Umm Mario MD Work Phone: [facility] 06-17-2025 08:36-0400 Body temperature 97.4 [degF] Dr. Umm Mario MD Work Phone: [facility] 06-17-2025 08:36-0400 Body weight 99.[address] Umm Mario MD Work Phone: [facility] 06-17-2025 08:36-0400 Diastolic blood pressure 75 mm[Hg] Dr. Umm Mario MD Work Phone: [facility] 06-17-2025 08:36-0400 Heart rate 56 /min Dr. Umm Mario MD Work Phone: [facility] 06-17-2025 08:36-0400 Respiratory rate 18 /min Dr. Umm Mario MD Work Phone: [facility] 06-17-2025 08:36-0400 SaO2% (BldA) [Mass fraction] 99 % Dr. Umm Mario MD Work Phone: [facility] 06-17-2025 08:36-0400 Systolic blood pressure 156 mm[Hg] Dr. Umm Mario MD Work Phone: [facility] 06-07-2025 15:25-0400 Body height 182.[address] Umm Mario MD Work Phone: [facility] 06-07-2025 15:25-0400 Body mass index (BMI) [Ratio] 30.9 kg/m2 Dr. Umm Mario MD Work Phone: [facility] 06-07-2025 15:25-0400 Body temperature 97.9 [degF] Dr. Umm Mario MD Work Phone: [facility] 06-07-2025 15:25-0400 Body weight 103.[address] Umm Mario MD Work Phone: [facility] 06-07-2025 15:25-0400 Diastolic blood pressure 64 mm[Hg] Dr. Umm Mario MD Work Phone: [facility] 06-07-2025 15:25-0400 Heart rate 67 /min Dr. Umm Mario MD Work Phone: [facility] 06-07-2025 15:25-0400 Respiratory rate 16 /min Dr. Umm Mario MD Work Phone: [facility] 06-07-2025 15:25-0400 SaO2% (BldA) [Mass fraction] 99 % Dr. Umm Mario MD Work Phone: [facility] 06-07-2025 15:25-0400 Systolic blood pressure 148 mm[Hg] Dr. Umm Mario MD Work Phone: [facility] 05-20-2025 15:47-0400 Body temperature 97.8 [degF] Dr. Umm Mario MD Work Phone: [facility] 05-20-2025 15:47-0400 Diastolic blood pressure 74 mm[Hg] Dr. Umm Mario MD Work Phone: [facility] 05-20-2025 15:47-0400 Heart rate 87 /min Dr. Umm Mario MD Work Phone: [facility] 05-20-2025 15:47-0400 Respiratory rate 16 /min Dr. Umm Mario MD Work Phone: [facility] 05-20-2025 15:47-0400 SaO2% (BldA) [Mass fraction] 100 % Dr. Umm Mario MD Work Phone: [facility] 05-20-2025 15:47-0400 Systolic blood pressure 127 mm[Hg] Dr. Umm Mario MD Work Phone: [facility] 05-20-2025 13:34-0400 Body height 182.[address] Umm Mario MD Work Phone: [facility] 05-20-2025 13:34-0400 Body mass index (BMI) [Ratio] 29.6 kg/m2 Dr. Umm Mario MD Work Phone: [facility] 05-20-2025 13:34-0400 Body weight [address] Umm Mario MD Work Phone: [facility] 05-14-2025 14:16-0400 Body mass index (BMI) [Ratio] 30.35 kg/m2 Corina Nguyen MD Work Phone: [facility] 05-14-2025 14:16-0400 Body weight 101.52 kg Corina Nguyen MD Work Phone: [facility] 05-14-2025 14:16-0400 Diastolic blood pressure 84 mm[Hg] Corina Nguyen MD Work Phone: [facility] 05-14-2025 14:16-0400 Heart rate 52 /min Corina Nguyen MD Work Phone: [facility] 05-14-2025 14:16-0400 SaO2% (BldA) [Mass fraction] 95 % Corina Nguyen MD Work Phone: [facility] 05-14-2025 14:16-0400 Systolic blood pressure 161 mm[Hg] Corina Nguyen MD Work Phone: [facility] 05-08-2025 10:21-0400 Body height 182.[address] Umm Mario MD Work Phone: [facility] 05-08-2025 10:21-0400 Body mass index (BMI) [Ratio] 29.8 kg/m2 Dr. Umm Mario MD Work Phone: [facility] 05-08-2025 10:21-0400 Body temperature 96.3 [degF] Dr. Umm Mario MD Work Phone: [facility] 05-08-2025 10:21-0400 Body weight 99.[address] Umm Mario MD Work Phone: [facility] 05-08-2025 10:21-0400 Diastolic blood pressure 72 mm[Hg] Dr. Umm Mario MD Work Phone: [facility] 05-08-2025 10:21-0400 Heart rate 42 /min Dr. Umm Mario MD Work Phone: [facility] 05-08-2025 10:21-0400 Respiratory rate 18 /min Dr. Umm Mario MD Work Phone: [facility] 05-08-2025 10:21-0400 SaO2% (BldA) [Mass fraction] 95 % Dr. Umm Mario MD Work Phone: [facility] 05-08-2025 10:21-0400 Systolic blood pressure 108 mm[Hg] Dr. Umm Mario MD Work Phone: [facility] 04-19-2025 13:54-0400 Body height 182.[address] Umm Mario MD Work Phone: [facility] 04-19-2025 13:54-0400 Body mass index (BMI) [Ratio] 30.9 kg/m2 Dr. Umm Mario MD Work Phone: [facility] 04-19-2025 13:54-0400 Body temperature 98.2 [degF] Dr. Umm Mario MD Work Phone: [facility] 04-19-2025 13:54-0400 Body weight 103.[address] Umm Mario MD Work Phone: [facility] 04-19-2025 13:54-0400 Diastolic blood pressure 62 mm[Hg] Dr. Umm Mario MD Work Phone: [facility] 04-19-2025 13:54-0400 Heart rate 63 /min Dr. Umm Mario MD Work Phone: [facility] 04-19-2025 13:54-0400 Respiratory rate 18 /min Dr. Umm Mario MD Work Phone: [facility] 04-19-2025 13:54-0400 SaO2% (BldA) [Mass fraction] 94 % Dr. Umm Mario MD Work Phone: [facility] 04-19-2025 13:54-0400 Systolic blood pressure 120 mm[Hg] Dr. Umm Mario MD Work Phone: [facility] 03-21-2025 10:57-0400 Body height 182.[address] Umm Mario MD Work Phone: [facility] 03-21-2025 10:57-0400 Body mass index (BMI) [Ratio] 30.5 kg/m2 Dr. Umm Mario MD Work Phone: [facility] 03-21-2025 10:57-0400 Body weight 102.[address] Umm Mario MD Work Phone: [facility] 03-21-2025 10:57-0400 Diastolic blood pressure 77 mm[Hg] Dr. Umm Mario MD Work Phone: [facility] 03-21-2025 10:57-0400 Heart rate 57 /min Dr. Umm Mario MD Work Phone: [facility] 03-21-2025 10:57-0400 Respiratory rate 18 /min Dr. Umm Mario MD Work Phone: [facility] 03-21-2025 10:57-0400 SaO2% (BldA) [Mass fraction] 94 % Dr. Umm Mario MD Work Phone: [facility] 03-21-2025 10:57-0400 Systolic blood pressure 158 mm[Hg] Dr. Umm Mario MD Work Phone: [facility] 03-17-2025 15:24-0400 Body temperature 98.3 [degF] Dr. Umm Mario MD Work Phone: [facility] 03-17-2025 15:24-0400 Diastolic blood pressure 82 mm[Hg] Dr. Umm Mario MD Work Phone: [facility] 03-17-2025 15:24-0400 Heart rate 62 /min Dr. Umm Mario MD Work Phone: [facility] 03-17-2025 15:24-0400 Respiratory rate 18 /min Dr. Umm Mario MD Work Phone: [facility] 03-17-2025 15:24-0400 SaO2% (BldA) [Mass fraction] 100 % Dr. Umm Mario MD Work Phone: [facility] 03-17-2025 15:24-0400 Systolic blood pressure 149 mm[Hg] Dr. Umm Mario MD Work Phone: [facility] 03-17-2025 13:53-0400 Body height 182.[address] Umm Mario MD Work Phone: [facility] 03-17-2025 13:53-0400 Body mass index (BMI) [Ratio] 29.5 kg/m2 Dr. Umm Mario MD Work Phone: [facility] 03-17-2025 13:53-0400 Body weight 98.[address] Umm Mario MD Work Phone: [facility] 03-17-2025 07:04-0400 Body temperature 98.2 [degF] Dr. Umm Mario MD Work Phone: [facility] 03-17-2025 07:04-0400 Diastolic blood pressure 69 mm[Hg] Dr. Umm Mario MD Work Phone: [facility] 03-17-2025 07:04-0400 Heart rate 56 /min Dr. Umm Mario MD Work Phone: [facility] 03-17-2025 07:04-0400 Respiratory rate 16 /min Dr. Umm Mario MD Work Phone: [facility] 03-17-2025 07:04-0400 SaO2% (BldA) [Mass fraction] 99 % Dr. Umm Mario MD Work Phone: [facility] 03-17-2025 07:04-0400 Systolic blood pressure 140 mm[Hg] Dr. Umm Mario MD Work Phone: [facility] 03-17-2025 05:41-0400 Body height 182.[address] Umm Mario MD Work Phone: [facility] 03-17-2025 05:41-0400 Body mass index (BMI) [Ratio] 30.6 kg/m2 Dr. Umm Mario MD Work Phone: [facility] 03-17-2025 05:41-0400 Body weight 102.[address] Umm Mario MD Work Phone: [facility] 03-10-2025 17:13-0400 Body temperature 97.9 [degF] Dr. Umm Mario MD Work Phone: [facility] 03-10-2025 17:13-0400 Diastolic blood pressure 76 mm[Hg] Dr. Umm Mario MD Work Phone: [facility] 03-10-2025 17:13-0400 Heart rate 63 /min Dr. Umm Mario MD Work Phone: [facility] 03-10-2025 17:13-0400 Respiratory rate 16 /min Dr. Umm Mario MD Work Phone: [facility] 03-10-2025 17:13-0400 SaO2% (BldA) [Mass fraction] 97 % Dr. Umm Mario MD Work Phone: [facility] 03-10-2025 17:13-0400 Systolic blood pressure 128 mm[Hg] Dr. Umm Mario MD Work Phone: [facility] 03-10-2025 16:23-0400 Body mass index (BMI) [Ratio] 30.9 kg/m2 Dr. Umm Mario MD Work Phone: [facility] 03-10-2025 16:23-0400 Body weight 103.[address] Umm Mario MD Work Phone: [facility] 03-10-2025 16:06-0400 Body height 182.[address] Umm Mario MD Work Phone: [facility] 02-19-2025 06:29-0400 Body height 182.[address] Umm Mario MD Work Phone: [facility] 02-19-2025 06:29-0400 Body mass index (BMI) [Ratio] 30.1 kg/m2 Dr. Umm Mario MD Work Phone: [facility] 02-19-2025 06:29-0400 Body weight 100.[address] Umm Mario MD Work Phone: [facility] 02-19-2025 06:29-0400 Diastolic blood pressure 80 mm[Hg] Dr. Umm Mario MD Work Phone: [facility] 02-19-2025 06:29-0400 Heart rate 78 /min Dr. Umm Mario MD Work Phone: [facility] 02-19-2025 06:29-0400 Respiratory rate 18 /min Dr. Umm Mario MD Work Phone: [facility] 02-19-2025 06:29-0400 SaO2% (BldA) [Mass fraction] 98 % Dr. Umm Mario MD Work Phone: [facility] 02-19-2025 06:29-0400 Systolic blood pressure 156 mm[Hg] Dr. Umm Mario MD Work Phone: [facility] 02-14-2025 14:27-0400 Body height 182.[address] Umm Mario MD Work Phone: [facility] 02-14-2025 14:27-0400 Body mass index (BMI) [Ratio] 30.1 kg/m2 Dr. Umm Mario MD Work Phone: [facility] 02-14-2025 14:27-0400 Body temperature 98 [degF] Dr. Umm Mario MD Work Phone: [facility] 02-14-2025 14:27-0400 Body weight 100.[address] Umm Mario MD Work Phone: [facility] 02-14-2025 14:27-0400 Diastolic blood pressure 78 mm[Hg] Dr. Umm Mario MD Work Phone: [facility] 02-14-2025 14:27-0400 Heart rate 60 /min Dr. Umm Mario MD Work Phone: [facility] 02-14-2025 14:27-0400 Respiratory rate 16 /min Dr. Umm Mario MD Work Phone: [facility] 02-14-2025 14:27-0400 SaO2% (BldA) [Mass fraction] 96 % Dr. Umm Mario MD Work Phone: [facility] 02-14-2025 14:27-0400 Systolic blood pressure 124 mm[Hg] Dr. Umm Mario MD Work Phone: [facility] 12-14-2024 08:21-0400 Body mass index (BMI) [Ratio] 29.7 kg/m2 Dr. Umm Mario MD Work Phone: [facility] 12-14-2024 08:21-0400 Body temperature 96.7 [degF] Dr. Umm Mario MD Work Phone: [facility] 12-14-2024 08:21-0400 Body weight 99.[address] Umm Mario MD Work Phone: [facility] 12-14-2024 08:21-0400 Diastolic blood pressure 74 mm[Hg] Dr. Umm Mario MD Work Phone: [facility] 12-14-2024 08:21-0400 Heart rate 59 /min Dr. Umm Mario MD Work Phone: [facility] 12-14-2024 08:21-0400 Respiratory rate 20 /min Dr. Umm Mario MD Work Phone: [facility] 12-14-2024 08:21-0400 SaO2% (BldA) [Mass fraction] 98 % Dr. Umm Mario MD Work Phone: [facility] 12-14-2024 08:21-0400 Systolic blood pressure 147 mm[Hg] Dr. Umm Mario MD Work Phone: [facility] 11-15-2024 15:09-0500 Body height 182.[address] Umm Mario MD Work Phone: [facility] 11-15-2024 15:09-0500 Body mass index (BMI) [Ratio] 29.7 kg/m2 Dr. Umm Mario MD Work Phone: [facility] 11-15-2024 15:09-0500 Body temperature 96.8 [degF] Dr. Umm Mario MD Work Phone: [facility] 11-15-2024 15:09-0500 Body weight 99.[address] Umm Mario MD Work Phone: [facility] 11-15-2024 15:09-0500 Diastolic blood pressure 60 mm[Hg] Dr. Umm Mario MD Work Phone: [facility] 11-15-2024 15:09-0500 Heart rate 60 /min Dr. Umm Mario MD Work Phone: [facility] 11-15-2024 15:09-0500 Respiratory rate 18 /min Dr. Umm Mario MD Work Phone: [facility] 11-15-2024 15:09-0500 SaO2% (BldA) [Mass fraction] 99 % Dr. Umm Mario MD Work Phone: [facility] 11-15-2024 15:09-0500 Systolic blood pressure 130 mm[Hg] Dr. Umm Mario MD Work Phone: [facility] 10-23-2024 13:58-0500 Body mass index (BMI) [Ratio] 29.5 kg/m2 Dr. Umm Mario MD Work Phone: [facility] 10-23-2024 13:58-0500 Body weight 98.[address] Umm Mario MD Work Phone: [facility] 10-23-2024 13:58-0500 Diastolic blood pressure 77 mm[Hg] Dr. Umm Mario MD Work Phone: [facility] 10-23-2024 13:58-0500 Heart rate 67 /min Dr. Umm Mario MD Work Phone: [facility] 10-23-2024 13:58-0500 Respiratory rate 18 /min Dr. Umm Mario MD Work Phone: [facility] 10-23-2024 13:58-0500 SaO2% (BldA) [Mass fraction] 99 % Dr. Umm Mario MD Work Phone: [facility] 10-23-2024 13:58-0500 Systolic blood pressure 140 mm[Hg] Dr. Umm Mario MD Work Phone: [facility] 08-15-2024 14:31-0500 Body mass index (BMI) [Ratio] 29.7 kg/m2 Dr. Umm Mario MD Work Phone: [facility] 08-15-2024 14:31-0500 Body temperature 97.3 [degF] Dr. Umm Mario MD Work Phone: [facility] 08-15-2024 14:31-0500 Body weight 99.[address] Umm Mario MD Work Phone: [facility] 08-15-2024 14:31-0500 Diastolic blood pressure 78 mm[Hg] Dr. Umm Mario MD Work Phone: [facility] 08-15-2024 14:31-0500 Heart rate 66 /min Dr. Umm Mario MD Work Phone: [facility] 08-15-2024 14:31-0500 Respiratory rate 14 /min Dr. Umm Mario MD Work Phone: [facility] 08-15-2024 14:31-0500 SaO2% (BldA) [Mass fraction] 98 % Dr. Umm Mario MD Work Phone: [facility] 08-15-2024 14:31-0500 Systolic blood pressure 120 mm[Hg] Dr. Umm Mario MD Work Phone: [facility] 08-09-2024 13:23-0500 Body mass index (BMI) [Ratio] 29.4 kg/m2 Dr. Umm Mario MD Work Phone: [facility] 08-09-2024 13:23-0500 Body temperature 97.6 [degF] Dr. Umm Mario MD Work Phone: [facility] 08-09-2024 13:23-0500 Body weight 98.[address] Umm Mario MD Work Phone: [facility] 08-09-2024 13:23-0500 Diastolic blood pressure 64 mm[Hg] Dr. Umm Mario MD Work Phone: [facility] 08-09-2024 13:23-0500 Heart rate 52 /min Dr. Umm Mario MD Work Phone: [facility] 08-09-2024 13:23-0500 Respiratory rate 18 /min Dr. Umm Mario MD Work Phone: [facility] 08-09-2024 13:23-0500 SaO2% (BldA) [Mass fraction] 92 % Dr. Umm Mario MD Work Phone: [facility] 08-09-2024 13:23-0500 Systolic blood pressure 134 mm[Hg] Dr. Umm Mario MD Work Phone: [facility] 01-01-2024 09:53-0400 Body temperature 97.6 [degF] Dr. Umm Mario Work Phone: [facility] 01-01-2024 09:53-0400 Diastolic blood pressure 52 mm[Hg] Dr. Umm Mario Work Phone: [facility] 01-01-2024 09:53-0400 Heart rate 60 /min Dr. Umm Mario Work Phone: [facility] 01-01-2024 09:53-0400 Respiratory rate 17 /min Dr. Umm Mario Work Phone: [facility] 01-01-2024 09:53-0400 SaO2% (BldA) [Mass fraction] 98 % Dr. Umm Mario Work Phone: [facility] 01-01-2024 09:53-0400 Systolic blood pressure 103 mm[Hg] Dr. Umm Mario Work Phone: [facility] 12-28-2023 15:54-0400 Body height 182.[address] Umm Mario Work Phone: [facility] 12-28-2023 15:54-0400 Body weight 99.[address] Umm Mario Work Phone: [facility] 12-27-2023 13:00-0400 Body mass index (BMI) [Ratio] 29.7 kg/m2 Dr. Umm Mario Work Phone: [facility] 12-27-2023 10:02-0400 Diastolic blood pressure 68 mm[Hg] Dr. Umm Mario Work Phone: [facility] 12-27-2023 10:02-0400 Heart rate 66 /min Dr. Umm Mario Work Phone: [facility] 12-27-2023 10:02-0400 Systolic blood pressure 127 mm[Hg] Dr. Umm Mario Work Phone: [facility] 12-27-2023 08:54-0400 Body height 182.[address] Umm Mario Work Phone: [facility] 12-27-2023 08:54-0400 Body mass index (BMI) [Ratio] 29.8 kg/m2 Dr. Umm Mario Work Phone: [facility] 12-27-2023 08:54-0400 Body weight 99.[address] Umm Mario Work Phone: [facility] 12-27-2023 08:54-0400 Diastolic blood pressure 75 mm[Hg] Dr. Umm Mario Work Phone: [facility] 12-27-2023 08:54-0400 Heart rate 65 /min Dr. Umm Mario Work Phone: [facility] 12-27-2023 08:54-0400 Respiratory rate 18 /min Dr. Umm Mario Work Phone: [facility] 12-27-2023 08:54-0400 Systolic blood pressure 129 mm[Hg] Dr. Umm Mario Work Phone: [facility] 12-26-2023 14:11-0400 Body temperature 97.1 [degF] Dr. Umm Mario Work Phone: [facility] 12-26-2023 14:11-0400 Respiratory rate 14 /min Dr. Umm Mario Work Phone: [facility] 12-26-2023 14:11-0400 SaO2% (BldA) [Mass fraction] 98 % Dr. Umm Mario Work Phone: [facility] 12-21-2023 16:10-0400 Body temperature 97 [degF] Dr. Umm Mario Work Phone: [facility] 12-21-2023 16:10-0400 Diastolic blood pressure 60 mm[Hg] Dr. Umm Mario Work Phone: [facility] 12-21-2023 16:10-0400 Heart rate 62 /min Dr. Umm Mario Work Phone: [facility] 12-21-2023 16:10-0400 Respiratory rate 16 /min Dr. Umm Mario Work Phone: [facility] 12-21-2023 16:10-0400 SaO2% (BldA) [Mass fraction] 97 % Dr. Umm Mario Work Phone: [facility] 12-21-2023 16:10-0400 Systolic blood pressure 148 mm[Hg] Dr. Umm Mario Work Phone: [facility] 12-21-2023 15:39-0400 Body weight 101.[address] Umm Mario Work Phone: [facility] 12-21-2023 14:26-0400 Body mass index (BMI) [Ratio] 31.7 kg/m2 Dr. Umm Mario Work Phone: [facility] 12-21-2023 14:26-0400 Body weight 106.[address] Umm Mario Work Phone: [facility] 12-20-2023 12:45-0400 Body mass index (BMI) [Ratio] 30.3 kg/m2 Dr. Umm Mario Work Phone: [facility] 12-08-2023 09:30-0400 Body temperature 97.7 [degF] Dr. Umm Mario Work Phone: [facility] 12-08-2023 09:30-0400 Diastolic blood pressure 80 mm[Hg] Dr. Umm Mario Work Phone: [facility] 12-08-2023 09:30-0400 Heart rate 68 /min Dr. Umm Mario Work Phone: [facility] 12-08-2023 09:30-0400 Respiratory rate 16 /min Dr. Umm Mario Work Phone: [facility] 12-08-2023 09:30-0400 SaO2% (BldA) [Mass fraction] 96 % Dr. Umm Maroi Work Phone: [facility] 12-08-2023 09:30-0400 Systolic blood pressure 119 mm[Hg] Dr. Umm Mario Work Phone: [facility] 12-08-2023 02:28-0400 Body mass index (BMI) [Ratio] 31 kg/m2 Dr. Umm Mario Work Phone: [facility] 12-08-2023 02:28-0400 Body weight 103.[address] Umm Mario Work Phone: [facility] 12-07-2023 08:20-0400 Body height 182.[address] Umm Mario Work Phone: [facility] 12-05-2023 20:07-0400 Inhaled oxygen flow rate 3 L/min Dr. Umm Mario Work Phone: [facility] 12-02-2023 16:45-0400 Body temperature 99.1 [degF] Dr. Umm Mario Work Phone: [facility] 12-02-2023 16:45-0400 Diastolic blood pressure 65 mm[Hg] Dr. Umm Mario Work Phone: [facility] 12-02-2023 16:45-0400 Heart rate 90 /min Dr. Umm Mario Work Phone: [facility] 12-02-2023 16:45-0400 Respiratory rate 26 /min Dr. Umm Mario Work Phone: [facility] 12-02-2023 16:45-0400 SaO2% (BldA) [Mass fraction] 94 % Dr. Umm Mario Work Phone: [facility] 12-02-2023 16:45-0400 Systolic blood pressure 129 mm[Hg] Dr. Umm Mario Work Phone: [facility] 12-02-2023 12:31-0400 Body height 182.[address] Umm Mario Work Phone: [facility] 12-02-2023 12:31-0400 Body mass index (BMI) [Ratio] 31.7 kg/m2 Dr. Umm Mario Work Phone: [facility] 12-02-2023 12:31-0400 Body weight 106.[address] Umm Mario Work Phone: [facility] 10-20-2023 09:47-0500 Body mass index (BMI) [Ratio] 31.3 kg/m2 Dr. Umm Mario Work Phone: [facility] 10-20-2023 09:47-0500 Body weight 104.[address] Umm Mario Work Phone: [facility] 10-20-2023 09:47-0500 Diastolic blood pressure 72 mm[Hg] Dr. Umm Mario Work Phone: [facility] 10-20-2023 09:47-0500 Heart rate 66 /min Dr. Umm Mario Work Phone: [facility] 10-20-2023 09:47-0500 Respiratory rate 18 /min Dr. Umm Mario Work Phone: [facility] 10-20-2023 09:47-0500 Systolic blood pressure 131 mm[Hg] Dr. Umm Mario Work Phone: [facility] 08-15-2023 14:47-0500 Body mass index (BMI) [Ratio] 31.4 kg/m2 Dr. Umm Mario Work Phone: [facility] 08-15-2023 14:47-0500 Body temperature 97.5 [degF] Dr. Umm Mario Work Phone: [facility] 08-15-2023 14:47-0500 Body weight [address] Umm Mario Work Phone: [facility] 08-15-2023 14:47-0500 Diastolic blood pressure 76 mm[Hg] Dr. Umm Mario Work Phone: [facility] 08-15-2023 14:47-0500 Heart rate 61 /min Dr. Umm Mario Work Phone: [facility] 08-15-2023 14:47-0500 Respiratory rate 18 /min Dr. Umm Mario Work Phone: [facility] 08-15-2023 14:47-0500 SaO2% (BldA) [Mass fraction] 99 % Dr. Umm Mario Work Phone: [facility] 08-15-2023 14:47-0500 Systolic blood pressure 128 mm[Hg] Dr. Umm Mario Work Phone: [facility] 04-28-2023 14:10-0400 Body height 182.[address] Umm Mario Work Phone: [facility] 04-28-2023 14:10-0400 Body mass index (BMI) [Ratio] 31.6 kg/m2 Dr. Umm Mario Work Phone: [facility] 04-28-2023 14:10-0400 Body temperature 97.4 [degF] Dr. Umm Mario Work Phone: [facility] 04-28-2023 14:10-0400 Body weight 105.[address] Umm Mario Work Phone: [facility] 04-28-2023 14:10-0400 Diastolic blood pressure 78 mm[Hg] Dr. Umm Mario Work Phone: [facility] 04-28-2023 14:10-0400 Heart rate 68 /min Dr. Umm Mario Work Phone: [facility] 04-28-2023 14:10-0400 Respiratory rate 18 /min Dr. Umm Mario Work Phone: [facility] 04-28-2023 14:10-0400 SaO2% (BldA) [Mass fraction] 94 % Dr. Umm Mario Work Phone: [facility] 04-28-2023 14:10-0400 Systolic blood pressure 132 mm[Hg] Dr. Umm Mario Work Phone: [facility] 04-22-2023 22:20-0400 Diastolic blood pressure 76 mm[Hg] Dr. Umm Mario Work Phone: [facility] 04-22-2023 22:20-0400 Heart rate 83 /min Dr. Umm Mario Work Phone: [facility] 04-22-2023 22:20-0400 Respiratory rate 14 /min Dr. Umm Mario Work Phone: [facility] 04-22-2023 22:20-0400 SaO2% (BldA) [Mass fraction] 97 % Dr. Umm Mario Work Phone: [facility] 04-22-2023 22:20-0400 Systolic blood pressure 145 mm[Hg] Dr. Umm Mario Work Phone: [facility] 04-22-2023 20:18-0400 Body height 182.[address] Umm Mario Work Phone: [facility] 04-22-2023 20:18-0400 Body mass index (BMI) [Ratio] 31.5 kg/m2 Dr. Umm Mario Work Phone: [facility] 04-22-2023 20:18-0400 Body temperature 98.6 [degF] Dr. Umm Mario Work Phone: [facility] 04-22-2023 20:18-0400 Body weight 105.[address] Umm Mario Work Phone: [facility] 04-12-2023 14:02-0400 Body mass index (BMI) [Ratio] 31.7 kg/m2 Dr. Umm Mario Work Phone: [facility] 04-12-2023 14:02-0400 Body weight 106.[address] Umm Mario Work Phone: [facility] 04-12-2023 14:02-0400 Diastolic blood pressure 75 mm[Hg] Dr. Umm Mario Work Phone: [facility] 04-12-2023 14:02-0400 Heart rate 64 /min Dr. Umm Mario Work Phone: [facility] 04-12-2023 14:02-0400 Respiratory rate 20 /min Dr. Umm Mario Work Phone: [facility] 04-12-2023 14:02-0400 SaO2% (BldA) [Mass fraction] 99 % Dr. Umm Mario Work Phone: [facility] 04-12-2023 14:02-0400 Systolic blood pressure 140 mm[Hg] Dr. Umm Mario Work Phone: [facility] 03-25-2023 13:24-0400 Respiratory rate 18 /min Dr. Umm Mario Work Phone: [facility] 03-25-2023 11:28-0400 Body mass index (BMI) [Ratio] 31.4 kg/m2 Dr. Umm Mario Work Phone: [facility] 03-25-2023 11:28-0400 Body temperature 98.2 [degF] Dr. Umm Mario Work Phone: [facility] 03-25-2023 11:28-0400 Body weight 105.[address] Umm Mraio Work Phone: [facility] 03-25-2023 11:28-0400 Diastolic blood pressure 67 mm[Hg] Dr. Umm Mario Work Phone: [facility] 03-25-2023 11:28-0400 Heart rate 62 /min Dr. Umm Mario Work Phone: [facility] 03-25-2023 11:28-0400 SaO2% (BldA) [Mass fraction] 98 % Dr. Umm Mario Work Phone: [facility] 03-25-2023 11:28-0400 Systolic blood pressure 172 mm[Hg] Dr. Umm Mario Work Phone: [facility] 03-24-2023 16:41-0400 Body mass index (BMI) [Ratio] 31.7 kg/m2 Dr. Umm Mario Work Phone: [facility] 03-24-2023 16:41-0400 Body temperature 97.9 [degF] Dr. Umm Mario Work Phone: [facility] 03-24-2023 16:41-0400 Body weight 106.[address] Umm Mario Work Phone: [facility] 03-24-2023 16:41-0400 Diastolic blood pressure 84 mm[Hg] Dr. Umm Mario Work Phone: [facility] 03-24-2023 16:41-0400 Heart rate 62 /min Dr. Umm Mario Work Phone: [facility] 03-24-2023 16:41-0400 Respiratory rate 16 /min Dr. Umm Mario Work Phone: [facility] 03-24-2023 16:41-0400 SaO2% (BldA) [Mass fraction] 98 % Dr. Umm Mario Work Phone: [facility] 03-24-2023 16:41-0400 Systolic blood pressure 120 mm[Hg] Dr. Umm Mario Work Phone: [facility] 03-21-2023 23:06-0400 Respiratory rate 16 /min Dr. Umm Mario Work Phone: [facility] 03-21-2023 19:55-0400 Body height 182.[address] Umm Mario Work Phone: [facility] 03-21-2023 19:55-0400 Body mass index (BMI) [Ratio] 31.6 kg/m2 Dr. Umm Mario Work Phone: [facility] 03-21-2023 19:55-0400 Body temperature 98 [degF] Dr. Umm Mario Work Phone: [facility] 03-21-2023 19:55-0400 Body weight 105.[address] Umm Mario Work Phone: [facility] 03-21-2023 19:55-0400 Diastolic blood pressure 65 mm[Hg] Dr. Umm Mario Work Phone: [facility] 03-21-2023 19:55-0400 Heart rate 54 /min Dr. Umm Mario Work Phone: [facility] 03-21-2023 19:55-0400 SaO2% (BldA) [Mass fraction] 97 % Dr. Umm Mario Work Phone: [facility] 03-21-2023 19:55-0400 Systolic blood pressure 167 mm[Hg] Dr. Umm Mario Work Phone: [facility] 03-12-2023 14:56-0400 Diastolic blood pressure 82 mm[Hg] Dr. Umm Mario Work Phone: [facility] 03-12-2023 14:56-0400 Heart rate 50 /min Dr. Umm Mario Work Phone: [facility] 03-12-2023 14:56-0400 Respiratory rate 14 /min Dr. Umm Mario Work Phone: [facility] 03-12-2023 14:56-0400 SaO2% (BldA) [Mass fraction] 99 % Dr. Umm Mario Work Phone: [facility] 03-12-2023 14:56-0400 Systolic blood pressure 131 mm[Hg] Dr. Umm Mario Work Phone: [facility] 03-12-2023 12:20-0400 Body height 182.[address] Umm Mario Work Phone: [facility] 03-12-2023 12:20-0400 Body mass index (BMI) [Ratio] 31.9 kg/m2 Dr. Umm Mario Work Phone: [facility] 03-12-2023 12:20-0400 Body temperature 96.8 [degF] Dr. Umm Mario Work Phone: [facility] 03-12-2023 12:20-0400 Body weight 106.[address] Umm Mario Work Phone: [facility] 01-22-2023 10:04-0400 Body height 182.[address] Umm Mario Work Phone: [facility] 01-22-2023 10:04-0400 Body mass index (BMI) [Ratio] 31.6 kg/m2 Dr. Umm Mario Work Phone: [facility] 01-22-2023 10:04-0400 Body temperature 97.6 [degF] Dr. Umm Mario Work Phone: [facility] 01-22-2023 10:04-0400 Body weight 105.[address] Umm Mario Work Phone: [facility] 01-22-2023 10:04-0400 Diastolic blood pressure 66 mm[Hg] Dr. Umm Mario Work Phone: [facility] 01-22-2023 10:04-0400 Heart rate 57 /min Dr. Umm Mario Work Phone: [facility] 01-22-2023 10:04-0400 Respiratory rate 18 /min Dr. Umm Mario Work Phone: [facility] 01-22-2023 10:04-0400 SaO2% (BldA) [Mass fraction] 97 % Dr. Umm Mario Work Phone: [facility] 01-22-2023 10:04-0400 Systolic blood pressure 141 mm[Hg] Dr. Umm Mario Work Phone: [facility] 12-29-2022 14:18-0400 Body mass index (BMI) [Ratio] 31.7 kg/m2 Dr. Umm Mario Work Phone: [facility] 12-29-2022 14:18-0400 Body temperature 97.9 [degF] Dr. Umm Mario Work Phone: [facility] 12-29-2022 14:18-0400 Body weight 106.[address] Umm Mario Work Phone: [facility] 12-29-2022 14:18-0400 Diastolic blood pressure 70 mm[Hg] Dr. Umm Mario Work Phone: [facility] 12-29-2022 14:18-0400 Heart rate 57 /min Dr. Umm Mario Work Phone: [facility] 12-29-2022 14:18-0400 Respiratory rate 12 /min Dr. Umm Mario Work Phone: [facility] 12-29-2022 14:18-0400 SaO2% (BldA) [Mass fraction] 97 % Dr. Umm Mario Work Phone: [facility] 12-29-2022 14:18-0400 Systolic blood pressure 138 mm[Hg] Dr. Umm Mario Work Phone: [facility] 11-03-2022 08:14-0500 Body mass index (BMI) [Ratio] 31.1 kg/m2 Dr. Umm Mario Work Phone: [facility] 11-03-2022 08:14-0500 Body temperature 97.2 [degF] Dr. Umm Mario Work Phone: [facility] 11-03-2022 08:14-0500 Body weight 104.[address] Umm Mario Work Phone: [facility] 11-03-2022 08:14-0500 Diastolic blood pressure 80 mm[Hg] Dr. Umm Mario Work Phone: [facility] 11-03-2022 08:14-0500 Heart rate 64 /min Dr. Umm Mario Work Phone: [facility] 11-03-2022 08:14-0500 Respiratory rate 18 /min Dr. Umm Mario Work Phone: [facility] 11-03-2022 08:14-0500 SaO2% (BldA) [Mass fraction] 97 % Dr. Umm Mario Work Phone: [facility] 11-03-2022 08:14-0500 Systolic blood pressure 157 mm[Hg] Dr. Umm Mario Work Phone: [facility] 10-05-2022 13:09-0500 Body height 182.[address] Umm Mario Work Phone: [facility] 10-05-2022 13:09-0500 Body mass index (BMI) [Ratio] 31.8 kg/m2 Dr. Umm Mario Work Phone: [facility] 10-05-2022 13:09-0500 Body weight 106.[address] Umm Mario Work Phone: [facility] 10-05-2022 13:09-0500 Diastolic blood pressure 80 mm[Hg] Dr. Umm Mario Work Phone: [facility] 10-05-2022 13:09-0500 Heart rate 56 /min Dr. Umm Mario Work Phone: [facility] 10-05-2022 13:09-0500 Respiratory rate 16 /min Dr. Umm Mario Work Phone: [facility] 10-05-2022 13:09-0500 Systolic blood pressure 153 mm[Hg] Dr. Umm Mario Work Phone: [facility] 09-08-2022 12:09-0500 Diastolic blood pressure 66 mm[Hg] Dr. Umm Mario Work Phone: [facility] 09-08-2022 12:09-0500 Heart rate 54 /min Dr. Umm Mario Work Phone: [facility] 09-08-2022 12:09-0500 Systolic blood pressure 116 mm[Hg] Dr. Umm Mario Work Phone: [facility] 08-27-2022 15:25-0500 Diastolic blood pressure 74 mm[Hg] Dr. Umm Mario Work Phone: [facility] 08-27-2022 15:25-0500 Systolic blood pressure 142 mm[Hg] Dr. Umm Mario Work Phone: [facility] 08-27-2022 15:04-0500 Body height 182.[address] Umm Mario Work Phone: [facility] Work Phone: 08-27-2022 15:04-0500 Body mass index (BMI) [Ratio] 32.3 kg/m2 Dr. Umm Mario Work Phone: [facility] 08-27-2022 15:04-0500 Body temperature 96.3 [degF] Dr. Umm Mario Work Phone: [facility] 08-27-2022 15:04-0500 Body weight 107.[address] Umm Mario Work Phone: [facility] 08-27-2022 15:04-0500 Heart rate 55 /min Dr. Umm Mario Work Phone: [facility] 08-27-2022 15:04-0500 Respiratory rate 16 /min Dr. Umm Mario Work Phone: [facility] 08-27-2022 15:04-0500 SaO2% (BldA) [Mass fraction] 99 % Dr. Umm Mario Work Phone: [facility] 08-24-2022 08:12-0500 Diastolic blood pressure 70 mm[Hg] Dr. Umm Mario Work Phone: [facility] 08-24-2022 08:12-0500 Heart rate 56 /min Dr. Umm Mario Work Phone: [facility] 08-24-2022 08:12-0500 Respiratory rate 16 /min Dr. Umm Mario Work Phone: [facility] 08-24-2022 08:12-0500 SaO2% (BldA) [Mass fraction] 97 % Dr. Umm Mario Work Phone: [facility] 08-24-2022 08:12-0500 Systolic blood pressure 154 mm[Hg] Dr. Umm Mario Work Phone: [facility] 08-24-2022 06:09-0500 Body height 182.[address] Umm Mario Work Phone: [facility] Work Phone: 08-24-2022 06:09-0500 Body mass index (BMI) [Ratio] 32.8 kg/m2 Dr. Umm Mario Work Phone: [facility] 08-24-2022 06:09-0500 Body temperature 96.8 [degF] Dr. Umm Mario Work Phone: [facility] 08-24-2022 06:09-0500 Body weight 109.[address] Umm Mario Work Phone: [facility] 08-04-2022 14:02-0500 Body height 182.[address] Umm Mario Work Phone: [facility] Work Phone: 08-04-2022 14:02-0500 Body mass index (BMI) [Ratio] 32.3 kg/m2 Dr. Umm Mario Work Phone: [facility] 08-04-2022 14:02-0500 Body temperature 97.2 [degF] Dr. Umm Mario Work Phone: [facility] 08-04-2022 14:02-0500 Body weight 107.[address] Umm Mario Work Phone: [facility] 08-04-2022 14:02-0500 Diastolic blood pressure 78 mm[Hg] Dr. Umm Mario Work Phone: [facility] 08-04-2022 14:02-0500 Heart rate 52 /min Dr. Umm Mario Work Phone: [facility] 08-04-2022 14:02-0500 Respiratory rate 16 /min Dr. Umm Mario Work Phone: [facility] 08-04-2022 14:02-0500 SaO2% (BldA) [Mass fraction] 99 % Dr. Umm Mario Work Phone: [facility] 08-04-2022 14:02-0500 Systolic blood pressure 130 mm[Hg] Dr. Umm Mario Work Phone: [facility] 05-06-2022 11:43-0400 Body mass index (BMI) [Ratio] 32.4 kg/m2 Dr. Umm Mario Work Phone: [facility] Work Phone: 05-06-2022 11:43-0400 Body temperature 98.4 [degF] Dr. Umm Mario Work Phone: [facility] Work Phone: 05-06-2022 11:43-0400 Body weight 108.[address] Umm Mario Work Phone: [facility] Work Phone: 05-06-2022 11:43-0400 Diastolic blood pressure 72 mm[Hg] Dr. Umm Mario Work Phone: [facility] Work Phone: 05-06-2022 11:43-0400 Heart rate 61 /min Dr. Umm Mario Work Phone: [facility] Work Phone: 05-06-2022 11:43-0400 Respiratory rate 16 /min Dr. Umm Mario Work Phone: [facility] Work Phone: 05-06-2022 11:43-0400 SaO2% (BldA) [Mass fraction] 98 % Dr. Umm Mario Work Phone: [facility] Work Phone: 05-06-2022 11:43-0400 Systolic blood pressure 145 mm[Hg] Dr. Umm Mario Work Phone: [facility] Work Phone: 12-03-2021 14:07-0400 Body height 182.[address] Umm Mario Work Phone: [facility] Work Phone: 12-03-2021 14:07-0400 Body mass index (BMI) [Ratio] 32.3 kg/m2 Dr. Umm Mario Work Phone: [facility] Work Phone: 12-03-2021 14:07-0400 Body temperature 97.5 [degF] Dr. Umm Mario Work Phone: [facility] Work Phone: 12-03-2021 14:07-0400 Body weight 107.[address] Umm Mario Work Phone: [facility] Work Phone: 12-03-2021 14:07-0400 Diastolic blood pressure 82 mm[Hg] Dr. Umm Mario Work Phone: [facility] Work Phone: 12-03-2021 14:07-0400 Heart rate 73 /min Dr. Umm Mario Work Phone: [facility] Work Phone: 12-03-2021 14:07-0400 Respiratory rate 20 /min Dr. Umm Mario Work Phone: [facility] Work Phone: 12-03-2021 14:07-0400 SaO2% (BldA) [Mass fraction] 97 % Dr. Umm Mario Work Phone: [facility] Work Phone: 12-03-2021 14:07-0400 Systolic blood pressure 132 mm[Hg] Dr. Umm Mario Work Phone: [facility] Work Phone: 11-12-2021 11:46-0500 Body mass index (BMI) [Ratio] 32.8 kg/m2 Dr. Umm Mario Work Phone: [facility] Work Phone: 11-12-2021 11:46-0500 Body temperature 97.5 [degF] Dr. Umm Mario Work Phone: [facility] Work Phone: 11-12-2021 11:46-0500 Body weight 109.[address] Umm Mario Work Phone: [facility] Work Phone: 11-12-2021 11:46-0500 Diastolic blood pressure 68 mm[Hg] Dr. Umm Mario Work Phone: [facility] Work Phone: 11-12-2021 11:46-0500 Heart rate 47 /min Dr. Umm Mario Work Phone: [facility] Work Phone: 11-12-2021 11:46-0500 Respiratory rate 16 /min Dr. Umm Mario Work Phone: [facility] Work Phone: 11-12-2021 11:46-0500 SaO2% (BldA) [Mass fraction] 98 % Dr. Umm Mario Work Phone: [facility] Work Phone: 11-12-2021 11:46-0500 Systolic blood pressure 150 mm[Hg] Dr. Umm Mario Work Phone: [facility] Work Phone: 11-11-2021 14:41-0500 Diastolic blood pressure 92 mm[Hg] Dr. Umm Mario Work Phone: [facility] Work Phone: 11-11-2021 14:41-0500 Systolic blood pressure 182 mm[Hg] Dr. Umm Mario Work Phone: [facility] Work Phone: 10-15-2021 13:09-0500 Body mass index (BMI) [Ratio] 32.9 kg/m2 Dr. Umm Mario Work Phone: [facility] Work Phone: 10-15-2021 13:09-0500 Body temperature 97.7 [degF] Dr. Umm Mario Work Phone: [facility] Work Phone: 10-15-2021 13:09-0500 Body weight 110.[address] Umm Mario Work Phone: [facility] Work Phone: 10-15-2021 13:09-0500 Diastolic blood pressure 70 mm[Hg] Dr. Umm Mario Work Phone: [facility] Work Phone: 10-15-2021 13:09-0500 Heart rate 66 /min Dr. Umm Mario Work Phone: [facility] Work Phone: 10-15-2021 13:09-0500 Respiratory rate 16 /min Dr. Umm Mario Work Phone: [facility] Work Phone: 10-15-2021 13:09-0500 SaO2% (BldA) [Mass fraction] 97 % Dr. Umm Mario Work Phone: [facility] Work Phone: 10-15-2021 13:09-0500 Systolic blood pressure 142 mm[Hg] Dr. Umm Mario Work Phone: [facility] Work Phone: 09-23-2021 13:16-0500 Body mass index (BMI) [Ratio] 32.8 kg/m2 Dr. Umm Mario Work Phone: [facility] Work Phone: 09-23-2021 13:16-0500 Body temperature 95.7 [degF] Dr. Umm Mario Work Phone: [facility] Work Phone: 09-23-2021 13:16-0500 Body weight 109.[address] Umm Mario Work Phone: [facility] Work Phone: 09-23-2021 13:16-0500 Diastolic blood pressure 70 mm[Hg] Dr. Umm Mario Work Phone: [facility] Work Phone: 09-23-2021 13:16-0500 Heart rate 57 /min Dr. Umm Mario Work Phone: [facility] Work Phone: 09-23-2021 13:16-0500 Respiratory rate 16 /min Dr. Umm Mario Work Phone: [facility] Work Phone: 09-23-2021 13:16-0500 SaO2% (BldA) [Mass fraction] 96 % Dr. Umm Mario Work Phone: [facility] Work Phone: 09-23-2021 13:16-0500 Systolic blood pressure 166 mm[Hg] Dr. Umm Mario Work Phone: [facility] Work Phone: 08-18-2021 13:02-0500 Body mass index (BMI) [Ratio] 32.9 kg/m2 Dr. Umm Mario Work Phone: [facility] Work Phone: 08-18-2021 13:02-0500 Body weight 110.[address] Umm Mario Work Phone: [facility] Work Phone: 08-18-2021 13:02-0500 Diastolic blood pressure 69 mm[Hg] Dr. Umm Mario Work Phone: [facility] Work Phone: 08-18-2021 13:02-0500 Heart rate 47 /min Dr. Umm Mario Work Phone: [facility] Work Phone: 08-18-2021 13:02-0500 Respiratory rate 14 /min Dr. Umm Mario Work Phone: [facility] Work Phone: 08-18-2021 13:02-0500 Systolic blood pressure 127 mm[Hg] Dr. Umm Mario Work Phone: [facility] Work Phone: Encounters Encounter Date Encounter Type Care Provider Facility Start: 07-25-2025 ambulatory UMM MARIO Faci lity:[facility] Start: 07-05-2025 End: 07-05-2025 ambulatory Umm Mario Facility[place] Start: 07-05-2025 End: 07-05-2025 Dr. Odalis Schmidt MD -[facility] Work Phone: Start: 07-05-2025 End: 07-05-2025 ambulatory Jeffrey Berkowitz Facility:[facility] Start: 07-02-2025 End: 07-02-2025 Dr. Jeffrey Berkowitz MD -[facility] Work Phone: Start: 07-02-2025 End: 07-02-[address] Umm Mario MD Work Phone: -[facility] Start: 06-24-2025 End: 06-24-2025 Dr. Antonio Licona MD -[facility] Work Phone: Start: 06-24-2025 End: 06-24-[address] Umm Mario MD Work Phone: -[facility] Start: 06-17-2025 End: 06-17-2025 Ailin Sharma CASTING MACHINE OPERATOR HELPER-C -[facility] Work Phone: Start: 06-17-2025 End: 06-17-[address] Umm Mario MD Work Phone: -[facility] Start: 06-07-2025 End: 06-07-2025 Maurice LUEVANO -[facility] Work Phone: Start: 06-07-2025 End: 06-07-[address] Umm Mario MD Work Phone: -[facility] Start: 06-04-2025 End: 06-04-[address] Umm Mario MD Work Phone: -Pulmonary Services/Neurology Start: 06-04-2025 End: 06-04-2025 Dr. John Cool MD -[facility] Work Phone: Start: 06-04-2025 End: 06-04-2025 ambulatory Maurice LUEVANO Facility:[facility] Start: 05-30-2025 End: 05-30-2025 Patient encounter procedure Priya Saleh OD Work Phone: Ophthalmology Comment on above: Regular astigmatism of both eyes (Primary Dx); Presbyopia; Primary open angle glaucoma (POAG) of both eyes, severe stage Start: 05-30-2025 End: 05-30-2025 ambulatory UMM MARIO Facility:[facility] Start: 05-27-2025 End: 05-27-2025 Patient encounter procedure Shawn Shea MD Work Phone: Ophthalmology Comment on above: 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, severe stage Start: 05-27-2025 End: 05-27-2025 ambulatory SHAWN SHEA Facility:[facility] Start: 05-22-2025 End: 05-23-2025 Telephone encounter Corina Nguyen MD Work Phone: [facility] Start: 05-20-2025 End: 05-20-2025 Dr. Umm Mario MD Work Phone: -Emergency Department Work Phone: Start: 05-20-2025 End: 05-20-2025 Emergency department patient visit Dr. Umm Mario MD Work Phone: -Emergency Department Start: 05-14-2025 End: 05-14-2025 Office outpatient new 45 minutes Corina Nguyen MD Work Phone: [facility] Cardiology Art Comment on above: Paroxysmal atrial fi brillation (HCC) (Primary Dx); At risk for stroke; At risk for bleeding associated with anticoagulants; History of lower GI bleeding; Epistaxis; Bradycardia; Sinus node dysfunction (HCC); Sinus bradycardia; Atherosclerosis of [place] coronary artery of [place] heart without angina pectoris; Presence of stent in coronary artery; Nonrheumatic aortic valve stenosis; Primary biliary cirrhosis (HCC); Moderate mitral valve regurgitation; Moderate tricuspid valve regurgitation Start: 05-14-2025 End: 05-14-2025 ambulatory UMM MARIO Facility:[facility] Start: 05-08-2025 End: 05-08-[address] Umm Mario MD Work Phone: -Laboratory Start: 05-08-2025 End: 05-08-2025 Patient encounter procedure Maurice LUEVANO -Laboratory Work Phone: Start: 05-08-2025 End: 05-08-2025 Maurice LUEVANO -Laboratory Work Phone: Start: 05-08-2025 End: 05-08-2025 Patient encounter procedure Maurice LUEVANO -[facility] Work Phone: Start: 05-08-2025 End: 05-08-2025 Maurice LUEVANO -[facility] Work Phone: Start: 05-08-2025 End: 05-08-[address] Umm Mario MD Work Phone: -[facility] Start: 05-08-2025 End: 05-08-2025 ambulatory Maurice LUEVANO Facility:[facility] Start: 04-19-2025 End: 04-19-2025 Patient encounter procedure Allison Kang NP-Elza -[facility] Work Phone: Start: 04-19-2025 End: 04-19-2025 Allison Kang CASTING MACHINE OPERATOR HELPER-C -[facility] Work Phone: Start: 04-19-2025 End: 04-19-[address] Umm Mario MD Work Phone: -[facility] Start: 04-02-2025 Non-patient / Non-visit Dr. Vanessa Simmons MD -[facility] Start: 04-02-2025 End: 04-02-[address] Umm Mario MD Work Phone: -Cardiovascular Services Start: 04-02-2025 End: 04-02-[address] Odalis Schmidt MD -Cardiovascular Services Work Phone: Start: 04-02-2025 End: 04-02-2025 Dr. Vanessa Simmons MD -[facility] Start: 04-02-2025 End: 04-02-2025 ambulatory [facility] Facility:[facility] Start: 03-21-2025 End: 03-21-[address] Odalis Schmidt MD -[facility] Work Phone: Start: 03-21-2025 End: 03-21-2025 Dr. Odalis Schmidt MD -[facility] Work Phone: Start: 03-21-2025 End: 03-21-[address] Umm Mario MD Work Phone: -[facility] Start: 03-17-2025 End: 03-17-2025 Dr. Denzel Chau MD -Emergency [facility] t Work Phone: Start: 03-17-2025 End: 03-17-2025 Emergency department patient visit Dr. Umm Mario MD Work Phone: -Emergency Department Work Phone: Start: 03-17-2025 End: 03-17-2025 Hai Rand DO -Emergency Departmen t Work Phone: Start: 03-17-2025 End: 03-17-2025 Emergency department patient visit Dr. Umm Mario MD Work Phone: -Emergency Department Work Phone: Start: 03-14-2025 End: 03-14-[address] Umm Mario MD Work Phone: -Laboratory [facility] Start: 03-14-2025 End: 03-14-2025 Patient encounter procedure Gretchen Nguyen CASTING MACHINE OPERATOR HELPER-C -[facility] Start: 03-14-2025 End: 03-14-2025 Gretchen Nguyen CASTING MACHINE OPERATOR HELPER-C -[facility] Start: 03-14-2025 End: 03-14-2025 ambulatory Gretchen Nguyen CASTING MACHINE OPERATOR HELPER Facility:[facility] Start: 03-10-2025 End: 03-10-2025 Dr. Rolan Rubio -Emergency Departmen t Work Phone: Start: 03-10-2025 End: 03-10-2025 Emergency department patient visit Dr. Umm Mario MD Work Phone: -Emergency Department Work Phone: Start: 03-07-2025 End: 03-07-[address] Umm Mario MD Work Phone: [facility] Work Phone: Start: 03-07-2025 End: 03-07-2025 Patient encounter procedure Gretchen Nguyen CASTING MACHINE OPERATOR HELPER-C -Laboratory Work Phone: Start: 03-07-2025 End: 03-07-2025 Gretchen Nguyen CASTING MACHINE OPERATOR HELPER-C -Laboratory Work Phone: Start: 03-07-2025 End: 03-07-2025 ambulatory Umm Mario Facility:[facility] Start: 03-05-2025 Non-patient / Non-visit Dr. Woody Montana MD -[facility] Work Phone: Start: 03-05-2025 Patient encounter procedure Gretchen Nguyen CASTING MACHINE OPERATOR HELPER-C -Pulmonary Services/Neurology Work Phone: Start: 03-05-2025 Dr. Woody Montana MD -[facility] Work Phone: Start: 03-05-2025 ambulatory Woody Montana Fa cility:[facility] Start: 02-19-2025 End: 02-19-2025 Patient encounter procedure Gretchen Nguyen NP-[facility] -[facility] Work Phone: Start: 02-19-2025 End: 02-19-2025 Gretchen Nguyen NP-[facility] -[facility] Work Phone: Start: 02-19-2025 End: 02-19-[address] Umm Mario MD Work Phone: [facility] Work Phone: Start: 02-14-2025 End: 02-14-[address] Umm Mario MD -[facility] Work Phone: Start: 02-14-2025 End: 02-14-2025 Dr. Umm Mario MD -[facility] Work Phone: Start: 02-14-2025 End: 02-14-[address] Umm Mario MD Work Phone: [facility] Work Phone: Start: 02-14-2025 End: 02-14-2025 ambulatory Umm Mario Facility:[facility] Start: 01-14-2025 End: 01-14-2025 Patient encounter procedure Shawn Shea MD Work Phone: Ophthalmology Comment on above: 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, severe stage (Primary Dx) Start: 01-14-2025 End: 01-14-2025 ambulatory SHAWN SHEA Facility:[facility] Start: 01-02-2025 End: 01-02-[address] Umm Mario MD Work Phone: [facility] Work Phone: Start: 01-02-2025 End: 01-02-2025 Patient encounter procedure Dr. Umm Mario MD -Radiology, [facility] Work Phone: Start: 01-02-2025 End: 01-02-2025 ambulatory [facility] Facility:[facility] Start: 12-31-2024 Encounter for antibo dy response examination [facility] Start: 12-27-2024 End: 12-27-[address] Umm Mario MD Work Phone: [facility] Work Phone: Start: 12-27-2024 End: 12-27-[address] Umm Mario MD -Laboratory, [place] Start: 12-27-2024 End: 12-27-2024 ambulatory [facility] Facility:[facility] Start: 12-19-[address] Umm Mario MD Work Phone: [facility] Start: 12-14-2024 End: 12-14-2024 Patient encounter procedure Ailin Sharma NP-C -[facility] Work Phone: Start: 12-14-2024 End: 12-14-2024 ambulatory [facility] Facility:[facility] Start: 11-30-2024 End: 11-30-2024 ambulatory [facility] Start: 11-30-2024 End: 11-30-[address] 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 Umm Mario MD -[facility] Work Phone: Start: 11-15-2024 End: 11-15-[address] Umm Mario MD Work Phone: [facility] Work Phone: Start: 11-15-2024 End: 11-15-2024 ambulatory [facility] Facility:[facility] Start: 10-23-2024 End: 10-23-2024 Patient encounter procedure Ava LUEVANO -[facility] Work Phone: Start: 10-23-2024 End: 10-23-2024 ambulatory [facility] Facility:[facility] Start: 10-03-2024 End: 10-03-2024 Telephone encounter Shawn Shea MD Work Phone: Ophthalmology Comment on above: follow up from 08/08 25 Start: 08-15-2024 End: 08-15-[address] Umm Mario MD -[facility] Work Phone: Start: 08-15-2024 End: 08-15-2024 [facility] Start: 08-14-2024 End: 08-15-2024 ambulatory PRIYA SALEH Facility:[facility] Start: 08-14-2024 End: 08-14-2024 Patient encounter procedure [...] Start: 07-30-2024 End: 07-30-2024 ambulatory MANUEL LOGAN Facility:[facility] Start: 07-30-2024 End: 07-30-2024 Patient encounter procedure Shawn Shea MD Work Phone: Ophthalmology Comment on above: 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, severe stage Start: 05-15-2024 End: 05-15-2024 Telephone encounter Shawn Shea MD Work Phone: Ophthalmology Comment on above: Follow Up Start: 03-14-2024 Telephone encounter Lucina CUENCA W Ophthalmology Comment on above: Consult to [facility] Work Start: 03-12-2024 End: 03-12-2024 Patient encounter procedure Shawn Shea MD Work Phone: Ophthalmology Comment on above: 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 Umm Mario Work Phone: [facility] Work Phone: Start: 12-21-2023 End: 12-21-2023 Admission to same day surgery center Dr. Umm Mario Work Phone: [facility]-Surgical Day Care Start: 12-21-2023 End: 12-21-[address] Umm Mario Work Phone: [facility] Work Phone: Start: 12-08-2023 End: 01-01-2024 Evaluation and management of inpatient [facility]mm [facility] Start: 12-08-2023 Non-patient / Non-visit Dr. Umm Mario Work Phone: [facility] Work Phone: Start: 12-07-2023 Non-patient / Non-visit Dr. Umm Mario Work Phone: [facility] Work Phone: Start: 12-06-2023 Non-patient / Non-visit Dr. Umm Mario Work Phone: [facility] Work Phone: Start: 12-06-2023 Non-patient / Non-visit Dr. Umm Mario Work Phone: [facility] Start: 12-05-2023 Non-patient / Non-visit Dr. Umm Mario Work Phone: [facility] Work Phone: Start: 12-05-2023 Non-patient / Non-visit Dr. Umm Mario Work Phone: [facility] Start: 12-04-2023 Non-patient / Non-visit Dr. Umm Mario Work Phone: [facility] Work Phone: Start: 12-03-2023 Non-patient / Non-visit Dr. Umm Mario Work Phone: [facility] Work Phone: Start: 12-03-2023 Non-patient / Non-[facility] Umm Mario [facility] Start: 12-02-2023 Non-patient / Non-visit Dr. Umm Mario Work Phone: [facility] Work Phone: Start: 12-02-2023 End: 12-08-2023 Evaluation and management of inpatient Dr. 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 Umm Mario Work Phone: [facility] Work Phone: Start: 10-17-2023 End: 10-17-[address] Umm Mario Work Phone: [facility]-Pulmonary Services/Neurology Work Phone: Start: 09-02-2023 Telephone encounter Shawn Shea MD Work Phone: Ophthalmology Start: 08-15-2023 End: 08-15-[address] Umm Mario Work Phone: [facility] Internal Medicine Work Phone: Start: 07-04-2023 End: [...] bilateral Start: 04-30-2023 End: 04-30-[address] Umm Mario Work Phone: [facility] Work Phone: Start: 04-30-2023 End: 04-30-[address] Umm Mario Work Phone: [facility] Work Phone: Start: 04-28-2023 End: 04-28-[address] Umm Mario Work Phone: [facility] Internal Medicine Work Phone: Start: 04-22-2023 End: 04-22-2023 Emergency department patient [facility]mm [facility] Start: 04-12-2023 End: 04-12-[address] Umm Mario Work Phone: [facility] Work Phone: Start: 03-25-2023 End: 03-25-2023 Emergency department patient [facility] Dr[facility] Umm Mario [facility] Start: 03-24-2023 End: 03-24-[address] Umm Mario Work Phone: [facility] Internal Medicine Work Phone: Start: 03-23-2023 End: 03-23-[address] Umm Mario Work Phone: [facility]-Laboratory, [place] Start: 03-21-2023 End: 03-21-2023 Emergency department patient visit Dr. Umm Mario Work Phone: [facility]-Emergency Department Work Phone: Start: 03-12-2023 End: 03-12-2023 Emergency department patient visit Dr. Umm Mario Work Phone: [facility]-Emergency Department Start: 01-24-2023 End: 01-24-[address] Umm Mario Work Phone: [facility] Start: 01-22-2023 End: 01-22-2023 Emergency department patient visit Dr. Umm Mario Work Phone: [facility]-Emergency Department Start: 12-29-2022 End: 12-29-[address] Umm Mario Work Phone: [facility] Internal Medicine Start: 11-03-2022 End: 11-03-[address] Umm Mario [facility] Start: 10-14-2022 Non-patient / Non-visit Dr. Umm Mario Work Phone: [facility] Start: 10-14-2022 End: 10-14-[address] Umm Mario Work Phone: [facility] Work Phone: Start: 10-14-2022 End: 10-14-[address] Umm Mario Work Phone: [facility]-Cardiovascular Services Start: 10-05-2022 End: 10-05-[address] Umm Mario Work Phone: [facility] Start: 09-08-2022 End: 09-08-[address] Umm Mario Work Phone: [facility]-Laboratory, Specimen Start: 09-08-2022 End: 09-08-[address] Umm Mario Work Phone: [facility] Internal Medicine Start: 09-04-2022 End: 09-04-[address] Umm Mario Work Phone: [facility] Work Phone: Start: 09-04-2022 End: 09-04-[address] Umm Mario Work Phone: [facility]-Laboratory Start: 08-27-2022 End: 08-27-[address] Umm Mario Work Phone: [facility] Internal Medicine Start: 08-24-2022 End: 08-24-2022 Emergency department patient visit Dr. Umm Mario Work Phone: [facility]-Emergency Department Start: 08-04-2022 End: 08-04-[address] Umm Mario Work Phone: [facility] Work Phone: Start: 08-04-2022 End: 08-04-[address] [facility]mm [facility] Start: 08-04-2022 End: 08-04-[address] Umm Mario Work Phone: [facility] Internal Medicine Start: 07-10-2022 Refill Tristan Montana MD Work Phone: [facility] Cardiology Comment on above: Refill Request Start: 05-06-2022 End: 05-06-[address] Umm Mario Work Phone: [facility] Start: 12-11-2021 End: 12-11-[address] Umm Mario [facility] Start: 12-03-2021 End: 12-03-[address] Umm Mario Work Phone: [facility]-Laboratory Start: 12-03-2021 End: 12-03-[address] Umm Coronado Phone: [facility] Start: 11-30-2021 End: 11-30-[address] Umm Coronado Phone: [facility] Start: 11-12-2021 End: 11-12-[address] Umm Coronado [facility] Start: 11-11-2021 End: 11-11-[address] Umm Mario Work Phone: [facility] Internal Medicine Start: 10-15-2021 End: 10-15-[address] Umm Coronado Phone: [facility] Internal Medicine Start: 09-23-2021 End: 09-23-[address] Umm Coronado [facility] Start: 08-18-2021 End: 08-18-[address] Umm Coronado Phone: [facility] Start: 08-17-2021 Non-patient / Non-visit Dr. Umm Mario Work Phone: [facility] Start: 08-17-[address] Umm Coronado Phone: [facility]-Cardiovascular Services Start: 12-22-2014 Patient encounter procedure Tristan Montana MD Work Phone: [facility] Procedures Date Procedure Procedure Detail Performing Clinician Start: 07-05-[address] Sonny Mario MD Work Phone: Start: 07-05-2025 Antibody to centrome re measurement Dr. Umm Mario MD Work Phone: Start: 07-05-2025 Antibody to extracta ble nuclear antigen measurement Dr. Umm Mario MD Work Phone: Start: 07-05-2025 Antibody to SOLOMON-[address] Umm Mario MD Work Phone: Start: 07-05-2025 Antibody to lupus La protein measurement Dr. Umm Mario MD Work Phone: Start: 07-05-2025 Antibody to SS-A measurement Dr. Umm Mario MD Work Phone: Start: 07-05-[address] Umm Mario MD Work Phone: Start: 07-05-2025 Calculation of international normalized ratio Dr. Umm Mario MD Work Phone: Start: 07-05-2025 Mean corpuscular hemoglobin concentration determination Dr. Umm Mario MD Work Phone: Start: 07-05-[address] Aleah Mario MD Work Phone: Start: 07-05-2025 Nucleated red blood cell count procedure Dr. Umm Mario MD Work Phone: Start: 07-05-2025 Platelet mean volume determination Dr. Umm Mario MD Work Phone: Start: 07-05-[address] Thiago Mario MD Work Phone: Start: 07-05-2025 TILE PICKER antibody measurement Dr. Umm Mario MD Work Phone: Start: 07-05-2025 Total cholesterol:HD L ratio measurement Dr. Umm Mario MD Work Phone: Start: 07-05-[address] Umm Mario MD Work Phone: Start: 07-05-2025 Vitamin D, 25-hydrox y measurement Dr. Umm Mario MD Work Phone: Start: 05-27-2025 Computerized ophthal jacoby imaging optic nerve Shawn Shea MD Work Phone: Start: 05-20-2025 Urine microscopy: re d cells Dr. Umm Mario MD Work Phone: Start: 05-20-2025 Urnls dip stick/tabl et reagent auto microscopy Dr. Umm Mario MD Work Phone: Start: 05-20-2025 Blood count smear mc rscp w/mnl difrntl wbc count Dr. Umm Mario MD Work Phone: Start: 05-20-2025 Calculation of international normalized ratio Dr. Umm Mario MD Work Phone: Start: 05-20-[address] Umm Mario MD Work Phone: Start: 05-20-2025 Mean corpuscular hemoglobin concentration determination Dr. Umm Mario MD Work Phone: Start: 05-20-[address] Aleah Mario MD Work Phone: Start: 05-20-2025 Nucleated red blood cell count procedure Dr. Umm Mario MD Work Phone: Start: 05-20-2025 Platelet mean volume determination Dr. Umm Mario MD Work Phone: Start: 05-20-2025 CT angiography of he ad and neck Dr. Umm Mario MD Work Phone: Start: 05-20-2025 CT of head without contrast Dr. Umm Mario MD Work Phone: Start: 05-20-2025 Plain chest X-ray Dr. Maria Del Carmen Mario MD Work Phone: Start: 05-14-2025 Ecg routine ecg w/le ast 12 lds w/i&r Corina Nguyen MD Work Phone: Start: 05-08-2025 Mean corpuscular hemoglobin concentration determination Dr. Umm Mario MD Work Phone: Start: 05-08-2025 Platelet mean volume determination Dr. Umm Mario MD Work Phone: Start: 03-10-2025 X-ray of foot, three or more views Dr. Umm Mario MD Work Phone: Start: 02-14-2025 Blood count smear mc rscp w/mnl difrntl wbc count Dr. Umm Mario MD Work Phone: Start: 02-14-2025 Mean corpuscular hemoglobin concentration determination Dr. Umm Mario MD Work Phone: Start: 02-14-2025 Nucleated red blood cell count procedure Dr. Umm Mario MD Work Phone: Start: 02-14-2025 Platelet mean volume determination Dr. Umm Mario MD Work Phone: Start: 01-02-[address] Thiago Mario MD Work Phone: Start: 11-26-2024 Computerized ophthal jacoby imaging optic nerve Shawn Shea MD Work Phone: Start: 11-15-2024 Total iron binding capacity measurement Dr. Umm Mario MD Work Phone: Start: 07-30-2024 Visual field xm uni/ bi w/interp extended exam Shawn Shea MD Work Phone: Start: 03-14-2024 CONSULT TO [employer] WORK Shawn Shea MD Work Phone: Start: 03-12-2024 Computerized ophthal jacoby imaging optic nerve Shawn Shea MD Work Phone: Start: 12-21-2023 Fluoroscopic guidance Ashia Mario Work Phone: Start: 12-10-[address] Josias Mario Work Phone: Start: 12-07-2023 Fluoroscopic guidance Ashia Mario Work Phone: Start: 12-07-2023 Insertion of stent i nto ureter Dr. Umm Mario Work Phone: Start: 12-06-2023 CT of abdomen and pe lvis without contrast Dr. Umm Mario Work Phone: Start: 12-06-[address] Aleah Mario Work Phone: Start: 12-03-2023 Plain X-ray of femur Dr Luke Mario Work Phone: Start: 12-02-2023 CT of head without contrast Dr. Umm Mario Work Phone: Start: 12-02-2023 Bacteria identified in Blood by Culture Dr. Umm Mario Work Phone: Start: 12-02-2023 SARS-CoV-2, Influenz a & RSV (PCR) Dr. Umm Mario Work Phone: Start: 12-02-2023 Urine culture [...] SARS-CoV-2 & FLU Ant igen (Rapid) Dr. Umm Mario Work Phone: Start: 01-22-2023 Plain x-ray of wrist Dr Luke Mario Work Phone: Start: 11-30-2021 Radiologic examinati on of knee Dr. Umm Mario Work Phone: Start: 01-07-2013 End: 11-02-2016 History of placement of stent for coronary artery disease S/P coronary artery stent placement Shawn Shea MD Work Phone: Measurement of occul t blood in stool specimen using immunoassay Dr. Umm Mario Work Phone: Measurement of occul t blood in stool specimen using immunoassay Dr. Umm Mario Work Phone: Plan of Treatment Date Care Activity Detail Author Start: 06-06-2030 Urine microalbumin profile DTaP,Tdap,Td Vaccine (2 - Td or Tdap) [facility] Start: 01-29-2026 End: 07-08-2026 OCT OPTIC NERVE CIRRUS OU (BOTH EYES) OCT OPTIC NERVE CIRRUS OU (BOTH EYES) [facility] Imaging Routine Primary open angle glaucoma (POAG) of both eyes, severe stage Expected: 01/29/2026, Expires: 07/08/2026 [facility] Work Phone: Comment on above: Expected: 01/29/2026, Expires: Start: 12-11-2025 End: 05-20-2026 OCT OPTIC NERVE CIRRUS OU (BOTH EYES) OCT OPTIC NERVE CIRRUS OU (BOTH EYES) [facility] Imaging Routine Primary open angle glaucoma (POAG) of both eyes, severe stage Expected: 12/11/2025, Expires: 05/20/2026 [facility] Work Phone: Comment on above: Expected: 12/11/2025, Expires: Start: 09-30-2025 End: 09-30-2025 Patient encounter procedure 09/30/2025 2:00 PM EST Office Visit [facility] [address] [place] [address] Shawn Shea MD [address] [place] [address] Diagnostics, [facility] [address] [address] Return in about 4 months (around 09/26/2025) for VF AND OCT . Ophthalmology Comment on above: Return in about 4 months (around ) for VF AND OCT . Start: 08-14-2025 End: 01-21-2026 OCT OPTIC NERVE CIRRUS OU (BOTH EYES) OCT OPTIC NERVE CIRRUS OU (BOTH EYES) [facility] Imaging Routine Primary open angle glaucoma (POAG) of both eyes, severe stage Expected: 08/14/2025, Expires: 01/21/2026 [facility] Work Phone: Comment on above: Expected: 08/14/2025, Expires: Start: 07-05-2025 Procedure [facility] Start: 07-05-2025 End: 07-05-2025 -[place] [facility] Work Phone: Start: 06-17-2025 End: 06-17-2025 -[facility] Work Phone: Start: 06-03-2025 End: 06-03-2025 Patient encounter procedure Ophthalmolog y Comment on above: Return in about 6 months (around 05/29/20 25) for OCT OU. Start: 05-27-2025 End: 05-27-2025 Patient encounter procedure 05/27/2025 10:15 AM EDT Office Visit [facility] [address] [place] [address] Shawn Shea MD [address] [place] [address] Diagnostics, [facility] [address] [address] Return in about 6 months (around 05/29/2025) for OCT OU. Ophthalmology Comment on above: Return in about 6 months (around 05/29/20) for OCT OU. Start: 05-20-2025 End: 05-20-2025 [facility] Start: 05-20-2025 Influenza vaccination Influenza Vaccine (#1) [facility] Start: 05-20-2025 [facility] Start: 03-27-2025 End: 09-03-2025 VISUAL FIELD 24-2 OU (BOTH EYES) VISUAL FIELD 24-2 OU (BOTH EYES) [facility] Imaging Routine Primary open angle glaucoma (POAG) of both eyes, severe stage Expected: 03/27/2025, Expires: 09/03/2025 [facility] Work Phone: Comment on above: Expected: 03/27/2025, Expires: Start: 03-21-2025 End: 03-21-2025 Evaluation of diagnostic study results [facility] Start: 03-17-2025 Control nasal hemorrhage anterior simple [facility] Start: 03-17-2025 [facility] Start: 03-10-2025 [facility] Start: 02-19-2025 Evaluation of diagnostic study results [facility] Start: 02-14-2025 CBC W Auto Differential panel - Blood [facility] Start: 02-14-2025 Comprehensive metabolic 2000 panel - Serum or Plasma [facility] Start: 02-14-2025 Magnesium measurement [facility] Start: 02-14-2025 T4 free measurement [facility] Start: 02-14-2025 Thyroid stimulating hormone measurement [facility] Start: 12-23-2024 Covid-19 Vaccine ( season) Covid-19 Vaccine () [facility] Start: 11-26-2024 End: 11-26-2024 Patient encounter procedure 11/26/2024 2:00 PM EDT Office Visit [facility] [address] [place] [id number] Shawn Shea MD [address] [place] [address] Return in about 4 months (around 11/27/2024) for OCT OU. Ophthalmology Comment on above: Return in about 4 months (around 11/28/19 25) for OCT OU. Start: 11-21-2024 End: 04-30-2025 OCT OPTIC NERVE CIRRUS OU (BOTH EYES) OCT OPTIC NERVE CIRRUS OU (BOTH EYES) [facility] Imaging Routine Primary open angle glaucoma (POAG) of both eyes, severe stage Expected: 11/21/2024, Expires: 04/30/2025 [facility] Work Phone: Comment on above: Expected: 11/21/2024, Expires: Start: 09-24-2024 End: 09-24-2024 Patient encounter procedure 09/24/2024 1:30 PM EST Office Visit [facility] [address] [place] [address] Shawn Shea MD [address] [facility] [place] [address] Return in about 6 months (around 09/11/2024) for VF . Ophthalmology Comment on above: Return in about 6 months (around 024) for VF . Start: 09-19-2024 Advance Directive Discussion Advance Directive Discussion [facility] Start: 09-19-2024 Medicare Advantage Annual Wellness Visit Medicare Advantage Annual Wellness Visit [facility] Start: 07-30-2024 End: 07-30-2024 Patient encounter procedure 07/30/2024 2:00 PM EST Office Visit [facility] [address] [place] [address] Shawn Shea MD [address] [facility] [place] [address] Return in about 6 months (around 05/07/2024) for OCT OU. Ophthalmology Comment on above: Return in about 6 months (around 05/07/20) for OCT OU. Start: 06-15-2024 End: 11-22-2024 PACHYMETRY OU (BOTH EYES) PACHYMETRY OU (BOTH EYES) [facility] Imaging Routine Primary open angle glaucoma (POAG) of both eyes, severe stage Expected: 06/15/2024, Expires: 11/22/2024 [facility] Work Phone: Comment on above: Expected: 06/15/2024, Expires: Start: 06-15-2024 End: 11-22-2024 VISUAL FIELD 24-2 OU (BOTH EYES) VISUAL FIELD 24-2 OU (BOTH EYES) [facility] Imaging Routine Primary open angle glaucoma (POAG) of both eyes, severe stage Expected: 06/15/2024, Expires: 11/22/2024 [facility] Work Phone: Comment on above: Expected: 06/15/2024, Expires: Start: 05-20-2024 Influenza vaccination Influenza Vaccine (#1) [facility] Start: 05-07-2024 End: 05-07-2024 Patient encounter procedure 05/07/2024 2:00 PM EDT Office Visit [facility] [address] [place] [address] Shawn Shea MD [address] [place] [address] Return in about 6 months (around 05/07/2024) for OCT OU. Ophthalmology Comment on above: Return in about 6 months (around 05/07/20) for OCT OU. Start: 03-12-2024 End: 03-12-2024 Patient encounter procedure 03/12/2024 1:45 PM EDT Office Visit [facility] [address] [place] [address] Shawn Shea MD [address] [place] [address] date 03/12 Ophthalmology Comment on above: date 03/12 Start: 01-01-2024 Patient discharge [facility] Start: 12-30-2023 Blood chemistry [facility] Start: 12-22-2023 Referral to service [facility] Start: 12-21-2023 [facility] [facility] Start: 12-21-2023 Ambulation without limitation [facility] Start: 12-21-2023 Medication education [facility] Start: 12-21-2023 Taking patient vital signs [facility] Start: 12-21-2023 [facility] Start: 12-21-2023 Anes transurethral w/urethrocystoscopy nos ANESTH BLADDER SURGERY [facility] Start: 12-21-2023 Cysto w/ureteroscopy w/lithotripsy CYSTOURETERO W/LITHOTRIPSY [facility] Start: 12-15-2023 Speech therapy management [facility] Start: 12-15-2023 Speech therapy assessment [facility] Start: 12-09-2023 Development of care plan [facility] Start: 12-09-2023 Developing a treatment plan [facility] Start: 12-09-2023 [facility] Start: 12-08-2023 Verification routine [facility] Start: 12-08-2023 Following clinical pathway protocol [facility] Start: 12-08-2023 Admission procedure [facility] Start: 12-08-2023 Measuring intake and output [facility] Start: 12-08-2023 Patient referral to dietitian [facility] Start: 12-08-2023 Referral to occupational therapist [facility] Start: 12-08-2023 Referral to service [facility] Start: 12-08-2023 Vital signs measurements [facility] Start: 12-08-2023 [facility] Start: 12-08-2023 Patient discharge [facility] Start: 12-06-2023 Consultation [facility] Start: 12-06-2023 Patient referral [facility] Work Phone: Start: 12-05-2023 Notification of physician [facility] Start: 12-05-2023 Patient education [facility] Start: 12-05-2023 Provision of activity privileges [facility] Start: 12-05-2023 Pulse taking [facility] Start: 12-05-2023 Taking patient vital signs [facility] Start: 12-05-2023 Wound care [facility] Start: 12-05-2023 [facility] Start: 12-04-2023 Application of intermittent pneumatic compression device [facility] Start: 12-03-2023 Referral to occupational therapist [facility] Start: 12-03-2023 Referral to service [facility] Start: 12-03-2023 Inhalation therapy procedure [facility] Start: 12-02-2023 Following clinical pathway protocol [facility] Start: 12-02-2023 Ambulation without limitation [facility] Start: 12-02-2023 Assessment of risk of venous thromboembolism [facility] Start: 12-02-2023 Insertion of catheter into peripheral vein [facility] Start: 12-02-2023 Measuring intake and output [facility] Start: 12-02-2023 Providing care according to standard [facility] Start: 12-02-2023 Referral to vp informatics [facility] Start: 12-02-2023 Referral to service [facility] Start: 12-02-2023 [facility] Start: 12-02-2023 Admission procedure [facility] Start: 12-02-2023 Hospital admission, emergency, from emergency room, medical nature [facility] Start: 12-02-2023 Troponin I measurement [facility] Start: 12-02-2023 [facility] Start: 12-02-2023 Bacteria identified in Blood by Culture Blood Culture [facility] Start: 12-02-2023 Bacteria identified in Urine by Culture [facility] Start: 12-02-2023 End: 12-02-2023 Blood culture [facility] Start: 12-02-2023 [facility] Start: 11-29-2023 Covid-19 Vaccine () Covid-19 Vaccine () [facility] Start: 09-19-2023 Advance Directive Discussion Advance Directive Discussion [facility] Start: 09-19-2023 Behavioral Health Screening Behavioral Health Screening [facility] Start: 09-19-2023 Depression Assessment Depression Assessment [facility] Start: 05-20-2023 Covid-19 Vaccine ( season) Covid-19 Vaccine () [facility] Start: 05-20-2023 Influenza vaccination Influenza Vaccine (#1) [facility] Start: 04-22-2023 [facility] Start: 03-25-2023 Control nasal hemorrhage anterior simple CONTROL OF NOSEBLEED [facility] Start: 10-17-2022 Covid-19 Vaccine (6 - Moderna series) Covid-19 Vaccine (6 - Moderna series) [facility] Start: 09-19-2022 Advance Directive Discussion Advance Directive Discussion [facility] Start: 09-19-2022 Depression Assessment Depression Assessment [facility] Start: 05-20-2022 Influenza vaccination INFLUENZA (#1) [facility] Start: 09-19-2021 ADVANCE DIRECTIVE DISCUSSION ADVANCE DIRECTIVE DISCUSSION [facility] Start: 09-19-2021 DEPRESSION ASSESSMENT DEPRESSION ASSESSMENT [facility] Start: 09-22-2019 SHINGRIX VACCINE (3 of 3) SHINGRIX VACCINE (3 of 3) [facility] Start: 03-11-2019 DIABETES SCREEN DIABETES SCREEN [facility] Start: 03-11-2019 Diabetes Screening Diabetes Screening [facility] Start: 11-09-2017 Hepatitis B surface antibody level LDL Cholesterol [facility] Start: 05-25-2007 Urine microalbumin profile [facility] Start: 1997 Hepatitis B Vaccine (1 of 3 - Risk 3-dose series) Hepatitis B Vaccine (1 of 3 - Risk 3-dose series) [facility] Start: 02-21-1956 Hepatitis A Vaccine (1 of 2 - Risk 2-dose series) Hepatitis A Vaccine (1 of 2 - Risk 2-dose series) [facility] Start: 1955 Anxiety Screening Anxiety Screening [facility] Start: 1955 Depression Screening Depression Screening [facility] Start: 1955 Spirometry Spirometry [facility] Start: 1937 COVID-19 VACCINE (#1) COVID-19 VACCINE (#1) [facility] Alanine aminotransfe rase [Enzymatic activity/volume] in Serum or Plasma [facility] Albumin [Mass/volume ] in Serum or Plasma [facility] Alkaline phosphatase [Enzymatic activity/volume] in Serum or Plasma [facility] Ambulatory ECG [facility] Anion gap in Serum or Plasma [facility] Anion gap measurement [facility] Bilirubin, total measurement [facility] Blood chemistry [facility] BUN/Creatinine ratio [facility] BUN/Creatinine ratio [facility] Calcium [Mass/volume ] in Serum or Plasma [facility] Calcium [Mass/volume ] in Serum or Plasma [facility] Carbon dioxide, tota l [Moles/volume] in Central venous blood [facility] Carbon dioxide, tota l [Moles/volume] in Serum or Plasma [facility] CBC W Auto Different ial panel - Blood [facility] Work Phone: Chloride [Moles/volu me] in Serum or Plasma [facility] Complete blood count [facility] Complete blood count [facility] Comprehensive metabo lic 2000 panel - Serum or Plasma [facility] Creatinine [Mass/vol ume] in Serum or Plasma [facility] Creatinine [Moles/vo lume] in Serum or Plasma [facility] Electrocardiographic procedure [facility] Erythrocyte mean cor puscular volume determination [facility] Erythrocyte mean cor puscular volume determination [facility] Evaluation of diagno stic study results [facility] Folate [Mass/volume] in Serum or Plasma [facility] Work Phone: Glucose [Mass/volume ] in Serum or Plasma [facility] Glucose [Mass/volume ] in Serum or Plasma [facility] Hematocrit [Volume F raction] of Blood [facility] Hematocrit [Volume F raction] of Blood [facility] Hemoglobin [Mass/vol ume] in Blood [facility] Hemoglobin [Mass/vol ume] in Blood [facility] Leukocytes [#/volume ] in Blood [facility] Leukocytes [#/volume ] in Blood [facility] Liver stiffness by US.transient elastography [facility] Mean corpuscular hem oglobin concentration determination [facility] Mean corpuscular hem oglobin concentration determination [facility] Mean corpuscular hem oglobin determination [facility] Mean corpuscular hem oglobin determination [facility] Measurement of renal function [facility] Measurement of renal function [facility] Natriuretic peptide. B prohormone N-Terminal [Mass/volume] in Serum or Plasma [facility] Neutrophil count [facility] Neutrophil count [facility] Neutrophil percent differential count [facility] Neutrophil percent differential count [facility] End: 11-18-2026 OCT OPTIC NERVE CIRRUS OU (BOTH EYES) OCT OPTIC NERVE CIRRUS OU (BOTH EYES) OPHT Imaging Routine Primary open angle glaucoma (POAG) of both eyes, severe stage 1 Occurrences starting 05/27/2025 until 11/18/2026 [facility] Comment on above: 1 Occurrences starting 05/27/2025 until 11/18/2026 Patient Education [facility] Work Phone: Patient referral [facility] Work Phone: Platelets [#/volume] in Blood [facility] Platelets [#/volume] in Blood [facility] Potassium [Moles/vol ume] in Serum or Plasma [facility] Potassium measurement [facility] Red blood cell count [facility] Red blood cell count [facility] Red cell distributio n width determination [facility] Red cell distributio n width determination [facility] Serum chloride measurement [facility] Sodium [Moles/volume ] in Serum or Plasma [facility] Sodium measurement [facility] Thyroid stimulating hormone measurement [facility] Total protein measurement [facility] Troponin T.cardiac [Mass/volume] in Serum or Plasma by High sensitivity method [facility] Urea nitrogen [Mass/ volume] in Serum or Plasma [facility] Urea nitrogen [Mass/ volume] in Serum or Plasma [facility] US [facility] End: 11-18-2026 VISUAL FIELD 24-2 OU (BOTH EYES) VISUAL FIELD 24-2 OU (BOTH EYES) OPHT Imaging Routine Primary open angle glaucoma (POAG) of both eyes, severe stage 1 Occurrences starting 05/27/2025 until 11/18/2026 [facility] Work Phone: Comment on above: 1 Occurrences starting 05/27/2025 until 11/18/2026 Vitamin B12 measurement [facility] Work Phone: Vitamin B12 measurement [facility] Immunizations Immunization Date Immunization Notes Care Provider Kiana montoya 06-17-2025 Seasonal trivalent influenza vaccine, adjuvanted, preservative free Dr. Umm Mario MD Work Phone: [facility] 06-24-2024 Covid (Spikevax) Dr. Audrey Mario MD Work Phone: [facility] 06-14-2024 Seasonal trivalent influenza vaccine, adjuvanted, preservative free Dr. Umm Mario MD Work Phone: [facility] 06-14-2024 influenza virus vaccine, unspecified formulation Corina Nguyen MD Work Phone: [facility] 12-13-2023 Covid (Spikevax) Dr. Audrey Mario Work Phone: [facility] 07-31-2023 Covid (Spikevax) Dr. Audrey Mario Work Phone: [facility] 07-31-2023 Pneumococcal Vaccine PCV20 (Prevnar 20) Dr. Umm Mario Work Phone: [facility] 06-26-2023 influenza (aIIV4) vaccine, age 65+ yr, quadrivalent, PF (FLUAD QUAD) Corina Nguyen MD Work Phone: [facility] 06-26-2023 influenza, injectabl e, quadrivalent, preservative free Dr. Umm Mario Work Phone: [facility] 06-26-2023 RSV Adult Recombinan t (Arexvy) Dr. Umm Mario MD Work Phone: [facility] 06-26-2023 influenza virus vaccine, unspecified formulation hSawn Shea MD Work Phone: [facility] 06-17-2022 Covid Moderna Bivale nt Booster Dr. Umm Mario MD Work Phone: [facility] 05-25-2022 Influenza High-Dose Quadrivalent Dr. Umm Mario MD Work Phone: [facility] 05-25-2022 influenza virus vaccine, unspecified formulation Shawn Shea MD Work Phone: [facility] 01-06-2022 Covid (Moderna) Dr. Lacho Mario MD Work Phone: [facility] 07-26-2021 Covid (Moderna) Dr. Lacho Mario Work Phone: [facility] 06-23-[address] Umm Mario Work Phone: [facility] 06-23-2021 influenza, seasonal, injectable Corina Nguyen MD Work Phone: [facility] 06-23-2021 influenza, seasonal, injectable, preservative free Corina Nguyen MD Work Phone: [facility] 06-23-2021 Dr. Umm braga MD Work Phone: [facility] 11-26-2020 Covid (Moderna) Dr. Lacho Mario Work Phone: [facility] 10-30-2020 Covid (Moderna) Dr. Lacho Mario MD Work Phone: [facility] 10-24-2020 Covid (Moderna) Dr. Lacho Mario Work Phone: [facility] 06-06-2020 tetanus toxoid, redu korin diphtheria toxoid, and acellular pertussis vaccine, adsorbed Dr. Umm Mario Work Phone: [facility] 05-27-[address] Umm Mario Work Phone: [facility] 05-27-2020 influenza, seasonal, injectable Corina Nguyen MD Work Phone: [facility] 05-27-2020 influenza, seasonal, injectable, preservative free Corina Nguyen MD Work Phone: [facility] 05-27-2020 Dr. Umm braga MD Work Phone: [facility] 05-17-2020 influenza, high dose seasonal, preservative-free Dr. Umm Mario MD Work Phone: [facility] 07-28-2019 zoster vaccine recombinant Tristan Montana MD Work Phone: [facility] 07-09-2019 influenza, high dose seasonal, preservative-free Dr. Umm Mario MD Work Phone: [facility] 06-30-2018 influenza, high dose seasonal, preservative-free Dr. Umm Mario MD Work Phone: [facility] 06-29-2017 influenza, high dose seasonal, preservative-free Dr. Umm Mario MD Work Phone: [facility] 07-13-2016 influenza, high dose seasonal, preservative-free Tristan Montana MD Work Phone: [facility] 07-07-2016 influenza, injectabl e, quadrivalent, preservative free Dr. Umm Mario MD Work Phone: [facility] 07-07-2016 influenza, seasonal, injectable Corina Nguyen MD Work Phone: [facility] 06-10-2015 influenza, high dose seasonal, preservative-free Tritsan Montana MD Work Phone: [facility] 09-27-2014 pneumococcal conjuga te vaccine, 13 valent Tristan Montana MD Work Phone: [facility] 07-24-2014 influenza, injectabl e, quadrivalent, preservative free Dr. Umm Mario MD Work Phone: [facility] 07-24-2014 influenza, seasonal, injectable Tristan Montana MD Work Phone: [facility] 06-13-2013 influenza virus vaccine, unspecified formulation Tristan Montana MD Work Phone: [facility] 06-13-2012 influenza virus vaccine, unspecified formulation Tristan Montana MD Work Phone: [facility] 07-21-2010 zoster vaccine, live Guillermoapra melanie Montana MD Work Phone: [facility] 06-30-2010 influenza virus vaccine, whole virus Corina Nguyen MD Work Phone: [facility] 06-30-2010 influenza, injectabl e, quadrivalent, preservative free Dr. Umm Mario MD Work Phone: [facility] 09-08-2009 novel [id number], preservative-free, injectable Dr. Umm Mario MD Work Phone: [facility] 06-13-2009 influenza virus vaccine, whole virus Corina Nguyen MD Work Phone: [facility] 06-13-2009 influenza, injectabl e, quadrivalent, preservative free Dr. Umm Mario MD Work Phone: [facility] 08-23-2007 pneumococcal polysaccharide vaccine, 23 valent Tristan Montana MD Work Phone: [facility] 05-24-2007 tetanus and diphther ia toxoids, adsorbed, preservative free, for adult use (2 Lf of tetanus toxoid and 2 Lf of diphtheria toxoid) Tristan Montana MD Work Phone: [facility] 09-19-2001 pneumococcal polysaccharide vaccine, 23 valent Tristan Montana MD Work Phone: [facility] Payers Date Payer Category Payer Self-pay [id number] 2014 Medicare (Managed Care) PRIMETIM E [id number] 2014 Unknown PRIMETIME PRIMET ZACH HMO POS [id number] 2014-Present [phone] [address] [place] [address] HMO [id number] 2014 Unknown [id number] Unknown [id number] 2.16840.1.410432.3.579. 2.462 Unknown [id number] 2.840.1.154404.3.579. 2.462 Unknown [id number] 2.840.1.373988.3.579. 2.462 Unknown [id number] 2.840.1.412949.3.579. 2.462 Unknown [id number] 2.16840.1.849448.3.579. 2.462 Unknown [id number] 2.16840.1.412133.3.579. 2.462 Unknown [id number] 2.16840.1.462107.3.579. 2.462 Unknown [id number] 2.16840.1.718406.3.579. 2.462 Unknown [id number] 2.16840.1.574627.3.579. 2.462 Unknown [id number] 2.16.840.1.656532.3.579. 2.462 Unknown [id number] 2.16.840.1.727102.3.579. 2.462 Unknown [id number] 2.16.840.1.252623.3.579. 2.462 Unknown [id number] 2.16.840.1.460380.3.579. 2.462 Unknown [id number] 2.16.840.1.817674.3.579. 2.462 Unknown [id number] 2..840.1.404029.3.579. 2.462 Unknown [id number] 2..840.1.374084.3.579. 2.462 Unknown [id number] 2.840.1.851713.3.579. 2.462 Unknown [id number] 2.840.1.209042.3.579. 2.462 Unknown [id number] 2.840.1.946628.3.579. 2.462 Unknown [id number] 2..840.1.744516.3.579. 2.462 Unknown [id number] 2.840.1.342224.3.579. 2.462 Unknown [id number] 2..840.1.836453.3.579. 2.462 Unknown [id number] 2.840.1.160759.3.579. 2.462 Unknown [id number] 2.840.1.098792.3.579. 2.462 Unknown [id number] 2.16.840.1.695105.3.579. 2.462 Unknown [id number] 2.16.840.1.337550.3.579. 2.462 Unknown [id number] 2.16.840.1.797000.3.579. 2.462 Unknown [id number] 2.840.1.645523.3.579. 2.462 Unknown [id number] 2.16.840.1.704446.3.579. 2.462 Unknown [id number] 2.16.840.1.895001.3.579. 2.462 Unknown [id number] 2.16.840.1.601865.3.579. 2.462 Unknown [id number] 2.16.840.1.861591.3.579. 2.462 Unknown [id number] 2.16.840.1.075326.3.579. 2.462 Unknown [id number] 2.16.840.1.756841.3.579. 2.462 Social History Date Type Detail Facility Start: 12-03-2021 End: 12-27-2023 Tobacco smoking status FLIS Unknown if ever smoked [facility] Start: 02-12-2021 None [facility] Start: 06-11-2020 Spouse/ Signif icant Other [facility] Start: 02-12-2021 Non-smoker [facility] Start: 1935 Sex Assigned At Male [facility] Start: 11-02-2016 End: 05-27-2025 Tobacco smoking status NHIS Never smoked tobacco [facility] Work Phone: Start: 11-02-2016 End: 05-14-2025 Tobacco use and exposure Smokeless tobacco non-user [facility] Work Phone: Start: 11-22-2016 End: 05-27-2025 Alcohol intake Current drinker of alcohol (finding) [facility] Start: 11-02-2016 [facility] Start: 1935 Sex Assigned At Not on file [facility] Start: 06-01-2023 End: 05-07-2024 History of Social function [facility] Start: 06-01-2023 End: 05-07-2024 Tobacco use panel [facility] Start: 08-20-2012 National Score (1-100), lower number is lower risk 67 [facility] Start: 11-29-2024 End: 01-07-2025 Sex Male (finding) [facility] Medical Equipment Procedure Code Equipment [...] with retrograde pyelogram and ureteral stent insertion FDA Start: 12-07-2023 Cystoscopy, with retrograde pyelogram and ureteral stent insertion FDA Start: 12-07-2023 Cystoscopy, with retrograde pyelogram and ureteral stent insertion FDA Start: 12-07-2023 Cystoscopy, with retrograde pyelogram and ureteral stent insertion FDA Start: 12-07-2023 Cystoscopy, with retrograde pyelogram and ureteral stent insertion FDA Start: 12-07-2023 Cystoscopy, with retrograde pyelogram and ureteral stent insertion FDA Start: 12-07-2023 Cystoscopy, with retrograde pyelogram and ureteral stent insertion FDA Start: 12-07-2023 Goals Date Patient Goal Desired Activity /State Personal health goal Functional Status Date Assessment Result Facility 01-01-2024 Functional status Ambulates [facility] Work Phone: 12-27-2023 Functional status Chair [facility] Work Phone: 12-08-2023 Functional status Ambulates [facility] Work Phone: 04-22-2015 Are you deaf, or do you have serious difficulty hearing No 04/22/2015 11:41 AM Jason Tyson LPN [facility] 04-22-2015 Are you blind, or do you have serious difficulty seeing, even when wearing glasses No 04/22/2015 11:41 AM Jason Tyson LPN [facility] 04-22-2015 Do you have serious difficulty walking or climbing stairs No 04/22/2015 11:41 AM Jason Tyson LPN [facility] 04-22-2015 Do you have difficul ty dressing or bathing No 04/22/2015 11:41 AM Jason Tyson LPN [facility] 04-22-2015 Because of a physica l, mental, or emotional condition, do you have difficulty doing errands alone such as visiting a physician's office or shopping No 04/22/2015 11:41 AM Jason Tyson LPN No [facility] Mental Status Date Assessment Result Facility 05-20-2025 Cognitive function Voice/Name [facility] Work Phone: 01-01-2024 Cognitive function Voice/Name;Touch/Shaki ng [facility] Work Phone: 12-26-2023 Cognitive function Voice/Name;Touch/Shaki ng [facility] Work Phone: 12-22-2023 Cognitive function Appropriate;Cooperativ e [facility] Work Phone: 12-21-2023 Cognitive function Voice/Name [facility] Work Phone: 12-08-2023 Cognitive function Voice/Name [facility] Work Phone: 12-02-2023 Cognitive function Level Of Cons ciousness Awake;Alert;Appropriate;Fol lows Commands [facility] Work Phone: 03-12-2023 Cognitive function Level Of Cons ciousness Awake;Alert;Appropriate;Fol lows Commands [facility] Work Phone: 04-22-2015 Because of a physica l, mental, or emotional condition, do you have serious difficulty concentrating, remembering, or making decisions No 04/22/2015 11:41 AM Jason Tyson LPN No [facility] Clinical Notes 12-23-2015 to 07-25-2025 Note Date & Type Note Facility 07-25-2025 Note HNO ID: [id number] Author: SHELDON FRANKLIN RT(R) Service: Radiology Author Type: Associate Quality Engineer Type: Progress Notes Filed: 07/25/2025 13:49 Note Text: Radiology Service Progress Note DATE OF SERVICE: July 25, 2025 TIME: 1:48 PM PATIENT IDENTITY VERIFICATION COMPLETED USING TWO (2) STANDARD IDENTIFIERS: Name and Date of confirmed by patient verbally and Name and Date of confirmed by identification band. FALL SCREENING: Has the patient had 2 falls in the last year or 1 fall with injury or currently using an Ambulatory Assistive Device (Walker, Cane, Wheelchair, Crutches, etc.)? No PATIENT GENDER DATA: Assigned male at PATIENT RELEVANT IMPLANT DATA REVIEWED: Not Applicable PATIENT PRESENTS WITH AN IMPLANTABLE OR ATTACHED WASTE TREATMENT OPERATOR: No ALLERGIES: Reviewed and unchanged CONTRAST ALLERGY: NO. EXAM: CT -CONTRAST INDUCED NEPHROPATHY RISK FACTORS: Patient age > 60 years CREATININE: Creatinine Date Value Ref Range Status 03/11/2016 Test sent to [facility]. 0.70 - 1.40 mg/dL Final Comment: Account Credited HIDE 12/16/2015 Test sent to [facility]. 0.70 - 1.40 mg/dL Final Comment: Account Credited HIDE eGFR-All Other Races Date Value Ref Range Status 03/11/2016 Test sent to [facility]. . Final Comment: Account Credited HIDE eGFR- Date Value Ref Range Status 03/11/2016 Test sent to [facility]. Final Comment: Account Credited HIDE P.O.C.T. RESULTS: N/A July 25, 2025 TREATMENT: N/A PERIPHERAL IV DATA: Ambulatory: A peripheral IV was started in the Left antecubital site with a Angio cath: 18 gauge. RADIOLOGY DEPARTMENT: CT; Exam(s) Completed: CTA Chest. Anesthesia: No SIGNATURE: RT Braxton(R) PATIENT NAME: Jessee Rust DATE: July 25, 2025 TIME: 1:48 PM [facility] 07-05-2025 Progress note Note Date/Time July 05, 2025 3:08pm [facility] [address] [place] [address] OFFICE VISIT Date of Service: 07/05/25 MR#: [id number] Acct: [id number] Name: JESSEE RUST Rep #: [id number] : 1935 Provider: Dr. Soren Schmidt MD Age/Sex: 89/M [place] [facility] [place]: Signed HPI HPI History of Present Illness Details: Patient is a very pleasant 89-year-old white male who comes today for monitor ofhis cardiovascular status. Patient carries a history of paroxysmal atrial fibrillation coronary artery disease and aortic stenosis. Currently the patient is on oral anticoagulation therapy with Eliquis he does have a history of nuisance bleeding with nosebleeds. The patient was evaluated by Dr. Nguyen at [facility] May 14, 2025. The patient was not felt to be a candidate for ablation for his atrial fibrillation given the minimal symptoms. He was felt maddison a candidate for a Watchman device and is being evaluated for planned placement. The patient does have a complex past medical history patient was stented back [id number] to the LAD in 2016 he was cathed in November 2023 he had a 50% LAD stenosis proximal right coronary was 40% stenosed he had ostial right coronary is a 50% stenosis. He was treated medically. His echocardiogram at that time showed an EF of 45% with moderate aortic valve calcification 1+ AI and a mean gradient of 19 mmHg. The patient was evaluated in March 2025 in the office and was found to have a harsh systolic murmur radiating widely throughout the precordium and a repeat echocardiogram showed an EF of 55% moderate mitral valve regurgitation moderate tricuspid regurgitation with right ventricular systolic pressure estimated 45 and his aortic valve stenosis had worsened the mean peak gradient had increased from 19 to 31 mmHg. He does have moderate biatrial enlargement. Currently the patient is only aware when he is in atrial fibrillation by his iWatch. He does note that he has bradycardia at times with heart rates down in the 36 bpm but this is always in the nighttime when he is asleep. He denies anysyncope or near syncope denies any lightheadedness denies any exertional chest symptoms. He denies any dyspnea on exertion he is fairly active in his home environment he use a rolling walker. His has noted no change in his exercise tolerance over the last 6 months. The patient was evaluated in May 2025 in the emergency department with a CTA that showed a high-grade stenosis and a significant portion of the left vertebral artery with a minimal amount of retrograde filling. He had a dominantright vertebral artery with widely patent right vertebral and basilar artery theposterior right communicating artery was patent. There was no evidence of largevessel occlusion at the [facility]As. The patient was evaluated by Dr. Antonio Licona was not felt that any further evaluation or treatment was indicated at that time. 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 Is patient in pain?: No Allergies metoprolol (From Lopressor) Allergy (Intermediate, Verified 07/05/25 14:17) Shortness of breath bee venom protein (honey bee) (bee sting) Allergy (Mild, Verified 07/05/25 14:17) Swelling Penicillins Allergy (Verified 07/05/25 14:17) Rash baclofen Adverse Reaction (Intermediate, Verified 07/05/25 14:17) Other Medications ?Medication ?Instructions ?Recorded ?Confirmed ?Type Disability Placard #1 ea 12/01/21 07/05/25 Rx albuterol sulfate 90 mcg/actuation 2 puff inhalation Q 4H PRN Asthma 04/28/23 07/05/25 Rx aerosol inhaler (Ventolin HFA) #8.5 grams nebulizer and compressor (Portable #1 ea 04/30/2306/19 Rx Nebulizer System) netarsudil 0.02 %-latanoprost 1 drp ophthalmic (eye) Q HS Eye 12/02/23 07/05/25 History 0.005 % eye drops (Rocklatan) drops acetaminophen 500 mg tablet 1,000 mg (2 x 500 mg) PO Q 6H PRN 12/30/23 07/05/25 Rx PRN Pain Score 1-10 #0 tabs sennosides 8.6 mg-docusate sodium 1 tab-cap PO DAILY 0 01/23/24 07/05/25 History 50 mg tablet (Senokot-S) nitroglycerin 0.4 mg sublingual 0.4 mg sublingual Q5-1 5M PRN chest 05/01/24 07/05/25 Rx tablet pain #25 tabs finasteride 5 mg tablet 5 mg PO DAILY BPH #90 tabs 1 11/07/23 07/05/25 Rx famotidine 20 mg tablet 20 mg PO DAILY GERD #90 tabs 09/10/24 07/05/25 Rx potassium chloride 10 mEq 10 meq PO QDAY With Lasix #9 0 tabs 11/15/24 07/05/25 Rx tablet,extended release(part/cryst) brinzolamide 1 %-brimonidine 0.2 % 1 drp ophthalmic (e ye) DAILY 12/14/24 07/05/25 History eye drops,suspension (Simbrinza) budesonide-formoterol HFA 160 2 puff inhalation BID As thma #1 ea 06/17/25 07/05/25 Rx mcg-4.5 mcg/actuation aerosol inhaler (Symbicort) apixaban 5 mg tablet (Eliquis) 5 mg PO BID #60 tabs 07/05/25 Rx atorvastatin 40 mg tablet (Lipitor) 40 mg PO DAILY #90 tabs 06/26/25 07/05/25 Rx furosemide 20 mg tablet (Lasix) 20 mg PO QDAY #90 tabs 06/26/25 07/05/25 Rx ursodiol 500 mg tablet 500 mg PO TID 3 months #270 tabs 07/02/25 07/05/25 Rx Ejection fraction %: 55 Have you fallen in the past year?: No Nurse's Note: per patient, medications reviewed on portal [facility] Medical History Bradycardia Immunity status testing Sore [...] Essential hypertension 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 Cholelithiasis without obstruction Hyperlipidemia Surgical History History of nasal cauterization History of coronary artery stent placement History of colon resection History of cataract extraction Presence of stent in coronary artery History of appendectomy History of partial colectomy (~2003) Family History Father Hypertension Grandmother Hypertension Other Alcoholism Liver disease Primary biliary cirrhosis Social History household members: spouse Smoking Status: Never smoker alcohol intake: current alcohol intake frequency: holidays/special occasions only substance use type: does not use caffeine: No what type of physical activity do you participate in: weight training ROS Const Const: Negative for fatigue, weakness, headache(s) or frequent falls Eyes Eyes: Negative for blurry vision ENT ENT: Negative for headache(s), dizziness or Nosebleed/epistaxis Cardio Chest Pain: No Palpitations: No Edema: Bilateral and None Muscle aches with walking: None Resp Respiratory: Negative for SOB with activity, SOB at rest or SOB orthopnea\SOB lying down GI GI: Negative nausea, vomiting, heartburn, bright, red blood in stools or black,tarry stools : Negative for hematuria Neuro Neuro: Negative for dizziness, lightheadedness, near syncope, syncope, frequent falls, headache(s), weakness or blurry vision Endo Endo: Negative for fatigue Cardiology Exam Const Appearance: cooperative, healthy appearing, comfortable and no acute distress Head Head: normal to inspection Eyes General: appearance normal, both eyes and all related structures Neck Neck: normal visual inspection and no JVD Carotids: Negative bruit Chest Chest inspection: normal inspection of the chest Auscultation: Bilateral: Clear to Auscultation Cardio Rate: regular rate Rhythm: irregularly irregular Heart sounds: S1 normal, S2 normal and murmur; Negative rub or gallop Murmur: Grade 3/6, harsh and holosystolic Neuro General: patient alert and patient oriented x3 Extremities Lower Extremity Edema: None: Bilateral Psych Psychological: normal affect Supplemental Info Supplemental Information Labs: HDL Cholesterol, (40-) 51 mg/dL Cholesterol, (<=200) 107 mg/dL Triglycerides, (-199) 67 mg/dL Diagnostics: Electrocardiogram Echocardiogram Stress Test Stress Test Nuclear Medicine Cardiac Catheterization Chest X-Ray Abdomen Ultrasound Abdomen/Pelvis CT Pulmonary: Pulmonary Function Test Pulmonary Exercise Test Past Visits: Cardiology Visit Today Assessment and Plan Assessment and Plan (1) Paroxysmal atrial fibrillation: Status: Chronic Plan: Patient has a history of atrial fibrillation that is now pretty much constant byhis [place]. He is not aware when he is in atrial fibrillation he has no real symptoms. He remains at his same level of activity walking with a rolling walker. The patient does have a history of bradycardia but gets down in the 36 bpm range when he is asleep at night. He denies any syncope or near syncope. The patient also has no signs or symptoms of progressive critical . His mean gradient has increased from 19-31 over an 18 months timeframe. Last echocardiogram March 2025. Given the patient's nuisance bleeding he has been evaluated for Watchman device by Dr. Nguyen at [facility]. He is scheduled to complete his evaluation in July. (2) Aortic stenosis: Status: Chronic Qualifiers: Cardiac valve disease etiology: nonrheumatic Qualified Code(s): I35.0 -Nonrheumatic aortic (valve) stenosis Plan: Patient's mean gradient is increased to 31 mmHg. He does not have any symptoms at this point in time. He is minimally active walks with a rolling walker. Will follow him clinically and reevaluate his echocardiogram in March 2026. (3) Atherosclerosis of coronary artery of [place] heart without angina pectoris: Status: Chronic Qualifiers: Coronary Disease-Associated Artery/Lesion type: [place] artery QualifiedCode(s): I25.10 - Atherosclerotic heart disease of [place] coronary artery without angina pectoris Comment: 2.75 x 15 mm Promus to mid LAD, 3.0 x 12 mm Promus to proximal LAD 08/14/10; 2.5x 8 mm Xience Alpine FIDEL to mid LAD 11/15/16The patient's previous angina was a profound dyspnea on exertion. He denies any recurrence of the symptoms and is adamant that it is not consistent with the shortness of breath he is experiencing now which started with his COVID infection. Plan: Patient is status post remote stenting his last evaluation November 2023 he had a 50% LAD stenosis 40% and 50% in the proximal and ostial right respectively. EF known to be 45%. Patient denies any anginal type symptoms he is on Eliquis and has a history of nuisance bleeding he is not on aspirin. Plan 1. Patient will continue to follow-up with Dr. Nguyen for watchman evaluation and placement. 2. I really emphasized with him that he will not have to stay on oral anticoagulation therapy for 45 days after placement of the Watchman. 3. Patient was instructed about signs and symptoms of progressive aortic stenosis and to call us if any occur. 4. Will repeat his echocardiogram in March 2026 and as needed. I did discuss with him the possibility of TAVR. 5. Patient be reevaluated in our office in 6 months and as needed. Plan Details Additional Comments: This note was generated with [employer] software. It may contain incorrectwords, spelling, and punctuation that were not noted in checking the note beforesigning. Follow Up: 6 Months (With [facility]) 1 Year (With Dr. Schmidt) Coding Level of Care Code Off vis,est,level 4 Diagnoses Paroxysmal atrial fibrillation I48.0 Nonrheumatic aortic valve stenosis I35.0 Cardiac valve disease etiology: nonrheumatic Atherosclerosis of [place] coronary artery of [place] heart without angina pectoris I25.10 Coronary Disease-Associated Artery/Lesion type: [place] artery Coding Level of Care Code Off vis,est,level 4 Diagnoses Paroxysmal atrial fibrillation I48.0 Nonrheumatic aortic valve stenosis I35.0 Cardiac valve disease etiology: nonrheumatic Atherosclerosis of [place] coronary artery of [place] heart without angina pectoris I25.10 Coronary Disease-Associated Artery/Lesion type: [place] artery Clinical Quality Measures Falls Risk Screening/Assistive Devices Have you fallen in the past year?: No Cardiac Ejection fraction %: 55 07/05/25 1924 <Electronically signed by Odalis clayton MD> Date _ Odalis Flowers Signature: Date (if applicable) CC: ~ [facility] Work Phone: 1(993) 229-897110-14-2025 Progress note Author Jeffrey Berkowitz [facility] Note Date/Time July 02, 2025 2 :51pm [facility] [address] [place] [address] OFFICE VISIT Date of Service: 07/02/25 MR#: [id number] Acct: [id number] Name: JESSEE RUST Rep #: [id number] : 1935 Provider: Dr. Tiffani Berkowitz MD Age/Sex: 89/M [place] [facility] [place]: Signed Intake Vital Signs 05/08/25 10:21 06/24/25 14:50 07/02/25 14:02 Height 6 ft 6 ft 6 ft Weight: 220 lb BMI 29.8 BP 165/78 H Blood Pressure Location Rt brachial Position Sitting Pulse 58 L Pulse Oximetry (%) 96 Oxygen Delivery Method room air Intake Visit Reasons: PBC NEEDS REFILLS URSODOIL Chief Complaint: PBC Allergies metoprolol (From Lopressor) Allergy (Intermediate, Verified 07/02/25 13:58) Shortness of breath bee venom protein (honey bee) (bee sting) Allergy (Mild, Verified 07/02/25 13:58) Swelling Penicillins Allergy (Verified 07/02/25 13:58) Rash baclofen Adverse Reaction (Intermediate, Verified 07/02/25 13:58) Other Medications ?Medication ?Instructions ?Recorded ?Confirmed ?Type Disability Placard #1 ea 12/01/21 07/02/25 Rx albuterol sulfate 90 mcg/actuation 2 puff inhalation Q 4H PRN Asthma 04/28/23 07/02/25 Rx aerosol inhaler (Ventolin HFA) #8.5 grams nebulizer and compressor (Portable #1 ea 04/30/2306/19 Rx Nebulizer System) netarsudil 0.02 %-latanoprost 1 drp ophthalmic (eye) Q HS Eye 12/02/23 07/02/25 History 0.005 % eye drops (Rocklatan) drops acetaminophen 500 mg tablet 1,000 mg (2 x 500 mg) PO Q 6H PRN 12/30/23 07/02/25 Rx PRN Pain Score 1-10 #0 tabs sennosides 8.6 mg-docusate sodium 1 tab-cap PO DAILY 0 01/23/24 07/02/25 History 50 mg tablet (Senokot-S) nitroglycerin 0.4 mg sublingual 0.4 mg sublingual Q5-1 5M PRN chest 05/01/24 07/02/25 Rx tablet pain #25 tabs finasteride 5 mg tablet 5 mg PO DAILY BPH #90 tabs 1 11/07/23 07/02/25 Rx famotidine 20 mg tablet 20 mg PO DAILY GERD #90 tabs 09/10/24 07/02/25 Rx potassium chloride 10 mEq 10 meq PO QDAY With Lasix #9 0 tabs 11/15/24 07/02/25 Rx tablet,extended release(part/cryst) brinzolamide 1 %-brimonidine 0.2 % 1 drp ophthalmic (e ye) DAILY 12/14/24 07/02/25 History eye drops,suspension (Simbrinza) budesonide-formoterol HFA 160 2 puff inhalation BID As thma #1 ea 06/17/25 07/02/25 Rx mcg-4.5 mcg/actuation aerosol inhaler (Symbicort) apixaban 5 mg tablet (Eliquis) 5 mg PO BID #60 tabs 07/02/25 Rx atorvastatin 40 mg tablet (Lipitor) 40 mg PO DAILY #90 tabs 06/26/25 07/02/25 Rx furosemide 20 mg tablet (Lasix) 20 mg PO QDAY #90 tabs 06/26/25 07/02/25 Rx ursodiol 500 mg tablet 500 mg PO TID 3 months #270 tabs 07/02/25 07/02/25 Rx Have you fallen in the past year?: No PFSH Medical History Bradycardia Immunity status testing [...] Essential hypertension 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 Jeffrey Berkowitz MD) Father Hypertension Grandmother Hypertension Other Alcoholism Liver disease Primary biliary cirrhosis Social History household members: spouse Smoking Status: Never smoker alcohol intake: current alcohol intake frequency: holidays/special occasions only substance use type: does not use caffeine: No what type of physical activity do you participate in: weight training HPI HPI Chief Complaint: PBC Details: JESSEE RUST, is a 89 M who presents to the office today for initial consult. 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 Has been stable on Ursodiol 500mg BID. Previous GI Dr. Dr. Grant he cannot retired. Is stable on medication with no GI concerns. Needing someone to take over Ursodiol. Denies abdominal pain, GI bleed, jaundice, ascites. Has multiple other active chronic comorbidities including PAF, HF, mild aortic stenosis, CAD with leg swelling on low-dose Lasix and follows vp informatics Dr. Schmidt and Art General Dr. Amarilis Jackson Constitutional: No fatigue, fever(s), weakness or weight change ENT ENT: No difficulty swallowing Resp Respiratory: No shortness of breath or wheezing Cardio Cardiology: No chest pain at rest or dyspnea on exertion Gastro GI: No abdominal pain, belching, bloating, change in bowel habits, change in stool character, coffee ground emesis, constipation, cramping, diarrhea, heartburn, difficulty swallowing, feeling full early, excessive flatus, incontinent of stools, Vomiting blood/hematemesis, Blood in stool, loose stools,Black,tarry stools, nausea/dyspepsia, pain with swallowing, vomiting or other Genitourinary Male: No difficulty urinating or burning urination Musc Musculoskeletal: Positive for joint pain, back pain, stiffness, Arthritis and other (Uses wheeled walker, has rheumatoid arthritis, back pain.) Skin Skin: No yellowing of the eye or itchy eyes Neuro Neurology: No abnormal movements, behavioral changes, weakness or lack of coordination Psych Psychiatric: No anxiety, No behavioral changes and No depression Endo Endocrine: No fatigue or weight change Aller/Imm Allergy/Immunologic: No itchy eyes or wheezing Roberto/Lymp Hematologic/Lymphatic: No easy bleeding or easy bruising Exam Const General: cooperative, no acute distress and well developed Nutritional Appearance: overweight Orientation: alert, awake and oriented x3 Other: BMI 29.8 kg/m?. About 100 kg. May be some fluid rate from CHF HENMT Head: normocephalic and atraumatic Nose: external nose normal Face and sinus: normal facial exam Mouth: moist mucous membranes Eyes Pupils: PERRL EOM: EOM intact bilaterally Neck Neck: normal visual inspection, no meningeal signs and trachea midline Carotids: no bruits Chest Chest palpation & inspection: normal inspection of the chest Other: Air entry bilateral equal. COPD/asthma on Symbicort Resp Effort & Inspection: normal respiratory effort and symmetric chest movement Auscultation: Bilateral: Clear to Auscultation Cardio Palpation: normal PMI Rate: regular rate Rhythm: regular rhythm Heart Sounds: S1 normal and S2 normal Other: Systolic murmur right second ICS without carotid radiation, aortic stenosis GI Auscultation: normal bowel sounds Percussion: normal to percussion Palpation: soft, no hepatosplenomegaly and no guarding General: bimanual renal exam normal bilaterally, bladder normal to inspection and bladder normal to palpation Musc Musculoskeletal: No joint tenderness, joint redness, joint warmth or decreased range of motion Thoracic/Lumbar Spine: thor and lumb spine abnorm to inspection Other: Mild pedal edema. Uses wheeled walker. Has rheumatoid arthritis, lumbar, knee and hip arthritis Skin General: rashes and/or lesions noted, turgor normal and no erythema Wounds: wound noted Neuro General: patient alert, patient awake, patient oriented x3 and no focal motor deficits Speech: speech normal Motor: muscle tone normal throughout Extrem General: normal exam except as noted Psych Appearance: grossly normal Mood: congruent mood Affect: normal affect Attitude: cooperative Assessment and Plan Assessment and Plan (1) Primary biliary cirrhosis: Status: Chronic Plan: Patient came with verbal history of PBC on ursodiol 500 mg twice daily for 30 years was followed by outside GI in [place] who has retired. PCP sent here to refill ursodiol. For me, no formal evidence of PBC. Liver chemistry in May 13 in normal limitincluding ALP. INR 1.4 but patient on Eliquis 5 mg twice daily for PAF Patient has a history of autoimmune disease including RA and other family members also had history of RA and other autoimmune diseases Usual dose of ursodiol is about 13 mg/kg body weight therefore ursodiol dose increased to 500 mg 3 times daily At this time with his advanced age, his cardiac disease and other disease takes much more precedence over liver disease. he will be evaluated for Watchman device so that he can come out of Eliquis. He also follows international logistics analyst Dr. Beltran for COPD/asthma which is stable on Symbicort Comprehensive labs including PBC profile ordered. Liver ultrasound with elastography ordered. Patient wants to follow-up once in a year. Prescription for ursodiol sent to his pharmacy. Orders: Orders Comprehensive Metabolic Profil 3 Months E55.9 - Vitamin D deficiency, unspecified, J45.909 - Unspecified asthma, uncomplicated, K74.3 - Primary biliary cirrhosis CRP 3 Months E55.9 - Vitamin D deficiency, unspecified, J45.909 - Unspecified asthma, uncomplicated, K74.3 - Primary biliary cirrhosis Prothrombin Time w/INR 3 Months E55.9 - Vitamin D deficiency, unspecified, J45.909 - Unspecified asthma, uncomplicated, K74.3 - Primary biliary cirrhosis CBC W/Diff, Automated 3 Months E55.9 - Vitamin D deficiency, unspecified, J45.909 - Unspecified asthma, uncomplicated, K74.3 - Primary biliary cirrhosis JOHN w/ Reflex Mult Confirm 3 Months E55.9 - Vitamin D deficiency, unspecified, J45.909 - Unspecified asthma, uncomplicated, K74.3 - Primary biliary cirrhosis Vitamin D,25 Hydroxy 3 Months E55.9 - Vitamin D deficiency, unspecified, J45.909 - Unspecified asthma, uncomplicated, K74.3 - Primary biliary cirrhosis [facility] Misc. 3 Months E55.9 - Vitamin D deficiency, unspecified, J45.909 - Unspecified asthma, uncomplicated, K74.3 - Primary biliary cirrhosis [facility] Misc. 2 3 Months E55.9 - Vitamin D deficiency, unspecified, J45.909 - Unspecified asthma, uncomplicated, K74.3 - Primary biliary cirrhosis Bilirubin, Direct 3 Months E55.9 - Vitamin D deficiency, unspecified, J45.909 -Unspecified asthma, uncomplicated, K74.3 - Primary biliary cirrhosis Lipid Profile 3 Months E55.9 - Vitamin D deficiency, unspecified, E78.5 - Hyperlipidemia, unspecified, J45.909 - Unspecified asthma, uncomplicated, K74.3 - Primary biliary cirrhosis ABD Limited w/ Elastography 3 Months K74.3 - Primary biliary cirrhosis Medications: Changed From ursodiol 500 mg PO BID 180 tabs 1RF To ursodiol 500 mg PO TID 270 tabs 2RF 3 months Coding Level of Care Code New Pt Off vis,new,level 4 Patient Type New History Detailed Exam Detailed Medical Decision Making Moderate Complexity Diagnoses Primary biliary cirrhosis K74.3 Clinical Quality Measures Falls Risk Screening/Assistive Devices Have you fallen in the past year?: No 07/02/25 0537 <Electronically signed by Jeffrey Berkowitz MD> Date _ Jeffrey Berkowitz MD Cosigner Signature: Date (if applicable) CC: Dr. Umm Mario MD ~ [facility] Work Phone: 1(321) 508-704110-06-2025 Progress note Author Antonio Licona [facility] Note Date/Time June 24, 2025 3: 35pm [facility] [address] [place], [place] [address] OFFICE VISIT Date of Service: 06/24/25 MR#: [id number] Acct: [id number] Name: JESSEE RUST Rep #: [id number] : 1935 Provider: Dr. Antonio Licona MD Age/Sex: 89/M Location[place] [facility] [place] Status: Signed Intake Vital Signs 05/20/25 13:34 06/17/25 08:36 06/24/25 14:50 Height 6 ft 6 ft 6 ft Weight: 219 lb 220 lb BMI 29.7 29.8 BP 156/75 H 160/77 H Blood Pressure Location Lt brachial Rt brachial Position Sitting Sitting Respiration 18 Pulse 56 L 61 Pulse Source Monitor Monitor Temp 97.4 F L Pulse Oximetry (%) 99 97 Oxygen Delivery Method room air room air Intake Visit Reasons: Left Vertebral Artery Disease-ER FU Chief Complaint: HOSPITAL FU/REFERRAL Accompanied by: Allergies metoprolol (From Lopressor) Allergy (Intermediate, Verified 06/24/25 14:47) Shortness of breath bee venom protein (honey bee) (bee sting) Allergy (Mild, Verified 06/24/25 14:47) Swelling Penicillins Allergy (Verified 06/24/25 14:47) Rash baclofen Adverse Reaction (Intermediate, Verified 06/24/25 14:47) Other Medications ?Medication ?Instructions ?Recorded ?Confirmed ?Type Disability Placard #1 ea 12/01/21 06/24/25 Rx albuterol sulfate 90 mcg/actuation 2 puff inhalation Q 4H PRN Asthma 04/28/23 06/24/25 Rx aerosol inhaler (Ventolin HFA) #8.5 grams nebulizer and compressor (Portable #1 ea 04/30/2303/13 Rx Nebulizer System) netarsudil 0.02 %-latanoprost 1 drp ophthalmic (eye) Q HS Eye 12/02/23 06/24/25 History 0.005 % eye drops (Rocklatan) drops acetaminophen 500 mg tablet 1,000 mg (2 x 500 mg) PO Q 6H PRN 12/30/23 06/24/25 Rx PRN Pain Score 1-10 #0 tabs sennosides 8.6 mg-docusate sodium 1 tab-cap PO DAILY 0 01/23/24 06/24/25 History 50 mg tablet (Senokot-S) nitroglycerin 0.4 mg sublingual 0.4 mg sublingual Q5-1 5M PRN chest 05/01/24 06/24/25 Rx tablet pain #25 tabs finasteride 5 mg tablet 5 mg PO DAILY BPH #90 tabs 1 11/07/23 06/24/25 Rx famotidine 20 mg tablet 20 mg PO DAILY GERD #90 tabs 09/10/24 06/24/25 Rx potassium chloride 10 mEq 10 meq PO QDAY With Lasix #9 0 tabs 11/15/24 06/24/25 Rx tablet,extended release(part/cryst) brinzolamide 1 %-brimonidine 0.2 % 1 drp ophthalmic (e ye) DAILY 12/14/24 06/24/25 History eye drops,suspension (Simbrinza) ursodiol 500 mg tablet 500 mg PO BID #180 tabs 01/1806/24/25 Rx apixaban 5 mg tablet (Eliquis) 5 mg PO BID #60 tabs 06/24/25 Rx furosemide 40 mg tablet 40 mg PO DAILY 04/19/2503/13 History atorvastatin 40 mg tablet (Lipitor) 40 mg PO DAILY 30 days #30 tabs 05/20/25 06/24/25 Rx budesonide-formoterol HFA 160 2 puff inhalation BID As thma #1 ea 06/17/25 06/24/25 Rx mcg-4.5 mcg/actuation aerosol inhaler (Symbicort) Have you fallen in the past year?: No PFSH Medical History Bradycardia Immunity status testing [...] Essential hypertension 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 Cholelithiasis without obstruction Hyperlipidemia Surgical History History of nasal cauterization History of coronary artery stent placement History of colon resection History of cataract extraction Presence of stent in coronary artery History of appendectomy History of partial colectomy (~2003) Family History Father Hypertension Grandmother Hypertension Other Alcoholism Liver disease Social History household members: spouse Smoking Status: Never smoker alcohol intake: current alcohol intake frequency: holidays/special occasions only substance use type: does not use caffeine: No what type of physical activity do you participate in: weight training HPI HPI HPI: JESSEE RUST, is a 89 M who presents to the office today for evaluation of left vertebral artery occlusion seen on CTA as part of evaluation of stroke. His presenting symptoms were vague with some generalized transient confusion and fumbling for things with his hands that resolved within a few minutes. No numbness/weakness/vision loss speech difficulty. ROS General General: Yes fatigue; No weight change Musc Musculoskeletal: Yes back problems, arthritis and rheumatoid arthritis; No joint pain Cardio Cardiovascular: Yes murmur, heart disease, atrial fibrillation, high blood pressure and heart stent Psych Psychiatric: No depression or anxiety Resp Respiratory: Yes asthma Gastro Gastrointestinal: No abdominal pain, No diarrhea, No constipation and No black,tarry stools Roberto Hematologic: Yes blood thinners and Yes anemia Exam Const General: cooperative, healthy appearing, comfortable, no acute distress and welldeveloped Nutritional Appearance: well nourished Orientation: alert, awake and oriented x3 HENMT Head: normocephalic and atraumatic Ears: hearing grossly normal bilaterally Nose: external nose normal Eyes General: appearance normal, both eyes and all related structures EOM: EOM intact bilaterally Neck Neck: normal visual inspection, full ROM, no lymphadenopathy and trachea midline Thyroid: thyroid normal Lymphatic: no lymphadenopathy noted Resp Effort & Inspection: normal respiratory effort, able to speak in complete sentences, symmetric chest movement, no audible wheezes, not labored, no stridorand no use of accessory muscles Auscultation: clear to auscultation bilaterally Cardio Rate: regular rate Rhythm: abnormal rhythm irregularly irregular Heart Sounds: no murmurs Bruits: no carotid bruits Pulses: brachial pulses present and radial pulses present Skin General: no rashes or lesions noted and no erythema Wounds: no wounds Neuro Cranial Nerves: CN's II-XI intact bilaterally and EOM intact bilaterally Speech: speech normal Gait: normal gait Motor: strength 5/5 throughout Sensory Exam: no sensory deficits noted Psych Appearance: grossly normal and well kempt Mental Status: mental status grossly normal Mood: congruent mood Speech and Movement: speech and movement normal Thought Content: normal Judgment: judgment good Coding Level of Care Code Off vis,new,level 3 Diagnoses Occlusion of left vertebral artery I65.02 Laterality: left Assessment and Plan Assessment and Plan (1) Vertebral artery occlusion: Status: Chronic Qualifiers: Laterality: left Qualified Code(s): I65.02 - Occlusion and stenosis of left vertebral artery Comment: CTA- images reviewed, bilateral ICA with no significant stenosis, left vertebralartery V1 segment occlusion with distal reconstitution, large caliber right vertebral artery Plan: -CT suggests very long standing occlusion given caliber of right vertebral -no significant ICA disease -no further imaging at this time -return as needed Clinical Quality Measures Falls Risk Screening/Assistive Devices Have you fallen in the past year?: No 06/24/25 5522 <Electronically signed by Antonio Ang> Date _ Antonio Denise Signature: Date (if applicable) CC: ~ [facility] Work Phone: [phone]) 937-941409-29-2025 Progress note Author Ailin Sharma [facility] Note Date/Time June 17, 2025 3:27pm [facility] [address] [place] [address] OFFICE VISIT Date of Service: 06/17/25 MR#: [id number] Acct: [id number] Name: JESSEE RUST Rep #: [id number] : 1935 Provider: HUAN Sharma Age/Sex: 89/M Location[place] [facility] [place] Status: Signed Assessment and Plan Assessment and Plan (1) Asthma: Status: Chronic Qualifiers: Asthma severity: unspecified severity Asthma persistence: unspecified Asthma complication type: uncomplicated Qualified Code(s): J45.909 - Unspecified asthma, uncomplicated Plan: No signs of exacerbation of asthma today. No change in maintenance medications,he is symptomatically controlled with use of Symbicort. No additional testing at this time. Contact the office with any signs of new or worsening symptoms. Follow-up in 6 months. Annual influenza vaccination provided today. Orders: Orders Influenza Immunization Today Z23 - Encounter for immunization Medications: Refilled budesonide-formoterol 160-4.5 mcg/actuation (Symbicort) administer with spacer, rinse mouth after each use 2 puffs inhalation BID 1 ea 11RF Asthma Plan Details Additional Comments: This note was generated with [employer] dictation software. It may contain incorrectwords, spelling, and punctuation that were not noted in checking the note beforesigning. Portions of this documentation have been copied and pasted from previous office visit notes to provide a cohesive continuity of the history. The note has been reviewed, edited, and updated, as necessary. Follow Up: 6 Months HPI 6 m fu Chief Complaint: routine follow up HPI Comments Details: This patient presents to the office today for follow-up of asthma. He is ambulatory with use of a wheeled walker. He is on room air. He has not recently been seen in the ED or urgent care for any respiratory illness. He has not recently required the use of antibiotics or prednisone for breathing problems. He is a lifelong never smoker. He is compliant with Symbicort 2 puffs twice daily. He does report rinsing his mouth out after each use. He denies any medication side effect such as sore throat or thrush. He is compliant with cetirizine daily. He uses the antihistamine spring through fall. He has occasionally utilized his nebulizer for cough. He denies any shortness of breath. He denies any cough, sputum production or hemoptysis. He has occasional wheezing and chest tightness but denies any chestpain or palpitations. He has not had any fever, chills or body aches. Intake Vital Signs 12/14/24 08:21 06/17/25 08:36 Height 6 ft 6 ft Weight: 219 lb BMI 29.7 BP 156/75 H Blood Pressure Location Lt brachial Position Sitting Respiration 18 Pulse 56 L Pulse Source Monitor Temp 97.4 F L Temperature Source Temporal Artery Pulse Oximetry (%) 99 Oxygen Delivery Method room air Intake Visit Reasons: 6 m fu Chief Complaint: HOSPITAL FU/REFERRAL Accompanied by: Self Allergies metoprolol (From Lopressor) Allergy (Intermediate, Verified 06/17/25 14:50) Shortness of breath bee venom protein (honey bee) (bee sting) Allergy (Mild, Verified 06/17/25 14:50) Swelling Penicillins Allergy (Verified 06/17/25 14:50) Rash baclofen Adverse Reaction (Intermediate, Verified 06/17/25 14:50) Other Medications ?Medication ?Instructions ?Recorded ?Confirmed ?Type Disability Placard #1 ea 12/01/21 06/17/25 Rx albuterol sulfate 90 mcg/actuation 2 puff inhalation Q 4H PRN Asthma 04/28/23 06/17/25 Rx aerosol inhaler (Ventolin HFA) #8.5 grams nebulizer and compressor (Portable #1 ea 04/30/2305/21 Rx Nebulizer System) netarsudil 0.02 %-latanoprost 1 drp ophthalmic (eye) Q HS Eye 12/02/23 06/17/25 History 0.005 % eye drops (Rocklatan) drops acetaminophen 500 mg tablet 1,000 mg (2 x 500 mg) PO Q 6H PRN 12/30/23 06/17/25 Rx PRN Pain Score 1-10 #0 tabs sennosides 8.6 mg-docusate sodium 1 tab-cap PO DAILY 0 01/23/24 06/17/25 History 50 mg tablet (Senokot-S) nitroglycerin 0.4 mg sublingual 0.4 mg sublingual Q5-1 5M PRN chest 05/01/24 06/17/25 Rx tablet pain #25 tabs finasteride 5 mg tablet 5 mg PO DAILY BPH #90 tabs 1 11/07/23 06/17/25 Rx famotidine 20 mg tablet 20 mg PO DAILY GERD #90 tabs 09/10/24 06/17/25 Rx potassium chloride 10 mEq 10 meq PO QDAY With Lasix #9 0 tabs 11/15/24 06/17/25 Rx tablet,extended release(part/cryst) brinzolamide 1 %-brimonidine 0.2 % 1 drp ophthalmic (e ye) DAILY 12/14/24 06/17/25 History eye drops,suspension (Simbrinza) ursodiol 500 mg tablet 500 mg PO BID #180 tabs 01/1806/17/25 Rx apixaban 5 mg tablet (Eliquis) 5 mg PO BID #60 tabs 06/17/25 Rx furosemide 40 mg tablet 40 mg PO DAILY 04/19/2505/21 History atorvastatin 40 mg tablet (Lipitor) 40 mg PO DAILY 30 days #30 tabs 05/20/25 06/17/25 Rx budesonide-formoterol HFA 160 2 puff inhalation BID As thma #1 ea 06/17/25 06/17/25 Rx mcg-4.5 mcg/actuation aerosol inhaler (Symbicort) Have you fallen in the past year?: No PFSH Medical History (Reviewed 06/17/25 @ 16:53 by Ailin Sharma CASTING MACHINE OPERATOR HELPER, CASTING MACHINE OPERATOR HELPER-C) Bradycardia Immunity status testing Sore throat Exposure [...] Essential hypertension 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 Cholelithiasis without obstruction Hyperlipidemia Surgical History (Reviewed 06/17/25 @ 16:53 by Ailin Sharma CASTING MACHINE OPERATOR HELPER, CASTING MACHINE OPERATOR HELPER-C) History of nasal cauterization History of coronary artery stent placement History of colon resection History of cataract extraction Presence of stent in coronary artery History of appendectomy History of partial colectomy (~2003) Family History (Reviewed 06/17/25 @ 16:53 by Ailin Sharma CASTING MACHINE OPERATOR HELPER, CASTING MACHINE OPERATOR HELPER-C) Father Hypertension Grandmother Hypertension Other Alcoholism Liver disease Social History (Reviewed 06/17/25 @ 16:53 by Ailin Sharma CASTING MACHINE OPERATOR HELPER, CASTING MACHINE OPERATOR HELPER-C) household members: spouse Smoking Status: Never smoker alcohol intake: current alcohol intake frequency: holidays/special occasions only substance use type: does not use caffeine: No what type of physical activity do you participate in: weight training Review of Systems Resp Respiratory: Yes as per HPI Exam Const Constitutional: Positive conversant, cooperative, in no acute respiratory distress, healthy appearing, well developed, well nourished and good hygiene Head Head: Yes normocephalic, Yes atraumatic and No cyanosis of lips/distal nose Eyes Eye: Positive clear conjunctiva; Negative nystagmus Ears Ear: Positive hard of hearing and external ears normal Nose Nose: Yes external nose normal Mouth Mouth: Positive oral mucosae normal Neck Neck: Positive normal visual inspection and trachea midline Chest Wall Chest: Positive symmetric chest movement; Negative increased A/P diameter Resp lung sounds: Positive diminished lung sounds, normal expiratory time and normal respiratory effort; Negative wheezes, rhonchi, rales or use of accessory muscles Cardio Cardiac: Positive S1 normal, S2 normal and murmur murmur: Positive right upper sternal border, left upper sternal border and systolic; Negative regular rate, regular rhythm, rub or gallop GI GI: Positive normal to inspection Genitourinary: Positive deferred Musc Musculoskeletal: Positive using an assistive device for ambulation Skin Pulmonary Skin Exam: Positive intact; Negative lesion, rash, ulcers or dermal atrophy Extremities Extremities: No clubbing, No cyanosis and No edema Neuro Neurologic: Yes no focal neuro deficits, Yes conversant, Yes cooperative, Yes normal cognition, Yes normal coordination, Yes normal concentration and Yes understands questions Psych Appearance: Positive grossly normal and eye contact Mental Status: Positive mental status grossly normal Mood: Positive congruent mood Affect: Positive normal affect Immunizations Fluad 65yr up(PF)45 mcg(15 mcgx3)/0.5 mL intramuscular syringe Performing Provider: Ailin Sharma NP, CASTING MACHINE OPERATOR HELPER-C Performing Location: [facility] Administered by: Mikaela Jenkins LPN on 06/17/25 15:25 Dose Route Admin Location Dispensed Lot Number Expiration Date Pack age NDC NDC [employer] 45 mcg IM Left Deltoid 0.5 mL [id number] 01/16/26 89500-316-12 [id number] [employer], [employer]. VIS Given Date VIS Provided VIS Publication Date 06/17/25 Single Vaccine 24 Eligibility Eligibility Date Funding Source Not Applicable Coding Level of Care Code Off vis,est,level 3 Diagnoses Uncomplicated asthma, unspecified asthma severity, unspecified whether persistent J45.909 Asthma severity: unspecified severity Asthma persistence: unspecified Asthma complication type: uncomplicated Clinical Quality Measures Falls Risk Screening/Assistive Devices Have you fallen in the past year?: No 06/17/251656 <Electronically signed by Ailin lomax NP CASTING MACHINE OPERATOR HELPER-C> Date _ Ailin Sharma NP CASTING MACHINE OPERATOR HELPER-C Cosigner Signature: Date (if applicable) CC: Dr. Umm Mario MD ~ [facility] Work Phone: [phone]) 272-929009-19-2025 Progress note Author Maurice Longoria [facility] Note Date/Time June 07, 2025 3:59pm [facility] [address] [place] [address] OFFICE VISIT Date of Service: 06/07/25 MR#: [id number] Acct: [id number] Name: YOCASTAJESSEE KATI Rep #: [id number] : 1935 Provider: BASSEM Cristina Age/Sex: 89/M Location[place] [facility] [place] Status: Signed Intake Vital Signs 05/20/25 13:34 05/27/25 13:48 06/07/25 15:25 Height 6 ft 6 ft 6 ft Weight: 228 lb BMI 30.9 BP 148/64 H Blood Pressure Location Lt brachial Position Sitting Respiration 16 Pulse 67 Pulse Source Monitor Temp 97.9 F Temp Source Temporal Pulse Oximetry (%) 99 Oxygen Delivery Method room air Intake Visit Reasons: Hospital F/u + referral? Chief Complaint: HOSPITAL FU/REFERRAL Is patient in pain?: No Allergies metoprolol (From Lopressor) Allergy (Intermediate, Verified 06/07/25 15:18) Shortness of breath bee venom protein (honey bee) (bee sting) Allergy (Mild, Verified 06/07/25 15:18) Swelling Penicillins Allergy (Verified 06/07/25 15:18) Rash baclofen Adverse Reaction (Intermediate, Verified 06/07/25 15:47) Other Medications ?Medication ?Instructions ?Recorded ?Confirmed ?Type Disability Placard #1 ea 12/01/21 06/07/25 Rx albuterol sulfate 90 mcg/actuation 2 puff inhalation Q 4H PRN Asthma 04/28/23 06/07/25 Rx aerosol inhaler (Ventolin HFA) #8.5 grams nebulizer and compressor (Portable #1 ea 04/30/2305/20 Rx Nebulizer System) netarsudil 0.02 %-latanoprost 1 drp ophthalmic (eye) Q HS Eye 12/02/23 06/07/25 History 0.005 % eye drops (Rocklatan) drops acetaminophen 500 mg tablet 1,000 mg (2 x 500 mg) PO Q 6H PRN 12/30/23 06/07/25 Rx PRN Pain Score 1-10 #0 tabs sennosides 8.6 mg-docusate sodium 1 tab-cap PO DAILY 0 01/23/24 06/07/25 History 50 mg tablet (Senokot-S) nitroglycerin 0.4 mg sublingual 0.4 mg sublingual Q5-1 5M PRN chest 05/01/24 06/07/25 Rx tablet pain #25 tabs finasteride 5 mg tablet 5 mg PO DAILY BPH #90 tabs 1 11/07/23 06/07/25 Rx famotidine 20 mg tablet 20 mg PO DAILY GERD #90 tabs 09/10/24 06/07/25 Rx potassium chloride 10 mEq 10 meq PO QDAY With Lasix #9 0 tabs 11/15/24 06/07/25 Rx tablet,extended release(part/cryst) brinzolamide 1 %-brimonidine 0.2 % 1 drp ophthalmic (e ye) DAILY 12/14/24 06/07/25 History eye drops,suspension (Simbrinza) budesonide-formoterol HFA 160 2 puff inhalation BID As thma #1 ea 12/14/24 06/07/25 Rx mcg-4.5 mcg/actuation aerosol inhaler (Symbicort) ursodiol 500 mg tablet 500 mg PO BID #180 tabs 01/1806/07/25 Rx apixaban 5 mg tablet (Eliquis) 5 mg PO BID #60 tabs 06/07/25 Rx furosemide 40 mg tablet 40 mg PO DAILY 04/19/2505/20 History atorvastatin 40 mg tablet (Lipitor) 40 mg PO DAILY 30 days #30 tabs 05/20/25 06/07/25 Rx Have you fallen in the past year?: No PFSH Medical History Bradycardia Immunity status testing [...] Essential hypertension 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 Cholelithiasis without obstruction Hyperlipidemia Surgical History History of nasal cauterization History of coronary artery stent placement History of colon resection History of cataract extraction Presence of stent in coronary artery History of appendectomy History of partial colectomy (~2003) Family History Father Hypertension Grandmother Hypertension Other Alcoholism Liver disease Social History household members: spouse Smoking Status: Never smoker alcohol intake: current alcohol intake frequency: holidays/special occasions only substance use type: does not use caffeine: No what type of physical activity do you participate in: weight training HPI HPI Chief Complaint: HOSPITAL FU/REFERRAL Details: JESSEE RUST, is a 89 M who presents to the office today for F/U from the hospital stating that he needs a referral for the vascular surgeon. eE states that morning he took a tylenol and baclofen (9 o'clock) which is something he has done many times in the past. He states that about 45 minutes later he got excessively tired. He states that he slept for about 2 hours which was not normal for him. He states that he got woken up from the phone (daughter called) and he dropped the phone and couldn't find it (he has chronic vision issues) andthen when he went in to the bathroom to use the restroom and when he got out of the bathroom his daughter was there and so because he didn't feel they called the squad. He states that they told him they wanted to take him to the ER and so he said fine and allowed them to take him. He states that he got there and they did all sorts of test emergently. He states that everything was good other than they found some calcifications / plaque in the vertebrobasilar artery. As a result he is set up to see vascular surgery next month. Patient is seeing cardiology and recently saw a new vp informatics for possibleplacement fo Watchman device. HE still takes Eliquis in the mean time. At this point he states that he had a long conversation with the vp informatics and is likely going to proceed with the implantation of the Watchman device in hopes ofbeing able to get off the blood thinner. He does check his BP regularly and states that it typically is up a little inthe afternoon if he has been up and around. ROS Const Constitutional: No body ache, chills, excessive sweating, fatigue, fever(s), frequent falls, headache(s), snoring, weakness, sleep problems or change in appetite Eyes Eyes: No blurry vision, change in vision or Light sensitivity ENT ENT: No abnormal hearing, ear or mastoid pain, tinnitus, nasal congestion, nasaldischarge, headache(s), neck pain or sore throat Resp Respiratory: No cough, shortness of breath, snoring or wheezing Cardio Cardiology: No chest pain at rest, chest pain with exertion, excessive sweating,shortness of breath, dyspnea on exertion, lightheadedness, orthopnea or palpitations Gastro GI: No abdominal pain, change in bowel habits, constipation, cramping, diarrhea or nausea/dyspepsia Genitourinary Male: No burning urination, painful urination, urinary incontinence or urinary frequency Musc Musculoskeletal: No abnormal gait, joint pain, back pain, limited range of motion, muscle weakness, neck pain or numbness Skin Skin: No dry skin, redness, lesions, itchy eyes, rash or wounds Neuro Neurology: No abnormal gait, abnormal hearing, weakness, frequent falls, headache(s), memory loss or numbness Psych Psychiatric: No anxiety, No change in appetite, No depression, No memory loss, No panic attacks and No Thoughts of harming yourself/Others Endo Endocrine: No cold intolerance, excessive sweating, fatigue, flushing, heat intolerance, increased thirst/drinking or increased hunger Aller/Imm Allergy/Immunologic: No itchy eyes, seasonal allergy symptoms, hives or wheezing Exam Const General: cooperative, comfortable, no acute distress, well developed and well groomed Nutritional Appearance: average body habitus Orientation: alert, awake and oriented x3 Limitations: mental status not altered HENMT Ears: hearing grossly normal bilaterally Neck Neck: no lymphadenopathy, supple and nontender Resp Effort & Inspection: normal respiratory effort, able to speak in complete sentences, symmetric chest movement, normal respiratory pattern, no audible wheezes and no cough Auscultation: Bilateral: Clear to Auscultation Cardio Palpation: normal PMI Rate: regular rate (Normal rate today) Rhythm: abnormal rhythm irregularly irregular (Chronic atrial fibrillation) Heart Sounds: murmur systolic holo and III/ Pulses: radial pulses present bilaterally 1+ Neuro General: patient alert, patient awake and patient oriented x3 Cognition: normal cognition Speech: speech normal Gait: gait assisted Method: walker (rollator walker) Psych Appearance: grossly normal Mental Status: mental status grossly normal Mood: congruent mood Affect: normal affect Attitude: cooperative Coding Level of Care Code Off vis,est,level 3 Diagnoses Fatigue, unspecified type R53.83 Fatigue type: unspecified 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 We did discuss why patient went into the emergency department and patient was very implicit that he did not go in there due to facial drooping or slurred speech orother symptoms. As noted in the HPI patient states that again he felt excessively fatigued and when he lost his phone he could not call his daughter back and so when she came to the house and called the squad they wanted to take him because he did not feel well. Again patient had a lot of labs which we did review all of which looked very good again other than the CT scan showing some evidence of vertebrobasilar stenosis. Patient states that he feels like he is started to have some of the symptoms with the baclofen but this was by far the worst. I do think that as a muscle relaxants at his age it could be responsiblefor some symptoms. I think at this point it is shaw to just not take the baclofen anymore and patient agrees that he does not wish to take that. Again he did have some labs which all looked very good for him. Minor anemia which was stable. No other acute findings on labs. Patient states that he has been feeling fine since being in the hospital. He is not complaining of any symptomstoday. Vitals all look good today. Blood pressure is up a little bit which shestates is pretty common in the afternoon if he has been up and around at the same time it does go down. He does check the blood pressure regularly and has people checking the blood pressure regularly at home. At this point again patient has no concerns or complaints. He can notify us with any questions or concerns. I do want a make sure that he drinks plenty of water today and make sure he is getting proper nutrition. (2) Vertebrobasilar artery stenosis: Status: Acute Plan: Patient initially states he came because he needed a referral at the same time patient already has an appointment on 24 June with vascular surgery. Discussed that we will go ahead and place a referral in there just from an insurance standpoint. (3) Atrial fibrillation: Status: Chronic Qualifiers: Atrial fibrillation type: persistent (not longstanding) Qualified Code(s): I48.19 - Other persistent atrial fibrillation Plan: Patient continues to be in atrial fibrillation today which is chronically present. Again patient just met with another vp informatics regarding the implantation of a Watchman device. He states that he at this point feels like he is going to pursue implantation of this device so that he would be able to get off anticoagulation. He is waiting to hear back from the cardiology office regarding this. Patient did end up going back to the hospital to get the EKG because he knew he was post to get that done. We did review that EKG today. Itdoes show evidence of a possible septal infarct with an undetermined age. This was almost identical to his reading that he just had with his vp informatics. They did not feel that the septal infarct was correct on the EKG. Again this was identical to that EKG done within the past 2 weeks. As always patient is topay attention to any signs of acute cardiac involvement such as chest pains or pressures, shortness of breath, or other symptoms. If he experiences any of these he needs to present to the emergency department. If he has other questions that are not acute he can notify the office and/or his vp informatics. Orders: Referrals Vascular I65.09 - Occlusion and stenosis of unspecified vertebral artery, I65.1 - Occlusion and stenosis of basilar artery Clinical Quality Measures Falls Risk Screening/Assistive Devices Have you fallen in the past year?: No 06/07/25 8136 <Electronically signed by Maurice LUEVANO> Date _ Maurice Denise Signature: Date (if applicable) CC: ~ [facility] Work Phone: [phone] History of Present illness Narrative* Priya Saleh, OD - 05/30/2025 2:27 PM EDT 1. Regular astigmatism of both eyes (Primary) 2. Presbyopia Finalized spec rx BCVA: 20/30+ OD!!/20/70 OS 3. Primary open angle glaucoma (POAG) of both eyes, severe stage Continue medications as prescribed Simbrinza 2/2 and Rocklatan 09/19 and scheduled follow-ups with Dr. Shea I have confirmed and edited as necessary the relevant HPI, ophthalmic history, ROS, and the neuro exam findings as obtained by others. I have seen and examined Jessee Rust. I have discussed the case and the management of this patient's care with the Resident/Fellow, if applicable. I also have reviewed and agree with the assessment and plan as stated above and agree withall of its relevant components. Priya Saleh, CHRISTY May 30, 2025 2:27 PM documented in this encounterUk [facility]09-11-2025 NoteHNO ID: [id number] Author: PRIYA SALEH OD Service: ? Author Type: Felt Cutter Type: Progress Notes Filed: 05/30/2025 14:28 Note Text: 1. Regular astigmatism of both eyes (Primary) 2. Presbyopia Finalized spec rx BCVA: 20/30+ OD!!/20/70 OS 3. Primary open angle glaucoma (POAG) of both eyes, severe stage Continue medications as prescribed Simbrinza 2/2 and Rocklatan 09/19 and scheduled follow-ups with Dr. Shea I have confirmed and edited as necessary the relevant HPI, ophthalmic history, ROS, and the neuro exam findings as obtained by others. I have seen and examined Jessee Rust. I have discussed the case and the management of this patient's care with the Resident/Fellow, if applicable. I also have reviewed and agree with the assessment and plan as stated above and agree with all of its relevant components. Priya Saleh, OD May 30, 2025 2:27 [facility]09-08-2025 Instructions* Patient Instructions* Shawn Shea MD - 05/27/2025 10:35 AM EDT You will be dilated on your next visit. This will likely make your vision blurry for several hours, and you should strongly consider bringing a cab driver. documented in this encounterUk Healthcare09-08-2025 NoteHNO ID: [id number] Author: SHAWN SHEA MD Service: ? Author Type: Physician Type: Progress Notes Filed: 05/27/2025 10:36 Note Text: New from Sudha Tmax: <22; Pachy: -, - Lasers and Surgeries: OD: CEIOL OS: 11/2022 Selected laser trabeculoplasty (SLT) Selected laser trabeculoplasty (SLT) previous yrs CEIOL Ocular Medication Intol and Non-efficacy: Bradycardia = BB Now on simbrinza 10/21, rocklatan 09/19 -HVF 07/2024 false negatives off OD central island, possible worse but only one baseline to compare to OS sparing sup arc, possible worse but only one baseline to compare to -OCT 05/2025 OD diffuse thinning, similar OS diffuse thinning, similar # Primary open angle glaucoma (POAG) severe both eyes - low/mid teens both eyes on 3 agents both eyes - visual field with possible progression but only one prior to compare to and intraocular pressure is consistently low teens now - goal <= 14 both eyes - stable OCT retinal nerve fiber layer - great intraocular pressure - follow 4 months, visual acuity, intraocular pressure, visual field, dilate, OCT retinal nerve fiber layer (since visual field with reliability issues before so will repeat OCT as second test) - Discussed continuation of drop usage to [...] and agree with all of its relevant components.[facility]09-08-2025 NoteDate of Procedure 05/27/2025. Associate Quality Engineer Information Bench Loom Weaver: RAOUL. Start time: 10:17 AM. Stop time: 10:26 AM. NFL Interpretation Right Eye Diffuse loss. Left Eye Diffuse loss. Interval Change Right Eye Stable. Left Eye Stable.[id number] History of Present illness Narrative* Shawn Seha MD - 05/27/2025 10:30 AM EDT New from Sudha Tmax: <22; Pachy: -, - Lasers and Surgeries: OD: CEIOL OS: 11/2022 Selected laser trabeculoplasty (SLT) Selected laser trabeculoplasty (SLT) previous yrs CEIOL Ocular Medication Intol and Non-efficacy: Bradycardia = BB Now on simbrinza 10/21, rocklatan 09/19 -HVF 07/2024 false negatives off OD central island, possible worse but only one baseline to compare to OS sparing sup arc, possible worse but only one baseline to compare to -OCT 05/2025 OD diffuse thinning, similar OS diffuse thinning, similar # Primary open angle glaucoma (POAG) severe both eyes - low/mid teens both eyes on 3 agents both eyes - visual field with possible progression but only one prior to compare to and intraocular pressure is consistently low teens now - goal <= 14 both eyes - stable OCT retinal nerve fiber layer - great intraocular pressure - follow 4 months, visual acuity, intraocular pressure, visual field, dilate, OCT retinal nerve fiber layer (since visual field with reliability issues before so will repeat OCT as second test) - Discussed continuation of drop usage to [...] of its relevant components. documented in this encounterUk Healthcare09-04-2025 Telephone encounter Note * Telephone Encounter - Corina Nguyen MD - 05/23/2025 4:34 PM EDT [facility] General Electrophysiology (EP) If we receive shared decision making documentation from Dr. Schmidt outlining the rationale for seeking alternative to oral anticoagulation therapy, including the CMS/Medicare required use of a shared decision making tool, then we can proceed. [facility] had a template for this in the past that they would use that contains the verbiage. I will send copy of this note to Dr. Schmidt. Corina Nguyen MD May 23, 2025 4:36 PM [facility]09-04-2025 Miscellaneous Notes* Telephone Encounter - Corina Nguyen MD - 05/23/2025 4:34 PM EDT [facility] General Electrophysiology (EP) If we receive shared decision making documentation from Dr. Schmidt outlining the rationale for seeking alternative to oral anticoagulation therapy, including the CMS/Medicare required use of a shared decision making tool, then we can proceed. [facility] had a template for this in the past that they would use that contains the verbiage. I will send copy of this note to Dr. Schmidt. Corina Nguyen MD May 23, 2025 4:36 PM * Telephone Encounter - Joanne Lion LPN - 05/22/2025 11:49 AM EDT Jessee Rust called regarding discussion had on 05/14/25 about a Watchmen , patient is agreeable to the placement. ThanksJoanne LPN May 22, 2025 11:51 AM documented in this encounterUk Healthcare09-03-2025 Telephone encounter Note * Telephone Encounter - Joanne Lion LPN - 05/22/2025 11:49 AM EDT Jessee Rust called regarding discussion had on 05/14/25 about a Watchmen , patient is agreeable to the placement. ThanksJoanne LPN May 22, 2025 11:51 AM [facility]09-01-2025 Discharge summary Author Roberto Rudolphgett [facility] Note Date/Time May 20, 2025 3:49pm [facility] Medical Records Department [address] [place] [id number] Emergency Department Summary 05/20/25 MR#: [id number] Acct: [id number] Name: JESSEE RUST Rep #:[id number] 18 : 1935 89 From: Roberto brown DO PCP: Dr. Umm Mario MD Status:R EG ER Location: ED HPI History of Present Illness Chief Complaint: Stroke Alert Narrative Narrative: Chief complaint and HPI: 89-year-old male with past medical history of CHF, atrial fibrillation on Eliquis, glaucoma, BPH, HLD presents for evaluation of strokelike symptoms. Patient arrived as a stroke alert. Patient states last known well was 2100 yesterday prior to falling asleep. He states he woke up today with right-sided facial droop and increased blurriness of the left eye. Patient states at baseline he has poor vision and depth perception secondary to his glaucoma. He states he has a home nurse that felt that he was slightly weaker on the right compared to the left however ever patient has not noticed this. He denies any headache, fever, chills, shortness of breath, chest pain abdominal pain, nausea, vomiting, difficulty speaking. Review of systems: See HPI Medications: As listed on the chart Allergies: As listed on the chart PFSH: Per chart Vital signs: As listed on the chart. Reviewed. Physical exam: Gen: A&O x3, NAD Head: Normocephalic, atraumatic Eyes: No sclera icterus, conjunctiva clear, PERRL, EOMI, no visual field deficit ENT: Moist mucous membranes, mild right sided facial droop Neck: Trachea midline, No JVD CV: Regular rate, irregular rhythm, no murmurs, no peripheral edema Resp: Lungs CTA BL, no w/r/c GI: Abd soft, non-distended, non-tender, no r/r/g Musc: Full ROM, no deformity, strength +5/5 in all extremities, no pronator drift, ataxia with [id number] testing bilaterally-patient states this is hisbaseline given his issues with depth perception, no ataxia with [id number] testing Skin: Warm, dry, intact Neuro: Alert, oriented, grossly intact, sensation intact, NIH 1 no dysarthria oraphasia Psych: Cooperative, appropriate mood and affect PFSH [facility] Medical History Bradycardia Immunity status testing Sore [...] Essential hypertension 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 Cholelithiasis without obstruction Hyperlipidemia Home Medications ?Medication ?Instructions ?Recorded ?Last Taken ?Type Disability Placard #1 ea 12/01/21 Unknown Rx albuterol sulfate 90 mcg/actuation 2 puff inhalation Q 4H PRN Asthma 04/28/23 05/14/25 Rx aerosol inhaler (Ventolin HFA) #8.5 grams nebulizer and compressor (Portable #1 ea 04/30/23 Unkn own Rx Nebulizer System) netarsudil 0.02 %-latanoprost 1 drp ophthalmic (eye) Q HS Eye 12/02/23 05/19/25 History 0.005 % eye drops (Rocklatan) drops acetaminophen 500 mg tablet 1,000 mg (2 x 500 mg) PO Q 6H PRN 12/30/23 Unknown Rx PRN Pain Score 1-10 #0 tabs sennosides 8.6 mg-docusate sodium 1 tab-cap PO DAILY 0 01/23/24 05/20/25 History 50 mg tablet (Senokot-S) nitroglycerin 0.4 [...] mg PO QHS cholesterol #90 tabs 10/22/24 05/19/25 Rx potassium chloride 10 mEq 10 meq PO QDAY With Lasix #9 0 tabs 11/15/24 Unknown Rx tablet,extended release(part/cryst) brinzolamide 1 %-brimonidine 0.2 % 1 drp ophthalmic (e ye) DAILY 12/14/24 05/20/25 History eye drops,suspension (Simbrinza) budesonide-formoterol HFA 160 2 puff inhalation BID As thma #1 ea 12/14/24 05/20/25 Rx mcg-4.5 mcg/actuation aerosol inhaler (Symbicort) ursodiol 500 mg tablet 500 mg PO BID #180 tabs 01/1805/20/25 Rx apixaban 5 mg tablet (Eliquis) 5 mg PO BID #60 tabs 05/20/25 Rx furosemide 40 mg tablet 40 mg PO DAILY 04/19/25 09/10/13 History baclofen 10 mg tablet 10 mg PO TID PRN muscle spas ms #15 05/17/25 05/20/25 Rx tabs Allergy/AdvReac Type Severity Reaction Status Date / Time metoprolol (From Lopressor) Allergy Intermediate Shortness Verified 05/08/25 10:20 of breath bee venom protein (honey Allergy Mild Swelling Verified 05/08/25 10:20 bee) (bee sting) Penicillins Allergy Rash Verified 05/08/25 10:20 Family History Father Hypertension Grandmother Hypertension Other Alcoholism Liver disease Surgical History History of nasal cauterization History of coronary artery stent placement History [...] training EXAM Physical Exam Const Vital Signs: 05/20/25 12:44 05/20/25 12:44 05/20/25 12:45 Temperature 98 F 98.5 F Temperature Source Oral Oral Pulse Rate 84 80 Respiratory Rate 20 H 18 Blood Pressure 167/86 H 164/93 H Blood Pressure Mean 113 116 Pulse Ox 98 100 Oxygen Delivery Method Room Air Room Air Room Air 05/20/25 13:11 05/20/25 13:30 05/20/25 14:00 Temperature Temperature Source Pulse Rate 54 L 57 L 49 L Respiratory Rate 16 16 Blood Pressure 133/94 H 122/87 H 149/74 H Blood Pressure Mean 107 98 99 Pulse Ox 100 100 Oxygen Delivery Method 05/20/25 15:00 Temperature Temperature Source Pulse Rate 54 L Respiratory Rate Blood Pressure 134/107 H Blood Pressure Mean 116 Pulse Ox Oxygen Delivery Method MDM MDM MDM Narrative Medical decision making narrative: 89-year-old male with past medical history of CHF, atrial fibrillation on Eliquis, glaucoma, BPH, HLD presents for evaluation of strokelike symptoms. Patient arrived as a stroke alert. Patient states last known well was 2100 yesterday prior to falling asleep. He states he woke up today with right-sided facial droop and increased blurriness of the left eye. Patient states at baseline he has poor vision and depth perception secondary to his glaucoma. He states he has a home nurse that felt that he was slightly weaker on the right compared to the left however patient has not noticed this. Patient's was calleda stroke alert before arrival via EMS. NIH 1 secondary to right facial droop. Stroke alert continued and patient taken immediately to CT. Not a TNK candidategiven last known normal 2100. Patient still in the LVO window. Differential diagnosis includes but is not limited to CVA, LVO, glaucoma, electrolyte abnormality. Once patient arrived back from CT. His is in the room. Wifestates that the patient's right-sided facial droop has been present for approximately 2 months. Patient now stating it has been present prior to today.He still endorses the worsening blurry vision of the left eye but denies neurological deficits otherwise. Given that this facial droop is not new, patient's NIH is 0. Given that NIH is 0 and that the only new deficit today is worsening left eye blurriness, stroke alert will be canceled. I did speak with the teleneurologist from [facility]. Dr. Hunt, he agrees on canceling the stroke. He did review the imaging. CT head without any acute intracranial abnormality. Chronic microvascular ischemia. CTA head and neck shows no LVO. High-grade stenosis and/thrombosis of a significant portion of the left vertebral artery mainly at the proximal portion. Minimal amount of retrograde filling. Dominantright vertebral artery. Widely patent right vertebral basilar artery. Patent right posterior commuting artery. Per Dr. Lux, medical management only. Recommend him continuing his Eliquis but increasing his atorvastatin to 40 mg daily instead of 20. Does not believe that patient needs any admission or further stroke workup. Stroke alert was canceled. CBC with mild leukocytosis 11.8, appears to be patient's baseline. He has baseline anemia and thrombocytopenia. INR 1.4. BMP unremarkable. Troponin 52 and 51. Patient nothaving any chest pain or shortness of breath. Delta troponin less than 6. No ischemic changes on EKG. Suspect this is his baseline. UA negative for UTI. Patient's visual acuity was tested. Patient has poor eyesight. Rate is 20/70. Left is 20/400, bilateral 20/200. Patient does not know his visual acuity however states that he is considered legally blind. I performed a thorough eye exam. No periorbital swelling or ecchymosis, no proptosis, no pain with extra ocular movements, EOMI intact, no lacerations, no sclera chemosis or injection, no foreign body, no teardrop pupil, no enophthalmos. Intraocular pressures were 14 bilaterally. Patient states that this is his baseline when he is on medication. States he is scheduled to see the eye doctor in a week. At this point in time, I suspect that patient's blurry vision in his left eye is likely secondaryto progressive vision loss/glaucoma. Patient ambulated in the emergency department without difficulty. Patient stable to discharge home. Recommend calling the eye doctor tomorrow to be seen sooner in the office. Patient confirmed understanding of plan. Patient not driving. Patient stable to discharge home. Will increase his atorvastatin to the 40 mg recommended. Follow-up with vascular surgery for vertebral artery stenosis. He confirmed understanding. EKG: Interpreted by me/EM physician: EKG shows atrial fibrillation without any acute ischemic changes. Heart rate 52 Diagnostic: Interpreted by me/EM physician: Chest x-ray with mild cardiomegaly. No pneumothorax, pneumonia, large effusion. Radiology in agreement. Impression: 1. Acute on chronic blurry vision in the left eye 2. History of glaucoma and legally blind 2. 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 Lab Data Labs: Laboratory Results - last 24 hr 05/20/25 05/20/25 05/20/25 12:57 13:28 14:41 WBC 7.2 RBC 3.64 L Hgb 11.1 L Hct 34.8 L MCV 95.6 H MCH 30.5 MCHC 31.9 L RDW Std Deviation 55.1 H RDW Coeff of Angelia 15.7 H Plt Count 108 L MPV 11.2 Immature Gran % (Auto) 0.100 Neut % (Auto) 55.0 Lymph % (Auto) 31.9 Grundy % (Auto) 11.2 H Eos % (Auto) 1.4 Baso % (Auto) 0.4 Absolute Neuts (auto) 4.0 Absolute Lymphs (auto) 2.30 Nucleated RBC % 0 PT 17.1 H INR 1.4 APTT 34.0 Sodium 136 Potassium 4.2 Chloride 103 Carbon Dioxide 25.3 Anion Gap 7 BUN 18 Creatinine 0.93 Estim Creat Clear Calc 66.91 Est GFR (MDRD) Non-Af 79 BUN/Creatinine Ratio 19.3 Glucose 93 Calcium 8.7 Troponin T High Sens 52 H Troponin T Hi Sens 2 Hr 51 H Urine Color Yellow Urine Clarity Clear Urine pH 6.0 Ur Specific [place] 1.010 Urine Protein 15 H Urine Glucose (UA) Normal Urine Ketones Negative Urine Occult Blood 25 H Urine Nitrite Negative Urine Bilirubin Negative Urine Urobilinogen Normal Ur Leukocyte Esterase 25 H Urine RBC 0 SEEN Urine WBC 0-5 SEEN Ur Squamous Epith Cells 0-5 SEEN Urine Bacteria 0 SEEN Urine Mucus 0 SEEN Radiography Diagnostic Testing: Clinical Impression(s) from Imaging Studies Brain CT 05/20/25 12:44 IMPRESSION: 1. No evidence of intracranial hemorrhage or acute ischemia. 2. Changes of chronic microvascular ischemia and volume loss. The findings and impression were called directly to Dr. Tanner at 12:58 PM EST Reading Location: [facility] Chest X-Ray 05/20/25 12:44 IMPRESSION: 1. Slight hypoinflation without convincing or visible acute cardiopulmonary findings 2. Additional description as above. Reading Location: [facility] Head/Neck CTA 05/20/25 12:55 IMPRESSION: 1. No evidence of large vessel occlusion at the MCAs. 2. High-grade stenosis/thrombosis of a significant portion of the left vertebral artery mainly at the proximal portion. Minimal amount of retrograde filling. 3. Dominant right vertebral artery. Widely patent right vertebral and basilar artery. 4. Patent right posterior communicating artery. Reading Location: [facility] Discharge Plan Triage Chief Complaint: Stroke Alert ED Provider: Roberto Tanner Dx/Rx/DC Orders Prescriptions: No Action albuterol sulfate [Ventolin HFA] 90 mcg/actuation HFA aerosol inhaler 2 puff INHALATION Q4H PRN (Reason: Asthma) Qty: 8.5 2RF sennosides-docusate sodium [Senokot-S] 8.6-50 mg tablet 1 tab-cap PO DAILY Simbrinza 1-0.2 % drops,suspension 1 drp ophthalmic (eye) DAILY budesonide-formoterol [Symbicort] 160-4.5 mcg/actuation HFA aerosol inhaler 2 puff inhalation BID Qty: 1 11RF Rx Instructions: administer with spacer, rinse mouth after each use potassium chloride 10 mEq tablet,ER particles/crystals 10 meq PO QDAY Qty: 90 3RF ursodiol 500 mg tablet 500 mg PO BID Qty: 180 1RF Rocklatan 0.02-0.005 % drops 1 drp ophthalmic [...] 20 mg PO QHS Qty: 90 3RF Eliquis 5 mg tablet 5 mg PO BID Qty: 60 11RF baclofen 10 mg tablet 10 mg PO TID PRN (Reason: muscle spasms) Qty: 15 1RF Primary Care Provider: Umm Mario Referrals: Umm Mario MD [Primary Care Provider] - Print Language: Monegasque What to do if you have Problems For any increased pain, shortness of breath, bleeding, nausea or vomiting, chestpain, or any unexpected problems, contact your Primary Care Provider. Call [facility] ([phone]) or report to the closest Emergency Room. Call 911 if necessary. 05/20/25 5511 <Electronically signed by Roberto Tanner DO> Cosigner Signature (if applicable): CC: Dr. Umm Mario MD ~ Signed [facility] Work Phone: [phone] 400-647409-01-2025 Radiology Diagnostic study [facility]09-01-2025 Radiology Diagnostic study [facility]09-01-2025 Radiology Diagnostic study [facility] 05-14-2025 Instructions* Patient Instructions* Corina Nguyen MD - 05/14/2025 3:31 PM [...] would be a specialized [facility] to assessthe size and shape of your left atrial appendage. If transportation to [place] is a challenge, we candiscuss alternatives, such as evaluating the appendage on [...] your family. If you decide to proceed, manny schedule the CT scan and the procedure at [facility]. - If you experience worsening symptoms, [...] primary care physician, Dr. Mario, to coordinate yourcare. If you have any questions or concerns, please reach out to our office. documented in this encounterUk Healthcare08-26-2025 History of Present illness Narrative* Corina Nguyen MD - 05/14/2025 2:20 PM EDT PRIMARY CARE PHYSICIAN: Umm Mario ([facility]) [address] [facility] [address] [place] [id number] REFERRING PHYSICIAN: Odalis Schmidt MD [address] [place] [address] Patient Care Team: Umm Mario MD as PCP - General (Internal Medicine) Gretchen Nguyen CNP as Nurse Practitioner (Internal Medicine) Odalis Schmidt as Specialty Tap And Die Maker Technician (Cardiology) Recording using ambient [employer] software for draft documentation of the visit was discussed with the patient/authorized fraud representative; all questions welcomed and answered. Patient/authorized fraud representative agreed to proceed CHIEF COMPLAINT: Evaluation of arrhythmia HISTORY OF PRESENT ILLNESS: Mr. Rust is a 89 year old male who presents today for evaluation of management of atrial fibrillation and stroke risk. He is accompanied by his but also his son and daughter by telephone speaker phone. Patient Overview: Mr. Rust is referred for evaluation of atrial fibrillation by [facility]. The atrial fibrillation has been increasing in frequency and duration recently. He reports symptoms of fatigue, though he has a long-standing history of fatigue. He has also been found to have bradycardia. Records from [facility] indicate suspicion that the atrial fibrillation is not substantially symptomatic. There is concern about unfavorable risk to benefit for oral anticoagulation therapy. He was seen by Dr. Schmidt of [facility] on 03/21/2025. He has a complex cardiovascular [...] atrial fibrillation. The patient was referred by [facility] for evaluation of atrial fibrillation, [...] but there is concern about the unfavorable xxzu-ti-doikpsc ratio given his bleeding history. He has a complex cardiovascular history, including CAD with previous stenting of the LAD in 2009 and 2016. He experienced an NSTEMI in 11/2023 and underwent cardiac catheterization, which revealed nosevere stenosis requiring intervention; he was treated medically. [...] home than the reading of 161/84 mmHg takentoday. He has a nurse who visits once [...] Dysplastic colon polyp 11/21/2006 Dr. Grant, Gastroenterology, [place]. Elevated prostate specific antigen (PSA) 11/21/2006 Follows [...] biliary cirrhosis (HCC) 10/27/2010 Dr. Grant, Gastroenterology, [place]. PULMONARY NODULE 11/21/2006 Dr. Denzel Powell, Pulmonary. Rosacea 06/14/2008 Sinus bradycardia Sinus node dysfunction (HCC) 05/13/2025 Unspecified essential hypertension PAST SURGICAL HISTORY Procedure Laterality Date APPENDECTOMY 07/1981 COLECTOMY PART W/ANASTOMOSIS 12/2003 right hemicolectomy - [place] COLONOSCOPY FLX DX W/COLLJ SPEC WHEN PFRMD 05/22/2008 Colonoscopy- [place] INSERT INTRACORONARY STENT 08/14/2010 Promus stents x2 lesions, LAD INSERT INTRACORONARY STENT 11/15/2016 Drug eluting stent, LAD KNEE SURGERY HX Left 02/2005 left medial meniscectomy arthroscopy PRCTECT COMPL W/STOT/TOT COLCT W/SOLID WASTE COLLECTOR BXS TRURL ELECTROSURG RESCJ PROSTATE BLEED COMPLETE [...] with controlled ventricular response, average 61 bpm; normalQRS duration 86 ms; QTc 446 ms I [...] ICD9: 427.89, ICD10: R00.1 9. Atherosclerosis of [place] coronary artery of [place] heart without angina pectoris - ICD9: 414.01, [...] as 27 bpm, although he reports this wasmeasured by his Apple Watch so we need to consider that the measured rate by this device can resultin falsely low readings during PVCs, the pulse [...] today's discussion and plan. 9. Atherosclerosis of [place] coronary artery of [place] heart without angina pectoris (I25.10) 10. Presence [...] implant, which I suspect he will, then [facility] order the CT angiogram to evaluate the left atrial appendage morphology and dimensions --- this is a highly specialized CT angiogram that would need to be performed at [facility]. It is not critical to have the CT angiogram performed but can be very helpful for the planning of the procedureas well as excluding any issues that would not permit Watchman implant (such as the unlikely possibility of a left atrial appendage size or morphology that cannot be addressed with the Watchman device, or the presence of left atrial appendage thrombus). If due to transportation issues Mr. Rust cannot have the CT angiogram performed we could defer it and instead evaluate the left atrial appendagewith the usual BOSSMAN that is performed at the time of the procedure. Also, if Mr. Rust decides to proceed with Watchman implant we would need a statement from Dr. Schmidt outlining the rationale for Watchman implant including the verbiage required by CMS/Medicare that includes documentation of the use of shared decision-making tool. From past experience, [facility] has a template of this [...] rare Drug use: No documented in this encounterUk Healthcare08-26-2025 NoteHNO ID: [id number] Author: CORINA NGUYEN MD Service: ? Author Type: Physician Type: Progress Notes Filed: 05/14/2025 17:30 Note Text: PRIMARY CARE PHYSICIAN: Umm Mario ([facility]) [address] [address] REFERRING PHYSICIAN: Odalis Schmidt MD [address] [facility] [address] Patient Care Team: Umm Mario MD as PCP - General (Internal Medicine) Gretchen Nguyen CNP as Nurse Practitioner (Internal Medicine) Odalis Schmidt as Specialty Tap And Die Maker Technician (Cardiology) Recording using [employer] software for draft documentation of the visit was discussed with the patient/authorized fraud representative; all questions welcomed and answered. Patient/authorized fraud representative agreed to proceed CHIEF COMPLAINT: Evaluation of arrhythmia HISTORY OF PRESENT ILLNESS: Mr. Rust is a 89 year old male who presents today for evaluation of management of atrial fibrillation and stroke risk. He is accompanied by his but also his son and daughter by telephone speaker phone. Patient Overview: Mr. Rust is referred for evaluation of atrial fibrillation by [facility]. The atrial fibrillation has been increasing in frequency and duration recently. He reports symptoms of fatigue, though he has a long-standing history of fatigue. He has also been found to have bradycardia. Records from [facility] indicate suspicion that the atrial fibrillation is not substantially symptomatic. There is concern about unfavorable risk to benefit for oral anticoagulation therapy. He was seen by Dr. Schmidt of [facility] on 03/21/2025. He has a complex cardiovascular [...] atrial fibrillation. The patient was referred by [facility] for evaluation of atrial fibrillation, [...] indicate he has n (more content not included)...[facility]07-03-2025 Evaluation note* Diagnosis Onset Date Resolution Status Admit Date Bradycardia acute March 21 10:51am Aortic stenosis chronic March 21, 2025 10:51am Atherosclerosis of coronary artery of [place] heart without angina pectoris chronic March 21, 2025 1 0:51am Paroxysmal atrial fibrillation chron ic March 21, 2025 10:51am Chronic anticoagulation inactive 2024 10:51am Lower leg edema acute April 1:44pm Right-sided nosebleed acute Apr 1:44pm Bradycardia acute May 08, 2025 10:18am Chest pain acute May 08, 10:18am Light-headed feeling acute 2024 10:18am CHF (congestive heart failure) chron ic May 08, 2025 10:18am Fatigue acute May 2:54pm 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, 2025 2:54pm Atrial fibrillation chronic mber 2024 2:54pm Asthma chronic May 2:33pm Vertebral artery occlusion chronic June 24, 2025 2:41pm [facility] Work Phone: 1(498) 647-340007-03-2025 Evaluation note* Diagnosis Onset Date Resolution Status Admit Date Bradycardia acute March 21 10:51am Aortic stenosis chronic March 21, 2025 10:51am Atherosclerosis of coronary artery of [place] heart without angina pectoris chronic March 21, 2025 1 0:51am Paroxysmal atrial fibrillation chron ic March 21, 2025 10:51am Chronic anticoagulation inactive 2024 10:51am Lower leg edema acute April 1:44pm Right-sided nosebleed acute Apr 1:44pm Bradycardia acute May 08, 2025 10:18am Chest pain acute May 08, 025 10:18am Light-headed feeling acute Augu st 2024 10:18am CHF (congestive heart failure) chron ic May 08, 2025 10:18am Fatigue acute May 2:54pm 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, 2025 2:54pm Atrial fibrillation chronic Septe mber 2024 2:54pm Asthma chronic May 2:33pm Vertebral artery occlusion chronic June 24, 2025 2:41pm Primary biliary cirrhosis chronic July 02, 2025 1:53pm Aortic stenosis chronic June 192024 2:11pm Atherosclerosis of coronary artery of [place] heart without angina pectoris chronic July 05 2:11pm Paroxysmal atrial fibrillation chron ic July 05, 2025 2:11pm [facility] Work Phone: [phone]) 168-270006-29-2025 Discharge summary [facility] Medical Records Department [address] [place] [address] Emergency Department Summary 03/17/25 MR#: [id number] Acct: [id number] Name: JESSEE RUST Rep #:[id number] : 1935 89 From: Hai Rand DO PCP: Dr. Umm Mario MD Status:R EG ER Location: ED HPI History of Present Illness Chief Complaint: Nosebleed Informant: patient Narrative Narrative: Patient is an 89-year-old male with history of chronic atrial fibrillation on Eliquis. He states hehas been having intermittent and recurrent right-sided nosebleeds for the past 3 weeks. He states he was seen by ENT and underwent a cautery procedure roughly a week ago as well. He states that therehas been no recent trauma and he denies sick symptoms with nasal congestion and recurrent nose blowing. However he is continue to have intermittent bleeds. He states hewas bleeding last night but wasable to get under control. However he awoke this morning around 4 AM and had bleeding out of the right nostril that would not resolve with pressure and secondary to this he presents for evaluation. 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 [...] ea 04/30/23 Unkn own Rx Nebulizer System) oroqtpie-jug-zreyi acid 0.4 1 tab PO DAILY supplement [...] As his vitals are stable and this isbeen a intermittent issue over the past fewweeks [...] any overflow bleeding into the left nostril nordid he had any bleeding into the posterior pharynx indicating there was hemostasis of the anterior epistaxis. 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 Follow-up with Dr. Rainey/ENT forrepeat evaluation and do not remove your packing until you are evaluated by him. Return to the ER should you have any further concerns Print Language: Monegasque Disposition Disposition: Home, Self Care What to do if you have Problems For any increased pain, shortness of breath, bleeding, nausea or vomiting, chestpain, or any unexpected problems, contact your Primary Care Provider. Call [facility] ([phone]) or report tothe closest Emergency Room. Call 911 if necessary. 03/17/25 0701 Cosigner Signature (if applicable): CC: Dr. Umm Mario MD ~ Signed [facility]06-22-2025 Discharge summary [facility] Medical Records Department [address] [place] [address] Emergency Department Summary 03/10/25 MR#: [id number] Acct: [id number] Name: JESSEE RUST Rep #:[id number] : 1935 89 From: Marisol LUEVANO PCP: Dr. Umm Mario MD Status:R EG ER Location: ED HPI History of Present Illness Chief Complaint: Lower Extremity Injury Narrative Narrative: Patient resenting today with pain to his right foot after he was practicing balancing exercises Tuesday. He was standing on 1 foot while moving the oppositefoot intx-byw-fizju. He is not of the exact mechanism of injury but reports that after performing these exercises he started to have pain in the right foot. He is able to ambulate but it is painful. He denies any other injury. 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 [...] ea 04/30/23 Unkn own Rx Nebulizer System) tqgeznxr-dyr-mtvgu acid 0.4 1 tab PO DAILY supplement [...] hydrocortisone 2.5 % topical cream 1 applic [place] BID-QID PRN 01/04/24 Unknown Rx with perineal [...] Denies Abrasions Neurologic Neurologic: Denies paresthesias EXAM Physical Exam Const Vital Signs: 03/10/25 16:06 [...] no overlying bruising. There is edema to theright foot in comparison with the left. No [...] rashes or lesions noted and no wounds Physical Exam Const Vital Signs: 03/10/25 16:06 03/10/25 17:13 Temperature 97.2 F L 97.9 F Temperature Source Temporal Pulse Rate 62 63 Respiratory Rate 16 16 Blood Pressure 128/76 H 128/76 H Blood Pressure Mean 93 93 Pulse Ox 99 97 Oxygen Delivery Method Room Air [facility] Narrative Medical decision making narrative: Patient presenting today with right foot pain and swelling that has been ongoingsince Tuesday after he was performing 1 leg balancing exercises Tuesday. He has point tenderness to the base of the fifthmetatarsal, x-ray of the foot will be obtained [...] No radiographic foreign body. No acute softtissue abnormalities.Minimal diffuse soft tissue swelling. Consider dedicated ankle radiograph if there is concern for ankle pathology. Reading Location: [facility] MDM Radiography Diagnostic Testing: Clinical Impression(s) from Imaging Studies Foot X-Ray 03/10/25 16:25 IMPRESSION: Mild diffuse osteopenia. Scattered moderate degenerative changes predominantly about the intertarsal joint spaces. No acute fracture or dislocations. No radiographic foreign body. No acute softtissue abnormalities.Minimal diffuse soft tissue swelling. Consider dedicated ankle radiograph if there is concern for ankle pathology. Reading Location: [id number] Treatment and Re-Evaluation Narrative: Attending note: I [...] foot did not worsen the pain. Three-view x- rayright foot interpreted myself and read by radiology negative for fractures patient placed in a postop shoe. He will continue Tylenol. He will avoid. Hisbalance exercise at this timeuntil symptoms improved. All questions were answered. Discharge [...] % cream with perineal applicator 1 applic OK BID-QID PRN (Reason: hemorrhoids) Qty: 30 1RF [...] BID Qty: 60 11RF Primary Care Provider: Umm Mario Referrals: Umm Mario MD [Primary Care Provider] - 1 Week Activity Restrictions/Additional Instructions: Follow-up with your PCP in 1 week if no improvement of your pain, ice the area, elevate to help with swelling, return for any other concerns. Take Tylenol as needed for your pain. Print Language: Monegasque Disposition Disposition: Home, Self Care What to do if you have Problems For any increased pain, shortness of breath, bleeding, nausea or vomiting, chestpain, or any unexpected problems, contact your Primary Care Provider. Call [facility] ([phone]) or report tothe closest Emergency Room. Call 911 if necessary. 03/10/25 1654 Cosigner Signature (if applicable): 03/10/25 1719 CC: Dr. Umm Mario MD ~ Signed [facility]06-22-2025 Radiology Diagnostic study note [facility] Imaging Services [address] [place] [address] Foot min 3 Views MR#: [id number] Acct: [id number] Name: JESSEE RUST Rep #: [id number] : 1935 M 89 From: Melody Younger MD PCP: Dr. Umm Mario MD Status: P RE ER Study:Foot min 3 Views Date of Exam: Exam# [id number] Ordering Dr: Marisol Meza PROCEDURE: FOOT MIN 3 VIEWS 03/10/2025 REASON FOR EXAM: PAIN TECHNIQUE: FOOT MIN 3 VIEWS COMPARISON: 10/15/2019 RAD/Foot min 3 Views IMPRESSION: Mild diffuse osteopenia. Scattered moderate degenerative changes predominantly about the intertarsal joint spaces. No acute fracture or dislocations. No radiographic foreign body. No acute softtissue abnormalities.Minimal diffuse soft tissue swelling. Consider dedicated ankle radiograph if there is concern for ankle pathology. Reading Location: [facility] CC: Dr. Umm Mario MD; BASSEM Soria ~ Front Office Secretary: Signed [facility]06-22-2025 Discharge summary Author Marisol Crum [facility] Note Date/Time March 10, 2025 5:19 pm [facility] Medical Records Department [address] [place] [address] Emergency Department Summary 03/10/25 MR#: [id number] Acct: [id number] Name: JESSEE RUST Rep #:[id number] : 1935 89 From: Marisol LUEVANO PCP: Dr. Umm Mario MD Status:R EG ER Location: ED HPI <BASSEM Soria - Last Filed: 03/10/25 16:54> History of Present Illness Chief Complaint: Lower Extremity Injury Narrative Narrative: Patient resenting today with pain to his right foot after he was practicing balancing exercises Tuesday. He was standing on 1 foot while moving the oppositefoot mfmo-cfq-atnpx. He is not of the exact mechanism of injury but reports that after performing these exercises he started to have pain in the right foot. He is able to ambulate but it is painful. He denies any other injury. 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 Cholelithiasis without obstruction Hyperlipidemia Home Medications ?Medication ?Instructions ?Recorded ?Last Taken ?Type aspirin 81 mg tablet,delayed 81 mg PO DAILY@0800 [facility] 12/06/16 12/19/23 History release Held on [...] ea 04/30/23 Unkn own Rx Nebulizer System) wjaqcgkx-opj-zicor acid 0.4 1 tab PO DAILY supplement [...] hydrocortisone 2.5 % topical cream 1 applic [place] BID-QID PRN 01/04/24 Unknown Rx with perineal [...] <BASSEM Soria - Last Filed: 03/10/25 16:54> [facility] Narrative Medical decision making narrative: Patient [...] is concern for ankle pathology. Reading Location: [facility] <Dr. Rolan Peña, DO - Last [...] is concern for ankle pathology. Reading Location: [facility] Treatment and Re-Evaluation Narrative: Attending note: [...] % cream with perineal applicator 1 applic OK BID-QID PRN (Reason: hemorrhoids) Qty: 30 1RF [...] BID Qty: 60 11RF Primary Care Provider: Umm Mario Referrals: Umm Mario MD [Primary Care Provider] - 1 Week Activity Restrictions/Additional Instructions: Follow-up with your PCP in 1 week if no improvement of your pain, ice the area, elevate to help with swelling, return for any other concerns. Take Tylenol as needed for your pain. Print Language: Monegasque Disposition Disposition: Home, Self Care What to do if you have Problems For any increased pain, shortness of breath, bleeding, nausea or vomiting, chestpain, or any unexpected problems, contact your Primary Care Provider. Call [facility] ([phone]) or report to the closest Emergency Room. Call 911 if necessary. 03/10/25 1654 <Electronically signed by Marisol LUEVANO> Cosigner Signature (if applicable): 03/10/25 1719 <Electronically signed by Rolan Rubio> CC: Dr. Umm Mario MD ~ Signed [facility] Work Phone: 1(127) 862-194006-03-2025 Evaluation note* Diagnosis Onset Date Resolution Status Admit Date Anemia chronic February 19, 2025 2:15pm Aortic stenosis chronic February 19, 2025 2:15pm Atherosclerosis of coronary artery of [place] heart without angina pectoris chronic February 19, 2025 2 :15pm CHF (congestive heart failure) chron ic February 19, 2025 2:15pm Hyperlipidemia chronic February 19, 2025 2:15pm Paroxysmal atrial fibrillation chron ic February 19, 2025 2:15pm Sinus bradycardia chronic February 2:15pm Bradycardia acute March 21 10:51am Aortic stenosis chronic March 21, 2025 10:51am Atherosclerosis of coronary artery of [place] heart without angina pectoris chronic March 21, 2025 1 0:51am Paroxysmal atrial fibrillation chron ic March 21, 2025 10:51am Chronic anticoagulation inactive [facility] 2024 10:51am Lower leg edema acute April 1:44pm Right-sided nosebleed acute Apr 1:44pm Bradycardia acute May 08, 2025 10:18am Chest pain acute May 08, 2 025 10:18am Light-headed feeling acute 2024 10:18am CHF (congestive heart failure) chron ic May 08, 2025 10:18am Fatigue acute May 2:54pm 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, 2025 2:54pm Atrial fibrillation chronic Sept mb2024 2:54pm Asthma chronic May 2:33pm [facility] Work Phone: 1([phone]) 479-450505-29-2025 Evaluation note* Diagnosis Onset Date Resolution Status Admit Date Asthma chronic February 14, 2025 2:05pm Atrial fibrillation chronic January 182024 2:05pm Debility chronic February 14, 2025 2:05pm Essential hypertension chronic Ma 2024 2:05pm Hyperlipidemia chronic February 14, 2025 2:05pm Anemia chronic February 19, 2025 2:15pm Aortic stenosis chronic February 19, 2025 2:15pm Atherosclerosis of coronary artery of [place] heart without angina pectoris chronic February 19, 2025 2 :15pm CHF (congestive heart failure) chron ic February 19, 2025 2:15pm Hyperlipidemia chronic February 19, 2025 2:15pm Paroxysmal atrial fibrillation chron ic February 19, 2025 2:15pm Sinus bradycardia chronic February 2:15pm Bradycardia acute March 21 10:51am Aortic stenosis chronic March 21, 2025 10:51am Atherosclerosis of coronary artery of [place] heart without angina pectoris chronic March 21, 2025 1 0:51am Paroxysmal atrial fibrillation chron ic March 21, 2025 10:51am Chronic anticoagulation inactive [facility] 2024 10:51am [facility] Work Phone: 1(601) 273-994705-29-2025 Evaluation note* Diagnosis Onset Date Resolution Status Admit Date Asthma chronic February 14, 2025 2:05pm Atrial fibrillation chronic January 182024 2:05pm Debility chronic February 14, 2025 2:05pm Essential hypertension chronic Ma y 2024 2:05pm Hyperlipidemia chronic February 14, 2025 2:05pm Anemia chronic February 19, 2025 2:15pm Aortic stenosis chronic February 19, 2025 2:15pm Atherosclerosis of coronary artery of [place] heart without angina pectoris chronic February 19, 2025 2 :15pm CHF (congestive heart failure) chron ic February 19, 2025 2:15pm Hyperlipidemia chronic February 19, 2025 2:15pm Paroxysmal atrial fibrillation chron ic February 19, 2025 2:15pm Sinus bradycardia chronic February 2:15pm Bradycardia acute March 21 10:51am Aortic stenosis chronic March 21, 2025 10:51am Atherosclerosis of coronary artery of [place] heart without angina pectoris chronic March 21, 2025 1 0:51am Paroxysmal atrial fibrillation chron ic March 21, 2025 10:51am Chronic anticoagulation inactive J samara2024 10:51am Lower leg edema acute April 1:44pm Right-sided nosebleed acute Apr 1:44pm [facility] Work Phone: 1(145) 105-266505-29-2025 Evaluation note* Diagnosis Onset Date Resolution Status Admit Date Asthma chronic February 14, 2025 2:05pm Atrial fibrillation chronic January 182024 2:05pm Debility chronic February 14, 2025 2:05pm Essential hypertension chronic Ma y 2024 2:05pm Hyperlipidemia chronic February 14, 2025 2:05pm Anemia chronic February 19, 2025 2:15pm Aortic stenosis chronic February 19, 2025 2:15pm Atherosclerosis of coronary artery of [place] heart without angina pectoris chronic February 19, 2025 2 :15pm CHF (congestive heart failure) chron ic February 19, 2025 2:15pm Hyperlipidemia chronic February 19, 2025 2:15pm Paroxysmal atrial fibrillation chron ic February 19, 2025 2:15pm Sinus bradycardia chronic February 2:15pm Bradycardia acute March 21 10:51am Aortic stenosis chronic March 21, 2025 10:51am Atherosclerosis of coronary artery of [place] heart without angina pectoris chronic March 21, 2025 1 0:51am Paroxysmal atrial fibrillation chron ic March 21, 2025 10:51am Chronic anticoagulation inactive J samara 2024 10:51am Lower leg edema acute April 1:44pm Right-sided nosebleed acute Aug ust 2024 1:44pm Bradycardia acute May 08, 2025 10:18am Chest pain acute May 08, 2 025 10:18am Light-headed feeling acute Augu st 2024 10:18am CHF (congestive heart failure) chron ic May 08, 2025 10:18am [facility] Work Phone: 1(190) 877-859804-28-2025 Instructions* Patient Instructions* Shawn Shea MD - 01/14/2025 3:00 PM EDT You will be dilated on your next visit. This will likely make your vision blurry for several hours, and you should strongly consider bringing a cab driver. [facility]04-28-2025 History of Present illness Narrative* Shawn Shea MD - 01/14/2025 2:30 PM EDT New from [place] Tmax: <22; Pachy: -, - Lasers and [...] of its relevant components. documented in this encounterUk Healthcare04-28-2025 NoteHNO ID: [id number] Author: SHAWN SHEA MD Service: ? Author [...] and agree with all of its relevant components.[facility]04-17-2025 Procedure note [facility] Speech Pathology [address] [place] [address] Modified Barium Swallow Study MR#: [id number] Acct: [id number] Name: JESSEE RUST Rep #:[id number] : 1935 89 From: Jodee Samayoa, [facility]-FINANCIAL ADMINISTRATOR Modified Barium Swallow Patient Information Study Date: 01/02/25 Study Time: 13:00 Direct Billable Minutes: 73 Total Minutes procedure & reportin Diagnosis: Dysphagia R13.10 Referring Physician: Umm Mario Reason for Referral: Assess swallow function, [...] cup: Result: 1= does not enter airway [place] Thick Liquid via large single sip: cup: [...] Status Active ST Patient: Active Contact Information [facility] Speech Therapy:: Jodee Miller M.A. CCC-FINANCIAL ADMINISTRATOR? Speech-Language Pathologist?? [facility] [address] [place] [address]? [email or web address]?? [phone] 01/03/25 0823 ARMANI Smart-FINANCIAL ADMINISTRATOR> Date/Time Jodee Miller M.A., CCC-FINANCIAL ADMINISTRATOR Co-Signature Required for all Medicare patients Date/Time Co-Signature CC: ~ [facility]03-28-2025 Evaluation note* Diagnosis Onset Date Resolution Status [...] 2025 2:15pm Atherosclerosis of coronary artery of [place] heart without angina pectoris chronic February 19, 2025 2 :15pm CHF (congestive heart failure) chron ic February 19, 2025 2:15pm Hyperlipidemia chronic February 19, 2025 2:15pm Paroxysmal atrial fibrillation chron ic February 19, 2025 2:15pm Sinus bradycardia chronic February 2:15pm Bradycardia acute March 21 10:51am Aortic stenosis chronic March 21, 2025 10:51am Atherosclerosis of coronary artery of [place] heart without angina pectoris chronic March 21, 2025 1 0:51am Paroxysmal atrial fibrillation chron March 21, 2025 10:51am Chronic anticoagulation inactive J [facility] 2024 10:51am [facility] Work Phone: 1(301) 456-462703-14-2025 Evaluation note* Diagnosis Onset Date Resolution Status [...] 2025 2:15pm Atherosclerosis of coronary artery of [place] heart without angina pectoris chronic February 19, 2025 2 :15pm CHF (congestive heart failure) chron ic February 19, 2025 2:15pm Hyperlipidemia chronic February 19, 2025 2:15pm Paroxysmal atrial fibrillation chron ic February 19, 2025 2:15pm Sinus bradycardia chronic February 2:15pm [facility] Work Phone: 1(437) 890-776303-11-2025 Telephone encounter Note* Telephone Encounter - Alexis [...] alternative measures Alexis Green MD Ophthalmology Resident [facility] Work Phone: [phone] Miscellaneous Notes* Telephone Encounter - Alexis Green [...] Green MD Ophthalmology Resident documented in this encounterUk Healthcare03-10-2025 Instructions* Patient Instructions* Shawn Shea MD - 11/26/2024 2:03 PM EDT You will be dilated on your next visit. This will likely make your vision blurry for several hours, and you should strongly consider bringing a cab driver. Medication Eye # times daily Rocklatan (white cap) BOTH 1x daily (bedtime) Simbrinza (light green cap) BOTH 2x daily *please remember to wait at least 3 minutes between different drops in the same eye. 11/26/24 documented in this encounterUk [facility]03-10-2025 NoteDate of Procedure 11/26/2024. Associate Quality Engineer Information Bench Loom Weaver: JOSÉ MANUEL. Start time: 1:44 PM. Stop time: 1:50 PM. NFL Interpretation Right Eye Diffuse loss. Left Eye Diffuse loss. Interval Change Right Eye Stable. Left Eye Worse.[id number] NoteHNO ID: [id number] Author: SHAWN SHEA MD Service: ? Author Type: Physician Type: Progress Notes Filed: 01/07/2025 12:24 Note Text: New from [place] Tmax: <22; Pachy: -, - Lasers and [...] and agree with all of its relevant components.[facility]03-10-2025 History of Present illness Narrative* Shawn Shea MD - 11/26/2024 1:58 PM EDT New from [place] Tmax: <22; Pachy: -, - Lasers and [...] of its relevant components. documented in this encounterUk [facility]02-27-2025 Evaluation note* Diagnosis Onset Date Resolution Status [...] December 14 1:29pm CHF (congestive heart failure) [facility] December 14, 2024 1:29pm Asthma chronic February 14, 2025 2:05pm Atrial fibrillation chronic January 182024 2:05pm Debility chronic February 14, 2025 2:05pm Essential hypertension chronic Ma 2024 2:05pm Hyperlipidemia chronic February 14, 2025 2:05pm Anemia chronic February 19, 2025 2:15pm Aortic stenosis chronic February 19, 2025 2:15pm Atherosclerosis of coronary artery of [place] heart without angina pectoris chronic February 19, 2025 2 :15pm CHF (congestive heart failure) [facility] February 19, 2025 2:15pm Hyperlipidemia chronic February 19, 2025 2:15pm Paroxysmal atrial fibrillation [facility] February 19, 2025 2:15pm Sinus bradycardia chronic February 2:15pm [facility] Work Phone: 1(886) 535-967002-04-2025 Evaluation note* Diagnosis Onset Date Resolution Status Admit Date Anemia chronic October 23, 2024 1:53pm Aortic stenosis chronic October 23, 2024 1:53pm Atherosclerosis of coronary artery of [place] heart without angina pectoris chronic October 23 1:53pm CHF (congestive heart failure) [facility] October 23, 2024 1:53pm Hyperlipidemia chronic October 232024 1:53pm Paroxysmal atrial fibrillation [facility] October 23, 2024 1:53pm Sinus bradycardia chronic uar 2024 1:53pm Swallowing disorder acute 2024 3:01pm Anemia chronic November 15, 2024 3:01pm Asthma chronic November 15, 2024 3:01pm Essential hypertension chronic 2024 3:01pm Hyperlipidemia chronic October 212024 3:01pm Exposure to COVID-19 virus acute November 30, 2024 1:36pm Sore throat acute November 30, 2 025 1:36pm Asthma chronic December 14 1:29pm CHF (congestive heart failure) chron December 14, 2024 1:29pm [facility] Work Phone: 1(446) 615-152502-04-2025 Evaluation note* Diagnosis Onset Date Resolution Status Admit Date Anemia chronic October 23, 2024 1:53pm Aortic stenosis chronic October 23, 2024 1:53pm Atherosclerosis of coronary artery of [place] heart without angina pectoris October 23 1:53pm [...] 2:05pm Hyperlipidemia chronic February 14, 2025 2:05pm [facility] Work Phone: 1(290) 914-379602-04-2025 Evaluation note* Diagnosis Onset Date Resolution Status Admit Date Anemia chronic October 23, 2024 1:53pm Aortic stenosis chronic October 23, 2024 1:53pm Atherosclerosis of coronary artery of [place] heart without angina pectoris chronic October 23 [...] 2025 2:15pm Atherosclerosis of coronary artery of [place] heart without angina pectoris chronic February 19, 2025 2 :15pm CHF (congestive heart failure) chron ic February 19, 2025 2:15pm Hyperlipidemia chronic February 19, 2025 2:15pm Paroxysmal atrial fibrillation [facility] ic February 19, 2025 2:15pm Sinus bradycardia chronic February 2:15pm [facility] Work Phone: 1([phone]) 838-242401-15-2025 Telephone encounter Note* Telephone Encounter - Johnathoncezarsara Adm Leesa - 10/03/2024 3:10 PM EST Images from the original note were not included. spoke to pt Shawn Shea MD You; Farhat Herrera MD16 minutes ago (2:52 PM) Restart alphagan three times a day both eyes [facility] Work Phone: [phone]) 685-703401-15-2025 Miscellaneous Notes* Telephone Encounter - Leesa Stratton [...] what should he do at this point? [phone] he was offered an appt on 10/08 at [facility] but he declined Shawn Shea MD filed [...] agree withall of it documented in this encounterUk Healthcare01-15-2025 Telephone encounter Note * Telephone Encounter - Leesa Stratton - 10/03/2024 2:19 PM EST patient reporting that he has not been taking his alphagan since 08/12, he was on the med for 2 days and then developed OU conjunctivitis, he took medicine for that but never went back on the alphagan what should he do at this point? [phone] he was offered an appt on 10/08 at [facility] but he declined Shawn Shea MD filed [...] stated above and agree withall of it [facility]11-26-2024 NoteHNO ID: [id number] Author: PRIYA SALEH, CHRISTY Service: ? Author Type: STUDY MANAGER Type: Progress Notes Filed: 08/14/2024 10:07 Note [...] Monse Saleh, OD August 14, 2024 10:03 [facility]11-26-2024 History of Present illness Narrative* Priya [...] 14, 2024 10:03 AM documented in this encounterUk Healthcare11-26-2024 Instructions* Patient Instructions* Priya Saleh, OD - 08/14/2024 9:22 AM EST Use PF Systane 5 minutes before each dose of Brimonidine Use Systane, Refresh or Blink gel nightly before bed in both eyes Use warm compresses daily documented in this encounterUk Healthcare11-21-2024 Evaluation note* Diagnosis Onset Date Resolution Status [...] 2024 1:53pm Atherosclerosis of coronary artery of [place] heart without angina pectoris chronic October 23 [...] 2024 3:01pm Hyperlipidemia chronic October 212024 3:01pm [facility] Work Phone: 1([phone]) 628-452511-11-2024 Instructions* Patient Instructions* Shawn Shea MD - 07/30/2024 2:10 PM EST You will be dilated on your next visit. This will likely make your vision blurry for several hours, and you should strongly consider bringing a cab driver. documented in this encounterUk Healthcare11-11-2024 NoteDate of Procedure 07/30/2024. Reliability Right Eye Poor. Left Eye Poor. Interpretation Right Eye Arcuate defect, Altitudinal defect, Central defect. Left Eye Arcuate defect, Altitudinal defect, Central defect.[id number] NoteHNO ID: [id number] Author: SHAWN SHEA MD Service: ? Author Type: Physician Type: Progress Notes Filed: 07/30/2024 14:11 Note Text: New from [place] Tmax: <22; Pachy: -, - Lasers and [...] and agree with all of its relevant components.[facility]11-11-2024 History of Present illness Narrative* Shawn Shea MD - 07/30/2024 2:05 PM EST New from [place] Tmax: <22; Pachy: -, - Lasers and [...] of its relevant components. documented in [place] [address]32-27-2024 Telephone encounter Note * Telephone Encounter - Joe Mikaela Balderas - 05/15/2024 10:14 AM EDT He's calling [...] 03/12/2024 2:50 PM Status: Signed New from [place] Tmax: <22; Pachy: -, - Lasers and [...] # band K both eyes - stable [facility]08-27-2024 Miscellaneous Notes* Telephone Encounter - JoeMikaela Cronin - 05/15/2024 10:14 AM EDT He's calling [...] 03/12/2024 2:50 PM Status: Signed New from [place] Tmax: <22; Pachy: -, - Lasers and [...] both eyes - stable documented in this encounterUk Healthcare06-26-2024 Telephone encounter Note * Telephone Encounter - Lucina Zhang LSW - 03/14/2024 1:38 PM EDT printed circuit board reworker received a consult order from Dr. Shea who is referring the patient to the [facility] for low vision services. printed circuit board reworker called the patient and discussed the referral and sight center services. Patient states that the sight center is too far from [place] and has requested to send him vision resources. printed circuit board reworker and patient discussed use of I-Phone and I-Pad vision accessibility for improved reading and using AI Kamala for additional assistance with reading information. Patient is very comfortable using assistive technology and prefers to the methods he is currently using for visual adaptations. Discussed at length [employer] YouTube videos for Hytle learning and other informationfrom various websites that [...] it and get back to this SW. printed circuit board reworker to email vision resources. Patient will reach out to as needed. Contact information provided. [facility]06-26-2024 Miscellaneous Notes* Telephone Encounter - Lucina Zhang LSW - 03/14/2024 1:38 PM EDT printed circuit board reworker received a consult order from Dr. Shea who is referring the patient to the [facility] for low vision services. printed circuit board reworker called the patient and discussed the referral and sight center services. Patient states that the sight center is too far from [place] and has requested SW to send him vision resources. printed circuit board reworker and patient discussed use of I-Phone and I-Pad vision accessibility for improved reading and using AI Kamala for additional assistance with reading information. Patient is very comfortable using assistive technology and prefers to the methods he is currently using for visual adaptations. Discussed at length [employer] videos for Hytle learning and other informationfrom various websites that [...] it and get back to this SW. printed circuit board reworker to email vision resources. Patient will reach out to as needed. Contact information provided. documented in this encounterUk Healthcare06-24-2024 Note* Addendum Note - Shawn Shea MD - 03/12/2024 2:52 PM EDTAddended by: SHAWN SHEA on: 03/12/2024 02:52 PM Modules accepted: Orders [facility]06-24-2024 Miscellaneous Notes* Addendum Note - Shawn Shea MD - 03/12/2024 2:52 PM EDTAddended by: SHAWN SHEA on: 03/12/2024 02:52 PM Modules accepted: Orders documented in this encounterUk Healthcare06-24-2024 NoteDate of Procedure 03/12/2024. Associate Quality Engineer Information Bench Loom Weaver: NOE. Start time: 2:37 PM. Stop time: 2:37 PM. NFL Interpretation Right Eye Diffuse loss. Left Eye Diffuse loss. Interval Change Right Eye Stable. Left Eye Stable.[id number] History of Present illness Narrative* Shawn Shea MD - 03/12/2024 1:45 PM EDT New from [place] Tmax: <22; Pachy: -, - Lasers and [...] of its relevant components. documented in this encounterUk Healthcare06-22-2024 Telephone encounter Note * Telephone Encounter - Alexis Green MD - 03/10/2024 11:21 AM EDT Received page that patient had called. Spoke to them on the phone at 11:24 AM. Patient has a history of POAG follows with Dr. Shea Patient requesting med refills sent to the [facility]. Refills sent Alexis Green MD Ophthalmology Resident [facility]06-22-2024 Miscellaneous Notes* Telephone Encounter - Alexis Green MD - 03/10/2024 11:21 AM EDT Received page that patient had called. Spoke to them on the phone at 11:24 AM. Patient has a history of POAG follows with Dr. Shea Patient requesting med refills sent to [facility] on [address] [facility]. Refills sent Alexis Green MD Ophthalmology Resident documented in this encounterUk Healthcare04-25-2024 Miscellaneous Notes* Telephone Encounter - Malu Elias COA - 01/12/2024 3:37 PM EDT Spoke with Marta from [place] and advised her the drops are not duplicates and the patient does need to use both drops. * Telephone Encounter - Tania Beckett - 01/02/2024 12:26 PM EDT Marta from [facility] calling to let Dr. Shea that when she reconciled the patient's eye drops the computer showed them has duplicates. They are the brimonidine 0.01% drop and ROCKLATAN 0.02-0.005% ophthalmic solution. She believes they are the same. She can be reached at [phone]. documented in this encounterUk Healthcare04-25-2024 Telephone encounter Note * Telephone Encounter - Malu Elias COA - 01/12/2024 3:37 PM EDT Spoke with Marta from [place] and advised her the drops are not duplicates and the patient does need to use both drops. [facility]04-15-2024 Telephone encounter Note* Telephone Encounter - Tania Beckett - 01/02/2024 12:26 PM EDT Marta from [facility] calling to let Dr. Shea that when she reconciled the patient's eye drops the computer showed them has duplicates. They are the brimonidine 0.01% drop and ROCKLATAN 0.02-0.005% ophthalmic solution. She believes they are the same. She can be reached at [phone]. [facility]04-12-2024 Discharge summary Author Arsenio Mcgregor [facility] December 30, 2023 1:55pm Note Date/Time December 30, 2023 1:4 6pm [facility] Medical Records Department [address] [place] [address] Discharge Summary 12/30/23 1345 MR#: [id number] Acct: [id number] Name: JESSEE RUST Rep #:[id number] : 1935 88 From: Arsenio Mcgregor MD PCP: Dr. Umm Mario MD Status:A DM IN Location: [place] [address] Providers Date of Admission: 12/08/23 Primary Care Physician: Dr. Umm Mario MD Reason For Visit: N STEMI [...] Code(s): I25.10 - Atherosclerotic heart disease of [place] coronary artery without angina pectoris Plan 86 [...] tablet,delayed release 81 mg PO DAILY@0800 heart [facility] 12/06/16 travoprost 0.004 % eye drops [...] mg PO QODAY Supplement #90 tabs 11/23/23 kzpiwgen-mzj-bjbkq acid 0.4 mg-lycopene 300 mcg-lutein 250 mcg [...] removal of stent Discharge home with 01/01/2024, [facility] PT/OT/RN. Physical Exam Const alert [...] % (Auto) 44.5 L, Lymph % (Auto)35.0, Grundy % (Auto) 13.6 H, Eos % (Auto) [...] pain Additional Instructions: Discharge home with 01/01/2024, [facility] PT/OT/RN. Please Follow Up With: Darien Lee MD When: As scheduled. Meaningful Use Info Meaningful Use Diagnoses (Choose all that apply): None applicable Discharge Plan Admission Admit Date/Time: 12/08/23 13:05 Primary Reason for Your Visit: Debility. Attending Provider: Arsenio Mcgregor Chi Primary Care Provider: Umm Mario Instructions Additional Instructions / Restrictions: Discharge home with 01/01/2024, [facility] PT/OT/RN. Discharge Orders/Prescriptions Prescriptions: New [...] Instructions: As directed Referrals / Follow Up: Umm Mario MD [Primary Care Provider] - 01/04/24 10:00 am Disposition Disposition (needs filled in before D/C Order can be placed): Home Health Service 12/30/23 8331 <Electronically signed by Arsenio Mcgregor MD> Cosigner Signature (if applicable): CC: Dr. Umm Mario MD; Dr. Arsenio Mcgregor MD~ Signed [facility] Work Phone: 1(613) 775-114504-03-2024 Discharge summary Author Darien Lee [facility] December 21, 2023 3:08pm Note Date/Time December 21, 2023 3:08 pm [facility] Medical Records Department [address] [place] [address] Instructions for Home/Discharge Instructions 12/21/23 1508 MR#: [id number] Acct: [id number] Name: JESSEE RUST Rep #:[id number] : 1935 88 From: Darien Lee MD PCP: Dr. Umm Mario MD Status:R EG [facility] Discharge Instructions Diet Discharge Diet: No restrictions Activity Discharge Activity: Return to Normal Activity and May Not Drive (while taking narcotic pain medications.) Dressing / Incision Call your doctor if you observe: Fever of 101 or Higher Follow Up Care Please Follow Up With: Darien Lee MD When: Call [phone] for an appointment Test Results: Test results from this visit will be discussed in further detail at your follow- up appointment, if applicable. Discharge Plan Admission Primary Reason for Your Visit: laser right stone Attending Provider: Darien Lee Primary Care Provider: Umm Mario Discharge Orders/Prescriptions Prescriptions: New ciprofloxacin HCl [...] Qty: 90 2RF Referrals / Follow Up: Umm Mario MD [Primary Care Provider] - Darien Lee MD [Med Staff - Active Staff] - Disposition Disposition (needs filled in before D/C Order can be placed): Home, Self Care 12/21/23 1508<Electronically signed by Darien Lee MD>Darien Lee MD CC: Dr. Umm Mario MD ~ Signed [facility] Work Phone: 1(345) 683-792404-03-2024 History and physical note Author Darien Lee [facility] December 21, 2023 3:08pm Note Date/Time December 21, 2023 3:08 pm [facility] Medical Records Department [address] [place] [address] History & Physical Exam 12/21/23 1508 MR#: [id number] Acct: [id number] Name: JESSEE RUST Rep #:[id number] : 1935 88 From: Darien Lee MD PCP: Dr. Umm Mario MD Status:R [facility] Location: [facility] HPI - General General Date of Service: 12/21/23 Chief Complaint: Right kidney stone HPI Narrative JESSEE RUST, is a 88 M who presents for laser of her right kidney stone and removal of stent [facility] Medical History Advanced directives, counseling/discussion Anemia Anginal equivalent Aortic stenosis Asthma Atherosclerosis of coronary artery of [place] heart without angina pectoris Atrial fibrillation BPH [...] #90 tabs 11/23/23 [Rx Last Taken 12/01/23] cuuyxorm-iik-ptdcf acid 0.4 mg-lycopene 300 mcg-lutein 250 mcg [...] MD> Cosigner Signature (if applicable): CC: Dr. Umm Mario MD; Dr. Darien Lee MD~ Signed [facility] Work Phone: 1(152) 363-936504-03-[address] [facility] 12-09-2023 Progress note Author Salome Childers [facility] December 09, 2023 12:05pm Note Date/Time December 09, 2023 11: 47am [facility] Medical Records Department [address] [place] [address] Progress Note - Pharmacy 12/09/23 1135 MR#: [id number] Acct: [id number] Name: JESSEE RUST Rep #:[id number] : 1935 88 From: Salome Childers PCP: Dr. Umm Mario MD Status:A DM IN Location: [facility]17[facility] TCU RX Drug Regimen Review Subjective/Objective Subjective/Objective: [...] 81 Mg Tablet PO 81 mg DAILY@0800 [facility] Administration Atorvastatin Calcium 20 mg 12/08/23 22:00 12/08/23 22:27 Atorvastatin Calcium 20 Mg Tablet PO 20 mg QHS [facility] Administration Bacitracin 1 applic 12/08/23 22:00 12/09/23 09:50 Bacitracin 15 Gm Tube TOPICAL 1 applic BID [facility] Administration Protocol Bisacodyl 10 mg 12/08/23 14:01 Bisacodyl 10 Mg Suppository RC DAILY PRN constipation Brimonidine Tartrate 1 ml 12/08/23 22:00 12/09/23 09:50 Brimonidine Tartrate 15 Ml Drops OPHTHALMIC 1 ml BID [facility] Administration Carvedilol 6.25 mg 12/08/23 17:00 12/09/23 09:48 Carvedilol 6.25 Mg Tablet PO 6.25 mg BIDCM [facility] Administration Protocol Cefdinir 300 mg 12/08/23 22:00 12/09/23 09:52 Cefdinir 300 Mg Capsule PO 12/13/23 10:01 300 mg BID [facility] Administration Cholecalciferol 50 mcg 12/09/23 10:00 12/09/23 09:55 Cholecalciferol (Vit D3) 25 Mcg Tablet (1,000 Units) PO 50 mcg DAILY [facility] Administration Compound Med 1 click 12/08/23 14:05 Arthritis Pain Compound 60 Click Tube TOPICAL DAILY PRN Pain Cyanocobalamin 1,000 mcg 12/09/23 10:00 12/09/23 09:55 Cyanocobalamin 500 Mcg Tablet PO 1,000 mcg DAILY [facility] Administration Ezetimibe 10 mg 12/09/23 10:00 12/09/23 09:55 Ezetimibe 10 Mg Tablet PO 10 mg DAILY JOSE Administration Famotidine 20 mg 12/09/23 10:00 12/09/23 09:52 Famotidine 20 Mg Tablet PO 20 mg DAILY JOSE Administration Ferrous Sulfate 325 mg 12/10/23 10:00 Ferrous Sulfate 325 Mg Tablet PO QODAY JOSE Finasteride 5 mg 12/09/23 10:00 12/09/23 09:53 Finasteride 5 Mg Tablet PO 5 mg DAILY JOSE Administration Furosemide 40 mg 12/09/23 10:00 12/09/23 09:51 Furosemide 40 Mg Tablet PO 40 mg DAILY JOSE Administration Protocol Guaifenesin 1,200 mg 12/08/23 22:00 12/09/23 09:52 Guaifenesin 1,200 Mg Tablet PO 1,200 mg 1000,2200 JOSE Administration Loratadine 10 mg 12/08/23 13:45 Loratadine [...] Senna/Docusate 1 tab PO BID, Dulcolax 10mg OK Daily PRN, Magnesium Citrate 300mL PO x1. [...] a lipid panel done since 07/2022 per [facility] EMR review.If clinically indicated, please consider obtaining a lipid panel if clinically indicated, thank you. Date Date of Note:: 12/09/23 12/09/23 1205 <Electronically signed by Salome Childers> Salome Childers Cosigner Signature (if applicable): CC: ~ Signed [facility] Work Phone: 1(300) 221-153303-21-2024 History and physical note Author Arsenio Mcgregor [facility] December 08, 2023 6:00pm Note Date/Time December 08, 2023 5:3 9pm [facility] Medical Records Department [address] [place] [address] History & Physical Exam 12/08/23 1730 MR#: [id number] Acct: [id number] Name: JESSEE RUST Rep #:[id number] : 1935 88 From: Arsenio Mcgregor MD PCP: Dr. Umm Mario MD Status:A DM IN Location: [facility] [id number] HPI - General General Date of Admission: 12/08/23 Date of Service: 12/08/23 Chief Complaint: Here for rehabilitation. HPI Narrative 12/02/2023 JESSEE RUST, is a 88 Male who presents [facility] with flank pain. Back pain, chest [...] UTI. Rocephin/Zithromax for pneumonia. 12/02/2023 Admit to [facility]. Hold Eliquis, continue Heparin drip, consult Cardiology, [...] to discharge home with . [facility] Medical History (Updated 12/08/23 @ 17:[address] Arsenio Mcgregor MD) Advanced directives, counseling/discussion Anemia Anginal equivalent Aortic stenosis Asthma Atherosclerosis of coronary artery of [place] heart without angina pectoris Atrial fibrillation BPH [...] #90 tabs 11/23/23 [Rx Last Taken 12/01/23] wiewbgpi-uuu-ncwpw acid 0.4 mg-lycopene 300 mcg-lutein 250 mcg tablet (Centrum Silver) 1 tab PO DAILY supplement 12/02/23 [History Last Taken 12/01/23] netarsudil 0.02 %-latanoprost 0.005 % eye drops ([place]) 1 drp ophthalmic (eye) QHS Eye drops [...] MD> Cosigner Signature (if applicable): CC: Dr. Umm Mario MD; Dr. Arsenio Mcgregor MD~ Signed [facility] Work Phone: 1(763) 644-341603-20-2024 Progress note Author [facility] December 07, 2023 4:28pm Note Date/Time December 07, 2023 12: 40pm [facility] Medical Records Department [address] [place] [address] Progress Note 12/07/23 1238 MR#: [id number] Acct: [id number] Name: JESSEE RUST Rep #:[id number] : 1935 88 From: Klaudia Gonzlaes MD PCP: Dr. Umm Mario MD Status:A DM IN Location: [place] [address] Subjective Subjective Patient seen and examined. He [...] (Auto) 60.6, Lymph % (Auto) 18.8 L, Grundy % (Auto) 17.2 H, Eos % (Auto) [...] Right Blood Culture - Final GNR lactose warehouse processor 12/02/23 13:20 Blood Culture (Wb) - Anticubital [...] medically stable. Charges/Coding Visit Charges Inpatient E&M: 79169 [facility] Hosp L2 12/07/23 1628 <Electronically signed by Klaudia Gonzales MD> Klaudia Gonzales MD Cosigner Signature (if applicable): CC: ~ Signed [facility] Work Phone: 1([phone]) 635-644903-20-[address] [facility] 12-07-2023 Progress note Author Vanessa Simmons [facility] December 07, 2023 11:50am Note Date/Time December 07, 2023 11: 50am [facility] Medical Records Department [address] [place] [address] Progress Note 12/07/23 1150 MR#: [id number] Acct: [id number] Name: JESSEE RUST Rep #:[id number] : 1935 88 From: Vanessa Simmons MD PCP: Dr. Umm Mario MD Status:A DM IN Location: [place] [address] Progress Note Notified that the patient had a run of nonsustained ventricular tachycardia. Patient asymptomatic. Check electrolytes and magnesium. Increase carvedilol to 6.25 mg twice daily. 12/07/23 1150 <Electronically signed by Vanessa Simmons MD> Vanessa Simmons MD Cosigner Signature (if applicable): CC: ~ Signed [facility] Work Phone: [phone]) 440-724803-19-2024 Consult note Author Darien Lee [facility] December 06, 2023 9:22pm Note Date/Time December 06, 2023 9:2 0pm [facility] Medical Records Department [address] [place] [address] Consultation - Urology 12/06/232117 MR#: [id number] Acct: [id number] Name: JESSEE RUST Rep #:[id number] : 1935 88 From: Darien Lee MD PCP: Dr. Umm Mario MD Status:A DM IN Location: [place] [address] Assessment & Plan Assessment/Plan (1) Ureteral calculi: [...] obstruction. pt. is o/w stable. [facility] Medical History Advanced directives, counseling/discussion Anemia Anginal equivalent Aortic stenosis Asthma Atherosclerosis of coronary artery of [place] heart without angina pectoris Atrial fibrillation BPH [...] #90 tabs 11/23/23 [Rx Last Taken 12/01/23] uspejbwq-efc-piojs acid 0.4 mg-lycopene 300 mcg-lutein 250 mcg [...] (Auto) 68.0, Lymph % (Auto) 16.5 L, Grundy % (Auto) 12.5 H, Eos % (Auto) [...] applicable): CC: Dr. Vanessa Simmons MD; Dr. Umm Mario MD; Dr. Darien Lee MD;Dr. Miguelito Laguna MD~ Signed [facility] Work Phone: 1([phone]) 319-969303-19-2024 Progress note Author Sally Zelaya [facility] December 06, 2023 8:07pm Note Date/Time December 06, 2023 8:0 7pm [facility] Medical Records Department [address] [place] [address] Progress Note - Hospitalist 12/06/232005 MR#: [id number] Acct: [id number] Name: JESSEE RUST Rep #:[id number] : 1935 88 From: Sally Zelaya MD PCP: Dr. Umm Mario MD Status:A DM IN Location: [place] [address] A/P w/ left lower [...] any concerns arise low threshold to involve digital marketing consultant. 12/06/232006 <Electronically signed by Sally Zelaya MD> Cosigner Signature (if applicable): CC: ~ Signed [facility] Work Phone: [phone]) 990-388603-19-2024 Progress note Author Klaudia [facility] December 06, 2023 3:37pm Note Date/Time December 06, 2023 3:3 7pm [facility] Medical Records Department [address] [place] [address] Progress Note 12/06/23 1529 MR#: [id number] Acct: [id number] Name: JESSEE RUST Rep #:[id number] : 1935 88 From: Klaudia Gonzales MD PCP: Dr. Umm Mario MD Status:A DM IN Location: [place] [address] Subjective Subjective Patient seen and examined. He [...] (Auto) 68.0, Lymph % (Auto) 16.5 L, Grundy % (Auto) 12.5 H, Eos % (Auto) [...] Right Blood Culture - Final GNR lactose warehouse processor 12/02/23 13:20 Blood Culture (Wb) - Anticubital [...] medically stable. Charges/Coding Visit Charges Inpatient E&M: 07742 Subs Hosp L2 12/06/23 1537 <Electronically signed by Klaudia Gonzales MD> Klaudia Gonzales MD Cosigner Signature (if applicable): CC: ~ Signed [facility] Work Phone: [phone]) 168-773403-19-2024 Progress note Author Vanessa Simmons [facility] December 06, 2023 12:18pm Note Date/Time December 06, 2023 12: 18pm [facility] Medical Records Department [address] [place] [address] Progress Note - Cardiology 12/06/23 1213 MR#: [id number] Acct: [id number] Name: JESSEE RUST Rep #:[id number] : 1935 88 From: Vanessa Simmons MD PCP: Dr. Umm Mario MD Status:A DM IN Location: [place] [address] Subjective Subjective Denies any complaints today. Sitting [...] (Auto) 68.0, Lymph % (Auto) 16.5 L, Grundy % (Auto) 12.5 H, Eos % (Auto) [...] (Auto) 68.0, Lymph % (Auto) 16.5 L, Grundy % (Auto) 12.5 H, Eos % (Auto) [...] root. Ordering Physician: Vanessa Simmons Referring Physician: Umm Mario Performed By: Gale Tarango RCS Physical [...] Cosigner Signature (if applicable): CC: ~ Signed [facility] Work Phone: 1(167) 798-575903-18-2024 Progress note Author Klaudia Gonzales [facility] December 05, 2023 3:53pm Note Date/Time December 05, 2023 1:3 6pm [facility] Medical Records Department [address] [place] [address] Progress Note 12/05/23 1319 MR#: [id number] Acct: [id number] Name: JESSEE RUST Rep #:[id number] : 1935 88 From: Klaudia Gonzales MD PCP: Dr. Umm Mario MD Status:A DM IN Location: [place] [address] Subjective Subjective Patient seen and examined today. [...] 71.3 H, Lymph % (Auto) 15.2 L, Grundy % (Auto) 11.6 H, Eos % (Auto) [...] Right Blood Culture - Final GNR lactose warehouse processor 12/02/23 13:20 Blood Culture (Wb) - Anticubital [...] to thrombocytopenia. Charges/Coding Visit Charges Inpatient E&M: 55268 Subs Hosp L2 12/05/23 8048 <Electronically signed by Klaudia Gonzales MD> Klaudia Gonzales MD Cosigner Signature (if applicable): CC: ~ Signed [facility] Work Phone: [phone]) [phone] Progress note Author Vanessa Simmons [facility] December 05, 2023 10:09am Note Date/Time December 05, 2023 10: 09am [facility] Medical Records Department [address] [place] [address] Progress Note 12/05/23 1009 MR#: [id number] Acct: [id number] Name: JESSEE RUST Rep #:[id number] : 1935 88 From: Vanessa Simmons MD PCP: Dr. Umm Mario MD Status:A DM IN Location: [facility] [id number] Progress Note Platelet count stable. Creatinine also stable. Recommend coronary angiography with possible revascularization. Risks benefits and alternatives explained to the patient. He understand these and wishes to proceed. 12/05/23 1009 <Electronically signed by Vanessa Simmons MD> Vanessa Simmons MD Cosigner Signature (if applicable): CC: ~ Signed [facility] Work Phone: 1([phone]) 264-171103-17-2024 Progress note Author Klaudia Gonzales [facility] December 04, 2023 1:16pm Note Date/Time December 04, 2023 12: 55pm [facility] Medical Records Department [address] [place] [address] Progress Note 12/04/23 1254 MR#: [id number] Acct: [id number] Name: JESSEE RUST Rep #:[id number] : 1935 88 From: Klaudia Gonzales MD PCP: Dr. Umm Mario MD Status:A DM IN Location: [place] [address] Subjective Subjective Patient seen and examined. He [...] 78.9 H, Lymph % (Auto) 8.8 L, Grundy % (Auto) 8.4, Eos % (Auto) 0.1, [...] to thrombocytopenia. Charges/Coding Visit Charges Inpatient E&M: 16679 Subs Hosp L3 12/04/23 1316 <Electronically signed by Klaudia Gonzales MD> Klaudia Gonzales MD Cosigner Signature (if applicable): CC: ~ Signed [facility] Work Phone: [phone]) 325-969903-17-2024 Progress note Author Vanessa Simmons [facility] December 04, 2023 12:28pm Note Date/Time December 04, 2023 12: 28pm [facility] Medical Records Department [address] [place] [address] Progress Note - Cardiology 12/04/23 1226 MR#: [id number] Acct: [id number] Name: JESSEE RUST Rep #:[id number] : 1935 88 From: Vanessa Simmons MD PCP: Dr. Umm Mario MD Status:A DM IN Location: [place] [address] Subjective Subjective Feels better. No complaints. Objective [...] 78.9 H, Lymph % (Auto) 8.8 L, Grundy % (Auto) 8.4, Eos % (Auto) 0.1, [...] 78.9 H, Lymph % (Auto) 8.8 L, Grundy % (Auto) 8.4, Eos % (Auto) 0.1,Baso [...] Cosigner Signature (if applicable): CC: ~ Signed [facility] Work Phone: [phone]) 487-791903-16-2024 Progress note Author Klaudia Gonzales [facility] December 03, 2023 4:37pm Note Date/Time December 03, 2023 4:3 7pm [facility] Medical Records Department [address] [place] [address] Progress Note 12/03/23 1623 MR#: [id number] Acct: [id number] Name: JESSEE RUST Rep #:[id number] : 1935 88 From: Klaudia Gonzalse MD PCP: Dr. Umm Mario MD Status:A DM IN Location: [place] [address] Subjective Subjective Patient seen and examined. He [...] / 394.58 Output Total 125 / 125 1 / Balance 606 / 606 393.58 / 393.58 [...] 81.4 H, Lymph % (Auto) 7.3 L, Grundy % (Auto) 7.4, Eos % (Auto) 0.7, Baso % (Auto) 0.4, Absolute Neuts (auto) 19.7 H, Absolute Lymphs (auto) 1.76, Nucleated RBC % 0, Differential Comment SCANNED, Diff Path Review May foll, APTT 71.0 H, Sodium 133L, Potassium 4.0, Chloride 100, Carbon Dioxide 26.0, Anion Gap 7, BUN 23 H, Creatinine 1.55 H, Estim Creat Clear Calc 42.75, Est GFR (MDRD) Af Amer 55 L, Est GFR (MDRD) Non-Af 45 L, BUN/Creatinine Ratio 14.8, Glucose 122 H, Calcium 8.5 Micro: Microbiology 12/02/23 14:36 Urine, Clean Catch Urine Culture - Preliminary GNR lactose warehouse processor 12/02/23 13:30 Blood Culture (Wb) - Anticubital [...] heparin drip Charges/Coding Visit Charges Inpatient E&M: 75132 [facility] Hosp L3 12/03/23 1637 <Electronically signed by Klaudia Gonzales MD> Klaudia Gonzales MD Cosigner Signature (if applicable): CC: ~ Signed [facility] Work Phone: [phone] Consult note Author Vanessa Simmons [facility] December 03, 2023 11:01am Note Date/Time December 03, 2023 10: 47am [facility] Medical Records Department [address] [place] [address] Consultation - Cardiology 12/03/23 1046 MR#: [id number] Acct: [id number] Name: JESSEE RUST Rep #:[id number] : 1935 88 From: Vanessa Simmons MD PCP: Dr. Umm Mario MD Status:A DM IN Location: [place] [address] Assessment & Plan Assessment/Plan (1) Non-STEMI (non-ST [...] also noted to be elevated. [facility] Medical History (Updated 12/03/23 @ 10:[address] Vanessa Simmons MD) Advanced directives, counseling/discussion Anemia Anginal equivalent Aortic stenosis Asthma Atherosclerosis of coronary artery of [place] heart without angina pectoris Atrial fibrillation BPH [...] #90 tabs 11/23/23 [Rx Last Taken 12/01/23] shadrmhr-ywq-voqae acid 0.4 mg-lycopene 300 mcg-lutein 250 mcg [...] 83.1 H, Lymph % (Auto) 11.5 L, Grundy % (Auto) 4.1, Eos % (Auto) 0.5, [...] Sl. Cloudy, Urine pH 7.0, Ur Specific [place] 1.010, Urine Protein 15 H, Urine Glucose [...] 81.4 H, Lymph % (Auto) 7.3 L, Grundy % (Auto) 7.4, Eos % (Auto) 0.7, [...] 83.1 H, Lymph % (Auto) 11.5 L, Grundy % (Auto) 4.1, Eos % (Auto) 0.5, [...] Sl. Cloudy, Urine pH 7.0, Ur Specific [place] 1.010, Urine Protein 15 H, Urine Glucose (UA) Normal, Urine Ketones Negative, Urine Occult Blood 50 H, Urine Nitrite Negative, Urine Bilirubin Negative, Urine Urobilinogen Normal, Ur Leukocyte Esterase 100 H, Urine RBC 0-5 SEEN, Urine WBC 10-25 SEEN 12/02/23 15:04: pH 7.48 H, Bicarbonate Actual 24.6, Base Excess 1, O2 Efhpuwnjfg21 L, ABG pCO2 33.1 L, ABG pO2 [...] 81.4 H, Lymph % (Auto) 7.3 L, Grundy % (Auto) 7.4, Eos % (Auto) 0.7, [...] applicable): CC: Dr. Vanessa Simmons MD; Dr. Umm Mario MD; Dr. Miguelito Laguna MD~ Signed [facility] Work Phone: [phone] 531-974603-15-2024 History and physical note Author Miguelito Laguna [facility] December 02, 2023 6:15pm Note Date/Time December 02, 2023 5:4 5pm [facility] Medical Records Department [address] [place] [address] H&P Exam - Hospitalist 12/02/23 1741 MR#: [id number] Acct: [id number] Name: JESSEE RUST Rep #:[id number] : 1935 88 From: Miguelito gan MD PCP: Dr. Umm Mario MD Status:A DM IN Location: [place] [id number] HPI - General General Date of [...] cardiology about his potential non-STEMI. [facility] Medical History (Updated 12/02/23 @ 17:40 by Saumya Presley) Advanced directives, counseling/discussion Anemia Anginal equivalent Aortic stenosis Asthma Atherosclerosis of coronary artery of [place] heart without angina pectoris Atrial fibrillation BPH [...] #90 tabs 11/23/23 [Rx Last Taken 12/01/23] vshqszsm-drp-yxmlu acid 0.4 mg-lycopene 300 mcg-lutein 250 mcg [...] 83.1 H, Lymph % (Auto) 11.5 L, Grundy % (Auto) 4.1, Eos % (Auto) 0.5, [...] Sl. Cloudy, Urine pH 7.0, Ur Specific [place] 1.010, Urine Protein 15 H, Urine Glucose [...] with colleagues Charges/Coding Visit Charges Inpatient E&M: 16973 Init Hosp L3 12/02/23 1815 <Electronically signed by Miguelito Laguna MD> Cosigner Signature (if applicable): CC: Dr. Umm Mario MD; Dr. Miguelito Laguna MD~ Signed [facility] Work Phone: [phone]) 417-114603-15-2024 Discharge summary Author Antonio James [facility] December 02, 2023 5:58pm Note Date/Time December 02, 2023 1:1 2pm [facility] Medical Records Department [address] [place] [address] Emergency Department Summary 12/02/23 MR#: [id number] Acct: [id number] Name: JESSEE RUST Rep #:[id number] : 1935 88 From: Antonio Taylor PCP: Dr. Umm Mario MD Status:A DM IN Location: [address] History of Present Illness Chief Complaint: [...] bladder changes. Patient denies any saddle anesthesia. [facility] Medical History Advanced directives, counseling/discussion Anemia Anginal equivalent Aortic stenosis Asthma Atherosclerosis of coronary artery of [place] heart without angina pectoris BPH (benign prostatic [...] #90 tabs 11/23/23 [Rx Last Taken 12/01/23] meirabkq-rcy-mlagl acid 0.4 mg-lycopene 300 mcg-lutein 250 mcg [...] QTc interval was normal at 452 ms. [place] was borderline left axis deviation at -25. There are no acute ST or T wave changes noted. 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 Call [facility] ([phone]) or report to the closest Emergency Room. Call 911 if necessary. 12/02/23 1757 <Electronically signed by Antonio James DO> Cosigner Signature (if applicable): CC: Dr. Umm Mario MD ~ Signed [facility] Work Phone: 1(522) 579-666002-19-2024 Miscellaneous Notes* Addendum Note - Shawn Shea MD - 11/07/2023 3:03 PM ESTAddended by: SHAWN SHEA on: 11/07/2023 03:03 PM Modules accepted: [facility] Instructions* Patient Instructions* Shawn Shea MD - 11/07/2023 2:56 PM EST You will be dilated on your next visit. This will likely make your vision blurry for several hours, and you should strongly consider bringing a cab driver. [facility]02-19-2024 History of Present illness Narrative* Shawn Shea MD - 11/07/2023 2:52 PM EST New from [place] Tmax: <22; Pachy: -, - Lasers and [...] components. Shawn Shea MD [facility]12-15-2023 Miscellaneous Notes* Telephone Encounter - Xenia Guillen [...] second floor appt desk found appt in [facility] for him on 09-06. * Telephone Encounter - Xenia Guillen - 09/02/2023 10:43 AM EST Images from the original note were not included. Pt photo * Telephone Encounter - Xenia Guillen - 09/02/2023 9:12 AM EST Left eye, appears to have blood in in coming from the pupil going down. Has not affected vision. Nopain. Had slight headache last night. No other symptoms 11-07-23 Assessment & Plan Shawn Shea MD filed at 07/04/2023 2:28 PM Status: Signed New from [facility] Tmax: [...] both eyes - stable [facility]10-16-2023 History of Present illness Narrative* Shawn Shea MD - 07/04/2023 3:45 PM EDT New from [place] Tmax: <22; [...] components. Shawn Shea MD [facility]09-13-2023 History of Present illness Narrative* Shawn Shea MD - 06/01/2023 1:35 PM EDT New from [place] Tmax: <22; [...] components. Shawn Shea MD [facility] this [facility]08-04-2023 Discharge summary Author Heber Miranda [facility] April 22, 2023 10:17pm Note Date/Time April 22, 2023 8:4 7pm [facility] Medical Records Department [address] [place] [address] Emergency Department Summary 04/22/23 MR#: [id number] Acct: [id number] Name: JESSEE RUST Rep #:[id number] : 1935 88 From: Marisol LUEVANO PCP: Dr. Umm Mario MD Status:R EG ER Location: ED [...] abdominal pain, nausea, and vomiting. [facility] <BASSEM Soria - Last Filed: 04/22/23 22:01> [facility] Medical History Advanced directives, counseling/discussion Anemia Anginal equivalent Aortic stenosis Asthma Atherosclerosis of coronary artery of [place] heart without angina pectoris BPH (benign prostatic [...] mg tablet,delayed release 81 mg PO DAILY@0800 [facility] 12/06/16 [History Last Taken 06/06/20] travoprost 0.004 [...] <BASSEM Soria - Last Filed: 04/22/23 22:01> MDM MDM Narrative Medical decision making narrative: [...] 21:22 EDT Reading Location ID and State: [facility] / [place] Tel [phone], Service support , <Dr. Heber Miranda MD - Last Filed: 04/22/23 22:17> [facility] MDM Narrative Medical decision making narrative: Patient [...] Mild basilar atelectasis. Electronically Signed: Mehran Apple at 21:22 EDT Reading Location ID and State: [facility] / [place] Tel [phone], Service support , Treatment and Re-Evaluation :: [...] BID Qty: 60 11RF Primary Care Provider: Umm Mario Referrals: Umm Mario MD [Primary Care Provider] - 1-2 Days if not improving Disposition Disposition: Home, Self Care What to do if you have Problems For any increased pain, shortness of breath, bleeding, nausea or vomiting, chestpain, or any unexpected problems, contact your Primary Care Provider. Call [facility] ([phone]) or report to the closest Emergency Room. Call 911 if necessary. 04/22/232200 <Electronically signed by Marisol LUEVANO> Cosigner Signature (if applicable): 04/22/232216 <Electronically signed by Heber Miranda MD> CC: Dr. Umm Mario MD ~ Signed [facility] Work Phone: 1(562) 998-648407-03-2023 Discharge summary Author [place] [facility] March 21, 2023 10:46pm Note Date/Time March 21, 2023 10:44 pm [facility] Medical Records Department [address] [place] [id number] Emergency Department Summary 03/21/23 MR#: [id number] Acct: [id number] Name: JESSEE RUST Rep #:[id number] : 1935 88 From: [place] Taylor PCP: Dr. Umm Mario MD Status:R EG ER Location: ED HPI History of Present Illness Chief Complaint: [facility]ed [facility] Medical History Advanced directives, counseling/discussion Anemia Anginal equivalent Aortic stenosis Asthma Atherosclerosis of coronary artery of [place] heart without angina pectoris BPH (benign prostatic [...] BID Qty: 60 11RF Primary Care Provider: Umm Mario Referrals: Umm Mario MD [Primary Care Provider] - Activity [...] problems, contact your Primary Care Provider. Call [facility] ([phone]) or report to the closest Emergency Room. Call 911 if necessary. 03/21/23 5641 <Electronically signed by Washington Pepper DO> Cosigner Signature (if applicable): CC: Dr. Umm Mario MD ~ Signed [facility] Work Phone: 1(101) 536-272707-03-2023 Hospital Discharge instructions Additional Instructions Thank you [...] care physician for further outpatient evaluation and management.[facility] Work Phone: 1(828) 215-937906-24-[address] Ferrera [facility] March 12, 2023 2:45pm Note Date/Time March 12, 2023 1:29 pm [facility] Medical Records Department [address] [place] [address] Emergency Department Summary 03/12/23 MR#: [id number] Acct: [id number] Name: JESSEE RUST Rep #:[id number] : 1935 88 From: Javier Ferrera MD PCP: Dr. Umm Mario MD Status:R ER Location: ED HPI History of Present [...] palpitations. At this time he is asymptomatic. [facility] Medical History Advanced directives, counseling/discussion Anemia Anginal equivalent Aortic stenosis Asthma Atherosclerosis of coronary artery of [place] heart without angina pectoris BPH (benign prostatic [...] I advised close outpatient follow-up with his vp informatics after the weekend he is comfortable with [...] % (Auto) 51.9 Lymph % (Auto) 32.4 Grundy % (Auto) 11.6 H Eos % (Auto) [...] BID Qty: 60 11RF Primary Care Provider: Umm Mario Referrals: John Cool MD [Med Staff - Active Staff] - 5-7 Days Umm Mario MD [Primary Care Provider] - Disposition Disposition: Home, Self Care What to do if you have Problems For any increased pain, shortness of breath, bleeding, nausea or vomiting, chestpain, or any unexpected problems, contact your Primary Care Provider. Call [facility] ([phone]) or report to the closest Emergency Room. Call 911 if necessary. 03/12/23 2249 <Electronically signed by Javier Ferrera MD> Cosigner Signature (if applicable): CC: Dr. John Cool MD; Dr. Umm Mario MD ~ Signed [facility] Work Phone: 1(225) 512-239604-05-2016 History of Past illness Narrative* Problem Noted [...] Overview: Colonoscopy 06/11/10 Repeat in [address]. Dr. Forrest Grant MD. Hx rt colon resection for large villous adenoma w/high grade dysplagia. Other psoriasis 11/21/2006 11/02/2016 documented as of this encounter (statuses as of 07/12/2022) [facility]04-05-2016 History of Past illness Narrative* Problem Noted [...] Overview: Colonoscopy 06/11/10 Repeat in [address] Dr. Forrest Grant MD. Hx rt colon resection for large villous adenoma w/high grade dysplagia. Other psoriasis 11/21/2006 11/02/2016 documented as of this encounter (statuses as of 06/01/2023) [facility]04-05-2016 History of Past illness Narrative* Problem Noted [...] Overview: Colonoscopy 06/11/[address] Repeat [place] [address] Dr. Forrest Grant MD. Hx rt colon resection for large villous adenoma w/high grade dysplagia. Other psoriasis 11/21/2006 11/02/2016 documented as of this encounter (statuses as of 07/05/2023) [facility]04-05-2016 History of Past illness Narrative* Problem Noted [...] Overview: Colonoscopy 06/11/[address] [place] [address] Forrest Grant MD. Hx rt colon resection for large villous adenoma w/high grade dysplagia. Other psoriasis 11/21/2006 11/02/2016 documented as of this encounter (statuses as of 09/03/2023) [facility]04-05-2016 History of Past illness Narrative* Problem Noted [...] Overview: Colonoscopy 06/11/[address] Forrest Grant MD. Hx rt colon resection for large villous adenoma w/high grade dysplagia. Other psoriasis 11/21/2006 11/02/2016 documented as of this encounter (statuses as of 11/07/2023) [facility] Author Salome Childers [facility] December 08, 2023 11:03am Note Date/Time December 08, 2023 11: 03am [facility] Medical Records Department [address] [place] [address] Counseling Note - Pharmacy 12/08/23 1102 MR#: [id number] Acct: [id number] Name: JESSEE RUST Rep #:[id number] : 1935 88 From: Salome Childers PCP: Dr. Umm Mario MD Status:A DM IN Y Location: [place] [address] Pharmacy MA Med Reconciliation Pharmacy Service has performed discharge medication reconciliation for this patient upon transfer to [facility] The patient's discharge medication list was reviewed [...] 325 mg PO QODAY #90 tabs 11/23/23 xvpqolmk-nyr-pupus acid 0.4 mg-lycopene 300 mcg-lutein 250 mcg tablet (Centrum Silver) 1 tab PO DAILY 12/02/23 netarsudil 0.02 %-latanoprost 0.005 % eye drops (Rocklatan) 1 drp ophthalmic (eye) QHS 12/02/23 cefdinir 300 mg capsule 300 mg PO BID #10 caps 12/08/23 12/08/23 1103 <Electronically signed by Salome Childers > Date _ Salome Childers Howie Signature (if applicable): Date CC: ~ Signed [facility] Work Phone: Discharge summary Author Klaudia Gonzales [facility] December 08, 2023 10:47am Note Date/Time December 08, 2023 10: 47am [facility] Medical Records Department [address] [place] [address] Transfer to [facility] MR#: [id number] Acct: [id number] Name: JESSEE RUST Rep #:[id number] : 1935 88 From: Klaudia Gonzales MD PCP: Dr. Umm Mario MD Status:A DM IN Certification of patient admission REQUIRED AT TIME OF ADMISSION. I CERTIFY THAT POST-HOSPITAL ECF SERVICES ARE REQUIRED TO BE GIVEN ON AN IN-PATIENT BASIS BECAUSE OF THE ABOVE NAMED PATIENT'S NEED FOR SNF CARE ON A CONTINUING BASIS FOR THE [...] 09:49) Shortness of breath Penicillins Allergy (Verified 02/01/24 09:49) Rash Procedures: 2-D Echocardiogram and Cardiac [...] Attending Provider: Klaudia Gonzales Primary Care Provider: Umm Mario Consulting Providers: Vanessa Simmons; Miguelito Laguna; [...] - Active Staff] - Within 2 Weeks Umm Mario MD [Primary Care Provider] - Within 1 Week Darien Lee MD [Med Staff - Active Staff] - Within 1 Week Disposition Disposition (needs filled in before D/C Order can be placed): [facility] 12/08/23 1047 <Electronically signed by Klaudia Gonzales MD> Cosigner Signature (if applicable): CC: Dr. Vanessa Simmons MD; Dr. Umm Mario MD; Dr. Darien Lee MD;Dr. Miguelito Laguna MD ~ [facility] Work Phone: Discharge summary Author Hai Rand [facility] Note Date/Time March 17, 2025 7:01 am [facility] Medical Records Department [address] [place] [address] Emergency Department Summary 03/17/25 MR#: [id number] Acct: [id number] Name: JESSEE RUST Rep #:[id number] : 1935 89 From: Hai Rand DO PCP: Dr. Umm Mario MD Status:R EG ER Location: ED [...] secondary to this he presents for evaluation. [facility] Medical History Bradycardia Immunity status [...] Essential hypertension 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 Cholelithiasis without obstruction Hyperlipidemia Home Medications ?Medication ?Instructions ?Recorded ?Last Taken ?Type aspirin 81 mg tablet,delayed 81 mg PO DAILY@0800 [facility] 12/06/16 12/19/23 History release Held on [...] ea 04/30/23 Unkn own Rx Nebulizer System) vvbzxopj-dni-oaaew acid 0.4 1 tab PO DAILY supplement [...] Hyperlipidemia, Chronic atrial fibrillation, Current use of group home anticoagulation Instructions: ED Epistaxis (Adult) Prescriptions: No [...] BID Qty: 60 11RF Primary Care Provider: Umm Mario Referrals: Umm Mario MD [Primary Care Provider] - Arian Rainey MD [Med Staff - Active Staff] - (Anterior epistaxis on Eliquis) Activity Restrictions/Additional Instructions: Please hold your Eliquis for the next 3 days. Follow-up with Dr. Rainey/ENT forrepeat evaluation and do not remove your packing until you are evaluated by him. Return to the ER should you have any further concerns Print Language: Monegasque Disposition Disposition: Home, Self Care What to do if you have Problems For any increased pain, shortness of breath, bleeding, nausea or vomiting, chestpain, or any unexpected problems, contact your Primary Care Provider. Call [facility] ([phone]) or report to the closest Emergency Room. Call 911 if necessary. 03/17/25 0701 <Electronically signed by Hai Rand DO> Cosigner Signature (if applicable): CC: Dr. Umm Mario MD ~ Signed [facility] Work Phone: Evaluation note* Diagnosis Onset Date Resolution Status Atherosclerosis of coronary artery of [place] heart without angina pectoris chronic Bradycardia chronic Presence of stent in coronary artery chronic Obesity acute Restrictive airway disease a cute Asthma chronic Vitamin D deficiency acute Asthma chronic BPH (benign prostatic hyperplasia) chronic Dizziness chronic Essential hypertension chron ic Iron deficiency anemia chron ic Asthma chronic New onset atrial fibrillation acute Atherosclerosis of coronary artery of [place] heart without angina pectoris chronic Hyperlipidemia chronic [facility] Work Phone: Evaluation note* Diagnosis Onset Date Resolution Status Obesity acute Restrictive airway disease a cute Asthma chronic BPH (benign prostatic hyperplasia) chronic Essential hypertension chron ic Hyperlipidemia chronic Memory impairment chronic Physical debility chronic [facility] Work Phone: Evaluation note* Diagnosis Onset Date Resolution Status BPH (benign prostatic hyperplasia) chronic Essential hypertension chron ic Hyperlipidemia chronic Memory impairment chronic Physical debility chronic Hypertension chronic [facility] Work Phone: Evaluation note* Diagnosis Onset Date Resolution Status Essential hypertension chron ic Hyperlipidemia chronic Memory impairment chronic Aortic stenosis chronic Atherosclerosis of coronary artery of [place] heart without angina pectoris chronic Essential hypertension chron ic Hyperlipidemia chronic New onset atrial fibrillation chronic [facility] Work Phone: Evaluation note* Diagnosis Onset Date Resolution Status Aortic stenosis chronic Atherosclerosis of coronary artery of [place] heart without angina pectoris chronic Essential hypertension chron ic Hyperlipidemia chronic New onset atrial fibrillation chronic Asthma chronic Advanced directives, counseling/discussion acute Essential hypertension chron ic Glaucoma chronic Hyperlipidemia chronic Memory impairment chronic [facility] Work Phone: Evaluation note* Diagnosis Onset Date Resolution Status Advanced directives, counseling/discussion acute Essential hypertension chron ic Glaucoma chronic Hyperlipidemia chronic Memory impairment chronic Extensor tenosynovitis of right wrist acute [facility] Work Phone: Evaluation note* Diagnosis Onset Date Resolution Status Advanced directives, counseling/discussion acute Essential hypertension chron ic Glaucoma chronic Hyperlipidemia chronic Memory impairment chronic Extensor tenosynovitis of right wrist acute Essential hypertension chron ic Glaucoma chronic Psoriasis chronic Thrombocytopenia chronic Aortic stenosis chronic Atherosclerosis of coronary artery of [place] heart without angina pectoris chronic Essential hypertension chron ic Hyperlipidemia chronic New onset atrial fibrillation chronic [facility] Work Phone: Evaluation note* Diagnosis Onset Date Resolution Status Extensor tenosynovitis of right wrist acute Essential hypertension chron ic Glaucoma chronic Psoriasis chronic Thrombocytopenia chronic Aortic stenosis chronic Atherosclerosis of coronary artery of [place] heart without angina pectoris chronic Essential hypertension chron ic Hyperlipidemia chronic New onset atrial fibrillation chronic COVID-19 acute Asthma chronic Essential hypertension chron ic Hyperlipidemia [facility] Work Phone: Evaluation note* Diagnosis Primary open angle glaucoma (POAG) of both eyes, severe stage- Primary Epiretinal membrane (ERM) of left eye Band keratopathy, bilateral [facility] Diagnosis Primary open angle glaucoma (POAG) of both eyes, severe stage [facility] Diagnosis Primary open angle glaucoma (POAG) of both eyes, severe stage- Primary [facility]* Diagnosis Onset Date Resolution Status Asthma chronic Essential hypertension chron ic Hyperlipidemia chronic Memory impairment chronic COVID-19 acute Aortic stenosis chronic Atherosclerosis of coronary artery of [place] heart without angina pectoris chronic Hyperlipidemia chronic Sinus bradycardia chronic Non-STEMI (non-ST elevated myocardial infarction) acute Sepsis acute Urinary tract infection acut e [facility] Work Phone: Evaluation note* Diagnosis Onset Date Resolution Status Asthma chronic Essential hypertension chron ic Hyperlipidemia chronic Memory impairment chronic COVID-19 acute Paroxysmal atrial fibrillation acute Aortic stenosis chronic Atherosclerosis of coronary artery of [place] heart without angina pectoris chronic Hyperlipidemia chronic Sinus bradycardia chronic Acute kidney injury acute Cardiomyopathy acute Mitral regurgitation acute Non-STEMI (non-ST elevated myocardial infarction) acute Paroxysmal atrial fibrillation acute Sepsis acute Ureteral calculi acute Urinary tract infection acut e Aortic stenosis chronic Hyperlipidemia chronic Primary biliary cirrhosis ch ronic Thrombocytopenia chronic [facility] Work Phone: Evaluation note* Diagnosis Onset Date Resolution Status COVID-19 acute Aortic stenosis chronic Atherosclerosis of coronary artery of [place] heart without angina pectoris chronic Paroxysmal atrial [...] stenosis chronic Atherosclerosis of coronary artery of [place] heart without angina pectoris chronic Paroxysmal atrial fibrillation chronic Sinus bradycardia chronic [facility] Work Phone: Evaluation note* Diagnosis Primary open angle glaucoma (POAG) of both eyes, severe stage [facility] Diagnosis Primary open angle glaucoma (POAG) of both eyes, severe stage [facility]* Diagnosis Redness of both eyes- Primary Primary open angle glaucoma (POAG) of both eyes, 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 Epiretinal membrane (ERM) of left eye Band keratopathy, bilateral [facility]* Diagnosis Paroxysmal atrial fibrillation (HCC)- Primary Atrial fibrillation At risk for stroke Other specified personal history presenting hazards to health At risk for bleeding associated with anticoagulants History of lower GI bleeding Personal history of other diseases of digestive system Epistaxis Bradycardia Other specified cardiac dysrhythmias Sinus node dysfunction (HCC) Sinoatrial node dysfunction Sinus bradycardia Other specified cardiac dysrhythmias Atherosclerosis of [place] coronary artery of [place] heart without angina pectoris Presence of stent in coronary artery Postsurgical percutaneous transluminal coronary angioplasty status Nonrheumatic aortic valve stenosis Aortic valve disorders Primary biliary cirrhosis (HCC) Biliary cirrhosis Moderate mitral valve regurgitation Moderate tricuspid valve regurgitation [facility] Primary open angle glaucoma (POAG) of both eyes, severe stage [facility]* Diagnosis Regular astigmatism of both eyes- Primary Regular astigmatism Presbyopia Primary open angle glaucoma (POAG) of both eyes, severe stage [facility] Additional Instructions Right lower gingival bleeding controlled with TXA. Platelets 115. Discussed with cardiology may hold your baby aspirin and Eliquis. soft foods. Soft toothbrush avoid brushing the right lower teeth area at this time. Follow-up with your doctors. Return if any worsening symptoms.[facility] Work Phone: Hospital Discharge instructions Additional Instructions Follow-up with your PCP in 1 week if no improvement of your pain, ice the area, elevate to help with swelling, return for any other concerns. Take Tylenol as needed for your pain. [facility] Work Phone: Hospital Discharge instructionsAdditional Instructions Please hold your Eliquis for the next 3 days. Follow-up with Dr. Rainey/ENT for repeat evaluation and do not remove your packing until you are evaluated by him. [facility] the [facility]: Hospital Discharge instructionsAdditional Instructions Hold your Eliquis. No aspirin at this time either. Call and follow-up with Dr. Arian Rainey for further evaluation. Packing can come out in 3 days. If rebleeds and unable to stop with 30 minutes of pinching your nose direct pressure return.[facility] Work Phone: Hospital Discharge instructionsAdditional Instructions Follow-up with your eye doctor. Call tomorrow to make an appointment to be seen earlier. Return back to the ED symptoms change or worsen. Follow-up with primary care physician. 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 Follow-up with vascular surgery for this.[facility] Work Phone: Hospital Discharge instructionsAmbulatory Orders* Vascular Location: None Selected [facility] Work Phone: Reason for referral (narrative)No reason for referral information availableWBerger [facility] Work Phone: Chief Complaint and Reason for Visit Chief Complaint AORTIC STENOSIS/SOB AORTIC STENOSIS/SOB 6 MO F/U (NN PT) Hospital FU 2 M FU BP CK, BROUGHT CUFF 6 wk FU LEFT KNEE xray NN PT ? new onset atrial fib per MMM/L.[place] E ORDERS Reason for Visit Atherosclerosis of c oronary artery of [place] heart without angina pectoris Bradycardia Presence of stent in coronary artery Obesity Restrictive airway disease Asthma Vitamin D deficiency Asthma BPH (benign prostatic hyperplasia) Dizziness Essential hypertension Iron deficiency anemia Asthma New onset atrial fibrillation Atherosclerosis of coronary artery of [place] heart without angina pectoris Hyperlipidemia Chief Complaint 6 MO F/U (NN PT) Hospital FU 2 M FU BP CK, BROUGHT CUFF 6 wk FU LEFT KNEE xray NN PT ? new onset atrial fib per MMM/L.[place] E ORDERS NEW ONSET ATRIAL FIBRILLATION Reason for Visit Atherosclerosis of c oronary artery of [place] heart without angina pectoris Bradycardia Presence of stent in coronary artery Obesity Restrictive airway disease Asthma Vitamin D deficiency Asthma BPH (benign prostatic hyperplasia) Dizziness Essential hypertension Iron deficiency anemia Asthma New onset atrial fibrillation Atherosclerosis of coronary artery of [place] heart without angina pectoris Hyperlipidemia Chief Complaint [...] Complaint 5 M FU E ORDER [facility] ER FU EORDERS BP CHECK Reason for Visit BPH (benign prostati c hyperplasia) Essential hypertension Hyperlipidemia Memory impairment Physical debility Hypertension Chief Complaint 5 M FU E ORDER [facility] ER FU EORDERS BP CHECK 9 M FU (NN PT SWITCHING TO 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 FIB NOSEBLEED [facility] FU nosebleed 6 M FU COUGH Reason for Visit Advanced directives, counseling/discussion Essential hypertension Glaucoma Hyperlipidemia Memory impairment Extensor tenosynovitis of right wrist Essential hypertension Glaucoma Psoriasis Thrombocytopenia Aortic stenosis Atherosclerosis of coronary artery of [place] heart without angina pectoris Essential hypertension Hyperlipidemia New onset atrial fibrillation Chief Complaint RT WRIST RIGHT WRIST A. FIB NOSEBLEED [facility] FU nosebleed 6 M FU COUGH [facility] FU - COVID DAY 7 CHEST XRAY Reason for Visit Extensor tenosynovit is of right wrist Essential hypertension Glaucoma Psoriasis Thrombocytopenia Aortic stenosis Atherosclerosis of coronary artery of [place] heart without angina pectoris Essential hypertension Hyperlipidemia New onset atrial fibrillation COVID-19 Asthma Essential hypertension Hyperlipidemia Chief Complaint 5 M FU Bradycardia, unspecified FU PER MH SEE CLINICAL NOTE NSTEMI, UTI, SEPSIS Reason for Visit Asthma Essential hypertension Hyperlipidemia Memory impairment COVID-19 Aortic stenosis Atherosclerosis of coronary artery of [place] heart without angina pectoris Hyperlipidemia Sinus bradycardia [...] Aortic stenosis Atherosclerosis of coronary artery of [place] heart without angina pectoris Hyperlipidemia Sinus bradycardia [...] N STEMI WITH UTI & PNEUMONIA S/P [facility] 12/11 Reason for Visit COVID-19 Aortic stenosis Atherosclerosis of coronary artery of [place] heart without angina pectoris Paroxysmal atrial fibrillation Sinus bradycardia Aortic stenosis Paroxysmal atrial fibrillation Acute kidney injury Urinary tract infection Allergic rhinitis Atrial fibrillation BPH (benign prostatic hyperplasia) Debility Encephalopathy GERD (gastroesophageal reflux disease) Pneumonia Primary biliary cirrhosis Right ureteral stone Asthma Glaucoma Urinary tract infection Aortic stenosis Atherosclerosis of coronary artery of [place] heart without angina pectoris Paroxysmal atrial fibrillation [...] 1 :53pm Atherosclerosis of coronary artery of [place] heart without angina pectoris October 23, 2024 [...] 1 :53pm Atherosclerosis of coronary artery of [place] heart without angina pectoris October 23, 2024 [...] 1 :53pm Atherosclerosis of coronary artery of [place] heart without angina pectoris October 23, 2024 [...] 1 :53pm Atherosclerosis of coronary artery of [place] heart without angina pectoris October 23, 2024 [...] 2:15p m Atherosclerosis of coronary artery of [place] heart without angina pectoris February 19, 2025 [...] 2:15p m Atherosclerosis of coronary artery of [place] heart without angina pectoris February 19, 2025 [...] 2:15p m Atherosclerosis of coronary artery of [place] heart without angina pectoris February 19, 2025 [...] 2:15p m Atherosclerosis of coronary artery of [place] heart without angina pectoris February 19, 2025 2:15pm CHF (congestive heart failure) February 19, 2025 2:15pm Hyperlipidemia February 19, 2025 2:15p m Paroxysmal atrial fibrillation February 19, 2025 2:15pm Sinus bradycardia February 19, 2025 2:15p m Bradycardia March 21, 2025 10:51 am Aortic stenosis March 21, 2025 10:51 am Atherosclerosis of coronary artery of [place] heart without angina pectoris March 21, 2025 [...] MORE VIEW) April 02, 2025 3 :47pm WC FU April 19, 2025 1:4 4pm Reason for Visit Admit Date Asthma February 14, 2025 2:05p m Atrial fibrillation February 14, 2025 2:05p m Debility February 14, 2025 2:05p m Essential hypertension February 14, 2025 2: 05pm Hyperlipidemia February 14, 2025 2:05p m Anemia February 19, 2025 2:15p m Aortic stenosis February 19, 2025 2:15p m Atherosclerosis of coronary artery of [place] heart without angina pectoris February 19, 2025 2:15pm CHF (congestive heart failure) February 19, 2025 2:15pm Hyperlipidemia February 19, 2025 2:15p m Paroxysmal atrial fibrillation February 19, 2025 2:15pm Sinus bradycardia February 19, 2025 2:15p m Bradycardia March 21, 2025 10:51 am Aortic stenosis March 21, 2025 10:51 am Atherosclerosis of coronary artery of [place] heart without angina pectoris March 21, 2025 [...] MORE VIEW) April 02, 2025 3 :47pm WC FU April 19, 2025 1:4 4pm Shortness [...] 2:15p m Atherosclerosis of coronary artery of [place] heart without angina pectoris February 19, 2025 2:15pm CHF (congestive heart failure) February 19, 2025 2:15pm Hyperlipidemia February 19, 2025 2:15p m Paroxysmal atrial fibrillation February 19, 2025 2:15pm Sinus bradycardia February 19, 2025 2:15p m Bradycardia March 21, 2025 10:51 am Aortic stenosis March 21, 2025 10:51 am Atherosclerosis of coronary artery of [place] heart without angina pectoris March 21, 2025 [...] 2:15p m Atherosclerosis of coronary artery of [place] heart without angina pectoris February 19, 2025 2:15pm CHF (congestive heart failure) February 19, 2025 2:15pm Hyperlipidemia February 19, 2025 2:15p m Paroxysmal atrial fibrillation February 19, 2025 2:15pm Sinus bradycardia February 19, 2025 2:15p m Bradycardia March 21, 2025 10:51 am Aortic stenosis March 21, 2025 10:51 am Atherosclerosis of coronary artery of [place] heart without angina pectoris March 21, 2025 [...] CHF (congestive heart failure) May [id number] 10:18am Chief Complaint Admit Date 3 M FU February 14, 2025 2:05p m Back in [facility], see clinical notes Devyn Petit 2024 2:15pm AFIB March 05, 2025 10:4 8am Atrial fibrillation March 05, 2025 11:0 4am E-ORDER March 07, 2025 1:34 pm ANKLE March 10, 2025 4:05 pm nosebleed March 17, 2025 5:40 am NOSE BLEED March 17, 2025 1:52 pm See Note March 21, 2025 10:51 am ( TECH NEED MORE VIEW) April 02, 2025 3 :47pm [facility] SYSTEM FU April 19, 2025 1:4 4pm Shortness of breath. Pain left side. [facility] May 08, 2025 10:18am stroke May 20, 2025 12:41pm Chief Complaint Admit Date Back in [facility], see clinical notes Devyn Petit 2024 2:15pm AFIB March 05, 2025 10:4 [...] side. [facility] May 08, 2025 10:18am stroke May 20, 2025 12:41pm ARRYTHMIA June 04, 2025 1:15pm OP June 04, 2025 1:23pm Hospital F/u + referral? June 07, 2025 2:54pm 6 m fu June 17, 2025 2:33pm Reason for Visit Admit Date Anemia February 19, 2025 2:15p m Aortic stenosis February 19, 2025 2:15p m Atherosclerosis of coronary artery of [place] heart without angina pectoris February 19, 2025 2:15pm CHF (congestive heart failure) February 19, 2025 2:15pm Hyperlipidemia February 19, 2025 2:15p m Paroxysmal atrial fibrillation February 19, 2025 2:15pm Sinus bradycardia February 19, 2025 2:15p m Bradycardia March 21, 2025 10:51 am Aortic stenosis March 21, 2025 10:51 am Atherosclerosis of coronary artery of [place] heart without angina pectoris March 21, 2025 [...] CHF (congestive heart failure) May [id number] 10:18am Fatigue June 07, 2025 2:54pm Vertebrobasilar artery stenosis Septembe r 2024 2:54pm Atrial fibrillation June 07, 2025 2:54pm Asthma June 17, 2025 2:33pm Chief Complaint Admit Date AFIB March 05, 2025 10:4 8am Atrial [...] side. Chi lls May 08, 2025 10:18am stroke May 20, 2025 12:41pm ARRYTHMIA June 04, 2025 1:15pm OP June 04, 2025 1:23pm Hospital F/u + referral? June 07, 2025 2:54pm 6 m fu June 17, 2025 2:33pm Left Vertebral Artery Disease-ER FU 5 2:41pm Reason for Visit Admit Date Bradycardia March 21, 2025 10:51 am Aortic stenosis March 21, 2025 10:51 am Atherosclerosis of coronary artery of [place] heart without angina pectoris March 21, 2025 [...] CHF (congestive heart failure) May [id number] 10:18am Fatigue June 07, 2025 2:54pm Vertebrobasilar artery stenosis Septembe r 2024 2:54pm Atrial fibrillation June 07, 2025 2:54pm Asthma June 17, 2025 2:33pm Vertebral artery occlusion June 24, 2025 2:41pm Chief Complaint Admit Date See Note March 21, 2025 10:51 am ( TECH NEED MORE VIEW) April 02, 2025 3 :47pm [facility] FU April 19, 2025 1:4 4pm Shortness of breath. Pain left side. Chi lls May 08, 2025 10:18am stroke May 20, 2025 12:41pm ARRYTHMIA June 04, 2025 1:15pm OP June 04, 2025 1:23pm Hospital F/u + referral? June 07, 2025 2:54pm 6 m fu June 17, 2025 2:33pm Left Vertebral Artery Disease-ER Juno 2024 2:41pm PBC NEEDS REFILLS URSODOIL July 02, 2025 1:53pm 3 M FU July 05, 2025 2 :11pm Reason for Visit Admit Date Bradycardia March 21, 2025 10:51 am Aortic stenosis March 21, 2025 10:51 am Atherosclerosis of coronary artery of [place] heart without angina pectoris March 21, 2025 [...] CHF (congestive heart failure) May [id number] 10:18am Fatigue June 07, 2025 2:54pm Vertebrobasilar artery stenosis Septembe r 2024 2:54pm Atrial fibrillation June 07, 2025 2:54pm Asthma June 17, 2025 2:33pm Vertebral artery occlusion June 24, 2025 2:41pm Primary biliary cirrhosis July 02, 2025 1:53pm Aortic stenosis July 05, 2025 2 :11pm Atherosclerosis of coronary artery of [place] heart without angina pectoris July 05, 2025 2:11pm Paroxysmal atrial fibrillation June 192024 2:11pm Family History No Family History Records Found Relationship Condition Age at Onset Recorded Date/T zach Not Specified Disorder of liver Unknown Alcoholism Unknown father Hypertension Unknown grandmother Hypertension Unknown Relationship Condition Age at Onset Recorded Date/T zach Not Specified Disorder of liver Unknown Alcoholism Unknown Primary biliary cholangitis Unknown father Hypertension Unknown grandmother Hypertension Unknown Advance Directives No Advanced Directives Records Found Advance Directive Response Recorded Date/ Time Living Will Yes July 23 2:06pm Power of Rehab Director Yes July 23, 2021 2:06pm Documents on File Type Date Recorded 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 Advance Directive(s) 01/15/2016 12:48 PM Advance Directive Response Recorded Date/ Time Living Will Yes July 23 1:06pm Power of Rehab Director Yes July 23, 2021 1:06pm Advance Directive Response Recorded Date/ Time Name of Medical Power of Rehab Director SHAWNEE YOCASTA August 24, 2022 6:11am Living Will Yes August 24 6:11am Power of Rehab Director Yes August 24, 2022 6:11am Advance Directive Response Recorded Date/ Time Name of Medical Power of Rehab Director SHAWNEE RUST January 22, 2023 10:29am Living Will Yes January 22, 2023 10 :29am Power of Rehab Director Yes January 22, 2023 10:29am Advance Directive Response Recorded Date/ Time Name of Medical Power of Rehab Director SHAWNEE RUST January 22, 2023 10:29am Name of Medical Power of Rehab Director SHAWNEE RUST- ; AAKASH RUST- SON March 12, 2023 12:24pm Living Will Yes March 12, 2023 12:24pm Power of Rehab Director Yes March 12 12:24pm Advance Directive Response Recorded Date/ Time Name of Medical Power of Rehab Director SHAWNEE LEIST January 22, 2023 10:29am Name of Medical Power of Rehab Director SHAWNEE EDGART- ; AAKASH RUST- SON March 12, 2023 12:24pm Name of Medical Power of Rehab Director shawnee leist March 21, 2023 7:58pm Living Will Yes March 21, 2023 7 :58pm Power of Rehab Director Yes March 21, 2023 7:58pm Advance Directive Response Recorded Date/ Time Name of Medical Power of Rehab Director SHAWNEE LEIST January 22, 2023 10:29am Name of Medical Power of Rehab Director SHAWNEE EDGART- ; AAKASH RUST- SON March 12, 2023 12:24pm Name of Medical Power of Rehab Director present March 25, 2023 11:31am Name of Medical Power of Rehab Director --SHAWNEE April 22, 2023 8:23pm Living Will Yes April 22, 2023 8:23pm Power of Rehab Director Yes April 22 8:23pm Name of Medical Power of Rehab Director shawnee leist March 21, 2023 7:58pm Advance Directive Response Recorded Date/ Time Name of Medical Power of Rehab Director SHAWNEE EDGART December 02, 2023 1:37pm Living Will Yes December 02, 2023 1:37pm Power of Rehab Director Yes December 01 1:37pm Advance Directive Response Recorded Date/ Time Name of Medical Power of Rehab Director SHAWNEE EDGART December 02, 2023 5:24pm Living Will Yes December 02, 2023 5:24pm Power of Rehab Director Yes December 01 5:24pm Advance Directive Response Recorded Date/ Time Name of Medical Power of Rehab Director SHAWNEE EDGART December 02, 2023 5:24pm Name of Medical Power of Rehab Director Shawnee Rust, spouse December 09, 2023 12:01pm Name of Medical Power of Rehab Director ON FILE December 20, 2023 10:35am Living Will Yes December 20, 2023 10:35am Power of Rehab Director Yes December 19 10:35am Documents on File Type Date Recorded 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 Yes December 20, 2023 10:35am Advance Directive Response Recorded Date/ Time Living Will Yes December 20, 2023 10:35am Do you have a Healthcare Power of Rehab Director? Yes December 20, 2023 10:35am Do you have a Healthcare Power of Rehab Director? Yes March 10, 2025 4:22pm Name of Medical Power of Rehab Director shawnee March 10, 2025 4:22pm Advance Directive Response Recorded Date/ Time Living Will Yes December 20, 2023 10:35am Do you have a Healthcare Power of Rehab Director? Yes December 20, 2023 10:35am Do you have a Healthcare Power of Rehab Director? Yes March 17, 2025 5:44am Do you have a Healthcare Power of Rehab Director? Yes March 10, 2025 4:22pm Name of Medical Power of Rehab Director shawnee March 10, 2025 4:22pm Advance Directive Response Recorded Date/ Time Living Will Yes December 20, 2023 10:35am Do you have a Healthcare Power of Rehab Director? Yes December 20, 2023 10:35am Do you have a Healthcare Power of Rehab Director? Yes March 17, 2025 5:44am Do you have a Healthcare Power of Rehab Director? Yes March 17, 2025 1:59pm Do you have a Healthcare Power of Rehab Director? Yes March 10, 2025 4:22pm Name of Medical Power of Rehab Director shawnee March 10, 2025 4:22pm Advance Directive Response Recorded Date/ Time Do you have a Healthcare Power of Rehab Director? Yes March 17, 2025 5:44am Do you have a Healthcare Power of Rehab Director? Yes March 17, 2025 1:59pm Do you have a Healthcare Power of Rehab Director? Yes March 10, 2025 4:22pm Name of Medical Power of Rehab Director shawnee March 10, 2025 4:22pm Advance Directive Response Recorded Date/ Time Do you have a Healthcare Power of Rehab Director? Yes March 17, 2025 5:44am Do you have a Healthcare Power of Rehab Director? Yes March 17, 2025 1:59pm Do you have a Healthcare Power of Rehab Director? Yes March 10, 2025 4:22pm Name of Medical Power of Rehab Director shawnee March 10, 2025 4:22pm Do you have a Healthcare Power of Rehab Director? No May 20, 2025 12:41pm Advance Directive Response Recorded Date/ Time Do you have a Healthcare Power of Rehab Director? No May 20, 2025 12:41pm Reason for Referral Specialty Diagnoses / Procedures Referred By Kit buckner Referred To [facility] Ornamental Ironworking Supervisor Diagnoses Primary open angle glaucoma (POAG) of both eyes, severe stage Procedures CONSULT TO [facility] Shawn Shea MD [address] [place] [address] [facility] [address] [place] [address] Referral ID Status Reason Start Date Expiration Date Visits Requested Visits Authorized [id number] Ref Not Required PCP Requested Referral 03/12/2024 [...] or prosecute any alcohol or drug abuse patient.[facility] HealthcareIn the event this information is protected by the Federal Confidentiality of Alcohol and Drug Abuse Patient Records regulations: The Federal rules restrict any use of the information to criminally investigate or prosecute any alcohol or drug abuse patient.[facility] HealthcareIn the event this information is protected by the Federal Confidentiality of Alcohol and Drug Abuse Patient Records regulations: The Federal rules restrict any use of the information to criminally investigate or prosecute any alcohol or drug abuse patient.[facility] HealthcareIn the event this information is protected by the Federal Confidentiality of Alcohol and Drug Abuse Patient Records regulations: The Federal rules restrict any use of the information to criminally investigate or prosecute any alcohol or drug abuse patient.[facility] HealthcareIn the event this information is protected by the Federal Confidentiality of Alcohol and Drug Abuse Patient Records regulations: The Federal rules restrict any use of the information to criminally investigate or prosecute any alcohol or drug abuse patient.[facility] HealthcareIn the event this information is protected by the Federal Confidentiality of Alcohol and Drug Abuse Patient Records regulations: The Federal rules restrict any use of the information to criminally investigate or prosecute any alcohol or drug abuse patient.[facility] HealthcareIn the event this information is protected by the Federal Confidentiality of Alcohol and Drug Abuse Patient Records regulations: The Federal rules restrict any use of the information to criminally investigate or prosecute any alcohol or drug abuse patient.[facility] HealthcareIn the event this information is protected by the Federal Confidentiality of Alcohol and Drug Abuse Patient Records regulations: The Federal rules restrict any use of the information to criminally investigate or prosecute any alcohol or drug abuse patient.[facility] HealthcareIn the event this information is protected by the Federal Confidentiality of Alcohol and Drug Abuse Patient Records regulations: The Federal rules restrict any use of the information to criminally investigate or prosecute any alcohol or drug abuse patient.[facility] HealthcareIn the event this information is protected by the Federal Confidentiality of Alcohol and Drug Abuse Patient Records regulations: The Federal rules restrict any use of the information to criminally investigate or prosecute any alcohol or drug abuse patient.[facility] HealthcareIn the event this information is protected by the Federal Confidentiality of Alcohol and Drug Abuse Patient Records regulations: The Federal rules restrict any use of the information to criminally investigate or prosecute any alcohol or drug abuse patient.[facility] HealthcareIn the event this information is protected by the Federal Confidentiality of Alcohol and Drug Abuse Patient Records regulations: The Federal rules restrict any use of the information to criminally investigate or prosecute any alcohol or drug abuse patient.[facility] HealthcareIn the event this information is protected by the Federal Confidentiality of Alcohol and Drug Abuse Patient Records regulations: The Federal rules restrict any use of the information to criminally investigate or prosecute any alcohol or drug abuse patient.[facility] HealthcareIn the event this information is protected by the Federal Confidentiality of Alcohol and Drug Abuse Patient Records regulations: The Federal rules restrict any use of the information to criminally investigate or prosecute any alcohol or drug abuse patient.[facility] HealthcareIn the event this information is protected by the Federal Confidentiality of Alcohol and Drug Abuse Patient Records regulations: The Federal rules restrict any use of the information to criminally investigate or prosecute any alcohol or drug abuse patient.[facility] HealthcareIn the event this information is protected by the Federal Confidentiality of Alcohol and Drug Abuse Patient Records regulations: The Federal rules restrict any use of the information to criminally investigate or prosecute any alcohol or drug abuse patient.[facility] HealthcareIn the event this information is protected by the Federal Confidentiality of Alcohol and Drug Abuse Patient Records regulations: The Federal rules restrict any use of the information to criminally investigate or prosecute any alcohol or drug abuse patient.[facility] HealthcareIn the event this information is protected by the Federal Confidentiality of Alcohol and Drug Abuse Patient Records regulations: The Federal rules restrict any use of the information to criminally investigate or prosecute any alcohol or drug abuse patient.[facility] HealthcareIn the event this information is protected by the Federal Confidentiality of Alcohol and Drug Abuse Patient Records regulations: The Federal rules restrict any use of the information to criminally investigate or prosecute any alcohol or drug abuse patient.[facility] HealthcareIn the event this information is protected by the Federal Confidentiality of Alcohol and Drug Abuse Patient Records regulations: The Federal rules restrict any use of the information to criminally investigate or prosecute any alcohol or drug abuse patient.[facility] Reason for Visit (unrecogniz ed section and content) Reason Comments Refill Request Reason Comments New Reason Comments Primary Open Angle Glaucoma Follow Up Reason Comments Medication Problem Reason Onset Date Comments Refill Request 03/10/2024 Reason Comments Primary Open Angle Glaucoma Follow Up Reason Comments Consult to [facility] Reason Comments Follow Up Reason Comments Primary Open Angle Glaucoma FOLLOW UP Pseudophakia Follow Up Reason Comments Conjunctivitis Evaluation Reason Comments follow up from 07/2025 Reason Comments Primary Open Angle Glaucoma Follow Up Se radha stage ou Pseudophakia Reason Comments CARD New Patient Consult Ref; [facility] for PA F Reason Comments Refraction Care Teams (unrecognized sec tion and content) Therapy Administrative Assistant Relationship Specialty Start Date End Date Manuel Logan MD [address] [facility] [place] [place] [address] PCP - General Family Medicine 12/08/18 Tristan Montana MD Specialty Tap And Die Maker Technician Cardiology 07/15/16 Team Status: Active Member Role Status Dates Dr. Manuel Logan MD Family Provider Active Dr. Umm Mario MD Primary Care Provider Active Team Status: Inactive Member Role Status Dates Dr. Umm Mario MD Primary Care P rovider, Attending Provider, Referring Provider Active Team Status: Inactive Member Role Status Dates Dr. Umm Mario MD Primary Care Provider, Refer ring Provider Active BASSEM Og Attending Provider Active Team Status: Inactive Member Role Status Dates Dr. Umm Mario MD Primary Care Provider, Refer ring Provider Active Dr. John Cool MD Attending Provider Active Team Status: Active Member Role Status Dates Dr. Umm Mario MD Primary Care Provider Active Dr. John Cool MD Attending Provider Active Team Status: Inactive Member Role Status Dates Dr. Umm Mario MD Primary Care Provider, Atten ding Provider Active Team Status: Inactive Member Role Status Dates Dr. Umm Mario MD Primary Care Provider Active Dr. Rolan Peña DO Attending Provider, Emergency Provide r Active Team Status: Inactive Member Role Status Dates Dr. Umm Mario MD Primary Care Provider Active Dr. John Cool MD Attending Provider, Referring Pro vider Active Team Status: Inactive Member Role Status Dates Dr. Umm Mario MD Primary Care Provider, Refer ring Provider Active Ailin Sharma CASTING MACHINE OPERATOR HELPER, CASTING MACHINE OPERATOR HELPER-C Attending Provider Active Team Status: Inactive Member Role Status Dates Dr. Umm Mario MD Primary Care Provider Active Dr. Julia Bishop MD Emergency Provider Active Team Status: Inactive Member Role Status Dates Dr. Umm Mario MD Primary Care Provider, Refer ring Provider Active Manuel Gardner MD Attending Provider Active Team Status: Inactive Member Role Status Dates Dr. Umm Mario MD Primary Care Provider Active Dr. Julia Bishop MD Attending Provider, Emergency Provider Active Team Status: Inactive Member Role Status Dates Dr. Umm Mario MD Primary Care Provider Active Dr. Javier Ferrera MD Emergency Provider Active Team Status: Inactive Member Role Status Dates Dr. Umm Mario MD Primary Care Provider Active Dr. Javier Ferrera MD Attending Provider, Emergency Provider Active Team Status: Inactive Member Role Status Dates Dr. Umm Mario MD Primary Care Provider Active Dr. Washington Pepper DO Emergency Provider Active Team Status: Inactive Member Role Status Dates Dr. Umm Mario MD Primary Care Provider, Refer ring Provider Active Ava Cardozo PA, PA Attending Provider Active Team Status: Inactive Member Role Status Dates Dr. Umm Mario MD Primary Care Provider Active Dr. Tremayne Marie DO Attending Provider, Emergency Pro vider Active Team Status: Inactive Member Role Status Dates Dr. Umm Mario MD Primary Care Provider Active Dr. Heber Miranda MD Emergency Provider Active Team Status: Inactive Member Role Status Dates Dr. Umm Mario MD Primary Care Provider Active Dr. Washington Pepper DO Attending Provider, Emergency P rovider Active Team Status: Inactive Member Role Status Dates Dr. Umm Mario MD Primary Care Provider Active Dr. Heber Miranda MD Attending Provider, Emergency Provider Active Therapy Administrative Assistant Relationship Specialty Start Date End Date Manuel Logan MD [address] [place], [place] [id number] PCP - General Family Medicine 12/08/18 Tristan Montana MD Specialty Tap And Die Maker Technician Cardiology 07/15/16 Therapy Administrative Assistant Relationship Specialty Start Date End Date Manuel Logan MD [address] [place], [place] [id number] PCP - General Family Medicine 12/08/18 Tristan Montana MD Specialty Tap And Die Maker Technician Cardiology 07/15/16 Therapy Administrative Assistant Relationship Specialty Start Date End Date Manuel Logan MD [address] [place], [place] [id number] PCP - General Family Medicine 12/08/18 Tristan Montana MD Specialty Tap And Die Maker Technician Cardiology 07/15/16 Therapy Administrative Assistant Relationship Specialty Start Date End Date Manuel Logan MD [address] [place] [address] PCP - General Family Medicine 12/08/18 Tristan Montana MD Specialty Tap And Die Maker Technician Cardiology 07/15/16 Team Status: Inactive Member Role Status Dates Dr. Umm Mario MD Primary Care Provider, Refer ring Provider Active Dr. Odalis Schmidt MD Attending Provider Active Team Status: Inactive Member Role Status Dates Dr. Umm Mario MD Primary Care Provider Active Dr. Odalis Schmidt MD Attending Provider, Referring Provider Active Team Status: Active Member Role Status Dates Dr. Umm Mario MD Primary Care Provider Active Dr. Antonio James , DO Emergency Provider Active Dr. Miguelito Laguna MD Admit Provider, Attending Provider Active Team Status: Active Member Role Status Dates Dr. Umm Mario MD Primary Care Provider Active Dr. Antonio James DO Emergency Provider Active Dr. Miguelito Laguna MD Admit Provi liv, Attending Provider, Other Provider Active Dr. Vanessa Simmons MD Other Provider Active Team Status: Active Member Role Status Dates Dr. Umm Mario MD Primary Care Provider Active Dr. Antonio James , DO Emergency Provider Active Dr. Miguelito Laguna MD Admit Provider, Other Pro vider Active Dr. Vanessa Simmons MD Attending Provider, Other Provid er Active Dr. Klaudia Gonzales MD Other Provider Active Team Status: Active Member Role Status Dates Dr. Umm Mario MD Primary Care Provider Active Dr. Antonio James , DO Emergency Provider Active Dr. Miguelito Laguna MD Admit Provider, Other Pro vider Active Dr. Vanessa Simmons MD Other Provider Active Dr. Klaudia Gonzales MD Attending Provider, Other Prov ider Active Team Status: Active Member Role Status Dates Dr. Umm Mario MD Primary Care Provider Active Dr. Vanessa Simmons MD Attending Provider Active Team Status: Active Member Role Status Dates Dr. Umm Mario MD Primary Care Provider Active Dr. Antonio James , DO Emergency Provider Active Dr. Miguelito Laguna MD Admit Provider, Other Pro vider Active Dr. Vanessa Simmons MD Attending Provider, Other Provid er Active Dr. Klaudia Gonzales MD Other Provider Active Dr. Darien Lee MD Other Provider Active Team Status: Active Member Role Status Dates Dr. Umm Mario MD Primary Care Provider Active Dr. Antonio James , DO Emergency Provider Active Dr. Miguelito Laguna MD Admit Provider, Other Pro vider Active Dr. Vanessa Simmons MD Other Provider Active Dr. Klaudia Gonzales MD Attending Provider, Other Prov ider Active Dr. Darien Lee MD Other Provider Active Team Status: Inactive Member Role Status Dates Dr. Umm Mario MD Primary Care Provider Active Dr. Antonio James , DO Emergency Provider Active Dr. Miguelito Laguna MD Admit Provider, Other Pro vider Active Dr. Vanessa Simmons MD Other Provider Active Dr. Klaudia Gonzales MD Attending Provider Active Dr. Darien Lee MD Other Provider Active Team Status: Inactive Member Role Status Dates Dr. Umm Mario MD Primary Care Provider, Refer ring Provider Active [employer] CASTING MACHINE OPERATOR HELPER, CASTING MACHINE OPERATOR HELPER-C Attending Provider Active Team Status: Active Member Role Status Dates Dr. Umm Mario MD Primary Care Provider Active Dr. Arsenio Mcgregor MD Admit Provider, Attending Provid er Active Team Status: Inactive Member Role Status Dates Dr. Umm Mario MD Primary Care Provider, Refer ring Provider Active Dr. Darien Lee MD Attending Provider Active Team Status: Inactive Member Role Status Dates Dr. Umm Mario MD Primary Care Provider Active Dr. Arsenio Mcgregor MD Admit Provider, Attending Provid er Active Therapy Administrative Assistant Relationship Specialty Start Date End Date Manuel Logan MD [address] [place] [address] PCP - General Family Medicine 12/08/18 Tristan Montana MD Specialty Tap And Die Maker Technician Cardiology 07/15/16 Therapy Administrative Assistant Relationship Specialty Start Date End Date Manuel Logan MD [address] [place] [address] PCP - General Family Medicine 12/08/18 Tristan Montana MD Specialty Tap And Die Maker Technician Cardiology 07/15/16 Therapy Administrative Assistant Relationship Specialty Start Date End Date Manuel Logan MD [address] [place] [address] PCP - General Family Medicine 12/08/18 Tristan Montana MD Specialty Tap And Die Maker Technician Cardiology 07/15/16 Therapy Administrative Assistant Relationship Specialty Start Date End Date Manuel Logan MD [address] [id number] PCP - General Family Medicine 12/08/18 Tristan Montana MD Specialty Tap And Die Maker Technician Cardiology 07/15/16 Therapy Administrative Assistant Relationship Specialty Start Date End Date Manuel Logan MD [address] [place] [address] PCP - General Family Medicine 12/08/18 Tristan Montana MD Specialty Tap And Die Maker Technician Cardiology 07/15/16 Therapy Administrative Assistant Relationship Specialty Start Date End Date Manuel Logan MD [address] [place] [address] PCP - General Family Medicine 12/08/18 Tristan Montana MD Specialty Tap And Die Maker Technician Cardiology 07/15/16 Therapy Administrative Assistant Relationship Specialty Start Date End Date Manuel Logan MD [address] [place] [address] PCP - General Family Medicine 12/08/18 Tristan Montana MD Specialty Tap And Die Maker Technician Cardiology 07/15/16 Therapy Administrative Assistant Relationship Specialty Start Date End Date Manuel Logan MD [address] [place] [address] PCP - General Family Medicine 12/08/18 Tristan Montana MD Specialty Tap And Die Maker Technician Cardiology 07/15/16 Team Status: Active Member Role Status Dates Dr. Umm Mario MD Primary Care Provider Active Team Status: Inactive Member Role Status Dates Dr. Umm Mario MD Primary Care Provider Active Start: August 09, 2024 End: August 09, 2024 Dr. Umm Mario MD Referring Provider Active Start: August 09, 2024 End: August 09, 2024 Souleymane ULEVANO PA Attending Provider Active Sta rt: August 09, 2024 End: August 09, 2024 Team Status: Inactive Member Role Status Dates Dr. Umm Mario MD Primary Care Provider Active Start: August 15, 2024 End: August 15, 2024 Dr. Umm Mario MD Attending Provider Active Start: August 15, 2024 End: August 15, 2024 Dr. Umm Mario MD Referring Provider Active Start: August 15, 2024 End: August 15, 2024 Team Status: Inactive Member Role Status Dates Dr. Umm Mario MD Primary Care Provider Active Start: October 23, 2024 End: October 23, 2024 Dr. Umm Mario MD Referring Provider Active Start: October 23, 2024 End: October 23, 2024 Ava LUEVANO PA Attending Provider Active Start: October 23, 2024 End: October 23, 2024 Team Status: Inactive Member Role Status Dates Dr. Umm Mario MD Primary Care Provider Active Start: November 15, 2024 End: November 15, 2024 Dr. Umm Mario MD Attending Provider Active Start: November 15, 2024 End: November 15, 2024 Dr. Umm Mario MD Referring Provider Active Start: November 15, 2024 End: November 15, 2024 Team Status: Inactive Member Role Status Dates Dr. Umm Mario MD Primary Care Provider Active Start: November 30, 2024 End: November 30, 2024 Dr. Umm Mario MD Attending Provider Active Start: November 30, 2024 End: November 30, 2024 Dr. Umm Mario MD Referring Provider Active Start: November 30, 2024 End: November 30, 2024 Team Status: Inactive Member Role Status Dates Dr. Umm Mario MD Primary Care Provider Active Start: December 14, 2024 End: December 14, 2024 Dr. Umm Mario MD Referring Provider Active Start: December 14, 2024 End: December 14, 2024 Ailin Sharma CASTING MACHINE OPERATOR HELPER, CASTING MACHINE OPERATOR HELPER-C Attending Provider Active Start: December 14, 2024 End: December 14, 2024 Team Status: Inactive Member Role Status Dates Dr. Umm Mario MD Primary Care Provider Active Start: December 27, 2024 End: December 27, 2024 Dr. Umm Mario MD Attending Provider Active Start: December 27, 2024 End: December 27, 2024 Dr. Umm Mario MD Referring Provider Active Start: December 27, 2024 End: December 27, 2024 Team Status: Inactive Member Role Status Dates Dr. Umm Mario MD Primary Care Provider Active Start: January 02, 2025 End: January 02, 2025 Dr. Umm Mario MD Attending Provider Active Start: January 02, 2025 End: January 02, 2025 Dr. Umm Mario MD Referring Provider Active Start: January 02, 2025 End: January 02, 2025 Team Status: Inactive Member Role Status Dates Dr. Umm Mario MD Primary Care Provider Active Start: February 14, 2025 End: February 14, 2025 Dr. Umm Mario MD Attending Provider Active Start: February 14, 2025 End: February 14, 2025 Dr. Umm Mario MD Referring Provider Active Start: February 14, 2025 End: February 14, 2025 Team Status: Active Member Role Status Dates Dr. Umm Mario MD Primary Care Provider Active Start: February 14, 2025 Dr. Umm Mario MD Attending Provider Active Start: February 14, 2025 Dr. Umm Mario MD Referring Provider Active Start: February 14, 2025 Team Status: Inactive Member Role Status Dates Dr. Umm Mario MD Primary Care Provider Active Start: February 19, 2025 End: February 19, 2025 Dr. Umm Mario MD Referring Provider Active Start: February 19, 2025 End: February 19, 2025 Gretchen Nguyen CASTING MACHINE OPERATOR HELPER, CASTING MACHINE OPERATOR HELPER-C Attending Provider Active Start: February 19, 2025 End: February 19, 2025 Team Status: Active Member Role Status Dates Dr. Umm Mario MD Primary Care Provider Active Start: March 05, 2025 Gretchen Nguyen CASTING MACHINE OPERATOR HELPER, CASTING MACHINE OPERATOR HELPER-C Attending Provider Active Start: March 05, 2025 Gretchen Nguyen CASTING MACHINE OPERATOR HELPER, CASTING MACHINE OPERATOR HELPER-C Referring Provider Active Start: March 05, 2025 Team Status: Active Member Role Status Dates Dr. Umm Mario MD Primary Care Provider Active Start: March 07, 2025 Gretchen Nguyen CASTING MACHINE OPERATOR HELPER, CASTING MACHINE OPERATOR HELPER-C Attending Provider Active Start: March 07, 2025 Gretchen Nguyen CASTING MACHINE OPERATOR HELPER, CASTING MACHINE OPERATOR HELPER-C Referring Provider Active Start: March 07, 2025 Team Status: Inactive Member Role Status Dates Dr. Umm Mario MD Primary Care Provider Active Start: March 10, 2025 End: March 10, 2025 Dr. Rolan Peña DO Emergency Provider Active Start : March 10, 2025 End: March 10, 2025 Team Status: Inactive Member Role Status Dates Dr. Umm Mario MD Primary Care Provider Active Start: March 07, 2025 End: March 07, 2025 Gretchen Nguyen CASTING MACHINE OPERATOR HELPER, CASTING MACHINE OPERATOR HELPER-C Attending Provider Active Start: March 07, 2025 End: March 07, 2025 Gretchen Nguyen CASTING MACHINE OPERATOR HELPER, CASTING MACHINE OPERATOR HELPER-C Referring Provider Active Start: March 07, 2025 End: March 07, 2025 Team Status: Active Member Role/Relationship Status Dates Dr. Umm Mario MD Primary Care Provider Active Team Status: Inactive Member Role/Relationship Status Dates Dr. Umm Mario MD Primary Care Provider Active Start: November 30, 2024 End: November 30, 2024 Dr. Umm Mario MD Attending Provider Active Start: November 30, 2024 End: November 30, 2024 Dr. Umm Mario MD Referring Provider Active Start: November 30, 2024 End: November 30, 2024 Team Status: Inactive Member Role/Relationship Status Dates Dr. Umm Mario MD Primary Care Provider Active Start: December 14, 2024 End: December 14, 2024 Dr. Umm Mario MD Referring Provider Active Start: December 14, 2024 End: December 14, 2024 Ailin Sharma CASTING MACHINE OPERATOR HELPER, CASTING MACHINE OPERATOR HELPER-C Attending Provider Active Start: December 14, 2024 End: December 14, 2024 Team Status: Inactive Member Role/Relationship Status Dates Dr. Umm Mario MD Primary Care Provider Active Start: December 27, 2024 End: December 27, 2024 Dr. Umm Mario MD Attending Provider Active Start: December 27, 2024 End: December 27, 2024 Dr. Umm Mario MD Referring Provider Active Start: December 27, 2024 End: December 27, 2024 Team Status: Inactive Member Role/Relationship Status Dates Dr. Umm Mario MD Primary Care Provider Active Start: January 02, 2025 End: January 02, 2025 Dr. Umm Mario MD Attending Provider Active Start: January 02, 2025 End: January 02, 2025 Dr. Umm Mario MD Referring Provider Active Start: January 02, 2025 End: January 02, 2025 Team Status: Inactive Member Role/Relationship Status Dates Dr. Umm Mario MD Primary Care Provider Active Start: February 14, 2025 End: February 14, 2025 Dr. Umm Mario MD Attending Provider Active Start: February 14, 2025 End: February 14, 2025 Dr. Umm Mario MD Referring Provider Active Start: February 14, 2025 End: February 14, 2025 Team Status: Inactive Member Role/Relationship Status Dates Dr. Umm Mario MD Primary Care Provider Active Start: February 14, 2025 End: February 14, 2025 Dr. Umm Mario MD Attending Provider Active Start: February 14, 2025 End: February 14, 2025 Dr. Umm Mario MD Referring Provider Active Start: February 14, 2025 End: February 14, 2025 Team Status: Inactive Member Role/Relationship Status Dates Dr. Umm Mario MD Primary Care Provider Active Start: February 19, 2025 End: February 19, 2025 Dr. Umm Mario MD Referring Provider Active Start: February 19, 2025 End: February 19, 2025 Gretchen Nguyen CASTING MACHINE OPERATOR HELPER, CASTING MACHINE OPERATOR HELPER-C Attending Provider Active Start: February 19, 2025 End: February 19, 2025 Team Status: Active Member Role/Relationship Status Dates Dr. Umm Mario MD Primary Care Provider Active Start: March 05, 2025 Gretchen Nguyen CASTING MACHINE OPERATOR HELPER, CASTING MACHINE OPERATOR HELPER-C Attending Provider Active Start: March 05, 2025 Gretchen Nguyen CASTING MACHINE OPERATOR HELPER, CASTING MACHINE OPERATOR HELPER-C Referring Provider Active Start: March 05, 2025 Team Status: Active Member Role/Relationship Status Dates Dr. Umm Mario MD Primary Care Provider Active Start: March 05, 2025 Dr. Woody Montana MD Attending Provider Activ e Start: March 05, 2025 Gretchen Nguyen CASTING MACHINE OPERATOR HELPER, CASTING MACHINE OPERATOR HELPER-C Referring Provider Active Start: March 05, 2025 Team Status: Inactive Member Role/Relationship Status Dates Dr. Umm Mario MD Primary Care Provider Active Start: March 07, 2025 End: March 07, 2025 Gretchen Nguyen CASTING MACHINE OPERATOR HELPER, CASTING MACHINE OPERATOR HELPER-C Attending Provider Active Start: March 07, 2025 End: March 07, 2025 Gretchen Nguyen CASTING MACHINE OPERATOR HELPER, CASTING MACHINE OPERATOR HELPER-C Referring Provider Active Start: March 07, 2025 End: March 07, 2025 Team Status: Inactive Member Role/Relationship Status Dates Dr. Umm Mario MD Primary Care Provider Active Start: March 10, 2025 End: March 10, 2025 Dr. Rolan Peña DO Attending Provider Active Start : March 10, 2025 End: March 10, 2025 Dr. Rolan Peña DO Emergency Provider Active Start : March 10, 2025 End: March 10, 2025 Team Status: Active Member Role/Relationship Status Dates Dr. Umm Mario MD Primary Care Provider Active Start: March 14, 2025 Gretchen Nguyen CASTING MACHINE OPERATOR HELPER, CASTING MACHINE OPERATOR HELPER-C Attending Provider Active Start: March 14, 2025 Gretchen Nguyen CASTING MACHINE OPERATOR HELPER, CASTING MACHINE OPERATOR HELPER-C Referring Provider Active Start: March 14, 2025 Team Status: Inactive Member Role/Relationship Status Dates Dr. Umm Mario MD Primary Care Provider Active Start: March 17, 2025 End: March 17, 2025 Dr. Hai Rand DO Emergency Provider Active Start: March 17, 2025 End: March 17, 2025 Team Status: Inactive Member Role/Relationship Status Dates Dr. Umm Mario MD Primary Care Provider Active Start: March 17, 2025 End: March 17, 2025 Dr. Denzel Chau MD Emergency Provider Active S tart: March 17, 2025 End: March 17, 2025 Team Status: Inactive Member Role/Relationship Status Dates Dr. Umm Mario MD Primary Care Provider Active Start: March 14, 2025 End: March 14, 2025 Gretchen Nguyen CASTING MACHINE OPERATOR HELPER, CASTING MACHINE OPERATOR HELPER-C Attending Provider Active Start: March 14, 2025 End: March 14, 2025 Gretchen Nguyen CASTING MACHINE OPERATOR HELPER, CASTING MACHINE OPERATOR HELPER-C Referring Provider Active Start: March 14, 2025 End: March 14, 2025 Team Status: Inactive Member Role/Relationship Status Dates Dr. Umm Mario MD Primary Care Provider Active Start: March 17, 2025 End: March 17, 2025 Dr. Hai Rand DO Attending Provider Active Start: March 17, 2025 End: March 17, 2025 Dr. Hai Rand DO Emergency Provider Active Start: March 17, 2025 End: March 17, 2025 Team Status: Inactive Member Role/Relationship Status Dates Dr. Umm Mario MD Primary Care Provider Active Start: March 17, 2025 End: March 17, 2025 Dr. Denzel Chau MD Attending Provider Active S tart: March 17, 2025 End: March 17, 2025 Dr. Denzel Chau MD Emergency Provider Active S tart: March 17, 2025 End: March 17, 2025 Team Status: Inactive Member Role/Relationship Status Dates Dr. Umm Mario MD Primary Care Provider Active Start: March 21, 2025 End: March 21, 2025 Dr. Umm Mario MD Referring Provider Active Start: March 21, 2025 End: March 21, 2025 Dr. Odalis Schmidt MD Attending Provider Active Start: March 21, 2025 End: March 21, 2025 Team Status: Inactive Member Role/Relationship Status Dates Dr. Umm Mario MD Primary Care Provider Active Start: December 14, 2024 End: December 14, 2024 Dr. Umm Mario MD Referring Provider Active Start: December 14, 2024 End: December 14, 2024 Ailin Sharma NP, CASTING MACHINE OPERATOR HELPER-C Attending Provider Active Start: December 14, 2024 End: December 14, 2024 Team Status: Inactive Member Role/Relationship Status Dates Dr. Umm Mario MD Primary Care Provider Active Start: December 27, 2024 End: December 27, 2024 Dr. Umm Mario MD Attending Provider Active Start: December 27, 2024 End: December 27, 2024 Dr. Umm Mario MD Referring Provider Active Start: December 27, 2024 End: December 27, 2024 Team Status: Inactive Member Role/Relationship Status Dates Dr. Umm Mario MD Primary Care Provider Active Start: January 02, 2025 End: January 02, 2025 Dr. Umm Mario MD Attending Provider Active Start: January 02, 2025 End: January 02, 2025 Dr. Umm Mario MD Referring Provider Active Start: January 02, 2025 End: January 02, 2025 Team Status: Inactive Member Role/Relationship Status Dates Dr. Umm Mario MD Primary Care Provider Active Start: February 14, 2025 End: February 14, 2025 Dr. Umm Mario MD Attending Provider Active Start: February 14, 2025 End: February 14, 2025 Dr. Umm Mario MD Referring Provider Active Start: February 14, 2025 End: February 14, 2025 Team Status: Inactive Member Role/Relationship Status Dates Dr. Umm Mario MD Primary Care Provider Active Start: February 19, 2025 End: February 19, 2025 Dr. Umm Mario MD Referring Provider Active Start: February 19, 2025 End: February 19, 2025 Grethcen Nguyen CASTING MACHINE OPERATOR HELPER, CASTING MACHINE OPERATOR HELPER-C Attending Provider Active Start: February 19, 2025 End: February 19, 2025 Team Status: Active Member Role/Relationship Status Dates Dr. Umm Mario MD Primary Care Provider Active Start: March 05, 2025 Gretchen Nguyen CASTING MACHINE OPERATOR HELPER, CASTING MACHINE OPERATOR HELPER-C Attending Provider Active Start: March 05, 2025 Gretchen Nguyen CASTING MACHINE OPERATOR HELPER, CASTING MACHINE OPERATOR HELPER-C Referring Provider Active Start: March 05, 2025 Team Status: Active Member Role/Relationship Status Dates Dr. Umm Mairo MD Primary Care Provider Active Start: March 05, 2025 Dr. Woody Montana MD Attending Provider Activ e Start: March 05, 2025 Gretchen Nguyen CASTING MACHINE OPERATOR HELPER, CASTING MACHINE OPERATOR HELPER-C Referring Provider Active Start: March 05, 2025 Team Status: Inactive Member Role/Relationship Status Dates Dr. Umm Mario MD Primary Care Provider Active Start: March 07, 2025 End: March 07, 2025 Gretchen Nguyen CASTING MACHINE OPERATOR HELPER, CASTING MACHINE OPERATOR HELPER-C Attending Provider Active Start: March 07, 2025 End: March 07, 2025 Gretchen Nguyen CASTING MACHINE OPERATOR HELPER, CASTING MACHINE OPERATOR HELPER-C Referring Provider Active Start: March 07, 2025 End: March 07, 2025 Team Status: Inactive Member Role/Relationship Status Dates Dr. Umm Mario MD Primary Care Provider Active Start: March 10, 2025 End: March 10, 2025 Dr. Rolan Peña DO Attending Provider Active Start : March 10, 2025 End: March 10, 2025 Dr. Rolan Peña DO Emergency Provider Active Start : March 10, 2025 End: March 10, 2025 Team Status: Inactive Member Role/Relationship Status Dates Dr. Umm Mario MD Primary Care Provider Active Start: March 14, 2025 End: March 14, 2025 Gretchen Nguyen CASTING MACHINE OPERATOR HELPER, CASTING MACHINE OPERATOR HELPER-C Attending Provider Active Start: March 14, 2025 End: March 14, 2025 Gretchen Nguyen CASTING MACHINE OPERATOR HELPER, CASTING MACHINE OPERATOR HELPER-C Referring Provider Active Start: March 14, 2025 End: March 14, 2025 Team Status: Inactive Member Role/Relationship Status Dates Dr. Umm Mario MD Primary Care Provider Active Start: March 17, 2025 End: March 17, 2025 Dr. Hai Rand DO Attending Provider Active Start: March 17, 2025 End: March 17, 2025 Dr. Hai Rand DO Emergency Provider Active Start: March 17, 2025 End: March 17, 2025 Team Status: Inactive Member Role/Relationship Status Dates Dr. Umm Mario MD Primary Care Provider Active Start: March 17, 2025 End: March 17, 2025 Dr. Denzel Chau MD Attending Provider Active S tart: March 17, 2025 End: March 17, 2025 Dr. Denzel Chau MD Emergency Provider Active S tart: March 17, 2025 End: March 17, 2025 Team Status: Inactive Member Role/Relationship Status Dates Dr. Umm Mario MD Primary Care Provider Active Start: March 21, 2025 End: March 21, 2025 Dr. Umm Mario MD Referring Provider Active Start: March 21, 2025 End: March 21, 2025 Dr. Odalis Schmidt MD Attending Provider Active Start: March 21, 2025 End: March 21, 2025 Team Status: Inactive Member Role/Relationship Status Dates Dr. Umm Mario MD Primary Care Provider Active Start: April 02, 2025 End: April 02, 2025 Dr. Odalis Schmidt MD Attending Provider Active Start: April 02, 2025 End: April 02, 2025 Dr. Odalis Schmidt MD Referring Provider Active Start: April 02, 2025 End: April 02, 2025 Team Status: Active Member Role/Relationship Status Dates Dr. Umm Mario MD Primary Care Provider Active Start: April 02, 2025 Dr. Vanessa Simmons MD Attending Provider Active Start: April 02, 2025 Team Status: Inactive Member Role/Relationship Status Dates Dr. Umm Mario MD Primary Care Provider Active Start: December 27, 2024 End: December 27, 2024 Dr. Umm Mario MD Attending Provider Active Start: December 27, 2024 End: December 27, 2024 Dr. Umm Mario MD Referring Provider Active Start: December 27, 2024 End: December 27, 2024 Team Status: Inactive Member Role/Relationship Status Dates Dr. Umm Mario MD Primary Care Provider Active Start: January 02, 2025 End: January 02, 2025 Dr. Umm Mario MD Attending Provider Active Start: January 02, 2025 End: January 02, 2025 Dr. Umm Mario MD Referring Provider Active Start: January 02, 2025 End: January 02, 2025 Team Status: Inactive Member Role/Relationship Status Dates Dr. Umm Mario MD Primary Care Provider Active Start: February 14, 2025 End: February 14, 2025 Dr. Umm Mario MD Attending Provider Active Start: February 14, 2025 End: February 14, 2025 Dr. Umm Mario MD Referring Provider Active Start: February 14, 2025 End: February 14, 2025 Team Status: Inactive Member Role/Relationship Status Dates Dr. Umm Mario MD Primary Care Provider Active Start: February 19, 2025 End: February 19, 2025 Dr. Umm Mario MD Referring Provider Active Start: February 19, 2025 End: February 19, 2025 Gretchen Nguyen CASTING MACHINE OPERATOR HELPER, CASTING MACHINE OPERATOR HELPER-C Attending Provider Active Start: February 19, 2025 End: February 19, 2025 Team Status: Active Member Role/Relationship Status Dates Dr. Umm Mario MD Primary Care Provider Active Start: March 05, 2025 Gretchen Nguyen CASTING MACHINE OPERATOR HELPER, CASTING MACHINE OPERATOR HELPER-C Attending Provider Active Start: March 05, 2025 Gretchen Nguyen CASTING MACHINE OPERATOR HELPER, CASTING MACHINE OPERATOR HELPER-C Referring Provider Active Start: March 05, 2025 Team Status: Active Member Role/Relationship Status Dates Dr. Umm Mario MD Primary Care Provider Active Start: March 05, 2025 Dr. Woody Montana MD Attending Provider Activ e Start: March 05, 2025 Gretchen Nguyen CASTING MACHINE OPERATOR HELPER, CASTING MACHINE OPERATOR HELPER-C Referring Provider Active Start: March 05, 2025 Team Status: Inactive Member Role/Relationship Status Dates Dr. Umm Mario MD Primary Care Provider Active Start: March 07, 2025 End: March 07, 2025 Gretchen Nguyen CASTING MACHINE OPERATOR HELPER, CASTING MACHINE OPERATOR HELPER-C Attending Provider Active Start: March 07, 2025 End: March 07, 2025 Gretchen Nguyen CASTING MACHINE OPERATOR HELPER, CASTING MACHINE OPERATOR HELPER-C Referring Provider Active Start: March 07, 2025 End: March 07, 2025 Team Status: Inactive Member Role/Relationship Status Dates Dr. Umm Mario MD Primary Care Provider Active Start: March 10, 2025 End: March 10, 2025 Dr. Rolan Peña DO Attending Provider Active Start : March 10, 2025 End: March 10, 2025 Dr. Rolan Peña DO Emergency Provider Active Start : March 10, 2025 End: March 10, 2025 Team Status: Inactive Member Role/Relationship Status Dates Dr. Umm Mario MD Primary Care Provider Active Start: March 14, 2025 End: March 14, 2025 Gretchen Nguyen CASTING MACHINE OPERATOR HELPER, CASTING MACHINE OPERATOR HELPER-C Attending Provider Active Start: March 14, 2025 End: March 14, 2025 Gretchen Nguyen CASTING MACHINE OPERATOR HELPER, CASTING MACHINE OPERATOR HELPER-C Referring Provider Active Start: March 14, 2025 End: March 14, 2025 Team Status: Inactive Member Role/Relationship Status Dates Dr. Umm Mario MD Primary Care Provider Active Start: March 17, 2025 End: March 17, 2025 Dr. Hai Rand DO Attending Provider Active Start: March 17, 2025 End: March 17, 2025 Dr. Hai Rand DO Emergency Provider Active Start: March 17, 2025 End: March 17, 2025 Team Status: Inactive Member Role/Relationship Status Dates Dr. Umm Mario MD Primary Care Provider Active Start: March 17, 2025 End: March 17, 2025 Dr. Denzel Chau MD Attending Provider Active S tart: March 17, 2025 End: March 17, 2025 Dr. Denzel Chau MD Emergency Provider Active S tart: March 17, 2025 End: March 17, 2025 Team Status: Inactive Member Role/Relationship Status Dates Dr. Umm Mario MD Primary Care Provider Active Start: March 21, 2025 End: March 21, 2025 Dr. Umm Mario MD Referring Provider Active Start: March 21, 2025 End: March 21, 2025 Dr. Odalis Schmidt MD Attending Provider Active Start: March 21, 2025 End: March 21, 2025 Team Status: Inactive Member Role/Relationship Status Dates Dr. Umm Mario MD Primary Care Provider Active Start: April 02, 2025 End: April 02, 2025 Dr. Odalis Schmidt MD Attending Provider Active Start: April 02, 2025 End: April 02, 2025 Dr. Odalis Schmidt MD Referring Provider Active Start: April 02, 2025 End: April 02, 2025 Team Status: Active Member Role/Relationship Status Dates Dr. Umm Mario MD Primary Care Provider Active Start: April 02, 2025 Dr. Vanessa Simmons MD Attending Provider Active Start: April 02, 2025 Team Status: Inactive Member Role/Relationship Status Dates Dr. Umm Mario MD Primary Care Provider Active Start: April 19, 2025 End: April 19, 2025 Dr. Umm Mario MD Referring Provider Active Start: April 19, 2025 End: April 19, 2025 Allison Kang NP-C Attending Provider Active Start: April 19, 2025 End: April 19, 2025 Team Status: Inactive Member Role/Relationship Status Dates Dr. Umm Mario MD Primary Care Provider Active Start: February 14, 2025 End: February 14, 2025 Dr. Umm Mario MD Attending Provider Active Start: February 14, 2025 End: February 14, 2025 Dr. Umm Mario MD Referring Provider Active Start: February 14, 2025 End: February 14, 2025 Team Status: Inactive Member Role/Relationship Status Dates Dr. Umm Mario MD Primary Care Provider Active Start: February 14, 2025 End: February 14, 2025 Dr. Umm Mario MD Attending Provider Active Start: February 14, 2025 End: February 14, 2025 Dr. Umm Mario MD Referring Provider Active Start: February 14, 2025 End: February 14, 2025 Team Status: Inactive Member Role/Relationship Status Dates Dr. Umm Mario MD Primary Care Provider Active Start: February 19, 2025 End: February 19, 2025 Dr. Umm Mario MD Referring Provider Active Start: February 19, 2025 End: February 19, 2025 Gretchen Nguyen CASTING MACHINE OPERATOR HELPER, CASTING MACHINE OPERATOR HELPER-C Attending Provider Active Start: February 19, 2025 End: February 19, 2025 Team Status: Active Member Role/Relationship Status Dates Dr. Umm Mario MD Primary Care Provider Active Start: March 05, 2025 Gretchen Nguyen CASTING MACHINE OPERATOR HELPER, CASTING MACHINE OPERATOR HELPER-C Attending Provider Active Start: March 05, 2025 Gretchen Nguyen CASTING MACHINE OPERATOR HELPER, CASTING MACHINE OPERATOR HELPER-C Referring Provider Active Start: March 05, 2025 Team Status: Active Member Role/Relationship Status Dates Dr. Umm Mario MD Primary Care Provider Active Start: March 05, 2025 Dr. Woody Montana MD Attending Provider Activ e Start: March 05, 2025 Gretchen Nguyen CASTING MACHINE OPERATOR HELPER, CASTING MACHINE OPERATOR HELPER-C Referring Provider Active Start: March 05, 2025 Team Status: Inactive Member Role/Relationship Status Dates Dr. Umm Mario MD Primary Care Provider Active Start: March 07, 2025 End: March 07, 2025 Gretchen Nguyen CASTING MACHINE OPERATOR HELPER, CASTING MACHINE OPERATOR HELPER-C Attending Provider Active Start: March 07, 2025 End: March 07, 2025 Gretchen Nguyen CASTING MACHINE OPERATOR HELPER, CASTING MACHINE OPERATOR HELPER-C Referring Provider Active Start: March 07, 2025 End: March 07, 2025 Team Status: Inactive Member Role/Relationship Status Dates Dr. Umm Mario MD Primary Care Provider Active Start: March 10, 2025 End: March 10, 2025 Dr. Rolan Peña DO Attending Provider Active Start : March 10, 2025 End: March 10, 2025 Dr. Rolan Peña DO Emergency Provider Active Start : March 10, 2025 End: March 10, 2025 Team Status: Inactive Member Role/Relationship Status Dates Dr. Umm Mario MD Primary Care Provider Active Start: March 14, 2025 End: March 14, 2025 Gretchen Nguyen CASTING MACHINE OPERATOR HELPER, CASTING MACHINE OPERATOR HELPER-C Attending Provider Active Start: March 14, 2025 End: March 14, 2025 Gretchen Nguyen CASTING MACHINE OPERATOR HELPER, CASTING MACHINE OPERATOR HELPER-C Referring Provider Active Start: March 14, 2025 End: March 14, 2025 Team Status: Inactive Member Role/Relationship Status Dates Dr. Umm Mario MD Primary Care Provider Active Start: March 17, 2025 End: March 17, 2025 Dr. Hai Rand DO Attending Provider Active Start: March 17, 2025 End: March 17, 2025 Dr. Hai Rand DO Emergency Provider Active Start: March 17, 2025 End: March 17, 2025 Team Status: Inactive Member Role/Relationship Status Dates Dr. Umm Mario MD Primary Care Provider Active Start: March 17, 2025 End: March 17, 2025 Dr. Denzel Chau MD Attending Provider Active S tart: March 17, 2025 End: March 17, 2025 Dr. Denzel Chau MD Emergency Provider Active S tart: March 17, 2025 End: March 17, 2025 Team Status: Inactive Member Role/Relationship Status Dates Dr. Umm Mario MD Primary Care Provider Active Start: March 21, 2025 End: March 21, 2025 Dr. Umm Mario MD Referring Provider Active Start: March 21, 2025 End: March 21, 2025 Dr. Odalis Schmidt MD Attending Provider Active Start: March 21, 2025 End: March 21, 2025 Team Status: Inactive Member Role/Relationship Status Dates Dr. Umm Mario MD Primary Care Provider Active Start: April 02, 2025 End: April 02, 2025 Dr. Odalis Schmidt MD Attending Provider Active Start: April 02, 2025 End: April 02, 2025 Dr. Odalis Schmidt MD Referring Provider Active Start: April 02, 2025 End: April 02, 2025 Team Status: Active Member Role/Relationship Status Dates Dr. Umm Mario MD Primary Care Provider Active Start: April 02, 2025 Dr. Vanessa Simmons MD Attending Provider Active Start: April 02, 2025 Team Status: Inactive Member Role/Relationship Status Dates Dr. Umm Mario MD Primary Care Provider Active Start: April 19, 2025 End: April 19, 2025 Dr. Umm Mario MD Referring Provider Active Start: April 19, 2025 End: April 19, 2025 HUAN Delgado Attending Provider Active Start: April 19, 2025 End: April 19, 2025 Team Status: Inactive Member Role/Relationship Status Dates Dr. Umm Mario MD Primary Care Provider Active Start: May 08, 2025 End: May 08, 2025 Dr. Umm Mario MD Referring Provider Active Start: May 08, 2025 End: May 08, 2025 Maurice LUEVANO PA Attending Provider Active St art: May 08, 2025 End: May 08, 2025 Therapy Administrative Assistant Relationship Specialty Start Date End Date Umm Mario MD [address] [place] [id number] PCP - General Internal Medicine 05/13/25 Gretchen Nguyen CNP [id number] [place] [id number]- Nurse Practitioner Internal Medicine 05/13/25 Odalis Schmidt [address] [place] [address] Specialty Tap And Die Maker Technician Cardiology 05/13/25 Team Status: Inactive Member Role/Relationship Status Dates Dr. Umm Mario MD Primary Care Provider Active Start: May 08, 2025 End: May 08, 2025 BASSEM Santana Attending Provider Active St art: May 08, 2025 End: May 08, 2025 BASSEM Santana Referring Provider Active St art: May 08, 2025 End: May 08, 2025 Team Status: Inactive Member Role/Relationship Status Dates Dr. Umm Mario MD Primary Care Provider Active Start: May 20, 2025 End: May 20, 2025 Dr. Roberto Tanner DO Emergency Provider Activ e Start: May 20, 2025 End: May 20, 2025 Therapy Administrative Assistant Relationship Specialty Start Date End Date Umm Mario MD [address] [address] PCP - General Internal Medicine 05/13/25 Gretchen Nguyen, RANGE OPERATOR [address] [place] [address] Nurse Practitioner Internal Medicine 05/13/25 Odalis Schmidt [address] [place] [address] Specialty Tap And Die Maker Technician Cardiology 05/13/25 Therapy Administrative Assistant Relationship Specialty Start Date End Date Umm Mario MD [address] [address] PCP - General Internal Medicine 05/13/25 Gretchen Nguyen, RANGE OPERATOR [address] [place] [address] Nurse Practitioner Internal Medicine 05/13/25 Odalis Schmidt [address] [place], [place] [id number] Specialty Tap And Die Maker Technician Cardiology 05/13/25 Therapy Administrative Assistant Relationship Specialty Start Date End Date Umm Mario MD [address] [place], [place] [id number] PCP - General Internal Medicine 05/13/25 Gretchen Nguyen CNP [id number] [place], [place] [id number] Nurse Practitioner Internal Medicine 05/13/25 Odalis Schmidt [address] [place], [place] [id number] Specialty Tap And Die Maker Technician Cardiology 05/13/25 Team Status: Active Member Role/Relationship Status Dates Dr. Umm Mario MD Primary care physician Activ e Team Status: Inactive Member Role/Relationship Status Dates Dr. Umm Mario MD Primary care physician Activ e Start: February 19, 2025 End: February 19, 2025 Dr. Umm Mario MD Referring Provider Active Start: February 19, 2025 End: February 19, 2025 Gretchen Nguyen CASTING MACHINE OPERATOR HELPER, CASTING MACHINE OPERATOR HELPER-C Attending physician Active Start: February 19, 2025 End: February 19, 2025 Team Status: Active Member Role/Relationship Status Dates Dr. Umm Mario MD Primary care physician Activ e Start: March 05, 2025 Gretchen Nguyen NP, CASTING MACHINE OPERATOR HELPER-C Attending physician Active Start: March 05, 2025 Gretchen Nguyen NP, CASTING MACHINE OPERATOR HELPER-C Referring Provider Active Start: March 05, 2025 Team Status: Active Member Role/Relationship Status Dates Dr. Umm Mario MD Primary care physician Activ e Start: March 05, 2025 Dr. Woody Montana MD Attending physician Acti ve Start: March 05, 2025 Gretchen Nguyen CASTING MACHINE OPERATOR HELPER, CASTING MACHINE OPERATOR HELPER-C Referring Provider Active Start: March 05, 2025 Team Status: Inactive Member Role/Relationship Status Dates Dr. Umm Mario MD Primary care physician Activ e Start: March 07, 2025 End: March 07, 2025 Gretchen Nguyen CASTING MACHINE OPERATOR HELPER, CASTING MACHINE OPERATOR HELPER-C Attending physician Active Start: March 07, 2025 End: March 07, 2025 Gretchen Nguyen CASTING MACHINE OPERATOR HELPER, CASTING MACHINE OPERATOR HELPER-C Referring Provider Active Start: March 07, 2025 End: March 07, 2025 Team Status: Inactive Member Role/Relationship Status Dates Dr. Umm Mario MD Primary care physician Activ e Start: March 10, 2025 End: March 10, 2025 Dr. Rolan Peña DO Attending physician Active Star t: March 10, 2025 End: March 10, 2025 Dr. Rolan Peña DO Emergency Department Physician Active Start: March 10, 2025 End: March 10, 2025 Team Status: Inactive Member Role/Relationship Status Dates Dr. Umm Mario MD Primary care physician Activ e Start: March 14, 2025 End: March 14, 2025 Gretchen Nguyen CASTING MACHINE OPERATOR HELPER, CASTING MACHINE OPERATOR HELPER-C Attending physician Active Start: March 14, 2025 End: March 14, 2025 Gretchen Nguyen CASTING MACHINE OPERATOR HELPER, CASTING MACHINE OPERATOR HELPER-C Referring Provider Active Start: March 14, 2025 End: March 14, 2025 Team Status: Inactive Member Role/Relationship Status Dates Dr. Umm Mario MD Primary care physician Activ e Start: March 17, 2025 End: March 17, 2025 Dr. Hai Rand DO Attending physician Active Start: March 17, 2025 End: March 17, 2025 Dr. Hai Rand DO Emergency Departga nt Physician Active Start: March 17, 2025 End: March 17, 2025 Team Status: Inactive Member Role/Relationship Status Dates Dr. Umm Mario MD Primary care physician Activ e Start: March 17, 2025 End: March 17, 2025 Dr. Denzel Chau MD Attending physician Active Start: March 17, 2025 End: March 17, 2025 Dr. [facility] Active Start: March 17, 2025 End: March 17, 2025 Team Status: Inactive Member Role/Relationship Status Dates Dr. Umm Mario MD Primary care physician Activ e Start: March 21, 2025 End: March 21, 2025 Dr. Umm Mario MD Referring Provider Active Start: March 21, 2025 End: March 21, 2025 Dr. Odalis Schmidt MD Attending physician Active Start: March 21, 2025 End: March 21, 2025 Team Status: Inactive Member Role/Relationship Status Dates Dr. Umm Mario MD Primary care physician Activ e Start: April 02, 2025 End: April 02, 2025 Dr. Odalsi Schmidt MD Attending physician Active Start: April 02, 2025 End: April 02, 2025 Dr. Odalis Schmidt MD Referring Provider Active Start: April 02, 2025 End: April 02, 2025 Team Status: Active Member Role/Relationship Status Dates Dr. Umm Mario MD Primary care physician Activ e Start: April 02, 2025 Dr. Vanessa Simmons MD Attending physician Active Start: April 02, 2025 Team Status: Inactive Member Role/Relationship Status Dates Dr. Umm Mario MD Primary care physician Activ e Start: April 19, 2025 End: April 19, 2025 Dr. Umm Mario MD Referring Provider Active Start: April 19, 2025 End: April 19, 2025 HUAN Delgado Attending physician Active Start: April 19, 2025 End: April 19, 2025 Team Status: Inactive Member Role/Relationship Status Dates Dr. Umm Mario MD Primary care physician Activ e Start: May 08, 2025 End: May 08, 2025 Dr. Umm Mario MD Referring Provider Active Start: May 08, 2025 End: May 08, 2025 BASSEM Santana Attending physician Active S tart: May 08, 2025 End: May 08, 2025 Team Status: Inactive Member Role/Relationship Status Dates Dr. Umm Mario MD Primary care physician Activ e Start: May 08, 2025 End: May 08, 2025 BASSEM Santana Attending physician Active S tart: May 08, 2025 End: May 08, 2025 BASSEM Santana Referring Provider Active St art: May 08, 2025 End: May 08, 2025 Team Status: Inactive Member Role/Relationship Status Dates Dr. Umm Mario MD Primary care physician Activ e Start: May 20, 2025 End: May 20, 2025 Dr. Roberto Tanner DO Attending physician Active Start: May End: May 20, 2025 Dr. Roberto Tanner DO Emergency Department Physician Active Start: May 20, 2025 End: May 20, 2025 Team Status: Inactive Member Role/Relationship Status Dates Dr. Umm Mario MD Primary care physician Activ e Start: June 04, 2025 End: June 04, 2025 Maurice LUEVANO PA Attending physician Active S tart: June 04, 2025 End: June 04, 2025 Maurice LUEVANO PA Referring Provider Active St art: June 04, 2025 End: June 04, 2025 Team Status: Active Member Role/Relationship Status Dates Dr. Umm Mario MD Primary care physician Activ e Start: June 04, 2025 Dr. John Cool MD Attending physician Active Start: June 04, 2025 Maurice LUEVANO PA Referring Provider Active St art: June 04, 2025 Team Status: Inactive Member Role/Relationship Status Dates Dr. Umm Mario MD Primary care physician Activ e Start: June 07, 2025 End: June 07, 2025 Dr. Umm Mario MD Referring Provider Active Start: June 07, 2025 End: June 07, 2025 Maurice LUEVANO PA Attending physician Active S tart: June 07, 2025 End: June 07, 2025 Team Status: Inactive Member Role/Relationship Status Dates Dr. Umm Mario MD Primary care physician Activ e Start: June 17, 2025 End: June 17, 2025 Dr. Umm Mario MD Referring Provider Active Start: June 17, 2025 End: June 17, 2025 Ailin Sharma NP, CASTING MACHINE OPERATOR HELPER-C Attending physician Active Start: June 17, 2025 End: June 17, 2025 Team Status: Active Member Role/Relationship Status Dates Dr. Umm Mario MD Primary care physician Activ e Start: March 05, 2025 Gretchen Nguyen CASTING MACHINE OPERATOR HELPER, CASTING MACHINE OPERATOR HELPER-C Attending physician Active Start: March 05, 2025 Gretchen Nguyen CASTING MACHINE OPERATOR HELPER, CASTING MACHINE OPERATOR HELPER-C Referring Provider Active Start: March 05, 2025 Team Status: Active Member Role/Relationship Status Dates Dr. Umm Mario MD Primary care physician Activ e Start: March 05, 2025 Dr. Woody Montana MD Attending physician Acti ve Start: March 05, 2025 Gretchen Nguyen CASTING MACHINE OPERATOR HELPER, CASTING MACHINE OPERATOR HELPER-C Referring Provider Active Start: March 05, 2025 Team Status: Inactive Member Role/Relationship Status Dates Dr. Umm Mario MD Primary care physician Activ e Start: March 07, 2025 End: March 07, 2025 Gretchen Nguyen CASTING MACHINE OPERATOR HELPER, CASTING MACHINE OPERATOR HELPER-C Attending physician Active Start: March 07, 2025 End: March 07, 2025 Gretchen Nguyen CASTING MACHINE OPERATOR HELPER, CASTING MACHINE OPERATOR HELPER-C Referring Provider Active Start: March 07, 2025 End: March 07, 2025 Team Status: Inactive Member Role/Relationship Status Dates Dr. Umm Mario MD Primary care physician Activ e Start: March 10, 2025 End: March 10, 2025 Dr. Rolan Peña DO Attending physician Active Star t: March 10, 2025 End: March 10, 2025 Dr. Rolan Peña DO Emergency Department Physician Active Start: March 10, 2025 End: March 10, 2025 Team Status: Inactive Member Role/Relationship Status Dates Dr. Umm Mario MD Primary care physician Activ e Start: March 14, 2025 End: March 14, 2025 Gretchen Nguyen CASTING MACHINE OPERATOR HELPER, CASTING MACHINE OPERATOR HELPER-C Attending physician Active Start: March 14, 2025 End: March 14, 2025 Gretchen Nguyen CASTING MACHINE OPERATOR HELPER, CASTING MACHINE OPERATOR HELPER-C Referring Provider Active Start: March 14, 2025 End: March 14, 2025 Team Status: Inactive Member Role/Relationship Status Dates Dr. Umm Mario MD Primary care physician Activ e Start: March 17, 2025 End: March 17, 2025 Dr. Hai Rand DO Attending physician Active Start: March 17, 2025 End: March 17, 2025 Dr. Hai Rand DO Emergency Departme nt Physician Active Start: March 17, 2025 End: March 17, 2025 Team Status: Inactive Member Role/Relationship Status Dates Dr. Umm Mario MD Primary care physician Activ e Start: March 17, 2025 End: March 17, 2025 Dr. Denzel Chau MD Attending physician Active Start: March 17, 2025 End: March 17, 2025 Dr. [facility] Active Start: March 17, 2025 End: March 17, 2025 Team Status: Inactive Member Role/Relationship Status Dates Dr. Umm Mario MD Primary care physician Activ e Start: March 21, 2025 End: March 21, 2025 Dr. Umm Mario MD Referring Provider Active Start: March 21, 2025 End: March 21, 2025 Dr. Odalis Schmidt MD Attending physician Active Start: March 21, 2025 End: March 21, 2025 Team Status: Inactive Member Role/Relationship Status Dates Dr. Umm Mario MD Primary care physician Activ e Start: April 02, 2025 End: April 02, 2025 Dr. Odalis Schmidt MD Attending physician Active Start: April 02, 2025 End: April 02, 2025 Dr. Odalis Schmidt MD Referring Provider Active Start: April 02, 2025 End: April 02, 2025 Team Status: Active Member Role/Relationship Status Dates Dr. Umm Mario MD Primary care physician Activ e Start: April 02, 2025 Dr. Vanessa Simmons MD Attending physician Active Start: April 02, 2025 Team Status: Inactive Member Role/Relationship Status Dates Dr. Umm Mario MD Primary care physician Activ e Start: April 19, 2025 End: April 19, 2025 Dr. Umm Mario MD Referring Provider Active Start: April 19, 2025 End: April 19, 2025 HUAN Delgado Attending physician Active Start: April 19, 2025 End: April 19, 2025 Team Status: Inactive Member Role/Relationship Status Dates Dr. Umm Mario MD Primary care physician Activ e Start: May 08, 2025 End: May 08, 2025 Dr. Umm Mario MD Referring Provider Active Start: May 08, 2025 End: May 08, 2025 Maurice Wayt PA, PA Attending physician Active S tart: May 08, 2025 End: May 08, 2025 Team Status: Inactive Member Role/Relationship Status Dates Dr. Umm Mario MD Primary care physician Activ e Start: May 08, 2025 End: May 08, 2025 Maurice Longoria PA, PA Attending physician Active S tart: May 08, 2025 End: May 08, 2025 Maurice Longoria PA, PA Referring Provider Active St art: May 08, 2025 End: May 08, 2025 Team Status: Inactive Member Role/Relationship Status Dates Dr. Umm Mario MD Primary care physician Activ e Start: May 20, 2025 End: May 20, 2025 Dr. Roberto Tanner DO Attending physician Active Start: May End: May 20, 2025 Dr. Roberto Tanner DO Emergency Department Physician Active Start: May 20, 2025 End: May 20, 2025 Team Status: Inactive Member Role/Relationship Status Dates Dr. Umm Mario MD Primary care physician Activ e Start: June 04, 2025 End: June 04, 2025 Maurice LUEVANO, PA Attending physician Active S tart: June 04, 2025 End: June 04, 2025 Maurice Longoria PA, PA Referring Provider Active St art: June 04, 2025 End: June 04, 2025 Team Status: Active Member Role/Relationship Status Dates Dr. Umm Mario MD Primary care physician Activ e Start: June 04, 2025 Dr. John Cool MD Attending physician Active Start: June 04, 2025 Maurice Longoria PA, PA Referring Provider Active St art: June 04, 2025 Team Status: Inactive Member Role/Relationship Status Dates Dr. Umm Mario MD Primary care physician Activ e Start: June 07, 2025 End: June 07, 2025 Dr. Umm Mario MD Referring Provider Active Start: June 07, 2025 End: June 07, 2025 Maurice Longoria PA, PA Attending physician Active S tart: June 07, 2025 End: June 07, 2025 Team Status: Inactive Member Role/Relationship Status Dates Dr. Umm Mario MD Primary care physician Activ e Start: June 17, 2025 End: June 17, 2025 Dr. Umm Mario MD Referring Provider Active Start: June 17, 2025 End: June 17, 2025 DANO Aguilera NPC Attending physician Active Start: June 17, 2025 End: June 17, 2025 Team Status: Inactive Member Role/Relationship Status Dates Dr. Antonio Licona MD Attending physician Active Start: June 24, 2025 End: June 24, 2025 Team Status: Inactive Member Role/Relationship Status Dates Dr. Umm Mario MD Primary care physician Activ e Start: March 21, 2025 End: March 21, 2025 Dr. Umm Mario MD Referring Provider Active Start: March 21, 2025 End: March 21, 2025 Dr. Odalis Schmidt MD Attending physician Active Start: March 21, 2025 End: March 21, 2025 Team Status: Inactive Member Role/Relationship Status Dates Dr. Umm Mario MD Primary care physician Activ e Start: April 02, 2025 End: April 02, 2025 Dr. Odalis Schmidt MD Attending physician Active Start: April 02, 2025 End: April 02, 2025 Dr. Odalis Schmidt MD Referring Provider Active Start: April 02, 2025 End: April 02, 2025 Team Status: Active Member Role/Relationship Status Dates Dr. Umm Mario MD Primary care physician Activ e Start: April 02, 2025 Dr. Vanessa Simmons MD Attending physician Active Start: April 02, 2025 Team Status: Inactive Member Role/Relationship Status Dates Dr. Umm Mario MD Primary care physician Activ e Start: April 19, 2025 End: April 19, 2025 Dr. Umm Mario MD Referring Provider Active Start: April 19, 2025 End: April 19, 2025 DANO DelgadoC Attending physician Active Start: April 19, 2025 End: April 19, 2025 Team Status: Inactive Member Role/Relationship Status Dates Dr. Umm Mario MD Primary care physician Activ e Start: May 08, 2025 End: May 08, 2025 Dr. Umm Mario MD Referring Provider Active Start: May 08, 2025 End: May 08, 2025 Maurice Longoria PA, PA Attending physician Active S tart: May 08, 2025 End: May 08, 2025 Team Status: Inactive Member Role/Relationship Status Dates Dr. Umm Mario MD Primary care physician Activ e Start: May 08, 2025 End: May 08, 2025 Maurice Longoria PA, PA Attending physician Active S tart: May 08, 2025 End: May 08, 2025 Maurice Longoria PA, PA Referring Provider Active St art: May 08, 2025 End: May 08, 2025 Team Status: Inactive Member Role/Relationship Status Dates Dr. Umm Mario MD Primary care physician Activ e Start: May 20, 2025 End: May 20, 2025 Dr. Roberto Tanner DO Attending physician Active Start: May End: May 20, 2025 Dr. Roberto Tanner DO Emergency Department Physician Active Start: May 20, 2025 End: May 20, 2025 Team Status: Inactive Member Role/Relationship Status Dates Dr. Umm Mario MD Primary care physician Activ e Start: June 04, 2025 End: June 04, 2025 Maurice LUEVANO, PA Attending physician Active S tart: June 04, 2025 End: June 04, 2025 Maurice Longoria PA, PA Referring Provider Active St art: June 04, 2025 End: June 04, 2025 Team Status: Active Member Role/Relationship Status Dates Dr. Umm Mario MD Primary care physician Activ e Start: June 04, 2025 Dr. John Cool MD Attending physician Active Start: June 04, 2025 Maurice Longoria PA, PA Referring Provider Active St art: June 04, 2025 Team Status: Inactive Member Role/Relationship Status Dates Dr. Umm Mario MD Primary care physician Activ e Start: June 07, 2025 End: June 07, 2025 Dr. Umm Mario MD Referring Provider Active Start: June 07, 2025 End: June 07, 2025 Maurice Longoria PA, PA Attending physician Active S tart: June 07, 2025 End: June 07, 2025 Team Status: Inactive Member Role/Relationship Status Dates Dr. Umm Mario MD Primary care physician Activ e Start: June 17, 2025 End: June 17, 2025 Dr. Umm Mario MD Referring Provider Active Start: June 17, 2025 End: June 17, 2025 Ailin Sharma CASTING MACHINE OPERATOR HELPER, CASTING MACHINE OPERATOR HELPER-C Attending physician Active Start: June 17, 2025 End: June 17, 2025 Team Status: Inactive Member Role/Relationship Status Dates Dr. Antonio Licona MD Attending physician Active Start: June 24, 2025 End: June 24, 2025 Team Status: Inactive Member Role/Relationship Status Dates Dr. Umm Mario MD Referring Provider Active Start: July 02, 2025 End: July 02, 2025 Dr. Jeffrey Berkowitz MD Attending physician Active Start: July 02, 2025 End: July 02, 2025 Team Status: Active Member Role/Relationship Status Dates Dr. Umm Mario MD Primary care physician Activ e Start: July 05, 2025 Dr. Jeffrey Berkowitz MD Attending physician Active Start: July 05, 2025 Dr. Jeffrey Berkowitz MD Referring Provider Active Start: July 05, 2025 Team Status: Inactive Member Role/Relationship Status Dates Dr. Umm Mario MD Primary care physician Activ e Start: July 05, 2025 End: July 05, 2025 Dr. Umm Mario MD Referring Provider Active Start: July 05, 2025 End: July 05, 2025 Dr. Odalis Schmidt MD Attending physician Active Start: July 05, 2025 End: July 05, 2025 (unrecognized sect ion and content) No Status Records FoundNo Status Records FoundNo Status Records Found INFORMATION SOURCE (unrecogn ized section and content) DATE CREATED AUTHOR 06/01/2025 [facility] DATE CREATED AUTHOR AUTHOR'S ORGANIZ ATION 07/18/2025 [facility] DATE CREATED AUTHOR AUTHOR'S ORGANIZ ATION 07/27/2025 [facility] FOR RECORDS PERTAINING TO PATIENTS WHO ARE [...] BE BASED ON THE PRIMARY CLINICAL RECORDS. [facility]. provides no warranty or guarantee of the accuracy or completeness of information in this document.
[2025-08-30 17:39] LABS: Hematocrit 37.5 % (40-54); Hemoglobin 11.7 g/dL (13.0-16.5); Immature Granulocytes Count 0.020 X10^3/uL (0.0-0.0); Mean Corp Hgb Conc 31.2 g/dL (32-36); Mean Corpuscular Volume 98.2 fL (80-94); Mean Platelet Vol. 11.4 fl (6.2-12.0); NRBC Flagged by Analyzer 0 % (0-5); Platelet Count 109 K/mm3 (150-450); RBC Distribution Width CV 17.2 % (11.6-14.6); RBC Distribution Width SD 61.9 fl (35.1-43.9); Red Blood Count 3.82 M/mm3 (4.6-6.2); White Blood Count 7.9 K/mm3 (4.4-11.0)
[2025-08-30 18:22] LABS: AST(SGOT) 25 U/L (<=37); Alanine Aminotransfer ALT/SGPT 11 U/L (<=46); Albumin, Serum 3.6 g/dL (3.4-4.8); Alkaline Phosphatase 68 U/L (40-129); Anion Gap 8 (5-15); BUN 19 mg/dL (4-19); BUN/Creat Ratio 21.4 RATIO (10-20); Calcium,Total 9.4 mg/dL (7.6-11.0); Carbon Dioxide 26.2 mmol/L (21.0-32.0); Chloride 105 mmol/L (98-108); Globulin 4.0 g/dL (2.2-4.2); Glucose 105 mg/dL (70-99); Potassium 4.7 mmol/L (3.3-5.1)
== END | disposition home or self-care (01) ==
LOC: EPLAB 15:09
PROVIDERS: Internal Medicine; PCP Internal Medicine; Visit Provider Internal Medicine
DX: I48.19 Other persistent atrial fibrillation (principal); I10 Essential (primary) hypertension
CPT/HCPCS: 36415; 80053; 84439; 84443; 85025